=== PATIENT | male | born 1950 | race Caucasian/White ===

== ENCOUNTER 2017-01-08 17:58 | Inpatient (IN) | payer OTHER ==
[~2017-01-08] VITALS: Ht 182.9 cm; Wt 128.0 kg
[~2017-01-08 17:58] MED LIST: ACET-1256 PO; ASPI81TA28 PO; CALC-279 PO; CEFT1INJ57 IV; CRG625 PO; ERGO1CAP35 PO; FURO40TA3 PO; GLC/500 PO; METH-446 PO; MGNO400 PO; PEDICHW44 PO; SIME80CH PO; SIMV10TA5 PO; WARF2.5T8 PO; WARF5TAB7 PO
[2017-01-08] MEDS ORDERED: CEFEPIME IV 2,000 MG in DEXTROSE 5% 100ML 100 ML IV STA (18:25)
--- NOTE | 2017-01-08 18:29 | EMERGENCY ROOM VISIT NOTE ---
History Report prepared by Fabian: Ney Brandt Under the Supervision of: Dr. Paulino Thomas M.D. First contact with patient: 18:11 Chief Complaint: LEG PAIN,LEG INJURY Stated Complaint: SOB, SWOLLEN/RED LEG, NAUSEA History of Present Illness The patient is a 66 year old male who presents to the Emergency Room with complaints of a worsening left leg pain that started two days ago. He rates his pain as a 9/10 in severity. The patient states that two days ago he started to develop chills, shortness of breath, and had no appetite. He reports that he slept around 18 hours that day. The patient states that he has only been able to eat a banana, toast, and drink Gatorade in the last three days, but admits that he became nauseous today while eating. The patient states that he noticed his left leg started to swell a couple of days ago and worsened over the last couple of days. He reports that the the leg is red and sensitive to the touch. The patient reports that his heel is also painful and he is not able to put any weight on he left foot. The patient states that he also noticed that there were a couple of open sores on his leg and is concerned that he has an infection in his leg. He admits that he has had something similar happen three years ago and he was diagnosed with an infection. The patient states that his legs typically swell and reports that the swelling is worse in the summer. He admits to a history of Diabetes Mellitus, a pacemaker placement, and atrial fibrillation. The patient reports that he usually takes Coumadin for his atrial fibrillation, but admits he has not taken any in the last couple of days due to his symptoms. He denies a history of blood clots in his legs or lungs and CHF. The patient denies cough, fever, chest pain, injury to his leg, abdominal pain, urinary or bowel symptoms, and trauma. Source of History: patient, family Onset: two days ago Position: leg (left) Symptom Intensity: 9/10 Timing: worsening Associated Symptoms: + chills, + SOB, + nausea, No fevers, No cough, No chest pain, No abdominal pain, No melena, No hematochezia, No diarrhea, No urinary symptoms Review of Systems See HPI for pertinent positives & negatives. A total of 10 systems reviewed and were otherwise negative. Past Medical & Surgical Medical Problems: (1) Atrial fibrillation (2) CHF (congestive heart failure) (3) Diabetes mellitus (4) Diabetic neuropathy (5) Kidney disease (6) PVD (peripheral vascular disease) (7) Spinal stenosis Surgical Problems: (1) H/O gastric bypass Old medical records were reviewed. Nurse's notes were reviewed and I agree with. Family History AFIB SYMPTOMATIC BRADYCARDIA Social History Smoking Status: Former Smoker Marital Status: Occupation Status: unemployed Current/Historical Medications Scheduled Aspirin (Aspirin Ec), 81 MG PO DAILY Atorvastatin (Lipitor), 40 MG PO DAILY Calcium Citrate-Vitamin D (Calcium Citrate + D), 2 TABLETS PO DAILY Cyanocobalamin (B-12), 1,000 MCG INJ [id number] Metformin Hcl (Glucophage), 1,000 MG PO BID Pediatric Multiple Vitamins W/ (Flintstones Plus Iron), 1 CHW PO DAILY Warfarin Sod (Jantoven), 4.5 MG PO DAILY Scheduled PRN Acetaminophen (Tylenol), 1,000 MG PO Q6 PRN for Pain Furosemide (Lasix), 40 MG PO DAILY PRN for SWELLING Methocarbamol (Robaxin), 750 MG PO Q4 PRN for muscle spasms Simethicone (Gas-X), 80 MG PO for gas Allergies Coded Allergies: No Known Allergies (Unverified , 11/09/13) Physical Exam Vital Signs Date Time Temp Pulse Resp B/P (MAP) Pulse Ox O2 Delivery O2 Flow Rate FiO2 01/08/17 18:05 37.0 76 20 155/83 96 Room Air Physical Exam General: Chronically-ill appearing older male in no acute distress. HEENT: Normal cephalic atraumatic. Pupils are equal round and reactive to light. Extraocular movements are intact. Oropharynx is pink with moist mucous membranes. No swelling of the mouth lips or tongue. Neck: Supple with a midline trachea. No meningeal signs or stiffness, no JVD or bruits. No Stridor. Scar from previous neck surgery. Chest: Clear to auscultation bilaterally. No wheezes or rhonchi. No increased work of breathing. Heart: regular rate and rhythm. Abdomen: Soft nontender, nondistended without rebound guarding or rigidity. Extremities: Large scar on right arm from childhood injury. Chronic vascular changes with left greater than right edema. Left leg is red and warm extending slightly above the knee. Good perfusion. No cyanosis or clubbing. No calf tenderness or assymetry. Spine/Back. Non tender to palpation. No CVA tenderness Skin: Good turgor without rashes. Neurologic exam: Cranial nerves two through 12 are intact. Motor and sensation are intact and symmetrical throughout. Medical Decision & Procedures ER Provider Diagnostic Interpretation: Radiology results as stated below per my review and radiologist interpretation: CHEST ONE VIEW PORTABLE HISTORY: Atypical CHEST PAIN COMPARISON: None. FINDINGS: The lungs are clear. Cardiac silhouette is mildly enlarged. This remains unchanged. Sided single lead pacemaker. Cervical spinal fusion hardware. No pleural effusions. No pneumothorax. IMPRESSION: Stable mild cardiomegaly. No acute process within the chest. Electronically signed by: Josafat Hein M.D. 01/08/2017 7:19 PM Dictated Date/Time: 01/08/2017 7:17 PM LEFT LOWER EXTREMITY VENOUS DOPPLER HISTORY: Left leg swelling. COMPARISON STUDY: Venous Doppler 10/25/2013. FINDINGS: There is normal compressibility, flow, and augmentation within the left lower extremity deep venous system. Borderline enlarged left inguinal lymph nodes demonstrate a normal fatty hilum and a thin cortex. These may be reactive. There is subcutaneous edema within the left leg. IMPRESSION: No DVT within the left lower extremity. Electronically signed by: Josafat Hein M.D. 01/08/2017 9:06 PM Dictated Date/Time: 01/08/2017 9:05 PM Laboratory Results 01/08/17 18:45 Red Blood Count 4.91, Mean Corpuscular Volume 81.5, Mean Corpuscular Hemoglobin 26.5, Mean Corpuscular Hemoglobin Concent 32.5, Mean Platelet Volume 10.8, Neutrophils (%) (Auto) 85.8, Lymphocytes (%) (Auto) 5.8, Monocytes (%) (Auto) 7.9, Eosinophils (%) (Auto) 0.2, Basophils (%) (Auto) 0.1, Neutrophils # (Auto) 8.54, Lymphocytes # (Auto) 0.58, Monocytes # (Auto) 0.79, Eosinophils # (Auto) 0.02, Basophils # (Auto) 0.01 01/08/17 18:45 Test 01/08/17 18:45 01/08/17 18:55 White Blood Count 9.96 K/uL (4.8-10.8) Red Blood Count 4.91 M/uL (4.7-6.1) Hemoglobin 13.0 g/dL (14.0-18.0) Hematocrit 40.0 % (42-52) Mean Corpuscular Volume 81.5 fL (80-100) Mean Corpuscular Hemoglobin 26.5 pg (25-34) Mean Corpuscular Hemoglobin Concent 32.5 g/dl (32-36) Platelet Count 133 K/uL (130-400) Mean Platelet Volume 10.8 fL (7.4-10.4) Neutrophils (%) (Auto) 85.8 % Lymphocytes (%) (Auto) 5.8 % Monocytes (%) (Auto) 7.9 % Eosinophils (%) (Auto) 0.2 % Basophils (%) (Auto) 0.1 % Neutrophils # (Auto) 8.54 K/uL (1.4-6.5) Lymphocytes # (Auto) 0.58 K/uL (1.2-3.4) Monocytes # (Auto) 0.79 K/uL (0.11-0.59) Eosinophils # (Auto) 0.02 K/uL (0-0.5) Basophils # (Auto) 0.01 K/uL (0-0.2) RDW Standard Deviation 48.6 fL (36.4-46.3) RDW Coefficient of Variation 16.2 % (11.5-14.5) Immature Granulocyte % (Auto) 0.2 % Immature Granulocyte # (Auto) 0.02 K/uL (0.00-0.02) Prothrombin Time 12.7 SECONDS (9.0-12.0) Prothromb Time International Ratio 1.2 (0.9-1.1) Activated Partial Thromboplast Time 31.8 SECONDS (21.0-31.0) Partial Thromboplastin Ratio 1.2 Anion Gap 9.0 mmol/L (3-11) Est Creatinine Clear Calc Drug Dose 72.2 ml/min Estimated GFR () 59.6 Estimated GFR (Non- 51.4 BUN/Creatinine Ratio 17.6 (10-20) Calcium Level 7.9 mg/dl (8.5-10.1) Magnesium Level 1.8 mg/dl (1.8-2.4) Total Bilirubin 0.9 mg/dl (0.2-1) Direct Bilirubin 0.3 mg/dl (0-0.2) Aspartate Amino Transf (AST/SGOT) 38 U/L (15-37) Alanine Aminotransferase (ALT/SGPT) 28 U/L (12-78) Alkaline Phosphatase 70 U/L (45-117) Pro-B-Type Natriuretic Peptide 3241 pg/ml (0-900) Total Protein 6.6 gm/dl (6.4-8.2) Albumin 2.4 gm/dl (3.4-5.0) Lipase 150 U/L (73-393) Thyroid Stimulating Hormone (TSH) 4.250 uIu/ml (0.300-4.500) Hepatitis C Antibody Screen NEG (NEG) Bedside Lactic Acid Venous 1.90 mmol/L (0.90-1.70) Bedside Troponin I 0.030 ng/ml (0-0.045) Laboratory studies as stated above per my review. Medications Administered Medications (Trade) Dose Ordered Sig/Bill Route Start Time Stop Time Status Last Admin Dose Admin Cefepime HCl 2000 mg/Dextrose 112.5 ml @ 200 mls/hr ONE STAT IV 01/08/17 18:25 01/08/17 18:58 DC 01/08/17 19:09 200 MLS/HR Warfarin Sodium (Coumadin Tab) 5 mg 2016 ONCE PO 01/08/17 20:17 01/08/17 21:08 DC 01/08/17 22:04 5 MG Acetaminophen (Tylenol Tab) 650 mg 2016 ONCE PO 01/08/17 20:17 01/08/17 21:07 DC 01/08/17 22:12 650 MG ECG Indication: SOB/dyspnea Rate (beats per minute): 61 Rhythm: other (ventricularly paced) Findings: no acute ischemic change, other (underlying a fib) Comparison ECG Date: 10/25/2013 Change: no significant change ED Course 1815: Past medical records reviewed. The patient was evaluated in room C08, and a complete history and physical examination were performed. 1824: Ordered Cefepime HCl 2000 mg/Dextrose 112.4 ml @ 200 mls/hr IV. 1917: I reevaluated the patient and he is resting comfortably. 1934: I reevaluated the patient and he is resting comfortably. I updated him on his results and discussed his treatment plan. He agrees to the plan and will be further evaluated. 1937: I discussed the patients case with Erlin You. He understands the patients condition and agrees to accept the patient. The patient will be further evaluated. Medical Decision Differentials include, but are not limited to; cellulitis, CHF, DVT, compartment syndrome, electrolyte and metabolic abnormality. This patient comes in as described above. Placed room C8. Here for treatment and evaluation of left leg pain and swelling. On exam is red and appears very cellulitic. He has chronic vascular changes of his leg in as a set up for infection. He is a diabetic and has a pacemaker is on Coumadin as well for A. fib. He has not been taking his Coumadin and has not felt well over last couple days afebrile and has a stable blood pressure here. IV access established blood cultures was obtained lactic acid was obtained acid a cardiac workup an ultrasound of his leg was obtained to evaluate for possibility of a DVT. He was given empiric cefepime 2 g IV. He has no elevation of his white count or lactic acid to suggest sepsis. He is nothing to suggest acute cardiac event. There is no DVT on ultrasound. I do think he needs to be admitted for further IV antibiotics and treatment of the cellulitis. I have consulted Dr. Hansel Turner. Medication Reconcilliation Current Medication List: was personally reviewed by me Blood Pressure Screening Patient's blood pressure: Elevated blood pressure Referred to Hospitalist. Consults Time Called: 1937 Consulting Physician: Erlin You Returned Call: 1937 I discussed the patients case with Erlin You. He understands the patients condition and agrees to accept the patient. The patient will be further evaluated. Impression Primary Impression: Cellulitis Scribe Attestation The scribe's documentation has been prepared under my direction and personally reviewed by me in its entirety. I confirm that the note above accurately reflects all work, treatment, procedures, and medical decision making performed by me. Departure Information Dispostion Being Evaluated By Hospitalist Referrals Jocelyne Desai D.O. (PCP) Patient Instructions My [facility]
[2017-01-08] MEDS ORDERED: FRS/40 PO (18:43)
[2017-01-08] MEDS ORDERED: CHOL100027 PO (18:43)
[2017-01-08] MEDS ORDERED: MAGN400T6 PO (18:43)
[2017-01-08] MEDS ORDERED: CYCL10TA6 PO (18:43)
[2017-01-08] MEDS ORDERED: METF-384 PO (18:43)
[2017-01-08] MEDS ORDERED: CYAN1SUB13 INJ (18:43)
[2017-01-08] MEDS ORDERED: WARF3TAB6 PO (18:43)
[2017-01-08] MEDS ORDERED: ATOR-24 PO (18:43)
[2017-01-08] MEDS ORDERED: ACET-1256 PO (18:43)
[2017-01-08 19:07] LABS: BASO % 0.1 %; BASO ABS # 0.01 K/uL (0-0.2); COMPLETE YES; EOS % 0.2 %; IG% 0.2 %; LYMPH % 5.8 %; LYMPH ABS # 0.58 K/uL (1.2-3.4); MEAN CELL VOLUME 81.5 fL (80-100); MEAN CORPUSCULAR HEMOGLOBIN 26.5 pg (25-34); MEAN CORPUSCULAR HGB CONC 32.5 g/dl (32-36); MEAN PLATELET VOLUME 10.8 fL (7.4-10.4); MONO % 7.9 %; NEUT % 85.8 %; PLATELET COUNT 133 K/uL (130-400); RED BLOOD COUNT 4.91 M/uL (4.7-6.1); WHITE BLOOD COUNT 9.96 K/uL (4.8-10.8)
[2017-01-08 19:16] LABS: INR 1.2 (0.9-1.1); PARTIAL THROMBOPLASTIN RATIO 1.2; PROTHROMBIN TIME (PATIENT) 12.7 SECONDS (9.0-12.0)
--- NOTE | 2017-01-08 19:20 | DIAGNOSTIC IMAGING REPORT ---
CHEST ONE VIEW PORTABLE HISTORY: Atypical CHEST PAIN COMPARISON: None. FINDINGS: The lungs are clear. Cardiac silhouette is mildly enlarged. This remains unchanged. Sided single lead pacemaker. Cervical spinal fusion hardware. No pleural effusions. No pneumothorax. IMPRESSION: Stable mild cardiomegaly. No acute process within the chest. Electronically signed by: Josafat Hein M.D. 01/08/2017 7:19 PM Dictated Date/Time: 01/08/2017 7:17 PM
[2017-01-08 19:24] LABS: BUN/CREATININE RATIO 17.6 (10-20); CALCIUM 7.9 mg/dl (8.5-10.1); CREATININE 1.43 mg/dl (0.60-1.40); POTASSIUM 3.8 mmol/L (3.5-5.1)
[2017-01-08] MEDS ORDERED: ACETAMINOPHEN 325 MG TAB PO ONE (20:17)
[2017-01-08] MEDS ORDERED: WARFARIN SOD 5 MG TAB PO ONE (20:17)
[2017-01-08] MEDS ORDERED: HYDROmorphone INJ 0.5 MG/0.5 ML SYR IV PRN (20:30)
[2017-01-08] MEDS ORDERED: DEXTROSE 50% 50 ML SYR IV PRN (20:30)
[2017-01-08] MEDS ORDERED: GLUCAGON FOR INJ 1 MG VIAL SQ PRN (20:30)
[2017-01-08] MEDS ORDERED: GLUCOSE 10 TABS/TUBE PO PRN (20:30)
[2017-01-08] MEDS ORDERED: GLUCOSE 40% GEL 15 GM TUBE PO PRN (20:30)
[2017-01-08] MEDS ORDERED: IV FLUIDS COMPLETED PRN ×2 (20:30)
[2017-01-08] MEDS ORDERED: ONDANSETRON INJ 2 MG/ML 2 ML VIAL IV PRN (20:30)
[2017-01-08 20:32] LABS: MAGNESIUM 1.8 mg/dl (1.8-2.4); THYROID STIMULATING HORMONE 4.25 uIu/ml (0.300-4.500)
[2017-01-08 20:46] VITALS: BP 151/84; PULSE 60; TEMP 36.7; O2SAT 96; BMI 38.3
[2017-01-08] MEDS: INSULIN ASPART 100 UNITS/ML 3 ML PEN SC SCH (21:00)
--- NOTE | 2017-01-08 21:07 | DIAGNOSTIC IMAGING REPORT ---
LEFT LOWER EXTREMITY VENOUS DOPPLER HISTORY: Left leg swelling. COMPARISON STUDY: Venous Doppler 10/25/2013. FINDINGS: There is normal compressibility, flow, and augmentation within the left lower extremity deep venous system. Borderline enlarged left inguinal lymph nodes demonstrate a normal fatty hilum and a thin cortex. These may be reactive. There is subcutaneous edema within the left leg. IMPRESSION: No DVT within the left lower extremity. Electronically signed by: Josafat Hein M.D. 01/08/2017 9:06 PM Dictated Date/Time: 01/08/2017 9:05 PM
[2017-01-08 21:30] VITALS: BP 151/84; PULSE 60; TEMP 36.7; O2SAT 96
[2017-01-08] MEDS ORDERED: NSS + 20MEQ KCL 1000ML 1,000 ML IV ONE (21:30)
--- NOTE | 2017-01-08 21:47 | HISTORY & PHYSICAL EXAMINATION ---
DATE OF ADMISSION: 01/08/2017 PRIMARY CARE DOCTOR: Dr. Desai History was obtained from the patient's records. CHIEF COMPLAINT: Left leg swelling. HISTORY OF PRESENT ILLNESS: Medical history is significant for sick sinus syndrome status post pacemaker placement on Coumadin, hypertension; PVD as per records, DM2 on oral medications, chronic anemia ( baseline hemoglobin of 13), past tobacco abuse. Recent confinement was October 2013 for sepsis secondary to left lower extremity cellulitis. CS grew group G beta strep. Few days' history of achy left leg swelling, poor appetite, unable to take his Coumadin due to illness. Some exertional shortness of breath, no chest pain. No fever. Some chills. No recollection off leg trauma. At the Emergency Room, the patient received Cefepime. MEDICAL HISTORY: As above. SURGERIES: Neck surgery, tonsillectomy, toe amputation and finger tendon transfer. HOME MEDICATIONS: Include; metformin, Robaxin, simethicone, Flintstones, Coumadin, aspirin, Tylenol, Lipitor, B12 and Lasix. ALLERGIES: No known drug allergies. FAMILY HISTORY: Heart disease and diabetes. PERSONAL AND SOCIAL HISTORY: Past tobacco use. No chronic intake of alcoholic beverages. home care from time to time. REVIEW OF SYSTEMS: As per HPI. All 10 systems were reviewed. All other ROS negative. PHYSICAL EXAMINATION: VITAL SIGNS: Blood pressure was noted to be 150/80, pulse rate 60, RR 18, temp 36.6 and sats 98 on room air. GENERAL: Noted to be comfortable, in no respiratory distress. SKIN: Pallor. Warm. HEENT: Pale palpebral conjunctivae. No ptosis. Dry buccal mucosa. NECK: No JVD. Supple. No tenderness. CHEST: Clear to auscultation. No tenderness. HEART: irreg. No murmur. ABDOMEN: Soft and nontender. EXTREMITIES: Tender induration left lower extremity, venous stasis. NEUROLOGIC: Coherent. No gross focality. LABORATORIES: Hemoglobin 13, hematocrit 40, white cell count 9.1 and platelets of 140. Sodium 136, potassium 3.8 chloride 101, CO2 27, BUN 27, creatinine 1 and glucose 150. Troponin was 0.03. INR was 1.2. Hemoglobin A1c in September 2016 was 7.4. Chest x-ray; cardiomegaly. ASSESSMENT: 1. Cellulitis, left lower extremity hx chronic venous insufficiency as per records underlying lymphedema No sepsis. 2. Exertional SOB ? PE 3. Hypertension, slightly elevated. 4. Acute renal failure secondary to illness. 5. Sick sinus syndrome sp PPM Coumadin. INR subtherapeutic secondary to missed doses of Coumadin last few days 6. Chronic anemia, hemoglobin at baseline. 7. DM2, on oral meds Reasonable control as of recent outpatient hemoglobin A1c 8. Past tobacco abuse. PLAN: F Doxycycline trial Local measures for LLE cellulitis low threshold for broadening antibiotic coverage if no response to Doxycycline. baseline urinalysis. monitor creatinine response to IV fluids. Defer PE workup for now for exertional SOB sx as workup would not [employer]. Prefer to do IV Heparin - Coumadin bridge tx while INR subtherapeutic. ISS BG goal of 140-180. DVT prophylaxis. Coumadin INR 2-3 Full code. MTDD
[2017-01-08] MEDS: DOXYCYCLINE IV 100 MG in DEXTROSE 5% 100ML 100 ML IV SCH (21:58)
[2017-01-08] MEDS ORDERED: HEPARIN 25,000 UNIT/500ML D5W 500 ML IV PRN (22:00)
[2017-01-08] MEDS: HEPARIN 25,000 UNIT/500ML D5W 500 ML IV PRN (22:35)
[2017-01-08 22:45] LABS: URINE APPEARANCE CLEAR (CLEAR); URINE COLOR DK YELLOW; URINE EPITHELIAL CELL AUTO >30 /lpf (0-5); URINE NITRITE NEG (NEG); URINE SPECIFIC GRAVITY 1.029 (1.000-1.030); UROBILINOGEN POS (NEG); ZZUR CULT IF INDIC CLEAN CATCH YES
[2017-01-08 22:51] LABS: MANUAL MICROSCOPIC REQUIRED? NO; REVIEW REQ? YES; URINE BILIRUBIN NEG (NEG)
[2017-01-08 22:55] LABS: URINE PATH CASTS 1-5 GRANULAR CASTS /lpf (0)
[2017-01-09 00:01] VITALS: BP 133/71; PULSE 62; TEMP 36.8; O2SAT 95
[2017-01-09] MEDS: TRAMADOL HCL 50 MG TAB PO PRN ×3 (00:08→17:15)
[2017-01-09 04:46] LABS: BASO % 0.2 %; BASO ABS # 0.02 K/uL (0-0.2); COMPLETE YES; EOS % 0.8 %; HEMATOCRIT 42.4 % (42-52); IG% 0.3 %; LYMPH ABS # 0.81 K/uL (1.2-3.4); MEAN CELL VOLUME 81.4 fL (80-100); MEAN CORPUSCULAR HEMOGLOBIN 25.9 pg (25-34); MEAN CORPUSCULAR HGB CONC 31.8 g/dl (32-36); MEAN PLATELET VOLUME 11.7 fL (7.4-10.4); MONO % 9.8 %; NEUT % 79.9 %; PLATELET COUNT 140 K/uL (130-400); RED BLOOD COUNT 5.21 M/uL (4.7-6.1); WHITE BLOOD COUNT 8.96 K/uL (4.8-10.8)
[2017-01-09 05:03] LABS: INR 1.3 (0.9-1.1); PARTIAL THROMBOPLASTIN RATIO 1.8; PROTHROMBIN TIME (PATIENT) 13.7 SECONDS (9.0-12.0)
[2017-01-09 05:05] LABS: CREATININE 1.32 mg/dl (0.60-1.40)
[2017-01-09 05:06] LABS: BUN/CREATININE RATIO 19.3 (10-20); CALCIUM 8.1 mg/dl (8.5-10.1); POTASSIUM 3.9 mmol/L (3.5-5.1)
[2017-01-09 08:16] VITALS: BP 144/84; PULSE 62; TEMP 37.1; O2SAT 96
[2017-01-09] MEDS: ATORVASTATIN 40 MG TAB PO SCH (08:29)
[2017-01-09] MEDS: ASPIRIN 81 MG ECTAB PO SCH (08:29)
[2017-01-09] MEDS: DOXYCYCLINE IV 100 MG in DEXTROSE 5% 100ML 100 ML IV SCH ×2 (08:29→20:20)
[2017-01-09 08:30] VITALS: O2SAT 96
[2017-01-09] MEDS: INSULIN ASPART 100 UNITS/ML 3 ML PEN SC SCH ×4 (08:45→21:13)
--- NOTE | 2017-01-09 10:58 | Clinical Documentation Query ---
CLINICAL DOCUMENTATION QUERY Dr. CASTILLO, In your clinical opinion is this patient being managed for: ( x ) Chronic kidney disease, stage 3 ( ) Not Agree ( ) Other explanation of clinical findings (Please Explain) ( ) Unable to determine (Please Define) ( ) Need to Discuss The medical record reflects the following clinical findings, treatment, and risk factors. Clinical Indicators: 66 yo male documented as having "kidney disease." Review of limited historical record (Dec 2016) showed GFR of 51-56. 2013 data revealed GFR in the 64-90 range. Treatment: monitor PRP's, treat comorbid conditions Risk Factors: DM, A fib, PVD Please clarify and document your clinical opinion in the progress notes and discharge summary. Terms such as "probable", "suspected", "likely", "questionable", "possible", or "still to be ruled out" are acceptable. IF IN AGREEMENT, YOU MUST DOCUMENT ABOVE DIAGNOSTIC STATEMENT IN DAILY PROGRESS NOTES AND DISCHARGE SUMMARY. This document is not part of the patient's record. Thank You, Capri Castro RN [phone]
[2017-01-09] MEDS: CEFTRIAXONE SOD INJ 1 GM in DEXTROSE 5% ADD-VANTAGE 50ML 50 ML IV SCH (13:16)
[2017-01-09] MEDS: HEPARIN 25,000 UNIT/500ML D5W 500 ML IV PRN (13:23)
[2017-01-09 14:24] VITALS: Ht 182.9 cm; Wt 128.0 kg
[2017-01-09 15:22] VITALS: BP 153/88; PULSE 60; TEMP 36.9; O2SAT 96
[2017-01-09] MEDS ORDERED: WARFARIN SOD 5 MG TAB PO SCH (16:00)
--- NOTE | 2017-01-09 16:21 | Progress Note ---
Internal Med Progress Note Date of Service: Jan 09, 2017. Provider Documentation: SUBJECTIVE: resting comfortably afebrile says pain in left heel is improving was nauseous on weekend but ok now sob since last few days OBJECTIVE: Vital Signs-as noted below Exam: General-alert and oriented. Not in distress ENT-Normal hearing Neck-no neck masses Lungs-CTA b/l no wheezing or crackles Heart-S1 and S2 heard. Regular rate and rhythm, no murmurs Abdomen-Soft Bowel sounds present no tenderness present no distension Extremities- b/l lower extremity chronic edema. Left lower extremity erythematous Neuro-alert and awake moves extremities Lab data as noted below. ASSESSMENT & PLAN: 1. Cellulitis, left lower extremity hx chronic venous insufficiency as per records underlying lymphedema No sepsis. started on doxycycline hx of group G beta strep cellulitis in the past will add Rocephin to cover strep will monitor response. 2. Exertional SOB ? PE No DVT on left lower extremity US already on iv heparin and Coumadin. 3. Hypertension, slightly elevated. Not on mes at home will monitor. 4. Acute renal failure secondary to illness. Resolved. 5. Sick sinus syndrome sp PPM Coumadin. INR subtherapeutic secondary to missed doses of Coumadin last few days secondary to nausea. iv heparin bridge. At home on Coumadin 4.5mg daily currently laced on Coumadin 6mg daily. f/u inr. 6. Chronic anemia, hemoglobin at baseline. 7. DM2, on oral meds Reasonable control as of recent outpatient hemoglobin A1c Needs prescription for FreeStyle Lite test strips and Lancets to check 1x/day at discharge. 8. CKD stage 3 f/u labs 9. Past tobacco abuse. DVT PROPHYLAXIS on iv heparin DISPOSITION to be determined pt/ot prior to discharge Vital Signs: Date Time Temp Pulse Resp B/P (MAP) Pulse Ox O2 Delivery O2 Flow Rate FiO2 01/09/17 15:22 36.9 60 17 153/88 (109) 96 01/09/17 08:30 96 Room Air 01/09/17 08:16 37.1 62 17 144/84 (104) 96 01/09/17 00:01 36.8 62 20 133/71 (91) 95 Room Air 01/09/17 00:00 Room Air 01/08/17 21:30 36.7 60 20 151/84 (106) 96 Room Air 01/08/17 20:46 36.7 60 20 151/84 96 Room Air 01/08/17 20:33 75 18 143/82 98 Room Air 01/08/17 18:05 37.0 76 20 155/83 96 Room Air Lab Results: Results Past 24 Hours Test 01/08/17 18:45 01/08/17 18:55 01/08/17 22:00 01/08/17 22:14 Range/Units White Blood Count 9.96 4.8-10.8 K/uL Red Blood Count 4.91 4.7-6.1 M/uL Hemoglobin 13.0 14.0-18.0 g/dL Hematocrit 40.0 42-52 % Mean Corpuscular Volume 81.5 80-100 fL Mean Corpuscular Hemoglobin 26.5 25-34 pg Mean Corpuscular Hemoglobin Concent 32.5 32-36 g/dl Platelet Count 133 130-400 K/uL Mean Platelet Volume 10.8 7.4-10.4 fL Neutrophils (%) (Auto) 85.8 % Lymphocytes (%) (Auto) 5.8 % Monocytes (%) (Auto) 7.9 % Eosinophils (%) (Auto) 0.2 % Basophils (%) (Auto) 0.1 % Neutrophils # (Auto) 8.54 1.4-6.5 K/uL Lymphocytes # (Auto) 0.58 1.2-3.4 K/uL Monocytes # (Auto) 0.79 0.11-0.59 K/uL Eosinophils # (Auto) 0.02 0-0.5 K/uL Basophils # (Auto) 0.01 0-0.2 K/uL RDW Standard Deviation 48.6 36.4-46.3 fL RDW Coefficient of Variation 16.2 11.5-14.5 % Immature Granulocyte % (Auto) 0.2 % Immature Granulocyte # (Auto) 0.02 0.00-0.02 K/uL Prothrombin Time 12.7 9.0-12.0 SECONDS Prothromb Time International Ratio 1.2 0.9-1.1 Activated Partial Thromboplast Time 31.8 21.0-31.0 SECONDS Partial Thromboplastin Ratio 1.2 Sodium Level 134 136-145 mmol/L Potassium Level 3.8 3.5-5.1 mmol/L Chloride Level 101 98-107 mmol/L Carbon Dioxide Level 24 21-32 mmol/L Anion Gap 9.0 3-11 mmol/L Blood Urea Nitrogen 25 7-18 mg/dl Creatinine 1.43 0.60-1.40 mg/dl Est Creatinine Clear Calc Drug Dose 72.2 ml/min Estimated GFR () 59.6 Estimated GFR (Non- 51.4 BUN/Creatinine Ratio 17.6 10-20 Random Glucose 150 70-99 mg/dl Calcium Level 7.9 8.5-10.1 mg/dl Magnesium Level 1.8 1.8-2.4 mg/dl Total Bilirubin 0.9 0.2-1 mg/dl Direct Bilirubin 0.3 0-0.2 mg/dl Aspartate Amino Transf (AST/SGOT) 38 15-37 U/L Alanine Aminotransferase (ALT/SGPT) 28 12-78 U/L Alkaline Phosphatase 70 45-117 U/L Pro-B-Type Natriuretic Peptide 3241 0-900 pg/ml Total Protein 6.6 6.4-8.2 gm/dl Albumin 2.4 3.4-5.0 gm/dl Lipase 150 73-393 U/L Thyroid Stimulating Hormone (TSH) 4.250 0.300-4.500 uIu/ml Hepatitis C Antibody Screen NEG NEG Bedside Lactic Acid Venous 1.90 0.90-1.70 mmol/L Bedside Troponin I 0.030 0-0.045 ng/ml Urine Color DK YELLOW Urine Appearance CLEAR CLEAR Urine pH 5.0 4.5-7.5 Urine Specific [place] 1.029 1.000-1.030 Urine Protein 4+ NEG Urine Glucose (UA) NEG NEG Urine Ketones TRACE NEG Urine Occult Blood 1+ NEG Urine Nitrite NEG NEG Urine Bilirubin NEG NEG Urine Urobilinogen POS NEG Urine Leukocyte Esterase TRACE NEG Urine WBC (Auto) 10-30 0-5 /hpf Urine RBC (Auto) 0-4 0-4 /hpf Urine Hyaline Casts (Auto) 1-5 0-5 /lpf Urine Epithelial Cells (Auto) >30 0-5 /lpf Urine Bacteria (Auto) 2+ NEG Urine Renal Epithelial Cells 0-5 /lpf Urine Pathogenic Casts 1-5 GRANULAR CASTS 0 /lpf Urine Yeast (Auto) NONE PRSENT Bedside Glucose 139 70-99 mg/dl Test 01/09/17 04:24 01/09/17 08:03 01/09/17 11:51 01/09/17 16:35 Range/Units White Blood Count 8.96 4.8-10.8 K/uL Red Blood Count 5.21 4.7-6.1 M/uL Hemoglobin 13.5 14.0-18.0 g/dL Hematocrit 42.4 42-52 % Mean Corpuscular Volume 81.4 80-100 fL Mean Corpuscular Hemoglobin 25.9 25-34 pg Mean Corpuscular Hemoglobin Concent 31.8 32-36 g/dl Platelet Count 140 130-400 K/uL Mean Platelet Volume 11.7 7.4-10.4 fL Neutrophils (%) (Auto) 79.9 % Lymphocytes (%) (Auto) 9.0 % Monocytes (%) (Auto) 9.8 % Eosinophils (%) (Auto) 0.8 % Basophils (%) (Auto) 0.2 % Neutrophils # (Auto) 7.15 1.4-6.5 K/uL Lymphocytes # (Auto) 0.81 1.2-3.4 K/uL Monocytes # (Auto) 0.88 0.11-0.59 K/uL Eosinophils # (Auto) 0.07 0-0.5 K/uL Basophils # (Auto) 0.02 0-0.2 K/uL RDW Standard Deviation 48.3 36.4-46.3 fL RDW Coefficient of Variation 16.0 11.5-14.5 % Immature Granulocyte % (Auto) 0.3 % Immature Granulocyte # (Auto) 0.03 0.00-0.02 K/uL Prothrombin Time 13.7 9.0-12.0 SECONDS Prothromb Time International Ratio 1.3 0.9-1.1 Activated Partial Thromboplast Time 47.1 21.0-31.0 SECONDS Partial Thromboplastin Ratio 1.8 Sodium Level 133 136-145 mmol/L Potassium Level 3.9 3.5-5.1 mmol/L Chloride Level 102 98-107 mmol/L Carbon Dioxide Level 23 21-32 mmol/L Anion Gap 8.0 3-11 mmol/L Blood Urea Nitrogen 25 7-18 mg/dl Creatinine 1.32 0.60-1.40 mg/dl Est Creatinine Clear Calc Drug Dose 78.2 ml/min Estimated GFR () 65.6 Estimated GFR (Non- 56.6 BUN/Creatinine Ratio 19.3 10-20 Random Glucose 161 70-99 mg/dl Calcium Level 8.1 8.5-10.1 mg/dl Bedside Glucose 153 169 136 70-99 mg/dl Microbiology Results 01/08/17 Blood Culture, Received Pending 01/08/17 Blood Culture, Received Pending 01/08/17 Urine Culture - Preliminary, Resulted PIN-POINT GROWTH PRESENT, REINCUBATING.
[2017-01-09 17:00] VITALS: O2SAT 96
[2017-01-09] MEDS: WARFARIN SOD 6 MG TAB PO SCH (17:16)
[2017-01-09] MEDS: ACETAMINOPHEN 325 MG TAB PO PRN (20:18)
[2017-01-09 23:01] VITALS: BP 156/85; PULSE 66; TEMP 36.9; O2SAT 97
[2017-01-10] MEDS: TRAMADOL HCL 50 MG TAB PO PRN ×3 (03:04→15:29)
[2017-01-10] MEDS: HEPARIN 25,000 UNIT/500ML D5W 500 ML IV PRN ×2 (03:32→19:12)
[2017-01-10 04:42] LABS: BASO % 0.2 %; BASO ABS # 0.02 K/uL (0-0.2); COMPLETE YES; EOS % 1.9 %; HEMATOCRIT 38.6 % (42-52); IG% 0.6 %; LYMPH % 9.6 %; LYMPH ABS # 0.87 K/uL (1.2-3.4); MEAN CELL VOLUME 80.1 fL (80-100); MEAN CORPUSCULAR HEMOGLOBIN 25.7 pg (25-34); MEAN CORPUSCULAR HGB CONC 32.1 g/dl (32-36); MEAN PLATELET VOLUME 10.4 fL (7.4-10.4); MONO % 9.6 %; NEUT % 78.1 %; PLATELET COUNT 141 K/uL (130-400); RED BLOOD COUNT 4.82 M/uL (4.7-6.1); WHITE BLOOD COUNT 9.05 K/uL (4.8-10.8)
[2017-01-10 04:58] LABS: BUN/CREATININE RATIO 16.9 (10-20); CALCIUM 8.1 mg/dl (8.5-10.1); CREATININE 1.15 mg/dl (0.60-1.40); POTASSIUM 3.7 mmol/L (3.5-5.1)
[2017-01-10 05:05] LABS: INR 1.3 (0.9-1.1); PARTIAL THROMBOPLASTIN RATIO 2.1; PROTHROMBIN TIME (PATIENT) 14.5 SECONDS (9.0-12.0)
[2017-01-10 07:42] VITALS: BP 164/90; PULSE 67; TEMP 36.7; O2SAT 97
[2017-01-10 08:00] VITALS: O2SAT 97
[2017-01-10] MEDS: DOXYCYCLINE IV 100 MG in DEXTROSE 5% 100ML 100 ML IV SCH ×2 (08:58→20:13)
[2017-01-10] MEDS: INSULIN ASPART 100 UNITS/ML 3 ML PEN SC SCH ×4 (08:58→20:13)
[2017-01-10] MEDS: ASPIRIN 81 MG ECTAB PO SCH (08:59)
[2017-01-10] MEDS: ATORVASTATIN 40 MG TAB PO SCH (08:59)
--- NOTE | 2017-01-10 13:05 | Progress Note ---
Internal Med Progress Note Date of Service: Jan 10, 2017. Provider Documentation: SUBJECTIVE: awake and alert. denies pain. denies shortness of breath. OBJECTIVE: Exam: General- no acute distress, breathing comfortably on room air Eyes- EOMI ENT- no epistaxis Neck- no JVD Lungs- CTABL, no wheezing, no crackles Heart- regular rate Abdomen- soft, nontender, + bowel sounds Extremities- lower extremity with chronic edema of lower extremities bilterally with left leg greater then the right side and left leg with erythema from ankle to to below the knee Neuro-no focal neurological deficits ASSESSMENT & PLAN: 1. Cellulitis, left lower extremity History of chronic venous insufficiency as per records, patient reports history of furosemide intermittently in the past at home Ultrasound of Left Lower extremity: No DVT. Borderline enlarged left inguinal lymph nodes demonstrate a normal fatty hilum and a thin cortex. These may be reactive. There is subcutaneous edema within the left leg Patient was started on Doxycycline and with history of group G beta strep cellulitis in the past, patient has also been on IV ceftriaxone for strep coverage 2. History of Exertional SOB No DVT on left lower extremity US, On IV heparin and Coumadin Obtain PT/OT 3. Hypertension Not on medications at home Start HCTZ as inpatient 4. Acute renal failure secondary to illness. Resolved.Trend GFR 5. Sick sinus syndrome sp PPM Coumadin. INR subtherapeutic secondary to missed doses of Coumadin 4.5 mg daily at home from history of nausea Currently on IV heparin with bridge to Coumadin, currently Coumadin 6 mg daily INR on 01/10/17 is 1.3, subtherapeutic Continue IV heparin and daily Coumadin 6. Chronic anemia, hemoglobin at baseline. 7. DM2, on oral meds Needs prescription for FreeStyle Lite test strips and Lancets to check 1x/day at discharge. 8. CKD, trend GFR 9. Past tobacco abuse. DVT PROPHYLAXIS on IV heparin Vital Signs: Date Time Temp Pulse Resp B/P (MAP) Pulse Ox O2 Delivery O2 Flow Rate FiO2 01/10/17 07:42 36.7 67 20 164/90 (114) 97 Room Air 01/10/17 02:29 Room Air 01/09/17 23:01 36.9 66 18 156/85 (108) 97 Room Air 01/09/17 20:30 Room Air 01/09/17 17:00 96 Room Air 01/09/17 15:22 36.9 60 17 153/88 (109) 96 Lab Results: Results Past 24 Hours Test 01/09/17 16:35 01/09/17 20:12 01/10/17 04:30 01/10/17 07:46 Range/Units Bedside Glucose 136 183 146 70-99 mg/dl White Blood Count 9.05 4.8-10.8 K/uL Red Blood Count 4.82 4.7-6.1 M/uL Hemoglobin 12.4 14.0-18.0 g/dL Hematocrit 38.6 42-52 % Mean Corpuscular Volume 80.1 80-100 fL Mean Corpuscular Hemoglobin 25.7 25-34 pg Mean Corpuscular Hemoglobin Concent 32.1 32-36 g/dl Platelet Count 141 130-400 K/uL Mean Platelet Volume 10.4 7.4-10.4 fL Neutrophils (%) (Auto) 78.1 % Lymphocytes (%) (Auto) 9.6 % Monocytes (%) (Auto) 9.6 % Eosinophils (%) (Auto) 1.9 % Basophils (%) (Auto) 0.2 % Neutrophils # (Auto) 7.07 1.4-6.5 K/uL Lymphocytes # (Auto) 0.87 1.2-3.4 K/uL Monocytes # (Auto) 0.87 0.11-0.59 K/uL Eosinophils # (Auto) 0.17 0-0.5 K/uL Basophils # (Auto) 0.02 0-0.2 K/uL RDW Standard Deviation 46.0 36.4-46.3 fL RDW Coefficient of Variation 15.7 11.5-14.5 % Immature Granulocyte % (Auto) 0.6 % Immature Granulocyte # (Auto) 0.05 0.00-0.02 K/uL Prothrombin Time 14.5 9.0-12.0 SECONDS Prothromb Time International Ratio 1.3 0.9-1.1 Activated Partial Thromboplast Time 55.2 21.0-31.0 SECONDS Partial Thromboplastin Ratio 2.1 Sodium Level 135 136-145 mmol/L Potassium Level 3.7 3.5-5.1 mmol/L Chloride Level 102 98-107 mmol/L Carbon Dioxide Level 24 21-32 mmol/L Anion Gap 9.0 3-11 mmol/L Blood Urea Nitrogen 19 7-18 mg/dl Creatinine 1.15 0.60-1.40 mg/dl Est Creatinine Clear Calc Drug Dose 89.7 ml/min Estimated GFR () 77.5 Estimated GFR (Non- 66.9 BUN/Creatinine Ratio 16.9 10-20 Random Glucose 148 70-99 mg/dl Calcium Level 8.1 8.5-10.1 mg/dl Test 01/10/17 11:32 Range/Units Bedside Glucose 127 70-99 mg/dl
[2017-01-10] MEDS ORDERED: HYDROCHLOROTHIAZIDE 25 MG TAB PO STA (13:20)
[2017-01-10] MEDS: CEFTRIAXONE SOD INJ 1 GM in DEXTROSE 5% ADD-VANTAGE 50ML 50 ML IV SCH (13:53)
[2017-01-10] MEDS: ACETAMINOPHEN 325 MG TAB PO PRN (13:59)
[2017-01-10] MEDS ORDERED: SENNA 8.6 MG TAB PO ONE (15:15)
[2017-01-10] MEDS ORDERED: DOCUSATE SODIUM 100 MG CAP PO ONE (15:15)
[2017-01-10 15:26] VITALS: PULSE 71; O2SAT 98
[2017-01-10] MEDS: WARFARIN SOD 6 MG TAB PO SCH (15:30)
[2017-01-10 15:37] VITALS: BP 149/91; PULSE 64; TEMP 36.1; O2SAT 96
[2017-01-10 16:00] VITALS: O2SAT 97
[2017-01-10] MEDS: DOCUSATE SODIUM 100 MG CAP PO SCH (20:14)
[2017-01-10 23:10] VITALS: BP 146/87; PULSE 64; TEMP 36.4; O2SAT 97
[2017-01-11] MEDS: TRAMADOL HCL 50 MG TAB PO PRN (01:18)
[2017-01-11] MEDS ORDERED: NURSING DECISION MEDICATION ORDER SCH ×2 (01:30→05:45)
[2017-01-11] MEDS ORDERED: COUGH DROP (SUGAR FREE) LOZ 24 LOZ/1 BOX PO PRN (01:30)
[2017-01-11] MEDS ORDERED: MICONAZOLE NITRATE POWDER 43 GM EXT PRN (06:00)
[2017-01-11 06:13] LABS: BASO % 0.1 %; BASO ABS # 0.01 K/uL (0-0.2); COMPLETE YES; EOS % 2.5 %; HEMATOCRIT 36.6 % (42-52); IG% 0.6 %; LYMPH % 14.7 %; LYMPH ABS # 1.05 K/uL (1.2-3.4); MEAN CELL VOLUME 79.7 fL (80-100); MEAN CORPUSCULAR HEMOGLOBIN 26.6 pg (25-34); MEAN CORPUSCULAR HGB CONC 33.3 g/dl (32-36); MEAN PLATELET VOLUME 11.1 fL (7.4-10.4); MONO % 10.8 %; NEUT % 71.3 %; PLATELET COUNT 158 K/uL (130-400); RED BLOOD COUNT 4.59 M/uL (4.7-6.1); WHITE BLOOD COUNT 7.16 K/uL (4.8-10.8)
[2017-01-11 06:30] LABS: INR 1.6 (0.9-1.1); PARTIAL THROMBOPLASTIN RATIO 2.1; PROTHROMBIN TIME (PATIENT) 17.7 SECONDS (9.0-12.0)
[2017-01-11] MEDS: HEPARIN 25,000 UNIT/500ML D5W 500 ML IV PRN ×2 (06:37→23:48)
[2017-01-11 06:39] LABS: BUN/CREATININE RATIO 16.1 (10-20); POTASSIUM 3.3 mmol/L (3.5-5.1)
[2017-01-11 07:31] VITALS: BP 148/81; PULSE 60; TEMP 36.8; O2SAT 97
[2017-01-11] MEDS ORDERED: POTASSIUM CHLORIDE 20 MEQ TABCR PO STA (07:48)
[2017-01-11 08:15] VITALS: O2SAT 97
[2017-01-11] MEDS: DOCUSATE SODIUM 100 MG CAP PO SCH ×2 (08:18→19:25)
[2017-01-11] MEDS: DOXYCYCLINE IV 100 MG in DEXTROSE 5% 100ML 100 ML IV SCH ×2 (08:18→20:49)
[2017-01-11] MEDS: ASPIRIN 81 MG ECTAB PO SCH (08:18)
[2017-01-11] MEDS: ATORVASTATIN 40 MG TAB PO SCH (08:19)
[2017-01-11] MEDS: HYDROCHLOROTHIAZIDE 25 MG TAB PO SCH (08:19)
[2017-01-11] MEDS: SENNA 8.6 MG TAB PO SCH (08:20)
[2017-01-11] MEDS: INSULIN ASPART 100 UNITS/ML 3 ML PEN SC SCH ×4 (09:25→20:49)
[2017-01-11] MEDS: CEFTRIAXONE SOD INJ 1 GM in DEXTROSE 5% ADD-VANTAGE 50ML 50 ML IV SCH (12:20)
[2017-01-11 14:59] VITALS: BP 143/79; PULSE 63; TEMP 37.3; O2SAT 97
[2017-01-11] MEDS: WARFARIN SOD 6 MG TAB PO SCH (15:56)
[2017-01-11] MEDS ORDERED: MAGNESIUM SULFATE 1GM / D5W 1 GM BAG IV STA (17:11)
--- NOTE | 2017-01-11 17:20 | Progress Note ---
Internal Med Progress Note Date of Service: Jan 11, 2017. Provider Documentation: SUBJECTIVE: awake and alert. denies pain. denies shortness of breath. OBJECTIVE: Exam: General- no acute distress, breathing comfortably on room air Eyes- EOMI ENT- no epistaxis Neck- no JVD Lungs- CTABL, no wheezing, no crackles Heart- regular rate Abdomen- soft, nontender, + bowel sounds Extremities- lower extremity with chronic edema of lower extremities bilaterally with left leg greater then the right side and left leg with erythema from ankle to to below the knee Neuro-no focal neurological deficits ASSESSMENT & PLAN: Cellulitis, left lower extremity History of chronic venous insufficiency as per records, patient reports history of furosemide intermittently in the past at home Ultrasound of Left Lower extremity: No DVT. Borderline enlarged left inguinal lymph nodes demonstrate a normal fatty hilum and a thin cortex. These may be reactive. There is subcutaneous edema within the left leg Patient was started on Doxycycline and with history of group G beta strep cellulitis in the past, patient has also been on IV ceftriaxone for strep coverage History of Exertional SOB No DVT on left lower extremity US, On IV heparin and Coumadin PT/OT Reports that he used to be on intermittent Lasix at home in the past. Would not start Lasix at this time given serum electrolyte deficiencies while receiving HCTZ for blood pressure control Hypokalemia/Hypomagnesemia: given potassium and magnesium supplements today Acute renal failure secondary to illness. Resolved. Trend GFR 5. Sick sinus syndrome sp PPM Coumadin. INR subtherapeutic secondary to missed doses of Coumadin 4.5 mg daily at home from history of nausea Currently on IV heparin with bridge to Coumadin, currently Coumadin 6 mg daily INR on 01/11/17 is 1.6, subtherapeutic Continue IV heparin and daily Coumadin 6. Chronic anemia, hemoglobin at baseline. 7. DM2, on oral meds Needs prescription for FreeStyle Lite test strips and Lancets to check 1x/day at discharge. 8. CKD, trend GFR 9. Past tobacco use / smoking cessation counseling ordered DVT PROPHYLAXIS on IV heparin and on oral Coumadin Vital Signs: Date Time Temp Pulse Resp B/P (MAP) Pulse Ox O2 Delivery O2 Flow Rate FiO2 01/11/17 16:00 Room Air 01/11/17 14:59 37.3 63 18 143/79 (100) 97 Room Air 01/11/17 08:15 97 Room Air 01/11/17 07:31 36.8 60 18 148/81 (103) 97 Room Air 01/11/17 07:31 97 Room Air 01/11/17 00:00 Room Air 01/10/17 23:10 36.4 64 20 146/87 (106) 97 Room Air 01/10/17 20:00 Room Air Lab Results: Results Past 24 Hours Test 01/10/17 20:08 01/11/17 05:06 01/11/17 07:17 01/11/17 11:32 Range/Units Bedside Glucose 151 131 149 70-99 mg/dl White Blood Count 7.16 4.8-10.8 K/uL Red Blood Count 4.59 4.7-6.1 M/uL Hemoglobin 12.2 14.0-18.0 g/dL Hematocrit 36.6 42-52 % Mean Corpuscular Volume 79.7 80-100 fL Mean Corpuscular Hemoglobin 26.6 25-34 pg Mean Corpuscular Hemoglobin Concent 33.3 32-36 g/dl Platelet Count 158 130-400 K/uL Mean Platelet Volume 11.1 7.4-10.4 fL Neutrophils (%) (Auto) 71.3 % Lymphocytes (%) (Auto) 14.7 % Monocytes (%) (Auto) 10.8 % Eosinophils (%) (Auto) 2.5 % Basophils (%) (Auto) 0.1 % Neutrophils # (Auto) 5.11 1.4-6.5 K/uL Lymphocytes # (Auto) 1.05 1.2-3.4 K/uL Monocytes # (Auto) 0.77 0.11-0.59 K/uL Eosinophils # (Auto) 0.18 0-0.5 K/uL Basophils # (Auto) 0.01 0-0.2 K/uL RDW Standard Deviation 45.5 36.4-46.3 fL RDW Coefficient of Variation 15.6 11.5-14.5 % Immature Granulocyte % (Auto) 0.6 % Immature Granulocyte # (Auto) 0.04 0.00-0.02 K/uL Prothrombin Time 17.7 9.0-12.0 SECONDS Prothromb Time International Ratio 1.6 0.9-1.1 Activated Partial Thromboplast Time 53.4 21.0-31.0 SECONDS Partial Thromboplastin Ratio 2.1 Sodium Level 134 136-145 mmol/L Potassium Level 3.3 3.5-5.1 mmol/L Chloride Level 101 98-107 mmol/L Carbon Dioxide Level 26 21-32 mmol/L Anion Gap 7.0 3-11 mmol/L Blood Urea Nitrogen 16 7-18 mg/dl Creatinine 1.00 0.60-1.40 mg/dl Est Creatinine Clear Calc Drug Dose 103.2 ml/min Estimated GFR () 91.8 Estimated GFR (Non- 79.2 BUN/Creatinine Ratio 16.1 10-20 Random Glucose 135 70-99 mg/dl Calcium Level 8.0 8.5-10.1 mg/dl Magnesium Level 1.7 1.8-2.4 mg/dl Test 01/11/17 16:43 Range/Units Bedside Glucose 125 70-99 mg/dl
[2017-01-11] MEDS: MAGNESIUM SULFATE 1GM / D5W 1 GM in PREMIXED IN D5W 100 ML IV SCH ×2 (18:12→19:24)
[2017-01-11 23:54] VITALS: BP 148/79; PULSE 60; TEMP 36.9; O2SAT 95
[2017-01-12 05:06] LABS: BASO % 0.2 %; BASO ABS # 0.01 K/uL (0-0.2); COMPLETE YES; EOS % 2.6 %; HEMATOCRIT 39.3 % (42-52); IG% 0.7 %; LYMPH % 17.7 %; LYMPH ABS # 1.07 K/uL (1.2-3.4); MEAN CELL VOLUME 79.9 fL (80-100); MEAN CORPUSCULAR HGB CONC 32.6 g/dl (32-36); MEAN PLATELET VOLUME 10.2 fL (7.4-10.4); MONO % 10.9 %; NEUT % 67.9 %; PLATELET COUNT 200 K/uL (130-400); RED BLOOD COUNT 4.92 M/uL (4.7-6.1); WHITE BLOOD COUNT 6.04 K/uL (4.8-10.8)
[2017-01-12 05:26] LABS: INR 2.3 (0.9-1.1); PARTIAL THROMBOPLASTIN RATIO 2.8; PROTHROMBIN TIME (PATIENT) 25.3 SECONDS (9.0-12.0)
[2017-01-12 05:50] LABS: ALB/GLOB RATIO 0.5 (0.9-2); BUN/CREATININE RATIO 13.3 (10-20); CALCIUM 8.3 mg/dl (8.5-10.1); CREATININE 1.09 mg/dl (0.60-1.40); MAGNESIUM 1.9 mg/dl (1.8-2.4); POTASSIUM 3.8 mmol/L (3.5-5.1)
[2017-01-12] MEDS ORDERED: NURSING VERBAL MED ORDER ONE (06:15)
[2017-01-12 07:49] VITALS: BP 134/76; PULSE 61; TEMP 36.8; O2SAT 95
[2017-01-12] MEDS: DOCUSATE SODIUM 100 MG CAP PO SCH ×2 (08:00→20:39)
[2017-01-12] MEDS: SENNA 8.6 MG TAB PO SCH (08:00)
[2017-01-12] MEDS: DOXYCYCLINE IV 100 MG in DEXTROSE 5% 100ML 100 ML IV SCH (08:02)
[2017-01-12] MEDS: ASPIRIN 81 MG ECTAB PO SCH (08:02)
[2017-01-12] MEDS: HYDROCHLOROTHIAZIDE 25 MG TAB PO SCH (08:02)
[2017-01-12] MEDS: ATORVASTATIN 40 MG TAB PO SCH (08:02)
[2017-01-12] MEDS: INSULIN ASPART 100 UNITS/ML 3 ML PEN SC SCH ×4 (09:10→20:36)
[2017-01-12] MEDS: TRAMADOL HCL 50 MG TAB PO PRN ×2 (09:17→15:59)
[2017-01-12] MEDS ORDERED: CEPHALEXIN MONOHYDRATE 500 MG CAP PO SCH (12:00)
[2017-01-12 15:07] VITALS: BP 138/78; PULSE 60; TEMP 37; O2SAT 94
[2017-01-12 16:00] VITALS: O2SAT 94
[2017-01-12] MEDS: WARFARIN SOD 6 MG TAB PO SCH (16:00)
[2017-01-12] MEDS: CEPHALEXIN MONOHYDRATE 500 MG CAP PO SCH ×2 (18:04→20:37)
--- NOTE | 2017-01-12 20:17 | Progress Note ---
Internal Med Progress Note Date of Service: Jan 12, 2017. Provider Documentation: SUBJECTIVE: awake and alert. denies pain. denies shortness of breath. OBJECTIVE: Exam: General- no acute distress, breathing comfortably on room air Eyes- EOMI ENT- no epistaxis Neck- no JVD Lungs- CTABL, no wheezing, no crackles Heart- regular rate Abdomen- soft, nontender, + bowel sounds Extremities- lower extremity with chronic edema of lower extremities bilaterally with left leg greater then the right side and left leg with erythema from ankle to to below the knee Neuro-no focal neurological deficits ASSESSMENT & PLAN: Cellulitis, left lower extremity History of chronic venous insufficiency as per records, patient reports history of furosemide intermittently in the past at home Ultrasound of Left Lower extremity: No DVT. Borderline enlarged left inguinal lymph nodes demonstrate a normal fatty hilum and a thin cortex. These may be reactive. There is subcutaneous edema within the left leg Patient was started on Doxycycline IV and with history of group G beta strep cellulitis in the past, patient has also been on IV ceftriaxone for strep coverage, transitioned to oral doxycycline and oral Keflex on 01/12/17 Acute renal failure secondary to illness. Resolved. History of Exertional SOB, Reports that he used to be on intermittent Lasix at home in the past but no longer No DVT on left lower extremity US, On IV heparin and Coumadin PT/OT Sick sinus syndrome sp PPM Coumadin. INR subtherapeutic secondary to missed doses of Coumadin 4.5 mg daily at home from history of nausea Was on IV heparin with bridge to Coumadin, currently Coumadin 6 mg daily INR on 01/12/17 is 2.3, therapeutic Chronic anemia, hemoglobin at baseline. DM2, on oral meds Needs prescription for FreeStyle Lite test strips and Lancets to check 1x/day at discharge. CKD, trend GFR Past tobacco use / smoking cessation counseling ordered DVT PROPHYLAXIS coumadin with therapeutic INR Disposition: patient will have outpatient followup after hospital stay scheduled 01/20/2017 2:00 PM Jocelyne Desai DO Internal Medicine [facility] Vital Signs: Date Time Temp Pulse Resp B/P (MAP) Pulse Ox O2 Delivery O2 Flow Rate FiO2 01/12/17 16:00 94 Room Air 01/12/17 15:07 37.0 60 20 138/78 (98) 94 Room Air 01/12/17 10:08 Room Air 01/12/17 07:49 36.8 61 18 134/76 (95) 95 Room Air 01/12/17 01:56 Room Air 01/11/17 23:54 36.9 60 16 148/79 (102) 95 Room Air Lab Results: Results Past 24 Hours Test 01/11/17 20:32 01/12/17 04:57 01/12/17 07:30 01/12/17 11:19 Range/Units Bedside Glucose 139 143 118 70-99 mg/dl White Blood Count 6.04 4.8-10.8 K/uL Red Blood Count 4.92 4.7-6.1 M/uL Hemoglobin 12.8 14.0-18.0 g/dL Hematocrit 39.3 42-52 % Mean Corpuscular Volume 79.9 80-100 fL Mean Corpuscular Hemoglobin 26.0 25-34 pg Mean Corpuscular Hemoglobin Concent 32.6 32-36 g/dl Platelet Count 200 130-400 K/uL Mean Platelet Volume 10.2 7.4-10.4 fL Neutrophils (%) (Auto) 67.9 % Lymphocytes (%) (Auto) 17.7 % Monocytes (%) (Auto) 10.9 % Eosinophils (%) (Auto) 2.6 % Basophils (%) (Auto) 0.2 % Neutrophils # (Auto) 4.10 1.4-6.5 K/uL Lymphocytes # (Auto) 1.07 1.2-3.4 K/uL Monocytes # (Auto) 0.66 0.11-0.59 K/uL Eosinophils # (Auto) 0.16 0-0.5 K/uL Basophils # (Auto) 0.01 0-0.2 K/uL RDW Standard Deviation 45.6 36.4-46.3 fL RDW Coefficient of Variation 15.6 11.5-14.5 % Immature Granulocyte % (Auto) 0.7 % Immature Granulocyte # (Auto) 0.04 0.00-0.02 K/uL Prothrombin Time 25.3 9.0-12.0 SECONDS Prothromb Time International Ratio 2.3 0.9-1.1 Activated Partial Thromboplast Time 72.8 21.0-31.0 SECONDS Partial Thromboplastin Ratio 2.8 Sodium Level 136 136-145 mmol/L Potassium Level 3.8 3.5-5.1 mmol/L Chloride Level 104 98-107 mmol/L Carbon Dioxide Level 28 21-32 mmol/L Anion Gap 4.0 3-11 mmol/L Blood Urea Nitrogen 15 7-18 mg/dl Creatinine 1.09 0.60-1.40 mg/dl Est Creatinine Clear Calc Drug Dose 94.7 ml/min Estimated GFR () 82.7 Estimated GFR (Non- 71.4 BUN/Creatinine Ratio 13.3 10-20 Random Glucose 145 70-99 mg/dl Calcium Level 8.3 8.5-10.1 mg/dl Magnesium Level 1.9 1.8-2.4 mg/dl Total Bilirubin 0.4 0.2-1 mg/dl Aspartate Amino Transf (AST/SGOT) 23 15-37 U/L Alanine Aminotransferase (ALT/SGPT) 26 12-78 U/L Alkaline Phosphatase 64 45-117 U/L Total Protein 6.6 6.4-8.2 gm/dl Albumin 2.2 3.4-5.0 gm/dl Globulin 4.4 2.5-4.0 gm/dl Albumin/Globulin Ratio 0.5 0.9-2 Test 01/12/17 16:02 Range/Units Bedside Glucose 113 70-99 mg/dl
[2017-01-12] MEDS: DOXYCYCLINE HYCLATE 100 MG CAP PO SCH (20:38)
[2017-01-12 23:03] VITALS: BP 134/80; PULSE 60; TEMP 36.8; O2SAT 96
[2017-01-13 05:02] LABS: BASO % 0.4 %; BASO ABS # 0.02 K/uL (0-0.2); COMPLETE YES; EOS % 2.8 %; HEMATOCRIT 41.9 % (42-52); IG% 0.5 %; MEAN CELL VOLUME 80.4 fL (80-100); MEAN CORPUSCULAR HEMOGLOBIN 26.7 pg (25-34); MEAN CORPUSCULAR HGB CONC 33.2 g/dl (32-36); MEAN PLATELET VOLUME 10.7 fL (7.4-10.4); MONO % 11.2 %; NEUT % 62.1 %; PLATELET COUNT 256 K/uL (130-400); RED BLOOD COUNT 5.21 M/uL (4.7-6.1); WHITE BLOOD COUNT 5.64 K/uL (4.8-10.8)
[2017-01-13 05:20] LABS: INR 3.5 (0.9-1.1); PARTIAL THROMBOPLASTIN RATIO 1.7
[2017-01-13 05:31] LABS: BUN/CREATININE RATIO 11.8 (10-20); CALCIUM 8.4 mg/dl (8.5-10.1); CREATININE 1.12 mg/dl (0.60-1.40); MAGNESIUM 1.9 mg/dl (1.8-2.4)
[2017-01-13 05:33] LABS: ALB/GLOB RATIO 0.5 (0.9-2)
[2017-01-13] MEDS ORDERED: NURSING VERBAL MED ORDER ONE ×2 (05:45→11:15)
[2017-01-13] MEDS: TRAMADOL HCL 50 MG TAB PO PRN ×2 (06:02→23:57)
[2017-01-13 07:29] VITALS: BP 149/82; PULSE 65; TEMP 37; O2SAT 98
[2017-01-13] MEDS: SENNA 8.6 MG TAB PO SCH (08:00)
[2017-01-13] MEDS: DOCUSATE SODIUM 100 MG CAP PO SCH ×2 (08:00→20:33)
[2017-01-13] MEDS: ASPIRIN 81 MG ECTAB PO SCH (08:14)
[2017-01-13] MEDS: HYDROCHLOROTHIAZIDE 25 MG TAB PO SCH (08:14)
[2017-01-13] MEDS: DOXYCYCLINE HYCLATE 100 MG CAP PO SCH ×2 (08:14→20:34)
[2017-01-13] MEDS: ATORVASTATIN 40 MG TAB PO SCH (08:14)
[2017-01-13] MEDS: CEPHALEXIN MONOHYDRATE 500 MG CAP PO SCH ×4 (08:14→20:33)
[2017-01-13] MEDS: INSULIN ASPART 100 UNITS/ML 3 ML PEN SC SCH ×4 (08:21→20:31)
[2017-01-13] MEDS ORDERED: FUROSEMIDE INJ 20 MG in SYRINGE 0 ML IV ONE (11:30)
[2017-01-13] MEDS ORDERED: FRS/40 PO (14:13)
[2017-01-13] MEDS ORDERED: HYDR25TA5 PO (14:13)
[2017-01-13 15:46] VITALS: BP 124/75; PULSE 64; TEMP 36.9; O2SAT 97
[2017-01-13 16:00] VITALS: O2SAT 97
[2017-01-13] MEDS ORDERED: WARFARIN TAB 2 MG, WARFARIN TAB 2.5 MG PO SCH ×2 (16:00)
--- NOTE | 2017-01-13 18:26 | Progress Note ---
Internal Med Progress Note Date of Service: Jan 13, 2017. Provider Documentation: SUBJECTIVE: awake and alert. denies pain. denies shortness of breath. blister forming around upper left leg that has not drained at this time. OBJECTIVE: Exam: General- no acute distress, breathing comfortably on room air Eyes- EOMI ENT- no epistaxis Neck- no JVD Lungs- CTABL, no wheezing, no crackles Heart- regular rate Abdomen- soft, nontender, + bowel sounds Extremities- lower extremity with chronic edema of lower extremities bilaterally with left leg greater then the right side and left leg with erythema from ankle to to below the knee Neuro-no focal neurological deficits ASSESSMENT & PLAN: Cellulitis, left lower extremity History of chronic venous insufficiency as per records, patient reports history of furosemide intermittently in the past at home Ultrasound of Left Lower extremity: No DVT. Borderline enlarged left inguinal lymph nodes demonstrate a normal fatty hilum and a thin cortex. These may be reactive. There is subcutaneous edema within the left leg Patient was started on Doxycycline IV and with history of group G beta strep cellulitis in the past, patient has also been on IV ceftriaxone for strep coverage, transitioned to oral doxycycline and oral Keflex on 01/12/17 Acute renal failure secondary to illness. Resolved. History of Exertional SOB, Reports that he used to be on intermittent Lasix at home in the past but no longer, give Lasix because of leg swelling No DVT on left lower extremity US on anticoagulation PT/OT Sick sinus syndrome sp PPM Coumadin. INR subtherapeutic secondary to missed doses of Coumadin 4.5 mg daily at home from history of nausea Was on IV heparin with bridge to Coumadin, currently Coumadin 6 mg daily and INR on 01/12/17 is 2.3, but then too high INR 3.5 on 01/13/17, changed warfarin to 4.5 mg and will trend INR Chronic anemia, hemoglobin at baseline. DM2, on oral meds Needs prescription for FreeStyle Lite test strips and Lancets to check 1x/day at discharge. CKD, trend GFR Past tobacco use / smoking cessation counseling ordered DVT PROPHYLAXIS coumadin with therapeutic INR Disposition: patient will have outpatient followup after hospital stay 01/20/2017 2:00 PM Jocelyne Desai DO Internal Medicine [facility] patient will need anticoagulation follow up Vital Signs: Date Time Temp Pulse Resp B/P (MAP) Pulse Ox O2 Delivery O2 Flow Rate FiO2 01/13/17 15:46 36.9 64 18 124/75 (91) 97 01/13/17 10:11 Room Air 01/13/17 07:29 37.0 65 18 149/82 (104) 98 01/13/17 00:00 Room Air 01/12/17 23:03 36.8 60 18 134/80 (98) 96 Room Air Lab Results: Results Past 24 Hours Test 01/12/17 20:16 01/13/17 04:49 01/13/17 07:41 01/13/17 11:42 Range/Units Bedside Glucose 160 121 133 70-99 mg/dl White Blood Count 5.64 4.8-10.8 K/uL Red Blood Count 5.21 4.7-6.1 M/uL Hemoglobin 13.9 14.0-18.0 g/dL Hematocrit 41.9 42-52 % Mean Corpuscular Volume 80.4 80-100 fL Mean Corpuscular Hemoglobin 26.7 25-34 pg Mean Corpuscular Hemoglobin Concent 33.2 32-36 g/dl Platelet Count 256 130-400 K/uL Mean Platelet Volume 10.7 7.4-10.4 fL Neutrophils (%) (Auto) 62.1 % Lymphocytes (%) (Auto) 23.0 % Monocytes (%) (Auto) 11.2 % Eosinophils (%) (Auto) 2.8 % Basophils (%) (Auto) 0.4 % Neutrophils # (Auto) 3.50 1.4-6.5 K/uL Lymphocytes # (Auto) 1.30 1.2-3.4 K/uL Monocytes # (Auto) 0.63 0.11-0.59 K/uL Eosinophils # (Auto) 0.16 0-0.5 K/uL Basophils # (Auto) 0.02 0-0.2 K/uL RDW Standard Deviation 46.3 36.4-46.3 fL RDW Coefficient of Variation 15.7 11.5-14.5 % Immature Granulocyte % (Auto) 0.5 % Immature Granulocyte # (Auto) 0.03 0.00-0.02 K/uL Prothrombin Time 39.0 9.0-12.0 SECONDS Prothromb Time International Ratio 3.5 0.9-1.1 Activated Partial Thromboplast Time 45.3 21.0-31.0 SECONDS Partial Thromboplastin Ratio 1.7 Sodium Level 135 136-145 mmol/L Potassium Level 4.0 3.5-5.1 mmol/L Chloride Level 102 98-107 mmol/L Carbon Dioxide Level 26 21-32 mmol/L Anion Gap 7.0 3-11 mmol/L Blood Urea Nitrogen 13 7-18 mg/dl Creatinine 1.12 0.60-1.40 mg/dl Est Creatinine Clear Calc Drug Dose 92.1 ml/min Estimated GFR () 80.0 Estimated GFR (Non- 69.0 BUN/Creatinine Ratio 11.8 10-20 Random Glucose 138 70-99 mg/dl Calcium Level 8.4 8.5-10.1 mg/dl Magnesium Level 1.9 1.8-2.4 mg/dl Total Bilirubin 0.5 0.2-1 mg/dl Aspartate Amino Transf (AST/SGOT) 28 15-37 U/L Alanine Aminotransferase (ALT/SGPT) 30 12-78 U/L Alkaline Phosphatase 71 45-117 U/L Total Protein 7.2 6.4-8.2 gm/dl Albumin 2.3 3.4-5.0 gm/dl Globulin 4.9 2.5-4.0 gm/dl Albumin/Globulin Ratio 0.5 0.9-2 Test 01/13/17 16:20 Range/Units Bedside Glucose 126 70-99 mg/dl
[2017-01-13] MEDS ORDERED: FUROSEMIDE 40 MG TAB PO ONE (18:30)
[2017-01-13 23:06] VITALS: BP 130/80; PULSE 57; TEMP 36.7; O2SAT 97
[2017-01-14] MEDS: CALCIUM CARBONATE 500 MG CHEWABLE PO PRN ×2 (00:12→07:56)
[2017-01-14 06:53] LABS: BASO % 0.2 %; BASO ABS # 0.01 K/uL (0-0.2); COMPLETE YES; EOS % 2.5 %; HEMATOCRIT 40.1 % (42-52); IG% 0.5 %; LYMPH % 26.8 %; MEAN CELL VOLUME 80.8 fL (80-100); MEAN CORPUSCULAR HEMOGLOBIN 26.6 pg (25-34); MEAN CORPUSCULAR HGB CONC 32.9 g/dl (32-36); MEAN PLATELET VOLUME 10.6 fL (7.4-10.4); MONO % 11.6 %; NEUT % 58.4 %; PLATELET COUNT 300 K/uL (130-400); RED BLOOD COUNT 4.96 M/uL (4.7-6.1); WHITE BLOOD COUNT 5.59 K/uL (4.8-10.8)
[2017-01-14 07:04] LABS: INR 4.4 (0.9-1.1); PROTHROMBIN TIME (PATIENT) 49.5 SECONDS (9.0-12.0)
[2017-01-14 07:25] LABS: BUN/CREATININE RATIO 14.2 (10-20); CALCIUM 8.5 mg/dl (8.5-10.1); CREATININE 1.16 mg/dl (0.60-1.40); POTASSIUM 3.8 mmol/L (3.5-5.1)
[2017-01-14 07:27] LABS: ALB/GLOB RATIO 0.5 (0.9-2)
[2017-01-14 07:53] VITALS: BP 143/76; PULSE 60; TEMP 36.5; O2SAT 96
[2017-01-14] MEDS: DOXYCYCLINE HYCLATE 100 MG CAP PO SCH (07:57)
[2017-01-14] MEDS: CEPHALEXIN MONOHYDRATE 500 MG CAP PO SCH ×2 (07:57→11:48)
[2017-01-14] MEDS: SENNA 8.6 MG TAB PO SCH (07:58)
[2017-01-14] MEDS: DOCUSATE SODIUM 100 MG CAP PO SCH (07:58)
[2017-01-14] MEDS: HYDROCHLOROTHIAZIDE 25 MG TAB PO SCH (07:58)
[2017-01-14] MEDS: ATORVASTATIN 40 MG TAB PO SCH (07:58)
[2017-01-14] MEDS: ASPIRIN 81 MG ECTAB PO SCH (07:58)
[2017-01-14] MEDS ORDERED: FUROSEMIDE 40 MG TAB PO SCH (08:00)
[2017-01-14 08:30] VITALS: O2SAT 96
[2017-01-14] MEDS: INSULIN ASPART 100 UNITS/ML 3 ML PEN SC SCH (09:00)
--- NOTE | 2017-01-14 11:04 | Progress Note ---
Internal Med Progress Note Date of Service: Jan 14, 2017. Provider Documentation: SUBJECTIVE: awake and alert. denies pain. denies shortness of breath. blister of left leg drained over left leg. Patient's INR 4.4. Patient denies blood in urine or stool. After hospital course was discussed, patient reports that he would like to go home to continue oral antibiotics at home and will follow up with INR labwork as outpatient OBJECTIVE: Exam: General- no acute distress, breathing comfortably on room air Eyes- EOMI ENT- no epistaxis Neck- no JVD Lungs- CTABL, no wheezing, no crackles Heart- regular rate Abdomen- soft, nontender, + bowel sounds Extremities- lower extremity with chronic edema of lower extremities bilaterally with left leg greater then the right side and left leg with erythema from ankle to to below the knee Neuro-no focal neurological deficits ASSESSMENT & PLAN: Cellulitis, left lower extremity (History of chronic venous insufficiency as per records, patient reports history of furosemide intermittently in the past at home) Ultrasound of Left Lower extremity: No DVT. Borderline enlarged left inguinal lymph nodes demonstrate a normal fatty hilum and a thin cortex. These may be reactive. There is subcutaneous edema within the left leg Patient to be discharged with Lasix for leg swelling Patient was started on 01/09/17 Doxycycline IV due to previous history of group G beta strep cellulitis in the past And on IV ceftriaxone for strep coverage, transitioned to oral doxycycline and oral Keflex on 01/12/17, patient continuing these oral antibiotics up to 01/20/17 when he will be re-evaluated by his primary care doctor HTN: Patient to be discharged with HCTZ for blood pressure control and leg swelling Acute kidney injury resolved but outpatient doctor should check kidney function while on diuretic medications Sick sinus syndrome sp PPM Coumadin. INR subtherapeutic secondary to missed doses of Coumadin 4.5 mg daily at home from history of nausea Was on IV heparin with bridge to Coumadin, was on Coumadin 6 mg daily and INR on 01/12/17 was 2.3, but then too high INR 3.5 on 01/13/17, changed Coumadin to 4.5 mg on 01/13/17, but INR still serotherapeutic 4.4 on 01/14/17. Anticipate that INR will still be somewhat elevated due to previous doses of 6 mg Coumadin. Patient to be discharged on original home dosed 4.5 mg Coumadin daily. Patient to follow up outpatient for INR blood work Chronic anemia, hemoglobin at baseline. Diabetes,on oral medications: Continue home medications and will be prescribed for FreeStyle Lite test strips and Lancets to check blood sugars once daily Past tobacco use / advised smoking cessation Disposition: patient will have outpatient followup after hospital stay 01/20/2017 2:00 PM Jocelyne Desai DO Internal Medicine [facility] patient will need anticoagulation follow up Vital Signs: Date Time Temp Pulse Resp B/P (MAP) Pulse Ox O2 Delivery O2 Flow Rate FiO2 01/14/17 08:30 96 Room Air 01/14/17 07:53 36.5 60 18 143/76 (98) 96 Room Air 01/14/17 00:30 Room Air 01/13/17 23:06 36.7 57 18 130/80 (97) 97 Room Air 01/13/17 16:00 97 Room Air 01/13/17 15:46 36.9 64 18 124/75 (91) 97 Lab Results: Results Past 24 Hours Test 01/13/17 11:42 01/13/17 16:20 01/13/17 20:30 01/14/17 06:02 Range/Units Bedside Glucose 133 126 127 70-99 mg/dl White Blood Count 5.59 4.8-10.8 K/uL Red Blood Count 4.96 4.7-6.1 M/uL Hemoglobin 13.2 14.0-18.0 g/dL Hematocrit 40.1 42-52 % Mean Corpuscular Volume 80.8 80-100 fL Mean Corpuscular Hemoglobin 26.6 25-34 pg Mean Corpuscular Hemoglobin Concent 32.9 32-36 g/dl Platelet Count 300 130-400 K/uL Mean Platelet Volume 10.6 7.4-10.4 fL Neutrophils (%) (Auto) 58.4 % Lymphocytes (%) (Auto) 26.8 % Monocytes (%) (Auto) 11.6 % Eosinophils (%) (Auto) 2.5 % Basophils (%) (Auto) 0.2 % Neutrophils # (Auto) 3.26 1.4-6.5 K/uL Lymphocytes # (Auto) 1.50 1.2-3.4 K/uL Monocytes # (Auto) 0.65 0.11-0.59 K/uL Eosinophils # (Auto) 0.14 0-0.5 K/uL Basophils # (Auto) 0.01 0-0.2 K/uL RDW Standard Deviation 46.1 36.4-46.3 fL RDW Coefficient of Variation 15.7 11.5-14.5 % Immature Granulocyte % (Auto) 0.5 % Immature Granulocyte # (Auto) 0.03 0.00-0.02 K/uL Prothrombin Time 49.5 9.0-12.0 SECONDS Prothromb Time International Ratio 4.4 0.9-1.1 Sodium Level 137 136-145 mmol/L Potassium Level 3.8 3.5-5.1 mmol/L Chloride Level 101 98-107 mmol/L Carbon Dioxide Level 30 21-32 mmol/L Anion Gap 7.0 3-11 mmol/L Blood Urea Nitrogen 17 7-18 mg/dl Creatinine 1.16 0.60-1.40 mg/dl Est Creatinine Clear Calc Drug Dose 89.0 ml/min Estimated GFR () 76.7 Estimated GFR (Non- 66.2 BUN/Creatinine Ratio 14.2 10-20 Random Glucose 118 70-99 mg/dl Calcium Level 8.5 8.5-10.1 mg/dl Total Bilirubin 0.5 0.2-1 mg/dl Aspartate Amino Transf (AST/SGOT) 26 15-37 U/L Alanine Aminotransferase (ALT/SGPT) 29 12-78 U/L Alkaline Phosphatase 64 45-117 U/L Total Protein 6.8 6.4-8.2 gm/dl Albumin 2.3 3.4-5.0 gm/dl Globulin 4.5 2.5-4.0 gm/dl Albumin/Globulin Ratio 0.5 0.9-2 Test 01/14/17 07:37 Range/Units Bedside Glucose 130 70-99 mg/dl Microbiology Results 01/13/17 Gram Stain - Final, Resulted 01/13/17 Wound Culture, Resulted Pending
[2017-01-14] MEDS ORDERED: KFL500 PO (11:07)
[2017-01-14] MEDS ORDERED: LSX40 PO (11:07)
[2017-01-14] MEDS ORDERED: DXY100 PO (11:07)
[2017-01-14] MEDS ORDERED: LANC-333 TOP (11:07)
[2017-01-14] MEDS ORDERED: BLOOMIS (11:12)
[2017-01-14 11:15] VITALS: BP 143/76; PULSE 60; TEMP 36.5; O2SAT 96
[2017-01-14] MEDS ORDERED: NURSING VERBAL MED ORDER ONE (11:15)
[2017-01-14] MEDS ORDERED: EUCERIN CR 120 GM JAR EXT PRN (11:15)
--- NOTE | 2017-01-14 11:17 | Discharge Summary ---
Discharge Summary Date of Service Jan 14, 2017. Discharge Summary Admission Date: Jan 08, 2017 at 20:21 Discharge Date: Jan 14, 2017 Discharge Disposition: Home Principal Diagnosis: Cellulitis, left lower extremity HTN Acute kidney injury resolved Sick sinus syndrome sp PPM Coumadin. Supratherapeutic INR Chronic anemia, hemoglobin at baseline. Diabetes,on oral medications Pending Studies/Follow-Up: wound culture Medication Reconciliation New Medications: Blood Glucose Monitoring Suppl (Freestyle Lite Blood Gluc) 1 [facility] Mis UNIT DIRECTED for to check glucose, #30 use 1 test strip daily Lancets (Freestyle Lancets) 1 Mis Mis EA TOP DAILY, #100 3 Refills Cephalexin Monohydrate (Cephalexin) 500 Mg Cap 500 MG PO QID for 6 Days, #24 CAP Doxycycline Hyclate (Doxycycline Hyclate) 100 Mg Cap 100 MG PO BID for 6 Days, #12 CAP Furosemide (Furosemide) 40 Mg Tab 40 MG PO QAM for 7 Days, #7 TAB Hydrochlorothiazide (Hydrochlorothiazide) 25 Mg Tab 25 MG PO DAILY for 30 Days, #30 TAB Continued Medications: Acetaminophen (Tylenol) 500 Mg Tab 1000 MG PO Q6 PRN for Pain, TAB Aspirin (Aspirin Ec) 81 Mg Tab 81 MG PO DAILY Atorvastatin (Lipitor) 40 Mg Tab 40 MG PO DAILY, TAB Calcium Citrate-Vitamin D (Calcium Citrate + D) 1 Tab Tab 2 TABLETS PO DAILY Cyanocobalamin (B-12) 1,000 Mcg Sub 1000 MCG INJ [id number] Furosemide (Lasix) 40 Mg Tab 40 MG PO DAILY PRN for SWELLING for 30 Days, #30 TAB (This prescription has been renewed) Metformin Hcl (Glucophage) 1,000 Mg Tab 1000 MG PO BID, TAB Methocarbamol (Robaxin) 750 Mg Tab 750 MG PO Q4 PRN for muscle spasms, TAB Pediatric Multiple Vitamins W/ (Flintstones Plus Iron) 1 Chw Chw 1 CHW PO DAILY Simethicone (Gas-X) 80 Mg Chw 80 MG PO PRN for gas Warfarin Sod (Jantoven) 3 Mg Tab 4.5 MG PO DAILY, TAB Admission Information HPI (per Admitting provider): CHIEF COMPLAINT: Left leg swelling. HISTORY OF PRESENT ILLNESS: Medical history is significant for sick sinus syndrome status post pacemaker placement on Coumadin, hypertension; PVD as per records, DM2 on oral medications, chronic anemia ( baseline hemoglobin of 13), past tobacco abuse. Recent confinement was October 2013 for sepsis secondary to left lower extremity cellulitis. CS grew group G beta strep. Few days' history of achy left leg swelling, poor appetite, unable to take his Coumadin due to illness. Some exertional shortness of breath, no chest pain. No fever. Some chills. No recollection off leg trauma. At the Emergency Room, the patient received Cefepime. MEDICAL HISTORY: As above. SURGERIES: Neck surgery, tonsillectomy, toe amputation and finger tendon transfer. HOME MEDICATIONS: Include; metformin, Robaxin, simethicone, Flintstones, Coumadin, aspirin, Tylenol, Lipitor, B12 and Lasix. ALLERGIES: No known drug allergies. FAMILY HISTORY: Heart disease and diabetes. PERSONAL AND SOCIAL HISTORY: Past tobacco use. No chronic intake of alcoholic beverages. home care from time to time. REVIEW OF SYSTEMS: As per HPI. All 10 systems were reviewed. All other ROS negative. Physical Exam (per Admitting): PHYSICAL EXAMINATION: VITAL SIGNS: Blood pressure was noted to be 150/80, pulse rate 60, RR 18, temp 36.6 and sats 98 on room air. GENERAL: Noted to be comfortable, in no respiratory distress. SKIN: Pallor. Warm. HEENT: Pale palpebral conjunctivae. No ptosis. Dry buccal mucosa. NECK: No JVD. Supple. No tenderness. CHEST: Clear to auscultation. No tenderness. HEART: irreg. No murmur. ABDOMEN: Soft and nontender. EXTREMITIES: Tender induration left lower extremity, venous stasis. NEUROLOGIC: Coherent. No gross focality. Hospital Course Cellulitis, left lower extremity (History of chronic venous insufficiency as per records, patient reports history of furosemide intermittently in the past at home) Ultrasound of Left Lower extremity: No DVT. Borderline enlarged left inguinal lymph nodes demonstrate a normal fatty hilum and a thin cortex. These may be reactive. There is subcutaneous edema within the left leg Patient to be discharged with Lasix for leg swelling Patient was started on 01/09/17 Doxycycline IV due to previous history of group G beta strep cellulitis in the past And on IV ceftriaxone for strep coverage, transitioned to oral doxycycline and oral Keflex on 01/12/17, patient continuing these oral antibiotics up to 01/20/17 when he will be re-evaluated by his primary care doctor HTN: Patient to be discharged with HCTZ for blood pressure control and leg swelling Acute kidney injury resolved but outpatient doctor should check kidney function while on diuretic medications Sick sinus syndrome sp PPM Coumadin. INR subtherapeutic secondary to missed doses of Coumadin 4.5 mg daily at home from history of nausea Was on IV heparin with bridge to Coumadin, was on Coumadin 6 mg daily and INR on 01/12/17 was 2.3, but then too high INR 3.5 on 01/13/17, changed Coumadin to 4.5 mg on 01/13/17, but INR still serotherapeutic 4.4 on 01/14/17. Anticipate that INR will still be somewhat elevated due to previous doses of 6 mg Coumadin. Patient to be discharged on original home dosed 4.5 mg Coumadin daily. Patient to follow up outpatient for INR blood work Chronic anemia, hemoglobin at baseline. Diabetes,on oral medications: Continue home medications and will be prescribed for FreeStyle Lite test strips and Lancets to check blood sugars once daily Past tobacco use / advised smoking cessation Disposition: patient will have outpatient followup after hospital stay 01/20/2017 2:00 PM Jocelyne Desai DO Internal Medicine [facility] patient will need anticoagulation follow up Total time spent on discharge = 60 minute This includes examination of the patient, discharge planning, medication reconciliation, and communication with other providers. Discharge Instructions Disposition: patient will have outpatient followup after hospital stay 01/20/2017 2:00 PM Jocelyne Desai DO Internal Medicine [facility] patient will need anticoagulation follow up Patient advised to return to emergency room if bleeding from rectum or urination due to elevated INR Patient to be discharged with Lasix for leg swelling Patient was started on 01/09/17 Doxycycline IV due to previous history of group G beta strep cellulitis in the past And on IV ceftriaxone for strep coverage, transitioned to oral doxycycline and oral Keflex on 01/12/17, patient continuing these oral antibiotics up to 01/20/17 when he will be re-evaluated by his primary care doctor HTN: Patient to be discharged with HCTZ for blood pressure control and leg swelling Diabetes,on oral medications: Continue home medications and will be prescribed for FreeStyle Lite test strips and Lancets to check blood sugars once daily
--- NOTE | 2017-01-14 11:18 | Discharge Instructions ---
Discharge Instructions Date of Service Jan 14, 2017. Admission Reason for Admission: Cellulitis Discharge Discharge Diagnosis / Problem: left lower extremity cellulitis, supratherapeutic INR, on coumadin, HTN, DM Discharge Goals Goal(s): Improve function, Improve disease control Activity Recommendations Activity Limitations: per Instructions/Follow-up section Lifting Limitations: until after follow-up appointment Exercise/Sports Limitations: until after follow-up appointment Driving or Machine Use: no limitations . Instructions / Follow-Up Instructions / Follow-Up Disposition: patient will have outpatient followup after hospital stay 01/20/2017 2:00 PM Jocelyne Desai, Internal Medicine [facility] patient will need anticoagulation follow up Patient advised to return to emergency room if bleeding from rectum or urination due to elevated INR Patient to be discharged with Lasix for leg swelling Patient was started on 01/09/17 Doxycycline IV due to previous history of group G beta strep cellulitis in the past And on IV ceftriaxone for strep coverage, transitioned to oral doxycycline and oral Keflex on 01/12/17, patient continuing these oral antibiotics up to 01/20/17 when he will be re-evaluated by his primary care doctor HTN: Patient to be discharged with HCTZ for blood pressure control and leg swelling Diabetes,on oral medications: Continue home medications and will be prescribed for FreeStyle Lite test strips and Lancets to check blood sugars once daily Current Hospital Diet Patient's current hospital diet: Diabetes Type 2 Diet, AHA Diet (Heart Healthy) Discharge Diet Recommended Diet: AHA Diet (Heart Healthy), Diabetes Type 2 Diet Pending Studies Studies pending at discharge: no List of pending studies: wound culture Laboratory Results 01/14/17 06:02 Red Blood Count 4.96, Mean Corpuscular Volume 80.8, Mean Corpuscular Hemoglobin 26.6, Mean Corpuscular Hemoglobin Concent 32.9, Mean Platelet Volume 10.6, Neutrophils (%) (Auto) 58.4, Lymphocytes (%) (Auto) 26.8, Monocytes (%) (Auto) 11.6, Eosinophils (%) (Auto) 2.5, Basophils (%) (Auto) 0.2, Neutrophils # (Auto ) 3.26, Lymphocytes # (Auto) 1.50, Monocytes # (Auto) 0.65, Eosinophils # (Auto ) 0.14, Basophils # (Auto) 0.01 01/14/17 06:02 Test 01/08/17 18:45 01/08/17 18:55 01/08/17 22:00 01/13/17 04:49 Direct Bilirubin 0.3 mg/dl (0-0.2) Pro-B-Type Natriuretic Peptide 3241 pg/ml (0-900) Lipase 150 U/L (73-393) Thyroid Stimulating Hormone (TSH) 4.250 uIu/ml (0.300-4.500) Hepatitis C Antibody Screen NEG (NEG) Bedside Lactic Acid Venous 1.90 mmol/L (0.90-1.70) Bedside Troponin I 0.030 ng/ml (0-0.045) Urine Color DK YELLOW Urine Appearance CLEAR (CLEAR) Urine pH 5.0 (4.5-7.5) Urine Specific [place] 1.029 (1.000-1.030) Urine Protein 4+ (NEG) Urine Glucose (UA) NEG (NEG) Urine Ketones TRACE (NEG) Urine Occult Blood 1+ (NEG) Urine Nitrite NEG (NEG) Urine Bilirubin NEG (NEG) Urine Urobilinogen POS (NEG) Urine Leukocyte Esterase TRACE (NEG) Urine WBC (Auto) 10-30 /hpf (0-5) Urine RBC (Auto) 0-4 /hpf (0-4) Urine Hyaline Casts (Auto) 1-5 /lpf (0-5) Urine Epithelial Cells (Auto) >30 /lpf (0-5) Urine Bacteria (Auto) 2+ (NEG) Urine Renal Epithelial Cells /lpf (0-5) Urine Pathogenic Casts 1-5 GRANULAR CASTS /lpf (0) Urine Yeast (Auto) (NONE PRSENT) Activated Partial Thromboplast Time 45.3 SECONDS (21.0-31.0) Partial Thromboplastin Ratio 1.7 Magnesium Level 1.9 mg/dl (1.8-2.4) Test 01/14/17 06:02 01/14/17 07:37 White Blood Count 5.59 K/uL (4.8-10.8) Red Blood Count 4.96 M/uL (4.7-6.1) Hemoglobin 13.2 g/dL (14.0-18.0) Hematocrit 40.1 % (42-52) Mean Corpuscular Volume 80.8 fL (80-100) Mean Corpuscular Hemoglobin 26.6 pg (25-34) Mean Corpuscular Hemoglobin Concent 32.9 g/dl (32-36) Platelet Count 300 K/uL (130-400) Mean Platelet Volume 10.6 fL (7.4-10.4) Neutrophils (%) (Auto) 58.4 % Lymphocytes (%) (Auto) 26.8 % Monocytes (%) (Auto) 11.6 % Eosinophils (%) (Auto) 2.5 % Basophils (%) (Auto) 0.2 % Neutrophils # (Auto) 3.26 K/uL (1.4-6.5) Lymphocytes # (Auto) 1.50 K/uL (1.2-3.4) Monocytes # (Auto) 0.65 K/uL (0.11-0.59) Eosinophils # (Auto) 0.14 K/uL (0-0.5) Basophils # (Auto) 0.01 K/uL (0-0.2) RDW Standard Deviation 46.1 fL (36.4-46.3) RDW Coefficient of Variation 15.7 % (11.5-14.5) Immature Granulocyte % (Auto) 0.5 % Immature Granulocyte # (Auto) 0.03 K/uL (0.00-0.02) Prothrombin Time 49.5 SECONDS (9.0-12.0) Prothromb Time International Ratio 4.4 (0.9-1.1) Anion Gap 7.0 mmol/L (3-11) Est Creatinine Clear Calc Drug Dose 89.0 ml/min Estimated GFR () 76.7 Estimated GFR (Non- 66.2 BUN/Creatinine Ratio 14.2 (10-20) Calcium Level 8.5 mg/dl (8.5-10.1) Total Bilirubin 0.5 mg/dl (0.2-1) Aspartate Amino Transf (AST/SGOT) 26 U/L (15-37) Alanine Aminotransferase (ALT/SGPT) 29 U/L (12-78) Alkaline Phosphatase 64 U/L (45-117) Total Protein 6.8 gm/dl (6.4-8.2) Albumin 2.3 gm/dl (3.4-5.0) Globulin 4.5 gm/dl (2.5-4.0) Albumin/Globulin Ratio 0.5 (0.9-2) Bedside Glucose 130 mg/dl (70-99) Date/Time Source Procedure Growth Status 01/08/17 19:09 Blood Blood Culture - Final NO GROWTH Complete 01/08/17 22:00 Urine , Clean Catch Urine Culture - Final THREE TYPES OF ORGANISMS PRESENT, ALL... Complete 01/13/17 20:10 Skin Leg Lower Left Gram Stain - Final Resulted 01/13/17 20:10 Skin Leg Lower Left Wound Culture Pending Resulted Medical Emergencies . Who to Call and When: Medical Emergencies: If at any time you feel your situation is an emergency, please call 911 immediately. . Non-Emergent Contact Non-Emergency issues call your: Primary Care Provider Call Non-Emergent contact if: you have a fever, your pain is unusual for you, you have any medication questions . . "Provider Documentation" section prepared by Joseph Augustine. . VTE Core Measure Inpt VTE Proph given/why not?: Warfarin (Coumadin)
[2017-01-14] MEDS ORDERED: WARFARIN SOD 3 MG TAB PO SCH (16:00)
== END 2017-01-14 13:15 | disposition home or self-care (01) | DRG 603 ==
LOC: C.EDB 17:59 → C.4E 20:21 → ENRESERV 20:26
PROVIDERS: ADMIT Internal Medicine; ATTEND Hospitalist
DX: L03.116 Cellulitis of left lower limb (principal); I13.0 Hypertensive heart and chronic kidney disease with heart failure and stage 1 through stage 4 chronic kidney disease, or unspecified chronic kidney disease; N17.9 Acute kidney failure, unspecified; I48.91 Unspecified atrial fibrillation; I50.9 Heart failure, unspecified; E11.22 Type 2 diabetes mellitus with diabetic chronic kidney disease; E11.40 Type 2 diabetes mellitus with diabetic neuropathy, unspecified; I49.5 Sick sinus syndrome; N18.3 Chronic kidney disease, stage 3 (moderate); I87.2 Venous insufficiency (chronic) (peripheral); Z79.01 Long term (current) use of anticoagulants; Z79.82 Long term (current) use of aspirin; Z79.84 Long term (current) use of oral hypoglycemic drugs; Z79.899 Other long term (current) drug therapy; Z87.891 Personal history of nicotine dependence; Z95.0 Presence of cardiac pacemaker; Z98.84 Bariatric surgery status

== ENCOUNTER 2019-05-06 11:34 | Inpatient (IN) ==
[2019-05-06] MEDS ORDERED: SODIUM CHLORIDE 0.9% 500 ML IV ONE (11:57)
[2019-05-06 12:03] LABS: Basophils # (auto) 0.01 K/uL (0-0.2); Basophils % (auto) 0.1 %; Hematocrit (blood only) 41.3 % (42-52); Hemoglobin 13.2 g/dL (14.0-18.0); Immature Granulocytes # (auto) 0.01 K/uL (0.00-0.02); Immature Granulocytes % (auto) 0.1 %; Lymphocytes # (auto) 0.47 K/uL (1.2-3.4); Lymphocytes % (auto) 4.2 %; Mean Corpuscular Hemoglobin 26.1 pg (25-34); Mean Corpuscular Volume 81.6 fL (80-100); Mean Platelet Volume 11.1 fL (7.4-10.4); Monocytes % (auto) 4.5 %; Neutrophils # (auto) 10.16 K/uL (1.4-6.5); Neutrophils % (auto) 91.1 %; Platelet Count 165 K/uL (130-400); RDW Coefficient of Variation 18.6 % (11.5-14.5); RDW Standard Deviation 55.7 fL (36.4-46.3); Red Blood Count 5.06 M/uL (4.7-6.1); White Blood Count 11.15 K/uL (4.8-10.8)
[2019-05-06 12:18] LABS: Alanine Aminotransferase 30 U/L (12-78); Albumin Level 3.3 gm/dl (3.4-5.0); Aspartate Aminotransferase 37 U/L (15-37); BUN Creatinine Ratio 19.2 (10-20); Blood Urea Nitrogen 40 mg/dl (7-18); Calcium 8.7 mg/dl (8.5-10.1); Carbon Dioxide 22 mmol/L (21-32); Chloride 110 mmol/L (98-107); Creatinine Clr Calc Pharmacy 46.8 ml/min; Est GFR (African American) 37.3; Est GFR (Non-African American) 32.2; Glucose 178 mg/dl (70-99); Lipase 82 U/L (73-393); Magnesium 1.5 mg/dl (1.8-2.4); Potassium 3.7 mmol/L (3.5-5.1); Sodium 142 mmol/L (136-145)
[2019-05-06 12:38] LABS: INR 4.4 (0.9-1.1); Partial Thromboplastin Ratio 1.5; Partial Thromboplastin Time 42.9 Seconds (21.0-31.0); Prothrombin Time 42.4 Seconds (9.0-12.0)
--- NOTE | 2019-05-06 12:38 | XRay Report ---
XR chest 1V portable HISTORY: Atypical Chest Pain COMPARISON: Chest 01/20/2018. FINDINGS: No pneumothorax. No pleural effusions. The lungs are clear. The heart remains mildly enlarg ed. Is left-sided single lead pacemaker. No evidence for pulmonary edema. Cervical spinal fusion hard angel is partially visualized. IMPRESSION: No significant change compared to the prior study. No acute process. Stable cardiomegaly. ACT 112: Negative or not required by law. Electronically signed by: Josafat Hein M.D. 05/06/2019 12:37 PM
[2019-05-06 12:45] LABS: Albumin Globulin Ratio 0.9 (0.9-2); Alkaline Phosphatase 66 U/L (45-117); Bilirubin,Total 0.7 mg/dl (0.2-1); Globulin 3.7 gm/dl (2.5-4.0); Phosphorus 1.2 mg/dl (2.5-4.9); Troponin I < 0.015 ng/ml (0-0.045)
--- NOTE | 2019-05-06 13:02 | CT Scan Report ---
CT head/brain wo con CLINICAL HISTORY: 68 years-old Male with near syncope, fall, on coumadin. Acute head injury status p ost fall TECHNIQUE: Multiple axial CT images of the head were obtained without contrast. A dose lowering tech nique was utilized adhering to the principles of ALARA. CT DOSE: 614.27 mGy.cm COMPARISON: Head CT 01/20/2018. FINDINGS: No acute intracranial hemorrhage, midline shift, intracranial mass, hydrocephalus, territorial ischem ia or abnormal extra-axial collection. Mild age-related involutional changes. There is a new area of encephalomalacia within the left parietal lobe suggestive of remote infarct. Study is mildly motion d egraded. The calvarium is intact. The paranasal sinuses, mastoid air cells, and middle ear cavities are clear . IMPRESSION: 1. No acute intracranial abnormality or calvarial fracture. 2. 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 ACT 112: Negative or not required by law. The above report was generated using voice recognition software. It may contain grammatical, syntax o r spelling errors. Electronically signed by: Koko Lloyd M.D. 05/06/2019 1:00 PM
[2019-05-06 13:15] LABS: Influenza A virus by PCR Neg for Influ A (Neg); Influenza B virus by PCR Neg for Influ B (Neg)
[2019-05-06] MEDS ORDERED: POTASSIUM PHOS 3 MMOL/1 ML INFUSION IV STA ×2 (14:00→18:10)
[2019-05-06] MEDS: MAGNESIUM SULFATE / D5W 1 GM/100 ML BAG IV SCH ×2 (14:05→15:11)
[2019-05-06] MEDS ORDERED: POTASSIUM PHOSPHATE 6 MMOL in SODIUM CHLORIDE 0.9% 250 ML IV ONE (14:30)
[2019-05-06 15:02] LABS: Appearance Urine Cloudy (Clear); Bilirubin Urine Negative (Negative); Blood Urine 1+ (Negative); Color Urine Yellow; Glucose Urine UA Negative (Negative); Ketones Urine Negative (Negative); Leukocyte Esterase Urine 3+ (Negative); Nitrite Urine Positive (Negative); Urobilinogen Urine Negative (Negative); pH Urine >= 9.0 (4.5-7.5)
[2019-05-06 15:19] LABS: Protein Urine 2+ (Negative); Sulfosalicylic Acid Urine Positive (Negative)
[2019-05-06 15:22] LABS: Epithelial Cell Urine >30 /lpf (0-5); WBC Urine >30 /hpf (0-5)
[2019-05-06 15:23] LABS: Bacteria Urine 2+ (Negative)
[2019-05-06 15:24] LABS: Amorphous Sediment Urine Present (None Prsent)
[2019-05-06] MEDS ORDERED: VANCOMYCIN CONSULT ACTIVE PRN (15:28)
[2019-05-06] MEDS ORDERED: cefTRIAXone SODIUM 2,000 MG/70 ML BAG IV STA (15:28)
[2019-05-06] MEDS ORDERED: VANCOMYCIN HCL 2,500 MG in SODIUM CHLORIDE 0.9% 500 ML IV ONE (15:28)
--- NOTE | 2019-05-06 16:29 | Electrocardiogram Report ---
Test Reason : Blood Pressure : / mmHG Vent. Rate : 068 BPM Atrial Rate : 056 BPM P-R Int : 000 ms QRS Dur : 202 ms QT Int : 524 ms P-R-T Axes : 000 -82 100 degrees QTc Int : 557 ms Ventricular-paced rhythm with occasional Premature ventricular complexes Abnormal ECG When compared with ECG of 20-JAN-2018 07:56, Premature ventricular complexes are now Present Vent. rate has increased BY 3 BPM Confirmed by Jhonatan Olivera ([id number]) on 05/06/2019 4:28:45 PM Referred By: Confirmed By:Jason Olivera
--- NOTE | 2019-05-06 16:45 | Emergency Department Note ---
ED Provider Note NAME: RANI CHRISTIAN AGE: 68 SEX: M ARRIVES VIA: Ambulance INFORMANT: Patient, ED PROVIDER(S): Frank Murray MD CHIEF COMPLAINT: Near syncope MEDICAL DECISION MAKING: The patient is a pleasant 68-year-old gentleman with a past medical history of A. fib on Coumadin, history of cellulitis, hypertension, hyperlipidemia, NIDDM 2 who presents emergency department with near syncopal episode with generalized weakness with nausea, vomiting and diarrhea over the past 48 hours as well as report of increased pain and redness of his left lower extremity that makes him suspect possibly recurrence of his history of cellulitis. On arrival the patient is uncomfortable appearing but no acute distress, afebrile with stable vital signs. The patient appears clinically dry. He does have 1+ bilateral lower extremity edema with mild erythema warmth and tenderness of the left lower leg. EKG demonstrates V paced rhythm with PVCs. No overt acute ischemia. Chest x-ray negative for acute process. WBC 11, nonspecific. H/H 13.2/41.3 similar to prior values. Platelets within normal limits. INR supratherapeutic at 4.4. Creatinine 2, within prior range of values in setting of CKD. Phosphorus 1.2 and magnesium 1.5 with repletion provided. Troponin negative/undetectable. UA is dirty with epithelial cells but with WBCs and 2+ bacteria. On reevaluation patient was feel improved after IV fluid hydration and electrolyte repletion. However his history of cellulitis with diabetic heel ulcer reasonable admit the patient for further management. Case was discussed with My Levy, [facility], who evaluate the patient for admission. Triage Nursing notes reviewed and agree them. Prior medical records reviewed Vital Signs: reviewed and remarkable for no significant abnormalities Differential diagnosis: Vasovagal event, dehydration, infection, hypoglycemia, electrolyte abnormalities, cardiac sources, intracerebral event, pulmonary embolism, seizure, toxicologic, neurologic, as well as other pathologies. ER treatment provided: See below Diagnostics interpreted by me: ECG: Ventricular paced rhythm with occasional PVCs, 68 bpm, no overt acute ischemia. QTc 557 Cardiac Monitoring: V paced, occasional PVCs, 68 bpm. Laboratory studies: See below Imaging studies: XR chest 1V portable HISTORY: Atypical Chest Pain COMPARISON: Chest 01/20/2018. FINDINGS: No pneumothorax. No pleural effusions. The lungs are clear. The heart remains mildly enlarged. Is left-sided single lead pacemaker. No evidence for pulmonary edema. Cervical spinal fusion hardware is partially visualized. IMPRESSION: No significant change compared to the prior study. No acute process. Stable cardiomegaly. -- CT head/brain wo con CLINICAL HISTORY: 68 years-old Male with near syncope, fall, on coumadin. Acute head injury status post fall TECHNIQUE: Multiple axial CT images of the head were obtained without contrast. A dose lowering technique was utilized adhering to the principles of ALARA. CT DOSE: 614.27 mGy.cm COMPARISON: Head CT 01/20/2018. FINDINGS: No acute intracranial hemorrhage, midline shift, intracranial mass, hydrocephalus, territorial ischemia or abnormal extra-axial collection. Mild age-related involutional changes. There is a new area of encephalomalacia within the left parietal lobe suggestive of remote infarct. Study is mildly motion degraded. The calvarium is intact. The paranasal sinuses, mastoid air cells, and middle ear cavities are clear. IMPRESSION: 1. No acute intracranial abnormality or calvarial fracture. 2. 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 Consultation(s): None HPI: The patient is a pleasant 68-year-old gentleman with a past medical history of A. fib on Coumadin, history of cellulitis, hypertension, hyperlipidemia, NIDDM 2 who presents emergency department with near syncopal episode with generalized weakness with nausea, vomiting and diarrhea over the past 48 hours as well as report of increased pain and redness of his left lower extremity that makes him suspect possibly recurrence of his history of cellulitis. Denies objective fevers. Denies cough or congestion. Denies travel to high risk areas or contact with anyone diagnosed with now coronavirus. ROS: See above HPI for pertinent positives & negatives. A total of 10 systems reviewed and were otherwise negative. PAST MEDICAL HISTORY:See Below PAST SURGICAL HISTORY:See Below FAMILY HISTORY:See Below SOCIAL HISTORY:See Below HOME MEDICATIONS:See Below ALLERGIES:See Below VITALS:See Below PHYSICAL EXAMINATION: GENERAL: Awake, alert, fatigued-appearing, in no distress HENT: Normocephalic, atraumatic. Oropharynx with dry mucous membranes and otherwise unremarkable. EYES: Normal conjunctiva. Sclera non-icteric. EOMI. No nystamgus. PEARRL. NECK: Supple. No nuchal rigidity. FROM. No JVD. RESPIRATORY: Clear to auscultation. CARDIAC: Regular rate, normal rhythm. Extremities warm and well perfused. Pulses equal. ABDOMEN: Soft, non-distended. No tenderness to palpation. No rebound or guarding. No masses. RECTAL: Deferred. MUSCULOSKELETAL: Chest examination reveals no tenderness. The back is symmetrical on inspection without obvious abnormality. There is no CVA tenderness to palpation. No joint edema. LOWER EXTREMITIES: Calves are equal size bilaterally and non-tender. No edema. No discoloration. NEURO: Normal sensorium. No sensory or motor deficits noted. 5/5 strength and SILT x 4 extremities. SKIN: No rash or jaundice noted. Frank Murray MD Impression & Plan Cellulitis, Dehydration, Acute UTI, Near syncope, Chronic heel ulcer Past Med/Surg History Medical History A-fib (Acute) CHF (congestive heart failure) (Chronic) Chronic anemia CKD (chronic kidney disease), stage III CVA (cerebral vascular accident) 01/2018; residual right sided weakness Degenerative disc disease (Chronic) Depression (Chronic) Diabetes mellitus, type II Dyslipidemia Hypertension (Chronic) Mixed sleep apnea Pacemaker (Chronic) Tachy-geronimo syndrome Surgical History Gastric bypass status for obesity Family History Other Cancer Diabetes Hypertension Social History Preferred Language: [place] 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 Ability: Effective 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 Beliefs That Will Affect Care: None Current Living Situation: Alone and Family Current Living Situation Comment: family live upstairs Other Information That Helps Us Care for You: No Feels Safe at Home: Yes Safety Concerns: Feels Safe At This Time Smoking Status: Never smoker Second Hand Exposure: No ; Hx Alcohol Use: Yes Alcohol Intake Frequency: Holidays/Special Occasions Hx Substance Use: No Results & Data (ED) Vital Signs Vital Signs - 24 hr 05/06/19 11:46 05/06/19 11:58 05/06/19 13:14 Temperature 36.9 C Temperature Source Oral Pulse Rate 79 Pulse Rate [Apical] 86 Respiratory Rate 18 22 Blood Pressure 123/61 Blood Pressure [Left Arm] 109/54 L Blood Pressure Mean 81 Blood Pressure Mean [Left Arm] 72 Pulse Oximetry 97 96 Oxygen Delivery Method Room Air Room Air Sepsis Recent Fever Within 48 Hours No Sepsis New/Unexplained Change in Mental Status No Sepsis Action Taken by Nursing No Action Required 05/06/19 15:00 Temperature Temperature Source Pulse Rate Pulse Rate [Apical] 66 Respiratory Rate 20 Blood Pressure Blood Pressure [Left Arm] 114/60 Blood Pressure Mean Blood Pressure Mean [Left Arm] 78 Pulse Oximetry 96 Oxygen Delivery Method Room Air Sepsis Recent Fever Within 48 Hours Sepsis New/Unexplained Change in Mental Status Sepsis Action Taken by Nursing Laboratory Data Attestation: I reviewed the patient's lab results. Result diagrams: 05/06/19 11:40 05/06/19 11:40 Lab Results 05/06/19 05/06/19 05/06/19 Range/Units 11:40 11:40 11:40 WBC 11.15 H (4.8-10.8) K/uL RBC 5.06 (4.7-6.1) M/uL Hgb 13.2 L (14.0-18.0) g/dL Hct 41.3 L (42-52) % MCV 81.6 (80-100) fL MCH 26.1 (25-34) pg MCHC 32.0 (32-36) g/dL RDW Std Deviation 55.7 H (36.4-46.3) fL RDW Coeff of Jason 18.6 H (11.5-14.5) % Plt Count 165 (130-400) K/uL MPV 11.1 H (7.4-10.4) fL Immature Gran % (Auto) 0.1 % Neut % (Auto) 91.1 % Lymph % (Auto) 4.2 % [place] % (Auto) 4.5 % Eos % (Auto) 0.0 % Baso % (Auto) 0.1 % Immature Gran # (Auto) 0.01 (0.00-0.02) K/uL Neut # (Auto) 10.16 H (1.4-6.5) K/uL Lymph # (Auto) 0.47 L (1.2-3.4) K/uL [place] # (Auto) 0.50 (0.11-0.59) K/uL Eos # (Auto) 0.00 (0-0.5) K/uL Baso # (Auto) 0.01 (0-0.2) K/uL PT 42.4 H (9.0-12.0) Seconds INR 4.4 H (0.9-1.1) APTT 42.9 H (21.0-31.0) Seconds PTT Ratio 1.5 Sodium 142 (136-145) mmol/L Potassium 3.7 (3.5-5.1) mmol/L Chloride 110 H (98-107) mmol/L Carbon Dioxide 22 (21-32) mmol/L Anion Gap 9.0 (3-11) BUN 40 H (7-18) mg/dl Creatinine 2.08 H (0.6-1.4) mg/dl Est Cr Clr Drug Dosing 46.8 ml/min Est GFR ( Amer) 37.3 Est GFR (Non-Af Amer) 32.2 BUN/Creatinine Ratio 19.2 (10-20) Glucose 178 H (70-99) mg/dl Lactate (0.4-2.0) mmol/L Calcium 8.7 (8.5-10.1) mg/dl Phosphorus 1.2 L* (2.5-4.9) mg/dl Magnesium 1.5 L (1.8-2.4) mg/dl Total Bilirubin 0.7 (0.2-1) mg/dl AST 37 (15-37) U/L ALT 30 (12-78) U/L Alkaline Phosphatase 66 (45-117) U/L Troponin I < 0.015 (0-0.045) ng/ml Total Protein 7.0 (6.4-8.2) gm/dl Albumin 3.3 L (3.4-5.0) gm/dl Globulin 3.7 (2.5-4.0) gm/dl Albumin/Globulin Ratio 0.9 (0.9-2) Lipase 82 (73-393) U/L Urine Color Urine Appearance (Clear) Urine pH (4.5-7.5) Ur Specific [place] (1.000-1.030) Urine Protein (Negative) Urine Glucose (UA) (Negative) Urine Ketones (Negative) Urine Blood (Negative) Urine Nitrite (Negative) Urine Bilirubin (Negative) Urine Urobilinogen (Negative) Ur Leukocyte Esterase (Negative) Urine RBC (0-4) /hpf Urine WBC (0-5) /hpf Ur Epithelial Cells (0-5) /lpf Amorphous Sediment (None Prsent) Urine Bacteria (Negative) Influenza Type A (PCR) (Neg) Influenza Type B (PCR) (Neg) 05/06/19 05/06/19 05/06/19 Range/Units 12:30 14:20 15:50 WBC (4.8-10.8) K/uL RBC (4.7-6.1) M/uL Hgb (14.0-18.0) g/dL Hct (42-52) % MCV (80-100) fL MCH (25-34) pg MCHC (32-36) g/dL RDW Std Deviation (36.4-46.3) fL RDW Coeff of Jason (11.5-14.5) % Plt Count (130-400) K/uL MPV (7.4-10.4) fL Immature Gran % (Auto) % Neut % (Auto) % Lymph % (Auto) % [place] % (Auto) % Eos % (Auto) % Baso % (Auto) % Immature Gran # (Auto) (0.00-0.02) K/uL Neut # (Auto) (1.4-6.5) K/uL Lymph # (Auto) (1.2-3.4) K/uL [place] # (Auto) (0.11-0.59) K/uL Eos # (Auto) (0-0.5) K/uL Baso # (Auto) (0-0.2) K/uL PT (9.0-12.0) Seconds INR (0.9-1.1) APTT (21.0-31.0) Seconds PTT Ratio Sodium (136-145) mmol/L Potassium (3.5-5.1) mmol/L Chloride (98-107) mmol/L Carbon Dioxide (21-32) mmol/L Anion Gap (3-11) BUN (7-18) mg/dl Creatinine (0.6-1.4) mg/dl Est Cr Clr Drug Dosing ml/min Est GFR ( Amer) Est GFR (Non-Af Amer) BUN/Creatinine Ratio (10-20) Glucose (70-99) mg/dl Lactate 3.7 H* (0.4-2.0) mmol/L Calcium (8.5-10.1) mg/dl Phosphorus (2.5-4.9) mg/dl Magnesium (1.8-2.4) mg/dl Total Bilirubin (0.2-1) mg/dl AST (15-37) U/L ALT (12-78) U/L Alkaline Phosphatase (45-117) U/L Troponin I (0-0.045) ng/ml Total Protein (6.4-8.2) gm/dl Albumin (3.4-5.0) gm/dl Globulin (2.5-4.0) gm/dl Albumin/Globulin Ratio (0.9-2) Lipase (73-393) U/L Urine Color Yellow Urine Appearance Cloudy A (Clear) Urine pH >= 9.0 H (4.5-7.5) Ur Specific [place] 1.010 (1.000-1.030) Urine Protein 2+ H (Negative) Urine Glucose (UA) Negative (Negative) Urine Ketones Negative (Negative) Urine Blood 1+ H (Negative) Urine Nitrite Positive A (Negative) Urine Bilirubin Negative (Negative) Urine Urobilinogen Negative (Negative) Ur Leukocyte Esterase 3+ H (Negative) Urine RBC 5-10 H (0-4) /hpf Urine WBC >30 H (0-5) /hpf Ur Epithelial Cells >30 H (0-5) /lpf Amorphous Sediment Present A (None Prsent) Urine Bacteria 2+ H (Negative) Influenza Type A (PCR) Neg for Influ A (Neg) Influenza Type B (PCR) Neg for Influ B (Neg) Administered Medications Aspirin (Ecotrin Ectab) 81 mg PO PM COOKIE Stop: 06/05/19 20:59 Last Admin: 05/06/19 19:33 Dose: 81 mg Documented by: [id number] Cyanocobalamin (Vitamin B-12) 1,000 mcg PO PM COOKIE Stop: 06/05/19 20:59 Last Admin: 05/06/19 19:33 Dose: 1,000 mcg Documented by: [id number] Sodium Chloride (Nss 1000ml) 1,000 mls @ 125 mls/hr IV .Q8H COOKIE Stop: 05/07/19 10:09 Last Admin: 05/06/19 20:30 Dose: 125 mls/hr Documented by: [id number] Daptomycin 400 mg/ Syringe 8 mls @ 0 mls/min IV Q24H [facility]; Protocol Stop: 05/13/19 18:29 Last Admin: 05/06/19 18:58 Dose: 8 mls/min Documented by: [id number] Sodium Chloride (Nss 1000ml) 1,000 mls @ 250 mls/hr IV .Q4H C[facility]IE Stop: 05/06/19 23:14 Last Admin: 05/06/19 21:43 Dose: 250 mls/hr Documented by: [id number] Insulin Aspart (Novolog Flexpen) 0 units SC ACHS COOKIE Stop: 06/05/19 20:59 Last Admin: 05/06/19 20:33 Dose: 1 units Documented by: [id number] Cosigned by: [id number] Multivitamins/Folic Acid/Vitamin C (Flintstones Complete Chew Tab) 1 tab PO PM COOKIE Stop: 06/05/19 20:59 Last Admin: 05/06/19 19:33 Dose: 1 tab Documented by: [id number] Tamsulosin HCl (Flomax) 0.4 mg PO PM COOKIE Stop: 06/05/19 20:59 Last Admin: 05/06/19 19:33 Dose: 0.4 mg Documented by: [id number] Vitamin D (Vitamin D3) 1,000 units PO PM COOKIE Stop: 06/05/19 20:59 Last Admin: 05/06/19 19:33 Dose: 1,000 units Documented by: [id number] Discontinued Medications Sodium Chloride (Nss) 500 mls @ 999 mls/hr IV .Q31M ONE Stop: 05/06/19 12:27 Last Infusion: 05/06/19 12:38 Dose: 0 mls/hr Documented by: [id number] Admin: 05/06/19 12:06 Dose: 999 mls/hr Documented by: [id number] Magnesium Sulfate/Dextrose (Magnesium Sulfate / D5w) 1 gm in 100 mls @ 100 mls/hr IV Q1H [facility]IE Stop: 05/06/19 15:59 Last Infusion: 05/06/19 16:12 Dose: 0 mls/hr Documented by: [id number] Admin: 05/06/19 15:11 Dose: 100 mls/hr Documented by: [id number] Infusion: 05/06/19 15:05 Dose: 100 mls/hr Documented by: [id number] Admin: 05/06/19 14:05 Dose: 100 mls/hr Documented by: [id number] Potassium Phosphate 6 mmol/ (Sodium Chloride) 252 mls @ 88 mls/hr IV TODAY@1430 ONE Stop: 05/06/19 17:21 Last Infusion: 05/06/19 17:18 Dose: 0 mls/hr Documented by: [id number] Admin: 05/06/19 14:25 Dose: 88 mls/hr Documented by: [id number] Ceftriaxone Sodium (Rocephin) 2,000 mg in 70 mls @ 140 mls/hr IV NOW STA Stop: 05/06/19 15:57 Last Infusion: 05/06/19 16:38 Dose: 0 mls/hr Documented by: [id number] Admin: 05/06/19 16:06 Dose: 140 mls/hr Documented by: [id number] Vancomycin HCl 2,500 mg/ (Sodium Chloride) 550 mls @ 200 mls/hr IV NOW ONE Stop: 05/06/19 18:12 Last Infusion: 05/06/19 21:12 Dose: 0 mls/hr Documented by: [id number] Infusion: 05/06/19 18:59 Dose: 200 mls/hr Documented by: [id number] Infusion: 05/06/19 18:39 Dose: 0 mls/hr Documented by: [id number] Admin: 05/06/19 16:48 Dose: 200 mls/hr Documented by: [id number] Sodium Chloride (Nss 1000ml) 500 mls @ 999 mls/hr IV .Q31M ONE Stop: 05/06/19 17:23 Last Admin: 05/06/19 18:39 Dose: Not Given Documented by: [id number] Sodium Chloride (Nss 1000ml) 500 mls @ 999 mls/hr IV .Q31M ONE Stop: 05/06/19 18:40 Last Infusion: 05/06/19 20:39 Dose: 0 mls/hr Documented by: [id number] Admin: 05/06/19 19:30 Dose: 999 mls/hr Documented by: [id number] Potassium Phosphate 15 mmol/ (Sodium Chloride) 255 mls @ 88 mls/hr IV ONE ONE Stop: 05/06/19 21:08 Last Infusion: 05/06/19 22:32 Dose: 0 mls/hr Documented by: [id number] Admin: 05/06/19 19:30 Dose: 88 mls/hr Documented by: [id number] Piperacillin Sod/Tazobactam (Sod 4.5 gm/ Dextrose) 120 mls @ 200 mls/hr IV NOW ONE; Protocol Stop: 05/06/19 19:05 Last Infusion: 05/06/19 20:04 Dose: 0 mls/hr Documented by: [id number] Admin: 05/06/19 19:23 Dose: 200 mls/hr Documented by: [id number] Potassium Phosphate (Potassium Phosphate Replace) 6 mmol IV NOW STA Stop: 05/06/19 14:01 Last Admin: 05/06/19 20:04 Dose: Not Given Documented by: [id number] Blood Pressure Blood Pressure Findings: Normal blood pressure Discharge Plan Visit Data *Final* Discharge Date/Time: 05/06/19 17:33 Chief Complaint: Syncope (Near Syncope) ED Provider: Frank Murray Discharge Problem: Cellulitis, Dehydration, Acute UTI, Near syncope, Chronic heel ulcer Patient Disposition: Admitted As Inpatient Discharge Instructions Interventions: ED Discharge Assessment Last Done: 05/06/19 17:33 Discharge Problem: Cellulitis Qualifiers: Site of cellulitis: extremity Site of cellulitis of extremity: lower extremity Laterality: left Qualified Code(s): L03.116 - Cellulitis of left lower limb Chronic heel ulcer Qualifiers: Laterality: left Non-pressure ulcer stage: unspecified non-pressure ulcer stage Qualified Code(s): L97.429 - Non-pressure chronic ulcer of left heel and midfoot with unspecified severity
[2019-05-06] MEDS ORDERED: SODIUM CHLORIDE 0.9% 1000ML 500 ML IV ONE ×2 (16:53→18:10)
--- NOTE | 2019-05-06 17:21 | History & Physical Report ---
Date of Service May 06, 2019 Assessment & Plan (1) Dizziness: (2) Fall: Pt is 68 y/o M with PMH DM II, chronic A. 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 Patient states last night was getting ready for bed when he had onset of dizziness and chills. Dizziness this am with ambulating, lost balance and fell. In ER afebrile, P: 79, R: 18, BP: 123/61, 97% on RA. CXR: No acute process. Stable cardiomegaly. CT HEAD: No acute intracranial abnormality or calvarial fracture. 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 (Pt will hx CVA in 01/2018) CT C-SPINE: No acute fracture or subluxation. Degenerative and postoperative changes Dizziness likely secondary to infection, dehydration. DDX: orthostatic hypotension, arrhythmia -Treatment of infection as below -orthostatic vital signs -IVF -tele to monitor -PT/OT eval when appropriate (3) Cellulitis of left lower extremity: (4) Foot ulcer, left: (5) Elevated lactic acid level: Patient noted ulcer to left calcaneus for several weeks, thought secondary to his compression hose. Noted redness, discomfort, warmth to left lower leg past couple of days. Reported chills last night - ER afebrile, no tachycardia, no hypotension. WBC: 11.1, lactate: 3.7. INR: 4.4 so DVT less likely -In ER given Rocephin, vancomycin, 500 mL NSS -Blood cultures pending -Trend lactic acid -IVF -Zosyn, daptomycin -X-ray Left calcaneus: Soft tissue edema. No acute bony abnormality. -ID consult -Wound consult -CBC in a.m. (6) Hypomagnesemia: Magnesium: 1.5 -In ER given magnesium sulfate 2 g IV -Monitor magnesium (7) Hypophosphatemia: Phosphorus: 1.2 -In ER given potassium phosphorus 6 mmol IV -Give additional potassium and phosphorus IV -Monitor phosphorus and electrolytes (8) Acute kidney injury superimposed on CKD: History CKD III Cr: 2.0 (baseline ~1.5) -IVF -Monitor renal functions -Hold Lasix, losartan, metformin and avoid other nephrotoxic agents when possible -Consider nephrology consult if worsening or no improvement (9) Diarrhea: One episode of loose stool and dry heave after onset of dizziness on 05/05/2019. No abdominal pain -Obtain c-diff if any further diarrhea -If additional diarrhea consider stool studies (10) Abnormal urinalysis: UA:+ Nitrite, 3+ leukoesterase, > 30 WBC, 2+ bacteria, > epithelial No dysuria, hematuria, urinary frequency, urgency -Urine culture pending (11) Diabetes mellitus, type II: A1c: 7.0 on 11/2018 -Hold metformin -A1c in a.m. -NovoLog sliding scale per protocol (12) Atrial fibrillation: Chronic atrial fibrillation on Coumadin INR: 4.4 -Hold Coumadin -INR in a.m. (13) Tachy-geronimo syndrome: S/p pacemaker -Pacemaker interrogation (14) CVA (cerebral vascular accident): History CVA 01/2018 with residual right-sided weakness. Sometimes ambulates with use of cane -Continue aspirin -Coumadin held as above -Holding atorvastatin secondary to daptomycin (15) Hypertension: Stable -Hold losartan secondary to JORGE -Monitor BP (16) Dyslipidemia: -Hold atorvastatin secondary to daptomycin use (17) Mixed sleep apnea: -BiPAP at bedtime (18) Chronic anemia: H/H: 13/41. Baseline Hgb~11.6 -Monitor H&H -Continue iron supplement and B12 supplement DVT Prophylaxis -Currently INR supratherapeutic, monitor INR Full Code as per discussion with pt Follows with Dr Desai for routine care Pt was seen and care coordinated with Dr Munson. See addendum History of Present Illness Chief Complaint: Dizziness Primary Care Provider: Jocelyne Desai, DO Pt is 68 y/o M with PMH DM II, chronic A. 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 Patient states last night was getting ready for bed when he had onset of dizziness, had one episode of dry heaves and one loose BM and had chills. Patient states had difficulty sleeping last night. He did not take his temperature. Patient states this morning he got up out of bed and felt dizzy and was ambulating to bathroom using his cane when his cane slipped causing patient to lose balance and fell backwards. Patient denies any LOC. Complaining of some neck stiffness and aching. Patient denies any shortness of breath, chest pain, palpitations prior to fall. He also reports noticed a ulcer to his left posterior calcaneus several weeks ago and has been applying Band-Aids to the area. Patient denies any noted discharge. He reports he believes this ulcer started secondary to his compression hose being bunched up. Past couple days has noticed increased redness to left lower leg with left lower leg tenderness and warmth. Patient reports chronic back pain denies any increased pain. Denies any abdominal pain, dysuria, hematuria, urinary frequency. Denies ill contacts, recent travel. Bassam es diaphoresis, SEXTON, vision changes,CP, SOB, orthopnea, palpitations, cough, sore throat, choking, otalgia, rhinorrhea, increased or changing paresthesias, increased extremity edema. Allergies Allergy/AdvReac Type Severity Reaction Status Date / Time No Known Allergies Allergy Verified 05/06/19 12:14 Home Medications Home Medications Medication Instructions Recorded Confirmed Type Flintstones Complete (iron) 1 tab PO PM #0 04/11/13 05/06/19 History atorvastatin 40 mg PO PM #0 tab 01/08/17 05/06/19 History warfarin 4.5 mg PO PM #0 tab 01/08/17 05/06/19 History cholecalciferol (vitamin D3) 1,000 unit PO PM 10/18/17 05/06/19 History [Vitamin D3] aspirin 81 mg PO PM 05/06/19 05/06/19 History cyanocobalamin (vitamin B-12) 1,000 mcg PO PM 05/06/19 05/06/19 History furosemide 20 mg PO SUTUTHSA 05/06/19 05/06/19 History furosemide 40 mg PO MOWEFR 05/06/19 05/06/19 History iron,carbonyl-vitamin C [Vitron-C] 1 tab PO PM 05/06/19 05/06/19 History losartan 50 mg PO PM 05/06/19 05/06/19 History metformin 500 mg PO BID 05/06/19 05/06/19 History tamsulosin 0.4 mg PO PM 05/06/19 05/06/19 History Past Med/Surg History Medical History (Updated 05/06/19 @ 17:39 by Danay Levy PA-C) A-fib (Acute) CHF (congestive heart failure) (Chronic) Chronic anemia CKD (chronic kidney disease), stage III CVA (cerebral vascular accident) 01/2018; residual right sided weakness Degenerative disc disease (Chronic) Depression (Chronic) Diabetes mellitus, type II Dyslipidemia Hypertension (Chronic) Mixed sleep apnea Pacemaker (Chronic) Tachy-gernoimo syndrome Surgical History (Updated 05/06/19 @ 17:24 by Danay Levy PA-C) Gastric bypass status for obesity Family History (Updated 05/06/19 @ 17:30 by Danay Levy PA-C) Other Cancer Diabetes Hypertension Social History (Updated 05/06/19 @ 17:30 by Danay Levy PA-C) Preferred Language: Ukrainian 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 Ability: Effective Sourcing Analyst Required: No Beliefs That Will Affect Care: None Current Living Situation: Alone and Family Current Living Situation Comment: family live upstairs Other Information That Helps Us Care for You: No Feels Safe at Home: Yes Safety Concerns: Feels Safe At This Time Smoking Status: Never smoker Second Hand Exposure: No ; Hx Alcohol Use: Yes Alcohol Intake Frequency: Holidays/Special Occasions Hx Substance Use: No Review of Systems Review of Systems: All systems reviewed & are unremarkable except as noted in HPI & below Physical Exam Physical Exam: General: no acute distress, ill appearing Head: normocephalic, atraumatic Eyes: PERRL, EOM's intact, conjunctiva non-injected, anicteric ENT: normal inspection external ears, nose, mucous membranes dry Neck: supple, trachea midline, mild tenderness to palpation right paraspinous muscles Lungs: clear, no respiratory distress, no wheezing/rhonchi/rales CV: irregularly irregular, no murmur Abd: normal BS, soft, non-tender Back: no spinous process tenderness to palpation, No CVA tenderness to palpation Ext: BLE with venous stasis skin changes, thickened toenails throughout, +dry flaky skin; LLE: posterior calcaneus with ulcer without discharge with surrounding erythema, +warmth, redness and tenderness to lower leg; sensation to light touch intact Neuro: A&O x 3, chronic right arm and leg weakness, no other focal deficits noted, normal affect Skin: warm, dry; +abrasions to right dorsal hand, +abrasion to right scapula, see above in extremities Results & Data Vital Signs (Past 12 Hours) Vital Signs Temp Pulse Pulse Resp BP BP Pulse Ox 05/06/19 15:00 66 20 114/60 96 05/06/19 13:14 86 22 109/54 L 05/06/19 11:58 96 05/06/19 11:46 36.9 C 79 18 123/61 97 Laboratory Results Short CBC 05/06/19 05/06/19 05/06/19 Range/Units 11:40 11:40 15:50 WBC 11.15 H (4.8-10.8) K/uL Hgb 13.2 L (14.0-18.0) g/dL Hct 41.3 L (42-52) % Plt Count 165 (130-400) K/uL Creatinine 2.08 H (0.6-1.4) mg/dl Lactate 3.7 H* (0.4-2.0) mmol/L BMP 05/06/19 11:40 Sodium 142 Potassium 3.7 Chloride 110 H Carbon Dioxide 22 BUN 40 H Creatinine 2.08 H Glucose 178 H Calcium 8.7 Cardiac Enzymes 05/06/19 Range/Units 11:40 Troponin I < 0.015 (0-0.045) ng/ml Liver Function 05/06/19 Range/Units 11:40 Total Bilirubin 0.7 (0.2-1) mg/dl AST 37 (15-37) U/L ALT 30 (12-78) U/L Alkaline Phosphatase 66 (45-117) U/L Albumin 3.3 L (3.4-5.0) gm/dl Urine 05/06/19 Range/Units 14:20 Urine Color Yellow Urine Appearance Cloudy A (Clear) Urine pH >= 9.0 H (4.5-7.5) Ur Specific [place] 1.010 (1.000-1.030) Urine Protein 2+ H (Negative) Urine Glucose (UA) Negative (Negative) Diagnostic Findings CXR: IMPRESSION: No significant change compared to the prior study. No acute process. Stable cardiomegaly. CT HEAD: IMPRESSION: 1. No acute intracranial abnormality or calvarial fracture. 2. 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 CT C-SPINE: IMPRESSION: 1. No acute fracture or subluxation. 2. Degenerative and postoperative changes as above. ECG Rate (beats per minute): 68 Findings: + paced rhythm Supervising Physician Co-Signing Physician Notes HISTORY: Record reviewed. Patient interviewed and examined. Care coordinated with Danay Levy PA-C. Please refer to her documentation for complete history. Briefly, 68-year-old male with history of chronic atrial fibrillation, hypertension, diabetes, venous insufficiency, and other problems. Presented to the ED with weakness, fall, ulcer left posterior heel, associated cellulitis. EXAM: General- no distress Lungs- clear to auscultation; no respiratory distress Cardiovascular- RRR; no gallop; no JVD; 2-3+ pretibial edema Abdomen- + bowel sounds, soft, nontender Extremities- no cyanosis; no calf tenderness Neuro- alert, oriented Skin- chronic venous insufficiency lower extremities; ulcer left posterior heel ~ 2 cm; erythema + warmth LLE below knee DATA: Hemoglobin 13.2, white count 11,150, platelet count 165,000. BUN 40, creatinine 2.08. Magnesium 1.5. Phosphorus 1.2. Random glucose 178. Lactate 3.7. Other lab studies as noted. Chest x-ray reviewed and demonstrated pacemaker, cardiomegaly, no CHF, infiltrates, pleural effusions. EKG performed at 1142 reviewed and demonstrated ventricular paced rhythm with occasional PVCs at 70 / minute, repolarization abnormalities. ASSESSMENT AND PLAN: Ulcer left posterior heel with associated cellulitis. Does not meet criteria for sepsis per current CMS guidelines. Blood cultures obtained. IV antibiotic therapy with daptomycin + piperacillin / tazobactam. Lactate elevated. Metformin could be contributing factor. Follow. INR elevation secondary to warfarin. Follow. Creatinine elevation due to CKD. Consult ID and Wound Care. Please refer to GEORGE Levy's documentation for discussion of other issues.
--- NOTE | 2019-05-06 17:21 | CT Scan Report ---
CT cervical spine wo con CT DOSE: 266.55 mGy.cm CLINICAL HISTORY: 68 years-old Male with fall, neck pain. Acute neck pain status post fall COMPARISON: Head CT 05/06/2019. TECHNIQUE: Multiple axial CT images of the cervical spine were obtained without contrast. A dose low ering technique was utilized adhering to the principles of ALARA. FINDINGS: Demineralized appearance of the bones. Anterior plate and screw fusion at C3-C6. Additionally, thread spinner ior interbody juliet and screw fusion is also noted at these levels. The left C3 screw extends into the C3-C4 facet joint. No hardware fracture or loosening. Partial corpectomy changes at the C4 and C5 lev els. There is multilevel spondylitic spurring and disc space narrowing with at least moderate facet a rthrosis. No acute fracture or subluxation. Evaluation of the central canal and neuroforamina is bett er assessed by MRI. Multilevel foraminal narrowing. Lung apices are clear without pneumothorax. No pr evertebral soft tissue swelling. IMPRESSION: 1. No acute fracture or subluxation. 2. Degenerative and postoperative changes as above. ACT 112: Negative or not required by law. The above report was generated using voice recognition software. It may contain grammatical, syntax o r spelling errors. Electronically signed by: Koko Lloyd M.D. 05/06/2019 5:19 PM
--- NOTE | 2019-05-06 17:40 | XRay Report ---
XR calcaneus LT min 2V CLINICAL HISTORY: ulcer r/o osteomyelitis COMPARISON: None. DISCUSSION: Heel spur. Ossification Achilles tendon insertion. Mild soft tissue edema. No evidence fo r bony destructive process. IMPRESSION: Soft tissue edema. No acute bony abnormality. ACT 112: Negative or not required by law. The above report was generated using voice recognition software. It may contain grammatical, syntax or spelling errors. Electronically signed by: Greg Morales M.D. 05/06/2019 5:39 PM
[2019-05-06] MEDS ORDERED: CONSULT PHARMACY STA (18:10)
[2019-05-06] MEDS ORDERED: DEXTROSE 50% 50 ML SYRINGE IV PRN (18:10)
[2019-05-06] MEDS ORDERED: GLUCOSE 40% GEL 15 GM TUBE PO PRN (18:10)
[2019-05-06] MEDS ORDERED: ONDANSETRON INJ 2 MG/ML 2 ML VIAL IV PRN (18:10)
[2019-05-06] MEDS ORDERED: GLUCAGON FOR INJ 1 MG VIAL SQ PRN (18:10)
[2019-05-06] MEDS ORDERED: CARBOHYDRATES FOR HYPOGLYCEMIA PO PRN (18:10)
[2019-05-06] MEDS ORDERED: GLUCOSE 10 TABS/TUBE PO PRN (18:10)
[2019-05-06] MEDS ORDERED: POTASSIUM PHOSPHATE 15 MMOL in SODIUM CHLORIDE 0.9% 250 ML IV ONE (18:15)
[2019-05-06] MEDS ORDERED: PIPERACILL/TAZOBAC CONSULT ACTIVE PRN (18:19)
[2019-05-06] MEDS ORDERED: DAPTOMYCIN CONSULT ACTIVE PRN (18:22)
[2019-05-06] MEDS ORDERED: PIPERACILLIN/TAZOBACTAM 4.5 GM in DEXTROSE 5% 100 ML IV ONE (18:30)
[2019-05-06] MEDS: DAPTOmycin 400 MG in SYRINGE 0 ML IV SCH (18:58)
--- NOTE | 2019-05-06 19:00 | XRay Report ---
XR chest 2V PA/lateral CLINICAL HISTORY: SEPSIS dyspnea COMPARISON STUDY: 05/06/2019 FINDINGS: Stable cardiomegaly. Unchanged permanent unipolar cardiac pacemaker. Lungs are considered c lear. No evidence for focal infiltrate. Degenerative changes thoracic spine. IMPRESSION: Stable cardiomegaly. No acute process. ACT 112: Negative or not required by law. The above report was generated using voice recognition software. It may contain grammatical, syntax or spelling errors. Electronically signed by: Greg Morales M.D. 05/06/2019 6:59 PM
[2019-05-06] MEDS: TAMSULOSIN HCL 0.4 MG CAP PO SCH (19:33)
[2019-05-06] MEDS: FLINTSTONES COMPLETE CHEWABLE TAB PO SCH (19:33)
[2019-05-06] MEDS: CYANOCOBALAMIN 500 MCG TABLET (VITAMIN B-12) PO SCH (19:33)
[2019-05-06] MEDS: ASPIRIN 81 MG ECTAB PO SCH (19:33)
[2019-05-06] MEDS: CHOLECALCIFEROL 1,000 UNITS 25 MCG TAB PO SCH (19:33)
[2019-05-06] MEDS: SODIUM CHLORIDE 0.9% 1000ML 1,000 ML IV SCH (20:30)
[2019-05-06] MEDS: INSULIN ASPART 100 UNITS/ML 3 ML PEN SC SCH (20:33)
[2019-05-06] MEDS ORDERED: NON-FORMULARY MEDICATION (Iron,Carbonyl-Vitamin C [Vitron-C] 1 TAB) PO SCH (21:00)
[2019-05-06] MEDS ORDERED: SODIUM CHLORIDE 0.9% 1000ML 1,000 ML IV SCH (21:15)
[2019-05-06] MEDS: ACETAMINOPHEN 325 MG TAB PO PRN (23:33)
[2019-05-07] MEDS: PIPERACILLIN/TAZOBACTAM 4.5 GM in DEXTROSE 5% 100 ML IV SCH ×4 (00:03→23:50)
[2019-05-07 06:25] LABS: Mean Corpuscular Hgb Conc 32.1 g/dL (32-36)
[2019-05-07] MEDS: ACETAMINOPHEN 325 MG TAB PO PRN ×3 (06:30→22:10)
[2019-05-07] MEDS ORDERED: Nursing to Pharmacy Communication ONE (06:34)
[2019-05-07 06:35] LABS: Hematocrit (blood only) 39.6 % (42-52); Hemoglobin 12.7 g/dL (14.0-18.0); Mean Corpuscular Hemoglobin 25.9 pg (25-34); Mean Corpuscular Volume 80.8 fL (80-100); RDW Standard Deviation 56.1 fL (36.4-46.3); White Blood Count 19.28 K/uL (4.8-10.8)
[2019-05-07 06:39] LABS: INR 3.8 (0.9-1.1)
[2019-05-07 06:53] LABS: Platelet Count 123 K/uL (130-400)
[2019-05-07 06:56] LABS: Basophils # (auto) 0.02 K/uL (0-0.2); Basophils % (auto) 0.1 %; Immature Granulocytes # (auto) 0.41 K/uL (0.00-0.02); Immature Granulocytes % (auto) 2.1 %; Lymphocytes # (auto) 0.67 K/uL (1.2-3.4); Lymphocytes % (auto) 3.5 %; Monocytes % (auto) 5.2 %; Neutrophils # (auto) 17.18 K/uL (1.4-6.5); Neutrophils % (auto) 89.1 %; Ovalocytes 1+; Platelet Estimate Decreased (Normal); Toxic Vacuolation 1+
[2019-05-07 07:07] LABS: BUN Creatinine Ratio 20.8 (10-20); Calcium 7.8 mg/dl (8.5-10.1); Creatinine Clr Calc Pharmacy 46.8 ml/min; Est GFR (African American) 38.2; Magnesium 1.8 mg/dl (1.8-2.4); Potassium 4.6 mmol/L (3.5-5.1)
[2019-05-07 07:16] LABS: Estimated Average Glucose 157 mg/dl; Hemoglobin A1C 7.1 % (4.5-5.6)
--- NOTE | 2019-05-07 07:16 | XRay Report ---
XR chest 1V portable HISTORY: cellulitis COMPARISON: Chest 05/06/2019. FINDINGS: The lungs are clear. The heart remains mildly enlarged. No pleural effusions. No pneumothor ax. There is a left-sided single lead pacemaker. IMPRESSION: No significant change compared to the prior study. No acute process. Stable cardiomegaly. ACT 112: Negative or not required by law. Electronically signed by: Josafat Hein M.D. 05/07/2019 7:15 AM
[2019-05-07] MEDS: SODIUM CHLORIDE 0.9% 1000ML 1,000 ML IV SCH (07:21)
[2019-05-07] MEDS: INSULIN ASPART 100 UNITS/ML 3 ML PEN SC SCH ×4 (08:57→21:22)
--- NOTE | 2019-05-07 13:09 | Infectious Disease Consult ---
Date of Consultation May 07, 2019 Assessment & Plan (1) Cellulitis of left lower extremity: will continue IV abx for now. If he continues to improved clinically and blood cultures remain negative, likely transition to po abx to complete abx. 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 imaging negative,. found to have leg edema and lle warmth, erythema. was admitted for cellulitis and placed on dapto and zosyn. tmax in ER 38.2, now afebrile. Lactate initially 4, improved to 2.5. states erythema, warmth, pain and swelling in leg have improved. no f/c. no abd pain, no n/v/d. no cp, sob, cough. Flu swab negative. UA >30 wbc, + 2 bacteria. blood cultures pending. wbc 19, creat 2. eating lunch on my exam. overall feeling better. Allergies Allergy/AdvReac Type Severity Reaction Status Date / Time No Known Allergies Allergy Verified 05/06/19 12:14 Home Medications Home Medications Medication Instructions Recorded Confirmed Type Flintstones Complete (iron) 1 tab PO PM #0 04/11/13 05/06/19 History atorvastatin 40 mg PO PM #0 tab 01/08/17 05/06/19 History warfarin 4.5 mg PO PM #0 tab 01/08/17 05/06/19 History cholecalciferol (vitamin D3) 1,000 unit PO PM 10/18/17 05/06/19 History [Vitamin D3] aspirin 81 mg PO PM 05/06/19 05/06/19 History cyanocobalamin (vitamin B-12) 1,000 mcg PO PM 05/06/19 05/06/19 History furosemide 20 mg PO SUTUTHSA 05/06/19 05/06/19 History furosemide 40 mg PO MOWEFR 05/06/19 05/06/19 History iron,carbonyl-vitamin C [Vitron-C] 1 tab PO PM 05/06/19 05/06/19 History losartan 50 mg PO PM 05/06/19 05/06/19 History metformin 500 mg PO BID 05/06/19 05/06/19 History tamsulosin 0.4 mg PO PM 05/06/19 05/06/19 History Patient History Medical History A-fib (Acute) CHF (congestive heart failure) (Chronic) Chronic anemia CKD (chronic kidney disease), stage III CVA (cerebral vascular accident) 01/2018; residual right sided weakness Degenerative disc disease (Chronic) Depression (Chronic) Diabetes mellitus, type II Dyslipidemia Hypertension (Chronic) Mixed sleep apnea Pacemaker (Chronic) Tachy-geronimo syndrome Surgical History Gastric bypass status for obesity Family History Other Cancer Diabetes Hypertension Social History Preferred Language: Bolivian 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 Ability: Effective Panelboard Operator Required: No Beliefs That Will Affect Care: None marital status: Current Living Situation: Alone and Family Current Living Situation Comment: family live upstairs Other Information That Helps Us Care for You: No Feels Safe at Home: Yes Safety Concerns: Feels Safe At This Time Smoking Status: Never smoker Second Hand Exposure: No ; Hx Alcohol Use: Yes Alcohol Intake Frequency: Holidays/Special Occasions Hx Substance Use: No Review of Systems Review of Systems: All systems reviewed & are unremarkable except as noted in HPI & below Physical Exam Constitutional: WD/WN, vitals as above Eyes: PERRL, conjunctivae normal, anicteric sclerae ENMT: external ear and nose normal, oropharynx normal Neck: normal visual inspection Respiratory: normal respiratory effort, lungs clear to auscultation Cardiovascular: RRR, no murmur, no edema Extremities: + pedal edema Gastrointestinal (Abdomen): normal bowel sounds, soft, nontender, no hepatosplenomegaly Musculoskeletal: Head/Neck/Chest: normocephalic and head atraumatic Skin: no rashes, warm and dry + erythema Psychiatric: A+Ox3, euthymic affect Results & Data ([facility]) Vital Signs (Past 12 Hours) Vital Signs Temp Pulse Pulse Resp BP BP Pulse Ox 05/07/19 11:26 36.7 C 59 L 20 95/55 L 96 05/07/19 07:11 75 05/07/19 06:51 36.6 C 61 18 102/52 L 94 05/07/19 03:55 64 18 93 05/07/19 03:54 36.6 C 76 20 138/67 94 PG Care Time/CCT Total # of Minutes Spent Total Time Spent with Patient: Total time spent is greater than 50% in coordination of care (as documented) at patient's floor/unit and/or counseling patient: Coding Level of Care Code 10036 Inpt Consult Level 4 Diagnoses Cellulitis of left lower extremity L03.116
[2019-05-07] MEDS ORDERED: SODIUM CHLORIDE 0.9% 500 ML IV SCH (13:30)
--- NOTE | 2019-05-07 17:29 | Ultrasound Report ---
US arterial duplex LE LT HISTORY: 68 years-old Male LLE wound, poor pulses decreased pulses of the left lower extremity COMPARISON: None TECHNIQUE: Multiple real-time sonographic images of the left lower extremity arterial structures were obtained assessing grayscale appearance, color and spectral flow FINDINGS: Segmental blood pressures were not obtained secondary to patient unable to cooperate. Triphasic waveforms are noted within the common femoral, profunda femoris and proximal superficial fe moral arteries. Biphasic waveforms within the distal aspect of the superficial femoral artery with ca lcified plaque. Blunted biphasic waveforms of the popliteal artery. Increased peak systolic velocitie s within the popliteal artery measure up to 203 cm/s. Nonspecific subcutaneous edema of the lower ext remity. Blunted monophasic waveforms within the posterior tibial, anterior tibial, peroneal and dorsa lis pedis arteries. No additional significantly elevated peak systolic velocities. There are decrease d peak systolic velocities throughout the calf arteries. Distal peroneal artery not visualized. IMPRESSION: 1. No arterial occlusion identified. 2. Multifocal blunted monophasic waveforms as above compatible with stenosis related to atherosclerot ic vascular disease. 3. Elevated peak systolic velocities in the popliteal artery are also suggestive of vessel stenosis. ACT 112: Negative or not required by law. The above report was generated using voice recognition software. It may contain grammatical, syntax o r spelling errors. Electronically signed by: Koko Lloyd M.D. 05/07/2019 5:27 PM
[2019-05-07] MEDS: DAPTOmycin 400 MG in SYRINGE 0 ML IV SCH (18:15)
[2019-05-07] MEDS: CYANOCOBALAMIN 500 MCG TABLET (VITAMIN B-12) PO SCH (20:21)
[2019-05-07] MEDS: TAMSULOSIN HCL 0.4 MG CAP PO SCH (20:21)
[2019-05-07] MEDS: ASPIRIN 81 MG ECTAB PO SCH (20:21)
[2019-05-07] MEDS: CHOLECALCIFEROL 1,000 UNITS 25 MCG TAB PO SCH (20:22)
[2019-05-07] MEDS: FLINTSTONES COMPLETE CHEWABLE TAB PO SCH (20:22)
--- NOTE | 2019-05-07 21:53 | Hospitalist Progress Note ---
Date of Service May 07, 2019 Assessment & Plan (1) Cellulitis of left lower extremity: Chronic venous insufficiency. Presented with ulcer left posterior heel and associated cellulitis of the left leg. Did not meet criteria for sepsis at time of admission per current CMS guidelines. Blood cultures obtained. Treated with IV daptomycin and piperacillin/tazobactam. Wound Care Nursing and ID consulted. No fever, but leukocytosis noted. Continue current intravenous antibiotic therapy pending culture results. (2) Foot ulcer, left: Wound Care Nursing consulted. (3) Elevated lactic acid level: Serum lactate elevated. Did not meet criteria for sepsis at time of admission. Elevated lactate could be secondary to infection and/or metformin therapy. Improved. (4) Hypomagnesemia: Serum magnesium 1.5 at time of admission. Received replacement. Magnesium today = 1.8. Follow. (5) Hypophosphatemia: Serum phosphorus 1.2 at time of admission. Received replacement. Phosphorus today = 4.0. Follow. (6) Abnormal urinalysis: Admission urinalysis showed 2+ protein, 1+ blood, positive nitrites, positive leukocyte esterase, 5-10 RBCs, greater than 30 WBCs, greater than 30 epithelial cells, presence of bacteria. Urine culture pending. (7) CHF (congestive heart failure): Chronic dependent edema due to venous insufficiency. Echo 12/20/18 showed normal LVEF. Probable chronic left ventricular diastolic CHF. No apparent decompensated CHF per exam or chest x-rays. Hold furosemide due to infection, elevated lactate, elevated creatinine. Resume furosemide as necessary. (8) Atrial fibrillation: Rate controlled. Continue warfarin, titrate dosing. (9) Hypertension: Continue losartan with hold parameters. (10) CKD (chronic kidney disease), stage III: History of CKD 3 with recent creatinines running between 1.5 and 1.92. Creatinine at time of admission was 2.08. Creatinine today = 2.04. Hold furosemide, follow. (11) Diabetes mellitus, type II: Diabetes mellitus type 2 managed with metformin at home. Hold metformin during hospital stay. Hemoglobin A1c 7.1. Random glucose at time of admission 178. Insulin coverage with NovoLog as necessary. Add Lantus if blood sugars remain elevated. Fasting blood sugar this morning = 133. (12) DVT prophylaxis: On warfarin for chronic atrial fibrillation. (13) Discharge planning issues: Discharge disposition to be determined. Medical follow-up with Dr. Desai. Admission and Anticipated Discharge Date Admission Date: May 06, 2019 Subjective Recheck for multiple problems. Patient seen in their room this afternoon. No fever or chills, but feels weak. No pain LLE. Review of Systems: Constitutional- no fever. Cardiac- no chest pain. Pulmonary- no cough or SOB. GI- no nausea, vomiting, diarrhea, melena, hematochezia. - no urinary symptoms. Otherwise, as noted above. Physical Exam Constitutional: no acute distress Respiratory: no respiratory distress Auscultation: lungs clear to auscultation bilaterally Cardiovascular: Rate/Rhythm: + irregularly irregular Vessels: no JVD Extremities: + edema (2-3+ edema bilat lower extremities); no calf tenderness Gastrointestinal (Abdomen): normal bowel sounds, soft, nontender, no hepatosplenomegaly Skin: no rashes, warm and dry Psychiatric: Orientation: alert and oriented x 3 Results & Data ([facility]) Vital Signs (Past 12 Hours) Vital Signs Temp Pulse Pulse Resp BP Pulse Ox 05/07/19 19:00 36.8 C 59 L 19 118/71 94 05/07/19 15:31 36.4 C L 62 18 121/72 99 05/07/19 15:13 60 05/07/19 11:26 36.7 C 59 L 20 95/55 L 96 Laboratory Results 05/07/19 06:14 05/07/19 06:00 Laboratory Tests 05/06/19 05/06/19 05/07/19 15:50 19:03 06:00 INR 3.8 H Hemoglobin A1c Lactate 3.7 H* 4.0 H* 05/07/19 05/07/19 05/07/19 06:14 06:14 08:16 INR Hemoglobin A1c 7.1 H Lactate 2.5 H* 2.2 H* Microbiology 05/06/19 15:50 Blood Aerobic Blood Culture - Preliminary No growth in Aerobic bottle after 24 hours. 05/06/19 15:50 Blood Anaerobic Blood Culture - Preliminary No growth in Anaerobic bottle after 24 hours. 05/06/19 15:45 Blood Aerobic Blood Culture - Preliminary No growth in Aerobic bottle after 24 hours. 05/06/19 14:20 Urine,Clean Catch Urine Culture - Preliminary Gram negative bacilli Diagnostic Findings PORTABLE CHEST X-RAY FINDINGS: The lungs are clear. The heart remains mildly enlarged. No pleural effusions. No pneumothorax. There is a left-sided single lead pacemaker. IMPRESSION: No significant change compared to the prior study. No acute process. Stable cardiomegaly. ACT 112: Negative or not required by law. Electronically signed by: Josafat Hein M.D. 05/07/2019 7:15 AM
[2019-05-08 07:11] LABS: INR 2.7 (0.9-1.1); Prothrombin Time 26.8 Seconds (9.0-12.0)
[2019-05-08 07:19] LABS: BUN Creatinine Ratio 21.8 (10-20); Calcium 7.7 mg/dl (8.5-10.1); Creatinine Clr Calc Pharmacy 53.5 ml/min; Est GFR (African American) 43.6; Est GFR (Non-African American) 37.6; Magnesium 1.9 mg/dl (1.8-2.4); Potassium 4.2 mmol/L (3.5-5.1)
[2019-05-08 07:34] LABS: Phosphorus 2.8 mg/dl (2.5-4.9)
[2019-05-08] MEDS: PIPERACILLIN/TAZOBACTAM 4.5 GM in DEXTROSE 5% 100 ML IV SCH ×2 (08:27→15:58)
[2019-05-08] MEDS: INSULIN ASPART 100 UNITS/ML 3 ML PEN SC SCH ×4 (08:29→20:30)
--- NOTE | 2019-05-08 08:41 | Wound Consultation ---
Date of Consultation May 07, 2019 Assessment & Plan (1) Diabetic foot ulcer associated with type 2 diabetes mellitus: This is a 68-year-old man with diabetic foot ulcer of his left calcaneus likely secondary to rubbing on his compression stocking. No debridement was required at this time. Superficial wound culture was obtained. Wound will be dressed with Aquacel AG. Patient was unable to tolerate bedside AKOSUA. Would recommend arterial ultrasounds. We will continue to follow. Thank you for allowing me to participate in the care of this patient. Please not hesitate to call with any questions. (2) Cellulitis of left lower extremity: History of Present Illness Reason for Consultation: left calcaneoous ulcer Attending Physician: Ty Cook MD History of Present Illness This is a 68-year-old male with a past medical history of type 2 diabetes, chronic A. 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 Patient was found to have ulcer on his left calcaneus. Patient reportedly noted the ulcer for several weeks and thought it was secondary to his compression stockings. Her last few days he noticed warmth and discomfort of the left lower leg. He reported chills last night. Patient was given Rocephin and vancomycin in the ER. He is now on Zosyn and daptomycin. X-ray of the left calcaneus shows soft tissue edema with no acute bony abnormality. Bedside ABIs were unable to be obtained due to foot jerk. Allergies Allergy/AdvReac Type Severity Reaction Status Date / Time No Known Allergies Allergy Verified 05/06/19 12:14 Home Medications Home Medications Medication Instructions Recorded Confirmed Type Flintstones Complete (iron) 1 tab PO PM #0 04/11/13 05/06/19 History atorvastatin 40 mg PO PM #0 tab 01/08/17 05/06/19 History warfarin 4.5 mg PO PM #0 tab 01/08/17 05/06/19 History cholecalciferol (vitamin D3) 1,000 unit PO PM 10/18/17 05/06/19 History [Vitamin D3] aspirin 81 mg PO PM 05/06/19 05/06/19 History cyanocobalamin (vitamin B-12) 1,000 mcg PO PM 05/06/19 05/06/19 History furosemide 20 mg PO SUTUTHSA 05/06/19 05/06/19 History furosemide 40 mg PO MOWEFR 05/06/19 05/06/19 History iron,carbonyl-vitamin C [Vitron-C] 1 tab PO PM 05/06/19 05/06/19 History losartan 50 mg PO PM 05/06/19 05/06/19 History metformin 500 mg PO BID 05/06/19 05/06/19 History tamsulosin 0.4 mg PO PM 05/06/19 05/06/19 History Patient History Medical History A-fib (Acute) CHF (congestive heart failure) (Chronic) Chronic anemia CKD (chronic kidney disease), stage III CVA (cerebral vascular accident) 01/2018; residual right sided weakness Degenerative disc disease (Chronic) Depression (Chronic) Diabetes mellitus, type II Dyslipidemia Hypertension (Chronic) Mixed sleep apnea Pacemaker (Chronic) Tachy-geronimo syndrome Surgical History Gastric bypass status for obesity Family History Other Cancer Diabetes Hypertension Social History Preferred Language: German 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 Ability: Effective Ergonomics Consultant Required: No Beliefs That Will Affect Care: None marital status: Current Living Situation: Alone and Family Current Living Situation Comment: family live upstairs Other Information That Helps Us Care for You: No Feels Safe at Home: Yes Safety Concerns: Feels Safe At This Time Smoking Status: Never smoker Second Hand Exposure: No ; Hx Alcohol Use: Yes Alcohol Intake Frequency: Holidays/Special Occasions Hx Substance Use: No Review of Systems Review of Systems: All systems reviewed & are unremarkable except as noted in HPI & below Physical Exam Constitutional: WD/WN, vitals as above Eyes: PERRL, conjunctivae normal, anicteric sclerae ENMT: external ear and nose normal, oropharynx normal Skin: Wound measuring 1.8 x 1.3 x 0.1 cm. Wound is covered with fibrin and slough. Wound bed is pink. Periwound is macerated but intact. There is moderate drainage and no foul odors. Neurologic: awake; not confused Psychiatric: A+Ox3, euthymic affect Results & Data Vital Signs (Past 12 Hours) Vital Signs Temp Pulse Pulse Resp BP BP Pulse Ox 05/08/19 07:20 36.8 C 62 18 117/72 91 05/08/19 04:00 37.2 C 59 L 19 118/70 96 05/08/19 03:33 94 H 22 94 05/08/19 00:00 87 05/07/19 23:00 36.2 C L 60 19 108/67 96 05/07/19 22:20 84 18 96 Diagnostic Findings X-ray of the left calcaneus shows soft tissue edema with no acute bony abnormality. PG Care Time/CCT Total # of Minutes Spent Total Time Spent with Patient: Total time spent is greater than 50% in coordination of care (as documented) at patient's floor/unit and/or counseling patient: Coding Level of Care Code 11576 Inpt Consult Level 3 Diagnoses Diabetic foot ulcer associated with type 2 diabetes mellitus E11.621; L97.509 Cellulitis of left lower extremity L03.116
--- NOTE | 2019-05-08 12:08 | Infectious Disease Progress Nt ---
Date of Service May 08, 2019 Assessment & Plan (1) Cellulitis of left lower extremity: will continue IV abx for now. If he continues to improve clinically and blood cultures remain negative, likely transition to po abx to complete abx. await final wound culture. Admission and Anticipated Discharge Date Admission Date: May 06, 2019 Subjective pt tolerating abx. afebrile, wbc increased to 19. creat improved. blood cultures remain negative, wound culture growing gbs, final pending, s/p wound eval. Results & Data ([facility]) Vital Signs (Past 12 Hours) Vital Signs Temp Pulse Pulse Resp BP BP Pulse Ox 05/08/19 11:39 36.6 C 61 20 105/68 97 05/08/19 08:00 62 05/08/19 07:20 36.8 C 62 18 117/72 91 05/08/19 04:00 37.2 C 59 L 19 118/70 96 05/08/19 03:33 94 H 22 94 Laboratory Results Microbiology 05/06/19 14:20 Urine,Clean Catch Urine Culture - Final Proteus mirabilis 05/07/19 14:50 Foot,Left Gram Stain - Final 05/07/19 14:50 Foot,Left Wound Culture - Preliminary Group B Beta Strep 05/06/19 15:45 Blood Aerobic Blood Culture - Preliminary No growth in Aerobic bottle after 24 hours. 05/06/19 15:45 Blood Anaerobic Blood Culture - Final 05/06/19 15:50 Blood Aerobic Blood Culture - Preliminary No growth in Aerobic bottle after 24 hours. 05/06/19 15:50 Blood Anaerobic Blood Culture - Preliminary No growth in Anaerobic bottle after 24 hours. PG Care Time/CCT Total # of Minutes Spent Total Time Spent with Patient: Total time spent is greater than 50% in coordination of care (as documented) at patient's floor/unit and/or counseling patient: Coding Level of Care Code 45403 Subseq Hosp Care Lvl 1 Diagnoses Cellulitis of left lower extremity L03.116
[2019-05-08] MEDS: ACETAMINOPHEN 325 MG TAB PO PRN ×2 (12:56→20:28)
--- NOTE | 2019-05-08 13:09 | Hospitalist Progress Note ---
Date of Service May 08, 2019 Assessment & Plan (1) Cellulitis of left lower extremity: Chronic venous insufficiency. Presented with ulcer left posterior heel and associated cellulitis of the left leg. Blood cx no growth Elevated WBC and Procalcitonin Wound cx grew group B beta strep On IV daptomycin and piperacillin/tazobactam. ID on board recommended to continue current abx management for now. Plan to transition on oral abx follow up sensitivity on discharge Wound Care Nursing on board Continue wound care (2) Foot ulcer, left: Present on admission with left heel Pressure ulcer, currently unstageable Arterial Doppler showed no arterial occlusion identified. Multifocal blunted monophasic waveforms as above compatible with stenosis related to atherosclerotic vascular disease. Elevated peak systolic velocities in the popliteal artery are also suggestive of vessel stenosis. Wound provider recommended Vascular surgery consult Wound Care Nursing consulted. (3) Elevated lactic acid level: Serum lactate elevated. Elevated lactate could be secondary to infection and/or metformin therapy. Elevated WBC and procalcitonin Did not meet criteria for sepsis at time of admission. Continue IV dapto and Zosyn Lactate normalized (4) Hypomagnesemia: Serum magnesium 1.5 at time of admission. Received replacement. Magnesium today = 1.9. Stable (5) Hypophosphatemia: Serum phosphorus 1.2 at time of admission. Received replacement. Phosphorus today = 2.8 Stable (6) UTI (urinary tract infection): UA on admission positive for nitrites, leukocyte esterase, 5-10 RBCs, greater than 30 WBCs, greater than 30 epithelial cells, presence of bacteria. Urine culture grew proteus Mirabilis Continue IV Zosyn for now (7) CHF (congestive heart failure): Chronic dependent edema due to venous insufficiency. Echo 12/20/18 showed normal LVEF. Probable chronic left ventricular diastolic CHF. CXR negative for CHF No sign of fluid overdose Continue to hold furosemide due to elevate creatinine. Resume furosemide as necessary. Continue monitor closely (8) Atrial fibrillation: Rate controlled. Continue warfarin with INR 2.7 (9) Hypertension: BP stable Continue losartan with hold parameters. (10) CKD (chronic kidney disease), stage III: History of CKD 3 with recent creatinine between 1.5 and 1.92. Creatinine at time of admission was 2.08. Creatinine improves to 1.8 today Continue to hold furosemide for now (11) Diabetes mellitus, type II: Most recent Hba1c 7.1 Continue to hold metformin during hospital stay. Hemoglobin A1c 7.1. On Insulin coverage with NovoLog as necessary and Lantus Continue monitor BS (12) Discharge planning issues: Discharge disposition to be determined. Medical follow-up with Dr. Desai. (13) DVT prophylaxis: On warfarin for chronic atrial fibrillation with INR Admission and Anticipated Discharge Date Admission Date: May 06, 2019 Subjective Pt was seen and examined Sitting in chair with no distress eating lunch Pt said that he feels a little better He said that he continues to feel a little dizzy with ambulation Denies any chest pain, palpitation, fever and SOB Physical Exam Physical Exam: General- No acute distress Head- atraumatic Eyes- PERRL, EOMI, ENT- oropharynx clear Neck- supple, no JVD Lungs- clear to auscultation Heart-no murmur Abdomen- normal bowel sounds, soft, nontender Extremities- no calf tenderness, erythema in lower extremities improve Neuro- alert, oriented x 3; PERRL, EOMI; no facial palsy; no dysarthria Skin- warm & dry
[2019-05-08] MEDS: DOCUSATE SODIUM 100 MG CAP PO PRN ×2 (14:05→19:11)
[2019-05-08] MEDS: WARFARIN SOD 3 MG TAB PO SCH (15:52)
[2019-05-08] MEDS: DAPTOmycin 400 MG in SYRINGE 0 ML IV SCH (18:35)
[2019-05-08] MEDS: TAMSULOSIN HCL 0.4 MG CAP PO SCH (20:26)
[2019-05-08] MEDS: CHOLECALCIFEROL 1,000 UNITS 25 MCG TAB PO SCH (20:27)
[2019-05-08] MEDS: FLINTSTONES COMPLETE CHEWABLE TAB PO SCH (20:27)
[2019-05-08] MEDS: ASPIRIN 81 MG ECTAB PO SCH (20:27)
[2019-05-08] MEDS: CYANOCOBALAMIN 500 MCG TABLET (VITAMIN B-12) PO SCH (20:27)
[2019-05-08] MEDS: LOSARTAN POTASSIUM 50 MG TAB PO SCH (20:28)
[2019-05-08] MEDS ORDERED: TRAMADOL HCL 50 MG TABLET PO STA (23:57)
[2019-05-09] MEDS: PIPERACILLIN/TAZOBACTAM 4.5 GM in DEXTROSE 5% 100 ML IV SCH ×4 (00:06→23:57)
[2019-05-09] MEDS: ACETAMINOPHEN 325 MG TAB PO PRN ×2 (04:53→20:47)
[2019-05-09 06:01] LABS: INR 2.4 (0.9-1.1); Prothrombin Time 23.8 Seconds (9.0-12.0)
[2019-05-09 06:21] LABS: Creatinine Clr Calc Pharmacy 61.6 ml/min; Est GFR (African American) 51.7; Est GFR (Non-African American) 44.6
[2019-05-09 08:16] LABS: Mean Corpuscular Hgb Conc 32.1 g/dL (32-36)
[2019-05-09] MEDS: INSULIN ASPART 100 UNITS/ML 3 ML PEN SC SCH ×4 (08:20→21:00)
[2019-05-09 08:30] LABS: Hemoglobin 10.9 g/dL (14.0-18.0); Mean Corpuscular Hemoglobin 26.1 pg (25-34); Mean Corpuscular Volume 81.3 fL (80-100); RDW Standard Deviation 56.6 fL (36.4-46.3); Red Blood Count 4.18 M/uL (4.7-6.1); White Blood Count 9.54 K/uL (4.8-10.8)
[2019-05-09 08:38] LABS: Mean Platelet Volume 11.2 fL (7.4-10.4); Platelet Count 116 K/uL (130-400); Platelet Estimate Decreased (Normal)
--- NOTE | 2019-05-09 11:11 | Infectious Disease Progress Nt ---
Date of Service May 09, 2019 Assessment & Plan (1) Cellulitis of left lower extremity: will continue IV abx for now. If he continues to improve clinically and blood cultures remain negative, likely transition to po abx to complete abx. await final wound culture. Admission and Anticipated Discharge Date Admission Date: May 06, 2019 Subjective remains afebrile. tolerating abx, wbc significantly improved, 9 today. creat improved to 1.5. blood cultures remain negative, final wound culture pending Results & Data ([facility]) Vital Signs (Past 12 Hours) Vital Signs Temp Pulse Pulse Resp BP BP Pulse Ox 05/09/19 07:40 36.4 C L 69 20 118/74 98 05/09/19 04:04 60 16 97 05/09/19 03: 36.4 C L 60 20 114/78 96 05/09/19 00:39 67 05/09/19 00:00 76 20 96 05/08/19 23:56 36.6 C 62 18 118/72 95 Diagnostic Findings Microbiology 05/06/19 15:50 Blood Aerobic Blood Culture - Preliminary No growth in Aerobic bottle after 48 hours. 05/06/19 15:50 Blood Anaerobic Blood Culture - Preliminary No growth in Anaerobic bottle after 48 hours. 05/06/19 15:45 Blood Aerobic Blood Culture - Preliminary No growth in Aerobic bottle after 48 hours. 05/06/19 15:45 Blood Anaerobic Blood Culture - Final 05/06/19 14:20 Urine,Clean Catch Urine Culture - Final Proteus mirabilis 05/07/19 14:50 Foot,Left Gram Stain - Final 05/07/19 14:50 Foot,Left Wound Culture - Preliminary Group B Beta Strep PG Care Time/CCT Total # of Minutes Spent Total Time Spent with Patient: Total time spent is greater than 50% in coordination of care (as documented) at patient's floor/unit and/or counseling patient: Coding Level of Care Code 52317 Subseq Hosp Care Lvl 1 Diagnoses Cellulitis of left lower extremity L03.116
--- NOTE | 2019-05-09 14:24 | Hospitalist Progress Note ---
Date of Service May 09, 2019 Assessment & Plan (1) Cellulitis of left lower extremity: Chronic venous insufficiency. Presented with ulcer left posterior heel and associated cellulitis of the left leg. Blood cx no growth Elevated WBC and Procalcitonin Wound cx grew group B beta strep On IV daptomycin and piperacillin/tazobactam. ID on board recommended to continue current abx management for now. Plan to transition on oral abx after sensitivity result Wound Care Nursing on board Continue wound care (2) Foot ulcer, left: Present on admission with left heel Pressure ulcer, currently unstageable Arterial Doppler showed no arterial occlusion identified. Multifocal blunted monophasic waveforms as above compatible with stenosis related to atherosclerotic vascular disease. Elevated peak systolic velocities in the popliteal artery are also suggestive of vessel stenosis. Wound provider recommended Vascular surgery consult Wound Care Nursing consulted. (3) Elevated lactic acid level: Serum lactate elevated. Elevated lactate could be secondary to infection and/or metformin therapy. Elevated WBC and procalcitonin Did not meet criteria for sepsis at time of admission. Continue IV dapto and Zosyn Lactate normalized (4) Hypomagnesemia: Serum magnesium 1.5 at time of admission. Received replacement. Magnesium today = 1.9. Stable (5) Right hip pain: Due to recent fall Will get an xray of the right hip Will add Tylenol prn and lidocaine (6) Hypophosphatemia: Serum phosphorus 1.2 at time of admission. Received replacement. Phosphorus today = 2.8 Stable (7) UTI (urinary tract infection): UA on admission positive for nitrites, leukocyte esterase, 5-10 RBCs, greater than 30 WBCs, greater than 30 epithelial cells, presence of bacteria. Urine culture grew proteus Mirabilis Continue IV Zosyn for now (8) CHF (congestive heart failure): Chronic dependent edema due to venous insufficiency. Echo 12/20/18 showed normal LVEF. Probable chronic left ventricular diastolic CHF. CXR negative for CHF No sign of fluid overdose Continue to hold furosemide due to elevate creatinine. Resume furosemide as necessary. Continue monitor closely (9) Atrial fibrillation: Rate controlled. Continue warfarin with INR 2.4 (10) Hypertension: BP stable Continue losartan with hold parameters. (11) CKD (chronic kidney disease), stage III: History of CKD 3 with recent creatinine between 1.5 and 1.92. Creatinine at time of admission was 2.08. Creatinine improves to 1.5 today furosemide has been on hold Will resume lasix (12) Diabetes mellitus, type II: Most recent Hba1c 7.1 Continue to hold metformin during hospital stay. Hemoglobin A1c 7.1. On Insulin coverage with NovoLog as necessary and Lantus Continue monitor BS (13) Discharge planning issues: Discharge disposition to be determined. Medical follow-up with Dr. Desai. (14) DVT prophylaxis: On warfarin for chronic atrial fibrillation with INR Admission and Anticipated Discharge Date Admission Date: May 06, 2019 Subjective Pt was seen and examined Sitting in chair with no distress Pt said that he is having a lot of pain in his right hip area He said that pain is worst when trying to move his right LLE Denies chest pain, palpitation, dizziness and fever Physical Exam Physical Exam: General- No acute distress Head- atraumatic Eyes- PERRL, EOMI, ENT- oropharynx clear Neck- supple, no JVD Lungs- clear to auscultation Heart-no murmur Abdomen- normal bowel sounds, soft, nontender Extremities- no calf tenderness, erythema in lower extremities improve, + edema, right hip pain Neuro- alert, oriented x 3; PERRL, EOMI; no facial palsy; no dysarthria Skin- warm & dry Results & Data Results & Data ([facility]) Vital Signs (Past 12 Hours) Vital Signs Temp Pulse Pulse Resp BP BP Pulse Ox 05/09/19 11:20 36.5 C 71 18 113/72 95 05/09/19 07:40 36.4 C L 69 20 118/74 98 05/09/19 04:04 60 16 97 05/09/19 03:20 36.4 C L 60 20 114/78 96
--- NOTE | 2019-05-09 15:07 | Consultation ---
Date of Consultation May 09, 2019 Assessment & Plan (1) Peripheral arterial disease: Pt with mild/moderate asymptomatic PAD. Recommend local wound care and abx per wound clinic and ID. Please call if nonhealing wound even with local care and will be happy to reevaluate the pt in office. Patient was seen, examined, and chart reviewed. Agree with exam and treatment plan of the Vascular PA. History of Present Illness Reason for Consultation: LLE ulcer, PAD Attending Physician: Ty Cook MD History of Present Illness 68 yo m with multiple medical problems, including HTN, DMII, CKD, CVA, dyslipidemia, pacemaker, a fib, spinal stenosis, CHF, peripheral neuropathy, admitted with cellulitis of L heel ulcer, seen in consultation today for PAD noted on US. Pt states he developed a wound to L post ankle/heel area d/t shoe or sock rubbing the area. Was taking care of it at home until he noted chills, dizziness, and a fall at home b/c his L ankle felt unstable. He came to [facility] for eval and was noted to have cellulitis of LLE wound. Currently on IV abx and being seen by wound care. Typically ambulates without problems and has chronic edema of BLE. Admits R hip pain from his fall at home. Denies SEXTON, chest pain, SOB, cough, abd pain, N/V, rest pain, claudication, other complaints. Arterial US demonstrates biphasic flow to L foot. Allergies Allergy/AdvReac Type Severity Reaction Status Date / Time No Known Allergies Allergy Verified 05/06/19 12:14 Home Medications Home Medications Medication Instructions Recorded Confirmed Type Flintstones Complete (iron) 1 tab PO PM #0 04/11/13 05/06/19 History atorvastatin 40 mg PO PM #0 tab 01/08/17 05/06/19 History warfarin 4.5 mg PO PM #0 tab 01/08/17 05/06/19 History cholecalciferol (vitamin D3) 1,000 unit PO PM 10/18/17 05/06/19 History [Vitamin D3] aspirin 81 mg PO PM 05/06/19 05/06/19 History cyanocobalamin (vitamin B-12) 1,000 mcg PO PM 05/06/19 05/06/19 History furosemide 20 mg PO SUTUTHSA 05/06/19 05/06/19 History furosemide 40 mg PO MOWEFR 05/06/19 05/06/19 History iron,carbonyl-vitamin C [Vitron-C] 1 tab PO PM 05/06/19 05/06/19 History losartan 50 mg PO PM 05/06/19 05/06/19 History metformin 500 mg PO BID 05/06/19 05/06/19 History tamsulosin 0.4 mg PO PM 05/06/19 05/06/19 History Patient History Medical History (Updated 05/09/19 @ 15:34 by Ty Cook MD) A-fib (Acute) CHF (congestive heart failure) (Chronic) Chronic anemia CKD (chronic kidney disease), stage III CVA (cerebral vascular accident) 01/2018; residual right sided weakness Degenerative disc disease (Chronic) Depression (Chronic) Diabetes mellitus, type II Diabetic foot ulcer associated with type 2 diabetes mellitus Dyslipidemia Hypertension (Chronic) Mixed sleep apnea Pacemaker (Chronic) Peripheral arterial disease Tachy-geronimo syndrome Surgical History Gastric bypass status for obesity Family History Other Cancer Diabetes Hypertension Social History Preferred Language: Sinhala 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 Ability: Effective Direct Chill Caster Required: No Beliefs That Will Affect Care: None marital status: Current Living Situation: Alone and Family Current Living Situation Comment: family live upstairs Other Information That Helps Us Care for You: No Feels Safe at Home: Yes Safety Concerns: Feels Safe At This Time Smoking Status: Never smoker Second Hand Exposure: No ; Hx Alcohol Use: Yes Alcohol Intake Frequency: Holidays/Special Occasions Hx Substance Use: No Review of Systems Review of Systems: All systems reviewed & are unremarkable except as noted in HPI & below Physical Exam Constitutional: WD/WN, vitals as above + morbidly obese, healthy appearing, cooperative and comfortable; not in distress and not combative Eyes: PERRL, conjunctivae normal, anicteric sclerae ENMT: external ear and nose normal, oropharynx normal Ears: no hearing impairment Neck: trachea midline, no thyromegaly Respiratory: normal respiratory effort, lungs clear to auscultation Auscultation: + diminished lung sounds Cardiovascular: Rate/Rhythm: + irregularly irregular Vessels: femoral pulses present, posterior tibial pulses present (doppler), dorsalis pedis pulses present (doppler), brachial pulses present and radial pulses present; + abnormal peripheral pulses Extremities: normal capillary refill, + pedal edema and + edema (+3 RLE, +4 LLE, with stasis dermatitis) Gastrointestinal (Abdomen): normal bowel sounds, soft, nontender, no hepatosplenomegaly Musculoskeletal: no cyanosis or clubbing, extremities motor strength 5/5 Skin: no rashes, warm and dry + wound (L post ankle/achilles, shallow, pink tissue.) Neurologic: moves all extremities; no focal motor deficits and not confused Psychiatric: A+Ox3, euthymic affect Results & Data Vital Signs (Past 12 Hours) Vital Signs Temp Pulse Pulse Resp BP BP Pulse Ox 05/09/19 11:20 36.5 C 71 18 113/72 95 05/09/19 07:40 36.4 C L 69 20 118/74 98 05/09/19 04:04 60 16 97 05/09/19 03:20 36.4 C L 60 20 114/78 96
[2019-05-09] MEDS ORDERED: FUROSEMIDE 20 MG TAB PO ONE (15:20)
[2019-05-09] MEDS ORDERED: ACETAMINOPHEN 325 MG TAB PO PRN (15:51)
[2019-05-09] MEDS: WARFARIN SOD 3 MG TAB PO SCH (16:33)
[2019-05-09] MEDS: LIDOCAINE 5% 1 PATCH TD SCH (17:17)
--- NOTE | 2019-05-09 17:34 | XRay Report ---
XR hip RT min 2V CLINICAL HISTORY: Right hip pain. COMPARISON: Right hip radiographs October 18, 2013. FINDINGS: Alignment of the right hip is anatomic. There is no acute fracture. Note is made of linear sclerosis within the right femoral head. There is mild joint space narrowing and moderate osteophyto sis of the right hip. No suspicious osseous lesion is noted. IMPRESSION: 1. No acute fracture. 2. Moderate right hip osteoarthritis. 3. Linear sclerosis within the right femoral head which raises the possibility of avascular necrosis. ACT 112: Negative or not required by law. Electronically signed by: Jay Carrasco M.D. 05/09/2019 5:33 PM
[2019-05-09] MEDS: DAPTOmycin 400 MG in SYRINGE 0 ML IV SCH (17:43)
[2019-05-09] MEDS: FLINTSTONES COMPLETE CHEWABLE TAB PO SCH (20:43)
[2019-05-09] MEDS: ASPIRIN 81 MG ECTAB PO SCH (20:43)
[2019-05-09] MEDS: CHOLECALCIFEROL 1,000 UNITS 25 MCG TAB PO SCH (20:44)
[2019-05-09] MEDS: CYANOCOBALAMIN 500 MCG TABLET (VITAMIN B-12) PO SCH (20:44)
[2019-05-09] MEDS: TAMSULOSIN HCL 0.4 MG CAP PO SCH (20:45)
[2019-05-09] MEDS: LOSARTAN POTASSIUM 50 MG TAB PO SCH (20:45)
[2019-05-10] MEDS: ACETAMINOPHEN 325 MG TAB PO PRN ×3 (04:14→21:02)
[2019-05-10 06:42] LABS: INR 2.4 (0.9-1.1); Prothrombin Time 24.6 Seconds (9.0-12.0)
[2019-05-10 07:01] LABS: BUN Creatinine Ratio 17.5 (10-20); Calcium 8.3 mg/dl (8.5-10.1); Creatinine Clr Calc Pharmacy 54.5 ml/min; Est GFR (African American) 45.4; Est GFR (Non-African American) 39.2; Potassium 4.5 mmol/L (3.5-5.1)
--- NOTE | 2019-05-10 08:00 | Wound Progress Note ---
Date of Service May 09, 2019 Assessment & Plan (1) Diabetic foot ulcer associated with type 2 diabetes mellitus: Wound bed is improving. Increased drainage likely secondary to increased swelling. No debridement was required. Wound will be dressed with aquacel ag and coban lite wrap. This will changed tomorrow. Patient will need to be seen in office or by home health in 1 week. Will continue to follow. (2) Cellulitis of left lower extremity: Subjective Patient was seen at bedside. Arterial studies were completed and WNL. Patient without new complaints. Review of Systems Review of Systems: All systems reviewed & are unremarkable except as noted in HPI & below Physical Exam Skin: Wound bed with better color. Periwound macerated but intact. There is increased swelling. Patient admits to being up in chair most of day. States his diuretic was also held. Neurologic: awake; not confused Psychiatric: A+Ox3, euthymic affect Results & Data Vital Signs (Past 12 Hours) Vital Signs Temp Pulse Pulse Resp BP BP Pulse Ox 05/10/19 07:52 36.4 C L 60 18 126/75 97 05/10/19 07:08 68 05/10/19 03:15 36.3 C L 63 22 130/78 98 05/10/19 00:11 72 15 96 05/10/19 00:00 61 05/09/19 22:58 36.8 C 56 L 18 115/71 96 PG Care Time/CCT Total # of Minutes Spent Total Time Spent with Patient: Total time spent is greater than 50% in coordination of care (as documented) at patient's floor/unit and/or counseling patient: Coding Level of Care Code 37737 Subseq Hosp Care Lvl 2 Diagnoses Diabetic foot ulcer associated with type 2 diabetes mellitus E11.621; L97.509 Cellulitis of left lower extremity L03.116
[2019-05-10] MEDS: LIDOCAINE 5% 1 PATCH TD SCH (08:16)
[2019-05-10] MEDS: PIPERACILLIN/TAZOBACTAM 4.5 GM in DEXTROSE 5% 100 ML IV SCH (08:20)
[2019-05-10] MEDS: INSULIN ASPART 100 UNITS/ML 3 ML PEN SC SCH ×4 (08:20→20:41)
--- NOTE | 2019-05-10 11:16 | Infectious Disease Progress Nt ---
Date of Service May 10, 2019 Assessment & Plan (1) Cellulitis of left lower extremity: will continue IV abx for now. blood cultures negative, afebrile. would suggest transition to po augmentin 875mg po bid x 14 days upon d/c. Admission and Anticipated Discharge Date Admission Date: May 06, 2019 Subjective pt remains on IV abx. blood cultures negative. wound culture growing gbs. blood cultures remain negative, afebrile. Results & Data ([facility]) Vital Signs (Past 12 Hours) Vital Signs Temp Pulse Pulse Resp BP BP Pulse Ox 05/10/19 07:52 36.4 C L 60 18 126/75 97 05/10/19 07:08 68 05/10/19 03:15 36.3 C L 63 22 130/78 98 05/10/19 00:11 72 15 96 05/10/19 00:00 61 Laboratory Results Microbiology 05/07/19 14:50 Foot,Left Gram Stain - Final 05/07/19 14:50 Foot,Left Wound Culture - Final Group B Beta Strep 05/06/19 15:50 Blood Aerobic Blood Culture - Preliminary No growth in Aerobic bottle after 48 hours. 05/06/19 15:50 Blood Anaerobic Blood Culture - Preliminary No growth in Anaerobic bottle after 48 hours. 05/06/19 15:45 Blood Aerobic Blood Culture - Preliminary No growth in Aerobic bottle after 48 hours. 05/06/19 15:45 Blood Anaerobic Blood Culture - Final 05/06/19 14:20 Urine,Clean Catch Urine Culture - Final Proteus mirabilis PG Care Time/CCT Total # of Minutes Spent Total Time Spent with Patient: Total time spent is greater than 50% in coordination of care (as documented) at patient's floor/unit and/or counseling patient: Coding Level of Care Code 22900 Subseq Hosp Care Lvl 1 Diagnoses Cellulitis of left lower extremity L03.116
--- NOTE | 2019-05-10 13:42 | Hospitalist Progress Note ---
Date of Service May 10, 2019 Assessment & Plan (1) Cellulitis of left lower extremity: Chronic venous insufficiency. Presented with ulcer left posterior heel and associated cellulitis of the left leg. Blood cx no growth Elevated WBC and Procalcitonin Wound cx grew group B beta strep On IV daptomycin and piperacillin/tazobactam. ID on board recommended to continue current abx management for now. Will transition to oral Augmentin tomorrow to complete 14 days course Wound Care Nursing on board Continue wound care (2) Foot ulcer, left: Present on admission with left heel Pressure ulcer, currently unstageable Arterial Doppler showed no arterial occlusion identified. Multifocal blunted monophasic waveforms as above compatible with stenosis related to atherosclerotic vascular disease. Elevated peak systolic velocities in the popliteal artery are also suggestive of vessel stenosis. Wound provider recommended Vascular surgery consult Wound Care Nursing consulted. Case discussed with wound care nurse that recommended to change the compression wrap once weak unless there is increase drainage Follow up with wound care in 1 week (3) Elevated lactic acid level: Serum lactate elevated. Elevated lactate could be secondary to infection and/or metformin therapy. Elevated WBC and procalcitonin Did not meet criteria for sepsis at time of admission. Continue IV dapto and Zosyn Will transition to oral Augmentin for 2 weeks Lactate normalized (4) Hypomagnesemia: Serum magnesium 1.5 at time of admission. Received replacement. Magnesium today = 1.9. Stable (5) Right hip pain: Due to recent fall Will get an xray of the right hip Will add Tylenol prn and lidocaine (6) Hypophosphatemia: Serum phosphorus 1.2 at time of admission. Received replacement. Phosphorus today = 2.8 Stable (7) UTI (urinary tract infection): UA on admission positive for nitrites, leukocyte esterase, 5-10 RBCs, greater than 30 WBCs, greater than 30 epithelial cells, presence of bacteria. Urine culture grew proteus Mirabilis Has been on IV Zosyn since 05/05 Asymptomatic (8) CHF (congestive heart failure): Chronic dependent edema due to venous insufficiency. Echo 12/20/18 showed normal LVEF. Probable chronic left ventricular diastolic CHF. CXR negative for CHF No sign of fluid overdose Continue to hold furosemide due to elevate creatinine. Resume furosemide as necessary. Continue monitor closely (9) Atrial fibrillation: Rate controlled. Continue warfarin with INR 2.4 (10) Hypertension: BP stable Continue losartan with hold parameters. (11) CKD (chronic kidney disease), stage III: History of CKD 3 with recent creatinine between 1.5 and 1.92. Creatinine at time of admission was 2.08. Creatinine improves to 1.7 today Continue furosemide 20mg today Monitor BMP (12) Diabetes mellitus, type II: Most recent Hba1c 7.1 Continue to hold metformin during hospital stay. Hemoglobin A1c 7.1. On Insulin coverage with NovoLog as necessary and Lantus Continue monitor BS (13) Discharge planning issues: Discharge disposition to be determined. Medical follow-up with Dr. Desai. (14) DVT prophylaxis: On warfarin for chronic atrial fibrillation with INR Admission and Anticipated Discharge Date Admission Date: May 06, 2019 Subjective Pt was seems and examined Sitting in bed with no distress Pt said that right hip pain improves with the pain med Denies any chest pain, palpitation, dizziness and SOB Physical Exam Physical Exam: General- No acute distress Head- atraumatic Eyes- PERRL, EOMI, ENT- oropharynx clear Neck- supple, no JVD Lungs- clear to auscultation Heart-no murmur Abdomen- normal bowel sounds, soft, nontender Extremities- no calf tenderness, erythema in lower extremities improve, + edema, right hip pain Neuro- alert, oriented x 3; PERRL, EOMI; no facial palsy; no dysarthria Skin- warm & dry Results & Data Results & Data ([facility]) Vital Signs (Past 12 Hours) Vital Signs Temp Pulse Pulse Resp BP BP Pulse Ox 05/10/19 07:52 36.4 C L 60 18 126/75 97 05/10/19 07:08 68 05/10/19 03:15 36.3 C L 63 22 130/78 98
[2019-05-10] MEDS ORDERED: FUROSEMIDE 20 MG TAB PO ONE (13:58)
[2019-05-10] MEDS: WARFARIN SOD 3 MG TAB PO SCH (16:37)
[2019-05-10] MEDS: AMOXICILLIN/CLAVULANATE 875 MG TAB PO SCH (17:46)
[2019-05-10] MEDS: FLINTSTONES COMPLETE CHEWABLE TAB PO SCH (21:03)
[2019-05-10] MEDS: ASPIRIN 81 MG ECTAB PO SCH (21:03)
[2019-05-10] MEDS: TAMSULOSIN HCL 0.4 MG CAP PO SCH (21:03)
[2019-05-10] MEDS: LOSARTAN POTASSIUM 50 MG TAB PO SCH (21:03)
[2019-05-10] MEDS: CYANOCOBALAMIN 500 MCG TABLET (VITAMIN B-12) PO SCH (21:04)
[2019-05-10] MEDS: CHOLECALCIFEROL 1,000 UNITS 25 MCG TAB PO SCH (21:04)
[2019-05-11 06:29] LABS: INR 2.1 (0.9-1.1); Prothrombin Time 21.4 Seconds (9.0-12.0)
[2019-05-11 06:50] LABS: Est GFR (African American) 54.1; Est GFR (Non-African American) 46.7
[2019-05-11] MEDS: AMOXICILLIN/CLAVULANATE 875 MG TAB PO SCH ×2 (08:10→17:01)
[2019-05-11] MEDS: LIDOCAINE 5% 1 PATCH TD SCH (08:10)
[2019-05-11] MEDS: INSULIN ASPART 100 UNITS/ML 3 ML PEN SC SCH ×4 (08:10→21:14)
[2019-05-11] MEDS ORDERED: FUROSEMIDE 20 MG TAB PO ONE (08:45)
[2019-05-11] MEDS: ACETAMINOPHEN 325 MG TAB PO PRN ×2 (09:15→15:31)
[2019-05-11] MEDS: WARFARIN SOD 3 MG TAB PO SCH (15:31)
--- NOTE | 2019-05-11 15:55 | Hospitalist Progress Note ---
Date of Service May 11, 2019 Assessment & Plan (1) Cellulitis of left lower extremity: Chronic venous insufficiency. Presented with ulcer left posterior heel and associated cellulitis of the left leg. Blood cx no growth Elevated WBC and Procalcitonin Wound cx grew group B beta strep On IV daptomycin and piperacillin/tazobactam. ID on board recommended to continue current abx management for now. Dapto and Zosyn were changed to oral Augmentin 875mg to complete 14 days course as per ID Wound Care Nursing on board Continue wound care (2) Foot ulcer, left: Present on admission with left heel Pressure ulcer, currently unstageable Arterial Doppler showed no arterial occlusion identified. Multifocal blunted monophasic waveforms as above compatible with stenosis related to atherosclerotic vascular disease. Elevated peak systolic velocities in the popliteal artery are also suggestive of vessel stenosis. Wound provider recommended Vascular surgery consult Wound Care Nursing consulted. Case discussed with wound care nurse that recommended to change the compression wrap once weak unless there is increase drainage Follow up with wound care in 1 week (3) Elevated lactic acid level: Serum lactate elevated. Elevated lactate could be secondary to infection and/or metformin therapy. Elevated WBC and procalcitonin Did not meet criteria for sepsis at time of admission. Continue IV dapto and Zosyn Will transition to oral Augmentin for 2 weeks Lactate normalized (4) Hypomagnesemia: Serum magnesium 1.5 at time of admission. Received replacement. Magnesium today = 1.9. Stable (5) Right hip pain: Due to recent fall Right hip xray showed no acute fracture. Moderate right hip osteoarthritis. Linear sclerosis within the right femoral head which raises the possibility of avascular necrosis. Continue Tylenol prn and lidocaine Will recommend outpatient follow up with ortho (6) Hypophosphatemia: Serum phosphorus 1.2 at time of admission. Received replacement. Phosphorus today = 2.8 Stable (7) UTI (urinary tract infection): UA on admission positive for nitrites, leukocyte esterase, 5-10 RBCs, greater than 30 WBCs, greater than 30 epithelial cells, presence of bacteria. Urine culture grew proteus Mirabilis Has been on IV Zosyn since 05/05 Asymptomatic (8) CHF (congestive heart failure): Chronic dependent edema due to venous insufficiency. Echo 12/20/18 showed normal LVEF. Probable chronic left ventricular diastolic CHF. CXR negative for CHF No sign of fluid overdose Continue to hold furosemide due to elevate creatinine. Resume furosemide as necessary. Continue monitor closely (9) Atrial fibrillation: Rate controlled. Continue warfarin with INR 2.1 Follow up with the coag clinic (10) Hypertension: BP stable Continue losartan with hold parameters. (11) CKD (chronic kidney disease), stage III: History of CKD 3 with recent creatinine between 1.5 and 1.92. Creatinine at time of admission was 2.08. Creatinine improves to 1.5 today Continue furosemide 20mg today Monitor BMP (12) Diabetes mellitus, type II: Most recent Hba1c 7.1 Continue to hold metformin during hospital stay. Hemoglobin A1c 7.1. On Insulin coverage with NovoLog as necessary and Lantus Continue monitor BS (13) Unsteady gait: Fall precaution Continue PT/OT Waiting for placement to rehab (14) Discharge planning issues: Waiting for placement to discharge to rehab Medical follow-up with Dr. Desai. (15) DVT prophylaxis: On warfarin for chronic atrial fibrillation with INR Admission and Anticipated Discharge Date Admission Date: May 06, 2019 Subjective Pt was seen and examined Sitting in chair with no distress watching TV Pt said that right hip pain improves Denies any chest pain, palpitation, dizziness and SOB Physical Exam Physical Exam: General- No acute distress Head- atraumatic Eyes- PERRL, EOMI, ENT- oropharynx clear Neck- supple, no JVD Lungs- clear to auscultation Heart-no murmur Abdomen- normal bowel sounds, soft, nontender Extremities- no calf tenderness, erythema in lower extremities improve, + edema, right hip pain Neuro- alert, oriented x 3; PERRL, EOMI; no facial palsy; no dysarthria Skin- warm & dry Results & Data Results & Data ([facility]) Vital Signs (Past 12 Hours) Vital Signs Temp Pulse Pulse Resp BP BP Pulse Ox 05/11/19 14:58 36.5 C 59 L 18 148/83 H 98 05/11/19 11:10 62 05/11/19 11:05 36.7 C 64 18 122/75 98 05/11/19 07:33 36.5 C 62 18 132/73 97 05/11/19 04:04 18 96 05/11/19 03:59 36.5 C 68 20 166/75 H 98
[2019-05-11] MEDS: CYANOCOBALAMIN 500 MCG TABLET (VITAMIN B-12) PO SCH (20:13)
[2019-05-11] MEDS: LOSARTAN POTASSIUM 50 MG TAB PO SCH (20:13)
[2019-05-11] MEDS: TAMSULOSIN HCL 0.4 MG CAP PO SCH (20:13)
[2019-05-11] MEDS: ASPIRIN 81 MG ECTAB PO SCH (20:13)
[2019-05-11] MEDS: FLINTSTONES COMPLETE CHEWABLE TAB PO SCH (20:13)
[2019-05-11] MEDS: CHOLECALCIFEROL 1,000 UNITS 25 MCG TAB PO SCH (20:13)
[2019-05-12] MEDS: ACETAMINOPHEN 325 MG TAB PO PRN ×2 (05:41→16:49)
[2019-05-12 06:27] LABS: INR 1.9 (0.9-1.1); Prothrombin Time 19.5 Seconds (9.0-12.0)
[2019-05-12] MEDS: INSULIN ASPART 100 UNITS/ML 3 ML PEN SC SCH ×4 (08:27→20:41)
[2019-05-12] MEDS: AMOXICILLIN/CLAVULANATE 875 MG TAB PO SCH ×2 (08:27→16:40)
[2019-05-12] MEDS: LIDOCAINE 5% 1 PATCH TD SCH (09:26)
[2019-05-12] MEDS ORDERED: FUROSEMIDE 20 MG TAB PO ONE (13:13)
[2019-05-12] MEDS ORDERED: MICONAZOLE NITRATE POWDER 43 GM EXT PRN (13:56)
--- NOTE | 2019-05-12 14:43 | Hospitalist Progress Note ---
Date of Service May 12, 2019 Assessment & Plan (1) Cellulitis of left lower extremity: Chronic venous insufficiency. Presented with ulcer left posterior heel and associated cellulitis of the left leg. Blood cx no growth Elevated WBC and Procalcitonin Wound cx grew group B beta strep On IV daptomycin and piperacillin/tazobactam. ID on board recommended to continue current abx management for now. Dapto and Zosyn were changed to oral Augmentin 875mg to complete 14 days course as per ID Wound Care Nursing on board Continue wound care (2) Foot ulcer, left: Present on admission with left heel Pressure ulcer, currently unstageable Arterial Doppler showed no arterial occlusion identified. Multifocal blunted monophasic waveforms as above compatible with stenosis related to atherosclerotic vascular disease. Elevated peak systolic velocities in the popliteal artery are also suggestive of vessel stenosis. Wound provider recommended Vascular surgery consult Wound Care Nursing consulted. Case discussed with wound care nurse that recommended to change the compression wrap once weak unless there is increase drainage Follow up with wound care in 1 week (3) Elevated lactic acid level: Serum lactate elevated. Elevated lactate could be secondary to infection and/or metformin therapy. Elevated WBC and procalcitonin Did not meet criteria for sepsis at time of admission. Continue IV dapto and Zosyn Will transition to oral Augmentin for 2 weeks Lactate normalized (4) Hypomagnesemia: Serum magnesium 1.5 at time of admission. Received replacement. Magnesium today = 1.9. Stable (5) Right hip pain: Due to recent fall Right hip xray showed no acute fracture. Moderate right hip osteoarthritis. Linear sclerosis within the right femoral head which raises the possibility of avascular necrosis. Continue Tylenol prn and lidocaine Will recommend outpatient follow up with ortho (6) Hypophosphatemia: Serum phosphorus 1.2 at time of admission. Received replacement. Phosphorus today = 2.8 Stable (7) UTI (urinary tract infection): UA on admission positive for nitrites, leukocyte esterase, 5-10 RBCs, greater than 30 WBCs, greater than 30 epithelial cells, presence of bacteria. Urine culture grew proteus Mirabilis Has been on IV Zosyn since 05/05 Asymptomatic (8) CHF (congestive heart failure): Chronic dependent edema due to venous insufficiency. Echo 12/20/18 showed normal LVEF. Probable chronic left ventricular diastolic CHF. CXR negative for CHF No sign of fluid overdose Resume furosemide as necessary. Continue monitor closely (9) Atrial fibrillation: Rate controlled. Continue warfarin with INR 1.9 today Follow up with the coag clinic (10) Hypertension: BP stable Continue losartan with hold parameters. (11) CKD (chronic kidney disease), stage III: History of CKD 3 with recent creatinine between 1.5 and 1.92. Creatinine at time of admission was 2.08. Creatinine improves to 1.5 today Continue furosemide 20mg today Monitor BMP (12) Diabetes mellitus, type II: Most recent Hba1c 7.1 Continue to hold metformin during hospital stay. Hemoglobin A1c 7.1. On Insulin coverage with NovoLog as necessary and Lantus Continue monitor BS (13) Unsteady gait: Fall precaution Continue PT/OT Waiting for placement to rehab (14) Discharge planning issues: Waiting for placement to discharge to rehab Medical follow-up with Dr. Desai. (15) DVT prophylaxis: On warfarin for chronic atrial fibrillation with INR Admission and Anticipated Discharge Date Admission Date: May 06, 2019 Subjective Pt was seen and examined Sitting in chair with no distress watching TV Pt said that he feels fine Denies any chest pain, palpitation, dizziness and SOB Physical Exam Physical Exam: General- No acute distress Head- atraumatic Eyes- PERRL, EOMI, ENT- oropharynx clear Neck- supple, no JVD Lungs- clear to auscultation Heart-no murmur Abdomen- normal bowel sounds, soft, nontender Extremities- no calf tenderness, erythema in lower extremities improve, + edema, right hip pain Neuro- alert, oriented x 3; PERRL, EOMI; no facial palsy; no dysarthria Skin- warm & dry Results & Data Results & Data ([facility]) Vital Signs (Past 12 Hours) Vital Signs Temp Pulse Pulse Resp BP BP Pulse Ox 05/12/19 07:44 36.4 C L 67 18 124/75 98 05/12/19 07:14 80 05/12/19 03:43 36.4 C L 70 18 160/93 H 96 05/12/19 03:15 60 22 95
[2019-05-12] MEDS: WARFARIN SOD 3 MG TAB PO SCH (16:40)
[2019-05-12] MEDS: LOSARTAN POTASSIUM 50 MG TAB PO SCH (20:40)
[2019-05-12] MEDS: ASPIRIN 81 MG ECTAB PO SCH (20:40)
[2019-05-12] MEDS: FLINTSTONES COMPLETE CHEWABLE TAB PO SCH (20:40)
[2019-05-12] MEDS: TAMSULOSIN HCL 0.4 MG CAP PO SCH (20:41)
[2019-05-12] MEDS: CYANOCOBALAMIN 500 MCG TABLET (VITAMIN B-12) PO SCH (20:42)
[2019-05-12] MEDS: CHOLECALCIFEROL 1,000 UNITS 25 MCG TAB PO SCH (20:43)
[2019-05-13 06:17] LABS: INR 1.6 (0.9-1.1); Prothrombin Time 16.7 Seconds (9.0-12.0)
[2019-05-13] MEDS: INSULIN ASPART 100 UNITS/ML 3 ML PEN SC SCH ×4 (08:26→21:55)
[2019-05-13] MEDS: LIDOCAINE 5% 1 PATCH TD SCH (08:26)
[2019-05-13] MEDS: AMOXICILLIN/CLAVULANATE 875 MG TAB PO SCH ×2 (08:26→16:47)
[2019-05-13] MEDS ORDERED: FUROSEMIDE 40 MG TAB PO ONE (10:28)
[2019-05-13] MEDS: ACETAMINOPHEN 325 MG TAB PO PRN (14:55)
[2019-05-13] MEDS: WARFARIN SOD 3 MG TAB PO SCH (16:47)
--- NOTE | 2019-05-13 18:21 | Hospitalist Progress Note ---
Date of Service May 13, 2019 Assessment & Plan (1) Cellulitis of left lower extremity: Chronic venous insufficiency. Presented with ulcer left posterior heel and associated cellulitis of the left leg. Blood cx no growth Elevated WBC and Procalcitonin Wound cx grew group B beta strep On IV daptomycin and piperacillin/tazobactam. ID on board recommended to continue current abx management for now. Dapto and Zosyn were changed to oral Augmentin 875mg to complete 14 days course as per ID Wound Care Nursing on board Continue wound care (2) Venous insufficiency: (3) Foot ulcer, left: Present on admission with left heel Pressure ulcer, currently unstageable Arterial Doppler showed no arterial occlusion identified. Multifocal blunted monophasic waveforms as above compatible with stenosis related to atherosclerotic vascular disease. Elevated peak systolic velocities in the popliteal artery are also suggestive of vessel stenosis. Wound provider recommended Vascular surgery consult Wound Care Nursing consulted. Case discussed with wound care nurse that recommended to change the compression wrap once weak unless there is increase drainage Follow up with wound care in 1 week AKOSUA checked by wound care nurse was 0.36 in the RLE Case discussed with dr. Cutler today about the AKOSUA Since pt has not ulcer in the RLE, dr Cutler said that no intervention required from vascular standpoint Recommended outpatient follow up and continue to check for ulcer (4) Elevated lactic acid level: Serum lactate elevated. Elevated lactate could be secondary to infection and/or metformin therapy. Elevated WBC and procalcitonin Did not meet criteria for sepsis at time of admission. Continue IV dapto and Zosyn Will transition to oral Augmentin for 2 weeks Lactate normalized (5) Hypomagnesemia: Serum magnesium 1.5 at time of admission. Received replacement. Magnesium today = 1.9. Stable (6) Right hip pain: Due to recent fall Right hip xray showed no acute fracture. Moderate right hip osteoarthritis. Linear sclerosis within the right femoral head which raises the possibility of avascular necrosis. Continue Tylenol prn and lidocaine Will recommend outpatient follow up with ortho (7) Hypophosphatemia: Serum phosphorus 1.2 at time of admission. Received replacement. Phosphorus today = 2.8 Stable (8) UTI (urinary tract infection): UA on admission positive for nitrites, leukocyte esterase, 5-10 RBCs, greater than 30 WBCs, greater than 30 epithelial cells, presence of bacteria. Urine culture grew proteus Mirabilis Has been on IV Zosyn since 05/05 Asymptomatic (9) CHF (congestive heart failure): Chronic dependent edema due to venous insufficiency. Echo 12/20/18 showed normal LVEF. Probable chronic left ventricular diastolic CHF. CXR negative for CHF No sign of fluid overdose Resume furosemide as necessary. Continue monitor closely (10) Atrial fibrillation: Rate controlled. Continue warfarin with INR 1.9 today Follow up with the coag clinic (11) Hypertension: BP stable Continue losartan with hold parameters. (12) CKD (chronic kidney disease), stage III: History of CKD 3 with recent creatinine between 1.5 and 1.92. Creatinine at time of admission was 2.08. Creatinine improves to 1.5 today Continue furosemide 20mg today Monitor BMP (13) Diabetes mellitus, type II: Most recent Hba1c 7.1 Continue to hold metformin during hospital stay. Hemoglobin A1c 7.1. On Insulin coverage with NovoLog as necessary and Lantus Continue monitor BS (14) Unsteady gait: Fall precaution Continue PT/OT Waiting for placement to rehab (15) Discharge planning issues: Waiting for placement to discharge to rehab Medical follow-up with Dr. Desai. (16) DVT prophylaxis: On warfarin for chronic atrial fibrillation with INR Admission and Anticipated Discharge Date Admission Date: May 06, 2019 Subjective Pt was seen and examined Sitting in chair with no distress Pt said that he feels better He said that he walked in the hallway with therapy today He said that he did not have much pain in the right hip today Denies any chest pain, palpitation, dizziness and SOB Physical Exam Physical Exam: General- No acute distress Head- atraumatic Eyes- PERRL, EOMI, ENT- oropharynx clear Neck- supple, no JVD Lungs- clear to auscultation Heart-no murmur Abdomen- normal bowel sounds, soft, nontender Extremities- no calf tenderness, erythema in lower extremities improve, + edema, right hip pain Neuro- alert, oriented x 3; PERRL, EOMI; no facial palsy; no dysarthria Skin- warm & dry, redness in Left LE under the compression wrap Results & Data Results & [facility] ([facility]) Vital Signs (Past 12 Hours) Vital Signs Temp Pulse Pulse Resp BP BP Pulse Ox 05/13/19 16:00 36.7 C 64 18 136/84 95 05/13/19 15:00 64 05/13/19 11:21 36.2 C L 67 18 129/71 97 05/13/19 07:45 36.4 C L 74 18 122/74 97
[2019-05-13] MEDS: TAMSULOSIN HCL 0.4 MG CAP PO SCH (21:19)
[2019-05-13] MEDS: FLINTSTONES COMPLETE CHEWABLE TAB PO SCH (21:19)
[2019-05-13] MEDS: ASPIRIN 81 MG ECTAB PO SCH (21:19)
[2019-05-13] MEDS: CYANOCOBALAMIN 500 MCG TABLET (VITAMIN B-12) PO SCH (21:20)
[2019-05-13] MEDS: CHOLECALCIFEROL 1,000 UNITS 25 MCG TAB PO SCH (21:20)
[2019-05-13] MEDS: LOSARTAN POTASSIUM 50 MG TAB PO SCH (21:20)
[2019-05-14] MEDS: ACETAMINOPHEN 325 MG TAB PO PRN (04:02)
[2019-05-14 05:46] LABS: INR 1.5 (0.9-1.1); Prothrombin Time 15.5 Seconds (9.0-12.0)
[2019-05-14] MEDS: AMOXICILLIN/CLAVULANATE 875 MG TAB PO SCH ×2 (08:27→17:13)
[2019-05-14] MEDS: INSULIN ASPART 100 UNITS/ML 3 ML PEN SC SCH ×4 (08:27→20:26)
[2019-05-14] MEDS: LIDOCAINE 5% 1 PATCH TD SCH (08:27)
[2019-05-14] MEDS ORDERED: FUROSEMIDE 40 MG TAB PO ONE (08:38)
[2019-05-14] MEDS: HEPARIN SOD 5,000 UNIT/0.5 ML VIAL SQ SCH ×2 (09:17→20:23)
--- NOTE | 2019-05-14 12:32 | Hospitalist Progress Note ---
Date of Service May 14, 2019 Assessment & Plan (1) Cellulitis of left lower extremity: Chronic venous insufficiency. Presented with ulcer left posterior heel and associated cellulitis of the left leg. Blood cx no growth Elevated WBC and Procalcitonin Wound cx grew group B beta strep On IV daptomycin and piperacillin/tazobactam. ID on board recommended to continue current abx management for now. Dapto and Zosyn were changed to oral Augmentin 875mg to complete 14 days course as per ID Wound Care Nursing on board Continue wound care LLE erythema under the compression wrap only Possible related due to the compression No tenderness or feel warm on exam Compression wrap removed yesterday Erythema seems to improves lightly Continue monitor closely and seek medical help if worsening (2) Venous insufficiency: (3) Foot ulcer, left: Present on admission with left heel Pressure ulcer, currently unstageable Arterial Doppler showed no arterial occlusion identified. Multifocal blunted monophasic waveforms as above compatible with stenosis related to atherosclerotic vascular disease. Elevated peak systolic velocities in the popliteal artery are also suggestive of vessel stenosis. Wound provider recommended Vascular surgery consult Wound Care Nursing consulted. Case discussed with wound care nurse that recommended to change the compression wrap once weak unless there is increase drainage Follow up with wound care in 1 week AKOSUA checked by wound care nurse was 0.36 in the RLE Case discussed with dr. Cutler about the AKOSUA result Since pt has no ulcer in the RLE, dr Cutler said that no intervention required at this time from vascular standpoint Recommended outpatient follow up and continue to check for ulcer (4) Elevated lactic acid level: Serum lactate elevated. Elevated lactate could be secondary to infection and/or metformin therapy. Elevated WBC and procalcitonin Did not meet criteria for sepsis at time of admission. Continue IV dapto and Zosyn Will transition to oral Augmentin for 2 weeks Lactate normalized (5) Hypomagnesemia: Serum magnesium 1.5 at time of admission. Received replacement. Stable (6) Right hip pain: Due to recent fall Right hip xray showed no acute fracture. Moderate right hip osteoarthritis. Linear sclerosis within the right femoral head which raises the possibility of avascular necrosis. Continue Tylenol prn and lidocaine Will recommend outpatient follow up with ortho (7) Hypophosphatemia: Serum phosphorus 1.2 at time of admission. Received replacement. Stable (8) UTI (urinary tract infection): UA on admission positive for nitrites, leukocyte esterase, 5-10 RBCs, greater than 30 WBCs, greater than 30 epithelial cells, presence of bacteria. Urine culture grew proteus Mirabilis Has been on IV Zosyn since 05/05 Asymptomatic (9) CHF (congestive heart failure): Chronic dependent edema due to venous insufficiency. Echo 12/20/18 showed normal LVEF. Probable chronic left ventricular diastolic CHF. CXR negative for CHF No sign of fluid overdose Resume furosemide as necessary. Continue monitor closely (10) Atrial fibrillation: Rate controlled. Warfarin increased to 4 mg, INR 1.5 today Follow up with the coag clinic (11) Hypertension: BP stable Continue losartan with hold parameters. (12) CKD (chronic kidney disease), stage III: History of CKD 3 with recent creatinine between 1.5 and 1.92. Creatinine at time of admission was 2.08. Creatinine improves to 1.5 today Continue furosemide 20mg today Monitor BMP (13) Diabetes mellitus, type II: Most recent Hba1c 7.1 Continue to hold metformin during hospital stay. Hemoglobin A1c 7.1. On Insulin coverage with NovoLog as necessary and Lantus Continue monitor BS (14) Unsteady gait: Fall precaution Continue PT/OT Plan to go to [facility] today (15) Discharge planning issues: Waiting for placement to discharge to rehab Medical follow-up with Dr. Desai. (16) DVT prophylaxis: On warfarin for chronic atrial fibrillation with INR Heparin subq added Admission and Anticipated Discharge Date Admission Date: May 06, 2019 Subjective Pt was seen and examined Sitting in chair with no distress Pt said that the redness in the left lower extremity seem to fade color a little He said that he feels ok Pain improves in the right hip Denies any fever, chills, SOB, chest pain and palpitation Physical Exam Physical Exam: General- No acute distress Head- atraumatic Eyes- PERRL, EOMI, ENT- oropharynx clear Neck- supple, no JVD Lungs- clear to auscultation Heart-no murmur Abdomen- normal bowel sounds, soft, nontender Extremities- no calf tenderness, erythema in lower extremities improve, + edema, right hip pain Neuro- alert, oriented x 3; PERRL, EOMI; no facial palsy; no dysarthria Skin- warm & dry, redness slightly improved in Left LE under the compression wrap Results & Data Results & [facility] ([facility]) Vital Signs (Past 12 Hours) Vital Signs Temp Pulse Resp BP BP Pulse Ox 05/14/19 11:05 36.2 C L 67 18 124/66 98 05/14/19 07:33 36.4 C L 60 18 104/63 98 05/14/19 04:13 36.3 C L 05/14/19 03:51 35.9 C L 62 18 133/75 98
[2019-05-14] MEDS ORDERED: WARFARIN SOD 4 MG TAB PO SCH (16:00)
[2019-05-14] MEDS: ASPIRIN 81 MG ECTAB PO SCH (20:22)
[2019-05-14] MEDS: LOSARTAN POTASSIUM 50 MG TAB PO SCH (20:22)
[2019-05-14] MEDS: FLINTSTONES COMPLETE CHEWABLE TAB PO SCH (20:22)
[2019-05-14] MEDS: CYANOCOBALAMIN 500 MCG TABLET (VITAMIN B-12) PO SCH (20:24)
[2019-05-14] MEDS: TAMSULOSIN HCL 0.4 MG CAP PO SCH (20:24)
[2019-05-14] MEDS: CHOLECALCIFEROL 1,000 UNITS 25 MCG TAB PO SCH (20:24)
[2019-05-15 07:31] LABS: INR 1.3 (0.9-1.1); Prothrombin Time 13.9 Seconds (9.0-12.0)
[2019-05-15 07:42] LABS: BUN Creatinine Ratio 20.1 (10-20); Calcium 8.7 mg/dl (8.5-10.1); Creatinine Clr Calc Pharmacy 69.4 ml/min; Est GFR (African American) 61.9; Est GFR (Non-African American) 53.4; Potassium 4.4 mmol/L (3.5-5.1)
[2019-05-15] MEDS: AMOXICILLIN/CLAVULANATE 875 MG TAB PO SCH (08:17)
[2019-05-15] MEDS: HEPARIN SOD 5,000 UNIT/0.5 ML VIAL SQ SCH (08:17)
[2019-05-15] MEDS: LIDOCAINE 5% 1 PATCH TD SCH (08:17)
[2019-05-15] MEDS: INSULIN ASPART 100 UNITS/ML 3 ML PEN SC SCH ×2 (08:17→12:13)
--- NOTE | 2019-05-15 11:34 | Discharge Summary ---
Date of Service May 15, 2019 Admission HPI Per Admitting Provider Pt is 68 y/o M with PMH DM II, chronic A. 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 Patient states last night was getting ready for bed when he had onset of dizziness, had one episode of dry heaves and one loose BM and had chills. Patient states had difficulty sleeping last night. He did not take his temperature. Patient states this morning he got up out of bed and felt dizzy and was ambulating to bathroom using his cane when his cane slipped causing patient to lose balance and fell backwards. Patient denies any LOC. Complaining of some neck stiffness and aching. Patient denies any shortness of breath, chest pain, palpitations prior to fall. He also reports noticed a ulcer to his left posterior calcaneus several weeks ago and has been applying Band-Aids to the area. Patient denies any noted discharge. He reports he believes this ulcer started secondary to his compression hose being bunched up. Past couple days has noticed increased redness to left lower leg with left lower leg tenderness and warmth. Patient reports chronic back pain denies any increased pain. Denies any abdominal pain, dysuria, hematuria, urinary frequency. Denies ill contacts, recent travel. Denies diaphoresis, SEXTON, vision changes,CP, SOB, orthopnea, palpitations, cough, sore throat, choking, otalgia, rhinorrhea, increased or changing paresthesias, increased extremity edema. Admission Exam Per Admitting Provider General: no acute distress, ill appearing Head: normocephalic, atraumatic Eyes: PERRL, EOM's intact, conjunctiva non-injected, anicteric ENT: normal inspection external ears, nose, mucous membranes dry Neck: supple, trachea midline, mild tenderness to palpation right paraspinous muscles Lungs: clear, no respiratory distress, no wheezing/rhonchi/rales CV: irregularly irregular, no murmur Abd: normal BS, soft, non-tender Back: no spinous process tenderness to palpation, No CVA tenderness to palpation Ext: BLE with venous stasis skin changes, thickened toenails throughout, +dry flaky skin; LLE: posterior calcaneus with ulcer without discharge with surrounding erythema, +warmth, redness and tenderness to lower leg; sensation to light touch intact Neuro: A&O x 3, chronic right arm and leg weakness, no other focal deficits noted, normal affect Skin: warm, dry; +abrasions to right dorsal hand, +abrasion to right scapula, see above in extremities Principal Diagnosis Cellulitis of left lower extremity Venous insufficiency: Foot ulcer, left: Hypomagnesemia: Right hip pain: Hypophosphatemia: UTI (urinary tract infection): CHF (congestive heart failure): Atrial fibrillation: Hypertension: CKD (chronic kidney disease), stage III: Diabetes mellitus, type II: Unsteady gait: Discharge Exam Physical Exam Gen-AAO x 3, NAD, Afebrile Head-NCAT, EOMI, PERRLA, Anicteric Sclera, No Posterior Pharyngeal Erythema Neck-Supple, No JVD, No Thyromegaly, No Masses, No LAD, No Bruits Lungs-Clear to Auscultation Bilaterally, No Rales, No Rhonchi, No Wheezing, No Crepitus Chest-No S4, +S1, +S2, No S3, No Murmurs, No Rubs, No Gallops, No Ectopy Abdomen-Soft, Bowel Sounds Present, Non Tender, Non Distended, No Hepatomegaly, No Splenomegaly, No Palpable Masses, No Rebound, No Rigidity, No Guarding Musculoskeletal-Full Range of Motion Bilaterally, No CVAT Extremities-+Erythema and edema L>R Much better per patient Nuero-Cranial Nerves II-XII grossly intact, Motor WNL, DTRs WNL, Strength WNL, Non Focal Psych-Normal Mood Discharge Data Allergies Allergy/AdvReac Type Severity Reaction Status Date / Time No Known Allergies Allergy Verified 05/06/19 12:14 Consultations 05/06/19 15:28 ED Decision to Admit Stat 05/06/19 18:10 Consult Case Management - Discharge Planning Routine Consult Infectious Diseases Routine Consult Wound Care Provider Routine 05/08/19 14:54 Consult Vascular Surgery Routine Ordered Studies 05/06/19 12:07 CT head/brain wo con Stat 05/06/19 16:53 CT cervical spine wo con Stat 05/07/19 15:17 US arterial duplex LE LT Routine 05/15/19 05/15/19 05/15/19 Range/Units 07:29 06:38 06:38 PT 13.9 H (9.0-12.0) Seconds INR 1.3 H (0.9-1.1) Sodium 137 (136-145) mmol/L Potassium 4.4 (3.5-5.1) mmol/L Chloride 109 H (98-107) mmol/L Carbon Dioxide 24 (21-32) mmol/L Anion Gap 4.0 (3-11) BUN 28 H (7-18) mg/dl Creatinine 1.37 (0.6-1.4) mg/dl Est Cr Clr Drug Dosing 69.4 ml/min Est GFR ( Amer) 61.9 Est GFR (Non-Af Amer) 53.4 BUN/Creatinine Ratio 20.1 H (10-20) Glucose 116 H (70-99) mg/dl POC Glucose 127 H (70-99) mg/dl Calcium 8.7 (8.5-10.1) mg/dl 05/14/19 05/14/19 05/14/19 Range/Units 19:54 16:33 11:44 PT (9.0-12.0) Seconds INR (0.9-1.1) Sodium (136-145) mmol/L Potassium (3.5-5.1) mmol/L Chloride (98-107) mmol/L Carbon Dioxide (21-32) mmol/L Anion Gap (3-11) BUN (7-18) mg/dl Creatinine (0.6-1.4) mg/dl Est Cr Clr Drug Dosing ml/min Est GFR ( Amer) Est GFR (Non-Af Amer) BUN/Creatinine Ratio (10-20) Glucose (70-99) mg/dl POC Glucose 111 H 96 120 H (70-99) mg/dl Calcium (8.5-10.1) mg/dl Hospital Course (1) Cellulitis of left lower extremity: Chronic venous insufficiency. Presented with ulcer left posterior heel and associated cellulitis of the left leg. Blood cx no growth Elevated WBC and Procalcitonin Wound cx grew group B beta strep On IV daptomycin and piperacillin/tazobactam. ID on board recommended oral Augmentin 875mg to complete 14 days course Wound Care Nursing on board Continue wound care LLE erythema under the compression wrap only Possible related due to the compression No tenderness or feel warm on exam Compression wrap removed yesterday Erythema seems to improves lightly Continue monitor closely and seek medical help if worsening (2) Venous insufficiency: (3) Foot ulcer, left: Present on admission with left heel Pressure ulcer, currently unstageable Arterial Doppler showed no arterial occlusion identified. Multifocal blunted monophasic waveforms as above compatible with stenosis related to atherosclerotic vascular disease. Elevated peak systolic velocities in the popliteal artery are also suggestive of vessel stenosis. Wound provider recommended Vascular surgery consult Wound Care Nursing consulted. Case discussed with wound care nurse that recommended to change the compression wrap once weak unless there is increase drainage Follow up with wound care in 1 week AKOSUA checked by wound care nurse was 0.36 in the RLE Case discussed with dr. Cutler about the AKOSUA result Since pt has no ulcer in the RLE, dr Cutler said that no intervention required at this time from vascular standpoint Recommended outpatient follow up and continue to check for ulcer (4) Elevated lactic acid level: Serum lactate elevated. Elevated lactate could be secondary to infection and/or metformin therapy. Elevated WBC and procalcitonin Did not meet criteria for sepsis at time of admission. Augmentin for 2 weeks Lactate normalized (5) Hypomagnesemia: Serum magnesium 1.5 at time of admission. Received replacement. Stable (6) Right hip pain: Due to recent fall Right hip xray showed no acute fracture. Moderate right hip osteoarthritis. Linear sclerosis within the right femoral head which raises the possibility of avascular necrosis. Continue Tylenol prn and lidocaine Will recommend outpatient follow up with ortho (7) Hypophosphatemia: Serum phosphorus 1.2 at time of admission. Received replacement. Stable (8) UTI (urinary tract infection): UA on admission positive for nitrites, leukocyte esterase, 5-10 RBCs, greater than 30 WBCs, greater than 30 epithelial cells, presence of bacteria. Urine culture grew proteus Mirabilis Has been on IV Zosyn since 05/05 Asymptomatic (9) CHF (congestive heart failure): Chronic dependent edema due to venous insufficiency. Echo 12/20/18 showed normal LVEF. Probable chronic left ventricular diastolic CHF. CXR negative for CHF No sign of fluid overdose Resume furosemide as necessary. Continue monitor closely (10) Atrial fibrillation: Rate controlled. Warfarin Follow up with the coag clinic (11) Hypertension: BP stable Continue losartan with hold parameters. (12) CKD (chronic kidney disease), stage III: History of CKD 3 with recent creatinine between 1.5 and 1.92. Creatinine at time of admission was 2.08. Creatinine improves to 1.5 today Continue furosemide 20mg today Monitor BMP (13) Diabetes mellitus, type II: Most recent Hba1c 7.1 Continue to hold metformin during hospital stay. Hemoglobin A1c 7.1. On Insulin coverage with NovoLog as necessary and Lantus Continue monitor BS (14) Unsteady gait: Fall precaution Continue PT/OT Plan to go to [facility] today (15) Discharge planning issues: Waiting for placement to discharge to rehab Medical follow-up with Dr. Desai. (16) DVT prophylaxis: On warfarin for chronic atrial fibrillation with INR Heparin subq added Total Time Total Time Spent Total Time Spent (In Minutes): 45 mins Total Time Includes: Examination of the Patient, Discharge Planning, Medication Reconciliation and 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 With Other Providers Discharge Plan Discharge Items Patient Disposition: Home - Home Health Services Reason For Visit: [facility] Discharge Diagnosis: Cellulitis of left lower extremity Venous insufficiency: Foot ulcer, left: Hypomagnesemia: Right hip pain: Hypophosphatemia: UTI (urinary tract infection): CHF (congestive heart failure): Atrial fibrillation: Hypertension: CKD (chronic kidney disease), stage III: Diabetes mellitus, type II: Unsteady gait: Condition on Discharge: Good Health Concerns: Healing Wounds and Cellulitis resolution Activity: Resume your previous activity Lifting: Gradually increase as tolerated Exercise/Sports: Gradually increase as tolerated Driving/Machine Use: No limitations Weightbearing: Full weightbearing Non-emergency contact: Primary Care Provider Call non-emergency contact if: you have any medication questions and your temperature is above 101 Follow-up/Referrals: Jocelyne Desai DO [Primary Care Provider] - Diet: Heart Healthy Addtl Attending Provider Instructions: Follow up with your primary care provider once discharge from [facility] Follow up with vascular surgery Dr. Cutler (Please call to schedule for the appointment) Continue physical and occupational therapy Follow up with the coumadin clinic to monitor PT/INR Follow with wound care clinic in 1 week (please call [phone] to schedule for the appointment) Complete the course of the antibiotic with augmentin Fall precaution Check BMP in 1 week to monitor renal function Wound care recommendation: Apply Aquacel ag, cover with optifoam, chaneg every 3 days and as needed. Keep [address] and encourage patient to keep legs elevated throughout the day Pending Studies at Discharge: No Stand-Alone Forms: [facility], Smoking Cessation Medications and DC Order Prescriptions: New amoxicillin-pot clavulanate [Augmentin] 875-125 mg Tablet 1 tab PO BIDM Qty: 28 RF: 0 Continued Flintstones Complete (iron) Tablet,Chewable 1 tab PO PM Qty: 0 RF: 0 atorvastatin 40 mg Tablet 40 mg PO PM Qty: 0 RF: 0 warfarin 3 mg Tablet 4.5 mg PO PM Qty: 0 RF: 0 cholecalciferol (vitamin D3) [Vitamin D3] 1,000 unit Capsule 1,000 unit PO PM RF: 0 tamsulosin 0.4 mg Capsule 0.4 mg PO PM RF: 0 losartan 25 mg Tablet 50 mg PO PM RF: 0 aspirin 81 mg Tablet,Chewable 81 mg PO PM RF: 0 Vitron-C 65 mg iron- 125 mg Tablet,Delayed Release (Dr/Ec) 1 tab PO PM RF: 0 cyanocobalamin (vitamin B-12) 1,000 mcg Tablet 1,000 mcg PO PM RF: 0 furosemide 20 mg tablet 40 mg PO MOWEFR RF: 0 furosemide 20 mg tablet 20 mg PO SUTUTHSA RF: 0 Discontinued metformin 500 mg tablet 500 mg PO BID RF: 0 Discharge Orders: Discharge Order (Routine); Ordered 05/15/19 Ordered By: Joseph Barbosa/Other Patient Handouts: Diabetes Type 2 Managing, Diabetes Healthy Meals, Diabetes Meal Planning Admission Data Admit Date/Time: 05/06/19 16:16 Attending Provider: Joseph Lizama Admit Provider: Kaiden Munson Primary Care Provider: Jocelyne Desai Other Providers: Kaiden Munson ; Estefania Blum ; Rod Sanchez ; Ac Cutler ; [facility] Other Interventions: Discharge Summary Assessment (RN) Last Done: 05/15/19 13:47
== END 2019-05-15 15:22 | disposition home health service (06) | DRG 638 ==
LOC: ED 11:34 → SUATTDRO 16:16 → 2N 16:16

== ENCOUNTER 2020-08-11 16:48 | Inpatient (IN) ==
[2020-08-11] MEDS ORDERED: PIPERACILLIN/TAZOBACTAM 4.5 GM/120 ML BAG IV ONE (17:37)
[2020-08-11] MEDS ORDERED: PIPERACILL/TAZOBAC CONSULT ACTIVE PRN (17:37)
--- NOTE | 2020-08-11 17:43 | Emergency Department Note ---
Impression & Plan Necrotizing fasciitis, Leukocytosis, Cellulitis of right foot, Fever ED Provider Note NAME: RANI CHRISTIAN AGE: 70 SEX: M : 1950 ARRIVES VIA: Walk-In INFORMANT: [Patient] ED PROVIDER(S): [River Humphries MD] CHIEF COMPLAINT: Foot infection HISTORY OF PRESENT ILLNESS: The patient is a 70-year-old male who states he noticed a small ulcer on his right great toe a few weeks ago. He was caring for it with some cream that he had been given from the wound center. He states that over the weekend, the area got more erythematous and swollen. Today, it became quite red. Home health evaluated the foot today and were worried about cellulitis. By report, there were some maggots in the wound. The patient had chills over the weekend, none today. There has been no documented fever. He has had no cough or congestion or shortness of breath. The patient states he does have issues with cellulitis. He has had cellulitis before. He is a diabetic. REVIEW OF SYSTEMS: See HPI for pertinent positives and negatives. A total of ten systems were reviewed and were otherwise negative. PMHx/PSHx: See Below SOCIAL HISTORY: See Below. PHYSICAL EXAM: GENERAL: Patient is in no acute distress. HEENT: No acute trauma, normocephalic atraumatic, mucous membranes moist, no nasal congestion, no scleral icterus. NECK: No stridor, no adenopathy, no meningismus, trachea is midline. LUNGS: Clear to auscultation bilaterally, no wheeze, no rhonchi, breath sounds equal. HEART: Without murmurs gallops or rubs, regular rate and rhythm. ABDOMEN: Soft, nontender, bowel sounds positive, no hernias, no peritonitis. EXTREMITIES: No cyanosis. The patient does have bilateral pedal edema, worse on the right. There is right foot erythema that extends up the ankle and distal leg. There is warmth present. The patient has ulcers about the right first toe. There is a foul odor to the foot. Between the fourth and fifth toes, I removed 3 maggots. NEUROLOGIC: Oriented x 3, no acute motor or sensory deficits, no focal weakness. SKIN: No jaundice, no diaphoresis. DIFFERENTIAL DIAGNOSIS: Sepsis, UTI, pneumonia, metabolic abnormality, electrolyte abnormalities, osteomyelitis, COVID-19, cardiac sources, cellulitis, UTI, bacteremia, intr acerebral event, toxicologic etiology, neurologic event, as well as other pathologies. EMERGENCY DEPARTMENT COURSE/PROCEDURES: ECG: Indication was possible sepsis. The ECG shows a ventricular pacemaker with a rate of 61. There is no worrisome ST elevation, there are no PVCs. The QTc is 505. Continuous Cardiac Monitoring: An order was placed for continuous cardiac monitoring. The monitor shows a rate of 72 with a ventricular pacemaker. Critical Care Note: I have personally spent 48 minutes of critical care time in the direct management of this patient. This includes bedside care, interpretation of diagnostic studies, and testing, discussion with consultants, patient, and family members, and other required patient management activities. This 48 minutes is in excess of all separately billable procedures. MEDICAL DECISION MAKING: There is a mild leukocytosis which would be consistent with infection. There is no anemia. There is a normal platelet count. INR was elevated at 2.8, consistent with Coumadin use. There was evidence for renal insufficiency but this appears baseline when looking back at previous testing. Lactic acid level was not elevated making severe sepsis less likely. There were some subtle liver enzyme elevations noted. Urinalysis shows contamination versus infection. Covid testing returned negative. Chest film did not show pneumonia or CHF. Right foot CT scan shows cellulitis and necrotizing fasciitis. The most significant infection was located in the toes. On exam, the patient's right foot had a foul odor, I did have to remove some maggots from the wound. The patient was aggressively managed given his findings. He was given IV saline, 1 L. He received IV Zosyn, IV clindamycin and IV daptomycin. The patient is aware of his findings, this infection is quite serious. I did speak with case management. I spoke with the on-call hospitalist. The hospitalist was able to talk with orthopedic surgery and, it was felt the patient could stay here for this infection. He is likely going to require OR intervention. Past Med/Surg History Medical History Acute renal failure superimposed on stage 3 chronic kidney disease Atrial fibrillation Cellulitis of left lower extremity CHF (congestive heart failure) Chronic anemia CKD (chronic kidney disease), stage III CVA (cerebral vascular accident) 01/2018; residual right sided weakness Degenerative disc disease Depression Diabetes type 2, controlled Diabetic peripheral neuropathy associated with type 2 diabetes mellitus Dyslipidemia Hypertension Hypomagnesemia Hypophosphatemia Mixed sleep apnea Pacemaker Peripheral arterial disease Personal history of diabetic foot ulcer Pseudomonas infection Sepsis (10/25/13) Tachy-geronimo syndrome Surgical History Gastric bypass status for obesity Family History Other Cancer Diabetes Hypertension Social History Smoking Status: Never smoker Second Hand Exposure: No; Do You Dip or Chew Tobacco: No; Hx Alcohol Use: Yes Hx Substance Use: No Preferred Language: Chinese 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 Ability: Effective Radiology Tech Required: No Beliefs That Will Affect Care: None marital status: Current Living Situation: Alone and Family Current Living Situation Comment: DAUGHTER LIVES UPSTAIRS Other Information That Helps Us Care for You: No Feels Safe at Home: Yes Safety Concerns: Feels Safe At This Time Assistive Devices: BiPap, Denture - Upper, Glasses, Oxygen - at Night and Walker Allergies Allergies Allergy/AdvReac Type Severity Reaction Status Date / Time No Known Allergies Allergy Verified 08/11/20 18:49 Home Meds Home Medications Medication Instructions Recorded Confirmed Flintstones Complete (iron) 1 tab PO PM #0 04/11/13 08/11/20 atorvastatin 40 mg PO PM #0 tab 01/08/17 08/11/20 warfarin 3 mg MOWEFR #0 tab 01/08/17 08/11/20 cholecalciferol (vitamin D3) 2,000 unit PO PM 10/18/17 08/11/20 [Vitamin D3] cyanocobalamin (vitamin B-12) 1,000 mcg PO PM 05/06/19 08/11/20 furosemide 20 mg PO MOWEFR 05/06/19 08/11/20 furosemide 40 mg PO SUTUTHSA 05/06/19 08/11/20 tamsulosin 0.4 mg PO PM 05/06/19 08/11/20 magnesium oxide 400 mg PO BID 09/26/19 08/11/20 Jardiance 10 mg PO DAILY 11/04/19 08/11/20 betamethasone dipropionate 1 applic TOPICAL DAILY PRN 11/04/19 08/11/20 warfarin 1.5 mg PO SUTUTHSA 11/04/19 08/11/20 aspirin 81 mg PO QPM 08/11/20 08/11/20 doxycycline hyclate 100 mg PO BID 08/11/20 08/11/20 losartan 50 mg PO HS 08/11/20 08/11/20 triamcinolone acetonide 1 applic TOPICAL BID 08/11/20 08/11/20 [Aristocort] Results & Data (ED) Vital Signs Vital Signs - 24 hr 08/11/20 16:53 08/11/20 17:11 08/11/20 17:15 Temperature 37.6 C H Temperature Source Temporal Artery Scan Pulse Rate 72 61 62 Respiratory Rate 18 25 H 18 Respiratory Effort / Characteristics Non-Labored Respiratory Depth Normal Respiratory Pattern Regular Blood Pressure 125/77 Blood Pressure Mean 93 Blood Pressure Position Sitting Pulse Oximetry 95 Oxygen Delivery Method Room Air Sepsis Recent Fever Within 48 Hours No Sepsis New/Unexplained Change in Mental Status No Sepsis Action Taken by Nursing No Action Required 08/11/20 17:30 08/11/20 17:38 08/11/20 17:45 Temperature Temperature Source Pulse Rate 60 70 61 Respiratory Rate 33 H 14 27 H Respiratory Effort / Characteristics Respiratory Depth Normal Respiratory Pattern Blood Pressure Blood Pressure Mean Blood Pressure Position Pulse Oximetry 95 Oxygen Delivery Method Room Air Sepsis Recent Fever Within 48 Hours Sepsis New/Unexplained Change in Mental Status Sepsis Action Taken by Nursing 08/11/20 18:00 08/11/20 18:15 08/11/20 18:30 Temperature Temperature Source Pulse Rate 61 60 61 Respiratory Rate 20 35 H 23 Respiratory Effort / Characteristics Respiratory Depth Respiratory Pattern Blood Pressure Blood Pressure Mean Blood Pressure Position Pulse Oximetry Oxygen Delivery Method Sepsis Recent Fever Within 48 Hours Sepsis New/Unexplained Change in Mental Status Sepsis Action Taken by [facility] Medications Current Medication List: was personally reviewed by me Laboratory Data Attestation: I reviewed the patient's lab results. Result diagrams: 08/11/20 17:33 08/11/20 17:33 Lab Results 08/11/20 08/11/20 08/11/20 Range/Units 17:11 17:33 17:33 WBC 11.03 H (4.8-10.8) K/uL RBC 4.93 (4.7-6.1) M/uL Hgb 15.4 (14.0-18.0) g/dL Hct 44.2 (42-52) % MCV 89.7 (80-100) fL MCH 31.2 (25-34) pg MCHC 34.8 (32-36) g/dL RDW Std Deviation 47.4 H (36.4-46.3) fL RDW Coeff of Jason 14.4 (11.5-14.5) % Plt Count 166 (130-400) K/uL MPV 10.8 H (7.4-10.4) fL Immature Gran % (Auto) 0.3 % Neut % (Auto) 86.0 % Lymph % (Auto) 4.6 % Dade % (Auto) 8.8 % Eos % (Auto) 0.2 % Baso % (Auto) 0.1 % Neut # (Auto) 9.49 H (1.4-6.5) K/uL Lymph # (Auto) 0.51 L (1.2-3.4) K/uL Dade # (Auto) 0.97 H (0.11-0.59) K/uL Eos # (Auto) 0.02 (0-0.5) K/uL Baso # (Auto) 0.01 (0-0.2) K/uL Immature Gran # (Auto) 0.03 H (0.00-0.02) K/uL ESR (0-20) mm/hr PT (9.0-12.0) Seconds INR (0.9-1.1) APTT (21.0-31.0) Seconds PTT Ratio Sodium (136-145) mmol/L Potassium (3.5-5.1) mmol/L Chloride (98-107) mmol/L Carbon Dioxide (21-32) mmol/L Anion Gap (3-11) BUN (7-18) mg/dl Creatinine (0.6-1.4) mg/dl Est Cr Clr Drug Dosing ml/min Est GFR ( Amer) ml/min Est GFR (Non-Af Amer) ml/min BUN/Creatinine Ratio (10-20) Glucose (70-99) mg/dl Lactate (0.4-2.0) mmol/L Calcium (8.5-10.1) mg/dl Magnesium (1.8-2.4) mg/dl Total Bilirubin (0.2-1) mg/dl AST (15-37) U/L ALT (12-78) U/L Alkaline Phosphatase (45-117) U/L C-Reactive Protein (0-0.29) mg/dl Total Protein (6.4-8.2) gm/dl Albumin (3.4-5.0) gm/dl Globulin (2.5-4.0) gm/dl Albumin/Globulin Ratio (0.9-2) Procalcitonin 0.29 (0-0.5) ng/ml Urine Color Dark Yellow Urine Appearance Cloudy A (Clear) Urine pH 5.0 (4.5-7.5) Ur Specific [employer] 1.028 (1.000-1.030) Urine Protein 3+ H (Negative) Urine Glucose (UA) 3+ H (Negative) Urine Ketones Trace H (Negative) Urine Blood 2+ H (Negative) Urine Nitrite Negative (Negative) Urine Bilirubin 1+ H (Negative) Urine Urobilinogen Negative (Negative) Ur Leukocyte Esterase 1+ H (Negative) Urine WBC (Auto) >30 H (0-5) /hpf Urine RBC (Auto) 0-4 (0-4) /hpf U Hyaline Cast (Auto) 1-5 (0-5) /lpf U Epithel Cells (Auto) >30 H (0-5) /lpf Urine Bacteria (Auto) 4+ H (Negative) Urine Yeast Not Reportable COVID-19 Eval Order SARS-CoV-2 (PCR) (Negative) 08/11/20 08/11/20 08/11/20 Range/Units 17:33 17:33 17:33 WBC (4.8-10.8) K/uL RBC (4.7-6.1) M/uL Hgb (14.0-18.0) g/dL Hct (42-52) % MCV (80-100) fL MCH (25-34) pg MCHC (32-36) g/dL RDW Std Deviation (36.4-46.3) fL RDW Coeff of Jason (11.5-14.5) % Plt Count (130-400) K/uL MPV (7.4-10.4) fL Immature Gran % (Auto) % Neut % (Auto) % Lymph % (Auto) % Dade % (Auto) % Eos % (Auto) % Baso % (Auto) % Neut # (Auto) (1.4-6.5) K/uL Lymph # (Auto) (1.2-3.4) K/uL Dade # (Auto) (0.11-0.59) K/uL Eos # (Auto) (0-0.5) K/uL Baso # (Auto) (0-0.2) K/uL Immature Gran # (Auto) (0.00-0.02) K/uL ESR (0-20) mm/hr PT 26.6 H (9.0-12.0) Seconds INR 2.8 H (0.9-1.1) APTT 40.6 H (21.0-31.0) Seconds PTT Ratio 1.5 Sodium 135 L (136-145) mmol/L Potassium 4.2 (3.5-5.1) mmol/L Chloride 107 (98-107) mmol/L Carbon Dioxide 20 L (21-32) mmol/L Anion Gap 8.0 (3-11) BUN 33 H (7-18) mg/dl Creatinine 1.72 H (0.6-1.4) mg/dl Est Cr Clr Drug Dosing 52.9 ml/min Est GFR ( Amer) 46.3 ml/min Est GFR (Non-Af Amer) 40.0 ml/min BUN/Creatinine Ratio 19.1 (10-20) Glucose 150 H (70-99) mg/dl Lactate 1.5 (0.4-2.0) mmol/L Calcium 8.5 (8.5-10.1) mg/dl Magnesium 2.0 (1.8-2.4) mg/dl Total Bilirubin 1.3 H (0.2-1) mg/dl AST 95 H (15-37) U/L ALT 80 H (12-78) U/L Alkaline Phosphatase 81 (45-117) U/L C-Reactive Protein (0-0.29) mg/dl Total Protein 7.0 (6.4-8.2) gm/dl Albumin 2.5 L (3.4-5.0) gm/dl Globulin 4.5 H (2.5-4.0) gm/dl Albumin/Globulin Ratio 0.6 L (0.9-2) Procalcitonin (0-0.5) ng/ml Urine Color Urine Appearance (Clear) Urine pH (4.5-7.5) Ur Specific [employer] (1.000-1.030) Urine Protein (Negative) Urine Glucose (UA) (Negative) Urine Ketones (Negative) Urine Blood (Negative) Urine Nitrite (Negative) Urine Bilirubin (Negative) Urine Urobilinogen (Negative) Ur Leukocyte Esterase (Negative) Urine WBC (Auto) (0-5) /hpf Urine RBC (Auto) (0-4) /hpf U Hyaline Cast (Auto) (0-5) /lpf U Epithel Cells (Auto) (0-5) /lpf Urine Bacteria (Auto) (Negative) Urine Yeast COVID-19 Eval Order SARS-CoV-2 (PCR) (Negative) 08/11/20 08/11/20 08/11/20 Range/Units 17:33 17:33 18:09 WBC (4.8-10.8) K/uL RBC (4.7-6.1) M/uL Hgb (14.0-18.0) g/dL Hct (42-52) % MCV (80-100) fL MCH (25-34) pg MCHC (32-36) g/dL RDW Std Deviation (36.4-46.3) fL RDW Coeff of Jason (11.5-14.5) % Plt Count (130-400) K/uL MPV (7.4-10.4) fL Immature Gran % (Auto) % Neut % (Auto) % Lymph % (Auto) % Dade % (Auto) % Eos % (Auto) % Baso % (Auto) % Neut # (Auto) (1.4-6.5) K/uL Lymph # (Auto) (1.2-3.4) K/uL Dade # (Auto) (0.11-0.59) K/uL Eos # (Auto) (0-0.5) K/uL Baso # (Auto) (0-0.2) K/uL Immature Gran # (Auto) (0.00-0.02) K/uL ESR 79 H (0-20) mm/hr PT (9.0-12.0) Seconds INR (0.9-1.1) APTT (21.0-31.0) Seconds PTT Ratio Sodium (136-145) mmol/L Potassium (3.5-5.1) mmol/L Chloride (98-107) mmol/L Carbon Dioxide (21-32) mmol/L Anion Gap (3-11) BUN (7-18) mg/dl Creatinine (0.6-1.4) mg/dl Est Cr Clr Drug Dosing ml/min Est GFR ( Amer) ml/min Est GFR (Non-Af Amer) ml/min BUN/Creatinine Ratio (10-20) Glucose (70-99) mg/dl Lactate (0.4-2.0) mmol/L Calcium (8.5-10.1) mg/dl Magnesium (1.8-2.4) mg/dl Total Bilirubin (0.2-1) mg/dl AST (15-37) U/L ALT (12-78) U/L Alkaline Phosphatase (45-117) U/L C-Reactive Protein 18.60 H (0-0.29) mg/dl Total Protein (6.4-8.2) gm/dl Albumin (3.4-5.0) gm/dl Globulin (2.5-4.0) gm/dl Albumin/Globulin Ratio (0.9-2) Procalcitonin (0-0.5) ng/ml Urine Color Urine Appearance (Clear) Urine pH (4.5-7.5) Ur Specific [employer] (1.000-1.030) Urine Protein (Negative) Urine Glucose (UA) (Negative) Urine Ketones (Negative) Urine Blood (Negative) Urine Nitrite (Negative) Urine Bilirubin (Negative) Urine Urobilinogen (Negative) Ur Leukocyte Esterase (Negative) Urine WBC (Auto) (0-5) /hpf Urine RBC (Auto) (0-4) /hpf U Hyaline Cast (Auto) (0-5) /lpf U Epithel Cells (Auto) (0-5) /lpf Urine Bacteria (Auto) (Negative) Urine Yeast COVID-19 Eval Order Covid19 at [facility] SARS-CoV-2 (PCR) (Negative) 08/11/20 Range/Units 18:09 WBC (4.8-10.8) K/uL RBC (4.7-6.1) M/uL Hgb (14.0-18.0) g/dL Hct (42-52) % MCV (80-100) fL MCH (25-34) pg MCHC (32-36) g/dL RDW Std Deviation (36.4-46.3) fL RDW Coeff of Jason (11.5-14.5) % Plt Count (130-400) K/uL MPV (7.4-10.4) fL Immature Gran % (Auto) % Neut % (Auto) % Lymph % (Auto) % Dade % (Auto) % Eos % (Auto) % Baso % (Auto) % Neut # (Auto) (1.4-6.5) K/uL Lymph # (Auto) (1.2-3.4) K/uL Dade # (Auto) (0.11-0.59) K/uL Eos # (Auto) (0-0.5) K/uL Baso # (Auto) (0-0.2) K/uL Immature Gran # (Auto) (0.00-0.02) K/uL ESR (0-20) mm/hr PT (9.0-12.0) Seconds INR (0.9-1.1) APTT (21.0-31.0) Seconds PTT Ratio Sodium (136-145) mmol/L Potassium (3.5-5.1) mmol/L Chloride (98-107) mmol/L Carbon Dioxide (21-32) mmol/L Anion Gap (3-11) BUN (7-18) mg/dl Creatinine (0.6-1.4) mg/dl Est Cr Clr Drug Dosing ml/min Est GFR ( Amer) ml/min Est GFR (Non-Af Amer) ml/min BUN/Creatinine Ratio (10-20) Glucose (70-99) mg/dl Lactate (0.4-2.0) mmol/L Calcium (8.5-10.1) mg/dl Magnesium (1.8-2.4) mg/dl Total Bilirubin (0.2-1) mg/dl AST (15-37) U/L ALT (12-78) U/L Alkaline Phosphatase (45-117) U/L C-Reactive Protein (0-0.29) mg/dl Total Protein (6.4-8.2) gm/dl Albumin (3.4-5.0) gm/dl Globulin (2.5-4.0) gm/dl Albumin/Globulin Ratio (0.9-2) Procalcitonin (0-0.5) ng/ml Urine Color Urine Appearance (Clear) Urine pH (4.5-7.5) Ur Specific [employer] (1.000-1.030) Urine Protein (Negative) Urine Glucose (UA) (Negative) Urine Ketones (Negative) Urine Blood (Negative) Urine Nitrite (Negative) Urine Bilirubin (Negative) Urine Urobilinogen (Negative) Ur Leukocyte Esterase (Negative) Urine WBC (Auto) (0-5) /hpf Urine RBC (Auto) (0-4) /hpf U Hyaline Cast (Auto) (0-5) /lpf U Epithel Cells (Auto) (0-5) /lpf Urine Bacteria (Auto) (Negative) Urine Yeast COVID-19 Eval Order SARS-CoV-2 (PCR) NEGATIVE (Negative) Administered Medications Aspirin (Aspirin 81 Mg Ectab) 81 mg PO QPM [facility] Stop: 09/10/20 20:59 Last Admin: 08/11/20 21:55 Dose: 81 mg Documented by: [id number] Atorvastatin Calcium (Atorvastatin 40 Mg Tab) 40 mg PO PM [facility] Stop: 09/10/20 20:59 Last Admin: 08/11/20 21:55 Dose: 40 mg Documented by: [id number] Cyanocobalamin (Cyanocobalamin 500 Mcg Tablet (Vitamin B-12)) 1,000 mcg PO PM [facility] Stop: 09/10/20 20:59 Last Admin: 08/11/20 21:55 Dose: 1,000 mcg Documented by: [id number] Insulin Aspart (Insulin Aspart 100 Units/Ml 3 Ml Pen) 0 units SC ACHS [facility] Stop: 09/10/20 20:59 Last Admin: 08/11/20 21:51 Dose: Not Given Documented by: [id number] Losartan Potassium (Losartan Potassium 50 Mg Tab) 50 mg PO HS [facility] Stop: 09/10/20 20:59 Last Admin: 08/11/20 21:55 Dose: 50 mg Documented by: [id number] Magnesium Oxide (Magnesium Oxide 400 Mg Tab) 400 mg PO BID [facility] Stop: 09/10/20 20:59 Last Admin: 08/11/20 21:55 Dose: 400 mg Documented by: [id number] Miscellaneous (Jardiance~Order Awaiting Action) 1 ea N/A QS [facility] Stop: 09/10/20 21:44 Last Admin: 08/11/20 21:59 Dose: Not Given Documented by: [id number] Admin: 08/11/20 21:53 Dose: Not Given Documented by: [id number] Multivitamins/Folic Acid/Vitamin C (Multivitamin Chewable Tab) 1 tab PO PM [facility] Stop: 09/10/20 20:59 Last Admin: 08/11/20 21:54 Dose: 1 tab Documented by: [id number] Tamsulosin HCl (Tamsulosin Hcl 0.4 Mg Cap) 0.4 mg PO PM [facility] Stop: 09/10/20 20:59 Last Admin: 08/11/20 21:55 Dose: 0.4 mg Documented by: [id number] Triamcinolone Acetonide (Triamcinolone Acet 0.1% Cr 15 Gm Tube) 1 appln TOP BID [facility] Stop: 09/10/20 20:59 Last Admin: 08/11/20 21:53 Dose: 1 appln Documented by: [id number] Vitamin D (Cholecalciferol 1,000 Units 25 Mcg Tab) 2,000 units PO PM [facility] Stop: 09/10/20 20:59 Last Admin: 08/11/20 21:55 Dose: 2,000 units Documented by: [id number] Discontinued Medications Sodium Chloride (Nss 1000ml) 1,000 mls @ 999 mls/hr IV .Q1H1M [facility] Stop: 08/11/20 18:45 Last Infusion: 08/11/20 19:40 Dose: 0 mls/hr Documented by: [id number] Admin: 08/11/20 19:00 Dose: 999 mls/hr Documented by: [id number] Piperacillin Sod/Tazobactam Sod (Zosyn) 4.5 gm in 120 mls @ 240 mls/hr IV NOW ONE Stop: 08/11/20 18:06 Last Infusion: 08/11/20 19:40 Dose: 0 mls/hr Documented by: [id number] Admin: 08/11/20 19:00 Dose: 240 mls/hr Documented by: [id number] Daptomycin 550 mg/ Syringe 11 mls @ 5.5 mls/min IV NOW ONE; Protocol Stop: 08/11/20 18:12 Last Admin: 08/11/20 19:00 Dose: 5.5 mls/min Documented by: [id number] Clindamycin Phosphate 900 mg/ (Dextrose) 56 mls @ 112 mls/hr IV ONE ONE Stop: 08/11/20 20:21 Last Admin: 08/11/20 21:48 Dose: 112 mls/hr Documented by: [id number] Phytonadione 5 mg/ Sodium (Chloride) 50.5 mls @ 101 mls/hr IV ONE ONE Stop: 08/11/20 21:44 Last Admin: 08/11/20 21:48 Dose: 101 mls/hr Documented by: [id number] Imaging Data Radiologist's Impression: Chest X-Ray 08/11/20 17:38 XR chest 1V portable CLINICAL HISTORY: SEPSIS COMPARISON STUDY: 05/07/2019 FINDINGS: The heart is mildly enlarged. There is a left subclavian single chamb er central venous pacemaker. There is no failure. There is no focal pulmonary consolidation. There are no pleural effusions. Postsurgical changes are present within the cervical spine.[ IMPRESSION: No active disease in the chest. ACT 112: Negative or not required by law. Electronically signed by: Timo Delgado M.D. 08/11/2020 5:[address] 08/11/20 17:40 CT foot RT wo con CT DOSE: 251.09 mGy.cm CLINICAL HISTORY: Infection. Possible osteomyelitis TECHNIQUE: Helical images were acquired in the transverse plane. Sagittal coronal reformatted images were acquired. A dose lowering technique was utilized adhering to the principles of ALARA. COMPARISON STUDY: None. FINDINGS: There are moderately extensive vascular calcifications. There are moderate degenerative changes within the midfoot. There is prominent calcaneal spurring. There is soft tissue gas adjacent to the proximal distal phalanges of the great toe. There is medullary gas present within the distal phalanx of the great toe, as well as gas within the distal aspect of the proximal phalanx of the great toe. The findings are consistent with osteomyelitis. There is diffuse soft tissue edema of the foot. IMPRESSION: 1. Soft tissue gas present within the tissues surrounding the proximal distal phalanges of the great toe. The findings are consistent with a necrotizing fasciitis 2. Intramedullary gas involving the distal phalanx of the great toe and distal aspect of the proximal phalanx the great toe. This is an ancillary finding reported in osteomyelitis, and therefore osteomyelitis is strongly suspected. Surgical consultation recommended. ACT 112: Positive. There are findings on this exam that require communication between the performing entity and the patient following Patient Test Result Information Act ([place] Act 112) guidelines. Electronically signed by: Timo Delgado M.D. 08/11/2020 7:44 PM Discharge Plan Visit Data Chief Complaint: Infection Stated Complaint: INFECTION IN TOE RIGHT FOOT ED Provider: River Humphries Discharge Problem: Necrotizing fasciitis, Leukocytosis, Cellulitis of right foot, Fever Patient Disposition: Admitted As Inpatient Condition: Serious Discharge Instructions Interventions: ED Discharge Assessment Last Done: 08/11/20 20:28 Discharge Problem: Leukocytosis Qualifiers: Leukocytosis type: unspecified Qualified Code(s): D72.829 - Elevated white blood cell count, unspecified Fever Qualifiers: Fever type: unspecified Qualified Code(s): R50.9 - Fever, unspecified
[2020-08-11] MEDS ORDERED: SODIUM CHLORIDE 0.9% 1000ML 1,000 ML IV SCH (17:45)
[2020-08-11 17:53] LABS: Basophils # (auto) 0.01 K/uL (0-0.2); Basophils % (auto) 0.1 %; Eosinophils # (auto) 0.02 K/uL (0-0.5); Eosinophils % (auto) 0.2 %; Hematocrit (blood only) 44.2 % (42-52); Hemoglobin 15.4 g/dL (14.0-18.0); Immature Granulocytes # (auto) 0.03 K/uL (0.00-0.02); Immature Granulocytes % (auto) 0.3 %; Lymphocytes # (auto) 0.51 K/uL (1.2-3.4); Lymphocytes % (auto) 4.6 %; Mean Corpuscular Hemoglobin 31.2 pg (25-34); Mean Corpuscular Hgb Conc 34.8 g/dL (32-36); Mean Corpuscular Volume 89.7 fL (80-100); Mean Platelet Volume 10.8 fL (7.4-10.4); Monocytes # (auto) 0.97 K/uL (0.11-0.59); Monocytes % (auto) 8.8 %; Neutrophils # (auto) 9.49 K/uL (1.4-6.5); Platelet Count 166 K/uL (130-400); RDW Coefficient of Variation 14.4 % (11.5-14.5); RDW Standard Deviation 47.4 fL (36.4-46.3); Red Blood Count 4.93 M/uL (4.7-6.1); White Blood Count 11.03 K/uL (4.8-10.8)
--- NOTE | 2020-08-11 17:59 | XRay Report ---
XR chest 1V portable CLINICAL HISTORY: SEPSIS COMPARISON STUDY: 05/07/2019 FINDINGS: The heart is mildly enlarged. There is a left subclavian single chamber central venous pace maker. There is no failure. There is no focal pulmonary consolidation. There are no pleural effusions . Postsurgical changes are present within the cervical spine.[ IMPRESSION: No active disease in the chest. ACT 112: Negative or not required by law. Electronically signed by: Timo Delgado M.D. 08/11/2020 5:57 PM
[2020-08-11 18:11] LABS: Albumin Level 2.5 gm/dl (3.4-5.0); BUN Creatinine Ratio 19.1 (10-20); Calcium 8.5 mg/dl (8.5-10.1); Creatinine Clr Calc Pharmacy 52.9 ml/min; Est GFR (African American) 46.3 ml/min; Potassium 4.2 mmol/L (3.5-5.1)
[2020-08-11] MEDS ORDERED: DAPTOmycin 550 MG in SYRINGE 0 ML IV ONE (18:11)
[2020-08-11 18:14] LABS: Albumin Globulin Ratio 0.6 (0.9-2); Bilirubin,Total 1.3 mg/dl (0.2-1); Globulin 4.5 gm/dl (2.5-4.0)
[2020-08-11 18:20] LABS: INR 2.8 (0.9-1.1); Partial Thromboplastin Ratio 1.5; Partial Thromboplastin Time 40.6 Seconds (21.0-31.0); Prothrombin Time 26.6 Seconds (9.0-12.0)
[2020-08-11 18:50] LABS: Appearance Urine Cloudy (Clear); Bacteria Urine Automated 4+ (Negative); Blood Urine 2+ (Negative); Color Urine Dark Yellow; Epithelial Cell Urine Auto >30 /lpf (0-5); Glucose Urine UA 3+ (Negative); Ketones Urine Trace (Negative); Leukocyte Esterase Urine 1+ (Negative); Nitrite Urine Negative (Negative); Protein Urine 3+ (Negative); RBC Urine Automated 0-4 /hpf (0-4); Specific Gravity Urine 1.028 (1.000-1.030); Urobilinogen Urine Negative (Negative); WBC Urine Automated >30 /hpf (0-5)
--- NOTE | 2020-08-11 18:56 | History & Physical Report ---
Date of Service August 11, 2020 Assessment & Plan (1) Cellulitis of right lower limb: (2) Ulcer of left great toe due to diabetes mellitus: (3) Leukocytosis: (4) Diabetic peripheral neuropathy associated with type 2 diabetes mellitus: (5) Venous insufficiency: (6) Peripheral arterial disease: (7) Hypertension: (8) Mixed sleep apnea: (9) CKD (chronic kidney disease), stage III: (10) Dyslipidemia: (11) Pacemaker: Daptomycin and Zosyn, Continue OP meds where appropriate, Monitor daily labs, EKG, No MRI sec to pacer, Ortho eval, CT LE pending History of Present Illness Chief Complaint: Swollen RLE and Big Toe R Primary Care Provider: Jocelyne Desai, 70 yo male c PMH A/C Renal Failure, LLE Cellulitis, CHF, Chronic Anemia, CKD III, CVA, DDD, Depression, DM II, DM Neuropathy, DLD, HTN, Hypomag, Hypophos, MINERVA, Obesity, Pacer, PAD, DFU, Sepsis, Tachy Danish syndrome, and AFIB who comes in to our ER c/o RLE swelling, redness, and foul odor. He noticed a small ulcer on his right great toe a few weeks ago. He was caring for it with some cream that he had been given from the wound center for previous infections. Over the weekend, the area got more erythematous and swollen, he said it just blew up. Today, it became quite red. Home health evaluated the foot today and were worried about cellulitis. They reported maggots in the wound. The patient had chills over the weekend. Allergies Allergy/AdvReac Type Severity Reaction Status Date / Time No Known Allergies Allergy Verified 08/11/20 18:49 Home Medications Medication Instructions Recorded Confirmed Type Flintstones Complete (iron) 1 tab PO PM #0 04/11/13 02/11/20 History atorvastatin 40 mg PO PM #0 tab 01/08/17 02/11/20 History warfarin 3 mg MOWEFR #0 tab 01/08/17 02/11/20 History cholecalciferol (vitamin D3) 1,000 unit PO PM 10/18/17 02/11/20 History [Vitamin D3] cyanocobalamin (vitamin B-12) 1,000 mcg PO PM 05/06/19 02/11/20 History furosemide 20 mg PO MOWEFR 05/06/19 02/11/20 History furosemide 40 mg PO SUTUTHSA 05/06/19 02/11/20 History tamsulosin 0.4 mg PO PM 05/06/19 02/11/20 History magnesium oxide 400 mg PO BID 09/26/19 02/11/20 History Jardiance 10 mg PO DAILY 11/04/19 02/11/20 History betamethasone dipropionate 1 applic TOPICAL DAILY PRN 11/04/19 02/11/20 History warfarin 1.5 mg PO SUTUTHSA 11/04/19 02/11/20 History aspirin 81 mg PO QPM 08/11/20 08/11/20 History losartan 50 mg PO HS 08/11/20 08/11/20 History triamcinolone acetonide 1 applic TOPICAL BID 08/11/20 08/11/20 History [Aristocort] Past Med/Surg History Medical History Acute renal failure superimposed on stage 3 chronic kidney disease Atrial fibrillation Cellulitis of left lower extremity CHF (congestive heart failure) Chronic anemia CKD (chronic kidney disease), stage III CVA (cerebral vascular accident) 01/2018; residual right sided weakness Degenerative disc disease Depression Diabetes type 2, controlled Diabetic peripheral neuropathy associated with type 2 diabetes mellitus Dyslipidemia Hypertension Hypomagnesemia Hypophosphatemia Mixed sleep apnea Pacemaker Peripheral arterial disease Personal history of diabetic foot ulcer Pseudomonas infection Sepsis (10/25/13) Tachy-danish syndrome Surgical History Gastric bypass status for obesity Family History Other Cancer Diabetes Hypertension Social History Smoking Status: Former smoker Second Hand Exposure: No; Hx Alcohol Use: Yes Hx Substance Use: No Preferred Language: Japanese 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 Ability: Effective 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 Beliefs That Will Affect Care: None marital status: Current Living Situation: Alone Current Living Situation Comment: family live upstairs Feels Safe at Home: Yes Assistive Devices: Cane and Glasses Review of Systems Review of Systems: ROS-No Headache, No Visual Changes, No Nausea, No Vomiting, No Fever, + Chills, No Neck Pain or Stiffness, No Chest Pain, No Palpitations, No SOB, No ROBERTS, No Cough, No Sputum, No Wheezing, No Abdominal Pain, No Diarrhea, No Hematemesis, No Hemoptysis, No Unexpected Weight Loss, No Flank pain, No Melena, No Hematochezia, No Frequency, No Urgency, No Burning, No Hematuria, No Rashes, No Diaphoresis. Appetite is Normal, Swollen Red RLE c Ulcer on R Great toe, draining pus, Foul Smell Physical Exam Physical Exam: Physical Exam Gen-AAO x 3, NAD, Afebrile, Obese Head-NCAT, EOMI, PERRLA, Anicteric Sclera, No Posterior Pharyngeal Erythema Neck-Supple, No JVD, No Thyromegaly, No Masses, No LAD, No Bruits Lungs-Clear to Auscultation Bilaterally, No Rales, No Rhonchi, No Wheezing, No Crepitus Chest-No S4, +S1, +S2, No S3, No Murmurs, No Rubs, No Gallops, No Ectopy Abdomen-Soft, Bowel Sounds Present, Non Tender, Non Distended, No Hepatomegaly, No Splenomegaly, No Palpable Masses, No Rebound, No Rigidity, No Guarding Musculoskeletal-Full Range of Motion Bilaterally, No CVAT Extremities-Swollen Erythematous RLE c Macerated Ulcer on R Great toe, draining pus, Foul Smelling Nuero-Cranial Nerves II-XII grossly intact, Motor WNL, DTRs WNL, Strength WNL, Non Focal Psych-Normal Mood Results & Data Results & Data ([facility]) Vital Signs (Past 12 Hours) Vital Signs Temp Pulse Resp BP Pulse Ox 08/11/20 16:53 37.6 C H 72 18 125/77 95 Allergies No Known Allergies Allergy (Verified 08/11/20 18:49) Height/Weight/Isolation Height 5 ft 11 in Weight 114.4 kg Chemistry 08/11/20 17:33 Sodium 135 L Potassium 4.2 Chloride 107 Carbon Dioxide 20 L Anion Gap 8.0 BUN 33 H Creatinine 1.72 H Glucose 150 H Microbiology 08/11/20 17:33 Blood Aerobic Blood Culture - Pending 08/11/20 17:33 Blood Anaerobic Blood Culture - Pending 08/11/20 17:22 Blood Aerobic Blood Culture - Pending 08/11/20 17:22 Blood Anaerobic Blood Culture - Pending Code Status & VTE Plan VTE Prophylaxis Plan VTE Prophylaxis will be ordered: Yes
[2020-08-11 18:58] LABS: Bilirubin Urine 1+ (Negative)
--- NOTE | 2020-08-11 19:46 | CT Scan Report ---
CT foot RT wo con CT DOSE: 251.09 mGy.cm CLINICAL HISTORY: Infection. Possible osteomyelitis TECHNIQUE: Helical images were acquired in the transverse plane. Sagittal coronal reformatted images were acquired. A dose lowering technique was utilized adhering to the principles of ALARA. COMPARISON STUDY: None. FINDINGS: There are moderately extensive vascular calcifications. There are moderate degenerative changes within the midfoot. There is prominent calcaneal spurring. There is soft tissue gas adjacent to the proximal distal phalanges of the great toe. There is medulla ry gas present within the distal phalanx of the great toe, as well as gas within the distal aspect of the proximal phalanx of the great toe. The findings are consistent with osteomyelitis. There is diffuse soft tissue edema of the foot. IMPRESSION: 1. Soft tissue gas present within the tissues surrounding the proximal distal phalanges of the great toe. The findings are consistent with a necrotizing fasciitis 2. Intramedullary gas involving the distal phalanx of the great toe and distal aspect of the proximal phalanx the great toe. This is an ancillary finding reported in osteomyelitis, and therefore osteomy elitis is strongly suspected. Surgical consultation recommended. ACT 112: Positive. There are findings on this exam that require communication between the performing entity and the patient following Patient Test Result Information Act ([place] Act 112) guidelines. Electronically signed by: Timo Delgado M.D. 08/11/2020 7:44 PM
[2020-08-11] MEDS ORDERED: CLINDAMYCIN 900 MG in DEXTROSE 5% 50 ML IV ONE (19:52)
[2020-08-11] MEDS ORDERED: POLYETHYLENE (MIRALAX) 17 GM PACK PO PRN (20:18)
[2020-08-11] MEDS ORDERED: BETAMETHASONE DIP AUG 0.05% OINT 15 GM TUBE EXT PRN (20:18)
[2020-08-11] MEDS ORDERED: ONDANSETRON INJ 2 MG/ML 2 ML VIAL IV PRN (20:18)
[2020-08-11] MEDS ORDERED: INSULIN ASPART 100 UNITS/ML 3 ML PEN SC SCH (21:00)
--- NOTE | 2020-08-11 21:07 | 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 Note ---
Date of Service: August 11, 2020 CT of foot revealed soft tissue gas present within the tissues surrounding the proximal distal phalanges of the great toe. The findings are consistent with a necrotizing fasciitis vs osteomyelitis. Reviewed case with ortho aviation operations specialist-feel clinical picture consistent with osteomyelitis. Accepted patient with plans for OR tomorrow Hemodynamically stable. Non-toxic appearance. Lactate and procal WNL. Added ESR, CRP and A1c 5mg IV Vitamin K given to reverse INR of 2.8. Hold coumadin NPO after midnight
[2020-08-11] MEDS ORDERED: PHYTONADIONE 5 MG in SODIUM CHLORIDE 0.9% 50 ML IV ONE (21:15)
[2020-08-11] MEDS ORDERED: CLINDAMYCIN CONSULT ACTIVE PRN (21:32)
[2020-08-11] MEDS ORDERED: DEXTROSE 50% 50 ML SYRINGE IV PRN (21:45)
[2020-08-11] MEDS ORDERED: GLUCOSE 40% GEL 15 GM TUBE PO PRN (21:45)
[2020-08-11] MEDS ORDERED: GLUCAGON FOR INJ 1 MG VIAL IM PRN (21:45)
[2020-08-11] MEDS ORDERED: GLUCOSE 10 TABS/TUBE PO PRN (21:45)
[2020-08-11] MEDS ORDERED: CARBOHYDRATES FOR HYPOGLYCEMIA PO PRN (21:45)
[2020-08-11] MEDS: TRIAMCINOLONE ACET 0.1% CR 15 GM TUBE TOP SCH (21:53)
[2020-08-11] MEDS: MULTIVITAMIN CHEWABLE TAB PO SCH (21:54)
[2020-08-11] MEDS: TAMSULOSIN HCL 0.4 MG CAP PO SCH (21:55)
[2020-08-11] MEDS: ASPIRIN 81 MG ECTAB PO SCH (21:55)
[2020-08-11] MEDS: CYANOCOBALAMIN 500 MCG TABLET (VITAMIN B-12) PO SCH (21:55)
[2020-08-11] MEDS: LOSARTAN POTASSIUM 50 MG TAB PO SCH (21:55)
[2020-08-11] MEDS: ATORVASTATIN 40 MG TAB PO SCH (21:55)
[2020-08-11] MEDS: MAGNESIUM OXIDE 400 MG TAB PO SCH (21:55)
[2020-08-11] MEDS: CHOLECALCIFEROL 1,000 UNITS 25 MCG TAB PO SCH (21:55)
[2020-08-12] MEDS: PIPERACILLIN/TAZOBACTAM 4.5 GM in DEXTROSE 5% 100 ML IV SCH ×3 (00:02→17:28)
[2020-08-12] MEDS ORDERED: Nursing to Pharmacy Communication SCH ×2 (04:45→17:45)
[2020-08-12] MEDS: CLINDAMYCIN 900 MG in DEXTROSE 5% 50 ML IV SCH ×3 (05:47→21:49)
[2020-08-12] MEDS: INSULIN ASPART 100 UNITS/ML 3 ML PEN SC SCH ×4 (05:47→20:41)
[2020-08-12 06:12] LABS: Hemoglobin 15.2 g/dL (14.0-18.0); Mean Corpuscular Hemoglobin 30.5 pg (25-34); Mean Corpuscular Volume 92.4 fL (80-100); Mean Platelet Volume 10.8 fL (7.4-10.4); Platelet Count 184 K/uL (130-400); RDW Coefficient of Variation 14.5 % (11.5-14.5); RDW Standard Deviation 49.6 fL (36.4-46.3); Red Blood Count 4.98 M/uL (4.7-6.1); White Blood Count 9.94 K/uL (4.8-10.8)
[2020-08-12 06:30] LABS: BUN Creatinine Ratio 18.6 (10-20); Calcium 8.4 mg/dl (8.5-10.1); Creatinine Clr Calc Pharmacy 51.4 ml/min; Est GFR (African American) 44.7 ml/min; Est GFR (Non-African American) 38.6 ml/min; Potassium 3.9 mmol/L (3.5-5.1)
[2020-08-12 06:31] LABS: INR 1.7 (0.9-1.1); Prothrombin Time 16.2 Seconds (9.0-12.0)
[2020-08-12 07:11] LABS: Estimated Average Glucose 151 mg/dl; Hemoglobin A1C 6.9 % (4.5-5.6)
[2020-08-12] MEDS: TRIAMCINOLONE ACET 0.1% CR 15 GM TUBE TOP SCH ×2 (07:47→20:38)
--- NOTE | 2020-08-12 09:04 | Hospitalist Progress Note ---
Date of Service August 12, 2020 Assessment & Plan (1) Necrotizing fasciitis: (2) Osteomyelitis of toe: (3) Ulcer of left great toe due to diabetes mellitus: (4) Cellulitis of right lower limb: (5) Leukocytosis: (6) Diabetic peripheral neuropathy associated with type 2 diabetes mellitus: (7) Venous insufficiency: (8) Peripheral arterial disease: (9) Hypertension: (10) Mixed sleep apnea: (11) CKD (chronic kidney disease), stage III: (12) Dyslipidemia: (13) Pacemaker: Daptomycin and Zosyn, Continue OP meds where appropriate, Monitor daily labs, EKG, No MRI sec to pacer, Ortho eval pending, labs checked. CT LE-IMPRESSION: 1. Soft tissue gas present within the tissues surrounding the proximal distal phalanges of the great toe. The findings are consistent with a necrotizing fasciitis 2. Intramedullary gas involving the distal phalanx of the great toe and distal aspect of the proximal phalanx the great toe. This is an ancillary finding reported in osteomyelitis, and therefore osteomyelitis is strongly suspected. Surgical consultation recommended. ROS-No Headache, No Visual Changes, No Nausea, No Vomiting, No Fever, + Chills, No Neck Pain or Stiffness, No Chest Pain, No Palpitations, No SOB, No ROBERTS, No Cough, No Sputum, No Wheezing, No Abdominal Pain, No Diarrhea, No Hematemesis, No Hemoptysis, No Unexpected Weight Loss, No Flank pain, No Melena, No Hematochezia, No Frequency, No Urgency, No Burning, No Hematuria, No Rashes, No Diaphoresis. Appetite is Normal, Swollen Red RLE c Ulcer on R Great toe, draining pus, Foul Smell Physical Exam Gen-AAO x 3, NAD, Afebrile, Obese Head-NCAT, EOMI, PERRLA, Anicteric Sclera, No Posterior Pharyngeal Erythema Neck-Supple, No JVD, No Thyromegaly, No Masses, No LAD, No Bruits Lungs-Clear to Auscultation Bilaterally, No Rales, No Rhonchi, No Wheezing, No Crepitus Chest-No S4, +S1, +S2, No S3, No Murmurs, No Rubs, No Gallops, No Ectopy Abdomen-Soft, Bowel Sounds Present, Non Tender, Non Distended, No Hepatomegaly, No Splenomegaly, No Palpable Masses, No Rebound, No Rigidity, No Guarding Musculoskeletal-Full Range of Motion Bilaterally, No CVAT Extremities-Swollen Erythematous RLE c Macerated Ulcer on R Great toe, draining pus, Foul Smelling Nuero-Cranial Nerves II-XII grossly intact, Motor WNL, DTRs WNL, Strength WNL, Non Focal Psych-Normal Mood Admission and Anticipated Discharge Date Admission Date: August 11, 2020 Results & Data Results & Data ([facility]) Vital Signs (Past 12 Hours) Vital Signs Temp Pulse Pulse Resp BP Pulse Ox 08/12/20 07:00 36.7 C 62 16 108/67 96 08/12/20 03:42 61 26 H 94 08/11/20 23:12 55 L 19 96 08/11/20 22:45 36.5 C 55 L 18 114/71 95 08/11/20 22:13 36.5 C 63 18 120/76 96 08/11/20 21:57 36.5 C 66 18 133/80 95 08/11/20 21:42 37.1 C 18 134/74 97
[2020-08-12] MEDS ORDERED: ONDANSETRON INJ 2 MG/ML 2 ML VIAL IV PRN ×2 (09:41→16:30)
[2020-08-12] MEDS ORDERED: ATROPINE SULFATE 0.1 MG/ML 10ML SYR IV PRN (09:41)
[2020-08-12] MEDS ORDERED: HYDROmorphone INJ 1 MG/ML SYRINGE IV PRN (09:41)
[2020-08-12] MEDS ORDERED: LABETALOL HCL IV 5 MG/ML 20ML IV PRN (09:41)
[2020-08-12] MEDS ORDERED: fentaNYL citrate 100 MCG/2 ML VIAL IV PRN (09:41)
[2020-08-12] MEDS ORDERED: ePHEDrine sulfate 50 MG/ML AMP IV PRN (09:41)
[2020-08-12] MEDS ORDERED: PHENYLEPHRINE 100MCG/ML 5ML SYR IV PRN (09:41)
[2020-08-12] MEDS: MAGNESIUM OXIDE 400 MG TAB PO SCH ×2 (09:58→19:51)
[2020-08-12] MEDS: FUROSEMIDE 20 MG TAB PO SCH (09:58)
--- NOTE | 2020-08-12 11:00 | Anesthesiology Consultation ---
Date of Service August 12, 2020 Assessment & Plan (1) Encounter for pre-operative examination: Chart Review Chart Review: Acceptable Risk for Surgery (necessary surgery) and Patient NOT seen in Pre Admission Testing Consults Requested none History Surgery Operation Date: 08/12/20 07:00 Proposed Procedures p Right Great Toe Amputation - Jhony Yung DO Height/Weight Height: 5 ft 11 in Weight: 114.6 kg Allergies Allergy/AdvReac Type Severity Reaction Status Date / Time No Known Allergies Allergy Verified 08/11/20 18:49 Medications Home Medications Medication Instructions Recorded Confirmed Last Taken Flintstones Complete (iron) 1 tab PO PM #0 04/11/13 08/11/20 08/10/20 atorvastatin 40 mg PO PM #0 tab 01/08/17 08/11/20 08/10/20 warfarin 3 mg MOWEFR #0 tab 01/08/17 08/11/20 08/10/20 cholecalciferol (vitamin D3) 2,000 unit PO PM 10/18/17 08/11/20 08/10/20 [Vitamin D3] cyanocobalamin (vitamin B-12) 1,000 mcg PO PM 05/06/19 08/11/20 08/10/20 furosemide 20 mg PO MOWEFR 05/06/19 08/11/20 08/10/20 furosemide 40 mg PO SUTUTHSA 05/06/19 08/11/20 08/09/20 tamsulosin 0.4 mg PO PM 05/06/19 08/11/20 08/10/20 magnesium oxide 400 mg PO BID 09/26/19 08/11/20 08/10/20 Jardiance 10 mg PO DAILY 11/04/19 08/11/20 08/10/20 betamethasone dipropionate 1 applic TOPICAL DAILY PRN 11/04/19 08/11/20 Unknown warfarin 1.5 mg PO SUTUTHSA 11/04/19 08/11/20 08/09/20 aspirin 81 mg PO QPM 08/11/20 08/11/20 08/10/20 doxycycline hyclate 100 mg PO BID 08/11/20 08/11/20 Unknown losartan 50 mg PO HS 08/11/20 08/11/20 08/10/20 triamcinolone acetonide 1 applic TOPICAL BID 08/11/20 08/11/20 08/10/20 [Aristocort] Active Medications Generic Name Dose Route Start Last Admin Trade Name Oneyda PRN Reason Stop Dose Admin Aspirin 81 mg 08/11/20 21:00 08/11/20 21:55 Aspirin 81 Mg Ectab PO 09/10/20 20:59 81 mg QPM COOKIE Administration Atorvastatin Calcium 40 mg 08/11/20 21:00 08/11/20 21:55 Atorvastatin 40 Mg Tab PO 09/10/20 20:59 40 mg PM COOKIE Administration Cyanocobalamin 1,000 mcg 08/11/20 21:00 08/11/20 21:55 Cyanocobalamin 500 Mcg Tablet (Vitamin B-12) PO 09/10/20 20:59 1,000 mcg PM COOKIE Administration Furosemide 20 mg 08/12/20 09:00 08/12/20 09:58 Furosemide 20 Mg Tab PO 09/11/20 08:59 Not Given [id number] COOKIE Piperacillin Sod/Tazobactam 120 mls @ 30 mls/hr 08/12/20 00:00 08/12/20 07:37 Sod 4.5 gm/ Dextrose IV 08/19/20 00:00 30 mls/hr Q8H COOKIE Administration Protocol Clindamycin Phosphate 900 mg/ 56 mls @ 112 mls/hr 08/12/20 06:00 08/12/20 06:17 Dextrose IV 08/19/20 05:59 Infused Q8H COOKIE Infusion Insulin Aspart 0 units 08/12/20 06:00 08/12/20 05:47 Insulin Aspart 100 Units/Ml 3 Ml Pen SC 09/11/20 05:59 Not Given Q6 COOKIE Losartan Potassium 50 mg 08/11/20 21:00 08/11/20 21:55 Losartan Potassium 50 Mg Tab PO 09/10/20 20:59 50 mg HS COOKIE Administration Magnesium Oxide 400 mg 08/11/20 21:00 08/12/20 09:58 Magnesium Oxide 400 Mg Tab PO 09/10/20 20:59 400 mg BID COOKIE Administration Miscellaneous 1 ea 08/11/20 21:45 08/12/20 07:25 Jardiance~Order Awaiting Action N/A 09/10/20 21:44 Not Given QS COOKIE Multivitamins/Folic Acid/Vitamin C 1 tab 08/11/20 21:00 08/11/20 21:54 Multivitamin Chewable Tab PO 09/10/20 20:59 1 tab PM COOKIE Administration Tamsulosin HCl 0.4 mg 08/11/20 21:00 08/11/20 21:55 Tamsulosin Hcl 0.4 Mg Cap PO 09/10/20 20:59 0.4 mg PM COOKIE Administration Triamcinolone Acetonide 1 appln 08/11/20 21:00 08/12/20 07:47 Triamcinolone Acet 0.1% Cr 15 Gm Tube TOP 09/10/20 20:59 Not Given BID COOKIE Vitamin D 2,000 units 08/11/20 21:00 08/11/20 21:55 Cholecalciferol 1,000 Units 25 Mcg Tab PO 09/10/20 20:59 2,000 units PM COOKIE Administration Past Medical History Medical History Acute renal failure superimposed on stage 3 chronic kidney disease Atrial fibrillation Cellulitis of left lower extremity CHF (congestive heart failure) Chronic anemia CKD (chronic kidney disease), stage III CVA (cerebral vascular accident) 01/2018; residual right sided weakness Degenerative disc disease Depression Diabetes type 2, controlled Diabetic peripheral neuropathy associated with type 2 diabetes mellitus Dyslipidemia Hypertension Hypomagnesemia Hypophosphatemia Mixed sleep apnea Pacemaker Peripheral arterial disease Personal history of diabetic foot ulcer Pseudomonas infection Sepsis (10/25/13) Tachy-geronimo syndrome Past Family History Family History Other Cancer Diabetes Hypertension Past Surgical History Surgical History Gastric bypass status for obesity Social History Smoking Status: Never smoker Do You Dip or Chew Tobacco: No Hx Alcohol Use: Yes alcohol intake frequency: holidays/special occasions only Hx Substance Use: No substance use type: does not use Physical Exam Vital Signs Last Vital Signs Temp 36.7 C 08/12/20 07:00 Pulse 62 08/12/20 07:00 Resp 16 08/12/20 07:00 BP 108/67 08/12/20 07:00 Pulse Ox 96 08/12/20 07:00 Testing Laboratory Results 08/12/20 05:57 08/12/20 05:57 PT 16.2 Seconds (9.0-12.0) H 08/12/20 05:57 INR 1.7 (0.9-1.1) H 08/12/20 05:57 APTT 40.6 Seconds (21.0-31.0) H 08/11/20 17:33 Hemoglobin A1c 6.9 % (4.5-5.6) H 08/11/20 17:33 Urine Color Dark Yellow 08/11/20 17:11 Urine Appearance Cloudy (Clear) A 08/11/20 17:11 Urine pH 5.0 (4.5-7.5) 08/11/20 17:11 Ur Specific [place] 1.028 (1.000-1.030) 08/11/20 17:11 Urine Protein 3+ (Negative) H 08/11/20 17:11 Urine Glucose (UA) 3+ (Negative) H 08/11/20 17:11 Urine Ketones Trace (Negative) H 08/11/20 17:11 Urine Nitrite Negative (Negative) 08/11/20 17:11 Ur Leukocyte Esterase 1+ (Negative) H 08/11/20 17:11 Urine WBC (Auto) >30 /hpf (0-5) H 08/11/20 17:11 Urine RBC (Auto) 0-4 /hpf (0-4) 08/11/20 17:11 U Hyaline Cast (Auto) 1-5 /lpf (0-5) 08/11/20 17:11 U Epithel Cells (Auto) >30 /lpf (0-5) H 08/11/20 17:11 Urine Bacteria (Auto) 4+ (Negative) H 08/11/20 17:11 08/11/20 17:11 Urine Culture - Preliminary Urine,Clean Catch Gram negative bacilli 08/12/20 05:45 POC Glucose 129 H Electrocardiogram Date: 08/11/20 Vpaced, rate 61 Chest X-Ray Date: 08/11/20 XR chest 1V portable CLINICAL HISTORY: SEPSIS COMPARISON STUDY: 05/07/2019 FINDINGS: The heart is mildly enlarged. 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 There is no failure. There is no focal pulmonary consolidation. There are no pleural effusions. Postsurgical changes are present within the cervical spine.[ IMPRESSION: No active disease in the chest. ACT 112: Negative or not required by law. Electronically signed by: Timo Delgado M.D. 08/11/2020 5:57 PM Dictated: [id number]: [id number]
--- NOTE | 2020-08-12 11:38 | Orthopedic Consultation ---
Date of Consultation August 12, 2020 Assessment & Plan (1) Necrotizing fasciitis: discussed care with patient, at this point recommend great toe amputation of the right great toe. will discuss care with Dr Yung as well, will remain NPO. The risks and benefits have been discussed including, but not limited to, risk of infection, nerve injury, stiffness, loss of motion, failure to improve, etc. Reasonable outcomes and options of treatment were discussed. An explanation of appropriate alternatives to the procedure that may be advantageous were discussed and their risks and benefits, as well as the risks and benefits of not proceeding with treatment. I offered to answer any additional inquiries concerning the treatment involved. All the patient's questions were answered. The patient is agreeable, understanding of the treatment plan and alternatives, and wishes to proceed with the treatment plan. (2) Osteomyelitis of toe: (3) Cellulitis of right lower limb: History of Present Illness Reason for Consultation: right great toe infection Attending Physician: Joseph Lizama DO History of Present Illness 70 yo male consulted for possible osteomyelitis right great toe, has h/o Renal Failure, LLE Cellulitis, CHF, Chronic Anemia, CKD III, CVA, DDD, Depression, DM II, DM Neuropathy, DLD, HTN, Hypomag, Hypophos, MINERVA, Obesity, Pacer, PAD, DFU, Sepsis, Tachy Danish syndrome, and AFIB. presented to the emergency room w/ c/o swelling redness and foul odor of his great toe. he states he noticed an ulcer a few weeks ago. previously had part of his 2nd toe right foot amputated as well. He was caring for it with some cream that he had been given from the wound center for previous infections. Over the weekend, the area got more erythematous and swollen. Home health apparently had evaluated the foot and were worried about cellulitis. They reported maggots in the wound. The patient had chills over the weekend. Allergies Allergy/AdvReac Type Severity Reaction Status Date / Time No Known Allergies Allergy Verified 08/11/20 18:49 Home Medications Medication Instructions Recorded Confirmed Type Flintstones Complete (iron) 1 tab PO PM #0 04/11/13 08/11/20 History atorvastatin 40 mg PO PM #0 tab 01/08/17 08/11/20 History warfarin 3 mg MOWEFR #0 tab 01/08/17 08/11/20 History cholecalciferol (vitamin D3) 2,000 unit PO PM 10/18/17 08/11/20 History [Vitamin D3] cyanocobalamin (vitamin B-12) 1,000 mcg PO PM 05/06/19 08/11/20 History furosemide 20 mg PO MOWEFR 05/06/19 08/11/20 History furosemide 40 mg PO SUTUTHSA 05/06/19 08/11/20 History tamsulosin 0.4 mg PO PM 05/06/19 08/11/20 History magnesium oxide 400 mg PO BID 09/26/19 08/11/20 History Jardiance 10 mg PO DAILY 11/04/19 08/11/20 History betamethasone dipropionate 1 applic TOPICAL DAILY PRN 11/04/19 08/11/20 History warfarin 1.5 mg PO SUTUTHSA 11/04/19 08/11/20 History aspirin 81 mg PO QPM 08/11/20 08/11/20 History doxycycline hyclate 100 mg PO BID 08/11/20 08/11/20 History losartan 50 mg PO HS 08/11/20 08/11/20 History triamcinolone acetonide 1 applic TOPICAL BID 08/11/20 08/11/20 History [Aristocort] Patient History Medical History Acute renal failure superimposed on stage 3 chronic kidney disease Atrial fibrillation Cellulitis of left lower extremity CHF (congestive heart failure) Chronic anemia CKD (chronic kidney disease), stage III CVA (cerebral vascular accident) 01/2018; residual right sided weakness Degenerative disc disease Depression Diabetes type 2, controlled Diabetic peripheral neuropathy associated with type 2 diabetes mellitus Dyslipidemia Hypertension Hypomagnesemia Hypophosphatemia Mixed sleep apnea Pacemaker Peripheral arterial disease Personal history of diabetic foot ulcer Pseudomonas infection Sepsis (10/25/13) Tachy-danish syndrome Surgical History Gastric bypass status for obesity Family History Other Cancer Diabetes Hypertension Social History Smoking Status: Never smoker Second Hand Exposure: No; Do You Dip or Chew Tobacco: No; Hx Alcohol Use: Yes Hx Substance Use: No Preferred Language: [place]an 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 Ability: Effective White Shoe Examiner Required: No Beliefs That Will Affect Care: None marital status: Current Living Situation: Alone and Family Current Living Situation Comment: DAUGHTER LIVES UPSTAIRS Other Information That Helps Us Care for You: No Feels Safe at Home: Yes Safety Concerns: Feels Safe At This Time Assistive Devices: Walker Review of Systems Cardiovascular: no chest pain, no dyspnea and no orthopnea Gastrointestinal: no nausea and no vomiting Physical Exam Physical Exam: Vital Signs Temp 36.7 C 08/12/20 07:00 Pulse 62 08/12/20 07:00 Resp 16 08/12/20 07:00 BP 108/67 08/12/20 07:00 Pulse Ox 96 08/12/20 07:00 Intake & Output 08/11/20 08/12/20 08/12/20 18:59 06:59 18:59 Intake Total 1402.5 / 1402.5 Output Total Balance 1402.5 / 1402.5 - Weight 114.4 kg 114.6 kg 114.6 kg Intake: IV 1402.5 / 1402.5 Clindamycin 90 0 mg In Dextrose 112 / 112 5% 50 ml @ 112 mls/hr IV Q8H [facility] Rx#:[id number] Phytonadione 5 mg In Sodium 50.5 / 50.5 Chloride 0.9% 50 ml @ 101 mls/ hr IV ONE ONE Rx#:[id number] Piperacillin/T azobactam 4.5 gm 120 / 120 In 120 ml @ 24 0 mls/hr IV NOW ONE Rx#:[id number] Piperacillin/T azobactam 4.5 gm 120 / 120 In Dextrose 5% 100 ml @ 30 mls/ hr IV Q8H [facility] Rx#:[id number] Sodium Chlorid e 0.9% 1000ML 1, 1000 / 1000 000 ml @ 999 m ls/hr IV .Q1H1M [facility] Rx#:[id number] Output: # Bowel Movement s Other: # Unmeasured Voi ds 1 1 Weight Measureme nt Method Built in Bedscale Built in Bedscale Musculoskeletal: Right lower extremity: There is right foot erythema that extends up the ankle and distal leg, noted 2 ulcers along medial surface and plantar surface of the great toe. There is a foul odor to the foot. chronic venous changes noted as well to the lower extremity. Results & Data ([facility]) Vital Signs (Past 12 Hours) Vital Signs Temp Pulse Pulse Resp BP Pulse Ox 08/12/20 07:00 36.7 C 62 16 108/67 96 08/12/20 03:42 61 26 H 94 Laboratory Results Laboratory Results WBC 9.94 K/uL (4.8-10.8) 08/12/20 05:57 RBC 4.98 M/uL (4.7-6.1) 08/12/20 05:57 Hgb 15.2 g/dL (14.0-18.0) 08/12/20 05:57 Hct 46.0 % (42-52) 08/12/20 05:57 MCV 92.4 fL (80-100) 08/12/20 05:57 MCH 30.5 pg (25-34) 08/12/20 05:57 MCHC 33.0 g/dL (32-36) 08/12/20 05:57 RDW Std Deviation 49.6 fL (36.4-46.3) H 08/12/20 05:57 RDW Coeff of Jason 14.5 % (11.5-14.5) 08/12/20 05:57 Plt Count 184 K/uL (130-400) 08/12/20 05:57 MPV 10.8 fL (7.4-10.4) H 08/12/20 05:57 Immature Gran % (Auto) 0.3 % 08/11/20 17:33 Neut % (Auto) 86.0 % 08/11/20 17:33 Lymph % (Auto) 4.6 % 08/11/20 17:33 [place] % (Auto) 8.8 % 08/11/20 17:33 Eos % (Auto) 0.2 % 08/11/20 17:33 Baso % (Auto) 0.1 % 08/11/20 17:33 Neut # (Auto) 9.49 K/uL (1.4-6.5) H 08/11/20 17:33 Lymph # (Auto) 0.51 K/uL (1.2-3.4) L 08/11/20 17:33 [place] # (Auto) 0.97 K/uL (0.11-0.59) H 08/11/20 17:33 Eos # (Auto) 0.02 K/uL (0-0.5) 08/11/20 17:33 Baso # (Auto) 0.01 K/uL (0-0.2) 08/11/20 17:33 Immature Gran # (Auto) 0.03 K/uL (0.00-0.02) H 08/11/20 17:33 ESR 79 mm/hr (0-20) H 08/11/20 17:33 PT 16.2 Seconds (9.0-12.0) H 08/12/20 05:57 INR 1.7 (0.9-1.1) H 08/12/20 05:57 APTT 40.6 Seconds (21.0-31.0) H 08/11/20 17:33 PTT Ratio 1.5 08/11/20 17:33 Sodium 137 mmol/L (136-145) 08/12/20 05:57 Potassium 3.9 mmol/L (3.5-5.1) 08/12/20 05:57 Chloride 108 mmol/L (98-107) H 08/12/20 05:57 Carbon Dioxide 23 mmol/L (21-32) 08/12/20 05:57 Anion Gap 6.0 (3-11) 08/12/20 05:57 BUN 33 mg/dl (7-18) H 08/12/20 05:57 Creatinine 1.77 mg/dl (0.6-1.4) H 08/12/20 05:57 Est Cr Clr Drug Dosing 51.4 ml/min 08/12/20 05:57 Est GFR ( Amer) 44.7 ml/min 08/12/20 05:57 Est GFR (Non-Af Amer) 38.6 ml/min 08/12/20 05:57 BUN/Creatinine Ratio 18.6 (10-20) 08/12/20 05:57 Glucose 127 mg/dl (70-99) H 08/12/20 05:57 POC Glucose 129 mg/dl (70-99) H 08/12/20 05:45 Estimat Average Glucose 151 mg/dl 08/11/20 17:33 Hemoglobin A1c 6.9 % (4.5-5.6) H 08/11/20 17:33 Lactate 1.5 mmol/L (0.4-2.0) 08/11/20 17:33 Calcium 8.4 mg/dl (8.5-10.1) L 08/12/20 05:57 Magnesium 2.0 mg/dl (1.8-2.4) 08/11/20 17:33 Total Bilirubin 1.3 mg/dl (0.2-1) H 08/11/20 17:33 AST 95 U/L (15-37) H 08/11/20 17:33 ALT 80 U/L (12-78) H 08/11/20 17:33 Alkaline Phosphatase 81 U/L (45-117) 08/11/20 17:33 C-Reactive Protein 18.60 mg/dl (0-0.29) H 08/11/20 17:33 Total Protein 7.0 gm/dl (6.4-8.2) 08/11/20 17:33 Albumin 2.5 gm/dl (3.4-5.0) L 08/11/20 17:33 Globulin 4.5 gm/dl (2.5-4.0) H 08/11/20 17:33 Albumin/Globulin Ratio 0.6 (0.9-2) L 08/11/20 17:33 Procalcitonin 0.29 ng/ml (0-0.5) 08/11/20 17:33 Urine Color Dark Yellow 08/11/20 17:11 Urine Appearance Cloudy (Clear) A 08/11/20 17:11 Urine pH 5.0 (4.5-7.5) 08/11/20 17:11 Ur Specific [place] 1.028 (1.000-1.030) 08/11/20 17:11 Urine Protein 3+ (Negative) H 08/11/20 17:11 Urine Glucose (UA) 3+ (Negative) H 08/11/20 17:11 Urine Ketones Trace (Negative) H 08/11/20 17:11 Urine Blood 2+ (Negative) H 08/11/20 17:11 Urine Nitrite Negative (Negative) 08/11/20 17:11 Urine Bilirubin 1+ (Negative) H 08/11/20 17:11 Urine Urobilinogen Negative (Negative) 08/11/20 17:11 Ur Leukocyte Esterase 1+ (Negative) H 08/11/20 17:11 Urine WBC (Auto) >30 /hpf (0-5) H 08/11/20 17:11 Urine RBC (Auto) 0-4 /hpf (0-4) 08/11/20 17:11 U Hyaline Cast (Auto) 1-5 /lpf (0-5) 08/11/20 17:11 U Epithel Cells (Auto) >30 /lpf (0-5) H 08/11/20 17:11 Urine Bacteria (Auto) 4+ (Negative) H 08/11/20 17:11 Urine Yeast Not Reportable 08/11/20 17:11 COVID-19 Eval Order Covid19 at [facility] 08/11/20 18:09 SARS-CoV-2 (PCR) NEGATIVE (Negative) 08/11/20 18:09 Hepatitis C Ab Screen Neg (Neg) 08/12/20 05:57 Impressions Chest X-Ray 08/11/20 17:38 XR chest 1V portable CLINICAL HISTORY: SEPSIS COMPARISON STUDY: 05/07/2019 FINDINGS: The heart is mildly enlarged. 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 There is no failure. There is no focal pulmonary consolidation. There are no pleural effusions. Postsurgical changes are present within the cervical spine.[ IMPRESSION: No active disease in the chest. ACT 112: Negative or not required by law. Electronically signed by: Timo Delgado M.D. 08/11/2020 5:[address] 08/11/20 17:40 CT foot RT wo con CT DOSE: 251.09 mGy.cm CLINICAL HISTORY: Infection. Possible osteomyelitis TECHNIQUE: Helical images were acquired in the transverse plane. Sagittal coronal reformatted images were acquired. A dose lowering technique was utilized adhering to the principles of ALARA. COMPARISON STUDY: None. FINDINGS: There are moderately extensive vascular calcifications. There are moderate degenerative changes within the midfoot. There is prominent calcaneal spurring. There is soft tissue gas adjacent to the proximal distal phalanges of the great toe. There is medullary gas present within the distal phalanx of the great toe, as well as gas within the distal aspect of the proximal phalanx of the great toe. The findings are consistent with osteomyelitis. There is diffuse soft tissue edema of the foot. IMPRESSION: 1. Soft tissue gas present within the tissues surrounding the proximal distal phalanges of the great toe. The findings are consistent with a necrotizing fasciitis 2. Intramedullary gas involving the distal phalanx of the great toe and distal aspect of the proximal phalanx the great toe. This is an ancillary finding reported in osteomyelitis, and therefore osteomyelitis is strongly suspected. Surgical consultation recommended. ACT 112: Positive. There are findings on this exam that require communication between the performing entity and the patient following Patient Test Result Information Act ([place] Act 112) guidelines. Electronically signed by: Timo Delgado M.D. 08/11/2020 7:[address] foot RT wo con CT DOSE: 251.09 mGy.cm CLINICAL HISTORY: Infection. Possible osteomyelitis TECHNIQUE: Helical images were acquired in the transverse plane. Sagittal coronal reformatted images were acquired. A dose lowering technique was utilized adhering to the principles of ALARA. COMPARISON STUDY: None. FINDINGS: There are moderately extensive vascular calcifications. There are moderate degenerative changes within the midfoot. There is prominent calcaneal spurring. There is soft tissue gas adjacent to the proximal distal phalanges of the great toe. There is medullary gas present within the distal phalanx of the great toe, as well as gas within the distal aspect of the proximal phalanx of the great toe. The findings are consistent with osteomyelitis. There is diffuse soft tissue edema of the foot.
[2020-08-12] MEDS ORDERED: MIDAZOLAM HCL 1 MG/ML 2ML VIAL ONE (12:32)
[2020-08-12] MEDS ORDERED: LIDOCAINE 2% 2 ML VIAL/AMP(20MG/ML) INFIL ONE (12:32)
[2020-08-12] MEDS ORDERED: fentaNYL citrate 100 MCG/2 ML VIAL ONE (12:32)
[2020-08-12] MEDS ORDERED: ONDANSETRON INJ 2 MG/ML 2 ML VIAL ONE (12:32)
[2020-08-12] MEDS ORDERED: PROPOFOL IV EMULSION 10 MG/ML 20 ML VIAL IV ONE (12:32)
[2020-08-12] MEDS ORDERED: DEXAMETHASONE SOD INJ 4 MG/ML VIAL ONE (12:32)
[2020-08-12 13:28] LABS: INR 1.4 (0.9-1.1); Prothrombin Time 13.8 Seconds (9.0-12.0)
[2020-08-12] MEDS ORDERED: LIDOCAINE 1% LOCAL 20 ML VIAL ONE ×2 (13:37→15:22)
--- NOTE | 2020-08-12 14:30 | History & Physical Bridge Note ---
Date of Service August 12, 2020 History & Physical Bridge Note I have examined the patient, reviewed the History & Physical and in the interval since the performance of the History & Physical I have noted the following changes of clinical significance: no changes noted
[2020-08-12] MEDS ORDERED: ePHEDrine sulfate 50 MG/ML SYR ONE (15:24)
[2020-08-12] MEDS ORDERED: PHENYLEPHRINE 100MCG/ML 5ML SYR ONE (15:24)
--- NOTE | 2020-08-12 15:42 | Operative Report ---
Post Operative Report Pre & Post Diagnosis Operation Date: 08/12/20 07:00 Pre-Op Diagnosis: Right Foot/Leg Cellulitis Post-Op Diagnosis: Right Foot/Leg Cellulitis I identified the patient and participated in the time-out.: Yes Procedure Operation Date: 08/12/20 07:00 Actual Procedures p Right Great Toe Amputation(Right) through mid shaft proximal phalanx great toe- Jhony Yung DO Surgeon Jhony Yung DO Bear Keeper Greg VAZQUEZ Estimated Blood Loss 5 Findings Consistent with Post-Op Diagnosis Patient presents with necrotic osteomyelitic right great toe distal phalanx distal third of the proximal phalanx with necrosis of skin for amputation Specimens Necrotic great toe Anesthesia Type MAC Complications none Disposition Accompanied Patient To Recovery: No Disposition: Recovery Room Indications Patient presents with cellulitis and necrotic right great toe with osteomyelitis distal phalanx distal aspect of proximal phalanx Description of Procedure After initiation of sedation the right lower extremity socially prepped and draped of the necrotic distal phalanx was removed utilizing 15 blade back to bleeding healthy tissue through the middle aspect of the proximal phalanx of the great toe skin was loosely closed with 3-0 nylon the wound had been irrigated with copious muscle sterile saline solution via pulse lavage sterile compressive dressings placed patient was taken recovery room stable condition stop report dictated by Dilshad. I attest to the content of the Intraoperative Record and any orders documented therein. Any exceptions are noted below.
[2020-08-12] MEDS ORDERED: NALOXONE HCL 0.4 MG/1 ML VIAL/CARP IV PRN (16:30)
[2020-08-12] MEDS ORDERED: HYDROmorphone INJ 0.5 MG/0.5 ML SYR IV PRN (16:30)
--- NOTE | 2020-08-12 16:52 | Anesthesiology Progress Note ---
Date of Service August 12, 2020 Anesthesia Post Procedure Vital Signs Vital Signs: Temp Pulse Pulse Pulse Resp BP BP 08/12/20 16:10 36.9 C 65 20 08/12/20 16:00 62 20 08/12/20 15:50 60 20 08/12/20 15:44 36.3 C L 63 20 08/12/20 12:10 36.7 C 60 18 110/63 08/12/20 07:00 36.7 C 62 16 108/67 08/12/20 03:42 61 26 H 08/11/20 23:12 55 L 19 08/11/20 22:45 36.5 C 55 L 18 114/71 08/11/20 22:13 36.5 C 63 18 120/76 08/11/20 21:57 36.5 C 66 18 133/80 08/11/20 21:42 37.1 C 18 134/74 08/11/20 20:28 36.9 C 70 18 124/74 08/11/20 20:18 37.3 C 18 143/83 H 08/11/20 19:15 61 34 H 08/11/20 19:00 64 33 H 08/11/20 18:45 61 38 H 08/11/20 18:30 61 23 08/11/20 18:15 60 35 H 08/11/20 18:00 61 20 08/11/20 17:45 61 27 H 08/11/20 17:38 70 14 08/11/20 17:30 60 33 H 08/11/20 17:15 62 18 08/11/20 17:11 61 25 H 08/11/20 16:53 37.6 C H 72 18 125/77 BP Pulse Ox 08/12/20 16:10 104/56 L 95 08/12/20 16:00 104/61 95 08/12/20 15:50 102/53 L 96 08/12/20 15:44 96/57 L 97 08/12/20 12:10 97 08/12/20 07:00 96 08/12/20 03:42 94 08/11/20 23:12 96 08/11/20 22:45 95 08/11/20 22:13 96 08/11/20 21:57 95 08/11/20 21:42 97 08/11/20 20:28 95 08/11/20 20:18 97 08/11/20 19:15 08/11/20 19:00 08/11/20 18:45 08/11/20 18:30 08/11/20 18:15 08/11/20 18:00 08/11/20 17:45 08/11/20 17:38 95 08/11/20 17:30 08/11/20 17:15 08/11/20 17:11 08/11/20 16:53 95 Transfer of Care Handoff Completed per policy Notes Mental Status: alert / awake / arousable Patient Amnestic to Procedure: Yes Nausea / Vomiting: adequately controlled Pain: adequately controlled Airway Patency, RR, SpO2: stable & adequate BP & HR: stable & adequate Hydration State: stable & adequate Anesthetic Complications: no major complications apparent
[2020-08-12] MEDS ORDERED: DAPTOmycin 450 MG in SYRINGE 0 ML IV SCH (19:00)
[2020-08-12] MEDS: CHOLECALCIFEROL 1,000 UNITS 25 MCG TAB PO SCH (19:51)
[2020-08-12] MEDS: MULTIVITAMIN CHEWABLE TAB PO SCH (19:51)
[2020-08-12] MEDS: ASPIRIN 81 MG ECTAB PO SCH (19:52)
[2020-08-12] MEDS: TAMSULOSIN HCL 0.4 MG CAP PO SCH (19:52)
[2020-08-12] MEDS: CYANOCOBALAMIN 500 MCG TABLET (VITAMIN B-12) PO SCH (19:52)
[2020-08-12] MEDS: DOCUSATE SODIUM 100 MG CAP PO SCH (19:52)
[2020-08-12] MEDS: ATORVASTATIN 40 MG TAB PO SCH (19:52)
[2020-08-12] MEDS: LOSARTAN POTASSIUM 50 MG TAB PO SCH (19:52)
[2020-08-12] MEDS: DAPTOmycin 550 MG in SYRINGE 0 ML IV SCH (20:37)
[2020-08-12] MEDS: NYSTATIN POWDER 15GM BTL EXT SCH (20:38)
[2020-08-13] MEDS: PIPERACILLIN/TAZOBACTAM 4.5 GM in DEXTROSE 5% 100 ML IV SCH ×2 (00:05→18:57)
[2020-08-13] MEDS: oxyCODONE HCL IR 5 MG TAB (IMMEDIATE RELEASE) PO PRN ×2 (03:36→18:26)
[2020-08-13] MEDS: CLINDAMYCIN 900 MG in DEXTROSE 5% 50 ML IV SCH (05:45)
[2020-08-13 06:14] LABS: Hematocrit (blood only) 40.5 % (42-52); Hemoglobin 13.7 g/dL (14.0-18.0); Mean Corpuscular Hemoglobin 30.6 pg (25-34); Mean Corpuscular Hgb Conc 33.8 g/dL (32-36); Mean Corpuscular Volume 90.4 fL (80-100); Mean Platelet Volume 10.7 fL (7.4-10.4); Platelet Count 182 K/uL (130-400); RDW Coefficient of Variation 14.5 % (11.5-14.5); Red Blood Count 4.48 M/uL (4.7-6.1); White Blood Count 8.12 K/uL (4.8-10.8)
[2020-08-13 06:23] LABS: INR 1.4 (0.9-1.1); Prothrombin Time 13.8 Seconds (9.0-12.0)
[2020-08-13 06:50] LABS: Calcium 7.9 mg/dl (8.5-10.1); Creatinine Clr Calc Pharmacy 52.9 ml/min; Est GFR (African American) 46.3 ml/min; Potassium 3.8 mmol/L (3.5-5.1)
--- NOTE | 2020-08-13 08:23 | Hospitalist Progress Note ---
Date of Service August 13, 2020 Assessment & Plan (1) Necrotizing fasciitis: (2) Osteomyelitis of toe: (3) Ulcer of left great toe due to diabetes mellitus: (4) Cellulitis of right lower limb: (5) Leukocytosis: (6) Diabetic peripheral neuropathy associated with type 2 diabetes mellitus: (7) Venous insufficiency: (8) Peripheral arterial disease: (9) Hypertension: (10) Mixed sleep apnea: (11) CKD (chronic kidney disease), stage III: (12) Dyslipidemia: (13) Pacemaker: s/p R Great Toe Amputation, Continue Daptomycin and Zosyn, Continue OP meds where appropriate, Monitor daily labs, Ortho on case, ID eval for Abx, Follow Cultures, labs checked. CT LE-IMPRESSION: 1. Soft tissue gas present within the tissues surrounding the proximal distal phalanges of the great toe. The findings are consistent with a necrotizing fasciitis 2. Intramedullary gas involving the distal phalanx of the great toe and distal aspect of the proximal phalanx the great toe. This is an ancillary finding reported in osteomyelitis, and therefore osteomyelitis is strongly suspected. Surgical consultation recommended. ROS-No Headache, No Visual Changes, No Nausea, No Vomiting, No Fever, + Chills, No Neck Pain or Stiffness, No Chest Pain, No Palpitations, No SOB, No ROBERTS, No Cough, No Sputum, No Wheezing, No Abdominal Pain, No Diarrhea, No Hematemesis, No Hemoptysis, No Unexpected Weight Loss, No Flank pain, No Melena, No Hematochezia, No Frequency, No Urgency, No Burning, No Hematuria, No Rashes, No Diaphoresis. Appetite is Normal, Swollen Red RLE c Ulcer on R Great toe, draining pus, Foul Smell Physical Exam Gen-AAO x 3, NAD, Afebrile, Obese Head-NCAT, EOMI, PERRLA, Anicteric Sclera, No Posterior Pharyngeal Erythema Neck-Supple, No JVD, No Thyromegaly, No Masses, No LAD, No Bruits Lungs-Clear to Auscultation Bilaterally, No Rales, No Rhonchi, No Wheezing, No Crepitus Chest-No S4, +S1, +S2, No S3, No Murmurs, No Rubs, No Gallops, No Ectopy Abdomen-Soft, Bowel Sounds Present, Non Tender, Non Distended, No Hepatomegaly, No Splenomegaly, No Palpable Masses, No Rebound, No Rigidity, No Guarding Musculoskeletal-Full Range of Motion Bilaterally, No CVAT Extremities-Swollen Erythematous RLE c Macerated Ulcer on R Great toe, draining pus, Foul Smelling Nuero-Cranial Nerves II-XII grossly intact, Motor WNL, DTRs WNL, Strength WNL, Non Focal Psych-Normal Mood Admission and Anticipated Discharge Date Admission Date: August 11, 2020 Results & Data Results & Data ([facility]) Vital Signs (Past 12 Hours) Vital Signs Temp Pulse Pulse Resp BP BP Pulse Ox 08/13/20 08:18 36.5 C 63 21 100/64 93 08/13/20 03:33 36.6 C 62 16 109/65 96 08/12/20 22:50 36.9 C 60 16 99/61 L 95
[2020-08-13] MEDS: FUROSEMIDE 40 MG TAB PO SCH (08:32)
[2020-08-13] MEDS: DOCUSATE SODIUM 100 MG CAP PO SCH ×2 (08:33→20:26)
[2020-08-13] MEDS: MAGNESIUM OXIDE 400 MG TAB PO SCH ×2 (08:33→20:27)
[2020-08-13] MEDS: INSULIN ASPART 100 UNITS/ML 3 ML PEN SC SCH ×4 (08:37→21:01)
[2020-08-13] MEDS: NYSTATIN POWDER 15GM BTL EXT SCH ×2 (09:44→20:28)
[2020-08-13] MEDS: TRIAMCINOLONE ACET 0.1% CR 15 GM TUBE TOP SCH ×3 (09:44→20:30)
--- NOTE | 2020-08-13 09:55 | Orthopedic Progress Note ---
Date of Service August 13, 2020 Assessment & Plan (1) Osteomyelitis of toe: Postoperative day 1 status post right great toe amputation. PT/OT protocols. Weightbearing as tolerated on the heel only on the right foot. Discussed with patient if he was still having discomfort with his that he could be heel down for balance only. Plan for dressing change tomorrow. We will discuss with Dr. Yung but if all infection removed during surgery, patient may or may not require IV antibiotics depending on how he responds with his cellulitis. Continue current IV antibiotics at this time. Admission and Anticipated Discharge Date Admission Date: August 11, 2020 Supervising Physician Co-Signing Physician Notes Patient seen and examined. Agree with GEORGE Velasquez's note as above. He denies any pain in his right great toe area. He was able to ambulate in the room today. Subjective Postop day 1 Patient currently sitting up in bed awake and alert. He is eating his breakfast. No complaints this morning. Pain is controlled. Physical Exam Physical Exam: Patient has a large bulky dressing over the whole of the foot. No drainage on the dressing at this time. Dressing left intact. Results & Data ([facility]) Vital Signs (Past 12 Hours) Vital Signs Temp Pulse Pulse Resp BP BP Pulse Ox 08/13/20 08:18 36.5 C 63 21 100/64 93 08/13/20 03:33 36.6 C 62 16 109/65 96 08/12/20 22:50 36.9 C 60 16 99/61 L 95 Laboratory Results Laboratory Results WBC 8.12 K/uL (4.8-10.8) 08/13/20 05:53 RBC 4.48 M/uL (4.7-6.1) L 08/13/20 05:53 Hgb 13.7 g/dL (14.0-18.0) L 08/13/20 05:53 Hct 40.5 % (42-52) L 08/13/20 05:53 MCV 90.4 fL (80-100) 08/13/20 05:53 MCH 30.6 pg (25-34) 08/13/20 05:53 MCHC 33.8 g/dL (32-36) 08/13/20 05:53 RDW Std Deviation 48.0 fL (36.4-46.3) H 08/13/20 05:53 RDW Coeff of Jason 14.5 % (11.5-14.5) 08/13/20 05:53 Plt Count 182 K/uL (130-400) 08/13/20 05:53 MPV 10.7 fL (7.4-10.4) H 08/13/20 05:53 Immature Gran % (Auto) 0.3 % 08/11/20 17:33 Neut % (Auto) 86.0 % 08/11/20 17:33 Lymph % (Auto) 4.6 % 08/11/20 17:33 [place]er % (Auto) 8.8 % 08/11/20 17:33 Eos % (Auto) 0.2 % 08/11/20 17:33 Baso % (Auto) 0.1 % 08/11/20 17:33 Neut # (Auto) 9.49 K/uL (1.4-6.5) H 08/11/20 17:33 Lymph # (Auto) 0.51 K/uL (1.2-3.4) L 08/11/20 17:33 [place]er # (Auto) 0.97 K/uL (0.11-0.59) H 08/11/20 17:33 Eos # (Auto) 0.02 K/uL (0-0.5) 08/11/20 17:33 Baso # (Auto) 0.01 K/uL (0-0.2) 08/11/20 17:33 Immature Gran # (Auto) 0.03 K/uL (0.00-0.02) H 08/11/20 17:33 ESR 79 mm/hr (0-20) H 08/11/20 17:33 PT 13.8 Seconds (9.0-12.0) H 08/13/20 05:53 INR 1.4 (0.9-1.1) H 08/13/20 05:53 APTT 40.6 Seconds (21.0-31.0) H 08/11/20 17:33 PTT Ratio 1.5 08/11/20 17:33 Sodium 136 mmol/L (136-145) 08/13/20 05:53 Potassium 3.8 mmol/L (3.5-5.1) 08/13/20 05:53 Chloride 108 mmol/L (98-107) H 08/13/20 05:53 Carbon Dioxide 22 mmol/L (21-32) 08/13/20 05:53 Anion Gap 6.0 (3-11) 08/13/20 05:53 BUN 33 mg/dl (7-18) H 08/13/20 05:53 Creatinine 1.72 mg/dl (0.6-1.4) H 08/13/20 05:53 Est Cr Clr Drug Dosing 52.9 ml/min 08/13/20 05:53 Est GFR ( Amer) 46.3 ml/min 08/13/20 05:53 Est GFR (Non-Af Amer) 40.0 ml/min 08/13/20 05:53 BUN/Creatinine Ratio 19.0 (10-20) 08/13/20 05:53 Glucose 120 mg/dl (70-99) H 08/13/20 05:53 POC Glucose 123 mg/dl (70-99) H 08/13/20 08:20 Estimat Average Glucose 151 mg/dl 08/11/20 17:33 Hemoglobin A1c 6.9 % (4.5-5.6) H 08/11/20 17:33 Lactate 1.5 mmol/L (0.4-2.0) 08/11/20 17:33 Calcium 7.9 mg/dl (8.5-10.1) L 08/13/20 05:53 Magnesium 2.0 mg/dl (1.8-2.4) 08/11/20 17:33 Total Bilirubin 1.3 mg/dl (0.2-1) H 08/11/20 17:33 AST 95 U/L (15-37) H 08/11/20 17:33 ALT 80 U/L (12-78) H 08/11/20 17:33 Alkaline Phosphatase 81 U/L (45-117) 08/11/20 17:33 C-Reactive Protein 18.60 mg/dl (0-0.29) H 08/11/20 17:33 Total Protein 7.0 gm/dl (6.4-8.2) 08/11/20 17:33 Albumin 2.5 gm/dl (3.4-5.0) L 08/11/20 17:33 Globulin 4.5 gm/dl (2.5-4.0) H 08/11/20 17:33 Albumin/Globulin Ratio 0.6 (0.9-2) L 08/11/20 17:33 Procalcitonin 0.29 ng/ml (0-0.5) 08/11/20 17:33 Urine Color Dark Yellow 08/11/20 17:11 Urine Appearance Cloudy (Clear) A 08/11/20 17:11 Urine pH 5.0 (4.5-7.5) 08/11/20 17:11 Ur Specific [place] 1.028 (1.000-1.030) 08/11/20 17:11 Urine Protein 3+ (Negative) H 08/11/20 17:11 Urine Glucose (UA) 3+ (Negative) H 08/11/20 17:11 Urine Ketones Trace (Negative) H 08/11/20 17:11 Urine Blood 2+ (Negative) H 08/11/20 17:11 Urine Nitrite Negative (Negative) 08/11/20 17:11 Urine Bilirubin 1+ (Negative) H 08/11/20 17:11 Urine Urobilinogen Negative (Negative) 08/11/20 17:11 Ur Leukocyte Esterase 1+ (Negative) H 08/11/20 17:11 Urine WBC (Auto) >30 /hpf (0-5) H 08/11/20 17:11 Urine RBC (Auto) 0-4 /hpf (0-4) 08/11/20 17:11 U Hyaline Cast (Auto) 1-5 /lpf (0-5) 08/11/20 17:11 U Epithel Cells (Auto) >30 /lpf (0-5) H 08/11/20 17:11 Urine Bacteria (Auto) 4+ (Negative) H 08/11/20 17:11 Urine Yeast Not Reportable 08/11/20 17:11 COVID-19 Eval Order Covid19 at [facility] 08/11/20 18:09 SARS-CoV-2 (PCR) NEGATIVE (Negative) 08/11/20 18:09 Hepatitis C Ab Screen Neg (Neg) 08/12/20 05:57 Impressions Chest X-Ray 08/11/20 17:38 XR chest 1V portable CLINICAL HISTORY: SEPSIS COMPARISON STUDY: 05/07/2019 FINDINGS: The heart is mildly enlarged. 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 There is no failure. There is no focal pulmonary consolidation. There are no pleural effusions. Postsurgical changes are present within the cervical spine.[ IMPRESSION: No active disease in the chest. ACT 112: Negative or not required by law. Electronically signed by: Timo Delgado M.D. 08/11/2020 5:[address] 08/11/20 17:40 CT foot RT wo con CT DOSE: 251.09 mGy.cm CLINICAL HISTORY: Infection. Possible osteomyelitis TECHNIQUE: Helical images were acquired in the transverse plane. Sagittal coronal reformatted images were acquired. A dose lowering technique was utilized adhering to the principles of ALARA. COMPARISON STUDY: None. FINDINGS: There are moderately extensive vascular calcifications. There are moderate degenerative changes within the midfoot. There is prominent calcaneal spurring. There is soft tissue gas adjacent to the proximal distal phalanges of the great toe. There is medullary gas present within the distal phalanx of the great toe, as well as gas within the distal aspect of the proximal phalanx of the great toe. The findings are consistent with osteomyelitis. There is diffuse soft tissue edema of the foot. IMPRESSION: 1. Soft tissue gas present within the tissues surrounding the proximal distal phalanges of the great toe. The findings are consistent with a necrotizing fasciitis 2. Intramedullary gas involving the distal phalanx of the great toe and distal aspect of the proximal phalanx the great toe. This is an ancillary finding reported in osteomyelitis, and therefore osteomyelitis is strongly suspected. Surgical consultation recommended. ACT 112: Positive. There are findings on this exam that require communication between the performing entity and the patient following Patient Test Result Information Act ([place] Act 112) guidelines. Electronically signed by: Timo Delgado M.D. 08/11/2020 7:44 PM
[2020-08-13] MEDS: cefTRIAXone SODIUM 2,000 MG in DEXTROSE 5% 50 ML IV SCH (10:01)
--- NOTE | 2020-08-13 11:27 | Electrocardiogram Report ---
Test Reason : Blood Pressure : / mmHG Vent. Rate : 061 BPM Atrial Rate : 357 BPM P-R Int : 000 ms QRS Dur : 196 ms QT Int : 502 ms P-R-T Axes : 000 -78 106 degrees QTc Int : 505 ms Ventricular-paced rhythm Abnormal ECG When compared with ECG of 06-MAY-2019 11:42, Premature ventricular complexes are no longer Present Vent. rate has decreased BY 7 BPM Confirmed by Amarjit Oliveros ([id number]) on 08/13/2020 11:27:01 AM Referred By: REFERRED SELF Confirmed By:Amarjit Oliveros
[2020-08-13] MEDS: DAPTOmycin 550 MG in SYRINGE 0 ML IV SCH (18:27)
[2020-08-13] MEDS: ATORVASTATIN 40 MG TAB PO SCH (20:26)
[2020-08-13] MEDS: ASPIRIN 81 MG ECTAB PO SCH (20:26)
[2020-08-13] MEDS: CHOLECALCIFEROL 1,000 UNITS 25 MCG TAB PO SCH (20:26)
[2020-08-13] MEDS: MULTIVITAMIN CHEWABLE TAB PO SCH (20:27)
[2020-08-13] MEDS: CYANOCOBALAMIN 500 MCG TABLET (VITAMIN B-12) PO SCH (20:27)
[2020-08-13] MEDS: TAMSULOSIN HCL 0.4 MG CAP PO SCH (20:28)
[2020-08-13] MEDS: LOSARTAN POTASSIUM 50 MG TAB PO SCH ×2 (20:34→21:37)
[2020-08-14] MEDS: oxyCODONE HCL IR 5 MG TAB (IMMEDIATE RELEASE) PO PRN (02:57)
[2020-08-14 06:28] LABS: Hematocrit (blood only) 40.7 % (42-52); Hemoglobin 13.5 g/dL (14.0-18.0); Mean Corpuscular Hemoglobin 30.3 pg (25-34); Mean Corpuscular Hgb Conc 33.2 g/dL (32-36); Mean Corpuscular Volume 91.5 fL (80-100); Platelet Count 219 K/uL (130-400); RDW Coefficient of Variation 14.6 % (11.5-14.5); RDW Standard Deviation 49.4 fL (36.4-46.3); Red Blood Count 4.45 M/uL (4.7-6.1)
[2020-08-14 06:57] LABS: BUN Creatinine Ratio 18.4 (10-20); Calcium 7.8 mg/dl (8.5-10.1); Creatinine Clr Calc Pharmacy 46.9 ml/min; Est GFR (Non-African American) 34.6 ml/min
[2020-08-14] MEDS: cefTRIAXone SODIUM 2,000 MG in DEXTROSE 5% 50 ML IV SCH (08:18)
[2020-08-14] MEDS: DOCUSATE SODIUM 100 MG CAP PO SCH ×2 (08:22→20:44)
[2020-08-14] MEDS: MAGNESIUM OXIDE 400 MG TAB PO SCH ×2 (08:22→20:41)
[2020-08-14] MEDS: FUROSEMIDE 20 MG TAB PO SCH (08:22)
--- NOTE | 2020-08-14 08:23 | Orthopedic Progress Note ---
Date of Service August 14, 2020 Assessment & Plan (1) Osteomyelitis of toe: Postoperative day 2 status post right great toe amputation. PT/OT protocols. Weightbearing as tolerated on the heel only on the right foot. Discussed with patient if he was still having discomfort with his that he could be heel down for balance only. Continue daily dressing changes. No further surgery needed at this time. I discussed the case with Dr. Yung. All infected bone removed. Amputation site well above the infected area. Consider oral antibiotics for 10 to 14 days with this wound unless IV antibiotics deemed necessary by hospitalist service. Follow-up with Dr. Yung and or Dr. Weiss in 10 to 14 days. Admission and Anticipated Discharge Date Admission Date: August 11, 2020 Subjective Patient sitting up in bed awake and alert. Watching TV. No complaints this morning. Pain is controlled. Physical Exam Physical Exam: Dressings removed. Patient with neuropathy and does not have much in the way of sensation in the operative area. Mild erythema around the incision site. Incision site is intact with some mild bloody drainage noted on the dressing. There is no purulence. There is no serous discharge. Continues with some mild cellulitis on the dorsum of the foot with venous stasis changes and swelling of the extremity above the ankle. Wound redressed. Results & Data ([facility]) Vital Signs (Past 12 Hours) Vital Signs Temp Pulse Resp BP Pulse Ox 08/14/20 07:06 36.7 C 61 18 101/58 L 94 08/13/20 22:33 36.6 C 61 16 113/69 93 08/13/20 20:33 60 111/68
[2020-08-14] MEDS: TRIAMCINOLONE ACET 0.1% CR 15 GM TUBE TOP SCH ×2 (08:35→20:43)
[2020-08-14] MEDS: NYSTATIN POWDER 15GM BTL EXT SCH ×2 (08:36→20:43)
[2020-08-14] MEDS: INSULIN ASPART 100 UNITS/ML 3 ML PEN SC SCH ×4 (09:18→20:39)
[2020-08-14] MEDS ORDERED: WARFARIN SOD 3 MG TAB PO SCH (16:00)
[2020-08-14] MEDS ORDERED: SODIUM CHLORIDE 0.9% 1000ML 1,000 ML IV ONE (16:40)
[2020-08-14] MEDS: DAPTOmycin 550 MG in SYRINGE 0 ML IV SCH (18:09)
--- NOTE | 2020-08-14 18:18 | Hospitalist Progress Note ---
Date of Service August 14, 2020 Assessment & Plan (1) Necrotizing fasciitis: (2) Osteomyelitis of toe: (3) Ulcer of left great toe due to diabetes mellitus: (4) Cellulitis of right lower limb: (5) Leukocytosis: (6) Diabetic peripheral neuropathy associated with type 2 diabetes mellitus: (7) Venous insufficiency: (8) Peripheral arterial disease: (9) Hypertension: (10) Mixed sleep apnea: (11) CKD (chronic kidney disease), stage III: (12) Dyslipidemia: (13) Pacemaker: Right great toe osteomyelitis Necrotizing fasciitis S/P right great toe amputation POD #2 --Iggy CT:Soft tissue gas present within the tissues surrounding the proximal distal phalanges of the great toe. The findings are consistent with a necrotizing fasciitis. Intramedullary gas involving the distal phalanx of the great toe and distal aspect of the proximal phalanx the great toe. This is an ancillary finding reported in osteomyelitis, and therefore osteomyelitis is strongly suspected. Surgical consultation recommended. Appreciate orthopedics input Blood Cx:No growth to date Continue IV antibiotics for now Dapto, Rocephin) Plan to continue antibiotics for 10 to 14-day course as recommended by Ortho ID consult pending Need to follow-up with Dr. Weiss/ and 2 weeks upon discharge Continue daily dressing UTI Urine Cx: E. coli Continue Rocephin DM II HbA1C:6.9 Hold Home regimen Continue Insulin therapy Monitor BGs Atrial fibrillation Rate control Resume Coumadin for anticoagulation Monitor INR: 1.4 H/O CVA Chronic right-sided numbness as per patient Continue aspirin, statin H/O CHF Chronic venous stasis insufficiency Continue home diuretics Monitor volume status CKD III Baseline creatinine 1.5-1.9 as per records Monitor renal function Avoid nephrotoxic agents as able DVT Px: Resume Coumadin Code Status Full code Disposition Likely Home with Home Health Admission and Anticipated Discharge Date Admission Date: August 11, 2020 Subjective Patient is seen and examined at bedside Reports chronic right sided numbness from prior CVA Denies any foot pain at surgical site States having dysuria Denies chest pain, shortness of breath, dizziness, nausea, abdominal pain Offers no other complaints Review of Systems Review of Systems: All systems reviewed & are unremarkable except as noted in HPI & below Physical Exam Physical Exam: Physical Exam: Vitals signs as noted above General Appearance:Moderately built and nourished, no apparent distress Head: normocephalic, Atraumatic Eyes: normal inspection, EOMI Neck: supple, Trachea midline Respiratory/Chest: Normal breath sounds, CTA Cardiovascular: S1, S2, No murmur Abdomen/GI:Soft, Non tender, Bowel sounds present Extremities/Musculoskeletal:normal inspection, B/L LE edema, Right Foot in dressing Neurologic/Psych:AAOX3, grossly no focal neurological deficits Skin: normal color, warm Results & Data Results & Data ([facility]) Vital Signs (Past 12 Hours) Vital Signs Temp Pulse Pulse Pulse Resp BP BP 08/14/20 16:07 36.6 C 61 18 125/69 08/14/20 08:30 36.7 C 61 70 61 18 101/58 L 104/62 08/14/20 07:06 36.7 C 61 18 101/58 L Pulse Ox 08/14/20 16:07 95 08/14/20 08:30 94 08/14/20 07:06 94 Laboratory Results Short CBC 08/14/20 Range/Units 05:45 WBC 8.70 (4.8-10.8) K/uL Hgb 13.5 L (14.0-18.0) g/dL Hct 40.7 L (42-52) % Plt Count 219 (130-400) K/uL BMP 08/14/20 05:45 Sodium 134 L Potassium 4.0 Chloride 106 Carbon Dioxide 23 BUN 36 H Creatinine 1.94 H Glucose 123 H Calcium 7.8 L
[2020-08-14] MEDS: ASPIRIN 81 MG ECTAB PO SCH (20:40)
[2020-08-14] MEDS: INSULIN GLARGINE SOLOSTAR 100 UNITS/ML 3 ML PEN SC SCH (20:40)
[2020-08-14] MEDS: CYANOCOBALAMIN 500 MCG TABLET (VITAMIN B-12) PO SCH (20:41)
[2020-08-14] MEDS: MULTIVITAMIN CHEWABLE TAB PO SCH (20:43)
[2020-08-14] MEDS: CHOLECALCIFEROL 1,000 UNITS 25 MCG TAB PO SCH (20:43)
[2020-08-14] MEDS: ATORVASTATIN 40 MG TAB PO SCH (20:44)
[2020-08-14] MEDS: TAMSULOSIN HCL 0.4 MG CAP PO SCH (20:44)
[2020-08-14] MEDS: LOSARTAN POTASSIUM 50 MG TAB PO SCH (20:47)
[2020-08-15] MEDS: oxyCODONE HCL IR 5 MG TAB (IMMEDIATE RELEASE) PO PRN ×2 (01:28→21:44)
[2020-08-15 06:03] LABS: Hematocrit (blood only) 38.9 % (42-52); Hemoglobin 13.2 g/dL (14.0-18.0); Mean Corpuscular Hemoglobin 30.4 pg (25-34); Mean Corpuscular Hgb Conc 33.9 g/dL (32-36); Mean Corpuscular Volume 89.6 fL (80-100); Mean Platelet Volume 10.5 fL (7.4-10.4); Platelet Count 254 K/uL (130-400); RDW Coefficient of Variation 14.3 % (11.5-14.5); Red Blood Count 4.34 M/uL (4.7-6.1); White Blood Count 9.99 K/uL (4.8-10.8)
[2020-08-15 06:06] LABS: INR 1.7 (0.9-1.1); Prothrombin Time 16.7 Seconds (9.0-12.0)
[2020-08-15 06:29] LABS: BUN Creatinine Ratio 19.3 (10-20); Creatinine Clr Calc Pharmacy 53.9 ml/min; Est GFR (African American) 47.3 ml/min; Est GFR (Non-African American) 40.8 ml/min; Potassium 4.1 mmol/L (3.5-5.1)
--- NOTE | 2020-08-15 08:14 | Orthopedic Progress Note ---
Date of Service August 15, 2020 Assessment & Plan (1) Osteomyelitis of toe: Postoperative day 3 status post right great toe amputation. PT/OT protocols. Weightbearing as tolerated on the heel only on the right foot. Discussed with patient if he was still having discomfort with his that he could be heel down for balance only. Continue daily dressing changes-the dressing was changed earlier this morning by nursing. No further surgery needed at this time. I discussed the case with Dr. Yung. All infected bone removed. Amputation site well above the infected area. Consider oral antibiotics for 10 to 14 days with this wound unless IV antibiotics deemed necessary by hospitalist service. Follow-up with Dr. Yung and or Dr. Weiss in 10 to 14 days. Admission and Anticipated Discharge Date Admission Date: August 11, 2020 Subjective Doing well. No pain in the right foot. He has no complaints. States nursing change the dressing earlier this morning around 5 AM. Physical Exam Constitutional: WD/WN, vitals as above no acute distress Musculoskeletal: Right foot: The great toe amputation flap is well approximated. All sutures in place. The flap is soft. No significant drainage. No erythema noted. Psychiatric: A+Ox3, euthymic affect Speech: normal rate/rhythm/volume of speech Results & Data ([facility]) Vital Signs (Past 12 Hours) Vital Signs Temp Pulse Resp BP BP Pulse Ox 08/15/20 07:58 36.7 C 62 22 119/73 95 08/14/20 22:13 37.6 C H 61 20 116/68 95 08/14/20 20:59 60 124/72
[2020-08-15] MEDS: cefTRIAXone SODIUM 2,000 MG in DEXTROSE 5% 50 ML IV SCH (08:43)
[2020-08-15] MEDS: DOCUSATE SODIUM 100 MG CAP PO SCH ×2 (08:44→20:05)
[2020-08-15] MEDS: FUROSEMIDE 40 MG TAB PO SCH (08:44)
[2020-08-15] MEDS: MAGNESIUM OXIDE 400 MG TAB PO SCH ×2 (08:45→20:06)
[2020-08-15] MEDS: TRIAMCINOLONE ACET 0.1% CR 15 GM TUBE TOP SCH ×2 (08:45→20:07)
[2020-08-15] MEDS: NYSTATIN POWDER 15GM BTL EXT SCH ×2 (08:46→20:05)
[2020-08-15] MEDS: INSULIN ASPART 100 UNITS/ML 3 ML PEN SC SCH ×4 (08:47→20:39)
[2020-08-15] MEDS: INSULIN GLARGINE SOLOSTAR 100 UNITS/ML 3 ML PEN SC SCH ×2 (08:48→20:39)
[2020-08-15] MEDS ORDERED: WARFARIN SOD 0.5 MG TAB PO SCH (16:00)
--- NOTE | 2020-08-15 17:14 | Hospitalist Progress Note ---
Date of Service August 15, 2020 Assessment & Plan (1) Necrotizing fasciitis: (2) Osteomyelitis of toe: (3) Ulcer of left great toe due to diabetes mellitus: (4) Cellulitis of right lower limb: (5) Leukocytosis: (6) Diabetic peripheral neuropathy associated with type 2 diabetes mellitus: (7) Venous insufficiency: (8) Peripheral arterial disease: (9) Hypertension: (10) Mixed sleep apnea: (11) CKD (chronic kidney disease), stage III: (12) Dyslipidemia: (13) Pacemaker: Right great toe osteomyelitis Necrotizing fasciitis S/P right great toe amputation POD #3 --Iggy CT:Soft tissue gas present within the tissues surrounding the proximal distal phalanges of the great toe. The findings are consistent with a necrotizing fasciitis. Intramedullary gas involving the distal phalanx of the great toe and distal aspect of the proximal phalanx the great toe. This is an ancillary finding reported in osteomyelitis, and therefore osteomyelitis is strongly suspected. Surgical consultation recommended. Appreciate orthopedics input Blood Cx:No growth to date Continue IV antibiotics for now Dapto, Rocephin) Plan to continue antibiotics for 10 to 14-day course as recommended by Ortho ID consult pending Need to follow-up with Dr. Weiss/ and 2 weeks upon discharge Continue daily dressing Prefers to be discharged to rehab facility We will request PT OT to reevaluate Case management to help with discharge planning UTI Urine Cx: E. coli Continue Rocephin DM II HbA1C:6.9 Hold Home regimen Continue Insulin therapy Monitor BGs Atrial fibrillation Rate control Continue Coumadin for anticoagulation Monitor INR: 1.7 H/O CVA Chronic right-sided numbness as per patient Continue aspirin, statin H/O CHF Chronic venous stasis insufficiency Continue home diuretics Monitor volume status CKD III Baseline creatinine 1.5-1.9 as per records Monitor renal function Avoid nephrotoxic agents as able DVT Px: Coumadin Code Status Full code Disposition To be determined Admission and Anticipated Discharge Date Admission Date: August 11, 2020 Subjective Patient is seen and examined at bedside States having balance issues with ambulation Foot pain at surgical site is controlled Had dressing change earlier today Prefers to be discharged to rehab Denies chest pain, shortness of breath, dizziness, nausea, abdominal pain Review of Systems Review of Systems: All systems reviewed & are unremarkable except as noted in HPI & below Physical Exam Physical Exam: Physical Exam: Vitals signs as noted above General Appearance:Moderately built and nourished, no apparent distress Head: normocephalic, Atraumatic Eyes: normal inspection, EOMI Neck: supple, Trachea midline Respiratory/Chest: Normal breath sounds, CTA Cardiovascular: S1, S2, No murmur Abdomen/GI:Soft, Non tender, Bowel sounds present Extremities/Musculoskeletal:normal inspection, B/L LE edema, Right Foot in dressing Neurologic/Psych:AAOX3, grossly no focal neurological deficits Skin: normal color, warm Results & Data Results & Data ([facility]) Vital Signs (Past 12 Hours) Vital Signs Temp Pulse Resp BP Pulse Ox 08/15/20 15:18 36.7 C 63 18 125/76 96 08/15/20 07:58 36.7 C 62 22 119/73 95 Laboratory Results Short CBC 08/15/20 Range/Units 05:40 WBC 9.99 (4.8-10.8) K/uL Hgb 13.2 L (14.0-18.0) g/dL Hct 38.9 L (42-52) % Plt Count 254 (130-400) K/uL BMP 08/15/20 05:40 Sodium 132 L Potassium 4.1 Chloride 105 Carbon Dioxide 21 BUN 33 H Creatinine 1.69 H Glucose 134 H Calcium 8.0 L
[2020-08-15] MEDS: ACETAMINOPHEN 325 MG TAB PO PRN (17:35)
[2020-08-15] MEDS: DAPTOmycin 550 MG in SYRINGE 0 ML IV SCH (18:21)
[2020-08-15] MEDS: ASPIRIN 81 MG ECTAB PO SCH (20:05)
[2020-08-15] MEDS: CHOLECALCIFEROL 1,000 UNITS 25 MCG TAB PO SCH (20:05)
[2020-08-15] MEDS: ATORVASTATIN 40 MG TAB PO SCH (20:05)
[2020-08-15] MEDS: TAMSULOSIN HCL 0.4 MG CAP PO SCH (20:06)
[2020-08-15] MEDS: CYANOCOBALAMIN 500 MCG TABLET (VITAMIN B-12) PO SCH (20:06)
[2020-08-15] MEDS: LOSARTAN POTASSIUM 50 MG TAB PO SCH (20:06)
[2020-08-15] MEDS: MULTIVITAMIN CHEWABLE TAB PO SCH (20:06)
[2020-08-16 05:57] LABS: INR 1.6 (0.9-1.1); Prothrombin Time 16.1 Seconds (9.0-12.0)
[2020-08-16 06:21] LABS: BUN Creatinine Ratio 18.7 (10-20); Calcium 8.6 mg/dl (8.5-10.1); Creatinine Clr Calc Pharmacy 61.5 ml/min; Est GFR (African American) 55.6 ml/min; Est GFR (Non-African American) 47.9 ml/min; Potassium 4.2 mmol/L (3.5-5.1)
[2020-08-16] MEDS: DOCUSATE SODIUM 100 MG CAP PO SCH ×2 (09:14→20:07)
[2020-08-16] MEDS: TRIAMCINOLONE ACET 0.1% CR 15 GM TUBE TOP SCH ×3 (09:16→20:08)
[2020-08-16] MEDS: NYSTATIN POWDER 15GM BTL EXT SCH ×2 (09:16→20:07)
[2020-08-16] MEDS: INSULIN GLARGINE SOLOSTAR 100 UNITS/ML 3 ML PEN SC SCH ×2 (09:17→20:38)
[2020-08-16] MEDS: MAGNESIUM OXIDE 400 MG TAB PO SCH ×2 (09:17→20:07)
[2020-08-16] MEDS: FUROSEMIDE 40 MG TAB PO SCH (09:18)
[2020-08-16] MEDS: INSULIN ASPART 100 UNITS/ML 3 ML PEN SC SCH ×4 (09:20→20:37)
[2020-08-16] MEDS: cefTRIAXone SODIUM 2,000 MG in DEXTROSE 5% 50 ML IV SCH (09:30)
[2020-08-16] MEDS: ACETAMINOPHEN 325 MG TAB PO PRN (16:00)
[2020-08-16] MEDS: WARFARIN SOD 5 MG TAB PO SCH (16:01)
[2020-08-16] MEDS: DOXYCYCLINE HYCLATE 100 MG CAP PO SCH (17:53)
[2020-08-16] MEDS: cephALEXin 500 MG CAP PO SCH ×2 (17:54→20:06)
--- NOTE | 2020-08-16 19:30 | Hospitalist Progress Note ---
Date of Service August 16, 2020 Assessment & Plan (1) Necrotizing fasciitis: (2) Osteomyelitis of toe: (3) Ulcer of left great toe due to diabetes mellitus: (4) Cellulitis of right lower limb: (5) Leukocytosis: (6) Diabetic peripheral neuropathy associated with type 2 diabetes mellitus: (7) Venous insufficiency: (8) Peripheral arterial disease: (9) Hypertension: (10) Mixed sleep apnea: (11) CKD (chronic kidney disease), stage III: (12) Dyslipidemia: (13) Pacemaker: Right great toe osteomyelitis Necrotizing fasciitis S/P right great toe amputation POD #4 --Iggy CT:Soft tissue gas present within the tissues surrounding the proximal distal phalanges of the great toe. The findings are consistent with a necrotizing fasciitis. Intramedullary gas involving the distal phalanx of the great toe and distal aspect of the proximal phalanx the great toe. This is an ancillary finding reported in osteomyelitis, and therefore osteomyelitis is strongly suspected. Surgical consultation recommended. Appreciate orthopedics input Blood Cx:No growth to date IV Dapto, Rocephin>>Transitioned to Doxy, Keflex Plan to continue antibiotics for 10 to 14-day course as recommended by Ortho ID consult pending Need to follow-up with Dr. Weiss/ and 2 weeks upon discharge Continue daily dressing Case management to help with discharge planning Needs SNF Placement UTI Urine Cx: E. coli Received Rocephin on Keflex as above DM II HbA1C:6.9 Hold Home regimen Continue Insulin therapy Monitor BGs Atrial fibrillation Rate control Continue Coumadin for anticoagulation Monitor INR: 1.6 Increase coumadin to 5mg today H/O CVA Chronic right-sided numbness as per patient Continue aspirin, statin H/O CHF Chronic venous stasis insufficiency Continue home diuretics Monitor volume status CKD III Baseline creatinine 1.5-1.9 as per records Monitor renal function Avoid nephrotoxic agents as able DVT Px: Coumadin Code Status Full code Disposition SNF when arranged Admission and Anticipated Discharge Date Admission Date: August 11, 2020 Subjective Patient is seen and examined at bedside States having nausea earlier today which resolved No other complaints Still has some Foot pain at surgical site Denies chest pain, shortness of breath, dizziness, nausea, abdominal pain Needs Rehab Placement Review of Systems Review of Systems: All systems reviewed & are unremarkable except as noted in HPI & below Physical Exam Physical Exam: Physical Exam: Vitals signs as noted above General Appearance:Moderately built and nourished, no apparent distress Head: normocephalic, Atraumatic Eyes: normal inspection, EOMI Neck: supple, Trachea midline Respiratory/Chest: Normal breath sounds, CTA Cardiovascular: S1, S2, No murmur Abdomen/GI:Soft, Non tender, Bowel sounds present Extremities/Musculoskeletal:normal inspection, B/L LE edema, Right Foot in dressing Neurologic/Psych:AAOX3, grossly no focal neurological deficits Skin: normal color, warm Results & Data Results & Data ([facility]) Vital Signs (Past 12 Hours) Vital Signs Temp Pulse Resp BP Pulse Ox 08/16/20 15:20 36.6 C 60 18 114/71 95 Laboratory Results BMP 08/16/20 05:33 Sodium 136 Potassium 4.2 Chloride 107 Carbon Dioxide 22 BUN 28 H Creatinine 1.48 H Glucose 103 H Calcium 8.6
[2020-08-16] MEDS: CHOLECALCIFEROL 1,000 UNITS 25 MCG TAB PO SCH (20:06)
[2020-08-16] MEDS: ASPIRIN 81 MG ECTAB PO SCH (20:06)
[2020-08-16] MEDS: CYANOCOBALAMIN 500 MCG TABLET (VITAMIN B-12) PO SCH (20:07)
[2020-08-16] MEDS: LOSARTAN POTASSIUM 50 MG TAB PO SCH (20:07)
[2020-08-16] MEDS: ATORVASTATIN 40 MG TAB PO SCH (20:07)
[2020-08-16] MEDS: TAMSULOSIN HCL 0.4 MG CAP PO SCH (20:07)
[2020-08-16] MEDS: MULTIVITAMIN CHEWABLE TAB PO SCH (20:07)
[2020-08-17] MEDS: DOXYCYCLINE HYCLATE 100 MG CAP PO SCH ×2 (06:11→17:37)
[2020-08-17 06:18] LABS: Hemoglobin 13.8 g/dL (14.0-18.0); Mean Corpuscular Hemoglobin 30.9 pg (25-34); Mean Corpuscular Hgb Conc 33.7 g/dL (32-36); Mean Corpuscular Volume 91.9 fL (80-100); Mean Platelet Volume 10.3 fL (7.4-10.4); Platelet Count 327 K/uL (130-400); RDW Coefficient of Variation 14.5 % (11.5-14.5); RDW Standard Deviation 49.2 fL (36.4-46.3); Red Blood Count 4.46 M/uL (4.7-6.1)
[2020-08-17 06:31] LABS: INR 1.7 (0.9-1.1); Prothrombin Time 16.7 Seconds (9.0-12.0)
[2020-08-17] MEDS: TRIAMCINOLONE ACET 0.1% CR 15 GM TUBE TOP SCH ×2 (08:08→19:45)
[2020-08-17] MEDS: DOCUSATE SODIUM 100 MG CAP PO SCH ×2 (08:10→19:44)
[2020-08-17] MEDS: MAGNESIUM OXIDE 400 MG TAB PO SCH ×2 (08:12→19:44)
[2020-08-17] MEDS: cephALEXin 500 MG CAP PO SCH ×4 (08:12→20:56)
[2020-08-17] MEDS: NYSTATIN POWDER 15GM BTL EXT SCH ×2 (08:12→19:45)
[2020-08-17] MEDS: ACETAMINOPHEN 325 MG TAB PO PRN (08:12)
[2020-08-17] MEDS: FUROSEMIDE 20 MG TAB PO SCH (08:12)
[2020-08-17] MEDS: INSULIN GLARGINE SOLOSTAR 100 UNITS/ML 3 ML PEN SC SCH ×2 (08:16→20:55)
[2020-08-17] MEDS: INSULIN ASPART 100 UNITS/ML 3 ML PEN SC SCH ×4 (08:17→20:55)
[2020-08-17] MEDS: WARFARIN SOD 5 MG TAB PO SCH (17:36)
--- NOTE | 2020-08-17 18:24 | Hospitalist Progress Note ---
Date of Service August 17, 2020 Assessment & Plan (1) Necrotizing fasciitis: (2) Osteomyelitis of toe: (3) Ulcer of left great toe due to diabetes mellitus: (4) Cellulitis of right lower limb: (5) Leukocytosis: (6) Diabetic peripheral neuropathy associated with type 2 diabetes mellitus: (7) Venous insufficiency: (8) Peripheral arterial disease: (9) Hypertension: (10) Mixed sleep apnea: (11) CKD (chronic kidney disease), stage III: (12) Dyslipidemia: (13) Pacemaker: Right great toe osteomyelitis Necrotizing fasciitis S/P right great toe amputation POD #5 --Iggy CT:Soft tissue gas present within the tissues surrounding the proximal distal phalanges of the great toe. The findings are consistent with a necrotizing fasciitis. Intramedullary gas involving the distal phalanx of the great toe and distal aspect of the proximal phalanx the great toe. This is an ancillary finding reported in osteomyelitis, and therefore osteomyelitis is strongly suspected. Surgical consultation recommended. Appreciate orthopedics input Blood Cx:No growth to date IV Dapto, Rocephin>>Transitioned to Doxy, Keflex Plan to continue antibiotics for 10 to 14-day course as recommended by Ortho ID consulted Need to follow-up with Dr. Weiss/ and 2 weeks upon discharge Continue daily dressing Case management to help with discharge planning Needs SNF Placement Waiting for rehab placement Continue current medications UTI Urine Cx: E. coli Received Rocephin on Keflex as above DM II HbA1C:6.9 Hold Home regimen Continue Insulin therapy Monitor BGs Atrial fibrillation Rate control Continue Coumadin for anticoagulation Monitor INR: 1.7 Continue Coumadin to 5mg today H/O CVA Chronic right-sided numbness as per patient Continue aspirin, statin H/O CHF Chronic venous stasis insufficiency Continue home diuretics Monitor volume status CKD III Baseline creatinine 1.5-1.9 as per records Monitor renal function Avoid nephrotoxic agents as able DVT Px: Coumadin Code Status Full code Disposition SNF when arranged Admission and Anticipated Discharge Date Admission Date: August 11, 2020 Subjective Patient is seen and examined at bedside States feeling well today Nausea resolved Waiting for placement Dressing changed none today Denies chest pain, shortness of breath, dizziness, nausea, abdominal pain Review of Systems Review of Systems: All systems reviewed & are unremarkable except as noted in HPI & below Physical Exam Physical Exam: Physical Exam: Vitals signs as noted above General Appearance:Moderately built and nourished, no apparent distress Head: normocephalic, Atraumatic Eyes: normal inspection, EOMI Neck: supple, Trachea midline Respiratory/Chest: Normal breath sounds, CTA Cardiovascular: S1, S2, No murmur Abdomen/GI:Soft, Non tender, Bowel sounds present Extremities/Musculoskeletal:normal inspection, B/L LE edema, Right Foot in dressing Neurologic/Psych:AAOX3, grossly no focal neurological deficits Skin: normal color, warm Results & Data Results & [facility] ([facility]) Vital Signs (Past 12 Hours) Vital Signs Temp Pulse Resp BP Pulse Ox 08/17/20 15:40 36.6 C 61 18 128/75 96 08/17/20 07:34 36.5 C 60 18 131/77 97 Laboratory Results Short CBC 08/17/20 Range/Units 05:24 WBC 7.10 (4.8-10.8) K/uL Hgb 13.8 L (14.0-18.0) g/dL Hct 41.0 L (42-52) % Plt Count 327 (130-400) K/uL
[2020-08-17] MEDS: ATORVASTATIN 40 MG TAB PO SCH (19:42)
[2020-08-17] MEDS: ASPIRIN 81 MG ECTAB PO SCH (19:42)
[2020-08-17] MEDS: CYANOCOBALAMIN 500 MCG TABLET (VITAMIN B-12) PO SCH (19:43)
[2020-08-17] MEDS: CHOLECALCIFEROL 1,000 UNITS 25 MCG TAB PO SCH (19:43)
[2020-08-17] MEDS: TAMSULOSIN HCL 0.4 MG CAP PO SCH (19:45)
[2020-08-17] MEDS: MULTIVITAMIN CHEWABLE TAB PO SCH (19:45)
[2020-08-17] MEDS: LOSARTAN POTASSIUM 50 MG TAB PO SCH (21:00)
[2020-08-18] MEDS: DOXYCYCLINE HYCLATE 100 MG CAP PO SCH ×2 (05:38→17:39)
[2020-08-18 06:47] LABS: INR 1.9 (0.9-1.1)
[2020-08-18] MEDS: DOCUSATE SODIUM 100 MG CAP PO SCH ×2 (08:23→20:59)
[2020-08-18] MEDS: TRIAMCINOLONE ACET 0.1% CR 15 GM TUBE TOP SCH ×2 (08:24→21:00)
[2020-08-18] MEDS: MAGNESIUM OXIDE 400 MG TAB PO SCH ×2 (08:24→21:55)
[2020-08-18] MEDS: FUROSEMIDE 40 MG TAB PO SCH (08:24)
[2020-08-18] MEDS: cephALEXin 500 MG CAP PO SCH ×4 (08:24→20:58)
[2020-08-18] MEDS: INSULIN ASPART 100 UNITS/ML 3 ML PEN SC SCH ×4 (09:07→21:02)
[2020-08-18] MEDS: INSULIN GLARGINE SOLOSTAR 100 UNITS/ML 3 ML PEN SC SCH ×2 (09:07→21:03)
[2020-08-18] MEDS: NYSTATIN POWDER 15GM BTL EXT SCH ×2 (09:07→21:00)
--- NOTE | 2020-08-18 14:57 | Hospitalist Progress Note ---
Date of Service August 18, 2020 Assessment & Plan (1) Necrotizing fasciitis: (2) Osteomyelitis of toe: (3) Ulcer of left great toe due to diabetes mellitus: (4) Cellulitis of right lower limb: (5) Leukocytosis: (6) Diabetic peripheral neuropathy associated with type 2 diabetes mellitus: (7) Venous insufficiency: (8) Peripheral arterial disease: (9) Hypertension: (10) Mixed sleep apnea: (11) CKD (chronic kidney disease), stage III: (12) Dyslipidemia: (13) Pacemaker: Right great toe osteomyelitis Necrotizing fasciitis S/P right great toe amputation POD #6 --Iggy CT:Soft tissue gas present within the tissues surrounding the proximal distal phalanges of the great toe. The findings are consistent with a necrotizing fasciitis. Intramedullary gas involving the distal phalanx of the great toe and distal aspect of the proximal phalanx the great toe. This is an ancillary finding reported in osteomyelitis, and therefore osteomyelitis is strongly suspected. Surgical consultation recommended. Appreciate orthopedics input Blood Cx:No growth to date IV Dapto, Rocephin>>Transitioned to Doxy, Keflex Plan to continue antibiotics for 10 to 14-day course as recommended by Ortho ID consulted Need to follow-up with Dr. Weiss/ upon discharge Continue daily dressing Case management to help with discharge planning Needs SNF Placement when appropriate Needs debridement given demarcation of wound Planned for debridement on Monday Orthopedics following Obtain AKOSUA to assess circulation UTI Urine Cx: E. coli Received Rocephin on Keflex as above DM II HbA1C:6.9 Hold Home regimen Continue Insulin therapy Monitor BGs Atrial fibrillation Rate control Continue Coumadin for anticoagulation Monitor INR: 1.9 Hold Coumadin today given plan for debridement on Monday IV heparin for now H/O CVA Chronic right-sided numbness as per patient Continue aspirin, statin H/O CHF Chronic venous stasis insufficiency Continue home diuretics Monitor volume status CKD III Baseline creatinine 1.5-1.9 as per records Monitor renal function Avoid nephrotoxic agents as able DVT Px: Coumadin-held IV Heparin Code Status Full code Disposition SNF when appropriate Admission and Anticipated Discharge Date Admission Date: August 11, 2020 Subjective Patient is seen and examined at bedside States feeling well No new complaints Discussed with Orthopedics today Denies any foot pain Needs debridement given demarcation of wound Denies chest pain, shortness of breath, dizziness, nausea, abdominal pain Review of Systems Review of Systems: All systems reviewed & are unremarkable except as noted in HPI & below Physical Exam Physical Exam: Physical Exam: Vitals signs as noted above General Appearance:Moderately built and nourished, no apparent distress Head: normocephalic, Atraumatic Eyes: normal inspection, EOMI Neck: supple, Trachea midline Respiratory/Chest: Normal breath sounds, CTA Cardiovascular: S1, S2, No murmur Abdomen/GI:Soft, Non tender, Bowel sounds present Extremities/Musculoskeletal:normal inspection, B/L LE edema, Right Foot in dressing Neurologic/Psych:AAOX3, grossly no focal neurological deficits Skin: normal color, warm Results & Data Results & Data ([facility]) Vital Signs (Past 12 Hours) Vital Signs Temp Pulse Resp BP Pulse Ox 08/18/20 08:00 36.5 C 84 16 119/69 96
--- NOTE | 2020-08-18 14:58 | Ultrasound Report ---
US ankle/brachial index comp HISTORY: Peripheral arterial disease PAD TECHNIQUE: Ankle-brachial indices. FINDINGS: BRACHIAL: Right: 123 mmHg. Left: 136 mmHg. ANKLE (POSTERIOR TIBIAL): Noncompressible bilaterally ANKLE (DORSALIS PEDIS): Noncompressible bilaterally IMPRESSION: Noncompressible peripheral arteries. Therefore AKOSUA's cannot be calculated.. ACT 112: Negative or not required by law. The above report was generated using voice recognition software. It may contain grammatical, syntax o r spelling errors. Electronically signed by: Monroe Lloyd M.D. 08/18/2020 2:57 PM
[2020-08-18] MEDS ORDERED: Heparin IV Adult Wt-Based Low-Dose *NO* Bolus Protocol IV SCH (15:00)
[2020-08-18 15:45] LABS: Basophils # (auto) 0.02 K/uL (0-0.2); Basophils % (auto) 0.3 %; Eosinophils # (auto) 0.13 K/uL (0-0.5); Eosinophils % (auto) 2.1 %; Hematocrit (blood only) 42.4 % (42-52); Hemoglobin 14.5 g/dL (14.0-18.0); Immature Granulocytes # (auto) 0.03 K/uL (0.00-0.02); Immature Granulocytes % (auto) 0.5 %; Lymphocytes # (auto) 0.67 K/uL (1.2-3.4); Lymphocytes % (auto) 10.6 %; Mean Corpuscular Hemoglobin 31.1 pg (25-34); Mean Platelet Volume 10.1 fL (7.4-10.4); Monocytes # (auto) 0.51 K/uL (0.11-0.59); Neutrophils # (auto) 4.98 K/uL (1.4-6.5); Neutrophils % (auto) 78.5 %; Platelet Count 337 K/uL (130-400); RDW Coefficient of Variation 14.6 % (11.5-14.5); RDW Standard Deviation 48.8 fL (36.4-46.3); Red Blood Count 4.66 M/uL (4.7-6.1); White Blood Count 6.34 K/uL (4.8-10.8)
[2020-08-18 15:54] LABS: Partial Thromboplastin Ratio 1.2; Partial Thromboplastin Time 32.7 Seconds (21.0-31.0); Prothrombin Time 19.2 Seconds (9.0-12.0)
[2020-08-18] MEDS: HEPARIN SODIUM/DEXTROSE 25,000 UNITS/500 ML BAG IV SCH (16:03)
[2020-08-18 16:21] LABS: Mean Corpuscular Hgb Conc 34.2 g/dL (32-36)
[2020-08-18] MEDS: ASPIRIN 81 MG ECTAB PO SCH (20:57)
[2020-08-18] MEDS: ATORVASTATIN 40 MG TAB PO SCH (20:57)
[2020-08-18] MEDS: CHOLECALCIFEROL 1,000 UNITS 25 MCG TAB PO SCH (20:58)
[2020-08-18] MEDS: LOSARTAN POTASSIUM 50 MG TAB PO SCH (20:59)
[2020-08-18] MEDS: CYANOCOBALAMIN 500 MCG TABLET (VITAMIN B-12) PO SCH (20:59)
[2020-08-18] MEDS: MULTIVITAMIN CHEWABLE TAB PO SCH (21:00)
[2020-08-18] MEDS: TAMSULOSIN HCL 0.4 MG CAP PO SCH (21:01)
[2020-08-18] MEDS ORDERED: HEPARIN SOD 5,000 UNIT/0.5 ML VIAL SQ SCH (22:00)
[2020-08-18 23:44] LABS: Partial Thromboplastin Ratio 1.5; Partial Thromboplastin Time 38.4 Seconds (21.0-31.0)
[2020-08-19] MEDS: DOXYCYCLINE HYCLATE 100 MG CAP PO SCH ×2 (06:47→18:25)
[2020-08-19 07:21] LABS: Hematocrit (blood only) 41.5 % (42-52); Mean Corpuscular Hemoglobin 30.6 pg (25-34); Mean Corpuscular Hgb Conc 33.7 g/dL (32-36); Mean Corpuscular Volume 90.8 fL (80-100); Mean Platelet Volume 9.7 fL (7.4-10.4); Platelet Count 343 K/uL (130-400); RDW Coefficient of Variation 14.5 % (11.5-14.5); RDW Standard Deviation 48.4 fL (36.4-46.3); Red Blood Count 4.57 M/uL (4.7-6.1); White Blood Count 5.12 K/uL (4.8-10.8)
[2020-08-19 07:30] LABS: INR 1.9 (0.9-1.1); Partial Thromboplastin Ratio 1.6; Partial Thromboplastin Time 42.1 Seconds (21.0-31.0); Prothrombin Time 18.5 Seconds (9.0-12.0)
[2020-08-19 07:50] LABS: BUN Creatinine Ratio 15.8 (10-20); Calcium 8.5 mg/dl (8.5-10.1); Creatinine Clr Calc Pharmacy 77.1 ml/min; Est GFR (African American) 73.1 ml/min; Potassium 4.1 mmol/L (3.5-5.1)
--- NOTE | 2020-08-19 08:17 | Hospitalist Progress Note ---
Date of Service August 19, 2020 Assessment & Plan (1) Necrotizing fasciitis: (2) Osteomyelitis of toe: (3) Ulcer of left great toe due to diabetes mellitus: (4) Cellulitis of right lower limb: (5) Leukocytosis: (6) Diabetic peripheral neuropathy associated with type 2 diabetes mellitus: (7) Venous insufficiency: (8) Peripheral arterial disease: (9) Hypertension: (10) Mixed sleep apnea: (11) CKD (chronic kidney disease), stage III: (12) Dyslipidemia: (13) Pacemaker: Right great toe osteomyelitis Necrotizing fasciitis S/P right great toe amputation POD #7 --Iggy CT:Soft tissue gas present within the tissues surrounding the proximal distal phalanges of the great toe. The findings are consistent with a necrotizing fasciitis. Intramedullary gas involving the distal phalanx of the great toe and distal aspect of the proximal phalanx the great toe. This is an ancillary finding reported in osteomyelitis, and therefore osteomyelitis is strongly suspected. Surgical consultation recommended. Appreciate orthopedics input Blood Cx:No growth to date IV Dapto, Rocephin>>Transitioned to Doxy, Keflex Plan to continue antibiotics for 10 to 14-day course as recommended by Ortho ID consulted Need to follow-up with Dr. Weiss/ upon discharge Continue daily dressing Case management to help with discharge planning Needs SNF Placement when appropriate Needs debridement given demarcation of wound Planned for debridement on Monday Orthopedics following Obtain AKOSUA to assess circulation - Noncompressible peripheral arteries. Therefore AKOSUA's cannot be calculated. UTI Urine Cx: E. coli Received Rocephin on Keflex as above DM II HbA1C:6.9 Hold Home regimen Continue Insulin therapy Monitor BGs Atrial fibrillation Rate control Continue Coumadin for anticoagulation Monitor INR: 1.9 Hold Coumadin given plan for debridement on Monday IV heparin for now H/O CVA Chronic right-sided numbness as per patient Continue aspirin, statin H/O CHF Chronic venous stasis insufficiency Continue home diuretics Monitor volume status CKD III Baseline creatinine 1.5-1.9 as per records Monitor renal function Avoid nephrotoxic agents as able DVT Px: Coumadin-held IV Heparin Code Status Full code Disposition SNF when appropriate Admission and Anticipated Discharge Date Admission Date: August 11, 2020 Subjective Patient is seen in follow-up of progressing fasciitis, osteomyelitis States feeling well Sitting up in bed, eating breakfast, in no acute distress Denies any foot pain (history of neuropathy) Needs debridement given demarcation of wound -plan for Monday, with orthopedics Denies fever, chills, chest pain, shortness of breath, dizziness, nausea, abdominal pain Review of Systems Review of Systems: All systems reviewed & are unremarkable except as noted in HPI & below Constitutional: no fever and no chills Respiratory: no cough and no dyspnea Cardiovascular: no chest pain and no palpitations Gastrointestinal: no abdominal pain, no nausea and no vomiting Physical Exam Physical Exam: General Appearance: Moderately built and nourished, no apparent distress Head: normocephalic, Atraumatic Eyes: normal inspection, EOMI Neck: supple, Trachea midline Respiratory/Chest: Normal breath sounds, CTA Cardiovascular: S1, S2, No murmur Abdomen/GI:Soft, Non tender, Bowel sounds present Extremities/Musculoskeletal:normal inspection, B/L LE edema, Right Foot in dressing Neurologic/Psych:AAOX3, grossly no focal neurological deficits Skin: normal color, warm Results & Data Results & Data ([facility]) Vital Signs (Past 12 Hours) Vital Signs Temp Pulse Pulse Resp BP Pulse Ox 08/19/20 07:20 36.5 C 60 16 126/77 96 08/18/20 22:48 36.5 C 61 18 119/77 97 Laboratory Results 08/19/20 08/19/20 08/19/20 Range/Units 06:59 06:59 06:59 WBC 5.12 (4.8-10.8) K/uL RBC 4.57 L (4.7-6.1) M/uL Hgb 14.0 (14.0-18.0) g/dL Hct 41.5 L (42-52) % MCV 90.8 (80-100) fL MCH 30.6 (25-34) pg MCHC 33.7 (32-36) g/dL RDW Std Deviation 48.4 H (36.4-46.3) fL RDW Coeff of Jason 14.5 (11.5-14.5) % Plt Count 343 (130-400) K/uL MPV 9.7 (7.4-10.4) fL Immature Gran % (Auto) % Neut % (Auto) % Lymph % (Auto) % Fountain % (Auto) % Eos % (Auto) % Baso % (Auto) % Neut # (Auto) (1.4-6.5) K/uL Lymph # (Auto) (1.2-3.4) K/uL Fountain # (Auto) (0.11-0.59) K/uL Eos # (Auto) (0-0.5) K/uL Baso # (Auto) (0-0.2) K/uL Immature Gran # (Auto) (0.00-0.02) K/uL PT 18.5 H (9.0-12.0) Seconds INR 1.9 H (0.9-1.1) APTT 42.1 H (21.0-31.0) Seconds PTT Ratio 1.6 Sodium 141 (136-145) mmol/L Potassium 4.1 (3.5-5.1) mmol/L Chloride 109 H (98-107) mmol/L Carbon Dioxide 27 (21-32) mmol/L Anion Gap 5.0 (3-11) BUN 19 H (7-18) mg/dl Creatinine 1.18 (0.6-1.4) mg/dl Est Cr Clr Drug Dosing 77.1 ml/min Est GFR ( Amer) 73.1 ml/min Est GFR (Non-Af Amer) 63.0 ml/min BUN/Creatinine Ratio 15.8 (10-20) Glucose 106 H (70-99) mg/dl POC Glucose (70-99) mg/dl Calcium 8.5 (8.5-10.1) mg/dl 08/18/20 08/18/20 08/18/20 Range/Units 23:20 20:30 17:11 WBC (4.8-10.8) K/uL RBC (4.7-6.1) M/uL Hgb (14.0-18.0) g/dL Hct (42-52) % MCV (80-100) fL MCH (25-34) pg MCHC (32-36) g/dL RDW Std Deviation (36.4-46.3) fL RDW Coeff of Jason (11.5-14.5) % Plt Count (130-400) K/uL MPV (7.4-10.4) fL Immature Gran % (Auto) % Neut % (Auto) % Lymph % (Auto) % Fountain % (Auto) % Eos % (Auto) % Baso % (Auto) % Neut # (Auto) (1.4-6.5) K/uL Lymph # (Auto) (1.2-3.4) K/uL Fountain # (Auto) (0.11-0.59) K/uL Eos # (Auto) (0-0.5) K/uL Baso # (Auto) (0-0.2) K/uL Immature Gran # (Auto) (0.00-0.02) K/uL PT (9.0-12.0) Seconds INR (0.9-1.1) APTT 38.4 H (21.0-31.0) Seconds PTT Ratio 1.5 Sodium (136-145) mmol/L Potassium (3.5-5.1) mmol/L Chloride (98-107) mmol/L Carbon Dioxide (21-32) mmol/L Anion Gap (3-11) BUN (7-18) mg/dl Creatinine (0.6-1.4) mg/dl Est Cr Clr Drug Dosing ml/min Est GFR ( Amer) ml/min Est GFR (Non-Af Amer) ml/min BUN/Creatinine Ratio (10-20) Glucose (70-99) mg/dl POC Glucose 174 H 120 H (70-99) mg/dl Calcium (8.5-10.1) mg/dl 08/18/20 08/18/20 08/18/20 Range/Units 15:36 15:36 12:04 WBC 6.34 (4.8-10.8) K/uL RBC 4.66 L (4.7-6.1) M/uL Hgb 14.5 (14.0-18.0) g/dL Hct 42.4 (42-52) % MCV 91.0 (80-100) fL MCH 31.1 (25-34) pg MCHC 34.2 (32-36) g/dL RDW Std Deviation 48.8 H (36.4-46.3) fL RDW Coeff of Jason 14.6 H (11.5-14.5) % Plt Count 337 (130-400) K/uL MPV 10.1 (7.4-10.4) fL Immature Gran % (Auto) 0.5 % Neut % (Auto) 78.5 % Lymph % (Auto) 10.6 % Fountain % (Auto) 8.0 % Eos % (Auto) 2.1 % Baso % (Auto) 0.3 % Neut # (Auto) 4.98 (1.4-6.5) K/uL Lymph # (Auto) 0.67 L (1.2-3.4) K/uL Fountain # (Auto) 0.51 (0.11-0.59) K/uL Eos # (Auto) 0.13 (0-0.5) K/uL Baso # (Auto) 0.02 (0-0.2) K/uL Immature Gran # (Auto) 0.03 H (0.00-0.02) K/uL PT 19.2 H (9.0-12.0) Seconds INR 2.0 H (0.9-1.1) APTT 32.7 H (21.0-31.0) Seconds PTT Ratio 1.2 Sodium (136-145) mmol/L Potassium (3.5-5.1) mmol/L Chloride (98-107) mmol/L Carbon Dioxide (21-32) mmol/L Anion Gap (3-11) BUN (7-18) mg/dl Creatinine (0.6-1.4) mg/dl Est Cr Clr Drug Dosing ml/min Est GFR ( Amer) ml/min Est GFR (Non-Af Amer) ml/min BUN/Creatinine Ratio (10-20) Glucose (70-99) mg/dl POC Glucose 130 H (70-99) mg/dl Calcium (8.5-10.1) mg/dl 08/18/20 Range/Units 12:04 WBC (4.8-10.8) K/uL RBC (4.7-6.1) M/uL Hgb (14.0-18.0) g/dL Hct (42-52) % MCV (80-100) fL MCH (25-34) pg MCHC (32-36) g/dL RDW Std Deviation (36.4-46.3) fL RDW Coeff of Jason (11.5-14.5) % Plt Count (130-400) K/uL MPV (7.4-10.4) fL Immature Gran % (Auto) % Neut % (Auto) % Lymph % (Auto) % Fountain % (Auto) % Eos % (Auto) % Baso % (Auto) % Neut # (Auto) (1.4-6.5) K/uL Lymph # (Auto) (1.2-3.4) K/uL Fountain # (Auto) (0.11-0.59) K/uL Eos # (Auto) (0-0.5) K/uL Baso # (Auto) (0-0.2) K/uL Immature Gran # (Auto) (0.00-0.02) K/uL PT (9.0-12.0) Seconds INR (0.9-1.1) APTT (21.0-31.0) Seconds PTT Ratio Sodium (136-145) mmol/L Potassium (3.5-5.1) mmol/L Chloride (98-107) mmol/L Carbon Dioxide (21-32) mmol/L Anion Gap (3-11) BUN (7-18) mg/dl Creatinine (0.6-1.4) mg/dl Est Cr Clr Drug Dosing ml/min Est GFR ( Amer) ml/min Est GFR (Non-Af Amer) ml/min BUN/Creatinine Ratio (10-20) Glucose (70-99) mg/dl POC Glucose 130 H (70-99) mg/dl Calcium (8.5-10.1) mg/dl Medications Administered Current Inpatient Medications Acetaminophen (Acetaminophen 325 Mg Tab) 650 mg PO Q4H PRN PRN Reason: pain/fever Stop: 09/10/20 20:17 Last Admin: 08/17/20 08:12 Dose: 650 mg Documented by: Aspirin (Aspirin 81 Mg Ectab) 81 mg PO QPM [facility] Stop: 09/10/20 20:59 Last Admin: 08/18/20 20:57 Dose: 81 mg Documented by: Atorvastatin Calcium (Atorvastatin 40 Mg Tab) 40 mg PO PM [facility] Stop: 09/10/20 20:59 Last Admin: 08/18/20 20:57 Dose: 40 mg Documented by: Betamethasone Dipropion Augmented (Betamethasone Dip Aug 0.05% Oint 15 Gm Tube) 1 appln EXT DAILY PRN PRN Reason: Dry Skin Stop: 09/10/20 20:17 Cephalexin HCl (Cephalexin 500 Mg Cap) 500 mg PO QID [facility]; Protocol Stop: 08/25/20 16:59 Last Admin: 08/18/20 20:58 Dose: 500 mg Documented by: Cyanocobalamin (Cyanocobalamin 500 Mcg Tablet (Vitamin B-12)) 1,000 mcg PO PM [facility] Stop: 09/10/20 20:59 Last Admin: 08/18/20 20:59 Dose: 1,000 mcg Documented by: Dextrose (Dextrose 50% 50 Ml Syringe) 25 - 50 ml IV UD PRN; Protocol PRN Reason: Hypoglycemia Protocol Stop: 09/10/20 21:44 Docusate Sodium (Docusate Sodium 100 Mg Cap) 100 mg PO BID [facility] Stop: 09/11/20 20:59 Last Admin: 08/18/20 20:59 Dose: Not Given Documented by: Doxycycline Hyclate (Doxycycline Hyclate 100 Mg Cap) 100 mg PO Q12H [facility]; Protocol Stop: 08/25/20 17:59 Last Admin: 08/19/20 06:47 Dose: 100 mg Documented by: Furosemide (Furosemide 20 Mg Tab) 20 mg PO MoWeFr@0900 [facility] Stop: 09/11/20 08:59 Last Admin: 08/17/20 08:12 Dose: 20 mg Documented by: Furosemide (Furosemide 40 Mg Tab) 40 mg PO SuTuThSa@0900 [facility] Stop: 09/12/20 08:59 Last Admin: 08/18/20 08:24 Dose: 40 mg Documented by: Glucagon (Glucagon For Inj 1 Mg Vial) 1 mg IM UD PRN; Protocol PRN Reason: Hypoglycemia Protocol Stop: 09/10/20 21:44 Glucose (Glucose 40% Gel 15 Gm Tube) 15 - 30 gm PO UD PRN; Protocol PRN Reason: Hypoglycemia Protocol Stop: 09/10/20 21:44 Glucose (Glucose 10 Tabs/Tube) 4 - 8 tabs PO UD PRN; Protocol PRN Reason: Hypoglycemia Protocol Stop: 09/10/20 21:44 Hydromorphone HCl (Hydromorphone Inj 0.5 Mg/0.5 Ml Syr) 0.5 mg IV Q4H PRN PRN Reason: Pain or Pre PT Stop: 08/26/20 16:29 Heparin Sodium/Dextrose (Heparin Sodium/Dextrose) 25,000 units in 500 mls @ 22 mls/hr IV .[id number] [facility]; Protocol Stop: 09/17/20 15:29 Last Titration: 08/19/20 08:04 Dose: 1,200 units/hr, 24 mls/hr Documented by: Insulin Aspart (Insulin Aspart 100 Units/Ml 3 Ml Pen) 0 units SC ACHS [facility] Stop: 09/11/20 05:59 Last Admin: 08/18/20 21:02 Dose: 2 units Documented by: Insulin Glargine (Insulin Glargine Solostar 100 Units/Ml 3 Ml Pen) 5 units SC BID [facility] Stop: 09/13/20 20:59 Last Admin: 08/18/20 21:03 Dose: 5 units Documented by: Losartan Potassium (Losartan Potassium 50 Mg Tab) 50 mg PO HS [facility] Stop: 09/10/20 20:59 Last Admin: 08/18/20 20:59 Dose: 50 mg Documented by: Magnesium Oxide (Magnesium Oxide 400 Mg Tab) 400 mg PO BID [facility] Stop: 09/10/20 20:59 Last Admin: 08/18/20 21:55 Dose: 400 mg Documented by: Miscellaneous (Jardiance~Order Awaiting Action) 1 ea N/A QS [facility] Stop: 09/10/20 21:44 Last Admin: 08/18/20 23:55 Dose: Not Given Documented by: Miscellaneous (Carbohydrates For Hypoglycemia ) 15 - 30 gm PO UD PRN PRN Reason: Hypoglycemia Treatment Stop: 09/10/20 21:44 Multivitamins/Folic Acid/Vitamin C (Multivitamin Chewable Tab) 1 tab PO PM [facility] Stop: 09/10/20 20:59 Last Admin: 08/18/20 21:00 Dose: 1 tab Documented by: Naloxone HCl (Naloxone Hcl 0.4 Mg/1 Ml Vial/Carp) 0.1 mg IV Q5M PRN PRN Reason: Oversedation/Resp Depression Stop: 09/11/20 16:29 Nystatin (Nystatin Powder 15gm Btl) 1 appln EXT BID [facility] Stop: 09/11/20 20:59 Last Admin: 08/18/20 21:00 Dose: Not Given Documented by: Ondansetron HCl (Ondansetron Inj 2 Mg/Ml 2 Ml Vial) 4 mg IV Q6H PRN PRN Reason: Nausea Stop: 09/10/20 20:17 Last Admin: 08/16/20 13:11 Dose: 4 mg Documented by: Oxycodone HCl (Oxycodone Hcl Ir 5 Mg Tab (Immediate Release)) 5 - 10 mg PO Q4H PRN PRN Reason: Pain or Pre PT Stop: 08/26/20 16:29 Last Admin: 08/15/20 21:44 Dose: 5 mg Documented by: Polyethylene Glycol (Polyethylene (Miralax) 17 Gm Pack) 17 gm PO DAILY PRN PRN Reason: Constipation Stop: 09/10/20 20:17 Tamsulosin HCl (Tamsulosin Hcl 0.4 Mg Cap) 0.4 mg PO PM [facility] Stop: 09/10/20 20:59 Last Admin: 08/18/20 21:01 Dose: 0.4 mg Documented by: Triamcinolone Acetonide (Triamcinolone Acet 0.1% Cr 15 Gm Tube) 1 appln TOP BID [facility] Stop: 09/10/20 20:59 Last Admin: 08/18/20 21:00 Dose: Not Given Documented by: Vitamin D (Cholecalciferol 1,000 Units 25 Mcg Tab) 2,000 units PO PM [facility] Stop: 09/10/20 20:59 Last Admin: 08/18/20 20:58 Dose: 2,000 units Documented by: Warfarin Sodium (Warfarin Sod 0.5 Mg Tab) 1.5 mg PO SuTuThSa@1600 [facility] Stop: 09/14/20 15:59 Last Admin: 08/15/20 17:31 Dose: 1.5 mg Documented by: Warfarin Sodium (Warfarin Sod 3 Mg Tab) 3 mg PO [email or web address]@1600 [facility] Stop: 09/13/20 15:59 Last Admin: 08/14/20 17:06 Dose: 3 mg Documented by:
[2020-08-19] MEDS: cephALEXin 500 MG CAP PO SCH ×4 (08:42→20:31)
[2020-08-19] MEDS: DOCUSATE SODIUM 100 MG CAP PO SCH ×2 (08:43→20:32)
[2020-08-19] MEDS: MAGNESIUM OXIDE 400 MG TAB PO SCH ×2 (08:44→20:32)
[2020-08-19] MEDS: FUROSEMIDE 20 MG TAB PO SCH (08:44)
[2020-08-19] MEDS: NYSTATIN POWDER 15GM BTL EXT SCH ×2 (08:45→20:34)
[2020-08-19] MEDS: TRIAMCINOLONE ACET 0.1% CR 15 GM TUBE TOP SCH ×2 (08:45→20:34)
[2020-08-19] MEDS: INSULIN GLARGINE SOLOSTAR 100 UNITS/ML 3 ML PEN SC SCH ×2 (08:45→20:46)
[2020-08-19] MEDS: INSULIN ASPART 100 UNITS/ML 3 ML PEN SC SCH ×4 (08:46→20:46)
[2020-08-19] MEDS: HEPARIN SODIUM/DEXTROSE 25,000 UNITS/500 ML BAG IV SCH ×2 (13:52→16:19)
[2020-08-19 15:06] LABS: Partial Thromboplastin Ratio 1.6; Partial Thromboplastin Time 41.9 Seconds (21.0-31.0)
--- NOTE | 2020-08-19 16:24 | Vascular Medicine Consultation ---
Date of Consultation August 19, 2020 Assessment & Plan (1) Peripheral arterial disease: 2. RT great toe osteomyelitis post amputation 3. Chronic venous insufficiency 4. Type 2 diabetes 5. Dyslipidemia 6. Atrial fibrillation on Coumadin Reviewed prior arterial duplex obtained 09/2019. No evidence of significant occlusive disease on the right at that time. Remaining toes on the right appear well-perfused today. Suspicion for significant arterial insufficiency impacting wound healing is relatively low but will repeat right lower extremity arterial duplex to confirm. Assuming arterial duplex unremarkable can follow-up as an outpatient with repeat TBI's. Thank you for allowing us to participate in the care of this patient. Please contact with any questions. History of Present Illness Attending Physician: Franco Wayne MD History of Present Illness Mr. Cooley is a very pleasant 70 year old male with left lower extremity, chronic venous insufficiency seen today as an inpatient after admitted with necrotic right great toe with osteomyelitis now post amputation on 08/12/2020. Medical history significant for atrial fibrillation, pacemaker, history of CVA, type 2 diabetes, hypertension, dyslipidemia, peripheral neuropathy and CHF. Patient followed by me since at least April 2019 due to left lower extremity digit ulcerations. Underwent angioplasty to 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, EVELINE TPT/proximal DOUGH MOLDER 10/2019. Had digit healing. Later underwent bilateral GSV adhesive closure and right GSV remnant sclerotherapy, last 04/2020. Right great toe ulceration/cellulitis occurred rapidly per patient. Report suggested maggots associated with wound initially. Wound culture with MSSA. On p.o. antibiotics.Procedure uncomplicated. Is tentatively scheduled to undergo additional debridement on Monday. Had ABIs yesterday which were noncompressible. Social history: Retired. Lives in [facility] alone. His daughter and grandson in the same apartment complex. No tobacco, alcohol or drug use. Allergies Allergy/AdvReac Type Severity Reaction Status Date / Time No Known Allergies Allergy Verified 08/11/20 18:49 Home Medications Medication Instructions Recorded Confirmed Type Flnirtones Complete (iron) 1 tab PO PM #0 04/11/13 08/11/20 History atorvastatin 40 mg PO PM #0 tab 01/08/17 08/11/20 History warfarin 3 mg MOWEFR #0 tab 01/08/17 08/11/20 History cholecalciferol (vitamin D3) 2,000 unit PO PM 10/18/17 08/11/20 History [Vitamin D3] cyanocobalamin (vitamin B-12) 1,000 mcg PO PM 05/06/19 08/11/20 History furosemide 20 mg PO MOWEFR 05/06/19 08/11/20 History furosemide 40 mg PO SUTUTHSA 05/06/19 08/11/20 History tamsulosin 0.4 mg PO PM 05/06/19 08/11/20 History magnesium oxide 400 mg PO BID 09/26/19 08/11/20 History Jardiance 10 mg PO DAILY 11/04/19 08/11/20 History betamethasone dipropionate 1 applic TOPICAL DAILY PRN 11/04/19 08/11/20 History warfarin 1.5 mg PO SUTUTHSA 11/04/19 08/11/20 History aspirin 81 mg PO QPM 08/11/20 08/11/20 History doxycycline hyclate 100 mg PO BID 08/11/20 08/11/20 History losartan 50 mg PO HS 08/11/20 08/11/20 History triamcinolone acetonide 1 applic TOPICAL BID 08/11/20 08/11/20 History [Aristocort] Patient History Medical History Acute renal failure superimposed on stage 3 chronic kidney disease Atrial fibrillation Cellulitis of left lower extremity CHF (congestive heart failure) Chronic anemia CKD (chronic kidney disease), stage III CVA (cerebral vascular accident) 01/2018; residual right sided weakness Degenerative disc disease Depression Diabetes type 2, controlled Diabetic peripheral neuropathy associated with type 2 diabetes mellitus Dyslipidemia Hypertension Hypomagnesemia Hypophosphatemia Mixed sleep apnea Pacemaker Peripheral arterial disease Personal history of diabetic foot ulcer Pseudomonas infection Sepsis (10/25/13) Tachy-geronimo syndrome Surgical History Gastric bypass status for obesity Family History Other Cancer Diabetes Hypertension Social History Smoking Status: Never smoker Second Hand Exposure: No; Do You Dip or Chew Tobacco: No; Hx Alcohol Use: Yes Hx Substance Use: No Preferred Language: Mongolian 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 Ability: Effective Manager Online Required: No Beliefs That Will Affect Care: None marital status: Current Living Situation: Alone and Family Current Living Situation Comment: DAUGHTER LIVES UPSTAIRS Other Information That Helps Us Care for You: No Feels Safe at Home: Yes Safety Concerns: Feels Safe At This Time Assistive Devices: Walker Review of Systems Review of Systems: All systems reviewed & are unremarkable except as noted in HPI & below Physical Exam Physical Exam: General: No acute distress, comfortable. HEENT: Head is normal. Sclerae anicteric. Lungs: Clear to auscultation bilaterally Cardiac: Regular rate and rhythm. Extremities/vascular: --lower extremities chronic venous stasis to the shins bilaterally --Radial 2+ bilaterally --Pedal pulses difficult to palpate but all present on doppler --RT foot dressed. normal cap refill in 3-5 toes. Wound images reviewed. Psychiatric: Affect appropriate. Alert and oriented. Results & Data ([facility]) Vital Signs (Past 12 Hours) Vital Signs Temp Pulse Pulse Resp BP Pulse Ox 08/19/20 15:10 97.9 F 60 16 106/70 97 08/19/20 07:20 97.7 F 60 16 126/77 96 PG Care Time/CCT Total # of Minutes Spent Total Time Spent with Patient: Total time spent is greater than 50% in coordination of care (as documented) at patient's floor/unit and/or counseling patient: Coding Level of Care Code 98671 Initial Inpt Care Lvl 3 Diagnoses Peripheral arterial disease I73.9
[2020-08-19] MEDS: ATORVASTATIN 40 MG TAB PO SCH (20:30)
[2020-08-19] MEDS: ASPIRIN 81 MG ECTAB PO SCH (20:30)
[2020-08-19] MEDS: CYANOCOBALAMIN 500 MCG TABLET (VITAMIN B-12) PO SCH (20:31)
[2020-08-19] MEDS: CHOLECALCIFEROL 1,000 UNITS 25 MCG TAB PO SCH (20:31)
[2020-08-19] MEDS: LOSARTAN POTASSIUM 50 MG TAB PO SCH (20:32)
[2020-08-19] MEDS: TAMSULOSIN HCL 0.4 MG CAP PO SCH (20:33)
[2020-08-19] MEDS: MULTIVITAMIN CHEWABLE TAB PO SCH (20:33)
[2020-08-19 22:12] LABS: Partial Thromboplastin Ratio 1.9
[2020-08-19 22:29] LABS: Partial Thromboplastin Time 49.5 Seconds (21.0-31.0)
[2020-08-20] MEDS: DOXYCYCLINE HYCLATE 100 MG CAP PO SCH ×2 (05:52→17:31)
[2020-08-20 06:11] LABS: Hematocrit (blood only) 42.2 % (42-52); Hemoglobin 13.9 g/dL (14.0-18.0); Mean Corpuscular Hemoglobin 30.5 pg (25-34); Mean Corpuscular Hgb Conc 32.9 g/dL (32-36); Mean Corpuscular Volume 92.5 fL (80-100); Mean Platelet Volume 9.7 fL (7.4-10.4); Platelet Count 368 K/uL (130-400); RDW Coefficient of Variation 14.6 % (11.5-14.5); RDW Standard Deviation 49.7 fL (36.4-46.3); Red Blood Count 4.56 M/uL (4.7-6.1); White Blood Count 5.53 K/uL (4.8-10.8)
[2020-08-20 06:30] LABS: INR 1.8 (0.9-1.1); Prothrombin Time 17.2 Seconds (9.0-12.0)
[2020-08-20 06:39] LABS: C Reactive Protein 6.78 mg/dl (0-0.29); Calcium 8.6 mg/dl (8.5-10.1); Est GFR (African American) 69.5 ml/min; Est GFR (Non-African American) 59.9 ml/min; Magnesium 2.1 mg/dl (1.8-2.4); Potassium 4.2 mmol/L (3.5-5.1)
[2020-08-20 06:40] LABS: Partial Thromboplastin Time 51.8 Seconds (21.0-31.0)
--- NOTE | 2020-08-20 07:49 | Hospitalist Progress Note ---
Date of Service August 20, 2020 Assessment & Plan (1) Necrotizing fasciitis: (2) Osteomyelitis of toe: (3) Ulcer of left great toe due to diabetes mellitus: (4) Cellulitis of right lower limb: (5) Leukocytosis: (6) Diabetic peripheral neuropathy associated with type 2 diabetes mellitus: (7) Venous insufficiency: (8) Peripheral arterial disease: (9) Hypertension: (10) Mixed sleep apnea: (11) CKD (chronic kidney disease), stage III: (12) Dyslipidemia: (13) Pacemaker: Right great toe osteomyelitis Necrotizing fasciitis S/P right great toe amputation POD #8 --Iggy CT:Soft tissue gas present within the tissues surrounding the proximal distal phalanges of the great toe. The findings are consistent with a necrotizing fasciitis. Intramedullary gas involving the distal phalanx of the great toe and distal aspect of the proximal phalanx the great toe. This is an ancillary finding reported in osteomyelitis, and therefore osteomyelitis is strongly suspected. Surgical consultation recommended. Appreciate orthopedics input Blood Cx:No growth to date IV Dapto, Rocephin>>Transitioned to Doxy, Keflex Plan to continue antibiotics for 10 to 14-day course as recommended by Ortho ID consulted Need to follow-up with Dr. Weiss/ upon discharge Continue daily dressing Case management to help with discharge planning Needs SNF Placement when appropriate Needs debridement given demarcation of wound Planned for debridement on Monday Orthopedics following Obtained AKOSUA to assess circulation - Noncompressible peripheral arteries. Therefore AKOSUA's cannot be calculated. Follows w/ Dr. Castro (vascular) as outpatient, Dr. Castro consulted, arterial Doppler of right lower extremity ordered UTI Urine Cx: E. coli Received Rocephin on Keflex as above DM II HbA1C:6.9 Hold Home regimen Continue Insulin therapy Monitor BGs Atrial fibrillation Rate control Continue Coumadin for anticoagulation Monitor INR: 1.8 Hold Coumadin given plan for debridement on Monday IV heparin for now H/O CVA Chronic right-sided numbness as per patient Continue aspirin, statin H/O CHF Chronic venous stasis insufficiency Continue home diuretics Monitor volume status CKD III Baseline creatinine 1.5-1.9 as per records Monitor renal function Avoid nephrotoxic agents as able DVT Px: Coumadin-held IV Heparin Code Status :Full code Disposition: likely SNF when appropriate Admission and Anticipated Discharge Date Admission Date: August 11, 2020 Subjective Patient is seen in follow-up of necrotizing fasciitis, osteomyelitis States feeling well Sitting in chair, working on computer, in no acute distress Denies any foot pain (history of neuropathy) Needs debridement given demarcation of wound -plan for Monday, with orthopedics Denies fever, chills, chest pain, shortness of breath, dizziness, nausea, abdominal pain Vascular (Dr. Castro) also consulted Review of Systems Review of Systems: All systems reviewed & are unremarkable except as noted in HPI & below Constitutional: no fever and no chills Respiratory: no cough and no dyspnea Cardiovascular: no chest pain and no palpitations Gastrointestinal: no abdominal pain, no nausea and no vomiting Physical Exam Physical Exam: General Appearance: Moderately built and nourished, no apparent distress Head: normocephalic, Atraumatic Eyes: normal inspection, EOMI Neck: supple, Trachea midline Respiratory/Chest: Normal breath sounds, CTA Cardiovascular: S1, S2, No murmur Abdomen/GI:Soft, Non tender, Bowel sounds present Extremities/Musculoskeletal:normal inspection, B/L LE edema, Right Foot in dressing Neurologic/Psych:AAOX3, grossly no focal neurological deficits Skin: normal color, warm Results & Data Results & Data ([facility]) Vital Signs (Past 12 Hours) Vital Signs Temp Pulse Pulse Resp BP Pulse Ox Pulse Ox 08/20/20 07:40 36.6 C 60 16 132/76 97 08/19/20 23:06 36.6 C 66 18 155/87 H 97 08/19/20 20:10 97 Laboratory Results 08/20/20 08/20/20 08/20/20 Range/Units 05:53 05:53 05:53 WBC 5.53 (4.8-10.8) K/uL RBC 4.56 L (4.7-6.1) M/uL Hgb 13.9 L (14.0-18.0) g/dL Hct 42.2 (42-52) % MCV 92.5 (80-100) fL MCH 30.5 (25-34) pg MCHC 32.9 (32-36) g/dL RDW Std Deviation 49.7 H (36.4-46.3) fL RDW Coeff of Jason 14.6 H (11.5-14.5) % Plt Count 368 (130-400) K/uL MPV 9.7 (7.4-10.4) fL ESR 69 H (0-20) mm/hr PT (9.0-12.0) Seconds INR (0.9-1.1) APTT (21.0-31.0) Seconds PTT Ratio Sodium 141 (136-145) mmol/L Potassium 4.2 (3.5-5.1) mmol/L Chloride 110 H (98-107) mmol/L Carbon Dioxide 27 (21-32) mmol/L Anion Gap 4.0 (3-11) BUN 19 H (7-18) mg/dl Creatinine 1.23 (0.6-1.4) mg/dl Est Cr Clr Drug Dosing 74.0 ml/min Est GFR ( Amer) 69.5 ml/min Est GFR (Non-Af Amer) 59.9 ml/min BUN/Creatinine Ratio 15.0 (10-20) Glucose 105 H (70-99) mg/dl POC Glucose (70-99) mg/dl Calcium 8.6 (8.5-10.1) mg/dl Phosphorus 4.0 (2.5-4.9) mg/dl Magnesium 2.1 (1.8-2.4) mg/dl C-Reactive Protein 6.78 H (0-0.29) mg/dl 08/20/20 08/19/20 08/19/20 Range/Units 05:53 21:38 20:40 WBC (4.8-10.8) K/uL RBC (4.7-6.1) M/uL Hgb (14.0-18.0) g/dL Hct (42-52) % MCV (80-100) fL MCH (25-34) pg MCHC (32-36) g/dL RDW Std Deviation (36.4-46.3) fL RDW Coeff of Jason (11.5-14.5) % Plt Count (130-400) K/uL MPV (7.4-10.4) fL ESR (0-20) mm/hr PT 17.2 H (9.0-12.0) Seconds INR 1.8 H (0.9-1.1) APTT 51.8 H* 49.5 H* (21.0-31.0) Seconds PTT Ratio 2.0 1.9 Sodium (136-145) mmol/L Potassium (3.5-5.1) mmol/L Chloride (98-107) mmol/L Carbon Dioxide (21-32) mmol/L Anion Gap (3-11) BUN (7-18) mg/dl Creatinine (0.6-1.4) mg/dl Est Cr Clr Drug Dosing ml/min Est GFR ( Amer) ml/min Est GFR (Non-Af Amer) ml/min BUN/Creatinine Ratio (10-20) Glucose (70-99) mg/dl POC Glucose 155 H (70-99) mg/dl Calcium (8.5-10.1) mg/dl Phosphorus (2.5-4.9) mg/dl Magnesium (1.8-2.4) mg/dl C-Reactive Protein (0-0.29) mg/dl 08/19/20 08/19/20 08/19/20 Range/Units 17:03 14:32 12:15 WBC (4.8-10.8) K/uL RBC (4.7-6.1) M/uL Hgb (14.0-18.0) g/dL Hct (42-52) % MCV (80-100) fL MCH (25-34) pg MCHC (32-36) g/dL RDW Std Deviation (36.4-46.3) fL RDW Coeff of Jason (11.5-14.5) % Plt Count (130-400) K/uL MPV (7.4-10.4) fL ESR (0-20) mm/hr PT (9.0-12.0) Seconds INR (0.9-1.1) APTT 41.9 H (21.0-31.0) Seconds PTT Ratio 1.6 Sodium (136-145) mmol/L Potassium (3.5-5.1) mmol/L Chloride (98-107) mmol/L Carbon Dioxide (21-32) mmol/L Anion Gap (3-11) BUN (7-18) mg/dl Creatinine (0.6-1.4) mg/dl Est Cr Clr Drug Dosing ml/min Est GFR ( Amer) ml/min Est GFR (Non-Af Amer) ml/min BUN/Creatinine Ratio (10-20) Glucose (70-99) mg/dl POC Glucose 101 H 100 H (70-99) mg/dl Calcium (8.5-10.1) mg/dl Phosphorus (2.5-4.9) mg/dl Magnesium (1.8-2.4) mg/dl C-Reactive Protein (0-0.29) mg/dl 08/19/20 08/19/20 Range/Units 08:18 06:59 WBC (4.8-10.8) K/uL RBC (4.7-6.1) M/uL Hgb (14.0-18.0) g/dL Hct (42-52) % MCV (80-100) fL MCH (25-34) pg MCHC (32-36) g/dL RDW Std Deviation (36.4-46.3) fL RDW Coeff of Jason (11.5-14.5) % Plt Count (130-400) K/uL MPV (7.4-10.4) fL ESR (0-20) mm/hr PT (9.0-12.0) Seconds INR (0.9-1.1) APTT (21.0-31.0) Seconds PTT Ratio Sodium 141 (136-145) mmol/L Potassium 4.1 (3.5-5.1) mmol/L Chloride 109 H (98-107) mmol/L Carbon Dioxide 27 (21-32) mmol/L Anion Gap 5.0 (3-11) BUN 19 H (7-18) mg/dl Creatinine 1.18 (0.6-1.4) mg/dl Est Cr Clr Drug Dosing 77.1 ml/min Est GFR ( Amer) 73.1 ml/min Est GFR (Non-Af Amer) 63.0 ml/min BUN/Creatinine Ratio 15.8 (10-20) Glucose 106 H (70-99) mg/dl POC Glucose 105 H (70-99) mg/dl Calcium 8.5 (8.5-10.1) mg/dl Phosphorus (2.5-4.9) mg/dl Magnesium (1.8-2.4) mg/dl C-Reactive Protein (0-0.29) mg/dl Medications Administered Current Inpatient Medications Acetaminophen (Acetaminophen 325 Mg Tab) 650 mg PO Q4H PRN PRN Reason: pain/fever Stop: 09/10/20 20:17 Last Admin: 08/17/20 08:12 Dose: 650 mg Documented by: Aspirin (Aspirin 81 Mg Ectab) 81 mg PO QPM [facility] Stop: 09/10/20 20:59 Last Admin: 08/19/20 20:30 Dose: 81 mg Documented by: Atorvastatin Calcium (Atorvastatin 40 Mg Tab) 40 mg PO PM [facility] Stop: 09/10/20 20:59 Last Admin: 08/19/20 20:30 Dose: 40 mg Documented by: Betamethasone Dipropion Augmented (Betamethasone Dip Aug 0.05% Oint 15 Gm Tube) 1 appln EXT DAILY PRN PRN Reason: Dry Skin Stop: 09/10/20 20:17 Cephalexin HCl (Cephalexin 500 Mg Cap) 500 mg PO QID [facility]; Protocol Stop: 08/25/20 16:59 Last Admin: 08/19/20 20:31 Dose: 500 mg Documented by: Cyanocobalamin (Cyanocobalamin 500 Mcg Tablet (Vitamin B-12)) 1,000 mcg PO PM [facility] Stop: 09/10/20 20:59 Last Admin: 08/19/20 20:31 Dose: 1,000 mcg Documented by: Dextrose (Dextrose 50% 50 Ml Syringe) 25 - 50 ml IV UD PRN; Protocol PRN Reason: Hypoglycemia Protocol Stop: 09/10/20 21:44 Docusate Sodium (Docusate Sodium 100 Mg Cap) 100 mg PO BID [facility] Stop: 09/11/20 20:59 Last Admin: 08/19/20 20:32 Dose: Not Given Documented by: Doxycycline Hyclate (Doxycycline Hyclate 100 Mg Cap) 100 mg PO Q12H [facility]; Protocol Stop: 08/25/20 17:59 Last Admin: 08/20/20 05:52 Dose: 100 mg Documented by: Furosemide (Furosemide 20 Mg Tab) 20 mg PO MoWeFr@0900 [facility] Stop: 09/11/20 08:59 Last Admin: 08/19/20 08:44 Dose: 20 mg Documented by: Furosemide (Furosemide 40 Mg Tab) 40 mg PO SuTuThSa@0900 [facility] Stop: 09/12/20 08:59 Last Admin: 08/18/20 08:24 Dose: 40 mg Documented by: Glucagon (Glucagon For Inj 1 Mg Vial) 1 mg IM UD PRN; Protocol PRN Reason: Hypoglycemia Protocol Stop: 09/10/20 21:44 Glucose (Glucose 40% Gel 15 Gm Tube) 15 - 30 gm PO UD PRN; Protocol PRN Reason: Hypoglycemia Protocol Stop: 09/10/20 21:44 Glucose (Glucose 10 Tabs/Tube) 4 - 8 tabs PO UD PRN; Protocol PRN Reason: Hypoglycemia Protocol Stop: 09/10/20 21:44 Hydromorphone HCl (Hydromorphone Inj 0.5 Mg/0.5 Ml Syr) 0.5 mg IV Q4H PRN PRN Reason: Pain or Pre PT Stop: 08/26/20 16:29 Heparin Sodium/Dextrose (Heparin Sodium/Dextrose) 25,000 units in 500 mls @ 26 mls/hr IV .[id number] [facility]; Protocol Stop: 09/17/20 15:29 Last Titration: 08/20/20 07:05 Dose: 1,300 units/hr, 26 mls/hr Documented by: Insulin Aspart (Insulin Aspart 100 Units/Ml 3 Ml Pen) 0 units SC ACHS [facility] Stop: 09/11/20 05:59 Last Admin: 08/19/20 20:46 Dose: 1 units Documented by: Insulin Glargine (Insulin Glargine Solostar 100 Units/Ml 3 Ml Pen) 5 units SC BID [facility] Stop: 09/13/20 20:59 Last Admin: 08/19/20 20:46 Dose: 5 units Documented by: Losartan Potassium (Losartan Potassium 50 Mg Tab) 50 mg PO HS [facility] Stop: 09/10/20 20:59 Last Admin: 08/19/20 20:32 Dose: 50 mg Documented by: Magnesium Oxide (Magnesium Oxide 400 Mg Tab) 400 mg PO BID [facility] Stop: 09/10/20 20:59 Last Admin: 08/19/20 20:32 Dose: 400 mg Documented by: Miscellaneous (Jardiance~Order Awaiting Action) 1 ea N/A QS [facility] Stop: 09/10/20 21:44 Last Admin: 08/19/20 23:42 Dose: Not Given Documented by: Miscellaneous (Carbohydrates For Hypoglycemia ) 15 - 30 gm PO UD PRN PRN Reason: Hypoglycemia Treatment Stop: 09/10/20 21:44 Multivitamins/Folic Acid/Vitamin C (Multivitamin Chewable Tab) 1 tab PO PM [facility] Stop: 09/10/20 20:59 Last Admin: 08/19/20 20:33 Dose: 1 tab Documented by: Naloxone HCl (Naloxone Hcl 0.4 Mg/1 Ml Vial/Carp) 0.1 mg IV Q5M PRN PRN Reason: Oversedation/Resp Depression Stop: 09/11/20 16:29 Nystatin (Nystatin Powder 15gm Btl) 1 appln EXT BID [facility] Stop: 09/11/20 20:59 Last Admin: 08/19/20 20:34 Dose: Not Given Documented by: Ondansetron HCl (Ondansetron Inj 2 Mg/Ml 2 Ml Vial) 4 mg IV Q6H PRN PRN Reason: Nausea Stop: 09/10/20 20:17 Last Admin: 08/16/20 13:11 Dose: 4 mg Documented by: Oxycodone HCl (Oxycodone Hcl Ir 5 Mg Tab (Immediate Release)) 5 - 10 mg PO Q4H PRN PRN Reason: Pain or Pre PT Stop: 08/26/20 16:29 Last Admin: 08/15/20 21:44 Dose: 5 mg Documented by: Polyethylene Glycol (Polyethylene (Miralax) 17 Gm Pack) 17 gm PO DAILY PRN PRN Reason: Constipation Stop: 09/10/20 20:17 Tamsulosin HCl (Tamsulosin Hcl 0.4 Mg Cap) 0.4 mg PO PM [facility] Stop: 09/10/20 20:59 Last Admin: 08/19/20 20:33 Dose: 0.4 mg Documented by: Triamcinolone Acetonide (Triamcinolone Acet 0.1% Cr 15 Gm Tube) 1 appln TOP BID [facility] Stop: 09/10/20 20:59 Last Admin: 08/19/20 20:34 Dose: Not Given Documented by: Vitamin D (Cholecalciferol 1,000 Units 25 Mcg Tab) 2,000 units PO PM [facility] Stop: 09/10/20 20:59 Last Admin: 08/19/20 20:31 Dose: 2,000 units Documented by: Warfarin Sodium (Warfarin Sod 0.5 Mg Tab) 1.5 mg PO SuTuThSa@1600 [facility] Stop: 09/14/20 15:59 Last Admin: 08/15/20 17:31 Dose: 1.5 mg Documented by: Warfarin Sodium (Warfarin Sod 3 Mg Tab) 3 mg PO MoWeFr@1600 [facility] Stop: 09/13/20 15:59 Last Admin: 08/14/20 17:06 Dose: 3 mg Documented by:
[2020-08-20] MEDS: cephALEXin 500 MG CAP PO SCH ×4 (08:58→20:49)
[2020-08-20] MEDS: DOCUSATE SODIUM 100 MG CAP PO SCH ×2 (08:58→20:50)
[2020-08-20] MEDS: MAGNESIUM OXIDE 400 MG TAB PO SCH ×2 (08:59→20:51)
[2020-08-20] MEDS: FUROSEMIDE 40 MG TAB PO SCH (08:59)
[2020-08-20] MEDS: INSULIN GLARGINE SOLOSTAR 100 UNITS/ML 3 ML PEN SC SCH ×2 (08:59→20:54)
[2020-08-20] MEDS: INSULIN ASPART 100 UNITS/ML 3 ML PEN SC SCH ×4 (09:00→20:53)
[2020-08-20] MEDS: TRIAMCINOLONE ACET 0.1% CR 15 GM TUBE TOP SCH ×2 (09:12→20:52)
[2020-08-20] MEDS: NYSTATIN POWDER 15GM BTL EXT SCH ×2 (09:12→20:52)
[2020-08-20] MEDS: HEPARIN SODIUM/DEXTROSE 25,000 UNITS/500 ML BAG IV SCH (10:09)
--- NOTE | 2020-08-20 10:35 | Orthopedic Progress Note ---
Date of Service August 20, 2020 Assessment & Plan (1) Osteomyelitis of toe: Postop day 8 and is post amputation right great toe with increased demarcation and eschar with maceration around the wound We will plan on doing irrigation debridement with primary closure tomorrow with Dr. Weiss. I discussed with the patient that he may have further amputation of the remainder bone and/or metatarsal head. Patient understands. Continue elevation of the right foot. We will make n.p.o. after midnight for pending surgery tomorrow. Admission and Anticipated Discharge Date Admission Date: August 11, 2020 Subjective Patient sitting up in bed awake and alert eating breakfast today. No complaints this morning. Patient is postop day 8 status post right great toe partial ampu tation. We had initially signed off however after wound care had seen him for his dressing changes, they noted increasing demarcation with maceration around the wound itself. Patient was continued on Aquacel Ag dressings and after reviewing it with the wound care team, I discussed it with Dr. Weiss. It was felt that he would need a further irrigation debridement and possible further amputation. Patient has been seen by vascular team and a duplex scan has been ordered and as well as ABIs. Unless something new head occurred on the duplex scan compared for the last 1, plans will be to follow-up in the office with Dr. Castro in the near future. This is been discussed with the patient. Physical Exam Physical Exam: Examination of his incision site shows that the sutures are still intact however he does have increased demarcation and eschar noted around the wound itself. There is no purulent drainage noted at this time no foul odor. Does have some maceration tween the remainder of the first toe and second toe. He denies pain at this time. Nursing to redressed with Aquacel Ag, 4 x 4's and Kerlix wrap. Results & Data ([facility]) Vital Signs (Past 12 Hours) Vital Signs Temp Pulse Pulse Resp BP Pulse Ox 08/20/20 07:40 36.6 C 60 16 132/76 97 08/19/20 23:06 36.6 C 66 18 155/87 H 97
--- NOTE | 2020-08-20 15:41 | Ultrasound Report ---
US ankle/brachial index ltd CLINICAL HISTORY: Please check 2nd toe pressure, TBI present. Nondiagnostic AKOSUA due to noncompressibl e peripheral arteries. COMPARISON STUDY: Ultrasound ankle-brachial index 08/18/2020. FINDINGS: The right brachial pressure was 119 and the right toe pressure was 44. A left brachial pres sure was 121 and the left toe pressure was 141. Therefore, the right right TBI was measured to be 0.3 7 in the left tibia was calculated to be 1.17. There are dampened waveforms seen within the right toe . IMPRESSION: 1. Abnormally low right TBI measured to be 0.37. 2. Normal left TBI measured to be 1.17. ACT 112: Negative or not required by law. Electronically signed by: Josafat Hein M.D. 08/20/2020 3:39 PM
[2020-08-20] MEDS: ASPIRIN 81 MG ECTAB PO SCH (20:49)
[2020-08-20] MEDS: ATORVASTATIN 40 MG TAB PO SCH (20:49)
[2020-08-20] MEDS: CYANOCOBALAMIN 500 MCG TABLET (VITAMIN B-12) PO SCH (20:50)
[2020-08-20] MEDS: CHOLECALCIFEROL 1,000 UNITS 25 MCG TAB PO SCH (20:50)
[2020-08-20] MEDS: MULTIVITAMIN CHEWABLE TAB PO SCH (20:51)
[2020-08-20] MEDS: LOSARTAN POTASSIUM 50 MG TAB PO SCH (20:51)
[2020-08-20] MEDS: TAMSULOSIN HCL 0.4 MG CAP PO SCH (20:52)
[2020-08-21] MEDS: HEPARIN SODIUM/DEXTROSE 25,000 UNITS/500 ML BAG IV SCH (04:06)
[2020-08-21] MEDS: DOXYCYCLINE HYCLATE 100 MG CAP PO SCH ×2 (05:54→19:15)
[2020-08-21 07:53] LABS: Hematocrit (blood only) 42.6 % (42-52); Hemoglobin 14.2 g/dL (14.0-18.0); Mean Corpuscular Hemoglobin 30.8 pg (25-34); Mean Corpuscular Hgb Conc 33.3 g/dL (32-36); Mean Corpuscular Volume 92.4 fL (80-100); Mean Platelet Volume 9.6 fL (7.4-10.4); Platelet Count 351 K/uL (130-400); RDW Coefficient of Variation 14.6 % (11.5-14.5); RDW Standard Deviation 49.6 fL (36.4-46.3); Red Blood Count 4.61 M/uL (4.7-6.1); White Blood Count 4.89 K/uL (4.8-10.8)
[2020-08-21 08:09] LABS: Partial Thromboplastin Ratio 1.2; Partial Thromboplastin Time 31.1 Seconds (21.0-31.0)
[2020-08-21 08:14] LABS: BUN Creatinine Ratio 16.3 (10-20); Calcium 8.6 mg/dl (8.5-10.1); Creatinine Clr Calc Pharmacy 77.1 ml/min; Est GFR (African American) 73.1 ml/min; Potassium 4.2 mmol/L (3.5-5.1)
[2020-08-21] MEDS: INSULIN ASPART 100 UNITS/ML 3 ML PEN SC SCH ×4 (08:15→22:26)
[2020-08-21] MEDS: DOCUSATE SODIUM 100 MG CAP PO SCH ×2 (08:19→22:24)
[2020-08-21] MEDS: MAGNESIUM OXIDE 400 MG TAB PO SCH ×2 (08:20→21:58)
[2020-08-21] MEDS: cephALEXin 500 MG CAP PO SCH ×3 (08:20→19:15)
--- NOTE | 2020-08-21 08:21 | Hospitalist Progress Note ---
Date of Service August 21, 2020 Assessment & Plan (1) Necrotizing fasciitis: (2) Osteomyelitis of toe: (3) Ulcer of left great toe due to diabetes mellitus: (4) Cellulitis of right lower limb: (5) Leukocytosis: (6) Diabetic peripheral neuropathy associated with type 2 diabetes mellitus: (7) Venous insufficiency: (8) Peripheral arterial disease: (9) Hypertension: (10) Mixed sleep apnea: (11) CKD (chronic kidney disease), stage III: (12) Dyslipidemia: (13) Pacemaker: Right great toe osteomyelitis Necrotizing fasciitis S/P right great toe amputation POD #8 --Iggy CT:Soft tissue gas present within the tissues surrounding the proximal distal phalanges of the great toe. The findings are consistent with a necrotizing fasciitis. Intramedullary gas involving the distal phalanx of the great toe and distal aspect of the proximal phalanx the great toe. This is an ancillary finding reported in osteomyelitis, and therefore osteomyelitis is strongly suspected. Surgical consultation recommended. Appreciate orthopedics input Blood Cx:No growth to date IV Dapto, Rocephin>>Transitioned to Doxy, Keflex Plan to continue antibiotics for 10 to 14-day course as recommended by Ortho ID consulted Need to follow-up with Dr. Weiss/ upon discharge Continue daily dressing Case management to help with discharge planning Needs SNF Placement when appropriate Needs debridement given demarcation of wound - plan for OR today (08/21/20) w/ Dr. Weiss Orthopedics following PAD - poor wound healing Obtained AKOSUA to assess circulation - Noncompressible peripheral arteries. Therefore AKOSUA's cannot be calculated. Follows w/ Dr. Castro (vascular) as outpatient, Dr. Castro consulted, arterial Doppler of right lower extremity ordered Right lower extremity arterial duplex with significant tibial disease and reduced toe pressure of 44 mmHg. Concerned current blood supply is inadequate to heal surgical wound. Patient is to undergo surgical debridement later today and is OK to do so from vascular standpoint. Feel he would benefit from right lower extremity angiogram with likely tibial intervention at some point to promote wound healing. This tentatively could be done Monday if he is still inpatient. Otherwise can be arranged as an outpatient. UTI Urine Cx: E. coli Received Rocephin on Keflex as above DM II HbA1C:6.9 Hold Home regimen Continue Insulin therapy Monitor BGs Atrial fibrillation Rate control Continue Coumadin for anticoagulation Monitor INR: 1.8 Hold Coumadin given plan for debridement on Monday IV heparin, now on hold - restart 18-24 hrs after surgery H/O CVA Chronic right-sided numbness as per patient Continue aspirin, statin H/O CHF Chronic venous stasis insufficiency Continue home diuretics Monitor volume status CKD III Baseline creatinine 1.5-1.9 as per records Monitor renal function Avoid nephrotoxic agents as able DVT Px: Coumadin-held IV Heparin Code Status :Full code Disposition: likely SNF when appropriate Admission and Anticipated Discharge Date Admission Date: August 11, 2020 Subjective Patient is seen in follow-up of necrotizing fasciitis, osteomyelitis States that he's feeling well Sitting in chair, working on computer, in no acute distress Denies any foot pain (history of neuropathy) Needs debridement given demarcation of wound -plan for OR today Denies fever, chills, chest pain, shortness of breath, dizziness, nausea, abdominal pain Vascular (Dr. Castro) also consulted - poss. procedure planned for Monday Review of Systems Review of Systems: All systems reviewed & are unremarkable except as noted in HPI & below Constitutional: no fever and no chills Respiratory: no cough and no dyspnea Cardiovascular: no chest pain and no palpitations Gastrointestinal: no abdominal pain, no nausea and no vomiting Physical Exam Physical Exam: General Appearance: Moderately built and nourished, no apparent distress Head: normocephalic, Atraumatic Eyes: normal inspection, EOMI Neck: supple, Trachea midline Respiratory/Chest: Normal breath sounds, CTA Cardiovascular: S1, S2, No murmur Abdomen/GI:Soft, Non tender, Bowel sounds present Extremities/Musculoskeletal:normal inspection, B/L LE edema, Right Foot in dressing Neurologic/Psych:AAOX3, grossly no focal neurological deficits Skin: normal color, warm Results & Data Results & Data ([facility]) Vital Signs (Past 12 Hours) Vital Signs Temp Pulse Resp BP Pulse Ox Pulse Ox 08/21/20 05:49 36.6 C 63 17 127/79 96 08/20/20 22:35 36.9 C 60 18 129/79 97 08/20/20 22:30 97 Laboratory Results 08/21/20 08/21/20 08/21/20 Range/Units 08:17 07:43 07:43 WBC 4.89 (4.8-10.8) K/uL RBC 4.61 L (4.7-6.1) M/uL Hgb 14.2 (14.0-18.0) g/dL Hct 42.6 (42-52) % MCV 92.4 (80-100) fL MCH 30.8 (25-34) pg MCHC 33.3 (32-36) g/dL RDW Std Deviation 49.6 H (36.4-46.3) fL RDW Coeff of Jason 14.6 H (11.5-14.5) % Plt Count 351 (130-400) K/uL MPV 9.6 (7.4-10.4) fL APTT (21.0-31.0) Seconds PTT Ratio Sodium 141 (136-145) mmol/L Potassium 4.2 (3.5-5.1) mmol/L Chloride 109 H (98-107) mmol/L Carbon Dioxide 27 (21-32) mmol/L Anion Gap 5.0 (3-11) BUN 19 H (7-18) mg/dl Creatinine 1.18 (0.6-1.4) mg/dl Est Cr Clr Drug Dosing 77.1 ml/min Est GFR ( Amer) 73.1 ml/min Est GFR (Non-Af Amer) 63.0 ml/min BUN/Creatinine Ratio 16.3 (10-20) Glucose 90 (70-99) mg/dl POC Glucose 92 (70-99) mg/dl Calcium 8.6 (8.5-10.1) mg/dl 08/21/20 08/20/20 08/20/20 Range/Units 07:43 20:26 16:36 WBC (4.8-10.8) K/uL RBC (4.7-6.1) M/uL Hgb (14.0-18.0) g/dL Hct (42-52) % MCV (80-100) fL MCH (25-34) pg MCHC (32-36) g/dL RDW Std Deviation (36.4-46.3) fL RDW Coeff of Jason (11.5-14.5) % Plt Count (130-400) K/uL MPV (7.4-10.4) fL APTT 31.1 H (21.0-31.0) Seconds PTT Ratio 1.2 Sodium (136-145) mmol/L Potassium (3.5-5.1) mmol/L Chloride (98-107) mmol/L Carbon Dioxide (21-32) mmol/L Anion Gap (3-11) BUN (7-18) mg/dl Creatinine (0.6-1.4) mg/dl Est Cr Clr Drug Dosing ml/min Est GFR ( Amer) ml/min Est GFR (Non-Af Amer) ml/min BUN/Creatinine Ratio (10-20) Glucose (70-99) mg/dl POC Glucose 121 H 96 (70-99) mg/dl Calcium (8.5-10.1) mg/dl 08/20/20 Range/Units 12:16 WBC (4.8-10.8) K/uL RBC (4.7-6.1) M/uL Hgb (14.0-18.0) g/dL Hct (42-52) % MCV (80-100) fL MCH (25-34) pg MCHC (32-36) g/dL RDW Std Deviation (36.4-46.3) fL RDW Coeff of Jason (11.5-14.5) % Plt Count (130-400) K/uL MPV (7.4-10.4) fL APTT (21.0-31.0) Seconds PTT Ratio Sodium (136-145) mmol/L Potassium (3.5-5.1) mmol/L Chloride (98-107) mmol/L Carbon Dioxide (21-32) mmol/L Anion Gap (3-11) BUN (7-18) mg/dl Creatinine (0.6-1.4) mg/dl Est Cr Clr Drug Dosing ml/min Est GFR ( Amer) ml/min Est GFR (Non-Af Amer) ml/min BUN/Creatinine Ratio (10-20) Glucose (70-99) mg/dl POC Glucose 121 H (70-99) mg/dl Calcium (8.5-10.1) mg/dl Medications Administered Current Inpatient Medications Acetaminophen (Acetaminophen 325 Mg Tab) 650 mg PO Q4H PRN PRN Reason: pain/fever Stop: 09/10/20 20:17 Last Admin: 08/17/20 08:12 Dose: 650 mg Documented by: Aspirin (Aspirin 81 Mg Ectab) 81 mg PO QPM [facility] Stop: 09/10/20 20:59 Last Admin: 08/20/20 20:49 Dose: 81 mg Documented by: Atorvastatin Calcium (Atorvastatin 40 Mg Tab) 40 mg PO PM [facility] Stop: 09/10/20 20:59 Last Admin: 08/20/20 20:49 Dose: 40 mg Documented by: Betamethasone Dipropion Augmented (Betamethasone Dip Aug 0.05% Oint 15 Gm Tube) 1 appln EXT DAILY PRN PRN Reason: Dry Skin Stop: 09/10/20 20:17 Cephalexin HCl (Cephalexin 500 Mg Cap) 500 mg PO QID [facility]; Protocol Stop: 08/25/20 16:59 Last Admin: 08/20/20 20:49 Dose: 500 mg Documented by: Cyanocobalamin (Cyanocobalamin 500 Mcg Tablet (Vitamin B-12)) 1,000 mcg PO PM [facility] Stop: 09/10/20 20:59 Last Admin: 08/20/20 20:50 Dose: 1,000 mcg Documented by: Dextrose (Dextrose 50% 50 Ml Syringe) 25 - 50 ml IV UD PRN; Protocol PRN Reason: Hypoglycemia Protocol Stop: 09/10/20 21:44 Docusate Sodium (Docusate Sodium 100 Mg Cap) 100 mg PO BID [facility] Stop: 09/11/20 20:59 Last Admin: 08/20/20 20:50 Dose: Not Given Documented by: Doxycycline Hyclate (Doxycycline Hyclate 100 Mg Cap) 100 mg PO Q12H [facility]; Protocol Stop: 08/25/20 17:59 Last Admin: 08/21/20 05:54 Dose: 100 mg Documented by: Furosemide (Furosemide 20 Mg Tab) 20 mg PO MoWeFr@0900 [facility] Stop: 09/11/20 08:59 Last Admin: 08/19/20 08:44 Dose: 20 mg Documented by: Furosemide (Furosemide 40 Mg Tab) 40 mg PO SuTuThSa@0900 [facility] Stop: 09/12/20 08:59 Last Admin: 08/20/20 08:59 Dose: 40 mg Documented by: Glucagon (Glucagon For Inj 1 Mg Vial) 1 mg IM UD PRN; Protocol PRN Reason: Hypoglycemia Protocol Stop: 09/10/20 21:44 Glucose (Glucose 40% Gel 15 Gm Tube) 15 - 30 gm PO UD PRN; Protocol PRN Reason: Hypoglycemia Protocol Stop: 09/10/20 21:44 Glucose (Glucose 10 Tabs/Tube) 4 - 8 tabs PO UD PRN; Protocol PRN Reason: Hypoglycemia Protocol Stop: 09/10/20 21:44 Hydromorphone HCl (Hydromorphone Inj 0.5 Mg/0.5 Ml Syr) 0.5 mg IV Q4H PRN PRN Reason: Pain or Pre PT Stop: 08/26/20 16:29 Heparin Sodium/Dextrose (Heparin Sodium/Dextrose) 25,000 units in 500 mls @ 0 mls/hr IV .Q0M [facility]; Protocol Stop: 09/17/20 15:29 Last Admin: 08/21/20 04:06 Dose: Not Given Documented by: Insulin Aspart (Insulin Aspart 100 Units/Ml 3 Ml Pen) 0 units SC ACHS [facility] Stop: 09/11/20 05:59 Last Admin: 08/21/20 08:15 Dose: Not Given Documented by: Insulin Glargine (Insulin Glargine Solostar 100 Units/Ml 3 Ml Pen) 5 units SC BID [facility] Stop: 09/13/20 20:59 Last Admin: 08/20/20 20:54 Dose: 5 units Documented by: Losartan Potassium (Losartan Potassium 50 Mg Tab) 50 mg PO HS [facility] Stop: 09/10/20 20:59 Last Admin: 08/20/20 20:51 Dose: 50 mg Documented by: Magnesium Oxide (Magnesium Oxide 400 Mg Tab) 400 mg PO BID [facility] Stop: 09/10/20 20:59 Last Admin: 08/20/20 20:51 Dose: 400 mg Documented by: Miscellaneous (Jardiance~Order Awaiting Action) 1 ea N/A QS [facility] Stop: 09/10/20 21:44 Last Admin: 08/20/20 23:33 Dose: Not Given Documented by: Miscellaneous (Carbohydrates For Hypoglycemia ) 15 - 30 gm PO UD PRN PRN Reason: Hypoglycemia Treatment Stop: 09/10/20 21:44 Multivitamins/Folic Acid/Vitamin C (Multivitamin Chewable Tab) 1 tab PO PM [facility] Stop: 09/10/20 20:59 Last Admin: 08/20/20 20:51 Dose: 1 tab Documented by: Naloxone HCl (Naloxone Hcl 0.4 Mg/1 Ml Vial/Carp) 0.1 mg IV Q5M PRN PRN Reason: Oversedation/Resp Depression Stop: 09/11/20 16:29 Nystatin (Nystatin Powder 15gm Btl) 1 appln EXT BID [facility] Stop: 09/11/20 20:59 Last Admin: 08/20/20 20:52 Dose: 1 appln Documented by: Ondansetron HCl (Ondansetron Inj 2 Mg/Ml 2 Ml Vial) 4 mg IV Q6H PRN PRN Reason: Nausea Stop: 09/10/20 20:17 Last Admin: 08/16/20 13:11 Dose: 4 mg Documented by: Oxycodone HCl (Oxycodone Hcl Ir 5 Mg Tab (Immediate Release)) 5 - 10 mg PO Q4H PRN PRN Reason: Pain or Pre PT Stop: 08/26/20 16:29 Last Admin: 08/15/20 21:44 Dose: 5 mg Documented by: Polyethylene Glycol (Polyethylene (Miralax) 17 Gm Pack) 17 gm PO DAILY PRN PRN Reason: Constipation Stop: 09/10/20 20:17 Tamsulosin HCl (Tamsulosin Hcl 0.4 Mg Cap) 0.4 mg PO PM [facility] Stop: 09/10/20 20:59 Last Admin: 08/20/20 20:52 Dose: 0.4 mg Documented by: Triamcinolone Acetonide (Triamcinolone Acet 0.1% Cr 15 Gm Tube) 1 appln TOP BID [facility] Stop: 09/10/20 20:59 Last Admin: 08/20/20 20:52 Dose: Not Given Documented by: Vitamin D (Cholecalciferol 1,000 Units 25 Mcg Tab) 2,000 units PO PM [facility] Stop: 09/10/20 20:59 Last Admin: 08/20/20 20:50 Dose: 2,000 units Documented by: Warfarin Sodium (Warfarin Sod 0.5 Mg Tab) 1.5 mg PO SuTuThSa@1600 [facility] Stop: 09/14/20 15:59 Last Admin: 08/15/20 17:31 Dose: 1.5 mg Documented by: Warfarin Sodium (Warfarin Sod 3 Mg Tab) 3 mg PO MoWeFr@1600 [facility] Stop: 09/13/20 15:59 Last Admin: 08/14/20 17:06 Dose: 3 mg Documented by:
[2020-08-21] MEDS: TRIAMCINOLONE ACET 0.1% CR 15 GM TUBE TOP SCH ×2 (08:22→22:26)
[2020-08-21] MEDS: NYSTATIN POWDER 15GM BTL EXT SCH ×2 (08:22→22:25)
[2020-08-21] MEDS: INSULIN GLARGINE SOLOSTAR 100 UNITS/ML 3 ML PEN SC SCH ×2 (09:26→22:27)
[2020-08-21] MEDS: FUROSEMIDE 20 MG TAB PO SCH (09:26)
--- NOTE | 2020-08-21 10:01 | Vascular Medicine ProgressNote ---
Date of Service August 21, 2020 Assessment & Plan (1) Peripheral arterial disease: 2. RT great toe osteomyelitis post amputation 3. Chronic venous insufficiency 4. Type 2 diabetes 5. Dyslipidemia 6. Atrial fibrillation on Coumadin Right lower extremity arterial duplex with significant tibial disease and reduced toe pressure of 44 mmHg. Concerned current blood supply is inadequate to heal surgical wound. Patient is to undergo surgical debridement later today and is OK to do so from vascular standpoint Feel he would benefit from right lower extremity angiogram with likely tibial intervention at some point to promote wound healing. This tentatively could be done Monday if he is still inpatient. Otherwise can be arranged as an outpatient. Admission and Anticipated Discharge Date Admission Date: August 11, 2020 Subjective Patient has no acute complaints today. Denies any foot pain. Scheduled to undergo surgical debridement this afternoon with Dr. Weiss. RLE arterial duplex with significant tibial disease. Right TBI 0.37 (44 mmg). Review of Systems Review of Systems: All systems reviewed & are unremarkable except as noted in HPI & below Physical Exam Physical Exam: General: No acute distress, comfortable. HEENT: Head is normal. Sclerae anicteric. Lungs: Clear to auscultation bilaterally Cardiac: Regular rate and rhythm. Extremities/vascular: --lower extremities chronic venous stasis to the shins bilaterally. No significant edema --Radial 2+ bilaterally --Pedal pulses difficult to palpate --RT foot dressed. normal cap refill in 3-5 toes. Psychiatric: Affect appropriate. Alert and oriented. Results & Data ([facility]) Vital Signs (Past 12 Hours) Vital Signs Temp Pulse Resp BP Pulse Ox Pulse Ox 08/21/20 05:49 36.6 C 63 17 127/79 96 08/20/20 22:35 36.9 C 60 18 129/79 97 08/20/20 22:30 97 Laboratory Results Laboratory Results - last 24 hr 08/20/20 08/20/20 08/20/20 12:16 16:36 20:26 WBC RBC Hgb Hct MCV MCH MCHC RDW Std Deviation RDW Coeff of Jason Plt Count MPV APTT PTT Ratio Sodium Potassium Chloride Carbon Dioxide Anion Gap BUN Creatinine Est Cr Clr Drug Dosing Est GFR ( Amer) Est GFR (Non-Af Amer) BUN/Creatinine Ratio Glucose POC Glucose 121 H 96 121 H Calcium 08/21/20 08/21/20 08/21/20 07:43 07:43 07:43 WBC 4.89 RBC 4.61 L Hgb 14.2 Hct 42.6 MCV 92.4 MCH 30.8 MCHC 33.3 RDW Std Deviation 49.6 H RDW Coeff of Jason 14.6 H Plt Count 351 MPV 9.6 APTT 31.1 H PTT Ratio 1.2 Sodium 141 Potassium 4.2 Chloride 109 H Carbon Dioxide 27 Anion Gap 5.0 BUN 19 H Creatinine 1.18 Est Cr Clr Drug Dosing 77.1 Est GFR ( Amer) 73.1 Est GFR (Non-Af Amer) 63.0 BUN/Creatinine Ratio 16.3 Glucose 90 POC Glucose Calcium 8.6 08/21/20 08:17 WBC RBC Hgb Hct MCV MCH MCHC RDW Std Deviation RDW Coeff of Jason Plt Count MPV APTT PTT Ratio Sodium Potassium Chloride Carbon Dioxide Anion Gap BUN Creatinine Est Cr Clr Drug Dosing Est GFR ( Amer) Est GFR (Non-Af Amer) BUN/Creatinine Ratio Glucose POC Glucose 92 Calcium PG Care Time/CCT Total # of Minutes Spent Total Time Spent with Patient: Total time spent is greater than 50% in coordination of care (as documented) at patient's floor/unit and/or counseling patient: Coding Level of Care Code 08952 Subseq Hosp Care Lvl 3 Diagnoses Peripheral arterial disease I73.9
--- NOTE | 2020-08-21 14:27 | Ultrasound Report ---
US arterial duplex LE RT HISTORY: 70 years-old Male PAD peripheral artery disease. Type 2 diabetes mellitus with chronic righ t lower extremity foot ulcer. COMPARISON: Doppler study 10/09/2019. TECHNIQUE: Multiple real-time sonographic images of the right lower extremity arterial structures wer e obtained assessing grayscale appearance, color and spectral flow. FINDINGS: Diffuse atherosclerotic plaque. Triphasic waveforms within the common femoral, profunda femoris, supe rficial femoral, and popliteal arteries. Biphasic waveforms in the posterior tibial artery with eleva marilee peak systolic velocities measuring up to 293 cm/s proximally. Mildly blunted waveforms within the distal aspect of the posterior tibial artery with peak systolic velocities measuring 53 cm/s. Biphas ic waveforms within the peroneal artery with peak systolic velocities measuring up to 188 cm/s proxim ally. Blunted monophasic waveforms of the distal peroneal artery with peak systolic velocities measur ing up to 11 cm/s. Biphasic waveforms within the anterior tibial artery noted with elevated peak syst olic velocities measuring up to 357 cm/s. No arterial occlusion identified. These findings are new fr om comparison. IMPRESSION: Atherosclerotic vascular disease without arterial occlusion. Elevated peak systolic veloc ities within the calf compatible with areas of multifocal stenoses as above. ACT 112: Negative or not required by law. The above report was generated using voice recognition software. It may contain grammatical, syntax o r spelling errors. Dictated: 08/20/2020 8:27 AM Transcribed: 08/20/2020 9:01 AM Jessica [id number] [email or web address] Electronically signed by: Monroe Lloyd M.D. 08/20/2020 9:04 AM
[2020-08-21] MEDS ORDERED: ePHEDrine sulfate 50 MG/ML AMP IV PRN (15:49)
[2020-08-21] MEDS ORDERED: ATROPINE SULFATE 0.1 MG/ML 10ML SYR IV PRN (15:49)
[2020-08-21] MEDS ORDERED: HYDROmorphone INJ 1 MG/ML SYRINGE IV PRN (15:49)
[2020-08-21] MEDS ORDERED: ONDANSETRON INJ 2 MG/ML 2 ML VIAL IV PRN (15:49)
[2020-08-21] MEDS ORDERED: fentaNYL citrate 100 MCG/2 ML VIAL IV PRN (15:49)
--- NOTE | 2020-08-21 15:49 | Anesthesiology Consultation ---
Date of Service August 21, 2020 Assessment & Plan (1) Encounter for pre-operative examination: Chart Review Chart Review: Acceptable Risk for Surgery and Patient NOT seen in Pre Admission Testing covid neg 08/11/20. Patient has been hospitalized since then so no repeat covid necessary. Consults Requested none History Surgery Operation Date: 08/12/20 07:00 Proposed Procedures p Right Great Toe Amputation - Jhony Yung DO Operation Date: 08/21/20 07:00 Proposed Procedures p Irrigation and Debridement Right Toe Amputation Site, - Sal Weiss DO s with Possible Revision Amputation - Sal Weiss DO Operation Date: 08/24/20 08:00 Proposed Procedures p Angio Extremity Bilateral - Roger Castro MD Height/Weight Height: 5 ft 11 in Weight: 114.6 kg Allergies Allergy/AdvReac Type Severity Reaction Status Date / Time No Known Allergies Allergy Verified 08/11/20 18:49 Medications Home Medications Medication Instructions Recorded Confirmed Last Taken Flintstones Complete (iron) 1 tab PO PM #0 04/11/13 08/11/20 08/10/20 atorvastatin 40 mg PO PM #0 tab 01/08/17 08/11/20 08/10/20 warfarin 3 mg MOWEFR #0 tab 01/08/17 08/11/20 08/10/20 cholecalciferol (vitamin D3) 2,000 unit PO PM 10/18/17 08/11/20 08/10/20 [Vitamin D3] cyanocobalamin (vitamin B-12) 1,000 mcg PO PM 05/06/19 08/11/20 08/10/20 furosemide 20 mg PO MOWEFR 05/06/19 08/11/20 08/10/20 furosemide 40 mg PO SUTUTHSA 05/06/19 08/11/20 08/09/20 tamsulosin 0.4 mg PO PM 05/06/19 08/11/20 08/10/20 magnesium oxide 400 mg PO BID 09/26/19 08/11/20 08/10/20 Jardiance 10 mg PO DAILY 11/04/19 08/11/20 08/10/20 betamethasone dipropionate 1 applic TOPICAL DAILY PRN 11/04/19 08/11/20 Unknown warfarin 1.5 mg PO SUTUTHSA 11/04/19 08/11/20 08/09/20 aspirin 81 mg PO QPM 08/11/20 08/11/20 08/10/20 doxycycline hyclate 100 mg PO BID 08/11/20 08/11/20 Unknown losartan 50 mg PO HS 08/11/20 08/11/20 08/10/20 triamcinolone acetonide 1 applic TOPICAL BID 08/11/20 08/11/20 08/10/20 [Aristocort] Active Medications Generic Name Dose Route Start Last Admin Trade Name Freq PRN Reason Stop Dose Admin Acetaminophen 650 mg 08/11/20 20:18 08/17/20 08:12 Acetaminophen 325 Mg Tab PO 09/10/20 20:17 650 mg Q4H PRN Administration pain/fever Aspirin 81 mg 08/11/20 21:00 08/20/20 20:49 Aspirin 81 Mg Ectab PO 09/10/20 20:59 81 mg QPM COOKIE Administration Atorvastatin Calcium 40 mg 08/11/20 21:00 08/20/20 20:49 Atorvastatin 40 Mg Tab PO 09/10/20 20:59 40 mg PM COOKIE Administration Cephalexin HCl 500 mg 08/16/20 17:00 08/21/20 12:26 Cephalexin 500 Mg Cap PO 08/25/20 16:59 500 mg QID COOKIE Administration Protocol Cyanocobalamin 1,000 mcg 08/11/20 21:00 08/20/20 20:50 Cyanocobalamin 500 Mcg Tablet (Vitamin B-12) PO 09/10/20 20:59 1,000 mcg PM COOKIE Administration Docusate Sodium 100 mg 08/12/20 21:00 08/21/20 08:19 Docusate Sodium 100 Mg Cap PO 09/11/20 20:59 Not Given BID COOKIE Doxycycline Hyclate 100 mg 08/16/20 18:00 08/21/20 05:54 Doxycycline Hyclate 100 Mg Cap PO 08/25/20 17:59 100 mg Q12H COOKIE Administration Protocol Furosemide 20 mg 08/12/20 09:00 08/21/20 09:26 Furosemide 20 Mg Tab PO 09/11/20 08:59 Not Given [email or web address] COOKIE Furosemide 40 mg 08/13/20 09:00 08/20/20 08:59 Furosemide 40 Mg Tab PO 09/12/20 08:59 40 mg [email or web address] COOKIE Administration Heparin Sodium/Dextrose 25,000 units in 500 mls @ 0 mls/hr 08/18/20 15:30 08/21/20 04:06 Heparin Sodium/Dextrose IV 09/17/20 15:29 Not Given .Q0M COOKIE Protocol 0 UNITS/HR Insulin Aspart 0 units 08/12/20 21:00 08/21/20 12:20 Insulin Aspart 100 Units/Ml 3 Ml Pen SC 09/11/20 05:59 Not Given ACHS COOKIE Insulin Glargine 5 units 08/14/20 21:00 08/21/20 09:26 Insulin Glargine Solostar 100 Units/Ml 3 Ml Pen SC 09/13/20 20:59 Not Given BID COOKIE Losartan Potassium 50 mg 08/11/20 21:00 08/20/20 20:51 Losartan Potassium 50 Mg Tab PO 09/10/20 20:59 50 mg HS COOKIE Administration Magnesium Oxide 400 mg 08/11/20 21:00 08/21/20 08:20 Magnesium Oxide 400 Mg Tab PO 09/10/20 20:59 400 mg BID COOKIE Administration Miscellaneous 1 ea 08/11/20 21:45 08/21/20 12:27 Jardiance~Order Awaiting Action N/A 09/10/20 21:44 Not Given QS [facility] Multivitamins/Folic Acid/Vitamin C 1 tab 08/11/20 21:00 08/20/20 20:51 Multivitamin Chewable Tab PO 09/10/20 20:59 1 tab PM COOKIE Administration Nystatin 1 appln 08/12/20 21:00 08/21/20 08:22 Nystatin Powder 15gm Btl EXT 09/11/20 20:59 Not Given BID COOKIE Ondansetron HCl 4 mg 08/11/20 20:18 08/16/20 13:11 Ondansetron Inj 2 Mg/Ml 2 Ml Vial IV 09/10/20 20:17 4 mg Q6H PRN Administration Nausea Oxycodone HCl 5 - 10 mg 08/12/20 16:30 08/15/20 21:44 Oxycodone Hcl Ir 5 Mg Tab (Immediate Release) PO 08/26/20 16:29 5 mg Q4H PRN Administration Pain or Pre PT Tamsulosin HCl 0.4 mg 08/11/20 21:00 08/20/20 20:52 Tamsulosin Hcl 0.4 Mg Cap PO 09/10/20 20:59 0.4 mg PM COOKIE Administration Triamcinolone Acetonide 1 appln 08/11/20 21:00 08/21/20 08:22 Triamcinolone Acet 0.1% Cr 15 Gm Tube TOP 09/10/20 20:59 Not Given BID COOKIE Vitamin D 2,000 units 08/11/20 21:00 08/20/20 20:50 Cholecalciferol 1,000 Units 25 Mcg Tab PO 09/10/20 20:59 2,000 units PM COOKIE Administration Warfarin Sodium 1.5 mg 08/15/20 16:00 08/15/20 17:31 Warfarin Sod 0.5 Mg Tab PO 09/14/20 15:59 1.5 mg [email or web address] COOKIE Administration Warfarin Sodium 3 mg 08/14/20 16:00 08/14/20 17:06 Warfarin Sod 3 Mg Tab PO 09/13/20 15:59 3 mg [email or web address] COOKIE Administration NPO Date Last Intake of Fluids: 08/20/20 Time Last Intake of Fluids: 10:00 Last Intake of Fluids Comment: sip with med Date Last Intake of Solids: 08/20/20 Time Last Intake of Solids: 22:00 Past Medical History Medical History Acute renal failure superimposed on stage 3 chronic kidney disease Atrial fibrillation Cellulitis of left lower extremity CHF (congestive heart failure) Chronic anemia CKD (chronic kidney disease), stage III CVA (cerebral vascular accident) 01/2018; residual right sided weakness Degenerative disc disease Depression Diabetes type 2, controlled Diabetic peripheral neuropathy associated with type 2 diabetes mellitus Dyslipidemia Hypertension Hypomagnesemia Hypophosphatemia Mixed sleep apnea Pacemaker Peripheral arterial disease Personal history of diabetic foot ulcer Pseudomonas infection Sepsis (10/25/13) Tachy-geronimo syndrome Exercise / Class Metabolic Activity III < 4 Walking/Shop/Light housework Past Family History Family History Other Cancer Diabetes Hypertension Past Surgical History Surgical History Gastric bypass status for obesity Right great toe amputation through mid shaft proximal phalanx great toe under MAC 08/12/20. No reported issues from anesthesia. Social History Smoking Status: Never smoker Do You Dip or Chew Tobacco: No Hx Alcohol Use: Yes alcohol intake frequency: holidays/special occasions only Hx Substance Use: No substance use type: does not use Physical Exam Vital Signs Last Vital Signs Temp 36.6 C 08/21/20 15:38 Pulse 59 L 08/21/20 15:38 Resp 16 08/21/20 15:38 BP 126/77 08/21/20 15:38 Pulse Ox 97 08/21/20 15:38 Testing Laboratory Results 08/21/20 07:43 08/21/20 07:43 PT 17.2 Seconds (9.0-12.0) H 08/20/20 05:53 INR 1.8 (0.9-1.1) H 08/20/20 05:53 APTT 31.1 Seconds (21.0-31.0) H 08/21/20 07:43 Hemoglobin A1c 6.9 % (4.5-5.6) H 08/11/20 17:33 Urine Color Dark Yellow 08/11/20 17:11 Urine Appearance Cloudy (Clear) A 08/11/20 17:11 Urine pH 5.0 (4.5-7.5) 08/11/20 17:11 Ur Specific [place] 1.028 (1.000-1.030) 08/11/20 17:11 Urine Protein 3+ (Negative) H 08/11/20 17:11 Urine Glucose (UA) 3+ (Negative) H 08/11/20 17:11 Urine Ketones Trace (Negative) H 08/11/20 17:11 Urine Nitrite Negative (Negative) 08/11/20 17:11 Ur Leukocyte Esterase 1+ (Negative) H 08/11/20 17:11 Urine WBC (Auto) >30 /hpf (0-5) H 08/11/20 17:11 Urine RBC (Auto) 0-4 /hpf (0-4) 08/11/20 17:11 U Hyaline Cast (Auto) 1-5 /lpf (0-5) 08/11/20 17:11 U Epithel Cells (Auto) >30 /lpf (0-5) H 08/11/20 17:11 Urine Bacteria (Auto) 4+ (Negative) H 08/11/20 17:11 08/11/20 17:22 Aerobic Blood Culture - Final Blood No growth in Aerobic bottle after 5 days. Anaerobic Blood Culture - Final No growth in Anaerobic bottle after 5 days. 08/11/20 17:33 Aerobic Blood Culture - Final Blood No growth in Aerobic bottle after 5 days. Anaerobic Blood Culture - Final No growth in Anaerobic bottle after 5 days. 08/11/20 17:11 Urine Culture - Final Urine,Clean Catch Escherichia coli 08/21/20 08/21/20 12:16 08:17 POC Glucose 113 H 92 Electrocardiogram Date: 08/11/20 Vpaced, rate 61 Chest X-Ray Date: 08/11/20 XR chest 1V portable CLINICAL HISTORY: SEPSIS COMPARISON STUDY: 05/07/2019 FINDINGS: The heart is mildly enlarged. 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 There is no failure. There is no focal pulmonary consolidation. There are no pleural effusions. Postsurgical changes are present within the cervical spine.[ IMPRESSION: No active disease in the chest. ACT 112: Negative or not required by law. Electronically signed by: Timo Delgado M.D. 08/11/2020 5:57 PM Dictated: 08/11/201756Transcribed: 08/11/201756
[2020-08-21] MEDS ORDERED: PROPOFOL IV EMULSION 10 MG/ML 20 ML VIAL IV ONE ×2 (16:02→17:22)
--- NOTE | 2020-08-21 16:16 | History & Physical Bridge Note ---
Date of Service August 21, 2020 History & Physical Bridge Note I have examined the patient, reviewed the History & Physical and in the interval since the performance of the History & Physical I have noted the following changes of clinical significance: Patient will require revision amputation right great toe today. He will also require debridement of necrotic skin, tendon and fascia. He remains n.p.o. and surgical consent has been signed.
[2020-08-21] MEDS ORDERED: MIDAZOLAM HCL 1 MG/ML 2ML VIAL ONE (16:40)
[2020-08-21] MEDS ORDERED: BUPIVACAINE 0.5 % 5 MG/1 ML MPF 30ML VIAL ONE (16:46)
--- NOTE | 2020-08-21 18:17 | Post Operative Brief Note ---
Immediate Post Op Note v1 Date of Surgery August 21, 2020 Pre & Post Diagnosis Operation Date: 08/12/20 07:00 Pre-Op Diagnosis: Right Foot/Leg Cellulitis Post-Op Diagnosis: Right Foot/Leg Cellulitis Operation Date: 08/21/20 07:00 Pre-Op Diagnosis: Necrosis of skin and fascia right great toe, osteomyelitis right great toe Post-Op Diagnosis: Necrosis of skin and fascia right great toe, osteomyelitis right great toe, abscess right forefoot, flexor tenosynovitis flexor hallucis longus tendon Operation Date: 08/24/20 08:00 <No data on this case meets the specified criteria> I identified the patient and participated in the time-out.: Yes Procedure Operation Date: 08/12/20 07:00 Actual Procedures p Right Great Toe Amputation(Right) - Jhony Yung DO Operation Date: 08/21/20 07:00 Actual Procedures p Irrigation and Debridement Right Great Toe skin, subcutaneous tissue and fascia, resection suppurative flexor hallucis longus tendon, incision and drainage abscess right forefoot (Right) - DO sandie Moore Revision Amputation right great toe(Right) - Sal Weiss DO Operation Date: 08/24/20 08:00 <No data on this case meets the specified criteria> Surgeon Sal Weiss DO C 13 Catapult Operator None Estimated Blood Loss 5 Findings Consistent with Post-Op Diagnosis Specimens Aerobic anaerobic Gram stain abscess right forefoot Drains Hemovac Drain Anesthesia Type MAC Regional Complications none Disposition Accompanied Patient To Recovery: No Disposition: Recovery Room
--- NOTE | 2020-08-21 18:19 | Anesthesiology Progress Note ---
Date of Service August 21, 2020 Anesthesia Post Procedure Vital Signs Vital Signs: Temp Pulse Resp BP BP Pulse Ox Pulse Ox 08/21/20 16:03 37.2 C 61 20 144/72 H 95 08/21/20 15:38 36.6 C 59 L 16 126/77 97 08/21/20 05:49 36.6 C 63 17 127/79 96 08/20/20 22:35 36.9 C 60 18 129/79 97 08/20/20 22:30 97 Pain Intensity Neck: Pain Intensity: 0 Transfer of Care Handoff Completed per policy Notes Mental Status: alert / awake / arousable and participated in evaluation Patient Amnestic to Procedure: Yes Nausea / Vomiting: adequately controlled Pain: adequately controlled Airway Patency, RR, SpO2: stable & adequate BP & HR: stable & adequate Hydration State: stable & adequate Anesthetic Complications: no major complications apparent and Pt Satisfied with anesthetic care
[2020-08-21] MEDS ORDERED: VANCOMYCIN CONSULT ACTIVE PRN (18:45)
[2020-08-21] MEDS ORDERED: VANCOMYCIN HCL 2,750 MG in SODIUM CHLORIDE 0.9% 500 ML IV STA (18:55)
--- NOTE | 2020-08-21 19:12 | Operative Report (OR) ---
DATE OF PROCEDURE: 08/21/2020 PREOPERATIVE DIAGNOSES: 1. Right great toe osteomyelitis. 2. Necrosis of skin, subcutaneous tissues and fascia, right great toe. POSTOPERATIVE DIAGNOSES: 1. Necrosis of skin, subcutaneous tissue and fascia, right great toe. 2. Osteomyelitis, right great toe. 3. Abscess of the right forefoot. 4. Suppurative flexor tenosynovitis of the flexor hallucis longus tendon. PROCEDURES PERFORMED: 1. Right great toe irrigation and debridement including skin, subcutaneous tissue and fascia. 2. Resection of suppurative flexor hallucis longus tendon. 3. Revision amputation, right great toe. 4. Incision and drainage of abscess, right forefoot. SURGEON: Sal Weiss DO. ENVIRONMENTAL SERVICE AIDE: None. ANESTHESIA: MAC regional. SPECIMENS: Aerobic, anaerobic, Gram stain -- abscess, right forefoot. DRAINS: Hemovac x1. COMPLICATIONS: None. BLOOD LOSS: 5 mL. PERTINENT HISTORY: This is a 70-year-old gentleman who had initially presented to the Emergency Depa rtment after he failed wound therapy and his primary physician noted maggots in his foot. He was sen t to the ER, admitted to the hospitalist service. He had an initial debridement, it initially showed some promise; however, noted wound dehiscence and purulent discharge from the foot. The patient was then scheduled for revision surgery today. All potential risks, benefits, complications, alternatives, rehab potential for incomplete relief of symptoms, need for further surgery, DVT, PE, , persistent pain, swelling, scarring, weakness, ne urovascular injury, wound complications, need for further surgery or amputation, possibility of lower limb below-knee amputation was also discussed with the patient. The patient decided to proceed with the procedure as indicated. DESCRIPTION OF PROCEDURE: The patient was taken to the operative suite and placed supine on the oper ating table. After review of consent and identification of appropriate operative site, the patient w as sedated. Tourniquet was applied high on the right thigh; however, was not used during the case. The right lower extremity was then sterilely prepped and draped in the usual sterile fashion, elevate d, and an Esmarch tourniquet was applied over surgical towel at the level of the ankle due to the ext ensive infection in the right foot. Next, the sutures previously placed had been removed with forcep s and scissors and there was noted to be a purulent discharge and drainage with necrotic tissue edges . Once opened with a tenotomy scissors, noted to be purulent discharge, which then tracked deep. Th e necrotic tissue was then sharply debrided with a 15-blade scalpel back to a stable margin. This in cluded resection of necrotic skin, subcutaneous tissue and fascia. Next, the residual great toe was evaluated and noted to be in poor condition with thin cortices and s oftened cancellous bone consistent with chronic osteomyelitis. At this point, the 15 blade scalpel w as used to make a midlateral incision along the medial aspect of the great toe flap extending to the first metatarsophalangeal joint region. Full thickness skin flaps were elevated, gently retracted wi th Marlyn rakes and the remainder of the great toe proximal phalanx was then shelled out with a 15-blad e scalpel with arthrotomy incision, which was carried then circumferentially around the base of the p roximal phalanx of the great toe. Once the necrotic bone was resected and passed off, there was note d to be infection, which tracked along the flexor hallucis longus. The residual tendon was then gras ped with a Rola and placed on stretch, it was noted to have suppurative features with necrotic los s of integrity of the flexor tendon for approximately 1 cm. This was placed on stretch to a point of approximately 2-2.5 cm. A 15 blade scalpel was used to transect the flexor hallucis longus resectin g the damaged portion of the tendon. Next, the tenotomy scissor was then used to explore the surroun ding soft tissue. There was noted to be a sinus tract that tracked into an abscess in the plantar haresh face of the pad of the foot adjacent to the second metatarsal head, however, external to the joint. This abscess was then cultured, aerobic, anaerobic, Gram stain and then drained with suction. A smal l curette was then used to curettage the abscess pocket and then pulsatile lavage was then used to la vage the foot at the great toe and all skin flaps until clear with 3 liters of Ancef. Next, top gloves and top sheet were changed and the flap was revised with a 15 blade scalpel to a low -tension closure and then 3-0 nylon sutures were used to perform plastic closure using a combination of horizontal mattress, vertical mattress and simple sutures. A 10-Ukrainian single lumen Hemovac drain was placed at the resection site to ensure evacuation of any transudate or exudate. A sterile compre ssive forefoot dressing was applied, overwrapped with an Silvestre wrap. The tourniquet was released after local anesthetic was injected around the surgical site with 0.5% Marcaine plain. The patient was aw akened and then taken to recovery in stable condition. Job ID: [id number]
[2020-08-21] MEDS ORDERED: Nursing to Pharmacy 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 SCH ×2 (21:00)
[2020-08-21] MEDS: ATORVASTATIN 40 MG TAB PO SCH (21:58)
[2020-08-21] MEDS: CHOLECALCIFEROL 1,000 UNITS 25 MCG TAB PO SCH (21:58)
[2020-08-21] MEDS: ASPIRIN 81 MG ECTAB PO SCH (21:58)
[2020-08-21] MEDS: LOSARTAN POTASSIUM 50 MG TAB PO SCH (21:58)
[2020-08-21] MEDS: CYANOCOBALAMIN 500 MCG TABLET (VITAMIN B-12) PO SCH (21:58)
[2020-08-21] MEDS: MULTIVITAMIN CHEWABLE TAB PO SCH (21:58)
[2020-08-21] MEDS: TAMSULOSIN HCL 0.4 MG CAP PO SCH (21:58)
[2020-08-22 05:55] LABS: Hematocrit (blood only) 41.6 % (42-52); Hemoglobin 13.7 g/dL (14.0-18.0); Mean Corpuscular Hemoglobin 30.2 pg (25-34); Mean Corpuscular Hgb Conc 32.9 g/dL (32-36); Mean Corpuscular Volume 91.8 fL (80-100); Mean Platelet Volume 9.7 fL (7.4-10.4); Platelet Count 314 K/uL (130-400); RDW Coefficient of Variation 14.4 % (11.5-14.5); RDW Standard Deviation 48.8 fL (36.4-46.3); Red Blood Count 4.53 M/uL (4.7-6.1); White Blood Count 6.14 K/uL (4.8-10.8)
[2020-08-22 06:07] LABS: INR 1.4 (0.9-1.1); Partial Thromboplastin Ratio 1.1; Partial Thromboplastin Time 30.2 Seconds (21.0-31.0); Prothrombin Time 13.6 Seconds (9.0-12.0)
[2020-08-22] MEDS: HEPARIN SODIUM/DEXTROSE 25,000 UNITS/500 ML BAG IV SCH ×3 (06:22→22:13)
[2020-08-22 06:23] LABS: BUN Creatinine Ratio 16.3 (10-20); Calcium 8.4 mg/dl (8.5-10.1); Creatinine Clr Calc Pharmacy 85.9 ml/min; Est GFR (African American) 83.2 ml/min; Est GFR (Non-African American) 71.8 ml/min; Potassium 4.1 mmol/L (3.5-5.1)
[2020-08-22] MEDS: VANCOMYCIN HCL 1,000 MG in SODIUM CHLORIDE 0.9% 250 ML IV SCH ×2 (06:24→18:24)
[2020-08-22] MEDS: DOCUSATE SODIUM 100 MG CAP PO SCH ×2 (07:59→21:06)
[2020-08-22] MEDS: TRIAMCINOLONE ACET 0.1% CR 15 GM TUBE TOP SCH ×2 (07:59→21:07)
[2020-08-22] MEDS: oxyCODONE HCL IR 5 MG TAB (IMMEDIATE RELEASE) PO PRN ×3 (08:01→19:11)
[2020-08-22] MEDS: MAGNESIUM OXIDE 400 MG TAB PO SCH ×2 (08:03→21:06)
[2020-08-22] MEDS: FUROSEMIDE 40 MG TAB PO SCH (08:03)
--- NOTE | 2020-08-22 08:07 | Orthopedic Progress Note ---
Date of Service August 22, 2020 Assessment & Plan (1) Osteomyelitis of toe: POD#1 1. Right great toe irrigation and debridement including skin, subcutaneous tissue and fascia. 2. Resection of suppurative flexor hallucis longus tendon. 3. Revision amputation, right great toe. 4. Incision and drainage of abscess, right forefoot. Plan on dressing change tomorrow. Patient will require 2 weeks IV antibiotics and another 4 weeks of oral antibiotic after. He is scheduled for angiogram on Monday. NWBe RLE. Cultures pending, grams stain with few ploys, no organisms. Monitor drain output. Will follow Admission and Anticipated Discharge Date Admission Date: August 11, 2020 Subjective POD#1. Patient resting in bed comfortably. Having minimal pain. Denies chest pain, sob,dizziness, fever, chills, n/v/d. Physical Exam Physical Exam: Right foot dressing is c/d/i, no calf tenderness. Hemovac in place minimal drainage currently. Constitutional: well developed and well nourished; no acute distress Results & Data ([facility]) Vital Signs (Past 12 Hours) Vital Signs Temp Pulse Resp BP BP Pulse Ox 08/22/20 07:24 36.6 C 67 16 110/69 95 08/22/20 03:33 36.8 C 60 16 109/66 95 08/21/20 22:08 36.8 C 62 18 126/75 98 08/21/20 21:22 36.3 C L 61 18 145/82 H 100
[2020-08-22] MEDS ORDERED: PIPERACILL/TAZOBAC CONSULT ACTIVE PRN (08:26)
--- NOTE | 2020-08-22 08:29 | Hospitalist Progress Note ---
Date of Service August 22, 2020 Assessment & Plan (1) Necrotizing fasciitis: (2) Osteomyelitis of toe: (3) Ulcer of left great toe due to diabetes mellitus: (4) Cellulitis of right lower limb: (5) Leukocytosis: (6) Diabetic peripheral neuropathy associated with type 2 diabetes mellitus: (7) Venous insufficiency: (8) Peripheral arterial disease: (9) Hypertension: (10) Mixed sleep apnea: (11) CKD (chronic kidney disease), stage III: (12) Dyslipidemia: (13) Pacemaker: Right great toe osteomyelitis Necrotizing fasciitis S/P right great toe amputation on 08/12/2020 --[place] CT:Soft tissue gas present within the tissues surrounding the proximal distal phalanges of the great toe. The findings are consistent with a necrotizing fasciitis. Intramedullary gas involving the distal phalanx of the great toe and distal aspect of the proximal phalanx the great toe. This is an ancillary finding reported in osteomyelitis, and therefore osteomyelitis is strongly suspected. Surgical consultation recommended. Appreciate orthopedics input Blood Cx:No growth to date IV Dapto, Rocephin>>Transitioned to Doxy, Keflex Plan to continue antibiotics for 10 to 14-day course as recommended by Ortho ID consulted Need to follow-up with Dr. Weiss/ upon discharge Continue daily dressing Case management to help with discharge planning Needs SNF Placement when appropriate Now s/p debridement given demarcation of wound (08/21/20) w/ Dr. Weiss - osteomyelitis identified, and forefoot abscess Restart IV antibiotics, follow cultures from the OR Orthopedics following PAD - poor wound healing Obtained AKOSUA to assess circulation - Noncompressible peripheral arteries. Therefore AKOSUA's cannot be calculated. Follows w/ Dr. Castro (vascular) as outpatient, Dr. Castro consulted, arterial Doppler of right lower extremity ordered Right lower extremity arterial duplex with significant tibial disease and reduced toe pressure of 44 mmHg. Concerned current blood supply is inadequate to heal surgical wound. Patient is to undergo surgical debridement later today and is OK to do so from vascular standpoint. Feel he would benefit from right lower extremity angiogram with likely tibial intervention at some point to promote wound healing. This tentatively could be done Monday (08/24/20) if he is still inpatient. Otherwise can be arranged as an outpatient. UTI Urine Cx: E. coli Received Rocephin on Keflex as above DM II HbA1C:6.9 Hold Home regimen Continue Insulin therapy Monitor BGs Atrial fibrillation Rate control Continue Coumadin for anticoagulation Monitor INR: 1.8 Hold Coumadin given plan for debridement on Monday IV heparin, now on hold - restart 18-24 hrs after surgery H/O CVA Chronic right-sided numbness as per patient Continue aspirin, statin H/O CHF Chronic venous stasis insufficiency Continue home diuretics Monitor volume status CKD III Baseline creatinine 1.5-1.9 as per records Monitor renal function Avoid nephrotoxic agents as able DVT Px: Coumadin-held IV Heparin Code Status :Full code Disposition: likely SNF when appropriate Admission and Anticipated Discharge Date Admission Date: August 11, 2020 Subjective Patient is seen in follow-up of necrotizing fasciitis, osteomyelitis Yesterday underwent debridement again, identified with osteomyelitis and forefoot abscess States that he's feeling well, he is in no acute distress Denies any foot pain (history of neuropathy) Denies fever, chills, chest pain, shortness of breath, dizziness, nausea, abdominal pain Vascular (Dr. Castro) also consulted - poss. procedure planned for Monday Review of Systems Review of Systems: All systems reviewed & are unremarkable except as noted in HPI & below Constitutional: no fever and no chills Respiratory: no cough and no dyspnea Cardiovascular: no chest pain and no palpitations Gastrointestinal: no abdominal pain, no nausea and no vomiting Physical Exam Physical Exam: General Appearance: Moderately built and nourished, no apparent distress Head: normocephalic, Atraumatic Eyes: normal inspection, EOMI Neck: supple, Trachea midline Respiratory/Chest: Normal breath sounds, CTA Cardiovascular: S1, S2, No murmur Abdomen/GI:Soft, Non tender, Bowel sounds present Extremities/Musculoskeletal:normal inspection, B/L LE edema, Right Foot in dressing, + drain w/ serosang. fluid Neurologic/Psych:AAOX3, grossly no focal neurological deficits Skin: normal color, warm Results & Data Results & Data ([facility]) Vital Signs (Past 12 Hours) Vital Signs Temp Pulse Resp BP BP Pulse Ox 08/22/20 07:24 36.6 C 67 16 110/69 95 08/22/20 03:33 36.8 C 60 16 109/66 95 08/21/20 22:08 36.8 C 62 18 126/75 98 07/09/21 21:22 36.3 C L 61 18 145/82 H 100 Laboratory Results 08/22/20 08/22/20 08/22/20 Range/Units 08:00 05:28 05:28 WBC 6.14 (4.8-10.8) K/uL RBC 4.53 L (4.7-6.1) M/uL Hgb 13.7 L (14.0-18.0) g/dL Hct 41.6 L (42-52) % MCV 91.8 (80-100) fL MCH 30.2 (25-34) pg MCHC 32.9 (32-36) g/dL RDW Std Deviation 48.8 H (36.4-46.3) fL RDW Coeff of Jason 14.4 (11.5-14.5) % Plt Count 314 (130-400) K/uL MPV 9.7 (7.4-10.4) fL PT (9.0-12.0) Seconds INR (0.9-1.1) APTT (21.0-31.0) Seconds PTT Ratio Sodium 139 (136-145) mmol/L Potassium 4.1 (3.5-5.1) mmol/L Chloride 109 H (98-107) mmol/L Carbon Dioxide 28 (21-32) mmol/L Anion Gap 2.0 L (3-11) BUN 17 (7-18) mg/dl Creatinine 1.06 (0.6-1.4) mg/dl Est Cr Clr Drug Dosing 85.9 ml/min Est GFR ( Amer) 83.2 ml/min Est GFR (Non-Af Amer) 71.8 ml/min BUN/Creatinine Ratio 16.3 (10-20) Glucose 101 H (70-99) mg/dl POC Glucose 86 (70-99) mg/dl Calcium 8.4 L (8.5-10.1) mg/dl 08/22/20 08/21/20 08/21/20 Range/Units 05:28 21:23 18:15 WBC (4.8-10.8) K/uL RBC (4.7-6.1) M/uL Hgb (14.0-18.0) g/dL Hct (42-52) % MCV (80-100) fL MCH (25-34) pg MCHC (32-36) g/dL RDW Std Deviation (36.4-46.3) fL RDW Coeff of Jason (11.5-14.5) % Plt Count (130-400) K/uL MPV (7.4-10.4) fL PT 13.6 H (9.0-12.0) Seconds INR 1.4 H (0.9-1.1) APTT 30.2 (21.0-31.0) Seconds PTT Ratio 1.1 Sodium (136-145) mmol/L Potassium (3.5-5.1) mmol/L Chloride (98-107) mmol/L Carbon Dioxide (21-32) mmol/L Anion Gap (3-11) BUN (7-18) mg/dl Creatinine (0.6-1.4) mg/dl Est Cr Clr Drug Dosing ml/min Est GFR ( Amer) ml/min Est GFR (Non-Af Amer) ml/min BUN/Creatinine Ratio (10-20) Glucose (70-99) mg/dl POC Glucose 88 91 (70-99) mg/dl Calcium (8.5-10.1) mg/dl 08/21/20 08/21/20 Range/Units 16:09 12:16 WBC (4.8-10.8) K/uL RBC (4.7-6.1) M/uL Hgb (14.0-18.0) g/dL Hct (42-52) % MCV (80-100) fL MCH (25-34) pg MCHC (32-36) g/dL RDW Std Deviation (36.4-46.3) fL RDW Coeff of Jason (11.5-14.5) % Plt Count (130-400) K/uL MPV (7.4-10.4) fL PT (9.0-12.0) Seconds INR (0.9-1.1) APTT (21.0-31.0) Seconds PTT Ratio Sodium (136-145) mmol/L Potassium (3.5-5.1) mmol/L Chloride (98-107) mmol/L Carbon Dioxide (21-32) mmol/L Anion Gap (3-11) BUN (7-18) mg/dl Creatinine (0.6-1.4) mg/dl Est Cr Clr Drug Dosing ml/min Est GFR ( Amer) ml/min Est GFR (Non-Af Amer) ml/min BUN/Creatinine Ratio (10-20) Glucose (70-99) mg/dl POC Glucose 86 113 H (70-99) mg/dl Calcium (8.5-10.1) mg/dl Medications Administered Current Inpatient Medications Acetaminophen (Acetaminophen 325 Mg Tab) 650 mg PO Q4H PRN PRN Reason: pain/fever Stop: 09/10/20 20:17 Last Admin: 08/17/20 08:12 Dose: 650 mg Documented by: Aspirin (Aspirin 81 Mg Ectab) 81 mg PO QPM [facility]IE Stop: 09/10/20 20:59 Last Admin: 08/21/20 21:58 Dose: 81 mg Documented by: Atorvastatin Calcium (Atorvastatin 40 Mg Tab) 40 mg PO PM [facility]IE Stop: 09/10/20 20:59 Last Admin: 08/21/20 21:58 Dose: 40 mg Documented by: Betamethasone Dipropion Augmented (Betamethasone Dip Aug 0.05% Oint 15 Gm Tube) 1 appln EXT DAILY PRN PRN Reason: Dry Skin Stop: 09/10/20 20:17 Cyanocobalamin (Cyanocobalamin 500 Mcg Tablet (Vitamin B-12)) 1,000 mcg PO PM [facility]IE Stop: 09/10/20 20:59 Last Admin: 08/21/20 21:58 Dose: 1,000 mcg Documented by: Dextrose (Dextrose 50% 50 Ml Syringe) 25 - 50 ml IV UD PRN; Protocol PRN Reason: Hypoglycemia Protocol Stop: 09/10/20 21:44 Docusate Sodium (Docusate Sodium 100 Mg Cap) 100 mg PO BID [place] Stop: 09/11/20 20:59 Last Admin: 08/22/20 07:59 Dose: Not Given Documented by: Furosemide (Furosemide 20 Mg Tab) 20 mg PO MoWeFr@0900 [facility] Stop: 09/11/20 08:59 Last Admin: 08/21/20 09:26 Dose: Not Given Documented by: Furosemide (Furosemide 40 Mg Tab) 40 mg PO SuTuThSa@0900 [facility] Stop: 09/12/20 08:59 Last Admin: 08/22/20 08:03 Dose: 40 mg Documented by: Glucagon (Glucagon For Inj 1 Mg Vial) 1 mg IM UD PRN; Protocol PRN Reason: Hypoglycemia Protocol Stop: 09/10/20 21:44 Glucose (Glucose 40% Gel 15 Gm Tube) 15 - 30 gm PO UD PRN; Protocol PRN Reason: Hypoglycemia Protocol Stop: 09/10/20 21:44 Glucose (Glucose 10 Tabs/Tube) 4 - 8 tabs PO UD PRN; Protocol PRN Reason: Hypoglycemia Protocol Stop: 09/10/20 21:44 Hydromorphone HCl (Hydromorphone Inj 0.5 Mg/0.5 Ml Syr) 0.5 mg IV Q4H PRN PRN Reason: Pain or Pre PT Stop: 08/26/20 16:29 Heparin Sodium/Dextrose (Heparin Sodium/Dextrose) 25,000 units in 500 mls @ 26 mls/hr IV .[id number] [facility]; Protocol Stop: 09/17/20 15:29 Last Admin: 08/22/20 06:22 Dose: Not Given Documented by: Vancomycin HCl 1,000 mg/ (Sodium Chloride) 270 mls @ 200 mls/hr IV Q12H [facility]; Protocol Stop: 10/03/20 06:59 Last Infusion: 08/22/20 07:59 Dose: Infused Documented by: Piperacillin Sod/Tazobactam (Sod 4.5 gm/ Dextrose) 120 mls @ 240 mls/hr IV NOW ONE; Protocol Stop: 08/22/20 08:59 Insulin Aspart (Insulin Aspart 100 Units/Ml 3 Ml Pen) 0 units SC ACHS [facility] Stop: 09/11/20 05:59 Last Admin: 08/21/20 22:26 Dose: Not Given Documented by: Insulin Glargine (Insulin Glargine Solostar 100 Units/Ml 3 Ml Pen) 5 units SC BID [facility] Stop: 09/13/20 20:59 Last Admin: 08/21/20 22:27 Dose: 5 units Documented by: Lactobacillus Acidoph/Casei/Rhamnos (Advanced Probiotic 1250 Mg Capsule) 2 cap PO DAILY [facility] Stop: 09/21/20 08:59 Losartan Potassium (Losartan Potassium 50 Mg Tab) 50 mg PO HS [facility] Stop: 09/10/20 20:59 Last Admin: 08/21/20 21:58 Dose: 50 mg Documented by: Magnesium Oxide (Magnesium Oxide 400 Mg Tab) 400 mg PO BID [facility] Stop: 09/10/20 20:59 Last Admin: 08/22/20 08:03 Dose: 400 mg Documented by: Miscellaneous (Jardiance~Order Awaiting Action) 1 ea N/A QS [facility] Stop: 09/10/20 21:44 Last Admin: 08/22/20 07:58 Dose: Not Given Documented by: Miscellaneous (Carbohydrates For Hypoglycemia ) 15 - 30 gm PO UD PRN PRN Reason: Hypoglycemia Treatment Stop: 09/10/20 21:44 Miscellaneous Information (Vancomycin Consult Active) 1 ea N/A UD PRN PRN Reason: Consult Stop: 09/20/20 18:44 Miscellaneous Information (Piperacill/Tazobac Consult Active) 1 ea N/A UD PRN PRN Reason: Consult Stop: 09/21/20 08:25 Multivitamins/Folic Acid/Vitamin C (Multivitamin Chewable Tab) 1 tab PO PM [facility] Stop: 09/10/20 20:59 Last Admin: 08/21/20 21:58 Dose: 1 tab Documented by: Naloxone HCl (Naloxone Hcl 0.4 Mg/1 Ml Vial/Carp) 0.1 mg IV Q5M PRN PRN Reason: Oversedation/Resp Depression Stop: 09/11/20 16:29 Nystatin (Nystatin Powder 15gm Btl) 1 appln EXT BID [place] Stop: 09/11/20 20:59 Last Admin: 08/21/20 22:25 Dose: Not Given Documented by: Ondansetron HCl (Ondansetron Inj 2 Mg/Ml 2 Ml Vial) 4 mg IV Q6H PRN PRN Reason: Nausea Stop: 09/10/20 20:17 Last Admin: 08/16/20 13:11 Dose: 4 mg Documented by: Oxycodone HCl (Oxycodone Hcl Ir 5 Mg Tab (Immediate Release)) 5 - 10 mg PO Q4H PRN PRN Reason: Pain or Pre PT Stop: 08/26/20 16:29 Last Admin: 08/22/20 08:01 Dose: 5 mg Documented by: Polyethylene Glycol (Polyethylene (Miralax) 17 Gm Pack) 17 gm PO DAILY PRN PRN Reason: Constipation Stop: 09/10/20 20:17 Tamsulosin HCl (Tamsulosin Hcl 0.4 Mg Cap) 0.4 mg PO PM [place]IE Stop: 09/10/20 20:59 Last Admin: 08/21/20 21:58 Dose: 0.4 mg Documented by: Triamcinolone Acetonide (Triamcinolone Acet 0.1% Cr 15 Gm Tube) 1 appln TOP BID [facility] Stop: 09/10/20 20:59 Last Admin: 08/22/20 07:59 Dose: Not Given Documented by: Vitamin D (Cholecalciferol 1,000 Units 25 Mcg Tab) 2,000 units PO PM [facility] Stop: 09/10/20 20:59 Last Admin: 08/21/20 21:58 Dose: 2,000 units Documented by: Warfarin Sodium (Warfarin Sod 0.5 Mg Tab) 1.5 mg PO SuTuThSa@1600 [facility] Stop: 09/14/20 15:59 Last Admin: 08/15/20 17:31 Dose: 1.5 mg Documented by: Warfarin Sodium (Warfarin Sod 3 Mg Tab) 3 mg PO [id number]@1600 [facility] Stop: 09/13/20 15:59 Last Admin: 08/14/20 17:06 Dose: 3 mg Documented by:
[2020-08-22] MEDS ORDERED: PIPERACILLIN/TAZOBACTAM 4.5 GM in DEXTROSE 5% 100 ML IV ONE (08:30)
[2020-08-22] MEDS: INSULIN ASPART 100 UNITS/ML 3 ML PEN SC SCH ×4 (09:36→21:10)
[2020-08-22] MEDS: INSULIN GLARGINE SOLOSTAR 100 UNITS/ML 3 ML PEN SC SCH ×2 (09:37→21:09)
[2020-08-22] MEDS: NYSTATIN POWDER 15GM BTL EXT SCH ×2 (09:42→21:07)
[2020-08-22] MEDS: ADVANCED PROBIOTIC 1250 MG CAPSULE PO SCH (10:31)
[2020-08-22] MEDS: PIPERACILLIN/TAZOBACTAM 4.5 GM in DEXTROSE 5% 100 ML IV SCH ×2 (14:27→21:15)
[2020-08-22 19:23] LABS: INR 1.4 (0.9-1.1); Prothrombin Time 13.5 Seconds (9.0-12.0)
[2020-08-22 19:41] LABS: Partial Thromboplastin Ratio 1.1; Partial Thromboplastin Time 30.1 Seconds (21.0-31.0)
[2020-08-22] MEDS ORDERED: Nursing to Pharmacy Communication SCH (20:15)
[2020-08-22] MEDS: ASPIRIN 81 MG ECTAB PO SCH (21:05)
[2020-08-22] MEDS: CYANOCOBALAMIN 500 MCG TABLET (VITAMIN B-12) PO SCH (21:05)
[2020-08-22] MEDS: LOSARTAN POTASSIUM 50 MG TAB PO SCH (21:05)
[2020-08-22] MEDS: MULTIVITAMIN CHEWABLE TAB PO SCH (21:06)
[2020-08-22] MEDS: CHOLECALCIFEROL 1,000 UNITS 25 MCG TAB PO SCH (21:06)
[2020-08-22] MEDS: ATORVASTATIN 40 MG TAB PO SCH (21:07)
[2020-08-22] MEDS: TAMSULOSIN HCL 0.4 MG CAP PO SCH (21:07)
[2020-08-23] MEDS: oxyCODONE HCL IR 5 MG TAB (IMMEDIATE RELEASE) PO PRN ×3 (00:38→23:57)
[2020-08-23 02:17] LABS: Partial Thromboplastin Ratio 1.3; Partial Thromboplastin Time 35.3 Seconds (21.0-31.0)
[2020-08-23] MEDS ORDERED: Nursing to Pharmacy Communication SCH (02:30)
[2020-08-23] MEDS ORDERED: HEPARIN IV BOLUS 4,000 UNITS in SYRINGE 0 ML IV ONE (02:45)
[2020-08-23] MEDS: HEPARIN SODIUM/DEXTROSE 25,000 UNITS/500 ML BAG IV SCH ×2 (03:12→18:58)
[2020-08-23] MEDS: PIPERACILLIN/TAZOBACTAM 4.5 GM in DEXTROSE 5% 100 ML IV SCH (05:21)
[2020-08-23] MEDS ORDERED: VANCOMYCIN TROUGH ONE (06:30)
[2020-08-23] MEDS: VANCOMYCIN HCL 1,000 MG in SODIUM CHLORIDE 0.9% 250 ML IV SCH (06:36)
[2020-08-23 06:43] LABS: Basophils # (auto) 0.03 K/uL (0-0.2); Basophils % (auto) 0.6 %; Eosinophils # (auto) 0.17 K/uL (0-0.5); Eosinophils % (auto) 3.6 %; Hematocrit (blood only) 43.7 % (42-52); Hemoglobin 14.3 g/dL (14.0-18.0); Immature Granulocytes # (auto) 0.01 K/uL (0.00-0.02); Immature Granulocytes % (auto) 0.2 %; Lymphocytes # (auto) 1.17 K/uL (1.2-3.4); Lymphocytes % (auto) 24.6 %; Mean Corpuscular Hemoglobin 30.8 pg (25-34); Mean Corpuscular Hgb Conc 32.7 g/dL (32-36); Mean Platelet Volume 9.8 fL (7.4-10.4); Monocytes % (auto) 8.4 %; Neutrophils # (auto) 2.98 K/uL (1.4-6.5); Neutrophils % (auto) 62.6 %; Platelet Count 298 K/uL (130-400); RDW Coefficient of Variation 14.5 % (11.5-14.5); RDW Standard Deviation 49.5 fL (36.4-46.3); Red Blood Count 4.65 M/uL (4.7-6.1); White Blood Count 4.76 K/uL (4.8-10.8)
[2020-08-23 06:59] LABS: BUN Creatinine Ratio 13.7 (10-20); Calcium 8.6 mg/dl (8.5-10.1); Creatinine Clr Calc Pharmacy 62.8 ml/min; Creatinine Clr Calc Pharmacy 63.7 ml/min; Est GFR (African American) 56.9 ml/min; Est GFR (African American) 57.9 ml/min; Est GFR (Non-African American) 49.1 ml/min; Magnesium 2.1 mg/dl (1.8-2.4); Phosphorus 3.2 mg/dl (2.5-4.9); Potassium 4.2 mmol/L (3.5-5.1)
[2020-08-23 07:19] LABS: Partial Thromboplastin Ratio 2.1
[2020-08-23 07:28] LABS: Partial Thromboplastin Time 55.8 Seconds (21.0-31.0)
--- NOTE | 2020-08-23 07:42 | Hospitalist Progress Note ---
Date of Service August 23, 2020 Assessment & Plan (1) Necrotizing fasciitis: (2) Osteomyelitis of toe: (3) Ulcer of left great toe due to diabetes mellitus: (4) Cellulitis of right lower limb: (5) Leukocytosis: (6) Diabetic peripheral neuropathy associated with type 2 diabetes mellitus: (7) Venous insufficiency: (8) Peripheral arterial disease: (9) Hypertension: (10) Mixed sleep apnea: (11) CKD (chronic kidney disease), stage III: (12) Dyslipidemia: (13) Pacemaker: Right great toe osteomyelitis Necrotizing fasciitis S/P right great toe amputation on 08/12/2020 --[place] CT:Soft tissue gas present within the tissues surrounding the proximal distal phalanges of the great toe. The findings are consistent with a necrotizing fasciitis. Intramedullary gas involving the distal phalanx of the great toe and distal aspect of the proximal phalanx the great toe. This is an ancillary finding reported in osteomyelitis, and therefore osteomyelitis is strongly suspected. Surgical consultation recommended. Appreciate orthopedics input Blood Cx:No growth to date IV Dapto, Rocephin>>Transitioned to Doxy, Keflex Plan to continue antibiotics for 10 to 14-day course as recommended by Ortho ID consulted Need to follow-up with Dr. Weiss/ upon discharge Continue daily dressing Case management to help with discharge planning Needs SNF Placement when appropriate Now s/p debridement given demarcation of wound (08/21/20) w/ Dr. Weiss - osteomyelitis identified, and forefoot abscess Restart IV antibiotics, follow cultures from the OR Orthopedics following -Patient on IV vancomycin and Zosyn for broad coverage after notified by orthopedics with findings from OR -Now culture from OR shows E. coli and group B strep, will stop Vanco and Zosyn and will switch to Rocephin and Flagyl, await final cultures PAD - poor wound healing Obtained AKOSUA to assess circulation - Noncompressible peripheral arteries. Therefore AKOSUA's cannot be calculated. Follows w/ Dr. Castro (vascular) as outpatient, Dr. Castro consulted, arterial Doppler of right lower extremity ordered Right lower extremity arterial duplex with significant tibial disease and reduced toe pressure of 44 mmHg. Concerned current blood supply is inadequate to heal surgical wound. Patient is to undergo surgical debridement later today and is OK to do so from vascular standpoint. Feel he would benefit from right lower extremity angiogram with likely tibial intervention at some point to promote wound healing. This tentatively could be done Monday (08/24/20) if he is still inpatient. Otherwise can be arranged as an outpatient. JORGE - current Cr 1.4 -Possibly pre-renal, possibly secondary to combination of Vanco and Zosyn for osteomyelitis and abscess -will provide IV fluids, stop Vanco Zosyn -reviewed cultures, and discussed with pharmacy will start now Rocephin and Flagyl -repeat BMP in the afternoon UTI Urine Cx: E. coli Received Rocephin on Keflex as above DM II HbA1C:6.9 Hold Home regimen Continue Insulin therapy Monitor BGs Atrial fibrillation Rate control Continue Coumadin for anticoagulation Monitor INR: 1.8 Hold Coumadin given plan for debridement on Monday IV heparin, now on hold - restart 18-24 hrs after surgery H/O CVA Chronic right-sided numbness as per patient Continue aspirin, statin H/O CHF Chronic venous stasis insufficiency Continue home diuretics Monitor volume status CKD III Baseline creatinine 1.5-1.9 as per records Monitor renal function Avoid nephrotoxic agents as able DVT Px: Coumadin-held IV Heparin Code Status :Full code Disposition: likely SNF when appropriate Admission and Anticipated Discharge Date Admission Date: August 11, 2020 Subjective Patient is seen in follow-up of necrotizing fasciitis, osteomyelitis underwent debridement again 2days ago , identified with osteomyelitis and forefoot abscess States that he's feeling well, he is in no acute distress Denies any significant foot pain (history of neuropathy) Denies fever, chills, chest pain, shortness of breath, dizziness, nausea, abdominal pain Vascular (Dr. Castro) also consulted - poss. procedure planned for Monday Review of Systems Review of Systems: All systems reviewed & are unremarkable except as noted in HPI & below Constitutional: no fever and no chills Respiratory: no cough and no dyspnea Cardiovascular: no chest pain and no palpitations Gastrointestinal: no abdominal pain, no nausea and no vomiting Physical Exam Physical Exam: General Appearance: Moderately built and nourished, no apparent distress Head: normocephalic, Atraumatic Eyes: normal inspection, EOMI Neck: supple, Trachea midline Respiratory/Chest: Normal breath sounds, CTA Cardiovascular: S1, S2, No murmur Abdomen/GI:Soft, Non tender, Bowel sounds present Extremities/Musculoskeletal:normal inspection, B/L LE edema, Right Foot in dressing, drain removed Neurologic/Psych:AAOX3, grossly no focal neurological deficits Skin: normal color, warm Results & Data Results & Data ([facility]) Vital Signs (Past 12 Hours) Vital Signs Temp Pulse Pulse Resp BP Pulse Ox 08/22/20 22:18 36.9 C 71 16 108/70 95 08/22/20 21:01 76 104/70 Laboratory Results 08/23/20 08/23/20 08/23/20 Range/Units 06:24 06:24 06:24 WBC 4.76 L (4.8-10.8) K/uL RBC 4.65 L (4.7-6.1) M/uL Hgb 14.3 (14.0-18.0) g/dL Hct 43.7 (42-52) % MCV 94.0 (80-100) fL MCH 30.8 (25-34) pg MCHC 32.7 (32-36) g/dL RDW Std Deviation 49.5 H (36.4-46.3) fL RDW Coeff of Jason 14.5 (11.5-14.5) % Plt Count 298 (130-400) K/uL MPV 9.8 (7.4-10.4) fL Immature Gran % (Auto) 0.2 % Neut % (Auto) 62.6 % Lymph % (Auto) 24.6 % [place] % (Auto) 8.4 % Eos % (Auto) 3.6 % Baso % (Auto) 0.6 % Neut # (Auto) 2.98 (1.4-6.5) K/uL Lymph # (Auto) 1.17 L (1.2-3.4) K/uL [place] # (Auto) 0.40 (0.11-0.59) K/uL Eos # (Auto) 0.17 (0-0.5) K/uL Baso # (Auto) 0.03 (0-0.2) K/uL Immature Gran # (Auto) 0.01 (0.00-0.02) K/uL PT (9.0-12.0) Seconds INR (0.9-1.1) APTT (21.0-31.0) Seconds PTT Ratio Sodium 137 (136-145) mmol/L Potassium 4.2 (3.5-5.1) mmol/L Chloride 106 (98-107) mmol/L Carbon Dioxide 28 (21-32) mmol/L Anion Gap 3.0 (3-11) BUN 20 H (7-18) mg/dl Creatinine 1.45 H 1.43 H D (0.6-1.4) mg/dl Est Cr Clr Drug Dosing 62.8 63.7 ml/min Est GFR ( Amer) 56.9 57.9 ml/min Est GFR (Non-Af Amer) 49.1 50.0 ml/min BUN/Creatinine Ratio 13.7 (10-20) Glucose 93 (70-99) mg/dl POC Glucose (70-99) mg/dl Calcium 8.6 (8.5-10.1) mg/dl Phosphorus 3.2 (2.5-4.9) mg/dl Magnesium 2.1 (1.8-2.4) mg/dl Vancomycin Trough (See Comment) mcg/ml 08/23/20 08/23/20 08/23/20 Range/Units 06:24 06:24 01:49 WBC (4.8-10.8) K/uL RBC (4.7-6.1) M/uL Hgb (14.0-18.0) g/dL Hct (42-52) % MCV (80-100) fL MCH (25-34) pg MCHC (32-36) g/dL RDW Std Deviation (36.4-46.3) fL RDW Coeff of Jason (11.5-14.5) % Plt Count (130-400) K/uL MPV (7.4-10.4) fL Immature Gran % (Auto) % Neut % (Auto) % Lymph % (Auto) % [place] % (Auto) % Eos % (Auto) % Baso % (Auto) % Neut # (Auto) (1.4-6.5) K/uL Lymph # (Auto) (1.2-3.4) K/uL [place] # (Auto) (0.11-0.59) K/uL Eos # (Auto) (0-0.5) K/uL Baso # (Auto) (0-0.2) K/uL Immature Gran # (Auto) (0.00-0.02) K/uL PT (9.0-12.0) Seconds INR (0.9-1.1) APTT 55.8 H* 35.3 H (21.0-31.0) Seconds PTT Ratio 2.1 1.3 Sodium (136-145) mmol/L Potassium (3.5-5.1) mmol/L Chloride (98-107) mmol/L Carbon Dioxide (21-32) mmol/L Anion Gap (3-11) BUN (7-18) mg/dl Creatinine (0.6-1.4) mg/dl Est Cr Clr Drug Dosing ml/min Est GFR ( Amer) ml/min Est GFR (Non-Af Amer) ml/min BUN/Creatinine Ratio (10-20) Glucose (70-99) mg/dl POC Glucose (70-99) mg/dl Calcium (8.5-10.1) mg/dl Phosphorus (2.5-4.9) mg/dl Magnesium (1.8-2.4) mg/dl Vancomycin Trough 22.4 (See Comment) mcg/ml 08/22/20 08/22/20 08/22/20 Range/Units 21:05 18:55 17:02 WBC (4.8-10.8) K/uL RBC (4.7-6.1) M/uL Hgb (14.0-18.0) g/dL Hct (42-52) % MCV (80-100) fL MCH (25-34) pg MCHC (32-36) g/dL RDW Std Deviation (36.4-46.3) fL RDW Coeff of Jason (11.5-14.5) % Plt Count (130-400) K/uL MPV (7.4-10.4) fL Immature Gran % (Auto) % Neut % (Auto) % Lymph % (Auto) % [place] % (Auto) % Eos % (Auto) % Baso % (Auto) % Neut # (Auto) (1.4-6.5) K/uL Lymph # (Auto) (1.2-3.4) K/uL [place] # (Auto) (0.11-0.59) K/uL Eos # (Auto) (0-0.5) K/uL Baso # (Auto) (0-0.2) K/uL Immature Gran # (Auto) (0.00-0.02) K/uL PT 13.5 H (9.0-12.0) Seconds INR 1.4 H (0.9-1.1) APTT 30.1 (21.0-31.0) Seconds PTT Ratio 1.1 Sodium (136-145) mmol/L Potassium (3.5-5.1) mmol/L Chloride (98-107) mmol/L Carbon Dioxide (21-32) mmol/L Anion Gap (3-11) BUN (7-18) mg/dl Creatinine (0.6-1.4) mg/dl Est Cr Clr Drug Dosing ml/min Est GFR ( Amer) ml/min Est GFR (Non-Af Amer) ml/min BUN/Creatinine Ratio (10-20) Glucose (70-99) mg/dl POC Glucose 119 H 89 (70-99) mg/dl Calcium (8.5-10.1) mg/dl Phosphorus (2.5-4.9) mg/dl Magnesium (1.8-2.4) mg/dl Vancomycin Trough (See Comment) mcg/ml 08/22/20 08/22/20 Range/Units 12:12 08:00 WBC (4.8-10.8) K/uL RBC (4.7-6.1) M/uL Hgb (14.0-18.0) g/dL Hct (42-52) % MCV (80-100) fL MCH (25-34) pg MCHC (32-36) g/dL RDW Std Deviation (36.4-46.3) fL RDW Coeff of Jason (11.5-14.5) % Plt Count (130-400) K/uL MPV (7.4-10.4) fL Immature Gran % (Auto) % Neut % (Auto) % Lymph % (Auto) % [place] % (Auto) % Eos % (Auto) % Baso % (Auto) % Neut # (Auto) (1.4-6.5) K/uL Lymph # (Auto) (1.2-3.4) K/uL [place] # (Auto) (0.11-0.59) K/uL Eos # (Auto) (0-0.5) K/uL Baso # (Auto) (0-0.2) K/uL Immature Gran # (Auto) (0.00-0.02) K/uL PT (9.0-12.0) Seconds INR (0.9-1.1) APTT (21.0-31.0) Seconds PTT Ratio Sodium (136-145) mmol/L Potassium (3.5-5.1) mmol/L Chloride (98-107) mmol/L Carbon Dioxide (21-32) mmol/L Anion Gap (3-11) BUN (7-18) mg/dl Creatinine (0.6-1.4) mg/dl Est Cr Clr Drug Dosing ml/min Est GFR ( Amer) ml/min Est GFR (Non-Af Amer) ml/min BUN/Creatinine Ratio (10-20) Glucose (70-99) mg/dl POC Glucose 131 H 86 (70-99) mg/dl Calcium (8.5-10.1) mg/dl Phosphorus (2.5-4.9) mg/dl Magnesium (1.8-2.4) mg/dl Vancomycin Trough (See Comment) mcg/ml Medications Administered Current Inpatient Medications Acetaminophen (Acetaminophen 325 Mg Tab) 650 mg PO Q4H PRN PRN Reason: pain/fever Stop: 09/10/20 20:17 Last Admin: 08/17/20 08:12 Dose: 650 mg Documented by: Aspirin (Aspirin 81 Mg Ectab) 81 mg PO QPM COOKIE Stop: 09/10/20 20:59 Last Admin: 08/22/20 21:05 Dose: 81 mg Documented by: Atorvastatin Calcium (Atorvastatin 40 Mg Tab) 40 mg PO PM COOKIE Stop: 09/10/20 20:59 Last Admin: 08/22/20 21:07 Dose: 40 mg Documented by: Betamethasone Dipropion Augmented (Betamethasone Dip Aug 0.05% Oint 15 Gm Tube) 1 appln EXT DAILY PRN PRN Reason: Dry Skin Stop: 09/10/20 20:17 Cyanocobalamin (Cyanocobalamin 500 Mcg Tablet (Vitamin B-12)) 1,000 mcg PO PM COOKIE Stop: 09/10/20 20:59 Last Admin: 08/22/20 21:05 Dose: 1,000 mcg Documented by: Dextrose (Dextrose 50% 50 Ml Syringe) 25 - 50 ml IV UD PRN; Protocol PRN Reason: Hypoglycemia Protocol Stop: 09/10/20 21:44 Docusate Sodium (Docusate Sodium 100 Mg Cap) 100 mg PO BID [facility] Stop: 09/11/20 20:59 Last Admin: 08/22/20 21:06 Dose: Not Given Documented by: Furosemide (Furosemide 20 Mg Tab) 20 mg PO MoWeFr@0900 COOKIE Stop: 09/11/20 08:59 Last Admin: 08/21/20 09:26 Dose: Not Given Documented by: Furosemide (Furosemide 40 Mg Tab) 40 mg PO SuTuThSa@0900 [facility] Stop: 09/12/20 08:59 Last Admin: 08/22/20 08:03 Dose: 40 mg Documented by: Glucagon (Glucagon For Inj 1 Mg Vial) 1 mg IM UD PRN; Protocol PRN Reason: Hypoglycemia Protocol Stop: 09/10/20 21:44 Glucose (Glucose 40% Gel 15 Gm Tube) 15 - 30 gm PO UD PRN; Protocol PRN Reason: Hypoglycemia Protocol Stop: 09/10/20 21:44 Glucose (Glucose 10 Tabs/Tube) 4 - 8 tabs PO UD PRN; Protocol PRN Reason: Hypoglycemia Protocol Stop: 09/10/20 21:44 Hydromorphone HCl (Hydromorphone Inj 0.5 Mg/0.5 Ml Syr) 0.5 mg IV Q4H PRN PRN Reason: Pain or Pre PT Stop: 08/26/20 16:29 Heparin Sodium/Dextrose (Heparin Sodium/Dextrose) 25,000 units in 500 mls @ 24 mls/hr IV .[id number] [facility]; Protocol Stop: 09/17/20 15:29 Last Titration: 08/23/20 07:24 Dose: 1,200 units/hr, 24 mls/hr Documented by: Vancomycin HCl 1,000 mg/ (Sodium Chloride) 270 mls @ 200 mls/hr IV Q12H [facility]; Protocol Stop: 10/03/20 06:59 Last Admin: 08/23/20 06:36 Dose: 200 mls/hr Documented by: Piperacillin Sod/Tazobactam (Sod 4.5 gm/ Dextrose) 120 mls @ 30 mls/hr IV Q8H [facility]; Protocol Stop: 10/03/20 13:59 Last Admin: 08/23/20 05:21 Dose: 30 mls/hr Documented by: Sodium Chloride (Nss 1000ml) 1,000 mls @ 100 mls/hr IV .Q10H COOKIE Stop: 09/22/20 07:44 Insulin Aspart (Insulin Aspart 100 Units/Ml 3 Ml Pen) 0 units SC ACHS COOKIE Stop: 09/11/20 05:59 Last Admin: 08/22/20 21:10 Dose: Not Given Documented by: Insulin Glargine (Insulin Glargine Solostar 100 Units/Ml 3 Ml Pen) 5 units SC BID COOKIE Stop: 09/13/20 20:59 Last Admin: 08/22/20 21:09 Dose: 5 units Documented by: Lactobacillus Acidoph/Casei/Rhamnos (Advanced Probiotic 1250 Mg Capsule) 2 cap PO DAILY COOKIE Stop: 09/21/20 08:59 Last Admin: 08/22/20 10:31 Dose: 2 cap Documented by: Losartan Potassium (Losartan Potassium 50 Mg Tab) 50 mg PO HS COOKIE Stop: 09/10/20 20:59 Last Admin: 08/22/20 21:05 Dose: 50 mg Documented by: Magnesium Oxide (Magnesium Oxide 400 Mg Tab) 400 mg PO BID COOKIE Stop: 09/10/20 20:59 Last Admin: 08/22/20 21:06 Dose: 400 mg Documented by: Miscellaneous (Jardiance~Order Awaiting Action) 1 ea N/A QS [facility] Stop: 09/10/20 21:44 Last Admin: 08/22/20 21:56 Dose: Not Given Documented by: Miscellaneous (Carbohydrates For Hypoglycemia ) 15 - 30 gm PO UD PRN PRN Reason: Hypoglycemia Treatment Stop: 09/10/20 21:44 Miscellaneous Information (Vancomycin Consult Active) 1 ea N/A UD PRN PRN Reason: Consult Stop: 09/20/20 18:44 Miscellaneous Information (Piperacill/Tazobac Consult Active) 1 ea N/A UD PRN PRN Reason: Consult Stop: 09/21/20 08:25 Multivitamins/Folic Acid/Vitamin C (Multivitamin Chewable Tab) 1 tab PO PM COOKIE Stop: 09/10/20 20:59 Last Admin: 08/22/20 21:06 Dose: 1 tab Documented by: Naloxone HCl (Naloxone Hcl 0.4 Mg/1 Ml Vial/Carp) 0.1 mg IV Q5M PRN PRN Reason: Oversedation/Resp Depression Stop: 09/11/20 16:29 Nystatin (Nystatin Powder 15gm Btl) 1 appln EXT BID [facility] Stop: 09/11/20 20:59 Last Admin: 08/22/20 21:07 Dose: Not Given Documented by: Ondansetron HCl (Ondansetron Inj 2 Mg/Ml 2 Ml Vial) 4 mg IV Q6H PRN PRN Reason: Nausea Stop: 09/10/20 20:17 Last Admin: 08/16/20 13:11 Dose: 4 mg Documented by: Oxycodone HCl (Oxycodone Hcl Ir 5 Mg Tab (Immediate Release)) 5 - 10 mg PO Q4H PRN PRN Reason: Pain or Pre PT Stop: 08/26/20 16:29 Last Admin: 08/23/20 05:41 Dose: 10 mg Documented by: Polyethylene Glycol (Polyethylene (Miralax) 17 Gm Pack) 17 gm PO DAILY PRN PRN Reason: Constipation Stop: 09/10/20 20:17 Tamsulosin HCl (Tamsulosin Hcl 0.4 Mg Cap) 0.4 mg PO PM [facility] Stop: 09/10/20 20:59 Last Admin: 08/22/20 21:07 Dose: 0.4 mg Documented by: Triamcinolone Acetonide (Triamcinolone Acet 0.1% Cr 15 Gm Tube) 1 appln TOP BID [facility] Stop: 09/10/20 20:59 Last Admin: 08/22/20 21:07 Dose: Not Given Documented by: Vitamin D (Cholecalciferol 1,000 Units 25 Mcg Tab) 2,000 units PO PM [facility] Stop: 09/10/20 20:59 Last Admin: 08/22/20 21:06 Dose: 2,000 units Documented by: Warfarin Sodium (Warfarin Sod 0.5 Mg Tab) 1.5 mg PO SuTuThSa@1600 [facility] Stop: 09/14/20 15:59 Last Admin: 08/15/20 17:31 Dose: 1.5 mg Documented by: Warfarin Sodium (Warfarin Sod 3 Mg Tab) 3 mg PO MoWeFr@1600 [facility] Stop: 09/13/20 15:59 Last Admin: 08/14/20 17:06 Dose: 3 mg Documented by:
--- NOTE | 2020-08-23 08:44 | Orthopedic Progress Note ---
Date of Service August 23, 2020 Assessment & Plan (1) Osteomyelitis of toe: POD#2 1. Right great toe irrigation and debridement including skin, subcutaneous tissue and fascia. 2. Resection of suppurative flexor hallucis longus tendon. 3. Revision amputation, right great toe. 4. Incision and drainage of abscess, right forefoot. Dressing changed today. Daily dressing changes. Patient will require 2 weeks IV antibiotics and another 4 weeks of oral antibiotic after. He is scheduled for an giogram on Monday. NWB RLE. Cultures growing gram negative bacilli, grams stain with few ploys, no organisms. Minimal drainage from hemovac, drain pulled. Will follow Admission and Anticipated Discharge Date Admission Date: August 11, 2020 Supervising Physician Co-Signing Physician Notes Agree with above assessment and plan. Subjective POD#2. Patient resting in bed comfortably. Had some pain into foot but otherwise no complaints. Denies chest pain, sob, dizziness, n/v/d, fever, chills. Review of Systems Review of Systems: All systems reviewed & are unremarkable except as noted in HPI & below Constitutional: as per Subjective / HPI Physical Exam Physical Exam: Right foot dressing is c/d/i, no calf tenderness. Hemovac in place minimal drainage. Dressing was removed and hemovac pulled. Incision is in tact with well approximated skin edges, minimal bloody drainage, mild bloody drainage from drain site. Mild ecchymosis, no erythema. No calf tenderness. New soft dressing applied-adaptic, 4x4s, ABD, Kerlix, BREANNA. Constitutional: well developed and well nourished; no acute distress Results & Data ([facility]) Vital Signs (Past 12 Hours) Vital Signs Temp Pulse Pulse Resp BP Pulse Ox 08/23/20 07:46 36.4 C L 61 16 101/65 95 08/22/20 22:18 36.9 C 71 16 108/70 95 08/22/20 21:01 76 104/70
[2020-08-23] MEDS: DOCUSATE SODIUM 100 MG CAP PO SCH ×3 (08:57→20:59)
[2020-08-23] MEDS: ADVANCED PROBIOTIC 1250 MG CAPSULE PO SCH (08:57)
[2020-08-23] MEDS: FUROSEMIDE 40 MG TAB PO SCH (08:57)
[2020-08-23] MEDS: MAGNESIUM OXIDE 400 MG TAB PO SCH ×2 (08:57→21:01)
[2020-08-23] MEDS: INSULIN GLARGINE SOLOSTAR 100 UNITS/ML 3 ML PEN SC SCH ×2 (08:58→21:00)
[2020-08-23] MEDS: SODIUM CHLORIDE 0.9% 1000ML 1,000 ML IV SCH ×3 (08:59→22:08)
[2020-08-23] MEDS: INSULIN ASPART 100 UNITS/ML 3 ML PEN SC SCH ×4 (09:01→21:00)
[2020-08-23] MEDS: NYSTATIN POWDER 15GM BTL EXT SCH ×2 (09:02→20:55)
[2020-08-23] MEDS: TRIAMCINOLONE ACET 0.1% CR 15 GM TUBE TOP SCH ×2 (09:06→20:56)
[2020-08-23] MEDS: cefTRIAXone SODIUM 2,000 MG in DEXTROSE 5% 50 ML IV SCH (11:45)
[2020-08-23] MEDS: metroNIDAZOLE 500 MG/100 ML BAG IV SCH ×2 (14:52→21:06)
[2020-08-23 16:10] LABS: BUN Creatinine Ratio 14.5 (10-20); Calcium 8.5 mg/dl (8.5-10.1); Creatinine Clr Calc Pharmacy 61.1 ml/min; Est GFR (African American) 55.1 ml/min; Est GFR (Non-African American) 47.5 ml/min; Potassium 4.3 mmol/L (3.5-5.1)
[2020-08-23] MEDS ORDERED: SODIUM CHLORIDE 0.9% 1000ML 500 ML IV ONE (17:06)
[2020-08-23] MEDS: CYANOCOBALAMIN 500 MCG TABLET (VITAMIN B-12) PO SCH (20:54)
[2020-08-23] MEDS: ASPIRIN 81 MG ECTAB PO SCH (20:54)
[2020-08-23] MEDS: TAMSULOSIN HCL 0.4 MG CAP PO SCH (21:01)
[2020-08-23] MEDS: MULTIVITAMIN CHEWABLE TAB PO SCH (21:01)
[2020-08-23] MEDS: LOSARTAN POTASSIUM 50 MG TAB PO SCH (21:01)
[2020-08-23] MEDS: CHOLECALCIFEROL 1,000 UNITS 25 MCG TAB PO SCH (21:02)
[2020-08-23] MEDS: ATORVASTATIN 40 MG TAB PO SCH (21:02)
[2020-08-24] MEDS: SODIUM CHLORIDE 0.9% 1000ML 1,000 ML IV SCH (05:36)
[2020-08-24] MEDS: metroNIDAZOLE 500 MG/100 ML BAG IV SCH ×3 (05:36→21:43)
[2020-08-24 05:53] LABS: Hemoglobin 13.4 g/dL (14.0-18.0); Mean Corpuscular Hgb Conc 32.7 g/dL (32-36); Mean Corpuscular Volume 91.9 fL (80-100); Mean Platelet Volume 9.7 fL (7.4-10.4); Platelet Count 274 K/uL (130-400); RDW Coefficient of Variation 14.4 % (11.5-14.5); Red Blood Count 4.46 M/uL (4.7-6.1); White Blood Count 4.15 K/uL (4.8-10.8)
[2020-08-24 06:10] LABS: INR 1.3 (0.9-1.1); Partial Thromboplastin Ratio 1.7; Partial Thromboplastin Time 44.7 Seconds (21.0-31.0); Prothrombin Time 12.5 Seconds (9.0-12.0)
[2020-08-24 06:16] LABS: Calcium 8.1 mg/dl (8.5-10.1); Est GFR (African American) 69.5 ml/min; Est GFR (Non-African American) 59.9 ml/min; Potassium 4.2 mmol/L (3.5-5.1)
[2020-08-24] MEDS ORDERED: Nursing to Pharmacy Communication SCH ×2 (07:00→23:45)
[2020-08-24] MEDS: INSULIN ASPART 100 UNITS/ML 3 ML PEN SC SCH ×3 (07:02→18:25)
[2020-08-24] MEDS ORDERED: niCARdipine HCL INJ 2.5 MG/ML 10 ML AMP ONE (07:11)
[2020-08-24] MEDS ORDERED: HEPARIN (PORCINE) 1000 UNIT/ML 10 ML (CATH LAB USE ONLY) ONE ×2 (07:11→09:20)
[2020-08-24] MEDS ORDERED: MIDAZOLAM HCL 5 MG/ML 1 ML VIAL ONE (07:11)
[2020-08-24] MEDS ORDERED: fentaNYL citrate 100 MCG/2 ML VIAL ONE ×3 (07:11→11:28)
[2020-08-24] MEDS ORDERED: NITROGLYCERIN/D5W 100MCG/ML 20ML SYR ONE ×2 (07:13→11:21)
--- NOTE | 2020-08-24 07:26 | Vascular Medicine ProgressNote ---
Date of Service August 24, 2020 Assessment & Plan (1) Peripheral arterial disease: 2. RT great toe osteomyelitis post amputation and revision. 3. Chronic venous insufficiency 4. Type 2 diabetes 5. Dyslipidemia 6. Atrial fibrillation on Coumadin Plan for RLE angiogram and likely tibial intervention today. Discussed procedure, risks/benefits with patient and he is willing to proceed. Admission and Anticipated Discharge Date Admission Date: August 11, 2020 Subjective Feeling well this morning. No RT foot pain. No issues over weekend. SCr down from 1.5 to 1.2 after IV fluids yesterday. Review of Systems Review of Systems: All systems reviewed & are unremarkable except as noted in HPI & below Physical Exam Physical Exam: General: No acute distress, comfortable. HEENT: Sclerae anicteric. Lungs: Clear to auscultation bilaterally Cardiac: Regular rate and rhythm. Extremities/vascular: --lower extremities chronic venous stasis to the shins bilaterally --Radial 2+ bilaterally --Pedal pulses difficult to palpate but all present on doppler --RT foot dressed. normal cap refill in 3-5 toes. Psychiatric: Affect appropriate. Alert and oriented. Results & Data ([facility]) Vital Signs (Past 12 Hours) Vital Signs Temp Pulse Resp BP Pulse Ox 08/23/20 22:09 98.6 F 60 16 110/61 95 PG Care Time/CCT Total # of Minutes Spent Total Time Spent with Patient: Total time spent is greater than 50% in coordination of care (as documented) at patient's floor/unit and/or counseling patient: Coding Level of Care Code 56168 Subseq Hosp Care Lvl 3 Diagnoses Peripheral arterial disease I73.9
--- NOTE | 2020-08-24 07:30 | Pre Anesthesia Assessment ---
Date of Service August 24, 2020 Pre Sedation Assessment Vital Signs Temp Pulse Resp BP BP Pulse Ox 08/23/20 22:09 98.6 F 60 16 110/61 95 08/23/20 14:50 97.7 F 59 L 16 103/66 96 08/23/20 07:46 97.5 F L 61 16 101/65 95 Cardiovascular RRR, no murmur, no edema Respiratory normal respiratory effort, lungs clear to auscultation Pre-Sedation Airway Assessment Smoking Status: Never smoker Hx Sleep Apnea: No Hx Difficult Intubation: No Short, Thick Neck: No Thyromental Distance: > or= 3.5 Finger Breadths Oral Cavity: + WNL Mallampati Class: III ASA: ASA3 Procedure Planning Contraindications for Sedation: none Current Medications Reviewed: Yes Notes The planned sedation has been discussed with the patient. Informed Consent was obtained. I have identified the patient, determined the appropriateness of sedation and have assessed the patient immediately prior to the procedure. All medicine(s) and interventions are by my order.
--- NOTE | 2020-08-24 07:35 | Hospitalist Progress Note ---
Date of Service August 24, 2020 Assessment & Plan (1) Necrotizing fasciitis: (2) Osteomyelitis of toe: (3) Ulcer of left great toe due to diabetes mellitus: (4) Cellulitis of right lower limb: (5) Leukocytosis: (6) Diabetic peripheral neuropathy associated with type 2 diabetes mellitus: (7) Venous insufficiency: (8) Peripheral arterial disease: (9) Hypertension: (10) Mixed sleep apnea: (11) CKD (chronic kidney disease), stage III: (12) Dyslipidemia: (13) Pacemaker: Right great toe osteomyelitis Necrotizing fasciitis S/P right great toe amputation on 08/12/2020 --[place]gg[place] CT:Soft tissue gas present within the tissues surrounding the proximal distal phalanges of the great toe. The findings are consistent with a necrotizing fasciitis. Intramedullary gas involving the distal phalanx of the great toe and distal aspect of the proximal phalanx the great toe. This is an ancillary finding reported in osteomyelitis, and therefore osteomyelitis is strongly suspected. Surgical consultation recommended. Appreciate orthopedics input Blood Cx:No growth to date IV Dapto, Rocephin>>Transitioned to PO Doxy, Keflex Plan was to continue antibiotics for 10 to 14-day course as recommended by Ortho ID consulted Need to follow-up with Dr. Weiss/ upon discharge Continue daily dressing Case management to help with discharge planning Needs SNF Placement / or home health when appropriate Now s/p debridement given demarcation of wound (08/21/20) w/ Dr. Weiss - osteomyelitis identified, and forefoot abscess Restart IV antibiotics, follow cultures from the OR Orthopedics following -Patient on IV vancomycin and Zosyn for broad coverage after notified by orthopedics with findings from OR -Now culture from OR shows E. coli and group B strep, stopped Vanco and Zosyn and switched to Rocephin and Flagyl, await final cultures PAD - poor wound healing Obtained AKOSUA to assess circulation - Noncompressible peripheral arteries. Therefore AKOSUA's cannot be calculated. Follows w/ Dr. Castro (vascular) as outpatient, Dr. Castro consulted, arterial Doppler of right lower extremity ordered Right lower extremity arterial duplex with significant tibial disease and reduced toe pressure of 44 mmHg. Concerned current blood supply is inadequate to heal surgical wound. Patient is to undergo surgical debridement later today and is OK to do so from vascular standpoint. Feel he would benefit from right lower extremity angiogram with likely tibial intervention at some point to promote wound healing. This tentatively could be done Monday (08/24/20) if he is still inpatient. Otherwise can be arranged as an outpatient. 08/24/2020 Actual Procedures p Ultrasound Vascular Access - Roger Castro MD s Angio Extremity Unilateral - Roger Castro MD s Tibioper Balloon Stent Each Additional - Roger Castro MD s Tibioperoneal Balloon Stent - Roger Castro MD Summary: 1. Right lower extremity --widely patent iliacs to popliteal. Severe heavily calcified disease involving proximal EVELINE, TPT and peroneal arteries. 2. 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 3. Successful bifurcation stenting of heavily calcified anterior tibial, tibioperoneal trunk with 3 drug-eluting stents (3.5 x 38 mm Jacques in EVELINE, 4.0 x 30 + 3.5 x 26 mm [place] overlapping from popliteal into MOLDING LINE OPERATOR). 4. Successful angioplasty of proximal peroneal with 2.5 balloon. Final result: Brisk right lower extremity two-vessel runoff into the foot. Recommendations: Continue DAPT with ASA/Clopidogrel for 3 months Follow-up non-invasive vascular testing in 2 weeks. JORGE on CKD III Baseline creatinine 1.5-1.9 as per records, however Cr has been lower while inpt - then incr. Cr 1.4 (08/23) -Possibly pre-renal, possibly secondary to combination of Vanco and Zosyn for osteomyelitis and abscess -provided IV fluids, stopped Vanco Zosyn -reviewed cultures, and discussed with pharmacy, started on Rocephin and Flagyl - Cr improved to 1.2 (08/24) - cont. to monitor BMP UTI Urine Cx: E. coli Received Rocephin on Keflex as above DM II HbA1C:6.9 Hold Home regimen Continue Insulin therapy Monitor BGs Atrial fibrillation Rate control Continue Coumadin for anticoagulation Monitor INR: 1.8 Hold Coumadin given plan for debridement on Monday IV heparin, now on hold - restart 18-24 hrs after surgery Discussed with Dr. Castro, after his procedure on August 24, recommend to restart warfarin in the evening, no need for more IV heparin bridging H/O CVA Chronic right-sided numbness as per patient Continue aspirin, statin H/O CHF Chronic venous stasis insufficiency Continue home diuretics Monitor volume status DVT Px: Coumadin- restarted IV Heparin - now stopped (after endovasc. procedure) Code Status :Full code Disposition: PT/OT ordered, poss. home w/HH vs. SNF when appropriate Admission and Anticipated Discharge Date Admission Date: August 11, 2020 Subjective Patient is seen in follow-up of necrotizing fasciitis, osteomyelitis, PAD underwent debridement again , identified with osteomyelitis and forefoot abscess Denies any significant foot pain (history of neuropathy) Denies fever, chills, chest pain, shortness of breath, dizziness, abdominal pain Vascular (Dr. Castro) also consulted - pt underwent procedure today Now pt feels sleepy and little nauseous but has no other complaints Review of Systems Review of Systems: All systems reviewed & are unremarkable except as noted in HPI & below Constitutional: no fever and no chills Respiratory: no cough and no dyspnea Cardiovascular: no chest pain and no palpitations Gastrointestinal: + nausea; no abdominal pain and no vomiting Physical Exam Physical Exam: General Appearance: Moderately built and nourished, no apparent distress Head: normocephalic, Atraumatic Eyes: normal inspection, EOMI Neck: supple, Trachea midline Respiratory/Chest: Normal breath sounds, CTA Cardiovascular: S1, S2, No murmur Abdomen/GI:Soft, Non tender, Bowel sounds present Extremities/Musculoskeletal:normal inspection, B/L LE edema, Right Foot in dressing, drain removed Neurologic/Psych:AAOX3, grossly no focal neurological deficits Skin: normal color, warm Results & Data Results & Data ([facility]) Vital Signs (Past 12 Hours) Vital Signs Temp Pulse Resp BP Pulse Ox 08/23/20 22:09 37.0 C 60 16 110/61 95 Laboratory Results 08/24/20 08/24/20 08/24/20 Range/Units 06:53 05:32 05:32 WBC 4.15 L (4.8-10.8) K/uL RBC 4.46 L (4.7-6.1) M/uL Hgb 13.4 L (14.0-18.0) g/dL Hct 41.0 L (42-52) % MCV 91.9 (80-100) fL MCH 30.0 (25-34) pg MCHC 32.7 (32-36) g/dL RDW Std Deviation 49.0 H (36.4-46.3) fL RDW Coeff of Jason 14.4 (11.5-14.5) % Plt Count 274 (130-400) K/uL MPV 9.7 (7.4-10.4) fL PT (9.0-12.0) Seconds INR (0.9-1.1) APTT (21.0-31.0) Seconds PTT Ratio Sodium 139 (136-145) mmol/L Potassium 4.2 (3.5-5.1) mmol/L Chloride 108 H (98-107) mmol/L Carbon Dioxide 31 (21-32) mmol/L Anion Gap 0 L (3-11) BUN 20 H (7-18) mg/dl Creatinine 1.23 (0.6-1.4) mg/dl Est Cr Clr Drug Dosing 74.0 ml/min Est GFR ( Amer) 69.5 ml/min Est GFR (Non-Af Amer) 59.9 ml/min BUN/Creatinine Ratio 16.0 (10-20) Glucose 88 (70-99) mg/dl POC Glucose 81 (70-99) mg/dl Calcium 8.1 L (8.5-10.1) mg/dl 08/24/20 08/23/20 08/23/20 Range/Units 05:32 20:53 17:16 WBC (4.8-10.8) K/uL RBC (4.7-6.1) M/uL Hgb (14.0-18.0) g/dL Hct (42-52) % MCV (80-100) fL MCH (25-34) pg MCHC (32-36) g/dL RDW Std Deviation (36.4-46.3) fL RDW Coeff of Jason (11.5-14.5) % Plt Count (130-400) K/uL MPV (7.4-10.4) fL PT 12.5 H (9.0-12.0) Seconds INR 1.3 H (0.9-1.1) APTT 44.7 H (21.0-31.0) Seconds PTT Ratio 1.7 Sodium (136-145) mmol/L Potassium (3.5-5.1) mmol/L Chloride (98-107) mmol/L Carbon Dioxide (21-32) mmol/L Anion Gap (3-11) BUN (7-18) mg/dl Creatinine (0.6-1.4) mg/dl Est Cr Clr Drug Dosing ml/min Est GFR ( Amer) ml/min Est GFR (Non-Af Amer) ml/min BUN/Creatinine Ratio (10-20) Glucose (70-99) mg/dl POC Glucose 101 H 90 (70-99) mg/dl Calcium (8.5-10.1) mg/dl 08/23/20 08/23/20 08/23/20 Range/Units 15:43 12:07 08:08 WBC (4.8-10.8) K/uL RBC (4.7-6.1) M/uL Hgb (14.0-18.0) g/dL Hct (42-52) % MCV (80-100) fL MCH (25-34) pg MCHC (32-36) g/dL RDW Std Deviation (36.4-46.3) fL RDW Coeff of Jason (11.5-14.5) % Plt Count (130-400) K/uL MPV (7.4-10.4) fL PT (9.0-12.0) Seconds INR (0.9-1.1) APTT (21.0-31.0) Seconds PTT Ratio Sodium 138 (136-145) mmol/L Potassium 4.3 (3.5-5.1) mmol/L Chloride 105 (98-107) mmol/L Carbon Dioxide 28 (21-32) mmol/L Anion Gap 6.0 (3-11) BUN 22 H (7-18) mg/dl Creatinine 1.49 H (0.6-1.4) mg/dl Est Cr Clr Drug Dosing 61.1 ml/min Est GFR ( Amer) 55.1 ml/min Est GFR (Non-Af Amer) 47.5 ml/min BUN/Creatinine Ratio 14.5 (10-20) Glucose 92 (70-99) mg/dl POC Glucose 137 H 80 (70-99) mg/dl Calcium 8.5 (8.5-10.1) mg/dl Medications Administered Current Inpatient Medications Acetaminophen (Acetaminophen 325 Mg Tab) 650 mg PO Q4H PRN PRN Reason: pain/fever Stop: 09/10/20 20:17 Last Admin: 08/17/20 08:12 Dose: 650 mg Documented by: Aspirin (Aspirin 81 Mg Ectab) 81 mg PO QPM [facility] Stop: 09/10/20 20:59 Last Admin: 08/23/20 20:54 Dose: 81 mg Documented by: Atorvastatin Calcium (Atorvastatin 40 Mg Tab) 40 mg PO PM [facility] Stop: 09/10/20 20:59 Last Admin: 08/23/20 21:02 Dose: 40 mg Documented by: Betamethasone Dipropion Augmented (Betamethasone Dip Aug 0.05% Oint 15 Gm Tube) 1 appln EXT DAILY PRN PRN Reason: Dry Skin Stop: 09/10/20 20:17 Cyanocobalamin (Cyanocobalamin 500 Mcg Tablet (Vitamin B-12)) 1,000 mcg PO PM [facility] Stop: 09/10/20 20:59 Last Admin: 08/23/20 20:54 Dose: 1,000 mcg Documented by: Dextrose (Dextrose 50% 50 Ml Syringe) 25 - 50 ml IV UD PRN; Protocol PRN Reason: Hypoglycemia Protocol Stop: 09/10/20 21:44 Docusate Sodium (Docusate Sodium 100 Mg Cap) 100 mg PO BID [facility] Stop: 09/11/20 20:59 Last Admin: 08/23/20 20:59 Dose: Not Given Documented by: Furosemide (Furosemide 20 Mg Tab) 20 mg PO MoWeFr@0900 [facility] Stop: 09/11/20 08:59 Last Admin: 08/21/20 09:26 Dose: Not Given Documented by: Furosemide (Furosemide 40 Mg Tab) 40 mg PO SuTuThSa@0900 [facility] Stop: 09/12/20 08:59 Last Admin: 08/23/20 08:57 Dose: 40 mg Documented by: Glucagon (Glucagon For Inj 1 Mg Vial) 1 mg IM UD PRN; Protocol PRN Reason: Hypoglycemia Protocol Stop: 09/10/20 21:44 Glucose (Glucose 40% Gel 15 Gm Tube) 15 - 30 gm PO UD PRN; Protocol PRN Reason: Hypoglycemia Protocol Stop: 09/10/20 21:44 Glucose (Glucose 10 Tabs/Tube) 4 - 8 tabs PO UD PRN; Protocol PRN Reason: Hypoglycemia Protocol Stop: 09/10/20 21:44 Hydromorphone HCl (Hydromorphone Inj 0.5 Mg/0.5 Ml Syr) 0.5 mg IV Q4H PRN PRN Reason: Pain or Pre PT Stop: 08/26/20 16:29 Heparin Sodium/Dextrose (Heparin Sodium/Dextrose) 25,000 units in 500 mls @ 26 mls/hr IV .[id number] [facility]; Protocol Stop: 09/17/20 15:29 Last Titration: 08/24/20 06:16 Dose: 1,300 units/hr, 26 mls/hr Documented by: Sodium Chloride (Nss 1000ml) 1,000 mls @ 125 mls/hr IV .Q8H [facility] Stop: 09/22/20 07:44 Last Admin: 08/24/20 05:36 Dose: 125 mls/hr Documented by: Ceftriaxone Sodium 2,000 mg/ (Dextrose) 70 mls @ 140 mls/hr IV Q24H [facility] Stop: 10/04/20 10:59 Last Infusion: 08/23/20 12:41 Dose: Infused Documented by: Metronidazole (Flagyl) 500 mg in 100 mls @ 100 mls/hr IV Q8 [facility] Stop: 10/04/20 13:59 Last Infusion: 08/24/20 06:49 Dose: Infused Documented by: Insulin Aspart (Insulin Aspart 100 Units/Ml 3 Ml Pen) 0 units SC Q6 [facility] Stop: 09/23/20 05:59 Last Admin: 08/24/20 07:02 Dose: Not Given Documented by: Insulin Glargine (Insulin Glargine Solostar 100 Units/Ml 3 Ml Pen) 5 units SC BID [facility] Stop: 09/13/20 20:59 Last Admin: 08/23/20 21:00 Dose: 5 units Documented by: Lactobacillus Acidoph/Casei/Rhamnos (Advanced Probiotic 1250 Mg Capsule) 2 cap PO DAILY [facility] Stop: 09/21/20 08:59 Last Admin: 08/23/20 08:57 Dose: 2 cap Documented by: Losartan Potassium (Losartan Potassium 50 Mg Tab) 50 mg PO HS [facility] Stop: 09/10/20 20:59 Last Admin: 08/23/20 21:01 Dose: 50 mg Documented by: Magnesium Oxide (Magnesium Oxide 400 Mg Tab) 400 mg PO BID [facility] Stop: 09/10/20 20:59 Last Admin: 08/23/20 21:01 Dose: 400 mg Documented by: Miscellaneous (Jardiance~Order Awaiting Action) 1 ea N/A QS [facility] Stop: 09/10/20 21:44 Last Admin: 08/23/20 23:28 Dose: Not Given Documented by: Miscellaneous (Carbohydrates For Hypoglycemia ) 15 - 30 gm PO UD PRN PRN Reason: Hypoglycemia Treatment Stop: 09/10/20 21:44 Multivitamins/Folic Acid/Vitamin C (Multivitamin Chewable Tab) 1 tab PO PM [facility] Stop: 09/10/20 20:59 Last Admin: 08/23/20 21:01 Dose: 1 tab Documented by: Naloxone HCl (Naloxone Hcl 0.4 Mg/1 Ml Vial/Carp) 0.1 mg IV Q5M PRN PRN Reason: Oversedation/Resp Depression Stop: 09/11/20 16:29 Nystatin (Nystatin Powder 15gm Btl) 1 appln EXT BID [facility] Stop: 09/11/20 20:59 Last Admin: 08/23/20 20:55 Dose: Not Given Documented by: Ondansetron HCl (Ondansetron Inj 2 Mg/Ml 2 Ml Vial) 4 mg IV Q6H PRN PRN Reason: Nausea Stop: 09/10/20 20:17 Last Admin: 08/16/20 13:11 Dose: 4 mg Documented by: Oxycodone HCl (Oxycodone Hcl Ir 5 Mg Tab (Immediate Release)) 5 - 10 mg PO Q4H PRN PRN Reason: Pain or Pre PT Stop: 08/26/20 16:29 Last Admin: 08/23/20 23:57 Dose: 5 mg Documented by: Polyethylene Glycol (Polyethylene (Miralax) 17 Gm Pack) 17 gm PO DAILY PRN PRN Reason: Constipation Stop: 09/10/20 20:17 Tamsulosin HCl (Tamsulosin Hcl 0.4 Mg Cap) 0.4 mg PO PM [facility] Stop: 09/10/20 20:59 Last Admin: 08/23/20 21:01 Dose: 0.4 mg Documented by: Triamcinolone Acetonide (Triamcinolone Acet 0.1% Cr 15 Gm Tube) 1 appln TOP BID [facility] Stop: 09/10/20 20:59 Last Admin: 08/23/20 20:56 Dose: Not Given Documented by: Vitamin D (Cholecalciferol 1,000 Units 25 Mcg Tab) 2,000 units PO PM [facility] Stop: 09/10/20 20:59 Last Admin: 08/23/20 21:02 Dose: 2,000 units Documented by: Warfarin Sodium (Warfarin Sod 0.5 Mg Tab) 1.5 mg PO SuTuThSa@1600 [facility] Stop: 09/14/20 15:59 Last Admin: 08/15/20 17:31 Dose: 1.5 mg Documented by: Warfarin Sodium (Warfarin Sod 3 Mg Tab) 3 mg PO MoWeFr@1600 [facility] Stop: 09/13/20 15:59 Last Admin: 08/14/20 17:06 Dose: 3 mg Documented by:
[2020-08-24] MEDS ORDERED: MIDAZOLAM HCL 1 MG/ML 2ML VIAL ONE ×3 (08:29→11:41)
--- NOTE | 2020-08-24 11:06 | Post Anesthesia Assessment ---
Date of Service August 24, 2020 Post Sedation Assessment Vital Signs Temp Pulse Resp BP BP Pulse Ox 08/23/20 22:09 98.6 F 60 16 110/61 95 08/23/20 14:50 97.7 F 59 L 16 103/66 96 Recovery Score Activity: Moves 4 extremities Respiration: Deep Breath/Cough Circulation: +/-20% PreAnes Value Consciousness: Arouseable (by name) Oxygen Saturation: O2 needed for >90% Post Anesthesia Score: 8 Discharge Sedation Level of Care: Fast Track Phase II Post Sedation Plan On clinical assessment, the patient appears to have tolerated the sedation without complications. Patient is recovering as anticipated. Patient will continue to be monitored by nursing and may be discharged when sedation discharge criteria are met per below protocol. Upon Completions of procedure up to 15 minutes continue every 5 minute vital signs and the P.A.R. score; then discharge to a Phase I or Fast Track to Phase II per the following guidelines: * Discharge Patient to appropriate Phase II area if PAR is 8 or greater or return to pre- procedure baseline. The post - procedure orders will be as directed. * If PAR score is less than 8 or not return to pre-procedure baseline then patient will follow Phase I monitoring till PAR is reached for Phase II. The Phase I may be done in procedure room or may call to secure a Phase I area. * If naloxone or flumazenil are used for reversal, hold in Phase I for c ontinued monitoring from when last reversal dose was given for a minimum of 60 minutes or longer pending the nurse and/or physician discretion of patient condition before discharge to Phase II. Please call the Sedation Physician to re-evaluate and complete post-note for discharge to Phase II area. Do NOT discharge from procedure sedation or Phase 1 until post- sedation evaluation note is complete by procedure /sedation MD Sedation Discharge Instructions to be given to the patient at discharge to home.
[2020-08-24] MEDS ORDERED: CLOPIDOGREL BISULFATE 300 MG TAB ONE (11:09)
--- NOTE | 2020-08-24 11:11 | Endovascular Procedure Note ---
[facility] Endovascular Procedure Rpt Pre & Post Diagnosis Peripheral arterial disease I identified the patient and participated in the time-out.: Yes Procedure Operation Date: 08/24/20 08:00 Actual Procedures p Ultrasound Vascular Access - Roger Castro MD s Angio Extremity Unilateral - Roger Castro MD s Tibioper Balloon Stent Each Additional - Roger Castro MD s Tibioperoneal Balloon Stent - Roger Castro MD Surgeon Jhonatan Castro MD Silk Screen Painter None Estimated Blood Loss 40 Findings Consistent with Post-Op Diagnosis Abdominal aorta--no significant aneurysmal or stenotic disease Right lower extremity-- -Common iliac, external iliac, internal iliac widely patent -MORTGAGE MANAGER, profunda widely patent -SFA widely patent -Popliteal widely patent -EVELINE heavily calcified at the ostium with 80% ostial stenosis -TPT heavily calcified with 90% stenosis HEAVY EQUIPMENT DIESEL MECHANIC widely patent to the foot Peroneal 70% proximal stenosis. Distal vessel tapers prior to the ankle. -DPA patent but tapers off in mid foot. Lateral plantar artery extends to forefoot. Incomplete pedal arch. Left lower extremity-- -Common iliac, external iliac, internal iliac widely patent -MORTGAGE MANAGER, proximal profunda widely patent Anesthesia Type RN Sedation Radiation Exposure (mGv) Radiation (mGy): 771 Contrast Contrast: 140 Complications none Disposition Accompanied Patient To Recovery: No Disposition: PCU Description of Procedure Left MORTGAGE MANAGER obtained under ultrasound guidance, short 5Fr sheath placed Abdominal aortogram and proximal right lower extremity angiogram performed with RIM catheter. Selective angiography with quick cross catheter placed in proximal SFA 6 Fr 65 cm destination sheath placed from left MORTGAGE MANAGER to right SFA. Long whisper wire placed across EVELINE proximal stenosis into distal vessel Proximal TPT stenosis crossed with 0.14 command wire and quick cross support catheter. Proximal EVELINE dilated with 2.5 balloon TPT into peroneal dilated with 2.5 balloon Post balloon inflations flow-limiting dissection in proximal EVELINE/TPT Command wire navigated from peroneal into HEAVY EQUIPMENT DIESEL MECHANIC. Wire exchanged for mailman support wire EVELINE dilated with 3.0 and 4.0 balloons TPT into HEAVY EQUIPMENT DIESEL MECHANIC dilated with 3.0, 4.0 and 5.0 balloons 3.5 x 38 mm [place] drug-eluting stent placed from ostium of EVELINE across proximal stenosis Stent postdilated with 4.0 NC balloon 3.5 x 26 mm [place] drug-eluting stent placed to TPT into HEAVY EQUIPMENT DIESEL MECHANIC Second LIONEL (4.0 x 30 mm [place]) Placed from popliteal across takeoff of EVELINE into TPT, overlapping with prior stent. Overlapping stents from popliteal to HEAVY EQUIPMENT DIESEL MECHANIC postdilated with 5.0 NC balloon EVELINE rewired through stent struts with whisper wire EVELINE stent redilated through stent struts with 3.5 balloon IA vasodilators administered for spasm Post procedure good angiographic result, stents well expanded, brisk two-vessel runoff to the foot. Contrast used: 140 Moderate sedation: [id number] Access closure: Angio-Seal Summary: 1. Right lower extremity --widely patent iliacs to popliteal. Severe, heavily calcified disease involving proximal EVELINE, TPT and peroneal arteries. 2. Left lower extremity --widely patent iliacs, MORTGAGE MANAGER. 3. Successful bifurcation stenting of heavily calcified anterior tibial, tibioperoneal trunk with 3 drug-eluting stents (3.5 x 38 mm [place] in EVELINE, 4.0 x 30 + 3.5 x 26 mm [place] overlapping from popliteal into HEAVY EQUIPMENT DIESEL MECHANIC). 4. Successful angioplasty of proximal peroneal with 2.5 balloon. Final result: Brisk right lower extremity two-vessel runoff into the foot. Recommendations: Continue DAPT with ASA/Clopidogrel for 3 months Follow-up non-invasive vascular testing in 2 weeks. I attest to the content of the Intraoperative Record and any orders documented therein. Any exceptions are noted below. Vascular Charges Angiography/Venography Procedure 1: Angiography/Venography charges: [id number] Initial 3rd order or selective abd, pelvic, or LE branch Lower Extremity Interventions Procedure 1: Lower Extremity Intervention charges: [id number] Stent plcmt, tibial, peroneal art, UL, initial vessel Procedure 2: Lower Extremity Intervention charges: [id number] Stent Placement, tib/bryson artery, UL, each add'l vessel Procedure 3: Lower Extremity Intervention charges: [id number] Angioplasty, tibial, peroneal artery, UL each add'l vessel Additional Services Procedure 1: Additional Services Charges: 97005 Ultrasound guidance - vascular access Procedure 2: Additional Services Charges: 14710 Moderate sedation initial 15 min Procedure 3: Additional Services Charges: 36365 Moderate sedation, each additional 15 min
[2020-08-24] MEDS: DOCUSATE SODIUM 100 MG CAP PO SCH ×2 (12:30→21:57)
[2020-08-24] MEDS: FUROSEMIDE 20 MG TAB PO SCH (12:36)
[2020-08-24] MEDS: INSULIN GLARGINE SOLOSTAR 100 UNITS/ML 3 ML PEN SC SCH ×2 (12:36→22:02)
[2020-08-24] MEDS: ADVANCED PROBIOTIC 1250 MG CAPSULE PO SCH (12:36)
[2020-08-24] MEDS: NYSTATIN POWDER 15GM BTL EXT SCH ×2 (12:43→21:44)
[2020-08-24] MEDS: TRIAMCINOLONE ACET 0.1% CR 15 GM TUBE TOP SCH ×2 (12:44→21:44)
[2020-08-24] MEDS: MAGNESIUM OXIDE 400 MG TAB PO SCH ×2 (12:44→21:57)
[2020-08-24 13:15] LABS: Partial Thromboplastin Ratio 4.3
[2020-08-24 13:31] LABS: Partial Thromboplastin Time 112.7 Seconds (21.0-31.0)
--- NOTE | 2020-08-24 13:39 | Pharmacy Report ---
Pharmacy Vanc AUC Short Note - Date of Service August 21, 2020 - Assessment & Plan Assessment 70 year old M started on Vancomycin postoperatively this evening for treatment of osteomyelitis of R Great Toe. * Cultures pending. Afebrile. No leukocytosis. * Has been on Daptomycin, Doxycycline, Clindamycin, Ceftriaxone, and Cephalexin previously during this admission. Plan Vancomycin * AUC/JEAN is the preferred PK/PD target for vancomycin * AUC guided dosing is effective and associated with decreased risk of nephrotoxicity compared to traditional trough targets * Loading Dose: 2750 mg (24 mg/kg) IV x 1 * Maintenance Dose: 1000 mg (9 mg/kg) IV every 12 hours * Maintenance dose is predicted to achieve a steady-state trough of 17.4 mcg/mL and steady-state AUC24/JEAN of 508 mg/L.hr * This regimen may be associated with a 13% risk of nephrotoxicity * Trough level ordered for: 08/23/20 prior to the 0700 dose Pharmacy will continue to follow and will adjust dose/frequency as necessary. Thank you.
[2020-08-24] MEDS: HEPARIN SODIUM/DEXTROSE 25,000 UNITS/500 ML BAG IV SCH (14:07)
--- NOTE | 2020-08-24 14:48 | Orthopedic Progress Note ---
Date of Service August 24, 2020 Assessment & Plan (1) Osteomyelitis of toe: POD#3 1. Right great toe irrigation and debridement including skin, subcutaneous tissue and fascia. 2. Resection of suppurative flexor hallucis longus tendon. 3. Revision amputation, right great toe. 4. Incision and drainage of abscess, right forefoot. Dressing changed today. Daily dressing changes. Patient will require 2 weeks IV antibiotics and another 4 weeks of oral antibiotic after. Angiogram performed to day. NWB RLE. Ok to touch heel down for balance. Cultures growing E Coli and Group B Beta Strep. Ortho will sign off at this time. Please call with any questions. Admission and Anticipated Discharge Date Admission Date: August 11, 2020 Subjective POD 3 Pt sleeping but easily awoken. Tired today. No other complaints. Physical Exam Physical Exam: Dressings removed. Suture line intact. No purulence noted. Mild erythema noted. Redressed with adaptic,4x4's, kerlix and mary kay wrap. Results & Data ([facility]) Vital Signs (Past 12 Hours) Vital Signs Pulse Resp BP Pulse Ox 08/24/20 11:25 62 20 130/83 97 08/24/20 11:10 61 20 138/73 98
[2020-08-24] MEDS: cefTRIAXone SODIUM 2,000 MG in DEXTROSE 5% 50 ML IV SCH (15:03)
[2020-08-24] MEDS ORDERED: WARFARIN SOD 3 MG TAB PO ONE (18:30)
[2020-08-24] MEDS: ASPIRIN 81 MG ECTAB PO SCH (21:55)
[2020-08-24] MEDS: ATORVASTATIN 40 MG TAB PO SCH (21:55)
[2020-08-24] MEDS: CHOLECALCIFEROL 1,000 UNITS 25 MCG TAB PO SCH (21:56)
[2020-08-24] MEDS: MULTIVITAMIN CHEWABLE TAB PO SCH (21:57)
[2020-08-24] MEDS: CYANOCOBALAMIN 500 MCG TABLET (VITAMIN B-12) PO SCH (21:57)
[2020-08-24] MEDS: TAMSULOSIN HCL 0.4 MG CAP PO SCH (21:57)
[2020-08-25] MEDS: oxyCODONE HCL IR 5 MG TAB (IMMEDIATE RELEASE) PO PRN (01:47)
[2020-08-25] MEDS: metroNIDAZOLE 500 MG/100 ML BAG IV SCH ×3 (05:57→22:17)
[2020-08-25 06:35] LABS: Hematocrit (blood only) 42.7 % (42-52); Hemoglobin 13.9 g/dL (14.0-18.0); Mean Corpuscular Hemoglobin 30.5 pg (25-34); Mean Corpuscular Hgb Conc 32.6 g/dL (32-36); Mean Corpuscular Volume 93.6 fL (80-100); Mean Platelet Volume 10.2 fL (7.4-10.4); Platelet Count 280 K/uL (130-400); RDW Coefficient of Variation 14.5 % (11.5-14.5); RDW Standard Deviation 49.4 fL (36.4-46.3); Red Blood Count 4.56 M/uL (4.7-6.1); White Blood Count 5.14 K/uL (4.8-10.8)
[2020-08-25 06:46] LABS: INR 1.2 (0.9-1.1); Partial Thromboplastin Time 27.5 Seconds (21.0-31.0); Prothrombin Time 12.4 Seconds (9.0-12.0)
[2020-08-25 07:24] LABS: BUN Creatinine Ratio 12.9 (10-20); Calcium 8.8 mg/dl (8.5-10.1); Creatinine Clr Calc Pharmacy 69.5 ml/min; Est GFR (African American) 65.6 ml/min; Est GFR (Non-African American) 56.6 ml/min; Potassium 4.4 mmol/L (3.5-5.1)
--- NOTE | 2020-08-25 08:24 | Hospitalist Progress Note ---
Date of Service August 25, 2020 Assessment & Plan (1) Necrotizing fasciitis: (2) Osteomyelitis of toe: (3) Ulcer of left great toe due to diabetes mellitus: (4) Cellulitis of right lower limb: (5) Leukocytosis: (6) Diabetic peripheral neuropathy associated with type 2 diabetes mellitus: (7) Venous insufficiency: (8) Peripheral arterial disease: (9) Hypertension: (10) Mixed sleep apnea: (11) CKD (chronic kidney disease), stage III: (12) Dyslipidemia: (13) Pacemaker: Right great toe osteomyelitis Necrotizing fasciitis S/P right great toe amputation on 08/12/2020 --Iggy CT:Soft tissue gas present within the tissues surrounding the proximal distal phalanges of the great toe. The findings are consistent with a necrotizing fasciitis. Intramedullary gas involving the distal phalanx of the great toe and distal aspect of the proximal phalanx the great toe. This is an ancillary finding reported in osteomyelitis, and therefore osteomyelitis is strongly suspected. Surgical consultation recommended. Appreciate orthopedics input Blood Cx:No growth to date IV Dapto, Rocephin>>Transitioned to PO Doxy, Keflex Plan was to continue antibiotics for 10 to 14-day course as recommended by Ortho ID consulted Need to follow-up with Dr. Weiss/ upon discharge Continue daily dressing Case management to help with discharge planning Needs SNF Placement / or home health when appropriate Now s/p debridement given demarcation of wound (08/21/20) w/ Dr. Weiss - osteomyelitis identified, and forefoot abscess Restart IV antibiotics, follow cultures from the OR Orthopedics following -Patient on IV vancomycin and Zosyn for broad coverage after notified by orthopedics with findings from OR -Now culture from OR shows E. coli and group B strep, stopped Vanco and Zosyn and switched to Rocephin and Flagyl, await final cultures PAD - poor wound healing Obtained AKOSUA to assess circulation - Noncompressible peripheral arteries. Therefore AKOSUA's cannot be calculated. Follows w/ Dr. Castro (vascular) as outpatient, Dr. Castro consulted, arterial Doppler of right lower extremity ordered Right lower extremity arterial duplex with significant tibial disease and reduced toe pressure of 44 mmHg. Concerned current blood supply is inadequate to heal surgical wound. Patient is to undergo surgical debridement later today and is OK to do so from vascular standpoint. Feel he would benefit from right lower extremity angiogram with likely tibial intervention at some point to promote wound healing. This tentatively could be done Monday (08/24/20) if he is still inpatient. Otherwise can be arranged as an outpatient. 08/24/2020 Actual Procedures p Ultrasound Vascular Access - Roger Castro MD s Angio Extremity Unilateral - Roger Castro MD s Tibioper Balloon Stent Each Additional - Roger Castro MD s Tibioperoneal Balloon Stent - Roger Castro MD Summary: 1. Right lower extremity --widely patent iliacs to popliteal. Severe heavily calcified disease involving proximal EVELINE, TPT and peroneal arteries. 2. 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 3. Successful bifurcation stenting of heavily calcified anterior tibial, tibioperoneal trunk with 3 drug-eluting stents (3.5 x 38 mm [place] in EVELINE, 4.0 x 30 + 3.5 x 26 mm [place] overlapping from popliteal into DELINQUENT ACCOUNT CLERK). 4. Successful angioplasty of proximal peroneal with 2.5 balloon. Final result: Brisk right lower extremity two-vessel runoff into the foot. Recommendations: Continue Clopidogrel and warfarin after Discharge. Follow-up non-invasive vascular testing in 2 weeks. JORGE on CKD III Baseline creatinine 1.5-1.9 as per records, however Cr has been lower while inpt - then incr. Cr 1.4 (08/23) -Possibly pre-renal, possibly secondary to combination of Vanco and Zosyn for osteomyelitis and abscess -provided IV fluids, stopped Vanco Zosyn -reviewed cultures, and discussed with pharmacy, started on Rocephin and Flagyl - Cr improved to 1.2 (08/24) - cont. to monitor BMP UTI Urine Cx: E. coli Received Rocephin on Keflex as above DM II HbA1C:6.9 Hold Home regimen Continue Insulin therapy Monitor BGs Atrial fibrillation Rate control Continue Coumadin for anticoagulation Monitor INR: 1.8 Hold Coumadin given plan for debridement on Monday IV heparin, now on hold - restart 18-24 hrs after surgery Discussed with Dr. Castro, after his procedure on August 24, recommend to restart warfarin in the evening, no need for more IV heparin bridging H/O CVA Chronic right-sided numbness as per patient Continue aspirin, statin H/O CHF Chronic venous stasis insufficiency Continue home diuretics Monitor volume status DVT Px: Coumadin- restarted IV Heparin - now stopped (after endovasc. procedure) Code Status :Full code Disposition: PT/OT ordered, poss. home w/HH vs. SNF when appropriate Admission and Anticipated Discharge Date Admission Date: August 11, 2020 Subjective Patient is seen in follow-up of necrotizing fasciitis, osteomyelitis, PAD underwent debridement again , identified with osteomyelitis and forefoot abscess underwent endovasc. procedure w/ Dr. Castro s/p 3 stents Denies any significant foot pain (history of neuropathy) Denies fever, chills, chest pain, shortness of breath, dizziness, abdominal pain Review of Systems Constitutional: no fever and no chills Respiratory: no cough and no dyspnea Cardiovascular: no chest pain and no palpitations Physical Exam Physical Exam: General Appearance: Moderately built and nourished, no apparent distress Head: normocephalic, Atraumatic Eyes: normal inspection, EOMI Neck: supple, Trachea midline Respiratory/Chest: Normal breath sounds, CTA Cardiovascular: S1, S2, No murmur Abdomen/GI:Soft, Non tender, Bowel sounds present Extremities/Musculoskeletal:normal inspection, B/L LE edema, Right Foot in dressing, drain removed Neurologic/Psych:AAOX3, grossly no focal neurological deficits Skin: normal color, warm Results & Data Results & Data ([facility]) Vital Signs (Past 12 Hours) Vital Signs Temp Pulse Pulse Resp BP Pulse Ox 08/25/20 07:16 36.9 C 65 17 127/72 95 08/25/20 03:39 36.7 C 60 18 112/62 98 08/24/20 23:31 36.9 C 61 20 130/63 98 Laboratory Results 08/25/20 08/25/20 08/25/20 Range/Units 07:14 05:56 05:56 WBC 5.14 (4.8-10.8) K/uL RBC 4.56 L (4.7-6.1) M/uL Hgb 13.9 L (14.0-18.0) g/dL Hct 42.7 (42-52) % MCV 93.6 (80-100) fL MCH 30.5 (25-34) pg MCHC 32.6 (32-36) g/dL RDW Std Deviation 49.4 H (36.4-46.3) fL RDW Coeff of Jason 14.5 (11.5-14.5) % Plt Count 280 (130-400) K/uL MPV 10.2 (7.4-10.4) fL PT (9.0-12.0) Seconds INR (0.9-1.1) APTT (21.0-31.0) Seconds PTT Ratio Activ Coag Time Kaolin (94-140) SECONDS Sodium 137 (136-145) mmol/L Potassium 4.4 (3.5-5.1) mmol/L Chloride 105 (98-107) mmol/L Carbon Dioxide 29 (21-32) mmol/L Anion Gap 3.0 (3-11) BUN 17 (7-18) mg/dl Creatinine 1.29 (0.6-1.4) mg/dl Est Cr Clr Drug Dosing 69.5 ml/min Est GFR ( Amer) 65.6 ml/min Est GFR (Non-Af Amer) 56.6 ml/min BUN/Creatinine Ratio 12.9 (10-20) Glucose 88 (70-99) mg/dl POC Glucose 81 (70-99) mg/dl Calcium 8.8 (8.5-10.1) mg/dl 08/25/20 08/24/20 08/24/20 Range/Units 05:56 21:53 16:40 WBC (4.8-10.8) K/uL RBC (4.7-6.1) M/uL Hgb (14.0-18.0) g/dL Hct (42-52) % MCV (80-100) fL MCH (25-34) pg MCHC (32-36) g/dL RDW Std Deviation (36.4-46.3) fL RDW Coeff of Jason (11.5-14.5) % Plt Count (130-400) K/uL MPV (7.4-10.4) fL PT 12.4 H (9.0-12.0) Seconds INR 1.2 H (0.9-1.1) APTT 27.5 (21.0-31.0) Seconds PTT Ratio 1.0 Activ Coag Time Kaolin (94-140) SECONDS Sodium (136-145) mmol/L Potassium (3.5-5.1) mmol/L Chloride (98-107) mmol/L Carbon Dioxide (21-32) mmol/L Anion Gap (3-11) BUN (7-18) mg/dl Creatinine (0.6-1.4) mg/dl Est Cr Clr Drug Dosing ml/min Est GFR ( Amer) ml/min Est GFR (Non-Af Amer) ml/min BUN/Creatinine Ratio (10-20) Glucose (70-99) mg/dl POC Glucose 98 78 (70-99) mg/dl Calcium (8.5-10.1) mg/dl 08/24/20 08/24/20 08/24/20 Range/Units 14:43 12:39 10:25 WBC (4.8-10.8) K/uL RBC (4.7-6.1) M/uL Hgb (14.0-18.0) g/dL Hct (42-52) % MCV (80-100) fL MCH (25-34) pg MCHC (32-36) g/dL RDW Std Deviation (36.4-46.3) fL RDW Coeff of Jason (11.5-14.5) % Plt Count (130-400) K/uL MPV (7.4-10.4) fL PT (9.0-12.0) Seconds INR (0.9-1.1) APTT 112.7 H* (21.0-31.0) Seconds PTT Ratio 4.3 Activ Coag Time Kaolin 191 H (94-140) SECONDS Sodium (136-145) mmol/L Potassium (3.5-5.1) mmol/L Chloride (98-107) mmol/L Carbon Dioxide (21-32) mmol/L Anion Gap (3-11) BUN (7-18) mg/dl Creatinine (0.6-1.4) mg/dl Est Cr Clr Drug Dosing ml/min Est GFR ( Amer) ml/min Est GFR (Non-Af Amer) ml/min BUN/Creatinine Ratio (10-20) Glucose (70-99) mg/dl POC Glucose 84 (70-99) mg/dl Calcium (8.5-10.1) mg/dl 08/24/20 08/24/20 Range/Units 09:18 08:51 WBC (4.8-10.8) K/uL RBC (4.7-6.1) M/uL Hgb (14.0-18.0) g/dL Hct (42-52) % MCV (80-100) fL MCH (25-34) pg MCHC (32-36) g/dL RDW Std Deviation (36.4-46.3) fL RDW Coeff of Jason (11.5-14.5) % Plt Count (130-400) K/uL MPV (7.4-10.4) fL PT (9.0-12.0) Seconds INR (0.9-1.1) APTT (21.0-31.0) Seconds PTT Ratio Activ Coag Time Kaolin 186 H 158 H (94-140) SECONDS Sodium (136-145) mmol/L Potassium (3.5-5.1) mmol/L Chloride (98-107) mmol/L Carbon Dioxide (21-32) mmol/L Anion Gap (3-11) BUN (7-18) mg/dl Creatinine (0.6-1.4) mg/dl Est Cr Clr Drug Dosing ml/min Est GFR ( Amer) ml/min Est GFR (Non-Af Amer) ml/min BUN/Creatinine Ratio (10-20) Glucose (70-99) mg/dl POC Glucose (70-99) mg/dl Calcium (8.5-10.1) mg/dl Medications Administered Current Inpatient Medications Acetaminophen (Acetaminophen 325 Mg Tab) 650 mg PO Q4H PRN PRN Reason: pain/fever Stop: 09/10/20 20:17 Last Admin: 08/17/20 08:12 Dose: 650 mg Documented by: Aspirin (Aspirin 81 Mg Ectab) 81 mg PO QPM [facility] Stop: 09/10/20 20:59 Last Admin: 08/24/20 21:55 Dose: 81 mg Documented by: Atorvastatin Calcium (Atorvastatin 40 Mg Tab) 40 mg PO PM [facility] Stop: 09/10/20 20:59 Last Admin: 08/24/20 21:55 Dose: 40 mg Documented by: Betamethasone Dipropion Augmented (Betamethasone Dip Aug 0.05% Oint 15 Gm Tube) 1 appln EXT DAILY PRN PRN Reason: Dry Skin Stop: 09/10/20 20:17 Clopidogrel Bisulfate (Clopidogrel Bisulfate 75 Mg Tab) 75 mg PO QAM [facility] Stop: 09/24/20 08:59 Cyanocobalamin (Cyanocobalamin 500 Mcg Tablet (Vitamin B-12)) 1,000 mcg PO PM [facility] Stop: 09/10/20 20:59 Last Admin: 08/24/20 21:57 Dose: 1,000 mcg Documented by: Dextrose (Dextrose 50% 50 Ml Syringe) 25 - 50 ml IV UD PRN; Protocol PRN Reason: Hypoglycemia Protocol Stop: 09/10/20 21:44 Docusate Sodium (Docusate Sodium 100 Mg Cap) 100 mg PO BID [facility] Stop: 09/11/20 20:59 Last Admin: 08/24/20 21:57 Dose: 100 mg Documented by: Furosemide (Furosemide 20 Mg Tab) 20 mg PO MoWeFr@0900 [facility] Stop: 09/11/20 08:59 Last Admin: 08/24/20 12:36 Dose: 20 mg Documented by: Furosemide (Furosemide 40 Mg Tab) 40 mg PO SuTuThSa@0900 [facility] Stop: 09/12/20 08:59 Last Admin: 08/23/20 08:57 Dose: 40 mg Documented by: Glucagon (Glucagon For Inj 1 Mg Vial) 1 mg IM UD PRN; Protocol PRN Reason: Hypoglycemia Protocol Stop: 09/10/20 21:44 Glucose (Glucose 40% Gel 15 Gm Tube) 15 - 30 gm PO UD PRN; Protocol PRN Reason: Hypoglycemia Protocol Stop: 09/10/20 21:44 Glucose (Glucose 10 Tabs/Tube) 4 - 8 tabs PO UD PRN; Protocol PRN Reason: Hypoglycemia Protocol Stop: 09/10/20 21:44 Hydromorphone HCl (Hydromorphone Inj 0.5 Mg/0.5 Ml Syr) 0.5 mg IV Q4H PRN PRN Reason: Pain or Pre PT Stop: 08/26/20 16:29 Heparin Sodium/Dextrose (Heparin Sodium/Dextrose) 25,000 units in 500 mls @ 26 mls/hr IV .[id number] [facility]; Protocol Stop: 09/17/20 15:29 Last Admin: 08/24/20 14:07 Dose: Not Given Documented by: Ceftriaxone Sodium 2,000 mg/ (Dextrose) 70 mls @ 140 mls/hr IV Q24H [facility] Stop: 10/04/20 10:59 Last Infusion: 08/24/20 15:34 Dose: Infused Documented by: Metronidazole (Flagyl) 500 mg in 100 mls @ 100 mls/hr IV Q8 [facility] Stop: 10/04/20 13:59 Last Infusion: 08/25/20 07:22 Dose: Infused Documented by: Insulin Aspart (Insulin Aspart 100 Units/Ml 3 Ml Pen) 0 units SC ACHS [facility] Stop: 09/24/20 07:29 Insulin Glargine (Insulin Glargine Solostar 100 Units/Ml 3 Ml Pen) 5 units SC BID [facility] Stop: 09/13/20 20:59 Last Admin: 08/24/20 22:02 Dose: 5 units Documented by: Lactobacillus Acidoph/Casei/Rhamnos (Advanced Probiotic 1250 Mg Capsule) 2 cap PO DAILY [facility] Stop: 09/21/20 08:59 Last Admin: 08/24/20 12:36 Dose: 2 cap Documented by: Losartan Potassium (Losartan Potassium 50 Mg Tab) 50 mg PO HS [facility] Stop: 09/10/20 20:59 Last Admin: 08/23/20 21:01 Dose: 50 mg Documented by: Magnesium Oxide (Magnesium Oxide 400 Mg Tab) 400 mg PO BID [facility] Stop: 09/10/20 20:59 Last Admin: 08/24/20 21:57 Dose: 400 mg Documented by: Miscellaneous (Jardiance~Order Awaiting Action) 1 ea N/A QS [facility] Stop: 09/10/20 21:44 Last Admin: 08/25/20 01:48 Dose: Not Given Documented by: Miscellaneous (Carbohydrates For Hypoglycemia ) 15 - 30 gm PO UD PRN PRN Reason: Hypoglycemia Treatment Stop: 09/10/20 21:44 Multivitamins/Folic Acid/Vitamin C (Multivitamin Chewable Tab) 1 tab PO PM [facility] Stop: 09/10/20 20:59 Last Admin: 08/24/20 21:57 Dose: 1 tab Documented by: Naloxone HCl (Naloxone Hcl 0.4 Mg/1 Ml Vial/Carp) 0.1 mg IV Q5M PRN PRN Reason: Oversedation/Resp Depression Stop: 09/11/20 16:29 Nystatin (Nystatin Powder 15gm Btl) 1 appln EXT BID [facility] Stop: 09/11/20 20:59 Last Admin: 08/24/20 21:44 Dose: Not Given Documented by: Ondansetron HCl (Ondansetron Inj 2 Mg/Ml 2 Ml Vial) 4 mg IV Q6H PRN PRN Reason: Nausea Stop: 09/10/20 20:17 Last Admin: 08/16/20 13:11 Dose: 4 mg Documented by: Oxycodone HCl (Oxycodone Hcl Ir 5 Mg Tab (Immediate Release)) 5 - 10 mg PO Q4H PRN PRN Reason: Pain or Pre PT Stop: 08/26/20 16:29 Last Admin: 08/25/20 01:47 Dose: 5 mg Documented by: Polyethylene Glycol (Polyethylene (Miralax) 17 Gm Pack) 17 gm PO DAILY PRN PRN Reason: Constipation Stop: 09/10/20 20:17 Tamsulosin HCl (Tamsulosin Hcl 0.4 Mg Cap) 0.4 mg PO PM [facility] Stop: 09/10/20 20:59 Last Admin: 08/24/20 21:57 Dose: 0.4 mg Documented by: Triamcinolone Acetonide (Triamcinolone Acet 0.1% Cr 15 Gm Tube) 1 appln TOP BID [facility] Stop: 09/10/20 20:59 Last Admin: 08/24/20 21:44 Dose: Not Given Documented by: Vitamin D (Cholecalciferol 1,000 Units 25 Mcg Tab) 2,000 units PO PM [facility] Stop: 09/10/20 20:59 Last Admin: 08/24/20 21:56 Dose: 2,000 units Documented by: Warfarin Sodium (Warfarin Sod 0.5 Mg Tab) 1.5 mg PO SuTuThSa@1600 [facility] Stop: 09/14/20 15:59 Last Admin: 08/15/20 17:31 Dose: 1.5 mg Documented by: Warfarin Sodium (Warfarin Sod 3 Mg Tab) 3 mg PO MoWeFr@1600 [facility] Stop: 09/13/20 15:59 Last Admin: 08/14/20 17:06 Dose: 3 mg Documented by:
[2020-08-25] MEDS: ADVANCED PROBIOTIC 1250 MG CAPSULE PO SCH (08:28)
[2020-08-25] MEDS: CLOPIDOGREL BISULFATE 75 MG TAB PO SCH (08:28)
[2020-08-25] MEDS: FUROSEMIDE 40 MG TAB PO SCH (08:28)
[2020-08-25] MEDS: DOCUSATE SODIUM 100 MG CAP PO SCH ×2 (08:29→20:46)
[2020-08-25] MEDS: MAGNESIUM OXIDE 400 MG TAB PO SCH ×2 (08:30→20:46)
[2020-08-25] MEDS: TRIAMCINOLONE ACET 0.1% CR 15 GM TUBE TOP SCH ×2 (08:30→20:48)
[2020-08-25] MEDS: NYSTATIN POWDER 15GM BTL EXT SCH ×2 (08:30→20:46)
[2020-08-25] MEDS: INSULIN ASPART 100 UNITS/ML 3 ML PEN SC SCH ×4 (08:31→20:52)
[2020-08-25] MEDS: INSULIN GLARGINE SOLOSTAR 100 UNITS/ML 3 ML PEN SC SCH ×2 (08:32→20:53)
--- NOTE | 2020-08-25 08:36 | Vascular Medicine ProgressNote ---
Date of Service August 25, 2020 Assessment & Plan (1) Peripheral arterial disease: 2. RT great toe osteomyelitis post amputation and revision. 3. Chronic venous insufficiency 4. Type 2 diabetes 5. Dyslipidemia 6. Atrial fibrillation on Coumadin Post procedure day 1 after RT TPT, EVELINE stenting. No apparent access site complications. Stable Hb/renal function. From a vascular standpoint OK with discharge today with f/up with me in 2 weeks with repeat Toe pressures. Home on dual therapy with clopidogrel, warfarin (does not need bridging). Discontinue ASA on discharge. F/up with [facility]. Admission and Anticipated Discharge Date Admission Date: August 11, 2020 Subjective Feeling well this morning. Had some right foot pain overnight, well controlled today. Paced rhythm on telemetry. Review of Systems Review of Systems: All systems reviewed & are unremarkable except as noted in HPI & below Physical Exam Physical Exam: General: No acute distress, comfortable. HEENT: Sclerae anicteric. Lungs: Clear to auscultation bilaterally Cardiac: Regular rate and rhythm. Extremities/vascular: --LT LABOR ARBITRATOR 2+ pulse, dressing in place. No ecchymosis or hematoma. --RT foot dressed. normal cap refill in 3-5 toes. Psychiatric: Affect appropriate. Alert and oriented. Results & Data ([facility]) Vital Signs (Past 12 Hours) Vital Signs Temp Pulse Pulse Resp BP Pulse Ox 08/25/20 07:16 98.4 F 65 17 127/72 95 08/25/20 03:39 98.1 F 60 18 112/62 98 08/24/20 23:31 98.4 F 61 20 130/63 98 PG Care Time/CCT Total # of Minutes Spent Total Time Spent with Patient: Total time spent is greater than 50% in coordination of care (as documented) at patient's floor/unit and/or counseling patient: Coding Level of Care Code 14600 Subseq Hosp Care Lvl 3 Diagnoses Peripheral arterial disease I73.9
[2020-08-25] MEDS: cefTRIAXone SODIUM 2,000 MG in DEXTROSE 5% 50 ML IV SCH (12:09)
[2020-08-25] MEDS: WARFARIN SOD 3 MG TAB PO SCH (16:45)
[2020-08-25] MEDS: ATORVASTATIN 40 MG TAB PO SCH (20:44)
[2020-08-25] MEDS: ASPIRIN 81 MG ECTAB PO SCH (20:44)
[2020-08-25] MEDS: CHOLECALCIFEROL 1,000 UNITS 25 MCG TAB PO SCH (20:45)
[2020-08-25] MEDS: CYANOCOBALAMIN 500 MCG TABLET (VITAMIN B-12) PO SCH (20:45)
[2020-08-25] MEDS: MULTIVITAMIN CHEWABLE TAB PO SCH (20:46)
[2020-08-25] MEDS: TAMSULOSIN HCL 0.4 MG CAP PO SCH (20:46)
[2020-08-26] MEDS: metroNIDAZOLE 500 MG/100 ML BAG IV SCH ×3 (06:14→20:46)
[2020-08-26 06:30] LABS: INR 1.3 (0.9-1.1); Prothrombin Time 12.6 Seconds (9.0-12.0)
[2020-08-26] MEDS: ADVANCED PROBIOTIC 1250 MG CAPSULE PO SCH (08:37)
[2020-08-26] MEDS: INSULIN ASPART 100 UNITS/ML 3 ML PEN SC SCH ×4 (08:37→21:13)
[2020-08-26] MEDS: FUROSEMIDE 20 MG TAB PO SCH (08:37)
[2020-08-26] MEDS: CLOPIDOGREL BISULFATE 75 MG TAB PO SCH (08:37)
[2020-08-26] MEDS: DOCUSATE SODIUM 100 MG CAP PO SCH ×2 (08:38→20:46)
[2020-08-26] MEDS: INSULIN GLARGINE SOLOSTAR 100 UNITS/ML 3 ML PEN SC SCH ×2 (08:39→21:42)
[2020-08-26] MEDS: NYSTATIN POWDER 15GM BTL EXT SCH ×2 (08:40→20:40)
[2020-08-26] MEDS: TRIAMCINOLONE ACET 0.1% CR 15 GM TUBE TOP SCH ×2 (08:40→20:40)
[2020-08-26] MEDS: MAGNESIUM OXIDE 400 MG TAB PO SCH ×2 (08:40→20:40)
[2020-08-26] MEDS: cefTRIAXone SODIUM 2,000 MG in DEXTROSE 5% 50 ML IV SCH (12:18)
[2020-08-26] MEDS: WARFARIN SOD 3 MG TAB PO SCH (16:11)
--- NOTE | 2020-08-26 18:38 | Hospitalist Progress Note ---
Date of Service August 26, 2020 Assessment & Plan (1) Necrotizing fasciitis: (2) Osteomyelitis of toe: (3) Ulcer of left great toe due to diabetes mellitus: Plan: Right great toe osteomyelitis Necrotizing fasciitis S/P right great toe amputation on 08/12/2020 --Iggy CT:Soft tissue gas present within the tissues surrounding the proximal distal phalanges of the great toe. The findings are consistent with a necrotizing fasciitis. Intramedullary gas involving the distal phalanx of the great toe and distal aspect of the proximal phalanx the great toe. This is an ancillary finding reported in osteomyelitis, and therefore osteomyelitis is strongly suspected. Surgical consultation recommended. Appreciate orthopedics input Blood Cx:No growth to date IV Dapto, Rocephin>>Transitioned to PO Doxy, Keflex Plan was to continue antibiotics for 10 to 14-day course as recommended by Ortho ID consulted Need to follow-up with Dr. Weiss/ upon discharge Continue daily dressing Case management to help with discharge planning Needs SNF Placement / or home health when appropriate Now s/p debridement given demarcation of wound (08/21/20) w/ Dr. Weiss - osteomyelitis identified, and forefoot abscess Restart IV antibiotics, follow cultures from the OR Orthopedics following -Patient on IV vancomycin and Zosyn for broad coverage after notified by orthopedics with findings from OR -Now culture from OR shows E. coli and group B strep, stopped Vanco and Zosyn and switched to Rocephin and Flagyl, await final cultures Will discuss with ID about the abx duration PAD - poor wound healing Obtained AKOSUA to assess circulation - Noncompressible peripheral arteries. The refore AKOSUA's cannot be calculated. Follows w/ Dr. Castro (vascular) as outpatient, Dr. Castro consulted, arterial Doppler of right lower extremity ordered Right lower extremity arterial duplex with significant tibial disease and reduced toe pressure of 44 mmHg. Concerned current blood supply is inadequate to heal surgical wound. S/P surgical debridement Feel he would benefit from right lower extremity angiogram with likely tibial intervention at some point to promote wound healing. This tentatively could be done Monday (08/24/20) if he is still inpatient. Otherwise can be arranged as an outpatient. 08/24/2020 Actual Procedures p Ultrasound Vascular Access - Roger Castro MD s Angio Extremity Unilateral - Roger Castro MD s Tibioper Balloon Stent Each Additional - Roger Castro MD s Tibioperoneal Balloon Stent - Roger Castro MD Summary: 1. Right lower extremity --widely patent iliacs to popliteal. Severe heavily calcified disease involving proximal EVELINE, TPT and peroneal arteries. 2. 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 3. Successful bifurcation stenting of heavily calcified anterior tibial, tibioperoneal trunk with 3 drug-eluting stents (3.5 x 38 mm [place] in EVELINE, 4.0 x 30 + 3.5 x 26 mm [place] overlapping from popliteal into LINK WIRE FABRIC MACHINE OPERATOR). 4. Successful angioplasty of proximal peroneal with 2.5 balloon. Final result: Brisk right lower extremity two-vessel runoff into the foot. Recommendations: Continue DAPT with ASA/Clopidogrel for 3 months Follow-up non-invasive vascular testing in 2 weeks. JORGE on CKD III Baseline creatinine 1.5-1.9 as per records, however Cr has been lower while inpt - then incr. Cr 1.4 (08/23) -Possibly pre-renal, possibly secondary to combination of Vanco and Zosyn for osteomyelitis and abscess -provided IV fluids, stopped Vanco Zosyn -reviewed cultures, and discussed with pharmacy, started on Rocephin and Flagyl - Cr improved to 1.2 (08/24) - cont. to monitor BMP UTI Urine Cx: E. coli Received Rocephin on Keflex as above DM II HbA1C:6.9 Hold Home regimen Continue Insulin therapy Monitor BGs Atrial fibrillation Rate control Continue Coumadin for anticoagulation Monitor INR: 1.3 Hold Coumadin given plan for debridement on Monday IV heparin, now on hold - restart 18-24 hrs after surgery Discussed with Dr. Castro, after his procedure on August 24, recommend to restart warfarin in the evening, no need for more IV heparin bridging H/O CVA Chronic right-sided numbness as per patient Continue aspirin, statin H/O CHF Chronic venous stasis insufficiency Continue home diuretics Monitor volume status DVT Px: Coumadin- restarted IV Heparin - now stopped (after endovasc. procedure) Code Status :Full code Disposition: PT/OT ordered, poss. home w/HH vs. SNF when appropriate Admission and Anticipated Discharge Date Admission Date: August 11, 2020 Subjective Pt was seen and examined for follow up Lying in bed with no distress eating dinner Patient said that he feels fine He said that he does not have any pain in his lower extremity Denies any chest pain, palpitation, dizziness and SOB Physical Exam Physical Exam: General Appearance: Moderately built and nourished, no apparent distress Head: normocephalic, Atraumatic Eyes: normal inspection, EOMI Neck: supple, Trachea midline Respiratory/Chest: Normal breath sounds, CTA Cardiovascular: S1, S2, No murmur Abdomen/GI:Soft, Non tender, Bowel sounds present Extremities/Musculoskeletal:normal inspection, B/L LE edema, Right Foot in dressing, drain removed Neurologic/Psych:AAOX3, grossly no focal neurological deficits Skin: normal color, warm Results & Data Results & Data ([facility]) Vital Signs (Past 12 Hours) Vital Signs Temp Pulse Pulse Resp BP Pulse Ox 08/26/20 15:47 36.9 C 61 17 104/63 98 08/26/20 11:17 36.7 C 65 18 112/71 95 08/26/20 08:00 60 08/26/20 07:05 36.5 C 61 18 115/71 94
[2020-08-26] MEDS: TAMSULOSIN HCL 0.4 MG CAP PO SCH (20:40)
[2020-08-26] MEDS: MULTIVITAMIN CHEWABLE TAB PO SCH (20:40)
[2020-08-26] MEDS: ASPIRIN 81 MG ECTAB PO SCH (20:43)
[2020-08-26] MEDS: CHOLECALCIFEROL 1,000 UNITS 25 MCG TAB PO SCH (20:43)
[2020-08-26] MEDS: ATORVASTATIN 40 MG TAB PO SCH (20:44)
[2020-08-26] MEDS: CYANOCOBALAMIN 500 MCG TABLET (VITAMIN B-12) PO SCH (20:44)
[2020-08-27] MEDS: metroNIDAZOLE 500 MG/100 ML BAG IV SCH ×3 (05:45→21:34)
[2020-08-27 06:29] LABS: INR 1.3 (0.9-1.1); Prothrombin Time 12.7 Seconds (9.0-12.0)
[2020-08-27] MEDS: INSULIN ASPART 100 UNITS/ML 3 ML PEN SC SCH ×4 (08:37→21:46)
[2020-08-27] MEDS: CLOPIDOGREL BISULFATE 75 MG TAB PO SCH (08:42)
[2020-08-27] MEDS: ADVANCED PROBIOTIC 1250 MG CAPSULE PO SCH (08:43)
[2020-08-27] MEDS: FUROSEMIDE 40 MG TAB PO SCH (08:44)
[2020-08-27] MEDS: INSULIN GLARGINE SOLOSTAR 100 UNITS/ML 3 ML PEN SC SCH ×2 (08:45→21:41)
[2020-08-27] MEDS: NYSTATIN POWDER 15GM BTL EXT SCH ×2 (08:47→21:37)
[2020-08-27] MEDS: TRIAMCINOLONE ACET 0.1% CR 15 GM TUBE TOP SCH ×2 (08:48→21:37)
[2020-08-27] MEDS: FUROSEMIDE 20 MG TAB PO SCH (09:00)
[2020-08-27] MEDS: cefTRIAXone SODIUM 2,000 MG in DEXTROSE 5% 50 ML IV SCH (12:00)
[2020-08-27] MEDS: DOCUSATE SODIUM 100 MG CAP PO SCH ×2 (13:10→21:46)
[2020-08-27] MEDS: MAGNESIUM OXIDE 400 MG TAB PO SCH ×2 (13:11→21:46)
[2020-08-27] MEDS: WARFARIN SOD 5 MG TAB PO SCH (15:28)
[2020-08-27] MEDS: CHOLECALCIFEROL 1,000 UNITS 25 MCG TAB PO SCH (21:34)
[2020-08-27] MEDS: ASPIRIN 81 MG ECTAB PO SCH (21:34)
[2020-08-27] MEDS: ATORVASTATIN 40 MG TAB PO SCH (21:35)
[2020-08-27] MEDS: CYANOCOBALAMIN 500 MCG TABLET (VITAMIN B-12) PO SCH (21:35)
[2020-08-27] MEDS: TAMSULOSIN HCL 0.4 MG CAP PO SCH (21:37)
[2020-08-27] MEDS: MULTIVITAMIN CHEWABLE TAB PO SCH (21:37)
--- NOTE | 2020-08-27 21:57 | Hospitalist Progress Note ---
Date of Service August 27, 2020 Assessment & Plan (1) Necrotizing fasciitis: (2) Osteomyelitis of toe: (3) Ulcer of left great toe due to diabetes mellitus: Plan: Right great toe osteomyelitis Necrotizing fasciitis S/P right great toe amputation on 08/12/2020 --Iggy CT:Soft tissue gas present within the tissues surrounding the proximal distal phalanges of the great toe. The findings are consistent with a necrotizing fasciitis. Intramedullary gas involving the distal phalanx of the great toe and distal aspect of the proximal phalanx the great toe. This is an ancillary finding reported in osteomyelitis, and therefore osteomyelitis is strongly suspected. Appreciate orthopedics input Blood Cx:No growth to date ID consulted Now s/p debridement given demarcation of wound (08/21/20) w/ Dr. Weiss - osteomyelitis identified, and forefoot abscess Restart IV antibiotics, follow cultures from the OR Orthopedics following Patient on IV vancomycin and Zosyn for broad coverage after notified by orthopedics with findings from OR Now culture from OR shows E. coli and group B strep, stopped Vanco and Zosyn and switched to Rocephin and Flagyl, Case discussed with ID today recommended IV Rocephin x6 weeks and to discontinue the Flagyl since no anaerobes show only culture With Put PICC line for outpatient antibiotic infusion PAD - poor wound healing Obtained AKOSUA to assess circulation - Noncompressible peripheral arteries. Therefore AKOSUA's cannot be calculated. Follows w/ Dr. Castro (vascular) as outpatient, Dr. Castro consulted, arterial Doppler of right lower extremity ordered Right lower extremity arterial duplex with significant tibial disease and reduced toe pressure of 44 mmHg. Concerned current blood supply is inadequate to heal surgical wound. S/P surgical debridement Feel he would benefit from right lower extremity angiogram with likely tibial in tervention at some point to promote wound healing. This tentatively could be done Monday (08/24/20) if he is still inpatient. Otherwise can be arranged as an outpatient. 08/24/2020 Actual Procedures p Ultrasound Vascular Access - Roger Castro MD s Angio Extremity Unilateral - Rgoer Castro MD s Tibioper Balloon Stent Each Additional - Roger Castro MD s Tibioperoneal Balloon Stent - Roger Castro MD Summary: 1. Right lower extremity --widely patent iliacs to popliteal. Severe heavily calcified disease involving proximal EVELINE, TPT and peroneal arteries. 2. 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 3. Successful bifurcation stenting of heavily calcified anterior tibial, tibioperoneal trunk with 3 drug-eluting stents (3.5 x 38 mm Jacques in EVELINE, 4.0 x 30 + 3.5 x 26 mm Jacques overlapping from popliteal into DIRECTOR OF PRODUCT MARKETING). 4. Successful angioplasty of proximal peroneal with 2.5 balloon. Final result: Brisk right lower extremity two-vessel runoff into the foot. Recommendations: Continue DAPT with ASA/Clopidogrel for 3 months Follow-up non-invasive vascular testing in 2 weeks. JORGE on CKD III Baseline creatinine 1.5-1.9 as per records, however Cr has been lower while inpt - then incr. Cr 1.4 (08/23) -Possibly pre-renal, possibly secondary to combination of Vanco and Zosyn for osteomyelitis and abscess -provided IV fluids, stopped Vanco Zosyn -reviewed cultures, and discussed with pharmacy, started on Rocephin and Flagyl - Cr improved to 1.2 (08/24) - cont. to monitor BMP UTI Urine Cx: E. coli Received Rocephin on Keflex as above DM II HbA1C:6.9 Hold Home regimen Continue Insulin therapy Monitor BGs Atrial fibrillation Rate control Continue Coumadin for anticoagulation Monitor INR: 1.3 Hold Coumadin given plan for debridement on Monday IV heparin, now on hold - restart 18-24 hrs after surgery Discussed with Dr. Castro, after his procedure on August 24, recommend to restart warfarin in the evening, no need for more IV heparin bridging H/O CVA Chronic right-sided numbness as per patient Continue aspirin, statin H/O CHF Chronic venous stasis insufficiency Continue home diuretics Monitor volume status DVT Px: Coumadin- restarted IV Heparin - now stopped (after endovasc. procedure) Code Status :Full code Disposition: Waiting for placement to SNF We will place a PICC line Admission and Anticipated Discharge Date Admission Date: August 11, 2020 Subjective Patient was seen and examined for follow-up of toe osteomyelitis Lying in bed with no distress watching TV Patient said that he feels fine Denies any chest pain, palpitation, dizziness, shortness of breath. Physical Exam Physical Exam: General Appearance: Moderately built and nourished, no apparent distress Head: normocephalic, Atraumatic Eyes: normal inspection, EOMI Neck: supple, Trachea midline Respiratory/Chest: Normal breath sounds, CTA Cardiovascular: S1, S2, No murmur Abdomen/GI:Soft, Non tender, Bowel sounds present Extremities/Musculoskeletal:normal inspection, B/L LE edema, Right Foot in dressing, drain removed Neurologic/Psych:AAOX3, grossly no focal neurological deficits Skin: normal color, warm Results & Data Results & Data ([facility]) Vital Signs (Past 12 Hours) Vital Signs Temp Pulse Pulse Resp BP Pulse Ox 08/27/20 19:13 36.8 C 60 18 128/73 96 08/27/20 16:00 87 08/27/20 15:29 37.1 C 61 17 115/70 97 08/27/20 11:12 36.9 C 70 17 112/75 97
[2020-08-28] MEDS: metroNIDAZOLE 500 MG/100 ML BAG IV SCH ×3 (05:43→22:27)
[2020-08-28] MEDS: CLOPIDOGREL BISULFATE 75 MG TAB PO SCH (07:42)
[2020-08-28] MEDS: NYSTATIN POWDER 15GM BTL EXT SCH ×2 (07:43→20:47)
[2020-08-28] MEDS: DOCUSATE SODIUM 100 MG CAP PO SCH ×2 (07:43→20:47)
[2020-08-28] MEDS: ADVANCED PROBIOTIC 1250 MG CAPSULE PO SCH (07:43)
[2020-08-28 07:44] LABS: INR 1.3 (0.9-1.1)
[2020-08-28] MEDS: TRIAMCINOLONE ACET 0.1% CR 15 GM TUBE TOP SCH ×2 (07:44→20:47)
[2020-08-28] MEDS: INSULIN ASPART 100 UNITS/ML 3 ML PEN SC SCH ×4 (08:43→20:52)
[2020-08-28] MEDS: INSULIN GLARGINE SOLOSTAR 100 UNITS/ML 3 ML PEN SC SCH ×2 (08:43→20:51)
[2020-08-28] MEDS: MAGNESIUM OXIDE 400 MG TAB PO SCH ×2 (08:45→20:49)
--- NOTE | 2020-08-28 11:50 | XRay Report ---
XR chest 1V portable CLINICAL HISTORY: Left PICC line placement COMPARISON STUDY: 08/11/2020 FINDINGS: The heart is enlarged. 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 There is no failure. There is no focal pulmonary consolidation. There is been interval placement of a left-sided PICC catheter the tip of which terminates within the superior vena cava just inferior to the azygous level. There is no failure. There is no focal pulmonary consolidation.[ IMPRESSION: Interval placement of a left-sided PICC catheter the tip of which projects over the super ior vena cava, just inferior to the azygos level ACT 112: Negative or not required by law. Electronically signed by: Timo Delgado M.D. 08/28/2020 11:48 AM
[2020-08-28] MEDS: cefTRIAXone SODIUM 2,000 MG in DEXTROSE 5% 50 ML IV SCH (12:15)
[2020-08-28] MEDS: WARFARIN SOD 5 MG TAB PO SCH (15:45)
--- NOTE | 2020-08-28 17:24 | Hospitalist Progress Note ---
Date of Service August 28, 2020 Assessment & Plan (1) Necrotizing fasciitis: (2) Osteomyelitis of toe: (3) Ulcer of left great toe due to diabetes mellitus: Plan: Right great toe osteomyelitis Necrotizing fasciitis S/P right great toe amputation on 08/12/2020 --Iggy CT:Soft tissue gas present within the tissues surrounding the proximal distal phalanges of the great toe. The findings are consistent with a necrotizing fasciitis. Intramedullary gas involving the distal phalanx of the great toe and distal aspect of the proximal phalanx the great toe. This is an ancillary finding reported in osteomyelitis, and therefore osteomyelitis is strongly suspected. Appreciate orthopedics input Blood Cx:No growth to date ID consulted Now s/p debridement given demarcation of wound (08/21/20) w/ Dr. Weiss - osteomyelitis identified, and forefoot abscess Restart IV antibiotics, follow cultures from the OR Orthopedics following Patient on IV vancomycin and Zosyn for broad coverage after notified by orthopedics with findings from OR Now culture from OR shows E. coli and group B strep, stopped Vanco and Zosyn and switched to Rocephin and Flagyl, Case discussed with ID today recommended IV Rocephin x6 weeks and to discontinue the Flagyl since no anaerobes show only culture Consent for PICC line or midline signed this morning IV team placed IV access for outpatient antibiotic infusion PAD poor wound healing Obtained AKOSUA to assess circulation - Noncompressible peripheral arteries. Therefore AKOSUA's cannot be calculated. Follows w/ Dr. Castro (vascular) as outpatient, Dr. Castro consulted, arterial Doppler of right lower extremity ordered Right lower extremity arterial duplex with significant tibial disease and reduced toe pressure of 44 mmHg. Concerned current blood supply is inadequate to heal surgical wound. S/P surgical debridement 08/24/2020 Actual Procedures p Ultrasound Vascular Access - Roger Castro MD s Angio Extremity Unilateral - Roger Castro MD s Tibioper Balloon Stent Each Additional - Roger Castro MD s Tibioperoneal Balloon Stent - Roger Castro MD Summary: 1. Right lower extremity --widely patent iliacs to popliteal. Severe heavily calcified disease involving proximal EVELINE, TPT and peroneal arteries. 2. 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 3. Successful bifurcation stenting of heavily calcified anterior tibial, tibioperoneal trunk with 3 drug-eluting stents (3.5 x 38 mm [place] in EVELINE, 4.0 x 30 + 3.5 x 26 mm Jacques overlapping from popliteal into THREAD MARKER). 4. Successful angioplasty of proximal peroneal with 2.5 balloon. Final result: Brisk right lower extremity two-vessel runoff into the foot. Recommendations: Continue DAPT with ASA/Clopidogrel for 3 months Follow-up non-invasive vascular testing in 2 weeks. JORGE on CKD III Baseline creatinine 1.5-1.9 as per records, however Cr has been lower while inpt - then incr. Cr 1.4 (08/23) -Possibly pre-renal, possibly secondary to combination of Vanco and Zosyn for osteomyelitis and abscess -provided IV fluids, stopped Vanco Zosyn -reviewed cultures, and discussed with pharmacy, started on Rocephin and Flagyl - Cr improved to 1.2 (08/24) - cont. to monitor BMP UTI Urine Cx: E. coli Received Rocephin on Keflex as above DM II HbA1C:6.9 Hold Home regimen Continue Insulin therapy Monitor BGs Atrial fibrillation Rate control Continue Coumadin for anticoagulation Monitor INR: 1.3 Hold Coumadin given plan for debridement on Monday IV heparin, now on hold - restart 18-24 hrs after surgery Discussed with Dr. Castro, after his procedure on August 24, recommend to restart warfarin in the evening, no need for more IV heparin bridging H/O CVA Chronic right-sided numbness as per patient Continue aspirin, statin H/O CHF Chronic venous stasis insufficiency Continue home diuretics Monitor volume status DVT Px: On Coumadin with INR 1.3 Code Status :Full code Disposition: Waiting for placement to SNF Admission and Anticipated Discharge Date Admission Date: August 11, 2020 Subjective Patient was seen and examined for follow-up of toe osteomyelitis Lying in bed with no distress watching TV He had PICC line placement today Denies any chest pain, palpitation, dizziness, shortness of breath. Physical Exam Physical Exam: General Appearance: Moderately built and nourished, no apparent distress Head: normocephalic, Atraumatic Eyes: normal inspection, EOMI Neck: supple, Trachea midline Respiratory/Chest: Normal breath sounds, CTA Cardiovascular: S1, S2, No murmur Abdomen/GI:Soft, Non tender, Bowel sounds present Extremities/Musculoskeletal:normal inspection, B/L LE edema, Right Foot in dressing, drain removed Neurologic/Psych:AAOX3, grossly no focal neurological deficits Skin: normal color, warm Results & Data Results & Data ([facility]) Vital Signs (Past 12 Hours) Vital Signs Temp Pulse Resp BP 08/28/20 15:51 37.0 C 62 16 105/63 08/28/20 12:00 36.5 C 76 18 119/72 08/28/20 08:00 36.8 C 75 18 146/74 H
[2020-08-28] MEDS: TAMSULOSIN HCL 0.4 MG CAP PO SCH (20:48)
[2020-08-28] MEDS: MULTIVITAMIN CHEWABLE TAB PO SCH (20:48)
[2020-08-28] MEDS: ASPIRIN 81 MG ECTAB PO SCH (20:49)
[2020-08-28] MEDS: CHOLECALCIFEROL 1,000 UNITS 25 MCG TAB PO SCH (20:49)
[2020-08-28] MEDS: ATORVASTATIN 40 MG TAB PO SCH (20:49)
[2020-08-28] MEDS: CYANOCOBALAMIN 500 MCG TABLET (VITAMIN B-12) PO SCH (20:49)
[2020-08-29 04:58] LABS: Basophils # (auto) 0.01 K/uL (0-0.2); Basophils % (auto) 0.2 %; Eosinophils # (auto) 0.14 K/uL (0-0.5); Eosinophils % (auto) 2.8 %; Hematocrit (blood only) 39.3 % (42-52); Hemoglobin 13.1 g/dL (14.0-18.0); Lymphocytes # (auto) 1.26 K/uL (1.2-3.4); Mean Corpuscular Hemoglobin 31.3 pg (25-34); Mean Corpuscular Hgb Conc 33.3 g/dL (32-36); Mean Platelet Volume 10.3 fL (7.4-10.4); Monocytes # (auto) 0.61 K/uL (0.11-0.59); Monocytes % (auto) 12.1 %; Neutrophils # (auto) 3.01 K/uL (1.4-6.5); Neutrophils % (auto) 59.9 %; Platelet Count 219 K/uL (130-400); RDW Coefficient of Variation 14.7 % (11.5-14.5); RDW Standard Deviation 49.9 fL (36.4-46.3); Red Blood Count 4.18 M/uL (4.7-6.1); White Blood Count 5.03 K/uL (4.8-10.8)
[2020-08-29 05:11] LABS: INR 1.4 (0.9-1.1); Prothrombin Time 13.8 Seconds (9.0-12.0)
[2020-08-29] MEDS: metroNIDAZOLE 500 MG/100 ML BAG IV SCH ×3 (06:21→21:34)
[2020-08-29] MEDS: INSULIN ASPART 100 UNITS/ML 3 ML PEN SC SCH ×4 (08:14→21:42)
[2020-08-29] MEDS: INSULIN GLARGINE SOLOSTAR 100 UNITS/ML 3 ML PEN SC SCH ×2 (08:16→21:40)
[2020-08-29] MEDS: TRIAMCINOLONE ACET 0.1% CR 15 GM TUBE TOP SCH ×2 (08:18→21:31)
[2020-08-29] MEDS: DOCUSATE SODIUM 100 MG CAP PO SCH ×2 (08:18→21:31)
[2020-08-29] MEDS: MAGNESIUM OXIDE 400 MG TAB PO SCH ×2 (08:18→21:33)
[2020-08-29] MEDS: FUROSEMIDE 40 MG TAB PO SCH (08:19)
[2020-08-29] MEDS: NYSTATIN POWDER 15GM BTL EXT SCH ×2 (08:19→21:33)
[2020-08-29] MEDS: ADVANCED PROBIOTIC 1250 MG CAPSULE PO SCH (08:19)
[2020-08-29] MEDS: CLOPIDOGREL BISULFATE 75 MG TAB PO SCH (08:19)
[2020-08-29] MEDS: cefTRIAXone SODIUM 2,000 MG in DEXTROSE 5% 50 ML IV SCH (11:49)
--- NOTE | 2020-08-29 14:37 | Hospitalist Progress Note ---
Date of Service August 29, 2020 Assessment & Plan (1) Necrotizing fasciitis: (2) Osteomyelitis of toe: (3) Ulcer of left great toe due to diabetes mellitus: Plan: Right great toe osteomyelitis Necrotizing fasciitis S/P right great toe amputation on 08/12/2020 --Iggy CT:Soft tissue gas present within the tissues surrounding the proximal distal phalanges of the great toe. The findings are consistent with a necrotizing fasciitis. Intramedullary gas involving the distal phalanx of the great toe and distal aspect of the proximal phalanx the great toe. This is an ancillary finding reported in osteomyelitis, and therefore osteomyelitis is strongly suspected. Appreciate orthopedics input Blood Cx:No growth to date ID consulted Now s/p debridement given demarcation of wound (08/21/20) w/ Dr. Weiss - osteomyelitis identified, and forefoot abscess Restart IV antibiotics, follow cultures from the OR Orthopedics following Patient on IV vancomycin and Zosyn for broad coverage after notified by orthopedics with findings from OR Now culture from OR shows E. coli and group B strep, stopped Vanco and Zosyn and switched to Rocephin and Flagyl, Case discussed with ID today recommended IV Rocephin x6 weeks and to discontinue the Flagyl since no anaerobes show only culture Consent for PICC line or midline signed this morning IV team placed IV access for outpatient antibiotic infusion Waiting for placement PAD poor wound healing Obtained AKOSUA to assess circulation - Noncompressible peripheral arteries. Therefore AKOSUA's cannot be calculated. Follows w/ Dr. Castro (vascular) as outpatient, Dr. Castro consulted, arterial Doppler of right lower extremity ordered Right lower extremity arterial duplex with significant tibial disease and reduced toe pressure of 44 mmHg. Concerned current blood supply is inadequate to heal surgical wound. S/P surgical debridement 08/24/2020 Actual Procedures p Ultrasound Vascular Access - Roger Castro MD s Angio Extremity Unilateral - Roger Castro MD s Tibioper Balloon Stent Each Additional - Roger Castro MD s Tibioperoneal Balloon Stent - Roger Castro MD Summary: 1. Right lower extremity --widely patent iliacs to popliteal. Severe heavily calcified disease involving proximal EVELINE, TPT and peroneal arteries. 2. 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 3. Successful bifurcation stenting of heavily calcified anterior tibial, tibioperoneal trunk with 3 drug-eluting stents (3.5 x 38 mm Jacques in EVELINE, 4.0 x 30 + 3.5 x 26 mm Jacques overlapping from popliteal into OCEAN TRANSPORTATION INTERMEDIARY). 4. Successful angioplasty of proximal peroneal with 2.5 balloon. Final result: Brisk right lower extremity two-vessel runoff into the foot. Recommendations: Continue DAPT with ASA/Clopidogrel for 3 months Follow-up non-invasive vascular testing in 2 weeks. JORGE on CKD III Baseline creatinine 1.5-1.9 as per records, however Cr has been lower while inpt - then incr. Cr 1.4 (08/23) -Possibly pre-renal, possibly secondary to combination of Vanco and Zosyn for osteomyelitis and abscess -provided IV fluids, stopped Vanco Zosyn -reviewed cultures, and discussed with pharmacy, started on Rocephin and Flagyl - Cr improved to 1.2 (08/24) - cont. to monitor BMP UTI Urine Cx: E. coli Received Rocephin on Keflex as above DM II HbA1C:6.9 Hold Home regimen Continue Insulin therapy Monitor BGs Atrial fibrillation Rate control Continue Coumadin for anticoagulation Monitor INR: 1.4 today Hold Coumadin given plan for debridement on Monday IV heparin, now on hold - restart 18-24 hrs after surgery Discussed with Dr. Castro, after his procedure on August 24, recommend to restart warfarin in the evening, no need for more IV heparin bridging H/O CVA Chronic right-sided numbness as per patient Continue aspirin, statin H/O CHF Chronic venous stasis insufficiency Continue home diuretics Monitor volume status DVT Px: On Coumadin with INR 1.4 Code Status :Full code Disposition: Waiting for placement to SNF Admission and Anticipated Discharge Date Admission Date: August 11, 2020 Subjective Patient was seen and examined for follow-up of toe osteomyelitis Lying in bed with no distress eating his lunch He said that he feels ok waiting for placement to rehab Denies any chest pain, palpitation, dizziness, shortness of breath. Physical Exam Physical Exam: General Appearance: Moderately built and nourished, no apparent distress Head: normocephalic, Atraumatic Eyes: normal inspection, EOMI Neck: supple, Trachea midline Respiratory/Chest: Normal breath sounds, CTA Cardiovascular: S1, S2, No murmur Abdomen/GI:Soft, Non tender, Bowel sounds present Extremities/Musculoskeletal:normal inspection, B/L LE edema, Right Foot in dressing, drain removed Neurologic/Psych:AAOX3, grossly no focal neurological deficits Skin: normal color, warm Results & Data Results & Data ([facility]) Vital Signs (Past 12 Hours) Vital Signs Temp Pulse Pulse Resp BP Pulse Ox 08/29/20 12:16 36.8 C 64 18 131/79 95 08/29/20 08:00 36.8 C 60 63 18 134/77 100 08/29/20 03:27 36.9 C 65 18 128/78 98
[2020-08-29] MEDS: WARFARIN SOD 5 MG TAB PO SCH (16:55)
[2020-08-29] MEDS: ASPIRIN 81 MG ECTAB PO SCH (21:31)
[2020-08-29] MEDS: ATORVASTATIN 40 MG TAB PO SCH (21:32)
[2020-08-29] MEDS: MULTIVITAMIN CHEWABLE TAB PO SCH (21:32)
[2020-08-29] MEDS: CYANOCOBALAMIN 500 MCG TABLET (VITAMIN B-12) PO SCH (21:32)
[2020-08-29] MEDS: CHOLECALCIFEROL 1,000 UNITS 25 MCG TAB PO SCH (21:32)
[2020-08-29] MEDS: TAMSULOSIN HCL 0.4 MG CAP PO SCH (21:32)
[2020-08-30 05:01] LABS: Hematocrit (blood only) 39.3 % (42-52); Hemoglobin 12.8 g/dL (14.0-18.0); Mean Corpuscular Hemoglobin 30.2 pg (25-34); Mean Corpuscular Hgb Conc 32.6 g/dL (32-36); Mean Corpuscular Volume 92.7 fL (80-100); Mean Platelet Volume 10.5 fL (7.4-10.4); Platelet Count 206 K/uL (130-400); RDW Coefficient of Variation 14.8 % (11.5-14.5); RDW Standard Deviation 49.8 fL (36.4-46.3); Red Blood Count 4.24 M/uL (4.7-6.1); White Blood Count 4.71 K/uL (4.8-10.8)
[2020-08-30 05:09] LABS: INR 1.5 (0.9-1.1); Prothrombin Time 15.2 Seconds (9.0-12.0)
[2020-08-30 05:41] LABS: BUN Creatinine Ratio 9.3 (10-20); Calcium 8.3 mg/dl (8.5-10.1); Creatinine Clr Calc Pharmacy 69.9 ml/min; Est GFR (African American) 69.5 ml/min; Est GFR (Non-African American) 59.9 ml/min; Potassium 3.6 mmol/L (3.5-5.1)
[2020-08-30] MEDS: metroNIDAZOLE 500 MG/100 ML BAG IV SCH ×3 (06:15→22:09)
[2020-08-30] MEDS: INSULIN ASPART 100 UNITS/ML 3 ML PEN SC SCH ×4 (07:59→20:53)
[2020-08-30] MEDS: INSULIN GLARGINE SOLOSTAR 100 UNITS/ML 3 ML PEN SC SCH ×2 (08:01→20:54)
[2020-08-30] MEDS: TRIAMCINOLONE ACET 0.1% CR 15 GM TUBE TOP SCH ×2 (08:02→20:51)
[2020-08-30] MEDS: ADVANCED PROBIOTIC 1250 MG CAPSULE PO SCH (08:02)
[2020-08-30] MEDS: DOCUSATE SODIUM 100 MG CAP PO SCH ×2 (08:02→20:50)
[2020-08-30] MEDS: MAGNESIUM OXIDE 400 MG TAB PO SCH ×2 (08:02→20:49)
[2020-08-30] MEDS: CLOPIDOGREL BISULFATE 75 MG TAB PO SCH (08:02)
[2020-08-30] MEDS: FUROSEMIDE 40 MG TAB PO SCH (08:02)
[2020-08-30] MEDS: NYSTATIN POWDER 15GM BTL EXT SCH ×2 (08:02→20:51)
[2020-08-30] MEDS: cefTRIAXone SODIUM 2,000 MG in DEXTROSE 5% 50 ML IV SCH (12:32)
--- NOTE | 2020-08-30 13:59 | Hospitalist Progress Note ---
Date of Service August 30, 2020 Assessment & Plan (1) Necrotizing fasciitis: (2) Osteomyelitis of toe: (3) Ulcer of left great toe due to diabetes mellitus: Plan: Right great toe osteomyelitis Necrotizing fasciitis S/P right great toe amputation on 08/12/2020 --Iggy CT:Soft tissue gas present within the tissues surrounding the proximal distal phalanges of the great toe. The findings are consistent with a necrotizing fasciitis. Intramedullary gas involving the distal phalanx of the great toe and distal aspect of the proximal phalanx the great toe. This is an ancillary finding reported in osteomyelitis, and therefore osteomyelitis is strongly suspected. Appreciate orthopedics input Blood Cx:No growth to date ID consulted Now s/p debridement given demarcation of wound (08/21/20) w/ Dr. Weiss - osteomyelitis identified, and forefoot abscess Restart IV antibiotics, follow cultures from the OR Orthopedics following Patient on IV vancomycin and Zosyn for broad coverage after notified by orthopedics with findings from OR Now culture from OR shows E. coli and group B strep, stopped Vanco and Zosyn and switched to Rocephin and Flagyl, Case discussed with ID today recommended IV Rocephin x6 weeks and to discontinue the Flagyl since no anaerobes show only culture Consent for PICC line or midline signed this morning IV team placed IV access for outpatient antibiotic infusion Waiting for placement PAD poor wound healing Obtained AKOSUA to assess circulation - Noncompressible peripheral arteries. Therefore AKOSUA's cannot be calculated. Follows w/ Dr. Castro (vascular) as outpatient, Dr. Castro consulted, arterial Doppler of right lower extremity ordered Right lower extremity arterial duplex with significant tibial disease and reduced toe pressure of 44 mmHg. Concerned current blood supply is inadequate to heal surgical wound. S/P surgical debridement 08/24/2020 Actual Procedures p Ultrasound Vascular Access - Roger Castro MD s Angio Extremity Unilateral - Roger Castro MD s Tibioper Balloon Stent Each Additional - Roger Castro MD s Tibioperoneal Balloon Stent - Roger Castro MD Summary: 1. Right lower extremity --widely patent iliacs to popliteal. Severe heavily calcified disease involving proximal EVELINE, TPT and peroneal arteries. 2. 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 3. Successful bifurcation stenting of heavily calcified anterior tibial, tibioperoneal trunk with 3 drug-eluting stents (3.5 x 38 mm Jacques in EVELINE, 4.0 x 30 + 3.5 x 26 mm Jacques overlapping from popliteal into PERINATAL DIRECTOR). 4. Successful angioplasty of proximal peroneal with 2.5 balloon. Final result: Brisk right lower extremity two-vessel runoff into the foot. Recommendations: Continue DAPT with ASA/Clopidogrel for 3 months Follow-up non-invasive vascular testing in 2 weeks. JORGE on CKD III Baseline creatinine 1.5-1.9 as per records, however Cr has been lower while inpt - then incr. Cr 1.4 (08/23) -Possibly pre-renal, possibly secondary to combination of Vanco and Zosyn for osteomyelitis and abscess -provided IV fluids, stopped Vanco Zosyn -reviewed cultures, and discussed with pharmacy, started on Rocephin and Flagyl - Cr improved to 1.2 (08/24) - cont. to monitor BMP UTI Urine Cx: E. coli Received Rocephin on Keflex as above DM II HbA1C:6.9 Hold Home regimen Continue Insulin therapy Monitor BGs Atrial fibrillation Rate control Continue Coumadin for anticoagulation Coumadin was held for debridement during the hospital course IV heparin, now on hold - restart 18-24 hrs after surgery Discussed with Dr. Castro, after his procedure on August 24, recommend to restart warfarin in the evening, no need for more IV heparin bridging INR 1.5 today, continue coumadin H/O CVA Chronic right-sided numbness as per patient Continue aspirin, statin H/O CHF Chronic venous stasis insufficiency Continue home diuretics Monitor volume status DVT Px: On Coumadin with INR 1.5 Code Status :Full code Disposition: Waiting for placement to SNF Admission and Anticipated Discharge Date Admission Date: August 11, 2020 Subjective Patient was seen and examined for follow-up of toe osteomyelitis Lying in bed with no distress watching TV He said that he feels ok Continue waiting for placement to rehab Denies any chest pain, palpitation, dizziness, shortness of breath. Physical Exam Physical Exam: General Appearance: Moderately built and nourished, no apparent distress Head: normocephalic, Atraumatic Eyes: normal inspection, EOMI Neck: supple, Trachea midline Respiratory/Chest: Normal breath sounds, CTA Cardiovascular: S1, S2, No murmur Abdomen/GI:Soft, Non tender, Bowel sounds present Extremities/Musculoskeletal:normal inspection, B/L LE edema, Right Foot in dressing, drain removed Neurologic/Psych:AAOX3, grossly no focal neurological deficits Skin: normal color, warm Results & Data Results & Data ([facility]) Vital Signs (Past 12 Hours) Vital Signs Temp Pulse Pulse Resp BP Pulse Ox 08/30/20 11:47 36.9 C 60 18 130/80 100 08/30/20 08:14 36.9 C 61 20 115/63 96 08/30/20 07:00 60 08/30/20 04:13 36.8 C 62 17 126/72 95
[2020-08-30] MEDS: WARFARIN SOD 5 MG TAB PO SCH (16:32)
[2020-08-30] MEDS: CHOLECALCIFEROL 1,000 UNITS 25 MCG TAB PO SCH (20:50)
[2020-08-30] MEDS: TAMSULOSIN HCL 0.4 MG CAP PO SCH (20:50)
[2020-08-30] MEDS: ATORVASTATIN 40 MG TAB PO SCH (20:50)
[2020-08-30] MEDS: MULTIVITAMIN CHEWABLE TAB PO SCH (20:50)
[2020-08-30] MEDS: CYANOCOBALAMIN 500 MCG TABLET (VITAMIN B-12) PO SCH (20:51)
[2020-08-30] MEDS: ASPIRIN 81 MG ECTAB PO SCH (20:51)
[2020-08-31] MEDS: metroNIDAZOLE 500 MG/100 ML BAG IV SCH ×3 (06:17→23:07)
[2020-08-31 07:47] LABS: INR 1.8 (0.9-1.1); Prothrombin Time 17.6 Seconds (9.0-12.0)
[2020-08-31] MEDS: INSULIN ASPART 100 UNITS/ML 3 ML PEN SC SCH ×4 (07:59→20:39)
[2020-08-31] MEDS: FUROSEMIDE 20 MG TAB PO SCH (08:00)
[2020-08-31] MEDS: CLOPIDOGREL BISULFATE 75 MG TAB PO SCH (08:00)
[2020-08-31] MEDS: DOCUSATE SODIUM 100 MG CAP PO SCH ×2 (08:00→20:39)
[2020-08-31] MEDS: INSULIN GLARGINE SOLOSTAR 100 UNITS/ML 3 ML PEN SC SCH ×2 (08:01→20:39)
[2020-08-31] MEDS: NYSTATIN POWDER 15GM BTL EXT SCH ×2 (08:02→20:36)
[2020-08-31] MEDS: MAGNESIUM OXIDE 400 MG TAB PO SCH ×2 (08:02→20:38)
[2020-08-31] MEDS: ADVANCED PROBIOTIC 1250 MG CAPSULE PO SCH (08:02)
[2020-08-31] MEDS: TRIAMCINOLONE ACET 0.1% CR 15 GM TUBE TOP SCH ×2 (08:03→20:36)
[2020-08-31] MEDS: cefTRIAXone SODIUM 2,000 MG in DEXTROSE 5% 50 ML IV SCH (11:58)
--- NOTE | 2020-08-31 14:16 | Hospitalist Progress Note ---
Date of Service August 31, 2020 Assessment & Plan (1) Necrotizing fasciitis: (2) Osteomyelitis of toe: (3) Ulcer of left great toe due to diabetes mellitus: Plan: Right great toe osteomyelitis Necrotizing fasciitis S/P right great toe amputation on 08/12/2020 --Iggy CT:Soft tissue gas present within the tissues surrounding the proximal distal phalanges of the great toe. The findings are consistent with a necrotizing fasciitis. Intramedullary gas involving the distal phalanx of the great toe and distal aspect of the proximal phalanx the great toe. This is an ancillary finding reported in osteomyelitis, and therefore osteomyelitis is strongly suspected. Appreciate orthopedics input Blood Cx:No growth to date ID consulted Now s/p debridement given demarcation of wound (08/21/20) w/ Dr. Weiss - osteomyelitis identified, and forefoot abscess Restart IV antibiotics, follow cultures from the OR Orthopedics following Patient on IV vancomycin and Zosyn for broad coverage after notified by orthopedics with findings from OR Now culture from OR shows E. coli and group B strep, stopped Vanco and Zosyn and switched to Rocephin and Flagyl, Case discussed with ID today recommended IV Rocephin x6 weeks and to discontinue the Flagyl since no anaerobes show only culture Consent for PICC line or midline signed IV team placed IV access for outpatient antibiotic infusion Waiting for placement PAD poor wound healing Obtained AKOSUA to assess circulation - Noncompressible peripheral arteries. Therefore AKOSUA's cannot be calculated. Follows w/ Dr. Castro (vascular) as outpatient, Dr. Castro consulted, arterial Doppler of right lower extremity ordered Right lower extremity arterial duplex with significant tibial disease and reduced toe pressure of 44 mmHg. Concerned current blood supply is inadequate to heal surgical wound. S/P surgical debridement 08/24/2020 Actual Procedures p Ultrasound Vascular Access - Roger Castro MD s Angio Extremity Unilateral - Roger Castro MD s Tibioper Balloon Stent Each Additional - Roger Castro MD s Tibioperoneal Balloon Stent - Roger Castro MD Summary: 1. Right lower extremity --widely patent iliacs to popliteal. Severe heavily calcified disease involving proximal [place], TPT and peroneal arteries. 2. 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 3. Successful bifurcation stenting of heavily calcified anterior tibial, tibioperoneal trunk with 3 drug-eluting stents (3.5 x 38 mm Jacques in EVELINE, 4.0 x 30 + 3.5 x 26 mm [place] overlapping from popliteal into AUTO SELF SERVICE STATION ATTENDANT). 4. Successful angioplasty of proximal peroneal with 2.5 balloon. Final result: Brisk right lower extremity two-vessel runoff into the foot. Recommendations: Continue DAPT with ASA/Clopidogrel for 3 months Follow-up non-invasive vascular testing in 2 weeks. JORGE on CKD III Baseline creatinine 1.5-1.9 as per records, however Cr has been lower while inpt - then incr. Cr 1.4 (08/23) -Possibly pre-renal, possibly secondary to combination of Vanco and Zosyn for osteomyelitis and abscess -provided IV fluids, stopped Vanco Zosyn -reviewed cultures, and discussed with pharmacy, started on Rocephin and Flagyl - Cr improved to 1.2 (08/24) - cont. to monitor BMP UTI Urine Cx: E. coli Received Rocephin on Keflex as above DM II HbA1C:6.9 Hold Home regimen Continue Insulin therapy Monitor BGs Atrial fibrillation Rate control Continue Coumadin for anticoagulation Coumadin was held for debridement during the hospital course IV heparin, now on hold - restart 18-24 hrs after surgery Discussed with Dr. Castro, after his procedure on August 24, recommend to restart warfarin in the evening, no need for more IV heparin bridging INR 1.8 today, continue coumadin H/O CVA Chronic right-sided numbness as per patient Continue aspirin, statin H/O CHF Chronic venous stasis insufficiency Continue home diuretics Monitor volume status DVT Px: On Coumadin with INR 1.8 Code Status :Full code Disposition: Waiting for placement to SNF Admission and Anticipated Discharge Date Admission Date: August 11, 2020 Subjective Patient was seen and examined for follow-up of toe osteomyelitis Sitting in chair with no distress eating breakfast Pt said that he feels OK Waiting for placement to rehab Denies any chest pain, palpitation, dizziness, shortness of breath. Physical Exam Physical Exam: General Appearance: Moderately built and nourished, no apparent distress Head: normocephalic, Atraumatic Eyes: normal inspection, EOMI Neck: supple, Trachea midline Respiratory/Chest: Normal breath sounds, CTA Cardiovascular: S1, S2, No murmur Abdomen/GI:Soft, Non tender, Bowel sounds present Extremities/Musculoskeletal:normal inspection, B/L LE edema, Right Foot in dressing, drain removed Neurologic/Psych:AAOX3, grossly no focal neurological deficits Skin: normal color, warm Results & Data Results & [facility] ([facility]) Vital Signs (Past 12 Hours) Vital Signs Temp Pulse Resp BP Pulse Ox 08/31/20 11:16 36.5 C 62 18 117/76 97 08/31/20 07:34 36.6 C 68 18 128/79 95 08/31/20 04:05 36.5 C 61 17 118/67 96
[2020-08-31] MEDS: WARFARIN SOD 5 MG TAB PO SCH (16:59)
[2020-08-31] MEDS: TAMSULOSIN HCL 0.4 MG CAP PO SCH (20:37)
[2020-08-31] MEDS: CHOLECALCIFEROL 1,000 UNITS 25 MCG TAB PO SCH (20:37)
[2020-08-31] MEDS: CYANOCOBALAMIN 500 MCG TABLET (VITAMIN B-12) PO SCH (20:38)
[2020-08-31] MEDS: ATORVASTATIN 40 MG TAB PO SCH (20:38)
[2020-08-31] MEDS: ASPIRIN 81 MG ECTAB PO SCH (20:38)
[2020-08-31] MEDS: MULTIVITAMIN CHEWABLE TAB PO SCH (20:39)
[2020-08-31] MEDS: ACETAMINOPHEN 325 MG TAB PO PRN (23:12)
[2020-09-01] MEDS: metroNIDAZOLE 500 MG/100 ML BAG IV SCH (05:52)
[2020-09-01 06:41] LABS: INR 2.1 (0.9-1.1); Prothrombin Time 19.7 Seconds (9.0-12.0)
[2020-09-01] MEDS: DOCUSATE SODIUM 100 MG CAP PO SCH ×2 (08:46→22:13)
[2020-09-01] MEDS: MAGNESIUM OXIDE 400 MG TAB PO SCH ×2 (08:47→20:39)
[2020-09-01] MEDS: TRIAMCINOLONE ACET 0.1% CR 15 GM TUBE TOP SCH ×2 (08:47→20:38)
[2020-09-01] MEDS: NYSTATIN POWDER 15GM BTL EXT SCH ×2 (08:47→20:38)
[2020-09-01] MEDS: CLOPIDOGREL BISULFATE 75 MG TAB PO SCH (08:47)
[2020-09-01] MEDS: ADVANCED PROBIOTIC 1250 MG CAPSULE PO SCH (08:47)
[2020-09-01] MEDS: FUROSEMIDE 40 MG TAB PO SCH (08:48)
[2020-09-01] MEDS: INSULIN ASPART 100 UNITS/ML 3 ML PEN SC SCH ×4 (08:48→22:14)
[2020-09-01] MEDS: INSULIN GLARGINE SOLOSTAR 100 UNITS/ML 3 ML PEN SC SCH ×2 (08:48→22:15)
[2020-09-01] MEDS: cefTRIAXone SODIUM 2,000 MG in DEXTROSE 5% 50 ML IV SCH (12:10)
--- NOTE | 2020-09-01 15:50 | Hospitalist Progress Note ---
Date of Service September 01, 2020 Assessment & Plan (1) Necrotizing fasciitis: (2) Osteomyelitis of toe: (3) Ulcer of left great toe due to diabetes mellitus: Plan: Right great toe osteomyelitis Necrotizing fasciitis S/P right great toe amputation on 08/12/2020 --Iggy CT:Soft tissue gas present within the tissues surrounding the proximal distal phalanges of the great toe. The findings are consistent with a necrotizing fasciitis. Intramedullary gas involving the distal phalanx of the great toe and distal aspect of the proximal phalanx the great toe. This is an ancillary finding reported in osteomyelitis, and therefore osteomyelitis is strongly suspected. Appreciate orthopedics input Blood Cx:No growth to date ID consulted Now s/p debridement given demarcation of wound (08/21/20) w/ Dr. Weiss - osteomyelitis identified, and forefoot abscess Restart IV antibiotics, follow cultures from the OR Orthopedics following Patient on IV vancomycin and Zosyn for broad coverage after notified by orthopedics with findings from OR Now culture from OR shows E. coli and group B strep, stopped Vanco and Zosyn and switched to Rocephin and Flagyl, Case discussed with ID today recommended IV Rocephin x6 weeks and to discontinue the Flagyl since no anaerobes show only culture Consent for PICC line or midline signed IV team placed IV access for outpatient antibiotic infusion Will complete 6 weeks course of Rocephin IV (starting from 08/23/20) Waiting for placement PAD poor wound healing Obtained AKOSUA to assess circulation - Noncompressible peripheral arteries. Therefore AKOSUA's cannot be calculated. Follows w/ Dr. Castro (vascular) as outpatient, Dr. Castro consulted, arterial Doppler of right lower extremity ordered Right lower extremity arterial duplex with significant tibial disease and reduced toe pressure of 44 mmHg. Concerned current blood supply is inadequate to heal surgical wound. S/P surgical debridement Actual Procedures date on 08/24/20 p Ultrasound Vascular Access - Roger Castro MD s Angio Extremity Unilateral - Roger Castro MD s Tibioper Balloon Stent Each Additional - Roger Castro MD s Tibioperoneal Balloon Stent - Roger Castro MD Summary: 1. Right lower extremity --widely patent iliacs to popliteal. Severe heavily calcified disease involving proximal [place], TPT and peroneal arteries. 2. 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 3. Successful bifurcation stenting of heavily calcified anterior tibial, tibioperoneal trunk with 3 drug-eluting stents (3.5 x 38 mm [place] in EVELINE, 4.0 x 30 + 3.5 x 26 mm [place] overlapping from popliteal into ACOUSTIC WARFARE ANALYST). 4. Successful angioplasty of proximal peroneal with 2.5 balloon. Final result: Brisk right lower extremity two-vessel runoff into the foot. Recommendations: Continue DAPT with ASA/Clopidogrel for 3 months Follow-up non-invasive vascular testing in 2 weeks. JORGE on CKD III Baseline creatinine 1.5-1.9 as per records, however Cr has been lower while inpt - then incr. Cr 1.4 (08/23) -Possibly pre-renal, possibly secondary to combination of Vanco and Zosyn for osteomyelitis and abscess -provided IV fluids, stopped Vanco Zosyn -reviewed cultures, and discussed with pharmacy, started on Rocephin and Flagyl - Cr improved to 1.2 (08/24) - cont. to monitor BMP UTI Urine Cx: E. coli Received Rocephin on Keflex as above DM II HbA1C:6.9 Hold Home regimen Continue Insulin therapy Monitor BGs Atrial fibrillation Rate control Continue Coumadin for anticoagulation Coumadin was held for debridement during the hospital course IV heparin, now on hold - restart 18-24 hrs after surgery Discussed with Dr. Castro, after his procedure on August 24, recommend to restart warfarin in the evening, no need for more IV heparin bridging INR 2.1 today, continue Coumadin H/O CVA Chronic right-sided numbness as per patient Continue aspirin, statin H/O CHF Chronic venous stasis insufficiency Continue home diuretics Monitor volume status DVT Px: On Coumadin with INR 2.1 Code Status :Full code Disposition: Waiting for placement to SNF Admission and Anticipated Discharge Date Admission Date: August 11, 2020 Subjective Patient was seen and examined for follow-up of toe osteomyelitis Sitting in bed with no distress eating breakfast Pt said that he feels OK Waiting for placement to rehab to go [facility] Denies any chest pain, palpitation, dizziness, shortness of breath. Physical Exam Physical Exam: General Appearance: Moderately built and nourished, no apparent distress Head: normocephalic, Atraumatic Eyes: normal inspection, EOMI Neck: supple, Trachea midline Respiratory/Chest: Normal breath sounds, CTA Cardiovascular: S1, S2, No murmur Abdomen/GI:Soft, Non tender, Bowel sounds present Extremities/Musculoskeletal:normal inspection, B/L LE edema, Right Foot in dressing, drain removed Neurologic/Psych:AAOX3, grossly no focal neurological deficits Skin: normal color, warm Results & Data Results & Data ([facility]) Vital Signs (Past 12 Hours) Vital Signs Temp Pulse Resp BP Pulse Ox 09/01/20 15:25 36.5 C 64 18 120/75 97 09/01/20 12:11 36.5 C 77 18 133/79 94 09/01/20 07:17 36.8 C 62 20 120/73 95 09/01/20 03:57 36.3 C L 60 18 130/77 97
[2020-09-01] MEDS ORDERED: WARFARIN SOD 3 MG TAB PO SCH (16:00)
[2020-09-01] MEDS: CYANOCOBALAMIN 500 MCG TABLET (VITAMIN B-12) PO SCH (20:38)
[2020-09-01] MEDS: CHOLECALCIFEROL 1,000 UNITS 25 MCG TAB PO SCH (20:38)
[2020-09-01] MEDS: ASPIRIN 81 MG ECTAB PO SCH (20:38)
[2020-09-01] MEDS: ATORVASTATIN 40 MG TAB PO SCH (20:39)
[2020-09-01] MEDS: MULTIVITAMIN CHEWABLE TAB PO SCH (20:39)
[2020-09-01] MEDS: TAMSULOSIN HCL 0.4 MG CAP PO SCH (20:39)
[2020-09-02 05:43] LABS: Hematocrit (blood only) 40.9 % (42-52); Hemoglobin 13.6 g/dL (14.0-18.0); Mean Corpuscular Hemoglobin 31.1 pg (25-34); Mean Corpuscular Hgb Conc 33.3 g/dL (32-36); Mean Corpuscular Volume 93.4 fL (80-100); Mean Platelet Volume 10.1 fL (7.4-10.4); Platelet Count 223 K/uL (130-400); RDW Standard Deviation 50.7 fL (36.4-46.3); Red Blood Count 4.38 M/uL (4.7-6.1); White Blood Count 4.36 K/uL (4.8-10.8)
[2020-09-02 06:10] LABS: INR 2.3 (0.9-1.1); Prothrombin Time 21.6 Seconds (9.0-12.0)
[2020-09-02 06:19] LABS: BUN Creatinine Ratio 7.9 (10-20); Calcium 8.2 mg/dl (8.5-10.1); Creatinine Clr Calc Pharmacy 70.8 ml/min; Est GFR (African American) 68.1 ml/min; Est GFR (Non-African American) 58.8 ml/min; Potassium 3.6 mmol/L (3.5-5.1)
[2020-09-02] MEDS ORDERED: POTASSIUM CHLORIDE 10 MEQ TABCR PO STA (06:45)
[2020-09-02] MEDS: INSULIN ASPART 100 UNITS/ML 3 ML PEN SC SCH ×2 (08:07→11:52)
[2020-09-02] MEDS: INSULIN GLARGINE SOLOSTAR 100 UNITS/ML 3 ML PEN SC SCH (08:08)
[2020-09-02] MEDS: CLOPIDOGREL BISULFATE 75 MG TAB PO SCH (08:09)
[2020-09-02] MEDS: ADVANCED PROBIOTIC 1250 MG CAPSULE PO SCH (08:09)
[2020-09-02] MEDS: FUROSEMIDE 20 MG TAB PO SCH (08:09)
[2020-09-02] MEDS: DOCUSATE SODIUM 100 MG CAP PO SCH (08:09)
[2020-09-02] MEDS: MAGNESIUM OXIDE 400 MG TAB PO SCH (08:10)
[2020-09-02] MEDS: TRIAMCINOLONE ACET 0.1% CR 15 GM TUBE TOP SCH (08:10)
[2020-09-02] MEDS: NYSTATIN POWDER 15GM BTL EXT SCH (08:10)
[2020-09-02] MEDS: cefTRIAXone SODIUM 2,000 MG in DEXTROSE 5% 50 ML IV SCH (11:47)
--- NOTE | 2020-09-02 12:48 | Discharge Summary ---
Date of Service September 02, 2020 Admission HPI Per Admitting Provider 70 yo male c PMH A/C Renal Failure, LLE Cellulitis, CHF, Chronic Anemia, CKD III, CVA, DDD, Depression, DM II, DM Neuropathy, DLD, HTN, Hypomag, Hypophos, MINERVA, Obesity, Pacer, PAD, DFU, Sepsis, Tachy Danish syndrome, and AFIB who comes in to our ER c/o RLE swelling, redness, and foul odor. He noticed a small ulcer on his right great toe a few weeks ago. He was caring for it with some cream that he had been given from the wound center for previous infections. Over the weekend, the area got more erythematous and swollen, he said it just blew up. Today, it became quite red. Home health evaluated the foot today and were worried about cellulitis. They reported maggots in the wound. The patient had chills over the weekend. Principal Diagnosis Right great Toe Osteomyelitis Diabetic Ulcer of Right great toe Discharge Exam Constitutional WD/WN, vitals as above Eyes PERRL, conjunctivae normal, anicteric sclerae ENMT external ear and nose normal, oropharynx normal Neck trachea midline, no thyromegaly Respiratory normal respiratory effort, lungs clear to auscultation Cardiovascular Rate/Rhythm: regular rate and regular rhythm Gastrointestinal (Abdomen) normal bowel sounds, soft, nontender, no hepatosplenomegaly Musculoskeletal Extremities: + foot abnormality (Diabetic foot wound with osteomyelitis, s/p surgery, bandage present) Right Skin no rashes, warm and dry Neurologic PERRL, EOMI, accommodation nl, no face palsy, no dysarthria Psychiatric A+Ox3, euthymic affect Discharge Data Allergies Allergy/AdvReac Type Severity Reaction Status Date / Time No Known Allergies Allergy Verified 08/11/20 18:49 Consultations 08/11/20 18:30 ED Decision to Admit Stat 08/11/20 20:18 Consult Orthopedic Surgery Routine 08/13/20 08:26 Consult Infectious Diseases Routine 08/19/20 11:59 Consult Cardiology Routine Procedures Performed Operation Date: 08/12/20 07:00 Actual Procedures p Right Great Toe Amputation(Right) - Jhony Yung DO Operation Date: 08/21/20 07:00 Actual Procedures s Irrigation and Debridement Right Great Toe skin, tendon and fascia(Right) - Sal Prajapati, p Revision Amputation right great toe(Right) - Sal Prajapati DO Operation Date: 08/24/20 08:00 Actual Procedures p Ultrasound Vascular Access - Roger Castro MD s Angio Extremity Unilateral - Roger Castro MD s Tibioper Balloon Stent Each Additional - Roger Castro MD s Tibioperoneal Balloon Stent - MD sandie Rodriguez Placement Art Occlusive Device - Roger Castro MD Ordered Studies 08/11/20 17:40 CT foot RT wo con Stat 08/18/20 12:26 US ankle/brachial index comp Routine 08/19/20 16:52 US arterial duplex LE RT Routine 08/20/20 14:30 US ankle/brachial index ltd Routine 08/24/20 06:52 CL Cath Imgs for PACS use only Routine Hospital Course (1) Necrotizing fasciitis: (2) Osteomyelitis of toe: (3) Ulcer of left great toe due to diabetes mellitus: Right great toe osteomyelitis Necrotizing fasciitis S/P right great toe amputation on 08/12/2020 --Iggy CT:Soft tissue gas present within the tissues surrounding the proximal distal phalanges of the great toe. The findings are consistent with a necrotizing fasciitis. Intramedullary gas involving the distal phalanx of the great toe and distal aspect of the proximal phalanx the great toe. This is an ancillary finding reported in osteomyelitis, and therefore osteomyelitis is strongly suspected. Appreciate orthopedics input Blood Cx:No growth to date ID consulted s/p debridement given demarcation of wound (08/21/20) w/ Dr. Prajapati - osteomyelitis identified, and forefoot abscess Patient on IV vancomycin and Zosyn for broad coverage after notified by orthopedics with findings from OR culture from OR shows E. coli and group B strep, stopped Vanco and Zosyn and switched to Rocephin and Flagyl, Case discussed with ID recommended IV Rocephin x6 weeks PICC line placed Antibiotic started on 08/23/2020 Patient will need 5 more weeks of IV Rocephin, Accepted to be transferred to rehab today PAD Causing poor wound healing Noncompressible peripheral arteries. Therefore AKOSUA's cannot be calculated. Follows w/ Dr. Castro (vascular) as outpatient, Dr. Castro consulted, arterial Doppler of right lower extremity ordered Right lower extremity arterial duplex with significant tibial disease and reduced toe pressure of 44 mmHg. Actual Procedures date on 08/24/20 p Ultrasound Vascular Access - Roger Castro MD s Angio Extremity Unilateral - Roger Castro MD s Tibioper Balloon Stent Each Additional - Roger Castro MD s Tibioperoneal Balloon Stent - Roger Castro MD Summary: 1. Right lower extremity --widely patent iliacs to popliteal. Severe heavily calcified disease involving proximal EVELINE, TPT and peroneal arteries. 2. 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 3. Successful bifurcation stenting of heavily calcified anterior tibial, tibioperoneal trunk with 3 drug-eluting stents (3.5 x 38 mm [place] in EVELINE, 4.0 x 30 + 3.5 x 26 mm [place] overlapping from popliteal into AMORTIZATION SCHEDULE CLERK). 4. Successful angioplasty of proximal peroneal with 2.5 balloon. Final result: Brisk right lower extremity two-vessel runoff into the foot. Recommendations: discussed with Dr Castro -pt will be discharged on PO Plavix only ( no aspirin ) on Coumadin for Afib Follow-up non-invasive vascular testing in 2 weeks. JORGE on CKD III resolved Baseline creatinine 1.5-1.9 as per records, however Cr has been lower while inpt - then incr. Cr 1.4 (08/23) -Possibly pre-renal, possibly secondary to combination of Vanco and Zosyn for osteomyelitis and abscess -IV Vanco and Zosyn discontinued antibiotic transition to IV Rocephin -discharged on IV Rocephin for 5 more weeks - UTI Urine Cx: E. coli treated DM II HbA1C:6.9 resumed Home regimen received SC Insulin therapy in patient Atrial fibrillation Rate control Continue Coumadin for anticoagulation INR therapeutic H/O CVA Chronic right-sided numbness as per patient Continue Plavix , statin H/O CHF Chronic venous stasis insufficiency Continue home diuretics Monitor volume status DVT Px: On Coumadin Code Status :Full code Disposition: Transfer to Rehab today Total Time Total Time Spent Total Time Spent (In Minutes): approx 40 mins Discharge Plan Discharge Items Patient Disposition: Transfer Inpatient Rehab Fac Reason For Visit: R FOOT/LEG CELLULITIS Discharge Diagnosis: Right great Toe Osteomyelitis Diabetic Ulcer of Right great toe Condition on Discharge: Serious Activity: Per Instructions section Weightbearing: Right partial Weightbearing Comment: Heel touchdown for balance Non-emergency contact: Surgeon Call non-emergency contact if: you have any medication questions Follow-up/Referrals: Sal Prajapati DO [Surgeon] - (Follow up in 14 days from the day of surgery.) Jocelyne Desai DO [Primary Care Provider] - Diet: Carb Consistent or DM2 and Heart Healthy Addtl Attending Provider Instructions: Please take all medications as instructed on discharge list below. It is recommended that you follow-up with your primary care physician within 1-2 weeks of hospital discharge to ensure you are still doing well. Please call if you have any questions or problems. You can reach a [facility] hospitalist on duty at [facility] 24 hours a day by calling [phone] Lab work : Basic Metabolic Panel weekly while on IV Rocephin Antibiotic : IV Rocephin 2 gm IV Daily for 5 weeks -treatment for right great toe osteomyelitis PLEASE TAKE PROBIOTICS ( OVER THE COUNTER ) WHILE TAKING ANTIBIOTICS TO PREVENT DIARRHEA /LOOSE STOOL Addtl Mushroom Growth Media Mixer Provider Instructions: ACTIVITY RECOMMENDATIONS: Limitations: Heel weight bearing only if able to tolerate. SPECIAL CARE INSTRUCTIONS: * Some drainage onto the dressing is normal and is no cause for alarm. * Some swelling is natural especially after walking. * When resting, keep your foot elevated above the level of your heart. * Call [facility] if you notice: -Increased drainage -Fever over 101 degrees F -Severe constant pain BANDAGE: * Daily dressing changes * Keep bandage/cast dry at all times. . FOLLOW UP VISIT WITH DR. PRAJAPATI If appointment is not already scheduled: Please call [facility] after you get home today to schedule a follow-up appointment with Dr. Prajapati or Dr. Yung in 10 to 14 days from the day of surgery. At . Follow up with Dr Jhonatan Castro in 4-6 weeks Follow-up non-invasive vascular testing/lower extremity arterial Doppler in 2 weeks. Pending Studies at Discharge: No Stand-Alone Forms: My [facility] Skilled Items Patient informed of condition?: Yes DNR: No Discharge Level of Care: Acute rehab Communicable Disease: No Discharge Prognosis: Stable Lines: PICC Urinary Catheter: No Medications and DC Order Prescriptions: New Advanced Probiotic 625 mg (10 billion cell) Capsule 2 cap PO DAILY Qty: 0 RF: 0 nystatin [Nystop] 100,000 unit/gram Powder 1 applic EXT BID Qty: 0 RF: 0 ceftriaxone 2 gram recon soln 2 g IV DAILY 35 Days Qty: 25 RF: 1 clopidogrel 75 mg Tablet 75 mg PO QAM Qty: 0 RF: 0 Continued magnesium oxide 400 mg magnesium capsule 400 mg PO BID RF: 0 Flintstones Complete (iron) Tablet,Chewable 1 tab PO PM Qty: 0 RF: 0 atorvastatin 40 mg Tablet 40 mg PO PM Qty: 0 RF: 0 warfarin 3 mg Tablet 3 mg MOWEFR Qty: 0 RF: 0 cholecalciferol (vitamin D3) [Vitamin D3] 1,000 unit Capsule 2,000 unit PO PM RF: 0 tamsulosin 0.4 mg Capsule 0.4 mg PO PM RF: 0 cyanocobalamin (vitamin B-12) 1,000 mcg Tablet 1,000 mcg PO PM RF: 0 furosemide 20 mg tablet 20 mg PO MOWEFR RF: 0 furosemide 20 mg tablet 40 mg PO SUTUTHSA RF: 0 warfarin 3 mg Tablet 1.5 mg PO SUTUTHSA RF: 0 betamethasone dipropionate 0.05 % Ointment 1 applic TOPICAL DAILY PRN (Reason: Dry Skin) RF: 0 Jardiance 10 mg Tablet 10 mg PO DAILY RF: 0 losartan 50 mg tablet 50 mg PO HS RF: 0 triamcinolone acetonide 0.1 % Cream 1 applic TOPICAL BID RF: 0 Discontinued aspirin 81 mg Tablet,Delayed Release (Dr/Ec) 81 mg PO QPM RF: 0 doxycycline hyclate 100 mg capsule 100 mg PO BID RF: 0 Discharge Orders: Discharge Order (Routine); Ordered 09/02/20 Ordered By: Antoinette Barbosa/Other Patient Handouts: A1C, Managing Type 2 Diabetes Admission Data Admit Date/Time: 08/11/20 18:33 Attending Provider: Antoinette Spencer Admit Provider: Joseph Lizama Primary Care Provider: Jocelyne Desai Other Providers: Paresh Ingram ; [place] ; [facility] [place] ; Erlin Chow ; Joseph Lizama ; Walter Clark ; Thierry Aguayo ; Jen Juárez ; Raymond Lam I. ; Enrique Enriquez II ; Marycarmen Vega ; Greg Freeman ; Roger Castro ; Franco Wayne Other Interventions: Discharge Summary Assessment (RN) Last Done: 09/02/20 12:33
== END 2020-09-02 13:13 | DRG 616 ==
LOC: ED 16:48 → SUATTDRO 18:33 → 3E 18:33 → 2E 08-24 07:30
PROC: CLB.AEU (2020-08-24 08:00)

== ENCOUNTER 2022-10-07 14:41 | Inpatient (IN) ==
[2022-10-07 16:19] LABS: Appearance Urine Cloudy (Clear); Bacteria Urine Automated Negative (Negative); Blood Urine 2+ (Negative); Color Urine Dark Yellow; Glucose Urine UA 3+ (Negative); Ketones Urine Trace (Negative); Leukocyte Esterase Urine Negative (Negative); Nitrite Urine Negative (Negative); Protein Urine 3+ (Negative); Specific Gravity Urine 1.034 (1.000-1.030); Urobilinogen Urine Negative (Negative); pH Urine 5.5 (4.5-7.5)
[2022-10-07 16:21] LABS: Bilirubin Urine 1+ (Negative)
[2022-10-07 16:22] LABS: Basophils # (auto) 0.01 K/uL (0.00-0.20); Basophils % (auto) 0.1 %; Hematocrit (blood only) 39.9 % (42.0-52.0); Immature Granulocytes # (auto) 0.06 K/uL (0.01-0.20); Immature Granulocytes % (auto) 0.5 %; Lymphocytes # (auto) 0.47 K/uL (1.20-3.40); Lymphocytes % (auto) 4.1 %; Mean Corpuscular Hemoglobin 28.3 pg (25.0-34.0); Mean Corpuscular Hgb Conc 32.6 g/dL (32.0-36.0); Mean Corpuscular Volume 86.7 fL (80.0-100.0); Mean Platelet Volume 10.9 fL (9.4-12.4); Monocytes # (auto) 0.69 K/uL (0.11-0.59); Monocytes % (auto) 5.9 %; Neutrophils # (auto) 10.37 K/uL (1.40-6.50); Neutrophils % (auto) 89.4 %; Platelet Count 173 K/uL (130-400); RDW Standard Deviation 53.7 fL (36.4-46.3)
[2022-10-07 16:43] LABS: Albumin Globulin Ratio 0.8 (0.9-2); Albumin Level 3.3 gm/dl (3.4-5.0); BUN Creatinine Ratio 17.1 (10-20); Bilirubin,Total 1.5 mg/dl (0.2-1.0); Calcium 8.4 mg/dl (8.6-10.3); Creatinine Clr Calc Pharmacy 44.7 ml/min; Est GFR (African American) 39.7 ml/min; Est GFR (Non-African American) 34.3 ml/min; Globulin 3.9 gm/dl (2.5-4.0); Total Protein 7.2 gm/dl (6.0-8.3)
--- NOTE | 2022-10-07 16:48 | XRay Report ---
XR chest 1V portable CLINICAL HISTORY: Dyspnea TECHNIQUE: Single frontal radiograph of the chest was obtained. Comparison: Comparison is made to chest radiograph 08/28/2020 FINDINGS: Dual lead pacemaker is seen. Cardiomegaly is noted. The lungs are clear. No evidence of pleural effus ion or pneumothorax. IMPRESSION: No acute abnormalities and in particular no radiographic evidence of pneumonia. Stable cardiomegaly. ACT 112: Negative or not required by law. Electronically signed by: Clemente Sage M.D. 10/07/2022 4:47 PM
--- NOTE | 2022-10-07 16:57 | Electrocardiogram Report ---
Test Reason : Blood Pressure : / mmHG Vent. Rate : 070 BPM Atrial Rate : 300 BPM P-R Int : 000 ms QRS Dur : 192 ms QT Int : 472 ms P-R-T Axes : 000 -80 104 degrees QTc Int : 509 ms Ventricular-paced rhythm Underlying atrial fibrillation Abnormal ECG When compared with ECG of 11-AUG-2020 18:05, Vent. rate has increased BY 9 BPM Confirmed by Amarjit Oliveros ([id number]) on 10/07/2022 4:57:13 PM Referred By: Confirmed By:Amarjit Oliveros
--- NOTE | 2022-10-07 17:18 | Emergency Department Note ---
Impression & Plan Acute dyspnea, Acute exacerbation of CHF (congestive heart failure), Non-ST elevation [place] (NSTEMI), Acute kidney injury superimposed on chronic kidney disease ED Provider Note HISTORY OF PRESENT ILLNESS: Patient is a 72-year-old male presenting with shortness of breath. Patient re ports he has been dealing with shortness of breath progressively worsening over the last 2 weeks. He states that over the last few days he has been significantly worse shortness of breath. He states he feels short of breath both at rest but most notably with exertion. He does not wear any supplemental oxygen at baseline. He is on aspirin and Coumadin for history of A-fib. Denies any DVT or PE history. He does report increasing lower extremity edema over the last few days. He is not on a diuretic. Denies any chest pain ROS: as above PHYSICAL EXAM: Constitutional: Patient appears in no acute distress. HENT: Head: Normocephalic and atraumatic. Eyes: EOMI, PERRL Mouth/Throat: Mucous membranes moist. Neck: Trachea midline. Neck supple. Cardiovascular: RRR, No murmurs, rubs or gallops. Intact distal pulses. Pulmonary/Chest: No respiratory distress. Breath sounds clear and equal bilaterally. No wheezes or rales. Abdominal: Abdomen soft, no tenderness, rebound or guarding. Musculoskeletal: No tenderness or deformity noted. Pitting edema of the bilateral extremities extending to the knees Skin: Warm and dry. No rash, erythema, pallor or cyanosis Psychiatric: Appropriate mood and affect for situation. Neurological: Alert and keenly responsive. CN II-XII grossly intact, moving all extremities equally and fully. MDM: - Vitals signs stable. - History obtained via patient. Patient presents with shortness of breath. Patient reports he has been having progressively worsening shortness of breath over the last 2 months, but more notably present in the last few days. He states he is unable to take more than a few steps before becoming winded. Denies any chest pain. He is not on any supplemental oxygen at baseline. Denies any DVT or PE history. He is on aspirin and Coumadin for history of A- fib. - Chronic conditions affecting care: CKD; Afib; CHF; DM-2; HTN; HLD - Differential diagnoses include, but are not limited to: Congestive heart failure; acute coronary syndrome; COPD/asthma exacerbation; pulmonary edema; pulmonary embolism; pneumonia; pneumothorax; viral syndrome - Order placed for continuous cardiac monitoring. At this time, monitor showed rate of 60 bpm with paced rhythm, per my interpretation. - External medical records reviewed. No previous echocardiogram was noted. - EKG reviewed by myself showed ventricular paced rhythm - Laboratory workup interpreted by myself showed leukocytosis (WBC 11.6); elevated troponin (31.4); elevated BNP (453); hyponatremia (Na 133); JORGE on CKD (Cr 1.93 - baseline 1.4) - UA negative for infection - CXR negative for pneumonia, per my interpretation. - Discussion was had with social insurance specialist about patient's case and need for admission - Hospitalist consulted for admission - Patient admitted to [facility] for further evaluation and management. ASSESSMENT AND PLAN: Diagnosis: shortness of breath; CHF exacerbation; NSTEMI; JORGE on CKD Plan: admit Past Med/Surg History Medical History Acute renal failure superimposed on stage 3 chronic kidney disease 08/2020 hospitalization, UTI and osteomyelitis, necrotizing fasciitis Atrial fibrillation CHF (congestive heart failure) Chronic anemia CKD (chronic kidney disease), stage III Complex sleep apnea syndrome CVA (cerebral vascular accident) 01/2018; residual right sided weakness Degenerative cervical spinal stenosis Degenerative lumbar spinal stenosis Depression Diabetes type 2, controlled NIDDM Diabetic peripheral neuropathy associated with type 2 diabetes mellitus Dyslipidemia Erectile dysfunction Esophageal obstruction Essential hypertension Hyperlipemia Hyperparathyroidism, secondary renal Hypertension 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 kidney disease MCC current use of 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 Mixed sleep apnea No device (previous BIPAP) Morbid obesity Myocardial Infarction 2017 > medically managed Nonalcoholic 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 (PLATT) Pacemaker Left, normal single chamber pacemaker function with stable pacing and sensing thresholds per pacer check 12/08/20 [facility] Paroxysmal SVT (supraventricular tachycardia) Peripheral arterial disease 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, EVELINE TPT/proximal [employer] DES[employer]ER 10/2019, Right great toe amputation 07/2020 with revision 08/2020 Persistent proteinuria Proliferative diabetic retinopathy Sepsis 2013 Tachy-geronimo syndrome Venous insufficiency of both lower extremities Vitamin B12 deficiency Surgical History Amputation toe Right great toe amputation (08/12/20): MAC at [facility] Gastric bypass status for obesity History of amputation of lesser toe of right foot History of esophagogastroduodenoscopy (EGD) History of hand surgery Tendon transfer History of vascular surgery Left 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, 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/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) Right great toe I&D, revision amputation (08/21/20): MAC at [facility] Hx of angioplasty Family History Brother Diabetes Mother Diabetes Father Diabetes Other Cancer Hypertension Social History Smoking Status: Never smoker Tobacco Type: Cigarettes Second Hand Exposure: No; Do You Dip or Chew Tobacco: No; Hx Alcohol Use: No Hx Substance Use: No Preferred Language: Setswana 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 Ability: Effective Visual Impairment: Limited Hearing Ability: Normal 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 Beliefs That Will Affect Care: None marital status: Current Living Situation: Alone Current Living Situation Comment: DAUGHTER and SON IN LAW LIVES UPSTAIRS-able to assist with dressings current occupational status: retired How many Children do You have: 2 Feels Safe at Home: Yes Diet Comment: Educated to increase protein, vitamin c, d and zinc Assistive Devices: None Allergies Allergies Allergy/AdvReac Type Severity Reaction Status Date / Time No Known Allergies Allergy Verified 05/12/22 11:02 Home Meds Home Medications Medication Instructions Recorded Confirmed pediatric [id number] 1 tab PO PM ##0 04/11/13 10/07/22 (Flintstones Complete (iron) chewable tablet) atorvastatin 40 mg tablet 40 mg PO PM #0 tabs 01/08/17 10/07/22 cholecalciferol (vitamin D3) 25 2,000 unit PO PM 10/18/17 10/07/22 mcg (1,000 unit) capsule (Vitamin D3) cyanocobalamin (vitamin B-12) 1,000 mcg PO PM 05/06/19 10/07/22 1,000 mcg tablet furosemide 20 mg tablet 20 mg PO DAILY PRN swelling 05/06/19 10/07/22 tamsulosin 0.4 mg capsule 0.4 mg PO PM 05/06/19 10/07/22 magnesium oxide 400 mg PO DAILY 09/26/19 10/07/22 empagliflozin 10 mg tablet 10 mg PO QAM 11/04/19 10/07/22 (Jardiance) losartan 50 mg tablet 50 mg PO DAILY 08/11/20 10/07/22 triamcinolone acetonide 0.1 % 1 applic topical BID PRN Rash 08/11/20 10/07/22 topical cream acetaminophen 500 mg tablet 1,000 mg PO Q6H PRN Pain 12/17/20 10/07/22 aspirin 81 mg tablet 81 mg PO DAILY 12/21/20 10/07/22 warfarin 3 mg tablet 3 mg PO [id number] 11/26/21 10/07/22 empagliflozin 10 mg tablet 10 mg PO DAILY 10/07/22 10/07/22 (Jardiance) warfarin 3 mg tablet 3 mg PO SUTUWETHFRSA@1600 10/07/22 10/07/22 warfarin 3 mg tablet 6 mg PO MO@1600 10/07/22 10/07/22 Results & Data (ED) Vital Signs Vital Signs - 24 hr 10/07/22 14:55 10/07/22 16:27 10/07/22 16:27 Temperature 36.7 C Temperature Source Skin Pulse Rate 81 60 Pulse Rhythm Regular Respiratory Rate 20 17 Respiratory Effort / Characteristics Non-Labored Respiratory Depth Normal Blood Pressure 132/77 Blood Pressure Mean 95 Pulse Oximetry 95 98 Oxygen Delivery Method Room Air Room Air Oxygen Flow Rate Sepsis Recent Fever Within 48 Hours No Sepsis New/Unexplained Change in Mental Status No Sepsis Action Taken by Nursing No Action Required 10/07/22 16:32 10/07/22 16:25 10/07/22 16:30 Temperature Temperature Source Pulse Rate 67 60 Pulse Rhythm Respiratory Rate 20 Respiratory Effort / Characteristics Respiratory Depth Blood Pressure 134/71 Blood Pressure Mean 92 Pulse Oximetry 98 Oxygen Delivery Method Room Air Room Air Oxygen Flow Rate 97 Sepsis Recent Fever Within 48 Hours Sepsis New/Unexplained Change in Mental Status Sepsis Action Taken by Nursing 10/07/22 17:00 10/07/22 17:30 10/07/22 18:00 Temperature Temperature Source Pulse Rate 60 60 60 Pulse Rhythm Respiratory Rate 18 20 18 Respiratory Effort / Characteristics Respiratory Depth Blood Pressure 126/72 121/66 121/64 Blood Pressure Mean 90 84 83 Pulse Oximetry 98 96 94 Oxygen Delivery Method Room Air Room Air Room Air Oxygen Flow Rate Sepsis Recent Fever Within 48 Hours Sepsis New/Unexplained Change in Mental Status Sepsis Action Taken by Nursing 10/07/22 18:30 Temperature Temperature Source Pulse Rate 60 Pulse Rhythm Respiratory Rate 24 Respiratory Effort / Characteristics Respiratory Depth Blood Pressure 114/66 Blood Pressure Mean 82 Pulse Oximetry 97 Oxygen Delivery Method Room Air Oxygen Flow Rate Sepsis Recent Fever Within 48 Hours Sepsis New/Unexplained Change in Mental Status Sepsis Action Taken by Nursing Laboratory Data 10/07/22 15:10 10/07/22 15:10 Lab Results 10/07/22 10/07/22 10/07/22 Range/Units 15:10 15:10 15:42 WBC 11.60 H (4.8-10.8) K/ul RBC 4.60 L (4.70-6.10) M/uL Hgb 13.0 L (14.0-18.0) g/dl Hct 39.9 L (42.0-52.0) % MCV 86.7 (80.0-100.0) fL MCH 28.3 (25.0-34.0) pg MCHC 32.6 (32.0-36.0) g/dL RDW Std Deviation 53.7 H (36.4-46.3) fL RDW Coeff of Jason 17.0 H (11.5-14.5) % Plt Count 173 (130-400) K/uL MPV 10.9 (9.4-12.4) fL Immature Gran % (Auto) 0.5 % Neut % (Auto) 89.4 % Lymph % (Auto) 4.1 % [place] % (Auto) 5.9 % Eos % (Auto) 0.0 % Baso % (Auto) 0.1 % Neut # (Auto) 10.37 H (1.40-6.50) K/uL Lymph # (Auto) 0.47 L (1.20-3.40) K/uL [place] # (Auto) 0.69 H (0.11-0.59) K/uL Eos # (Auto) 0.00 (0.00-0.50) K/uL Baso # (Auto) 0.01 (0.00-0.20) K/uL Immature Gran # (Auto) 0.06 (0.01-0.20) K/uL Sodium 133 L (136-145) mmol/L Potassium 4.0 (3.5-5.1) mmol/L Chloride 106 (98-107) mmol/L Carbon Dioxide 20 L (21-32) mmol/L Anion Gap 7 (3-11) BUN 33 H (6-23) mg/dl Creatinine 1.93 H (0.6-1.4) mg/dl Est Cr Clr Drug Dosing 44.7 ml/min Est GFR ( Amer) 39.7 ml/min Est GFR (Non-Af Amer) 34.3 ml/min BUN/Creatinine Ratio 17.1 (10-20) Glucose 170 H (70-99(Fasting)) mg/dl Calcium 8.4 L (8.6-10.3) mg/dl Total Bilirubin 1.5 H (0.2-1.0) mg/dl AST 31 (13-39) U/L ALT 23 (7-52) U/L Alkaline Phosphatase 62 (34-104) U/L Troponin I High Sens (0-20) pg/ml B-Natriuretic Peptide (0-100) pg/ml Total Protein 7.2 (6.0-8.3) gm/dl Albumin 3.3 L (3.4-5.0) gm/dl Globulin 3.9 (2.5-4.0) gm/dl Albumin/Globulin Ratio 0.8 L (0.9-2) Urine Color Dark Yellow Urine Appearance Cloudy A (Clear) Urine pH 5.5 (4.5-7.5) Ur Specific [place] 1.034 H (1.000-1.030) Urine Protein 3+ H (Negative) Urine Glucose (UA) 3+ H (Negative) Urine Ketones Trace H (Negative) Urine Blood 2+ H (Negative) Urine Nitrite Negative (Negative) Urine Bilirubin 1+ H (Negative) Urine Urobilinogen Negative (Negative) Ur Leukocyte Esterase Negative (Negative) Urine WBC (Auto) 5-10 H (0-5) /hpf Urine RBC (Auto) 5-10 H (0-4) /hpf U Hyaline Cast (Auto) 5-10 H (0-5) /lpf U Epithel Cells (Auto) 10-20 H (0-5) /lpf Urine Bacteria (Auto) Negative (Negative) Urine Yeast Not Reportable 10/07/22 10/07/22 Range/Units 17:09 17:09 WBC (4.8-10.8) K/ul RBC (4.70-6.10) M/uL Hgb (14.0-18.0) g/dl Hct (42.0-52.0) % MCV (80.0-100.0) fL MCH (25.0-34.0) pg MCHC (32.0-36.0) g/dL RDW Std Deviation (36.4-46.3) fL RDW Coeff of Jason (11.5-14.5) % Plt Count (130-400) K/uL MPV (9.4-12.4) fL Immature Gran % (Auto) % Neut % (Auto) % Lymph % (Auto) % [place] % (Auto) % Eos % (Auto) % Baso % (Auto) % Neut # (Auto) (1.40-6.50) K/uL Lymph # (Auto) (1.20-3.40) K/uL [place] # (Auto) (0.11-0.59) K/uL Eos # (Auto) (0.00-0.50) K/uL Baso # (Auto) (0.00-0.20) K/uL Immature Gran # (Auto) (0.01-0.20) K/uL Sodium (136-145) mmol/L Potassium (3.5-5.1) mmol/L Chloride (98-107) mmol/L Carbon Dioxide (21-32) mmol/L Anion Gap (3-11) BUN (6-23) mg/dl Creatinine (0.6-1.4) mg/dl Est Cr Clr Drug Dosing ml/min Est GFR ( Amer) ml/min Est GFR (Non-Af Amer) ml/min BUN/Creatinine Ratio (10-20) Glucose (70-99(Fasting)) mg/dl Calcium (8.6-10.3) mg/dl Total Bilirubin (0.2-1.0) mg/dl AST (13-39) U/L ALT (7-52) U/L Alkaline Phosphatase (34-104) U/L Troponin I High Sens 31.4 H (0-20) pg/ml B-Natriuretic Peptide 453 H (0-100) pg/ml Total Protein (6.0-8.3) gm/dl Albumin (3.4-5.0) gm/dl Globulin (2.5-4.0) gm/dl Albumin/Globulin Ratio (0.9-2) Urine Color Urine Appearance (Clear) Urine pH (4.5-7.5) Ur Specific [place] (1.000-1.030) Urine Protein (Negative) Urine Glucose (UA) (Negative) Urine Ketones (Negative) Urine Blood (Negative) Urine Nitrite (Negative) Urine Bilirubin (Negative) Urine Urobilinogen (Negative) Ur Leukocyte Esterase (Negative) Urine WBC (Auto) (0-5) /hpf Urine RBC (Auto) (0-4) /hpf U Hyaline Cast (Auto) (0-5) /lpf U Epithel Cells (Auto) (0-5) /lpf Urine Bacteria (Auto) (Negative) Urine Yeast Imaging Data Radiologist's Impression: Chest X-Ray 10/07/22 14:59 XR chest 1V portable CLINICAL HISTORY: Dyspnea TECHNIQUE: Single frontal radiograph of the chest was obtained. Comparison: Comparison is made to chest radiograph 08/28/2020 FINDINGS: Dual lead pacemaker is seen. Cardiomegaly is noted. The lungs are clear. No evidence of pleural effusion or pneumothorax. IMPRESSION: No acute abnormalities and in particular no radiographic evidence of pneumonia. Stable cardiomegaly. ACT 112: Negative or not required by law. Electronically signed by: Clemente Sage M.D. 10/07/2022 4:47 PM Discharge Plan Visit Data Chief Complaint: Shortness of Breath/Dyspnea Stated Complaint: SOB ED Provider: Nanette Underwood Discharge Problem: Acute dyspnea, Acute exacerbation of CHF (congestive heart failure), Non-ST elevation [place] (NSTEMI), Acute kidney injury superimposed on chronic kidney disease Forms Stand Alone Forms: My [facility] [employer] Prescriptions Prescriptions: No Action magnesium oxide 400 mg magnesium capsule 400 mg PO DAILY Flintstones Complete (iron) Tablet,Chewable 1 tab PO PM Qty: 0 atorvastatin 40 mg Tablet 40 mg PO PM Qty: 0 cholecalciferol (vitamin D3) [Vitamin D3] 1,000 unit Capsule 2,000 unit PO PM tamsulosin 0.4 mg Capsule 0.4 mg PO PM cyanocobalamin (vitamin B-12) 1,000 mcg Tablet 1,000 mcg PO PM furosemide 20 mg tablet 20 mg PO DAILY PRN (Reason: swelling) Rx Instructions: AM Jardiance 10 mg Tablet 10 mg PO QAM warfarin 3 mg tablet 3 mg PO [id number] Patient Comments: 1-2 tablets daily as directed by coumadin clinic Rx Instructions: PM losartan 50 mg tablet 50 mg PO DAILY triamcinolone acetonide 0.1 % Cream 1 applic TOPICAL BID PRN (Reason: Rash) Rx Instructions: To affected area acetaminophen 500 mg Tablet 1,000 mg PO Q6H PRN (Reason: Pain) aspirin 81 mg Tablet 81 mg PO DAILY warfarin 3 mg Tablet 6 mg PO MO@1600 warfarin 3 mg Tablet 3 mg PO SUTUWETHFRSA@1600 Jardiance 10 mg tablet 10 mg PO DAILY Referrals Referrals: Jocelyne Desai DO [Primary Care Provider] -
--- NOTE | 2022-10-07 18:43 | History & Physical Report ---
Date of Service October 07, 2022 Assessment & Plan (1) Cellulitis of right lower extremity: (2) Acute dyspnea: (3) CHF (congestive heart failure): (4) Diabetes type 2 with atherosclerosis of arteries of extremities: (5) Hx MRSA infection: (6) Acute kidney injury superimposed on chronic kidney disease: (7) Atrial fibrillation: (8) Pacemaker: Plan: This is a 72-year-old male who has a significant past medical history of chronic atrial fibrillation anticoagulated on warfarin cardiac pacemaker in situ, CAD with history of coronary stent HTN, PAD, history of CVA, venous insufficiency T2DM with neuropathy, CKD stage IIIb, hyperparathyroidism, hyperlipidemia, sleep apnea on BiPAP, vitamin D deficiency, vitamin B12 deficiency, history of toe amputations R great toe/2and 3rd distal phalanx, history of gastric bypass, depression who presents secondary to shortness of breath x 2 weeks. Right lower extremity cellulitis Right diabetic foot wound, present on arrival History of MRSA Chronic venous stasis Admit to telemetry Placed on IV Rocephin and IV daptomycin (hold statin therapy) Consult wound care Patient does follow with wound clinic at [facility] He does not meet septic criteria obtain b/l dopplers Shortness of breath, worse over the last 2 weeks Possible acute on chronic diastolic heart failure exacerbation Elevated Troponin Trial 20 mg IV Lasix in ED this evening Patient has been having worsening dyspnea on exertion with increasingly difficult to do day-to-day tasks His weight has actually been decreasing into the low 130s, he does have lower extremity edema however right greater than left in setting of cellulitis Patient most recently had echocardiogram as outpatient 10/04/2022 which showed normal LVEF of 55%, mildly increased concentric LVH, septal motion abnormal consistent with right ventricular pacemaker, mild aortic valve sclerosis present mild TR mild pulmonary hypertension Daily weights, strict I's and O Consult cardiology to assist with further management troponin leak likely in setting of know underlying heart disease/infection no cp/ecg change, will trend will hold further diuretic dosing to a.m. provider after we see clinical response Chronic atrial fib hx of TBS s/p PPM Supratherapeutic INR was seen in pacer clinic today hold warfarin today, Daily PT/INR home regimen 6mg mondays, 3mg all other days will continue warfarin tomorrow CKD-3 with acute worsening baseline cr 1.4-5, 1.9 today monitor closely, especially given dose of lasix today if worsens may need to get nephro on board avoid nephrotoxic agents T2DM with comorbidities of PAD/PVD/Neuropathy/Ulcer hold Jardiance Lantus/NovoLog per protocol a1c in a.m., last 7 in april 2022 [facility]ERVA with Bipap at HS HLD chronic, stable hold in setting of dapto use FULL CODE PCP: Dr. Desai Dispo: admit to tele Pt was seen and examined in collaboration with Dr. Cook, please see addendum A total of 75 was spent coordinating, documenting, and providing care for this patient excluding time spent in the performance of separately billed services. This included personally viewing all current laboratories and imaging studies, medication reconciliation, outpatient chart review, and discussion with specialists. History of Present Illness Chief Complaint: Referred by PCP 2/2 SOB x 2 weeks. Primary Care Provider: oJcelyne Desai DO This is a 72-year-old male who has a significant past medical history of chronic atrial fibrillation anticoagulated on warfarin cardiac pacemaker in situ, CAD with history of coronary stent HTN, PAD, history of CVA, venous insufficiency T2DM with neuropathy, CKD stage IIIb, hyperparathyroidism, hyperlipidemia, sleep apnea on BiPAP, vitamin D deficiency, vitamin B12 deficiency, history of toe amputations R great toe/2and 3rd distal phalanx, history of gastric bypass, depression who presents secondary to shortness of breath x 2 weeks. Of significance he was seen and evaluated at PCPs office today while at cardiology clinic for pacemaker check secondary to complaints of shortness of breath. He has had shortness of breath for the past several months but has been worsening the last couple weeks. He has not been taking his Lasix at home due to weight being down. Currently his weight is 130 and baseline is typically 1 34-1 35. In clinic today he weighed 138 with clothes and shoes but this was down from 154 in June 2022. Patient admits to having shortness of breath for several months however worsened over the last 2 weeks. At baseline patient would get out of breath with exertion; however, now he is getting out of breath with even activities of daily living. He states his weights are trending down and he has not been taking Lasix because his legs have not been swollen. However the last 2 to 3 days he has noticed increased swelling, redness to his right leg. Patient follows with [facility] foot wound clinic secondary to an ulcer to the right foot. Currently he states they are treating him with a skin graft dressing. He does not note any increasing pain to the foot but he does note increasing pain to the right leg. He has had a poor appetite for the last 2 to 3 days. He denies any orthopnea or PND. He does have a recliner and hospital bed at home and does tend to sleep a little bit elevated. He otherwise denies recent illness, fever, chills, sweats, lightheadedness, dizziness, chest pain, cough, hemoptysis, nausea, vomiting, abdominal pain. He feels his bowels are moving adequately and he is urinating without difficulty. He has otherwise been taking his medications as prescribed.In ED patient remained hemodynamically stable. Lab work significant for elevated WBC at 11.6 K, H&H 13.0 and 39.9, INR 3.1, sodium 133, BUN 33, creatinine 1.93, glucose 170, total bilirubin 1.5, Trope 34.3, BNP 453 and chest x-ray negative for any acute abnormality. His EKG revealed a ventricular paced rhythm in atrial fibrillation but otherwise did not note any ST or T wave changes. Allergies Allergy/AdvReac Type Severity Reaction Status Date / Time No Known Allergies Allergy Verified 05/12/22 11:02 Home Medications Medication Instructions Recorded Confirmed Type pediatric [id number]-fvhf-[id number] 1 tab PO PM ##0 04/11/13 10/07/22 History (Flintstones Complete (iron) chewable tablet) atorvastatin 40 mg tablet 40 mg PO PM #0 tabs 01/08/17 10/07/22 History cholecalciferol (vitamin D3) 25 2,000 unit PO PM 10/18/17 10/07/22 History mcg (1,000 unit) capsule (Vitamin D3) cyanocobalamin (vitamin B-12) 1,000 mcg PO PM 05/06/19 10/07/22 History 1,000 mcg tablet furosemide 20 mg tablet 20 mg PO DAILY PRN swelling 05/06/19 10/07/22 History tamsulosin 0.4 mg capsule 0.4 mg PO PM 05/06/19 10/07/22 History magnesium oxide 400 mg PO DAILY 09/26/19 10/07/22 History triamcinolone acetonide 0.1 % 1 applic topical BID PRN Rash 08/11/20 10/07/22 History topical cream acetaminophen 500 mg tablet 1,000 mg PO Q6H PRN Pain 12/17/20 10/07/22 History aspirin 81 mg tablet 81 mg PO DAILY 12/21/20 10/07/22 History warfarin 3 mg tablet 3 mg PO SUTUWETHFRSA@1600 10/07/22 10/07/22 History warfarin 3 mg tablet 6 mg PO MO@1600 10/07/22 10/07/22 History cyclobenzaprine 10 mg tablet 10 mg PO Q8H PRN muscle spasm #15 10/16/22 Rx tabs losartan 25 mg tablet 25 mg PO DAILY #30 tabs 10/16/22 Rx metoprolol succinate 25 mg 25 mg PO QAM #30 tabs 10/16/22 Rx tablet,extended release 24 hr Past Med/Surg History Medical History Acute renal failure superimposed on stage 3 chronic kidney disease 08/2020 hospitalization, UTI and osteomyelitis, necrotizing fasciitis Atrial fibrillation CHF (congestive heart failure) Chronic anemia CKD (chronic kidney disease), stage III Complex sleep apnea syndrome CVA (cerebral vascular accident) 01/2018; residual right sided weakness Degenerative cervical spinal stenosis Degenerative lumbar spinal stenosis Depression Diabetes type 2, controlled NIDDM Diabetic peripheral neuropathy associated with type 2 diabetes mellitus Dyslipidemia Erectile dysfunction Esophageal obstruction Essential hypertension Hyperlipemia Hyperparathyroidism, secondary renal Hypertension 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 kidney disease detention current use of 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 Mixed sleep apnea No device (previous BIPAP) Morbid obesity Myocardial Infarction 2017 > medically managed Nonalcoholic 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 (PLATT) Pacemaker Left, normal single chamber pacemaker function with stable pacing and sensing thresholds per pacer check 12/08/20 [facility] Paroxysmal SVT (supraventricular tachycardia) Peripheral arterial disease 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, EVELINE TPT/proximal DRILLER HAND 10/2019, Right great toe amputation 07/2020 with revision 08/2020 Persistent proteinuria Proliferative diabetic retinopathy Sepsis 2014 Tachy-geronimo syndrome Venous insufficiency of both lower extremities Vitamin B12 deficiency Surgical History Amputation toe Right great toe amputation (08/12/20): MAC at [facility] Gastric bypass status for obesity History of amputation of lesser toe of right foot History of esophagogastroduodenoscopy (EGD) History of hand surgery Tendon transfer History of vascular surgery Left popliteal, EVELINE TPT/proximal DRILLER HAND (10/2019) Right great toe I&D, revision amputation (08/21/20): MAC at [facility] Hx of angioplasty Family History Brother Diabetes Mother Diabetes Father Diabetes Other Cancer Hypertension Social History Smoking Status: Never smoker Tobacco Type: Cigarettes Second Hand Exposure: No; Do You Dip or Chew Tobacco: No; Hx Alcohol Use: Yes Alcohol type: beer and wine Alcohol Intake Frequency: Monthly or Less Hx Substance Use: No Preferred Language: [place] 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 Ability: Effective Visual Impairment: Limited Hearing Ability: Normal Hair Or Beauty Salon Manager Required: No Beliefs That Will Affect Care: None marital status: Current Living Situation: Alone Current Living Situation Comment: daughter lives upstairs and can provide help current occupational status: retired How many Children do You have: 2 Feels Safe at Home: Yes Diet Comment: Educated to increase protein, vitamin c, d and zinc Assistive Devices: Cane Review of Systems Review of Systems: All systems reviewed & are unremarkable except as noted in HPI & below Physical Exam Physical Exam: Constitutional: WD/WN, M, sitting up in bed, vitals as above, NAD, sitting up in bed, pleasant, conversing easily Head: Normocephalic, Atraumatic, b/l temporal wasting Eyes: PERRL, conjunctivae normal, anicteric sclerae ENMT: external ear and nose normal, oropharynx normal dry membranes Neck: trachea midline, no thyromegaly normal visual inspection Respiratory: normal respiratory effort, lungs clear to auscultation, no wheeze, rales, rhonchi. Normal insp/exp effort, no accessory muscle use Cardiovascular: IRR/IRR, no murmur, B/L chronic venous stasis changes with RLE Increased edema/erythema with streaking up posterior thigh , tubigrip to LLE, wound to R foot, dressing removed, no surrounding erythema, Vessels: no JVD or carotid bruit Chest: normal inspection of chest Abdomen: normal bowel sounds, obese abd, soft, nontender, Musculoskeletal: no cyanosis or clubbing, AROM x 4 Skin: no rashes, warm and dry normal turgor Neurologic: PERRL, EOMI, accommodation nl, no face palsy, no dysarthria CN's II-XI intact bilaterally and moves all extremities Psychiatric: A+Ox3, euthymic affect Lymphatic: no cervical or axillary lymphadenopathy : deferred Results & Data Results & Data Vital Signs (Past 12 Hours) Vital Signs Temp Pulse Resp BP Pulse Ox O2 Del Method O2 Flow Rate 10/07/22 18:30 60 24 114/66 97 Room Air 10/07/22 18:00 60 18 121/64 94 Room Air 10/07/22 17:30 60 20 121/66 96 Room Air 10/07/22 17:00 60 18 126/72 98 Room Air 10/07/22 16:30 60 20 134/71 98 Room Air 10/07/22 16:25 67 10/07/22 16:32 Room Air 97 10/07/22 16:27 60 17 98 Room Air 10/07/22 14:55 36.7 C 81 20 132/77 95 Room Air Diagnostic Findings Chest X-Ray 10/07/22 14:59 XR chest 1V portable CLINICAL HISTORY: Dyspnea TECHNIQUE: Single frontal radiograph of the chest was obtained. Comparison: Comparison is made to chest radiograph 08/28/2020 FINDINGS: Dual lead pacemaker is seen. Cardiomegaly is noted. The lungs are clear. No evidence of pleural effusion or pneumothorax. IMPRESSION: No acute abnormalities and in particular no radiographic evidence of pneumonia. Stable cardiomegaly. ACT 112: Negative or not required by law. Electronically signed by: Clemente Sage M.D. 10/07/2022 4:47 PM Patient had outpatient echocardiogram on 10/04/2022 which showed normal LVEF of 55%, mildly increased concentric LVH, septal motion abnormal consistent with right ventricular pacemaker, mild aortic valve sclerosis present mild TR mild pulmonary hypertension ECG Additional Comments: EKG with 70 bpm, ventricularly paced rhythm with underlying atrial fibrillation, QTc 509 COVID-19 Results Results COVID-19 Adm Lab Results: RBC 4.43 M/uL (4.70-6.10) L 10/16/22 WBC 3.89 K/ul (4.8-10.8) L 10/16/22 Hgb 12.6 g/dl (14.0-18.0) L 10/16/22 Hct 37.7 % (42.0-52.0) L 10/16/22 Plt Count 290 K/uL (130-400) 10/16/22 Neutrophils (%) (Auto) 65.9 % 10/13/22 Lymphocytes (%) (Auto) 20.4 % 10/13/22 Monocytes # (Auto) 0.37 K/uL (0.11-0.59) 10/13/22 Eosinophils # (Auto) 0.16 K/uL (0.00-0.50) 10/13/22 Immature Granulocyte % (Auto) 1.1 % 10/13/22 Neutrophils # (Auto) 2.95 K/uL (1.40-6.50) 10/13/22 Lymphocytes # (Auto) 0.91 K/uL (1.20-3.40) L 10/13/22 Monocytes # (Auto) 0.37 K/uL (0.11-0.59) 10/13/22 Eosinophils # (Auto) 0.16 K/uL (0.00-0.50) 10/13/22 Basophils # (Auto) 0.03 K/uL (0.00-0.20) 10/13/22 Immature Granulocyte # (Auto) 0.05 K/uL (0.01-0.20) 3 Echinocytes 2+ 10/13/22 Na 136 mmol/L (136-145) 10/15/22 K 5.0 mmol/L (3.5-5.1) 10/15/22 Cl 108 mmol/L (98-107) H 10/15/22 CO2 26 mmol/L (21-32) 10/15/22 Anion Gap 2 (3-11) L 10/15/22 BUN 32 mg/dl (6-23) H 10/15/22 Creatinine 1.46 mg/dl (0.6-1.4) H 10/15/22 BUN/Creatinine Ratio 21.9 (10-20) H 10/15/22 Glucose Level 95 mg/dl (70-99(Fasting)) 10/15/22 Ca 8.5 mg/dl (8.6-10.3) L 10/15/22 Total Bilirubin 1.1 mg/dl (0.2-1.0) H 10/08/22 Direct Bilirubin 0.4 mg/dl (0-0.2) H 10/07/22 AST/SGOT 29 U/L (13-39) 10/08/22 ALT/SGPT 24 U/L (7-52) 10/08/22 Alkaline Phosphatase 62 U/L (34-104) 10/08/22 Total Protein 6.8 gm/dl (6.0-8.3) 10/08/22 Albumin 3.0 gm/dl (3.4-5.0) L 10/08/22 Globulin 3.8 gm/dl (2.5-4.0) 10/08/22 Albumin/Globulin Ratio 0.8 (0.9-2) L 10/08/22 Total CK 38 U/L (30-223) 10/07/22 INR 1.4 (0.9-1.1) H 10/16/22 Chest X-Ray 10/10/22 Code Status & VTE Plan Code Status FULL CODE Supervising Physician Co-Signing Physician Notes Pt was seen and examined. Agreed with Sylvia BURNETT exam, assessment and plan. 72-year-old male with past medical history of chronic atrial fibrillation anticoagulated on warfarin cardiac pacemaker in situ, CAD with history of coronary stent HTN, PAD, history of CVA, venous insufficiency T2DM with neuropathy, CKD stage IIIb, hyperparathyroidism, hyperlipidemia, sleep apnea on BiPAP, vitamin D deficiency, vitamin B12 deficiency, history of toe amputations R great toe/2and 3rd distal phalanx, history of gastric bypass, depression who presents secondary to shortness of breath. Pt said that he has been having SOB for about 2 weeks. He said that SOB has been worsening in the last few weeks with minimal exertion.He said that he has not been taking his lasix due to his weight has been down. In the ER CXR showed no acute abnormalities and in particular no radiographic evidence of pneumonia. Stable cardiomegaly. Lab work significant for elevated WBC at 11.6 K, H&H 13.0 and 39.9, INR 3.1, Creatinine 1.9, Troponin 34. Will give Lasix 20mg IV x1. Will reassess in am for additional lasix. Continue Coumadin. Will trend Troponin. Will consult Cardiology. Monitor input and output. Will monitor BMP. Continue monitor closely in tele. MD Joyce
[2022-10-07] MEDS ORDERED: FUROSEMIDE INJ 20 MG/2 ML VIAL IV STA (19:38)
[2022-10-07] MEDS ORDERED: cefTRIAXone SODIUM 2,000 MG in DEXTROSE 5% 50 ML IV STA (19:43)
[2022-10-07 19:44] LABS: INR 3.1 (0.9-1.1); Prothrombin Time 31.9 Seconds (9.0-12.0)
[2022-10-07] MEDS ORDERED: CARBOHYDRATES FOR HYPOGLYCEMIA PO PRN (21:20)
[2022-10-07] MEDS ORDERED: ALUMINUM/MAGNESIUM SUSP 30 ML UDC PO PRN (21:20)
[2022-10-07] MEDS ORDERED: DEXTROSE 50% 50 ML SYRINGE IV PRN (21:20)
[2022-10-07] MEDS ORDERED: GLUCOSE 10 TAB/TUBE PO PRN (21:20)
[2022-10-07] MEDS ORDERED: GLUCAGON FOR INJ 1 MG VIAL SQ PRN (21:20)
[2022-10-07] MEDS ORDERED: POLYETHYLENE (MIRALAX) 17 GM PACK PO PRN (21:20)
[2022-10-07] MEDS ORDERED: GLUCOSE 40% GEL 15 GM TUBE PO PRN (21:20)
[2022-10-07] MEDS: TAMSULOSIN HCL 0.4 MG CAP PO SCH (22:00)
[2022-10-07] MEDS: CHOLECALCIFEROL 1,000 UNITS 25 MCG TAB PO SCH (22:00)
[2022-10-07] MEDS: CYANOCOBALAMIN (B-12) 500 MCG TABLET PO SCH (22:01)
[2022-10-07] MEDS: INSULIN ASPART PER UNIT CHARGE SC SCH (22:09)
[2022-10-07] MEDS: LANTUS PER UNIT CHARGE SQ SCH (22:10)
[2022-10-07] MEDS: DAPTOmycin 350 MG in SYRINGE 0 ML IV SCH (22:13)
[2022-10-08] LABS: Troponin I High Sensitivity 35.8 pg/ml (0-20)
[2022-10-08 05:19] LABS: Basophils # (auto) 0.02 K/uL (0.00-0.20); Basophils % (auto) 0.2 %; Eosinophils # (auto) 0.05 K/uL (0.00-0.50); Eosinophils % (auto) 0.4 %; Hematocrit (blood only) 37.1 % (42.0-52.0); Hemoglobin 12.5 g/dl (14.0-18.0); Immature Granulocytes # (auto) 0.08 K/uL (0.01-0.20); Immature Granulocytes % (auto) 0.6 %; Lymphocytes # (auto) 0.78 K/uL (1.20-3.40); Lymphocytes % (auto) 6.3 %; Mean Corpuscular Hemoglobin 28.2 pg (25.0-34.0); Mean Corpuscular Hgb Conc 33.7 g/dL (32.0-36.0); Mean Corpuscular Volume 83.6 fL (80.0-100.0); Mean Platelet Volume 10.8 fL (9.4-12.4); Monocytes # (auto) 0.82 K/uL (0.11-0.59); Monocytes % (auto) 6.6 %; Neutrophils # (auto) 10.64 K/uL (1.40-6.50); Neutrophils % (auto) 85.9 %; Platelet Count 153 K/uL (130-400); RDW Coefficient of Variation 16.8 % (11.5-14.5); RDW Standard Deviation 51.2 fL (36.4-46.3); Red Blood Count 4.44 M/uL (4.70-6.10); White Blood Count 12.39 K/ul (4.8-10.8)
[2022-10-08 05:34] LABS: Albumin Globulin Ratio 0.8 (0.9-2); BUN Creatinine Ratio 19.3 (10-20); Bilirubin,Total 1.1 mg/dl (0.2-1.0); Calcium 8.3 mg/dl (8.6-10.3); Creatinine Clr Calc Pharmacy 48.3 ml/min; Est GFR (African American) 44.4 ml/min; Est GFR (Non-African American) 38.3 ml/min; Globulin 3.8 gm/dl (2.5-4.0); Magnesium 1.7 mg/dl (1.7-2.4); Potassium 3.5 mmol/L (3.5-5.1); Total Protein 6.8 gm/dl (6.0-8.3)
[2022-10-08 05:41] LABS: Troponin I High Sensitivity 34.7 pg/ml (0-20)
[2022-10-08 05:46] LABS: INR 3.1 (0.9-1.1); Prothrombin Time 31.7 Seconds (9.0-12.0)
--- NOTE | 2022-10-08 07:19 | Electrocardiogram Report ---
Test Reason : Blood Pressure : / mmHG Vent. Rate : 061 BPM Atrial Rate : 053 BPM P-R Int : 000 ms QRS Dur : 206 ms QT Int : 524 ms P-R-T Axes : 000 -74 106 degrees QTc Int : 527 ms Ventricular-paced rhythm Abnormal ECG When compared with ECG of 07-OCT-2022 15:30, Vent. rate has decreased BY 9 BPM Confirmed by Jhonatan Olivera ([id number]) on 10/08/2022 7:19:13 AM Referred By: REFERRED SELF Confirmed By:Jason Olivera
[2022-10-08 08:34] LABS: Estimated Average Glucose 146 mg/dl; Hemoglobin A1C 6.7 % (4.5-5.6)
--- NOTE | 2022-10-08 08:51 | Ultrasound Report ---
BILATERAL LOWER EXTREMITY VENOUS DOPPLER CLINICAL HISTORY: edema r/o dvt COMPARISON STUDY: Bilateral lower extremity venous Doppler ultrasound October 19, 2017. TECHNIQUE: Sonography of the deep venous system of the bilateral lower extremities was performed. Co mpression and augmentation were evaluated. FINDINGS: The bilateral common femoral, superficial femoral and popliteal veins were compressible. A ugmentation was normal. Flow was shown within the deep calf vessels. Right calf subcutaneous edema is noted. There is a mildly enlarged right inguinal lymph node which measures 1.6 x 1.1 cm. This contai ns a fatty hilum. IMPRESSION: 1. No evidence of deep venous thrombus within the bilateral lower extremities. 2. Mildly enlarged right inguinal lymph node. This node contains a fatty hilum and is probably benign . This may be reactive. A follow-up right groin ultrasound in 3 months is recommended to ensure stabi lity/resolution. ACT 112: Negative or not required by law. Electronically signed by: Jay Carrasco M.D. 10/08/2022 8:50 AM
[2022-10-08] MEDS: ASPIRIN 81 MG ECTAB PO SCH (09:04)
[2022-10-08] MEDS: LOSARTAN POTASSIUM 50 MG TAB PO SCH (09:04)
[2022-10-08] MEDS: SACCHAROMYCES BOULARDII 250 MG CAP PO SCH (09:05)
[2022-10-08] MEDS: MAGNESIUM OXIDE 400 MG TAB PO SCH (09:05)
[2022-10-08] MEDS: INSULIN ASPART PER UNIT CHARGE SC SCH ×4 (09:08→20:52)
[2022-10-08] MEDS: LANTUS PER UNIT CHARGE SQ SCH ×2 (09:09→20:53)
[2022-10-08] MEDS: CEFEPIME 2,000 MG in SYRINGE 0 ML IV SCH ×2 (09:39→22:13)
--- NOTE | 2022-10-08 13:49 | Cardiology Consultation ---
Date of Consultation October 08, 2022 Assessment & Plan (1) Cellulitis of right lower extremity: (2) Acute dyspnea: (3) Acute kidney injury superimposed on chronic kidney disease: (4) Atrial fibrillation: (5) Pacemaker: (6) Diabetic ulcer of right foot: Plan Patient is a very complex 72-year-old male presented with symptoms of increasing fatigue and dyspnea. Examination reflects evidence of significant cellulitis right lower extremity. Exam is not consistent with acute congestive heart failure with clear chest x- ray, no evidence of jugular venous distention, known preserved LV systolic function and laboratory studies reflecting mild azotemia Would treat underlying infectious process. Expand cultures to include blood and urine Troponins are elevated but flat and consistent with patient's acute illness We will obtain pacemaker interrogation from day prior with device approaching SURESH. No indications for acute intervention History of Present Illness Reason for Consultation: Dyspnea, rule out heart failure Requesting Physician: Dr. Chow Attending Physician: Erlin Chow MD History of Present Illness Patient is a 72-year-old male with complex cardiac history which includes per outpatient records 1. Chronic atrial fibrillation 2. Chronic Coumadin anticoagulation 3. Hospitalization in January 2018 with an acute left MCA CVA, subtherapeutic INR due to noncompliance with anticoagulation. Hospitalization complicated by hematochezia secondary to ischemic colitis, pneumonia, type 2 OR, acute renal dysfunction, urinary retention, andt hrombocytopenia 4. 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 Hypertension 6. Diastolic congestive heart failure 7. Dyslipidemia. LDL goal less than 70 mg/day. 8. Type II diabetes mellitus with triopathy 9. Peripheral vascular disease and chronic venous insufficiency, followed by [facility] [place] [facility] and [facility] [place] [facility] 1. Hospitalization at [facility] August 11, 2020 to September 02, 2020 with right great toe osteomyelitis, necrotizing fascitis status post amputation and percutaneous tibial intervention by Dr. Jhonatan Castro (bifurcation stenting of heavily calcified anterior tibial, tibioperoneal trunk with 3 drug-eluting stents and angioplasty of the proximal peroneal) on 08/24/2020. 2. Status post January 01, 2021 right foot 3rd toe partial amputation including the distal and middle phalanges by Dr. Weiss. 3. Status post angioplasty of right occluded distal popliteal/TPT stent with drug-eluting balloon (4.0 x 16 mm Lutonix), angioplasty and stenting of right mid to distal popliteal artery (5.0 Lutonix, 5.0 x 80 mm Supera overlapping proximal portion of prior stent) by Dr. Castro at [facility], April 2022. 10. Morbid obesity status post gastric bypass surgery 11. Severe mixed sleep apnea, prescribed BiPAP therapy Patient presents this admission noting increasing fatigue as well as exertional dyspnea, increasing erythema and swelling of the right leg. Yesterday he sought further evaluation after dyspneic when walking and for pacemaker interrogation. (Device approaching end of battery life) No acute etiology found and patient transferred to the ER with increasing lower extremity edema and dyspnea Chest x-ray on presentation clear No hypoxia on room air Right leg erythema and edema noted and patient begun on antibiotic therapies. Patient did receive single dose of IV furosemide in ER with little response Mild renal insufficiency acute on chronic noted At time of examination today patient denies any acute dyspnea though feels more fatigue review of leg exam reveals marked erythema/cellulitis extending from bandaged right foot up until the hip He denies chest pains, tachypalpitations, dizziness No tenderness over pacemaker site Allergies Allergy/AdvReac Type Severity Reaction Status Date / Time No Known Allergies Allergy Verified 05/12/22 11:02 Home Medications Medication Instructions Recorded Confirmed Type pediatric [id number] 1 tab PO PM ##0 04/11/13 10/07/22 History (Flintstones Complete (iron) chewable tablet) atorvastatin 40 mg tablet 40 mg PO PM #0 tabs 01/08/17 10/07/22 History cholecalciferol (vitamin D3) 25 2,000 unit PO PM 10/18/17 10/07/22 History mcg (1,000 unit) capsule (Vitamin D3) cyanocobalamin (vitamin B-12) 1,000 mcg PO PM 05/06/19 10/07/22 History 1,000 mcg tablet furosemide 20 mg tablet 20 mg PO DAILY PRN swelling 05/06/19 10/07/22 History tamsulosin 0.4 mg capsule 0.4 mg PO PM 05/06/19 10/07/22 History magnesium oxide 400 mg PO DAILY 09/26/19 10/07/22 History losartan 50 mg tablet 50 mg PO DAILY 08/11/20 10/07/22 History triamcinolone acetonide 0.1 % 1 applic topical BID PRN Rash 08/11/20 10/07/22 History topical cream acetaminophen 500 mg tablet 1,000 mg PO Q6H PRN Pain 12/17/20 10/07/22 History aspirin 81 mg tablet 81 mg PO DAILY 12/21/20 10/07/22 History empagliflozin 10 mg tablet 10 mg PO DAILY 10/07/22 10/07/22 History (Jardiance) warfarin 3 mg tablet 3 mg PO SUTUWETHFRSA@1600 10/07/22 10/07/22 History warfarin 3 mg tablet 6 mg PO MO@1600 10/07/22 10/07/22 History Patient History Medical History Acute renal failure superimposed on stage 3 chronic kidney disease 08/2020 hospitalization, UTI and osteomyelitis, necrotizing fasciitis Atrial fibrillation CHF (congestive heart failure) Chronic anemia CKD (chronic kidney disease), stage III Complex sleep apnea syndrome CVA (cerebral vascular accident) 01/2018; residual right sided weakness Degenerative cervical spinal stenosis Degenerative lumbar spinal stenosis Depression Diabetes type 2, controlled NIDDM Diabetic peripheral neuropathy associated with type 2 diabetes mellitus Dyslipidemia Erectile dysfunction Esophageal obstruction Essential hypertension Hyperlipemia Hyperparathyroidism, secondary renal Hypertension 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 kidney disease FPC current use of 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 Mixed sleep apnea No device (previous BIPAP) Morbid obesity Myocardial Infarction 2017 > medically managed Nonalcoholic 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 (PLATT) Pacemaker Left, normal single chamber pacemaker function with stable pacing and sensing thresholds per pacer check 12/08/20 [facility] Paroxysmal SVT (supraventricular tachycardia) Peripheral arterial disease 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, EVELINE TPT/proximal 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 10/2019, Right great toe amputation 07/2020 with revision 08/2020 Persistent proteinuria Proliferative diabetic retinopathy Sepsis 2014 Tachy-danish syndrome Venous insufficiency of both lower extremities Vitamin B12 deficiency Surgical History Amputation toe Right great toe amputation (08/12/20): MAC at [facility] Gastric bypass status for obesity History of amputation of lesser toe of right foot History of esophagogastroduodenoscopy (EGD) History of hand surgery Tendon transfer History of vascular surgery Left popliteal, EVELINE TPT/proximal 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 (10/2019) Right great toe I&D, revision amputation (08/21/20): MAC at [facility] Hx of angioplasty Family History Brother Diabetes Mother Diabetes Father Diabetes Other Cancer Hypertension Social History Smoking Status: Never smoker Tobacco Type: Cigarettes Second Hand Exposure: No; Do You Dip or Chew Tobacco: No; Tobacco Cessation Education Requested by Patient: No Hx Alcohol Use: Yes Alcohol type: beer and wine Alcohol Intake Frequency: Monthly or Less Hx Substance Use: No Preferred Language: Syriac 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 Ability: Effective Visual Impairment: Limited Hearing Ability: Normal Hazardous Materials Waste Technician Required: No Beliefs That Will Affect Care: None marital status: Current Living Situation: Alone Current Living Situation Comment: daughter lives upstairs and can provide help current occupational status: retired How many Children do You have: 2 Other Information That Helps Us Care for You: No Feels Safe at Home: Yes Safety Concerns: Feels Safe At This Time Diet Comment: Educated to increase protein, vitamin c, d and zinc Assistive Devices: Cane Review of Systems Review of Systems: All systems reviewed & are unremarkable except as noted in HPI & below Physical Exam Constitutional: + ill appearing; no acute distress Eyes: PERRL, conjunctivae normal, anicteric sclerae Neck: trachea midline, no thyromegaly Respiratory: normal respiratory effort, lungs clear to auscultation Cardiovascular: Rate/Rhythm: regular rhythm (Atrial fibrillation with ventricular pacing) Vessels: no JVD Chest (Breasts): Chest: + pacemaker (Left shoulder without irritation or tenderness) Gastrointestinal (Abdomen): normal bowel sounds, soft, nontender, no hepatosplenomegaly Musculoskeletal: Erythema right lower extremity extending up the lateral aspect of leg and thigh to the hip Results & Data Vital Signs (Past 12 Hours) Vital Signs Temp Pulse Resp BP Pulse Ox O2 Del Method 10/08/22 11:43 36.9 C 60 20 113/69 95 Room Air 10/08/22 07:44 36.9 C 60 20 120/72 95 Room Air 10/08/22 04:25 36.7 C 61 20 116/66 94 Room Air Laboratory Results Laboratory Results - last 24 hr 10/07/22 10/07/22 10/07/22 15:10 15:10 15:42 WBC 11.60 H RBC 4.60 L Hgb 13.0 L Hct 39.9 L MCV 86.7 MCH 28.3 MCHC 32.6 RDW Std Deviation 53.7 H RDW Coeff of Jason 17.0 H Plt Count 173 MPV 10.9 Immature Gran % (Auto) 0.5 Neut % (Auto) 89.4 Lymph % (Auto) 4.1 [place] % (Auto) 5.9 Eos % (Auto) 0.0 Baso % (Auto) 0.1 Neut # (Auto) 10.37 H Lymph # (Auto) 0.47 L [place] # (Auto) 0.69 H Eos # (Auto) 0.00 Baso # (Auto) 0.01 Immature Gran # (Auto) 0.06 PT INR Sodium 133 L Potassium 4.0 Chloride 106 Carbon Dioxide 20 L Anion Gap 7 BUN 33 H Creatinine 1.93 H Est Cr Clr Drug Dosing 44.7 Est GFR ( Amer) 39.7 Est GFR (Non-Af Amer) 34.3 BUN/Creatinine Ratio 17.1 Glucose 170 H POC Glucose Estimat Average Glucose Hemoglobin A1c Calcium 8.4 L Magnesium Total Bilirubin 1.5 H Direct Bilirubin AST 31 ALT 23 Alkaline Phosphatase 62 Total Creatine Kinase Troponin I High Sens B-Natriuretic Peptide Total Protein 7.2 Albumin 3.3 L Globulin 3.9 Albumin/Globulin Ratio 0.8 L Urine Color Dark Yellow Urine Appearance Cloudy A Urine pH 5.5 Ur Specific Beatty 1.034 H Urine Protein 3+ H Urine Glucose (UA) 3+ H Urine Ketones Trace H Urine Blood 2+ H Urine Nitrite Negative Urine Bilirubin 1+ H Urine Urobilinogen Negative Ur Leukocyte Esterase Negative Urine WBC (Auto) 5-10 H Urine RBC (Auto) 5-10 H U Hyaline Cast (Auto) 5-10 H U Epithel Cells (Auto) 10-20 H Urine Bacteria (Auto) Negative Urine Yeast Not Reportable Hepatitis C Ab (EIA) 10/07/22 10/07/22 10/07/22 17:09 17:09 19:02 WBC RBC Hgb Hct MCV MCH MCHC RDW Std Deviation RDW Coeff of Jason Plt Count MPV Immature Gran % (Auto) Neut % (Auto) Lymph % (Auto) [place] % (Auto) Eos % (Auto) Baso % (Auto) Neut # (Auto) Lymph # (Auto) [place] # (Auto) Eos # (Auto) Baso # (Auto) Immature Gran # (Auto) PT INR Sodium Potassium Chloride Carbon Dioxide Anion Gap BUN Creatinine Est Cr Clr Drug Dosing Est GFR ( Amer) Est GFR (Non-Af Amer) BUN/Creatinine Ratio Glucose POC Glucose Estimat Average Glucose Hemoglobin A1c Calcium Magnesium Total Bilirubin Direct Bilirubin AST ALT Alkaline Phosphatase Total Creatine Kinase Troponin I High Sens 31.4 H 34.3 H B-Natriuretic Peptide 453 H Total Protein Albumin Globulin Albumin/Globulin Ratio Urine Color Urine Appearance Urine pH Ur Specific Beatty Urine Protein Urine Glucose (UA) Urine Ketones Urine Blood Urine Nitrite Urine Bilirubin Urine Urobilinogen Ur Leukocyte Esterase Urine WBC (Auto) Urine RBC (Auto) U Hyaline Cast (Auto) U Epithel Cells (Auto) Urine Bacteria (Auto) Urine Yeast Hepatitis C Ab (EIA) 10/07/22 10/07/22 10/07/22 19:02 19:02 21:39 WBC RBC Hgb Hct MCV MCH MCHC RDW Std Deviation RDW Coeff of Jason Plt Count MPV Immature Gran % (Auto) Neut % (Auto) Lymph % (Auto) [place] % (Auto) Eos % (Auto) Baso % (Auto) Neut # (Auto) Lymph # (Auto) [place] # (Auto) Eos # (Auto) Baso # (Auto) Immature Gran # (Auto) PT 31.9 H INR 3.1 H Sodium Potassium Chloride Carbon Dioxide Anion Gap BUN Creatinine Est Cr Clr Drug Dosing Est GFR ( Amer) Est GFR (Non-Af Amer) BUN/Creatinine Ratio Glucose POC Glucose 143 H Estimat Average Glucose Hemoglobin A1c Calcium Magnesium Total Bilirubin Direct Bilirubin 0.4 H AST ALT Alkaline Phosphatase Total Creatine Kinase Troponin I High Sens B-Natriuretic Peptide Total Protein Albumin Globulin Albumin/Globulin Ratio Urine Color Urine Appearance Urine pH Ur Specific Beatty Urine Protein Urine Glucose (UA) Urine Ketones Urine Blood Urine Nitrite Urine Bilirubin Urine Urobilinogen Ur Leukocyte Esterase Urine WBC (Auto) Urine RBC (Auto) U Hyaline Cast (Auto) U Epithel Cells (Auto) Urine Bacteria (Auto) Urine Yeast Hepatitis C Ab (EIA) 10/07/22 10/08/22 10/08/22 23:17 04:37 04:37 WBC 12.39 H RBC 4.44 L Hgb 12.5 L Hct 37.1 L MCV 83.6 MCH 28.2 MCHC 33.7 RDW Std Deviation 51.2 H RDW Coeff of Jason 16.8 H Plt Count 153 MPV 10.8 Immature Gran % (Auto) 0.6 Neut % (Auto) 85.9 Lymph % (Auto) 6.3 [place] % (Auto) 6.6 Eos % (Auto) 0.4 Baso % (Auto) 0.2 Neut # (Auto) 10.64 H Lymph # (Auto) 0.78 L [place] # (Auto) 0.82 H Eos # (Auto) 0.05 Baso # (Auto) 0.02 Immature Gran # (Auto) 0.08 PT 31.7 H INR 3.1 H Sodium Potassium Chloride Carbon Dioxide Anion Gap BUN Creatinine Est Cr Clr Drug Dosing Est GFR ( Amer) Est GFR (Non-Af Amer) BUN/Creatinine Ratio Glucose POC Glucose Estimat Average Glucose Hemoglobin A1c Calcium Magnesium Total Bilirubin Direct Bilirubin AST ALT Alkaline Phosphatase Total Creatine Kinase 38 Troponin I High Sens 35.8 H B-Natriuretic Peptide Total Protein Albumin Globulin Albumin/Globulin Ratio Urine Color Urine Appearance Urine pH Ur Specific Beatty Urine Protein Urine Glucose (UA) Urine Ketones Urine Blood Urine Nitrite Urine Bilirubin Urine Urobilinogen Ur Leukocyte Esterase Urine WBC (Auto) Urine RBC (Auto) U Hyaline Cast (Auto) U Epithel Cells (Auto) Urine Bacteria (Auto) Urine Yeast Hepatitis C Ab (EIA) 10/08/22 10/08/22 10/08/22 04:37 04:37 04:37 WBC RBC Hgb Hct MCV MCH MCHC RDW Std Deviation RDW Coeff of Jason Plt Count MPV Immature Gran % (Auto) Neut % (Auto) Lymph % (Auto) [place] % (Auto) Eos % (Auto) Baso % (Auto) Neut # (Auto) Lymph # (Auto) [place] # (Auto) Eos # (Auto) Baso # (Auto) Immature Gran # (Auto) PT INR Sodium 134 L Potassium 3.5 Chloride 106 Carbon Dioxide 19 L Anion Gap 9 BUN 34 H Creatinine 1.76 H Est Cr Clr Drug Dosing 48.3 Est GFR ( Amer) 44.4 Est GFR (Non-Af Amer) 38.3 BUN/Creatinine Ratio 19.3 Glucose 133 H POC Glucose Estimat Average Glucose 146 Hemoglobin A1c 6.7 H Calcium 8.3 L Magnesium 1.7 Total Bilirubin 1.1 H Direct Bilirubin AST 29 ALT 24 Alkaline Phosphatase 62 Total Creatine Kinase Troponin I High Sens 34.7 H B-Natriuretic Peptide Total Protein 6.8 Albumin 3.0 L Globulin 3.8 Albumin/Globulin Ratio 0.8 L Urine Color Urine Appearance Urine pH Ur Specific Beatty Urine Protein Urine Glucose (UA) Urine Ketones Urine Blood Urine Nitrite Urine Bilirubin Urine Urobilinogen Ur Leukocyte Esterase Urine WBC (Auto) Urine RBC (Auto) U Hyaline Cast (Auto) U Epithel Cells (Auto) Urine Bacteria (Auto) Urine Yeast Hepatitis C Ab (EIA) Pending 10/08/22 10/08/22 07:41 11:46 WBC RBC Hgb Hct MCV MCH MCHC RDW Std Deviation RDW Coeff of Jason Plt Count MPV Immature Gran % (Auto) Neut % (Auto) Lymph % (Auto) [place] % (Auto) Eos % (Auto) Baso % (Auto) Neut # (Auto) Lymph # (Auto) [place] # (Auto) Eos # (Auto) Baso # (Auto) Immature Gran # (Auto) PT INR Sodium Potassium Chloride Carbon Dioxide Anion Gap BUN Creatinine Est Cr Clr Drug Dosing Est GFR ( Amer) Est GFR (Non-Af Amer) BUN/Creatinine Ratio Glucose POC Glucose 121 H 123 H Estimat Average Glucose Hemoglobin A1c Calcium Magnesium Total Bilirubin Direct Bilirubin AST ALT Alkaline Phosphatase Total Creatine Kinase Troponin I High Sens B-Natriuretic Peptide Total Protein Albumin Globulin Albumin/Globulin Ratio Urine Color Urine Appearance Urine pH Ur Specific [place] Urine Protein Urine Glucose (UA) Urine Ketones Urine Blood Urine Nitrite Urine Bilirubin Urine Urobilinogen Ur Leukocyte Esterase Urine WBC (Auto) Urine RBC (Auto) U Hyaline Cast (Auto) U Epithel Cells (Auto) Urine Bacteria (Auto) Urine Yeast Hepatitis C Ab (EIA) Diagnostic Findings Echocardiogram 10/04/2022 The LV wall thickness is mildly increased (concentric). The septal motion is abnormal consistent with right ventricular pacemaker. The regional left ventricular wall motion is otherwise normal. The qualitative LV ejection fraction is 55-59% (normal). Mild aortic valve sclerosis is present. There is mild mitral annular calcification. The left atrium is severely enlarged (>48 ml/m^2,). Mild tricuspid regurgitation is present. Mild pulmonary hypertension is present.
[2022-10-08] MEDS: MULTIVITAMIN CHEWABLE TAB PO SCH (14:52)
--- NOTE | 2022-10-08 15:00 | Hospitalist Progress Note ---
Date of Service October 08, 2022 Assessment & Plan (1) Cellulitis of right lower extremity: (2) Acute dyspnea: (3) CHF (congestive heart failure): (4) Diabetes type 2 with atherosclerosis of arteries of extremities: (5) Hx MRSA infection: (6) Acute kidney injury superimposed on chronic kidney disease: (7) Atrial fibrillation: (8) Pacemaker: Plan: Patient is a 72 yr male with H/O Chronic atrial fibrillation anticoagulated on warfarin cardiac pacemaker in situ, CAD with history of coronary stent HTN, PAD, history of CVA, venous insufficiency T2DM with neuropathy, CKD stage IIIb, hyperparathyroidism, hyperlipidemia, sleep apnea on BiPAP, vitamin D deficiency, vitamin B12 deficiency, history of toe amputations R great toe/2and 3rd distal phalanx, history of gastric bypass, depression who presents secondary to shortness of breath x 2 weeks. Right lower extremity cellulitis Right diabetic foot wound-POA H/O MRSA Chronic venous stasis --Venous Doppler:No evidence of deep venous thrombus within the bilateral lower extremities. Mildly enlarged right inguinal lymph node. This node contains a fatty hilum and is probably benign. This may be reactive. A follow-up right groin ultrasound in 3 months is recommended to ensure stability/resolution. -- Blood cultures pending Continue Cefepime and Daptomycin Needs right groin ultrasound in 3 months to ensure resolution of lymphadenopathy Follows with wound clinic as outpatient Dyspnea on exertion Likely secondary to above Chronic diastolic heart failure likely contributing as well --CXR:No acute abnormalities and in particular no radiographic evidence of pneumonia. Stable cardiomegaly. --ECHO outpatient 10/04/2022 which showed normal LVEF of 55%, mildly increased concentric LVH, septal motion abnormal consistent with right ventricular pacemaker, mild aortic valve sclerosis present mild TR mild pulmonary hypertension On Lasix as needed at home Appreciate cardiology input Continue Lasix as needed for leg edema Saturating well on room air Monitor volume status Abnormal UA Urine Culture pending follow up cultures Chronic atrial fib H/O tachybradycardia syndrome S/P PPM Supratherapeutic INR Continue Coumadin for anticoagulation Monitor INR 3.1 today JORGE on CKD III Baseline Cr:~ 1.5 Monitor renal function Avoid nephrotoxic agents as able DM II PAD/PVD/Neuropathy/Ulcer HbA1c 6.7 hold Jardiance Continue Lantus/NovoLog per protocol MINERVA Bipap at HS HLD On Statin hold statin while on Dapto Code Status FULL CODE Admission and Anticipated Discharge Date Admission Date: October 07, 2022 Subjective Patient is seen and examined at bedside States having dyspnea Also reports right lower extremity erythema, swelling Denies any significant pain of right lower extremity Also denies any chest pain, dizziness, nausea, vomiting, abdominal pain Discussed with cardiology today Review of Systems Review of Systems: All systems reviewed & are unremarkable except as noted in Subjective Physical Exam Physical Exam: Physical Exam: Vitals signs as noted above General Appearance:Moderately built and nourished, no apparent distress, Chronic ill appearing Head: normocephalic, Atraumatic Eyes: normal inspection, EOMI Neck: supple, Trachea midline Respiratory/Chest: Normal breath sounds, CTA, No accessory muscle use Cardiovascular: S1, S2, No murmur, +Pacemaker Abdomen/GI:Soft, Non tender, Bowel sounds present Extremities/Musculoskeletal:normal inspection, RLE edematous, erythema Neurologic/Psych:AAOX3, grossly no focal neurological deficits Skin: normal color, warm Results & Data Results & Data Vital Signs (Past 12 Hours) Vital Signs Temp Pulse Resp BP Pulse Ox O2 Del Method 10/08/22 11:43 36.9 C 60 20 113/69 95 Room Air 10/08/22 07:44 36.9 C 60 20 120/72 95 Room Air 10/08/22 04:25 36.7 C 61 20 116/66 94 Room Air Laboratory Results Short CBC 10/07/22 10/08/22 Range/Units 15:10 04:37 WBC 11.60 H 12.39 H (4.8-10.8) K/ul Hgb 13.0 L 12.5 L (14.0-18.0) g/dl Hct 39.9 L 37.1 L (42.0-52.0) % Plt Count 173 153 (130-400) K/uL BMP 10/07/22 10/08/22 15:10 04:37 Sodium 133 L 134 L Potassium 4.0 3.5 Chloride 106 106 Carbon Dioxide 20 L 19 L BUN 33 H 34 H Creatinine 1.93 H 1.76 H Glucose 170 H 133 H Calcium 8.4 L 8.3 L Cardiac Enzymes 10/07/22 Range/Units 23:17 Total Creatine Kinase 38 (30-223) U/L Liver Function 08/25/23 08/25/23 08/26/23 Range/Units 15:10 19:02 04:37 Total Bilirubin 1.5 H 1.1 H (0.2-1.0) mg/dl Direct Bilirubin 0.4 H (0-0.2) mg/dl AST 31 29 (13-39) U/L ALT 23 24 (7-52) U/L Alkaline Phosphatase 62 62 (34-104) U/L Albumin 3.3 L 3.0 L (3.4-5.0) gm/dl Urine 10/07/22 Range/Units 15:42 Urine Color Dark Yellow Urine Appearance Cloudy A (Clear) Urine pH 5.5 (4.5-7.5) Ur Specific [employer] 1.034 H (1.000-1.030) Urine Protein 3+ H (Negative) Urine Glucose (UA) 3+ H (Negative)
[2022-10-08] MEDS ORDERED: WARFARIN SOD 3 MG TAB PO SCH (16:00)
[2022-10-08] MEDS: CHOLECALCIFEROL 1,000 UNITS 25 MCG TAB PO SCH (20:57)
[2022-10-08] MEDS: CYANOCOBALAMIN (B-12) 500 MCG TABLET PO SCH (20:57)
[2022-10-08] MEDS: TAMSULOSIN HCL 0.4 MG CAP PO SCH (20:58)
[2022-10-08] MEDS: DAPTOmycin 350 MG in SYRINGE 0 ML IV SCH (21:03)
[2022-10-08] MEDS: ACETAMINOPHEN 325 MG TAB PO PRN (22:17)
[2022-10-09 05:27] LABS: Hematocrit (blood only) 36.2 % (42.0-52.0); Hemoglobin 12.2 g/dl (14.0-18.0); Mean Corpuscular Hemoglobin 28.3 pg (25.0-34.0); Mean Corpuscular Hgb Conc 33.7 g/dL (32.0-36.0); Mean Platelet Volume 11.2 fL (9.4-12.4); Platelet Count 160 K/uL (130-400); RDW Coefficient of Variation 16.6 % (11.5-14.5); RDW Standard Deviation 51.5 fL (36.4-46.3); Red Blood Count 4.31 M/uL (4.70-6.10); White Blood Count 9.16 K/ul (4.8-10.8)
[2022-10-09 05:43] LABS: BUN Creatinine Ratio 24.7 (10-20); Calcium 8.1 mg/dl (8.6-10.3); Creatinine Clr Calc Pharmacy 55.9 ml/min; Est GFR (African American) 53.9 ml/min; Est GFR (Non-African American) 46.5 ml/min; Magnesium 1.8 mg/dl (1.7-2.4); Potassium 3.1 mmol/L (3.5-5.1)
[2022-10-09 06:05] LABS: INR 3.7 (0.9-1.1); Prothrombin Time 37.6 Seconds (9.0-12.0)
[2022-10-09] MEDS: ASPIRIN 81 MG ECTAB PO SCH (08:34)
[2022-10-09] MEDS: INSULIN ASPART PER UNIT CHARGE SC SCH ×4 (08:34→20:33)
[2022-10-09] MEDS: MAGNESIUM OXIDE 400 MG TAB PO SCH (08:35)
[2022-10-09] MEDS: LANTUS PER UNIT CHARGE SQ SCH ×2 (08:35→20:33)
[2022-10-09] MEDS: LOSARTAN POTASSIUM 50 MG TAB PO SCH (08:35)
[2022-10-09] MEDS: SACCHAROMYCES BOULARDII 250 MG CAP PO SCH (08:36)
[2022-10-09] MEDS: MULTIVITAMIN CHEWABLE TAB PO SCH (08:36)
[2022-10-09] MEDS: CEFEPIME 2,000 MG in SYRINGE 0 ML IV SCH ×2 (10:09→20:38)
[2022-10-09] MEDS ORDERED: POTASSIUM CHLORIDE CRTAB 20 MEQ TABCR PO ONE ×2 (10:41→16:00)
--- NOTE | 2022-10-09 12:55 | Cardiology Progress Note ---
Date of Service October 09, 2022 Assessment & Plan (1) Cellulitis of right lower extremity: (2) Acute dyspnea: (3) Acute kidney injury superimposed on chronic kidney disease: (4) Atrial fibrillation: (5) Pacemaker: (6) Diabetic ulcer of right foot: Plan Patient is a very complex 72-year-old male presented with symptoms of increasing fatigue and dyspnea. Examination reflects evidence of significant cellulitis right lower extremity. Exam is not consistent with acute congestive heart failure with clear chest x- ray, no evidence of jugular venous distention, known preserved LV systolic function and laboratory studies reflecting mild azotemia Would treat underlying infectious process. Expand cultures to include blood and urine Troponins are elevated but flat and consistent with patient's acute illness We will obtain pacemaker interrogation from day prior with device approaching SURESH. No indications for acute intervention 10/10/2019 Cardiac status stable no signs or symptoms of congestive heart failure With spontaneous diuresis treating underlying infection. Agree with supplementation of potassium Given extensive soft tissue infection would avoid resuming Jardiance on discharge Admission and Anticipated Discharge Date Admission Date: October 07, 2022 Subjective Patient seen and examined, chart, medications, telemetry reviewed. Overall appears improved from examination day prior. Still with significant cellulitis entire right leg and in the flank Dyspnea has improved No chest pain or discomfort Lower extremity edema improved but still persistent right leg Review of Systems Review of Systems: All systems reviewed & are unremarkable except as noted in Subjective Physical Exam Constitutional: no acute distress Eyes: PERRL, conjunctivae normal, anicteric sclerae Neck: trachea midline, no thyromegaly Respiratory: normal respiratory effort, lungs clear to auscultation Cardiovascular: Rate/Rhythm: regular rhythm (Atrial fibrillation with ventricular pacing) Vessels: no JVD Extremities: + edema (2+ slight leg with contraction) Chest (Breasts): Chest: + pacemaker (Left shoulder without irritation or tenderness) Gastrointestinal (Abdomen): normal bowel sounds, soft, nontender, no hepatosplenomegaly Results & Data Vital Signs (Past 12 Hours) Vital Signs Temp Pulse Resp BP Pulse Ox O2 Del Method 10/09/22 11:31 36.9 C 62 18 112/69 98 Room Air 10/09/22 07:29 36.6 C 60 19 118/69 97 Room Air 10/09/22 04:07 36.5 C 62 20 113/67 96 Room Air Laboratory Results Laboratory Results - last 24 hr 10/08/22 10/08/22 10/08/22 04:37 16:54 20:37 WBC RBC Hgb Hct MCV MCH MCHC RDW Std Deviation RDW Coeff of Jason Plt Count MPV PT INR Sodium Potassium Chloride Carbon Dioxide Anion Gap BUN Creatinine Est Cr Clr Drug Dosing Est GFR ( Amer) Est GFR (Non-Af Amer) BUN/Creatinine Ratio Glucose POC Glucose 124 H 127 H Calcium Magnesium Hepatitis C Ab (EIA) NON-REACTIVE 10/09/22 10/09/22 10/09/22 04:50 04:50 04:50 WBC 9.16 RBC 4.31 L Hgb 12.2 L Hct 36.2 L MCV 84.0 MCH 28.3 MCHC 33.7 RDW Std Deviation 51.5 H RDW Coeff of Jason 16.6 H Plt Count 160 MPV 11.2 PT 37.6 H INR 3.7 H Sodium 136 Potassium 3.1 L Chloride 108 H Carbon Dioxide 22 Anion Gap 6 BUN 37 H Creatinine 1.50 H Est Cr Clr Drug Dosing 55.9 Est GFR ( Amer) 53.9 Est GFR (Non-Af Amer) 46.5 BUN/Creatinine Ratio 24.7 H Glucose 86 POC Glucose Calcium 8.1 L Magnesium 1.8 Hepatitis C Ab (EIA) 10/09/22 10/09/22 07:44 11:33 WBC RBC Hgb Hct MCV MCH MCHC RDW Std Deviation RDW Coeff of Jason Plt Count MPV PT INR Sodium Potassium Chloride Carbon Dioxide Anion Gap BUN Creatinine Est Cr Clr Drug Dosing Est GFR ( Amer) Est GFR (Non-Af Amer) BUN/Creatinine Ratio Glucose POC Glucose 81 120 H Calcium Magnesium Hepatitis C Ab (EIA)
--- NOTE | 2022-10-09 16:38 | Hospitalist Progress Note ---
Date of Service October 09, 2022 Assessment & Plan (1) Cellulitis of right lower extremity: (2) Acute dyspnea: (3) CHF (congestive heart failure): (4) Diabetes type 2 with atherosclerosis of arteries of extremities: (5) Hx MRSA infection: (6) Acute kidney injury superimposed on chronic kidney disease: (7) Atrial fibrillation: (8) Pacemaker: Plan: Patient is a 72 yr male with H/O Chronic atrial fibrillation anticoagulated on warfarin cardiac pacemaker in situ, CAD with history of coronary stent HTN, PAD, history of CVA, venous insufficiency T2DM with neuropathy, CKD stage IIIb, hyperparathyroidism, hyperlipidemia, sleep apnea on BiPAP, vitamin D deficiency, vitamin B12 deficiency, history of toe amputations R great toe/2and 3rd distal phalanx, history of gastric bypass, depression who presents secondary to shortness of breath x 2 weeks. Right lower extremity cellulitis Right diabetic foot wound-POA H/O MRSA Chronic venous stasis --Venous Doppler:No evidence of deep venous thrombus within the bilateral lower extremities. Mildly enlarged right inguinal lymph node. This node contains a fatty hilum and is probably benign. This may be reactive. A follow-up right groin ultrasound in 3 months is recommended to ensure stability/resolution. -- Blood cultures negative to date Continue Cefepime and Daptomycin Needs right groin ultrasound in 3 months to ensure resolution of lymphadenopathy Follows with wound clinic as outpatient Continue current management Dyspnea on exertion Likely secondary to above Chronic diastolic heart failure likely contributing as well --CXR:No acute abnormalities and in particular no radiographic evidence of pneumonia. Stable cardiomegaly. --ECHO outpatient 10/04/2022 which showed normal LVEF of 55%, mildly increased concentric LVH, septal motion abnormal consistent with right ventricular pacemaker, mild aortic valve sclerosis present mild TR mild pulmonary hypertension On Lasix as needed at home Appreciate cardiology input Continue Lasix as needed for leg edema Saturating well on room air Monitor volume status Hypokalemia Replete electrolytes as needed Chronic atrial fib H/O tachybradycardia syndrome S/P PPM Supratherapeutic INR Monitor INR 3.7 today Hold Coumadin today JORGE on CKD III Baseline Cr:~ 1.5 Monitor renal function Avoid nephrotoxic agents as able Abnormal UA Urine Culture probable skin zehra DM II PAD/PVD/Neuropathy/Ulcer HbA1c 6.7 hold Jardiance--consider to discontinue upon discharge Continue Lantus/NovoLog per protocol MINERVA Bipap at HS HLD On Statin hold statin while on Dapto Code Status FULL CODE Admission and Anticipated Discharge Date Admission Date: October 07, 2022 Subjective Patient is seen and examined at bedside States feeling better today Less dyspnea today Leg edema, erythema slowly improving Denies any chest pain, dizziness, nausea, vomiting, abdominal pain No new complaints Review of Systems Review of Systems: All systems reviewed & are unremarkable except as noted in Subjective Physical Exam Physical Exam: Physical Exam: Vitals signs as noted above General Appearance:Moderately built and nourished, no apparent distress, Chronic ill appearing Head: normocephalic, Atraumatic Eyes: normal inspection, EOMI Neck: supple, Trachea midline Respiratory/Chest: Normal breath sounds, CTA, No accessory muscle use Cardiovascular: S1, S2, No murmur, +Pacemaker Abdomen/GI:Soft, Non tender, Bowel sounds present Extremities/Musculoskeletal:normal inspection, RLE edematous, erythema Neurologic/Psych:AAOX3, grossly no focal neurological deficits Skin: normal color, warm Results & Data Results & Data Vital Signs (Past 12 Hours) Vital Signs Temp Pulse Resp BP Pulse Ox O2 Del Method 10/09/22 15:56 36.4 C L 60 19 118/72 97 Room Air 10/09/22 11:31 36.9 C 62 18 112/69 98 Room Air 10/09/22 07:29 36.6 C 60 19 118/69 97 Room Air Laboratory Results Short CBC 10/09/22 Range/Units 04:50 WBC 9.16 (4.8-10.8) K/ul Hgb 12.2 L (14.0-18.0) g/dl Hct 36.2 L (42.0-52.0) % Plt Count 160 (130-400) K/uL BMP 10/09/22 04:50 Sodium 136 Potassium 3.1 L Chloride 108 H Carbon Dioxide 22 BUN 37 H Creatinine 1.50 H Glucose 86 Calcium 8.1 L
[2022-10-09] MEDS: TAMSULOSIN HCL 0.4 MG CAP PO SCH (20:32)
[2022-10-09] MEDS: CHOLECALCIFEROL 1,000 UNITS 25 MCG TAB PO SCH (20:32)
[2022-10-09] MEDS: CYANOCOBALAMIN (B-12) 500 MCG TABLET PO SCH (20:32)
[2022-10-09] MEDS: DAPTOmycin 350 MG in SYRINGE 0 ML IV SCH (20:38)
[2022-10-10] MEDS: ACETAMINOPHEN 325 MG TAB PO PRN (02:23)
[2022-10-10 06:11] LABS: Hematocrit (blood only) 36.1 % (42.0-52.0); Hemoglobin 11.9 g/dl (14.0-18.0); Mean Corpuscular Hemoglobin 28.1 pg (25.0-34.0); Mean Corpuscular Volume 85.1 fL (80.0-100.0); Platelet Count 183 K/uL (130-400); RDW Coefficient of Variation 16.5 % (11.5-14.5); RDW Standard Deviation 51.3 fL (36.4-46.3); Red Blood Count 4.24 M/uL (4.70-6.10); White Blood Count 6.23 K/ul (4.8-10.8)
[2022-10-10 06:18] LABS: INR 2.9 (0.9-1.1); Prothrombin Time 29.4 Seconds (9.0-12.0)
[2022-10-10 06:38] LABS: BUN Creatinine Ratio 22.1 (10-20); Calcium 8.3 mg/dl (8.6-10.3); Creatinine Clr Calc Pharmacy 61.8 ml/min; Est GFR (African American) 60.7 ml/min; Est GFR (Non-African American) 52.3 ml/min; Potassium 3.7 mmol/L (3.5-5.1)
[2022-10-10] MEDS: LANTUS PER UNIT CHARGE SQ SCH ×2 (08:16→20:26)
[2022-10-10] MEDS: MAGNESIUM OXIDE 400 MG TAB PO SCH (08:17)
[2022-10-10] MEDS: LOSARTAN POTASSIUM 50 MG TAB PO SCH (08:17)
[2022-10-10] MEDS: ASPIRIN 81 MG ECTAB PO SCH (08:17)
[2022-10-10] MEDS: MULTIVITAMIN CHEWABLE TAB PO SCH (08:17)
[2022-10-10] MEDS: SACCHAROMYCES BOULARDII 250 MG CAP PO SCH (08:18)
[2022-10-10] MEDS: INSULIN ASPART PER UNIT CHARGE SC SCH ×4 (08:22→20:26)
--- NOTE | 2022-10-10 08:25 | Cardiology Progress Note ---
Date of Service October 10, 2022 Assessment & Plan (1) Cellulitis of right lower extremity: (2) Acute dyspnea: (3) Acute kidney injury superimposed on chronic kidney disease: (4) Atrial fibrillation: (5) Pacemaker: (6) Diabetic ulcer of right foot: Plan IMPRESSION: Patient is a very complex 72-year-old male presented with symptoms of increasing fatigue and dyspnea. Examination reflects evidence of significant cellulitis right lower extremity. Exam is not consistent with acute congestive heart failure with clear chest x- ray, no evidence of jugular venous distention, known preserved LV systolic function and laboratory studies reflecting mild azotemia Would treat underlying infectious process. Expand cultures to include blood and urine- urine: no growth, blood- prelim no growth Troponins are elevated but flat and consistent with patient's acute illness PLAN: -Cardiac status stable no signs or symptoms of congestive heart failure with spontaneous diuresis treating underlying infection. -Diuretics remain on hold. -Agree with supplementation of potassium, goal potassium of 4.0 and mag of 2.0. -Given extensive soft tissue infection would avoid resuming Jardiance on discharge -We will obtain pacemaker interrogation from day prior with device approaching SURESH. No indications for acute intervention Case discussed with Dr. Mata- will follow. Admission and Anticipated Discharge Date Admission Date: October 07, 2022 Supervising Physician Co-Signing Physician Notes Patient seen and examined, chart, medications, telemetry reviewed. Pacemaker not at SURESH Recommendations as above, treat underlying infectious process Subjective Patient is a very complex 72-year-old male presented with symptoms of increasing fatigue and dyspnea. Examination reflects evidence of significant cellulitis right lower extremity. 10/10/2022: Patient seen and examined, chart, medications, telemetry reviewed. Tele: V-Paced 60s Renal function improving. Receiving IV abx. Patient without acute concerns. Dyspnea improved from admission. No chest pain or palpitations. No lightheadedness. Still with significant cellulitis entire right leg and in the flank Lower extremity edema improved but still persistent right leg 10/09/2022 Spontaneous diuresis noted with treatment of underlying infection. Jardiance discontinued due to extensive soft tissue infection. Review of Systems Review of Systems: All systems reviewed & are unremarkable except as noted in HPI & below Physical Exam Constitutional: + ill appearing; no acute distress Eyes: PERRL, conjunctivae normal, anicteric sclerae Neck: trachea midline, no thyromegaly Respiratory: normal respiratory effort, lungs clear to auscultation Cardiovascular: Rate/Rhythm: regular rhythm (Atrial fibrillation with ventricular pacing) Vessels: no JVD Extremities: + edema (2+ right leg ) Chest (Breasts): Chest: + pacemaker (Left shoulder without irritation or tenderness) Gastrointestinal (Abdomen): normal bowel sounds, soft, nontender, no hepatosplenomegaly Skin: + erythema (right leg ) Psychiatric: A+Ox3, euthymic affect Results & Data Vital Signs (Past 12 Hours) Vital Signs Temp Pulse Pulse Resp BP Pulse Ox O2 Del Method 10/10/22 07:22 36.4 C L 60 18 118/71 97 Room Air 10/10/22 03:40 36.5 C 59 L 18 119/72 98 Room Air 10/09/22 23:32 60 10/09/22 23:20 36.6 C 60 18 122/73 96 Room Air Laboratory Results Coagulation 10/10/22 Range/Units 05:34 PT 29.4 H (9.0-12.0) Seconds CBC 10/10/22 Range/Units 05:34 WBC 6.23 (4.8-10.8) K/ul RBC 4.24 L (4.70-6.10) M/uL Hgb 11.9 L (14.0-18.0) g/dl Hct 36.1 L (42.0-52.0) % Plt Count 183 (130-400) K/uL Comprehensive Metabolic Panel 10/10/22 Range/Units 05:34 Sodium 137 (136-145) mmol/L Potassium 3.7 (3.5-5.1) mmol/L Chloride 111 H (98-107) mmol/L Carbon Dioxide 21 (21-32) mmol/L BUN 30 H (6-23) mg/dl Creatinine 1.36 (0.6-1.4) mg/dl Glucose 102 H (70-99(Fasting)) mg/dl Calcium 8.3 L (8.6-10.3) mg/dl Intake and Output 10/09/22 10/10/22 10/10/22 22:59 06:59 14:59 Intake Total 240 / 960 Output Total 101 / 501 100 / 501 Balance 139 / 459 -100 / 459 Intake: Oral 240 / 960 Output: Urine Amount (Catheter) 100 / 500 100 / 500 External 100 / 500 100 / 500 # Bowel Movements Other: Weight 103 kg Weight Measurement Method Built in [facility]
[2022-10-10] MEDS: CEFEPIME 2,000 MG in SYRINGE 0 ML IV SCH ×2 (10:53→20:27)
--- NOTE | 2022-10-10 13:53 | XRay Report ---
XR chest 1V portable CLINICAL HISTORY: Dyspnea. COMPARISON STUDY: Chest radiograph October 07, 2022. FINDINGS: Left subclavian pacer is in place. Moderate cardiomegaly is again noted. There is no eviden ce for pulmonary edema. No consolidation is identified. There is no pneumothorax or pleural effusion. IMPRESSION: No acute cardiopulmonary findings. ACT 112: Negative or not required by law. Electronically signed by: Jay Carrasco M.D. 10/10/2022 1:51 PM
[2022-10-10] MEDS ORDERED: WARFARIN SOD 6 MG TAB PO SCH (16:00)
[2022-10-10] MEDS ORDERED: FUROSEMIDE INJ 20 MG/2 ML VIAL IV ONE (17:15)
[2022-10-10] MEDS: WARFARIN SOD 2 MG TAB PO SCH (17:26)
--- NOTE | 2022-10-10 18:09 | Hospitalist Progress Note ---
Date of Service October 10, 2022 Assessment & Plan (1) Cellulitis of right lower extremity: (2) Acute dyspnea: (3) CHF (congestive heart failure): (4) Diabetes type 2 with atherosclerosis of arteries of extremities: (5) Hx MRSA infection: (6) Acute kidney injury superimposed on chronic kidney disease: (7) Atrial fibrillation: (8) Pacemaker: Plan: Patient is a 72 yr male with H/O Chronic atrial fibrillation anticoagulated on warfarin cardiac pacemaker in situ, CAD with history of coronary stent HTN, PAD, history of CVA, venous insufficiency T2DM with neuropathy, CKD stage IIIb, hyperparathyroidism, hyperlipidemia, sleep apnea on BiPAP, vitamin D deficiency, vitamin B12 deficiency, history of toe amputations R great toe/2and 3rd distal phalanx, history of gastric bypass, depression who presents secondary to shortness of breath x 2 weeks. Right lower extremity cellulitis Right diabetic foot wound-POA H/O MRSA Chronic venous stasis --Venous Doppler:No evidence of deep venous thrombus within the bilateral lower extremities. Mildly enlarged right inguinal lymph node. This node contains a fatty hilum and is probably benign. This may be reactive. A follow-up right groin ultrasound in 3 months is recommended to ensure stability/resolution. -- Blood cultures negative to date Continue Cefepime and Daptomycin Needs right groin ultrasound in 3 months to ensure resolution of lymphadenopathy Follows with wound clinic as outpatient Continue local wound care Consult podiatry for evaluation of foot wound Dyspnea on exertion Likely secondary to above Chronic diastolic heart failure likely contributing as well --CXR:No acute abnormalities and in particular no radiographic evidence of pneumonia. Stable cardiomegaly. --ECHO outpatient 10/04/2022 which showed normal LVEF of 55%, mildly increased concentric LVH, septal motion abnormal consistent with right ventricular pacemaker, mild aortic valve sclerosis present mild TR mild pulmonary hypertension On Lasix as needed at home Appreciate cardiology input Continue Lasix as needed for leg edema Saturating well on room air Monitor volume status Given a dose of IV Lasix today CXR today showed No acute cardiopulmonary findings. Will consider CT chest if needed Hypokalemia Replete electrolytes as needed Mild elevation of troponin Likely demand ischemia Monitor Chronic atrial fib H/O tachybradycardia syndrome S/P PPM Supratherapeutic INR Monitor INR 2.9 today Resume Coumadin--adjust dose as needed JORGE on CKD III Baseline Cr:~ 1.5 Monitor renal function Avoid nephrotoxic agents as able Abnormal UA Urine Culture probable skin zehra DM II PAD/PVD/Neuropathy/Ulcer HbA1c 6.7 hold Jardiance--do not resume on discharge given significant infection Continue Lantus/NovoLog per protocol MINERVA Bipap at HS HLD On Statin hold statin while on Dapto Code Status FULL CODE Admission and Anticipated Discharge Date Admission Date: October 07, 2022 Subjective Patient is seen and examined at bedside States having dyspnea today Chest x-ray showed no acute findings No other complaints Leg edema, erythema slowly improving Denies any chest pain, dizziness, nausea, vomiting, abdominal pain Review of Systems Review of Systems: All systems reviewed & are unremarkable except as noted in Subjective Physical Exam Physical Exam: Physical Exam: Vitals signs as noted above General Appearance:Moderately built and nourished, no apparent distress, Chronic ill appearing Head: normocephalic, Atraumatic Eyes: normal inspection, EOMI Neck: supple, Trachea midline Respiratory/Chest: Normal breath sounds, CTA, No accessory muscle use Cardiovascular: S1, S2, No murmur, +Pacemaker Abdomen/GI:Soft, Non tender, Bowel sounds present Extremities/Musculoskeletal:normal inspection, RLE edematous, erythema Neurologic/Psych:AAOX3, grossly no focal neurological deficits Skin: normal color, warm Results & Data Results & Data Vital Signs (Past 12 Hours) Vital Signs Temp Pulse Resp BP BP Pulse Ox O2 Del Method 10/10/22 16:30 36.3 C L 60 18 129/71 99 Room Air 10/10/22 11:40 36.5 C 64 18 101/67 99 Room Air 10/10/22 08:00 Room Air 10/10/22 07:22 36.4 C L 60 18 118/71 97 Room Air Laboratory Results Short CBC 10/10/22 Range/Units 05:34 WBC 6.23 (4.8-10.8) K/ul Hgb 11.9 L (14.0-18.0) g/dl Hct 36.1 L (42.0-52.0) % Plt Count 183 (130-400) K/uL BMP 10/10/22 05:34 Sodium 137 Potassium 3.7 Chloride 111 H Carbon Dioxide 21 BUN 30 H Creatinine 1.36 Glucose 102 H Calcium 8.3 L
[2022-10-10] MEDS: CYANOCOBALAMIN (B-12) 500 MCG TABLET PO SCH (20:25)
[2022-10-10] MEDS: CHOLECALCIFEROL 1,000 UNITS 25 MCG TAB PO SCH (20:26)
[2022-10-10] MEDS: TAMSULOSIN HCL 0.4 MG CAP PO SCH (20:26)
[2022-10-10] MEDS: DAPTOmycin 350 MG in SYRINGE 0 ML IV SCH (20:27)
--- NOTE | 2022-10-10 22:34 | Orthopedic Consultation ---
Date of Consultation October 10, 2022 Assessment & Plan (1) Diabetic ulcer of right foot: Patient seen, evaluated, and treated. Skin graft substitute intact. Outer dressing changed with out incident. Patinet is non weight bearing to right lower extremity. Off loading is an important part of this Patient's wound management. Will continue to follow Patient while in house. Thank you for allowing me to participate in the care of this Patient. (2) Cellulitis of right lower extremity: History of Present Illness Attending Physician: Erlin Chow MD History of Present Illness Patient is a 72-year-old male seen at bedside at [facility] for right foot wound and lower extremity cellulitis. Patient has a past medical history significant for chronic atrial fibrillation anticoagulated on warfarin cardiac pacemaker in situ, CAD with history of coronary stent HTN, PAD, history of CVA, venous insufficiency T2DM with neuropathy, CKD stage IIIb, hyperparathyroidism, hyperlipidemia, sleep apnea on BiPAP, vitamin D deficiency, vitamin B12 deficiency, history of toe amputations R great toe/2and 3rd distal phalanx, history of gastric bypass, and depression.He noticed increased swelling, redness to his right leg and presented to the [facility] ED on 10/07/22 where he was admitted for cellulitis. Patient has been seen by [facility] previously but most recent follows with [facility] for ulcer to the right foot. A skin graft substitute was applied a week earlier. He does not note any increasing pain to the foot but he does note increasing pain to the right leg. Allergies Allergy/AdvReac Type Severity Reaction Status Date / Time No Known Allergies Allergy Verified 05/12/22 11:02 Home Medications Medication Instructions Recorded Confirmed Type pediatric uyczstmb-gaum-slm 1 tab PO PM ##0 04/11/13 10/07/22 History (Flintstones Complete (iron) chewable tablet) atorvastatin 40 mg tablet 40 mg PO PM #0 tabs 01/08/17 10/07/22 History cholecalciferol (vitamin D3) 25 2,000 unit PO PM 10/18/17 10/07/22 History mcg (1,000 unit) capsule (Vitamin D3) cyanocobalamin (vitamin B-12) 1,000 mcg PO PM 05/06/19 10/07/22 History 1,000 mcg tablet furosemide 20 mg tablet 20 mg PO DAILY PRN swelling 05/06/19 10/07/22 History tamsulosin 0.4 mg capsule 0.4 mg PO PM 05/06/19 10/07/22 History magnesium oxide 400 mg PO DAILY 09/26/19 10/07/22 History losartan 50 mg tablet 50 mg PO DAILY 08/11/20 10/07/22 History triamcinolone acetonide 0.1 % 1 applic topical BID PRN Rash 08/11/20 10/07/22 History topical cream acetaminophen 500 mg tablet 1,000 mg PO Q6H PRN Pain 12/17/20 10/07/22 History aspirin 81 mg tablet 81 mg PO DAILY 12/21/20 10/07/22 History empagliflozin 10 mg tablet 10 mg PO DAILY 10/07/22 10/07/22 History (Jardiance) warfarin 3 mg tablet 3 mg PO SUTUWETHFRSA@1600 10/07/22 10/07/22 History warfarin 3 mg tablet 6 mg PO MO@1600 10/07/22 10/07/22 History Patient History Medical History Acute renal failure superimposed on stage 3 chronic kidney disease 08/2020 hospitalization, UTI and osteomyelitis, necrotizing fasciitis Atrial fibrillation CHF (congestive heart failure) Chronic anemia CKD (chronic kidney disease), stage III Complex sleep apnea syndrome CVA (cerebral vascular accident) 01/2018; residual right sided weakness Degenerative cervical spinal stenosis Degenerative lumbar spinal stenosis Depression Diabetes type 2, controlled NIDDM Diabetic peripheral neuropathy associated with type 2 diabetes mellitus Dyslipidemia Erectile dysfunction Esophageal obstruction Essential hypertension Hyperlipemia Hyperparathyroidism, secondary renal Hypertension 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 Mixed sleep apnea No device (previous BIPAP) Morbid obesity Myocardial Infarction 2017 > medically managed Nonalcoholic 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 (PLATT) Pacemaker Left, normal single chamber pacemaker function with stable pacing and sensing thresholds per pacer check 12/08/20 [facility] Paroxysmal SVT (supraventricular tachycardia) Peripheral arterial disease 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, 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, Right great toe amputation 07/2020 with revision 08/2020 Persistent proteinuria Proliferative diabetic retinopathy Sepsis 2013 Tachy-geronimo syndrome Venous insufficiency of both lower extremities Vitamin B12 deficiency Surgical History Amputation toe Right great toe amputation (08/12/20): MAC at [facility] Gastric bypass status for obesity History of amputation of lesser toe of right foot History of esophagogastroduodenoscopy (EGD) History of hand surgery Tendon transfer History of vascular surgery Left popliteal, 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 (10/2019) Right great toe I&D, revision amputation (08/21/20): MAC at [facility] Hx of angioplasty Family History Brother Diabetes Mother Diabetes Father Diabetes Other Cancer Hypertension Social History Smoking Status: Never smoker Tobacco Type: Cigarettes Second Hand Exposure: No; Do You Dip or Chew Tobacco: No; Tobacco Cessation Education Requested by Patient: No Hx Alcohol Use: Yes Alcohol type: beer and wine Alcohol Intake Frequency: Monthly or Less Hx Substance Use: No Preferred Language: Thai 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 Ability: Effective Visual Impairment: Limited Hearing Ability: Normal Shipping Room Helper Required: No Beliefs That Will Affect Care: None marital status: Current Living Situation: Alone Current Living Situation Comment: daughter lives upstairs and can provide help current occupational status: retired How many Children do You have: 2 Other Information That Helps Us Care for You: No Feels Safe at Home: Yes Safety Concerns: Feels Safe At This Time Diet Comment: Educated to increase protein, vitamin c, d and zinc Assistive Devices: Cane Review of Systems Review of Systems: All systems reviewed & are unremarkable except as noted in Subjective Physical Exam Constitutional: cooperative and comfortable Neck: normal visual inspection Respiratory: normal respiratory effort Musculoskeletal: Extremities: + foot abnormality (Absent right first and second toes ) Right Skin: + ulcer (Right foot full thickness ulcer with graft dressing intact by steristrips) and + erythema (Right leg) Neurologic: moves all extremities Motor/Sensory: + sensory deficit (Decreased epicritic sensation) Psychiatric: Orientation: alert and oriented x 3 Results & Data Vital Signs (Past 12 Hours) Vital Signs Temp Pulse Resp BP BP Pulse Ox O2 Del Method 10/10/22 19:45 Room Air 10/10/22 19:42 36.7 C 62 18 116/72 97 Room Air 10/10/22 16:30 36.3 C L 60 18 129/71 99 Room Air 08/28/23 11:40 36.5 C 64 18 101/67 99 Room Air
[2022-10-11 06:34] LABS: Hematocrit (blood only) 39.5 % (42.0-52.0); Hemoglobin 13.2 g/dl (14.0-18.0); Mean Corpuscular Hgb Conc 33.4 g/dL (32.0-36.0); Mean Corpuscular Volume 83.7 fL (80.0-100.0); Mean Platelet Volume 10.7 fL (9.4-12.4); Platelet Count 218 K/uL (130-400); RDW Coefficient of Variation 16.6 % (11.5-14.5); Red Blood Count 4.72 M/uL (4.70-6.10)
[2022-10-11 06:42] LABS: INR 2.6 (0.9-1.1); Prothrombin Time 26.9 Seconds (9.0-12.0)
[2022-10-11 06:56] LABS: BUN Creatinine Ratio 23.1 (10-20); Calcium 8.6 mg/dl (8.6-10.3); Creatinine Clr Calc Pharmacy 62.7 ml/min; Est GFR (African American) 61.8 ml/min; Est GFR (Non-African American) 53.3 ml/min; Magnesium 1.9 mg/dl (1.7-2.4); Potassium 3.8 mmol/L (3.5-5.1)
[2022-10-11] MEDS: INSULIN ASPART PER UNIT CHARGE SC SCH ×4 (09:11→20:36)
[2022-10-11] MEDS: MULTIVITAMIN CHEWABLE TAB PO SCH (09:12)
[2022-10-11] MEDS: SACCHAROMYCES BOULARDII 250 MG CAP PO SCH (09:12)
[2022-10-11] MEDS: ASPIRIN 81 MG ECTAB PO SCH (09:13)
[2022-10-11] MEDS: LOSARTAN POTASSIUM 50 MG TAB PO SCH (09:13)
[2022-10-11] MEDS: LANTUS PER UNIT CHARGE SQ SCH ×2 (09:13→20:36)
[2022-10-11] MEDS: MAGNESIUM OXIDE 400 MG TAB PO SCH (09:13)
[2022-10-11] MEDS: CEFEPIME 2,000 MG in SYRINGE 0 ML IV SCH ×2 (10:16→21:16)
--- NOTE | 2022-10-11 15:35 | Hospitalist Progress Note ---
Date of Service October 11, 2022 Assessment & Plan (1) Cellulitis of right lower extremity: (2) Acute dyspnea: (3) CHF (congestive heart failure): (4) Diabetes type 2 with atherosclerosis of arteries of extremities: (5) Hx MRSA infection: (6) Acute kidney injury superimposed on chronic kidney disease: (7) Atrial fibrillation: (8) Pacemaker: Plan: Patient is a 72 yr male with H/O Chronic atrial fibrillation anticoagulated on warfarin cardiac pacemaker in situ, CAD with history of coronary stent HTN, PAD, history of CVA, venous insufficiency T2DM with neuropathy, CKD stage IIIb, hyperparathyroidism, hyperlipidemia, sleep apnea on BiPAP, vitamin D deficiency, vitamin B12 deficiency, history of toe amputations R great toe/2and 3rd distal phalanx, history of gastric bypass, depression who presents secondary to shortness of breath x 2 weeks. Right lower extremity cellulitis Right diabetic foot wound-POA H/O MRSA Chronic venous stasis --Venous Doppler:No evidence of deep venous thrombus within the bilateral lower extremities. Mildly enlarged right inguinal lymph node. This node contains a fatty hilum and is probably benign. This may be reactive. A follow-up right groin ultrasound in 3 months is recommended to ensure stability/resolution. -- Blood cultures negative to date Continue Cefepime and Daptomycin Needs right groin ultrasound in 3 months to ensure resolution of lymphadenopathy Follows with wound clinic as outpatient Continue local wound care Appreciate podiatry input Nonweightbearing right lower extremity Needs follow-up with wound clinic upon discharge Clinically improving Plan to transition to p.o. antibiotics in 1 to 2 days Dyspnea on exertion Likely secondary to above Chronic diastolic heart failure likely contributing as well --CXR:No acute abnormalities and in particular no radiographic evidence of pneumonia. Stable cardiomegaly. --ECHO outpatient 10/04/2022 which showed normal LVEF of 55%, mildly increased concentric LVH, septal motion abnormal consistent with right ventricular pacemaker, mild aortic valve sclerosis present mild TR mild pulmonary hypertension On Lasix as needed at home Appreciate cardiology input Continue Lasix as needed for leg edema Saturating well on room air Monitor volume status Hypokalemia Replete electrolytes as needed Mild elevation of troponin Likely demand ischemia Monitor Chronic atrial fib H/O tachybradycardia syndrome S/P PPM Supratherapeutic INR Monitor INR 2.6 today Resumed Coumadin--adjust dose as needed JORGE on CKD III Baseline Cr:~ 1.5 Monitor renal function Avoid nephrotoxic agents as able Abnormal UA Urine Culture probable skin zehra DM II PAD/PVD/Neuropathy/Ulcer HbA1c 6.7 hold Jardiance--do not resume on discharge given significant infection Continue Lantus/NovoLog per protocol MINERVA Bipap at HS HLD On Statin hold statin while on Dapto Code Status FULL CODE Admission and Anticipated Discharge Date Admission Date: October 07, 2022 Subjective Patient is seen and examined at bedside Sitting in chair during my encounter Leg erythema, swelling much improved No new complaints Denies any chest pain, dizziness, nausea, vomiting, abdominal pain Review of Systems Review of Systems: All systems reviewed & are unremarkable except as noted in Subjective Physical Exam Physical Exam: Physical Exam: Vitals signs as noted above General Appearance:Moderately built and nourished, no apparent distress, Chronic ill appearing Head: normocephalic, Atraumatic Eyes: normal inspection, EOMI Neck: supple, Trachea midline Respiratory/Chest: Normal breath sounds, CTA, No accessory muscle use Cardiovascular: S1, S2, No murmur, +Pacemaker Abdomen/GI:Soft, Non tender, Bowel sounds present Extremities/Musculoskeletal:normal inspection, RLE edematous, erythema improving Neurologic/Psych:AAOX3, grossly no focal neurological deficits Skin: normal color, warm Results & Data Results & Data Vital Signs (Past 12 Hours) Vital Signs Temp Pulse Pulse Resp BP BP Pulse Ox 10/11/22 12:07 36.3 C L 62 18 96/66 L 99 10/11/22 09:00 68 10/11/22 09:00 10/11/22 08:11 36.7 C 60 19 125/74 96 O2 Del Method 10/11/22 12:07 Room Air 10/11/22 09:00 10/11/22 09:00 Room Air 10/11/22 08:11 Room Air Laboratory Results Short CBC 10/11/22 Range/Units 06:16 WBC 5.50 (4.8-10.8) K/ul Hgb 13.2 L (14.0-18.0) g/dl Hct 39.5 L (42.0-52.0) % Plt Count 218 (130-400) K/uL BMP 10/11/22 06:16 Sodium 138 Potassium 3.8 Chloride 110 H Carbon Dioxide 22 BUN 31 H Creatinine 1.34 Glucose 119 H Calcium 8.6
[2022-10-11] MEDS: WARFARIN SOD 2 MG TAB PO SCH (16:49)
[2022-10-11] MEDS: CHOLECALCIFEROL 1,000 UNITS 25 MCG TAB PO SCH (21:14)
[2022-10-11] MEDS: DAPTOmycin 350 MG in SYRINGE 0 ML IV SCH (21:14)
[2022-10-11] MEDS: CYANOCOBALAMIN (B-12) 500 MCG TABLET PO SCH (21:14)
[2022-10-11] MEDS: TAMSULOSIN HCL 0.4 MG CAP PO SCH (21:14)
[2022-10-12 06:47] LABS: Hematocrit (blood only) 35.5 % (42.0-52.0); Mean Corpuscular Hemoglobin 28.5 pg (25.0-34.0); Mean Corpuscular Hgb Conc 33.8 g/dL (32.0-36.0); Mean Corpuscular Volume 84.3 fL (80.0-100.0); Mean Platelet Volume 10.7 fL (9.4-12.4); Platelet Count 231 K/uL (130-400); RDW Coefficient of Variation 16.4 % (11.5-14.5); RDW Standard Deviation 50.8 fL (36.4-46.3); Red Blood Count 4.21 M/uL (4.70-6.10); White Blood Count 5.94 K/ul (4.8-10.8)
[2022-10-12 07:11] LABS: INR 2.2 (0.9-1.1); Prothrombin Time 22.6 Seconds (9.0-12.0)
[2022-10-12 07:13] LABS: Calcium 8.3 mg/dl (8.6-10.3); Creatinine Clr Calc Pharmacy 63.6 ml/min; Est GFR (African American) 62.9 ml/min; Est GFR (Non-African American) 54.3 ml/min; Potassium 3.9 mmol/L (3.5-5.1)
[2022-10-12] MEDS: LOSARTAN POTASSIUM 25 MG TAB PO SCH (08:48)
[2022-10-12] MEDS: MAGNESIUM OXIDE 400 MG TAB PO SCH (08:48)
[2022-10-12] MEDS: ASPIRIN 81 MG ECTAB PO SCH (08:48)
[2022-10-12] MEDS: SACCHAROMYCES BOULARDII 250 MG CAP PO SCH (08:49)
[2022-10-12] MEDS: MULTIVITAMIN CHEWABLE TAB PO SCH (08:49)
[2022-10-12] MEDS: INSULIN ASPART PER UNIT CHARGE SC SCH ×4 (08:55→21:51)
[2022-10-12] MEDS: CEFEPIME 2,000 MG in SYRINGE 0 ML IV SCH ×2 (10:16→21:56)
--- NOTE | 2022-10-12 15:48 | Hospitalist Progress Note ---
Date of Service October 12, 2022 Assessment & Plan (1) Cellulitis of right lower extremity: (2) Hx MRSA infection: (3) Acute dyspnea: (4) CHF (congestive heart failure): (5) Diabetes type 2 with atherosclerosis of arteries of extremities: (6) Acute kidney injury superimposed on chronic kidney disease: (7) Atrial fibrillation: (8) Pacemaker: Plan: Patient is a 72 yr male with H/O Chronic atrial fibrillation anticoagulated on warfarin cardiac pacemaker in situ, CAD with history of coronary stent HTN, PAD, history of CVA, venous insufficiency T2DM with neuropathy, CKD stage IIIb, hyperparathyroidism, hyperlipidemia, sleep apnea on BiPAP, vitamin D deficiency, vitamin B12 deficiency, history of toe amputations R great toe/2and 3rd distal phalanx, history of gastric bypass, depression who presents secondary to shortness of breath x 2 weeks. Patient is overall improving with plans to pursue SNF/rehab and transition to PO antibiotics. #Right lower extremity cellulitis #Right diabetic foot wound-POA #H/O MRSA #Chronic venous stasis --Venous Doppler:No evidence of deep venous thrombus within the bilateral lower extremities. Mildly enlarged right inguinal lymph node. This node contains a fatty hilum and is probably benign. This may be reactive. A follow-up right groin ultrasound in 3 months is recommended to ensure stability/resolution. -- Blood cultures negative to date Continue Cefepime and Daptomycin Follows with wound clinic as outpatient Plan for OP US in 3 months for right inguinal LAD Continue local wound care Appreciate podiatry input Nonweightbearing right lower extremity Needs follow-up with wound clinic upon discharge Clinically improving Plan to transition to p.o. antibiotics in am #NSVT 14 beats of NSVT on tele -Discuss with cardiology if metoprolol or other rate control necessary given complex cardiac history #Dyspnea on exertion, possibly secondary to deconditioning #Chronic diastolic heart failure --CXR:No acute abnormalities and in particular no radiographic evidence of pne umonia. Stable cardiomegaly. --ECHO outpatient 10/04/2022 which showed normal LVEF of 55%, mildly increased concentric LVH, septal motion abnormal consistent with right ventricular pacemaker, mild aortic valve sclerosis present mild TR mild pulmonary hypertension Cardiology on consult, no concern for decompensated heart failure -Lasix as needed -Continue to monitor pulse oximetry and volume status #Chronic atrial fibrillation on AC #Tachybrady syndrome S/P PPM #Supratherapeutic INR -Monitor INR 2.2 today -Continue Coumadin--adjust dose as needed #Hypokalemia *resolved Replete electrolytes as needed #Mild elevation of troponin Likely demand ischemia iso infection Monitor #JORGE on CKD III *improved Baseline Cr:~ 1.5 Monitor renal function Avoid nephrotoxic agents as able #DM II #PAD/PVD/Neuropathy/Ulcer HbA1c 6.7 Discontunue home Jardiance--do not resume on discharge given significant infection Continue Lantus/NovoLog per protocol #MINERVA Bipap at HS #HLD hold statin while on Dapto Code Status FULL CODE Admission and Anticipated Discharge Date Admission Date: October 07, 2022 Subjective Patient is seen and examined at bedside Sitting in bed chair during my encounter, post OT evaluation No new complaints Denies any chest pain, dizziness, nausea, vomiting, abdominal pain Review of Systems Review of Systems: All systems reviewed & are unremarkable except as noted in Subjective Physical Exam Constitutional: WD/WN, vitals as above Eyes: PERRL, conjunctivae normal, anicteric sclerae ENMT: external ear and nose normal, oropharynx normal Neck: trachea midline, no thyromegaly Respiratory: clear to auscultation, no crackles/wheezing appreciated, good air entry without resp distress Results & Data Results & Data Vital Signs (Past 12 Hours) Vital Signs Temp Pulse Pulse Resp BP BP Pulse Ox 10/12/22 09:00 10/12/22 11:14 36.6 C 61 19 98/63 L 97 10/12/22 08:00 64 10/12/22 07:14 36.6 C 60 19 121/72 96 O2 Del Method 10/12/22 09:00 Room Air 10/12/22 11:14 Room Air 10/12/22 08:00 10/12/22 07:14 Room Air Laboratory Results Laboratory Results WBC 5.94 K/ul (4.8-10.8) 10/12/22 05:45 RBC 4.21 M/uL (4.70-6.10) L 10/12/22 05:45 Hgb 12.0 g/dl (14.0-18.0) L 10/12/22 05:45 Hct 35.5 % (42.0-52.0) L 10/12/22 05:45 MCV 84.3 fL (80.0-100.0) 10/12/22 05:45 MCH 28.5 pg (25.0-34.0) 10/12/22 05:45 MCHC 33.8 g/dL (32.0-36.0) 10/12/22 05:45 RDW Std Deviation 50.8 fL (36.4-46.3) H 10/12/22 05:45 RDW Coeff of Jason 16.4 % (11.5-14.5) H 10/12/22 05:45 Plt Count 231 K/uL (130-400) 10/12/22 05:45 MPV 10.7 fL (9.4-12.4) 10/12/22 05:45 Immature Gran % (Auto) 0.6 % 10/08/22 04:37 Neut % (Auto) 85.9 % 10/08/22 04:37 Lymph % (Auto) 6.3 % 10/08/22 04:37 [place] % (Auto) 6.6 % 10/08/22 04:37 Eos % (Auto) 0.4 % 10/08/22 04:37 Baso % (Auto) 0.2 % 10/08/22 04:37 Neut # (Auto) 10.64 K/uL (1.40-6.50) H 10/08/22 04:37 Lymph # (Auto) 0.78 K/uL (1.20-3.40) L 10/08/22 04:37 [place] # (Auto) 0.82 K/uL (0.11-0.59) H 10/08/22 04:37 Eos # (Auto) 0.05 K/uL (0.00-0.50) 10/08/22 04:37 Baso # (Auto) 0.02 K/uL (0.00-0.20) 10/08/22 04:37 Immature Gran # (Auto) 0.08 K/uL (0.01-0.20) 10/08/22 04:37 PT 22.6 Seconds (9.0-12.0) H 10/12/22 05:45 INR 2.2 (0.9-1.1) H 10/12/22 05:45 Sodium 137 mmol/L (136-145) 10/12/22 05:45 Potassium 3.9 mmol/L (3.5-5.1) 10/12/22 05:45 Chloride 110 mmol/L (98-107) H 10/12/22 05:45 Carbon Dioxide 21 mmol/L (21-32) 10/12/22 05:45 Anion Gap 6 (3-11) 10/12/22 05:45 BUN 33 mg/dl (6-23) H 10/12/22 05:45 Creatinine 1.32 mg/dl (0.6-1.4) 10/12/22 05:45 Est Cr Clr Drug Dosing 63.6 ml/min 10/12/22 05:45 Est GFR ( Amer) 62.9 ml/min 10/12/22 05:45 Est GFR (Non-Af Amer) 54.3 ml/min 10/12/22 05:45 BUN/Creatinine Ratio 25.0 (10-20) H 10/12/22 05:45 Glucose 96 mg/dl (70-99(Fasting)) 10/12/22 05:45 POC Glucose 106 mg/dl (70-99) H 10/12/22 11:50 Estimat Average Glucose 146 mg/dl 10/08/22 04:37 Hemoglobin A1c 6.7 % (4.5-5.6) H 10/08/22 04:37 Calcium 8.3 mg/dl (8.6-10.3) L 10/12/22 05:45 Magnesium 1.9 mg/dl (1.7-2.4) 10/11/22 06:16 Total Bilirubin 1.1 mg/dl (0.2-1.0) H 10/08/22 04:37 Direct Bilirubin 0.4 mg/dl (0-0.2) H 10/07/22 19:02 AST 29 U/L (13-39) 10/08/22 04:37 ALT 24 U/L (7-52) 10/08/22 04:37 Alkaline Phosphatase 62 U/L (34-104) 10/08/22 04:37 Total Creatine Kinase 38 U/L (30-223) 10/07/22 23:17 Troponin I High Sens 34.7 pg/ml (0-20) H 10/08/22 04:37 B-Natriuretic Peptide 453 pg/ml (0-100) H 10/07/22 17:09 Total Protein 6.8 gm/dl (6.0-8.3) 10/08/22 04:37 Albumin 3.0 gm/dl (3.4-5.0) L 10/08/22 04:37 Globulin 3.8 gm/dl (2.5-4.0) 10/08/22 04:37 Albumin/Globulin Ratio 0.8 (0.9-2) L 10/08/22 04:37 Urine Color Dark Yellow 10/07/22 15:42 Urine Appearance Cloudy (Clear) A 10/07/22 15:42 Urine pH 5.5 (4.5-7.5) 10/07/22 15:42 Ur Specific [place] 1.034 (1.000-1.030) H 10/07/22 15:42 Urine Protein 3+ (Negative) H 10/07/22 15:42 Urine Glucose (UA) 3+ (Negative) H 10/07/22 15:42 Urine Ketones Trace (Negative) H 10/07/22 15:42 Urine Blood 2+ (Negative) H 10/07/22 15:42 Urine Nitrite Negative (Negative) 10/07/22 15:42 Urine Bilirubin 1+ (Negative) H 10/07/22 15:42 Urine Urobilinogen Negative (Negative) 10/07/22 15:42 Ur Leukocyte Esterase Negative (Negative) 10/07/22 15:42 Urine WBC (Auto) 5-10 /hpf (0-5) H 10/07/22 15:42 Urine RBC (Auto) 5-10 /hpf (0-4) H 10/07/22 15:42 U Hyaline Cast (Auto) 5-10 /lpf (0-5) H 10/07/22 15:42 U Epithel Cells (Auto) 10-20 /lpf (0-5) H 10/07/22 15:42 Urine Bacteria (Auto) Negative (Negative) 10/07/22 15:42 Urine Yeast Not Reportable 10/07/22 15:42 Stl C. diff Tox B Gene Negative Cdiff Gene (Neg) 10/11/22 Unknown Hepatitis C Ab (EIA) NON-REACTIVE (NON-REACTIVE) 10/08/22 04:37 Impressions Venous Doppler Study 10/07/22 19:18 BILATERAL LOWER EXTREMITY VENOUS DOPPLER CLINICAL HISTORY: edema r/o dvt COMPARISON STUDY: Bilateral lower extremity venous Doppler ultrasound October 19, 2017. TECHNIQUE: Sonography of the deep venous system of the bilateral lower extremities was performed. Compression and augmentation were evaluated. FINDINGS: The bilateral common femoral, superficial femoral and popliteal veins were compressible. Augmentation was normal. Flow was shown within the deep calf vessels. Right calf subcutaneous edema is noted. There is a mildly enlarged righ t inguinal lymph node which measures 1.6 x 1.1 cm. This contains a fatty hilum. IMPRESSION: 1. No evidence of deep venous thrombus within the bilateral lower extremities. 2. Mildly enlarged right inguinal lymph node. This node contains a fatty hilum and is probably benign. This may be reactive. A follow-up right groin ultrasound in 3 months is recommended to ensure stability/resolution. ACT 112: Negative or not required by law. Electronically signed by: Jay Carrasco M.D. 10/08/2022 8:50 AM Chest X-Ray 10/10/22 13:12 XR chest 1V portable CLINICAL HISTORY: Dyspnea. COMPARISON STUDY: Chest radiograph October 07, 2022. FINDINGS: Left subclavian pacer is in place. Moderate cardiomegaly is again noted. There is no evidence for pulmonary edema. No consolidation is identified. There is no pneumothorax or pleural effusion. IMPRESSION: No acute cardiopulmonary findings. ACT 112: Negative or not required by law. Electronically signed by: Jay Carrasco M.D. 10/10/2022 1:51 PM Diagnostic Findings Personally reviewed CXR from 10/10 without notable consolidation or infiltrates Medications Administered Home Medications Medication Instructions Recorded Confirmed Last Taken pediatric ojmjjjeo-moun-erg 1 tab PO PM ##0 04/11/13 10/07/22 12/31/20 23:00 (Flintstones Complete (iron) chewable tablet) atorvastatin 40 mg tablet 40 mg PO PM #0 tabs 01/08/17 10/07/22 12/31/20 22:00 cholecalciferol (vitamin D3) 25 2,000 unit PO PM 10/18/17 10/07/22 12/31/20 23:00 mcg (1,000 unit) capsule (Vitamin D3) cyanocobalamin (vitamin B-12) 1,000 mcg PO PM 05/06/19 10/07/22 12/31/20 23:00 1,000 mcg tablet furosemide 20 mg tablet 20 mg PO DAILY PRN swelling 05/06/19 10/07/22 12/31/20 08:00 tamsulosin 0.4 mg capsule 0.4 mg PO PM 05/06/19 10/07/22 12/31/20 23:00 magnesium oxide 400 mg PO DAILY 09/26/19 10/07/22 12/31/20 23:00 losartan 50 mg tablet 50 mg PO DAILY 08/11/20 10/07/22 12/31/20 23:00 triamcinolone acetonide 0.1 % 1 applic topical BID PRN Rash 08/11/20 10/07/22 08/10/20 topical cream acetaminophen 500 mg tablet 1,000 mg PO Q6H PRN Pain 12/17/20 10/07/22 12/27/20 aspirin 81 mg tablet 81 mg PO DAILY 12/21/20 10/07/22 12/30/20 23:00 empagliflozin 10 mg tablet 10 mg PO DAILY 10/07/22 10/07/22 Unknown (Jardiance) warfarin 3 mg tablet 3 mg PO SUTUWETHFRSA@1600 10/07/22 10/07/22 Unknown warfarin 3 mg tablet 6 mg PO MO@1600 10/07/22 10/07/22 Unknown Active Medications Generic Name Dose Route Start Last Admin Trade Name Oneyda PRN Reason Stop Dose Admin Acetaminophen 650 mg 10/07/22 21:20 10/10/22 02:23 Acetaminophen 325 Mg Tab PO 11/06/22 21:19 650 mg Q4H PRN Administration Pain or Fever Aspirin 81 mg 10/08/22 09:00 10/12/22 08:48 Aspirin 81 Mg Ectab PO 11/07/22 08:59 81 mg DAILY COOKIE Administration Cyanocobalamin 1,000 mcg 10/07/22 21:30 10/11/22 21:14 Cyanocobalamin (B-12) 500 Mcg Tablet PO 11/06/22 21:29 1,000 mcg PM COOKIE Administration Daptomycin 350 mg/ Syringe 7 mls @ 3 mls/min 10/07/22 21:30 10/11/22 21:14 IV 10/14/22 21:29 3 mls/min Q24H COOKIE Administration Protocol Cefepime HCl 2,000 mg/ Syringe 20 mls @ 5 mls/min 10/08/22 10:00 10/12/22 10:16 IV 10/15/22 08:59 5 mls/min Q12H COOKIE Administration Protocol Insulin Aspart 0 units 10/07/22 21:20 10/12/22 13:15 Insulin Aspart Per Unit Charge SC 11/06/22 21:19 Not Given ACHS COOKIE Losartan Potassium 25 mg 10/12/22 09:00 10/12/22 08:48 Losartan Potassium 25 Mg Tab PO 11/11/22 08:59 25 mg DAILY COOKIE Administration Magnesium Oxide 400 mg 10/08/22 09:00 10/12/22 08:48 Magnesium Oxide 400 Mg Tab PO 11/07/22 08:59 400 mg DAILY COOKIE Administration Miscellaneous 15 - 30 gm 10/07/22 21:20 10/11/22 20:13 Carbohydrates For Hypoglycemia PO 11/06/22 21:19 15 gm UD PRN Administration Hypoglycemia Protocol Multivitamins/Folic Acid/Vitamin C 1 tab 10/08/22 13:15 10/12/22 08:49 Multivitamin Chewable Tab PO 11/07/22 13:14 1 tab QAM COOKIE Administration Saccharomyces Boulardii 250 mg 10/08/22 09:00 10/12/22 08:49 Saccharomyces Boulardii 250 Mg Cap PO 11/07/22 08:59 250 mg DAILY COOKIE Administration Tamsulosin HCl 0.4 mg 10/07/22 21:20 10/11/22 21:14 Tamsulosin Hcl 0.4 Mg Cap PO 11/06/22 21:19 0.4 mg PM COOKIE Administration Vitamin D 2,000 units 10/07/22 21:30 10/11/22 21:14 Cholecalciferol 1,000 Units 25 Mcg Tab PO 11/06/22 21:29 2,000 units PM COOKIE Administration Warfarin Sodium 3 mg 10/08/22 16:00 10/08/22 16:53 Warfarin Sod 3 Mg Tab PO 11/07/22 15:59 3 mg SUTUWETHFRSA@1600 C[facility] Administration Warfarin Sodium 2 mg 10/10/22 16:00 10/11/22 16:49 Warfarin Sod 2 Mg Tab PO 11/09/22 15:59 2 mg DAILY@1600 COOKIE Administration
[2022-10-12] MEDS: ACETAMINOPHEN 325 MG TAB PO PRN ×2 (16:26→23:35)
[2022-10-12] MEDS: WARFARIN SOD 2 MG TAB PO SCH (16:32)
[2022-10-12] MEDS: CYANOCOBALAMIN (B-12) 500 MCG TABLET PO SCH (21:51)
[2022-10-12] MEDS: TAMSULOSIN HCL 0.4 MG CAP PO SCH (21:51)
[2022-10-12] MEDS: CHOLECALCIFEROL 1,000 UNITS 25 MCG TAB PO SCH (21:52)
[2022-10-12] MEDS: DAPTOmycin 350 MG in SYRINGE 0 ML IV SCH (21:56)
[2022-10-13] MEDS ORDERED: MoRPHine SULFATE 4 MG/ML 1 ML CARP\\VIAL IV STA (00:32)
[2022-10-13] MEDS ORDERED: CYCLOBENZAPRINE HCL 10 MG TAB PO STA (03:06)
[2022-10-13 06:38] LABS: Basophils # (auto) 0.03 K/uL (0.00-0.20); Basophils % (auto) 0.7 %; Eosinophils # (auto) 0.16 K/uL (0.00-0.50); Eosinophils % (auto) 3.6 %; Hematocrit (blood only) 36.9 % (42.0-52.0); Hemoglobin 12.1 g/dl (14.0-18.0); Immature Granulocytes # (auto) 0.05 K/uL (0.01-0.20); Immature Granulocytes % (auto) 1.1 %; Lymphocytes # (auto) 0.91 K/uL (1.20-3.40); Lymphocytes % (auto) 20.4 %; Mean Corpuscular Hemoglobin 27.8 pg (25.0-34.0); Mean Corpuscular Hgb Conc 32.8 g/dL (32.0-36.0); Mean Corpuscular Volume 84.6 fL (80.0-100.0); Mean Platelet Volume 10.7 fL (9.4-12.4); Monocytes # (auto) 0.37 K/uL (0.11-0.59); Monocytes % (auto) 8.3 %; Neutrophils # (auto) 2.95 K/uL (1.40-6.50); Neutrophils % (auto) 65.9 %; Platelet Count 237 K/uL (130-400); RDW Coefficient of Variation 16.4 % (11.5-14.5); RDW Standard Deviation 50.8 fL (36.4-46.3); Red Blood Count 4.36 M/uL (4.70-6.10); White Blood Count 4.47 K/ul (4.8-10.8)
[2022-10-13 07:04] LABS: Echinocytes 2+
[2022-10-13 07:07] LABS: BUN Creatinine Ratio 23.7 (10-20); Calcium 8.4 mg/dl (8.6-10.3); Creatinine Clr Calc Pharmacy 64.1 ml/min; Est GFR (African American) 63.5 ml/min; Est GFR (Non-African American) 54.8 ml/min; Magnesium 1.9 mg/dl (1.7-2.4); Potassium 4.1 mmol/L (3.5-5.1)
[2022-10-13 07:29] LABS: INR 1.9 (0.9-1.1); Prothrombin Time 19.9 Seconds (9.0-12.0)
[2022-10-13] MEDS: ASPIRIN 81 MG ECTAB PO SCH (08:44)
[2022-10-13] MEDS: INSULIN ASPART PER UNIT CHARGE SC SCH ×4 (08:45→22:11)
[2022-10-13] MEDS: MAGNESIUM OXIDE 400 MG TAB PO SCH (08:45)
[2022-10-13] MEDS: MULTIVITAMIN CHEWABLE TAB PO SCH (08:45)
[2022-10-13] MEDS: SACCHAROMYCES BOULARDII 250 MG CAP PO SCH (08:45)
[2022-10-13] MEDS: LOSARTAN POTASSIUM 25 MG TAB PO SCH (08:45)
[2022-10-13] MEDS: DOXYCYCLINE HYCLATE 100 MG CAP PO SCH ×2 (08:54→22:11)
[2022-10-13] MEDS ORDERED: CYCLOBENZAPRINE HCL 10 MG TAB PO PRN (09:56)
[2022-10-13] MEDS ORDERED: METOPROLOL TARTRATE 25 MG TAB PO SCH (10:00)
[2022-10-13] MEDS: METOPROLOL SUCC 25MG EXT REL TAB PO SCH (11:43)
--- NOTE | 2022-10-13 12:22 | Hospitalist Progress Note ---
Date of Service October 13, 2022 Assessment & Plan (1) Cellulitis of right lower extremity: (2) Hx MRSA infection: (3) Acute dyspnea: (4) CHF (congestive heart failure): (5) Diabetes type 2 with atherosclerosis of arteries of extremities: (6) Acute kidney injury superimposed on chronic kidney disease: (7) Atrial fibrillation: (8) Pacemaker: Plan: Patient is a 72 yr male with H/O Chronic atrial fibrillation anticoagulated on warfarin cardiac pacemaker in situ, CAD with history of coronary stent HTN, PAD, history of CVA, venous insufficiency T2DM with neuropathy, CKD stage IIIb, hyperparathyroidism, hyperlipidemia, sleep apnea on BiPAP, vitamin D deficiency, vitamin B12 deficiency, history of toe amputations R great toe/2and 3rd distal phalanx, history of gastric bypass, depression who presents secondary to shortness of breath x 2 weeks. Dyspnea without clear etiology at this point, no oxygen requirement, no signs of decompensation or overload. Patient is overall improving with plans to pursue SNF/rehab and transition to PO antibiotics. #Right lower extremity cellulitis #Right diabetic foot wound-POA #H/O MRSA #Chronic venous stasis --Venous Doppler:No evidence of deep venous thrombus within the bilateral lower extremities. Mildly enlarged right inguinal lymph node. This node contains a fatty hilum and is probably benign. This may be reactive. A follow-up right groin ultrasound in 3 months is recommended to ensure stability/resolution. -- Blood cultures negative to date Plan for OP US in 3 months for right inguinal LAD Continue local wound care Nonweightbearing right lower extremity Needs follow-up with wound clinic upon discharge Clinically improving-Transitioned to doxycycline 100mg bid with EOT 10/15 Flexeril prn for spasm Plan for rehab dispo #NSVT Multiple runs of NSVT on telemetry -Started Metorpolol succinate 25mg daily after discussion with Cardiology #Dyspnea on exertion, possibly secondary to deconditioning #Chronic diastolic heart failure --CXR:No acute abnormalities and in particular no radiographic evidence of pneumonia. Stable cardiomegaly. --ECHO outpatient 10/04/2022 which showed normal LVEF of 55%, mildly increased concentric LVH, septal motion abnormal consistent with right ventricular pacemaker, mild aortic valve sclerosis present mild TR mild pulmonary hypertension Cardiology on consult, no concern for decompensated heart failure -Lasix as needed -Continue to monitor pulse oximetry and volume status #Chronic atrial fibrillation on AC #Tachybrady syndrome S/P PPM #Supratherapeutic INR -Monitor INR 1.9 today -Continue Coumadin--adjust dose as needed #Hypokalemia *resolved Replete electrolytes as needed #Mild elevation of troponin Likely demand ischemia iso infection Monitor #JORGE on CKD III *improved Baseline Cr:~ 1.5 Monitor renal function Avoid nephrotoxic agents as able #DM II #PAD/PVD/Neuropathy/Ulcer HbA1c 6.7 Discontunue home Jardiance--do not resume on discharge given significant infection Continue Lantus/NovoLog per protocol #MINERVA Bipap at HS #HLD Resume statin tomorrow Code Status FULL CODE Admission and Anticipated Discharge Date Admission Date: October 07, 2022 Subjective Patient is seen and examined at bedside Endorses occasional cramping in right lower extremity, but denies any other acute concerns Denies any chest pain, dizziness, nausea, vomiting, abdominal pain Review of Systems Review of Systems: All systems reviewed & are unremarkable except as noted in Subjective Physical Exam Constitutional: WD/WN, vitals as above Eyes: PERRL, conjunctivae normal, anicteric sclerae ENMT: external ear and nose normal, oropharynx normal Neck: trachea midline, no thyromegaly no JVD Respiratory: normal respiratory effort, lungs clear to auscultation Cardiovascular: telemetry reviewed with runs of NSVT Gastrointestinal (Abdomen): normal bowel sounds, soft, nontender, no hepatosplenomegaly Musculoskeletal: moving all extremities equally Skin: right lower extremity with clean bandage in place, no strike trough or dischagre appreciated Results & Data Results & Data Vital Signs (Past 12 Hours) Vital Signs Temp Pulse Pulse Resp BP Pulse Ox O2 Del Method 10/13/22 09:00 Room Air 10/13/22 08:00 62 10/13/22 07:55 36.5 C 61 18 119/69 98 Room Air 10/13/22 02:24 36.6 C 61 18 115/69 98 Room Air 10/13/22 00:43 62 Laboratory Results Short CBC 10/13/22 Range/Units 05:54 WBC 4.47 L (4.8-10.8) K/ul Hgb 12.1 L (14.0-18.0) g/dl Hct 36.9 L (42.0-52.0) % Plt Count 237 (130-400) K/uL BMP 10/13/22 05:54 Sodium 135 L Potassium 4.1 Chloride 109 H Carbon Dioxide 22 BUN 31 H Creatinine 1.31 Glucose 115 H Calcium 8.4 L Diagnostic Findings no new imaging to review Medications Administered Home Medications Medication Instructions Recorded Confirmed Last Taken pediatric qdghtbof-oauj-vur 1 tab PO PM ##0 04/11/13 10/07/22 12/31/20 23:00 (Flintstones Complete (iron) chewable tablet) atorvastatin 40 mg tablet 40 mg PO PM #0 tabs 01/08/17 10/07/22 12/31/20 22:00 cholecalciferol (vitamin D3) 25 2,000 unit PO PM 10/18/17 10/07/22 12/31/20 23:00 mcg (1,000 unit) capsule (Vitamin D3) cyanocobalamin (vitamin B-12) 1,000 mcg PO PM 05/06/19 10/07/22 12/31/20 23:00 1,000 mcg tablet furosemide 20 mg tablet 20 mg PO DAILY PRN swelling 05/06/19 10/07/22 12/31/20 08:00 tamsulosin 0.4 mg capsule 0.4 mg PO PM 05/06/19 10/07/22 12/31/20 23:00 magnesium oxide 400 mg PO DAILY 09/26/19 10/07/22 12/31/20 23:00 losartan 50 mg tablet 50 mg PO DAILY 08/11/20 10/07/22 12/31/20 23:00 triamcinolone acetonide 0.1 % 1 applic topical BID PRN Rash 08/11/20 10/07/22 08/10/20 topical cream acetaminophen 500 mg tablet 1,000 mg PO Q6H PRN Pain 12/17/20 10/07/22 12/27/20 aspirin 81 mg tablet 81 mg PO DAILY 12/21/20 10/07/22 12/30/20 23:00 empagliflozin 10 mg tablet 10 mg PO DAILY 10/07/22 10/07/22 Unknown (Jardiance) warfarin 3 mg tablet 3 mg PO SUTUWETHFRSA@159910/07/22 10/07/22 Unknown warfarin 3 mg tablet 6 mg PO MO@159910/07/22 10/07/22 Unknown Active Medications Generic Name Dose Route Start Last Admin Trade Name Freq PRN Reason Stop Dose Admin Acetaminophen 650 mg 10/07/22 21:20 10/12/22 23:35 Acetaminophen 325 Mg Tab PO 11/06/22 21:19 650 mg Q4H PRN Administration Pain or Fever Aspirin 81 mg 10/08/22 09:00 10/13/22 08:44 Aspirin 81 Mg Ectab PO 11/07/22 08:59 81 mg DAILY COOKIE Administration Cyanocobalamin 1,000 mcg 10/07/22 21:30 10/12/22 21:51 Cyanocobalamin (B-12) 500 Mcg Tablet PO 11/06/22 21:29 1,000 mcg PM COOKIE Administration Doxycycline Hyclate 100 mg 10/13/22 09:00 10/13/22 08:54 Doxycycline Hyclate 100 Mg Cap PO 10/15/22 21:00 100 mg BID COOKIE Administration Daptomycin 350 mg/ Syringe 7 mls @ 3 mls/min 10/07/22 21:30 10/12/22 21:56 IV 10/14/22 21:29 3 mls/min Q24H COOKIE Administration Protocol Insulin Aspart 0 units 10/07/22 21:20 10/13/22 12:59 Insulin Aspart Per Unit Charge SC 11/06/22 21:19 2 units ACHS COOKIE Administration Losartan Potassium 25 mg 10/12/22 09:00 10/13/22 08:45 Losartan Potassium 25 Mg Tab PO 11/11/22 08:59 25 mg DAILY COOKIE Administration Magnesium Oxide 400 mg 10/08/22 09:00 10/13/22 08:45 Magnesium Oxide 400 Mg Tab PO 11/07/22 08:59 400 mg DAILY COOKIE Administration Metoprolol Succinate 25 mg 10/13/22 10:30 10/13/22 11:43 Metoprolol Succ 25mg Ext Rel Tab PO 11/12/22 10:29 25 mg QAM COOKIE Administration Miscellaneous 15 - 30 gm 10/07/22 21:20 10/11/22 20:13 Carbohydrates For Hypoglycemia PO 11/06/22 21:19 15 gm UD PRN Administration Hypoglycemia Protocol Multivitamins/Folic Acid/Vitamin C 1 tab 10/08/22 13:15 10/13/22 08:45 Multivitamin Chewable Tab PO 11/07/22 13:14 1 tab QAM COOKIE Administration Saccharomyces Boulardii 250 mg 10/08/22 09:00 10/13/22 08:45 Saccharomyces Boulardii 250 Mg Cap PO 11/07/22 08:59 250 mg DAILY COOKIE Administration Tamsulosin HCl 0.4 mg 10/07/22 21:20 10/12/22 21:51 Tamsulosin Hcl 0.4 Mg Cap PO 11/06/22 21:19 0.4 mg PM COOKIE Administration Vitamin D 2,000 units 10/07/22 21:30 10/12/22 21:52 Cholecalciferol 1,000 Units 25 Mcg Tab PO 11/06/22 21:29 2,000 units PM COOKIE Administration Warfarin Sodium 3 mg 10/08/22 16:00 10/08/22 16:53 Warfarin Sod 3 Mg Tab PO 11/07/22 15:59 3 mg SUTUWETHFRSA@1600 [facility] Administration Warfarin Sodium 2 mg 10/10/22 16:00 10/13/22 17:01 Warfarin Sod 2 Mg Tab PO 11/09/22 15:59 2 mg DAILY@1600 [facility] Administration
[2022-10-13] MEDS: WARFARIN SOD 2 MG TAB PO SCH (17:01)
[2022-10-13] MEDS ORDERED: WARFARIN SOD 1 MG TAB PO STA (17:22)
--- NOTE | 2022-10-13 19:19 | Orthopedic Progress Note ---
Date of Service October 12, 2022 Assessment & Plan (1) Diabetic ulcer of right foot: Plan: Patient seen, evaluated, and treated. Skin graft substitute intact. Outer dressing changed with out incident. Patient is non weight bearing to right lower extremity. Continued off loading is an important part of this Patient's wound management. Will continue to follow Patient while in house. Thank you for allowing me to participate in the care of this Patient. (2) Cellulitis of right lower extremity: Admission and Anticipated Discharge Date Admission Date: October 07, 2022 Subjective Patient seen at bedside in no distress resting comfortably. He has no complaints. Review of Systems Review of Systems: All systems reviewed & are unremarkable except as noted in Subjective Physical Exam Constitutional: cooperative and comfortable Neck: normal visual inspection Respiratory: normal respiratory effort Musculoskeletal: Extremities: + foot abnormality (Absent right first and second toes ) Skin: + ulcer (Right foot full thickness ulcer with graft dressing intact by steristrips) and + erythema (Right leg) Neurologic: moves all extremities Motor/Sensory: + sensory deficit (Decreased epicritic sensation) Psychiatric: Orientation: alert and oriented x 3 Results & Data Vital Signs (Past 12 Hours) Vital Signs Temp Pulse Pulse Resp BP BP Pulse Ox 10/12/22 16:00 60 10/12/22 16:40 36.4 C L 62 19 129/80 97 10/12/22 09:00 10/12/22 11:14 36.6 C 61 19 98/63 L 97 10/12/22 08:00 64 10/12/22 07:14 36.6 C 60 19 121/72 96 O2 Del Method 10/12/22 16:00 10/12/22 16:40 Room Air 10/12/22 09:00 Room Air 10/12/22 11:14 Room Air 10/12/22 08:00 10/12/22 07:14 Room Air
[2022-10-13] MEDS: DAPTOmycin 350 MG in SYRINGE 0 ML IV SCH (22:11)
[2022-10-13] MEDS: CHOLECALCIFEROL 1,000 UNITS 25 MCG TAB PO SCH (22:12)
[2022-10-13] MEDS: CYANOCOBALAMIN (B-12) 500 MCG TABLET PO SCH (22:12)
[2022-10-13] MEDS: TAMSULOSIN HCL 0.4 MG CAP PO SCH (22:13)
[2022-10-14] MEDS: INSULIN ASPART PER UNIT CHARGE SC SCH ×4 (08:47→20:28)
[2022-10-14 08:48] LABS: Hematocrit (blood only) 39.9 % (42.0-52.0); Hemoglobin 12.8 g/dl (14.0-18.0); Mean Corpuscular Hemoglobin 27.8 pg (25.0-34.0); Mean Corpuscular Hgb Conc 32.1 g/dL (32.0-36.0); Mean Corpuscular Volume 86.7 fL (80.0-100.0); Mean Platelet Volume 10.3 fL (9.4-12.4); Platelet Count 276 K/uL (130-400); RDW Coefficient of Variation 16.8 % (11.5-14.5); RDW Standard Deviation 52.3 fL (36.4-46.3); White Blood Count 4.02 K/ul (4.8-10.8)
[2022-10-14] MEDS: MAGNESIUM OXIDE 400 MG TAB PO SCH (08:48)
[2022-10-14] MEDS: MULTIVITAMIN CHEWABLE TAB PO SCH (08:48)
[2022-10-14] MEDS: METOPROLOL SUCC 25MG EXT REL TAB PO SCH (08:48)
[2022-10-14] MEDS: DOXYCYCLINE HYCLATE 100 MG CAP PO SCH ×2 (08:48→20:20)
[2022-10-14] MEDS: SACCHAROMYCES BOULARDII 250 MG CAP PO SCH (08:49)
[2022-10-14] MEDS: ASPIRIN 81 MG ECTAB PO SCH (08:49)
[2022-10-14] MEDS: LOSARTAN POTASSIUM 25 MG TAB PO SCH (08:49)
[2022-10-14 08:59] LABS: BUN Creatinine Ratio 23.8 (10-20); Calcium 8.6 mg/dl (8.6-10.3); Est GFR (African American) 64.1 ml/min; Est GFR (Non-African American) 55.3 ml/min; Potassium 4.6 mmol/L (3.5-5.1)
[2022-10-14 09:50] LABS: INR 1.7 (0.9-1.1); Prothrombin Time 17.7 Seconds (9.0-12.0)
[2022-10-14] MEDS: WARFARIN SOD 2 MG TAB PO SCH (16:33)
--- NOTE | 2022-10-14 19:16 | Hospitalist Progress Note ---
Date of Service October 14, 2022 Assessment & Plan (1) Cellulitis of right lower extremity: (2) Hx MRSA infection: (3) Acute dyspnea: (4) CHF (congestive heart failure): (5) Diabetes type 2 with atherosclerosis of arteries of extremities: (6) Acute kidney injury superimposed on chronic kidney disease: (7) Atrial fibrillation: (8) Pacemaker: Plan: Patient is a 72 yr male with H/O Chronic atrial fibrillation anticoagulated on warfarin cardiac pacemaker in situ, CAD with history of coronary stent HTN, PAD, history of CVA, venous insufficiency T2DM with neuropathy, CKD stage IIIb, hyperparathyroidism, hyperlipidemia, sleep apnea on BiPAP, vitamin D deficiency, vitamin B12 deficiency, history of toe amputations R great toe/2and 3rd distal phalanx, history of gastric bypass, depression who presents secondary to shortness of breath x 2 weeks. Dyspnea without clear etiology at this point, no oxygen requirement, no signs of decompensation or overload. Patient now declines rehab and will likely discharge home with home health services. #Right lower extremity cellulitis #Right diabetic foot wound-POA #H/O MRSA #Chronic venous stasis --Venous Doppler:No evidence of deep venous thrombus within the bilateral lower extremities. Mildly enlarged right inguinal lymph node. This node contains a fatty hilum and is probably benign. This may be reactive. A follow-up right groin ultrasound in 3 months is recommended to ensure stability/resolution. -- Blood cultures negative to date Plan for OP US in 3 months for right inguinal LAD Continue local wound care Nonweightbearing right lower extremity Needs follow-up with wound clinic upon discharge Continue doxycycline 100mg bid with EOT 10/15 Flexeril prn for spasm Plan for rehab dispo #NSVT No further runs of NSVT -Cardiology follow up as OP -Continue Metoprolol succinate 25mg daily after discussion with Cardiology #Dyspnea on exertion, possibly secondary to deconditioning #Chronic diastolic heart failure --CXR:No acute abnormalities and in particular no radiographic evidence of pneumonia. Stable cardiomegaly. --ECHO outpatient 10/04/2022 which showed normal LVEF of 55%, mildly increased concentric LVH, septal motion abnormal consistent with right ventricular pacemaker, mild aortic valve sclerosis present mild TR mild pulmonary hypertension Cardiology on consult, no concern for decompensated heart failure -Lasix as needed -Continue to monitor pulse oximetry and volume status #Chronic atrial fibrillation on AC #Tachybrady syndrome S/P PPM #Supratherapeutic INR -Monitor INR 1.7 today -Increased regimen 4mg warfarin nightly #Hypokalemia *resolved Replete electrolytes as needed #Mild elevation of troponin Likely demand ischemia iso infection Monitor #JORGE on CKD III *improved Baseline Cr:~ 1.5 Monitor renal function Avoid nephrotoxic agents as able #DM II #PAD/PVD/Neuropathy/Ulcer HbA1c 6.7 Discontinue home Jardiance--do not resume on discharge given significant infection Continue Lantus/NovoLog per protocol #MINERVA Bipap at HS #HLD Resume statin tomorrow Code Status FULL CODE Admission and Anticipated Discharge Date Admission Date: October 07, 2022 Subjective Patient seen resting in bedide chair He states that he is well overall and no longer wishes to go to rehab. It was discussed how important rehab will be in his recovery, but he reports prior experience and does not wish to go Patient denies any chest pain, palpitations, nausea, vomiting, uncontrolled pain or any other acute concerns Review of Systems Review of Systems: All systems reviewed & are unremarkable except as noted in Subjective Physical Exam Constitutional: WD/WN, vitals as above Eyes: PERRL, conjunctivae normal, anicteric sclerae ENMT: external ear and nose normal, oropharynx normal Neck: trachea midline, no thyromegaly Respiratory: normal respiratory effort, lungs clear to auscultation Gastrointestinal (Abdomen): normal bowel sounds, soft, nontender, no hepatosplenomegaly Musculoskeletal: right lower extremity with foot wrapped, no strike through; chronic venous stasis changes Results & Data Results & Data Vital Signs (Past 12 Hours) Vital Signs Temp Pulse Pulse Resp BP Pulse Ox O2 Del Method 10/14/22 19:00 60 10/14/22 15:22 36.4 C L 61 20 125/78 97 Room Air 10/14/22 10:02 36.2 C L 61 16 111/71 97 Room Air 10/14/22 11:49 Room Air 10/14/22 10:17 61 10/14/22 07:49 36.3 C L 60 16 146/84 H 98 Room Air Laboratory Results Short CBC 10/14/22 Range/Units 08:09 WBC 4.02 L (4.8-10.8) K/ul Hgb 12.8 L (14.0-18.0) g/dl Hct 39.9 L (42.0-52.0) % Plt Count 276 (130-400) K/uL BMP 10/14/22 08:08 Sodium 135 L Potassium 4.6 Chloride 108 H Carbon Dioxide 24 BUN 31 H Creatinine 1.30 Glucose 95 Calcium 8.6 Diagnostic Findings No new imaging to review Medications Administered Acetaminophen (Acetaminophen 325 Mg Tab) 650 mg PO Q4H PRN PRN Reason: Pain or Fever Stop: 11/06/22 21:19 Last Admin: 10/12/22 23:35 Dose: 650 mg Documented By: Admin: 10/12/22 16:26 Dose: 650 mg Documented By: Admin: 10/10/22 02:23 Dose: 650 mg Documented By: Admin: 10/08/22 22:17 Dose: 650 mg Documented By: SU(2) Aspirin (Aspirin 81 Mg Ectab) 81 mg PO DAILY [facility] Stop: 11/07/22 08:59 Last Admin: 10/14/22 08:49 Dose: 81 mg Documented By: Admin: 10/13/22 08:44 Dose: 81 mg Documented By: Admin: 10/12/22 08:48 Dose: 81 mg Documented By: Admin: 10/11/22 09:13 Dose: 81 mg Documented By: Admin: 10/10/22 08:17 Dose: 81 mg Documented By: Admin: 10/09/22 08:34 Dose: 81 mg Documented By: Admin: 10/08/22 09:04 Dose: 81 mg Documented By: GISELLE Cyanocobalamin (Cyanocobalamin (B-12) 500 Mcg Tablet) 1,000 mcg PO PM C[facility]IE Stop: 11/06/22 21:29 Last Admin: 10/13/22 22:12 Dose: 1,000 mcg Documented By: CUSTOMER EXPERIENCE ANALYST Admin: 10/12/22 21:51 Dose: 1,000 mcg Documented By: Admin: 10/11/22 21:14 Dose: 1,000 mcg Documented By: Admin: 10/10/22 20:25 Dose: 1,000 mcg Documented By: AMTarsha Admin: 10/09/22 20:32 Dose: 1,000 mcg Documented By: AMTarsha Admin: 10/08/22 20:57 Dose: 1,000 mcg Documented By: SU(2) Admin: 10/07/22 22:01 Dose: 1,000 mcg Documented By: SU(2) Cyclobenzaprine HCl (Cyclobenzaprine Hcl 10 Mg Tab) 10 mg PO Q8H PRN PRN Reason: spasm Stop: 11/12/22 09:55 Last Admin: 10/13/22 22:16 Dose: 10 mg Documented By: CUSTOMER EXPERIENCE ANALYST Doxycycline Hyclate (Doxycycline Hyclate 100 Mg Cap) 100 mg PO BID [facility] Stop: 10/15/22 21:00 Last Admin: 10/14/22 08:48 Dose: 100 mg Documented By: Admin: 10/13/22 22:11 Dose: 100 mg Documented By: CUSTOMER EXPERIENCE ANALYST Admin: 10/13/22 08:54 Dose: 100 mg Documented By: SANDRA Daptomycin 350 mg/ Syringe 7 mls @ 3 mls/min IV Q24H [facility]; Protocol Stop: 10/14/22 21:29 Last Admin: 10/13/22 22:11 Dose: 3 mls/min Documented By: Admin: 10/12/22 21:56 Dose: 3 mls/min Documented By: Admin: 10/11/22 21:14 Dose: 3 mls/min Documented By: Admin: 10/10/22 20:27 Dose: 3 mls/min Documented By: Admin: 10/09/22 20:38 Dose: 3 mls/min Documented By: Admin: 10/08/22 21:03 Dose: 3 mls/min Documented By: SU(2) Admin: 10/07/22 22:13 Dose: 3 mls/min Documented By: SU(2) Insulin Aspart (Insulin Aspart Per Unit Charge) 0 units SC ACHS [facility] Stop: 11/06/22 21:19 Last Admin: 10/14/22 17:50 Dose: 2 units Documented By: GEOFFREY Co-signed By: MARIO Admin: 10/14/22 12:49 Dose: 2 units Documented By: GEOFFREY Co-signed By: MARIO Admin: 10/14/22 08:47 Dose: 3 units Documented By: GEOFFREY Co-signed By: SANDRA Admin: 10/13/22 22:11 Dose: 1 units Documented By: CUSTOMER EXPERIENCE ANALYST Co-signed By: KAYLYNN Admin: 10/13/22 17:26 Dose: Not Given Documented By: Admin: 10/13/22 12:59 Dose: 2 units Documented By: SANDRA Co-signed By: MARIO Admin: 10/13/22 08:45 Dose: 3 units Documented By: SANDRA Co-signed By: MARIO Admin: 10/12/22 21:51 Dose: Not Given Documented By: Admin: 10/12/22 17:43 Dose: Not Given Documented By: Admin: 10/12/22 13:15 Dose: Not Given Documented By: Admin: 10/12/22 08:55 Dose: 2 units Documented By: SANDRA Co-signed By: DORIS Admin: 10/11/22 20:36 Dose: Not Given Documented By: Admin: 10/11/22 17:56 Dose: 3 units Documented By: SANDRA Co-signed By: MADHAVI Admin: 10/11/22 13:11 Dose: 2 units Documented By: SANDRA Co-signed By: MADHAVI Admin: 10/11/22 09:11 Dose: 2 units Documented By: SANDRA Co-signed By: MADHAVI Admin: 10/10/22 20:26 Dose: Not Given Documented By: Admin: 10/10/22 17:39 Dose: 3 units Documented By: KIARA Co-signed By: MADDY Admin: 10/10/22 13:14 Dose: 2 units Documented By: KIARA Co-signed By: MADDY Admin: 10/10/22 08:22 Dose: 3 units Documented By: KIARA Co-signed By: MADDY Admin: 10/09/22 20:33 Dose: 1 units Documented By: SU Co-signed By: JEFF Admin: 10/09/22 17:17 Dose: Not Given Documented By: Admin: 10/09/22 12:38 Dose: Not Given Documented By: Admin: 10/09/22 08:34 Dose: Not Given Documented By: Admin: 10/08/22 20:52 Dose: 2 units Documented By: SU(2) Co-signed By: AMTarsha Admin: 10/08/22 17:48 Dose: Not Given Documented By: Admin: 10/08/22 12:59 Dose: Not Given Documented By: Admin: 10/08/22 09:08 Dose: 1 units Documented By: GISELLE Co-signed By: CARYN Admin: 10/07/22 22:09 Dose: 1 units Documented By: AMTarsha(2) Co-signed By: SU Losartan Potassium (Losartan Potassium 25 Mg Tab) 25 mg PO DAILY [facility] Stop: 11/11/22 08:59 Last Admin: 10/14/22 08:49 Dose: 25 mg Documented By: Admin: 10/13/22 08:45 Dose: 25 mg Documented By: Admin: 10/12/22 08:48 Dose: 25 mg Documented By: SANDRA Magnesium Oxide (Magnesium Oxide 400 Mg Tab) 400 mg PO DAILY [facility]IE Stop: 11/07/22 08:59 Last Admin: 10/14/22 08:48 Dose: 400 mg Documented By: Admin: 10/13/22 08:45 Dose: 400 mg Documented By: Admin: 10/12/22 08:48 Dose: 400 mg Documented By: Admin: 10/11/22 09:13 Dose: 400 mg Documented By: Admin: 10/10/22 08:17 Dose: 400 mg Documented By: Admin: 10/09/22 08:35 Dose: 400 mg Documented By: Admin: 10/08/22 09:05 Dose: 400 mg Documented By: GISELLE Metoprolol Succinate (Metoprolol Succ 25mg Ext Rel Tab) 25 mg PO QAM [facility] Stop: 11/12/22 10:29 Last Admin: 10/14/22 08:48 Dose: 25 mg Documented By: Admin: 10/13/22 11:43 Dose: 25 mg Documented By: SANDRA Miscellaneous (Carbohydrates For Hypoglycemia ) 15 - 30 gm PO UD PRN PRN Reason: Hypoglycemia Protocol Stop: 11/06/22 21:19 Last Admin: 10/11/22 20:13 Dose: 15 gm Documented By: MANDO Multivitamins/Folic Acid/Vitamin C (Multivitamin Chewable Tab) [facility] Stop: 11/07/22 13:14 Last Admin: 10/14/22 08:48 Dose: 1 tab Documented By: Admin: 10/13/22 08:45 Dose: 1 tab Documented By: Admin: 10/12/22 08:49 Dose: 1 tab Documented By: Admin: 10/11/22 09:12 Dose: 1 tab Documented By: Admin: 10/10/22 08:17 Dose: 1 tab Documented By: Admin: 10/09/22 08:36 Dose: 1 tab Documented By: Admin: 10/08/22 14:52 Dose: 1 tab Documented By: GISELLE Saccharomyces Boulardii (Saccharomyces Boulardii 250 Mg Cap) 250 mg PO DAILY [facility] Stop: 11/07/22 08:59 Last Admin: 10/14/22 08:49 Dose: 250 mg Documented By: Admin: 10/13/22 08:45 Dose: 250 mg Documented By: Admin: 10/12/22 08:49 Dose: 250 mg Documented By: Admin: 10/11/22 09:12 Dose: 250 mg Documented By: Admin: 10/10/22 08:18 Dose: 250 mg Documented By: Admin: 10/09/22 08:36 Dose: 250 mg Documented By: Admin: 10/08/22 09:05 Dose: 250 mg Documented By: GISELLE Tamsulosin HCl (Tamsulosin Hcl 0.4 Mg Cap) 0.4 mg PO PM [facility] Stop: 11/06/22 21:19 Last Admin: 10/13/22 22:13 Dose: 0.4 mg Documented By: Admin: 10/12/22 21:51 Dose: 0.4 mg Documented By: Admin: 10/11/22 21:14 Dose: 0.4 mg Documented By: Admin: 10/10/22 20:26 Dose: 0.4 mg Documented By: Admin: 10/09/22 20:32 Dose: 0.4 mg Documented By: AMTarsha Admin: 10/08/22 20:58 Dose: 0.4 mg Documented By: US(2) Admin: 10/07/22 22:00 Dose: 0.4 mg Documented By: SU(2) Vitamin D (Cholecalciferol 1,000 Units 25 Mcg Tab) 2,000 units PO PM [facility] Stop: 11/06/22 21:29 Last Admin: 10/13/22 22:12 Dose: 2,000 units Documented By: CUSTOMER EXPERIENCE ANALYST Admin: 10/12/22 21:52 Dose: 2,000 units Documented By: Admin: 10/11/22 21:14 Dose: 2,000 units Documented By: Admin: 10/10/22 20:26 Dose: 2,000 units Documented By: AMTarsha Admin: 10/09/22 20:32 Dose: 2,000 units Documented By: Admin: 10/08/22 20:57 Dose: 2,000 units Documented By: SU(2) Admin: 10/07/22 22:00 Dose: 2,000 units Documented By: SU(2) Warfarin Sodium (Warfarin Sod 3 Mg Tab) 3 mg PO SUTUWETHFRSA@1600 [facility] Stop: 11/07/22 15:59 Last Admin: 10/08/22 16:53 Dose: 3 mg Documented By: GISELLE Warfarin Sodium (Warfarin Sod 2 Mg Tab) 2 mg PO DAILY@1600 [facility] Stop: 11/09/22 15:59 Last Admin: 10/14/22 16:33 Dose: 2 mg Documented By: Admin: 10/13/22 17:01 Dose: 2 mg Documented By: Admin: 10/12/22 16:32 Dose: 2 mg Documented By: Admin: 10/11/22 16:49 Dose: 2 mg Documented By: Admin: 10/10/22 17:26 Dose: 2 mg Documented By: KIARA
[2022-10-14] MEDS: TAMSULOSIN HCL 0.4 MG CAP PO SCH (20:20)
[2022-10-14] MEDS: CYANOCOBALAMIN (B-12) 500 MCG TABLET PO SCH (20:20)
[2022-10-14] MEDS: CHOLECALCIFEROL 1,000 UNITS 25 MCG TAB PO SCH (20:20)
[2022-10-15 06:26] LABS: BUN Creatinine Ratio 21.9 (10-20); Calcium 8.5 mg/dl (8.6-10.3); Creatinine Clr Calc Pharmacy 57.8 ml/min; Est GFR (African American) 55.7 ml/min
[2022-10-15 06:40] LABS: INR 1.5 (0.9-1.1); Prothrombin Time 16.4 Seconds (9.0-12.0)
[2022-10-15] MEDS: MULTIVITAMIN CHEWABLE TAB PO SCH (08:22)
[2022-10-15] MEDS: LOSARTAN POTASSIUM 25 MG TAB PO SCH (08:22)
[2022-10-15] MEDS: SACCHAROMYCES BOULARDII 250 MG CAP PO SCH (08:22)
[2022-10-15] MEDS: DOXYCYCLINE HYCLATE 100 MG CAP PO SCH ×2 (08:22→21:14)
[2022-10-15] MEDS: ASPIRIN 81 MG ECTAB PO SCH (08:22)
[2022-10-15] MEDS: MAGNESIUM OXIDE 400 MG TAB PO SCH (08:22)
[2022-10-15] MEDS: METOPROLOL SUCC 25MG EXT REL TAB PO SCH (08:22)
[2022-10-15] MEDS: INSULIN ASPART PER UNIT CHARGE SC SCH ×4 (08:28→20:27)
[2022-10-15] MEDS ORDERED: WARFARIN SOD 4 MG TAB PO SCH (16:00)
--- NOTE | 2022-10-15 18:32 | Hospitalist Progress Note ---
Date of Service October 15, 2022 Assessment & Plan (1) Cellulitis of right lower extremity: (2) Hx MRSA infection: (3) Acute dyspnea: (4) CHF (congestive heart failure): (5) Diabetes type 2 with atherosclerosis of arteries of extremities: (6) Acute kidney injury superimposed on chronic kidney disease: (7) Atrial fibrillation: (8) Pacemaker: Plan: Patient is a 72 yr male with H/O Chronic atrial fibrillation anticoagulated on warfarin cardiac pacemaker in situ, CAD with history of coronary stent HTN, PAD, history of CVA, venous insufficiency T2DM with neuropathy, CKD stage IIIb, hyperparathyroidism, hyperlipidemia, sleep apnea on BiPAP, vitamin D deficiency, vitamin B12 deficiency, history of toe amputations R great toe/2and 3rd distal phalanx, history of gastric bypass, depression who presents secondary to shortness of breath x 2 weeks. Dyspnea without clear etiology at this point, no oxygen requirement, no signs of decompensation or overload. Patient now declines rehab and will discharge home tomorrow with home health services. #Right lower extremity cellulitis #Right diabetic foot wound-POA #H/O MRSA #Chronic venous stasis --Venous Doppler:No evidence of deep venous thrombus within the bilateral lower extremities. Mildly enlarged right inguinal lymph node. This node contains a fatty hilum and is probably benign. This may be reactive. A follow-up right groin ultrasound in 3 months is recommended to ensure stability/resolution. -- Blood cultures negative to date Plan for OP US in 3 months for right inguinal LAD Continue local wound care Nonweightbearing right lower extremity Needs follow-up with wound clinic upon discharge Continue doxycycline 100mg bid with EOT 10/15 Flexeril prn for spasm #NSVT No further runs of NSVT -Cardiology follow up as OP -Continue Metoprolol succinate 25mg daily after discussion with Cardiology #Dyspnea on exertion, possibly secondary to deconditioning #Chronic diastolic heart failure --CXR:No acute abnormalities and in particular no radiographic evidence of pneumonia. Stable cardiomegaly. --ECHO outpatient 10/04/2022 which showed normal LVEF of 55%, mildly increased concentric LVH, septal motion abnormal consistent with right ventricular pacemaker, mild aortic valve sclerosis present mild TR mild pulmonary hypertension Cardiology on consult, no concern for decompensated heart failure -Lasix as needed -Continue to monitor pulse oximetry and volume status #Chronic atrial fibrillation on AC #Tachybrady syndrome S/P PPM #Supratherapeutic INR -Monitor INR 1.7 today -Continue regimen 4mg warfarin nightly while inpatient -resume home regimen when discharge, AC follow up next week #Hypokalemia *resolved Replete electrolytes as needed #Mild elevation of troponin*resolved Likely demand ischemia iso infection Monitor #JORGE on CKD III *improved Baseline Cr:~ 1.5 Monitor renal function Avoid nephrotoxic agents as able #DM II #PAD/PVD/Neuropathy/Ulcer HbA1c 6.7 Discontinue home Jardiance--do not resume on discharge given significant infection Continue Lantus/NovoLog per protocol #MINERVA Bipap at HS #HLD Continue statin on discharge Code Status FULL CODE Admission and Anticipated Discharge Date Admission Date: October 07, 2022 Subjective Patient states he has no transportation today 2/2 game and traffic, daughter is over an hour+ drive Request discharge tomorrow am for safe dispo Denies any new complaints Review of Systems Review of Systems: All systems reviewed & are unremarkable except as noted in Subjective Physical Exam Constitutional: WD/WN, vitals as above Eyes: PERRL, conjunctivae normal, anicteric sclerae ENMT: external ear and nose normal, oropharynx normal Neck: trachea midline, no thyromegaly Respiratory: normal respiratory effort, lungs clear to auscultation Gastrointestinal (Abdomen): normal bowel sounds, soft, nontender, no hepatosplenomegaly Results & Data Results & Data Vital Signs (Past 12 Hours) Vital Signs Temp Pulse Resp BP Pulse Ox O2 Del Method 10/15/22 15:58 36.4 C L 61 16 122/76 97 Room Air 10/15/22 11:20 36.4 C L 62 18 113/73 96 Room Air 10/15/22 08:09 36.4 C L 62 18 120/75 97 Room Air Laboratory Results [facility] 10/15/22 05:28 Sodium 136 Potassium 5.0 Chloride 108 H Carbon Dioxide 26 BUN 32 H Creatinine 1.46 H Glucose 95 Calcium 8.5 L Diagnostic Findings No new data for review Medications Administered Home Medications Medication Instructions Recorded Confirmed Last Taken pediatric [id number] 1 tab PO PM ##0 04/11/13 10/07/22 12/31/20 23:00 (Ne Complete (iron) chewable tablet) atorvastatin 40 mg tablet 40 mg PO PM #0 tabs 01/08/17 10/07/22 12/31/20 22:00 cholecalciferol (vitamin D3) 25 2,000 unit PO PM 10/18/17 10/07/22 12/31/20 23:00 mcg (1,000 unit) capsule (Vitamin D3) cyanocobalamin (vitamin B-12) 1,000 mcg PO PM 05/06/19 10/07/22 12/31/20 23:00 1,000 mcg tablet furosemide 20 mg tablet 20 mg PO DAILY PRN swelling 05/06/19 10/07/22 12/31/20 08:00 tamsulosin 0.4 mg capsule 0.4 mg PO PM 05/06/19 10/07/22 12/31/20 23:00 magnesium oxide 400 mg PO DAILY 09/26/19 10/07/22 12/31/20 23:00 losartan 50 mg tablet 50 mg PO DAILY 08/11/20 10/07/22 12/31/20 23:00 triamcinolone acetonide 0.1 % 1 applic topical BID PRN Rash 08/11/20 10/07/22 08/10/20 topical cream acetaminophen 500 mg tablet 1,000 mg PO Q6H PRN Pain 12/17/20 10/07/22 12/27/20 aspirin 81 mg tablet 81 mg PO DAILY 12/21/20 10/07/22 12/30/20 23:00 empagliflozin 10 mg tablet 10 mg PO DAILY 10/07/22 10/07/22 Unknown (Jardiance) warfarin 3 mg tablet 3 mg PO [id number]@159910/07/22 10/07/22 Unknown warfarin 3 mg tablet 6 mg PO MO@1600 10/07/22 10/07/22 Unknown Active Medications Generic Name Dose Route Start Last Admin Trade Name Freq PRN Reason Stop Dose Admin Acetaminophen 650 mg 10/07/22 21:20 10/12/22 23:35 Acetaminophen 325 Mg Tab PO 11/06/22 21:19 650 mg Q4H PRN Administration Pain or Fever Aspirin 81 mg 10/08/22 09:00 10/15/22 08:22 Aspirin 81 Mg Ectab PO 11/07/22 08:59 81 mg DAILY COOKIE Administration Cyanocobalamin 1,000 mcg 10/07/22 21:30 10/14/22 20:20 Cyanocobalamin (B-12) 500 Mcg Tablet PO 11/06/22 21:29 1,000 mcg PM COOKIE Administration Cyclobenzaprine HCl 10 mg 10/13/22 09:56 10/13/22 22:16 Cyclobenzaprine Hcl 10 Mg Tab PO 11/12/22 09:55 10 mg Q8H PRN Administration spasm Doxycycline Hyclate 100 mg 10/13/22 09:00 10/15/22 08:22 Doxycycline Hyclate 100 Mg Cap PO 10/15/22 21:00 100 mg BID COOKIE Administration Insulin Aspart 0 units 10/07/22 21:20 10/15/22 17:28 Insulin Aspart Per Unit Charge SC 11/06/22 21:19 3 units ACHS [facility] Administration Losartan Potassium 25 mg 10/12/22 09:00 10/15/22 08:22 Losartan Potassium 25 Mg Tab PO 11/11/22 08:59 25 mg DAILY COOKIE Administration Magnesium Oxide 400 mg 10/08/22 09:00 10/15/22 08:22 Magnesium Oxide 400 Mg Tab PO 11/07/22 08:59 400 mg DAILY COOKIE Administration Metoprolol Succinate 25 mg 10/13/22 10:30 10/15/22 08:22 Metoprolol Succ 25mg Ext Rel Tab PO 11/12/22 10:29 25 mg QAM [facility] Administration Miscellaneous 15 - 30 gm 10/07/22 21:20 10/11/22 20:13 Carbohydrates For Hypoglycemia PO 11/06/22 21:19 15 gm UD PRN Administration Hypoglycemia Protocol Multivitamins/Folic Acid/Vitamin C 1 tab 10/08/22 13:15 10/15/22 08:22 Multivitamin Chewable Tab PO 11/07/22 13:14 1 tab QAM [facility] Administration Saccharomyces Boulardii 250 mg 10/08/22 09:00 10/15/22 08:22 Saccharomyces Boulardii 250 Mg Cap PO 11/07/22 08:59 250 mg DAILY C[facility]IE Administration Tamsulosin HCl 0.4 mg 10/07/22 21:20 10/14/22 20:20 Tamsulosin Hcl 0.4 Mg Cap PO 11/06/22 21:19 0.4 mg PM COOKIE Administration Vitamin D 2,000 units 10/07/22 21:30 10/14/22 20:20 Cholecalciferol 1,000 Units 25 Mcg Tab PO 11/06/22 21:29 2,000 units PM COOKIE Administration Warfarin Sodium 3 mg 10/08/22 16:00 10/08/22 16:53 Warfarin Sod 3 Mg Tab PO 11/07/22 15:59 3 mg SUTUWETHFRSA@1600 [facility] Administration Warfarin Sodium 4 mg 10/15/22 16:00 10/15/22 17:29 Warfarin Sod 4 Mg Tab PO 11/14/22 15:59 4 mg DAILY@1600 [facility] Administration
[2022-10-15] MEDS: CHOLECALCIFEROL 1,000 UNITS 25 MCG TAB PO SCH (21:13)
[2022-10-15] MEDS: TAMSULOSIN HCL 0.4 MG CAP PO SCH (21:13)
[2022-10-15] MEDS: ACETAMINOPHEN 325 MG TAB PO PRN (21:14)
[2022-10-15] MEDS: CYANOCOBALAMIN (B-12) 500 MCG TABLET PO SCH (21:14)
[2022-10-16 06:24] LABS: Hematocrit (blood only) 37.7 % (42.0-52.0); Hemoglobin 12.6 g/dl (14.0-18.0); Mean Corpuscular Hemoglobin 28.4 pg (25.0-34.0); Mean Corpuscular Hgb Conc 33.4 g/dL (32.0-36.0); Mean Corpuscular Volume 85.1 fL (80.0-100.0); Mean Platelet Volume 10.5 fL (9.4-12.4); Platelet Count 290 K/uL (130-400); RDW Coefficient of Variation 16.9 % (11.5-14.5); RDW Standard Deviation 52.4 fL (36.4-46.3); Red Blood Count 4.43 M/uL (4.70-6.10); White Blood Count 3.89 K/ul (4.8-10.8)
[2022-10-16 07:30] LABS: INR 1.4 (0.9-1.1); Prothrombin Time 15.2 Seconds (9.0-12.0)
[2022-10-16] MEDS: LOSARTAN POTASSIUM 25 MG TAB PO SCH (08:09)
[2022-10-16] MEDS: METOPROLOL SUCC 25MG EXT REL TAB PO SCH (08:09)
[2022-10-16] MEDS: MAGNESIUM OXIDE 400 MG TAB PO SCH (08:09)
[2022-10-16] MEDS: MULTIVITAMIN CHEWABLE TAB PO SCH (08:09)
[2022-10-16] MEDS: ASPIRIN 81 MG ECTAB PO SCH (08:09)
[2022-10-16] MEDS: SACCHAROMYCES BOULARDII 250 MG CAP PO SCH (08:09)
[2022-10-16] MEDS: INSULIN ASPART PER UNIT CHARGE SC SCH ×2 (09:05→13:13)
[2022-10-16] MEDS ORDERED: WARFARIN SOD 6 MG TAB PO SCH (16:00)
--- NOTE | 2022-10-16 18:26 | Discharge Summary ---
Date of Service October 16, 2022 Follow Up Note: [ ] Repeat US RLE to follow up on right inguinal LAD in 3 months (01/2023) Admission HPI Per Admitting Provider This is a 72-year-old male who has a significant past medical history of chronic atrial fibrillation anticoagulated on warfarin cardiac pacemaker in situ, CAD with history of coronary stent HTN, PAD, history of CVA, venous insufficiency T2DM with neuropathy, CKD stage IIIb, hyperparathyroidism, hyperlipidemia, sleep apnea on BiPAP, vitamin D deficiency, vitamin B12 deficiency, history of toe amputations R great toe/2and 3rd distal phalanx, history of gastric bypass, depression who presents secondary to shortness of breath x 2 weeks. Of significance he was seen and evaluated at PCPs office today while at cardiology clinic for pacemaker check secondary to complaints of shortness of breath. He has had shortness of breath for the past several months but has been worsening the last couple weeks. He has not been taking his Lasix at home due to weight being down. Currently his weight is 130 and baseline is typically 1 34-1 35. In clinic today he weighed 138 with clothes and shoes but this was down from 154 in June 2022. Patient admits to having shortness of breath for several months however worsened over the last 2 weeks. At baseline patient would get out of breath with exertion; however, now he is getting out of breath with even activities of daily living. He states his weights are trending down and he has not been taking Lasix because his legs have not been swollen. However the last 2 to 3 days he has noticed increased swelling, redness to his right leg. Patient follows with clear foot wound clinic secondary to an ulcer to the right foot. Currently he states they are treating him with a skin graft dressing. He does not note any increasing pain to the foot but he does note increasing pain to the right leg. He has had a poor appetite for the last 2 to 3 days. He denies any orthopnea or PND. He does have a recliner and hospital bed at home and does tend to sleep a little bit elevated. He otherwise denies recent illness, fever, chills, sweats, lightheadedness, dizziness, chest pain, cough, hemoptysis, nausea, vomiting, abdominal pain. He feels his bowels are moving adequately and he is urinating without difficulty. He has otherwise been taking his medications as prescribed.In ED patient remained hemodynamically stable. Lab work significant for elevated WBC at 11.6 K, H&H 13.0 and 39.9, INR 3.1, sodium 133, BUN 33, creatinine 1.93, glucose 170, total bilirubin 1.5, Trope 34.3, BNP 453 and chest x-ray negative for any acute abnormality. His EKG revealed a ventricular paced rhythm in atrial fibrillation but otherwise did not note any ST or T wave changes. Admission Exam Per Admitting Provider Constitutional: WD/WN, M, sitting up in bed, vitals as above, NAD, sitting up in bed, pleasant, conversing easily Head: Normocephalic, Atraumatic, b/l temporal wasting Eyes: PERRL, conjunctivae normal, anicteric sclerae ENMT: external ear and nose normal, oropharynx normal dry membranes Neck: trachea midline, no thyromegaly normal visual inspection Respiratory: normal respiratory effort, lungs clear to auscultation, no wheeze, rales, rhonchi. Normal insp/exp effort, no accessory muscle use Cardiovascular: IRR/IRR, no murmur, B/L chronic venous stasis changes with RLE Increased edema/erythema with streaking up posterior thigh , tubigrip to LLE, wound to R foot, dressing removed, no surrounding erythema, Vessels: no JVD or carotid bruit Chest: normal inspection of chest Abdomen: normal bowel sounds, obese abd, soft, nontender, Musculoskeletal: no cyanosis or clubbing, AROM x 4 Skin: no rashes, warm and dry normal turgor Neurologic: PERRL, EOMI, accommodation nl, no face palsy, no dysarthria CN's II-XI intact bilaterally and moves all extremities Psychiatric: A+Ox3, euthymic affect Lymphatic: no cervical or axillary lymphadenopathy : deferred Principal Diagnosis Acute on Chronic Heart Failure with preserved ejection fraction Discharge Exam Constitutional WD/WN, vitals as above Eyes PERRL, conjunctivae normal, anicteric sclerae ENMT external ear and nose normal, oropharynx normal Neck trachea midline, no thyromegaly Respiratory normal respiratory effort, lungs clear to auscultation Cardiovascular RRR, no murmur, no edema Gastrointestinal (Abdomen) normal bowel sounds, soft, nontender, no hepatosplenomegaly Musculoskeletal no cyanosis or clubbing, extremities motor strength 5/5 Skin diffuse dusky skin discoloration on bilateral lower extremities with clean kerlex on right lower extremity Discharge Data Allergies Allergy/AdvReac Type Severity Reaction Status Date / Time No Known Allergies Allergy Verified 05/12/22 11:02 Consultations 10/07/22 18:33 ED Decision to Admit Stat 10/07/22 21:20 Consult Cardiology Routine 10/10/22 17:01 Consult Podiatry Routine Ordered Studies 10/07/22 19:18 US venous doppler LE Routine Hospital Course (1) Cellulitis of right lower extremity: (2) Hx MRSA infection: (3) Acute dyspnea: (4) CHF (congestive heart failure): (5) Diabetes type 2 with atherosclerosis of arteries of extremities: (6) Acute kidney injury superimposed on chronic kidney disease: (7) Atrial fibrillation: (8) Pacemaker: Mr. Cooley is a 72year old gentleman with history of Chronic atrial fibrillation anticoagulated on warfarin, tachy-geronimo syndrome s/p cardiac pacemaker in situ, CAD with history of coronary stent HTN, PAD, history of CVA, venous insufficiency T2DM with neuropathy, CKD stage IIIb, hyperparathyroidism, hyperlipidemia, sleep apnea on BiPAP, vitamin D deficiency, vitamin B12 deficiency, history of toe amputations R great toe/2and 3rd distal phalanx, history of gastric bypass, depression who was admitted for dyspnea and concerns for right lower extremity cellulitis. Patient was IV diuersed and started on Daptomycin for MRSA wound infection. Cardiology was not suspicious for congestive heart failure as imaging was clear and physical exam not consistent with overload. Diuretics were then held and patient continued with adequate diuresis. Podiatry followed closely and noted that graft over wound on right foot was intact and that it appear to be improving. Patient's weightbearing status remained non-weightbearing and PT/OT recommended inpatient rehab. Patient was to leave for rehab, but ultimately declined wishing to go home instead with home health. On the day of discharge, patient was eating well, denied any acute concerns, and stated pain was well managed. #Right lower extremity cellulitis #Right diabetic foot wound-POA #H/O MRSA #Chronic venous stasis Completed 10 days course of antibiotics for MRSA cellulitis Nonweightbearing right lower extremity per podiatry [ ] follow-up with wound clinic upon discharge [ ] OP US in 3 months for right inguinal LAD #NSVT No further runs of NSVT -Cardiology follow up as OP -Continue Metoprolol succinate 25mg daily #Dyspnea on exertion, possibly secondary to deconditioning #Chronic diastolic heart failure --CXR:No acute abnormalities and in particular no radiographic evidence of pneumonia. Stable cardiomegaly. --ECHO outpatient 10/04/2022 which showed normal LVEF of 55%, mildly increased concentric LVH, septal motion abnormal consistent with right ventricular pacemaker, mild aortic valve sclerosis present mild TR mild pulmonary hypertension Cardiology on consult, no concern for decompensated heart failure -Continue home lasix regimen as needed -Reduced home Losartan 25mg daily -Continue Metoprolol #Chronic atrial fibrillation on AC #Tachybrady syndrome S/P PPM #Supratherapeutic INR -Resume home regimen with AC follow up next week #JORGE on CKD III resolved #DM II #PAD/PVD/Neuropathy/Ulcer HbA1c 6.7 Discontinued home Jardiance--do not resume on discharge given significant infection Follow up PCP #MINERVA Continue Bipap at HS #HLD Continue statin on discharge Code Status FULL CODE Home Health Attestation I certify that this patient is under my care and that I, or a physicians expanded duty dental assistant working with me, had a face to-face encounter that meets the home health [id number] encounter requirements with this patient. The encounter with the patient was in whole, or in part, for the following medical condition, which is the primary reason for home health care (list medical condition): acute on chronic CHF- right foot wound I certify that, based on my findings, the following services are medically necessary home health services: My clinical findings support the need for the above services because: OT Assess ADL Status and Restore Function w ADLs PT Assessment for Endurance / Balance / Strength PT Eval for Safety and Mobility PT Eval for Safety, Gait Training, Assistive Devices PT Gait and Balance Training, Strengthening and Safety Further, I certify that my clinical findings support that this patient is homebound (i.e. absences from home require considerable and taxing effort and are for medical reasons or holiness services or infrequently or of short duration when for other reasons) because: Supportive Aid - Walker Transportation Assistance/Unable to Leave Home Unassisted Certification for Home Health Services: Based on the above findings, I certify that this patient is confined to the home and needs intermittent custodial care, physical therapy and/or speech th erapy or continues to need occupational therapy. The patient is under my care, and I have initiated the establishment of the plan of care. This patient will be followed by a physician who will periodically review the plan of care. Total Time Total Time Spent Total Time Spent (In Minutes): Time spent evaluating patient, direct bedside care, chart review, placing orders, interpretation of diagnostic studies, discussion with consultants, patient, and family members, as well as other required patient management activities is 45 minutes. Discharge Plan Discharge Items Patient Disposition: Home - Home Health Services Reason For Visit: ACUTE ON CHRONIC HFPEF Discharge Diagnosis: Dyspnea Right Lower Extremity Cellulitis superimpose on diabetic foot wound Activity: As commented below Activity Comment: Resume activity as instructed by development trainer; Nonweightbearing Right Foot Lifting: Gradually increase as tolerated Weightbearing: Right non-weightbearing Non-emergency contact: Primary Care Provider and Specialist Call non-emergency contact if: you have any medication questions and your symptoms worsen Follow-up/Referrals: Jocelyne Desai, [Primary Care Provider] - (Date & Time 10/20/2022 2:00 PM Provider Savanna Al PA-C Department Family Medicine [facility] ) Diet: Carb Consistent or DM2 and Heart Healthy Addtl Attending Provider Instructions: You were admitted for shortness of breath and infection of your right lower foot. Cardiology evaluated you for concerns of heart failure exacerbation. Imaging and exam did not suggest your shortness of breath was related to your heart. Additionally, your chest xray didn't show signs of pneumonia or acute concerns and your oxygen levels remains excellent on room air. This does not mean that your concerns aren't real or the evaluation stops with your inpatient stay. It is recommended you follow up closely with your Primary Care Provider and [facility] for deeper look into your concerns. There is a possible component that this is related to deconditioning, given that you must not bear weight on your right leg, that degree of exertion is quite demanding. It was recommended that you attend an inpatient therapy; however, given your request for home health services, those will likely begin on 10/18. Case management will be in contact to discuss further. Here are the following recommendations from your stay: #Right Foot Infection -You successfully completed 10 days of antibiotics for your right food infection -Follow up with wound care and podiatry #NSVT (intermittent fast heart beat) -It was noted that your heart occasionally beats really fast, even at rest. -Cardiology recommended the following medication *Metoprolol Succinate 25mg daily #Dyspnea (shortness of breath) #Chronic Heart Failure -Continue Losartan, but at reduced dose from 50mg to 25mg -Take your lasix (water pill) as previously directed #Diabetes -Continue your home insulin regimen -Discontinue Jardiance given recent infection #Chronic Atrial Fibrillation -Resume home warfarin regimen and follow up in AC clinic in the coming week Continue all other home medications as directed by your primary provider Pending Studies at Discharge: No Stand-Alone Forms: My [facility] [employer], Smoking Cessation Medications and DC Order Prescriptions: New cyclobenzaprine 10 mg Tablet 10 mg PO Q8H PRN (Reason: muscle spasm) Qty: 15 0RF losartan 25 mg Tablet 25 mg PO DAILY Qty: 30 0RF metoprolol succinate 25 mg Tablet Extended Release 24 Hr 25 mg PO QAM Qty: 30 0RF Continued magnesium oxide 400 mg magnesium capsule 400 mg PO DAILY Flintstones Complete (iron) Tablet,Chewable 1 tab PO PM Qty: 0 atorvastatin 40 mg Tablet 40 mg PO PM Qty: 0 cholecalciferol (vitamin D3) [Vitamin D3] 1,000 unit Capsule 2,000 unit PO PM tamsulosin 0.4 mg Capsule 0.4 mg PO PM cyanocobalamin (vitamin B-12) 1,000 mcg Tablet 1,000 mcg PO PM furosemide 20 mg tablet 20 mg PO DAILY PRN (Reason: swelling) Rx Instructions: AM triamcinolone acetonide 0.1 % Cream 1 applic TOPICAL BID PRN (Reason: Rash) Rx Instructions: To affected area acetaminophen 500 mg Tablet 1,000 mg PO Q6H PRN (Reason: Pain) aspirin 81 mg Tablet 81 mg PO DAILY warfarin 3 mg Tablet 6 mg PO MO@1600 warfarin 3 mg Tablet 3 mg PO SUTUWETHFRSA@1600 Discontinued losartan 50 mg tablet 50 mg PO DAILY Jardiance 10 mg tablet 10 mg PO DAILY Discharge Orders: Discharge Order- CHF (Routine); Ordered 10/16/22 Ordered By: Barbie Barbosa/Other Patient Handouts: Diabetes: Keeping Feet Healthy Admission Data Admit Date/Time: 10/07/22 18:58 Attending Provider: Barbie Keller Admit Provider: Ty Cook Primary Care Provider: Jocelyne Desai Other Providers: Marsha Ludwig ; Kaiden Malcolm Other Interventions: Discharge Summary Assessment (RN) Last Done: 10/16/22 14:45
--- NOTE | 2022-10-17 14:35 | Electrocardiogram Report ---
Test Reason : Blood Pressure : / mmHG Vent. Rate : 060 BPM Atrial Rate : 060 BPM P-R Int : 000 ms QRS Dur : 202 ms QT Int : 536 ms P-R-T Axes : 000 -73 109 degrees QTc Int : 536 ms Ventricular-paced rhythm Abnormal ECG When compared with ECG of 08-OCT-2022 05:04, No significant change was found Confirmed by Danilo Watson ([id number]) on 10/17/2022 2:35:38 PM Referred By: REFERRED SELF Confirmed By:Danilo Watson
== END 2022-10-16 14:47 | disposition home health service (06) | DRG 603 ==
LOC: ED 14:41 → 4W 18:58 → SUATTDRO 18:58 → 4W 21:18

== ENCOUNTER 2023-06-14 08:34 | Inpatient (IN) ==
--- NOTE | 2023-06-14 09:05 | Emergency Department Note ---
Impression & Plan Cellulitis of leg, right, Diabetic ulcer of right foot ED Provider Note NAME: RANI CHRISTIAN AGE: 72 SEX: M : 1950 ARRIVES VIA: Walk-In INFORMANT: Patient, ED PROVIDER(S): Olu Mccall DO CHIEF COMPLAINT: Cellulitis HPI: The patient is a 72-year-old male who presented to the emergency department for an evaluation of right leg swelling and pain. The patient has a history of cellulitis in his leg. He is currently being treated at the wound care center for an ulceration on the right foot. He is not currently on any medications. He has MRSA history as well. The patient states he has been having shortness of breath. He did not notice any fever. The patient was not seen by his family doctor for the symptoms. The swelling and the pain became worse over the course the last 48 hours so the patient came to the emergency department for further evaluation. ROS: See above HPI for pertinent positives & negatives. A total of 10 systems reviewed and were otherwise negative. PAST MEDICAL HISTORY: See Below PAST SURGICAL HISTORY: See Below FAMILY HISTORY: See Below SOCIAL HISTORY: See Below HOME MEDICATIONS: See Below ALLERGIES: See Below VITALS: See Below PHYSICAL EXAMINATION: GENERAL: Patient is awake alert in no acute distress patient is resting comfortably and showing no signs of anxiety EYES: The conjunctivae are clear. The pupils are round and reactive. EARS, NOSE, MOUTH AND THROAT: The nose is without any evidence of any deformity NECK: The neck is nontender and supple. RESPIRATORY: Normal respiratory effort is noted there is no evidence of wheezing rhonchi or rales CARDIOVASCULAR: Regular rate and rhythm noted there no murmurs rubs or gallops normal S1 normal S2. GASTROINTESTINAL: The abdomen is soft. Abdomen is nontender. MUSCULOSKELETAL/EXTREMITIES: There is no evidence of gross deformity full range of motion is noted in the hips and shoulders. SKIN: There is bilateral lower extremity swelling noted. There were compression dressings to both lower extremities. The right dressing was removed. There is significant erythema as well as some ulceration noted in the right calf. This was draining. There is also an ulceration on the ball of the right foot. Wound dressing was in place. NEUROLOGIC: Patient is awake alert and oriented x3 MEDICAL DECISION MAKING: The patient is a 72-year-old male who presented to the emergency department for an evaluation of right leg pain. The patient noticed right lower extremity swelling and redness over the course of the last few days. He has a history of cellulitis. He also has a history of a right foot diabetic ulcer which is being treated at the wound care center. The patient was not febrile but laboratory and radiographic studies would be suggestive of a significant underlying infection. The patient was not given a sepsis fluid bolus because of his underlying cardiac history. I discussed the patient's laboratory and radiographic studies with him and his family member. I also discussed his case with the on-call [facility]. They have agreed to evaluate the patient in the emergency department for further management and disposition. Triage Nursing notes reviewed. Prior medical records reviewed Vital Signs: reviewed and remarkable for no significant abnormalities Differential diagnosis: Cellulitis, abscess, MRSA infection, DVT, necrotizing fasciitis, dermatitis, drug eruption, allergic reaction, as well as other pathologies. ER treatment provided: See below Diagnostics interpreted by me: ECG: EKG was obtained in the emergency department. My interpretation is ventricular paced rhythm at 69 bpm. No ugashik beats were noted. This was compared to a tracing from October 13, 2022. No changes were noted Cardiac Monitoring: An order was placed for continuous cardiac monitoring. The monitor shows a rate of 75 bpm with paced rhythm. Laboratory studies: As stated above and show below. Imaging studies: See below. Radiographic imaging was reviewed by myself Consultation(s): I discussed this case with the Chanel who is on-call for the [facility] group. Past Med/Surg History Medical History Hyperlipemia Essential hypertension 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 kidney disease Degenerative cervical spinal stenosis Degenerative lumbar spinal stenosis Proliferative diabetic retinopathy Venous insufficiency of both lower extremities Erectile dysfunction Nonalcoholic 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 (PLATT) group home current use of 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 Hyperparathyroidism, secondary renal Esophageal obstruction Complex sleep apnea syndrome Vitamin B12 deficiency Persistent proteinuria Morbid obesity Paroxysmal SVT (supraventricular tachycardia) Myocardial Infarction 2017 > medically managed Diabetic peripheral neuropathy associated with type 2 diabetes mellitus Diabetes type 2, controlled NIDDM Peripheral arterial disease 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, EVELINE TPT/proximal MBA INTERN 10/2019, Right great toe amputation 07/2020 with revision 08/2020 Chronic anemia CVA (cerebral vascular accident) 01/2018; residual right sided weakness Mixed sleep apnea No device (previous BIPAP) CKD (chronic kidney disease), stage III Dyslipidemia Tachy-geronimo syndrome CHF (congestive heart failure) Acute renal failure superimposed on stage 3 chronic kidney disease 08/2020 hospitalization, UTI and osteomyelitis, necrotizing fasciitis Depression Pacemaker Left, normal single chamber pacemaker function with stable pacing and sensing thresholds per pacer check 12/08/20 [facility] Hypertension Sepsis 2013 Atrial fibrillation Surgical History History of amputation of lesser toe of right foot Hx of angioplasty Amputation toe Right great toe amputation (08/12/20): MAC at [facility] History of esophagogastroduodenoscopy (EGD) History of vascular surgery Left popliteal, EVELINE TPT/proximal MBA INTERN (10/2019) Right great toe I&D, revision amputation (08/21/20): MAC at [facility] History of hand surgery Tendon transfer Gastric bypass status for obesity Family History Brother Diabetes Mother Diabetes Father Diabetes Other Cancer Hypertension Social History Smoking Status: Never smoker Tobacco Type: Cigarettes Second Hand Exposure: No; Do You Dip or Chew Tobacco: No; Hx Alcohol Use: No Hx Substance Use: No Preferred Language: Khmer 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 Ability: Effective Visual Impairment: No Limitations Hearing Ability: Normal Weekend Caregiver Required: No Beliefs That Will Affect Care: None marital status: Current Living Situation: Alone Current Living Situation Comment: daughter lives upstairs and can provide help current occupational status: retired How many Children do You have: 2 Feels Safe at Home: Yes Diet Comment: Educated to increase protein, vitamin c, d and zinc Assistive Devices: Cane Allergies Allergies Allergy/AdvReac Type Severity Reaction Status Date / Time No Known Allergies Allergy Verified 05/12/22 11:02 Home Meds Home Medications Medication Instructions Recorded Confirmed pediatric [id number] 1 tab PO PM ##0 04/11/13 01/18/23 (Flintstones Complete (iron) chewable tablet) atorvastatin 40 mg tablet 40 mg PO PM #0 tabs 01/08/17 01/18/23 cholecalciferol (vitamin D3) 25 2,000 unit PO PM 10/18/17 01/18/23 mcg (1,000 unit) capsule (Vitamin D3) cyanocobalamin (vitamin B-12) 1,000 mcg PO PM 05/06/19 01/18/23 1,000 mcg tablet furosemide 20 mg tablet 20 mg PO DAILY PRN swelling 05/06/19 01/18/23 tamsulosin 0.4 mg capsule 0.4 mg PO PM 05/06/19 01/18/23 magnesium oxide 400 mg PO DAILY 09/26/19 01/18/23 triamcinolone acetonide 0.1 % 1 applic topical BID PRN Rash 08/11/20 01/18/23 topical cream acetaminophen 500 mg tablet 1,000 mg PO Q6H PRN Pain 12/17/20 01/18/23 aspirin 81 mg tablet 81 mg PO DAILY 12/21/20 01/18/23 warfarin 3 mg tablet 3 mg PO SUTUWETHFRSA@1600 10/07/22 01/18/23 warfarin 3 mg tablet 6 mg PO MO@1600 10/07/22 01/18/23 losartan 50 mg tablet 50 mg PO DAILY 01/18/23 01/18/23 semaglutide 0.25 mg or 0.5 mg (2 0.25 mg subcut WK 01/18/23 01/18/23 mg/1.5 mL) subcutaneous pen injector senna-docusate sodium tablet 1 tab PO DAILY 01/18/23 01/18/23 Previous Rx's Medication Instructions Recorded cyclobenzaprine 10 mg tablet 10 mg PO Q8H PRN muscle spasm #15 10/16/22 tabs metoprolol succinate 25 mg 25 mg PO QAM #30 tabs 10/16/22 tablet,extended release 24 hr Results & Data (ED) Vital Signs Vital Signs - 24 hr 06/14/23 08:40 06/14/23 08:40 06/14/23 08:40 Temperature 36.9 C Temperature Source Oral Pulse Rate 62 Pulse Rate [Apical] 62 Respiratory Rate 20 20 Respiratory Effort / Characteristics Non-Labored Non-Labored Respiratory Depth Normal Normal Blood Pressure 114/63 Blood Pressure [Right Arm] Blood Pressure Mean 80 Blood Pressure Mean [Right Arm] Pulse Oximetry 98 98 98 Oxygen Delivery Method Room Air Room Air Room Air Sepsis Recent Fever Within 48 Hours Yes Sepsis New/Unexplained Change in Mental Status Yes Sepsis Action Taken by Nursing No Action Required 06/14/23 08:58 06/14/23 09:31 Temperature Temperature Source Pulse Rate 61 Pulse Rate [Apical] 60 Respiratory Rate 20 Respiratory Effort / Characteristics Non-Labored Respiratory Depth Normal Blood Pressure Blood Pressure [Right Arm] 114/63 Blood Pressure Mean Blood Pressure Mean [Right Arm] 80 Pulse Oximetry 98 Oxygen Delivery Method Room Air Sepsis Recent Fever Within 48 Hours Sepsis New/Unexplained Change in Mental Status Sepsis Action Taken by Care Home Medications Current Medication List: was personally reviewed by me Laboratory Data Attestation: I reviewed the patient's lab results. 06/14/23 08:57 06/14/23 08:57 Lab Results 06/14/23 06/14/23 06/14/23 Range/Units 08:57 08:59 09:20 WBC 13.51 H (4.8-10.8) K/ul RBC 3.55 L (4.70-6.10) M/uL Hgb 10.5 L (14.0-18.0) g/dl Hct 32.1 L (42.0-52.0) % MCV 90.4 (80.0-100.0) fL MCH 29.6 (25.0-34.0) pg MCHC 32.7 (32.0-36.0) g/dL RDW Std Deviation 48.8 H (36.4-46.3) fL RDW Coeff of Jason 14.6 H (11.5-14.5) % Plt Count 103 L (130-400) K/uL MPV 12.4 (9.4-12.4) fL Immature Gran % (Auto) 0.8 % Neut % (Auto) 93.6 % Lymph % (Auto) 2.1 % Rush % (Auto) 3.4 % Eos % (Auto) 0.0 % Baso % (Auto) 0.1 % Neut # (Auto) 12.65 H (1.40-6.50) K/uL Lymph # (Auto) 0.28 L (1.20-3.40) K/uL Rush # (Auto) 0.46 (0.11-0.59) K/uL Eos # (Auto) 0.00 (0.00-0.50) K/uL Baso # (Auto) 0.01 (0.00-0.20) K/uL Immature Gran # (Auto) 0.11 (0.01-0.20) K/uL Toxic Granulation 1+ Dohle Bodies 1+ Polychromasia 1+ Echinocytes 1+ Acanthocytes (Spur) 2+ PT 25.7 H (9.0-12.0) Seconds INR 2.5 H (0.9-1.1) APTT 47 H (21-31) Seconds PTT Ratio 1.7 VBG pH 7.33 L (7.36-7.41) VBG pCO2 35 L (38-50) mmHg VBG pO2 24 mmHg VBG HCO3 19 mmol/L VBG O2 Saturation < 60.0 % VBG Base Excess -6.6 mEq/L Sodium 136 (136-145) mmol/L Potassium 3.6 (3.5-5.1) mmol/L Chloride 107 (98-107) mmol/L Carbon Dioxide 20 L (21-32) mmol/L Anion Gap 9 (3-11) BUN 57 H (6-23) mg/dl Creatinine 3.16 H (0.6-1.4) mg/dl Est Cr Clr Drug Dosing 27.4 ml/min Est GFR ( Amer) 21.9 ml/min Est GFR (Non-Af Amer) 18.9 ml/min BUN/Creatinine Ratio 18.0 (10-20) Glucose 105 H (70-99(Fasting)) mg/dl Lactate 1.9 (0.4-2.0) mmol/L Calcium 7.9 L (8.6-10.3) mg/dl Magnesium 1.5 L (1.7-2.4) mg/dl Total Bilirubin 1.3 H (0.2-1.0) mg/dl Direct Bilirubin 0.6 H (0-0.2) mg/dl AST 95 H (13-39) U/L ALT 59 H (7-52) U/L Alkaline Phosphatase 48 (34-104) U/L Troponin I High Sens 31.1 H (0-20) pg/ml Total Protein 6.3 (6.0-8.3) gm/dl Albumin 3.3 L (3.4-5.0) gm/dl Procalcitonin 10.40 H (0-0.5) ng/ml SARS-CoV-2 (PCR) (Negative) Influenza Type A (PCR) (Neg) Influenza Type B (PCR) (Neg) RSV (RT-PCR) (Neg) 06/14/23 Range/Units Unknown WBC (4.8-10.8) K/ul RBC (4.70-6.10) M/uL Hgb (14.0-18.0) g/dl Hct (42.0-52.0) % MCV (80.0-100.0) fL MCH (25.0-34.0) pg MCHC (32.0-36.0) g/dL RDW Std Deviation (36.4-46.3) fL RDW Coeff of Jason (11.5-14.5) % Plt Count (130-400) K/uL MPV (9.4-12.4) fL Immature Gran % (Auto) % Neut % (Auto) % Lymph % (Auto) % Rush % (Auto) % Eos % (Auto) % Baso % (Auto) % Neut # (Auto) (1.40-6.50) K/uL Lymph # (Auto) (1.20-3.40) K/uL Rush # (Auto) (0.11-0.59) K/uL Eos # (Auto) (0.00-0.50) K/uL Baso # (Auto) (0.00-0.20) K/uL Immature Gran # (Auto) (0.01-0.20) K/uL Toxic Granulation Dohle Bodies Polychromasia Echinocytes Acanthocytes (Spur) PT (9.0-12.0) Seconds INR (0.9-1.1) APTT (21-31) Seconds PTT Ratio VBG pH (7.36-7.41) VBG pCO2 (38-50) mmHg VBG pO2 mmHg VBG HCO3 mmol/L VBG O2 Saturation % VBG Base Excess mEq/L Sodium (136-145) mmol/L Potassium (3.5-5.1) mmol/L Chloride (98-107) mmol/L Carbon Dioxide (21-32) mmol/L Anion Gap (3-11) BUN (6-23) mg/dl Creatinine (0.6-1.4) mg/dl Est Cr Clr Drug Dosing ml/min Est GFR ( Amer) ml/min Est GFR (Non-Af Amer) ml/min BUN/Creatinine Ratio (10-20) Glucose (70-99(Fasting)) mg/dl Lactate (0.4-2.0) mmol/L Calcium (8.6-10.3) mg/dl Magnesium (1.7-2.4) mg/dl Total Bilirubin (0.2-1.0) mg/dl Direct Bilirubin (0-0.2) mg/dl AST (13-39) U/L ALT (7-52) U/L Alkaline Phosphatase (34-104) U/L Troponin I High Sens (0-20) pg/ml Total Protein (6.0-8.3) gm/dl Albumin (3.4-5.0) gm/dl Procalcitonin (0-0.5) ng/ml SARS-CoV-2 (PCR) NEGATIVE (Negative) Influenza Type A (PCR) Negative (Neg) Influenza Type B (PCR) Negative (Neg) RSV (RT-PCR) Negative (Neg) Administered Medications Magnesium Sulfate/Dextrose (Magnesium Sulfate / D5w) 1 gm in 100 mls @ 100 mls/hr IV NOW STA Stop: 06/14/23 10:43 Last Admin: 06/14/23 10:03 Dose: 100 mls/hr Documented By: NUSRAT Discontinued Medications Piperacillin Sod/Tazobactam Sod (Zosyn) 4.5 gm in 100 mls @ 200 mls/hr IV NOW ONE Stop: 06/14/23 10:13 Last Infusion: 06/14/23 10:37 Dose: Infused Documented By: Admin: 06/14/23 10:03 Dose: 200 mls/hr Documented By: NUSRAT Sodium Chloride (Nss) 500 mls @ 999 mls/hr IV .Q31M ONE Stop: 06/14/23 10:15 Last Infusion: 06/14/23 10:37 Dose: Infused Documented By: Admin: 06/14/23 10:04 Dose: 999 mls/hr Documented By: NUSRAT Imaging Data Attestation: I personally reviewed and interpreted this imaging study as follows: My Impression: 1 view chest x-ray was obtained in the emergency department. My interpretation is no free air, final report below. Radiologist's Impression: Chest X-Ray 06/14/23 08:52 SINGLE VIEW CHEST CLINICAL HISTORY: Sepsis. FINDINGS: An AP, portable, upright chest radiograph is compared to study dated 10/10/2022. A single lead cardiac pacemaker is unchanged in position. The heart is enlarged noting atherosclerotic calcification of the thoracic aorta. The pulmonary vasculature is noncongested. Chronic interstitial thickening is similar to previous. There is bibasilar scarring/atelectasis. The lungs and pleural spaces are otherwise clear. No pneumothorax is seen. The skeletal structures are osteopenic. The bony thorax is grossly intact. Fusion hardware is noted in the cervical spine. IMPRESSION: 1. Cardiomegaly and cardiac pacemaker without radiographic evidence of congestive failure. 2. No airspace consolidation or pleural effusion is identified. ACT 112: Negative or not required by law. Electronically signed by: River Castillo M.D. 06/14/2023 9:13 AM Venous Doppler Study 06/14/23 08:52 RIGHT LOWER EXTREMITY VENOUS DOPPLER HISTORY: Right leg swelling COMPARISON STUDY: None. FINDINGS: There is normal compressibility, flow, and augmentation within the right lower extremity deep venous system. A few enlarged right inguinal lymph nodes. Dominant lymph node measures 42 x 27 x 14 mm. Subcutaneous trace edema seen within the right lower extremity. IMPRESSION: 1. No DVT within the right lower extremity. 2. Right inguinal lymphadenopathy. This could be reactive. ACT 112: Negative or not required by law. Electronically signed by: Josafat Hein M.D. 06/14/2023 10:06 AM Discharge Plan Visit Data Chief Complaint: Swelling/Edema to Extremity Stated Complaint: SWELLING, RIGHT LEG PAIN ED Provider: Olu Mccall Discharge Problem: Cellulitis of leg, right, Diabetic ulcer of right foot Patient Disposition: Being Evaluated by Hospitalist Forms Stand Alone Forms: My [facility] Prescriptions Prescriptions: No Action magnesium oxide 400 mg magnesium capsule 400 mg PO DAILY Flintstones Complete (iron) Tablet,Chewable 1 tab PO PM Qty: 0 atorvastatin 40 mg Tablet 40 mg PO PM Qty: 0 cholecalciferol (vitamin D3) [Vitamin D3] 1,000 unit Capsule 2,000 unit PO PM tamsulosin 0.4 mg Capsule 0.4 mg PO PM cyanocobalamin (vitamin B-12) 1,000 mcg Tablet 1,000 mcg PO PM furosemide 20 mg tablet 20 mg PO DAILY PRN (Reason: swelling) Rx Instructions: AM triamcinolone acetonide 0.1 % Cream 1 applic TOPICAL BID PRN (Reason: Rash) Rx Instructions: To affected area acetaminophen 500 mg Tablet 1,000 mg PO Q6H PRN (Reason: Pain) aspirin 81 mg Tablet 81 mg PO DAILY warfarin 3 mg Tablet 6 mg PO MO@1600 warfarin 3 mg Tablet 3 mg PO SUTUWETHFRSA@1600 cyclobenzaprine 10 mg Tablet 10 mg PO Q8H PRN (Reason: muscle spasm) Qty: 15 0RF metoprolol succinate 25 mg Tablet Extended Release 24 Hr 25 mg PO QAM Qty: 30 0RF losartan 50 mg Tablet 50 mg PO DAILY senna-docusate sodium Tablet 1 tab PO DAILY semaglutide 0.25 mg or 0.5 mg(2 mg/1.5 mL) Pen Injector 0.25 mg SUBCUT WK Referrals Referrals: Jocelyne Desai DO [Primary Care Provider] - Discharge Problem: Diabetic ulcer of right foot Qualifiers: Diabetic foot ulcer location: unspecified part of foot Diabetes mellitus type: other specified (including ROSELINE) Non-pressure ulcer stage: unspecified non- pressure ulcer stage Qualified Code(s): E13.621 - Other specified diabetes mellitus with foot ulcer
--- NOTE | 2023-06-14 09:15 | XRay Report ---
SINGLE VIEW CHEST CLINICAL HISTORY: Sepsis. FINDINGS: An AP, portable, upright chest radiograph is compared to study dated 10/10/2022. A single le ad cardiac pacemaker is unchanged in position. The heart is enlarged noting atherosclerotic calcifica tion of the thoracic aorta. The pulmonary vasculature is noncongested. Chronic interstitial thickenin g is similar to previous. There is bibasilar scarring/atelectasis. The lungs and pleural spaces are o therwise clear. No pneumothorax is seen. The skeletal structures are osteopenic. The bony thorax is g rossly intact. Fusion hardware is noted in the cervical spine. IMPRESSION: 1. Cardiomegaly and cardiac pacemaker without radiographic evidence of congestive failure. 2. No airspace consolidation or pleural effusion is identified. ACT 112: Negative or not required by law. Electronically signed by: River Castillo M.D. 06/14/2023 9:13 AM
[2023-06-14 09:16] LABS: Hematocrit (blood only) 32.1 % (42.0-52.0); Hemoglobin 10.5 g/dl (14.0-18.0); Mean Corpuscular Hemoglobin 29.6 pg (25.0-34.0); Mean Corpuscular Hgb Conc 32.7 g/dL (32.0-36.0); Mean Corpuscular Volume 90.4 fL (80.0-100.0); Mean Platelet Volume 12.4 fL (9.4-12.4); Platelet Count 103 K/uL (130-400); RDW Coefficient of Variation 14.6 % (11.5-14.5); RDW Standard Deviation 48.8 fL (36.4-46.3); Red Blood Count 3.55 M/uL (4.70-6.10); White Blood Count 13.51 K/ul (4.8-10.8)
[2023-06-14 09:31] LABS: Albumin Level 3.3 gm/dl (3.4-5.0); Bilirubin Direct 0.6 mg/dl (0-0.2); Bilirubin,Total 1.3 mg/dl (0.2-1.0); Calcium 7.9 mg/dl (8.6-10.3); Creatinine Clr Calc Pharmacy 27.4 ml/min; Est GFR (African American) 21.9 ml/min; Est GFR (Non-African American) 18.9 ml/min; Magnesium 1.5 mg/dl (1.7-2.4); Potassium 3.6 mmol/L (3.5-5.1); Total Protein 6.3 gm/dl (6.0-8.3)
[2023-06-14 09:37] LABS: Troponin I High Sensitivity 31.1 pg/ml (0-20)
[2023-06-14 09:38] LABS: Base Excess VBG -6.6 mEq/L; HCO3 VBG 19 mmol/L; Oxygen Saturation VBG < 60.0 %; PCO2 VBG 35 mmHg (38-50); PO2 VBG 24 mmHg; pH VBG 7.33 (7.36-7.41)
[2023-06-14] MEDS ORDERED: VANCOMYCIN CONSULT ACTIVE PRN ×2 (09:44→10:47)
[2023-06-14 09:53] LABS: Acanthocytes 2+; Basophils # (auto) 0.01 K/uL (0.00-0.20); Basophils % (auto) 0.1 %; Dohle Bodies 1+; Echinocytes 1+; Immature Granulocytes # (auto) 0.11 K/uL (0.01-0.20); Immature Granulocytes % (auto) 0.8 %; Lymphocytes # (auto) 0.28 K/uL (1.20-3.40); Lymphocytes % (auto) 2.1 %; Monocytes # (auto) 0.46 K/uL (0.11-0.59); Monocytes % (auto) 3.4 %; Neutrophils # (auto) 12.65 K/uL (1.40-6.50); Neutrophils % (auto) 93.6 %; Polychromasia 1+; Toxic Granulation 1+
[2023-06-14 09:57] LABS: INR 2.5 (0.9-1.1); Partial Thromboplastin Ratio 1.7; Partial Thromboplastin Time 47 Seconds (21-31); Prothrombin Time 25.7 Seconds (9.0-12.0)
[2023-06-14 10:00] LABS: Influenza A virus by PCR Negative (Neg); Influenza B virus by PCR Negative (Neg); RSV by PCR Negative (Neg); SARS CoV2 RNA(COVID-19) Ceph NEGATIVE (Negative)
[2023-06-14] MEDS: PIPERACILLIN/TAZOBACTAM 4.5 GM/100 ML BAG IV ONE (10:03)
[2023-06-14] MEDS: MAGNESIUM SULFATE / D5W 1 GM/100 ML BAG IV STA (10:03)
[2023-06-14] MEDS: SODIUM CHLORIDE 0.9% 500 ML IV ONE (10:04)
--- NOTE | 2023-06-14 10:08 | Ultrasound Report ---
RIGHT LOWER EXTREMITY VENOUS DOPPLER HISTORY: Right leg swelling COMPARISON STUDY: None. FINDINGS: There is normal compressibility, flow, and augmentation within the right lower extremity de ep venous system. A few enlarged right inguinal lymph nodes. Dominant lymph node measures 42 x 27 x 1 4 mm. Subcutaneous trace edema seen within the right lower extremity. IMPRESSION: 1. No DVT within the right lower extremity. 2. Right inguinal lymphadenopathy. This could be reactive. ACT 112: Negative or not required by law. Electronically signed by: Josafat Hein M.D. 06/14/2023 10:06 AM
[2023-06-14] MEDS ORDERED: ONDANSETRON INJ 2 MG/ML 2 ML VIAL IV PRN (10:15)
--- NOTE | 2023-06-14 10:25 | History & Physical Report ---
Date of Service June 14, 2023 Assessment & Plan (1) Cellulitis of leg, right: (2) Hx MRSA infection: (3) Diabetic ulcer of right foot: (4) Diabetes type 2, controlled: (5) Atrial fibrillation: (6) Peripheral arterial disease: (7) Hypertension: (8) CVA (cerebral vascular accident): (9) Dyslipidemia: (10) Pacemaker: (11) Tachy-geronimo syndrome: (12) Acute kidney injury superimposed on chronic kidney disease: Plan 72 year old male with RLE cellulitis with IV abx including Dapto + Vanco given patient MRSA history and taking into consideration worsening kidney function, Infectious Disease input, WOCN consult, PT/OT and possible imaging to r/o osteo if no improvement. Will also monitor kidney function and seek consult from Nephrology. Will continue IV fluids for now and recheck BMP later this afternoon. Hold Nephrotoxic agents and replace Mg+. PT/OT pending any rehab placement needs. # Cellulitis: Non-healing ulcers: Acute Leukocytosis 13.51 Procalcitonin 10.4, lactate normal Blood cultures and UA obtained in ED Troponin 31.1; suspect ischemic demand rather than ACS Started on Zosyn plus Vanco in ED; Will adjust to Zosyn + Dapto for now given history of MRSA and keeping in mind nephrotoxicity Recheck MRSA screen Doppler US negative for DVT WOCN placed ID consult placed Consider CT RLE given history of Osteomyelitis when creatinine resolves; hold on imaging for now PT/OT for possible rehab needs #: JORGE on CKD Acute Serum creatinine 3.16; baseline 1.4-1.7 1L NS be administered in ED; continue @ 100ml/hour Recheck BMP 1800 Hold Nephrotoxic agents for now #: Hypomagnesemia: Acute Serum mag 1.5; 1 g administered in ED; check in a.m. #: HFrEF: Chronic Last ECHO 09/2022; normal LV wall motion, mildly concentric. EF 55-59%, mild MR, mild pHTN Takes Lasix 20 mg PRN based on weight; no recent weight fluctuations Took Lasix 40 mg PO on Monday. CXR negative for acute cardiopulmonary disease and no signs of pulmonary congestion Lungs CTA on exam # Atrial Fibrillation: Chronic Takes Coumadin; continue INR 2.5 Takes Metoprolol; continue #: HTN: Chronic takes Losartan; hold for now given JORGE; reassess # CAD: S/P Pacemaker: Chronic Pacer exchange a few weeks ago Follows with Dr. Carpenter with Cardiology #: NIDDM Diabetes: Chronic Last A1C 6.5 on 11/2022. Will recheck in AM. On Ozempic; hold while inpt Recheck A1C # HLD: Chronic takes Atorvastatin;hold for now while on Dapto d/t increased r/o rhabdo # BPH: Chronic. Takes Tamsulosin; continue Disposition: PCP: Dr. Jocelyne Desai COde status: Full VTE Prophylaxis: On Coumadin I spent a total of 88 minutes coordinating, documenting, and providing care for this patient excluding time spent in the performance of separately billed services. All of the aforementioned completed while collaborating with the assigned attending physician for a full treatment plan. Please see their addendum for further details. History of Present Illness Chief Complaint: R leg swelling Primary Care Provider: Jocelyne Desai DO Mr. Cooley is a 72 year old male that presents to the ED today with his family with complaints of persistent and worsening R leg swelling. He has a persistent history of lower extremity cellulitis with toe amputations. He was seen by his home health nurse on Monday for dressing changes of a right toe ulcer (he is not taking any antibiotics at this time for that). PMH includes: ischemic left MCA stroke (2018 inpatient stay at [facility]), AF ( On Coumadin), DM2, H/O CVA, HLD, CKD, tachy-geronimo syndrome s/p PM, depression, and HLD. Leukocytosis 13.51, elevated Procal 10.4, lactate normal. Creat 3.16; baseline 1.4-1.7. His most recent ECHO was 09/2022 LV wall motion normal, EF 55-59%, mild pHTN, mild TR. He was admitted at [facility] 05/05-05/25/19 for LLE cellulitis s/p fall and developed MRSA resistance. He was treated at that time with Dapto + Zosyn and later Augmentin upon discharge. Possible L popliteal stenosis was identified and advised to follow up as an outpatient. His creatinine at that time was 2.1 and improved to his baseline of 1.5. He lives a few apartments away from his daughter; he is generally independent and uses a can intermittently. He performs all of his own ADL's has help with Meals on Wheels for 2 meals per day and he makes his own dinner. He does appear slightly cachectic in his upper extremities. Patient will be admitted for further evaluation and management of his RLE cellulitis with IV abx including Dapto + Vanco given patient MRSA history and taking into consideration worsening kidney function, Infectious Disease input, WOCN consult, PT/OT and possible imaging to r/o osteo if no improvement. Will also monitor kidney function and seek consult from Nephrology. Will continue IV fluids for now and recheck BMP later this afternoon. Hold Nephrotoxic agents and replace Mg+. PT/OT pending any rehab placement needs. Allergies Allergy/AdvReac Type Severity Reaction Status Date / Time No Known Allergies Allergy Verified 05/12/22 11:02 Home Medications Medication Instructions Recorded Confirmed Type pediatric [id number] 1 tab PO PM ##0 04/11/13 06/14/23 History (Flintstones Complete (iron) chewable tablet) atorvastatin 40 mg tablet 40 mg PO PM #0 tabs 01/08/17 06/14/23 History cholecalciferol (vitamin D3) 25 2,000 unit PO PM 10/18/17 06/14/23 History mcg (1,000 unit) capsule (Vitamin D3) cyanocobalamin (vitamin B-12) 1,000 mcg PO PM 05/06/19 06/14/23 History 1,000 mcg tablet furosemide 20 mg tablet 20 mg PO DAILY PRN swelling 05/06/19 06/14/23 History tamsulosin 0.4 mg capsule 0.4 mg PO PM 05/06/19 06/14/23 History magnesium oxide 400 mg PO DAILY 09/26/19 06/14/23 History triamcinolone acetonide 0.1 % 1 applic topical BID PRN Rash 08/11/20 06/14/23 History topical cream acetaminophen 500 mg tablet 1,000 mg PO Q6H PRN Pain 12/17/20 06/14/23 History aspirin 81 mg tablet 81 mg PO DAILY 12/21/20 06/14/23 History warfarin 3 mg tablet 3 mg PO [id number]@1600 10/07/22 06/14/23 History warfarin 3 mg tablet 6 mg PO MO@159910/07/22 06/14/23 History cyclobenzaprine 10 mg tablet 10 mg PO Q8H PRN muscle spasm #15 10/16/22 06/14/23 Rx tabs metoprolol succinate 25 mg 25 mg PO QAM #30 tabs 10/16/22 06/14/23 Rx tablet,extended release 24 hr losartan 50 mg tablet 50 mg PO DAILY 01/18/23 06/14/23 History semaglutide 0.25 mg or 0.5 mg (2 0.25 mg subcut WK 01/18/23 06/14/23 History mg/1.5 mL) subcutaneous pen injector senna-docusate sodium tablet 1 tab PO DAILY 01/18/23 06/14/23 History Past Med/Surg History Medical History (Updated 06/14/23 @ 13:16 by OLEG Edouard) Hyperlipemia Essential hypertension 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 kidney disease Degenerative cervical spinal stenosis Degenerative lumbar spinal stenosis Proliferative diabetic retinopathy Venous insufficiency of both lower extremities Erectile dysfunction Nonalcoholic 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 (PLATT) detention current use of 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 Hyperparathyroidism, secondary renal Esophageal obstruction Complex sleep apnea syndrome Vitamin B12 deficiency Persistent proteinuria Morbid obesity Paroxysmal SVT (supraventricular tachycardia) Myocardial Infarction 2017 > medically managed Diabetic peripheral neuropathy associated with type 2 diabetes mellitus Diabetes type 2, controlled NIDDM Peripheral arterial disease 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, 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, Right great toe amputation 07/2020 with revision 08/2020 Chronic anemia CVA (cerebral vascular accident) 01/2018; residual right sided weakness Mixed sleep apnea No device (previous BIPAP) CKD (chronic kidney disease), stage III Dyslipidemia Tachy-geronimo syndrome CHF (congestive heart failure) Acute renal failure superimposed on stage 3 chronic kidney disease 08/2020 hospitalization, UTI and osteomyelitis, necrotizing fasciitis Depression Pacemaker Left, normal single chamber pacemaker function with stable pacing and sensing thresholds per pacer check 12/08/20 S Hypertension Sepsis 2013 Atrial fibrillation Surgical History History of amputation of lesser toe of right foot Hx of angioplasty Amputation toe Right great toe amputation (08/12/20): MAC at [facility] History of esophagogastroduodenoscopy (EGD) History of vascular surgery Left popliteal, EVELINE TPT/proximal CONTRACT LOADER (10/2019) Right great toe I&D, revision amputation (08/21/20): MAC at [facility] History of hand surgery Tendon transfer Gastric bypass status for obesity Family History Brother Diabetes Mother Diabetes Father Diabetes Other Cancer Hypertension Social History Smoking Status: Never smoker Tobacco Type: Cigarettes Second Hand Exposure: No; Do You Dip or Chew Tobacco: No; Hx Alcohol Use: No Hx Substance Use: No Preferred Language: Stateless 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 Ability: Effective Visual Impairment: No Limitations Hearing Ability: Normal Quality Technician Required: No Beliefs That Will Affect Care: None marital status: Current Living Situation: Alone Current Living Situation Comment: daughter lives upstairs and can provide help current occupational status: retired How many Children do You have: 2 Feels Safe at Home: Yes Diet Comment: Educated to increase protein, vitamin c, d and zinc Assistive Devices: Cane Review of Systems Review of Systems: Neuro: (-) Falls, trauma, slurred speech HEENT: (-) SEXTON, dizziness, dysphagia, visual or auditory changes CV: (-) CP, palpitations, swelling Resp: (-) SOB GI: (-) appetite changes, N/V/D, bowel changes : (-) urinary changes Skin: (-) rashes (+) redness and drainage from R posterior calf Psych: (-) anxiety, depression Physical Exam Physical Exam: Neuro: AAOx4, PERRLA, no aphagia, memory changes, CNII-XII grossly intact HEENT: head normocephalic, moist mucus membranes CV: S1/S2, (-) M/G/R, (-) edema, cap refill < 3 seconds Resp: Lungs CTA in all snider. On RA GI: Abdomen S/NT/ND, Ax4 bowel sounds, (-) CVA tenderness Musculoskeletal: 5/5 B/L UE strength, 5/5 B/L LE strength. No gait disturbance Skin: (-) rashes , (+) circumferential erythema RLE with (+) malodor and drainage from posterior calf; serous drainage. Psych: euthymic mood Results & Data Results & Data Vital Signs (Past 12 Hours) Vital Signs Temp Pulse Pulse Resp BP BP Pulse Ox 06/14/23 09:31 60 20 114/63 98 06/14/23 08:58 61 06/14/23 08:40 98 06/14/23 08:40 62 20 98 06/14/23 08:40 36.9 C 62 20 114/63 98 O2 Del Method 06/14/23 09:31 Room Air 06/14/23 08:58 06/14/23 08:40 Room Air 06/14/23 08:40 Room Air 06/14/23 08:40 Room Air Laboratory Results Short CBC 06/14/23 Range/Units 08:57 WBC 13.51 H (4.8-10.8) K/ul Hgb 10.5 L (14.0-18.0) g/dl Hct 32.1 L (42.0-52.0) % Plt Count 103 L (130-400) K/uL BMP 06/14/23 08:57 Sodium 136 Potassium 3.6 Chloride 107 Carbon Dioxide 20 L BUN 57 H Creatinine 3.16 H Glucose 105 H Calcium 7.9 L Liver Function 06/14/23 Range/Units 08:57 Total Bilirubin 1.3 H (0.2-1.0) mg/dl Direct Bilirubin 0.6 H (0-0.2) mg/dl AST 95 H (13-39) U/L ALT 59 H (7-52) U/L Alkaline Phosphatase 48 (34-104) U/L Albumin 3.3 L (3.4-5.0) gm/dl Diagnostic Findings Chest X-Ray 06/14/23 08:52 SINGLE VIEW CHEST CLINICAL HISTORY: Sepsis. FINDINGS: An AP, portable, upright chest radiograph is compared to study dated 10/10/2022. A single lead cardiac pacemaker is unchanged in position. The heart is enlarged noting atherosclerotic calcification of the thoracic aorta. The pulmonary vasculature is noncongested. Chronic interstitial thickening is similar to previous. There is bibasilar scarring/atelectasis. The lungs and pleural spaces are otherwise clear. No pneumothorax is seen. The skeletal structures are osteopenic. The bony thorax is grossly intact. Fusion hardware is noted in the cervical spine. IMPRESSION: 1. Cardiomegaly and cardiac pacemaker without radiographic evidence of congestive failure. 2. No airspace consolidation or pleural effusion is identified. ACT 112: Negative or not required by law. Electronically signed by: River Castillo M.D. 06/14/2023 9:13 AM Venous Doppler Study 06/14/23 08:52 RIGHT LOWER EXTREMITY VENOUS DOPPLER HISTORY: Right leg swelling COMPARISON STUDY: None. FINDINGS: There is normal compressibility, flow, and augmentation within the right lower extremity deep venous system. A few enlarged right inguinal lymph nodes. Dominant lymph node measures 42 x 27 x 14 mm. Subcutaneous trace edema seen within the right lower extremity. IMPRESSION: 1. No DVT within the right lower extremity. 2. Right inguinal lymphadenopathy. This could be reactive. ACT 112: Negative or not required by law. Electronically signed by: Josafat Hein M.D. 06/14/2023 10:06 AM Code Status & VTE Plan Code Status Full code in the event of cardiac respiratory arrest VTE Prophylaxis Plan VTE Prophylaxis will be ordered: Yes Supervising Physician Co-Signing Physician Notes Patient was seen and examined independently at bedside. Chart reviewed. Case discussed with Lissa DEJESUS and agree with the documentation above. In summary, this is a 72 year old who presented with right leg infection for 2 days. Has RLE erythema, tenderness and edema with seepage. Denies fever or chills but poor appetite. Does have right toe wound which is being followed at wound care center. Labs, imaging, vitals reviewed. Will admit for cellulitis with empiric zosyn/dapto pending wound clx and blood clx. Leg elevation. ID consult. Also has JORGE for which he will be on gentle IVF and nephro eval. He will need diuresis once his renal function improves. WOCN consult. INR therapeutic on coumadin, continue and follow INR for further adjustment. On exam- General: Ill looking, lying comfortably in bed, not in distress, on room air HEENT: EOMI, EVE Chest: Clear breath sounds bilaterally, no wheezes or crackles CVS: Regular rate and rhythm, normal heart sounds, no murmur Abdomen: Soft, non tender, not distended, normal bowel sounds Neuro: Awake, alert, oriented, conversing well, non focal Extremities: RLE cellulitis with significant erythema, edema, tenderness and seepage. Right toe wound noted. LLE with venous stasis changes. Rest as per the note above. (3) Diabetic ulcer of right foot Diabetes mellitus type: other specified (including ROSELINE) Diabetic foot ulcer location: unspecified part of foot Non-pressure ulcer stage: unspecified non- pressure ulcer stage Qualified Code(s): E13.621 - Other specified diabetes mellitus with foot ulcer; L97.519 - Non-pressure chronic ulcer of other part of right foot with unspecified severity
[2023-06-14] MEDS ORDERED: CEFEPIME 2,000 MG in SYRINGE 0 ML IV SCH (11:45)
[2023-06-14] MEDS ORDERED: metroNIDAZOLE 500 MG TAB PO SCH (11:45)
[2023-06-14] MEDS: VANCOMYCIN HCL 2,250 MG in SODIUM CHLORIDE 0.9% 500 ML IV ONE (11:48)
[2023-06-14 13:33] LABS: Appearance Urine Turbid (Clear); Bilirubin Urine Negative (Negative); Blood Urine 2+ (Negative); Color Urine Dark Yellow; Glucose Urine UA Negative (Negative); Ketones Urine Trace (Negative); Leukocyte Esterase Urine 2+ (Negative); Mucus Urine Present (None Prsent); Nitrite Urine Negative (Negative); Protein Urine 2+ (Negative); RBC Urine Automated 0-2 /hpf (0-2); Specific Gravity Urine 1.017 (1.000-1.030); Urobilinogen Urine Negative (Negative); WBC Urine Automated 21-50 /hpf (0-5); pH Urine 5.5 (4.5-7.5)
[2023-06-14 13:43] LABS: Granular Casts Urine Present /lpf (None Prsent)
[2023-06-14 13:44] LABS: Bacteria Urine Automated 1+ (None Seen)
[2023-06-14] MEDS: SODIUM CHLORIDE 0.9% 1,000 ML IV SCH (14:45)
[2023-06-14] MEDS: ACETAMINOPHEN 325 MG TAB PO PRN (14:53)
[2023-06-14] MEDS ORDERED: PIPERACILLIN/TAZOBACTAM 4.5 GM in DEXTROSE 5% MINI-B 100 ML IV SCH (17:00)
[2023-06-14] MEDS: PIPERACILLIN/TAZOBACTAM 4.5 GM in DEXTROSE 5% MINI-B 100 ML IV SCH (17:48)
[2023-06-14] MEDS: WARFARIN SOD 3 MG TAB PO SCH (17:48)
[2023-06-14 18:20] LABS: BUN Creatinine Ratio 19.8 (10-20); Calcium 7.7 mg/dl (8.6-10.3); Creatinine Clr Calc Pharmacy 28.3 ml/min; Est GFR (African American) 22.1 ml/min; Est GFR (Non-African American) 19.1 ml/min; Potassium 3.7 mmol/L (3.5-5.1)
[2023-06-14] MEDS: TAMSULOSIN HCL 0.4 MG CAP PO SCH (20:20)
[2023-06-14] MEDS: CHOLECALCIFEROL 25 MCG (1000 UNITS) TAB PO SCH (20:20)
[2023-06-14] MEDS: DAPTOmycin 525 MG in SYRINGE 0 ML IV SCH (20:20)
[2023-06-14] MEDS: MULTIVITAMIN CHEWABLE TAB PO SCH (20:20)
[2023-06-14] MEDS: CYANOCOBALAMIN (B-12) 500 MCG TABLET PO SCH (20:20)
[2023-06-14] MEDS ORDERED: ATORVASTATIN 40 MG TAB PO SCH (21:00)
[2023-06-14] MEDS ORDERED: VANCOMYCIN HCL 1,750 MG in SODIUM CHLORIDE 0.9% 500 ML IV SCH (21:00)
[2023-06-14] MEDS: oxyCODONE HCL IR 5 MG TAB (IMMEDIATE RELEASE) PO PRN (22:28)
[2023-06-15 07:18] LABS: Estimated Average Glucose 126 mg/dl
[2023-06-15 07:28] LABS: Albumin Globulin Ratio 1.1 (0.9-2); Albumin Level 2.8 gm/dl (3.4-5.0); BUN Creatinine Ratio 18.7 (10-20); Bilirubin,Total 1.1 mg/dl (0.2-1.0); Calcium 7.5 mg/dl (8.6-10.3); Creatinine Clr Calc Pharmacy 25.6 ml/min; Est GFR (African American) 19.8 ml/min; Est GFR (Non-African American) 17.1 ml/min; Globulin 2.5 gm/dl (2.5-4.0); Magnesium 1.7 mg/dl (1.7-2.4); Phosphorus 4.1 mg/dl (2.5-4.9); Potassium 3.9 mmol/L (3.5-5.1); Total Protein 5.3 gm/dl (6.0-8.3)
[2023-06-15 07:41] LABS: Hematocrit (blood only) 27.7 % (42.0-52.0); Hemoglobin 9.2 g/dl (14.0-18.0); Mean Corpuscular Hemoglobin 29.6 pg (25.0-34.0); Mean Corpuscular Hgb Conc 33.2 g/dL (32.0-36.0); Mean Corpuscular Volume 89.1 fL (80.0-100.0); Mean Platelet Volume 12.6 fL (9.4-12.4); Platelet Count 81 K/uL (130-400); RDW Coefficient of Variation 14.6 % (11.5-14.5); RDW Standard Deviation 46.9 fL (36.4-46.3); Red Blood Count 3.11 M/uL (4.70-6.10)
[2023-06-15] MEDS: DOCUSATE SODIUM/SENNA 50/8.6MG TAB PO SCH (08:05)
[2023-06-15] MEDS: METOPROLOL SUCC 25MG EXT REL TAB PO SCH (08:05)
[2023-06-15] MEDS: ASPIRIN 81 MG ECTAB PO SCH (08:05)
--- OUTSIDE RECORDS SUMMARY | 2023-06-15 08:52 | External Medical Summary | Summary of Care ---
Author Name Unknown Organization [facility] Address [address] [facility] [place] [address] Phone [phone] Care Team Providers Care Burling And Joining Supervisor Name Role Phone Jocelyne Desai DO Primary Care Provider + [phone] Encounter Details Date Type Department Care Team (Late st Contact Info) Description 06/13/2023 Population Health External Data Unspecified Department Allergies No known active allergiesdocumented as of this encounter (statuses as of 06/13/2023) Medications Medication Sig Dispensed Refills Start Date End Date Status ACETAMINOPHEN 500 MG PO TABS 2 tabs every 6 hours as needed for discomfort 0 11/01/2013 Active Cyanocobalamin (VITAMIN B-12) 1000 MCG Tablet Take 1 Tablet by mouth every evening. 0 11/22/2017 Active Cholecalciferol (VITAMIN D3) 50 MCG (2000 UT) Capsule Take 1 Capsule by mouth every evening. 0 01/22/2019 Active Flintstones w/Iron 18 MG Oral Tablet Chewable Take by mouth 1 Tablet every evening . 0 04/07/2020 Active Magnesium Oxide 400 MG Oral Capsule Take 1 Cap by mouth 2 times a day. 200 Cap 5 10/16/2020 Active Additional Information Patient taking differently:400 mg OralDaily(AM), Reported on 01/10/2023 Aspirin 81 MG Oral Tablet Delayed Release Take 1 Tablet by mouth every evening. 0 Active Tamsulosin HCl 0.4 MG Oral Capsule (Flomax) TAKE 1 CAPSULE BY MOUTH IN THE MORNING 100 Capsule 3 08/23/2022 Active Vitron-C 65-125 MG Oral Tablet (Iron-Vitamin C 65-125 mg per tab) Take 1 Tablet by mouth every evening. 100 Tablet 3 10/20/2022 Active Metoprolol Succinate ER 25 MG Oral Tablet Extended Release 24 Hour (toPROL XL) Take 1 Tablet by mouth in the morning. 100 Tablet 3 11/08/2022 Active Warfarin Sodium 3 MG Oral Tablet (Coumadin)Indicati ons:Chronic atrial fibrillation (HCC) TAKE 1 TO 2 TABLETS BY MOUTH DAILY, DIRECTED BY [facility] 180 Tablet 3 02/04/2023 02/04/2024 Active Furosemide 20 MG Oral Tablet (Lasix)Indications :Stage 3 chronic kidney disease, unspecified whether stage 3a or 3b CKD (HCC),Persistent proteinuria TAKE ONE TABLET BY MOUTH EVERY DAY NEEDED FOR SWELLING 100 Tablet 1 02/13/2023 02/13/2024 Active Losartan Potassium 25 MG Oral Tablet (Cozaar) Take 1 Tablet by mouth in the morning. 100 Tablet 1 03/06/2023 Active Atorvastatin Calcium 40 MG Oral Tablet (Lipitor) TAKE ONE TABLET BY MOUTH EVERY DAY 100 Tablet 2 03/06/2023 Active Ozempic (0.25 or 0.5 MG/DOSE) 2 MG/3ML Solution Pen-injector (Semaglutide(0.25 or 0.5MG/DOS)) Inject 0.5 mg under the skin once a week 9 mL 1 04/20/2023 Active documented as of this encounter (statuses as of 06/13/2023) Active Problems Patient Care Coordination No te Formatting of this note migh t be different from the original. Good connectivity [facility] [phone] Televideo if needed. Problem Noted Date Diagnosed Date History of GA (myocardial infarction) 11/09/2021 Trigger ring finger of left hand 11/09/2021 Overview: Also middle finger Diabetic ulcer of toe of rig ht foot associated with type 2 diabetes mellitus, limited to breakdown of skin 07/13/2021 Last Assessment & Plan: Ulcer appears overall improved. He has significant history DM and PVD and recommended he still follow up with podiatry,. Letter in chart from [facility] podiatry they were unable to get in touch with him. Given phone number to call and make appt. He stated he is willing to do this. 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, without long-term current use of insulin 05/05/2021 Chronic kidney disease, stage 3b 05/05/2021 S/P angioplasty with stent 10/16/2020 Overview: Right anterior tibial artery - 3 drug eluting stents Esophageal obstruction 07/28/2020 Hypertensive heart and kidne y disease with chronic diastolic congestive heart failure and stage 3b chronic kidney disease 06/23/2020 Overview: Per CKD protocol PAD (peripheral artery disease) 04/14/2020 Hyperparathyroidism, secondary renal 04/14/2020 Diabetes mellitus due to und erlying condition with severe nonproliferative diabetic retinopathy with macular edema, unspecified eye 04/14/2020 Sleep apnea treated with nocturnal BiPAP 020 Type 2 diabetes mellitus wit h stage 3b chronic kidney disease, with long-term current use of insulin 05/17/2019 Complex sleep apnea syndrome 12/05/2018 Nocturnal hypoxemia 12/05/2018 Persistent proteinuria 11/27/2018 H/O gastric bypass 11/27/2018 Overview: [facility] group home current use of 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 1 Status post amputation of lesser toe of right fo ot 11/14/2018 Type 2 diabetes, controlled, with peripheral iker ropathy 11/14/2018 Last Assessment & Plan: DM is controlled on jardiance. Type 2 diabetes mellitus with peripheral vascula r disease 11/14/2018 Last Assessment & Plan: Continue atorvastatin and asa. Followed by vascular in the past. Cerebrovascular disease, arteriosclerotic, post- stroke 03/02/2018 Vitamin B12 deficiency 12/21/2015 Chronic atrial fibrillation 01/12/2015 Peripheral sensory neuropathy 01/12/2015 Microalbuminuric diabetic nephropathy 06/03/2014 Venous insufficiency of both lower extremities 0 06/17/2013 Cardiac pacemaker in situ 04/24/2013 Paroxysmal SVT (supraventricular tachycardia) DM neuropathy, type II diabetes mellitus 013 Erectile dysfunction 03/29/2011 DYSLIPIDEMIA, GOAL LDL BELOW 100 01/20/2009 Overview: Per Lipid Taxonomy. HTN, goal below 140/90 12/19/2008 Overview: Modified per HTN Taxonomy. Type 2 diabetes mellitus wit h hemoglobin A1c goal of less than 7.5% 12/11/2008 Overview: Per Diabetes Taxonomy. ICD-10 update of inactive term PLATT RESEARCH OTHER*[id number] 02/20/2007 ADVANCE DIRECTIVE INFORMATION 01/19/2005 Overview: Yes, Patient instructed to provide copy of advance directive for provider to review and to be scanned into Electronic Medical Record No, Advance Directive brochure given to patient at prior appointment. SPINAL STENOSIS-LUMBAR 09/23/2002 Vitamin D deficiency Cervical spinal stenosis documented as of this encounter (statuses as of 06/13/2023) Resolved Problems Problem Noted Date Diagnosed Date Resolved Date Depression, unspecified 11/09/2021/ Depression, unspecified 11/09/202105/2022 Cellulitis of right leg 07/13/202105/2022 Last Assessment & Plan: Suspect this could be early/localized. Will treat with 7 days antibiotic. If pt cannot be reassess by Dr. Braxton office early next week will need [facility] provider recheck Multiple and open wound of l ower limb, left, subsequent encounter 07/13/2021 11/16/2022 Last Assessment & Plan: Advised to not use tape directly on skin--secure dressings with jose wrap and tape the jose wrap. Continue to cleanse daily with soap and water and apply aqua-jaja AG, telfa and wrap. Concern for possible early cellulitis, will start 7 day course keflex Chronic kidney disease, stage 3b 06/23/2020 10/26/2020 Overview: Per CKD protocol Morbid (severe) obesity due to excess calories 04/14/2020 11/09/2021 Chronic kidney disease, stage 3 unspecified 04/14/2020 06/25/2020 Overview: Per CKD protocol Stage 3a chronic kidney disease 12/23/2019 03/26/2020 Overview: Per CKD protocol Hypertensive heart and kidne y disease with chronic diastolic congestive heart failure and stage 3a chronic kidney disease 12/23/201906/13 Overview: Per CKD protocol Hypertensive heart and kidne y disease with chronic diastolic congestive heart failure and stage 3 chronic kidney disease 06/04/201912/25 Overview: Per CKD protocol Non-pressure chronic ulcer o f other part of left foot with unspecified severity 05/31/201905/2022 CSA (central sleep apnea) 12/05/[address] 03/02/201811/13 Kidney disease, chronic, sta ge III (GFR 30-59 ml/min) 11/22/2017 12/26/2019 Overview: Per CKD protocol Body mass index (BMI) of 40. 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 Diabetic foot ulcer 04/27/2011 11/09/19 12 Severe obesity with body mas s index (BMI) of 35.0 to 39.9 with serious comorbidity 07/27/2009 Overview: Per Obesity Protocol, #19 ICD-10 update of inactive diagnosis HTN, goal below 130/80 12/30/200810/05 DM TYPE 2 CAUSING RENAL DZ 12/11/2008 1 03/14/2014 Overview: Per Diabetes Taxonomy. Cervical spondylosis with myelopathy 08/01/2008 08/31/2016 HTN, goal below 140/90 01/22/200812/19 Overview: Modified per HTN Taxonomy. Abdominal pain, left upper quadrant 01/21/2008 08/26/2008 Esophageal stricture 01/21/2008 009 Perforation of esophagus 01/21/2008 Overview: PERFORATED ESOPHAGUS Type 2 diabetes mellitus wit h hemoglobin A1c goal of less than 7.0% 12/14/2007 12/11/2008 Overview: Per Diabetes Taxonomy. ICD-10 update of inactive term Examination following surgery 09/20/2007 08/26/2008 Dyslipidemia, goal LDL below 160 06/12/2006 10/13/2006 Mixed dyslipidemia 12/24/2005 9 Overview: Per Lipid Taxonomy. DIAB RENAL MANIF ADULT 04/20/200512/11 Overview: Per Diabetes Taxonomy. Atrial fibrillation 04/20/2005 01/13/20 15 PLANTAR FIBROMATOSIS 04/20/2005 008 LOC PRIM OSTEOARTH-ANKLE 04/20/2005 Severe nonproliferative diab etic retinopathy associated with type 2 diabetes mellitus 03/09/2005 05/05/2021 Venous insufficiency 11/13/2004 022 Edema 11/13/2004 05/09/2007 Other hammer toe (acquired) 11/13/2004 10/05/2007 Morbid obesity, BMI not known 07/10/2003 08/26/2008 LUMB-LUMBOSAC DISC DEGEN 02/27/200305/2022 THORACIC DISC DEGEN 02/27/2003 11/17/19 23 LUMBAGO 12/24/2002 05/09/2007 LOC PRIM [id number] 12/24/200208/13 DEGENERATIVE SKIN DISORD 12/24/2002 VERTEBRAL FX NOS-CLOSED 12/24/200209/14 RUPT FLEXOR TENDON HAND 12/24/200204/14 DM type 2, not at goal 09/23/200212/13 Major depressive disorder 09/23/2002 Overview: ICD-10 update of inactive term Kidney disease, chronic, sta ge I (GFR over 89 ml/min) 11/22/2017 Displacement of cervical int ervertebral disc without myelopathy 08/31/2016 Other B-complex deficiencies 11/22/2017 Toe osteomyelitis, right Amputated toe 11/14/2018 documented as of this encounter (statuses as of 06/13/2023) Immunizations Name Administration Dates Next Due COVID-19 mRNA, LNP-s, No Pre serve, 2-Dose Series (Moderna) 03/19/2020 COVID-19 mRNA, LNP-s, No Pre serve, 2-Dose Series (Pfizer) 02/16/2021,04/09/2020,03/19/2020 COVID-19, MRNA-LNP, 23-24, P F, 30 MCG/0.3 mL, 12 YRS AND ABOVE, IM (PFIZER-Comirnat) 11/16/2022 Covid-19, Mrna, Lnp-s, Pf, B ivalent, 30 Mcg, IM, 12 yrs and above (Pfizer) 11/16/2021 Diptheria/Tetanus (Adult) 12/01/2018 Hepatitis B, 20+ yrs 11/11/2002,06/10/2002,05/13 Pneumococcal Conjugate Vacc, 13 Valent (Prevnar) 11/01/2017 Pneumococcal Polysaccharide PPV23 (Pneumovax) 11/27/2018,09/28/2005 Season Influenza, Quad, PF, Adjuvanted, 65+ Yrs, IM (FLUAD) 10/22/2019 Seasonal Influenza, PF, 6 M & above, IM , (FluLaval or Fluzone) 11/01/2017,11/22/2016 11/22/2017 Seasonal Influenza, Quadriva lent Hd (Fluzone Hd) 11/16/2022,11/09/2021,10/16/2020 Seasonal Influenza, Quadriva lent, No Preserve, IM 12/21/2015,12/25/2014 Seasonal Influenza, Split, I IV3, With Preserve, Inj 01/28/2014,11/05/2012,11/09/2011,11/13,12/05/2008,12/26/2007 Seasonal Influenza, Trivalen t, Adjuvanted, 65+ yrs 11/27/2018 TDAP (age 11 and older)(Adacel) 10/11/2007 Zoster Vaccine Recombinant (Shingrix) 01/08/2019 ,10/04/2018 documented as of this encounter Social History Tobacco Use Types Packs/Day Years Used Date Smoking Tobacco: Never Smokeless Tobacco: Never Alcohol Use Standard Drinks/Week Comments Yes 0 (1 standard drink = 0.6 oz pure alcohol) rare beer or wine in the summer PHQ-2 Answer Date Recorded PHQ Adult Total Score 1 02/16/2023 Hunger Vital Sign Answer Date Recorded Within the past 12 months, y ou worried that your food would run out before you got the money to buy more. Never true 02/16/19 24 Within the past 12 months, t he food you bought just didn't last and you didn't have money to get more. Never true 02/16/2023 Sex and Gender Information Value Date Recorded Sex Assigned at Male 02/08/2021 1:51 PM EST Gender Identity Male 02/08/2021 1:51 PM EST Sexual Orientation Straight 02/08/2021 1: 51 PM EST Job Start Date Occupation Industry Not on file Not on file Not on file documented as of this encounter Plan of Treatment Upcoming Encounters Date Type Department Care Team (Late st Contact Info) Description 06/21/2023 6:30 AM EDT Anticoagulation Pharmacy Call Center [phone] [facility] [place] [phone] [facility] [phone] [facility] [place] [phone] 11/20/2023 2:00 PM EDT Office Visit Nephrology [address] [place] [address] Marycarmen Kowalski PA-C [address] [place] [address] 02/20/2024 12:30 PM EST Nurse Only Ancillary [place] [address] [place] [address] [place], Nurse [address] [place] [address] Scheduled Procedures Name Priority Associated Diagnoses Date/Ti me COLONOSCOPY FLEXIBLE PROXIMA L DIAGNOSTIC Recall Screening for colon cancer Health Maintenance Due Date Last Done Comments Cologuard 1997 Sigmoidoscopy 1997 Fecal Occult Blood Test 09/02/2009 09/02/2008, 05/04 Diabetic Eye Exam 12/30/2022 12/30/2021, , 12/28/2021, Additional history exists HbA1c 05/18/2023 11/16/2022, 10/15, 05/13/2022, Additional history exists GFR 08/24/2023 02/23/2023, 1206/2022, 11/16/2022, Additional history exists Albumin/Creatinine Ratio 11/17/2023 023, 05/13/2022, 09/29/2021, Additional history exists CKD PHOS USE SMARTSET 22378 11/17/2023 10/0 05/2022, 09/29/2021, 05/12/2021, Additional history exists Diabetic Foot Exam 11/17/2023 11/16/2022, 0 05/05/2021, 11/22/2017, Additional history exists CKD HGB USE SMARTSET 20675 01/18/202401/17, 01/17/2023, 11/16/2022, Additional history exists Depression Screening 02/17/2024 02/16/2023 DTaP,Tdap,and Td Vaccines (3 - Td or Tdap) 12/01/2028 12/01/2018, 10/11/2007 Colonoscopy 09/09/2031 09/08/2021, 08/14, 09/23/2010 Colorectal Cancer Screening 09/09/2031 Hepatitis B Completed 11/11/2002, 05/15, 05/13/2002 Pneumococcal Vaccine: 65+ Years Completed 11/27/2018, 11/01/2017, 09/28/2005 Zoster Vaccines Completed 01/08/2019, 10/04/2018 COVID-19 Vaccine Completed 11/16/2022, 05/2021, 02/16/2021, Additional history exists Influenza Vaccine (FLU shot) Completed 05/2022, 11/09/2021, 10/16/2020, Additional history exists GARDASIL-HPV IMMUNIZATION SERIES Aged Out No longer eligible based on patient's age to complete this topic MENINGOCOCCAL (MENACTRA/MENVEO) Aged Out No longer eligible based on patient's age to complete this topic documented as of this encounter Medical Devices Implanted Type Area Financial Sales Assistant Device Identifier Shelf Expiration Date Model / Serial / Lot Shaft Fibula 6cm [id number] - [id number] Implanted:Qty: 1 on 09/05/2008 [place] [facility] [place] - Human N/A: Spine Cervical MUSCULOSKELETAL TRANSPLANT FND 04/20/2010 [id number] / [id number] / Stent Eso Gw 22x70 [id number] - [id number] Implanted:Qty: 1 on 01/21/2008 at [place] [facility] [place] N/A: Esophagus [employer] 04/12/2009 [id number] / / [id number] Depuy Uniplate 32 Implanted:Qty: 1 on 09/05/2008 at [place] [facility] [place] N/A: Spine Cervical TAMMY [employer] TAMMY DEPUY [id number] / / Depuy Uniplate Screw 14mm Implanted:Qty: 2 on 09/05/2008 at [place] [facility] [place] N/A: Spine Cervical [employer] DEPUY 1897-06-017 / / Depuy Lordotic [place] Cage Implanted:Qty: 1 on 05/07/2010 at [place] [facility] [place] N/A: Neck [id number] / [id number] / Plate Zach 3 Level Ti 54mm - [id number] Implanted:Qty: 1 on 05/07/2010 at [place] [facility] [place] N/A: Neck JNJ : DEPUY SPINE [id number] / / Screw Zach Const St Ti 14mm - [id number] Implanted:Qty: 4 on 05/07/2010 at [place] [facility] [place] N/A: Neck JNJ : DEPUY SPINE [id number] / / Screw 3.5x14 Mntr Fa [id number] - [id number] Implanted:Qty: 8 on 05/07/2010 at [place] [facility] [place] N/A: Spine Cervical JNJ : [employer] [id number] / / Jarrell 3.3v834st [id number] - [id number] Implanted:Qty: 1 on 05/07/2010 at [place] [facility] [place] N/A: Spine Cervical JNJ : [employer] [id number] / / Screw Inner Mntr [id number] - [id number] Implanted:Qty: 8 on 05/07/2010 at [place] [facility] [place] N/A: Spine Cervical JNJ : [employer] [id number] / / Envista Intraocular Lens Implanted:Qty: 1 on 03/10/2022 by Liang Marshall MD at OR [facility] Right: Eye [employer]USCH [employer] LOMB 08/13/2023 [id number] / [id number] / [id number] Envista Intraocular Lens Implanted:Qty: 1 on 03/24/2022 by Liang Marshall MD at OR [facility] Left: Eye [employer] LOMB 07/13/2024 [id number] / [id number] / [id number] documented as of this encounter Advance Directives Documents on File Type Date Recorded 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 Question Answer Comments Discussion of Advance Directives occurred with: Patient Does the patient have a Living Will? No Does the patient have Health Care Power of Soccer Ball Assembler? No Code Status History Code Status Date Activated Date Inactivated Comments No Code 03/10/2022 7:41 AM 03/10/2022 2:02 PM This order reflects the patients wishes and were consensually agreed upon. Question Answer Comments Discussion of Advance Directives occurred with: Patient Does the patient have a Living Will? No Does the patient have Health Care Power of Soccer Ball Assembler? No Full Code 05/07/2010 8:55 AM 05/11/2010 9:01 PM This order reflects the patients wishes and were consensually agreed upon. Question Answer Comments Discussion of Advance Directives occurred with: Patient Does the patient have a Living Will? No Does the patient have Health Care Power of Soccer Ball Assembler? No Full Code 05/07/2010 6:07 AM 05/07/2010 8:55 AM This order reflects the patients wishes and were consensually agreed upon. Question Answer Comments Discussion of Advance Directives occurred with: Patient Full Code 09/05/2008 6:00 PM 09/09/2008 6:18 PM This order reflects the patients wishes and were consensually agreed upon. Question Answer Comments Discussion of Advance Directives occurred with: Not Discussed Does the patient have a Living Will? No Does the patient have Health Care Power of Soccer Ball Assembler? No Care Teams Burling And Joining Supervisor Relationship Specialty Start Date End Date Jocelyne Desai DO [address] [place] [address] [place] [id number] PCP - General Internal Medicine 11/09/16 documented as of this encounter
--- OUTSIDE RECORDS SUMMARY | 2023-06-15 08:53 | External Medical Summary | Summary of Care ---
Author Name Unknown Organization [facility] Address [address] [facility] [place] [address] Phone [phone] Care Team Providers Care Optical Laboratory Mechanic Name Role Phone DesaiElissaJocelynejohn Briggs Primary Care Provider [phone] Encounter Details Date Type Department Care Team (Late st Contact Info) Description 06/09/2023 Result Scan Unspecified Department Estefania Palacios, [facility] [address] [place] [address] <No scans attached> Allergies No known active allergiesdocumented as of this encounter (statuses as of 06/12/2023) Medications Medication Sig Dispensed Refills Start Date [...] as of this encounter (statuses as of 06/12/2023) Active Problems Patient Care Coordination No te Formatting of this note migh t be different from the original. Good connectivity [facility] for wound care [phone] Televideo if needed. 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 He has significant history DM and PVD and recommended he still follow up with podiatry,. Letter in chart from [facility] podiatry they were unable to get in [...] 11/27/2018 H/O gastric bypass 11/27/2018 Overview: RYGB residential current use of 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 1 Status [...] ICD-10 update of inactive term PLATT RESEARCH OTHER*[id number] 02/20/2007 ADVANCE DIRECTIVE INFORMATION 01/19/2005 Overview: Yes, Patient instructed to provide copy of advance directive for provider to review and to be scanned into Electronic Medical Record No, Advance Directive brochure given to patient at prior appointment. SPINAL STENOSIS-LUMBAR 09/23/2002 Vitamin D deficiency Cervical spinal stenosis documented as of this encounter (statuses as of 06/12/2023) Resolved Problems Problem Noted Date Diagnosed Date Resolved Date Depression, unspecified 11/09/2021/ Depression, unspecified 11/09/202105/2022 Cellulitis of right leg 07/13/202105/2022 Last Assessment & Plan: Suspect this could be early/localized. Will treat with 7 days antibiotic. If pt cannot be reassess by Dr. Braxton office early next week will need [facility] provider recheck Multiple and open wound [...] below 160 06/12/2006 10/13/2006 Mixed dyslipidemia 12/24/2005 12 9 Overview: Per Lipid Taxonomy. DIAB RENAL [...] 11/17/19 23 LUMBAGO 12/24/2002 05/09/2007 LOC PRIM [id number] 12/24/200208/13 DEGENERATIVE SKIN DISORD 12/24/2002 VERTEBRAL FX [...] as of this encounter (statuses as of 06/12/2023) Immunizations Name Administration Dates Next Due COVID-19 mRNA, LNP-s, No Pre serve, 2-Dose Series (Moderna) 03/19/2020 COVID-19 mRNA, LNP-s, No Pre serve, 2-Dose Series (Pfizer) 02/16/2021,04/09/2020,03/19/2020 COVID-19, MRNA-LNP, 23-24, P F, 30 MCG/0.3 mL, 12 YRS AND ABOVE, IM [facility] 11/16/2022 Covid-19, Mrna, Lnp-s, Pf, B ivalent, [...] Care Team (Late st Contact Info) Description 11/20/2023 2:00 PM EDT Office Visit Nephrology [address] [place] [address] Marycarmen Kowalski PA-C [address] [place] [address] 02/20/2024 12:30 PM EST Nurse Only Ancillary [place] [place] [address] [place], Nurse [address] [place] [address] Scheduled Procedures Name Priority Associated Diagnoses Date/Ti [...] Additional history exists CKD PHOS USE SMARTSET 70960 11/17/202305/2022, 09/29/2021, 05/12/2021, Additional history exists Diabetic Foot Exam 11/17/2023 11/16/2022, 0 05/05/2021, 11/22/2017, Additional history exists CKD HGB USE SMARTSET 99410 01/18/202401/17, 01/17/2023, 11/16/2022, Additional history exists Depression [...] this encounter Medical Devices Implanted Type Area Counselor/Art Therapist Device Identifier Shelf Expiration Date Model / Serial / Lot Shaft Fibula 6cm [id number] - [id number] Implanted:Qty: 1 on 09/05/2008 [place] [facility] [place] - Human N/A: Spine Cervical MUSCULOSKELETAL TRANSPLANT FND 04/20/2010 [id number] / [id number] / Stent Eso Gw 22x70 [id number] - [id number] Implanted:Qty: 1 on 01/21/2008 at [place] [facility] [place] N/A: Esophagus [employer] 04/12/2009 [id number] / / [id number] Depuy Uniplate 32 Implanted:Qty: 1 on 09/05/2008 at [place] [facility] [place] N/A: Spine Cervical TAMMY & TAMMY DEPUY 1897-02-302 / / Depuy Uniplate Screw 14mm Implanted:Qty: 2 on 09/05/2008 at [place] [facility] [place] N/A: Spine Cervical TAMMY & TAMMY DEPUY 7--017 / / Depuy Lordotic Bengal Cage Implanted:Qty: 1 on 05/07/2010 at [place] [facility] [place] N/A: Neck 1773-06-146 / 1773-06-146 / Plate Zach 3 Level Ti 54mm - [id number] Implanted:Qty: 1 on 05/07/2010 at [place] [facility] [place] N/A: Neck JNJ : DEPUY SPINE [id number] / / Screw Zach Const St Ti 14mm - [id number] Implanted:Qty: 4 on 05/07/2010 at [place] [facility] [place] N/A: Neck JNJ : DEPUY SPINE [id number] / / Screw 3.5x14 Mntr Fa [id number] - [id number] Implanted:Qty: 8 on 05/07/2010 at [place] [facility] [place] N/A: Spine Cervical JNJ : ETHICON CARDIOVATIONS [id number] / / Jarrell [id number] - [id number] Implanted:Qty: 1 on 05/07/2010 at [place] [facility] [place] N/A: Spine Cervical JNJ : ETHICON CARDIOVATIONS [id number] / / Screw Inner Mntr [id number] - [id number] Implanted:Qty: 8 on 05/07/2010 at [place] [facility] [place] N/A: Spine Cervical JNJ : ETHICON CARDIOVATIONS [id number] / / Envista Intraocular Lens Implanted:Qty: 1 on 03/10/2022 by Liang Marshall MD at OR [facility] Right: Eye BAUSCH & LOMB 08/13/2023 [id number] / [id number] / [id number] Envista Intraocular Lens Implanted:Qty: 1 on 03/24/2022 by Liang Marshall MD at OR [facility] Left: Eye BAUSCH & LOMB 07/13/2024 [id number] / [id number] / [id number] documented as of this encounter Procedures Procedure Name Priority Date/Time Associated Diagnosis Comments OUTSIDE LAB RESULTS 06/09/2023 documented in this encounter Results * OUTSIDE LAB RESULTS (06/09/2023) 06/09/2023 Estefania Palacios [facility] LABORATORY documented in this encounter Advance Directives Documents on File Type Date Recorded Patient Heat Treat Worker Expl anation POLST 01/26/2021 [place] DERS FOR LIFE-SUSTAINING TREATMENT Latest Code Status on File Code Status Date Activated Date Inactivated Comments No Code 03/24/2022 7:56 AM 03/24/2022 1:57 PM This or wendy reflects the patients wishes and were consensually agreed upon. Question Answer Comments Discussion of Advance Directives occurred with: Patient Does the patient have a Living Will? No Does the patient have Health Care Power of Toddler Lead Teacher? No Code Status History Code Status Date Activated Date Inactivated Comments No Code 03/10/2022 7:41 AM 03/10/2022 2:02 PM This order reflects the patients wishes and were consensually agreed upon. Question Answer Comments Discussion of Advance Directives occurred with: Patient Does the patient have a Living Will? No Does the patient have Health Care Power of Toddler Lead Teacher? No Full Code 05/07/2010 8:55 AM 05/11/2010 9:01 PM This order reflects the patients wishes and were consensually agreed upon. Question Answer Comments Discussion of Advance Directives occurred with: Patient Does the patient have a Living Will? No Does the patient have Health Care Power of Toddler Lead Teacher? No Full Code 05/07/2010 6:07 AM 05/07/2010 [...] the patient have Health Care Power of Toddler Lead Teacher? No Care Teams Optical Laboratory Mechanic Relationship Specialty Start Date End Date Jocelyne Desai DO [address] [place] [address] [place] [address] PCP - General Internal Medicine 11/09/16 documented as of this encounter
--- OUTSIDE RECORDS SUMMARY | 2023-06-15 08:53 | External Medical Summary | Summary of Care ---
Author Name Unknown Organization [facility] Address [address] [facility] [place] [address] Phone [phone] Care Team Providers Care Purchasing And Claims Supervisor Name Role Phone DesaiElissaJocelyne Briggs DO Primary Care Provider + [phone] Reason for Visit * Reason Comments Dosage Adjustment Via Phone (anticoag Cl inic) Encounter Details Date Type Department Care Team (Latest Contact Info) Description 06/12/2023 6:30 AM EDT Anticoagulation Pharmacy Call Center [phone] [facility] [place] [address] [facility] [address] [place] [address] Chronic atrial fibrillation (HCC)* Allergies No known active allergiesdocumented as of [...] be different from the original. Good connectivity [facility] for wound care [phone] Televideo if needed. 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 He has significant history DM and PVD and recommended he still follow up with podiatry,. Letter in chart from 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 Will treat with 7 days antibiotic. If pt cannot be reassess by Dr. Braxton office early next week will need [facility] provider recheck Multiple and open wound of [...] 11/17/19 23 LUMBAGO 12/24/2002 05/09/2007 LOC PRIM [id number] 12/24/200208/13 DEGENERATIVE SKIN DISORD 12/24/2002 VERTEBRAL FX [...] MCG/0.3 mL, 12 YRS AND ABOVE, IM (PFIZER-Comirnaty) 11/16/2022 Covid-19, Mrna, Lnp-s, Pf, B ivalent, [...] on file documented as of this encounter Progress Notes * Janice Shaw, dropper tank storage - 06/12/2023 10:02 AM EDT Contacts Type Contact Phone/Fax 06/12/2023 07:38 AM EDT Phone (Outgoing) 06/12/2023 10:00 AM EDT Phone (Outgoing) Lg Cooley "Akshat" (Self) [phone] (H) Spoke to Patient Subjective Patient Findings Negatives: Signs/symptoms of bleeding, Change in health, Change in activity, Upcoming invasive procedure, Missed doses, Extra doses, Change in medications, Change in diet/appetite, Bruising Advised patient to contact Anticoagulation Clinic if any unusual bruising or bleeding, recent illness, changes in medication, or questions/concerns. PT/INR results, Coumadin dose instructions, and next PT/INR date communicated as noted by Pharmacist: Yes JANICE SHAW dropper tank storage 06/12/2023, 10:02 AM * Estefania Palacios RPh - 06/12/2023 8:59 AM EDT Images from the original note were not included. Coumadin Clinic (region specific) Objective Current Warfarin Dose As of 06/12/2023 Warfarin maintenance plan: 1.5 mg (3 mg x 0.5) every Mon, Wed, Fri; 3 mg (3 mg x 1) all other days INR Result As of 06/12/2023 INR goal: 2.0-3.0 INR used for dosin.35 (06/09/2023) Assessment & Plan Warfarin Plan As of 06/12/2023 Full warfarin instructions: 06/11: Hold; Otherwise 3 mg every Mon, Mon, Mon; 1.5 mg all other days Next INR check: 06/20/2023 Repeat PT/INR in 1.5 week(s) Weekly dose: decreased Additional Dosing Information: Description [facility] Nurses; fax - [phone] ([facility]) Tech to contact patient with dose instructions as noted. Estefania Palacios RPh 06/12/2023, 8:59 AM * Madai Perera dropper tank storage - 06/12/2023 7:39 AM EDT Patient Phone Numbers Received fax from [facility] for today's results of INR= 3.35 Thank you, Madai Perera Emergency 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s Dispatcher [facility] ([facility]) (Formerly Telepharmacy) 06/12/2023, 7:39 AM. documented in this encounter Plan of Treatment Upcoming Encounters Date Type Department Care Team (Late st Contact Info) Description 11/20/2023 2:00 PM EDT Office Visit Nephrology [address] [place] [address] ZemaMarycarmen lindsey PA-C [address] [place] [address] 02/20/2024 12:30 PM EST Nurse Only Ancillary [address] [place] [address] [place], Nurse Annual [address] [place] [address] Scheduled Procedures Name Priority Associated Diagnoses Date/Ti me COLONOSCOPY FLEXIBLE PROXIMA L DIAGNOSTIC Recall Screening for colon cancer Health Maintenance Due Date Last Done Comments Cologuard 1997 Sigmoidoscopy 1997 Fecal Occult Blood Test 09/02/2009 09/02/2008, 05/04 Diabetic Eye Exam 12/30/2022 12/30/2021, , 12/28/2021, Additional history exists HbA1c 05/18/2023 11/16/2022, 10/15, 05/13/2022, Additional history exists GFR 08/24/2023 02/23/2023, 12/0 06/2022, 11/16/2022, Additional history exists Albumin/Creatinine Ratio 11/17/2023 023, 05/13/2022, 09/29/2021, Additional history exists CKD PHOS USE SMARTSET 91591 11/17/2023 10/0 05/2022, 09/29/2021, 05/12/2021, Additional history exists Diabetic Foot Exam 11/17/2023 11/16/2022, 0 05/05/2021, 11/22/2017, Additional history exists CKD HGB USE SMARTSET 07681 01/18/202401/17, 01/17/2023, 11/16/2022, Additional history exists Depression [...] this encounter Medical Devices Implanted Type Area Electric Deicer Inspector Device Identifier Shelf Expiration Date Model / Serial / Lot Shaft Fibula 6cm [id number] - [id number] Implanted:Qty: 1 on 09/05/[address] [facility] [place] Tissue - Human N/A: Spine Cervical MUSCULOSKELETAL TRANSPLANT FND 04/20/2010 [id number] / [id number] / Stent Eso Gw 22x70 [id number] - [id number] Implanted:Qty: 1 on 01/21/[address] [facility] [place] N/A: Esophagus ALVE[employer]US INC 04/12/2009 61628-974 / / [id number] Depuy Uniplate 32 Implanted:Qty: 1 on 09/05/[address] [facility] [place] N/A: Spine Cervical TAMMY & TAMMY DEPUY 302 / / Depuy Uniplate Screw 14mm Implanted:Qty: 2 on 09/05/[address] [facility] [place] N/A: Spine Cervical TAMMY & TAMMY DEPUY 189--017 / / Depuy Lordotic Bengal Cage Implanted:Qty: 1 on 05/07/[address] [facility] [place] N/A: Neck 1773--146 / [id number] / Plate Zach 3 Level Ti 54mm - [id number] Implanted:Qty: 1 on 05/07/[address] [facility] [place] N/A: Neck JNJ : DEPUY SPINE [id number] / / Screw Zach Const St Ti 14mm - [id number] Implanted:Qty: 4 on 05/07/[address] [facility] [place] N/A: Neck JNJ : DEPUY SPINE [id number] / / Screw 3.5x14 Mntr Fa [id number] - [id number] Implanted:Qty: 8 on 05/07/[address] [facility] [place] N/A: Spine Cervical JNJ : ETHICON CARDIOVATIONS [id number] / / Jarrell [id number] - [id number] Implanted:Qty: 1 on 05/07/[address] [facility] [place] N/A: Spine Cervical JNJ : ETHICON CARDIOVATIONS [id number] / / Screw Inner Mntr [id number] - [id number] Implanted:Qty: 8 on 05/07/[address] [facility] [place] N/A: Spine Cervical JNJ : ETHICON CARDIOVATIONS [id number] / / Envista Intraocular Lens Implanted:Qty: 1 on 03/10/2022 by Liang Marshall MD at OR [facility] Right: Eye BAUSCH & LOMB 08/13/2023 [id number] / [id number] / [id number] Envista Intraocular Lens Implanted:Qty: 1 on 03/24/2022 by Liang Marshall MD at OR [facility] Left: Eye BAUSCH & LOMB 07/13/2024 [id number] / [id number] / [id number] documented as of this encounter Procedures Procedure Name Priority Date/Time Associated Diagnosis Comments OUTSIDE LAB-PT/INR Routine 06/09/2023 documented in this encounter Results * OUTSIDE LAB-PT/INR (06/09/2023) INR-OUTSIDE LAB 3.35 06/09/2023 History Per Patient LABORATORY documented in this encounter Visit Diagnoses Diagnosis Chronic atrial fibrillation (HCC)- Primary Atrial fibrillation documented in this encounter Advance Directives Documents on File Type Date Recorded Patient Online Facilitator Expl anation POLST 01/26/2021 [place] OR DERS [...] the patient have Health Care Power of Order Builder? No Code Status History Code Status Date Activated Date Inactivated Comments No Code 03/10/2022 7:41 AM 03/10/2022 2:02 PM This order reflects the patients wishes and were consensually agreed upon. Question Answer Comments Discussion of Advance Directives occurred with: Patient Does the patient have a Living Will? No Does the patient have Health Care Power of Order Builder? No Full Code 05/07/2010 8:55 AM 05/11/2010 9:01 PM This order reflects the patients wishes and were consensually agreed upon. Question Answer Comments Discussion of Advance Directives occurred with: Patient Does the patient have a Living Will? No Does the patient have Health Care Power of Order Builder? No Full Code 05/07/2010 6:07 AM 05/07/2010 [...] the patient have Health Care Power of Order Builder? No Care Teams Purchasing And Claims Supervisor Relationship Specialty Start Date End Date Jocelyne Desai DO [address] [place] [address] [place] [id number] PCP - General Internal Medicine 11/09/16 documented as of this encounter
--- OUTSIDE RECORDS SUMMARY | 2023-06-15 08:54 | External Medical Summary | Summary of Care ---
Author Name Unknown Organization [facility] Address [address] [facility] [place] [address] Phone [phone] Care Team Providers Care Burrito Maker Name Role Phone DesaiElissaJocelyne Briggs DO Primary Care Provider + [phone] Reason for Visit * Reason Comments Dosage Adjustment Via Phone (anticoag Cl inic) Encounter Details Date Type Department Care Team (Latest Contact Info) Description 05/29/2023 6:30 AM EDT Anticoagulation Pharmacy Call Center [phone] [facility] [place] [address] [facility] [address] [place] [address] Chronic atrial fibrillation (HCC)* Allergies No known active allergiesdocumented as of this encounter (statuses as of 05/29/2023) Medications Medication Sig Dispensed Refills Start Date [...] as of this encounter (statuses as of 05/29/2023) Active Problems Patient Care Coordination No te Formatting of this note migh t be different from the original. Good connectivity [facility] for wound care [phone] Televideo if needed. 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 He has significant history DM and PVD and recommended he still follow up with podiatry,. 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 SPINAL STENOSIS-LUMBAR 09/23/2002 Vitamin D deficiency Cervical spinal stenosis documented as of this encounter (statuses as of 05/29/2023) Resolved Problems Problem Noted Date Diagnosed Date Resolved Date Depression, unspecified 11/09/2021 03/2 Depression, unspecified 11/09/202105/2022 Cellulitis of right leg 07/13/202105/2022 Last Assessment & Plan: Suspect this could be early/localized. Will treat with 7 days antibiotic. If pt cannot be reassess by Dr. Braxton office early next week will need [facility] provider recheck Multiple and open wound of [...] 11/17/19 23 LUMBAGO 12/24/2002 05/09/2007 LOC PRIM [id number] 12/24/200208/13 DEGENERATIVE SKIN DISORD 12/24/2002 VERTEBRAL FX [...] as of this encounter (statuses as of 05/29/2023) Immunizations Name Administration Dates Next Due COVID-19 [...] as of this encounter Progress Notes * Amy Tracy, manager medicare - 05/29/2023 10:36 AM EDT Contacts Type Contact Phone/Fax 05/29/2023 10:33 AM EDT Phone (Outgoing) Lg Cooley" (Self) [phone] (H) Subjective Patient Findings Negatives: Signs/symptoms of bleeding, Change in health, Change in activity, Upcoming invasive procedure, Missed doses, Extra doses, Change in medications, Change in diet/appetite, Bruising Advised patient to contact Anticoagulation Clinic if any unusual bruising or bleeding, recent illness, changes in medication, or questions/concerns. PT/INR results, Coumadin dose instructions, and next PT/INR date communicated as noted by Pharmacist: Yes AMOS NICE Tech 05/29/2023, 10:36 AM * Estefania Palacios RPh - 05/29/2023 9:15 AM EDT Images from the original note were not included. Coumadin Clinic (region specific) Objective Current Warfarin Dose As of 05/29/2023 Warfarin maintenance plan: 1.5 mg (3 mg x 0.5) every Mon, Fri; 3 mg (3 mg x 1) all other days INR Result As of 05/29/2023 INR goal: 2.0-3.0 INR used for dosin.58 (05/26/2023) Assessment & Plan Warfarin Plan As of 05/29/2023 Full warfarin instructions: 05/28: Hold; Otherwise 1.5 mg every Mon, Wed, Fri; 3 mg all other days Next INR check: 06/09/2023 Repeat PT/INR in 2 week(s) Weekly dose: decreased Additional Dosing Information: Description [facility] Nurses; fax - [phone] ([facility]) Tech to contact patient with dose instructions as noted. Estefania Palacios RPh 05/29/2023, 9:15 AM documented in this encounter Plan of Treatment Upcoming Encounters Date Type Department Care Team (Late st Contact Info) Description 06/06/2023 2:30 PM EDT Office Visit [place] [address] [facility] [place] [phone] [place] [address] 06/08/2023 9:00 AM EDT Office Visit Cardiology [address] [place] [address] Greg Mckeon PA-C [address] [place] [address] 06/12/2023 6:30 AM EDT Anticoagulation Pharmacy Call Center [phone] [facility] [place] [address] Ccp, [facility] 58 [address] [facility] [place] [address] 11/20/2023 2:00 PM EDT Office Visit Nephrology [address] [place] [address] ZemaitisMarycarmen PA-C [address] [place] [address] 02/20/2024 12:30 PM EST Nurse Only Ancillary [address] [place] [address] [place], Nurse Annual [address] [place] [address] Scheduled Procedures Name Priority Associated Diagnoses Date/Ti [...] Additional history exists CKD PHOS USE SMARTSET 63855 11/17/2023 10/0 05/2022, 09/29/2021, 05/12/2021, Additional history exists Diabetic Foot Exam 11/17/2023 11/16/2022, 0 05/05/2021, 11/22/2017, Additional history exists CKD HGB USE SMARTSET 02405 01/18/202401/17, 01/17/2023, 11/16/2022, Additional history exists Depression [...] this encounter Medical Devices Implanted Type Area Sign Fabricator Device Identifier Shelf Expiration Date Model / Serial / Lot Shaft Fibula 6cm [id number] - [id number] Implanted:Qty: 1 on 09/05/2008 at OR [facility] Tissue - Human N/A: Spine Cervical MUSCULOSKELETAL TRANSPLANT FND 04/20/2010 [id number] / [id number] 0P / Stent Eso Gw 22x70 96832-357 - [id number] Implanted:Qty: 1 on 01/21/2008 at OR [facility] N/A: Esophagus [employer] 04/12/2009 85961-556 / / [id number] Depuy Uniplate 32 Implanted:Qty: 1 on 09/05/2008 at OR [facility] N/A: Spine Cervical TAMMY & TAMMY DEPUY 1896-03-302 / / Depuy Uniplate Screw 14mm Implanted:Qty: 2 on 09/05/2008 at OR [facility] N/A: Spine Cervical TAMMY & TAMMY DEPUY 189--[id number] / / Depuy Lordotic Bengal Cage Implanted:Qty: 1 on 05/07/2010 at OR [facility] N/A: Neck 1773-06-146 / [id number] / Plate Zach 3 Level Ti 54mm - [id number] Implanted:Qty: 1 on 05/07/2010 at OR [facility] N/A: Neck JNJ : DEPUY SPINE [id number] / / Screw Zach Const St Ti 14mm - [id number] Implanted:Qty: 4 on 05/07/2010 at OR [facility] N/A: Neck JNJ : DEPUY SPINE [id number] 14 / / Screw 3.5x14 Mntr Fa [id number] - [id number] Implanted:Qty: 8 on 05/07/2010 at OR [facility] N/A: Spine Cervical JNJ : ETHICON CARDI[employer]ATIONS [id number] / / Jarrell [id number] - [id number] Implanted:Qty: 1 on 05/07/2010 at OR [facility] N/A: Spine Cervical JNJ : ETHICON CARDIOVATIONS [id number] / / Screw Inner Mntr [id number] - [id number] Implanted:Qty: 8 on 05/07/2010 at OR [facility] N/A: Spine Cervical JNJ : ETHICON CARDIOVATIONS [id number] / / Envista Intraocular Lens Implanted:Qty: 1 on 03/10/2022 by Liang Marshall MD at OR [facility] Right: Eye BAUSCH & LOMB 08/13/2023 [id number] / [id number] / [id number] Envista Intraocular Lens Implanted:Qty: 1 on 03/24/2022 by Liang Marshall MD at OR [facility] Left: Eye BAUSCH & LOMB 07/13/2024 [id number] / [id number] / [id number] documented as of this encounter Procedures Procedure Name Priority Date/Time Associated Diagnosis Comments OUTSIDE LAB-PT/INR Routine 05/26/2023 documented in this encounter Results * OUTSIDE LAB-PT/INR (05/26/2023) INR-OUTSIDE LAB 3.58 History Per Patient LABORATORY documented in this encounter Visit Diagnoses Diagnosis Chronic atrial fibrillation (HCC)- Primary Atrial fibrillation documented in this encounter Advance Directives Documents on File Type Date Recorded Patient Anesthesiologist/Physician Expl anation POLST 01/26/2021 [place] DERS [...] the patient have Health Care Power of Farmworker Pullet Farm? No Code Status History Code Status Date Activated Date Inactivated Comments No Code 03/10/2022 7:41 AM 03/10/2022 2:02 PM This order reflects the patients wishes and were consensually agreed upon. Question Answer Comments Discussion of Advance Directives occurred with: Patient Does the patient have a Living Will? No Does the patient have Health Care Power of Farmworker Pullet Farm? No Full Code 05/07/2010 8:55 AM 05/11/2010 9:01 PM This order reflects the patients wishes and were consensually agreed upon. Question Answer Comments Discussion of Advance Directives occurred with: Patient Does the patient have a Living Will? No Does the patient have Health Care Power of Farmworker Pullet Farm? No Full Code 05/07/2010 6:07 AM 05/07/2010 [...] the patient have Health Care Power of Farmworker Pullet Farm? No Care Teams Burrito Maker Relationship Specialty Start Date End Date Jocelyne Desai DO [address] [place] [address] [place] [address] PCP - General Internal Medicine 11/09/16 documented as of this encounter
--- OUTSIDE RECORDS SUMMARY | 2023-06-15 08:54 | External Medical Summary | Summary of Care ---
Author Name Unknown Organization [facility] Address [address] [facility] [place] [address] Phone [phone] Care Team Providers Care Sock And Stocking Ironer Name Role Phone Jocelyne Desai DO Primary Care Provider [phone] Encounter Details Date Type Department Care Team (Late st Contact Info) Description 05/26/2023 Result Scan Unspecified Department <No scans attached> Allergies No known active [...] be different from the original. Good connectivity [facility] for wound care [phone] Televideo if needed. 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 He has significant history DM and PVD and recommended he still follow up with podiatry,. 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 Will treat with 7 days antibiotic. If pt cannot be reassess by Dr. Braxton office early next week will need [facility] provider recheck Multiple and open wound of [...] 11/17/19 23 LUMBAGO 12/24/2002 05/09/2007 LOC PRIM [id number] 12/24/200208/13 DEGENERATIVE SKIN DISORD 12/24/2002 VERTEBRAL FX [...] MCG/0.3 mL, 12 YRS AND ABOVE, [facility] 11/16/2022 Covid-19, Mrna, Lnp-s, Pf, B [...] Description 06/06/2023 2:30 PM EDT Office Visit Family Medicine [address] [place] [phone] Jocelyne Des[address] [place] [address] 06/08/2023 9:00 AM EDT Office Visit Cardiology [address] [place] [address] Greg Mckeon PA-C [address] [place] [address] 11/20/2023 2:00 PM EDT Office Visit Nephrology [address] [place] [address] Marycarmen Kowalski PA-C [address] [place] [address] 02/20/2024 12:30 PM EST Nurse Only Ancillary [address] [place] [address] [place], Nurse [address] [place] [address] Scheduled Procedures Name Priority Associated Diagnoses Date/Ti [...] Additional history exists CKD PHOS USE SMARTSET 20142 11/17/2023 100 05/2022, 09/29/2021, 05/12/2021, Additional history exists Diabetic Foot Exam 11/17/2023 11/16/2022, 0 05/05/2021, 11/22/2017, Additional history exists CKD HGB USE SMARTSET 58329 01/18/202401/17, 01/17/2023, 11/16/2022, Additional history exists Depression [...] this encounter Medical Devices Implanted Type Area Specialty Trimmer Device Identifier Shelf Expiration Date Model / Serial / Lot Shaft Fibula 6cm [id number] - [id number] Implanted:Qty: 1 on 09/05/[address] [facility] Tissue - Human N/A: Spine Cervical MUSCULOSKELETAL TRANSPLANT FND 04/20/2010 [id number] / [id number] / Stent Eso Gw 22x70 75963-224 - [id number] Implanted:Qty: 1 on 01/21/[address] [facility] N/A: Esophagus [employer]US INC 04/12/2009 12940-510 / / [id number] Depuy Uniplate 32 Implanted:Qty: 1 on 09/05/[address] [facility] N/A: Spine Cervical TAMMY & TAMMY DEPUY 1897-02-302 / / Depuy Uniplate Screw 14mm Implanted:Qty: 2 on 09/05/[address] [facility] N/A: Spine Cervical TAMMY & TAMMY DEPUY 1897-06-017 / / Depuy Lordotic Bengal Cage Implanted:Qty: 1 on 05/07/[address] [facility] N/A: Neck 1773-06-146 / 1773-06-146 / Plate Zach 3 Level Ti 54mm - [id number] Implanted:Qty: 1 on 05/07/[address] [facility] N/A: Neck JNJ : DEPUY SPINE [id number] / / Screw Zach Const St Ti 14mm - [id number] Implanted:Qty: 4 on 05/07/[address] [facility] N/A: Neck JNJ : DEPUY SPINE [id number] / / Screw 3.5x14 Mntr Fa [id number] - [id number] Implanted:Qty: 8 on 05/07/[address] [facility] N/A: Spine Cervical JNJ : ETHICON CARDIOVATIONS [id number] / / Jarrell [id number] - [id number] Implanted:Qty: 1 on 05/07/[address] [facility] N/A: Spine Cervical JNJ : ETHICON CARDIOVATIONS [id number] / / Screw Inner Mntr [id number] - [id number] Implanted:Qty: 8 on 05/07/[address] [facility] N/A: Spine Cervical JNJ : ETHICON CARDIOVATIONS [id number] / / Envista Intraocular Lens Implanted:Qty: 1 on 03/10/2022 by Liang Marshall MD at OR [facility] Right: Eye BAUSCH & LOMB 08/13/2023 [id number] / [id number] / [id number] Envista Intraocular Lens Implanted:Qty: 1 on 03/24/2022 by Liang Marshall MD at OR [facility] Left: Eye BAUSCH & LOMB 07/13/2024 [id number] / [id number] / [id number] documented as of this encounter Procedures Procedure Name Priority Date/Time Associated Diagnosis Comments OUTSIDE LAB RESULTS 05/26/2023 documented in this encounter Results * OUTSIDE LAB RESULTS (05/26/2023) 05/26/2023 No Physician Data Unknown LABORATORY documented in this encounter Advance Directives Documents on File Type Date Recorded Patient Courtroom Deputy Expl anation POLST 01/26/2021 [place] DERS [...] the patient have Health Care Power of Weigh Tank Operator? No Code Status History Code Status Date Activated Date Inactivated Comments No Code 03/10/2022 7:41 AM 03/10/2022 2:02 PM This order reflects the patients wishes and were consensually agreed upon. Question Answer Comments Discussion of Advance Directives occurred with: Patient Does the patient have a Living Will? No Does the patient have Health Care Power of Weigh Tank Operator? No Full Code 05/07/2010 8:55 AM 05/11/2010 9:01 PM This order reflects the patients wishes and were consensually agreed upon. Question Answer Comments Discussion of Advance Directives occurred with: Patient Does the patient have a Living Will? No Does the patient have Health Care Power of Weigh Tank Operator? No Full Code 05/07/2010 6:07 AM 05/07/2010 [...] the patient have Health Care Power of Weigh Tank Operator? No Care Teams Sock And Stocking Ironer Relationship Specialty Start Date End Date Jocelyne Desai DO [address] [place] [address] [place] [address] PCP - General Internal Medicine 11/09/16 documented as of this encounter
--- OUTSIDE RECORDS SUMMARY | 2023-06-15 08:55 | External Medical Summary | Summary of Care ---
Author Name Unknown Organization [facility] Address [address] [facility] [place] [address] Phone [phone] Care Team Providers Care Drilling Foreman Name Role Phone DesaiElissaJocelynejohn Cunninghame DO Primary Care Provider + [phone] Reason for Visit * Reason Comments Dosage Adjustment Via Phone (anticoag Cl inic) Encounter Details Date Type Department Care Team (Latest Contact Info) Description 05/15/2023 6:30 AM EDT Anticoagulation Pharmacy Call Center [address] [place] [address] [facility] [address] [place] [address] Chronic atrial fibrillation (HCC)* Allergies No known active allergiesdocumented as of this encounter (statuses as of 05/15/2023) Medications Medication Sig Dispensed Refills Start Date [...] as of this encounter (statuses as of 05/15/2023) Active Problems Patient Care Coordination No te Formatting of this note migh t be different from the original. Good connectivity [facility] for wound care [phone] Televideo if needed. 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 He has significant history DM and PVD and recommended he still follow up with podiatry,. 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 SPINAL STENOSIS-LUMBAR 09/23/2002 Vitamin D deficiency Cervical spinal stenosis documented as of this encounter (statuses as of 05/15/2023) Resolved Problems Problem Noted Date Diagnosed Date Resolved Date Depression, unspecified 11/09/2021 03/2 Depression, unspecified 11/09/202105/2022 Cellulitis of right leg 07/13/202105/2022 Last Assessment & Plan: Suspect this could be early/localized. Will treat with 7 days antibiotic. If pt cannot be reassess by Dr. Braxton office early next week will need [facility] provider recheck Multiple and open [...] 11/17/19 23 LUMBAGO 12/24/2002 05/09/2007 LOC PRIM [id number] 12/24/200208/13 DEGENERATIVE SKIN DISORD 12/24/2002 VERTEBRAL FX [...] as of this encounter (statuses as of 05/15/2023) Immunizations Name Administration Dates Next Due COVID-19 [...] as of this encounter Progress Notes * Jocelyne Whitmore, [facility] - 05/15/2023 9:57 AM EDT Medication Therapy Disease Management - Anticoagulation Patient: Lg Colby Yasir | : 1950 Objective Current Warfarin Dose As of 05/15/2023 Warfarin maintenance plan: 1.5 mg (3 mg x 0.5) every Mon, Fri; 3 mg (3 mg x 1) all other days INR Result As of 05/15/2023 INR goal: 2.0-3.0 INR used for dosing: No new INR was available at the time of this encounter. Assessment & Plan Warfarin Plan As of 05/15/2023 Full warfarin instructions: 1.5 mg every Mon, Fri; 3 mg all other days No change documented: Jocelyne Whitmore RPh Next INR check: 05/17/2023 Repeat PT/INR in 2 day(s) Weekly dose: not changed Additional Dosing Information: Description [facility] Nurses; fax - [phone] ([facility]) Jocelyne Whitmore RPh Clinical Pharmacist 05/15/2023, 9:57 AM * Janice Shaw metal window frame maker - 05/15/2023 8:25 AM EDT Spoke with at [facility] lab, no new INR result available for patient from last week. Spoke with Shanti at [facility] Nurses. Patient was seen on Thursday 05/11, but there was no INR result documented. Patient is scheduled for a visit on Monday, 05/16. They can obtain INR at this visit, if we fax them an order please. Follow up call scheduled. Thank you, Janice Shaw Fine [facility] 05/15/2023,8:26 AM documented in this encounter Plan of Treatment Upcoming Encounters Date Type Department Care Team (Late st Contact Info) Description 05/18/2023 6:30 AM EDT Anticoagulation Pharmacy Call Center WB [address] [place] [address] [facility] 58 60 [facility] [place] [address] 06/06/2023 2:30 PM EDT Office Visit Family Medicine [address] [place] [phone] Jocelyne Desai[address] [place] [address] 06/08/2023 9:00 AM EDT Office Visit Cardiology [address] [place] [address] Greg Mckeon PA-C [address] [place] [address] 11/20/2023 2:00 PM EDT Office Visit Nephrology [address] [place] [address] ZeMarycarmen alan PA-C [address] [facility] [address] 02/20/2024 12:30 PM EST Nurse Only Ancillary [address] [place] [address] [place], Nurse [address] [place] [address] Scheduled Procedures Name Priority Associated Diagnoses Date/Ti [...] Additional history exists CKD PHOS USE SMARTSET 96180 11/17/2023 10/0 05/2022, 09/29/2021, 05/12/2021, Additional history exists Diabetic Foot Exam 11/17/2023 11/16/2022, 0 05/05/2021, 11/22/2017, Additional history exists CKD HGB USE SMARTSET 95339 01/18/202401/17, 01/17/2023, 11/16/2022, Additional history exists Depression [...] this encounter Medical Devices Implanted Type Area Dye Machine Operator Device Identifier Shelf Expiration Date Model / Serial / Lot Shaft Fibula 6cm [id number] - [id number] Implanted:Qty: 1 on 09/05/2008 at OR [facility] Tissue - Human N/A: Spine Cervical MUSCULOSKELETAL TRANSPLANT FND 04/20/2010 [id number] / [id number] 0P / Stent Eso Gw 22x70 [id number] - [id number] Implanted:Qty: 1 on 01/21/2008 at OR [facility] N/A: Esophagus ALVEOLUS INC 04/12/2009 57061-840 / / [id number] Depuy Uniplate 32 Implanted:Qty: 1 on 09/05/2008 at OR [facility] N/A: Spine Cervical TAMMY & TAMMY DEPUY 1897-02-302 / / Depuy Uniplate Screw 14mm Implanted:Qty: 2 on 09/05/2008 at OR [facility] N/A: Spine Cervical TAMMY & TAMMY DEPUY 1897-06-017 / / Depuy Lordotic Bengal Cage Implanted:Qty: 1 on 05/07/2010 at OR [facility] N/A: Neck 1773-06-146 / [id number] / Plate Zach 3 Level Ti 54mm - [id number] Implanted:Qty: 1 on 05/07/2010 at OR [facility] N/A: Neck JNJ : DEPUY SPINE [id number] / / Screw Zach Const St Ti 14mm - [id number] Implanted:Qty: 4 on 05/07/2010 at OR [facility] N/A: Neck JNJ : DEPUY SPINE [id number] / / Screw 3.5x14 Mntr Fa [id number] - [id number] Implanted:Qty: 8 on 05/07/2010 at OR [facility] N/A: Spine Cervical JNJ : ETHICON CARDIOVATIONS [id number] / / Jarrell [id number] - [id number] Implanted:Qty: 1 on 05/07/2010 at OR [facility] N/A: Spine Cervical JNJ : ETHICON CARDIOVATIONS [id number] / / Screw Inner Mntr [id number] - [id number] Implanted:Qty: 8 on 05/07/2010 at OR [facility] N/A: Spine Cervical JNJ : ETHICON CARDIOVATIONS [id number] / / Envista Intraocular Lens Implanted:Qty: 1 on 03/10/2022 by Liang Marshall MD at OR [facility] Right: Eye BAUSCH & LOMB 08/13/2023 [id number] / [id number] / [id number] Envista Intraocular Lens Implanted:Qty: 1 on 03/24/2022 by Liang Marshall MD at OR [facility] Left: Eye BAUSCH & LOMB 07/13/2024 [id number] / [id number] / [id number] documented as of this encounter Visit Diagnoses Diagnosis Chronic atrial fibrillation (HCC)- Primary Atrial fibrillation documented in this encounter Advance Directives Documents on File Type Date Recorded Patient Traveling Engineer Torres ARREOLA 01/26/2021 [place] DERS FOR LIFE-SUSTAINING TREATMENT [...] the patient have Health Care Power of Newspaper Library Manager? No Code Status History Code Status Date Activated Date Inactivated Comments No Code 03/10/2022 7:41 AM 03/10/2022 2:02 PM This order reflects the patients wishes and were consensually agreed upon. Question Answer Comments Discussion of Advance Directives occurred with: Patient Does the patient have a Living Will? No Does the patient have Health Care Power of Newspaper Library Manager? No Full Code 05/07/2010 8:55 AM 05/11/2010 9:01 PM This order reflects the patients wishes and were consensually agreed upon. Question Answer Comments Discussion of Advance Directives occurred with: Patient Does the patient have a Living Will? No Does the patient have Health Care Power of Newspaper Library Manager? No Full Code 05/07/2010 6:07 AM 05/07/2010 [...] the patient have Health Care Power of Newspaper Library Manager? No Care Teams Drilling Foreman Relationship Specialty Start Date End Date Jocelyne Desai DO [address] [place] [address] [place] [address] PCP - General Internal Medicine 11/09/16 documented as of this encounter"
--- OUTSIDE RECORDS SUMMARY | 2023-06-15 08:55 | External Medical Summary | Summary of Care ---
Author Name Unknown Organization [facility] Address [address] [facility] [place] [address] Phone [phone] Care Team Providers Care Online Merchant Name Role Phone Lloyd Jocelyne Briggs Primary Care Provider [phone] Encounter Details Date Type Department Care Team (Late st Contact Info) Description 05/12/2023 Result Scan Unspecified Department Estefania Palacios, [facility] [address] [place] [address] <No scans attached> Allergies No known active [...] be different from the original. Good connectivity [facility] for wound care [phone] Televideo if needed. 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 He has significant history DM and PVD and recommended he still follow up with podiatry,. 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 1 Status [...] ICD-10 update of inactive term PLATT RESEARCH OTHER*[id number] 02/20/2007 ADVANCE DIRECTIVE INFORMATION 01/19/2005 Overview: Yes, [...] [facility] office early next week will need [facility] provider recheck Multiple and open wound [...] 11/17/19 23 LUMBAGO 12/24/2002 05/09/2007 LOC PRIM [id number] 12/24/200208/13 DEGENERATIVE SKIN DISORD 12/24/2002 VERTEBRAL FX [...] MCG/0.3 mL, 12 YRS AND ABOVE, IM ([facility]) 11/16/2022 Covid-19, Mrna, Lnp-s, Pf, B ivalent, [...] Care Team (Late st Contact Info) Description 05/15/2023 6:15 PM EDT Anticoagulation Pharmacy Call Center WB [address] [place] [address] [facility] 58 60 [facility] [place] [address] 06/06/2023 2:30 PM EDT Office Visit Family Medicine [address] [place] [phone] [address] [place] [address] 06/08/2023 9:00 AM EDT Office Visit Cardiology [address] [place] [address] Greg Mckeon PACinthiaC [address] [place] [address] 11/20/2023 2:00 PM EDT Office Visit Nephrology [address] [place] [address] Marycarmen Kowalski PA-C [address] [facility] [address] 02/20/2024 12:30 PM EST Nurse Only Ancillary [address] [place] [address] [place], Nurse [address] [place] [address] Scheduled Procedures Name Priority Associated Diagnoses Date/Ti [...] Additional history exists CKD PHOS USE SMARTSET 76215 11/17/2023 10/0 05/2022, 09/29/2021, 05/12/2021, Additional history exists Diabetic Foot Exam 11/17/2023 11/16/2022, 0 05/05/2021, 11/22/2017, Additional history exists CKD HGB USE SMARTSET 83008 01/18/202401/17, 01/17/2023, 11/16/2022, Additional history exists Depression [...] this encounter Medical Devices Implanted Type Area Machine Plug Shaper Device Identifier Shelf Expiration Date Model / Serial / Lot Shaft Fibula 6cm [id number] - [id number] Implanted:Qty: 1 on 09/05/2008 at OR [facility] Tissue - Human N/A: Spine Cervical MUSCULOSKELETAL TRANSPLANT FND 04/20/2010 [id number] / [id number] 0P / Stent Eso Gw 22x70 42668-732 - [id number] Implanted:Qty: 1 on 01/21/2008 at OR [facility] N/A: Esophagus ALVEOLUS INC 04/12/2009 24937-951 / / [id number] Depuy Uniplate 32 Implanted:Qty: 1 on 09/05/2008 [...] [facility] N/A: Neck 1773--146 / [id number] / Plate Zach 3 Level Ti 54mm - [id number] Implanted:Qty: 1 on 05/07/2010 at OR [facility] N/A: Neck JNJ : DEPUY SPINE [id number] 54 / / Screw Zach Const St Ti 14mm - [id number] Implanted:Qty: 4 on 05/07/2010 at OR [facility] N/A: Neck JNJ : DEPUY SPINE [id number] 14 / / Screw 3.5x14 Mntr Fa [id number] - [id number] Implanted:Qty: 8 on 05/07/2010 at OR [facility] N/A: Spine Cervical JNJ : ETHICON CARDIOVATIONS [id number] / / Jarrell [id number] - [id number] Implanted:Qty: 1 on 05/07/2010 at OR [facility] N/A: Spine Cervical JNJ : ETHICON CARDIOVATIONS [id number] / / Screw Inner Mntr [id number] - [id number] Implanted:Qty: 8 on 05/07/2010 at OR [facility] N/A: Spine Cervical JNJ : ETHICON CARDIOVATIONS [id number] / / Envista Intraocular Lens Implanted:Qty: 1 on 03/10/2022 by Liang Marshall MD at OR [facility] Right: Eye BAUSCH & LOMB 08/13/2023 [id number] / [id number] / [id number] Envista Intraocular Lens Implanted:Qty: 1 on 03/24/2022 by Liang Marshall MD at OR [facility] Left: Eye BAUSCH & LOMB 07/13/2024 [id number] / [id number] / [id number] documented as of this encounter Procedures Procedure Name Priority Date/Time Associated Diagnosis Comments OUTSIDE LAB RESULTS 05/12/2023 documented in this encounter Results * OUTSIDE LAB RESULTS (05/12/2023) 05/12/2023 Estefania Paalcios [facility] LABORATORY documented in this encounter Advance Directives Documents on File Type Date Recorded Patient Vessel Liner Expl anation POLST 01/26/2021 [place] DERS [...] the patient have Health Care Power of Liver Trimmer? No Code Status History Code Status Date Activated Date Inactivated Comments No Code 03/10/2022 7:41 AM 03/10/2022 2:02 PM This order reflects the patients wishes and were consensually agreed upon. Question Answer Comments Discussion of Advance Directives occurred with: Patient Does the patient have a Living Will? No Does the patient have Health Care Power of Liver Trimmer? No Full Code 05/07/2010 8:55 AM 05/11/2010 9:01 PM This order reflects the patients wishes and were consensually agreed upon. Question Answer Comments Discussion of Advance Directives occurred with: Patient Does the patient have a Living Will? No Does the patient have Health Care Power of Liver Trimmer? No Full Code 05/07/2010 6:07 AM 05/07/2010 [...] the patient have Health Care Power of Liver Trimmer? No Care Teams Online Merchant Relationship Specialty Start Date End Date Jocelyne Desai DO [address] [place] [address] [place] [phone] PCP - General Internal Medicine 11/09/16 documented as of this encounter
--- OUTSIDE RECORDS SUMMARY | 2023-06-15 08:55 | External Medical Summary | Summary of Care ---
Author Name Unknown Organization [facility] Address [address] [facility] [address] Phone [phone] Care Team Providers Care Medical Screener Name Role Phone DesaiElissaJocelynejohn Cunninghame DO Primary Care Provider + [phone] Reason for Visit * Reason Comments Dosage Adjustment Via Phone (anticoag Cl inic) Encounter Details Date Type Department Care Team (Latest Contact Info) Description 05/15/2023 6:15 PM EDT Anticoagulation Pharmacy Call Center [address] [place] [address] [facility] 58 [address] [place] [address] Chronic atrial fibrillation (HCC)* Allergies No known [...] be different from the original. Good connectivity [facility] for wound care [phone] Televideo if needed. Problem Noted Date Diagnosed [...] up with podiatry,. 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 1 Status [...] ICD-10 update of inactive term PLATT RESEARCH OTHER*[id number] 02/20/2007 ADVANCE DIRECTIVE INFORMATION 01/19/2005 Overview: Yes, [...] [facility] office early next week will need [facility] provider recheck Multiple and open wound [...] 11/17/19 23 LUMBAGO 12/24/2002 05/09/2007 LOC PRIM [id number] 12/24/200208/13 DEGENERATIVE SKIN DISORD 12/24/2002 VERTEBRAL FX [...] as of this encounter Progress Notes * Libby Zamorano, professor of languages - 05/15/2023 1:08 PM EDT Contacts Type Contact Phone/Fax 05/15/2023 01:05 PM EDT Phone (Outgoing) Lg Cooley" (Self) [phone] (H) Spoke to Patient Subjective Patient Findings [...] date communicated as noted by Pharmacist: Yes LIBBY ZAMORANO CPhT 05/15/2023, 1:08 PM * Estefania Palacios RPh - 05/15/2023 12:50 PM EDT Coumadin Clinic (region specific) Objective Current Warfarin Dose As of 05/15/2023 Warfarin maintenance plan: 1.5 mg (3 mg x 0.5) every Mon, Fri; 3 mg (3 mg x 1) all other days INR Result As of 05/15/2023 INR goal: 2.0-3.0 INR used for dosin.69 (05/12/2023) Assessment & Plan Warfarin Plan As of 05/15/2023 Full warfarin instructions: 05/14: Hold; Otherwise 1.5 mg every Mon, Fri; 3 mg all other days Next INR check: 05/26/2023 Repeat PT/INR in 2 week(s) Weekly dose: not changed Additional Dosing Information: Description [facility] Nurses; fax - [phone] ([facility]) Tech to contact patient with dose instructions as noted. Estefania Palacios RPh 05/15/2023, 12:59 PM documented in this encounter Plan of Treatment Upcoming Encounters Date Type Department Care Team (Late st Contact Info) Description 06/06/2023 2:30 PM EDT Office Visit Family Medicine [address] [phone] [place] [address] 06/08/2023 9:00 AM EDT Office Visit Cardiology [address] [place] [address] Greg Mckeon PACinthiaC [address] [place] [address] 11/20/2023 2:00 PM EDT Office Visit Nephrology [address] [place] [address] Marycarmen Kowalski PA-C [address] [place] [address] 02/20/2024 12:30 PM EST Nurse Only Ancillary [address] [place] [address] [place], Nurse Annual [address] [place] [address] Scheduled Procedures Name Priority Associated Diagnoses Date/Ti [...] Additional history exists CKD PHOS USE SMARTSET 32699 11/17/2023 10/0 05/2022, 09/29/2021, 05/12/2021, Additional history exists Diabetic Foot Exam 11/17/2023 11/16/2022, 0 05/05/2021, 11/22/2017, Additional history exists CKD HGB USE SMARTSET 94026 01/18/202401/17, 01/17/2023, 11/16/2022, Additional history exists Depression [...] this encounter Medical Devices Implanted Type Area Senior Behavioral Scientist Device Identifier Shelf Expiration Date Model / Serial / Lot Shaft Fibula 6cm [id number] - [id number] Implanted:Qty: 1 on 09/05/2008 at OR [facility] Tissue - Human N/A: Spine Cervical MUSCULOSKELETAL TRANSPLANT FND 04/20/2010 [id number] / [id number] 0P / Stent Eso Gw 22x70 [id number] - [id number] Implanted:Qty: 1 on 01/21/2008 at OR [facility] N/A: Esophagus ALVEOLUS INC 04/12/2009 19347-887 / / [id number] Depuy Uniplate 32 Implanted:Qty: 1 on 09/05/2008 at OR [facility] N/A: Spine Cervical TAMMY & TAMMY DEPUY 1896-03-302 / / Depuy Uniplate Screw 14mm Implanted:Qty: 2 on 09/05/2008 at OR [facility] N/A: Spine Cervical TAMMY & TAMMY DEPUY 1896--017 / / Depuy Lordotic Bengal Cage Implanted:Qty: 1 on 05/07/2010 at OR [facility] N/A: Neck 1773-06-146 / 1773--146 / Plate Zach 3 Level Ti 54mm - [id number] Implanted:Qty: 1 on 05/07/2010 at OR [facility] N/A: Neck JNJ : DEPUY SPINE [id number] / / Screw Zach Const St Ti 14mm - [id number] Implanted:Qty: 4 on 05/07/2010 at OR [facility] N/A: Neck JNJ : DEPUY SPINE [id number] 14 / / Screw 3.5x14 Mntr Fa [id number] - [id number] Implanted:Qty: 8 on 05/07/2010 at OR [facility] N/A: Spine Cervical JNJ : ETHICON CARDIOVATIONS [id number] / / Jarrell [id number] - [id number] Implanted:Qty: 1 on 05/07/2010 at OR [facility] N/A: Spine Cervical JNJ : ETHICON CARDIOVATIONS [id number] / / Screw Inner Mntr [id number] - [id number] Implanted:Qty: 8 on 05/07/2010 at OR [facility] N/A: Spine Cervical JNJ : ETHICON CARDIOVATIONS [id number] / / Envista Intraocular Lens Implanted:Qty: 1 on 03/10/2022 by Liang Marshall MD at OR [facility] Right: Eye BAUSCH & LOMB 08/13/2023 [id number] / [id number] / [id number] Envista Intraocular Lens Implanted:Qty: 1 on 03/24/2022 by Liang Marshall MD at OR [facility] Left: Eye BAUSCH & LOMB 07/13/2024 [id number] / [id number] / [id number] documented as of this encounter Procedures Procedure Name Priority Date/Time Associated Diagnosis Comments OUTSIDE LAB-PT/INR Routine 05/12/2023 documented in this encounter Results * OUTSIDE LAB-PT/INR (05/12/2023) INR-OUTSIDE LAB 3.69 OUTS V[facility]SI LAB (SEE SCANNED REPORT) History Per Patient LABORATORY OUTSIDE LAB (SEE SCANNED REPORT) documented in this encounter Visit Diagnoses Diagnosis Chronic atrial fibrillation (HCC)- Primary Atrial fibrillation documented in this encounter Advance Directives Documents on File Type Date Recorded Patient Parts Expediter Expl anation POLST 01/26/2021 [place] DERS [...] the patient have Health Care Power of Chancery Clerk? No Code Status History Code Status Date Activated Date Inactivated Comments No Code 03/10/2022 7:41 AM 03/10/2022 2:02 PM This order reflects the patients wishes and were consensually agreed upon. Question Answer Comments Discussion of Advance Directives occurred with: Patient Does the patient have a Living Will? No Does the patient have Health Care Power of Chancery Clerk? No Full Code 05/07/2010 8:55 AM 05/11/2010 9:01 PM This order reflects the patients wishes and were consensually agreed upon. Question Answer Comments Discussion of Advance Directives occurred with: Patient Does the patient have a Living Will? No Does the patient have Health Care Power of Chancery Clerk? No Full Code 05/07/2010 6:07 AM 05/07/2010 [...] the patient have Health Care Power of Chancery Clerk? No Care Teams Medical Screener Relationship Specialty Start Date End Date Desai, Jocelyne Briggs, DO [address] [place] [address] [place] [phone] PCP - General Internal Medicine 11/09/16 documented as of this encounter
--- OUTSIDE RECORDS SUMMARY | 2023-06-15 08:56 | External Medical Summary | Summary of Care ---
Author Name Unknown Organization [facility] Address [address] [facility] [place] [address] Phone [phone] Care Team Providers Care Fringing Machine Operator Name Role Phone Jocelyne Desai DO Primary Care Provider Reason for Visit * Reason Onset Date Comments Home Health 05/03/2023 Order Request 05/03/2023 Encounter Details Date Type Department Care Team (Late st Contact Info) Description 05/03/2023 Telephone Family Medicine [address] [phone] Jocelyne Desai DO [address] [place], [place] [address] [address] Home Health; Order Request Allergies No known active allergiesdocumented as of this encounter (statuses as of 05/09/2023) Medications Medication Sig Dispensed Refills Start Date End Date Status ACETAMINOPHEN 500 MG PO TABS 2 tabs every 6 hours as needed for discomfort 0 11/01/2013 Active Cyanocobalamin (VITAMIN B-12) 1000 MCG Tablet Take 1 Tablet by mouth every evening. 0 11/22/2017 Active Cholecalciferol (VITAMIN D3) 50 MCG (1999 UT) Capsule Take 1 Capsule by mouth [...] as of this encounter (statuses as of 05/09/2023) Active Problems Patient Care Coordination No te Formatting of this note migh t be different from the original. Good connectivity [facility] for wound care [phone] Televideo if needed. 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 He has significant history DM and PVD and recommended he still follow up with podiatry,. 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 SPINAL STENOSIS-LUMBAR 09/23/2002 Vitamin D deficiency Cervical spinal stenosis documented as of this encounter (statuses as of 05/09/2023) Resolved Problems Problem Noted Date Diagnosed Date Resolved Date Depression, unspecified 11/09/202104/14 Depression, unspecified 11/09/202105/2022 Cellulitis of right leg 07/13/202105/2022 Last Assessment & Plan: Suspect this could be early/localized. Will treat with 7 days antibiotic. If pt cannot be reassess by Dr. Braxton office early next week will need [facility] provider recheck Multiple and open [...] 11/17/19 23 LUMBAGO 12/24/2002 05/09/2007 LOC PRIM [id number] 12/24/200208/13 DEGENERATIVE SKIN DISORD 12/24/2002 VERTEBRAL FX [...] as of this encounter (statuses as of 05/09/2023) Immunizations Name Administration Dates Next Due COVID-19 [...] on file documented as of this encounter Miscellaneous Notes * Telephone Encounter - Jocelyne Desai DO - 05/05/2023 1:30 PM EDT Janice, can you verify that these orders were signed. * Telephone Encounter - Mimi Dawson LPN - 05/03/2023 2:27 PM EDT Lacy from [facility] is calling. States that home health orders were faxed to the office on 05/01/23 to [phone]. Will signatures for: Plan of Care- 04/16/23 documented in this encounter Plan of Treatment Upcoming Encounters Date Type Department Care Team (Late st Contact Info) Description 05/15/2023 6:30 AM EDT Anticoagulation Pharmacy Call Center [address] [facility] [place] [address] [facility] [address] [facility] [place] [address] 06/06/2023 2:30 PM EDT Office Visit Family Medicine [address] [place] [phone] Jocelyne Desai DO [address] [place] [address] [place] [address] 06/08/2023 9:00 AM EDT Office Visit Cardiology [address] [place] [address] Greg Mckeon PA-C [address] [place] [address] 11/20/2023 2:00 PM EDT Office Visit Nephrology [address] [place] [address] Marycarmen Kowalski PA-C [address] [place] [address] 02/20/2024 12:30 PM EST Nurse Only Ancillary [address] [place] [address] [place], Nurse [address] [place] [address] Scheduled Procedures Name Priority Associated Diagnoses Date/Ti [...] Additional history exists CKD PHOS USE SMARTSET 70593 11/17/2023 10/0 05/2022, 09/29/2021, 05/12/2021, Additional history exists Diabetic Foot Exam 11/17/2023 11/16/2022, 0 05/05/2021, 11/22/2017, Additional history exists CKD HGB USE SMARTSET 16064 01/18/202401/17, 01/17/2023, 11/16/2022, Additional history exists Depression [...] this encounter Medical Devices Implanted Type Area Vest Backer Device Identifier Shelf Expiration Date Model / Serial / Lot Shaft Fibula 6cm [id number] - [id number] Implanted:Qty: 1 on 09/05/2008 at [place] [facility] Tissue - Human N/A: Spine Cervical MUSCULOSKELETAL TRANSPLANT FND 04/20/2010 [id number] / [id number] / Stent Eso Gw 22x70 01981-122 - [id number] Implanted:Qty: 1 on 01/21/2008 at [place] [facility] N/A: Esophagus [employer] 04/12/2009 [id number] / / [id number] Depuy Uniplate 32 Implanted:Qty: 1 on 09/05/2008 at [place] [facility] N/A: Spine Cervical TAMMY & TAMMY DEPUY 1897-02-302 / / Depuy Uniplate Screw 14mm Implanted:Qty: 2 on 09/05/2008 at [place] [facility] N/A: Spine Cervical TAMMY & TAMMY DEPUY 1897-06-017 / / Depuy Lordotic Bengal Cage Implanted:Qty: 1 on 05/07/2010 at [place] [facility] N/A: Neck 1773-06-146 / 1773-06-146 / Plate Zach 3 Level Ti 54mm - [id number] Implanted:Qty: 1 on 05/07/2010 at [place] [facility] N/A: Neck JNJ : DEPUY SPINE [id number] / / Screw Zach Const St Ti 14mm - [id number] Implanted:Qty: 4 on 05/07/2010 at [place] [facility] N/A: Neck JNJ : DEPUY SPINE [id number] / / Screw 3.5x14 Mntr Fa [id number] - [id number] Implanted:Qty: 8 on 05/07/2010 at [place] [facility] N/A: Spine Cervical JNJ : ETHICON CARDIOVATIONS [id number] / / Jarrell [id number] - [id number] Implanted:Qty: 1 on 05/07/2010 at [place] [facility] N/A: Spine Cervical JNJ : ETHICON CARDIOVATIONS [id number] / / Screw Inner Mntr [id number] - [id number] Implanted:Qty: 8 on 05/07/2010 at [place] [facility] N/A: Spine Cervical JNJ : ETHICON CARDIOVATIONS [id number] / / Envista Intraocular Lens Implanted:Qty: 1 on 03/10/2022 by Liang Marshall MD at OR [facility] Right: Eye BAUSCH & LOMB 08/13/2023 [id number] / [id number] / [id number] Envista Intraocular Lens Implanted:Qty: 1 on 03/24/2022 by Liang Marshall MD at OR [facility] Left: Eye BAUSCH & LOMB 07/13/2024 [id number] / [id number] / [id number] documented as of this encounter Advance Directives Documents on File Type Date Recorded Patient Compliance Paralegal Expl anation POLST 01/26/2021 [place] DERS FOR LIFE-SUSTAINING TREATMENT Latest Code Status on File Code Status Date Activated Date Inactivated Comments No Code 03/24/2022 7:56 AM 03/24/2022 1:57 PM This or wendy reflects the patients wishes and were consensually agreed upon. Question Answer Comments Discussion of Advance Directives occurred with: Patient Does the patient have a Living Will? No Does the patient have Health Care Power of Enrolled Agent? No Code Status History Code Status Date Activated Date Inactivated Comments No Code 03/10/2022 7:41 AM 03/10/2022 2:02 PM This order reflects the patients wishes and were consensually agreed upon. Question Answer Comments Discussion of Advance Directives occurred with: Patient Does the patient have a Living Will? No Does the patient have Health Care Power of Enrolled Agent? No Full Code 05/07/2010 8:55 AM 05/11/2010 9:01 PM This order reflects the patients wishes and were consensually agreed upon. Question Answer Comments Discussion of Advance Directives occurred with: Patient Does the patient have a Living Will? No Does the patient have Health Care Power of Enrolled Agent? No Full Code 05/07/2010 6:07 AM 05/07/2010 [...] the patient have Health Care Power of Enrolled Agent? No Care Teams Fringing Machine Operator Relationship Specialty Start Date End Date Jocelyne Desai DO [address] [place] [address] [place] [address] PCP - General Internal Medicine 11/09/16 documented as of this encounter
--- OUTSIDE RECORDS SUMMARY | 2023-06-15 08:57 | External Medical Summary | Summary of Care ---
Author Name Unknown Organization [facility] Address [address] [facility] [place] [address] Phone [phone] Care Team Providers Care Ripening Room Attendant Name Role Phone DesiaElissaJocelyne Briggs DO Primary Care Provider + [phone] Reason for Visit * Reason Comments Dosage Adjustment Via Phone (anticoag Cl inic) Encounter Details Date Type Department Care Team (Latest Contact Info) Description 04/24/2023 6:30 AM EDT Anticoagulation Pharmacy Call Center 58[address] [place] [address] [facility] [address] [facility] [place] [address] Chronic atrial fibrillation (HCC)* Allergies No known active allergiesdocumented as of this encounter (statuses as of 04/24/2023) Medications Medication Sig Dispensed Refills Start Date [...] as of this encounter (statuses as of 04/24/2023) Active Problems Patient Care Coordination No te Formatting of this note migh t be different from the original. Good connectivity [facility] for wound care [phone] Televideo if needed. Problem Noted Date Diagnosed [...] up with podiatry,. 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 SPINAL STENOSIS-LUMBAR 09/23/2002 Vitamin D deficiency Cervical spinal stenosis documented as of this encounter (statuses as of 04/24/2023) Resolved Problems Problem Noted Date Diagnosed Date Resolved Date Depression, unspecified 11/09/2021 03/2 Depression, unspecified 11/09/202105/2022 Cellulitis of right leg 07/13/202105/2022 Last Assessment & Plan: Suspect this could be early/localized. Will treat with 7 days antibiotic. If pt cannot be reassess by Dr. Braxton office early next week will need [facility] provider recheck Multiple and open wound [...] 11/17/19 23 LUMBAGO 12/24/2002 05/09/2007 LOC PRIM [id number] 12/24/200208/13 DEGENERATIVE SKIN DISORD 12/24/2002 VERTEBRAL FX [...] as of this encounter (statuses as of 04/24/2023) Immunizations Name Administration Dates Next Due COVID-19 [...] as of this encounter Progress Notes * Madai Perera, concrete panel installer - 04/24/2023 11:22 AM EDT Contacts Type Contact Phone/Fax 04/24/2023 11:10 AM EDT Phone (Outgoing) Lg Cooley" (Self) [phone] (H) Spoke to Patient Subjective Patient Findings [...] communicated as noted by Pharmacist: Yes AMOS Jensen 04/24/2023, 11:22 AM * Estefania Palacios RPh - 04/24/2023 9:21 AM EDT Coumadin Clinic (region specific) Objective Current Warfarin Dose As of 04/24/2023 Warfarin maintenance plan: 1.5 mg (3 mg x 0.5) every Mon, Fri; 3 mg (3 mg x 1) all other days INR Result As of 04/24/2023 INR goal: 2.0-3.0 INR used for dosin.8 (04/20/2023) Assessment & Plan Warfarin Plan As of 04/24/2023 Full warfarin instructions: 1.5 mg every Mon, Fri; 3 mg all other days No change documented: Estefania Palacios RPh Next INR check: 05/11/2023 Repeat PT/INR in 3 week(s) Weekly dose: not changed Additional Dosing Information: Description [facility] Nurses; fax - [phone] ([facility]) Tech to contact patient with dose instructions as noted. Estefania Palacios RPh 04/24/2023, 9:21 AM documented in this encounter Plan of Treatment Upcoming Encounters Date Type Department Care Team (Late st Contact Info) Description 06/06/2023 2:30 PM EDT Office Visit [place] [address] [facility] [place] [phone] [place] [address] 06/08/2023 9:00 AM EDT Office Visit Cardiology [address] [place] [address] Greg Mckeon PA-C [address] [place] [address] 11/20/2023 2:00 PM EDT Office Visit Nephrology [address] [place] [address] Marycarmen Kowalski PA-C [address] [place] [address] 02/20/2024 12:30 PM EST Nurse Only Ancillary [address] [place] [address] [place], Nurse Annual [address] [place] [address] Scheduled Procedures Name Priority Associated Diagnoses Date/Ti [...] Additional history exists CKD PHOS USE SMARTSET 43141 11/17/2023 10/0 05/2022, 09/29/2021, 05/12/2021, Additional history exists Diabetic Foot Exam 11/17/2023 11/16/2022, 0 05/05/2021, 11/22/2017, Additional history exists CKD HGB USE SMARTSET 48003 01/18/202401/17, 01/17/2023, 11/16/2022, Additional history exists Depression [...] this encounter Medical Devices Implanted Type Area Surfacing Technician Device Identifier Shelf Expiration Date Model / Serial / Lot Shaft Fibula 6cm [id number] - [id number] Implanted:Qty: 1 on 09/05/2008 at [place] [facility] [place] Tissue - Human N/A: Spine Cervical MUSCULOSKELETAL TRANSPLANT FND 04/20/2010 [id number] / [id number] / Stent Eso Gw 22x70 [id number] - [id number] Implanted:Qty: 1 on 01/21/2008 at [place] [facility] [place] N/A: Esophagus [employer]US INC 04/12/2009 95382-117 / / [id number] Depuy Uniplate 32 Implanted:Qty: 1 on 09/05/2008 at [place] [facility] [place] N/A: Spine Cervical TAMMY & TAMMY DEPUY 1896-03-302 / / Depuy Uniplate Screw 14mm Implanted:Qty: 2 on 09/05/2008 at [place] [facility] [place] N/A: Spine Cervical TAMMY & TAMMY DEPUY 1896-07-017 / / Depuy Lordotic Bengal Cage Implanted:Qty: 1 on 05/07/2010 at [place] [facility] [place] N/A: Neck 1773--146 / [id number] / Plate Zach 3 Level Ti 54mm - [id number] Implanted:Qty: 1 on 05/07/2010 at [place] [facility] [place] N/A: Neck JNJ : DEPUY SPINE [id number] / / Screw Zach Const St Ti 14mm - [id number] Implanted:Qty: 4 on 05/07/2010 at OR [facility] [place] N/A: Neck JNJ : DEPUY SPINE [id number] / / Screw 3.5x14 Mntr Fa [id number] - [id number] Implanted:Qty: 8 on 05/07/2010 at OR [facility] [place] N/A: Spine Cervical JNJ : ETHICON CARDIOVATIONS [id number] / / Jarrell [id number] - [id number] Implanted:Qty: 1 on 05/07/2010 at [place] [facility] [place] N/A: Spine Cervical JNJ : ETHICON CARDIOVATIONS [id number] / / Screw Inner Mntr [id number] - [id number] Implanted:Qty: 8 on 05/07/2010 at [place] [facility] [place] N/A: Spine Cervical JNJ : ETHICON CARDIOVATIONS [id number] / / Envista Intraocular Lens Implanted:Qty: 1 on 03/10/2022 by Liang Marshall MD at OR [facility] Right: Eye BAUSCH & LOMB 08/13/2023 [id number] / [id number] / [id number] Envista Intraocular Lens Implanted:Qty: 1 on 03/24/2022 by Liang Marshall MD at OR [facility] Left: Eye BAUSCH & LOMB 07/13/2024 [id number] / [id number] / [id number] documented as of this encounter Visit Diagnoses Diagnosis Chronic atrial fibrillation (HCC)- Primary Atrial fibrillation documented in this encounter Advance Directives Documents on File Type Date Recorded Patient Sanitation Lead Torres ARREOLA 01/26/2021 [place] DERS FOR [...] the patient have Health Care Power of Slab Lifting Engineer? No Code Status History Code Status Date Activated Date Inactivated Comments No Code 03/10/2022 7:41 AM 03/10/2022 2:02 PM This order reflects the patients wishes and were consensually agreed upon. Question Answer Comments Discussion of Advance Directives occurred with: Patient Does the patient have a Living Will? No Does the patient have Health Care Power of Slab Lifting Engineer? No Full Code 05/07/2010 8:55 AM 05/11/2010 9:01 PM This order reflects the patients wishes and were consensually agreed upon. Question Answer Comments Discussion of Advance Directives occurred with: Patient Does the patient have a Living Will? No Does the patient have Health Care Power of Slab Lifting Engineer? No Full Code 05/07/2010 6:07 AM 05/07/2010 [...] the patient have Health Care Power of Slab Lifting Engineer? No Care Teams Ripening Room Attendant Relationship Specialty Start Date End Date Jocelyne Desai DO [address] [place] [address] [place] [address] PCP - General Internal Medicine 11/09/16 documented as of this encounter
--- OUTSIDE RECORDS SUMMARY | 2023-06-15 08:57 | External Medical Summary | Summary of Care ---
Author Name Unknown Organization [facility] Address [address] [facility] [place] [address] Phone [phone] Care Team Providers Care Commanding Officer Motorized Squad Name Role Phone DesaiElissaJocelynejohn Cunninghambritany ASHTON Primary Care Provider + [phone] Reason for Visit * Reason Comments Outpatient Testing Encounter Details Date Type Department Care Team (Late st Contact Info) Description 04/20/2023 1:00 PM EST Laboratory Laboratory [address] [place] [phone] , Specimen Drop Off [address] [place] [address] [facility] (current) use of anticoagulants; Chronic atrial fibrillation (HCC) Allergies No known active allergiesdocumented as of this encounter (statuses as of 04/20/2023) Medications Medication Sig Dispensed Refills Start Date [...] as of this encounter (statuses as of 04/20/2023) Active Problems Patient Care Coordination No te Formatting of this note migh t be different from the original. Good connectivity [facility] for wound care [phone] Televideo if needed. 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 He has significant history DM and PVD and recommended he still follow up with podiatry,. Letter in chart from [facility] podiatry they were unable to get in [...] 11/27/2018 H/O gastric bypass 11/27/2018 Overview: RYGB [facility] current use of 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 1 Status [...] ICD-10 update of inactive term PLATT RESEARCH OTHER*[id number] 02/20/2007 ADVANCE DIRECTIVE INFORMATION 01/19/2005 Overview: Yes, Patient instructed to provide copy of advance directive for provider to review and to be scanned into Electronic Medical Record No, Advance Directive brochure given to patient at prior appointment. SPINAL STENOSIS-LUMBAR 09/23/2002 Vitamin D deficiency Cervical spinal stenosis documented as of this encounter (statuses as of 04/20/2023) Resolved Problems Problem Noted Date Diagnosed Date Resolved Date Depression, unspecified 11/09/202104/14 Depression, unspecified 11/09/202105/2022 Cellulitis of right leg 07/13/202105/2022 Last Assessment & Plan: Suspect this could be early/localized. Will treat with 7 days antibiotic. If pt cannot be reassess by Dr. Braxton office early next week will need [facility] provider recheck Multiple and open [...] severity 05/31/201905/2022 CSA (central sleep apnea) 12/05/[address] 03/02/201811/13 Kidney disease, chronic, [...] 11/17/19 23 LUMBAGO 12/24/2002 05/09/2007 LOC PRIM [id number] 12/24/200208/13 DEGENERATIVE SKIN DISORD 12/24/2002 VERTEBRAL FX [...] as of this encounter (statuses as of 04/20/2023) Immunizations Name Administration Dates Next Due COVID-19 [...] Care Team (Late st Contact Info) Description 04/24/2023 6:30 AM EDT [facility] Call Center [phone] [place] [address] [facility] 58 60 [facility] [place] [address] 06/06/2023 2:30 PM EDT Office Visit Family Medicine [address] [place] [phone] [address] [place] [address] 06/08/2023 9:00 AM EDT Office Visit Cardiology [address] [place] [address] Greg Mckeon PA-C [address] [place] [address] 11/20/2023 2:00 PM EDT Office Visit Nephrology [address] [place] [address] ZeMarycarmen alan PA-C [address] [place] [address] 02/20/2024 12:30 PM EST Nurse Only Ancillary [address] [place] [address] [place], Nurse Annual [address] [place] [address] Pending Results Name Type Priority Associated Diagnoses Date /Time PT INR Lab Routine [facility] (current) use of anticoagulants Chronic atrial fibrillation (HCC) 04/20/2023 1:06 PM EST Scheduled Procedures Name Priority Associated Diagnoses Date/Ti me COLONOSCOPY FLEXIBLE PROXIMA L DIAGNOSTIC Recall Screening for colon cancer Health Maintenance Due Date Last Done Comments Cologuard 1997 Sigmoidoscopy 1997 Fecal Occult Blood Test 09/02/2009 09/02/2008, 05/04 Diabetic Eye Exam 12/30/2022 12/30/2021, , 12/28/2021, Additional history exists HbA1c 05/18/2023 11/16/2022, 10/15, 05/13/2022, Additional history exists GFR 08/24/2023 02/23/2023, 06/2022, 11/16/2022, Additional history exists Albumin/Creatinine Ratio 11/17/2023 023, 05/13/2022, 09/29/2021, Additional history exists CKD PHOS USE SMARTSET 86266 11/17/20230 05/2022, 09/29/2021, 05/12/2021, Additional history exists Diabetic Foot Exam 11/17/2023 11/16/2022, 0 05/05/2021, 11/22/2017, Additional history exists CKD HGB USE SMARTSET 31093 01/18/202401/17, 01/17/2023, 11/16/2022, Additional history exists Depression [...] this encounter Medical Devices Implanted Type Area Custom Wood Stair Builder Device Identifier Shelf Expiration Date Model / Serial / Lot Shaft Fibula 6cm [id number] - [id number] Implanted:Qty: 1 on 09/05/2008 at [place] [facility] Tissue - Human N/A: Spine Cervical MUSCULOSKELETAL TRANSPLANT FND 04/20/2010 [id number] / [id number] / Stent Eso Gw 22x70 [id number] - [id number] Implanted:Qty: 1 on 01/21/2008 at [place] [facility] N/A: Esophagus [employer] 04/12/2009 76989-898 / / [id number] Depuy Uniplate 32 Implanted:Qty: 1 on 09/05/2008 at [place] [facility] N/A: Spine Cervical TAMMY & TAMMY DEPUY 302 / / Depuy Uniplate Screw 14mm Implanted:Qty: 2 on 09/05/2008 at OR [facility] N/A: Spine Cervical TAMMY & TAMMY DEPUY 017 / / Depuy Lordotic Bengal Cage Implanted:Qty: 1 on 05/07/2010 at [place] [facility] N/A: Neck 1773-06-146 / [id number] / Plate Zach 3 Level Ti 54mm - [id number] Implanted:Qty: 1 on 05/07/2010 at [place] [facility] N/A: Neck JNJ : DEPUY SPINE [id number] / / Screw Zach Const St Ti 14mm - [id number] Implanted:Qty: 4 on 05/07/2010 at [place] [facility] N/A: Neck JNJ : DEPUY SPINE [id number] / / Screw 3.5x14 Mntr Fa [id number] - [id number] Implanted:Qty: 8 on 05/07/2010 at [place] [facility] N/A: Spine Cervical JNJ : ETHICON CARDIOVATIONS [id number] / / Jarrell [id number] - [id number] Implanted:Qty: 1 on 05/07/2010 at [place] [facility] N/A: Spine Cervical JNJ : ETHICON CARDIOVATIONS [id number] / / Screw Inner Mntr [id number] - [id number] Implanted:Qty: 8 on 05/07/2010 at [place] [facility] N/A: Spine Cervical JNJ : ETHICON CARDIOVATIONS [id number] / / Envista Intraocular Lens Implanted:Qty: 1 on 03/10/2022 by Liang Marshall MD at OR [facility] Right: Eye BAUSCH & LOMB 08/13/2023 [id number] / [id number] / [id number] Envista Intraocular Lens Implanted:Qty: 1 on 03/24/2022 by Liang Marshall MD at OR [facility] Left: Eye BAUSCH & LOMB 07/13/2024 [id number] / [id number] / [id number] documented as of this encounter Visit Diagnoses Diagnosis [facility] (current) use of anticoagulants Long-term (current) use of anticoagulants Chronic atrial fibrillation (HCC) Atrial fibrillation documented in this encounter Advance Directives Documents on File Type Date Recorded Patient Patient Services Rep Expl anation POLST 01/26/2021 [place] DERS [...] the patient have Health Care Power of Marketing Database Consultant? No Code Status History Code Status Date Activated Date Inactivated Comments No Code 03/10/2022 7:41 AM 03/10/2022 2:02 PM This order reflects the patients wishes and were consensually agreed upon. Question Answer Comments Discussion of Advance Directives occurred with: Patient Does the patient have a Living Will? No Does the patient have Health Care Power of Marketing Database Consultant? No Full Code 05/07/2010 8:55 AM 05/11/2010 9:01 PM This order reflects the patients wishes and were consensually agreed upon. Question Answer Comments Discussion of Advance Directives occurred with: Patient Does the patient have a Living Will? No Does the patient have Health Care Power of Marketing Database Consultant? No Full Code 05/07/2010 6:07 AM 05/07/2010 [...] the patient have Health Care Power of Marketing Database Consultant? No Care Teams Commanding Officer Motorized Squad Relationship Specialty Start Date End Date Jocelyne Desai DO [address] [place] [address] [place] [phone] PCP - General Internal Medicine 11/09/16 documented as of this encounter
--- OUTSIDE RECORDS SUMMARY | 2023-06-15 08:58 | External Medical Summary ---
Author Name Unknown Address Unknown Organization K01:LAB[facility]ATORY [facility] - [address] [place] [address] Laboratory Report Ordering Provider Test Date Status SILVIAARMAS 04/20/2023 13:06:02 Final Warfarin Therapy
INR: 2 .0-3.0 conventional anticoagulation
INR: 2.5- 3.5 high intensity anticoagulation Observation Date Value Abnormality Reference (Units ) Status PT 04/20/2023 13:06:02 30.1 Above high normal 11 .6-15.2 (seconds) Final INR 04/20/2023 13:06:02 2.8 Above high normal 0. 8-1.2 Final Performing Location LAB[facility]ORY [facility] - [address] [place] [address]
--- OUTSIDE RECORDS SUMMARY | 2023-06-15 08:58 | External Medical Summary | Summary of Care ---
Author Name Unknown Organization [facility] Address [address] [facility] [place] [address] Phone [phone] Care Team Providers Care Station Mechanic Helper Name Role Phone Jocelyne Desai DO Primary Care Provider + [phone] Encounter Details Date Type Department Care Team (Late st Contact Info) Description 04/05/2023 Population Health External Data Unspecified Department Allergies No known active allergiesdocumented as of this encounter (statuses as of 04/05/2023) Medications Medication Sig Dispensed Refills Start Date [...] every evening. 100 Tablet 3 10/20/2022 Active Ozempic (0.25 or 0.5 MG/DOSE) 2 MG/3ML Solution Pen-injector (Semaglutide(0.25 or 0.5MG/DOS)) inject 0.25 mg under the skin once a week x 4 weeks, then increase to 0.50 mg weekly thereafter. 9 mL 1 10/31/2022 Active Additional Information Patient taking differently: 0.5 mg QWEEK, inject 0.25 mg under the skin once a week x 4 weeks, then increase to 0.50 mg weekly thereafter., Reported on 01/10/2023 Metoprolol Succinate ER 25 MG Oral Tablet [...] EVERY DAY 100 Tablet 2 03/06/2023 Active documented as of this encounter (statuses as of 04/05/2023) Active Problems Patient Care Coordination No te Formatting of this note migh t be different from the original. Good connectivity [facility] for wound care [phone] Televideo if needed. 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 He has significant history DM and PVD and recommended he still follow up with podiatry,. Letter in chart from [facility] podiatry they were unable to get [...] 11/27/2018 H/O gastric bypass 11/27/2018 Overview: RYGB long-term current use of 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 1 Status [...] ICD-10 update of inactive term PLATT RESEARCH OTHER*[id number] 02/20/2007 ADVANCE DIRECTIVE INFORMATION 01/19/2005 Overview: Yes, Patient instructed to provide copy of advance directive for provider to review and to be scanned into Electronic Medical Record No, Advance Directive brochure given to patient at prior appointment. SPINAL STENOSIS-LUMBAR 09/23/2002 Vitamin D deficiency Cervical spinal stenosis documented as of this encounter (statuses as of 04/05/2023) Resolved Problems Problem Noted Date Diagnosed Date Resolved Date Depression, unspecified 11/09/2021 03/2 Depression, unspecified 11/09/202105/2022 Cellulitis of right leg 07/13/202105/2022 Last Assessment & Plan: Suspect this could be early/localized. Will treat with 7 days antibiotic. If pt cannot be reassess by Dr. Braxton office early next week will need [facility] provider recheck Multiple and open wound [...] 11/17/19 23 LUMBAGO 12/24/2002 05/09/2007 LOC PRIM [id number] 12/24/200208/13 DEGENERATIVE SKIN DISORD 12/24/2002 VERTEBRAL FX [...] as of this encounter (statuses as of 04/05/2023) Immunizations Name Administration Dates Next Due COVID-19 [...] 1:51 PM EST Sexual Orientation Straight 02/08/2021 1 :51 PM EST Job Start Date Occupation Industry Not on file Not on file Not on file documented as of this encounter Plan of Treatment Upcoming Encounters Date Type Department Care Team (Late st Contact Info) Description 04/24/2023 6:30 AM EDT Formerly [facility] Call Center [address] [place] [address] [facility] 58 60 [facility] [place] [address] 06/06/2023 2:30 PM EDT Office Visit Family Medicine [address] [place] [phone] [address] [place] [address] 06/08/2023 9:00 AM EDT Office Visit Cardiology [address] [place] [address] Greg Mckeon PARocael [address] [place] [address] 11/20/2023 2:00 PM EDT Office Visit Nephrology [address] [place] [address] ZemaitisMarycarmen PA-C [address] [facility] [address] 02/20/2024 12:30 PM EST Nurse Only Ancillary [address] [place] [address] [place], Nurse [address] [place] [address] Scheduled Procedures Name Priority Associated Diagnoses Date/Ti [...] Additional history exists CKD PHOS USE SMARTSET 13432 11/17/2023 10/0 05/2022, 09/29/2021, 05/12/2021, Additional history exists Diabetic Foot Exam 11/17/2023 11/16/2022, 0 05/05/2021, 11/22/2017, Additional history exists CKD HGB USE SMARTSET 84867 01/18/202401/17, 01/17/2023, 11/16/2022, Additional history exists Depression [...] this encounter Medical Devices Implanted Type Area Shagger Device Identifier Shelf Expiration Date Model / Serial / Lot Shaft Fibula 6cm [id number] - [id number] Implanted:Qty: 1 on 09/05/2008 [place] [facility] [place] - Human N/A: Spine Cervical MUSCULOSKELETAL TRANSPLANT FND 04/20/2010 [id number] / [id number] 0P / Stent Eso Gw 22x70 [id number] - [id number] Implanted:Qty: 1 on 01/21/2008 [place] [facility] [place] N/A: Esophagus ALVEOLUS INC 04/12/2009 [id number] / / [id number] Depuy Uniplate 32 Implanted:Qty: 1 on 09/05/2008 [place] [facility] [place] N/A: Spine Cervical TAMMY & TAMMY DEPUY 1897-02-302 / / Depuy Uniplate Screw 14mm Implanted:Qty: 2 on 09/05/2008 at [place] [facility] [place] N/A: Spine Cervical TAMMY & TAMMY DEPUY 1896--[id number] / / Depuy Lordotic Bengal Cage Implanted:Qty: 1 on 05/07/2010 at [place] [facility] [place] N/A: Neck 1773-06-146 / 1773-146 / Plate Zach 3 Level Ti 54mm - [id number] Implanted:Qty: 1 on 05/07/2010 [place] [facility] [place] N/A: Neck JNJ : DEPUY SPINE [id number] / / Screw Zach Const St Ti 14mm - [id number] Implanted:Qty: 4 on 05/07/2010 at [place] [facility] [place] N/A: Neck JNJ : DEPUY SPINE [id number] 14 / / Screw 3.5x14 Mntr Fa [id number] - [id number] Implanted:Qty: 8 on 05/07/2010 at [place] [facility] [place] N/A: Spine Cervical JNJ : ETHICON CARDIOVATIONS [id number] / / Jarrell [id number] - [id number] Implanted:Qty: 1 on 05/07/2010 at [place] [facility] [place] N/A: Spine Cervical JNJ : ETHICON CARDIOVATIONS [id number] / / Screw Inner Mntr [id number] - [id number] Implanted:Qty: 8 on 05/07/2010 [place] [facility] [place] N/A: Spine Cervical JNJ : ETHICON CARDIOVATIONS [id number] / / Envista Intraocular Lens Implanted:Qty: 1 on 03/10/2022 by Liang Marshall MD at OR [facility] Right: Eye BAUSCH & LOMB 08/13/2023 [id number] / [id number] / [id number] Envista Intraocular Lens Implanted:Qty: 1 on 03/24/2022 by Liang Marshall MD at OR [facility] Left: Eye BAUSCH & LOMB 07/13/2024 [id number] / [id number] / [id number] documented as of this encounter Advance Directives Documents on File Type Date Recorded Patient Resin Remover Torres ARREOLA 01/26/2021 [place] DERS FOR [...] the patient have Health Care Power of Sales Order Administrator? No Code Status History Code Status Date Activated Date Inactivated Comments No Code 03/10/2022 7:41 AM 03/10/2022 2:02 PM This order reflects the patients wishes and were consensually agreed upon. Question Answer Comments Discussion of Advance Directives occurred with: Patient Does the patient have a Living Will? No Does the patient have Health Care Power of Sales Order Administrator? No Full Code 05/07/2010 8:55 AM 05/11/2010 9:01 PM This order reflects the patients wishes and were consensually agreed upon. Question Answer Comments Discussion of Advance Directives occurred with: Patient Does the patient have a Living Will? No Does the patient have Health Care Power of Sales Order Administrator? No Full Code 05/07/2010 6:07 AM 05/07/2010 [...] the patient have Health Care Power of Sales Order Administrator? No Care Teams Station Mechanic Helper Relationship Specialty Start Date End Date Jocelyne Desai DO [address] [place] [address] [place] [address] PCP - General Internal Medicine 11/09/16 documented as of this encounter
--- OUTSIDE RECORDS SUMMARY | 2023-06-15 08:58 | External Medical Summary | Summary of Care ---
Author Name Unknown Organization [facility] [address] [facility] [address] Phone [phone] Care Team Providers Care In Store Banker Name Role Phone Silvia Armas DO Primary Care Provider [phone] Reason for Visit * Reason Comments Medication Refill Encounter Details Date Type Department Care Team (Late st Contact Info) Description 04/19/2023 Refill Family Medicine [address] [phone] Silvia Armas DO [address] [place] [address] [place] [address] Allergies No known active allergiesdocumented as of [...] Active Warfarin Sodium 3 MG Oral Tablet (Coumadin)Indicat ions:Chronic atrial fibrillation (HCC) TAKE 1 TO 2 TABLETS BY MOUTH DAILY, DIRECTED BY [facility] 180 Tablet 3 02/04/2023 4 Active Furosemide 20 MG Oral Tablet (Lasix)Indication s:Stage 3 chronic kidney disease, unspecified whether stage 3a or 3b CKD (HCC),Persistent proteinuria TAKE ONE TABLET BY MOUTH EVERY DAY NEEDED FOR SWELLING 100 Tablet 1 02/13/2023 4 Active Losartan Potassium 25 MG Oral Tablet [...] a week 9 mL 1 04/20/2023 Active Ozempic (0.25 or 0.5 MG/DOSE) 2 MG/3ML Solution Pen-injector (Semaglutide(0.25 or 0.5MG/DOS)) inject 0.25 mg under the skin once a week x 4 weeks, then increase to 0.50 mg weekly thereafter. 9 mL 1 10/31/2022 4 Discontinue d(Refill) documented as of this encounter (statuses as of 04/20/2023) Active Problems Patient Care Coordination No te Formatting of this note migh t be different from the original. Good connectivity [facility] for wound care [phone] Televideo if needed. Problem Noted Date Diagnosed [...] up with podiatry,. 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 Will treat with 7 days antibiotic. If pt cannot be reassess by Dr. Braxton office early next week will need [facility] provider recheck Multiple and open wound of [...] 11/17/19 23 LUMBAGO 12/24/2002 05/09/2007 LOC PRIM [id number] 12/24/200208/13 DEGENERATIVE SKIN DISORD 12/24/2002 VERTEBRAL FX [...] encounter Miscellaneous Notes * Telephone Encounter - Cherelle Peng RPh - 04/20/2023 8:06 AM ESTSigned Prescriptions: Disp Refills Ozempic (0.25 or 0.5 MG/DOSE) 2 MG/3ML Tameka*9 mL 1 Sig: Inject 0.5 mg under the skin once a weekAuthorizing Provider: SILVIA ARMASOrderlucina User: CHERELLE PENG documented in this encounter Plan of Treatment Upcoming Encounters Date Type Department Care Team (Late st Contact Info) Description 04/24/2023 6:30 AM EDT Anticoagulation Pharmacy Call Center [address] [facility] [place] [phone] [facility] [address] [facility] [place] [address] 06/06/2023 2:30 PM EDT Office Visit Family Medicine [address] [place] [phone] [place] [address] 06/08/2023 9:00 AM EDT Office Visit Cardiology [address] [place] [address] Greg Mckeon PA-C [address] [place] [address] 11/20/2023 2:00 PM EDT Office Visit Nephrology [address] [place] [address] ZeMarycarmen alan PA-C [address] [place] [address] 02/20/2024 12:30 PM EST Nurse Only Ancillary [address] [place] [address] [place], Nurse [address] [place] [address] Scheduled Procedures Name Priority Associated Diagnoses Date/Ti [...] Additional history exists CKD PHOS USE SMARTSET 62872 11/17/2023 10/0 05/2022, 09/29/2021, 05/12/2021, Additional history exists Diabetic Foot Exam 11/17/2023 11/16/2022, 0 05/05/2021, 11/22/2017, Additional history exists CKD HGB USE SMARTSET 04969 01/18/202401/17, 01/17/2023, 11/16/2022, Additional history exists Depression [...] this encounter Medical Devices Implanted Type Area Transmission Systems Operator Device Identifier Shelf Expiration Date Model / Serial / Lot Shaft Fibula 6cm [id number] - [id number] [place] [facility] [place] Human N/A: Spine Cervical MUSCULOSKELETAL TRANSPLANT FND 04/20/2010 [id number] / [id number] 0P / Stent Eso Gw 22x70 [id number] - [id number] Implanted:Qty: 1 on 01/21/[place] [facility] [place]/A: Esophagus [employer] 04/12/2009 45936-359 / / [id number] Depuy Uniplate 32 Implanted:Qty: 1 [place] 09/05/[place] [facility] [place]A: Spine Cervical TAMMY & TAMMY DEPUY 1897-302 / / Depuy Uniplate Screw 14mm Implanted:Qty: 2 on 09/05/[place] [facility] [place]/A: Spine Cervical TAMMY & TAMMY DEPUY 1897-017 / / Depuy Lordotic Bengal Cage Implanted:Qty: 1 on 05/07/2010 [place] [facility] [place]/A: Neck 1773-06-146 / 1773-06-146 / Plate Zach 3 Level Ti 54mm - [id number] Implanted:Qty: 1 on 05/07/2010 [place] [facility] [place]/A: Neck JNJ : DEPUY SPINE [id number] / / Screw Zach Const St Ti 14mm - [id number] Implanted:Qty: 4 on 05/07/2010 [place] [facility] [place]A: Neck JNJ : DEPUY SPINE [id number] / / Screw 3.5x14 Mntr Fa [id number] - [id number] Implanted:Qty: 8 on 05/07/2010 [place] [facility] [place]A: Spine Cervical JNJ : ETHICON [employer]ATIONS [id number] / / Jarrell [id number] - [id number] Implanted:Qty: 1 on 05/07/[place] [facility] [place]: Spine Cervical JNJ : ETHICON CARDIOVATIONS [id number] / / Screw Inner Mntr [id number] - [id number] Implanted:Qty: 8 on 05/07/2010 [place] [facility] [place]A: Spine Cervical JNJ : ETHICON CARDIOVATIONS [id number] / / Envista Intraocular Lens Implanted:Qty: 1 on 03/10/2022 by Liang Marshall MD at OR [facility] Right: Eye BAUSCH & LOMB 08/13/2023 [id number] / [id number] / [id number] Envista Intraocular Lens Implanted:Qty: 1 on 03/24/2022 by Liang Marshall MD at OR [facility] Left: Eye BAUSCH & LOMB 07/13/2024 [id number] / [id number] / [id number] documented as of this encounter Advance Directives Documents on File Type Date Recorded Patient Synthetic Cloth Binding Cutter Expl anation POLST 01/26/2021 [place] OR DERS FOR LIFE-SUSTAINING TREATMENT Latest Code Status on File Code Status Date Activated Date Inactivated Comments No Code 03/24/2022 7:56 AM 03/24/2022 1:57 PM This or wendy reflects the patients wishes and were consensually agreed upon. Question Answer Comments Discussion of Advance Directives occurred with: Patient Does the patient have a Living Will? No Does the patient have Health Care Power of Chief Engineer Production? No Code Status History Code Status Date Activated Date Inactivated Comments No Code 03/10/2022 7:41 AM 03/10/2022 2:02 PM This order reflects the patients wishes and were consensually agreed upon. Question Answer Comments Discussion of Advance Directives occurred with: Patient Does the patient have a Living Will? No Does the patient have Health Care Power of Chief Engineer Production? No Full Code 05/07/2010 8:55 AM 05/11/2010 9:01 PM This order reflects the patients wishes and were consensually agreed upon. Question Answer Comments Discussion of Advance Directives occurred with: Patient Does the patient have a Living Will? No Does the patient have Health Care Power of Chief Engineer Production? No Full Code 05/07/2010 6:07 AM 05/07/2010 [...] the patient have Health Care Power of Chief Engineer Production? No Care Teams In Store Banker Relationship Specialty Start Date End Date Silvia Armas DO [address] [place] [address] [place] [address] PCP - General Internal Medicine 11/09/16 documented as of this encounter
--- OUTSIDE RECORDS SUMMARY | 2023-06-15 08:58 | External Medical Summary | Summary of Care ---
Author Name Unknown Organization [facility] Address [address] [facility] [place] [address] Phone [phone] Care Team Providers Care Music Arranger Name Role Phone DesaiElissaJocelynejohn Cunninghambritany ASHTON Primary Care Provider + [phone] Reason for Visit * Reason Comments Outpatient Testing Encounter Details Date Type Department Care Team (Late st Contact Info) Description 04/20/2023 1:00 PM EST Laboratory Laboratory [address] [place] [phone] , Specimen Drop Off [address] [place] [address] long-term (current) use of anticoagulants; Chronic atrial fibrillation [...] be different from the original. Good connectivity [facility] for wound care [phone] Televideo if needed. 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 He has significant history DM and PVD and recommended he still follow up with podiatry,. Letter in chart from [facility] podiatry they were unable to get [...] ICD-10 update of inactive term PLATT RESEARCH OTHER*[id number] 02/20/2007 ADVANCE DIRECTIVE INFORMATION 01/19/2005 Overview: Yes, [...] [facility] office early next week will need [facility] provider recheck Multiple and open wound [...] 11/17/19 23 LUMBAGO 12/24/2002 05/09/2007 LOC PRIM [id number] 12/24/200208/13 DEGENERATIVE SKIN DISORD 12/24/2002 VERTEBRAL FX [...] Contact Info) Description 04/24/2023 6:30 AM EDT [facility] Call Center [address] [place] [address] [facility] [address] [facility] [place] [address] 06/06/2023 2:30 PM EDT Office Visit Family Medicine [address] [place] [phone] Jocelyne Des[address] [place] [address] 06/08/2023 9:00 AM EDT Office Visit Cardiology [address] [place] [address] Greg Mckeon PA-C [address] [place] [address] 11/20/2023 2:00 PM EDT Office Visit Nephrology [address] [place] [address] ZeMarycarmen alan PA-C [address] [place] [address] 02/20/2024 12:30 PM EST Nurse Only Ancillary [address] [place] [address] [place], Nurse Annual [address] [place] [address] Pending Results Name Type Priority Associated Diagnoses Date /Time PT INR Lab Routine long-term (current) use of anticoagulants Chronic atrial fibrillation [...] Additional history exists CKD PHOS USE SMARTSET 35745 11/17/20230 05/2022, 09/29/2021, 05/12/2021, Additional history exists Diabetic Foot Exam 11/17/2023 11/16/2022, 0 05/05/2021, 11/22/2017, Additional history exists CKD HGB USE SMARTSET 79851 01/18/202401/17, 01/17/2023, 11/16/2022, Additional history exists Depression [...] this encounter Medical Devices Implanted Type Area Security Operations Manager Device Identifier Shelf Expiration Date Model / Serial / Lot Shaft Fibula 6cm [id number] - [id number] Implanted:Qty: 1 on 09/05/2008 at [place] [facility] [place] Tissue - Human N/A: Spine Cervical MUSCULOSKELETAL TRANSPLANT FND 04/20/2010 [id number] / [id number] 0P / Stent Eso Gw 22x70 07747-105 - [id number] Implanted:Qty: 1 on 01/21/2008 at [place] [facility] [place] [place] N/A: Esophagus [employer] 04/12/2009 65792-074 / / [id number] Depuy Uniplate 32 Implanted:Qty: 1 on 09/05/2008 at [place] [facility] [place] N/A: Spine Cervical ATMMY & TAMMY DEPUY 302 / / Depuy Uniplate Screw 14mm Implanted:Qty: 2 on 09/05/2008 at [place] [facility] [place] N/A: Spine Cervical TAMMY & TAMMY DEPUY 017 / / Depuy Lordotic Bengal Cage Implanted:Qty: 1 on 05/07/2010 at [place] [facility] [place] N/A: Neck 1773-06-146 / 1773-146 / Plate Zach 3 Level Ti 54mm - [id number] Implanted:Qty: 1 on 05/07/2010 at [place] [facility] [place] N/A: Neck JNJ : DEPUY SPINE [id number] / / Screw Zach Const St Ti 14mm - [id number] Implanted:Qty: 4 on 05/07/2010 at [place] [facility] [place] N/A: Neck JNJ : DEPUY SPINE [id number] 14 / / Screw 3.5x14 Mntr Fa [id number] - [id number] Implanted:Qty: 8 on 05/07/2010 at [place] [facility] [place] N/A: Spine Cervical JNJ : ETHICON CARDIOVATIONS [id number] / / Jarrell 3.2x275xn [id number] - [id number] Implanted:Qty: 1 on 05/07/2010 at [place] [facility] [place] N/A: Spine Cervical JNJ : ETHICON CARDIOVATIONS [id number] / / Screw Inner Mntr [id number] - [id number] Implanted:Qty: 8 on 05/07/2010 at [place] [facility] [place] N/A: Spine Cervical JNJ : ETHICON CARDIOVATIONS [id number] / / Envista Intraocular Lens Implanted:Qty: 1 on 03/10/2022 by Liang Marshall MD at [place] [facility] Right: Eye BAUSCH & LOMB 08/13/2023 [id number] / [id number] / [id number] Envista Intraocular Lens Implanted:Qty: 1 on 03/24/2022 by Liang Marshall MD at [place] [facility] Left: Eye BAUSCH & LOMB 07/13/2024 [id number] / [id number] / [id number] documented as of this encounter Visit Diagnoses Diagnosis long-term (current) use of anticoagulants Long-term (current) use of anticoagulants Chronic atrial fibrillation (HCC) Atrial fibrillation documented in this encounter Advance Directives Documents on File Type Date Recorded Patient Recovery Advocate Expl anation POLST 01/26/2021 [place] OR DERS [...] the patient have Health Care Power of Harbor Police Launch Commander? No Code Status History Code Status Date Activated Date Inactivated Comments No Code 03/10/2022 7:41 AM 03/10/2022 2:02 PM This order reflects the patients wishes and were consensually agreed upon. Question Answer Comments Discussion of Advance Directives occurred with: Patient Does the patient have a Living Will? No Does the patient have Health Care Power of Harbor Police Launch Commander? No Full Code 05/07/2010 8:55 AM 05/11/2010 9:01 PM This order reflects the patients wishes and were consensually agreed upon. Question Answer Comments Discussion of Advance Directives occurred with: Patient Does the patient have a Living Will? No Does the patient have Health Care Power of [place] Police Launch Commander? No Full Code 05/07/2010 6:07 AM 05/07/2010 [...] the patient have Health Care Power of [place] Police Launch Commander? No Care Teams Music Arranger Relationship Specialty Start Date End Date Jocelyne Desai DO [address] [place] [address] [place] [phone] PCP - General Internal Medicine 11/09/16 documented as of this encounter
--- OUTSIDE RECORDS SUMMARY | 2023-06-15 08:59 | External Medical Summary | Summary of Care ---
Author Name Unknown Organization [facility] Address [address] [facility] [address] Phone [phone] Care Team Providers Care Form Tamper Operator Name Role Phone DesaiElissaJocelyne Briggs DO Primary Care Provider + [phone] Reason for Visit * Reason Comments Dosage Adjustment Via Phone (anticoag Cl inic) Encounter Details Date Type Department Care Team (Latest Contact Info) Description 04/03/2023 6:30 AM EST Anticoagulation Pharmacy Call Center [address] [place] [address] [facility] [address] [place] [address] Chronic atrial fibrillation (HCC)* Allergies No known active allergiesdocumented as of this encounter (statuses as of 04/03/2023) Medications Medication Sig Dispensed Refills Start Date [...] as of this encounter (statuses as of 04/03/2023) Active Problems Patient Care Coordination No te Formatting of this note migh t be different from the original. Good connectivity [facility] for wound care [phone] Televideo if needed. 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 He has significant history DM and PVD and recommended he still follow up with podiatry,. Letter in chart from [facility] podiatry they were unable to get [...] 11/27/2018 H/O gastric bypass 11/27/2018 Overview: RYGB detention current use of 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 1 Status [...] ICD-10 update of inactive term PLATT RESEARCH OTHER*[id number] 02/20/2007 ADVANCE DIRECTIVE INFORMATION 01/19/2005 Overview: Yes, Patient instructed to provide copy of advance directive for provider to review and to be scanned into Electronic Medical Record No, Advance Directive brochure given to patient at prior appointment. SPINAL STENOSIS-LUMBAR 09/23/2002 Vitamin D deficiency Cervical spinal stenosis documented as of this encounter (statuses as of 04/03/2023) Resolved Problems Problem Noted Date Diagnosed Date Resolved Date Depression, unspecified 11/09/2021/ Depression, unspecified 11/09/202105/2022 Cellulitis of right leg 07/13/202105/2022 Last Assessment & Plan: Suspect this could be early/localized. Will treat with 7 days antibiotic. If pt cannot be reassess by Dr. Braxton office early next week will need 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 - 04/03/2023 9:44 AM EST Contacts Type Contact Phone/Fax 04/03/2023 09:43 AM EST Phone (Outgoing) Lg Cooley" (Self) [phone] (H) Subjective Patient Findings Negatives: Signs/symptoms of thrombosis, Signs/symptoms of bleeding, Change in health, Change in alcohol use, Change in activity, Upcoming invasive procedure, Missed doses, Extra doses, Change in medications, Change in diet/appetite, Bruising Advised patient to contact Anticoagulation Clinic if any unusual bruising or bleeding, recent illness, changes in medication, or questions/concerns. PT/INR results, Coumadin dose instructions, and next PT/INR date communicated as noted by Pharmacist: Yes Thank you, Sona Joseph Pelota Maker Marcie Colon RP 04/03/2023, 9:44 AM * Jocelyne Whitmore [facility] - 04/03/2023 8:17 AM EST Coumadin Clinic (region specific) Objective Current Warfarin Dose As of 04/03/2023 Warfarin maintenance plan: 1.5 mg (3 mg x 0.5) every Mon, Fri; 3 mg (3 mg x 1) all other days INR Result As of 04/03/2023 INR goal: 2.0-3.0 INR used for dosin.6 (03/31/2023) Assessment & Plan Warfarin Plan As of 04/03/2023 Full warfarin instructions: 1.5 mg every Mon, Fri; 3 mg all other days No change documented: Jocelyne Whitmore RPh Next INR check: 04/21/2023 Repeat PT/INR in 3 week(s) Weekly dose: not changed Additional Dosing Information: Description [facility] Nurses; fax - [phone] ([facility]) Tech to contact patient with dose instructions as noted. Jocelyne Whitmore RPh 04/03/2023, 8:17 AM * Kajal Ellis, manager architecture - 03/31/2023 1:11 PM EST [facility] nurse Tonia calling in today's INR 2.6. Kajal Ellis MA Dive Master I [facility] ([facility]) (formerly Telepharmacy) documented in this encounter Plan of Treatment Upcoming Encounters Date Type Department Care Team (Late st Contact Info) Description 04/24/2023 6:30 AM EDT Anticoagulation Pharmacy Call Center [address] [place] [address] [facility], [facility] 58 60 [facility] [place] [address] 06/06/2023 2:30 PM EDT Office Visit Family Medicine [address] [place] [phone] [address] [place] [address] 06/08/2023 9:00 AM EDT Office Visit Cardiology [address] [place] [address] Greg Mckeon PA-C [address] [place] [address] 11/20/2023 2:00 PM EDT Office Visit Nephrology [address] [place] [address] Marycarmen Kowalski PA-C [address] [place] [address] 02/20/2024 12:30 PM EST Nurse Only Ancillary [address] [place] [address] [place], Nurse Annual [address] [place] [address] Scheduled Procedures Name Priority Associated Diagnoses Date/Ti [...] Additional history exists CKD PHOS USE SMARTSET 54914 11/17/2023 100 05/2022, 09/29/2021, 05/12/2021, Additional history exists Diabetic Foot Exam 11/17/2023 11/16/2022, 0 05/05/2021, 11/22/2017, Additional history exists CKD HGB USE SMARTSET 69109 01/18/202401/17, 01/17/2023, 11/16/2022, Additional history exists Depression [...] this encounter Medical Devices Implanted Type Area Planner Scheduler Device Identifier Shelf Expiration Date Model / Serial / Lot Shaft Fibula 6cm [id number] - [id number] Implanted:Qty: 1 on 09/05/2008 [place] [facility] [place] - Human N/A: Spine Cervical MUSCULOSKELETAL TRANSPLANT FND 04/20/2010 [id number] / [id number] / Stent Eso Gw 22x70 [id number] - [id number] Implanted:Qty: 1 on 01/21/2008 at [place] [facility] [place] N/A: Esophagus [employer] 04/12/2009 [id number] / / [id number] Depuy Uniplate 32 Implanted:Qty: 1 on 09/05/2008 [...] Plate Zach 3 Level Ti 54mm - [id number] Implanted:Qty: 1 on 05/07/2010 at [place] [facility] [place] N/A: Neck JNJ : DEPUY SPINE [id number] / / Screw Zach Const St Ti 14mm - [id number] Implanted:Qty: 4 on 05/07/2010 at [place] [facility] [place] N/A: Neck JNJ : DEPUY SPINE [id number] / / Screw 3.5x14 Mntr Fa [id number] - [id number] Implanted:Qty: 8 on 05/07/2010 at [place] [facility] [place] N/A: Spine Cervical JNJ : ETH[employer]ON [employer]ATIONS [id number] / / Jarrell 3.5d417gn [id number] - [id number] Implanted:Qty: 1 on 05/07/2010 at [place] [facility] [place] N/A: Spine Cervical JNJ : ETHICON CARDIOVATIONS [id number] / / Screw Inner Mntr [id number] - [id number] Implanted:Qty: 8 on 05/07/2010 at [place] [facility] [place] N/A: Spine Cervical JNJ : ETHICON CARDI[employer]ATIONS [id number] / / Envista Intraocular Lens Implanted:Qty: 1 on 03/10/2022 by Liang Marshall MD at OR [facility] Right: Eye [employer]USCH [employer] LOMB 08/13/2023 [id number] / [id number] / [id number] Envista Intraocular Lens Implanted:Qty: 1 on 03/24/2022 by Liang Marshall MD at OR [facility] Left: Eye BAUSCH & LOMB 07/13/2024 [id number] / [id number] / [id number] documented as of this encounter Procedures Procedure Name Priority Date/Time Associated Diagnosis Comments OUTSIDE LAB-PT/INR Routine 03/31/2023 documented in this encounter Results * OUTSIDE LAB-PT/INR (03/31/2023) INR-OUTSIDE LAB 2.6 History Per Patient LABORATORY documented in this encounter Visit Diagnoses Diagnosis Chronic atrial fibrillation (HCC)- Primary Atrial fibrillation documented in this encounter Advance Directives Documents on File Type Date Recorded Patient Enamel Applier Expl anation POLST 01/26/2021 [place] OR DERS FOR LIFE-SUSTAINING TREATMENT Latest Code Status on File Code Status Date Activated Date Inactivated Comments No Code 03/24/2022 7:56 AM 03/24/2022 1:57 PM This or wendy reflects the patients wishes and were consensually agreed upon. Question Answer Comments Discussion of Advance Directives occurred with: Patient Does the patient have a Living Will? No Does the patient have Health Care Power of Jewelry Dipper? No Code Status History Code Status Date Activated Date Inactivated Comments No Code 03/10/2022 7:41 AM 03/10/2022 2:02 PM This order reflects the patients wishes and were consensually agreed upon. Question Answer Comments Discussion of Advance Directives occurred with: Patient Does the patient have a Living Will? No Does the patient have Health Care Power of Jewelry Dipper? No Full Code 05/07/2010 8:55 AM 05/11/2010 9:01 PM This order reflects the patients wishes and were consensually agreed upon. Question Answer Comments Discussion of Advance Directives occurred with: Patient Does the patient have a Living Will? No Does the patient have Health Care Power of Jewelry Dipper? No Full Code 05/07/2010 6:07 AM 05/07/2010 [...] the patient have Health Care Power of Jewelry Dipper? No Care Teams Form Tamper Operator Relationship Specialty Start Date End Date Jocelyne Desai DO [address] [place] [address] [place] [address] PCP - General Internal Medicine 11/09/16 documented as of this encounter
--- OUTSIDE RECORDS SUMMARY | 2023-06-15 08:59 | External Medical Summary | Summary of Care ---
Author Name Unknown Organization [facility] Address [address] [facility] [place] [address] Phone [phone] Care Team Providers Care Equipment Cleaner Name Role Phone DesaiElissaJocelyne Briggs DO Primary Care Provider + [phone] Reason for Visit * Reason Comments Dosage Adjustment Via Phone (anticoag Cl inic) Encounter Details Date Type Department Care Team (Latest Contact Info) Description 03/20/2023 6:30 AM EST Anticoagulation Pharmacy Call Center [address] [facility] [place] [address] [facility] [address] [place] [address] Chronic atrial fibrillation (HCC)* Allergies No known active allergiesdocumented as of this encounter (statuses as of 03/20/2023) Medications Medication Sig Dispensed Refills Start Date [...] as of this encounter (statuses as of 03/20/2023) Active Problems Patient Care Coordination No te Formatting of this note migh t be different from the original. Good connectivity [facility] for wound care [phone] Televideo if needed. Problem Noted Date Diagnosed [...] up with podiatry,. 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 SPINAL STENOSIS-LUMBAR 09/23/2002 Vitamin D deficiency Cervical spinal stenosis documented as of this encounter (statuses as of 03/20/2023) Resolved Problems Problem Noted Date Diagnosed Date Resolved Date Depression, unspecified 11/09/2021/ Depression, unspecified 11/09/202105/2022 Cellulitis of right leg 07/13/202105/2022 Last Assessment & Plan: Suspect this could be early/localized. Will treat with 7 days antibiotic. If pt cannot be reassess by Dr. Braxton office early next week will need [facility] provider recheck Multiple and open [...] 02/27/2003 11/17/19 LUMBAGO 12/24/2002 05/09/2007 LOC PRIM [id number]-[id number] 12/24/200208/13 DEGENERATIVE SKIN DISORD 12/24/2002 VERTEBRAL FX [...] as of this encounter (statuses as of 03/20/2023) Immunizations Name Administration Dates Next Due COVID-19 [...] as of this encounter Progress Notes * Estefania Armas CPhT - 03/20/2023 10:57 AM EST Contacts Type Contact Phone/Fax 03/20/2023 10:55 AM EST Phone (Outgoing) YasirLg "Akshat" (Self) [phone] (H) Subjective Patient Findings Negatives: Signs/symptoms of bleeding, Change in health, Change in activity, Upcoming invasive procedure, Missed doses, Extra doses, Change in medications, Change in diet/appetite, Bruising Advised patient to contact Anticoagulation Clinic if any unusual bruising or bleeding, recent illness, changes in medication, or questions/concerns. PT/INR results, Coumadin dose instructions, and next PT/INR date communicated as noted by Pharmacist: Yes Estefania Amras CPhT 03/20/2023, 10:57 AM * Sofie Danielle [facility] - 03/20/2023 8:57 AM EST Images from the original note were not included. Lg Cooley (52) Coumadin Clinic (region specific) Objective Current Warfarin Dose As of 03/20/2023 Warfarin maintenance plan: 1.5 mg (3 mg x 0.5) every Mon, Fri; 3 mg (3 mg x 1) all other days INR Result As of 03/20/2023 INR goal: 2.0-3.0 INR used for dosin.08 (03/17/2023) Assessment & Plan Warfarin Plan As of 03/20/2023 Full warfarin instructions: 03/20: Hold; Otherwise 1.5 mg every Mon, Fri; 3 mg all other days Next INR check: 03/31/2023 Repeat PT/INR in 2 week(s) Weekly dose: not changed Additional Dosing Information: Description [facility] Nurses; fax - [phone] ([facility]) Pacemaker Gen Change 01/18/23- Dr. Carpenter would like INR 2-2.5 Tech to contact patient with dose instructions as noted. Sofie Danielle RPh 03/20/2023, 8:57 AM * Korin Meléndez PHARM Tech - 03/20/2023 8:34 AM EST Received verbal result from @ [facility]. Pts INR was drawn on 03/17/23. INR = 3.08. Report is being faxed. Thank you, Korin Meléndez Economics Teacher [facility] ([facility]PS) (formerly Telepharmacy) [phone] 03/20/2023,8:35 AM documented in this encounter Plan of Treatment Upcoming Encounters Date Type Department Care Team (Late st Contact Info) Description 06/06/2023 2:30 PM EDT Office Visit Family Medicine [address] [place] [phone] [address] [place] [address] 06/08/2023 9:00 AM EDT Office Visit Cardiology [address] [place] [address] Greg Mckeon PA-C [address] [place] [address] 11/20/2023 2:00 PM EDT Office Visit Nephrology [address] [place] [address] Marycarmen Kowalski PA-C [address] [place] [address] 02/20/2024 12:30 PM EST Nurse Only Ancillary [address] [place] [address] [place], Nurse [address] [place] [address] Scheduled Procedures Name Priority Associated Diagnoses Date/Ti [...] Additional history exists CKD PHOS USE SMARTSET 78111 11/17/202305/2022, 09/29/2021, 05/12/2021, Additional history exists Diabetic Foot Exam 11/17/2023 11/16/2022, 0 05/05/2021, 11/22/2017, Additional history exists CKD HGB USE SMARTSET 81848 01/18/202401/17, 01/17/2023, 11/16/2022, Additional history exists Depression [...] this encounter Medical Devices Implanted Type Area Ball Sorter Device Identifier Shelf Expiration Date Model / Serial / Lot Shaft Fibula 6cm [id number] - [id number] Implanted:Qty: 1 on 09/05/2008 at [place] [facility] [place] Tissue - Human N/A: Spine Cervical MUSCULOSKELETAL TRANSPLANT FND 04/20/2010 [id number] / [id number] / Stent Eso Gw 22x70 [id number] - [id number] Implanted:Qty: 1 on 01/21/2008 at [facility] N/A: Esophagus [employer] INC 04/12/2009 [id number] / / [id number] Depuy Uniplate Screw 14mm Implanted:Qty: 2 on 09/05/2008 at [place] [facility] [place] N/A: Spine Cervical [employer] DEPUY [id number] / / Screw Inner Mntr [id number] - [id number] Implanted:Qty: 8 on 05/07/2010 at [place] [facility] [place] N/A: Spine Cervical JNJ : ETHICON CARDIOVATIONS [id number] / / Envista Intraocular Lens Implanted:Qty: 1 on 03/10/2022 by Linag Marshall MD at OR [facility] Right: Eye BAUSCH & LOMB 08/13/2023 [id number] / [id number] / [id number] Envista Intraocular Lens Implanted:Qty: 1 on 03/24/2022 by Liang Marshall MD at OR [facility] Left: Eye BAUSCH & LOMB 07/13/2024 [id number] / [id number] / [id number] documented as of this encounter Procedures Procedure Name Priority Date/Time Associated Diagnosis Comments OUTSIDE LAB-PT/INR Routine 03/17/2023 documented in this encounter Results * OUTSIDE LAB-PT/INR (03/17/2023) INR-OUTSIDE LAB 3.08 History Per Patient LABORATORY documented in this encounter Visit Diagnoses Diagnosis Chronic atrial fibrillation (HCC)- Primary Atrial fibrillation documented in this encounter Advance Directives Documents on File Type Date Recorded Patient Zyglo Inspector Expl anation POLST 01/26/2021 [place] OR DERS [...] the patient have Health Care Power of Field Staff Manager? No Code Status History Code Status Date Activated Date Inactivated Comments No Code 03/10/2022 7:41 AM 03/10/2022 2:02 PM This order reflects the patients wishes and were consensually agreed upon. Question Answer Comments Discussion of Advance Directives occurred with: Patient Does the patient have a Living Will? No Does the patient have Health Care Power of Field Staff Manager? No Full Code 05/07/2010 8:55 AM 05/11/2010 9:01 PM This order reflects the patients wishes and were consensually agreed upon. Question Answer Comments Discussion of Advance Directives occurred with: Patient Does the patient have a Living Will? No Does the patient have Health Care Power of Field Staff Manager? No Full Code 05/07/2010 6:07 AM [...] the patient have Health Care Power of Field Staff Manager? No Care Teams Equipment Cleaner Relationship Specialty Start Date End Date Jocelyne Desai DO [address] [place] [address] [place] [address] PCP - General Internal Medicine 11/09/16 documented as of this encounter
--- OUTSIDE RECORDS SUMMARY | 2023-06-15 08:59 | External Medical Summary | Summary of Care ---
Author Name Unknown Organization [facility] Address [address] [facility] [place] [address] Phone [phone] Care Team Providers Care Emergency Medicine Name Role Phone Jocelyne Desai DO Primary Care Provider + [phone] Encounter Details Date Type Department Care Team (Late st Contact Info) Description 03/21/2023 Population Health External Data Unspecified Department Allergies No known active allergiesdocumented as of this encounter (statuses as of 03/21/2023) Medications Medication Sig Dispensed Refills Start Date [...] as of this encounter (statuses as of 03/21/2023) Active Problems Patient Care Coordination No te Formatting of this note migh t be different from the original. Good connectivity [facility] for wound care [phone] Televideo if needed. Problem Noted Date Diagnosed Date History of [place] (myocardial infarction) 11/09/2021 Trigger ring finger of [...] Letter in chart from [facility] podiatry they were unable to get [...] ICD-10 update of inactive term PLATT RESEARCH OTHER*[id number] 02/20/2007 ADVANCE DIRECTIVE INFORMATION 01/19/2005 Overview: Yes, Patient instructed to provide copy of advance directive for provider to review and to be scanned into Electronic Medical Record No, Advance Directive brochure given to patient at prior appointment. SPINAL STENOSIS-LUMBAR 09/23/2002 Vitamin D deficiency Cervical spinal stenosis documented as of this encounter (statuses as of 03/21/2023) Resolved Problems Problem Noted Date Diagnosed Date Resolved Date Depression, unspecified 11/09/2021 03/2 Depression, unspecified 11/09/202105/2022 Cellulitis of right leg 07/13/202105/2022 Last Assessment & Plan: Suspect this could be early/localized. Will treat with 7 days antibiotic. If pt cannot be reassess by Dr. Braxton office early next week will need [facility] provider recheck Multiple and open [...] 11/17/19 23 LUMBAGO 12/24/2002 05/09/2007 LOC PRIM [id number] 12/24/200208/13 DEGENERATIVE SKIN DISORD 12/24/2002 VERTEBRAL FX [...] as of this encounter (statuses as of 03/21/2023) Immunizations Name Administration Dates Next Due COVID-19 [...] Care Team (Late st Contact Info) Description 04/03/2023 6:30 AM EST Anticoagulation Pharmacy Call Center [address] [place] [address] [facility] 58 60 [facility] [place] [address] 06/06/2023 2:30 PM EDT Office Visit Family Medicine [address] [place] [phone] Jocelyne Desai[address] [place] [address] 06/08/2023 9:00 AM EDT Office Visit Cardiology [address] [place] [address] Greg Mckeon PA-C [address] [place] [address] 11/20/2023 2:00 PM EDT Office Visit Nephrology [address] [place] [address] ZemaMarycarmen lindsey PA-C [address] [facility] [address] 02/20/2024 12:30 PM EST Nurse Only Ancillary [address] [place] [address] [place], Nurse [address] [place] [address] Scheduled Procedures Name Priority Associated Diagnoses Date/Ti [...] Additional history exists CKD PHOS USE SMARTSET 97500 11/17/2023 10/0 05/2022, 09/29/2021, 05/12/2021, Additional history exists Diabetic Foot Exam 11/17/2023 11/16/2022, 0 05/05/2021, 11/22/2017, Additional history exists CKD HGB USE SMARTSET 38744 01/18/202401/17, 01/17/2023, 11/16/2022, Additional history exists Depression [...] this encounter Medical Devices Implanted Type Area Hand Stripper Device Identifier Shelf Expiration Date Model / Serial / Lot Shaft Fibula 6cm [id number] - [id number] Implanted:Qty: 1 on 09/05/2008 at [place] [facility] [place] Tissue - Human N/A: Spine Cervical MUSCULOSKELETAL TRANSPLANT FND 04/20/2010 [id number] / [id number] / Stent Eso Gw 22x70 [id number] - [id number] Implanted:Qty: 1 on 01/21/2008 at OR [facility] [place] [facility] N/A: Esophagus [employer] 04/12/2009 [id number] / / [id number] Depuy Uniplate Screw 14mm Implanted:Qty: 2 on 09/05/2008 at OR [facility] N/A: Spine Cervical [employer] 1897-06-017 / / Screw Inner Mntr [id number] - [id number] Implanted:Qty: 8 on 05/07/2010 at [place] [facility] [place] N/A: Spine Cervical JNJ : [employer] [id number] / / Envista Intraocular Lens Implanted:Qty: 1 on 03/10/2022 by Liang Marshall MD at OR [facility] Right: Eye BAUSCH & LOMB 08/13/2023 [id number] / [id number] / [id number] Envista Intraocular Lens Implanted:Qty: 1 on 03/24/2022 by Liang Marshall MD at OR [facility] Left: Eye BAUSCH & LOMB 07/13/2024 [id number] / [id number] / [id number] documented as of this encounter Advance Directives Documents on File Type Date Recorded Patient Show Design Supervisor Expl anation POLST 01/26/2021 [place] DERS FOR LIFE-SUSTAINING TREATMENT Latest Code Status on File Code Status Date Activated Date Inactivated Comments No Code 03/24/2022 7:56 AM 03/24/2022 1:57 PM This or wendy reflects the patients wishes and were consensually agreed upon. Question Answer Comments Discussion of Advance Directives occurred with: Patient Does the patient have a Living Will? No Does the patient have Health Care Power of Metal Painter? No Code Status History Code Status Date Activated Date Inactivated Comments No Code 03/10/2022 7:41 AM 03/10/2022 2:02 PM This order reflects the patients wishes and were consensually agreed upon. Question Answer Comments Discussion of Advance Directives occurred with: Patient Does the patient have a Living Will? No Does the patient have Health Care Power of Metal Painter? No Full Code 05/07/2010 8:55 AM 05/11/2010 9:01 PM This order reflects the patients wishes and were consensually agreed upon. Question Answer Comments Discussion of Advance Directives occurred with: Patient Does the patient have a Living Will? No Does the patient have Health Care Power of Metal Painter? No Full Code 05/07/2010 6:07 AM 05/07/2010 [...] the patient have Health Care Power of Metal Painter? No Care Teams Emergency Medicine Relationship Specialty Start Date End Date Jocelyne Desai DO [address] [place] [address] [place] [address] PCP - General Internal Medicine 11/09/16 documented as of this encounter
--- OUTSIDE RECORDS SUMMARY | 2023-06-15 09:00 | External Medical Summary | Summary of Care ---
Author Name Unknown Organization [facility] Address [address] [facility] [place] [address] Phone [phone] Care Team Providers Care Beef Skinner Name Role Phone Jocelyne Desai DO Primary Care Provider + [phone] Encounter Details Date Type Department Care Team (Late st Contact Info) Description 03/14/2023 Population Health External Data Unspecified Department Allergies No known active allergiesdocumented as of this encounter (statuses as of 03/14/2023) Medications Medication Sig Dispensed Refills Start Date [...] as of this encounter (statuses as of 03/14/2023) Active Problems Patient Care Coordination No te Formatting of this note migh t be different from the original. Good connectivity [facility] for wound care [phone] Televideo if needed. 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 He has significant history DM and PVD and recommended he still follow up with podiatry,. Letter in chart from [facility] podiatry they were unable to [...] 11/27/2018 H/O gastric bypass 11/27/2018 Overview: RYGB custodial current use of 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 1 Status [...] ICD-10 update of inactive term PLATT RESEARCH OTHER*[id number] 02/20/2007 ADVANCE DIRECTIVE INFORMATION 01/19/2005 Overview: Yes, Patient instructed to provide copy of advance directive for provider to review and to be scanned into Electronic Medical Record No, Advance Directive brochure given to patient at prior appointment. SPINAL STENOSIS-LUMBAR 09/23/2002 Vitamin D deficiency Cervical spinal stenosis documented as of this encounter (statuses as of 03/14/2023) Resolved Problems Problem Noted Date Diagnosed Date Resolved Date Depression, unspecified 11/09/2021 03/2 Depression, unspecified 11/09/202105/2022 Cellulitis of right leg 07/13/202105/2022 Last Assessment & Plan: Suspect this could be early/localized. Will treat with 7 days antibiotic. If pt cannot be reassess by Dr. Braxton office early next week will need [facility] provider recheck Multiple and open [...] 11/17/19 23 LUMBAGO 12/24/2002 05/09/2007 LOC PRIM [id number] 12/24/200208/13 DEGENERATIVE SKIN DISORD 12/24/2002 VERTEBRAL FX [...] as of this encounter (statuses as of 03/14/2023) Immunizations Name Administration Dates Next Due COVID-19 [...] Care Team (Late st Contact Info) Description 03/20/2023 6:30 AM EST Anticoagulation Pharmacy Call Center [address] [place] [address] [facility] 58 60 [facility] [place] [address] 06/06/2023 2:30 PM EDT Office Visit Family Medicine [address] [place] [phone] Jocelyne Desai[address] [place] [address] 06/08/2023 9:00 AM EDT Office Visit Cardiology [address] [place] [address] Greg Mckeon PA-C [address] [place] [address] 11/20/2023 2:00 PM EDT Office Visit Nephrology [address] [place] [address] ZemaMarycarmen lindsey PA-C [address] [facility] [address] 02/20/2024 12:30 PM EST Nurse Only Ancillary [address] [place] [address] [place], Nurse [address] [place] [address] Scheduled Procedures Name Priority Associated Diagnoses Date/Ti [...] Additional history exists CKD PHOS USE SMARTSET 14277 11/17/2023 10/0 05/2022, 09/29/2021, 05/12/2021, Additional history exists Diabetic Foot Exam 11/17/2023 11/16/2022, 0 05/05/2021, 11/22/2017, Additional history exists CKD HGB USE SMARTSET 10666 01/18/202401/17, 01/17/2023, 11/16/2022, Additional history exists Depression [...] this encounter Medical Devices Implanted Type Area 3Rd Mate Device Identifier Shelf Expiration Date Model / Serial / Lot Shaft Fibula 6cm [id number] - [id number] Implanted:Qty: 1 [place] [facility] [place] - Human N/A: Spine Cervical MUSCULOSKELETAL TRANSPLANT FND 04/20/2010 [id number] / [id number] 0P / Stent Eso Gw 22x70 [id number] - [id number] Implanted:Qty: 1 on 01[place]21/2008 [place] [facility] [place]/A: Esophagus [employer] 04/12/2009 [id number] / / [id number] Depuy Uniplate Screw 14mm Implanted:Qty: 2 on 09/05/2008 [place] [facility] [place]/A: Spine Cervical TAMMY [employer] TAMMY DEPUY 1897-06-017 / / Screw Inner Mntr [id number] - [id number] Implanted:Qty: 8 on 05/07/2010 [place] [facility] [place]A: Spine Cervical JNJ : [employer] [id number] / / Envista Intraocular Lens Implanted:Qty: 1 on 03/10/2022 by Liang Marshall MD at OR [facility] Right: Eye BAUSCH & LOMB 08/13/2023 [id number] / [id number] / [id number] Envista Intraocular Lens Implanted:Qty: 1 on 03/24/2022 by Liang Marshall MD at OR [facility] Left: Eye BAUSCH & LOMB 07/13/2024 [id number] / [id number] / [id number] documented as of this encounter Advance Directives Documents on File Type Date Recorded 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 No Code Status History Code Status Date Activated Date Inactivated Comments No Code 03/10/2022 7:41 AM 03/10/2022 2:02 PM This order reflects the patients wishes and were consensually agreed upon. Question Answer Comments Discussion of Advance Directives occurred with: Patient Does the patient have a Living Will? No Does the patient have Health Care Power of Stripper Apprentice? No Full Code 05/07/2010 8:55 AM 05/11/2010 9:01 PM This order reflects the patients wishes and were consensually agreed upon. Question Answer Comments Discussion of Advance Directives occurred with: Patient Does the patient have a Living Will? No Does the patient have Health Care Power of Stripper Apprentice? No Full Code 05/07/2010 6:07 AM 05/07/2010 [...] the patient have Health Care Power of Stripper Apprentice? No Care Teams Beef Skinner Relationship Specialty Start Date End Date Jocelyne Desai DO [address] [place] [address] [place] [address] PCP - General Internal Medicine 11/09/16 documented as of this encounter
--- OUTSIDE RECORDS SUMMARY | 2023-06-15 09:00 | External Medical Summary | Summary of Care ---
Author Name Unknown Organization [facility] Address [address] [facility] [place] [address] Phone [phone] Care Team Providers Care Wool Tamper Name Role Phone Lloyd Jocelyne Briggs Primary Care Provider [phone] Encounter Details Date Type Department Care Team (Late st Contact Info) Description 03/17/2023 Result Scan Unspecified Department Estefania Palacios, [facility] [address] [place] [address] <No scans attached> Allergies No known active [...] from the original. Good connectivity [facility] for wound care [phone] Televideo if needed. 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 He has significant history DM and PVD and recommended he still follow up with podiatry,. Letter in chart from [facility] podiatry they were unable to get [...] 11/27/2018 H/O gastric bypass 11/27/2018 Overview: RYGB correction current use of 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 1 Status [...] ICD-10 update of inactive term PLATT RESEARCH OTHER*[id number] 02/20/2007 ADVANCE DIRECTIVE INFORMATION 01/19/2005 Overview: Yes, [...] [facility] office early next week will need [facility] provider recheck Multiple and open [...] 02/27/2003 11/17/19 LUMBAGO 12/24/2002 05/09/2007 LOC PRIM [id number] 12/24/200208/13 DEGENERATIVE SKIN DISORD 12/24/2002 VERTEBRAL FX [...] MCG/0.3 mL, 12 YRS AND ABOVE, IM (Infermedica-Comirnaty) 11/16/2022 Covid-19, Mrna, Lnp-s, Pf, B ivalent, 30 Mcg, IM, 12 yrs and above (Pfizer) 11/16/2021 Diptheria/Tetanus (Adult) 12/01/2018 Hepatitis B, 20+ yrs 11/11/2002,06/10/2002,03/31 /2003 Pneumococcal Conjugate Vacc, 13 Valent (Prevnar) 11/01/2017 [...] 2:30 PM EDT Office Visit Family Medicine [address] [place] [phone] [place] [address] 06/08/2023 9:00 AM EDT Office Visit Cardiology [address] [place] [address] Greg Mckeon PA-C [address] [place] [address] 11/20/2023 2:00 PM EDT Office Visit Nephrology [address] [place] [address] Marycarmen Kowalski PA-C [address] [place] [address] 02/20/2024 12:30 PM EST Nurse Only Ancillary [address] [place] [address] [place], Nurse Annual [address] [place] [address] Scheduled Procedures Name Priority Associated Diagnoses Date/Ti [...] Additional history exists CKD PHOS USE SMARTSET 80865 11/17/2023 10/0 05/2022, 09/29/2021, 05/12/2021, Additional history exists Diabetic Foot Exam 11/17/2023 11/16/2022, 0 05/05/2021, 11/22/2017, Additional history exists CKD HGB USE SMARTSET 49260 01/18/202401/17, 01/17/2023, 11/16/2022, Additional history exists Depression [...] this encounter Medical Devices Implanted Type Area Cytologist Device Identifier Shelf Expiration Date Model / Serial / Lot Shaft Fibula 6cm [id number] - [id number] Implanted:Qty: 1 on 09/05/2008 at [place] [facility] [place] Tissue - Human N/A: Spine Cervical MUSCULOSKELETAL TRANSPLANT FND 04/20/2010 [id number] / [id number] 0P / Stent Eso Gw 22x70 [id number] - [id number] Implanted:Qty: 1 on 01/21/2008 at [place] [facility] [place] N/A: Esophagus [employer] 04/12/2009 [id number] / / [id number] Depuy Uniplate Screw 14mm Implanted:Qty: 2 on 09/05/2008 at [place] [facility] [place] N/A: Spine Cervical TAMMY [employer] TAM[employer] DEPUY 1897-06-017 / / Screw Inner Mntr [id number] - [id number] Implanted:Qty: 8 on 05/07/2010 at [place] [facility] [place] N/A: Spine Cervical JNJ : [employer] [id number] / / Envista Intraocular Lens Implanted:Qty: 1 on 03/10/2022 by Liang Marshall MD at OR [facility] Right: Eye BAUSCH & LOMB 08/13/2023 [id number] / [id number] / [id number] Envista Intraocular Lens Implanted:Qty: 1 on 03/24/2022 by Liang Marshall MD at OR [facility] Left: Eye BAUSCH & LOMB 07/13/2024 [id number] / [id number] / [id number] documented as of this encounter Procedures Procedure Name Priority Date/Time Associated Diagnosis Comments OUTSIDE LAB RESULTS 03/17/2023 documented in this encounter Results * OUTSIDE LAB RESULTS (03/17/2023) 03/17/2023 Estefania Palacios [facility] LABORATORY documented in this encounter Advance Directives Documents on File Type Date Recorded 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 Question Answer Comments Discussion of Advance Directives occurred with: Patient Does the patient have a Living Will? No Does the patient have Health Care Power of Manager Area? No Code Status History Code Status Date Activated Date Inactivated Comments No Code 03/10/2022 7:41 AM 03/10/2022 2:02 PM This order reflects the patients wishes and were consensually agreed upon. Question Answer Comments Discussion of Advance Directives occurred with: Patient Does the patient have a Living Will? No Does the patient have Health Care Power of Manager Area? No Full Code 05/07/2010 8:55 AM 05/11/2010 9:01 PM This order reflects the patients wishes and were consensually agreed upon. Question Answer Comments Discussion of Advance Directives occurred with: Patient Does the patient have a Living Will? No Does the patient have Health Care Power of Manager Area? No Full Code 05/07/2010 6:07 AM 05/07/2010 [...] the patient have Health Care Power of Manager Area? No Care Teams Wool Tamper Relationship Specialty Start Date End Date Jocelyne Desai DO [address] [place] [address] [place] [address] PCP - General Internal Medicine 11/09/16 documented as of this encounter
--- OUTSIDE RECORDS SUMMARY | 2023-06-15 09:01 | External Medical Summary | Summary of Care ---
Author Name Unknown Organization [facility] [address] [facility] [address] Phone [phone] Care Team Providers Care Hydrometeorologist Name Role Phone Silvia Armas DO Primary Care Provider [phone] Reason for Visit * Reason Comments Medication Refill Encounter Details Date Type Department Care Team (Late st Contact Info) Description 03/04/2023 Refill Family Medicine [address] [phone] Silvia Armas DO [address] [place] [address] [place] [address] Allergies No known active allergiesdocumented as of this encounter (statuses as of 03/06/2023) Medications Medication Sig Dispensed Refills Start Date [...] EVERY DAY 100 Tablet 2 03/06/2023 Active Atorvastatin Calcium 40 MG Oral Tablet (Lipitor) TAKE ONE TABLET BY MOUTH EVERY DAY 100 Tablet 1 08/24/2022 4 Discontinue d(Refill) Losartan Potassium 50 MG Oral Tablet (Cozaar) TAKE 1 TABLET BY MOUTH IN THE MORNING 100 Tablet 1 08/24/2022 4 Discontinue d(Refill) documented as of this encounter (statuses as of 03/06/2023) Active Problems Patient Care Coordination No te Formatting of this note migh t be different from the original. Good connectivity [facility] for wound care [phone] Televideo if needed. 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 He has significant history DM and PVD and recommended he still follow up with podiatry,. Letter in chart from [facility] podiatry they were unable to get [...] ICD-10 update of inactive term PLATT RESEARCH OTHER*[id number] 02/20/2007 ADVANCE DIRECTIVE INFORMATION 01/19/2005 Overview: Yes, Patient instructed to provide copy of advance directive for provider to review and to be scanned into Electronic Medical Record No, Advance Directive brochure given to patient at prior appointment. SPINAL STENOSIS-LUMBAR 09/23/2002 Vitamin D deficiency Cervical spinal stenosis documented as of this encounter (statuses as of 03/06/2023) Resolved Problems Problem Noted Date Diagnosed Date Resolved Date Depression, unspecified 11/09/2021 03/2 Depression, unspecified 11/09/2021 10/0 05/2022 Cellulitis of right leg 07/13/202105/2022 Last Assessment [...] 11/17/19 23 LUMBAGO 12/24/2002 05/09/2007 LOC PRIM [id number] 12/24/200208/13 DEGENERATIVE SKIN DISORD 12/24/2002 VERTEBRAL FX [...] as of this encounter (statuses as of 03/06/2023) Immunizations Name Administration Dates Next Due COVID-19 [...] Answer Date Recorded PHQ Adult Total Score 0 02/09/2022 Hunger Vital Sign Answer Date Recorded Within the past 12 months, y ou worried that your food would run out before you got the money to buy more. Never true 02/10/20 22 Within the past 12 months, t he food you bought just didn't last and you didn't have money to get more. Never true 02/09/2022 Sex and Gender Information Value Date Recorded Sex Assigned at Male 02/08/2021 1:51 PM EST Gender Identity Male 02/08/2021 1:51 PM EST Sexual Orientation Straight 02/08/2021 1: 51 PM EST Job Start Date Occupation Industry Not on file Not on file Not on file documented as of this encounter Miscellaneous Notes * Telephone Encounter - Silvia Armas DO - 03/06/2023 12:13 PM ESTSigned Prescriptions: Disp Refills Losartan Potassium 25 MG Oral Tablet (Coza*100 Ta*1 Sig: Take 1 Tablet by mouth in the morning. Authorizing Provider: SILVIA ARMAS Atorvastatin Calcium 40 MG Oral Tablet (Li*100 Ta*2 Sig: TAKE ONE TABLET BY MOUTH EVERY DAY Authorizing Provider: SILVIA ARMAS Ordering User: KENDELL MAI * Telephone Encounter - Kendell Mai RPh - 03/06/2023 7:15 AM ESTPending Prescriptions: Disp Refills Losartan Potassium 25 MG Oral Tablet (Coza*90 Tab*1 Sig: Take 1 Tablet by mouth in the morning. Signed Prescriptions: Disp Refills Atorvastatin Calcium 40 MG Oral Tablet (Li*100 Ta*2 Sig: TAKE ONE TABLET BY MOUTH EVERY DAY Authorizing Provider: SILVIA ARMAS Ordering User: KENDELL MAI * Telephone Encounter - Kendell Mai RPh - 03/06/2023 7:12 AM EST Refill request received for losartan 50 mg. Pt reported taking 25 mg Per 11/29/22 Cardio OV note: Patient hospitalized at [facility] in September 2022 with significant right lower extremity cellulitis, without cardiac decompensation. Troponins elevated but flat, consistent with acute illness. Jardiance discontinued. Losartan decreased from 50 mg/day to 25 mg/day Rx pended for 25 mg tablets, please approve if appropriate Pending Prescriptions: Disp Refills Losartan Potassium 25 MG Oral Tablet (Coz*90 Tab*1 Sig: Take 1 Tablet by mouth in the morning. Thanks, Kendell Mai, PharmD Clinical Pharmacist [facility] [phone] 03/06/2023 7:14 AM * Telephone Encounter - 03/04/2023 12:09 AM ESTPending Prescriptions: Disp Refills Losartan Potassium 50 MG Oral Tablet (Coza*100 Ta*1 Sig: TAKE 1TABLET BY MOUTH IN THE MORNING Atorvastatin Calcium 40 MG Oral Tablet (Li*100 Ta*1 Sig: TAKE ONE TABLET BY MOUTH EVERY DAY documented in this encounter Plan of Treatment Upcoming Encounters Date Type Department Care Team (Late st Contact Info) Description 03/20/2023 6:30 AM EST Anticoagulation Pharmacy Call Center WB [phone] [place] [address] [facility] 58 60 [facility] [place] [address] 06/06/2023 2:30 PM EDT Office Visit Family Medicine [address] [place] [phone] [place] [address] 06/08/2023 9:00 AM EDT Office Visit Cardiology [address] [place] [address] Greg Mckeon PA-C [address] [place] [address] 11/20/2023 2:00 PM EDT Office Visit Nephrology [address] [place] [address] Marycarmen Kowalski PA-C [address] [place] [address] 02/20/2024 12:30 PM EST Nurse Only Ancillary [address] [place] [address] [place], Nurse [address] [place] [address] Scheduled Procedures Name Priority Associated Diagnoses Date/Ti me COLONOSCOPY FLEXIBLE PROXIMA L DIAGNOSTIC Recall Screening for colon cancer Health Maintenance Due Date Last Done Comments Cologuard 1997 Sigmoidoscopy 1997 Fecal Occult Blood Test 09/02/2009 09/02/2008, 05/04 Diabetic Eye Exam 12/30/2022 12/30/2021, , 12/28/2021, Additional history exists HbA1c 05/18/2023 11/16/2022, 04/15, 11/09/2021, Additional history exists GFR 08/24/2023 02/23/2023, 06/2022, 11/16/2022, Additional history exists Albumin/Creatinine Ratio 11/17/2023 023, 05/13/2022, 09/29/2021, Additional history exists CKD PHOS USE SMARTSET 40974 11/17/2023 10/0 05/2022, 09/29/2021, 05/12/2021, Additional history exists Diabetic Foot Exam 11/17/2023 11/16/2022, 0 05/05/2021, 11/22/2017, Additional history exists CKD HGB USE SMARTSET 48069 01/18/202401/17, 01/17/2023, 11/16/2022, Additional history exists Depression [...] this encounter Medical Devices Implanted Type Area Aerial Hurricane Hunter Device Identifier Shelf Expiration Date Model / Serial / Lot Shaft Fibula 6cm [id number] - [id number] [place]ed:[place] 1 [place] [facility] [place] Human N/A: Spine Cervical MUSCULOSKELETAL TRANSPLANT FND 04/20/2010 [id number] / [id number] / Stent Eso Gw 22x70 [id number] - [id number] Implanted:Qty: 1 on 01/21/2008 [place] [facility] [place]/A: Esophagus [employer] 04/12/2009 [id number] / / [id number] Depuy Uniplate Screw 14mm Implanted:Qty: 2 on 09/05/2008 [place] [facility] [place]A: Spine Cervical [employer] 1897-06-017 / / Screw Inner Mntr [id number] - [id number] Implanted:Qty: 8 on 05/07/2010 [place] [facility] [place]A: Spine Cervical JNJ : [employer] [id number] / / Envista Intraocular Lens Implanted:Qty: 1 on 03/10/2022 by Liang Marshall MD at OR [facility] Right: Eye BAUSCH & LOMB 08/13/2023 [id number] / [id number] / [id number] Envista Intraocular Lens Implanted:Qty: 1 on 03/24/2022 by Liang Marshall MD at OR [facility] Left: Eye BAUSCH & LOMB 07/13/2024 [id number] / [id number] / [id number] documented as of this encounter Advance Directives Documents on File Type Date Recorded 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 Question Answer Comments Discussion of Advance Directives occurred with: Patient Does the patient have a Living Will? No Does the patient have Health Care Power of Eligibility And Occupancy Interviewer? No Code Status History Code Status Date Activated Date Inactivated Comments No Code 03/10/2022 7:41 AM 03/10/2022 2:02 PM This order reflects the patients wishes and were consensually agreed upon. Question Answer Comments Discussion of Advance Directives occurred with: Patient Does the patient have a Living Will? No Does the patient have Health Care Power of Eligibility And Occupancy Interviewer? No Full Code 05/07/2010 8:55 AM 05/11/2010 9:01 PM This order reflects the patients wishes and were consensually agreed upon. Question Answer Comments Discussion of Advance Directives occurred with: Patient Does the patient have a Living Will? No Does the patient have Health Care Power of Eligibility And Occupancy Interviewer? No Full Code 05/07/2010 6:07 AM 05/07/2010 [...] the patient have Health Care Power of Eligibility And Occupancy Interviewer? No Care Teams Hydrometeorologist Relationship Specialty Start Date End Date Silvia Armas DO [address] [place] [address] [place] [phone] PCP - General Internal Medicine 11/09/16 documented as of this encounter
--- OUTSIDE RECORDS SUMMARY | 2023-06-15 09:01 | External Medical Summary | Summary of Care ---
Author Name Unknown Organization [facility] Address [address] [facility] [place] [address] Phone [phone] Care Team Providers Care Gi Technician Name Role Phone Jocelyne Desai DO Primary Care Provider + [phone] Encounter Details Date Type Department Care Team (Late st Contact Info) Description 03/08/2023 Population Health External Data Unspecified Department Allergies No known active allergiesdocumented as of this encounter (statuses as of 03/08/2023) Medications Medication Sig Dispensed Refills Start Date [...] as of this encounter (statuses as of 03/08/2023) Active Problems Patient Care Coordination No te Formatting of this note migh t be different from the original. Good connectivity [facility] for wound care [phone] Televideo if needed. 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 He has significant history DM and PVD and recommended he still follow up with podiatry,. Letter in chart from [facility] podiatry they were unable to [...] ICD-10 update of inactive term PLATT RESEARCH OTHER*[id number] 02/20/2007 ADVANCE DIRECTIVE INFORMATION 01/19/2005 Overview: Yes, Patient instructed to provide copy of advance directive for provider to review and to be scanned into Electronic Medical Record No, Advance Directive brochure given to patient at prior appointment. SPINAL STENOSIS-LUMBAR 09/23/2002 Vitamin D deficiency Cervical spinal stenosis documented as of this encounter (statuses as of 03/08/2023) Resolved Problems Problem Noted Date Diagnosed Date Resolved Date Depression, unspecified 11/09/2021 03/2 Depression, unspecified 11/09/202105/2022 Cellulitis of right leg 07/13/202105/2022 Last Assessment & Plan: Suspect this could be early/localized. Will treat with 7 days antibiotic. If pt cannot be reassess by Dr. Braxton office early next week will need [facility] provider recheck Multiple and open wound [...] 11/17/19 23 LUMBAGO 12/24/2002 05/09/2007 LOC PRIM [id number] 12/24/200208/13 DEGENERATIVE SKIN DISORD 12/24/2002 VERTEBRAL FX [...] as of this encounter (statuses as of 03/08/2023) Immunizations Name Administration Dates Next Due COVID-19 [...] Call Center WB [address] Public [place] [address] [facility] 58 60 [facility] [place] [address] 06/06/2023 2:30 PM EDT Office Visit Family Medicine [address] [place] [phone] Jocelyne Desai[address] [place] [address] 06/08/2023 9:00 AM EDT Office Visit Cardiology [address] [place] [address] Greg Mckeon PA-C [address] [place] [address] 11/20/2023 2:00 PM EDT Office Visit Nephrology [address] [place] [address] ZemaMarycarmen lindsey PA-C [address] [facility] [address] 02/20/2024 12:30 PM EST Nurse Only Ancillary [address] [place] [address] [place], Nurse [address] [place] [address] Scheduled Procedures Name Priority Associated Diagnoses Date/Ti me COLONOSCOPY FLEXIBLE PROXIMA L DIAGNOSTIC Recall Screening for colon cancer Health Maintenance Due Date Last Done Comments Cologuard 1997 Sigmoidoscopy 1997 Fecal Occult Blood Test 09/02/2009 09/02/2008, 05/04 Diabetic Eye Exam 12/30/2022 12/30/2021, , 12/28/2021, Additional history exists HbA1c 05/18/2023 11/16/2022, 04/15, 11/09/2021, Additional history exists GFR 08/24/2023 02/23/2023, 12/0 06/2022, 11/16/2022, Additional history exists Albumin/Creatinine Ratio 11/17/2023 023, 05/13/2022, 09/29/2021, Additional history exists CKD PHOS USE SMARTSET 53424 11/17/2023 10/0 05/2022, 09/29/2021, 05/12/2021, Additional history exists Diabetic Foot Exam 11/17/2023 11/16/2022, 0 05/05/2021, 11/22/2017, Additional history exists CKD HGB USE SMARTSET 85364 01/18/202401/17, 01/17/2023, 11/16/2022, Additional history exists Depression [...] this encounter Medical Devices Implanted Type Area Broadcasting Equipment Mechanic Device Identifier Shelf Expiration Date Model / Serial / Lot Shaft Fibula 6cm [id number] - [id number] [place]ed:[place] 1 [place] [facility] [place] - Human N/A: Spine Cervical MUSCULOSKELETAL TRANSPLANT FND 04/20/2010 [id number] / [id number] 0P / Stent Eso Gw 22x70 [id number] - [id number] Implanted:Qty: 1 [place] 01[place]21/[place] [facility] [place]A: Esophagus [employer] 04/12/2009 [id number] / / [id number] Depuy Uniplate Screw 14mm [place]planted:Qty[place] 2 [place] 09[place]05[place] [facility] [place]: Spine Cervical TAMMY [employer] TAM[employer] DEPUY 1897-06-017 / / Screw Inner Mntr [id number] - [id number] Implanted:Qty: 8 [place] 05[place]07/[place] [facility] [place]: Spine Cervical JNJ : [employer] [id number] / / Envista Intraocular Lens Implanted:Qty: 1 on 03/10/2022 by Liang Marshall MD at OR [facility] Right: Eye BAUSCH & LOMB 08/13/2023 [id number] / [id number] / [id number] Envista Intraocular Lens Implanted:Qty: 1 on 03/24/2022 by Liang Marshall MD at OR [facility] Left: Eye BAUSCH & LOMB 07/13/2024 [id number] / [id number] / [id number] documented as of this encounter Advance Directives Documents on File Type Date Recorded 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 Question Answer Comments Discussion of Advance Directives occurred with: Patient Does the patient have a Living Will? No Does the patient have Health Care Power of Tunneller? No Code Status History Code Status Date Activated Date Inactivated Comments No Code 03/10/2022 7:41 AM 03/10/2022 2:02 PM This order reflects the patients wishes and were consensually agreed upon. Question Answer Comments Discussion of Advance Directives occurred with: Patient Does the patient have a Living Will? No Does the patient have Health Care Power of Tunneller? No Full Code 05/07/2010 8:55 AM 05/11/2010 9:01 PM This order reflects the patients wishes and were consensually agreed upon. Question Answer Comments Discussion of Advance Directives occurred with: Patient Does the patient have a Living Will? No Does the patient have Health Care Power of Tunneller? No Full Code 05/07/2010 6:07 AM 05/07/2010 [...] the patient have Health Care Power of Tunneller? No Care Teams Gi Technician Relationship Specialty Start Date End Date Jocelyne Desai DO [address] [place] [address] [place] [address] PCP - General Internal Medicine 11/09/16 documented as of this encounter
--- OUTSIDE RECORDS SUMMARY | 2023-06-15 09:01 | External Medical Summary | Summary of Care ---
Author Name Unknown Organization [facility] Address [address] [facility] [place] [address] Phone [phone] Care Team Providers Care Indigo Mixer Name Role Phone Jocelyne Desai DO Primary Care Provider + [phone] Reason for Visit * Reason Comments NEW PATIENT Here new sleep. Need new bipap machine .last seen 2019. Encounter Details Date Type Department Care Team (Late st Contact Info) Description 02/23/2023 1:30 PM EST Office Visit Sleep Disorders Ctr [facility] [address] [facility] [place] [phone] Diane Marc CRNP [address] [facility] [place] [address] Obstructive sleep apnea*; Central sleep apnea Allergies No known active allergiesdocumented as of this encounter (statuses as of 03/09/2023) Medications Medication Sig Dispensed Refills Start Date End Date Status ACETAMINOPHEN 500 MG PO TABS 2 tabs every 6 hours as needed for discomfort 0 11/01/2013 Active Cyanocobalamin (VITAMIN B-12) 1000 MCG Tablet Take 1 Tablet by mouth every evening. 0 11/22/2017 Active Cholecalciferol (VITAMIN D3) 50 MCG (1999) Capsule Take 1 Capsule by mouth every [...] SWELLING 100 Tablet 1 02/13/2023 4 Active Atorvastatin Calcium 40 MG Oral Tablet (Lipitor) TAKE ONE TABLET BY MOUTH EVERY DAY 100 Tablet 1 08/24/2022 4 Discontinue d(Refill) Losartan Potassium 50 MG Oral Tablet (Cozaar) TAKE 1 TABLET BY MOUTH IN THE MORNING 100 Tablet 1 08/24/2022 4 Discontinue d(Refill) documented as of this encounter (statuses as of 03/09/2023) Active Problems Patient Care Coordination No te Formatting of this note migh t be different from the original. Good connectivity [facility] for wound care [phone] Televideo if needed. Problem Noted Date Diagnosed Date History of NV (myocardial infarction) 11/09/2021 Trigger ring finger of [...] 11/27/2018 H/O gastric bypass 11/27/2018 Overview: RYGB rn long term care current use of 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 1 Status [...] ICD-10 update of inactive term [facility] [employer] OTHER*[id number] 02/20/2007 ADVANCE DIRECTIVE INFORMATION 01/19/2005 Overview: Yes, Patient instructed to provide copy of advance directive for provider to review and to be scanned into Electronic Medical Record No, Advance Directive brochure given to patient at prior appointment. SPINAL STENOSIS-LUMBAR 09/23/2002 Vitamin D deficiency Cervical spinal stenosis documented as of this encounter (statuses as of 03/09/2023) Resolved Problems Problem Noted Date Diagnosed Date Resolved Date Depression, unspecified 11/09/2021 03/2 Depression, unspecified 11/09/2021 100 05/2022 Cellulitis of right leg 07/13/20210 05/2022 Last Assessment & Plan: Suspect this could be early/localized. Will treat with 7 days antibiotic. If pt cannot be reassess by Dr. Braxton office early next week will need [facility] provider recheck Multiple and open wound of l owdenice limb, left, subsequent encounter 07/13/2021 11/16/2022 Last [...] Protocol #27. Diabetic foot ulcer 04/27/2011 11/09/19 Severe obesity with body mas s index [...] 11/17/19 23 LUMBAGO 12/24/2002 05/09/2007 LOC PRIM [id number] 12/24/200208/13 DEGENERATIVE SKIN DISORD 12/24/2002 VERTEBRAL FX [...] as of this encounter (statuses as of 03/09/2023) Immunizations Name Administration Dates Next Due COVID-19 [...] Date Smoking Tobacco: Never Smokeless Tobacco: Never Tobacco Cessation:Counseling Given: Not Answered Alcohol Use Standard Drinks/Week Comments Yes 0 [...] on file documented as of this encounter Last Filed Vital Signs Vital Sign Reading Time Taken Comments Blood Pressure 110/62 02/23/2023 1:42 PM EST Pulse 62 02/23/2023 1:42 PM EST Temperature 34.9 C (94.8 F) 02/23/2023 1:42 PM ES T Respiratory Rate 16 02/23/2023 1:42 PM EST Oxygen Saturation 98% 02/23/2023 1:42 PM EST Inhaled Oxygen Concentration - - Weight 112 kg (247 lb) 02/23/2023 1:42 PM EST Height 180.3 cm (5' 11") 02/23/2023 1:42 PM EST Body Mass Index 34.45 02/23/2023 1:42 PM EST documented in this encounter Progress Notes * Diane Marc CRNP - 02/23/2023 1:30 PM EST [facility] SLEEP MEDICINE CONSULTATION Mr. Cooley is a 72 year old male seen at the request of Jocelyne Desai DO for evaluation and management of sleep disordered breathing. Initially presented for evaluation September 2018 with daytime sleepiness, history of CVA, NV 2017. PSG 11/21/2018: AHI 36 (mixed obstructive and central events); CPAP titration with no optimal setting established BiPAP-ST titration 01/26/2019: overall AHI 14.3, SpO2 gloria 78% with 9 minutes <89%, best pressure 11/6 with rAHI 10, backup rate 12 He was started on BiPAP-ST 11/6 bur 12 with pressures adjusted in subsequent visits due to elevatedrAHI. Last seen by Dr. Conti in [address] settings adjusted to 15/ bur 14. Stopped BPAP in 2020 when he heard about Iman' recall. The unit was registered but he hasn't received a replacement. Compliance Data: Report date endin08/10/2020 % total days used: 100 % days used > 4 hours: 87 Average hours per day used: 4 hours 30 mins Large leak: 12-15 L/mins AHI: 19 Equipment: DME Provider: [place] Device: [employer] BPAP ST 30 Settin/9 cmH20 bur 14 Interface Type: FFM Lives alone. Sleeps in recliner in the living room vs hospital bed in living room. Has head elevated, supine. Denies snoring related arousals. No choking/gasping arousals. Sleep is refreshing. Denies sleep related headaches. May unintentional doze off if he doesn't get his typical mid day nap. No RLS symptoms. Sleep Schedule: In bed 4756-1311 Time to fall asleep minutes Nighttime awakenings/ Reason - Wake after sleep onset - Awake Time/Alarm Perceived total sleep time 1065-0401, out of bed 5 hours Naps Daily with intention, mid day 1-2 hours [place] Sleepiness Scale Question 02/23/2023 1:40 PM EST - Filed by Giovanna Headley LPN What is the chance you will doze off in the following situation? Sitting and reading No chance of dozing Watching TV Moderate chance of dozing Sitting inactive in a public place, such as a theater or meeting No chance of dozing As a passenger in a car for an hour without a break No chance of dozing Lying down to rest in the afternoon when circumstances permit High chance of dozing When sitting and talking to someone No chance of dozing When sitting quietly after lunch without alcohol No chance of dozing In a car, while stopped for a few minutes in traffic No chance of dozing Score (range: 0 - 24) 5 Functional Outcomes Of Sleep Question 02/23/2023 1:41 PM EST - Filed by Giovanna Headley LPN Please complete the following questions. Do you have difficulty concentrating because you are sleepy or tired? No Do you have difficulty remembering things because you are sleepy or tired? No Do you have difficulty operating a motor vehicle for short distances (less than 100 miles) because you become sleepy? No Do you have difficulty operating a motor vehicle for long distances (more than 100 miles) because you become sleepy? No Do you have difficulty visiting family or friends in their home because you become sleepy or tired?No Has your relationship with family, friends, or work colleagues been affected because you are sleepyor tired? No Do you have difficulty watching a movie or video because you become sleepy or tired? Yes, moderate Do you have difficulty being as active as you want to be in the evening because you are tired or sleepy? No Do you have difficulty being as active as you want to be in the morning because you are tired or sleepy? No Has your mood been affected because you are sleepy or tired? No Score (range: 10 - 40) 38 Medical History: Patient Active Problem List Diagnosis Code SPINAL STENOSIS-LUMBAR M48.061 ADVANCE DIRECTIVE INFORMATION Vitamin D deficiency E55.9 Cervical spinal stenosis M48.02 Type 2 diabetes mellitus with hemoglobin A1c goal of less than 7.5% ([facility]) E11.9 HTN, goal below 140/90 I10 DYSLIPIDEMIA, GOAL LDL BELOW 100 E78.5 [facility] [employer]EARCH OTHER*[id number] Erectile dysfunction N52.9 DM neuropathy, type II diabetes mellitus ([facility]) E11.40 Paroxysmal SVT (supraventricular tachycardia) I47.10 Cardiac pacemaker in situ Z95.0 Venous insufficiency of both lower extremities I87.2 Microalbuminuric diabetic nephropathy ([facility]) E11.21 Chronic atrial fibrillation ([facility]) I48.20 Peripheral sensory neuropathy G60.8 Essential hypertension with goal blood pressure less than 130/80 I10 Vitamin B12 deficiency E53.8 Cerebrovascular disease, arteriosclerotic, post-stroke I67.2, Z86.73 Status post amputation of lesser toe of right foot ([facility]) Z89.421 Type 2 diabetes, controlled, with peripheral neuropathy ([facility]) E11.42 Type 2 diabetes mellitus with peripheral vascular disease ([facility]) E11.51 Persistent proteinuria R80.1 H/O gastric bypass Z98.84 rn long term care current use of 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 Z79.01 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 Nocturnal hypoxemia G47.34 Type 2 diabetes mellitus with stage 3b chronic kidney disease, with long-term current use of insulin ([facility]) E11.22, N18.32, Z79.4 Sleep apnea treated with nocturnal BiPAP G47.30 PAD (peripheral artery disease) ([facility]) I73.9 Hyperparathyroidism, secondary renal ([facility]) N25.81 Diabetes mellitus due to underlying condition with severe nonproliferative diabetic retinopathy with macular edema, unspecified eye ([facility]) E08.3419 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 kidney disease ([facility]) I13.0, I50.32, N18.32 Esophageal obstruction K22.2 S/P angioplasty with stent Z95.820 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, without long-term current use of insulin ([facility]) E11.3511 Chronic kidney disease, stage 3b ([facility]) N18.32 Non-pressure chronic ulcer of other part of right foot with unspecified severity ([facility]) L97.519 Acquired absence of right great toe ([facility]) Z89.411 Diabetic ulcer of toe of right foot associated with type 2 diabetes mellitus, limited to breakdown of skin ([facility]) E11.621, L97.511 History of NV (myocardial infarction) I25.2 Trigger ring finger of left hand M65.342 Surgical History: Past Surgical History: Procedure Laterality Date AMPUTATION OF TOE 05/06/2011 2nd toe right foot - no osteomyelitis AMPUTATION OF TOE 08/2020 big toe on right foot COLONOSCOPY, DIAGNOSTIC (RECTUM) 09/23/2010 normal COLONOSCOPY, DIAGNOSTIC (RECTUM) 09/08/2021 normal, repeat 10 yrs / COLONOSCOPY FLEXIBLE PROXIMAL DIAGNOSTIC performed by Janice Shoemaker DO atENDOSCOPY [facility] CYSTOSCOPY 02/16/2015 EGD, FLEXIBLE, DIAGNOSTIC 09/20/2007 UPPER GI ENDOSCOPY DIAGNOSTIC performed by KAUSHAL WHITE at [facility] EGD, FLEXIBLE, DIAGNOSTIC 01/04/2008 UPPER GI ENDOSCOPY DIAGNOSTIC performed by KAUSHAL WHITE at [facility] EGD, FLEXIBLE, DIAGNOSTIC 03/21/2008 UPPER GI ENDOSCOPY DIAGNOSTIC performed by KAUSHAL WHITE at [facility] EGD, FLEXIBLE, TRANSENDOSCOPIC DILATION <30MM 01/04/2008 UPPER GI ENDOSCOPY BALLOON DILATION LESS THAN 30MM performed by KAUSHAL WHITE at [facility] EXPLORATION OF ABDOMEN 01/21/2008 EXPLORATORY LAPAROTOMY performed by KAUSHAL WHITE at [facility] FORM SKIN PEDICLE, TRUNK 02/14/1956 to right forearm INFORMATION Gum surgery/cyst removed INFORMATION 02/13/2005 ORAL CYST REMOVAL INJECTION OF EYE DRUG Right 12/30/2021 # 1 Avastin OD, Dr. Hodge INJECTION OF EYE DRUG Right 04/01/2022 # 2 Avastin OD, Dr. Hodge INSERT/REPLACE PACEMAKER,ATRIAL/VENTRICULAR 04/11/2013 04/11/2013 placement of siingle-chamber pacemaker via left subclavian approach [facility] DR.Mar Garcia - symptomatic bradycardia LAPAROSCOPE PROCEDURE, LIVER 09/20/2007 UNLISTED LAPAROSCOPIC PROCEDURE LIVER performed by KAUSHAL WHITE at [facility] LAPAROSCOPIC GASTRIC BYPASS/BHUPINDER-EN-Y 09/20/2007 LAPAROSCOPIC GASTRIC RESTRICTIVE BYPASS BHUPINDER EN Y performed by KAUSHAL WHITE at [facility] LASER SURGERY OF INNER EYE STRANDS Bilateral "about 20- 25 years ago" MICROSURGERY ADD-ON 05/07/2010 MICROSURGICAL SURGERY REQUIRING MICROSCOPE LISTED SEPARATELY performed by GAVIN BHARDWAJ at [facility] MRI FOOT WO CONTRAST 04/06/2011 Osteomyelitis of the distal phalanx of the 2nd digit. Reactive edema versus early osteomyelitis of the 2nd middle phalanx NECK SPINE FUSION (CERV, BELOW C2) 09/05/2008 ARTHRODESIS SPINE ANTERIOR CERVICAL performed by GAVIN BHARDWAJ at [facility] NECK SPINE FUSION (CERV, BELOW C2) 05/07/2010 ARTHRODESIS SPINE ANTERIOR CERVICAL performed by GAVIN BHARDWAJ at [facility] NECK SPINE FUSION (CERV, BELOW C2) 05/07/2010 ARTHRODESIS SPINE POSTERIOR CERVICAL performed by GAVIN BHARDWAJ at [facility] OTHER (INFORMATION) ACT 112 SIGNED 06/11/20 DR. HODGE OTHER (INFORMATION) Bilateral AVASTIN OU CONSENT DR. HODGE/MITESH EXP. 12/30/22 PACEMAKER INSERTION PER 01/18/2023 Dr. Rodriguez [facility] PARTIAL AMPUTATION OF TOE Right 12/2020 3rd toe and release tendon of other toes at the same time. REMOVAL OF TONSILS, AGE 12+ REMOVE ADDED VERTEBRAL SEG, NECK 05/07/2010 VERTEBRAL CORPECTOMY CERVICAL EACH ADDITIONAL LEVEL performed by GAVIN BHARDWAJ at [facility] REMOVE CATARACT, INSERT LENS PROSTH Right 03/10/2022 right EXTRACAPSULAR CATARACT REMOVAL WITH INTRAOCULAR LENS performed by Liang Marshall MD at [facility] REMOVE CATARACT, INSERT LENS PROSTH Left 03/24/2022 left EXTRACAPSULAR CATARACT REMOVAL WITH INTRAOCULAR LENS performed by Liang Marshall MD at [facility] REMOVE NECK SPINE DISK, SINGLE 09/05/2008 DISKECTOMY ANTERIOR CERVICAL performed by GAVIN BHARDWAJ at [facility] REMOVE NECK SPINE DISK, SINGLE 05/07/2010 DISKECTOMY ANTERIOR CERVICAL performed by GAVIN BHARDWAJ at [facility] REMOVE VERTEBRAL BODY, NECK, SINGLE 05/07/2010 VERTEBRAL CORPECTOMY ANTERIOR CERVICAL performed by GAVIN BHARDWAJ at [facility] REPAIR FINGER/HAND TENDON, EACH & right index finger tendon transfer from toe - [employer] [employer]. SPINE FIX DEV, ANT, 4-7 SEG, INSERT 05/07/2010 ANTERIOR INSTRUMENTATION 4 TO 7 VERTEBRAL SEGMENTS performed by GAVIN BHARDWAJ at [facility] SPINE SEG FIX, POST, 3-6 SEG, INSERT 05/07/2010 POSTERIOR SPINE SEGMENTAL INSTRUMENTATION 3 TO 6 PSF performed by GAVIN BHARDWAJ at [facility] UPPR GI ENDOSCOPY W/STENT 01/21/2008 UPPER GI ENDOSCOPY WITH TRANSENDOSCOPIC STENT PLACEMENT performed by KAUSHAL WHITE at [facility] Current Medications: Outpatient Medications Marked as Taking for the 02/23/23 encounter (Office Visit) with Diane Marc CRNP Medication Sig Furosemide 20 MG Oral Tablet (Lasix) TAKE ONE TABLET BY MOUTH EVERY DAY NEEDED FOR SWELLING Warfarin Sodium 3 MG Oral Tablet (Coumadin) TAKE 1 TO 2 TABLETS BY MOUTH DAILY, DIRECTED BY COUMADIN CLINIC Metoprolol Succinate ER 25 MG Oral Tablet Extended Release 24 Hour (toPROL XL) Take 1 Tablet by mouth in the morning. Ozempic (0.25 or 0.5 MG/DOSE) 2 MG/3ML Solution Pen-injector (Semaglutide(0.25 or 0.5MG/DOS)) inject 0.25 mg under the skin once a week x 4 weeks, then increase to 0.50 mg weekly thereafter. (Patienttaking differently: 0.5 mg once a week. inject 0.25 mg under the skin once a week x 4 weeks, then increase to 0.50 mg weekly thereafter.) Vitron-C 65-125 MG Oral Tablet (Iron-Vitamin C 65-125 mg per tab) Take 1 Tablet by mouth every evening. Atorvastatin Calcium 40 MG Oral Tablet (Lipitor) TAKE ONE TABLET BY MOUTH EVERY DAY Losartan Potassium 50 MG Oral Tablet (Cozaar) TAKE 1 TABLET BY MOUTH IN THE MORNING (Patient takingdifferently: Take 0.5 Tablets by mouth in the morning. Take 1/2 tablet by mouth daily (25 mg total).) Tamsulosin HCl 0.4 MG Oral Capsule (Flomax) TAKE 1 CAPSULE BY MOUTH IN THE MORNING Aspirin 81 MG Oral Tablet Delayed Release Take 1 Tablet by mouth every evening. Magnesium Oxide 400 MG Oral Capsule Take 1 Cap by mouth 2 times a day. (Patient taking differently:Take 1 Capsule by mouth in the morning.) Flintstones w/Iron 18 MG Oral Tablet Chewable Take by mouth 1 Tablet every evening . Cholecalciferol (VITAMIN D3) 50 MCG (2000 UT) Capsule Take 1 Capsule by mouth every evening. Cyanocobalamin (VITAMIN B-12) 1000 MCG Tablet Take 1 Tablet by mouth every evening. ACETAMINOPHEN 500 MG PO TABS 2 tabs every 6 hours as needed for discomfort Social History: Caffeine: 1 cup coffee/am Alcohol use: rare 1 drink Nicotine use: denies Illicit drug use: denies Routine exercise: denies Family History: Denies family history of sleep related disorders. Review of Systems Constitutional: Weight down (Ozempic) HENT: Negative for congestion. Respiratory: Positive for shortness of breath (baseline). Cardiovascular: Positive for leg swelling. Negative for chest pain. Musculoskeletal: Positive for back pain. Neurological: Negative for headaches. Psychiatric/Behavioral: Negative for sleep disturbance. Physical Exam: BP 110/62 | Pulse 62 | Temp (!) 34.9 C (94.8 F) (Tympanic) | Resp 16 | Ht 1.803 m (5' 11") | Wt112 kg (247 lb) | SpO2 98% | BMI 34.45 kg/m | BSA 2.37 m Constitutional: No acute distress, obese, accompanied by self Eyes: No conjunctival icterus or pallor Nose: Normal external appearance. Mandible: No retrognathia Neck: Circumference 14.5 inches Chest: Normal respiratory effort at rest, clear lung snider Cardiac: Regular rate and rhythm Neuro: Alert, oriented, fluent/clear speech Psych: Appropriate mood and affect. Assessment/Plan: Complex past medical history including CVA, NV, HTN, CHF, DM, chronic afib, s/p pacemaker and mixedsleep apnea who is prescribed BIPAP ST for treatment. Mr. Cooley stopped treatment due to Iman' recall. His unit has been registered but not yet replaced. He has not yet contacted [employer] regarding the status of his replacement unit. With his permission today, I accessed his [facility] patient portal and provided him with the information needed to contact them. He agrees to call and will update me on the status of this. Alternatively, we discussed that he could check with his insurance to see if a new machine would beissued or whether he would need new diagnostic work up. He would prefer not to do this. We reviewed the risks of untreated sleep apnea. He is not comfortable using the recalled unit. Follow-up pending restart of BPAP ST which is recommended during all periods of sleep opportunity. [facility] I spent a total of 40-54 minutes (exact time 43 mins) on the date of service in preparation, delivery, and documentation of the care provided to Lg Cooley excluding any time spent in the performance of separately billed services. documented in this encounter Nursing Notes * Giovanna Headley LPN - 02/23/2023 1:46 PM EST Chief Complaint Patient presents with NEW PATIENT Here new sleep. Need new bipap machine .last seen 2019. Neck:: 14.5". Travel Screening Question 02/23/2023 1:28 PM EST - Filed by Patient Do you have any of the following new or worsening symptoms? None of these Have you recently been in contact with someone who was sick? No / Unsure [place] Sleepiness Scale Question 02/23/2023 1:40 PM EST - Filed by Giovanna Headley LPN What is the chance you will doze off in the following situation? Sitting and reading No chance of dozing Watching TV Moderate chance of dozing Sitting inactive in a public place, such as a theater or meeting No chance of dozing As a passenger in a car for an hour without a break No chance of dozing Lying down to rest in the afternoon when circumstances permit High chance of dozing When sitting and talking to someone No chance of dozing When sitting quietly after lunch without alcohol No chance of dozing In a car, while stopped for a few minutes in traffic No chance of dozing Score (range: 0 - 24) 5 Functional Outcomes Of Sleep Question 02/23/2023 1:41 PM EST - Filed by Giovanna Headley LPN Please complete the following questions. Do you have difficulty concentrating because you are sleepy or tired? No Do you have difficulty remembering things because you are sleepy or tired? No Do you have difficulty operating a motor vehicle for short distances (less than 100 miles) because you become sleepy? No Do you have difficulty operating a motor vehicle for long distances (more than 100 miles) because you become sleepy? No Do you have difficulty visiting family or friends in their home because you become sleepy or tired?No Has your relationship with family, friends, or work colleagues been affected because you are sleepyor tired? No Do you have difficulty watching a movie or video because you become sleepy or tired? Yes, moderate Do you have difficulty being as active as you want to be in the evening because you are tired or sleepy? No Do you have difficulty being as active as you want to be in the morning because you are tired or sleepy? No Has your mood been affected because you are sleepy or tired? No Score (range: 10 - 40) 38 documented in this encounter Plan of Treatment Upcoming Encounters Date Type Department Care Team (Late st Contact Info) Description 03/20/2023 6:30 AM EST Anticoagulation Pharmacy Call Center [phone] [facility] [place] [address] [facility] [address] [facility] [place] [address] 06/06/2023 2:30 PM EDT Office Visit Family Medicine [address] [place] [phone] Jocelyne Desai[address] [place] [address] 06/08/2023 9:00 AM EDT Office Visit Cardiology [address] [place] [address] Greg Mckeon PA-C [address] [place] [address] 11/20/2023 2:00 PM EDT Office Visit Nephrology [address] [place] [address] Marycarmen Kowalski PA-C [address] [place] [address] 02/20/2024 12:30 PM EST Nurse Only Ancillary [address] [place] [address] [place], Nurse [address] [place] [address] Scheduled Procedures Name Priority Associated Diagnoses Date/Ti me COLONOSCOPY FLEXIBLE PROXIMA L DIAGNOSTIC Recall Screening for colon cancer Health Maintenance Due Date Last Done Comments Cologuard 1997 Sigmoidoscopy 1997 Fecal Occult Blood Test 09/02/2009 09/02/2008, 05/04 Diabetic Eye Exam 12/30/2022 12/30/2021, , 12/28/2021, Additional history exists HbA1c 05/18/2023 11/16/2022, 04/15, 11/09/2021, Additional history exists GFR 08/24/2023 02/23/2023, 1206/2022, 11/16/2022, Additional history exists Albumin/Creatinine Ratio 11/17/2023 023, 05/13/2022, 09/29/2021, Additional history exists CKD PHOS USE SMARTSET 69427 11/17/2023 100 05/2022, 09/29/2021, 05/12/2021, Additional history exists Diabetic Foot Exam 11/17/2023 11/16/2022, 0 05/05/2021, 11/22/2017, Additional history exists CKD HGB USE SMARTSET 37241 01/18/202401/17, 01/17/2023, 11/16/2022, Additional history exists Depression [...] this encounter Medical Devices Implanted Type Area General Service Technician Device Identifier Shelf Expiration Date Model / Serial / Lot Shaft Fibula 6cm [id number] - [id number] Implanted:Qty: 1 on 09/05/2008 at [facility] Tissue - Human N/A: Spine Cervical [employer]KELET[employer]ANSPLANT FND 04/20/2010 [id number] / [id number] / Stent Eso Gw 22x70 [id number] - [id number] Implanted:Qty: 1 on 01/21/2008 at [facility] N/A: Esophagus [employer] 04/12/2009 [id number] / / [id number] Depuy Uniplate Screw 14mm Implanted:Qty: 2 on 09/05/2008 at [facility] N/A: Spine Cervical [employer] [id number] / / Screw Inner Mntr [id number] - [id number] Implanted:Qty: 8 on 05/07/2010 at [place] [facility] N/A: Spine Cervical JNJ : ETH[employer] C[employer]IOVATIONS [id number] / / [id number] Intraocular Lens Implanted:Qty: 1 on 03/10/2022 by Liang Marshall MD at OR [facility] Right: Eye BAUSCH & LOMB 08/13/2023 [id number] / [id number] / [id number] Envista Intraocular Lens Implanted:Qty: 1 on 03/24/2022 by Liang Marshall MD at OR [facility] Left: Eye BAUSCH & LOMB 07/13/2024 [id number] / [id number] / [id number] documented as of this encounter Visit Diagnoses Diagnosis Obstructive sleep apnea- Primary Obstructive sleep apnea (adult) (pediatric) Central sleep apnea Unspecified sleep apnea documented in this encounter Advance Directives Documents on File Type Date Recorded Patient 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 No Code Status History Code Status Date Activated Date Inactivated Comments No Code 03/10/2022 7:41 AM 03/10/2022 2:02 PM This order reflects the patients wishes and were consensually agreed upon. Question Answer Comments Discussion of Advance Directives occurred with: Patient Does the patient have a Living Will? No Does the patient have Health Care Power of Raise Drill Operator? No Full Code 05/07/2010 8:55 AM 05/11/2010 9:01 PM This order reflects the patients wishes and were consensually agreed upon. Question Answer Comments Discussion of Advance Directives occurred with: Patient Does the patient have a Living Will? No Does the patient have Health Care Power of Raise Drill Operator? No Full Code 05/07/2010 6:07 AM [...] the patient have Health Care Power of Raise Drill Operator? No Care Teams Indigo Mixer Relationship Specialty Start Date End Date Jocelyne Desai DO [address] [place] [address] [place] [address] PCP - General Internal Medicine 11/09/16 documented as of this encounter
--- OUTSIDE RECORDS SUMMARY | 2023-06-15 09:02 | External Medical Summary | Summary of Care ---
Author Name Unknown Organization [facility] Address [address] [facility] [address] Phone [phone] Care Team Providers Care E Commerce Manager Name Role Phone DesaiElissaJocelyne Briggs DO Primary Care Provider + [phone] Reason for Visit * Reason Comments Dosage Adjustment Via Phone (anticoag Cl inic) Encounter Details Date Type Department Care Team (Latest Contact Info) Description 03/03/2023 6:30 AM EST Anticoagulation Pharmacy Call Center [phone] [place] [address] [facility] [address] [place] [address] Chronic atrial fibrillation (HCC)* Allergies No known active allergiesdocumented as of this encounter (statuses as of 03/03/2023) Medications Medication Sig Dispensed Refills Start Date [...] Tablet by mouth every evening. 0 Active Atorvastatin Calcium 40 MG Oral Tablet (Lipitor) TAKE ONE TABLET BY MOUTH EVERY DAY 100 Tablet 1 08/24/2022 Active Losartan Potassium 50 MG Oral Tablet (Cozaar) TAKE 1 TABLET BY MOUTH IN THE MORNING 100 Tablet 1 08/24/2022 Active Additional Information Patient taking differently: 25 mgOral Daily(AM),Take 1/2 tablet by mouth daily (25 mg total), Informant: At Discharge, Reported on 01/10/2023 Tamsulosin HCl 0.4 MG Oral Capsule (Flomax) [...] SWELLING 100 Tablet 1 02/13/2023 02/13/2024 Active documented as of this encounter (statuses as of 03/03/2023) Active Problems Patient Care Coordination No te Formatting of this note migh t be different from the original. Good connectivity [facility] for wound care [phone] Televideo if needed. 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 He has significant history DM and PVD and recommended he still follow up with podiatry,. 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 SPINAL STENOSIS-LUMBAR 09/23/2002 Vitamin D deficiency Cervical spinal stenosis documented as of this encounter (statuses as of 03/03/2023) Resolved Problems Problem Noted Date Diagnosed Date Resolved Date Depression, unspecified 11/09/2021 03/2 Depression, unspecified 11/09/2021 10/0 05/2022 Cellulitis of right leg 07/13/20210 05/2022 [...] 11/17/19 23 LUMBAGO 12/24/2002 05/09/2007 LOC PRIM [id number] 12/24/200208/13 DEGENERATIVE SKIN DISORD 12/24/2002 VERTEBRAL FX [...] as of this encounter (statuses as of 03/03/2023) Immunizations Name Administration Dates Next Due COVID-19 [...] as of this encounter Progress Notes * Sofie Danielle RPh - 03/03/2023 9:58 AM EST Updated note for 03/17/23 when RN comes to visit pt; re-faxed encounter. Sofie Guillory PharmD Clinical Pharmacist [facility] ([facility]) ([facility]) [phone] 03/03/2023 9:58 AM * Marlon Coppola PHARM Tech - 03/03/2023 9:56 AM EST Contacts Type Contact Phone/Fax 03/03/2023 06:59 AM EST Fax (Incoming) 03/03/2023 09:52 AM EST Phone (Outgoing) Lg Cooley "Akshat" (Self) [phone] (H) Subjective Patient Findings Negatives: Signs/symptoms of thrombosis, Signs/symptoms of bleeding, Change in health, Change in alcohol use, Change in activity, Upcoming invasive procedure, Missed doses, Extra doses, Change in medications, Change in diet/appetite, Bruising Pt stated the home nurse comes on 03/17/23 and wants INR moved to that date. Advised patient to contact Anticoagulation Clinic if any unusual bruising or bleeding, recent illness, changes in medication, or questions/concerns. PT/INR results, Coumadin dose instructions, and next PT/INR date communicated as noted by Pharmacist: Yes Marlon Coppola manager med surg 03/03/2023, 9:56 AM * Sofie Danielle RPh - 03/03/2023 8:35 AM EST Images from the original note were not included. Lg Cooley (52) Coumadin Clinic (region specific) Objective Current Warfarin Dose As of 03/03/2023 Warfarin maintenance plan: 1.5 mg (3 mg x 0.5) every Mon, Fri; 3 mg (3 mg x 1) all other days INR Result As of 03/03/2023 INR goal: 2.0-3.0 INR used for dosin.43 (03/02/2023) Assessment & Plan Warfarin Plan As of 03/03/2023 Full warfarin instructions: 03/03: Hold; Otherwise 1.5 mg every Mon, Fri; 3 mg all other days Next INR check: 03/17/2023 Repeat PT/INR in 2 week(s) Weekly dose: not changed Additional Dosing Information: Description [facility] Nurses; fax - [phone] ([facility]) Pacemaker Gen Change 01/18/23- Dr. Carpenter would like INR 2-2.5 Tech to contact patient with dose instructions as noted. Sofie Danielle RPh 03/03/2023, 8:35 AM * Libby Vo, manager med surg - 03/03/2023 6:59 AM EST Patient Phone Numbers Received fax from [facility] for today's results of PT= 39.7 INR= 3.43 Thank you, Libby Vo Numerical Control Nesting Operator [facility] Pharm[facility] Services 03/03/2023,6:59 AM documented in this encounter Plan of Treatment Upcoming Encounters Date Type Department Care Team (Late st Contact Info) Description 06/06/2023 2:30 PM EDT Office Visit Family Medicine [address] [place] [phone] Jocelyne Desai [address] [place] [address] 06/08/2023 9:00 AM EDT Office Visit Cardiology [address] [place] [address] Greg Mckeon PA-C [address] [place] [address] 11/20/2023 2:00 PM EDT Office Visit Nephrology [address] [place] [address] Marycarmen Kowalski PA-C [address] [place] [address] 02/20/2024 12:30 PM EST Nurse Only Ancillary [address] [place] [address] [place], Nurse [address] [place] [address] Scheduled Procedures Name Priority Associated Diagnoses Date/Ti [...] Additional history exists CKD PHOS USE SMARTSET 51022 11/17/2023 100 05/2022, 09/29/2021, 05/12/2021, Additional history exists Diabetic Foot Exam 11/17/2023 11/16/2022, 0 05/05/2021, 11/22/2017, Additional history exists CKD HGB USE SMARTSET 55543 01/18/202401/17, 01/17/2023, 11/16/2022, Additional history exists Depression [...] this encounter Medical Devices Implanted Type Area Collar Closer Lockstitch Device Identifier Shelf Expiration Date Model / Serial / Lot Shaft Fibula 6cm [id number] - [id number] Implanted:Qty: 1 on 09/05/2008 [place] [facility] [place] - Human N/A: Spine Cervical MUSCULOSKELETAL TRANSPLANT FND 04/20/2010 [id number] / [id number] / Stent Eso Gw 22x70 [id number] - [id number] Implanted:Qty: 1 on 01/21/2008 at [place] [facility] N/A: Esophagus [employer] 04/12/2009 [id number] / / [id number] Depuy Uniplate Screw 14mm Implanted:Qty: 2 on 09/05/2008 at [place] [facility] N/A: Spine Cervical TAMMY [employer] TAMMY DEPUY 1897-06-017 / / Screw Inner Mntr [id number] - [id number] Implanted:Qty: 8 on 05/07/2010 at [place] [facility] N/A: Spine Cervical JNJ : [employer] [id number] / / Envista Intraocular Lens Implanted:Qty: 1 on 03/10/2022 by Liang Marshall MD at OR [facility] Right: Eye BAUSCH & LOMB 08/13/2023 [id number] / [id number] / [id number] Envista Intraocular Lens Implanted:Qty: 1 on 03/24/2022 by Liang Marshall MD at OR [facility] Left: Eye BAUSCH & LOMB 07/13/2024 [id number] / [id number] / [id number] documented as of this encounter Procedures Procedure Name Priority Date/Time Associated Diagnosis Comments OUTSIDE LAB-PT/INR Routine 03/02/2023 documented in this encounter Results * OUTSIDE LAB-PT/INR (03/02/2023) INR-OUTSIDE LAB 3.43 03/02/2023 History Per Patient LABORATORY documented in this encounter Visit Diagnoses Diagnosis Chronic atrial fibrillation (HCC)- Primary Atrial fibrillation documented in this encounter Advance Directives Documents on File Type Date Recorded 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 No Code Status History Code Status Date Activated Date Inactivated Comments No Code 03/10/2022 7:41 AM 03/10/2022 2:02 PM This order reflects the patients wishes and were consensually agreed upon. Question Answer Comments Discussion of Advance Directives occurred with: Patient Does the patient have a Living Will? No Does the patient have Health Care Power of Timber Cutter? No Full Code 05/07/2010 8:55 AM 05/11/2010 9:01 PM This order reflects the patients wishes and were consensually agreed upon. Question Answer Comments Discussion of Advance Directives occurred with: Patient Does the patient have a Living Will? No Does the patient have Health Care Power of Timber Cutter? No Full Code 05/07/2010 6:07 AM 05/07/2010 [...] the patient have Health Care Power of Timber Cutter? No Care Teams E Commerce Manager Relationship Specialty Start Date End Date Jocelyne Desai DO [address] [place] [address] [place] [address] PCP - General Internal Medicine 11/09/16 documented as of this encounter
--- OUTSIDE RECORDS SUMMARY | 2023-06-15 09:02 | External Medical Summary | Summary of Care ---
Author Name Unknown Organization [facility] Address [address] [facility] [address] Phone [phone] Care Team Providers Care Manager Photo Name Role Phone Silvia Armas DO Primary Care Provider Reason for Visit * Reason Comments Medication Refill Encounter Details Date Type Department Care Team (Late st Contact Info) Description 03/04/2023 Refill Family Medicine [address] [phone] Silvia Armas DO [address] [place] [address] [place] [address] Allergies No known active allergiesdocumented as of [...] be different from the original. Good connectivity [facility] for wound care [phone] Televideo if needed. Problem Noted Date Diagnosed [...] up with podiatry,. Letter in chart from [facility] podiatry they were unable to get [...] 11/27/2018 H/O gastric bypass 11/27/2018 Overview: R[facility] current use of 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 1 Status [...] ICD-10 update of inactive term PLATT RESEARCH OTHER*[id number] 02/20/2007 ADVANCE DIRECTIVE INFORMATION 01/19/2005 Overview: Yes, [...] [place] office early next week will need [facility] provider recheck Multiple and open wound of [...] 11/17/19 23 LUMBAGO 12/24/2002 05/09/2007 LOC PRIM [id number] 12/24/200208/13 DEGENERATIVE SKIN DISORD 12/24/2002 VERTEBRAL FX [...] 11/29/22 Cardio OV note: Patient hospitalized at [facility] in September 2022 with significant [...] Pharmacist [facility] Services ([facility]) ([facility]) [phone] 03/06/2023 7:14 AM * Telephone Encounter - [...] Call Center WB [phone] [place] [address] [facility] 58 60 [facility] [place] [address] 06/06/2023 2:30 PM EDT Office Visit Family Medicine [address] [place] [phone] [address] [place] [address] 06/08/2023 9:00 AM EDT Office Visit Cardiology [address] [place] [address] Greg Mckeon PA-C [address] [place] [address] 11/20/2023 2:00 PM EDT Office Visit Nephrology [address] [place] [address] Marycarmen Kowalski PA-C [address] [place] [address] 02/20/2024 12:30 PM EST Nurse Only Ancillary [address] [place] [address] [place], Nurse [address] [place] [address] Scheduled Procedures Name Priority Associated Diagnoses Date/Ti [...] Additional history exists CKD PHOS USE SMARTSET 52757 11/17/2023 10/0 05/2022, 09/29/2021, 05/12/2021, Additional history exists Diabetic Foot Exam 11/17/2023 11/16/2022, 0 05/05/2021, 11/22/2017, Additional history exists CKD HGB USE SMARTSET 28717 01/18/202401/17, 01/17/2023, 11/16/2022, Additional history exists Depression [...] this encounter Medical Devices Implanted Type Area Sap Administrator Device Identifier Shelf Expiration Date Model / Serial / Lot Shaft Fibula 6cm [id number] - [id number] Implanted:Qty: 1 on 09/05/2008 at [place] [facility] Tissue - Human N/A: Spine Cervical MUSCULOSKELETAL TRANSPLANT FND 04/20/2010 [id number] / [id number] / Stent Eso Gw 22x70 [id number] - [id number] Implanted:Qty: 1 on 01/21/2008 at OR [facility] N/A: Esophagus [employer] 04/12/2009 [id number] / / [id number] Depuy Uniplate Screw 14mm Implanted:Qty: 2 on 09/05/2008 at OR [facility] N/A: Spine Cervical TAMMY & TAMMY DEPUY 1897-06-017 / / Screw Inner Mntr [id number] - [id number] Implanted:Qty: 8 on 05/07/2010 at [place] [facility] N/A: Spine Cervical JNJ : ETHICON C[employer] [id number] / / Envista Intraocular Lens Implanted:Qty: 1 on 03/10/2022 by Liang Marshall MD at OR [facility] Right: Eye BAUSCH & LOMB 08/13/2023 [id number] / [id number] / [id number] Envista Intraocular Lens Implanted:Qty: 1 on 03/24/2022 by Liang Marshall MD at OR [facility] Left: Eye BAUSCH & LOMB 07/13/2024 [id number] / [id number] / [id number] documented as of this encounter Advance Directives Documents on File Type Date Recorded 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 No Code Status History Code Status Date Activated Date Inactivated Comments No Code 03/10/2022 7:41 AM 03/10/2022 2:02 PM This order reflects the patients wishes and were consensually agreed upon. Question Answer Comments Discussion of Advance Directives occurred with: Patient Does the patient have a Living Will? No Does the patient have Health Care Power of Manager Urgent Care? No Full Code 05/07/2010 8:55 AM 05/11/2010 9:01 PM This order reflects the patients wishes and were consensually agreed upon. Question Answer Comments Discussion of Advance Directives occurred with: Patient Does the patient have a Living Will? No Does the patient have Health Care Power of Manager Urgent Care? No Full Code 05/07/2010 6:07 AM 05/07/2010 [...] patient have Health Care Power of Manager Urgent Care? No Care Teams Manager Photo Relationship Specialty Start Date End Date Silvia Armas DO [address] [place] [address] [place] [phone] PCP - General Internal Medicine 11/09/16 documented as of this encounter
--- OUTSIDE RECORDS SUMMARY | 2023-06-15 09:03 | External Medical Summary | Summary of Care ---
Author Name Unknown Organization [facility] Address [address] [facility] [place] [address] Phone [phone] Care Team Providers Care Block Layer Name Role Phone Lloyd Jocelyne Briggs Primary Care Provider + [phone] Encounter Details Date Type Department Care Team (Late st Contact Info) Description 03/02/2023 Result Scan Unspecified Department Estefania Palacios, [facility] [address] [place] [address] <No scans attached> Allergies No known active [...] be different from the original. Good connectivity [facility] for wound care [phone] Televideo if needed. Problem Noted Date Diagnosed [...] podiatry,. Letter in chart from [facility] podiatry they were unable to get in [...] ICD-10 update of inactive term PLATT RESEARCH OTHER*[id number] 02/20/2007 ADVANCE DIRECTIVE INFORMATION 01/19/2005 Overview: Yes, [...] [place] office early next week will need [facility] provider recheck Multiple and open wound [...] 11/17/19 23 LUMBAGO 12/24/2002 05/09/2007 LOC PRIM [id number] 12/24/200208/13 DEGENERATIVE SKIN DISORD 12/24/2002 VERTEBRAL FX [...] 2:30 PM EDT Office Visit Family Medicine [address] [place] [phone] [address] [place] [address] 06/08/2023 9:00 AM EDT Office Visit Cardiology [address] [place] [address] Greg Mckeon PA-C [address] [place] [address] 11/20/2023 2:00 PM EDT Office Visit Nephrology [address] [place] [address] ZemaitisMarycarmen PA-C [address] [place] [address] 02/20/2024 12:30 PM EST Nurse Only Ancillary [address] [place] [address] [place], Nurse Annual [address] [place] [address] Scheduled Procedures Name Priority Associated Diagnoses Date/Ti me COLONOSCOPY FLEXIBLE PROXIMA L DIAGNOSTIC Recall Screening for colon cancer Health Maintenance Due Date Last Done Comments Cologuard 1997 Sigmoidoscopy 1997 Fecal Occult Blood Test 09/02/2009 09/02/2008, 05/04 Diabetic Eye Exam 12/30/2022 12/30/2021, , 12/28/2021, Additional history exists HbA1c 05/18/2023 11/16/2022, 0302/2022, 11/09/2021, Additional history exists GFR 08/24/2023 02/23/2023, 12/0 06/2022, 11/16/2022, Additional history exists Albumin/Creatinine Ratio 11/17/2023 023, 05/13/2022, 09/29/2021, Additional history exists CKD PHOS USE SMARTSET 47164 11/17/2023 10/0 05/2022, 09/29/2021, 05/12/2021, Additional history exists Diabetic Foot Exam 11/17/2023 11/16/2022, 0 05/05/2021, 11/22/2017, Additional history exists CKD HGB USE SMARTSET 29599 01/18/202401/17, 01/17/2023, 11/16/2022, Additional history exists Depression [...] this encounter Medical Devices Implanted Type Area Dial Mounter Device Identifier Shelf Expiration Date Model / Serial / Lot Shaft Fibula 6cm 826782 - [id number] Implanted:Qty: 1 on 09/05/2008 [place] [facility] [place] - Human N/A: Spine Cervical MUSCULOSKELETAL TRANSPLANT FND 04/20/2010 [id number] / [id number] / Stent Eso Gw 22x70 [id number] - [id number] Implanted:Qty: 1 on 01/21/2008 at [place] [facility] N/A: Esophagus [employer]US INC 04/12/2009 [id number] / / [id number] Depuy Uniplate Screw 14mm Implanted:Qty: 2 on 09/05/2008 at [place] [facility] N/A: Spine Cervical TAMMY & TAMMY DEPUY 1897-06-017 / / Screw Inner Mntr [id number] - [id number] Implanted:Qty: 8 on 05/07/2010 at [place] [facility] N/A: Spine Cervical JNJ : [employer] [id number] / / Envista Intraocular Lens Implanted:Qty: 1 on 03/10/2022 by Liang Marshall MD at OR [facility] Right: Eye BAUSCH & LOMB 08/13/2023 [id number] / [id number] / [id number] Envista Intraocular Lens Implanted:Qty: 1 on 03/24/2022 by Liang Marshall MD at OR [facility] Left: Eye BAUSCH & LOMB 07/13/2024 [id number] / [id number] / [id number] documented as of this encounter Procedures Procedure Name Priority Date/Time Associated Diagnosis Comments OUTSIDE LAB RESULTS 03/02/2023 documented in this encounter Results * OUTSIDE LAB RESULTS (03/02/2023) 03/02/2023 Estefania Palacios [facility] LABORATORY documented in this encounter Advance Directives Documents on File Type Date Recorded 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 Question Answer Comments Discussion of Advance Directives occurred with: Patient Does the patient have a Living Will? No Does the patient have Health Care Power of Head Housekeeper? No Code Status History Code Status Date Activated Date Inactivated Comments No Code 03/10/2022 7:41 AM 03/10/2022 2:02 PM This order reflects the patients wishes and were consensually agreed upon. Question Answer Comments Discussion of Advance Directives occurred with: Patient Does the patient have a Living Will? No Does the patient have Health Care Power of Head Housekeeper? No Full Code 05/07/2010 8:55 AM 05/11/2010 9:01 PM This order reflects the patients wishes and were consensually agreed upon. Question Answer Comments Discussion of Advance Directives occurred with: Patient Does the patient have a Living Will? No Does the patient have Health Care Power of Head Housekeeper? No Full Code 05/07/2010 6:07 AM 05/07/2010 [...] the patient have Health Care Power of Head Housekeeper? No Care Teams Block Layer Relationship Specialty Start Date End Date Jocelyne Desai DO [address] [place] [address] [place] [address] PCP - General Internal Medicine 11/09/16 documented as of this encounter
--- OUTSIDE RECORDS SUMMARY | 2023-06-15 09:03 | External Medical Summary | Summary of Care ---
Author Name Unknown Organization [facility] Address [address] [facility] [address] Phone [phone] Care Team Providers Care Hand Binder Cutter Name Role Phone DesaiElissaJocelyne Briggs DO Primary Care Provider + [phone] Reason for Visit * Reason Comments Dosage Adjustment Via Phone (anticoag Cl inic) Encounter Details Date Type Department Care Team (Latest Contact Info) Description 03/03/2023 6:30 AM EST Anticoagulation Pharmacy Call Center [address] [place] [address] [facility] [address] [place] [address] Chronic atrial fibrillation (HCC)* Allergies No known [...] be different from the original. Good connectivity [facility] for wound care [phone] Televideo if needed. 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 He has significant history DM and PVD and recommended he still follow up with podiatry,. 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 provider recheck Multiple and open wound of [...] 11/17/19 23 LUMBAGO 12/24/2002 05/09/2007 LOC PRIM [id number] 12/24/200208/13 DEGENERATIVE SKIN DISORD 12/24/2002 VERTEBRAL FX [...] Pharmacist [facility] ([facility] ([facility] [phone] 03/03/2023 9:58 AM * Marlon Coppola PHARM Tech - 03/03/2023 9:56 AM EST Contacts Type Contact Phone/Fax 03/03/2023 06:59 AM EST Fax (Incoming) 03/03/2023 09:52 AM EST Phone (Outgoing) Lg Cooley "Akshat" (Self) [phone] (H) Subjective Patient Findings Negatives: Signs/symptoms of [...] as noted by Pharmacist: Yes Marlon Coppola museum archivist 03/03/2023, 9:56 AM * Sofie Danielle RPh [...] dose: not changed Additional Dosing Information: Description [facility] Nurses; [facility] - [phone] [facility] Pacemaker Gen Change 01/18/23- Dr. Carpenter would like INR 2-2.5 Tech to contact patient with dose instructions as noted. Sofie Danielle RPh 03/03/2023, 8:35 AM * Libby Vo, museum archivist - 03/03/2023 6:59 AM EST Patient Phone Numbers Received fax from [facility] for today's results of PT= 39.7 INR= 3.43 Thank you, Libby Vo Block Chopper Hand [facility] 03/03/2023,6:59 AM documented in this encounter Plan of Treatment Upcoming Encounters Date Type Department Care Team (Late st Contact Info) Description 06/06/2023 2:30 PM EDT Office Visit Family Medicine [address] [place] [phone] Jocelyne Desai [address] [place] [address] 06/08/2023 9:00 AM EDT Office Visit Cardiology [address] [place] [address] Greg Mckeon PA-C [address] [place] [address] 11/20/2023 2:00 PM EDT Office Visit Nephrology [address] [place] [address] Marycarmen Kowalski PA-C [address] [place] [address] 02/20/2024 12:30 PM EST Nurse Only Ancillary [address] [place] [address] [place], Nurse [address] [place] [address] Scheduled Procedures Name Priority Associated Diagnoses Date/Ti [...] Additional history exists CKD PHOS USE SMARTSET 21280 11/17/2023 100 05/2022, 09/29/2021, 05/12/2021, Additional history exists Diabetic Foot Exam 11/17/2023 11/16/2022, 0 05/05/2021, 11/22/2017, Additional history exists CKD HGB USE SMARTSET 63224 01/18/202401/17, 01/17/2023, 11/16/2022, Additional history exists Depression [...] this encounter Medical Devices Implanted Type Area Consultant Dietitian Device Identifier Shelf Expiration Date Model / Serial / Lot Shaft Fibula 6cm [id number] - [id number] Implanted:Qty: 1 on 09/05/2008 at OR [facility] Tissue - Human N/A: Spine Cervical MUSCULOSKELETAL TRANSPLANT FND 04/20/2010 [id number] / [id number] 0P / Stent Eso Gw 22x70 [id number] - [id number] Implanted:Qty: 1 on 01/21/2008 at OR [facility] N/A: Esophagus [employer] 04/12/2009 [id number] / / [id number] Depuy Uniplate Screw 14mm Implanted:Qty: 2 on 09/05/2008 at OR [facility] N/A: Spine Cervical [employer] 1897-06-017 / / Screw Inner Mntr [id number] - [id number] Implanted:Qty: 8 on 05/07/2010 at OR [facility] N/A: Spine Cervical JNJ : [employer] [id number] / / Envista Intraocular Lens Implanted:Qty: 1 on 03/10/2022 by Liang Marshall MD at OR [facility] Right: Eye BAUSCH & LOMB 08/13/2023 [id number] / [id number] / [id number] Envista Intraocular Lens Implanted:Qty: 1 on 03/24/2022 by Liang Marshall MD at OR [facility] Left: Eye BAUSCH & LOMB 07/13/2024 [id number] / [id number] / [id number] documented as of this encounter Procedures Procedure Name Priority Date/Time Associated Diagnosis Comments OUTSIDE LAB-PT/INR Routine 03/02/2023 documented in this encounter Results * OUTSIDE LAB-PT/INR (03/02/2023) INR-OUTSIDE LAB 3.43 03/02/2023 History Per Patient LABORATORY documented in this encounter Visit Diagnoses Diagnosis Chronic atrial fibrillation (HCC)- Primary Atrial fibrillation documented in this encounter Advance Directives Documents on File Type Date Recorded Patient Head Of Cytogenetics Expl anation POLST 01/26/2021 [place] OR DERS FOR LIFE-SUSTAINING TREATMENT Latest Code Status on File Code Status Date Activated Date Inactivated Comments No Code 03/24/2022 7:56 AM 03/24/2022 1:57 PM This or wendy reflects the patients wishes and were consensually agreed upon. Question Answer Comments Discussion of Advance Directives occurred with: Patient Does the patient have a Living Will? No Does the patient have Health Care Power of Federal District Law Clerk? No Code Status History Code Status Date Activated Date Inactivated Comments No Code 03/10/2022 7:41 AM 03/10/2022 2:02 PM This order reflects the patients wishes and were consensually agreed upon. Question Answer Comments Discussion of Advance Directives occurred with: Patient Does the patient have a Living Will? No Does the patient have Health Care Power of Federal District Law Clerk? No Full Code 05/07/2010 8:55 AM 05/11/2010 9:01 PM This order reflects the patients wishes and were consensually agreed upon. Question Answer Comments Discussion of Advance Directives occurred with: Patient Does the patient have a Living Will? No Does the patient have Health Care Power of Federal District Law Clerk? No Full Code 05/07/2010 6:07 AM [...] the patient have Health Care Power of Federal District Law Clerk? No Care Teams Hand Binder Cutter Relationship Specialty Start Date End Date Jocelyne Desai DO [address] [place] [address] [place] [address] PCP - General Internal Medicine 11/09/16 documented as of this encounter
--- OUTSIDE RECORDS SUMMARY | 2023-06-15 09:03 | External Medical Summary | Summary of Care ---
Author Name Unknown Organization [facility] Address [address] [facility] [address] Phone [phone] Care Team Providers Care Beamer Helper Name Role Phone DesaiElissaJocelyne Briggs DO Primary Care Provider + [phone] Reason for Visit * Reason Comments Dosage Adjustment Via Phone (anticoag Cl inic) Encounter Details Date Type Department Care Team (Latest Contact Info) Description 03/03/2023 6:30 AM EST Anticoagulation Pharmacy Call Center [address] [place] [address] [facility] [address] [place] [address] Chronic atrial fibrillation (HCC)* Allergies No known [...] different from the original. Good connectivity [facility] for wound care [phone] Televideo if needed. 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 He has significant history DM and PVD and recommended he still follow up with podiatry,. 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 Sofie Guillroy PharmD Clinical Pharmacist [facility] Services ([facility]) ([facility]) [phone] 03/03/2023 9:58 AM * Marlon Coppola PHARM Tech - 03/03/2023 9:56 AM EST Contacts Type Contact Phone/Fax 03/03/2023 06:59 AM EST Fax (Incoming) 03/03/2023 09:52 AM EST Phone (Outgoing) Lg Cooley "Akshat" (Self) [phone] (H) Subjective Patient Findings Negatives: Signs/symptoms of [...] as noted by Pharmacist: Yes Marlon Coppola perforator operator 03/03/2023, 9:56 AM * Sofie Danielle RPh [...] Description [facility] Nurses; fax - [phone] ([facility]) Pacemaker Gen Change 01/18/23- Dr. Carpenter would like INR 2-2.5 Tech to contact patient with dose instructions as noted. Sofie Danielle RPh 03/03/2023, 8:35 AM * Libby Vo, perforator operator - 03/03/2023 6:59 AM EST Patient Phone Numbers Received fax from [facility] for today's results of PT= 39.7 INR= 3.43 Thank you, Libby Vo Butadiene Convertor Operator [facility] Pharm[facility] 03/03/2023,6:59 AM documented in this encounter Plan of Treatment Upcoming Encounters Date Type Department Care Team (Late st Contact Info) Description 06/06/2023 2:30 PM EDT Office Visit Family Medicine [address] [place] [phone] Jocelyne Desai [address] [place] [address] 06/08/2023 9:00 AM EDT Office Visit Cardiology [address] [place] [address] Greg Mckeon PA-C [address] [place] [address] 11/20/2023 2:00 PM EDT Office Visit Nephrology [address] [place] [address] Marycarmen Kowalski PA-C [address] [place] [address] 02/20/2024 12:30 PM EST Nurse Only Ancillary [address] [place] [address] [place], Nurse [address] [place] [address] Scheduled Procedures Name Priority Associated Diagnoses Date/Ti [...] Additional history exists CKD PHOS USE SMARTSET 85461 11/17/2023 100 05/2022, 09/29/2021, 05/12/2021, Additional history exists Diabetic Foot Exam 11/17/2023 11/16/2022, 0 05/05/2021, 11/22/2017, Additional history exists CKD HGB USE SMARTSET 78213 01/18/202401/17, 01/17/2023, 11/16/2022, Additional history exists Depression [...] this encounter Medical Devices Implanted Type Area Brush Sander Device Identifier Shelf Expiration Date Model / Serial / Lot Shaft Fibula 6cm [id number] - [id number] Implanted:Qty: 1 on 09/05/2008 at OR [facility] [place] Tissue - Human N/A: Spine Cervical MUSCULOSKELETAL TRANSPLANT FND 04/20/2010 [id number] / [id number] 0P / Stent Eso Gw 22x70 [id number] - [id number] Implanted:Qty: 1 on 01/21/2008 at OR [facility] [place] [facility] N/A: Esophagus [employer] 04/12/2009 [id number] / / [id number] Depuy Uniplate Screw 14mm Implanted:Qty: 2 on 09/05/2008 at OR [facility] [place] N/A: Spine Cervical [employer] 1897-06-017 / / Screw Inner Mntr [id number] - [id number] Implanted:Qty: 8 on 05/07/2010 at OR [facility] [place] N/A: Spine Cervical JNJ : [employer] [id number] / / Envista Intraocular Lens Implanted:Qty: 1 on 03/10/2022 by Liang Marshall MD at OR [facility] Right: Eye BAUSCH & LOMB 08/13/2023 [id number] / [id number] / [id number] Envista Intraocular Lens Implanted:Qty: 1 on 03/24/2022 by Liang Marshall MD at OR [facility] Left: Eye BAUSCH & LOMB 07/13/2024 [id number] / [id number] / [id number] documented as of this encounter Procedures Procedure Name Priority Date/Time Associated Diagnosis Comments OUTSIDE LAB-PT/INR Routine 03/02/2023 documented in this encounter Results * OUTSIDE LAB-PT/INR (03/02/2023) INR-OUTSIDE LAB 3.43 03/02/2023 History Per Patient LABORATORY documented in this encounter Visit Diagnoses Diagnosis Chronic atrial fibrillation (HCC)- Primary Atrial fibrillation documented in this encounter Advance Directives Documents on File Type Date Recorded 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 Question Answer Comments Discussion of Advance Directives occurred with: Patient Does the patient have a Living Will? No Does the patient have Health Care Power of Diet Clerk? No Code Status History Code Status Date Activated Date Inactivated Comments No Code 03/10/2022 7:41 AM 03/10/2022 2:02 PM This order reflects the patients wishes and were consensually agreed upon. Question Answer Comments Discussion of Advance Directives occurred with: Patient Does the patient have a Living Will? No Does the patient have Health Care Power of Diet Clerk? No Full Code 05/07/2010 8:55 AM 05/11/2010 9:01 PM This order reflects the patients wishes and were consensually agreed upon. Question Answer Comments Discussion of Advance Directives occurred with: Patient Does the patient have a Living Will? No Does the patient have Health Care Power of Diet Clerk? No Full Code 05/07/2010 6:07 AM [...] the patient have Health Care Power of Diet Clerk? No Care Teams Beamer Helper Relationship Specialty Start Date End Date Jocelyne Desai DO [address] [place] [address] [place] [address] PCP - General Internal Medicine 11/09/16 documented as of this encounter
[2023-06-15 09:04] LABS: INR 3.7 (0.9-1.1); Prothrombin Time 35.6 Seconds (9.0-12.0)
--- OUTSIDE RECORDS SUMMARY | 2023-06-15 09:04 | External Medical Summary | Summary of Care ---
Author Name Unknown Organization [facility] Address [address] [facility] [address] Phone [phone] Care Team Providers Care Transformer Assembler Name Role Phone Silvia Armas Primary Care Provider [phone] Reason for Visit * Reason Comments Chronic Kidney Disease (CKD) Encounter Details Date Type Department Care Team (Late st Contact Info) Description 02/23/2023 3:00 PM EST Office Visit Nephrology [address] [place] [address] Jennifer Agustin MD [address] [facility] [place] [address] Stage 3b chronic kidney disease (HCC)*; Hypertension goal BP (blood pressure) < 130/80; Hyperparathyroidism, secondary renal (HCC); Persistent proteinuria; Other hypervolemia; Diabetic ulcer of toe of right foot associated with type 2 diabetes mellitus, limited to breakdown of skin (HCC) Allergies No known active allergiesdocumented as of this encounter (statuses as of 02/23/2023) Medications Medication Sig Dispensed Refills Start Date [...] as of this encounter (statuses as of 02/23/2023) Active Problems Patient Care Coordination No te Formatting of this note migh t be different from the original. Good connectivity [facility] for wound care [phone] Televideo if needed. Problem Noted Date Diagnosed Date History of RI (myocardial infarction) 11/09/2021 Trigger ring finger of left hand 11/09/2021 Overview: Also middle finger Diabetic ulcer of toe of rig ht foot associated with type 2 diabetes mellitus, limited to breakdown of skin 07/13/2021 Last Assessment & Plan: Ulcer appears overall improved. He has significant history DM and PVD and recommended he still follow up with podiatry,. Letter in chart from [facility] podiatry they were unable to get [...] 11/27/2018 H/O gastric bypass 11/27/2018 Overview: RYGB longterm current use of 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 1 Status [...] ICD-10 update of inactive term PLATT RESEARCH OTHER*[id number] 02/20/2007 ADVANCE DIRECTIVE INFORMATION 01/19/2005 Overview: Yes, Patient instructed to provide copy of advance directive for provider to review and to be scanned into Electronic Medical Record No, Advance Directive brochure given to patient at prior appointment. SPINAL STENOSIS-LUMBAR 09/23/2002 Vitamin D deficiency Cervical spinal stenosis documented as of this encounter (statuses as of 02/23/2023) Resolved Problems Problem Noted Date Diagnosed Date Resolved Date Depression, unspecified 11/09/2021 03/2 Depression, unspecified 11/09/202105/2022 Cellulitis of right leg 07/13/202105/2022 Last Assessment & Plan: Suspect this could be early/localized. Will treat with 7 days antibiotic. If pt cannot be reassess by Dr. Braxton office early next week will need [facility] provider recheck Multiple and open wound [...] 11/17/19 23 LUMBAGO 12/24/2002 05/09/2007 LOC PRIM [id number] 12/24/200208/13 DEGENERATIVE SKIN DISORD 12/24/2002 VERTEBRAL FX [...] as of this encounter (statuses as of 02/23/2023) Immunizations Name Administration Dates Next Due COVID-19 mRNA, LNP-s, No Pre serve, 2-Dose Series (Moderna) 03/19/2020 COVID-19 mRNA, LNP-s, No Pre serve, 2-Dose Series (Pfizer) 02/16/2021,04/09/2020,03/19/2020 COVID-19, MRNA-LNP, 23-24, P F, 30 MCG/0.3 mL, 12 YRS AND ABOVE, IM (E-TEK Dynamics-Comirnat) 11/16/2022 Covid-19, Mrna, Lnp-s, Pf, B ivalent, [...] Sign Reading Time Taken Comments Blood Pressure 136/84 02/23/2023 3:27 PM EST Pulse 64 02/23/2023 3:27 PM EST Temperature 36.3 C (97.3 F) 02/23/2023 3:24 PM ES T Respiratory Rate 18 02/23/2023 3:24 PM EST Oxygen Saturation 99% 02/23/2023 3:24 PM EST Inhaled Oxygen Concentration - - Weight 112 kg (247 lb) 02/23/2023 3:24 PM EST Height - - Body Mass Index 34.45 02/23/2023 1:42 PM EST documented in this encounter Patient Instructions * Patient Instructions* Jennifer Agustin MD - 02/23/2023 3:56 PM EST -labs today -will use labs to decide whether to restart jardiance and what BP med is next -avoid medicines like aleve, advil, ibuprofen, aspirin more than 81 mg daily and other NSAIDS whichare not good for kidney patients. Take only tylenol (acetaminophen) up to 2000 mg daily as needed for pain or as directed by your primary care provider. -eat a low sodium diet (less than 2000 mg or 1/2 tsp) daily documented in this encounter Progress Notes * Jennifer Agustin MD - 02/23/2023 3:38 PM EST NEPHROLOGY CLINIC NOTE Nephrology [address] [place] [address] 02/23/2023, 3:38 PM Patient Name: Lg Cooley BACKGROUND: 72 year old male presents for f/u of albuminuric CKD 3 from DM, HTN, obesity. PMH includes ischemic left MCA stroke 01/2018 managed at [facility] and for long time after amb w/ cane; DM since 1999 approx with triopathy, HTN dx'd after this; CAD s/p stent, PAD, MINERVA on BiPAP, post stroke urinary retention follows w/ urology; also with chronic atrial fibrillation on AC, tachy-geronimo syndrome status post pacemaker placement, peripheral vascular disease, morbid obesity status post Rouxen Y in [place] [facility], esophageal strictures, cervical and lumbar spine degenerative disc disease w/ lumb pain after remote fall and s/p excision to c spine discs. Also with severe urethral strictures requiring periodic urology care. After Anders en Y, came off of insulin. His creatinine runs about 1.4-1.7 in 2018 and in 2019. He has 1 g proteinuria since at least 2008 and probably earlier. Serologic workup in October 2018 was negative. March 15, 2018 catheterized urine specimen remarkable for Enterococcus. Maternal aunt was on dialysis for ? Reason. No other FH of renal disease. No stone hx. Admitted [facility] 05/05-05/15/19 w/ LLE cellulitis after a fall. Cellulitis treated with daptomycin and Zosyn, later Augmentin. Noted on vascular studies to have venous insufficiency and possible 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 stenosis for outpatient follow- up. Followed initially with wound clinic but now L foot sore healed. Admission creatinine 2.1, discharge creatinine 1.5. He was discharged [facility]. Active in his grandkids' lives. Helps get hsi brother to/from appts. Active in his high school class. TODAY 02/23/2023: Got pacemaker change in January. Admitted [facility] September for acute HFrEF and RLE cellulitis. Jardiance stopped at d/c d/t LE cellulitis; losartan also held. On ozempic now. Has prn lasix and using more often past month (at last OV in June had used once in past several weeks). Weighs self daily >> 234 #; slowly upcreeping. Seen at [facility] sleep clinic earlier today. Still w/ R foot wound slowly getting better; still going weekly to wound clinic. REVIEW OF SYSTEMS: No F/C, unintended wt loss or gain, energy level and appetite acceptable No palpitations, angina, orthopnea; recently more LE edema No cough, wheeze, or dyspnea No N/V/D/C/abd pain No dysuria, hematuria, nocturia >2X; no new/worrisome voiding sx No focal joint/muscle aches No presyncopal or orthostatic symptoms; no falls Current Outpatient Medications Medication Sig Dispense Refill ACETAMINOPHEN 500 MG PO TABS 2 tabs every 6 hours as needed for discomfort Cyanocobalamin (VITAMIN B-12) 1000 MCG Tablet Take 1 Tablet by mouth every evening. Cholecalciferol (VITAMIN D3) 50 MCG (2000 UT) Capsule Take 1 Capsule by mouth every evening. Flintstones w/Iron 18 MG Oral Tablet Chewable Take by mouth 1 Tablet every evening . Magnesium Oxide 400 MG Oral Capsule Take 1 Cap by mouth 2 times a day. (Patient taking differently:Take 1 Capsule by mouth in the morning.) 200 Cap 5 Aspirin 81 MG Oral Tablet Delayed Release Take 1 Tablet by mouth every evening. Atorvastatin Calcium 40 MG Oral Tablet (Lipitor) TAKE ONE TABLET BY MOUTH EVERY DAY 100 Tablet 1 Losartan Potassium 50 MG Oral Tablet (Cozaar) TAKE 1 TABLET BY MOUTH IN THE MORNING (Patient takingdifferently: Take 0.5 Tablets by mouth in the morning. Take 1/2 tablet by mouth daily (25 mg total).) 100 Tablet 1 Tamsulosin HCl 0.4 MG Oral Capsule (Flomax) TAKE 1 CAPSULE BY MOUTH IN THE MORNING 100 Capsule 3 Vitron-C 65-125 MG Oral Tablet (Iron-Vitamin C 65-125 mg per tab) Take 1 Tablet by mouth every evening. 100 Tablet 3 Ozempic (0.25 or 0.5 MG/DOSE) 2 MG/3ML Solution Pen-injector (Semaglutide(0.25 or 0.5MG/DOS)) inject 0.25 mg under the skin once a week x 4 weeks, then increase to 0.50 mg weekly thereafter. (Patienttaking differently: 0.5 mg once a week. inject 0.25 mg under the skin once a week x 4 weeks, then increase to 0.50 mg weekly thereafter.) 9 mL 1 Metoprolol Succinate ER 25 MG Oral Tablet Extended Release 24 Hour (toPROL XL) Take 1 Tablet by mouth in the morning. 100 Tablet 3 Warfarin Sodium 3 MG Oral Tablet (Coumadin) TAKE 1 TO 2 TABLETS BY MOUTH DAILY, DIRECTED BY COUMADIN CLINIC 180 Tablet 3 Furosemide 20 MG Oral Tablet (Lasix) TAKE ONE TABLET BY MOUTH EVERY DAY NEEDED FOR SWELLING 100 Tablet 1 No current facility-administered medications for this visit. Review of patient's allergies indicates: No Known Allergies PHYSICAL EXAMINATION: BP Readings from Last 6 Encounters: 02/23/23 136/84 02/23/23 110/62 02/16/23 118/60 12/06/22 112/72 11/29/22 118/72 11/16/22 112/70 Wt Readings from Last 6 Encounters: 02/23/23 112 kg (247 lb) 02/23/23 112 kg (247 lb) 02/16/23 109.7 kg (241 lb 12.8 oz) 12/06/22 108 kg (238 lb) 11/29/22 109.2 kg (240 lb 12.8 oz) 11/16/22 110.8 kg (244 lb 3.2 oz) Pulse Readings from Last 6 Encounters: 02/23/23 64 02/23/23 62 02/16/23 96 12/06/22 68 11/29/22 76 11/16/22 88 NAD, oriented x 3, ambulatory w/ case Normocephalic, atraumatic, eomi nonicteric sclerae MMM Supple neck RRR w/o m/g/r; 2+ BLE edema in tubigrips CTAB w/ reduced air mvt NT abd, +BS, soft No cyanosis or clubbing No rash No tremor, focal or global weakness; fluent but slightly delayed speech, excellent historian LABS: Recent Labs Units 01/17/23 0904 11/16/22 1520 04/13/22 0000 09/29/21 1340 05/12/21 0839 SODIUM - [facility] mmol/L 142 142 -- 140 142 POTASSIUM - [facility] mmol/L 4.3 4.1 -- 4.3 4.6 POTASSIUM-OUTSIDE LAB MMOL -- -- 4.4 -- -- CHLORIDE - [facility] mmol/L 107 113* -- 108* 107 CO2 - [facility] mmol/L 25 21* -- 21* 23 EGFR-OUTSIDE LAB ML/MIN -- -- 47.5 -- -- BUN - [facility] mg/dL 22* 27* -- 30* 37* CREATININE - [facility] mg/dL 1.7* 1.4* -- 1.7* 1.5* CREATININE-OUTSIDE LAB MG/DL -- -- 1.48* -- -- ESTIMATED GLOMERULAR FILTRATION RATE - [facility] mL/min 44* 54* -- 44* 50* Recent Labs Units 01/17/23 0904 11/16/22 1520 05/13/22 1441 09/29/21 1340 HGB - [facility] g/dL 13.6* 12.7* -- 16.0 FERRITIN - [facility] ng/mL -- -- 47 -- TRANSFERRIN SATURATION PERCENT - [facility] % -- -- 15 -- Recent Labs Units 01/17/23 0904 11/16/22 1520 06/22/22 1501 05/13/22 1441 09/29/21 1340 05/12/21 0839 CALCIUM - [facility] mg/dL 9.0 8.0* -- -- 8.5 8.7 PHOSPHORUS - [facility] mg/dL -- 2.6 -- -- 2.9 3.3 25-HYDROXY VITAMIN D - [facility] ng/mL -- 28 -- 27 24 -- PTH - [facility] pg/mL -- -- 129* -- 170* -- Recent Labs Units 11/16/22 1520 05/13/22 1441 11/09/21 1530 05/12/21 0839 HEMOGLOBIN A1C - [facility] % 6.5* 7.0* 6.7* 6.9* Recent Labs Units 11/16/22 1520 05/13/22 1441 09/29/21 1340 05/12/21 0839 ALBUMIN / CREATININE RATIO, URINE - [facility] mg/g Creat 857* 1,437* 1,817* 1,001* Recent Labs Units 09/29/21 1340 CLARITY, URINE - [facility] Clear GLUCOSE, URINE - [facility] mg/dL >=1000* BILIRUBIN, URINE - [facility] Negative KETONE, URINE - [facility] mg/dL Negative SPECIFIC GRAVITY, URINE - [facility] 1.009 BLOOD, URINE - [facility] Trace* PH, URINE - [facility] Units 6.0 PROTEIN, URINE - [facility] mg/dL 100* UROBILINOGEN, URINE - [facility] mg/dL Normal NITRITE, URINE - [facility] Negative ESTERASE, URINE - [facility] Small* BACTERIA, URINE - [facility] /HPF 0-25 WBC, URINE - [facility] /HPF 10-19* RBC, URINE - [facility] /HPF 0-2 ASSESSMENT AND PLAN: Stage 3b chronic kidney disease (HCC) (Primary) - URIC ACID - PTH - BASIC METABOLIC PANEL Hypertension goal BP (blood pressure) < 130/80 Hyperparathyroidism, secondary renal (HCC) - PTH Persistent proteinuria Other hypervolemia Follow Up: Return in about 6 months (around 08/24/2023) for clinic visit w/ [place], clinic visit w/ . | For: clinic visit w/ [place], clinic visit w/ | Check-out note: Waitlist CKD 3B with labile function and labs in early January around the time of pacer exchange at the worse end of his range of function. Patient with significant proteinuria and SGL T2 inhibitor contraindicated due to active and recurrent wounds on his lower extremities. With mild volume overload today though I would not call him acutely decompensated from a heart failure standpoint. Still his weight is up and he is more edematous despite using Lasix more they -labs today -plan to intensify diuretic regimen plus or minus increasing losartan as well -had considered resuming SGL T2 inhibitor but will defer for now Blood pressure elevation today consistent with volume overload -continue Toprol and losartan current doses -continue as needed Lasix and use frequently -update labs 750 mg albuminuria: Look to increase losartan and controlled blood pressure Update renal osteodystrophy labs and continue current D3 dose NOTES REVIEWED -[facility] September d/ summary Patient Instructions -labs today -will use labs to decide whether to restart jardiance and what BP med is next -avoid medicines like aleve, advil, ibuprofen, aspirin more than 81 mg daily and other NSAIDS whichare not good for kidney patients. Take only tylenol (acetaminophen) up to 2000 mg daily as needed for pain or as directed by your primary care provider. -eat a low sodium diet (less than 2000 mg or 1/2 tsp) daily I spent a total of 40-54 minutes (exact time 45 mins) on the date of service in preparation, delivery, and documentation of the care provided to Lg Cooley excluding any time spent in the performance of separately billed services. Jennifer Agustin MD Nephrology [address] [place] [address] CC: Ref: SELF[[id number]] NO STREET ADDRESS AVAILABLE None (office) None (fax) PCP: SILVIA ARMAS [address] [place] [address] [place] [address] [phone] This chart was completed in part utilizing [employer] Speech Voice Recognition Software. Randomword insertions, pronoun errors, and incomplete sentences are an occasional consequence of this system due to software limitations, and ambient noise. Any questions or concerns about the content, text, or information contained within the body of this dictation should be directly addressed to the provider for clarification. documented in this encounter Nursing Notes * Libby Hurd RN - 02/23/2023 3:26 PM EST Follow up visit today. Had pace maker changed in January. Procedure was routine and no complications. NO recent illness documented in this encounter Plan of Treatment Upcoming Encounters Date Type Department Care Team (Late st Contact Info) Description 03/03/2023 6:30 AM EST Anticoagulation Pharmacy Call Center WB [phone] [facility] [place] [address] [facility] [address] [facility] [place] [address] 06/06/2023 2:30 PM EDT Office Visit Family Medicine [address] [place] [phone] [place] [address] 06/08/2023 9:00 AM EDT Office Visit Cardiology [address] [place] [address] Greg Mckeon PA-C [address] [place] [address] 11/20/2023 2:00 PM EDT Office Visit Nephrology [address] [place] [address] Marycarmen Kowalski PA-C [address] [place] [address] 02/20/2024 12:30 PM EST Nurse Only Ancillary [address] [place] [address] [place], Nurse Annual [address] [place] [address] Pending Results Name Type Priority Associated Diagnoses Date /Time URIC ACID Lab Routine Stage 3b chronic kidney disease (HCC) 02/23/2023 4:05 PM EST PTH Lab Routine Stage 3b chronic kidney disease (HCC) Hyperparathyroidism, secondary renal (HCC) 02/23/2023 4:05 PM EST BASIC METABOLIC PANEL Lab Routine Stage 3b chronic kidney disease (HCC) 02/23/2023 4:05 PM EST Scheduled Procedures Name Priority Associated Diagnoses Date/Ti me COLONOSCOPY FLEXIBLE PROXIMA L DIAGNOSTIC Recall Screening for colon cancer Health Maintenance Due Date Last Done Comments Cologuard 1997 Sigmoidoscopy 1997 Fecal Occult Blood Test 09/02/2009 09/02/2008, 05/04 Diabetic Eye Exam 12/30/2022 12/30/2021, , 12/28/2021, Additional history exists HbA1c 05/18/2023 11/16/2022, 04/15, 11/09/2021, Additional history exists GFR 07/19/2023 01/17/2023, 05/2022, 04/13/2022, Additional history exists Albumin/Creatinine Ratio 11/17/2023 023, 05/13/2022, 09/29/2021, Additional history exists CKD PHOS USE SMARTSET 51901 11/17/202305/2022, 09/29/2021, 05/12/2021, Additional history exists Diabetic Foot Exam 11/17/2023 11/16/2022, 0 05/05/2021, 11/22/2017, Additional history exists CKD HGB USE SMARTSET 55169 01/18/202401/17, 01/17/2023, 11/16/2022, Additional history exists Depression [...] this encounter Medical Devices Implanted Type Area Avionics Shop Supervisor Device Identifier Shelf Expiration Date Model / Serial / Lot Shaft Fibula 6cm [id number] - [id number] Implanted:Qty: 1 on 09/05/2008 [place] [facility] Tissue - Human N/A: Spine Cervical MUSCULOSKELETAL TRANSPLANT FND 04/20/2010 [id number] / [id number] / Stent Eso Gw 22x70 [id number] - [id number] Implanted:Qty: 1 on 01/21/2008 at [place] [facility] N/A: Esophagus [employer] 04/12/2009 [id number] / / [id number] Depuy Uniplate Screw 14mm Implanted:Qty: 2 on 09/05/2008 at [place] [facility] N/A: Spine Cervical [employer] [id number] / / Screw Inner Mntr [id number] - [id number] Implanted:Qty: 8 on 05/07/2010 at [place] [facility] N/A: Spine Cervical JN[place] : [employer] [id number] / / Envista Intraocular Lens Implanted:Qty: 1 on 03/10/2022 by Liang Marshall MD at OR [facility] Right: Eye [employer] 08/13/2023 [id number] / [id number] / [id number] Envista Intraocular Lens Implanted:Qty: 1 on 03/24/2022 by Liang Marshall MD at OR [facility] Left: Eye [employer]OM[employer] 07/13/2024 [id number] / [id number] / [id number] documented as of this encounter Visit Diagnoses Diagnosis Stage 3b chronic kidney disease (HCC)- Primary Hypertension goal BP (blood pressure) < 130/80 Unspecified essential hypertension Hyperparathyroidism, secondary renal (HCC) Secondary hyperparathyroidism (of renal origin) Persistent proteinuria Proteinuria Other hypervolemia Diabetic ulcer of toe of right foot associated with type 2 diabetes mellitus, limited to breakdown of skin (HCC) documented in this encounter Advance Directives Documents on File Type Date Recorded Patient Piano Maker Expl anation POLST 01/26/2021 [place] DERS [...] the patient have Health Care Power of Special Effects Person? No Code Status History Code Status Date Activated Date Inactivated Comments No Code 03/10/2022 7:41 AM 03/10/2022 2:02 PM This order reflects the patients wishes and were consensually agreed upon. Question Answer Comments Discussion of Advance Directives occurred with: Patient Does the patient have a Living Will? No Does the patient have Health Care Power of Special Effects Person? No Full Code 05/07/2010 8:55 AM 05/11/2010 9:01 PM This order reflects the patients wishes and were consensually agreed upon. Question Answer Comments Discussion of Advance Directives occurred with: Patient Does the patient have a Living Will? No Does the patient have Health Care Power of Special Effects Person? No Full Code 05/07/2010 6:07 AM 05/07/2010 [...] the patient have Health Care Power of Special Effects Person? No Care Teams Transformer Assembler Relationship Specialty Start Date End Date Silvia Armas DO [address] [place] [address] [place] [address] PCP - General Internal Medicine 11/09/16 documented as of this encounter"
--- OUTSIDE RECORDS SUMMARY | 2023-06-15 09:04 | External Medical Summary | Summary of Care ---
Author Name Unknown Organization [facility] Address [address] [facility] [place] [address] Phone [phone] Care Team Providers Care Assistant Account Executive Name Role Phone Jocelyne Desai DO Primary Care Provider Reason for Visit * Reason Onset Date Comments Sleep Apnea Device 02/16/2023 Re: replaceme nt BIPAP Encounter Details Date Type Department Care Team (Late st Contact Info) Description 02/16/2023 Telephone Family Medicine [address] [place] [address] Jocelyne Desai DO [address] [place], [place] [address] [address] Sleep Apnea Device (Re: replacement BIPAP) Allergies No known active allergiesdocumented as of this encounter (statuses as of 03/01/2023) Medications Medication Sig Dispensed Refills Start Date [...] as of this encounter (statuses as of 03/01/2023) Active Problems Patient Care Coordination No te Formatting of this note migh t be different from the original. Good connectivity [facility] for wound care [phone] Televideo if needed. Problem Noted Date Diagnosed [...] up with podiatry,. Letter in chart from [facility] podiatry they were unable to get [...] 11/27/2018 H/O gastric bypass 11/27/2018 Overview: RYGB senior care current use of 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 1 [...] ICD-10 update of inactive term PLATT RESEARCH OTHER*[id number] 02/20/2007 ADVANCE DIRECTIVE INFORMATION 01/19/2005 Overview: Yes, Patient instructed to provide copy of advance directive for provider to review and to be scanned into Electronic Medical Record No, Advance Directive brochure given to patient at prior appointment. SPINAL STENOSIS-LUMBAR 09/23/2002 Vitamin D deficiency Cervical spinal stenosis documented as of this encounter (statuses as of 03/01/2023) Resolved Problems Problem Noted Date Diagnosed Date Resolved Date Depression, unspecified 11/09/2021/2 Depression, unspecified 11/09/20210 05/2022 Cellulitis of right leg 07/13/20210 05/2022 Last Assessment & Plan: Suspect this could be early/localized. Will treat with 7 days antibiotic. If pt cannot be reassess by Dr. Braxton office early next week will need [facility] provider recheck Multiple and open wound [...] 11/17/19 23 LUMBAGO 12/24/2002 05/09/2007 LOC PRIM [id number] 12/24/200208/13 DEGENERATIVE SKIN DISORD 12/24/2002 VERTEBRAL FX [...] as of this encounter (statuses as of 03/01/2023) Immunizations Name Administration Dates Next Due COVID-19 mRNA, LNP-s, No Pre serve, 2-Dose Series (Moderna) 03/19/2020 COVID-19 mRNA, LNP-s, No Pre serve, 2-Dose Series (Pfizer) 02/16/2021,04/09/2020,03/19/2020 COVID-19, MRNA-LNP, 23-24, P F, 30 MCG/0.3 mL, 12 YRS AND ABOVE, IM (Buccaneer-Comirnaty) 11/16/2022 Covid-19, Mrna, Lnp-s, Pf, B ivalent, [...] encounter Miscellaneous Notes * Telephone Encounter - Moises Griffin OSA - 02/16/2023 3:01 PM EST Pt is scheduled for February 23 at 1:30pm with Diane Marc. * Telephone Encounter - Alaina Ross LPN - 02/16/2023 1:29 PM EST Pt hasn't been seen by sleep since 2019. He will require an appointment. I spoke with the pt, who reluctantly ("this wasn't my idea, and I don't think I need it") agreed norma contacted to schedule a follow-up. Please reach out to pt, he asked that it be by phone, to schedule. * Telephone Encounter - Nara Bernstein RN - 02/16/2023 12:07 PM EST Patient was seen for his annual wellness visit and we discussed his compliance with his BiPAP, lastyear he was trying to get a new machine because of the recall. Patient states he has tried multipletimes but he still has not got it resolved. Patient has been without his BiPAP for 1 1/2 yrs. Patient did also just have his pacemaker replaced in January. I counseled patient I would message sleep med for advice. Patient does live in [place] if they would be able to help get him another BiPAP, if he can use [facility]'s home care or [place] home patient in [place] it might be easier for patient as long as its covered. Message sent to sleep med for advice. documented in this encounter Plan of Treatment Upcoming Encounters Date Type Department Care Team (Brian Contact Info) Description 03/03/2023 6:30 AM EST Anticoagulation Pharmacy Call Center WB [address] [facility] [place] [address] Ccps, [facility] 58 60 [facility] [place] [address] 06/06/2023 2:30 PM EDT Office Visit Family Medicine [address] [place] [phone] Jocelyne Desai[address] [place] [address] 06/08/2023 9:00 AM EDT Office Visit Cardiology [address] [place] [address] Greg Mckeon PARocael [address] [place] [address] 11/20/2023 2:00 PM EDT Office Visit Nephrology [address] [place] [address] ZemaMarycarmen lindsey PA-C [address] [place] [address] 02/20/2024 12:30 PM EST Nurse Only Ancillary [address] [place] [address] [place], Nurse [address] [place] [address] Scheduled Procedures Name Priority Associated Diagnoses Date/Ti me COLONOSCOPY FLEXIBLE PROXIMA L DIAGNOSTIC Recall Screening for colon cancer Health Maintenance Due Date Last Done Comments Cologuard 1997 Sigmoidoscopy 1997 Fecal Occult Blood Test 09/02/2009 09/02/2008, 05/04 Diabetic Eye Exam 12/30/2022 12/30/2021, , 12/28/2021, Additional history exists HbA1c 05/18/2023 11/16/2022, 03/3 02/2022, 11/09/2021, Additional history exists GFR 08/24/2023 02/23/2023, 1206/2022, 11/16/2022, Additional history exists Albumin/Creatinine Ratio 11/17/2023 023, 05/13/2022, 09/29/2021, Additional history exists CKD PHOS USE SMARTSET 43484 11/17/2023 100 05/2022, 09/29/2021, 05/12/2021, Additional history exists Diabetic Foot Exam 11/17/2023 11/16/2022, 0 05/05/2021, 11/22/2017, Additional history exists CKD HGB USE SMARTSET 29173 01/18/202401/17, 01/17/2023, 11/16/2022, Additional history exists Depression [...] this encounter Medical Devices Implanted Type Area Sterile Processing Technician Device Identifier Shelf Expiration Date Model / Serial / Lot Shaft Fibula 6cm [id number] - [id number] [place]ed:Q[place] 1 [place] [facility] [place] Human N/A: Spine Cervical MUSCULOSKELETAL TRANSPLANT FND 04/20/2010 [id number] / [id number] / Stent Eso Gw 22x70 [id number] - [id number] Implanted:Qty: 1 on 01/21/2008 [place] [facility] [place]/A: Esophagus AL[employer]US INC 04/12/2009 [id number] / / [id number] Depuy Uniplate Screw 14mm Implanted:Qty: 2 on 09/05/2008 [place] [facility] [place]A: Spine Cervical TAMMY & TAMMY DEPUY 1897-06-017 / / Screw Inner Mntr [id number] - [id number] Implanted:Qty: 8 on 05/07/2010 [place] [facility] [place]A: Spine Cervical JNJ : ETH[employer] [id number] / / Envista Intraocular Lens Implanted:Qty: 1 on 03/10/2022 by Liang Marshall MD at OR [facility] Right: Eye BAUSCH & LOMB 08/13/2023 [id number] / [id number] / [id number] Envista Intraocular Lens Implanted:Qty: 1 on 03/24/2022 by Liang Marshall MD at OR [facility] Left: Eye BAUSCH & LOMB 07/13/2024 [id number] / [id number] / [id number] documented as of this encounter Advance Directives Documents on File Type Date Recorded 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 Question Answer Comments Discussion of Advance Directives occurred with: Patient Does the patient have a Living Will? No Does the patient have Health Care Power of Mine Patrol? No Code Status History Code Status Date Activated Date Inactivated Comments No Code 03/10/2022 7:41 AM 03/10/2022 2:02 PM This order reflects the patients wishes and were consensually agreed upon. Question Answer Comments Discussion of Advance Directives occurred with: Patient Does the patient have a Living Will? No Does the patient have Health Care Power of Mine Patrol? No Full Code 05/07/2010 8:55 AM 05/11/2010 9:01 PM This order reflects the patients wishes and were consensually agreed upon. Question Answer Comments Discussion of Advance Directives occurred with: Patient Does the patient have a Living Will? No Does the patient have Health Care Power of Mine Patrol? No Full Code 05/07/2010 6:07 AM 05/07/2010 [...] the patient have Health Care Power of Mine Patrol? No Care Teams Assistant Account Executive Relationship Specialty Start Date End Date Jocelyne Desai DO [address] [place] [address] [place] [address] PCP - General Internal Medicine 11/09/16 documented as of this encounter
--- OUTSIDE RECORDS SUMMARY | 2023-06-15 09:05 | External Medical Summary | Summary of Care ---
Author Name Unknown Organization [facility] Address [address] [facility] [place] [address] Phone [phone] Care Team Providers Care Supervisor Webbing Name Role Phone Lloyd Jocelyne Briggs Primary Care Provider + [phone] Reason for Visit * Reason Comments Outpatient Testing Encounter Details Date Type Department Care Team (Late st Contact Info) Description 02/23/2023 4:10 PM EST Laboratory Laboratory [address] [place] [phone] [address] [place] [address] Arrived Allergies No known active allergiesdocumented as of [...] Good connectivity [facility] for wound care [phone] Televideo if needed. Problem Noted Date Diagnosed [...] with podiatry,. Letter in chart from [facility] podiatry they were unable to [...] past. Cerebrovascular disease, arteriosclerotic, post- stroke 03/02/2018 Essential hypertension with goal blood pressure less than 130/80 12/21/2015 Vitamin B12 deficiency 12/21/2015 Chronic atrial fibrillation [...] ICD-10 update of inactive term PLATT RESEARCH OTHER*[id number] 02/20/2007 ADVANCE DIRECTIVE INFORMATION 01/19/2005 Overview: Yes, [...] early next week will need [facility] provider recheck Multiple and open wound [...] 11/14/2016 03/02/2018 Overview: Per Obesity protocol #1 HTN, goal below 130/80 06/03/201412/20 Peripheral autonomic [...] 11/17/19 23 LUMBAGO 12/24/2002 05/09/2007 LOC PRIM [id number] 12/24/200208/13 DEGENERATIVE SKIN DISORD 12/24/2002 VERTEBRAL FX [...] Call Center WB [address] Public [place] [address] [facility] 58 60 [facility] [place] [address] 06/06/2023 2:30 PM EDT Office Visit Family Medicine [address] [place] [phone] Jocelyne Desai[address] [place] [address] 06/08/2023 9:00 AM EDT Office Visit Cardiology [address] [place] [address] Greg Mckeon PA-C [address] [place] [address] 11/20/2023 2:00 PM EDT Office Visit Nephrology [address] [place] [address] ZeMarycarmen alan PA-C [address] [place] [address] 02/20/2024 12:30 PM EST Nurse Only Ancillary [address] [place] [address] [place], Nurse [address] [place] [address] Scheduled Procedures Name Priority Associated Diagnoses Date/Ti [...] Additional history exists CKD PHOS USE SMARTSET 65980 11/17/202305/2022, 09/29/2021, 05/12/2021, Additional history exists Diabetic Foot Exam 11/17/2023 11/16/2022, 0 05/05/2021, 11/22/2017, Additional history exists CKD HGB USE SMARTSET 12914 01/18/202401/17, 01/17/2023, 11/16/2022, Additional history exists Depression [...] this encounter Medical Devices Implanted Type Area Nutrition Coordinator Device Identifier Shelf Expiration Date Model / Serial / Lot Shaft Fibula 6cm [id number] - [id number] Implanted:Qty: 1 on 09/05/2008 at [place] [facility] Tissue - Human N/A: Spine Cervical MUSCULOSKELETAL TRANSPLANT FND 04/20/2010 [id number] / [id number] 0P / Stent Eso Gw 22x70 [id number] - [id number] Implanted:Qty: 1 on 01/21/2008 at [place] [facility] N/A: Esophagus ALVEOLUS INC 04/12/2009 [id number] / / [id number] Depuy Uniplate Screw 14mm Implanted:Qty: 2 on 09/05/2008 at [place] [facility] N/A: Spine Cervical TAMMY & TAMMY DEPUY 1897-06-017 / / Screw Inner Mntr [id number] - [id number] Implanted:Qty: 8 on 05/07/2010 at [place] [facility] N/A: Spine Cervical JNJ : [employer] [id number] / / Envista Intraocular Lens Implanted:Qty: 1 on 03/10/2022 by Liang Marshall MD at OR [facility] Right: Eye BAUSCH & LOMB 08/13/2023 [id number] / [id number] / [id number] Envista Intraocular Lens Implanted:Qty: 1 on 03/24/2022 by Liang Marshall MD at OR [facility] Left: Eye BAUSCH & LOMB 07/13/2024 [id number] / [id number] / [id number] documented as of this encounter Advance Directives Documents on File Type Date Recorded 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 Question Answer Comments Discussion of Advance Directives occurred with: Patient Does the patient have a Living Will? No Does the patient have Health Care Power of Garment Steamer? No Code Status History Code Status Date Activated Date Inactivated Comments No Code 03/10/2022 7:41 AM 03/10/2022 2:02 PM This order reflects the patients wishes and were consensually agreed upon. Question Answer Comments Discussion of Advance Directives occurred with: Patient Does the patient have a Living Will? No Does the patient have Health Care Power of Garment Steamer? No Full Code 05/07/2010 8:55 AM 05/11/2010 9:01 PM This order reflects the patients wishes and were consensually agreed upon. Question Answer Comments Discussion of Advance Directives occurred with: Patient Does the patient have a Living Will? No Does the patient have Health Care Power of Garment Steamer? No Full Code 05/07/2010 6:07 AM 05/07/2010 [...] the patient have Health Care Power of Garment Steamer? No Care Teams Supervisor Webbing Relationship Specialty Start Date End Date Jocelyne Desai DO [address] [place] [address] [place] [address] PCP - General Internal Medicine 11/09/16 documented as of this encounter
--- OUTSIDE RECORDS SUMMARY | 2023-06-15 09:05 | External Medical Summary | Summary of Care ---
Author Name Unknown Organization [facility] [address] [facility] [address] Phone [phone] Care Team Providers Care Senior J2Ee Developer Name Role Phone Jocelyne Desai Primary Care Provider [phone] Reason for Visit * Reason Onset Date Comments Advice 01/20/2023 Encounter Details Date Type Department Care Team (Late st Contact Info) Description 01/20/2023 Telephone Cardiology, [facility] [address] [facility] [place] [address] Acacia Carpenter DO [address] [facility] [place] [address] Advice Allergies No known active allergiesdocumented as of [...] the morning. 100 Tablet 3 11/08/2022 Active Furosemide 20 MG Oral Tablet (Lasix)Indication s:Stage 3 chronic kidney disease, unspecified whether stage 3a or 3b CKD (HCC),Persistent proteinuria TAKE ONE TABLET BY MOUTH EVERY DAY NEEDED FOR SWELLING 100 Tablet 1 05/13/2022 3 Discontinue d(Refill) Warfarin Sodium 3 MG Oral Tablet (Coumadin)Indicat ions:Chronic atrial fibrillation (HCC) TAKE 1 TO 2 TABLETS BY MOUTH DAILY, DIRECTED BY [facility]MADIN CLINIC 180 Tablet 2 11/09/2021 3 Discontinue d(Refill) documented as of this encounter (statuses as of 02/23/2023) Active Problems Patient Care Coordination No te Formatting of this note migh t be different from the original. Good connectivity [facility] for wound care [phone] Televideo if needed. 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 He has significant history DM and PVD and recommended he still follow up with podiatry,. Letter in chart from [facility] podiatry they were unable to [...] 11/27/2018 H/O gastric bypass 11/27/2018 Overview: RYGB [facility] current use of 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 1 Status [...] ICD-10 update of inactive term PLATT RESEARCH OTHER*[id number] 02/20/2007 ADVANCE DIRECTIVE INFORMATION 01/19/2005 Overview: Yes, [...] office early next week will need [facility] provider recheck Multiple and open [...] 11/17/19 23 LUMBAGO 12/24/2002 05/09/2007 LOC PRIM [id number] 12/24/200208/13 DEGENERATIVE SKIN DISORD 12/24/2002 VERTEBRAL FX [...] encounter Miscellaneous Notes * Telephone Encounter - Cara Weathers CRNP - 02/23/2023 1:17 PM EST Medtronic, Seen in office 01/27. * Telephone Encounter - Opal Daily OSA - 01/20/2023 1:17 PM EST Is this a [facility] or [employer]? * Telephone Encounter - Zahra Morillo LPN - 01/20/2023 11:59 AM EST Tonia calling from [facility]. She stated that Patient had pacemaker placement on 01/18/2023 at [facility], she stated that paperwork sayhe is to have a follow up appt in 1 week but no follow up appointment scheduled. Please reach out to schedule appointment. documented in this encounter Plan of Treatment Upcoming Encounters Date Type Department Care Team (Late st Contact Info) Description 02/23/2023 1:30 PM EST Office Visit Sleep Disorders Ctr [facility] [place] [address] [place] [phone] Diane Marc CRNP [address] [place] [address] 02/23/2023 3:00 PM EST Office Visit Nephrology [place] [place] [phone] Jennifer Agustin MD [address] [place] [address] [place] [address] 03/03/2023 6:30 AM EST Anticoagulation Pharmacy Call Center [address] [place] [facility] [place] [address] Ccps, [facility] 58 60 [facility] [place] [address] 06/06/2023 2:30 PM EDT Office Visit Family Medicine [address] [place] [phone] Jocelyne Desai, [address] [place] [address] 06/08/2023 9:00 AM EDT Office Visit Cardiology [address] [place] [address] Greg Mckeon PA-C [address] [place] [address] 02/20/2024 12:30 PM EST Nurse Only Ancillary [address] [place] [address] [place], Nurse [address] [place] [address] Scheduled Procedures Name Priority Associated Diagnoses Date/Ti me COLONOSCOPY FLEXIBLE PROXIMA L DIAGNOSTIC Recall Screening for colon cancer Health Maintenance Due Date Last Done Comments Cologuard 1997 Sigmoidoscopy 1997 Fecal Occult Blood Test 09/02/2009 09/02/2008, 05/04 Diabetic Eye Exam 12/30/2022 12/30/2021, , 12/28/2021, Additional history exists HbA1c 05/18/2023 11/16/2022, 04/15, 11/09/2021, Additional history exists GFR 07/19/2023 01/17/2023, 1005/2022, 04/13/2022, Additional history exists Albumin/Creatinine Ratio 11/17/2023 023, 05/13/2022, 09/29/2021, Additional history exists CKD PHOS USE SMARTSET 52348 11/17/2023 10/0 05/2022, 09/29/2021, 05/12/2021, Additional history exists Diabetic Foot Exam 11/17/2023 11/16/2022, 0 05/05/2021, 11/22/2017, Additional history exists CKD HGB USE SMARTSET 03926 01/18/202401/17, 01/17/2023, 11/16/2022, Additional history exists Depression [...] this encounter Medical Devices Implanted Type Area Analytics Analyst Device Identifier Shelf Expiration Date Model / Serial / Lot Shaft Fibula 6cm [id number] - [id number] Implanted:Qty: 1 on 09/05/2008 at [place] [facility] [place] Tissue - Human N/A: Spine Cervical MUSCULOSKELETAL TRANSPLANT FND 04/20/2010 [id number] / [id number] / Stent Eso Gw 22x70 [id number] - [id number] Implanted:Qty: 1 on 01/21/2008 at [place] [facility] [place] N/A: Esophagus ALVEOLUS INC 04/12/2009 [id number] / / [id number] Depuy Uniplate Screw 14mm Implanted:Qty: 2 on 09/05/2008 at [place] [facility] [place] N/A: Spine Cervical TAMMY & TAMMY DEPUY 1897-06-017 / / Screw Inner Mntr [id number] - [id number] Implanted:Qty: 8 on 05/07/2010 at [place] [facility] [place] N/A: Spine Cervical JNJ : ETHICON [employer] [id number] / / Envista Intraocular Lens Implanted:Qty: 1 on 03/10/2022 by Liang Marshall MD at OR [facility] Right: Eye BAUSCH & LOMB 08/13/2023 [id number] / [id number] / [id number] Envista Intraocular Lens Implanted:Qty: 1 on 03/24/2022 by Liang Marshall MD at OR [facility] Left: Eye BAUSCH & LOMB 07/13/2024 [id number] / [id number] / [id number] documented as of this encounter Advance Directives Documents on File Type Date Recorded 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 Question Answer Comments Discussion of Advance Directives occurred with: Patient Does the patient have a Living Will? No Does the patient have Health Care Power of Spanish Lecturer? No Code Status History Code Status Date Activated Date Inactivated Comments No Code 03/10/2022 7:41 AM 03/10/2022 2:02 PM This order reflects the patients wishes and were consensually agreed upon. Question Answer Comments Discussion of Advance Directives occurred with: Patient Does the patient have a Living Will? No Does the patient have Health Care Power of Spanish Lecturer? No Full Code 05/07/2010 8:55 AM 05/11/2010 9:01 PM This order reflects the patients wishes and were consensually agreed upon. Question Answer Comments Discussion of Advance Directives occurred with: Patient Does the patient have a Living Will? No Does the patient have Health Care Power of Spanish Lecturer? No Full Code 05/07/2010 6:07 AM 05/07/2010 [...] the patient have Health Care Power of Spanish Lecturer? No Care Teams Senior J2Ee Developer Relationship Specialty Start Date End Date Jocelnye Desai DO [address] [place] [address] [place] [address] PCP - General Internal Medicine 11/09/16 documented as of this encounter
--- OUTSIDE RECORDS SUMMARY | 2023-06-15 09:05 | External Medical Summary ---
Author Name Unknown Address Unknown Organization K01:LABORATORY [facility] - [address] [place] [address] Laboratory Report Ordering Provider Test Date Status KUSHAL DOUGHERTY 02/23/2023 16:05:14 Final Observation Date Value Abnormality Reference (Units ) Status Parathyrin.intact [Mass/volume] in Serum or Plasma 02/23/2023 16:05:14 197 Above high normal 15-65 (pg/mL) Final Performing Location LABORATORY [facility] - [address] [place] [address]
--- OUTSIDE RECORDS SUMMARY | 2023-06-15 09:06 | External Medical Summary ---
Author Name Unknown Address Unknown Organization K01:LABORATORY [facility] - [address] [place] [address] Laboratory Report Ordering Provider Test Date Status KUSHAL DOUGHERTY 02/23/2023 16:05:14 Final Observation Date Value Abnormality Reference (Units ) Status Uric Acid 02/23/2023 16:05:14 6.0 3.4-7.0 (m g/dL) Final Performing Location LABORATORY C - [address] [place] [address]
--- OUTSIDE RECORDS SUMMARY | 2023-06-15 09:06 | External Medical Summary | Summary of Care ---
Author Name Unknown Organization [facility] Address [address] [facility] [address] Phone [phone] Care Team Providers Care Polysom Tech Name Role Phone DesaiElissaJocelyne Briggs DO Primary Care Provider + [phone] Reason for Visit * Reason Comments Dosage Adjustment Via Phone (anticoag Cl inic) Encounter Details Date Type Department Care Team (Latest Contact Info) Description 02/17/2023 6:15 AM EST Anticoagulation Pharmacy Call Center [phone] [place] [address] [facility] [address] [place] [address] Chronic atrial fibrillation (HCC)* Allergies No known active allergiesdocumented as of this encounter (statuses as of 02/17/2023) Medications Medication Sig Dispensed Refills Start Date [...] as of this encounter (statuses as of 02/17/2023) Active Problems Patient Care Coordination No te Formatting of this note migh t be different from the original. Good connectivity [facility] for wound care [phone] Televideo if needed. 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 He has significant history DM and PVD and recommended he still follow up with podiatry,. Letter in chart from [facility] podiatry they were unable to get [...] 11/27/2018 H/O gastric bypass 11/27/2018 Overview: [employer] current use of 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 1 Status [...] ICD-10 update of inactive term PLATT RESEARCH OTHER*[id number] 02/20/2007 ADVANCE DIRECTIVE INFORMATION 01/19/2005 Overview: Yes, Patient instructed to provide copy of advance directive for provider to review and to be scanned into Electronic Medical Record No, Advance Directive brochure given to patient at prior appointment. SPINAL STENOSIS-LUMBAR 09/23/2002 Vitamin D deficiency Cervical spinal stenosis documented as of this encounter (statuses as of 02/17/2023) Resolved Problems Problem Noted Date Diagnosed Date Resolved Date Depression, unspecified 11/09/2021 03/2 Depression, unspecified 11/09/20210 05/2022 Cellulitis of right leg 07/13/202105/2022 Last Assessment & Plan: Suspect this could be early/localized. Will treat with 7 days antibiotic. If pt cannot be reassess by Dr. Braxton office early next week will need [facility] provider recheck Multiple and open wound [...] 11/17/19 23 LUMBAGO 12/24/2002 05/09/2007 LOC PRIM [id number] 12/24/200208/13 DEGENERATIVE SKIN DISORD 12/24/2002 VERTEBRAL FX [...] as of this encounter (statuses as of 02/17/2023) Immunizations Name Administration Dates Next Due COVID-19 [...] of this encounter Progress Notes * Madai Perera PHARM Tech - 02/17/2023 10:00 AM EST Contacts Type Contact Phone/Fax 02/17/2023 09:58 AM EST Phone (Outgoing) Lg Cooley "Akshat" (Self) [phone] (H) Spoke to Patient Subjective Patient Findings [...] as noted by Pharmacist: Yes AMOS Jensen 02/17/2023, 10:00 AM * Estefania Palacios [facility] - 02/17/2023 8:43 AM EST Images from the original note were not included. Coumadin Clinic (region specific) Objective Current Warfarin Dose As of 02/17/2023 Warfarin maintenance plan: 1.5 mg (3 mg x 0.5) every Mon, Fri; 3 mg (3 mg x 1) all other days INR Result As of 02/17/2023 INR goal: 2.0-3.0 INR used for dosin.8 (02/16/2023) Assessment & Plan Warfarin Plan As of 02/17/2023 Full warfarin instructions: 02/17: 3 mg; Otherwise 1.5 mg every Mon, Fri; 3 mg all other days Next INR check: 03/02/2023 Repeat PT/INR in 2 week(s) Weekly dose: not changed Additional Dosing Information: Description [facility] Nurses; fax - [phone] (prev [facility]) Pacemaker Gen Change 01/18/23- Dr. Carpenter would like INR 2-2.5 Tech to contact patient with dose instructions as noted. Estefania Palacios RPh 02/17/2023, 8:44 AM documented in this encounter Plan of Treatment Upcoming Encounters Date Type Department Care Team (Late st Contact Info) Description 02/23/2023 1:30 PM EST [facility] [address] [place] [phone] Diane Marc CRNP [address] [place] [address] 02/23/2023 3:00 PM EST Office Visit Nephrology [address] [place] [address] Jennifer Agustin MD [address] [facility] [place] [address] 06/06/2023 2:30 PM EDT Office Visit Family Medicine [address] [place] [phone] [address] [place] [address] 06/08/2023 9:00 AM EDT Office Visit Cardiology [address] [place] [address] Greg Mckeon PA-C [address] [place] [address] 02/20/2024 12:30 PM EST Nurse Only Ancillary [address] [place] [address] [place], Nurse [address] [place] [address] Scheduled Procedures Name Priority Associated Diagnoses Date/Ti [...] Additional history exists CKD PHOS USE SMARTSET 00820 11/17/202305/2022, 09/29/2021, 05/12/2021, Additional history exists Diabetic Foot Exam 11/17/2023 11/16/2022, 0 05/05/2021, 11/22/2017, Additional history exists CKD HGB USE SMARTSET 34591 01/18/202401/17, 01/17/2023, 11/16/2022, Additional history exists Depression [...] this encounter Medical Devices Implanted Type Area Key Sander Device Identifier Shelf Expiration Date Model / Serial / Lot Shaft Fibula 6cm [id number] - [id number] Implanted:Qty: 1 on 09/05/2008 [place] [facility] [place] - Human N/A: Spine Cervical [employer] FND 04/20/2010 [id number] / [id number] / Stent Eso Gw 22x70 [id number] - [id number] Implanted:Qty: 1 on 01/21/2008 [place] [facility] N/A: Esophagus [employer] 04/12/2009 [id number] / / [id number] Depuy Uniplate Screw 14mm Implanted:Qty: 2 on 09/05/2008 [place] [facility] N/A: Spine Cervical [employer] [id number] / / Screw Inner Mntr [id number] - [id number] Implanted:Qty: 8 on 05/07/2010 [place] [facility] [place]/A: Spine Cervical JN[place] : [employer] [id number] / / Envista Intraocular Lens Implanted:Qty: 1 on 03/10/2022 by Liang Marshall MD at OR [facility] Right: Eye [employer] 08/13/2023 [id number] / [id number] / [id number] Envista Intraocular Lens Implanted:Qty: 1 on 03/24/2022 by Liang Marshall MD at OR [facility] Left: Eye [employer]CH [employer]OM[employer] 07/13/2024 [id number] / [id number] / [id number] documented as of this encounter Visit Diagnoses Diagnosis Chronic atrial fibrillation (HCC)- Primary Atrial fibrillation documented in this encounter Advance Directives Documents on File Type Date Recorded Patient Research Psychologist Expl anation POLST 01/26/2021 [place] DERS [...] the patient have Health Care Power of Charter Representative? No Code Status History Code Status Date Activated Date Inactivated Comments No Code 03/10/2022 7:41 AM 03/10/2022 2:02 PM This order reflects the patients wishes and were consensually agreed upon. Question Answer Comments Discussion of Advance Directives occurred with: Patient Does the patient have a Living Will? No Does the patient have Health Care Power of Charter Representative? No Full Code 05/07/2010 8:55 AM 05/11/2010 9:01 PM This order reflects the patients wishes and were consensually agreed upon. Question Answer Comments Discussion of Advance Directives occurred with: Patient Does the patient have a Living Will? No Does the patient have Health Care Power of Charter Representative? No Full Code 05/07/2010 6:07 AM 05/07/2010 [...] the patient have Health Care Power of Charter Representative? No Care Teams Polysom Tech Relationship Specialty Start Date End Date Jocelyne Desai DO [address] [place] [address] [place] [address] PCP - General Internal Medicine 11/09/16 documented as of this encounter
--- OUTSIDE RECORDS SUMMARY | 2023-06-15 09:06 | External Medical Summary | Summary of Care ---
Author Name Unknown Organization [facility] Address [address] [facility] [facility] [place] [address] Phone [phone] Care Team Providers Care Library Supervisor Name Role Phone Jocelyne Desai Primary Care Provider + [phone] Reason for Visit * Reason Comments Adult Annual Wellness Visit, Subsequent Visit Encounter Details Date Type Department Care Team (Late st Contact Info) Description 02/16/2023 10:00 AM EST Nurse Only Ancillary [address] [place] [id number] [place], Nurse [address] [place] [phone] Adult Annual Wellness Visit, Subsequent Visit Allergies No known active allergiesdocumented as of this encounter (statuses as of 02/16/2023) Medications Medication Sig Dispensed Refills Start Date [...] as of this encounter (statuses as of 02/16/2023) Active Problems Patient Care Coordination No te Formatting of this note migh t be different from the original. Good connectivity [facility] for wound care [phone] Televideo if needed. Problem Noted Date Diagnosed [...] up with podiatry,. Letter in chart from [facility] podiatry they were unable to [...] 11/27/2018 H/O gastric bypass 11/27/2018 Overview: [employer] customer [employer] current use of 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 1 Status [...] ICD-10 update of inactive term PLATT RESEARCH OTHER*[id number] 02/20/2007 ADVANCE DIRECTIVE INFORMATION 01/19/2005 Overview: Yes, Patient instructed to provide copy of advance directive for provider to review and to be scanned into Electronic Medical Record No, Advance Directive brochure given to patient at prior appointment. SPINAL STENOSIS-LUMBAR 09/23/2002 Vitamin D deficiency Cervical spinal stenosis documented as of this encounter (statuses as of 02/16/2023) Resolved Problems Problem Noted Date Diagnosed Date Resolved Date Depression, unspecified 11/09/2021 03/2 Depression, unspecified 11/09/20210 05/2022 Cellulitis of right leg 07/13/202105/2022 Last Assessment & Plan: Suspect this could be early/localized. Will treat with 7 days antibiotic. If pt cannot be reassess by Dr. Braxton office early next week will need [facility] provider recheck Multiple and open wound [...] 11/17/19 23 LUMBAGO 12/24/2002 05/09/2007 LOC PRIM [id number] 12/24/200208/13 DEGENERATIVE SKIN DISORD 12/24/2002 VERTEBRAL FX [...] as of this encounter (statuses as of 02/16/2023) Immunizations Name Administration Dates Next Due COVID-19 [...] Sign Reading Time Taken Comments Blood Pressure 118/60 02/16/2023 10:16 AM EST Pulse 96 02/16/2023 10:16 AM EST Temperature 36.1 C (96.9 F) 02/16/2023 1 0:16 AM EST Respiratory Rate - - Oxygen Saturation 98% 02/16/2023 10: 16 AM EST Inhaled Oxygen Concentration - - Weight 109.7 kg (241 lb 12.8 oz) 2023 10:16 AM EST Height 180.3 cm (5' 11") 02/16/2023 10: 16 AM EST Body Mass Index 33.72 02/16/2023 10:16 AM EST documented in this encounter Patient Instructions * Patient Instructions* Nara Bernstein RN - 02/16/2023 10:12 AM EST Patient Instructions - Fall Prevention (This education is for all patients over 65 regardless of symptoms) Remember to take your current medications as prescribed. In order to prevent falls, you are encouraged to: Exercise Utilize assistive/adaptive devices Avoid multifocal lenses when walking Avoid hazards in home Maintain a regular toileting schedule Any questions please contact our office. Preventing Falls in the Home (This education is for all patients over 65 regardless of symptoms) As you get older, falls are more likely. Thats because your reaction time slows. Your muscles and joints may also get stiffer, making them less flexible. Illness, medications, and vision changes can also affect your balance. A fall could leave you unable to live on your own. To make your home safer, follow these tips: Floors Put nonskid pads under area rugs Remove throw rugs Replace worn floor coverings Tack carpets firmly to each step on carpeted stairs. Put nonskid strips on the edges of uncarpeted stairs Keep floors and stairs free of clutter and cords Arrange furniture so there are clear pathways Clean up any spills right away Bathrooms Install grab bars in the tub or shower Apply nonskid strips or put a nonskid rubber mat in the tub or shower Sit on a bath chair to bathe Use bathmats with nonskid backing Lighting Keep a flashlight in each room Put a nightlight along the pathway between the bedroom and the bathroom Chelsey Patient Education Copyright 2008 - 2010 Chelsey except where otherwise noted Preventing Falls: Exercises to Improve Balance, Flexibility, Strength, and Staying Power (This education is for all patients over 65 regardless of symptoms) Certain types of exercises may help make you less likely to fall. Try the ones below. Or do other exercises that your healthcare provider suggests. Depending on your health, you may need to start slowly. Dont let that stop you. Even small amounts of exercise can help you. Be sure to talk to yourhealthcare provider before starting any exercise program. Improve Balance Many types of exercise can help improve balance. Raj chi and yoga are good examples. Heres another one to try. You can do it anytime and almost anywhere. Stand next to a counter or solid support. Push yourself up onto your tiptoes. Hold for 5 seconds. If you start to lose your balance, hold on to the counter. Rest and repeat 5 times. Work up to holding for 20 to 30 seconds, if you can. Increase Flexibility Being more flexible makes it easier for you to move around safely. Try exercises like the seated hamstring stretch. Sit in a chair and put one foot on a stool. Straighten your leg and reach with both hands down either side of your leg. Reach as far down your leg as you can. Hold for about 20 seconds. Go back to the starting position. Then repeat 5 times. Switch legs. Build Strength Resistance exercises help build strength. You can do them without equipment. Or you can use weights, elastic bands, or special machines. One such exercise is called the biceps curl. You can hold a 1 pound weight or even a can of soup. Do this exercise at least 3 times a week. Strive for everyday. Sit up straight in a chair. Keep your elbow close to your body and your wrist straight. Bend your arm, moving your hand up to your shoulder. Then slowly lower your arm. Repeat 5 times. Switch to the other arm. Build Your Staying Power Aerobic exercises make your heart and lungs stronger so you can keep moving longer. Walking and swimming are two of the best types of exercises you can do. Using a stationary bike is great, too. Find an aerobic exercise that you enjoy. Start slowly and build up. Even 5 minutes is helpful. Aimfor a goal of 30 minutes, at least 3 times a week. You dont have to do 30 minutes in one session. Break it up and walk a little throughout the day. More Helpful Tips Start easy. Slowly work up to doing more. Talk with your healthcare provider about the best exercises for you. Call senior centers or health clubs about exercise programs. If needed, have a family member watch you walk every so often to check your stability. Exercise with a friend. Choose an activity you both enjoy. Try exercises that you can do anytime, anywhere. Here are two examples. Have someone with you when you first try these: Practice walking by placing one foot right in front of the other. Stand up and sit down 10 times. Repeat this throughout the day. Chelsey Patient Education Copyright 2008 - 2010 Chelsey except where otherwise noted. Preventing Falls: Moving Safely Using a Cane or Walker (This education is for all patients over 65 regardless of symptoms) Keep the cane away from your feet so you dont trip. A walking aid, such as a cane or walker, can help you stay more independent and avoid falls. Remember to keep your walking aid within easy reach when youre in a chair or in bed. And learn how to use it safely so you dont injure yourself. Using a Cane If you have a stronger side, hold the cane on that side. Get your balance. Move the cane and your weaker leg forward. Support your weight on both the cane and your weaker side. Step with your stronger leg. Start again from step 1. If youre using a folding walker, be sure you know how to lock it open. Check that its locked open before each use. Using a Walker Roll the walker (or lift it, if youre using one without wheels) forward about 12 inches. Step forward with your weaker leg first. Use the walker to help keep your balance. Bring your other foot forward to the center of the walker. Start again from step 1. Helpful Tips Check with your healthcare provider about the right walking aid to use. Ask about a walker with a seat attached. Check the tips of your cane or walker to make sure they have nonskid covers. Move slowly from room to room. Dont shukla. Sit down to get dressed. Use a fadumo pack or backpack to keep your hands free. Get help for jobs that mean climbing, even on a stepstool. Jamele[employer]vis Patient Education Copyright 2008 - 2010 Chelsey except where otherwise noted. Treating Urinary Incontinence in Men (This education is for all patients over 65 regardless of symptoms) You can't always control the release of urine. You may leak urine. Or you may not be able to hold your urine until you can get to a bathroom. This is called urinary incontinence. The problem can be managed. Talk to your doctor about your treatment options. Taking Medications Prescription medications may help you. They may: Help the sphincter to work better. (This is the muscle that closes to keep urine from leaking out of the bladder.) Help stop the bladder from tierra too often to push urine out. Help the bladder muscles contract with more force. Help relax the sphincter muscle and allow urine to flow more freely. Making Changes to Your Routine Certain changes in your daily routine may help. These include: Avoiding caffeine and alcohol. Using timed voiding. This is following a schedule for drinking fluids and urinating. Doing Kegel exercises daily. These exercises involve tightening the muscles in your sphincter and around your bladder to help strengthen them. Your doctor can explain how to do them. Using a Catheter A catheter is a narrow tube that is inserted through the urethra into the bladder. It drains urine.A condom catheter covers the penis. It channels urine into a collection bag. It is worn most of thetime. Intermittent catheterization means inserting a catheter to drain the bladder, then removing it. This is done on a regular schedule. Having Surgery If other options don't work, surgery may be recommended. If surgery is an option, your healthcare provider can discuss it with you and explain its risks and benefits. Healing After Prostate Surgery Surgery on the prostate gland can cause incontinence. Most often, the incontinence is only for a short time. It clears up when healing is complete. Very rarely, prostate surgery can result in permanent incontinence. Hi Mr. Cooley, As your primary care physician, I know that regular visits with my patients who have several chronic conditions can go a long way in helping you stay healthy. Many times, the clinic team and I are in touch with you and/or other care team members between office visits to adjust medications, discuss any changes in your health, and review our care plan to make sure it is still meeting your needs. I am dedicated to helping you take a more active role in your overall care. It is important that there are resources available to you, so I created a personalized plan of care with a Health Calendar for you, which is included on the next page of this letter. Below is a list that summarizes your electronic health record: Health Maintenance Due: Health Maintenance Due Topic Date Due Diabetic Eye Exam 12/30/2022 Current Medication List: (as of Visit date not found (in office), Visit date not found (telemedicine) ) Current Outpatient Medications Medication Sig Dispense Refill [...] mouth 2 times a day. (Patient taking differently: Take 1 Capsule by mouth in the morning.) 200 Cap 5 Aspirin 81 MG Oral Tablet Delayed Release Take 1 Tablet by mouth every evening. Atorvastatin Calcium 40 MG Oral Tablet (Lipitor) TAKE ONE TABLET BY MOUTH EVERY DAY 100 Tablet 1 Losartan Potassium 50 MG Oral Tablet (Cozaar) TAKE 1 TABLET BY MOUTH IN THE MORNING (Patient taking differently: Take 0.5 Tablets by mouth in the [...] then increase to 0.50 mg weekly thereafter. (Patient taking differently: 0.5 mg once a week. inject 0.25 mg under the skin once a week x 4 weeks, then increase to 0.50 mg weekly thereafter.) 9 mL 1 Metoprolol Succinate ER 25 MG Oral Tablet Extended Release 24 Hour (toPROL XL) Take 1 Tablet bymouth in the morning. 100 Tablet 3 Warfarin Sodium 3 MG Oral Tablet (Coumadin) TAKE 1 TO 2 TABLETS BY MOUTH DAILY, DIRECTED BY COUMADIN CLINIC 180 Tablet 3 Furosemide 20 MG Oral Tablet (Lasix) TAKE ONE TABLET BY MOUTH EVERY DAY NEEDED FOR SWELLING 100 Tablet 1 No current facility-administered medications for this visit. Current List of Allergies: (as of Visit date not found (in office), Visit date not found (telemedicine) ) Review of patient's allergies indicates: No Known Allergies Most Recent Lab Results: Results for orders placed or performed in visit on 02/02/23 OUTSIDE LAB-PT/INR Result Value Ref Range INR-OUTSIDE LAB 2.9 *Note: Due to a large number of results and/or encounters for the requested time period, some results have not been displayed. A complete set of results can be found in Results Review. Sincerely, Jocelyne Desai, DO 02/16/2023 [facility] Health Calendar (as of Visit date not found (in office), Visit date not found (telemedicine) ) Care needs Care needs Last completed Due next Diabetic Eye Exam 12/30/2021 12/30/2022 A1C blood sugar test 11/16/2022 05/18/2023 Kidney Function Test 01/17/2023 07/19/2023 Urine albumin/creatinine test 11/16/2022 11/17/2023 Diabetic Foot Exam 11/16/2022 11/17/2023 Diphtheria, tetanus & pertussis vaccines (3 - Td or Tdap) 12/01/2018 12/01/2028 Colorectal cancer screening (colonoscopy 10 years, sigmoidoscopy 5 years, Cologuard 3 years, stool sample 1 year) 09/08/2021 09/09/2031 As you look over the recommended services, be sure to check with your insurance company to determine what's covered. [employer] is a great tool that helps you review your medical record online, including test results, doctor notes and your health summary. You can also schedule appointments with me and other members of your care team, request prescription refills and ask for advice related to your medical conditions at [email or web address]. documented in this encounter Progress Notes * Nara Bernstein RN - 02/16/2023 10:21 AM EST AD8 Dementia Screening Interview Person answering questions: patient Remember, "Yes, a change" indicates that there has been a change in the last several years caused by cognitive (thinking and memory) problems 1. Problems with judgement (eg: problems making decisions, bad financial decisions, problems with thinking). No (0) 2. Less interest in hobbies/activities. No (0) 3. Repeats the same things over and over (questions, stories, or statements). No (0) 4. Trouble learning how to use a tool, appliance, or gadget (eg: VCR, computer, microwave, remote control). No (0) 5. Forgets correct month or year. No (0) 6. Trouble handling complicated financial affairs (eg: balancing checkbook, income taxes, paying bills). No (0) 7. Trouble remembering appointments. No (0) 8. Daily problems with thinking and/or memory. No (0) TOTAL AD8: 0 - AD8 Dementia Screening Score The final score is a sum of the number items marked "Yes, A Change". 0 - 1: Normal cognition; 2 or greater: Cognitive impairments is likely to be present - further testing required Adult Annual Wellness Visit: Lg Cooley is a 72 year old male who presents for an Adult Annual Wellness Visit. Depression Screening: Did the patient complete the screening questionnaire for Depression? Yes Is the patient's total score for Depression 15 or greater? No, no further intervention needed, unless requested by patient. Did the patient answer positively to the suicide question? No, no further intervention needed, unless requested by patient. In general, compared to other people your age, what would you say that your health is? Fair Ht Readings from Last 1 Encounters: 02/16/23 1.803 m (5' 11") Wt Readings from Last 1 Encounters: 02/16/23 109.7 kg (241 lb 12.8 oz) Body Mass Index: BMI Greater than 30 Body mass index is 33.72 kg/m. BP Readings from Last 1 Encounters: 02/16/23 118/60 Medical/Surgical/Family History Reviewed: Yes Past Medical History: Diagnosis Date Amputated toe (HCC) 3/23/12 2nd toe right foot- no osteomyelitis Atrial fibrillation (HCC) Atrial fibrillation ([facility]) Atrial fibrillation ([facility]) B12 deficiency 12/21/2015 Background diabetic retinopathy(362.01) Cervical spinal stenosis 2007 Cervical spondylosis with myelopathy Cervical spondylosis with myelopathy 2007 Chronic atrial fibrillation ([facility]) 01/12/2015 Closed fracture of unspecified part of vertebral column without mention of spinal cord injury 1989 T8 Degeneration of lumbosacral intervertebral disc Degeneration of lumbosacral intervertebral disc Degeneration of thoracic intervertebral disc Degeneration of thoracic intervertebral disc Degenerative skin disorder Necrobiosis lipoidica Depressive disorder, not elsewhere classified Depressive disorder, not elsewhere classified Diabetic foot ulcer ([facility]) 04/27/2011 Displacement of cervical intervertebral disc without myelopathy 2007 C4-5 DM neuropathy, type II diabetes mellitus ([facility]) 07/30/2012 DM type 2 causing renal disease ([facility]) DIABETES TYPE II W RENAL MANIFEST DM type 2, goal A1c below 7 DM type 2, not at goal ([facility]) 1998 Dyslipidemia, goal LDL below 100 01/20/2009 Dyslipidemia, goal LDL below 160 Edema 11/13/2004 Encounter for long-term (current) use of other medications 2006 Erectile dysfunction 03/29/2011 Esophageal stricture 01/21/08 Essential hypertension with goal blood pressure less than 130/80 12/21/[address] 03/02/2018 HTN, goal below 130/80 12/30/2008 HTN, goal to be determined Kidney disease, chronic, stage I (GFR over 89 ml/min) Localized, primary osteoarthritis of ankle or foot 04/20/2005 Lumbago Microalbuminuric diabetic nephropathy ([facility]) 06/03/2014 Mixed dyslipidemia Morbid obesity, BMI not known ([facility]) Other B-complex deficiencies Other hammer toe (acquired) 11/13/2004 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 Paroxysmal SVT (supraventricular tachycardia) 04/23/2013 Perforation of esophagus 01/21/08 PERFORATED ESOPHAGUS 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 ([facility]) 07/30/2012 Peripheral sensory neuropathy 01/12/2015 Plantar fibromatosis 04/20/2005 Primary localized osteoarthrosis, lower leg OA of knees PVD (peripheral vascular disease) ([facility]) 11/09/2011 PVD (peripheral vascular disease) ([facility]) 11/09/2011 In a combination Rupture of flexor tendons of hand and wrist 1997 severed tendon index finger right hand Severe nonproliferative diabetic retinopathy(362.06) bilateral Spinal stenosis of lumbar region without neurogenic claudication Spinal stenosis of lumbar region without neurogenic claudication Toe osteomyelitis, right (HCC) 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HCC) 01/12/2015 Venous insufficiency Venous stasis of lower extremity 06/17/2013 Vitamin D deficiency 10/16/07 Vitamin D deficiency Past Surgical History: Procedure Laterality Date AMPUTATION OF TOE 05/06/2011 2nd toe right foot - no osteomyelitis AMPUTATION OF TOE 08/2020 big toe on right foot COLONOSCOPY, DIAGNOSTIC (RECTUM) 09/23/2010 normal COLONOSCOPY, DIAGNOSTIC (RECTUM) 09/08/2021 normal, repeat 10 yrs / COLONOSCOPY FLEXIBLE PROXIMAL DIAGNOSTIC performed by Janice Shoemaker, at[facility]OSCOPY [facility] CYSTOSCOPY 02/16/2015 EGD, FLEXIBLE, DIAGNOSTIC 09/20/2007 UPPER GI ENDOSCOPY DIAGNOSTIC performed by KAUSHAL WHITE at OR [facility] EGD, FLEXIBLE, DIAGNOSTIC 01/04/2008 UPPER GI ENDOSCOPY DIAGNOSTIC performed by KAUSHAL WHITE at OR [facility] EGD, FLEXIBLE, DIAGNOSTIC 03/21/2008 UPPER GI ENDOSCOPY DIAGNOSTIC performed by KAUSHAL WHITE at OR [facility] EGD, FLEXIBLE, TRANSENDOSCOPIC DILATION <30MM 01/04/2008 UPPER GI ENDOSCOPY BALLOON DILATION LESS THAN 30MM performed by KAUSHAL WHITE at OR [facility] EXPLORATION OF ABDOMEN 01/21/2008 EXPLORATORY LAPAROTOMY performed by KAUSHAL WHITE at OR [facility] FORM SKIN PEDICLE, TRUNK 02/14/1956 to right forearm INFORMATION Gum surgery/cyst removed INFORMATION 02/13/2005 ORAL CYST REMOVAL INJECTION OF EYE DRUG Right 12/30/2021 # 1 Avastin OD, Dr. Hodge INJECTION OF EYE DRUG Right 04/01/2022 # 2 Avastin OD, Dr. Hodge INSERT/REPLACE PACEMAKER,ATRIAL/VENTRICULAR 04/11/2013 04/11/2013 placement of siingle-chamber pacemaker via left subclavian approach [facility] DR.Mar Garcia - symptomatic bradycardia LAPAROSCOPE PROCEDURE, LIVER 09/20/2007 UNLISTED LAPAROSCOPIC PROCEDURE LIVER performed by KAUSHAL WHITE at OR [facility] LAPAROSCOPIC GASTRIC BYPASS/BHUPINDER-EN-Y 09/20/2007 LAPAROSCOPIC GASTRIC RESTRICTIVE BYPASS BHUPINDER EN Y performed by KAUSHAL WHITE at OR [facility] LASER SURGERY OF INNER EYE STRANDS Bilateral "about 20- 25 years ago" MICROSURGERY ADD-ON 05/07/2010 MICROSURGICAL SURGERY REQUIRING MICROSCOPE LISTED SEPARATELY performed by GAVIN BHARDWAJ at OR [facility] MRI FOOT WO CONTRAST 04/06/2011 Osteomyelitis of the distal phalanx of the 2nd digit. Reactive edema versus early osteomyelitis of the 2nd middle phalanx NECK SPINE FUSION (CERV, BELOW C2) 09/05/2008 ARTHRODESIS SPINE ANTERIOR CERVICAL performed by GAVIN BHARDWAJ at OR [facility] NECK SPINE FUSION (CERV, BELOW C2) 05/07/2010 ARTHRODESIS SPINE ANTERIOR CERVICAL performed by GAVIN BHARDWAJ at OR [facility] NECK SPINE FUSION (CERV, BELOW C2) 05/07/2010 ARTHRODESIS SPINE POSTERIOR CERVICAL performed by GAVIN BHARDWAJ at OR [facility] OTHER (INFORMATION) ACT 112 SIGNED 06/11/20 DR. HODGE OTHER (INFORMATION) Bilateral AVASTIN OU CONSENT DR. HODGE/MITESH EXP. 12/30/22 PACEMAKER INSERTION PER 01/18/2023 Dr. Rodriguez [facility] PARTIAL AMPUTATION OF TOE Right 12/2020 3rd toe and release tendon of other toes at the same time. REMOVAL OF TONSILS, AGE 12+ REMOVE ADDED VERTEBRAL SEG, NECK 05/07/2010 VERTEBRAL CORPECTOMY CERVICAL EACH ADDITIONAL LEVEL performed by GAVIN BHARDWAJ at OR [facility] REMOVE CATARACT, INSERT LENS PROSTH Right 03/10/2022 right EXTRACAPSULAR CATARACT REMOVAL WITH INTRAOCULAR LENS performed by Liang Marshall MD at OR [facility] REMOVE CATARACT, INSERT LENS PROSTH Left 03/24/2022 left EXTRACAPSULAR CATARACT REMOVAL WITH INTRAOCULAR LENS performed by Liang Marshall MD at OR [facility] REMOVE NECK SPINE DISK, SINGLE 09/05/2008 DISKECTOMY ANTERIOR CERVICAL performed by GAVIN BHARDWAJ at OR [facility] REMOVE NECK SPINE DISK, SINGLE 05/07/2010 DISKECTOMY ANTERIOR CERVICAL performed by GAVIN BHARDWAJ at OR [facility] REMOVE VERTEBRAL BODY, NECK, SINGLE 05/07/2010 VERTEBRAL CORPECTOMY ANTERIOR CERVICAL performed by GAVIN BHARDWAJ at OR [facility] REPAIR FINGER/HAND TENDON, EACH & right index finger tendon transfer from toe - [facility] SPINE FIX DEV, ANT, 4-7 SEG, INSERT 05/07/2010 ANTERIOR INSTRUMENTATION 4 TO 7 VERTEBRAL SEGMENTS performed by GAVIN BHARDWAJ at OR [facility] SPINE SEG FIX, POST, 3-6 SEG, INSERT 05/07/2010 POSTERIOR SPINE SEGMENTAL INSTRUMENTATION 3 TO 6 PSF performed by GAVIN BHARDWAJ at OR [facility] UPPR GI ENDOSCOPY W/STENT 01/21/2008 UPPER GI ENDOSCOPY WITH TRANSENDOSCOPIC STENT PLACEMENT performed by KAUSHAL WHITE at OR [facility] Family History Problem Relation Age of Onset Cancer Father Diabetes Father Heart Disorder Father Blindness Father "Diabetes related" Hypertension Father Heart Disorder Mother pacemaker Diabetes Mother Cancer Mother esopheagal Hypertension Mother Hypertension Brother Other (Other) Sister cellulitis legs/fibromyalgis Thyroid Disorder Sister Hypertension Sister Diabetes Brother Hypertension Brother Has patient ever had cancer? No Social History Tobacco Use Smoking status: Never Smokeless tobacco: Never Substance Use Topics Alcohol use: Yes Comment: rare beer or wine in the summer Vaping/E-Cigarette Use Vaping/E-Cigarette Use Never User Vaping/E-Cigarette Substances Vaping/E-Cigarette Devices Tobacco/Alcohol screening completed today? Yes Hospital Care: Admissions (within the last year): Hospital, Location: [facility] 10/05 cellulitis ER within 30 days: No Does the patient have an Advance Directives/Living Will? Yes and scanned Last Physical Exam: Last physical exam: 11/2022 Does patient see primary provider regularly? Yes Does patient see other providers? Yes, Specialist Patient Care Team updated? Yes Review of patient's allergies indicates: No Known Allergies Immunization History Administered Date(s) Administered COVID-19 mRNA, LNP-s, No Preserve, 2-Dose Series (Moderna) 03/19/2020 COVID-19 mRNA, LNP-s, No Preserve, 2-Dose Series (Pfizer) 03/19/2020, 04/09/2020, 02/16/2021 COVID-19, MRNA-LNP, 23-24, PF, 30 MCG/0.3 mL, 12 YRS AND ABOVE, IM (PFIZER- Comirnaty) 11/16/2022 Covid-19, Mrna, Lnp-s, Pf, Bivalent, 30 Mcg, IM, 12 yrs and above (Pfizer) 11/16/2021 Diptheria/Tetanus (Adult) 12/01/2018 Hepatitis B, 20+ yrs 05/13/2002, 06/10/2002, 11/11/2002 Pneumococcal Conjugate Vacc, 13 Valent (Prevnar) 11/01/2017 Pneumococcal Polysaccharide PPV23 (Pneumovax) 09/28/2005, 11/27/2018 Season Influenza, Quad, PF, Adjuvanted, 65+ Yrs, IM (FLUAD) 10/22/2019 Seasonal Influenza, PF, 6 M & above, IM , (FluLaval or Fluzone) 11/22/2016, 11/01/2017 Seasonal Influenza, Quadrivalent Hd (Fluzone Hd) 10/16/2020, 11/09/2021, 11/16/2022 Seasonal Influenza, Quadrivalent, No Preserve, IM 12/25/2014, 12/21/2015 Seasonal Influenza, Split, IIV3, With Preserve, Inj 12/26/2007, 12/05/2008, 11/25/2010, 11/09/2011,11/05/2012, 01/28/2014 Seasonal Influenza, Trivalent, Adjuvanted, 65+ yrs 11/27/2018 TDAP (age 11 and older)(Adacel) 10/11/2007 Zoster Vaccine Recombinant (Shingrix) 10/04/2018, 01/08/2019 Current Outpatient Medications Medication Sig Dispense Refill [...] No current facility-administered medications for this visit. Patient Active Problem List Diagnosis Code SPINAL STENOSIS-LUMBAR M48.061 ADVANCE DIRECTIVE INFORMATION Vitamin D deficiency E55.9 Cervical spinal stenosis M48.02 Type 2 diabetes mellitus with hemoglobin A1c goal of less than 7.5% ([facility]) E11.9 HTN, goal below 140/90 I10 DYSLIPIDEMIA, GOAL LDL BELOW 100 E78.5 [facility] RESEARCH OTHER*[id number] Erectile dysfunction N52.9 DM neuropathy, type II diabetes mellitus ([facility]) E11.40 Paroxysmal SVT (supraventricular tachycardia) I47.10 Cardiac pacemaker in situ Z95.0 Venous insufficiency of both lower extremities I87.2 Microalbuminuric diabetic nephropathy ([facility]) E11.21 Chronic atrial fibrillation ([facility]) I48.20 Peripheral sensory neuropathy G60.8 Essential hypertension with goal blood pressure less than 130/80 I10 Vitamin B12 deficiency E53.8 Cerebrovascular disease, arteriosclerotic, post-stroke I67.2, Z86.73 Status post amputation of lesser toe of right foot ([facility]) Z89.421 Type 2 diabetes, controlled, with peripheral neuropathy ([facility]) E11.42 Type 2 diabetes mellitus with peripheral vascular disease ([facility]) E11.51 Persistent proteinuria R80.1 H/O gastric bypass 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.84 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.01 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 Nocturnal hypoxemia G47.34 Type 2 diabetes mellitus with stage 3b chronic kidney disease, with long-term current use of insulin ([facility]) E11.22, N18.32, Z79.4 Sleep apnea treated with nocturnal BiPAP G47.30 PAD (peripheral artery disease) ([facility]) I73.9 Hyperparathyroidism, secondary renal ([facility]) N25.81 Diabetes mellitus due to underlying condition with severe nonproliferative diabetic retinopathy with macular edema, unspecified eye ([facility]) E08.3419 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 kidney disease ([facility]) I13.0, I50.32, N18.32 Esophageal obstruction K22.2 S/P angioplasty with stent Z95.820 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, without long-term current use of insulin ([facility]) E11.3511 Chronic kidney disease, stage 3b ([facility]) N18.32 Non-pressure chronic ulcer of other part of right foot with unspecified severity ([facility]) L97.519 Acquired absence of right great toe ([facility]) Z89.411 Diabetic ulcer of toe of right foot associated with type 2 diabetes mellitus, limited to breakdown of skin ([facility]) E11.621, L97.511 History of PR (myocardial infarction) I25.2 Trigger ring finger of left hand M65.342 Medication Compliance: Patient is able to obtain all of his medications? Yes Patient takes medications as prescribed? Yes Patient manages own medications: Yes Patient uses a pill box? No Dental Exam: encouraged Eye Screening: Yes: Every yearly, patient is due for exam and will call to schedule Are you having trouble with hearing? No Do you use an assistive device to help your hearing? No Exercise Screening: does not exercise regularly Nutrition Assessment: Eats three meals a day Pain Screening: Are you having any pain? No Sleep Screening Tool 'STOP': Do you snore? Yes Do you feel fatigued during the day? Yes Do you wake up feeling like you haven't slept? No Have you been told you stop breathing at night? Yes Do you gasp for air or choke while sleeping? No Have you been told you have Sleep Apnea? Yes Do you have high blood pressure or are on medication(s) to control high blood pressure? Yes SCORE: If you check YES to two or more questions, make a referral for Obstructive Sleep Apnea Patient has not used bipap for 1 1/2 yrs since recall, patient has tried multiple times and no help. Patient and Caregiver Support System: Patient lives alone Means of Transportation: Drives. Not a concern. Patient lives in Two Story - How many stairs: patient lives downstairs. Community Resources: Meals on Wheels and food World Reviewer Functional Status and ADL Skills: Has patient ever had an amputation? Yes: Limb: right big toe and 2nd and 3rd toes Functional Assessment: 90- Able to carry on normal activity, minor symptoms of disease Ambulation: Patient ambulates with assistive device. Cane Dressing: Gets clothes and dresses without any assistance: Independent Able to move freely in chair or bed including turning over: Independent Repositioning (bed or chair): Not applicable Transfers: Independent Toileting: Goes to bathroom, uses toilet, arranges clothes and returns without any assistance: Independent Toileting: continent of bladder and continent of bowel Feeding: Self Bathing: Self; Shower Chair, tub and shower and grab bars and removeable shower head. Requires none assistance with ADLs. Instrumental ADL's: Shopping: Independent Housekeeping: Independent Handling Finances: Independent DME Vendor Name: Not Applicable Fall Risk Assessment: Can the patient demonstrate that he can stand from a sitting position? Yes Has the patient had a fall within the last 6 months? No Does the patient have a problem with his gait or balance? Yes Does the patient take 4 or more prescription medicines? Yes Does the patient use sedatives or narcotics? No Fall Risk Factors Present: Uses more than 4 medications Uses assistive devices Balance or gait disturbances Lower extremity weakness Visually impaired Older than age 70 Yxw-Py-yqz-Go Test: Time began at 1000. Patient stood from sitting position and walked approximately 10 feet, returned and sat down. Total time for llu-ek-qyq-go test was 11 seconds. Sxy-De-keq-Go Test completed? Yes Gender Specific Preventative Plan: Health Maintenance Topic Date Due Diabetic Eye Exam 12/30/2022 HbA1c 05/18/2023 GFR 07/19/2023 Albumin/Creatinine Ratio 11/17/2023 Diabetic Foot Exam 11/17/2023 CKD PHOS USE SMARTSET 79743 11/17/2023 CKD HGB USE SMARTSET [id number] 01/18/2024 Depression Screening 02/17/2024 DTaP,Tdap,and Td Vaccines (3 - Td or Tdap) 12/01/2028 Colorectal Cancer Screening 09/09/2031 Hepatitis B Completed Influenza Vaccine (FLU shot) Completed Zoster Vaccines Completed Pneumococcal Vaccine: 65+ Years Completed COVID-19 Vaccine Completed MENINGOCOCCAL (MENACTRA/MENVEO) Aged Out GARDASIL-HPV IMMUNIZATION SERIES Aged Out Follow Up/ Referrals/Handouts: Depression screening - completed Functional assessment - doing well, goes to wound clinic once a wk Falls Risk screening - discussed, Exercise screening - encouraged Nutrition assessment -. Education Provided and Handouts Provided Pain screening - none Incontinence screening - no concerns today Patient has been verbally educated on the need or importance of Cholesterol, Diabetic Eye Exam, Diabetic Foot Exam, Glucose, Hemoglobin A1c, and Immunizations: covid,flu,shingrix Pt has completed the covid vaccines: Yes, including 12/05 vaccine Routine general medical examination at a health care facility (Primary) Risk and functional assessment Cardiac pacemaker in situ -patient did have pacemaker replaced in Jan 2023 Cerebrovascular disease, arteriosclerotic, post-stroke - Med reconciliation completed and compliance discussed. - pt to continue present medications. Chronic atrial fibrillation (HCC) - Med reconciliation completed and compliance discussed. - pt to continue present medications. Chronic kidney disease, stage 3b (HCC) Component Latest Ref Rng 01/17/2023 BUN 6 - 20 mg/dL 22 (H) Creatinine 0.6 - 1.2 mg/dL 1.7 (H) Estimated Glomerular Filtration Rate >=60 mL/min 44 (L) - Med reconciliation completed and compliance discussed. - pt to continue present medications. Legend: (H) High (L) Low Complex sleep apnea syndrome -patient states he has not used his bipap for 1 1 /2 yrs since the recall I will send a message to sleep med for advice Diabetes mellitus due to underlying condition with severe nonproliferative diabetic retinopathy with macular edema, unspecified eye (HCC) -patient did have cataract surgery done in 2022 and encouraged to call for his diabetic eye exam Non-pressure chronic ulcer of other part of right foot with unspecified severity ([facility]) Diabetic ulcer of toe of right foot associated with type 2 diabetes mellitus, limited to breakdown of skin ([facility]) Patient does see wound clinic once wkly for wound on right foot. - Med reconciliation completed and compliance discussed. - pt to continue present medications. Hemoglobin AIC Results: Lab Results Component Value Date/Time HEMOGLOBIN A1C - [facility] 6.5 (H) 11/16/2022 03:20 PM HEMOGLOBIN A1C - [facility] 7.0 (H) 05/13/2022 02:41 PM HEMOGLOBIN A1C - [facility] 6.7 (H) 11/09/2021 03:30 PM HEMOGLOBIN A1C - [facility] 7.4 (H) 10/17/2019 12:25 PM HEMOGLOBIN A1C - [facility] 6.7 (H) 06/26/2019 02:46 PM HEMOGLOBIN A1C - [facility] 7.0 (H) 11/22/2018 08:35 AM HEMOGLOBIN A1C, DBS - [facility] 7.6 (H) 11/09/2022 12:59 PM DYSLIPIDEMIA, GOAL LDL BELOW 100 - Med reconciliation completed and compliance discussed. - pt to continue present medications. Lab Results Component Value Date/Time LDL CHOLESTEROL (CALCULATED) - [facility] 38 11/16/2022 03:20 PM LDL CHOLESTEROL (CALCULATED) - [facility] 39 10/17/2019 12:25 PM LDL CHOLESTEROL (DIRECT MEASURE) - [facility] NOT APPLICABLE 10/17/2019 12:25 PM LDL CHOLESTEROL (DIRECT MEASURE) - [facility] 87 12/04/2006 08:33 AM Essential hypertension with goal blood pressure less than 130/80 - Med reconciliation completed and compliance discussed. - pt to continue present medications. BP Readings from Last 3 Encounters: 02/16/23 118/60 12/06/22 112/72 11/29/22 118/72 H/O gastric bypass - doing well, surgery 2007, patient would like to have skin removal at some point History of PR (myocardial infarction) HTN, goal below 140/90 - Med reconciliation completed and compliance discussed. - pt to continue present medications. 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 - pt to continue present medications.al hypoxemia Sleep apnea treated with nocturnal BiPAP -see other TE re recall of bipap Type 2 diabetes mellitus with hemoglobin A1c goal of less than 7.5% (HCC) Hemoglobin AIC Results: Lab Results Component Value Date/Time HEMOGLOBIN A1C - [facility] 6.5 (H) 11/16/2022 03:20 PM HEMOGLOBIN A1C - [facility] 7.0 (H) 05/13/2022 02:41 PM HEMOGLOBIN A1C - [facility] 6.7 (H) 11/09/2021 03:30 PM HEMOGLOBIN A1C - [facility] 7.4 (H) 10/17/2019 12:25 PM HEMOGLOBIN A1C - [facility] 6.7 (H) 06/26/2019 02:46 PM HEMOGLOBIN A1C - [facility] 7.0 (H) 11/22/2018 08:35 AM HEMOGLOBIN A1C, DBS - [facility] 7.6 (H) 11/09/2022 12:59 PM Type 2 diabetes mellitus with peripheral vascular disease (HCC) 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 - pt to continue present medications. Follow Up: Return in 1 year (on 02/17/2024) for 12 month Subsequent Adult Wellness Visit. | For: 12 month Subsequent Adult Wellness Visit | Check-out note: 12 month Subsequent Adult Wellness Visit Would patient like to schedule next AWV visit? Yes Nara Bernstein RN documented in this encounter Miscellaneous Notes * Pt Handout (on AVS) - Nara Bernstein RN - 02/16/2023 10:49 AM EST A1C A1C Does this test have other names? Hemoglobin A1c; HbA1c; glycosylated hemoglobin; glycohemoglobin; Glycated hemoglobin What is this test? A1C is a blood test that shows average blood sugar (glucose) levels over the last 3 months. The test is done to find out if a person has diabetes or prediabetes. It's also used to see how well a person with diabetes controls their blood sugar. The test can help guide diabetes treatment over time. Why do I need this test? You may need this test to check for prediabetes or diabetes. If you have diabetes or prediabetes, you may need this test to see how well you control your blood sugar. People with diabetes need to track their blood sugar (glucose) levels every day to make sure they aren?t too high or too low. The A1C test gives results for a longer period of time. It shows ifyour blood sugar has been too high on average over the last 3 months. Glucose sticks to hemoglobin in the blood. Hemoglobin is a protein in red blood cells that carries oxygen. When blood sugar is high, more glucose builds up and sticks to the hemoglobin. The A1C test measures how much of the hemoglobin is coated with sugar. You may have the test when a healthcare provider first works with you to treat your diabetes. You may then need to have the A1C test 2 or more times a year. This depends on the type of diabetes you have and how well it?s controlled. The [place] Diabetes Association (ADA) advises an A1C test at least 2 times a year if you are meeting your blood sugar goals. If you aren?t meeting your goals or your medicine has changed, you should have the A1C test more often. What other tests might I have along with this test? If your healthcare provider tests you for diabetes, you may also have any of these tests: Fasting plasma glucose blood test (FPG) Oral glucose tolerance test (OGTT) Urine test to check for sugar, ketones, or protein What do my test results mean? Test results may vary depending on your age, gender, health history, the method used for the test, and other things. Your test results may not mean you have a problem. Ask your healthcare provider what your test results mean for you. A1C results are reported as a percentage. Here are what the results mean: A1C below 5.7%. This is normal. A1C from 5.7% to 6.4%. You may have prediabetes. This means you have a higher risk for diabetes in the future. A1C of 6.5% or above on 2 separate tests. You may have diabetes. The ADA says that people with diabetes should keep an A1C below 7%. The [place] Association of Clinical Endocrinologists advises an A1C of 6.5% or less. Your healthcare provider may give you other advice. This is based on your age, health conditions, and other things. How is this test done? The test is done with a blood sample. A needle is used to draw blood from a vein in your arm or hand. Does this test pose any risks? Having a blood test with a needle carries some risks. These include bleeding, infection, bruising, and feeling lightheaded. When the needle pricks your arm or hand, you may feel a slight sting or pain. Afterward, the site may be sore. What might affect my test results? Your blood sugar levels change throughout the day. This won't affect the A1C test result. If you have sickle cell anemia or other blood disorders, an A1C test may be less useful for diagnosing or watching diabetes. Your healthcare provider may tell you to use a different test that will work better for you. The test results may be less accurate if you have any of the below: Anemia Heavy bleeding Iron deficiency Kidney failure Liver disease How do I get ready for this test? You don't need to get ready for the test. Last Reviewed Date: 04/13/202119998274-0003 [employer]. All rights reserved. This information is not intended as a substitute for professional medical care. Always follow your healthcare professional's instructions. * Pt Handout (on AVS) - Nara Bernstein RN - 02/16/2023 10:48 AM EST Images from the original note were not included. [id number] Steps for Eating Healthier Changing the way you eat can improve your health. It can lower your cholesterol and blood pressure,and help you stay at a healthy weight. Your diet doesn?t have to be bland and boring to be healthy.Just watch your calories and follow these steps: Step 1. Eat fewer unhealthy fats Choose more fish and lean meats instead of fatty cuts of meat. Skip butter and lard, and use less margarine. Replace these with healthier fats, such as olive, canola, or avocado oils. Pass on foods that have palm, coconut, or partially hydrogenated oils. Eat fewer high-fat dairy foods like cheese, ice cream, and whole milk. Get a heart-healthy cookbook and try some new recipes. Step 2. Go light on salt Keep the saltshaker off the table. Limit high-salt ingredients, such as soy sauce, bouillon, and garlic salt. Instead of adding salt when cooking, season your food with herbs, spices, and other flavorings. Try lemon, garlic, onion, vinegar, or salt-free herb seasonings. Limit convenience foods, such as boxed or canned foods and restaurant food. Read food labels and choose lower-sodium options. Buy fresh, frozen, or canned vegetables that don't have added salt. Step 3. Limit sugar Pause before you add sugars to pancakes, cereal, coffee, or tea. This includes white and brown table sugar, syrup, honey, and molasses. Cut your usual amount by half. Swap out sugar-filled soda and other drinks. Buy sugar-free or low-calorie beverages. Remember, water is always the best choice. Try adding lemon juice to water for extra flavor. Read labels and choose foods with less added sugar. Keep in mind that dairy foods and foods withfruit will have some natural sugar. Cut the sugar in recipes by 1/3 to 1/2. Boost the flavor with extracts like almond, vanilla, or orange. Or add spices such as cinnamon or nutmeg. Step 4. Eat more fiber Eat fresh fruits and vegetables every day. Boost your diet with whole grains. Go for oats, whole-grain rice, and bran. Add beans and lentils to your meals. Drink more water to match your fiber increase to help prevent constipation. Step 5. Pay attention to serving sizes Remember that a serving size is a standard measurement. It will let you track the amount of fat,calories, and other nutrients in the food you eat. Read the Nutrition Facts label on packaged foods to learn their serving sizes. Use serving sizes to assess how much food you put on your plate. Pay attention to your portions.How many servings are you eating? Keep in mind that your needs may change if you?re more active or less active, or if you have other factors that change your calorie needs. Use your hand to help you measure serving sizes. For example: o 1 teaspoon: This is about the size of the first joint of your thumb. o 1 tablespoon: This is about the size of the first 2 joints of your thumb. o 1 ounce: This is about what you can fit in your cupped hand. o 2 to 3 ounces: This is about the size of the palm of your hand. o cup: This is also about what you can fit in your cupped hand. o 1 cup: This is about the size of your fist. Last Reviewed Date: 01/13/202219999925-3723 [employer]. All rights reserved. This information is not intended as a substitute for professional medical care. Always follow your healthcare professional's instructions. documented in this encounter Plan of Treatment Upcoming Encounters Date Type Department Care Team (Late st Contact Info) Description 02/17/2023 6:15 AM EST Anticoagulation Pharmacy Call Center [facility] [phone] [facility] [place] [address] [facility], [facility] [address] [facility] [place] [address] 02/23/2023 1:30 PM EST Office Visit [facility], [place] [address] [place] [phone] Diane Marc CRNP [address] [place] [phone] 02/23/2023 3:00 PM EST Office Visit Nephrology [address] [place] [address] [facility] [address] [facility] [address] 06/06/2023 2:30 PM EDT Office Visit Family Medicine [address] [place] [phone] [place] [address] 06/08/2023 9:00 AM EDT Office Visit Cardiology [address] [place] [address] Greg Mckeon PACinthai[facility] [address] [place] [address] 02/20/2024 12:30 PM EST Nurse Only Ancillary [address] [place] [address] [place], Nurse [address] [place] [address] Scheduled Procedures Name Priority Associated Diagnoses Date/Ti [...] Additional history exists CKD PHOS USE SMARTSET 49051 11/17/202305/2022, 09/29/2021, 05/12/2021, Additional history exists Diabetic Foot Exam 11/17/2023 11/16/2022, 0 05/05/2021, 11/22/2017, Additional history exists CKD HGB USE SMARTSET 39628 01/18/202401/17, 01/17/2023, 11/16/2022, Additional history exists Depression [...] this encounter Medical Devices Implanted Type Area Car [place] Device Identifier Shelf Expiration Date Model / Serial / Lot Shaft Fibula 6cm [id number] - [id number] Implanted:Qty: 1 on 09/05/2008 at [place] [facility] Tissue - Human N/A: Spine Cervical [employer]LET[employer]ANSPLANT FND 04/20/2010 [id number] / [id number] / Stent Eso Gw 22x70 [id number] - [id number] Implanted:Qty: 1 on 01/21/2008 at OR [facility] N/A: Esophagus [employer] 04/12/2009 [id number] / / [id number] Depuy Uniplate Screw 14mm Implanted:Qty: 2 on 09/05/2008 at OR [facility] N/A: Spine Cervical [employer] 1897-06-017 / / Screw Inner Mntr [id number] - [id number] Implanted:Qty: 8 on 05/07/2010 at OR [facility] N/A: Spine Cervical JNJ : [employer] [id number] / / Envista Intraocular Lens Implanted:Qty: 1 on 03/10/2022 by Liang Marshall MD at OR [facility] Right: Eye [employer] 08/13/2023 [id number] / [id number] / [id number] Envista Intraocular Lens Implanted:Qty: 1 on 03/24/2022 by Liang Marshall MD at [facility] Left: Eye [employer]OMB 07/13/2024 [id number] / [id number] / [id number] documented as of this encounter Visit Diagnoses Diagnosis Routine general medical examination at a health care facility- Primary Risk and functional assessment Screening for unspecified condition Cardiac pacemaker in situ Cerebrovascular disease, arteriosclerotic, post-stroke Cerebral atherosclerosis Chronic atrial fibrillation (HCC) Atrial fibrillation Chronic kidney disease, stage 3b (HCC) Complex sleep apnea syndrome Unspecified sleep apnea Diabetes mellitus due to underlying condition with severe nonproliferative diabetic retinopathy with macular edema, unspecified eye (HCC) Diabetic ulcer of toe of right foot associated with type 2 diabetes mellitus, limited to breakdown of skin ([facility]) DYSLIPIDEMIA, GOAL LDL BELOW 100 Other and unspecified hyperlipidemia Essential hypertension with goal blood pressure less than 130/80 H/O gastric bypass Bariatric surgery status History of [place] (myocardial infarction) Old myocardial infarction HTN, goal below 140/90 Unspecified essential hypertension Hyperparathyroidism, secondary renal (HCC) Secondary hyperparathyroidism (of renal origin) 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 kidney disease ([facility]) [facility] current use of 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 Nocturnal hypoxemia Hypoxemia Non-pressure chronic ulcer of other part of right foot with unspecified severity ([facility]) Sleep apnea treated with nocturnal BiPAP Type 2 diabetes mellitus with hemoglobin A1c goal of less than 7.5% ([facility]) Type 2 diabetes mellitus with peripheral vascular disease ([facility]) 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, without long-term current use of insulin ([facility]) Type 2 diabetes mellitus with stage 3b chronic kidney disease, with long-term current use of insulin ([facility]) Type 2 diabetes, controlled, with peripheral neuropathy ([facility]) Type II or unspecified type diabetes mellitus with neurological manifestations, not stated as uncontrolled Vitamin B12 deficiency Other B-complex deficiencies documented in this encounter Advance Directives Documents on File Type Date Recorded Patient Assurance Senior Manager Expl anation POLST 01/26/2021 [place] [facility] FOR LIFE-SUSTAINING TREATMENT Latest Code Status on File Code Status Date Activated Date Inactivated Comments No Code 03/24/2022 7:56 AM 03/24/2022 1:57 PM This or wendy reflects the patients wishes and were consensually agreed upon. Question Answer Comments Discussion of Advance Directives occurred with: Patient Does the patient have a Living Will? No Does the patient have Health Care Power of Bulk Picker? No Code Status History Code Status Date Activated Date Inactivated Comments No Code 03/10/2022 7:41 AM 03/10/2022 2:02 PM This order reflects the patients wishes and were consensually agreed upon. Question Answer Comments Discussion of Advance Directives occurred with: Patient Does the patient have a Living Will? No Does the patient have Health Care Power of Bulk Picker? No Full Code 05/07/2010 8:55 AM 05/11/2010 9:01 PM This order reflects the patients wishes and were consensually agreed upon. Question Answer Comments Discussion of Advance Directives occurred with: Patient Does the patient have a Living Will? No Does the patient have Health Care Power of Bulk Picker? No Full Code 05/07/2010 6:07 AM 05/07/2010 [...] the patient have Health Care Power of Bulk Picker? No Care Teams Library Supervisor Relationship Specialty Start Date End Date Jocelyne Desai DO [address] [place] [address] [place] [address] PCP - General Internal Medicine 11/09/16 documented as of this encounter
--- OUTSIDE RECORDS SUMMARY | 2023-06-15 09:06 | External Medical Summary ---
Author Name Unknown Address Unknown Organization K01:[facility] [facility] [address] [facility] [address] Laboratory Report Ordering Provider Test Date Status KUSHAL DOUGHERTY 02/23/2023 16:05:14 Final Observation Date Value Abnormality Reference (Units ) Status BUN 02/23/2023 16:05:14 27 Above high normal 6-20 (mg/dL) Final Creatinine 02/23/2023 16:05:14 1.7 Above high normal 0.6-1.2 (mg/dL) Final Glomerular filtration rate/1.73 sq M.predicted [Volume Rate/Area] in Serum, Plasma or Blood by Creatinine-based formula (CKD-EPI) 02/23/2023 16:05:14 44 Below low normal >=60 (mL/min) Final eGFR is calculated based on the CKD-EPI 2020 equation SODIUM 02/23/2023 16:05:14 141 135-146 (m mol/L) Final Potassium 02/23/2023 16:05:14 4.6 3.5-5.1 (m mol/L) Final Cl 02/23/2023 16:05:14 109 Above high normal 98 -107 (mmol/L) Final CO2 02/23/2023 16:05:14 21 Below low normal 22- 32 (mmol/L) Final Anion gap 02/23/2023 16:05:14 11 7-15 (mmol /L) Final Glucose 02/23/2023 16:05:14 63 Below low normal 70- 120 (mg/dL) Final Calcium 02/23/2023 16:05:14 8.1 Below low normal 8.4 -10.2 (mg/dL) Final Performing Location [facility] [place] [address] [place] [address]
--- OUTSIDE RECORDS SUMMARY | 2023-06-15 09:07 | External Medical Summary | Summary of Care ---
Author Name Unknown Organization [facility] Address [address] [facility] [place] [address] Phone [phone] Care Team Providers Care Manager Of Engineering Name Role Phone DesaiElissaJocelynejohn Briggs Primary Care Provider + [phone] Reason for Visit * Reason Comments Outpatient Testing Encounter Details Date Type Department Care Team ([facility] st Contact Info) Description 02/16/2023 11:10 AM EST Laboratory Laboratory [address] [place] [phone] [place] [address] Chronic atrial fibrillation (HCC) Allergies No known [...] be different from the original. Good connectivity [facility] for wound care [phone] Televideo if needed. 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 1 Status [...] ICD-10 update of inactive term PLATT RESEARCH OTHER*[id number] 02/20/2007 ADVANCE DIRECTIVE INFORMATION 01/19/2005 Overview: Yes, [...] [place] office early next week will need [facility] provider recheck Multiple and open [...] 11/17/19 23 LUMBAGO 12/24/2002 05/09/2007 LOC PRIM [id number] 12/24/200208/13 DEGENERATIVE SKIN DISORD 12/24/2002 VERTEBRAL FX [...] Call Center WB [phone] Public [place] [address] [facility] [address] [facility] [place] [address] 02/23/2023 3:00 PM EST Office Visit Nephrology [address] [place] [address] Jennifer Agustin MD [address] [facility] [place] [address] 06/06/2023 2:30 PM EDT Office Visit Family Medicine [address] [place] [phone] Jocelyne Desai [address] [place] [address] 06/08/2023 9:00 AM EDT Office Visit Cardiology [address] [place] [address] Greg Mckeon PA-C [address] [place] [address] 02/20/2024 12:30 PM EST Nurse Only Ancillary [address] [place] [address] [place], Nurse Annual [address] [place] [address] Pending Results Name Type Priority Associated Diagnoses Date /Time PT INR Lab Routine Chronic atrial fibrillation (HCC) 02/16/2023 11:02 AM EST Scheduled Procedures Name Priority Associated Diagnoses [...] Additional history exists CKD PHOS USE SMARTSET 59742 11/17/202305/2022, 09/29/2021, 05/12/2021, Additional history exists Diabetic Foot Exam 11/17/2023 11/16/2022, 0 05/05/2021, 11/22/2017, Additional history exists CKD HGB USE SMARTSET 93898 01/18/202401/17, 01/17/2023, 11/16/2022, Additional history exists Depression [...] this encounter Medical Devices Implanted Type Area Press Hand Device Identifier Shelf Expiration Date Model / Serial / Lot Shaft Fibula 6cm [id number] - [id number] Implanted:Qty: 1 on 09/05/2008 at [place] [facility] Tissue - Human N/A: Spine Cervical MUSCULOSKELETAL TRANSPLANT FND 04/20/2010 [id number] / [id number] 0P / Stent Eso Gw 22x70 [id number] - [id number] Implanted:Qty: 1 on 01/21/2008 at OR [facility] N/A: Esophagus [employer] 04/12/2009 [id number] / / [id number] Depuy Uniplate Screw 14mm Implanted:Qty: 2 on 09/05/2008 at OR [facility] N/A: Spine Cervical [employer] 1897-06-017 / / Screw Inner Mntr [id number] - [id number] Implanted:Qty: 8 on 05/07/2010 at [place] [facility] N/A: Spine Cervical JNJ : [employer] [id number] / / Envista Intraocular Lens Implanted:Qty: 1 on 03/10/2022 by Liang Marshall MD at [facility] Right: Eye [employer]OM[employer] 08/13/2023 [id number] / [id number] / [id number] Envista Intraocular Lens Implanted:Qty: 1 on 03/24/2022 by Liang Marshall MD at OR [facility] Left: Eye [employer]CH [employer] LOMB 07/13/2024 [id number] / [id number] / [id number] documented as of this encounter Visit Diagnoses Diagnosis Chronic atrial fibrillation (HCC) Atrial fibrillation documented in this encounter Advance Directives Documents on File Type Date Recorded 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 Question Answer Comments Discussion of Advance Directives occurred with: Patient Does the patient have a Living Will? No Does the patient have Health Care Power of Hair Machine Operator? No Code Status History Code Status Date Activated Date Inactivated Comments No Code 03/10/2022 7:41 AM 03/10/2022 2:02 PM This order reflects the patients wishes and were consensually agreed upon. Question Answer Comments Discussion of Advance Directives occurred with: Patient Does the patient have a Living Will? No Does the patient have Health Care Power of Hair Machine Operator? No Full Code 05/07/2010 8:55 AM 05/11/2010 9:01 PM This order reflects the patients wishes and were consensually agreed upon. Question Answer Comments Discussion of Advance Directives occurred with: Patient Does the patient have a Living Will? No Does the patient have Health Care Power of Hair Machine Operator? No Full Code 05/07/2010 6:07 AM [...] the patient have Health Care Power of Hair Machine Operator? No Care Teams Manager Of Engineering Relationship Specialty Start Date End Date Jocelyne Desai DO [address] [place] [address] [place] [address] PCP - General Internal Medicine 11/09/16 documented as of this encounter
--- OUTSIDE RECORDS SUMMARY | 2023-06-15 09:07 | External Medical Summary | Summary of Care ---
Author Name Unknown Organization [facility] Address [address] [facility] [place] [address] Phone [phone] Care Team Providers Care Ct Mri Technologist Name Role Phone Jocelyne Desai Primary Care Provider + [phone] Reason for Visit * Reason Comments Adult Annual Wellness Visit, Subsequent Visit Encounter Details Date Type Department Care Team (Late st Contact Info) Description 02/16/2023 10:00 AM EST Nurse Only Ancillary [address] [place] [address] [place], Nurse [address] [place] [address] Adult Annual Wellness Visit, Subsequent Visit Allergies [...] [facility] for wound care [phone] Televideo if needed. Problem Noted Date Diagnosed [...] up with podiatry,. 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 Sincerely, Jocelyne Desai, DO 02/16/2023 [facility] Calendar (as of Visit date not [...] your insurance company to determine what's covered. [employer] is a great tool that helps you review your medical record online, including test results, doctor notes and your health summary. You can also schedule appointments with me and other members of your care team, request prescription refills and ask for advice related to your medical conditions at [email or web address]. documented in this encounter Progress Notes * [...] no osteomyelitis Atrial fibrillation (HCC) Atrial fibrillation ([facility]) Atrial fibrillation ([facility]) B12 deficiency 12/21/2015 Background diabetic retinopathy(362.01) Cervical spinal stenosis 2007 Cervical spondylosis with myelopathy Cervical spondylosis with myelopathy 2007 Chronic atrial fibrillation ([facility]) 01/12/2015 Closed fracture of unspecified part of vertebral column without mention of spinal cord injury 1989 T8 Degeneration of lumbosacral intervertebral disc Degeneration of lumbosacral intervertebral disc Degeneration of thoracic intervertebral disc Degeneration of thoracic intervertebral disc Degenerative skin disorder Necrobiosis lipoidica Depressive disorder, not elsewhere classified Depressive disorder, not elsewhere classified Diabetic foot ulcer ([facility]) 04/27/2011 Displacement of cervical intervertebral disc without myelopathy 2007 C4-5 DM neuropathy, type II diabetes mellitus ([facility]) 07/30/2012 DM type 2 causing renal disease ([facility]) DIABETES TYPE II W RENAL MANIFEST DM type 2, goal A1c below 7 DM type 2, not at goal ([facility]) 1998 Dyslipidemia, goal LDL below 100 01/20/2009 [...] or foot 04/20/2005 Lumbago Microalbuminuric diabetic nephropathy ([facility]) 06/03/2014 Mixed dyslipidemia Morbid obesity, BMI not known ([facility]) Other B-complex deficiencies Other hammer toe (acquired) 11/13/2004 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 Paroxysmal SVT (supraventricular tachycardia) 04/23/2013 Perforation of esophagus 01/21/08 PERFORATED ESOPHAGUS 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 ([facility]) 07/30/2012 Peripheral sensory neuropathy 01/12/2015 Plantar fibromatosis 04/20/2005 Primary localized osteoarthrosis, lower leg OA of knees PVD (peripheral vascular disease) ([facility]) 11/09/2011 PVD (peripheral vascular disease) ([facility]) 11/09/2011 In a combination Rupture of flexor [...] PROXIMAL DIAGNOSTIC performed by Janice Shoemaker, at[facility]OSCOPY [facility] CYSTOSCOPY 02/16/2015 EGD, FLEXIBLE, DIAGNOSTIC 09/20/2007 UPPER GI ENDOSCOPY DIAGNOSTIC performed by AKUSHAL WHTIE at [facility] EGD, FLEXIBLE, DIAGNOSTIC 01/04/2008 UPPER GI ENDOSCOPY DIAGNOSTIC performed by KAUSHAL WHITE at [facility] EGD, FLEXIBLE, DIAGNOSTIC 03/21/2008 UPPER GI ENDOSCOPY DIAGNOSTIC performed by KAUSHAL WHITE at [facility] EGD, FLEXIBLE, TRANSENDOSCOPIC DILATION <30MM 01/04/2008 UPPER GI ENDOSCOPY BALLOON DILATION LESS THAN 30MM performed by KAUSHAL WHITE at [facility] EXPLORATION OF ABDOMEN 01/21/2008 EXPLORATORY LAPAROTOMY performed by KAUSHAL WHITE at [facility] FORM SKIN PEDICLE, TRUNK 02/14/1956 to right forearm INFORMATION Gum surgery/cyst removed INFORMATION 02/13/2005 ORAL CYST REMOVAL INJECTION OF EYE DRUG Right 12/30/2021 # 1 Avastin OD, Dr. Hodge INJECTION OF EYE DRUG Right 04/01/2022 # 2 Avastin OD, Dr. Hodge INSERT/REPLACE PACEMAKER,ATRIAL/VENTRICULAR 04/11/2013 04/11/2013 placement of siingle-chamber pacemaker via left subclavian approach [facility] DR.Mar Garcia - symptomatic bradycardia LAPAROSCOPE PROCEDURE, LIVER 09/20/2007 UNLISTED LAPAROSCOPIC PROCEDURE LIVER performed by KAUSHAL WHITE at [facility] LAPAROSCOPIC GASTRIC BYPASS/BHUPINDER-EN-Y 09/20/2007 LAPAROSCOPIC GASTRIC RESTRICTIVE BYPASS BHUPINDER EN Y performed by KAUSHAL WHITE at [place] [facility] LASER SURGERY OF INNER EYE STRANDS Bilateral "about 20- 25 years ago" MICROSURGERY ADD-ON 05/07/2010 MICROSURGICAL SURGERY REQUIRING MICROSCOPE LISTED SEPARATELY performed by GAVIN BHARDWAJ at [facility] MRI FOOT WO CONTRAST 04/06/2011 Osteomyelitis of the distal phalanx of the 2nd digit. Reactive edema versus early osteomyelitis of the 2nd middle phalanx NECK SPINE FUSION (CERV, BELOW C2) 09/05/2008 ARTHRODESIS SPINE ANTERIOR CERVICAL performed by GAVIN BHARDWAJ at [place] [facility] NECK SPINE FUSION (CERV, BELOW C2) 05/07/2010 ARTHRODESIS SPINE ANTERIOR CERVICAL performed by GAVIN BHARDWAJ at [place] [facility] NECK SPINE FUSION (CERV, BELOW C2) 05/07/2010 ARTHRODESIS SPINE POSTERIOR CERVICAL performed by GAVIN BHARDWAJ at [facility] OTHER (INFORMATION) ACT 112 SIGNED 06/11/20 DR. HODGE OTHER (INFORMATION) Bilateral AVASTIN OU CONSENT DR. HODGE/MITESH EXP. 12/30/22 PACEMAKER INSERTION PER 01/18/2023 Dr. Rodriguez [facility] PARTIAL AMPUTATION OF TOE Right 12/2020 3rd toe and release tendon of other toes at the same time. REMOVAL OF TONSILS, AGE 12+ REMOVE ADDED VERTEBRAL SEG, NECK 05/07/2010 VERTEBRAL CORPECTOMY CERVICAL EACH ADDITIONAL LEVEL performed by GAVIN BHARDWAJ at [facility] REMOVE CATARACT, INSERT LENS PROSTH Right 03/10/2022 right EXTRACAPSULAR CATARACT REMOVAL WITH INTRAOCULAR LENS performed by Liang Marshall MD at OR [facility] REMOVE CATARACT, INSERT LENS PROSTH Left 03/24/2022 left EXTRACAPSULAR CATARACT REMOVAL WITH INTRAOCULAR LENS performed by Liang Marshall MD at OR [facility] REMOVE NECK SPINE DISK, SINGLE 09/05/2008 DISKECTOMY ANTERIOR CERVICAL performed by GAVIN BHARDWAJ at [facility] REMOVE NECK SPINE DISK, SINGLE 05/07/2010 DISKECTOMY ANTERIOR CERVICAL performed by GAVIN BHARDWAJ at [facility] REMOVE VERTEBRAL BODY, NECK, SINGLE 05/07/2010 VERTEBRAL CORPECTOMY ANTERIOR CERVICAL performed by GAVIN BHARDWAJ at [facility] REPAIR FINGER/HAND TENDON, EACH & right index finger tendon transfer from toe - [facility] SPINE FIX DEV, ANT, 4-7 SEG, INSERT 05/07/2010 ANTERIOR INSTRUMENTATION 4 TO 7 VERTEBRAL SEGMENTS performed by GAVIN BHARDWAJ at [facility] SPINE SEG FIX, POST, 3-6 SEG, INSERT 05/07/2010 POSTERIOR SPINE SEGMENTAL INSTRUMENTATION 3 TO 6 PSF performed by GAVIN BHARDWAJ at [facility] UPPR GI ENDOSCOPY W/STENT 01/21/2008 UPPER GI ENDOSCOPY WITH TRANSENDOSCOPIC STENT PLACEMENT performed by KAUSHAL WHITE [place] [facility] Family History Problem Relation Age of Onset [...] Admissions (within the last year): Hospital, Location: [facility] 10/05 cellulitis ER within 30 days: No [...] hemoglobin A1c goal of less than 7.5% ([facility]) E11.9 HTN, goal below 140/90 I10 DYSLIPIDEMIA, GOAL LDL BELOW 100 E78.5 [place] RESEARCH OTHER*[id number] Erectile dysfunction N52.9 DM neuropathy, type II diabetes mellitus ([facility]) E11.40 Paroxysmal SVT (supraventricular tachycardia) I47.10 Cardiac pacemaker in situ Z95.0 Venous insufficiency of both lower extremities I87.2 Microalbuminuric diabetic nephropathy ([facility]) E11.21 Chronic atrial fibrillation ([facility]) I48.20 Peripheral sensory neuropathy G60.8 Essential hypertension with goal blood pressure less than 130/80 I10 Vitamin B12 deficiency E53.8 Cerebrovascular disease, arteriosclerotic, post-stroke I67.2, Z86.73 Status post amputation of lesser toe of right foot ([facility]) Z89.421 Type 2 diabetes, controlled, with peripheral neuropathy ([facility]) E11.42 Type 2 diabetes mellitus with peripheral vascular disease ([facility]) E11.51 Persistent proteinuria R80.1 H/O gastric bypass Z98.84 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 current use of 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 Z79.01 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 Nocturnal hypoxemia G47.34 Type 2 diabetes mellitus with stage 3b chronic kidney disease, with long-term current use of insulin ([facility]) E11.22, N18.32, Z79.4 Sleep apnea treated with nocturnal BiPAP G47.30 PAD (peripheral artery disease) ([facility]) I73.9 Hyperparathyroidism, secondary renal ([facility]) N25.81 Diabetes mellitus due to underlying condition with severe nonproliferative diabetic retinopathy with macular edema, unspecified eye ([facility]) E08.3419 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 kidney disease ([facility]) I13.0, I50.32, N18.32 Esophageal obstruction K22.2 S/P angioplasty with stent Z95.820 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, without long-term current use of insulin ([facility]) E11.3511 Chronic kidney disease, stage 3b ([facility]) N18.32 Non-pressure chronic ulcer of other part of right foot with unspecified severity ([facility]) L97.519 Acquired absence of right great toe ([facility]) Z89.411 Diabetic ulcer of toe of right foot associated with type 2 diabetes mellitus, limited to breakdown of skin ([facility]) E11.621, L97.511 History of IA (myocardial infarction) I25.2 Trigger ring finger of [...] Community Resources: Meals on Wheels and food [employer] Functional Status and ADL Skills: Has patient [...] weakness Visually impaired Older than age 70 Mno-Ja-gfr-Go Test: Time began at 1000. Patient stood from sitting position and walked approximately 10 feet, returned and sat down. Total time for pkw-ro-njn-go test was 11 seconds. Mps-Tx-nsl-Go Test completed? Yes Gender Specific Preventative Plan: Health Maintenance Topic Date Due Diabetic Eye Exam 12/30/2022 HbA1c 05/18/2023 GFR 07/19/2023 Albumin/Creatinine Ratio 11/17/2023 Diabetic Foot Exam 11/17/2023 CKD PHOS USE SMARTSET 69299 11/17/2023 CKD HGB USE SMARTSET 25833 01/18/2024 Depression Screening 02/17/2024 DTaP,Tdap,and Td Vaccines [...] part of right foot with unspecified severity ([facility]) Diabetic ulcer of toe of right foot associated with type 2 diabetes mellitus, limited to breakdown of skin ([facility]) Patient does see wound clinic once wkly [...] skin removal at some point History of IA (myocardial infarction) HTN, goal below 140/90 - Med reconciliation completed and compliance discussed. - pt to continue present medications. 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 The [place] Diabetes Association (ADA) advises an A1C test [...] should keep an A1C below 7%. The [place] Association of Clinical Endocrinologists advises an A1C [...] ready for the test. Last Reviewed Date: 04/13/202119999416-7822 [employer]. All rights reserved. This information is not intended as a substitute for professional medical care. Always follow your healthcare professional's instructions. * Pt Handout (on AVS) - Nara Bernstein RN - 02/16/2023 10:48 AM EST Images from the original note were not included. [id number] 5 Steps for Eating Healthier Changing the [...] size of your fist. Last Reviewed Date: 01/13/202219997900-7964 [employer]. All rights reserved. This information is not intended as a substitute for professional medical care. Always follow your healthcare professional's instructions. documented in this encounter Plan of Treatment Upcoming Encounters Date Type Department Care Team (Late st Contact Info) Description 02/17/2023 6:15 AM EST Anticoagulation Pharmacy Call Center [phone] [facility] [place] [address] Ccp, [facility] [address] [facility] [place] [address] 02/23/2023 3:00 PM EST Office Visit Nephrology [address] [place] [address] [facility]ust[facility] [address] [facility] [address] 06/06/2023 2:30 PM EDT Office Visit Family Medicine [address] [place] [phone] Jocelyne Desai, [address] [place] [address] 06/08/2023 9:00 AM EDT Office Visit Cardiology [address] [place] [address] Greg Mckeon PA-C [address] [place] [address] 02/20/2024 12:30 PM EST Nurse Only Ancillary [address] [place] [address] [place], Nurse Annual [address] [place] [address] Scheduled Procedures Name Priority Associated Diagnoses Date/Ti [...] Additional history exists CKD PHOS USE SMARTSET 11479 11/17/202305/2022, 09/29/2021, 05/12/2021, Additional history exists Diabetic Foot Exam 11/17/2023 11/16/2022, 0 05/05/2021, 11/22/2017, Additional history exists CKD HGB USE SMARTSET 49139 01/18/202401/17, 01/17/2023, 11/16/2022, Additional history exists Depression [...] this encounter Medical Devices Implanted Type Area Material Specialist Device Identifier Shelf Expiration Date Model / Serial / Lot Shaft Fibula 6cm [id number] - [id number] Implanted:Qty: 1 on 09/05/[address] [facility] Tissue - Human N/A: Spine Cervical [employer]OSKELET[employer]ANSPLANT FND 04/20/2010 [id number] / [id number] 0P / Stent Eso Gw 22x70 [id number] - [id number] Implanted:Qty: 1 on 01/21/[address] [facility] N/A: Esophagus [employer] 04/12/2009 [id number] / / [id number] Depuy Uniplate Screw 14mm Implanted:Qty: 2 on 09/05/[address] [facility] N/A: Spine Cervical [employer] [id number] / / Screw Inner Mntr [id number] - [id number] Implanted:Qty: 8 on 05/07/[address] [facility] N/A: Spine Cervical JNJ : [employer] [id number] / / Envista Intraocular Lens Implanted:Qty: 1 on 03/10/2022 by Liang Marshall MD at OR [facility] Right: Eye [employer]OM[employer] 08/13/2023 [id number] / [id number] / [id number] [employer] Intraocular Lens Implanted:Qty: 1 on 03/24/2022 by Liang Marshall MD at OR [facility] Left: Eye [employer]OMB 07/13/2024 [id number] / [id number] / [id number] documented as of this encounter Visit Diagnoses [...] mellitus, limited to breakdown of skin (HCC) DYSLIPIDEMIA, GOAL LDL BELOW 100 Other and unspecified hyperlipidemia Essential hypertension with goal blood pressure less than 130/80 H/O gastric bypass Bariatric surgery status History of IA (myocardial infarction) Old myocardial infarction HTN, goal below 140/90 Unspecified essential hypertension Hyperparathyroidism, secondary renal (HCC) Secondary hyperparathyroidism (of renal origin) 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 kidney disease (HCC) correction current use of 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 Nocturnal hypoxemia Hypoxemia Non-pressure chronic ulcer of other part of right foot with unspecified severity ([facility]) Sleep apnea treated with nocturnal BiPAP Type 2 diabetes mellitus with hemoglobin A1c goal of less than 7.5% ([facility]) Type 2 diabetes mellitus with peripheral vascular disease ([facility]) 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, without long-term current use of insulin ([facility]) Type 2 diabetes mellitus with stage 3b chronic kidney disease, with long-term current use of insulin ([facility]) Type 2 diabetes, controlled, with peripheral neuropathy ([facility]) Type II or unspecified type diabetes mellitus with neurological manifestations, not stated as uncontrolled Vitamin B12 deficiency Other B-complex deficiencies documented in this encounter Advance Directives Documents on File Type Date Recorded 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 No Code Status History Code Status Date Activated Date Inactivated Comments No Code 03/10/2022 7:41 AM 03/10/2022 2:02 PM This order reflects the patients wishes and were consensually agreed upon. Question Answer Comments Discussion of Advance Directives occurred with: Patient Does the patient have a Living Will? No Does the patient have Health Care Power of Principal Embedded Software Engineer? No Full Code 05/07/2010 8:55 AM 05/11/2010 9:01 PM This order reflects the patients wishes and were consensually agreed upon. Question Answer Comments Discussion of Advance Directives occurred with: Patient Does the patient have a Living Will? No Does the patient have Health Care Power of Principal Embedded Software Engineer? No Full Code 05/07/2010 6:07 AM [...] the patient have Health Care Power of Principal Embedded Software Engineer? No Care Teams Ct Mri Technologist Relationship Specialty Start Date End Date Jocelyne Desai DO [address] [place] [address] [place] [address] PCP - General Internal Medicine 11/09/16 documented as of this encounter
--- OUTSIDE RECORDS SUMMARY | 2023-06-15 09:07 | External Medical Summary ---
Author Name Unknown Address Unknown Organization K01:[facility] [place] [address] [place] [address] Laboratory Report Ordering Provider Test Date Status DONNELL PRIETO 02/16/2023 11:02:08 Final Please draw PT/INR every 1-4 weeks or as requested by the [facility]

Warfarin Therapy
INR: 2.0-3.0 conventional anticoagulation
INR: 2.5-3.5 high intensity anticoagulation Observation Date Value Abnormality Reference (Units ) Status PT 02/16/2023 11:02:08 21.3 Above high normal 11 .6-15.2 (seconds) Final INR 02/16/2023 11:02:08 1.8 Above high normal 0. 8-1.2 Final Performing Location [facility] [place] [address] [place] [address]
--- OUTSIDE RECORDS SUMMARY | 2023-06-15 09:08 | External Medical Summary | Summary of Care ---
Author Name Unknown Organization [facility] [address] [facility] [address] Phone [phone] Care Team Providers Care Payment Poster Name Role Phone DesaiElissaJocelynejohn Briggs Primary Care Provider + [phone] Encounter Details Date Type Department Care Team (Late st Contact Info) Description 02/10/2023 Result Scan Unspecified Department Acacia Carpenter DO [address] [place] [address] <No scans attached> Allergies No known active allergiesdocumented as of this encounter (statuses as of 02/10/2023) Medications Medication Sig Dispensed Refills Start Date [...] Tablet by mouth every evening. 0 Active Furosemide 20 MG Oral Tablet (Lasix)Indications :Stage 3 chronic kidney disease, unspecified whether stage 3a or 3b CKD (HCC),Persistent proteinuria TAKE ONE TABLET BY MOUTH EVERY DAY NEEDED FOR SWELLING 100 Tablet 1 05/13/2022 05/13/2023 Active Additional Information Patient taking differently: 20 mg PRN, swelling/weight gain, Reported on 01/10/2023 Atorvastatin Calcium 40 MG Oral Tablet (Lipitor) [...] CLINIC 180 Tablet 3 02/04/2023 02/04/2024 Active documented as of this encounter (statuses as of 02/10/2023) Active Problems Patient Care Coordination No te Formatting of this note migh t be different from the original. Good connectivity [facility] for wound care [phone] Televideo if needed. Problem Noted Date Diagnosed [...] up with podiatry,. 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 SPINAL STENOSIS-LUMBAR 09/23/2002 Vitamin D deficiency Cervical spinal stenosis documented as of this encounter (statuses as of 02/10/2023) Resolved Problems Problem Noted Date Diagnosed Date Resolved Date Depression, unspecified 11/09/2021 03/2 Depression, unspecified 11/09/2021 100 05/2022 Cellulitis of right leg 07/13/202105/2022 Last [...] 11/17/19 23 LUMBAGO 12/24/2002 05/09/2007 LOC PRIM [id number] 12/24/200208/13 DEGENERATIVE SKIN DISORD 12/24/2002 VERTEBRAL FX [...] as of this encounter (statuses as of 02/10/2023) Immunizations Name Administration Dates Next Due COVID-19 [...] Team (Late st Contact Info) Description 02/16/2023 6:30 AM EST Anticoagulation Pharmacy Call Center WB [address] [place] [address] [facility] 58 60 [facility] [place] [address] 02/16/2023 10:00 AM EST Nurse Only Ancillary [address] [place] [address] [place], Nurse [address] [place] [address] 02/23/2023 3:00 PM EST Office Visit Nephrology [address] [place] [address] [facility]ustin [facility] [address] [facility] [address] 06/06/2023 2:30 PM EDT Office Visit Family Medicine [address] [place] [phone] Jocelyne Desai[address] [place] [address] 06/08/2023 9:00 AM EDT Office Visit Cardiology [address] [place] [address] Greg Mckeon PA-C [address] [place] [address] Scheduled Procedures Name Priority Associated Diagnoses Date/Ti me COLONOSCOPY FLEXIBLE PROXIMA L DIAGNOSTIC Recall Screening for colon cancer Health Maintenance Due Date Last Done Comments Cologuard 1997 Sigmoidoscopy 1997 Fecal Occult Blood Test 09/02/2009 09/02/2008, 05/04 Diabetic Eye Exam 12/30/2022 12/30/2021, , 12/28/2021, Additional history exists Depression Screening 02/09/2023 02/09/2022 HbA1c 05/18/2023 11/16/2022, 04/15, 11/09/2021, Additional history exists GFR 07/19/2023 01/17/2023, 05/2022, 04/13/2022, Additional history exists Albumin/Creatinine Ratio 11/17/2023 023, 05/13/2022, 09/29/2021, Additional history exists CKD PHOS USE SMARTSET 77393 11/17/202305/2022, 09/29/2021, 05/12/2021, Additional history exists Diabetic Foot Exam 11/17/2023 11/16/2022, 0 05/05/2021, 11/22/2017, Additional history exists CKD HGB USE SMARTSET 17339 01/18/202401/17, 01/17/2023, 11/16/2022, Additional history exists DTaP,Tdap,and Td Vaccines (3 - Td or [...] this encounter Medical Devices Implanted Type Area Quality Assurance Supervisor Device Identifier Shelf Expiration Date Model / Serial / Lot Shaft Fibula 6cm [id number] - [id number] Implanted:Qty: 1 on 09/05/2008 at OR [facility] [place] Tissue - Human N/A: Spine Cervical MUSCULOSKELETAL TRANSPLANT FND 04/20/2010 [id number] / [id number] 0P / Stent Eso Gw 22x70 [id number] - [id number] Implanted:Qty: 1 on 01/21/2008 at OR [facility] [place] N/A: Esophagus [employer] 04/12/2009 [id number] / / [id number] Depuy Uniplate Screw 14mm Implanted:Qty: 2 on 09/05/2008 at OR [facility] N/A: Spine Cervical TAMMY & TAMMY DEPUY 1897-06-017 / / Screw Inner Mntr [id number] - [id number] Implanted:Qty: 8 on 05/07/2010 at OR [facility] [facility] N/A: Spine Cervical JNJ : [employer] [id number] / / [id number] Intraocular Lens Implanted:Qty: 1 on 03/10/2022 by Liang Marshall MD at OR [facility] Right: Eye BAUSCH & LOMB 08/13/2023 [id number] / [id number] / [id number] Envista Intraocular Lens Implanted:Qty: 1 on 03/24/2022 by Liang Marshall MD at OR [facility] Left: Eye BAUSCH & LOMB 07/13/2024 [id number] / [id number] / [id number] documented as of this encounter Procedures Procedure Name Priority Date/Time Associated Diagnosis Comments CARDIOLOGY SCANNED RESULT 02/10/2023 documented in this encounter Results * CARDIOLOGY SCANNED RESULT (02/10/2023) 02/10/2023 Acacia Carpenter DO OTHER documented in this encounter Advance Directives Documents on File Type Date Recorded 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 No Code Status History Code Status Date Activated Date Inactivated Comments No Code 03/10/2022 7:41 AM 03/10/2022 2:02 PM This order reflects the patients wishes and were consensually agreed upon. Question Answer Comments Discussion of Advance Directives occurred with: Patient Does the patient have a Living Will? No Does the patient have Health Care Power of Planning Associate? No Full Code 05/07/2010 8:55 AM 05/11/2010 9:01 PM This order reflects the patients wishes and were consensually agreed upon. Question Answer Comments Discussion of Advance Directives occurred with: Patient Does the patient have a Living Will? No Does the patient have Health Care Power of Planning Associate? No Full Code 05/07/2010 6:07 AM 05/07/2010 [...] the patient have Health Care Power of Planning Associate? No Care Teams Payment Poster Relationship Specialty Start Date End Date Jocelyne Desai DO [address] [place] [address] [place] [address] PCP - General Internal Medicine 11/09/16 documented as of this encounter
--- OUTSIDE RECORDS SUMMARY | 2023-06-15 09:08 | External Medical Summary | Summary of Care ---
Author Name Unknown Organization [facility] Address [address] [facility] [place] [address] Phone [phone] Care Team Providers Care Media Associate Name Role Phone Jocelyne Desai Primary Care Provider [phone] Reason for Visit * Reason Onset Date Comments Appointment 02/15/2023 Encounter Details Date Type Department Care Team ([facility] st Contact Info) Description 02/15/2023 Telephone Pharmacy Call Center [address] [place] [id number] [facility] 58 [address] [place] [address] Appointment Allergies No known active allergiesdocumented as of this encounter (statuses as of 02/15/2023) Medications Medication Sig Dispensed Refills Start Date [...] as of this encounter (statuses as of 02/15/2023) Active Problems Patient Care Coordination No te Formatting of this note migh t be different from the original. Good connectivity [facility] for wound care [phone] Televideo if needed. Problem Noted Date Diagnosed [...] with podiatry,. 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 SPINAL STENOSIS-LUMBAR 09/23/2002 Vitamin D deficiency Cervical spinal stenosis documented as of this encounter (statuses as of 02/15/2023) Resolved Problems Problem Noted Date Diagnosed Date Resolved Date Depression, unspecified 11/09/20212 Depression, unspecified 11/09/2021 100 05/2022 Cellulitis of right leg 07/13/202105/2022 Last Assessment & Plan: Suspect this could be early/localized. Will treat with 7 days antibiotic. If pt cannot be reassess by Dr. Braxton office early next week will need [facility] provider recheck Multiple and open wound of [...] 11/17/19 23 LUMBAGO 12/24/2002 05/09/2007 LOC PRIM [id number] 12/24/200208/13 DEGENERATIVE SKIN DISORD 12/24/2002 VERTEBRAL FX [...] as of this encounter (statuses as of 02/15/2023) Immunizations Name Administration Dates Next Due COVID-19 [...] encounter Miscellaneous Notes * Telephone Encounter - Sofie Danielle RPh - 02/15/2023 9:54 AM EST Noted - thank you; pt has stable weekly warfarin dose -- ACC to follow-up as scheduled for lab results. Thanks, Sofie Danielle, PharmD Clinical Pharmacist [facility] ([facility]) (Formerly Telepharmacy) [phone] 02/15/2023 9:54 AM * Telephone Encounter - Tara Yi OSA - 02/15/2023 9:03 AM EST Caller's name: Anabelle Preferred call back number(OFFICE NUMBER FOR ): [phone] Reason for call: Anabelle calling from [facility] pt is going to the wound clinic and wont be homefor them to draw him so he is going to a [facility] lab tomorrow because he has an appt. Thank you, Tara Yi Cyber Reverse Engineer [facility] 02/15/2023,9:03 AM documented in this encounter Plan of Treatment Upcoming Encounters Date Type Department Care Team (Late st Contact Info) Description 02/16/2023 10:00 AM EST Nurse Only Ancillary [address] [place] [address] [place], Nurse [address] [place] [address] 02/17/2023 6:15 AM EST Anticoagulation Pharmacy Call Center [address] [facility] [place] [address] [facility] 58 60 [facility] [place] [address] 02/23/2023 3:00 PM EST Office Visit Nephrology [address] [place] [address] Jennifer Agustin MD [address] [place] [address] 06/06/2023 2:30 PM EDT Office Visit Family Medicine [address] [place] [phone] [address] [place] [address] 06/08/2023 9:00 AM EDT Office Visit Cardiology [address] [place] [address] Greg Mckeon PA-C [address] [place] [address] Scheduled Procedures Name Priority Associated Diagnoses Date/Ti [...] Additional history exists CKD PHOS USE SMARTSET 58120 11/17/2023 100 05/2022, 09/29/2021, 05/12/2021, Additional history exists Diabetic Foot Exam 11/17/2023 11/16/2022, 0 05/05/2021, 11/22/2017, Additional history exists CKD HGB USE SMARTSET 71500 01/18/202401/17, 01/17/2023, 11/16/2022, Additional history exists DTaP,Tdap,and [...] this encounter Medical Devices Implanted Type Area Oracle Developer Device Identifier Shelf Expiration Date Model / Serial / Lot Shaft Fibula 6cm [id number] - [id number] Implanted:Qty: 1 on 09/05/2008 at OR [facility] [place] Tissue - Human N/A: Spine Cervical MUSCULOSKELETAL TRANSPLANT FND 04/20/2010 [id number] / [id number] 0P / Stent Eso Gw 22x70 [id number] - [id number] Implanted:Qty: 1 on 01/21/2008 at OR [facility] [place] N/A: Esophagus [employer] 04/12/2009 [id number] / / [id number] Depuy Uniplate Screw 14mm Implanted:Qty: 2 on 09/05/2008 at OR [facility] [place] N/A: Spine Cervical TAMMY [employer] TAMMY DEPUY 1897-06-017 / / Screw Inner Mntr [id number] - [id number] Implanted:Qty: 8 on 05/07/2010 at OR [facility] [place] N/A: Spine Cervical JNJ : [employer] [id number] / / [id number] Intraocular Lens Implanted:Qty: 1 on 03/10/2022 by Liang Marshall MD at OR [facility] Right: Eye BAUSCH & LOMB 08/13/2023 [id number] / [id number] / [id number] Envista Intraocular Lens Implanted:Qty: 1 on 03/24/2022 by Liang Marshall MD at OR [facility] Left: Eye BAUSCH & LOMB 07/13/2024 [id number] / [id number] / [id number] documented as of this encounter Advance Directives Documents on File Type Date Recorded 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 Question Answer Comments Discussion of Advance Directives occurred with: Patient Does the patient have a Living Will? No Does the patient have Health Care Power of Administrative Assistant Data Entry? No Code Status History Code Status Date Activated Date Inactivated Comments No Code 03/10/2022 7:41 AM 03/10/2022 2:02 PM This order reflects the patients wishes and were consensually agreed upon. Question Answer Comments Discussion of Advance Directives occurred with: Patient Does the patient have a Living Will? No Does the patient have Health Care Power of Administrative Assistant Data Entry? No Full Code 05/07/2010 8:55 AM 05/11/2010 9:01 PM This order reflects the patients wishes and were consensually agreed upon. Question Answer Comments Discussion of Advance Directives occurred with: Patient Does the patient have a Living Will? No Does the patient have Health Care Power of Administrative Assistant Data Entry? No Full Code 05/07/2010 6:07 AM 05/07/2010 [...] the patient have Health Care Power of Administrative Assistant Data Entry? No Care Teams Media Associate Relationship Specialty Start Date End Date Jocelyne Desai DO [address] [place] [address] [place] [address] PCP - General Internal Medicine 11/09/16 documented as of this encounter
--- OUTSIDE RECORDS SUMMARY | 2023-06-15 09:08 | External Medical Summary | Summary of Care ---
Author Name Unknown Organization [facility] [address] [facility] [address] Phone [phone] Care Team Providers Care Head Start Director Name Role Phone Silvia Armas DO Primary Care Provider Reason for Visit * Reason Comments Medication Refill Encounter Details Date Type Department Care Team (Late st Contact Info) Description 02/11/2023 Refill Family Medicine [address] [address] Silvia Armas DO [address] [place] [address] [place] [address] Stage 3 chronic kidney disease, unspecified whether stage 3a or 3b CKD (HCC); Persistent proteinuria Allergies No known active allergiesdocumented as of this encounter (statuses as of 02/13/2023) Medications Medication Sig Dispensed Refills Start Date [...] SWELLING 100 Tablet 1 02/13/2023 4 Active Furosemide 20 MG Oral Tablet (Lasix)Indication s:Stage 3 chronic kidney disease, unspecified whether stage 3a or 3b CKD (HCC),Persistent proteinuria TAKE ONE TABLET BY MOUTH EVERY DAY NEEDED FOR SWELLING 100 Tablet 1 05/13/2022 3 Discontinue d(Refill) documented as of this encounter (statuses as of 02/13/2023) Active Problems Patient Care Coordination No te Formatting of this note migh t be different from the original. Good connectivity [facility] for wound care [phone] Televideo if needed. Problem Noted Date Diagnosed [...] up with podiatry,. 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 SPINAL STENOSIS-LUMBAR 09/23/2002 Vitamin D deficiency Cervical spinal stenosis documented as of this encounter (statuses as of 02/13/2023) Resolved Problems Problem Noted Date Diagnosed Date Resolved Date Depression, unspecified 11/09/2021 03/2 Depression, unspecified 11/09/202105/2022 Cellulitis of right leg 07/13/202105/2022 Last Assessment & Plan: Suspect this could be early/localized. Will treat with 7 days antibiotic. If pt cannot be reassess by Dr. Braxton office early next week will need [facility] provider recheck Multiple and open [...] 11/17/19 23 LUMBAGO 12/24/2002 05/09/2007 LOC PRIM [id number] 12/24/200208/13 DEGENERATIVE SKIN DISORD 12/24/2002 VERTEBRAL FX [...] as of this encounter (statuses as of 02/13/2023) Immunizations Name Administration Dates Next Due COVID-19 mRNA, LNP-s, No Pre serve, 2-Dose Series ([employer]) 03/19/2020 COVID-19 mRNA, LNP-s, No Pre serve, 2-Dose Series ([facility]) 02/16/2021,04/09/2020,03/19/2020 COVID-19, MRNA-LNP, 23-24, P F, 30 MCG/0.3 mL, 12 YRS AND ABOVE, IM ([facility]) 11/16/2022 Covid-19, Mrna, Lnp-s, Pf, B ivalent, [...] encounter Miscellaneous Notes * Telephone Encounter - Monroe Velázquez RPh - 02/13/2023 2:55 PM ESTSigned Prescriptions: Disp Refills Furosemide 20 MG Oral Tablet (Lasix) 100 Ta*1 Sig: TAKE ONE TABLET BY MOUTH EVERY DAY NEEDED FOR SWELLINGAuthorizing Provider: SILVIA ARMAS User: MONROE VELÁZQUEZ documented in this encounter Plan of Treatment Upcoming Encounters Date Type Department Care Team (Late st Contact Info) Description 02/16/2023 6:30 AM EST Anticoagulation Pharmacy Call Center [address] [facility] [place] [address] [facility] 58 60 [facility] [place] [address] 02/16/2023 10:00 AM EST Nurse Only Ancillary [address] [place] [address] [place] Nurse [address] [place] [address] 02/23/2023 3:00 PM EST Office Visit Nephrology [address] [place] [address] Jennifer Agustin MD [address] [place], [place] [address] 06/06/2023 2:30 PM EDT Office Visit Family Medicine [address] [place] [phone] [address] [place] [address] 06/08/2023 9:00 AM EDT Office Visit Cardiology [address] [place] [address] Greg Mckeon PA-C [address] [place] [address] Scheduled Procedures Name Priority Associated Diagnoses Date/Ti [...] Additional history exists CKD PHOS USE SMARTSET 63818 11/17/202305/2022, 09/29/2021, 05/12/2021, Additional history exists Diabetic Foot Exam 11/17/2023 11/16/2022, 0 05/05/2021, 11/22/2017, Additional history exists CKD HGB USE SMARTSET 20749 01/18/202401/17, 01/17/2023, 11/16/2022, Additional history exists DTaP,Tdap,and [...] this encounter Medical Devices Implanted Type Area Inspector Wire Rope Device Identifier Shelf Expiration Date Model / Serial / Lot Shaft Fibula 6cm [id number] - [id number] Implanted:Qty: 1 on 09/05/2008 at [place] [facility] [place] Tissue - Human N/A: Spine Cervical MUSCULOSKELETAL TRANSPLANT FND 04/20/2010 [id number] / [id number] 0P / Stent Eso Gw 22x70 [id number] - [id number] Implanted:Qty: 1 on 01/21/2008 at OR [facility] [place] N/A: Esophagus ALVE[employer]US INC 04/12/2009 21899-651 / / [id number] Depuy Uniplate Screw 14mm Implanted:Qty: 2 on 09/05/2008 at [place] [facility] [place] N/A: Spine Cervical TAMMY [employer] TAMMY DEPUY 1897-06-017 / / Screw Inner Mntr [id number] - [id number] Implanted:Qty: 8 on 05/07/2010 at [place] [facility] [place] N/A: Spine Cervical JNJ : [employer] [id number] / / Envista Intraocular Lens Implanted:Qty: 1 on 03/10/2022 by Liang Marshall MD at OR [facility] Right: Eye BAUSCH & LOMB 08/13/2023 [id number] / [id number] / [id number] Envista Intraocular Lens Implanted:Qty: 1 on 03/24/2022 by Liang Marshall MD at OR [facility] Left: Eye BAUSCH & LOMB 07/13/2024 [id number] / [id number] / [id number] documented as of this encounter Visit Diagnoses Diagnosis Stage 3 chronic kidney disease, unspecified whether stage 3a or 3b CKD (HCC) Persistent proteinuria Proteinuria documented in this encounter Advance Directives Documents on File Type Date Recorded 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 Question Answer Comments Discussion of Advance Directives occurred with: Patient Does the patient have a Living Will? No Does the patient have Health Care Power of General Road Foreman? No Code Status History Code Status Date Activated Date Inactivated Comments No Code 03/10/2022 7:41 AM 03/10/2022 2:02 PM This order reflects the patients wishes and were consensually agreed upon. Question Answer Comments Discussion of Advance Directives occurred with: Patient Does the patient have a Living Will? No Does the patient have Health Care Power of General Road Foreman? No Full Code 05/07/2010 8:55 AM 05/11/2010 9:01 PM This order reflects the patients wishes and were consensually agreed upon. Question Answer Comments Discussion of Advance Directives occurred with: Patient Does the patient have a Living Will? No Does the patient have Health Care Power of General Road Foreman? No Full Code 05/07/2010 6:07 AM 05/07/2010 [...] the patient have Health Care Power of General Road Foreman? No Care Teams Head Start Director Relationship Specialty Start Date End Date Silvia Armas DO [address] [place] [address] [place] [address] PCP - General Internal Medicine 11/09/16 documented as of this encounter
--- OUTSIDE RECORDS SUMMARY | 2023-06-15 09:09 | External Medical Summary | Summary of Care ---
Author Name Unknown Organization [facility] [address] [address] Phone [phone] Care Team Providers Care Trim Machine Adjuster Name Role Phone Jocelyne Desai Primary Care Provider [phone] Reason for Visit * Reason Comments Pacemaker Clinic Encounter Details Date Type Department Care Team (Latest Contact Info) Description 01/27/2023 9:15 AM EST Cardiac Studies Cardiology, [facility] [address] [place] [address] [place], Pacer Clinic [facility] [address] [place] [address] CHB (complete heart block) (HCC)*; Chronic atrial fibrillation (HCC); Cardiac pacemaker in situ Allergies No known active allergiesdocumented as of this encounter (statuses as of 02/09/2023) Medications Medication Sig Dispensed Refills Start Date [...] 0 Active Furosemide 20 MG Oral Tablet (Lasix)Indication s:Stage 3 chronic kidney disease, unspecified whether stage 3a or 3b CKD (HCC),Persistent proteinuria TAKE ONE TABLET BY MOUTH EVERY DAY NEEDED FOR SWELLING 100 Tablet 1 05/13/2022 4 Active Additional Information Patient taking differently: 20 [...] as of this encounter (statuses as of 02/09/2023) Active Problems Patient Care Coordination No te Formatting of this note migh t be different from the original. Good connectivity [facility] for wound care [phone] Televideo if needed. Problem Noted Date Diagnosed Date History of MS (myocardial infarction) 11/09/2021 Trigger ring finger of [...] ICD-10 update of inactive term PLATT RESEARCH OTHER*[id number] 02/20/2007 ADVANCE DIRECTIVE INFORMATION 01/19/2005 Overview: Yes, Patient instructed to provide copy of advance directive for provider to review and to be scanned into Electronic Medical Record No, Advance Directive brochure given to patient at prior appointment. SPINAL STENOSIS-LUMBAR 09/23/2002 Vitamin D deficiency Cervical spinal stenosis documented as of this encounter (statuses as of 02/09/2023) Resolved Problems Problem Noted Date Diagnosed Date Resolved Date Depression, unspecified 11/09/20212 Depression, unspecified 11/09/202105/2022 Cellulitis of right leg 07/13/202105/2022 Last Assessment & Plan: Suspect this could be early/localized. Will treat with 7 days antibiotic. If pt cannot be reassess by Dr. Braxton office early next week will need [place] provider recheck Multiple and open wound of [...] 11/17/19 23 LUMBAGO 12/24/2002 05/09/2007 LOC PRIM [id number] 12/24/200208/13 DEGENERATIVE SKIN DISORD 12/24/2002 VERTEBRAL FX [...] as of this encounter (statuses as of 02/09/2023) Immunizations Name Administration Dates Next Due COVID-19 [...] as of this encounter Progress Notes * Yeny Moore RN - 02/09/2023 4:37 PM EST Patient and implanted device were evaluated today in the [facility]. Providers please see scanned report in the Scans tab. Yeny Moore RN documented in this encounter Nursing Notes * Nichelle Hayden RN - 01/27/2023 10:15 AM EST Spoke with Greg Mckeon PA-C regarding concern for increase lower extremity swelling and weight gain. Patient with MYLES stockings on in clinic today. Reports increase bilateral lower extremity swelling over past few days. Denies increase sodium intake. Weighing self daily; baseline weight currently around 230lbs; weight today 232lbs. Reports only using furosemide as needed until past Monday when starting taking daily due to swelling. Per Greg Mckeon PA-C: Increase furosemide to 2 (20mg) tablets for next 3 days, then take 1 (20mg) tablet daily thereafter. Patient aware of recommendations at time of device clinic appointment, verbalizing understanding. Aware to call office should increase in medication not aid in improvement of symptoms. * Madai Abrams LPN - 01/27/2023 9:53 AM EST Left sternal device pocket appears to be healing well. Incision is healed and no drainage is noted.No ecchymosis is noted. Area is soft to palpation. Patient and implanted device were evaluated today in the [facility]. Providers please see scanned report in the Scans tab. Patient complains of excessive lower extremity swelling, provider made aware. Tech: Jose Manuel Aguila [employer] documented in this encounter Plan of Treatment Upcoming Encounters Date Type Department Care Team (Late st Contact Info) Description 02/16/2023 6:30 AM EST Anticoagulation Pharmacy Call Center WB [address] [facility] [place] [address] [facility] [address] [facility] [place] [address] 02/16/2023 10:00 AM EST Nurse Only Ancillary [address] [place] [address] [place], Nurse [address] [place] [address] 02/23/2023 3:00 PM EST Office Visit Nephrology [address] [place] [address] [facility]ustin [facility] [address] [facility] [address] 06/06/2023 2:30 PM EDT Office Visit Family Medicine [address] [place] [phone] Jocelyne Desai[address] [place] [address] 06/08/2023 9:00 AM EDT Office Visit Cardiology [address] [place] [address] Greg Mckeon PA-C [address] [place] [address] Scheduled Orders Name Type Priority Associated Diagnoses Orde r Schedule POSTOP F-UP VISIT IN GLOBAL Procedures Routine CHB (complete heart block) (HCC) Chronic atrial fibrillation (HCC) Cardiac pacemaker in situ Ordered: 01/27/2023 Scheduled Procedures Name Priority Associated Diagnoses Date/Ti [...] Additional history exists CKD PHOS USE SMARTSET 80286 11/17/202305/2022, 09/29/2021, 05/12/2021, Additional history exists Diabetic Foot Exam 11/17/2023 11/16/2022, 0 05/05/2021, 11/22/2017, Additional history exists CKD HGB USE SMARTSET 84620 01/18/202401/17, 01/17/2023, 11/16/2022, Additional history exists DTaP,Tdap,and [...] this encounter Medical Devices Implanted Type Area Telecommunication Tower Technician Device Identifier Shelf Expiration Date Model / Serial / Lot Shaft Fibula 6cm [id number] - [id number] [place]planted:Qty: 1 [place]05[place] [facility] [place] - Human N/A: Spine Cervical MUSCULOSKELETAL TRANSPLANT FND 04/20/2010 [id number] / [id number] / Stent Eso Gw 22x70 [id number] - [id number] Implanted:Qty: 1 on 01/21/2008 [place] [facility] N/A: Esophagus [employer] 04/12/2009 [id number] / / [id number] Depuy Uniplate Screw 14mm Implanted:Qty: 2 on 09/05/2008 [place] [facility] N/A: Spine Cervical [employer]PUY 1897-06-017 / / Screw Inner Mntr [id number] - [id number] Implanted:Qty: 8 on 05/07/2010 [place] [facility] N/A: Spine Cervical JNJ : [employer] [id number] / / Envista Intraocular Lens Implanted:Qty: 1 on 03/10/2022 by Liang Marshall MD at OR [facility] Right: Eye BAUSCH [employer] LOMB 08/13/2023 [id number] / [id number] / [id number] Envista Intraocular Lens Implanted:Qty: 1 on 03/24/2022 by Liang Marshall MD at OR [facility] Left: Eye BAUSCH & LOMB 07/13/2024 [id number] / [id number] / [id number] documented as of this encounter Visit Diagnoses Diagnosis CHB (complete heart block) (HCC)- Primary Atrioventricular block, complete Chronic atrial fibrillation (HCC) Atrial fibrillation Cardiac pacemaker in situ documented in this encounter Advance Directives Documents on File Type Date Recorded Patient Activity Assistant Expl anation POLST 01/26/2021 [place] [facility] FOR LIFE-SUSTAINING TREATMENT Latest Code Status on File Code Status Date Activated Date Inactivated Comments No Code 03/24/2022 7:56 AM 03/24/2022 1:57 PM This or wendy reflects the patients wishes and were consensually agreed upon. Question Answer Comments Discussion of Advance Directives occurred with: Patient Does the patient have a Living Will? No Does the patient have Health Care Power of Public Information Coordinator? No Code Status History Code Status Date Activated Date Inactivated Comments No Code 03/10/2022 7:41 AM 03/10/2022 2:02 PM This order reflects the patients wishes and were consensually agreed upon. Question Answer Comments Discussion of Advance Directives occurred with: Patient Does the patient have a Living Will? No Does the patient have Health Care Power of Public Information Coordinator? No Full Code 05/07/2010 8:55 AM 05/11/2010 9:01 PM This order reflects the patients wishes and were consensually agreed upon. Question Answer Comments Discussion of Advance Directives occurred with: Patient Does the patient have a Living Will? No Does the patient have Health Care Power of Public Information Coordinator? No Full Code 05/07/2010 6:07 AM 05/07/2010 [...] the patient have Health Care Power of Public Information Coordinator? No Care Teams Trim Machine Adjuster Relationship Specialty Start Date End Date Jocelyne Desai DO [address] [place] [address] [place] [address] PCP - General Internal Medicine 11/09/16 documented as of this encounter
--- OUTSIDE RECORDS SUMMARY | 2023-06-15 09:09 | External Medical Summary | Summary of Care ---
Author Name Unknown Organization [facility] Address [address] [facility] [address] Phone [phone] Care Team Providers Care Livestock Dealer Name Role Phone DesaiElissaJocelyne Briggs DO Primary Care Provider [phone] Reason for Visit * Reason Comments Dosage Adjustment Via Phone (anticoag Cl inic) Encounter Details Date Type Department Care Team (Latest Contact Info) Description 02/02/2023 6:30 AM EST Anticoagulation Pharmacy Call Center [phone] [place] [address] [facility] [address] [place] [address] Chronic atrial fibrillation (HCC)* Allergies No known active allergiesdocumented as of this encounter (statuses as of 02/02/2023) Medications Medication Sig Dispensed Refills Start Date [...] mg PRN, swelling/weight gain, Reported on 01/10/2023 Warfarin Sodium 3 MG Oral Tablet (Coumadin)Indicati ons:Chronic atrial fibrillation (HCC) TAKE 1 TO 2 TABLETS BY MOUTH DAILY, DIRECTED BY COUMADIN CLINIC 180 Tablet 2 11/09/2021 02/12/2023 Active Atorvastatin Calcium 40 MG Oral Tablet [...] the morning. 100 Tablet 3 11/08/2022 Active documented as of this encounter (statuses as of 02/02/2023) Active Problems Patient Care Coordination No te Formatting of this note migh t be different from the original. Good connectivity [facility] for wound care [phone] Televideo if needed. 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 He has significant history DM and PVD and recommended he still follow up with podiatry,. 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 SPINAL STENOSIS-LUMBAR 09/23/2002 Vitamin D deficiency Cervical spinal stenosis documented as of this encounter (statuses as of 02/02/2023) Resolved Problems Problem Noted Date Diagnosed Date Resolved Date Depression, unspecified 11/09/2021 03/2 Depression, unspecified 11/09/2021 1005/2022 Cellulitis of right leg 07/13/202105/2022 Last Assessment & Plan: Suspect this could be early/localized. Will treat with 7 days antibiotic. If pt cannot be reassess by Dr. Braxton office early next week will need [facility] provider recheck Multiple and open wound of l ower limb, left, subsequent encounter 07/13/2021 11/16/2022 Last Assessment & Plan: Advised to not use tape directly on skin--secure dressings with jose wrap and tape the jose wrap. Continue to cleanse daily with soap and water and apply aqua-jjaa AG, telfa and wrap. Concern for possible [...] 11/17/19 23 LUMBAGO 12/24/2002 05/09/2007 LOC PRIM OCCEDGYA-H-AYS 12/24/200208/13 DEGENERATIVE SKIN DISORD 12/24/2002 VERTEBRAL FX [...] as of this encounter (statuses as of 02/02/2023) Immunizations Name Administration Dates Next Due COVID-19 mRNA, LNP-s, No Pre serve, 2-Dose Series (Moderna) 03/19/2020 COVID-19 mRNA, LNP-s, No Pre serve, 2-Dose Series (Equals6) 02/16/2021,04/09/2020,03/19/2020 COVID-19, MRNA-LNP, 23-24, P F, 30 [...] Notes * Madai Perera PHARM Tech - 02/02/2023 11:53 AM EST Contacts Type Contact Phone/Fax 02/02/2023 11:51 AM EST Phone (Outgoing) Lg Cooley" (Self) [phone] (H) Missing or Invalid Number 02/02/2023 11:52 AM EST Phone (Outgoing) Lg Cooley" (Self) [phone] (M) Spoke to Patient Subjective Patient Findings Negatives: Signs/symptoms of bleeding, Change in health, Change in activity, Upcoming invasive procedure, Missed doses, Extra doses, Change in medications, Change in diet/appetite, Bruising Advised patient to contact Anticoagulation Clinic if any unusual bruising or bleeding, recent illness, changes in medication, or questions/concerns. PT/INR results, Coumadin dose instructions, and next PT/INR date communicated as noted by Pharmacist: AMOS Kinney 02/02/2023, 11:53 AM * Sofie Danielle [facility] - 02/02/2023 9:36 AM EST Lg Cooley (52) Coumadin Clinic (region specific) Objective Current Warfarin Dose As of 02/02/2023 Warfarin maintenance plan: 1.5 mg (3 mg x 0.5) every Mon, Fri; 3 mg (3 mg x 1) all other days INR Result As of 02/02/2023 INR goal: 2.0-3.0 INR used for dosin.9 (02/01/2023) Assessment & Plan Warfarin Plan As of 02/02/2023 Full warfarin instructions: 1.5 mg every Mon, Fri; 3 mg all other days No change documented: Sofie Danielle [facility] Next INR check: 02/15/2023 Repeat PT/INR in 2 week(s) Weekly dose: not changed Additional Dosing Information: Description [facility] Nurses; fax - [phone] (prev [facility]) Pacemaker Gen Change 01/18/23- Dr. Carpenter would like INR 2-2.5 Tech to contact patient with dose instructions as noted. Sofie Danielle RPh 02/02/2023, 9:36 AM * Kajal Ellis, cork cutter - 02/02/2023 7:58 AM EST [facility] nurse Tonia left a voicemail yesterday after hours, the INR from yesterday was 2.9. The agency phone is [phone] or you can fax orders [phone]. Kajal Ellis MA Hoop Maker Machine [facility] ([facility] (formerly Telepharmacy) documented in this encounter Plan of Treatment Upcoming Encounters Date Type Department Care Team (Late st Contact Info) Description 02/16/2023 10:00 AM EST Nurse Only Ancillary [address] [place] [address] [place], Nurse [address] [place] [address] 02/23/2023 3:00 PM EST Office Visit Nephrology [address] [place] [address] Jennifer Agustin MD [address] [place] [address] [place] [address] 06/06/2023 2:30 PM EDT Office Visit Family Medicine [address] [place] [phone] Jocelyne Desai[address] [place] [address] 06/08/2023 9:00 AM EDT Office Visit Cardiology [address] [place] [address] Greg Mckeon PA-C [address] [place] [address] Scheduled Procedures Name Priority Associated Diagnoses Date/Ti [...] Additional history exists CKD PHOS USE SMARTSET 52640 11/17/202305/2022, 09/29/2021, 05/12/2021, Additional history exists Diabetic Foot Exam 11/17/2023 11/16/2022, 0 05/05/2021, 11/22/2017, Additional history exists CKD HGB USE SMARTSET 72312 01/18/202401/17, 01/17/2023, 11/16/2022, Additional history exists DTaP,Tdap,and [...] this encounter Medical Devices Implanted Type Area Refrigeration Insulator Device Identifier Shelf Expiration Date Model / Serial / Lot Shaft Fibula 6cm [id number] - [id number] Implanted:Qty: 1 on 09[place]05/[place] [facility] [place] - Human N/A: Spine Cervical MUSCULOSKELETAL TRANSPLANT FND 04/20/2010 [id number] / [id number] 0P / Stent Eso Gw 22x70 [id number] - [id number] Implanted:Qty: 1 on 01/21/2008 [place] [facility] N/A: Esophagus [employer]US INC 04/12/2009 [id number] / / [id number] Depuy Uniplate Screw 14mm Implanted:Qty: 2 on 09/05/2008 [place] [facility] N/A: Spine Cervical TAMMY [employer] TAMMY DEPUY 1897-06-017 / / Screw Inner Mntr [id number] - [id number] Implanted:Qty: 8 on 05/07/2010 at [facility] N/A: Spine Cervical JNJ : [employer] [id number] / / Envista Intraocular Lens Implanted:Qty: 1 on 03/10/2022 by Liang Marshall MD at OR [facility] Right: Eye BAUSCH & LOMB 08/13/2023 [id number] / [id number] / [id number] Envista Intraocular Lens Implanted:Qty: 1 on 03/24/2022 by Liang Marshall MD at OR [facility] Left: Eye BAUSCH & LOMB 07/13/2024 [id number] / [id number] / [id number] documented as of this encounter Procedures Procedure Name Priority Date/Time Associated Diagnosis Comments OUTSIDE LAB-PT/INR Routine 02/01/2023 documented in this encounter Results * OUTSIDE LAB-PT/INR (02/01/2023) INR-OUTSIDE LAB 2.9 History Per Patient LABORATORY documented in this encounter Visit Diagnoses Diagnosis Chronic atrial fibrillation (HCC)- Primary Atrial fibrillation documented in this encounter Advance Directives Documents on File Type Date Recorded Patient Remedial Reading Teacher Expl anation POLST 01/26/2021 [place] [...] patient have Health Care Power of Head Of Measurement & Insights? No Code Status History Code Status Date Activated Date Inactivated Comments No Code 03/10/2022 7:41 AM 03/10/2022 2:02 PM This order reflects the patients wishes and were consensually agreed upon. Question Answer Comments Discussion of Advance Directives occurred with: Patient Does the patient have a Living Will? No Does the patient have Health Care Power of Head Of Measurement & Insights? No Full Code 05/07/2010 8:55 AM 05/11/2010 9:01 PM This order reflects the patients wishes and were consensually agreed upon. Question Answer Comments Discussion of Advance Directives occurred with: Patient Does the patient have a Living Will? No Does the patient have Health Care Power of Head Of Measurement & Insights? No Full Code 05/07/2010 6:07 AM 05/07/2010 [...] patient have Health Care Power of Head Of Measurement & Insights? No Care Teams Livestock Dealer Relationship Specialty Start Date End Date Jocelyne Desai DO [address] [place] [address] [place] [phone] PCP - General Internal Medicine 11/09/16 documented as of this encounter
--- OUTSIDE RECORDS SUMMARY | 2023-06-15 09:09 | External Medical Summary | Summary of Care ---
Author Name Unknown Organization [facility] Address [address] [facility] [place] [address] Phone [phone] Care Team Providers Care Matchbook Assembler Name Role Phone Silvia Armas DO Primary Care Provider Reason for Visit * Reason Comments Medication Refill Encounter Details Date Type Department Care Team (Late st Contact Info) Description 02/04/2023 Refill Pharmacy Call Center [phone] [facility] [place] [address] Silvia Armas DO [address] [place] [address] [place] [address] Chronic atrial fibrillation (HCC) Allergies No known active allergiesdocumented as of this encounter (statuses as of 02/04/2023) Medications Medication Sig Dispensed Refills Start Date [...] CLINIC 180 Tablet 3 02/04/2023 4 Active Warfarin Sodium 3 MG Oral Tablet (Coumadin)Indicat ions:Chronic atrial fibrillation (HCC) TAKE 1 TO 2 TABLETS BY MOUTH DAILY, DIRECTED BY COUMADIN CLINIC 180 Tablet 2 11/09/2021 3 Discontinue d(Refill) documented as of this encounter (statuses as of 02/04/2023) Active Problems Patient Care Coordination No te Formatting of this note migh t be different from the original. Good connectivity [facility] for wound care [phone] Televideo if needed. Problem Noted Date Diagnosed [...] up with podiatry,. Letter in chart from [facility] podiatry they were unable to get [...] ICD-10 update of inactive term PLATT RESEARCH OTHER*[id number] 02/20/2007 ADVANCE DIRECTIVE INFORMATION 01/19/2005 Overview: Yes, Patient instructed to provide copy of advance directive for provider to review and to be scanned into Electronic Medical Record No, Advance Directive brochure given to patient at prior appointment. SPINAL STENOSIS-LUMBAR 09/23/2002 Vitamin D deficiency Cervical spinal stenosis documented as of this encounter (statuses as of 02/04/2023) Resolved Problems Problem Noted Date Diagnosed Date Resolved Date Depression, unspecified 11/09/2021 03/2 Depression, unspecified 11/09/202105/2022 Cellulitis of right leg 07/13/202105/2022 Last Assessment & Plan: Suspect this could be early/localized. Will treat with 7 days antibiotic. If pt cannot be reassess by Dr. Braxton office early next week will need [facility] provider recheck Multiple and open [...] 11/17/19 23 LUMBAGO 12/24/2002 05/09/2007 LOC PRIM [id number] 12/24/200208/13 DEGENERATIVE SKIN DISORD 12/24/2002 VERTEBRAL FX [...] as of this encounter (statuses as of 02/04/2023) Immunizations Name Administration Dates Next Due COVID-19 mRNA, LNP-s, No Pre serve, 2-Dose Series (Moderna) 03/19/2020 COVID-19 mRNA, LNP-s, No Pre serve, 2-Dose Series (Pfizer) 02/16/2021,04/09/2020,03/19/2020 COVID-19, MRNA-LNP, 23-24, P F, 30 MCG/0.3 mL, 12 YRS AND ABOVE, IM ([employer]) 11/16/2022 Covid-19, Mrna, Lnp-s, Pf, B ivalent, [...] encounter Miscellaneous Notes * Telephone Encounter - Savita Hendrix RP - 02/04/2023 11:10 PM EST Signed Prescriptions: Disp Refills Warfarin Sodium 3 MG Oral Tablet (Coumadin)180 Ta*3 Sig: TAKE 1 TO 2 TABLETS BY MOUTH DAILY, DIRECTED BY COUMADIN CLINICAuthorizing Provider: SILVIA ARMAS User: SAVITA HENDRIX documented in this encounter Plan of Treatment Upcoming Encounters Date Type Department Care Team (Late st Contact Info) Description 02/16/2023 6:30 AM EST [phone] [address] [facility] 58 60 [facility] [place] [address] 02/16/2023 10:00 AM EST Nurse Only Ancillary [address] [place] [address] [place], Nurse [address] [place] [address] 02/23/2023 3:00 PM EST Office Visit Nephrology [address] [place] [address] Jennifer Agustin MD [address] [place] [address] 06/06/2023 2:30 PM EDT Office Visit Family Medicine [address] [place] [phone] Silvia Armas, [address] [place] [address] 06/08/2023 9:00 AM EDT Office Visit Cardiology [address] [place] [address] Greg Mckeon PA-C [address] [place] [address] Scheduled Procedures Name Priority Associated Diagnoses Date/Ti [...] Additional history exists CKD PHOS USE SMARTSET 40494 11/17/202305/2022, 09/29/2021, 05/12/2021, Additional history exists Diabetic Foot Exam 11/17/2023 11/16/2022, 0 05/05/2021, 11/22/2017, Additional history exists CKD HGB USE SMARTSET 97178 01/18/202401/17, 01/17/2023, 11/16/2022, Additional history exists DTaP,Tdap,and [...] encounter Medical Devices Implanted Type Area Financial Wellness Coach Device Identifier Shelf Expiration Date Model / Serial / Lot Shaft Fibula 6cm [id number] - [id number] Implanted:Qty: 1 on 09/05/2008 at OR [facility] Tissue - Human N/A: Spine Cervical MUSCULOSKELETAL TRANSPLANT FND 04/20/2010 [id number] / [id number] 0P / Stent Eso Gw 22x70 [id number] - [id number] Implanted:Qty: 1 on 01/21/2008 at OR [facility] N/A: Esophagus [employer] 04/12/2009 [id number] / / [id number] Depuy Uniplate Screw 14mm Implanted:Qty: 2 on 09/05/2008 at OR [facility] N/A: Spine Cervical [employer] 1897-06-017 / / Screw Inner Mntr [id number] - [id number] Implanted:Qty: 8 on 05/07/2010 at OR [facility] N/A: Spine Cervical JNJ : [employer] [id number] / / [id number] Intraocular Lens Implanted:Qty: 1 on 03/10/2022 by Liang Marshall MD at OR [facility] Right: Eye BAUSCH & LOMB 08/13/2023 [id number] / [id number] / [id number] Envista Intraocular Lens Implanted:Qty: 1 on 03/24/2022 by Liang Marshall MD at OR [facility] Left: Eye BAUSCH & LOMB 07/13/2024 [id number] / [id number] / [id number] documented as of this encounter Visit Diagnoses Diagnosis Chronic atrial fibrillation (HCC) Atrial fibrillation documented in this encounter Advance Directives Documents on File Type Date Recorded Patient Teacher Ballet Expl anation POLST 01/26/2021 [place] OR DERS [...] the patient have Health Care Power of Business Analytics Director? No Code Status History Code Status Date Activated Date Inactivated Comments No Code 03/10/2022 7:41 AM 03/10/2022 2:02 PM This order reflects the patients wishes and were consensually agreed upon. Question Answer Comments Discussion of Advance Directives occurred with: Patient Does the patient have a Living Will? No Does the patient have Health Care Power of Business Analytics Director? No Full Code 05/07/2010 8:55 AM 05/11/2010 9:01 PM This order reflects the patients wishes and were consensually agreed upon. Question Answer Comments Discussion of Advance Directives occurred with: Patient Does the patient have a Living Will? No Does the patient have Health Care Power of Business Analytics Director? No Full Code 05/07/2010 6:07 AM 05/07/2010 [...] the patient have Health Care Power of Business Analytics Director? No Care Teams Matchbook Assembler Relationship Specialty Start Date End Date Silvia Armas DO [address] [place] [address] [place] [phone] PCP - General Internal Medicine 11/09/16 documented as of this encounter
--- OUTSIDE RECORDS SUMMARY | 2023-06-15 09:10 | External Medical Summary | Summary of Care ---
Author Name Unknown Organization [facility] Address [address] [facility] [address] Phone [phone] Care Team Providers Care Insurance Case Manager Name Role Phone DesaiElissaJocelyne Briggs DO Primary Care Provider + [phone] Reason for Visit * Reason Comments Dosage Adjustment Via Phone (anticoag Cl inic) Encounter Details Date Type Department Care Team (Latest Contact Info) Description 01/26/2023 6:30 AM EST Anticoagulation Pharmacy Call Center [address] [place] [address] [facility] 58 60 [place] [address] Chronic atrial fibrillation (HCC)* Allergies No known active allergiesdocumented as of this encounter (statuses as of 01/26/2023) Medications Medication Sig Dispensed Refills Start Date [...] as of this encounter (statuses as of 01/26/2023) Active Problems Patient Care Coordination No te Formatting of this note migh t be different from the original. Good connectivity [facility] for wound care [phone] Televideo if needed. Problem Noted Date Diagnosed [...] up with podiatry,. Letter in chart from [facility] podiatry they were unable to [...] 11/27/2018 H/O gastric bypass 11/27/2018 Overview: RYGB blockmason current use of 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 1 Status [...] ICD-10 update of inactive term PLATT RESEARCH OTHER*[id number] 02/20/2007 ADVANCE DIRECTIVE INFORMATION 01/19/2005 Overview: Yes, Patient instructed to provide copy of advance directive for provider to review and to be scanned into Electronic Medical Record No, Advance Directive brochure given to patient at prior appointment. SPINAL STENOSIS-LUMBAR 09/23/2002 Vitamin D deficiency Cervical spinal stenosis documented as of this encounter (statuses as of 01/26/2023) Resolved Problems Problem Noted Date Diagnosed Date Resolved Date Depression, unspecified 11/09/2021 03/2 Depression, unspecified 11/09/2021 1005/2022 Cellulitis of right leg 07/13/202105/2022 Last Assessment & Plan: Suspect this could be early/localized. Will treat with 7 days antibiotic. If pt cannot be reassess by Dr. Braxton office early next week will need [facility] provider recheck Multiple and open [...] 11/17/19 23 LUMBAGO 12/24/2002 05/09/2007 LOC PRIM [id number] 12/24/200208/13 DEGENERATIVE SKIN DISORD 12/24/2002 VERTEBRAL FX [...] as of this encounter (statuses as of 01/26/2023) Immunizations Name Administration Dates Next Due COVID-19 mRNA, LNP-s, No Pre serve, 2-Dose Series (Moderna) 03/19/2020 COVID-19 mRNA, LNP-s, No Pre serve, 2-Dose Series ([facility]) 02/16/2021,04/09/2020,03/19/2020 COVID-19, MRNA-LNP, 23-24, P F, 30 [...] as of this encounter Progress Notes * Andrea Whitmore CPhT - 01/26/2023 9:59 AM EST Contacts Type Contact Phone/Fax 01/26/2023 09:56 AM EST Phone (Outgoing) Lg Cooley" (Self) [phone] (H) No Answer/Busy - # no longer in service 01/26/2023 09:57 AM EST Phone (Outgoing) Lg Cooley" (Self) [phone] (M) Spoke to Patient Subjective Patient Findings Negatives: Signs/symptoms of thrombosis, [...] date communicated as noted by Pharmacist: Yes Andrea Whitmore CPhT 01/26/2023, 9:59 AM * Sofie Danielle [facility] - 01/26/2023 8:40 AM EST Lg Cooley (52) Coumadin Clinic (region specific) Objective Current Warfarin Dose As of 01/26/2023 Warfarin maintenance plan: 1.5 mg (3 mg x 0.5) every Fri; 3 mg (3 mg x 1) all other days INR Result As of 01/26/2023 INR goal: 2.0-3.0 INR used for dosin.0 (01/25/2023) Assessment & Plan Warfarin Plan As of 01/26/2023 Full warfarin instructions: 1.5 mg every Mon, Fri; 3 mg all other days Next INR check: 02/01/2023 Repeat PT/INR in 1 week(s) Weekly dose: decreased to more closely represent dosing from previous weeks Additional Dosing Information: Description [facility] Nurses; fax - [phone] (prev [facility]) Pacemaker Gen Change 01/18/23- Dr. Carpenter would like INR 2-2.5 Tech to contact patient with dose instructions as noted. Sofie Danielle [facility] 01/26/2023, 8:40 AM * Christy Ko PHARM Tech - 01/25/2023 1:38 PM EST Caller's name: marcelo Taylor call back number(OFFICE NUMBER FOR ): [phone] Reason for call: nursing facility, [facility], calling with INR results. Result is 3.0 which was drawn on 01.25.23. Patient is not being discharged. Thank you, Christy Ko Surveyor Helper [facility] ([facility]) (Formerly Telepharmacy) 01/25/2023,1:38 PM documented in this encounter Plan of Treatment Upcoming Encounters Date Type Department Care Team (Late st Contact Info) Description 01/27/2023 9:15 AM EST Cardiac Studies Cardiology, [facility] [address] [facility] [place] [address] [place], Pacer Clinic [facility] 132 [facility] [place] [address] 02/02/2023 6:30 AM EST Anticoagulation Pharmacy Call Center 58[address] [facility] [place] [address] [facility] 58 60 [facility] [place] [address] 02/16/2023 10:00 AM EST Nurse Only Ancillary [address] [place] [address] [place], Nurse [address] [place] [address] 02/23/2023 3:00 PM EST Office Visit Nephrology [address] [place] [address] Jennifer Agustin MD [address] [facility] [place] [address] 06/06/2023 2:30 PM EDT Office Visit Family Medicine [address] [place] [phone] Jocelyne De[address] [place] [address] 06/08/2023 9:00 AM EDT Office Visit Cardiology [address] [place] [address] Greg Mckeon PA-C [address] [place] [address] Scheduled Procedures Name Priority Associated Diagnoses Date/Ti me COLONOSCOPY FLEXIBLE PROXIMA L DIAGNOSTIC Recall Screening for colon cancer Health Maintenance Due Date Last Done Comments Cologuard 1997 Sigmoidoscopy 1997 Fecal Occult Blood Test 09/02/2009 09/02/2008, 05/04 Diabetic Eye Exam 12/30/2022 12/30/2021, , 12/28/2021, Additional history exists Depression Screening 02/09/2023 02/09/2022 HbA1c 05/18/2023 11/16/2022, 04/15, 11/09/2021, Additional history exists GFR 07/19/2023 01/17/2023, 10/0 05/2022, 04/13/2022, Additional history exists Albumin/Creatinine Ratio 11/17/2023 023, 05/13/2022, 09/29/2021, Additional history exists CKD PHOS USE SMARTSET 23226 11/17/2023 10/0 05/2022, 09/29/2021, 05/12/2021, Additional history exists Diabetic Foot Exam 11/17/2023 11/16/2022, 0 05/05/2021, 11/22/2017, Additional history exists CKD HGB USE SMARTSET 58983 01/18/202401/17, 01/17/2023, 11/16/2022, Additional history exists DTaP,Tdap,and [...] this encounter Medical Devices Implanted Type Area Perfect Binder Operator Device Identifier Shelf Expiration Date Model / Serial / Lot Shaft Fibula 6cm [id number] - [id number] Implanted:Qty: 1 on 09/05/[place] [facility] Tissue - Human N/A: Spine Cervical MUSCULOSKELETAL TRANSPLANT FND 04/20/2010 [id number] / [id number] 0P / Stent Eso Gw 22x70 [id number] - [id number] Implanted:Qty: 1 on 01/21/2008 [place] [facility] N/A: Esophagus [employer] 04/12/2009 [id number] / / [id number] Depuy Uniplate Screw 14mm Implanted:Qty: 2 on 09/05/2008 at [place] [facility] N/A: Spine Cervical TAM[employer] TAM[employer] 1897-06-017 / / Screw Inner Mntr [id number] - [id number] Implanted:Qty: 8 on 05/07/2010 at [place] [facility] N/A: Spine Cervical JNJ : [employer] [id number] / / Envista Intraocular Lens Implanted:Qty: 1 on 03/10/2022 by Liang Marshall MD at OR [facility] Right: Eye BAUSCH & LOMB 08/13/2023 [id number] / [id number] / [id number] Envista Intraocular Lens Implanted:Qty: 1 on 03/24/2022 by Liang Marshall MD at OR [facility] Left: Eye BAUSCH & LOMB 07/13/2024 [id number] / [id number] / [id number] documented as of this encounter Procedures Procedure Name Priority Date/Time Associated Diagnosis Comments OUTSIDE LAB-PT/INR Routine 01/25/2023 documented in this encounter Results * OUTSIDE LAB-PT/INR (01/25/2023) INR-OUTSIDE LAB 3.0 01/25/2023 History Per Patient LABORATORY documented in this encounter Visit Diagnoses Diagnosis Chronic atrial fibrillation (HCC)- Primary Atrial fibrillation documented in this encounter Advance Directives Documents on File Type Date Recorded Patient Pan Devulcanizer Expl anation POLST 01/26/2021 [place] OR DERS FOR LIFE-SUSTAINING TREATMENT Latest Code Status on File Code Status Date Activated Date Inactivated Comments No Code 03/24/2022 7:56 AM 03/24/2022 1:57 PM This or wendy reflects the patients wishes and were consensually agreed upon. Question Answer Comments Discussion of Advance Directives occurred with: Patient Does the patient have a Living Will? No Does the patient have Health Care Power of Painter Ordnance? No Code Status History Code Status Date Activated Date Inactivated Comments No Code 03/10/2022 7:41 AM 03/10/2022 2:02 PM This order reflects the patients wishes and were consensually agreed upon. Question Answer Comments Discussion of Advance Directives occurred with: Patient Does the patient have a Living Will? No Does the patient have Health Care Power of Painter Ordnance? No Full Code 05/07/2010 8:55 AM 05/11/2010 9:01 PM This order reflects the patients wishes and were consensually agreed upon. Question Answer Comments Discussion of Advance Directives occurred with: Patient Does the patient have a Living Will? No Does the patient have Health Care Power of Painter Ordnance? No Full Code 05/07/2010 6:07 AM 05/07/2010 [...] the patient have Health Care Power of Painter Ordnance? No Care Teams Insurance Case Manager Relationship Specialty Start Date End Date Jocelyne Desai DO [address] [place] [address] [place] [address] PCP - General Internal Medicine 11/09/16 documented as of this encounter
--- OUTSIDE RECORDS SUMMARY | 2023-06-15 09:11 | External Medical Summary | Summary of Care ---
Author Name Unknown Organization [facility] Address [address] [facility] [address] Phone [phone] Care Team Providers Care Electrical Engineering Director Name Role Phone Jocelyne Desai Primary Care Provider [phone] Reason for Visit * Reason Onset Date Comments Advice 01/20/2023 Encounter Details Date Type Department Care Team (Late st Contact Info) Description 01/20/2023 Telephone Cardiology, [facility] [address] [facility] [place] [address] Acacia Carpenter DO [address] [facility] [place] [address] Advice Allergies No known active allergiesdocumented as of this encounter (statuses as of 01/20/2023) Medications Medication Sig Dispensed Refills Start Date [...] as of this encounter (statuses as of 01/20/2023) Active Problems Patient Care Coordination No te Formatting of this note migh t be different from the original. Good connectivity [facility] for wound care [phone] Televideo if needed. Problem Noted Date Diagnosed [...] up with podiatry,. Letter in chart from [facility] podiatry they were unable to get in [...] H/O gastric bypass 11/27/2018 Overview: [facility] senior living current use of 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 1 Status [...] ICD-10 update of inactive term PLATT RESEARCH OTHER*[id number] 02/20/2007 ADVANCE DIRECTIVE INFORMATION 01/19/2005 Overview: Yes, Patient instructed to provide copy of advance directive for provider to review and to be scanned into Electronic Medical Record No, Advance Directive brochure given to patient at prior appointment. SPINAL STENOSIS-LUMBAR 09/23/2002 Vitamin D deficiency Cervical spinal stenosis documented as of this encounter (statuses as of 01/20/2023) Resolved Problems Problem Noted Date Diagnosed Date Resolved Date Depression, unspecified 11/09/2021 03/2 Depression, unspecified 11/09/2021 1005/2022 Cellulitis of right leg 07/13/202105/2022 Last Assessment & Plan: Suspect this could be early/localized. Will treat with 7 days antibiotic. If pt cannot be reassess by Dr. Braxton office early next week will need [facility] provider recheck Multiple and open [...] 11/17/19 23 LUMBAGO 12/24/2002 05/09/2007 LOC PRIM [id number] 12/24/200208/13 DEGENERATIVE SKIN DISORD 12/24/2002 VERTEBRAL FX [...] as of this encounter (statuses as of 01/20/2023) Immunizations Name Administration Dates Next Due COVID-19 mRNA, LNP-s, No Pre serve, 2-Dose Series (Moderna) 03/19/2020 COVID-19 mRNA, LNP-s, No Pre serve, 2-Dose Series (Apprats) 02/16/2021,04/09/2020,03/19/2020 COVID-19, MRNA-LNP, 23-24, P F, 30 MCG/0.3 mL, 12 YRS AND ABOVE, IM (PFIZER-Comirnaty) 11/16/2022 Covid-19, Mrna, Lnp-s, Pf, B ivalent, 30 Mcg, IM, 12 yrs and above (Pfizer) 11/16/2021 Diptheria/Tetanus (Adult) 12/01/2018 Hepatitis B, 20+ yrs 11/11/2002,06/10/2002,05/13 Pneumococcal Conjugate Vacc, 13 Valent (Prevnar) 11/01/2017 Pneumococcal Polysaccharide PPV23 (Pneumovax) 11/27/2018,09/28/2005 SEASONAL INFLUENZA, PF, 6 M & Above, IM , (FLULAVAL or FLUZONE) 11/01/2017,11/22/2016 11/22/2017 Season Influenza, Quad, PF, Adjuvanted, 65+ Yrs, IM (FLUAD) 10/22/2019 Seasonal Influenza, Quadriva lent Hd (Fluzone Hd) [...] encounter Miscellaneous Notes * Telephone Encounter - Opal Daily OSA - 01/20/2023 1:17 PM EST Is this a [employer] or [employer]? * Telephone Encounter - Zahra Morillo LPN - 01/20/2023 11:59 AM EST Tonia calling from [facility]. She stated that Patient had pacemaker placement on 01/18/2023 at [facility], she stated that paperwork sayhe is to have a follow up appt in 1 week but no follow up appointment scheduled. Please reach out to schedule appointment. documented in this encounter Plan of Treatment Upcoming Encounters Date Type Department Care Team (Late st Contact Info) Description 01/24/2023 2:40 PM EST Laboratory Laboratory, [facility] [address] [facility] [place] [address] [facility] [address] 01/25/2023 6:15 AM EST Anticoagulation Pharmacy Call Center [address] [facility] [place] [address] [facility] 58 60 [facility] [place] [address] 02/14/2023 1:30 PM EST Nurse Only Ancillary [address] [place] [address] [place], Nurse [address] [place] [address] 02/23/2023 3:00 PM EST Office Visit Nephrology [address] [place] [address] Jennifer Agustin MD [address] [place] [address] 06/06/2023 2:30 PM EDT Office Visit Family Medicine [address] [place] [address] Joc[address]ne [address] [place] [address] 06/08/2023 9:00 AM EDT Office Visit Cardiology [address] [place] [address] Greg Mckeon PACinthiaC [address] [place] [address] Scheduled Procedures Name Priority Associated Diagnoses Date/Ti [...] Additional history exists CKD PHOS USE SMARTSET 11446 11/17/202305/2022, 09/29/2021, 05/12/2021, Additional history exists Diabetic Foot Exam 11/17/2023 11/16/2022, 0 05/05/2021, 11/22/2017, Additional history exists CKD HGB USE SMARTSET 05493 01/18/202401/17, 01/17/2023, 11/16/2022, Additional history exists DTaP,Tdap,and [...] this encounter Medical Devices Implanted Type Area Cradle Slide Maker Device Identifier Shelf Expiration Date Model / Serial / Lot Shaft Fibula 6cm [id number] - [id number] Implanted:Qty: 1 on 09/05/2008 at [place] [facility] Tissue - Human N/A: Spine Cervical MUSCULOSKELETAL TRANSPLANT FND 04/20/2010 [id number] / [id number] / Stent Eso Gw 22x70 [id number] - [id number] Implanted:Qty: 1 on 01/21/2008 at [place] [facility] N/A: Esophagus [employer] 04/12/2009 [id number] / / [id number] Depuy Uniplate Screw 14mm Implanted:Qty: 2 on 09/05/2008 at [place] [facility] N/A: Spine Cervical [employer] TAM[employer] DEPUY 1897-06-017 / / Screw Inner Mntr [id number] - [id number] Implanted:Qty: 8 on 05/07/2010 at [place] [facility] N/A: Spine Cervical JNJ : [employer] [id number] / / Envista Intraocular Lens Implanted:Qty: 1 on 03/10/2022 by Liang Marshall MD at OR [facility] Right: Eye BAUSCH & LOMB 08/13/2023 [id number] / [id number] / [id number] Envista Intraocular Lens Implanted:Qty: 1 on 03/24/2022 by Liang Marshall MD at OR [facility] Left: Eye BAUSCH & LOMB 07/13/2024 [id number] / [id number] / [id number] documented as of this encounter Advance Directives Documents on File Type Date Recorded Patient Leather Colorer Expl anation POLST 01/26/2021 [place] DERS [...] the patient have Health Care Power of Rag Cutting Machine Tender? No Code Status History Code Status Date Activated Date Inactivated Comments No Code 03/10/2022 7:41 AM 03/10/2022 2:02 PM This order reflects the patients wishes and were consensually agreed upon. Question Answer Comments Discussion of Advance Directives occurred with: Patient Does the patient have a Living Will? No Does the patient have Health Care Power of Rag Cutting Machine Tender? No Full Code 05/07/2010 8:55 AM 05/11/2010 9:01 PM This order reflects the patients wishes and were consensually agreed upon. Question Answer Comments Discussion of Advance Directives occurred with: Patient Does the patient have a Living Will? No Does the patient have Health Care Power of Rag Cutting Machine Tender? No Full Code 05/07/2010 6:07 AM 05/07/2010 [...] the patient have Health Care Power of Rag Cutting Machine Tender? No Care Teams Electrical Engineering Director Relationship Specialty Start Date End Date Jocelyne Desai DO [address] [place] [address] [place] [id number] PCP - General Internal Medicine 11/09/16 documented as of this encounter
--- OUTSIDE RECORDS SUMMARY | 2023-06-15 09:11 | External Medical Summary | Summary of Care ---
Author Name Unknown Organization [facility] Address [address] [facility] [place] [address] Phone [phone] Care Team Providers Care Derrick Builder Name Role Phone Jocelyne Desai DO Primary Care Provider [phone] Reason for Visit * Reason Onset Date Comments Order Request 01/25/2023 Encounter Details Date Type Department Care Team ([facility] st Contact Info) Description 01/25/2023 Telephone Pharmacy Call Center [address] [place] [address] [facility] 58 60 [place] [address] Order Request Allergies No known active allergiesdocumented as of this encounter (statuses as of 01/25/2023) Medications Medication Sig Dispensed Refills Start Date [...] as of this encounter (statuses as of 01/25/2023) Active Problems Patient Care Coordination No te Formatting of this note migh t be different from the original. Good connectivity [facility] for wound care [phone] Televideo if needed. 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 He has significant history DM and PVD and recommended he still follow up with podiatry,. 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 SPINAL STENOSIS-LUMBAR 09/23/2002 Vitamin D deficiency Cervical spinal stenosis documented as of this encounter (statuses as of 01/25/2023) Resolved Problems Problem Noted Date Diagnosed Date Resolved Date Depression, unspecified 11/09/2021 03/2 Depression, unspecified 11/09/2021 10/0 05/2022 Cellulitis of right leg 07/13/202105/2022 Last Assessment & Plan: Suspect this could be early/localized. Will treat with 7 days antibiotic. If pt cannot be reassess by Dr. Braxton office early next week will need [facility] provider recheck Multiple and open wound [...] 11/17/19 23 LUMBAGO 12/24/2002 05/09/2007 LOC PRIM [id number]-[id number] 12/24/200208/13 DEGENERATIVE SKIN DISORD 12/24/2002 VERTEBRAL FX [...] as of this encounter (statuses as of 01/25/2023) Immunizations Name Administration Dates Next Due COVID-19 [...] Notes * Telephone Encounter - Sofie Danielle [facility] - 01/25/2023 10:38 AM EST Medication Therapy Disease Management - Anticoagulation Patient: Lg Cooley | : 1950 Subjective Contacts Type Contact Phone/Fax 01/25/2023 09:48 AM EST Phone (Incoming) Lg Cooley "Rich" (Self) [phone] (H) Patient-Reported Symptoms: Objective Current Warfarin Dose As of 01/25/2023 Warfarin maintenance plan: 1.5 mg (3 mg x 0.5) every Fri; 3 mg (3 mg x 1) all other days INR Result As of 01/25/2023 INR goal: 2.0-3.0 INR used for dosing: Assessment & Plan Warfarin Plan As of 01/25/2023 Full warfarin instructions: 1.5 mg every Fri; 3 mg all other days No change documented: Sofie Danielle [facility] Next INR check: 01/27/2023 Repeat PT/INR in 2 day(s) Weekly dose: not changed Additional Dosing Information: Description [facility]; fax - [phone] ([facility]) Pacemaker Gen Change 01/18/23- Dr. Carpenter would like INR 2-2.5 Sofie Danielle [facility] Clinical Pharmacist 01/25/2023, 10:38 AM * Telephone Encounter - Tara Yi OSA - 01/25/2023 9:48 AM EST Caller's name: Akshat Vazquez call back number(OFFICE NUMBER FOR ): [phone] Reason for call: Pt calling to see if the [facility] can send INR orders to [facility] they will be there today and Monday01/27/23. Please advise. Thank you, Tara Yi Staple [facility] 01/25/2023,9:48 AM documented in this encounter Plan of Treatment Upcoming Encounters Date Type Department Care Team (Late st Contact Info) Description 01/30/2023 6:30 AM EST Anticoagulation Pharmacy Call Center [address] [facility] [place] [address] [facility] 58 60 [facility] [place] [address] 02/14/2023 1:30 PM EST Nurse Only Ancillary [address] [place] [address] [place], Nurse [address] [place] [address] 02/23/2023 3:00 PM EST Office Visit Nephrology [address] [place] [address] Jennifer [facility]ustin [facility] [address] 06/06/2023 2:30 PM EDT Office Visit Family Medicine [address] [place] [phone] Jocelyne Desai[address] [place] [address] 06/08/2023 9:00 AM EDT Office Visit Cardiology [address] [place] [address] Greg Mckeon PA-C [address] [place] [address] Scheduled Procedures Name Priority Associated Diagnoses Date/Ti [...] Additional history exists CKD PHOS USE SMARTSET 78757 11/17/202305/2022, 09/29/2021, 05/12/2021, Additional history exists Diabetic Foot Exam 11/17/2023 11/16/2022, 0 05/05/2021, 11/22/2017, Additional history exists CKD HGB USE SMARTSET 32465 01/18/202401/17, 01/17/2023, 11/16/2022, Additional history exists DTaP,Tdap,and [...] this encounter Medical Devices Implanted Type Area Documentum Consultant Device Identifier Shelf Expiration Date Model / Serial / Lot Shaft Fibula 6cm [id number] - [id number] Implanted:Qty: 1 on 09/05/2008 at [place] [facility] Tissue - Human N/A: Spine Cervical MUSCULOSKELETAL TRANSPLANT FND 04/20/2010 [id number] / [id number] / Stent Eso Gw 22x70 [id number] - [id number] Implanted:Qty: 1 on 01/21/2008 at OR [facility] N/A: Esophagus AL[employer]OLUS INC 04/12/2009 [id number] / / [id number] Depuy Uniplate Screw 14mm Implanted:Qty: 2 on 09/05/2008 at OR [facility] N/A: Spine Cervical TAMMY & TAMMY DEPUY 1897-06-017 / / Screw Inner Mntr [id number] - [id number] Implanted:Qty: 8 on 05/07/2010 at OR [facility] N/A: Spine Cervical JNJ : [employer] [id number] / / [id number] Intraocular Lens Implanted:Qty: 1 on 03/10/2022 by Liang Marshall MD at OR [facility] Right: Eye BAUSCH & LOMB 08/13/2023 [id number] / [id number] / [id number] Envista Intraocular Lens Implanted:Qty: 1 on 03/24/2022 by Liang Marshall MD at OR [facility] Left: Eye BAUSCH & LOMB 07/13/2024 [id number] / [id number] / [id number] documented as of this encounter Visit Diagnoses Diagnosis Chronic atrial fibrillation (HCC)- Primary Atrial fibrillation documented in this encounter Advance Directives Documents on File Type Date Recorded Patient Statement Clerk Expl anation POLST 01/26/2021 [place] DERS [...] the patient have Health Care Power of Valve Setter? No Code Status History Code Status Date Activated Date Inactivated Comments No Code 03/10/2022 7:41 AM 03/10/2022 2:02 PM This order reflects the patients wishes and were consensually agreed upon. Question Answer Comments Discussion of Advance Directives occurred with: Patient Does the patient have a Living Will? No Does the patient have Health Care Power of Valve Setter? No Full Code 05/07/2010 8:55 AM 05/11/2010 9:01 PM This order reflects the patients wishes and were consensually agreed upon. Question Answer Comments Discussion of Advance Directives occurred with: Patient Does the patient have a Living Will? No Does the patient have Health Care Power of Valve Setter? No Full Code 05/07/2010 6:07 AM 05/07/2010 [...] the patient have Health Care Power of Valve Setter? No Care Teams Derrick Builder Relationship Specialty Start Date End Date Jocelyne Desai DO [address] [place] [address] [place] [address] PCP - General Internal Medicine 11/09/16 documented as of this encounter
--- NOTE | 2023-06-15 11:32 | Nephrology Consultation ---
Date of Consultation June 15, 2023 Assessment & Plan (1) Acute kidney injury superimposed on chronic kidney disease: 72/M patient of Dr Jennifer Agustin. Proteinuric CKD 3 from DM, HTN--last creat 1.7 as of . 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 Creat 3.16 yesterday and today is higher at 3.43 despite 2 liters of NS. Blood and urine C/s pending. urine sediment is active and more consistent with ATN. His BP was also low yesterday but not now. with his extensive cardiovascular problems--PVD, Diabetic Kidney dz, heart issues renal prognosis is not good. As of now creat is still rising so not totally out of danger as far as need of dialysis. will know more in the coming days. for now no major electrolyte issues. No need of more iv fluid today. Do need to r/o Obstruction--renal US. avoid nephrotoxic agents. Hold losartan, Lasix, NSAIDS, contrast agents. I and O charting. Daily CBC and renal panel. (2) Cellulitis of leg, right: History of Present Illness Reason for Consultation: JORGE on background CKD Attending Physician: Paul Dela Cruz MD History of Present Illness 72/M patient of Dr Jennifer Agustin. Proteinuric CKD 3 from DM, HTN--last creat 1.7 as . 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 Presented yesterday because of Severe Rt LE swelling. Persistent and worsening R leg swelling. He has a persistent history of lower extremity cellulitis with toe amputations. He was seen by his home health nurse on Monday for dressing changes of a right toe ulcer (he is not taking any antibiotics at this time for that). Also has h/o ischemic left MCA stroke [place] [facility] AF ( On Coumadin), DM2, H/O CVA, HLD, CKD, tachy-geronimo syndrome s/p PM, depression, and HLD. had Duplex and neg for DVT. got Zosyn, vanco and Dapto yesterday but seems now on Zosyn and Dapto. Creat 3.16 yesterday and today is higher at 3.43 despite 2 liters of NS. Blood and urine C/s pending. urine sediment is active Allergies Allergy/AdvReac Type Severity Reaction Status Date / Time No Known Allergies Allergy Verified 05/12/22 11:02 Home Medications Medication Instructions Recorded Confirmed Type pediatric ieucahvk-[id number] 1 tab PO PM ##0 04/11/13 06/14/23 History (Flintstones Complete (iron) chewable tablet) atorvastatin 40 mg tablet 40 mg PO PM #0 tabs 01/08/17 06/14/23 History cholecalciferol (vitamin D3) 25 2,000 unit PO PM 10/18/17 06/14/23 History mcg (1,000 unit) capsule (Vitamin D3) cyanocobalamin (vitamin B-12) 1,000 mcg PO PM 05/06/19 06/14/23 History 1,000 mcg tablet furosemide 20 mg tablet 20 mg PO DAILY PRN swelling 05/06/19 06/14/23 History tamsulosin 0.4 mg capsule 0.4 mg PO PM 05/06/19 06/14/23 History magnesium oxide 400 mg PO DAILY 09/26/19 06/14/23 History triamcinolone acetonide 0.1 % 1 applic topical BID PRN Rash 08/11/20 06/14/23 History topical cream acetaminophen 500 mg tablet 1,000 mg PO Q6H PRN Pain 12/17/20 06/14/23 History aspirin 81 mg tablet 81 mg PO DAILY 12/21/20 06/14/23 History warfarin 3 mg tablet 3 mg PO SUTUWETHFRSA@1600 10/07/22 06/14/23 History warfarin 3 mg tablet 6 mg PO MO@1600 10/07/22 06/14/23 History cyclobenzaprine 10 mg tablet 10 mg PO Q8H PRN muscle spasm #15 10/16/22 06/14/23 Rx tabs metoprolol succinate 25 mg 25 mg PO QAM #30 tabs 10/16/22 06/14/23 Rx tablet,extended release 24 hr losartan 50 mg tablet 50 mg PO DAILY 01/18/23 06/14/23 History semaglutide 0.25 mg or 0.5 mg (2 0.25 mg subcut WK 01/18/23 06/14/23 History mg/1.5 mL) subcutaneous pen injector senna-docusate sodium tablet 1 tab PO DAILY 01/18/23 06/14/23 History Patient History Medical History Hyperlipemia Essential hypertension 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 kidney disease Degenerative cervical spinal stenosis Degenerative lumbar spinal stenosis Proliferative diabetic retinopathy Venous insufficiency of both lower extremities Erectile dysfunction Nonalcoholic 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 (PLATT) 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 Hyperparathyroidism, secondary renal Esophageal obstruction Complex sleep apnea syndrome Vitamin B12 deficiency Persistent proteinuria Morbid obesity Paroxysmal SVT (supraventricular tachycardia) Myocardial Infarction 2017 > medically managed Diabetic peripheral neuropathy associated with type 2 diabetes mellitus Diabetes type 2, controlled NIDDM Peripheral arterial disease 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, EVELINE TPT/proximal EDUCATION REPORTER 10/2019, Right great toe amputation 07/2020 with revision 08/2020 Chronic anemia CVA (cerebral vascular accident) 01/2018; residual right sided weakness Mixed sleep apnea No device (previous BIPAP) CKD (chronic kidney disease), stage III Dyslipidemia Tachy-geronimo syndrome CHF (congestive heart failure) Acute renal failure superimposed on stage 3 chronic kidney disease 08/2020 hospitalization, UTI and osteomyelitis, necrotizing fasciitis Depression Pacemaker Left, normal single chamber pacemaker function with stable pacing and sensing thresholds per pacer check 12/08/20 [facility] Hypertension Sepsis 2013 Atrial fibrillation Surgical History History of amputation of lesser toe of right foot Hx of angioplasty Amputation toe Right great toe amputation (08/12/20): MAC at [facility] History of esophagogastroduodenoscopy (EGD) History of vascular surgery Left popliteal, EVELINE TPT/proximal EDUCATION REPORTER (10/2019) Right great toe I&D, revision amputation (08/21/20): MAC at [facility] History of hand surgery Tendon transfer Gastric bypass status for obesity Family History Brother Diabetes Mother Diabetes Father Diabetes Other Cancer Hypertension Social History Smoking Status: Never smoker Tobacco Type: Cigarettes Second Hand Exposure: No; Do You Dip or Chew Tobacco: No; Hx Alcohol Use: No Hx Substance Use: No Preferred Language: Kyrgyz 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 Ability: Effective Visual Impairment: No Limitations Hearing Ability: Normal Internet Application Developer Required: No Beliefs That Will Affect Care: None marital status: Current Living Situation: Alone Current Living Situation Comment: Daughter lives upstairs. current occupational status: retired How many Children do You have: 2 Feels Safe at Home: Yes Diet Comment: Educated to increase protein, vitamin c, d and zinc Assistive Devices: Cane, Denture - Upper and Glasses Results & Data Vital Signs (Past 12 Hours) Vital Signs Temp Pulse Pulse Resp BP BP Pulse Ox 06/15/23 08:43 60 06/15/23 08:29 06/15/23 08:01 36.7 C 61 18 101/61 95 06/15/23 04:56 36.3 C L 61 18 101/59 L 97 06/15/23 02:48 37.5 C 59 L 18 88/53 L 93 O2 Del Method 06/15/23 08:43 06/15/23 08:29 Room Air 06/15/23 08:01 Room Air 06/15/23 04:56 Room Air 06/15/23 02:48 Room Air Laboratory Results Reviewed
--- NOTE | 2023-06-15 12:01 | Infectious Disease Consult ---
Date of Service June 15, 2023 Telehealth Information I performed this visit using a real-time telehealth connection between my location and the patients location ([facility]). 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 My office door was closed and no one else was present in the room with me.Patient (or authorized healthcare termite control service representative) provided consent to proceed with the visit, expressed an understanding of privacy and security of the telemedicine visit, and gave permission to have a hospital termite control service representative in the room in order to assist with the visit and to conduct portions of the visit, as needed. I informed the patient (or authorized healthcare termite control service representative) that I reviewed their record and presented the opportunity for them to ask any questions regarding the visit today. The patient agreed to participate. Assessment & Plan (1) Cellulitis of leg, right: Plan 72-year-old male with a past medical history of type 2 diabetes mellitus, peripheral vascular disease, prior right toe amputations presenting for worsening right foot ulcer concerns for cellulitis. Patient with a culture history significant for right lower extremity MRSA/Pseudomonas (lozoya-S). Currently on Zosyn and daptomycin. RLE cellulites, history of MRSA and PsA soft tissue infection Peripheral Vascular Disease Plan: -Contine Daptomycin -Change Zosyn to Cefepime 1g IV q12 (CrCl 25.6) and flagyl 500mg po tid in setting of significant JORGE -Recommend CT RLE without contrast to assess for potential abscess -ID will continue to follow Slick Dunn MD Infectious Disease PGY-4 [facility] I interacted directly with the patient and I agree with the assessment and plan History of Present Illness History of Present Illness 72-year-old male with a past medical history of type 2 diabetes mellitus, PVD, AFib on warfarin, dyslipidemia, pacemaker placement for tachy-geronimo syndrome, CVA, prior right lower extremity 1st toe amputation ( 2020), right and left lower extremity cellulitis with MRSA /Pseudomonas /strep species presents to the hospital for worsening ulcer on the right foot. Home Wound Care nurse noting worsening of ulcer on the right foot and asked the patient come to the hospital for further evaluation. In the ED patient was blood pressure 96/57 T 36.8 pulse 60 RR 18 98% on room air, WBC initially 13.51 ( trended down to 11.9 currently), serum creatinine noted to be elevated at 3.16 ( currently 3.43 - nephrology consulted). CXR showing placement pacemaker and no consolidation/ effusion, Dopplers of lower extremities without evidence of DVT. 06/13 blood culture with no growth to date, urine culture pending. Infectious Disease asked for input with regards to lower extremity cellulitis in setting of prior MRSA / Pseudomonas Right foot infection. Pt states that since admission the swelling of his RLE has improved as well as the posterior calf pain, although he feels it is still weeping onto the bedsheets. He still denies any systemic symptoms of fever/chills, n/v/d, abdominal pain, confusion, SEXTON/changes in vision. He has chronic neuropathy but states his foot feels at baseline and all his symptoms are located above the ankle and distal to the knee. Denies any R. knee joint involvement. Allergies Allergy/AdvReac Type Severity Reaction Status Date / Time No Known Allergies Allergy Verified 05/12/22 11:02 Home Medications Medication Instructions Recorded Confirmed Type pediatric [id number] 1 tab PO PM ##0 04/11/13 06/14/23 History (Flintstones Complete (iron) chewable tablet) atorvastatin 40 mg tablet 40 mg PO PM #0 tabs 01/08/17 06/14/23 History cholecalciferol (vitamin D3) 25 2,000 unit PO PM 10/18/17 06/14/23 History mcg (1,000 unit) capsule (Vitamin D3) cyanocobalamin (vitamin B-12) 1,000 mcg PO PM 05/06/19 06/14/23 History 1,000 mcg tablet furosemide 20 mg tablet 20 mg PO DAILY PRN swelling 05/06/19 06/14/23 History tamsulosin 0.4 mg capsule 0.4 mg PO PM 05/06/19 06/14/23 History magnesium oxide 400 mg PO DAILY 09/26/19 06/14/23 History triamcinolone acetonide 0.1 % 1 applic topical BID PRN Rash 08/11/20 06/14/23 History topical cream acetaminophen 500 mg tablet 1,000 mg PO Q6H PRN Pain 12/17/20 06/14/23 History aspirin 81 mg tablet 81 mg PO DAILY 12/21/20 06/14/23 History warfarin 3 mg tablet 3 mg PO SUTUWETHFRSA@1600 10/07/22 06/14/23 History warfarin 3 mg tablet 6 mg PO MO@1600 10/07/22 06/14/23 History cyclobenzaprine 10 mg tablet 10 mg PO Q8H PRN muscle spasm #15 10/16/22 06/14/23 Rx tabs metoprolol succinate 25 mg 25 mg PO QAM #30 tabs 10/16/22 06/14/23 Rx tablet,extended release 24 hr losartan 50 mg tablet 50 mg PO DAILY 01/18/23 06/14/23 History semaglutide 0.25 mg or 0.5 mg (2 0.25 mg subcut WK 01/18/23 06/14/23 History mg/1.5 mL) subcutaneous pen injector senna-docusate sodium tablet 1 tab PO DAILY 01/18/23 06/14/23 History Patient History Medical History Hyperlipemia Essential hypertension 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 kidney disease Degenerative cervical spinal stenosis Degenerative lumbar spinal stenosis Proliferative diabetic retinopathy Venous insufficiency of both lower extremities Erectile dysfunction Nonalcoholic 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 (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 Hyperparathyroidism, secondary renal Esophageal obstruction Complex sleep apnea syndrome Vitamin B12 deficiency Persistent proteinuria Morbid obesity Paroxysmal SVT (supraventricular tachycardia) Myocardial Infarction 2017 > medically managed Diabetic peripheral neuropathy associated with type 2 diabetes mellitus Diabetes type 2, controlled NIDDM Peripheral arterial disease 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, EVELINE TPT/proximal BILLING COORDINATOR 10/2019, Right great toe amputation 07/2020 with revision 08/2020 Chronic anemia CVA (cerebral vascular accident) 01/2018; residual right sided weakness Mixed sleep apnea No device (previous BIPAP) CKD (chronic kidney disease), stage III Dyslipidemia Tachy-geronimo syndrome CHF (congestive heart failure) Acute renal failure superimposed on stage 3 chronic kidney disease 08/2020 hospitalization, UTI and osteomyelitis, necrotizing fasciitis Depression Pacemaker Left, normal single chamber pacemaker function with stable pacing and sensing thresholds per pacer check 12/08/20 [facility] Hypertension Sepsis 2014 Atrial fibrillation Surgical History History of amputation of lesser toe of right foot Hx of angioplasty Amputation toe Right great toe amputation (08/12/20): MAC at [facility] History of esophagogastroduodenoscopy (EGD) History of vascular surgery Left popliteal, EVELINE TPT/proximal BILLING COORDINATOR (10/2019) Right great toe I&D, revision amputation (08/21/20): MAC at [facility] History of hand surgery Tendon transfer Gastric bypass status for obesity Family History Brother Diabetes Mother Diabetes Father Diabetes Other Cancer Hypertension Social History Smoking Status: Never smoker Tobacco Type: Cigarettes Second Hand Exposure: No; Do You Dip or Chew Tobacco: No; Hx Alcohol Use: No Hx Substance Use: No Preferred Language: Salvadorean 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 Ability: Effective Visual Impairment: No Limitations Hearing Ability: Normal Pulmonary Nurse Practitioner Required: No Beliefs That Will Affect Care: None marital status: Current Living Situation: Alone Current Living Situation Comment: Daughter lives upstairs. current occupational status: retired How many Children do You have: 2 Feels Safe at Home: Yes Diet Comment: Educated to increase protein, vitamin c, d and zinc Assistive Devices: BiPap, Cane, Hospital Bed, Lift Chair and Walker Review of Systems Constitutional: No weight loss/gain, fatigue, fever, loss of appetite Eyes: No pain, drainage, vision change HENT: No ear pain/drainage, sinus infections, hearing loss Cardiovascular: No chest pain, palpitations, lower extremity swelling Respiratory: No shortness of breath, wheezing, cough, sputum production Gastrointestinal: No abdominal pain, nausea/vomiting, indigestion/heartburn Skin: circumferential erythema of the right calf with clear weeping, swelling improved Neurological: No dizziness, weakness, confusion, sensory changes Physical Exam No physical exam telemedicine visit Results & Data Vital Signs (Past 12 Hours) Vital Signs Temp Pulse Pulse Resp BP BP Pulse Ox 06/15/23 11:44 36.9 C 62 18 91/56 L 95 06/15/23 08:43 60 06/15/23 08:29 06/15/23 08:01 36.7 C 61 18 101/61 95 06/15/23 04:56 36.3 C L 61 18 101/59 L 97 06/15/23 02:48 37.5 C 59 L 18 88/53 L 93 O2 Del Method 06/15/23 11:44 Room Air 06/15/23 08:43 06/15/23 08:29 Room Air 06/15/23 08:01 Room Air 06/15/23 04:56 Room Air 06/15/23 02:48 Room Air Laboratory Results Laboratory Results WBC 11.90 K/ul (4.8-10.8) H 06/15/23 05:44 RBC 3.11 M/uL (4.70-6.10) L 06/15/23 05:44 Hgb 9.2 g/dl (14.0-18.0) L 06/15/23 05:44 Hct 27.7 % (42.0-52.0) L 06/15/23 05:44 MCV 89.1 fL (80.0-100.0) 06/15/23 05:44 MCH 29.6 pg (25.0-34.0) 06/15/23 05:44 MCHC 33.2 g/dL (32.0-36.0) 06/15/23 05:44 RDW Std Deviation 46.9 fL (36.4-46.3) H 06/15/23 05:44 RDW Coeff of Jason 14.6 % (11.5-14.5) H 06/15/23 05:44 Plt Count 81 K/uL (130-400) L 06/15/23 05:44 MPV 12.6 fL (9.4-12.4) H 06/15/23 05:44 Immature Gran % (Auto) 0.8 % 06/14/23 08:57 Neut % (Auto) 93.6 % 06/14/23 08:57 Lymph % (Auto) 2.1 % 06/14/23 08:57 Schley % (Auto) 3.4 % 06/14/23 08:57 Eos % (Auto) 0.0 % 06/14/23 08:57 Baso % (Auto) 0.1 % 06/14/23 08:57 Neut # (Auto) 12.65 K/uL (1.40-6.50) H 06/14/23 08:57 Lymph # (Auto) 0.28 K/uL (1.20-3.40) L 06/14/23 08:57 Schley # (Auto) 0.46 K/uL (0.11-0.59) 06/14/23 08:57 Eos # (Auto) 0.00 K/uL (0.00-0.50) 06/14/23 08:57 Baso # (Auto) 0.01 K/uL (0.00-0.20) 06/14/23 08:57 Immature Gran # (Auto) 0.11 K/uL (0.01-0.20) 06/14/23 08:57 Toxic Granulation 1+ 06/14/23 08:57 Dohle Bodies 1+ 06/14/23 08:57 Polychromasia 1+ 06/14/23 08:57 Echinocytes 1+ 06/14/23 08:57 Acanthocytes (Spur) 2+ 06/14/23 08:57 PT 35.6 Seconds (9.0-12.0) H 06/15/23 08:29 INR 3.7 (0.9-1.1) H 06/15/23 08:29 APTT 47 Seconds (21-31) H 06/14/23 08:57 PTT Ratio 1.7 06/14/23 08:57 VBG pH 7.33 (7.36-7.41) L 06/14/23 09:20 VBG pCO2 35 mmHg (38-50) L 06/14/23 09:20 VBG pO2 24 mmHg 06/14/23 09:20 VBG HCO3 19 mmol/L 06/14/23 09:20 VBG O2 Saturation < 60.0 % 06/14/23 09:20 VBG Base Excess -6.6 mEq/L 06/14/23 09:20 Sodium 135 mmol/L (136-145) L 06/15/23 05:44 Potassium 3.9 mmol/L (3.5-5.1) 06/15/23 05:44 Chloride 108 mmol/L (98-107) H 06/15/23 05:44 Carbon Dioxide 19 mmol/L (21-32) L 06/15/23 05:44 Anion Gap 8 (3-11) 06/15/23 05:44 BUN 64 mg/dl (6-23) H 06/15/23 05:44 Creatinine 3.43 mg/dl (0.6-1.4) H D 06/15/23 05:44 Est Cr Clr Drug Dosing 25.6 ml/min 06/15/23 05:44 Est GFR ( Amer) 19.8 ml/min 06/15/23 05:44 Est GFR (Non-Af Amer) 17.1 ml/min 06/15/23 05:44 BUN/Creatinine Ratio 18.7 (10-20) 06/15/23 05:44 Glucose 115 mg/dl (70-99(Fasting)) H 06/15/23 05:44 Estimat Average Glucose 126 mg/dl 06/15/23 05:44 Hemoglobin A1c 6.0 % (4.5-5.6) H 06/15/23 05:44 Lactate 1.9 mmol/L (0.4-2.0) 06/14/23 08:59 Calcium 7.5 mg/dl (8.6-10.3) L 06/15/23 05:44 Phosphorus 4.1 mg/dl (2.5-4.9) 06/15/23 05:44 Magnesium 1.7 mg/dl (1.7-2.4) 06/15/23 05:44 Total Bilirubin 1.1 mg/dl (0.2-1.0) H 06/15/23 05:44 Direct Bilirubin 0.6 mg/dl (0-0.2) H 06/14/23 08:57 AST 67 U/L (13-39) H 06/15/23 05:44 ALT 51 U/L (7-52) 06/15/23 05:44 Alkaline Phosphatase 45 U/L (34-104) 06/15/23 05:44 Troponin I High Sens 19.1 pg/ml (0-20) D 06/14/23 Unknown Total Protein 5.3 gm/dl (6.0-8.3) L 06/15/23 05:44 Albumin 2.8 gm/dl (3.4-5.0) L 06/15/23 05:44 Globulin 2.5 gm/dl (2.5-4.0) 06/15/23 05:44 Albumin/Globulin Ratio 1.1 (0.9-2) 06/15/23 05:44 Procalcitonin 9.33 ng/ml (0-0.5) H 06/15/23 05:44 Urine Color Dark Yellow 06/14/23 12:08 Urine Appearance Turbid (Clear) A 06/14/23 12:08 Urine pH 5.5 (4.5-7.5) 06/14/23 12:08 Ur Specific [place] 1.017 (1.000-1.030) 06/14/23 12:08 Urine Protein 2+ (Negative) H 06/14/23 12:08 Urine Glucose (UA) Negative (Negative) 06/14/23 12:08 Urine Ketones Trace (Negative) H 06/14/23 12:08 Urine Blood 2+ (Negative) H 06/14/23 12:08 Urine Nitrite Negative (Negative) 06/14/23 12:08 Urine Bilirubin Negative (Negative) 06/14/23 12:08 Urine Urobilinogen Negative (Negative) 06/14/23 12:08 Ur Leukocyte Esterase 2+ (Negative) H 06/14/23 12:08 Urine WBC (Auto) 21-50 /hpf (0-5) H 06/14/23 12:08 Urine RBC (Auto) 0-2 /hpf (0-2) 06/14/23 12:08 U Hyaline Cast (Auto) 6-10 /lpf (0-2) H 06/14/23 12:08 U Epithel Cells (Auto) 3-5 /hpf (0-2) H 06/14/23 12:08 Urine Bacteria (Auto) 1+ (None Seen) H 06/14/23 12:08 Granular Casts Present /lpf (None Prsent) A 06/14/23 12:08 Urine Mucus Present (None Prsent) A 06/14/23 12:08 Nasal Screen MRSA (PCR) Positive (Negative) A 06/14/23 11:40 SARS-CoV-2 (PCR) NEGATIVE (Negative) 06/14/23 Unknown Influenza Type A (PCR) Negative (Neg) 06/14/23 Unknown Influenza Type B (PCR) Negative (Neg) 06/14/23 Unknown RSV (RT-PCR) Negative (Neg) 06/14/23 Unknown Impressions Chest X-Ray 06/14/23 08:52 SINGLE VIEW CHEST CLINICAL HISTORY: Sepsis. FINDINGS: An AP, portable, upright chest radiograph is compared to study dated 10/10/2022. A single lead cardiac pacemaker is unchanged in position. The heart is enlarged noting atherosclerotic calcification of the thoracic aorta. The pulmonary vasculature is noncongested. Chronic interstitial thickening is similar to previous. There is bibasilar scarring/atelectasis. The lungs and pleural spaces are otherwise clear. No pneumothorax is seen. The skeletal structures are osteopenic. The bony thorax is grossly intact. Fusion hardware is noted in the cervical spine. IMPRESSION: 1. Cardiomegaly and cardiac pacemaker without radiographic evidence of congestive failure. 2. No airspace consolidation or pleural effusion is identified. ACT 112: Negative or not required by law. Electronically signed by: River Castillo M.D. 06/14/2023 9:13 AM Venous Doppler Study 06/14/23 08:52 RIGHT LOWER EXTREMITY VENOUS DOPPLER HISTORY: Right leg swelling COMPARISON STUDY: None. FINDINGS: There is normal compressibility, flow, and augmentation within the right lower extremity deep venous system. A few enlarged right inguinal lymph no yahaira. Dominant lymph node measures 42 x 27 x 14 mm. Subcutaneous trace edema seen within the right lower extremity. IMPRESSION: 1. No DVT within the right lower extremity. 2. Right inguinal lymphadenopathy. This could be reactive. ACT 112: Negative or not required by law. Electronically signed by: Josafat Hein M.D. 06/14/2023 10:06 AM Diagnostic Findings Microbiology 06/14/23 09:30 Blood Aerobic Blood Culture - Preliminary No growth in Aerobic bottle after 24 hours. 06/14/23 09:30 Blood Anaerobic Blood Culture - Preliminary No growth in Anaerobic bottle after 24 hours. 06/14/23 09:20 Blood Aerobic Blood Culture - Preliminary No growth in Aerobic bottle after 24 hours. 06/14/23 09:20 Blood Anaerobic Blood Culture - Preliminary No growth in Anaerobic bottle after 24 hours.
--- NOTE | 2023-06-15 14:47 | Ultrasound Report ---
RENAL ULTRASOUND HISTORY: JORGE on CKD COMPARISON: Renal ultrasound 07/20/2006. FINDINGS: Right kidney: 11.9 cm. Trace perinephric fluid. No hydronephrosis. Mild cortical thinning. Normal cor ticomedullary differentiation. A 1 cm lower pole cyst. Left kidney: 12.2 cm. No hydronephrosis. Mild cortical thinning. Normal corticomedullary differentiat ion. A 9 mm exophytic cyst. Trace perinephric fluid. Bladder: No bladder wall thickening. Only the right ureteral jet was identified this time. Cholelithiasis. IMPRESSION: 1. No hydronephrosis. 2. Mild cortical thinning which is likely age-related. 3. Trace perinephric fluid. This may be chronic. 4. Normal bladder. 5. Cholelithiasis. ACT 112: Negative or not required by law. Electronically signed by: Josafat Hein M.D. 06/15/2023 2:46 PM
--- NOTE | 2023-06-15 16:13 | Hospitalist Progress Note ---
Date of Service June 15, 2023 Assessment & Plan (1) Cellulitis of leg, right: (2) Hx MRSA infection: (3) Diabetic ulcer of right foot: (4) Diabetes type 2, controlled: (5) Atrial fibrillation: (6) Peripheral arterial disease: (7) Hypertension: (8) CVA (cerebral vascular accident): (9) Dyslipidemia: (10) Pacemaker: (11) Tachy-geronimo syndrome: (12) Acute kidney injury superimposed on chronic kidney disease: Plan per admitting service notes with addendum: 72 year old male with RLE cellulitis with IV abx including Dapto + Vanco given patient MRSA history and taking into consideration worsening kidney function, Infectious Disease input, WOCN consult, PT/OT and possible imaging to r/o osteo if no improvement. Will also monitor kidney function and seek consult from Nephrology. Will continue IV fluids for now and recheck BMP later this afternoon. Hold Nephrotoxic agents and replace Mg+. PT/OT pending any rehab placement needs. # Cellulitis: Non-healing ulcers: Acute Leukocytosis 13.51 Procalcitonin 10.4, lactate normal Blood cultures and UA obtained in ED Troponin 31.1; suspect ischemic demand rather than ACS Started on Zosyn plus Vanco in ED; Will adjust to Zosyn + Dapto for now given history of MRSA and keeping in mind nephrotoxicity Recheck MRSA screen Doppler US negative for DVT WOCN placed ID consult placed Consider CT RLE given history of Osteomyelitis when creatinine resolves; hold on imaging for now PT/OT for possible rehab needs 06/14 blood cultures: pending ID consulted, awaiting final recommendations currently on Dapto + Zosyn UTI Urine culture: Staph species, Gram positive cocci abx per above #: JORGE on CKD Acute Serum creatinine 3.16; baseline 1.4-1.7 crea trending up, 3.4 today Nephro consulted #: Hypomagnesemia: Acute resolved #: HFrEF: Chronic Last ECHO 09/2022; normal LV wall motion, mildly concentric. EF 55-59%, mild MR, mild pHTN Takes Lasix 20 mg PRN based on weight; no recent weight fluctuations Took Lasix 40 mg PO on Monday. CXR negative for acute cardiopulmonary disease and no signs of pulmonary congestion Lungs CTA on exam 06/14 (+) gr 2 lower ext edema will obtain Echo # Atrial Fibrillation: Chronic Takes Coumadin; continue INR 2.5 Takes Metoprolol; continue 5/2 INR 3.7 continue coumadin #: HTN: Chronic takes Losartan; hold for now given JORGE; reassess # CAD: S/P Pacemaker: Chronic Pacer exchange a few weeks ago Follows with Dr. Carpenter with Cardiology monitor in Telemetry #: NIDDM Diabetes: Chronic Last A1C 6.5 on 11/2022. Will recheck in AM. On Ozempic; hold while inpt Recheck A1C: 6.0 # HLD: Chronic takes Atorvastatin;hold for now while on Dapto d/t increased r/o rhabdo # BPH: Chronic. Takes Tamsulosin; continue Disposition: PCP: Dr. Jocelyne Desai COde status: Full VTE Prophylaxis: INR > 3, coumadin held Admission and Anticipated Discharge Date Admission Date: June 14, 2023 Subjective ff up for R leg cellulitis, etc seen resting in chair, comfortable not in distress states he feels improved compared to yesterday has some R LE discomfort no fever/chills no chest pain, dyspnea, palpitations, dizziness no other new symptoms Review of Systems Review of Systems: all noted and negative except for above Physical Exam Physical Exam: General- oriented x 3, not in distress, speaks in sentences with no effort or accessory muscle use Eyes- anicteric Neck- no JVD Lungs- clear breath sounds bilaterally, no rales/wheezes Heart- normal rate, regular rhythm; no murmurs Abdomen- normal bowel sounds, nondistended, soft, nontender Extremities- Gr 2 bilateral lower ext edema, no erythema/warmth/tenderness Neuro- alert, oriented x 3; no gross focal neurologic deficits Skin- warm & dry Results & Data Results & Data Vital Signs (Past 12 Hours) Vital Signs Temp Pulse Pulse Resp BP BP Pulse Ox 06/15/23 15:53 36.3 C L 61 17 81/37 L 97 06/15/23 11:44 36.9 C 62 18 91/56 L 95 06/15/23 08:43 60 06/15/23 08:29 06/15/23 08:01 36.7 C 61 18 101/61 95 06/15/23 04:56 36.3 C L 61 18 101/59 L 97 O2 Del Method 06/15/23 15:53 Room Air 06/15/23 11:44 Room Air 05/02/24 08:43 06/15/23 08:29 Room Air 06/15/23 08:01 Room Air 06/15/23 04:56 Room Air all noted and reviewed including below (3) Diabetic ulcer of right foot Diabetes mellitus type: other specified (including ROSELINE) Diabetic foot ulcer location: unspecified part of foot Non-pressure ulcer stage: unspecified non- pressure ulcer stage Qualified Code(s): E13.621 - Other specified diabetes mellitus with foot ulcer; L97.519 - Non-pressure chronic ulcer of other part of right foot with unspecified severity
[2023-06-16 08:01] LABS: INR 4.9 (0.9-1.1); Prothrombin Time 46.6 Seconds (9.0-12.0)
[2023-06-16 08:03] LABS: Basophils # (auto) 0.01 K/uL (0.00-0.20); Basophils % (auto) 0.1 %; Eosinophils # (auto) 0.07 K/uL (0.00-0.50); Eosinophils % (auto) 0.7 %; Hematocrit (blood only) 28.6 % (42.0-52.0); Hemoglobin 9.3 g/dl (14.0-18.0); Immature Granulocytes # (auto) 0.15 K/uL (0.01-0.20); Immature Granulocytes % (auto) 1.4 %; Lymphocytes # (auto) 0.46 K/uL (1.20-3.40); Lymphocytes % (auto) 4.4 %; Mean Corpuscular Hemoglobin 29.2 pg (25.0-34.0); Mean Corpuscular Hgb Conc 32.5 g/dL (32.0-36.0); Mean Corpuscular Volume 89.9 fL (80.0-100.0); Mean Platelet Volume 12.5 fL (9.4-12.4); Monocytes # (auto) 0.42 K/uL (0.11-0.59); Neutrophils # (auto) 9.46 K/uL (1.40-6.50); Neutrophils % (auto) 89.4 %; Platelet Count 92 K/uL (130-400); RDW Coefficient of Variation 14.6 % (11.5-14.5); RDW Standard Deviation 48.3 fL (36.4-46.3); Red Blood Count 3.18 M/uL (4.70-6.10); White Blood Count 10.57 K/ul (4.8-10.8)
[2023-06-16 08:18] LABS: BUN Creatinine Ratio 17.3 (10-20); Calcium 7.6 mg/dl (8.6-10.3); Creatinine Clr Calc Pharmacy 21.8 ml/min; Est GFR (African American) 15.7 ml/min; Est GFR (Non-African American) 13.6 ml/min; Potassium 3.6 mmol/L (3.5-5.1)
--- NOTE | 2023-06-16 10:15 | Nephrology Progress Note ---
Date of Service June 16, 2023 Assessment & Plan Admission and Anticipated Discharge Date Admission Date: June 14, 2023 Subjective Assessment & Plan (1) Acute kidney injury superimposed on chronic kidney disease: 72/M patient of Dr Jennifer Agustin. Proteinuric CKD 3 from DM, HTN--last creat 1.7 as of . 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 Creat 3.16 yesterday and today is higher at 4+ despite 2 liters of NS. MRSA In urine. urine sediment is active and more consistent with ATN but given issues with Infection cannot really tell. Rise of creat pattern is more consistent with ATN picture. we have few more days ( over the weekend) to see if ATN peaks. NO dialysis today. His BP not low now. with his extensive cardiovascular problems--PVD, Diabetic Kidney dz, heart issues renal prognosis is not good. As of now creat is still rising so not out of danger as far as need of dialysis. will know more in the coming days. for now no major electrolyte issues. has lot of edema but no SOB and CXR is fine. NO iv fluid and no Diuretics renal US---done and no Hydronephrosis avoid nephrotoxic agents. Hold losartan, Lasix, NSAIDS, contrast agents. I and O charting. Daily CBC and renal panel. (2) Cellulitis of leg, right: 72-year-old male with a past medical history of type 2 diabetes mellitus, peripheral vascular disease, prior right toe amputations presenting for worsening right foot ulcer concerns for cellulitis. Patient with a culture history significant for right lower extremity MRSA/Pseudomonas (lozoya-S). Currently on Zosyn and daptomycin. ID note reviewed and changed to cefepime and Zosyn stopped. has MRSA in urine also. S--No new issues. Feels fine. No SOB. Lot of edema. Physical Exam Constitutional: cooperative and comfortable Neck: normal visual inspection Respiratory: normal respiratory effort Musculoskeletal: Extremities: severe RT LE edema and U[place], nasty loking wound skin breakdown. even left has edema but lot less Skin: + ulcer (Right foot full thickness ulcer with graft dressing intact by steristrips) and + erythema (Right leg) Neurologic: moves all extremities Motor/Sensory: + sensory deficit Psychiatric: Orientation: alert and oriented x 3 Results & Data Vital Signs (Past 12 Hours) Vital Signs Temp Pulse Pulse Resp BP Pulse Ox O2 Del Method 06/16/23 08:58 Room Air 06/16/23 08:57 62 06/16/23 07:19 36.3 C L 63 18 83/55 L 98 Room Air 06/16/23 03:08 37.0 C 59 L 20 92/54 L 95 Room Air 06/16/23 00:16 60 06/15/23 22:19 36.7 C 59 L 20 97/59 L 96 Room Air
--- NOTE | 2023-06-16 19:01 | Hospitalist Progress Note ---
Date of Service June 16, 2023 Assessment & Plan (1) Cellulitis of leg, right: Plan: (1) Cellulitis of leg, right: (2) Hx MRSA infection: (3) Diabetic ulcer of right foot: (4) Diabetes type 2, controlled: (5) Atrial fibrillation: (6) Peripheral arterial disease: (7) Hypertension: (8) CVA (cerebral vascular accident): (9) Dyslipidemia: (10) Pacemaker: (11) Tachy-geronimo syndrome: (12) Acute kidney injury superimposed on chronic kidney disease: Plan per admitting service notes with addendum: 72 year old male with RLE cellulitis with IV abx including Dapto + Vanco given patient MRSA history and taking into consideration worsening kidney function, Infectious Disease input, WOCN consult, PT/OT and possible imaging to r/o osteo if no improvement. Will also monitor kidney function and seek consult from Nephrology. Will continue IV fluids for now and recheck BMP later this afternoon. Hold Nephrotoxic agents and replace Mg+. PT/OT pending any rehab placement needs. # Cellulitis: Non-healing ulcers: Acute Leukocytosis 13.51 Procalcitonin 10.4, lactate normal Blood cultures and UA obtained in ED Troponin 31.1; suspect ischemic demand rather than ACS Started on Zosyn plus Vanco in ED; Will adjust to Zosyn + Dapto for now given history of MRSA and keeping in mind nephrotoxicity Recheck MRSA screen Doppler US negative for DVT WOCN placed ID consult placed Consider CT RLE given history of Osteomyelitis when creatinine resolves; hold on imaging for now PT/OT for possible rehab needs 5/2 blood cultures: pending ID consulted, awaiting final recommendations currently on Dapto + Zosyn 5/[address] lower extremity, foot ordered Continue daptomycin plus Zosyn UTI Urine culture: Staph species, Gram positive cocci abx per above #: JORGE on CKD Acute Serum creatinine 3.16; baseline 1.4-1.7 crea trending up, 3.4 today Nephro consulted Creatinine trending up, currently 4.1 Nephrology service following Continue to monitor closely #: Hypomagnesemia: Acute resolved #: HFrEF: Chronic Last ECHO 09/2022; normal LV wall motion, mildly concentric. EF 55-59%, mild MR, mild pHTN Takes Lasix 20 mg PRN based on weight; no recent weight fluctuations Took Lasix 40 mg PO on Monday. CXR negative for acute cardiopulmonary disease and no signs of pulmonary congestion Lungs CTA on exam 06/15 (+) gr 2 lower ext edema will obtain Echo # Atrial Fibrillation: Chronic Takes Coumadin; continue INR 2.5 Takes Metoprolol; continue 06/15 INR 4.9 Hold Coumadin Hold aspirin Check INR daily #: HTN: Chronic takes Losartan; hold for now given JORGE # CAD: S/P Pacemaker: Chronic Pacer exchange a few weeks ago Follows with Dr. Carpenter with Cardiology monitor in Telemetry #: NIDDM Diabetes: Chronic Last A1C 6.5 on 11/2022. Will recheck in AM. On Ozempic; hold while inpt Recheck A1C: 6.0 # HLD: Chronic takes Atorvastatin;hold for now while on Dapto d/t increased r/o rhabdo # BPH: Chronic. Takes Tamsulosin; continue Disposition: PCP: Dr. Jocelyne Desai COde status: Full VTE Prophylaxis: INR > 3, coumadin held Admission and Anticipated Discharge Date Admission Date: June 14, 2023 Subjective Follow-up for right lower extremity cellulitis, etc. Resting in bed, comfortable, not in distress States he feels okay overall Minimal right lower extremity discomfort No fevers or chills No dizziness, chest pain, shortness of breath, palpitations No other new symptom Review of Systems Review of Systems: all noted and negative except for above Physical Exam Physical Exam: General- oriented x 3, not in distress, speaks in sentences with no effort or accessory muscle use Eyes- anicteric Neck- no JVD Lungs- clear breath sounds bilaterally, no rales/wheezes Heart- normal rate, regular rhythm; no murmurs Abdomen- normal bowel sounds, nondistended, soft, nontender Extremities-bilateral grade 2 lower extremity edema Right lower leg: Significant erythema, minimal seepage, no active bleeding Neuro- alert, oriented x 3; no gross focal neurologic deficits Skin- warm & dry Results & Data Results & Data Vital Signs (Past 12 Hours) Vital Signs Temp Pulse Pulse Resp BP Pulse Ox O2 Del Method 06/16/23 16:41 66 06/16/23 14:29 36.4 C L 61 18 91/52 L 97 Room Air 06/16/23 10:50 36.4 C L 62 18 93/56 L 97 Room Air 06/16/23 08:58 Room Air 06/16/23 08:57 62 06/16/23 07:19 36.3 C L 63 18 83/55 L 98 Room Air all noted and reviewed including below
--- OUTSIDE RECORDS SUMMARY | 2023-06-16 20:47 | External Medical Summary | Summary of Care ---
Author Name Unknown Organization [facility] Address [address] [facility] [place] [address] Phone [phone] Care Team Providers Care Jail Officer Name Role Phone Lloyd Jocelyne Briggs DO Primary Care Provider + [phone] Reason for Visit * Reason Onset Date Comments Medication Question 06/14/2023 Encounter Details Date Type Department Care Team (Late st Contact Info) Description 06/14/2023 Telephone Pharmacy Call Center [phone] [place] [address] [facility] [address] [facility] [place] [address] Medication Question Allergies No known active allergiesdocumented as of this encounter (statuses as of 06/14/2023) Medications Medication Sig Dispensed Refills Start Date [...] as of this encounter (statuses as of 06/14/2023) Active Problems Patient Care Coordination No te Formatting of this note migh t be different from the original. Good connectivity [facility] for wound care [phone] Televideo if needed. Problem Noted Date Diagnosed Date History of MO (myocardial infarction) 11/09/2021 Trigger ring finger of left hand 11/09/2021 Overview: Also middle finger Diabetic ulcer of toe of rig ht foot associated with type 2 diabetes mellitus, limited to breakdown of skin 07/13/2021 Last Assessment & Plan: Ulcer appears overall improved. He has significant history DM and PVD and recommended he still follow up with podiatry,. Letter in chart from [facility] podiatry they were unable to get in [...] ICD-10 update of inactive term PLATT RESEARCH OTHER*[id number] 02/20/2007 ADVANCE DIRECTIVE INFORMATION 01/19/2005 Overview: Yes, Patient instructed to provide copy of advance directive for provider to review and to be scanned into Electronic Medical Record No, Advance Directive brochure given to patient at prior appointment. SPINAL STENOSIS-LUMBAR 09/23/2002 Vitamin D deficiency Cervical spinal stenosis documented as of this encounter (statuses as of 06/14/2023) Resolved Problems Problem Noted Date Diagnosed Date Resolved Date Depression, unspecified 11/09/2021 03/2 Depression, unspecified 11/09/202105/2022 Cellulitis of right leg 07/13/202105/2022 Last Assessment & Plan: Suspect this could be early/localized. Will treat with 7 days antibiotic. If pt cannot be reassess by Dr. Braxton office early next week will need [facility] provider recheck Multiple and open wound [...] 11/17/19 23 LUMBAGO 12/24/2002 05/09/2007 LOC PRIM [id number] 12/24/200208/13 DEGENERATIVE SKIN DISORD 12/24/2002 VERTEBRAL FX [...] as of this encounter (statuses as of 06/14/2023) Immunizations Name Administration Dates Next Due COVID-19 [...] encounter Miscellaneous Notes * Telephone Encounter - Erika Nuno, [facility] - 06/14/2023 10:33 AM EDT Contacts Type Contact Phone/Fax 06/14/2023 08:02 AM EDT Phone (Incoming) Lg Cooley" (Self) [phone] (H) 06/14/2023 10:31 AM EDT Phone (Outgoing) Lg Cooley" (Self) [phone] (H) Left Message Returned call and left message to patient reviewing coumadin instructions. Asked patient to call back if able to discuss ED visit today. Will place patient on schedule tomorrow to follow up if admitted. Thank you, Erika Nuno PharmD [facility] ([facility] (formerly Telepharmacy) 06/14/2023 10:37 AM * Telephone Encounter - Tara Yi PHARM Tech - 06/14/2023 8:02 AM EDT Caller's name: Akshat Preferred call back number(OFFICE NUMBER FOR ): [phone] Reason for call: Pt lmovm to let the [facility] know he is on his way to the ED and he is asking for a return call in regards to his dosing for his warfarin. Please advise and return his call. Thank you, Tara Yi Vamp Liner [facility] 06/14/2023,8:02 AM documented in this encounter Plan of Treatment Upcoming Encounters Date Type Department Care Team (Late st Contact Info) Description 06/15/2023 6:45 AM EDT Anticoagulation Pharmacy Call Center [address] [facility] [place] [address] [place] [address] [address] [facility] [place] [address] 06/21/2023 6:30 AM EDT Anticoagulation Pharmacy Call Center [address] [facility] [place] [address] [place] [address] [address] [facility] [place] [address] 11/20/2023 2:00 PM EDT Office Visit Nephrology [address] [place] [address] Marycarmen Kowalski PA-C [address] [place] [address] 02/20/2024 12:30 PM EST Nurse Only Ancillary [address] [place] [address] [place], Nurse [address] [place] [address] Scheduled Procedures Name Priority Associated Diagnoses Date/Ti [...] Additional history exists CKD PHOS USE SMARTSET 68472 11/17/2023 100 05/2022, 09/29/2021, 05/12/2021, Additional history exists Diabetic Foot Exam 11/17/2023 11/16/2022, 0 05/05/2021, 11/22/2017, Additional history exists CKD HGB USE SMARTSET 12690 01/18/202401/17, 01/17/2023, 11/16/2022, Additional history exists Depression [...] this encounter Medical Devices Implanted Type Area Hatchery 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 Device Identifier Shelf Expiration Date Model / Serial / Lot Shaft Fibula 6cm [id number] - [id number] Implanted:Qty: 1 on 09/05/2008 at [place] [facility] Tissue - Human N/A: Spine Cervical MUSCULOSKELETAL TRANSPLANT FND 04/20/2010 [id number] / [id number] / Stent Eso Gw 22x70 [id number] - [id number] Implanted:Qty: 1 on 01/21/2008 at OR [facility] N/A: Esophagus [employer] 04/12/2009 [id number] / / [id number] Depuy Uniplate 32 Implanted:Qty: 1 on 09/05/2008 at OR [facility] N/A: Spine Cervical TAMMY & TAMMY DEPUY 1897--302 / / Depuy Uniplate Screw 14mm Implanted:Qty: 2 on 09/05/2008 at OR [facility] N/A: Spine Cervical TAMMY & TAMMY DEPUY 1897--017 / / Depuy Lordotic Bengal Cage Implanted:Qty: 1 on 05/07/2010 at OR [facility] N/A: Neck 1773-06-146 / 1773-06-146 / Plate Zach 3 Level Ti 54mm - [id number] Implanted:Qty: 1 on 05/07/2010 at OR [facility] N/A: Neck JNJ : DEPUY SPINE [id number] / / Screw Zach Const St Ti 14mm - [id number] Implanted:Qty: 4 on 05/07/2010 at [place] [facility] N/A: Neck JNJ : DEPUY SPINE [id number] 14 / / Screw 3.5x14 Mntr Fa [id number] - [id number] Implanted:Qty: 8 on 05/07/2010 at [place] [facility] N/A: Spine Cervical JNJ : ETHICON CARDIOVATIONS [id number] / / Jarrell [id number] - [id number] Implanted:Qty: 1 on 05/07/2010 at [place] [facility] N/A: Spine Cervical JNJ : ETHICON CARDIOVATIONS [id number] / / Screw Inner Mntr [id number] - [id number] Implanted:Qty: 8 on 05/07/2010 at [place] [facility] N/A: Spine Cervical JNJ : ETHICON CARDIOVATIONS [id number] / / Envista Intraocular Lens Implanted:Qty: 1 on 03/10/2022 by Liang Marshall MD at OR [facility] Right: Eye BAUSCH & LOMB 08/13/2023 [id number] / [id number] / [id number] Envista Intraocular Lens Implanted:Qty: 1 on 03/24/2022 by Liang Marshall MD at OR [facility] Left: Eye BAUSCH & LOMB 07/13/2024 [id number] / [id number] / [id number] documented as of this encounter Advance Directives Documents on File Type Date Recorded 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 Question Answer Comments Discussion of Advance Directives occurred with: Patient Does the patient have a Living Will? No Does the patient have Health Care Power of Call Specialist? No Code Status History Code Status Date Activated Date Inactivated Comments No Code 03/10/2022 7:41 AM 03/10/2022 2:02 PM This order reflects the patients wishes and were consensually agreed upon. Question Answer Comments Discussion of Advance Directives occurred with: Patient Does the patient have a Living Will? No Does the patient have Health Care Power of Call Specialist? No Full Code 05/07/2010 8:55 AM 05/11/2010 9:01 PM This order reflects the patients wishes and were consensually agreed upon. Question Answer Comments Discussion of Advance Directives occurred with: Patient Does the patient have a Living Will? No Does the patient have Health Care Power of Call Specialist? No Full Code 05/07/2010 6:07 AM 05/07/2010 [...] the patient have Health Care Power of Call Specialist? No Care Teams Jail Officer Relationship Specialty Start Date End Date Jocelyne Desai DO [address] [place] [address] [place] [address] PCP - General Internal Medicine 11/09/16 documented as of this encounter
--- OUTSIDE RECORDS SUMMARY | 2023-06-16 20:47 | External Medical Summary | Summary of Care ---
Author Name Unknown Organization [facility] Address [address] [facility] [place] [address] Phone [phone] Care Team Providers Care Brick Chimney Builder Name Role Phone Jocelyne Desai DO Primary Care Provider + [phone] Encounter Details Date Type Department Care Team (Late st Contact Info) Description 06/14/2023 Population Health External Data Unspecified Department Allergies [...] be different from the original. Good connectivity [facility] for wound care [phone] Televideo if needed. Problem Noted Date Diagnosed [...] chart from [facility] podiatry they were unable to get in [...] 11/27/2018 H/O gastric bypass 11/27/2018 Overview: RYGB half-way current use of 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 1 Status [...] ICD-10 update of inactive term PLATT RESEARCH OTHER*[id number] 02/20/2007 ADVANCE DIRECTIVE INFORMATION 01/19/2005 Overview: Yes, [...] [facility] office early next week will need [facility] provider recheck Multiple and open wound [...] 11/17/19 23 LUMBAGO 12/24/2002 05/09/2007 LOC PRIM [id number] 12/24/200208/13 DEGENERATIVE SKIN DISORD 12/24/2002 VERTEBRAL FX [...] EDT Anticoagulation Pharmacy Call Center [facility] [address] [facility] [place] [address] [facility] [address] [facility] [place] [address] 11/20/2023 2:00 PM EDT Office Visit Nephrology [address] [place] [address] Marycarmen Kowalski PA-C [address] [place] [address] 02/20/2024 12:30 PM EST Nurse Only Ancillary [place] [address] [place] [address] [place], Nurse [address] [place] [address] Scheduled Procedures Name Priority Associated Diagnoses Date/Ti [...] Additional history exists CKD PHOS USE SMARTSET 83400 11/17/2023 10/0 05/2022, 09/29/2021, 05/12/2021, Additional history exists Diabetic Foot Exam 11/17/2023 11/16/2022, 0 05/05/2021, 11/22/2017, Additional history exists CKD HGB USE SMARTSET 53476 01/18/202401/17, 01/17/2023, 11/16/2022, Additional history exists Depression [...] this encounter Medical Devices Implanted Type Area Railroad Operator Device Identifier Shelf Expiration Date Model / Serial / Lot Shaft Fibula 6cm [id number] - [id number] Implanted:Qty: 1 on 09/05/2008 at [place] [facility] Tissue - Human N/A: Spine Cervical MUSCULOSKELETAL TRANSPLANT FND 04/20/2010 [id number] / [id number] 0P / Stent Eso Gw 22x70 [id number] - [id number] Implanted:Qty: 1 on 01/21/2008 at [place] [facility] N/A: Esophagus [employer] 04/12/2009 [id number] / / [id number] Depuy Uniplate 32 Implanted:Qty: 1 on 09/05/2008 at [place] [facility] N/A: Spine Cervical TAMMY & TAMMY DEPUY 1897-02-302 / / Depuy Uniplate Screw 14mm Implanted:Qty: 2 on 09/05/2008 at [place] [facility] N/A: Spine Cervical TAMMY & TAMMY DEPUY 1897-06-017 / / Depuy Lordotic Bengal Cage Implanted:Qty: 1 on 05/07/2010 at [place] [facility] N/A: Neck 1773-06-146 / 1773-06-146 / Plate Zach 3 Level Ti 54mm - [id number] Implanted:Qty: 1 on 05/07/2010 at [place] [facility] N/A: Neck JNJ : DEPUY SPINE [id number] / / Screw Zach Const St Ti 14mm - [id number] Implanted:Qty: 4 on 05/07/2010 at [place] [facility] N/A: Neck JNJ : DEPUY SPINE [id number] 14 / / Screw 3.5x14 Mntr Fa [id number] - [id number] Implanted:Qty: 8 on 05/07/2010 at [place] [facility] N/A: Spine Cervical JNJ : ETHICON CARDIOVATIONS [id number] / / Jarrell [id number] - [id number] Implanted:Qty: 1 on 05/07/2010 at [place] [facility] N/A: Spine Cervical JNJ : ETHICON CARDIOVATIONS [id number] / / Screw Inner Mntr [id number] - [id number] Implanted:Qty: 8 on 05/07/2010 at [place] [facility] N/A: Spine Cervical JNJ : ETHICON CARDIOVATIONS [id number] / / Envista Intraocular Lens Implanted:Qty: 1 on 03/10/2022 by Liang Marshall MD at OR [facility] Right: Eye BAUSCH & LOMB 08/13/2023 [id number] / [id number] / [id number] Envista Intraocular Lens Implanted:Qty: 1 on 03/24/2022 by Liang Marshall MD at OR [facility] Left: Eye BAUSCH & LOMB 07/13/2024 [id number] / [id number] / [id number] documented as of this encounter Advance Directives Documents on File Type Date Recorded 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 No Code Status History Code Status Date Activated Date Inactivated Comments No Code 03/10/2022 7:41 AM 03/10/2022 2:02 PM This order reflects the patients wishes and were consensually agreed upon. Question Answer Comments Discussion of Advance Directives occurred with: Patient Does the patient have a Living Will? No Does the patient have Health Care Power of Tile Layer Helper? No Full Code 05/07/2010 8:55 AM 05/11/2010 9:01 PM This order reflects the patients wishes and were consensually agreed upon. Question Answer Comments Discussion of Advance Directives occurred with: Patient Does the patient have a Living Will? No Does the patient have Health Care Power of Tile Layer Helper? No Full Code 05/07/2010 6:07 AM 05/07/2010 [...] the patient have Health Care Power of Tile Layer Helper? No Care Teams Brick Chimney Builder Relationship Specialty Start Date End Date Jocelyne Desai DO [address] [place] [address] [place] [address] PCP - General Internal Medicine 11/09/16 documented as of this encounter
[2023-06-16] MEDS ORDERED: DAPTOmycin 525 MG in SYRINGE 0 ML IV SCH (21:00)
[2023-06-16] MEDS: DAPTOmycin 525 MG in SYRINGE 0 ML IV SCH (21:31)
--- NOTE | 2023-06-16 22:33 | CT Scan Report ---
Exam(s): CT RIGHT FOOT Without Contrast EXAM: CT Right Lower Extremity Without Intravenous Contrast, Foot CLINICAL HISTORY: Cellulitis. TECHNIQUE: Axial computed tomography images of the right foot without intravenous contrast. CTDI is 25.08 mGy and DLP is 1691.39 mGy-cm. Automated exposure control was utilized for the study. A dose lowering technique was utilized adhering to the principles of ALARA. COMPARISON: CT foot 03/08/2022. FINDINGS: Bones/joints: An ulceration overlying the base of the head of the first metatarsal is noted. There are marked degenerative changes of the ankle and foot. A calcaneal enthesophyte is present. There is an amputation of the first digit. No acute fracture. No dislocation. Soft tissues: Marked nonspecific subcutaneous edema. No definitive evidence of abscess. Although this is limited without IV contrast. No radiopaque foreign body. IMPRESSION: 1. Marked nonspecific subcutaneous edema. No definitive evidence of abscess, although this is limited without IV contrast. 2. An ulceration overlying the base of the head of the first metatarsal is noted. 3. There is an indentation of the first digit. Electronically signed by: Lissa Priest MD 06/16/23 22:32 PM
--- NOTE | 2023-06-16 22:34 | CT Scan Report ---
Exam(s): CT EXTREMITY RIGHT LOWER Without Contrast EXAM: CT Right Lower Extremity Without Intravenous Contrast CLINICAL HISTORY: Cellulitis. TECHNIQUE: Axial computed tomography images of the right lower extremity without intravenous contrast. CTDI is 25.08 mGy and DLP is 1691.39 mGy-cm. Automated exposure control was utilized for the study. A dose lowering technique was utilized adhering to the principles of ALARA. COMPARISON: No relevant prior studies available. FINDINGS: Bones/joints: There are degenerative changes of the knee and ankle. No acute fracture. No dislocation. Soft tissues: Marked nonspecific subcutaneous edema of the calf without organized fluid collection. Vasculature: Marked atherosclerosis. IMPRESSION: Marked nonspecific subcutaneous edema of the calf without organized fluid collection. Electronically signed by: Lissa Priest MD 06/16/23 22:33 PM
[2023-06-17 06:50] LABS: Basophils # (auto) 0.01 K/uL (0.00-0.20); Basophils % (auto) 0.1 %; Eosinophils # (auto) 0.18 K/uL (0.00-0.50); Eosinophils % (auto) 2.5 %; Hematocrit (blood only) 26.5 % (42.0-52.0); Immature Granulocytes # (auto) 0.07 K/uL (0.01-0.20); Lymphocytes # (auto) 0.43 K/uL (1.20-3.40); Lymphocytes % (auto) 5.9 %; Mean Corpuscular Hemoglobin 29.7 pg (25.0-34.0); Mean Corpuscular Volume 87.5 fL (80.0-100.0); Mean Platelet Volume 11.2 fL (9.4-12.4); Monocytes # (auto) 0.46 K/uL (0.11-0.59); Monocytes % (auto) 6.3 %; Neutrophils # (auto) 6.16 K/uL (1.40-6.50); Neutrophils % (auto) 84.2 %; Platelet Count 89 K/uL (130-400); RDW Coefficient of Variation 14.6 % (11.5-14.5); RDW Standard Deviation 46.7 fL (36.4-46.3); Red Blood Count 3.03 M/uL (4.70-6.10); White Blood Count 7.31 K/ul (4.8-10.8)
[2023-06-17 07:07] LABS: Prothrombin Time 57.5 Seconds (9.0-12.0)
[2023-06-17 07:23] LABS: INR 6.2 (0.9-1.1)
[2023-06-17 07:24] LABS: BUN Creatinine Ratio 16.4 (10-20); Calcium 7.3 mg/dl (8.6-10.3); Creatinine Clr Calc Pharmacy 19.1 ml/min; Est GFR (African American) 13.4 ml/min; Est GFR (Non-African American) 11.5 ml/min; Potassium 3.5 mmol/L (3.5-5.1)
[2023-06-17] MEDS: ADVANCED PROBIOTIC 625 MG CAPSULE PO SCH (08:19)
--- NOTE | 2023-06-17 13:40 | Hospitalist Progress Note ---
Date of Service June 17, 2023 Assessment & Plan (1) Cellulitis of leg, right: Plan: (1) Cellulitis of leg, right: (2) Hx MRSA infection: (3) Diabetic ulcer of right foot: (4) Diabetes type 2, controlled: (5) Atrial fibrillation: (6) Peripheral arterial disease: (7) Hypertension: (8) CVA (cerebral vascular accident): (9) Dyslipidemia: (10) Pacemaker: (11) Tachy-geronimo syndrome: (12) Acute kidney injury superimposed on chronic kidney disease: Plan per admitting service notes with addendum: 72 year old male with RLE cellulitis with IV abx including Dapto + Vanco given patient MRSA history and taking into consideration worsening kidney function, Infectious Disease input, WOCN consult, PT/OT and possible imaging to r/o osteo if no improvement. Will also monitor kidney function and seek consult from Nephrology. Will continue IV fluids for now and recheck BMP later this afternoon. Hold Nephrotoxic agents and replace Mg+. PT/OT pending any rehab placement needs. # Cellulitis: Non-healing ulcers: Acute Leukocytosis 13.51 Procalcitonin 10.4, lactate normal Blood cultures and UA obtained in ED Troponin 31.1; suspect ischemic demand rather than ACS Started on Zosyn plus Vanco in ED; Will adjust to Zosyn + Dapto for now given history of MRSA and keeping in mind nephrotoxicity Recheck MRSA screen Doppler US negative for DVT WOCN placed ID consult placed Consider CT RLE given history of Osteomyelitis when creatinine resolves; hold on imaging for now PT/OT for possible rehab needs 5/2 blood cultures: pending ID consulted, awaiting final recommendations currently on Dapto + Zosyn 5/[address] lower extremity, foot ordered Continue daptomycin plus Zosyn 5/4 Afebrile Still having significant erythema over the area Blood cultures: Negative Continue daptomycin plus Zosyn ID service consulted UTI Urine culture: Staph species, Enterococcus faecalis Continue daptomycin IV #: JORGE on CKD Acute Serum creatinine 3.16; baseline 1.4-1.7 crea continues to increase, currently 4.7 Nephro consulted If without improvement, hemodialysis being contemplated #: Hypomagnesemia: Acute resolved #: HFrEF: Chronic Last ECHO 09/2022; normal LV wall motion, mildly concentric. EF 55-59%, mild MR, mild pHTN Takes Lasix 20 mg PRN based on weight; no recent weight fluctuations Took Lasix 40 mg PO on Monday. CXR negative for acute cardiopulmonary disease and no signs of pulmonary congestion Lungs CTA on exam 06/16 (+) gr 2 lower ext edema Echocardiogram: EF 55 to 60%, mild concentric LVH, left atrium severely dilated, aortic valve sclerosis moderate, without significant aortic valve stenosis, mild mitral regurg, mild to moderate tricuspid regurg, estimated pulmonary artery pressure is 49 mmHg # Atrial Fibrillation: Chronic Takes Coumadin; continue INR 2.5 Takes Metoprolol; continue 06/15 INR increasing, today 6.2 Hold Coumadin Hold aspirin Will order 1 dose of vitamin K 2.5 mg p.o. INR daily #: HTN: Chronic takes Losartan; hold for now given JORGE Blood pressure on the lower side Has been receiving as needed low-volume IV NSS boluses # CAD: S/P Pacemaker: Chronic Pacer exchange a few weeks ago Follows with Dr. Carpenter with Cardiology monitor in Telemetry #: NIDDM Diabetes: Chronic Last A1C 6.5 on 11/2022. On Ozempic; hold while inpt A1C: 6.0 # HLD: Chronic takes Atorvastatin;hold for now while on Dapto d/t increased r/o rhabdo # BPH: Chronic. Takes Tamsulosin; continue Disposition: PCP: Dr. Jocelyne Desai COde status: Full VTE Prophylaxis: INR > 3, coumadin held Admission and Anticipated Discharge Date Admission Date: June 14, 2023 Subjective Follow-up for right lower extremity cellulitis, acute renal failure on CKD, etc. Seen resting in chair, comfortable, not in distress States he feels okay overall Reports scrotal edema but no pain, tenderness, problems with voiding Reports minimal discomfort over the right lower extremity No shortness of breath, chest pain, palpitations, dizziness No other symptoms Review of Systems Review of Systems: all noted and negative except for above Physical Exam Physical Exam: General- oriented x 3, not in distress, speaks in sentences with no effort or accessory muscle use Eyes- anicteric Neck- no JVD Lungs- clear breath sounds bilaterally, no rales/wheezes Heart- normal rate, regular rhythm; no murmurs Abdomen- normal bowel sounds, nondistended, soft, nontender Positive scrotal edema, no erythema/warmth/tenderness Extremities-grade 2 lower extremity edema, dressing over right lower extremity Compression stocking over left lower extremity Neuro- alert, oriented x 3; no gross focal neurologic deficits Skin- warm & dry Results & Data Results & Data Vital Signs (Past 12 Hours) Vital Signs Temp Pulse Pulse Resp BP BP Pulse Ox 06/17/23 10:47 36.2 C L 61 18 94/56 L 99 06/17/23 09:29 60 06/17/23 07:37 36.4 C L 78 18 97/63 L 97 06/17/23 07:19 06/17/23 03:58 36.5 C 60 18 102/60 96 O2 Del Method 06/17/23 10:47 Room Air 06/17/23 09:29 06/17/23 07:37 Room Air 06/17/23 07:19 Room Air 06/17/23 03:58 Room Air
[2023-06-17] MEDS: PHYTONADIONE 5 MG TAB PO STA (14:24)
--- NOTE | 2023-06-17 18:35 | Nephrology Progress Note ---
Date of Service June 17, 2023 Assessment & Plan (1) Acute kidney injury superimposed on chronic kidney disease: Plan: now stage 2 nonoliguric JORGE on baseline proteinuric CKD 3B. marked worsening of Proteinuric CKD 3 from DM, HTN and also hx of recurrent cellulitis since at least 09/2022 -- baseline 1.7. 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 and w/ extensive cardiovascular hx > PVD, CAD, DM > overall renal prx is poor. Creat 3.16 yesterday and today is higher at 3.43 despite 2 liters of NS. Blood and urine C/s pending. urine sediment is active and more consistent with ATN. His BP has been consistently low this admission; renal u/s negative with creat still rising he is not totally out of danger as far as need of dialysis. will know more in the coming days. for now no major electrolyte issues, though he does have AG metabolic acidosis, mild hypokalemia avoid nephrotoxic agents. Hold losartan, Lasix, NSAIDS, contrast agents. I and O charting. Daily CBC and renal panel. >will start midodrine 2.5 mg tid w/ 2 doses ordered for this evening >may be ischemic ATN but could also be glomerular process related to his recurrent infections potentially > multiple send out labs ordered for am > ESR, complement, cryoglobulinemia, hep panel, anti histone ab, anca, spep, urine CASSIDY, k/lambda (2) Cellulitis of leg, right: Plan: continue dapto, zosyn Admission and Anticipated Discharge Date Admission Date: June 14, 2023 Subjective seen on early afternoon rounds. feels he's doing a bit better mrashal wrt exertional dypsnea. ornelas is out and feels he's voiding ok. does note mild/worsening scrotal edema Review of Systems 2 Review of Systems: All systems reviewed & are unremarkable except as noted in Subjective Physical Exam 2 Constitutional: well developed sitting up in chair on RA, frail appearing, cachectic Eyes: EOM intact bilaterally ENMT: Ears: no external ear abnormality Nose: no external nose abnormality Mouth: + dry oral mucous membranes Neck: no nuchal rigidity Respiratory: normal respiratory effort Auscultation: lungs clear to auscultation bilaterally (no cough) and + diminished lung sounds (markedly) Cardiovascular: Rate/Rhythm: regular rate and regular rhythm Extremities: + edema (2-3+) Gastrointestinal (Abdomen): Inspection/Auscultation: normal bowel sounds P ercussion/Palpation: abdomen soft; abdomen nontender Musculoskeletal: Extremities: strength 5/5 throughout Skin: RLE wrapped w/ dressings soaked; red patch medial R thigh w/ 3 bullae Neurologic: wolf, fluent speech, no tremor Psychiatric: Orientation: alert and oriented x 3 Results & Data Vital Signs (Past 12 Hours) Vital Signs Temp Pulse Pulse Resp BP Pulse Ox O2 Del Method 06/17/23 17:24 65 06/17/23 17:24 65 06/17/23 15:40 36.3 C L 63 18 95/59 L 95 Room Air 06/17/23 10:47 36.2 C L 61 18 94/56 L 99 Room Air 06/17/23 09:29 60 06/17/23 07:37 36.4 C L 78 18 97/63 L 97 Room Air 06/17/23 07:19 Room Air Laboratory Results 06/17/23 06:26 06/17/23 06:26 Diagnostic Findings cxr 1. No hydronephrosis. 2. Mild cortical thinning which is likely age-related. 3. Trace perinephric fluid. This may be chronic. 4. Normal bladder. 5. Cholelithiasis.
[2023-06-17] MEDS: MIDODRINE HCL 2.5 MG TAB PO ONE ×2 (20:03→20:59)
[2023-06-17] MEDS: PIPERACILLIN/TAZOBACTAM 4.5 GM in DEXTROSE 5% MINI-B 100 ML IV SCH (20:58)
[2023-06-18] MEDS ORDERED: MICONAZOLE NITRATE POWDER 85 GM EXT PRN (00:57)
[2023-06-18 05:54] LABS: Basophils # (auto) 0.01 K/uL (0.00-0.20); Basophils % (auto) 0.2 %; Eosinophils # (auto) 0.18 K/uL (0.00-0.50); Eosinophils % (auto) 3.2 %; Hematocrit (blood only) 27.3 % (42.0-52.0); Immature Granulocytes # (auto) 0.02 K/uL (0.01-0.20); Immature Granulocytes % (auto) 0.4 %; Lymphocytes # (auto) 0.51 K/uL (1.20-3.40); Mean Corpuscular Hemoglobin 29.1 pg (25.0-34.0); Mean Corpuscular Volume 88.3 fL (80.0-100.0); Mean Platelet Volume 11.5 fL (9.4-12.4); Neutrophils # (auto) 4.57 K/uL (1.40-6.50); Neutrophils % (auto) 80.2 %; Platelet Count 111 K/uL (130-400); RDW Coefficient of Variation 14.6 % (11.5-14.5); RDW Standard Deviation 46.7 fL (36.4-46.3); Red Blood Count 3.09 M/uL (4.70-6.10); White Blood Count 5.69 K/ul (4.8-10.8)
[2023-06-18 06:02] LABS: INR 4.7 (0.9-1.1); Prothrombin Time 44.6 Seconds (9.0-12.0)
[2023-06-18 06:18] LABS: BUN Creatinine Ratio 16.2 (10-20); Calcium 7.2 mg/dl (8.6-10.3); Creatinine Clr Calc Pharmacy 17.8 ml/min; Est GFR (African American) 12.4 ml/min; Est GFR (Non-African American) 10.7 ml/min; Potassium 3.5 mmol/L (3.5-5.1)
[2023-06-18] MEDS: ALBUMIN 25% 25 GM/100 ML VIAL IV ONE (06:30)
--- NOTE | 2023-06-18 10:12 | Nephrology Progress Note ---
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 marked worsening of Proteinuric CKD 3 from DM, HTN and also hx of recurrent cellulitis since at least 09/2022 -- baseline 1.7. historically w/ 1-2 gm proteinuria since at least 2017 w/ negative serologic w/u 2018. 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 and w/ extensive cardiovascular hx > PVD, CAD, DM > overall renal prx is poor. Creat 3.2 on 06/13 presentation and today is up to 5.1 despite being 4L positive overall. Blood cxs negative; urine grew Staph aureus and enterococcus; no wound cxs. urine sediment is active w/ granular casts, 2+ blood and protein and leukocyte esterase, also trace ketones. only the casts are new on review of prior urine specimens. His BP has been consistently low this admission; renal u/s negative with creat still rising he may well need dialysis and/or renal biopsy. will know more in the coming days. for now no major electrolyte issues, though he does have an anion gap metabolic acidosis, mild hypokalemia, mild hyponatremia avoid nephrotoxic agents. -Hold losartan, Lasix, NSAIDS, contrast agents. -I and O charting, strict. -Daily CBC and renal panel. >cont midodrine to 2.5 mg tid >may be ischemic ATN but could also be glomerular process superimposed or solo -ESR 66 which is somewhat reassuring no GN but far from definitive >f/u pending glomerular studies related to his recurrent infections potentially > multiple send out labs ordered for am > ESR, complement, cryoglobulins, hep panel, anti histone ab, anca, spep, urine CASSIDY, k/lambda; doing 24 hr urine for urine studies (2) Cellulitis of leg, right: Plan: continue dapto, zosyn Admission and Anticipated Discharge Date Admission Date: June 14, 2023 Subjective feels ok ; scrotal swelling down some; bullous lesions R medial thigh burst ON and draining now; overall feels swelling and exertional dyspnea remain improved. no n/v, no confusion. 24 hr urine in process Review of Systems 2 Review of Systems: All systems reviewed & are unremarkable except as noted in Subjective Physical Exam 2 Constitutional: well developed, + frail appearing (sitting up in chair on RA) and cooperative; no acute distress Eyes: EOM intact bilaterally ENMT: Ears: no external ear abnormality Nose: no external nose abnormality Mouth: + dry oral mucous membranes Neck: no nuchal rigidity Respiratory: normal respiratory effort Auscultation: lungs clear to auscultation bilaterally (no cough) and + diminished lung sounds (markedly) Cardiovascular: Rate/Rhythm: regular rate and regular rhythm Extremities: + edema (2-3+) Gastrointestinal (Abdomen): Inspection/Auscultation: normal bowel sounds P ercussion/Palpation: abdomen soft; abdomen nontender Musculoskeletal: Extremities: strength 5/5 throughout Skin: RLE thigh/raymundo lesions not examined Psychiatric: Orientation: alert and oriented x 3 Results & Data Vital Signs (Past 12 Hours) Vital Signs Temp Pulse Pulse Resp BP BP Pulse Ox 06/18/23 07:36 36.3 C L 63 18 102/60 98 06/18/23 07:28 67 06/18/23 03:32 36.6 C 60 16 107/62 99 06/17/23 23:38 60 06/17/23 23:15 36.5 C 62 16 104/62 98 06/17/23 23:00 O2 Del Method 06/18/23 07:36 Room Air 06/18/23 07:28 06/18/23 03:32 Room Air 06/17/23 23:38 06/17/23 23:15 Room Air 06/17/23 23:00 Room Air Diagnostic Findings 06/18/23 05:18 06/18/23 05:18
--- NOTE | 2023-06-18 11:50 | Hospitalist Progress Note ---
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 Will also monitor kidney function and seek consult from Nephrology. Will continue IV fluids for now and recheck BMP later this afternoon. Hold Nephrotoxic agents and replace Mg+. PT/OT pending any rehab placement needs. # Cellulitis: Non-healing ulcers: Acute Leukocytosis 13.51 Procalcitonin 10.4, lactate normal Blood cultures and UA obtained in ED Troponin 31.1; suspect ischemic demand rather than ACS Started on Zosyn plus Vanco in ED; Will adjust to Zosyn + Dapto for now given history of MRSA and keeping in mind nephrotoxicity Recheck MRSA screen Doppler US negative for DVT WOCN placed ID consult placed Consider CT RLE given history of Osteomyelitis when creatinine resolves; hold on imaging for now PT/OT for possible rehab needs 06/14 blood cultures: pending ID consulted, awaiting final recommendations currently on Dapto + Zosyn 06/[address] lower extremity, foot ordered Continue daptomycin plus Zosyn 06/16 Afebrile Still having significant erythema over the area Blood cultures: Negative Continue daptomycin plus Zosyn ID service consulted 06/17 Slow healing of the cellulitis noted Likely secondary to underlying significant lower extremity edema from acute renal failure Blood cultures negative Continue IV daptomycin plus Zosyn ID service on board Will also consult podiatry service for evaluation of right foot plantar ulcers UTI Urine culture: Staph species, Enterococcus faecalis Continue daptomycin IV #: JORGE on CKD Acute Serum creatinine 3.16; baseline 1.4-1.7 crea continues to increase, currently 5.0 Nephro consulted If without improvement, hemodialysis being contemplated #: Hypomagnesemia: Acute resolved #: HFrEF: Chronic Last ECHO 09/2022; normal LV wall motion, mildly concentric. EF 55-59%, mild MR, mild pHTN Takes Lasix 20 mg PRN based on weight; no recent weight fluctuations Took Lasix 40 mg PO on Monday. CXR negative for acute cardiopulmonary disease and no signs of pulmonary congestion Lungs CTA on exam 06/17 (+) gr 2 lower ext edema Echocardiogram: EF 55 to 60%, mild concentric LVH, left atrium severely dilated, aortic valve sclerosis moderate, without significant aortic valve stenosis, mild mitral regurg, mild to moderate tricuspid regurg, estimated pulmonary artery pressure is 49 mmHg # Atrial Fibrillation: Chronic Takes Coumadin INR 2.5 Takes Metoprolol; continue 06/15 INR increasing, today 6.2 Hold Coumadin Hold aspirin Will order 1 dose of vitamin K 2.5 mg p.o. INR daily 06/17 INR currently 4.7 #: HTN: Chronic takes Losartan; hold for now given JORGE Blood pressure on the lower side Has been receiving as needed low-volume IV NSS boluses Midodrine started # CAD: S/P Pacemaker: Chronic Pacer exchange a few weeks ago Follows with Dr. Carpenter with Cardiology monitor in Telemetry #: NIDDM Diabetes: Chronic Last A1C 6.5 on 11/2022. On Ozempic; hold while inpt A1C: 6.0 # HLD: Chronic takes Atorvastatin;hold for now while on Dapto d/t increased r/o rhabdo # BPH: Chronic. Takes Tamsulosin; continue Disposition: PCP: Dr. Jocelyne Desai COde status: Full VTE Prophylaxis: INR > 3, coumadin held Admission and Anticipated Discharge Date Admission Date: June 14, 2023 Subjective Follow-up for right lower extremity cellulitis, acute renal failure, etc. Seen resting in bedside chair, comfortable, not in distress Minimal discomfort in the right lower extremity No fevers or chills, nausea vomiting no chest pain, dyspnea, palpitations, dizziness No other new symptoms Review of Systems Review of Systems: all noted and negative except for above Physical Exam Physical Exam: General- oriented x 3, not in distress, speaks in sentences with no effort or accessory muscle use Eyes- anicteric Neck- no JVD Lungs- clear breath sounds bilaterally, no crackles, no wheezing noted Heart- normal rate, regular rhythm; no murmurs Abdomen- normal bowel sounds, nondistended, soft, nontender Extremities-grade 2 lower extremity edema, right more than left Dressings in place, seepage noted Positive ulcer on the right foot plantar aspect, 1st-2nd MTP area Neuro- alert, oriented x 3; no gross focal neurologic deficits Skin- warm & dry Results & Data Results & Data Vital Signs (Past 12 Hours) Vital Signs Temp Pulse Pulse Resp BP BP Pulse Ox 06/18/23 11:19 36.4 C L 61 18 98/60 L 99 06/18/23 07:36 36.3 C L 63 18 102/60 98 06/18/23 07:28 67 06/18/23 03:32 36.6 C 60 16 107/62 99 O2 Del Method 06/18/23 11:19 Room Air 06/18/23 07:36 Room Air 06/18/23 07:28 06/18/23 03:32 Room Air all noted and reviewed including below
[2023-06-18] MEDS: oxyCODONE HCL IR 5 MG TAB (IMMEDIATE RELEASE) PO STA (14:27)
--- NOTE | 2023-06-18 18:51 | Electrocardiogram Report ---
Test Reason : Blood Pressure : / mmHG Vent. Rate : 069 BPM Atrial Rate : 127 BPM P-R Int : 000 ms QRS Dur : 196 ms QT Int : 482 ms P-R-T Axes : 000 -77 107 degrees QTc Int : 516 ms Ventricular-paced rhythm Underlying atrial fibrillation Abnormal ECG When compared with ECG of 13-OCT-2022 10:21, Vent. rate has increased BY 9 BPM Confirmed by Amarjit Oliveros ([id number]) on 06/18/2023 6:50:32 PM Referred By: REFERRED SELF Confirmed By:Amarjit Oliveros
[2023-06-18] MEDS: MIDODRINE HCL 2.5 MG TAB PO SCH (19:19)
[2023-06-19 06:45] LABS: Basophils # (auto) 0.01 K/uL (0.00-0.20); Basophils % (auto) 0.2 %; Eosinophils # (auto) 0.12 K/uL (0.00-0.50); Eosinophils % (auto) 2.2 %; Hematocrit (blood only) 27.1 % (42.0-52.0); Immature Granulocytes # (auto) 0.04 K/uL (0.01-0.20); Immature Granulocytes % (auto) 0.7 %; Lymphocytes # (auto) 0.53 K/uL (1.20-3.40); Lymphocytes % (auto) 9.9 %; Mean Corpuscular Hemoglobin 28.9 pg (25.0-34.0); Mean Corpuscular Hgb Conc 33.2 g/dL (32.0-36.0); Mean Corpuscular Volume 87.1 fL (80.0-100.0); Mean Platelet Volume 11.2 fL (9.4-12.4); Monocytes # (auto) 0.43 K/uL (0.11-0.59); Neutrophils # (auto) 4.25 K/uL (1.40-6.50); Platelet Count 148 K/uL (130-400); RDW Coefficient of Variation 14.4 % (11.5-14.5); RDW Standard Deviation 46.1 fL (36.4-46.3); Red Blood Count 3.11 M/uL (4.70-6.10); White Blood Count 5.38 K/ul (4.8-10.8)
[2023-06-19 06:58] LABS: BUN Creatinine Ratio 16.3 (10-20); Calcium 7.3 mg/dl (8.6-10.3); Creatinine Clr Calc Pharmacy 18.1 ml/min; Est GFR (African American) 12.7 ml/min; Potassium 3.6 mmol/L (3.5-5.1)
[2023-06-19 07:02] LABS: INR 3.5 (0.9-1.1); Prothrombin Time 33.7 Seconds (9.0-12.0)
--- NOTE | 2023-06-19 11:06 | Podiatry Consultation ---
Date of Consultation June 19, 2023 Assessment & Plan (1) Cellulitis of leg, right: (2) Cellulitis of right lower extremity: (3) Chronic osteomyelitis: (4) Status post partial amputation of foot: (5) Diabetes type 2 with atherosclerosis of arteries of extremities: (6) Personal history of diabetic foot ulcer: Plan - Pt seen at bedside. Wound debrided to healthier base at bedside. - Cleansed and redressed with pomogram/collagen dressing and adhesive border dressing. - No further surgical intervention planned. Being treated by provider in [place] adequately. - These foot ulcers are chronic, need outpatient wound care, and continued offloading. - Unlikely/less likely that the underlying charcot or chronic ulcer is leading to the leg cellulitis. - More likely related to venous insufficiency and venous ulcerations. - Will f/u as needed if he's worsening. Otherwise, continue wound care and antibiotics for now. History of Present Illness Reason for Consultation: Right foot ulcer Attending Physician: Paul Dela Cruz MD History of Present Illness Patient seen at bedside. He states that he presented to the emergency department with worsening complaints of right foot ulceration and cellulitis. This ulcer he is dealing with his long-standing and he is in care with a provider in [place]. He has had this debrided on a regular basis, and has had these digital amputations performed by a local orthopedist as needed, as well. Now, his foot is feeling relatively good and he feels it is stabilized. He denies any new concerns and thinks that the ulcers are still improving from her baseline. His main concern is the right lower extremity cellulitis, drainage, and venous ulcerations. He states that he has felt better on IV antibiotics at this admission and currently has no nausea, vomiting, fevers, chills, or shortness of breath. We were consulted to assess this right foot ulceration and to see if any further intervention is required at this time. Allergies Allergy/AdvReac Type Severity Reaction Status Date / Time No Known Allergies Allergy Verified 05/12/22 11:02 Home Medications Medication Instructions Recorded Confirmed Type pediatric [id number] 1 tab PO PM ##0 04/11/13 06/14/23 History (Ne Complete (iron) chewable tablet) atorvastatin 40 mg tablet 40 mg PO PM #0 tabs 01/08/17 06/14/23 History cholecalciferol (vitamin D3) 25 2,000 unit PO PM 10/18/17 06/14/23 History mcg (1,000 unit) capsule (Vitamin D3) cyanocobalamin (vitamin B-12) 1,000 mcg PO PM 05/06/19 06/14/23 History 1,000 mcg tablet furosemide 20 mg tablet 20 mg PO DAILY PRN swelling 05/06/19 06/14/23 History tamsulosin 0.4 mg capsule 0.4 mg PO PM 05/06/19 06/14/23 History magnesium oxide 400 mg PO DAILY 09/26/19 06/14/23 History triamcinolone acetonide 0.1 % 1 applic topical BID PRN Rash 08/11/20 06/14/23 History topical cream acetaminophen 500 mg tablet 1,000 mg PO Q6H PRN Pain 12/17/20 06/14/23 History aspirin 81 mg tablet 81 mg PO DAILY 12/21/20 06/14/23 History warfarin 3 mg tablet 3 mg PO [id number]@159910/07/22 06/14/23 History warfarin 3 mg tablet 6 mg PO MO@1600 10/07/22 06/14/23 History cyclobenzaprine 10 mg tablet 10 mg PO Q8H PRN muscle spasm #15 10/16/22 06/14/23 Rx tabs metoprolol succinate 25 mg 25 mg PO QAM #30 tabs 10/16/22 06/14/23 Rx tablet,extended release 24 hr losartan 50 mg tablet 50 mg PO DAILY 01/18/23 06/14/23 History semaglutide 0.25 mg or 0.5 mg (2 0.25 mg subcut WK 01/18/23 06/14/23 History mg/1.5 mL) subcutaneous pen injector senna-docusate sodium tablet 1 tab PO DAILY 01/18/23 06/14/23 History Patient History Medical History Hyperlipemia Essential hypertension 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 kidney disease Degenerative cervical spinal stenosis Degenerative lumbar spinal stenosis Proliferative diabetic retinopathy Venous insufficiency of both lower extremities Erectile dysfunction Nonalcoholic 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 (PLATT) [facility] current use of 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 Hyperparathyroidism, secondary renal Esophageal obstruction Complex sleep apnea syndrome Vitamin B12 deficiency Persistent proteinuria Morbid obesity Paroxysmal SVT (supraventricular tachycardia) Myocardial Infarction 2018 > medically managed Diabetic peripheral neuropathy associated with type 2 diabetes mellitus Diabetes type 2, controlled NIDDM Peripheral arterial disease 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, 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, Right great toe amputation 07/2020 with revision 08/2020 Chronic anemia CVA (cerebral vascular accident) 01/2018; residual right sided weakness Mixed sleep apnea No device (previous BIPAP) CKD (chronic kidney disease), stage III Dyslipidemia Tachy-geronimo syndrome CHF (congestive heart failure) Acute renal failure superimposed on stage 3 chronic kidney disease 08/2020 hospitalization, UTI and osteomyelitis, necrotizing fasciitis Depression Pacemaker Left, normal single chamber pacemaker function with stable pacing and sensing thresholds per pacer check 12/08/20 [facility] Hypertension Sepsis 2013 Atrial fibrillation Surgical History History of amputation of lesser toe of right foot Hx of angioplasty Amputation toe Right great toe amputation (08/12/20): MAC at [facility] History of esophagogastroduodenoscopy (EGD) History of vascular surgery Left 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, 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 (10/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) Right great toe I&D, revision amputation (08/21/20): MAC at [facility] History of hand surgery Tendon transfer Gastric bypass status for obesity Family History Brother Diabetes Mother Diabetes Father Diabetes Other Cancer Hypertension Social History Smoking Status: Never smoker Tobacco Type: Cigarettes Second Hand Exposure: No; Do You Dip or Chew Tobacco: No; Hx Alcohol Use: No Hx Substance Use: No Preferred Language: Welsh 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 Ability: Effective Visual Impairment: No Limitations Hearing Ability: Normal Oracle Adf Consultant Required: No Beliefs That Will Affect Care: None marital status: Current Living Situation: Alone Current Living Situation Comment: Daughter lives upstairs. current occupational status: retired How many Children do You have: 2 Feels Safe at Home: Yes Diet Comment: Educated to increase protein, vitamin c, d and zinc Assistive Devices: BiPap, Cane, Hospital Bed, Lift Chair and Walker Review of Systems Review of Systems: All systems reviewed & are unremarkable except as noted in HPI & below Constitutional: no fever, no chills and no fatigue Eyes: no problem reported Ear, Nose, Mouth, Throat: no problem reported Respiratory: no problem reported Cardiovascular: + edema; no problem reported Gastrointestinal: no nausea, no vomiting and no problem reported Musculoskeletal: no problem reported Integumentary: + skin ulcer, + wounds and + erythema Neurologic: + loss of sensation, + numbness and + pa resthesia; no generalized weakness Psychiatric: no problem reported Physical Exam Physical Exam: Right lower extremity focused exam: DP/PT pulses nonpalpable, likely secondary to lower extremity edema. Advance trophic changes are noted with thinning of the skin, distal cooling, and dystrophic toenails. CFT is brisk to the digits with no evidence of necrosis. No purulent drainage is appreciated to the plantar aspect of the right foot. The ulcer is bifurcated or bilobed to the plantar aspect of the right foot, with 2 circumscribed neuropathic ulcerations noted. The first one is larger, underlying the second metatarsal head. This measures 1 cm in diameter. The smaller one, more medially, more underlying the first metatarsal head, is 0.5 cm in diameter. They're both deep through the subcutaneous tissue. No underlying bone is exposed. No deep probing or undermining of the wounds margins is noted. Protective sensation is absent. No pain on debridement of the ulcers as noted, as well. Multiple digital amputations are noted to the right foot, including amputation of the entire hallux and partial second and third toe amputations as well. These are well- healed and secondary to prior osteomyelitis.ampu Constitutional: WD/WN, vitals as above + ill appearing Eyes: PERRL, conjunctivae normal, anicteric sclerae ENMT: external ear and nose normal, oropharynx normal Neck: trachea midline, no thyromegaly normal visual inspection Respiratory: normal respiratory effort; no respiratory distress Cardiovascular: Rate/Rhythm: regular rate and regular rhythm Vessels: + posterior tibial pulses abnormal and + dorsalis pedis pulses abnormal Extremities: + pedal edema and + edema; no calf tenderness Chest (Breasts): Chest: normal inspection of chest Gastrointestinal (Abdomen): Inspection/Auscultation: abdomen normal to inspection Percussion/Palpation: + abdomen tender and abdomen soft Musculoskeletal: no cyanosis or clubbing, extremities motor strength 5/5 Head/Neck/Chest: normocephalic and head atraumatic Extremities: extremities normal to inspection and + amputation noted Neurologic: awake; no focal motor deficits Psychiatric: A+Ox3, euthymic affect Results & Data Vital Signs (Past 12 Hours) Vital Signs Temp Pulse Pulse Resp BP Pulse Ox O2 Del Method 06/19/23 08:52 36.4 C L 61 17 105/63 98 Room Air 06/19/23 07:01 62 06/19/23 03:50 36.5 C 63 18 107/63 99 Room Air 06/19/23 00:05 60 06/19/23 00:00 Room Air 06/18/23 23:07 36.2 C L 60 16 103/58 L 97 Room Air Diagnostic Findings CT scan reveals chronic changes consistent with prior Charcot reconstruction and no evidence of severe underlying infection. No evidence of acute osteomyelitis is appreciated. No drainable abscesses suggested with none noted clinically, as well.
--- NOTE | 2023-06-19 14:23 | Nephrology Progress Note ---
Date of Service June 19, 2023 Assessment & Plan (1) Acute kidney injury superimposed on chronic kidney disease: Plan: plateau'd now stage 3 nonoliguric JORGE on baseline proteinuric CKD 3B. favor ischemic ATN but could also be superimposed glomerular process marked worsening of Proteinuric CKD 3 from DM, HTN and also hx of recurrent cellulitis since at least 09/2022 -- baseline 1.7. historically w/ 1-2 gm proteinuria since at least 2017 w/ negative serologic w/u 2018. 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 and w/ extensive cardiovascular hx > PVD, CAD, DM > overall renal prx is poor. Creat 3.2 on 06/13 presentation, peaked at 5.1 on 06/17, down slightly today. Blood cxs negative; urine grew Staph aureus and enterococcus; no wound cxs. urine sediment is active w/ granular casts, 2+ blood and protein and leukocyte esterase, also trace ketones. only the casts are new on review of prior urine specimens. His BP has been consistently low this admission; renal u/s negative hoping w/ plateau in rise he will gradually improve; however cannot r/o need for dialysis and/or renal biopsy. will know more in the coming days. for now no major electrolyte issues, though he does have an anion gap metabolic acidosis, mild hypokalemia, mild hyponatremia avoid nephrotoxic agents. -Hold losartan, Lasix, NSAIDS, contrast agents. -I and O charting, strict. -Daily CBC and renal panel. >cont midodrine to 2.5 mg tid -ESR 66 which is somewhat reassuring no GN but far from definitive; HCV was negative in 09/2022 >f/u pending glomerular studies related to his recurrent infections potentially > multiple send out labs pending > complement, cryoglobulins, hep B SAg/SAb, anti histone ab, anca, spep, urine CASSIDY, k/lambda; doing 24 hr urine for CASSIDY (2) Cellulitis of leg, right: Plan: continue dapto, zosyn Admission and Anticipated Discharge Date Admission Date: June 14, 2023 Subjective no interval events clinically. got up w/ PT to bathroom and toileted > not too sob he states w/ this. feels overall exertional dyspnea and LE edema improving Review of Systems 2 Review of Systems: All systems reviewed & are unremarkable except as noted in Subjective Physical Exam 2 Constitutional: well developed, + frail appearing (sitting up in chair on RA) and cooperative; no acute distress Eyes: EOM intact bilaterally ENMT: Ears: no external ear abnormality Nose: no external nose abnormality Mouth: + dry oral mucous membranes Neck: no nuchal rigidity Respiratory: normal respiratory effort and + labored breathing (w/ leaning forward/back for exam) Auscultation: lungs clear to auscultation bilaterally (no cough) and + diminished lung sounds (markedly) Cardiovascular: Rate/Rhythm: regular rate and regular rhythm Extremities: + edema (2-3+) Gastrointestinal (Abdomen): Inspection/Auscultation: normal bowel sounds P ercussion/Palpation: abdomen soft; abdomen nontender Musculoskeletal: Extremities: strength 5/5 throughout Psychiatric: Orientation: alert and oriented x 3 Results & Data Vital Signs (Past 12 Hours) Vital Signs Temp Pulse Pulse Resp BP BP Pulse Ox 06/19/23 12:37 36.5 C 62 17 103/63 98 06/19/23 08:52 36.4 C L 61 17 105/63 98 06/19/23 07:01 62 06/19/23 03:50 36.5 C 63 18 107/63 99 O2 Del Method 06/19/23 12:37 Room Air 06/19/23 08:52 Room Air 06/19/23 07:01 06/19/23 03:50 Room Air Laboratory Results 06/19/23 05:16 06/19/23 05:16
[2023-06-19] MEDS: POTASSIUM CHLORIDE CRTAB 20 MEQ TABCR PO SCH (15:52)
[2023-06-19] MEDS: FUROSEMIDE INJ 20 MG/2 ML VIAL IV SCH (15:52)
[2023-06-19] MEDS ORDERED: WARFARIN SOD 6 MG TAB PO SCH (16:00)
--- NOTE | 2023-06-19 17:38 | Hospitalist Progress Note ---
Date of Service June 19, 2023 Assessment & Plan (1) Cellulitis of leg, right: Plan: (1) Cellulitis of leg, right: (2) Hx MRSA infection: (3) Diabetic ulcer of right foot: (4) Diabetes type 2, controlled: (5) Atrial fibrillation: (6) Peripheral arterial disease: (7) Hypertension: (8) CVA (cerebral vascular accident): (9) Dyslipidemia: (10) Pacemaker: (11) Tachy-geronimo syndrome: (12) Acute kidney injury superimposed on chronic kidney disease: Plan per admitting service notes with addendum: 72 year old male with RLE cellulitis with IV abx including Dapto + Vanco given patient MRSA history and taking into consideration worsening kidney function, Infectious Disease input, WOCN consult, PT/OT and possible imaging to r/o osteo if no improvement. Will also monitor kidney function and seek consult from Nephrology. Will continue IV fluids for now and recheck BMP later this afternoon. Hold Nephrotoxic agents and replace Mg+. PT/OT pending any rehab placement needs. # Cellulitis: Non-healing ulcers: Acute Leukocytosis 13.51 Procalcitonin 10.4, lactate normal Blood cultures and UA obtained in ED Troponin 31.1; suspect ischemic demand rather than ACS Started on Zosyn plus Vanco in ED; Will adjust to Zosyn + Dapto for now given history of MRSA and keeping in mind nephrotoxicity Recheck MRSA screen Doppler US negative for DVT WOCN placed ID consult placed Consider CT RLE given history of Osteomyelitis when creatinine resolves; hold on imaging for now PT/OT for possible rehab needs 06/14 blood cultures: pending ID consulted, awaiting final recommendations currently on Dapto + Zosyn 06/[address] lower extremity, foot ordered Continue daptomycin plus Zosyn 06/16 Afebrile Still having significant erythema over the area Blood cultures: Negative Continue daptomycin plus Zosyn ID service consulted 06/17 Slow healing of the cellulitis noted Likely secondary to underlying significant lower extremity edema from acute renal failure Blood cultures negative Continue IV daptomycin plus Zosyn ID service on board Will also consult podiatry service for evaluation of right foot plantar ulcers 06/18 discussed with nephrology service Will start trial of Lasix today to address lower extremity edema and hopefully aid with resolution of the cellulitis Continue IV antibiotics for now UTI Urine culture: Staph species, Enterococcus faecalis Continue daptomycin IV #: JORGE on CKD Acute Serum creatinine 3.16; baseline 1.4-1.7 crea continues to increase, currently 5.0 Nephro consulted If without improvement, hemodialysis being contemplated #: Hypomagnesemia: Acute resolved #: HFrEF: Chronic Last ECHO 09/2022; normal LV wall motion, mildly concentric. EF 55-59%, mild MR, mild pHTN Takes Lasix 20 mg PRN based on weight; no recent weight fluctuations Took Lasix 40 mg PO on Monday. CXR negative for acute cardiopulmonary disease and no signs of pulmonary congestion Lungs CTA on exam 06/18 (+) gr 2 lower ext edema Echocardiogram: EF 55 to 60%, mild concentric LVH, left atrium severely dilated, aortic valve sclerosis moderate, without significant aortic valve stenosis, mild mitral regurg, mild to moderate tricuspid regurg, estimated pulmonary artery pressure is 49 mmHg trial of Lasix IV # Atrial Fibrillation: Chronic Takes Coumadin INR 2.5 Takes Metoprolol; continue 06/15 INR increasing, today 6.2 Hold Coumadin Hold aspirin Will order 1 dose of vitamin K 2.5 mg p.o. INR daily 06/17 INR 4.7 06/18 INR 3.5 #: HTN: Chronic takes Losartan; hold for now given JORGE Blood pressure on the lower side Has been receiving as needed low-volume IV NSS boluses Midodrine started # CAD: S/P Pacemaker: Chronic Pacer exchange a few weeks ago Follows with Dr. Carpenter with Cardiology monitor in Telemetry #: NIDDM Diabetes: Chronic Last A1C 6.5 on 11/2022. On Ozempic; hold while inpt A1C: 6.0 # HLD: Chronic takes Atorvastatin;hold for now while on Dapto d/t increased r/o rhabdo # BPH: Chronic. Takes Tamsulosin; continue Disposition: PCP: Dr. Jocelyne Desai COde status: Full VTE Prophylaxis: INR > 3, coumadin held Admission and Anticipated Discharge Date Admission Date: June 14, 2023 Subjective Follow-up for acute renal failure, right lower extremity cellulitis, etc. Seen resting in bedside chair, comfortable, not in distress States he feels okay overall Has some mild dyspnea with exertion Mild discomfort of right lower extremity No other new symptoms Review of Systems Review of Systems: all noted and negative except for above Physical Exam Physical Exam: General- oriented x 3, not in distress, speaks in sentences with no effort or accessory muscle use Eyes- anicteric Neck- no JVD Lungs- clear breath sounds bilaterally, No crackles or wheezes Heart- normal rate, regular rhythm; no murmurs Abdomen- normal bowel sounds, nondistended, soft, nontender Extremities-Bilateral grade 2 lower extremity edema Positive significant erythema on the right lower extremity Neuro- alert, oriented x 3; no gross focal neurologic deficits Skin- warm & dry Results & Data Results & Data Vital Signs (Past 12 Hours) Vital Signs Temp Pulse Pulse Resp BP BP Pulse Ox 06/19/23 15:26 60 06/19/23 14:43 36.1 C L 60 16 106/66 98 06/19/23 12:37 36.5 C 62 17 103/63 98 06/19/23 08:52 36.4 C L 61 17 105/63 98 06/19/23 07:01 62 O2 Del Method 06/19/23 15:26 06/19/23 14:43 Room Air 06/19/23 12:37 Room Air 06/19/23 08:52 Room Air 06/19/23 07:01 all noted and reviewed including below
[2023-06-20 07:32] LABS: Hematocrit (blood only) 27.5 % (42.0-52.0); Hemoglobin 9.2 g/dl (14.0-18.0); Mean Corpuscular Hemoglobin 29.2 pg (25.0-34.0); Mean Corpuscular Hgb Conc 33.5 g/dL (32.0-36.0); Mean Corpuscular Volume 87.3 fL (80.0-100.0); Mean Platelet Volume 10.8 fL (9.4-12.4); Platelet Count 185 K/uL (130-400); RDW Coefficient of Variation 14.6 % (11.5-14.5); RDW Standard Deviation 46.9 fL (36.4-46.3); Red Blood Count 3.15 M/uL (4.70-6.10); White Blood Count 4.56 K/ul (4.8-10.8)
[2023-06-20 07:37] LABS: INR 3.1 (0.9-1.1); Prothrombin Time 30.5 Seconds (9.0-12.0)
[2023-06-20 08:00] LABS: Basophils # (auto) 0.01 K/uL (0.00-0.20); Basophils % (auto) 0.2 %; Echinocytes 1+; Eosinophils # (auto) 0.11 K/uL (0.00-0.50); Eosinophils % (auto) 2.4 %; Immature Granulocytes # (auto) 0.03 K/uL (0.01-0.20); Immature Granulocytes % (auto) 0.7 %; Lymphocytes # (auto) 0.68 K/uL (1.20-3.40); Lymphocytes % (auto) 14.9 %; Monocytes # (auto) 0.42 K/uL (0.11-0.59); Monocytes % (auto) 9.2 %; Neutrophils # (auto) 3.31 K/uL (1.40-6.50); Neutrophils % (auto) 72.6 %; Ovalocytes 1+; Polychromasia 1+
[2023-06-20 08:06] LABS: BUN Creatinine Ratio 15.9 (10-20); Calcium 7.4 mg/dl (8.6-10.3); Creatinine Clr Calc Pharmacy 17.8 ml/min; Est GFR (African American) 12.5 ml/min; Est GFR (Non-African American) 10.8 ml/min; Potassium 4.4 mmol/L (3.5-5.1)
--- NOTE | 2023-06-20 12:16 | Nephrology Progress Note ---
Date of Service June 20, 2023 Assessment & Plan (1) Acute kidney injury superimposed on chronic kidney disease: Plan: plateau'd now stage 3 nonoliguric JORGE on baseline proteinuric CKD 3B. favor ischemic ATN but could also be superimposed glomerular process marked worsening of Proteinuric CKD 3 from DM, HTN and also hx of recurrent cellulitis since at least 09/2022 -- baseline 1.7. historically w/ 1-2 gm proteinuria since at least 2017 w/ negative serologic w/u 2018. 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 and w/ extensive cardiovascular hx > PVD, CAD, DM > overall renal prx is poor. Creat 3.2 on 06/13 presentation, peaked at 5.1 on 06/17, plateau'd there ever since. Blood cxs negative; urine grew Staph aureus and enterococcus; no wound cxs. urine sediment is active w/ granular casts, 2+ blood and protein and leukocyte esterase, also trace ketones. only the casts are new on review of prior urine specimens. His BP has been consistently low this admission; renal u/s negative hoping w/ plateau in rise he will gradually improve; however cannot r/o need for dialysis and/or renal biopsy. will know more in the coming days. for now no major electrolyte issues, though he does have an anion gap metabolic acidosis, mild hypokalemia, mild hyponatremia avoid nephrotoxic agents. -Hold losartan, NSAIDS, contrast agents. -I and O charting, strict. -Daily CBC and renal panel. >cont midodrine to 2.5 mg tid >started lasix late 06/18 and 06/19 intensified to 40 mg IV tid >standing weights ordered -ESR 66 which is somewhat reassuring no GN but far from definitive; HCV was negative in 09/2022 >f/u pending glomerular studies related to his recurrent infections potentially > multiple send out labs pending > complement, cryoglobulins, hep B SAg/SAb, anti histone ab, anca, spep, urine CASSIDY, k/lambda; doing 24 hr urine for CASSIDY (2) Cellulitis of leg, right: Plan: continue dapto, zosyn fluid status is limiting healing Admission and Anticipated Discharge Date Admission Date: June 14, 2023 Subjective pt seen and evaulated on midday rounds. no interval events feels edema a bit better. some consternatino I'd not updated him about tighter FR before imposing Review of Systems 2 Review of Systems: All systems reviewed & are unremarkable except as noted in Subjective Physical Exam 2 Constitutional: well developed, + frail appearing (sitting up on RA in bed) and cooperative; no acute distress Eyes: EOM intact bilaterally ENMT: Ears: no external ear abnormality Nose: no external nose abnormality Mouth: + dry oral mucous membranes Neck: no nuchal rigidity Respiratory: normal respiratory effort and + labored breathing (w/ leaning forward/back for exam) Auscultation: lungs clear to auscultation bilaterally (no cough) and + diminished lung sounds (markedly) Cardiovascular: Rate/Rhythm: regular rate and regular rhythm Extremities: + edema (2-3+; ? slightly better) Gastrointestinal (Abdomen): Inspection/Auscultation: normal bowel sounds P ercussion/Palpation: abdomen soft; abdomen nontender Musculoskeletal: Extremities: strength 5/5 throughout Psychiatric: Orientation: alert and oriented x 3 Results & Data Vital Signs (Past 12 Hours) Vital Signs Temp Pulse Pulse Resp BP BP Pulse Ox 06/20/23 11:30 36.6 C 65 18 111/65 97 06/20/23 07:31 36.8 C 60 18 98/60 L 97 06/20/23 07:08 60 06/20/23 03:30 36.6 C 72 18 109/66 98 O2 Del Method 06/20/23 11:30 Room Air 06/20/23 07:31 Room Air 06/20/23 07:08 06/20/23 03:30 Room Air Laboratory Results 06/20/23 07:11 06/20/23 07:11
[2023-06-20] MEDS: FUROSEMIDE 40 MG/4 ML VIAL IV SCH (12:40)
--- NOTE | 2023-06-20 18:56 | Hospitalist Progress Note ---
Date of Service June 20, 2023 Assessment & Plan (1) Cellulitis of leg, right: Plan: (1) Cellulitis of leg, right: (2) Hx MRSA infection: (3) Diabetic ulcer of right foot: (4) Diabetes type 2, controlled: (5) Atrial fibrillation: (6) Peripheral arterial disease: (7) Hypertension: (8) CVA (cerebral vascular accident): (9) Dyslipidemia: (10) Pacemaker: (11) Tachy-geronimo syndrome: (12) Acute kidney injury superimposed on chronic kidney disease: Plan per admitting service notes with addendum: 72 year old male with RLE cellulitis with IV abx including Dapto + Vanco given patient MRSA history and taking into consideration worsening kidney function, Infectious Disease input, WOCN consult, PT/OT and possible imaging to r/o osteo if no improvement. Will also monitor kidney function and seek consult from Nephrology. Will continue IV fluids for now and recheck BMP later this afternoon. Hold Nephrotoxic agents and replace Mg+. PT/OT pending any rehab placement needs. # Cellulitis: Non-healing ulcers: Acute Leukocytosis 13.51 Procalcitonin 10.4, lactate normal Blood cultures and UA obtained in ED ID consult placed Blood cultures: Negative Slow healing of the cellulitis noted on Dapto + Zosyn ID consulted slow healing Likely secondary to underlying significant lower extremity edema from acute renal failure Lasix IV started yesterday continue to monitor closely UTI Urine culture: Staph species, Enterococcus faecalis Continue daptomycin IV #: JORGE on CKD Acute Serum creatinine 3.16; baseline 1.4-1.7 crea seems to have plateaued to 4.9-5.0 Nephro consulted If without improvement, hemodialysis being contemplated #: Hypomagnesemia: Acute resolved #: HFrEF: Chronic Last ECHO 09/2022; normal LV wall motion, mildly concentric. EF 55-59%, mild MR, mild pHTN Takes Lasix 20 mg PRN based on weight; no recent weight fluctuations Took Lasix 40 mg PO on Monday. CXR negative for acute cardiopulmonary disease and no signs of pulmonary congestion Lungs CTA on exam 06/19 (+) gr 2 lower ext edema Echocardiogram: EF 55 to 60%, mild concentric LVH, left atrium severely dilated, aortic valve sclerosis moderate, without significant aortic valve stenosis, mild mitral regurg, mild to moderate tricuspid regurg, estimated pulmonary artery pressure is 49 mmHg trial of Lasix IV # Atrial Fibrillation: Chronic Takes Coumadin given Vit K as INR steadily increasing, up to 6 INR trending down, now 3.1 Takes Metoprolol; continue #: HTN: Chronic takes Losartan; hold for now given JORGE Blood pressure on the lower side Midodrine started # CAD: S/P Pacemaker: Chronic Pacer exchange a few weeks ago Follows with Dr. Carpenter with Cardiology monitor in Telemetry #: NIDDM Diabetes: Chronic Last A1C 6.5 on 11/2022. On Ozempic; hold while inpt A1C: 6.0 # HLD: Chronic takes Atorvastatin;hold for now while on Dapto d/t increased r/o rhabdo # BPH: Chronic. Takes Tamsulosin; continue Disposition: PCP: Dr. Jocelyne Desai COde status: Full VTE Prophylaxis: INR > 3, coumadin held lives at home with family may need acute rehab Admission and Anticipated Discharge Date Admission Date: June 14, 2023 Subjective ff up for RLE cellulitis, acute renal failure on CKD, etc seen resting in bed, comfortable states he feels ok overall breathing is ok no chest pain RLE discomfort well controlled no other symptoms Review of Systems Review of Systems: all noted and negative except for above Physical Exam Physical Exam: General- oriented x 3, not in distress, speaks in sentences with no effort or accessory muscle use Eyes- anicteric Neck- no JVD Lungs- clear breath sounds bilaterally, no rales/wheezes Heart- normal rate, regular rhythm; no murmurs Abdomen- normal bowel sounds, nondistended, soft, nontender Extremities- Gr 2 LE edema R lower leg with erythema, some seepage Neuro- alert, oriented x 3; no gross focal neurologic deficits Skin- warm & dry Results & Data Results & Data Vital Signs (Past 12 Hours) Vital Signs Temp Pulse Pulse Resp BP Pulse Ox O2 Del Method 06/20/23 15:14 62 06/20/23 15:10 36.8 C 65 18 107/64 98 Room Air 06/20/23 11:30 36.6 C 65 18 111/65 97 Room Air 06/20/23 07:31 36.8 C 60 18 98/60 L 97 Room Air 06/20/23 07:08 60 all noted and reviewed including below
[2023-06-21 07:02] LABS: BUN Creatinine Ratio 14.5 (10-20); Calcium 7.4 mg/dl (8.6-10.3); Creatinine Clr Calc Pharmacy 17.3 ml/min; Est GFR (African American) 12.1 ml/min; Est GFR (Non-African American) 10.4 ml/min; Potassium 4.1 mmol/L (3.5-5.1)
[2023-06-21 08:17] LABS: Abnormal Protein Band 1 DNR mg/24 h (NONE DETECTED); Abnormal Protein Band 2 DNR mg/24 h (NONE DETECTED); Abnormal Protein Band 3 DNR mg/24 h (NONE DETECTED); Creatinine, 24 hr Urine 0.72 g/24 h (0.50-2.15); Protein, Urine 24 Hour 896 mg/24 h (<150); Ur Protein/Creatinine Rat mg/g 1244 mg/g creat (<100); Urine Protein/Creatinine Ratio 1.244 (<0.100)
[2023-06-21 10:48] LABS: HBSAG NON-REACTIVE (NON-REACTIVE)
[2023-06-21 11:17] LABS: Anti Nuclear Antibody Screen POSITIVE (NEGATIVE)
--- NOTE | 2023-06-21 17:04 | Hospitalist Progress Note ---
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 Will also monitor kidney function and seek consult from Nephrology. Will continue IV fluids for now and recheck BMP later this afternoon. Hold Nephrotoxic agents and replace Mg+. PT/OT pending any rehab placement needs. Right leg cellulitis complicated by chronic edema Non-healing ulcers: Leukocytosis 13.51 Procalcitonin 10.4, lactate normal Blood cultures and UA obtained in ED-blood cultures have been negative Has been on intravenous daptomycin and Zosyn Wound care management ID consult placed-awaiting input and recommendation Bilateral leg edema-chronic more on the right than the left #: JORGE on CKD Serum creatinine 3.16; baseline 1.4-1.7 Crea seems to have plateaued to 4.9-5.0 Nephro consulted-appreciate input and recommendation Has been getting intravenous Lasix with improvement of the edema May need dialysis if creatinine keeps on Climbing UTI Urine culture: Staph species, Enterococcus faecalis Continue daptomycin IV #: Hypomagnesemia: Acute resolved Other significant medical conditions are stable and as documented below: #: HFrEF: Chronic Last ECHO 09/2022; normal LV wall motion, mildly concentric. EF 55-59%, mild MR, mild pHTN Takes Lasix 20 mg PRN based on weight; no recent weight fluctuations Took Lasix 40 mg PO on Monday. CXR negative for acute cardiopulmonary disease and no signs of pulmonary congestion Lungs CTA on exam # Atrial Fibrillation: Chronic Takes Coumadin given Vit K as INR steadily increasing, up to 6 INR trending down, now 3.1 Takes Metoprolol; continue #: HTN: Chronic takes Losartan; hold for now given JORGE Blood pressure on the lower side Midodrine started # CAD: S/P Pacemaker: Chronic Pacer exchange a few weeks ago Follows with Dr. Carpenter with Cardiology monitor in Telemetry #: NIDDM Diabetes: Chronic Last A1C 6.5 on 11/2022. On Ozempic; hold while inpt A1C: 6.0 # HLD: Chronic takes Atorvastatin;hold for now while on Dapto d/t increased r/o rhabdo # BPH: Chronic. Takes Tamsulosin; continue Disposition: PCP: Dr. Jocelyne Desai COde status: Full VTE Prophylaxis: INR > 3, coumadin held Lives at home with family May need acute rehab Admission and Anticipated Discharge Date Admission Date: June 14, 2023 Subjective 06/21/2023 The patient was seen and examined in medical telemetry unit He has been feeling much better Bilateral leg swelling has been improving Denies any fever and or chills Review of Systems Review of Systems: All systems reviewed and are unremarkable except as noted below Physical Exam Physical Exam: Lying in bed without any acute distress Constitutional: well developed, well nourished, + ill appearing and + obese Eyes: PERRL, conjunctivae normal, anicteric sclerae ENMT: external ear and nose normal, oropharynx normal Neck: trachea midline, no thyromegaly Respiratory: no respiratory distress Auscultation: lungs clear to auscultation bilaterally Cardiovascular: Rate/Rhythm: regular rate and regular rhythm; not tachycardic Heart Sounds: normal S1 and normal S2; no murmur Extremities: + edema (2+ edema bilaterally, more on the right than the left) Gastrointestinal (Abdomen): Inspection/Auscultation: normal bowel sounds; abdomen not distended Percussion/Palpation: + abdomen tender and abdomen soft Musculoskeletal: No acute arthritis involving any of the joints Neurologic: normal touch/pain/proprioception and moves all extremities; no focal motor deficits Lymphatic: no cervical or axillary lymphadenopathy Results & Data Results & Data Vital Signs (Past 12 Hours) Vital Signs Temp Pulse Pulse Resp BP BP Pulse Ox 06/21/23 15:17 36.4 C L 66 16 115/72 100 06/21/23 15:04 60 06/21/23 07:29 36.3 C L 61 16 113/68 97 06/21/23 07:13 60 O2 Del Method 06/21/23 15:17 Room Air 06/21/23 15:04 06/21/23 07:29 Room Air 06/21/23 07:13 Laboratory Results BMP 06/21/23 06:02 Sodium 135 L Potassium 4.1 Chloride 105 Carbon Dioxide 19 L BUN 75 H Creatinine 5.16 H* Glucose 134 H Calcium 7.4 L Medications Administered Current Inpatient Medications Acetaminophen (Acetaminophen 325 Mg Tab) 650 mg PO Q4H PRN PRN Reason: Pain or Fever Stop: 07/14/23 10:14 Last Admin: 06/18/23 13:01 Dose: 650 mg Aspirin (Aspirin 81 Mg Ectab) 81 mg PO DAILY [facility] Stop: 07/15/23 08:59 Last Admin: 06/16/23 08:02 Dose: 81 mg Atorvastatin Calcium (Atorvastatin 40 Mg Tab) 40 mg PO PM [facility] Stop: 07/14/23 20:59 Cyanocobalamin (Cyanocobalamin (B-12) 500 Mcg Tablet) 1,000 mcg PO PM [facility] Stop: 07/14/23 20:59 Last Admin: 06/20/23 20:05 Dose: 1,000 mcg Furosemide (Furosemide 40 Mg/4 Ml Vial) 40 mg IV Q6H [facility] Stop: 07/20/23 12:14 Last Admin: 06/21/23 16:34 Dose: 40 mg Daptomycin 525 mg/ Syringe 10.5 mls @ 5.25 mls/min IV Q48H [facility]; Protocol Stop: 06/23/23 20:59 Last Admin: 06/20/23 20:10 Dose: 5.25 mls/min Lactobacillus Acidophilus (Advanced Probiotic 625 Mg Capsule) 1,250 mg PO DAILY [facility] Stop: 07/17/23 08:59 Last Admin: 06/21/23 08:10 Dose: 1,250 mg Metoprolol Succinate (Metoprolol Succ 25mg Ext Rel Tab) 25 mg PO QAM [facility] Stop: 07/15/23 08:59 Last Admin: 06/21/23 08:09 Dose: 25 mg Miconazole Nitrate (Miconazole Nitrate Powder 85 Gm) 1 appln EXT PRN PRN PRN Reason: Affected Skin Folds Stop: 07/18/23 00:56 Midodrine (Midodrine Hcl 2.5 Mg Tab) 2.5 mg PO TID@0800,1200,1700 [facility] Stop: 07/18/23 17:54 Last Admin: 06/21/23 16:34 Dose: 2.5 mg Multivitamins/Folic Acid/Vitamin C (Multivitamin Chewable Tab) 1 tab PO PM [facility] Stop: 07/14/23 20:59 Last Admin: 06/20/23 20:06 Dose: 1 tab Ondansetron HCl (Ondansetron Inj 2 Mg/Ml 2 Ml Vial) 4 mg IV Q6H PRN PRN Reason: Nausea Stop: 07/14/23 10:14 Oxycodone HCl (Oxycodone Hcl Ir 5 Mg Tab (Immediate Release)) 5 - 10 mg PO QID PRN PRN Reason: Pain Stop: 06/28/23 21:42 Last Admin: 06/21/23 15:20 Dose: 10 mg Potassium Chloride (Potassium Chloride Crtab 20 Meq Tabcr) 20 meq PO BID [facility] Stop: 07/19/23 14:38 Last Admin: 06/21/23 08:04 Dose: 20 meq Senna/Docusate Sodium (Docusate Sodium/Senna 50/8.6mg Tab) 1 tab PO DAILY [facility] Stop: 07/15/23 08:59 Last Admin: 06/21/23 08:10 Dose: 1 tab Tamsulosin HCl (Tamsulosin Hcl 0.4 Mg Cap) 0.4 mg PO PM [facility] Stop: 07/14/23 20:59 Last Admin: 06/20/23 20:06 Dose: 0.4 mg Vitamin D (Cholecalciferol 25 Mcg (1000 Units) Tab) 25 mcg PO PM [facility] Stop: 07/14/23 20:59 Last Admin: 06/20/23 20:04 Dose: 25 mcg
--- NOTE | 2023-06-21 18:36 | Nephrology Progress Note ---
Date of Service June 21, 2023 Assessment & Plan (1) Acute kidney injury superimposed on chronic kidney disease: Plan: plateau'd now stage 3 nonoliguric JORGE on baseline proteinuric CKD 3B. favor ischemic ATN but could also be superimposed glomerular process marked worsening of Proteinuric CKD 3 from DM, HTN and also hx of recurrent cellulitis since at least 09/2022 -- baseline 1.7. historically w/ 1-2 gm proteinuria since at least 2017 w/ negative serologic w/u 2018. 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 and w/ extensive cardiovascular hx > PVD, CAD, DM > overall renal prx is poor. Creat 3.2 on 06/13 presentation, peaked at 5.1 on 06/17, plateau'd there ever since. Blood cxs negative; urine grew Staph aureus and enterococcus; no wound cxs. urine sediment is active w/ granular casts, 2+ blood and protein and leukocyte esterase, also trace ketones. only the casts are new on review of prior urine specimens. His BP has been consistently low this admission; renal u/s negative hoping w/ plateau in rise he will gradually improve; however cannot r/o need for dialysis and/or renal biopsy. will know more in the coming days. for now no major electrolyte issues, though he does have an anion gap metabolic acidosis, mild hypokalemia, mild hyponatremia avoid nephrotoxic agents. -Hold losartan, NSAIDS, contrast agents. -I and O charting, strict. -Daily CBC and renal panel. >cont midodrine 2.5 mg tid >started lasix late 06/18 and 06/19 intensified to 40 mg IV tid so far tolerating >standing weights ordered -ESR 66 which is somewhat reassuring no GN but far from definitive; HCV was negative in 09/2022; HBV negative; has + JULISSA but no titer/pattern, to which it is supposed to reflex > will contact lab >f/u pending glomerular studies related to his recurrent infections potentially > multiple send out labs pending > complement, cryoglobulins, hep B SAg/SAb, anti histone ab, anca, spep, urine CASSIDY, k/lambda; doing 24 hr urine for CASSIDY (2) Cellulitis of leg, right: Plan: continue dapto, zosyn fluid status is limiting healing Admission and Anticipated Discharge Date Admission Date: June 14, 2023 Subjective no interval events clinically. sarahyign continues to improve. denies sob. Review of Systems 2 Review of Systems: All systems reviewed & are unremarkable except as noted in Subjective Physical Exam 2 Constitutional: well developed, + frail appearing (sitting up on RA in bed) and cooperative; no acute distress Eyes: EOM intact bilaterally ENMT: Ears: no external ear abnormality Nose: no external nose abnormality Mouth: + dry oral mucous membranes Neck: no nuchal rigidity Respiratory: normal respiratory effort and + labored breathing (w/ leaning forward/back for exam; ? less today) Auscultation: lungs clear to auscultation bilaterally (no cough) and + diminished lung sounds (markedly) Cardiovascular: Rate/Rhythm: regular rate and regular rhythm Extremities: + edema (2+++; slightly better) Gastrointestinal (Abdomen): Inspection/Auscultation: normal bowel sounds P ercussion/Palpation: abdomen soft; abdomen nontender Musculoskeletal: Extremities: strength 5/5 throughout Psychiatric: Orientation: alert and oriented x 3 Results & Data Vital Signs (Past 12 Hours) Vital Signs Temp Pulse Pulse Resp BP BP Pulse Ox 06/21/23 15:17 36.4 C L 66 16 115/72 100 06/21/23 15:04 60 06/21/23 07:29 36.3 C L 61 16 113/68 97 06/21/23 07:13 60 O2 Del Method 06/21/23 15:17 Room Air 06/21/23 15:04 06/21/23 07:29 Room Air 06/21/23 07:13 Laboratory Results 06/20/23 07:11 06/21/23 06:02
[2023-06-22 06:53] LABS: Basophils # (auto) 0.01 K/uL (0.00-0.20); Basophils % (auto) 0.2 %; Eosinophils # (auto) 0.12 K/uL (0.00-0.50); Eosinophils % (auto) 2.2 %; Hematocrit (blood only) 28.5 % (42.0-52.0); Hemoglobin 9.4 g/dl (14.0-18.0); Immature Granulocytes # (auto) 0.03 K/uL (0.01-0.20); Immature Granulocytes % (auto) 0.5 %; Lymphocytes % (auto) 10.9 %; Mean Corpuscular Hemoglobin 28.6 pg (25.0-34.0); Mean Corpuscular Volume 86.6 fL (80.0-100.0); Mean Platelet Volume 10.6 fL (9.4-12.4); Monocytes % (auto) 9.1 %; Neutrophils # (auto) 4.24 K/uL (1.40-6.50); Neutrophils % (auto) 77.1 %; Platelet Count 253 K/uL (130-400); RDW Coefficient of Variation 14.6 % (11.5-14.5); RDW Standard Deviation 46.5 fL (36.4-46.3); Red Blood Count 3.29 M/uL (4.70-6.10)
[2023-06-22 07:23] LABS: BUN Creatinine Ratio 15.1 (10-20); Calcium 7.6 mg/dl (8.6-10.3); Est GFR (African American) 13.5 ml/min; Est GFR (Non-African American) 11.7 ml/min; Magnesium 1.7 mg/dl (1.7-2.4); Phosphorus 5.8 mg/dl (2.5-4.9); Potassium 4.4 mmol/L (3.5-5.1)
--- NOTE | 2023-06-22 11:42 | Nephrology Progress Note ---
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 favor ischemic ATN but could also be superimposed glomerular process. 1.2 gm daily proteinuria in hospital. marked worsening of Proteinuric CKD 3 from DM, HTN and also hx of recurrent cellulitis since at least 09/2022 -- baseline 1.7. historically w/ 1-2 gm proteinuria since at least 2017 w/ negative serologic w/u 2018. 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 and w/ extensive cardiovascular hx > PVD, CAD, DM > overall renal prx is poor. Creat 3.2 on 06/13 presentation, peaked at 5.1 on 06/17, plateau'd there x 3 days now down to 4.7. Blood cxs negative; urine grew Staph aureus and enterococcus; no wound cxs. urine sediment is active w/ granular casts, 2+ blood and protein and leukocyte esterase, also trace ketones. only the casts are new on review of prior urine specimens. His BP has been consistently low this admission; renal u/s negative Small improvement in renal function which will hopefully continue; however cannot r/o need for dialysis and/or renal biopsy. will know more in the coming days. for now no major electrolyte issues, though he does have an anion gap metabolic acidosis, mild hypokalemia, mild hyponatremia avoid nephrotoxic agents. -Hold losartan, NSAIDS, contrast agents. -I and O charting, strict. -Daily CBC and renal panel. >cont midodrine 2.5 mg tid >started lasix late 06/18 and 06/19 intensified to 40 mg IV tid so far tolerating and should continue >standing weights ordered -ESR 66 which is somewhat reassuring no GN but far from definitive; HCV was negative in 09/2022; HBV negative; has + JULISSA 1:80 type A (rare in connective tissue disorders). UPEP/UIFE is negative. >f/u pending glomerular studies related to his recurrent infections potentially > multiple send out labs pending > complement, cryoglobulins, anti histone ab, anca, spep, urine CASSIDY, k/lambda (2) Cellulitis of leg, right: Plan: continue dapto, zosyn fluid status is limiting healing Admission and Anticipated Discharge Date Admission Date: June 14, 2023 Subjective no interval events. pt seen midday. he's feeling more tired today. edema definitely improved. he worked w/ PT today but could move only to doorway before fatigue stopped him; yesterday was able to get down [place] Review of Systems 2 Review of Systems: All systems reviewed & are unremarkable except as noted in Subjective Physical Exam 2 Constitutional: well developed, + frail appearing (sitting up on RA in bed) and cooperative; no acute distress Eyes: EOM intact bilaterally ENMT: Ears: no external ear abnormality Nose: no external nose abnormality Mouth: + dry oral mucous membranes Neck: no nuchal rigidity Respiratory: normal respiratory effort and + labored breathing (w/ leaning forward/back for exam and even at rest) Auscultation: lungs clear to auscultation bilaterally (no cough) and + diminished lung sounds (markedly) Cardiovascular: Rate/Rhythm: regular rate and regular rhythm Extremities: + edema (2+; much better) Gastrointestinal (Abdomen): Inspection/Auscultation: normal bowel sounds P ercussion/Palpation: abdomen soft; abdomen nontender Musculoskeletal: Extremities: strength 5/5 throughout Psychiatric: Orientation: alert and oriented x 3 Results & Data Vital Signs (Past 12 Hours) Vital Signs Temp Pulse Pulse Resp BP BP Pulse Ox 06/22/23 07:49 36.5 C 60 16 119/70 97 06/22/23 07:29 60 06/22/23 03:42 36.6 C 62 18 116/65 97 06/22/23 00:20 36.4 C L 62 18 121/70 98 06/21/23 23:45 67 O2 Del Method 06/22/23 07:49 Room Air 06/22/23 07:29 06/22/23 03:42 Room Air 06/22/23 00:20 Room Air 06/21/23 23:45 Laboratory Results 06/22/23 06:15 06/22/23 06:15
--- NOTE | 2023-06-22 17:22 | Hospitalist Progress Note ---
Date of Service June 22, 2023 Assessment & Plan (1) Cellulitis of leg, right: Plan: (1) Cellulitis of leg, right: (2) Hx MRSA infection: (3) Diabetic ulcer of right foot: (4) Diabetes type 2, controlled: (5) Atrial fibrillation: (6) Peripheral arterial disease: (7) Hypertension: (8) CVA (cerebral vascular accident): (9) Dyslipidemia: (10) Pacemaker: (11) Tachy-geronimo syndrome: (12) Acute kidney injury superimposed on chronic kidney disease: Plan per admitting service notes with addendum: 72 year old male with RLE cellulitis with IV abx including Dapto + Vanco given patient MRSA history and taking into consideration worsening kidney function, Infectious Disease input, WOCN consult, PT/OT and possible imaging to r/o osteo if no improvement. Will also monitor kidney function and seek consult from Nephrology. Will continue IV fluids for now and recheck BMP later this afternoon. Hold Nephrotoxic agents and replace Mg+. PT/OT pending any rehab placement needs. Right leg cellulitis complicated by chronic edema Non-healing ulcers: Leukocytosis 13.51 Procalcitonin 10.4, lactate normal Blood cultures and UA obtained in ED-blood cultures have been negative Has been on intravenous daptomycin and Zosyn Wound care management ID consult placed-awaiting input and recommendation Still awaiting ID recommendation Bilateral leg edema-chronic more on the right than the left #: JORGE on CKD Serum creatinine 3.16; baseline 1.4-1.7 Crea seems to have plateaued to 4.9-5.0 Nephro consulted-appreciate input and recommendation Has been getting intravenous Lasix with improvement of the edema May need dialysis if creatinine keeps on Climbing Creatinine remained stable as of today with a negative balance of 1300 mL UTI Urine culture: Staph species, Enterococcus faecalis Continue daptomycin IV Will continue current antibiotic #: Hypomagnesemia: Acute resolved Other significant medical conditions are stable and as documented below: #: HFrEF: Chronic Last ECHO 09/2022; normal LV wall motion, mildly concentric. EF 55-59%, mild MR, mild pHTN Takes Lasix 20 mg PRN based on weight; no recent weight fluctuations Took Lasix 40 mg PO on Monday. CXR negative for acute cardiopulmonary disease and no signs of pulmonary congestion # Atrial Fibrillation: Chronic Takes Coumadin given Vit K as INR steadily increasing, up to 6 INR trending down, now 3.1 Takes Metoprolol; continue #: HTN: Chronic takes Losartan; hold for now given JORGE Blood pressure on the lower side Midodrine started # CAD: S/P Pacemaker: Chronic Pacer exchange a few weeks ago Follows with Dr. Carpenter with Cardiology monitor in Telemetry #: NIDDM Diabetes: Chronic Last A1C 6.5 on 11/2022. On Ozempic; hold while inpt A1C: 6.0 # HLD: Chronic takes Atorvastatin;hold for now while on Dapto d/t increased r/o rhabdo # BPH: Chronic. Takes Tamsulosin; continue Disposition: PCP: Dr. Jocelyne Desai COde status: Full VTE Prophylaxis: INR > 3, coumadin held Lives at home with family May need acute rehab Admission and Anticipated Discharge Date Admission Date: June 14, 2023 Subjective 06/21/2023 The patient was seen and examined in medical telemetry unit He has been feeling much better Bilateral leg swelling has been improving Denies any fever and or chills 06/22/2023 The patient was seen and examined in medical telemetry He has been feeling much better Legs are better with decreasing swelling And have diuresis with negative balance of more than 1 L Has been getting physical therapy Review of Systems Review of Systems: All systems reviewed and are unremarkable except as noted below Physical Exam Physical Exam: Lying in bed without any acute distress Constitutional: well developed, well nourished, + ill appearing and + obese Eyes: PERRL, conjunctivae normal, anicteric sclerae ENMT: external ear and nose normal, oropharynx normal Neck: trachea midline, no thyromegaly Respiratory: no respiratory distress Auscultation: lungs clear to auscultation bilaterally Cardiovascular: Rate/Rhythm: regular rate and regular rhythm; not tachycardic Heart Sounds: normal S1 and normal S2; no murmur Extremities: + edema (2+ edema bilaterally, more on the right than the left) Gastrointestinal (Abdomen): Inspection/Auscultation: normal bowel sounds; abdomen not distended Percussion/Palpation: + abdomen tender and abdomen soft Musculoskeletal: Pain with movement of the right lower extremity Neurologic: normal touch/pain/proprioception and moves all extremities; no focal motor deficits Lymphatic: no cervical or axillary lymphadenopathy Results & Data Results & Data Vital Signs (Past 12 Hours) Vital Signs Temp Pulse Pulse Resp BP Pulse Ox O2 Del Method 06/22/23 15:59 36.8 C 77 16 107/61 96 Room Air 06/22/23 15:50 63 06/22/23 12:03 36.7 C 65 17 131/71 98 Room Air 06/22/23 07:49 36.5 C 60 16 119/70 97 Room Air 06/22/23 07:29 60 Laboratory Results Short CBC 06/22/23 Range/Units 06:15 WBC 5.50 (4.8-10.8) K/ul Hgb 9.4 L (14.0-18.0) g/dl Hct 28.5 L (42.0-52.0) % Plt Count 253 (130-400) K/uL BMP 06/22/23 06:15 Sodium 137 Potassium 4.4 Chloride 106 Carbon Dioxide 21 BUN 71 H Creatinine 4.70 H* D Glucose 121 H Calcium 7.6 L Medications Administered Current Inpatient Medications Acetaminophen (Acetaminophen 325 Mg Tab) 650 mg PO Q4H PRN PRN Reason: Pain or Fever Stop: 07/14/23 10:14 Last Admin: 06/22/23 11:50 Dose: 650 mg Aspirin (Aspirin 81 Mg Ectab) 81 mg PO DAILY COOKIE Stop: 07/15/23 08:59 Last Admin: 06/16/23 08:02 Dose: 81 mg Atorvastatin Calcium (Atorvastatin 40 Mg Tab) 40 mg PO PM COOKIE Stop: 07/14/23 20:59 Cyanocobalamin (Cyanocobalamin (B-12) 500 Mcg Tablet) 1,000 mcg PO PM COOKIE Stop: 07/14/23 20:59 Last Admin: 06/21/23 20:04 Dose: 1,000 mcg Furosemide (Furosemide 40 Mg/4 Ml Vial) 40 mg IV Q6H [facility]IE Stop: 07/20/23 12:14 Last Admin: 06/22/23 13:16 Dose: 40 mg Daptomycin 525 mg/ Syringe 10.5 mls @ 5.25 mls/min IV Q48H [facility]; Protocol Stop: 06/23/23 20:59 Last Admin: 06/20/23 20:10 Dose: 5.25 mls/min Lactobacillus Acidophilus (Advanced Probiotic 625 Mg Capsule) 1,250 mg PO DAILY COOKIE Stop: 07/17/23 08:59 Last Admin: 06/22/23 09:32 Dose: 1,250 mg Metoprolol Succinate (Metoprolol Succ 25mg Ext Rel Tab) 25 mg PO QAM [facility]IE Stop: 07/15/23 08:59 Last Admin: 06/22/23 09:32 Dose: 25 mg Miconazole Nitrate (Miconazole Nitrate Powder 85 Gm) 1 appln EXT PRN PRN PRN Reason: Affected Skin Folds Stop: 07/18/23 00:56 Midodrine (Midodrine Hcl 2.5 Mg Tab) 2.5 mg PO TID@0800,1200,1700 COOKIE Stop: 07/18/23 17:54 Last Admin: 06/22/23 13:16 Dose: 2.5 mg Multivitamins/Folic Acid/Vitamin C (Multivitamin Chewable Tab) 1 tab PO PM COOKIE Stop: 07/14/23 20:59 Last Admin: 06/21/23 20:04 Dose: 1 tab Ondansetron HCl (Ondansetron Inj 2 Mg/Ml 2 Ml Vial) 4 mg IV Q6H PRN PRN Reason: Nausea Stop: 07/14/23 10:14 Oxycodone HCl (Oxycodone Hcl Ir 5 Mg Tab (Immediate Release)) 5 - 10 mg PO QID PRN PRN Reason: Pain Stop: 06/28/23 21:42 Last Admin: 06/22/23 09:47 Dose: 5 mg Potassium Chloride (Potassium Chloride Crtab 20 Meq Tabcr) 20 meq PO BID C[facility]IE Stop: 07/19/23 14:38 Last Admin: 06/22/23 09:32 Dose: 20 meq Senna/Docusate Sodium (Docusate Sodium/Senna 50/8.6mg Tab) 1 tab PO DAILY COOKIE Stop: 07/15/23 08:59 Last Admin: 06/22/23 09:32 Dose: 1 tab Tamsulosin HCl (Tamsulosin Hcl 0.4 Mg Cap) 0.4 mg PO PM COOKIE Stop: 07/14/23 20:59 Last Admin: 06/21/23 20:03 Dose: 0.4 mg Vitamin D (Cholecalciferol 25 Mcg (1000 Units) Tab) 25 mcg PO PM COOKIE Stop: 07/14/23 20:59 Last Admin: 06/21/23 20:04 Dose: 25 mcg
[2023-06-23 06:47] LABS: BUN Creatinine Ratio 16.6 (10-20); Calcium 8.3 mg/dl (8.6-10.3); Creatinine Clr Calc Pharmacy 19.6 ml/min; Est GFR (African American) 15.4 ml/min; Est GFR (Non-African American) 13.3 ml/min; Magnesium 1.6 mg/dl (1.7-2.4); Phosphorus 5.6 mg/dl (2.5-4.9); Potassium 4.3 mmol/L (3.5-5.1)
--- NOTE | 2023-06-23 16:01 | Hospitalist Progress Note ---
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 Will also monitor kidney function and seek consult from Nephrology. Will continue IV fluids for now and recheck BMP later this afternoon. Hold Nephrotoxic agents and replace Mg+. PT/OT pending any rehab placement needs. Right leg cellulitis complicated by chronic edema Non-healing ulcers: Leukocytosis 13.51 Procalcitonin 10.4, lactate normal Blood cultures and UA obtained in ED-blood cultures have been negative Has been on intravenous daptomycin and Zosyn Wound care management ID consult placed-awaiting input and recommendation Continue with intravenous daptomycin for now Bilateral leg edema-chronic more on the right than the left #: JORGE on CKD Serum creatinine 3.16; baseline 1.4-1.7 Crea seems to have plateaued to 4.9-5.0 Nephro consulted-appreciate input and recommendation Has been getting intravenous Lasix with improvement of the edema May need dialysis if creatinine keeps on Climbing Creatinine remained stable as of today with a negative balance of 1300 mL Will continue intravenous Lasix to take out chronic edematous fluid from the legs Legs have been improving Continue PT and OT UTI Urine culture: Staph species, Enterococcus faecalis Continue daptomycin IV Will continue current antibiotic #: Hypomagnesemia: Acute resolved Other significant medical conditions are stable and as documented below: #: HFrEF: Chronic Last ECHO 09/2022; normal LV wall motion, mildly concentric. EF 55-59%, mild MR, mild pHTN Takes Lasix 20 mg PRN based on weight; no recent weight fluctuations Took Lasix 40 mg PO on Monday. CXR negative for acute cardiopulmonary disease and no signs of pulmonary congestion # Atrial Fibrillation: Chronic Takes Coumadin given Vit K as INR steadily increasing, up to 6 INR trending down, now 3.1 Takes Metoprolol; continue Rate is and INR is therapeutic at 3.1 #: HTN: Chronic takes Losartan; hold for now given JORGE Blood pressure on the lower side Midodrine started # CAD: S/P Pacemaker: Chronic Pacer exchange a few weeks ago Follows with Dr. Carpenter with Cardiology monitor in Telemetry #: NIDDM Diabetes: Chronic Last A1C 6.5 on 11/2022. On Ozempic; hold while inpt A1C: 6.0 # HLD: Chronic takes Atorvastatin;hold for now while on Dapto d/t increased r/o rhabdo # BPH: Chronic. Takes Tamsulosin; continue Disposition: PCP: Dr. Jocelyne Desai COde status: Full VTE Prophylaxis: INR > 3, coumadin held Lives at home with family May need acute rehab Admission and Anticipated Discharge Date Admission Date: June 14, 2023 Subjective 06/21/2023 The patient was seen and examined in medical telemetry unit He has been feeling much better Bilateral leg swelling has been improving Denies any fever and or chills 06/22/2023 The patient was seen and examined in medical telemetry He has been feeling much better Legs are better with decreasing swelling And have diuresis with negative balance of more than 1 L Has been getting physical therapy 06/23/2023 The patient was seen and examined in medical telemetry unit He has been feeling much better Swelling of the leg has improved Has been diuresing without any significant deterioration of kidney function Review of Systems Review of Systems: All systems reviewed and are unremarkable except as noted below Physical Exam 2 Physical Exam: Lying in bed without any acute distress Constitutional: well developed, well nourished, + ill appearing and + obese Eyes: PERRL, conjunctivae normal, anicteric sclerae ENMT: external ear and nose normal, oropharynx normal Neck: trachea midline, no thyromegaly Respiratory: no respiratory distress Auscultation: lungs clear to auscultation bilaterally Cardiovascular: Rate/Rhythm: regular rate and regular rhythm; not tachycardic Heart Sounds: normal S1 and normal S2; no murmur Extremities: + edema (2+ edema bilaterally, more on the right than the left) Gastrointestinal (Abdomen): Inspection/Auscultation: normal bowel sounds; abdomen not distended Percussion/Palpation: + abdomen tender and abdomen soft Musculoskeletal: More pain with movement Neurologic: normal touch/pain/proprioception and moves all extremities; no focal motor deficits Lymphatic: no cervical or axillary lymphadenopathy Results & Data Results & Data Vital Signs (Past 12 Hours) Vital Signs Temp Pulse Pulse Resp BP Pulse Ox O2 Del Method 06/23/23 15:37 36.9 C 59 L 17 118/67 98 Room Air 06/23/23 11:43 37.2 C 60 18 103/62 95 Room Air 06/23/23 07:44 36.7 C 61 17 118/67 97 Room Air 06/23/23 07:21 60 Laboratory Results [facility] 06/23/23 06:05 Sodium 138 Potassium 4.3 Chloride 104 Carbon Dioxide 23 BUN 70 H Creatinine 4.22 H D Glucose 120 H Calcium 8.3 L Medications Administered Current Inpatient Medications Acetaminophen (Acetaminophen 325 Mg Tab) 650 mg PO Q4H PRN PRN Reason: Pain or Fever Stop: 07/14/23 10:14 Last Admin: 06/22/23 11:50 Dose: 650 mg Aspirin (Aspirin 81 Mg Ectab) 81 mg PO DAILY COOKIE Stop: 07/15/23 08:59 Last Admin: 06/16/23 08:02 Dose: 81 mg Atorvastatin Calcium (Atorvastatin 40 Mg Tab) 40 mg PO PM COOKIE Stop: 07/14/23 20:59 Cyanocobalamin (Cyanocobalamin (B-12) 500 Mcg Tablet) 1,000 mcg PO PM COOKIE Stop: 07/14/23 20:59 Last Admin: 06/22/23 20:22 Dose: 1,000 mcg Furosemide (Furosemide 40 Mg/4 Ml Vial) 40 mg IV Q6H [facility] Stop: 07/20/23 12:14 Last Admin: 06/23/23 12:07 Dose: 40 mg Daptomycin 525 mg/ Syringe 10.5 mls @ 5.25 mls/min IV Q48H [facility]; Protocol Stop: 06/23/23 20:59 Last Admin: 06/22/23 20:25 Dose: 5.25 mls/min Lactobacillus Acidophilus (Advanced Probiotic 625 Mg Capsule) 1,250 mg PO DAILY COOKIE Stop: 07/17/23 08:59 Last Admin: 06/23/23 09:16 Dose: 1,250 mg Metoprolol Succinate (Metoprolol Succ 25mg Ext Rel Tab) 25 mg PO QAM [facility] Stop: 07/15/23 08:59 Last Admin: 06/23/23 09:16 Dose: 25 mg Miconazole Nitrate (Miconazole Nitrate Powder 85 Gm) 1 appln EXT PRN PRN PRN Reason: Affected Skin Folds Stop: 07/18/23 00:56 Midodrine (Midodrine Hcl 2.5 Mg Tab) 2.5 mg PO TID@0800,1200,1700 COOKIE Stop: 07/18/23 17:54 Last Admin: 06/23/23 12:07 Dose: 2.5 mg Multivitamins/Folic Acid/Vitamin C (Multivitamin Chewable Tab) 1 tab PO PM COOKIE Stop: 07/14/23 20:59 Last Admin: 06/22/23 20:24 Dose: 1 tab Ondansetron HCl (Ondansetron Inj 2 Mg/Ml 2 Ml Vial) 4 mg IV Q6H PRN PRN Reason: Nausea Stop: 07/14/23 10:14 Oxycodone HCl (Oxycodone Hcl Ir 5 Mg Tab (Immediate Release)) 5 - 10 mg PO QID PRN PRN Reason: Pain Stop: 06/28/23 21:42 Last Admin: 06/22/23 20:23 Dose: 10 mg Potassium Chloride (Potassium Chloride Crtab 20 Meq Tabcr) 20 meq PO BID C[facility]IE Stop: 07/19/23 14:38 Last Admin: 06/23/23 09:16 Dose: 20 meq Senna/Docusate Sodium (Docusate Sodium/Senna 50/8.6mg Tab) 1 tab PO DAILY C[facility]IE Stop: 07/15/23 08:59 Last Admin: 06/23/23 09:16 Dose: 1 tab Tamsulosin HCl (Tamsulosin Hcl 0.4 Mg Cap) 0.4 mg PO PM COOKIE Stop: 07/14/23 20:59 Last Admin: 06/22/23 20:21 Dose: 0.4 mg Vitamin D (Cholecalciferol 25 Mcg (1000 Units) Tab) 25 mcg PO PM COOKIE Stop: 07/14/23 20:59 Last Admin: 06/22/23 20:24 Dose: 25 mcg
--- NOTE | 2023-06-23 18:26 | Nephrology Progress Note ---
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 favor ischemic ATN but could also be superimposed glomerular process. 1.2 gm daily proteinuria in hospital. marked worsening of Proteinuric CKD 3 from DM, HTN and also hx of recurrent cellulitis since at least 09/2022 -- baseline 1.7. historically w/ 1-2 gm proteinuria since at least 2017 w/ negative serologic w/u 2018. 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 and w/ extensive cardiovascular hx > PVD, CAD, DM > overall renal prx is poor. Creat 3.2 on 06/13 presentation, peaked at 5.1 on 06/17, plateau'd there x 3 days now down to 4.2. Blood cxs negative; urine grew Staph aureus and enterococcus; no wound cxs. urine sediment is active w/ granular casts, 2+ blood and protein and leukocyte esterase, also trace ketones. only the casts are new on review of prior urine specimens. His BP has been consistently low this admission; renal u/s negative welcome improvement in renal function which will hopefully continue; however cannot r/o need for dialysis and/or renal biopsy. will know more in the coming days. for now no major electrolyte issues, though he does have an anion gap metabolic acidosis, mild hypokalemia, mild hyponatremia avoid nephrotoxic agents. -Hold losartan, NSAIDS, contrast agents. -I and O charting, strict. -Daily CBC and renal panel. >cont midodrine 2.5 mg tid >started lasix late 06/18 and 06/19 intensified to 40 mg IV tid so far tolerating and should continue > anticipate po diuretx next 24-48 hrs >standing weights ordered -ESR 66 which is somewhat reassuring no GN but far from definitive; HCV was negative in 09/2022; HBV negative; has + JULISSA 1:80 type A (rare in connective tissue disorders). UPEP/UIFE is negative. >f/u pending glomerular studies related to his recurrent infections potentially > multiple send out labs pending > complement, cryoglobulins, anti histone ab, anca, spep, k/lambda (2) Cellulitis of leg, right: Plan: continue dapto, zosyn fluid status is limiting healing Admission and Anticipated Discharge Date Admission Date: June 14, 2023 Subjective Seen on late afternoon rounds. Patient feeling more pain in his legs the past 2 days. Not cramps but pain at certain spots where the cellulitis is. Did not work with PT today feels edema is definitely improved and breathing somewhat improved Review of Systems 2 Review of Systems: All systems reviewed & are unremarkable except as noted in Subjective Physical Exam 2 Constitutional: well developed, + frail appearing (sitting up on RA in bed) and cooperative; no acute distress Eyes: EOM intact bilaterally ENMT: Ears: no external ear abnormality Nose: no external nose abnormality Mouth: + dry oral mucous membranes Neck: no nuchal rigidity Respiratory: normal respiratory effort Auscultation: lungs clear to auscultation bilaterally (no cough) and + diminished lung sounds (markedly) Cardiovascular: Rate/Rhythm: regular rate and regular rhythm Extremities: + edema (Trace bilateral dependent; much better) Gastrointestinal (Abdomen): Inspection/Auscultation: normal bowel sounds P ercussion/Palpation: abdomen soft; abdomen nontender Musculoskeletal: Extremities: strength 5/5 throughout Skin: Bandages oozing less Psychiatric: Orientation: alert and oriented x 3 Results & Data Vital Signs (Past 12 Hours) Vital Signs Temp Pulse Pulse Resp BP Pulse Ox O2 Del Method 06/23/23 17:51 60 06/23/23 15:37 36.9 C 59 L 17 118/67 98 Room Air 06/23/23 11:43 37.2 C 60 18 103/62 95 Room Air 06/23/23 07:44 36.7 C 61 17 118/67 97 Room Air 06/23/23 07:21 60 Laboratory Results 06/22/23 06:15 06/23/23 06:05
[2023-06-24 08:13] LABS: Hematocrit (blood only) 30.2 % (42.0-52.0); Hemoglobin 10.1 g/dl (14.0-18.0); Mean Corpuscular Hemoglobin 29.4 pg (25.0-34.0); Mean Corpuscular Hgb Conc 33.4 g/dL (32.0-36.0); Mean Corpuscular Volume 87.8 fL (80.0-100.0); Mean Platelet Volume 10.4 fL (9.4-12.4); Platelet Count 337 K/uL (130-400); RDW Coefficient of Variation 14.8 % (11.5-14.5); RDW Standard Deviation 47.5 fL (36.4-46.3); Red Blood Count 3.44 M/uL (4.70-6.10); White Blood Count 6.17 K/ul (4.8-10.8)
[2023-06-24 08:52] LABS: BUN Creatinine Ratio 18.6 (10-20); Calcium 8.5 mg/dl (8.6-10.3); Creatinine Clr Calc Pharmacy 22.4 ml/min; Est GFR (African American) 18.6 ml/min; Est GFR (Non-African American) 16.1 ml/min
--- NOTE | 2023-06-24 14:40 | Hospitalist Progress Note ---
Date of Service June 24, 2023 Assessment & Plan (1) Cellulitis of leg, right: Plan: (1) Cellulitis of leg, right: (2) Hx MRSA infection: (3) Diabetic ulcer of right foot: (4) Diabetes type 2, controlled: (5) Atrial fibrillation: (6) Peripheral arterial disease: (7) Hypertension: (8) CVA (cerebral vascular accident): (9) Dyslipidemia: (10) Pacemaker: (11) Tachy-geronimo syndrome: (12) Acute kidney injury superimposed on chronic kidney disease: Plan per admitting service notes with addendum: 72 year old male with RLE cellulitis with IV abx including Dapto + Vanco given patient MRSA history and taking into consideration worsening kidney function, Infectious Disease input, WOCN consult, PT/OT and possible imaging to r/o osteo if no improvement. Will also monitor kidney function and seek consult from Nephrology. Will continue IV fluids for now and recheck BMP later this afternoon. Hold Nephrotoxic agents and replace Mg+. PT/OT pending any rehab placement needs. Right leg cellulitis complicated by chronic edema Non-healing ulcers: Leukocytosis 13.51 Procalcitonin 10.4, lactate normal Blood cultures and UA obtained in ED-blood cultures have been negative Has been on intravenous daptomycin and Zosyn Wound care management ID consult placed-awaiting input and recommendation Continue with intravenous daptomycin for now Cellulitis of the right leg has been improving Will ask the wound care nurse to put a picture of the wound Bilateral leg edema-chronic more on the right than the left #: JORGE on CKD Serum creatinine 3.16; baseline 1.4-1.7 Crea seems to have plateaued to 4.9-5.0 Nephro consulted-appreciate input and recommendation Has been getting intravenous Lasix with improvement of the edema May need dialysis if creatinine keeps on Climbing Creatinine remained stable as of today with a negative balance of 1300 mL Will continue intravenous Lasix to take out chronic edematous fluid from the legs Legs have been improving Bilateral leg swelling has improved a lot Continue with the physical therapy UTI Urine culture: Staph species, Enterococcus faecalis Continue daptomycin IV Will continue current antibiotic Will continue IV daptomycin for now #: Hypomagnesemia: Acute resolved Other significant medical conditions are stable and as documented below: #: HFrEF: Chronic Last ECHO 09/2022; normal LV wall motion, mildly concentric. EF 55-59%, mild MR, mild pHTN Takes Lasix 20 mg PRN based on weight; no recent weight fluctuations Took Lasix 40 mg PO on Monday. CXR negative for acute cardiopulmonary disease and no signs of pulmonary congestion Has been getting intravenous Lasix and diuresing enough # Atrial Fibrillation: Chronic Takes Coumadin given Vit K as INR steadily increasing, up to 6 INR trending down, now 3.1 Takes Metoprolol; continue Rate is and INR is therapeutic at 3.1 #: HTN: Chronic takes Losartan; hold for now given JORGE Blood pressure on the lower side Midodrine started # CAD: S/P Pacemaker: Chronic Pacer exchange a few weeks ago Follows with Dr. Carpenter with Cardiology monitor in Telemetry #: NIDDM Diabetes: Chronic Last A1C 6.5 on 11/2022. On Ozempic; hold while inpt A1C: 6.0 # HLD: Chronic takes Atorvastatin;hold for now while on Dapto d/t increased r/o rhabdo # BPH: Chronic. Takes Tamsulosin; continue Disposition: PCP: Dr. Jocelyne Desai COde status: Full VTE Prophylaxis: INR > 3, coumadin held Lives at home with family May need acute rehab Admission and Anticipated Discharge Date Admission Date: June 14, 2023 Subjective 06/21/2023 The patient was seen and examined in medical telemetry unit He has been feeling much better Bilateral leg swelling has been improving Denies any fever and or chills 06/22/2023 The patient was seen and examined in medical telemetry He has been feeling much better Legs are better with decreasing swelling And have diuresis with negative balance of more than 1 L Has been getting physical therapy 06/23/2023 The patient was seen and examined in medical telemetry unit He has been feeling much better Swelling of the leg has improved Has been diuresing without any significant deterioration of kidney function 06/24/2023 The patient was seen and examined in medical telemetry He has been feeling much better Leg wounds on the right side has been improving with improvement of edema both sides Review of Systems Review of Systems: All systems reviewed and are unremarkable except as noted below Physical Exam Physical Exam: Lying in bed without any acute distress Constitutional: well developed, well nourished, + ill appearing and + obese Eyes: PERRL, conjunctivae normal, anicteric sclerae ENMT: external ear and nose normal, oropharynx normal Neck: trachea midline, no thyromegaly Respiratory: no respiratory distress Auscultation: lungs clear to auscultation bilaterally Cardiovascular: Rate/Rhythm: regular rate and regular rhythm; not tachycardic Heart Sounds: normal S1 and normal S2; no murmur Extremities: + edema (2+ edema bilaterally, more on the right than the left) Gastrointestinal (Abdomen): Inspection/Auscultation: normal bowel sounds; abdomen not distended Percussion/Palpation: + abdomen tender and abdomen soft Musculoskeletal: No acute arthritis involving any of the joints Neurologic: normal touch/pain/proprioception and moves all extremities; no focal motor deficits Lymphatic: no cervical or axillary lymphadenopathy Results & Data Results & Data Vital Signs (Past 12 Hours) Vital Signs Temp Pulse Pulse Resp BP Pulse Ox O2 Del Method 06/24/23 11:46 36.9 C 65 18 114/70 96 Room Air 06/24/23 08:00 Room Air 06/24/23 07:34 36.7 C 57 L 18 111/67 95 Room Air 06/24/23 06:48 60 Laboratory Results Short CBC 06/24/23 Range/Units 07:47 WBC 6.17 (4.8-10.8) K/ul Hgb 10.1 L (14.0-18.0) g/dl Hct 30.2 L (42.0-52.0) % Plt Count 337 (130-400) K/uL BMP 06/24/23 07:47 Sodium 137 Potassium 4.0 Chloride 101 Carbon Dioxide 26 BUN 67 H Creatinine 3.61 H D Glucose 116 H Calcium 8.5 L Medications Administered Current Inpatient Medications Acetaminophen (Acetaminophen 325 Mg Tab) 650 mg PO Q4H PRN PRN Reason: Pain or Fever Stop: 07/14/23 10:14 Last Admin: 06/23/23 19:45 Dose: 650 mg Aspirin (Aspirin 81 Mg Ectab) 81 mg PO DAILY [facility] Stop: 07/15/23 08:59 Last Admin: 06/16/23 08:02 Dose: 81 mg Atorvastatin Calcium (Atorvastatin 40 Mg Tab) 40 mg PO PM [facility] Stop: 07/14/23 20:59 Cyanocobalamin (Cyanocobalamin (B-12) 500 Mcg Tablet) 1,000 mcg PO PM [facility] Stop: 07/14/23 20:59 Last Admin: 06/23/23 19:46 Dose: 1,000 mcg Furosemide (Furosemide 40 Mg/4 Ml Vial) 40 mg IV Q6H [facility] Stop: 07/20/23 12:14 Last Admin: 06/24/23 12:13 Dose: 40 mg Daptomycin 525 mg/ Syringe 10.5 mls @ 5.25 mls/min IV Q48H [facility]; Protocol Stop: 07/01/23 20:59 Lactobacillus Acidophilus (Advanced Probiotic 625 Mg Capsule) 1,250 mg PO DAILY [facility] Stop: 07/17/23 08:59 Last Admin: 06/24/23 08:32 Dose: 1,250 mg Metoprolol Succinate (Metoprolol Succ 25mg Ext Rel Tab) 25 mg PO QAM [facility] Stop: 07/15/23 08:59 Last Admin: 06/24/23 08:32 Dose: Not Given Miconazole Nitrate (Miconazole Nitrate Powder 85 Gm) 1 appln EXT PRN PRN PRN Reason: Affected Skin Folds Stop: 07/18/23 00:56 Midodrine (Midodrine Hcl 2.5 Mg Tab) 2.5 mg PO TID@0800,1200,1700 [facility] Stop: 07/18/23 17:54 Last Admin: 06/24/23 12:13 Dose: 2.5 mg Multivitamins/Folic Acid/Vitamin C (Multivitamin Chewable Tab) 1 tab PO PM [facility] Stop: 07/14/23 20:59 Last Admin: 06/23/23 19:48 Dose: 1 tab Ondansetron HCl (Ondansetron Inj 2 Mg/Ml 2 Ml Vial) 4 mg IV Q6H PRN PRN Reason: Nausea Stop: 07/14/23 10:14 Oxycodone HCl (Oxycodone Hcl Ir 5 Mg Tab (Immediate Release)) 5 - 10 mg PO QID PRN PRN Reason: Pain Stop: 06/28/23 21:42 Last Admin: 06/24/23 10:20 Dose: 10 mg Potassium Chloride (Potassium Chloride Crtab 20 Meq Tabcr) 20 meq PO BID [facility] Stop: 07/19/23 14:38 Last Admin: 06/24/23 08:32 Dose: 20 meq Senna/Docusate Sodium (Docusate Sodium/Senna 50/8.6mg Tab) 1 tab PO DAILY [facility] Stop: 07/15/23 08:59 Last Admin: 06/24/23 08:32 Dose: 1 tab Tamsulosin HCl (Tamsulosin Hcl 0.4 Mg Cap) 0.4 mg PO PM [facility] Stop: 07/14/23 20:59 Last Admin: 06/23/23 19:47 Dose: 0.4 mg Vitamin D (Cholecalciferol 25 Mcg (1000 Units) Tab) 25 mcg PO PM [facility] Stop: 07/14/23 20:59 Last Admin: 06/23/23 19:47 Dose: 25 mcg
[2023-06-24 17:12] LABS: ANCA Screen Negative (Negative); Albumin 2.1 g/dL (3.8-4.8); Alpha 1 Globulin 0.5 g/dL (0.2-0.3); Alpha 2 Globulin 0.7 g/dL (0.5-0.9); Anti-Histone Ab <1.0 U (<1.0); Beta-1-Globulin 0.3 g/dL (0.4-0.6); Beta-2-Globulin 0.3 g/dL (0.2-0.5); Complement C3 73 mg/dL (82-185); Complement Total(CH50) >60 U/mL (31-60); Free Kappa 110.9 mg/L (3.3-19.4); Free Kappa/Lambda Ratio 1.18 (0.26-1.65); Free Lambda 93.9 mg/L (5.7-26.3); Gamma Globulin 0.9 g/dL (0.8-1.7); Monoclonal Protein Band 1 DNR g/dL (NONE DETECTED); Monoclonal Protein Band 2 DNR g/dL (NONE DETECTED); Monoclonal Protein Band 3 DNR g/dL (NONE DETECTED); Total Protein 4.8 g/dL (6.1-8.1)
[2023-06-24] MEDS: DAPTOmycin 525 MG in SYRINGE 0 ML IV SCH (20:08)
[2023-06-25 07:34] LABS: BUN Creatinine Ratio 20.5 (10-20); Calcium 8.5 mg/dl (8.6-10.3); Creatinine Clr Calc Pharmacy 24.2 ml/min; Est GFR (African American) 20.7 ml/min; Est GFR (Non-African American) 17.9 ml/min; Potassium 4.2 mmol/L (3.5-5.1)
--- NOTE | 2023-06-25 13:18 | Hospitalist Progress Note ---
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 Will also monitor kidney function and seek consult from Nephrology. Will continue IV fluids for now and recheck BMP later this afternoon. Hold Nephrotoxic agents and replace Mg+. PT/OT pending any rehab placement needs. Right leg cellulitis complicated by chronic edema Non-healing ulcers: Leukocytosis 13.51 Procalcitonin 10.4, lactate normal Blood cultures and UA obtained in ED-blood cultures have been negative Has been on intravenous daptomycin and Zosyn Wound care management ID consult placed-awaiting input and recommendation Continue with intravenous daptomycin for now Cellulitis of the right leg has been improving Will ask the wound care nurse to put a picture of the wound Clinically much better and the wound seems to be improving with decreasing swelling of the right leg Bilateral leg edema-chronic more on the right than the left #: JORGE on CKD Serum creatinine 3.16; baseline 1.4-1.7 Crea seems to have plateaued to 4.9-5.0 Nephro consulted-appreciate input and recommendation Has been getting intravenous Lasix with improvement of the edema May need dialysis if creatinine keeps on Climbing Creatinine remained stable as of today with a negative balance of 1300 mL Will continue intravenous Lasix to take out chronic edematous fluid from the legs Legs have been improving Bilateral leg swelling has improved a lot Continue with the physical therapy UTI Urine culture: Staph species, Enterococcus faecalis Continue daptomycin IV Will continue current antibiotic Will continue IV daptomycin for now Will change to oral Augmentin on discharge #: Hypomagnesemia: Acute resolved Other significant medical conditions are stable and as documented below: #: HFrEF: Chronic Last ECHO 09/2022; normal LV wall motion, mildly concentric. EF 55-59%, mild MR, mild pHTN Takes Lasix 20 mg PRN based on weight; no recent weight fluctuations Took Lasix 40 mg PO on Monday. CXR negative for acute cardiopulmonary disease and no signs of pulmonary congestion Has been getting intravenous Lasix and diuresing enough # Atrial Fibrillation: Chronic Takes Coumadin given Vit K as INR steadily increasing, up to 6 INR trending down, now 3.1 Takes Metoprolol; continue Rate is and INR is therapeutic at 3.1 #: HTN: Chronic takes Losartan; hold for now given JORGE Blood pressure on the lower side Midodrine started # CAD: S/P Pacemaker: Chronic Pacer exchange a few weeks ago Follows with Dr. Carpenter with Cardiology monitor in Telemetry #: NIDDM Diabetes: Chronic Last A1C 6.5 on 11/2022. On Ozempic; hold while inpt A1C: 6.0 # HLD: Chronic takes Atorvastatin;hold for now while on Dapto d/t increased r/o rhabdo # BPH: Chronic. Takes Tamsulosin; continue Disposition: PCP: Dr. Jocelyne Desai COde status: Full VTE Prophylaxis: INR > 3, coumadin held Lives at home with family May need acute rehab Admission and Anticipated Discharge Date Admission Date: June 14, 2023 Subjective 06/21/2023 The patient was seen and examined in medical telemetry unit He has been feeling much better Bilateral leg swelling has been improving Denies any fever and or chills 06/22/2023 The patient was seen and examined in medical telemetry He has been feeling much better Legs are better with decreasing swelling And have diuresis with negative balance of more than 1 L Has been getting physical therapy 06/23/2023 The patient was seen and examined in medical telemetry unit He has been feeling much better Swelling of the leg has improved Has been diuresing without any significant deterioration of kidney function 06/24/2023 The patient was seen and examined in medical telemetry He has been feeling much better Leg wounds on the right side has been improving with improvement of edema both sides 06/25/2023 The patient was seen and examined in medical telemetry unit He has been feeling much better and diuresing enough His right leg is much improved Review of Systems Review of Systems: All systems reviewed and are unremarkable except as noted below Physical Exam Physical Exam: Lying in bed without any acute distress Constitutional: well developed, well nourished, + ill appearing and + obese Eyes: PERRL, conjunctivae normal, anicteric sclerae ENMT: external ear and nose normal, oropharynx normal Neck: trachea midline, no thyromegaly Respiratory: no respiratory distress Auscultation: lungs clear to auscultation bilaterally Cardiovascular: Rate/Rhythm: regular rate and regular rhythm; not tachycardic Heart Sounds: normal S1 and normal S2; no murmur Extremities: + edema (2+ edema bilaterally, more on the right than the left) Gastrointestinal (Abdomen): Inspection/Auscultation: normal bowel sounds; abdomen not distended Percussion/Palpation: + abdomen tender and abdomen soft Musculoskeletal: No acute arthritis involving any of the joint. Neurologic: normal touch/pain/proprioception and moves all extremities; no focal motor deficits Lymphatic: no cervical or axillary lymphadenopathy Results & Data Results & Data Vital Signs (Past 12 Hours) Vital Signs Temp Pulse Pulse Resp BP BP Pulse Ox 06/25/23 11:12 36.9 C 60 18 116/67 93 06/25/23 10:59 06/25/23 07:35 60 06/25/23 07:21 36.6 C 59 L 18 116/63 96 06/25/23 02:30 36.6 C 55 L 16 113/62 95 O2 Del Method 06/25/23 11:12 Room Air 06/25/23 10:59 Room Air 06/25/23 07:35 06/25/23 07:21 Room Air 06/25/23 02:30 Room Air Laboratory Results BMP 06/25/23 05:47 Sodium 135 L Potassium 4.2 Chloride 100 Carbon Dioxide 26 BUN 68 H Creatinine 3.31 H D Glucose 121 H Calcium 8.5 L Medications Administered Current Inpatient Medications Acetaminophen (Acetaminophen 325 Mg Tab) 650 mg PO Q4H PRN PRN Reason: Pain or Fever Stop: 07/14/23 10:14 Last Admin: 06/23/23 19:45 Dose: 650 mg Aspirin (Aspirin 81 Mg Ectab) 81 mg PO DAILY [facility] Stop: 07/15/23 08:59 Last Admin: 06/16/23 08:02 Dose: 81 mg Atorvastatin Calcium (Atorvastatin 40 Mg Tab) 40 mg PO PM [facility] Stop: 07/14/23 20:59 Cyanocobalamin (Cyanocobalamin (B-12) 500 Mcg Tablet) 1,000 mcg PO PM [facility] Stop: 07/14/23 20:59 Last Admin: 06/24/23 20:10 Dose: 1,000 mcg Furosemide (Furosemide 40 Mg/4 Ml Vial) 40 mg IV Q6H [facility] Stop: 07/20/23 12:14 Last Admin: 06/25/23 11:29 Dose: 40 mg Daptomycin 525 mg/ Syringe 10.5 mls @ 5.25 mls/min IV Q48H [facility]; Protocol Stop: 07/01/23 20:59 Last Admin: 06/24/23 20:08 Dose: 5.25 mls/min Lactobacillus Acidophilus (Advanced Probiotic 625 Mg Capsule) 1,250 mg PO DAILY [facility] Stop: 07/17/23 08:59 Last Admin: 06/25/23 08:33 Dose: 1,250 mg Metoprolol Succinate (Metoprolol Succ 25mg Ext Rel Tab) 25 mg PO QAM [facility] Stop: 07/15/23 08:59 Last Admin: 06/25/23 08:33 Dose: 25 mg Miconazole Nitrate (Miconazole Nitrate Powder 85 Gm) 1 appln EXT PRN PRN PRN Reason: Affected Skin Folds Stop: 07/18/23 00:56 Midodrine (Midodrine Hcl 2.5 Mg Tab) 2.5 mg PO TID@0800,1200,1700 [facility] Stop: 07/18/23 17:54 Last Admin: 06/25/23 11:29 Dose: 2.5 mg Multivitamins/Folic Acid/Vitamin C (Multivitamin Chewable Tab) 1 tab PO PM [facility] Stop: 07/14/23 20:59 Last Admin: 06/24/23 20:11 Dose: 1 tab Ondansetron HCl (Ondansetron Inj 2 Mg/Ml 2 Ml Vial) 4 mg IV Q6H PRN PRN Reason: Nausea Stop: 07/14/23 10:14 Oxycodone HCl (Oxycodone Hcl Ir 5 Mg Tab (Immediate Release)) 5 - 10 mg PO QID PRN PRN Reason: Pain Stop: 06/28/23 21:42 Last Admin: 06/25/23 11:32 Dose: 10 mg Potassium Chloride (Potassium Chloride Crtab 20 Meq Tabcr) 20 meq PO BID [facility] Stop: 07/19/23 14:38 Last Admin: 06/25/23 08:32 Dose: 20 meq Senna/Docusate Sodium (Docusate Sodium/Senna 50/8.6mg Tab) 1 tab PO DAILY [facility] Stop: 07/15/23 08:59 Last Admin: 06/25/23 08:33 Dose: 1 tab Tamsulosin HCl (Tamsulosin Hcl 0.4 Mg Cap) 0.4 mg PO PM [facility] Stop: 07/14/23 20:59 Last Admin: 06/24/23 20:10 Dose: 0.4 mg Vitamin D (Cholecalciferol 25 Mcg (1000 Units) Tab) 25 mcg PO PM [facility] Stop: 07/14/23 20:59 Last Admin: 06/24/23 20:10 Dose: 25 mcg
[2023-06-26 08:09] LABS: BUN Creatinine Ratio 22.4 (10-20); Calcium 8.7 mg/dl (8.6-10.3); Creatinine Clr Calc Pharmacy 26.2 ml/min; Est GFR (African American) 22.9 ml/min; Est GFR (Non-African American) 19.8 ml/min; Magnesium 1.6 mg/dl (1.7-2.4); Potassium 4.3 mmol/L (3.5-5.1)
--- NOTE | 2023-06-26 11:06 | Nephrology Progress Note ---
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 cause is ischemic ATN. 1.2 gm daily proteinuria in hospital. marked worsening of Proteinuric CKD 3 from DM, HTN and also hx of recurrent cellulitis since at least 09/2022 -- baseline 1.7. historically w/ 1-2 gm proteinuria since at least 2017 w/ negative serologic w/u 2018. 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 and w/ extensive cardiovascular hx > PVD, CAD, DM > overall renal prx is poor. Creat 3.2 on 06/13 presentation, peaked at 5.1 on 06/17 and now trending down. Blood cxs negative; urine grew Staph aureus and enterococcus; no wound cxs. BP is now normal. Serology tests for Acute GN pending but is not of clinical value now. avoid nephrotoxic agents. Hold losartan, NSAIDS, contrast agents. I and O charting, strict. Daily CBC and renal panel. cont midodrine 2.5 mg tid started lasix late 06/18 and 06/19 intensified to 40 mg IV qid so far tolerating and should continue standing weights ordered (2) Cellulitis of leg, right: Plan: continue dapto, zosyn fluid status is limiting healing Subjective Lots of urine and labs getting better. feels edema is definitely improved and breathing somewhat improved Review of Systems Review of Systems: All systems reviewed & are unremarkable except as noted in Subjective Physical Exam Constitutional: well developed, + frail appearing (sitting up on RA in bed) and cooperative; no acute distress Eyes: EOM intact bilaterally ENMT: Ears: no external ear abnormality Nose: no external nose abnormality Mouth: + dry oral mucous membranes Neck: no nuchal rigidity Respiratory: normal respiratory effort Auscultation: lungs clear to auscultation bilaterally (no cough) and + diminished lung sounds (markedly) Cardiovascular: Rate/Rhythm: regular rate and regular rhythm Extremities: + edema (Trace bilateral dependent; much better) Gastrointestinal (Abdomen): Inspection/Auscultation: normal bowel sounds Percussion/Palpation: abdomen soft; abdomen nontender Musculoskeletal: Extremities: strength 5/5 throughout Skin: Bandages oozing less Psychiatric: Orientation: alert and oriented x 3 Results & Data Vital Signs (Past 12 Hours) Vital Signs Temp Pulse Pulse Resp BP BP Pulse Ox 06/26/23 09:43 61 06/26/23 08:58 06/26/23 07:36 36.8 C 59 L 20 118/62 95 06/26/23 03:16 36.4 C L 60 16 133/67 95 O2 Del Method 06/26/23 09:43 06/26/23 08:58 Room Air 06/26/23 07:36 Room Air 06/26/23 03:16 Room Air
[2023-06-26] MEDS: ENOXAPARIN 100 MG/1ML SYR SQ ONE (13:50)
--- NOTE | 2023-06-26 15:13 | Hospitalist Progress Note ---
Date of Service June 26, 2023 Assessment & Plan (1) Cellulitis of leg, right: Plan: (1) Cellulitis of leg, right: (2) Hx MRSA infection: (3) Diabetic ulcer of right foot: (4) Diabetes type 2, controlled: (5) Atrial fibrillation: (6) Peripheral arterial disease: (7) Hypertension: (8) CVA (cerebral vascular accident): (9) Dyslipidemia: (10) Pacemaker: (11) Tachy-geronimo syndrome: (12) Acute kidney injury superimposed on chronic kidney disease: Plan per admitting service notes with addendum: 72 year old male with RLE cellulitis with IV abx including Dapto + Vanco given patient MRSA history and taking into consideration worsening kidney function, Infectious Disease input, WOCN consult, PT/OT and possible imaging to r/o osteo if no improvement. Will also monitor kidney function and seek consult from Nephrology. Will continue IV fluids for now and recheck BMP later this afternoon. Hold Nephrotoxic agents and replace Mg+. PT/OT pending any rehab placement needs. Right leg cellulitis complicated by chronic edema Non-healing ulcers: Leukocytosis 13.51 Procalcitonin 10.4, lactate normal Blood cultures and UA obtained in ED-blood cultures have been negative Has been on intravenous daptomycin and Zosyn Wound care management ID consult placed-awaiting input and recommendation Continue with intravenous daptomycin for now Cellulitis of the right leg has been improving Will ask the wound care nurse to put a picture of the wound Clinically much better and the wound seems to be improving with decreasing swelling of the right leg Has been diuresing enough and so for more than 11 L of negative balance Will continue current dose of Lasix and midodrine Awaiting placement and continue with physical therapy Awaiting wound care nurse evaluation Bilateral leg edema-chronic more on the right than the left #: JORGE on CKD Serum creatinine 3.16; baseline 1.4-1.7 Crea seems to have plateaued to 4.9-5.0 Nephro consulted-appreciate input and recommendation Has been getting intravenous Lasix with improvement of the edema May need dialysis if creatinine keeps on Climbing Creatinine remained stable as of today with a negative balance of 1300 mL Will continue intravenous Lasix to take out chronic edematous fluid from the legs Legs have been improving Bilateral leg swelling has improved a lot Continue with the physical therapy Creatinine remained stable UTI Urine culture: Staph species, Enterococcus faecalis Continue daptomycin IV Will continue current antibiotic Will continue IV daptomycin for now Will change to oral Augmentin on discharge #: Hypomagnesemia: Acute resolved Other significant medical conditions are stable and as documented below: #: HFrEF: Chronic Last ECHO 09/2022; normal LV wall motion, mildly concentric. EF 55-59%, mild MR, mild pHTN Takes Lasix 20 mg PRN based on weight; no recent weight fluctuations Took Lasix 40 mg PO on Monday. CXR negative for acute cardiopulmonary disease and no signs of pulmonary congestion Has been getting intravenous Lasix and diuresing enough # Atrial Fibrillation: Chronic Takes Coumadin given Vit K as INR steadily increasing, up to 6 INR trending down, now 3.1 Takes Metoprolol; continue Rate is and INR is therapeutic at 3.1 #: HTN: Chronic takes Losartan; hold for now given JORGE Blood pressure on the lower side Midodrine started # CAD: S/P Pacemaker: Chronic Pacer exchange a few weeks ago Follows with Dr. Carpenter with Cardiology monitor in Telemetry #: NIDDM Diabetes: Chronic Last A1C 6.5 on 11/2022. On Ozempic; hold while inpt A1C: 6.0 # HLD: Chronic takes Atorvastatin;hold for now while on Dapto d/t increased r/o rhabdo # BPH: Chronic. Takes Tamsulosin; continue Disposition: PCP: Dr. Jocelyne Desai COde status: Full VTE Prophylaxis: INR > 3, coumadin held Lives at home with family May need acute rehab Admission and Anticipated Discharge Date Admission Date: June 14, 2023 Subjective 06/21/2023 The patient was seen and examined in medical telemetry unit He has been feeling much better Bilateral leg swelling has been improving Denies any fever and or chills 06/22/2023 The patient was seen and examined in medical telemetry He has been feeling much better Legs are better with decreasing swelling And have diuresis with negative balance of more than 1 L Has been getting physical therapy 06/23/2023 The patient was seen and examined in medical telemetry unit He has been feeling much better Swelling of the leg has improved Has been diuresing without any significant deterioration of kidney function 06/24/2023 The patient was seen and examined in medical telemetry He has been feeling much better Leg wounds on the right side has been improving with improvement of edema both sides 06/25/2023 The patient was seen and examined in medical telemetry unit He has been feeling much better and diuresing enough His right leg is much improved 06/26/2023 The patient was seen and examined in medical telemetry unit He has been stable and doing much better Dominique very weak and lethargic Has been diuresing enough with a negative balance of 11,136 mL Review of Systems Review of Systems: All systems reviewed and are unremarkable except as noted below Physical Exam Physical Exam: Lying in bed without any acute distress Constitutional: well developed, well nourished, + ill appearing and + obese Eyes: PERRL, conjunctivae normal, anicteric sclerae ENMT: external ear and nose normal, oropharynx normal Neck: trachea midline, no thyromegaly Respiratory: no respiratory distress Auscultation: lungs clear to auscultation bilaterally Cardiovascular: Rate/Rhythm: regular rate and regular rhythm; not tachycardic Heart Sounds: normal S1 and normal S2; no murmur Extremities: + edema (2+ edema bilaterally, more on the right than the left) Gastrointestinal (Abdomen): Inspection/Auscultation: normal bowel sounds; abdomen not distended Percussion/Palpation: + abdomen tender and abdomen soft Musculoskeletal: No acute arthritis involving any of the joint Neurologic: normal touch/pain/proprioception and moves all extremities; no focal motor deficits Lymphatic: no cervical or axillary lymphadenopathy Results & Data Results & Data Vital Signs (Past 12 Hours) Vital Signs Temp Pulse Pulse Resp BP BP Pulse Ox 06/26/23 14:56 60 06/26/23 11:36 36.9 C 61 20 101/63 97 06/26/23 09:43 61 06/26/23 08:58 06/26/23 07:36 36.8 C 59 L 20 118/62 95 06/26/23 03:16 36.4 C L 60 16 133/67 95 O2 Del Method 06/26/23 14:56 06/26/23 11:36 Room Air 06/26/23 09:43 06/26/23 08:58 Room Air 06/26/23 07:36 Room Air 06/26/23 03:16 Room Air Laboratory Results BMP 06/26/23 06:52 Sodium 136 Potassium 4.3 Chloride 98 Carbon Dioxide 30 BUN 68 H Creatinine 3.04 H Glucose 117 H Calcium 8.7 Medications Administered Current Inpatient Medications Acetaminophen (Acetaminophen 325 Mg Tab) 650 mg PO Q4H PRN PRN Reason: Pain or Fever Stop: 07/14/23 10:14 Last Admin: 06/23/23 19:45 Dose: 650 mg Aspirin (Aspirin 81 Mg Ectab) 81 mg PO DAILY [facility] Stop: 07/15/23 08:59 Last Admin: 06/16/23 08:02 Dose: 81 mg Atorvastatin Calcium (Atorvastatin 40 Mg Tab) 40 mg PO PM [facility] Stop: 07/14/23 20:59 Cyanocobalamin (Cyanocobalamin (B-12) 500 Mcg Tablet) 1,000 mcg PO PM [facility] Stop: 07/14/23 20:59 Last Admin: 06/25/23 20:17 Dose: 1,000 mcg Furosemide (Furosemide 40 Mg/4 Ml Vial) 40 mg IV Q6H [facility] Stop: 07/20/23 12:14 Last Admin: 06/26/23 10:53 Dose: 40 mg Daptomycin 525 mg/ Syringe 10.5 mls @ 5.25 mls/min IV Q48H [facility]; Protocol Stop: 07/01/23 20:59 Last Admin: 06/24/23 20:08 Dose: 5.25 mls/min Lactobacillus Acidophilus (Advanced Probiotic 625 Mg Capsule) 1,250 mg PO DAILY [facility] Stop: 07/17/23 08:59 Last Admin: 06/26/23 07:38 Dose: 1,250 mg Metoprolol Succinate (Metoprolol Succ 25mg Ext Rel Tab) 25 mg PO QAM [facility] Stop: 07/15/23 08:59 Last Admin: 06/26/23 07:36 Dose: 25 mg Miconazole Nitrate (Miconazole Nitrate Powder 85 Gm) 1 appln EXT PRN PRN PRN Reason: Affected Skin Folds Stop: 07/18/23 00:56 Midodrine (Midodrine Hcl 2.5 Mg Tab) 2.5 mg PO TID@0800,1200,1700 [facility] Stop: 07/18/23 17:54 Last Admin: 06/26/23 10:53 Dose: 2.5 mg Multivitamins/Folic Acid/Vitamin C (Multivitamin Chewable Tab) 1 tab PO PM [facility] Stop: 07/14/23 20:59 Last Admin: 06/25/23 20:17 Dose: 1 tab Ondansetron HCl (Ondansetron Inj 2 Mg/Ml 2 Ml Vial) 4 mg IV Q6H PRN PRN Reason: Nausea Stop: 07/14/23 10:14 Oxycodone HCl (Oxycodone Hcl Ir 5 Mg Tab (Immediate Release)) 5 - 10 mg PO QID PRN PRN Reason: Pain Stop: 06/28/23 21:42 Last Admin: 06/26/23 10:53 Dose: 10 mg Potassium Chloride (Potassium Chloride Crtab 20 Meq Tabcr) 20 meq PO BID [facility] Stop: 07/19/23 14:38 Last Admin: 06/26/23 07:39 Dose: 20 meq Senna/Docusate Sodium (Docusate Sodium/Senna 50/8.6mg Tab) 1 tab PO DAILY [facility] Stop: 07/15/23 08:59 Last Admin: 06/26/23 07:36 Dose: 1 tab Tamsulosin HCl (Tamsulosin Hcl 0.4 Mg Cap) 0.4 mg PO PM [facility] Stop: 07/14/23 20:59 Last Admin: 06/25/23 20:17 Dose: 0.4 mg Vitamin D (Cholecalciferol 25 Mcg (1000 Units) Tab) 25 mcg PO PM [facility] Stop: 07/14/23 20:59 Last Admin: 06/25/23 20:17 Dose: 25 mcg
[2023-06-27 05:08] LABS: Basophils # (auto) 0.02 K/uL (0.00-0.20); Basophils % (auto) 0.4 %; Eosinophils # (auto) 0.16 K/uL (0.00-0.50); Eosinophils % (auto) 3.2 %; Hematocrit (blood only) 27.6 % (42.0-52.0); Hemoglobin 9.3 g/dl (14.0-18.0); Immature Granulocytes # (auto) 0.01 K/uL (0.01-0.20); Immature Granulocytes % (auto) 0.2 %; Lymphocytes # (auto) 0.97 K/uL (1.20-3.40); Lymphocytes % (auto) 19.6 %; Mean Corpuscular Hemoglobin 29.4 pg (25.0-34.0); Mean Corpuscular Hgb Conc 33.7 g/dL (32.0-36.0); Mean Corpuscular Volume 87.3 fL (80.0-100.0); Mean Platelet Volume 10.1 fL (9.4-12.4); Monocytes # (auto) 0.53 K/uL (0.11-0.59); Monocytes % (auto) 10.7 %; Neutrophils # (auto) 3.25 K/uL (1.40-6.50); Neutrophils % (auto) 65.9 %; Platelet Count 286 K/uL (130-400); RDW Coefficient of Variation 14.2 % (11.5-14.5); Red Blood Count 3.16 M/uL (4.70-6.10); White Blood Count 4.94 K/ul (4.8-10.8)
[2023-06-27 05:24] LABS: BUN Creatinine Ratio 25.3 (10-20); Calcium 8.6 mg/dl (8.6-10.3); Creatinine Clr Calc Pharmacy 27.5 ml/min; Est GFR (African American) 24.4 ml/min; Magnesium 1.6 mg/dl (1.7-2.4); Potassium 3.8 mmol/L (3.5-5.1)
--- NOTE | 2023-06-27 09:10 | Nephrology Progress Note ---
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 cause is ischemic ATN. 1.2 gm daily proteinuria in hospital. marked worsening of Proteinuric CKD 3 from DM, HTN and also hx of recurrent cellulitis since at least 09/2022 -- baseline 1.7. historically w/ 1-2 gm proteinuria since at least 2017 w/ negative serologic w/u 2018. 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 and w/ extensive cardiovascular hx > PVD, CAD, DM Creat 3.2 on 06/13 presentation, peaked at 5.1 on 06/17 and now trending down and today 2.89. Continue Current dose of lasix iv. Good diuresis and renal labs still improving mag is slightly low--add oral mag 64 bid now. Blood cxs negative; urine grew Staph aureus and enterococcus; no wound cxs. BP is now normal. Serology tests for Acute GN pending but is not of clinical value now. avoid nephrotoxic agents. Hold losartan, NSAIDS, contrast agents. I and O charting, strict. Daily CBC and renal panel. cont midodrine 2.5 mg tid started lasix late 06/18 and 06/19 intensified to 40 mg IV qid so far tolerating and should continue standing weights ordered (2) Cellulitis of leg, right: Plan: continue dapto, zosyn fluid status is limiting healing Subjective Lots of urine and labs getting better. feels edema is definitely improved and breathing somewhat improved. Review of Systems Review of Systems: All systems reviewed & are unremarkable except as noted in Subjective Physical Exam Constitutional: well developed, + frail appearing (sitting up on RA in bed) and cooperative; no acute distress Eyes: EOM intact bilaterally ENMT: Ears: no external ear abnormality Nose: no external nose abnormality Mouth: + dry oral mucous membranes Neck: no nuchal rigidity Respiratory: normal respiratory effort Auscultation: lungs clear to auscultation bilaterally (no cough) and + diminished lung sounds (markedly) Cardiovascular: Rate/Rhythm: regular rate and regular rhythm Extremities: + edema (Trace bilateral dependent; much better) Gastrointestinal (Abdomen): Inspection/Auscultation: normal bowel sounds Percussion/Palpation: abdomen soft; abdomen nontender Musculoskeletal: Extremities: strength 5/5 throughout Skin: Bandages oozing less Psychiatric: Orientation: alert and oriented x 3 Results & Data Vital Signs (Past 12 Hours) Vital Signs Temp Pulse Pulse Resp BP Pulse Ox O2 Del Method 06/27/23 07:09 36.6 C 60 18 116/65 93 Room Air 06/27/23 03:32 36.5 C 60 18 118/61 96 Room Air 06/26/23 23:36 36.3 C L 60 18 119/63 96 Room Air 06/26/23 22:07 60
--- NOTE | 2023-06-27 11:56 | Hospitalist Progress Note ---
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 Will also monitor kidney function and seek consult from Nephrology. Will continue IV fluids for now and recheck BMP later this afternoon. Hold Nephrotoxic agents and replace Mg+. PT/OT pending any rehab placement needs. Right leg cellulitis complicated by chronic edema Non-healing ulcers: Leukocytosis 13.51 Procalcitonin 10.4, lactate normal Blood cultures and UA obtained in ED-blood cultures have been negative Has been on intravenous daptomycin and Zosyn Wound care management ID consult placed-awaiting input and recommendation Continue with intravenous daptomycin for now Cellulitis of the right leg has been improving Will ask the wound care nurse to put a picture of the wound Clinically much better and the wound seems to be improving with decreasing swelling of the right leg Has been diuresing enough and so for more than 11 L of negative balance Will continue current dose of Lasix and midodrine Awaiting placement and continue with physical therapy Appreciate wound care input and recommendation-please see the wound picture to have an idea about current status of the right leg wounds Antibiotic course is finished Bilateral leg edema-chronic more on the right than the left #: JORGE on CKD Serum creatinine 3.16; baseline 1.4-1.7 Crea seems to have plateaued to 4.9-5.0 Nephro consulted-appreciate input and recommendation Has been getting intravenous Lasix with improvement of the edema May need dialysis if creatinine keeps on Climbing Creatinine remained stable as of today with a negative balance of 1300 mL Will continue intravenous Lasix to take out chronic edematous fluid from the legs Legs have been improving Bilateral leg swelling has improved a lot Will continue with the oral torsemide 40 mg twice daily and potassium supplement as advised by the battery container tester aluminum Will have an appointment with the battery container tester aluminum within 1 week for a follow-up UTI Urine culture: Staph species, Enterococcus faecalis Continue daptomycin IV Will continue current antibiotic Will continue IV daptomycin for now Will change to oral Augmentin on discharge Antibiotic course is finished #: Hypomagnesemia: Acute resolved Other significant medical conditions are stable and as documented below: #: HFrEF: Chronic Last ECHO 09/2022; normal LV wall motion, mildly concentric. EF 55-59%, mild MR, mild pHTN Takes Lasix 20 mg PRN based on weight; no recent weight fluctuations Took Lasix 40 mg PO on Monday. CXR negative for acute cardiopulmonary disease and no signs of pulmonary conge catracho Has been getting intravenous Lasix and diuresing enough Has had 12.7 L of negative balance so far while in the hospital Does not have any signs and or symptoms of fluid overload # Atrial Fibrillation: Chronic Takes Coumadin given Vit K as INR steadily increasing, up to 6 INR trending down, now 3.1 Takes Metoprolol; continue Rate is and INR is therapeutic at 3.1 He missed the doses of Coumadin for the last few days and INR today was 1.2 He was a started with subcu Lovenox and also his Coumadin Strongly advised to have it checked daily until the INR is therapeutic and Lovenox can be stopped at that time #: HTN: Chronic takes Losartan; hold for now given JORGE Blood pressure on the lower side Midodrine started # CAD: S/P Pacemaker: Chronic Pacer exchange a few weeks ago Follows with Dr. Carpenter with Cardiology monitor in Telemetry #: NIDDM Diabetes: Chronic Last A1C 6.5 on 11/2022. On Ozempic; hold while inpt A1C: 6.0 # HLD: Chronic takes Atorvastatin;hold for now while on Dapto d/t increased r/o rhabdo # BPH: Chronic. Takes Tamsulosin; continue Disposition: PCP: Dr. Jocelyne Desai COde status: Full VTE Prophylaxis: INR > 3, coumadin held Lives at home with family He will be transferred to [facility] this afternoon Admission and Anticipated Discharge Date Admission Date: June 14, 2023 Subjective 06/21/2023 The patient was seen and examined in medical telemetry unit He has been feeling much better Bilateral leg swelling has been improving Denies any fever and or chills 06/22/2023 The patient was seen and examined in medical telemetry He has been feeling much better Legs are better with decreasing swelling And have diuresis with negative balance of more than 1 L Has been getting physical therapy 06/23/2023 The patient was seen and examined in medical telemetry unit He has been feeling much better Swelling of the leg has improved Has been diuresing without any significant deterioration of kidney function 06/24/2023 The patient was seen and examined in medical telemetry He has been feeling much better Leg wounds on the right side has been improving with improvement of edema both sides 06/25/2023 The patient was seen and examined in medical telemetry unit He has been feeling much better and diuresing enough His right leg is much improved 06/26/2023 The patient was seen and examined in medical telemetry unit He has been stable and doing much better Dominique very weak and lethargic Has been diuresing enough with a negative balance of 11,136 mL 06/27/2023 The patient was seen and examined in medical telemetry unit He has been feeling much better and the legs are much improved Denies any significant symptoms except weakness and some pain while he is getting physical therapy and getting out of bed He will be discharged to [facility] this afternoon Review of Systems Review of Systems: All systems reviewed and are unremarkable except as noted below Physical Exam Physical Exam: Lying in bed without any acute distress Constitutional: well developed, well nourished, + ill appearing and + obese Eyes: PERRL, conjunctivae normal, anicteric sclerae ENMT: external ear and nose normal, oropharynx normal Neck: trachea midline, no thyromegaly Respiratory: no respiratory distress Auscultation: lungs clear to auscultation bilaterally Cardiovascular: Rate/Rhythm: regular rate and regular rhythm; not tachycardic Heart Sounds: normal S1 and normal S2; no murmur Extremities: + edema (Bilateral leg edema are much improved) Gastrointestinal (Abdomen): Inspection/Auscultation: normal bowel sounds; abdomen not distended Percussion/Palpation: + abdomen tender and abdomen soft Skin: Please see the picture of the wound to have an idea about the wounds and the right leg mainly and in the sole Neurologic: normal touch/pain/proprioception and moves all extremities; no focal motor deficits Lymphatic: no cervical or axillary lymphadenopathy Results & Data Results & Data Vital Signs (Past 12 Hours) Vital Signs Temp Pulse Resp BP Pulse Ox O2 Del Method 06/27/23 07:09 36.6 C 60 18 116/65 93 Room Air 06/27/23 03:32 36.5 C 60 18 118/61 96 Room Air Laboratory Results Short CBC 06/27/23 Range/Units 04:43 WBC 4.94 (4.8-10.8) K/ul Hgb 9.3 L (14.0-18.0) g/dl Hct 27.6 L (42.0-52.0) % Plt Count 286 (130-400) K/uL BMP 06/27/23 04:43 Sodium 134 L Potassium 3.8 Chloride 97 L Carbon Dioxide 27 BUN 73 H Creatinine 2.89 H Glucose 124 H Calcium 8.6 Medications Administered Current Inpatient Medications Acetaminophen (Acetaminophen 325 Mg Tab) 650 mg PO Q4H PRN PRN Reason: Pain or Fever Stop: 07/14/23 10:14 Last Admin: 06/23/23 19:45 Dose: 650 mg Aspirin (Aspirin 81 Mg Ectab) 81 mg PO DAILY [facility] Stop: 07/15/23 08:59 Last Admin: 06/16/23 08:02 Dose: 81 mg Atorvastatin Calcium (Atorvastatin 40 Mg Tab) 40 mg PO PM [facility] Stop: 07/14/23 20:59 Cyanocobalamin (Cyanocobalamin (B-12) 500 Mcg Tablet) 1,000 mcg PO PM [facility] Stop: 07/14/23 20:59 Last Admin: 06/26/23 20:13 Dose: 1,000 mcg Furosemide (Furosemide 40 Mg/4 Ml Vial) 40 mg IV Q6H [facility] Stop: 07/20/23 12:14 Last Admin: 06/27/23 05:33 Dose: 40 mg Daptomycin 525 mg/ Syringe 10.5 mls @ 5.25 mls/min IV Q48H [facility]; Protocol Stop: 07/01/23 20:59 Last Admin: 06/26/23 20:14 Dose: 5.25 mls/min Lactobacillus Acidophilus (Advanced Probiotic 625 Mg Capsule) 1,250 mg PO DAILY [facility] Stop: 07/17/23 08:59 Last Admin: 06/27/23 09:03 Dose: 1,250 mg Magnesium Chloride (Magnesium Chloride W/Calcium 64mg Delayed Rel Tab) 64 mg PO BID [facility] Stop: 07/27/23 09:14 Metoprolol Succinate (Metoprolol Succ 25mg Ext Rel Tab) 25 mg PO QAM [facility] Stop: 07/15/23 08:59 Last Admin: 06/27/23 09:01 Dose: 25 mg Miconazole Nitrate (Miconazole Nitrate Powder 85 Gm) 1 appln EXT PRN PRN PRN Reason: Affected Skin Folds Stop: 07/18/23 00:56 Midodrine (Midodrine Hcl 2.5 Mg Tab) 2.5 mg PO TID@0800,1200,1700 [facility] Stop: 07/18/23 17:54 Last Admin: 06/27/23 09:03 Dose: 2.5 mg Multivitamins/Folic Acid/Vitamin C (Multivitamin Chewable Tab) 1 tab PO PM [facility] Stop: 07/14/23 20:59 Last Admin: 06/26/23 20:13 Dose: 1 tab Ondansetron HCl (Ondansetron Inj 2 Mg/Ml 2 Ml Vial) 4 mg IV Q6H PRN PRN Reason: Nausea Stop: 07/14/23 10:14 Oxycodone HCl (Oxycodone Hcl Ir 5 Mg Tab (Immediate Release)) 5 - 10 mg PO QID PRN PRN Reason: Pain Stop: 06/28/23 21:42 Last Admin: 06/27/23 06:43 Dose: 10 mg Potassium Chloride (Potassium Chloride Crtab 20 Meq Tabcr) 20 meq PO BID [facility] Stop: 07/19/23 14:38 Last Admin: 06/27/23 09:02 Dose: 20 meq Senna/Docusate Sodium (Docusate Sodium/Senna 50/8.6mg Tab) 1 tab PO DAILY [facility] Stop: 07/15/23 08:59 Last Admin: 06/27/23 09:01 Dose: 1 tab Tamsulosin HCl (Tamsulosin Hcl 0.4 Mg Cap) 0.4 mg PO PM [facility] Stop: 07/14/23 20:59 Last Admin: 06/26/23 20:14 Dose: 0.4 mg Vitamin D (Cholecalciferol 25 Mcg (1000 Units) Tab) 25 mcg PO PM [facility] Stop: 07/14/23 20:59 Last Admin: 06/26/23 20:13 Dose: 25 mcg
[2023-06-27 13:45] LABS: INR 1.2 (0.9-1.1); Prothrombin Time 12.4 Seconds (9.0-12.0)
[2023-06-27] MEDS: WARFARIN SOD 6 MG TAB PO ONE (14:25)
[2023-06-27] MEDS: MAGNESIUM CHLORIDE W/CALCIUM 64MG DELAYED REL TAB PO SCH (14:26)
--- NOTE | 2023-06-27 19:10 | Discharge Summary ---
Date of Service June 27, 2023 Admission HPI Per Admitting Provider Mr. Cooley is a 72 year old male that presents to the ED today with his family with complaints of persistent and worsening R leg swelling. He has a persistent history of lower extremity cellulitis with toe amputations. He was seen by his home health nurse on Monday for dressing changes of a right toe ulcer (he is not taking any antibiotics at this time for that). PMH includes: ischemic left MCA stroke (2018 inpatient stay at [facility] [place]), AF ( On Coumadin), DM2, H/O CVA, HLD, CKD, tachy-geronimo syndrome s/p PM, depression, and HLD. Leukocytosis 13.51, elevated Procal 10.4, lactate normal. Creat 3.16; baseline 1.4-1.7. His most recent ECHO was 09/2022 LV wall motion normal, EF 55-59%, mild pHTN, mild TR. He was admitted at [facility] 05/05-05/25/19 for LLE cellulitis s/p fall and developed MRSA resistance. He was treated at that time with Dapto + Zosyn and later Augmentin upon discharge. Possible L popliteal stenosis was identified and advised to follow up as an outpatient. His creatinine at that time was 2.1 and improved to his baseline of 1.5. He lives a few apartments away from his daughter; he is generally independent and uses a can intermittently. He performs all of his own ADL's has help with Meals on Wheels for 2 meals per day and he makes his own dinner. He does appear slightly cachectic in his upper extremities. Patient will be admitted for further evaluation and management of his RLE cell ulitis with IV abx including Dapto + Vanco given patient MRSA history and taking into consideration worsening kidney function, Infectious Disease input, WOCN consult, PT/OT and possible imaging to r/o osteo if no improvement. Will also monitor kidney function and seek consult from Nephrology. Will continue IV fluids for now and recheck BMP later this afternoon. Hold Nephrotoxic agents and replace Mg+. PT/OT pending any rehab placement needs. Admission Exam Per Admitting Provider Physical Exam: Neuro: AAOx4, PERRLA, no aphagia, memory changes, CNII-XII grossly intact HEENT: head normocephalic, moist mucus membranes CV: S1/S2, (-) M/G/R, (-) edema, cap refill < 3 seconds Resp: Lungs CTA in all snider. On RA GI: Abdomen S/NT/ND, Ax4 bowel sounds, (-) CVA tenderness Musculoskeletal: 5/5 B/L UE strength, 5/5 B/L LE strength. No gait disturbance Skin: (-) rashes , (+) circumferential erythema RLE with (+) malodor and drainage from posterior calf; serous drainage. Psych: euthymic mood Principal Diagnosis Right leg cellulitis, chronic edema of the legs, JORGE on CKD, atrial fibrillation on Coumadin, heart failure with mildly reduced EF Discharge Exam Lying in bed without any acute distress Constitutional well developed, well nourished, + ill appearing and + obese Eyes PERRL, conjunctivae normal, anicteric sclerae ENMT external ear and nose normal, oropharynx normal Neck trachea midline, no thyromegaly Respiratory no respiratory distress Auscultation: lungs clear to auscultation bilaterally Cardiovascular Rate/Rhythm: regular rate and regular rhythm; not tachycardic Heart Sounds: normal S1 and normal S2; no murmur Extremities: + edema (Bilateral leg edema are much improved) Gastrointestinal (Abdomen) Inspection/Auscultation: normal bowel sounds; abdomen not distended Percussion/Palpation: + abdomen tender and abdomen soft Neurologic normal touch/pain/proprioception and moves all extremities; no focal motor deficits Lymphatic no cervical or axillary lymphadenopathy Discharge Data Allergies Allergy/AdvReac Type Severity Reaction Status Date / Time No Known Allergies Allergy Verified 05/12/22 11:02 Consultations 06/14/23 10:04 ED Decision to Admit Stat 06/14/23 10:47 Consult Infectious Diseases Routine 06/14/23 11:40 Consult Nephrology Routine 06/15/23 07:51 Consult Nephrology Routine 06/18/23 11:43 Consult Podiatry Routine Ordered Studies 06/14/23 08:52 US venous doppler LE RT Stat 06/15/23 11:42 US Renal Bladder [US renal/blad retro comp] Routine 06/16/23 18:59 CT leg [CT tib/fib RT wo con] Routine 06/16/23 19:00 CT foot RT wo con Routine Hospital Course (1) Cellulitis of leg, right: (1) Cellulitis of leg, right: (2) Hx MRSA infection: (3) Diabetic ulcer of right foot: (4) Diabetes type 2, controlled: (5) Atrial fibrillation: (6) Peripheral arterial disease: (7) Hypertension: (8) CVA (cerebral vascular accident): (9) Dyslipidemia: (10) Pacemaker: (11) Tachy-geronimo syndrome: (12) Acute kidney injury superimposed on chronic kidney disease: Plan per admitting service notes with addendum: 72 year old male with RLE cellulitis with IV abx including Dapto + Vanco given patient MRSA history and taking into consideration worsening kidney function, Infectious Disease input, WOCN consult, PT/OT and possible imaging to r/o osteo if no improvement. Will also monitor kidney function and seek consult from Nephrology. Will continue IV fluids for now and recheck BMP later this afternoon. Hold Nephrotoxic agents and replace Mg+. PT/OT pending any rehab placement needs. Right leg cellulitis complicated by chronic edema Non-healing ulcers: Leukocytosis 13.51 Procalcitonin 10.4, lactate normal Blood cultures and UA obtained in ED-blood cultures have been negative Has been on intravenous daptomycin and Zosyn Wound care management ID consult placed-awaiting input and recommendation Continue with intravenous daptomycin for now Cellulitis of the right leg has been improving Will ask the wound care nurse to put a picture of the wound Clinically much better and the wound seems to be improving with decreasing swelling of the right leg Has been diuresing enough and so for more than 11 L of negative balance Will continue current dose of Lasix and midodrine Awaiting placement and continue with physical therapy Appreciate wound care input and recommendation-please see the wound picture to have an idea about current status of the right leg wounds Antibiotic course is finished Bilateral leg edema-chronic more on the right than the left #: JORGE on CKD Serum creatinine 3.16; baseline 1.4-1.7 Crea seems to have plateaued to 4.9-5.0 Nephro consulted-appreciate input and recommendation Has been getting intravenous Lasix with improvement of the edema May need dialysis if creatinine keeps on Climbing Creatinine remained stable as of today with a negative balance of 1300 mL Will continue intravenous Lasix to take out chronic edematous fluid from the legs Legs have been improving Bilateral leg swelling has improved a lot Will continue with the oral torsemide 40 mg twice daily and potassium supplement as advised by the measuring clerk Will have an appointment with the measuring clerk within 1 week for a follow-up UTI Urine culture: Staph species, Enterococcus faecalis Continue daptomycin IV Will continue current antibiotic Will continue IV daptomycin for now Will change to oral Augmentin on discharge Antibiotic course is finished #: Hypomagnesemia: Acute resolved Other significant medical conditions are stable and as documented below: #: HFrEF: Chronic Last ECHO 09/2022; normal LV wall motion, mildly concentric. EF 55-59%, mild MR, mild pHTN Takes Lasix 20 mg PRN based on weight; no recent weight fluctuations Took Lasix 40 mg PO on Monday. CXR negative for acute cardiopulmonary disease and no signs of pulmonary congestion Has been getting intravenous Lasix and diuresing enough Has had 12.7 L of negative balance so far while in the hospital Does not have any signs and or symptoms of fluid overload # Atrial Fibrillation: Chronic Takes Coumadin given Vit K as INR steadily increasing, up to 6 INR trending down, now 3.1 Takes Metoprolol; continue Rate is and INR is therapeutic at 3.1 He missed the doses of Coumadin for the last few days and INR today was 1.2 He was a started with subcu Lovenox and also his Coumadin Strongly advised to have it checked daily until the INR is therapeutic and Lovenox can be stopped at that time #: HTN: Chronic takes Losartan; hold for now given JORGE Blood pressure on the lower side Midodrine started # CAD: S/P Pacemaker: Chronic Pacer exchange a few weeks ago Follows with Dr. Carpenter with Cardiology monitor in Telemetry #: NIDDM Diabetes: Chronic Last A1C 6.5 on 11/2022. On Ozempic; hold while inpt A1C: 6.0 # HLD: Chronic takes Atorvastatin;hold for now while on Dapto d/t increased r/o rhabdo # BPH: Chronic. Takes Tamsulosin; continue Disposition: PCP: Dr. Jocelyne Desai COde status: Full VTE Prophylaxis: INR > 3, coumadin held Lives at home with family He will be transferred to [facility] this afternoon Total Time Total Time Spent Total Time Spent (In Minutes): 45 minutes Discharge Plan Discharge Items Patient Disposition: Transfer Intermediate Fac Reason For Visit: CELLULITIS LEG/JORGE Discharge Diagnosis: Right leg cellulitis, chronic edema of the legs, JORGE on CKD, atrial fibrillation on Coumadin, heart failure with mildly reduced EF Condition on Discharge: Fair Activity: As commented below Activity Comment: Will need to continue physical therapy Non-emergency contact: Primary Care Provider Call non-emergency contact if: you have any medication questions and your symptoms worsen Follow-up/Referrals: Jennifer Agustin MD, PhD [Physician] - (The Nephrology office will contact you for a follow up appointment.) Jocelyne Desai DO [Primary Care Provider] - Diet: Heart Healthy Fluids: 1500ml (6 cups) Diet Texture: Easy to Chew Addtl Attending Provider Instructions: Please take precautions to avoid falls You will need to take Lovenox 90 mg daily for the next 2 to 3 days until the INR is therapeutic Advised to check INR daily until he is therapeutic and stop Lovenox and continue with Coumadin only to maintain INR between 2-3 Wound care as per the wound care nurse Please keep appointments with healthcare providers Pending Studies at Discharge: No Stand-Alone Forms: My [facility] Skilled Items Patient informed of condition?: Yes DNR: No Discharge Level of Care: Skilled Communicable Disease: No Discharge Prognosis: Stable Lines: None Urinary Catheter: No Medications and DC Order Prescriptions: New potassium chloride 20 mEq Tablet,Er Particles/Crystals 20 meq PO DAILY Qty: 30 0RF midodrine 2.5 mg Tablet 2.5 mg PO TID@0800,1200,1700 Qty: 90 0RF Soaanz 40 mg tablet 40 mg PO BID Qty: 60 0RF enoxaparin [Lovenox] 100 mg/mL syringe 90 mg subcut DAILY Qty: 5 0RF Rx Instructions: SQ daily and check INR daily and stop it when INR is therapeutic oxycodone 5 mg tablet 5 mg PO Q6H PRN (Reason: pain) Qty: 20 0RF Continued magnesium oxide 400 mg magnesium capsule 400 mg PO DAILY Flintstones Complete (iron) Tablet,Chewable 1 tab PO PM Qty: 0 atorvastatin 40 mg Tablet 40 mg PO PM Qty: 0 cholecalciferol (vitamin D3) [Vitamin D3] 1,000 unit Capsule 2,000 unit PO PM tamsulosin 0.4 mg Capsule 0.4 mg PO PM cyanocobalamin (vitamin B-12) 1,000 mcg Tablet 1,000 mcg PO PM triamcinolone acetonide 0.1 % Cream 1 applic TOPICAL BID PRN (Reason: Rash) Rx Instructions: To affected area acetaminophen 500 mg Tablet 1,000 mg PO Q6H PRN (Reason: Pain) aspirin 81 mg Tablet 81 mg PO DAILY warfarin 3 mg Tablet 6 mg PO MO@1600 warfarin 3 mg Tablet 3 mg PO SUTUWETHFRSA@1600 cyclobenzaprine 10 mg Tablet 10 mg PO Q8H PRN (Reason: muscle spasm) Qty: 15 0RF metoprolol succinate 25 mg Tablet Extended Release 24 Hr 25 mg PO QAM Qty: 30 0RF senna-docusate sodium Tablet 1 tab PO DAILY semaglutide 0.25 mg or 0.5 mg(2 mg/1.5 mL) Pen Injector 0.25 mg SUBCUT WK Discontinued furosemide 20 mg tablet 20 mg PO DAILY PRN (Reason: swelling) Rx Instructions: AM losartan 50 mg Tablet 50 mg PO DAILY Discharge Orders: Discharge Order (Routine); Ordered 06/27/23 Ordered By: Rex Barbosa/Other Patient Handouts: Nutrition for Wound Healing, Managing Type 2 Diabetes Admission Data Admit Date/Time: 06/14/23 10:15 Attending Provider: Rex Almendarez Admit Provider: Maurisio Mejia Primary Care Provider: Jocelyne Desai Other Providers: Maurisio Mejia; Thierry Aguayo; Jen Juárez; Raymond Lam I.; Enrique Enriquez II; Marycarmen Vega; Greg Freeman; Manuel Ogden; Mica Shah; Dale Connor; Slick Dunn; Agustin Cheng Roshan; Jennifer Agustin; Aleks Miller; Monica Burns; Marycarmen Hyde; Paresh Ingram; Jus Garcia Other Interventions: Discharge Summary Assessment (RN) Last Done: 06/27/23 15:29
--- NOTE | 2023-06-28 19:02 | Coding Query ---
DEBRIDEMENT DOCUMENTATION To promote full compliance with coding requirements relating to patient care, physician participation is requested in all cases of field applications specialist uncertainty. Please assist us with the question(s) below: 6 CONSULT: Wound debrided to healthier base at bedside. - Cleansed and redressed with pomogram/collagen dressing and adhesive border dressing. Please place an X in the parenthesis (x). If other, please document the finding: Type of Debridement: (X) Excisional Debridement- Cutting away necrotic, devitalized tissue or slough to the level of viable tissue using a sharp instrument (i.e. scalpel, scissors, etc.) ( ) Non Excisional Debridement- The removal of necrotic, devitalized tissue or slough by means of scraping, mechanical brushing, flushing, or washing (i.e. irrigation,whirlpool);minor removal of loose fragments. ( ) Other (please specify): Instrument Used: ( ) Scissors ( ) Scalpel (X) Curette ( ) Other (please specify): Depth of Debridement: (X) Skin ( ) Skin and Subcutaneous Tissue ( ) Skin, Subcutaneous Tissue and Muscle ( ) Skin, Subcutaneous Tissue, Muscle and Bone ( ) Other (please specify): Please Specify the Size of Debridement in cm2: 1.5 Thank you Diamante PEREZ
== END 2023-06-27 16:53 | DRG 602 ==
LOC: ED 08:34 → SUATTDRO 10:15 → EDINP 10:15 → 2W 13:05

== ENCOUNTER 2023-08-01 08:24 | Inpatient (IN) ==
--- NOTE | 2023-08-01 08:34 | Emergency Department Note ---
Impression & Plan Cellulitis of right lower extremity, Diabetic ulcer of right foot, Acute UTI ED Provider Note NAME: RANI CHRISTIAN AGE: 73 SEX: M : 1950 ARRIVES VIA: Walk-In INFORMANT: Patient, ED PROVIDER(S): Jin Reza MD CHIEF COMPLAINT: Outpatient referral, concern for wound and right leg infection MEDICAL DECISION MAKING: Patient presented due to concern for worsening right lower extremity wound and reportedly positive from some sort of culture. IV was established and blood work was obtained. Wound swabs were obtained from 2 of his open wounds from the right leg. The patient was started on empiric daptomycin. Blood shows a normal white count hemoglobin of 10.4 which is relatively chronic and stable. Platelet count is unremarkable. The patient's kidney function with a creatinine 3.79. Patient does have elevated creatinine in the past. Potassium is low at 3 and magnesium is low at 1.4. The patient did have initial lactate of 2.1. The patient was ordered 500 cc bolus but no additional fluids due to concern for his kidney dysfunction. Patient's magnesium was ordered for replete with 2 g IV. I did speak with the on-call hospital service Dr. Curtis and the patient was admitted to the medicine service. Urinalysis noted likely to have infection. Zosyn started by the inpatient service. Discussion w/ other healthcare providers: Dr. Curtis inpatient medicine service [facility] Prior /Outside records reviewed: I reviewed a discharge summary from Dr. Almendarez from June 27, 2023. Patient had presented due to concern of right leg swelling and cellulitis. Prior history of toe amputations. Patient does have a prior history of ischemic left MCA stroke A-fib on Coumadin type 2 diabetes hyperlipidemia CKD tachybradycardia syndrome status post pacemaker depression and hyperlipidemia. Patient did receive IV antibiotics including Dapto and vancomycin. Differential diagnosis: Infection, dehydration, metabolic abnormality, hypo/hyperglycemia, electrolyte imbalance, anemia, UTI, pneumonia, thyroid dysfunction among others were considered. Diagnostics, as interpreted by me: ECG: V-paced rhythm, rate of 60, wide QRS, left branch block pattern. No obvious Sgarbossa criteria. Cardiac monitoring: An order was placed for continuous cardiac monitoring. The monitor shows a rate of 62 with sinus rhythm. Patient was placed on pulse oximetry Medical decision rules: None Imaging studies: I informally interpreted the patient's chest x ray does not show obvious pna or pnx with formal report to follow. HPI: Patient presents due to concern for right lower extremity wound as well as recent positive blood work. Patient does follow with a marketing operations specialist at [facility] Dr. Aquino. The patient states that he had some blood work that was completed last Monday through home health and believes that he also had a wound swab taken from his right lower extremity and was told that "things are growing in there." Patient denies any chest pain shortness of breath nausea vomiting or abdominal pain. The patient states that he also follows with nephrology at [facility] as he has borderline end-stage renal disease requiring dialysis but currently still making urine. Patient denies any fevers. The patient states that he does have a history of diabetes but his sugars are well-controlled and does not check them. Patient denies any significant pain. Patient has been taking Nuzyra as an outpatient. PAST MEDICAL HISTORY: See Below PAST SURGICAL HISTORY: See Below SOCIAL HISTORY: See Below HOME MEDICATIONS: See Below ALLERGIES: See Below VITALS: See Below PHYSICAL EXAMINATION: GENERAL: NAD, non-toxic. Wearing glasses. EYE EXAM: Normal conjunctiva. PERRL, no anisocoria and EOM's grossly intact w/o pain. OROPHARYNX: Moist mucus membranes, grossly normal dentition. NECK: Trachea midline, no stridor. Well-healed posterior neck midline incisional scar. Chest: Device noted in left chest. LUNGS: Clear to auscultation. Normal chest wall mechanics. HEART: NSR, no MRG. ABDOMEN: Abdomen soft, non-tender, no masses, no rebound or guarding. BACK: No CVA TTP. SKIN: No rashes and no bruising. UPPER EXTREMITIES: Upper extremities are grossly normal. LOWER EXTREMITIES: Right greater than left lower extremity swelling with associated erythema mild calorie with 2 cm wound that extends to the deep tissue with associated packing in place over the medial aspect of the right calf, half centimeter ulcer noted to the plantar aspect of the distal right foot, mild surrounding erythema and calor. NEURO EXAM: A&O x3, cranial nerves II-XII grossly intact, normal speech, moves all 4 extremities. Past Med/Surg History Problem List (Updated 08/01/23 @ 16:20 by Jin Reza MD) Acute UTI (Acute) Leg pain, right Morbid obesity Cellulitis of leg, right (Acute) Pacemaker battery depletion Hx MRSA infection Cellulitis of right lower extremity Acute dyspnea (Acute) Acute exacerbation of CHF (congestive heart failure) (Acute) Non-ST elevation MD (NSTEMI) (Acute) Acute kidney injury superimposed on chronic kidney disease (Acute) Chronic osteomyelitis MRSA infection Traumatic open wound of lower leg Infected wound Status post partial amputation of foot Abdominal pannus Venous stasis ulcer of right lower leg with edema of right lower leg Chronic venous insufficiency of lower extremity (Chronic) Diabetic ulcer of toe (Acute) Diabetic ulcer of right foot (Acute) Spinal stenosis (Chronic) CHF (congestive heart failure) (Chronic) Diabetes type 2 with atherosclerosis of arteries of extremities Right hip pain Unsteady gait Personal history of diabetic foot ulcer Diabetic peripheral neuropathy associated with type 2 diabetes mellitus Diabetes type 2, controlled NIDDM Atrial fibrillation (Chronic) Peripheral arterial disease (Chronic) 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, EVELINE TPT/proximal GRAPE CUTTER 10/2019, Right great toe amputation 07/2020 with revision 08/2020 Hypertension (Chronic) Chronic anemia CVA (cerebral vascular accident) 01/2018; residual right sided weakness Mixed sleep apnea No device (previous BIPAP) CKD (chronic kidney disease), stage III Dyslipidemia Pacemaker (Chronic) Left, normal single chamber pacemaker function with stable pacing and sensing thresholds per pacer check 12/08/20 [facility] Tachy-geronimo syndrome Medical History Hyperlipemia Essential hypertension 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 kidney disease Degenerative cervical spinal stenosis Degenerative lumbar spinal stenosis Proliferative diabetic retinopathy Venous insufficiency of both lower extremities Erectile dysfunction Nonalcoholic 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 (PLATT) care home current use of 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 Hyperparathyroidism, secondary renal Esophageal obstruction Complex sleep apnea syndrome Vitamin B12 deficiency Persistent proteinuria Paroxysmal SVT (supraventricular tachycardia) Myocardial Infarction 2017 > medically managed CHF (congestive heart failure) Acute renal failure superimposed on stage 3 chronic kidney disease 08/2020 hospitalization, UTI and osteomyelitis, necrotizing fasciitis Depression Sepsis 2013 Surgical History History of amputation of lesser toe of right foot Hx of angioplasty Amputation toe Right great toe amputation (08/12/20): MAC at [facility] History of esophagogastroduodenoscopy (EGD) History of vascular surgery Left popliteal, EVELINE TPT/proximal GRAPE CUTTER (10/2019) Right great toe I&D, revision amputation (08/21/20): MAC at [facility] History of hand surgery Tendon transfer Gastric bypass status for obesity Family History Brother Diabetes Mother Diabetes Father Diabetes Other Cancer Hypertension Social History Smoking Status: Former smoker Tobacco Type: Cigarettes Second Hand Exposure: No; Do You Dip or Chew Tobacco: No; Hx Alcohol Use: No Hx Substance Use: No Preferred Language: Kyrgyz 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 Ability: Effective Visual Impairment: No Limitations Hearing Ability: Normal Etl 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 current occupational status: retired How many Children do You have: 2 Feels Safe at Home: Yes Diet Comment: Educated to increase protein, vitamin c, d and zinc Assistive Devices: BiPap, Cane, Hospital Bed, Lift Chair and Walker Allergies Allergies Allergy/AdvReac Type Severity Reaction Status Date / Time No Known Allergies Allergy Verified 08/01/23 09:23 Home Meds Home Medications Medication Instructions Recorded Confirmed pediatric [id number] 1 tab PO PM ##0 04/11/13 08/01/23 (Flintstones Complete (iron) chewable tablet) atorvastatin 40 mg tablet 40 mg PO PM #0 tabs 01/08/17 08/01/23 cholecalciferol (vitamin D3) 25 2,000 unit PO PM 10/18/17 08/01/23 mcg (1,000 unit) capsule (Vitamin D3) cyanocobalamin (vitamin B-12) 1,000 mcg PO PM 05/06/19 08/01/23 1,000 mcg tablet tamsulosin 0.4 mg capsule 0.4 mg PO PM 05/06/19 08/01/23 magnesium oxide 400 mg PO QAM 09/26/19 08/01/23 triamcinolone acetonide 0.1 % 1 applic topical BID PRN Rash 08/11/20 08/01/23 topical cream acetaminophen 500 mg tablet 1,000 mg PO Q6H PRN Pain 12/17/20 08/01/23 aspirin 81 mg tablet 81 mg PO QPM 12/21/20 08/01/23 warfarin 3 mg tablet See Rx Instructions .Route .COMPLEX 10/07/22 08/01/23 potassium chloride 20 mEq 20 meq PO QAM 08/01/23 08/01/23 tablet,extended release(part/cryst) semaglutide 0.25 mg or 0.5 mg (2 0.25 mg subcut WK 08/01/23 08/01/23 mg/3 mL) subcutaneous pen injector (Ozempic) Previous Rx's Medication Instructions Recorded cyclobenzaprine 10 mg tablet 10 mg PO Q8H PRN muscle spasm #15 10/16/22 tabs metoprolol succinate 25 mg 25 mg PO QAM #30 tabs 10/16/22 tablet,extended release 24 hr midodrine 2.5 mg tablet 2.5 mg PO TID@0800,1200,1700 #90 06/27/23 tabs oxycodone 5 mg tablet 5 mg PO Q6H PRN pain #20 tabs 06/27/23 torsemide 40 mg tablet (Soaanz) 40 mg PO BID #60 tabs 06/27/23 Results & Data (ED) Vital Signs Vital Signs - 24 hr 08/01/23 08:29 08/01/23 08:48 08/01/23 08:53 Temperature 36.6 C 36.9 C Temperature Source Temporal Artery Scan Oral Pulse Rate 94 H 65 Pulse Rate [Apical] 61 Pulse Rhythm Regular Pulse Strength Normal Respiratory Rate 16 12 Respiratory Effort / Characteristics Non-Labored Spontaneous Non-Labored Spontaneous Respiratory Depth Normal Normal Respiratory Pattern Regular Regular Blood Pressure 100/60 Blood Pressure [Left Arm] 138/96 Blood Pressure Mean 73 Blood Pressure Mean [Left Arm] 110 Blood Pressure Position Sitting Blood Pressure Position [Left Arm] Semi-fowlers Pulse Oximetry 94 99 Oxygen Delivery Method Room Air Room Air Sepsis Recent Fever Within 48 Hours No Sepsis New/Unexplained Change in Mental Status No Sepsis Action Taken by Nursing No Action Required 08/01/23 09:24 08/01/23 09:25 08/01/23 09:45 Temperature Temperature Source Pulse Rate 60 Pulse Rate [Apical] 60 79 Pulse Rhythm Pulse Strength Respiratory Rate 25 H 15 25 H Respiratory Effort / Characteristics Non-Labored Spontaneous Non-Labored Spontaneous Respiratory Depth Normal Normal Respiratory Pattern Regular Regular Blood Pressure Blood Pressure [Left Arm] 138/96 138/96 Blood Pressure Mean Blood Pressure Mean [Left Arm] 110 110 Blood Pressure Position Blood Pressure Position [Left Arm] Semi-fowlers Pulse Oximetry 100 100 100 Oxygen Delivery Method Room Air Room Air Room Air Sepsis Recent Fever Within 48 Hours Sepsis New/Unexplained Change in Mental Status Sepsis Action Taken by Nursing 08/01/23 10:15 08/01/23 10:30 Temperature Temperature Source Pulse Rate Pulse Rate [Apical] 60 63 Pulse Rhythm Pulse Strength Respiratory Rate 12 12 Respiratory Effort / Characteristics Non-Labored Spontaneous Non-Labored Spontaneous Respiratory Depth Normal Normal Respiratory Pattern Regular Regular Blood Pressure Blood Pressure [Left Arm] 127/71 116/68 Blood Pressure Mean Blood Pressure Mean [Left Arm] 89 84 Blood Pressure Position Blood Pressure Position [Left Arm] Pulse Oximetry 99 99 Oxygen Delivery Method Room Air Room Air Sepsis Recent Fever Within 48 Hours Sepsis New/Unexplained Change in Mental Status Sepsis Action Taken by Long-Term Medications Current Medication List: was personally reviewed by me Laboratory Data Attestation: I reviewed the patient's lab results. 08/01/23 08:41 08/01/23 08:41 Lab Results 08/01/23 08/01/23 08/01/23 Range/Units 08:41 08:42 09:48 WBC 10.42 (4.8-10.8) K/ul RBC 3.69 L (4.70-6.10) M/uL Hgb 10.4 L (14.0-18.0) g/dl Hct 31.5 L (42.0-52.0) % MCV 85.4 (80.0-100.0) fL MCH 28.2 (25.0-34.0) pg MCHC 33.0 (32.0-36.0) g/dL RDW Std Deviation 44.4 (36.4-46.3) fL RDW Coeff of Jason 14.4 (11.5-14.5) % Plt Count 166 (130-400) K/uL MPV 11.3 (9.4-12.4) fL Immature Gran % (Auto) 0.3 % Neut % (Auto) 82.0 % Lymph % (Auto) 10.4 % O'Brien % (Auto) 6.2 % Eos % (Auto) 1.0 % Baso % (Auto) 0.1 % Neut # (Auto) 8.55 H (1.40-6.50) K/uL Lymph # (Auto) 1.08 L (1.20-3.40) K/uL O'Brien # (Auto) 0.65 H (0.11-0.59) K/uL Eos # (Auto) 0.10 (0.00-0.50) K/uL Baso # (Auto) 0.01 (0.00-0.20) K/uL Immature Gran # (Auto) 0.03 (0.01-0.20) K/uL PT 34.5 H (9.0-12.0) Seconds INR 3.6 H (0.9-1.1) APTT 46 H (21-31) Seconds PTT Ratio 1.7 Sodium 134 L (136-145) mmol/L Potassium 3.0 L (3.5-5.1) mmol/L Chloride 98 (98-107) mmol/L Carbon Dioxide 25 (21-32) mmol/L Anion Gap 11 (3-11) BUN 87 H (6-23) mg/dl Creatinine 3.79 H (0.6-1.4) mg/dl Est Cr Clr Drug Dosing 19.0 ml/min Est GFR ( Amer) 17.5 ml/min Est GFR (Non-Af Amer) 15.1 ml/min BUN/Creatinine Ratio 23.0 H (10-20) Glucose 117 H (70-99(Fasting)) mg/dl Lactate 2.1 H* (0.4-2.0) mmol/L Calcium 8.6 (8.6-10.3) mg/dl Magnesium 1.4 L (1.7-2.4) mg/dl Total Bilirubin 0.8 (0.2-1.0) mg/dl Direct Bilirubin 0.2 (0-0.2) mg/dl AST 19 (13-39) U/L ALT 15 (7-52) U/L Alkaline Phosphatase 59 (34-104) U/L Troponin I High Sens 30.7 H (0-20) pg/ml Total Protein 8.2 (6.0-8.3) gm/dl Albumin 3.5 (3.4-5.0) gm/dl Procalcitonin 0.15 (0-0.5) ng/ml Urine Color Yellow Urine Appearance Cloudy A (Clear) Urine pH 5.5 (4.5-7.5) Ur Specific Swengel 1.010 (1.000-1.030) Urine Protein 1+ H (Negative) Urine Glucose (UA) Negative (Negative) Urine Ketones Negative (Negative) Urine Blood 1+ H (Negative) Urine Nitrite Positive A (Negative) Urine Bilirubin Negative (Negative) Urine Urobilinogen Negative (Negative) Ur Leukocyte Esterase 3+ H (Negative) Urine WBC (Auto) >50 H (0-5) /hpf Urine RBC (Auto) 0-2 (0-2) /hpf U Hyaline Cast (Auto) 0-2 (0-2) /lpf U Epithel Cells (Auto) 0-2 (0-2) /hpf Urine Bacteria (Auto) 4+ H (None Seen) Administered Medications Daptomycin 300 mg/ Syringe 6 mls @ 3 mls/min IV Q48H [facility], [facility]1983; Protocol Stop: 08/08/23 09:44 Last Admin: 08/01/23 11:00 Dose: 3 mls/min Documented By: CARISSA Insulin Aspart (Insulin Aspart Per Unit Charge) 0 units SC ACHS COOKIE Stop: 08/31/23 11:29 Last Admin: 08/01/23 14:02 Dose: 2 units Documented By: CORY Co-signed By: IRMA Midodrine (Midodrine Hcl 2.5 Mg Tab) 2.5 mg PO TID@0800,1200,1700 [facility], 1928–1983 Stop: 08/31/23 13:44 Last Admin: 08/01/23 14:50 Dose: 2.5 mg Documented By: CORY Discontinued Medications Sodium Chloride (Nss) 500 mls @ 999 mls/hr IV .Q31M COOKIE Stop: 08/01/23 09:30 Last Infusion: 08/01/23 10:59 Dose: Infused Documented By: Admin: 08/01/23 09:53 Dose: 999 mls/hr Documented By: CRISPIN Sodium Chloride (Nss) 250 mls @ 999 mls/hr IV .Q16M ONE Stop: 08/01/23 10:01 Last Admin: 08/01/23 09:56 Dose: Not Given Documented By: CRISPIN Magnesium Sulfate/Dextrose (Magnesium Sulfate / D5w) 1 gm in 100 mls @ 100 mls/hr IV Q1H COOKIE Stop: 08/01/23 11:45 Last Infusion: 08/01/23 12:12 Dose: Infused Documented By: Admin: 08/01/23 11:04 Dose: 100 mls/hr Documented By: Infusion: 08/01/23 10:59 Dose: Infused Documented By: Admin: 08/01/23 09:59 Dose: 100 mls/hr Documented By: CRISPIN Piperacillin Sod/Tazobactam Sod (Zosyn) 4.5 gm in 100 mls @ 200 mls/hr IV NOW ONE Stop: 08/01/23 11:59 Last Infusion: 08/01/23 12:20 Dose: Infused Documented By: Admin: 08/01/23 11:44 Dose: 200 mls/hr Documented By: CORY Potassium Chloride (Potassium Chloride Crtab 20 Meq Tabcr) 40 meq PO NOW STA Stop: 08/01/23 10:49 Last Admin: 08/01/23 11:01 Dose: 40 meq Documented By: CARISSA Imaging Data Radiologist's Impression: Chest X-Ray 08/01/23 08:56 XR chest 1V portable HISTORY: 73 years-old Male Sepsis acute sepsis COMPARISON: 06/14/2023 TECHNIQUE: AP view of the chest FINDINGS: Cardiac silhouette is enlarged. Single lead left subclavian pacer. Lungs are clear. No pneumothorax or pleural effusion. Cervical spinal fusion hardware. Bones are grossly intact. IMPRESSION: Cardiomegaly without acute process. ACT 112: Negative or not required by law. The above report was generated using voice recognition software. It may contain grammatical, syntax or spelling errors. Electronically signed by: Monroe Lloyd M.D. 08/01/2023 9:40 AM Discharge Plan Visit Data Chief Complaint: Infection, Wound Stated Complaint: right leg infection ED Provider: Jin Reza Discharge Problem: Cellulitis of right lower extremity, Diabetic ulcer of right foot, Acute UTI Patient Disposition: Admitted As Inpatient Discharge Instructions Interventions: ED Discharge Assessment Last Done: 08/01/23 13:33 Discharge Problem: Diabetic ulcer of right foot Qualifiers: Diabetic foot ulcer location: unspecified part of foot
[2023-08-01 09:17] LABS: Basophils # (auto) 0.01 K/uL (0.00-0.20); Basophils % (auto) 0.1 %; Hematocrit (blood only) 31.5 % (42.0-52.0); Hemoglobin 10.4 g/dl (14.0-18.0); Immature Granulocytes # (auto) 0.03 K/uL (0.01-0.20); Immature Granulocytes % (auto) 0.3 %; Lymphocytes # (auto) 1.08 K/uL (1.20-3.40); Lymphocytes % (auto) 10.4 %; Mean Corpuscular Hemoglobin 28.2 pg (25.0-34.0); Mean Corpuscular Volume 85.4 fL (80.0-100.0); Mean Platelet Volume 11.3 fL (9.4-12.4); Monocytes # (auto) 0.65 K/uL (0.11-0.59); Monocytes % (auto) 6.2 %; Neutrophils # (auto) 8.55 K/uL (1.40-6.50); Platelet Count 166 K/uL (130-400); RDW Coefficient of Variation 14.4 % (11.5-14.5); RDW Standard Deviation 44.4 fL (36.4-46.3); Red Blood Count 3.69 M/uL (4.70-6.10); White Blood Count 10.42 K/ul (4.8-10.8)
--- OUTSIDE RECORDS SUMMARY | 2023-08-01 09:28 | External Medical Summary | Summary of Care ---
Author Name Unknown Organization [facility] Address [address] [facility] [address] Phone [phone] Care Team Providers Care Breakfast Bar Attendant Name Role Phone Jocelyne Desai DO Primary Care Provider + [phone] Reason for Visit * Reason Onset Date Comments Medication Refill 07/25/2023 Encounter Details Date Type Department Care Team (Late st Contact Info) Description 07/25/2023 Refill NephrologyCely 200 [facility] [place] [address] Ladonna Fatima MD [address] [facility] [place] [address] Allergies No known active allergiesdocumented as of this encounter (statuses as of 07/25/2023) Medications Medication Sig Dispensed Refills Start Date End Date Status ACETAMINOPHEN 500 MG PO TABS 2 tabs every 6 hours as needed for discomfort 11/01/2013 Active Acetaminophen 325 MG Oral Tablet (Tylenol) Take 2 Tablets by mouth every 4 hours as needed for Fever >38C(100.5F) or Pain, Mild. 06/28/2023 Active Boost Oral Liquid Take 237 mL by mouth in the morning and 237 mL at noon and 237 mL in the evening. Take before meals. 237 mL 07/05/2023 Active Vitamin D3 50 MCG (2000 UT) Oral Capsule Take 1 Capsule by mouth every evening. 30 Capsule 07/05/2023 Active Vitamin B-12 1000 MCG Oral Tablet (Cyanocobalamin) Take 1 Tablet by mouth every evening. 30 Tablet 07/05/2023 Active Flintstones w/Iron 18 MG Oral Tablet Chewable Take 1 Tablet by mouth every evening. 30 Tablet 07/05/2023 Active Magnesium Oxide 400 MG Oral Capsule Take 1 Capsule by mouth in the morning. 30 Capsule 07/05/2023 Active oxyCODONE HCl 5 MG Oral Tablet (Oxy IR) Take 1 Tablet by mouth every 6 hours as needed for Pain, Moderate or Pain, Severe. 30 Tablet 07/05/2023 Active Additional Information Patient not taking.Reported on 07/19/2023 Sennosides-Docus ate Sodium 8.6-50 MG Oral Tablet (Senna S) Take 1 Tablet by mouth in the morning. 30 Tablet 07/05/2023 Active Potassium Chloride Candi ER 20 MEQ Oral Tablet Extended Release Take 1 Tablet by mouth in the morning and 1 Tablet before bedtime. 200 Tablet 3 07/25/2023 Active Potassium Chloride Candi ER 20 MEQ Oral Tablet Extended Release Take 1 Tablet by mouth in the morning and 1 Tablet before bedtime. 60 Tablet 07/19/2023 Discontinue d(Refill) documented as of this encounter (statuses as of 07/25/2023) Active Problems Patient Care Coordination No te Formatting of this note migh t be different from the original. Good connectivity [facility] for wound care [phone] Televideo if needed. 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 He has significant history DM and PVD and recommended he still follow up with podiatry,. 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 SPINAL STENOSIS-LUMBAR 09/23/2002 Vitamin D deficiency Cervical spinal stenosis documented as of this encounter (statuses as of 07/25/2023) Resolved Problems Problem Noted Date Diagnosed Date [...] use tape directly on skin--secure dressings with jsoe wrap and tape the jose wrap. Continue [...] 11/17/19 23 LUMBAGO 12/24/2002 05/09/2007 LOC PRIM [id number] 12/24/200208/13 DEGENERATIVE SKIN DISORD 12/24/2002 VERTEBRAL FX [...] as of this encounter (statuses as of 07/25/2023) Immunizations Name Administration Dates Next Due COVID-19 [...] Influenza, Trivalen t, Adjuvanted, 65+ yrs 11/27/2018 TDAP, Age 7 and older, IM (Adacel) 10/11/2007 Zoster Vaccine Recombinant (Shingrix) 01/08/2019 ,10/04/2018 [...] encounter Miscellaneous Notes * Telephone Encounter - Ladonna Fatima MD - 07/25/2023 1:17 PM EDTSigned Prescriptions: Disp Refills Potassium Chloride Candi ER 20 MEQ Oral Tab*200 Ta*3 Sig: Take 1 Tablet by mouth in the morning and 1 Tablet before bedtime. Authorizing Provider: LADONNA FATIMA * Telephone Encounter - Tiffany Alegria, hospice physician - 07/25/2023 9:01 AM EDT Patient has [employer] for their insurance, which prefers 100-day supplies on their maintenancemedications. Pended RXs as such. Please review and approve if appropriate. Thank you, Tiffany Alegria Jewellery Designer I Centralized Clinical Pharmacy Services (Formerly Telepharmacy) 07/25/2023, 9:02 AM Did you pend patient's preferred pharmacy and medication before forwarding?yes Pharmacy: [facility] Pending Prescriptions: Disp Refills Potassium Chloride Candi ER 20 MEQ Oral Ta*200 Ta*3 Sig: Take 1 Tablet by mouth in the morning and 1 Tablet before bedtime. Last Visit: Visit date not found (in office), 08/05/2019 (telemedicine) Next Visit: Visit date not found If no future appointments scheduled, and last appointment is greater than a year ago, please schedule patient for a follow-up appointment Last date the medication was ordered: 07/19/23 Is this request for a controlled substance?No Urine Drug Screen:No results found. However, due to the size of the patient record, not all encounters were searched. Please check Results Review for a complete set of results. Patient Phone Numbers Labs: Lab Results Component Value Date/Time CREAT 2.1 (H) 07/18/2023 01:34 PM CREAT 1.48 (A) 04/13/2022 12:00 AM CREAT 1.7 (H) 11/18/2019 01:37 PM POTASSIUM 3.7 07/18/2023 01:34 PM POTASSIUM 4.4 04/13/2022 12:00 AM POTASSIUM 4.9 11/18/2019 01:37 PM TSH 3.38 12/13/2018 03:57 PM LDLCALC 38 11/16/2022 03:20 PM LDLCALC 39 10/17/2019 12:25 PM LDLDIRECT NOT APPLICABLE 10/17/2019 12:25 PM LDLDIRECT 87 12/04/2006 08:33 AM ALT 18 01/17/2023 09:04 AM ALT 23 10/17/2019 12:25 PM HGBA1C 6.5 (H) 11/16/2022 03:20 PM HGBA1C 7.4 (H) 10/17/2019 12:25 PM documented in this encounter Plan of Treatment Upcoming Encounters Date Type Department Care Team (Late st Contact Info) Description 08/01/2023 5:25 PM EDT Anticoagulation Centralized Clinical Pharmacy Services, Ilya Lafleur [address] [place] [address] [place] [address] [place] [phone] 60 [facility] [place] [address] 08/31/2023 1:00 PM EDT Office Visit Family Medicine [address] [place] [phone] Savanna Al PA-C [address] [place] [address] [place] [address] 11/20/2023 2:00 PM EDT Office Visit Nephrology [address] [place] [address] Marycarmen Kowalski [facility]C [facility] [address] 02/20/2024 12:30 PM EST Nurse Only Ancillary [address] [place] [address] Marle[place], Nurse Annual [address] [place] [address] 03/08/2024 2:30 PM EST Office Visit Family Medicine [address] [place] [phone] Jocelyne Desai, [address] [place] [address] Scheduled Procedures Name Priority Associated Diagnoses Date/Ti me COLONOSCOPY FLEXIBLE PROXIMA L DIAGNOSTIC Recall Screening for colon cancer Health Maintenance Due Date Last Done Comments Cologuard 1997 Sigmoidoscopy 1997 Fecal Occult Blood Test 09/02/2009 09/02/2008, 05/04 Diabetic Eye Exam 12/30/2022 12/30/2021, , 12/28/2021, Additional history exists COVID-19 Vaccine (2022- season) 2023 11/16/2022, 11/16/2021, 02/16/2021, Additional history exists HbA1c 05/18/2023 11/16/2022, 10/15, 05/13/2022, Additional history exists Diabetic Foot Exam 11/17/2023 11/16/2022, 0 05/05/2021, 11/22/2017, Additional history exists GFR 01/17/2024 07/18/2023, 06/14, 07/03/2023, Additional history exists Depression Screening 02/17/2024 02/16/2023 Albumin/Creatinine Ratio 07/17/2024 024, 11/16/2022, 05/13/2022, Additional history exists CKD HGB USE SMARTSET 28481 07/17/202407/17, 07/07/2023, 07/03/2023, Additional history exists CKD PHOS USE SMARTSET 07576 07/17/2024 06/0 05/2023, 07/03/2023, 11/16/2022, Additional history exists DTaP,Tdap,and Td Vaccines (3 - Td or Tdap) 12/01/2028 12/01/2018, 10/11/2007 Colonoscopy 09/09/2031 09/08/2021, 08/14, 09/23/2010 Colorectal Cancer Screening 09/09/2031 Hepatitis B Completed 11/11/2002, 05/15, 05/13/2002 Pneumococcal Vaccine: 65+ Years Completed 11/27/2018, 11/01/2017, 09/28/2005 Zoster Vaccines Completed 01/08/2019, 10/04/2018 Influenza Vaccine (FLU shot) Completed 05/2022, 11/09/2021, 10/16/2020, Additional history exists GARDASIL-HPV IMMUNIZATION SERIES Aged Out No longer eligible based on patient's age to complete this topic MENINGOCOCCAL (MENACTRA/MENVEO) Aged Out No longer eligible based on patient's age to complete this topic documented as of this encounter Medical Devices Implanted Type Area Brim Shaper Device Identifier Shelf Expiration Date Model / Serial / Lot Shaft Fibula 6cm [id number] - [id number] Implanted:Qty: 1 on 09/05/2008 at OR [facility] Tissue - Human N/A: Spine Cervical MUSCULOSKELETAL TRANSPLANT FND 04/20/2010 [id number] / [id number] / Stent Eso Gw 22x70 [id number] - [id number] Implanted:Qty: 1 on 01/21/2008 at OR [facility] N/A: Esophagus AL[employer]US INC 04/12/2009 [id number] / / [id number] Depuy Uniplate 32 Implanted:Qty: 1 on 09/05/2008 at OR [facility] N/A: Spine Cervical TAMMY & TAMMY DEPUY 1897-02-302 / / Depuy Uniplate Screw 14mm Implanted:Qty: 2 on 09/05/2008 at OR [facility] N/A: Spine Cervical TAMMY & TAMMY DEPUY 1897-06-017 / / Depuy Lordotic Bengal Cage Implanted:Qty: 1 on 05/07/2010 at OR [facility] N/A: Neck [id number] / [id number] / Plate Zach 3 Level Ti 54mm - [id number] Implanted:Qty: 1 on 05/07/2010 at OR [facility] N/A: Neck JNJ : DEPUY SPINE [id number] / / Screw Zach Const St Ti 14mm - [id number] Implanted:Qty: 4 on 05/07/2010 at OR [facility] N/A: Neck JNJ : DEPUY SPINE [id number] / / Screw 3.5x14 Mntr Fa [id number] - [id number] Implanted:Qty: 8 on 05/07/2010 at OR [facility] N/A: Spine Cervical JNJ : ETHICON CARDIOVATIONS [id number] / / Jarrell [id number] - [id number] Implanted:Qty: 1 on 05/07/2010 at OR [facility] N/A: Spine Cervical JNJ : ETHICON CARDIOVATIONS [id number] / / Screw Inner Mntr [id number] - [id number] Implanted:Qty: 8 on 05/07/2010 at OR [facility] N/A: Spine Cervical JNJ : ETHICON CARDIOVATIONS [id number] / / Envista Intraocular Lens Implanted:Qty: 1 on 03/10/2022 by Liang Marshall MD at OR [facility] Right: Eye BAUSCH & LOMB 08/13/2023 [id number] / [id number] / [id number] Envista Intraocular Lens Implanted:Qty: 1 on 03/24/2022 by Liang Marshall MD at OR [facility] Left: Eye BAUSCH & LOMB 07/13/2024 [id number] / [id number] / [id number] documented as of this encounter Advance Directives Documents on File Type Date Recorded Patient Extractions Technologist Expl anation POLST 01/26/2021 [place] [facility]-SUSTAINING TREATMENT * No Code (Latest Code Status on File) Date Activated Date Inactivated Comments 03/24/2022 7:56 AM 03/24/2022 1:57 PM This order ref lects the patients wishes and were consensually agreed upon. Question Answer Comments Discussion of Advance Directives occurred with: Patient Does the patient have a Living Will? No Does the patient have Health Care Power of Attor andrew? No * No Code Date Activated Date Inactivated Comments 03/10/2022 7:41 AM 03/10/2022 2:02 PM This order r eflects the patients wishes and were consensually agreed upon. Question Answer Comments Discussion of Advance Directives occurred with: Patient Does the patient have a Living Will? No Does the patient have Health Care Power of Attor andrew? No * Full Code Date Activated Date Inactivated Comments 05/07/2010 8:55 AM 05/11/2010 9:01 PM This order r eflects the patients wishes and were consensually agreed upon. Question Answer Comments Discussion of Advance Directives occurred with: Patient Does the patient have a Living Will? No Does the patient have Health Care Power of Attor andrew? No * Full Code Date Activated Date Inactivated Comments 05/07/2010 6:07 AM 05/07/2010 8:55 AM This order r eflects the patients wishes and were consensually agreed upon. Question Answer Comments Discussion of Advance Directives occurred with: Patient * Full Code Date Activated Date Inactivated Comments 09/05/2008 6:00 PM 09/09/2008 6:18 PM This order r eflects the patients wishes and were consensually agreed upon. Question Answer Comments Discussion of Advance Directives occurred with: Not Discussed Does the patient have a Living Will? No Does the patient have Health Care Power of Attor andrew? No Care Teams Breakfast Bar Attendant Relationship Specialty Start Date End Date Jocelyne Desai DO [address] [place] [address] [place] [address] PCP - General Internal Medicine 11/09/16 documented as of this encounter
--- OUTSIDE RECORDS SUMMARY | 2023-08-01 09:28 | External Medical Summary | Summary of Care ---
Author Name Unknown Organization [facility] Address [address] [facility] [place] [address] Phone [phone] Care Team Providers Care Media Specialist Name Role Phone Jocelyne Desai DO Primary Care Provider Reason for Visit * Reason Onset Date Comments Advice 07/26/2023 Encounter Details Date Type Department Care Team (Late st Contact Info) Description 07/26/2023 Telephone Family Medicine [address] [place] [phone] Jocelyne Desai DO [address] [place] [address] [place] [address] Advice Allergies No known active allergiesdocumented as of this encounter (statuses as of 07/26/2023) Medications Medication Sig Dispensed Refills Start Date [...] Additional Information Patient not taking.Reported on 07/19/2023 Sennosides-Docusat e Sodium 8.6-50 MG Oral Tablet (Senna S) Take 1 Tablet by mouth in the morning. 30 Tablet 07/05/2023 Active Midodrine HCl 2.5 MG Oral Tablet (Proamatine) Take 1 Tablet by mouth in the morning and 1 Tablet at noon and 1 Tablet in the evening. 90 Tablet 2 07/25/2023 Active Potassium Chloride Candi ER 20 MEQ Oral Tablet Extended Release Take 1 Tablet by mouth in the morning and 1 Tablet before bedtime. 200 Tablet 3 07/25/2023 Active Aspirin 81 MG Oral Tablet Delayed Release Take 1 Tablet by mouth every evening. 100 Tablet 3 07/25/2023 Active Atorvastatin Calcium 40 MG Oral Tablet (Lipitor) Take 1 Tablet by mouth daily. 100 Tablet 2 07/25/2023 Active Cyclobenzaprine HCl 10 MG Oral Tablet (Flexeril) Take 1 Tablet by mouth every 8 hours as needed for Muscle spasms. 270 Tablet 07/25/2023 Active Metoprolol Succinate ER 25 MG Oral Tablet Extended Release 24 Hour (toPROL XL) Take 1 Tablet by mouth in the morning. 100 Tablet 3 07/25/2023 Active Ozempic (0.25 or 0.5 MG/DOSE) 2 MG/3ML Solution Pen-injector (Semaglutide(0.25 or 0.5MG/DOS)) Inject 0.25 mg under the skin once a week. 6 mL 07/25/2023 Active Soaanz 40 MG Oral Tablet (Torsemide) Take 1 Tablet by mouth in the morning and 1 Tablet before bedtime. 200 Tablet 3 07/25/2023 Active Tamsulosin HCl 0.4 MG Oral Capsule (Flomax) Take 1 Capsule by mouth in the morning. 100 Capsule 3 07/25/2023 Active Warfarin Sodium 3 MG Oral Tablet Take 1 Tablet by mouth every evening. As per anti-coagulation clinic. 100 Tablet 3 07/25/2023 Active documented as of this encounter (statuses as of 07/26/2023) Active Problems Patient Care Coordination No te Formatting of this note migh t be different from the original. Good connectivity [facility] for wound care [phone] Televideo if needed. 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 He has significant history DM and PVD and recommended he still follow up with podiatry,. 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 SPINAL STENOSIS-LUMBAR 09/23/2002 Vitamin D deficiency Cervical spinal stenosis documented as of this encounter (statuses as of 07/26/2023) Resolved Problems Problem Noted Date Diagnosed Date Resolved Date Depression, unspecified 11/09/2021 03/2 Depression, unspecified 11/09/2021 100 05/2022 Cellulitis of right leg 07/13/202105/2022 Last Assessment & Plan: Suspect this could be early/localized. Will treat with 7 days antibiotic. If pt cannot be reassess by Dr. Braxton office early next week will need [facility] provider recheck Multiple and open wound [...] 11/17/19 23 LUMBAGO 12/24/2002 05/09/2007 LOC PRIM [id number] 12/24/200208/13 DEGENERATIVE SKIN DISORD 12/24/2002 VERTEBRAL FX [...] as of this encounter (statuses as of 07/26/2023) Immunizations Name Administration Dates Next Due COVID-19 mRNA, LNP-s, No Pre serve, 2-Dose Series (Moderna) 03/19/2020 COVID-19 mRNA, LNP-s, No Pre serve, 2-Dose Series (Pfizer) 02/16/2021,04/09/2020,03/19/2020 COVID-19, MRNA-LNP, 23-24, P F, 30 MCG/0.3 mL, 12 YRS AND ABOVE, IM (PFIZER-ComirnatNobel Hygiene) 11/16/2022 Covid-19, Mrna, Lnp-s, Pf, B ivalent, [...] encounter Miscellaneous Notes * Telephone Encounter - Roslyn Baig CMA - 07/26/2023 10:25 AM EDT faxed * Telephone Encounter - Prakash Marquez OSA - 07/26/2023 9:47 AM EDT Caller: Rick morgan [facility] Reason for call: Need most recent labs fax to clinic. Patient is there now documented in this encounter Plan of Treatment Upcoming Encounters Date Type Department Care Team (Late st Contact Info) Description 08/01/2023 5:25 PM EDT Anticoagulation Centralized Clinical Pharmacy Services, Ilya Lafleur [address] [place] [address] [place] [address] [facility], [address] [place] [address] 08/31/2023 1:00 PM EDT Office Visit Family [address] [place] [phone] Savanna Al PA-C [address] [place] [address] [place] [address] 11/20/2023 2:00 PM EDT Office Visit Nephrology [address] [place] [address] Marycarmen Kowalski PA-C [address] [place] [address] 02/20/2024 12:30 PM EST Nurse Only Ancillary [address] [place] [address] [place], Nurse Annual Wellness [address] [place] [address] [place] [address] 03/08/2024 2:30 PM EST Office Visit Family Medicine [address] [place] [phone] Jocelyne Desai, [address] [place] [address] Scheduled Procedures Name Priority Associated Diagnoses Date/Ti me COLONOSCOPY FLEXIBLE PROXIMA L DIAGNOSTIC Recall Screening for colon cancer Health Maintenance Due Date Last Done Comments Cologuard 1997 Sigmoidoscopy 1997 Fecal Occult Blood Test 09/02/2009 09/02/2008, 05/04 Diabetic Eye Exam 12/30/2022 12/30/2021, , 12/28/2021, Additional history exists COVID-19 Vaccine ( season) 2023 11/16/2022, 11/16/2021, 02/16/2021, Additional history exists HbA1c 05/18/2023 11/16/2022, 10/15, 05/13/2022, Additional history exists Diabetic Foot Exam 11/17/2023 11/16/2022, 0 05/05/2021, 11/22/2017, Additional history exists GFR 01/17/2024 07/18/2023, 06/14, 07/03/2023, Additional history exists Depression Screening 02/17/2024 02/16/2023 Albumin/Creatinine Ratio 07/17/2024 024, 11/16/2022, 05/13/2022, Additional history exists CKD HGB USE SMARTSET 31745 07/17/202407/17, 07/07/2023, 07/03/2023, Additional history exists CKD PHOS USE SMARTSET 06479 07/17/2024 06/0 05/2023, 07/03/2023, 11/16/2022, Additional history [...] this encounter Medical Devices Implanted Type Area Creative Arts Therapist Device Identifier Shelf Expiration Date Model / Serial / Lot Shaft Fibula 6cm [id number] - [id number] Implanted:Qty: 1 on 09/05/2008 at [place] [facility] Tissue - Human N/A: Spine Cervical MUSCULOSKELETAL TRANSPLANT FND 04/20/2010 [id number] / [id number] / Stent Eso Gw 22x70 [id number] - [id number] Implanted:Qty: 1 on 01/21/2008 at [place] [facility] N/A: Esophagus ALVEOLUS INC 04/12/2009 [id number] / / [id number] Depuy Uniplate 32 Implanted:Qty: 1 on 09/05/2008 at [place] [facility] N/A: Spine Cervical TAMMY & TAMMY DEPUY 1897-02-302 / / Depuy Uniplate Screw 14mm Implanted:Qty: 2 on 09/05/2008 at [place] [facility] N/A: Spine Cervical TAMMY & TAMMY DEPUY 1896-07-017 / / Depuy Lordotic Bengal Cage Implanted:Qty: 1 on 05/07/2010 at [place] [facility] N/A: Neck 1773-06-146 / [id number] / Plate Zach 3 Level Ti 54mm - [id number] Implanted:Qty: 1 on 05/07/2010 at [place] [facility] N/A: Neck JNJ : DEPUY SPINE [id number] / / Screw Zach Const St Ti 14mm - [id number] Implanted:Qty: 4 on 05/07/2010 at [place] [facility] N/A: Neck JNJ : DEPUY SPINE [id number] 14 / / Screw 3.5x14 Mntr Fa [id number] - [id number] Implanted:Qty: 8 on 05/07/2010 at [place] [facility] N/A: Spine Cervical JNJ : ETHICON CARDIOVATIONS [id number] / / Jarrell 3.5x781fh [id number] - [id number] Implanted:Qty: 1 on 05/07/2010 at [place] [facility] N/A: Spine Cervical JNJ : ETHICON CARDIOVATIONS [id number] / / Screw Inner Mntr [id number] - [id number] Implanted:Qty: 8 on 05/07/2010 at [place] [facility] N/A: Spine Cervical JNJ : ETHICON CARDIOVATIONS [id number] / / Envista Intraocular Lens Implanted:Qty: 1 on 03/10/2022 by Liang Marshall MD at OR [facility] Right: Eye BAUSCH & LOMB 08/13/2023 [id number] / [id number] / [id number] Envista Intraocular Lens Implanted:Qty: 1 on 03/24/2022 by Liang Marshall MD at OR [facility] Left: Eye BAUSCH & LOMB 07/13/2024 [id number] / [id number] / [id number] documented as of this encounter Advance Directives Documents on File Type Date Recorded Patient Tower Erector Expl anation POL 01/26/2021 [place] OR [facility] FOR LIFE-SUSTAINING TREATMENT * No Code (Latest [...] Power of Attor andrew? No Care Teams Media Specialist Relationship Specialty Start Date End Date Jocelyne Desai DO [address] [place] [address] [place] [address] PCP - General Internal Medicine 11/09/16 documented as of this encounter
--- OUTSIDE RECORDS SUMMARY | 2023-08-01 09:28 | External Medical Summary | Summary of Care ---
Author Name Unknown Organization [facility] Address [address] [facility] [place] [address] Phone [phone] Care Team Providers Care Dry Cleaning Checker Name Role Phone Silvia Armas DO Primary Care Provider + [phone] Reason for Visit * Reason Onset Date Comments Medication Refill 07/25/2023 Encounter Details Date Type Department Care Team (Late st Contact Info) Description 07/25/2023 Refill Family Medicine [address] [phone] Silvia Armas DO [address] [place] [address] [place] [address] Allergies No known active allergiesdocumented as of this encounter (statuses as of 07/31/2023) Medications Medication Sig Dispensed Refills Start Date [...] the evening. 90 Tablet 2 07/25/2023 Active Atorvastatin Calcium 40 MG Oral Tablet (Lipitor) Take 1 Tablet by mouth daily. 100 Tablet 2 07/25/2023 Active Metoprolol Succinate ER 25 MG Oral Tablet Extended Release 24 Hour (toPROL XL) Take 1 Tablet by mouth in the morning. 100 Tablet 3 07/25/2023 Active Tamsulosin HCl 0.4 MG Oral Capsule (Flomax) Take 1 Capsule by mouth in the morning. 100 Capsule 3 07/25/2023 Active Midodrine HCl 2.5 MG Oral Tablet (Proamatine) Take 1 Tablet by mouth in the morning and 1 Tablet at noon and 1 Tablet in the evening. 90 Tablet 07/05/2023 4 Discontinue d(Refill) Potassium Chloride Candi ER 20 MEQ Oral Tablet Extended Release Take 1 Tablet by mouth in the morning and 1 Tablet before bedtime. 60 Tablet 07/19/2023 4 Discontinue d(Refill) documented as of this encounter (statuses as of 07/31/2023) Active Problems Patient Care Coordination No te Formatting of this note migh t be different from the original. Good connectivity [facility] for wound care [phone] Televideo if needed. 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 He has significant history DM and PVD and recommended he still follow up with podiatry,. 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 SPINAL STENOSIS-LUMBAR 09/23/2002 Vitamin D deficiency Cervical spinal stenosis documented as of this encounter (statuses as of 07/31/2023) Resolved Problems Problem Noted Date Diagnosed Date Resolved Date Depression, unspecified 11/09/2021 03/2 Depression, unspecified 11/09/2021 100 05/2022 Cellulitis of right leg 07/13/20210 05/2022 Last Assessment & Plan: Suspect this could be early/localized. Will treat with 7 days antibiotic. If pt cannot be reassess by Dr. Braxton office early next week will need [facility] provider recheck Multiple and open wound [...] 11/17/19 23 LUMBAGO 12/24/2002 05/09/2007 LOC PRIM [id number] 12/24/200208/13 DEGENERATIVE SKIN DISORD 12/24/2002 VERTEBRAL FX [...] as of this encounter (statuses as of 07/31/2023) Immunizations Name Administration Dates Next Due COVID-19 [...] encounter Miscellaneous Notes * Telephone Encounter - Mendoza Rodriguez CPhT - 07/31/2023 11:51 AM EDT Pt calling to request Midodrine. Informed pt that RX is available at their pharmacy. Pt verbalized understanding and stated they will check with their pharmacy regarding this medication. Thank you, Mendoza Rodriguez Him [facility]oder [facility] ([facility]) 07/31/2023,11:51 AM * Telephone Encounter - Silvia Armas DO - 07/25/2023 1:09 PM EDTSigned Prescriptions: Disp Refills Midodrine HCl 2.5 MG Oral Tablet (Proamati*90 Tab*2 Sig: Take 1 Tablet by mouth in the morning and 1 Tablet at noon and 1 Tablet in the evening. Authorizing Provider: SILVIA ARMAS * Telephone Encounter - Josselyn Hernandez CPhT - 07/25/2023 8:47 AM EDT Did you pend patient's preferred pharmacy and medication before forwarding?yes Pharmacy: [facility] Pending Prescriptions: Disp Refills Midodrine HCl 2.5 MG Oral Tablet (Proamat*90 Tab*0 Sig: Take 1 Tablet by mouth in the morning and 1 Tablet at noon and 1 Tablet in the evening. Last Visit: 07/17/2023 (in office), Visit date not found (telemedicine) Next Visit: 08/31/2023 If no future appointments scheduled, and last appointment is greater than a year ago, please schedule patient for a follow-up appointment Last date the medication was ordered: 07/05/23 Is this request for a controlled substance?No [...] Anticoagulation [facility], Ilya Lafleur [address] [place] [address] [place] [address] [place] [address] 08/31/2023 1:00 PM EDT Office Visit [address] [phone] Savanna Al PA-C [address] [place] [address] [place] [address] 11/20/2023 2:00 PM EDT Office Visit Nephrology [address] [place] [address] Marycarmen Kowalski PA-C [address] [place] [address] 02/20/2024 12:30 PM EST Nurse Only Ancillary [address] [place] [address] [place], Nurse Annual [address] [place] [address] 03/08/2024 2:30 PM EST Office Visit Family Medicine [address] [place] [phone] Silvia Armas, [address] [place] [address] Scheduled Procedures Name Priority Associated Diagnoses Date/Ti [...] 0 05/05/2021, 11/22/2017, Additional history exists GFR 01/25/2024 07/26/2023, 05/2023, 07/07/2023, Additional history exists Depression Screening 02/17/2024 02/16/2023 Albumin/Creatinine Ratio 07/17/2024 024, 11/16/2022, 05/13/2022, Additional history exists CKD PHOS USE SMARTSET 66753 07/17/20240 05/2023, 07/03/2023, 11/16/2022, Additional history exists CKD HGB USE SMARTSET 87379 07/25/202407/25, 07/18/2023, 07/07/2023, Additional history exists DTaP,Tdap,and Td Vaccines (3 [...] this encounter Medical Devices Implanted Type Area Building Certifier Device Identifier Shelf Expiration Date Model / Serial / Lot Shaft Fibula 6cm [id number] - [id number] Implanted:Qty: 1 on 09/05/2008 at OR [facility] Tissue - Human N/A: Spine Cervical MUSCULOSKELETAL TRANSPLANT FND 04/20/2010 [id number] / [id number] 0P / Stent Eso Gw 22x70 12904-212 - [id number] Implanted:Qty: 1 on 01/21/2008 at OR [facility] N/A: Esophagus [employer] INC 04/12/2009 68571-697 / / [id number] Depuy Uniplate 32 Implanted:Qty: 1 on 09/05/2008 at OR [facility] N/A: Spine Cervical TAMMY & TAMMY DEPUY 1896-03-302 / / Depuy Uniplate Screw 14mm Implanted:Qty: 2 on 09/05/2008 at OR [facility] N/A: Spine Cervical TAMMY & TAMMY DEPUY 1896-07-017 / / Depuy Lordotic Bengal Cage Implanted:Qty: 1 on 05/07/2010 at OR [facility] N/A: Neck 1773-06-146 / 1773-146 / Plate Zach 3 Level Ti 54mm - [id number] Implanted:Qty: 1 on 05/07/2010 at OR [facility] N/A: Neck JNJ : DEPUY SPINE [id number] / / Screw Zach Const St Ti 14mm - [id number] Implanted:Qty: 4 on 05/07/2010 at OR [facility] N/A: Neck JNJ : DEPUY SPINE [id number] / / Screw 3.5x14 Mntr Fa [id number] - [id number] Implanted:Qty: 8 on 05/07/2010 at OR [facility] N/A: Spine Cervical JNJ : ETHICON CARDIOVATIONS [id number] / / Jarrell [id number] - [id number] Implanted:Qty: 1 on 05/07/2010 at OR [facility] N/A: Spine Cervical JNJ : ETHICON CARDIOVATIONS [id number] / / Screw Inner Mntr [id number] - [id number] Implanted:Qty: 8 on 05/07/2010 at OR [facility] N/A: Spine Cervical JNJ : ETHICON CARDIOVATIONS [id number] / / Envista Intraocular Lens Implanted:Qty: 1 on 03/10/2022 by Liang Marshall MD at OR [facility] Right: Eye BAUSCH & LOMB 08/13/2023 [id number] / [id number] / [id number] Envista Intraocular Lens Implanted:Qty: 1 on 03/24/2022 by Liang Marshall MD at OR [facility] Left: Eye BAUSCH & LOMB 07/13/2024 [id number] / [id number] / [id number] documented as of this encounter Advance Directives Documents on File Type Date Recorded 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 No Care Teams Dry Cleaning Checker Relationship Specialty Start Date End Date Silvia Armas DO [address] [place] [address] [place] [address] PCP - General Internal Medicine 11/09/16 documented as of this encounter
--- OUTSIDE RECORDS SUMMARY | 2023-08-01 09:28 | External Medical Summary | Summary of Care ---
Author Name Unknown Organization [facility] Address [address] [facility] [place] [address] Phone [phone] Care Team Providers Care Duct Layer Helper Name Role Phone Jocelyne Desai DO Primary Care Provider + [phone] Reason for Visit * Reason Onset Date Comments Medication Refill 07/25/2023 Encounter Details Date Type Department Care Team (Late st Contact Info) Description 07/25/2023 Refill Family Medicine [address] [phone] Jocelyne Desai DO [address] [place] [address] [place] [address] Allergies No known active [...] the original. Good connectivity [facility] for wound care [phone] Televideo if needed. Problem Noted Date Diagnosed [...] up with podiatry,. Letter in chart from [facility] podiatry they were unable to get [...] ICD-10 update of inactive term PLATT RESEARCH OTHER*[id number] 02/20/2007 ADVANCE DIRECTIVE INFORMATION 01/19/2005 Overview: Yes, [...] [facility] office early next week will need [facility] provider recheck Multiple and open [...] 11/17/19 23 LUMBAGO 12/24/2002 05/09/2007 LOC PRIM [id number] 12/24/200208/13 DEGENERATIVE SKIN DISORD 12/24/2002 VERTEBRAL FX [...] MCG/0.3 mL, 12 YRS AND ABOVE, IM ([facility] 11/16/2022 Covid-19, Mrna, Lnp-s, Pf, B ivalent, [...] encounter Miscellaneous Notes * Telephone Encounter - Lise Santoro RP - 07/26/2023 9:35 AM EDT Refused Prescriptions: Disp Refills Soaanz 40 MG Oral Tablet (Torsemide) 60 Tab*0 Sig: Take 1 Tablet by mouth in the morning and 1 Tablet before bedtime. Refused By: LISE SANTORO Reason for Refusal: Duplicate Request Ozempic (0.25 or 0.5 MG/DOSE) 2 MG/3ML Tameka*3 mL 0 Sig: Inject 0.25 mg under the skin once a week Refused By: LISE SANTORO< BR>Reason for Refusal: Duplicate Request * Telephone Encounter - Josselyn Hernandez CPhT - 07/25/2023 8:43 AM EDT Did you pend patient's preferred pharmacy and medication before forwarding?yes Pharmacy: [facility] Pending Prescriptions: Disp Refills Midodrine HCl 2.5 MG Oral Tablet (Proamat*90 Tab*0 Sig: Take 1 Tablet by mouth in the morning and 1 Tablet at noon and 1 Tablet in the evening. Soaanz 40 MG Oral Tablet (Torsemide) 60 Tab*0 Sig: Take 1 Tablet by mouth in the morning and 1 Tablet before bedtime. Last Visit: 07/17/2023 (in office), Visit date not found (telemedicine) Next Visit: 08/31/2023 If no future appointments scheduled, and last appointment is greater than a year ago, please schedule patient for a follow-up appointment Last date the medication was ordered: 07/05/23, Is this request for a controlled substance?No [...] Anticoagulation [facility], Ilya Lafleur [address] [place] [address] Dr. Ilya Lafleur, [place] [address] [facility], [address] [place] [address] 08/31/2023 1:00 PM EDT Office Visit Family Medicine [address] [place] [phone] Savanna Al PA-C [address] [place] [address] [place] [address] 11/20/2023 2:00 PM EDT Office Visit Nephrology [address] [place] [address] ZeMarycarmen alan PA-C [address] [place] [address] 02/20/2024 12:30 PM EST Nurse Only Ancillary [address] [place] [address] [place], Nurse Annual Wellness [address] [place] [address] [place] [address] 03/08/2024 2:30 PM EST Office Visit Family Medicine [address] [place] [phone] Jocelyne Desai, [address] [place] [address] Scheduled Procedures Name Priority Associated Diagnoses Date/Ti [...] Additional history exists CKD HGB USE SMARTSET 94345 07/17/202407/17, 07/07/2023, 07/03/2023, Additional history exists CKD PHOS USE SMARTSET 95348 07/17/2024 06/0 05/2023, 07/03/2023, 11/16/2022, Additional history [...] this encounter Medical Devices Implanted Type Area Platen Press Operator Device Identifier Shelf Expiration Date Model / Serial / Lot Shaft Fibula 6cm [id number] - [id number] Implanted:Qty: 1 on 09/05/2008 at [place] [facility] [place] Tissue - Human N/A: Spine Cervical MUSCULOSKELETAL TRANSPLANT FND 04/20/2010 [id number] / [id number] 0P / Stent Eso Gw 22x70 65410-289 - [id number] Implanted:Qty: 1 on 01/21/2008 at OR [facility] [place] N/A: Esophagus [employer]US INC 04/12/2009 34634-589 / / [id number] Depuy Uniplate 32 Implanted:Qty: 1 on 09/05/2008 at OR [facility] [place] N/A: Spine Cervical TAMMY & TAMMY DEPUY 1897-302 / / Depuy Uniplate Screw 14mm Implanted:Qty: 2 on 09/05/2008 at OR [facility] [place] N/A: Spine Cervical TAMMY & TAMMY DEPUY 1896-07-017 / / Depuy Lordotic Bengal Cage Implanted:Qty: 1 on 05/07/2010 at OR [facility] [place] N/A: Neck 1773--146 / [id number] / Plate Zach 3 Level Ti 54mm - [id number] Implanted:Qty: 1 on 05/07/2010 at OR [facility] [place] N/A: Neck JNJ : DEPUY SPINE [id number] 54 / / Screw Zach Const St Ti 14mm - [id number] Implanted:Qty: 4 on 05/07/2010 at OR [facility] [place] N/A: Neck JNJ : DEPUY SPINE [id number] 14 / / Screw 3.5x14 Mntr Fa [id number] - [id number] Implanted:Qty: 8 on 05/07/2010 at OR [facility] [place] N/A: Spine Cervical JNJ : ETHICON CARDIOVATIONS [id number] / / Jarrell [id number] - [id number] Implanted:Qty: 1 on 05/07/2010 at OR [facility] [place] N/A: Spine Cervical JNJ : ETHICON CARDIOVATIONS [id number] / / Screw Inner Mntr [id number] - [id number] Implanted:Qty: 8 on 05/07/2010 at [place] [facility] [place] N/A: Spine Cervical JNJ : ETHICON CARDIOVATIONS [id number] / / Envista Intraocular Lens Implanted:Qty: 1 on 03/10/2022 by Liang Marshall MD at [place] [facility] Right: Eye BAUSCH & LOMB 08/13/2023 [id number] / [id number] / [id number] Envista Intraocular Lens Implanted:Qty: 1 on 03/24/2022 by Liang Marshall MD at OR [facility] Left: Eye BAUSCH & LOMB 07/13/2024 [id number] / [id number] / [id number] documented as of this encounter Advance Directives Documents on File Type Date Recorded 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 No Care Teams Duct Layer Helper Relationship Specialty Start Date End Date Jocelyne Desai DO [address] [place] [address] [place] [address] PCP - General Internal Medicine 11/09/16 documented as of this encounter
--- OUTSIDE RECORDS SUMMARY | 2023-08-01 09:28 | External Medical Summary | Summary of Care ---
Author Name Unknown Organization [facility] Address [address] [facility] [place] [address] Phone [phone] Care Team Providers Care Inside Sales Trainer Name Role Phone Jocelyne Desai DO Primary Care Provider + [phone] Encounter Details Date Type Department Care Team (Late st Contact Info) Description 07/31/2023 Population Health External Data Unspecified Department Allergies [...] once a week. 6 mL 07/25/2023 Active Tamsulosin HCl 0.4 MG Oral Capsule (Flomax) Take 1 Capsule by mouth in the morning. 100 Capsule 3 07/25/2023 Active Warfarin Sodium 3 MG Oral Tablet Take 1 Tablet by mouth every evening. As per anti-coagulation clinic. 100 Tablet 3 07/25/2023 Active Torsemide 20 MG Oral Tablet (Demadex) Take 2 Tablets by mouth in the morning and 2 Tablets before bedtime. 400 Tablet 07/26/2023 Active documented as of this encounter (statuses as of 07/31/2023) Active Problems Patient Care Coordination No te Formatting of this note migh t be different from the original. Good connectivity [facility] for wound care [phone] Televideo if needed. 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 He has significant history DM and PVD and recommended he still follow up with podiatry,. Letter in chart from [facility] podiatry they were unable to get in [...] ICD-10 update of inactive term PLATT RESEARCH OTHER*[id number] 02/20/2007 ADVANCE DIRECTIVE INFORMATION 01/19/2005 Overview: Yes, [...] early next week will need [facility] provider recheck Multiple and open wound [...] 11/17/19 23 LUMBAGO 12/24/2002 05/09/2007 LOC PRIM [id number] 12/24/200208/13 DEGENERATIVE SKIN DISORD 12/24/2002 VERTEBRAL FX [...] Anticoagulation [facility] Clinical [facility]acy Services, Ilya Lafleur [address] [place] [address] [place] [address] [facility], [address] [place] [address] 08/31/2023 1:00 PM EDT Office Visit Family Medicine [address] [place] [phone] Savanna Al PA-C [address] [place] [address] [place] [address] 11/20/2023 2:00 PM EDT Office Visit Nephrology [address] [place] [address] ZeMarycarmen alan PA-C [address] [place] [address] 02/20/2024 12:30 PM EST Nurse Only Ancillary [address] [place] [address] [place], Nurse Annual Wellness [address] [place] [address] [place] [address] 03/08/2024 2:30 PM EST Office Visit Family Medicine [address] [place] [phone] Jocelyne Desai DO [address] [place] [address] [place] [address] Scheduled Procedures Name Priority Associated Diagnoses Date/Ti [...] 11/22/2017, Additional history exists GFR 01/25/2024 07/26/2023, 0605/2023, 07/07/2023, Additional history exists Depression Screening 02/17/2024 02/16/2023 Albumin/Creatinine Ratio 07/17/2024 024, 11/16/2022, 05/13/2022, Additional history exists CKD PHOS USE SMARTSET 10736 07/17/2024 06/0 05/2023, 07/03/2023, 11/16/2022, Additional history exists CKD HGB USE SMARTSET 16454 07/25/202407/25, 07/18/2023, 07/07/2023, Additional history exists DTaP,Tdap,and [...] this encounter Medical Devices Implanted Type Area Conference Planner Device Identifier Shelf Expiration Date Model / Serial / Lot Shaft Fibula 6cm [id number] - [id number] Implanted:Qty: 1 on 09/05/2008 at OR [facility] Tissue - Human N/A: Spine Cervical MUSCULOSKELETAL TRANSPLANT FND 04/20/2010 [id number] / [id number] 0P / Stent Eso Gw 22x70 87376-595 - [id number] Implanted:Qty: 1 on 01/21/2008 at OR [facility] N/A: Esophagus AL[employer]OLUS INC 04/12/2009 89719-720 / / [id number] Depuy Uniplate 32 Implanted:Qty: 1 on 09/05/2008 at OR [facility] N/A: Spine Cervical TAMMY & TAMMY DEPUY 1897-02-302 / / Depuy Uniplate Screw 14mm Implanted:Qty: 2 on 09/05/2008 at OR [facility] N/A: Spine Cervical TAMMY & TAMMY DEPUY 1897-06-017 / / Depuy Lordotic Bengal Cage Implanted:Qty: 1 on 05/07/2010 at OR [facility] N/A: Neck 1773-06-146 / 1773-06-146 / Plate Zach 3 Level Ti 54mm - [id number] Implanted:Qty: 1 on 05/07/2010 at OR [facility] N/A: Neck JNJ : DEPUY SPINE [id number] 54 / / Screw Zach Const St Ti 14mm - [id number] Implanted:Qty: 4 on 05/07/2010 at OR [facility] N/A: Neck JNJ : DEPUY SPINE [id number] 14 / / Screw 3.5x14 Mntr Fa [id number] - [id number] Implanted:Qty: 8 on 05/07/2010 at OR [facility] N/A: Spine Cervical JNJ : ETHICON CARDIOVATIONS [id number] / / Jarrell [id number] - [id number] Implanted:Qty: 1 on 05/07/2010 at OR [facility] N/A: Spine Cervical JNJ : ETHICON CARDIOVATIONS [id number] / / Screw Inner Mntr [id number] - [id number] Implanted:Qty: 8 on 05/07/2010 at OR [facility] N/A: Spine Cervical JNJ : ETHICON CARDIOVATIONS [id number] / / Envista Intraocular Lens Implanted:Qty: 1 on 03/10/2022 by Liang Marshall MD at OR [facility] Right: Eye BAUSCH & LOMB 08/13/2023 [id number] / [id number] / [id number] Envista Intraocular Lens Implanted:Qty: 1 on 03/24/2022 by Liang Marshall MD at OR [facility] Left: Eye BAUSCH & LOMB 07/13/2024 [id number] / [id number] / [id number] documented as of this encounter Advance Directives Documents on File Type Date Recorded 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 No Care Teams Inside Sales Trainer Relationship Specialty Start Date End Date Jocelyne Desai DO [address] [place] [address] [place] [phone] PCP - General Internal Medicine 11/09/16 documented as of this encounter
--- OUTSIDE RECORDS SUMMARY | 2023-08-01 09:29 | External Medical Summary | Summary of Care ---
Author Name Unknown Organization [facility] Address [address] [place] [place] [address] Phone [phone] Care Team Providers Care Button Tufter Name Role Phone Silvia Armas Primary Care Provider + [phone] Reason for Visit * Reason Onset Date Comments Medication Refill 07/25/2023 Encounter Details Date Type Department Care Team (Late st Contact Info) Description 07/25/2023 Refill Family Medicine [address] [phone] Ryanne Ramos PA-C [address] [place] [id number] Allergies No known active allergiesdocumented as [...] in the morning. 30 Capsule 07/05/2023 Active Midodrine HCl 2.5 MG Oral Tablet (Proamatine) Take 1 Tablet by mouth in the morning and 1 Tablet at noon and 1 Tablet in the evening. 90 Tablet 07/05/2023 Active oxyCODONE HCl 5 MG Oral [...] 1 Tablet before bedtime. 60 Tablet 07/19/2023 Active Aspirin 81 MG Oral Tablet Delayed [...] or 0.5 MG/DOSE) 2 MG/3ML Solution Pen-injector (Semaglutide(0.2 5 or 0.5MG/DOS)) Inject 0.25 mg under the [...] anti-coagulation clinic. 100 Tablet 3 07/25/2023 Active Aspirin 81 MG Oral Tablet Delayed Release Take 1 Tablet by mouth every evening. 30 Tablet 07/05/2023 4 Discontinue d(Refill) Atorvastatin Calcium 40 MG Oral Tablet (Lipitor) Take 1 Tablet by mouth daily. 100 Tablet 2 07/05/2023 4 Discontinue d(Refill) Cyclobenzaprine HCl 10 MG Oral Tablet (Flexeril) Take 1 Tablet by mouth every 8 hours as needed for Muscle spasms. 30 Tablet 07/05/2023 4 Discontinue d(Refill) Metoprolol Succinate ER 25 MG Oral Tablet Extended Release 24 Hour (toPROL XL) Take 1 Tablet by mouth in the morning. 100 Tablet 3 07/05/2023 4 Discontinue d(Refill) Ozempic (0.25 or 0.5 MG/DOSE) 2 MG/3ML Solution Pen-injector (Semaglutide(0.2 5 or 0.5MG/DOS)) Inject 0.25 mg under the skin once a week 3 mL 07/05/2023 4 Discontinue d(Refill) Soaanz 40 MG Oral Tablet (Torsemide) Take 1 Tablet by mouth in the morning and 1 Tablet before bedtime. 60 Tablet 07/05/2023 4 Discontinue d(Refill) Tamsulosin HCl 0.4 MG Oral Capsule (Flomax) Take 1 Capsule by mouth in the morning. 100 Capsule 3 07/05/2023 4 Discontinue d(Refill) Warfarin Sodium 3 MG Oral Tablet Take 1 Tablet by mouth every evening. As per anti-coagulation clinic. 30 Tablet 07/05/2023 4 Discontinue d(Refill) documented as of this encounter (statuses as of 07/25/2023) Active Problems Patient Care Coordination No te Formatting of this note migh t be different from the original. Good connectivity [facility] for wound care [phone] Televideo if needed. Problem Noted Date Diagnosed Date MRSA (methicillin resistant Staphylococcus aureu s) 06/30/2023 Orthostatic hypotension 06/30/2023 Pressure injury of buttock, stage 2 06/30/2023 Full code status 06/28/2023 Calculus of gallbladder with out cholecystitis without obstruction 06/28/2023 Stasis ulcer 06/28/2023 History of GA (myocardial infarction) 11/09/2021 Trigger [...] chart from [facility] podiatry they were unable to get in [...] ICD-10 update of inactive term PLATT RESEARCH OTHER*[id number] 02/20/2007 ADVANCE DIRECTIVE INFORMATION 01/19/2005 Overview: Yes, [...] 11/17/19 23 LUMBAGO 12/24/2002 05/09/2007 LOC PRIM [id number] 12/24/200208/13 DEGENERATIVE SKIN DISORD 12/24/2002 VERTEBRAL FX [...] encounter Miscellaneous Notes * Telephone Encounter - Alyx Burroughs [facility] - 07/25/2023 9:59 AM EDT Pending Prescriptions: Disp Refills Aspirin 81 MG Oral Tablet Delayed Release 100 Ta*3 Sig: Take 1 Tablet by mouth every evening. Cyclobenzaprine HCl 10 MG Oral Tablet (Fle*270 Ta*0 Sig: Take 1 Tablet by mouth every 8 hours as needed for Muscle spasms. Ozempic (0.25 or 0.5 MG/DOSE) 2 MG/3ML Tameka*6 mL 0 Sig: Inject 0.25 mg under the skin once a week. Soa anz 40 MG Oral Tablet (Torsemide) 200 Ta*3 Sig: Take 1 Tablet by mouth in the morning and 1 Tablet before bedtime. Warfarin Sodium 3 MG Oral Tablet 100 Ta*3 Sig: Take 1 Tablet by mouth every evening. As per anti-coagulation clinic. Signed Prescriptions: Disp Refills Atorvastatin Calcium 40 MG Oral Tablet (Li*100 Ta*2 Sig: Take 1 Tablet by mouth daily. Authorizing Provider: SILVIA ARMAS Ordering User: ALYX BURROUGHS Metoprolol Succinate ER 25 MG Oral Tablet *100 Ta*3 Sig: Take 1 Tablet by mouth in the morning. Authorizing Provider: SILVIA ARMAS Ordering User: ALYX BURROUGHS Tamsulosin HCl 0.4 MG Oral Capsule (Flomax)100 Ca*3 Sig: Take 1 Capsule by mouth in the morning. Authorizing Provider: SILVIA ARMAS Ordering User: ALYX BURROUGHS * Telephone Encounter - Alyx Burroughs RPh - 07/25/2023 9:56 AM EDT Discharged from [facility] on 07/08/23 * Telephone Encounter - Tiffany Alegria CPhT - 07/25/2023 9:12 AM EDT Patient has [employer] for their insurance, which prefers 100-day supplies on their maintenancemedications. Pended RXs as such. Please review and approve if appropriate. Thank you, Tiffany Alegria Therapist Occupational I Centralized Clinical Pharmacy Services (Formerly Telepharmacy) 07/25/2023, 9:32 AM Did you pend patient's preferred pharmacy and medication before forwarding?yes Pharmacy: [facility] Pending Prescriptions: Disp Refills Aspirin 81 MG Oral Tablet Delayed Release 100 Ta*3 Sig: Take 1 Tablet by mouth every evening. Atorvastatin Calcium 40 MG Oral Tablet (L*100 Ta*3 Sig: Take 1 Tablet by mouth daily. Cyclobenzaprine HCl 10 MG Oral Tablet (Fl*30 Tab*3 Sig: Take 1 Tablet by mouth every 8 hours as needed for Muscle spasms. Metoprolol Succinate ER 25 MG Oral Tablet*100 Ta*3 Sig: Take 1 Tablet by mouth in the morning. Ozempic (0.25 or 0.5 MG/DOSE) 2 MG/3ML So*3 mL 0 Sig: Inject 0.25 mg under the skin once a week Soaanz 40 MG Oral Tablet (Torsemide) 200 Ta*3 Sig: Take 1 Tablet by mouth in the morning and 1 Tablet before bedtime. Tamsulosin HCl 0.4 MG Oral Capsule (Floma*100 Ca*3 Sig: Take 1 Capsule by mouth in the morning. Warfarin Sodium 3 MG Oral Tablet 100 Ta*3 Sig: Take 1 Tablet by mouth every evening. As per anti-coagulation clinic. Last Visit: Visit date not found (in office), Visit date not found (telemedicine) Next Visit: Visit date not found [...] Centralized Clinical Pharmacy Services, Ilya Lafleur [address] [place] [address] [place] [address] [place] [address] [address] [facility] [place] [address] 08/31/2023 1:00 PM EDT Office Visit Family Medicine [address] [place] [phone] Savanna Al PA-C [address] [place] [address] [place] [address] 11/20/2023 2:00 PM EDT Office Visit Nephrology [address] [place] [address] Marycarmen Kowalski PA-C [address] [place] [address] 02/20/2024 12:30 PM EST Nurse Only Ancillary [address] [place] [address] [place], Nurse Annual [address] [place] [address] 03/08/2024 2:30 PM EST Office Visit Family Medicine [address] [place] [phone] [address] [place] [address] Scheduled Procedures Name Priority Associated Diagnoses Date/Ti [...] Additional history exists CKD HGB USE SMARTSET 25208 07/17/202407/17, 07/07/2023, 07/03/2023, Additional history exists CKD PHOS USE SMARTSET 78082 07/17/2024 06/0 05/2023, 07/03/2023, 11/16/2022, Additional history [...] this encounter Medical Devices Implanted Type Area Smooth And Burr Worker Composites Device Identifier Shelf Expiration Date Model / Serial / Lot Shaft Fibula 6cm [id number] - [id number] Implanted:Qty: 1 on 09/05/2008 at [place] [facility] [place] Tissue - Human N/A: Spine Cervical MUSCULOSKELETAL TRANSPLANT FND 04/20/2010 [id number] / [id number] / Stent Eso Gw 22x70 [id number] - [id number] Implanted:Qty: 1 on 01/21/2008 at [place] [facility] [place] N/A: Esophagus ALVEOLUS INC 04/12/2009 [id number] / / [id number] Depuy Uniplate 32 Implanted:Qty: 1 on 09/05/2008 at [place] [facility] [place] N/A: Spine Cervical TAMMY & TAMMY DEPUY 1897-02-302 / / Depuy Uniplate Screw 14mm Implanted:Qty: 2 on 09/05/2008 at [place] [facility] [place] N/A: Spine Cervical TAMMY & TAMMY DEPUY 1897-06-017 / / Depuy Lordotic Bengal Cage Implanted:Qty: 1 on 05/07/2010 at [place] [facility] [place] N/A: Neck 1773-06-146 / [id number] / Plate Zach 3 Level Ti 54mm - [id number] Implanted:Qty: 1 on 05/07/2010 at OR [facility] [place] N/A: Neck JNJ : DEPUY SPINE [id number] / / Screw Zach Const St Ti 14mm - [id number] Implanted:Qty: 4 on 05/07/2010 at OR [facility] [place] N/A: Neck JNJ : DEPUY SPINE [id number] / / Screw 3.5x14 Mntr Fa [id number] - [id number] Implanted:Qty: 8 on 05/07/2010 at OR [facility] [place] N/A: Spine Cervical JNJ : ETHICON CARDIOVATIONS [id number] / / Jarrell [id number] - [id number] Implanted:Qty: 1 on 05/07/2010 at OR [facility] [place] N/A: Spine Cervical JNJ : ETHICON CARDIOVATIONS [id number] / / Screw Inner Mntr [id number] - [id number] Implanted:Qty: 8 on 05/07/2010 at OR [facility] [place] N/A: Spine Cervical JNJ : ETHICON CARDIOVATIONS [id number] / / Envista Intraocular Lens Implanted:Qty: 1 on 03/10/2022 by Liang Marshall MD at OR [facility] Right: Eye BAUSCH & LOMB 08/13/2023 [id number] / [id number] / [id number] Envista Intraocular Lens Implanted:Qty: 1 on 03/24/2022 by Liang Marshall MD at OR [facility] Left: Eye BAUSCH & LOMB 07/13/2024 [id number] / [id number] / [id number] documented as of this encounter Advance Directives Documents on File Type Date Recorded Patient Interventional Radiologist Expl anation POLST 01/26/2021 [place] [facility] [...] Power of Attor andrew? No Care Teams Button Tufter Relationship Specialty Start Date End Date Silvia Armas DO [address] [place] [address] [place] [address] PCP - General Internal Medicine 11/09/16 documented as of this encounter
--- OUTSIDE RECORDS SUMMARY | 2023-08-01 09:29 | External Medical Summary | Summary of Care ---
Author Name Unknown Organization [facility] Address [address] [facility] [address] Phone [phone] Care Team Providers Care Service Sprinkler Helper Name Role Phone Jocelyne Desai Primary Care Provider [phone] Reason for Visit * Reason Onset Date Comments Outpatient Testing 07/20/2023 Encounter Details Date Type Department Care Team (Late st Contact Info) Description 07/20/2023 Telephone Nephrology, Cely Zaldivar [address] [facility] [place] [address] Jennifer Agustin MD [address] [facility] [place] [address] Outpatient Testing Allergies No known active allergiesdocumented as of this encounter (statuses as of 07/20/2023) Medications Medication Sig Dispensed Refills Start Date End Date Status ACETAMINOPHEN 500 MG PO TABS 2 tabs every 6 hours as needed for discomfort 11/01/2013 Active Acetaminophen 325 MG Oral Tablet (Tylenol) Take 2 Tablets by mouth every 4 hours as needed for Fever >38C(100.5F) or Pain, Mild. 06/28/2023 Active Aspirin 81 MG Oral Tablet Delayed Release Take 1 Tablet by mouth every evening. 30 Tablet 07/05/2023 Active Atorvastatin Calcium 40 MG Oral Tablet (Lipitor) Take 1 Tablet by mouth daily. 100 Tablet 2 07/05/2023 Active Boost Oral Liquid Take 237 mL [...] mouth every evening. 30 Tablet 07/05/2023 Active Cyclobenzaprine HCl 10 MG Oral Tablet (Flexeril) Take 1 Tablet by mouth every 8 hours as needed for Muscle spasms. 30 Tablet 07/05/2023 Active Flintstones w/Iron 18 MG Oral Tablet Chewable Take 1 Tablet by mouth every evening. 30 Tablet 07/05/2023 Active Magnesium Oxide 400 MG Oral Capsule Take 1 Capsule by mouth in the morning. 30 Capsule 07/05/2023 Active Metoprolol Succinate ER 25 MG Oral Tablet Extended Release 24 Hour (toPROL XL) Take 1 Tablet by mouth in the morning. 100 Tablet 3 07/05/2023 Active Midodrine HCl 2.5 MG Oral [...] Additional Information Patient not taking.Reported on 07/19/2023 Ozempic (0.25 or 0.5 MG/DOSE) 2 MG/3ML Solution Pen-injector (Semaglutide(0.25 or 0.5MG/DOS)) Inject 0.25 mg under the skin once a week 3 mL 07/05/2023 Active Sennosides-Docusat e Sodium 8.6-50 MG Oral Tablet (Senna S) Take 1 Tablet by mouth in the morning. 30 Tablet 07/05/2023 Active Soaanz 40 MG Oral Tablet (Torsemide) Take 1 Tablet by mouth in the morning and 1 Tablet before bedtime. 60 Tablet 07/05/2023 Active Tamsulosin HCl 0.4 MG Oral Capsule (Flomax) Take 1 Capsule by mouth in the morning. 100 Capsule 3 07/05/2023 Active Warfarin Sodium 3 MG Oral Tablet Take 1 Tablet by mouth every evening. As per anti-coagulation clinic. 30 Tablet 07/05/2023 Active Potassium Chloride Candi ER 20 MEQ Oral Tablet Extended Release Take 1 Tablet by mouth in the morning and 1 Tablet before bedtime. 60 Tablet 07/19/2023 Active documented as of this encounter (statuses as of 07/20/2023) Active Problems Patient Care Coordination No te Formatting of this note migh t be different from the original. Good connectivity [facility] for wound care [phone] Televideo if needed. 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 He has significant history DM and PVD and recommended he still follow up with podiatry,. Letter in [facility] from [facility] podiatry they were unable to [...] ICD-10 update of inactive term PLATT RESEARCH OTHER*[id number] 02/20/2007 ADVANCE DIRECTIVE INFORMATION 01/19/2005 Overview: Yes, Patient instructed to provide copy of advance directive for provider to review and to be scanned into Electronic Medical Record No, Advance Directive brochure given to patient at prior appointment. SPINAL STENOSIS-LUMBAR 09/23/2002 Vitamin D deficiency Cervical spinal stenosis documented as of this encounter (statuses as of 07/20/2023) Resolved Problems Problem Noted Date Diagnosed Date Resolved Date Depression, unspecified 11/09/2021 03/2 Depression, unspecified 11/09/202105/2022 Cellulitis of right leg 07/13/202105/2022 Last Assessment & Plan: Suspect this could be early/localized. Will treat with 7 days antibiotic. If pt cannot be reassess by Dr. Braxton office early next week will need [facility] provider recheck Multiple and open wound [...] LDL below 160 06/12/2006 10/13/2006 Mixed dyslipidemia 12/24/200501/20/ 9 Overview: Per Lipid Taxonomy. DIAB RENAL [...] 11/17/19 23 LUMBAGO 12/24/2002 05/09/2007 LOC PRIM [id number] 12/24/200208/13 DEGENERATIVE SKIN DISORD 12/24/2002 VERTEBRAL FX [...] as of this encounter (statuses as of 07/20/2023) Immunizations Name Administration Dates Next Due COVID-19 mRNA, LNP-s, No Pre serve, 2-Dose Series (Moderna) 03/19/2020 COVID-19 mRNA, LNP-s, No Pre serve, 2-Dose Series (Pfizer) 02/16/2021,04/09/2020,03/19/2020 COVID-19, MRNA-LNP, 23-24, P F, 30 MCG/0.3 mL, 12 YRS AND ABOVE, IM ([facility]) 11/16/2022 Covid-19, Mrna, Lnp-s, Pf, B ivalent, [...] encounter Miscellaneous Notes * Telephone Encounter - Libby Hurd RN - 07/20/2023 9:33 AM EDT Orders placed for follow up labs prior to November appointment. * Telephone Encounter - Libby Hurd RN - 07/20/2023 9:24 AM EDT ----- Message from Jennifer Agustin MD sent at 07/19/2023 2:33 PM EDT ----- Needs bmp, mag, uacm, prot/creat, aCR, cbc/d, t sat; jarrell labs before next vsiit documented in this encounter Plan of Treatment Upcoming Encounters Date Type Department Care Team (Late st Contact Info) Description 08/01/2023 5:25 PM EDT Anticoagulation Centralized Clinical Pharmacy Services, Ilya Lafleur [address] [place] [address] [place] [address] [facility] [address] [facility] [place] [address] 08/31/2023 1:00 PM EDT Office Visit [address] [phone] Savanna Al PA-C [address] [place] [address] [place] [address] 11/20/2023 2:00 PM EDT Office Visit Nephrology [address] [place] [address] Marycarmen Kowalski PA-C [address] [place] [address] 02/20/2024 12:30 PM EST Nurse Only Ancillary [address] [place] [address] [place], Nurse Annual [address] [place] [address] 03/08/2024 2:30 PM EST Office Visit Family Medicine [address] [place] [phone] Jocelyne Desai, [address] [place] [address] Scheduled Orders Name Type Priority Associated Diagnoses Orde r Schedule BASIC METABOLIC PANEL Lab Routine Chronic kidney disease, stage 3b (HCC) Expected: 10/17/2023 (Approximate), Expires: 07/19/2024 MAGNESIUM Lab Routine Chronic kidney disease, stage 3b (HCC) Expected: 10/17/2023 (Approximate), Expires: 07/19/2024 URINALYSIS WITH MICROSCOPIC EXAM Lab Routine Chronic kidney disease, stage 3b (HCC) Expected: 10/17/2023 (Approximate), Expires: 07/19/2024 PROTEIN/ CREATININE RATIO, URINE Lab Routine Chronic kidney disease, stage 3b (HCC) Expected: 10/17/2023 (Approximate), Expires: 07/19/2024 ALBUMIN / CREATININE RATIO, URINE Lab Routine Chronic kidney disease, stage 3b (HCC) Expected: 10/17/2023 (Approximate), Expires: 07/19/2024 CBC WITH WBC DIFFERENTIAL Lab Routine Chronic kidney disease, stage 3b (HCC) Expected: 10/17/2023 (Approximate), Expires: 07/19/2024 IRON SCREEN, INCLUDING TIBC Lab Routine Chronic kidney disease, stage 3b (HCC) Expected: 10/17/2023 (Approximate), Expires: 07/19/2024 PTH Lab Routine Chronic kidney disease, stage 3b (HCC) Expected: 10/17/2023 (Approximate), Expires: 07/19/2024 25-HYDROXY VITAMIN D Lab Routine Chronic kidney disease, stage 3b (HCC) Vitamin D deficiency Expected: 10/17/2023 (Approximate), Expires: 07/19/2024 PHOSPHORUS Lab Routine Chronic kidney disease, stage 3b (HCC) Expected: 10/17/2023 (Approximate), Expires: 07/19/2024 Scheduled Procedures Name Priority Associated Diagnoses Date/Ti [...] Additional history exists CKD HGB USE SMARTSET 24361 07/17/202407/17, 07/07/2023, 07/03/2023, Additional history exists CKD PHOS USE SMARTSET 15739 07/17/2024 06/0 05/2023, 07/03/2023, 11/16/2022, Additional history [...] this encounter Medical Devices Implanted Type Area Sailor Device Identifier Shelf Expiration Date Model / Serial / Lot Shaft Fibula 6cm [id number] - [id number] Implanted:Qty: 1 on 09/05/2008 [place] [facility] [place] - Human N/A: Spine Cervical MUSCULOSKELETAL TRANSPLANT FND 04/20/2010 [id number] / [id number] / Stent Eso Gw 22x70 [id number] - [id number] Implanted:Qty: 1 on 01/21/2008 [place] [facility] [place] N/A: Esophagus ALVEOLUS INC 04/12/2009 42868-086 / / [id number] Depuy Uniplate 32 Implanted:Qty: 1 on 09/05/2008 at [place] [facility] [place] N/A: Spine Cervical TAMMY & TAMMY DEPUY 189--302 / / Depuy Uniplate Screw 14mm Implanted:Qty: 2 on 09/05/2008 at [place] [facility] [place] N/A: Spine Cervical TAMMY & TAMMY DEPUY 1896-07-017 / / Depuy Lordotic Bengal Cage Implanted:Qty: 1 on 05/07/2010 at [place] [facility] [place] N/A: Neck 1773-06-146 / 1773-06-146 / Plate Zach 3 Level Ti 54mm - [id number] Implanted:Qty: 1 on 05/07/2010 at [place] [facility] [place]/A: Neck JNJ : DEPUY SPINE [id number] / / Screw Zach Const St Ti 14mm - [id number] Implanted:Qty: 4 on 05/07/2010 at [place] [facility] [place]/A: Neck JNJ : DEPUY SPINE [id number] 14 / / Screw 3.5x14 Mntr Fa [id number] - [id number] Implanted:Qty: 8 on 05/07/2010 at [place] [facility] [place] N/A: Spine Cervical JNJ : ETHICON CARDIOVATIONS [id number] / / Jarrell [id number] - [id number] Implanted:Qty: 1 on 05/07/2010 at [place] [facility] [place] N/A: Spine Cervical JNJ : ETHICON CARDIOVATIONS [id number] / / Screw Inner Mntr [id number] - [id number] Implanted:Qty: 8 on 05/07/2010 at [place] [facility] [place] N/A: Spine Cervical JNJ : ETHICON CARDIOVATIONS [id number] / / Envista Intraocular Lens Implanted:Qty: 1 on 03/10/2022 by Liang Marshall MD at [place] [facility] Right: Eye BAUSCH & LOMB 08/13/2023 [id number] / [id number] / [id number] Envista Intraocular Lens Implanted:Qty: 1 on 03/24/2022 by Liang Marshall MD at [place] [facility] Left: Eye BAUSCH & LOMB 07/13/2024 [id number] / [id number] / [id number] documented as of this encounter Visit Diagnoses Diagnosis Chronic kidney disease, stage 3b (HCC)- Primary Vitamin D deficiency Unspecified vitamin D deficiency documented in this encounter Advance Directives Documents on File Type Date Recorded 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 No Care Teams Service Sprinkler Helper Relationship Specialty Start Date End Date Jocelyne Desai DO [address] [place] [address] [place] [address] PCP - General Internal Medicine 11/09/16 documented as of this encounter
--- OUTSIDE RECORDS SUMMARY | 2023-08-01 09:29 | External Medical Summary | Summary of Care ---
Author Name Unknown Organization [facility] Address [address] [facility] [place] [address] Phone [phone] Care Team Providers Care Dinner Cook Name Role Phone Silvia Armas DO Primary Care Provider + [phone] Reason for Visit * Reason Onset Date Comments Medication Refill 07/25/2023 Encounter Details Date Type Department Care Team (Late st Contact Info) Description 07/25/2023 Refill Family Medicine [address] [address] Silvia Armas DO [address] [place] [address] [place] [address] Allergies No known active allergiesdocumented as [...] be different from the original. Good connectivity [facility] for wound care [phone] Televideo if needed. 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 He has significant history DM and PVD and recommended he still follow up with podiatry,. 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 1 Status [...] ICD-10 update of inactive term PLATT RESEARCH OTHER*[id number] 02/20/2007 ADVANCE DIRECTIVE INFORMATION 01/19/2005 Overview: Yes, [...] 11/17/19 23 LUMBAGO 12/24/2002 05/09/2007 LOC PRIM [id number] 12/24/200208/13 DEGENERATIVE SKIN DISORD 12/24/2002 VERTEBRAL FX [...] preferred pharmacy and medication before forwarding?yes Pharmacy: [email or web address] Pending Prescriptions: Disp Refills [...] Anticoagulation Centralized Clinical Pharmacy Services, Ilya Lafleur [address] [place] [address] [place] [address] [place] [address] 60 [facility] [place] [address] 08/31/2023 1:00 PM EDT Office Visit Family Medicine [address] [place] [address] Savanna Al PA-C [address] [place] [address] [place] [address] 11/20/2023 2:00 PM EDT Office Visit Nephrology [address] [place] [address] Marycarmen Kowalski PA-C [facility] [place] [address] 02/20/2024 12:30 PM EST Nurse Only Ancillary [address] [place] [address] [place], Nurse Annual [address] [place] [address] 03/08/2024 2:30 PM EST Office Visit Family Medicine [address] [place] [phone] Silvia Armas, [address] [place] [address] Scheduled Procedures Name Priority Associated Diagnoses Date/Ti [...] Additional history exists CKD HGB USE SMARTSET 15415 07/17/202407/17, 07/07/2023, 07/03/2023, Additional history exists CKD PHOS USE SMARTSET 23751 07/17/2024 06/0 05/2023, 07/03/2023, 11/16/2022, Additional history [...] this encounter Medical Devices Implanted Type Area Blower Blast Furnace Device Identifier Shelf Expiration Date Model / Serial / Lot Shaft Fibula 6cm [id number] - [id number] Implanted:Qty: 1 on 09/05/2008 at OR [facility] Tissue - Human N/A: Spine Cervical MUSCULOSKELETAL TRANSPLANT FND 04/20/2010 [id number] / [id number] 0P / Stent Eso Gw 22x70 [id number] - [id number] Implanted:Qty: 1 on 01/21/2008 at OR [facility] N/A: Esophagus ALVEOLUS INC 04/12/2009 52908-616 / / [id number] Depuy Uniplate 32 Implanted:Qty: 1 on 09/05/2008 [...] [facility] [place] N/A: Neck 1773-06-146 / 1773-06-146 / Plate Zach 3 Level Ti 54mm - [id number] Implanted:Qty: 1 on 05/07/2010 at OR [facility] N/A: Neck JNJ : DEPUY SPINE [id number] / / Screw Zach Const St Ti 14mm - [id number] Implanted:Qty: 4 on 05/07/2010 at OR [facility] N/A: Neck JNJ : DEPUY SPINE [id number] 14 / / Screw 3.5x14 Mntr Fa [id number] - [id number] Implanted:Qty: 8 on 05/07/2010 at OR [facility] N/A: Spine Cervical JNJ : ETHICON CARDIOVATIONS [id number] / / Jarrell [id number] - [id number] Implanted:Qty: 1 on 05/07/2010 at OR [facility] N/A: Spine Cervical JNJ : ETHICON CARDIOVATIONS [id number] / / Screw Inner Mntr [id number] - [id number] Implanted:Qty: 8 on 05/07/2010 at OR [facility] N/A: Spine Cervical JNJ : ETHICON CARDIOVATIONS [id number] / / Envista Intraocular Lens Implanted:Qty: 1 on 03/10/2022 by Liang Marshall MD at OR [facility] Right: Eye BAUSCH & LOMB 08/13/2023 [id number] / [id number] / [id number] Envista Intraocular Lens Implanted:Qty: 1 on 03/24/2022 by Liang Marshall MD at OR [facility] Left: Eye BAUSCH & LOMB 07/13/2024 [id number] / [id number] / [id number] documented as of this encounter Advance Directives Documents on File Type Date Recorded 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 No Care Teams Dinner Cook Relationship Specialty Start Date End Date Silvia Armas DO [address] [place] [address] [place] [address] PCP - General Internal Medicine 11/09/16 documented as of this encounter
--- OUTSIDE RECORDS SUMMARY | 2023-08-01 09:29 | External Medical Summary | Summary of Care ---
Author Name Unknown Organization [facility] Address [address] [facility] [place] [address] Phone [phone] Care Team Providers Care Production Finisher Name Role Phone Jocelyne Desai DO Primary Care Provider Reason for Visit * Reason Onset Date Comments Home Health 07/11/2023 Encounter Details Date Type Department Care Team (Late st Contact Info) Description 07/11/2023 Telephone Family Medicine [address] [address] Jocelyne Desai DO [address] [place] [address] [place] [address] Home Health Allergies No known active allergiesdocumented as of this encounter (statuses as of 07/24/2023) Medications Medication Sig Dispensed Refills Start Date [...] or Pain, Severe. 30 Tablet 07/05/2023 Active Ozempic (0.25 or 0.5 MG/DOSE) 2 MG/3ML Solution Pen-injector (Semaglutide(0.2 5 or 0.5MG/DOS)) Inject 0.25 mg under the skin once a week 3 mL 07/05/2023 Active Sennosides-Docus ate Sodium 8.6-50 MG Oral Tablet [...] Tablet by mouth every evening. As per anti-coagulatio n clinic. 30 Tablet 07/05/2023 Active Potassium Chloride Candi ER 20 MEQ Oral Tablet Extended Release Take 1 Tablet by mouth in the morning. 30 Tablet 07/05/2023 4 Discontinued documented as of this encounter (statuses as of 07/24/2023) Active Problems Patient Care Coordination No te Formatting of this note migh t be different from the original. Good connectivity [facility] for wound care [phone] Televideo if needed. 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 He has significant history DM and PVD and recommended he still follow up with podiatry,. Letter in chart from [facility] podiatry they were unable to get [...] ICD-10 update of inactive term PLATT RESEARCH OTHER*[id number] 02/20/2007 ADVANCE DIRECTIVE INFORMATION 01/19/2005 Overview: Yes, Patient instructed to provide copy of advance directive for provider to review and to be scanned into Electronic Medical Record No, Advance Directive brochure given to patient at prior appointment. SPINAL STENOSIS-LUMBAR 09/23/2002 Vitamin D deficiency Cervical spinal stenosis documented as of this encounter (statuses as of 07/24/2023) Resolved Problems Problem Noted Date Diagnosed Date Resolved Date Depression, unspecified 11/09/2021 03/2 Depression, unspecified 11/09/202105/2022 Cellulitis of right leg 07/13/202105/2022 Last Assessment & Plan: Suspect this could be early/localized. Will treat with 7 days antibiotic. If pt cannot be reassess by Dr. Braxton office early next week will need [facility] provider recheck Multiple and open [...] 11/17/19 23 LUMBAGO 12/24/2002 05/09/2007 LOC PRIM [id number] 12/24/200208/13 DEGENERATIVE SKIN DISORD 12/24/2002 VERTEBRAL FX [...] as of this encounter (statuses as of 07/24/2023) Immunizations Name Administration Dates Next Due COVID-19 mRNA, LNP-s, No Pre serve, 2-Dose Series (Moderna) 03/19/2020 COVID-19 mRNA, LNP-s, No Pre serve, 2-Dose Series (eventblimp) 02/16/2021,04/09/2020,03/19/2020 COVID-19, MRNA-LNP, 23-24, P F, 30 MCG/0.3 mL, 12 YRS AND ABOVE, IM ([facility]) 11/16/2022 Covid-19, Mrna, Lnp-s, Pf, B [...] encounter Miscellaneous Notes * Telephone Encounter - Primitivo Heck MD - 07/13/2023 4:09 PM EDT Ok to give both. No changes to orders. * Telephone Encounter - Zahra Morillo LPN - 07/12/2023 2:25 PM EDT HH Concerns Rea RN, Calling from: [facility] Report/Concerns of: Medication Related Symptoms: none Narrative: Start of care completed for patient yesterday. She wanted to make sure to call as when she was entering patients medications into their system a drug interaction between Aspirin and Coumadin popped up, makes the blood thin. Call back KWAME Lucia with advice or orders at [phone] Please fax orders to [facility] [phone]. FYI. * Telephone Encounter - Jocelyne Desai DO - 07/11/2023 4:25 PM EDT Noted. * Telephone Encounter - Mimi Dawson LPN - 07/11/2023 3:16 PM EDT HH Admission/Start of Care Admission/Start of Care: KWAME Lucia, Calling from: [facility] Patient was Admitted to: [facility] , for: Cellulitis to right leg along with blisters/ Sepsis. 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 Right calf wound seems superficial. Is applying xeroform and wrapping with Kerlix to right calf. Right foot wound is getting medical grade honey, Telfa and Kerlix. Pt is seeing Dr. Aquino tomorrow. Pt gets SOB with exertion since being in the hospital but is improving. Next Nursing visit(s) on Possibly Monday07/14/23 They will call with any updates or additional concerns from the upcoming HH visit. Last Office Visit: 11/16/2022 Has patient been scheduled or seen in the office for a follow up visit: Yes- on 07/17/23 Advised that orders will be signed by Jocelyne Desai DO and to fax to the office for signature. Call back KWAME Lucia with advice or orders at [phone] Please fax orders to [facility] [phone]. FYI. documented in this encounter Plan of Treatment Upcoming Encounters Date Type Department Care Team (Late st Contact Info) Description 08/01/2023 5:25 PM EDT Anticoagulation Centralized Clinical Pharmacy Services, Ilya Lafleur [address] [place] [address] [place] [address] [place] [address] 60 [facility] [place] [address] 08/31/2023 1:00 PM EDT Office Visit Family Medicine [address] [place] [phone] Savanna Al PA-C [address] [place] [address] [place] [address] 11/20/2023 2:00 PM EDT Office Visit Nephrology [address] [place] [address] Marycarmen Kowalski PA-C [address] [place] [address] 02/20/2024 12:30 PM EST Nurse Only Ancillary [address] [place] [address] [place], Nurse Annual [address] [place] [address] 03/08/2024 2:30 PM EST Office Visit Family Medicine [address] [place] [address] Jocelyne Desai, [address] [place] [address] Scheduled Procedures Name Priority Associated Diagnoses Date/Ti me COLONOSCOPY FLEXIBLE PROXIMA L DIAGNOSTIC Recall Screening for colon cancer Health Maintenance Due Date Last Done Comments Cologuard 1997 Sigmoidoscopy 1997 Fecal Occult Blood Test 09/02/2009 09/02/2008, 05/04 Diabetic Eye Exam 12/30/2022 12/30/2021, , 12/28/2021, Additional history exists COVID-19 Vaccine ( season) 2023 11/16/2022, 11/16/2021, 02/16/2021, Additional history exists HbA1c 05/18/2023 11/16/2022, 09/08/2022, 05/13/2022, Additional history exists Diabetic Foot Exam 11/17/2023 11/16/2022, 0 05/05/2021, 11/22/2017, Additional history exists GFR 01/17/2024 07/18/2023, 06/14, 07/03/2023, Additional history exists Depression Screening 02/17/2024 02/16/2023 Albumin/Creatinine Ratio 07/17/2024 024, 11/16/2022, 05/13/2022, Additional history exists CKD HGB USE SMARTSET 51354 07/17/202407/17, 07/07/2023, 07/03/2023, Additional history exists CKD PHOS USE SMARTSET 33390 07/17/2024 06/0 05/2023, 07/03/2023, 11/16/2022, Additional history [...] this encounter Medical Devices Implanted Type Area Credit Adjuster Device Identifier Shelf Expiration Date Model / Serial / Lot Shaft Fibula 6cm [id number] - [id number] Implanted:Qty: 1 on 09/05/2008 at OR [facility] Tissue - Human N/A: Spine Cervical MUSCULOSKELETAL TRANSPLANT FND 04/20/2010 [id number] / [id number] 0P / Stent Eso Gw 22x70 [id number] - [id number] Implanted:Qty: 1 on 01/21/2008 at OR [facility] N/A: Esophagus ALVEOLUS INC 04/12/2009 13461-425 / / [id number] Depuy Uniplate 32 Implanted:Qty: 1 on 09/05/2008 at OR [facility] N/A: Spine Cervical TAMMY & TAMMY DEPUY 1897--302 / / Depuy Uniplate Screw 14mm Implanted:Qty: 2 on 09/05/2008 at OR [facility] N/A: Spine Cervical TAMMY & TAMMY DEPUY 189--017 / / Depuy Lordotic Bengal Cage Implanted:Qty: 1 on 05/07/2010 at OR [facility] N/A: Neck 1773--146 / [id number] / Plate Zach 3 Level Ti 54mm - [id number] Implanted:Qty: 1 on 05/07/2010 at OR [facility] N/A: Neck JNJ : DEPUY SPINE [id number] / / Screw Zach Const St Ti 14mm - [id number] Implanted:Qty: 4 on 05/07/2010 at OR [facility] N/A: Neck JNJ : DEPUY SPINE [id number] 14 / / Screw 3.5x14 Mntr Fa [id number] - [id number] Implanted:Qty: 8 on 05/07/2010 at OR [facility] N/A: Spine Cervical JNJ : ETHICON CARDIOVATIONS [id number] / / Jarrell [id number] - [id number] Implanted:Qty: 1 on 05/07/2010 at OR [facility] N/A: Spine Cervical JNJ : ETHICON CARDIOVATIONS [id number] / / Screw Inner Mntr [id number] - [id number] Implanted:Qty: 8 on 05/07/2010 at OR [facility] N/A: Spine Cervical JNJ : ETHICON CARDIOVATIONS [id number] / / Envista Intraocular Lens Implanted:Qty: 1 on 03/10/2022 by Liang Marshall MD at OR [facility] Right: Eye BAUSCH & LOMB 08/13/2023 [id number] / [id number] / [id number] Envista Intraocular Lens Implanted:Qty: 1 on 03/24/2022 by Liang Marshall MD at OR [facility] Left: Eye BAUSCH & LOMB 07/13/2024 [id number] / [id number] / [id number] documented as of this encounter Advance Directives Documents on File Type Date Recorded 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 No Care Teams Production Finisher Relationship Specialty Start Date End Date Jocelyne Desai DO [address] [place] [address] [place] [address] PCP - General Internal Medicine 11/09/16 documented as of this encounter
--- OUTSIDE RECORDS SUMMARY | 2023-08-01 09:29 | External Medical Summary | Summary of Care ---
Author Name Unknown Organization [facility] Address [address] [place] [facility] [place] [address] Phone [phone] Care Team Providers Care Cartography Professor Name Role Phone DesaiElissaJocelyne Brigitte ASHTON Primary Care Provider + [phone] Encounter Details Date Type Department Care Team (Late st Contact Info) Description 07/25/2023 Telephone [facility] [address] [place] [address] Ryanne Ramos PA-C [address] [place] [address] Allergies No known active allergiesdocumented as of [...] mL 07/05/2023 Active Vitamin D3 50 MCG (1999 [place]) Oral Capsule Take 1 Capsule by [...] be different from the original. Good connectivity [facility] for wound care [phone] Televideo if needed. 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 He has significant history DM and PVD and recommended he still follow up with podiatry,. 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 1 Status [...] ICD-10 update of inactive term PLATT RESEARCH OTHER*[id number] 02/20/2007 ADVANCE DIRECTIVE INFORMATION 01/19/2005 Overview: Yes, [...] [facility] office early next week will need [facility] provider recheck Multiple and open [...] 11/17/19 23 LUMBAGO 12/24/2002 05/09/2007 LOC PRIM [id number] 12/24/200208/13 DEGENERATIVE SKIN DISORD 12/24/2002 VERTEBRAL FX [...] MCG/0.3 mL, 12 YRS AND ABOVE, IM ([facility]) 11/16/2022 Covid-19, Mrna, Lnp-s, Pf, B [...] encounter Miscellaneous Notes * Telephone Encounter - Tiffany Alegria CPhT - 07/25/2023 9:10 AM EDT Error documented in this encounter Plan of Treatment Upcoming Encounters Date Type Department Care Team (Late st Contact Info) Description 08/01/2023 5:25 PM EDT Anticoagulation Centralized Clinical Pharmacy Services, Ilya Lafleur [address] [place] [address] [place] [address] [place] [address] 08/31/2023 1:00 PM EDT Office Visit Family Medicine [address] [place] [address] Savanna Al PA-C [address] [place] [address] [place] [address] 11/20/2023 2:00 PM EDT Office Visit Nephrology [address] [place] [address] Marycarmen Kowalski PA-C 200 [facility] [place] [address] 02/20/2024 12:30 PM EST Nurse Only Ancillary [address] [place] [address] [place], Nurse Annual Wellness [address] [place] [address] [place] [address] 03/08/2024 2:30 PM EST Office Visit Family Medicine [address] [place] [phone] Jocelyne Desai, [address] [place] [address] Scheduled Procedures Name Priority Associated Diagnoses Date/Ti [...] Additional history exists CKD HGB USE SMARTSET 27233 07/17/202407/17, 07/07/2023, 07/03/2023, Additional history exists CKD PHOS USE SMARTSET 16200 07/17/2024 06/0 05/2023, 07/03/2023, 11/16/2022, Additional history [...] this encounter Medical Devices Implanted Type Area Sieve Repairer Device Identifier Shelf Expiration Date Model / Serial / Lot Shaft Fibula 6cm [id number] - [id number] Implanted:Qty: 1 on 09/05/2008 at [place] [facility] Tissue - Human N/A: Spine Cervical MUSCULOSKELETAL TRANSPLANT FND 04/20/2010 [id number] / [id number] 0P / Stent Eso Gw 22x70 40231-333 - [id number] Implanted:Qty: 1 on 01/21/2008 at OR [facility] N/A: Esophagus ALVEOLUS INC 04/12/2009 03006-726 / / [id number] Depuy Uniplate 32 Implanted:Qty: 1 on 09/05/2008 at OR [facility] N/A: Spine Cervical TAMMY & TAMMY DEPUY 1897-02-302 / / Depuy Uniplate Screw 14mm Implanted:Qty: 2 on 09/05/2008 at OR [facility] N/A: Spine Cervical TAMMY & TAMMY DEPUY 1896-07-017 / / Depuy Lordotic Bengal Cage Implanted:Qty: 1 on 05/07/2010 at OR [facility] N/A: Neck 1773-06-146 / 1773-06-146 / Plate Zach 3 Level Ti 54mm - [id number] Implanted:Qty: 1 on 05/07/2010 at OR [facility] N/A: Neck JNJ : DEPUY SPINE [id number] 54 / / Screw Zach Const St Ti 14mm - [id number] Implanted:Qty: 4 on 05/07/2010 at OR [facility] N/A: Neck JNJ : DEPUY SPINE [id number] 14 / / Screw 3.5x14 Mntr Fa [id number] - [id number] Implanted:Qty: 8 on 05/07/2010 at OR [facility] N/A: Spine Cervical JNJ : ETHICON CARDIOVATIONS [id number] / / Jarrell [id number] - [id number] Implanted:Qty: 1 on 05/07/2010 at OR [facility] N/A: Spine Cervical JNJ : ETHICON CARDIOVATIONS [id number] / / Screw Inner Mntr [id number] - [id number] Implanted:Qty: 8 on 05/07/2010 at OR [facility] N/A: Spine Cervical JNJ : ETHICON CARDIOVATIONS [id number] / / Envista Intraocular Lens Implanted:Qty: 1 on 03/10/2022 by Liang Marshall MD at OR [facility] Right: Eye BAUSCH & LOMB 08/13/2023 [id number] / [id number] / [id number] Envista Intraocular Lens Implanted:Qty: 1 on 03/24/2022 by Liang Marshall MD at OR [facility] Left: Eye BAUSCH & LOMB 07/13/2024 [id number] / [id number] / [id number] documented as of this encounter Advance Directives Documents on File Type Date Recorded 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 No Care Teams Cartography Professor Relationship Specialty Start Date End Date Jocelyne Desai DO [address] [place] [address] [place] [address] PCP - General Internal Medicine 11/09/16 documented as of this encounter
--- OUTSIDE RECORDS SUMMARY | 2023-08-01 09:30 | External Medical Summary | Summary of Care ---
Author Name Unknown Organization [facility] Address [address] [place] [address] Phone [phone] Care Team Providers Care Hatchery Manager Name Role Phone Jocelyne Desai Primary Care Provider [phone] Reason for Visit * Reason Onset Date Comments Other 07/17/2023 Order Request 07/17/2023 Encounter Details Date Type Department Care Team (Late st Contact Info) Description 07/17/[address] [place] [address] Services, Scheduling [address] [place] [address] Other; Order Request Allergies No known active allergiesdocumented as of this encounter (statuses as of 07/18/2023) Medications Medication Sig Dispensed Refills Start Date [...] once a week 3 mL 07/05/2023 Active Potassium Chloride Candi ER 20 MEQ Oral Tablet Extended Release Take 1 Tablet by mouth in the morning. 30 Tablet 07/05/2023 Active Sennosides-Docusat e Sodium 8.6-50 MG [...] per anti-coagulation clinic. 30 Tablet 07/05/2023 Active documented as of this encounter (statuses as of 07/18/2023) Active Problems Patient Care Coordination No te Formatting of this note migh t be different from the original. Good connectivity [facility] for wound care [phone] Televideo if needed. 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 He has significant history DM and PVD and recommended he still follow up with podiatry,. Letter in chart from [facility] podiatry they were unable to get [...] 11/27/2018 H/O gastric bypass 11/27/2018 Overview: RYGB alf current use of 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 1 Status [...] ICD-10 update of inactive term PLATT RESEARCH OTHER*[id number] 02/20/2007 ADVANCE DIRECTIVE INFORMATION 01/19/2005 Overview: Yes, Patient instructed to provide copy of advance directive for provider to review and to be scanned into Electronic Medical Record No, Advance Directive brochure given to patient at prior appointment. SPINAL STENOSIS-LUMBAR 09/23/2002 Vitamin D deficiency Cervical spinal stenosis documented as of this encounter (statuses as of 07/18/2023) Resolved Problems Problem Noted Date Diagnosed Date Resolved Date Depression, unspecified 11/09/2021 03/2 Depression, unspecified 11/09/202105/2022 Cellulitis of right leg 07/13/202105/2022 Last Assessment & Plan: Suspect this could be early/localized. Will treat with 7 days antibiotic. If pt cannot be reassess by Dr. Braxton office early next week will need [facility] provider recheck Multiple and open [...] 11/17/19 23 LUMBAGO 12/24/2002 05/09/2007 LOC PRIM [id number] 12/24/200208/13 DEGENERATIVE SKIN DISORD 12/24/2002 VERTEBRAL FX [...] as of this encounter (statuses as of 07/18/2023) Immunizations Name Administration Dates Next Due COVID-19 mRNA, LNP-s, No Pre serve, 2-Dose Series (Moderna) 03/19/2020 COVID-19 mRNA, LNP-s, No Pre serve, 2-Dose Series ([employer]) 02/16/2021,04/09/2020,03/19/2020 COVID-19, MRNA-LNP, 23-24, P F, 30 MCG/0.3 mL, 12 YRS AND ABOVE, IM ([facility]) 11/16/2022 Covid-19, Mrna, Lnp-s, Pf, B ivalent, [...] as of this encounter Miscellaneous Notes * Addendum Note - Libby Parekh RN - 07/18/2023 12:15 PM EDTAddended by: LIBBY PAREKH on: 07/18/2023 12:15 PM Modules accepted: Orders * Telephone Encounter - Libby Parekh RN - 07/18/2023 12:14 PM EDT Pt scheduled to be seen in clinic tomorrow. Will complete lab tests today. Orders placed. * Telephone Encounter - Jennifer Agustin MD - 07/18/2023 12:00 PM EDT Recovering stage III acute kidney injury on chronic kidney disease We are working at getting him a hospital discharge appointment sometime in the upcoming weeks but he should keep October appointment as well Please have him get basic metabolic panel, serum albumin, urinalysis and microscopy, albumin to creatinine ratio, magnesium, CBC, PTH, 25 hydroxy vitamin-D, phos * Telephone Encounter - Marisela Peraza LPN - 07/17/2023 1:18 PM EDT Looks like labs faxed when pt was in [facility] were completed 07/07/23 LMM will check with MD If additional labs are needed See message above would you be recommending additional labs next f/u is 11/20/23 in [facility] with Marycarmen * Telephone Encounter - Alyx Marroquin OSA - 07/17/2023 12:28 PM EDT Good afternoon, Pt on the line stating he was discharged from [facility] and he wanted to know if he needed any labs drawn. Pt has an appt with PCP today and labs after. Pt would like to have all labs done today if Dr. Agustin/Marycarmen want him to have extra labs done. Thank you! documented in this encounter Plan of Treatment Upcoming Encounters Date Type Department Care Team (Late st Contact Info) Description 07/19/2023 1:40 PM EDT Office Visit Nephrology [address] [place] [address] Jennifer Agustin MD [address] [facility] [place] [address] 08/31/2023 1:00 PM EDT Office Visit Family Medicine [address] [place] [phone] Savanna Al PA-C [address] [place] [address] [place] [address] 11/20/2023 2:00 PM EDT Office Visit Nephrology [address] [place] [address] Marycarmen Kowalski PA-C [address] [place] [address] 02/20/2024 12:30 PM EST Nurse Only Ancillary [address] [place] [address] [place], Nurse [address] [place] [address] 03/08/2024 2:30 PM EST Office Visit Family Medicine [address] [place] [phone] [place] [address] Scheduled Orders Name Type Priority Associated Diagnoses Orde r Schedule BASIC METABOLIC PANEL Lab Routine Stage 3b chronic kidney disease (HCC) Expected: 07/18/2023, Expires: 07/17/2024 ALBUMIN Lab Routine Stage 3b chronic kidney disease (HCC) Expected: 07/18/2023, Expires: 07/17/2024 URINALYSIS WITH MICROSCOPIC EXAM Lab Routine Stage 3b chronic kidney disease (HCC) Expected: 07/18/2023, Expires: 07/17/2024 ALBUMIN / CREATININE RATIO, URINE Lab Routine Stage 3b chronic kidney disease (HCC) Expected: 07/18/2023, Expires: 07/17/2024 MAGNESIUM Lab Routine Stage 3b chronic kidney disease (HCC) Expected: 07/18/2023, Expires: 07/17/2024 CBC Lab Routine Stage 3b chronic kidney disease (HCC) Expected: 07/18/2023, Expires: 07/17/2024 PTH Lab Routine Stage 3b chronic kidney disease (HCC) Expected: 07/18/2023, Expires: 07/17/2024 25-HYDROXY VITAMIN D Lab Routine Stage 3b chronic kidney disease (HCC) Vitamin D deficiency Expected: 07/18/2023, Expires: 07/17/2024 PHOSPHORUS Lab Routine Stage 3b chronic kidney disease (HCC) Expected: 07/18/2023, Expires: 07/17/2024 Scheduled Procedures Name Priority Associated Diagnoses Date/Ti [...] 05/18/2023 11/16/2022, 10/15, 05/13/2022, Additional history exists Albumin/Creatinine Ratio 11/17/2023 023, 05/13/2022, 09/29/2021, Additional history exists Diabetic Foot Exam 11/17/2023 11/16/2022, 0 05/05/2021, 11/22/2017, Additional history exists GFR 01/07/2024 07/07/2023, 06/14, 06/28/2023, Additional history exists Depression Screening 02/17/2024 02/16/2023 CKD PHOS USE SMARTSET 22757 07/02/202406/14, 11/16/2022, 09/29/2021, Additional history exists CKD HGB USE SMARTSET 34761 07/06/202407/06, 07/03/2023, 07/03/2023, Additional history exists DTaP,Tdap,and Td Vaccines (3 [...] encounter Medical Devices Implanted Type Area Senior Project Controls Specialist Device Identifier Shelf Expiration Date Model / Serial / Lot Shaft Fibula 6cm [id number] - [id number] Implanted:Qty: 1 on 09/05/2008 at [place] [facility] Tissue - Human N/A: Spine Cervical MUSCULOSKELETAL TRANSPLANT FND 04/20/2010 [id number] / [id number] 0P / Stent Eso Gw 22x70 [id number] - [id number] Implanted:Qty: 1 on 01/21/2008 at OR [facility] N/A: Esophagus ALVEOLUS INC 04/12/2009 [id number] / / [id number] Depuy Uniplate 32 Implanted:Qty: 1 on 09/05/2008 at OR [facility] N/A: Spine Cervical TAMMY & TAMMY DEPUY 302 / / Depuy Uniplate Screw 14mm Implanted:Qty: 2 on 09/05/2008 at OR [facility] N/A: Spine Cervical TAMMY & TAMMY DEPUY 017 / / Depuy Lordotic Bengal Cage Implanted:Qty: 1 on 05/07/2010 at OR [facility] N/A: Neck 1773-06-146 / 1773-146 / Plate Zach 3 Level Ti 54mm - [id number] Implanted:Qty: 1 on 05/07/2010 at OR [facility] N/A: Neck JNJ : DEPUY SPINE [id number] / / Screw Zach Const St Ti 14mm - [id number] Implanted:Qty: 4 on 05/07/2010 at OR [facility] N/A: Neck JNJ : DEPUY SPINE [id number] 14 / / Screw 3.5x14 Mntr Fa [id number] - [id number] Implanted:Qty: 8 on 05/07/2010 at OR [facility] N/A: Spine Cervical JNJ : ETHICON CARDIOVATIONS [id number] / / Jarrell [id number] - [id number] Implanted:Qty: 1 on 05/07/2010 at OR [facility] N/A: Spine Cervical JNJ : ETHICON CARDIOVATIONS [id number] / / Screw Inner Mntr [id number] - [id number] Implanted:Qty: 8 on 05/07/2010 at OR [facility] N/A: Spine Cervical JNJ : ETHICON CARDIOVATIONS [id number] / / Envista Intraocular Lens Implanted:Qty: 1 on 03/10/2022 by Liang Marshall MD at OR [facility] Right: Eye BAUSCH & LOMB 08/13/2023 [id number] / [id number] / [id number] Envista Intraocular Lens Implanted:Qty: 1 on 03/24/2022 by Liang Marshall MD at OR [facility] Left: Eye BAUSCH & LOMB 07/13/2024 [id number] / [id number] / [id number] documented as of this encounter Visit Diagnoses Diagnosis Stage 3b chronic kidney disease (HCC)- Primary Vitamin D deficiency Unspecified vitamin D deficiency documented in this encounter Advance Directives Documents on File Type Date Recorded 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 No Care Teams Hatchery Manager Relationship Specialty Start Date End Date Jocelyne Dseai DO [address] [place] [address] [place] [address] PCP - General Internal Medicine 11/09/16 documented as of this encounter
--- OUTSIDE RECORDS SUMMARY | 2023-08-01 09:30 | External Medical Summary | Summary of Care ---
Author Name Unknown Organization [facility] Address [address] [facility] [place] [address] Phone [phone] Care Team Providers Care Accounting Policy Consultant Name Role Phone Desai Jocelyne Briggs Primary Care Provider + [phone] Reason for Visit * Reason Comments Outpatient Testing Encounter Details Date Type Department Care Team (Late st Contact Info) Description 07/18/2023 1:40 PM EDT Laboratory Laboratory [address] [place] [phone] [address] [place] [address] Stage 3b chronic kidney disease (HCC); Vitamin D deficiency Allergies No known active allergiesdocumented as of [...] be different from the original. Good connectivity [facility] for wound care [phone] Televideo if needed. Problem Noted Date Diagnosed Date MRSA (methicillin resistant Staphylococcus aureu s) 06/30/2023 Orthostatic hypotension 06/30/2023 Pressure injury of buttock, stage 2 06/30/2023 Full code status 06/28/2023 Calculus of gallbladder with out cholecystitis without obstruction 06/28/2023 Stasis ulcer 06/28/2023 History of WI (myocardial infarction) 11/09/2021 Trigger [...] 11/27/2018 H/O gastric bypass 11/27/2018 Overview: RYGB emt intermediate current use of 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 1 Status [...] ICD-10 update of inactive term PLATT RESEARCH OTHER*[id number] 02/20/2007 ADVANCE DIRECTIVE INFORMATION 01/19/2005 Overview: Yes, [...] [facility] office early next week will need [facility] provider recheck Multiple and open [...] below 160 06/12/2006 10/13/2006 Mixed dyslipidemia 12/24/2005 12/ 9 Overview: Per Lipid Taxonomy. DIAB RENAL [...] 11/17/19 23 LUMBAGO 12/24/2002 05/09/2007 LOC PRIM [id number] 12/24/200208/13 DEGENERATIVE SKIN DISORD 12/24/2002 VERTEBRAL FX [...] mRNA, LNP-s, No Pre serve, 2-Dose Series ([employer]) 02/16/2021,04/09/2020,03/19/2020 COVID-19, MRNA-LNP, 23-24, P F, 30 MCG/0.3 mL, 12 YRS AND ABOVE, IM ([employer]) 11/16/2022 Covid-19, Mrna, Lnp-s, Pf, B ivalent, [...] 07/19/2023 1:40 PM EDT Office Visit Nephrology [address] [place] [address] Jennifer Agustin MD [address] [facility] [place] [address] [place] [address] 08/31/2023 1:00 PM EDT Office Visit Family Medicine [address] [place] [phone] Savanna Al PA-C [address] [place] [address] [place] [address] 11/20/2023 2:00 PM EDT Office Visit Nephrology [address] [place] [address] Marycarmen Kowalski PA-C [address] [place] [address] 02/20/2024 12:30 PM EST Nurse Only Ancillary [address] [place] [address] [place], Nurse Annual [facility] [address] [place] [address] [place] [address] 03/08/2024 2:30 PM EST Office Visit Family Medicine [address] [place] [phone] Jocelyne Desai[address] [place] [address] Pending Results Name Type Priority Associated Diagnoses Date /Time BASIC METABOLIC PANEL Lab Routine Stage 3b chronic kidney disease (HCC) 07/18/2023 1:34 PM EDT ALBUMIN Lab Routine Stage 3b chronic kidney disease (HCC) 07/18/2023 1:34 PM EDT URINALYSIS WITH MICROSCOPIC EXAM Lab Routine Stage 3b chronic kidney disease (HCC) 07/18/2023 1:34 PM EDT ALBUMIN / CREATININE RATIO, URINE Lab Routine Stage 3b chronic kidney disease (HCC) 07/18/2023 1:34 PM EDT MAGNESIUM Lab Routine Stage 3b chronic kidney disease (HCC) 07/18/2023 1:34 PM EDT CBC Lab Routine Stage 3b chronic kidney disease (HCC) 07/18/2023 1:34 PM EDT PTH Lab Routine Stage 3b chronic kidney disease (HCC) 07/18/2023 1:34 PM EDT 25-HYDROXY VITAMIN D Lab Routine Stage 3b chronic kidney disease (HCC) Vitamin D deficiency 07/18/2023 1:34 PM EDT PHOSPHORUS Lab Routine Stage 3b chronic kidney disease (HCC) 07/18/2023 1:34 PM EDT Scheduled Procedures Name Priority Associated Diagnoses Date/Ti [...] Screening 02/17/2024 02/16/2023 CKD PHOS USE SMARTSET 39026 07/02/202406/14, 11/16/2022, 09/29/2021, Additional history exists CKD HGB USE SMARTSET 02144 07/06/202407/06, 07/03/2023, 07/03/2023, Additional history exists DTaP,Tdap,and [...] this encounter Medical Devices Implanted Type Area Sugar Drier Device Identifier Shelf Expiration Date Model / Serial / Lot Shaft Fibula 6cm [id number] - [id number] [place]planted:Qty: 1 on 09/05/[place] [facility] [place] - Human N/A: Spine Cervical MUSCULOSKELETAL TRANSPLANT FND 04/20/2010 088263 / [id number] 0P / Stent Eso Gw 22x70 [id number] - [id number] Implanted:Qty: 1 on 01/21/2008 [place] [facility] [place]/A: Esophagus ALVEOLUS INC 04/12/2009 39840-257 / / [id number] Depuy Uniplate 32 Implanted:Qty: 1 on 09/05/2008 [place] [facility] [place]/A: Spine Cervical TAMMY & TAMMY DEPUY 1897-302 / / Depuy Uniplate Screw 14mm Implanted:Qty: 2 on 09/05/2008 [place] [facility] [place] [place] [facility] [place]A: Spine Cervical TAMMY & TAMMY DEPUY 189--017 / / Depuy Lordotic Bengal Cage Implanted:Qty: 1 on 05/07/2010 [place] [facility] [place] [place] [facility] [place]/A: Neck 1773--146 / [id number] / Plate Zach 3 Level Ti 54mm - [id number] Implanted:Qty: 1 on 05/07/2010 [place] [facility] [place] [place] [facility] [place]/A: Neck JNJ : DEPUY SPINE [id number] 54 / / Screw Zach Const St Ti 14mm - [id number] Implanted:Qty: 4 on 05/07/2010 [place] [facility] [place] [place] [facility] [place]A: Neck JNJ : DEPUY SPINE [id number] 14 / / Screw 3.5x14 Mntr Fa [id number] - [id number] Implanted:Qty: 8 on 05/07/2010 [place] [facility] [place]/A: Spine Cervical JNJ : ETHICON CARDIOVATIONS [id number] / / Jarrell [id number] - [id number] Implanted:Qty: 1 on 05/07/2010 [place] [facility] [place] [place] [facility] [place]A: Spine Cervical JNJ : ETHICON CARDIOVATIONS [id number] / / Screw Inner Mntr [id number] - [id number] Implanted:Qty: 8 on 05/07/2010 [place] [facility] [place]A: Spine Cervical JNJ : ETHICON CARDIOVATIONS [id number] / / Envista Intraocular Lens Implanted:Qty: 1 on 03/10/2022 by Liang Marshall MD at [place] [facility] Right: Eye BAUSCH & LOMB 08/13/2023 [id number] / [id number] / [id number] Envista Intraocular Lens Implanted:Qty: 1 on 03/24/2022 by Liang Marshall MD at OR [facility] Left: Eye BAUSCH & LOMB 07/13/2024 [id number] / [id number] / [id number] documented as of this encounter Visit Diagnoses Diagnosis Stage 3b chronic kidney disease (HCC) Vitamin D deficiency Unspecified vitamin D deficiency documented in this encounter Advance Directives Documents on File Type Date Recorded 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 No Care Teams Accounting Policy Consultant Relationship Specialty Start Date End Date Jocelyne Desai DO [address] [place] [address] [place] [address] PCP - General Internal Medicine 11/09/16 documented as of this encounter
--- OUTSIDE RECORDS SUMMARY | 2023-08-01 09:30 | External Medical Summary | Summary of Care ---
Author Name Unknown Organization [facility] Address [address] [place] [address] Phone [phone] Care Team Providers Care Bulb Brander Name Role Phone Jocelyne Desai Primary Care Provider [phone] Reason for Visit * Reason Onset Date Comments Other 07/17/2023 Order Request 07/17/2023 Encounter Details Date Type Department Care Team (Late st Contact Info) Description 07/17/2023 Telephone Nephrology [address] [place] [address] Services, Scheduling [address] [place] [address] Other; Order Request Allergies No known active [...] the original. Good connectivity [facility] for wound care [phone] Televideo if needed. 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 He has significant history DM and PVD and recommended he still follow up with podiatry,. Letter in chart from [facility] podiatry they were unable to [...] ICD-10 update of inactive term PLATT RESEARCH OTHER*[id number] 02/20/2007 ADVANCE DIRECTIVE INFORMATION 01/19/2005 Overview: Yes, [...] [facility] office early next week will need [facility] provider recheck Multiple and open [...] 11/17/19 23 LUMBAGO 12/24/2002 05/09/2007 LOC PRIM [id number]-A-[id number] 12/24/200208/13 DEGENERATIVE SKIN DISORD 12/24/2002 VERTEBRAL FX [...] mRNA, LNP-s, No Pre serve, 2-Dose Series ([employer]) 02/16/2021,04/09/2020,03/19/2020 COVID-19, MRNA-LNP, 23-24, P F, 30 MCG/0.3 mL, 12 YRS AND ABOVE, IM ([facility]) 11/16/2022 Covid-19, Mrna, Lnp-s, Pf, B ivalent, [...] encounter Miscellaneous Notes * Telephone Encounter - Jennifer Agustin MD [...] like labs faxed when pt was in [facility] were completed 07/07/23 LMM will check with MD If additional labs are needed See message above would you be recommending additional labs next f/u is 11/20/23 in [facility] with Marycarmen * Telephone Encounter - Alyx Marroquin OSA - 07/17/2023 12:28 PM EDT Good afternoon, Pt on the line stating he was discharged from [facility] and he wanted to know if [...] 07/19/2023 1:40 PM EDT Office Visit Nephrology [address] [place] [address] Jennifer Agustin MD [address] [place] [address] 08/31/2023 1:00 PM EDT Office Visit Family Medicine [address] [place] [phone] [place] Al PA-C [address] [place] [address] [place] [address] 11/20/2023 2:00 PM EDT Office Visit Nephrology [address] [place] [address] Marycarmen Kowalski PA-C [address] [place] [address] 02/20/2024 12:30 PM EST Nurse Only Ancillary [address] [place] [address] [place], Nurse Annual [facility]ness [address] [place] [address] [place] [address] 03/08/2024 2:30 PM EST Office Visit Family Medicine [address] [place] [phone] Jocelyne Desai, [address] [place] [address] Scheduled Procedures Name Priority Associated Diagnoses Date/Ti [...] Screening 02/17/2024 02/16/2023 CKD PHOS USE SMARTSET 60279 07/02/202406/14, 11/16/2022, 09/29/2021, Additional history exists CKD HGB USE SMARTSET 41420 07/06/202407/06, 07/03/2023, 07/03/2023, Additional history exists DTaP,Tdap,and [...] this encounter Medical Devices Implanted Type Area Print Journalist Device Identifier Shelf Expiration Date Model / Serial / Lot Shaft Fibula 6cm [id number] - [id number] Implanted:Qty: 1 on 09/05/2008 [place] [facility] [place] - Human N/A: Spine Cervical MUSCULOSKELETAL TRANSPLANT FND 04/20/2010 [id number] / [id number] 0P / Stent Eso Gw 22x70 82948-830 - [id number] Implanted:Qty: 1 on 01/21/2008 [place] [facility] [place] N/A: Esophagus AL[employer]OLUS INC 04/12/2009 58841-824 / / [id number] Depuy Uniplate 32 Implanted:Qty: 1 on 09/05/2008 at [place] [facility] [place] N/A: Spine Cervical TAMMY & TAMMY DEPUY 1897--302 / / Depuy Uniplate Screw 14mm Implanted:Qty: 2 on 09/05/2008 at [place] [facility] [place] N/A: Spine Cervical TAMMY & TAMMY DEPUY 1896-07-017 / / Depuy Lordotic Bengal Cage Implanted:Qty: 1 on 05/07/2010 at [place] [facility] N/A: Neck 1773-06-146 / 1773-06-146 / Plate Zach 3 Level Ti 54mm - [id number] Implanted:Qty: 1 on 05/07/2010 [place] [facility] [place] N/A: Neck JNJ : DEPUY SPINE [id number] 54 / / Screw Zach Const St Ti 14mm - [id number] Implanted:Qty: 4 on 05/07/2010 at [place] [facility] [place] N/A: Neck JNJ : DEPUY SPINE [id number] 14 / / Screw 3.5x14 Mntr Fa [id number] - [id number] Implanted:Qty: 8 on 05/07/2010 at [place] [facility] [place] N/A: Spine Cervical JNJ : ETHICON CARDIOVATIONS [id number] / / Jarrell [id number] - [id number] Implanted:Qty: 1 on 05/07/2010 at [place] [facility] [place] N/A: Spine Cervical JNJ : ETHICON CARDIOVATIONS [id number] / / Screw Inner Mntr [id number] - [id number] Implanted:Qty: 8 on 05/07/2010 at [place] [facility] [place] N/A: Spine Cervical JNJ : ETHICON CARDIOVATIONS [id number] / / Envista Intraocular Lens Implanted:Qty: 1 on 03/10/2022 by Liang Marshall MD at OR [facility] Right: Eye BAUSCH & LOMB 08/13/2023 [id number] / [id number] / [id number] Envista Intraocular Lens Implanted:Qty: 1 on 03/24/2022 by Liang Marshall MD at OR [facility] Left: Eye BAUSCH & LOMB 07/13/2024 [id number] / [id number] / [id number] documented as of this encounter Advance Directives Documents on File Type Date Recorded 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 No Care Teams Bulb Brander Relationship Specialty Start Date End Date Jocelyne Desai DO [address] [place] [address] [place] [phone] PCP - General Internal Medicine 11/09/16 documented as of this encounter
--- OUTSIDE RECORDS SUMMARY | 2023-08-01 09:30 | External Medical Summary | Summary of Care ---
Author Name Unknown Organization [facility] Address [address] [facility] [address] Phone [phone] Care Team Providers Care Sheet Metal Apprentice Name Role Phone Silvia Armas Primary Care Provider + [phone] Reason for Visit * Reason Comments Hospital Follow-Up Encounter Details Date Type Department Care Team (Late st Contact Info) Description 07/19/2023 1:40 PM EDT Office Visit Nephrology [address] [place] [address] Ladonna Fatima MD [facility] [place] [address] JORGE (acute kidney injury) (HCC)*; Stage 3b chronic kidney disease (HCC); Persistent proteinuria; Hypotension, unspecified hypotension type; Other hypervolemia; 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 chronic kidney disease (HCC); Hyperparathyroidism, secondary renal (HCC) Allergies No known active allergiesdocumented as of this encounter (statuses as of 07/19/2023) Medications Medication Sig Dispensed Refills Start Date [...] Active Vitamin B-12 1000 MCG Oral Tablet (Cyanocobalamin ) Take 1 Tablet by mouth every evening. [...] or 0.5 MG/DOSE) 2 MG/3ML Solution Pen-injector (Semaglutide(0. 25 or 0.5MG/DOS)) Inject 0.25 mg under the skin once a week 3 mL 07/05/2023 Active Sennosides-Docu sate Sodium 8.6-50 MG Oral Tablet (Senna S) [...] Tablet before bedtime. 60 Tablet 07/19/2023 Active Potassium Chloride Candi ER 20 MEQ Oral Tablet Extended Release Take 1 Tablet by mouth in the morning. 30 Tablet 07/05/2023 4 Discontinued documented as of this encounter (statuses as of 07/19/2023) Active Problems Patient Care Coordination No te Formatting of this note migh t be different from the original. Good connectivity [facility] for wound care [phone] Televideo if needed. 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 He has significant history DM and PVD and recommended he still follow up with podiatry,. Letter in chart from [facility] podiatry they were unable to get [...] ICD-10 update of inactive term PLATT RESEARCH OTHER*[id number] 02/20/2007 ADVANCE DIRECTIVE INFORMATION 01/19/2005 Overview: Yes, Patient instructed to provide copy of advance directive for provider to review and to be scanned into Electronic Medical Record No, Advance Directive brochure given to patient at prior appointment. SPINAL STENOSIS-LUMBAR 09/23/2002 Vitamin D deficiency Cervical spinal stenosis documented as of this encounter (statuses as of 07/19/2023) Resolved Problems Problem Noted Date Diagnosed Date Resolved Date Depression, unspecified 11/09/2021 03/2 Depression, unspecified 11/09/202105/2022 Cellulitis of right leg 07/13/202105/2022 Last Assessment & Plan: Suspect this could be early/localized. Will treat with 7 days antibiotic. If pt cannot be reassess by Dr. Braxton office early next week will need [facility] provider recheck Multiple and open wound [...] 12/30/200810/05 DM TYPE 2 CAUSING RENAL DZ 12/11/200803/14/2014 Overview: Per Diabetes Taxonomy. Cervical spondylosis with [...] below 160 06/12/2006 10/13/2006 Mixed dyslipidemia 12/24/2005 Overview: Per Lipid Taxonomy. DIAB RENAL MANIF [...] 11/17/19 23 LUMBAGO 12/24/2002 05/09/2007 LOC PRIM [id number] 12/24/200208/13 DEGENERATIVE SKIN DISORD 12/24/2002 VERTEBRAL FX [...] as of this encounter (statuses as of 07/19/2023) Immunizations Name Administration Dates Next Due COVID-19 mRNA, LNP-s, No Pre serve, 2-Dose Series (Moderna) 03/19/2020 COVID-19 mRNA, LNP-s, No Pre serve, 2-Dose Series (Pfizer) 02/16/2021,04/09/2020,03/19/2020 COVID-19, MRNA-LNP, 23-24, P F, 30 MCG/0.3 mL, 12 YRS AND ABOVE, IM (Simple-Fill-ComirnatCognea) 11/16/2022 Covid-19, Mrna, Lnp-s, Pf, B ivalent, [...] Sign Reading Time Taken Comments Blood Pressure 97/60 07/19/2023 1:46 PM EDT Pulse 64 07/19/2023 1:46 PM EDT Temperature 36.7 C (98 F) 07/19/2023 1:44 PM EDT Respiratory Rate 22 07/19/2023 1:44 PM EDT Oxygen Saturation 97% 07/19/2023 1:44 PM EDT Inhaled Oxygen Concentration - - Weight 91.4 kg (201 lb 9.6 oz) 07/19/2023 1:44 P M EDT Height - - Body Mass Index 28.12 02/23/2023 1:42 PM EST documented in this encounter Patient Instructions * Patient Instructions* Ladonna Fatima MD - 07/19/2023 2:24 PM EDT -increase potassium to 20 mEq twice daily from daily -no change to other meds -take it easy the rest of the day > if your breathing is worse or still short or if your energy is still too low, contact [place] or Dr Armas -keep elevating your legs -check labs before August 30 visit w/ ANGELINA and before November visit w/ Marycarmen -avoid medicines like aleve, advil, ibuprofen, aspirin more than 81 mg daily and other NSAIDS whichare not good for kidney patients. Take only tylenol (acetaminophen) up to 2000 mg daily as needed for pain or as directed by your primary care provider. -let me know if you need script for midodrine or other meds to [facility] -will let you know about vitron C or not documented in this encounter Progress Notes * Ladonna Fatima MD - 07/19/2023 1:58 PM EDT NEPHROLOGY CLINIC NOTE Nephrology [address] [place] [address] 07/19/2023, 1:58 PM Patient Name: Lg Cooley BACKGROUND: 73 year old male presents for hospital discharge visit today for stage III nonoliguric acute on chronic kidney injury CKD 3B from ischemic ATN; admitted to [facility] June 13.. PMH includes ischemic left MCA stroke 01/2018 managed at [facility] and for long time after amb w/ cane; DM since 1999 approx with triopathy, HTN dx'd after this; CAD s/p stent, PAD, MINERVA on BiPAP, post stroke urinary retention follows w/ urology; also with chronic atrial fibrillation on AC, tachy-geronimo syndrome status post pacemaker placement, peripheral vascular disease, morbid obesity status post Rouxen Y in 2007 [facility], esophageal strictures, cervical and lumbar spine degenerative disc disease w/ lumb pain after remote fall and s/p excision to c spine discs. Also with severe urethral strictures requiring periodic urology care. After Anders en Y, came off of insulin. His creatinine runs about 1.4-1.7 in 2018 and in 2018. He has 1 g proteinuria since at least 2008 and probably earlier. Serologic workup in October 2018 was negative. March 15, 2018 catheterized urine specimen remarkable for Enterococcus. Maternal aunt was on dialysis for ? Reason. No other FH of renal disease. No stone hx. Admitted [facility] 05/05-05/15/19 w/ LLE cellulitis after a fall. Cellulitis treated with daptomycin and Zosyn, later Augmentin. Noted on vascular studies to have venous insufficiency and possible 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 stenosis for outpatient follow- up. Followed initially with wound clinic but now L foot sore healed. Admission creatinine 2.1, discharge creatinine 1.5. He was discharged [facility]. Active in his grandkids' lives. Helps get hsi brother to/from [employer]. Active in his high school class. TODAY 02/23/2023: Got pacemaker change in January. Admitted [facility] September for acute HFrEF and RLE cellulitis. Jardiance stopped at d/c d/t LE cellulitis; losartan also held. On ozempic now. Has prn lasix and using more often past month (at last OV in June had used once in past several weeks). Weighs self daily >> 234 #; slowly upcreeping. Seen at [facility] sleep clinic earlier today. Still w/ R foot wound slowly getting better; still going weekly to wound clinic. TODAY 07/19/2023: patient with extended admission to [facility]. Admitted last monthbecause of severe right lower extremity swelling in the setting of persistent lower extremity cellulitis with toe amputations. Developed acute on chronic kidney injury with peak creatinine 5.1 on , up from 3.2 on June 13 presentation. First creat on 06/27 is 3 after hospital d/c. Was d/c to [facility] for rehab, home about 10 days now. Takes minimal tylenol > 2-3 X since hosp d/c. Has R medial indurated area about 12 x 6 w/ small wound >> wound clinic doc looked at it/ following; venous duplex negative; did MRI and report pending. [facility]; today he had to stop 3 X getting to front door and asked to be brought in in w/c. Today is unusual for him. Today is first day since d/c that it's very humid; wondering if this has a role. Does not think he's been overdoing it. Didrest after travelling yesterday; keeps legs up. Weighs himself daily on chester tooth scale to case mgyt >> describes wts as stable Off of vitron c currently per hosp d/c instructions REVIEW OF SYSTEMS: No F/C, unintended wt loss 40 + pounds, energy level lower than he'd like but and appetite acceptable No palpitations, angina, orthopnea; recently more LE edema No cough, wheeze, or dyspnea No N/V/D/C/abd pain No dysuria, hematuria, nocturia >2X; no new/worrisome voiding sx No focal joint/muscle aches No presyncopal or orthostatic symptoms; no falls Current Outpatient Medications Medication Sig Dispense Refill ACETAMINOPHEN 500 MG PO TABS 2 tabs every 6 hours as needed for discomfort Acetaminophen 325 MG Oral Tablet (Tylenol) Take 2 Tablets by mouth every 4 hours as needed for Fever >38C(100.5F) or Pain, Mild. Aspirin 81 MG Oral Tablet Delayed Release Take 1 Tablet by mouth every evening. 30 Tablet 0 Atorvastatin Calcium 40 MG Oral Tablet (Lipitor) Take 1 Tablet by mouth daily. 100 Tablet 2 Boost Oral Liquid Take 237 mL by mouth in the morning and 237 mL at noon and 237 mL in the evening.Take before meals. 237 mL 0 Vitamin D3 50 MCG (2000 UT) Oral Capsule Take 1 Capsule by mouth every evening. 30 Capsule 0 Vitamin B-12 1000 MCG Oral Tablet (Cyanocobalamin) Take 1 Tablet by mouth every evening. 30 Tablet 0 Cyclobenzaprine HCl 10 MG Oral Tablet (Flexeril) Take 1 Tablet by mouth every 8 hours as needed forMuscle spasms. 30 Tablet 0 Flintstones w/Iron 18 MG Oral Tablet Chewable Take 1 Tablet by mouth every evening. 30 Tablet 0 Magnesium Oxide 400 MG Oral Capsule Take 1 Capsule by mouth in the morning. 30 Capsule 0 Metoprolol Succinate ER 25 MG Oral Tablet Extended Release 24 Hour (toPROL XL) Take 1 Tablet by mouth in the morning. 100 Tablet 3 Midodrine HCl 2.5 MG Oral Tablet (Proamatine) Take 1 Tablet by mouth in the morning and 1 Tablet atnoon and 1 Tablet in the evening. 90 Tablet 0 Ozempic (0.25 or 0.5 MG/DOSE) 2 MG/3ML Solution Pen-injector (Semaglutide(0.25 or 0.5MG/DOS)) Inject 0.25 mg under the skin once a week 3 mL 0 Sennosides-Docusate Sodium 8.6-50 MG Oral Tablet (Senna S) Take 1 Tablet by mouth in the morning. 30 Tablet 0 Soaanz 40 MG Oral Tablet (Torsemide) Take 1 Tablet by mouth in the morning and 1 Tablet before bedtime. 60 Tablet 0 Tamsulosin HCl 0.4 MG Oral Capsule (Flomax) Take 1 Capsule by mouth in the morning. 100 Capsule 3 Warfarin Sodium 3 MG Oral Tablet Take 1 Tablet by mouth every evening. As per anti-coagulation clinic. 30 Tablet 0 Potassium Chloride Candi ER 20 MEQ Oral Tablet Extended Release Take 1 Tablet by mouth in the morning and 1 Tablet before bedtime. 60 Tablet 0 oxyCODONE HCl 5 MG Oral Tablet (Oxy IR) Take 1 Tablet by mouth every 6 hours as needed for Pain, Moderate or Pain, Severe. (Patient not taking: Reported on 07/19/2023) 30 Tablet 0 No current facility-administered medications for this visit. Review of patient's allergies indicates: No Known Allergies PHYSICAL EXAMINATION: BP Readings from Last 6 Encounters: 07/19/23 97/60 07/17/23 138/72 02/23/23 136/84 02/23/23 110/62 02/16/23 118/60 12/06/22 112/72 Wt Readings from Last 6 Encounters: 07/19/23 91.4 kg (201 lb 9.6 oz) 07/17/23 91.9 kg (202 lb 8 oz) 02/23/23 112 kg (247 lb) 02/23/23 112 kg (247 lb) 02/16/23 109.7 kg (241 lb 12.8 oz) 12/06/22 108 kg (238 lb) Pulse Readings from Last 6 Encounters: 07/19/23 64 07/17/23 90 02/23/23 64 02/23/23 62 02/16/23 96 12/06/22 68 NAD, oriented x 3, chronically ill appearing ambulatory w/ walker Normocephalic, atraumatic, eomi nonicteric sclerae MMM, hoarse voice Supple neck RRR w/o m/g/r; indurated trace - 1+ BLE R>L edema CTAB w/ reasonable air mvt; very slightly sob w/ much talk NT abd, +BS, soft No cyanosis or clubbing No rash; R medial calf wound bandanged No tremor, focal or global weakness; fluent speech, excellent historian LABS: Recent Labs Units 07/18/23 1334 07/07/23 0515 07/03/23 0548 06/28/23 0615 SODIUM - [facility] mmol/L 136 137 137 136 POTASSIUM - [facility] mmol/L 3.7 3.8 5.0 4.1 CHLORIDE - [facility] mmol/L 97* 97* 98 97* CO2 - [facility] mmol/L 26 30 29 29 BUN - [facility] mg/dL 53* 51* 53* 68* CREATININE - [facility] mg/dL 2.1* 2.6* 2.5* 3.0* ESTIMATED GLOMERULAR FILTRATION RATE - [facility] mL/min 32* 26* 27* 22* Latest Ref Rng 05/12/2021 09/29/2021 04/13/2022 11/16/2022 01/17/2023 02/23/2023 06/28/2023 NEPH-FLOW Cr 0.6 - 1.2 mg/dL 1.5 (H) 1.7 (H) 1.48 ! (E) 1.4 (H) 1.7 (H) 1.7 (H) 3.0 (H) eGFR >=60 mL/min 50 (L) 44 (L) 47.5 (E) 54 (L) 44 (L) 44 (L) 22 (L) Latest Ref Rng 07/03/2023 NEPH-FLOW Cr 0.6 - 1.2 mg/dL 2.5 (H) eGFR >=60 mL/min 27 (L) Recent Labs Units 07/18/23 1334 07/07/23 0515 07/03/23 0548 06/28/23 0615 11/16/22 1520 05/13/22 1441 HGB g/dL 11.3* 9.4* 9.9* 9.1* < > -- FERRITIN - [facility] ng/mL -- -- -- -- -- 47 TRANSFERRIN SATURATION PERCENT - [facility] % -- -- -- -- -- 15 < > = values in this interval not displayed. Recent Labs Units 07/18/23 1334 07/07/23 0515 07/03/23 0548 06/28/23 0615 02/23/23 1605 01/17/23 0904 11/16/22 1520 06/22/22 1501 05/13/22 1441 09/29/21 1340 CALCIUM - [facility] mg/dL 8.8 8.6 8.8 8.6 8.1* < > 8.0* -- -- 8.5 PHOSPHORUS - [facility] mg/dL 3.8 -- 3.7 -- -- -- 2.6 -- -- 2.9 25-HYDROXY VITAMIN D - [facility] ng/mL 48 -- -- -- -- -- 28 -- 27 24 PTH - [facility] pg/mL 280* -- -- -- 197* -- -- 129* -- 170* < > = values in this interval not displayed. Recent Labs Units 11/16/22 1520 05/13/22 1441 11/09/21 1530 HEMOGLOBIN A1C - [facility] % 6.5* 7.0* 6.7* Recent Labs Units 07/18/23 1334 11/16/22 1520 05/13/22 1441 09/29/21 1340 ALBUMIN / CREATININE RATIO, URINE - [facility] mg/g Creat 261* 857* 1,437* 1,817* Recent Labs Units 07/18/23 1334 09/29/21 1340 CLARITY, URINE - [facility] Clear Clear GLUCOSE, URINE - [facility] mg/dL Negative >=1000* BILIRUBIN, URINE - [facility] Negative Negative KETONE, URINE - [facility] mg/dL Negative Negative SPECIFIC GRAVITY, URINE - [facility] 1.014 1.009 BLOOD, URINE - [facility] Negative Trace* PH, URINE - [facility] Units 6.0 6.0 PROTEIN, URINE - [facility] mg/dL 30* 100* UROBILINOGEN, URINE - [facility] mg/dL Normal Normal NITRITE, URINE - [facility] Negative Negative ESTERASE, URINE - [facility] Moderate* Small* BACTERIA, URINE - [facility] /HPF 26-50* 0-25 WBC, URINE - [facility] /HPF 10-19* 10-19* RBC, URINE - [facility] /HPF 3-5* 0-2 ASSESSMENT AND PLAN: JORGE (acute kidney injury) (HCC) (Primary) Stage 3b chronic kidney disease (HCC) - BASIC METABOLIC PANEL; Future; Expected date: 08/18/2023 - IRON SCREEN, INCLUDING TIBC; Future; Expected date: 01/18/2024 Persistent proteinuria Hypotension, unspecified hypotension type Other hypervolemia 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 chronic kidney disease (HCC) - IRON SCREEN, INCLUDING TIBC; Future; Expected date: 01/18/2024 Hyperparathyroidism, secondary renal (HCC) Other orders - Potassium Chloride Candi ER 20 MEQ Oral Tablet Extended Release; Take 1 Tablet by mouth in the morning and 1 Tablet before bedtime. Follow Up: Return in about 4 months (around 11/18/2023) for clinic visit w/ PA. | For: clinic visit w/ PA Improving JORGE now stage 1 > not back to baseline yet. High risk for complications, sequelae related to JORGE stage 3 including morbidity/mortality/worse ckd 3/ hosp readmission -no mary kay/arb d/t low BP Hypotension today ? Cuase/ has nto been hypotensive other visits -cont midodrine -update pcp / cse mgt if feeling poorly next few days still Evaluate need for vitron C or not Volume controlled on torsemide and w/ elevation -cont daily weights -cont torsemide current dose PTH worse on last check but Ca and D stores ok -cont current D dose -recheck PTH / November labs (neph nurse reminder sent for orders) NOTES reviewed for this visit -[facility] neph c/s, d/c summary -PCP visit Patient Instructions -increase potassium to 20 mEq twice daily from daily -no change to other meds -take it easy the rest of the day > if your breathing is worse or still short or if your energy is still too low, contact [place] or Dr Armas -keep elevating your legs -check labs before August 30 visit w/ PCP and before November visit w/ Marycarmen -avoid medicines like aleve, advil, ibuprofen, aspirin more than 81 mg daily and other NSAIDS whichare not good for kidney patients. Take only tylenol (acetaminophen) up to 2000 mg daily as needed for pain or as directed by your primary care provider. -let me know if you need script for midodrine or other meds to [facility] -will let you know about vitron C or not Ladonna Fatima MD Nephrology [address] [place] [address] CC: Ref: LADONNA FATIMA[[id number]] [address] [place] [address] (office) [phone] (fax) PCP: SILVIA ARMAS [address] [place] [address] [place] [phone] This chart was completed in part utilizing [employer] Speech Voice Recognition Software. Randomword insertions, pronoun errors, and incomplete sentences are an occasional consequence of this system due to software limitations, and ambient noise. Any questions or concerns about the content, text, or information contained within the body of this dictation should be directly addressed to the provider for clarification. documented in this encounter Nursing Notes * Libby Hurd RN - 07/19/2023 1:47 PM EDT Hospital follow up today. Was in [facility] for 2 weeks,[facility] 1 1[facility]2 weeks and is now home.Following with [facility] weekly. Had a CT of RLE today due to a lump in calf.Ordered by Wound clinic. documented in this encounter Plan of Treatment Upcoming Encounters Date Type Department Care Team (Late st Contact Info) Description 08/01/2023 5:25 PM EDT Anticoagulation [facility], Ilya Lafleur [address] [place] [address] [place] [address] [place] [phone] [address] [facility] [place] [address] 08/31/2023 1:00 PM EDT Office Visit Family Medicine [address] [place] [phone] Sav[place] Al PA-C [address] [place] [address] [place] [address] 11/20/2023 2:00 PM EDT Office Visit Nephrology [address] [place] [address] Marycarmen Kowalski PA-C [address] [place] [address] 02/20/2024 12:30 PM EST Nurse Only Ancillary [address] [place] [address] [place], Nurse Annual [address] [place] [address] 03/08/2024 2:30 PM EST Office Visit Family Medicine [address] [place] [phone] [place] [address] Pending Results Name Type Priority Associated Diagnoses Date /Time IRON SCREEN, INCLUDING TIBC Lab Routine Stage 3b chronic kidney disease (HCC) 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 chronic kidney disease (HCC) 07/18/2023 1:34 PM EDT Scheduled Orders Name Type Priority Associated Diagnoses Orde r Schedule BASIC METABOLIC PANEL Lab Routine Stage 3b chronic kidney disease (HCC) Expected: 08/18/2023 (Approximate), Expires: 07/18/2024 IRON SCREEN, INCLUDING TIBC Lab Routine Stage 3b chronic kidney disease (HCC) 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 chronic kidney disease (HCC) Expected: 01/18/2024 (Approximate), Expires: 07/18/2024 Scheduled Procedures Name Priority Associated Diagnoses Date/Ti [...] Additional history exists CKD HGB USE SMARTSET 01895 07/17/202407/17, 07/07/2023, 07/03/2023, Additional history exists CKD PHOS USE SMARTSET 69156 07/17/2024 06/0 05/2023, 07/03/2023, 11/16/2022, Additional history [...] this encounter Medical Devices Implanted Type Area Profile Saw Setup Operator Device Identifier Shelf Expiration Date Model / Serial / Lot Shaft Fibula 6cm [id number] - [id number] Implanted:Qty: 1 on 09/05/2008 at [place] [facility] Tissue - Human N/A: Spine Cervical MUSCULOSKELETAL TRANSPLANT FND 04/20/2010 [id number] / [id number] 0P / Stent Eso Gw 22x70 [id number] - [id number] Implanted:Qty: 1 on 01/21/2008 at OR [facility] N/A: Esophagus [employer] 04/12/2009 [id number] / / [id number] Depuy Uniplate 32 Implanted:Qty: 1 on 09/05/2008 at OR [facility] N/A: Spine Cervical TAMMY [employer] TAMMY DEPUY 1897-02-302 / / Depuy Uniplate Screw 14mm Implanted:Qty: 2 on 09/05/2008 at OR [facility] N/A: Spine Cervical TAMMY [employer] TAMMY DEPUY 1897-06-017 / / Depuy Lordotic Bengal Cage Implanted:Qty: 1 on 05/07/2010 at OR [facility] N/A: Neck 1773-06-146 / [id number] / Plate Zach 3 Level Ti 54mm - [id number] Implanted:Qty: 1 on 05/07/2010 at OR [facility] N/A: Neck JNJ : DEPUY SPINE [id number] / / Screw Zach Const St Ti 14mm - [id number] Implanted:Qty: 4 on 05/07/2010 at OR [facility] N/A: Neck JNJ : DEPUY SPINE [id number] / / Screw 3.5x14 Mntr Fa [id number] - [id number] Implanted:Qty: 8 on 05/07/2010 at OR [facility] N/A: Spine Cervical JNJ : ETHICON C[employer]IOVATIONS [id number] / / Jarrell 3.3n121rs [id number] - [id number] Implanted:Qty: 1 on 05/07/2010 at OR [facility] N/A: Spine Cervical JNJ : ETH[employer]ON [employer] [id number] / / Screw Inner Mn [id number] - [id number] Implanted:Qty: 8 on 05/07/2010 at OR [facility] N/A: Spine Cervical JNJ : ETHICON [employer]ATIONS [id number] / / Envista Intraocular Lens Implanted:Qty: 1 on 03/10/2022 by iLang Marshall MD at [facility] Right: Eye BAUSCH & LOMB 08/13/2023 [id number] / [id number] / [id number] Envista Intraocular Lens Implanted:Qty: 1 on 03/24/2022 by Liang Marshall MD at OR [facility] Left: Eye BAUSCH & LOMB 07/13/2024 [id number] / [id number] / [id number] documented as of this encounter Visit Diagnoses Diagnosis JORGE (acute kidney injury) (HCC)- Primary Acute kidney failure, unspecified Stage 3b chronic kidney disease (HCC) Persistent proteinuria Proteinuria Hypotension, unspecified hypotension type Other hypervolemia 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 chronic kidney disease (HCC) Hyperparathyroidism, secondary renal (HCC) Secondary hyperparathyroidism (of renal origin) documented in this encounter Advance Directives Documents on File Type Date Recorded Patient Union Representative Expl anation POLST 01/26/2021 [place] [facility] * No [...] Power of Attor andrew? No Care Teams Sheet Metal Apprentice Relationship Specialty Start Date End Date Silvia Armas DO [address] [place] [address] [place] [address] PCP - General Internal Medicine 11/09/16 documented as of this encounter"
--- OUTSIDE RECORDS SUMMARY | 2023-08-01 09:31 | External Medical Summary ---
Author Name Unknown Address Unknown Organization K01:LABORATORY [facility] [place] - [facility] [address] [facility] [address] [place] [address] Laboratory Report Ordering Provider Test Date Status KUSHAL DOUGHERTY 07/18/2023 13:34:21 Final Observation Date Value Abnormality Reference (Units ) Status BUN 07/18/2023 13:34:21 53 Above high normal 6-20 (mg/dL) Final Creatinine 07/18/2023 13:34:21 2.1 Above high normal 0.6-1.2 (mg/dL) Final Glomerular filtration rate/1.73 sq M.predicted [Volume Rate/Area] in Serum, Plasma or Blood by Creatinine-based formula (CKD-EPI) 07/18/2023 13:34:21 32 Below low normal >=60 (mL/min) Final eGFR is calculated based on the CKD-EPI 2020 equation Sodium 07/18/2023 13:34:21 136 135-146 (m mol/L) Final Potassium 07/18/2023 13:34:21 3.7 3.5-5.1 (m mol/L) Final Cl 07/18/2023 13:34:21 97 Below low normal 98- 107 (mmol/L) Final CO2 07/18/2023 13:34:21 26 22-32 (mmo l/L) Final Anion gap 07/18/2023 13:34:21 13 7-15 (mmol /L) Final Glucose 07/18/2023 13:34:21 112 70-120 (mg /dL) Final Calcium 07/18/2023 13:34:21 8.8 8.4-10.2 ( mg/dL) Final Performing Location LABORATORY [facility] [place] - [address] [place] [address]
--- OUTSIDE RECORDS SUMMARY | 2023-08-01 09:31 | External Medical Summary ---
Author Name Unknown Address Unknown Organization K01:[place] [place] [address] [place] [address] Laboratory Report Ordering Provider Test Date Status KUSHAL DOUGHERTY 07/18/2023 13:34:21 Final Normal: <30 mg/g creatinine< br/>High: 30-300 mg/g creatinine
Very High: >300 mg/g creatinine
Nephrotic: >2200 mg/g creatinine Observation Date Value Abnormality Reference (Units ) Status Albumin, Urine 07/18/2023 13:34:21 25.05 (mg/dL) Final Creatinine, Urine 07/18/2023 13:34:21 96 (mg/dL) Final Albumin/Creatinine [Mass Ratio] in Urine 07/18/2023 13:34:21 261 Above high normal <30 (mg/g Creat) Final Performing Location [facility] [place] [address] [place] [address]
--- OUTSIDE RECORDS SUMMARY | 2023-08-01 09:31 | External Medical Summary ---
Author Name Unknown Address Unknown Organization K01:[place] [place] [facility] [address] [facility] [address] [place] [address] Laboratory Report Ordering Provider Test Date Status LADONNAKUSHAL 07/18/2023 13:34:21 Final Observation Date Value Abnormality Reference (Units ) Status WBC, Total 07/18/2023 13:34:21 5.99 4.00-10.80 (K/uL) Final RBC 07/18/2023 13:34:21 3.95 4.50-5.25 (M/uL) Final Hemoglobin 07/18/2023 13:34:21 11.3 Below low normal 14.0-16.8 (g/dL) Final HCT 07/18/2023 13:34:21 36.9 Below low normal 40.0-48.4 (%) Final MCV 07/18/2023 13:34:21 93.4 82.0-99.5 (fL) Final MCH 07/18/2023 13:34:21 28.6 27.0-34.0 (pg) Final MCHC 07/18/2023 13:34:21 30.6 32.0-36.0 (g/dL) Final RDW 07/18/2023 13:34:21 14.3 11.5-15.5 (%) Final Platelets 07/18/2023 13:34:21 230 140-400 (K/uL) Final MPV 07/18/2023 13:34:21 11.7 6.6-11.1 (fL) Final Nucleated erythrocytes/100 leukocytes [Ratio] in Blood by Automated count 07/18/2023 13:34:21 0 <=0 (/100 WBCs) Final Performing Location [facility] [place] [address] [place] [address]
--- OUTSIDE RECORDS SUMMARY | 2023-08-01 09:31 | External Medical Summary ---
Author Name Unknown Address Unknown Organization K01:LABORATORY [facility] - [address] [place] [address] Laboratory Report Ordering Provider Test Date Status KUSHAL DOUGHERTY 07/18/2023 13:34:21 Final Observation Date Value Abnormality Reference (Units ) Status Magnesium 07/18/2023 13:34:21 2.0 1.5-2.6 (m g/dL) Final Performing Location LABORATORY [facility] - [address] [place] [address]
--- OUTSIDE RECORDS SUMMARY | 2023-08-01 09:31 | External Medical Summary | Summary of Care ---
Author Name Unknown Organization [facility] Address [address] [facility] [place] [address] Phone [phone] Care Team Providers Care Union Representative Name Role Phone DesaiJocelyne DO Primary Care Provider + [phone] Reason for Visit * Reason Onset Date Comments Hospital Follow-Up Pt states fee ling "a lot better", still gets tired easily. Hospital Follow-Up 07/17/2023 Encounter Details Date Type Department Care Team (Late st Contact Info) Description 07/17/2023 1:20 PM EDT Office Visit Family Medicine [address] [phone] Kalie Almonte MD [address] [place] [address] [place] [phone] Hospital discharge follow-up*; 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 kidney disease (HCC); Venous ulcer of right leg (HCC); Type 2 diabetes, controlled, with peripheral neuropathy (HCC); Pressure sore on heel, right, unstageable (HCC); Pressure injury of sacral region, stage 1; Visual disturbance Allergies No known active allergiesdocumented as of this encounter (statuses as of 07/17/2023) Medications Medication Sig Dispensed Refills Start Date [...] as of this encounter (statuses as of 07/17/2023) Active Problems Patient Care Coordination No te Formatting of this note migh t be different from the original. Good connectivity [facility] for wound care [phone] Televideo if needed. Problem Noted Date Diagnosed Date MRSA (methicillin resistant Staphylococcus aureu s) 06/30/2023 Orthostatic hypotension 06/30/2023 Pressure injury of buttock, stage 2 06/30/2023 Full code status 06/28/2023 Calculus of gallbladder with out cholecystitis without obstruction 06/28/2023 Stasis ulcer 06/28/2023 History of OH (myocardial infarction) 11/09/2021 Trigger ring finger of left hand 11/09/2021 Overview: Also middle finger 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, with fat layer exposed 07/13/2021 Last Assessment & Plan: Ulcer appears overall improved. He has significant history DM and PVD and recommended he still follow up with podiatry,. Letter in chart from [facility] podiatry they were unable to get [...] ICD-10 update of inactive term PLATT RESEARCH OTHER*[id number] 02/20/2007 ADVANCE DIRECTIVE INFORMATION 01/19/2005 Overview: Yes, Patient instructed to provide copy of advance directive for provider to review and to be scanned into Electronic Medical Record No, Advance Directive brochure given to patient at prior appointment. SPINAL STENOSIS-LUMBAR 09/23/2002 Vitamin D deficiency Cervical spinal stenosis documented as of this encounter (statuses as of 07/17/2023) Resolved Problems Problem Noted Date Diagnosed Date Resolved Date Depression, unspecified 11/09/2021 03/ Depression, unspecified 11/09/202105/2022 Cellulitis of right leg 07/13/202105/2022 Last Assessment & Plan: Suspect this could be early/localized. Will treat with 7 days antibiotic. If pt cannot be reassess by Dr. Braxton office early next week will need [facility] provider recheck Multiple and open [...] failure and stage 3a chronic kidney disease 12/23/201906/131 Overview: Per CKD protocol Hypertensive heart and [...] 11/17/19 23 LUMBAGO 12/24/2002 05/09/2007 LOC PRIM [id number] 12/24/200208/13 DEGENERATIVE SKIN DISORD 12/24/2002 VERTEBRAL FX [...] as of this encounter (statuses as of 07/17/2023) Immunizations Name Administration Dates Next Due COVID-19 mRNA, LNP-s, No Pre serve, 2-Dose Series (Moderna) 03/19/2020 COVID-19 mRNA, LNP-s, No Pre serve, 2-Dose Series (Pfizer) 02/16/2021,04/09/2020,03/19/2020 COVID-19, MRNA-LNP, 23-24, P F, 30 MCG/0.3 mL, 12 YRS AND ABOVE, IM ([employer]) 11/16/2022 Covid-19, Mrna, Lnp-s, Pf, B ivalent, [...] Sign Reading Time Taken Comments Blood Pressure 138/72 07/17/2023 1:25 PM EDT Pulse 90 07/17/2023 1:25 PM EDT Temperature 36.6 C (97.9 F) 07/17/2023 1:25 PM ED T Respiratory Rate - - Oxygen Saturation 94% 07/17/2023 1:25 PM EDT Inhaled Oxygen Concentration - - Weight 91.9 kg (202 lb 8 oz) 07/17/2023 1:25 PM EDT Height - - Body Mass Index 28.24 02/23/2023 1:42 PM EST documented in this encounter Progress Notes * Kalie Almonte MD - 07/17/2023 1:38 PM EDT SUBJECTIVE: Lg Cooley is a 73 year old male. Chief Complaint Patient presents with Hospital Follow-Up Pt states feeling "a lot better", still gets tired easily. Hospital Follow-Up Recent Admission: Patient was recently admitted to [facility]. The date of discharge was 07/08/23. Discharge reportreceived and reviewed. HPI: Akshat is here for hospital/ [place] follow up. He was admitted to [facility] for leg wounds and associatedcellulitis, and transitioned to [facility] for wound care. Also suffered JORGE in the hospital, returning tobaseline Cr (2.6) by discharge. TODAY: States he feels much better. Lost a lot of strength being in the hospital, feels he is getting stronger every day. Getting exercise daily; going for walks using his walker. Doing exercise on his own;declined HH PT. nursing coming out 3 x per week to change his bandages. Has 5 wounds: Right calfvenous stasis ulcer with associated cellulitis (resolved); developed pressure sores of right foot (c hronic), bilat heels (new pressure sores during hospitalization), and sacral pressure sore (new this hospitalization). He is back to outpatient wound clinic, and states wounds are improving. Notes seeing a change in the vision in his left eye; recommend ophthalmology consult Patient Active Problem List Diagnosis SPINAL STENOSIS-LUMBAR ADVANCE DIRECTIVE INFORMATION Vitamin D deficiency Cervical spinal stenosis Type 2 diabetes mellitus with hemoglobin A1c goal of less than 7.5% ([facility]) HTN, goal below 140/90 DYSLIPIDEMIA, GOAL LDL BELOW 100 FERDINAND RESEARCH OTHER*[id number] Erectile dysfunction DM neuropathy, type II diabetes mellitus ([facility]) Paroxysmal SVT (supraventricular tachycardia) ([facility]) Cardiac pacemaker in situ Venous insufficiency of both lower extremities Microalbuminuric diabetic nephropathy ([facility]) Chronic atrial fibrillation ([facility]) Peripheral sensory neuropathy Vitamin B12 deficiency Cerebrovascular disease, arteriosclerotic, 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 ([facility]) Type 2 diabetes, controlled, with peripheral neuropathy ([facility]) Type 2 diabetes mellitus with peripheral vascular disease ([facility]) Persistent proteinuria H/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 Complex sleep apnea syndrome Nocturnal hypoxemia Type 2 diabetes mellitus with stage 3b chronic kidney disease, without long-term current use of insulin ([facility]) Sleep apnea treated with nocturnal BiPAP PAD (peripheral artery disease) ([facility]) Hyperparathyroidism, secondary renal ([facility]) Diabetes mellitus due to underlying condition with severe nonproliferative diabetic retinopathy with macular edema, unspecified eye ([facility]) 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 kidney disease ([facility]) Esophageal obstruction S/P angioplasty with stent 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, without long-term current use of insulin (HCC) Chronic kidney disease, stage 3b ([facility]) Non-pressure chronic ulcer of other part of right foot with unspecified severity ([facility]) Acquired absence of right great toe ([facility]) 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, with fat layer exposed ([facility]) History of OH (myocardial infarction) Trigger ring finger of left hand Full code status Calculus of gallbladder without cholecystitis without obstruction Stasis ulcer ([facility]) MRSA (methicillin resistant Staphylococcus aureus) Orthostatic hypotension Pressure injury of buttock, stage 2 (HCC) Current Outpatient Medications Medication Sig Dispense Refill [...] Tablet in the evening. 90 Tablet 0 oxyCODONE HCl 5 MG Oral Tablet (Oxy IR) Take 1 Tablet by mouth every 6 hours as needed for Pain, Moderate or Pain, Severe. 30 Tablet 0 Ozempic (0.25 or 0.5 MG/DOSE) 2 MG/3ML Solution Pen-injector (Semaglutide(0.25 or 0.5MG/DOS)) Inject 0.25 mg under the skin once a week 3 mL 0 Potassium Chloride Candi ER 20 MEQ Oral Tablet Extended Release Take 1 Tablet by mouth in the morning. 30 Tablet 0 Sennosides-Docusate Sodium 8.6-50 MG Oral Tablet [...] As per anti-coagulation clinic. 30 Tablet 0 No current facility-administered medications for this visit. Current and discharge medications have been reconciled. Review of patient's allergies indicates: No Known Allergies OBJECTIVE: BP 138/72 | Pulse 90 | Temp 36.6 C (97.9 F) | Wt 91.9 kg (202 lb 8 oz) | SpO2 94% | BMI 28.24 kg/m | BSA 2.15 m REVIEW OF SYSTEMS: PHYSICAL EXAM: BP 138/72 | Pulse 90 | Temp 36.6 C (97.9 F) | Wt 91.9 kg (202 lb 8 oz) | SpO2 94% | BMI 28.24 kg/m | BSA 2.15 m Physical Exam Constitutional: Appearance: Normal appearance. Cardiovascular: Rate and Rhythm: Normal rate and regular rhythm. Pulmonary: Effort: Pulmonary effort is normal. Breath sounds: Normal breath sounds. Musculoskeletal: Right lower leg: Edema present. Left lower leg: Edema present. Comments: Trace bilat LE edema; venous stasis dermatitis; right calf wound dressing c/d/i Neurological: Mental Status: He is alert. ASSESSMENT: Hospital discharge follow-up (Primary) - DISCH MED RECON CUR MED LIS 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 kidney disease (HCC) - RENAL FUNCTION PANEL; Future; Expected date: 08/16/2023 Venous ulcer of right leg (HCC) Type 2 diabetes, controlled, with peripheral neuropathy (HCC) Pressure sore on heel, right, unstageable (HCC) Pressure injury of sacral region, stage 1 Visual disturbance Follow Up: Return in 4 weeks (on 08/14/2023) for Return with Physician. | For: Return with Physician | Check-out note: Follow up Dr Desai 1 month Patient will schedule ophthalmology himself PLAN: Continue current medications; schedule eye evaluation; follow up in 1 month with PCP and have labs done Follow up as needed. I spent a total of 30-39 minutes (exact time 37 mins) minutes on the date of service in preparation, delivery, and documentation of the care provided to Lg Cooley excluding any time spent in performance of separately billed services. Kalie Ryan MD documented in this encounter Plan of Treatment Upcoming Encounters Date Type Department Care Team (Late st Contact Info) Description 07/18/2023 6:15 AM EDT Anticoagulation Pharmacy Call Center [phone] [facility] [place] [address] [facility] [address] [facility] [place] [address] 08/31/2023 1:00 PM EDT Office Visit Family Medicine [address] [place] [phone] Saavnna Al PA-C [address] [place] [address] [place] [address] 11/20/2023 2:00 PM EDT Office Visit Nephrology [address] [place] [address] Marycarmen Kowalski PA-C [address] [facility] [address] 02/20/2024 12:30 PM EST Nurse Only Ancillary [address] [place] [address] [place], Nurse Annual [address] [place] [address] 03/08/2024 2:30 PM EST Office Visit Family Medicine [address] [place] [phone] [address] [place] [address] Scheduled Orders Name Type Priority Associated Diagnoses Orde r Schedule RENAL FUNCTION PANEL Lab Routine 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 kidney disease (HCC) Expected: 08/16/2023 (Approximate), Expires: 2024 Scheduled Procedures Name Priority Associated Diagnoses Date/Ti [...] Screening 02/17/2024 02/16/2023 CKD PHOS USE SMARTSET 33883 07/02/202406/14, 11/16/2022, 09/29/2021, Additional history exists CKD HGB USE SMARTSET 10197 07/06/202407/06, 07/03/2023, 07/03/2023, Additional history exists DTaP,Tdap,and [...] this encounter Medical Devices Implanted Type Area Traveling Accountant Device Identifier Shelf Expiration Date Model / Serial / Lot Shaft Fibula 6cm [id number] - [id number] Implanted:Qty: 1 on 09/05/2008 [place] [facility] [place] Tissue - Human N/A: Spine Cervical MUSCULOSKELETAL TRANSPLANT FND 04/20/2010 [id number] / [id number] / Stent Eso Gw 22x70 [id number] - [id number] Implanted:Qty: 1 on 01/21/2008 at [place] [facility] [place] N/A: Esophagus [employer] 04/12/2009 [id number] / / [id number] Depuy Uniplate 32 Implanted:Qty: 1 on 09/05/2008 at [place] [facility] [place] N/A: Spine Cervical TAMMY & TAMMY DEPUY 1897--[id number] / / Depuy Uniplate Screw 14mm Implanted:Qty: 2 on 09/05/2008 at [place] [facility] [place] N/A: Spine Cervical TAMMY & TAMMY DEPUY 1897--[id number] / / Depuy Lordotic Bengal Cage Implanted:Qty: 1 on 05/07/2010 at [place] [facility] [place] N/A: Neck [id number] / [id number] / Plate Zach 3 Level Ti 54mm - [id number] Implanted:Qty: 1 on 05/07/2010 at [place] [facility] [place] N/A: Neck JNJ : DEPUY SPINE [id number] / / Screw Zach Const St Ti 14mm - [id number] Implanted:Qty: 4 on 05/07/2010 at [place] [facility] [place] N/A: Neck JNJ : DEPUY SPINE [id number] / / Screw 3.5x14 Mntr Fa [id number] - [id number] Implanted:Qty: 8 on 05/07/2010 at [place] [facility] [place] N/A: Spine Cervical JNJ : [employer] [id number] / / Jarrell [id number] - [id number] Implanted:Qty: 1 on 05/07/2010 at [place] [facility] [place] N/A: Spine Cervical JNJ : [employer] [id number] / / Screw Inner Mntr [id number] - [id number] Implanted:Qty: 8 on 05/07/2010 at [place] [facility] [place] N/A: Spine Cervical JNJ : ETH[employer]ON [employer] [id number] / / Envista Intraocular Lens Implanted:Qty: 1 on 03/10/2022 by Liang Marshall MD at OR [facility] Right: Eye BAUSCH [employer] LOMB 08/13/2023 [id number] / [id number] / [id number] Envista Intraocular Lens Implanted:Qty: 1 on 03/24/2022 by Liang Marshall MD at OR [facility] Left: Eye BAUSCH [employer] LOMB 07/13/2024 [id number] / [id number] / [id number] documented as of this encounter Visit Diagnoses Diagnosis Hospital discharge follow-up- Primary Other follow-up examination 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 kidney disease (HCC) Venous ulcer of right leg (HCC) Type 2 diabetes, controlled, with peripheral neuropathy (HCC) Type II or unspecified type diabetes mellitus with neurological manifestations, not stated as uncontrolled Pressure sore on heel, right, unstageable (HCC) Pressure ulcer, heel Pressure injury of sacral region, stage 1 Visual disturbance Unspecified visual disturbance documented in this encounter Advance Directives Documents on File Type Date Recorded Patient Inspector Quality Assurance Expl anation POLST 01/26/2021 [place] [facility] * No Code [...] Power of Attor andrew? No Care Teams Union Representative Relationship Specialty Start Date End Date Jocelyne Desai DO [address] [place] [address] [place] [address] PCP - General Internal Medicine 11/09/16 documented as of this encounter
--- OUTSIDE RECORDS SUMMARY | 2023-08-01 09:31 | External Medical Summary | Summary of Care ---
Author Name Unknown Organization [facility] Address [address] [place] [address] Phone [phone] Care Team Providers Care Supervisor Pleating Name Role Phone Jocelyne Desai Primary Care Provider [phone] Reason for Visit * Reason Onset Date Comments Other 07/17/2023 Order Request 07/17/2023 Encounter Details Date Type Department Care Team (Late st Contact Info) Description 07/17/[address] [place] [address] Services, Scheduling [address] [place] [address] Other; Order Request Allergies No known active [...] be different from the original. Good connectivity [facility] for wound care [phone] Televideo if needed. Problem Noted Date Diagnosed Date MRSA (methicillin resistant Staphylococcus aureu s) 06/30/2023 Orthostatic hypotension 06/30/2023 Pressure injury of buttock, stage 2 06/30/2023 Full code status 06/28/2023 Calculus of gallbladder with out cholecystitis without obstruction 06/28/2023 Stasis ulcer 06/28/2023 History of [place] (myocardial infarction) 11/09/2021 Trigger ring finger of left hand 11/09/2021 Overview: Also middle finger 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, with fat layer exposed 07/13/2021 Last Assessment & Plan: Ulcer appears overall improved. He has significant history DM and PVD and recommended he still follow up with podiatry,. Letter in chart from [facility] podiatry they were unable to get [...] H/O gastric bypass 11/27/2018 Overview: RYGB intermediate current use of 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 1 [...] ICD-10 update of inactive term PLATT RESEARCH OTHER*[id number] 02/20/2007 ADVANCE DIRECTIVE INFORMATION 01/19/2005 Overview: Yes, [...] [place] office early next week will need [facility] provider recheck Multiple and open [...] 11/17/19 23 LUMBAGO 12/24/2002 05/09/2007 LOC PRIM [id number] 12/24/200208/13 DEGENERATIVE SKIN DISORD 12/24/2002 VERTEBRAL FX [...] mRNA, LNP-s, No Pre serve, 2-Dose Series ([employer]) 02/16/2021,04/09/2020,03/19/2020 COVID-19, MRNA-LNP, 23-24, P F, 30 MCG/0.3 mL, 12 YRS AND ABOVE, IM ([facility]) 11/16/2022 Covid-19, Mrna, Lnp-s, Pf, B ivalent, [...] encounter Miscellaneous Notes * Telephone Encounter - Marisela Peraza LPN - 07/17/2023 1:18 PM EDT Looks like labs faxed when pt was in [facility] were completed 07/07/23 LMM will check with MD If additional labs are needed See message above would you be recommending additional labs next f/u is 11/20/23 in [facility] with Marycarmen * Telephone Encounter - Alyx Marroquin OSA - 07/17/2023 12:28 PM EDT Good afternoon, Pt on the line stating he was discharged from [facility] and he wanted to know if he [...] 6:15 AM EDT Anticoagulation Pharmacy Call Center WB [address] [place] [address] [facility] 58 60 [facility] [place] [address] 11/20/2023 2:00 PM EDT Office Visit Nephrology [address] [place] [address] ZeMarycarmen alan PA-C [address] [place] [address] 02/20/2024 12:30 PM EST Nurse Only Ancillary [address] [place] [address] [place], Nurse [address] [place] [address] Scheduled Procedures Name Priority Associated Diagnoses Date/Ti [...] Screening 02/17/2024 02/16/2023 CKD PHOS USE SMARTSET 19894 07/02/202406/14, 11/16/2022, 09/29/2021, Additional history exists CKD HGB USE SMARTSET 62806 07/06/202407/06, 07/03/2023, 07/03/2023, Additional history exists DTaP,Tdap,and [...] this encounter Medical Devices Implanted Type Area On Call Pharmacy Technician Device Identifier Shelf Expiration Date Model / Serial / Lot Shaft Fibula 6cm [id number] - [id number] Implanted:Qty: 1 on 09/05/2008 [place] [facility] - Human N/A: Spine Cervical MUSCULOSKELETAL TRANSPLANT FND 04/20/2010 [id number] / [id number] 0P / Stent Eso Gw 22x70 [id number] - [id number] Implanted:Qty: 1 on 01/21/2008 at [place] [facility] [place] N/A: Esophagus ALVEOLUS INC 04/12/2009 [id number] / / [id number] Depuy Uniplate 32 Implanted:Qty: 1 on 09/05/2008 at [place] [facility] [place] N/A: Spine Cervical TAMMY & TAMMY DEPUY 1897--302 / / Depuy Uniplate Screw 14mm Implanted:Qty: 2 on 09/05/2008 at [place] [facility] [place] N/A: Spine Cervical TAMMY & TAMMY DEPUY 1897--017 / / Depuy Lordotic Bengal Cage Implanted:Qty: 1 on 05/07/2010 at [place] [facility] [place] N/A: Neck 1773-06-146 / 1773-06-146 / Plate Zach 3 Level Ti 54mm - [id number] Implanted:Qty: 1 on 05/07/2010 at [place] [facility] [place] N/A: Neck JNJ : DEPUY SPINE [id number] / / Screw Zach Const St Ti 14mm - [id number] Implanted:Qty: 4 on 05/07/2010 at [place] [facility] [place] N/A: Neck JNJ : DEPUY SPINE [id number] / / Screw 3.5x14 Mntr Fa [id number] - [id number] Implanted:Qty: 8 on 05/07/2010 at [place] [facility] [place] N/A: Spine Cervical JNJ : ETHICON CARDIOVATIONS [id number] / / Jarrell [id number] - [id number] Implanted:Qty: 1 on 05/07/2010 at [place] [facility] [place] N/A: Spine Cervical JNJ : ETHICON CARDIOVATIONS [id number] / / Screw Inner Mntr [id number] - [id number] Implanted:Qty: 8 on 05/07/2010 at [place] [facility] [place] N/A: Spine Cervical JNJ : ETHICON CARDIOVATIONS [id number] / / Envista Intraocular Lens Implanted:Qty: 1 on 03/10/2022 by Liang Marshall MD at OR [facility] Right: Eye BAUSCH & LOMB 08/13/2023 [id number] / [id number] / [id number] Envista Intraocular Lens Implanted:Qty: 1 on 03/24/2022 by Liang Marshall MD at OR [facility] Left: Eye BAUSCH & LOMB 07/13/2024 [id number] / [id number] / [id number] documented as of this encounter Advance Directives Documents on File Type Date Recorded Patient Clinical Trial Specialist Expl anation POL 01/26/2021 [place] OR [facility] FOR LIFE-SUSTAINING TREATMENT * No [...] Power of Attor andrew? No Care Teams Supervisor Pleating Relationship Specialty Start Date End Date Jocelyne Desai DO [address] [place] [address] [place] [address] PCP - General Internal Medicine 11/09/16 documented as of this encounter
--- OUTSIDE RECORDS SUMMARY | 2023-08-01 09:31 | External Medical Summary | Summary of Care ---
Author Name Unknown Organization [facility] Address [address] [facility] [place] [address] Phone [phone] Care Team Providers Care Blow Molding Machine Operator Name Role Phone DesaiElissaJocelynejohn Cunninghame DO Primary Care Provider + [phone] Reason for Visit * Reason Comments Dosage Adjustment Via Phone (anticoag Cl inic) Encounter Details Date Type Department Care Team (Latest Contact Info) Description 07/18/2023 6:15 AM EDT Anticoagulation Pharmacy Call Center [phone] [facility] [address] [facility] 58 60 [place] [address] Chronic atrial fibrillation (HCC)* Allergies No known [...] be different from the original. Good connectivity [facility] for wound care [phone] Televideo if needed. 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 He has significant history DM and PVD and recommended he still follow up with podiatry,. Letter in chart from [facility] podiatry they were unable to [...] ICD-10 update of inactive term PLATT RESEARCH OTHER*[id number] 02/20/2007 ADVANCE DIRECTIVE INFORMATION 01/19/2005 Overview: Yes, [...] part of left foot with unspecified severity 05/31/2019 10/0 05/2022 CSA (central sleep apnea) 12/05/2018 Lopez catheter [...] 11/17/19 23 LUMBAGO 12/24/2002 05/09/2007 LOC PRIM [id number] 12/24/200208/13 DEGENERATIVE SKIN DISORD 12/24/2002 VERTEBRAL FX [...] MCG/0.3 mL, 12 YRS AND ABOVE, IM ([facility]) 11/16/2022 Covid-19, Mrna, Lnp-s, Pf, B ivalent, [...] Notes * Madai Perera PHARM Tech - 07/18/2023 11:12 AM EDT Contacts Type Contact Phone/Fax 07/18/2023 11:10 AM EDT Phone (Outgoing) Lg Cooley" (Self) [phone] (H) Spoke to Patient Subjective Patient Findings [...] as noted by Pharmacist: Yes AMOS Jensen 07/18/2023, 11:12 AM * Estefania Palacios [facility] - 07/18/2023 9:56 AM EDT Coumadin Clinic (region specific) Objective Current Warfarin Dose As of 07/18/2023 Warfarin maintenance plan: 3 mg (3 mg x 1) every Mon, e, Mariel; 1.5 mg (3 mg x 0.5) all other days INR Result As of 07/18/2023 INR goal: 2.0-3.0 INR used for dosin.3 (07/17/2023) Assessment & Plan Warfarin Plan As of 07/18/2023 Full warfarin instructions: 3 mg every Mon, Mon, Mon; 1.5 mg all other days No change documented: Estefania Palacios RPh Next INR check: 07/31/2023 Repeat PT/INR in 2 week(s) Weekly dose: not changed Additional Dosing Information: Description [facility] Nurses -- Mondays and Fridays ; fax - [phone] ([facility]) Tech to contact patient with dose instructions as noted. Estefania Palacios RPh 07/18/2023, 9:56 AM documented in this encounter Plan of Treatment Upcoming Encounters Date Type Department Care Team (Late st Contact Info) Description 07/19/2023 1:40 PM EDT Office Visit Nephrology [address] [place] [address] Jennifer Agustin MD [address] [facility] [place] [address] 08/31/2023 1:00 PM EDT Office Visit Family Medicine [address] [place] [phone] Savanna Al PA-C [address] [place] [address] [place] [address] 11/20/2023 2:00 PM EDT Office Visit Nephrology [address] [place] [address] Marycarmen Kowalski PA-C [address] [place] [address] 02/20/2024 12:30 PM EST Nurse Only Ancillary [address] [place] [address] [place], Nurse [address] [place] [address] 03/08/2024 2:30 PM EST Office Visit Family Medicine [address] [place] [phone] [place] [address] Scheduled Procedures Name Priority Associated Diagnoses Date/Ti [...] Screening 02/17/2024 02/16/2023 CKD PHOS USE SMARTSET 37004 07/02/202406/14, 11/16/2022, 09/29/2021, Additional history exists CKD HGB USE SMARTSET 96778 07/06/202407/06, 07/03/2023, 07/03/2023, Additional history exists DTaP,Tdap,and [...] this encounter Medical Devices Implanted Type Area Manager Of Digital Device Identifier Shelf Expiration Date Model / Serial / Lot Shaft Fibula 6cm [id number] - [id number] Implanted:Qty: 1 on 09/05/2008 at [place] [facility] [place] Tissue - Human N/A: Spine Cervical MUSCULOSKELETAL TRANSPLANT FND 04/20/2010 [id number] / [id number] 0P / Stent Eso Gw 22x70 53470-647 - [id number] Implanted:Qty: 1 on 01/21/2008 at OR [facility] [place] N/A: Esophagus ALVEOLUS INC 04/12/2009 96651-314 / / [id number] Depuy Uniplate 32 Implanted:Qty: 1 on 09/05/2008 at OR [facility] [place] N/A: Spine Cervical TAMMY & TAMMY DEPUY 1897-02-302 / / Depuy Uniplate Screw 14mm Implanted:Qty: 2 on 09/05/2008 at OR [facility] [place] N/A: Spine Cervical TAMMY & TAMMY DEPUY 1897-06-017 / / Depuy Lordotic Bengal Cage Implanted:Qty: 1 on 05/07/2010 at OR [facility] [place] N/A: Neck 1773-06-146 / 1773-06-146 / Plate Zach 3 Level Ti 54mm - [id number] Implanted:Qty: 1 on 05/07/2010 at OR [facility] [place] N/A: Neck JNJ : DEPUY SPINE [id number] / / Screw Zach Const St Ti 14mm - [id number] Implanted:Qty: 4 on 05/07/2010 at OR [facility] N/A: Neck JNJ : DEPUY SPINE [id number] 14 / / Screw 3.5x14 Mntr Fa [id number] - [id number] Implanted:Qty: 8 on 05/07/2010 at OR [facility] [place] N/A: Spine Cervical JNJ : ETHICON CARDIOVATIONS [id number] / / Jarrell [id number] - [id number] Implanted:Qty: 1 on 05/07/2010 at OR [facility] [place] N/A: Spine Cervical JNJ : ETHICON CARDIOVATIONS [id number] / / Screw Inner Mntr [id number] - [id number] Implanted:Qty: 8 on 05/07/2010 at OR [facility] [place] N/A: Spine Cervical JNJ : ETHICON CARDIOVATIONS [id number] / / Envista Intraocular Lens Implanted:Qty: 1 on 03/10/2022 by Liang Marshall MD at OR [facility] Right: Eye BAUSCH & LOMB 08/13/2023 [id number] / [id number] / [id number] Envista Intraocular Lens Implanted:Qty: 1 on 03/24/2022 by Liang Marshall MD at OR [facility] Left: Eye BAUSCH & LOMB 07/13/2024 [id number] / [id number] / [id number] documented as of this encounter Visit Diagnoses Diagnosis Chronic atrial fibrillation (HCC)- Primary Atrial fibrillation documented in this encounter Advance Directives Documents on File Type Date Recorded Patient Data Conversion Analyst Expl anation POLST 01/26/2021 [place] OR [facility] FOR LIFE-SUSTAINING TREATMENT * No Code [...] Power of Attor andrew? No Care Teams Blow Molding Machine Operator Relationship Specialty Start Date End Date Jocelyne Desai DO [address] [place] [address] [place] [address] PCP - General Internal Medicine 11/09/16 documented as of this encounter
--- OUTSIDE RECORDS SUMMARY | 2023-08-01 09:31 | External Medical Summary ---
Author Name Unknown Address Unknown Organization K01:LABORATORY [facility] - [address] [place] [address] Laboratory Report Ordering Provider Test Date Status KUSHAL DOUGHERTY 07/18/2023 13:34:21 Final Observation Date Value Abnormality Reference (Units ) Status Albumin 07/18/2023 13:34:21 3.9 3.8-5.0 (g /dL) Final Performing Location [facility]ORY [facility] - [address] [place] [address]
--- OUTSIDE RECORDS SUMMARY | 2023-08-01 09:31 | External Medical Summary ---
Author Name Unknown Address Unknown Organization K01:LABORATORY [facility] - [address] [place] [address] Laboratory Report Ordering Provider Test Date Status KUSHAL DOUGHERTY 07/18/2023 13:34:21 Final Deficient: <20 ng/mL
Ins ufficient: 20-29 ng/mL
Recommended/Optimum:30-50 ng/mL

Vitamin D intoxication is rare. If suspicious of Vitamin D toxicity, evaluation of serum Calcium and PTH is recommended. Observation Date Value Abnormality Reference (Units ) Status 25-OH Vitamin D total 07/18/2023 13:34:21 48 >19 (ng/mL) Final Performing Location LABORATORY [facility] - [address] [place] [address]
--- OUTSIDE RECORDS SUMMARY | 2023-08-01 09:31 | External Medical Summary | Summary of Care ---
Author Name Unknown Organization [facility] Address [address] [facility] [place] [address] Phone [phone] Care Team Providers Care Shop Helper Name Role Phone Jocelyne Desai Primary Care Provider + [phone] Reason for Visit * Reason Comments Outpatient Testing Encounter Details Date Type Department Care Team (Late st Contact Info) Description 07/17/2023 1:00 PM EDT Laboratory Laboratory [address] [place] [phone] [address] [place] [address] Chronic atrial fibrillation (HCC) Allergies No known [...] be different from the original. Good connectivity [facility] for wound care [phone] Televideo if needed. 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 He has significant history DM and PVD and recommended he still follow up with podiatry,. Letter in chart from [facility] podiatry they were unable to [...] ICD-10 update of inactive term PLATT RESEARCH OTHER*[id number] 02/20/2007 ADVANCE DIRECTIVE INFORMATION 01/19/2005 Overview: Yes, [...] [place] office early next week will need [facility] provider recheck Multiple and open [...] 11/17/19 23 LUMBAGO 12/24/2002 05/09/2007 LOC PRIM [id number] 12/24/200208/13 DEGENERATIVE SKIN DISORD 12/24/2002 VERTEBRAL FX [...] MCG/0.3 mL, 12 YRS AND ABOVE, IM ([facility]) 11/16/2022 Covid-19, Mrna, Lnp-s, Pf, B ivalent, [...] AM EDT Anticoagulation Pharmacy Call Center [address] [facility] [place] [address] [facility] 58 60 [facility] [place] [address] 08/31/2023 1:00 PM EDT Office Visit Family Medicine [address] [place] [phone] Savanna Al PA-C [address] [place] [address] [place] [address] 11/20/2023 2:00 PM EDT Office Visit Nephrology [address] [place] [address] Marycarmen Kowalski PA-C 200 [facility] [place] [address] 02/20/2024 12:30 PM EST Nurse Only Ancillary [address] [place] [address] [place], Nurse Annual [address] [place] [address] 03/08/2024 2:30 PM EST Office Visit Family Medicine [address] [place] [phone] Jocelyne Desai[address] [place] [address] Pending Results Name Type Priority Associated Diagnoses Date /Time PT INR Lab Routine Chronic atrial fibrillation (HCC) 07/17/2023 2:04 PM EDT Scheduled Procedures Name Priority Associated [...] Screening 02/17/2024 02/16/2023 CKD PHOS USE SMARTSET 39250 07/02/202406/14, 11/16/2022, 09/29/2021, Additional history exists CKD HGB USE SMARTSET 45840 07/06/202407/06, 07/03/2023, 07/03/2023, Additional history exists DTaP,Tdap,and [...] this encounter Medical Devices Implanted Type Area Parts Puller Device Identifier Shelf Expiration Date Model / Serial / Lot Shaft Fibula 6cm [id number] - [id number] Implanted:Qty: 1 on 09/05/2008 [place] [facility] [place] Tissue - Human N/A: Spine Cervical MUSCULOSKELETAL TRANSPLANT FND 04/20/2010 [id number] / [id number] / Stent Eso Gw 22x70 26222-748 - [id number] Implanted:Qty: 1 on 01/21/2008 at [place] [facility] N/A: Esophagus ALVEOLUS INC 04/12/2009 79389-029 / / [id number] Depuy Uniplate 32 Implanted:Qty: 1 on 09/05/2008 at [place] [facility] N/A: Spine Cervical TAMMY & TAMMY DEPUY 1897-02-302 / / Depuy Uniplate Screw 14mm Implanted:Qty: 2 on 09/05/2008 at [place] [facility] N/A: Spine Cervical TAMMY & TAMMY DEPUY 1897-06-017 / / Depuy Lordotic Bengal Cage Implanted:Qty: 1 on 05/07/2010 at [place] [facility] N/A: Neck 1773-06-146 / 1773-06-146 / Plate Zach 3 Level Ti 54mm - [id number] Implanted:Qty: 1 on 05/07/2010 at [place] [facility] N/A: Neck JNJ : DEPUY SPINE [id number] / / Screw Zach Const St Ti 14mm - [id number] Implanted:Qty: 4 on 05/07/2010 at [place] [facility] N/A: Neck JNJ : DEPUY SPINE [id number] 14 / / Screw 3.5x14 Mntr Fa [id number] - [id number] Implanted:Qty: 8 on 05/07/2010 at [place] [facility] N/A: Spine Cervical JNJ : ETHICON CARDIOVATIONS [id number] / / Jarrell [id number] - [id number] Implanted:Qty: 1 on 05/07/2010 at [place] [facility] N/A: Spine Cervical JNJ : ETHICON CARDIOVATIONS [id number] / / Screw Inner Mntr [id number] - [id number] Implanted:Qty: 8 on 05/07/2010 at [place] [facility] N/A: Spine Cervical JNJ : ETHICON CARDIOVATIONS [id number] / / Envista Intraocular Lens Implanted:Qty: 1 on 03/10/2022 by Liang Marshall MD at OR [facility] Right: Eye BAUSCH & LOMB 08/13/2023 [id number] / [id number] / [id number] Envista Intraocular Lens Implanted:Qty: 1 on 03/24/2022 by Liang Marshall MD at OR [facility] Left: Eye BAUSCH & LOMB 07/13/2024 [id number] / [id number] / [id number] documented as of this encounter Visit Diagnoses Diagnosis Chronic atrial fibrillation (HCC) Atrial fibrillation documented in this encounter Advance Directives Documents on File Type Date Recorded Patient Nursing Coordinator Expl anation POLST 01/26/2021 [place] OR [facility] FOR LIFE-SUSTAINING TREATMENT * No Code [...] Power of Attor andrew? No Care Teams Shop Helper Relationship Specialty Start Date End Date Jocelyne Desai DO [address] [place] [address] [place] [address] PCP - General Internal Medicine 11/09/16 documented as of this encounter
--- OUTSIDE RECORDS SUMMARY | 2023-08-01 09:31 | External Medical Summary ---
Author Name Unknown Address Unknown Organization K01:LABORATORY [facility] - [address] [facility] [address] Laboratory Report Ordering Provider Test Date Status KUSHAL DOUGHERTY 07/18/2023 13:34:21 Final Observation Date Value Abnormality Reference (Units ) Status Color of Urine by Auto 07/18/2023 13:34:21 Yellow Colorless, Light Yellow, Yellow, Dark Yellow Final Clarity, Urine 07/18/2023 13:34:21 Clear Clear Final Glucose [Mass/volume] in Urine by Automated test strip 07/18/2023 13:34:21 Negative Negative (mg/dL) Final Bilirubin.total [Presence] in Urine by Automated test strip 07/18/2023 13:34:21 Negative Negative Final Ketones [Mass/volume] in Urine by Automated test strip 07/18/2023 13:34:21 Negative Negative (mg/dL) Final Specific gravity, Urine 07/18/2023 13:34:21 1.014 1.003-1.030 Final Hemoglobin [Presence] in Urine by Automated test strip 07/18/2023 13:34:21 Negative Negative Final pH, Urine 07/18/2023 13:34:21 6.0 5.0-7.5 (Units) Final Protein [Mass/volume] in Urine by Automated test strip 07/18/2023 13:34:21 30 Abnormal Negative (mg/dL) Final Urobilinogen [Mass/volume] in Urine by Automated test strip 07/18/2023 13:34:21 Normal Normal (mg/dL) Final Nitrite [Presence] in Urine by Automated test strip 07/18/2023 13:34:21 Negative Negative Final Leukocyte esterase [Presence] in Urine by Automated test strip 07/18/2023 13:34:21 Moderate Abnormal Negative Final RBC, Urine 07/18/2023 13:34:21 3-5 Abnormal 0-2 (/HPF) Final WBC, Urine 07/18/2023 13:34:21 10-19 Abnormal 0-2 (/HPF) Final Bacteria [#/area] in Urine sediment by Microscopy high power field 07/18/2023 13:34:21 26-50 Abnormal 0-25 (/HPF) Final Calcium oxalate crystals [#/area] in Urine sediment by Microscopy high power field 07/18/2023 13:34:21 10-19 Abnormal None (/HPF) Final Hyaline casts, Urine 07/18/2023 13:34:21 5-9 Abnormal None (/LPF) Final Transitional cells [#/area] in Urine sediment by Microscopy high power field 07/18/2023 13:34:21 1-4 Abnormal None (/HPF) Final Performing Location LABORATORY [facility] - [address] [facility] [address]
--- OUTSIDE RECORDS SUMMARY | 2023-08-01 09:31 | External Medical Summary ---
Author Name Unknown Address Unknown Organization K01:LABORATORY [facility] - [address] [place] [address] Laboratory Report Ordering Provider Test Date Status KUSHAL DOUGHERTY 07/18/2023 13:34:21 Final Observation Date Value Abnormality Reference (Units ) Status Parathyrin.intact [Mass/volume] in Serum or Plasma 07/18/2023 13:34:21 280 Above high normal 15-65 (pg/mL) Final Performing Location LABORATORY [facility] - [address] [place] [address]
--- OUTSIDE RECORDS SUMMARY | 2023-08-01 09:31 | External Medical Summary ---
Author Name Unknown Address Unknown Organization K01:[facility] - [address] [place] [address] Laboratory Report Ordering Provider Test Date Status KUSHAL DOUGHERTY 07/18/2023 13:34:21 Final Observation Date Value Abnormality Reference (Units ) Status Iron 07/18/2023 13:34:21 30 Below low normal 45-176 (ug/dL) Final Iron-binding capacity 07/18/2023 13:34:21 270 250-425 (ug/dL) Final Transferrin Sat % 07/18/2023 13:34:21 11 Below low normal 15-55 (%) Final Performing Location [facility] - [address] [place] [address]
--- OUTSIDE RECORDS SUMMARY | 2023-08-01 09:31 | External Medical Summary ---
Author Name Unknown Address Unknown Organization K01:[facility] - [address] [place] [address] Laboratory Report Ordering Provider Test Date Status KUSHAL DOUGHERTY 07/18/2023 13:34:21 Final Observation Date Value Abnormality Reference (Units ) Status Phosphate 07/18/2023 13:34:21 3.8 2.5-4.8 (m g/dL) Final Performing Location [facility] - [address] [place] [address]
--- OUTSIDE RECORDS SUMMARY | 2023-08-01 09:32 | External Medical Summary | Summary of Care ---
Author Name Unknown Organization [facility] Address [address] [facility] [place] [address] Phone [phone] Care Team Providers Care Decision Support Manager Name Role Phone Jocelyne Desai DO Primary Care Provider Reason for Visit * Reason Onset Date Comments Home Health 07/11/2023 Encounter Details Date Type Department Care Team (Late st Contact Info) Description 07/11/2023 Telephone Family Medicine [address] [address] Jocelyne Desai DO [address] [place] [address] [place] [address] Home Health Allergies No known active allergiesdocumented as of this encounter (statuses as of 07/13/2023) Medications Medication Sig Dispensed Refills Start Date [...] as of this encounter (statuses as of 07/13/2023) Active Problems Patient Care Coordination No te Formatting of this note migh t be different from the original. Good connectivity [facility] for wound care [phone] Televideo if needed. 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 He has significant history DM and PVD and recommended he still follow up with podiatry,. Letter in chart from [facility] podiatry they were unable to get [...] ICD-10 update of inactive term PLATT RESEARCH OTHER*[id number] 02/20/2007 ADVANCE DIRECTIVE INFORMATION 01/19/2005 Overview: Yes, Patient instructed to provide copy of advance directive for provider to review and to be scanned into Electronic Medical Record No, Advance Directive brochure given to patient at prior appointment. SPINAL STENOSIS-LUMBAR 09/23/2002 Vitamin D deficiency Cervical spinal stenosis documented as of this encounter (statuses as of 07/13/2023) Resolved Problems Problem Noted Date Diagnosed Date Resolved Date Depression, unspecified 11/09/2021 03/2 Depression, unspecified 11/09/202105/2022 Cellulitis of right leg 07/13/202105/2022 Last Assessment & Plan: Suspect this could be early/localized. Will treat with 7 days antibiotic. If pt cannot be reassess by Dr. Braxton office early next week will need [facility] provider recheck Multiple and open wound [...] 11/17/19 23 LUMBAGO 12/24/2002 05/09/2007 LOC PRIM [id number] 12/24/200208/13 DEGENERATIVE SKIN DISORD 12/24/2002 VERTEBRAL FX [...] as of this encounter (statuses as of 07/13/2023) Immunizations Name Administration Dates Next Due COVID-19 mRNA, LNP-s, No Pre serve, 2-Dose Series (Moderna) 03/19/2020 COVID-19 mRNA, LNP-s, No Pre serve, 2-Dose Series (Pfizer) 02/16/2021,04/09/2020,03/19/2020 COVID-19, MRNA-LNP, 23-24, P F, 30 MCG/0.3 mL, 12 YRS AND ABOVE, IM ([facility]) 11/16/2022 Covid-19, Mrna, Lnp-s, Pf, B ivalent, [...] - 07/12/2023 2:25 PM EDT HH Concerns Rae RN, Calling from: [facility] Report/Concerns of: Medication Related Symptoms: none Narrative: Start of care completed for patient yesterday. She wanted to make sure to call as when she was entering patients medications into their system a drug interaction between Aspirin and Coumadin popped up, makes the blood thin. Call back KWAME Lucia with advice or orders at [phone] Please fax orders to [facility] [phone]. FYI. * Telephone Encounter - Jocelyne Desai DO - 07/11/2023 4:25 PM EDT Noted. * Telephone Encounter - Mimi Dawson LPN - 07/11/2023 3:16 PM EDT HH Admission/Start of Care Admission/Start of Care: KWAME Luica, Calling from: [facility] [place] Patient was Admitted to: [facility] , for: Cellulitis to right leg along with blisters/ Sepsis. Referral ordered by: environmental health safety manager Referral received for: Correction Planned start of care date:Yes, Date 07/11/23 [...] KWAME Lucia with advice or orders at [phone] Please fax orders to [facility] [phone]. FYI. documented in this encounter Plan of Treatment Upcoming Encounters Date Type Department Care Team (Latest Contact Info) Description 07/13/2023 5:30 PM EDT Anticoagulation Pharmacy Call Center 58[address]60 [facility] [place] [address] [facility] 58 60 [facility] [place] [address] Chronic atrial fibrillation (HCC)* 07/17/2023 1:00 PM EDT Laboratory Laboratory [address] [place] [phone] [facility] [address] [place] [address] 07/17/2023 1:20 PM EDT Office Visit Family Medicine [address] [place] [phone] Kalie Almonte MD [address] [place] [address] [place] [address] 07/18/2023 6:15 AM EDT Anticoagulation Pharmacy Call Center [address] [facility] [place] [address] Ccp, [facility] 58 60 [facility] [place] [address] 11/20/2023 2:00 PM EDT Office Visit Nephrology [address] [place] [address] Zemaitis, Marycarmen Dill PA-C [address] [facility] [address] 02/20/2024 12:30 PM EST Nurse Only Ancillary [address] [place] [address] [place], Nurse Annual Wellness [address] [place] [address] [place] [address] Scheduled Procedures Name Priority Associated Diagnoses Date/Ti [...] Screening 02/17/2024 02/16/2023 CKD PHOS USE SMARTSET 31336 07/02/202406/14, 11/16/2022, 09/29/2021, Additional history exists CKD HGB USE SMARTSET 24604 07/06/202407/06, 07/03/2023, 07/03/2023, Additional history exists DTaP,Tdap,and [...] this encounter Medical Devices Implanted Type Area Patternmaker Plaster And Plastic Device Identifier Shelf Expiration Date Model / Serial / Lot Shaft Fibula 6cm [id number] - [id number] Implanted:Qty: 1 on 09/05/2008 at [place] [facility] Tissue - Human N/A: Spine Cervical MUSCULOSKELETAL TRANSPLANT FND 04/20/2010 [id number] / [id number] 0P / Stent Eso Gw 22x70 77326-868 - [id number] Implanted:Qty: 1 on 01/21/2008 at [place] [facility] N/A: Esophagus AL[employer]US INC 04/12/2009 06420-396 / / [id number] Depuy Uniplate 32 Implanted:Qty: 1 on 09/05/2008 at [place] [facility] N/A: Spine Cervical TAMMY & TAMMY DEPUY 1897--302 / / Depuy Uniplate Screw 14mm Implanted:Qty: 2 on 09/05/2008 at [place] [facility] N/A: Spine Cervical TAMMY & TAMMY DEPUY 189--017 / / Depuy Lordotic Bengal Cage Implanted:Qty: 1 on 05/07/2010 at [place] [facility] N/A: Neck 1773-06-146 / 1773-06-146 / Plate Zach 3 Level Ti 54mm - [id number] Implanted:Qty: 1 on 05/07/2010 at [place] [facility] N/A: Neck JNJ : DEPUY SPINE [id number] 54 / / Screw Zach Const St Ti 14mm - [id number] Implanted:Qty: 4 on 05/07/2010 at OR [facility] N/A: Neck JNJ : DEPUY SPINE [id number] 14 / / Screw 3.5x14 Mntr Fa [id number] - [id number] Implanted:Qty: 8 on 05/07/2010 at [place] [facility] N/A: Spine Cervical JNJ : ETHICON CARDIOVATIONS [id number] / / Jarrell [id number] - [id number] Implanted:Qty: 1 on 05/07/2010 at [place] [facility] N/A: Spine Cervical JNJ : ETHICON CARDIOVATIONS [id number] / / Screw Inner Mntr [id number] - [id number] Implanted:Qty: 8 on 05/07/2010 at [place] [facility] N/A: Spine Cervical JNJ : ETHICON CARDIOVATIONS [id number] / / Envista Intraocular Lens Implanted:Qty: 1 on 03/10/2022 by Liang Marshall MD at OR [facility] Right: Eye BAUSCH & LOMB 08/13/2023 [id number] / [id number] / [id number] Envista Intraocular Lens Implanted:Qty: 1 on 03/24/2022 by Liang Marshall MD at OR [facility] Left: Eye BAUSCH & LOMB 07/13/2024 [id number] / [id number] / [id number] documented as of this encounter Advance Directives Documents on File Type Date Recorded Patient Staff Midwife Expl anation POLST 01/26/2021 [place] OR [facility] FOR LIFE-SUSTAINING TREATMENT [...] Power of Attor andrew? No Care Teams Decision Support Manager Relationship Specialty Start Date End Date DesaiJocelyne victor DO [address] [place] [address] [place] [phone] PCP - General Internal Medicine 11/09/16 documented as of this encounter
--- OUTSIDE RECORDS SUMMARY | 2023-08-01 09:32 | External Medical Summary | Summary of Care ---
Author Name Unknown Organization [facility] Address [address] [facility] [place] [address] Phone [phone] Care Team Providers Care Appeals Assistant Name Role Phone Jocelyne Desai DO Primary Care Provider Reason for Visit * Reason Onset Date Comments Encounter Created in Error 07/12/2023 Encounter Details Date Type Department Care Team (Late st Contact Info) Description 07/12/2023 Telephone Family Medicine [address] [phone] Jocelyne Desai DO [address] [place] [address] [place] [address] Encounter Created in Error Allergies No known active allergiesdocumented as of this encounter (statuses as of 07/12/2023) Medications Medication Sig Dispensed Refills Start Date [...] as of this encounter (statuses as of 07/12/2023) Active Problems Patient Care Coordination No te Formatting of this note migh t be different from the original. Good connectivity [facility] for wound care [phone] Televideo if needed. Problem Noted Date Diagnosed Date MRSA (methicillin resistant Staphylococcus aureu s) 06/30/2023 Orthostatic hypotension 06/30/2023 Pressure injury of buttock, stage 2 06/30/2023 Full code status 06/28/2023 Calculus of gallbladder with out cholecystitis without obstruction 06/28/2023 Stasis ulcer 06/28/2023 History of [place] (myocardial infarction) 11/09/2021 Trigger [...] 11/27/2018 H/O gastric bypass 11/27/2018 Overview: RYGB [facility] current use of 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 1 Status [...] ICD-10 update of inactive term PLATT RESEARCH OTHER*[id number] 02/20/2007 ADVANCE DIRECTIVE INFORMATION 01/19/2005 Overview: Yes, Patient instructed to provide copy of advance directive for provider to review and to be scanned into Electronic Medical Record No, Advance Directive brochure given to patient at prior appointment. SPINAL STENOSIS-LUMBAR 09/23/2002 Vitamin D deficiency Cervical spinal stenosis documented as of this encounter (statuses as of 07/12/2023) Resolved Problems Problem Noted Date Diagnosed Date [...] 11/17/19 23 LUMBAGO 12/24/2002 05/09/2007 LOC PRIM [id number] 12/24/200208/13 DEGENERATIVE SKIN DISORD 12/24/2002 VERTEBRAL FX [...] as of this encounter (statuses as of 07/12/2023) Immunizations Name Administration Dates Next Due COVID-19 mRNA, LNP-s, No Pre serve, 2-Dose Series (Moderna) 03/19/2020 COVID-19 mRNA, LNP-s, No Pre serve, 2-Dose Series (Pfizer) 02/16/2021,04/09/2020,03/19/2020 COVID-19, MRNA-LNP, 23-24, P F, 30 MCG/0.3 mL, 12 YRS AND ABOVE, IM (Optimus3-[facility]) 11/16/2022 Covid-19, Mrna, Lnp-s, Pf, B [...] Care Team (Late st Contact Info) Description 07/13/2023 5:30 PM EDT Anticoagulation Pharmacy Call Center 58[address] [facility] [place] [address] [facility] 58 60 [facility] [place] [address] 07/17/2023 1:20 PM EDT Office Visit Family Medicine [address] [place] [phone] Kalie Almonte MD [address] [place] [address] [place] [address] 11/20/2023 2:00 PM EDT Office Visit Nephrology [address] [place] [address] ZemaMarycarmen lindsey PA-C [address] [place] [address] 02/20/2024 12:30 PM EST Nurse Only Ancillary [address] [place] [address] Marleeey, Nurse Annual Wellness [address] [place] [address] [place] [address] Scheduled Procedures Name Priority Associated Diagnoses Date/Ti [...] Screening 02/17/2024 02/16/2023 CKD PHOS USE SMARTSET 06625 07/02/202406/14, 11/16/2022, 09/29/2021, Additional history exists CKD HGB USE SMARTSET 29533 07/06/202407/06, 07/03/2023, 07/03/2023, Additional history exists DTaP,Tdap,and [...] this encounter Medical Devices Implanted Type Area Equalizing Saw Operator Device Identifier Shelf Expiration Date Model / Serial / Lot Shaft Fibula 6cm 635588 - [id number] Implanted:Qty: 1 on 09/05/2008 at [place] [facility] Tissue - Human N/A: Spine Cervical MUSCULOSKELETAL TRANSPLANT FND 04/20/2010 [id number] / [id number] 0P / Stent Eso Gw 22x70 [id number] - [id number] Implanted:Qty: 1 on 01/21/2008 at [place] [facility] N/A: Esophagus AL[employer]OLUS INC 04/12/2009 74681-860 / / [id number] Depuy Uniplate 32 Implanted:Qty: 1 on 09/05/2008 [...] Plate Zach 3 Level Ti 54mm - [id number] Implanted:Qty: 1 on 05/07/2010 at [place] [facility] N/A: Neck JNJ : DEPUY SPINE [id number] 54 / / Screw Zach Const St Ti 14mm - [id number] Implanted:Qty: 4 on 05/07/2010 at [place] [facility] N/A: Neck JNJ : DEPUY SPINE [id number] 14 / / Screw 3.5x14 Mntr Fa [id number] - [id number] Implanted:Qty: 8 on 05/07/2010 at [place] [facility] N/A: Spine Cervical JNJ : ETHICON CARDIOVATIONS [id number] / / Jarrell [id number] - [id number] Implanted:Qty: 1 on 05/07/2010 at [place] [facility] N/A: Spine Cervical JNJ : ETHICON CARDIOVATIONS [id number] / / Screw Inner Mn [id number] - [id number] Implanted:Qty: 8 on 05/07/2010 at [place] [facility] N/A: Spine Cervical JNJ : ETHICON CARDIOVATIONS [id number] / / Envista Intraocular Lens Implanted:Qty: 1 on 03/10/2022 by Liang Marshall MD at OR [facility] Right: Eye BAUSCH & LOMB 08/13/2023 [id number] / [id number] / [id number] Envista Intraocular Lens Implanted:Qty: 1 on 03/24/2022 by Liang Marshall MD at OR [facility] Left: Eye BAUSCH & LOMB 07/13/2024 [id number] / [id number] / [id number] documented as of this encounter Advance Directives Documents on File Type Date Recorded 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 No Care Teams Appeals Assistant Relationship Specialty Start Date End Date Jocelyne Desai DO [address] [place] [address] [place] [address] PCP - General Internal Medicine 11/09/16 documented as of this encounter
--- OUTSIDE RECORDS SUMMARY | 2023-08-01 09:32 | External Medical Summary | Summary of Care ---
Author Name Unknown Organization [facility] Address [address] [facility] [place] [address] Phone [phone] Care Team Providers Care Sas Developer Name Role Phone Jocelyne Desai DO Primary Care Provider Reason for Visit * Reason Onset Date Comments Home Health 07/11/2023 Encounter Details Date Type Department Care Team (Late st Contact Info) Description 07/11/2023 Telephone Family Medicine [address] [place] [address] Jocelyne Desai DO [address] [place] [address] [place] [address] Home Health Allergies No [...] [facility] for wound care [phone] Televideo if needed. 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 He has significant history DM and PVD and recommended he still follow up with podiatry,. Letter in chart from [facility] podiatry they were unable to [...] ICD-10 update of inactive term PLATT RESEARCH OTHER*[id number] 02/20/2007 ADVANCE DIRECTIVE INFORMATION 01/19/2005 Overview: Yes, [...] [facility] office early next week will need [facility] provider recheck Multiple and open wound [...] 11/17/19 23 LUMBAGO 12/24/2002 05/09/2007 LOC PRIM [id number] 12/24/200208/13 DEGENERATIVE SKIN DISORD 12/24/2002 VERTEBRAL FX [...] MCG/0.3 mL, 12 YRS AND ABOVE, IM ([facility] 11/16/2022 Covid-19, Mrna, Lnp-s, Pf, B ivalent, [...] encounter Miscellaneous Notes * Telephone Encounter - Zahra Morillo LPN - 07/12/2023 2:25 PM EDT HH Concerns Rea PUENTE, Calling from: [facility] Report/Concerns of: Medication Related Symptoms: none Narrative: Start of care completed for patient yesterday. She wanted to make sure to call as when she was entering patients medications into their system a drug interaction between Aspirin and Coumadin popped up, makes the blood thin. Call back KWAME Lucia with advice or orders at [phone] Please fax orders to [facility] [phone]. FYI. * Telephone Encounter - Jocelyne Desai DO - 07/11/2023 4:25 PM EDT Noted. * Telephone Encounter - Mimi Dawson LPN - 07/11/2023 3:16 PM EDT HH Admission/Start of Care Admission/Start of Care: KWAME Lucia, Calling from: [facility] Patient was Admitted to: [facility] , for: Cellulitis to right leg along with blisters/ Sepsis. Referral ordered by: clinical product manager Referral received for: [facility] Planned start of care date:Yes, Date 07/11/23 [...] KWAME [place] with advice or orders at [phone] Please fax orders to [facility] [phone]. FYI. documented in this encounter Plan of Treatment Upcoming Encounters Date Type Department Care Team (Late st Contact Info) Description 07/13/2023 5:30 PM EDT Anticoagulation Pharmacy [place] [facility] [address]60 [facility] [place] [address] [facility] 58 60 [facility] [place] [address] 07/17/2023 1:20 PM EDT Office Visit Family Medicine [address] [place] [phone] Kalie Almonte MD [address] [place] [address] [place] [address] 11/20/2023 2:00 PM EDT Office Visit Nephrology [address] [place] [address] ZeMarycarmen alan PA-C [address] [place] [address] 02/20/2024 12:30 PM EST Nurse Only Ancillary [address] [place] [address] [place], Nurse [address] [place] [address] Scheduled Procedures Name Priority Associated Diagnoses Date/Ti [...] Screening 02/17/2024 02/16/2023 CKD PHOS USE SMARTSET 26423 07/02/202406/14, 11/16/2022, 09/29/2021, Additional history exists CKD HGB USE SMARTSET 71672 07/06/202407/06, 07/03/2023, 07/03/2023, Additional history exists DTaP,Tdap,and [...] this encounter Medical Devices Implanted Type Area Diamond Grader Device Identifier Shelf Expiration Date Model / Serial / Lot Shaft Fibula 6cm 110344 - [id number] Implanted:Qty: 1 on 09/05/2008 at [place] [facility] Tissue - Human N/A: Spine Cervical MUSCULOSKELETAL TRANSPLANT FND 04/20/2010 [id number] / [id number] 0P / Stent Eso Gw 22x70 13417-624 - [id number] Implanted:Qty: 1 on 01/21/2008 at OR [facility] N/A: Esophagus ALVEOLUS INC 04/12/2009 22205-621 / / [id number] Depuy Uniplate 32 Implanted:Qty: 1 on 09/05/2008 at OR [facility] N/A: Spine Cervical TAMMY & TAMMY DEPUY 1897--302 / / Depuy Uniplate Screw 14mm Implanted:Qty: 2 on 09/05/2008 at OR [facility] N/A: Spine Cervical TAMMY & TAMMY DEPUY 1897--017 / / Depuy Lordotic Bengal Cage Implanted:Qty: 1 on 05/07/2010 at OR [facility] N/A: Neck 1773-06-146 / 1773-06-146 / Plate Zach 3 Level Ti 54mm - [id number] Implanted:Qty: 1 on 05/07/2010 at OR [facility] N/A: Neck JNJ : DEPUY SPINE [id number] 54 / / Screw Zach Const St Ti 14mm - [id number] Implanted:Qty: 4 on 05/07/2010 at OR [facility] N/A: Neck JNJ : DEPUY SPINE [id number] 14 / / Screw 3.5x14 Mntr Fa [id number] - [id number] Implanted:Qty: 8 on 05/07/2010 at OR [facility] N/A: Spine Cervical JNJ : ETHICON CARDIOVATIONS [id number] / / Jarrell [id number] - [id number] Implanted:Qty: 1 on 05/07/2010 at OR [facility] N/A: Spine Cervical JNJ : ETHICON CARDIOVATIONS [id number] / / Screw Inner Mntr [id number] - [id number] Implanted:Qty: 8 on 05/07/2010 at OR [facility] N/A: Spine Cervical JNJ : ETHICON CARDIOVATIONS [id number] / / Envista Intraocular Lens Implanted:Qty: 1 on 03/10/2022 by Liang Marshall MD at OR [facility] Right: Eye BAUSCH & LOMB 08/13/2023 [id number] / [id number] / [id number] Envista Intraocular Lens Implanted:Qty: 1 on 03/24/2022 by Liang Marshall MD at OR [facility] Left: Eye BAUSCH & LOMB 07/13/2024 [id number] / [id number] / [id number] documented as of this encounter Advance Directives Documents on File Type Date Recorded 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 No Care Teams Sas Developer Relationship Specialty Start Date End Date Jocelyne Desai DO [address] [place] [address] [place] [address] PCP - General Internal Medicine 11/09/16 documented as of this encounter
--- OUTSIDE RECORDS SUMMARY | 2023-08-01 09:32 | External Medical Summary | Summary of Care ---
Author Name Unknown Organization [facility] Address [address] [facility] [place] [address] Phone [phone] Care Team Providers Care Cotton Farmer Name Role Phone Desai Jocelyne Briggs DO Primary Care Provider + [phone] Reason for Visit * Reason Comments Dosage Adjustment Via Phone (anticoag Cl inic) Encounter Details Date Type Department Care Team (Latest Contact Info) Description 07/13/2023 5:30 PM EDT Anticoagulation Pharmacy Call Center [address] [facility] [address] [facility] 58 60 [place] [address] Chronic atrial fibrillation (HCC)* Allergies No known [...] connectivity [facility] for wound care [phone] Televideo if needed. Problem Noted Date Diagnosed [...] up with podiatry,. Letter in chart from [facility] podiatry they were unable to [...] ICD-10 update of inactive term PLATT RESEARCH OTHER*[id number] 02/20/2007 ADVANCE DIRECTIVE INFORMATION 01/19/2005 Overview: Yes, [...] [place] office early next week will need [facility] provider recheck Multiple and open wound of [...] 11/17/19 23 LUMBAGO 12/24/2002 05/09/2007 LOC PRIM [id number] 12/24/200208/13 DEGENERATIVE SKIN DISORD 12/24/2002 VERTEBRAL FX [...] MCG/0.3 mL, 12 YRS AND ABOVE, IM ([employer] 11/16/2022 Covid-19, Mrna, Lnp-s, Pf, B ivalent, [...] Progress Notes * Sofie Danielle RPh - 07/13/2023 2:30 PM EDT Medication Therapy Disease Management - Anticoagulation Patient: Lg Colby Radhagagandeep | : 1950 Subjective Contacts Type Contact Phone/Fax 07/13/2023 03:15 PM EDT Phone (Outgoing) Lg Cooley "Akshat" (Self) [phone] (H) Patient-Reported Symptoms: Patient Findings Positives: Change in diet/appetite (starting to eat better; appetite coming back), Other complaints(lost about 50 pounds) Negatives: Signs/symptoms of bleeding, Change in health, Upcoming invasive procedure, Missed doses,Extra doses, Change in medications, Bruising Comments: SNF D/C 07/08/23 Objective Current Warfarin Dose As of 07/13/2023 Warfarin maintenance plan: 3 mg (3 mg x 1) every Sun, Tue, Mariel; 1.5 mg (3 mg x 0.5) all other days INR Result As of 07/13/2023 INR goal: 2.0-3.0 INR used for dosing: No new INR was available at the time of this encounter. Assessment & Plan Warfarin Plan As of 07/13/2023 Full warfarin instructions: 3 mg every Sun, Tue, Mariel; 1.5 mg all other days No change documented: Sofie Danielle RPh Next INR check: 07/17/2023 Repeat PT/INR in 4 day(s) -- at OV Weekly dose: not changed Additional Dosing Information: Description [facility] Nurses -- Mondays and Fridays ; fax - [phone] ([facility]) Sofie Danielle [facility], located within [facility] Clinical Pharmacist 07/13/2023, 2:30 PM Electronically signed by Sofie Danielle [facility] located [facility] at 07/13/2023 3:21 PM EDT * Korin Meléndez photovoltaic installer - 07/13/2023 1:58 PM EDT Pt was discharged from [facility] on 07/08/23.Is being seen by [facility]. Please advise. Thank you, Korin Meléndez Ring Maker [facility] [phone] 07/13/2023,1:58 PM documented in this encounter Plan of Treatment Upcoming Encounters Date Type Department Care Team (Late st Contact Info) Description 07/17/2023 1:00 PM EDT Laboratory Laboratory [address] [place] [phone] [place] [address] 07/17/2023 1:20 PM EDT Office Visit Family Medicine [address] [place] [phone] Kalie Almonte MD [address] [place] [address] [place] [address] 07/18/2023 6:15 AM EDT Anticoagulation Pharmacy Call Center [address] Public [place] [address] [facility] 58 60 [facility] [place] [address] 11/20/2023 2:00 PM EDT Office Visit Nephrology [address] [place] [address] Marycarmen Kowalski PA-C [address] [place], [place] [address] 02/20/2024 12:30 PM EST Nurse Only Ancillary Reyna Gong[address] [place] [address] [place], Nurse [address] [place] [address] Scheduled Procedures Name Priority Associated Diagnoses Date/Ti [...] Screening 02/17/2024 02/16/2023 CKD PHOS USE SMARTSET 16688 07/02/202406/14, 11/16/2022, 09/29/2021, Additional history exists CKD HGB USE SMARTSET 98229 07/06/202407/06, 07/03/2023, 07/03/2023, Additional history exists DTaP,Tdap,and [...] this encounter Medical Devices Implanted Type Area Travel Clerk Device Identifier Shelf Expiration Date Model / Serial / Lot Shaft Fibula 6cm [id number] - [id number] Implanted:Qty: 1 on 09/05/2008 at [place] [facility] [place] Tissue - Human N/A: Spine Cervical MUSCULOSKELETAL TRANSPLANT FND 04/20/2010 [id number] / [id number] 0P / Stent Eso Gw 22x70 [id number] - [id number] Implanted:Qty: 1 on 01/21/2008 at OR [facility] [place] N/A: Esophagus [employer] 04/12/2009 83408-210 / / [id number] Depuy Uniplate 32 Implanted:Qty: 1 on 09/05/2008 [facility] [place] N/A: Neck 1773-06-146 / 1773-06-146 / Plate Zach 3 Level Ti 54mm - [id number] Implanted:Qty: 1 on 05/07/2010 at OR [facility] [place] N/A: Neck JNJ : DEPUY SPINE [id number] / / Screw Zach Const St Ti 14mm - [id number] Implanted:Qty: 4 on 05/07/2010 at OR [facility] [place] N/A: Neck JNJ : DEPUY SPINE [id number] / / Screw 3.5x14 Mntr Fa [id number] - [id number] Implanted:Qty: 8 on 05/07/2010 at OR [facility] [place] N/A: Spine Cervical JNJ : ETHICON [employer]ATIONS [id number] / / Jarrell [id number] - [id number] Implanted:Qty: 1 on 05/07/2010 at OR [facility] [place] N/A: Spine Cervical JNJ : ETHICON CARDIOVATIONS [id number] / / Screw Inner Mntr [id number] - [id number] Implanted:Qty: 8 on 05/07/2010 at OR [facility] [place] N/A: Spine Cervical JNJ : ETHICON CARDIOVATIONS [id number] / / Envista Intraocular Lens Implanted:Qty: 1 on 03/10/2022 by Liang Marshall MD at OR [facility] Right: Eye BAUSCH & LOMB 08/13/2023 [id number] / [id number] / [id number] Envista Intraocular Lens Implanted:Qty: 1 on 03/24/2022 by Liang Marshall MD at OR [facility] Left: Eye BAUSCH & LOMB 07/13/2024 [id number] / [id number] / [id number] documented as of this encounter Visit Diagnoses Diagnosis Chronic atrial fibrillation (HCC)- Primary Atrial fibrillation documented in this encounter Advance Directives Documents on File Type Date Recorded Patient Pinion And Wheel Truer Expl srinivas ARREOLA 01/26/2021 [place] OR [facility] FOR LIFE-SUSTAINING TREATMENT * No Code [...] Power of Attor andrew? No Care Teams Cotton Farmer Relationship Specialty Start Date End Date Jocelyne Desai DO [address] [place] [address] [place] [address] PCP - General Internal Medicine 11/09/16 documented as of this encounter
--- OUTSIDE RECORDS SUMMARY | 2023-08-01 09:32 | External Medical Summary | Summary of Care ---
Author Name Unknown Organization [facility] Address [address] [place] [address] Phone [phone] Care Team Providers Care Regrinder Name Role Phone Jocelyne Desai Primary Care Provider [phone] Reason for Visit * Reason Onset Date Comments Other 07/17/2023 Order Request 07/17/2023 Encounter Details Date Type Department Care Team (Late st Contact Info) Description 07/17/2023 Telephone Nephrology [address] [place] [address] Services, Scheduling [address] [place] [address] Other; Order Request Allergies No known active [...] connectivity [facility] for wound care [phone] Televideo if needed. Problem Noted Date Diagnosed Date MRSA (methicillin resistant Staphylococcus aureu s) 06/30/2023 Orthostatic hypotension 06/30/2023 Pressure injury of buttock, stage 2 06/30/2023 Full code status 06/28/2023 Calculus of gallbladder with out cholecystitis without obstruction 06/28/2023 Stasis ulcer 06/28/2023 History of [place] (myocardial infarction) 11/09/2021 Trigger [...] 11/27/2018 H/O gastric bypass 11/27/2018 Overview: RYGB snf current use of 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 1 Status [...] ICD-10 update of inactive term PLATT RESEARCH OTHER*[id number] 02/20/2007 ADVANCE DIRECTIVE INFORMATION 01/19/2005 Overview: Yes, [...] [place] office early next week will need [facility] provider recheck Multiple and open wound of [...] 11/17/19 23 LUMBAGO 12/24/2002 05/09/2007 LOC PRIM [id number] 12/24/200208/13 DEGENERATIVE SKIN DISORD 12/24/2002 VERTEBRAL FX [...] mRNA, LNP-s, No Pre serve, 2-Dose Series ([employer]) 02/16/2021,04/09/2020,03/19/2020 COVID-19, MRNA-LNP, 23-24, P F, 30 MCG/0.3 mL, 12 YRS AND ABOVE, IM ([employer]) 11/16/2022 Covid-19, Mrna, Lnp-s, Pf, B ivalent, [...] Miscellaneous Notes * Telephone Encounter - Alyx Marroquin OSA - 07/17/2023 12:28 PM EDT Good afternoon, Pt on the line stating he was discharged from [facility] and he wanted to know if [...] Description 07/17/2023 1:00 PM EDT Laboratory Laboratory [address] [place] [phone] [facility] [address] [place] [address] 07/17/2023 1:20 PM EDT Office Visit Family Medicine [address] [place] [phone] Kalie Almonte MD [address] [place] [address] [place] [address] 07/18/2023 6:15 AM EDT Anticoagulation Pharmacy Call Center WB [address] [facility] [place] [address] [facility] 58 60 [facility] [place] [address] 11/20/2023 2:00 PM EDT Office Visit Nephrology [address] [place] [address] Marycarmen Kowalski PA-C [address] [place] [address] 02/20/2024 12:30 PM EST Nurse Only Ancillary [address] [place] [address] [place], Nurse Annual [address] [place] [address] Scheduled Procedures Name Priority Associated Diagnoses Date/Ti [...] Screening 02/17/2024 02/16/2023 CKD PHOS USE SMARTSET 08643 07/02/202406/14, 11/16/2022, 09/29/2021, Additional history exists CKD HGB USE SMARTSET 70492 07/06/202407/06, 07/03/2023, 07/03/2023, Additional history exists DTaP,Tdap,and [...] this encounter Medical Devices Implanted Type Area Aircraft Mechanic Device Identifier Shelf Expiration Date Model / Serial / Lot Shaft Fibula 6cm [id number] - [id number] Implanted:Qty: 1 on 09/05/2008 at [place] [facility] [place] Tissue - Human N/A: Spine Cervical MUSCULOSKELETAL TRANSPLANT FND 04/20/2010 [id number] / [id number] 0P / Stent Eso Gw 22x70 23326-424 - [id number] Implanted:Qty: 1 on 01/21/2008 at OR [facility] [place] N/A: Esophagus [employer] INC 04/12/2009 76790-955 / / [id number] Depuy Uniplate 32 Implanted:Qty: 1 on 09/05/2008 at OR [facility] [place] N/A: Spine Cervical TAMMY & TAMMY DEPUY [id number] / / Depuy Uniplate Screw 14mm Implanted:Qty: 2 on 09/05/2008 at OR [facility] [place] N/A: Spine Cervical TAMMY & TAMMY DEPUY 18908-18-017 / / Depuy Lordotic Bengal Cage Implanted:Qty: 1 on 05/07/2010 at OR [facility] [place] N/A: Neck 1773-06-146 / [id number] / Plate Zach 3 Level Ti 54mm - [id number] Implanted:Qty: 1 on 05/07/2010 at OR [facility] N/A: Neck JNJ : DEPUY SPINE [id number] 54 / / Screw Zach Const St Ti 14mm - [id number] Implanted:Qty: 4 on 05/07/2010 at OR [facility] N/A: Neck JNJ : DEPUY SPINE [id number] 14 / / Screw 3.5x14 Mntr Fa [id number] - [id number] Implanted:Qty: 8 on 05/07/2010 at [place] [facility] [place] N/A: Spine Cervical JNJ : ETHICON CARDIOVATIONS [id number] / / Jarrell [id number] - [id number] Implanted:Qty: 1 on 05/07/2010 at [place] [facility] [place] N/A: Spine Cervical JNJ : ETHICON CARDIOVATIONS [id number] / / Screw Inner Mntr [id number] - [id number] Implanted:Qty: 8 on 05/07/2010 at [place] [facility] [place] N/A: Spine Cervical JNJ : ETHICON CARDI[employer]ATIONS [id number] / / Envista Intraocular Lens Implanted:Qty: 1 on 03/10/2022 by Liang Marshall MD at OR [facility] Right: Eye BAUSCH & LOMB 08/13/2023 [id number] / [id number] / [id number] Envista Intraocular Lens Implanted:Qty: 1 on 03/24/2022 by Liang Marshall MD at OR [facility] Left: Eye BAUSCH & LOMB 07/13/2024 [id number] / [id number] / [id number] documented as of this encounter Advance Directives Documents on File Type Date Recorded Patient Runner Man Expl anation POLST 01/26/2021 [place] OR [facility]-SUSTAINING TREATMENT * No Code (Latest [...] Power of Attor andrew? No Care Teams Regrinder Relationship Specialty Start Date End Date Jocelyne Desai DO [address] [place] [address] [place] [address] PCP - General Internal Medicine 11/09/16 documented as of this encounter
--- OUTSIDE RECORDS SUMMARY | 2023-08-01 09:32 | External Medical Summary | Summary of Care ---
Author Name Unknown Organization [facility] Address [address] [facility] [place] [address] Phone [phone] Care Team Providers Care Package Checker Name Role Phone Jocelyne Desai DO Primary Care Provider + [phone] Encounter Details Date Type Department Care Team (Late st Contact Info) Description 07/15/2023 Result Scan Unspecified Department <No scans attached> [...] be different from the original. Good connectivity [facility] for wound care [phone] Televideo if needed. 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 He has significant history DM and PVD and recommended he still follow up with podiatry,. 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 1 Status [...] ICD-10 update of inactive term PLATT RESEARCH OTHER*[id number] 02/20/2007 ADVANCE DIRECTIVE INFORMATION 01/19/2005 Overview: Yes, [...] [place] office early next week will need [facility] provider recheck Multiple and open wound [...] 11/17/19 23 LUMBAGO 12/24/2002 05/09/2007 LOC PRIM [id number] 12/24/200208/13 DEGENERATIVE SKIN DISORD 12/24/2002 VERTEBRAL FX [...] Description 07/17/2023 1:00 PM EDT Laboratory Laboratory [address] [place] [phone] [address] [place] [address] 07/17/2023 1:20 PM EDT Office Visit Family Medicine [address] [place] [phone] Kalie Almonte MD [address] [place] [address] [place] [address] 07/18/2023 6:15 AM EDT Anticoagulation Pharmacy Call Center [address] [facility] [place] [address] [facility] 58 60 [facility] [place] [address] 11/20/2023 2:00 PM EDT Office Visit Nephrology [address] [place] [address] ZeMarycarmen alan PA-C [address] [place] [address] 02/20/2024 12:30 PM EST Nurse Only Ancillary [address] [place] [address] [place], Nurse Annual [address] [place] [address] Scheduled Procedures Name Priority Associated Diagnoses Date/Ti [...] Screening 02/17/2024 02/16/2023 CKD PHOS USE SMARTSET 86748 07/02/202406/14, 11/16/2022, 09/29/2021, Additional history exists CKD HGB USE SMARTSET 68049 07/06/202407/06, 07/03/2023, 07/03/2023, Additional history exists DTaP,Tdap,and [...] this encounter Medical Devices Implanted Type Area Media Services Specialist Device Identifier Shelf Expiration Date Model / Serial / Lot Shaft Fibula 6cm [id number] - [id number] Implanted:Qty: 1 on 09/05/2008 at [place] [facility] [place] Tissue - Human N/A: Spine Cervical MUSCULOSKELETAL TRANSPLANT FND 04/20/2010 [id number] / [id number] 0P / Stent Eso Gw 22x70 [id number] - [id number] Implanted:Qty: 1 on 01/21/2008 at OR [facility] N/A: Esophagus AL[employer]US INC 04/12/2009 80027-036 / / [id number] Depuy Uniplate 32 Implanted:Qty: 1 on 09/05/2008 at OR [facility] N/A: Spine Cervical TAMMY & TAMMY DEPUY 1897--302 / / Depuy Uniplate Screw 14mm Implanted:Qty: 2 on 09/05/2008 at OR [facility] N/A: Spine Cervical TAMMY & TAMMY DEPUY 1897--017 / / Depuy Lordotic Bengal Cage Implanted:Qty: 1 on 05/07/2010 at OR [facility] [place] N/A: Neck 1773-06-146 / 1773-06-146 / Plate Zach 3 Level Ti 54mm - [id number] Implanted:Qty: 1 on 05/07/2010 at OR [facility] N/A: Neck JNJ : DEPUY SPINE [id number] / / Screw Zach Const St Ti 14mm - [id number] Implanted:Qty: 4 on 05/07/2010 at OR [facility] N/A: Neck JNJ : DEPUY SPINE [id number] 14 / / Screw 3.5x14 Mntr Fa [id number] - [id number] Implanted:Qty: 8 on 05/07/2010 at OR [facility] N/A: Spine Cervical JNJ : ETHICON CARDIOVATIONS [id number] / / Jarrell [id number] - [id number] Implanted:Qty: 1 on 05/07/2010 at OR [facility] N/A: Spine Cervical JNJ : ETHICON CARDIOVATIONS [id number] / / Screw Inner Mntr [id number] - [id number] Implanted:Qty: 8 on 05/07/2010 at OR [facility] N/A: Spine Cervical JNJ : ETHICON CARDIOVATIONS [id number] / / Envista Intraocular Lens Implanted:Qty: 1 on 03/10/2022 by Liang Marshall MD at OR [facility] Right: Eye BAUSCH & LOMB 08/13/2023 [id number] / [id number] / [id number] Envista Intraocular Lens Implanted:Qty: 1 on 03/24/2022 by Liang Marshall MD at OR [facility] Left: Eye BAUSCH & LOMB 07/13/2024 [id number] / [id number] / [id number] documented as of this encounter Procedures Procedure Name Priority Date/Time Associated Diagnosis Comments RADIOLOGY SCANNED RESULT 07/15/2023 documented in this encounter Results * RADIOLOGY SCANNED RESULT (07/15/2023) 07/15/2023 No Physician Data Unknown DIAGNOSTIC RAD IOLOGY SERVICES documented in this encounter Advance Directives Documents on File Type Date Recorded Patient Podiatric Assistant Expl anation POLST 01/26/2021 [place] OR [facility] FOR LIFE-SUSTAINING TREATMENT * No [...] Power of Attor andrew? No Care Teams Package Checker Relationship Specialty Start Date End Date Jocelyne Desai DO [address] [place] [address] [place] [address] PCP - General Internal Medicine 11/09/16 documented as of this encounter
--- OUTSIDE RECORDS SUMMARY | 2023-08-01 09:32 | External Medical Summary ---
Author Name Unknown Address Unknown Organization K01:[facility] [place] [address] [place] [address] Laboratory Report Ordering Provider Test Date Status DONNELL PRIETO 07/17/2023 14:04:16 Final Please draw PT/INR every 1-4 weeks or as requested by the [facility] Cou[facility]

Warfarin Therapy
INR: 2.0-3.0 conventional anticoagulation
INR: 2.5-3.5 high intensity anticoagulation Observation Date Value Abnormality Reference (Units ) Status PT 07/17/2023 14:04:16 25.3 Above high normal 11 .6-15.2 (seconds) Final INR 07/17/2023 14:04:16 2.3 Above high normal 0. 8-1.2 Final Performing Location [facility] - [address] [place] [address]
--- OUTSIDE RECORDS SUMMARY | 2023-08-01 09:33 | External Medical Summary | Summary of Care ---
Author Name Unknown Organization [facility] Address [address] [facility] [place] [address] Phone [phone] Care Team Providers Care Process Operator Name Role Phone Jocelyne Desai DO Primary Care Provider Reason for Visit * Reason Onset Date Comments Home Health 07/11/2023 Encounter Details Date Type Department Care Team (Late st Contact Info) Description 07/11/2023 Telephone Family Medicine [address] [place] [address] Jocelyne Desai DO [address] [place] [address] [place] [address] Home Health Allergies No known active allergiesdocumented as of this encounter (statuses as of 07/11/2023) Medications Medication Sig Dispensed Refills Start Date [...] as of this encounter (statuses as of 07/11/2023) Active Problems Patient Care Coordination No te Formatting of this note migh t be different from the original. Good connectivity [facility] for wound care [phone] Televideo if needed. 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 He has significant history DM and PVD and recommended he still follow up with podiatry,. Letter in chart from [facility] podiatry they were unable to get [...] ICD-10 update of inactive term PLATT RESEARCH OTHER*[id number] 02/20/2007 ADVANCE DIRECTIVE INFORMATION 01/19/2005 Overview: Yes, Patient instructed to provide copy of advance directive for provider to review and to be scanned into Electronic Medical Record No, Advance Directive brochure given to patient at prior appointment. SPINAL STENOSIS-LUMBAR 09/23/2002 Vitamin D deficiency Cervical spinal stenosis documented as of this encounter (statuses as of 07/11/2023) Resolved Problems Problem Noted Date Diagnosed Date Resolved Date Depression, unspecified 11/09/2021 03/2 Depression, unspecified 11/09/202105/2022 Cellulitis of right leg 07/13/202105/2022 Last Assessment & Plan: Suspect this could be early/localized. Will treat with 7 days antibiotic. If pt cannot be reassess by Dr. Braxton office early next week will need [facility] provider recheck Multiple and open [...] 11/17/19 23 LUMBAGO 12/24/2002 05/09/2007 LOC PRIM [id number] 12/24/200208/13 DEGENERATIVE SKIN DISORD 12/24/2002 VERTEBRAL FX [...] as of this encounter (statuses as of 07/11/2023) Immunizations Name Administration Dates Next Due COVID-19 mRNA, LNP-s, No Pre serve, 2-Dose Series (Moderna) 03/19/2020 COVID-19 mRNA, LNP-s, No Pre serve, 2-Dose Series (Pfizer) 02/16/2021,04/09/2020,03/19/2020 COVID-19, MRNA-LNP, 23-24, P F, 30 MCG/0.3 mL, 12 YRS AND ABOVE, IM ([facility] 11/16/2022 Covid-19, Mrna, Lnp-s, Pf, B ivalent, [...] Dawson LPN - 07/11/2023 3:16 PM EDT Admission/Start of Care Admission/Start of Care: KWAME Lucia, [facility] Patient [facility] Ad[facility]: [facility] , for: Cellulitis to right leg along with blisters/ Sepsis. Referral ordered by: manager technology Referral received for: Halfway Planned start of care date:Yes, Date 07/11/23 [...] KWAME Lucia with advice or orders at [phone] Please fax orders to [facility] [phone]. FYI. documented in this encounter Plan of Treatment Upcoming Encounters Date Type Department Care Team (Late st Contact Info) Description 07/13/2023 5:30 PM EDT Anticoagulation Pharmacy Call Center 58[address]60 [facility] [place] [address] [facility]ps, [facility] 58 60 [facility] [place] [address] 07/17/2023 1:20 PM EDT Office Visit Family Medicine [address] [place] [phone] Kalie Almonte MD [address] [place] [address] [place] [address] 11/20/2023 2:00 PM EDT Office Visit Nephrology [address] [place] [address] ZemaMarycarmen lindsey PA-C [address] [facility] [place] [address] 02/20/2024 12:30 PM EST Nurse Only Ancillary [address] [place] [address] [place], Nurse [address] [place] [address] Scheduled Procedures Name Priority Associated Diagnoses Date/Ti [...] Screening 02/17/2024 02/16/2023 CKD PHOS USE SMARTSET 87759 07/02/202406/14, 11/16/2022, 09/29/2021, Additional history exists CKD HGB USE SMARTSET 98614 07/06/202407/06, 07/03/2023, 07/03/2023, Additional history exists DTaP,Tdap,and [...] this encounter Medical Devices Implanted Type Area Bar Tender Device Identifier Shelf Expiration Date Model / Serial / Lot Shaft Fibula 6cm 102014 - [id number] Implanted:Qty: 1 on 09/05/2008 at [place] [facility] [place] Tissue - Human N/A: Spine Cervical MUSCULOSKELETAL TRANSPLANT FND 04/20/2010 [id number] / [id number] 0P / Stent Eso Gw 22x70 [id number] - [id number] Implanted:Qty: 1 on 01/21/2008 at OR [facility] [place] N/A: Esophagus ALVEOLUS INC 04/12/2009 38935-757 / / [id number] Depuy Uniplate 32 Implanted:Qty: 1 on 09/05/2008 at [place] [facility] [place] N/A: Spine Cervical TAMMY & TAMMY DEPUY 1897--302 / / Depuy Uniplate Screw 14mm Implanted:Qty: 2 on 09/05/2008 at OR [facility] [place] N/A: Spine Cervical TAMMY & TAMMY DEPUY 1897-017 / / Depuy Lordotic Bengal Cage Implanted:Qty: 1 on 05/07/2010 at OR [facility] [place] N/A: Neck 1773-06-146 / 1773-06-146 / Plate Zach 3 Level Ti 54mm - [id number] Implanted:Qty: 1 on 05/07/2010 at OR [facility] [place] N/A: Neck JNJ : DEPUY SPINE [id number] / / Screw Zach Const St Ti 14mm - [id number] Implanted:Qty: 4 on 05/07/2010 at OR [facility] [place] N/A: Neck JNJ : DEPUY SPINE [id number] 14 / / Screw 3.5x14 Mntr Fa [id number] - [id number] Implanted:Qty: 8 on 05/07/2010 at OR [facility] [place] N/A: Spine Cervical JNJ : ETHICON CARDIOVATIONS [id number] / / Jarrell [id number] - [id number] Implanted:Qty: 1 on 05/07/2010 at OR [facility] [place] N/A: Spine Cervical JNJ : ETHICON CARDIOVATIONS [id number] / / Screw Inner Mntr [id number] - [id number] Implanted:Qty: 8 on 05/07/2010 at OR [facility] [place] N/A: Spine Cervical JNJ : ETHICON CARDIOVATIONS [id number] / / Envista Intraocular Lens Implanted:Qty: 1 on 03/10/2022 by Liang Marshall MD at [place] [facility] Right: Eye BAUSCH & LOMB 08/13/2023 [id number] / [id number] / [id number] Envista Intraocular Lens Implanted:Qty: 1 on 03/24/2022 by Liang Marshall MD at OR [facility] Left: Eye BAUSCH & LOMB 07/13/2024 [id number] / [id number] / [id number] documented as of this encounter Advance Directives Documents on File Type Date Recorded Patient Sap Trainer Expl anation POLST 01/26/2021 [place] OR [facility] FOR LIFE-SUSTAINING [...] Power of Attor andrew? No Care Teams Process Operator Relationship Specialty Start Date End Date Jocelyne Desai DO [address] [place] [address] [place] [phone] PCP - General Internal Medicine 11/09/16 documented as of this encounter
--- OUTSIDE RECORDS SUMMARY | 2023-08-01 09:33 | External Medical Summary | Summary of Care ---
Author Name Unknown Organization [facility] Address [address] [facility] [address] Phone [phone] Care Team Providers Care Hospital Unit Clerk Name Role Phone Desai Jocelyne Briggs DO Primary Care Provider + [phone] Reason for Visit * Reason Comments Dosage Adjustment Via Phone (anticoag Cl inic) Encounter Details Date Type Department Care Team (Latest Contact Info) Description 07/07/2023 5:30 PM EDT Anticoagulation Pharmacy Call Center 58-60 [facility] [place] [address] [facility] 58 60 [place] [address] Chronic atrial fibrillation (HCC)* Allergies No known active allergiesdocumented as of this encounter (statuses as of 07/07/2023) Medications Medication Sig Dispensed Refills Start Date [...] as of this encounter (statuses as of 07/07/2023) Active Problems Patient Care Coordination No te Formatting of this note migh t be different from the original. Good connectivity [facility] for wound care [phone] Televideo if needed. Problem Noted Date Diagnosed [...] up with podiatry,. Letter in chart from [facility] podiatry they were unable to get in [...] ICD-10 update of inactive term PLATT RESEARCH OTHER*[id number] 02/20/2007 ADVANCE DIRECTIVE INFORMATION 01/19/2005 Overview: Yes, Patient instructed to provide copy of advance directive for provider to review and to be scanned into Electronic Medical Record No, Advance Directive brochure given to patient at prior appointment. SPINAL STENOSIS-LUMBAR 09/23/2002 Vitamin D deficiency Cervical spinal stenosis documented as of this encounter (statuses as of 07/07/2023) Resolved Problems Problem Noted Date Diagnosed Date Resolved Date Depression, unspecified 11/09/2021 03/2 Depression, unspecified 11/09/202105/2022 Cellulitis of right leg 07/13/202105/2022 Last Assessment & Plan: Suspect this could be early/localized. Will treat with 7 days antibiotic. If pt cannot be reassess by Dr. Braxton office early next week will need [facility] provider recheck Multiple and open wound [...] 11/17/19 23 LUMBAGO 12/24/2002 05/09/2007 LOC PRIM [id number] 12/24/200208/13 DEGENERATIVE SKIN DISORD 12/24/2002 VERTEBRAL FX [...] as of this encounter (statuses as of 07/07/2023) Immunizations Name Administration Dates Next Due COVID-19 mRNA, LNP-s, No Pre serve, 2-Dose Series (Moderna) 03/19/2020 COVID-19 mRNA, LNP-s, No Pre serve, 2-Dose Series (Pfizer) 02/16/2021,04/09/2020,03/19/2020 COVID-19, MRNA-LNP, 23-24, P F, 30 MCG/0.3 mL, 12 YRS AND ABOVE, IM ([facility] 11/16/2022 Covid-19, Mrna, Lnp-s, Pf, B [...] of this encounter Progress Notes * Estefania Palacios RPh - 07/07/2023 10:48 AM EDT Medication Therapy Disease Management - Anticoagulation Patient: Lg Cooley | : 1950 Subjective Intermediate/SNF Patient Anticoagulation Encounter Patient is a resident at: [facility] -- Fax sent to number listed above detailing plan of care below. Please notify clinic with any unusual brusing or bleeding, N/V/D, medication or diet changes or anymissed or extra doses of Coumadin. Patient-Reported Symptoms: Patient Findings Positives: Change in medications Comments: OK to discontinue Lovenox, INR now in range Objective Current Warfarin Dose As of 07/07/2023 Warfarin maintenance plan: 3 mg (3 mg x 1) every Sun, Tue, Mariel; 1.5 mg (3 mg x 0.5) all other days INR Result As of 07/07/2023 INR goal: 2.0-3.0 INR used for dosin.5 (07/07/2023) Assessment & Plan Warfarin Plan As of 07/07/2023 Full warfarin instructions: 3 mg every Sun, Tue, Mariel; 1.5 mg all other days No change documented: Estefania Palacios qasim Next INR check: 07/13/2023 Repeat PT/INR in 1 week(s) Weekly dose: not changed Additional Dosing Information: Description [facility] Nurses; fax - [phone] ([facility]) Estefania Palacios [facility] Clinical Pharmacist 07/07/2023, 10:51 AM documented in this encounter Plan of Treatment Upcoming Encounters Date Type Department Care Team (Late st Contact Info) Description 07/13/2023 5:30 PM EDT Anticoagulation Pharmacy Call Center 58[address] [facility] [place] [address] Ccp, [facility] 58 60 [facility] [place] [address] 07/17/2023 1:20 PM EDT Office Visit Family Medicine [address] [place] [phone] Kalie Almonte MD [address] [place] [address] [place] [address] 11/20/2023 2:00 PM EDT Office Visit Nephrology [address] [place] [address] Zemaitis, Marycarmen Dill PA-C [address] [facility] [address] 02/20/2024 12:30 PM EST Nurse Only Ancillary [address] [place] [address] [place], Nurse Annual [address] [place] [address] Scheduled Procedures Name Priority Associated Diagnoses Date/Ti [...] Screening 02/17/2024 02/16/2023 CKD PHOS USE SMARTSET 90221 07/02/202406/14, 11/16/2022, 09/29/2021, Additional history exists CKD HGB USE SMARTSET 05445 07/06/202407/06, 07/03/2023, 07/03/2023, Additional history exists DTaP,Tdap,and [...] this encounter Medical Devices Implanted Type Area Furnace Attendant Device Identifier Shelf Expiration Date Model / Serial / Lot Shaft Fibula 6cm [id number] - [id number] [place]ed:Qty: 1 [place]05[place] [facility] [place] Human N/A: Spine Cervical MUSCULOSKELETAL TRANSPLANT FND 04/20/2010 727371 / [id number] 0P / Stent Eso Gw 22x70 64613-314 - [id number] Implanted:Qty: 1 on 01/21/2008 [place] [facility] [place]/A: Esophagus ALVEOLUS INC 04/12/2009 89509-421 / / [id number] Depuy Uniplate 32 Implanted:Qty: 1 on 09/05/2008 [place] [facility] [place]A: Spine Cervical TAMMY & TAMMY DEPUY 302 / / Depuy Uniplate Screw 14mm Implanted:Qty: 2 on 09/05/2008 [place] [facility] [place]/A: Spine Cervical TAMMY & TAMMY DEPUY 017 / / Depuy Lordotic Bengal Cage Implanted:Qty: 1 on 05/07/2010 [place] [facility] [place]/A: Neck 1773-06-146 / 1773-146 / Plate Zach 3 Level Ti 54mm - [id number] Implanted:Qty: 1 on 05/07/2010 [place] [facility] [place]A: Neck JNJ : DEPUY SPINE [id number] 54 / / Screw Zach Const St Ti 14mm - [id number] Implanted:Qty: 4 on 05/07/2010 [place] [facility] [place]A: Neck JNJ : DEPUY SPINE [id number] 14 / / Screw 3.5x14 Mntr Fa [id number] - [id number] Implanted:Qty: 8 on 05/07/2010 [place] [facility] [place]A: Spine Cervical JNJ : ETHICON CARDIOVATIONS [id number] / / Jarrell [id number] - [id number] Implanted:Qty: 1 on 05/07/2010 [place] [facility] [place]/A: Spine Cervical JNJ : ETHICON CARDIOVATIONS [id number] / / Screw Inner Mntr [id number] - [id number] Implanted:Qty: 8 on 05/07/2010 [place] [facility] [place]A: Spine Cervical JNJ : ETHICON CARDIOVATIONS [id number] / / Envista Intraocular Lens Implanted:Qty: 1 on 03/10/2022 by Liang Marshall MD at OR [facility] Right: Eye BAUSCH & LOMB 08/13/2023 [id number] / [id number] / [id number] Envista Intraocular Lens Implanted:Qty: 1 on 03/24/2022 by Liang Marshall MD at OR [facility] Left: Eye BAUSCH & LOMB 07/13/2024 [id number] / [id number] / [id number] documented as of this encounter Visit Diagnoses Diagnosis Chronic atrial fibrillation (HCC)- Primary Atrial fibrillation documented in this encounter Advance Directives Documents on File Type Date Recorded Patient Palm And Back Forger Expl anation POLST 01/26/2021 [place] OR [facility] FOR LIFE-SUSTAINING TREATMENT * [...] Power of Attor andrew? No Care Teams Hospital Unit Clerk Relationship Specialty Start Date End Date Jocelyne Desai DO [address] [place] [address] [place] [address] PCP - General Internal Medicine 11/09/16 documented as of this encounter"
--- OUTSIDE RECORDS SUMMARY | 2023-08-01 09:33 | External Medical Summary | Summary of Care ---
Author Name Unknown Organization [facility] Address [address] [facility] [place] [address] Phone [phone] Care Team Providers Care Boat Carpenter Mechanic Name Role Phone Jocelyne Desai Primary Care Provider + [phone] Encounter Details Date Type Department Care Team (Late st Contact Info) Description 07/06/2023 Orders Only Lab Mobile Phlebotomy [facility] [address] [place] [address] Primitivo Heck MD [address] [place] [address] [place] [address] Anemia*; Chronic kidney disease (CKD); A-fib (HCC) Allergies No known active allergiesdocumented as of this encounter (statuses as of 07/06/2023) Medications Medication Sig Dispensed Refills Start Date [...] as of this encounter (statuses as of 07/06/2023) Active Problems Patient Care Coordination No te Formatting of this note migh t be different from the original. Good connectivity [facility] for wound care [phone] Televideo if needed. Problem Noted Date Diagnosed [...] with podiatry,. 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 SPINAL STENOSIS-LUMBAR 09/23/2002 Vitamin D deficiency Cervical spinal stenosis documented as of this encounter (statuses as of 07/06/2023) Resolved Problems Problem Noted Date Diagnosed Date Resolved Date Depression, unspecified 11/09/2021 03/2 Depression, unspecified 11/09/202105/2022 Cellulitis of right leg 07/13/202105/2022 Last Assessment & Plan: Suspect this could be early/localized. Will treat with 7 days antibiotic. If pt cannot be reassess by Dr. Braxton office early next week will need [facility] provider recheck Multiple and open wound [...] 11/17/19 23 LUMBAGO 12/24/2002 05/09/2007 LOC PRIM [id number] 12/24/200208/13 DEGENERATIVE SKIN DISORD 12/24/2002 VERTEBRAL FX [...] as of this encounter (statuses as of 07/06/2023) Immunizations Name Administration Dates Next Due COVID-19 mRNA, LNP-s, No Pre serve, 2-Dose Series (Moderna) 03/19/2020 COVID-19 mRNA, LNP-s, No Pre serve, 2-Dose Series (Pfizer) 02/16/2021,04/09/2020,03/19/2020 COVID-19, MRNA-LNP, 23-24, P F, 30 MCG/0.3 mL, 12 YRS AND ABOVE, IM ([facility] 11/16/2022 Covid-19, Mrna, Lnp-s, Pf, B [...] Care Team (Late st Contact Info) Description 07/07/2023 5:30 AM EDT Laboratory Lab Mobile Phlebotomy [facility] [address] [place] [address] [place] [address] 07/07/2023 5:30 PM EDT Anticoagulation Pharmacy Call Center 58-60 [facility] [place] [address] Ccps, [facility] 58 60 [facility] [place] [address] 11/20/2023 2:00 PM EDT Office Visit Nephrology [address] [place] [address] ZeMarycarmen alan PA-C 200 [facility] [place] [address] 02/20/2024 12:30 PM EST Nurse Only Ancillary [address] [place] [address] [place], Nurse [address] [place] [address] Scheduled Orders Name Type Priority Associated Diagnoses Orde r Schedule CBC Lab Routine Anemia Chronic kidney disease (CKD) A-fib (HCC) Expected: 07/07/2023, Expires: 07/05/2024 BASIC METABOLIC PANEL Lab Routine Anemia Chronic kidney disease (CKD) A-fib ([facility]) Expected: 07/07/2023, Expires: 07/05/2024 HGB Lab Routine Anemia Chronic kidney disease (CKD) A-fib ([facility]) Expected: 07/07/2023, Expires: 07/05/2024 HCT Lab Routine Anemia Chronic kidney disease (CKD) A-fib ([facility]) Expected: 07/07/2023, Expires: 07/05/2024 PT INR Lab Routine Anemia Chronic kidney disease (CKD) A-fib ([facility]) Expected: 07/07/2023, Expires: 07/05/2024 Scheduled Procedures Name Priority Associated Diagnoses Date/Ti [...] 0 05/05/2021, 11/22/2017, Additional history exists GFR 01/03/2024 07/03/2023, 06/13, 02/23/2023, Additional history exists Depression Screening 02/17/2024 02/16/2023 CKD HGB USE SMARTSET 30651 07/02/202407/02, 07/03/2023, 06/28/2023, Additional history exists CKD PHOS USE SMARTSET 36241 07/02/202406/14, 11/16/2022, 09/29/2021, Additional history exists DTaP,Tdap,and Td Vaccines (3 [...] this encounter Medical Devices Implanted Type Area Oil Paint Shader Device Identifier Shelf Expiration Date Model / Serial / Lot Shaft Fibula 6cm 360011 - [id number] Implanted:Qty: 1 on 09/05/[place] [facility] [place] - Human N/A: Spine Cervical MUSCULOSKELETAL TRANSPLANT FND 04/20/2010 380702 / [id number] 0P / Stent Eso Gw 22x70 [id number] - [id number] Implanted:Qty: 1 on 01/21/2008 [place] [facility] [place] N/A: Esophagus ALVEOLUS INC 04/12/2009 68340-626 / / [id number] Depuy Uniplate 32 Implanted:Qty: 1 on 09/05/2008 [place] [facility] [place] N/A: Spine Cervical TAMMY & TAMMY DEPUY 18908-14-302 / / Depuy Uniplate Screw 14mm Implanted:Qty: 2 on 09/05/2008 [place] [facility] [place] N/A: Spine Cervical TAMMY & TAMMY DEPUY 1896-07-017 / / Depuy Lordotic Bengal Cage Implanted:Qty: 1 on 05/07/2010 [place] [facility] [place] N/A: Neck 1773-06-146 / 1773-06-146 / Plate Zach 3 Level Ti 54mm - [id number] Implanted:Qty: 1 on 05/07/2010 [place] [facility] [place] N/A: Neck JNJ : DEPUY SPINE [id number] 54 / / Screw Zach Const St Ti 14mm - [id number] Implanted:Qty: 4 on 05/07/2010 [place] [facility] [place] N/A: Neck JNJ : DEPUY SPINE [id number] 14 / / Screw 3.5x14 Mntr Fa [id number] - [id number] Implanted:Qty: 8 on 05/07/2010 [place] [facility] [place] N/A: Spine Cervical JNJ : ETHICON CARDIOVATIONS [id number] / / Jarrell 3.0k075ry [id number] - [id number] Implanted:Qty: 1 on 05/07/2010 [place] [facility] [place] N/A: Spine Cervical JNJ : ETHICON CARDIOVATIONS [id number] / / Screw Inner Mntr [id number] - [id number] Implanted:Qty: 8 on 05/07/2010 [place] [facility] [place] N/A: Spine Cervical JNJ : ETHICON CARDIOVATIONS [id number] / / Envista Intraocular Lens Implanted:Qty: 1 on 03/10/2022 by Liang Marshall MD at OR [facility] Right: Eye BAUSCH & LOMB 08/13/2023 [id number] / [id number] / [id number] Envista Intraocular Lens Implanted:Qty: 1 on 03/24/2022 by Liang Marshall MD at OR [facility] Left: Eye BAUSCH & LOMB 07/13/2024 [id number] / [id number] / [id number] documented as of this encounter Visit Diagnoses Diagnosis Anemia- Primary Anemia, unspecified Chronic kidney disease (CKD) Chronic kidney disease, unspecified A-fib (HCC) Atrial fibrillation documented in this encounter Advance Directives Documents on File Type Date Recorded Patient Forming Process Line Worker Expl anation POLST 01/26/2021 [place] [facility] FOR LIFE-SUSTAINING TREATMENT * No [...] Power of Attor andrew? No Care Teams Boat Carpenter Mechanic Relationship Specialty Start Date End Date Jocelyne Desai DO [address] [place] [address] [place] [address] PCP - General Internal Medicine 11/09/16 documented as of this encounter
--- OUTSIDE RECORDS SUMMARY | 2023-08-01 09:33 | External Medical Summary ---
Author Name Unknown Address Unknown Organization [facility] [address] [place] [address] Laboratory Report Ordering Provider Test Date Status MOE LOPEZ 07/07/2023 05:15:00 Final Observation Date Value Abnormality Reference (Units ) Status WBC, Total 07/07/2023 05:15:00 3.60 Below low normal 4. 00-10.80 (K/uL) Final RBC 07/07/2023 05:15:00 3.25 4.50-5.25 (M/uL) Final Hemoglobin 07/07/2023 05:15:00 9.4 Below low normal 14 .0-16.8 (g/dL) Final HCT 07/07/2023 05:15:00 30.0 Below low normal 40. 0-48.4 (%) Final MCV 07/07/2023 05:15:00 92.3 82.0-99.5 (fL) Final MCH 07/07/2023 05:15:00 28.9 27.0-34.0 (pg) Final MCHC 07/07/2023 05:15:00 31.3 32.0-36.0 (g/dL) Final RDW 07/07/2023 05:15:00 14.8 11.5-15.5 (%) Final Platelets 07/07/2023 05:15:00 222 140-400 (K /uL) Final MPV 07/07/2023 05:15:00 11.4 6.6-11.1 ( fL) Final Performing Location LABORATORY [facility] [address] [place] [address]
--- OUTSIDE RECORDS SUMMARY | 2023-08-01 09:33 | External Medical Summary ---
Author Name Unknown Address Unknown Organization K0G:LABORATORY [place] [address] [place] [address] Laboratory Report Ordering Provider Test Date Status MOE LOPEZ 07/07/2023 05:15:00 Final Observation Date Value Abnormality Reference (Units ) Status BUN 07/07/2023 05:15:00 51 Above high normal 6-20 (mg/dL) Final Creatinine 07/07/2023 05:15:00 2.6 Above high normal 0.6-1.2 (mg/dL) Final Glomerular filtration rate/1.73 sq M.predicted [Volume Rate/Area] in Serum, Plasma or Blood by Creatinine-based formula (CKD-EPI) 07/07/2023 05:15:00 26 Below low normal >=60 (mL/min) Final eGFR is calculated based on the CKD-EPI 2020 equation Sodium 07/07/2023 05:15:00 137 135-146 (m mol/L) Final Potassium 07/07/2023 05:15:00 3.8 3.5-5.1 (m mol/L) Final Results rechecked. Cl 07/07/2023 05:15:00 97 Below low normal 98- 107 (mmol/L) Final CO2 07/07/2023 05:15:00 30 22-32 (mmo l/L) Final Anion gap 07/07/2023 05:15:00 10 7-15 (mmol /L) Final Glucose 07/07/2023 05:15:00 117 70-120 (mg /dL) Final Calcium 07/07/2023 05:15:00 8.6 8.4-10.2 ( mg/dL) Final Performing Location LABORATORY [facility] [address] [place] [address]
--- OUTSIDE RECORDS SUMMARY | 2023-08-01 09:33 | External Medical Summary | Summary of Care ---
Author Name Unknown Organization [facility] Address [address] [facility] [place] [address] Phone [phone] Care Team Providers Care Teacher Dramatics Name Role Phone Jocelyne Desai DO Primary Care Provider Reason for Visit * Reason Onset Date Comments Advice 07/06/2023 Encounter Details Date Type Department Care Team (Late st Contact Info) Description 07/06/2023 Telephone Family Medicine [address] [place] [phone] Jocelyne Desai DO [address] [place] [address] [place] [address] Advice Allergies No known [...] be different from the original. Good connectivity [facility] for wound care [phone] Televideo if needed. Problem Noted Date Diagnosed [...] chart from [facility] podiatry they were unable to get in [...] 11/27/2018 H/O gastric bypass 11/27/2018 Overview: RYGB FDC current use of 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 1 Status [...] ICD-10 update of inactive term PLATT RESEARCH OTHER*[id number] 02/20/2007 ADVANCE DIRECTIVE INFORMATION 01/19/2005 Overview: Yes, [...] [place] office early next week will need [facility] provider recheck Multiple and open wound [...] 11/17/19 23 LUMBAGO 12/24/2002 05/09/2007 LOC PRIM [id number] 12/24/200208/13 DEGENERATIVE SKIN DISORD 12/24/2002 VERTEBRAL FX [...] MCG/0.3 mL, 12 YRS AND ABOVE, IM ([facility]) 11/16/2022 Covid-19, Mrna, Lnp-s, Pf, B [...] encounter Miscellaneous Notes * Telephone Encounter - Belen Patino RN - 07/11/2023 9:49 AM EDT Pt has an appt already for 07/17/23 * Telephone Encounter - Halima Shaw OSA - 07/06/2023 11:11 AM EDT No Appointments Available Patient declined appointments?: No What Visit Type is needed? Hospital Discharge If Acute Visit Type is needed, were surrounding clinics offered to patient (Yes/No)? N/A Was patient offered appointments with other available providers (Yes/No)? N/A See Call Details? (Yes or No): No Patient is being Discharged from [facility] documented in this encounter Plan of Treatment Upcoming Encounters Date Type Department Care Team (Late st Contact Info) Description 07/13/2023 5:30 PM EDT Anticoagulation Pharmacy Call Center [facility] [address] [place] [address] [facility] 58 60 [facility] [place] [address] 07/17/2023 1:20 PM EDT Office Visit [address] [phone] Kalie Almonte MD [address] [place] [address] [place] [address] 11/20/2023 2:00 PM EDT Office Visit Nephrology [address] [place] [address] Marycarmen Kowalski PA-C [address] [place] [address] 02/20/2024 12:30 PM EST Nurse Only Ancillary [address] [place] [address] [place], Nurse Annual Wellness [address] [place] [address] [place] [address] Scheduled Procedures Name Priority Associated Diagnoses Date/Ti [...] Screening 02/17/2024 02/16/2023 CKD PHOS USE SMARTSET 33435 07/02/202406/14, 11/16/2022, 09/29/2021, Additional history exists CKD HGB USE SMARTSET 42132 07/06/202407/06, 07/03/2023, 07/03/2023, Additional history exists DTaP,Tdap,and [...] this encounter Medical Devices Implanted Type Area Masticator Device Identifier Shelf Expiration Date Model / Serial / Lot Shaft Fibula 6cm [id number] - [id number] Implanted:Qty: 1 on 09/05/2008 at OR [facility] Tissue - Human N/A: Spine Cervical MUSCULOSKELETAL TRANSPLANT FND 04/20/2010 [id number] / [id number] 0P / Stent Eso Gw 22x70 [id number] - [id number] Implanted:Qty: 1 on 01/21/2008 at OR [facility] N/A: Esophagus [employer] 04/12/2009 59127-651 / / [id number] Depuy Uniplate 32 Implanted:Qty: 1 on 09/05/2008 at OR [facility] N/A: Spine Cervical TAMMY & TAMMY DEPUY 189--[id number] / / Depuy Uniplate Screw 14mm Implanted:Qty: 2 on 09/05/2008 at OR [facility] N/A: Spine Cervical TAMMY & TAMMY DEPUY [id number] / / Depuy Lordotic Bengal Cage Implanted:Qty: 1 on 05/07/2010 at OR [facility] N/A: Neck 1773-06-146 / 1773-06-146 / Plate Zach 3 Level Ti 54mm - [id number] Implanted:Qty: 1 on 05/07/2010 at OR [facility] N/A: Neck JNJ : DEPUY SPINE [id number] / / Screw Zach Const St Ti 14mm - [id number] Implanted:Qty: 4 on 05/07/2010 at OR [facility] N/A: Neck JNJ : DEPUY SPINE [id number] / / Screw 3.5x14 Mntr Fa [id number] - [id number] Implanted:Qty: 8 on 05/07/2010 at OR [facility] N/A: Spine Cervical JNJ : ETH[employer]ON [employer]ATIONS [id number] / / Jarrell [id number] - [id number] Implanted:Qty: 1 on 05/07/2010 at OR [facility] N/A: Spine Cervical JNJ : ETH[employer]ON [employer]ATIONS [id number] / / Screw Inner Mntr [id number] - [id number] Implanted:Qty: 8 on 05/07/2010 at OR [facility] N/A: Spine Cervical JNJ : ETH[employer]ON [employer]ATIONS [id number] / / Envista Intraocular Lens Implanted:Qty: 1 on 03/10/2022 by Liang Marshall MD at OR [facility] Right: Eye BAUSCH & LOMB 08/13/2023 [id number] / [id number] / [id number] Envista Intraocular Lens Implanted:Qty: 1 on 03/24/2022 by Liang Marshall MD at OR [facility] Left: Eye BAUSCH & LOMB 07/13/2024 [id number] / [id number] / [id number] documented as of this encounter Advance Directives Documents on File Type Date Recorded Patient Peoplesoft Analyst Expl srinivas ARREOLA 01/26/2021 [place] [facility] * No Code (Latest [...] Power of Attor andrew? No Care Teams Teacher Dramatics Relationship Specialty Start Date End Date Jocelyne Desai DO [address] [place] [address] [place] [address] PCP - General Internal Medicine 11/09/16 documented as of this encounter
--- OUTSIDE RECORDS SUMMARY | 2023-08-01 09:33 | External Medical Summary | Summary of Care ---
Author Name Unknown Organization [facility] Address [address] [facility] [place] [address] Phone [phone] Care Team Providers Care Shop Girl Name Role Phone Jocelyne Desai DO Primary Care Provider [phone] Reason for Visit * Reason Comments Medication Refill Encounter Details Date Type Department Care Team (Late st Contact Info) Description 07/11/2023 Refill Family Medicine [address] [phone] Jocelyne Desai DO [address] [place] [address] [place] [address] Allergies No known active allergiesdocumented as of [...] different from the original. Good connectivity [facility] for wound care [phone] Televideo if needed. 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 He has significant history DM and PVD and recommended he still follow up with podiatry,. Letter in chart from [facility] podiatry they were unable to [...] ICD-10 update of inactive term PLATT RESEARCH OTHER*[id number] 02/20/2007 ADVANCE DIRECTIVE INFORMATION 01/19/2005 Overview: Yes, [...] 11/17/19 23 LUMBAGO 12/24/2002 05/09/2007 LOC PRIM [id number] 12/24/200208/13 DEGENERATIVE SKIN DISORD 12/24/2002 VERTEBRAL FX [...] mRNA, LNP-s, No Pre serve, 2-Dose Series ([employer]) 02/16/2021,04/09/2020,03/19/2020 COVID-19, MRNA-LNP, 23-24, P F, 30 MCG/0.3 mL, 12 YRS AND ABOVE, IM ([email or web address]) 11/16/2022 Covid-19, Mrna, Lnp-s, Pf, B [...] encounter Miscellaneous Notes * Telephone Encounter - Nicky Marlow RPh - 07/12/2023 1:26 PM EDT Refused Prescriptions: Disp Refills Ozempic (0.25 or 0.5 MG/DOSE) 2 MG/3ML Tameka*9 mL 1 Sig: Inject 0.5 mg under the skin once a weekRefused By: NICKY MARLOW for Refusal: Duplicate Request documented in this encounter Plan of Treatment Upcoming Encounters Date Type Department Care Team (Late st Contact Info) Description 07/13/2023 5:30 PM EDT Anticoagulation Pharmacy Call Center [address] [place] [address] [facility] 58 [address] [facility] [place] [address] 07/17/2023 1:20 PM EDT Office Visit Family Medicine [address] [place] [phone] Kalie Almonte MD [address] [place] [address] [place] [address] 11/20/2023 2:00 PM EDT Office Visit Nephrology [address] [place] [address] Marycarmen Kowalski PA-C [address] [place] [address] 02/20/2024 12:30 PM EST Nurse Only Ancillary [address] [place] [address] [place], Nurse Annual [address] [place] [address] Scheduled Procedures Name Priority Associated Diagnoses Date/Ti [...] Screening 02/17/2024 02/16/2023 CKD PHOS USE SMARTSET 61650 07/02/202406/14, 11/16/2022, 09/29/2021, Additional history exists CKD HGB USE SMARTSET 39598 07/06/202407/06, 07/03/2023, 07/03/2023, Additional history exists DTaP,Tdap,and [...] this encounter Medical Devices Implanted Type Area Cardiopulmonary Technician And Eeg Tech Device Identifier Shelf Expiration Date Model / Serial / Lot Shaft Fibula 6cm [id number] - [id number] Implanted:Qty: 1 on 09/05/2008 at OR [facility] [place] Tissue - Human N/A: Spine Cervical MUSCULOSKELETAL TRANSPLANT FND 04/20/2010 [id number] / [id number] 0P / Stent Eso Gw 22x70 19082-556 - [id number] Implanted:Qty: 1 on 01/21/2008 at OR [facility] [place] N/A: Esophagus [employer]US INC 04/12/2009 82822-307 / / [id number] Depuy Uniplate 32 Implanted:Qty: 1 on 09/05/2008 [...] [place] N/A: Neck 1773-06-146 / 1773-06-146 / Plate Zach 3 Level Ti 54mm - [id number] Implanted:Qty: 1 on 05/07/2010 at OR [facility] [place] N/A: Neck JNJ : DEPUY SPINE [id number] / / Screw Zach Const St Ti 14mm - [id number] Implanted:Qty: 4 on 05/07/2010 at OR [facility] [place] N/A: Neck JNJ : DEPUY SPINE [id number] 14 / / Screw 3.5x14 Mntr Fa [id number] - [id number] Implanted:Qty: 8 on 05/07/2010 at OR [facility] [place] N/A: Spine Cervical JNJ : ETHICON CARDIOVATIONS [id number] / / Jarrell [id number] - [id number] Implanted:Qty: 1 on 05/07/2010 at OR [facility] [place] N/A: Spine Cervical JNJ : ETHICON CARDIOVATIONS [id number] / / Screw Inner Mntr [id number] - [id number] Implanted:Qty: 8 on 05/07/2010 at OR [facility] [place] N/A: Spine Cervical JNJ : ETHICON CARDIOVATIONS [id number] / / Envista Intraocular Lens Implanted:Qty: 1 on 03/10/2022 by Liang Marshall MD at OR [facility] Right: Eye BAUSCH & LOMB 08/13/2023 [id number] / [id number] / [id number] Envista Intraocular Lens Implanted:Qty: 1 on 03/24/2022 by Liang Marshall MD at OR [facility] Left: Eye BAUSCH & LOMB 07/13/2024 [id number] / [id number] / [id number] documented as of this encounter Advance Directives Documents on File Type Date Recorded Patient Research Analyst Expl anation POLST 01/26/2021 [place] OR [facility] FOR LIFE-SUSTAINING [...] of Attor andrew? No Care Teams Shop Girl Relationship Specialty Start Date End Date Jocelyne Desai DO [address] [place] [address] [place] [address] PCP - General Internal Medicine 11/09/16 documented as of this encounter
--- OUTSIDE RECORDS SUMMARY | 2023-08-01 09:33 | External Medical Summary ---
Author Name Unknown Address Unknown Organization K0G:LAB[facility]ORY [facility] [address] [place] [address] Laboratory Report Ordering Provider Test Date Status MOE LOPEZ 07/07/2023 05:15:00 Final Warfarin Therapy
INR: 2 .0-3.0 conventional anticoagulation
INR: 2.5- 3.5 high intensity anticoagulation Observation Date Value Abnormality Reference (Units ) Status PT 07/07/2023 05:15:00 26.8 Above high normal 11 .6-15.2 (seconds) Final INR 07/07/2023 05:15:00 2.5 Above high normal 0. 8-1.2 Final Performing Location LABORATORY [facility] [address] [place] [address]
--- OUTSIDE RECORDS SUMMARY | 2023-08-01 09:34 | External Medical Summary | Summary of Care ---
Author Name Unknown Organization [facility] Address [address] [facility] [address] Phone [phone] Care Team Providers Care Electric Crane Operator Name Role Phone Desai Jocelyne Briggs DO Primary Care Provider [phone] Reason for Visit * Reason Comments Dosage Adjustment Via Phone (anticoag Cl inic) Encounter Details Date Type Department Care Team (Latest Contact Info) Description 07/05/2023 5:30 PM EDT Anticoagulation Pharmacy Call Center [phone] [place] [address] [facility] [address] [place] [address] Chronic atrial fibrillation (HCC)* Allergies No known active allergiesdocumented as of this encounter (statuses as of 07/05/2023) Medications Medication Sig Dispensed Refills Start Date End Date Status ACETAMINOPHEN 500 MG PO TABS 2 tabs every 6 hours as needed for discomfort 4 Active Acetaminophen 325 MG Oral Tablet (Tylenol) Take 2 Tablets by mouth every 4 hours as needed for Fever >38C(100.5F) or Pain, Mild. 4 Active Cyanocobalamin (VITAMIN B-12) 1000 MCG Tablet Take 1 Tablet by mouth every evening. 8 07/05/19 24 Discontinued(Ref ill) Cholecalciferol (VITAMIN D3) 50 MCG (2000 UT) Capsule Take 1 Capsule by mouth every evening. 9 07/05/19 24 Discontinued(Ref ill) Flintstones w/Iron 18 MG Oral Tablet Chewable Take by mouth 1 Tablet every evening . 1 07/05/19 24 Discontinued(Ref ill) Magnesium Oxide 400 MG Oral Capsule Take 1 Cap by mouth 2 times a day. 200 Cap 5 1 07/05/19 24 Discontinued Aspirin 81 MG Oral Tablet Delayed Release Take 1 Tablet by mouth every evening. 07/05/19 24 Discontinued(Ref ill) Tamsulosin HCl 0.4 MG Oral Capsule (Flomax) TAKE 1 CAPSULE BY MOUTH IN THE MORNING 100 Capsule 3 3 07/05/19 24 Discontinued(Ref ill) Metoprolol Succinate ER 25 MG Oral Tablet Extended Release 24 Hour (toPROL XL) Take 1 Tablet by mouth in the morning. 100 Tablet 3 3 07/05/19 24 Discontinued(Ref ill) Warfarin Sodium 3 MG Oral Tablet (Coumadin)Indicat ions:Chronic atrial fibrillation (HCC) TAKE 1 TO 2 TABLETS BY MOUTH DAILY, DIRECTED BY COUMADIN CLINIC 180 Tablet 3 3 07/05/19 24 Discontinued(Med ication List Clean Up) Atorvastatin Calcium 40 MG Oral Tablet (Lipitor) TAKE ONE TABLET BY MOUTH EVERY DAY 100 Tablet 2 4 07/05/19 24 Discontinued(Ref ill) Boost Oral Liquid Take 237 mL by mouth in the morning and 237 mL at noon and 237 mL in the evening. Take before meals. 4 07/05/19 24 Discontinued(Ref ill) Enoxaparin Sodium 60 MG/0.6ML Injection Solution Prefilled Syringe (Lovenox) Inject 90 mg under the skin in the morning and 90 mg before bedtime. 4 07/05/19 24 Discontinued(Med ication List Clean Up) Ozempic (0.25 or 0.5 MG/DOSE) 2 MG/3ML Solution Pen-injector (Semaglutide(0.25 or 0.5MG/DOS)) Inject 0.25 mg under the skin once a week 4 07/05/19 24 Discontinued(Ref ill) Midodrine HCl 2.5 MG Oral Tablet (Proamatine) Take 1 Tablet by mouth in the morning and 1 Tablet at noon and 1 Tablet in the evening. 4 07/05/19 24 Discontinued(Ref ill) Soaanz 40 MG Oral Tablet (Torsemide) Take 1 Tablet by mouth in the morning and 1 Tablet before bedtime. 4 07/05/19 24 Discontinued(Ref ill) Potassium Chloride Candi ER 20 MEQ Oral Tablet Extended Release Take 1 Tablet by mouth in the morning. 4 07/05/19 24 Discontinued(Ref ill) Sennosides-Docusa te Sodium 8.6-50 MG Oral Tablet (Senna S) Take 1 Tablet by mouth in the morning. 07/05/19 24 Discontinued(Ref ill) oxyCODONE HCl 5 MG Oral Tablet (Oxy IR) Take 1 Tablet by mouth every 6 hours as needed for Pain, Moderate or Pain, Severe. 07/05/19 24 Discontinued(Ref ill) Cyclobenzaprine HCl 10 MG Oral Tablet (Flexeril) Take 1 Tablet by mouth every 8 hours as needed for Muscle spasms. 07/05/19 Discontinued(Ref ill) documented as of this encounter (statuses as of 07/05/2023) Active Problems Patient Care Coordination No te Formatting of this note migh t be different from the original. Good connectivity [facility] for wound care [phone] Televideo if needed. Problem Noted Date Diagnosed [...] with podiatry,. Letter in chart from [facility] podiatry they were unable to get [...] ICD-10 update of inactive term PLATT RESEARCH OTHER*[id number] 02/20/2007 ADVANCE DIRECTIVE INFORMATION 01/19/2005 Overview: Yes, Patient instructed to provide copy of advance directive for provider to review and to be scanned into Electronic Medical Record No, Advance Directive brochure given to patient at prior appointment. SPINAL STENOSIS-LUMBAR 09/23/2002 Vitamin D deficiency Cervical spinal stenosis documented as of this encounter (statuses as of 07/05/2023) Resolved Problems Problem Noted Date Diagnosed Date [...] 11/17/19 23 LUMBAGO 12/24/2002 05/09/2007 LOC PRIM [id number] 12/24/200208/13 DEGENERATIVE SKIN DISORD 12/24/2002 VERTEBRAL FX [...] as of this encounter (statuses as of 07/05/2023) Immunizations Name Administration Dates Next Due COVID-19 [...] of this encounter Progress Notes * Estefania Palacios, [facility] - 07/05/2023 12:32 PM EDT Images from the original note were not included. Medication Therapy Disease Management - Anticoagulation Patient: Lg Cooley | : 1950 Mcfp/SNF Patient Anticoagulation Encounter Patient is a resident at: [facility] -- Fax sent to number listed above detailing plan of care below. Please notify clinic with any unusual brusing or bleeding, N/V/D, medication or diet changes or anymissed or extra doses of Coumadin. Subjective Patient-Reported Symptoms: Objective Current Warfarin Dose As of 07/05/2023 Warfarin maintenance plan: 3 mg (3 mg x 1) every Sun, Tue, Mariel; 1.5 mg (3 mg x 0.5) all other days INR Result As of 07/05/2023 INR goal: 2.0-3.0 INR used for dosin.9 (07/05/2023) Assessment & Plan Warfarin Plan As of 07/05/2023 Full warfarin instructions: 07/04: 3 mg plus Lovenox today, then d/c Lovenox ; Otherwise 3 mg every Sun, Tue, Mariel; 1.5 mg all other days Next INR check: 07/07/2023 Repeat PT/INR in 2 day(s) Weekly dose: not changed Additional Dosing Information: Description Continue Lovenox 90mg daily until INR in range [facility] Nurses; fax - [phone] ([facility]) Estefania Palacios [facility] Clinical Pharmacist 07/05/2023, 12:33 PM documented in this encounter Plan of Treatment Upcoming Encounters Date Type Department Care Team (Late st Contact Info) Description 11/20/2023 2:00 PM EDT Office Visit Nephrology [address] [place] [address] ZemaMarycarmen lindsey PA-C [address] [place] [address] [place] [address] 02/20/2024 12:30 PM EST Nurse Only Ancillary [address] [place] [address] [place], Nurse [address] [place] [address] Scheduled Procedures Name Priority Associated Diagnoses Date/Ti [...] Screening 02/17/2024 02/16/2023 CKD HGB USE SMARTSET 87772 07/02/202407/02, 07/03/2023, 06/28/2023, Additional history exists CKD PHOS USE SMARTSET 23873 07/02/202406/14, 11/16/2022, 09/29/2021, Additional history exists DTaP,Tdap,and [...] this encounter Medical Devices Implanted Type Area Assistant Construction Superintendent Device Identifier Shelf Expiration Date Model / Serial / Lot Shaft Fibula 6cm [id number] - [id number] Implanted:Qty: 1 on 09/05/[address] [facility] Tissue - Human N/A: Spine Cervical MUSCULOSKELETAL TRANSPLANT FND 04/20/2010 [id number] / [id number] 0P / Stent Eso Gw 22x70 [id number] - [id number] Implanted:Qty: 1 on 01/21/[address] [facility] N/A: Esophagus [employer] 04/12/2009 [id number] / / [id number] Depuy Uniplate 32 Implanted:Qty: 1 on 09/05/2008 [...] Plate Zach 3 Level Ti 54mm - [id number] Implanted:Qty: 1 on 05/07/[address] [facility] N/A: Neck JNJ : DEPUY SPINE [id number] / / Screw Zach Const St Ti 14mm - [id number] Implanted:Qty: 4 on 05/07/[address] [facility] N/A: Neck JNJ : DEPUY SPINE [id number] / / Screw 3.5x14 Mntr Fa [id number] - [id number] Implanted:Qty: 8 on 05/07/[address] [facility] N/A: Spine Cervical JNJ : ETHICON [employer]ATIONS [id number] / / Jarrell [id number] - [id number] Implanted:Qty: 1 on 05/07/[address] [facility] N/A: Spine Cervical JNJ : ETH[employer]ON [employer]ATIONS [id number] / / Screw Inner Mntr [id number] - [id number] Implanted:Qty: 8 on 05/07/[address] [facility] N/A: Spine Cervical JNJ : ETHICON [employer]ATIONS [id number] / / Envista Intraocular Lens Implanted:Qty: 1 on 03/10/2022 by Liang Marshall MD at [facility] Right: Eye BAUSCH [employer] LOMB 08/13/2023 [id number] / [id number] / [id number] Envista Intraocular Lens Implanted:Qty: 1 on 03/24/2022 by Liang Marshall MD at [facility] Left: Eye BAUSCH & LOMB 07/13/2024 [id number] / [id number] / [id number] documented as of this encounter Visit Diagnoses Diagnosis Chronic atrial fibrillation (HCC)- Primary Atrial fibrillation documented in this encounter Advance Directives Documents on File Type Date Recorded Patient Piecer Up Expl anation POLST 01/26/2021 [place] OR [facility] FOR LIFE-SUSTAINING [...] Power of Attor andrew? No Care Teams Electric Crane Operator Relationship Specialty Start Date End Date Jocelyne Desai DO [address] [place] [address] [place] [address] PCP - General Internal Medicine 11/09/16 documented as of this encounter"
--- OUTSIDE RECORDS SUMMARY | 2023-08-01 09:34 | External Medical Summary | Summary of Care ---
Author Name Unknown Organization [facility] Address [address] [facility] [place] [address] Phone [phone] Care Team Providers Care Regional Planner Name Role Phone Jocelyne Desai Primary Care Provider [phone] Reason for Visit * Reason Onset Date Comments Pacemaker Clinic 07/06/2023 Disconnected mo nitor Encounter Details Date Type Department Care Team (Late st Contact Info) Description 07/06/2023 Telephone Cardiology, [facility] [address] [facility] [address] [place], Pacer Clinic [facility] [address] [place] [address] Pacemaker Clinic (Disconnected monitor ) Allergies No known active allergiesdocumented as of [...] be different from the original. Good connectivity [facility] for wound care [phone] Televideo if needed. Problem Noted Date Diagnosed [...] up with podiatry,. 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 1 [...] ICD-10 update of inactive term PLATT RESEARCH OTHER*[id number] 02/20/2007 ADVANCE DIRECTIVE INFORMATION 01/19/2005 Overview: Yes, [...] [place] office early next week will need [facility] provider recheck Multiple and open wound [...] of left foot with unspecified severity 05/31/2019 100 05/2022 CSA (central sleep apnea) 12/05/2018 [place] [...] 11/17/19 23 LUMBAGO 12/24/2002 05/09/2007 LOC PRIM [id number] 12/24/200208/13 DEGENERATIVE SKIN DISORD 12/24/2002 VERTEBRAL FX [...] MCG/0.3 mL, 12 YRS AND ABOVE, IM (Risk Ident-[facility]) 11/16/2022 Covid-19, Mrna, Lnp-s, Pf, B ivalent, [...] encounter Miscellaneous Notes * Telephone Encounter - Madai Abrams LPN - 07/06/2023 2:35 PM EDT MyG message sent to patient regarding disconnected home monitor documented in this encounter Plan of Treatment Upcoming Encounters Date Type Department Care Team (Late st Contact Info) Description 07/07/2023 5:30 PM EDT [facility] [phone] [facility] [address] [facility] [address] [place] [place] [address] 11/20/2023 2:00 PM EDT Office Visit Nephrology [address] [place] [address] Marycarmen Kowalski PA-C [address] [place] [address] 02/20/2024 12:30 PM EST Nurse Only Ancillary [address] [place] [address] [place], Nurse [address] [place] [address] Scheduled Procedures Name Priority Associated Diagnoses Date/Ti [...] Screening 02/17/2024 02/16/2023 CKD HGB USE SMARTSET 14024 07/02/202407/02, 07/03/2023, 06/28/2023, Additional history exists CKD PHOS USE SMARTSET 46428 07/02/202406/14, 11/16/2022, 09/29/2021, Additional history exists DTaP,Tdap,and [...] this encounter Medical Devices Implanted Type Area Marketing Traffic Coordinator Device Identifier Shelf Expiration Date Model / Serial / Lot Shaft Fibula 6cm [id number] - [id number] Implanted:Qty: 1 on 09/05/2008 at OR [facility] [place] Tissue - Human N/A: Spine Cervical MUSCULOSKELETAL TRANSPLANT FND 04/20/2010 [id number] / [id number] 0P / Stent Eso Gw 22x70 [id number] - [id number] Implanted:Qty: 1 on 01/21/2008 at OR [facility] N/A: Esophagus [employer] 04/12/2009 [id number] / / [id number] Depuy Uniplate 32 Implanted:Qty: 1 on 09/05/2008 at OR [facility] [place] N/A: Spine Cervical TAMMY & TAMMY DEPUY 1897--302 / / Depuy Uniplate Screw 14mm Implanted:Qty: 2 on 09/05/2008 at OR [facility] [place] N/A: Spine Cervical TAMMY & TAMMY DEPUY 1897--017 / / Depuy Lordotic Bengal Cage Implanted:Qty: 1 on 05/07/2010 at OR [facility] N/A: Neck [id number] / [id number] / Plate Zach 3 Level Ti 54mm - [id number] Implanted:Qty: 1 on 05/07/2010 at OR [facility] [place] N/A: Neck JNJ : DEPUY SPINE [id number] / / Screw Zach Const St Ti 14mm - [id number] Implanted:Qty: 4 on 05/07/2010 at OR [facility] N/A: Neck JNJ : DEPUY SPINE [id number] 14 / / Screw 3.5x14 Mntr Fa [id number] - [id number] Implanted:Qty: 8 on 05/07/2010 at OR [facility] [place] N/A: Spine Cervical JNJ : ETHICON CARDIOVATIONS [id number] / / Jarrell [id number] - [id number] Implanted:Qty: 1 on 05/07/2010 at OR [facility] [place] N/A: Spine Cervical JNJ : ETHICON CARDIOVATIONS [id number] / / Screw Inner Mntr [id number] - [id number] Implanted:Qty: 8 on 05/07/2010 at OR [facility] [place] N/A: Spine Cervical JNJ : ETHICON CARDIOVATIONS [id number] / / Envista Intraocular Lens Implanted:Qty: 1 on 03/10/2022 by Liang Marshall MD at OR [facility] Right: Eye BAUSCH & LOMB 08/13/2023 [id number] / [id number] / [id number] Envista Intraocular Lens Implanted:Qty: 1 on 03/24/2022 by Liang Marshall MD at OR [facility] Left: Eye BAUSCH & LOMB 07/13/2024 [id number] / [id number] / [id number] documented as of this encounter Advance Directives Documents on File Type Date Recorded 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 No Care Teams Regional Planner Relationship Specialty Start Date End Date Jocelyne Desai DO [address] [place] [address] [place] [id number] PCP - General Internal Medicine 11/09/16 documented as of this encounter
--- OUTSIDE RECORDS SUMMARY | 2023-08-01 09:34 | External Medical Summary ---
Author Name Unknown Address Unknown Organization K0G:[facility] [address] [place] [address] Laboratory Report Ordering Provider Test Date Status MOE LOPEZ 07/05/2023 05:40:00 Final Warfarin Therapy
INR: 2 .0-3.0 conventional anticoagulation
INR: 2.5- 3.5 high intensity anticoagulation Observation Date Value Abnormality Reference (Units ) Status PT 07/05/2023 05:40:00 21.9 Above high normal 11 .6-15.2 (seconds) Final INR 07/05/2023 05:40:00 1.9 Above high normal 0. 8-1.2 Final Performing Location [facility] [address] [place] [address]
--- OUTSIDE RECORDS SUMMARY | 2023-08-01 09:34 | External Medical Summary | Summary of Care ---
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 Name Role Phone Desai Jocelyne Briggs Primary Care Provider + [phone] Reason for Visit * Reason Onset Date Comments Intermediate Visit - Discharge 07/05/2023 Encounter Details Date Type Department Care Team (Latest Contact Info) Description 07/05/2023 9:00 AM EDT Intermediate Visit [facility] [address] [place] [address] Ryanne Ramos PA-C [address] [place] [address] Cellulitis of right leg*; MRSA infection; Non-pressure chronic ulcer of other part of right foot with unspecified severity (HCC); Venous ulcer of right leg ([facility]); 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 kidney disease ([facility]); Type 2 diabetes, controlled, with peripheral neuropathy ([facility]); Cerebrovascular disease, arteriosclerotic, post-stroke; Chronic atrial fibrillation ([facility]); Cardiac pacemaker in situ; Slow transit constipation Allergies No known active allergiesdocumented as of [...] different from the original. Good connectivity [facility] for wound care [phone] Televideo if needed. Problem Noted Date Diagnosed [...] up with podiatry,. Letter in chart from [facility] podiatry they were unable to [...] 11/27/2018 H/O gastric bypass 11/27/2018 Overview: RYGB assisted current use of 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 1 Status [...] ICD-10 update of inactive term [employer] OTHER*[id number] 02/20/2007 ADVANCE DIRECTIVE INFORMATION 01/19/2005 Overview: Yes, [...] [place] office early next week will need [facility] provider recheck Multiple and open [...] of left foot with unspecified severity 05/31/2019 1005/2022 CSA (central sleep apnea) 12/05/2018 Lopez catheter [...] 11/17/19 23 LUMBAGO 12/24/2002 05/09/2007 LOC PRIM [id number] 12/24/200208/13 DEGENERATIVE SKIN DISORD 12/24/2002 VERTEBRAL FX [...] MCG/0.3 mL, 12 YRS AND ABOVE, IM (iiko-ComirnatecoVent) 11/16/2022 Covid-19, Mrna, Lnp-s, Pf, B ivalent, [...] as of this encounter Progress Notes * Ryanne Ramos PA-C - 07/05/2023 1:58 PM EDT DISCHARGE NOTE TRANSITION EVENT: Type: Discharge to home Date: July 07 Code Status: Full Code Name: Lg Cooley Date of : 1950 This note pertains to care provided at [facility]. Please see facility medical record for original note. This note is not to be edited or addended in [facility]. Editing or addending needs to occur in the facilities medical record. Discharge Medications: Current Outpatient Medications Medication Sig Dispense Refill [...] No current facility-administered medications for this visit. S: Lg Cooley is being discharged from [facility] to home. Note from 06/30/23: Lg Cooley had been admitted to [facility] from [facility] for wound care, PT, and OT. Recently admitted to [facility] on 06/14/23 because of right lower extremity cellulitis and calf wound/right foot wounds and was transferred here and admitted on 06/27/2023. Patient of Dr. Desai with PMH of type 2diabetes mellitus with peripheral vascular disease and stage 3b CKD, chronic atrial fibrillation onCoumadin, hypertension, dyslipidemia, h/o CVA, diabetic neuropathy, venous stasis with edema, h/o gastric bypass, b12 deficiency, paroxysmal SVT, s/p pacemaker, h/o osteomyelitis s/p amputation of right great toe and distal phalanges of right 2nd and 3rd toes, chronic diabetic foot ulcers, MINERVA, anddiastolic CHF who presented to the ED with worsening right lower extremity swelling and redness. Hewas seen by home health for a dressing change 2 days prior to admission. Patient had prior admission to [facility] 05/05-05/25/23 with left lower extremity cellulitis after a fall and developed MRSA at that time. It was also noticed he had JORGE with creatinine of 2.1 that improved to 1.5 on discharge. He also was found to have possible 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 stenosis and recommended to follow-up as outpatient. In the ED on this admission, right lower extremity was swollen and erythematous with wound of rightcalf area as well as chronic right foot ulcers of ball and heel of foot. Once again, he had JORGE with creatinine of 3.16 (baseline of 1.4- 1.7). Venous doppler of RLE was negative for DVT and showed inguinal lymphadenopathy, likely reactive. Renal u/s for JORGE showed no hydronephrosis and mild cortical thinning and race perinephric fluid. Bladder was normal. CT of lower extremity showed marked nonspecific subcutaneous edema of the right calf without organized fluid collection. CT of the right footshowed marked nonspecific subcutaneous edema without evidence of abscess and ulceration overlying the base of the head of the first metatarsal. CXR showed pacemaker and cardiomegaly but no acute disease. WBC was 13.51. Hemoglobin was 10.5. Patient was admitted for treatment of right lower extremity cellulitis and leg and foot wounds. He was seen by ID and wound care. Blood cultures were negative. MRSA culture positive. He was treated with IV Daptomycin and Zosyn. Completed antibiotics prior to discharge. He was seen by nephrology for JORGE. Creatinine climbed during stay and was 5.16 at maximum and improved to 4.22 prior to discharge. He had been diuresed with Lasix for 11 L of fluid removal. He was discharged with torsemide 40 mg twice daily as per nephrology along with potassium supplement. Patient's INR became supratherapeutic and given vitamin K when it was 6. Coumadin was held for several days and then INR was 1.2. His Coumadin was restarted along with Lovenox until INR is therapeutic. Losartan was discontinued due to hypotension/JORGE. He was then started on midodrine 2.5 mg TID for hypotension per nephrology. He is to be on 1500 ml fluid restriction. Patient has been on Ozempic for diabetes. His A1C while admitted was 6.0. His Ozempic was held while admitted. He had been recently increased to 0.5 mg weekly and was discharged on 0.25 mg weekly dose. Patient is now admitted for PT/OT and wound care. He states he has buttocks sores now that developed while admitted. The right leg swelling and redness is much improved. He states he had a large openarea on the right medial calf and it is much smaller now. He also had a large blister of right upper inner thigh that has pealed off and is doing much better. He reports he has some loss of taste since being in the hospital that is starting to come back. He lives at home alone in a house that is split into two apartments and daughter lives upstairs. He denies any chest pain of shortness of breath. Has some mild constipation and prefers to try raisins prior to adding any medication. CBC Results: Results for orders placed or performed in visit on 07/03/23 CBC Result Value Ref Range WBC 3.86 (L) 4.00 - 10.80 K/uL RBC 3.42 4.50 - 5.25 M/uL HGB 9.9 (L) 14.0 - 16.8 g/dL HCT 31.2 (L) 40.0 - 48.4 % MCV 91.2 82.0 - 99.5 fL MCH 28.9 27.0 - 34.0 pg MCHC 31.7 32.0 - 36.0 g/dL RDW 14.5 11.5 - 15.5 % PLT 218 140 - 400 K/uL MPV 11.0 6.6 - 11.1 fL Hemoglobin Results: Lab Results Component Value Date/Time HGB 9.9 (L) 07/03/2023 05:48 AM HGB 9.1 (L) 06/28/2023 06:15 AM HGB 13.6 (L) 01/17/2023 09:04 AM HGB 14.0 10/17/2019 12:25 PM HGB 13.6 (L) 09/18/2019 11:02 AM HGB 14.3 08/13/2019 04:19 PM Basic Panel Results: Results for orders placed or performed in visit on 06/28/23 BASIC METABOLIC PANEL Result Value Ref Range BUN 68 (H) 6 - 20 mg/dL Creatinine 3.0 (H) 0.6 - 1.2 mg/dL Estimated Glomerular Filtration Rate 22 (L) >=60 mL/min Sodium 136 135 - 146 mmol/L Potassium 4.1 3.5 - 5.1 mmol/L Chloride 97 (L) 98 - 107 mmol/L CO2 29 22 - 32 mmol/L Anion Gap 10 7 - 15 mmol/L Glucose 107 70 - 120 mg/dL Calcium 8.6 8.4 - 10.2 mg/dL Creatinine Results: Lab Results Component Value Date/Time CREATININE - [facility] 2.5 (H) 07/03/2023 05:48 AM CREATININE - [facility] 3.0 (H) 06/28/2023 06:15 AM CREATININE - [facility] 1.7 (H) 02/23/2023 04:05 PM CREATININE - [facility] 1.7 (H) 11/18/2019 01:37 PM CREATININE - [facility] 1.6 (H) 10/17/2019 12:25 PM CREATININE - [facility] 1.5 (H) 08/13/2019 04:19 PM CREATININE CLEARANCE - [facility] 142 (H) 04/26/2003 11:05 AM CREATININE, 24 HOUR URINE - [facility] 2.850 (H) 04/26/2003 11:05 AM CREATININE, RANDOM URINE - [facility] 111 11/16/2022 03:20 PM CREATININE, RANDOM URINE - [facility] 96 05/13/2022 02:41 PM CREATININE, RANDOM URINE - [facility] 39 09/29/2021 01:40 PM CREATININE, RANDOM URINE - [facility] 86 10/17/2019 12:25 PM CREATININE, RANDOM URINE - [facility] 59 08/13/2019 04:19 PM CREATININE, RANDOM URINE - [facility] 90 08/30/2018 04:28 PM CREATININE-[facility] 1.48 (A) 04/13/2022 12:00 AM CREATININE-[facility] 1.48 (A) 06/06/2019 12:00 AM CREATININE-[facility] 1.35 05/20/2019 12:00 AM Potassium Results: Lab Results Component Value Date/Time POTASSIUM - [facility] 5.0 07/03/2023 05:48 AM POTASSIUM - [facility] 4.1 06/28/2023 06:15 AM POTASSIUM - [facility] 4.6 02/23/2023 04:05 PM POTASSIUM - [facility] 4.9 11/18/2019 01:37 PM POTASSIUM - [facility] 4.2 10/17/2019 12:25 PM POTASSIUM - [facility] 4.8 08/13/2019 04:19 PM POTASSIUM, WHOLE BLOOD - [facility] 3.7 05/07/2010 02:46 PM POTASSIUM, WHOLE BLOOD - [facility] 3.6 05/07/2010 11:49 AM POTASSIUM-[facility] 4.4 04/13/2022 12:00 AM POTASSIUM-[facility] 4.5 06/06/2019 12:00 AM POTASSIUM-OUTSIDE LAB 4.6 05/20/2019 12:00 AM Sodium Results: Lab Results Component Value Date/Time SODIUM - [facility] 137 07/03/2023 05:48 AM SODIUM - [facility] 136 06/28/2023 06:15 AM SODIUM - [facility] 141 02/23/2023 04:05 PM SODIUM - [facility] 142 11/18/2019 01:37 PM SODIUM - [facility] 141 10/17/2019 12:25 PM SODIUM - [facility] 141 08/13/2019 04:19 PM SODIUM, WHOLE BLOOD - [facility] 139 05/07/2010 02:46 PM SODIUM, WHOLE BLOOD - [facility] 140 05/07/2010 11:49 AM Hemoglobin AIC Results: Lab Results Component Value [...] - [facility] 7.6 (H) 11/09/2022 12:59 PM Has history of : Past Medical History: Diagnosis Date Amputated toe (HCC) 05/06/11 2nd toe right foot- no osteomyelitis Atrial fibrillation (HCC) Atrial fibrillation (HCC) Atrial fibrillation ([facility]) B12 deficiency 12/21/2015 Background diabetic retinopathy(362.01) Cervical spinal stenosis 2007 Cervical spondylosis with myelopathy Cervical spondylosis with myelopathy 2007 Chronic atrial fibrillation (HCC) 01/12/2015 Closed fracture of unspecified part of vertebral column without mention of spinal cord injury 1989 T8 Degeneration of lumbosacral intervertebral disc Degeneration of lumbosacral intervertebral disc Degeneration of thoracic intervertebral disc Degeneration of thoracic intervertebral disc Degenerative skin disorder Necrobiosis lipoidica Depressive disorder, not elsewhere classified Depressive disorder, not elsewhere classified Diabetic foot ulcer (HCC) 04/27/2011 Displacement of cervical intervertebral disc without myelopathy 2007 C4-5 DM neuropathy, type II diabetes mellitus ([facility]) 07/30/2012 DM type 2 causing renal disease ([facility]) DIABETES TYPE II W RENAL MANIFEST DM type 2, goal A1c below 7 DM type 2, not at goal ([facility]) 1998 Dyslipidemia, goal LDL below 100 01/20/2009 [...] or foot 04/20/2005 Lumbago Microalbuminuric diabetic nephropathy (HCC) 06/03/2014 Mixed dyslipidemia Morbid obesity, BMI not known ([facility]) Other B-complex deficiencies Other hammer toe (acquired) 11/13/2004 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 Paroxysmal SVT (supraventricular tachycardia) 04/23/2013 Perforation of esophagus 01/21/08 PERFORATED ESOPHAGUS 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 ([facility]) 07/30/2012 Peripheral sensory neuropathy 01/12/2015 Plantar fibromatosis 04/20/2005 Primary localized osteoarthrosis, lower leg OA of knees PVD (peripheral vascular disease) ([facility]) 11/09/2011 PVD (peripheral vascular disease) ([facility]) 11/09/2011 In a combination Rupture of flexor tendons of hand and wrist 1998 severed tendon index finger right hand Severe nonproliferative diabetic retinopathy(362.06) bilateral Spinal stenosis of lumbar region without neurogenic claudication Spinal stenosis of lumbar region without neurogenic claudication Toe osteomyelitis, right ([facility]) 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[facility]) 01/12/2015 Venous insufficiency Venous stasis of lower extremity 06/17/2013 Vitamin D deficiency 10/16/07 Vitamin D deficiency Patient Active Problem List Diagnosis SPINAL STENOSIS-LUMBAR ADVANCE DIRECTIVE INFORMATION Vitamin D deficiency Cervical spinal stenosis Type 2 diabetes mellitus with hemoglobin A1c goal of less than 7.5% ([facility]) HTN, goal below 140/90 DYSLIPIDEMIA, GOAL LDL BELOW 100 [place] [employer]EARCH OTHER*[id number] Erectile dysfunction DM neuropathy, type II diabetes mellitus ([facility]) Paroxysmal SVT (supraventricular tachycardia) ([facility]) Cardiac pacemaker in situ Venous insufficiency of both lower extremities Microalbuminuric diabetic nephropathy ([facility]) Chronic atrial fibrillation ([facility]) Peripheral sensory neuropathy Vitamin B12 deficiency Cerebrovascular disease, arteriosclerotic, 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 ([facility]) Type 2 diabetes, controlled, with peripheral neuropathy ([facility]) Type 2 diabetes mellitus with peripheral vascular disease ([facility]) Persistent proteinuria H/O gastric bypass assisted current use of 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 Complex sleep apnea syndrome Nocturnal hypoxemia Type 2 diabetes mellitus with stage 3b chronic kidney disease, without long-term current use of insulin ([facility]) Sleep apnea treated with nocturnal BiPAP PAD (peripheral artery disease) ([facility]) Hyperparathyroidism, secondary renal ([facility]) Diabetes mellitus due to underlying condition with severe nonproliferative diabetic retinopathy with macular edema, unspecified eye ([facility]) 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 kidney disease ([facility]) Esophageal obstruction S/P angioplasty with stent 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, without long-term current use of insulin ([facility]) Chronic kidney disease, stage 3b ([facility]) Non-pressure chronic ulcer of other part of right foot with unspecified severity (HCC) Acquired absence of right great toe (HCC) 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, with fat layer exposed (HCC) History of AL (myocardial infarction) Trigger ring finger of left hand Full code status Calculus of gallbladder without cholecystitis without obstruction Stasis ulcer (HCC) MRSA (methicillin resistant Staphylococcus aureus) Orthostatic hypotension Pressure injury of buttock, stage 2 (HCC) Past Surgical History: Procedure Laterality Date AMPUTATION OF TOE 05/06/2011 2nd toe right foot - no osteomyelitis AMPUTATION OF TOE 08/2020 big toe on right foot COLONOSCOPY, DIAGNOSTIC (RECTUM) 09/23/2010 normal COLONOSCOPY, DIAGNOSTIC (RECTUM) 09/08/2021 normal, repeat 10 yrs / COLONOSCOPY FLEXIBLE PROXIMAL DIAGNOSTIC performed by Janice Shoemaker DO atENDOSCOPY [facility] CYSTOSCOPY 02/16/2015 EGD, FLEXIBLE, DIAGNOSTIC 09/20/2007 UPPER GI ENDOSCOPY DIAGNOSTIC performed by KAUSHAL WHITE at [facility] EGD, FLEXIBLE, DIAGNOSTIC 01/04/2008 UPPER GI ENDOSCOPY DIAGNOSTIC performed by KAUSHAL WHITE at [facility] EGD, FLEXIBLE, DIAGNOSTIC 03/21/2008 UPPER GI ENDOSCOPY DIAGNOSTIC performed by KAUSHAL WHITE at [facility] EGD, FLEXIBLE, TRANSENDOSCOPIC DILATION <30MM 01/04/2008 UPPER GI ENDOSCOPY BALLOON DILATION LESS THAN 30MM performed by KAUSHAL WHITE at OR [facility] EXPLORATION OF ABDOMEN 01/21/2008 EXPLORATORY LAPAROTOMY performed by KAUSHAL WHITE at OR [facility] FORM SKIN PEDICLE, TRUNK 02/14/1956 to right forearm INFORMATION Gum surgery/cyst removed INFORMATION 02/13/2005 ORAL CYST REMOVAL INJECTION OF EYE DRUG Right 12/30/2021 # 1 Avastin OD, Dr. Hodge INJECTION OF EYE DRUG Right 04/01/2022 # 2 Avastin OD, Dr. Hodge INSERT/REPLACE PACEMAKER,ATRIAL/VENTRICULAR 04/11/2013 04/11/2013 placement of siingle-chamber pacemaker via left subclavian approach [facility] DR.Mar Garcia - symptomatic bradycardia LAPAROSCOPE PROCEDURE, LIVER 09/20/2007 UNLISTED LAPAROSCOPIC PROCEDURE LIVER performed by KAUSHAL WHITE at OR [facility] LAPAROSCOPIC GASTRIC BYPASS/BHUPINDER-EN-Y 09/20/2007 LAPAROSCOPIC GASTRIC RESTRICTIVE BYPASS BHUPINDER EN Y performed by KAUSHAL WHITE at OR [facility] LASER SURGERY OF INNER EYE STRANDS Bilateral "about 20- 25 years ago" MICROSURGERY ADD-ON 05/07/2010 MICROSURGICAL SURGERY REQUIRING MICROSCOPE LISTED SEPARATELY performed by GAVIN BHARDWAJ at OR [facility] MRI FOOT WO CONTRAST 04/06/2011 Osteomyelitis of the distal phalanx of the 2nd digit. Reactive edema versus early osteomyelitis of the 2nd middle phalanx NECK SPINE FUSION (CERV, BELOW C2) 09/05/2008 ARTHRODESIS SPINE ANTERIOR CERVICAL performed by GAVIN BHARDWAJ at OR [facility] NECK SPINE FUSION (CERV, BELOW C2) 05/07/2010 ARTHRODESIS SPINE ANTERIOR CERVICAL performed by GAVIN BHARDWAJ at OR [facility] NECK SPINE FUSION (CERV, BELOW C2) 05/07/2010 ARTHRODESIS SPINE POSTERIOR CERVICAL performed by GAVIN BHARDWAJ at OR [facility] OTHER (INFORMATION) ACT 112 SIGNED 06/11/20 DR. HODGE OTHER (INFORMATION) Bilateral AVASTIN OU CONSENT DR. HODGE/MITESH EXP. 12/30/22 PACEMAKER INSERTION PER 01/18/2023 Dr. Rodriguez [facility] PARTIAL AMPUTATION OF TOE Right 12/2020 3rd toe and release tendon of other toes at the same time. REMOVAL OF TONSILS, AGE 12+ REMOVE ADDED VERTEBRAL SEG, NECK 05/07/2010 VERTEBRAL CORPECTOMY CERVICAL EACH ADDITIONAL LEVEL performed by GAVIN BHARDWAJ at OR [facility] REMOVE CATARACT, INSERT LENS PROSTH Right 03/10/2022 right EXTRACAPSULAR CATARACT REMOVAL WITH INTRAOCULAR LENS performed by Liang Marshall MD at OR [facility] REMOVE CATARACT, INSERT LENS PROSTH Left 03/24/2022 left EXTRACAPSULAR CATARACT REMOVAL WITH INTRAOCULAR LENS performed by Liang Marshall MD at OR [facility] REMOVE NECK SPINE DISK, SINGLE 09/05/2008 DISKECTOMY ANTERIOR CERVICAL performed by GAVIN BHARDWAJ at OR [facility] REMOVE NECK SPINE DISK, SINGLE 05/07/2010 DISKECTOMY ANTERIOR CERVICAL performed by GAVIN BHARDWAJ at OR [facility] REMOVE VERTEBRAL BODY, NECK, SINGLE 05/07/2010 VERTEBRAL CORPECTOMY ANTERIOR CERVICAL performed by GAVIN BHARDWAJ at OR [facility] REPAIR FINGER/HAND TENDON, EACH & right index finger tendon transfer from toe - [facility]. SPINE FIX DEV, ANT, 4-7 SEG, INSERT 05/07/2010 ANTERIOR INSTRUMENTATION 4 TO 7 VERTEBRAL SEGMENTS performed by GAVIN BHARDWAJ at OR [facility] SPINE SEG FIX, POST, 3-6 SEG, INSERT 05/07/2010 POSTERIOR SPINE SEGMENTAL INSTRUMENTATION 3 TO 6 PSF performed by GAVIN BHARDWAJ at OR [facility] UPPR GI ENDOSCOPY W/STENT 01/21/2008 UPPER GI ENDOSCOPY WITH TRANSENDOSCOPIC STENT PLACEMENT performed by AKUSHAL WHITE at [facility] Family History Problem Relation Name Age of Onset Heart Disorder Mother pacemaker Diabetes Mother Cancer Mother esopheagal Hypertension Mother Cancer Father Diabetes Father Heart Disorder Father Blindness Father "Diabetes related" Hypertension Father Hypertension Brother Family Status Relation Status Mo HTN, DM, hypothyroidism, esphogeal cancer Fa at age 53 stomach cancer, DM, CAD Sis Alive thyroid disease Sis Alive leg ulcers Bro MVA Bro Alive Lyle Alive Son Alive Social History Socioeconomic History Marital status: Spouse name: Number of children: 2 Years of education: Not on file Highest education level: Not on file Occupational History 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: [employer]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 Employer: [employer] 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 Employer: [employer] Tobacco Use Smoking status: Never Smokeless tobacco: Never Vaping Use Vaping status: Never Used Substance and Sexual Activity Alcohol use: Yes Comment: rare beer or wine in the summer Drug use: No Sexual activity: Yes Partners: Female Other Topics Concern Not on file Social History Narrative Social Determinants of Health Financial Resource Strain: Not on file Food Insecurity: No Food Insecurity (02/16/2023) Hunger Vital Sign Worried About Running Out of Food in the Last Year: Never true Ran Out of Food in the Last Year: Never true Transportation Needs: Not on file Physical Activity: Not on file Stress: Not on file Social Connections: Not on file Intimate Partner Violence: Not on file Housing Stability: Not on file Review of patient's allergies indicates: No Known Allergies Review of Systems: Constitutional ROS: No change in weight, No weakness, No fatigue and No fevers, sweats, or chills Eye ROS: No recent significant change in vision, No eye pain, redness, discharge and No diplopia Ear ROS: No ear pain, No drainage, No tinnitus or vertigo and No recent change in hearing Nose ROS: No nasal stuffiness and No significant epistaxis Mouth/Throat ROS: No thrush or No sore throat Neck ROS: No lumps or masses, No swollen glands, No recent swelling in thyroid area and No significant pain in neck Pulmonary ROS: No cough, sputum, or hemoptysis, No wheezing, No shortness of breath and No recent change in breathing Cardiovascular ROS: No chest pain, No shortness of breath, No edema, No palpitations and No syncope Gastrointestinal ROS: No abdominal pain, No change in bowel habits, No significant change in appetite, No nausea, vomiting, diarrhea, or constipation and No dysphagia Musculoskeletal/Extremities ROS: No pain, redness or swelling on the joints Skin/Integumentary ROS: No rash and No itching Neurologic ROS: No headaches and No seizures Psychiatric ROS: No depression, No anxiety and No psychosis Sleep: No sleep disorders SNF course of stay: Yes - PT DEVELOPED SEVERE CONSTIPATION AND CRAMPING DESPITE [facility] BOWEL PROTOCOL.XRAY OF ABDOMEN NEGATIVE FOR OBSTRUCTION. GIVEN FLEET ENEMA WITH LARGE SOFT BM AND IMPROVEMENT IN SYMPTOMS. CURRENTLY ON MIRALAX 17 G DAILY AND SENNA S TWO BID. WOUND SPECIALTY IN FACILITY EVALUATED AND MANAGED PT'S WOUNDS RLE. Adequate nutrition/fluids: Yes Bowel/Bladder dysfunction: No Assistive Devices: with walker ADL: independent O: PHYSICALEXAM: I reviewed the most recent facilities vitals. General: alert, no distress, chronically ill appearing Eye Exam: Conjunctiva are pink and non-injected, sclera clear Ears: External ears normal Nose: no mucosal erythema, no mucosal edema, no purulent discharge Oropharynx: no exudate, no erythema, lips, buccal mucosa, and tongue normal and mucous membranes are moist Neck: supple, no adenopathy, non-tender, neck veins flat, trachea midline Lymph: no palpable lymphadenopathy Heart: regular rate & rhythm, no murmurs and no gallops Lungs: normal respiratory rate and rhythm, no chest wall tenderness, lungs clear to auscultation Abdomen: abdomen soft, non-tender, normal bowel sounds and no masses or organomegaly Extremities: , no edema, no clubbing, no cyanosis Neuro Exam: alert & oriented x 3 with fluent speech, DM neuropathy Skin: skin color, texture, turgor are normal, resolving venous ulcer right leg and chronic ongoing plantar ulcer right plantar foot. A: Cellulitis of right leg (Primary) MRSA infection Non-pressure chronic ulcer of other part of right foot with unspecified severity (HCC) Venous ulcer of right leg (HCC) 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, controlled, with peripheral neuropathy (HCC) Cerebrovascular disease, arteriosclerotic, post-stroke Chronic atrial fibrillation (HCC) Cardiac pacemaker in situ Slow transit constipation P: 1. Discharge to home 2. Home Health was consulted for nursing, PT, and OT. [facility] 3. Copy of chart sent to Dr Desai 4. Patient to follow up with Dr Desai within 7 days. 5. Home Visitor: Savannah Peoples RN 6. I spent 45 minutes on discharge. 7. [facility] Home Treatment Given: as above I have reviewed the patients controlled substance dispensing history in the Prescription Drug Monitoring Program in compliance with the [facility] regulations before prescribing a controlled substance. Last Tox Screen Results: No results found. However, due to the size of the patient record, not all encounters were searched.Please check Results Review for a complete set of results. documented in this encounter Plan of Treatment Upcoming Encounters Date Type Department Care Team (Latest Contact Info) Description 07/05/2023 5:30 PM EDT Anticoagulation Pharmacy Call Center [address] [place] [phone] [place] [address] Chronic atrial fibrillation (HCC)* 07/07/2023 5:30 PM EDT Anticoagulation Pharmacy Call Center [address] [place] [address] [place] [phone] [facility] [place] [address] 11/20/2023 2:00 PM EDT Office [facility] [place] [address] [place] [address] Marycarmen Kowalski PA-C [address] [place] [address] 02/20/2024 12:30 PM EST Nurse Only Ancillary [address] [place] [address] [place], Nurse [address] [place] [address] Scheduled Procedures Name Priority Associated Diagnoses Date/Ti [...] Screening 02/17/2024 02/16/2023 CKD HGB USE SMARTSET 58013 07/02/202407/02, 07/03/2023, 06/28/2023, Additional history exists CKD PHOS USE SMARTSET 21901 07/02/202406/14, 11/16/2022, 09/29/2021, Additional history exists DTaP,Tdap,and [...] this encounter Medical Devices Implanted Type Area Trial Court Judge Device Identifier Shelf Expiration Date Model / Serial / Lot Shaft Fibula 6cm [id number] - [id number] Implanted:Qty: 1 on 09/05/2008 at OR [facility] Tissue - Human N/A: Spine Cervical MUSCULOSKELETAL TRANSPLANT FND 04/20/2010 [id number] / [id number] 0P / Stent Eso Gw 22x70 [id number] - [id number] Implanted:Qty: 1 on 01/21/2008 at OR [facility] N/A: Esophagus [employer] 04/12/2009 [id number] / / [id number] Depuy Uniplate 32 Implanted:Qty: 1 on 09/05/2008 at OR [facility] N/A: Spine Cervical [employer]AM[employer]PUY 1897-02-302 / / Depuy Uniplate Screw 14mm Implanted:Qty: 2 on 09/05/2008 at OR [facility] N/A: Spine Cervical [employer]PUY 1897-06-017 / / Depuy Lordotic Bengal Cage Implanted:Qty: 1 on 05/07/2010 at OR [facility] N/A: Neck 1773-06-146 / 1773-06-146 / Plate Zach 3 Level Ti 54mm - [id number] Implanted:Qty: 1 on 05/07/2010 at OR [facility] N/A: Neck JNJ : DEPUY SPINE [id number] / / Screw Zach Const St Ti 14mm - [id number] Implanted:Qty: 4 on 05/07/2010 at OR [facility] N/A: Neck JNJ : DEPUY SPINE [id number] 14 / / Screw 3.5x14 Mntr Fa [id number] - [id number] Implanted:Qty: 8 on 05/07/2010 at OR [facility] N/A: Spine Cervical JNJ : [employer] [id number] / / Jarrell [id number] - [id number] Implanted:Qty: 1 on 05/07/2010 at OR [facility] N/A: Spine Cervical JNJ : [employer] [id number] / / Screw Inner Mntr [id number] - [id number] Implanted:Qty: 8 on 05/07/2010 at OR [facility] N/A: Spine Cervical JNJ : [employer] [id number] / / Envista Intraocular Lens Implanted:Qty: 1 on 03/10/2022 by Liang Marshall MD at OR [facility] Right: Eye [employer] 08/13/2023 [id number] / [id number] / [id number] Envista Intraocular Lens Implanted:Qty: 1 on 03/24/2022 by Liang Marshall MD at OR [facility] Left: Eye [employer]OM[employer] 07/13/2024 [id number] / [id number] / [id number] documented as of this encounter Visit Diagnoses Diagnosis Chronic atrial fibrillation (HCC)- Primary Atrial fibrillation Cellulitis of right leg- Primary Cellulitis and abscess of leg, except foot MRSA infection Methicillin resistant Staphylococcus aureus in conditions classified elsewhere and of unspecified site Non-pressure chronic ulcer of other part of right foot with unspecified severity (HCC) Venous ulcer of right leg (HCC) 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, controlled, with peripheral neuropathy (HCC) Type II or unspecified type diabetes mellitus with neurological manifestations, not stated as uncontrolled Cerebrovascular disease, arteriosclerotic, post-stroke Cerebral atherosclerosis Chronic atrial fibrillation (HCC) Atrial fibrillation Cardiac pacemaker in situ Slow transit constipation documented in this encounter Advance Directives Documents on File Type Date Recorded 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 No Care Teams Drop Machine Operator Relationship Specialty Start Date End Date Jocelyne Desai DO [address] [place] [address] [place] [address] PCP - General Internal Medicine 11/09/16 documented as of this encounter
[2023-08-01 09:35] LABS: Albumin Level 3.5 gm/dl (3.4-5.0); Bilirubin Direct 0.2 mg/dl (0-0.2); Bilirubin,Total 0.8 mg/dl (0.2-1.0); Calcium 8.6 mg/dl (8.6-10.3); Est GFR (African American) 17.5 ml/min; Est GFR (Non-African American) 15.1 ml/min; Magnesium 1.4 mg/dl (1.7-2.4); Total Protein 8.2 gm/dl (6.0-8.3)
--- OUTSIDE RECORDS SUMMARY | 2023-08-01 09:35 | External Medical Summary | Continuity Of Care Document ---
Author Name Unknown Address [address] [place] [address] Organization [facility] ( ) Care Team Providers Care Senior Process Engineer Name Role Phone Primitivo Heck Primary Care Provider [phone] Problems Code Description Start Date End Date Status L03.115 Cellulitis of right lower limb 06/27/2023 Active N17.9 Acute kidney failure, unspecified 06/27/2023 Active A41.9 Sepsis, unspecified organism 06/27/2023/ 000 Active E11.9 Type 2 diabetes mellitus without complications 06/27/2023 Active I50.9 Heart failure, unspecified 06/27/2023000 0 Active E66.01 Morbid (severe) obesity due to excess calories 06/27/2023 Active Z86.14 Personal history of Methicillin resistant Staphylococcus aureus infection 06/27/2023 Active E11.621 Type 2 diabetes mellitus with foot ulcer 2023 Active I48.91 Unspecified atrial fibrillation 06/27/2023/ Active I73.9 Peripheral vascular disease, unspecified 2023 Active I67.9 Cerebrovascular disease, unspecified 06/27/2023 Active E78.5 Hyperlipidemia, unspecified 06/27/2023 00 Active Z95.0 Presence of cardiac pacemaker 06/27/2023 Active I49.5 Sick sinus syndrome 06/27/2023 Activ e VITAL SIGNS Date Time Diastolic blood pressure Systolic blood pressure Body height Body weight Temperature SpO2 Blood Sugar Pulse Respirations 59336 514 17323 9 204.00 NI 17184 514 74617 1 71 NI 62385 514 18801 7 67.00 mm[Hg] - Sitting 110.00 mm[Hg] - Sitting 204.00 NI 98.30 Oral 94.00 % 63.00/ min 18.00/min 73582 515 11703 5 202.00 NI 02139 515 40937 8 64.00 mm[Hg] - Sitting 114.00 mm[Hg] - Sitting 202.00 NI 97.80 Ear 69.00/ min 18.00/min 59825 515 54216 5 70.00 mm[Hg] - Sitting 112.00 mm[Hg] - Sitting 96.20 Ear 99.00 % 63.00/ min 20.00/min 08115 516 02019 8 70993 516 07931 5 34624 516 98977 0 202.00 NI 98784 516 54273 1 66208 516 18999 4 202.20 NI 53173 516 82070 4 70.00 mm[Hg] - Sitting 112.00 mm[Hg] - Sitting 96.20 Ear 63.00/ min 00891 516 55082 7 6 NI 20.00/mi n 49430 516 18068 3 79.00 mm[Hg] - Sitting 128.00 mm[Hg] - Sitting 97.20 Ear 98.00 % 74.00/ min 20.00/min 71972 517 23764 1 26479 517 37159 0 72.00 mm[Hg] - Sitting 133.00 mm[Hg] - Sitting 98.80 Ear 98.00 % 65.00/ min 18.00/min 67669 517 28319 8 17719 517 13209 7 38835 518 11285 4 72.00 mm[Hg] - Sitting 123.00 mm[Hg] - Sitting 97.50 Ear 93.00 % 64.00/ min 18.00/min 39711 519 61319 0 67.00 mm[Hg] - Sitting 107.00 mm[Hg] - Sitting 96.40 Ear 96.00 % 69.00/ min 18.00/min 20785 520 58592 9 74.00 mm[Hg] - Sitting 123.00 mm[Hg] - Sitting 97.80 Ear 95.00 % 69.00/ min 18.00/min Immunizations Vaccine Date Status COVID-19 03/19/2020 Completed COVID-19 04/09/2020 Completed COVID-19 02/16/2021 Completed COVID-19 11/16/2021 Completed Hepatitis B 05/13/2002 Completed Hepatitis B 06/10/2002 Completed Hepatitis B 11/11/2002 Completed Influenza 11/27/2018 Completed Influenza 11/09/2021 Completed (PCV13)Pneumococcal 11/01/2017 Completed (PPSV23)Pneumococcal 11/27/2018 Completed Shingles 10/04/2018 Completed Tetanus 12/01/2018 Completed TDaP 10/11/2007 Completed
--- OUTSIDE RECORDS SUMMARY | 2023-08-01 09:35 | External Medical Summary | Summary of Care ---
Author Name Unknown Organization [facility] Address [address] [facility] [place] [place] [address] Phone [phone] Care Team Providers Care [employer] Member Name Role Phone Jocelyne Desai Primary Care Provider + [phone] Reason for Visit * Reason Onset Date Comments Skilled Visit 07/03/2023 Encounter Details Date Type Department Care Team (Latest Contact Info) Description 07/03/2023 7:30 AM EDT Intermediate Visit [facility] [address] [place] [address] Ryanne Ramos PA-C [address] [place] [address] Cellulitis of right leg*; 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, with fat layer exposed, unspecified part of foot (HCC); MRSA (methicillin resistant Staphylococcus aureus); Non-pressure chronic ulcer of other part of right foot with unspecified severity ([facility]); Type 2 diabetes, controlled, with peripheral neuropathy ([facility]); Type 2 diabetes mellitus with stage 3b chronic kidney disease, without long-term current use of insulin ([facility]); Slow transit constipation Allergies No known active allergiesdocumented as of this encounter (statuses as of 07/03/2023) Medications Medication Sig Dispensed Refills Start Date End Date Status ACETAMINOPHEN 500 MG PO TABS 2 tabs every 6 hours as needed for discomfort 11/01/2013 Active Cyanocobalamin (VITAMIN B-12) 1000 MCG Tablet Take 1 Tablet by mouth every evening. 11/22/2017 Active Cholecalciferol (VITAMIN D3) 50 MCG (1999 UT) Capsule Take 1 Capsule by mouth every evening. 01/22/2019 Active Flintstones w/Iron 18 MG Oral Tablet Chewable Take by mouth 1 Tablet every evening . 04/07/2020 Active Magnesium Oxide 400 MG Oral Capsule Take 1 Cap by mouth 2 times a day. 200 Cap 5 10/16/2020 Active Additional Information Patient taking differently:400 mg OralDaily(AM), Reported on 01/10/2023 Aspirin 81 MG Oral Tablet Delayed Release Take 1 Tablet by mouth every evening. Active Tamsulosin HCl 0.4 MG Oral Capsule (Flomax) TAKE 1 CAPSULE BY MOUTH IN THE MORNING 100 Capsule 3 08/23/2022 Active Metoprolol Succinate ER 25 MG Oral Tablet Extended Release 24 Hour (toPROL XL) Take 1 Tablet by mouth in the morning. 100 Tablet 3 11/08/2022 Active Warfarin Sodium 3 MG Oral Tablet (Coumadin)Indicati ons:Chronic atrial fibrillation (HCC) TAKE 1 TO 2 TABLETS BY MOUTH DAILY, DIRECTED BY [facility]MADIN [facility]INIC 180 Tablet 3 02/04/2023 02/04/2024 Active Atorvastatin Calcium 40 MG Oral Tablet (Lipitor) TAKE ONE TABLET BY MOUTH EVERY DAY 100 Tablet 2 03/06/2023 Active Boost Oral Liquid Take 237 mL by mouth in the morning and 237 mL at noon and 237 mL in the evening. Take before meals. 06/28/2023 Active Enoxaparin Sodium 60 MG/0.6ML Injection Solution Prefilled Syringe (Lovenox) Inject 90 mg under the skin in the morning and 90 mg before bedtime. 06/28/2023 Active Ozempic (0.25 or 0.5 MG/DOSE) 2 MG/3ML Solution Pen-injector (Semaglutide(0.25 or 0.5MG/DOS)) Inject 0.25 mg under the skin once a week 06/28/2023 Active Midodrine HCl 2.5 MG Oral Tablet (Proamatine) Take 1 Tablet by mouth in the morning and 1 Tablet at noon and 1 Tablet in the evening. 06/28/2023 Active Soaanz 40 MG Oral Tablet (Torsemide) Take 1 Tablet by mouth in the morning and 1 Tablet before bedtime. 06/28/2023 Active Potassium Chloride Candi ER 20 MEQ Oral Tablet Extended Release Take 1 Tablet by mouth in the morning. 06/28/2023 Active Sennosides-Docusat e Sodium 8.6-50 MG Oral Tablet (Senna S) Take 1 Tablet by mouth in the morning. 06/28/2023 Active oxyCODONE HCl 5 MG Oral Tablet (Oxy IR) Take 1 Tablet by mouth every 6 hours as needed for Pain, Moderate or Pain, Severe. 06/28/2023 Active Acetaminophen 325 MG Oral Tablet (Tylenol) Take 2 Tablets by mouth every 4 hours as needed for Fever >38C(100.5F) or Pain, Mild. 06/28/2023 Active Cyclobenzaprine HCl 10 MG Oral Tablet (Flexeril) Take 1 Tablet by mouth every 8 hours as needed for Muscle spasms. 06/28/2023 Active documented as of this encounter (statuses as of 07/03/2023) Active Problems Patient Care Coordination No te Formatting of this note migh t be different from the original. Good connectivity [facility] for wound care [phone] Televideo if needed. Problem Noted Date Diagnosed Date MRSA (methicillin resistant Staphylococcus aureu s) 06/30/2023 Orthostatic hypotension 06/30/2023 Pressure injury of buttock, stage 2 06/30/2023 Full code status 06/28/2023 Calculus of gallbladder with out cholecystitis without obstruction 06/28/2023 Stasis ulcer 06/28/2023 History of NH (myocardial infarction) 11/09/2021 Trigger ring finger of left hand 11/09/2021 Overview: Also middle finger 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, with fat layer exposed 07/13/2021 Last Assessment & Plan: Ulcer appears overall improved. He has significant history DM and PVD and recommended he still follow up with podiatry,. Letter in chart from [facility] podiatry they were unable to get [...] 11/27/2018 H/O gastric bypass 11/27/2018 Overview: RYGB [facility] current use of 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 1 Status [...] ICD-10 update of inactive term PLATT RESEARCH OTHER*[id number] 02/20/2007 ADVANCE DIRECTIVE INFORMATION 01/19/2005 Overview: Yes, Patient instructed to provide copy of advance directive for provider to review and to be scanned into Electronic Medical Record No, Advance Directive brochure given to patient at prior appointment. SPINAL STENOSIS-LUMBAR 09/23/2002 Vitamin D deficiency Cervical spinal stenosis documented as of this encounter (statuses as of 07/03/2023) Resolved Problems Problem Noted Date Diagnosed Date Resolved Date Depression, unspecified 11/09/2021 03/2 Depression, unspecified 11/09/202105/2022 Cellulitis of right leg 07/13/202105/2022 Last Assessment & Plan: Suspect this could be early/localized. Will treat with 7 days antibiotic. If pt cannot be reassess by Dr. Braxton office early next week will need [facility] provider recheck Multiple and open wound [...] 11/17/19 23 LUMBAGO 12/24/2002 05/09/2007 LOC PRIM [id number] 12/24/200208/13 DEGENERATIVE SKIN DISORD 12/24/2002 VERTEBRAL FX [...] as of this encounter (statuses as of 07/03/2023) Immunizations Name Administration Dates Next Due COVID-19 mRNA, LNP-s, No Pre serve, 2-Dose Series (Moderna) 03/19/2020 COVID-19 mRNA, LNP-s, No Pre serve, 2-Dose Series (Pfizer) 02/16/2021,04/09/2020,03/19/2020 COVID-19, MRNA-LNP, 23-24, P F, 30 MCG/0.3 mL, 12 YRS AND ABOVE, IM ([employer]) 11/16/2022 Covid-19, Mrna, Lnp-s, Pf, B ivalent, [...] Progress Notes * Ryanne Ramos PA-C - 07/03/2023 3:09 PM EDT Name: Lg Cooley Date of :1950 TRANSITION EVENT: Type: Skilled visit Date: July 02 Code Status: Full Code This note pertains to care provided at [facility]. Please see facility medical record for original note. This note is not to be edited or addended in [employer]. Editing or addending needs to occur in the facilities medical record. Subjective: Lg Cooley is a 72 year old male. Patient being seen for skilled visit Chief Complaint Patient presents with Skilled Visit HPI: pt here for rehabiliation following cellulitis right leg, +MRSA infection, Diabetic right footulcer. Completed antibiotics in hospital. Developed JORGE while in hospital which was treated. Creatinine now 3.0 from 5.0. follows with nephrology. Vital signs stable. Afebrile. Becoming more constipated. Passing hard stools is on Senna S one daily. No cramping, melena, hematochezia. CBC Results: Results for orders placed or [...] BLOOD - [facility] 140 05/07/2010 11:49 AM Patient Active Problem List Diagnosis SPINAL STENOSIS-LUMBAR ADVANCE DIRECTIVE INFORMATION Vitamin D deficiency Cervical spinal stenosis Type 2 diabetes mellitus with hemoglobin A1c goal of less than 7.5% ([facility]) HTN, goal below 140/90 DYSLIPIDEMIA, GOAL LDL BELOW 100 PLATT RESEARCH OTHER*[id number] Erectile dysfunction DM neuropathy, type II diabetes mellitus ([facility]) Paroxysmal SVT (supraventricular tachycardia) ([facility]) Cardiac pacemaker in situ Venous insufficiency of both lower extremities Microalbuminuric diabetic nephropathy ([facility]) Chronic atrial fibrillation ([facility]) Peripheral sensory neuropathy Vitamin B12 deficiency Cerebrovascular disease, arteriosclerotic, 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 ([facility]) Type 2 diabetes, controlled, with peripheral neuropathy ([facility]) Type 2 diabetes mellitus with peripheral vascular disease ([facility]) Persistent proteinuria H/O gastric bypass [employer]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 Complex sleep apnea syndrome Nocturnal hypoxemia Type 2 diabetes mellitus with stage 3b chronic kidney disease, without long-term current use of insulin ([facility]) Sleep apnea treated with nocturnal BiPAP PAD (peripheral artery disease) ([facility]) Hyperparathyroidism, secondary renal ([facility]) Diabetes mellitus due to underlying condition with severe nonproliferative diabetic retinopathy with macular edema, unspecified eye ([facility]) 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 kidney disease ([facility]) Esophageal obstruction S/P angioplasty with stent 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, without long-term current use of insulin ([facility]) Chronic kidney disease, stage 3b ([facility]) Non-pressure chronic ulcer of other part of right foot with unspecified severity ([facility]) Acquired absence of right great toe ([facility]) 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, with fat layer exposed ([facility]) History of NH (myocardial infarction) Trigger ring finger of left hand Full code status Calculus of gallbladder without cholecystitis without obstruction Stasis ulcer ([facility]) MRSA (methicillin resistant Staphylococcus aureus) Orthostatic hypotension Pressure injury of buttock, stage 2 ([facility]) Past Medical History: Diagnosis Date Amputated toe (HCC) 05/06/11 2nd toe right foot- no osteomyelitis Atrial fibrillation (HCC) Atrial fibrillation (HCC) Atrial fibrillation ([facility]) B12 deficiency 12/21/2015 Background diabetic retinopathy(362.01) Cervical spinal stenosis 2007 Cervical spondylosis with myelopathy Cervical spondylosis with myelopathy 2007 Chronic atrial fibrillation ([facility]) 01/12/2015 Closed fracture of unspecified part of vertebral column without mention of spinal cord injury 1989 T8 Degeneration of lumbosacral intervertebral disc Degeneration of lumbosacral intervertebral disc Degeneration of thoracic intervertebral disc Degeneration of thoracic intervertebral disc Degenerative skin disorder Necrobiosis lipoidica Depressive disorder, not elsewhere classified Depressive disorder, not elsewhere classified Diabetic foot ulcer ([facility]) 04/27/2011 Displacement of cervical intervertebral disc without myelopathy 2007 C4-5 DM neuropathy, type II diabetes mellitus ([facility]) 07/30/2012 DM type 2 causing renal disease ([facility]) DIABETES TYPE II W RENAL MANIFEST DM type 2, goal A1c below 7 DM type 2, not at goal ([facility]) 1998 Dyslipidemia, goal LDL below 100 01/20/2009 [...] or foot 04/20/2005 Lumbago Microalbuminuric diabetic nephropathy ([facility]) 06/03/2014 Mixed dyslipidemia Morbid obesity, BMI not known ([facility]) Other B-complex deficiencies Other hammer toe (acquired) 11/13/2004 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 Paroxysmal SVT (supraventricular tachycardia) 04/23/2013 Perforation of esophagus 01/21/08 PERFORATED ESOPHAGUS 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 ([facility]) 07/30/2012 Peripheral sensory neuropathy 01/12/2015 Plantar fibromatosis 04/20/2005 Primary localized osteoarthrosis, lower leg OA of knees PVD (peripheral vascular disease) ([facility]) 11/09/2011 PVD (peripheral vascular disease) ([facility]) 11/09/2011 In a combination Rupture of flexor tendons of hand and wrist 1998 severed tendon index finger right hand Severe nonproliferative diabetic retinopathy(362.06) bilateral Spinal stenosis of lumbar region without neurogenic claudication Spinal stenosis of lumbar region without neurogenic claudication Toe osteomyelitis, right ([facility]) 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[facility]) 01/12/2015 Venous insufficiency Venous stasis of lower [...] DIAGNOSTIC performed by Janice Shoemaker DO atENDOSCOPY [facility] CYSTOSCOPY 02/16/2015 EGD, FLEXIBLE, DIAGNOSTIC 09/20/2007 UPPER GI ENDOSCOPY DIAGNOSTIC performed by KAUSHAL WHITE at [facility] EGD, FLEXIBLE, DIAGNOSTIC 01/04/2008 UPPER GI ENDOSCOPY DIAGNOSTIC performed by KAUSHAL WHITE at [facility] EGD, FLEXIBLE, DIAGNOSTIC 03/21/2008 UPPER GI ENDOSCOPY DIAGNOSTIC performed by KAUSHAL WHITE at [facility] EGD, FLEXIBLE, TRANSENDOSCOPIC DILATION <30MM 01/04/2008 UPPER GI ENDOSCOPY BALLOON DILATION LESS THAN 30MM performed by KAUSHAL WHITE at [facility] EXPLORATION OF ABDOMEN 01/21/2008 EXPLORATORY LAPAROTOMY performed by KAUSHAL WHITE at [facility] FORM SKIN PEDICLE, TRUNK 02/14/1956 to right forearm INFORMATION Gum surgery/cyst removed INFORMATION 02/13/2005 ORAL CYST REMOVAL INJECTION OF EYE DRUG Right 12/30/2021 # 1 Avastin OD, Dr. Hodge INJECTION OF EYE DRUG Right 04/01/2022 # 2 Avastin OD, Dr. Hodge INSERT/REPLACE PACEMAKER,ATRIAL/VENTRICULAR 04/11/2013 04/11/2013 placement of siingle-chamber pacemaker via left subclavian approach [facility] DR.Mar Garcia - symptomatic bradycardia LAPAROSCOPE PROCEDURE, LIVER 09/20/2007 UNLISTED LAPAROSCOPIC PROCEDURE LIVER performed by KAUSHAL WHITE at [facility] LAPAROSCOPIC GASTRIC BYPASS/BHUPINDER-EN-Y 09/20/2007 LAPAROSCOPIC GASTRIC RESTRICTIVE BYPASS BHUPINDER EN Y performed by KAUSHAL WHITE at [facility] LASER SURGERY OF INNER EYE STRANDS Bilateral "about 20- 25 years ago" MICROSURGERY ADD-ON 05/07/2010 MICROSURGICAL SURGERY REQUIRING MICROSCOPE LISTED SEPARATELY performed by GAVIN BHARDWAJ at [facility] MRI FOOT WO CONTRAST 04/06/2011 Osteomyelitis of the distal phalanx of the 2nd digit. Reactive edema versus early osteomyelitis of the 2nd middle phalanx NECK SPINE FUSION (CERV, BELOW C2) 09/05/2008 ARTHRODESIS SPINE ANTERIOR CERVICAL performed by GAVIN BHARDWAJ at [facility] NECK SPINE FUSION (CERV, BELOW C2) 05/07/2010 ARTHRODESIS SPINE ANTERIOR CERVICAL performed by GAVIN BHARDWAJ at [facility] NECK SPINE FUSION (CERV, BELOW C2) 05/07/2010 ARTHRODESIS SPINE POSTERIOR CERVICAL performed by GAVIN BHARDWAJ at [facility] OTHER (INFORMATION) ACT 112 SIGNED 06/11/20 DR. HODGE OTHER (INFORMATION) Bilateral AVASTIN OU CONSENT DR. HODGE/MITESH EXP. 12/30/22 PACEMAKER INSERTION PER 01/18/2023 Dr. Rodriguez [facility] PARTIAL AMPUTATION OF TOE Right 12/2020 3rd toe and release tendon of other toes at the same time. REMOVAL OF TONSILS, AGE 12+ REMOVE ADDED VERTEBRAL SEG, NECK 05/07/2010 VERTEBRAL CORPECTOMY CERVICAL EACH ADDITIONAL LEVEL performed by GAVIN BHARDWAJ at [facility] REMOVE CATARACT, INSERT LENS PROSTH Right 03/10/2022 right EXTRACAPSULAR CATARACT REMOVAL WITH INTRAOCULAR LENS performed by Liang Marshall MD at [facility] REMOVE CATARACT, INSERT LENS PROSTH Left 03/24/2022 left EXTRACAPSULAR CATARACT REMOVAL WITH INTRAOCULAR LENS performed by Liang Marshall MD at [facility] REMOVE NECK SPINE DISK, SINGLE 09/05/2008 DISKECTOMY ANTERIOR CERVICAL performed by GAVIN BHARDWAJ at [facility] REMOVE NECK SPINE DISK, SINGLE 05/07/2010 DISKECTOMY ANTERIOR CERVICAL performed by GAVIN BHARDWAJ at [facility] REMOVE VERTEBRAL BODY, NECK, SINGLE 05/07/2010 VERTEBRAL CORPECTOMY ANTERIOR CERVICAL performed by GAVIN BHARDWAJ at [facility] REPAIR FINGER/HAND TENDON, EACH & right index finger tendon transfer from toe - [place] [facility]. SPINE FIX DEV, ANT, 4-7 SEG, INSERT 05/07/2010 ANTERIOR INSTRUMENTATION 4 TO 7 VERTEBRAL SEGMENTS performed by GAVIN BHARDWAJ at [facility] SPINE SEG FIX, POST, 3-6 SEG, INSERT 05/07/2010 POSTERIOR SPINE SEGMENTAL INSTRUMENTATION 3 TO 6 PSF performed by GAVIN BHARDWAJ at [facility] UPPR GI ENDOSCOPY W/STENT 01/21/2008 UPPER GI ENDOSCOPY WITH TRANSENDOSCOPIC STENT PLACEMENT performed by KAUSHAL WHITE at [facility] Family History Problem Relation Name Age of [...] level: Not on file Occupational History 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 Please refer to MAR in the facility's medical record forthe most up-to-date medication list as this cannot be edited in [employer]. Review of Systems: Constitutional ROS: No change in weight, less weakness, less fatigue and No fevers, sweats, or chills Nose ROS: No nasal stuffiness and No [...] change in appetite, No nausea, vomiting, diarrhea, +constipation and No dysphagia Musculoskeletal/Extremities ROS: see HPI Skin/Integumentary ROS:see HPI Neurologic ROS: No headaches and No seizures Psychiatric ROS: No depression, No anxiety and No psychosis Sleep: No sleep disorders OBJECTIVE: PHYSICALEXAM: I reviewed the most recent facilities vitals. General: alert, no distress, well nourished and well developed Eye Exam: Conjunctiva are pink and non-injected, sclera clear Nose: no mucosal erythema, no mucosal edema, no purulent discharge Oropharynx: no exudate, no erythema, lips, buccal mucosa, and tongue normal and mucous membranes are moist Neck: supple, no adenopathy, non-tender, neck veins flat, trachea midline Heart: regular rate & rhythm, no murmurs and no gallops Lungs: normal respiratory rate and rhythm, no chest wall tenderness, lungs clear to auscultation Abdomen: abdomen soft, non-tender, normal bowel sounds and no masses or organomegaly Extremities: dressing removed from right leg and foot. Ulcer right leg granulating in well. No secondary infection. Right plantar foot ulcer also healing. no edema, no clubbing, no cyanosis Skin: skin color, texture, turgor are normal, ASSESSMENT: Cellulitis of right leg (Primary) Completed antibotic course Following with wound specialty 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, with fat layer exposed, unspecified part of foot (HCC) Completed antibotic course Following with wound specialty MRSA (methicillin resistant Staphylococcus aureus) Precautions in place Non-pressure chronic ulcer of other part of right foot with unspecified severity (HCC) Completed antibotic course Following with wound specialty Type 2 diabetes, controlled, with peripheral neuropathy (HCC) Continue Ozempic 0.25mg weekly Type 2 diabetes mellitus with stage 3b chronic kidney disease, without long-term current use of insulin (HCC) Continue Ozempic 0.25mg weekly Slow transit constipation Will increase Senna S to two BID PLAN: Reviewed CBC, CMP, Lytes and Continue present medication(s):as ordered. [facility] Treatment Given: CBC and BMP on Monday Electronically signed by: Ryanne Ramos PA-C Over 35 minutes were spent in this visit more than half the time was spent counselling or coordinating care. documented in this encounter Plan of Treatment Upcoming Encounters Date Type Department Care Team (Latest Contact Info) Description 07/03/2023 5:30 PM EDT Anticoagulation Pharmacy Call Center [address] [place] [address] [facility] [address] [place] [address] Chronic atrial fibrillation (HCC)* 07/05/2023 5:30 PM EDT Anticoagulation Pharmacy Call Center [address] [place] [address] [facility] [address] [place] [address] 11/20/2023 2:00 PM EDT Office Visit Nephrology [address] [place] [address] ZemaitisMarycarmen PA-C [address] [place] [address] [place] [address] 02/20/2024 12:30 PM EST Nurse Only Ancillary [address] [place] [address] [place], Nurse [address] [place] [address] Scheduled Procedures Name Priority Associated Diagnoses Date/Ti [...] Screening 02/17/2024 02/16/2023 CKD HGB USE SMARTSET 63511 07/02/202407/02, 07/03/2023, 06/28/2023, Additional history exists CKD PHOS USE SMARTSET 34205 07/02/202406/14, 11/16/2022, 09/29/2021, Additional history exists DTaP,Tdap,and [...] this encounter Medical Devices Implanted Type Area Auto Rental Supervisor Device Identifier Shelf Expiration Date Model / Serial / Lot Shaft Fibula 6cm [id number] - [id number] Implanted:Qty: 1 on 09/05/2008 at [facility] Tissue - Human N/A: Spine Cervical MUSCULOSKELETAL TRANSPLANT FND 04/20/2010 [id number] / [id number] / Stent Eso Gw 22x70 [id number] - [id number] Implanted:Qty: 1 on 01/21/2008 at [facility] N/A: Esophagus [employer] 04/12/2009 [id number] / / [id number] Depuy Uniplate 32 Implanted:Qty: 1 on 09/05/2008 at OR [facility] [...] Cage Implanted:Qty: 1 on 05/07/2010 at [facility] N/A: Neck [id number] / [id number] / Plate Zach 3 Level Ti 54mm - [id number] Implanted:Qty: 1 on 05/07/2010 at [facility] N/A: Neck JNJ : DEPUY SPINE [id number] / / Screw Zach Const St Ti 14mm - [id number] Implanted:Qty: 4 on 05/07/2010 at [facility] N/A: Neck JNJ : DEPUY SPINE [id number] / / Screw 3.5x14 Mntr Fa [id number] - [id number] Implanted:Qty: 8 on 05/07/2010 at [facility] N/A: Spine Cervical JNJ : [employer] [id number] / / Jarrell [id number] - [id number] Implanted:Qty: 1 on 05/07/2010 at [facility] N/A: Spine Cervical JNJ : [employer] [id number] / / Screw Inner Mntr [id number] - [id number] Implanted:Qty: 8 on 05/07/2010 at [facility] N/A: Spine Cervical JNJ : [employer] [id number] / / Envista Intraocular Lens Implanted:Qty: 1 on 03/10/2022 by Liang Marshall MD at [facility] Right: Eye BAUSCH & LOMB 08/13/2023 [id number] / [id number] / [id number] Intraocular Lens Implanted:Qty: 1 on 03/24/2022 by Liang Marshall MD at OR [facility] Left: Eye BAUSCH & LOMB 07/13/2024 [id number] / [id number] / [id number] documented as of this encounter Visit Diagnoses Diagnosis Chronic atrial fibrillation (HCC)- Primary Atrial fibrillation Cellulitis of right leg- Primary Cellulitis and abscess of leg, except foot 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, with fat layer exposed, unspecified part of foot ([facility]) MRSA (methicillin resistant Staphylococcus aureus) Methicillin resistant Staphylococcus aureus in conditions classified elsewhere and of unspecified site Non-pressure chronic ulcer of other part of right foot with unspecified severity (HCC) Type 2 diabetes, controlled, with peripheral neuropathy (HCC) Type II or unspecified type diabetes mellitus with neurological manifestations, not stated as uncontrolled Type 2 diabetes mellitus with stage 3b chronic kidney disease, without long-term current use of insulin (HCC) Slow transit constipation documented in this encounter Advance Directives Documents on File Type Date Recorded 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 No Care Teams Aboriginal Community Council Member Relationship Specialty Start Date End Date Jocelyne Desai DO [address] [place] [address] [place] [address] PCP - General Internal Medicine 11/09/16 documented as of this encounter
--- OUTSIDE RECORDS SUMMARY | 2023-08-01 09:35 | External Medical Summary | Continuity Of Care Document ---
Author Name Unknown Address [address] [place] [address] Organization [facility] ( ) Care Team Providers Care Certified Medical Assistant Name Role Phone Primtiivo Heck Primary Care Provider +[phone] Problems Code Description Start Date End Date [...] weight Temperature SpO2 Blood Sugar Pulse Respirations 03303 514 64541 9 204.00 NI 48163 514 05891 1 71 NI 01514 514 16991 7 67.00 mm[Hg] - Sitting 110.00 mm[Hg] - Sitting 204.00 NI 98.30 Oral 94.00 % 63.00/ min 18.00/min 77073 515 02286 5 202.00 NI 09467 515 31947 8 64.00 mm[Hg] - Sitting 114.00 mm[Hg] - Sitting 202.00 NI 97.80 Ear 69.00/ min 18.00/min 92788 515 80606 5 70.00 mm[Hg] - Sitting 112.00 mm[Hg] - Sitting 96.20 Ear 99.00 % 63.00/ min 20.00/min 59635 516 37385 8 15301 516 44042 5 96098 516 60124 0 202.00 NI 78371 516 05182 1 03383 516 67092 4 202.20 NI 42498 516 75728 4 70.00 mm[Hg] - Sitting 112.00 mm[Hg] - Sitting 96.20 Ear 63.00/ min 28665 516 13185 7 6 NI 20.00/mi n 80400 516 06158 3 79.00 mm[Hg] - Sitting 128.00 mm[Hg] - Sitting 97.20 Ear 98.00 % 74.00/ min 20.00/min 42923 517 74813 1 73178 517 22447 0 72.00 mm[Hg] - Sitting 133.00 mm[Hg] - Sitting 98.80 Ear 98.00 % 65.00/ min 18.00/min 58690 517 02354 8 34015 517 22388 7 90692 518 97563 4 72.00 mm[Hg] - Sitting 123.00 mm[Hg] - Sitting 97.50 Ear 93.00 % 64.00/ min 18.00/min 91978 519 12127 0 67.00 mm[Hg] - Sitting 107.00 mm[Hg] - Sitting 96.40 Ear 96.00 % 69.00/ min 18.00/min 58398 520 88486 9 74.00 mm[Hg] - Sitting 123.00 mm[Hg] - Sitting 97.80 Ear 95.00 % 69.00/ min 18.00/min 07639 521 45310 0 72.00 mm[Hg] - Sitting 119.00 mm[Hg] - Sitting 98.20 Oral 93.00 % 76.00/ min 20.00/min 04144 522 46041 5 75.00 mm[Hg] - Sitting 134.00 mm[Hg] - Sitting 97.40 Oral 90.00 % 67.00/ min 16.00/min 76336 522 51738 7 61.00 mm[Hg] - Sitting 97.00 mm[Hg] - Sitting 98.00 Ear 95.00 % 63.00/ min 18.00/min Immunizations Vaccine Date Status COVID-19 03/19/2020 Completed COVID-19 04/09/2020 Completed COVID-19 02/16/2021 Completed COVID-19 11/16/2021 Completed Hepatitis B 05/13/2002 Completed Hepatitis B 06/10/2002 Completed Hepatitis B 11/11/2002 Completed Influenza 11/27/2018 Completed Influenza 11/09/2021 Completed (PCV13)Pneumococcal 11/01/2017 Completed (PPSV23)Pneumococcal 11/27/2018 Completed Shingles 10/04/2018 Completed Tetanus 12/01/2018 Completed TDaP 10/11/2007 Completed
--- OUTSIDE RECORDS SUMMARY | 2023-08-01 09:35 | External Medical Summary | Summary of Care ---
Author Name Unknown Organization [facility] [address] [facility] [address] Phone [phone] Care Team Providers Care Water Aerobics Instructor Name Role Phone Jocelyne Desai Primary Care Provider + [phone] Reason for Visit * Reason Onset Date Comments Skilled Visit 07/04/2023 Encounter Details Date Type Department Care Team (Latest Contact Info) Description 07/04/2023 9:30 AM EDT [facility]sp Visit [facility] [address] [place] [address] Ryanne Ramos PA-C [address] [place] [address] Cellulitis of right leg*; 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, with fat layer exposed, unspecified part of foot (HCC); 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 kidney disease (HCC); Slow transit constipation Allergies No known active allergiesdocumented as of this encounter (statuses as of 07/04/2023) Medications Medication Sig Dispensed Refills Start Date [...] as of this encounter (statuses as of 07/04/2023) Active Problems Patient Care Coordination No te Formatting of this note migh t be different from the original. Good connectivity [facility] for wound care [phone] Televideo if needed. 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 SPINAL STENOSIS-LUMBAR 09/23/2002 Vitamin D deficiency Cervical spinal stenosis documented as of this encounter (statuses as of 07/04/2023) Resolved Problems Problem Noted Date Diagnosed Date [...] 11/17/19 23 LUMBAGO 12/24/2002 05/09/2007 LOC PRIM [id number] 12/24/200208/13 DEGENERATIVE SKIN DISORD 12/24/2002 VERTEBRAL FX [...] as of this encounter (statuses as of 07/04/2023) Immunizations Name Administration Dates Next Due COVID-19 mRNA, LNP-s, No Pre serve, 2-Dose Series (Moderna) 03/19/2020 COVID-19 mRNA, LNP-s, No Pre serve, 2-Dose Series (Pfizer) 02/16/2021,04/09/2020,03/19/2020 COVID-19, MRNA-LNP, 23-24, P F, 30 MCG/0.3 mL, 12 YRS AND ABOVE, IM (Biodirection-ComirnatLil Monkey Butt) 11/16/2022 Covid-19, Mrna, Lnp-s, Pf, B ivalent, [...] Progress Notes * Ryanne Ramos PA-C - 07/04/2023 2:27 PM EDT Name: Lg Cooley Date of :1950 TRANSITION EVENT: Type: Skilled visit Date: July 03 Code Status: Full Code This note pertains to care provided at [facility]. Please see facility medical record for original note. This note is not to be edited or addended in [facility]. Editing or addending needs to occur in the facilities medical record. Subjective: Lg Cooley is a 72 year old male. Patient being seen for skilled visit Chief Complaint Patient presents with Skilled Visit HPI: pt here for rehabilitation following cellulitis right leg, diabetic right foot ulcer chronic. Afebrile. Ulcers treated topically and followed by wound specialty. Starting to granulate. No chillsor fever. Less drainage on dressings. Less painful. Vital signs stable. Pt is very tearful over having issues wit constipation. Passage of very hard stools. "I've never been this bad before". Some cramping. Pt had dulcolax suppository which is causing rumbling and gas and flatulence but still no BM. No nausea or vomiting. Eating and drinking ok. Pt is now on Miralax BID and Senna S two bid. CBC Results: Results for orders placed or [...] - [facility] 7.6 (H) 11/09/2022 12:59 PM Patient Active Problem List Diagnosis SPINAL STENOSIS-LUMBAR ADVANCE DIRECTIVE INFORMATION Vitamin D deficiency Cervical spinal stenosis Type 2 diabetes mellitus with hemoglobin A1c goal of less than 7.5% ([facility]) HTN, goal below 140/90 DYSLIPIDEMIA, GOAL LDL BELOW 100 [place] RESEARCH OTHER*[id number] Erectile dysfunction DM neuropathy, type II diabetes mellitus ([facility]) Paroxysmal SVT (supraventricular tachycardia) ([facility]) Cardiac pacemaker in situ Venous insufficiency of both lower extremities Microalbuminuric diabetic nephropathy ([facility]) Chronic atrial fibrillation ([facility]) Peripheral sensory neuropathy Vitamin B12 deficiency Cerebrovascular disease, arteriosclerotic, 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 ([facility]) Type 2 diabetes, controlled, with peripheral neuropathy ([facility]) Type 2 diabetes mellitus with peripheral vascular disease ([facility]) Persistent proteinuria 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 Complex sleep apnea syndrome Nocturnal hypoxemia Type 2 diabetes mellitus with stage 3b chronic kidney disease, without long-term current use of insulin ([facility]) Sleep apnea treated with nocturnal BiPAP PAD (peripheral artery disease) ([facility]) Hyperparathyroidism, secondary renal ([facility]) Diabetes mellitus due to underlying condition with severe nonproliferative diabetic retinopathy with macular edema, unspecified eye ([facility]) 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 kidney disease ([facility]) Esophageal obstruction S/P angioplasty with stent 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, without long-term current use of insulin ([facility]) Chronic kidney disease, stage 3b ([facility]) Non-pressure chronic ulcer of other part of right foot with unspecified severity ([facility]) Acquired absence of right great toe ([facility]) 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, with fat layer exposed ([facility]) History of UT (myocardial infarction) Trigger ring finger of left hand Full code status Calculus of gallbladder without cholecystitis without obstruction Stasis ulcer ([facility]) MRSA (methicillin resistant Staphylococcus aureus) Orthostatic hypotension Pressure injury of buttock, stage 2 ([facility]) Past Medical History: Diagnosis Date Amputated toe ([facility]) 05/06/11 2nd toe right foot- no osteomyelitis Atrial fibrillation ([facility]) Atrial fibrillation ([facility]) Atrial fibrillation ([facility]) B12 deficiency 12/21/2015 Background diabetic retinopathy(362.01) Cervical spinal stenosis 2007 Cervical spondylosis with myelopathy Cervical spondylosis with myelopathy 2008 Chronic atrial fibrillation ([facility]) 01/12/2015 Closed fracture of unspecified part of vertebral column without mention of spinal cord injury 1989 T8 Degeneration of lumbosacral intervertebral disc Degeneration of lumbosacral intervertebral disc Degeneration of thoracic intervertebral disc Degeneration of thoracic intervertebral disc Degenerative skin disorder Necrobiosis lipoidica Depressive disorder, not elsewhere classified Depressive disorder, not elsewhere classified Diabetic foot ulcer ([facility]) 04/27/2011 Displacement of cervical intervertebral disc without myelopathy 2008 C4-5 DM neuropathy, type II diabetes mellitus ([facility]) 07/30/2012 DM type 2 causing renal disease ([facility]) DIABETES TYPE II W RENAL MANIFEST DM type 2, goal A1c below 7 DM type 2, not at goal ([facility]) 1998 Dyslipidemia, goal LDL below 100 01/20/2009 [...] Mixed dyslipidemia Morbid obesity, BMI not known ([facility]) Other B-complex deficiencies Other hammer toe (acquired) 11/13/2004 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 Paroxysmal SVT (supraventricular tachycardia) 04/23/2013 Perforation of esophagus 01/21/08 PERFORATED ESOPHAGUS 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 ([facility]) 07/30/2012 Peripheral sensory neuropathy 01/12/2015 Plantar fibromatosis 04/20/2005 Primary localized osteoarthrosis, lower leg OA of knees PVD (peripheral vascular disease) ([facility]) 11/09/2011 PVD (peripheral vascular disease) ([facility]) 11/09/2011 In a combination Rupture of flexor tendons of hand and wrist 1998 severed tendon index finger right hand Severe nonproliferative diabetic retinopathy(362.06) bilateral Spinal stenosis of lumbar region without neurogenic claudication Spinal stenosis of lumbar region without neurogenic claudication Toe osteomyelitis, right ([facility]) 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[facility]) 01/12/2015 Venous insufficiency Venous stasis of lower [...] DIAGNOSTIC performed by KAUSHAL WHITE at [facility] EGD, FLEXIBLE, DIAGNOSTIC 01/04/2008 UPPER GI ENDOSCOPY DIAGNOSTIC performed by KAUSHAL WHITE at [facility] EGD, FLEXIBLE, DIAGNOSTIC 03/21/2008 UPPER GI ENDOSCOPY DIAGNOSTIC performed by KAUSHAL WHITE at [facility] EGD, FLEXIBLE, TRANSENDOSCOPIC DILATION <30MM 01/04/2008 UPPER GI ENDOSCOPY BALLOON DILATION LESS THAN 30MM performed by KAUSHAL WHITE at [facility] EXPLORATION OF ABDOMEN 01/21/2008 EXPLORATORY LAPAROTOMY performed by KAUSHAL WHITE at OR [facility] FORM SKIN PEDICLE, TRUNK 02/14/1956 to right forearm INFORMATION Gum surgery/cyst removed INFORMATION 02/13/2005 ORAL CYST REMOVAL INJECTION OF EYE DRUG Right 12/30/2021 # 1 Avastin OD, Dr. Hodge INJECTION OF EYE DRUG Right 04/01/2022 # 2 Avastin OD, Dr. Hodge INSERT/REPLACE PACEMAKER,ATRIAL/VENTRICULAR 04/11/2013 04/11/2013 placement of siingle-chamber pacemaker via left subclavian approach [facility] DR.Mar Garcia - symptomatic bradycardia LAPAROSCOPE PROCEDURE, LIVER 09/20/2007 UNLISTED LAPAROSCOPIC PROCEDURE LIVER performed by KAUSHAL WHITE at [facility] LAPAROSCOPIC GASTRIC BYPASS/BHUPINDER-EN-Y 09/20/2007 LAPAROSCOPIC GASTRIC RESTRICTIVE BYPASS BHUPINDER EN Y performed by KAUSHAL WHITE at [facility] LASER SURGERY OF INNER EYE STRANDS Bilateral "about 20- 25 years ago" MICROSURGERY ADD-ON 05/07/2010 MICROSURGICAL SURGERY REQUIRING MICROSCOPE LISTED SEPARATELY performed by GAVIN BHARDWAJ at [facility] MRI FOOT WO CONTRAST 04/06/2011 Osteomyelitis of the distal phalanx of the 2nd digit. Reactive edema versus early osteomyelitis of the 2nd middle phalanx NECK SPINE FUSION (CERV, BELOW C2) 09/05/2008 ARTHRODESIS SPINE ANTERIOR CERVICAL performed by GAVIN BHARDWAJ at [facility] NECK SPINE FUSION (CERV, BELOW C2) 05/07/2010 ARTHRODESIS SPINE ANTERIOR CERVICAL performed by GAVIN BHARDWAJ at [facility] NECK SPINE FUSION (CERV, BELOW C2) 05/07/2010 ARTHRODESIS SPINE POSTERIOR CERVICAL performed by GAVIN BHARDWAJ at [facility] OTHER (INFORMATION) ACT 112 SIGNED 06/11/20 DR. HODGE OTHER (INFORMATION) Bilateral AVASTIN OU CONSENT DR. HODGE/MITESH EXP. 12/30/22 PACEMAKER INSERTION PER 01/18/2023 Dr. Rodriguez [facility] PARTIAL AMPUTATION OF TOE Right 12/2020 3rd toe and release tendon of other toes at the same time. REMOVAL OF TONSILS, AGE 12+ REMOVE ADDED VERTEBRAL SEG, NECK 05/07/2010 VERTEBRAL CORPECTOMY CERVICAL EACH ADDITIONAL LEVEL performed by GAVIN BHARDWAJ at [facility] REMOVE CATARACT, INSERT LENS PROSTH Right 03/10/2022 right EXTRACAPSULAR CATARACT REMOVAL WITH INTRAOCULAR LENS performed by Liang Marshall MD at [facility] REMOVE CATARACT, INSERT LENS PROSTH Left 03/24/2022 left EXTRACAPSULAR CATARACT REMOVAL WITH INTRAOCULAR LENS performed by Liang Marshall MD at OR [facility] REMOVE NECK SPINE DISK, SINGLE 09/05/2008 DISKECTOMY ANTERIOR CERVICAL performed by GAVIN BHARDWJA at [facility] REMOVE NECK SPINE DISK, SINGLE 05/07/2010 DISKECTOMY ANTERIOR CERVICAL performed by GAVIN BHARDWAJ at [facility] REMOVE VERTEBRAL BODY, NECK, SINGLE 05/07/2010 VERTEBRAL CORPECTOMY ANTERIOR CERVICAL performed by GAVIN BHARDWAJ at [facility] REPAIR FINGER/HAND TENDON, EACH & right index finger tendon transfer from toe - [facility] SPINE FIX DEV, ANT, 4-7 SEG, INSERT 05/07/2010 ANTERIOR INSTRUMENTATION 4 TO 7 VERTEBRAL SEGMENTS performed by GAVIN BHARDWAJ at [facility] SPINE SEG FIX, POST, 3-6 SEG, INSERT 05/07/2010 POSTERIOR SPINE SEGMENTAL INSTRUMENTATION 3 TO 6 PSF performed by GAVIN BHARDWAJ at 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 Review of Systems: Constitutional ROS: No change in weight, less weakness,less fatigue and No fevers, sweats, or chills [...] No palpitations and No syncope Gastrointestinal ROS: see HPI Musculoskeletal/Extremities ROS: see HPI Skin/Integumentary ROS: see HPI Neurologic ROS: No headaches and No seizures Psychiatric ROS: No depression, No anxiety and No psychosis Sleep: No sleep disorders OBJECTIVE: PHYSICALEXAM: I reviewed the most recent facilities vitals. General: alert, mild distress, well nourished and well developed Eye [...] sounds and no masses or organomegaly Extremities: ulcers right leg and foot dressing in place. Followed by wound speciality .no edema, no clubbing, no cyanosis Neuro Exam: alert with fluent speech, Skin: skin color, texture, turgor are normal, ASSESSMENT: Cellulitis of right leg (Primary) Completed antibiotic Continue with current Rx 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, with fat layer exposed, unspecified part of foot (HCC) Followed by wound specialty Continue with current dressings 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 kidney disease (HCC) Stable BP and CKD Continue with Torsemide 40mg BID and Toprol XL 25mg daily Slow transit constipation Will obtain xray of abdomen in SNF Will give Fleet enema now Continue Miralax BID and Senna S two BID Will follow closely PLAN: Reviewed CBC, BMP, Lytes and Continue present medication(s):as ordered. Shelter Home Treatment Given: as above H&H and BMP on Monday Electronically signed by: Ryanne Ramos PA-C Over 35 minutes were spent in this visit more than half the time was spent counselling or coordinating care. documented in this encounter Plan of Treatment Upcoming Encounters Date Type Department Care Team (Late st Contact Info) Description 07/05/2023 5:30 PM EDT Anticoagulation Pharmacy Call Center [phone] [facility] [place] [address] [facility] [address] [facility] [place] [address] 11/20/2023 2:00 PM EDT Office Visit Nephrology [address] [place] [address] ZemaMarycarmen lindsey PA-C [address] [place] [address] 02/20/2024 12:30 PM EST Nurse Only Ancillary [address] [place] [address] [place], Nurse [address] [place] [address] Scheduled Procedures Name Priority Associated Diagnoses Date/Ti [...] Screening 02/17/2024 02/16/2023 CKD HGB USE SMARTSET 07779 07/02/202407/02, 07/03/2023, 06/28/2023, Additional history exists CKD PHOS USE SMARTSET 59506 07/02/202406/14, 11/16/2022, 09/29/2021, Additional history exists DTaP,Tdap,and [...] this encounter Medical Devices Implanted Type Area Cigarette Making Machine Catcher Device Identifier Shelf Expiration Date Model / Serial / Lot Shaft Fibula 6cm [id number] - [id number] Implanted:Qty: 1 on 09/05/2008 at [facility] Tissue - Human N/A: Spine Cervical MUSCULOSKELETAL TRANSPLANT FND 04/20/2010 [id number] / [id number] / Stent Eso Gw 22x70 [id number] - [id number] Implanted:Qty: 1 on 01/21/2008 at OR [facility] N/A: Esophagus [employer] 04/12/2009 [id number] / / [id number] Depuy Uniplate 32 Implanted:Qty: 1 on 09/05/2008 at OR [facility] N/A: Spine Cervical TAMMY [employer] TAMMY DEPUY 1897--302 / / Depuy Uniplate Screw 14mm Implanted:Qty: 2 on 09/05/2008 at OR [facility] N/A: Spine Cervical TAMMY [employer] TAMMY DEPUY 1897-06-017 / / Depuy Lordotic Bengal Cage Implanted:Qty: 1 on 05/07/2010 at OR [facility] N/A: Neck 1773-06-146 / [id number] / Plate Zach 3 Level Ti 54mm - [id number] Implanted:Qty: 1 on 05/07/2010 at OR [facility] N/A: Neck JNJ : DEPUY SPINE [id number] / / Screw Zach Const St Ti 14mm - [id number] Implanted:Qty: 4 on 05/07/2010 at OR [facility] N/A: Neck JNJ : DEPUY SPINE [id number] / / Screw 3.5x14 Mntr Fa [id number] - [id number] Implanted:Qty: 8 on 05/07/2010 at OR [facility] N/A: Spine Cervical JNJ : [employer] [id number] / / [id number] - [id number] Implanted:Qty: 1 on 05/07/2010 at [facility] N/A: Spine Cervical JNJ : [employer] [id number] / / Screw Inner Mntr [id number] - [id number] Implanted:Qty: 8 on 05/07/2010 at [facility] N/A: Spine Cervical JNJ : [employer] [id number] / / Envista Intraocular Lens Implanted:Qty: 1 on 03/10/2022 by iLang Marshall MD at OR [facility] Right: Eye [employer]USCH [employer] LOMB 08/13/2023 [id number] / [id number] / [id number] Envista Intraocular Lens Implanted:Qty: 1 on 03/24/2022 by Liang Marshall MD at OR [facility] Left: Eye BAUSCH [employer] LOMB 07/13/2024 [id number] / [id number] / [id number] documented as of this encounter Visit Diagnoses Diagnosis Cellulitis of right leg- Primary Cellulitis and abscess of leg, except foot 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, with fat layer exposed, unspecified part of foot (HCC) 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 kidney disease (HCC) Slow transit constipation documented in this encounter Advance Directives Documents on File Type Date Recorded Patient Networker Expl srinivas ARREOLA 01/26/2021 [place] [facility] [...] Power of Attor andrew? No Care Teams Water Aerobics Instructor Relationship Specialty Start Date End Date Jocelyne Desai DO [address] [place] [address] [place] [address] PCP - General Internal Medicine 11/09/16 documented as of this encounter
--- OUTSIDE RECORDS SUMMARY | 2023-08-01 09:35 | External Medical Summary | Summary of Care ---
Author Name Unknown Organization [facility] Address [address] [facility] [place] [address] Phone [phone] Care Team Providers Care User Experience Lead Name Role Phone Lloyd Jocelyne Briggs DO Primary Care Provider + [phone] Reason for Visit * Reason Comments Dosage Adjustment Via Phone (anticoag Cl inic) Encounter Details Date Type Department Care Team (Latest Contact Info) Description 07/03/2023 5:30 PM EDT Anticoagulation Pharmacy Call Center [address] [place] [address] [facility] 58 60 [place] [address] Chronic atrial fibrillation (HCC)* Allergies No known [...] connectivity [facility] for wound care [phone] Televideo if needed. Problem Noted Date Diagnosed [...] up with podiatry,. Letter in chart from [facility] podiatry they were unable to [...] ICD-10 update of inactive term PLATT RESEARCH OTHER*[id number] 02/20/2007 ADVANCE DIRECTIVE INFORMATION 01/19/2005 Overview: Yes, [...] office early next week will need [facility] provider recheck Multiple and open wound [...] 11/17/19 23 LUMBAGO 12/24/2002 05/09/2007 LOC PRIM [id number] 12/24/200208/13 DEGENERATIVE SKIN DISORD 12/24/2002 VERTEBRAL FX [...] MCG/0.3 mL, 12 YRS AND ABOVE, IM ([facility] 11/16/2022 Covid-19, Mrna, Lnp-s, Pf, B ivalent, [...] this encounter Progress Notes * Estefania Palacios, [facility] - 07/03/2023 1:06 PM EDT Images from the original note were not included. Medication Therapy Disease Management - Anticoagulation Patient: Lg Colby Radhagagandeep | : 1950 Group Home/SNF Patient Anticoagulation Encounter Patient is a resident at: [facility] -- Fax sent to number listed above detailing plan of care below. Please notify clinic with any unusual brusing or bleeding, N/V/D, medication or diet changes or anymissed or extra doses of Coumadin. Subjective Patient-Reported Symptoms:Continue Lovenox 90mg daily until INR in range Objective Current Warfarin Dose As of 07/03/2023 Warfarin maintenance plan: 3 mg (3 mg x 1) every Sun, Tue, Mon; 1.5 mg (3 mg x 0.5) all other days INR Result As of 07/03/2023 INR goal: 2.0-3.0 INR used for dosin.5 (07/03/2023) Assessment & Plan Warfarin Plan As of 07/03/2023 Full warfarin instructions: 07/02: 9 mg; 07/03: 4.5 mg; Otherwise 3 mg every Sun, Tue, Mariel; 1.5 mg all other days Next INR check: 07/05/2023 Repeat PT/INR in 2 day(s) Weekly dose: not changed Additional Dosing Information: Description [facility] Nurses; fax - [phone] ([facility]) Estefania Palacios [facility] Clinical Pharmacist 07/03/2023, 1:07 PM documented in this encounter Plan of Treatment Upcoming Encounters Date Type Department Care Team (Late st Contact Info) Description 11/20/2023 2:00 PM EDT Office Visit Nephrology [address] [place] [address] ZeMarycarmen alan PA-C [address] [place] [address] 02/20/2024 12:30 PM EST Nurse Only Ancillary [address] [place] [address] [place], Nurse Annual [address] [place] [address] Scheduled Procedures Name Priority Associated Diagnoses Date/Ti [...] Additional history exists CKD PHOS USE SMARTSET 06564 11/17/2023 10/0 05/2022, 09/29/2021, 05/12/2021, Additional history exists Diabetic Foot Exam 11/17/2023 11/16/2022, 0 05/05/2021, 11/22/2017, Additional history exists GFR 12/29/2023 06/28/2023, 02/13, 01/17/2023, Additional history exists Depression Screening 02/17/2024 02/16/2023 CKD HGB USE SMARTSET 65903 07/02/202407/02, 07/03/2023, 06/28/2023, Additional history exists DTaP,Tdap,and Td Vaccines (3 [...] encounter Medical Devices Implanted Type Area Machine Iii Coremaker Device Identifier Shelf Expiration Date Model / Serial / Lot Shaft Fibula 6cm 764189 - [id number] Implanted:Qty: 1 on 09/05/2008 at OR [facility] Tissue - Human N/A: Spine Cervical MUSCULOSKELETAL TRANSPLANT FND 04/20/2010 [id number] / [id number] 0P / Stent Eso Gw 22x70 [id number] - [id number] Implanted:Qty: 1 on 01/21/2008 at OR [facility] N/A: Esophagus [employer] INC 04/12/2009 33081-746 / / [id number] Depuy Uniplate 32 Implanted:Qty: 1 on 09/05/2008 at OR [facility] N/A: Spine Cervical TAMMY & TAMMY DEPUY 1896-03-302 / / Depuy Uniplate Screw 14mm Implanted:Qty: 2 on 09/05/2008 at OR [facility] N/A: Spine Cervical TAMMY & TAMMY DEPUY 189--017 / / Depuy Lordotic Bengal Cage Implanted:Qty: 1 on 05/07/2010 at OR [facility] N/A: Neck 1773--146 / [id number] / Plate Zach 3 Level Ti 54mm - [id number] Implanted:Qty: 1 on 05/07/2010 at OR [facility] N/A: Neck JNJ : DEPUY SPINE [id number] / / Screw Zach Const St Ti 14mm - [id number] Implanted:Qty: 4 on 05/07/2010 at OR [facility] N/A: Neck JNJ : DEPUY SPINE [id number] / / Screw 3.5x14 Mntr Fa [id number] - [id number] Implanted:Qty: 8 on 05/07/2010 at OR [facility] N/A: Spine Cervical JNJ : ETHICON CARDIOVATIONS [id number] / / Jarrell [id number] - [id number] Implanted:Qty: 1 on 05/07/2010 at OR [facility] N/A: Spine Cervical JNJ : ETHICON CARDIOVATIONS [id number] / / Screw Inner Mntr [id number] - [id number] Implanted:Qty: 8 on 05/07/2010 at OR [facility] N/A: Spine Cervical JNJ : ETHICON CARDIOVATIONS [id number] / / Envista Intraocular Lens Implanted:Qty: 1 on 03/10/2022 by Liang Marshall MD at OR [facility] Right: Eye BAUSCH & LOMB 08/13/2023 [id number] / [id number] / [id number] Envista Intraocular Lens Implanted:Qty: 1 on 03/24/2022 by Liang Marshall MD at OR [facility] Left: Eye BAUSCH & LOMB 07/13/2024 [id number] / [id number] / [id number] documented as of this encounter Visit Diagnoses Diagnosis Chronic atrial fibrillation (HCC)- Primary Atrial fibrillation documented in this encounter Advance Directives Documents on File Type Date Recorded Patient Staff Technologist Expl srinivas ARREOLA 01/26/2021 [place] OR [facility] FOR LIFE-SUSTAINING [...] Power of Attor andrew? No Care Teams User Experience Lead Relationship Specialty Start Date End Date Jocelyne Desai DO [address] [place] [address] [place] [address] PCP - General Internal Medicine 11/09/16 documented as of this encounter"
--- OUTSIDE RECORDS SUMMARY | 2023-08-01 09:35 | External Medical Summary | Summary of Care ---
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 Problem Noted Date Diagnosed [...] up with podiatry,. Letter in chart from [facility] podiatry they were unable to get in [...] ICD-10 update of inactive term PLATT RESEARCH OTHER*[id number] 02/20/2007 ADVANCE DIRECTIVE INFORMATION 01/19/2005 Overview: Yes, [...] [place] office early next week will need [facility] provider recheck Multiple and open [...] 11/17/19 23 LUMBAGO 12/24/2002 05/09/2007 LOC PRIM [id number] 12/24/200208/13 DEGENERATIVE SKIN DISORD 12/24/2002 VERTEBRAL FX [...] MCG/0.3 mL, 12 YRS AND ABOVE, IM ([employer]) 11/16/2022 Covid-19, Mrna, Lnp-s, Pf, B ivalent, [...] 5:30 PM EDT Anticoagulation Pharmacy Call Center [address] [place] [address] [facility] 58 60 [facility] [place] [address] Chronic atrial fibrillation (HCC)* 07/05/2023 5:30 PM EDT Anticoagulation Pharmacy Call Center [address] [facility] [place] [address] [facility] 58 60 [facility] [place] [address] 11/20/2023 2:00 PM EDT Office Visit Nephrology [address] [place] [address] Marycarmen Kowalski PA-C [address] [place] [address] 02/20/2024 12:30 PM EST Nurse Only Ancillary [address] [place] [address] [place], Nurse Annual [address] [place] [address] Scheduled Procedures Name Priority Associated Diagnoses Date/Ti [...] Screening 02/17/2024 02/16/2023 CKD HGB USE SMARTSET 60399 07/02/202407/02, 07/03/2023, 06/28/2023, Additional history exists CKD PHOS USE SMARTSET 05861 07/02/202406/14, 11/16/2022, 09/29/2021, Additional history exists DTaP,Tdap,and [...] this encounter Medical Devices Implanted Type Area Storage Solutions Architect Device Identifier Shelf Expiration Date Model / Serial / Lot Shaft Fibula 6cm 115291 - [id number] Implanted:Qty: 1 on 09/05/2008 at [place] [facility] Tissue - Human N/A: Spine Cervical MUSCULOSKELETAL TRANSPLANT FND 04/20/2010 [id number] / [id number] 0P / Stent Eso Gw 22x70 12350-278 - [id number] Implanted:Qty: 1 on 01/21/2008 at OR [facility] N/A: Esophagus ALVEOLUS INC 04/12/2009 85674-621 / / [id number] Depuy Uniplate 32 Implanted:Qty: 1 on 09/05/2008 [...] [facility] N/A: Neck 1773-06-146 / 1773-06-146 / Plate Zach 3 Level Ti 54mm - [id number] Implanted:Qty: 1 on 05/07/2010 at OR [facility] N/A: Neck JNJ : DEPUY SPINE [id number] 54 / / Screw Zach Const St Ti 14mm - [id number] Implanted:Qty: 4 on 05/07/2010 at OR [facility] N/A: Neck JNJ : DEPUY SPINE [id number] 14 / / Screw 3.5x14 Mntr Fa [id number] - [id number] Implanted:Qty: 8 on 05/07/2010 at OR [facility] N/A: Spine Cervical JNJ : ETHICON CARDIOVATIONS [id number] / / Jarrell [id number] - [id number] Implanted:Qty: 1 on 05/07/2010 at OR [facility] N/A: Spine Cervical JNJ : ETHICON CARDIOVATIONS [id number] / / Screw Inner Mntr [id number] - [id number] Implanted:Qty: 8 on 05/07/2010 at OR [facility] N/A: Spine Cervical JNJ : ETHICON CARDIOVATIONS [id number] / / Envista Intraocular Lens Implanted:Qty: 1 on 03/10/2022 by Liang Marshall MD at OR [facility] [address] Right: Eye BAUSCH & LOMB 08/13/2023 [id number] / [id number] / [id number] Envista Intraocular Lens Implanted:Qty: 1 on 03/24/2022 by Liang Marshall MD at OR [facility] [address] Left: Eye BAUSCH & LOMB 07/13/2024 [id number] / [id number] / [id number] documented as of this encounter Visit Diagnoses Diagnosis Chronic atrial fibrillation (HCC)- Primary Atrial fibrillation Cellulitis of right leg- Primary Cellulitis and abscess of leg, except foot 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, with fat layer exposed, unspecified part of foot ([facility]) MRSA (methicillin resistant Staphylococcus aureus) Methicillin resistant Staphylococcus aureus in conditions classified elsewhere and of unspecified site Non-pressure chronic ulcer of other part of right foot with unspecified severity ([facility]) Type 2 diabetes, controlled, with peripheral neuropathy ([facility]) Type II or unspecified type diabetes mellitus with neurological manifestations, not stated as uncontrolled Type 2 diabetes mellitus with stage 3b chronic kidney disease, without long-term current use of insulin ([facility]) Slow transit constipation documented in this encounter Advance Directives Documents on File Type Date Recorded Patient Blunger Loader Torres ARREOLA 01/26/2021 [place] OR [facility] FOR LIFE-SUSTAINING [...] Power of Attor andrew? No Care Teams Deputy Attorney General Relationship Specialty Start Date End Date Jocelyne Desai DO [address] [place] [address] [place] [address] PCP - General Internal Medicine 11/09/16 documented as of this encounter
--- OUTSIDE RECORDS SUMMARY | 2023-08-01 09:35 | External Medical Summary | Summary of Care ---
Author Name Unknown Organization [facility] Address [address] [facility] [place] [address] Phone [phone] Care Team Providers Care Obiee Obia Solution Architect Name Role Phone DesaiElissaJocelynejohn Briggs Primary Care Provider + [phone] Encounter Details Date Type Department Care Team (Late st Contact Info) Description 07/05/2023 Orders Only Lab Mobile Phlebotomy [facility] [address] [place] [address] Primitivo Heck MD [address] [place] [address] [place] [address] A-fib ([facility])* Allergies No known active allergiesdocumented as of [...] [facility] for wound care [phone] Televideo if needed. Problem Noted Date Diagnosed [...] with podiatry,. Letter in chart from [facility] podiatry they were unable to [...] 11/27/2018 H/O gastric bypass 11/27/2018 Overview: RYGB retirement current use of 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 1 Status [...] ICD-10 update of inactive term PLATT RESEARCH OTHER*[id number] 02/20/2007 ADVANCE DIRECTIVE INFORMATION 01/19/2005 Overview: Yes, [...] 11/17/19 23 LUMBAGO 12/24/2002 05/09/2007 LOC PRIM [id number] 12/24/200208/13 DEGENERATIVE SKIN DISORD 12/24/2002 VERTEBRAL FX [...] MCG/0.3 mL, 12 YRS AND ABOVE, IM ([employer]) 11/16/2022 Covid-19, Mrna, Lnp-s, Pf, B ivalent, [...] Team (Late st Contact Info) Description 07/05/2023 5:10 AM EDT Laboratory Lab Mobile Phlebotomy [facility] [address] [place] [address] [place] [address] Arrived 07/05/2023 5:30 PM EDT Anticoagulation Pharmacy Call Center [address] [place] [address] [facility] 58 60 [facility] [place] [address] 11/20/2023 2:00 PM EDT Office Visit Nephrology [address] [place] [address] Marycarmen Kowalski PA-C 200 [facility] [place] [address] 02/20/2024 12:30 PM EST Nurse Only Ancillary [address] [place] [address] [place], Nurse [address] [place] [address] Scheduled Orders Name Type Priority Associated Diagnoses Orde r Schedule PT INR Lab Routine A-fib (HCC) Expected: 07/05/2023, Expires: Scheduled Procedures Name Priority Associated Diagnoses Date/Ti [...] Screening 02/17/2024 02/16/2023 CKD HGB USE SMARTSET 51536 07/02/202407/02, 07/03/2023, 06/28/2023, Additional history exists CKD PHOS USE SMARTSET 65865 07/02/202406/14, 11/16/2022, 09/29/2021, Additional history exists DTaP,Tdap,and [...] this encounter Medical Devices Implanted Type Area Account Consultant Device Identifier Shelf Expiration Date Model / Serial / Lot Shaft Fibula 6cm [id number] - [id number] Implanted:Qty: 1 on 09/05/2008 at OR [facility] Tissue - Human N/A: Spine Cervical MUSCULOSKELETAL TRANSPLANT FND 04/20/2010 [id number] / [id number] 0P / Stent Eso Gw 22x70 19112-449 - [id number] Implanted:Qty: 1 on 01/21/2008 at OR [facility] N/A: Esophagus AL[employer]OLUS INC 04/12/2009 29733-346 / / [id number] Depuy Uniplate 32 Implanted:Qty: 1 on 09/05/2008 [...] Plate Zach 3 Level Ti 54mm - [id number] Implanted:Qty: 1 on 05/07/2010 at OR [facility] N/A: Neck JNJ : DEPUY SPINE [id number] 54 / / Screw Zach Const St Ti 14mm - [id number] Implanted:Qty: 4 on 05/07/2010 at OR [facility] N/A: Neck JNJ : DEPUY SPINE [id number] 14 / / Screw 3.5x14 Mntr Fa [id number] - [id number] Implanted:Qty: 8 on 05/07/2010 at OR [facility] N/A: Spine Cervical JNJ : ETHICON CARDIOVATIONS [id number] / / Jarrell [id number] - [id number] Implanted:Qty: 1 on 05/07/2010 at OR [facility] N/A: Spine Cervical JNJ : ETHICON CARDIOVATIONS [id number] / / Screw Inner Mntr [id number] - [id number] Implanted:Qty: 8 on 05/07/2010 at OR [facility] N/A: Spine Cervical JNJ : ETHICON CARDIOVATIONS [id number] / / Envista Intraocular Lens Implanted:Qty: 1 on 03/10/2022 by Liang Marshall MD at OR [facility] Right: Eye BAUSCH & LOMB 08/13/2023 [id number] / [id number] / [id number] Envista Intraocular Lens Implanted:Qty: 1 on 03/24/2022 by Liang Marshall MD at OR [facility] Left: Eye BAUSCH & LOMB 07/13/2024 [id number] / [id number] / [id number] documented as of this encounter Visit Diagnoses Diagnosis A-fib (HCC)- Primary Atrial fibrillation documented in this encounter Advance Directives Documents on File Type Date Recorded 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 No Care Teams Obiee Obia Solution Architect Relationship Specialty Start Date End Date Jocelyne Desai DO [address] [place] [address] [place] [address] PCP - General Internal Medicine 11/09/16 documented as of this encounter
--- OUTSIDE RECORDS SUMMARY | 2023-08-01 09:36 | External Medical Summary ---
Author Name Unknown Address Unknown Organization K0G:[facility] [address] [place] [address] Laboratory Report Ordering Provider Test Date Status MOE LOPEZ 07/03/2023 05:48:00 Final Warfarin Therapy
INR: 2 .0-3.0 conventional anticoagulation
INR: 2.5- 3.5 high intensity anticoagulation Observation Date Value Abnormality Reference (Units ) Status PT 07/03/2023 05:48:00 18.1 Above high normal 11 .6-15.2 (seconds) Final INR 07/03/2023 05:48:00 1.5 Above high normal 0. 8-1.2 Final Performing Location [facility] [address] [place] [address]
--- OUTSIDE RECORDS SUMMARY | 2023-08-01 09:36 | External Medical Summary | Summary of Care ---
Author Name Unknown Organization [facility] Address [address] [facility] [place] [address] Phone [phone] Care Team Providers Care Alarm Signal Operator Name Role Phone Jocelyne Desai DO Primary Care Provider + [phone] Encounter Details Date Type Department Care Team (Late st Contact Info) Description 07/03/2023 Orders Only PATIENT PORTAL DO NOT DELETE THIS DEPT USED BY [place] [id number] Allergies No known active allergiesdocumented as of [...] different from the original. Good connectivity [facility] for wound care [phone] Televideo if needed. Problem Noted Date Diagnosed Date MRSA (methicillin resistant Staphylococcus aureu s) 06/30/2023 Orthostatic hypotension 06/30/2023 Pressure injury of buttock, stage 2 06/30/2023 Full code status 06/28/2023 Calculus of gallbladder with out cholecystitis without obstruction 06/28/2023 Stasis ulcer 06/28/2023 History of AK (myocardial infarction) 11/09/2021 Trigger [...] ICD-10 update of inactive term PLATT RESEARCH OTHER*[id number] 02/20/2007 ADVANCE DIRECTIVE INFORMATION 01/19/2005 Overview: Yes, [...] [place] office early next week will need [facility] provider recheck Multiple and open wound [...] 11/17/19 23 LUMBAGO 12/24/2002 05/09/2007 LOC PRIM [id number] 12/24/200208/13 DEGENERATIVE SKIN DISORD 12/24/2002 VERTEBRAL FX [...] MCG/0.3 mL, 12 YRS AND ABOVE, IM ([facility] 11/16/2022 Covid-19, Mrna, Lnp-s, Pf, B [...] Care Team (Late st Contact Info) Description 07/03/2023 5:30 PM EDT Anticoagulation Pharmacy Call Center [phone] [facility] [place] [address] [facility], [facility] [place] [address] [facility] [place] [address] 11/20/2023 2:00 PM EDT Office Visit Nephrology [address] [place] [address] ZemaitisMarycarmen PA-C [address] [place] [address] 02/20/2024 12:30 PM EST Nurse Only Ancillary [address] [place] [address] [place], Nurse Annual [address] [place] [address] Scheduled Procedures Name Priority Associated Diagnoses Date/Ti me COLONOSCOPY FLEXIBLE PROXIMA L DIAGNOSTIC Recall Screening for colon cancer Health Maintenance Due Date Last Done Comments Cologuard 1997 Sigmoidoscopy 1997 Fecal Occult Blood Test 09/02/2009 09/02/2008, 05/04 Diabetic Eye Exam 12/30/2022 12/30/2021, , 12/28/2021, Additional history exists COVID-19 Vaccine (24 season) 2023 11/16/2022, 11/16/2021, 02/16/2021, Additional history exists HbA1c 05/18/2023 11/16/2022, 10/15, 05/13/2022, Additional history exists Albumin/Creatinine Ratio 11/17/2023 023, 05/13/2022, 09/29/2021, Additional history exists CKD PHOS USE SMARTSET 56918 11/17/2023 10/0 05/2022, 09/29/2021, 05/12/2021, Additional history exists Diabetic Foot Exam 11/17/2023 11/16/2022, 0 05/05/2021, 11/22/2017, Additional history exists GFR 12/29/2023 06/28/2023, 02/13, 01/17/2023, Additional history exists Depression Screening 02/17/2024 02/16/2023 CKD HGB USE SMARTSET 20765 06/27/202407/02, 07/03/2023, 06/28/2023, Additional history exists DTaP,Tdap,and Td [...] this encounter Medical Devices Implanted Type Area Veterinarian Device Identifier Shelf Expiration Date Model / Serial / Lot Shaft Fibula 6cm [id number] - [id number] Implanted:Qty: 1 on 09/05/2008 at OR [facility] Tissue - Human N/A: Spine Cervical MUSCULOSKELETAL TRANSPLANT FND 04/20/2010 [id number] / [id number] / Stent Eso Gw 22x70 [id number] - [id number] Implanted:Qty: 1 on 01/21/2008 at OR [facility] N/A: Esophagus [employer] 04/12/2009 [id number] / / [id number] Depuy Uniplate 32 Implanted:Qty: 1 on 09/05/2008 [...] [facility] N/A: Neck [id number] / [id number] / Plate Zach 3 Level Ti 54mm - [id number] Implanted:Qty: 1 on 05/07/2010 at OR [facility] N/A: Neck JNJ : DEPUY SPINE [id number] / / Screw Zach Const St Ti 14mm - [id number] Implanted:Qty: 4 on 05/07/2010 at OR [facility] N/A: Neck JNJ : DEPUY SPINE [id number] / / Screw 3.5x14 Mntr Fa [id number] - [id number] Implanted:Qty: 8 on 05/07/2010 at OR [facility] N/A: Spine Cervical JNJ : ETHICON [employer]ATIONS [id number] / / Jarrell [id number] - [id number] Implanted:Qty: 1 on 05/07/2010 at OR [facility] N/A: Spine Cervical JNJ : ETH[employer]ON [employer]ATIONS [id number] / / Screw Inner Mntr [id number] - [id number] Implanted:Qty: 8 on 05/07/2010 at OR [facility] N/A: Spine Cervical JNJ : ETHICON C[employer]ATIONS [id number] / / Envista Intraocular Lens Implanted:Qty: 1 on 03/10/2022 by Liang Marshall MD at OR [facility] Right: Eye [employer]OM[employer] 08/13/2023 [id number] / [id number] / [id number] Envista Intraocular Lens Implanted:Qty: 1 on 03/24/2022 by Liang Marshall MD at [facility] Left: Eye BAUSCH [employer] LOMB 07/13/2024 [id number] / [id number] / [id number] documented as of this encounter Advance Directives Documents on File Type Date Recorded Patient Director Of Safety And Security Expl anation POLST 01/26/2021 [place] OR [facility] FOR LIFE-SUSTAINING TREATMENT * No [...] Power of Attor andrew? No Care Teams Alarm Signal Operator Relationship Specialty Start Date End Date Jocelyne Desai DO [address] [place] [address] [place] [phone] PCP - General Internal Medicine 11/09/16 documented as of this encounter
--- OUTSIDE RECORDS SUMMARY | 2023-08-01 09:36 | External Medical Summary | Continuity Of Care Document ---
Author Name Unknown Address [address] [place] [address] Organization [facility] ( ) Care Team Providers Care Toy Painter Name Role Phone Primitivo Heck Primary Care Provider +[phone] VITAL SIGNS Date Time Diastolic blood pressure Systolic blood pressure Body height Body weight Temperature SpO2 Blood Sugar Pulse Respirations 77259 514 35067 9 204.00 NI 88854 514 70238 1 71 NI 22423 514 51969 7 67.00 mm[Hg] - Sitting 110.00 mm[Hg] - Sitting 204.00 NI 98.30 Oral 94.00 % 63.00/ min 18.00/min 85352 515 22133 5 202.00 NI 05794 515 58058 8 64.00 mm[Hg] - Sitting 114.00 mm[Hg] - Sitting 202.00 NI 97.80 Ear 69.00/ min 18.00/min 39995 515 42169 5 70.00 mm[Hg] - Sitting 112.00 mm[Hg] - Sitting 96.20 Ear 99.00 % 63.00/ min 20.00/min 07389 516 01261 8 56149 516 14674 5 05461 516 54565 0 202.00 NI [address] 516 86016 1 Immunizations Vaccine Date Status COVID-19 03/19/2020 Completed COVID-19 04/09/2020 Completed COVID-19 02/16/2021 Completed COVID-19 11/16/2021 Completed Hepatitis B 05/13/2002 Completed Hepatitis B 06/10/2002 Completed Hepatitis B 11/11/2002 Completed Influenza 11/27/2018 Completed Influenza 11/09/2021 Completed (PCV13)Pneumococcal 11/01/2017 Completed (PPSV23)Pneumococcal 11/27/2018 Completed Shingles 10/04/2018 Completed Tetanus 12/01/2018 Completed TDaP 10/11/2007 Completed
--- OUTSIDE RECORDS SUMMARY | 2023-08-01 09:36 | External Medical Summary | Summary of Care ---
Author Name Unknown Organization [facility] Address [address] [facility] [address] Phone [phone] Care Team Providers Care Crew Supervisor Name Role Phone Desai, Jocelynejohn Briggs Primary Care Provider + [phone] Encounter Details Date Type Department Care Team (Late st Contact Info) Description 07/02/2023 Orders Only Lab Mobile Phlebotomy [facility] [address] [place] [address] Primitivo Heck MD [address] [place] [address] [place] [address] senior care (current) use of anticoagulants*; Chronic kidney disease (CKD) Allergies No known active allergiesdocumented as of [...] connectivity [facility] for wound care [phone] Televideo if needed. 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 He has significant history DM and PVD and recommended he still follow up with podiatry,. Letter in chart from [facility] podiatry they were unable to get [...] ICD-10 update of inactive term PLATT RESEARCH OTHER*[id number] 02/20/2007 ADVANCE DIRECTIVE INFORMATION 01/19/2005 Overview: Yes, [...] office early next week will need [facility] provider recheck Multiple and open wound [...] 11/17/19 23 LUMBAGO 12/24/2002 05/09/2007 LOC PRIM [id number] 12/24/200208/13 DEGENERATIVE SKIN DISORD 12/24/2002 VERTEBRAL FX [...] MCG/0.3 mL, 12 YRS AND ABOVE, IM ([email or web address]) 11/16/2022 Covid-19, Mrna, Lnp-s, Pf, B ivalent, [...] (Late st Contact Info) Description 07/03/2023 5:30 AM EDT Laboratory Lab Mobile Phlebotomy [facility] [address] [place] [address] [place] [address] 07/03/2023 5:30 PM EDT Anticoagulation Pharmacy Call Center [address] [facility] [place] [address] [facility] [address] [facility] [place] [address] 11/20/2023 2:00 PM EDT Office Visit Nephrology [address] [place] [address] Marycarmen Kowalski PA-C [address] [facility] [place] [address] 02/20/2024 12:30 PM EST Nurse Only Ancillary [address] [place] [address] [place], Nurse [address] [place] [address] Scheduled Orders Name Type Priority Associated Diagnoses Orde r Schedule CBC WITH WBC DIFFERENTIAL Lab Routine track layer head (current) use of anticoagulants Chronic kidney disease (CKD) Expected: 07/03/2023, Expires: 07/01/2024 BASIC METABOLIC PANEL Lab Routine track layer head (current) use of anticoagulants Chronic kidney disease (CKD) Expected: 07/03/2023, Expires: 07/01/2024 RENAL FUNCTION PANEL Lab Routine track layer head (current) use of anticoagulants Chronic kidney disease (CKD) Expected: 07/03/2023, Expires: 07/01/2024 PT INR Lab Routine senior care (current) use of anticoagulants Chronic kidney disease (CKD) Expected: 07/03/2023, Expires: 07/01/2024 Scheduled Procedures Name Priority Associated Diagnoses Date/Ti [...] Additional history exists CKD PHOS USE SMARTSET 26659 11/17/2023 10/0 05/2022, 09/29/2021, 05/12/2021, Additional history exists Diabetic Foot Exam 11/17/2023 11/16/2022, 0 05/05/2021, 11/22/2017, Additional history exists GFR 12/29/2023 06/28/2023, 02/13, 01/17/2023, Additional history exists Depression Screening 02/17/2024 02/16/2023 CKD HGB USE SMARTSET 31152 06/27/202406/27, 06/28/2023, 01/17/2023, Additional history exists DTaP,Tdap,and Td Vaccines (3 [...] this encounter Medical Devices Implanted Type Area Health Analytics Consultant Device Identifier Shelf Expiration Date Model / Serial / Lot Shaft Fibula 6cm [id number] - [id number] Implanted:Qty: 1 on 09/05/2008 at OR [facility] [place] Tissue - Human N/A: Spine Cervical MUSCULOSKELETAL TRANSPLANT FND 04/20/2010 [id number] / [id number] / Stent Eso Gw 22x70 [id number] - [id number] Implanted:Qty: 1 on 01/21/2008 at OR [facility] [place] N/A: Esophagus [employer]US INC 04/12/2009 [id number] / / [id number] Depuy Uniplate 32 Implanted:Qty: 1 on 09/05/2008 [...] Plate Zach 3 Level Ti 54mm - [id number] Implanted:Qty: 1 on 05/07/2010 at OR [facility] [place] N/A: Neck JNJ : DEPUY SPINE [id number] / / Screw Zach Const St Ti 14mm - [id number] Implanted:Qty: 4 on 05/07/2010 at OR [facility] [place] N/A: Neck JNJ : DEPUY SPINE [id number] / / Screw 3.5x14 Mntr Fa [id number] - [id number] Implanted:Qty: 8 on 05/07/2010 at OR [facility] [place] N/A: Spine Cervical JNJ : ETHICON CARDIOVATIONS [id number] / / Jarrell [id number] - [id number] Implanted:Qty: 1 on 05/07/2010 at OR [facility] [place] N/A: Spine Cervical JNJ : ETHICON CARDIOVATIONS [id number] / / Screw Inner Mntr [id number] - [id number] Implanted:Qty: 8 on 05/07/2010 at OR [facility] [place] N/A: Spine Cervical JNJ : ETHICON CARDIOVATIONS [id number] / / Envista Intraocular Lens Implanted:Qty: 1 on 03/10/2022 by Liang Marshall MD at OR [facility] Right: Eye [employer]CH [employer] LOM[employer] 08/13/2023 [id number] / [id number] / [id number] Envista Intraocular Lens Implanted:Qty: 1 on 03/24/2022 by Liang Marshall MD at OR [facility] Left: Eye BAUSCH [employer] LOMB 07/13/2024 [id number] / [id number] / [id number] documented as of this encounter Visit Diagnoses Diagnosis track layer head (current) use of anticoagulants- Primary Long-term (current) use of anticoagulants Chronic kidney disease (CKD) Chronic kidney disease, unspecified documented in this encounter Advance Directives Documents on File Type Date Recorded Patient Business Sales Consultant Expl anation POLST 01/26/2021 [place] OR [facility] FOR LIFE-SUSTAINING TREATMENT * No Code [...] Power of Attor andrew? No Care Teams Crew Supervisor Relationship Specialty Start Date End Date Jocelyne Desai DO [address] [place] [address] [place] [address] PCP - General Internal Medicine 11/09/16 documented as of this encounter
--- OUTSIDE RECORDS SUMMARY | 2023-08-01 09:36 | External Medical Summary | Continuity Of Care Document ---
Author Name Unknown Address [address] [place] [address] Organization [facility] ( ) Care Team Providers Care Landscape Gardener Name Role Phone Primitivo Heck Primary Care Provider +[phone] VITAL SIGNS Date Time Diastolic blood pressure Systolic blood pressure Body height Body weight Temperature SpO2 Blood Sugar Pulse Respirations 54534 514 65093 9 204.00 NI [address]393 514 08739 1 71 NI 53742 514 05731 7 67.00 mm[Hg] - Sitting 110.00 mm[Hg] - Sitting 204.00 NI 98.30 Oral 94.00 % 63.00/ min 18.00/min 88670 515 09200 5 202.00 NI 43555 515 16996 8 64.00 mm[Hg] - Sitting 114.00 mm[Hg] - Sitting 202.00 NI 97.80 Ear 69.00/ min 18.00/min 30348 515 82373 5 70.00 mm[Hg] - Sitting 112.00 mm[Hg] - Sitting 96.20 Ear 99.00 % 63.00/ min 20.00/min 24960 516 57975 8 71600 516 37581 5 Immunizations Vaccine Date Status COVID-19 03/19/2020 Completed COVID-19 04/09/2020 Completed COVID-19 02/16/2021 Completed COVID-19 11/16/2021 Completed Hepatitis B 05/13/2002 Completed Hepatitis B 06/10/2002 Completed Hepatitis B 11/11/2002 Completed Influenza 11/27/2018 Completed Influenza 11/09/2021 Completed (PCV13)Pneumococcal 11/01/2017 Completed (PPSV23)Pneumococcal 11/27/2018 Completed Shingles 10/04/2018 Completed Tetanus 12/01/2018 Completed TDaP 10/11/2007 Completed
--- OUTSIDE RECORDS SUMMARY | 2023-08-01 09:36 | External Medical Summary ---
Author Name Unknown Address Unknown Organization K01:[facility] [address] [place] [address] Laboratory Report Ordering Provider Test Date Status MOE LOPEZ 07/03/2023 05:48:00 Final Observation Date Value Abnormality Reference (Units ) Status BUN 07/03/2023 05:48:00 53 Above high normal 6-20 (mg/dL) Final Creatinine 07/03/2023 05:48:00 2.5 Above high normal 0.6-1.2 (mg/dL) Final Glomerular filtration rate/1.73 sq M.predicted [Volume Rate/Area] in Serum, Plasma or Blood by Creatinine-based formula (CKD-EPI) 07/03/2023 05:48:00 27 Below low normal >=60 (mL/min) Final eGFR is calculated based on the CKD-EPI 2020 equation Sodium 07/03/2023 05:48:00 137 135-146 (m mol/L) Final Potassium 07/03/2023 05:48:00 5.0 3.5-5.1 (m mol/L) Final Cl 07/03/2023 05:48:00 98 98-107 (mm ol/L) Final CO2 07/03/2023 05:48:00 29 22-32 (mmo l/L) Final Anion gap 07/03/2023 05:48:00 10 7-15 (mmol /L) Final Glucose 07/03/2023 05:48:00 106 70-120 (mg /dL) Final Calcium 07/03/2023 05:48:00 8.8 8.4-10.2 ( mg/dL) Final Albumin 07/03/2023 05:48:00 3.1 Below low normal 3.8 -5.0 (g/dL) Final Phosphate 07/03/2023 05:48:00 3.7 2.5-4.8 (m g/dL) Final Performing Location LABORATORY [facility] - [address] [place] [address]
--- OUTSIDE RECORDS SUMMARY | 2023-08-01 09:36 | External Medical Summary | Summary of Care ---
Author Name Unknown Organization [facility] [address] [facility] [address] Phone [phone] Care Team Providers Care Adjunct Art History Instructor Name Role Phone Jocelyne Desai Primary Care Provider + [phone] Reason for Visit * Reason Onset Date Comments Skilled Visit 06/28/2023 Encounter Details Date Type Department Care Team (Latest Contact Info) Description 06/28/2023 12:30 PM EDT Assisted Visit [facility] [address] [place] [address] Ryanne Ramos PA-C [address] [place] [address] Cellulitis of right leg*; JORGE (acute kidney injury) ([facility]); Venous stasis ulcer of other part of right lower leg with fat layer exposed without varicose veins (HCC); 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 Take before meals. 0 06/28/2023 Active Enoxaparin Sodium 60 MG/0.6ML Injection Solution Prefilled Syringe (Lovenox) Inject 90 mg under the skin in the morning and 90 mg before bedtime. 0 06/28/2023 Active Ozempic (0.25 or 0.5 MG/DOSE) 2 MG/3ML Solution Pen-injector (Semaglutide(0.25 or 0.5MG/DOS)) Inject 0.25 mg under the skin once a week 0 06/28/2023 Active Midodrine HCl 2.5 MG Oral Tablet (Proamatine) Take 1 Tablet by mouth in the morning and 1 Tablet at noon and 1 Tablet in the evening. 0 06/28/2023 Active Soaanz 40 MG Oral Tablet (Torsemide) Take 1 Tablet by mouth in the morning and 1 Tablet before bedtime. 0 06/28/2023 Active Potassium Chloride Candi ER 20 MEQ Oral Tablet Extended Release Take 1 Tablet by mouth in the morning. 0 06/28/2023 Active Sennosides-Docusat e Sodium 8.6-50 MG Oral Tablet (Senna S) Take 1 Tablet by mouth in the morning. 0 06/28/2023 Active oxyCODONE HCl 5 MG Oral Tablet (Oxy IR) Take 1 Tablet by mouth every 6 hours as needed for Pain, Moderate or Pain, Severe. 0 06/28/2023 Active Acetaminophen 325 MG Oral Tablet (Tylenol) Take 2 Tablets by mouth every 4 hours as needed for Fever >38C(100.5F) or Pain, Mild. 0 06/28/2023 Active Cyclobenzaprine HCl 10 MG Oral Tablet (Flexeril) Take 1 Tablet by mouth every 8 hours as needed for Muscle spasms. 0 06/28/2023 Active documented as of this encounter (statuses as of 06/28/2023) Active Problems Patient Care Coordination No te Formatting of this note migh t be different from the original. Good connectivity [facility] for wound care [phone] Televideo if needed. Problem Noted Date Diagnosed Date Full code status 06/28/2023 Calculus of gallbladder [...] up with podiatry,. Letter in chart from [facility] podiatry they were unable to [...] ICD-10 update of inactive term PLATT RESEARCH OTHER*[id number] 02/20/2007 ADVANCE DIRECTIVE INFORMATION 01/19/2005 Overview: Yes, Patient instructed to provide copy of advance directive for provider to review and to be scanned into Electronic Medical Record No, Advance Directive brochure given to patient at prior appointment. SPINAL STENOSIS-LUMBAR 09/23/2002 Vitamin D deficiency Cervical spinal stenosis documented as of this encounter (statuses as of 06/28/2023) Resolved Problems Problem Noted Date Diagnosed Date Resolved Date Depression, unspecified 11/09/202104/14 Depression, unspecified 11/09/202105/2022 Cellulitis of right leg 07/13/202105/2022 Last Assessment & Plan: Suspect this could be early/localized. Will treat with 7 days antibiotic. If pt cannot be reassess by Dr. Braxton office early next week will need 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 08/31/2016 Other B-complex deficiencies 11/22/2017 Toe osteomyelitis, right Amputated toe 11/14/2018 documented as of this encounter (statuses as of 06/28/2023) Immunizations Name Administration Dates Next Due COVID-19 mRNA, LNP-s, No Pre serve, 2-Dose Series (Moderna) 03/19/2020 COVID-19 mRNA, LNP-s, No Pre serve, 2-Dose Series (Pfizer) 02/16/2021,04/09/2020,03/19/2020 COVID-19, MRNA-LNP, 23-24, P F, 30 MCG/0.3 mL, 12 YRS AND ABOVE, IM (Transcepta-ComirnatXi3) 11/16/2022 Covid-19, Mrna, Lnp-s, Pf, B ivalent, [...] Care Team (Late st Contact Info) Description 06/30/2023 8:30 AM EDT Assisted Visit [address] [place] [address] Primitivo Heck MD [facility] [place] [address] 06/30/2023 5:30 PM EDT Anticoagulation Pharmacy Call Center [address] [facility] [place] [address] [facility] 58 60 [facility] [place] [address] 11/20/2023 2:00 PM EDT Office Visit Nephrology [address] [place] [address] Marycarmen Kowalski PA-C [address] [place] [address] 02/20/2024 12:30 PM EST Nurse Only Ancillary [address] [place] [address] [place], Nurse Annual [address] [place] [address] Scheduled Procedures Name Priority Associated Diagnoses Date/Ti [...] Additional history exists CKD PHOS USE SMARTSET 05680 11/17/2023 1005/2022, 09/29/2021, 05/12/2021, Additional history exists Diabetic Foot Exam 11/17/2023 11/16/2022, 0 05/05/2021, 11/22/2017, Additional history exists GFR 12/29/2023 06/28/2023, 02/13, 01/17/2023, Additional history exists Depression Screening 02/17/2024 02/16/2023 CKD HGB USE SMARTSET 71284 06/27/202406/27, 06/28/2023, 01/17/2023, Additional history exists DTaP,Tdap,and [...] this encounter Medical Devices Implanted Type Area Axle Polisher Device Identifier Shelf Expiration Date Model / Serial / Lot Shaft Fibula 6cm [id number] - [id number] Implanted:Qty: 1 on 09/05/2008 at [place] [facility] Tissue - Human N/A: Spine Cervical MUSCULOSKELETAL TRANSPLANT FND 04/20/2010 [id number] / [id number] / Stent Eso Gw 22x70 [id number] - [id number] Implanted:Qty: 1 on 01/21/2008 at [place] [facility] N/A: Esophagus [employer] 04/12/2009 [id number] / / [id number] Depuy Uniplate 32 Implanted:Qty: 1 on 09/05/2008 [...] Plate Zach 3 Level Ti 54mm - [id number] Implanted:Qty: 1 on 05/07/2010 at [place] [facility] N/A: Neck JNJ : DEPUY SPINE [id number] / / Screw Zach Const St Ti 14mm - [id number] Implanted:Qty: 4 on 05/07/2010 at [place] [facility] N/A: Neck JNJ : DEPUY SPINE [id number] 14 / / Screw 3.5x14 Mntr Fa [id number] - [id number] Implanted:Qty: 8 on 05/07/2010 at [place] [facility] N/A: Spine Cervical JNJ : ETHICON CARDIOVATIONS [id number] / / Jarrell [id number] - [id number] Implanted:Qty: 1 on 05/07/2010 at [place] [facility] N/A: Spine Cervical JNJ : ETHICON CARDIOVATIONS [id number] / / Screw Inner Mntr [id number] - [id number] Implanted:Qty: 8 on 05/07/2010 at [place] [facility] N/A: Spine Cervical JNJ : ETHICON CARDIOVATIONS [id number] / / Envista Intraocular Lens Implanted:Qty: 1 on 03/10/2022 by Liang Marshall MD at OR [facility] Right: Eye BAUSCH & LOMB 08/13/2023 [id number] / [id number] / [id number] Envista Intraocular Lens Implanted:Qty: 1 on 03/24/2022 by Liang Marshall MD at OR [facility] Left: Eye BAUSCH & LOMB 07/13/2024 [id number] / [id number] / [id number] documented as of this encounter Visit Diagnoses Diagnosis Cellulitis of right leg- Primary Cellulitis and abscess of leg, except foot JORGE (acute kidney injury) (HCC) Acute kidney failure, unspecified Venous stasis ulcer of other part of right lower leg with fat layer exposed without varicose veins (HCC) 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 Question Answer Comments Discussion of Advance Directives occurred with: Patient Does the patient have a Living Will? No Does the patient have Health Care Power of Apprentice Stylist? No Code Status History Code Status Date Activated Date Inactivated Comments No Code 03/10/2022 7:41 AM 03/10/2022 2:02 PM This order reflects the patients wishes and were consensually agreed upon. Question Answer Comments Discussion of Advance Directives occurred with: Patient Does the patient have a Living Will? No Does the patient have Health Care Power of Apprentice Stylist? No Full Code 05/07/2010 8:55 AM 05/11/2010 9:01 PM This order reflects the patients wishes and were consensually agreed upon. Question Answer Comments Discussion of Advance Directives occurred with: Patient Does the patient have a Living Will? No Does the patient have Health Care Power of Apprentice Stylist? No Full Code 05/07/2010 6:07 AM 05/07/2010 [...] the patient have Health Care Power of Apprentice Stylist? No Care Teams Adjunct Art History Instructor Relationship Specialty Start Date End Date Jocelyne Desai DO [address] [place] [address] [place] [address] PCP - General Internal Medicine 11/09/16 documented as of this encounter
--- OUTSIDE RECORDS SUMMARY | 2023-08-01 09:36 | External Medical Summary | Summary of Care ---
Author Name Unknown Organization [facility] Address [address] [facility] [place] [address] Phone [phone] Care Team Providers Care Visual Merchandiser Name Role Phone DesaiElissaJocelynejohn Cunninghame DO Primary Care Provider + [phone] Reason for Visit * Reason Comments Dosage Adjustment Via Phone (anticoag Cl inic) Encounter Details Date Type Department Care Team (Latest Contact Info) Description 06/30/2023 5:30 PM EDT Anticoagulation Pharmacy Call Center [address] [facility] [place] [address] [facility] [address] [place] [address] Chronic atrial fibrillation (HCC)* Allergies No known active allergiesdocumented as of this encounter (statuses as of 06/30/2023) Medications Medication Sig Dispensed Refills Start Date [...] as of this encounter (statuses as of 06/30/2023) Active Problems Patient Care Coordination No te Formatting of this note migh t be different from the original. Good connectivity [facility] for wound care [phone] Televideo if needed. 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 SPINAL STENOSIS-LUMBAR 09/23/2002 Vitamin D deficiency Cervical spinal stenosis documented as of this encounter (statuses as of 06/30/2023) Resolved Problems Problem Noted Date Diagnosed Date Resolved Date Depression, unspecified 11/09/2021 03/2 Depression, unspecified 11/09/2021 100 05/2022 Cellulitis of right leg 07/13/202105/2022 Last Assessment & Plan: Suspect this could be early/localized. Will treat with 7 days antibiotic. If pt cannot be reassess by Dr. Braxton office early next week will need [facility] provider recheck Multiple and open wound [...] 11/17/19 23 LUMBAGO 12/24/2002 05/09/2007 LOC PRIM [id number] 12/24/200208/13 DEGENERATIVE SKIN DISORD 12/24/2002 VERTEBRAL FX [...] as of this encounter (statuses as of 06/30/2023) Immunizations Name Administration Dates Next Due COVID-19 mRNA, LNP-s, No Pre serve, 2-Dose Series (Moderna) 03/19/2020 COVID-19 mRNA, LNP-s, No Pre serve, 2-Dose Series (Pfizer) 02/16/2021,04/09/2020,03/19/2020 COVID-19, MRNA-LNP, 23-24, P F, 30 MCG/0.3 mL, 12 YRS AND ABOVE, IM (PFIZER-ComirnatBiologicsInc) 11/16/2022 Covid-19, Mrna, Lnp-s, Pf, B ivalent, [...] this encounter Progress Notes * Estefania Palacios, [facility] - 06/30/2023 11:07 AM EDT Images from the original note were not included. Medication Therapy Disease Management - Anticoagulation Patient: gL Cooley | : 1950 [facility] Patient Anticoagulation Encounter Patient is a resident at: [facility] -- Fax sent to number listed above detailing plan of care below. Please notify clinic with any unusual brusing or bleeding, N/V/D, medication or diet changes or anymissed or extra doses of Coumadin. Subjective Patient-Reported Symptoms: Objective Current Warfarin Dose As of 06/30/2023 Warfarin maintenance plan: 3 mg (3 mg x 1) every Sun, Tue, Mariel; 1.5 mg (3 mg x 0.5) all other days INR Result As of 06/30/2023 INR goal: 2.0-3.0 INR used for dosin.4 (06/30/2023) Assessment & Plan Warfarin Plan As of 06/30/2023 Full warfarin instructions: 06/29: 3 mg; Otherwise 3 mg every Sun, Tue, Mariel; 1.5 mg all other days Next INR check: 07/03/2023 Continue Lovenox 90mg daily until INR in range Repeat PT/INR in 3 day(s) Weekly dose: not changed Additional Dosing Information: Description [facility] Nurses; fax - [phone] ([facility]) Estefania Palacios RP Clinical Pharmacist 06/30/2023, 11:09 AM documented in this encounter Plan of Treatment Upcoming Encounters Date Type Department Care Team (Late st Contact Info) Description 11/20/2023 2:00 PM EDT Office Visit Nephrology [address] [place] [address] ZeMarycarmen alan PA-C [address] [place] [address] 02/20/2024 12:30 PM EST Nurse Only Ancillary [address] [place] [address] [place], Nurse [address] [place] [address] Scheduled Procedures Name Priority Associated Diagnoses Date/Ti [...] Additional history exists CKD PHOS USE SMARTSET 30237 11/17/2023 10/0 05/2022, 09/29/2021, 05/12/2021, Additional history exists Diabetic Foot Exam 11/17/2023 11/16/2022, 0 05/05/2021, 11/22/2017, Additional history exists GFR 12/29/2023 06/28/2023, 02/13, 01/17/2023, Additional history exists Depression Screening 02/17/2024 02/16/2023 CKD HGB USE SMARTSET 16547 06/27/202406/27, 06/28/2023, 01/17/2023, Additional history exists DTaP,Tdap,and [...] this encounter Medical Devices Implanted Type Area Ceo [place] Device Identifier Shelf Expiration Date Model / Serial / Lot Shaft Fibula 6cm [id number] - [id number] Implanted:Qty: 1 on 09/05/2008 at [place] [facility] Tissue - Human N/A: Spine Cervical MUSCULOSKELETAL TRANSPLANT FND 04/20/2010 [id number] / [id number] 0P / Stent Eso Gw 22x70 [id number] - [id number] Implanted:Qty: 1 on 01/21/2008 at [place] [facility] N/A: Esophagus ALVEOLUS INC 04/12/2009 [id number] / / [id number] Depuy Uniplate 32 Implanted:Qty: 1 on 09/05/2008 at [place] [facility] N/A: Spine Cervical TAMMY & TAMMY DEPUY [id number] / / Depuy Uniplate Screw 14mm Implanted:Qty: 2 on 09/05/2008 at OR [facility] N/A: Spine Cervical TAMMY & TAMMY DEPUY [id number] / / Depuy Lordotic Bengal Cage Implanted:Qty: 1 on 05/07/2010 at OR [facility] N/A: Neck [id number] / [id number] / Plate Zach 3 Level Ti 54mm - [id number] Implanted:Qty: 1 on 05/07/2010 at OR [facility] N/A: Neck JNJ : DEPUY SPINE [id number] 54 / / Screw Zach Const St Ti 14mm - [id number] Implanted:Qty: 4 on 05/07/2010 at OR [facility] N/A: Neck JNJ : DEPUY SPINE [id number] / / Screw 3.5x14 Mntr Fa [id number] - [id number] Implanted:Qty: 8 on 05/07/2010 at OR [facility] N/A: Spine Cervical JNJ : ETHICON CARDIOVATIONS [id number] / / Jarrell [id number] - [id number] Implanted:Qty: 1 on 05/07/2010 at [place] [facility] N/A: Spine Cervical JNJ : ETHICON CARDIOVATIONS [id number] / / Screw Inner Mntr [id number] - [id number] Implanted:Qty: 8 on 05/07/2010 at [place] [facility] N/A: Spine Cervical JNJ : ETHICON CARDIOVATIONS [id number] / / Envista Intraocular Lens Implanted:Qty: 1 on 03/10/2022 by Liang Marshall MD at OR [facility] Right: Eye BAUSCH & LOMB 08/13/2023 [id number] / [id number] / [id number] Envista Intraocular Lens Implanted:Qty: 1 on 03/24/2022 by Liang Marshall MD at OR [facility] Left: Eye BAUSCH & LOMB 07/13/2024 [id number] / [id number] / [id number] documented as of this encounter Visit Diagnoses Diagnosis Chronic atrial fibrillation (HCC)- Primary Atrial fibrillation documented in this encounter Advance Directives Documents on File Type Date Recorded 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 No Code Status History Code Status Date Activated Date Inactivated Comments No Code 03/10/2022 7:41 AM 03/10/2022 2:02 PM This order reflects the patients wishes and were consensually agreed upon. Question Answer Comments Discussion of Advance Directives occurred with: Patient Does the patient have a Living Will? No Does the patient have Health Care Power of Streets And Buildings Decorator? No Full Code 05/07/2010 8:55 AM 05/11/2010 9:01 PM This order reflects the patients wishes and were consensually agreed upon. Question Answer Comments Discussion of Advance Directives occurred with: Patient Does the patient have a Living Will? No Does the patient have Health Care Power of Streets And Buildings Decorator? No Full Code 05/07/2010 6:07 AM 05/07/2010 [...] the patient have Health Care Power of Streets And Buildings Decorator? No Care Teams Visual Merchandiser Relationship Specialty Start Date End Date Jocelyne Desai DO [address] [place] [address] [place] [address] PCP - General Internal Medicine 11/09/16 documented as of this encounter"
--- OUTSIDE RECORDS SUMMARY | 2023-08-01 09:36 | External Medical Summary | Summary of Care ---
Author Name Unknown Organization [facility] [address] [address] Phone [phone] Care Team Providers Care Wind Development Director Name Role Phone Jocelyne Desai DO Primary Care Provider + [phone] Encounter Details Date Type Department Care Team (Late st Contact Info) Description 06/30/2023 Orders Only Lab Mobile Phlebotomy [facility] [address] [address] Primitivo Heck MD [address] [place] [address] [place] [address] Chronic kidney disease (CKD)* Allergies No known active allergiesdocumented as of [...] original. Good connectivity [facility] [address] for wound care [phone] Televideo if needed. 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 Status [...] ICD-10 update of inactive term PLATT RESEARCH OTHER*[id number] 02/20/2007 ADVANCE DIRECTIVE INFORMATION 01/19/2005 Overview: Yes, [...] office early next week will need [facility] provider recheck Multiple and open [...] 11/17/19 23 LUMBAGO 12/24/2002 05/09/2007 LOC PRIM [id number] 12/24/200208/13 DEGENERATIVE SKIN DISORD 12/24/2002 VERTEBRAL FX [...] MCG/0.3 mL, 12 YRS AND ABOVE, IM ([facility]) 11/16/2022 Covid-19, Mrna, Lnp-s, Pf, B ivalent, [...] Team (Late st Contact Info) Description 06/30/2023 5:00 AM EDT Laboratory Lab Mobile Phlebotomy [facility] [address] [facility] [place] [address] [place] [address] Arrived 06/30/2023 8:30 AM EDT Correction Visit [address] [place] [address] Primitivo Heck MD [address] [place] [address] [place] [address] 06/30/2023 5:30 PM EDT Anticoagulation Pharmacy Call Center [phone] [facility] [place] [address] [facility] [address] [facility] [place] [address] 11/20/2023 2:00 PM EDT [facility] [address] [place] [address] Marycarmen Kowalski PA-C [address] [place] [address] 02/20/2024 12:30 PM EST Nurse Only Ancillary [address] [place] [address] [place], Nurse [address] [place] [address] Scheduled Orders Name Type Priority Associated Diagnoses Orde r Schedule BASIC METABOLIC PANEL Lab Routine Chronic kidney disease (CKD) Expected: 06/30/2023, Expires: 06/29/2024 PT INR Lab Routine Chronic kidney disease (CKD) Expected: 06/30/2023, Expires: 06/29/2024 Scheduled Procedures Name Priority Associated Diagnoses Date/Ti [...] Additional history exists CKD PHOS USE SMARTSET 71710 11/17/2023 10/0 05/2022, 09/29/2021, 05/12/2021, Additional history exists Diabetic Foot Exam 11/17/2023 11/16/2022, 0 05/05/2021, 11/22/2017, Additional history exists GFR 12/29/2023 06/28/2023, 02/13, 01/17/2023, Additional history exists Depression Screening 02/17/2024 02/16/2023 CKD HGB USE SMARTSET 19736 06/27/202406/27, 06/28/2023, 01/17/2023, Additional history exists DTaP,Tdap,and [...] this encounter Medical Devices Implanted Type Area Content Producer Device Identifier Shelf Expiration Date Model / Serial / Lot Shaft Fibula 6cm [id number] - [id number] Implanted:Qty: 1 on 09/05/2008 at [facility] Tissue - Human N/A: Spine Cervical [employer]CULOSKELETAL TRANSPLANT FND 04/20/2010 [id number] / [id number] / Stent Eso Gw 22x70 [id number] - [id number] Implanted:Qty: 1 on 01/21/2008 at OR [facility] N/A: Esophagus [employer] 04/12/2009 [id number] / / [id number] Depuy Uniplate 32 Implanted:Qty: 1 on 09/05/2008 at OR [facility] N/A: Spine Cervical [employer]PUY [id number] / / Depuy Uniplate Screw 14mm Implanted:Qty: 2 on 09/05/2008 at OR [facility] N/A: Spine Cervical [employer]PUY [id number] / / Depuy Lordotic Bengal Cage Implanted:Qty: 1 on 05/07/2010 at OR [facility] N/A: Neck [id number] / [id number] / Plate Zach 3 Level Ti 54mm - [id number] Implanted:Qty: 1 on 05/07/2010 at OR [facility] N/A: Neck JNJ : DEPUY SPINE [id number] / / Screw Zach Const St Ti 14mm - [id number] Implanted:Qty: 4 on 05/07/2010 at OR [facility] N/A: Neck JNJ : DEPUY SPINE [id number] / / Screw 3.5x14 Mntr Fa [id number] - [id number] Implanted:Qty: 8 on 05/07/2010 at OR [facility] N/A: Spine Cervical JNJ : [employer] [id number] / / Jarrell [id number] - [id number] Implanted:Qty: 1 on 05/07/2010 at [facility] N/A: Spine Cervical JNJ : [employer] [id number] / / Screw Inner Mntr [id number] - [id number] Implanted:Qty: 8 on 05/07/2010 at OR [facility] N/A: Spine Cervical JNJ : [employer] [id number] / / Envista Intraocular Lens Implanted:Qty: 1 on 03/10/2022 by Liang Marshall MD at [facility] Right: Eye BAUSCH [employer] LOMB 08/13/2023 [id number] / [id number] / [id number] Envista Intraocular Lens Implanted:Qty: 1 on 03/24/2022 by Liang Marshall MD at OR [facility] Left: Eye BAUSCH [employer] LOMB 07/13/2024 [id number] / [id number] / [id number] documented as of this encounter Visit Diagnoses Diagnosis Chronic kidney disease (CKD)- Primary Chronic kidney disease, unspecified documented in this encounter Advance Directives Documents on File Type Date Recorded 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 No Code Status History Code Status Date Activated Date Inactivated Comments No Code 03/10/2022 7:41 AM 03/10/2022 2:02 PM This order reflects the patients wishes and were consensually agreed upon. Question Answer Comments Discussion of Advance Directives occurred with: Patient Does the patient have a Living Will? No Does the patient have Health Care Power of Detective Supervisor? No Full Code 05/07/2010 8:55 AM 05/11/2010 9:01 PM This order reflects the patients wishes and were consensually agreed upon. Question Answer Comments Discussion of Advance Directives occurred with: Patient Does the patient have a Living Will? No Does the patient have Health Care Power of Detective Supervisor? No Full Code 05/07/2010 6:07 AM 05/07/2010 [...] the patient have Health Care Power of Detective Supervisor? No Care Teams Wind Development Director Relationship Specialty Start Date End Date Jocelyne Desai DO [address] [place] [address] [place] [address] PCP - General Internal Medicine 11/09/16 documented as of this encounter
--- OUTSIDE RECORDS SUMMARY | 2023-08-01 09:36 | External Medical Summary | Summary of Care ---
Author Name Unknown Organization [facility] Address [address] [facility] [place] [address] Phone [phone] Care Team Providers Care Mill Feeder Name Role Phone Jocelyne Desai Primary Care Provider + [phone] Reason for Visit * Reason Onset Date Comments M[facility] Visit - Admission 06/30/2023 Encounter Details Date Type Department Care Team (Latest Contact Info) Description 06/30/2023 8:30 AM EDT Mcc Visit [address] [place] [address] Primitivo Heck MD [address] [place] [address] [place] [address] Cellulitis of right leg*; MRSA (methicillin resistant Staphylococcus aureus); Venous stasis ulcer of other part of right lower leg with fat layer exposed without varicose veins (HCC); Non-pressure chronic ulcer of other part of right foot with unspecified severity (HCC); JORGE (acute kidney injury) ([facility]); Pressure injury of buttock, stage 2, unspecified laterality (HCC); Type 2 diabetes mellitus with peripheral vascular disease (HCC); Type 2 diabetes mellitus with stage 3b chronic kidney disease, without long-term current use of insulin (HCC); 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 kidney disease (HCC); Acquired absence of right great toe (HCC); Chronic atrial fibrillation (HCC); Orthostatic hypotension; Cardiac pacemaker in situ Allergies No known [...] different from the original. Good connectivity [facility] for wound care [phone] Televideo if needed. Problem Noted Date Diagnosed [...] up with podiatry,. Letter in chart from [facility] pod[facility]ry they were unable to get in [...] ICD-10 update of inactive term PLATT RESEARCH OTHER*[id number] 02/20/2007 ADVANCE DIRECTIVE INFORMATION 01/19/2005 Overview: Yes, [...] 11/17/19 23 LUMBAGO 12/24/2002 05/09/2007 LOC PRIM [id number] 12/24/200208/13 DEGENERATIVE SKIN DISORD 12/24/2002 VERTEBRAL FX [...] as of this encounter Progress Notes * Primitivo Heck MD - 06/30/2023 2:21 PM EDT ADMISSION HISTORY and PHYSICAL TRANSITION EVENT: Type: SNF admission Date: June 26 Code Status: Full Code Name: Lg Cooley Date of : 1950 This note pertains to care provided at [facility] [address]. Please see facility medical record for original note. This note is not to be edited or addended in [facility]. Editing or addending needs to occur in the facilities medical record. S: Lg Cooley had been admitted to [facility] from [facility] for wound care, PT, and OT. Recently admitted to [facility] on 06/14/23 because of right lower extremity cellulitis and calf wound/right foot wounds and was transferred here and admitted on 06/27/2023. Patient of Dr. Desai with PMH of type 2 diabetes mellitus with peripheral vascular disease and stage 3b CKD, chronic atrial fibrillationon Coumadin, hypertension, dyslipidemia, h/o CVA, diabetic neuropathy, venous stasis with edema, h/o gastric bypass, b12 deficiency, paroxysmal SVT, s/p pacemaker, h/o osteomyelitis s/p amputation ofright great toe and distal phalanges of right 2nd and 3rd toes, chronic diabetic foot ulcers, MINERVA, and diastolic CHF who presented to the ED with worsening right lower extremity swelling and redness.He was seen by home health for a dressing change 2 days prior to admission. Patient had prior admission to [facility] 05/05- 05/25/23 with left lower extremity cellulitis after a fall and developed MRSA at that time. It was also noticed he had JORGE with creatinine of 2.1 that improved to 1.5 on discharge. Reza was found to have possible 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 [...] try raisins prior to adding any medication. Past Medical History: Patient Active Problem List Diagnosis Code SPINAL STENOSIS-LUMBAR M48.061 ADVANCE DIRECTIVE INFORMATION Vitamin D deficiency E55.9 Cervical spinal stenosis M48.02 Type 2 diabetes mellitus with hemoglobin A1c goal of less than 7.5% ([facility]) E11.9 HTN, goal below 140/90 I10 DYSLIPIDEMIA, GOAL LDL BELOW 100 E78.5 ARDMORE RESEARCH OTHER*[id number] Erectile dysfunction N52.9 DM neuropathy, type II diabetes mellitus ([facility]) E11.40 Paroxysmal SVT (supraventricular tachycardia) ([facility]) I47.10 Cardiac pacemaker in situ Z95.0 Venous insufficiency of both lower extremities I87.2 Microalbuminuric diabetic nephropathy ([facility]) E11.21 Chronic atrial fibrillation ([facility]) I48.20 Peripheral sensory neuropathy G60.8 Vitamin B12 deficiency E53.8 Cerebrovascular disease, arteriosclerotic, post-stroke I67.2, Z86.73 Status post amputation of lesser toe of right foot ([facility]) Z89.421 Type 2 diabetes, controlled, with peripheral neuropathy ([facility]) E11.42 Type 2 diabetes mellitus with peripheral vascular disease (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) E11.22, N18.32 Sleep apnea treated with nocturnal BiPAP G47.30 PAD (peripheral artery disease) ([facility]) I73.9 Hyperparathyroidism, secondary renal ([facility]) N25.81 Diabetes mellitus due to underlying condition with severe nonproliferative diabetic retinopathy with macular edema, unspecified eye ([facility]) E08.3419 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 kidney disease (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) E11.3511 Chronic kidney disease, stage 3b ([facility]) N18.32 Non-pressure chronic ulcer of other part of right foot with unspecified severity ([facility]) L97.519 Acquired absence of right great toe ([facility]) Z89.411 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, with fat layer exposed ([facility])E11.621, L97.512 History of AR (myocardial infarction) I25.2 Trigger ring finger of left hand M65.342 Full code status Z78.9 Calculus of gallbladder without cholecystitis without obstruction K80.20 Stasis ulcer ([facility]) I83.009, L97.909 MRSA (methicillin resistant Staphylococcus aureus) A49.02 Orthostatic hypotension I95.1 Pressure injury of buttock, stage 2 ([facility]) L89.302 Current Outpatient Medications Medication Sig Dispense Refill [...] Take 1 Tablet by mouth every evening. Tamsulosin HCl 0.4 MG Oral Capsule (Flomax) TAKE 1 CAPSULE BY MOUTH IN THE MORNING 100 Capsule 3 Metoprolol Succinate ER 25 MG Oral Tablet Extended Release 24 Hour (toPROL XL) Take 1 Tablet by mouth in the morning. 100 Tablet 3 Warfarin Sodium 3 MG Oral Tablet (Coumadin) TAKE 1 TO 2 TABLETS BY MOUTH DAILY, DIRECTED BY COUMADIN CLINIC 180 Tablet 3 Atorvastatin Calcium 40 MG Oral Tablet (Lipitor) TAKE ONE TABLET BY MOUTH EVERY DAY 100 Tablet 2 Boost Oral Liquid Take 237 mL by mouth in the morning and 237 mL at noon and 237 mL in the evening.Take before meals. Enoxaparin Sodium 60 MG/0.6ML Injection Solution Prefilled Syringe (Lovenox) Inject 90 mg under theskin in the morning and 90 mg before bedtime. Ozempic (0.25 or 0.5 MG/DOSE) 2 MG/3ML Solution Pen-injector (Semaglutide(0.25 or 0.5MG/DOS)) Inject 0.25 mg under the skin once a week Midodrine HCl 2.5 MG Oral Tablet (Proamatine) Take 1 Tablet by mouth in the morning and 1 Tablet atnoon and 1 Tablet in the evening. Soaanz 40 MG Oral Tablet (Torsemide) Take 1 Tablet by mouth in the morning and 1 Tablet before bedtime. Potassium Chloride Candi ER 20 MEQ Oral Tablet Extended Release Take 1 Tablet by mouth in the morning. Sennosides-Docusate Sodium 8.6-50 MG Oral Tablet (Senna S) Take 1 Tablet by mouth in the morning. oxyCODONE HCl 5 MG Oral Tablet (Oxy IR) Take 1 Tablet by mouth every 6 hours as needed for Pain, Moderate or Pain, Severe. Acetaminophen 325 MG Oral Tablet (Tylenol) Take 2 Tablets by mouth every 4 hours as needed for Fever >38C(100.5F) or Pain, Mild. Cyclobenzaprine HCl 10 MG Oral Tablet (Flexeril) Take 1 Tablet by mouth every 8 hours as needed forMuscle spasms. No current facility-administered medications for this visit. Review of patient's allergies indicates: No Known Allergies Social History Tobacco Use Smoking status: Never Smokeless tobacco: Never Substance Use Topics Alcohol use: Yes Comment: rare beer or wine in the summer Vaping/E-Cigarette Use Vaping/E-Cigarette Use Never User Vaping/E-Cigarette Substances Vaping/E-Cigarette Devices Past Surgical History: Procedure Laterality Date AMPUTATION OF TOE 05/06/2011 2nd toe right foot - no osteomyelitis AMPUTATION OF TOE 08/2020 big toe on right foot COLONOSCOPY, DIAGNOSTIC (RECTUM) 09/23/2010 normal COLONOSCOPY, DIAGNOSTIC (RECTUM) 09/08/2021 normal, repeat 10 yrs / COLONOSCOPY FLEXIBLE PROXIMAL DIAGNOSTIC performed by Janice Shoemaker DO atENDOSCOPY [facility] CYSTOSCOPY 02/16/2015 EGD, FLEXIBLE, DIAGNOSTIC 09/20/2007 UPPER GI ENDOSCOPY DIAGNOSTIC performed by KAUSHAL WHITE at [facility] EGD, FLEXIBLE, DIAGNOSTIC 01/04/2008 UPPER GI ENDOSCOPY DIAGNOSTIC performed by KAUSHAL WHITE at [facility] EGD, FLEXIBLE, DIAGNOSTIC 03/21/2008 UPPER GI ENDOSCOPY DIAGNOSTIC performed by KAUSHAL WHITE at [facility] EGD, FLEXIBLE, TRANSENDOSCOPIC DILATION <30MM 01/04/2008 UPPER GI ENDOSCOPY BALLOON DILATION LESS THAN 30MM performed by KAUSHAL WHITE at [facility] EXPLORATION OF ABDOMEN 01/21/2008 EXPLORATORY LAPAROTOMY performed by KAUSHAL WHITE at [facility] FORM SKIN PEDICLE, TRUNK 02/14/1956 to right forearm INFORMATION Gum surgery/cyst removed INFORMATION 02/13/2005 ORAL CYST REMOVAL INJECTION OF EYE DRUG Right 12/30/2021 # 1 Avastin OD, Dr. Hodge INJECTION OF EYE DRUG Right 04/01/2022 # 2 Avastin OD, Dr. Hodge INSERT/REPLACE PACEMAKER,ATRIAL/VENTRICULAR 04/11/2013 04/11/2013 placement of siingle-chamber pacemaker via left subclavian approach [facility] DR.Mar Garcia - symptomatic bradycardia LAPAROSCOPE PROCEDURE, LIVER 09/20/2007 UNLISTED LAPAROSCOPIC PROCEDURE LIVER performed by KAUSHAL WHITE at [facility] LAPAROSCOPIC GASTRIC BYPASS/BHUPINDER-EN-Y 09/20/2007 LAPAROSCOPIC GASTRIC RESTRICTIVE BYPASS BHUPINDER EN Y performed by KAUSHAL WHITE at [facility] LASER SURGERY OF INNER EYE STRANDS Bilateral "about 20- 25 years ago" MICROSURGERY ADD-ON 05/07/2010 MICROSURGICAL SURGERY REQUIRING MICROSCOPE LISTED SEPARATELY performed by GAVIN BHARDWAJ at [facility] MRI FOOT WO CONTRAST 04/06/2011 Osteomyelitis of the distal phalanx of the 2nd digit. Reactive edema versus early osteomyelitis of the 2nd middle phalanx NECK SPINE FUSION (CERV, BELOW C2) 09/05/2008 ARTHRODESIS SPINE ANTERIOR CERVICAL performed by GAVIN BHARDWAJ at [facility] NECK SPINE FUSION (CERV, BELOW C2) 05/07/2010 ARTHRODESIS SPINE ANTERIOR CERVICAL performed by GAVIN BHARDWAJ at [facility] NECK SPINE FUSION (CERV, BELOW C2) 05/07/2010 ARTHRODESIS SPINE POSTERIOR CERVICAL performed by GAVIN BHARDWAJ at [facility] OTHER (INFORMATION) ACT 112 SIGNED 06/11/20 DR. HODGE OTHER (INFORMATION) Bilateral AVASTIN OU CONSENT DR. HODGE/MITESH EXP. 12/30/22 PACEMAKER INSERTION PER 01/18/2023 Dr. Rodriguez [facility] PARTIAL AMPUTATION OF TOE Right 12/2020 3rd toe and release tendon of other toes at the same time. REMOVAL OF TONSILS, AGE 12+ REMOVE ADDED VERTEBRAL SEG, NECK 05/07/2010 VERTEBRAL CORPECTOMY CERVICAL EACH ADDITIONAL LEVEL performed by GAVIN BHARDWAJ at [facility] REMOVE CATARACT, INSERT LENS PROSTH Right 03/10/2022 right EXTRACAPSULAR CATARACT REMOVAL WITH INTRAOCULAR LENS performed by Liang Marshall MD at [facility] REMOVE CATARACT, INSERT LENS PROSTH Left 03/24/2022 left EXTRACAPSULAR CATARACT REMOVAL WITH INTRAOCULAR LENS performed by Liang Marshall MD at OR [facility] REMOVE NECK SPINE DISK, SINGLE 09/05/2008 DISKECTOMY ANTERIOR CERVICAL performed by GAVIN BHARDWAJ at [facility] REMOVE NECK SPINE DISK, SINGLE 05/07/2010 DISKECTOMY ANTERIOR CERVICAL performed by GAVIN BHARDWAJ at [facility] REMOVE VERTEBRAL BODY, NECK, SINGLE 05/07/2010 VERTEBRAL CORPECTOMY ANTERIOR CERVICAL performed by GAVIN BHARDWAJ at [facility] REPAIR FINGER/HAND TENDON, EACH & right index finger tendon transfer from toe - [facility] SPINE FIX DEV, ANT, 4-7 SEG, INSERT 05/07/2010 ANTERIOR INSTRUMENTATION 4 TO 7 VERTEBRAL SEGMENTS performed by GAVIN BHARDWAJ at [facility] SPINE SEG FIX, POST, 3-6 SEG, INSERT 05/07/2010 POSTERIOR SPINE SEGMENTAL INSTRUMENTATION 3 TO 6 PSF performed by GAVIN BHARDWAJ at [facility] UPPR GI ENDOSCOPY W/STENT 01/21/2008 UPPER GI ENDOSCOPY WITH TRANSENDOSCOPIC STENT PLACEMENT performed by KAUSHAL WHITE at [facility] Family History Problem Relation Age of Onset Heart Disorder Mother pacemaker Diabetes Mother Cancer Mother esopheagal Hypertension Mother Cancer Father Diabetes Father Heart Disorder Father Blindness Father "Diabetes related" Hypertension Father Hypertension Brother Family Status Relation Status Mo HTN, DM, hypothyroidism, esphogeal cancer Fa at age 53 stomach cancer, DM, CAD Sis Alive thyroid disease Sis Alive leg ulcers Bro MVA Bro Alive Lyle Alive Son Alive Results for orders placed or performed in visit on 06/30/23 PT INR Result Value Ref Range Prothrombin Time 17.5 (H) 11.6 - 15.2 seconds INR 1.4 (H) 0.8 - 1.2 *Note: Due to a large number of results and/or encounters for the requested time period, some results have not been displayed. A complete set of results can be found in Results Review. CBC Results: Results for orders placed or performed in visit on 06/28/23 CBC Result Value Ref Range WBC 4.18 4.00 - 10.80 K/uL RBC 3.13 4.50 - 5.25 M/uL HGB 9.1 (L) 14.0 - 16.8 g/dL HCT 28.5 (L) 40.0 - 48.4 % MCV 91.1 82.0 - 99.5 fL MCH 29.1 27.0 - 34.0 pg MCHC 31.9 32.0 - 36.0 g/dL RDW 14.6 11.5 - 15.5 % PLT 298 140 - 400 K/uL MPV 10.7 6.6 - 11.1 fL Basic Panel Results: Results for orders placed [...] Results Component Value Date/Time CREATININE - [facility] 3.0 (H) 06/28/2023 06:15 AM CREATININE - [facility] 1.7 (H) 02/23/2023 04:05 PM CREATININE - [facility] 1.7 (H) 01/17/2023 09:04 AM CREATININE - [facility] 1.7 (H) 11/18/2019 01:37 [...] AM CREATININE-OUTSIDE LAB 1.35 05/20/2019 12:00 AM Hemoglobin AIC Results: Lab Results Component [...] - [facility] 7.6 (H) 11/09/2022 12:59 PM Review of Systems: Constitutional ROS: No change in weight, No fevers, sweats, or chills, and +generalized weakness Eye ROS: No recent significant change in vision and No eye pain, redness, discharge Ear ROS: No ear pain, No drainage, No tinnitus or vertigo, and No recent change in hearing Nose ROS: No history of frequent colds or sinusitis, No nasal stuffiness, No history of Hay Fever, and No significant epistaxis Mouth/Throat ROS: No bleeding gums, No thrush, or No sore throat Pulmonary ROS: No cough, sputum, or hemoptysis, No wheezing, No shortness of breath, and No recent change in breathing Cardiovascular ROS: No chest pain, No shortness of breath, No orthopnea, No paroxysmal nocturnal dyspnea, No palpitations, and No syncope. +atrial fibrillation and diastolic CHF Gastrointestinal ROS: No abdominal pain, No change in bowel habits, No significant heartburn, No significant change in appetite, No hematemesis, No blood in stools or black tarry stools, No abdominalbloating or early satiety, No dysphagia, and +constipation Genito-Urinary Male ROS: No dysuria, No frequency, and +BPH Musculoskeletal/Extremities ROS: +as per HPI Hematologic/Lymphatic ROS: No abnormal bleeding, No chills, +anticoagulated Skin/Integumentary ROS: +numerous ulcers Neurologic ROS: No headaches and No seizures Endocrine ROS: No heat intolerance, No cold intolerance, No thyroid trouble, and +type 2 diabetes mellitus Psychiatric ROS: No depression, No anxiety, and No psychosis ADL skills: dependent Ambulates with walker OBJECTIVE: PHYSICAL EXAM: I reviewed the most recent facilities vitals. Refer to vital signs flowsheet in correction chart.General: alert, no distress, and sarcopenic Head: Normocephalic, No masses, lesions, tenderness or abnormalities Eye Exam: PERRLA, extraocular movements intact, conjunctiva are pink and non- injected, sclera clear Ears: External ears normal Nose: no mucosal erythema, no mucosal edema, no purulent discharge Oropharynx: no exudate, no erythema, lips, buccal mucosa, and tongue normal, and mucous membranes are moist Neck: supple, no adenopathy, no bruits Heart: regular rate & rhythm, no murmur, and no gallops Lungs: chest symmetric with normal AP diameter, no chest deformities noted, no chest wall tenderness, lungs clear to auscultation Abdomen: abdomen soft, non-tender, normal bowel sounds, and no masses or organomegaly Extremities: no clubbing, no cyanosis, chronic venous changes of bilateral lower extremities with scaling, flaking skin bilaterally. Dressing in place right right medial calf. No warmth or tendernessof extremities. Right foot with s/p amputation of right great toe and distal phalanges of right 2ndand 3rd toes. +ulcer of ball of right foot and heel. +avulsed nail of left great toe. +large erythematous area of right upper inner thigh that appears to be where large blister sloughed without signsof active infection. +dressing to buttocks ulcers Neuro Exam: alert & oriented x 3 with fluent speech, no focal motor/sensory deficits ASSESSMENT: Cellulitis of right leg (Primary)--completed Daptomycin. MRSA (methicillin resistant Staphylococcus aureus)--has numerous wounds of right foot, right calf, and buttocks. +MRSA. Continue local wound care. Venous stasis ulcer of other part of right lower leg with fat layer exposed without varicose veins ([facility])--continue local wound care. Non-pressure chronic ulcer of other part of right foot with unspecified severity ([facility])--continue wound care. JORGE (acute kidney injury) ([facility])--creatinine at high of 5.16. Was seen by nephrology and dialysis discussed. Improved to 3.0 today. Losartan was discontinued. Follow-up with nephrology. Pressure injury of buttock, stage 2, unspecified laterality ([facility])--wound care and pressure relieving measures. Type 2 diabetes mellitus with peripheral vascular disease (HCC)--patient with chronic diabetic footwounds and cellulitis related to PVD. Type 2 diabetes mellitus with stage 3b chronic kidney disease, without long-term current use of insulin (HCC)--GFR remains down and may stay at stage IV now but creatinine is starting to improve. Diabetes well controlled with Ozempic. 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 kidney disease (HCC)--continue metoprolol succinate 25 mg daily. Blood pressure has been normal here. Started on midodrine for hypotension per nephrology. GFR remains stage IV but appears to be improving still. Check follow-up BMP. Was started on torsemide 40 mg twice daily as well and continue fluid restriction. Acquired absence of right great toe (HCC)--about 5 years ago for osteomyelitis Chronic atrial fibrillation (HCC)--s/p pacemaker. Rate controlled with metoprolol succinate 25 mg daily. On Coumadin and continue Lovenox per ACC until INR therapeutic. Orthostatic hypotension--midodrine 2.5 mg TID per nephrology Cardiac pacemaker in situ PLAN: 1. Continue present medication(s): Schedule labs: CBC and BMP with next INR Patient education: May use own Ozempic if not able to get from [facility] pharmacy. Patient doses this on Mondays. Has missed about 2 weeks of dosing, possibly more, so OK to resume at lower dose of 0.25 mgweekly. 2. Admission orders, medications, labs, hospital records and care plan reviewed. 3. Rotary Drier consult, Physical Therapy, Occupational Therapy, and Speech Therapy ordered. 4. Care plan reviewed. 5. Advance Directives were discussed: Full Code 6. Jail Home Treatment Given: wound care Electronically signed by: Primitivo Heck MD I spent a total of 54 minutes coordinating, documenting, and providing care for this patient excluding time spent in the performance of separately billed services or time spent by another provider/QHP. documented in this encounter Plan of Treatment Upcoming Encounters Date Type Department Care Team (Latest Contact Info) Description 06/30/2023 5:30 PM EDT Anticoagulation Pharmacy Call Center WB [phone] [place] [phone] [facility] [address] [facility] [place] [phone] Chronic atrial fibrillation (HCC)* 07/03/2023 5:30 PM EDT Anticoagulation Pharmacy Call Center WB [phone] [place] [phone] [facility] [address] [facility] [place] [phone] 11/20/2023 2:00 PM EDT Office Visit Nephrology [address] [place] [phone] ZeMarycarmen alan PA-C [address] [place] [address] 02/20/2024 12:30 PM EST Nurse Only Ancillary [address] [place] [phone] [place], Nurse [address] [place] [phone] Scheduled Procedures Name Priority Associated Diagnoses Date/Ti [...] Additional history exists CKD PHOS USE SMARTSET 83961 11/17/2023 10/0 05/2022, 09/29/2021, 05/12/2021, Additional history exists Diabetic Foot Exam 11/17/2023 11/16/2022, 0 05/05/2021, 11/22/2017, Additional history exists GFR 12/29/2023 06/28/2023, 02/13, 01/17/2023, Additional history exists Depression Screening 02/17/2024 02/16/2023 CKD HGB USE SMARTSET 61892 06/27/202406/27, 06/28/2023, 01/17/2023, Additional history exists DTaP,Tdap,and [...] this encounter Medical Devices Implanted Type Area Foam Tank Laminator Device Identifier Shelf Expiration Date Model / Serial / Lot Shaft Fibula 6cm [id number] - [id number] Implanted:Qty: 1 on 09/05/2008 at [facility] Tissue - Human N/A: Spine Cervical MUSCULOSKELETAL TRANSPLANT FND 04/20/2010 [id number] / [id number] 0P / Stent Eso Gw 22x70 [id number] - [id number] Implanted:Qty: 1 on 01/21/2008 at [facility] N/A: Esophagus [employer] 04/12/2009 [id number] / / [id number] Depuy Uniplate 32 Implanted:Qty: 1 on 09/05/2008 [...] [facility] N/A: Neck [id number] / [id number] / Plate Zach 3 Level Ti 54mm - [id number] Implanted:Qty: 1 on 05/07/2010 [place] [facility] [place]A: Neck JNJ : DEPUY SPINE [id number] / / Screw Zach Const St Ti 14mm - [id number] Implanted:Qty: 4 on 05/07/2010 at [place] [facility] [place] N[place]A: Neck JNJ : DEPUY SPINE [id number] / / Screw 3.5x14 Mntr Fa [id number] - [id number] Implanted:Qty: 8 on 05/07/2010 at [place] [facility] [place] N/A: Spine Cervical JNJ : ETHICON CARDIOVATIONS [id number] / / Jarrell [id number] - [id number] Implanted:Qty: 1 on 05/07/2010 at [place] [facility] [place] N/A: Spine Cervical JNJ : ETHICON CARDIOVATIONS [id number] / / Screw Inner Mntr [id number] - [id number] Implanted:Qty: 8 on 05/07/2010 at [place] [facility] [place] N/A: Spine Cervical JNJ : ETHICON CARDIOVATIONS [id number] / / Envista Intraocular Lens Implanted:Qty: 1 on 03/10/2022 by Liang Marshall MD at [place] [facility] Right: Eye BAUSCH & LOMB 08/13/2023 [id number] / [id number] / [id number] Envista Intraocular Lens Implanted:Qty: 1 on 03/24/2022 by Liang Marshall MD at OR [facility] Left: Eye BAUSCH & LOMB 07/13/2024 [id number] / [id number] / [id number] documented as of this encounter Visit Diagnoses Diagnosis Cellulitis of right leg- Primary Cellulitis and abscess of leg, except foot MRSA (methicillin resistant Staphylococcus aureus) Methicillin resistant Staphylococcus aureus in conditions classified elsewhere and of unspecified site Venous stasis ulcer of other part of right lower leg with fat layer exposed without varicose veins (HCC) Non-pressure chronic ulcer of other part of right foot with unspecified severity (HCC) JORGE (acute kidney injury) (HCC) Acute kidney failure, unspecified Pressure injury of buttock, stage 2, unspecified laterality (HCC) Type 2 diabetes mellitus with peripheral vascular disease (HCC) Type 2 diabetes mellitus with stage 3b chronic kidney disease, without long-term current use of insulin (HCC) 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 kidney disease (HCC) Acquired absence of right great toe (HCC) Lower limb amputation, great toe Chronic atrial fibrillation (HCC) Atrial fibrillation Orthostatic hypotension Cardiac pacemaker in situ Chronic atrial fibrillation (HCC)- Primary Atrial fibrillation documented in this encounter Advance Directives Documents on File Type Date Recorded Patient Radio Interference Supervisor Expl anation POLST 01/26/2021 [place] [...] the patient have Health Care Power of Speech Writer? No Code Status History Code Status Date Activated Date Inactivated Comments No Code 03/10/2022 7:41 AM 03/10/2022 2:02 PM This order reflects the patients wishes and were consensually agreed upon. Question Answer Comments Discussion of Advance Directives occurred with: Patient Does the patient have a Living Will? No Does the patient have Health Care Power of Speech Writer? No Full Code 05/07/2010 8:55 AM 05/11/2010 9:01 PM This order reflects the patients wishes and were consensually agreed upon. Question Answer Comments Discussion of Advance Directives occurred with: Patient Does the patient have a Living Will? No Does the patient have Health Care Power of Speech Writer? No Full Code 05/07/2010 6:07 AM 05/07/2010 [...] the patient have Health Care Power of Speech Writer? No Care Teams Mill Feeder Relationship Specialty Start Date End Date Jocelyne Desai DO [address] [place] [address] [place] [phone] PCP - General Internal Medicine 11/09/16 documented as of this encounter
--- OUTSIDE RECORDS SUMMARY | 2023-08-01 09:36 | External Medical Summary ---
Author Name Unknown Address Unknown Organization [facility] [address] [place] [address] Laboratory Report Ordering Provider Test Date Status MOE LOPEZ 07/03/2023 05:48:00 Final Observation Date Value Abnormality Reference (Units ) Status WBC, Total 07/03/2023 05:48:00 3.86 Below low normal 4. 00-10.80 (K/uL) Final RBC 07/03/2023 05:48:00 3.42 4.50-5.25 (M/uL) Final Hemoglobin 07/03/2023 05:48:00 9.9 Below low normal 14 .0-16.8 (g/dL) Final HCT 07/03/2023 05:48:00 31.2 Below low normal 40. 0-48.4 (%) Final MCV 07/03/2023 05:48:00 91.2 82.0-99.5 (fL) Final MCH 07/03/2023 05:48:00 28.9 27.0-34.0 (pg) Final MCHC 07/03/2023 05:48:00 31.7 32.0-36.0 (g/dL) Final RDW 07/03/2023 05:48:00 14.5 11.5-15.5 (%) Final Platelets 07/03/2023 05:48:00 218 140-400 (K /uL) Final MPV 07/03/2023 05:48:00 11.0 6.6-11.1 ( fL) Final Performing Location [facility]ORY [facility] [address] [place] [id number]
--- OUTSIDE RECORDS SUMMARY | 2023-08-01 09:36 | External Medical Summary ---
Author Name Unknown Address Unknown Organization K0G:[facility] [address] [place] [address] Laboratory Report Ordering Provider Test Date Status MOE LOPEZ 06/30/2023 05:57:00 Final Warfarin Therapy
INR: 2 .0-3.0 conventional anticoagulation
INR: 2.5- 3.5 high intensity anticoagulation Observation Date Value Abnormality Reference (Units ) Status PT 06/30/2023 05:57:00 17.5 Above high normal 11 .6-15.2 (seconds) Final INR 06/30/2023 05:57:00 1.4 Above high normal 0. 8-1.2 Final Performing Location [facility]ORY [facility] [address] [place] [address]
--- OUTSIDE RECORDS SUMMARY | 2023-08-01 09:36 | External Medical Summary ---
Author Name Unknown Address Unknown Organization [facility] [address] [place] [address] Laboratory Report Ordering Provider Test Date Status MOE LOPEZ 07/03/2023 05:48:00 Final Observation Date Value Abnormality Reference (Units ) Status SYNC LEUKOCYTES IN BLOOD BY AUTOMATED COUNT 07/03/2023 05:48:00 3.86 Below low normal 4.00-10.80 (K/uL) Final Segs 07/03/2023 05:48:00 60.6 40.0-75.0 (%) Final Lymphs % 07/03/2023 05:48:00 24.1 18.0-42.0 (%) Final Monos 07/03/2023 05:48:00 12.4 Above high normal 1.0-11.0 (%) Final Eosinophils 07/03/2023 05:48:00 2.6 0.0-6.0 (%) Final Basos 07/03/2023 05:48:00 0.3 0.0-2.0 (%) Final Absolute Segs 07/03/2023 05:48:00 2.34 1.80-7.70 (K/uL) Final Lymphs, absolute 07/03/2023 05:48:00 0.93 Below low normal 1.00-4.80 (K/ul) Final Monos, Abs 07/03/2023 05:48:00 0.48 0.00-1.10 (K/uL) Final Eos, Abs 07/03/2023 05:48:00 0.10 0.00-0.70 (K/uL) Final Basos, Abs 07/03/2023 05:48:00 0.01 0.00-0.20 (K/uL) Final Performing Location [facility] [address] [place] [address]
--- OUTSIDE RECORDS SUMMARY | 2023-08-01 09:37 | External Medical Summary | Continuity Of Care Document ---
Author Name Unknown Address [address] [place] [address] Organization [facility] ( ) Care Team Providers Care Back Order Clerk Name Role Phone Maria R Tremaineyudith Primary Care Provider +[phone] VITAL SIGNS Date Time Diastolic blood pressure Systolic blood pressure Body height Body weight Temperature SpO2 Blood Sugar Pulse Respirations 23296 514 03876 9 204.00 NI 20411 514 65280 1 71 NI 91898 514 76921 7 67.00 mm[Hg] - Sitting 110.00 mm[Hg] - Sitting 204.00 NI 98.30 Oral 94.00 % 63.00/ min 18.00/min Immunizations Vaccine Date Status COVID-19 03/19/2020 Completed COVID-19 04/09/2020 Completed COVID-19 02/16/2021 Completed COVID-19 11/16/2021 Completed Hepatitis B 05/13/2002 Completed Hepatitis B 06/10/2002 Completed Hepatitis B 11/11/2002 Completed Influenza 11/27/2018 Completed Influenza 11/09/2021 Completed (PCV13)Pneumococcal 11/01/2017 Completed (PPSV23)Pneumococcal 11/27/2018 Completed Shingles 10/04/2018 Completed Tetanus 12/01/2018 Completed TDaP 10/11/2007 Completed
--- OUTSIDE RECORDS SUMMARY | 2023-08-01 09:37 | External Medical Summary ---
Author Name Unknown Address Unknown Organization K0G:[facility] [address] [place] [address] Laboratory Report Ordering Provider Test Date Status MOE LOPEZ 06/28/2023 06:15:00 Final Warfarin Therapy
INR: 2 .0-3.0 conventional anticoagulation
INR: 2.5- 3.5 high intensity anticoagulation Observation Date Value Abnormality Reference (Units ) Status PT 06/28/2023 06:15:00 17.1 Above high normal 11 .6-15.2 (seconds) Final INR 06/28/2023 06:15:00 1.4 Above high normal 0. 8-1.2 Final Performing Location LABORATORY [facility] [address] [place] [address]
--- OUTSIDE RECORDS SUMMARY | 2023-08-01 09:37 | External Medical Summary ---
Author Name Unknown Address Unknown Organization [facility] [address] [place] [address] Laboratory Report Ordering Provider Test Date Status MOE LOPEZ 06/28/2023 06:15:00 Final Observation Date Value Abnormality Reference (Units ) Status WBC, Total 06/28/2023 06:15:00 4.18 4.00-10.8 0 (K/uL) Final RBC 06/28/2023 06:15:00 3.13 4.50-5.25 (M/uL) Final Hemoglobin 06/28/2023 06:15:00 9.1 Below low normal 14 .0-16.8 (g/dL) Final HCT 06/28/2023 06:15:00 28.5 Below low normal 40. 0-48.4 (%) Final MCV 06/28/2023 06:15:00 91.1 82.0-99.5 (fL) Final MCH 06/28/2023 06:15:00 29.1 27.0-34.0 (pg) Final MCHC 06/28/2023 06:15:00 31.9 32.0-36.0 (g/dL) Final RDW 06/28/2023 06:15:00 14.6 11.5-15.5 (%) Final Platelets 06/28/2023 06:15:00 298 140-400 (K /uL) Final MPV 06/28/2023 06:15:00 10.7 6.6-11.1 ( fL) Final Performing Location LABORATORY [facility] [address] [place] [address]
--- OUTSIDE RECORDS SUMMARY | 2023-08-01 09:37 | External Medical Summary | Summary of Care ---
Author Name Unknown Organization [facility] Address [address] [facility] [place] [address] Phone [phone] Care Team Providers Care Welding Equipment Repairer Supervisor Name Role Phone DesaiElissaJocelyne Briggs DO Primary Care Provider + [phone] Reason for Visit * Reason Comments Dosage Adjustment Via Phone (anticoag Cl inic) Encounter Details Date Type Department Care Team (Latest Contact Info) Description 06/27/2023 6:45 AM EDT Anticoagulation Pharmacy Call Center [address] [facility], [place] [address] [facility] [address] [place] [address] Chronic atrial fibrillation (HCC)* Allergies No known [...] from the original. Good connectivity [facility] for wound care [phone] Televideo if needed. Problem Noted Date Diagnosed [...] with podiatry,. Letter in chart from [facility] podiatry they were unable [...] ICD-10 update of inactive term PLATT RESEARCH OTHER*[id number] 02/20/2007 ADVANCE DIRECTIVE INFORMATION 01/19/2005 Overview: Yes, [...] [place] office early next week will need [facility] provider recheck Multiple and open [...] 11/17/19 23 LUMBAGO 12/24/2002 05/09/2007 LOC PRIM PCLILYVU-G-FTC 12/24/200208/13 DEGENERATIVE SKIN DISORD 12/24/2002 VERTEBRAL FX [...] this encounter Progress Notes * Estefania Palacios, [facility] - 06/27/2023 2:32 PM EDT Pt remains admitted to [facility]. Plan is Radha Grimaldo at discharge. [facility] will follow up at d/c Estefania Palacios Rph, Pharm.D. Clinical Pharmacist [facility] ([facility]) (formerly Telepharmacy) [phone] 06/27/2023,2:34 PM documented in this encounter Plan of Treatment Upcoming Encounters Date Type Department Care Team (Late st Contact Info) Description 06/30/2023 8:30 AM EDT Senior Living Visit [address] [place] [address] Primitivo Heck MD [address] [place] [address] [place] [address] 11/20/2023 2:00 PM EDT Office Visit Nephrology [address] [place] [address] ZemaitisMarycarmen PA-C [address] [place] [address] 02/20/2024 12:30 PM EST Nurse Only Ancillary [address] [place] [address] [place], Nurse Annual [address] [place] [address] Scheduled Procedures Name Priority Associated Diagnoses Date/Ti co COLONOSCOPY FLEXIBLE PROXIMA L DIAGNOSTIC Recall Screening for colon cancer Health Maintenance Due Date Last Done Comments Cologuard 1997 Sigmoidoscopy 1997 Fecal Occult Blood Test 09/02/2009 09/02/2008, 05/04 Diabetic Eye Exam 12/30/2022 12/30/2021, , 12/28/2021, Additional history exists HbA1c 05/18/2023 11/16/2022, 10/15, 05/13/2022, Additional history exists Albumin/Creatinine Ratio 11/17/2023 023, 05/13/2022, 09/29/2021, Additional history exists CKD PHOS USE SMARTSET 47801 11/17/2023 100 05/2022, 09/29/2021, 05/12/2021, Additional history exists Diabetic Foot Exam 11/17/2023 11/16/2022, 0 05/05/2021, 11/22/2017, Additional history exists GFR 12/29/2023 06/28/2023, 02/13, 01/17/2023, Additional history exists Depression Screening 02/17/2024 02/16/2023 CKD HGB USE SMARTSET 71106 06/27/202406/27, 06/28/2023, 01/17/2023, Additional history exists DTaP,Tdap,and [...] this encounter Medical Devices Implanted Type Area Hotel Engineer Device Identifier Shelf Expiration Date Model / Serial / Lot Shaft Fibula 6cm [id number] - [id number] Implanted:Qty: 1 on 09/05/2008 at [place] [facility] [place] Tissue - Human N/A: Spine Cervical MUSCULOSKELETAL TRANSPLANT FND 04/20/2010 [id number] / [id number] / Stent Eso Gw 22x70 [id number] - [id number] Implanted:Qty: 1 on 01/21/2008 at [place] [facility] N/A: Esophagus [employer] 04/12/2009 [id number] / / [id number] Depuy Uniplate 32 Implanted:Qty: 1 on 09/05/2008 at [place] [facility] N/A: Spine Cervical TAMMY & TAMMY DEPUY [id number] / / Depuy Uniplate Screw 14mm Implanted:Qty: 2 on 09/05/2008 at [place] [facility] N/A: Spine Cervical TAMMY & TAMMY DEPUY [id number] / / Depuy Lordotic Bengal Cage Implanted:Qty: 1 on 05/07/2010 at [place] [facility] N/A: Neck [id number] / [id number] / Plate Zach 3 Level Ti 54mm - [id number] Implanted:Qty: 1 on 05/07/2010 at [place] [facility] N/A: Neck JNJ : DEPUY SPINE [id number] / / Screw Zach Const St Ti 14mm - [id number] Implanted:Qty: 4 on 05/07/2010 at [place] [facility] N/A: Neck JNJ : DEPUY SPINE [id number] / / Screw 3.5x14 Mntr Fa [id number] - [id number] Implanted:Qty: 8 on 05/07/2010 at [place] [facility] N/A: Spine Cervical JNJ : ETHICON CARDIOVATIONS [id number] / / Jarrell [id number] - [id number] Implanted:Qty: 1 on 05/07/2010 at [place] [facility] N/A: Spine Cervical JNJ : ETHICON CARDIOVATIONS [id number] / / Screw Inner Mntr [id number] - [id number] Implanted:Qty: 8 on 05/07/2010 at [place] [facility] N/A: Spine Cervical JNJ : ETHICON CARDIOVATIONS [id number] / / Envista Intraocular Lens Implanted:Qty: 1 on 03/10/2022 by Liang Marshall MD at [place] [facility] Right: Eye BAUSCH & LOMB 08/13/2023 [id number] / [id number] / [id number] Envista Intraocular Lens Implanted:Qty: 1 on 03/24/2022 by Liang Marshall MD at OR [facility] Left: Eye BAUSCH & LOMB 07/13/2024 [id number] / [id number] / [id number] documented as of this encounter Visit Diagnoses Diagnosis Chronic atrial fibrillation (HCC)- Primary Atrial fibrillation documented in this encounter Advance Directives Documents on File Type Date Recorded Patient Coil Former Expl anation POLST 01/26/2021 [place] D[place] [...] the patient have Health Care Power of Locomotive Pipe Fitter? No Code Status History Code Status Date Activated Date Inactivated Comments No Code 03/10/2022 7:41 AM 03/10/2022 2:02 PM This order reflects the patients wishes and were consensually agreed upon. Question Answer Comments Discussion of Advance Directives occurred with: Patient Does the patient have a Living Will? No Does the patient have Health Care Power of Locomotive Pipe Fitter? No Full Code 05/07/2010 8:55 AM 05/11/2010 9:01 PM This order reflects the patients wishes and were consensually agreed upon. Question Answer Comments Discussion of Advance Directives occurred with: Patient Does the patient have a Living Will? No Does the patient have Health Care Power of Locomotive Pipe Fitter? No Full Code 05/07/2010 6:07 AM 05/07/2010 [...] the patient have Health Care Power of Locomotive Pipe Fitter? No Care Teams Welding Equipment Repairer Supervisor Relationship Specialty Start Date End Date Jocelyne Desai DO [address] [place] [address] [place] [address] PCP - General Internal Medicine 11/09/16 documented as of this encounter
--- OUTSIDE RECORDS SUMMARY | 2023-08-01 09:37 | External Medical Summary | Summary of Care ---
Author Name Unknown Organization [facility] Address [address] [facility] [place] [address] Phone [phone] Care Team Providers Care Client Support Coordinator Name Role Phone Jocelyne Desai DO Primary Care Provider + [phone] Encounter Details Date Type Department Care Team (Late st Contact Info) Description 06/28/2023 Orders Only Lab Mobile Phlebotomy [facility] [address] [place] [address] Primitivo Heck MD [address] [place] [address] [place] [address] A-fib ([facility]ERLY [facility])*; Cellulitis; JORGE (acute kidney injury) ([facility]) Allergies No known active allergiesdocumented as of [...] be different from the original. Good connectivity [facility] for wound care [phone] Televideo if needed. 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 He has significant history DM and PVD and recommended he still follow up with podiatry,. Letter in chart from [facility] podiatry they were unable to get [...] ICD-10 update of inactive term PLATT RESEARCH OTHER*[id number] 02/20/2007 ADVANCE DIRECTIVE INFORMATION 01/19/2005 Overview: Yes, [...] 02/27/2003 11/17/19 LUMBAGO 12/24/2002 05/09/2007 LOC PRIM [id number] 12/24/200208/13 DEGENERATIVE SKIN DISORD 12/24/2002 VERTEBRAL FX [...] Care Team (Late st Contact Info) Description 06/28/2023 5:00 AM EDT Laboratory Lab Mobile Phlebotomy [facility] [address] [facility] [place] [address] [place] [address] Arrived 06/28/2023 6:45 AM EDT Anticoagulation Pharmacy Call Center [address] [facility] [place] [address] Ccps, [facility] 58 60 [facility] [place] [address] 11/20/2023 2:00 PM EDT Office Visit Nephrology [address] [place] [address] Zemaitis, Marycarmen Dill PA-C [address] [place] [address] 02/20/2024 12:30 PM EST Nurse Only Ancillary [address] [place] [address] [place], Nurse [address] [place] [address] Scheduled Orders Name Type Priority Associated Diagnoses Orde r Schedule CBC WITH WBC DIFFERENTIAL Lab Routine A-fib ([facility]) Cellulitis JORGE (acute kidney injury) ([facility]) Expected: 06/28/2023, Expires: 06/27/2024 BASIC METABOLIC PANEL Lab Routine A-fib ([facility]) Cellulitis JORGE (acute kidney injury) ([facility]) Expected: 06/28/2023, Expires: 06/27/2024 PT INR Lab Routine A-fib ([facility]) Cellulitis JORGE (acute kidney injury) ([facility]) Expected: 06/28/2023, Expires: 06/27/2024 Scheduled Procedures Name Priority Associated Diagnoses Date/Ti me COLONOSCOPY FLEXIBLE PROXIMA L DIAGNOSTIC Recall Screening for colon cancer Health Maintenance Due Date Last Done Comments Cologuard 1997 Sigmoidoscopy 1997 Fecal Occult Blood Test 09/02/2009 09/02/2008, 05/04 Diabetic Eye Exam 12/30/2022 12/30/2021, , 12/28/2021, Additional history exists HbA1c 05/18/2023 11/16/2022, 10/15, 05/13/2022, Additional history exists GFR 08/24/2023 02/23/2023, 120 06/2022, 11/16/2022, Additional history exists Albumin/Creatinine Ratio 11/17/2023 023, 05/13/2022, 09/29/2021, Additional history exists CKD PHOS USE SMARTSET 98469 11/17/2023 10/0 05/2022, 09/29/2021, 05/12/2021, Additional history exists Diabetic Foot Exam 11/17/2023 11/16/2022, 0 05/05/2021, 11/22/2017, Additional history exists CKD HGB USE SMARTSET 91054 01/18/202401/17, 01/17/2023, 11/16/2022, Additional history exists Depression [...] this encounter Medical Devices Implanted Type Area Workers Compensation Paralegal Device Identifier Shelf Expiration Date Model / Serial / Lot Shaft Fibula 6cm [id number] - [id number] Implanted:Qty: 1 on 09/05/2008 [place] [facility] Tissue - Human N/A: Spine Cervical MUSCULOSKELETAL TRANSPLANT FND 04/20/2010 [id number] / [id number] / Stent Eso Gw 22x70 [id number] - [id number] Implanted:Qty: 1 on 01/21/2008 at [place] [facility] [place] N/A: Esophagus [employer] 04/12/2009 [id number] / / [id number] Depuy Uniplate 32 Implanted:Qty: 1 on 09/05/2008 at [place] [facility] [place] N/A: Spine Cervical TAMMY & TAMMY DEPUY 1897--302 / / Depuy Uniplate Screw 14mm Implanted:Qty: 2 on 09/05/2008 at [place] [facility] [place] N/A: Spine Cervical TAMMY & TAMMY DEPUY 1897--017 / / Depuy Lordotic Bengal Cage Implanted:Qty: 1 on 05/07/2010 at [place] [facility] [place] N/A: Neck 1773-06-146 / [id number] / Plate Zach 3 Level Ti 54mm - [id number] Implanted:Qty: 1 on 05/07/2010 at [place] [facility] [place] N/A: Neck JNJ : DEPUY SPINE [id number] / / Screw Zach Const St Ti 14mm - [id number] Implanted:Qty: 4 on 05/07/2010 at [place] [facility] [place] N/A: Neck JNJ : DEPUY SPINE [id number] / / Screw 3.5x14 Mntr Fa [id number] - [id number] Implanted:Qty: 8 on 05/07/2010 at [place] [facility] [place] N/A: Spine Cervical JNJ : ETHICON CARDIOVATIONS [id number] / / Jarrell [id number] - [id number] Implanted:Qty: 1 on 05/07/2010 at [place] [facility] [place] N/A: Spine Cervical JNJ : ETHICON CARDIOVATIONS [id number] / / Screw Inner Mntr [id number] - [id number] Implanted:Qty: 8 on 05/07/2010 at [place] [facility] [place] N/A: Spine Cervical JNJ : ETHICON CARDIOVATIONS [id number] / / Envista Intraocular Lens Implanted:Qty: 1 on 03/10/2022 by Liang Marshall MD at OR [facility] Right: Eye BAUSCH & LOMB 08/13/2023 [id number] / [id number] / [id number] Envista Intraocular Lens Implanted:Qty: 1 on 03/24/2022 by Liang Marshall MD at OR [facility] Left: Eye BAUSCH & LOMB 07/13/2024 [id number] / [id number] / [id number] documented as of this encounter Visit Diagnoses Diagnosis A-fib (HCC)- Primary Atrial fibrillation Cellulitis Cellulitis and abscess of unspecified site JORGE (acute kidney injury) (HCC) Acute kidney failure, unspecified documented in this encounter Advance Directives Documents on File Type Date Recorded Patient Security Control Room Officer Expl anation POLST 01/26/2021 [place] [...] the patient have Health Care Power of Basketball Assembler? No Code Status History Code Status Date Activated Date Inactivated Comments No Code 03/10/2022 7:41 AM 03/10/2022 2:02 PM This order reflects the patients wishes and were consensually agreed upon. Question Answer Comments Discussion of Advance Directives occurred with: Patient Does the patient have a Living Will? No Does the patient have Health Care Power of Basketball Assembler? No Full Code 05/07/2010 8:55 AM 05/11/2010 9:01 PM This order reflects the patients wishes and were consensually agreed upon. Question Answer Comments Discussion of Advance Directives occurred with: Patient Does the patient have a Living Will? No Does the patient have Health Care Power of Basketball Assembler? No Full Code 05/07/2010 6:07 AM [...] the patient have Health Care Power of Basketball Assembler? No Care Teams Client Support Coordinator Relationship Specialty Start Date End Date Jocelyne Desai DO [address] [place] [address] [place] [address] PCP - General Internal Medicine 11/09/16 documented as of this encounter
--- OUTSIDE RECORDS SUMMARY | 2023-08-01 09:37 | External Medical Summary ---
Author Name Unknown Address Unknown Organization [facility]:LABORATORY [facility] [address] [place] [address] Laboratory Report Ordering Provider Test Date Status MOE LOPEZ 06/28/2023 06:15:00 Final Observation Date Value Abnormality Reference (Units ) Status SYNC LEUKOCYTES IN BLOOD BY AUTOMATED COUNT 06/28/2023 06:15:00 4.18 4.00-10.80 (K/uL) Final Segs 06/28/2023 06:15:00 59.6 40.0-75.0 (%) Final Lymphs % 06/28/2023 06:15:00 21.5 18.0-42.0 (%) Final Monos 06/28/2023 06:15:00 15.1 Above high normal 1.0-11.0 (%) Final Eosinophils 06/28/2023 06:15:00 3.1 0.0-6.0 (%) Final Basos 06/28/2023 06:15:00 0.7 0.0-2.0 (%) Final Absolute Segs 06/28/2023 06:15:00 2.49 1.80-7.70 (K/uL) Final Lymphs, absolute 06/28/2023 06:15:00 0.90 Below low normal 1.00-4.80 (K/ul) Final Monos, Abs 06/28/2023 06:15:00 0.63 0.00-1.10 (K/uL) Final Eos, Abs 06/28/2023 06:15:00 0.13 0.00-0.70 (K/uL) Final Basos, Abs 06/28/2023 06:15:00 0.03 0.00-0.20 (K/uL) Final Performing Location LABORATORY [facility] [address] [place] [address]
--- OUTSIDE RECORDS SUMMARY | 2023-08-01 09:37 | External Medical Summary | Summary of Care ---
Author Name Unknown Organization [facility] Address [address] [facility] [place] [address] Phone [phone] Care Team Providers Care Oleo Hasher And Renderer Name Role Phone Desai Jocelyne Briggs Primary Care Provider + [phone] Reason for Visit * Reason Comments Dosage Adjustment Via Phone (anticoag Cl inic) * Evaluate & Treat - Unlimited Visits (Within 3 days (urgent)) - Authorized Specialty Diagnoses / Procedures Referred By Mingo de paz Referred To Contact [facility] / Pharmacy Diagnoses Chronic atrial fibrillation (HCC) Ryanne Ramos PA-C [address] [place] [address] Referral ID Status Reason Start Date Expiration Date Visits Requested Visits Authorized [id number] Authorized Specialty Services Required 06/27/2023 12/24/2023 99 99 Encounter Details Date Type Department Care Team (Latest Contact Info) Description 06/28/2023 6:45 AM EDT Anticoagulation Pharmacy Call Center [address] [facility] [place] [address] [facility] 58 60 [facility] [place] [address] Chronic atrial fibrillation (HCC)* Allergies No known [...] original. Good connectivity [facility] for wound care [phone] Televideo if needed. Problem Noted Date Diagnosed [...] with podiatry,. Letter in chart from [facility] podiatry they were unable to [...] ICD-10 update of inactive term PLATT RESEARCH OTHER*[id number] 02/20/2007 ADVANCE DIRECTIVE INFORMATION 01/19/2005 Overview: Yes, [...] office early next week will need [facility] provider recheck Multiple and open wound [...] 11/17/19 23 LUMBAGO 12/24/2002 05/09/2007 LOC PRIM [id number] 12/24/200208/13 DEGENERATIVE SKIN DISORD 12/24/2002 VERTEBRAL FX [...] mRNA, LNP-s, No Pre serve, 2-Dose Series ([employer]) 02/16/2021,04/09/2020,03/19/2020 COVID-19, MRNA-LNP, 23-24, P F, 30 [...] Progress Notes * Sofie Danielle RPh - 06/28/2023 2:55 PM EDT Images from the original note were not included. Medication Therapy Disease Management - Anticoagulation Patient: Lg Cooley | : 1950 Custodial/SNF Patient Anticoagulation Encounter Patient is a resident at: [facility] -- Fax sent to number listed above detailing plan of care below. Please notify clinic with any unusual brusing or bleeding, N/V/D, medication or diet changes or anymissed or extra doses of Coumadin. Subjective Patient-Reported Symptoms: Patient Findings Positives: Change in medications (Lovenox bridge 90 mg daily to therapeutic INR; vit K administeredinpatient due to elevated INR), Hospital admission (Admitted to [facility] 06/13 - 06/26 for RLE cellulitis complicated with chronic edema) Objective Current Warfarin Dose As of 06/28/2023 Warfarin maintenance plan: 3 mg (3 mg x 1) every Mon, Mon, Mon; 1.5 mg (3 mg x 0.5) all other days INR Result As of 06/28/2023 INR goal: 2.0-3.0 INR used for dosin.2 (06/27/2023) Assessment & Plan Warfarin Plan As of 06/28/2023 Full warfarin instructions: 06/27: 3 mg; 06/28: 3 mg + Enoxaparin 90 mg every 24 hours Next INR check: 06/30/2023 Repeat PT/INR in 2 day(s) Weekly dose: N/A Additional Dosing Information: Description [facility] Nurses; fax - [phone] ([facility]) Sofie Danielle RPh Clinical Pharmacist 06/28/2023, 2:55 PM documented in this encounter Plan of Treatment Upcoming Encounters Date Type Department Care Team (Late st Contact Info) Description 06/30/2023 8:30 AM EDT Custodial Visit [address] [place] [address] Primitivo Heck MD [address] [place] [address] [place] [address] 11/20/2023 2:00 PM EDT Office Visit Nephrology [address] [place] [address] Marycarmen Kowalski PA-C [address] [place] [address] 02/20/2024 12:30 PM EST Nurse Only Ancillary [address] [place] [address] [place], Nurse Annual Wellness [address] [place] [address] [place] [address] Scheduled Procedures Name Priority Associated Diagnoses Date/Ti [...] Additional history exists CKD PHOS USE SMARTSET 57819 11/17/2023 1005/2022, 09/29/2021, 05/12/2021, Additional history exists Diabetic Foot Exam 11/17/2023 11/16/2022, 0 05/05/2021, 11/22/2017, Additional history exists GFR 12/29/2023 06/28/2023, 02/13, 01/17/2023, Additional history exists Depression Screening 02/17/2024 02/16/2023 CKD HGB USE SMARTSET 99263 06/27/202406/27, 06/28/2023, 01/17/2023, Additional history exists DTaP,Tdap,and [...] this encounter Medical Devices Implanted Type Area Sort Manager Device Identifier Shelf Expiration Date Model / Serial / Lot Shaft Fibula 6cm [id number] - [id number] Implanted:Qty: 1 on 09/05/2008 at [place] [facility] [place] Tissue - Human N/A: Spine Cervical MUSCULOSKELETAL TRANSPLANT FND 04/20/2010 [id number] / [id number] 0P / Stent Eso Gw 22x70 [id number] - [id number] Implanted:Qty: 1 on 01/21/2008 at OR [facility] N/A: Esophagus ALVEOLUS INC 04/12/2009 34113-659 / / [id number] Depuy Uniplate 32 Implanted:Qty: 1 on 09/05/2008 at OR [facility] N/A: Spine Cervical TAMMY & TAMMY DEPUY 1897-02-302 / / Depuy Uniplate Screw 14mm Implanted:Qty: 2 on 09/05/2008 at OR [facility] N/A: Spine Cervical TAMMY & TAMMY DEPUY 1897-06-017 / / Depuy Lordotic Bengal Cage Implanted:Qty: 1 on 05/07/2010 at OR [facility] N/A: Neck 1773-06-146 / [id number] / Plate Zach 3 Level Ti 54mm - [id number] Implanted:Qty: 1 on 05/07/2010 at OR [facility] N/A: Neck JNJ : DEPUY SPINE [id number] / / Screw Zach Const St Ti 14mm - [id number] Implanted:Qty: 4 on 05/07/2010 at OR [facility] N/A: Neck JNJ : DEPUY SPINE [id number] / / Screw 3.5x14 Mntr Fa [id number] - [id number] Implanted:Qty: 8 on 05/07/2010 at OR [facility] N/A: Spine Cervical JNJ : ETHICON CARDIOVATIONS [id number] / / Jarrell [id number] - [id number] Implanted:Qty: 1 on 05/07/2010 at [place] [facility] N/A: Spine Cervical JNJ : ETHICON CARDIOVATIONS [id number] / / Screw Inner Mntr [id number] - [id number] Implanted:Qty: 8 on 05/07/2010 at [place] [facility] [place] N/A: Spine Cervical JNJ : ETHICON CARDIOVATIONS [id number] / / Envista Intraocular Lens Implanted:Qty: 1 on 03/10/2022 by Liang Marshall MD at [place] [facility] Right: Eye BAUSCH & LOMB 08/13/2023 [id number] / [id number] / [id number] Envista Intraocular Lens Implanted:Qty: 1 on 03/24/2022 by Liang Marshall MD at OR [facility] Left: Eye BAUSCH & LOMB 07/13/2024 [id number] / [id number] / [id number] documented as of this encounter Procedures Procedure Name Priority Date/Time Associated Diagnosis Comments OUTSIDE LAB-PT/INR Routine 06/27/2023 OUTSIDE LAB-PT/INR Routine 06/20/2023 OUTSIDE LAB-PT/INR Routine 06/19/2023 OUTSIDE LAB-PT/INR Routine 06/18/2023 OUTSIDE LAB-PT/INR Routine 06/17/2023 OUTSIDE LAB-PT/INR Routine 06/16/2023 OUTSIDE LAB-PT/INR Routine 06/15/2023 OUTSIDE LAB-PT/INR Routine 06/14/2023 documented in this encounter Results * OUTSIDE LAB-PT/INR (06/27/2023) [facility] INR-OUTSIDE LAB 1.2 06/27/2023 History Per Patient LABORATORY * OUTSIDE LAB-PT/INR (06/20/2023) [facility] INR-OUTSIDE LAB 3.1 06/20/2023 History Per Patient LABORATORY * OUTSIDE LAB-PT/INR (06/19/2023) [facility] INR-OUTSIDE LAB 3.5 06/19/2023 History Per Patient LABORATORY * OUTSIDE LAB-PT/INR (06/18/2023) [facility] INROUTSIDE LAB 4.7 06/18/2023 History Per Patient LABORATORY * OUTSIDE LAB-PT/INR (06/17/2023) [facility] INR-OUTSIDE LAB 6.2 06/17/2023 History Per Patient LABORATORY * OUTSIDE LAB-PT/INR (06/16/2023) INR-OUTSIDE LAB 4.9 06/16/2023 History Per Patient LABORATORY * OUTSIDE LAB-PT/INR (06/15/2023) INR-OUTSIDE LAB 3.7 06/15/2023 History Per Patient LABORATORY * OUTSIDE LAB-PT/INR (06/14/2023) INR-OUTSIDE LAB 2.5 06/14/2023 History Per Patient LABORATORY documented in this encounter Visit Diagnoses Diagnosis Chronic atrial fibrillation (HCC)- Primary Atrial fibrillation documented in this encounter Advance Directives Documents on File Type Date Recorded 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 Question Answer Comments Discussion of Advance Directives occurred with: Patient Does the patient have a Living Will? No Does the patient have Health Care Power of Club Waiter/Waitress? No Code Status History Code Status Date Activated Date Inactivated Comments No Code 03/10/2022 7:41 AM 03/10/2022 2:02 PM This order reflects the patients wishes and were consensually agreed upon. Question Answer Comments Discussion of Advance Directives occurred with: Patient Does the patient have a Living Will? No Does the patient have Health Care Power of Club Waiter/Waitress? No Full Code 05/07/2010 8:55 AM 05/11/2010 9:01 PM This order reflects the patients wishes and were consensually agreed upon. Question Answer Comments Discussion of Advance Directives occurred with: Patient Does the patient have a Living Will? No Does the patient have Health Care Power of Club Waiter/Waitress? No Full Code 05/07/2010 6:07 AM 05/07/2010 [...] the patient have Health Care Power of Club Waiter/Waitress? No Care Teams Oleo Hasher And Renderer Relationship Specialty Start Date End Date Jocelyne Desai DO [address] [place] [address] [place] [address] PCP - General Internal Medicine 11/09/16 documented as of this encounter"
--- OUTSIDE RECORDS SUMMARY | 2023-08-01 09:37 | External Medical Summary ---
Author Name Unknown Address Unknown Organization [facility]:LABORATORY [facility] [address] [place] [address] Laboratory Report Ordering Provider Test Date Status MOE LOPEZ 06/28/2023 06:15:00 Final Observation Date Value Abnormality Reference (Units ) Status BUN 06/28/2023 06:15:00 68 Above high normal 6-20 (mg/dL) Final Creatinine 06/28/2023 06:15:00 3.0 Above high normal 0.6-1.2 (mg/dL) Final Glomerular filtration rate/1.73 sq M.predicted [Volume Rate/Area] in Serum, Plasma or Blood by Creatinine-based formula (CKD-EPI) 06/28/2023 06:15:00 22 Below low normal >=60 (mL/min) Final eGFR is calculated based on the CKD-EPI 2020 equation Sodium 06/28/2023 06:15:00 136 135-146 (m mol/L) Final Potassium 06/28/2023 06:15:00 4.1 3.5-5.1 (m mol/L) Final Cl 06/28/2023 06:15:00 97 Below low normal 98- 107 (mmol/L) Final CO2 06/28/2023 06:15:00 29 22-32 (mmo l/L) Final Anion gap 06/28/2023 06:15:00 10 7-15 (mmol /L) Final Glucose 06/28/2023 06:15:00 107 70-120 (mg /dL) Final Calcium 06/28/2023 06:15:00 8.6 8.4-10.2 ( mg/dL) Final Performing Location [facility] [address] [place] [address]
--- OUTSIDE RECORDS SUMMARY | 2023-08-01 09:37 | External Medical Summary | Summary of Care ---
Author Name Unknown Organization [facility] Address [address] [facility] [place] [address] Phone [phone] Care Team Providers Care Auto Winder Name Role Phone DesaiElissaJocelyne Briggs DO Primary Care Provider + [phone] Reason for Visit * Reason Comments Dosage Adjustment Via Phone (anticoag Cl inic) Encounter Details Date Type Department Care Team (Latest Contact Info) Description 06/21/2023 6:45 AM EDT Anticoagulation Pharmacy Call Center [phone] [facility] [place] [address] [facility] [address] [place] [address] Chronic atrial fibrillation (HCC)* Allergies No known [...] different from the original. Good connectivity [facility] for wound care [phone] Televideo if needed. Problem Noted Date Diagnosed [...] with podiatry,. Letter in chart from [facility] podiatry they were unable to get [...] ICD-10 update of inactive term PLATT RESEARCH OTHER*[id number] 02/20/2007 ADVANCE DIRECTIVE INFORMATION 01/19/2005 Overview: Yes, [...] [place] office early next week will need [facility] provider recheck Multiple and open wound [...] 11/17/19 23 LUMBAGO 12/24/2002 05/09/2007 LOC PRIM [id number] 12/24/200208/13 DEGENERATIVE SKIN DISORD 12/24/2002 VERTEBRAL FX [...] Progress Notes * Estefania Palacios, [facility] - 06/21/2023 2:02 PM EDT PT remains admitted to [facility]. Per CM notes, Radha Grimaldo has a bed but pt not medically ready for d/c. [facility] will continue to follow up for d/c plans. Estefania Palacios Rp, Pharm.D. Clinical Pharmacist [facility] ([facility]) (formerly Telepharmacy) [phone] 06/21/2023,2:04 PM documented in this encounter Plan of Treatment Upcoming Encounters Date Type Department Care Team (Late st Contact Info) Description 06/30/2023 8:30 AM EDT Care Home Visit [address] [place] [address] Primitivo Heck MD [address] [place] [address] [place] [address] 11/20/2023 2:00 PM EDT Office Visit Nephrology [address] [place] [address] ZemaitisMarycarmen PA-C [address] [place] [address] 02/20/2024 12:30 PM EST Nurse Only Ancillary [address] [place] [address] [place], Nurse Annual [address] [place] [address] Scheduled Procedures Name Priority Associated Diagnoses Date/Ti id COLONOSCOPY FLEXIBLE PROXIMA L DIAGNOSTIC Recall Screening for colon cancer Health Maintenance Due Date Last Done Comments Cologuard 1997 Sigmoidoscopy 1997 Fecal Occult Blood Test 09/02/2009 09/02/2008, 05/04 Diabetic Eye Exam 12/30/2022 12/30/2021, , 12/28/2021, Additional history exists HbA1c 05/18/2023 11/16/2022, 10/15, 05/13/2022, Additional history exists Albumin/Creatinine Ratio 11/17/2023 023, 05/13/2022, 09/29/2021, Additional history exists CKD PHOS USE SMARTSET 18265 11/17/2023 10/0 05/2022, 09/29/2021, 05/12/2021, Additional history exists Diabetic Foot Exam 11/17/2023 11/16/2022, 0 05/05/2021, 11/22/2017, Additional history exists GFR 12/29/2023 06/28/2023, 02/13, 01/17/2023, Additional history exists Depression Screening 02/17/2024 02/16/2023 CKD HGB USE SMARTSET 14218 06/27/202406/27, 06/28/2023, 01/17/2023, Additional history exists DTaP,Tdap,and [...] this encounter Medical Devices Implanted Type Area Lens Hardener Device Identifier Shelf Expiration Date Model / Serial / Lot Shaft Fibula 6cm [id number] - [id number] Implanted:Qty: 1 on 09/05/2008 at OR [facility] Tissue - Human N/A: Spine Cervical [employer]CULOSKELETAL TRANSPLANT FND 04/20/2010 [id number] / [id number] / Stent Eso Gw 22x70 [id number] - [id number] Implanted:Qty: 1 on 01/21/2008 at OR [facility] N/A: Esophagus [employer] 04/12/2009 [id number] / / [id number] Depuy Uniplate 32 Implanted:Qty: 1 on 09/05/2008 [...] [facility] N/A: Neck [id number] / [id number] / Plate Zach 3 Level Ti 54mm - [id number] Implanted:Qty: 1 on 05/07/2010 at OR [facility] N/A: Neck JNJ : [employer] [id number] / / Screw Zach Const St Ti 14mm - [id number] Implanted:Qty: 4 on 05/07/2010 at OR [facility] N/A: Neck JNJ : [employer] [id number] / / Screw 3.5x14 Mntr Fa [id number] - [id number] Implanted:Qty: 8 on 05/07/2010 at OR [facility] N/A: Spine Cervical JNJ : [employer] [id number] / / Jarrell [id number] - [id number] Implanted:Qty: 1 on 05/07/2010 at OR [facility] N/A: Spine Cervical JNJ : [employer] [id number] / / Screw Inner Mntr [id number] - [id number] Implanted:Qty: 8 on 05/07/2010 at OR [facility] N/A: Spine Cervical JNJ : [employer] [id number] / / Envista Intraocular Lens Implanted:Qty: 1 on 03/10/2022 by Liang Marshall MD at OR [facility] Right: Eye [employer] 08/13/2023 [id number] / [id number] / [id number] Envista Intraocular Lens Implanted:Qty: 1 on 03/24/2022 by Liang Marshall MD at OR [facility] Left: Eye BAUSCH [employer] LOMB 07/13/2024 [id number] / [id number] / [id number] documented as of this encounter Visit Diagnoses Diagnosis Chronic atrial fibrillation (HCC)- Primary Atrial fibrillation documented in this encounter Advance Directives Documents on File Type Date Recorded 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 No Code Status History Code Status Date Activated Date Inactivated Comments No Code 03/10/2022 7:41 AM 03/10/2022 2:02 PM This order reflects the patients wishes and were consensually agreed upon. Question Answer Comments Discussion of Advance Directives occurred with: Patient Does the patient have a Living Will? No Does the patient have Health Care Power of Refractory Mixer? No Full Code 05/07/2010 8:55 AM 05/11/2010 9:01 PM This order reflects the patients wishes and were consensually agreed upon. Question Answer Comments Discussion of Advance Directives occurred with: Patient Does the patient have a Living Will? No Does the patient have Health Care Power of Refractory Mixer? No Full Code 05/07/2010 6:07 AM 05/07/2010 [...] the patient have Health Care Power of Refractory Mixer? No Care Teams Auto Winder Relationship Specialty Start Date End Date Jocelyne Desai DO [address] [place] [address] [place] [address] PCP - General Internal Medicine 11/09/16 documented as of this encounter
--- OUTSIDE RECORDS SUMMARY | 2023-08-01 09:37 | External Medical Summary | Continuity Of Care Document ---
Author Name Unknown Address [address] [place] [address] Organization [facility] ( ) Care Team Providers Care Civil Engineering Intern Name Role Phone Maria R Tremaineyudith Primary Care Provider [phone] VITAL SIGNS Date Time Diastolic blood pressure Systolic blood pressure Body height Body weight Temperature SpO2 Blood Sugar Pulse Respirations 26996 514 10873 9 204.00 [place] [address] 514 14559 1 71 NI 42560 514 57644 7 67.00 mm[Hg] - Sitting 110.00 mm[Hg] [...]
--- OUTSIDE RECORDS SUMMARY | 2023-08-01 09:37 | External Medical Summary | Summary of Care ---
Author Name Unknown Organization [facility] Address [address] [place] [place] [address] Phone [phone] Care Team Providers Care Associate Professor Of Music Name Role Phone Lloyd Jocelyne Briggs Primary Care Provider + [phone] Reason for Visit * Reason Onset Date Comments Senior Living Visit 06/28/2023 Encounter Details Date Type Department Care Team (Latest Contact Info) Description 06/27/2023 9:30 AM EDT Senior Living Visit [facility] [address] [place] [address] Ryanne Ramos PA-C [address] [place] [address] Cellulitis of right leg*; JORGE (acute kidney injury) ([facility]); 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, with fat layer exposed, unspecified part of foot (HCC); 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 kidney disease (HCC); Chronic atrial fibrillation ([facility]); Cerebrovascular disease, arteriosclerotic, post-stroke; Cardiac pacemaker in situ; Type 2 diabetes mellitus with peripheral vascular disease (HCC); DYSLIPIDEMIA, GOAL LDL BELOW 100; MRSA (methicillin resistant Staphylococcus aureus) Allergies No known active allergiesdocumented as of this encounter (statuses as of 06/28/2023) Medications Medication Sig Dispensed Refills Start Date End Date Status ACETAMINOPHEN 500 MG PO TABS 2 tabs every 6 hours as needed for discomfort 0 4 Active Cyanocobalamin (VITAMIN B-12) 1000 MCG Tablet Take 1 Tablet by mouth every evening. 0 8 Active Cholecalciferol (VITAMIN D3) 50 MCG (1999 UT) Capsule Take 1 Capsule by mouth every evening. 0 9 Active Flintstones w/Iron 18 MG Oral Tablet Chewable Take by mouth 1 Tablet every evening . 0 1 Active Magnesium Oxide 400 MG Oral Capsule Take 1 Cap by mouth 2 times a day. 200 Cap 5 1 Active Additional Information Patient taking differently:400 mg OralDaily(AM), Reported on 01/10/2023 Aspirin 81 MG Oral Tablet Delayed Release Take 1 Tablet by mouth every evening. 0 Active Tamsulosin HCl 0.4 MG Oral Capsule (Flomax) TAKE 1 CAPSULE BY MOUTH IN THE MORNING 100 Capsule 3 3 Active Metoprolol Succinate ER 25 MG Oral Tablet Extended Release 24 Hour (toPROL XL) Take 1 Tablet by mouth in the morning. 100 Tablet 3 3 Active Warfarin Sodium 3 MG Oral Tablet (Coumadin)Indica tions:Chronic atrial fibrillation (HCC) TAKE 1 TO 2 TABLETS BY MOUTH DAILY, DIRECTED BY COUMADIN CLINIC 180 Tablet 3 3 02/04/20 24 Active Atorvastatin Calcium 40 MG Oral Tablet (Lipitor) TAKE ONE TABLET BY MOUTH EVERY DAY 100 Tablet 2 4 Active Boost Oral Liquid Take 237 mL by mouth in the morning and 237 mL at noon and 237 mL in the evening. Take before meals. 0 4 Active Enoxaparin Sodium 60 MG/0.6ML Injection Solution Prefilled Syringe (Lovenox) Inject 90 mg under the skin in the morning and 90 mg before bedtime. 0 4 Active Ozempic (0.25 or 0.5 MG/DOSE) 2 MG/3ML Solution Pen-injector (Semaglutide(0.2 5 or 0.5MG/DOS)) Inject 0.25 mg under the skin once a week 0 4 Active Midodrine HCl 2.5 MG Oral Tablet (Proamatine) Take 1 Tablet by mouth in the morning and 1 Tablet at noon and 1 Tablet in the evening. 0 4 Active Soaanz 40 MG Oral Tablet (Torsemide) Take 1 Tablet by mouth in the morning and 1 Tablet before bedtime. 0 4 Active Potassium Chloride Candi ER 20 MEQ Oral Tablet Extended Release Take 1 Tablet by mouth in the morning. 0 4 Active Sennosides-Docus ate Sodium 8.6-50 MG Oral Tablet (Senna S) Take 1 Tablet by mouth in the morning. 0 4 Active oxyCODONE HCl 5 MG Oral Tablet (Oxy IR) Take 1 Tablet by mouth every 6 hours as needed for Pain, Moderate or Pain, Severe. 0 4 Active Acetaminophen 325 MG Oral Tablet (Tylenol) Take 2 Tablets by mouth every 4 hours as needed for Fever >38C(100.5F) or Pain, Mild. 0 4 Active Cyclobenzaprine HCl 10 MG Oral Tablet (Flexeril) Take 1 Tablet by mouth every 8 hours as needed for Muscle spasms. 0 4 Active Vitron-C 65-125 MG Oral Tablet (Iron-Vitamin C 65-125 mg per tab) Take 1 Tablet by mouth every evening. 100 Tablet 3 3 06/28/19 24 Discontinued(Med ication List Clean Up) Furosemide 20 MG Oral Tablet (Lasix)Indicatio ns:Stage 3 chronic kidney disease, unspecified whether stage 3a or 3b CKD (HCC),Persistent proteinuria TAKE ONE TABLET BY MOUTH EVERY DAY NEEDED FOR SWELLING 100 Tablet 1 4 06/28/19 24 Discontinued(Med ication List Clean Up) Losartan Potassium 25 MG Oral Tablet (Cozaar) Take 1 Tablet by mouth in the morning. 100 Tablet 1 4 06/28/19 24 Discontinued(Med ication List Clean Up) Ozempic (0.25 or 0.5 MG/DOSE) 2 MG/3ML Solution Pen-injector (Semaglutide(0.2 5 or 0.5MG/DOS)) Inject 0.5 mg under the skin once a week 9 mL 1 4 06/28/19 24 Discontinued Daily Cody Oral Tablet Take 1 Tablet by mouth daily. 0 4 06/28/19 24 Discontinued(Med ication List Clean Up) documented as of this encounter (statuses as of 06/28/2023) Active Problems Patient Care Coordination No te Formatting of this note migh t be different from the original. Good connectivity [facility] for wound care [phone] Televideo if needed. 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 He has significant history DM and PVD and recommended he still follow up with podiatry,. Letter in chart from [facility] podiatry they were unable to get in [...] ICD-10 update of inactive term [place] [facility]EARCH OTHER*[id number] 02/20/2007 ADVANCE DIRECTIVE INFORMATION 01/19/2005 Overview: Yes, [...] 11/17/19 23 LUMBAGO 12/24/2002 05/09/2007 LOC PRIM [id number] 12/24/200208/13 DEGENERATIVE SKIN DISORD 12/24/2002 VERTEBRAL FX [...] Progress Notes * Ryanne Ramos PA-C - 06/28/2023 5:27 PM EDT ON SERVICE NOTE Name: Lg Cooley Date of : 1950 This note pertains to care provided at [facility]. Please see facility medical record for original note. This note is not to be edited or addended in [employer]. Editing or addending needs to occur in the facilities medical record. Subjective: Lg Cooley is a 72 year old male. Pt is seen today for admission to this facility. Prior to admission at this facility none. Inpatient hospital records, labs, and imaging were reviewed, According to the hospital discharge summary: " 72 year old male, patient of Dr Desai is admitted to [facility] from [facility] on 06/27/23 for rehabilitation. Pt with history of AF (on Coumadin), DM with CKD stage 3, diabetic eye disease, DM neuropathy and PVD, s/p right toe amputations, HTN, s/p ischemic MCA stroke (2018), s/p pacemaker, HLD, depression, CHF, sleep apnea presented to [facility] ED on 06/14/23 with several week history of swelling, redness and blisters of his RLE. Pt has been followed by visiting nursing for dressing changes of DM right toe ulcer. Pt was recently admitted to [facility] from 05/06/23 through 05/25/23 for LLE cellulitis secondary to fall and developed MRSA resistance. He was treated with course of Daptomycin, Zosyn and transitoned to Augmentin. He was noted to have possible 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 stenosis and recommended to followup as outpatient. He also had JORGE which was treated. In the ED, T: 36.9 C. HR: 60 RR: 20 BP: 114/63mmHg. O2 saturation: 98% on room air. CBC: WBC: 13.51 H/H: 10.5 and 32.1 PLT: 103,000 creatinine: 3.16 with baseline 1.2 to 1.4. Calcium:7.9. Glucose: 105mg% BUN: 57. Total bilirubin: 1.3. Direct bilirubin: 0.6, AST: 95, ALT: 59. Lytes normal. INR: 2.5. phosphorus high: 5.0. Mg 1.6 which was repleted. A1C: 6.0%. Troponin, Lactate normal. Procalcitonin: 9.33. HBSAB nonreactive. JULISSA negative. Neut cyto Ab negative. Histone Ab <1.0.C3 low 73. C4, CH50 normal. Free [place] inocente 110.9. free lamda inocente 93.9. 24 hour protein inocente 896. MRSA DNA positive. Covid testing negative. Urine C&S grew >100,000 S aureus and 60,000 Enterococcus faecalis. Blood C&S no growth. Echocardiiogram revealed LVEF 55 to 60%. Mild LVH, LA severely dilated. Moderate aortic valve sclerosis without stenosis. Mild MR, moderate TR. EKG: ventricular paced rhythm with underlying AF. No acute changes. Chest xray showed cardiomegaly with pacemaker without congestive changes. Venous dopperof RLE showed reactive right inguinal lymphadenopathy without DVT. . Pt was admitted and begun on Daptomycin and Zosyn. ID consult was obtained. Pt's Zosyn was changed to Cefepime 1 G IV Q 12 hours and addition of Flagyl 500mg TID in setting of JORGE. Daptomycin was continued. Recommendation for CT scan of RLE and foot which showed: marked nonspecific subcutaneous edema of calf. No evidence of abscess though limited with noncontrast CT scan. Ulcer overlying head of right first metatarsal. Nephrology consult was obtained due to pt's significant JORGE of creatinine rising as high as 3.43 despite 2 L NS. Urine sediment consistent with ATN. IVF were held. Renal US showed no hydronephrosis, mild cortical thinning age related. Trace perinephric fluid and cholelithiasis. Recommendations to avoid nephrotoxic drugs, hold Losartan, Lasix and NSAIDs. Podiatry consult was obtained. Pt's right foot ulceration was debrided to healthier base at bedside. Dressing consisted of pomogram/collagen dressing with adhesive border dressing. It was noted that pt's cellulitis is the result of pt's venous insufficiency and venous ulcerations. Nephrology followup visit showed improving Stage 3 nonoliguric JORGE on baseine proteinuric CKD 3 B. Cause is ischemic ATN. 1.2 G daily proteinuria. Creatinine peaked at 5.1 on 06/17 and now beginning totrend downward. Following discussion with podiatry regarding concern that volume overload is driving leg lesions orat least slowing recovery. A trial of Lasix 20mg IV QID along with KCl 20mEq dally, fluid restriction: 1.5 L. Pt was begun on Midodrine 2.5mg TID for hypotension. Discharge hemoglobin: 9.3. creatinine 2.89. Pt is now admitted to [facility] on 06/27/23 for rehabilitation Code status is Full Code . This was discussed in full. Patient Active Problem List Diagnosis Code SPINAL STENOSIS-LUMBAR M48.061 ADVANCE DIRECTIVE INFORMATION Vitamin D deficiency E55.9 Cervical spinal stenosis M48.02 Type 2 diabetes mellitus with hemoglobin A1c goal of less than 7.5% ([facility]) E11.9 HTN, goal below 140/90 I10 DYSLIPIDEMIA, GOAL LDL BELOW 100 E78.5 [place] [employer] OTHER*[id number] Erectile dysfunction N52.9 DM neuropathy, type II diabetes mellitus ([facility]) E11.40 Paroxysmal SVT (supraventricular tachycardia) ([facility]) I47.10 Cardiac pacemaker in situ Z95.0 Venous insufficiency of both lower extremities I87.2 Microalbuminuric diabetic nephropathy ([facility]) E11.21 Chronic atrial fibrillation ([facility]) I48.20 Peripheral sensory neuropathy G60.8 Vitamin B12 deficiency E53.8 Cerebrovascular disease, arteriosclerotic, post-stroke I67.2, Z86.73 Status post amputation of lesser toe of right foot ([facility]) Z89.421 Type 2 diabetes, controlled, with peripheral neuropathy ([facility]) E11.42 Type 2 diabetes mellitus with peripheral vascular disease ([facility]) E11.51 Persistent proteinuria R80.1 H/O gastric bypass Z98.84 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 Z79.01 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 Nocturnal hypoxemia G47.34 Type 2 diabetes mellitus with stage 3b chronic kidney disease, with long-term current use of insulin ([facility]) E11.22, N18.32, Z79.4 Sleep apnea treated with nocturnal BiPAP G47.30 PAD (peripheral artery disease) ([facility]) I73.9 Hyperparathyroidism, secondary renal ([facility]) N25.81 Diabetes mellitus due to underlying condition with severe nonproliferative diabetic retinopathy with macular edema, unspecified eye ([facility]) E08.3419 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 kidney disease ([facility]) I13.0, I50.32, N18.32 Esophageal obstruction K22.2 S/P angioplasty with stent Z95.820 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, without long-term current use of insulin ([facility]) E11.3511 Chronic kidney disease, stage 3b ([facility]) N18.32 Non-pressure chronic ulcer of other part of right foot with unspecified severity ([facility]) L97.519 Acquired absence of right great toe ([facility]) Z89.411 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, with fat layer exposed ([facility])E11.621, L97.512 History of WV (myocardial infarction) I25.2 Trigger ring finger of left hand M65.342 Past Medical History: Diagnosis Date Amputated toe ([facility]) 05/06/11 2nd toe right foot- no osteomyelitis Atrial fibrillation ([facility]) Atrial fibrillation ([facility]) Atrial fibrillation ([facility]) B12 deficiency 12/21/2015 Background diabetic retinopathy(362.01) Cervical spinal stenosis 2007 Cervical spondylosis with myelopathy Cervical spondylosis with myelopathy 2008 Chronic atrial fibrillation ([facility]) 01/12/2015 Closed fracture of unspecified part of vertebral column without mention of spinal cord injury 1990 T8 Degeneration of lumbosacral intervertebral disc Degeneration of lumbosacral intervertebral disc Degeneration of thoracic intervertebral disc Degeneration of thoracic intervertebral disc Degenerative skin disorder Necrobiosis lipoidica Depressive disorder, not elsewhere classified Depressive disorder, not elsewhere classified Diabetic foot ulcer ([facility]) 04/27/2011 Displacement of cervical intervertebral disc without myelopathy 2008 C4-5 DM neuropathy, type II diabetes mellitus ([facility]) 07/30/2012 DM type 2 causing renal disease ([facility]) DIABETES TYPE II W RENAL MANIFEST DM type 2, goal A1c below 7 DM type 2, not at goal ([facility]) 1998 Dyslipidemia, goal LDL below 100 01/20/2009 [...] or foot 04/20/2005 Lumbago Microalbuminuric diabetic nephropathy ([facility]) 06/03/2014 Mixed dyslipidemia Morbid obesity, BMI not known ([facility]) Other B-complex deficiencies Other hammer toe (acquired) 11/13/2004 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 Paroxysmal SVT (supraventricular tachycardia) 04/23/2013 Perforation of esophagus 01/21/08 PERFORATED ESOPHAGUS 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 ([facility]) 07/30/2012 Peripheral sensory neuropathy 01/12/2015 Plantar fibromatosis 04/20/2005 Primary localized osteoarthrosis, lower leg OA of knees PVD (peripheral vascular disease) ([facility]) 11/09/2011 PVD (peripheral vascular disease) ([facility]) 11/09/2011 In a combination Rupture of flexor tendons of hand and wrist 1998 severed tendon index finger right hand Severe nonproliferative diabetic retinopathy(362.06) bilateral Spinal stenosis of lumbar region without neurogenic claudication Spinal stenosis of lumbar region without neurogenic claudication Toe osteomyelitis, right ([facility]) 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[facility]) 01/12/2015 Venous insufficiency Venous stasis of lower [...] DIAGNOSTIC performed by Janice Shoemaker DO atENDOSCOPY [facility] CYSTOSCOPY 02/16/2015 EGD, FLEXIBLE, DIAGNOSTIC 09/20/2007 UPPER GI ENDOSCOPY DIAGNOSTIC [place] WHITE [place] [facility]GD, FLEXIBLE, DIAGNOSTIC 01/04/2008 UPPER GI ENDOSCOPY DIAGNOSTIC performed by KAUSHAL WHITE [place] [facility] [place] [place]GD, FLEXIBLE, DIAGNOSTIC 03/21/2008 UPPER GI ENDOSCOPY DIAGNOSTIC performed [place] KAUSHAL WHITE [place] [facility] [place] [place]GD, FLEXIBLE, TRANSENDOSCOPIC DILATION <30MM 01/04/2008 UPPER GI ENDOSCOPY BALLOON DILATION LESS THAN 30MM performed by KAUSHAL WHITE [place] [facility] [place] EXPLORATION OF ABDOMEN 01/21/2008 EXPLORATORY LAPAROTOMY performed by KAUSHAL WHITE [place] [facility] [place] FORM SKIN PEDICLE, TRUNK 02/14/1956 to right forearm INFORMATION Gum surgery/cyst removed INFORMATION 02/13/2005 ORAL CYST REMOVAL INJECTION OF EYE DRUG Right 12/30/2021 # 1 Avastin OD, Dr. Hodge INJECTION OF EYE DRUG Right 04/01/2022 # 2 Avastin OD, Dr. Hodge INSERT/REPLACE PACEMAKER,ATRIAL/VENTRICULAR 04/11/2013 04/11/2013 placement of siingle-chamber pacemaker via left subclavian approach [facility] DR.Mar Garcia - symptomatic bradycardia LAPAROSCOPE PROCEDURE, LIVER 09/20/2007 UNLISTED LAPAROSCOPIC PROCEDURE LIVER performed by KAUSHAL WHITE [place] [facility] [place] LAPAROSCOPIC GASTRIC BYPASS/BHUPINDER-EN-Y 09/20/2007 LAPAROSCOPIC GASTRIC RESTRICTIVE BYPASS BHUPINDER EN Y performed by KAUSHAL WHITE [place] [facility] [place] LASER SURGERY OF INNER EYE STRANDS Bilateral "about 20- 25 years ago" MICROSURGERY ADD-ON 05/07/2010 MICROSURGICAL SURGERY REQUIRING MICROSCOPE LISTED SEPARATELY performed by GAVIN BHARDWAJ [place] [facility] [place] MRI FOOT WO CONTRAST 04/06/2011 Osteomyelitis of the distal phalanx of the 2nd digit. Reactive edema versus early osteomyelitis of the 2nd middle phalanx NECK SPINE FUSION (CERV, BELOW C2) 09/05/2008 ARTHRODESIS SPINE ANTERIOR CERVICAL performed by GAVIN BHARDWAJ [place] [facility] [place] NECK SPINE FUSION (CERV, BELOW C2) 05/07/2010 ARTHRODESIS SPINE ANTERIOR CERVICAL performed by GAVIN BHARDWAJ at [place] [facility] [place] NECK SPINE FUSION (CERV, BELOW C2) 05/07/2010 ARTHRODESIS SPINE POSTERIOR CERVICAL performed by GAVIN BHARDWAJ [place] [facility] [place] OTHER (INFORMATION) ACT 112 SIGNED 06/11/20 DR. HODGE OTHER (INFORMATION) Bilateral AVASTIN OU CONSENT DR. HDOGE/MITESH EXP. 12/30/22 PACEMAKER INSERTION PER 01/18/2023 Dr. Rodriguez [facility] PARTIAL AMPUTATION OF TOE Right 12/2020 3rd toe and release tendon of other toes at the same time. REMOVAL OF TONSILS, AGE 12+ REMOVE ADDED VERTEBRAL SEG, NECK 05/07/2010 VERTEBRAL CORPECTOMY CERVICAL EACH ADDITIONAL LEVEL performed by GAVIN BHARDWAJ [place] [facility] [place] REMOVE CATARACT, INSERT LENS PROSTH Right 03/10/2022 right EXTRACAPSULAR CATARACT REMOVAL WITH INTRAOCULAR LENS performed by Liang Marshall MD at OR [facility] REMOVE CATARACT, INSERT LENS PROSTH Left 03/24/2022 left EXTRACAPSULAR CATARACT REMOVAL WITH INTRAOCULAR LENS performed by Liang Marshall MD at OR [facility] REMOVE NECK SPINE DISK, SINGLE 09/05/2008 DISKECTOMY ANTERIOR CERVICAL performed by GAVIN BHARDWAJ at [facility] REMOVE NECK SPINE DISK, SINGLE 05/07/2010 DISKECTOMY ANTERIOR CERVICAL performed by GAVIN BHARDWAJ at [facility] REMOVE VERTEBRAL BODY, NECK, SINGLE 05/07/2010 VERTEBRAL CORPECTOMY ANTERIOR CERVICAL performed by GAVIN BHARDWAJ [place] [facility] [place] REPAIR FINGER/HAND TENDON, EACH & right index finger tendon transfer from toe - [place] [facility] 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 Review of Systems: Constitutional ROS: No change in weight, + weakness, + fatigue and No fevers, sweats, or chills [...] or constipation and No dysphagia Musculoskeletal/Extremities ROS: see HPI Skin/Integumentary ROS: see HPI Neurologic ROS: No headaches and No seizures + DM neuropathy Psychiatric ROS: No depression, No anxiety and No psychosis Sleep: MINERVA OBJECTIVE: PHYSICALEXAM: I reviewed the most recent facilities vitals. General: alert, no distress, chronically ill appearing Head: Normocephalic, No masses, lesions, tenderness or abnormalities Eye Exam: Conjunctiva are pink and non-injected, [...] chest wall tenderness, lungs clear to auscultation Pulses: rweak DP and PT pulses bilaterally Abdomen: abdomen soft, non-tender, normal bowel sounds and no masses or organomegaly Extremities: venous insufficiency changes with edema and venous stasis changes. Erythema with open venous ulcers right upper leg and right foot. Neuro Exam: alert & oriented x 3 with fluent speech, Skin: skin color, texture, turgor are normal, ASSESSMENT: Cellulitis of right leg (Primary) Reviewed [facility] notes at length Completed antibiotics in [facility] Followup with wound specialty in facilty Dressing changes as directed JORGE (acute kidney injury) (HCC) On CKD Repeat BMP next lab draw Continue fluid restriction 1.5 L 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, with fat layer exposed, unspecified part of foot (HCC) Continue to monitor glucoses A1C: 6.0% Continue Ozempic 0.25mg weekly 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 kidney disease (HCC) Continue Solaanz 40mg BID, Toprol XL 25mg daily, KCl 20mEq dailiy Chronic atrial fibrillation (HCC) Continue Lovenox bridge 90mg BID and coumadin managed by anticoagulation clinic Cerebrovascular disease, arteriosclerotic, post-stroke Stable Continue Lovenox bridge and coumadin per anticoagulation clinic Cardiac pacemaker in situ Type 2 diabetes mellitus with peripheral vascular disease (HCC) Continue to monitor glucoses DYSLIPIDEMIA, GOAL LDL BELOW 100 Continue Lipitor 40mg HS MRSA (methicillin resistant Staphylococcus aureus) - Admission studies: CBC and BMP - Folllowup with nephrology as directed Consult wound specialty in SNF - Reviewed and approved medication list. Medications are now as follows: Current Outpatient Medications Medication Sig Dispense Refill Boost Oral Liquid Take 237 mL by [...] every 8 hours as needed forMuscle spasms. ACETAMINOPHEN 500 MG PO TABS 2 tabs [...] BY MOUTH EVERY DAY 100 Tablet 2 No current facility-administered medications for this visit. -Follow facility bowel protocol. -Speech therapy, PT/OT, nutrition services, administrator social welfare for discharge as necessary. - Discussed all this with both pt and staff. - Will continue to follow. [facility] Given: as above Total time spent with patient, 67 minutes with over half time spent reviewing [facility] notes, labs, consults, studies, and planning of care Electronically signed by: Ryanne Ramos PA-C 06/28/2023 documented in this encounter Plan of Treatment Upcoming Encounters Date Type Department Care Team (Late st Contact Info) Description 06/30/2023 8:30 AM EDT Senior Living Visit [address] [place] [address] Primitivo Heck MD [address] [place] [address] [place] [address] 06/30/2023 5:30 PM EDT Anticoagulation Pharmacy Call Center 58-60 [facility] [place] [address] Ccps, [facility] 58 60 [facility] [place] [address] 11/20/2023 2:00 PM EDT Office Visit Nephrology [address] [place] [address] ZemaMarycarmen lindsey PA-C [facility] [address] 02/20/2024 12:30 PM EST Nurse Only Ancillary [address] [place] [address] [place], Nurse Annual Wellness [address] [place] [address] [place] [address] Scheduled Procedures Name Priority Associated Diagnoses Date/Ti [...] Additional history exists CKD PHOS USE SMARTSET 73682 11/17/2023 10/0 05/2022, 09/29/2021, 05/12/2021, Additional history exists Diabetic Foot Exam 11/17/2023 11/16/2022, 0 05/05/2021, 11/22/2017, Additional history exists GFR 12/29/2023 06/28/2023, 02/13, 01/17/2023, Additional history exists Depression Screening 02/17/2024 02/16/2023 CKD HGB USE SMARTSET 19918 06/27/202406/27, 06/28/2023, 01/17/2023, Additional history exists DTaP,Tdap,and [...] this encounter Medical Devices Implanted Type Area Configuration Engineer Device Identifier Shelf Expiration Date Model / Serial / Lot Shaft Fibula 6cm [id number] - [id number] [place] [facility] [place] Human N/A: Spine Cervical MUSCULOSKELETAL TRANSPLANT FND 04/20/2010 [id number] / [id number] 0P / Stent Eso Gw 22x70 03532-636 - [id number] Implanted:Qty: 1 on 01/21/2008 [place] [facility] [place]A: Esophagus ALVEOLUS INC 04/12/2009 68673-776 / / [id number] Depuy Uniplate 32 Implanted:Qty: 1 [place] 09/05/[place] [facility] [place]: Spine Cervical TAMMY & TAMMY DEPUY 1896-03-302 / / Depuy Uniplate Screw 14mm Implanted:Qty: 2 on 09/05/2008 [place] [facility] [place]: Spine Cervical TAMMY & TAMMY DEPUY 1896-07-017 / / Depuy Lordotic Bengal Cage Implanted:Qty: 1 on 05/07/2010 [place] [facility] [place]A: Neck 1773-06-146 / 1773--146 / Plate Zach 3 Level Ti 54mm - [id number] Implanted:Qty: 1 on 05/07/2010 [place] [facility] [place]: Neck JNJ : DEPUY SPINE [id number] / / Screw Zach Const St Ti 14mm - [id number] Implanted:Qty: 4 on 05/07/2010 [place] [facility] [place]: Neck JNJ : DEPUY SPINE [id number] 14 / / Screw 3.5x14 Mntr Fa [id number] - [id number] Implanted:Qty: 8 on 05/07/[place] [facility] [place]: Spine Cervical JNJ : ETHICON CARDIOVATIONS [id number] / / Jarrell [id number] - [id number] Implanted:Qty: 1 on 05/07/2010 [place] [facility] [place]: Spine Cervical JNJ : ETHICON CARDIOVATIONS [id number] / / Screw Inner Mntr [id number] - [id number] Implanted:Qty: 8 on 05/07/2010 [place] [facility] [place]: Spine Cervical JNJ : ETHICON CARDIOVATIONS [id number] / / Envista Intraocular Lens Implanted:Qty: 1 on 03/10/2022 by Liang Marshall MD at [facility] Right: Eye BAUSCH & LOMB 08/13/2023 [id number] / [id number] / [id number] Envista Intraocular Lens Implanted:Qty: 1 on 03/24/2022 by Liang Marshall MD at [facility] Left: Eye BAUSCH & LOMB 07/13/2024 [id number] / [id number] / [id number] documented as of this encounter Visit Diagnoses Diagnosis Cellulitis of right leg- Primary Cellulitis and abscess of leg, except foot [place] (acute kidney injury) (HCC) Acute kidney failure, unspecified 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, with fat layer exposed, unspecified part of foot (HCC) 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 kidney disease (HCC) Chronic atrial fibrillation (HCC) Atrial fibrillation Cerebrovascular disease, arteriosclerotic, post-stroke Cerebral atherosclerosis Cardiac pacemaker in situ Type 2 diabetes mellitus with peripheral vascular disease (HCC) DYSLIPIDEMIA, GOAL LDL BELOW 100 Other and unspecified hyperlipidemia MRSA (methicillin resistant Staphylococcus aureus) Methicillin resistant Staphylococcus aureus in conditions classified elsewhere and of unspecified site documented in this encounter Advance Directives Documents on File Type Date Recorded Patient High Climber Expl anation POLST 01/26/2021 [place] OR DERS [...] the patient have Health Care Power of Medical Transcription Radiology? No Code Status History Code Status Date Activated Date Inactivated Comments No Code 03/10/2022 7:41 AM 03/10/2022 2:02 PM This order reflects the patients wishes and were consensually agreed upon. Question Answer Comments Discussion of Advance Directives occurred with: Patient Does the patient have a Living Will? No Does the patient have Health Care Power of Medical Transcription Radiology? No Full Code 05/07/2010 8:55 AM 05/11/2010 9:01 PM This order reflects the patients wishes and were consensually agreed upon. Question Answer Comments Discussion of Advance Directives occurred with: Patient Does the patient have a Living Will? No Does the patient have Health Care Power of Medical Transcription Radiology? No Full Code 05/07/2010 6:07 AM 05/07/2010 [...] the patient have Health Care Power of Medical Transcription Radiology? No Care Teams Associate Professor Of Music Relationship Specialty Start Date End Date Jocelyne Desai DO [address] [place] [address] [place] [address] PCP - General Internal Medicine 11/09/16 documented as of this encounter
--- OUTSIDE RECORDS SUMMARY | 2023-08-01 09:37 | External Medical Summary | Summary of Care ---
Author Name Unknown Organization [facility] Address [address] [facility] [place] [address] Phone [phone] Care Team Providers Care Concrete Form Setter And Finisher Name Role Phone DesaiElissaJocelyne Briggs DO Primary Care Provider + [phone] Reason for Visit * Reason Comments Dosage Adjustment Via Phone (anticoag Cl inic) Encounter Details Date Type Department Care Team (Latest Contact Info) Description 06/23/2023 6:45 AM EDT Anticoagulation Pharmacy Call Center 58[address] [facility] [place] [address] [facility] 58 60 [place] [address] Chronic atrial fibrillation (HCC)* Allergies No known [...] Good connectivity [facility] for wound care [phone] Televideo if needed. Problem Noted Date Diagnosed [...] podiatry,. Letter in chart from [facility] podiatry they were unable to get [...] ICD-10 update of inactive term PLATT RESEARCH OTHER*[id number] 02/20/2007 ADVANCE DIRECTIVE INFORMATION 01/19/2005 Overview: Yes, [...] 11/17/19 23 LUMBAGO 12/24/2002 05/09/2007 LOC PRIM XCLPABIH-L-[id number] 12/24/200208/13 DEGENERATIVE SKIN DISORD 12/24/2002 VERTEBRAL FX [...] this encounter Progress Notes * Estefania Palacios, [facility] - 06/23/2023 11:19 AM EDT Pt remains admitted to [facility]. Per CM notes, likely d/c to [facility] next week. Estefania Palacios Rp, Pharm.D. Clinical Pharmacist [facility] ([facility]) (formerly Telepharmacy) [phone] 06/23/2023,11:23 AM documented in this encounter Plan of Treatment Upcoming Encounters Date Type Department Care Team (Late st Contact Info) Description 06/30/2023 8:30 AM EDT Long-Term Visit [address] [place] [address] Primitivo Heck MD [address] [place] [address] [place] [address] 11/20/2023 2:00 PM EDT Office Visit Nephrology [address] [place] [address] ZemaMarycarmen lindsey PA-C [address] [place] [address] 02/20/2024 12:30 PM EST Nurse Only Ancillary [address] [place] [address] [place], Nurse Annual [address] [place] [address] Scheduled Procedures Name Priority Associated Diagnoses Date/Ti ia COLONOSCOPY FLEXIBLE PROXIMA L DIAGNOSTIC Recall Screening for colon cancer Health Maintenance Due Date Last Done Comments Cologuard 1997 Sigmoidoscopy 1997 Fecal Occult Blood Test 09/02/2009 09/02/2008, 05/04 Diabetic Eye Exam 12/30/2022 12/30/2021, , 12/28/2021, Additional history exists HbA1c 05/18/2023 11/16/2022, 10/15, 05/13/2022, Additional history exists Albumin/Creatinine Ratio 11/17/2023 023, 05/13/2022, 09/29/2021, Additional history exists CKD PHOS USE SMARTSET 13100 11/17/2023 100 05/2022, 09/29/2021, 05/12/2021, Additional history exists Diabetic Foot Exam 11/17/2023 11/16/2022, 0 05/05/2021, 11/22/2017, Additional history exists GFR 12/29/2023 06/28/2023, 02/13, 01/17/2023, Additional history exists Depression Screening 02/17/2024 02/16/2023 CKD HGB USE SMARTSET 55903 06/27/202406/27, 06/28/2023, 01/17/2023, Additional history exists DTaP,Tdap,and [...] this encounter Medical Devices Implanted Type Area Sales Consultant Insurance Device Identifier Shelf Expiration Date Model / Serial / Lot Shaft Fibula 6cm 800106 - [id number] Implanted:Qty: 1 on 09/05/2008 [place] [facility] [place] Tissue - Human N/A: Spine Cervical MUSCULOSKELETAL TRANSPLANT FND 04/20/2010 [id number] / [id number] 0P / Stent Eso Gw 22x70 93556-271 - [id number] Implanted:Qty: 1 on 01/21/2008 at [place] [facility] [place] N/A: Esophagus ALVEOLUS INC 04/12/2009 67665-676 / / [id number] Depuy Uniplate 32 Implanted:Qty: 1 on 09/05/2008 [...] [place]/A: Neck 1773-06-146 / 1773-146 / Plate Zach 3 Level Ti 54mm - [id number] Implanted:Qty: 1 on 05/07/2010 at [place] [facility] [place] N/A: Neck JNJ : DEPUY SPINE [id number] 54 / / Screw Zach Const St Ti 14mm - [id number] Implanted:Qty: 4 on 05/07/2010 at [place] [facility] [place] N/A: Neck JNJ : DEPUY SPINE [id number] 14 / / Screw 3.5x14 Mntr Fa [id number] - [id number] Implanted:Qty: 8 on 05/07/2010 at [place] [facility] [place] N/A: Spine Cervical JNJ : ETHICON CARDIOVATIONS [id number] / / Jarrell [id number] - [id number] Implanted:Qty: 1 on 05/07/2010 at [place] [facility] [place] N/A: Spine Cervical JNJ : ETHICON CARDIOVATIONS [id number] / / Screw Inner Mntr [id number] - [id number] Implanted:Qty: 8 on 05/07/2010 at [place] [facility] [place] N/A: Spine Cervical JNJ : ETHICON CARDIOVATIONS [id number] / / Envista Intraocular Lens Implanted:Qty: 1 on 03/10/2022 by Liang Marshall MD at OR [facility] Right: Eye BAUSCH & LOMB 08/13/2023 [id number] / [id number] / [id number] Envista Intraocular Lens Implanted:Qty: 1 on 03/24/2022 by Liang Marshall MD at OR [facility] Left: Eye BAUSCH & LOMB 07/13/2024 [id number] / [id number] / [id number] documented as of this encounter Visit Diagnoses Diagnosis Chronic atrial fibrillation (HCC)- Primary Atrial fibrillation documented in this encounter Advance Directives Documents on File Type Date Recorded 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 No Code Status History Code Status Date Activated Date Inactivated Comments No Code 03/10/2022 7:41 AM 03/10/2022 2:02 PM This order reflects the patients wishes and were consensually agreed upon. Question Answer Comments Discussion of Advance Directives occurred with: Patient Does the patient have a Living Will? No Does the patient have Health Care Power of Report Clerk? No Full Code 05/07/2010 8:55 AM 05/11/2010 9:01 PM This order reflects the patients wishes and were consensually agreed upon. Question Answer Comments Discussion of Advance Directives occurred with: Patient Does the patient have a Living Will? No Does the patient have Health Care Power of Report Clerk? No Full Code 05/07/2010 6:07 AM [...] the patient have Health Care Power of Report Clerk? No Care Teams Concrete Form Setter And Finisher Relationship Specialty Start Date End Date Jocelyne Desai DO [address] [place] [address] [place] [address] PCP - General Internal Medicine 11/09/16 documented as of this encounter
--- OUTSIDE RECORDS SUMMARY | 2023-08-01 09:38 | External Medical Summary | Summary of Care ---
Author Name Unknown Organization [facility] Address [address] [facility] [address] Phone [phone] Care Team Providers Care Analysis Director Name Role Phone DesaiElissaJocelynejohn Cunninghambritany ASHTON Primary Care Provider + [phone] Encounter Details Date Type Department Care Team (Late st Contact Info) Description 06/27/2023 Result Scan Unspecified Department Acacia Carpenter DO [address] [facility] [place] [address] <No scans attached> Allergies No known active allergiesdocumented as of this encounter (statuses as of 06/27/2023) Medications Medication Sig Dispensed Refills Start Date [...] as of this encounter (statuses as of 06/27/2023) Active Problems Patient Care Coordination No te Formatting of this note migh t be different from the original. Good connectivity [facility] for wound care [phone] Televideo if needed. Problem Noted Date Diagnosed Date History of ND (myocardial infarction) 11/09/2021 Trigger [...] with podiatry,. Letter in chart from [facility] podiatry they were unable to get [...] 11/27/2018 H/O gastric bypass 11/27/2018 Overview: RYGB halfway current use of 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 1 Status [...] ICD-10 update of inactive term PLATT RESEARCH OTHER*[id number] 02/20/2007 ADVANCE DIRECTIVE INFORMATION 01/19/2005 Overview: Yes, Patient instructed to provide copy of advance directive for provider to review and to be scanned into Electronic Medical Record No, Advance Directive brochure given to patient at prior appointment. SPINAL STENOSIS-LUMBAR 09/23/2002 Vitamin D deficiency Cervical spinal stenosis documented as of this encounter (statuses as of 06/27/2023) Resolved Problems Problem Noted Date Diagnosed Date Resolved Date Depression, unspecified 11/09/2021/ Depression, unspecified 11/09/202105/2022 Cellulitis of right leg 07/13/202105/2022 Last Assessment & Plan: Suspect this could be early/localized. Will treat with 7 days antibiotic. If pt cannot be reassess by Dr. Braxton office early next week will need [facility] provider recheck Multiple and open wound [...] 11/17/19 23 LUMBAGO 12/24/2002 05/09/2007 LOC PRIM AUAUUVBA-D-RGD 12/24/200208/13 DEGENERATIVE SKIN DISORD 12/24/2002 VERTEBRAL FX [...] as of this encounter (statuses as of 06/27/2023) Immunizations Name Administration Dates Next Due COVID-19 mRNA, LNP-s, No Pre serve, 2-Dose Series (Moderna) 03/19/2020 COVID-19 mRNA, LNP-s, No Pre serve, 2-Dose Series (Pfizer) 02/16/2021,04/09/2020,03/19/2020 COVID-19, MRNA-LNP, 23-24, P F, 30 MCG/0.3 mL, 12 YRS AND ABOVE, IM (Ernie's-Comirnaty) 11/16/2022 Covid-19, Mrna, Lnp-s, Pf, B ivalent, [...] Team (Late st Contact Info) Description 06/28/2023 6:45 AM EDT Anticoagulation Pharmacy Call Center WB [address] [place] [address] [facility] 58 60 [facility] [place] [address] 11/20/2023 2:00 PM EDT Office Visit Nephrology [address] [place] [address] Marycarmen Kowalski PA-C [address] [place] [address] 02/20/2024 12:30 PM EST Nurse Only Ancillary [address] [place] [address] [place], Nurse Annual [address] [place] [address] Scheduled Procedures Name Priority Associated Diagnoses Date/Ti [...] Additional history exists CKD PHOS USE SMARTSET 24948 11/17/2023 100 05/2022, 09/29/2021, 05/12/2021, Additional history exists Diabetic Foot Exam 11/17/2023 11/16/2022, 0 05/05/2021, 11/22/2017, Additional history exists CKD HGB USE SMARTSET 45679 01/18/202401/17, 01/17/2023, 11/16/2022, Additional history exists Depression [...] this encounter Medical Devices Implanted Type Area Lead Application Architect Device Identifier Shelf Expiration Date Model / Serial / Lot Shaft Fibula 6cm [id number] - [id number] Implanted:Qty: 1 on 09/05/2008 [place] [facility] [place] - Human N/A: Spine Cervical MUSCULOSKELETAL TRANSPLANT FND 04/20/2010 401562 / [id number] 0P / Stent Eso Gw 22x70 59954-576 - [id number] Implanted:Qty: 1 on 01/21/2008 [place] [facility] [place] N/A: Esophagus ALVEOLUS INC 04/12/2009 94341-818 / / [id number] Depuy Uniplate 32 Implanted:Qty: 1 on 09/05/2008 at [place] [facility] [place]/A: Spine Cervical TAMMY & TAMMY DEPUY 1897--302 / / Depuy Uniplate Screw 14mm Implanted:Qty: 2 on 09/05/2008 at [place] [facility] [place]/A: Spine Cervical TAMMY & TAMMY DEPUY 1897--017 / / Depuy Lordotic Bengal Cage Implanted:Qty: 1 on 05/07/2010 at [place] [facility] [place] N/A: Neck 1773-06-146 / 1773-06-146 / Plate Zach 3 Level Ti 54mm - [id number] Implanted:Qty: 1 on 05/07/2010 at [place] [facility] [place] N/A: Neck JNJ : DEPUY SPINE [id number] 54 / / Screw Zach Const St Ti 14mm - [id number] Implanted:Qty: 4 on 05/07/2010 at [place] [facility] [place] N/A: Neck JNJ : DEPUY SPINE [id number] 14 / / Screw 3.5x14 Mntr Fa [id number] - [id number] Implanted:Qty: 8 on 05/07/2010 at [place] [facility] [place] N/A: Spine Cervical JNJ : ETHICON CARDIOVATIONS [id number] / / Jarrell [id number] - [id number] Implanted:Qty: 1 on 05/07/2010 at [place] [facility] [place]/A: Spine Cervical JNJ : ETHICON CARDIOVATIONS [id number] / / Screw Inner Mntr [id number] - [id number] Implanted:Qty: 8 on 05/07/2010 [place] [facility] [place]/A: Spine Cervical JNJ : ETHICON CARDIOVATIONS [id number] / / Envista Intraocular Lens Implanted:Qty: 1 on 03/10/2022 by Liang Marshall MD at OR [facility] Right: Eye BAUSCH & LOMB 08/13/2023 [id number] / [id number] / [id number] Envista Intraocular Lens Implanted:Qty: 1 on 03/24/2022 by Liang Marshall MD at OR [facility] Left: Eye BAUSCH & LOMB 07/13/2024 [id number] / [id number] / [id number] documented as of this encounter Procedures Procedure Name Priority Date/Time Associated Diagnosis Comments CARDIOLOGY SCANNED RESULT 06/27/2023 documented in this encounter Results * CARDIOLOGY SCANNED RESULT (06/27/2023) 06/27/2023 Acacia Carpenter DO OTHER documented in this encounter Advance Directives Documents on File Type Date Recorded Patient Environmental Research Project Manager Expl anation POLST 01/26/2021 [place] DERS [...] the patient have Health Care Power of Barrel Rifler Broach? No Code Status History Code Status Date Activated Date Inactivated Comments No Code 03/10/2022 7:41 AM 03/10/2022 2:02 PM This order reflects the patients wishes and were consensually agreed upon. Question Answer Comments Discussion of Advance Directives occurred with: Patient Does the patient have a Living Will? No Does the patient have Health Care Power of Barrel Rifler Broach? No Full Code 05/07/2010 8:55 AM 05/11/2010 9:01 PM This order reflects the patients wishes and were consensually agreed upon. Question Answer Comments Discussion of Advance Directives occurred with: Patient Does the patient have a Living Will? No Does the patient have Health Care Power of Barrel Rifler Broach? No Full Code 05/07/2010 6:07 AM 05/07/2010 [...] the patient have Health Care Power of Barrel Rifler Broach? No Care Teams Analysis Director Relationship Specialty Start Date End Date Jocelyne Desai DO [address] [place] [address] [place] [address] PCP - General Internal Medicine 11/09/16 documented as of this encounter
--- OUTSIDE RECORDS SUMMARY | 2023-08-01 09:38 | External Medical Summary | Summary of Care ---
Author Name Unknown Organization [facility] Address [address] [facility] [place] [address] Phone [phone] Care Team Providers Care Filler Block Inserter Remover Name Role Phone Jocelyne Desai DO Primary Care Provider [phone] Encounter Details Date Type Department Care Team (Late st Contact Info) Description 06/15/2023 Result Scan Unspecified Department <No scans attached> [...] connectivity [facility] for wound care [phone] Televideo if needed. Problem Noted Date Diagnosed [...] podiatry,. Letter in chart from [facility] podiatry they were unable to get in [...] ICD-10 update of inactive term PLATT RESEARCH OTHER*[id number] 02/20/2007 ADVANCE DIRECTIVE INFORMATION 01/19/2005 Overview: Yes, [...] [place] office early next week will need [facility] provider recheck Multiple and open [...] 11/17/19 23 LUMBAGO 12/24/2002 05/09/2007 LOC PRIM [id number] 12/24/200208/13 DEGENERATIVE SKIN DISORD 12/24/2002 VERTEBRAL FX [...] MCG/0.3 mL, 12 YRS AND ABOVE, [facility] 11/16/2022 Covid-19, Mrna, Lnp-s, Pf, B [...] Call Center WB 58-60 Public [place] [address] [facility] 58 60 [facility] [place] [address] 11/20/2023 2:00 PM EDT Office Visit Nephrology [place] [place] [id number] Marycarmen Kowalski PA-C [address] [place], [place] [address] 02/20/2024 12:30 PM EST Nurse Only Ancillary Reyna Gong[address] [place] [address] [place], Nurse [address] [place] [address] Scheduled Procedures Name Priority Associated Diagnoses Date/Ti [...] Additional history exists CKD PHOS USE SMARTSET 80739 11/17/2023 100 05/2022, 09/29/2021, 05/12/2021, Additional history exists Diabetic Foot Exam 11/17/2023 11/16/2022, 0 05/05/2021, 11/22/2017, Additional history exists CKD HGB USE SMARTSET 06060 01/18/202401/17, 01/17/2023, 11/16/2022, Additional history exists Depression [...] encounter Medical Devices Implanted Type Area Oil Producer Device Identifier Shelf Expiration Date Model / Serial / Lot Shaft Fibula 6cm [id number] - [id number] Implanted:Qty: 1 on 09/05/2008 at OR [facility] Tissue - Human N/A: Spine Cervical MUSCULOSKELETAL TRANSPLANT FND 04/20/2010 [id number] / [id number] 0P / Stent Eso Gw 22x70 [id number] - [id number] Implanted:Qty: 1 on 01/21/2008 at OR [facility] N/A: Esophagus AL[employer]US INC 04/12/2009 83612-643 / / [id number] Depuy Uniplate 32 Implanted:Qty: 1 on 09/05/2008 at [facility] N/A: Spine Cervical TAMMY & TAMMY DEPUY 1897-02-302 / / Depuy Uniplate Screw 14mm Implanted:Qty: 2 on 09/05/2008 at [facility] N/A: Spine Cervical TAMMY & TAMMY DEPUY 1897-06-017 / / Depuy Lordotic Bengal Cage Implanted:Qty: 1 on 05/07/2010 at OR [facility] N/A: Neck 1773-06-146 / 1773-06-146 / Plate Zach 3 Level Ti 54mm - [id number] Implanted:Qty: 1 on 05/07/2010 at [facility] N/A: Neck JNJ : DEPUY SPINE [id number] / / Screw Zach Const St Ti 14mm - [id number] Implanted:Qty: 4 on 05/07/2010 at OR [facility] N/A: Neck JNJ : DEPUY SPINE [id number] / / Screw 3.5x14 Mntr Fa [id number] - [id number] Implanted:Qty: 8 on 05/07/2010 at OR [facility] N/A: Spine Cervical JNJ : ETHICON CARDIOVATIONS [id number] / / Jarrell [id number] - [id number] Implanted:Qty: 1 on 05/07/2010 at OR [facility] N/A: Spine Cervical JNJ : ETHICON CARDIOVATIONS [id number] / / Screw Inner Mntr [id number] - [id number] Implanted:Qty: 8 on 05/07/2010 at OR [facility] N/A: Spine Cervical JNJ : ETHICON CARDIOVATIONS [id number] / / Envista Intraocular Lens Implanted:Qty: 1 on 03/10/2022 by Liang Marshall MD at OR [facility] Right: Eye BAUSCH & LOMB 08/13/2023 [id number] / [id number] / [id number] Envista Intraocular Lens Implanted:Qty: 1 on 03/24/2022 by Liang Marshall MD at OR [facility] Left: Eye BAUSCH & LOMB 07/13/2024 [id number] / [id number] / [id number] documented as of this encounter Procedures Procedure Name Priority Date/Time Associated Diagnosis Comments RADIOLOGY SCANNED RESULT 06/15/2023 documented in this encounter Results * RADIOLOGY SCANNED RESULT (06/15/2023) 06/15/2023 No Physician Data Unknown DIAGNOSTIC RAD IOLOGY SERVICES documented in this encounter Advance Directives Documents on File Type Date Recorded Patient Community Health Director Expl anation POLST 01/26/2021 [place] DERS [...] the patient have Health Care Power of Straw Hat Plunger Operator? No Code Status History Code Status Date Activated Date Inactivated Comments No Code 03/10/2022 7:41 AM 03/10/2022 2:02 PM This order reflects the patients wishes and were consensually agreed upon. Question Answer Comments Discussion of Advance Directives occurred with: Patient Does the patient have a Living Will? No Does the patient have Health Care Power of Straw Hat Plunger Operator? No Full Code 05/07/2010 8:55 AM 05/11/2010 9:01 PM This order reflects the patients wishes and were consensually agreed upon. Question Answer Comments Discussion of Advance Directives occurred with: Patient Does the patient have a Living Will? No Does the patient have Health Care Power of Straw Hat Plunger Operator? No Full Code 05/07/2010 6:07 AM [...] the patient have Health Care Power of Straw Hat Plunger Operator? No Care Teams Filler Block Inserter Remover Relationship Specialty Start Date End Date Jocelyne Desai DO [address] [place] [address] [place] [address] PCP - General Internal Medicine 11/09/16 documented as of this encounter
--- OUTSIDE RECORDS SUMMARY | 2023-08-01 09:38 | External Medical Summary | Summary of Care ---
Author Name Unknown Organization [facility] Address [address] [place] [address] Phone [phone] Care Team Providers Care Grinder Outside Diameter Name Role Phone Jocelyne Desai Primary Care Provider + [phone] Reason for Referral * Evaluate & Treat - Unlimited Visits (Within 3 days (urgent)) - Authorized Specialty Diagnoses / Procedures Referred By Mingo de paz Referred To Contact ANTI-COAG CLINIC / Pharmacy Diagnoses Chronic atrial fibrillation (HCC) Ryanne Ramos PA-C [address] [place] [address] Referral ID Status Reason Start Date Expiration Date Visits Requested Visits Authorized [id number] Authorized Specialty Services Required 06/27/2023 12/24/2023 99 99 Question Answer Referral Priority Within 3 days (urgent) Where should this appointment be scheduled? [facility] Comments Anticoagulation referral for management of: Warfarin Indication and INR goal for Warfarin Management: AF Relevant History: N/A Enoxaparin bridging required? PT CURRENTLY ON BRIDGING LOVENOX AND COUMADIN PER [facility] Minimum frequency patient should be seen in person for medication management: as appropriate per clinical condition and patient status By my signature, I understand that my patient Lg Cooley will have his medication therapy managed by the [facility] Medication Therapy [facility] ([facility]) per established policies, procedures, and protocols. I also certify that this referral may serve as an initiation of service for the management of drug therapy in the above noted patient. [facility] providers will be responsible for scheduling patient visits, obtaining appropriate laboratory studies, and adjusting medication management therapy per patient's need, in addition to those roles spelled out in the clinic policy, procedures, and drug management protocols. I understand that the service provided by the [facility] is voluntary and have informed patient that they can refuse the service at their discretion. I am aware that the [facility] Clinic will provide me with a copy of the patient encounter via [facility]. I authorize the [facility] Clinic to carry out these activities on my behalf. I consider this program to be a necessary part of the patient's medical care. Ryanne Ramos PA-C Encounter Details Date Type Department Care Team (Late st Contact Info) Description 06/27/2023 Orders Only [facility] [place] [address] [place] [address] Ryanne Ramos PA-C [address] [place] [address] Chronic atrial fibrillation (HCC)* Allergies No known [...] Good connectivity [facility] for wound care [phone] Televideo if needed. Problem Noted Date Diagnosed [...] podiatry,. Letter in chart from [facility] podiatry they were unable to get in [...] ICD-10 update of inactive term PLATT RESEARCH OTHER*[id number] 02/20/2007 ADVANCE DIRECTIVE INFORMATION 01/19/2005 Overview: Yes, [...] [place] office early next week will need [facility] provider recheck Multiple and open [...] 11/17/19 23 LUMBAGO 12/24/2002 05/09/2007 LOC PRIM [id number] 12/24/200208/13 DEGENERATIVE SKIN DISORD 12/24/2002 VERTEBRAL FX [...] EDT Anticoagulation Pharmacy Call Center WB [address] [facility] [place] [address] [facility] 58 60 [facility] [place] [address] 11/20/2023 2:00 PM EDT Office Visit Nephrology [address] [place] [address] Marycarmen Kowalski PA-C [address] [place] [address] 02/20/2024 12:30 PM EST Nurse Only Ancillary [place] [place] [address] [place], Nurse [address] [place] [address] Scheduled Procedures Name Priority Associated Diagnoses Date/Ti me COLONOSCOPY FLEXIBLE PROXIMA L DIAGNOSTIC Recall Screening for colon cancer Scheduled Referrals Name Type Priority Associated Diagnoses Orde r Schedule ANTI-COAGULATION REFERRAL OP Referral Within 3 days (urgent) Chronic atrial fibrillation (HCC) Ordered: 06/27/2023 Health Maintenance Due Date Last Done Comments Cologuard 1997 Sigmoidoscopy 1997 Fecal Occult Blood Test 09/02/2009 09/02/2008, 05/04 Diabetic Eye Exam 12/30/2022 12/30/2021, , 12/28/2021, Additional history exists HbA1c 05/18/2023 11/16/2022, 10/15, 05/13/2022, Additional history exists GFR 08/24/2023 02/23/2023, 1206/2022, 11/16/2022, Additional history exists Albumin/Creatinine Ratio 11/17/2023 023, 05/13/2022, 09/29/2021, Additional history exists CKD PHOS USE SMARTSET 70775 11/17/2023 10/0 05/2022, 09/29/2021, 05/12/2021, Additional history exists Diabetic Foot Exam 11/17/2023 11/16/2022, 0 05/05/2021, 11/22/2017, Additional history exists CKD HGB USE SMARTSET 45842 01/18/202401/17, 01/17/2023, 11/16/2022, Additional history exists Depression [...] this encounter Medical Devices Implanted Type Area Sheet Hanger Device Identifier Shelf Expiration Date Model / Serial / Lot Shaft Fibula 6cm [id number] - [id number] Implanted:Qty: 1 on 09/05/2008 at OR [facility] Tissue - Human N/A: Spine Cervical MUSCULOSKELETAL TRANSPLANT FND 04/20/2010 035051 / [id number] 0P / Stent Eso Gw 22x70 [id number] - [id number] Implanted:Qty: 1 on 01/21/2008 at OR [facility] N/A: Esophagus ALVEOLUS INC 04/12/2009 38394-623 / / [id number] Depuy Uniplate 32 Implanted:Qty: 1 on 09/05/2008 at OR [facility] N/A: Spine Cervical TAMMY & TAMMY DEPUY 18908-14-302 / / Depuy Uniplate Screw 14mm Implanted:Qty: 2 on 09/05/2008 at OR [facility] N/A: Spine Cervical TAMMY & TAMMY DEPUY 7-017 / / Depuy Lordotic Bengal Cage Implanted:Qty: 1 on 05/07/2010 at OR [facility] N/A: Neck 1773-06-146 / 1773-06-146 / Plate Zach 3 Level Ti 54mm - [id number] Implanted:Qty: 1 on 05/07/2010 at OR [facility] N/A: Neck JNJ : DEPUY SPINE [id number] 54 / / Screw Zach Const St Ti 14mm - [id number] Implanted:Qty: 4 on 05/07/2010 at OR [facility] N/A: Neck JNJ : DEPUY SPINE [id number] 14 / / Screw 3.5x14 Mntr Fa [id number] - [id number] Implanted:Qty: 8 on 05/07/2010 at OR [facility] N/A: Spine Cervical JNJ : ETHICON CARDIOVATIONS [id number] / / Jarrell [id number] - [id number] Implanted:Qty: 1 on 05/07/2010 at OR [facility] N/A: Spine Cervical JNJ : ETHICON CARDIOVATIONS [id number] / / Screw Inner Mntr [id number] - [id number] Implanted:Qty: 8 on 05/07/2010 at OR [facility] N/A: Spine Cervical JNJ : ETHICON CARDIOVATIONS [id number] / / Envista Intraocular Lens Implanted:Qty: 1 on 03/10/2022 by Liang Marshall MD at OR [facility] Right: Eye BAUSCH & LOMB 08/13/2023 [id number] / [id number] / [id number] Envista Intraocular Lens Implanted:Qty: 1 on 03/24/2022 by Liang Marshall MD at OR [facility] Left: Eye BAUSCH & LOMB 07/13/2024 [id number] / [id number] / [id number] documented as of this encounter Visit Diagnoses Diagnosis Chronic atrial fibrillation (HCC)- Primary Atrial fibrillation documented in this encounter Advance Directives Documents on File Type Date Recorded Patient Multiplex Operator Expl anation POLST 01/26/2021 [place] DERS [...] patient have Health Care Power of Sales Agent Fire Insurance? No Code Status History Code Status Date Activated Date Inactivated Comments No Code 03/10/2022 7:41 AM 03/10/2022 2:02 PM This order reflects the patients wishes and were consensually agreed upon. Question Answer Comments Discussion of Advance Directives occurred with: Patient Does the patient have a Living Will? No Does the patient have Health Care Power of Sales Agent Fire Insurance? No Full Code 05/07/2010 8:55 AM 05/11/2010 9:01 PM This order reflects the patients wishes and were consensually agreed upon. Question Answer Comments Discussion of Advance Directives occurred with: Patient Does the patient have a Living Will? No Does the patient have Health Care Power of Sales Agent Fire Insurance? No Full Code 05/07/2010 6:07 AM 05/07/2010 [...] patient have Health Care Power of Sales Agent Fire Insurance? No Care Teams Grinder Outside Diameter Relationship Specialty Start Date End Date Jocelyne Desai DO [address] [place] [address] [place] [address] PCP - General Internal Medicine 11/09/16 documented as of this encounter
--- OUTSIDE RECORDS SUMMARY | 2023-08-01 09:38 | External Medical Summary | Summary of Care ---
Author Name Unknown Organization [facility] Address [address] [facility] [place] [address] Phone [phone] Care Team Providers Care Defensive Fire Control Systems Operator Name Role Phone DesaiElissaJocelynejohn Cunninghame DO Primary Care Provider + [phone] Reason for Visit * Reason Comments Dosage Adjustment Via Phone (anticoag Cl inic) Encounter Details Date Type Department Care Team (Latest Contact Info) Description 06/27/2023 6:45 AM EDT Anticoagulation Pharmacy Call Center 58-[address] Public [facility] [place] [address] [facility] 58 60 [place] [address] Chronic atrial fibrillation (HCC)* Allergies No known [...] be different from the original. Good connectivity [facility] for wound care [phone] Televideo if needed. 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 He has significant history DM and PVD and recommended he still follow up with podiatry,. Letter in chart from [facility] podiatry they were unable to get [...] ICD-10 update of inactive term PLATT RESEARCH OTHER*[id number] 02/20/2007 ADVANCE DIRECTIVE INFORMATION 01/19/2005 Overview: Yes, [...] [place] office early next week will need [facility] provider recheck Multiple and open wound [...] 11/17/19 23 LUMBAGO 12/24/2002 05/09/2007 LOC PRIM [id number] 12/24/200208/13 DEGENERATIVE SKIN DISORD 12/24/2002 VERTEBRAL FX [...] Progress Notes * Estefania Palacios, [facility] - 06/27/2023 2:32 PM EDT Pt remains admitted to [facility]. Plan is Radha Grimaldo at discharge. [facility] will follow up at d/c Estefania Palacios Rph, Pharm.D. Clinical Pharmacist Centralized Clinical Pharmacy Services (CCPS) (formerly Telepharmacy) [phone] 06/27/2023,2:34 PM documented in this encounter Plan of Treatment Upcoming Encounters Date Type Department Care Team (Late st Contact Info) Description 06/28/2023 6:45 AM EDT Anticoagulation Pharmacy Call Center 58[address] [facility] [place] [address] [facility] 58 60 [facility] [place] [address] 11/20/2023 2:00 PM EDT Office Visit Nephrology [address] [place] [address] ZemaitisMarycarmen PA-C [address] [place] [address] 02/20/2024 12:30 PM EST Nurse Only Ancillary [address] [place] [address] [place], Nurse [address] [place] [address] Scheduled Procedures Name Priority Associated Diagnoses Date/Ti [...] Additional history exists CKD PHOS USE SMARTSET 62711 11/17/2023 10/0 05/2022, 09/29/2021, 05/12/2021, Additional history exists Diabetic Foot Exam 11/17/2023 11/16/2022, 0 05/05/2021, 11/22/2017, Additional history exists CKD HGB USE SMARTSET 01311 01/18/202401/17, 01/17/2023, 11/16/2022, Additional history exists Depression [...] this encounter Medical Devices Implanted Type Area Licensed Direct Entry Midwife Device Identifier Shelf Expiration Date Model / Serial / Lot Shaft Fibula 6cm [id number] - [id number] Implanted:Qty: 1 on 09/05/2008 at [place] [facility] Tissue - Human N/A: Spine Cervical MUSCULOSKELETAL TRANSPLANT FND 04/20/2010 [id number] / [id number] 0P / Stent Eso Gw 22x70 92817-015 - [id number] Implanted:Qty: 1 on 01/21/2008 at [place] [facility] N/A: Esophagus ALVEOLUS INC 04/12/2009 64236-456 / / [id number] Depuy Uniplate 32 Implanted:Qty: 1 on 09/05/2008 [...] [facility] [place] N/A: Neck 1773-06-146 / [id number] / Plate Zach 3 Level Ti 54mm - [id number] Implanted:Qty: 1 on 05/07/2010 at [place] [facility] N/A: Neck JNJ : DEPUY SPINE [id number] 54 / / Screw Zach Const St Ti 14mm - [id number] Implanted:Qty: 4 on 05/07/2010 at [place] [facility] N/A: Neck JNJ : DEPUY SPINE [id number] 14 / / Screw 3.5x14 Mntr Fa [id number] - [id number] Implanted:Qty: 8 on 05/07/2010 at [place] [facility] N/A: Spine Cervical JNJ : ETHICON CARDIOVATIONS [id number] / / Jarrell [id number] - [id number] Implanted:Qty: 1 on 05/07/2010 at [place] [facility] N/A: Spine Cervical JNJ : ETHICON CARDIOVATIONS [id number] / / Screw Inner Mntr [id number] - [id number] Implanted:Qty: 8 on 05/07/2010 at [place] [facility] N/A: Spine Cervical JNJ : ETHICON CARDIOVATIONS [id number] / / Envista Intraocular Lens Implanted:Qty: 1 on 03/10/2022 by Liang Marshall MD at OR [facility] Right: Eye BAUSCH & LOMB 08/13/2023 [id number] / [id number] / [id number] Envista Intraocular Lens Implanted:Qty: 1 on 03/24/2022 by Liang Marshall MD at OR [facility] Left: Eye BAUSCH & LOMB 07/13/2024 [id number] / [id number] / [id number] documented as of this encounter Visit Diagnoses Diagnosis Chronic atrial fibrillation (HCC)- Primary Atrial fibrillation documented in this encounter Advance Directives Documents on File Type Date Recorded Patient Manager Contracting Torres ARREOLA 01/26/2021 [place] DERS FOR [...] the patient have Health Care Power of Envelope Patternmaker? No Code Status History Code Status Date Activated Date Inactivated Comments No Code 03/10/2022 7:41 AM 03/10/2022 2:02 PM This order reflects the patients wishes and were consensually agreed upon. Question Answer Comments Discussion of Advance Directives occurred with: Patient Does the patient have a Living Will? No Does the patient have Health Care Power of Envelope Patternmaker? No Full Code 05/07/2010 8:55 AM 05/11/2010 9:01 PM This order reflects the patients wishes and were consensually agreed upon. Question Answer Comments Discussion of Advance Directives occurred with: Patient Does the patient have a Living Will? No Does the patient have Health Care Power of Envelope Patternmaker? No Full Code 05/07/2010 6:07 AM 05/07/2010 [...] the patient have Health Care Power of Envelope Patternmaker? No Care Teams Defensive Fire Control Systems Operator Relationship Specialty Start Date End Date Joceylne Desai DO [address] [place] [address] [place] [address] PCP - General Internal Medicine 11/09/16 documented as of this encounter
--- OUTSIDE RECORDS SUMMARY | 2023-08-01 09:39 | External Medical Summary | Summary of Care ---
Author Name Unknown Organization [facility] Address [address] [facility] [place] [address] Phone [phone] Care Team Providers Care Technical Expert Name Role Phone DesaiElissaJocelyne Briggs DO Primary Care Provider + [phone] Reason for Visit * Reason Comments Dosage Adjustment Via Phone (anticoag Cl inic) Encounter Details Date Type Department Care Team (Latest Contact Info) Description 06/15/2023 6:45 AM EDT Anticoagulation Pharmacy Call Center [phone] [facility] [place] [address] [facility] 58 60 [place] [address] Chronic atrial fibrillation (HCC)* Allergies No known active allergiesdocumented as of this encounter (statuses as of 06/15/2023) Medications Medication Sig Dispensed Refills Start Date [...] as of this encounter (statuses as of 06/15/2023) Active Problems Patient Care Coordination No te Formatting of this note migh t be different from the original. Good connectivity [facility] for wound care [phone] Televideo if needed. 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 He has significant history DM and PVD and recommended he still follow up with podiatry,. Letter in chart from [facility] podiatry they were unable to get [...] 11/27/2018 H/O gastric bypass 11/27/2018 Overview: RYGB technician terminal and repeater current use of 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 1 Status [...] ICD-10 update of inactive term PLATT RESEARCH OTHER*[id number] 02/20/2007 ADVANCE DIRECTIVE INFORMATION 01/19/2005 Overview: Yes, Patient instructed to provide copy of advance directive for provider to review and to be scanned into Electronic Medical Record No, Advance Directive brochure given to patient at prior appointment. SPINAL STENOSIS-LUMBAR 09/23/2002 Vitamin D deficiency Cervical spinal stenosis documented as of this encounter (statuses as of 06/15/2023) Resolved Problems Problem Noted Date Diagnosed Date Resolved Date Depression, unspecified 11/09/2021 03/2 Depression, unspecified 11/09/202105/2022 Cellulitis of right leg 07/13/202105/2022 Last Assessment & Plan: Suspect this could be early/localized. Will treat with 7 days antibiotic. If pt cannot be reassess by Dr. Braxton office early next week will need [facility] provider recheck Multiple and open wound of [...] 11/17/19 23 LUMBAGO 12/24/2002 05/09/2007 LOC PRIM [id number] 12/24/200208/13 DEGENERATIVE SKIN DISORD 12/24/2002 VERTEBRAL FX [...] as of this encounter (statuses as of 06/15/2023) Immunizations Name Administration Dates Next Due COVID-19 [...] this encounter Progress Notes * Estefania Palacios, [facility] - 06/15/2023 3:32 PM EDT Pt currently admitted to [facility]. ACC will follow up at discharge. Estefania Palacios Rph, Pharm.D. Clinical Pharmacist Centralized Clinical Pharmacy Services (CCPS) (formerly Telepharmacy) [phone] 06/15/2023,3:32 PM documented in this encounter Plan of Treatment Upcoming Encounters Date Type Department Care Team (Late st Contact Info) Description 06/21/2023 6:30 AM EDT Anticoagulation Pharmacy Call Center 58-60 [facility] [place] [address] [facility], [facility] 58 60 [facility] [place] [address] 11/20/2023 2:00 PM EDT Office Visit Nephrology [address] [place] [address] Zemaitis, Marycarmen Dill PA-C [address] [place] [address] 02/20/2024 12:30 PM EST Nurse Only Ancillary [address] [place] [address] [place], Nurse [address] [place] [address] Scheduled Procedures Name Priority Associated Diagnoses Date/Ti [...] Additional history exists CKD PHOS USE SMARTSET 82495 11/17/2023 10/0 05/2022, 09/29/2021, 05/12/2021, Additional history exists Diabetic Foot Exam 11/17/2023 11/16/2022, 0 05/05/2021, 11/22/2017, Additional history exists CKD HGB USE SMARTSET 73906 01/18/202401/17, 01/17/2023, 11/16/2022, Additional history exists Depression [...] this encounter Medical Devices Implanted Type Area Cube Machine Tender Device Identifier Shelf Expiration Date Model / Serial / Lot Shaft Fibula 6cm [id number] - [id number] [place]ed:Q[place] 1 [place] [facility] [place] Human N/A: Spine Cervical MUSCULOSKELETAL TRANSPLANT FND 04/20/2010 [id number] / [id number] 0P / Stent Eso Gw 22x70 [id number] - [id number] Implanted:Qty: 1 on 01/21/2008 [place] [facility] [place]A: Esophagus ALVEOLUS INC 04/12/2009 23266-770 / / [id number] Depuy Uniplate 32 Implanted:Qty: 1 [place] 09[place]05/2008 [place] Neck 1773-06-146 / [id number] / Plate Zach 3 Level Ti 54mm - [id number] Implanted:Qty: 1 on 05/07/2010 [place] [facility] [place]: Neck JNJ : DEPUY SPINE [id number] 54 / / Screw Zach Const St Ti 14mm - [id number] Implanted:Qty: 4 on 05/07/2010 [place] [facility] [place]A: Neck JNJ : DEPUY SPINE [id number] 14 / / Screw 3.5x14 Mntr Fa [id number] - [id number] Implanted:Qty: 8 on 05/07/2010 [place] [facility] [place]A: Spine Cervical JNJ : ETHICON CARDIOVATIONS [id number] / / Jarrell [id number] - [id number] Implanted:Qty: 1 on 05/07/2010 [place] [facility] [place]: Spine Cervical JNJ : ETHICON CARDIOVATIONS [id number] / / Screw Inner Mntr [id number] - [id number] Implanted:Qty: 8 on 05/07/2010 [place] [facility] [place]A: Spine Cervical JNJ : ETHICON CARDIOVATIONS [id number] / / Envista Intraocular Lens Implanted:Qty: 1 on 03/10/2022 by Liang Marshall MD at OR [facility] Right: Eye BAUSCH & LOMB 08/13/2023 [id number] / [id number] / [id number] Envista Intraocular Lens Implanted:Qty: 1 on 03/24/2022 by Liang Marshall MD at OR [facility] Left: Eye BAUSCH & LOMB 07/13/2024 [id number] / [id number] / [id number] documented as of this encounter Visit Diagnoses Diagnosis Chronic atrial fibrillation (HCC)- Primary Atrial fibrillation documented in this encounter Advance Directives Documents on File Type Date Recorded Patient Zigzag Elastic Attacher Expl anatpari POLST 01/26/2021 [place] DERS FOR LIFE-SUSTAINING [...] the patient have Health Care Power of Pole Peeling Machine Operator Helper? No Code Status History Code Status Date Activated Date Inactivated Comments No Code 03/10/2022 7:41 AM 03/10/2022 2:02 PM This order reflects the patients wishes and were consensually agreed upon. Question Answer Comments Discussion of Advance Directives occurred with: Patient Does the patient have a Living Will? No Does the patient have Health Care Power of Pole Peeling Machine Operator Helper? No Full Code 05/07/2010 8:55 AM 05/11/2010 9:01 PM This order reflects the patients wishes and were consensually agreed upon. Question Answer Comments Discussion of Advance Directives occurred with: Patient Does the patient have a Living Will? No Does the patient have Health Care Power of Pole Peeling Machine Operator Helper? No Full Code 05/07/2010 6:07 AM [...] the patient have Health Care Power of Pole Peeling Machine Operator Helper? No Care Teams Technical Expert Relationship Specialty Start Date End Date Jocelyne Desai DO [address] [place] [address] [place] [address] PCP - General Internal Medicine 11/09/16 documented as of this encounter
--- OUTSIDE RECORDS SUMMARY | 2023-08-01 09:39 | External Medical Summary | Summary of Care ---
Author Name Unknown Organization [facility] Address [address] [facility] [place] [address] Phone [phone] Care Team Providers Care Machine Riveter Name Role Phone DesaiElissaJocelyne Briggs DO Primary Care Provider + [phone] Reason for Visit * Reason Comments Dosage Adjustment Via Phone (anticoag Cl inic) Encounter Details Date Type Department Care Team (Latest Contact Info) Description 06/19/2023 6:45 AM EDT Anticoagulation Pharmacy Call Center [phone] [facility] [place] [address] [facility] [address] [place] [address] Chronic atrial fibrillation (HCC)* Allergies No known active allergiesdocumented as of this encounter (statuses as of 06/19/2023) Medications Medication Sig Dispensed Refills Start Date [...] as of this encounter (statuses as of 06/19/2023) Active Problems Patient Care Coordination No te Formatting of this note migh t be different from the original. Good connectivity [facility] for wound care [phone] Televideo if needed. 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 SPINAL STENOSIS-LUMBAR 09/23/2002 Vitamin D deficiency Cervical spinal stenosis documented as of this encounter (statuses as of 06/19/2023) Resolved Problems Problem Noted Date Diagnosed Date Resolved Date Depression, unspecified 11/09/2021 03/2 Depression, unspecified 11/09/202105/2022 Cellulitis of right leg 07/13/202105/2022 Last Assessment & Plan: Suspect this could be early/localized. Will treat with 7 days antibiotic. If pt cannot be reassess by Dr. Braxton office early next week will need [facility] provider recheck Multiple and open [...] 11/17/19 23 LUMBAGO 12/24/2002 05/09/2007 LOC PRIM [id number] 12/24/200208/13 DEGENERATIVE SKIN DISORD 12/24/2002 VERTEBRAL FX [...] as of this encounter (statuses as of 06/19/2023) Immunizations Name Administration Dates Next Due COVID-19 [...] encounter Progress Notes * Estefania Palacios, [facility] - 06/19/2023 11:43 AM EDT Pt remains admitted to [facility] [place]. Per CM notes, pt prefers [facility] at d/c. [facility] will follow up for d/cplans. Estefania Palacios Rph, Pharm.D. Clinical Pharmacist Centralized Clinical Pharmacy Services (CCPS) (formerly Telepharmacy) [phone] 06/19/2023,11:46 AM documented in this encounter Plan of Treatment Upcoming Encounters Date Type Department Care Team (Late st Contact Info) Description 06/21/2023 6:45 AM EDT Anticoagulation Pharmacy Call Center 58-60 [facility] [place] [address] Ccp, [facility] 58 60 [facility] [place] [address] 11/20/2023 2:00 PM EDT Office Visit Nephrology [address] [place] [address] ZemaitisMarycarmen PA-C [address] [place] [address] 02/20/2024 12:30 PM EST Nurse Only Ancillary [address] [place] [address] [place], Nurse Annual [address] [place] [address] Scheduled Procedures Name Priority Associated Diagnoses Date/Ti me COLONOSCOPY FLEXIBLE PROXIMA L DIAGNOSTIC Recall Screening for colon cancer Health Maintenance Due Date Last Done Comments Cologuard 1997 Sigmoidoscopy 1997 Fecal Occult Blood Test 09/02/2009 09/02/2008, 05/04 Diabetic Eye Exam 12/30/2022 12/30/2021, , 12/28/2021, Additional history exists HbA1c 05/18/2023 11/16/2022, 09/2 08/2022, 05/13/2022, Additional history exists GFR 08/24/2023 02/23/2023, 12/0 06/2022, 11/16/2022, Additional history exists Albumin/Creatinine Ratio 11/17/2023 023, 05/13/2022, 09/29/2021, Additional history exists CKD PHOS USE SMARTSET 22854 11/17/2023 10/0 05/2022, 09/29/2021, 05/12/2021, Additional history exists Diabetic Foot Exam 11/17/2023 11/16/2022, 0 05/05/2021, 11/22/2017, Additional history exists CKD HGB USE SMARTSET 51716 01/18/202401/17, 01/17/2023, 11/16/2022, Additional history exists Depression [...] this encounter Medical Devices Implanted Type Area Consulting Engineer Device Identifier Shelf Expiration Date Model / Serial / Lot Shaft Fibula 6cm [id number] - [id number] [place]planted:Q[place]: 1 [place] 09/05/[place] [facility] [place] Human N/A: Spine Cervical MUSCULOSKELETAL TRANSPLANT FND 04/20/2010 [id number] / [id number] 0P / Stent Eso Gw 22x70 [id number] - [id number] Implanted:Qty: 1 on 01/21/2008 [place] [facility] [place]A: Esophagus ALVEOLUS INC 04/12/2009 82810-521 / / [id number] Depuy Uniplate 32 Implanted:Qty: 1 on 09/05/2008 [place] [facility] [place]: Spine Cervical TAMMY & TAMMY DEPUY 1897-02-302 / / Depuy Uniplate Screw 14mm Implanted:Qty: 2 on 09/05/2008 [place] [facility] [place]: Spine Cervical TAMMY & TAMMY DEPUY 189--017 / / Depuy Lordotic Bengal Cage Implanted:Qty: 1 on 05/07/2010 [place] [facility] [place]A: Neck 1773--146 / 1773-146 / Plate Zach 3 Level Ti 54mm - [id number] Implanted:Qty: 1 on 05/07/2010 [place] [facility] [place]A: Neck JNJ : DEPUY SPINE [id number] 54 / / Screw Zach Const St Ti 14mm - [id number] Implanted:Qty: 4 on 05/07/2010 [place] [facility] [place]: Neck JNJ : DEPUY SPINE [id number] 14 / / Screw 3.5x14 Mntr Fa [id number] - [id number] Implanted:Qty: 8 on 05/07/2010 [place] [facility] [place]: Spine Cervical JNJ : ETHICON CARDIOVATIONS [id number] / / Jarrell [id number] - [id number] Implanted:Qty: 1 on 05/07/2010 [place] [facility] [place]: Spine Cervical JNJ : ETHICON CARDIOVATIONS [id number] / / Screw Inner Mntr [id number] - [id number] Implanted:Qty: 8 on 05/07/2010 [place] [facility] [place]: Spine Cervical JNJ : ETHICON CARDIOVATIONS [id number] / / Envista Intraocular Lens Implanted:Qty: 1 on 03/10/2022 by Liang Marshall MD at OR [facility] Right: Eye BAUSCH & LOMB 08/13/2023 [id number] / [id number] / [id number] Envista Intraocular Lens Implanted:Qty: 1 on 03/24/2022 by Liang Marshall MD at OR [facility] Left: Eye BAUSCH & LOMB 07/13/2024 [id number] / [id number] / [id number] documented as of this encounter Visit Diagnoses Diagnosis Chronic atrial fibrillation (HCC)- Primary Atrial fibrillation documented in this encounter Advance Directives Documents on File Type Date Recorded 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 No Code Status History Code Status Date Activated Date Inactivated Comments No Code 03/10/2022 7:41 AM 03/10/2022 2:02 PM This order reflects the patients wishes and were consensually agreed upon. Question Answer Comments Discussion of Advance Directives occurred with: Patient Does the patient have a Living Will? No Does the patient have Health Care Power of Chassis Mechanic? No Full Code 05/07/2010 8:55 AM 05/11/2010 9:01 PM This order reflects the patients wishes and were consensually agreed upon. Question Answer Comments Discussion of Advance Directives occurred with: Patient Does the patient have a Living Will? No Does the patient have Health Care Power of Chassis Mechanic? No Full Code 05/07/2010 6:07 AM 05/07/2010 [...] the patient have Health Care Power of Chassis Mechanic? No Care Teams Machine Riveter Relationship Specialty Start Date End Date Jocelyne Desai DO [address] [place] [address] [place] [address] PCP - General Internal Medicine 11/09/16 documented as of this encounter
--- OUTSIDE RECORDS SUMMARY | 2023-08-01 09:39 | External Medical Summary | Summary of Care ---
Author Name Unknown Organization [facility] Address [address] [facility] [place] [address] Phone [phone] Care Team Providers Care Funnel Setter Name Role Phone DesaiElissaJocelyne Briggs DO Primary Care Provider + [phone] Reason for Visit * Reason Comments Dosage Adjustment Via Phone (anticoag Cl inic) Encounter Details Date Type Department Care Team (Latest Contact Info) Description 06/21/2023 6:45 AM EDT Anticoagulation Pharmacy Call Center 58-60 [facility] [place] [address] [facility] 58 60 [place] [address] Chronic atrial fibrillation (HCC)* Allergies No known active allergiesdocumented as of this encounter (statuses as of 06/21/2023) Medications Medication Sig Dispensed Refills Start Date [...] as of this encounter (statuses as of 06/21/2023) Active Problems Patient Care Coordination No te Formatting of this note migh t be different from the original. Good connectivity [facility] for wound care [phone] Televideo if needed. Problem Noted Date Diagnosed [...] up with podiatry,. 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 SPINAL STENOSIS-LUMBAR 09/23/2002 Vitamin D deficiency Cervical spinal stenosis documented as of this encounter (statuses as of 06/21/2023) Resolved Problems Problem Noted Date Diagnosed Date [...] 11/17/19 23 LUMBAGO 12/24/2002 05/09/2007 LOC PRIM [id number] 12/24/200208/13 DEGENERATIVE SKIN DISORD 12/24/2002 VERTEBRAL FX [...] as of this encounter (statuses as of 06/21/2023) Immunizations Name Administration Dates Next Due COVID-19 [...] encounter Progress Notes * Estefania Palacios, [facility] - 06/21/2023 2:02 PM EDT PT remains admitted to [facility]. Per CM notes, [facility] Grimaldo has a bed but pt not medically ready for d/c. [facility] will continue to follow up for d/c plans. Estefania Palacios [facility], Pharm.D. Clinical Pharmacist Centralized Clinical Pharmacy Services (CCPS) (formerly Telepharmacy) [phone] 06/21/2023,2:04 PM documented in this encounter Plan of Treatment Upcoming Encounters Date Type Department Care Team (Late st Contact Info) Description 11/20/2023 2:00 PM EDT Office Visit Nephrology [address] [place] [address] Marycarmen Kowalski PA-C [address] [place] [address] 02/20/2024 12:30 PM EST Nurse Only Ancillary [address] [place] [address] [place], Nurse Annual [address] [place] [address] Scheduled Procedures Name Priority Associated Diagnoses Date/Ti [...] Additional history exists CKD PHOS USE SMARTSET 65583 11/17/202305/2022, 09/29/2021, 05/12/2021, Additional history exists Diabetic Foot Exam 11/17/2023 11/16/2022, 0 05/05/2021, 11/22/2017, Additional history exists CKD HGB USE SMARTSET 51111 01/18/202401/17, 01/17/2023, 11/16/2022, Additional history exists Depression [...] this encounter Medical Devices Implanted Type Area Bicycle Taxi Driver Device Identifier Shelf Expiration Date Model / Serial / Lot Shaft Fibula 6cm [id number] - [id number] Implanted:Qty: 1 on 09/05/[place] [facility] [place] - Human N/A: Spine Cervical MUSCULOSKELETAL TRANSPLANT FND 04/20/2010 [id number] / [id number] 0P / Stent Eso Gw 22x70 [id number] - [id number] Implanted:Qty: 1 on 01/21/2008 [place] [facility] [place]/A: Esophagus ALVEOLUS INC 04/12/2009 87767-127 / / [id number] Depuy Uniplate 32 Implanted:Qty: 1 on 09/05/2008 [place] [facility] [place]/A: Spine Cervical TAMMY & TAMMY DEPUY 302 / / Depuy Uniplate Screw 14mm Implanted:Qty: 2 on 09/05/2008 [place] [facility] [place]/A: Spine Cervical TAMMY & TAMMY DEPUY 017 / / Depuy Lordotic Bengal Cage Implanted:Qty: 1 on 05/07/2010 [place] [facility] [place] N/A: Neck 1773-06-146 / 1773-146 / Plate Zach 3 Level Ti 54mm - [id number] Implanted:Qty: 1 on 05/07/2010 [place] [facility] [place]/A: Neck JNJ : DEPUY SPINE [id number] 54 / / Screw Zach Const St Ti 14mm - [id number] Implanted:Qty: 4 on 05/07/2010 [place] [facility] [place]/A: Neck JNJ : DEPUY SPINE [id number] 14 / / Screw 3.5x14 Mntr Fa [id number] - [id number] Implanted:Qty: 8 on 05/07/2010 [place] [facility] [place]/A: Spine Cervical JNJ : ETHICON CARDIOVATIONS [id number] / / Jarrell [id number] - [id number] Implanted:Qty: 1 on 05/07/2010 [place] [facility] [place]/A: Spine Cervical JNJ : ETHICON CARDIOVATIONS [id number] / / Screw Inner Mntr [id number] - [id number] Implanted:Qty: 8 on 05/07/2010 [place] [facility] [place]/A: Spine Cervical JNJ : ETHICON CARDIOVATIONS [id number] / / Envista Intraocular Lens Implanted:Qty: 1 on 03/10/2022 by Liang Marshall MD at OR [facility] Right: Eye BAUSCH & LOMB 08/13/2023 [id number] / [id number] / [id number] Envista Intraocular Lens Implanted:Qty: 1 on 03/24/2022 by Liang Marshall MD at OR [facility] Left: Eye BAUSCH & LOMB 07/13/2024 [id number] / [id number] / [id number] documented as of this encounter Visit Diagnoses Diagnosis Chronic atrial fibrillation (HCC)- Primary Atrial fibrillation documented in this encounter Advance Directives Documents on File Type Date Recorded Patient Physician Practice Consultant Expl anation POLST 01/26/2021 [place] DERS [...] the patient have Health Care Power of Trauma Manager? No Code Status History Code Status Date Activated Date Inactivated Comments No Code 03/10/2022 7:41 AM 03/10/2022 2:02 PM This order reflects the patients wishes and were consensually agreed upon. Question Answer Comments Discussion of Advance Directives occurred with: Patient Does the patient have a Living Will? No Does the patient have Health Care Power of Trauma Manager? No Full Code 05/07/2010 8:55 AM 05/11/2010 9:01 PM This order reflects the patients wishes and were consensually agreed upon. Question Answer Comments Discussion of Advance Directives occurred with: Patient Does the patient have a Living Will? No Does the patient have Health Care Power of Trauma Manager? No Full Code 05/07/2010 6:07 AM [...] the patient have Health Care Power of Trauma Manager? No Care Teams Funnel Setter Relationship Specialty Start Date End Date Jocelyne Desai DO [address] [place] [address] [place] [address] PCP - General Internal Medicine 11/09/16 documented as of this encounter
--- OUTSIDE RECORDS SUMMARY | 2023-08-01 09:39 | External Medical Summary | Summary of Care ---
Author Name Unknown Organization [facility] Address [address] [facility] [place] [address] Phone [phone] Care Team Providers Care Social Services Specialist Name Role Phone DesaiElissaJocelyne Briggs DO Primary Care Provider + [phone] Reason for Visit * Reason Comments Dosage Adjustment Via Phone (anticoag Cl inic) Encounter Details Date Type Department Care Team (Latest Contact Info) Description 06/23/2023 6:45 AM EDT Anticoagulation Pharmacy Call Center [phone] [facility] [place] [address] [facility] [phone] [facility] [address] Chronic atrial fibrillation (HCC)* Allergies No known active allergiesdocumented as of this encounter (statuses as of 06/23/2023) Medications Medication Sig Dispensed Refills Start Date [...] as of this encounter (statuses as of 06/23/2023) Active Problems Patient Care Coordination No te Formatting of this note migh t be different from the original. Good connectivity [facility] for wound care [phone] Televideo if needed. Problem Noted Date Diagnosed Date History of KS (myocardial infarction) 11/09/2021 Trigger ring finger of [...] 11/14/2018 Type 2 diabetes, controlled, with peripheral iekr ropathy 11/14/2018 Last Assessment & Plan: DM [...] ICD-10 update of inactive term PLATT RESEARCH OTHER*[id number] 02/20/2007 ADVANCE DIRECTIVE INFORMATION 01/19/2005 Overview: Yes, Patient instructed to provide copy of advance directive for provider to review and to be scanned into Electronic Medical Record No, Advance Directive brochure given to patient at prior appointment. SPINAL STENOSIS-LUMBAR 09/23/2002 Vitamin D deficiency Cervical spinal stenosis documented as of this encounter (statuses as of 06/23/2023) Resolved Problems Problem Noted Date Diagnosed Date Resolved Date Depression, unspecified 11/09/2021 03/2 Depression, unspecified 11/09/202105/2022 Cellulitis of right leg 07/13/202105/2022 Last Assessment & Plan: Suspect this could be early/localized. Will treat with 7 days antibiotic. If pt cannot be reassess by Dr. Braxton office early next week will need [facility] provider recheck Multiple and open wound [...] 11/17/19 23 LUMBAGO 12/24/2002 05/09/2007 LOC PRIM [id number] 12/24/200208/13 DEGENERATIVE SKIN DISORD 12/24/2002 VERTEBRAL FX [...] as of this encounter (statuses as of 06/23/2023) Immunizations Name Administration Dates Next Due COVID-19 [...] this encounter Progress Notes * Estefania Palacios, [facility] - 06/23/2023 11:19 AM EDT Pt remains admitted to [facility]. Per CM notes, likely d/c to [facility] next week. Estefania Palacios Rp, Pharm.D. Clinical Pharmacist [facility] ([facility]) (formerly Telepharmacy) [phone] 06/23/2023,11:23 AM documented in this encounter Plan of Treatment Upcoming Encounters Date Type Department Care Team (Late st Contact Info) Description 11/20/2023 2:00 PM EDT Office Visit Nephrology [address] [place] [address] Marycarmen Kowalski PA-C [address] [place] [address] 02/20/2024 12:30 PM EST Nurse Only Ancillary [address] [place] [address] [place], Nurse [address] [place] [address] Scheduled Procedures Name Priority Associated Diagnoses Date/Ti [...] Additional history exists CKD PHOS USE SMARTSET 99692 11/17/2023 10/0 05/2022, 09/29/2021, 05/12/2021, Additional history exists Diabetic Foot Exam 11/17/2023 11/16/2022, 0 05/05/2021, 11/22/2017, Additional history exists CKD HGB USE SMARTSET 86769 01/18/202401/17, 01/17/2023, 11/16/2022, Additional history exists Depression [...] this encounter Medical Devices Implanted Type Area Principal Web Developer Device Identifier Shelf Expiration Date Model / Serial / Lot Shaft Fibula 6cm [id number] - [id number] Implanted:Qty: 1 on 09/05/2008 at OR [facility] Tissue - Human N/A: Spine Cervical MUSCULOSKELETAL TRANSPLANT FND 04/20/2010 [id number] / [id number] / Stent Eso Gw 22x70 [id number] - [id number] Implanted:Qty: 1 on 01/21/2008 at OR [facility] N/A: Esophagus [employer] 04/12/2009 [id number] / / [id number] Depuy Uniplate 32 Implanted:Qty: 1 on 09/05/2008 [...] Plate Zach 3 Level Ti 54mm - [id number] Implanted:Qty: 1 on 05/07/2010 at OR [facility] N/A: Neck JNJ : DEPUY SPINE [id number] / / Screw Zach Const St Ti 14mm - [id number] Implanted:Qty: 4 on 05/07/2010 at OR [facility] N/A: Neck JNJ : DEPUY SPINE [id number] / / Screw 3.5x14 Mntr Fa [id number] - [id number] Implanted:Qty: 8 on 05/07/2010 at OR [facility] N/A: Spine Cervical JNJ : [employer] [id number] / / Jarrell [id number] - [id number] Implanted:Qty: 1 on 05/07/2010 at OR [facility] N/A: Spine Cervical JNJ : [employer] [id number] / / Screw Inner Mntr [id number] - [id number] Implanted:Qty: 8 on 05/07/2010 at OR [facility] N/A: Spine Cervical JNJ : [employer] [id number] / / Envista Intraocular Lens Implanted:Qty: 1 on 03/10/2022 by Liang Marshall MD at OR [facility] Right: Eye BAUSCH [employer] LOMB 08/13/2023 [id number] / [id number] / [id number] Envista Intraocular Lens Implanted:Qty: 1 on 03/24/2022 by Liang Marshall MD at OR [facility] Left: Eye BAUSCH [employer] LOMB 07/13/2024 [id number] / [id number] / [id number] documented as of this encounter Visit Diagnoses Diagnosis Chronic atrial fibrillation (HCC)- Primary Atrial fibrillation documented in this encounter Advance Directives Documents on File Type Date Recorded 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 Question Answer Comments Discussion of Advance Directives occurred with: Patient Does the patient have a Living Will? No Does the patient have Health Care Power of Financial Representative? No Code Status History Code Status Date Activated Date Inactivated Comments No Code 03/10/2022 7:41 AM 03/10/2022 2:02 PM This order reflects the patients wishes and were consensually agreed upon. Question Answer Comments Discussion of Advance Directives occurred with: Patient Does the patient have a Living Will? No Does the patient have Health Care Power of Financial Representative? No Full Code 05/07/2010 8:55 AM 05/11/2010 9:01 PM This order reflects the patients wishes and were consensually agreed upon. Question Answer Comments Discussion of Advance Directives occurred with: Patient Does the patient have a Living Will? No Does the patient have Health Care Power of Financial Representative? No Full Code 05/07/2010 6:07 AM [...] the patient have Health Care Power of Financial Representative? No Care Teams Social Services Specialist Relationship Specialty Start Date End Date Jocelyne Desai DO [address] [place] [address] [place] [address] PCP - General Internal Medicine 11/09/16 documented as of this encounter
[2023-08-01 09:40] LABS: Troponin I High Sensitivity 30.7 pg/ml (0-20)
--- NOTE | 2023-08-01 09:41 | XRay Report ---
XR chest 1V portable HISTORY: 73 years-old Male Sepsis acute sepsis COMPARISON: 06/14/2023 TECHNIQUE: AP view of the chest FINDINGS: Cardiac silhouette is enlarged. Single lead left subclavian pacer. Lungs are clear. No pneumothorax o r pleural effusion. Cervical spinal fusion hardware. Bones are grossly intact. IMPRESSION: Cardiomegaly without acute process. ACT 112: Negative or not required by law. The above report was generated using voice recognition software. It may contain grammatical, syntax o r spelling errors. Electronically signed by: Monroe Lloyd M.D. 08/01/2023 9:40 AM
[2023-08-01] MEDS: SODIUM CHLORIDE 0.9% 500 ML IV SCH (09:53)
[2023-08-01 09:56] LABS: INR 3.6 (0.9-1.1); Partial Thromboplastin Ratio 1.7; Partial Thromboplastin Time 46 Seconds (21-31); Prothrombin Time 34.5 Seconds (9.0-12.0)
[2023-08-01] MEDS: SODIUM CHLORIDE 0.9% 250 ML IV ONE (09:56)
[2023-08-01] MEDS: MAGNESIUM SULFATE / D5W 1 GM/100 ML BAG IV SCH (09:59)
[2023-08-01 10:35] LABS: Appearance Urine Cloudy (Clear); Bacteria Urine Automated 4+ (None Seen); Bilirubin Urine Negative (Negative); Blood Urine 1+ (Negative); Cast Urine Automated 0-2 /lpf (0-2); Color Urine Yellow; Epithelial Cell Urine Auto 0-2 /hpf (0-2); Glucose Urine UA Negative (Negative); Ketones Urine Negative (Negative); Leukocyte Esterase Urine 3+ (Negative); Nitrite Urine Positive (Negative); Protein Urine 1+ (Negative); RBC Urine Automated 0-2 /hpf (0-2); Urobilinogen Urine Negative (Negative); WBC Urine Automated >50 /hpf (0-5); pH Urine 5.5 (4.5-7.5)
[2023-08-01] MEDS ORDERED: ALUMINUM/MAGNESIUM SUSP 30 ML UDC PO PRN (10:46)
[2023-08-01] MEDS ORDERED: MAGNESIUM HYDROXIDE SUSP 30 ML UDC PO PRN (10:46)
--- NOTE | 2023-08-01 10:55 | History & Physical Report ---
Date of Service August 01, 2023 Assessment & Plan (1) Cellulitis of leg, right: Plan Infected RLE calf wound Chronic unstageable ulcers of RLE forefoot and LLE heel Patient being taken care of at [facility] wound care clinic [[phone]] Per patient, his RLE cough wound was debrided and cultured on Monday, he was started on 5-day course of Nuzrya which she completed on Monday. Per wound clinic, his wound culture is growing MRSA and Pseudomonas and gram- negative rods. Follow full reports once that is faxed to our hospital. Start patient on daptomycin and Zosyn, probiotic, hold statin, CPK baseline level. Labs in AM. Follow admitting wound and blood culture. UTI: Patient already on antibiotic, see above. Follow urine culture. Atrial fibrillation: Patient on Coumadin, supratherapeutic INR today, hold Coumadin today. Other chronic medical conditions: HTN, CAD status post pacemaker, NIDDM diabetes, HLD, BPH---- continue with/resume home meds as and when able. DVT prophylaxis: Supratherapeutic INR, Coumadin on hold Full code History of Present Illness Chief Complaint: rle wound infection Primary Care Provider: Jocelyne Desai, 73 yo M w/ pmh of ischemic left MCA stroke (2018 inpatient stay at [facility]), AF ( On Coumadin), DM2, HLD, CKD, tachy-geronimo syndrome s/p PPM, depression, and PAD s/p stent RLE, RLE cellulitis in the recent past presented to the ED At referral of [facility] wound care [[phone] per patient]. Patient reports that he had cellulitis about a month ago and was treated, there was a blister that broke and was being taken care of at wound care. Last Monday they were debriding the wound and packed it. They sent the wound for culture, once the results were out, he was notified yesterday to go to the hospital for management. He also reports that he was given a course of Nuzrya for 5 days which he completed on Monday. He denies fever/sore throat/cough/chest pain/belly pain/acute changes in bowel or bladder habit/nausea/vomiting/headache/dizziness. He denies pain or burning with passing urine. He reports decreased appetite. Reports quitting smoking many years ago, denies recreational drug use, reports very occasional alcohol use. Full code Medications were reviewed with the patient in detail. Plan of care were discussed with the patient in detail. Called his [facility] wound care clinic, the culture from Monday grew MRSA and Pseudomonas and gram-negative rods per them. They are faxing the full reports to us. Will start him empirically on daptomycin and Zosyn. Allergies Allergy/AdvReac Type Severity Reaction Status Date / Time No Known Allergies Allergy Verified 08/01/23 09:23 Home Medications Medication Instructions Recorded Confirmed Type pediatric anxgwljv-wubh-pkc 1 tab PO PM ##0 04/11/13 08/01/23 History (Flintstones Complete (iron) chewable tablet) atorvastatin 40 mg tablet 40 mg PO PM #0 tabs 01/08/17 08/01/23 History cholecalciferol (vitamin D3) 25 2,000 unit PO PM 10/18/17 08/01/23 History mcg (1,000 unit) capsule (Vitamin D3) cyanocobalamin (vitamin B-12) 1,000 mcg PO PM 05/06/19 08/01/23 History 1,000 mcg tablet tamsulosin 0.4 mg capsule 0.4 mg PO PM 05/06/19 08/01/23 History magnesium oxide 400 mg PO QAM 09/26/19 08/01/23 History triamcinolone acetonide 0.1 % 1 applic topical BID PRN Rash 08/11/20 08/01/23 History topical cream acetaminophen 500 mg tablet 1,000 mg PO Q6H PRN Pain 12/17/20 08/01/23 History aspirin 81 mg tablet 81 mg PO QPM 12/21/20 08/01/23 History warfarin 3 mg tablet See Rx Instructions .Route .COMPLEX 10/07/22 08/01/23 History cyclobenzaprine 10 mg tablet 10 mg PO Q8H PRN muscle spasm #15 10/16/22 08/01/23 Rx tabs metoprolol succinate 25 mg 25 mg PO QAM #30 tabs 10/16/22 08/01/23 Rx tablet,extended release 24 hr midodrine 2.5 mg tablet 2.5 mg PO TID@0800,1200,1700 #90 06/27/23 08/01/23 Rx tabs oxycodone 5 mg tablet 5 mg PO Q6H PRN pain #20 tabs 06/27/23 08/01/23 Rx torsemide 40 mg tablet (Soaanz) 40 mg PO BID #60 tabs 06/27/23 08/01/23 Rx potassium chloride 20 mEq 20 meq PO QAM 08/01/23 08/01/23 History tablet,extended release(part/cryst) semaglutide 0.25 mg or 0.5 mg (2 0.25 mg subcut WK 08/01/23 08/01/23 History mg/3 mL) subcutaneous pen injector (Ozempic) Past Med/Surg History Problem List (Updated 06/27/23 @ 14:16 by Rex Almendarez MD) Leg pain, right Morbid obesity Cellulitis of leg, right (Acute) Pacemaker battery depletion Hx MRSA infection Cellulitis of right lower extremity Acute dyspnea (Acute) Acute exacerbation of CHF (congestive heart failure) (Acute) Non-ST elevation NH (NSTEMI) (Acute) Acute kidney injury superimposed on chronic kidney disease (Acute) Chronic osteomyelitis MRSA infection Traumatic open wound of lower leg Infected wound Status post partial amputation of foot Abdominal pannus Venous stasis ulcer of right lower leg with edema of right lower leg Chronic venous insufficiency of lower extremity (Chronic) Diabetic ulcer of toe (Acute) Diabetic ulcer of right foot (Acute) Spinal stenosis (Chronic) CHF (congestive heart failure) (Chronic) Diabetes type 2 with atherosclerosis of arteries of extremities Right hip pain Unsteady gait Personal history of diabetic foot ulcer Diabetic peripheral neuropathy associated with type 2 diabetes mellitus Diabetes type 2, controlled NIDDM Atrial fibrillation (Chronic) Peripheral arterial disease (Chronic) 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, 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, Right great toe amputation 07/2020 with revision 08/2020 Hypertension (Chronic) Chronic anemia CVA (cerebral vascular accident) 01/2018; residual right sided weakness Mixed sleep apnea No device (previous BIPAP) CKD (chronic kidney disease), stage III Dyslipidemia Pacemaker (Chronic) Left, normal single chamber pacemaker function with stable pacing and sensing thresholds per pacer check 12/08/20 S Tachy-geronimo syndrome Medical History Hyperlipemia Essential hypertension 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 kidney disease Degenerative cervical spinal stenosis Degenerative lumbar spinal stenosis Proliferative diabetic retinopathy Venous insufficiency of both lower extremities Erectile dysfunction Nonalcoholic 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 (PLATT) 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 of 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 Hyperparathyroidism, secondary renal Esophageal obstruction Complex sleep apnea syndrome Vitamin B12 deficiency Persistent proteinuria Morbid obesity Paroxysmal SVT (supraventricular tachycardia) Myocardial Infarction 2018 > medically managed Diabetic peripheral neuropathy associated with type 2 diabetes mellitus Diabetes type 2, controlled NIDDM Peripheral arterial disease 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, 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, Right great toe amputation 07/2020 with revision 08/2020 Chronic anemia CVA (cerebral vascular accident) 01/2018; residual right sided weakness Mixed sleep apnea No device (previous BIPAP) CKD (chronic kidney disease), stage III Dyslipidemia Tachy-geronimo syndrome CHF (congestive heart failure) Acute renal failure superimposed on stage 3 chronic kidney disease 08/2020 hospitalization, UTI and osteomyelitis, necrotizing fasciitis Depression Pacemaker Left, normal single chamber pacemaker function with stable pacing and sensing thresholds per pacer check 12/08/20 [facility] Hypertension Sepsis 2013 Atrial fibrillation Surgical History History of amputation of lesser toe of right foot Hx of angioplasty Amputation toe Right great toe amputation (08/12/20): MAC at [facility] History of esophagogastroduodenoscopy (EGD) History of vascular surgery Left popliteal, 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 (10/2019) Right great toe I&D, revision amputation (08/21/20): MAC at [facility] History of hand surgery Tendon transfer Gastric bypass status for obesity Family History Brother Diabetes Mother Diabetes Father Diabetes Other Cancer Hypertension Social History Smoking Status: Former smoker Tobacco Type: Cigarettes Second Hand Exposure: No; Do You Dip or Chew Tobacco: No; Hx Alcohol Use: No Hx Substance Use: No Preferred Language: Macedonian 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 Ability: Effective Visual Impairment: No Limitations Hearing Ability: Normal Underwriting Clerk Required: No Beliefs That Will Affect Care: None marital status: Current Living Situation: Alone Current Living Situation Comment: Daughter lives upstairs. current occupational status: retired How many Children do You have: 2 Feels Safe at Home: Yes Diet Comment: Educated to increase protein, vitamin c, d and zinc Assistive Devices: BiPap, Cane, Hospital Bed, Lift Chair and Walker Review of Systems Review of Systems: Negative otherwise mentioned in HPI. Physical Exam Physical Exam: GENERAL: Alert and oriented x3. NAD, on RA. HEENT: No pallor, no icterus. Pupils equal, round and reactive to light. Oral mucosa moist. NECK: No JVD, no neck masses. HEART: S1 and S2 heard. Regular rate and rhythm. No murmur, no gallop. RESPIRATORY SYSTEM: Normal AP diameter. No accessory muscle use. No wheezing, no crackles. ABDOMEN: Soft, bowel sounds present, nontender, no distention. CENTRAL NERVOUS SYSTEM: No facial droop. Speech is clear. Obeys simple c ommands. Moves extremities. EXTREMITIES: 1-2 + ble edema, chronis ble skin changes, rle medial calf w/ infected/packed wound w/ surrounding tender/erythema. Rle forefoot and LLE heel w/ unstageable ulcer. Results & Data Results & Data Vital Signs (Past 12 Hours) Vital Signs Temp Pulse Pulse Resp BP BP Pulse Ox 08/01/23 10:30 63 12 116/68 99 08/01/23 10:15 60 12 127/71 99 08/01/23 09:45 79 25 H 138/96 100 08/01/23 09:25 60 15 138/96 100 08/01/23 09:24 60 25 H 100 08/01/23 08:53 36.9 C 61 12 138/96 99 08/01/23 08:48 65 08/01/23 08:29 36.6 C 94 H 16 100/60 94 O2 Del Method 08/01/23 10:30 Room Air 08/01/23 10:15 Room Air 08/01/23 09:45 Room Air 08/01/23 09:25 Room Air 08/01/23 09:24 Room Air 08/01/23 08:53 Room Air 08/01/23 08:48 08/01/23 08:29 Room Air
[2023-08-01] MEDS: DAPTOmycin 300 MG in SYRINGE 0 ML IV SCH (11:00)
[2023-08-01] MEDS: POTASSIUM CHLORIDE CRTAB 20 MEQ TABCR PO STA (11:01)
[2023-08-01] MEDS ORDERED: CYCLOBENZAPRINE HCL 10 MG TAB PO PRN (11:06)
[2023-08-01] MEDS ORDERED: oxyCODONE HCL IR 5 MG TAB (IMMEDIATE RELEASE) PO PRN (11:06)
[2023-08-01] MEDS ORDERED: GLUCOSE 10 TAB/TUBE PO PRN (11:08)
[2023-08-01] MEDS ORDERED: GLUCAGON FOR INJ 1 MG VIAL SQ PRN (11:08)
[2023-08-01] MEDS ORDERED: CARBOHYDRATES FOR HYPOGLYCEMIA PO PRN (11:08)
[2023-08-01] MEDS ORDERED: GLUCOSE 40% GEL 15 GM TUBE PO PRN (11:08)
[2023-08-01] MEDS ORDERED: DEXTROSE 50% 50 ML SYRINGE IV PRN (11:08)
[2023-08-01] MEDS: PIPERACILLIN/TAZOBACTAM 4.5 GM/100 ML BAG IV ONE (11:44)
[2023-08-01 12:18] LABS: Troponin I High Sensitivity 31.2 pg/ml (0-20)
--- NOTE | 2023-08-01 12:55 | Electrocardiogram Report ---
Test Reason : Blood Pressure : / mmHG Vent. Rate : 060 BPM Atrial Rate : 059 BPM P-R Int : 000 ms QRS Dur : 212 ms QT Int : 550 ms P-R-T Axes : 000 -65 108 degrees QTc Int : 550 ms Ventricular-paced rhythm Abnormal ECG When compared with ECG of 14-JUN-2023 08:51, Vent. rate has decreased BY 9 BPM Confirmed by Olu Oliver ([id number]) on 08/01/2023 12:55:27 PM Referred By: Confirmed By:Olu Oliver
[2023-08-01] MEDS: INSULIN ASPART PER UNIT CHARGE SC SCH (14:02)
[2023-08-01] MEDS: MIDODRINE HCL 2.5 MG TAB PO SCH (14:50)
[2023-08-01] MEDS: PIPERACILLIN/TAZOBACTAM 4.5 GM in DEXTROSE 5% MINI-B 100 ML IV SCH (20:52)
[2023-08-01] MEDS: TORSEMIDE 20 MG TAB PO SCH (20:55)
[2023-08-01] MEDS: CYANOCOBALAMIN (B-12) 500 MCG TABLET PO SCH (20:56)
[2023-08-01] MEDS: CHOLECALCIFEROL 25 MCG (1000 UNITS) TAB PO SCH (20:56)
[2023-08-01] MEDS: ASPIRIN 81 MG ECTAB PO SCH (20:56)
[2023-08-01] MEDS: TAMSULOSIN HCL 0.4 MG CAP PO SCH (20:56)
[2023-08-01] MEDS: MULTIVITAMIN CHEWABLE TAB PO SCH (20:57)
[2023-08-01] MEDS ORDERED: CHOLECALCIFEROL 25 MCG (1000 UNITS) TAB PO SCH (21:00)
--- OUTSIDE RECORDS SUMMARY | 2023-08-01 22:55 | External Medical Summary | Summary of Care ---
Author Name Unknown Organization [facility] Address [address] [facility] [place] [address] Phone [phone] Care Team Providers Care Drama Teacher Name Role Phone Jocelyne Desai DO Primary Care Provider [phone] Encounter Details Date Type Department Care Team (Late st Contact Info) Description 08/01/2023 Orders Only Family Medicine [address] [place] [address] Jocelyne Desai DO [address] [place] [address] [place] [address] Allergies No known active allergiesdocumented as of this encounter (statuses as of 08/01/2023) Medications Medication Sig Dispensed Refills Start Date [...] as of this encounter (statuses as of 08/01/2023) Active Problems Patient Care Coordination No te Formatting of this note migh t be different from the original. Good connectivity [facility] for wound care [phone] Televideo if needed. 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 Overview: [facility] current use of 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 1 Status [...] ICD-10 update of inactive term PLATT RESEARCH OTHER*[id number] 02/20/2007 ADVANCE DIRECTIVE INFORMATION 01/19/2005 Overview: Yes, Patient instructed to provide copy of advance directive for provider to review and to be scanned into Electronic Medical Record No, Advance Directive brochure given to patient at prior appointment. SPINAL STENOSIS-LUMBAR 09/23/2002 Vitamin D deficiency Cervical spinal stenosis documented as of this encounter (statuses as of 08/01/2023) Resolved Problems Problem Noted Date Diagnosed Date Resolved Date Depression, unspecified 11/09/2021 03/2 Depression, unspecified 11/09/202105/2022 Cellulitis of right leg 07/13/202105/2022 Last Assessment & Plan: Suspect this could be early/localized. Will treat with 7 days antibiotic. If pt cannot be reassess by Dr. Braxton office early next week will need [facility] provider recheck Multiple and open [...] 11/17/19 23 LUMBAGO 12/24/2002 05/09/2007 LOC PRIM [id number] 12/24/200208/13 DEGENERATIVE SKIN DISORD 12/24/2002 VERTEBRAL FX [...] as of this encounter (statuses as of 08/01/2023) Immunizations Name Administration Dates Next Due COVID-19 mRNA, LNP-s, No Pre serve, 2-Dose Series (Moderna) 03/19/2020 COVID-19 mRNA, LNP-s, No Pre serve, 2-Dose Series (Pfizer) 02/16/2021,04/09/2020,03/19/2020 COVID-19, MRNA-LNP, 23-24, P F, 30 MCG/0.3 mL, 12 YRS AND ABOVE, IM [facility] 11/16/2022 Covid-19, Mrna, Lnp-s, Pf, B [...] Anticoagulation [facility], Ilya Lafleur [address] [place] [address] [place] [address] [facility], [address] [place] [address] 08/31/2023 1:00 PM EDT Office Visit Family Medicine [address] [place] [phone] Savanna Al PA-C [address] [place] [address] [place] [phone] 11/20/2023 2:00 PM EDT Office Visit Nephrology [address] [place] [address] Marycarmen Kowalski PA-C [address] [place] [address] 02/20/2024 12:30 PM EST Nurse Only Ancillary [address] [place] [address] [place], Nurse Annual Wellness [address] [place] [address] [place] [phone] 03/08/2024 2:30 PM EST Office Visit Family Medicine [address] [place] [phone] [place] [address] Scheduled Procedures Name Priority Associated Diagnoses Date/Ti [...] 05/05/2021, 11/22/2017, Additional history exists GFR 01/25/2024 07/31/2023, 07/14, 07/18/2023, Additional history exists Depression Screening 02/17/2024 02/16/2023 Albumin/Creatinine Ratio 07/17/2024 024, 11/16/2022, 05/13/2022, Additional history exists CKD PHOS USE SMARTSET 11758 07/17/2024 06/0 05/2023, 07/03/2023, 11/16/2022, Additional history exists CKD HGB USE SMARTSET 40844 07/25/202407/30, 07/26/2023, 07/18/2023, Additional history exists DTaP,Tdap,and Td Vaccines (3 [...] this encounter Medical Devices Implanted Type Area Diabetes Trainer Device Identifier Shelf Expiration Date Model / Serial / Lot Shaft Fibula 6cm [id number] - [id number] Implanted:Qty: 1 on 09/05/2008 [place] [facility] [place] - Human N/A: Spine Cervical MUSCULOSKELETAL TRANSPLANT FND 04/20/2010 [id number] / [id number] / Stent Eso Gw 22x70 [id number] - [id number] Implanted:Qty: 1 on 01/21/2008 at [place] [facility] [place] N/A: Esophagus [employer] 04/12/2009 14021-099 / / [id number] Depuy Uniplate 32 Implanted:Qty: 1 on 09/05/2008 at [place] [facility] [place] N/A: Spine Cervical TAMMY & TAMMY DEPUY 1897-02-302 / / Depuy Uniplate Screw 14mm Implanted:Qty: 2 on 09/05/2008 at [place] [facility] [place] N/A: Spine Cervical TAMMY & TAMMY DEPUY 1897--[id number] / / Depuy Lordotic Bengal Cage Implanted:Qty: 1 on 05/07/2010 at [place] [facility] [place] N/A: Neck 1773-06-146 / [id number] / Plate Zach 3 Level Ti 54mm - [id number] Implanted:Qty: 1 on 05/07/2010 at [place] [facility] [place] N/A: Neck JNJ : DEPUY SPINE [id number] / / Screw Zach Const St Ti 14mm - [id number] Implanted:Qty: 4 on 05/07/2010 at [place] [facility] [place] N/A: Neck JNJ : DEPUY SPINE [id number] / / Screw 3.5x14 Mntr Fa [id number] - [id number] Implanted:Qty: 8 on 05/07/2010 at [place] [facility] [place] N/A: Spine Cervical JNJ : [employer] [id number] / / Jarrell [id number] - [id number] Implanted:Qty: 1 on 05/07/2010 at [place] [facility] [place] N/A: Spine Cervical JNJ : [employer] [id number] / / Screw Inner Mntr [id number] - [id number] Implanted:Qty: 8 on 05/07/2010 at [place] [facility] [place] N/A: Spine Cervical JNJ : ETH[employer]ON [employer] [id number] / / Envista Intraocular Lens Implanted:Qty: 1 on 03/10/2022 by Liang Marshall MD at OR [facility] Right: Eye BAUSCH & LOMB 08/13/2023 [id number] / [id number] / [id number] Intraocular Lens Implanted:Qty: 1 on 03/24/2022 by Liang Marshall MD at OR [facility] Left: Eye BAUSCH & LOMB 07/13/2024 [id number] / [id number] / [id number] documented as of this encounter Procedures Procedure Name Priority Date/Time Associated Diagnosis Comments CHEMISTRY-OUTSIDE Routine 07/31/2023 documented in this encounter Results * (ABNORMAL) CHEMISTRY-OUTSIDE (07/31/2023) Not all results display below - see scan for full detail OUTSIDE LAB (SEE SCANNED REPORT) Comment:PH [place]-CBC,GF R,BMP CREATININE-OUTSID E LAB 3.88(A) 0.70 - 1.30 MG/DL OUTSIDE LAB (SEE SCANNED REPORT) EGFR-OUTSIDE LAB 16(A) 60 ML/MIN OUT SIDE LAB (SEE SCANNED REPORT) POTASSIUM-OUTSIDE LAB 3.1(A) 3.5 - 5.1 MMOL OUTSIDE LAB (SEE SCANNED REPORT) GLUCOSE-OUTSIDE LAB 132(A) 70 - 110 MG/DL OUTSIDE LAB (SEE SCANNED REPORT) HOURS FASTING OUTSID E LAB (SEE SCANNED REPORT) TRIGLYCERIDES-OUT SIDE LAB OUTSIDE LAB (SEE SCANNED REPORT) CHOLESTEROL-OUTSI DE LAB OUTSIDE LAB (SEE SCANNED REPORT) HDL-OUTSIDE LAB OUTS VAMSI LAB (SEE SCANNED REPORT) CHOL/HDL RATIO-OUTSIDE LAB OUTSIDE LA B (SEE SCANNED REPORT) LDL (CALCULATED)-OUTS VAMSI LAB OUTSIDE LAB (SEE SCANNED REPORT) LDL (DIRECT MEASURE)-OUTSIDE LAB OUTSIDE LAB (SEE SCANNED REPORT) HEMOGLOBIN, Z4R-[id number] LAB OUTSIDE LAB (SEE SCANNED REPORT) PHOSPHORUS-OUTSID E LAB OUTSIDE LAB (SEE SCANNED REPORT) PTH-OUTSIDE LAB OUTS VAMSI LAB (SEE SCANNED REPORT) MICROALBUMIN RATIO-OUTSIDE LAB OUTSIDE LA B (SEE SCANNED REPORT) PROTEIN, UA-OUTSIDE LAB OUTSIDE LAB (SEE SCANNED REPORT) HGB 10.3(A) 13.5 - 18 GM/DL OUTSIDE LAB (SEE SCANNED REPORT) 07/31/2023 Jhony Aquino DPM LABORATORY OUTSIDE LAB (SEE SCANNED REPORT) documented in this encounter Advance Directives Documents on File Type Date Recorded Patient Physician Office Assistant Expl anation POLST 01/26/2021 [place] [facility]-SU[facility]AINING TREATMENT * No Code (Latest [...] Power of Attor andrew? No Care Teams Drama Teacher Relationship Specialty Start Date End Date Jocelyne Desai DO [address] [place] [address] [place] [phone] PCP - General Internal Medicine 11/09/16 documented as of this encounter
[2023-08-02 07:18] LABS: Hematocrit (blood only) 27.7 % (42.0-52.0); Hemoglobin 9.3 g/dl (14.0-18.0); Mean Corpuscular Hemoglobin 28.2 pg (25.0-34.0); Mean Corpuscular Hgb Conc 33.6 g/dL (32.0-36.0); Mean Corpuscular Volume 83.9 fL (80.0-100.0); Mean Platelet Volume 11.3 fL (9.4-12.4); Platelet Count 142 K/uL (130-400); RDW Coefficient of Variation 14.2 % (11.5-14.5); RDW Standard Deviation 43.6 fL (36.4-46.3); White Blood Count 5.73 K/ul (4.8-10.8)
[2023-08-02 07:39] LABS: BUN Creatinine Ratio 23.5 (10-20); Calcium 8.6 mg/dl (8.6-10.3); Creatinine Clr Calc Pharmacy 19.5 ml/min; Est GFR (African American) 17.9 ml/min; Est GFR (Non-African American) 15.4 ml/min; Magnesium 1.8 mg/dl (1.7-2.4); Phosphorus 4.9 mg/dl (2.5-4.9); Potassium 2.9 mmol/L (3.5-5.1)
[2023-08-02] MEDS: ADVANCED PROBIOTIC 625 MG CAPSULE PO SCH (07:51)
[2023-08-02] MEDS: MAGNESIUM OXIDE 400 MG TAB PO SCH (07:51)
[2023-08-02] MEDS: POTASSIUM CHLORIDE CRTAB 20 MEQ TABCR PO SCH (07:52)
[2023-08-02] MEDS: METOPROLOL SUCC 25MG EXT REL TAB PO SCH (07:52)
[2023-08-02 07:53] LABS: INR 2.8 (0.9-1.1); Prothrombin Time 27.7 Seconds (9.0-12.0)
--- NOTE | 2023-08-02 10:50 | Infectious Disease Consult ---
Date of Service August 02, 2023 Telehealth Information I performed this visit using a real-time telehealth connection between my location and the patients location ([facility]). After connecting through interactive tele-video, patient was identified by name and date of and/or wristband check.Patient (or authorized healthcare motor vehicle representative) was informed that this was a telemedicine visit and it was being conducted confidentially over secure lines. My office door was closed and no one else was present in the room with me.Patient (or authorized healthcare motor vehicle representative) provided consent to proceed with the visit, expressed an understanding of privacy and security of the telemedicine visit, and gave permission to have a hospital motor vehicle representative in the room in order to assist with the visit and to conduct portions of the visit, as needed. I informed the patient (or authorized healthcare motor vehicle representative) that I reviewed their record and presented the opportunity for them to ask any questions regarding the visit today. The patient agreed to participate. Assessment & Plan (1) Infected wound: Plan: Continue zosyn and daptomycin (2) Bacterial infection due to Pseudomonas: Plan: Continue zosyn (3) Hx MRSA infection: Plan: Continue daptomycin Plan Recommend continuing zosyn and daptomycin pending susceptibilities of his wound cultures .Consider MRI of RLE to rule out osteomyelitis History of Present Illness History of Present Illness 73 y/o M PMHx HTN, CAD status post pacemaker, NIDDM diabetes, HLD, BPH and ch ronic RLE wounds Patient being taken care of at [facility] wound care clinic [[phone]] Per patient, his RLE wounds were debrided and cultured and he was started on 5- day course of omadacylcine which he completed 2 days prior to admission .He reports the wound was relatively stable until 1 week prior to admission when he became concerned it was infected Per wound clinic, his wound cultures are growing MRSA and Pseudomonas and gram- negative rods. He was started on daptomycin and Zosyn, Allergies Allergy/AdvReac Type Severity Reaction Status Date / Time No Known Allergies Allergy Verified 08/01/23 09:23 Home Medications Medication Instructions Recorded Confirmed Type pediatric bhjrfqrp-[id number]-acj 1 tab PO PM ##0 04/11/13 08/01/23 History (Ne Complete (iron) chewable tablet) atorvastatin 40 mg tablet 40 mg PO PM #0 tabs 01/08/17 08/01/23 History cholecalciferol (vitamin D3) 25 2,000 unit PO PM 10/18/17 08/01/23 History mcg (1,000 unit) capsule (Vitamin D3) cyanocobalamin (vitamin B-12) 1,000 mcg PO PM 05/06/19 08/01/23 History 1,000 mcg tablet tamsulosin 0.4 mg capsule 0.4 mg PO PM 05/06/19 08/01/23 History magnesium oxide 400 mg PO QAM 09/26/19 08/01/23 History triamcinolone acetonide 0.1 % 1 applic topical BID PRN Rash 08/11/20 08/01/23 History topical cream acetaminophen 500 mg tablet 1,000 mg PO Q6H PRN Pain 12/17/20 08/01/23 History aspirin 81 mg tablet 81 mg PO QPM 12/21/20 08/01/23 History warfarin 3 mg tablet See Rx Instructions .Route .COMPLEX 10/07/22 08/01/23 History cyclobenzaprine 10 mg tablet 10 mg PO Q8H PRN muscle spasm #15 10/16/22 08/01/23 Rx tabs metoprolol succinate 25 mg 25 mg PO QAM #30 tabs 10/16/22 08/01/23 Rx tablet,extended release 24 hr midodrine 2.5 mg tablet 2.5 mg PO TID@0800,1200,1700 #90 06/27/23 08/01/23 Rx tabs oxycodone 5 mg tablet 5 mg PO Q6H PRN pain #20 tabs 06/27/23 08/01/23 Rx torsemide 40 mg tablet (Soaanz) 40 mg PO BID #60 tabs 06/27/23 08/01/23 Rx potassium chloride 20 mEq 20 meq PO QAM 08/01/23 08/01/23 History tablet,extended release(part/cryst) semaglutide 0.25 mg or 0.5 mg (2 0.25 mg subcut WK 08/01/23 08/01/23 History mg/3 mL) subcutaneous pen injector (Ozempic) Patient History Medical History (Updated 08/02/23 @ 12:43 by Marycarmen Vega MD) MRSA infection Hyperlipemia Essential hypertension 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 kidney disease Degenerative cervical spinal stenosis Degenerative lumbar spinal stenosis Proliferative diabetic retinopathy Venous insufficiency of both lower extremities Erectile dysfunction Nonalcoholic 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 (PLATT) 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 of 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 Hyperparathyroidism, secondary renal Esophageal obstruction Complex sleep apnea syndrome Vitamin B12 deficiency Persistent proteinuria Paroxysmal SVT (supraventricular tachycardia) Myocardial Infarction 2018 > medically managed CHF (congestive heart failure) Acute renal failure superimposed on stage 3 chronic kidney disease 08/2020 hospitalization, UTI and osteomyelitis, necrotizing fasciitis Depression Sepsis 2013 Surgical History History of amputation of lesser toe of right foot Hx of angioplasty Amputation toe Right great toe amputation (08/12/20): MAC at [facility] History of esophagogastroduodenoscopy (EGD) History of vascular surgery Left popliteal, EVELINE TPT/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 (10/2019) Right great toe I&D, revision amputation (08/21/20): MAC at [facility] History of hand surgery Tendon transfer Gastric bypass status for obesity Family History Brother Diabetes Mother Diabetes Father Diabetes Other Cancer Hypertension Social History Smoking Status: Former smoker Tobacco Type: Cigarettes Cigarettes Per Day: quit a long time ago; Second Hand Exposure: No; Do You Dip or Chew Tobacco: No; Hx Alcohol Use: No Hx Substance Use: No Preferred Language: Surinamese 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 Ability: Effective Visual Impairment: No Limitations Hearing Ability: Normal De Icer Finisher Required: No Beliefs That Will Affect Care: None marital status: Current Living Situation: Alone Current Living Situation Comment: Daughter lives upstairs. current occupational status: retired How many Children do You have: 2 Feels Safe at Home: Yes Diet Comment: Educated to increase protein, vitamin c, d and zinc Assistive Devices: Bedside Commode, Denture - Upper, Glasses, Hospital Bed, Lift Chair and Walker Results & Data Vital Signs (Past 12 Hours) Vital Signs Temp Pulse Resp BP Pulse Ox O2 Del Method 08/02/23 06:59 36.8 C 62 18 109/66 99 Room Air Laboratory Results No leukocytosis FINDINGS: Bones/joints: There are degenerative changes of the knee and ankle. No acute fracture. No dislocation. Soft tissues: Marked nonspecific subcutaneous edema of the calf without organized fluid collection. Vasculature: Marked atherosclerosis. IMPRESSION: Marked nonspecific subcutaneous edema of the calf without organized fluid collection. Diagnostic Findings Urine Culture Preliminary 08/02/23-0745 Organism 1 Gram negative bacilli [place] Count >100,000 CFU/ml Sens Sensitivities to Follow Gram Stain Final 08/01/23-1036 Gram Stain Result Few Epithelial Cells No WBCs Seen Few Gram Negative Bacilli Rare Gram Positive Cocci Surface Wound Culture Preliminary 08/02/23-0758 Organism 1 Probable Pseudomonas species Quantity Many Sens Sensitivities to Follow
--- NOTE | 2023-08-02 15:23 | Hospitalist Progress Note ---
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 Per wound clinic, his wound culture is growing MRSA and Pseudomonas and gram- negative rods. Follow full reports once that is faxed to our hospital. Start patient on daptomycin and Zosyn, probiotic, hold statin, CPK baseline level. Appreciate wound care consult and recommendation Appreciate ID recommendation-to continue Zosyn and intravenous daptomycin Plan UTI: Patient already on antibiotic, see above. Follow urine culture. Urine culture is growing gram-negative bacilli Has been on intravenous Zosyn Further identification pending Atrial fibrillation: Patient on Coumadin, supratherapeutic INR today, hold Coumadin today. Other chronic medical conditions: HTN, CAD status post pacemaker, NIDDM diabetes, HLD, BPH---- continue with/resume home meds as and when able. DVT prophylaxis: Supratherapeutic INR, Coumadin on hold INR is 2.8 Will continue with the Coumadin Full code Admission and Anticipated Discharge Date Admission Date: August 01, 2023 Subjective 08/02/2023 The patient was seen and examined in medical floor He came in with right leg worsening wound from the wound clinic Wound culture has been growing MRSA as an outpatient and Pseudomonas in the hospital Denies any significant pain No fever and no chills Review of Systems Review of Systems: All systems reviewed and are unremarkable except as noted below Physical Exam Physical Exam: Lying in bed without any acute distress Constitutional: + ill appearing and average body habitus Eyes: PERRL, conjunctivae normal, anicteric sclerae ENMT: external ear and nose normal, oropharynx normal Neck: trachea midline, no thyromegaly Respiratory: no respiratory distress Auscultation: lungs clear to auscultation bilaterally Cardiovascular: Rate/Rhythm: regular rate and regular rhythm; not tachycardic Heart Sounds: normal S1, normal S2 and + murmur Extremities: + edema (Bilateral leg edema with chronic skin changes bilaterally. Right leg ulcer) Gastrointestinal (Abdomen): Inspection/Auscultation: normal bowel sounds; abdomen not distended Percussion/Palpation: abdomen soft; abdomen nontender Musculoskeletal: No acute arthritis involving any of the joints Neurologic: normal touch/pain/proprioception and moves all extremities; no focal motor deficits Lymphatic: no cervical or axillary lymphadenopathy Results & Data Results & Data Vital Signs (Past 12 Hours) Vital Signs Temp Pulse Resp BP Pulse Ox O2 Del Method 08/02/23 14:30 36.8 C 63 16 109/71 99 Room Air 08/02/23 06:59 36.8 C 62 18 109/66 99 Room Air Laboratory Results Short CBC 08/02/23 Range/Units 06:41 WBC 5.73 (4.8-10.8) K/ul Hgb 9.3 L (14.0-18.0) g/dl Hct 27.7 L (42.0-52.0) % Plt Count 142 (130-400) K/uL BMP 08/02/23 06:41 Sodium 136 Potassium 2.9 L Chloride 99 Carbon Dioxide 25 BUN 87 H Creatinine 3.71 H Glucose 100 H Calcium 8.6 Medications Administered Current Inpatient Medications Acetaminophen (Acetaminophen 325 Mg Tab) 650 mg PO Q4H PRN PRN Reason: Pain or Fever Stop: 08/31/23 10:45 Al Hydrox/Mg Hydrox/Simethicone (Aluminum/Magnesium Susp 30 Ml Udc) 15 ml PO Q4H PRN PRN Reason: Dyspepsia Stop: 08/31/23 10:45 Aspirin (Aspirin 81 Mg Ectab) 81 mg PO QPM COOKIE Stop: 08/31/23 20:59 Last Admin: 08/01/23 20:56 Dose: 81 mg Cyanocobalamin (Cyanocobalamin (B-12) 500 Mcg Tablet) 1,000 mcg PO PM COOKIE Stop: 08/31/23 20:59 Last Admin: 08/01/23 20:56 Dose: 1,000 mcg Cyclobenzaprine HCl (Cyclobenzaprine Hcl 10 Mg Tab) 10 mg PO Q8H PRN PRN Reason: muscle spasm Stop: 08/31/23 11:05 Dextrose (Dextrose 50% 50 Ml Syringe) 25 - 50 ml IV UD PRN; Protocol PRN Reason: Hypoglycemia Protocol Stop: 08/31/23 11:07 Glucagon (Glucagon For Inj 1 Mg Vial) 1 mg SQ UD PRN; Protocol PRN Reason: Hypoglycemia Protocol Stop: 08/31/23 11:07 Glucose (Glucose 40% Gel 15 Gm Tube) 15 - 30 gm PO UD PRN; Protocol PRN Reason: Hypoglycemia Protocol Stop: 08/31/23 11:07 Glucose (Glucose 10 Tab/Tube) 4 - 8 tab PO UD PRN; Protocol PRN Reason: Hypoglycemia Treatment Stop: 08/31/23 11:07 Daptomycin 300 mg/ Syringe 6 mls @ 3 mls/min IV Q48H COOKIE; Protocol Stop: 08/08/23 09:44 Last Admin: 08/01/23 11:00 Dose: 3 mls/min Piperacillin Sod/Tazobactam (Sod 4.5 gm/ Dextrose) 100 mls @ 25 mls/hr IV Q12H COOKIE; Protocol Stop: 08/08/23 19:59 Last Infusion: 08/02/23 12:14 Dose: Infused Insulin Aspart (Insulin Aspart Per Unit Charge) 0 units SC ACHS COOKIE Stop: 08/31/23 11:29 Last Admin: 08/02/23 12:13 Dose: Not Given Lactobacillus Acidophilus (Advanced Probiotic 625 Mg Capsule) 1,250 mg PO DAILY COOKIE Stop: 09/01/23 08:59 Last Admin: 08/02/23 07:51 Dose: 1,250 mg Magnesium Hydroxide (Magnesium Hydroxide Susp 30 Ml Udc) 30 ml PO Q12H PRN PRN Reason: Constipation Stop: 08/31/23 10:45 Magnesium Oxide (Magnesium Oxide 400 Mg Tab) 400 mg PO QAM COOKIE Stop: 09/01/23 08:59 Last Admin: 08/02/23 07:51 Dose: 400 mg Metoprolol Succinate (Metoprolol Succ 25mg Ext Rel Tab) 25 mg PO QAM COOKIE Stop: 09/01/23 08:59 Last Admin: 08/02/23 07:52 Dose: 25 mg Midodrine (Midodrine Hcl 2.5 Mg Tab) 2.5 mg PO TID@0800,1200,1700 COOKIE Stop: 08/31/23 13:44 Last Admin: 08/02/23 12:14 Dose: 2.5 mg Miscellaneous (Carbohydrates For Hypoglycemia ) 15 - 30 gm PO UD PRN PRN Reason: Hypoglycemia Protocol Stop: 08/31/23 11:07 Multivitamins/Folic Acid/Vitamin C (Multivitamin Chewable Tab) 1 tab PO PM COOKIE Stop: 08/31/23 20:59 Last Admin: 08/01/23 20:57 Dose: 1 tab Oxycodone HCl (Oxycodone Hcl Ir 5 Mg Tab (Immediate Release)) 5 mg PO Q6H PRN PRN Reason: pain Stop: 08/15/23 11:05 Potassium Chloride (Potassium Chloride Crtab 20 Meq Tabcr) 20 meq PO QAM COOKIE Stop: 09/01/23 08:59 Last Admin: 08/02/23 07:52 Dose: 20 meq Tamsulosin HCl (Tamsulosin Hcl 0.4 Mg Cap) 0.4 mg PO PM COOKIE Stop: 08/31/23 20:59 Last Admin: 08/01/23 20:56 Dose: 0.4 mg Torsemide (Torsemide 20 Mg Tab) 40 mg PO BID COOKIE Stop: 08/31/23 20:59 Last Admin: 08/02/23 07:51 Dose: 40 mg Vitamin D (Cholecalciferol 25 Mcg (1000 Units) Tab) 50 mcg PO PM COOKIE Stop: 08/31/23 20:59 Last Admin: 08/01/23 20:56 Dose: 50 mcg
[2023-08-02] MEDS: ACETAMINOPHEN 325 MG TAB PO PRN (16:32)
[2023-08-02] MEDS: TORSEMIDE 20 MG TAB PO SCH (16:33)
[2023-08-02] MEDS: WARFARIN SOD 0.5 MG TAB PO SCH (16:33)
[2023-08-02] MEDS: WARFARIN SOD 1 MG TAB PO SCH (16:33)
[2023-08-03 07:51] LABS: Basophils # (auto) 0.01 K/uL (0.00-0.20); Basophils % (auto) 0.2 %; Eosinophils # (auto) 0.26 K/uL (0.00-0.50); Eosinophils % (auto) 5.8 %; Hematocrit (blood only) 29.1 % (42.0-52.0); Hemoglobin 9.6 g/dl (14.0-18.0); Immature Granulocytes # (auto) 0.01 K/uL (0.01-0.20); Immature Granulocytes % (auto) 0.2 %; Lymphocytes # (auto) 0.67 K/uL (1.20-3.40); Mean Corpuscular Volume 84.8 fL (80.0-100.0); Mean Platelet Volume 10.7 fL (9.4-12.4); Monocytes # (auto) 0.34 K/uL (0.11-0.59); Monocytes % (auto) 7.6 %; Neutrophils # (auto) 3.17 K/uL (1.40-6.50); Neutrophils % (auto) 71.2 %; Platelet Count 153 K/uL (130-400); RDW Coefficient of Variation 14.3 % (11.5-14.5); RDW Standard Deviation 44.2 fL (36.4-46.3); Red Blood Count 3.43 M/uL (4.70-6.10); White Blood Count 4.46 K/ul (4.8-10.8)
[2023-08-03 08:10] LABS: BUN Creatinine Ratio 21.4 (10-20); Calcium 8.7 mg/dl (8.6-10.3); Creatinine Clr Calc Pharmacy 18.6 ml/min; Est GFR (Non-African American) 14.6 ml/min; Potassium 3.2 mmol/L (3.5-5.1)
[2023-08-03 08:22] LABS: INR 2.7 (0.9-1.1); Prothrombin Time 27.1 Seconds (9.0-12.0)
--- NOTE | 2023-08-03 15:43 | Hospitalist Progress Note ---
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 Per wound clinic, his wound culture is growing MRSA and Pseudomonas and gram- negative rods. Follow full reports once that is faxed to our hospital. Start patient on daptomycin and Zosyn, probiotic, hold statin, CPK baseline level. Appreciate wound care consult and recommendation Appreciate ID recommendation-to continue Zosyn and intravenous daptomycin The pacemaker is not compatible with MRI CT scan of the leg has been ordered to rule out possibility of osteomyelitis Will discuss with ID for duration of antibiotic tomorrow Patient remains stable to be discharged Plan UTI: Patient already on antibiotic, see above. Follow urine culture. Urine culture is growing gram-negative bacilli Has been on intravenous Zosyn Urine is growing Klebsiella pneumonia which is pansensitive Chronic atrial fibrillation: Patient on Coumadin, supratherapeutic INR today, hold Coumadin today. Coumadin restarted Rate remains controlled Other chronic medical conditions: HTN, CAD status post pacemaker, NIDDM diabetes, HLD, BPH---- continue with/resume home meds as and when able. DVT prophylaxis: Supratherapeutic INR, Coumadin on hold INR is 2.8 Will continue with the Coumadin Full code Admission and Anticipated Discharge Date Admission Date: August 01, 2023 Subjective 08/02/2023 The patient was seen and examined in medical floor He came in with right leg worsening wound from the wound clinic Wound culture has been growing MRSA as an outpatient and Pseudomonas in the hospital Denies any significant pain No fever and no chills 08/03/2023 The patient was seen and examined in medical floor He has been feeling much better Leg swelling has improved Denies any fever and or chills Review of Systems Review of Systems: All systems reviewed and are unremarkable except as noted below Physical Exam Physical Exam: Lying in bed without any acute distress Constitutional: + ill appearing and average body habitus Eyes: PERRL, conjunctivae normal, anicteric sclerae ENMT: external ear and nose normal, oropharynx normal Neck: trachea midline, no thyromegaly Respiratory: no respiratory distress Auscultation: lungs clear to auscultation bilaterally Cardiovascular: Rate/Rhythm: regular rate and regular rhythm; not tachycardic Heart Sounds: normal S1, normal S2 and + murmur Extremities: + edema (Bilateral leg edema with chronic skin changes bilaterally. Right leg ulcer) Gastrointestinal (Abdomen): Inspection/Auscultation: normal bowel sounds; abdomen not distended Percussion/Palpation: abdomen soft; abdomen nontender Musculoskeletal: No acute arthritis involving any of the joint Neurologic: normal touch/pain/proprioception and moves all extremities; no focal motor deficits Psychiatric: A+Ox3, euthymic affect Lymphatic: no cervical or axillary lymphadenopathy Results & Data Results & Data Vital Signs (Past 12 Hours) Vital Signs Temp Pulse Resp BP Pulse Ox O2 Del Method 08/03/23 15:01 36.8 C 60 18 102/72 99 Room Air 08/03/23 07:23 36.7 C 65 18 103/63 99 Room Air Laboratory Results Short CBC 08/03/23 Range/Units 07:05 WBC 4.46 L (4.8-10.8) K/ul Hgb 9.6 L (14.0-18.0) g/dl Hct 29.1 L (42.0-52.0) % Plt Count 153 (130-400) K/uL BMP 08/03/23 07:05 Sodium 136 Potassium 3.2 L Chloride 99 Carbon Dioxide 28 BUN 83 H Creatinine 3.88 H Glucose 108 H Calcium 8.7 Medications Administered Current Inpatient Medications Acetaminophen (Acetaminophen 325 Mg Tab) 650 mg PO Q4H PRN PRN Reason: Pain or Fever Stop: 08/31/23 10:45 Last Admin: 08/02/23 16:32 Dose: 650 mg Al Hydrox/Mg Hydrox/Simethicone (Aluminum/Magnesium Susp 30 Ml Udc) 15 ml PO Q4H PRN PRN Reason: Dyspepsia Stop: 08/31/23 10:45 Aspirin (Aspirin 81 Mg Ectab) 81 mg PO QPM [facility] Stop: 08/31/23 20:59 Last Admin: 08/02/23 20:34 Dose: 81 mg Cyanocobalamin (Cyanocobalamin (B-12) 500 Mcg Tablet) 1,000 mcg PO PM [facility] Stop: 08/31/23 20:59 Last Admin: 08/02/23 20:33 Dose: 1,000 mcg Cyclobenzaprine HCl (Cyclobenzaprine Hcl 10 Mg Tab) 10 mg PO Q8H PRN PRN Reason: muscle spasm Stop: 08/31/23 11:05 Dextrose (Dextrose 50% 50 Ml Syringe) 25 - 50 ml IV UD PRN; Protocol PRN Reason: Hypoglycemia Protocol Stop: 08/31/23 11:07 Glucagon (Glucagon For Inj 1 Mg Vial) 1 mg SQ UD PRN; Protocol PRN Reason: Hypoglycemia Protocol Stop: 08/31/23 11:07 Glucose (Glucose 40% Gel 15 Gm Tube) 15 - 30 gm PO UD PRN; Protocol PRN Reason: Hypoglycemia Protocol Stop: 08/31/23 11:07 Glucose (Glucose 10 Tab/Tube) 4 - 8 tab PO UD PRN; Protocol PRN Reason: Hypoglycemia Treatment Stop: 08/31/23 11:07 Daptomycin 300 mg/ Syringe 6 mls @ 3 mls/min IV Q48H [facility]; Protocol Stop: 08/08/23 09:44 Last Admin: 08/03/23 11:05 Dose: 3 mls/min Piperacillin Sod/Tazobactam (Sod 4.5 gm/ Dextrose) 100 mls @ 25 mls/hr IV Q12H [facility]; Protocol Stop: 08/08/23 19:59 Last Infusion: 08/03/23 13:29 Dose: Infused Insulin Aspart (Insulin Aspart Per Unit Charge) 0 units SC ACHS [facility] Stop: 08/31/23 11:29 Last Admin: 08/03/23 12:27 Dose: Not Given Lactobacillus Acidophilus (Advanced Probiotic 625 Mg Capsule) 1,250 mg PO DAILY [facility] Stop: 09/01/23 08:59 Last Admin: 08/03/23 08:23 Dose: 1,250 mg Magnesium Hydroxide (Magnesium Hydroxide Susp 30 Ml Udc) 30 ml PO Q12H PRN PRN Reason: Constipation Stop: 08/31/23 10:45 Magnesium Oxide (Magnesium Oxide 400 Mg Tab) 400 mg PO QAM [facility] Stop: 09/01/23 08:59 Last Admin: 08/03/23 08:23 Dose: 400 mg Metoprolol Succinate (Metoprolol Succ 25mg Ext Rel Tab) 25 mg PO QAM [facility] Stop: 09/01/23 08:59 Last Admin: 08/03/23 08:23 Dose: 25 mg Midodrine (Midodrine Hcl 2.5 Mg Tab) 2.5 mg PO TID@0800,1200,1700 [facility] Stop: 08/31/23 13:44 Last Admin: 08/03/23 12:02 Dose: 2.5 mg Miscellaneous (Carbohydrates For Hypoglycemia ) 15 - 30 gm PO UD PRN PRN Reason: Hypoglycemia Protocol Stop: 08/31/23 11:07 Multivitamins/Folic Acid/Vitamin C (Multivitamin Chewable Tab) 1 tab PO PM [facility] Stop: 08/31/23 20:59 Last Admin: 08/02/23 20:33 Dose: 1 tab Oxycodone HCl (Oxycodone Hcl Ir 5 Mg Tab (Immediate Release)) 5 mg PO Q6H PRN PRN Reason: pain Stop: 08/15/23 11:05 Potassium Chloride (Potassium Chloride Crtab 20 Meq Tabcr) 20 meq PO QAM [facility] Stop: 09/01/23 08:59 Last Admin: 08/03/23 08:27 Dose: 20 meq Tamsulosin HCl (Tamsulosin Hcl 0.4 Mg Cap) 0.4 mg PO PM [facility] Stop: 08/31/23 20:59 Last Admin: 08/02/23 20:33 Dose: 0.4 mg Torsemide (Torsemide 20 Mg Tab) 40 mg PO BID17 [facility] Stop: 08/31/23 20:59 Last Admin: 08/03/23 08:23 Dose: 40 mg Vitamin D (Cholecalciferol 25 Mcg (1000 Units) Tab) 50 mcg PO PM [facility] Stop: 08/31/23 20:59 Last Admin: 08/02/23 20:33 Dose: 50 mcg Warfarin Sodium (Warfarin Sod 3 Mg Tab) 3 mg PO SuTuTh@1600 [facility] Stop: 09/02/23 15:59 Warfarin Sodium (Warfarin Sod 1 Mg Tab) 1 mg PO MoWeFrSa@1600 [facility] Stop: 09/01/23 16:29 Last Admin: 08/02/23 16:33 Dose: 1 mg Warfarin Sodium (Warfarin Sod 0.5 Mg Tab) 0.5 mg PO MoWeFrSa@1600 [facility] Stop: 09/01/23 16:29 Last Admin: 08/02/23 16:33 Dose: 0.5 mg
--- NOTE | 2023-08-03 16:17 | CT Scan Report ---
CT SCAN OF THE RIGHT TIBIA AND FIBULA WITHOUT IV CONTRAST CLINICAL HISTORY: Right leg infection. COMPARISON STUDY: CT scan of the right tibia and fibula dated 06/16/2023. TECHNIQUE: CT scan of the right tibia and fibula is performed from the distal femur to the ankle. Fe ges are reviewed in the axial, sagittal, and coronal planes. IV contrast was administered without com plication. A dose lowering technique was utilized adhering to the principles of ALARA. Note that inte rpretation is suboptimal without plain film correlate. CT DOSE: 1348.22 mGy.cm FINDINGS: The skeletal structures are osteopenic. There is no evidence of tibial or fibular fracture. No bony erosion is seen. Benign-appearing periostitis is seen along the distal tibial and fibular sh afts. The knee and ankle joints are grossly preserved. There is a small knee joint effusion. Advanced atherosclerotic calcification is observed in the regional arteries. There are large dorsal and plant ar heel spurs. Advanced arthritic change is noted in the partially imaged foot. Stents are seen in th e distal popliteal artery, as well as the tibioperoneal trunk and the anterior tibial arteries. Diffu se subcutaneous soft tissue edema and subcutaneous fluid is seen throughout the left lower extremity. A large wound is seen in the medial aspect of the [id number] calf on axial image #210. There is n o rest fluid collection seen to suggest abscess on this unenhanced examination. No soft tissue gas is identified throughout the right leg. The Achilles tendon is intact as visualized. IMPRESSION: 1. No acute bony abnormality is seen involving the right tibia or fibula. 2. Diffuse soft tissue edema and subcutaneous fluid is seen throughout the right leg suggesting cellu litis. Correlate clinically. 3. A large wound/ulceration is seen within the medial aspect of the mid to distal calf. 4. There is no evidence of organized/drainable fluid collection to suggest abscess on this unenhanced examination. 5. Knee joint effusion. ACT 112: Negative or not required by law. Dictated: 08/03/2023 2:49 PM Transcribed: 08/03/2023 3:03 PM Isaiah [id number] [email or web address] Electronically signed by: River Castillo M.D. 08/03/2023 4:15 PM
[2023-08-03] MEDS: WARFARIN SOD 3 MG TAB PO SCH (17:08)
[2023-08-04 07:47] LABS: INR 2.7 (0.9-1.1); Prothrombin Time 27.1 Seconds (9.0-12.0)
[2023-08-04] MEDS: CEFEPIME 2,000 MG in SYRINGE 0 ML IV ONE (15:15)
--- NOTE | 2023-08-04 16:32 | Hospitalist Progress Note ---
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 Per wound clinic, his wound culture is growing MRSA and Pseudomonas and gram- negative rods. Follow full reports once that is faxed to our hospital. Start patient on daptomycin and Zosyn, probiotic, hold statin, CPK baseline level. Appreciate wound care consult and recommendation Appreciate ID recommendation-to continue Zosyn and intravenous daptomycin The pacemaker is not compatible with MRI CT scan of the leg has been ordered to rule out possibility of osteomyelitis Will discuss with ID for duration of antibiotic tomorrow Patient remains stable to be discharged Discussed with the ID specialist Final culture grew Pseudomonas aeruginosa sensitive to cefepime. Culture and sensitivities were reviewed from outpatient studies as well. CT scan did not show any abscess and/or osteomyelitis-MRI scan was not being able to done Recommendation was given to continue with intravenous cefepime for a total of 7 to 14 days Patient will have ultrasound-guided line He received cefepime 2 g today Will have 1 g cefepime twice daily from tomorrow given the renal function Likely discharge tomorrow Plan UTI: Patient already on antibiotic, see above. Follow urine culture. Urine culture is growing gram-negative bacilli Has been on intravenous Zosyn Urine is growing Klebsiella pneumonia which is pansensitive Chronic atrial fibrillation: Patient on Coumadin, supratherapeutic INR today, hold Coumadin today. Coumadin restarted Rate remains controlled Other chronic medical conditions: End-stage renal disease not on dialysis Chronic diastolic heart failure-asymptomatic and not in any evidence of fluid overload HTN, CAD status post pacemaker, NIDDM diabetes, HLD, BPH---- continue with/resume home meds as and when able. DVT prophylaxis: Supratherapeutic INR, Coumadin on hold INR is 2.8 Will continue with the Coumadin Full code Admission and Anticipated Discharge Date Admission Date: August 01, 2023 Subjective 08/02/2023 The patient was seen and examined in medical floor He came in with right leg worsening wound from the wound clinic Wound culture has been growing MRSA as an outpatient and Pseudomonas in the hospital Denies any significant pain No fever and no chills 08/03/2023 The patient was seen and examined in medical floor He has been feeling much better Leg swelling has improved Denies any fever and or chills 08/04/2023 The patient was seen and examined in medical floor He has been stable Denies any fever and or chills Leg swelling is better Review of Systems Review of Systems: All systems reviewed and are unremarkable except as noted below Physical Exam Physical Exam: Lying in bed without any acute distress Constitutional: average body habitus; not ill appearing Eyes: PERRL, conjunctivae normal, anicteric sclerae ENMT: external ear and nose normal, oropharynx normal Neck: trachea midline, no thyromegaly Respiratory: no respiratory distress Auscultation: lungs clear to auscultation bilaterally Cardiovascular: Rate/Rhythm: regular rate and regular rhythm; not tachycardic Heart Sounds: normal S1, normal S2 and + murmur Extremities: + edema (Bilateral leg edema with chronic skin changes bilaterally. Right leg ulcer) Gastrointestinal (Abdomen): Inspection/Auscultation: normal bowel sounds; abdomen not distended Percussion/Palpation: abdomen soft; abdomen nontender Musculoskeletal: No acute arthritis involving any of the joint Neurologic: normal touch/pain/proprioception and moves all extremities; no focal motor deficits Psychiatric: A+Ox3, euthymic affect Lymphatic: no cervical or axillary lymphadenopathy Results & Data Results & Data Vital Signs (Past 12 Hours) Vital Signs Temp Pulse Resp BP BP Pulse Ox O2 Del Method 08/04/23 14:26 36.8 C 59 L 16 103/65 99 Room Air 08/04/23 07:42 36.4 C L 62 18 113/74 99 Room Air
[2023-08-05] MEDS: CEFEPIME 1,000 MG in SYRINGE 0 ML IV SCH (12:53)
--- NOTE | 2023-08-05 14:38 | Hospitalist Progress Note ---
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 Per wound clinic, his wound culture is growing MRSA and Pseudomonas and gram- negative rods. Follow full reports once that is faxed to our hospital. Start patient on daptomycin and Zosyn, probiotic, hold statin, CPK baseline level. Appreciate wound care consult and recommendation Appreciate ID recommendation-to continue Zosyn and intravenous daptomycin The pacemaker is not compatible with MRI CT scan of the leg has been ordered to rule out possibility of osteomyelitis Will discuss with ID for duration of antibiotic tomorrow Patient remains stable to be discharged He will have follow-up appointments with outpatient wound care Discussed with the ID specialist Final culture grew Pseudomonas aeruginosa sensitive to cefepime. Culture and sensitivities were reviewed from outpatient studies as well. CT scan did not show any abscess and/or osteomyelitis-MRI scan was not being able to done Recommendation was given to continue with intravenous cefepime for a total of 7 to 14 days Patient will have ultrasound-guided line He received cefepime 2 g today Will have 1 g cefepime twice daily from tomorrow given the renal function Cannot have cefepime intravenously twice a day at home as was planned yesterday He will get intravenous medications while in the hospital and likely discharge on Monday He will come to [facility] for the next 5 or 6 days to finish the course of intravenous cefepime Plan UTI: Patient already on antibiotic, see above. Follow urine culture. Urine culture is growing gram-negative bacilli Has been on intravenous Zosyn Urine is growing Klebsiella pneumonia which is pansensitive IV cefepime will be covering Klebsiella pneumonia as well Chronic atrial fibrillation: Patient on Coumadin, supratherapeutic INR today, hold Coumadin today. Coumadin restarted Rate remains controlled Other chronic medical conditions: End-stage renal disease not on dialysis Chronic diastolic heart failure-asymptomatic and not in any evidence of fluid overload HTN, CAD status post pacemaker, NIDDM diabetes, HLD, BPH---- continue with/resume home meds as and when able. DVT prophylaxis: Supratherapeutic INR, Coumadin on hold INR is 2.8 Will continue with the Coumadin Full code Admission and Anticipated Discharge Date Admission Date: August 01, 2023 Subjective 08/02/2023 The patient was seen and examined in medical floor He came in with right leg worsening wound from the wound clinic Wound culture has been growing MRSA as an outpatient and Pseudomonas in the hospital Denies any significant pain No fever and no chills 08/03/2023 The patient was seen and examined in medical floor He has been feeling much better Leg swelling has improved Denies any fever and or chills 08/04/2023 The patient was seen and examined in medical floor He has been stable Denies any fever and or chills Leg swelling is better 08/05/2023 The patient was seen and examined in medical floor He has been stable Denies any pain in the right leg No fever and or chills Review of Systems Review of Systems: All systems reviewed and are unremarkable except as noted below Physical Exam Physical Exam: Lying in bed without any acute distress Constitutional: average body habitus; not ill appearing Eyes: PERRL, conjunctivae normal, anicteric sclerae ENMT: external ear and nose normal, oropharynx normal Neck: trachea midline, no thyromegaly Respiratory: no respiratory distress Auscultation: lungs clear to auscultation bilaterally Cardiovascular: Rate/Rhythm: regular rate and regular rhythm; not tachycardic Heart Sounds: normal S1, normal S2 and + murmur Extremities: + edema (Bilateral leg edema with chronic skin changes bilaterally. Right leg ulcer) Gastrointestinal (Abdomen): Inspection/Auscultation: normal bowel sounds; abdomen not distended Percussion/Palpation: abdomen soft; abdomen nontender Neurologic: normal touch/pain/proprioception and moves all extremities; no focal motor deficits Psychiatric: A+Ox3, euthymic affect Lymphatic: no cervical or axillary lymphadenopathy Results & Data Results & Data Vital Signs (Past 12 Hours) Vital Signs Temp Pulse Resp BP Pulse Ox O2 Del Method 08/05/23 08:15 37.0 C 63 15 111/72 99 Room Air Medications Administered Current Inpatient Medications Acetaminophen (Acetaminophen 325 Mg Tab) 650 mg PO Q4H PRN PRN Reason: Pain or Fever Stop: 08/31/23 10:45 Last Admin: 08/03/23 21:55 Dose: 650 mg Al Hydrox/Mg Hydrox/Simethicone (Aluminum/Magnesium Susp 30 Ml Udc) 15 ml PO Q4H PRN PRN Reason: Dyspepsia Stop: 08/31/23 10:45 Aspirin (Aspirin 81 Mg Ectab) 81 mg PO QPM [facility] Stop: 08/31/23 20:59 Last Admin: 08/04/23 20:11 Dose: 81 mg Cyanocobalamin (Cyanocobalamin (B-12) 500 Mcg Tablet) 1,000 mcg PO PM [facility] Stop: 08/31/23 20:59 Last Admin: 08/04/23 20:11 Dose: 1,000 mcg Cyclobenzaprine HCl (Cyclobenzaprine Hcl 10 Mg Tab) 10 mg PO Q8H PRN PRN Reason: muscle spasm Stop: 08/31/23 11:05 Dextrose (Dextrose 50% 50 Ml Syringe) 25 - 50 ml IV UD PRN; Protocol PRN Reason: Hypoglycemia Protocol Stop: 08/31/23 11:07 Glucagon (Glucagon For Inj 1 Mg Vial) 1 mg SQ UD PRN; Protocol PRN Reason: Hypoglycemia Protocol Stop: 08/31/23 11:07 Glucose (Glucose 40% Gel 15 Gm Tube) 15 - 30 gm PO UD PRN; Protocol PRN Reason: Hypoglycemia Protocol Stop: 08/31/23 11:07 Glucose (Glucose 10 Tab/Tube) 4 - 8 tab PO UD PRN; Protocol PRN Reason: Hypoglycemia Treatment Stop: 08/31/23 11:07 Cefepime HCl 1,000 mg/ Syringe 10 mls @ 5 mls/min IV Q12H [facility]; Protocol Stop: 08/12/23 11:59 Last Admin: 08/05/23 12:53 Dose: 5 mls/min Insulin Aspart (Insulin Aspart Per Unit Charge) 0 units SC ACHS [facility] Stop: 08/31/23 11:29 Last Admin: 08/05/23 13:15 Dose: Not Given Lactobacillus Acidophilus (Advanced Probiotic 625 Mg Capsule) 1,250 mg PO DAILY [facility] Stop: 09/01/23 08:59 Last Admin: 08/05/23 08:13 Dose: 1,250 mg Magnesium Hydroxide (Magnesium Hydroxide Susp 30 Ml Udc) 30 ml PO Q12H PRN PRN Reason: Constipation Stop: 08/31/23 10:45 Magnesium Oxide (Magnesium Oxide 400 Mg Tab) 400 mg PO QAM [facility] Stop: 09/01/23 08:59 Last Admin: 08/05/23 08:13 Dose: 400 mg Metoprolol Succinate (Metoprolol Succ 25mg Ext Rel Tab) 25 mg PO QAM [facility] Stop: 09/01/23 08:59 Last Admin: 08/05/23 08:14 Dose: 25 mg Midodrine (Midodrine Hcl 2.5 Mg Tab) 2.5 mg PO TID@0800,1200,1700 [facility] Stop: 08/31/23 13:44 Last Admin: 08/05/23 12:53 Dose: 2.5 mg Miscellaneous (Carbohydrates For Hypoglycemia ) 15 - 30 gm PO UD PRN PRN Reason: Hypoglycemia Protocol Stop: 08/31/23 11:07 Multivitamins/Folic Acid/Vitamin C (Multivitamin Chewable Tab) 1 tab PO PM [facility] Stop: 08/31/23 20:59 Last Admin: 08/04/23 20:10 Dose: 1 tab Oxycodone HCl (Oxycodone Hcl Ir 5 Mg Tab (Immediate Release)) 5 mg PO Q6H PRN PRN Reason: pain Stop: 08/15/23 11:05 Potassium Chloride (Potassium Chloride Crtab 20 Meq Tabcr) 20 meq PO QAM [facility] Stop: 09/01/23 08:59 Last Admin: 08/05/23 08:13 Dose: 20 meq Tamsulosin HCl (Tamsulosin Hcl 0.4 Mg Cap) 0.4 mg PO PM [facility] Stop: 08/31/23 20:59 Last Admin: 08/04/23 20:11 Dose: 0.4 mg Torsemide (Torsemide 20 Mg Tab) 40 mg PO BID17 [facility] Stop: 08/31/23 20:59 Last Admin: 08/05/23 08:14 Dose: 40 mg Vitamin D (Cholecalciferol 25 Mcg (1000 Units) Tab) 50 mcg PO PM [facility] Stop: 08/31/23 20:59 Last Admin: 08/04/23 20:10 Dose: 50 mcg Warfarin Sodium (Warfarin Sod 3 Mg Tab) 3 mg PO SuTuTh@1600 [facility] Stop: 09/02/23 15:59 Last Admin: 08/03/23 17:08 Dose: 3 mg Warfarin Sodium (Warfarin Sod 1 Mg Tab) 1 mg PO MoWeFrSa@1600 [facility] Stop: 09/01/23 16:29 Last Admin: 08/04/23 16:56 Dose: 1 mg Warfarin Sodium (Warfarin Sod 0.5 Mg Tab) 0.5 mg PO Vishal@1600 [facility] Stop: 09/01/23 16:29 Last Admin: 08/04/23 16:56 Dose: 0.5 mg
[2023-08-06 06:29] LABS: Creatinine Clr Calc Pharmacy 21.5 ml/min; Est GFR (African American) 20.2 ml/min; Est GFR (Non-African American) 17.4 ml/min
--- NOTE | 2023-08-06 15:00 | Hospitalist Progress Note ---
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 Per wound clinic, his wound culture is growing MRSA and Pseudomonas and gram- negative rods. Follow full reports once that is faxed to our hospital. Start patient on daptomycin and Zosyn, probiotic, hold statin, CPK baseline level. Appreciate wound care consult and recommendation Appreciate ID recommendation-to continue Zosyn and intravenous daptomycin The pacemaker is not compatible with MRI CT scan of the leg has been ordered to rule out possibility of osteomyelitis Will discuss with ID for duration of antibiotic tomorrow Patient remains stable to be discharged He will have follow-up appointments with outpatient wound care Likely discharge tomorrow Discussed with the ID specialist Final culture grew Pseudomonas aeruginosa sensitive to cefepime. Culture and sensitivities were reviewed from outpatient studies as well. CT scan did not show any abscess and/or osteomyelitis-MRI scan was not being able to done Recommendation was given to continue with intravenous cefepime for a total of 7 to 14 days Patient will have ultrasound-guided line He received cefepime 2 g today Will have 1 g cefepime twice daily from tomorrow given the renal function Cannot have cefepime intravenously twice a day at home as was planned yesterday He will get intravenous medications while in the hospital and likely discharge on Monday He will come to [facility] for the next 5 or 6 days to finish the course of intravenous cefepime Will arrange for [facility] scheduled to finish the course of intravenous antibiotic Plan UTI: Patient already on antibiotic, see above. Follow urine culture. Urine culture is growing gram-negative bacilli Has been on intravenous Zosyn Urine is growing Klebsiella pneumonia which is pansensitive IV cefepime will be covering Klebsiella pneumonia as well Chronic atrial fibrillation: Patient on Coumadin, supratherapeutic INR today, hold Coumadin today. Coumadin restarted Rate remains controlled Other chronic medical conditions: End-stage renal disease not on dialysis Chronic diastolic heart failure-asymptomatic and not in any evidence of fluid overload HTN, CAD status post pacemaker, NIDDM diabetes, HLD, BPH---- continue with/resume home meds as and when able. DVT prophylaxis: Supratherapeutic INR, Coumadin on hold INR is 2.8 Will continue with the Coumadin Full code Admission and Anticipated Discharge Date Admission Date: August 01, 2023 Subjective 08/02/2023 The patient was seen and examined in medical floor He came in with right leg worsening wound from the wound clinic Wound culture has been growing MRSA as an outpatient and Pseudomonas in the hospital Denies any significant pain No fever and no chills 08/03/2023 The patient was seen and examined in medical floor He has been feeling much better Leg swelling has improved Denies any fever and or chills 08/04/2023 The patient was seen and examined in medical floor He has been stable Denies any fever and or chills Leg swelling is better 08/05/2023 The patient was seen and examined in medical floor He has been stable Denies any pain in the right leg No fever and or chills 08/06/2023 The patient was seen and examined in medical floor He has been stable Discharge tomorrow with MTU arrangements for intravenous antibiotic to finish the course Review of Systems Review of Systems: All systems reviewed and are unremarkable except as noted below Physical Exam Physical Exam: Lying in bed without any acute distress Constitutional: average body habitus; not ill appearing Eyes: PERRL, conjunctivae normal, anicteric sclerae ENMT: external ear and nose normal, oropharynx normal Neck: trachea midline, no thyromegaly Respiratory: no respiratory distress Auscultation: lungs clear to auscultation bilaterally Cardiovascular: Rate/Rhythm: regular rate and regular rhythm; not tachycardic Heart Sounds: normal S1, normal S2 and + murmur Extremities: + edema (Bilateral leg edema with chronic skin changes bilaterally. Right leg ulcer) Gastrointestinal (Abdomen): Inspection/Auscultation: normal bowel sounds; abdomen not distended Percussion/Palpation: abdomen soft; abdomen nontender Neurologic: normal touch/pain/proprioception and moves all extremities; no focal motor deficits Psychiatric: A+Ox3, euthymic affect Lymphatic: no cervical or axillary lymphadenopathy Results & Data Results & Data Vital Signs (Past 12 Hours) Vital Signs Temp Pulse Resp BP Pulse Ox O2 Del Method 08/06/23 14:51 36.5 C 75 16 113/76 99 Room Air 08/06/23 07:23 36.8 C 70 16 126/78 97 Room Air Medications Administered Current Inpatient Medications Acetaminophen (Acetaminophen 325 Mg Tab) 650 mg PO Q4H PRN PRN Reason: Pain or Fever Stop: 08/31/23 10:45 Last Admin: 08/06/23 00:29 Dose: 650 mg Al Hydrox/Mg Hydrox/Simethicone (Aluminum/Magnesium Susp 30 Ml Udc) 15 ml PO Q4H PRN PRN Reason: Dyspepsia Stop: 08/31/23 10:45 Aspirin (Aspirin 81 Mg Ectab) 81 mg PO QPM COOKIE Stop: 08/31/23 20:59 Last Admin: 08/05/23 20:56 Dose: 81 mg Cyanocobalamin (Cyanocobalamin (B-12) 500 Mcg Tablet) 1,000 mcg PO PM COOKIE Stop: 08/31/23 20:59 Last Admin: 08/05/23 20:56 Dose: 1,000 mcg Cyclobenzaprine HCl (Cyclobenzaprine Hcl 10 Mg Tab) 10 mg PO Q8H PRN PRN Reason: muscle spasm Stop: 08/31/23 11:05 Dextrose (Dextrose 50% 50 Ml Syringe) 25 - 50 ml IV UD PRN; Protocol PRN Reason: Hypoglycemia Protocol Stop: 08/31/23 11:07 Glucagon (Glucagon For Inj 1 Mg Vial) 1 mg SQ UD PRN; Protocol PRN Reason: Hypoglycemia Protocol Stop: 08/31/23 11:07 Glucose (Glucose 40% Gel 15 Gm Tube) 15 - 30 gm PO UD PRN; Protocol PRN Reason: Hypoglycemia Protocol Stop: 08/31/23 11:07 Glucose (Glucose 10 Tab/Tube) 4 - 8 tab PO UD PRN; Protocol PRN Reason: Hypoglycemia Treatment Stop: 08/31/23 11:07 Cefepime HCl 1,000 mg/ Syringe 10 mls @ 5 mls/min IV Q12H COOKIE; Protocol Stop: 08/12/23 11:59 Last Admin: 08/06/23 12:25 Dose: 5 mls/min Insulin Aspart (Insulin Aspart Per Unit Charge) 0 units SC ACHS [facility] Stop: 08/31/23 11:29 Last Admin: 08/06/23 12:10 Dose: Not Given Lactobacillus Acidophilus (Advanced Probiotic 625 Mg Capsule) 1,250 mg PO DAILY [facility] Stop: 09/01/23 08:59 Last Admin: 08/06/23 07:57 Dose: 1,250 mg Magnesium Hydroxide (Magnesium Hydroxide Susp 30 Ml Udc) 30 ml PO Q12H PRN PRN Reason: Constipation Stop: 08/31/23 10:45 Magnesium Oxide (Magnesium Oxide 400 Mg Tab) 400 mg PO QAM C[facility]IE Stop: 09/01/23 08:59 Last Admin: 08/06/23 07:57 Dose: 400 mg Metoprolol Succinate (Metoprolol Succ 25mg Ext Rel Tab) 25 mg PO QAM [facility] Stop: 09/01/23 08:59 Last Admin: 08/06/23 07:57 Dose: 25 mg Midodrine (Midodrine Hcl 2.5 Mg Tab) 2.5 mg PO TID@0800,1200,1700 [facility] Stop: 08/31/23 13:44 Last Admin: 08/06/23 12:11 Dose: 2.5 mg Miscellaneous (Carbohydrates For Hypoglycemia ) 15 - 30 gm PO UD PRN PRN Reason: Hypoglycemia Protocol Stop: 08/31/23 11:07 Multivitamins/Folic Acid/Vitamin C (Multivitamin Chewable Tab) 1 tab PO PM [facility]IE Stop: 08/31/23 20:59 Last Admin: 08/05/23 20:56 Dose: 1 tab Oxycodone HCl (Oxycodone Hcl Ir 5 Mg Tab (Immediate Release)) 5 mg PO Q6H PRN PRN Reason: pain Stop: 08/15/23 11:05 Potassium Chloride (Potassium Chloride Crtab 20 Meq Tabcr) 20 meq PO QA [facility]IE Stop: 09/01/23 08:59 Last Admin: 08/06/23 08:03 Dose: 20 meq Tamsulosin HCl (Tamsulosin Hcl 0.4 Mg Cap) 0.4 mg PO PM [facility] Stop: 08/31/23 20:59 Last Admin: 08/05/23 20:57 Dose: 0.4 mg Torsemide (Torsemide 20 Mg Tab) 40 mg PO BID17 [facility] Stop: 08/31/23 20:59 Last Admin: 08/06/23 07:58 Dose: 40 mg Vitamin D (Cholecalciferol 25 Mcg (1000 Units) Tab) 50 mcg PO PM [facility] Stop: 08/31/23 20:59 Last Admin: 08/05/23 20:56 Dose: 50 mcg Warfarin Sodium (Warfarin Sod 3 Mg Tab) 3 mg PO [email or web address]@1600 [facility] Stop: 09/02/23 15:59 Last Admin: 08/03/23 17:08 Dose: 3 mg Warfarin Sodium (Warfarin Sod 1 Mg Tab) 1 mg PO [email or web address]@1600 [facility] Stop: 09/01/23 16:29 Last Admin: 08/05/23 16:54 Dose: 1 mg Warfarin Sodium (Warfarin Sod 0.5 Mg Tab) 0.5 mg PO [email or web address]@[address] [place] [address] Stop: 09/01/23 16:29 Last Admin: 08/05/23 16:55 Dose: 0.5 mg
[2023-08-07 06:39] LABS: Albumin Globulin Ratio 0.8 (0.9-2); Albumin Level 3.1 gm/dl (3.4-5.0); BUN Creatinine Ratio 21.4 (10-20); Bilirubin,Total 0.4 mg/dl (0.2-1.0); Calcium 8.6 mg/dl (8.6-10.3); Creatinine Clr Calc Pharmacy 22.3 ml/min; Est GFR (African American) 21.2 ml/min; Est GFR (Non-African American) 18.3 ml/min; Globulin 3.8 gm/dl (2.5-4.0); Potassium 3.1 mmol/L (3.5-5.1); Total Protein 6.9 gm/dl (6.0-8.3)
[2023-08-07 06:46] LABS: INR 2.4 (0.9-1.1)
[2023-08-07] MEDS: POTASSIUM CHLORIDE CRTAB 20 MEQ TABCR PO STA (09:03)
[2023-08-07 10:28] LABS: Basophils # (auto) 0.01 K/uL (0.00-0.20); Basophils % (auto) 0.2 %; Eosinophils # (auto) 0.27 K/uL (0.00-0.50); Eosinophils % (auto) 5.2 %; Hematocrit (blood only) 27.2 % (42.0-52.0); Hemoglobin 8.9 g/dl (14.0-18.0); Immature Granulocytes # (auto) 0.02 K/uL (0.01-0.20); Immature Granulocytes % (auto) 0.4 %; Lymphocytes # (auto) 1.08 K/uL (1.20-3.40); Lymphocytes % (auto) 20.7 %; Mean Corpuscular Hemoglobin 28.3 pg (25.0-34.0); Mean Corpuscular Hgb Conc 32.7 g/dL (32.0-36.0); Mean Corpuscular Volume 86.3 fL (80.0-100.0); Mean Platelet Volume 11.1 fL (9.4-12.4); Monocytes # (auto) 0.47 K/uL (0.11-0.59); Neutrophils # (auto) 3.37 K/uL (1.40-6.50); Neutrophils % (auto) 64.5 %; Platelet Count 179 K/uL (130-400); RDW Coefficient of Variation 14.4 % (11.5-14.5); RDW Standard Deviation 45.5 fL (36.4-46.3); Red Blood Count 3.15 M/uL (4.70-6.10); White Blood Count 5.22 K/ul (4.8-10.8)
--- NOTE | 2023-08-07 12:39 | Hospitalist Progress Note ---
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 Per wound clinic, his wound culture is growing MRSA and Pseudomonas and gram- negative rods. Follow full reports once that is faxed to our hospital. Start patient on daptomycin and Zosyn, probiotic, hold statin, CPK baseline level. Appreciate wound care consult and recommendation Appreciate ID recommendation-to continue Zosyn and intravenous daptomycin The pacemaker is not compatible with MRI CT scan of the leg has been ordered to rule out possibility of osteomyelitis Will discuss with ID for duration of antibiotic tomorrow Patient remains stable to be discharged He will have follow-up appointments with outpatient wound care Remains medically stable Will be discharged home this afternoon Discussed with the ID specialist Final culture grew Pseudomonas aeruginosa sensitive to cefepime. Culture and sensitivities were reviewed from outpatient studies as well. CT scan did not show any abscess and/or osteomyelitis-MRI scan was not being able to done Recommendation was given to continue with intravenous cefepime for a total of 7 to 14 days Patient will have ultrasound-guided line He received cefepime 2 g today Will have 1 g cefepime twice daily from tomorrow given the renal function Cannot have cefepime intravenously twice a day at home as was planned yesterday He will get intravenous medications while in the hospital and likely discharge on Monday He will come to [facility] for the next 5 or 6 days to finish the course of intravenous cefepime Will arrange for [facility] scheduled to finish the course of intravenous antibiotic He will have cefepime 2 g IV daily for the next 4 days and MTU (2) Bacterial infection due to Pseudomonas: Plan: Strongly advised to continue with the wound care as an outpatient Keep the wound clean and dry Plan UTI: Patient already on antibiotic, see above. Follow urine culture. Urine culture is growing gram-negative bacilli Has been on intravenous Zosyn Urine is growing Klebsiella pneumonia which is pansensitive IV cefepime will be covering Klebsiella pneumonia as well Chronic atrial fibrillation: Patient on Coumadin, supratherapeutic INR today, hold Coumadin today. Coumadin restarted Rate remains controlled Other chronic medical conditions: End-stage renal disease not on dialysis Chronic diastolic heart failure-asymptomatic and not in any evidence of fluid overload HTN, CAD status post pacemaker, NIDDM diabetes, HLD, BPH---- continue with/resume home meds as and when able. DVT prophylaxis: Supratherapeutic INR, Coumadin on hold INR is 2.8 Will continue with the Coumadin Full code Admission and Anticipated Discharge Date Admission Date: August 01, 2023 Subjective 08/02/2023 The patient was seen and examined in medical floor He came in with right leg worsening wound from the wound clinic Wound culture has been growing MRSA as an outpatient and Pseudomonas in the hospital Denies any significant pain No fever and no chills 08/03/2023 The patient was seen and examined in medical floor He has been feeling much better Leg swelling has improved Denies any fever and or chills 08/04/2023 The patient was seen and examined in medical floor He has been stable Denies any fever and or chills Leg swelling is better 08/05/2023 The patient was seen and examined in medical floor He has been stable Denies any pain in the right leg No fever and or chills 08/06/2023 The patient was seen and examined in medical floor He has been stable Discharge tomorrow with [facility] arrangements for intravenous antibiotic to finish the course 08/07/2023 The patient was seen and examined in medical floor He has been feeling much better Denies any new symptoms Labs remained unremarkable Review of Systems Review of Systems: All systems reviewed and are unremarkable except as noted below Physical Exam Physical Exam: Lying in bed without any acute distress Constitutional: average body habitus; not ill appearing Eyes: PERRL, conjunctivae normal, anicteric sclerae ENMT: external ear and nose normal, oropharynx normal Neck: trachea midline, no thyromegaly Respiratory: no respiratory distress Auscultation: lungs clear to auscultation bilaterally Cardiovascular: Rate/Rhythm: regular rate and regular rhythm; not tachycardic Heart Sounds: normal S1, normal S2 and + murmur Extremities: + edema (Bilateral leg edema with chronic skin changes bilaterally. Right leg ulcer) Gastrointestinal (Abdomen): Inspection/Auscultation: normal bowel sounds; abdomen not distended Percussion/Palpation: abdomen soft; abdomen nontender Neurologic: normal touch/pain/proprioception and moves all extremities; no focal motor deficits Psychiatric: A+Ox3, euthymic affect Lymphatic: no cervical or axillary lymphadenopathy Results & Data Results & Data Vital Signs (Past 12 Hours) Vital Signs Temp Pulse Pulse Pulse Resp BP BP 08/07/23 10:59 36.8 C 60 68 63 16 113/74 104/67 08/07/23 07:45 36.8 C 63 16 104/67 Pulse Ox O2 Del Method 08/07/23 10:59 99 08/07/23 07:45 99 Room Air Laboratory Results Short CBC 08/07/23 Range/Units 05:50 WBC 5.22 (4.8-10.8) K/ul Hgb 8.9 L (14.0-18.0) g/dl Hct 27.2 L (42.0-52.0) % Plt Count 179 (130-400) K/uL BMP 08/07/23 05:50 Sodium 136 Potassium 3.1 L Chloride 98 Carbon Dioxide 29 BUN 69 H Creatinine 3.23 H Glucose 98 Calcium 8.6 Liver Function 08/07/23 Range/Units 05:50 Total Bilirubin 0.4 (0.2-1.0) mg/dl AST 16 (13-39) U/L ALT 14 (7-52) U/L Alkaline Phosphatase 40 (34-104) U/L Albumin 3.1 L (3.4-5.0) gm/dl
--- NOTE | 2023-08-08 07:27 | Discharge Summary ---
Date of Service August 08, 2023 Admission HPI Per Admitting Provider 73 yo M w/ pmh of ischemic left MCA stroke (2018 inpatient stay at [facility] [place]), AF ( On Coumadin), DM2, HLD, CKD, tachy-geronimo syndrome s/p PPM, depression, and PAD s/p stent RLE, RLE cellulitis in the recent past presented to the ED At referral of [facility] wound care [[phone] per patient]. Patient reports that he had cellulitis about a month ago and was treated, there was a blister that broke and was being taken care of at wound care. Last Monday they were debriding the wound and packed it. They sent the wound for culture, once the results were out, he was notified yesterday to go to the hospital for management. He also reports that he was given a course of Nuzrya for 5 days which he completed on Monday. He denies fever/sore throat/cough/chest pain/belly pain/acute changes in bowel or bladder habit/nausea/vomiting/headache/dizziness. He denies pain or burning with passing urine. He reports decreased appetite. Reports quitting smoking many years ago, denies recreational drug use, reports very occasional alcohol use. Full code Medications were reviewed with the patient in detail. Plan of care were discussed with the patient in detail. Called his [facility] wound care clinic, the culture from Monday grew MRSA and Pseudomonas and gram-negative rods per them. They are faxing the full reports to us. Will start him empirically on daptomycin and Zosyn. Principal Diagnosis Right leg wound with cellulitis Discharge Exam Lying in bed without any acute distress Constitutional average body habitus; not ill appearing Eyes PERRL, conjunctivae normal, anicteric sclerae ENMT external ear and nose normal, oropharynx normal Neck trachea midline, no thyromegaly Respiratory no respiratory distress Auscultation: lungs clear to auscultation bilaterally Cardiovascular Rate/Rhythm: regular rate and regular rhythm; not tachycardic Heart Sounds: normal S1, normal S2 and + murmur Extremities: + edema (Bilateral leg edema with chronic skin changes bilaterally. Right leg ulcer) Gastrointestinal (Abdomen) Inspection/Auscultation: normal bowel sounds; abdomen not distended Percussion/Palpation: abdomen soft; abdomen nontender Neurologic normal touch/pain/proprioception and moves all extremities; no focal motor deficits Psychiatric A+Ox3, euthymic affect Lymphatic no cervical or axillary lymphadenopathy Discharge Data Allergies Allergy/AdvReac Type Severity Reaction Status Date / Time No Known Allergies Allergy Verified 08/01/23 09:23 Consultations 08/01/23 09:48 ED Decision to Admit Stat 08/01/23 10:44 HIM [Consult Health Information Management] Routine 08/01/23 10:46 Consult Infectious Diseases Routine Ordered Studies 08/03/23 13:10 CT leg [CT tib/fib RT wo con] Routine Hospital Course (1) Cellulitis of leg, right: Infected RLE calf wound 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 Per wound clinic, his wound culture is growing MRSA and Pseudomonas and gram- negative rods. Follow full reports once that is faxed to our hospital. Start patient on daptomycin and Zosyn, probiotic, hold statin, CPK baseline level. Appreciate wound care consult and recommendation Appreciate ID recommendation-to continue Zosyn and intravenous daptomycin The pacemaker is not compatible with MRI CT scan of the leg has been ordered to rule out possibility of osteomyelitis Will discuss with ID for duration of antibiotic tomorrow Patient remains stable to be discharged He will have follow-up appointments with outpatient wound care Remains medically stable Will be discharged home this afternoon Discussed with the ID specialist Final culture grew Pseudomonas aeruginosa sensitive to cefepime. Culture and sensitivities were reviewed from outpatient studies as well. CT scan did not show any abscess and/or osteomyelitis-MRI scan was not being able to done Recommendation was given to continue with intravenous cefepime for a total of 7 to 14 days Patient will have ultrasound-guided line He received cefepime 2 g today Will have 1 g cefepime twice daily from tomorrow given the renal function Cannot have cefepime intravenously twice a day at home as was planned yesterday He will get intravenous medications while in the hospital and likely discharge on Monday He will come to [facility] for the next 5 or 6 days to finish the course of intravenous cefepime Will arrange for [facility] scheduled to finish the course of intravenous antibiotic He will have cefepime 2 g IV daily for the next 4 days and [facility] (2) Bacterial infection due to Pseudomonas: Strongly advised to continue with the wound care as an outpatient Keep the wound clean and dry Plan UTI: Patient already on antibiotic, see above. Follow urine culture. Urine culture is growing gram-negative bacilli Has been on intravenous Zosyn Urine is growing Klebsiella pneumonia which is pansensitive IV cefepime will be covering Klebsiella pneumonia as well Chronic atrial fibrillation: Patient on Coumadin, supratherapeutic INR today, hold Coumadin today. Coumadin restarted Rate remains controlled Other chronic medical conditions: End-stage renal disease not on dialysis Chronic diastolic heart failure-asymptomatic and not in any evidence of fluid overload HTN, CAD status post pacemaker, NIDDM diabetes, HLD, BPH---- continue with/resume home meds as and when able. DVT prophylaxis: Supratherapeutic INR, Coumadin on hold INR is 2.8 Will continue with the Coumadin Full code Total Time Total Time Spent Total Time Spent (In Minutes): 35 minutes Discharge Plan Discharge Items Patient Disposition: Home - Home Health Services Reason For Visit: WOUND INFECTION X RLE Discharge Diagnosis: Right leg wound with cellulitis Condition on Discharge: Fair Activity: Resume your previous activity Non-emergency contact: Primary Care Provider Call non-emergency contact if: you have any medication questions and your symptoms worsen Follow-up/Referrals: Medical Treatment Unit (MTU) [Outside] - 08/08/23 10:30 am (You have an appo intment tomorrow for your IV antibiotic at 10:30am. ) Jocelyne Desai DO [Primary Care Provider] - (Date & Time 08/14/2023 10:20 AM Provider Savanna Al PA-C Department Family Medicine [facility] ) Diet: Carb Consistent or DM2 and Heart Healthy Ambulatory Orders: Complete Blood Count with Diff (Routine) Timeframe: 1 Day Location: Determined by Patient Ordered By: Rex Almendarez Comprehensive Metabolic Panel (Routine) Timeframe: 1 Day Location: Determined by Patient Ordered By: Rex Almendarez Addtl Attending Provider Instructions: Please take precautions to avoid falls Finish the course of antibiotic as advised Continue to dress your wound as advised by the wound care Keep the wound clean and dry Keep your legs elevated over a pillow while sleeping Please keep appointments with the healthcare providers Pending Studies at Discharge: No Stand-Alone Forms: My [facility], Smoking Cessation Medications and DC Order Prescriptions: New Advanced Probiotic 625 mg (10 billion cell) Capsule 1 cap PO DAILY Qty: 30 0RF Continued magnesium oxide 400 mg magnesium capsule 400 mg PO QAM Flintstones Complete (iron) Tablet,Chewable 1 tab PO PM Qty: 0 atorvastatin 40 mg Tablet 40 mg PO PM Qty: 0 cholecalciferol (vitamin D3) [Vitamin D3] 1,000 unit Capsule 2,000 unit PO PM tamsulosin 0.4 mg Capsule 0.4 mg PO PM cyanocobalamin (vitamin B-12) 1,000 mcg Tablet 1,000 mcg PO PM triamcinolone acetonide 0.1 % Cream 1 applic TOPICAL BID PRN (Reason: Rash) Rx Instructions: To affected area acetaminophen 500 mg Tablet 1,000 mg PO Q6H PRN (Reason: Pain) aspirin 81 mg Tablet 81 mg PO QPM warfarin 3 mg Tablet See Rx Instructions .ROUTE .COMPLEX Rx Instructions: Take 3mg by mouth on Sun// and 1.5mg by mouth all other days in the evening. cyclobenzaprine 10 mg Tablet 10 mg PO Q8H PRN (Reason: muscle spasm) Qty: 15 0RF metoprolol succinate 25 mg Tablet Extended Release 24 Hr 25 mg PO QAM Qty: 30 0RF midodrine 2.5 mg Tablet 2.5 mg PO TID@0800,1200,1700 Qty: 90 0RF Soaanz 40 mg tablet 40 mg PO BID Qty: 60 0RF Rx Instructions: Takes 2nd dose early evening oxycodone 5 mg tablet 5 mg PO Q6H PRN (Reason: pain) Qty: 20 0RF Ozempic 0.25 mg or 0.5 mg (2 mg/3 mL) pen injector 0.25 mg SUBCUT WK Rx Instructions: Monday potassium chloride 20 mEq tablet,ER particles/crystals 20 meq PO QAM Discharge Orders: Discharge Order (Routine); Ordered 08/07/23 Ordered By: Rex Barbosa/Other Patient Handouts: Nutrition for Wound Healing, Managing Type 2 Diabetes, Preventing Deep Vein Thrombosis Admission Data Admit Date/Time: 08/01/23 10:46 Attending Provider: Rex Almendarez Admit Provider: Derik Curtis Primary Care Provider: Jocelyne Desai Other Providers: Derik Curtis; Thierry Aguayo; Jen Juárez; Raymond Lam I.; Enrique Enriquez II; Marycarmen Vega; Greg Freeman; Manuel Ogden; Mica Shah Other Interventions: Discharge Summary Assessment (RN) Last Done: 08/07/23 10:59
== END 2023-08-07 15:28 | disposition home health service (06) | DRG 602 ==
LOC: ED 08:24 → SUATTDRO 10:46 → EDINP 10:46 → 3E 16:41

== ENCOUNTER 2023-10-21 16:24 | Inpatient (IN) ==
--- OUTSIDE RECORDS SUMMARY | 2023-10-21 16:32 | External Medical Summary | Summary of Care ---
Author Name Unknown Organization [facility] Address [address] [facility] [place] [address] Phone [phone] Care Team Providers Care Veneer Taping Machine Offbearer Name Role Phone Jocelyne Desai Primary Care Provider [phone] Encounter Details Date Type Department Care Team (Late st Contact Info) Description 10/13/2023 Result Scan Unspecified Department Estefania Palacios, [facility] [address] [place] [address] <No scans attached> Allergies No known active allergiesdocumented as of this encounter (statuses as of 10/17/2023) Medications Medication Sig Dispensed Refills Start Date End Date Status ACETAMINOPHEN 500 MG PO TABS 2 tabs every 6 hours as needed for discomfort 11/01/2013 Active Vitamin B-12 1000 MCG Oral Tablet (Cyanocobalamin) Take 1 Tablet by mouth every evening. 30 Tablet 07/05/2023 Active Flintstones w/Iron 18 MG Oral Tablet Chewable Take 1 Tablet by mouth every evening. 30 Tablet 07/05/2023 Active Magnesium Oxide 400 MG Oral Capsule Take 1 Capsule by mouth in the morning. 30 Capsule 07/05/2023 Active Sennosides-Docusat e Sodium 8.6-50 MG Oral Tablet (Senna S) Take 1 Tablet by mouth in the morning. 30 Tablet 07/05/2023 Active Additional Information Patient not taking.Reported on 09/27/2023 Midodrine HCl 2.5 MG Oral Tablet (Proamatine) [...] 07/25/2023 Active Aspirin 81 MG Oral Tablet Chewable Take 1 Tablet by mouth in the morning. with food.. 08/23/2023 Active Torsemide 20 MG Oral Tablet (Demadex) Take 1 Tablet by mouth in the morning and 1 Tablet before bedtime. 08/25/2023 Active Potassium Chloride Candi ER 20 MEQ Oral Tablet Extended Release Take 2 Tablets by mouth in the morning and 2 Tablets before bedtime. 09/06/23 Take 2 tablets in the morning 1 tablet before bed. 09/06/2023 Active documented as of this encounter (statuses as of 10/17/2023) Active Problems Patient Care Coordination No te Formatting of this note migh t be different from the original. Good connectivity [facility] for wound care [phone] Televideo if needed. 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 He has significant history DM and PVD and recommended he still follow up with podiatry,. Letter in chart from [facility] pod[facility]ry they were unable to get [...] kidney disease 06/23/2020 Overview: Per CKD protocol Hyperparathyroidism, secondary renal 04/14/2020 Diabetes mellitus due [...] ICD-10 update of inactive term PLATT RESEARCH OTHER*[id number] 02/20/2007 ADVANCE DIRECTIVE INFORMATION 01/19/2005 Overview: Yes, Patient instructed to provide copy of advance directive for provider to review and to be scanned into Electronic Medical Record No, Advance Directive brochure given to patient at prior appointment. SPINAL STENOSIS-LUMBAR 09/23/2002 Vitamin D deficiency Cervical spinal stenosis documented as of this encounter (statuses as of 10/17/2023) Resolved Problems Problem Noted Date Diagnosed Date [...] 3b 06/23/2020 10/26/2020 Overview: Per CKD protocol PAD (peripheral artery disease) 04/14/2020 09/19/2023 Overview: Included in DM complication code on pl Morbid (severe) obesity due to excess calories [...] 11/17/19 23 LUMBAGO 12/24/2002 05/09/2007 LOC PRIM [id number] 12/24/200208/13 DEGENERATIVE SKIN DISORD 12/24/2002 VERTEBRAL FX [...] as of this encounter (statuses as of 10/17/2023) Immunizations Name Administration Dates Next Due COVID-19 [...] lent, No Preserve, IM 12/21/2015,12/25/2014 Seasonal Influenza, Trivalen t, (IIV3), with Preserv, (Fluzone) 01/28/2014,11/05/2012,11/09/2011,11/13,12/05/2008,12/26/2007 Seasonal Influenza, Trivalen t, Adjuvanted, 65+ YRS, PF, (Fluad) 11/27/2018 TDAP, Age 7 and older, IM [...] money to get more. Never true 02/16/2023 Childcare Answer Date Recorded Do you feel overwhelmed with taking care of a child, family member or friend? No 02/16/2023 Does your family need help f inding childcare? (Household - for ages 0-17 years) Not on file 02/16/2023 Clothing Answer Date Recorded Have you been unable to get clothing when it was really needed? No 02/16/2023 Is your family able to get c lothes or diapers when needed? (Household - for ages 0-17 years) Not on file 02/16/2023 Personal Safety Answer Date Recorded Do you feel unsafe or have concerns for your saf ety? No 02/16/2023 Do you have concerns for you r family's safety? (Household - for ages 0-17 years) Not on file 02/16/2023 Utilities Answer Date Recorded Do you have trouble paying y our heating, water, or electric bill? No 02/16/2023 Is your family able to pay t he heat, water, or electric bill? (Household - for ages 0-17 years) Not on file 02/16/2023 Does your family have access to good internet? (Household - for ages 0-17 years) Not on file 02/16/2023 Employment Status Answer Date Recorded Are you unemployed or without regular income? No 02/16/2023 Does the household have a [facility] source of income? (Household - for ages 0-17 years) Not on file 02/16/2023 Social Connections Answer Date Recorded How often do you feel lonely or isolated from th ose around you? Never 02/16/2023 Financial Resource Strain Answer Date R ecorded Do you have any trouble payi ng for your medications, or do you think you might in the future? No 02/16/2023 Does your family have troubl e paying for medicine? (Household - for ages 0-17 years) Not on file 02/16/2023 Transportation Needs Answer Date Record ed READ ONLY Do you have troubl e getting a ride to medical visits or work? Never True 02/16/2023 Does your family have a hard time getting a ride to doctors visits? (Household - for ages 0-17 years) Not on file 02/16/2023 Has lack of transportation k ept you from medical appointments, meetings, work, or from getting things needed for daily living? Check all that apply. (Adult - for ages 18 years and over) Not on file 02/16/2023 Do you (or your family) have trouble finding or paying for a ride (transportation)? (Household - for ages 0-17 years) Not on file 02/16/2023 Housing Stability Answer Date Recorded Do you currently live in a s helter or have no steady place to sleep at night? No 02/16/2023 READ ONLY Do you think you a re at risk of becoming homeless? No 02/16/2023 Does your family worry about paying for your home or becoming homeless? (Household - for ages 0-17 years) Not on file 0 02/16/2023 Are you homeless or worried that you might be in the future? (Adult - for ages 18 years and over) Not on file Are you (or your family) ashleigh eless or worried that you might be in the future? (Household - for ages 0-17 years) Not on file Food Insecurity Answer Date Recorded Do you need food for this week? No 02/16/2023 Are you able to get enough f ood for your family? (Household - for ages 0-17 years) Not on file 02/16/2023 Does your family need food t his week? (Household - for ages 0-17 years) Not on file 02/16/2023 Do you always have enough fo od for your family? (Household - for ages 0-17 years) Not on file 02/16/2023 Sex and Gender Information Value Date [...] 11/20/2023 2:00 PM EDT Office Visit Nephrology [address] [place] [address] Marycarmen Kowalski PA-C [address] [facility] [place] [address] 01/19/2024 9:00 AM EST Office Visit Gastroenterology [address] [place] [address] Moon Avila CRNP [address] [place] [address] 02/20/2024 12:30 PM EST Nurse Only Ancillary [address] [place] [address] [place], Nurse Annual Wellness [address] [place] [address] [place] [address] 03/08/2024 2:30 PM EST Office Visit Family Medicine [address] [place] [phone] [place] [address] Scheduled Procedures Name Priority Associated Diagnoses Date/Ti me COLONOSCOPY FLEXIBLE PROXIMA L DIAGNOSTIC Recall Screening for colon cancer Health Maintenance Due Date Last Done Comments Cologuard 1997 Sigmoidoscopy 1997 Fecal Occult Blood Test 09/02/2009 09/02/2008, 05/04 Diabetic Eye Exam 12/30/2022 12/30/2021, , 12/28/2021, Additional history exists COVID-19 Vaccine ( season) 2023 11/16/2022, 11/16/2021, 02/16/2021, Additional history exists Influenza Vaccine (FLU shot) (#1) 2023 11/16/2022, 11/09/2021, 10/16/2020, Additional history exists Diabetic Foot Exam 11/17/2023 11/16/2022, 0 05/05/2021, 11/22/2017, Additional history exists Adult Wellness Visit 02/17/2024 02/16/2023, 02/09/2022, 02/08/2021 Depression Screening 02/17/2024 02/16/2023 HbA1c 02/23/2024 08/23/2023, 10/0 05/2022, 11/09/2022, Additional history exists GFR 04/03/2024 10/02/2023, 09/13, 09/04/2023, Additional history exists Albumin/Creatinine Ratio 07/17/2024 024, 11/16/2022, 05/13/2022, Additional history exists DTap/Tdap Vaccines (3 - Td or Tdap) 12/01/2028 12/01/2018, 10/11/2007 Colonoscopy 09/09/2031 09/08/2021, 08/14, 09/23/2010 Colorectal Cancer Screening 09/09/2031 Hepatitis B Vaccine Completed 11/11/2002, 06/10/2002, 05/13/2002 Pneumococcal Vaccine: 65+ Years Completed 11/27/2018, 11/01/2017, 09/28/2005 Zoster Vaccines Completed 01/08/2019, 10/04/2018 HPV (Gardasil) Vaccine Aged Out No lo nger eligible based on patient's age to complete this topic MENINGOCOCCAL (MENACTRA/MENVEO) Aged Out No longer eligible based on patient's age to complete this topic documented as of this encounter Medical Devices Implanted Type Area Sand Control Worker Device Identifier Shelf Expiration Date Model / Serial / Lot Shaft Fibula 6cm [id number] - [id number] [place] [facility] [place] N/A: Spine Cervical MUSCULOSKELETAL TRANSPLANT FND 04/20/2010 [id number] / [id number] 0P / Stent Eso Gw 22x70 [id number] - [id number] Implanted:Qty: 1 on 01/21/2008 [place] [facility] [place]/A: Esophagus [employer] 04/12/2009 [id number] / / [id number] Depuy Uniplate 32 Implanted:Qty: 1 on 09/05/2008 [place] [facility] [place]: Spine Cervical TAMMY & TAMMY DEPUY 302 / / Depuy Uniplate Screw 14mm Implanted:Qty: 2 on 09/05/2008 [place] [facility] [place]/A: Spine Cervical TAMMY & TAMMY DEPUY [id number] / / Depuy Lordotic Bengal Cage Implanted:Qty: 1 on 05/07/2010 [place] [facility] [place]/A: Neck 1773-06-146 / [id number] / Plate Zach 3 Level Ti 54mm - [id number] Implanted:Qty: 1 on 05/07/2010 [place] [facility] [place]/A: Neck JNJ : DEPUY SPINE [id number] / / Screw Zach Const St Ti 14mm - [id number] Implanted:Qty: 4 on 05/07/2010 [place] [facility] [place]A: Neck JNJ : DEPUY SPINE [id number] 14 / / Screw 3.5x14 Mntr Fa [id number] - [id number] Implanted:Qty: 8 on 05/07/2010 [place] [facility] [place]: Spine Cervical JNJ : ETHICON [employer]ATIONS [id number] / / Jarrell [id number] - [id number] Implanted:Qty: 1 on 05/07/2010 [place] [facility] [place]: Spine Cervical JNJ : ETHICON [employer]ATIONS [id number] / / Screw Inner Mntr [id number] - [id number] Implanted:Qty: 8 on 05/07/2010 [place] [facility] [place]A: Spine Cervical JNJ : ETHICON CARD[employer]ATIONS [id number] / / Envista Intraocular Lens Implanted:Qty: 1 on 03/10/2022 by Liang Marshall MD at [place] [facility] Right: Eye BAUSCH & LOMB 08/13/2023 [id number] / [id number] / [id number] Envista Intraocular Lens Implanted:Qty: 1 on 03/24/2022 by Liang Marshall MD at [place] [facility] Left: Eye BAUSCH & LOMB 07/13/2024 [id number] / [id number] / [id number] documented as of this encounter Procedures Procedure Name Priority Date/Time Associated Diagnosis Comments OUTSIDE LAB RESULTS 10/13/2023 documented in this encounter Results * OUTSIDE LAB RESULTS (10/13/2023) 10/13/2023 Estefania Palacios [facility] LABORATORY documented in this encounter Advance Directives Documents on File Type Date Recorded Patient Lean Leader Expl anation POLST 01/26/2021 [place] OR [facility] FOR LIFE-SUSTAINING TREATMENT * No [...] Power of Attor andrew? No Care Teams Veneer Taping Machine Offbearer Relationship Specialty Start Date End Date Jocelyne Desai DO [address] [place] [address] [place] [address] PCP - General Internal Medicine 11/09/16 documented as of this encounter
--- OUTSIDE RECORDS SUMMARY | 2023-10-21 16:32 | External Medical Summary | Summary of Care ---
Author Name Unknown Organization [facility] Address [address] [place] [facility] [place] [address] Phone [phone] Care Team Providers Care Ladle Repairer Name Role Phone Jocelyne Desai Primary Care Provider [phone] Encounter Details Date Type Department Care Team (Late st Contact Info) Description 10/19/2023 Telephone Nephrology, Cely Zaldivar [address] [facility] [place] [address] Jennifer Agustin MD [address] [place] [address] Allergies No known active allergiesdocumented as of this encounter (statuses as of 10/19/2023) Medications Medication Sig Dispensed Refills Start Date [...] as of this encounter (statuses as of 10/19/2023) Active Problems Patient Care Coordination No te Formatting of this note migh t be different from the original. Good connectivity [facility] for wound care [phone] Televideo if needed. 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 SPINAL STENOSIS-LUMBAR 09/23/2002 Vitamin D deficiency Cervical spinal stenosis documented as of this encounter (statuses as of 10/19/2023) Resolved Problems Problem Noted Date Diagnosed Date Resolved Date Depression, unspecified 11/09/2021 03/2 Depression, unspecified 11/09/202105/2022 Cellulitis of right leg 07/13/202105/2022 Last Assessment & Plan: Suspect this could be early/localized. Will treat with 7 days antibiotic. If pt cannot be reassess by Dr. Braxton office early next week will need [facility] provider recheck Multiple and open wound [...] 11/17/19 23 LUMBAGO 12/24/2002 05/09/2007 LOC PRIM [id number] 12/24/200208/13 DEGENERATIVE SKIN DISORD 12/24/2002 VERTEBRAL FX [...] as of this encounter (statuses as of 10/19/2023) Immunizations Name Administration Dates Next Due COVID-19 [...] No 02/16/2023 Does the household have a re lar source of income? (Household - for ages [...] Telephone Encounter - Libby Hurd RN - 10/19/2023 9:24 AM EDT ----- Message from Jennifer Agustin MD sent at 10/17/2023 4:13 PM EDT ----- Alerted by PCP regarding concern for worsening renal function on labs on improved with holding diuretics. GFR significantly diminished compared to June. >Had been waiting for labs which were to be drawn every 7-10 days but none seen since these weredone: Any updates? Need BMP, hgb >may need to overbook >recommend CKD watch supervisor if able >keep 11/19 appt w/ Marycarmen BANERJEE documented in this encounter Plan of Treatment Upcoming Encounters Date Type Department Care Team (Late st Contact Info) Description 10/30/2023 6:30 AM EDT Anticoagulation [facility]ized [facility] Services, Ilya Lafleur [address] [place] [address] [place] [address] Ccps, [address] [place] [address] 11/20/2023 2:00 PM EDT Office Visit Nephrology [address] [place] [address] ZeMarycarmen alan PA-C [address] [facility] [address] 01/19/2024 9:00 AM EST Office Visit Gastroenterology [address] [place] [address] Moon Avila CRNP [address] [place] [address] 02/20/2024 12:30 PM EST Nurse Only Ancillary [address] [place] [address] [place], Nurse [address] [place] [address] 03/08/2024 2:30 PM EST Office Visit Family Medicine [address] [place] [phone] Jocelyne Desai, [address] [place] [address] Scheduled Procedures Name Priority Associated Diagnoses Date/Ti [...] 11/09/2022, Additional history exists GFR 04/03/2024 10/02/2023, 08/1 04/2023, 09/04/2023, Additional history exists Albumin/Creatinine Ratio 07/17/2024 024, 11/16/2022, 05/13/2022, Additional history exists DTap/Tdap Vaccines (3 - Td or Tdap) 12/01/2028 12/01/2018, 10/11/2007 Colonoscopy 09/09/2031 09/08/2021, 0708/2021, 09/23/2010 Colorectal Cancer Screening 09/09/2031 Hepatitis B [...] this encounter Medical Devices Implanted Type Area Horn Player Device Identifier Shelf Expiration Date Model / Serial / Lot Shaft Fibula 6cm [id number] - [id number] Implanted:Qty: 1 on 09/05/2008 at [place] [facility] [place] Tissue - Human N/A: Spine Cervical MUSCULOSKELETAL TRANSPLANT FND 04/20/2010 [id number] / [id number] 0P / Stent Eso Gw 22x70 [id number] - [id number] Implanted:Qty: 1 on 01/21/2008 at [place] [facility] [place] N/A: Esophagus [employer] INC 04/12/2009 27794-380 / / [id number] Depuy Uniplate 32 Implanted:Qty: 1 on 09/05/2008 at [place] [facility] [place] N/A: Spine Cervical TAMMY & TAMMY DEPUY 7-302 / / Depuy Uniplate Screw 14mm Implanted:Qty: 2 on 09/05/2008 at [place] [facility] [place] N/A: Spine Cervical TAMMY & TAMMY DEPUY 017 / / Depuy Lordotic Bengal Cage Implanted:Qty: 1 on 05/07/2010 at [place] [facility] [place] N/A: Neck 1773-06-146 / [id number] / Plate Zach 3 Level Ti 54mm - [id number] Implanted:Qty: 1 on 05/07/2010 at [place] [facility] [place] N/A: Neck JNJ : DEPUY SPINE [id number] / / Screw Zach Const St Ti 14mm - [id number] Implanted:Qty: 4 on 05/07/2010 at [place] [facility] [place] N/A: Neck JNJ : DEPUY SPINE [id number] 14 / / Screw 3.5x14 Mntr Fa [id number] - [id number] Implanted:Qty: 8 on 05/07/2010 at [place] [facility] [place] N/A: Spine Cervical JNJ : ETHICON CARDIOVATIONS [id number] / / Jarrell [id number] - [id number] Implanted:Qty: 1 on 05/07/2010 at [place] [facility] [place] N/A: Spine Cervical JNJ : ETH[employer]ON CARDIOVATIONS [id number] / / Screw Inner Mntr [id number] - [id number] Implanted:Qty: 8 on 05/07/2010 at [place] [facility] [place] N/A: Spine Cervical JNJ : ETHICON CARDI[employer]ATIONS [id number] / / Envista Intraocular Lens Implanted:Qty: 1 on 03/10/2022 by Liang Marshall MD at OR [facility] Right: Eye BAUSCH & LOMB 08/13/2023 [id number] / [id number] / [id number] Envista Intraocular Lens Implanted:Qty: 1 on 03/24/2022 by Liang Marshall MD at OR [facility] Left: Eye BAUSCH & LOMB 07/13/2024 [id number] / [id number] / [id number] documented as of this encounter Advance Directives Documents on File Type Date Recorded Patient Talent Buyer Expl anation POLST 01/26/2021 [place] OR [facility] LIFE-SUSTAINING TREATMENT [...] Power of Attor andrew? No Care Teams Ladle Repairer Relationship Specialty Start Date End Date Jocelyne Desai DO [address] [place] [address] [place] [phone] PCP - General Internal Medicine 11/09/16 documented as of this encounter
--- OUTSIDE RECORDS SUMMARY | 2023-10-21 16:32 | External Medical Summary | Summary of Care ---
Author Name Unknown Organization [facility] Address [address] [facility] [place] [address] Phone [phone] Care Team Providers Care Wet Process Technician Name Role Phone Desai Jocelyne Briggs DO Primary Care Provider + [phone] Encounter Details Date Type Department Care Team (Late st Contact Info) Description 10/20/2023 Telephone Family Practice [facility] [address] [place] [address] Keyana Edward CRNP [address] [place] [address] Allergies No known active allergiesdocumented as of this encounter (statuses as of 10/21/2023) Medications Medication Sig Dispensed Refills Start Date [...] as of this encounter (statuses as of 10/21/2023) Active Problems Patient Care Coordination No te Formatting of this note migh t be different from the original. Good connectivity [facility] for wound care [phone] Televideo if needed. Problem Noted Date Diagnosed [...] up with podiatry,. 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 SPINAL STENOSIS-LUMBAR 09/23/2002 Vitamin D deficiency Cervical spinal stenosis documented as of this encounter (statuses as of 10/21/2023) Resolved Problems Problem Noted Date Diagnosed Date Resolved Date Depression, unspecified 11/09/2021/ Depression, unspecified 11/09/202105/2022 Cellulitis of right leg 07/13/202105/2022 Last Assessment & Plan: Suspect this could be early/localized. Will treat with 7 days antibiotic. If pt cannot be reassess by Dr. Braxton office early next week will need [facility] provider recheck Multiple and open [...] 11/17/19 23 LUMBAGO 12/24/2002 05/09/2007 LOC PRIM [id number] 12/24/200208/13 DEGENERATIVE SKIN DISORD 12/24/2002 VERTEBRAL FX [...] as of this encounter (statuses as of 10/21/2023) Immunizations Name Administration Dates Next Due COVID-19 [...] as of this encounter Progress Notes * Keyana Edward CRNP - 10/20/2023 7:33 PM EDTReceived extrusion press supervisor page that patients hemoglobin level is 6.4 from [facility] lab. I called patient and recommended ER- he feels fine and wants to wait to go to tomorrow. I strongly recommended ER tonmalika and offered to assist with calling someone to take him there. He declined and stated he will make arrangements with someone to go to ER. Received second page at 2029 that patients creatinine is 4.38. Will send to machine adjuster leader for further management - recommendation is still ER for the above. documented in this encounter Miscellaneous Notes * Telephone Encounter - Nino Jalloh MD - 10/21/2023 3:23 PM EDT I also got call from [facility] last night at 856 PM Given hgb of 6.4 and [place]ORGE I also advised patient to go to the ED. Last I checked with [facility] record he is not in the hospital or ED. * Telephone Encounter - Ling Carrion RN - 10/21/2023 9:13 AM EDT Called pt and he said he is feeling okay and that someone is driving him to ER this afternoon. * Telephone Encounter - Keyana Edward CRNP - 10/21/2023 8:42 AM EDT Received extrusion press supervisor page from [facility] [employer] last night (see other encounter). Criticalhg 6.4 and cr 4.3. patient declined to go to ER but after strong encouragement he said he would "make arrangements" to go but was hesitant because he felt fine and was concerned about cost if not admitted. Please call and see how he is/if he went to ER. documented in this encounter Plan of Treatment Upcoming Encounters Date Type Department Care Team (Late st Contact Info) Description 10/30/2023 6:30 AM EDT Anticoagulation Centralized Clinical Pharmacy Services, Ilya Lafleur [address] [place] [address] [place] [address] [place] [address] 11/20/2023 2:00 PM EDT Office Visit Nephrology [address] [place] [address] Marycarmen Kowalski PA-C [address] [place] [address] 01/19/2024 9:00 AM EST Office Visit Gastroenterology [address] [place] [address] Moon Avila CRNP [address] [place] [address] 02/20/2024 12:30 PM EST Nurse Only Ancillary [address] [place] [address] [place], Nurse [address] [place] [address] 03/08/2024 2:30 PM EST Office Visit Family Medicine [address] [place] [phone] [place] [address] Scheduled Procedures Name Priority Associated Diagnoses Date/Ti [...] Depression Screening 02/17/2024 02/16/2023 HbA1c 02/23/2024 08/23/2023, 05/2022, 11/09/2022, Additional history exists GFR 04/03/2024 [...] this encounter Medical Devices Implanted Type Area Service Associate Device Identifier Shelf Expiration Date Model / Serial / Lot Shaft Fibula 6cm [id number] - [id number] Implanted:Qty: 1 on 09/05/2008 [place] [facility] [place] Tissue - Human N/A: Spine Cervical MUSCULOSKELETAL TRANSPLANT FND 04/20/2010 [id number] / [id number] 0P / Stent Eso Gw 22x70 [id number] - [id number] Implanted:Qty: 1 on 01/21/2008 at [place] [facility] [place] N/A: Esophagus ALVEOLUS INC 04/12/2009 76990-579 / / [id number] Depuy Uniplate 32 Implanted:Qty: 1 on 09/05/2008 at [place] [facility] [place] N/A: Spine Cervical TAMMY & TAMMY DEPUY 302 / / Depuy Uniplate Screw 14mm Implanted:Qty: 2 on 09/05/2008 at [place] [facility] [place] N/A: Spine Cervical TAMMY & TAMMY DEPUY [id number] / / Depuy Lordotic Bengal Cage Implanted:Qty: 1 on 05/07/2010 at [place] [facility] N/A: Neck 1773-06-146 / [id number] / Plate Zach 3 Level Ti 54mm - [id number] Implanted:Qty: 1 on 05/07/2010 at [place] [facility] N/A: Neck JNJ : DEPUY SPINE [id number] / / Screw Zach Const St Ti 14mm - [id number] Implanted:Qty: 4 on 05/07/2010 at [place] [facility] N/A: Neck JNJ : DEPUY SPINE [id number] 14 / / Screw 3.5x14 Mntr Fa [id number] - [id number] Implanted:Qty: 8 on 05/07/2010 at [place] [facility] [place] N/A: Spine Cervical JNJ : ETHICON CARDIOVATIONS [id number] / / Jarrell [id number] - [id number] Implanted:Qty: 1 on 05/07/2010 at [place] [facility] [place] N/A: Spine Cervical JNJ : ETHICON CARDIOVATIONS [id number] / / Screw Inner Mntr [id number] - [id number] Implanted:Qty: 8 on 05/07/2010 at [place] [facility] N/A: Spine Cervical JNJ : ETHICON CARDIOVATIONS [id number] / / Envista Intraocular Lens Implanted:Qty: 1 on 03/10/2022 by Liang Marshall MD at OR [facility] Right: Eye BAUSCH & LOMB 08/13/2023 [id number] / [id number] / [id number] Envista Intraocular Lens Implanted:Qty: 1 on 03/24/2022 by Liang Marshall MD at OR [facility] Left: Eye BAUSCH & LOMB 07/13/2024 [id number] / [id number] / [id number] documented as of this encounter Advance Directives Documents on File Type Date Recorded Patient Big Data Developer Expl anation POLST 01/26/2021 [place] [facility] [...] Power of Attor andrew? No Care Teams Wet Process Technician Relationship Specialty Start Date End Date Jocelyne Desai DO [address] [place] [address] [place] [address] PCP - General Internal Medicine 11/09/16 documented as of this encounter
--- OUTSIDE RECORDS SUMMARY | 2023-10-21 16:32 | External Medical Summary | Summary of Care ---
Author Name Unknown Organization [facility] Address [address] [facility] [place] [address] Phone [phone] Care Team Providers Care Corporate 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s Associate Name Role Phone DesaiElissaJoeclynejohn Briggs DO Primary Care Provider + [phone] Reason for Visit * Reason Comments Dosage Adjustment Via Phone (anticoag Cl inic) Encounter Details Date Type Department Care Team (Late st Contact Info) Description 10/17/2023 6:30 AM EDT Anticoagulation Centralized Clinical Pharmacy Services, Ilya Lafleur [address] [place] [address] [place] [address] [facility], [address] [place] [address] Chronic atrial fibrillation (HCC)* Allergies No known [...] be different from the original. Good connectivity [facility] for wound care [phone] Televideo if needed. 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 He has significant history DM and PVD and recommended he still follow up with podiatry,. Letter in chart from [facility] podiatry they were unable to [...] ICD-10 update of inactive term PLATT RESEARCH OTHER*[id number] 02/20/2007 ADVANCE DIRECTIVE INFORMATION 01/19/2005 Overview: Yes, [...] [facility] office early next week will need [facility] provider recheck Multiple and open [...] 11/17/19 23 LUMBAGO 12/24/2002 05/09/2007 LOC PRIM [id number] 12/24/200208/13 DEGENERATIVE SKIN DISORD 12/24/2002 VERTEBRAL FX [...] No 02/16/2023 Does the household have a [place] [facility] source of income? (Household - for ages [...] of this encounter Progress Notes * Andrea Whitmore, Deandre - 10/17/2023 11:17 AM EDT Contacts Contact Date/Time Type Contact Phone/Fax 10/17/2023 11:16 AM EDT Phone (Outgoing) Lg Cooley "Akshat" (Self) [phone] (H) Spoke to Patient Subjective Patient Findings [...] noted by Pharmacist: Yes Andrea Whitmore CPhT 10/17/2023, 11:17 AM * Estefania Palacios RPh - 10/17/2023 8:52 AM EDT Images from the original note were not included. Coumadin Clinic (region specific) Objective Current Warfarin Dose As of 10/17/2023 Warfarin maintenance plan: 3 mg (3 mg x 1) every Tue, Mariel; 1.5 mg (3 mg x 0.5) all other days INR Result As of 10/17/2023 INR goal: 2.0-3.0 INR used for dosin.37 (10/13/2023) Assessment & Plan Warfarin Plan As of 10/17/2023 Full warfarin instructions: 10/16: Hold; Otherwise 3 mg every Tue; 1.5 mg all other days Next INR check: 10/27/2023 Repeat PT/INR in 2 week(s) Weekly dose: decreased Additional Dosing Information: Description [facility] Nurses -- Mondays and Fridays ; fax - [phone] ([facility]) Tech to contact patient with dose instructions as noted. Estefania Palacios RPh 10/17/2023, 8:52 AM documented in this encounter Plan of Treatment Upcoming Encounters Date Type Department Care Team (Late st Contact Info) Description 10/30/2023 6:30 AM EDT Anticoagulation Centralized Clinical Pharmacy Services, Ilya Lafleur [address] [place] [address] [place] [address] [place] [address] 11/20/2023 2:00 PM EDT Office Visit Nephrology [address] [place] [address] Zemacésar, Marycarmen Dill PA-C [address] [place] [address] 01/19/2024 9:00 AM EST Office Visit Gastroenterology [address] [place] [address] Moon Avila CRNP [address] [place] [address] 02/20/2024 12:30 PM EST Nurse Only Ancillary [address] [place] [address] [place], Nurse Annual [address] [place] [address] 03/08/2024 2:30 PM EST Office Visit Family Medicine [address] [place] [phone] Jocelyne Desai, [address] [place] [address] Scheduled Procedures Name Priority Associated Diagnoses Date/Ti [...] Depression Screening 02/17/2024 02/16/2023 HbA1c 02/23/2024 08/23/2023, 1005/2022, 11/09/2022, Additional history exists GFR 04/03/2024 10/02/2023, [...] this encounter Medical Devices Implanted Type Area Leathersmith Device Identifier Shelf Expiration Date Model / Serial / Lot Shaft Fibula 6cm [id number] - [id number] Implanted:Qty: 1 on 09/05/2008 at [place] [facility] [place] Tissue - Human N/A: Spine Cervical MUSCULOSKELETAL TRANSPLANT FND 04/20/2010 [id number] / [id number] 0P / Stent Eso Gw 22x70 66618-907 - [id number] Implanted:Qty: 1 on 01/21/2008 at OR [facility] [place] N/A: Esophagus ALVEOLUS INC 04/12/2009 90683-035 / / [id number] Depuy Uniplate 32 Implanted:Qty: 1 on 09/05/2008 at OR [facility] [place] N/A: Spine Cervical TAMMY & TAMMY DEPUY 189--302 / / Depuy Uniplate Screw 14mm Implanted:Qty: 2 on 09/05/2008 at OR [facility] [place] N/A: Spine Cervical TAMMY & TAMMY DEPUY 1896--017 / / Depuy Lordotic Bengal Cage Implanted:Qty: 1 on 05/07/2010 at OR [facility] [place] N/A: Neck 1773-06-146 / [id number] / Plate Zach 3 Level Ti 54mm - [id number] Implanted:Qty: 1 on 05/07/2010 at OR [facility] [place] N/A: Neck JNJ : DEPUY SPINE [id number] / / Screw Zach Const St Ti 14mm - [id number] Implanted:Qty: 4 on 05/07/2010 at OR [facility] [place] N/A: Neck JNJ : DEPUY SPINE [id number] 14 / / Screw 3.5x14 Mntr Fa [id number] - [id number] Implanted:Qty: 8 on 05/07/2010 at OR [facility] [place] N/A: Spine Cervical JNJ : ETHICON CARDIOVATIONS [id number] / / Jarrell 3.0b906bl [id number] - [id number] Implanted:Qty: 1 on 05/07/2010 at OR [facility] [place] N/A: Spine Cervical JNJ : ETHICON CARDIOVATIONS [id number] / / Screw Inner Mntr [id number] - [id number] Implanted:Qty: 8 on 05/07/2010 at OR [facility] [place] N/A: Spine Cervical JNJ : ETHICON CARDIOVATIONS [id number] / / Envista Intraocular Lens Implanted:Qty: 1 on 03/10/2022 by Liang Marshall MD at OR [facility] Right: Eye BAUSCH & LOMB 08/13/2023 [id number] / [id number] / [id number] Envista Intraocular Lens Implanted:Qty: 1 on 03/24/2022 by Liang Marshall MD at OR [facility] Left: Eye BAUSCH & LOMB 07/13/2024 [id number] / [id number] / [id number] documented as of this encounter Procedures Procedure Name Priority Date/Time Associated Diagnosis Comments OUTSIDE LAB-PT/INR Routine 10/13/2023 documented in this encounter Results * OUTSIDE LAB-PT/INR (10/13/2023) INR-OUTSIDE LAB 3.37 OUTS [facility] LAB (SEE SCANNED REPORT) History Per Patient LABORATORY OUTSIDE LAB (SEE SCANNED REPORT) documented in this encounter Visit Diagnoses Diagnosis Chronic atrial fibrillation (HCC)- Primary Atrial fibrillation documented in this encounter Advance Directives Documents on File Type Date Recorded Patient Medical Care Evaluation Specialist Expl anation POLST 01/26/2021 [place] [facility] [...] Power of Attor andrew? No Care Teams Corporate 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s Associate Relationship Specialty Start Date End Date Jocelyne Desai DO [address] [place] [address] [place] [phone] PCP - General Internal Medicine 11/09/16 documented as of this encounter
--- OUTSIDE RECORDS SUMMARY | 2023-10-21 16:32 | External Medical Summary | Summary of Care ---
Author Name Unknown Organization [facility] Address [address] [facility] [place] [address] Phone [phone] Care Team Providers Care Child Development Associate Teacher Name Role Phone Jocelyne Desai Primary Care Provider [phone] Reason for Visit * Reason Onset Date Comments Outpatient Testing 10/19/2023 Encounter Details Date Type Department Care Team (Late st Contact Info) Description 10/19/2023 Telephone Nephrology, Cely Zaldivar [address] [place] [address] Jennifer Agustin MD [address] [facility] [place] [address] Outpatient Testing Allergies No known active allergiesdocumented [...] be different from the original. Good connectivity [facility] for wound care [phone] Televideo if needed. Problem Noted Date Diagnosed Date Chronic kidney disease (CKD), stage IV (severe) 09/27/2023 Atrial fibrillation 09/27/2023 SVT (supraventricular tachycardia) 09/27/2023 MRSA (methicillin resistant Staphylococcus aureu s) 06/30/2023 Orthostatic hypotension 06/30/2023 Pressure injury of buttock, stage 2 06/30/2023 Full code status 06/28/2023 Calculus of gallbladder with out cholecystitis without obstruction 06/28/2023 Stasis ulcer 06/28/[address] (myocardial infarction) 11/09/2021 Trigger [...] ICD-10 update of inactive term PLATT RESEARCH OTHER*[id number] 02/20/2007 ADVANCE DIRECTIVE INFORMATION 01/19/2005 Overview: Yes, [...] 11/17/19 23 LUMBAGO 12/24/2002 05/09/2007 LOC PRIM [id number] 12/24/200208/13 DEGENERATIVE SKIN DISORD 12/24/2002 VERTEBRAL FX [...] Encounter - Libby Hurd RN - 10/19/2023 10:20 AM EDT TE with pt who voices that he would not want to have labs done every 7-10 days but will allow testing to be done by tomorrow. Order placed and faxed to office. Spoke withMolly at the office andshe is aware testing to be done tomorrow. * Telephone Encounter - Libby Hurd RN - 10/19/2023 10:20 AM EDT ----- Message from Jennifer Agustin [...] hgb >may need to overbook >recommend CKD pharmacist assistant if able >keep 10/7 appt w/ Marycarmen BANERJEE * Telephone Encounter - Libby Hurd RN - 10/19/2023 10:13 AM EDT ----- Message from Jennifer Agustin [...] hgb >may need to overbook >recommend CKD pharmacist assistant if able >keep 10/7 appt dominic/ Marycarmen BANERJEE documented in this encounter Plan of Treatment Upcoming Encounters Date Type Department Care Team (Late st Contact Info) Description 10/30/2023 6:30 AM EDT [facility] Clinical Pharmacy Services, Ilya Lafleur [address] [place] [address] [place] [address] [place] [address] 11/20/2023 2:00 PM EDT Office Visit Nephrology [address] [place] [address] ZeMarycarmen alan PA-C [address] [place] [address] 01/19/2024 9:00 AM EST Office Visit Gastroenterology [address] [place] [address] Moon Avila, OLEG [address] [place] [address] 02/20/2024 12:30 PM EST Nurse Only Ancillary [address] [place] [address] [place], Nurse [address] [place] [address] 03/08/2024 2:30 PM EST Office Visit Family Medicine [address] [place] [phone] Jocelyne Desai, [address] [place] [address] Scheduled Orders Name Type Priority Associated Diagnoses Orde r Schedule BASIC METABOLIC PANEL Lab Routine Chronic kidney disease (CKD), stage IV (severe) (HCC) 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 chronic kidney disease (HCC) Expected: 10/19/2023, Expires: 10/18/2024 HGB Lab Routine Chronic kidney disease (CKD), stage IV (severe) (HCC) 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 chronic kidney disease (HCC) Expected: 10/19/2023, Expires: 10/18/2024 Scheduled Procedures Name Priority Associated Diagnoses Date/Ti me COLONOSCOPY FLEXIBLE PROXIMA L DIAGNOSTIC Recall Screening for colon cancer Health Maintenance Due Date Last Done Comments Cologuard 1997 Sigmoidoscopy 1997 Fecal Occult Blood Test 09/02/2009 09/02/2008, 05/04 Diabetic Eye Exam 12/30/2022 12/30/2021, , 12/28/2021, Additional history exists COVID-19 Vaccine (7 - 2023-24 season) 2023 11/16/2022, 11/16/2021, 02/16/2021, Additional history exists Influenza Vaccine (FLU shot) (#1) 2023 11/16/2022, 11/09/2021, 10/16/2020, Additional history exists Diabetic Foot Exam 11/17/2023 11/16/2022, 0 05/05/2021, 11/22/2017, Additional history exists Adult Wellness Visit 02/17/2024 02/16/2023, 02/09/2022, 02/08/2021 Depression Screening 02/17/2024 02/16/2023 HbA1c 02/23/2024 08/23/2023, 05/2022, 11/09/2022, Additional history exists GFR 04/03/2024 10/02/2023, 0804/2023, 09/04/2023, Additional history exists Albumin/Creatinine Ratio 07/17/2024 [...] this encounter Medical Devices Implanted Type Area Clinical Trial Data Manager Device Identifier Shelf Expiration Date Model / Serial / Lot Shaft Fibula 6cm [id number] - [id number] Implanted:Qty: 1 on 09/05/2008 at OR [facility] [place] Tissue - Human N/A: Spine Cervical MUSCULOSKELETAL TRANSPLANT FND 04/20/2010 [id number] / [id number] 0P / Stent Eso Gw 22x70 13123-714 - [id number] Implanted:Qty: 1 on 01/21/2008 at OR [facility] [place] N/A: Esophagus ALVEOLUS INC 04/12/2009 77603-182 / / [id number] Depuy Uniplate 32 Implanted:Qty: 1 on 09/05/2008 [...] [place]/A: Neck 1773-06-146 / [id number] / Plate Zach 3 Level Ti 54mm - [id number] Implanted:Qty: 1 on 05/07/2010 at OR [facility] [place] N/A: Neck JNJ : DEPUY SPINE [id number] / / Screw Zach Const St Ti 14mm - [id number] Implanted:Qty: 4 on 05/07/2010 at OR [facility] [place] N/A: Neck JNJ : DEPUY SPINE [id number] 14 / / Screw 3.5x14 Mntr Fa [id number] - [id number] Implanted:Qty: 8 on 05/07/2010 at OR [facility] [place] N/A: Spine Cervical JNJ : ETHICON CARDIOVATIONS [id number] / / Jarrell [id number] - [id number] Implanted:Qty: 1 on 05/07/2010 at OR [facility] [place] N/A: Spine Cervical JNJ : ETHICON CARDIOVATIONS [id number] / / Screw Inner Mntr [id number] - [id number] Implanted:Qty: 8 on 05/07/2010 at OR [facility] [place] N/A: Spine Cervical JNJ : ETHICON CARDIOVATIONS [id number] / / Envista Intraocular Lens Implanted:Qty: 1 on 03/10/2022 by Liang Marshall MD at OR [facility] Right: Eye BAUSCH & LOMB 08/13/2023 [id number] / [id number] / [id number] Envista Intraocular Lens Implanted:Qty: 1 on 03/24/2022 by Liang Marshall MD at OR [facility] Left: Eye BAUSCH & LOMB 07/13/2024 [id number] / [id number] / [id number] documented as of this encounter Visit Diagnoses Diagnosis Chronic kidney disease (CKD), stage IV (severe) (HCC)- Primary Chronic kidney disease, Stage IV (severe) 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 chronic kidney disease (HCC) documented in this encounter Advance Directives Documents on File Type Date Recorded Patient Anger Control Counselor Expl anation POLST 01/26/2021 [place] [facility] [...] Power of Attor andrew? No Care Teams Child Development Associate Teacher Relationship Specialty Start Date End Date Jocelyne Desai DO [address] [place] [address] [place] [phone] PCP - General Internal Medicine 11/09/16 documented as of this encounter
--- OUTSIDE RECORDS SUMMARY | 2023-10-21 16:33 | External Medical Summary | Summary of Care ---
Author Name Unknown Organization [facility] Address [address] [facility] [place] [address] Phone [phone] Care Team Providers Care Hide Measuring Machine Operator Name Role Phone Jocelyne Desai DO Primary Care Provider [phone] Encounter Details Date Type Department Care Team (Late st Contact Info) Description 10/10/2023 Population Health External Data Unspecified Department Allergies No known active allergiesdocumented as of this encounter (statuses as of 10/10/2023) Medications Medication Sig Dispensed Refills Start Date [...] as of this encounter (statuses as of 10/10/2023) Active Problems Patient Care Coordination No te Formatting of this note migh t be different from the original. Good connectivity [facility] for wound care [phone] Televideo if needed. Problem Noted Date Diagnosed [...] up with podiatry,. Letter in chart from [facility] podiatry they were unable [...] ICD-10 update of inactive term PLATT RESEARCH OTHER*[id number] 02/20/2007 ADVANCE DIRECTIVE INFORMATION 01/19/2005 Overview: Yes, Patient instructed to provide copy of advance directive for provider to review and to be scanned into Electronic Medical Record No, Advance Directive brochure given to patient at prior appointment. SPINAL STENOSIS-LUMBAR 09/23/2002 Vitamin D deficiency Cervical spinal stenosis documented as of this encounter (statuses as of 10/10/2023) Resolved Problems Problem Noted Date Diagnosed Date [...] 11/17/19 23 LUMBAGO 12/24/2002 05/09/2007 LOC PRIM [id number] 12/24/200208/13 DEGENERATIVE SKIN DISORD 12/24/2002 VERTEBRAL FX [...] as of this encounter (statuses as of 10/10/2023) Immunizations Name Administration Dates Next Due COVID-19 [...] 02/16/2023 Does the household have a re gular source of income? (Household - for ages [...] Team (Late st Contact Info) Description 10/13/2023 6:15 PM EDT Anticoagulation [facility]ized Clinical [facility] Services, Ilya Lafleur [address] [place] [address] [place] [address] [place] [address] 11/20/2023 2:00 PM EDT Office Visit Nephrology [address] [place] [address] ZemaMarycarmen lindsey PA-C 200 [facility] [place] [address] 01/19/2024 9:00 AM EST Office Visit Gastroenterology [address] [place] [address] Moon Avila, OLEG [address] [place] [address] 02/20/2024 12:30 PM EST Nurse Only Ancillary [address] [place] [address] [place], Nurse Annual Wellness [address] [place] [address] [place] [address] 03/08/2024 2:30 PM EST Office Visit Family Medicine [address] [place] [phone] Jocelyne Desai, [address] [place] [address] Scheduled Procedures Name Priority Associated Diagnoses Date/Ti [...] this encounter Medical Devices Implanted Type Area Magnetic Prospecting Operator Device Identifier Shelf Expiration Date Model / Serial / Lot Shaft Fibula 6cm [id number] - [id number] Implanted:Qty: 1 on 09/05/2008 [place] [facility] [place] - Human N/A: Spine Cervical MUSCULOSKELETAL TRANSPLANT FND 04/20/2010 [id number] / [id number] 0P / Stent Eso Gw 22x70 [id number] - [id number] Implanted:Qty: 1 on 01/21/2008 at [place] [facility] [place] N/A: Esophagus [employer]US INC 04/12/2009 35816-710 / / [id number] Depuy Uniplate 32 Implanted:Qty: 1 on 09/05/2008 [...] Plate Zach 3 Level Ti 54mm - [id number] Implanted:Qty: 1 on 05/07/2010 at [place] [facility] N/A: Neck JNJ : DEPUY SPINE [id number] 54 / / Screw Zach Const St Ti 14mm - [id number] Implanted:Qty: 4 on 05/07/2010 at [place] [facility] N/A: Neck JNJ : DEPUY SPINE [id number] 14 / / Screw 3.5x14 Mntr Fa [id number] - [id number] Implanted:Qty: 8 on 05/07/2010 at [place] [facility] N/A: Spine Cervical JNJ : ETHICON CARDIOVATIONS [id number] / / Jarrell [id number] - [id number] Implanted:Qty: 1 on 05/07/2010 at [place] [facility] N/A: Spine Cervical JNJ : ETHICON CARDIOVATIONS [id number] / / Screw Inner Mntr [id number] - [id number] Implanted:Qty: 8 on 05/07/2010 at [place] [facility] N/A: Spine Cervical JNJ : ETHICON CARDIOVATIONS [id number] / / Envista Intraocular Lens Implanted:Qty: 1 on 03/10/2022 by Liang Marshall MD at [place] [facility] Right: Eye BAUSCH & LOMB 08/13/2023 [id number] / [id number] / [id number] Envista Intraocular Lens Implanted:Qty: 1 on 03/24/2022 by Liang Marshall MD at OR [facility] Left: Eye BAUSCH & LOMB 07/13/2024 [id number] / [id number] / [id number] documented as of this encounter Advance Directives Documents on File Type Date Recorded Patient Scratcher Tender Expl anation POLST 01/26/2021 [place] OR [facility] FOR [...] Power of Attor andrew? No Care Teams Hide Measuring Machine Operator Relationship Specialty Start Date End Date Jocelyne Desai DO [address] [place] [address] [place] [address] PCP - General Internal Medicine 11/09/16 documented as of this encounter
--- OUTSIDE RECORDS SUMMARY | 2023-10-21 16:33 | External Medical Summary | Summary of Care ---
Author Name Unknown Organization [facility] Address [address] [facility] [place] [address] Phone [phone] Care Team Providers Care Army Manager Name Role Phone Jocelyne Desai Primary Care Provider [phone] Reason for Visit * Reason Onset Date Comments Home Health 10/03/2023 Encounter Details Date Type Department Care Team (Late st Contact Info) Description 10/03/2023 Telephone Nephrology, Cely Zaldivar 200 [facility] [place] [address] Jennifer Agustin MD 200 [facility] [place] [address] Home Health Allergies No known active allergiesdocumented as of this encounter (statuses as of 10/05/2023) Medications Medication Sig Dispensed Refills Start Date [...] as of this encounter (statuses as of 10/05/2023) Active Problems Patient Care Coordination No te Formatting of this note migh t be different from the original. Good connectivity [facility] for wound care [phone] Televideo if needed. 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 SPINAL STENOSIS-LUMBAR 09/23/2002 Vitamin D deficiency Cervical spinal stenosis documented as of this encounter (statuses as of 10/05/2023) Resolved Problems Problem Noted Date Diagnosed Date [...] 11/17/19 23 LUMBAGO 12/24/2002 05/09/2007 LOC PRIM [id number] 12/24/200208/13 DEGENERATIVE SKIN DISORD 12/24/2002 VERTEBRAL FX [...] as of this encounter (statuses as of 10/05/2023) Immunizations Name Administration Dates Next Due COVID-19 [...] No 02/16/2023 Does the household have a [facility] source of income? (Household - for ages [...] Telephone Encounter - Marisela Peraza LPN - 10/05/2023 4:26 PM EDT Anabelle is aware will repeat next week as PCP had ordered 10/02/23 * Telephone Encounter - Jennifer Agustin MD - 10/05/2023 3:59 PM EDT OK to do labs q 7-10 days instead of q4 day * Telephone Encounter - Zahra Morillo LPN - 10/03/2023 10:08 AM EDT KWAME Ahn calling from [facility]. Patient recently had CBC and CMP done on 10/02/2023 by PCP, Anabelle stated that they have orders for patient to have these same labs drawn on 10/06/2023 from Nephrology and asking if they need to be drawn again? Please advise and call Anabelle back at [phone] documented in this encounter Plan of Treatment Upcoming Encounters Date Type Department Care Team (Late st Contact Info) Description 10/09/2023 6:30 AM EDT Anticoagulation Centralized Clinical Pharmacy Services, Ilya Lafleur [address] [place] [address] [place] [address] [facility], [address] [place] [address] 11/20/2023 2:00 PM EDT Office Visit Nephrology [address] [place] [address] ZeMarycarmen alan PA-C 200 [facility] [place] [address] 01/19/2024 9:00 AM EST Office Visit Gastroenterology [address] [place] [address] Moon Avila CRNP [address] [place] [address] 02/20/2024 12:30 PM EST Nurse Only Ancillary [address] [place] [address] [place], Nurse [address] [place] [address] 03/08/2024 2:30 PM EST Office Visit Family Medicine [address] [place] [phone] [place] [address] Scheduled Procedures Name Priority Associated Diagnoses Date/Ti [...] 11/09/2022, Additional history exists GFR 04/03/2024 10/02/2023, 08/04/2023, 09/04/2023, Additional history exists Albumin/Creatinine Ratio 07/17/2024 024, 11/16/2022, 05/13/2022, Additional history exists DTaP,Tdap,and Td Vaccines (3 [...] this encounter Medical Devices Implanted Type Area Government Operations Consultant Device Identifier Shelf Expiration Date Model / Serial / Lot Shaft Fibula 6cm [id number] - [id number] [place]planted:Qty: 1 [place] 09/05/2008 [place] [facility] [place] - Human N/A: Spine Cervical MUSCULOSKELETAL TRANSPLANT FND 04/20/2010 720768 / [id number] 0P / Stent Eso Gw 22x70 10971-988 - [id number] Implanted:Qty: 1 on 01/21/2008 [place] [facility] [place]/A: Esophagus ALVEOLUS INC 04/12/2009 88901-554 / / [id number] Depuy Uniplate 32 Implanted:Qty: 1 on 09/05/2008 [place] [facility] [place]/A: Spine Cervical TAMMY & TAMMY DEPUY 1897-02-302 / / Depuy Uniplate Screw 14mm Implanted:Qty: 2 on 09/05/2008 [place] [facility]/A: Spine Cervical TAMMY & TAMMY DEPUY 1897-06-017 / / Depuy Lordotic Bengal Cage Implanted:Qty: 1 on 05/07/2010 at [place] [facility] [place]/A: Neck 1773-06-146 / 1773-06-146 / Plate Zach 3 Level Ti 54mm - [id number] Implanted:Qty: 1 on 05/07/2010 [place] [facility]/A: Neck JNJ : DEPUY SPINE [id number] 54 / / Screw Zach Const St Ti 14mm - [id number] Implanted:Qty: 4 on 05/07/2010 [place] [facility]/A: Neck JNJ : DEPUY SPINE [id number] 14 / / Screw 3.5x14 Mntr Fa [id number] - [id number] Implanted:Qty: 8 on 05/07/2010 [place] [facility] [place]/A: Spine Cervical JNJ : ETHICON CARDIOVATIONS [id number] / / Jarrell [id number] - [id number] Implanted:Qty: 1 on 05/07/2010 [place] [facility] [place]/A: Spine Cervical JNJ : ETHICON CARDIOVATIONS [id number] / / Screw Inner Mntr [id number] - [id number] Implanted:Qty: 8 on 05/07/2010 [place] [facility] [place]/A: Spine Cervical JNJ : ETHICON CARDIOVATIONS [id number] / / Envista Intraocular Lens Implanted:Qty: 1 on 03/10/2022 by Liang Marshall MD at OR [facility] Right: Eye BAUSCH & LOMB 08/13/2023 [id number] / [id number] / [id number] Envista Intraocular Lens Implanted:Qty: 1 on 03/24/2022 by Liang Marshall MD at OR [facility] Left: Eye BAUSCH & LOMB 07/13/2024 [id number] / [id number] / [id number] documented as of this encounter Advance Directives Documents on File Type Date Recorded Patient Corporate Securities Research Analyst Expl anation POL 01/26/2021 [place] OR [facility] FOR LIFE-SUSTAINING TREATMENT * [...] Power of Attor andrew? No Care Teams Army Manager Relationship Specialty Start Date End Date Jocelyne Desai DO [address] [place] [address] [place] [address] PCP - General Internal Medicine 11/09/16 documented as of this encounter
--- OUTSIDE RECORDS SUMMARY | 2023-10-21 16:33 | External Medical Summary | Summary of Care ---
Author Name Unknown Organization [facility] Address [address] [facility] [place] [address] Phone [phone] Care Team Providers Care Car Dumper Name Role Phone Desai Jocelyne Briggs DO Primary Care Provider [phone] Reason for Visit * Reason Comments Dosage Adjustment Via Phone (anticoag Cl inic) Encounter Details Date Type Department Care Team (Late st Contact Info) Description 10/13/2023 6:15 PM EDT Anticoagulation Centralized Clinical Pharmacy Services, Ilya Lafleur [address] [place] [address] [place] [address] [facility], [address] [place] [address] Chronic atrial fibrillation (HCC)* Allergies No known active allergiesdocumented as of this encounter (statuses as of 10/13/2023) Medications Medication Sig Dispensed Refills Start Date [...] as of this encounter (statuses as of 10/13/2023) Active Problems Patient Care Coordination No te Formatting of this note migh t be different from the original. Good connectivity [facility] for wound care [phone] Televideo if needed. Problem Noted Date Diagnosed [...] ICD-10 update of inactive term PLATT RESEARCH OTHER*[id number] 02/20/2007 ADVANCE DIRECTIVE INFORMATION 01/19/2005 Overview: Yes, Patient instructed to provide copy of advance directive for provider to review and to be scanned into Electronic Medical Record No, Advance Directive brochure given to patient at prior appointment. SPINAL STENOSIS-LUMBAR 09/23/2002 Vitamin D deficiency Cervical spinal stenosis documented as of this encounter (statuses as of 10/13/2023) Resolved Problems Problem Noted Date Diagnosed Date Resolved Date Depression, unspecified 11/09/2021/2 Depression, unspecified 11/09/202105/2022 Cellulitis of right leg 07/13/202105/2022 Last Assessment & Plan: Suspect this could be early/localized. Will treat with 7 days antibiotic. If pt cannot be reassess by Dr. Braxton office early next week will need [facility] provider recheck Multiple and open [...] 11/17/19 23 LUMBAGO 12/24/2002 05/09/2007 LOC PRIM [id number] 12/24/200208/13 DEGENERATIVE SKIN DISORD 12/24/2002 VERTEBRAL FX [...] as of this encounter (statuses as of 10/13/2023) Immunizations Name Administration Dates Next Due COVID-19 [...] No 02/16/2023 Does the household have a [facility] source of income? (Household - for [...] Progress Notes * Estefania Palacios RPh - 10/13/2023 3:49 PM EDT INR not yet received. Will follow up Tues for result. Estefania Palacios Rph, Pharm.D. Clinical Pharmacist [facility] ([facility]) [phone] 10/13/2023,3:49 PM * Madai Perera store loss prevention manager - 10/13/2023 3:36 PM EDT Called and spoke with Alma at [facility], results have not yet come back. Please advise. Spoke with Sofie at [facility], specimen has arrived at the lab. But they don't have an order for the PTINR, please fax order to [phone] ([facility]). Thank you, Madai Perera Electoral Officer [facility] ([facility]) 10/13/2023, 3:37 PM * Korin Meléndez PHARM Tech - 10/13/2023 2:27 PM EDT Spoke with Shanti @ [facility]. Pt is scheduled to be seen today and have his INR drawn. Called [facility] lab and they have not yet received a specimen for pt. Will continue to monitor for result. Thank you, Korin Meléndez Electoral Officer [facility] ([facility]) [phone] 10/13/2023,2:28 PM documented in this encounter Plan of Treatment Upcoming Encounters Date Type Department Care Team (Late st Contact Info) Description 10/17/2023 6:30 AM EDT Anticoagulation Centralized Clinical Pharmacy Services, Ilya Lafleur [address] [place] [address] [place] [address] [facility], [address] [place] [address] 11/20/2023 2:00 PM EDT Office Visit Nephrology [address] [place] [address] Marycarmen Kowalski PA-C [address] [place] [address] [place] [address] 01/19/2024 9:00 AM EST Office Visit Gastroenterology [address] [place] [address] Moon Avila CRNP [address] [place] [address] 02/20/2024 12:30 PM EST Nurse Only Ancillary [address] [place] [address] [place], Nurse Annual Wellness [address] [place] [address] [place] [address] 03/08/2024 2:30 PM EST Office Visit Family Medicine [address] [place] [phone] Jocelyne Desai, [address] [place] [address] Scheduled Procedures Name Priority Associated Diagnoses Date/Ti [...] this encounter Medical Devices Implanted Type Area Bed Rubber Device Identifier Shelf Expiration Date Model / Serial / Lot Shaft Fibula 6cm [id number] - [id number] [place]planted:Qty: 1 [place] [facility] [place] N/A: Spine Cervical MUSCULOSKELETAL TRANSPLANT FND 04/20/2010 [id number] / [id number] 0P / Stent Eso Gw 22x70 71225-982 - [id number] Implanted:Qty: 1 on 01/21/2008 [place] [facility] [place]A: Esophagus ALVEOLUS INC 04/12/2009 88956-020 / / [id number] Depuy Uniplate 32 Implanted:Qty: 1 on 09/05/2008 [place] [facility] [place]: Spine Cervical TAMMY & TAMMY DEPUY 1897-02-302 / / Depuy Uniplate Screw 14mm Implanted:Qty: 2 on 09/05/2008 [place] [facility] [place]: Spine Cervical TAMMY & TAMMY DEPUY 1897--017 / / Depuy Lordotic Bengal Cage Implanted:Qty: 1 on 05/07/2010 [place] [facility] [place]A: Neck 1773-06-146 / 1773-06-146 / Plate Zach 3 Level Ti 54mm - [id number] Implanted:Qty: 1 on 05/07/2010 [place] [facility] [place]: Neck JNJ : DEPUY SPINE [id number] 54 / / Screw Zach Const St Ti 14mm - [id number] Implanted:Qty: 4 on 05/07/2010 [place] [facility] [place]A: Neck JNJ : DEPUY SPINE [id number] 14 / / Screw 3.5x14 Mntr Fa [id number] - [id number] Implanted:Qty: 8 on 05[place]07/2010 [place] [facility] [place]: Spine Cervical JNJ : ETHICON CARDIOVATIONS [id number] / / Jarrell [id number] - [id number] Implanted:Qty: 1 on 05/07/2010 [place] [facility] [place]: Spine Cervical JNJ : ETHICON CARDIOVATIONS [id number] / / Screw Inner Mntr [id number] - [id number] Implanted:Qty: 8 on 05/07/2010 [place] [facility] [place]A: Spine Cervical JNJ : ETHICON CARDIOVATIONS [id number] / / Envista Intraocular Lens Implanted:Qty: 1 on 03/10/2022 by Liang Marshall MD at OR [facility] Right: Eye BAUSCH & LOMB 08/13/2023 [id number] / [id number] / [id number] Envista Intraocular Lens Implanted:Qty: 1 on 03/24/2022 by Liang Marshall MD at OR [facility] Left: Eye BAUSCH & LOMB 07/13/2024 [id number] / [id number] / [id number] documented as of this encounter Visit Diagnoses Diagnosis Chronic atrial fibrillation (HCC)- Primary Atrial fibrillation documented in this encounter Advance Directives Documents on File Type Date Recorded Patient Contact Center Specialist Expl anation POLST 01/26/2021 [place] OR [facility] FOR LIFE-SUSTAINING [...] Power of Attor andrew? No Care Teams Car Dumper Relationship Specialty Start Date End Date Jocelyne Desai DO [address] [place] [address] [place] [address] PCP - General Internal Medicine 11/09/16 documented as of this encounter
--- OUTSIDE RECORDS SUMMARY | 2023-10-21 16:33 | External Medical Summary | Summary of Care ---
Author Name Unknown Organization [facility] Address [address] [facility] [place] [address] Phone [phone] Care Team Providers Care County Nurse Name Role Phone Desai Jocelyne Briggs DO Primary Care Provider + [phone] Reason for Visit * Reason Comments Dosage Adjustment Via Phone (anticoag Cl inic) Encounter Details Date Type Department Care Team (Late st Contact Info) Description 10/09/2023 6:15 PM EDT Anticoagulation Central[facility] Clinical [facility] Services, Ilya Lafleur [address] [place] [address] [place] [address] [facility], [address] [place] [address] Chronic atrial fibrillation (HCC)* Allergies No known active allergiesdocumented as of this encounter (statuses as of 10/09/2023) Medications Medication Sig Dispensed Refills Start Date [...] as of this encounter (statuses as of 10/09/2023) Active Problems Patient Care Coordination No te Formatting of this note migh t be different from the original. Good connectivity [facility] for wound care [phone] Televideo if needed. Problem Noted Date Diagnosed [...] up with podiatry,. Letter in chart from [facility] podiatry they were unable to [...] ICD-10 update of inactive term PLATT RESEARCH OTHER*[id number] 02/20/2007 ADVANCE DIRECTIVE INFORMATION 01/19/2005 Overview: Yes, Patient instructed to provide copy of advance directive for provider to review and to be scanned into Electronic Medical Record No, Advance Directive brochure given to patient at prior appointment. SPINAL STENOSIS-LUMBAR 09/23/2002 Vitamin D deficiency Cervical spinal stenosis documented as of this encounter (statuses as of 10/09/2023) Resolved Problems Problem Noted Date Diagnosed Date [...] 11/17/19 23 LUMBAGO 12/24/2002 05/09/2007 LOC PRIM [id number] 12/24/200208/13 DEGENERATIVE SKIN DISORD 12/24/2002 VERTEBRAL FX [...] as of this encounter (statuses as of 10/09/2023) Immunizations Name Administration Dates Next Due COVID-19 [...] Progress Notes * Estefania Palacios, [facility] - 10/09/2023 2:19 PM EDT Medication Therapy Disease Management - Anticoagulation Patient: Lg Cooley | : 1950 Subjective Patient-Reported Symptoms: INR not drawn today as planned. Per HH will be drawn on 10/12 Objective Current Warfarin Dose As of 10/09/2023 Warfarin maintenance plan: 3 mg (3 mg x 1) every Tue, Mariel; 1.5 mg (3 mg x 0.5) all other days INR Result As of 10/09/2023 INR goal: 2.0-3.0 INR used for dosing: No new INR was available at the time of this encounter. Assessment & Plan Warfarin Plan As of 10/09/2023 Full warfarin instructions: 3 mg every Tue, Mariel; 1.5 mg all other days Next INR check: 10/13/2023 Repeat PT/INR in 5 day(s) Weekly dose: not changed Additional Dosing Information: Description [facility] Nurses -- Mondays and Fridays ; fax - [phone] ([facility]) Estefania Palacios [facility] Clinical Pharmacist 10/09/2023, 2:19 PM * Korin Meléndez corner former - 10/09/2023 1:44 PM EDT Spoke to Shanel @ [facility]. She states they did not get a new order after pts last INR. He is scheduled to be seen again on 10/12 and they will draw it then. Please fax new order. F/U call scheduled for 10/12. Thank you, Korin Meléndez Capsule Maker [facility] ([facility]) [phone] 10/09/2023,1:44 PM documented in this encounter Plan of Treatment Upcoming Encounters Date Type Department Care Team (Late st Contact Info) Description 10/13/2023 6:15 PM EDT Anticoagulation Centralized Clinical Pharmacy Services, Ilya Lafleur [address] [place] [address] [place] [address] [facility], [address] [place] [address] 11/20/2023 2:00 PM EDT Office Visit Nephrology [address] [place] [address] Marycarmen Kowalski PA-C [address] [facility] [place] [address] 01/19/2024 9:00 AM EST Office Visit Gastroenterology [address] [place] [address] Moon Avila, GAS METER MECHANIC [address] [place] [address] 02/20/2024 12:30 PM EST Nurse Only Ancillary [address] [place] [address] [place], Nurse Annual [address] [place] [address] 03/08/2024 2:30 PM EST Office Visit Family Medicine [address] [place] [phone] Jocelyne Desai[address] [place] [address] Scheduled Procedures Name Priority Associated Diagnoses Date/Ti [...] this encounter Medical Devices Implanted Type Area Steamboat Pilot Device Identifier Shelf Expiration Date Model / Serial / Lot Shaft Fibula 6cm [id number] - [id number] Implanted:Qty: 1 on 09/05/2008 [place] [facility] [place] - Human N/A: Spine Cervical MUSCULOSKELETAL TRANSPLANT FND 04/20/2010 [id number] / [id number] 0P / Stent Eso Gw 22x70 54071-548 - [id number] Implanted:Qty: 1 on 01/21/2008 at [place] [facility] [place] N/A: Esophagus [employer] 04/12/2009 87784-831 / / [id number] Depuy Uniplate 32 Implanted:Qty: 1 on 09/05/2008 at [place] [facility] [place] N/A: Spine Cervical TAMMY & TAMMY DEPUY 1897-02-302 / / Depuy Uniplate Screw 14mm Implanted:Qty: 2 on 09/05/2008 at [place] [facility] [place] N/A: Spine Cervical TAMMY & TAMMY DEPUY 1897-06-017 / / Depuy Lordotic Bengal Cage Implanted:Qty: 1 on 05/07/2010 at [place] [facility] [place] N/A: Neck 1773-06-146 / 1773-06-146 / Plate Zach 3 Level Ti 54mm - [id number] Implanted:Qty: 1 on 05/07/2010 at [place] [facility] [place] N/A: Neck JNJ : DEPUY SPINE [id number] / / Screw Zach Const St Ti 14mm - [id number] Implanted:Qty: 4 on 05/07/2010 at [place] [facility] [place] N/A: Neck JNJ : DEPUY SPINE [id number] 14 / / Screw 3.5x14 Mntr Fa [id number] - [id number] Implanted:Qty: 8 on 05/07/2010 at [place] [facility] [place] N/A: Spine Cervical JNJ : ETHICON CARDIOVATIONS [id number] / / Jarrell [id number] - [id number] Implanted:Qty: 1 on 05/07/2010 at [place] [facility] [place] N/A: Spine Cervical JNJ : ETHICON CARDIOVATIONS [id number] / / Screw Inner Mntr [id number] - [id number] Implanted:Qty: 8 on 05/07/2010 at [place] [facility] [place] N/A: Spine Cervical JNJ : ETHICON CARDIOVATIONS [id number] / / Envista Intraocular Lens Implanted:Qty: 1 on 03/10/2022 by Liang Marshall MD at OR [facility] Right: Eye BAUSCH & LOMB 08/13/2023 [id number] / [id number] / [id number] Envista Intraocular Lens Implanted:Qty: 1 on 03/24/2022 by Liang Marshall MD at OR [facility] Left: Eye BAUSCH & LOMB 07/13/2024 [id number] / [id number] / [id number] documented as of this encounter Visit Diagnoses Diagnosis Chronic atrial fibrillation (HCC)- Primary Atrial fibrillation documented in this encounter Advance Directives Documents on File Type Date Recorded Patient Software Configuration Specialist Expl anation POLST 01/26/[address] [place] [address] [facility] FOR LIFE-SUSTAINING TREATMENT * No [...] Power of Attor andrew? No Care Teams County Nurse Relationship Specialty Start Date End Date Jocelyne Desai DO [address] [place] [address] [place] [address] PCP - General Internal Medicine 11/09/16 documented as of this encounter"
--- OUTSIDE RECORDS SUMMARY | 2023-10-21 16:33 | External Medical Summary | Summary of Care ---
Author Name Unknown Organization [facility] Address [address] [place] [address] Phone [phone] Care Team Providers Care Table Attendant Name Role Phone Jocelyne Desai Primary Care Provider + [phone] Reason for Visit * Reason Onset Date Comments Fax 10/03/2023 Encounter Details Date Type Department Care Team (Late st Contact Info) Description 10/03/2023 Telephone Nephrology, [address] [address] Services, Scheduling [address] [place] [address] Fax Allergies No known active allergiesdocumented as of this encounter (statuses as of 10/03/2023) Medications Medication Sig Dispensed Refills Start Date [...] as of this encounter (statuses as of 10/03/2023) Active Problems Patient Care Coordination No te Formatting of this note migh t be different from the original. Good connectivity [facility] for wound care [phone] Televideo if needed. Problem Noted Date Diagnosed [...] up with podiatry,. 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 SPINAL STENOSIS-LUMBAR 09/23/2002 Vitamin D deficiency Cervical spinal stenosis documented as of this encounter (statuses as of 10/03/2023) Resolved Problems Problem Noted Date Diagnosed Date Resolved Date Depression, unspecified 11/09/2021/ Depression, unspecified 11/09/202105/2022 Cellulitis of right leg 07/13/202105/2022 Last Assessment & Plan: Suspect this could be early/localized. Will treat with 7 days antibiotic. If pt cannot be reassess by Dr. Braxton office early next week will need [facility] provider recheck Multiple and open wound [...] 02/27/2003 11/17/19 LUMBAGO 12/24/2002 05/09/2007 LOC PRIM [id number] 12/24/200208/13 DEGENERATIVE SKIN DISORD 12/24/2002 VERTEBRAL FX [...] as of this encounter (statuses as of 10/03/2023) Immunizations Name Administration Dates Next Due COVID-19 [...] No 02/16/2023 Does the household have a [facility] source [facility] income? (Household - for ages [...] encounter Miscellaneous Notes * Telephone Encounter - Jenna Olivera OSA - 10/03/2023 11:25 AM EDT Lacy from [facility] on the line, she stated that she they are missing 's signatureon three orders from August. One from August 24, September 03 and September 05. Please sign and fax back to [phone]. Thank you documented in this encounter Plan of Treatment Upcoming Encounters Date Type Department Care Team (Late st Contact Info) Description 10/09/2023 6:30 AM EDT Anticoagulation Centralized Clinical Pharmacy Services, Ilya Lafleur [address] [place] [address] [place] [address] [facility], [address] [place] [address] 11/20/2023 2:00 PM EDT Office Visit Nephrology [address] [place] [address] Zemait[place], Marycarmen Dill PA-C [address] [place] [address] 01/19/2024 9:00 AM EST Office Visit Gastroenterology [address] [place] [address] Moon Avila CRNP [address] [place] [address] 02/20/2024 12:30 PM EST Nurse Only Ancillary [address] [place] [address] [place], Nurse [address] [place] [address] 03/08/2024 2:30 PM EST Office Visit Family Medicine [address] [place] [phone] Jocelyne Desai[address] [place] [address] Scheduled Procedures Name Priority Associated Diagnoses Date/Ti me COLONOSCOPY FLEXIBLE PROXIMA L DIAGNOSTIC Recall Screening for colon cancer Health Maintenance Due Date Last Done Comments Cologuard 1997 Sigmoidoscopy 1997 Fecal Occult Blood Test 09/02/2009 09/02/2008, 05/04 Diabetic Eye Exam 12/30/2022 12/30/2021, , 12/28/2021, Additional history exists COVID-19 Vaccine (7 season) 2023 11/16/2022, 11/16/2021, 02/16/2021, Additional history [...] this encounter Medical Devices Implanted Type Area Electrical Equipment Tester Device Identifier Shelf Expiration Date Model / Serial / Lot Shaft Fibula 6cm [id number] - [id number] Implanted:Qty: 1 on 09/05/2008 at [place] [facility] [place] Tissue - Human N/A: Spine Cervical MUSCULOSKELETAL TRANSPLANT FND 04/20/2010 [id number] / [id number] 0P / Stent Eso Gw 22x70 71312-965 - [id number] Implanted:Qty: 1 on 01/21/2008 at OR [facility] [place] N/A: Esophagus AL[employer]OLUS INC 04/12/2009 04476-836 / / [id number] Depuy Uniplate 32 Implanted:Qty: 1 on 09/05/2008 at OR [facility] [place] N/A: Spine Cervical TAMMY & TAMMY DEPUY 1897-02-302 / / Depuy Uniplate Screw 14mm Implanted:Qty: 2 on 09/05/2008 at OR [facility] [place] N/A: Spine Cervical TAMMY & TAMMY DEPUY 1897-06-017 / / Depuy Lordotic Bengal Cage Implanted:Qty: 1 on 05/07/2010 at OR [facility] [place] N/A: Neck 1773--146 / [id number] / Plate Zach 3 Level Ti 54mm - [id number] Implanted:Qty: 1 on 05/07/2010 at OR [facility] [place] N/A: Neck JNJ : DEPUY SPINE [id number] 54 / / Screw Zach Const St Ti 14mm - [id number] Implanted:Qty: 4 on 05/07/2010 at OR [facility] [place] N/A: Neck JNJ : DEPUY SPINE [id number] 14 / / Screw 3.5x14 Mntr Fa [id number] - [id number] Implanted:Qty: 8 on 05/07/2010 at OR [facility] [place] N/A: Spine Cervical JNJ : ETHICON CARDIOVATIONS [id number] / / Jarrell [id number] - [id number] Implanted:Qty: 1 on 05/07/2010 at [place] [facility] [place] N/A: Spine Cervical JNJ : ETHICON CARDIOVATIONS [id number] / / Screw Inner Mntr [id number] - [id number] Implanted:Qty: 8 on 05/07/2010 at [place] [facility] [place] N/A: Spine Cervical JNJ : ETHICON CARDIOVATIONS [id number] / / Envista Intraocular Lens Implanted:Qty: 1 on 03/10/2022 by Liang Marshall MD at OR [facility] Right: Eye BAUSCH & LOMB 08/13/2023 [id number] / [id number] / [id number] Envista Intraocular Lens Implanted:Qty: 1 on 03/24/2022 by Liang Marshall MD at OR [facility] Left: Eye BAUSCH & LOMB 07/13/2024 [id number] / [id number] / [id number] documented as of this encounter Advance Directives Documents on File Type Date Recorded Patient Roll Plugger Expl anation POLST 01/26/2021 [place] OR [facility] FOR LIFE-SUSTAINING TREATMENT * No [...] Power of Attor andrew? No Care Teams Table Attendant Relationship Specialty Start Date End Date Jocelyne Desai DO NPI: [id number] [place] [address] [place] [address] PCP - General Internal Medicine 11/09/16 documented as of this encounter
--- OUTSIDE RECORDS SUMMARY | 2023-10-21 16:33 | External Medical Summary | Summary of Care ---
Author Name Unknown Organization [facility] Address [address] [place] [address] Phone [phone] Care Team Providers Care Game Trapper Name Role Phone Jocelyne Desai Primary Care Provider + [phone] Reason for Visit * Reason Onset Date Comments Fax 10/03/2023 Encounter Details Date Type Department Care Team (Late st Contact Info) Description 10/03/2023 Telephone Nephrology, [address] [address] Services, Scheduling [address] [place] [address] Fax Allergies No known active allergiesdocumented as [...] connectivity [facility] for wound care [phone] Televideo if needed. 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 (Household - for [...] Telephone Encounter - Marisela Peraza LPN - 10/03/2023 12:45 PM EDT Placed to Dr Agustin's desk for signature * Telephone Encounter - Jenna Olivera OSA - 10/03/2023 11:25 AM EDT Lacy from [facility] on the line, she stated that she they are missing 's signatureon three orders from August. One from August 24, September 03 and September 05. Please sign and fax back to [phone]. Thank you documented in this encounter Plan of Treatment Upcoming Encounters Date Type Department Care Team (Late st Contact Info) Description 10/09/2023 6:30 AM EDT Anticoagulation Centralized Clinical Pharmacy Services, Ilya [address] [place] [address] [facility], [address] [place] [address] 11/20/2023 2:00 PM EDT Office Visit Nephrology [address] [place] [address] Marycarmen Kowalski PA-C [address] [place] [address] 01/19/2024 9:00 AM EST Office Visit Gastroenterology [address] [place] [address] Moon Avila CRNP [address] [place] [address] 02/20/2024 12:30 PM EST Nurse Only Ancillary [address] [place] [address] [place], Nurse Annual [address] [place] [address] 03/08/2024 2:30 PM EST Office Visit Family Medicine [address] [place] [phone] Jocelyne Desai, [address] [place] [address] Scheduled Procedures Name Priority Associated Diagnoses Date/Ti [...] Depression Screening 02/17/2024 02/16/2023 HbA1c 02/23/2024 08/23/2023, 100 05/2022, 11/09/2022, Additional history exists GFR 04/03/2024 [...] this encounter Medical Devices Implanted Type Area Lactation Specialist Device Identifier Shelf Expiration Date Model / Serial / Lot Shaft Fibula 6cm [id number] - [id number] Implanted:Qty: 1 on 09/05/2008 at [place] [facility] [place] Tissue - Human N/A: Spine Cervical MUSCULOSKELETAL TRANSPLANT FND 04/20/2010 [id number] / [id number] 0P / Stent Eso Gw 22x70 86440-774 - [id number] Implanted:Qty: 1 on 01/21/2008 at [place] [facility] [place] N/A: Esophagus ALVEOLUS INC 04/12/2009 55177-494 / / [id number] Depuy Uniplate 32 Implanted:Qty: 1 on 09/05/2008 [place] N/A: Neck 1773-06-146 / 1773-06-146 / Plate Zach 3 Level Ti 54mm - [id number] Implanted:Qty: 1 on 05/07/2010 at [place] [facility] [place] N/A: Neck JNJ : DEPUY SPINE [id number] 54 / / Screw Zach Const St Ti 14mm - [id number] Implanted:Qty: 4 on 05/07/2010 at [place] [facility] [place] N/A: Neck JNJ : DEPUY SPINE [id number] 14 / / Screw 3.5x14 Mntr Fa [id number] - [id number] Implanted:Qty: 8 on 05/07/2010 at [place] [facility] [place] N/A: Spine Cervical JNJ : ETHICON CARDIOVATIONS [id number] / / Jarrell [id number] - [id number] Implanted:Qty: 1 on 05/07/2010 at [place] [facility] [place] N/A: Spine Cervical JNJ : ETHICON CARDIOVATIONS [id number] / / Screw Inner Mntr [id number] - [id number] Implanted:Qty: 8 on 05/07/2010 at [place] [facility] [place] N/A: Spine Cervical JNJ : ETHICON CARDIOVATIONS [id number] / / Envista Intraocular Lens Implanted:Qty: 1 on 03/10/2022 by Liang Marshall MD at OR [facility] Right: Eye BAUSCH & LOMB 08/13/2023 [id number] / [id number] / [id number] Envista Intraocular Lens Implanted:Qty: 1 on 03/24/2022 by Liang Marshall MD at OR [facility] Left: Eye BAUSCH & LOMB 07/13/2024 [id number] / [id number] / [id number] documented as of this encounter Advance Directives Documents on File Type Date Recorded Patient Director Business Travel Expl anation POLST 01/26/2021 [place] OR [facility] FOR [...] Power of Attor andrew? No Care Teams Game Trapper Relationship Specialty Start Date End Date Jocelyne Desai DO [address] [place] [address] [place] [address] PCP - General Internal Medicine 11/09/16 documented as of this encounter
--- OUTSIDE RECORDS SUMMARY | 2023-10-21 16:33 | External Medical Summary | Summary of Care ---
Author Name Unknown Organization [facility] Address [address] [facility] [place] [address] Phone [phone] Care Team Providers Care Deputy Prosecuting Attorney Name Role Phone Jocelyne Desai DO Primary Care Provider Reason for Visit * Reason Onset Date Comments Health Maintenance 10/10/2023 Encounter Details Date Type Department Care Team (Late st Contact Info) Description 10/10/2023 Telephone Family Medicine [address] [phone] Jocelyne Desai DO [address] [place] [address] [place] [address] Health Maintenance Allergies No known active allergiesdocumented as of [...] Good connectivity [facility] for wound care [phone] Televideo if needed. 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 Overview: [facility] nursing home current use of 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 1 [...] ICD-10 update of inactive term PLATT RESEARCH OTHER*[id number] 02/20/2007 ADVANCE DIRECTIVE INFORMATION 01/19/2005 Overview: Yes, [...] If pt cannot be reassess by Dr. Barxton office early next week will need [facility] provider recheck Multiple and open [...] 11/17/19 23 LUMBAGO 12/24/2002 05/09/2007 LOC PRIM [id number] 12/24/200208/13 DEGENERATIVE SKIN DISORD 12/24/2002 VERTEBRAL FX [...] encounter Miscellaneous Notes * Telephone Encounter - Rickey KerrTYRA pascual - 10/10/2023 9:35 AM EDT Care Gaps Comprehensive Care Outreach Last Office/Telemedicine Visit: 09/27/2023 (in office), Visit date not found (telemedicine) Next Office Visit: 03/08/2024 Hemoglobin AIC Results: Lab Results Component Value Date/Time HEMOGLOBIN A1C - [facility] 6.3 (H) 08/23/2023 12:46 PM HEMOGLOBIN A1C - [facility] 6.5 (H) 11/16/2022 03:20 PM HEMOGLOBIN A1C - [facility] 7.0 (H) 05/13/2022 02:41 PM HEMOGLOBIN A1C - [facility] 7.4 (H) 10/17/2019 12:25 PM HEMOGLOBIN A1C - [facility] 6.7 (H) 06/26/2019 02:46 PM HEMOGLOBIN A1C - [facility] 7.0 (H) 11/22/2018 08:35 AM HEMOGLOBIN A1C, DBS - [facility] 7.6 (H) 11/09/2022 12:59 PM BP Readings from Last 1 Encounters: 09/27/23 116/66 Reviewed Health Maintenance below: Health Maintenance Topic Date Due Diabetic Eye Exam 12/30/2022 COVID-19 Vaccine ( season) 2023 Influenza Vaccine (FLU shot) (1) 10/15/2023 Diabetic Foot Exam 11/17/2023 Depression Screening 02/17/2024 Adult Wellness Visit 02/17/2024 HbA1c 02/23/2024 GFR 04/03/2024 Eye Awv batsheva already scheduled Labs batsheva defer to pcp Care Gap Outreach Action Taken: Elliehart message sent documented in this encounter Plan of Treatment Upcoming Encounters Date Type Department Care Team (Late st Contact Info) Description 10/13/2023 6:15 PM EDT Anticoagulation Centralized Clinical Pharmacy Services, Ilya Lafleur [address] [place] [address] [place] [address] [place] [address] 11/20/2023 2:00 PM EDT Office Visit Nephrology [address] [place] [address] Marycarmen Kowalski PA-C [address] [facility] [place] [address] 01/19/2024 9:00 AM EST Office Visit Gastroenterology [address] [place] [address] Moon Avila CRNP [address] [place] [address] 02/20/2024 12:30 PM EST Nurse Only Ancillary [address] [place] [address] [place], Nurse Annual Wellness [address] [place] [address] [place] [address] 03/08/2024 2:30 PM EST Office Visit Family Medicine [address] [place] [phone] [place] [address] Scheduled Procedures Name Priority Associated Diagnoses Date/Ti [...] encounter Medical Devices Implanted Type Area Clinical Laboratory Technologist Device Identifier Shelf Expiration Date Model / Serial / Lot Shaft Fibula 6cm [id number] - [id number] Implanted:Qty: 1 on 09/05/2008 at [place] [facility] Tissue - Human N/A: Spine Cervical MUSCULOSKELETAL TRANSPLANT FND 04/20/2010 [id number] / [id number] / Stent Eso Gw 22x70 [id number] - [id number] Implanted:Qty: 1 on 01/21/2008 at [place] [facility] N/A: Esophagus [employer] 04/12/2009 98798-906 / / [id number] Depuy Uniplate 32 Implanted:Qty: 1 on 09/05/2008 [...] Plate Zach 3 Level Ti 54mm - [id number] Implanted:Qty: 1 on 05/07/2010 at [place] [facility] N/A: Neck JNJ : DEPUY SPINE [id number] / / Screw Zach Const St Ti 14mm - [id number] Implanted:Qty: 4 on 05/07/2010 at [place] [facility] N/A: Neck JNJ : DEPUY SPINE [id number] 14 / / Screw 3.5x14 Mntr Fa [id number] - [id number] Implanted:Qty: 8 on 05/07/2010 at [place] [facility] N/A: Spine Cervical JNJ : ETHICON CARDIOVATIONS [id number] / / Jarrell [id number] - [id number] Implanted:Qty: 1 on 05/07/2010 at [place] [facility] N/A: Spine Cervical JNJ : ETHICON CARDIOVATIONS [id number] / / Screw Inner Mntr [id number] - [id number] Implanted:Qty: 8 on 05/07/2010 at [place] [facility] N/A: Spine Cervical JNJ : ETHICON CARDIOVATIONS [id number] / / Envista Intraocular Lens Implanted:Qty: 1 on 03/10/2022 by Liang Marshall MD at OR [facility] Right: Eye BAUSCH & LOMB 08/13/2023 [id number] / [id number] / [id number] Envista Intraocular Lens Implanted:Qty: 1 on 03/24/2022 by Liang Marshall MD at OR [facility] Left: Eye BAUSCH & LOMB 07/13/2024 [id number] / [id number] / [id number] documented as of this encounter Advance Directives Documents on File Type Date Recorded Patient Gravity Prospecting Operator Expl anation POLST 01/26/2021 [place] [email or web address] FOR LIFE-SUSTAINING TREATMENT * No Code (Latest [...] of Attor andrew? No Care Teams Deputy Prosecuting Attorney Relationship Specialty Start Date End Date Jocelyne Desai DO [address] [place] [address] [place] [address] PCP - General Internal Medicine 11/09/16 documented as of this encounter
--- OUTSIDE RECORDS SUMMARY | 2023-10-21 16:33 | External Medical Summary | Summary of Care ---
Author Name Unknown Organization [facility] Address [address] [facility] [place] [address] Phone [phone] Care Team Providers Care Statistics Intern Name Role Phone Jocelyne Desai DO Primary Care Provider Reason for Visit * Reason Onset Date Comments Home Health 09/29/2023 Encounter Details Date Type Department Care Team (Late st Contact Info) Description 09/29/2023 Telephone Family Medicine [address] [place] [phone] Jocelyne Desai DO [address] [place] [address] [place] [address] Home Health Allergies No [...] from the original. Good connectivity [facility] for wound care [phone] Televideo if needed. Problem Noted Date Diagnosed Date Chronic kidney disease (CKD), stage IV (severe) 09/27/2023 Atrial fibrillation 09/27/2023 SVT (supraventricular tachycardia) 09/27/2023 MRSA (methicillin resistant Staphylococcus aureu s) 06/30/2023 Orthostatic hypotension 06/30/2023 Pressure injury of buttock, stage 2 06/30/2023 Full code status 06/28/2023 Calculus of gallbladder with out cholecystitis without obstruction 06/28/2023 Stasis ulcer 06/28/2023 History of TX (myocardial infarction) 11/09/2021 Trigger ring finger of [...] ICD-10 update of inactive term PLATT RESEARCH OTHER*[id number] 02/20/2007 ADVANCE DIRECTIVE INFORMATION 01/19/2005 Overview: Yes, [...] [facility] office early next week will need [facility] provider recheck Multiple and open [...] 11/17/19 23 LUMBAGO 12/24/2002 05/09/2007 LOC PRIM [id number] 12/24/200208/13 DEGENERATIVE SKIN DISORD 12/24/2002 VERTEBRAL FX [...] Telephone Encounter - Belen Patino RN - 10/03/2023 8:45 AM EDT Home health [facility] yesterday. He will resume his torsemide as originally directed * Telephone Encounter - Jocelyne Desai DO - 10/02/2023 12:21 PM EDT Have him increase his water pill back up to the full dose. I had him temporarily reduce his dose due to worsening renal function. He should have a BMP KENNY. It was supposed to be done today, but maybe we did not convey that to them. * Telephone Encounter - Mimi Dawson LPN - 09/29/2023 10:39 AM EDT HH Concerns KWAME Ahn, Calling from: [facility] Report/Concerns of: Weight gain Symptoms: edema Vitals: T 97.2 P 64 RR 18 BP 108/78 SP O2 99% RA Lung sounds CTA Weight 204 lbs. Blood sugar NA- pt does not check BSG all the time. Narrative: Reports that the pt's weight today is 214 lbs. Pt's weight was 205 lbs on 09/27/23 during OV. On 09/22/23 pt's weight was 190 lbs on his home scale. Denies trouble breathing. Ankle/BLE's are a little edematous; +1 pitting. Asks if it is ok to obtain CBC and BMP on Monday10/06/23? Is due for a BMP on 10/06/[address] Agustin. Orders faxed and confirmation was received. Please advise. Call back KWAME Ahn once addressed at [phone]. Please fax new orders to [facility] [phone]. documented in this encounter Plan of Treatment Upcoming Encounters Date Type Department Care Team (Late st Contact Info) Description 10/09/2023 6:30 AM EDT Anticoagulation Centralized Clinical Pharmacy Services, Ilya Lafleur [address] [place] [address] [place] [address] [place] [address] 11/20/2023 2:00 PM EDT Office Visit Nephrology [address] [place] [address] ZemaitisMarycarmen PA-C [address] [place] [address] 01/19/2024 9:00 AM EST Office Visit Gastroenterology [address] [place] [address] Moon Avila, BUILDING SERVICES SUPERVISOR [address] [place] [address] 02/20/2024 12:30 PM EST Nurse Only Ancillary [address] [place] [address] [place], Nurse Annual [address] [place] [address] 03/08/2024 2:30 PM EST Office Visit Family Medicine [address] [place] [phone] Jocelyne Desai, [address] [place] [address] Scheduled Procedures Name Priority Associated Diagnoses Date/Ti [...] this encounter Medical Devices Implanted Type Area Social Media Marketer Device Identifier Shelf Expiration Date Model / Serial / Lot Shaft Fibula 6cm [id number] - [id number] Implanted:Qty: 1 on 09/05/2008 at OR [facility] Tissue - Human N/A: Spine Cervical MUSCULOSKELETAL TRANSPLANT FND 04/20/2010 [id number] / [id number] 0P / Stent Eso Gw 22x70 40953-211 - [id number] Implanted:Qty: 1 on 01/21/2008 at OR [facility] N/A: Esophagus [employer]US INC 04/12/2009 86778-285 / / [id number] Depuy Uniplate 32 Implanted:Qty: 1 on 09/05/2008 at OR [facility] N/A: Spine Cervical TAMMY & TAMMY DEPUY 1897 / / Depuy Uniplate Screw 14mm Implanted:Qty: 2 on 09/05/2008 at OR [facility] N/A: Spine Cervical TAMMY & TAMMY DEPUY 1897-06-017 / / Depuy Lordotic Bengal Cage Implanted:Qty: 1 on 05/07/2010 at OR [facility] N/A: Neck 1773-06-146 / 1773-06-146 / Plate Zach 3 Level Ti 54mm - [id number] Implanted:Qty: 1 on 05/07/2010 at OR [facility] N/A: Neck JNJ : DEPUY SPINE [id number] 54 / / Screw Zach Const St Ti 14mm - [id number] Implanted:Qty: 4 on 05/07/2010 at OR [facility] N/A: Neck JNJ : DEPUY SPINE [id number] 14 / / Screw 3.5x14 Mntr Fa [id number] - [id number] Implanted:Qty: 8 on 05/07/2010 at OR [facility] N/A: Spine Cervical JNJ : ETHICON CARDIOVATIONS [id number] / / Jarrell [id number] - [id number] Implanted:Qty: 1 on 05/07/2010 at OR [facility] N/A: Spine Cervical JNJ : ETHICON CARDIOVATIONS [id number] / / Screw Inner Mntr [id number] - [id number] Implanted:Qty: 8 on 05/07/2010 at OR [facility] N/A: Spine Cervical JNJ : ETHICON CARDIOVATIONS [id number] / / Envista Intraocular Lens Implanted:Qty: 1 on 03/10/2022 by Liang Marshall MD at OR [facility] Right: Eye BAUSCH & LOMB 08/13/2023 [id number] / [id number] / [id number] Envista Intraocular Lens Implanted:Qty: 1 on 03/24/2022 by Liang Marshall MD at OR [facility] Left: Eye BAUSCH & LOMB 07/13/2024 [id number] / [id number] / [id number] documented as of this encounter Advance Directives Documents on File Type Date Recorded 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 No Care Teams Statistics Intern Relationship Specialty Start Date End Date Jocelyne Desai DO [address] [place] [address] [place] [address] PCP - General Internal Medicine 11/09/16 documented as of this encounter
--- OUTSIDE RECORDS SUMMARY | 2023-10-21 16:33 | External Medical Summary | Summary of Care ---
Author Name Unknown Organization [facility] Address [address] [place] [address] Phone [phone] Care Team Providers Care Hairspring I Inspector Name Role Phone Jocelyne Desai Primary Care Provider + [phone] Reason for Visit * Reason Onset Date Comments Fax 10/03/2023 Encounter Details Date Type Department Care Team (Late st Contact Info) Description 10/03/2023 Telephone Nephrology, [address] [address] Services, Scheduling [address] [place] [address] Fax Allergies No known active allergiesdocumented as [...] [facility] [phone] Televideo if needed. 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 (Household - for [...] Encounter - Marisela Peraza LPN - 10/03/2023 2:53 PM EDT has signed This is faxed as requested * Telephone Encounter - Marisela Peraza LPN - 10/03/2023 12:45 PM EDT Placed to Dr Agustin's desk for signature * Telephone Encounter - Jenna Olivera OSA - 10/03/2023 11:25 AM EDT Lacy from [facility] on the line, she stated that she they are missing 's signatureon three orders from August. One from August 24, September 03 and September 05. Please sign and fax back to [phone]. Thank you documented in this encounter Plan of Treatment Upcoming Encounters Date Type Department Care Team (Late st Contact Info) Description 10/09/2023 6:30 AM EDT Anticoagulation Centralized Clinical Pharmacy Services, Ilya Lafleur [address] [place] [address] [place] [address] [facility], [address] [place] [address] 11/20/2023 2:00 PM EDT Office Visit Nephrology [address] [place] [address] ZemaitisMarycarmen PA-C [address] [place] [address] 01/19/2024 9:00 AM EST Office Visit Gastroenterology [address] [place] [address] Moon Avila, OLEG [address] [place] [address] 02/20/2024 12:30 PM EST Nurse Only Ancillary [address] [place] [address] [place], Nurse [address] [place] [address] 03/08/2024 2:30 PM EST Office Visit Family Medicine [address] [place] [phone] Jocelyne Desai[address] [place] [address] Scheduled Procedures Name Priority Associated Diagnoses Date/Ti [...] this encounter Medical Devices Implanted Type Area Silver Designer Device Identifier Shelf Expiration Date Model / Serial / Lot Shaft Fibula 6cm [id number] - [id number] Implanted:Qty: 1 on 09/05/2008 at OR [facility] Tissue - Human N/A: Spine Cervical MUSCULOSKELETAL TRANSPLANT FND 04/20/2010 144716 / [id number] 0P / Stent Eso Gw 22x70 30726-016 - [id number] Implanted:Qty: 1 on 01/21/2008 at OR [facility] N/A: Esophagus AL[employer]OLUS INC 04/12/2009 20204-263 / / [id number] Depuy Uniplate 32 Implanted:Qty: 1 on 09/05/2008 at OR [facility] N/A: Spine Cervical TAMMY & TAMMY DEPUY 1897--302 / / Depuy Uniplate Screw 14mm Implanted:Qty: 2 on 09/05/2008 at OR [facility] N/A: Spine Cervical TAMMY & TAMMY DEPUY 1897--017 / / Depuy Lordotic Bengal Cage Implanted:Qty: 1 on 05/07/2010 at OR [facility] N/A: Neck 1773-06-146 / 1773-06-146 / Plate Zach 3 Level Ti 54mm - [id number] Implanted:Qty: 1 on 05/07/2010 at OR [facility] N/A: Neck JNJ : DEPUY SPINE [id number] 54 / / Screw Zach Const St Ti 14mm - [id number] Implanted:Qty: 4 on 05/07/2010 at OR [facility] N/A: Neck JNJ : DEPUY SPINE [id number] 14 / / Screw 3.5x14 Mntr Fa [id number] - [id number] Implanted:Qty: 8 on 05/07/2010 at OR [facility] N/A: Spine Cervical JNJ : ETHICON CARDIOVATIONS [id number] / / Jarrell [id number] - [id number] Implanted:Qty: 1 on 05/07/2010 at OR [facility] N/A: Spine Cervical JNJ : ETHICON CARDIOVATIONS [id number] / / Screw Inner Mntr [id number] - [id number] Implanted:Qty: 8 on 05/07/2010 at OR [facility] N/A: Spine Cervical JNJ : ETHICON CARDIOVATIONS [id number] / / Envista Intraocular Lens Implanted:Qty: 1 on 03/10/2022 by Liang Marshall MD at OR [facility] Right: Eye BAUSCH & LOMB 08/13/2023 [id number] / [id number] / [id number] Envista Intraocular Lens Implanted:Qty: 1 on 03/24/2022 by Liang Marshall MD at OR [facility] Left: Eye BAUSCH & LOMB 07/13/2024 [id number] / [id number] / [id number] documented as of this encounter Advance Directives Documents on File Type Date Recorded 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 No Care Teams Hairspring I Inspector Relationship Specialty Start Date End Date Jocelyne Desai DO [address] [place] [address] [place] [phone] PCP - General Internal Medicine 11/09/16 documented as of this encounter
--- OUTSIDE RECORDS SUMMARY | 2023-10-21 16:34 | External Medical Summary | Summary of Care ---
Author Name Unknown Organization [facility] Address [address] [facility] [place] [address] Phone [phone] Care Team Providers Care Recreational Aide Name Role Phone Jocelyne Desai DO Primary Care Provider Reason for Visit * Reason Onset Date Comments Encounter Created in Error 09/25/2023 Encounter Details Date Type Department Care Team (Late st Contact Info) Description 09/25/2023 Telephone Family Medicine [address] [phone] Jocelyne Desai DO [address] [place] [address] [place] [address] Encounter Created in Error Allergies No known active allergiesdocumented as of this encounter (statuses as of 09/25/2023) Medications Medication Sig Dispensed Refills Start Date [...] or Pain, Severe. 30 Tablet 07/05/2023 Active Sennosides-Docus ate Sodium 8.6-50 MG [...] morning 1 tablet before bed. 09/06/2023 Active Enoxaparin Sodium 100 MG/ML Injection Solution Prefilled Syringe (Lovenox)Indicat ions:History of pulmonary embolism Inject 0.9ml (90mg) under the skin every 24 hours according to anticoagulation clinic 5 mL 09/08/2023 Active documented as of this encounter (statuses as of 09/25/2023) Active Problems Patient Care Coordination No te Formatting of this note migh t be different from the original. Good connectivity [facility] for wound care [phone] Televideo if needed. Problem Noted Date Diagnosed [...] in chart from [facility] podiatry they were unable to get [...] ICD-10 update of inactive term PLATT RESEARCH OTHER*[id number] 02/20/2007 ADVANCE DIRECTIVE INFORMATION 01/19/2005 Overview: Yes, Patient instructed to provide copy of advance directive for provider to review and to be scanned into Electronic Medical Record No, Advance Directive brochure given to patient at prior appointment. SPINAL STENOSIS-LUMBAR 09/23/2002 Vitamin D deficiency Cervical spinal stenosis documented as of this encounter (statuses as of 09/25/2023) Resolved Problems Problem Noted Date Diagnosed Date Resolved Date Depression, unspecified 11/09/2021 03/2 Depression, unspecified 11/09/2021 100 05/2022 Cellulitis of right leg 07/13/20210 05/2022 Last Assessment & Plan: Suspect this could be early/localized. Will treat with 7 days antibiotic. If pt cannot be reassess by Dr. Braxton office early next week will need [facility] provider recheck Multiple and open wound [...] below 160 06/12/2006 10/13/2006 Mixed dyslipidemia 12/24/2005 12/08/200 9 Overview: Per Lipid Taxonomy. DIAB RENAL [...] 11/17/19 23 LUMBAGO 12/24/2002 05/09/2007 LOC PRIM [id number] 12/24/200208/13 DEGENERATIVE SKIN DISORD 12/24/2002 VERTEBRAL FX [...] as of this encounter (statuses as of 09/25/2023) Immunizations Name Administration Dates Next Due COVID-19 [...] encounter Miscellaneous Notes * Telephone Encounter - Shavon Cole OSA - 09/25/2023 1:53 PM EDT Created in error documented in this encounter Plan of Treatment Upcoming Encounters Date Type Department Care Team (Late st Contact Info) Description 09/27/2023 11:50 AM EDT Office Visit Family Medicine [address] [place] [address] [address] Des[address] [place] [address] 10/09/2023 6:30 AM EDT Anticoagulation Centralized Clinical Pharmacy Services, Ilya Lafleur [address] [place] [address] [place] [address] C[facility], [address] [place] [address] 11/20/2023 2:00 PM EDT Office Visit Nephrology [address] [place] [address] ZemaitisMarycarmen PA-C [address] [place] [address] 01/19/2024 9:00 AM EST Office Visit Gastroenterology [address] [place] [address] Moon Avila CRNP [address] [place] [address] 02/20/2024 12:30 PM EST Nurse Only Ancillary [address] [place] [address] [place], Nurse Annual [address] [place] [address] 03/08/2024 2:30 PM EST Office Visit Family Medicine [address] [place] [phone] Jocelyne Desai[address] [place] [address] Scheduled Procedures Name Priority Associated Diagnoses Date/Ti [...] 08/23/2023, 1005/2022, 11/09/2022, Additional history exists GFR 03/06/2024 09/04/2023, 08/13, 08/28/2023, Additional history exists Albumin/Creatinine Ratio 07/17/2024 024, 11/16/2022, 05/13/2022, Additional history exists CKD HGB USE SMARTSET 33761 08/22/202408/22, 08/23/2023, 08/16/2023, Additional history exists CKD PHOS USE SMARTSET 90802 08/22/202408/13, 07/18/2023, 07/03/2023, Additional history exists DTaP,Tdap,and Td Vaccines [...] this encounter Medical Devices Implanted Type Area News Videographer Device Identifier Shelf Expiration Date Model / Serial / Lot Shaft Fibula 6cm [id number] - [id number] Implanted:Qty: 1 on 09/05/[place] [facility] [place] Human N/A: Spine Cervical MUSCULOSKELETAL TRANSPLANT FND 04/20/2010 [id number] / [id number] 0P / Stent Eso Gw 22x70 [id number] - [id number] Implanted:Qty: 1 on 01/21/2008 at [place] [facility] [place] N/A: Esophagus [employer] INC 04/12/2009 [id number] / / [id number] Depuy Uniplate 32 Implanted:Qty: 1 on 09/05/2008 [...] [facility] [place]: Neck [id number] / [id number] / Plate Zach 3 Level Ti 54mm - [id number] Implanted:Qty: 1 on 05/07/2010 at [place] [facility] [place] N/A: Neck JNJ : DEPUY SPINE [id number] / / Screw Zach Const St Ti 14mm - [id number] Implanted:Qty: 4 on 05/07/2010 at [place] [facility] [place] N/A: Neck JNJ : DEPUY SPINE [id number] / / Screw 3.5x14 Mntr Fa [id number] - [id number] Implanted:Qty: 8 on 05/07/2010 at [place] [facility] [place] N/A: Spine Cervical JNJ : ETHICON CARDIOVATIONS [id number] / / Jarrell [id number] - [id number] Implanted:Qty: 1 on 05/07/2010 at [place] [facility] [place] N/A: Spine Cervical JNJ : ETHICON CARDIOVATIONS [id number] / / Screw Inner Mntr [id number] - [id number] Implanted:Qty: 8 on 05/07/2010 at [place] [facility] [place] N/A: Spine Cervical JNJ : ETHICON CARDIOVATIONS [id number] / / Envista Intraocular Lens Implanted:Qty: 1 on 03/10/2022 by Liang Marshall MD at OR [facility] Right: Eye BAUSCH & LOMB 08/13/2023 [id number] / [id number] / [id number] Envista Intraocular Lens Implanted:Qty: 1 on 03/24/2022 by Liang Marshall MD at OR [facility] Left: Eye BAUSCH & LOMB 07/13/2024 [id number] / [id number] / [id number] documented as of this encounter Advance Directives Documents on File Type Date Recorded 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 No Care Teams Recreational Aide Relationship Specialty Start Date End Date Jocelyne Desai DO [address] [place] [address] [place] [address] PCP - General Internal Medicine 11/09/16 documented as of this encounter
--- OUTSIDE RECORDS SUMMARY | 2023-10-21 16:34 | External Medical Summary | Summary of Care ---
Author Name Unknown Organization [facility] Address [address] [facility] [place] [address] Phone [phone] Care Team Providers Care Box Spring Maker Name Role Phone DesaiElissaJocelynejohn Cunninghambritany ASHTON Primary Care Provider + [phone] Reason for Visit * Reason Comments Outpatient Testing Encounter Details Date Type Department Care Team (Late st Contact Info) Description 09/26/2023 9:00 AM EDT Laboratory Laboratory [address] [place] [phone] [address] [place] [address] Chronic kidney disease, stage 3b (HCC); Loss of weight; Poor appetite Allergies No known active allergiesdocumented as of this encounter (statuses as of 09/26/2023) Medications Medication Sig Dispensed Refills Start Date [...] as of this encounter (statuses as of 09/26/2023) Active Problems Patient Care Coordination No te Formatting of this note migh t be different from the original. Good connectivity [facility] for wound care [phone] Televideo if needed. Problem Noted Date Diagnosed [...] up with podiatry,. Letter in chart from [facility] podiatry they were unable to [...] ICD-10 update of inactive term PLATT RESEARCH OTHER*[id number] 02/20/2007 ADVANCE DIRECTIVE INFORMATION 01/19/2005 Overview: Yes, Patient instructed to provide copy of advance directive for provider to review and to be scanned into Electronic Medical Record No, Advance Directive brochure given to patient at prior appointment. SPINAL STENOSIS-LUMBAR 09/23/2002 Vitamin D deficiency Cervical spinal stenosis documented as of this encounter (statuses as of 09/26/2023) Resolved Problems Problem Noted Date Diagnosed Date Resolved Date Depression, unspecified 11/09/2021 03/2 Depression, unspecified 11/09/2021 100 05/2022 Cellulitis of right leg 07/13/20210 05/2022 Last Assessment & Plan: Suspect this could be early/localized. Will treat with 7 days antibiotic. If pt cannot be reassess by Dr. Braxton office early next week will need [facility] provider recheck Multiple and open [...] 11/17/19 23 LUMBAGO 12/24/2002 05/09/2007 LOC PRIM [id number] 12/24/200208/13 DEGENERATIVE SKIN DISORD 12/24/2002 VERTEBRAL FX [...] as of this encounter (statuses as of 09/26/2023) Immunizations Name Administration Dates Next Due COVID-19 [...] 11:50 AM EDT Office Visit Family Medicine [address] [phone] [address] Des[address] [place] [address] 10/09/2023 6:30 AM EDT Anticoagulation Centralized Clinical Pharmacy Services, Ilya Lafleur [address] [place] [address] [place] [address] [facility], [address] [place] [address] 11/20/2023 2:00 PM EDT Office Visit Nephrology [address] [place] [address] ZemaMarycarmen lindsey PA-C [address] [place] [address] 01/19/2024 9:00 AM EST Office Visit Gastroenterology [address] [place] [address] Moon Avila CRNP [address] [place] [address] 02/20/2024 12:30 PM EST Nurse Only Ancillary [address] [place] [address] [place], Nurse [address] [place] [address] 03/08/2024 2:30 PM EST Office Visit Family Medicine [address] [place] [phone] J[address] Des[address] [place] [address] Pending Results Name Type Priority Associated Diagnoses Date /Time BASIC METABOLIC PANEL Lab Routine Chronic kidney disease, stage 3b (HCC) 09/26/2023 8:52 AM EDT CORTISOL Lab Routine Loss of weight Poor appetite 09/26/2023 8:52 AM EDT Scheduled Procedures Name Priority Associated Diagnoses [...] 100 05/2022, 11/09/2022, Additional history exists GFR 03/06/2024 09/04/2023, 08/13, 08/28/2023, Additional history exists Albumin/Creatinine Ratio 07/17/2024 024, 11/16/2022, 05/13/2022, Additional history exists CKD HGB USE SMARTSET 01412 08/22/202408/22, 08/23/2023, 08/16/2023, Additional history exists CKD PHOS USE SMARTSET 25845 08/22/2024 07, 07/18/2023, 07/03/2023, Additional history exists DTaP,Tdap,and Td [...] this encounter Medical Devices Implanted Type Area Strategies Analyst Device Identifier Shelf Expiration Date Model / Serial / Lot Shaft Fibula 6cm [id number] - [id number] [place]ed:Qty: 1 [place] [facility] [place] - Human N/A: Spine Cervical MUSCULOSKELETAL TRANSPLANT FND 04/20/2010 [id number] / [id number] 0P / Stent Eso Gw 22x70 73000-369 - [id number] Implanted:Qty: 1 on 01/21/2008 [place] [facility] [place]/A: Esophagus ALVEOLUS INC 04/12/2009 [id number] / / [id number] Depuy Uniplate 32 Implanted:Qty: 1 on 09/05/2008 [...] Plate Zach 3 Level Ti 54mm - [id number] Implanted:Qty: 1 on 05/07/2010 [place] [facility] [place]A: Neck JNJ : DEPUY SPINE [id number] / / Screw Zach Const St Ti 14mm - [id number] Implanted:Qty: 4 on 05/07/2010 [place] [facility] [place]/A: Neck JNJ : DEPUY SPINE [id number] 14 / / Screw 3.5x14 Mntr Fa [id number] - [id number] Implanted:Qty: 8 on 05/07/2010 [place] [facility] [place]A: Spine Cervical JNJ : ETHICON CARDIOVATIONS [id number] / / Jarrell [id number] - [id number] Implanted:Qty: 1 on 05/07/2010 [place] [facility] [place]A: Spine Cervical JNJ : ETHICON CARDIOVATIONS [id number] / / Screw Inner Mntr [id number] - [id number] Implanted:Qty: 8 on 05/07/2010 [place] [facility] [place]A: Spine Cervical JNJ : ETHICON CARDIOVATIONS [id number] / / Envista Intraocular Lens Implanted:Qty: 1 on 03/10/2022 by Liang Marshall MD at [place] [facility] Right: Eye BAUSCH & LOMB 08/13/2023 [id number] / [id number] / [id number] Envista Intraocular Lens Implanted:Qty: 1 on 03/24/2022 by Liang Marshall MD at [place] [facility] Left: Eye BAUSCH & LOMB 07/13/2024 [id number] / [id number] / [id number] documented as of this encounter Visit Diagnoses Diagnosis Chronic kidney disease, stage 3b (HCC) Loss of weight Poor appetite Anorexia documented in this encounter Advance Directives Documents on File Type Date Recorded 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 No Care Teams Box Spring Maker Relationship Specialty Start Date End Date Jocelyne Desai DO [address] [place] [address] [place] [address] PCP - General Internal Medicine 11/09/16 documented as of this encounter
--- OUTSIDE RECORDS SUMMARY | 2023-10-21 16:34 | External Medical Summary ---
Author Name Unknown Address Unknown Organization [id number]:LAB[facility]ATORY [facility] [place] [facility] [address] [place] [address] Laboratory Report Ordering Provider Test Date Status PAWEL VEGA 10/02/2023 13:56:37 Final Observation Date Value Abnormality Reference (Units ) Status BUN 10/02/2023 13:56:37 68 Above high normal 6-20 (mg/dL) Final Creatinine 10/02/2023 13:56:37 4.1 Above high normal 0.6-1.2 (mg/dL) Final Glomerular filtration rate/1.73 sq M.predicted [Volume Rate/Area] in Serum, Plasma or Blood by Creatinine-based formula (CKD-EPI) 10/02/2023 13:56:37 15 Below low normal >=60 (mL/min) Final eGFR is calculated based on the CKD-EPI 2020 equation. Sodium 10/02/2023 13:56:37 141 135-146 (m mol/L) Final Potassium 10/02/2023 13:56:37 4.5 3.5-5.1 (m mol/L) Final Cl 10/02/2023 13:56:37 112 Above high normal 98 -107 (mmol/L) Final CO2 10/02/2023 13:56:37 15 Below low normal 22- 32 (mmol/L) Final Anion gap 10/02/2023 13:56:37 14 7-15 (mmol /L) Final Glucose 10/02/2023 13:56:37 130 Above high normal 70 -120 (mg/dL) Final Calcium 10/02/2023 13:56:37 7.7 Below low normal 8.4 -10.2 (mg/dL) Final Performing Location LABORATORY [facility] - [address] [place] [address]
--- OUTSIDE RECORDS SUMMARY | 2023-10-21 16:34 | External Medical Summary | Summary of Care ---
Author Name Unknown Organization [facility] Address [address] [place] [address] Phone [phone] Care Team Providers Care Motorcycle Police Officer Name Role Phone Jocelyne Desai Primary Care Provider [phone] Reason for Visit * Reason Onset Date Comments Forms Request 09/25/2023 Encounter Details Date Type Department Care Team (Late st Contact Info) Description 09/25/2023 Telephone Nephrology, [address] [address] Services, Scheduling [address] [place] [address] Forms Request Allergies No known active allergiesdocumented as [...] [facility] for wound care [phone] Televideo if needed. Problem Noted Date Diagnosed [...] podiatry,. 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 [...] ICD-10 update of inactive term PLATT RESEARCH OTHER*[id number] 02/20/2007 ADVANCE DIRECTIVE INFORMATION 01/19/2005 Overview: Yes, [...] 11/17/19 23 LUMBAGO 12/24/2002 05/09/2007 LOC PRIM [id number] 12/24/200208/13 DEGENERATIVE SKIN DISORD 12/24/2002 VERTEBRAL FX [...] Telephone Encounter - Marisela Peraza LPN - 09/25/2023 2:13 PM EDT We provide orders that are electronic no signature is required with the electronic order If [facility] calls back please obtain a phone number so staff can discuss * Telephone Encounter - Sushma Li MINERVA - 09/25/2023 1:59 PM EDT Office staff from [facility] is calling asking if the 3 orders they faxed backto the clinic to get Dr. Agustin's signature has been faxed back to them. They said they are lab orders from August 24, , and . Please fax them to [phone] as soon as they are signed. Thank you [facility] Scheduling Services documented in this encounter Plan of Treatment Upcoming Encounters Date Type Department Care Team (Late st Contact Info) Description 09/27/2023 11:50 AM EDT Office Visit Family Medicine [address] [place] [phone] [address] Des[address] [place] [address] 10/09/2023 6:30 AM EDT Anticoagulation Centralized Clinical Pharmacy Services, Ilya Lafleur [address] [place] [address] [place] [address] [facility], [address] [place] [address] 11/20/2023 2:00 PM EDT Office Visit Nephrology [address] [place] [address] ZemaMarycarmen lindsey PA-C [address] [facility] [place] [address] 01/19/2024 9:00 AM EST Office Visit Gastroenterology [address] [place] [address] Moon Avila CRNP [address] [place] [address] 02/20/2024 12:30 PM EST Nurse Only Ancillary [address] [place] [address] [place], Nurse Annual Wellness [address] [place] [address] [place] [address] 03/08/2024 2:30 PM EST Office Visit Family Medicine [address] [place] [phone] Jocelyne Desai[address] [place] [address] Scheduled Procedures Name Priority Associated Diagnoses Date/Ti [...] 08/28/2023, Additional history exists Albumin/Creatinine Ratio 07/17/2024 06/2 024, 11/16/2022, 05/13/2022, Additional history exists CKD HGB USE SMARTSET 97007 08/22/202408/22, 08/23/2023, 08/16/2023, Additional history exists CKD PHOS USE SMARTSET 07207 08/22/2024 07, 07/18/2023, 07/03/2023, Additional history exists [...] this encounter Medical Devices Implanted Type Area Mc Kay Stitcher Device Identifier Shelf Expiration Date Model / Serial / Lot Shaft Fibula 6cm [id number] - [id number] Implanted:Qty: 1 [place] 09/05/2008 [place] [facility] [place] - Human N/A: Spine Cervical MUSCULOSKELETAL TRANSPLANT FND 04/20/2010 [id number] / [id number] 0P / Stent Eso Gw 22x70 [id number] - [id number] Implanted:Qty: 1 on 01/21/2008 [place] [facility] [place]/A: Esophagus ALVEOLUS INC 04/12/2009 25650-286 / / [id number] Depuy Uniplate 32 Implanted:Qty: 1 on 09/05/2008 [...] Plate Zach 3 Level Ti 54mm - [id number] Implanted:Qty: 1 on 05/07/2010 [place] [facility] [place]/A: Neck JNJ : DEPUY SPINE [id number] / / Screw Zach Const St Ti 14mm - [id number] Implanted:Qty: 4 on 05/07/2010 [place] [facility] [place]A: Neck JNJ : DEPUY SPINE [id number] 14 / / Screw 3.5x14 Mntr Fa [id number] - [id number] Implanted:Qty: 8 on 05/07/2010 [place] [facility] [place]A: Spine Cervical JNJ : ETHICON CARDIOVATIONS [id number] / / Jarrell [id number] - [id number] Implanted:Qty: 1 on 05/07/2010 [place] [facility] [place]A: Spine Cervical JNJ : ETHICON CARDIOVATIONS [id number] / / Screw Inner Mntr [id number] - [id number] Implanted:Qty: 8 on 05/07/2010 [place] [facility] [place]A: Spine Cervical JNJ : ETHICON CARDIOVATIONS [id number] / / Envista Intraocular Lens Implanted:Qty: 1 on 03/10/2022 by Liang Marshall MD at OR [facility] Right: Eye BAUSCH & LOMB 08/13/2023 [id number] / [id number] / [id number] Envista Intraocular Lens Implanted:Qty: 1 on 03/24/2022 by Liang Marshall MD at OR [facility] Left: Eye BAUSCH & LOMB 07/13/2024 [id number] / [id number] / [id number] documented as of this encounter Advance Directives Documents on File Type Date Recorded Patient Data Integrity Specialist Expl anation POLST 01/26/2021 [place] OR [facility] FOR [facility]-SUSTAINING TREATMENT [...] Power of Attor andrew? No Care Teams Motorcycle Police Officer Relationship Specialty Start Date End Date Jocelyne Desai DO [address] [place] [address] [place] [address] PCP - General Internal Medicine 11/09/16 documented as of this encounter
--- OUTSIDE RECORDS SUMMARY | 2023-10-21 16:34 | External Medical Summary ---
Author Name Unknown Address Unknown Organization K01:[facility]ORY [facility] [place] [address] [facility] [address] [place] [address] Laboratory Report Ordering Provider Test Date Status PAWEL VEGA 10/02/2023 13:56:37 Final Observation Date Value Abnormality Reference (Units ) Status WBC, Total 10/02/2023 13:56:37 4.44 4.00-10.80 (K/uL) Final RBC 10/02/2023 13:56:37 2.99 4.50-5.25 (M/uL) Final Hemoglobin 10/02/2023 13:56:37 8.2 Below low normal 14.0-16.8 (g/dL) Final HCT 10/02/2023 13:56:37 28.1 Below low normal 40.0-48.4 (%) Final MCV 10/02/2023 13:56:37 94.0 82.0-99.5 (fL) Final MCH 10/02/2023 13:56:37 27.4 27.0-34.0 (pg) Final MCHC 10/02/2023 13:56:37 29.2 32.0-36.0 (g/dL) Final RDW 10/02/2023 13:56:37 19.5 11.5-15.5 (%) Final Platelets 10/02/2023 13:56:37 170 140-400 (K/uL) Final MPV 10/02/2023 13:56:37 10.9 6.6-11.1 (fL) Final Nucleated erythrocytes/100 leukocytes [Ratio] in Blood by Automated count 10/02/2023 13:56:37 0 <=0 (/100 WBCs) Final Performing Location LAB[facility] [place] [address] [place] [address]
--- OUTSIDE RECORDS SUMMARY | 2023-10-21 16:34 | External Medical Summary ---
Author Name Unknown Address Unknown Organization [id number]:LABORATORY [facility] [place] - [address] [place] [address] Laboratory Report Ordering Provider Test Date Status PAWEL VEGA 09/26/2023 08:52:21 Final Observation Date Value Abnormality Reference (Units ) Status Cortisol 09/26/2023 08:52:21 18.7 2.5-19.5 ( ug/dL) Final AM Reference Range: 4.8 - 19 .5 ug/dL
PM Reference Range: 2.5 - 11.9 ug/dL Performing Location LABORATORY [facility] [place] - [address] [place] [address]
--- OUTSIDE RECORDS SUMMARY | 2023-10-21 16:34 | External Medical Summary | Summary of Care ---
Author Name Unknown Organization [facility] Address [address] [place] [address] Phone [phone] Care Team Providers Care Planning Intern Name Role Phone Jocelyne Desai Primary Care Provider [phone] Reason for Visit * Reason Onset Date Comments Forms Request 09/25/2023 Encounter Details Date Type Department Care Team (Late st Contact Info) Description 09/25/2023 Telephone Nephrology, [address] [address] Services, Scheduling [address] [place] [address] Forms Request Allergies No known active allergiesdocumented [...] be different from the original. Good connectivity [facility] for wound care [phone] Televideo if needed. Problem Noted Date Diagnosed [...] up with podiatry,. 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 1 Status [...] ICD-10 update of inactive term PLATT RESEARCH OTHER*[id number] 02/20/2007 ADVANCE DIRECTIVE INFORMATION 01/19/2005 Overview: Yes, [...] [place] office early next week will need [facility] provider recheck Multiple and open [...] 11/17/19 23 LUMBAGO 12/24/2002 05/09/2007 LOC PRIM [id number] 12/24/200208/13 DEGENERATIVE SKIN DISORD 12/24/2002 VERTEBRAL FX [...] is required with the electronic order If [facility] calls back please obtain a phone number so staff can discuss * Telephone Encounter - Sushma Li MINERVA - 09/25/2023 1:59 PM EDT Office staff from [facility] is calling asking if the 3 orders they faxed backto the clinic to get Dr. Agustin's signature has been faxed back to them. They said they are lab orders from August 24, , and . Please fax them to [phone] as soon as they are signed. Thank you [facility] Scheduling Services documented in this encounter Plan of Treatment Upcoming Encounters Date Type Department Care Team (Late st Contact Info) Description 09/27/2023 11:50 AM EDT Office Visit Family Medicine [address] [place] [phone] [address] [place] [address] 10/09/2023 6:30 AM EDT Anticoagulation Centralized Clinical Pharmacy Services, Ilya Lafleur [address] [place] [address] [place] [address] [facility], [address] [place] [address] 11/20/2023 2:00 PM EDT Office Visit Nephrology [address] [place] [address] ZemaMarycarmen lindsey PA-C [address] [facility] [place] [address] 01/19/2024 9:00 AM EST Office Visit Gastroenterology [address] [place] [address] Moon Avila CRNP [address] [place] [address] 02/20/2024 12:30 PM EST Nurse Only Ancillary [address] [place] [address] [place], Nurse Annual Wellness [address] [place] [address] [place] [address] 03/08/2024 2:30 PM EST Office Visit Family Medicine [address] [place] [phone] Jocelyne Desai[address] [place] [address] Scheduled Procedures Name Priority Associated Diagnoses Date/Ti [...] Additional history exists CKD HGB USE SMARTSET 27041 08/22/202408/22, 08/23/2023, 08/16/2023, Additional history exists CKD PHOS USE SMARTSET 17207 08/22/2024 07, 07/18/2023, 07/03/2023, Additional history exists [...] this encounter Medical Devices Implanted Type Area [employer] Device Identifier Shelf Expiration Date Model / Serial / Lot Shaft Fibula 6cm [id number] - [id number] Implanted:Qty: 1 on 09/05/2008 at [place] [facility] [place] Tissue - Human N/A: Spine Cervical MUSCULOSKELETAL TRANSPLANT FND 04/20/2010 [id number] / [id number] 0P / Stent Eso Gw 22x70 53780-845 - [id number] Implanted:Qty: 1 on 01/21/2008 at [place] [facility] [place] N/A: Esophagus ALVE[employer]US INC 04/12/2009 71111-058 / / [id number] Depuy Uniplate 32 Implanted:Qty: 1 on 09/05/2008 at [place] [facility] [place] N/A: Spine Cervical TAMMY & TAMMY DEPUY 189--302 / / Depuy Uniplate Screw 14mm Implanted:Qty: 2 on 09/05/2008 at [place] [facility] [place] N/A: Spine Cervical TAMMY & TAMMY DEPUY 189--017 / / Depuy Lordotic Bengal Cage Implanted:Qty: 1 on 05/07/2010 at OR [facility] [place] N/A: Neck 1773-06-146 / 1773-06-146 / Plate Zach 3 Level Ti 54mm - [id number] Implanted:Qty: 1 on 05/07/2010 at [place] [facility] [place] N/A: Neck JNJ : DEPUY SPINE [id number] / / Screw Zach Const St Ti 14mm - [id number] Implanted:Qty: 4 on 05/07/2010 at OR [facility] [place] N/A: Neck JNJ : DEPUY SPINE [id number] 14 / / Screw 3.5x14 Mntr Fa [id number] - [id number] Implanted:Qty: 8 on 05/07/2010 at [place] [facility] [place] N/A: Spine Cervical JNJ : ETHICON CARDIOVATIONS [id number] / / Jarrell [id number] - [id number] Implanted:Qty: 1 on 05/07/2010 at [place] [facility] [place] N/A: Spine Cervical JNJ : ETHICON CARDIOVATIONS [id number] / / Screw Inner Mntr [id number] - [id number] Implanted:Qty: 8 on 05/07/2010 at [place] [facility] [place] N/A: Spine Cervical JNJ : ETHICON CARDIOVATIONS [id number] / / Envista Intraocular Lens Implanted:Qty: 1 on 03/10/2022 by Liang Marshall MD at OR [facility] Right: Eye BAUSCH & LOMB 08/13/2023 [id number] / [id number] / [id number] Envista Intraocular Lens Implanted:Qty: 1 on 03/24/2022 by Liang Marshall MD at OR [facility] Left: Eye BAUSCH & LOMB 07/13/2024 [id number] / [id number] / [id number] documented as of this encounter Advance Directives Documents on File Type Date Recorded Patient Gunner'S Mate G Expl anation POLST 01/26/2021 [place] OR [facility] FOR LIFE-SUSTAINING TREATMENT * No [...] Power of Attor andrew? No Care Teams Planning Intern Relationship Specialty Start Date End Date Jocelyne Desai DO [address] [place] [address] [place] [address] PCP - General Internal Medicine 11/09/16 documented as of this encounter
--- OUTSIDE RECORDS SUMMARY | 2023-10-21 16:34 | External Medical Summary | Summary of Care ---
Author Name Unknown Organization [facility] Address [address] [facility] [address] Phone [phone] Care Team Providers Care Liquor Bridge Operator Name Role Phone Desai Jocelyne Briggs Primary Care Provider + [phone] Encounter Details Date Type Department Care Team (Late st Contact Info) Description 10/01/2023 Result Scan Unspecified Department Acacia Carpenter DO [address] [facility] [place] [address] <No scans attached> Allergies No known active allergiesdocumented as of this encounter (statuses as of 10/01/2023) Medications Medication Sig Dispensed Refills Start Date [...] as of this encounter (statuses as of 10/01/2023) Active Problems Patient Care Coordination No te Formatting of this note migh t be different from the original. Good connectivity [facility] for wound care [phone] Televideo if needed. Problem Noted Date Diagnosed [...] with podiatry,. 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 SPINAL STENOSIS-LUMBAR 09/23/2002 Vitamin D deficiency Cervical spinal stenosis documented as of this encounter (statuses as of 10/01/2023) Resolved Problems Problem Noted Date Diagnosed Date [...] 02/27/2003 11/17/19 LUMBAGO 12/24/2002 05/09/2007 LOC PRIM [id number] 12/24/200208/13 DEGENERATIVE SKIN DISORD 12/24/2002 VERTEBRAL FX [...] as of this encounter (statuses as of 10/01/2023) Immunizations Name Administration Dates Next Due COVID-19 [...] No 02/16/2023 Does the household have a [facility] source of income? (Household - for [...] Anticoagulation Centralized Clinical Pharmacy Services, Ilya Lafleur [address] [place] [address] [place] [address] [place] [address] 11/20/2023 2:00 PM EDT Office Visit Nephrology [address] [place] [phone] Marycarmen Kowalski PA-C [address] [place] [address] 01/19/2024 9:00 AM EST Office Visit Gastroenterology [address] [place] [address] Moon Avila CRNP [address] [place] [address] 02/20/2024 12:30 PM EST Nurse Only Ancillary [address] [place] [address] [place], Nurse Annual Wellness [address] [place] [address] [place] [address] 03/08/2024 2:30 PM EST Office Visit Family Medicine [address] [place] [phone] [place] [address] Scheduled Procedures Name Priority Associated Diagnoses Date/Ti [...] 08/23/2023, 05/2022, 11/09/2022, Additional history exists GFR 03/28/2024 09/26/2023, 08/14, 08/28/2023, Additional history exists Albumin/Creatinine Ratio 07/17/2024 [...] encounter Medical Devices Implanted Type Area Senior Ruby Developer Device Identifier Shelf Expiration Date Model / Serial / Lot Shaft Fibula 6cm 086628 - [id number] Implanted:Qty: 1 on 09/05/2008 at [place] [facility] [place] Tissue - Human N/A: Spine Cervical MUSCULOSKELETAL TRANSPLANT FND 04/20/2010 [id number] / [id number] 0P / Stent Eso Gw 22x70 61254-551 - [id number] Implanted:Qty: 1 on 01/21/2008 at OR [facility] [place] N/A: Esophagus AL[employer]OLUS INC 04/12/2009 63674-617 / / [id number] Depuy Uniplate 32 Implanted:Qty: 1 on 09/05/2008 at OR [facility] [place] N/A: Spine Cervical TAMMY & TAMMY DEPUY 1897-02-302 / / Depuy Uniplate Screw 14mm Implanted:Qty: 2 on 09/05/2008 at OR [facility] [place] N/A: Spine Cervical TAMMY & TAMMY DEPUY 1897-06-017 / / Depuy Lordotic Bengal Cage Implanted:Qty: 1 on 05/07/2010 at OR [facility] [place] N/A: Neck 1773--146 / [id number] / Plate Zach 3 Level Ti 54mm - [id number] Implanted:Qty: 1 on 05/07/2010 at OR [facility] [place] N/A: Neck JNJ : DEPUY SPINE [id number] / / Screw Zach Const St Ti 14mm - [id number] Implanted:Qty: 4 on 05/07/2010 at OR [facility] [place] N/A: Neck JNJ : DEPUY SPINE [id number] 14 / / Screw 3.5x14 Mntr Fa [id number] - [id number] Implanted:Qty: 8 on 05/07/2010 at OR [facility] [place] N/A: Spine Cervical JNJ : ETHICON CARDIOVATIONS [id number] / / Jarrell [id number] - [id number] Implanted:Qty: 1 on 05/07/2010 at [place] [facility] [place] N/A: Spine Cervical JNJ : ETHICON CARDIOVATIONS [id number] / / Screw Inner Mntr [id number] - [id number] Implanted:Qty: 8 on 05/07/2010 at [place] [facility] [place] N/A: Spine Cervical JNJ : ETHICON CARDIOVATIONS [id number] / / Envista Intraocular Lens Implanted:Qty: 1 on 03/10/2022 by Liang Marshall MD at OR [facility] Right: Eye BAUSCH & LOMB 08/13/2023 [id number] / [id number] / [id number] Envista Intraocular Lens Implanted:Qty: 1 on 03/24/2022 by Liang Marshall MD at OR [facility] Left: Eye BAUSCH & LOMB 07/13/2024 [id number] / [id number] / [id number] documented as of this encounter Procedures Procedure Name Priority Date/Time Associated Diagnosis Comments CARDIOLOGY SCANNED RESULT 10/01/2023 documented in this encounter Results * CARDIOLOGY SCANNED RESULT (10/01/2023) 10/01/2023 cAacia Carpenter DO OTHER documented in this encounter Advance Directives Documents on File Type Date Recorded Patient Foster Winder Torres ARREOLA 01/26/2021 [place] OR [facility] FOR LIFE-SUSTAINING TREATMENT * No Code [...] Power of Attor andrew? No Care Teams Liquor Bridge Operator Relationship Specialty Start Date End Date Jocelyne Desai DO [address] [place] [address] [place] [address] PCP - General Internal Medicine 11/09/16 documented as of this encounter
--- OUTSIDE RECORDS SUMMARY | 2023-10-21 16:34 | External Medical Summary ---
Author Name Unknown Address Unknown Organization K01:[facility] [place] [facility] [address] [address] [facility] [address] Laboratory Report Ordering Provider Test Date Status KUSHAL DOUGHERTY 09/26/2023 08:52:21 Final Observation Date Value Abnormality Reference (Units ) Status BUN 09/26/2023 08:52:21 66 Above high normal 6-20 (mg/dL) Final Creatinine 09/26/2023 08:52:21 4.0 Above high normal 0.6-1.2 (mg/dL) Final Glomerular filtration rate/1.73 sq M.predicted [Volume Rate/Area] in Serum, Plasma or Blood by Creatinine-based formula (CKD-EPI) 09/26/2023 08:52:21 15 Below low normal >=60 (mL/min) Final eGFR is calculated based on the CKD-EPI 2020 equation. Sodium 09/26/2023 08:52:21 138 135-146 (m mol/L) Final Potassium 09/26/2023 08:52:21 3.8 3.5-5.1 (m mol/L) Final Cl 09/26/2023 08:52:21 107 98-107 (mm ol/L) Final CO2 09/26/2023 08:52:21 15 Below low normal 22- 32 (mmol/L) Final Anion gap 09/26/2023 08:52:21 16 Above high normal 7- 15 (mmol/L) Final Glucose 09/26/2023 08:52:21 79 70-120 (mg /dL) Final Calcium 09/26/2023 08:52:21 7.5 Below low normal 8.4 -10.2 (mg/dL) Final Performing Location [facility] [place] [address] [place] [address]
--- OUTSIDE RECORDS SUMMARY | 2023-10-21 16:34 | External Medical Summary | Summary of Care ---
Author Name Unknown Organization [facility] Address [address] [facility] [place] [address] Phone [phone] Care Team Providers Care Guest Service Agent Name Role Phone Jocelyne Desai Primary Care Provider + [phone] Reason for Visit * Reason Comments Outpatient Testing Encounter Details Date Type Department Care Team (Late st Contact Info) Description 10/02/2023 1:50 PM EDT Laboratory Laboratory [address] [place] [phone] [place] [address] Iron deficiency anemia, unspecified iron deficiency anemia type; Chronic kidney disease (CKD), stage IV (severe) ([facility]) Allergies No known active allergiesdocumented as of this encounter (statuses as of 10/02/2023) Medications Medication Sig Dispensed Refills Start Date [...] as of this encounter (statuses as of 10/02/2023) Active Problems Patient Care Coordination No te Formatting of this note migh t be different from the original. Good connectivity [facility] for wound care [phone] Televideo if needed. Problem Noted Date Diagnosed [...] chart from [facility] podiatry they were unable to get in [...] ICD-10 update of inactive term PLATT RESEARCH OTHER*[id number] 02/20/2007 ADVANCE DIRECTIVE INFORMATION 01/19/2005 Overview: Yes, Patient instructed to provide copy of advance directive for provider to review and to be scanned into Electronic Medical Record No, Advance Directive brochure given to patient at prior appointment. SPINAL STENOSIS-LUMBAR 09/23/2002 Vitamin D deficiency Cervical spinal stenosis documented as of this encounter (statuses as of 10/02/2023) Resolved Problems Problem Noted Date Diagnosed Date [...] 11/17/19 23 LUMBAGO 12/24/2002 05/09/2007 LOC PRIM [id number] 12/24/200208/13 DEGENERATIVE SKIN DISORD 12/24/2002 VERTEBRAL FX [...] as of this encounter (statuses as of 10/02/2023) Immunizations Name Administration Dates Next Due COVID-19 mRNA, LNP-s, No Pre serve, 2-Dose Series (Moderna) 03/19/2020 COVID-19 mRNA, LNP-s, No Pre serve, 2-Dose Series (Pfizer) 02/16/2021,04/09/2020,03/19/2020 COVID-19, MRNA-LNP, 23-24, P F, 30 MCG/0.3 mL, 12 YRS AND ABOVE, IM (Space-Time Insight-Comirnaty) 11/16/2022 Covid-19, Mrna, Lnp-s, Pf, B ivalent, [...] No 02/16/2023 Does the household have a [facility] source of income? (Household - for [...] Contact Info) Description 10/09/2023 6:30 AM EDT [facility] Clinical Pharmacy Services, Ilya Lafleur [address] [place] [address] [place] [address] [place] [address] 11/20/2023 2:00 PM EDT Office Visit Nephrology [address] [place] [address] Marycarmen Kowalski PA-C [address] [place] [address] 01/19/2024 9:00 AM EST Office Visit Gastroenterology [address] [place] [address] Moon Avila CRNP [address] [place] [address] 02/20/2024 12:30 PM EST Nurse Only Ancillary [address] [place] [address] [place], Nurse [address] [place] [address] 03/08/2024 2:30 PM EST Office Visit Family Medicine [address] [place] [phone] Jocelyne Desai[address] [place] [address] Pending Results Name Type Priority Associated Diagnoses Date /Time CBC Lab Routine Iron deficiency anemia, unspecified iron deficiency anemia type 10/02/2023 1:56 PM EDT BASIC METABOLIC PANEL Lab Routine Chronic kidney disease (CKD), stage IV (severe) ([facility]) 10/02/2023 1:56 PM EDT Scheduled Procedures Name Priority Associated [...] 08/23/2023, 1005/2022, 11/09/2022, Additional history exists GFR 03/28/2024 09/26/2023, [...] this encounter Medical Devices Implanted Type Area Home Health Clinician Device Identifier Shelf Expiration Date Model / Serial / Lot Shaft Fibula 6cm [id number] - [id number] Implanted:Qty: 1 on 09/05/2008 [place] [facility] [place] - Human N/A: Spine Cervical MUSCULOSKELETAL TRANSPLANT FND 04/20/2010 [id number] / [id number] 0P / Stent Eso Gw 22x70 32364-854 - [id number] Implanted:Qty: 1 on 01/21/2008 at [place] [facility] [place] N/A: Esophagus ALVEOLUS INC 04/12/2009 79779-238 / / [id number] Depuy Uniplate 32 Implanted:Qty: 1 on 09/05/2008 at [place] [facility] [place] N/A: Spine Cervical TAMMY & TAMMY DEPUY 1897-02-302 / / Depuy Uniplate Screw 14mm Implanted:Qty: 2 on 09/05/2008 at [place] [facility] [place] N/A: Spine Cervical TAMMY & TAMMY DEPUY 1897-06-017 / / Depuy Lordotic Bengal Cage Implanted:Qty: 1 on 05/07/2010 at [place] [facility] [place] N/A: Neck 1773--146 / [id number] / Plate Zach 3 Level Ti 54mm - [id number] Implanted:Qty: 1 on 05/07/2010 at [place] [facility] [place] N/A: Neck JNJ : DEPUY SPINE [id number] / / Screw Zach Const St Ti 14mm - [id number] Implanted:Qty: 4 on 05/07/2010 at [place] [facility] [place] N/A: Neck JNJ : DEPUY SPINE [id number] 14 / / Screw 3.5x14 Mntr Fa [id number] - [id number] Implanted:Qty: 8 on 05/07/2010 at [place] [facility] [place] N/A: Spine Cervical JNJ : ETHICON CARDIOVATIONS [id number] / / Jarrell [id number] - [id number] Implanted:Qty: 1 on 05/07/2010 at [place] [facility] [place] N/A: Spine Cervical JNJ : ETHICON CARDIOVATIONS [id number] / / Screw Inner Mntr [id number] - [id number] Implanted:Qty: 8 on 05/07/2010 at [place] [facility] [place] N/A: Spine Cervical JNJ : ETHICON CARDIOVATIONS [id number] / / Envista Intraocular Lens Implanted:Qty: 1 on 03/10/2022 by Liang Marshall MD at [place] [facility] Right: Eye BAUSCH & LOMB 08/13/2023 [id number] / [id number] / [id number] Envista Intraocular Lens Implanted:Qty: 1 on 03/24/2022 by Liang Marshall MD at OR [facility] Left: Eye BAUSCH & LOMB 07/13/2024 [id number] / [id number] / [id number] documented as of this encounter Visit Diagnoses Diagnosis Iron deficiency anemia, unspecified iron deficiency anemia type Chronic kidney disease (CKD), stage IV (severe) (HCC) Chronic kidney disease, Stage IV (severe) documented in this encounter Advance Directives Documents on File Type Date Recorded 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 No Care Teams Guest Service Agent Relationship Specialty Start Date End Date Jocelyne Desai DO [address] [place] [address] [place] [phone] PCP - General Internal Medicine 11/09/16 documented as of this encounter
--- OUTSIDE RECORDS SUMMARY | 2023-10-21 16:34 | External Medical Summary | Summary of Care ---
Author Name Unknown Organization [facility] Address [address] [facility] [place] [address] Phone [phone] Care Team Providers Care Fire Captain Marine Name Role Phone Jocelyne Desai DO Primary Care Provider + [phone] Reason for Visit * Reason Comments Re-Check Encounter Details Date Type Department Care Team (Late st Contact Info) Description 09/27/2023 11:50 AM EDT Office Visit Family Medicine [address] [place] [address] Jocelyne Desai DO [address] [place] [address] [place] [address] Loss of weight*; Chronic kidney disease (CKD), stage IV (severe) ([facility]); Atrial fibrillation, unspecified type (HCC); SVT (supraventricular tachycardia) ([facility]); Iron deficiency anemia, unspecified iron deficiency anemia type; Poor appetite Allergies No known active allergiesdocumented as of this encounter (statuses as of 09/27/2023) Medications Medication Sig Dispensed Refills Start Date End Date Status ACETAMINOPHEN 500 MG PO TABS 2 tabs every 6 hours as needed for discomfort 4 Active Vitamin B-12 1000 MCG Oral Tablet (Cyanocobalamin ) Take 1 Tablet by mouth every evening. 30 Tablet 4 Active Flintstones w/Iron 18 MG Oral Tablet Chewable Take 1 Tablet by mouth every evening. 30 Tablet 4 Active Magnesium Oxide 400 MG Oral Capsule Take 1 Capsule by mouth in the morning. 30 Capsule 4 Active Sennosides-Docu sate Sodium 8.6-50 MG Oral Tablet (Senna S) Take 1 Tablet by mouth in the morning. 30 Tablet 4 Active Additional Information Patient not taking.Reported on 09/27/2023 Midodrine HCl 2.5 MG Oral Tablet (Proamatine) Take 1 Tablet by mouth in the morning and 1 Tablet at noon and 1 Tablet in the evening. 90 Tablet 2 4 Active Atorvastatin Calcium 40 MG Oral Tablet (Lipitor) Take 1 Tablet by mouth daily. 100 Tablet 2 4 Active Cyclobenzaprine HCl 10 MG Oral Tablet (Flexeril) Take 1 Tablet by mouth every 8 hours as needed for Muscle spasms. 270 Tablet 4 Active Metoprolol Succinate ER 25 MG Oral Tablet Extended Release 24 Hour (toPROL XL) Take 1 Tablet by mouth in the morning. 100 Tablet 3 4 Active Tamsulosin HCl 0.4 MG Oral Capsule (Flomax) Take 1 Capsule by mouth in the morning. 100 Capsule 3 4 Active Warfarin Sodium 3 MG Oral Tablet Take 1 Tablet by mouth every evening. As per anti-coagulation clinic. 100 Tablet 3 4 Active Aspirin 81 MG Oral Tablet Chewable Take 1 Tablet by mouth in the morning. with food.. 4 Active Torsemide 20 MG Oral Tablet (Demadex) Take 1 Tablet by mouth in the morning and 1 Tablet before bedtime. 4 Active Potassium Chloride Candi ER 20 MEQ Oral Tablet Extended Release Take 2 Tablets by mouth in the morning and 2 Tablets before bedtime. 09/06/23 Take 2 tablets in the morning 1 tablet before bed. 4 Active oxyCODONE HCl 5 MG Oral Tablet (Oxy IR) Take 1 Tablet by mouth every 6 hours as needed for Pain, Moderate or Pain, Severe. 30 Tablet 4 09/27/19 24 Discontinued Enoxaparin Sodium 100 MG/ML Injection Solution Prefilled Syringe (Lovenox)Indica tions:History of pulmonary embolism Inject 0.9ml (90mg) under the skin every 24 hours according to anticoagulation clinic 5 mL 4 09/27/19 24 Discontinued documented as of this encounter (statuses as of 09/27/2023) Active Problems Patient Care Coordination No te Formatting of this note migh t be different from the original. Good connectivity [facility] for wound care [phone] Televideo if needed. Problem Noted Date Diagnosed [...] podiatry,. Letter in chart from [facility] podiatry they were unable to get [...] ICD-10 update of inactive term PLATT RESEARCH OTHER*[id number] 02/20/2007 ADVANCE DIRECTIVE INFORMATION 01/19/2005 Overview: Yes, Patient instructed to provide copy of advance directive for provider to review and to be scanned into Electronic Medical Record No, Advance Directive brochure given to patient at prior appointment. SPINAL STENOSIS-LUMBAR 09/23/2002 Vitamin D deficiency Cervical spinal stenosis documented as of this encounter (statuses as of 09/27/2023) Resolved Problems Problem Noted Date Diagnosed Date [...] 11/17/19 23 LUMBAGO 12/24/2002 05/09/2007 LOC PRIM [id number] 12/24/200208/13 DEGENERATIVE SKIN DISORD 12/24/2002 VERTEBRAL FX [...] as of this encounter (statuses as of 09/27/2023) Immunizations Name Administration Dates Next Due COVID-19 mRNA, LNP-s, No Pre serve, 2-Dose Series (Moderna) 03/19/2020 COVID-19 mRNA, LNP-s, No Pre serve, 2-Dose Series (Pfizer) 02/16/2021,04/09/2020,03/19/2020 COVID-19, MRNA-LNP, 23-24, P F, 30 MCG/0.3 mL, 12 YRS AND ABOVE, IM ([email or web address]) 11/16/2022 Covid-19, Mrna, Lnp-s, Pf, B ivalent, [...] Sign Reading Time Taken Comments Blood Pressure 116/66 09/27/2023 11:38 AM EDT Pulse 69 09/27/2023 11:38 AM EDT Temperature 36 C (96.8 F) 09/27/2023 11:38 AM EDT Respiratory Rate - - Oxygen Saturation 96% 09/27/2023 11:38 AM EDT Inhaled Oxygen Concentration - - Weight 93.1 kg (205 lb 3.2 oz) 09/27/2023 11:38 AM EDT Height - - Body Mass Index 28.63 09/14/2023 11:47 AM EDT documented in this encounter Patient Instructions * Patient Instructions* Jocelyne Desai DO - 09/27/2023 12:12 PM EDT Torsemide: Do not take your evening dose on 09/27/23. Do not take any on 09/28/23. Starting on 09/29/23 take 1 torsemide in the morning. If you notice significant swelling, go back to 2 pills per day Repeat the blood work on Monday. documented in this encounter Progress Notes * Jocelyne Desai DO - 09/27/2023 11:43 AM EDT Subjective: Lg Cooley is a 73 year old male. Chief Complaint Patient presents with Re-Check HPI: Lg Cooley presents today for 1 month recheck. Today he reports that his appetite is better. His weight is up about 10# since his last visit. Energy is also a little better. He is taking iron daily. So far his imaging has shown an atrophic pancreas. He reports no diarrhea. PMH: Patient Active Problem List Diagnosis SPINAL STENOSIS-LUMBAR ADVANCE DIRECTIVE INFORMATION Vitamin D deficiency Cervical spinal stenosis Type 2 diabetes mellitus with hemoglobin A1c goal of less than 7.5% ([facility]) HTN, goal below 140/90 DYSLIPIDEMIA, GOAL LDL BELOW 100 PLATT RESEARCH OTHER*[id number] Erectile dysfunction DM neuropathy, type II diabetes mellitus ([facility]) Paroxysmal SVT (supraventricular tachycardia) ([facility]) Cardiac pacemaker in situ Venous insufficiency of both lower extremities Microalbuminuric diabetic nephropathy ([facility]) Chronic atrial fibrillation ([facility]) Peripheral sensory neuropathy Vitamin B12 deficiency Cerebrovascular disease, arteriosclerotic, 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 ([facility]) Type 2 diabetes, controlled, with peripheral neuropathy ([facility]) Type 2 diabetes mellitus with peripheral vascular disease ([facility]) Persistent proteinuria H/O gastric bypass residential current use of 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 Complex sleep apnea syndrome Nocturnal hypoxemia Type 2 diabetes mellitus with stage 3b chronic kidney disease, without long-term current use of insulin ([facility]) Sleep apnea treated with nocturnal BiPAP Hyperparathyroidism, secondary renal ([facility]) Diabetes mellitus due to underlying condition with severe nonproliferative diabetic retinopathy with macular edema, unspecified eye ([facility]) 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 kidney disease ([facility]) Esophageal obstruction S/P angioplasty with stent 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, without long-term current use of insulin ([facility]) Chronic kidney disease, stage 3b ([facility]) Non-pressure chronic ulcer of other part of right foot with unspecified severity ([facility]) Acquired absence of right great toe ([facility]) 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, with fat layer exposed ([facility]) History of IL (myocardial infarction) Trigger ring finger of left hand Full code status Calculus of gallbladder without cholecystitis without obstruction Stasis ulcer ([facility]) MRSA (methicillin resistant Staphylococcus aureus) Orthostatic hypotension Pressure injury of buttock, stage 2 ([facility]) Current Outpatient Medications Medication Sig Dispense Refill ACETAMINOPHEN 500 MG PO TABS 2 tabs every 6 hours as needed for discomfort Vitamin B-12 1000 MCG Oral Tablet (Cyanocobalamin) Take 1 Tablet by mouth every evening. 30 Tablet 0 Flintstones w/Iron 18 MG Oral Tablet Chewable Take 1 Tablet by mouth every evening. 30 Tablet 0 Magnesium Oxide 400 MG Oral Capsule Take 1 Capsule by mouth in the morning. 30 Capsule 0 Midodrine HCl 2.5 MG Oral Tablet (Proamatine) Take 1 Tablet by mouth in the morning and 1 Tablet atnoon and 1 Tablet in the evening. 90 Tablet 2 Atorvastatin Calcium 40 MG Oral Tablet (Lipitor) Take 1 Tablet by mouth daily. 100 Tablet 2 Cyclobenzaprine HCl 10 MG Oral Tablet (Flexeril) Take 1 Tablet by mouth every 8 hours as needed forMuscle spasms. 270 Tablet 0 Metoprolol Succinate ER 25 MG Oral Tablet Extended Release 24 Hour (toPROL XL) Take 1 Tablet by mouth in the morning. 100 Tablet 3 Tamsulosin HCl 0.4 MG Oral Capsule (Flomax) Take 1 Capsule by mouth in the morning. 100 Capsule 3 Warfarin Sodium 3 MG Oral Tablet Take 1 Tablet by mouth every evening. As per anti-coagulation clinic. 100 Tablet 3 Aspirin 81 MG Oral Tablet Chewable Take 1 Tablet by mouth in the morning. with food.. Torsemide 20 MG Oral Tablet (Demadex) Take 1 Tablet by mouth in the morning and 1 Tablet before bedtime. Potassium Chloride Candi ER 20 MEQ Oral Tablet Extended Release Take 2 Tablets by mouth in the morning and 2 Tablets before bedtime. 09/06/23 Take 2 tablets in the morning 1 tablet before bed. oxyCODONE HCl 5 MG Oral Tablet (Oxy IR) Take 1 Tablet by mouth every 6 hours as needed for Pain, Moderate or Pain, Severe. (Patient not taking: Reported on 09/27/2023) 30 Tablet 0 Sennosides-Docusate Sodium 8.6-50 MG Oral Tablet (Senna S) Take 1 Tablet by mouth in the morning. (Patient not taking: Reported on 09/27/2023) 30 Tablet 0 Enoxaparin Sodium 100 MG/ML Injection Solution Prefilled Syringe (Lovenox) Inject 0.9ml (90mg) under the skin every 24 hours according to anticoagulation clinic (Patient not taking: Reported on 09/27/2023) 5 mL 0 No current facility-administered medications for this visit. Review of patient's allergies indicates: No Known Allergies Objective: BP 116/66 | Pulse 69 | Temp 36 C (96.8 F) | Wt 93.1 kg (205 lb 3.2 oz) | SpO2 96% | BMI 28.63 kg/m | BSA 2.16 m General: alert, healthy, no distress, well nourished, and well developed Neck: supple Heart: regular rate & rhythm and no murmur Lungs: chest symmetric with normal AP diameter, no chest deformities noted, normal respiratory rateand rhythm, lungs clear to auscultation Abdomen: abdomen soft and non-tender Extremities: no joint deformities, effusion, or inflammation, minimal LE edema Neuro Exam: alert & oriented x 3 with fluent speech, no focal motor/sensory deficits, gait normal Skin: (+) wound vac on the RLE. ASSESSMENT/PLAN: Loss of weight (Primary) - his appetite has improved since his last visit and his weight is up today 10# without appreciable increase in edema. Chronic kidney disease (CKD), stage IV (severe) (HCC) - kidney function is worse. Will have him hold his torsemide this evening and tomorrow, then resume is daily until Monday when he will recheck his blood work. - BASIC METABOLIC PANEL; Future; Expected date: 10/02/2023 Atrial fibrillation, unspecified type (HCC) - on warfarin. SVT (supraventricular tachycardia) (HCC) Iron deficiency anemia, unspecified iron deficiency anemia type - continue iron supplement. It sounds like his blood counts may be improving as his energy is improving but will recheck counts on Monday. - CBC; Future; Expected date: 10/02/2023 Poor appetite - EGD was normal. Appetite is improving. Follow Up: Return for as scheduled. | For: as scheduled | Check-out note: Labs next month. Jocelyne Desai DO documented in this encounter Nursing Notes * Roslyn Baig CMA - 09/27/2023 11:36 AM EDT He is here for recheck. He says he isn't doing too bad. He is here to get to test results today. He has no new complaints while here. documented in this encounter Plan of Treatment Upcoming Encounters Date Type Department Care Team (Late st Contact Info) Description 10/09/2023 6:30 AM EDT Anticoagulation Centralized Clinical Pharmacy Services, Ilya Lafleur [address] [place] [address] [place] [address] [place] [address] 11/20/2023 2:00 PM EDT Office Visit Nephrology [address] [place] [address] ZemaMarycarmen lindsey PA-C [address] [place] [address] 01/19/2024 9:00 AM EST Office Visit Gastroenterology [address] [place] [address] Moon Avila, OLEG [address] [place] [address] 02/20/2024 12:30 PM EST Nurse Only Ancillary [address] [place] [address] Lesteralley, Nurse [address] [place] [address] 03/08/2024 2:30 PM EST Office Visit Family Medicine [address] [place] [phone] Jocelyne Desai, [address] [place] [address] Scheduled Orders Name Type Priority Associated Diagnoses Orde r Schedule CBC Lab Routine Iron deficiency anemia, unspecified iron deficiency anemia type Expected: 10/02/2023 (Approximate), Expires: 09/26/2024 BASIC METABOLIC PANEL Lab Routine Chronic kidney disease (CKD), stage IV (severe) (HCC) Expected: 10/02/2023 (Approximate), Expires: 09/26/2024 Scheduled Procedures Name Priority Associated Diagnoses Date/Ti [...] this encounter Medical Devices Implanted Type Area Liner Worker Device Identifier Shelf Expiration Date Model / Serial / Lot Shaft Fibula 6cm [id number] - [id number] Implanted:Qty: 1 on 09/05/2008 at OR [facility] Tissue - Human N/A: Spine Cervical MUSCULOSKELETAL TRANSPLANT FND 04/20/2010 [id number] / [id number] / Stent Eso Gw 22x70 [id number] - [id number] Implanted:Qty: 1 on 01/21/2008 at OR [facility] N/A: Esophagus [employer] 04/12/2009 [id number] / / [id number] Depuy Uniplate 32 Implanted:Qty: 1 on 09/05/2008 [...] [facility] N/A: Neck [id number] / [id number] / Plate Zach 3 Level Ti 54mm - [id number] Implanted:Qty: 1 on 05/07/2010 at OR [facility] N/A: Neck JNJ : DEPUY SPINE [id number] / / Screw Zach Const St Ti 14mm - [id number] Implanted:Qty: 4 on 05/07/2010 at OR [facility] N/A: Neck JNJ : DEPUY SPINE [id number] / / Screw 3.5x14 Mntr Fa [id number] - [id number] Implanted:Qty: 8 on 05/07/2010 at OR [facility] N/A: Spine Cervical JNJ : ETHICON [employer]ATIONS [id number] / / Jarrell [id number] - [id number] Implanted:Qty: 1 on 05/07/2010 at OR [facility] N/A: Spine Cervical JNJ : ETHICON [employer]ATIONS [id number] / / Screw Inner Mntr [id number] - [id number] Implanted:Qty: 8 on 05/07/2010 at OR [facility] N/A: Spine Cervical JNJ : ETH[employer]ON [employer] [id number] / / Envista Intraocular Lens Implanted:Qty: 1 on 03/10/2022 by Liang Marshall MD at OR [facility] Right: Eye BAUSCH [employer] LOMB 08/13/2023 [id number] / [id number] / [id number] Envista Intraocular Lens Implanted:Qty: 1 on 03/24/2022 by Liang Marshall MD at OR [facility] Left: Eye BAUSCH & LOMB 07/13/2024 [id number] / [id number] / [id number] documented as of this encounter Visit Diagnoses Diagnosis Loss of weight- Primary Chronic kidney disease (CKD), stage IV (severe) (HCC) Chronic kidney disease, Stage IV (severe) Atrial fibrillation, unspecified type (HCC) SVT (supraventricular tachycardia) (HCC) Other specified cardiac dysrhythmias Iron deficiency anemia, unspecified iron deficiency anemia type Poor appetite Anorexia documented in this encounter Advance Directives Documents on File Type Date Recorded 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 No Care Teams Fire Captain Marine Relationship Specialty Start Date End Date Jocelyne Desai DO [address] [place] [address] [place] [address] PCP - General Internal Medicine 11/09/16 documented as of this encounter"
--- OUTSIDE RECORDS SUMMARY | 2023-10-21 16:34 | External Medical Summary | Summary of Care ---
Author Name Unknown Organization [facility] Address [address] [facility] [place] [address] Phone [phone] Care Team Providers Care Provider Relations Consultant Name Role Phone Jocelyne Desai DO Primary Care Provider Reason for Visit * Reason Onset Date Comments Hospital Follow-Up 06/29/2023 Encounter Details Date Type Department Care Team (Late st Contact Info) Description 06/29/2023 Telephone General [facility] [address] Jocelyne Desai DO [address] [place] [address] [place] [phone] Hospital Follow-Up Allergies No known active allergiesdocumented as of this encounter (statuses as of 09/28/2023) Medications Medication Sig Dispensed Refills Start Date End Date Status ACETAMINOPHEN 500 MG PO TABS 2 tabs every 6 hours as needed for discomfort 11/01/2013 Active documented as of this encounter (statuses as of 09/28/2023) Active Problems Patient Care Coordination No te Formatting of this note migh t be different from the original. Good connectivity [facility] for wound care [phone] Televideo if needed. Problem Noted Date Diagnosed [...] up with podiatry,. Letter in chart from [facility] podiatry they were unable to get [...] 11/27/2018 H/O gastric bypass 11/27/2018 Overview: [facility] skilled nursing current use of 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 1 Status [...] ICD-10 update of inactive term PLATT RESEARCH OTHER*[id number] 02/20/2007 ADVANCE DIRECTIVE INFORMATION 01/19/2005 Overview: Yes, Patient instructed to provide copy of advance directive for provider to review and to be scanned into Electronic Medical Record No, Advance Directive brochure given to patient at prior appointment. SPINAL STENOSIS-LUMBAR 09/23/2002 Vitamin D deficiency Cervical spinal stenosis documented as of this encounter (statuses as of 09/28/2023) Resolved Problems Problem Noted Date Diagnosed Date [...] 11/17/19 23 LUMBAGO 12/24/2002 05/09/2007 LOC PRIM [id number] 12/24/200208/13 DEGENERATIVE SKIN DISORD 12/24/2002 VERTEBRAL FX [...] as of this encounter (statuses as of 09/28/2023) Immunizations Name Administration Dates Next Due COVID-19 [...] Telephone Encounter - Marisela Peraza LPN - 06/30/2023 2:18 PM EDT Orders placed and faxed to Radha Grimaldo with confirmation received [facility] Please schedule f/u apt as stated with Dr Agustin Looks like he is seen at [facility] * Telephone Encounter - Marisela Peraza LPN - 06/30/2023 1:07 PM EDT Please advise regarding f/u Thank you * Telephone Encounter - Byron Shi RN - 06/29/2023 3:04 PM EDT Patient discharged 06/27/2023 from [facility] to [facility] for rehab. Nephrology consulted for JORGE on CKD. Dr Jalloh and Dr Agustin saw the patient while admitted. Please assist with a follow up appointment. Thank you documented in this encounter Plan of Treatment Upcoming Encounters Date Type Department Care Team (Late st Contact Info) Description 10/09/2023 6:30 AM EDT Anticoagulation Centralized Clinical Pharmacy Services, Ilya Lafleur [address] [place] [address] [place] [address] [facility], [address] [place] [address] 11/20/2023 2:00 PM EDT Office Visit Nephrology [address] [place] [address] ZeMarycarmen alan PA-C [address] [facility] [place] [address] 01/19/2024 9:00 AM EST Office Visit Gastroenterology [address] [place] [address] Moon Avila CRNP [address] [place] [address] 02/20/2024 12:30 PM EST Nurse Only Ancillary [address] [place] [address] Moncho, Nurse Annual Wellness [address] [place] [address] [place] [address] 03/08/2024 2:30 PM EST Office Visit Family Medicine [address] [place] [phone] [place] [address] Scheduled Procedures Name Priority Associated Diagnoses Date/Ti [...] Depression Screening 02/17/2024 02/16/2023 HbA1c 02/23/2024 08/23/2023, 10/05/2022, 11/09/2022, Additional history exists GFR 03/28/2024 09/26/2023, [...] this encounter Medical Devices Implanted Type Area Fringing Machine Operator Device Identifier Shelf Expiration Date Model / Serial / Lot Shaft Fibula 6cm [id number] - [id number] Implanted:Qty: 1 on 09/05/2008 at [place] [facility] Tissue - Human N/A: Spine Cervical MUSCULOSKELETAL TRANSPLANT FND 04/20/2010 [id number] / [id number] 0P / Stent Eso Gw 22x70 [id number] - [id number] Implanted:Qty: 1 on 01/21/2008 at OR [facility] N/A: Esophagus [employer] 04/12/2009 [id number] / / [id number] Depuy Uniplate 32 Implanted:Qty: 1 on 09/05/2008 [...] Plate Zach 3 Level Ti 54mm - [id number] Implanted:Qty: 1 on 05/07/2010 at OR [facility] N/A: Neck JNJ : DEPUY SPINE [id number] / / Screw Zach Const St Ti 14mm - [id number] Implanted:Qty: 4 on 05/07/2010 at OR [facility] N/A: Neck JNJ : DEPUY SPINE [id number] 14 / / Screw 3.5x14 Mntr Fa [id number] - [id number] Implanted:Qty: 8 on 05/07/2010 at OR [facility] N/A: Spine Cervical JNJ : ETH[employer]ON [employer]ATIONS [id number] / / Jarrell [id number] - [id number] Implanted:Qty: 1 on 05/07/2010 at OR [facility] N/A: Spine Cervical JNJ : ETH[employer]ON [employer]ATIONS [id number] / / Screw Inner Mntr [id number] - [id number] Implanted:Qty: 8 on 05/07/2010 at OR [facility] N/A: Spine Cervical JNJ : ETH[employer]ON [employer]ARD[employer]ATIONS [id number] / / Envista Intraocular Lens Implanted:Qty: 1 on 03/10/2022 by Liang Marshall MD at OR [facility] Right: Eye BAUSCH & LOMB 08/13/2023 [id number] / [id number] / [id number] Envista Intraocular Lens Implanted:Qty: 1 on 03/24/2022 by Liang Marshall MD at OR [facility] Left: Eye BAUSCH & LOMB 07/13/2024 [id number] / [id number] / [id number] documented as of this encounter Visit Diagnoses Diagnosis HTN, goal below 140/90- Primary Unspecified essential hypertension JORGE (acute kidney injury) (HCC) Acute kidney failure, unspecified Chronic kidney disease, unspecified CKD stage documented in this encounter Advance Directives Documents on File Type Date Recorded Patient Social Services Manager Expl eyalion MAXWELL 01/26/2021 [place] [facility] FOR LIFE-SUSTAINING TREATMENT * No Code (Latest [...] Power of Attor andrew? No Care Teams Provider Relations Consultant Relationship Specialty Start Date End Date Jocelyne Desai DO [address] [place] [address] [place] [address] PCP - General Internal Medicine 11/09/16 documented as of this encounter
--- OUTSIDE RECORDS SUMMARY | 2023-10-21 16:35 | External Medical Summary | Summary of Care ---
Author Name Unknown Organization [facility] Address [address] [facility] [place] [address] Phone [phone] Care Team Providers Care Wordpress Developer Name Role Phone Jocelyne Desai DO Primary Care Provider Reason for Visit * Reason Onset Date Comments Home Health 09/08/2023 Encounter Details Date Type Department Care Team (Late st Contact Info) Description 09/08/2023 Telephone Family Medicine [address] [phone] Jocelyne Desai DO [address] [place] [address] [place] [address] Home Health Allergies No known active allergiesdocumented as of this encounter (statuses as of 09/12/2023) Medications Medication Sig Dispensed Refills Start Date [...] as of this encounter (statuses as of 09/12/2023) Active Problems Patient Care Coordination No te Formatting of this note migh t be different from the original. Good connectivity [facility] for wound care [phone] Televideo if needed. Problem Noted Date Diagnosed [...] podiatry,. Letter in chart from [facility] podiatry they were unable to get [...] ICD-10 update of inactive term PLATT RESEARCH OTHER*[id number] 02/20/2007 ADVANCE DIRECTIVE INFORMATION 01/19/2005 Overview: Yes, Patient instructed to provide copy of advance directive for provider to review and to be scanned into Electronic Medical Record No, Advance Directive brochure given to patient at prior appointment. SPINAL STENOSIS-LUMBAR 09/23/2002 Vitamin D deficiency Cervical spinal stenosis documented as of this encounter (statuses as of 09/12/2023) Resolved Problems Problem Noted Date Diagnosed Date [...] 11/17/19 23 LUMBAGO 12/24/2002 05/09/2007 LOC PRIM [id number] 12/24/200208/13 DEGENERATIVE SKIN DISORD 12/24/2002 VERTEBRAL FX [...] as of this encounter (statuses as of 09/12/2023) Immunizations Name Administration Dates Next Due COVID-19 [...] No 02/16/2023 Does the household have a [facility] source of income? (Household - for ages [...] Telephone Encounter - Belen Patino RN - 09/12/2023 10:46 AM EDT PH notified * Telephone Encounter - Pancho Tristan MD - 09/11/2023 8:34 AM EDT Hold aspirin 5 days * Telephone Encounter - Sofie Danielle RPh - 09/08/2023 1:36 PM EDT Per MD 'standard anticoagulant hold' recommended. Typically, ACC only advises on warfarin & enoxaparin. Please provide clarification regarding duration of hold of aspirin for procedure. Sofie Guillory PharmD Clinical Pharmacist [facility] ([facility]) [phone] 09/08/2023 1:37 PM * Telephone Encounter - Sofie Danielle RPh - 09/08/2023 1:32 PM EDT ACC advised patient on warfarin & lovenox instructions today for upcoming procedure 09/14/23 (seeletters for detailed instructions). Will route to gastroenterology team & provider to provide recommendations regarding aspirin. Sofie Guillory PharmD Clinical Pharmacist [facility] ([facility]) [phone] 09/08/2023 1:33 PM * Telephone Encounter - Sun Valle LPN - 09/08/2023 1:16 PM EDT Concerns Shanel PUENTE wardrobe supervisor Calling from: Josse Holliday Report/Concerns of: Medication Related Symptoms: none Narrative: Shanel, wardrobe supervisor calling from [facility]. Patient is on coumadin and Lovenox right now for bridge before procedure. Lovenox has a possible major interaction with Aspirin. Does the doctor want to continue aspirin? Call back Shanel with any advice or orders at [phone] Please fax new orders to [phone] documented in this encounter Plan of Treatment Upcoming Encounters Date Type Department Care Team (Latest Contact Info) Description 08/01/202 4 12:57 PM EDT Hospital Encounter OR [facility], Operating Room, [facility] - 4th Floor [address] [place] [address] Amarilys Jaquez MD [address] [place] [address] 4 12:57 PM EDT - 4 1:33 PM EDT Surgery OR [facility], Operating Room, [facility] - 4th Floor [address] [place] [address] Amarilys Jaquez MD [address] [place] [address] ESOPHAGOGASTRODUODENOSCOPY (EGD), FLEXIBLE, TRANSORAL, DIAGNOSTIC 4 6:30 AM EDT Anticoagulation Centralized Clinical Pharmacy Services, Ilya Lafleur [address] [place] [address] [place] [address] [facility], [address] [place] [address] 4 11:50 AM EDT Office Visit Family Medicine [address] [place] [phone] [address] [place] [address] 4 2:00 PM EDT Office Visit Nephrology [address] [place] [address] ZemaMarycarmen lindsey PA-C [address] [place] [address] 4 9:00 AM EST Office Visit Gastroenterolo gy [address] [place] [address] Moon Avila CRNP [address] [place] [address] 5 12:30 PM EST Nurse Only Ancillary [address] [place] [address] [place], Nurse Annual [address] [place] [address] 5 2:30 PM EST Office Visit Family Medicine [address] [place] [phone] Jocelyne Desai, [address] [place] [address] Scheduled Procedures Name Priority Associated Diagnoses Date/Ti me ESOPHAGOGASTRODUODENOSCOPY ( EGD), FLEXIBLE, TRANSORAL, DIAGNOSTIC Anorexia Weight loss 09/14/2023 12:57 PM EDT COLONOSCOPY FLEXIBLE PROXIMA L DIAGNOSTIC Recall Screening [...] 11/16/2022, 0 05/05/2021, 11/22/2017, Additional history exists Depression Screening 02/17/2024 02/16/2023 HbA1c 02/23/2024 08/23/2023, 1005/2022, 11/09/2022, Additional history exists GFR 03/06/2024 09/04/2023, 08/13, 08/28/2023, Additional history exists Albumin/Creatinine Ratio 07/17/2024 024, 11/16/2022, 05/13/2022, Additional history exists CKD HGB USE SMARTSET 90928 08/22/202408/22, 08/23/2023, 08/16/2023, Additional history exists CKD PHOS USE SMARTSET 03795 08/22/2024 07/, 07/18/2023, 07/03/2023, Additional history exists DTaP,Tdap,and Td Vaccines (3 - Td or Tdap) 12/01/2028 12/01/2018, 10/11/2007 Colonoscopy 09/09/2031 09/08/2021, 08/14, 09/23/2010 Colorectal Cancer Screening 09/09/2031 Hepatitis B Vaccine Completed 11/11/2002, 06/10/2002, 05/13/2002 Hepatitis C Screening Completed 10/31/2018, 018 Pneumococcal Vaccine: 65+ Years Completed 11/27/2018, 11/01/2017, 09/28/2005 Zoster Vaccines Completed 01/08/2019, 10/04/2018 HPV (Gardasil) Vaccine Aged Out No lo nger eligible based on patient's age to complete this topic MENINGOCOCCAL (MENACTRA/MENVEO) Aged Out No longer eligible based on patient's age to complete this topic documented as of this encounter Medical Devices Implanted Type Area Senior Water/Wastewater Engineer Device Identifier Shelf Expiration Date Model / Serial / Lot Shaft Fibula 6cm [id number] - [id number] Implanted:Qty: 1 on 09/05/2008 [place] [facility] [place] - Human N/A: Spine Cervical MUSCULOSKELETAL TRANSPLANT FND 04/20/2010 [id number] / [id number] 0P / Stent Eso Gw 22x70 53382-760 - [id number] Implanted:Qty: 1 on 01/21/2008 at [place] [facility] [place] N/A: Esophagus ALVE[employer]US INC 04/12/2009 94686-310 / / [id number] Depuy Uniplate 32 Implanted:Qty: 1 on 09/05/2008 at [place] [facility] [place] N/A: Spine Cervical TAMMY & TAMMY DEPUY 1897-02-302 / / Depuy Uniplate Screw 14mm Implanted:Qty: 2 on 09/05/2008 at [place] [facility] [place] N/A: Spine Cervical TAMMY & TAMMY DEPUY 1897-06-017 / / Depuy Lordotic Bengal Cage Implanted:Qty: 1 on 05/07/2010 at [place] [facility] [place] N/A: Neck 1773-06-146 / 1773-06-146 / Plate Zach 3 Level Ti 54mm - [id number] Implanted:Qty: 1 on 05/07/2010 at [place] [facility] [place] N/A: Neck JNJ : DEPUY SPINE [id number] / / Screw Zach Const St Ti 14mm - [id number] Implanted:Qty: 4 on 05/07/2010 at [place] [facility] [place] N/A: Neck JNJ : DEPUY SPINE [id number] 14 / / Screw 3.5x14 Mntr Fa [id number] - [id number] Implanted:Qty: 8 on 05/07/2010 at [place] [facility] [place] N/A: Spine Cervical JNJ : ETHICON CARDIOVATIONS [id number] / / Jarrell [id number] - [id number] Implanted:Qty: 1 on 05/07/2010 at [place] [facility] [place] N/A: Spine Cervical JNJ : ETHICON CARDIOVATIONS [id number] / / Screw Inner Mntr [id number] - [id number] Implanted:Qty: 8 on 05/07/2010 at [place] [facility] [place] N/A: Spine Cervical JNJ : ETHICON CARDIOVATIONS [id number] / / Envista Intraocular Lens Implanted:Qty: 1 on 03/10/2022 by Liang Marshall MD at OR [facility] Right: Eye BAUSCH & LOMB 08/13/2023 [id number] / [id number] / [id number] Envista Intraocular Lens Implanted:Qty: 1 on 03/24/2022 by Liang Marshall MD at OR [facility] Left: Eye BAUSCH & LOMB 07/13/2024 [id number] / [id number] / [id number] documented as of this encounter Advance Directives Documents on File Type Date Recorded Patient 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 No Care Teams Wordpress Developer Relationship Specialty Start Date End Date Jocelyne Desai DO [address] [place] [address] [place] [address] PCP - General Internal Medicine 11/09/16 documented as of this encounter
--- OUTSIDE RECORDS SUMMARY | 2023-10-21 16:35 | External Medical Summary | Summary of Care ---
Author Name Unknown Organization [facility] Address [address] [place] [address] Phone [phone] Care Team Providers Care Merchandising Representative Name Role Phone Jocelyne Desai Primary Care Provider [phone] Encounter Details Date Type Department Care Team (Late st Contact Info) Description 09/11/2023 10:30 AM EDT Scheduled Telephone Care Coordination and Integration [address] [place], [place] [id number] Estefania Jaquez, [facility] In Waiter/Waitress [address] [place] [address] Allergies No known active allergiesdocumented as of this encounter (statuses as of 09/11/2023) Medications Medication Sig Dispensed Refills Start Date [...] as of this encounter (statuses as of 09/11/2023) Active Problems Patient Care Coordination No te Formatting of this note migh t be different from the original. Good connectivity [facility] for wound care [phone] Televideo if needed. Problem Noted Date Diagnosed [...] up with podiatry,. Letter in chart from [facility] podiatry they were unable to [...] ICD-10 update of inactive term PLATT RESEARCH OTHER*[id number] 02/20/2007 ADVANCE DIRECTIVE INFORMATION 01/19/2005 Overview: Yes, Patient instructed to provide copy of advance directive for provider to review and to be scanned into Electronic Medical Record No, Advance Directive brochure given to patient at prior appointment. SPINAL STENOSIS-LUMBAR 09/23/2002 Vitamin D deficiency Cervical spinal stenosis documented as of this encounter (statuses as of 09/11/2023) Resolved Problems Problem Noted Date Diagnosed Date [...] 11/17/19 23 LUMBAGO 12/24/2002 05/09/2007 LOC PRIM [id number] 12/24/200208/13 DEGENERATIVE SKIN DISORD 12/24/2002 VERTEBRAL FX [...] as of this encounter (statuses as of 09/11/2023) Immunizations Name Administration Dates Next Due COVID-19 [...] of this encounter Progress Notes * Estefania Jaquez, [facility] In Waiter/Waitress - 09/11/2023 10:37 AM EDT Telemedicine visit: No [facility] Waiter/Waitress (KELLY) documentation: CHW placed 4th f/u call to patient Patient reported that he has his endoscopy 09/13. He has HH coming in Mondays and Fridays for his wound and Wednesdays he goes to the wound clinic. He is on a antibiotic currently as well. He is still on the wound vac. His breathing is getting better. CHW encouraged patient to reach out to CM with any concerns or questions moving forward. Estefania Jaquez- Community Health Worker 1 Support Services/[facility] [email or web address] documented in this encounter Plan of Treatment Upcoming Encounters Date Type Department Care Team (Latest Contact Info) Description 4 12:57 PM EDT Hospital Encounter OR [facility], Operating Room, [facility] - 4th Floor [address] [place] [address] Amarilys Jaquez MD [address] [place] [address] 4 12:57 PM EDT - 4 1:33 PM EDT Surgery OR [facility], Operating Room, [facility] - 4th Floor [address] [place] [address] Amarilys Jaquez MD [address] [place] [address] ESOPHAGOGASTRODUODENOSCOPY (EGD), FLEXIBLE, TRANSORAL, DIAGNOSTIC 4 6:30 AM EDT Anticoagulation Centralized Clinical Pharmacy Services, Ilya Lafleur [address] [place] [address] [place] [address] [place] [address] 4 11:50 AM EDT Office Visit Family Medicine [address] [place] [phone] Jocelyne Desai[address] [place] [address] 4 2:00 PM EDT Office Visit Nephrology [address] [place] [address] ZeMarycarmen alan PA-C [address] [place] [address] 4 9:00 AM EST Office Visit Gastroenterolo gy [address] [place] [address] Moon Avila CRNP [address] [place] [address] 5 12:30 PM EST Nurse Only Ancillary [address] [place] [address] [place], Nurse [address] [place] [address] 5 2:30 PM EST Office Visit Family Medicine [address] [place] [phone] Jocelyne Desai, [address] [place] [address] Scheduled Procedures Name Priority Associated Diagnoses Date/Ti [...] Additional history exists CKD HGB USE SMARTSET 40787 08/22/202408/22, 08/23/2023, 08/16/2023, Additional history exists CKD PHOS USE SMARTSET 39730 08/22/202408/13, 07/18/2023, 07/03/2023, Additional history exists DTaP,Tdap,and [...] this encounter Medical Devices Implanted Type Area Cash Management Officer Device Identifier Shelf Expiration Date Model / Serial / Lot Shaft Fibula 6cm 146771 - [id number] Implanted:Qty: 1 on 09/05/2008 at [place] [facility] [place] Tissue - Human N/A: Spine Cervical MUSCULOSKELETAL TRANSPLANT FND 04/20/2010 249056 / [id number] 0P / Stent Eso Gw 22x70 49307-485 - [id number] Implanted:Qty: 1 on 01/21/2008 at OR [facility] N/A: Esophagus AL[employer]OLUS INC 04/12/2009 73169-314 / / [id number] Depuy Uniplate 32 Implanted:Qty: 1 on 09/05/2008 at OR [facility] N/A: Spine Cervical TAMMY & TAMMY DEPUY 1897-02-302 / / Depuy Uniplate Screw 14mm Implanted:Qty: 2 on 09/05/2008 at OR [facility] N/A: Spine Cervical TAMMY & TAMMY DEPUY 189-06-017 / / Depuy Lordotic Bengal Cage Implanted:Qty: 1 on 05/07/2010 at OR [facility] N/A: Neck 1773-06-146 / 1773-146 / Plate Zach 3 Level Ti 54mm - [id number] Implanted:Qty: 1 on 05/07/2010 at OR [facility] N/A: Neck JNJ : DEPUY SPINE [id number] 54 / / Screw Zach Const St Ti 14mm - [id number] Implanted:Qty: 4 on 05/07/2010 at OR [facility] N/A: Neck JNJ : DEPUY SPINE [id number] 14 / / Screw 3.5x14 Mntr Fa [id number] - [id number] Implanted:Qty: 8 on 05/07/2010 at OR [facility] N/A: Spine Cervical JNJ : ETHICON CARDIOVATIONS [id number] / / Jarrell [id number] - [id number] Implanted:Qty: 1 on 05/07/2010 at OR [facility] N/A: Spine Cervical JNJ : ETHICON CARDIOVATIONS [id number] / / Screw Inner Mntr [id number] - [id number] Implanted:Qty: 8 on 05/07/2010 at OR [facility] N/A: Spine Cervical JNJ : ETHICON CARDIOVATIONS [id number] / / Envista Intraocular Lens Implanted:Qty: 1 on 03/10/2022 by Liang Marshall MD at OR [facility] Right: Eye BAUSCH & LOMB 08/13/2023 [id number] / [id number] / [id number] Envista Intraocular Lens Implanted:Qty: 1 on 03/24/2022 by Liang Marshall MD at OR [facility] Left: Eye BAUSCH & LOMB 07/13/2024 [id number] / [id number] / [id number] documented as of this encounter Advance Directives Documents on File Type Date Recorded Patient Er Tech Torres ARREOLA 01/26/2021 [place] OR [facility] FOR LIFE-SUSTAINING TREATMENT * No [...] Power of Attor andrew? No Care Teams Merchandising Representative Relationship Specialty Start Date End Date Jocelyne Desai DO [address] [place] [address] [place] [address] PCP - General Internal Medicine 11/09/16 documented as of this encounter
--- OUTSIDE RECORDS SUMMARY | 2023-10-21 16:35 | External Medical Summary | Summary of Care ---
Author Name Unknown Organization [facility] Address [address] [facility] [place] [address] Phone [phone] Care Team Providers Care Manager Club Name Role Phone Jocelyne Desai DO Primary Care Provider + [phone] Reason for Visit * Reason Onset Date Comments Information 09/23/2023 Encounter Details Date Type Department Care Team (Late st Contact Info) Description 09/23/2023 Telephone Family Practice [facility] [address] [facility] [place] [address] Jocelyne Desai DO [address] [place] [address] [place] [address] Information Allergies No known active allergiesdocumented as of this encounter (statuses as of 09/23/2023) Medications Medication Sig Dispensed Refills Start Date [...] as of this encounter (statuses as of 09/23/2023) Active Problems Patient Care Coordination No te Formatting of this note migh t be different from the original. Good connectivity [facility] for wound care [phone] Televideo if needed. 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 He has significant history DM and PVD and recommended he still follow up with podiatry,. Letter in chart from [facility] podiatry they were unable to [...] ICD-10 update of inactive term PLATT RESEARCH OTHER*[id number] 02/20/2007 ADVANCE DIRECTIVE INFORMATION 01/19/2005 Overview: Yes, Patient instructed to provide copy of advance directive for provider to review and to be scanned into Electronic Medical Record No, Advance Directive brochure given to patient at prior appointment. SPINAL STENOSIS-LUMBAR 09/23/2002 Vitamin D deficiency Cervical spinal stenosis documented as of this encounter (statuses as of 09/23/2023) Resolved Problems Problem Noted Date Diagnosed Date Resolved Date Depression, unspecified 11/09/2021 03/2 Depression, unspecified 11/09/2021 100 05/2022 Cellulitis of right leg 07/13/20210 05/2022 Last Assessment & Plan: Suspect this could be early/localized. Will treat with 7 days antibiotic. If pt cannot be reassess by Dr. Braxton office early next week will need [facility] provider recheck Multiple and open wound [...] 11/17/19 23 LUMBAGO 12/24/2002 05/09/2007 LOC PRIM [id number] 12/24/200208/13 DEGENERATIVE SKIN DISORD 12/24/2002 VERTEBRAL FX [...] as of this encounter (statuses as of 09/23/2023) Immunizations Name Administration Dates Next Due COVID-19 [...] encounter Miscellaneous Notes * Telephone Encounter - Janice Shaw LPN - 09/23/2023 12:31 PM EDT Pt notified, verbalized understanding. * Telephone Encounter - Jocelyne Desai DO - 09/23/2023 12:24 PM EDT Please call patient: Given his symptoms, I would like to check his 8 AM cortisol level. He should fast for 10-12 hours before having this drawn and have it drawn as close to 8 AM as possible. If his level is low, this could explain a lot of his symptoms. Notify pt. documented in this encounter Plan of Treatment Upcoming Encounters Date Type Department Care Team (Late st Contact Info) Description 09/25/2023 6:30 AM EDT Anticoagulation Centralized Clinical Pharmacy Services, Ilya Lafleur [address] [place] [address] [place] [address] [facility], [address] [place] [address] 09/27/2023 11:50 AM EDT Office Visit Family Medicine [address] [place] [phone] Jocelyne Desai DO [address] [place] [address] [place] [address] 11/20/2023 2:00 PM EDT Office Visit Nephrology [address] [place] [address] ZemaitisMarycarmen PA-C [address] [facility] [place] [address] 01/19/2024 9:00 AM EST Office Visit Gastroenterology [address] [place] [address] Moon Aivla CRNP [address] [place] [address] 02/20/2024 12:30 PM EST Nurse Only Ancillary [address] [place] [address] [place], Nurse Annual Wellness [address] [place] [address] [place] [address] 03/08/2024 2:30 PM EST Office Visit Family Medicine [address] [place] [phone] [address] [place] [address] Scheduled Orders Name Type Priority Associated Diagnoses Orde r Schedule CORTISOL Lab Routine Loss of weight Poor appetite Expected: 09/23/2023 (Approximate), Expires: 09/22/2024 Scheduled Procedures Name Priority Associated Diagnoses Date/Ti [...] 11/09/2022, Additional history exists GFR 03/06/2024 09/04/2023, 0706/2023, 08/28/2023, Additional history exists Albumin/Creatinine Ratio 07/17/20242 024, 11/16/2022, 05/13/2022, Additional history exists CKD HGB USE SMARTSET 39660 08/22/202408/22, 08/23/2023, 08/16/2023, Additional history exists CKD PHOS USE SMARTSET 88825 08/22/202408/13, 07/18/2023, 07/03/2023, Additional history exists DTaP,Tdap,and [...] this encounter Medical Devices Implanted Type Area Public Health Engineer Device Identifier Shelf Expiration Date Model / Serial / Lot Shaft Fibula 6cm [id number] - [id number] Implanted:Qty: 1 on 09/05/2008 at [place] [facility] [place] Tissue - Human N/A: Spine Cervical MUSCULOSKELETAL TRANSPLANT FND 04/20/2010 [id number] / [id number] 0P / Stent Eso Gw 22x70 97176-164 - [id number] Implanted:Qty: 1 on 01/21/2008 at [place] [facility] N/A: Esophagus ALVEOLUS INC 04/12/2009 50937-820 / / [id number] Depuy Uniplate 32 Implanted:Qty: 1 on 09/05/2008 [...] [facility] [place] Neck 1773-06-146 / 1773-06-146 / Plate Zach 3 Level Ti 54mm - [id number] Implanted:Qty: 1 on 05/07/2010 at [place] [facility] N/A: Neck JNJ : DEPUY SPINE [id number] 54 / / Screw Zach Const St Ti 14mm - [id number] Implanted:Qty: 4 on 05/07/2010 at [place] [facility] N/A: Neck JNJ : DEPUY SPINE [id number] 14 / / Screw 3.5x14 Mntr Fa [id number] - [id number] Implanted:Qty: 8 on 05/07/2010 at [place] [facility] N/A: Spine Cervical JNJ : ETHICON CARDIOVATIONS [id number] / / Jarrell [id number] - [id number] Implanted:Qty: 1 on 05/07/2010 at [place] [facility] N/A: Spine Cervical JNJ : ETHICON CARDIOVATIONS [id number] / / Screw Inner Mntr [id number] - [id number] Implanted:Qty: 8 on 05/07/2010 at [place] [facility] [place] N/A: Spine Cervical JNJ : ETHICON CARDIOVATIONS [id number] / / Envista Intraocular Lens Implanted:Qty: 1 on 03/10/2022 by Liang Marshall MD at OR [facility] Right: Eye BAUSCH & LOMB 08/13/2023 [id number] / [id number] / [id number] Envista Intraocular Lens Implanted:Qty: 1 on 03/24/2022 by Liang Marshall MD at OR [facility] Left: Eye BAUSCH & LOMB 07/13/2024 [id number] / [id number] / [id number] documented as of this encounter Visit Diagnoses Diagnosis Loss of weight- Primary Poor appetite Anorexia documented in this encounter Advance Directives Documents on File Type Date Recorded Patient Pepper Picker Expl anation POL 01/26/2021 [place] [facility] [...] Power of Attor andrew? No Care Teams Manager Club Relationship Specialty Start Date End Date Jocelyne Desai DO [address] [place] [address] [place] [address] PCP - General Internal Medicine 11/09/16 documented as of this encounter
--- OUTSIDE RECORDS SUMMARY | 2023-10-21 16:35 | External Medical Summary | Summary of Care ---
Author Name Unknown Organization [facility] Address [address] [facility] [place] [address] Phone [phone] Care Team Providers Care Account Manager B2B Name Role Phone Jocelyne Desai Primary Care Provider [phone] Encounter Details Date Type Department Care Team (Late st Contact Info) Description 09/25/2023 Population Health External Data Unspecified Department Allergies [...] be different from the original. Good connectivity [facility] for wound care [phone] Televideo if needed. Problem Noted Date Diagnosed [...] with podiatry,. Letter in chart from [facility] podiatry they were unable to [...] ICD-10 update of inactive term PLATT RESEARCH OTHER*[id number] 02/20/2007 ADVANCE DIRECTIVE INFORMATION 01/19/2005 Overview: Yes, [...] 02/27/2003 11/17/19 LUMBAGO 12/24/2002 05/09/2007 LOC PRIM [id number] 12/24/200208/13 DEGENERATIVE SKIN DISORD 12/24/2002 VERTEBRAL FX [...] No 02/16/2023 Does the household have a [facility] source of income? (Household - for [...] AM EDT Office Visit Family Medicine [address] [place] [phone] [place] [address] 11/20/2023 2:00 PM EDT Office Visit Nephrology [address] [place] [address] Marycarmen Kowalski PA-C [address] [place] [address] 01/19/2024 9:00 AM EST Office Visit Gastroenterology [address] [place] [address] Moon Avila CRNP [address] [place] [address] 02/20/2024 12:30 PM EST Nurse Only Ancillary [address] [place] [address] [place], Nurse Annual Wellness [address] [place] [address] [place] [address] 03/08/2024 2:30 PM EST Office Visit Family Medicine [address] [place] [phone] [place] [address] Scheduled Procedures Name Priority Associated Diagnoses Date/Ti [...] 08/23/2023, 05/2022, 11/09/2022, Additional history exists GFR 03/06/2024 09/04/2023, 08/13, 08/28/2023, Additional history exists Albumin/Creatinine Ratio 07/17/2024 024, 11/16/2022, 05/13/2022, Additional history exists CKD HGB USE SMARTSET 02585 08/22/202408/22, 08/23/2023, 08/16/2023, Additional history exists CKD PHOS USE SMARTSET 90609 08/22/202408/13, 07/18/2023, 07/03/2023, Additional history exists DTaP,Tdap,and [...] this encounter Medical Devices Implanted Type Area Ski Patrol Device Identifier Shelf Expiration Date Model / Serial / Lot Shaft Fibula 6cm [id number] - [id number] Implanted:Qty: 1 on 09/05/2008 at OR [facility] [place] Tissue - Human N/A: Spine Cervical MUSCULOSKELETAL TRANSPLANT FND 04/20/2010 [id number] / [id number] 0P / Stent Eso Gw 22x70 19623-083 - [id number] Implanted:Qty: 1 on 01/21/2008 at OR [facility] [place] N/A: Esophagus [employer] 04/12/2009 40380-573 / / [id number] Depuy Uniplate 32 Implanted:Qty: 1 on 09/05/2008 [...] Plate Zach 3 Level Ti 54mm - [id number] Implanted:Qty: 1 on 05/07/2010 at OR [facility] [place] N/A: Neck JNJ : DEPUY SPINE [id number] / / Screw Zach Const St Ti 14mm - [id number] Implanted:Qty: 4 on 05/07/2010 at OR [facility] [place] N/A: Neck JNJ : DEPUY SPINE [id number] 14 / / Screw 3.5x14 Mntr Fa [id number] - [id number] Implanted:Qty: 8 on 05/07/2010 at OR [facility] [place] N/A: Spine Cervical JNJ : ETHICON CARDIOVATIONS [id number] / / Jarrell 3.1p292yo [id number] - [id number] Implanted:Qty: 1 on 05/07/2010 at OR [facility] [place] N/A: Spine Cervical JNJ : ETHICON CARDIOVATIONS [id number] / / Screw Inner Mntr [id number] - [id number] Implanted:Qty: 8 on 05/07/2010 at OR [facility] [place] N/A: Spine Cervical JNJ : ETHICON CARDIOVATIONS [id number] / / Envista Intraocular Lens Implanted:Qty: 1 on 03/10/2022 by Liang Marshall MD at OR [facility] Right: Eye BAUSCH & LOMB 08/13/2023 [id number] / [id number] / [id number] Envista Intraocular Lens Implanted:Qty: 1 on 03/24/2022 by Liang Marshall MD at OR [facility] Left: Eye BAUSCH & LOMB 07/13/2024 [id number] / [id number] / [id number] documented as of this encounter Advance Directives Documents on File Type Date Recorded Patient Scrap Sawyer Torres ARREOLA 01/26/2021 [place] [facility] FOR LIFE-SUSTAINING TREATMENT * No Code (Latest [...] Power of Attor andrew? No Care Teams Account Manager B2B Relationship Specialty Start Date End Date Jocelyne Desai DO [address] [place] [address] [place] [address] PCP - General Internal Medicine 11/09/16 documented as of this encounter
--- OUTSIDE RECORDS SUMMARY | 2023-10-21 16:35 | External Medical Summary | Summary of Care ---
Author Name Unknown Organization [facility] Address [address] [facility] [place] [address] Phone [phone] Care Team Providers Care Council Member Name Role Phone Jocelyne Desai DO Primary Care Provider [phone] Encounter Details Date Type Department Care Team (Late st Contact Info) Description 09/22/2023 Result Scan Unspecified Department <No scans attached> [...] [facility] for wound care [phone] Televideo if needed. Problem Noted Date Diagnosed [...] podiatry,. 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 (Household - for [...] 11:50 AM EDT Office Visit Family Medicine [address] [place] [phone] [address] [place] [address] 11/20/2023 2:00 PM EDT Office Visit Nephrology [address] [place] [address] Marycarmen Kowalski PA-C [address] [place] [facility] [place] [address] 01/19/2024 9:00 AM EST Office Visit Gastroenterology [address] [place] [address] Moon Avila, ACCOUNTING ADMINISTRATIVE ASSISTANT [address] [place] [address] 02/20/2024 12:30 PM EST Nurse Only Ancillary [address] [place] [address] [place], Nurse Annual Wellness [address] [place] [address] [place] [address] 03/08/2024 2:30 PM EST Office Visit Family Medicine [address] [place] [phone] [address] [place] [address] Scheduled Procedures Name Priority Associated Diagnoses Date/Ti [...] Additional history exists CKD HGB USE SMARTSET 10136 08/22/202408/22, 08/23/2023, 08/16/2023, Additional history exists CKD PHOS USE SMARTSET 22798 08/22/202408/13, 07/18/2023, 07/03/2023, Additional history exists DTaP,Tdap,and [...] this encounter Medical Devices Implanted Type Area Crocodile Farmer Device Identifier Shelf Expiration Date Model / Serial / Lot Shaft Fibula 6cm 191705 - [id number] Implanted:Qty: 1 on 09/05/2008 at [place] [facility] [place] Tissue - Human N/A: Spine Cervical MUSCULOSKELETAL TRANSPLANT FND 04/20/2010 [id number] / [id number] 0P / Stent Eso Gw 22x70 06540-399 - [id number] Implanted:Qty: 1 on 01/21/2008 at [place] [facility] N/A: Esophagus [employer]US INC 04/12/2009 82006-402 / / [id number] Depuy Uniplate 32 Implanted:Qty: 1 on 09/05/2008 [place] [facility] [place]A: Neck 1773--146 / [id number] / Plate Zach 3 Level Ti 54mm - [id number] Implanted:Qty: 1 on 05/07/2010 at [place] [facility] N/A: Neck JNJ : DEPUY SPINE [id number] 54 / / Screw Zach Const St Ti 14mm - [id number] Implanted:Qty: 4 on 05/07/2010 at [place] [facility] N/A: Neck JNJ : DEPUY SPINE [id number] 14 / / Screw 3.5x14 Mntr Fa [id number] - [id number] Implanted:Qty: 8 on 05/07/2010 at [place] [facility] N/A: Spine Cervical JNJ : ETHICON CARDIOVATIONS [id number] / / Jarrell 3.2u633al [id number] - [id number] Implanted:Qty: 1 on 05/07/2010 at [place] [facility] N/A: Spine Cervical JNJ : ETHICON CARDIOVATIONS [id number] / / Screw Inner Mntr [id number] - [id number] Implanted:Qty: 8 on 05/07/2010 at [place] [facility] N/A: Spine Cervical JNJ : ETHICON CARDIOVATIONS [id number] / / Envista Intraocular Lens Implanted:Qty: 1 on 03/10/2022 by Liang Marshall MD at OR [facility] Right: Eye BAUSCH & LOMB 08/13/2023 [id number] / [id number] / [id number] Envista Intraocular Lens Implanted:Qty: 1 on 03/24/2022 by Liang Marshall MD at OR [facility] Left: Eye BAUSCH & LOMB 07/13/2024 [id number] / [id number] / [id number] documented as of this encounter Procedures Procedure Name Priority Date/Time Associated Diagnosis Comments OUTSIDE LAB RESULTS 09/22/2023 documented in this encounter Results * OUTSIDE LAB RESULTS (09/22/2023) 09/22/2023 No Physician Data Unknown LABORATORY documented in this encounter Advance Directives Documents on File Type Date Recorded 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 No Care Teams Council Member Relationship Specialty Start Date End Date Jocelyne Desai DO [address] [place] [address] [place] [phone] PCP - General Internal Medicine 11/09/16 documented as of this encounter
--- OUTSIDE RECORDS SUMMARY | 2023-10-21 16:35 | External Medical Summary | Summary of Care ---
Author Name Unknown Organization [facility] Address [address] [facility] [place] [address] Phone [phone] Care Team Providers Care Vehicle Fare Collector Name Role Phone DesaiElissaJocelynejohn Briggs DO Primary Care Provider + [phone] Reason for Visit * Reason Comments Dosage Adjustment Via Phone (anticoag Cl inic) Encounter Details Date Type Department Care Team (Late st Contact Info) Description 09/25/2023 6:30 AM EDT Anticoagulation Centralized Clinical [facility] Services, Ilya Lafleur [address] [place] [address] [place] [address] [facility], [address] [place] [address] Chronic atrial fibrillation (HCC)* Allergies No known [...] be different from the original. Good connectivity [facility] for wound care [phone] Televideo if needed. Problem Noted Date Diagnosed [...] up with podiatry,. 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 [...] ICD-10 update of inactive term PLATT RESEARCH OTHER*[id number] 02/20/2007 ADVANCE DIRECTIVE INFORMATION 01/19/2005 Overview: Yes, [...] 11/17/19 23 LUMBAGO 12/24/2002 05/09/2007 LOC PRIM [id number] 12/24/200208/13 DEGENERATIVE SKIN DISORD 12/24/2002 VERTEBRAL FX [...] as of this encounter Progress Notes * Korin Meléndez, music specialist - 09/25/2023 10:09 AM EDT Contacts Type Contact Phone/Fax 09/25/2023 10:07 AM EDT Phone (Outgoing) Lg Cooley "Akshat" (Self) [phone] (H) Spoke to Patient Subjective Patient Findings [...] communicated as noted by Pharmacist: Yes AMOS ARAMBULA 09/25/2023, 10:09 AM * Estefania Palacios RPh - 09/25/2023 8:59 AM EDT Images from the original note were not included. Coumadin Clinic (region specific) Objective Current Warfarin Dose As of 09/25/2023 Warfarin maintenance plan: 3 mg (3 mg x 1) every Sun, Tue, Mariel; 1.5 mg (3 mg x 0.5) all other days INR Result As of 09/25/2023 INR goal: 2.0-3.0 INR used for dosin.84 (09/22/2023) Assessment & Plan Warfarin Plan As of 09/25/2023 Full warfarin instructions: 09/24: Hold; 09/25: Hold; Otherwise 3 mg every Tue, Mariel; 1.5 mg all otherdays Next INR check: 10/06/2023 Repeat PT/INR in 2 week(s) Weekly dose: decreased Additional Dosing Information: Description [facility] Nurses -- Mondays and Fridays ; fax - [phone] ([facility]) Tech to contact patient with dose instructions as noted. Estefania Palacios RPh 09/25/2023, 9:00 AM documented in this encounter Plan of Treatment Upcoming Encounters Date Type Department Care Team (Late st Contact Info) Description 09/27/2023 11:50 AM EDT Office Visit Family Medicine [address] [place] [phone] Jocelyne Desai[address] [place] [address] 10/09/2023 6:30 AM EDT Anticoagulation Centralized Clinical Pharmacy Services, [facility] [address] [place] [address] [place] [address] [facility], [address] [place] [address] 11/20/2023 2:00 PM EDT Office Visit Nephrology [address] [place] [address] ZeMarycarmen alan PA-C [address] [place] [address] 01/19/2024 9:00 AM EST Office Visit Gastroenterology [address] [place] [address] Moon Avila CRNP [address] [place] [address] 02/20/2024 12:30 PM EST Nurse Only Ancillary [address] [place] [address] [place], Nurse [address] [place] [address] 03/08/2024 2:30 PM EST Office Visit Family Medicine [address] [place] [phone] Jocelyne Desai[address] [place] [address] Scheduled Procedures Name Priority Associated Diagnoses Date/Ti [...] Additional history exists CKD HGB USE SMARTSET 88110 08/22/202408/22, 08/23/2023, 08/16/2023, Additional history exists CKD PHOS USE SMARTSET 07689 08/22/202408/13, 07/18/2023, 07/03/2023, Additional history exists DTaP,Tdap,and [...] this encounter Medical Devices Implanted Type Area Chip Mixing Machine Operator Device Identifier Shelf Expiration Date Model / Serial / Lot Shaft Fibula 6cm [id number] - [id number] Implanted:Qty: 1 on 09/05/2008 at [place] [facility] [place] Tissue - Human N/A: Spine Cervical MUSCULOSKELETAL TRANSPLANT FND 04/20/2010 [id number] / [id number] 0P / Stent Eso Gw 22x70 03989-419 - [id number] Implanted:Qty: 1 on 01/21/2008 at OR [facility] [place] N/A: Esophagus [employer]US INC 04/12/2009 25774-256 / / [id number] Depuy Uniplate 32 Implanted:Qty: 1 on 09/05/2008 at OR [facility] [place] N/A: Spine Cervical TAMMY & TAMMY DEPUY 1897--302 / / Depuy Uniplate Screw 14mm Implanted:Qty: 2 on 09/05/2008 at OR [facility] [place] [place] N/A: Spine Cervical TAMMY & TAMMY DEPUY 1897-06-017 / / Depuy Lordotic Bengal Cage Implanted:Qty: 1 on 05/07/2010 at OR [facility] [place] N/A: Neck 1773-06-146 / 1773-06-146 / Plate Zach 3 Level Ti 54mm - [id number] Implanted:Qty: 1 on 05/07/2010 at OR [facility] [place] [place] N/A: Neck JNJ : DEPUY SPINE [id number] 54 / / Screw Zach Const St Ti 14mm - [id number] Implanted:Qty: 4 on 05/07/2010 at OR [facility] [place] N/A: Neck JNJ : DEPUY SPINE [id number] 14 / / Screw 3.5x14 Mntr Fa [id number] - [id number] Implanted:Qty: 8 on 05/07/2010 at OR [facility] [place] N/A: Spine Cervical JNJ : ETHICON CARDIOVATIONS [id number] / / Jarrell 3.2u068lg [id number] - [id number] Implanted:Qty: 1 on 05/07/2010 at OR [facility] [place] [place] N/A: Spine Cervical JNJ : ETHICON CARDIOVATIONS [id number] / / Screw Inner Mntr [id number] - [id number] Implanted:Qty: 8 on 05/07/2010 at [place] [facility] [place] N/A: Spine Cervical JNJ : ETHICON CARDIOVATIONS [id number] / / Envista Intraocular Lens Implanted:Qty: 1 on 03/10/2022 by Liang Marshall MD at OR [facility] Right: Eye BAUSCH & LOMB 08/13/2023 [id number] / [id number] / [id number] Envista Intraocular Lens Implanted:Qty: 1 on 03/24/2022 by Liang Marshall MD at OR [facility] Left: Eye BAUSCH & LOMB 07/13/2024 [id number] / [id number] / [id number] documented as of this encounter Procedures Procedure Name Priority Date/Time Associated Diagnosis Comments OUTSIDE LAB-PT/INR Routine 09/22/2023 documented in this encounter Results * OUTSIDE LAB-PT/INR (09/22/2023) INR-OUTSIDE LAB 4.84 History Per Patient LABORATORY documented in this encounter Visit Diagnoses Diagnosis Chronic atrial fibrillation (HCC)- Primary Atrial fibrillation documented in this encounter Advance Directives Documents on File Type Date Recorded 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 No Care Teams Vehicle Fare Collector Relationship Specialty Start Date End Date Jocelyne Desai DO [address] [place] [address] [place] [address] PCP - General Internal Medicine 11/09/16 documented as of this encounter
--- OUTSIDE RECORDS SUMMARY | 2023-10-21 16:35 | External Medical Summary | Summary of Care ---
Author Name Unknown Organization [facility] Address [address] [facility] [place] [address] Phone [phone] Care Team Providers Care Agency Appointments Supervisor Name Role Phone Jocelyne Desai Primary Care Provider [phone] Reason for Visit * Auth/Cert Specialty Diagnoses / Procedures Referred By Contac t Referred To Contact Diagnoses Anorexia Weight loss Anorexia [R63.0] Weight loss [R63.4] Procedures EGD, FLEXIBLE, DIAGNOSTIC ESOPHAGOGASTRODUODENOSCOPY (EGD), FLEXIBLE, TRANSORAL, DIAGNOSTIC Rustam Roach MD [address] [place] [address] Endo [facility] [address] [place] [phone] Referral ID Status Reason Start Date Expiration Date Visits Re quested Visits Authorized [id number] Encounter Details Date Type Department Care Team (Latest Contact Info) Description 09/14/2023 11:24 AM EDT - 09/14/2023 1:15 PM EDT Hospital Encounter [facility], Operating Room, Main Hospital - 4th Floor [address] [place] [phone] Amarilys Jaquez MD [address] [facility] [place] [address] Upper GI Endoscopy Discharge Disposition: Home - Self Care Allergies No known active allergiesdocumented as of this encounter (statuses as of 09/15/2023) Medications Medication Sig Dispensed Refills Start Date [...] in the morning. 30 Capsule 4 Active oxyCODONE HCl 5 MG Oral Tablet (Oxy IR) Take 1 Tablet by mouth every 6 hours as needed for Pain, Moderate or Pain, Severe. 30 Tablet 4 Active Sennosides-Docu sate Sodium 8.6-50 MG Oral Tablet (Senna S) Take 1 Tablet by mouth in the morning. 30 Tablet 4 Active Midodrine HCl 2.5 MG Oral [...] morning 1 tablet before bed. 4 Active Enoxaparin Sodium 100 MG/ML Injection Solution Prefilled Syringe (Lovenox)Indica tions:History of pulmonary embolism Inject 0.9ml (90mg) under the skin every 24 hours according to anticoagulation clinic 5 mL 4 Active Potassium Chloride Candi ER 20 MEQ Oral Tablet Extended Release Take 2 Tablets by mouth in the morning and 2 Tablets before bedtime. 4 09/06/19 24 Discontinued documented as of this encounter (statuses as of 09/15/2023) Active Problems Patient Care Coordination No te Formatting of this note migh t be different from the original. Good connectivity [facility] [address] for wound care [phone] Televideo if needed. Problem Noted Date Diagnosed [...] up with podiatry,. Letter in chart from [facility] podiatry they were unable [...] ICD-10 update of inactive term PLATT RESEARCH OTHER*[id number] 02/20/2007 ADVANCE DIRECTIVE INFORMATION 01/19/2005 Overview: Yes, Patient instructed to provide copy of advance directive for provider to review and to be scanned into Electronic Medical Record No, Advance Directive brochure given to patient at prior appointment. SPINAL STENOSIS-LUMBAR 09/23/2002 Vitamin D deficiency Cervical spinal stenosis documented as of this encounter (statuses as of 09/15/2023) Resolved Problems Problem Noted Date Diagnosed Date Resolved Date Depression, unspecified 11/09/2021/ Depression, unspecified 11/09/202105/2022 Cellulitis of right leg 07/13/202105/2022 Last Assessment & Plan: Suspect this could be early/localized. Will treat with 7 days antibiotic. If pt cannot be reassess by Dr. Braxton office early next week will need [facility] provider recheck Multiple and open [...] 11/17/19 23 LUMBAGO 12/24/2002 05/09/2007 LOC PRIM [id number] 12/24/200208/13 DEGENERATIVE SKIN DISORD 12/24/2002 VERTEBRAL FX [...] as of this encounter (statuses as of 09/15/2023) Immunizations Name Administration Dates Next Due COVID-19 mRNA, LNP-s, No Pre serve, 2-Dose Series (Moderna) 03/19/2020 COVID-19 mRNA, LNP-s, No Pre serve, 2-Dose Series (Pfizer) 02/16/2021,04/09/2020,03/19/2020 COVID-19, MRNA-LNP, 23-24, P F, 30 MCG/0.3 mL, 12 YRS AND ABOVE, IM (Specific Media-ComirnatGazzang) 11/16/2022 Covid-19, Mrna, Lnp-s, Pf, B ivalent, [...] Sign Reading Time Taken Comments Blood Pressure 110/65 09/14/2023 1:03 PM EDT Pulse 70 09/14/2023 1:03 PM EDT Temperature 36 C (96.8 F) 09/14/2023 1:03 PM EDT Respiratory Rate 6 09/14/2023 1:03 PM EDT Oxygen Saturation 100% 09/14/2023 1:03 PM EDT Inhaled Oxygen Concentration - - Weight 85.3 kg (188 lb) 09/14/2023 11:47 AM EDT Height 180.3 cm (5' 10.98") 09/14/2023 11:47 AM EDT Body Mass Index 26.23 09/14/2023 11:47 AM EDT documented in this encounter Progress Notes * Amarilys Jaquez MD - 09/14/2023 12:52 PM EDT BRIEF DISCHARGE SUMMARY [facility] [address] Name: Lg Cooley Location: OR [facility]/OR Date: 09/14/2023 Time: 12:52 PM Seen in recovery Results discussed with him and his daughter Recent CT abdomen results also reviewed with him and his daughter Resume diet/meds later today Coumadin as per the coumadin clinic documented in this encounter H&P Notes * Amarilys Jaquez MD - 09/14/2023 11:58 AM EDT Endoscopy Pre-Procedure Assessment Name: Lg Cooley Date: 09/14/2023 Time: 11:58 AM Procedure(s): Upper GI Endoscopy; with Indication(s) of anorexia and weight loss Endoscopy Pre-Procedure Assessment: Prior to the procedure, the patient is identified. The patient's history, medications and allergieshave been reviewed. The patient is competent. The risks and benefits of the proposed procedure and the planned sedation have been discussed with the patient. All questions have been answered and informed consent for the procedure has been obtained. Prior to Admission medications Medication Sig Last Dose Discont. Enoxaparin Sodium 100 MG/ML Injection Solution Prefilled Syringe (iSpot.tv) Inject 0.9ml (90mg) under the skin every 24 hours according to anticoagulation clinic 09/13/2023 Potassium Chloride Candi ER 20 MEQ Oral Tablet Extended Release Take 2 Tablets by mouth in the morning and 2 Tablets before bedtime. 09/06/23 Take 2 tablets in the morning 1 tablet before bed. 09/13/2023 Torsemide 20 MG Oral Tablet (Demadex) Take 1 Tablet by mouth in the morning and 1 Tablet before bedtime. 09/13/2023 Aspirin 81 MG Oral Tablet Chewable Take 1 Tablet by mouth in the morning. with food.. 09/13/2023 Atorvastatin Calcium 40 MG Oral Tablet (Lipitor) Take 1 Tablet by mouth daily. 09/09/2023 Cyclobenzaprine HCl 10 MG Oral Tablet (Flexeril) Take 1 Tablet by mouth every 8 hours as needed forMuscle spasms. Past Week Metoprolol Succinate ER 25 MG Oral Tablet Extended Release 24 Hour (toPROL XL) Take 1 Tablet by mouth in the morning. 09/13/2023 Midodrine HCl 2.5 MG Oral Tablet (Proamatine) Take 1 Tablet by mouth in the morning and 1 Tablet atnoon and 1 Tablet in the evening. 09/13/2023 Tamsulosin HCl 0.4 MG Oral Capsule (Flomax) Take 1 Capsule by mouth in the morning. 09/13/2023 Warfarin Sodium 3 MG Oral Tablet Take 1 Tablet by mouth every evening. As per anti-coagulation clinic. Flintstones w/Iron 18 MG Oral Tablet Chewable Take 1 Tablet by mouth every evening. 09/13/2023 Magnesium Oxide 400 MG Oral Capsule Take 1 Capsule by mouth in the morning. 09/13/2023 oxyCODONE HCl 5 MG Oral Tablet (Oxy IR) Take 1 Tablet by mouth every 6 hours as needed for Pain, Moderate or Pain, Severe. Past Month Sennosides-Docusate Sodium 8.6-50 MG Oral Tablet (Senna S) Take 1 Tablet by mouth in the morning. Past Week Vitamin B-12 1000 MCG Oral Tablet (Cyanocobalamin) Take 1 Tablet by mouth every evening. 09/13/2023 ACETAMINOPHEN 500 MG PO TABS 2 tabs every 6 hours as needed for discomfort Past Month Review of patient's allergies indicates: No Known Allergies BP 110/68 | Pulse 62 | Temp 36.3 C (97.3 F) (Temporal Artery) | Resp 18 | Ht 1.803 m (5' 10.98") | Wt 85.3 kg (188 lb) | SpO2 100% | BMI 26.23 kg/m | BSA 2.07 m Physical Exam: Mental Status Examination: alert and oriented. Pale appearing Resp normal CV pacer Wound vac on legs ASA Grade: III - A patient with severe systemic disease. Abdomen: soft This patient has undergone a preprocedural evaluation. A determination has been made to proceed with the planned procedure under [facility] procedural guidelines and the [facility] Non-Emergent, Elective Medical Services and Treatment Recommendations (published on 05-21-19). The community and hospital prevalence of COVID-19 has been discussed as well as this patient's specific risks associated with SARS-CoV-19 infection. Based upon the clinical acuity and patient-specific care considerations, this procedure is deemed a Tier III - Procedures at little or no risk for clinical deterioration (example - cosmetic). After reviewing the risks and benefits, the patient is deemed in satisfactory condition to undergo the procedure. The anesthesia plan is to use general anesthesia. Amarilys Jaquez MD 09/14/2023 documented in this encounter Procedure Notes * Jocelyne Desai DO - 09/14/2023 11:35 AM EDTAssociated Order(s): UPPER GI ENDOSCOPY [facility] Patient Name: Lg Cooley Procedure Date: 09/14/2023 11:35 AM Date of : 1950 Admit Type: Outpatient Note Status: Finalized Date of : 1950 Admit Type: Outpatient Age: 73 Room: OR 2 Gender: Male Note Status: Finalized Procedure: Upper GI endoscopy Indications: Weight loss Providers: Amarilys Jaquez MD Referring MD: Jocelyne Desai DO Medicines: See the Anesthesia note for documentation of the administered medications Complications: No immediate complications. Procedure: Pre-Anesthesia Assessment: - Patient identification and proposed procedure were verified prior to the procedure by the physician, the nurse and the anesthesiologist. The procedure was verified in the pre-procedure area. - Prior to the procedure, a History and Physical was performed, and patient medications, allergies and sensitivities were reviewed. The patient's tolerance of previous anesthesia was reviewed. - The risks and benefits of the procedure and the sedation options and risks were discussed with the patient. All questions were answered and informed consent was obtained. - The medication list for this patient has been reviewed prior to the procedure and has been determined that the patient may proceed with the planned study. Any medication changes made as a result of the findings of this procedure have been discussed with the patient and/or service liaison representative at the time of discharge from the department. After obtaining informed consent, the endoscope was passed under direct vision. All instruments were visually inspected immediately before and after removal from the patient to ensure they are fully intact. Throughout the procedure, the patient's blood pressure, pulse, and oxygen saturations were monitored continuously. The was introduced through the mouth, and advanced to the jejunum. The upper GI endoscopy was accomplished without difficulty. The patient tolerated the procedure well. Findings & Specimens: The examined esophagus appeared normal - a small residual staple was seen around normal tissue in the distal esophagus. The Z-line appeared regular. Evidence of a gastric bypass was found. A gastric pouch with a normal size was found. The gastrojejunal anastomosis was characterized by healthy appearing mucosa. The examined jejunum appeared normal. Impression: - Normal esophagus. - Z-line regular. - Gastric bypass with a normal-sized pouch. Gastrojejunal anastomosis characterized by healthy appearing mucosa. - Normal examined jejunum. Recommendation: - Return to referring provider. - Discharge to home with an escort when recovered. Amarilys Jaquez MD 09/14/2023 12:26:31 PM This report has been signed electronically. Estimated Blood Loss: Estimated blood loss was minimal. documented in this encounter Nursing Notes * Haydee Sena, RN - 09/14/2023 12:24 PM EDT EGD completed. Pt malu procedure well. Sedated by HANDS ASSEMBLER. See anesthesia record for VS and medicationsgiven. Abd soft. Airway patent. Pt to recovery on L side with HOB elevated. Report to recovery roomnurse. Bedside cleaning done. documented in this encounter Plan of Treatment Upcoming Encounters Date Type Department Care Team (Late st Contact Info) Description 09/25/2023 6:30 AM EDT Anticoagulation [facility], [facility] Miqu[place] [address] [place] [address] [place] [address] [place] [address] 09/27/2023 11:50 AM EDT Office Visit Family Medicine [address] [place] [phone] Jocelyne Desai DO [address] [place] [address] [place] [address] 11/20/2023 2:00 PM EDT Office Visit Nephrology [address] [place] [address] ZemaitisMarycarmen PA-C [address] [facility] [place] [address] 01/19/2024 9:00 AM EST Office Visit Gastroenterology [address] [place] [address] Moon Avila CRNP [address] [place] [address] 02/20/2024 12:30 PM EST Nurse Only Ancillary [address] [place] [address] Movadolfoey, Nurse Annual [address] [place] [address] 03/08/2024 2:30 PM EST Office Visit Family Medicine [address] [place] [phone] Jocelyne Desai, [address] [place] [address] Scheduled Procedures Name Priority Associated Diagnoses Date/Ti [...] 08/13, 08/28/2023, Additional history exists Albumin/Creatinine Ratio 07/17/20242 024, 11/16/2022, 05/13/2022, Additional history exists CKD HGB USE SMARTSET 22782 08/22/202408/22, 08/23/2023, 08/16/2023, Additional history exists CKD PHOS USE SMARTSET 86879 08/22/2024 07, 07/18/2023, 07/03/2023, Additional history exists [...] this encounter Medical Devices Implanted Type Area Marine Engine Machinist Device Identifier Shelf Expiration Date Model / Serial / Lot Shaft Fibula 6cm [id number] - [id number] Implanted:Qty: 1 on 09/05/2008 at [place] [facility] Tissue - Human N/A: Spine Cervical MUSCULOSKELETAL TRANSPLANT FND 04/20/2010 [id number] / [id number] / Stent Eso Gw 22x70 [id number] - [id number] Implanted:Qty: 1 on 01/21/2008 at OR [facility] N/A: Esophagus [employer] 04/12/2009 [id number] / / [id number] Depuy Uniplate 32 Implanted:Qty: 1 on 09/05/2008 at OR [facility] N/A: Spine Cervical TAMMY & TAMMY DEPUY [id number] / / Depuy Uniplate Screw 14mm Implanted:Qty: 2 on 09/05/2008 at OR [facility] N/A: Spine Cervical TAMMY [employer] TAMMY DEPUY [id number] / / Depuy Lordotic Bengal Cage Implanted:Qty: 1 on 05/07/2010 at OR [facility] N/A: Neck [id number] / [id number] / Plate Zach 3 Level Ti 54mm - [id number] Implanted:Qty: 1 on 05/07/2010 at OR [facility] N/A: Neck JNJ : DEPUY SPINE [id number] / / Screw Zach Const St Ti 14mm - [id number] Implanted:Qty: 4 on 05/07/2010 at OR [facility] N/A: Neck JNJ : DEPUY SPINE [id number] / / Screw 3.5x14 Mntr Fa [id number] - [id number] Implanted:Qty: 8 on 05/07/2010 at OR [facility] N/A: Spine Cervical JNJ : ETH[employer] [id number] / / Jarrell [id number] - [id number] Implanted:Qty: 1 on 05/07/2010 at OR [facility] N/A: Spine Cervical JNJ : ETH[employer] [id number] / / Screw Inner Mntr [id number] - [id number] Implanted:Qty: 8 on 05/07/2010 at OR [facility] N/A: Spine Cervical JNJ : ETH[employer]ON [employer] [id number] / / Envista Intraocular Lens Implanted:Qty: 1 on 03/10/2022 by Liang Marshall MD at OR [facility] Right: Eye BAUSCH [employer] LOMB 08/13/2023 [id number] / [id number] / [id number] Envista Intraocular Lens Implanted:Qty: 1 on 03/24/2022 by Liang Marshall MD at OR [facility] Left: Eye BAUSCH & LOMB 07/13/2024 [id number] / [id number] / [id number] documented as of this encounter Procedures Procedure Name Priority Date/Time Associated Diagnosis Comments GLUCOSE METER, POINT OF CARE KENNY 09/14/2023 12:04 PM EDT UPPER GI ENDOSCOPY 09/14/2023 11 :35 AM EDT documented in this encounter Results * GLUCOSE METER, POINT OF CARE (09/14/2023 12:04 PM EDT) Glucose Meter 74 70 - 120 mg/dL 09/14/2023 12:13 PM EDT [facility] Blood Whole blood specimen / Unknown 09/14/2023 12:04 PM EDT 09/14/2023 12:13 PM EDT Amarilys Jaquez MD LAB POINT OF CARE TE ST DOCKED DEVICE UNSOLICITED RESULTS [facility] [address] [place] [address] * UPPER GI ENDOSCOPY (09/14/2023 11:35 AM EDT) 09/14/2023 11:3 5 AM EDT Narrative Procedure Note Jocelyne Desai DO - 09/14/2023 11:35 AM EDT [facility] Patient Name: Lg Cooley Procedure Date: 09/14/2023 11:35 AM Date of : 1950 Admit Type: Outpatient Note Status:Finalized Date of : 1950 Admit Type: Outpatient Age: 73 Room: OR 2 Gender: Male Note Status: Finalized Procedure: Upper GI endoscopy Indications: Weight loss Providers: Amarilys Jaquez MD Referring MD: Jocelyne Desai DO Medicines: See the Anesthesia note for documentation of theadministered medications Complications: No immediate complications. Procedure: Pre-Anesthesia Assessment: - Patient identification and proposed procedurewere verified prior to the procedure by the physician, the nurse and theanesthesiologist. The procedure was verified in the pre-procedure area. - Prior to the procedure, a History and Physicalwas performed, and patient medications, allergies and sensitivities werereviewed. The patient's tolerance of previous anesthesia was reviewed. - The risks and benefits of the procedure and thesedation options and risks were discussed with the patient. All questions wereanswered and informed consent was obtained. - The medication list for this patient has beenreviewed prior to the procedure and has been determined that the patient may proceed with the plannedstudy. Any medication changes made as a result of the findings of this procedure have beendiscussed with the patient and/or service liaison representative at the [facility]. After obtaining informed consent, the endoscope waspassed under direct vision. All instruments were visually inspected immediatelybefore and after removal from the patient to ensure they are fully intact. Throughoutthe procedure, the patient's blood pressure, pulse, and oxygen saturations weremonitored continuously. The was introduced through the mouth, and advanced to thejejunum. The upper GI endoscopy was accomplished without difficulty. The patienttolerated the procedure well. Findings & Specimens: The examined esophagus appeared normal - a small residual staple wasseen around normal tissue in the distal esophagus. The Z-line appeared regular. Evidence of a gastric bypass was found. A gastric pouch with a normalsize was found. The gastrojejunal anastomosis was characterized by healthy appearing mucosa. The examined jejunum appeared normal. Impression: - Normal esophagus. - Z-line regular. - Gastric bypass with a normal-sized pouch.Gastrojejunal anastomosis characterized by healthy appearing mucosa. - Normal examined jejunum. Recommendation: - Return to referring provider. - Discharge to home with an escort whenrecovered. Amarilys Jaquez MD 09/14/2023 12:26:31 PM This report has been signed electronically. Estimated Blood Loss: Estimated blood loss was minimal. Jocelyne Brigitte Desai DO GASTRO UPPER documented in this encounter Administered Medications Inactive Administered Medications - up to 3 most recent administrations Medication Order MAR Action Action Date Dose Rate Site isolyte-S pH 7.4 infusion Intravenous, at 10 mL/hr, Plasma-LYTE 148, isolyte-S, and isolyte-S pH 7.4 are considered equivalent - including for MAR barcode scanning., CONTINUOUS, Starting on Mon09/14/23 at 1230, Until Mon09/14/23 at 1715 Restarted 09/14/2023 12:30 PM EDT Rate Change 09/14/2023 12:22 PM EDT 100 mL/hr Continue from Pre-Op 09/14/2023 12:14 PM EDT 10 mL/hr documented in this encounter Active and Recently Administered Medications Times are shown in EDT. Continuous Medication Order 09/12/2023 09/13/2023 09/14/2023 isolyte-S pH 7.4 infusion Intravenous, at 10 mL/hr, Plasma-LYTE 148, isolyte-S, and isolyte-S pH 7.4 are considered equivalent - including for MAR barcode scanning., CONTINUOUS, Starting on Mariel 09/14/23 at 1230, Until Mariel 09/14/23 at 1715 1202 (New Bag - Prov ider: Estefania Lamb RN)1214 (Continue from Pre-Op - Provider: Lyssa Fields CRNA)1222 (Rate Change - Provider: Lyssa Fields CRNA)1229 (Paused - Provider: Lyssa Fields CRNA - Comment: Switch to gravity)1230 (Restarted - Provider: Lyssa Fields CRNA) documented in this encounter Advance Directives Documents on File Type Date Recorded Patient Education Paraprofessional Expl anation POLST 01/26/2021 [place] [facility] FOR LIFE-SUSTAINING TREATMENT * [...] Power of Attor andrew? No Care Teams Agency Appointments Supervisor Relationship Specialty Start Date End Date Jocelyne Desai DO [address] [place] [address] [place] [address] PCP - General Internal Medicine 11/09/16 documented as of this encounter
--- OUTSIDE RECORDS SUMMARY | 2023-10-21 16:35 | External Medical Summary | Summary of Care ---
Author Name Unknown Organization [facility] Address [address] [facility] [place] [address] Phone [phone] Care Team Providers Care Lumber Racker Name Role Phone Jocelyne Desai DO Primary Care Provider Encounter Details Date Type Department Care Team (Late st Contact Info) Description 08/31/2023 Telephone Family Medicine [address] [place] [phone] Jocelyne Desai DO [address] [place] [address] [place] [phone] Allergies No known active allergiesdocumented as of this encounter (statuses as of 09/18/2023) Medications Medication Sig Dispensed Refills Start Date [...] or Pain, Severe. 30 Tablet 07/05/2023 Active Sennosides-Docusat e Sodium [...] and 1 Tablet before bedtime. 08/25/2023 Active documented as of this encounter (statuses as of 09/18/2023) Active Problems Patient Care Coordination No te Formatting of this note migh t be different from the original. Good connectivity [facility] for wound care [phone] Televideo if needed. Problem Noted Date Diagnosed [...] up with podiatry,. Letter in chart from [facility] podiatry they were unable to get [...] ICD-10 update of inactive term PLATT RESEARCH OTHER*[id number] 02/20/2007 ADVANCE DIRECTIVE INFORMATION 01/19/2005 Overview: Yes, Patient instructed to provide copy of advance directive for provider to review and to be scanned into Electronic Medical Record No, Advance Directive brochure given to patient at prior appointment. SPINAL STENOSIS-LUMBAR 09/23/2002 Vitamin D deficiency Cervical spinal stenosis documented as of this encounter (statuses as of 09/18/2023) Resolved Problems Problem Noted Date Diagnosed Date [...] 11/17/19 23 LUMBAGO 12/24/2002 05/09/2007 LOC PRIM [id number] 12/24/200208/13 DEGENERATIVE SKIN DISORD 12/24/2002 VERTEBRAL FX [...] as of this encounter (statuses as of 09/18/2023) Immunizations Name Administration Dates Next Due COVID-19 [...] Anticoagulation Centralized Clinical Pharmacy Services, Ilya Lafleur [address] [place] [address] [place] [address] [place] [address] 09/27/2023 11:50 AM EDT Office Visit Family Medicine [address] [place] [phone] Jocelyne Desai[address] [place] [address] 11/20/2023 2:00 PM EDT Office Visit Nephrology [address] [place] [address] Marycarmen Kowalski PA-C [address] [place] [address] 01/19/2024 9:00 AM EST Office Visit Gastroenterology [address] [place] [address] Moon Avila, EARLY BREASTFEEDING CARE SPECIALIST [address] [place] [address] 02/20/2024 12:30 PM EST Nurse Only Ancillary [address] [place] [address] [place], Nurse Annual [address] [place] [address] 03/08/2024 2:30 PM EST Office Visit Family Medicine [address] [place] [phone] Jocelyne Desai, [address] [place] [address] Scheduled Procedures Name Priority Associated Diagnoses Date/Ti [...] Additional history exists CKD HGB USE SMARTSET 83256 08/22/202408/22, 08/23/2023, 08/16/2023, Additional history exists CKD PHOS USE SMARTSET 35606 08/22/202408/13, 07/18/2023, 07/03/2023, Additional history exists DTaP,Tdap,and [...] encounter Medical Devices Implanted Type Area Sap Specialist Device Identifier Shelf Expiration Date Model / Serial / Lot Shaft Fibula 6cm [id number] - [id number] Implanted:Qty: 1 on 09/05/2008 at OR [facility] Tissue - Human N/A: Spine Cervical MUSCULOSKELETAL TRANSPLANT FND 04/20/2010 [id number] / [id number] 0P / Stent Eso Gw 22x70 [id number] - [id number] Implanted:Qty: 1 on 01/21/2008 at OR [facility] N/A: Esophagus ALVE[employer]US INC 04/12/2009 47740-768 / / [id number] Depuy Uniplate 32 Implanted:Qty: 1 on 09/05/2008 [...] Plate Zach 3 Level Ti 54mm - [id number] Implanted:Qty: 1 on 05/07/2010 at OR [facility] N/A: Neck JNJ : DEPUY SPINE [id number] / / Screw Zach Const St Ti 14mm - [id number] Implanted:Qty: 4 on 05/07/2010 at OR [facility] N/A: Neck JNJ : DEPUY SPINE [id number] 14 / / Screw 3.5x14 Mntr Fa [id number] - [id number] Implanted:Qty: 8 on 05/07/2010 at OR [facility] N/A: Spine Cervical JNJ : ETHICON CARDIOVATIONS [id number] / / Jarrell [id number] - [id number] Implanted:Qty: 1 on 05/07/2010 at OR [facility] N/A: Spine Cervical JNJ : ETHICON CARDIOVATIONS [id number] / / Screw Inner Mntr [id number] - [id number] Implanted:Qty: 8 on 05/07/2010 at OR [facility] N/A: Spine Cervical JNJ : ETHICON CARDIOVATIONS [id number] / / Envista Intraocular Lens Implanted:Qty: 1 on 03/10/2022 by Liang Marshall MD at OR [facility] Right: Eye BAUSCH & LOMB 08/13/2023 [id number] / [id number] / [id number] Envista Intraocular Lens Implanted:Qty: 1 on 03/24/2022 by Liang Marshall MD at OR [facility] Left: Eye BAUSCH & LOMB 07/13/2024 [id number] / [id number] / [id number] documented as of this encounter Advance Directives Documents on File Type Date Recorded Patient Boiler Coverer Expl anation POLST 01/26/2021 [place] OR [facility] FOR LIFE-SUSTAINING [...] Power of Attor andrew? No Care Teams Lumber Racker Relationship Specialty Start Date End Date Jocelyne Desai DO [address] [place] [address] [place] [address] PCP - General Internal Medicine 11/09/16 documented as of this encounter
--- OUTSIDE RECORDS SUMMARY | 2023-10-21 16:35 | External Medical Summary ---
Author Name Unknown Address Unknown Organization : Laboratory Report Ordering Provider Test Date Status NOREEN TORRES 09/14/2023 12:04:39 Final Observation Date Value Abnormality Reference (Units ) Status Glucose Point of Care 09/14/2023 12:04:39 74 70-120 (mg/dL) Final Performing Location
--- OUTSIDE RECORDS SUMMARY | 2023-10-21 16:36 | External Medical Summary | Summary of Care ---
Author Name Unknown Organization [facility] Address [address] [facility] [place] [address] Phone [phone] Care Team Providers Care Dryer Feeder Name Role Phone Jocelyne Desai DO Primary Care Provider Reason for Visit * Reason Onset Date Comments Home Health 09/08/2023 Encounter Details Date Type Department Care Team (Late st Contact Info) Description 09/08/2023 Telephone Family Medicine [address] [phone] Jocelyne Desai DO [address] [place] [address] [place] [address] Home Health Allergies No [...] [facility] for wound care [phone] Televideo if needed. Problem Noted Date Diagnosed [...] ICD-10 update of inactive term PLATT RESEARCH OTHER*[id number] 02/20/2007 ADVANCE DIRECTIVE INFORMATION 01/19/2005 Overview: Yes, [...] [facility] office early next week will need [facility] provider recheck Multiple and open [...] 11/17/19 23 LUMBAGO 12/24/2002 05/09/2007 LOC PRIM [id number] 12/24/200208/13 DEGENERATIVE SKIN DISORD 12/24/2002 VERTEBRAL FX [...] No 02/16/2023 Does the household have a [facility] source of income? (Household - [...] encounter Miscellaneous Notes * Telephone Encounter - Pancho Tristan MD - 09/11/2023 8:34 AM EDT Hold aspirin 5 days * Telephone Encounter - Sofie Danielle [facility] - 09/08/2023 1:36 PM EDT Per MD 'standard anticoagulant hold' recommended. Typically, ACC only advises on warfarin & enoxaparin. Please provide clarification regarding duration of hold of aspirin for procedure. Thanks, Sofie Danielle PharmD Clinical Pharmacist [facility] ([facility]) [phone] 09/08/2023 1:37 PM * Telephone Encounter - Sofie Danielle RP - 09/08/2023 1:32 PM EDT ACC advised patient on warfarin & lovenox instructions today for upcoming procedure 09/14/23 (seeletters for detailed instructions). Will route to gastroenterology team & provider to provide recommendations regarding aspirin. Thanks, Sofie Danielle PharmD Clinical Pharmacist [facility] ([facility]) [phone] 09/08/2023 1:33 PM * Telephone Encounter - Sun Valle LPN - 09/08/2023 1:16 PM EDT Concerns Shanel PUENTE slitting and shipping supervisor Calling from: Josse Pope Report/Concerns of: Medication Related Symptoms: none Narrative: Shanel, slitting and shipping supervisor calling from [facility]. Patient is on coumadin and Lovenox right now for bridge before procedure. Lovenox has a possible major interaction with Aspirin. Does the doctor want to continue aspirin? Call back Shanel with any advice or orders at [phone] Please fax new orders to [phone] documented in this encounter Plan of Treatment Upcoming Encounters Date Type Department Care Team (Latest Contact Info) Description 12:57 PM EDT Hospital Encounter OR [facility], Operating Room, [facility] - 4th Floor [address] [place] [address] Amarilys Jaquez MD [address] [place] [address] [place] [address] 4 12:57 PM EDT - 4 1:33 PM EDT Surgery OR GL, Operating Room, [facility] - 4th Floor [address] [place] [address] Amarilys Jaquez MD [address] [facility] [place] [address] ESOPHAGOGASTRODUODENOSCOPY (EGD), FLEXIBLE, TRANSORAL, DIAGNOSTIC 4 6:30 AM EDT Anticoagulation Centralized Clinical Pharmacy Services, Ilya Lafleur [address] [place] [address] [place] [address] [facility], [address] [place] [address] 4 11:50 AM EDT Office Visit Family Medicine [address] [place] [phone] [place] [address] 4 2:00 PM EDT Office Visit Nephrology [address] [place] [address] ZemaMarycarmen lindsey PA-C [address] [place] [address] 4 9:00 AM EST Office Visit Gastroenterolo gy [address] [place] [address] Moon Avila CRNP [address] [place] [address] 5 12:30 PM EST Nurse Only Ancillary [address] [place] [address] [place], Nurse [address] [facility] [place] [address] 2:30 PM EST Office Visit Family Medicine [address] [place] [phone] Jocelyne Desai, [address] [place] [address] Scheduled Procedures Name Priority Associated Diagnoses Date/Ti [...] Additional history exists CKD HGB USE SMARTSET 12530 08/22/202408/22, 08/23/2023, 08/16/2023, Additional history exists CKD PHOS USE SMARTSET 12191 08/22/2024 07, 07/18/2023, 07/03/2023, Additional history exists [...] this encounter Medical Devices Implanted Type Area Android Ui Developer Device Identifier Shelf Expiration Date Model / Serial / Lot Shaft Fibula 6cm [id number] - [id number] Implanted:Qty: 1 on 09/05/2008 at [place] [facility] Tissue - Human N/A: Spine Cervical MUSCULOSKELETAL TRANSPLANT FND 04/20/2010 [id number] / [id number] 0P / Stent Eso Gw 22x70 [id number] - [id number] Implanted:Qty: 1 on 01/21/2008 at OR [facility] N/A: Esophagus ALVEOLUS INC 04/12/2009 99756-582 / / [id number] Depuy Uniplate 32 Implanted:Qty: 1 on 09/05/2008 [...] Plate Zach 3 Level Ti 54mm - [id number] Implanted:Qty: 1 on 05/07/2010 at [place] [facility] N/A: Neck JNJ : DEPUY SPINE [id number] 54 / / Screw Zach Const St Ti 14mm - [id number] Implanted:Qty: 4 on 05/07/2010 at OR [facility] N/A: Neck JNJ : DEPUY SPINE [id number] 14 / / Screw 3.5x14 Mntr Fa [id number] - [id number] Implanted:Qty: 8 on 05/07/2010 at [place] [facility] N/A: Spine Cervical JNJ : ETHICON CARDIOVATIONS [id number] / / Jarrell [id number] - [id number] Implanted:Qty: 1 on 05/07/2010 at [place] [facility] N/A: Spine Cervical JNJ : ETHICON CARDIOVATIONS [id number] / / Screw Inner Mntr [id number] - [id number] Implanted:Qty: 8 on 05/07/2010 at [place] [facility] N/A: Spine Cervical JNJ : ETHICON CARDIOVATIONS [id number] / / Envista Intraocular Lens Implanted:Qty: 1 on 03/10/2022 by Liang Marshall MD at OR [facility] Right: Eye BAUSCH & LOMB 08/13/2023 [id number] / [id number] / [id number] Envista Intraocular Lens Implanted:Qty: 1 on 03/24/2022 by Liang Marshall MD at OR [facility] Left: Eye BAUSCH & LOMB 07/13/2024 [id number] / [id number] / [id number] documented as of this encounter Advance Directives Documents on File Type Date Recorded 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 No Care Teams Dryer Feeder Relationship Specialty Start Date End Date Jocelyne Desai DO [address] [place] [address] [place] [address] PCP - General Internal Medicine 11/09/16 documented as of this encounter
--- OUTSIDE RECORDS SUMMARY | 2023-10-21 16:36 | External Medical Summary | Summary of Care ---
Author Name Unknown Organization [facility] Address [address] [place] [address] Phone [phone] Care Team Providers Care Diesel Mechanic Construction Name Role Phone Jocelyne Desai Primary Care Provider [phone] Reason for Visit * Reason Onset Date Comments STAIR Lung Nodule 09/07/2023 Encounter Details Date Type Department Care Team (Late st Contact Info) Description 09/07/2023 Telephone STAIR LUNG NODULE [address] [place] [address] Program, Stair [address] [place] [address] STAIR Lung Nodule Allergies No known active allergiesdocumented as of this encounter (statuses as of 09/07/2023) Medications Medication Sig Dispensed Refills Start Date [...] and 1 Tablet before bedtime. 08/25/2023 Active Enoxaparin Sodium 100 MG/ML Injection Solution Prefilled Syringe (Lovenox)Indicat ions:History of pulmonary embolism Inject 90 mg under the skin every 24 hours according to anticoagulation clinic 5 mL 09/06/2023 Active Potassium Chloride Candi ER 20 MEQ Oral Tablet Extended Release Take 2 Tablets by mouth in the morning and 2 Tablets before bedtime. 09/06/23 Take 2 tablets in the morning 1 tablet before bed. 09/06/2023 Active documented as of this encounter (statuses as of 09/07/2023) Active Problems Patient Care Coordination No te Formatting of this note migh t be different from the original. Good connectivity [facility] for wound care [phone] Televideo if needed. 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 He has significant history DM and PVD and recommended he still follow up with podiatry,. Letter in chart from [facility] podiatry they were unable to [...] 11/27/2018 H/O gastric bypass 11/27/2018 Overview: RYGB [employer] current use of 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 1 [...] ICD-10 update of inactive term PLATT RESEARCH OTHER*[id number] 02/20/2007 ADVANCE DIRECTIVE INFORMATION 01/19/2005 Overview: Yes, Patient instructed to provide copy of advance directive for provider to review and to be scanned into Electronic Medical Record No, Advance Directive brochure given to patient at prior appointment. SPINAL STENOSIS-LUMBAR 09/23/2002 Vitamin D deficiency Cervical spinal stenosis documented as of this encounter (statuses as of 09/07/2023) Resolved Problems Problem Noted Date Diagnosed Date Resolved Date Depression, unspecified 11/09/2021 03/2 Depression, unspecified 11/09/202105/2022 Cellulitis of right leg 07/13/202105/2022 Last Assessment & Plan: Suspect this could be early/localized. Will treat with 7 days antibiotic. If pt cannot be reassess by Dr. Braxton office early next week will need [facility] provider recheck Multiple and open wound [...] 11/17/19 23 LUMBAGO 12/24/2002 05/09/2007 LOC PRIM [id number] 12/24/200208/13 DEGENERATIVE SKIN DISORD 12/24/2002 VERTEBRAL FX [...] as of this encounter (statuses as of 09/07/2023) Immunizations Name Administration Dates Next Due COVID-19 [...] No 02/16/2023 Does the household have a [facility] source of income? (Household - for [...] encounter Miscellaneous Notes * Telephone Encounter - Alisa Alicea LPN - 09/07/2023 8:57 AM EDT Patient managed in STAIR Program for Pulmonary Nodule - added documented in this encounter Plan of Treatment Upcoming Encounters Date Type Department Care Team (Latest Contact Info) Description 6:15 AM EDT Anticoagulation Centralized Clinical Pharmacy Services, Ilya Lafleur [address] [place] [address] [place] [address] [place], [address] [place] [address] 4 6:30 AM EDT Anticoagulation Centralized Clinical Pharmacy Services, [address] [place] [address] [place] [address] 4 1:38 PM EDT Hospital Encounter OR [facility], Operating Room, [facility] - 4th Floor [address] [place] [address] Amarilys Jaquez MD [facility] [place] [id number] 4 1:38 PM EDT - 4 2:14 PM EDT Surgery OR [facility], Operating Room, [facility] - 4th Floor [address] [place] [address] Amarilys Jaquez MD [address] [place] [id number] ESOPHAGOGASTRODUODENOSCOPY (EGD), FLEXIBLE, TRANSORAL, DIAGNOSTIC 4 11:50 AM EDT Office Visit Family Medicine [address] [place] [phone] [address] [place] [address] 4 2:00 PM EDT Office Visit Nephrology [address] [place] [address] ZeMarycarmen alan PA-C [address] [place] [address] 4 9:00 AM EST Office Visit Gastroenterolo gy [address] [place] [address] Moon Avila, OLEG [address] [place] [address] 5 12:30 PM EST Nurse Only Ancillary [address] [place] [address] [place], Nurse Annual [address] [place] [address] 5 2:30 PM EST Office Visit Family Medicine [address] [place] [phone] Jocelyne Desai, [address] [place] [address] Scheduled Procedures Name Priority Associated Diagnoses Date/Ti me ESOPHAGOGASTRODUODENOSCOPY ( EGD), FLEXIBLE, TRANSORAL, DIAGNOSTIC Anorexia Weight loss 09/14/2023 1:38 PM EDT COLONOSCOPY FLEXIBLE PROXIMA L DIAGNOSTIC [...] Additional history exists CKD HGB USE SMARTSET 58634 08/22/202408/22, 08/23/2023, 08/16/2023, Additional history exists CKD PHOS USE SMARTSET 43495 08/22/2024 07, 07/18/2023, 07/03/2023, Additional history exists [...] this encounter Medical Devices Implanted Type Area Director Medical Writing Device Identifier Shelf Expiration Date Model / Serial / Lot Shaft Fibula 6cm [id number] - [id number] Implanted:Qty: 1 on 09/05/2008 [place] [facility] [place] - Human N/A: Spine Cervical MUSCULOSKELETAL TRANSPLANT FND 04/20/2010 [id number] / [id number] / Stent Eso Gw 22x70 [id number] - [id number] Implanted:Qty: 1 on 01/21/2008 at [place] [facility] N/A: Esophagus ALVEOLUS INC 04/12/2009 33431-612 / / [id number] Depuy Uniplate 32 Implanted:Qty: 1 on 09/05/2008 at [place] [facility] N/A: Spine Cervical TAMMY & TAMMY DEPUY 1896-03-302 / / Depuy Uniplate Screw 14mm Implanted:Qty: 2 on 09/05/2008 at [place] [facility] N/A: Spine Cervical TAMMY & TAMMY DEPUY 1896-07-017 / / Depuy Lordotic Bengal Cage Implanted:Qty: 1 on 05/07/2010 at [place] [facility] N/A: Neck 1773-06-146 / [id number] / Plate Zach 3 Level Ti 54mm - [id number] Implanted:Qty: 1 on 05/07/2010 at [place] [facility] N/A: Neck JNJ : DEPUY SPINE [id number] 54 / / Screw Zach Const St Ti 14mm - [id number] Implanted:Qty: 4 on 05/07/2010 at [place] [facility] N/A: Neck JNJ : DEPUY SPINE [id number] 14 / / Screw 3.5x14 Mntr Fa [id number] - [id number] Implanted:Qty: 8 on 05/07/2010 at [place] [facility] N/A: Spine Cervical JNJ : ETHICON CARDIOVATIONS [id number] / / Jarrell [id number] - [id number] Implanted:Qty: 1 on 05/07/2010 at [place] [facility] N/A: Spine Cervical JNJ : ETHICON CARDIOVATIONS [id number] / / Screw Inner Mntr [id number] - [id number] Implanted:Qty: 8 on 05/07/2010 at [place] [facility] N/A: Spine Cervical JNJ : ETHICON CARDIOVATIONS [id number] / / Envista Intraocular Lens Implanted:Qty: 1 on 03/10/2022 by Liang Marshall MD at [place] [facility] Right: Eye BAUSCH & LOMB 08/13/2023 [id number] / [id number] / [id number] Envista Intraocular Lens Implanted:Qty: 1 on 03/24/2022 by Liang Marshall MD at OR [facility] Left: Eye BAUSCH & LOMB 07/13/2024 [id number] / [id number] / [id number] documented as of this encounter Advance Directives Documents on File Type Date Recorded Patient Stage Rigger Expl anation POLST 01/26/2021 [place] OR [facility] LIFE-SUSTAINING TREATMENT * No Code (Latest [...] Power of Attor andrew? No Care Teams Diesel Mechanic Construction Relationship Specialty Start Date End Date Jocelyne Desai DO [address] [place] [address] [place] [address] PCP - General Internal Medicine 11/09/16 documented as of this encounter
--- OUTSIDE RECORDS SUMMARY | 2023-10-21 16:36 | External Medical Summary | Summary of Care ---
Author Name Unknown Organization [facility] Address [address] [place] [address] Phone [phone] Care Team Providers Care Remelt Furnace Expediter Name Role Phone Silvia Armas DO Primary Care Provider + [phone] Reason for Referral * Evaluate & Treat - Unlimited Visits (Within 10 days (routine)) - Authorized Specialty Diagnoses / Procedures Referred By Mingo de paz Referred To Contact Pulmonary Diseases / Pulmonary Diagnoses Lung nodule Silvia Armas DO [address] [place] [address] [place] [address] Referral ID Status Reason Start Date Expiration Date Visits Requested Visits Authorized [id number] Authorized Specialty Services Required 09/04/2023 999 999 Question Answer Referral Priority Within 10 Days (Routine) Primary Reason for Referral? Lung Nodule/Mass Reason for Visit * Reason Onset Date Comments Test Results 09/01/2023 Unexpected or In determinate Result Encounter Details Date Type Department Care Team (Late st Contact Info) Description 09/01/2023 Telephone Laboratory, [place] [address] [place] [address] Silvia Armas DO [address] [place] [address] [place] [address] Test Results (Unexpected or Indeterminate ... Allergies No known active allergiesdocumented as of [...] every evening. As per anti-coagulatio n clinic. 100 Tablet 3 07/25/2023 Active Aspirin [...] the morning and 2 Tablets before bedtime. 08/30/2023 4 Discontinued documented as of this encounter (statuses as of 09/07/2023) Active Problems Patient Care Coordination No te Formatting of this note migh t be different from the original. Good connectivity [facility] for wound care [phone] Televideo if needed. Problem Noted Date Diagnosed [...] up with podiatry,. 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 provider recheck Multiple and open wound [...] 11/17/19 23 LUMBAGO 12/24/2002 05/09/2007 LOC PRIM [id number] 12/24/200208/13 DEGENERATIVE SKIN DISORD 12/24/2002 VERTEBRAL FX [...] MCG/0.3 mL, 12 YRS AND ABOVE, IM ([facility]) 11/16/2022 Covid-19, Mrna, Lnp-s, Pf, B [...] Telephone Encounter - Roslyn Baig CMA - 09/07/2023 12:51 PM EDT Patient is aware. [facility] had already reached out. * Addendum Note - Silvia Armas DO - 09/04/2023 7:48 PM EDTAddended by: SILVIA ARMAS on: 09/04/2023 07:48 PM Modules accepted: Orders * Telephone Encounter - Silvia Armas DO - 09/04/2023 7:46 PM EDT Noted. Please notify pt that his CT chest does not show a clear reason for his weight loss. He does have a small nodule that follow up imaging in 6 months is recommended. I am going to refer him to the lung nodule program to make sure that this gets appropriate follow up. * Telephone Encounter - Nara Bernstein RN - 09/04/2023 1:52 PM EDT Message sent to Silvia Armas DO for order and advice on recommendations. * Telephone Encounter - Franco Boo OSA - 09/01/2023 7:11 PM EDT Hello- The radiologist discovered an unexpected or indeterminate finding on Lg Cooley ([id number]) andasks that you review the following report. Study Type:CT CHEST WO CONTRAST Date of Study: 08/31/2023 IMPRESSION 1. An irregular 6 mm nodule in the left upper lobe. Follow-up CT recommended in 6 months for reassessment. Please respond to this encounter to acknowledge receipt of this message and take responsibility to ensure this report is reviewed. Thank you, MINERVA Ramirez Client Service [facility] documented in this encounter Plan of Treatment Upcoming Encounters Date Type Department Care Team (Latest Contact Info) Description 4 6:15 AM EDT Anticoagulation [facility] Clinical Pharmacy Services, [address] [place] [address] [place] [address] 4 6:30 AM EDT Anticoagulation Centralized Clinical Pharmacy Services, [address] [place] [address] [place] [address] 4 1:38 PM EDT Hospital Encounter OR [facility], Operating Room, [facility] - 4th Floor [address] [place] [address] Amarilys Jaquez MD [facility] [address] 4 1:38 PM EDT - 4 2:14 PM EDT Surgery OR [facility], Operating Room, [facility] - 4th Floor [address] [place] [address] Amarilys Jaquez MD [facility] [place] [address] ESOPHAGOGASTRODUODENOSCOPY (EGD), FLEXIBLE, TRANSORAL, DIAGNOSTIC 4 11:50 AM EDT Office Visit Family Medicine [address] [place] [address] [address] [place] [address] 4 2:00 PM EDT Office Visit Nephrology [address] [place] [address] ZemaMarycarmen lindsey PA-C [address] [place] [address] 4 9:00 AM EST Office Visit Gastroenterolo gy [address] [place] [address] Moon Avila CRNP [address] [place] [address] 5 12:30 PM EST Nurse Only Ancillary [address] [place] [address] [place], Nurse [address] [place] [address] 5 2:30 PM EST Office Visit Family Medicine [address] [place] [address] Silvia Armas, [address] [place] [address] Scheduled Procedures Name Priority Associated Diagnoses Date/Ti me ESOPHAGOGASTRODUODENOSCOPY ( EGD), FLEXIBLE, TRANSORAL, DIAGNOSTIC Anorexia Weight loss 09/14/2023 1:38 PM EDT COLONOSCOPY FLEXIBLE PROXIMA L DIAGNOSTIC Recall Screening for colon cancer Scheduled Referrals Name Type Priority Associated Diagnoses Order Schedule STAIR LUNG NODULE REFERRAL OP (SYSTEM FOR TRACKING ABNORMALITIES OF IMPORTANCE RELIABLY) Referral Within 10 days (routine) Lung nodule Ordered: 09/04/2023 Health Maintenance Due Date Last Done Comments [...] Additional history exists CKD HGB USE SMARTSET 48918 08/22/202408/22, 08/23/2023, 08/16/2023, Additional history exists CKD PHOS USE SMARTSET 87613 08/22/202408/13, 07/18/2023, 07/03/2023, Additional history exists DTaP,Tdap,and [...] this encounter Medical Devices Implanted Type Area Armhole Baster Jumpbasting Device Identifier Shelf Expiration Date Model / Serial / Lot Shaft Fibula 6cm [id number] - [id number] Implanted:Qty: 1 on 09/05/2008 at OR [facility] Tissue - Human N/A: Spine Cervical MUSCULOSKELETAL TRANSPLANT FND 04/20/2010 [id number] / [id number] 0P / Stent Eso Gw 22x70 37840-601 - [id number] Implanted:Qty: 1 on 01/21/2008 at OR [facility] N/A: Esophagus [employer] 04/12/2009 48728-568 / / [id number] Depuy Uniplate 32 Implanted:Qty: 1 on 09/05/2008 at OR [facility] N/A: Spine Cervical TAMMY & TAMMY DEPUY 1897--302 / / Depuy Uniplate Screw 14mm Implanted:Qty: 2 on 09/05/2008 at OR [facility] N/A: Spine Cervical TAMMY & TAMMY DEPUY 1896-07-017 / / Depuy Lordotic Bengal Cage Implanted:Qty: 1 on 05/07/2010 at OR [facility] N/A: Neck 1773-06-146 / 1773-06-146 / Plate Zach 3 Level Ti 54mm - [id number] Implanted:Qty: 1 on 05/07/2010 at OR [facility] N/A: Neck JNJ : DEPUY SPINE [id number] / / Screw Zach Const St Ti 14mm - [id number] Implanted:Qty: 4 on 05/07/2010 at OR [facility] N/A: Neck JNJ : DEPUY SPINE [id number] 14 / / Screw 3.5x14 Mntr Fa [id number] - [id number] Implanted:Qty: 8 on 05/07/2010 at OR [facility] N/A: Spine Cervical JNJ : ETHICON [employer]ATIONS [id number] / / Jarrell 3.0q258am [id number] - [id number] Implanted:Qty: 1 on 05/07/2010 at OR [facility] N/A: Spine Cervical JNJ : ETHICON C[employer]ATIONS [id number] / / Screw Inner Mntr [id number] - [id number] Implanted:Qty: 8 on 05/07/2010 at OR [facility] N/A: Spine Cervical JNJ : ETHICON CARDI[employer]ATIONS [id number] / / Envista Intraocular Lens Implanted:Qty: 1 on 03/10/2022 by Liang Marshall MD at OR [facility] Right: Eye BAUSCH & LOMB 08/13/2023 [id number] / [id number] / [id number] Envista Intraocular Lens Implanted:Qty: 1 on 03/24/2022 by Liang Marshall MD at OR [facility] Left: Eye BAUSCH & LOMB 07/13/2024 [id number] / [id number] / [id number] documented as of this encounter Visit Diagnoses Diagnosis Lung nodule- Primary Solitary pulmonary nodule Anorexia Weight loss Loss of weight documented in this encounter Advance Directives Documents on File Type Date Recorded 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 No Care Teams Remelt Furnace Expediter Relationship Specialty Start Date End Date Silvia Armas DO [address] [place] [address] [place] [phone] PCP - General Internal Medicine 11/09/16 documented as of this encounter
--- OUTSIDE RECORDS SUMMARY | 2023-10-21 16:36 | External Medical Summary | Summary of Care ---
Author Name Unknown Organization [facility] Address [address] [facility] [place] [address] Phone [phone] Care Team Providers Care Board Of Directors Name Role Phone Jocelyne Desai DO Primary Care Provider [phone] Reason for Visit * Reason Onset Date Comments Pre Op Discussion 09/06/2023 Bridge 09/06/2023 Encounter Details Date Type Department Care Team (Late st Contact Info) Description 09/06/2023 Telephone Centralized Clinical Pharmacy Services, Ilya Lafleur [address] [place] [address] [place] [address] Erika Nuno, [facility] [address] [place] [address] Pre Op Discussion; Anna Allergies No known active allergiesdocumented as of this encounter (statuses as of 09/06/2023) Medications Medication Sig Dispensed Refills Start Date [...] and 1 Tablet before bedtime. 4 Active Enoxaparin Sodium 100 MG/ML Injection Solution Prefilled Syringe (Lovenox)Indica tions:History of pulmonary embolism Inject 90 mg under the skin every 24 hours according to anticoagulation clinic 5 mL 4 Active Potassium Chloride Candi ER 20 MEQ Oral Tablet Extended Release Take 2 Tablets by mouth in the morning and 2 Tablets before bedtime. 4 09/06/19 24 Discontinued documented as of this encounter (statuses as of 09/06/2023) Active Problems Patient Care Coordination No te Formatting of this note migh t be different from the original. Good connectivity [facility] for wound care [phone] Televideo if needed. Problem Noted Date Diagnosed [...] up with podiatry,. Letter in chart from [facility] podiatry they were unable to [...] ICD-10 update of inactive term PLATT RESEARCH OTHER*[id number] 02/20/2007 ADVANCE DIRECTIVE INFORMATION 01/19/2005 Overview: Yes, Patient instructed to provide copy of advance directive for provider to review and to be scanned into Electronic Medical Record No, Advance Directive brochure given to patient at prior appointment. SPINAL STENOSIS-LUMBAR 09/23/2002 Vitamin D deficiency Cervical spinal stenosis documented as of this encounter (statuses as of 09/06/2023) Resolved Problems Problem Noted Date Diagnosed Date Resolved Date Depression, unspecified 11/09/2021/2 Depression, unspecified 11/09/20210 05/2022 Cellulitis of right leg 07/13/20210 05/2022 Last Assessment & Plan: Suspect this could be early/localized. Will treat with 7 days antibiotic. If pt cannot be reassess by Dr. Braxton office early next week will need [facility] provider recheck Multiple and open wound [...] 11/17/19 23 LUMBAGO 12/24/2002 05/09/2007 LOC PRIM [id number] 12/24/200208/13 DEGENERATIVE SKIN DISORD 12/24/2002 VERTEBRAL FX [...] as of this encounter (statuses as of 09/06/2023) Immunizations Name Administration Dates Next Due COVID-19 [...] Miscellaneous Notes * Telephone Encounter - Erika Nuno [facility] - 09/06/2023 2:50 PM EDT Contacts Type Contact Phone/Fax 09/06/2023 02:28 PM EDT Phone (Outgoing) Lg Cooley "Rich" (Self) [phone] (H) 09/06/2023 03:01 PM EDT Phone (Outgoing) Lg Cooley" (Self) [phone] (H) Spoke to Patient Patient is having a EGD on 09/13. Patient has Atrial fibrillation with [id number] VASc of 7 with historyof stroke and requires Lovenox bridging . Patient used Lovenox before. See letters section for specific lovenox bridge instructions. Patient then gave a verbal and actual demonstration of technique & 10 step process, alternationof injection site, side effects and understanding of dosing calendar, and disposal of syringes & needles. Patient self-administered own LMWH injection in clinic without incident. No ADR reported. Actual Body Weight 88 kg [place] Body Weight 75.3 kg Adjusted Body Weight 80.4 kg Labs Drawn on 09/04/23 Serum creatinine: 3.26 mg/dL (A) 09/04/23 0000 Estimated creatinine clearance: 22.1 mL/min (A) Hemoglobin Results: Recent Labs Units 08/23/23 1246 08/16/23 0000 07/31/23 0000 HGB g/dL 8.5* 8.3* 10.3* Platelets: Recent Labs Units 08/23/23 1246 07/18/23 1334 07/07/23 0515 PLT K/uL 236 230 222 Lovenox Dose: 90 mg every 24 hours [facility]ically [facility], Sent bridging instructions (letter) to [facility] and Pt via attachment in Jenn Rykert, and Communicated to patient that Lovenox/ bridge instructions (letter) were sent to Pharmacy and [facility] will follow-up with pt on 09/08/23to review instructions. Erika Nuno [facility] Clinical Pharmacist Medication Therapy Disease Management 09/06/2023, 2:50 PM * Telephone Encounter - Luisa Zambrano RN - 09/06/2023 2:28 PM EDT Akshat is scheduled for an EGD 09/14/23. Please advise him on his warfarin. Thank you documented in this encounter Plan of Treatment Upcoming Encounters Date Type Department Care Team (Latest Contact Info) Description 4 8:20 AM EDT [facility] [address] [facility] [place] [phone] Presley Klein [address] [place] [address] 4 6:15 AM EDT Anticoagulation Centralized Clinical Pharmacy Services, [address] [place] [address] [place] [address] 4 6:30 AM EDT Anticoagulation Centralized Clinical Pharmacy Services, [address] [place] [address] [place] [address] 4 1:38 PM EDT Hospital Encounter [place] [facility], Operating Room, [facility] - 4th Floor [address] [place] [address] Amarilys Jaquez MD [address] [email or web address] [place] [address] 4 1:38 PM EDT - 4 2:14 PM EDT Surgery OR [facility], Operating Room, [facility] - 4th Floor [address] [place] [address] Amarilys Jaquez MD [address] [email or web address] [place] [address] ESOPHAGOGASTRODUODENOSCOPY (EGD), FLEXIBLE, TRANSORAL, DIAGNOSTIC 4 11:50 AM EDT Office Visit [address] [phone] Desai, Jocelyne Briggs[address] [place] [address] 4 2:00 PM EDT Office Visit Nephrology [address] [place] [address] ZeMarycarmen alan PA-C [address] [place] [address] 4 9:00 AM EST Office Visit Gastroenterolo gy [address] [place] [address] Moon Avila CRNP [address] [place] [address] 5 12:30 PM EST Nurse Only Ancillary [address] [place] [address] [place], Nurse [address] [place] [address] 5 2:30 PM EST Office Visit Family Medicine [address] [place] [phone] Jocelyne Desai[address] [place] [address] Scheduled Procedures Name Priority Associated Diagnoses Date/Ti [...] Additional history exists CKD HGB USE SMARTSET 27418 08/22/202408/22, 08/23/2023, 08/16/2023, Additional history exists CKD PHOS USE SMARTSET 71391 08/22/2024 07, 07/18/2023, 07/03/2023, Additional history exists [...] this encounter Medical Devices Implanted Type Area Tea Room Manager Device Identifier Shelf Expiration Date Model / Serial / Lot Shaft Fibula 6cm [id number] - [id number] Implanted:Qty: 1 on 09/05/2008 at OR [facility] Tissue - Human N/A: Spine Cervical MUSCULOSKELETAL TRANSPLANT FND 04/20/2010 [id number] / [id number] 0P / Stent Eso Gw 22x70 05938-162 - [id number] Implanted:Qty: 1 on 01/21/2008 at OR [facility] N/A: Esophagus [employer]US INC 04/12/2009 80249-780 / / [id number] Depuy Uniplate 32 Implanted:Qty: 1 on 09/05/2008 at OR [facility] N/A: Spine Cervical TAMMY & TAMMY DEPUY 1896-03-302 / / Depuy Uniplate Screw 14mm Implanted:Qty: 2 on 09/05/2008 at OR [facility] N/A: Spine Cervical TAMMY & TAMMY DEPUY 017 / / Depuy Lordotic Bengal Cage Implanted:Qty: 1 on 05/07/2010 at OR [facility] N/A: Neck 1773-06-146 / 1773--146 / Plate Zach 3 Level Ti 54mm - [id number] Implanted:Qty: 1 on 05/07/2010 at OR [facility] N/A: Neck JNJ : DEPUY SPINE [id number] / / Screw Zach Const St Ti 14mm - [id number] Implanted:Qty: 4 on 05/07/2010 at OR [facility] N/A: Neck JNJ : DEPUY SPINE [id number] 14 / / Screw 3.5x14 Mntr Fa [id number] - [id number] Implanted:Qty: 8 on 05/07/2010 at OR [facility] N/A: Spine Cervical JNJ : ETHICON CARDIOVATIONS [id number] / / Jarrell 3.1r917vw [id number] - [id number] Implanted:Qty: 1 on 05/07/2010 at OR [facility] N/A: Spine Cervical JNJ : ETHICON CARDIOVATIONS [id number] / / Screw Inner Mntr [id number] - [id number] Implanted:Qty: 8 on 05/07/2010 at OR [facility] N/A: Spine Cervical JNJ : ETH[employer]ON CARDIOVATIONS [id number] / / Envista Intraocular Lens Implanted:Qty: 1 on 03/10/2022 by Liang Marshall MD at [facility] Right: Eye BAUSCH & LOMB 08/13/2023 [id number] / [id number] / [id number] Envista Intraocular Lens Implanted:Qty: 1 on 03/24/2022 by Liang Marshall MD at [facility] Left: Eye BAUSCH & LOMB 07/13/2024 [id number] / [id number] / [id number] documented as of this encounter Visit Diagnoses Diagnosis History of pulmonary embolism- Primary Personal history of pulmonary embolism Chronic atrial fibrillation (HCC) Atrial fibrillation Anorexia Weight loss Loss of weight documented in this encounter Advance Directives Documents on File Type Date Recorded 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 No Care Teams Board Of Directors Relationship Specialty Start Date End Date Jocelyne Desai DO [address] [place] [address] [place] [address] PCP - General Internal Medicine 11/09/16 documented as of this encounter
--- OUTSIDE RECORDS SUMMARY | 2023-10-21 16:36 | External Medical Summary | Summary of Care ---
Author Name Unknown Organization [facility] Address [address] [facility] [place] [address] Phone [phone] Care Team Providers Care Patient Observation Assistant Name Role Phone Jocelyne Desai DO Primary Care Provider Reason for Visit * Reason Onset Date Comments Home Health 09/08/2023 Encounter Details Date Type Department Care Team (Late st Contact Info) Description 09/08/2023 Telephone Family Medicine [address] [phone] Jocelyne Desai DO [address] [place] [address] [place] [address] Home Health Allergies No known active allergiesdocumented as of this encounter (statuses as of 09/08/2023) Medications Medication Sig Dispensed Refills Start Date [...] as of this encounter (statuses as of 09/08/2023) Active Problems Patient Care Coordination No te Formatting of this note migh t be different from the original. Good connectivity [facility] for [facility] care [phone] Televideo if needed. Problem Noted Date Diagnosed Date MRSA (methicillin resistant Staphylococcus aureu s) 06/30/2023 Orthostatic hypotension 06/30/2023 Pressure injury of buttock, stage 2 06/30/2023 Full code status 06/28/2023 Calculus of gallbladder with out cholecystitis without obstruction 06/28/2023 Stasis ulcer 06/28/2023 History of [place] (myocardial infarction) 11/09/2021 Trigger [...] 11/14/2018 Type 2 diabetes, controlled, with peripheral ikre ropathy 11/14/2018 Last Assessment & Plan: DM [...] ICD-10 update of inactive term PLATT RESEARCH OTHER*[id number] 02/20/2007 ADVANCE DIRECTIVE INFORMATION 01/19/2005 Overview: Yes, Patient instructed to provide copy of advance directive for provider to review and to be scanned into Electronic Medical Record No, Advance Directive brochure given to patient at prior appointment. SPINAL STENOSIS-LUMBAR 09/23/2002 Vitamin D deficiency Cervical spinal stenosis documented as of this encounter (statuses as of 09/08/2023) Resolved Problems Problem Noted Date Diagnosed Date Resolved Date Depression, unspecified 11/09/2021 03/2 Depression, unspecified 11/09/20210 05/2022 Cellulitis of right leg 07/13/20210 05/2022 Last Assessment & Plan: Suspect this could be early/localized. Will treat with 7 days antibiotic. If pt cannot be reassess by Dr. Braxton office early next week will need [facility] provider recheck Multiple and open [...] 11/17/19 23 LUMBAGO 12/24/2002 05/09/2007 LOC PRIM [id number]-I-IMA 12/24/200208/13 DEGENERATIVE SKIN DISORD 12/24/2002 VERTEBRAL FX [...] as of this encounter (statuses as of 09/08/2023) Immunizations Name Administration Dates Next Due COVID-19 [...] No 02/16/2023 Does the household have a [facility] source of income? (Household - for [...] Notes * Telephone Encounter - Sofie Danielle [facility] - 09/08/2023 1:36 PM EDT Per MD 'standard anticoagulant hold' recommended. Typically, ACC only advises on warfarin & enoxaparin. Please provide clarification regarding duration of hold of aspirin for procedure. Thanks, Sofie Danielle, PharmD Clinical Pharmacist [facility] ([facility]) [phone] 09/08/2023 1:37 PM * Telephone Encounter - Sofie Danielle RPh - 09/08/2023 1:32 PM EDT [facility] advised patient on warfarin & lovenox instructions today for upcoming procedure 09/14/23 (seeletters for detailed instructions). Will route to gastroenterology team & provider to provide recommendations regarding aspirin. Thanks, Sofie Danielle, PharmD Clinical Pharmacist [facility] ([facility]) [phone] 09/08/2023 1:33 PM * Telephone Encounter - Sun Valle LPN - 09/08/2023 1:16 PM EDT Concerns Shanel PUENTE space control supervisor Calling from: [facility] Report/Concerns of: Medication Related Symptoms: none Narrative: Shanel, space control supervisor calling from [facility]. Patient is on coumadin and Lovenox right now for bridge before procedure. Lovenox has a possible major interaction with Aspirin. Does the doctor want to continue aspirin? Call back Shanel with any advice or orders at [phone] Please fax new orders to [phone] documented in this encounter Plan of Treatment Upcoming Encounters Date Type Department Care Team (Latest Contact Info) Description 12:57 PM EDT Hospital Encounter OR [facility], Operating Room, [facility] - 4th Floor [address] [place] [address] Amarilys Jaquez MD [address] [place] [address] [place] [address] 12:57 PM EDT - 1:33 PM EDT Surgery OR [facility], Operating Room, [facility] - 4th Floor [address] [place] [address] Amarilys Jaquez MD [address] [place] [address] ESOPHAGOGASTRODUODENOSCOPY (EGD), FLEXIBLE, TRANSORAL, DIAGNOSTIC 4 6:30 AM EDT Anticoagulation [facility], Ilya Lafleur [address] [place] [address] [place] [address] [place] [address] 4 11:50 AM EDT Office Visit Family [address] [place] [phone] [address] [place] [address] 4 2:00 PM EDT Office Visit Nephrology [address] [place] [address] ZemaMarycarmen lindsey PA-C [address] [place] [address] 4 9:00 AM EST Office Visit Gastroenterolo gy [address] [place] [address] Moon Avila CRNP [address] [place] [address] 5 12:30 PM EST Nurse Only Ancillary [address] [place] [address] [place], Nurse [address] [place] [address] 5 2:30 PM EST Office Visit Family Medicine [address] [place] [phone] Jocelyne Desai, [address] [place] [address] Scheduled Procedures Name Priority Associated Diagnoses Date/Ti [...] 08/13, 08/28/2023, Additional history exists Albumin/Creatinine Ratio 07/17/202407/17/2 024, 11/16/2022, 05/13/2022, Additional history exists CKD HGB USE SMARTSET 95262 08/22/202408/22, 08/23/2023, 08/16/2023, Additional history exists CKD PHOS USE SMARTSET 56095 08/22/202408/13, 07/18/2023, 07/03/2023, Additional history exists DTaP,Tdap,and [...] this encounter Medical Devices Implanted Type Area Air Quality Chemist Device Identifier Shelf Expiration Date Model / Serial / Lot Shaft Fibula 6cm [id number] - [id number] [place]ed:Qty: 1 [place]05[place] [facility] - Human N/A: Spine Cervical MUSCULOSKELETAL TRANSPLANT FND 04/20/2010 [id number] / [id number] 0P / Stent Eso Gw 22x70 [id number] - [id number] Implanted:Qty: 1 on 01/21/2008 [place] [facility] N/A: Esophagus [employer] 04/12/2009 96346-710 / / [id number] Depuy Uniplate 32 Implanted:Qty: 1 on 09/05/2008 [place] [facility] N/A: Spine Cervical TAMMY & TAMMY DEPUY 1897-02-302 / / Depuy Uniplate Screw 14mm Implanted:Qty: 2 on 09/05/2008 [place] [facility] N/A: Spine Cervical TAMMY & TAMMY DEPUY 1897-06-017 / / Depuy Lordotic Bengal Cage Implanted:Qty: 1 on 05/07/2010 [place] [facility] N/A: Neck 1773-06-146 / 1773-06-146 / Plate Zach 3 Level Ti 54mm - [id number] Implanted:Qty: 1 on 05/07/2010 [place] [facility] N/A: Neck JNJ : DEPUY SPINE [id number] / / Screw Zach Const St Ti 14mm - [id number] Implanted:Qty: 4 on 05/07/2010 [place] [facility] N/A: Neck JNJ : DEPUY SPINE [id number] 14 / / Screw 3.5x14 Mntr Fa [id number] - [id number] Implanted:Qty: 8 on 05/07/2010 [place] [facility] N/A: Spine Cervical JNJ : ETHICON C[employer]ATIONS [id number] / / Jarrell [id number] - [id number] Implanted:Qty: 1 on 05/07/2010 [place] [facility] N/A: Spine Cervical JNJ : ETHICON CARDIOVATIONS [id number] / / Screw Inner Mntr [id number] - [id number] Implanted:Qty: 8 on 05/07/2010 [place] [facility] N/A: Spine Cervical JNJ : ETHICON CARDIOVATIONS [id number] / / Envista Intraocular Lens Implanted:Qty: 1 on 03/10/2022 by Liang Marshall MD at OR [facility] Right: Eye BAUSCH & LOMB 08/13/2023 [id number] / [id number] / [id number] Envista Intraocular Lens Implanted:Qty: 1 on 03/24/2022 by Liang Marshall MD at OR [facility] Left: Eye BAUSCH & LOMB 07/13/2024 [id number] / [id number] / [id number] documented as of this encounter Advance Directives Documents on File Type Date Recorded 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 FOR LIFE-SUSTAINING TREATMENT * No [...] Power of Attor andrew? No Care Teams Patient Observation Assistant Relationship Specialty Start Date End Date Jocelyne Desai DO [address] [place] [address] [place] [address] PCP - General Internal Medicine 11/09/16 documented as of this encounter
--- OUTSIDE RECORDS SUMMARY | 2023-10-21 16:36 | External Medical Summary | Summary of Care ---
Author Name Unknown Organization [facility] Address [address] [facility] [place] [address] Phone [phone] Care Team Providers Care Entry Level Machine Operator Name Role Phone Jocelyne Desai Primary Care Provider [phone] Reason for Visit * Reason Onset Date Comments Test Results 09/06/2023 Encounter Details Date Type Department Care Team (Late st Contact Info) Description 09/06/2023 Telephone Nephrology, Cely Zaldivar [address] [place] [address] Jennifer Agustin MD [address] [facility] [place] [address] Test Results Allergies No known active allergiesdocumented as of [...] morning 1 tablet before bed. 4 Active Potassium Chloride Candi ER 20 MEQ Oral Tablet Extended Release Take 2 Tablets by mouth in the morning and 2 Tablets before bedtime. 4 09/06/19 Discontinued documented as of this encounter (statuses as of 09/06/2023) Active Problems Patient Care Coordination No te Formatting of this note migh t be different from the original. Good connectivity [facility] for wound care [phone] Televideo if needed. Problem Noted Date Diagnosed [...] with podiatry,. Letter in chart from [facility] podiatry they were unable to get [...] ICD-10 update of inactive term PLATT RESEARCH OTHER*[id number] 02/20/2007 ADVANCE DIRECTIVE INFORMATION 01/19/2005 Overview: Yes, [...] [facility] office early next week will need [facility] provider recheck Multiple and open wound [...] 11/17/19 23 LUMBAGO 12/24/2002 05/09/2007 LOC PRIM [id number] 12/24/200208/13 DEGENERATIVE SKIN DISORD 12/24/2002 VERTEBRAL FX [...] Telephone Encounter - Marisela Peraza LPN - 09/06/2023 3:36 PM EDT Pt did not receive message He is informed of lab results and recommendations Will change Potassium to 2 tabs in AM and 1 tab in PM Adjustment made in med list Lab orders placed in [facility] system Mailed to pt * Telephone Encounter - Marisela Peraza LPN - 09/06/2023 3:31 PM EDT ----- Message from Jennifer Agustin MD sent at 09/06/2023 3:26 PM EDT ----- Kidney labs stable; potassium normalized (high normal) -lower potassium supplement to 40 mEq in a.m. and in p.m. 20 mEq -repeat basic metabolic panel in 1 month My [facility] sent Neph nurse please follow-up with patient to confirm and update med list, order labs documented in this encounter Plan of Treatment Upcoming Encounters Date Type Department Care Team (Latest Contact Info) Description 4 8:20 AM EDT Laboratory Laboratory, [facility] [address] [facility] [place] [phone] [facility] [address] 4 6:15 AM EDT Anticoagulation [facility], [address] [place] [address] [place] [address] 4 6:30 AM EDT Anticoagulation [facility], Ilya Lafleur [address] [place] [address] [place] [address] [place] [address] 4 1:38 PM EDT Hospital Encounter OR [facility], Operating Room, [facility] - 4th Floor [address] [place] [phone] Amarilys Jaquez MD [address] [place] [address] [place] [address] 4 1:38 PM EDT - 4 2:14 PM EDT Surgery OR [facility], Operating Room, [facility] - 4th Floor [address] [place] [address] Amarilys Jaquez MD [address] [facility] [place] [address] ESOPHAGOGASTRODUODENOSCOPY (EGD), FLEXIBLE, TRANSORAL, DIAGNOSTIC 4 11:50 AM EDT Office Visit Family [address] [place] [phone] Jocelyne Desai[address] [place] [address] 4 2:00 PM EDT Office Visit Nephrology [address] [place] [address] ZemaitisMarycarmen PA-C [address] [facility] [address] 4 9:00 AM EST Office Visit Gastroenterolo gy [address] [place] [address] Moon Avila, OLEG [address] [place] [address] 5 12:30 PM EST Nurse Only Ancillary [address] [place] [address] [place], Nurse [address] [place] [address] 5 2:30 PM EST Office Visit Family Medicine [address] [place] [phone] Jocelyne Desai, [address] [place] [address] Scheduled Orders Name Type Priority Associated Diagnoses Orde r Schedule BASIC METABOLIC PANEL Lab Routine Chronic kidney disease, stage 3b (HCC) Expected: 09/06/2023 (Approximate), Expires: 09/05/2024 Scheduled Procedures Name Priority Associated Diagnoses Date/Ti [...] Additional history exists CKD HGB USE SMARTSET 82788 08/22/202408/22, 08/23/2023, 08/16/2023, Additional history exists CKD PHOS USE SMARTSET 85646 08/22/202408/13, 07/18/2023, 07/03/2023, Additional history exists DTaP,Tdap,and [...] this encounter Medical Devices Implanted Type Area Tufting Machine Operator Single Needle Device Identifier Shelf Expiration Date Model / Serial / Lot Shaft Fibula 6cm [id number] - [id number] Implanted:Qty: 1 on 09/05/2008 at [place] [facility] [place] Tissue - Human N/A: Spine Cervical MUSCULOSKELETAL TRANSPLANT FND 04/20/2010 [id number] / [id number] 0P / Stent Eso Gw 22x70 [id number] - [id number] Implanted:Qty: 1 on 01/21/2008 at OR [facility] N/A: Esophagus [employer]US [employer] 04/12/2009 51566-267 / / [id number] Depuy Uniplate 32 Implanted:Qty: 1 on 09/05/2008 at [place] [facility] N/A: Spine Cervical ATMMY & TAMMY DEPUY 1897-02-302 / / Depuy Uniplate Screw 14mm Implanted:Qty: 2 on 09/05/2008 at OR [facility] N/A: Spine Cervical TAMMY & TAMMY DEPUY 1897--017 / / Depuy Lordotic Bengal Cage Implanted:Qty: 1 on 05/07/2010 at OR [facility] N/A: Neck 1773-06-146 / 1773-06-146 / Plate Zach 3 Level Ti 54mm - [id number] Implanted:Qty: 1 on 05/07/2010 at OR [facility] N/A: Neck JNJ : DEPUY SPINE [id number] / / Screw Zach Const St Ti 14mm - [id number] Implanted:Qty: 4 on 05/07/2010 at OR [facility] N/A: Neck JNJ : DEPUY SPINE [id number] 14 / / Screw 3.5x14 Mntr Fa [id number] - [id number] Implanted:Qty: 8 on 05/07/2010 at [place] [facility] N/A: Spine Cervical JNJ : ETHICON CARDIOVATIONS [id number] / / Jarrell [id number] - [id number] Implanted:Qty: 1 on 05/07/2010 at [place] [facility] N/A: Spine Cervical JNJ : ETHICON CARDIOVATIONS [id number] / / Screw Inner Mntr [id number] - [id number] Implanted:Qty: 8 on 05/07/2010 at [place] [facility] N/A: Spine Cervical JNJ : ETHICON CARDIOVATIONS [id number] / / Envista Intraocular Lens Implanted:Qty: 1 on 03/10/2022 by Liang Marshall MD at OR [facility] Right: Eye BAUSCH & LOMB 08/13/2023 [id number] / [id number] / [id number] Envista Intraocular Lens Implanted:Qty: 1 on 03/24/2022 by Liang Marshall MD at OR [facility] Left: Eye BAUSCH & LOMB 07/13/2024 [id number] / [id number] / [id number] documented as of this encounter Visit Diagnoses Diagnosis Chronic kidney disease, stage 3b (HCC)- Primary Anorexia Weight loss Loss of weight documented in this encounter Advance Directives Documents on File Type Date Recorded Patient Home Demonstrator Expl anation POLST 01/26/2021 [place] OR [facility] FOR LIFE-SUSTAINING TREATMENT * [...] Power of Attor andrew? No Care Teams Entry Level Machine Operator Relationship Specialty Start Date End Date Jocelyne Desai DO [address] [place] [address] [place] [address] PCP - General Internal Medicine 11/09/16 documented as of this encounter
--- OUTSIDE RECORDS SUMMARY | 2023-10-21 16:36 | External Medical Summary | Summary of Care ---
Author Name Unknown Organization [facility] Address [address] [facility] [place] [address] Phone [phone] Care Team Providers Care 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s Editor Name Role Phone Desai Jocelyne Briggs DO Primary Care Provider + [phone] Reason for Visit * Reason Comments Dosage Adjustment Via Phone (anticoag Cl inic) Encounter Details Date Type Department Care Team (Late st Contact Info) Description 08/31/2023 6:00 PM EDT Anticoagulation Centralized Clinical Pharmacy Services, Ilya Lafleur [address] [place] [address] [place] [address] [facility], [address] [place] [address] Chronic atrial fibrillation (HCC)* Allergies No known [...] morning and 2 Tablets before bedtime. 08/30/2023 Active documented as of this encounter (statuses as of 09/06/2023) Active Problems Patient Care Coordination No te Formatting of this note migh t be different from the original. Good connectivity [facility] for wound care [phone] Televideo if needed. Problem Noted Date Diagnosed [...] ICD-10 update of inactive term PLATT RESEARCH OTHER*[id number] 02/20/2007 ADVANCE DIRECTIVE INFORMATION 01/19/2005 Overview: Yes, [...] [place] office early next week will need [facility] provider recheck Multiple and open wound [...] 11/17/19 23 LUMBAGO 12/24/2002 05/09/2007 LOC PRIM AUGEBKHE-F-LDM 12/24/200208/13 DEGENERATIVE SKIN DISORD 12/24/2002 VERTEBRAL FX [...] No 02/16/2023 Does the household have a [facility] source [facility] income? (Household - for [...] this encounter Progress Notes * Korin Meléndez, pot tender - 08/31/2023 11:37 AM EDT Contacts Type Contact Phone/Fax 08/31/2023 11:32 AM EDT Phone (Outgoing) Lg Cooley "Akshat" (Self) [phone] (H) Spoke to Patient Subjective Patient Findings Negatives: Signs/symptoms of bleeding, Change in health, Change in activity, Upcoming invasive procedure, Missed doses, Extra doses, Change in medications, Change in diet/appetite, Bruising Comments: is going to draw pts labs going forward. Moved next appt to 09/07 Advised patient to contact Anticoagulation Clinic if any unusual bruising or bleeding, recent illness, changes in medication, or questions/concerns. PT/INR results, Coumadin dose instructions, and next PT/INR date communicated as noted by Pharmacist: Yes AMOS ARAMBULA 08/31/2023, 11:37 AM * Estefania Palacios RP - 08/31/2023 11:19 AM EDT Images from the original note were not included. Coumadin Clinic (region specific) Objective Current Warfarin Dose As of 08/31/2023 Warfarin maintenance plan: 3 mg (3 mg x 1) every Sun, Tue, Mariel; 1.5 mg (3 mg x 0.5) all other days INR Result As of 08/31/2023 INR goal: 2.0-3.0 INR used for dosin.3 (08/31/2023) Assessment & Plan Warfarin Plan As of 08/31/2023 Full warfarin instructions: 08/30: Hold; 08/31: Hold; Otherwise 3 mg every Sun, Tue, Mariel; 1.5 mg all other days Next INR check: 09/07/2023 Confirm if [facility] nurses will draw going forward or if pt will go to lab. Today's INR drawnin lab. Repeat PT/INR in 1 week(s) Weekly dose: not changed Additional Dosing Information: Description [facility] Nurses -- Mondays and Fridays ; fax - [phone] (prev [facility]) Tech to contact patient with dose instructions as noted. Estefania Palacios RPh 08/31/2023, 11:19 AM documented in this encounter Plan of Treatment Upcoming Encounters Date Type Department Care Team (Latest Contact Info) Description 8:20 AM EDT [facility] [address] [facility] [place] [phone] Presley Klein [address] [facility] [place] [address] 4 6:15 AM EDT Anticoagulation Centralized Clinical Pharmacy Services, [address] [place] [address] [place] [address] 4 6:30 AM EDT Anticoagulation Centralized Clinical Pharmacy Services, [address] [place] [address] [place] [address] 4 1:38 PM EDT Hospital Encounter OR GL, Operating Room, [facility] Floor [address] [place] [address] [place] [address] Amarilys Jaquez MD [facility] [place] [address] 4 1:38 PM EDT - 4 2:14 PM EDT Surgery OR [facility], Operating Room, [facility] Floor [address] [place] [address] Amarilys Jaquez MD [facility] [employer] [place] [address] ESOPHAGOGASTRODUODENOSCOPY (EGD), FLEXIBLE, TRANSORAL, DIAGNOSTIC 4 11:50 AM EDT Office Visit Family Medicine [address] [place] [phone] Jocelyne Desai[address] [place] [address] 4 2:00 PM EDT Office Visit Nephrology [address] [place] [address] Marycarmen Kowalski PA-C [address] [place] [address] 4 9:00 AM EST Office Visit Gastroenterolo gy [address] [place] [address] Moon Avila, OLEG [address] [place] [address] 5 12:30 PM EST Nurse Only Ancillary [address] [place] [address] [place], Nurse [address] [place] [address] 5 2:30 PM EST Office Visit Family Medicine [address] [place] [phone] Jocelyne Desai[address] [place] [address] Scheduled Procedures Name Priority Associated Diagnoses Date/Ti [...] Additional history exists CKD HGB USE SMARTSET 18452 08/22/202408/22, 08/23/2023, 08/16/2023, Additional history exists CKD PHOS USE SMARTSET 13500 08/22/202408/13, 07/18/2023, 07/03/2023, Additional history exists DTaP,Tdap,and [...] this encounter Medical Devices Implanted Type Area Shaving Machine Operator Device Identifier Shelf Expiration Date Model / Serial / Lot Shaft Fibula 6cm [id number] - [id number] Implanted:Qty: 1 on 09/05/2008 at OR [facility] Tissue - Human N/A: Spine Cervical MUSCULOSKELETAL TRANSPLANT FND 04/20/2010 [id number] / [id number] / Stent Eso Gw 22x70 [id number] - [id number] Implanted:Qty: 1 on 01/21/2008 at OR [facility] N/A: Esophagus [employer] 04/12/2009 [id number] / / [id number] Depuy Uniplate 32 Implanted:Qty: 1 on 09/05/2008 [...] [facility] [place] N/A: Neck 1773-06-146 / [id number] / Plate Zach 3 Level Ti 54mm - [id number] Implanted:Qty: 1 on 05/07/2010 at OR [facility] N/A: Neck JNJ : DEPUY SPINE [id number] / / Screw Zach Const St Ti 14mm - [id number] Implanted:Qty: 4 on 05/07/2010 at OR [facility] N/A: Neck JNJ : DEPUY SPINE [id number] / / Screw 3.5x14 Mntr Fa [id number] - [id number] Implanted:Qty: 8 on 05/07/2010 at OR [facility] N/A: Spine Cervical JNJ : ETHICON CARD[employer]ATIONS [id number] / / Jarrell [id number] - [id number] Implanted:Qty: 1 on 05/07/2010 at OR [facility] N/A: Spine Cervical JNJ : ETHICON CARDI[employer]ATIONS [id number] / / Screw Inner Mntr [id number] - [id number] Implanted:Qty: 8 on 05/07/2010 at OR [facility] N/A: Spine Cervical JNJ : ETHICON CARD[employer]ATIONS [id number] / / Envista Intraocular Lens Implanted:Qty: 1 on 03/10/2022 by Liang Marshall MD at OR [facility] Right: Eye BAUSCH & LOMB 08/13/2023 [id number] / [id number] / [id number] Envista Intraocular Lens Implanted:Qty: 1 on 03/24/2022 by Liang Marshall MD at OR [facility] Left: Eye BAUSCH & LOMB 07/13/2024 [id number] / [id number] / [id number] documented as of this encounter Visit Diagnoses Diagnosis Chronic atrial fibrillation (HCC)- Primary Atrial fibrillation Anorexia Weight loss Loss of weight documented in this encounter Advance Directives Documents on File Type Date Recorded Patient Hourly Team Members Torres ARREOLA 01/26/2021 [place] OR [facility] * [...] Power of Attor andrew? No Care Teams 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s Editor Relationship Specialty Start Date End Date Jocelyne Desai DO [address] [place] [address] [place] [phone] PCP - General Internal Medicine 11/09/16 documented as of this encounter
--- OUTSIDE RECORDS SUMMARY | 2023-10-21 16:36 | External Medical Summary | Summary of Care ---
Author Name Unknown Organization [facility] Address [address] [facility] [place] [address] Phone [phone] Care Team Providers Care Flue Tile Press Operator Name Role Phone DesaiElissaJocelyne Briggs DO Primary Care Provider + [phone] Reason for Visit * Reason Comments Dosage Adjustment Via Phone (anticoag Cl inic) Encounter Details Date Type Department Care Team (Late st Contact Info) Description 09/08/2023 6:15 AM EDT Anticoagulation Centralized Clinical Pharmacy Services, Ilya Lafleur [address] [place] [address] [place] [address] [place] [address] Anticoagulation management encounter*; Chronic atrial fibrillation (HCC); History of pulmonary embolism Allergies No known active allergiesdocumented as of [...] or Pain, Severe. 30 Tablet 07/05/2023 Active Sennosides-Docu sate Sodium 8.6-50 MG [...] to anticoagulation clinic 5 mL 09/08/2023 Active Enoxaparin Sodium 100 MG/ML Injection Solution Prefilled Syringe (Lovenox)Indica tions:History of pulmonary embolism Inject 0.9ml (90mg) under the skin every 24 hours according to anticoagulation clinic 5 mL 09/06/2023 07/26/20 24 Discontinu ed(Refill) documented as of this encounter (statuses as of 09/08/2023) Active Problems Patient Care Coordination No te Formatting of this note migh t be different from the original. Good connectivity [facility] for wound care [phone] Televideo if needed. 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 1 [...] ICD-10 update of inactive term PLATT RESEARCH OTHER*[id number] 02/20/2007 ADVANCE DIRECTIVE INFORMATION 01/19/2005 Overview: Yes, [...] 11/17/19 23 LUMBAGO 12/24/2002 05/09/2007 LOC PRIM [id number]-MMD 12/24/200208/13 DEGENERATIVE SKIN DISORD 12/24/2002 VERTEBRAL FX [...] mRNA, LNP-s, No Pre serve, 2-Dose Series ([facility]) 02/16/2021,04/09/2020,03/19/2020 COVID-19, MRNA-LNP, 23-24, P F, 30 MCG/0.3 mL, 12 YRS AND ABOVE, IM ([facility]) 11/16/2022 Covid-19, Mrna, Lnp-s, Pf, [...] No 02/16/2023 Does the household have a [facility] [...] of this encounter Progress Notes * Sofie Daneille, [facility] - 09/08/2023 8:46 AM EDT Spoke to Akshat to review Lovenox bridging instructions for upcoming procedure. Lovenox dosing schedule faxed to pharmacy previously with prescription. Note - rx was sent to mail order pharmacy; pt will need rx by Monday09/11/23 -- will send to local pharmacy. . Used Lovenox previously and confirmed understanding of the following: Your Lovenox dose is 90 mg which will be injected every 24 hours as noted on your dosing schedule. Administration: Lovenox Should be Injected on either side of the abdomen 2 inches from the belly button. Injection site should be rotated with each injection. Wash hands and swab injection area with alcohol. Remove needle cap Push plunger to expel Lovenox to the 90 mg // 0.9 mL brigida, this will be waste. Pinch and inch of skin and insert the needle at a 90 degree angle into the fold of skin, inject the remainder of the syringe Remove needle from the skin and press firmly on plunger to activate the safety device. Discard in sharps container. Patient verbalized understanding of above. Patient aware last dose of coumadin prior to the procedure will be 09/08/23 and will bridge with Lovenox as outlined on dosing schedule in letters. Patient aware to contact [facility] Clinic with any questions or concerns regarding bridge or should procedure be cancelled or rescheduled. Thanks, Teresa CastilloD Clinical Pharmacist Centralized Clinical Pharmacy Services ([facility]) [phone] 09/08/2023 8:46 AM * Sofie Danielle RPh - 09/08/2023 8:45 AM EDT Medication Therapy Disease Management - Anticoagulation Patient: Lg Colby Yasir | : 1950 Subjective Contacts Type Contact Phone/Fax 09/08/2023 11:37 AM EDT Phone (Outgoing) Lg Cooley "Akshat" (Self) [phone] (H) Patient-Reported Symptoms: Patient Findings Positives: Upcoming invasive procedure (EGD 09/13 - lovenox bridge (see letters)) Objective Current Warfarin Dose As of 09/08/2023 Warfarin maintenance plan: 3 mg (3 mg x 1) every Sun, Tue, Mariel; 1.5 mg (3 mg x 0.5) all other days INR Result As of 09/08/2023 INR goal: 2.0-3.0 INR used for dosing: No new INR was available at the time of this encounter. Assessment & Plan Warfarin Plan As of 09/08/2023 Full warfarin instructions: 09/08: Hold; 09/09: Hold; 09/10: Hold; 09/11: Hold; 09/12: Hold; 8/1: 4.5 mg; 8/2: 3 mg; 8/3: 3 mg; Otherwise 3 mg every Sun, Tue, Mariel; 1.5 mg all other days Next INR check: 09/22/2023 Repeat PT/INR in 2 week(s) Weekly dose: not changed Additional Dosing Information: Description [facility] Nurses -- Mondays and Fridays ; fax - [phone] ([facility]) EGD 09/14/23 Sofie Danielle [facility] Clinical Pharmacist 09/08/2023, 8:45 AM * Janice Shaw foamite mixer - 09/08/2023 7:09 AM EDT No new INR result available from yesterday. Please advise as patient has procedure next week. Thank you, Janice Shaw [facility] It Applications Developer II Centralized Clinical Pharmacy Services ([facility]) 09/08/2023,7:09 AM documented in this encounter Plan of Treatment Upcoming Encounters Date Type Department Care Team (Latest Contact Info) Description 09/14/2023 12:57 PM EDT Hospital Encounter OR [facility], Operating Room, [facility] - 4th Floor [address] [place] [phone] Amarilys Jaquez MD [address] [place] [address] [place] [phone] 09/14/2023 12:57 PM EDT - 09/14/2023 1:33 PM EDT Surgery OR GL, Operating Room, [facility] - 4th Floor [address] [place] [address] Amarilys Jaquez MD [address] [place] [address] [place] [address] ESOPHAGOGASTRODUODENOSCOPY (EGD), FLEXIBLE, TRANSORAL, DIAGNOSTIC 09/27/2023 11:50 AM EDT Office Visit Family Medicine [address] [place] [phone] Jocelyne Desai[address] [place] [address] 11/20/2023 2:00 PM EDT Office Visit Nephrology [address] [place] [address] Zemaitis, Marycarmen Dill PA-C [address] [facility] [address] 01/19/2024 9:00 AM EST Office Visit Gastroenterology [address] [place] [address] Moon Avila, PATROL INSPECTOR [address] [place] [address] 02/20/2024 12:30 PM EST Nurse Only Ancillary [address] [place] [address] [place], Nurse [address] [place] [address] 03/08/2024 2:30 PM EST Office Visit Family Medicine [address] [place] [phone] Jocelyne Desai[address] [place] [address] Scheduled Procedures Name Priority Associated Diagnoses Date/Ti [...] Additional history exists CKD HGB USE SMARTSET 12493 08/22/202408/22, 08/23/2023, 08/16/2023, Additional history exists CKD PHOS USE SMARTSET 56939 08/22/202408/13, 07/18/2023, 07/03/2023, Additional history exists DTaP,Tdap,and [...] this encounter Medical Devices Implanted Type Area Retort Furnace Operator Device Identifier Shelf Expiration Date Model / Serial / Lot Shaft Fibula 6cm [id number] - [id number] Implanted:Qty: 1 on 09/05/2008 at OR [facility] Tissue - Human N/A: Spine Cervical MUSCULOSKELETAL TRANSPLANT FND 04/20/2010 [id number] / [id number] 0P / Stent Eso Gw 22x70 [id number] - [id number] Implanted:Qty: 1 on 01/21/2008 at OR [facility] N/A: Esophagus [employer]US INC 04/12/2009 [id number] / / [id number] Depuy Uniplate 32 Implanted:Qty: 1 on 09/05/2008 [...] Plate Zach 3 Level Ti 54mm - [id number] Implanted:Qty: 1 on 05/07/2010 at OR [facility] N/A: Neck JNJ : DEPUY SPINE [id number] / / Screw Zach Const St Ti 14mm - [id number] Implanted:Qty: 4 on 05/07/2010 at OR [facility] N/A: Neck JNJ : DEPUY SPINE [id number] 14 / / Screw 3.5x14 Mntr Fa [id number] - [id number] Implanted:Qty: 8 on 05/07/2010 at OR [facility] N/A: Spine Cervical JNJ : ETHICON CARDIOVATIONS [id number] / / Jarrell [id number] - [id number] Implanted:Qty: 1 on 05/07/2010 at OR [facility] N/A: Spine Cervical JNJ : ETHICON CARDIOVATIONS [id number] / / Screw Inner Mntr [id number] - [id number] Implanted:Qty: 8 on 05/07/2010 at OR [facility] N/A: Spine Cervical JNJ : ETHICON CARDIOVATIONS [id number] / / Envista Intraocular Lens Implanted:Qty: 1 on 03/10/2022 by Liang Marshall MD at OR [facility] Right: Eye BAUSCH & LOMB 08/13/2023 [id number] / [id number] / [id number] Envista Intraocular Lens Implanted:Qty: 1 on 03/24/2022 by Liang Marshall MD at OR 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 No Care Teams Flue Tile Press Operator Relationship Specialty Start Date End Date Jocelyne Desai DO [address] [place] [address] [place] [address] PCP - General Internal Medicine 11/09/16 documented as of this encounter
--- OUTSIDE RECORDS SUMMARY | 2023-10-21 16:36 | External Medical Summary | Summary of Care ---
Author Name Unknown Organization [facility] Address [address] [facility] [place] [address] Phone [phone] Care Team Providers Care Cat Driver Name Role Phone Jocelyne Desai Primary Care Provider [phone] Reason for Visit * Reason Onset Date Comments Test Results 09/06/2023 Encounter Details Date Type Department Care Team (Late st Contact Info) Description 09/06/2023 Telephone Nephrology, Cely Zaldivar [address] [place] [address] Jennifer Agustin MD 200 [place] [address] Test Results Allergies No known active allergiesdocumented [...] [facility] [phone] Televideo if needed. Problem Noted Date Diagnosed [...] podiatry,. Letter in chart from [facility] podiatry they were unable to get [...] ICD-10 update of inactive term PLATT RESEARCH OTHER*[id number] 02/20/2007 ADVANCE DIRECTIVE INFORMATION 01/19/2005 Overview: Yes, [...] 11/17/19 23 LUMBAGO 12/24/2002 05/09/2007 LOC PRIM [id number] 12/24/200208/13 DEGENERATIVE SKIN DISORD 12/24/2002 VERTEBRAL FX [...] in med list Lab orders placed in [employer] system Mailed to pt * Telephone Encounter - Marisela Peraza LPN - 09/06/2023 3:31 PM EDT ----- Message from Jennifer Agustin MD sent at 09/06/2023 3:26 PM EDT ----- Kidney labs stable; potassium normalized (high normal) -lower potassium supplement to 40 mEq in a.m. and in p.m. 20 mEq -repeat basic metabolic panel in 1 month My [employer] sent Neph nurse please follow-up with patient to confirm and update med list, order labs documented in this encounter Plan of Treatment Upcoming Encounters Date Type Department Care Team (Latest Contact Info) Description 4 8:20 AM EDT Laboratory Laboratory, [facility] 132 [facility] [place] [phone] [facility] [address] 4 6:15 AM EDT Anticoagulation Centralized Clinical Pharmacy Services, [address] [place] [address] [place] [address] 4 6:30 AM EDT Anticoagulation Centralized Clinical Pharmacy Services, Ilya Lafleur [address] [place] [address] [place] [address] [place] [address] 4 1:38 PM EDT Hospital Encounter OR [facility], Operating Room, [facility] - 4th Floor [address] [place] [phone] Amarilys Jaquez MD [address] [place] [address] [place] [address] 4 1:38 PM EDT - 4 2:14 PM EDT Surgery OR GL, Operating Room, [facility] - 4th Floor [address] [place] [address] Amarilys Jaquez MD 310 [facility] [place] [address] ESOPHAGOGASTRODUODENOSCOPY (EGD), FLEXIBLE, TRANSORAL, DIAGNOSTIC 4 11:50 AM EDT Office Visit Family [address] [place] [phone] Jocelyne Desai[address] [place] [address] 4 2:00 PM EDT Office Visit Nephrology [address] [place] [address] ZemaitisMarycarmen PA-C [address] [facility] [address] 4 9:00 AM EST Office Visit Gastroenterolo gy [address] [place] [address] Moon Avila, OLEG [address] [place] [address] 5 12:30 PM EST Nurse Only Ancillary [address] [place] [address] [place], Nurse [address] [place] [address] 5 2:30 PM EST Office Visit Family Medicine [address] [place] [phone] Jocelyne Desai, [address] [place] [address] Scheduled Orders Name [...] Additional history exists CKD HGB USE SMARTSET 26907 08/22/202408/22, 08/23/2023, 08/16/2023, Additional history exists CKD PHOS USE SMARTSET 00999 08/22/202408/13, 07/18/2023, 07/03/2023, Additional history exists DTaP,Tdap,and [...] this encounter Medical Devices Implanted Type Area Flanging Operator Device Identifier Shelf Expiration Date Model / Serial / Lot Shaft Fibula 6cm [id number] - [id number] Implanted:Qty: 1 on 09/05/2008 at OR [facility] Tissue - Human N/A: Spine Cervical MUSCULOSKELETAL TRANSPLANT FND 04/20/2010 [id number] / [id number] 0P / Stent Eso Gw 22x70 69961-797 - [id number] Implanted:Qty: 1 on 01/21/2008 at OR [facility] N/A: Esophagus [employer] INC 04/12/2009 34097-999 / / [id number] Depuy Uniplate 32 Implanted:Qty: 1 on 09/05/2008 at OR [facility] N/A: Spine Cervical TAMMY & TAMMY DEPUY 1897-02-302 / / Depuy Uniplate Screw 14mm Implanted:Qty: 2 on 09/05/2008 at OR [facility] N/A: Spine Cervical TAMMY & TAMMY DEPUY 1897--017 / / Depuy Lordotic Bengal Cage Implanted:Qty: 1 on 05/07/2010 at OR [facility] N/A: Neck 1773-06-146 / 1773-06-146 / Plate Zach 3 Level Ti 54mm - [id number] Implanted:Qty: 1 on 05/07/2010 at OR [facility] N/A: Neck JNJ : DEPUY SPINE [id number] / / Screw Zach Const St Ti 14mm - [id number] Implanted:Qty: 4 on 05/07/2010 at OR [facility] N/A: Neck JNJ : DEPUY SPINE [id number] / / Screw 3.5x14 Mntr Fa [id number] - [id number] Implanted:Qty: 8 on 05/07/2010 at OR [facility] N/A: Spine Cervical JNJ : ETHICON CARDIOVATIONS [id number] / / Jarrell [id number] - [id number] Implanted:Qty: 1 on 05/07/2010 at OR [facility] N/A: Spine Cervical JNJ : ETHICON CARDIOVATIONS [id number] / / Screw Inner Mntr [id number] - [id number] Implanted:Qty: 8 on 05/07/2010 at OR [facility] N/A: Spine Cervical JNJ : ETHICON CARDIOVATIONS [id number] / / Envista Intraocular Lens Implanted:Qty: 1 on 03/10/2022 by Liang Marshall MD at OR [facility] Right: Eye BAUSCH & LOMB 08/13/2023 [id number] / [id number] / [id number] Envista Intraocular Lens Implanted:Qty: 1 on 03/24/2022 by Liang Marshall MD at OR [facility] Left: Eye BAUSCH & LOMB 07/13/2024 [id number] / [id number] / [id number] documented as of this encounter Visit Diagnoses Diagnosis Chronic kidney disease, stage 3b (HCC)- Primary Anorexia Weight loss Loss of weight documented in this encounter Advance Directives Documents on File Type Date Recorded 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 No Care Teams Cat Driver Relationship Specialty Start Date End Date Jocelyne Desai DO [address] [place] [address] [place] [address] PCP - General Internal Medicine 11/09/16 documented as of this encounter
--- OUTSIDE RECORDS SUMMARY | 2023-10-21 16:37 | External Medical Summary | Summary of Care ---
Author Name Unknown Organization [facility] Address [address] [facility] [place] [address] Phone [phone] Care Team Providers Care Metalsmith Apprentice Name Role Phone Desai Jocelyne Briggs DO Primary Care Provider + [phone] Reason for Visit * Reason Comments Dosage Adjustment Via Phone (anticoag Cl inic) Encounter Details Date Type Department Care Team (Late st Contact Info) Description 08/31/2023 6:00 PM EDT Anticoagulation Centralized Clinical Pharmacy Services, Ilya Lafleur [address] [place] [address] [place] [address] [facility], [address] [place] [address] Chronic atrial fibrillation (HCC)* Allergies No known [...] be different from the original. Good connectivity [facility] for wound care [phone] Televideo if needed. 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 (Household - for [...] this encounter Progress Notes * Korin Meléndez, salesperson men's furnishings - 08/31/2023 11:37 AM EDT Contacts Type Contact Phone/Fax 08/31/2023 11:32 AM EDT Phone (Outgoing) Lg Cooley "Akshat" (Self) [phone] (H) Spoke to Patient Subjective Patient Findings [...] days Next INR check: 09/07/2023 Confirm if [facility] nurses will draw going forward or if pt will go to lab. Today's INR drawnin lab. Repeat PT/INR in 1 week(s) Weekly dose: not changed Additional Dosing Information: Description [facility] Nurses -- Mondays and Fridays ; fax - [phone] (prev [facility]) Tech to contact patient with dose instructions as noted. Estefania Palacios RPh 08/31/2023, 11:19 AM Electronically signed by Estefania Palacios [facility] at 08/31/2023 11:38 AM EDT documented in this encounter Plan of Treatment Upcoming Encounters Date Type Department Care Team (Latest Contact Info) Description 8:20 AM EDT [facility] 132 [facility] [place] [phone] Presley Klein [facility] [place] [address] 4 6:15 AM EDT Anticoagulation Centralized Clinical Pharmacy Services, [address] [place] [address] [place] [address] 4 6:30 AM EDT Anticoagulation Centralized Clinical Pharmacy Services, [address] [place] [address] [place] [address] 4 1:38 PM EDT Hospital Encounter OR GL, Operating Room, [facility] Floor [address] [place] [address] Amarilys Jaquez MD [facility] [place] [address] 4 1:38 PM EDT - 4 2:14 PM EDT Surgery OR [facility], Operating Room, [facility] Floor [address] [place] [address] Amarilys Jaquez MD [facility] [employer] [place] [address] ESOPHAGOGASTRODUODENOSCOPY (EGD), FLEXIBLE, TRANSORAL, DIAGNOSTIC 4 11:50 AM EDT Office Visit Family Medicine [address] [place] [phone] Jocelyne Desai[address] [place] [address] 4 2:00 PM EDT Office Visit Nephrology [address] [place] [address] Marycarmen Kowalski PA-C [address] [place] [address] 4 9:00 AM EST Office Visit Gastroenterolo gy [address] [place] [address] Moon Avila, OLEG [address] [place] [address] 5 12:30 PM EST Nurse Only Ancillary [address] [place] [address] [place], Nurse [address] [place] [address] 5 2:30 PM EST Office Visit Family Medicine [address] [place] [phone] Jocelyne Desai[address] [place] [address] Scheduled Procedures Name Priority Associated Diagnoses Date/Ti [...] Additional history exists CKD HGB USE SMARTSET 67443 08/22/202408/22, 08/23/2023, 08/16/2023, Additional history exists CKD PHOS USE SMARTSET 00993 08/22/202408/13, 07/18/2023, 07/03/2023, Additional history exists DTaP,Tdap,and [...] this encounter Medical Devices Implanted Type Area Construction Consultant Device Identifier Shelf Expiration Date Model / Serial / Lot Shaft Fibula 6cm [id number] - [id number] Implanted:Qty: 1 on 09/05/2008 at OR [facility] Tissue - Human N/A: Spine Cervical MUSCULOSKELETAL TRANSPLANT FND 04/20/2010 [id number] / [id number] 0P / Stent Eso Gw 22x70 68851-403 - [id number] Implanted:Qty: 1 on 01/21/2008 at OR [facility] N/A: Esophagus [employer] INC 04/12/2009 93704-899 / / [id number] Depuy Uniplate 32 Implanted:Qty: 1 on 09/05/2008 at OR [facility] N/A: Spine Cervical TAMMY & TAMMY DEPUY 1897-02-302 / / Depuy Uniplate Screw 14mm Implanted:Qty: 2 on 09/05/2008 at OR [facility] N/A: Spine Cervical TAMMY & TAMMY DEPUY 1897-06-017 / / Depuy Lordotic Bengal Cage Implanted:Qty: 1 on 05/07/2010 at OR [facility] N/A: Neck 1773-06-146 / 1773-146 / Plate Zach 3 Level Ti 54mm - [id number] Implanted:Qty: 1 on 05/07/2010 at OR [facility] N/A: Neck JNJ : DEPUY SPINE [id number] 54 / / Screw Zach Const St Ti 14mm - [id number] Implanted:Qty: 4 on 05/07/2010 at OR [facility] N/A: Neck JNJ : DEPUY SPINE 8562369 14 / / Screw 3.5x14 Mntr Fa [id number] - [id number] Implanted:Qty: 8 on 05/07/2010 at OR [facility] N/A: Spine Cervical JNJ : ETHICON CARDIOVATIONS [id number] / / Jarrell [id number] - [id number] Implanted:Qty: 1 on 05/07/2010 at OR [facility] N/A: Spine Cervical JNJ : ETHICON CARDIOVATIONS [id number] / / Screw Inner Mntr [id number] - [id number] Implanted:Qty: 8 on 05/07/2010 at OR [facility] N/A: Spine Cervical JNJ : ETHICON CARDIOVATIONS [id number] / / Envista Intraocular Lens Implanted:Qty: 1 on 03/10/2022 by Liang Marshall MD at OR [facility] Right: Eye BAUSCH & LOMB 08/13/2023 [id number] / [id number] / [id number] Envista Intraocular Lens Implanted:Qty: 1 on 03/24/2022 by Liang Marshall MD at OR [facility] Left: Eye BAUSCH & LOMB 07/13/2024 [id number] / [id number] / [id number] documented as of this encounter Visit Diagnoses Diagnosis Chronic atrial fibrillation (HCC)- Primary Atrial fibrillation Anorexia Weight loss Loss of weight documented in this encounter Advance Directives Documents on File Type Date Recorded Patient Framing Consultant Torres ARREOLA 01/26/2021 [place] OR [facility]-SUSTAINING TREATMENT * [...] Power of Attor andrew? No Care Teams Metalsmith Apprentice Relationship Specialty Start Date End Date Jocelyne Desai DO [address] [place] [address] [place] [phone] PCP - General Internal Medicine 11/09/16 documented as of this encounter
--- OUTSIDE RECORDS SUMMARY | 2023-10-21 16:37 | External Medical Summary | Summary of Care ---
Author Name Unknown Organization [facility] Address [address] [facility] [address] Phone [phone] Care Team Providers Care Ux Designer Name Role Phone Jocelyne Desai Primary Care Provider + [phone] Encounter Details Date Type Department Care Team (Late st Contact Info) Description 09/05/2023 Orders Only Nephrology, Cely Zaldivar 200 [facility] [place] [address] Jennifer Agustin MD [address] [facility] [place] [address] Allergies No known active allergiesdocumented as of this encounter (statuses as of 09/05/2023) Medications Medication Sig Dispensed Refills Start Date [...] as of this encounter (statuses as of 09/05/2023) Active Problems Patient Care Coordination No te Formatting of this note migh t be different from the original. Good connectivity [facility] for wound care [phone] Televideo if needed. 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 He has significant history DM and PVD and recommended he still follow up with podiatry,. Letter in chart from [facility] podiatry they were unable to [...] 11/27/2018 H/O gastric bypass 11/27/2018 Overview: RYGB USP current use of 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 1 Status [...] ICD-10 update of inactive term PLATT RESEARCH OTHER*[id number] 02/20/2007 ADVANCE DIRECTIVE INFORMATION 01/19/2005 Overview: Yes, Patient instructed to provide copy of advance directive for provider to review and to be scanned into Electronic Medical Record No, Advance Directive brochure given to patient at prior appointment. SPINAL STENOSIS-LUMBAR 09/23/2002 Vitamin D deficiency Cervical spinal stenosis documented as of this encounter (statuses as of 09/05/2023) Resolved Problems Problem Noted Date Diagnosed Date Resolved Date Depression, unspecified 11/09/2021/ Depression, unspecified 11/09/202105/2022 Cellulitis of right leg 07/13/202105/2022 Last Assessment & Plan: Suspect this could be early/localized. Will treat with 7 days antibiotic. If pt cannot be reassess by Dr. Braxton office early next week will need [facility] provider recheck Multiple and open [...] 02/27/2003 11/17/19 LUMBAGO 12/24/2002 05/09/2007 LOC PRIM [id number] 12/24/200208/13 DEGENERATIVE SKIN DISORD 12/24/2002 VERTEBRAL FX [...] as of this encounter (statuses as of 09/05/2023) Immunizations Name Administration Dates Next Due COVID-19 [...] Description 4 8:20 AM EDT Laboratory Laboratory, [facility] [address] [place] [phone] [facility] [address] [place] [address] 4 6:15 AM EDT Anticoagulation Centralized Clinical Pharmacy Services, Ilya Lafleur [address] [place] [address] [place] [address] [place] [address] 4 6:30 AM EDT Anticoagulation Centralized Clinical Pharmacy Services, Ilya Lafleur [address] [place] [address] [place] [address] [facility], [address] [place] [address] 4 8:52 AM EDT Hospital Encounter OR GL, Operating Room, [facility] - 4th Floor [address] [place] [address] Amarilys Jaquez MD [address] [place] [address] 4 8:52 AM EDT - 4 9:28 AM EDT Surgery OR [facility], Operating Room, [facility] - 4th Floor [address] [place] [address] Amarilys Jaquez MD [address] [place] [address] ESOPHAGOGASTRODUODENOSCOPY (EGD), FLEXIBLE, TRANSORAL, DIAGNOSTIC 4 11:50 AM EDT Office Visit Family Medicine [address] [place] [phone] Jocelyne Desai[address] [place] [address] 4 2:00 PM EDT Office Visit Nephrology [address] [place] [address] ZemaMarycarmen lindsey PA-C [address] [place] [address] 4 9:00 AM EST Office Visit Gastroenterolo gy [address] [place] [address] Moon Avila CRNP [address] [place] [address] 5 12:30 PM EST Nurse Only Ancillary [address] [place] [address] [place], Nurse [address] [place] [address] 5 2:30 PM EST Office Visit Family Medicine [address] [place] [phone] Jocelyne Desai, [address] [place] [address] Scheduled Procedures Name Priority Associated Diagnoses Date/Ti me ESOPHAGOGASTRODUODENOSCOPY ( EGD), FLEXIBLE, TRANSORAL, DIAGNOSTIC Anorexia Weight loss 09/14/2023 8:52 AM EDT COLONOSCOPY FLEXIBLE PROXIMA L DIAGNOSTIC Recall [...] 08/23/2023, 05/2022, 11/09/2022, Additional history exists GFR 02/28/2024 08/28/2023, 08/13, 08/23/2023, Additional history exists Albumin/Creatinine Ratio 07/17/2024 024, 11/16/2022, 05/13/2022, Additional history exists CKD HGB USE SMARTSET 78630 08/22/202408/22, 08/23/2023, 08/16/2023, Additional history exists CKD PHOS USE SMARTSET 06716 08/22/2024 07, 07/18/2023, 07/03/2023, Additional history exists [...] this encounter Medical Devices Implanted Type Area Supervisor Cutting Department Device Identifier Shelf Expiration Date Model / Serial / Lot Shaft Fibula 6cm [id number] - [id number] Implanted:Qty: 1 on 09/05/2008 at OR [facility] Tissue - Human N/A: Spine Cervical MUSCULOSKELETAL TRANSPLANT FND 04/20/2010 [id number] / [id number] 0P / Stent Eso Gw 22x70 89979-432 - [id number] Implanted:Qty: 1 on 01/21/2008 at OR [facility] N/A: Esophagus ALVEOLUS INC 04/12/2009 30372-612 / / [id number] Depuy Uniplate 32 Implanted:Qty: 1 on 09/05/2008 at OR [facility] N/A: Spine Cervical TAMMY & TAMMY DEPUY 189-302 / / Depuy Uniplate Screw 14mm Implanted:Qty: 2 on 09/05/2008 at OR [facility] N/A: Spine Cervical TAMMY & TAMMY DEPUY 18908-18-017 / / Depuy Lordotic Bengal Cage Implanted:Qty: 1 on 05/07/2010 at OR [facility] N/A: Neck 1773-06-146 / 1773-06-146 / Plate Zach 3 Level Ti 54mm - [id number] Implanted:Qty: 1 on 05/07/2010 at OR [facility] N/A: Neck JNJ : DEPUY SPINE [id number] 54 / / Screw Zach Const St Ti 14mm - [id number] Implanted:Qty: 4 on 05/07/2010 at OR [facility] N/A: Neck JNJ : DEPUY SPINE [id number] 14 / / Screw 3.5x14 Mntr Fa [id number] - [id number] Implanted:Qty: 8 on 05/07/2010 at OR [facility] N/A: Spine Cervical JNJ : ETHICON CARDIOVATIONS [id number] / / Jarrell [id number] - [id number] Implanted:Qty: 1 on 05/07/2010 at OR [facility] N/A: Spine Cervical JNJ : ETHICON CARDIOVATIONS [id number] / / Screw Inner Mntr [id number] - [id number] Implanted:Qty: 8 on 05/07/2010 at OR [facility] N/A: Spine Cervical JNJ : ETHICON CARDIOVATIONS [id number] / / Envista Intraocular Lens Implanted:Qty: 1 on 03/10/2022 by Liang Marshall MD at OR [facility] Right: Eye BAUSCH & LOMB 08/13/2023 [id number] / [id number] / [id number] Envista Intraocular Lens Implanted:Qty: 1 on 03/24/2022 by Liang Marshall MD at OR [facility] Left: Eye BAUSCH & LOMB 07/13/2024 [id number] / [id number] / [id number] documented as of this encounter Procedures Procedure Name Priority Date/Time Associated Diagnosis Comments CHEMISTRY-OUTSIDE Routine 08/28/2023 documented in this encounter Results * (ABNORMAL) CHEMISTRY-OUTSIDE (08/28/2023) Not all results display below - see scan for full detail OUTSIDE LAB (SEE SCANNED REPORT) Comment:SCAN INCLUDES: BMP[ CREATININE-OUTSID E LAB 3.33(A) 0.70 - 1.30 MG/DL OUTSIDE LAB (SEE SCANNED REPORT) EGFR-OUTSIDE LAB 19(A) >=60 ML/MIN/1.7 3M2 OUTSIDE LAB (SEE SCANNED REPORT) POTASSIUM-OUTSIDE LAB 3.3(A) 3.5 - 5.1 MMOL/L OUTSIDE LAB (SEE SCANNED REPORT) GLUCOSE-OUTSIDE LAB 64(A) 70 - 110 MG/DL OUTSIDE LAB (SEE [...] LAB OUTSIDE LAB (SEE SCANNED REPORT) HEMOGLOBIN, [id number] LAB OUTSIDE LAB (SEE SCANNED REPORT) PHOSPHORUS-OUTSID E LAB OUTSIDE LAB (SEE SCANNED REPORT) PTH-OUTSIDE LAB OUTS VAMSI LAB (SEE SCANNED REPORT) MICROALBUMIN RATIO-OUTSIDE LAB OUTSIDE LA B (SEE SCANNED REPORT) PROTEIN, UA-OUTSIDE LAB OUTSIDE LAB (SEE SCANNED REPORT) HGB OUTSIDE LA B (SEE SCANNED REPORT) 08/28/2023 Jennifer Agustin MD LABORATORY OUTSIDE LAB (SEE SCANNED REPORT) documented in this encounter Advance Directives Documents on File Type Date Recorded Patient Poiser Balance Expl anation POLST 01/26/2021 [place] OR [facility] FOR [facility]-SUSTAINING TREATMENT * [...] Power of Attor andrew? No Care Teams Ux Designer Relationship Specialty Start Date End Date Jocelyne Desai DO [address] [place] [address] [place] [address] PCP - General Internal Medicine 11/09/16 documented as of this encounter
--- OUTSIDE RECORDS SUMMARY | 2023-10-21 16:37 | External Medical Summary | Summary of Care ---
Author Name Unknown Organization [facility] Address [address] [facility] [place] [address] Phone [phone] Care Team Providers Care Engravings Polisher Name Role Phone Jocelyne Desai DO Primary Care Provider + [phone] Reason for Referral * Evaluate & Treat - Unlimited Visits (Within 10 days (routine)) - Authorized Specialty Diagnoses / Procedures Referred By Mingo de paz Referred To Contact Gastroenterology Diagnoses Anorexia Pancreatic atrophy Iron deficiency anemia, unspecified iron deficiency anemia type Gallstones Jocelyne Desai DO [address] [place] [address] [place] [address] Referral ID Status Reason Start Date Expiration Date Visits Requested Visits Authorized [id number] Authorized Specialty Services Required 08/28/2023 999 999 Question Answer Referral Priority Within 10 days (routine) Where should this appointment be scheduled? [facility] For what condition is the patient being referred? All Gastro Conditions Comments Anorexia, poor appetite, CT scan with gallstones and pancreatic atrophy. 60# weight loss. * Ancillary Services (Within 3 days (urgent)) - Authorized Specialty Diagnoses / Procedures Referred By Mingo de paz Referred To Contact Gastroenterology Diagnoses Recent unexplained weight loss Anorexia Jocelyne Desai DO [address] [place] [address] [place] [address] Referral ID Status Reason Start Date Expiration Date Visits Requested Visits Authorized [id number] Authorized Ancillary Services Required 08/28/2023 999 999 Question Answer Referral Priority Within 3 days (urgent) Where should this appointment be scheduled? [facility] Comments Upper Endoscopy ASGE Guidelines Anorexia and weight loss ADDITIONAL INFORMATION 1. Is the patient on Coumadin? No 2. Is the patient on Pradaxa? No * Precert (Within 10 days (routine)) - Pending Review Specialty Diagnoses / Procedures Referred By Contzahida t Referred To Contact Radiology Diagnoses Recent unexplained weight loss Procedures CT CHEST WO CONTRAST Jocelyne Desai[address] [place] [address] Referral ID Status Reason Start Date Expiration Date V isits Requested Visits Authorized [id number] Pending Review 08/28/2023 999 999 Reason for Visit * Reason Onset Date Comments Appointment 08/28/2023 Encounter Details Date Type Department Care Team ([facility] st Contact Info) Description 08/28/2023 Telephone Family Medicine [address] [place] [address] Jocelyne Desai [address] [place] [address] Appointment Allergies No known active allergiesdocumented as [...] Tablet before bedtime. 200 Tablet 3 07/25/2023 Discontinued documented as of this encounter (statuses as of 09/06/2023) Active Problems Patient Care Coordination No te Formatting of this note migh t be different from the original. Good connectivity [facility] for wound care [phone] Televideo if needed. Problem Noted Date Diagnosed [...] Letter in chart from [facility] podiatry they were unable to get [...] ICD-10 update of inactive term PLATT RESEARCH OTHER*[id number] 02/20/2007 ADVANCE DIRECTIVE INFORMATION 01/19/2005 Overview: Yes, [...] [facility] office early next week will need [facility] provider recheck Multiple and open wound of [...] 11/17/19 23 LUMBAGO 12/24/2002 05/09/2007 LOC PRIM [id number] 12/24/200208/13 DEGENERATIVE SKIN DISORD 12/24/2002 VERTEBRAL FX [...] No 02/16/2023 Does the household have a [facility] source [facility] income? (Household - [...] encounter Miscellaneous Notes * Telephone Encounter - Amanda Hayden OSA - 08/29/2023 12:35 PM EDT Appts scheduled, pt aware. * Telephone Encounter - Jocelyne Desai DO - 08/28/2023 2:52 PM EDT MyG sent to patient with results. Pt needs CT chest scheduled. EGD ordered. Referral made to GI. Please schedule. documented in this encounter Plan of Treatment Upcoming Encounters Date Type Department Care Team (Latest Contact Info) Description 4 8:20 AM EDT Laboratory [facility] [address] [facility] [place] [phone] Presley Klein [address] [place] [address] 4 6:15 AM EDT Anticoagulation Centralized Clinical Pharmacy Services, [address] [place] [address] [facility], [address] [place] [address] 4 6:30 AM EDT Anticoagulation Centralized Clinical Pharmacy Services, [address] [place] [address] [facility], [address] [place] [address] 4 8:52 AM EDT Hospital Encounter OR GL, Operating Room, [place] - 4th Floor [address] [place] [address] Amarilys Jaquez MD [address] [place] [address] 4 8:52 AM EDT - 4 9:28 AM EDT Surgery OR GL, Operating Room, [place] - 4th Floor [address] [place] [address] Amarilys Jaquez MD [address] [place] [address] ESOPHAGOGASTRODUODENOSCOPY (EGD), FLEXIBLE, TRANSORAL, DIAGNOSTIC 4 11:50 AM EDT Office Visit [address] [phone] [place] [address] 4 2:00 PM EDT Office Visit Nephrology [address] [place] [address] ZeMarycarmen alan PA-C [address] [place] [address] 4 9:00 AM EST Office Visit Gastroenterolo gy [address] [place] [address] Moon Avila CRNP [address] [place] [address] 5 12:30 PM EST Nurse Only Ancillary [address] [place] [address] [place], Nurse [address] [place] [address] 5 2:30 PM EST Office Visit Family Medicine [address] [place] [phone] Jocelyne Desai[address] [place] [address] Scheduled Procedures Name Priority Associated Diagnoses Date/Ti me ESOPHAGOGASTRODUODENOSCOPY ( EGD), FLEXIBLE, TRANSORAL, DIAGNOSTIC Anorexia Weight loss 09/14/2023 8:52 AM EDT COLONOSCOPY FLEXIBLE PROXIMA L DIAGNOSTIC Recall Screening for colon cancer Scheduled Referrals Name Type Priority Associated Diagnoses Order Schedule UPPER ENDOSCOPY GI REFERRAL OP Referral Within 3 days (urgent) Recent unexplained weight loss Anorexia Ordered: 08/28/2023 ADULT GASTROENTEROLOGY REFERRAL OP Referral Within 10 days (routine) Anorexia Pancreatic atrophy Iron deficiency anemia, unspecified iron deficiency anemia type Gallstones Ordered: 08/28/2023 Health Maintenance Due Date Last Done Comments [...] 10/0 05/2022, 11/09/2022, Additional history exists GFR 03/06/2024 09/04/2023, 08/13, 08/28/2023, Additional history exists Albumin/Creatinine Ratio 07/17/2024 024, 11/16/2022, 05/13/2022, Additional history exists CKD HGB USE SMARTSET 30558 08/22/202408/22, 08/23/2023, 08/16/2023, Additional history exists CKD PHOS USE SMARTSET 17860 08/22/202408/13, 07/18/2023, 07/03/2023, Additional history exists DTaP,Tdap,and [...] this encounter Medical Devices Implanted Type Area Business Test Analyst Device Identifier Shelf Expiration Date Model / Serial / Lot Shaft Fibula 6cm [id number] - [id number] Implanted:Qty: 1 on 09/05/[place] [facility] [place] - Human N/A: Spine Cervical MUSCULOSKELETAL TRANSPLANT FND 04/20/2010 [id number] / [id number] / Stent Eso Gw 22x70 [id number] - [id number] Implanted:Qty: 1 on 01/21/2008 [place] [facility] [place] N/A: Esophagus [employer] 04/12/2009 [id number] / / [id number] Depuy Uniplate 32 Implanted:Qty: 1 on 09/05/2008 [...] [facility] [place]: Neck 1773-06-146 / 1773-06-146 / Plate Zach 3 Level Ti 54mm - [id number] Implanted:Qty: 1 on 05/07/2010 [place] [facility] [place] N/A: Neck JNJ : DEPUY SPINE [id number] / / Screw Zach Const St Ti 14mm - [id number] Implanted:Qty: 4 on 05/07/2010 [place] [facility] [place] N/A: Neck JNJ : DEPUY SPINE [id number] 14 / / Screw 3.5x14 Mntr Fa [id number] - [id number] Implanted:Qty: 8 on 05/07/2010 [place] [facility] [place] N/A: Spine Cervical JNJ : ETHICON CARDIOVATIONS [id number] / / Jarrell [id number] - [id number] Implanted:Qty: 1 on 05/07/2010 [place] [facility] [place] N/A: Spine Cervical JNJ : ETHICON CARDIOVATIONS [id number] / / Screw Inner Mntr [id number] - [id number] Implanted:Qty: 8 on 05/07/2010 [place] [facility] [place] N/A: Spine Cervical JNJ : ETHICON CARDIOVATIONS [id number] / / Envista Intraocular Lens Implanted:Qty: 1 on 03/10/2022 by Liang Marshall MD at OR [facility] Right: Eye BAUSCH & LOMB 08/13/2023 [id number] / [id number] / [id number] Envista Intraocular Lens Implanted:Qty: 1 on 03/24/2022 by Liang Marshall MD at OR [facility] Left: Eye BAUSCH & LOMB 07/13/2024 [id number] / [id number] / [id number] documented as of this encounter Procedures Procedure Name Priority Date/Time Associated Diagnosis Comments CT CHEST WO CONTRAST Routine 08/31/2023 8:27 AM EDT Recent unexplained weight loss documented in this encounter Results * CT CHEST WO CONTRAST (08/31/2023 8:27 AM EDT) Anatomical Region Laterality Modality Chest, Body, Cardio Computed Wali ography 09/01/2023 7:00 PM EDT Impressions 09/01/2023 6:57 PM EDT IMPRESSION 1. An irregular 6 mm nodule in the left upper lobe. Follow-up CT recommended in 6 months for reassessment. (In compliance with Act 112, the [facility] was contacted to invoke system generated communication of the patient's results.) Narrative 09/01/2023 6:57 PM EDT EXAM EXAM: CT CHEST WO CONTRAST DATE and TIME: 08/31/2023 8:27 am HISTORY CLINICAL INFORMATION: r/o Lung cancer; Potential contraindications to iodinated contrast TECHNIQUE Oral Contrast: Oral contrast was not administered. IV Contrast: No IV contrast used COMPARISON 05/25/2018 x-ray. FINDINGS MEDIASTINUM AND MARIEL: Unremarkable HEART: Cardiomegaly. There is no pericardial effusion. LARGE AIRWAYS: Unremarkable LUNGS: Bronchial wall thickening suggesting chronic inflammation. A few calcific granulomata. A few tiny noncalcific nodules are probably noncalcified granulomata. There is an irregular 6 mm nodule in the left upper lobe on image 104 of series 8. A tiny 4 mm nodule in the left lower lobe on image 158 of series 8. PLEURA: There are no pleural effusions. CHEST WALL/SOFT TISSUES: There is no axillary lymphadenopathy. LINES AND DEVICES: Left subclavian pacer. BONES: Degenerative osseous changes. C-spine hardware. VESSELS: Atherosclerotic changes. Marked coronary calcification. UPPER ABDOMEN: Cholelithiasis. Gastric bypass. Small hiatal hernia. Procedure Note Mode Vincent MD - 09/01/2023 EXAM EXAM: CT CHEST WO CONTRAST DATE and TIME: 08/31/2023 8:27 am HISTORY CLINICAL INFORMATION: r/o Lung cancer; Potential contraindications toiodinated contrast TECHNIQUE Oral Contrast: Oral contrast was not administered. IV Contrast: No IV contrast used COMPARISON 05/25/2018 x-ray. FINDINGS MEDIASTINUM AND MARIEL: Unremarkable HEART: Cardiomegaly. There is no pericardial effusion. LARGE AIRWAYS: Unremarkable LUNGS: Bronchial wall thickening suggesting chronic inflammation. A fewcalcific granulomata. A few tiny noncalcific nodules are probablynoncalcified granulomata. There is an irregular 6 mm nodule in the leftupper lobe on image 104 of series 8. A tiny 4 mm nodule in the left lowerlobe on image 158 of series 8. PLEURA: There are no pleural effusions. CHEST WALL/SOFT TISSUES: There is no axillary lymphadenopathy. LINES AND DEVICES: Left subclavian pacer. BONES: Degenerative osseous changes. C-spine hardware. VESSELS: Atherosclerotic changes. Marked coronary calcification. UPPER ABDOMEN: Cholelithiasis. Gastric bypass. Small hiatal hernia. IMPRESSION IMPRESSION 1. An irregular 6 mm nodule in the left upper lobe. Follow-up CTrecommended in 6 months for reassessment. (In compliance with Act 112, the [facility] was contacted to invoke systemgenerated communication of the patient's results.) Jocelyne Desai DO RAD CT documented in this encounter Visit Diagnoses Diagnosis Recent unexplained weight loss- Primary Anorexia Pancreatic atrophy Other specified disease of pancreas Iron deficiency anemia, unspecified iron deficiency anemia type Gallstones Calculus of gallbladder without mention of cholecystitis or obstruction Anorexia Weight loss Loss of weight documented in this encounter Advance Directives Documents on File Type Date Recorded Patient Respiratory Therapy Director Expl anation POLST 01/26/2021 [place] [facility] FOR LIFE-SUSTAINING TREATMENT * [...] Power of Attor andrew? No Care Teams Engravings Polisher Relationship Specialty Start Date End Date Jocelyne Desai DO [address] [place] [address] [place] [address] PCP - General Internal Medicine 11/09/16 documented as of this encounter
--- OUTSIDE RECORDS SUMMARY | 2023-10-21 16:37 | External Medical Summary | Summary of Care ---
Author Name Unknown Organization [facility] Address [address] [place] [address] Phone [phone] Care Team Providers Care Card Cutter Helper Name Role Phone Silvia Armas DO Primary Care Provider + [phone] Reason for Referral * Evaluate & Treat - Unlimited Visits (Within 10 days (routine)) - Authorized Specialty Diagnoses / Procedures Referred By Mingo de paz Referred To Contact Pulmonary Diseases / Pulmonary Diagnoses Lung nodule Silvia Armas DO [address] [place] [address] [place] [address] Referral ID Status Reason Start Date Expiration Date Visits Requested Visits Authorized [id number] Authorized Specialty Services Required 09/04/2023 999 999 Question Answer Referral Priority Within 10 Days (Routine) Primary Reason for Referral? Lung Nodule/Mass Reason for Visit * Reason Onset Date Comments Test Results 09/01/2023 Unexpected or In determinate Result Encounter Details Date Type Department Care Team (Late st Contact Info) Description 09/01/2023 Telephone Laboratory, [place] [address] [place] [address] Silvia Armas DO [address] [place] [address] [place] [address] Test Results (Unexpected or Indeterminate ... Allergies No known active allergiesdocumented as of this encounter (statuses as of 09/04/2023) Medications Medication Sig Dispensed Refills Start Date [...] as of this encounter (statuses as of 09/04/2023) Active Problems Patient Care Coordination No te Formatting of this note migh t be different from the original. Good connectivity [facility] for wound care [phone] Televideo if needed. Problem Noted Date Diagnosed [...] ICD-10 update of inactive term PLATT RESEARCH OTHER*[id number] 02/20/2007 ADVANCE DIRECTIVE INFORMATION 01/19/2005 Overview: Yes, Patient instructed to provide copy of advance directive for provider to review and to be scanned into Electronic Medical Record No, Advance Directive brochure given to patient at prior appointment. SPINAL STENOSIS-LUMBAR 09/23/2002 Vitamin D deficiency Cervical spinal stenosis documented as of this encounter (statuses as of 09/04/2023) Resolved Problems Problem Noted Date Diagnosed Date Resolved Date Depression, unspecified 11/09/2021 03/2 Depression, unspecified 11/09/202105/2022 Cellulitis of right leg 07/13/202105/2022 Last Assessment & Plan: Suspect this could be early/localized. Will treat with 7 days antibiotic. If pt cannot be reassess by Dr. Braxton office early next week will need [facility] provider recheck Multiple and open [...] 11/17/19 23 LUMBAGO 12/24/2002 05/09/2007 LOC PRIM [id number] 12/24/200208/13 DEGENERATIVE SKIN DISORD 12/24/2002 VERTEBRAL FX [...] as of this encounter (statuses as of 09/04/2023) Immunizations Name Administration Dates Next Due COVID-19 mRNA, LNP-s, No Pre serve, 2-Dose Series (Moderna) 03/19/2020 COVID-19 mRNA, LNP-s, No Pre serve, 2-Dose Series (POSLavu) 02/16/2021,04/09/2020,03/19/2020 COVID-19, MRNA-LNP, 23-24, P F, 30 MCG/0.3 mL, 12 YRS AND ABOVE, IM ([facility] 11/16/2022 Covid-19, Mrna, Lnp-s, Pf, [...] No 02/16/2023 Does the household have a [facility] source of income? (Household - for ages [...] encounter Miscellaneous Notes * Addendum Note - Silvia Armas, - 09/04/2023 7:48 PM EDTAddended by: SILVIA [...] an unexpected or indeterminate finding on Lg Garciakey ([id number]) andasks that you review the following report. Study Type:CT CHEST WO CONTRAST Date of Study: 08/31/2023 IMPRESSION 1. An irregular 6 mm nodule in the left upper lobe. Follow-up CT recommended in 6 months for reassessment. Please respond to this encounter to acknowledge receipt of this message and take responsibility to ensure this report is reviewed. Thank you, MINERVA Ramirez Client Service [facility] [place] documented in this encounter Plan of Treatment Upcoming Encounters Date Type Department Care Team (Latest Contact Info) Description 8:20 AM EDT Laboratory Laboratory, [address] [place] [address] Presley Klein [place] [facility] [place] [address] 4 6:15 AM EDT Anticoagulation Centralized Clinical Pharmacy Services, [address] [place] [address] [place] [address] 4 6:30 AM EDT Anticoagulation Centralized Clinical Pharmacy Services, [address] [place] [address] [place] [address] 4 8:52 AM EDT Hospital Encounter OR GL, Operating Room, [facility] - 4th Floor [address] [place] [address] Amarilys Jaquez MD [facility] [employer] [place] [address] 4 8:52 AM EDT - 4 9:28 AM EDT Surgery OR [facility], Operating Room, [facility] - 4th Floor [address] [place] [address] Amarilys Jaquez MD [facility] [employer] [place] [address] ESOPHAGOGASTRODUODENOSCOPY (EGD), FLEXIBLE, TRANSORAL, DIAGNOSTIC 4 11:50 AM EDT Office Visit Family Medicine [address] [place] [phone] Silvia [address] [place] [address] 4 2:00 PM EDT Office Visit Nephrology [address] [place] [address] ZemaMarycarmen lindsey PA-C [address] [place] [address] 4 9:00 AM EST Office Visit Gastroenterolo gy [address] [place] [address] Moon Avila, OLEG [address] [place] [address] 5 12:30 PM EST Nurse Only Ancillary [address] [place] [address] [place], Nurse [address] [place] [address] 5 2:30 PM EST Office Visit Family Medicine [address] [place] [phone] [place] Armas, [address] [place] [address] Scheduled Procedures Name Priority Associated Diagnoses Date/Ti [...] Additional history exists GFR 02/28/2024 08/28/2023, 08/13, 07/31/2023, Additional history exists Albumin/Creatinine Ratio 07/17/2024 024, 11/16/2022, 05/13/2022, Additional history exists CKD HGB USE SMARTSET 28957 08/22/202408/22, 08/23/2023, 08/16/2023, Additional history exists CKD PHOS USE SMARTSET 04312 08/22/202408/13, 07/18/2023, 07/03/2023, Additional history exists DTaP,Tdap,and [...] this encounter Medical Devices Implanted Type Area Knee Bolter Device Identifier Shelf Expiration Date Model / Serial / Lot Shaft Fibula 6cm [id number] - [id number] Implanted:Qty: 1 on 09/05/2008 at [place] [facility] [place] Tissue - Human N/A: Spine Cervical MUSCULOSKELETAL TRANSPLANT FND 04/20/2010 [id number] / [id number] / Stent Eso Gw 22x70 [id number] - [id number] Implanted:Qty: 1 on 01/21/2008 at [place] [facility] [place] N/A: Esophagus [employer] 04/12/2009 35453-855 / / [id number] Depuy Uniplate 32 Implanted:Qty: 1 on 09/05/2008 at [place] [facility] [place] N/A: Spine Cervical TAMMY & TAMMY DEPUY 302 / / Depuy Uniplate Screw 14mm Implanted:Qty: 2 on 09/05/2008 at [place] [facility] [place] N/A: Spine Cervical TAMMY & TAMMY DEPUY 017 / / Depuy Lordotic Bengal Cage Implanted:Qty: 1 on 05/07/2010 at [place] [facility] [place] N/A: Neck 1773-06-146 / 1773--146 / Plate Zach 3 Level Ti 54mm - [id number] Implanted:Qty: 1 on 05/07/2010 at [place] [facility] [place] N/A: Neck JNJ : DEPUY SPINE [id number] 54 / / Screw Zach Const St Ti 14mm - [id number] Implanted:Qty: 4 on 05/07/2010 at [place] [facility] [place] N/A: Neck JNJ : DEPUY SPINE [id number] 14 / / Screw 3.5x14 Mntr Fa [id number] - [id number] Implanted:Qty: 8 on 05/07/2010 at [place] [facility] [place] N/A: Spine Cervical JNJ : ETHICON CARDIOVATIONS [id number] / / Jarrell [id number] - [id number] Implanted:Qty: 1 on 05/07/2010 at [place] [facility] [place] N/A: Spine Cervical JNJ : ETHICON CARDIOVATIONS [id number] / / Screw Inner Mntr [id number] - [id number] Implanted:Qty: 8 on 05/07/2010 at [place] [facility] [place] N/A: Spine Cervical JNJ : ETHICON CARDIOVATIONS [id number] / / Envista Intraocular Lens Implanted:Qty: 1 on 03/10/2022 by Liang Marshall MD at [facility] Right: Eye BAUSCH & LOMB 08/13/2023 [id number] / [id number] / [id number] Envista Intraocular Lens Implanted:Qty: 1 on 03/24/2022 by Liang Marshall MD at OR [facility] Left: Eye BAUSCH & LOMB 07/13/2024 [id number] / [id number] / [id number] documented as of this encounter Visit Diagnoses Diagnosis Lung nodule- Primary Solitary pulmonary nodule Anorexia Weight loss Loss of weight documented in this encounter Advance Directives Documents on File Type Date Recorded Patient 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 No Care Teams Card Cutter Helper Relationship Specialty Start Date End Date Silvia Armas DO [address] [place] [address] [place] [phone] PCP - General Internal Medicine 11/09/16 documented as of this encounter
--- OUTSIDE RECORDS SUMMARY | 2023-10-21 16:37 | External Medical Summary | Summary of Care ---
Author Name Unknown Organization [facility] Address [address] [facility] [place] [address] Phone [phone] Care Team Providers Care Legal Records Clerk Name Role Phone Desai Jocelyne Briggs DO Primary Care Provider + [phone] Reason for Visit * Reason Comments Dosage Adjustment Via Phone (anticoag Cl inic) Encounter Details Date Type Department Care Team (Late st Contact Info) Description 08/31/2023 6:00 PM EDT Anticoagulation Centralized Clinical Pharmacy Services, Ilya Lafleur [address] [place] [address] [place] [address] [facility], [address] [place] [address] Chronic atrial fibrillation (HCC)* Allergies No known [...] be different from the original. Good connectivity [facility] for wound care [phone] Televideo if needed. Problem Noted Date Diagnosed [...] ICD-10 update of inactive term PLATT RESEARCH OTHER*[id number] 02/20/2007 ADVANCE DIRECTIVE INFORMATION 01/19/2005 Overview: Yes, [...] 11/17/19 23 LUMBAGO 12/24/2002 05/09/2007 LOC PRIM [id number]-[id number] 12/24/200208/13 DEGENERATIVE SKIN DISORD 12/24/2002 VERTEBRAL FX [...] No 02/16/2023 Does the household have a [facility] source of income? (Household - for [...] this encounter Progress Notes * Korin Meléndez, certified mortician - 08/31/2023 11:37 AM EDT Contacts Type Contact Phone/Fax 08/31/2023 11:32 AM EDT Phone (Outgoing) Lg Cooley "Akshat" (Self) [phone] (H) Spoke to Patient Subjective Patient Findings [...] days Next INR check: 09/07/2023 Confirm if [facility] nurses will draw going forward or if pt will go to lab. Today's INR drawnin lab. Repeat PT/INR in 1 week(s) Weekly dose: not changed Additional Dosing Information: Description [facility] Nurses -- Mondays and Fridays ; fax - [phone] (prev [facility]) Tech to contact patient with dose instructions as noted. Estefania Palacios RPh 08/31/2023, 11:19 AM Electronically signed by Estefania Palacios [facility]ly [facility] at 08/31/2023 11:38 AM EDT documented in this encounter Plan of Treatment Upcoming Encounters Date Type Department Care Team (Latest Contact Info) Description 8:20 AM EDT Laboratory [facility], [facility] [address] [facility] [place] [phone] Presley Klein [address] [facility] [place] [address] 4 6:15 AM EDT Anticoagulation Centralized Clinical Pharmacy Services, [address] [place] [address] [place] [address] 4 6:30 AM EDT Anticoagulation Centralized Clinical Pharmacy Services, [address] [place] [address] [place] [address] 4 1:38 PM EDT Hospital Encounter OR GL, Operating Room, [facility] Floor [address] [place] [address] Amarilys Jaquez MD [facility] [email or web address] [facility] [place] [address] 4 1:38 PM EDT - 4 2:14 PM EDT Surgery OR [facility], Operating Room, [facility] Floor [address] [place] [address] Amarilys Jaquez MD [facility] [email or web address] [place] [address] ESOPHAGOGASTRODUODENOSCOPY (EGD), FLEXIBLE, TRANSORAL, DIAGNOSTIC 4 11:50 AM EDT Office Visit Family Medicine [address] [place] [phone] Jocelyne Desai[address] [place] [address] 4 2:00 PM EDT Office Visit Nephrology [address] [place] [address] Marycarmen Kowalski PA-C [address] [place] [address] 4 9:00 AM EST Office Visit Gastroenterolo gy [address] [place] [address] Moon Avila, OLEG [address] [place] [address] 5 12:30 PM EST Nurse Only Ancillary [address] [place] [address] [place], Nurse [address] [place] [address] 5 2:30 PM EST Office Visit Family Medicine [address] [place] [phone] Jocelyne Desai[address] [place] [address] Scheduled Procedures Name Priority Associated Diagnoses Date/Ti [...] Additional history exists CKD HGB USE SMARTSET 99212 08/22/202408/22, 08/23/2023, 08/16/2023, Additional history exists CKD PHOS USE SMARTSET 13463 08/22/202408/13, 07/18/2023, 07/03/2023, Additional history exists DTaP,Tdap,and [...] this encounter Medical Devices Implanted Type Area Tightening Machine Operator Device Identifier Shelf Expiration Date Model / Serial / Lot Shaft Fibula 6cm [id number] - [id number] Implanted:Qty: 1 on 09/05/2008 at [place] [facility] Tissue - Human N/A: Spine Cervical MUSCULOSKELETAL TRANSPLANT FND 04/20/2010 [id number] / [id number] 0P / Stent Eso Gw 22x70 [id number] - [id number] Implanted:Qty: 1 on 01/21/2008 at OR [facility] N/A: Esophagus [employer]US INC 04/12/2009 60025-153 / / [id number] Depuy Uniplate 32 Implanted:Qty: 1 on 09/05/2008 at OR [facility] N/A: Spine Cervical TAMMY [employer] TAMMY DEPUY 1897-02-302 / / Depuy Uniplate Screw 14mm Implanted:Qty: 2 on 09/05/2008 at OR [facility] N/A: Spine Cervical ATMMY & TAMMY DEPUY 1897-06-017 / / Depuy Lordotic Bengal Cage Implanted:Qty: 1 on 05/07/2010 at OR [facility] N/A: Neck 1773-06-146 / 1773-146 / Plate Zach 3 Level Ti 54mm - [id number] Implanted:Qty: 1 on 05/07/2010 at OR [facility] N/A: Neck JNJ : DEPUY SPINE [id number] / / Screw Zach Const St Ti 14mm - [id number] Implanted:Qty: 4 on 05/07/2010 at OR [facility] N/A: Neck JNJ : DEPUY SPINE [id number] / / Screw 3.5x14 Mntr Fa [id number] - [id number] Implanted:Qty: 8 on 05/07/2010 at OR [facility] N/A: Spine Cervical JNJ : ETHICON CARDIOVATIONS [id number] / / Jarrell [id number] - [id number] Implanted:Qty: 1 on 05/07/2010 at OR [facility] N/A: Spine Cervical JNJ : ETHICON CARDIOVATIONS [id number] / / Screw Inner Mntr [id number] - [id number] Implanted:Qty: 8 on 05/07/2010 at OR [facility] N/A: Spine Cervical JNJ : ETHICON CARDIOVATIONS [id number] / / Envista Intraocular Lens Implanted:Qty: 1 on 03/10/2022 by Liang Marshall MD at OR [facility] Right: Eye BAUSCH & LOMB 08/13/2023 [id number] / [id number] / [id number] Envista Intraocular Lens Implanted:Qty: 1 on 03/24/2022 by Liang Marshall MD at OR [facility] Left: Eye BAUSCH & LOMB 07/13/2024 [id number] / [id number] / [id number] documented as of this encounter Visit Diagnoses Diagnosis Chronic atrial fibrillation (HCC)- Primary Atrial fibrillation Anorexia Weight loss Loss of weight documented in this encounter Advance Directives Documents on File Type Date Recorded Patient Component Inspector Torres ARREOLA 01/26/2021 [place] OR [facility]SU[facility]AIN[facility]ATMENT * No [...] Power of Attor andrew? No Care Teams Legal Records Clerk Relationship Specialty Start Date End Date Jocelyne Desai DO [address] [place] [address] [place] [phone] PCP - General Internal Medicine 11/09/16 documented as of this encounter
--- OUTSIDE RECORDS SUMMARY | 2023-10-21 16:37 | External Medical Summary | Summary of Care ---
Author Name Unknown Organization [facility] Address [address] [facility] [place] [address] Phone [phone] Care Team Providers Care Sales And Merchandising Representative Name Role Phone Jocelyne Desai DO Primary Care Provider [phone] Encounter Details Date Type Department Care Team (Late st Contact Info) Description 09/05/2023 Orders Only Family Medicine [address] [place] [phone] Jocelyne Desai DO [address] [place] [address] [place] [address] Allergies No known active allergiesdocumented as of [...] be different from the original. Good connectivity [facility] for wound care [phone] Televideo if needed. 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 He has significant history DM and PVD and recommended he still follow up with podiatry,. Letter in chart from [facility] podiatry they were unable to [...] ICD-10 update of inactive term PLATT RESEARCH OTHER*[id number] 02/20/2007 ADVANCE DIRECTIVE INFORMATION 01/19/2005 Overview: Yes, [...] early next week will need [facility] provider recheck Multiple and open [...] 02/27/2003 11/17/19 LUMBAGO 12/24/2002 05/09/2007 LOC PRIM [id number]-W-MHN 12/24/200208/13 DEGENERATIVE SKIN DISORD 12/24/2002 VERTEBRAL FX [...] MCG/0.3 mL, 12 YRS AND ABOVE, IM (Zenbox-Comirnaty) 11/16/2022 Covid-19, Mrna, Lnp-s, Pf, B ivalent, [...] Description 4 8:20 AM EDT Laboratory Laboratory, [facility] 132 [place] [phone] [facility] 132 [place] [address] 4 6:15 AM EDT Anticoagulation Centralized Clinical Pharmacy Services, Ilya Lafleur [address] [place] [address] [place] [address] [place] [address] 4 6:30 AM EDT Anticoagulation Centralized Clinical Pharmacy Services, Ilya Lafleur [address] [place] [address] [place] [address] [facility], [address] [place] [address] 4 8:52 AM EDT Hospital Encounter OR [facility], Operating Room, [facility] - 4th Floor [address] [place] [address] Amarilys Jaquez MD [address] [place] [address] 4 8:52 AM EDT - 4 9:28 AM EDT Surgery OR [facility], Operating Room, [facility] - 4th Floor [address] [place] [address] Amarilys Jaquez MD [address] [place] [address] ESOPHAGOGASTRODUODENOSCOPY (EGD), FLEXIBLE, TRANSORAL, DIAGNOSTIC 4 11:50 AM EDT Office Visit Family Medicine [address] [place] [phone] Jocelyne Desai[address] [place] [address] 4 2:00 PM EDT Office Visit Nephrology [address] [place] [address] ZemaMarycarmen lindsey PA-C [address] [place] [address] 4 9:00 AM EST Office Visit Gastroenterolo gy [address] [place] [address] Moon Avila CRNP [address] [place] [address] 5 12:30 PM EST Nurse Only Ancillary [address] [place] [address] [place], Nurse [address] [place] [address] 5 2:30 PM EST Office Visit Family Medicine [address] [place] [phone] Jocelyne Desai, [address] [place] [address] Scheduled Procedures Name Priority Associated Diagnoses Date/Ti [...] 08/23/2023, 1005/2022, 11/09/2022, Additional history exists GFR 02/28/2024 09/04/2023, 08/13, 08/28/2023, Additional history exists Albumin/Creatinine Ratio 07/17/2024 024, 11/16/2022, 05/13/2022, Additional history exists CKD HGB USE SMARTSET 27176 08/22/202408/22, 08/23/2023, 08/16/2023, Additional history exists CKD PHOS USE SMARTSET 73823 08/22/2024 07, 07/18/2023, 07/03/2023, Additional history exists [...] this encounter Medical Devices Implanted Type Area Enrollment Processor Device Identifier Shelf Expiration Date Model / Serial / Lot Shaft Fibula 6cm [id number] - [id number] Implanted:Qty: 1 on 09/05/2008 at OR [facility] [place] Tissue - Human N/A: Spine Cervical MUSCULOSKELETAL TRANSPLANT FND 04/20/2010 [id number] / [id number] 0P / Stent Eso Gw 22x70 11475-109 - [id number] Implanted:Qty: 1 on 01/21/2008 at OR [facility] [place] N/A: Esophagus [employer]US INC 04/12/2009 28058-621 / / [id number] Depuy Uniplate 32 Implanted:Qty: 1 on 09/05/2008 [...] Plate Zach 3 Level Ti 54mm - [id number] Implanted:Qty: 1 on 05/07/2010 at OR [facility] [place] N/A: Neck JNJ : DEPUY SPINE [id number] / / Screw Zach Const St Ti 14mm - [id number] Implanted:Qty: 4 on 05/07/2010 at OR [facility] [place] N/A: Neck JNJ : DEPUY SPINE [id number] 14 / / Screw 3.5x14 Mntr Fa [id number] - [id number] Implanted:Qty: 8 on 05/07/2010 at OR [facility] [place] N/A: Spine Cervical JNJ : ETHICON CARDIOVATIONS [id number] / / Jarrell [id number] - [id number] Implanted:Qty: 1 on 05/07/2010 at OR [facility] [place] N/A: Spine Cervical JNJ : ETHICON CARDIOVATIONS [id number] / / Screw Inner Mntr [id number] - [id number] Implanted:Qty: 8 on 05/07/2010 at OR [facility] [place] N/A: Spine Cervical JNJ : ETHICON CARDIOVATIONS [id number] / / Envista Intraocular Lens Implanted:Qty: 1 on 03/10/2022 by Liang Marshall MD at OR [facility] Right: Eye BAUSCH & LOMB 08/13/2023 [id number] / [id number] / [id number] Envista Intraocular Lens Implanted:Qty: 1 on 03/24/2022 by Liang Marshall MD at OR [facility] Left: Eye BAUSCH & LOMB 07/13/2024 [id number] / [id number] / [id number] documented as of this encounter Procedures Procedure Name Priority Date/Time Associated Diagnosis Comments CHEMISTRY-OUTSIDE Routine 09/04/2023 documented in this encounter Results * (ABNORMAL) CHEMISTRY-OUTSIDE (09/04/2023) Not all results display below - see scan for full detail OUTSIDE LAB (SEE SCANNED REPORT) Comment:SCAN INCLUDES - BMP CREATININE-OUTSID E LAB 3.26(A) 0.70 - 1.30 MG/DL OUTSIDE LAB (SEE SCANNED REPORT) EGFR-OUTSIDE LAB 19(L) >=60 ML/MIN OUTSIDE LAB (SEE SCANNED REPORT) POTASSIUM-OUTSIDE LAB 4.7 3.5 - 5.1 MMOL/L OUTSIDE LAB (SEE SCANNED REPORT) GLUCOSE-OUTSIDE LAB 94 70 - 110 MG/DL OUTSIDE LAB (SEE [...] LAB OUTSIDE LAB (SEE SCANNED REPORT) HEMOGLOBIN, Z2R-APNWLIP LAB OUTSIDE LAB (SEE SCANNED REPORT) PHOSPHORUS-OUTSID E LAB OUTSIDE LAB (SEE SCANNED REPORT) PTH-OUTSIDE LAB OUTS VAMSI LAB (SEE SCANNED REPORT) MICROALBUMIN RATIO-OUTSIDE LAB OUTSIDE LA B (SEE SCANNED REPORT) PROTEIN, UA-OUTSIDE LAB OUTSIDE LAB (SEE SCANNED REPORT) HGB OUTSIDE LA B (SEE SCANNED REPORT) 09/04/2023 Jennifer Agustin MD LABORATORY OUTSIDE LAB (SEE SCANNED REPORT) documented in this encounter Advance Directives Documents on File Type Date Recorded Patient Freight Separator Expl anation POLST 01/26/2021 [place] OR [facility] FOR LIFE-SUSTAINING [...] Power of Attor andrew? No Care Teams Sales And Merchandising Representative Relationship Specialty Start Date End Date Jocelyne Desai DO [address] [place] [address] [place] [address] PCP - General Internal Medicine 11/09/16 documented as of this encounter
--- OUTSIDE RECORDS SUMMARY | 2023-10-21 16:37 | External Medical Summary | Summary of Care ---
Author Name Unknown Organization [facility] Address [address] [place] [address] Phone [phone] Care Team Providers Care Enterprise Solutions Architect Name Role Phone Jocelyne Desai DO Primary Care Provider Reason for Visit * Reason Onset Date Comments Test Results 09/01/2023 Unexpected or In determinate Result Encounter Details Date Type Department Care Team (Late st Contact Info) Description 09/01/2023 Telephone Laboratory, [place] [address] [place] [address] Jocelyne Desai DO [address] [place] [address] [place] [address] Test Results (Unexpected or Indeterminate ... Allergies [...] [facility] for wound care [phone] Televideo if needed. Problem Noted Date Diagnosed [...] podiatry,. Letter in chart from [facility] podiatry they were unable to get in [...] ICD-10 update of inactive term PLATT RESEARCH OTHER*[id number] 02/20/2007 ADVANCE DIRECTIVE INFORMATION 01/19/2005 Overview: Yes, [...] 11/17/19 23 LUMBAGO 12/24/2002 05/09/2007 LOC PRIM [id number]-B-[id number] 12/24/200208/13 DEGENERATIVE SKIN DISORD 12/24/2002 VERTEBRAL FX [...] encounter Miscellaneous Notes * Telephone Encounter - Nara Bernstein RN - 09/04/2023 1:52 PM EDT Message sent to Jocelyne Desai DO for order and advice on recommendations. * Telephone Encounter - Franco Boo OSA - 09/01/2023 7:11 PM EDT Hello- The radiologist discovered an unexpected or indeterminate finding on Lg Colby Muckey ([id number]) andasks that you review the following report. Study Type:CT CHEST WO CONTRAST Date of Study: 08/31/2023 IMPRESSION 1. An irregular 6 mm nodule in the left upper lobe. Follow-up CT recommended in 6 months for reassessment. Please respond to this encounter to acknowledge receipt of this message and take responsibility to ensure this report is reviewed. Thank you, Franco Boo, MINERVA Client Service [facility] documented in this encounter Plan of Treatment Upcoming Encounters Date Type Department Care Team (Latest Contact Info) Description 4 8:20 AM EDT Laboratory Laboratory, [facility] [address] [facility] [place] [phone] [facility] [address] [facility] [place] [address] 4 6:15 AM EDT Anticoagulation Centralized Clinical Pharmacy Services, [address] [place] [address] [place] [address] 4 6:30 AM EDT Anticoagulation Centralized Clinical Pharmacy Services, [address] [place] [address] [place] [address] 4 8:52 AM EDT Hospital Encounter OR [facility], Operating Room, [facility] - 4th Floor [address] [place] [address] Amarilys Jaquez MD [address] [place] [address] 4 8:52 AM EDT - 4 9:28 AM EDT Surgery OR [facility], Operating Room, [facility] - 4th Floor [address] [place] [address] Amarilys Jaquez MD [address] [place] [address] ESOPHAGOGASTRODUODENOSCOPY (EGD), FLEXIBLE, TRANSORAL, DIAGNOSTIC 4 11:50 AM EDT Office Visit [address] [place] [phone] Jocelyne Desai[address] [place] [address] 4 2:00 PM EDT Office Visit Nephrology [address] [place] [address] Marycarmen Kowalski PA-C [address] [place] [address] 4 9:00 AM EST Office Visit Gastroenterolo gy [address] [place] [address] Moon Avila CRNP [address] [place] [address] 5 12:30 PM EST Nurse Only Ancillary [address] [place] [address] [place], Nurse [address] [place] [address] 5 2:30 PM EST Office Visit [address] [place] [phone] Jocelyne Desai[address] [place] [address] Scheduled Procedures Name Priority Associated Diagnoses Date/Ti [...] 1005/2022, 11/09/2022, Additional history exists GFR 02/28/2024 08/28/2023, 08/13, 07/31/2023, Additional history exists Albumin/Creatinine Ratio 07/17/2024 024, 11/16/2022, 05/13/2022, Additional history exists CKD HGB USE SMARTSET 45995 08/22/202408/22, 08/23/2023, 08/16/2023, Additional history exists CKD PHOS USE SMARTSET 57544 08/22/202408/13, 07/18/2023, 07/03/2023, Additional history exists DTaP,Tdap,and [...] encounter Medical Devices Implanted Type Area Hand Candy Dipper Device Identifier Shelf Expiration Date Model / Serial / Lot Shaft Fibula 6cm [id number] - [id number] Implanted:Qty: 1 on 09/05/2008 at OR [facility] [place] Tissue - Human N/A: Spine Cervical MUSCULOSKELETAL TRANSPLANT FND 04/20/2010 [id number] / [id number] 0P / Stent Eso Gw 22x70 [id number] - [id number] Implanted:Qty: 1 on 01/21/2008 at OR [facility] [place] N/A: Esophagus ALVEOLUS INC 04/12/2009 80587-263 / / [id number] Depuy Uniplate 32 Implanted:Qty: 1 on 09/05/2008 [...] Plate Zach 3 Level Ti 54mm - [id number] Implanted:Qty: 1 on 05/07/2010 at OR [facility] [place] N/A: Neck JNJ : DEPUY SPINE [id number] / / Screw Zach Const St Ti 14mm - [id number] Implanted:Qty: 4 on 05/07/2010 at OR [facility] [place] N/A: Neck JNJ : DEPUY SPINE [id number] 14 / / Screw 3.5x14 Mntr Fa [id number] - [id number] Implanted:Qty: 8 on 05/07/2010 at OR [facility] [place] N/A: Spine Cervical JNJ : ETHICON CARDIOVATIONS [id number] / / Jarrell [id number] - [id number] Implanted:Qty: 1 on 05/07/2010 at OR [facility] [place] N/A: Spine Cervical JNJ : ETHICON CARDIOVATIONS [id number] / / Screw Inner Mntr [id number] - [id number] Implanted:Qty: 8 on 05/07/2010 at OR [facility] [place] N/A: Spine Cervical JNJ : ETHICON CARDIOVATIONS [id number] / / Envista Intraocular Lens Implanted:Qty: 1 on 03/10/2022 by Liang Marshall MD at OR [facility] Right: Eye BAUSCH & LOMB 08/13/2023 [id number] / [id number] / [id number] Envista Intraocular Lens Implanted:Qty: 1 on 03/24/2022 by Liang Marshall MD at OR [facility] Left: Eye BAUSCH & LOMB 07/13/2024 [id number] / [id number] / [id number] documented as of this encounter Advance Directives Documents on File Type Date Recorded Patient House Steward/Stewardess Expl anation POLST 01/26/2021 [place] OR [facility] FOR LIFE-SUSTAINING [...] Power of Attor andrew? No Care Teams Enterprise Solutions Architect Relationship Specialty Start Date End Date Jocelyne Desai DO [address] [place] [address] [place] [address] PCP - General Internal Medicine 11/09/16 documented as of this encounter
--- OUTSIDE RECORDS SUMMARY | 2023-10-21 16:37 | External Medical Summary | Summary of Care ---
Author Name Unknown Organization [facility] Address [address] [facility] [place] [address] Phone [phone] Care Team Providers Care Magnetic Tape Winder Name Role Phone Jocelyne Desai DO Primary Care Provider [phone] Encounter Details Date Type Department Care Team (Late st Contact Info) Description 08/30/2023 Result Scan Unspecified Department <No scans attached> [...] connectivity [facility] for wound care [phone] Televideo if needed. Problem Noted Date Diagnosed Date MRSA (methicillin resistant Staphylococcus aureu s) 06/30/2023 Orthostatic hypotension 06/30/2023 Pressure injury of buttock, stage 2 06/30/2023 Full code status 06/28/2023 Calculus of gallbladder with out cholecystitis without obstruction 06/28/2023 Stasis ulcer 06/28/2023 History of VT (myocardial infarction) 11/09/2021 Trigger [...] ICD-10 update of inactive term PLATT RESEARCH OTHER*[id number] 02/20/2007 ADVANCE DIRECTIVE INFORMATION 01/19/2005 Overview: Yes, [...] [place] office early next week will need [facility] provider recheck Multiple and open wound [...] 02/27/2003 11/17/19 LUMBAGO 12/24/2002 05/09/2007 LOC PRIM [id number] 12/24/200208/13 DEGENERATIVE SKIN DISORD 12/24/2002 VERTEBRAL FX [...] Description 4 8:20 AM EDT Laboratory Laboratory, [facility] [address] [facility] [place] [address] [facility] 132 [facility] [place] [address] 4 6:15 AM EDT Anticoagulation Centralized Clinical Pharmacy Services, [facility] Miquel [address] [place] [address] [place] [address] [place] [address] 4 6:30 AM EDT Anticoagulation Centralized Clinical Pharmacy Services, Ilya [address] [place] [address] [place] [address] 4 8:52 AM EDT Hospital Encounter OR GL, Operating Room, [facility] - 4th Floor [address] [place] [address] Amarilys Jaquez MD [address] [place] [address] 4 8:52 AM EDT - 4 9:28 AM EDT Surgery OR [facility], Operating Room, [facility] - 4th Floor [address] [place] [address] Amarilys Jaquez MD 310 [facility] [place] [address] ESOPHAGOGASTRODUODENOSCOPY (EGD), FLEXIBLE, TRANSORAL, DIAGNOSTIC 4 11:50 AM EDT Office Visit Family Medicine [address] [place] [address] [place] [address] 4 2:00 PM EDT Office Visit Nephrology [address] [place] [address] ZemaMarycarmen lindsey PA-C [address] [place] [address] 4 9:00 AM EST Office Visit Gastroenterolo gy [address] [place] [address] Moon Avila CRNP [address] [place] [address] 5 12:30 PM EST Nurse Only Ancillary [address] [place] [address] [place], Nurse [address] [place] [address] 2:30 PM EST Office Visit Family Medicine [address] [place] [phone] Jocelyne Desai, [address] [place] [address] Scheduled Procedures Name Priority Associated Diagnoses Date/Ti [...] 08/13, 08/23/2023, Additional history exists Albumin/Creatinine Ratio 07/17/20242 024, 11/16/2022, 05/13/2022, Additional history exists CKD HGB USE SMARTSET 35915 08/22/202408/22, 08/23/2023, 08/16/2023, Additional history exists CKD PHOS USE SMARTSET 43741 08/22/202408/13, 07/18/2023, 07/03/2023, Additional history exists DTaP,Tdap,and [...] encounter Medical Devices Implanted Type Area Lens Dotter Device Identifier Shelf Expiration Date Model / Serial / Lot Shaft Fibula 6cm [id number] - [id number] Implanted:Qty: 1 on 09/05/2008 at [place] [facility] [place] Tissue - Human N/A: Spine Cervical MUSCULOSKELETAL TRANSPLANT FND 04/20/2010 [id number] / [id number] 0P / Stent Eso Gw 22x70 [id number] - [id number] Implanted:Qty: 1 on 01/21/2008 at [place] [facility] [place] N/A: Esophagus [employer]US INC 04/12/2009 43700-920 / / [id number] Depuy Uniplate 32 Implanted:Qty: 1 on 09/05/2008 at [place] [facility] [place] N/A: Spine Cervical TAMMY & TAMMY DEPUY 189--302 / / Depuy Uniplate Screw 14mm Implanted:Qty: 2 on 09/05/2008 at [place] [facility] [place] N/A: Spine Cervical TAMMY & TAMMY DEPUY 1896-07-017 / / Depuy Lordotic Bengal Cage Implanted:Qty: 1 on 05/07/2010 at [place] [facility] [place] N/A: Neck 1773-06-146 / 1773-06-146 / Plate Zach 3 Level Ti 54mm - [id number] Implanted:Qty: 1 on 05/07/2010 at [place] [facility] [place] N/A: Neck JNJ : DEPUY SPINE [id number] / / Screw Zach Const St Ti 14mm - [id number] Implanted:Qty: 4 on 05/07/2010 at [place] [facility] [place] N/A: Neck JNJ : DEPUY SPINE [id number] / / Screw 3.5x14 Mntr Fa [id number] - [id number] Implanted:Qty: 8 on 05/07/2010 at [place] [facility] [place] N/A: Spine Cervical JNJ : ETHICON CARDIOVATIONS [id number] / / Jarrell [id number] - [id number] Implanted:Qty: 1 on 05/07/2010 at [place] [facility] [place] N/A: Spine Cervical JNJ : ETHICON CARDIOVATIONS [id number] / / Screw Inner Mntr [id number] - [id number] Implanted:Qty: 8 on 05/07/2010 at [place] [facility] [place] N/A: Spine Cervical JNJ : ETHICON CARDIOVATIONS [id number] / / Envista Intraocular Lens Implanted:Qty: 1 on 03/10/2022 by Liang Marshall MD at OR [facility] Right: Eye BAUSCH & LOMB 08/13/2023 [id number] / [id number] / [id number] Envista Intraocular Lens Implanted:Qty: 1 on 03/24/2022 by Liang Marshall MD at OR [facility] Left: Eye BAUSCH & LOMB 07/13/2024 [id number] / [id number] / [id number] documented as of this encounter Procedures Procedure Name Priority Date/Time Associated Diagnosis Comments OUTSIDE LAB RESULTS 08/30/2023 documented in this encounter Results * OUTSIDE LAB RESULTS (08/30/2023) 08/30/2023 No Physician Data Unknown LABORATORY documented in this encounter Advance Directives Documents on File Type Date Recorded Patient Clinical Editor Expl anation POLST 01/26/2021 [place] OR [facility] FOR [facility]-SUSTAINING [...] Power of Attor andrew? No Care Teams Magnetic Tape Winder Relationship Specialty Start Date End Date Jocelyne Desai DO [address] [place] [address] [place] [address] PCP - General Internal Medicine 11/09/16 documented as of this encounter
--- OUTSIDE RECORDS SUMMARY | 2023-10-21 16:38 | External Medical Summary | Summary of Care ---
Author Name Unknown Organization [facility] Address [address] [place] [address] Phone [phone] Care Team Providers Care Inspector General Name Role Phone Jocelyne Desai Primary Care Provider + [phone] Encounter Details Date Type Department Care Team (Late st Contact Info) Description 09/04/2023 11:30 AM EDT Scheduled Telephone Care Coordination and Integration [address] [place], [place] [phone] Estefania Jaquez, Community Health Supply Chain Intern [address] [place] [address] Allergies No known active allergiesdocumented as of [...] different from the original. Good connectivity [facility] for wound care [phone] Televideo if needed. Problem Noted Date Diagnosed [...] with podiatry,. Letter in chart from [facility] podiatry they were unable to [...] ICD-10 update of inactive term PLATT RESEARCH OTHER*[id number] 02/20/2007 ADVANCE DIRECTIVE INFORMATION 01/19/2005 Overview: Yes, [...] 02/27/2003 11/17/19 LUMBAGO 12/24/2002 05/09/2007 LOC PRIM [id number] 12/24/200208/13 DEGENERATIVE SKIN DISORD 12/24/2002 VERTEBRAL FX [...] Progress Notes * Estefania Jaquez, Community Health Supply Chain Intern - 09/04/2023 12:14 PM EDT Telemedicine visit: No Community Health Supply Chain Intern (KELLY) documentation: CHW placed #3 f/u call to patient Patient reported that he is doing about the same. The nurse was just there to change his dressing on his wound. Still going to the wound clinic. No s/s of infection. Shortness of breath is the same. Patient questioned CHW about his upcoming Endoscopy and why he needed to have this done. Somebody just ordered it and he did not know who or why it was scheduled. Would like CM to give him a call about this. Calling the clinic is too hectic and he never gets through to anyone. Estefania Jaquez- Community Health Worker 1 Support Services/[facility] [email or web address] documented in this encounter Plan of Treatment Upcoming Encounters Date Type Department Care Team (Latest Contact Info) Description 4 8:20 AM EDT Laboratory Laboratory, [facility] 132 [facility] [place] [phone] [facility] 132 [facility] [place] [address] 4 6:15 AM EDT Anticoagulation Centralized Clinical Pharmacy Services, [address] [place] [address] [place] [address] 4 6:30 AM EDT Anticoagulation Centralized Clinical Pharmacy Services, [address] [place] [address] [place] [address] 4 8:52 AM EDT Hospital Encounter OR GL, Operating Room, [facility] - 4th Floor [address] [place] [address] Amarilys Jaquez MD [address] [place] [address] 4 8:52 AM EDT - 4 9:28 AM EDT Surgery OR GL, Operating Room, [facility] - 4th Floor [address] [place] [address] Amarilys Jaquez MD [address] [place] [address] ESOPHAGOGASTRODUODENOSCOPY (EGD), FLEXIBLE, TRANSORAL, DIAGNOSTIC 4 11:50 AM EDT Office Visit [address] [place] [address] [address] [place] [address] 4 2:00 PM EDT Office Visit Nephrology [address] [place] [address] ZemaMarycarmen lindsey PA-C [address] [place] [address] 4 9:00 AM EST Office Visit Gastroenterolo gy [address] [place] [address] Moon Avila CRNP [address] [facility] [address] 5 12:30 PM EST Nurse Only Ancillary [address] [place] [address] [place], Nurse [address] [place] [address] 5 2:30 PM EST Office Visit [address] [place] [address] [address] [place] [address] Scheduled Procedures Name Priority Associated Diagnoses Date/Ti [...] Additional history exists CKD HGB USE SMARTSET 21487 08/22/202408/22, 08/23/2023, 08/16/2023, Additional history exists CKD PHOS USE SMARTSET 15762 08/22/202408/13, 07/18/2023, 07/03/2023, Additional history exists DTaP,Tdap,and [...] this encounter Medical Devices Implanted Type Area Motor Power Connector Device Identifier Shelf Expiration Date Model / Serial / Lot Shaft Fibula 6cm [id number] - [id number] Implanted:Qty: 1 on 09/05/2008 at OR [facility] Tissue - Human N/A: Spine Cervical MUSCULOSKELETAL TRANSPLANT FND 04/20/2010 [id number] / [id number] 0P / Stent Eso Gw 22x70 [address]75[address]-720 - [id number] Implanted:Qty: 1 on 01/21/2008 at OR [facility] N/A: Esophagus [employer] INC 04/12/2009 25614-451 / / [id number] Depuy Uniplate 32 Implanted:Qty: 1 on 09/05/2008 [...] Plate Zach 3 Level Ti 54mm - [id number] Implanted:Qty: 1 on 05/07/2010 at OR [facility] N/A: Neck JNJ : DEPUY SPINE [id number] / / Screw Zach Const St Ti 14mm - [id number] Implanted:Qty: 4 on 05/07/2010 at OR [facility] N/A: Neck JNJ : DEPUY SPINE [id number] 14 / / Screw 3.5x14 Mntr Fa [id number] - [id number] Implanted:Qty: 8 on 05/07/2010 at OR [facility] N/A: Spine Cervical JNJ : ETHICON CARDIOVATIONS [id number] / / Jarrell [id number] - [id number] Implanted:Qty: 1 on 05/07/2010 at OR [facility] N/A: Spine Cervical JNJ : ETHICON CARDIOVATIONS [id number] / / Screw Inner Mntr [id number] - [id number] Implanted:Qty: 8 on 05/07/2010 at OR [facility] N/A: Spine Cervical JNJ : ETHICON CARDIOVATIONS [id number] / / Envista Intraocular Lens Implanted:Qty: 1 on 03/10/2022 by Liang Marshall MD at OR [facility] Right: Eye BAUSCH & LOMB 08/13/2023 [id number] / [id number] / [id number] Envista Intraocular Lens Implanted:Qty: 1 on 03/24/2022 by Liang Marshall MD at OR [facility] Left: Eye BAUSCH & LOMB 07/13/2024 [id number] / [id number] / [id number] documented as of this encounter Advance Directives Documents on File Type Date Recorded Patient Latent Print Examiner Expl anation POLST 01/26/2021 [place] OR [facility] FOR [...] Power of Attor andrew? No Care Teams Inspector General Relationship Specialty Start Date End Date Jocelyne Desai DO [address] [place] [address] [place] [phone] PCP - General Internal Medicine 11/09/16 documented as of this encounter
--- OUTSIDE RECORDS SUMMARY | 2023-10-21 16:38 | External Medical Summary | Summary of Care ---
Author Name Unknown Organization [facility] Address [address] [place] [facility] [place] [address] Phone [phone] Care Team Providers Care Investigations Manager Name Role Phone Jocelyne Desai Primary Care Provider + [phone] Encounter Details Date Type Department Care Team (Late st Contact Info) Description 08/30/2023 Orders Only Nephrology, Cely Zaldivar 200 [facility] [place] [address] Jennifer Agustin MD [address] [facility] [place] [address] Allergies No known active allergiesdocumented as of this encounter (statuses as of 08/30/2023) Medications Medication Sig Dispensed Refills Start Date [...] before bedtime. 200 Tablet 3 07/25/2023 Active Atorvastatin Calcium 40 [...] as of this encounter (statuses as of 08/30/2023) Active Problems Patient Care Coordination No te Formatting of this note migh t be different from the original. Good connectivity [facility] for wound care [phone] Televideo if needed. Problem Noted Date Diagnosed [...] podiatry,. 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 SPINAL STENOSIS-LUMBAR 09/23/2002 Vitamin D deficiency Cervical spinal stenosis documented as of this encounter (statuses as of 08/30/2023) Resolved Problems Problem Noted Date Diagnosed Date [...] 02/27/2003 11/17/19 LUMBAGO 12/24/2002 05/09/2007 LOC PRIM [id number] 12/24/200208/13 DEGENERATIVE SKIN DISORD 12/24/2002 VERTEBRAL FX [...] as of this encounter (statuses as of 08/30/2023) Immunizations Name Administration Dates Next Due COVID-19 mRNA, LNP-s, No Pre serve, 2-Dose Series (Moderna) 03/19/2020 COVID-19 mRNA, LNP-s, No Pre serve, 2-Dose Series (Pfizer) 02/16/2021,04/09/2020,03/19/2020 COVID-19, MRNA-LNP, 23-24, P F, 30 MCG/0.3 mL, 12 YRS AND ABOVE, IM (FirstRide-Comirnaty) 11/16/2022 Covid-19, Mrna, Lnp-s, Pf, B ivalent, [...] Care Team (Latest Contact Info) Description 4 8:45 AM EDT Imaging Radiology [facility] [address] [place] [address] 4 6:15 AM EDT Anticoagulation Centralized Clinical Pharmacy Services, Ilya Lafleur [address] [place] [address] [place] [address] [facility], [address] [place] [address] 4 8:52 AM EDT Hospital Encounter OR GLH, Operating Room, [facility] - 4th Floor [address] [place] [address] Amarilys Jaquez MD [address] [place] [address] 4 8:52 AM EDT - 4 9:28 AM EDT Surgery OR GL, Operating Room, [facility] - 4th Floor [address] [place] [address] Amarilys Jaquez MD [facility] [place] [address] ESOPHAGOGASTRODUODENOSCOPY (EGD), FLEXIBLE, TRANSORAL, DIAGNOSTIC 4 11:50 AM EDT Office Visit Family [address] [place] [phone] Jocelyne Desai[address] [place] [address] 4 2:00 PM EDT Office Visit Nephrology [address] [place] [address] ZemaitisMarycarmen PA-C [address] [place] [address] 4 9:00 AM EST Office Visit Gastroenterolo gy [address] [place] [address] Moon Avila, OLEG [address] [place] [address] 5 12:30 PM EST Nurse Only Ancillary [address] [place] [address] [place], Nurse [address] [place] [address] 5 2:30 PM EST Office Visit Family Medicine [address] [place] [phone] [address] [place] [address] Scheduled Procedures Name Priority Associated Diagnoses Date/Ti [...] Additional history exists Depression Screening 02/17/2024 02/16/2023 GFR 02/23/2024 08/28/2023, 08/13, 07/31/2023, Additional history exists HbA1c 02/23/2024 08/23/2023, 05/2022, 11/09/2022, Additional history exists Albumin/Creatinine Ratio 07/17/20242 024, 11/16/2022, 05/13/2022, Additional history exists CKD HGB USE SMARTSET 10700 08/22/202408/22, 08/23/2023, 08/16/2023, Additional history exists CKD PHOS USE SMARTSET 96406 08/22/2024 07/, 07/18/2023, 07/03/2023, Additional history exists [...] encounter Medical Devices Implanted Type Area Sales Program Manager Device Identifier Shelf Expiration Date Model / Serial / Lot Shaft Fibula 6cm [id number] - [id number] Implanted:Qty: 1 on 09/05/2008 at [place] [facility] Tissue - Human N/A: Spine Cervical MUSCULOSKELETAL TRANSPLANT FND 04/20/2010 [id number] / [id number] 0P / Stent Eso Gw 22x70 12852-219 - [id number] Implanted:Qty: 1 on 01/21/2008 at OR [facility] N/A: Esophagus [employer]US INC 04/12/2009 47897-638 / / [id number] Depuy Uniplate 32 Implanted:Qty: 1 on 09/05/2008 [...] Plate Zach 3 Level Ti 54mm - [id number] Implanted:Qty: 1 on 05/07/2010 at OR [facility] N/A: Neck JNJ : DEPUY SPINE [id number] / / Screw Zach Const St Ti 14mm - [id number] Implanted:Qty: 4 on 05/07/2010 at OR [facility] N/A: Neck JNJ : DEPUY SPINE [id number] 14 / / Screw 3.5x14 Mntr Fa [id number] - [id number] Implanted:Qty: 8 on 05/07/2010 at OR [facility] N/A: Spine Cervical JNJ : ETHICON CARDIOVATIONS [id number] / / Jarrell 3.7x336mr [id number] - [id number] Implanted:Qty: 1 on 05/07/2010 at OR [facility] N/A: Spine Cervical JNJ : ETHICON CARDIOVATIONS [id number] / / Screw Inner Mntr [id number] - [id number] Implanted:Qty: 8 on 05/07/2010 at OR [facility] N/A: Spine Cervical JNJ : ETHICON CARDIOVATIONS [id number] / / Envista Intraocular Lens Implanted:Qty: 1 on 03/10/2022 by Liang Marshall MD at OR [facility] [address] [address] Right: Eye BAUSCH & LOMB 08/13/2023 [id number] / [id number] / [id number] Envista Intraocular Lens Implanted:Qty: 1 on 03/24/2022 by Liang Marshall MD at OR [facility] [address] Left: Eye BAUSCH & LOMB 07/13/2024 [id number] / [id number] / [id number] documented as of this encounter Procedures Procedure Name Priority Date/Time Associated Diagnosis Comments CHEMISTRY-OUTSIDE Routine 08/28/2023 documented in this encounter Results * (ABNORMAL) CHEMISTRY-OUTSIDE (08/28/2023) Not all results display below - see scan for full detail OUTSIDE LAB (SEE SCANNED REPORT) Comment:SCAN INCL: BMP CREATININE-OUTSID E LAB 3.33(A) 0.70 - 1.30 MG/DL OUTSIDE LAB (SEE SCANNED REPORT) EGFR-OUTSIDE LAB 19(A) >=60 ML/MIN OUTSIDE LAB (SEE SCANNED REPORT) [...] LAB OUTSIDE LAB (SEE SCANNED REPORT) HEMOGLOBIN, [id number] LAB OUTSIDE LAB (SEE SCANNED REPORT) PHOSPHORUS-OUTSID [...] Documents on File Type Date Recorded Patient Lockstitcher Expl anation POLST 01/26/2021 [place] OR [facility] FOR LIFE-SUSTAINING TREATMENT * No [...] Power of Attor andrew? No Care Teams Investigations Manager Relationship Specialty Start Date End Date Jocelyne Desai DO [address] [place] [address] [place] [address] PCP - General Internal Medicine 11/09/16 documented as of this encounter
--- OUTSIDE RECORDS SUMMARY | 2023-10-21 16:38 | External Medical Summary | Summary of Care ---
Author Name Unknown Organization [facility] Address [address] [place] [address] Phone [phone] Care Team Providers Care Clinical Laboratory Director Name Role Phone Jocelyne Desai DO Primary Care Provider Reason for Visit * Reason Onset Date Comments Test Results 09/01/2023 Unexpected or In determinate Result Encounter Details Date Type Department Care Team (Late st Contact Info) Description 09/01/2023 Telephone Laboratory, [facility] [address] [place] [address] Jocelyne Desai DO [address] [place] [address] [place] [address] Test Results (Unexpected or Indeterminate ... Allergies No known active allergiesdocumented as of this encounter (statuses as of 09/01/2023) Medications Medication Sig Dispensed Refills Start Date [...] as of this encounter (statuses as of 09/01/2023) Active Problems Patient Care Coordination No te Formatting of this note migh t be different from the original. Good connectivity [facility] for wound care [phone] Televideo if needed. Problem Noted Date Diagnosed [...] with podiatry,. 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 SPINAL STENOSIS-LUMBAR 09/23/2002 Vitamin D deficiency Cervical spinal stenosis documented as of this encounter (statuses as of 09/01/2023) Resolved Problems Problem Noted Date Diagnosed Date [...] 11/17/19 23 LUMBAGO 12/24/2002 05/09/2007 LOC PRIM [id number] 12/24/200208/13 DEGENERATIVE SKIN DISORD 12/24/2002 VERTEBRAL FX [...] as of this encounter (statuses as of 09/01/2023) Immunizations Name Administration Dates Next Due COVID-19 [...] encounter Miscellaneous Notes * Telephone Encounter - Franco Boo OSA - 09/01/2023 7:11 PM EDT Hello- The radiologist discovered an unexpected or indeterminate finding on Lg Cooley ([id number]) andasks that you review the following report. Study Type:CT CHEST WO CONTRAST Date of Study: 08/31/2023 IMPRESSION 1. An irregular 6 mm nodule in the left upper lobe. Follow-up CT recommended in 6 months for reassessment. Please respond to this encounter to acknowledge receipt of this message and take responsibility to ensure this report is reviewed. Thank you, MINERVA Ramirez Client Service [facility] documented in this encounter Plan of Treatment Upcoming Encounters Date Type Department Care Team (Latest Contact Info) Description 4 8:20 AM EDT Laboratory Laboratory, [facility] [address] [place] [phone] [employer] [address] ROJAS [place] [address] 4 6:15 AM EDT Anticoagulation Centralized Clinical Pharmacy Services, [address] [place] [address] [facility], [address] [place] [address] 4 6:30 AM EDT Anticoagulation Centralized Clinical Pharmacy Services, [address] [place] [address] [place] [address] 4 8:52 AM EDT Hospital Encounter OR [facility], Operating Room, [facility] - 4th Floor [address] [address] Amarilys Jaquez MD [address] [place] [address] 4 8:52 AM EDT - 4 9:28 AM EDT Surgery OR [facility], Operating Room, [facility] - 4th Floor [address] [place] [address] Amarilys Jaquez MD [address] [place] [address] ESOPHAGOGASTRODUODENOSCOPY (EGD), FLEXIBLE, TRANSORAL, DIAGNOSTIC 4 11:50 AM EDT Office [address] [address] [place] [address] 4 2:00 PM EDT Office Visit Nephrology [address] [place] [address] ZeMarycarmen alan PA-C [address] [place] [address] 4 9:00 AM EST Office Visit Gastroenterolo gy [address] [place] [address] Moon Avila CRNP [address] [place] [address] 5 12:30 PM EST Nurse Only Ancillary [address] [place] [address] [place], Nurse Annual [address] [place] [address] 5 2:30 PM EST Office Visit Family Medicine [address] [place] [phone] Jocelyne Desai[address] [place] [address] Scheduled Procedures Name Priority Associated Diagnoses Date/Ti [...] Additional history exists CKD HGB USE SMARTSET 34930 08/22/202408/22, 08/23/2023, 08/16/2023, Additional history exists CKD PHOS USE SMARTSET 84172 08/22/202408/13, 07/18/2023, 07/03/2023, Additional history exists DTaP,Tdap,and [...] this encounter Medical Devices Implanted Type Area Armature Connector Device Identifier Shelf Expiration Date Model / Serial / Lot Shaft Fibula 6cm [id number] - [id number] Im[place]ed:Qty: 1 [place] 09[place]05/[place] [facility] [place] Human N/A: Spine Cervical MUSCULOSKELETAL TRANSPLANT FND 04/20/2010 [id number] / [id number] 0P / Stent Eso Gw 22x70 [id number] - [id number] Implanted:Qty: 1 on 01/21/2008 [place] [facility] [place] N/A: Esophagus [employer]US INC 04/12/2009 83456-796 / / [id number] Depuy Uniplate 32 Implanted:Qty: 1 [place] Neck 1773-06-146 / 1773-06-146 / Plate Zach 3 Level Ti 54mm - [id number] Implanted:Qty: 1 on 05/07/2010 [place] [facility] [place]A: Neck JNJ : DEPUY SPINE [id number] / / Screw Zach Const St Ti 14mm - [id number] Implanted:Qty: 4 on 05/07/2010 [place] [facility] [place]A: Neck JNJ : DEPUY SPINE [id number] 14 / / Screw 3.5x14 Mntr Fa [id number] - [id number] Implanted:Qty: 8 on 05/07/2010 [place] [facility] [place]: Spine Cervical JNJ : ETHICON CARDIOVATIONS [id number] / / Jarrell [id number] - [id number] Implanted:Qty: 1 on 05/07/2010 [place] [facility] [place]: Spine Cervical JNJ : ETHICON CARDIOVATIONS [id number] / / Screw Inner Mntr [id number] - [id number] Implanted:Qty: 8 on 05/07/2010 [place] [facility] [place]A: Spine Cervical JNJ : ETHICON CARDIOVATIONS [id number] / / Envista Intraocular Lens Implanted:Qty: 1 on 03/10/2022 by Liang Marshall MD at OR [facility] Right: Eye BAUSCH & LOMB 08/13/2023 [id number] / [id number] / [id number] Envista Intraocular Lens Implanted:Qty: 1 on 03/24/2022 by Liang Marshall MD at OR [facility] Left: Eye BAUSCH & LOMB 07/13/2024 [id number] / [id number] / [id number] documented as of this encounter Advance Directives Documents on File Type Date Recorded 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 No Care Teams Clinical Laboratory Director Relationship Specialty Start Date End Date Jocelyne Desai DO [address] [place] [address] [place] [address] PCP - General Internal Medicine 11/09/16 documented as of this encounter
--- OUTSIDE RECORDS SUMMARY | 2023-10-21 16:38 | External Medical Summary ---
Author Name Unknown Address Unknown Organization K0G:[facility] [address] [place] [address] Laboratory Report Ordering Provider Test Date Status DONNELL PRIETO 08/31/2023 08:11:46 Final Please draw PT/INR every 1-4 weeks or as requested by the [facility]

Warfarin Therapy
INR: 2.0-3.0 conventional anticoagulation
INR: 2.5-3.5 high intensity anticoagulation Observation Date Value Abnormality Reference (Units ) Status PT 08/31/2023 08:11:46 41.8 Above high normal 11 .6-15.2 (seconds) Final INR 08/31/2023 08:11:46 4.3 Above high normal 0. 8-1.2 Final Performing Location [facility] [address] [place] [address]
--- OUTSIDE RECORDS SUMMARY | 2023-10-21 16:38 | External Medical Summary | Summary of Care ---
Author Name Unknown Organization [facility] Address [address] [place] [facility] [place] [address] Phone [phone] Care Team Providers Care Clinical Program Manager Name Role Phone Jocelyne Desai Primary Care Provider + [phone] Encounter Details Date Type Department Care Team (Late st Contact Info) Description 08/30/2023 Orders Only Nephrology, Cely Zaldivar [address] [facility] [place] [address] Jennifer Agustin MD [address] [facility] [address] Allergies No known active allergiesdocumented as of this encounter (statuses as of 08/31/2023) Medications Medication Sig Dispensed Refills Start Date [...] as of this encounter (statuses as of 08/31/2023) Active Problems Patient Care Coordination No te Formatting of this note migh t be different from the original. Good connectivity [facility] for wound care [phone] Televideo if needed. Problem Noted Date Diagnosed [...] with podiatry,. Letter in chart from [facility] podiatry they were unable to [...] ICD-10 update of inactive term PLATT RESEARCH OTHER*[id number] 02/20/2007 ADVANCE DIRECTIVE INFORMATION 01/19/2005 Overview: Yes, Patient instructed to provide copy of advance directive for provider to review and to be scanned into Electronic Medical Record No, Advance Directive brochure given to patient at prior appointment. SPINAL STENOSIS-LUMBAR 09/23/2002 Vitamin D deficiency Cervical spinal stenosis documented as of this encounter (statuses as of 08/31/2023) Resolved Problems Problem Noted Date Diagnosed Date [...] 11/17/19 23 LUMBAGO 12/24/2002 05/09/2007 LOC PRIM [id number] 12/24/200208/13 DEGENERATIVE SKIN DISORD 12/24/2002 VERTEBRAL FX [...] as of this encounter (statuses as of 08/31/2023) Immunizations Name Administration Dates Next Due COVID-19 [...] as of this encounter Miscellaneous Notes * Result Encounter Note - Jennifer Agustin MD - 08/30/2023 12:06 PM EDT Please insure he is taking torsemide and potassium per current medication list: Please verify doses. Assuming he is taking as prescribed, recommend increasing potassium to 40 mEq twice daily. Repeat basic metabolic panel after 5-7 days on this documented in this encounter Plan of Treatment Upcoming Encounters Date Type Department Care Team (Latest Contact Info) Description 6:00 PM EDT [facility] Clinical Pharmacy Services, Ilya Lafleur [address] [place] [address] [place] [address] [place] [address] Chronic atrial fibrillation (HCC)* 4 8:20 AM EDT Laboratory Laboratory, [facility] [place] [place] [address] [facility] [address] [facility] [place] [address] 4 6:15 AM EDT Anticoagulation Centralized Clinical Pharmacy Services, [address] [place] [address] [place] [address] 4 6:30 AM EDT Anticoagulation Centralized Clinical Pharmacy Services, [address] [place] [address] [place] [address] 4 8:52 AM EDT Hospital Encounter OR [facility], Operating Room, [facility] - 4th Floor [address] [place] [address] Amarilys Jaquez MD [address] [employer] [place] [address] 4 8:52 AM EDT - 4 9:28 AM EDT Surgery OR [facility], Operating Room, [facility] - 4th Floor [address] [place] [address] Amarilys Jaquez MD [address] [employer] [place] [address] ESOPHAGOGASTRODUODENOSCOPY (EGD), FLEXIBLE, TRANSORAL, DIAGNOSTIC 4 11:50 AM EDT Office [address] [address] [address] [place] [address] 4 2:00 PM EDT Office Visit Nephrology [address] [place] [address] Marycarmen Kowalski PA-C [address] [place] [address] 4 9:00 AM EST Office Visit Gastroenterolo gy [address] [place] [address] Moon Avila CRNP [address] [place] [address] 5 12:30 PM EST Nurse Only Ancillary [address] [place] [address] [place], Nurse Annual [address] [place] [address] 5 2:30 PM EST Office Visit Family Medicine [address] [place] [phone] Jocelyne Desai[address] [place] [address] Scheduled Procedures Name Priority Associated Diagnoses Date/Ti [...] Additional history exists CKD HGB USE SMARTSET 00118 08/22/202408/22, 08/23/2023, 08/16/2023, Additional history exists CKD PHOS USE SMARTSET 91477 08/22/202408/13, 07/18/2023, 07/03/2023, Additional history exists DTaP,Tdap,and [...] this encounter Medical Devices Implanted Type Area Salesperson Burial Plots Device Identifier Shelf Expiration Date Model / Serial / Lot Shaft Fibula 6cm [id number] - [id number] Implanted:Qty: 1 on 09/05/2008 [place] [facility] [place] - Human N/A: Spine Cervical MUSCULOSKELETAL TRANSPLANT FND 04/20/2010 [id number] / [id number] 0P / Stent Eso Gw 22x70 76430-290 - [id number] Implanted:Qty: 1 on 01/21/2008 [place] [facility] [place] N/A: Esophagus [employer]US INC 04/12/2009 65284-078 / / [id number] Depuy Uniplate 32 Implanted:Qty: 1 on 09/05/2008 [...] Plate Zach 3 Level Ti 54mm - [id number] Implanted:Qty: 1 on 05/07/2010 [place] [facility] [place] N/A: Neck JNJ : DEPUY SPINE [id number] 54 / / Screw Zach Const St Ti 14mm - [id number] Implanted:Qty: 4 on 05/07/2010 at [place] [facility] [place] N/A: Neck JNJ : DEPUY SPINE [id number] 14 / / Screw 3.5x14 Mntr Fa [id number] - [id number] Implanted:Qty: 8 on 05/07/2010 [place] [facility] [place]/A: Spine Cervical JNJ : ETHICON CARDIOVATIONS [id number] / / Jarrell 3.2o573ff [id number] - [id number] Implanted:Qty: 1 on 05/07/2010 [place] [facility] [place]/A: Spine Cervical JNJ : ETHICON CARDIOVATIONS [id number] / / Screw Inner Mntr [id number] - [id number] Implanted:Qty: 8 on 05/07/2010 [place] [facility] [place] N/A: Spine Cervical JNJ : ETHICON CARDIOVATIONS [id number] / / Envista Intraocular Lens Implanted:Qty: 1 on 03/10/2022 by Liang Marshall MD at OR [facility] Right: Eye BAUSCH & LOMB 08/13/2023 [id number] / [id number] / [id number] Envista Intraocular Lens Implanted:Qty: 1 on 03/24/2022 by Liang Marshall MD at OR [facility] Left: Eye BAUSCH & LOMB 07/13/2024 [id number] / [id number] / [id number] documented as of this encounter Procedures Procedure [...] LAB OUTSIDE LAB (SEE SCANNED REPORT) HEMOGLOBIN, [id number] LAB OUTSIDE LAB (SEE SCANNED REPORT) PHOSPHORUS-OUTSID [...] on File Type Date Recorded 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 No Care Teams Clinical Program Manager Relationship Specialty Start Date End Date Jocelyne Desai DO [address] [place] [address] [place] [address] PCP - General Internal Medicine 11/09/16 documented as of this encounter
--- OUTSIDE RECORDS SUMMARY | 2023-10-21 16:38 | External Medical Summary | Summary of Care ---
Author Name Unknown Organization [facility] Address [address] [facility] [place] [address] Phone [phone] Care Team Providers Care Animal Husbandry Manager Name Role Phone Desai Jocelyne Briggs DO Primary Care Provider + [phone] Reason for Visit * Reason Comments Dosage Adjustment Via Phone (anticoag Cl inic) Encounter Details Date Type Department Care Team (Late st Contact Info) Description 08/31/2023 6:00 PM EDT Anticoagulation Centralized Clinical Pharmacy Services, Ilya Lafleur [address] [place] [address] [place] [address] [facility], [address] [place] [address] Chronic atrial fibrillation (HCC)* Allergies No known [...] be different from the original. Good connectivity [facility] for wound care [phone] Televideo if needed. Problem Noted Date Diagnosed [...] podiatry,. 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 1 [...] ICD-10 update of inactive term PLATT RESEARCH OTHER*[id number] 02/20/2007 ADVANCE DIRECTIVE INFORMATION 01/19/2005 Overview: Yes, [...] [place] office early next week will need [facility] provider recheck Multiple and open wound [...] 11/17/19 23 LUMBAGO 12/24/2002 05/09/2007 LOC PRIM [id number] 12/24/200208/13 DEGENERATIVE SKIN DISORD 12/24/2002 VERTEBRAL FX [...] this encounter Progress Notes * Korin Meléndez, public affairs specialist - 08/31/2023 11:37 AM EDT Contacts Type Contact Phone/Fax 08/31/2023 11:32 AM EDT Phone (Outgoing) Lg Cooley "Akshat" (Self) [phone] (H) Spoke to Patient Subjective Patient Findings [...] days Next INR check: 09/07/2023 Confirm if [facility] nurses will draw going forward or if pt will go to lab. Today's INR drawnin lab. Repeat PT/INR in 1 week(s) Weekly dose: not changed Additional Dosing Information: Description [facility] Nurses -- Mondays and Fridays ; fax - [phone] ([facility]) Tech to contact patient with dose instructions as noted. Estefania Palacios RPh 08/31/2023, 11:19 AM documented in this encounter Plan of Treatment Upcoming Encounters Date Type Department Care Team (Latest Contact Info) Description 6:15 AM EDT Anticoagulation Centralized Clinical Pharmacy Services, Ilya Lafleur [address] [place] [address] [place] [address] [place] [address] 4 6:30 AM EDT Anticoagulation Centralized Clinical Pharmacy Services, Ilya Lafleur [address] [place] [address] [place] [address] [facility], [address] [place] [address] 4 8:52 AM EDT Hospital Encounter OR [facility], Operating Room, [facility] - 4th Floor [address] [place] [address] Amarilys Jaquez MD [address] [employer] [place] [address] 4 8:52 AM EDT - 4 9:28 AM EDT Surgery OR [facility], Operating Room, [facility] - 4th Floor [address] [place] [address] Amarilys Jaquez MD [address] [facility] [place] [address] ESOPHAGOGASTRODUODENOSCOPY (EGD), FLEXIBLE, TRANSORAL, DIAGNOSTIC 4 11:50 AM EDT Office Visit Family Medicine [address] [place] [address] [place] [address] 4 2:00 PM EDT Office Visit Nephrology [address] [place] [address] ZemaMarycarmen lindsey PA-C [address] [facility] [place] [address] 4 9:00 AM EST Office Visit Gastroenterolo gy [address] [place] [address] Moon Avila, OLEG [address] [place] [address] 5 12:30 PM EST Nurse Only Ancillary [address] [place] [address] [place], Nurse Annual [address] [place] [address] 5 2:30 PM EST Office Visit Family Medicine [address] [place] [phone] [place] [address] Scheduled Procedures Name Priority Associated Diagnoses Date/Ti [...] 100 05/2022, 11/09/2022, Additional history exists GFR 02/28/2024 08/28/2023, 08/13, 07/31/2023, Additional history exists Albumin/Creatinine Ratio 07/17/2024 024, 11/16/2022, 05/13/2022, Additional history exists CKD HGB USE SMARTSET 24406 08/22/202408/22, 08/23/2023, 08/16/2023, Additional history exists CKD PHOS USE SMARTSET 71034 08/22/202408/13, 07/18/2023, 07/03/2023, Additional history exists DTaP,Tdap,and [...] this encounter Medical Devices Implanted Type Area Tire Inspector Device Identifier Shelf Expiration Date Model / Serial / Lot Shaft Fibula 6cm [id number] - [id number] Implanted:Qty: 1 on 09/05/2008 at [place] [facility] [place] Tissue - Human N/A: Spine Cervical MUSCULOSKELETAL TRANSPLANT FND 04/20/2010 [id number] / [id number] 0P / Stent Eso Gw 22x70 94820-807 - [id number] Implanted:Qty: 1 on 01/21/2008 at OR [facility] [place] [place] N/A: Esophagus ALVEOLUS INC 04/12/2009 61933-885 / / [id number] Depuy Uniplate 32 Implanted:Qty: 1 on 09/05/2008 at OR [facility] [place] [place] N/A: Spine Cervical TAMMY & TAMMY DEPUY 1897-02-302 / / Depuy Uniplate Screw 14mm Implanted:Qty: 2 on 09/05/2008 at OR [facility] [place] [place] N/A: Spine Cervical TAMMY & TAMMY DEPUY 1897-06-017 / / Depuy Lordotic Bengal Cage Implanted:Qty: 1 on 05/07/2010 at OR [facility] [place] [place] N/A: Neck 1773-06-146 / 1773-06-146 / Plate Zach 3 Level Ti 54mm - [id number] Implanted:Qty: 1 on 05/07/2010 at OR [facility] [place] [place] N/A: Neck JNJ : DEPUY SPINE [id number] 54 / / Screw Zach Const St Ti 14mm - [id number] Implanted:Qty: 4 on 05/07/2010 at OR [facility] [place] [place] N/A: Neck JNJ : DEPUY SPINE [id number] 14 / / Screw 3.5x14 Mntr Fa [id number] - [id number] Implanted:Qty: 8 on 05/07/2010 at OR [facility] [place] [place] N/A: Spine Cervical JNJ : ETHICON CARDIOVATIONS [id number] / / Jarrell [id number] - [id number] Implanted:Qty: 1 on 05/07/2010 at OR [facility] [place] [place] N/A: Spine Cervical JNJ : ETHICON CARDIOVATIONS [id number] / / Screw Inner Mntr [id number] - [id number] Implanted:Qty: 8 on 05/07/2010 at OR [facility] [place] [place] N/A: Spine Cervical JNJ : ETHICON CARDIOVATIONS [id number] / / Envista Intraocular Lens Implanted:Qty: 1 on 03/10/2022 by Liang Marshall MD at [place] [facility] Right: Eye BAUSCH & LOMB 08/13/2023 [id number] / [id number] / [id number] Envista Intraocular Lens Implanted:Qty: 1 on 03/24/2022 by Liang Marshall MD at OR [facility] Left: Eye BAUSCH & LOMB 07/13/2024 [id number] / [id number] / [id number] documented as of this encounter Visit Diagnoses Diagnosis Chronic atrial fibrillation (HCC)- Primary Atrial fibrillation Anorexia Weight loss Loss of weight documented in this encounter Advance Directives Documents on File Type Date Recorded 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 No Care Teams Animal Husbandry Manager Relationship Specialty Start Date End Date Jocelyne Desai DO [address] [place] [address] [place] [address] PCP - General Internal Medicine 11/09/16 documented as of this encounter
--- OUTSIDE RECORDS SUMMARY | 2023-10-21 16:38 | External Medical Summary | Summary of Care ---
Author Name Unknown Organization [facility] Address [address] [facility] [place] [address] Phone [phone] Care Team Providers Care Iv Therapy Nurse Name Role Phone Jocelyne Desai Primary Care Provider + [phone] Reason for Visit * Reason Comments Outpatient Testing Encounter Details Date Type Department Care Team (Late st Contact Info) Description 08/31/2023 8:20 AM EDT Laboratory Laboratory, [facility] [address] [place] [phone] [facility] [address] [place] [address] Chronic atrial fibrillation (HCC) Allergies No known [...] be different from the original. Good connectivity [facility] for wound care [phone] Televideo if needed. Problem Noted Date Diagnosed [...] with podiatry,. 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 (Household - for ages [...] Description 4 8:45 AM EDT Imaging Radiology [facility] [address] [place] [address] Arrived 4 6:15 AM EDT Anticoagulation Centralized Clinical Pharmacy Services, Ilya Lafleur [address] [place] [address] [place] [address] [facility], [address] [place] [address] 4 8:52 AM EDT Hospital Encounter [facility], Operating Room, [place] - 4th Floor [address] [place] [address], [place] [address] Amarilys Jaquez MD [address] [place] [address] 4 8:52 AM EDT - 4 9:28 AM EDT Surgery [facility], Operating Room, [place] - 4th Floor [address] [place] [address] Amarilys Jaquez MD 310 [facility] [place] [address] ESOPHAGOGASTRODUODENOSCOPY (EGD), FLEXIBLE, TRANSORAL, DIAGNOSTIC 4 11:50 AM EDT Office Visit Family Medicine [address] [place] [address] [place] [address] 4 2:00 PM EDT Office Visit Nephrology [address] [place] [address] ZemaitisMarycarmen PA-C [address] [place] [address] 4 9:00 AM EST Office Visit Gastroenterolo gy [address] [place] [address] Moon Avila CRNP [address] [place] [address] 5 12:30 PM EST Nurse Only Ancillary [address] [place] [address] [place], Nurse [address] [place] [address] 2:30 PM EST Office Visit Family Medicine [address] [place] [phone] [address] [place] [address] Pending Results Name Type Priority Associated Diagnoses Date /Time PT INR Lab Routine Chronic atrial fibrillation (HCC) 08/31/2023 8:11 AM EDT Scheduled Procedures Name Priority Associated [...] 08/13, 07/31/2023, Additional history exists Albumin/Creatinine Ratio 07/17/20242 024, 11/16/2022, 05/13/2022, Additional history exists CKD HGB USE SMARTSET 85574 08/22/202408/22, 08/23/2023, 08/16/2023, Additional history exists CKD PHOS USE SMARTSET 41913 08/22/202408/13, 07/18/2023, 07/03/2023, Additional history exists DTaP,Tdap,and [...] this encounter Medical Devices Implanted Type Area Video Coordinator Device Identifier Shelf Expiration Date Model / Serial / Lot Shaft Fibula 6cm [id number] - [id number] Implanted:Qty: 1 on 09/05/2008 [place] [facility] Tissue - Human N/A: Spine Cervical MUSCULOSKELETAL TRANSPLANT FND 04/20/2010 [id number] / [id number] / Stent Eso Gw 22x70 10737-313 - [id number] Implanted:Qty: 1 on 01/21/2008 at [place] [facility] N/A: Esophagus ALVEOLUS INC 04/12/2009 79345-996 / / [id number] Depuy Uniplate 32 Implanted:Qty: 1 on 09/05/2008 at [place] [facility] N/A: Spine Cervical TAMMY & TAMMY DEPUY 302 / / Depuy Uniplate Screw 14mm Implanted:Qty: 2 on 09/05/2008 at [place] [facility] N/A: Spine Cervical TAMMY & TAMMY DEPUY 1896-07-017 / / Depuy Lordotic Bengal Cage Implanted:Qty: 1 on 05/07/2010 at [place] [facility] N/A: Neck 1773-06-146 / 1773-06-146 / Plate Zach 3 Level Ti 54mm - [id number] Implanted:Qty: 1 on 05/07/2010 at [place] [facility] N/A: Neck JNJ : DEPUY SPINE [id number] / / Screw Zach Const St Ti 14mm - [id number] Implanted:Qty: 4 on 05/07/2010 at [place] [facility] N/A: Neck JNJ : DEPUY SPINE [id number] / / Screw 3.5x14 Mntr Fa [id number] - [id number] Implanted:Qty: 8 on 05/07/2010 at [place] [facility] N/A: Spine Cervical JNJ : ETHICON CARDIOVATIONS [id number] / / Jarrell [id number] - [id number] Implanted:Qty: 1 on 05/07/2010 at [place] [facility] N/A: Spine Cervical JNJ : ETHICON CARDIOVATIONS [id number] / / Screw Inner Mntr [id number] - [id number] Implanted:Qty: 8 on 05/07/2010 at [place] [facility] N/A: Spine Cervical JNJ : ETHICON CARDIOVATIONS [id number] / / Envista Intraocular Lens Implanted:Qty: 1 on 03/10/2022 by Liang Marshall MD at OR [facility] Right: Eye BAUSCH & LOMB 08/13/2023 [id number] / [id number] / [id number] Envista Intraocular Lens Implanted:Qty: 1 on 03/24/2022 by Liang Marshall MD at OR [facility] Left: Eye BAUSCH & LOMB 07/13/2024 [id number] / [id number] / [id number] documented as of this encounter Visit Diagnoses Diagnosis Chronic atrial fibrillation (HCC) Atrial fibrillation Anorexia Weight loss Loss of weight documented in this encounter Advance Directives Documents on File Type Date Recorded Patient Model And Pattern Supervisor Expl anation POLST 01/26/2021 [place] [facility] [...] Power of Attor andrew? No Care Teams Iv Therapy Nurse Relationship Specialty Start Date End Date Jocelyne Desai DO [address] [place] [address] [place] [address] PCP - General Internal Medicine 11/09/16 documented as of this encounter
--- OUTSIDE RECORDS SUMMARY | 2023-10-21 16:38 | External Medical Summary | Summary of Care ---
Author Name Unknown Organization [facility] Address [address] [place] [address] Phone [phone] Care Team Providers Care Animal Attendant Name Role Phone Jocelyne Desai DO Primary Care Provider Reason for Visit * Reason Onset Date Comments Test Results 09/01/2023 Unexpected or In determinate Result Encounter Details Date Type Department Care Team (Late st Contact Info) Description 09/01/2023 Telephone Laboratory, [facility] [address] [place] [address] Jocelyne Desai DO [address] [place] [address] [place] [address] Test Results (Unexpected or Indeterminate ... Allergies No known active allergiesdocumented as of this encounter (statuses as of 09/03/2023) Medications Medication Sig Dispensed Refills Start Date [...] as of this encounter (statuses as of 09/03/2023) Active Problems Patient Care Coordination No te Formatting of this note migh t be different from the original. Good connectivity [facility] for wound care [phone] Televideo if needed. Problem Noted Date Diagnosed [...] up with podiatry,. Letter in chart from [facility] podiatry they were unable to get [...] ICD-10 update of inactive term PLATT RESEARCH OTHER*[id number] 02/20/2007 ADVANCE DIRECTIVE INFORMATION 01/19/2005 Overview: Yes, Patient instructed to provide copy of advance directive for provider to review and to be scanned into Electronic Medical Record No, Advance Directive brochure given to patient at prior appointment. SPINAL STENOSIS-LUMBAR 09/23/2002 Vitamin D deficiency Cervical spinal stenosis documented as of this encounter (statuses as of 09/03/2023) Resolved Problems Problem Noted Date Diagnosed Date [...] 11/17/19 23 LUMBAGO 12/24/2002 05/09/2007 LOC PRIM [id number] 12/24/200208/13 DEGENERATIVE SKIN DISORD 12/24/2002 VERTEBRAL FX [...] as of this encounter (statuses as of 09/03/2023) Immunizations Name Administration Dates Next Due COVID-19 [...] unexpected or indeterminate finding on Lg Cooley ([id number]) andasks that you review the following report. Study Type:CT CHEST WO CONTRAST Date of Study: 08/31/2023 IMPRESSION 1. An irregular 6 mm nodule in the left upper lobe. Follow-up CT recommended in 6 months for reassessment. Please respond to this encounter to acknowledge receipt of this message and take responsibility to ensure this report is reviewed. Thank you, MINERVA Ramirez Client Service [facility] documented in this encounter Plan of Treatment Upcoming Encounters Date Type Department Care Team (Latest Contact Info) Description 4 8:20 AM EDT Laboratory Laboratory, [facility] [address] [place] [phone] [facility] [address] [place] [address] 4 6:15 AM EDT Anticoagulation Centralized Clinical Pharmacy Services, [address] [place] [address] [facility], [address] [place] [address] 4 6:30 AM EDT Anticoagulation Centralized Clinical Pharmacy Services, [address] [place] [address] [place] [address] 4 8:52 AM EDT Hospital Encounter OR [facility], Operating Room, [facility] - 4th Floor [address] [place] [address] Amarilys Jaquez MD [address] [place] [address] 4 8:52 AM EDT - 4 9:28 AM EDT Surgery OR [facility], Operating Room, [facility] - 4th Floor [address] [place] [address] Amarilys Jaquez MD [address] [place] [address] ESOPHAGOGASTRODUODENOSCOPY (EGD), FLEXIBLE, TRANSORAL, DIAGNOSTIC 4 11:50 AM EDT Office [address] [address] [place] [address] 4 2:00 PM EDT Office Visit Nephrology [address] [place] [address] ZeMarycarmen alan PA-C [address] [place] [address] 4 9:00 AM EST Office Visit Gastroenterolo gy [address] [place] [address] Moon Avila CRNP [address] [place] [address] 5 12:30 PM EST Nurse Only Ancillary [address] [place] [address] [place], Nurse Annual [address] [place] [address] 5 2:30 PM EST Office Visit Family Medicine [address] [place] [phone] Jocelyne Desai[address] [place] [address] Scheduled Procedures Name Priority Associated Diagnoses Date/Ti [...] Additional history exists CKD HGB USE SMARTSET 98724 08/22/202408/22, 08/23/2023, 08/16/2023, Additional history exists CKD PHOS USE SMARTSET 93319 08/22/202408/13, 07/18/2023, 07/03/2023, Additional history exists DTaP,Tdap,and [...] encounter Medical Devices Implanted Type Area Creative Guru Device Identifier Shelf Expiration Date Model / Serial / Lot Shaft Fibula 6cm 899129 - [id number] Implanted:Qty: 1 on 09/05/2008 at [place] [facility] Tissue - Human N/A: Spine Cervical MUSCULOSKELETAL TRANSPLANT FND 04/20/2010 [id number] / [id number] 0P / Stent Eso Gw 22x70 17792-565 - [id number] Implanted:Qty: 1 on 01/21/2008 at OR [facility] N/A: Esophagus [employer]OLUS INC 04/12/2009 68408-002 / / [id number] Depuy Uniplate 32 Implanted:Qty: 1 on 09/05/2008 [...] Plate Zach 3 Level Ti 54mm - [id number] Implanted:Qty: 1 on 05/07/2010 at OR [facility] N/A: Neck JNJ : DEPUY SPINE [id number] 54 / / Screw Zach Const St Ti 14mm - [id number] Implanted:Qty: 4 on 05/07/2010 at [place] [facility] N/A: Neck JNJ : DEPUY SPINE 8760154 14 / / Screw 3.5x14 Mntr Fa [id number] - [id number] Implanted:Qty: 8 on 05/07/2010 at OR [facility] N/A: Spine Cervical JNJ : ETHICON CARDIOVATIONS [id number] / / Jarrell [id number] - [id number] Implanted:Qty: 1 on 05/07/2010 at [place] [facility] N/A: Spine Cervical JNJ : ETHICON CARDIOVATIONS [id number] / / Screw Inner Mntr [id number] - [id number] Implanted:Qty: 8 on 05/07/2010 at [place] [facility] N/A: Spine Cervical JNJ : ETHICON CARDIOVATIONS [id number] / / Envista Intraocular Lens Implanted:Qty: 1 on 03/10/2022 by Liang Marshall MD at OR [facility] Right: Eye BAUSCH & LOMB 08/13/2023 [id number] / [id number] / [id number] Envista Intraocular Lens Implanted:Qty: 1 on 03/24/2022 by Liang Marshall MD at OR [facility] Left: Eye BAUSCH & LOMB 07/13/2024 [id number] / [id number] / [id number] documented as of this encounter Advance Directives Documents on File Type Date Recorded Patient Hand Counter Expl anation POLST 01/26/2021 [place] OR [facility]-SU[facility]AINING TREATMENT * No Code [...] of Attor andrew? No Care Teams Animal Attendant Relationship Specialty Start Date End Date Jocelyne Desai DO [address] [place] [address] [place] [address] PCP - General Internal Medicine 11/09/16 documented as of this encounter
--- OUTSIDE RECORDS SUMMARY | 2023-10-21 16:38 | External Medical Summary | Summary of Care ---
Author Name Unknown Organization [facility] Address [address] [facility] [place] [address] Phone [phone] Care Team Providers Care Liquefaction Plant Operator Name Role Phone Jocelyne Desai Primary Care Provider [phone] Reason for Visit * Reason Onset Date Comments Test Results 08/30/2023 medication change 08/30/2023 Encounter Details Date Type Department Care Team (Late st Contact Info) Description 08/30/2023 Telephone Nephrology, Cely Zaldivar [address] [facility] [place] [address] Jennifer Agustin MD 200 [facility] [place] [address] Test Results; medication change (/) Allergies No known active allergiesdocumented as of [...] and 2 Tablets before bedtime. 08/30/2023 Active Potassium Chloride Candi ER 20 MEQ Oral Tablet Extended Release Take 1 Tablet by mouth in the morning and 1 Tablet before bedtime. 200 Tablet 3 07/25/2023 4 Discontinued documented as of this encounter (statuses as of 08/30/2023) Active Problems Patient Care Coordination No te Formatting of this note migh t be different from the original. Good connectivity [facility] for wound care [phone] Televideo if needed. Problem Noted Date Diagnosed [...] with podiatry,. Letter in chart from [facility] podiatry they were unable to [...] ICD-10 update of inactive term PLATT RESEARCH OTHER*[id number] 02/20/2007 ADVANCE DIRECTIVE INFORMATION 01/19/2005 Overview: Yes, [...] 11/17/19 23 LUMBAGO 12/24/2002 05/09/2007 LOC PRIM [id number] 12/24/200208/13 DEGENERATIVE SKIN DISORD 12/24/2002 VERTEBRAL FX [...] encounter Miscellaneous Notes * Telephone Encounter - Rachel Grimm RN - 08/30/2023 3:14 PM EDT Noted. Will place on for follow up next week. * Telephone Encounter - Marisela Peraza LPN - 08/30/2023 3:08 PM EDT Message sent to Waste Management Specialist regarding * Telephone Encounter - Marisela Peraza LPN - 08/30/2023 2:52 PM EDT Spoke with Pt Pt is currently taking Potassium 20meq 1 tablet bid and Torsemide 20 mg 1 bid as directed and listed on medication list Pt is advised to increase Potassium to 20 meq 2 tabs bid Pt verbalizes understanding States has enough Rx currently to do this Pt will continue Torsemide as directedPt will repeat labs in 5-7 days after making increase Pt requests lab requisition be mailed to his h ome as he will have home health draw next week Order placed in [facility] lab system and mailed to pt as he requested Medication list updated to changes made in dosing * Telephone Encounter - Marisela Peraza LPN - 08/30/2023 2:45 PM EDT ----- Message from Jennifer Agustin MD sent at 08/30/2023 12:06 PM EDT ----- Please insure he is taking torsemide and potassium per current medication list: Please verify doses. Assuming he is taking as prescribed, recommend increasing potassium to 40 mEq twice daily. Repeat basic metabolic panel after 5-7 days on this documented in this encounter Plan of Treatment Upcoming Encounters Date Type Department Care Team (Latest Contact Info) Description 4 8:45 AM EDT Imaging Radiology [facility] 1st [facility], [address] [place] [address] 4 6:15 AM EDT Anticoagulation Centralized Clinical Pharmacy Services, Ilya Lafleur [address] [place] [address] [place] [address] [place] [address] 4 8:52 AM EDT Hospital Encounter [facility], Operating Room, [facility] - 4th Floor [address] [place] [address] Amarilys Jaquez MD 310 [facility] [place] [address] 4 8:52 AM EDT - 4 9:28 AM EDT Surgery OR [facility], Operating Room, [facility] - 4th Floor [address] [place] [address] Amarilys Jaquez MD 310 [facility] [place] [address] ESOPHAGOGASTRODUODENOSCOPY (EGD), FLEXIBLE, TRANSORAL, DIAGNOSTIC 4 11:50 AM EDT Office Visit Family Medicine [address] [place] [address] [place] [address] 4 2:00 PM EDT Office Visit Nephrology [address] [place] [address] ZemaMarycarmen lindsey PA-C [address] [place] [address] 4 9:00 AM EST Office Visit Gastroenterolo gy [address] [place] [address] Moon Avila CRNP [address] [place] [address] 5 12:30 PM EST Nurse Only Ancillary [address] [place] [address] [place], Nurse [address] [place] [address] 2:30 PM EST Office Visit Family Medicine [address] [place] [phone] [address] [place] [address] Scheduled Orders Name Type Priority Associated Diagnoses Orde r Schedule BASIC METABOLIC PANEL Lab Routine Chronic kidney disease, stage 3b (HCC) Hypokalemia Expected: 08/30/2023 (Approximate), Expires: 08/29/2024 Scheduled Procedures Name Priority Associated Diagnoses Date/Ti [...] Additional history exists CKD HGB USE SMARTSET 49045 08/22/202408/22, 08/23/2023, 08/16/2023, Additional history exists CKD PHOS USE SMARTSET 10791 08/22/202408/13, 07/18/2023, 07/03/2023, Additional history exists DTaP,Tdap,and [...] this encounter Medical Devices Implanted Type Area Asbestos Brake Lining Finisher Helper Device Identifier Shelf Expiration Date Model / Serial / Lot Shaft Fibula 6cm [id number] - [id number] Implanted:Qty: 1 on 09/05/2008 at [place] [facility] [place] - Human N/A: Spine Cervical MUSCULOSKELETAL TRANSPLANT FND 04/20/2010 [id number] / [id number] / Stent Eso Gw 22x70 39360-992 - [id number] Implanted:Qty: 1 on 01/21/2008 at [place] [facility] [place] N/A: Esophagus ALVEOLUS INC 04/12/2009 07603-764 / / [id number] Depuy Uniplate 32 Implanted:Qty: 1 on 09/05/2008 at [place] [facility] [place] N/A: Spine Cervical TAMMY & TAMMY DEPUY 18908-14-302 / / Depuy Uniplate Screw 14mm Implanted:Qty: 2 on 09/05/2008 at [place] [facility] [place] N/A: Spine Cervical TAMMY & TAMMY DEPUY 1897-017 / / Depuy Lordotic Bengal Cage Implanted:Qty: 1 on 05/07/2010 at [place] [facility] [place] N/A: Neck 1773-06-146 / 1773-06-146 / Plate Zach 3 Level Ti 54mm - [id number] Implanted:Qty: 1 on 05/07/2010 at [place] [facility] [place] N/A: Neck JNJ : DEPUY SPINE [id number] / / Screw Zach Const St Ti 14mm - [id number] Implanted:Qty: 4 on 05/07/2010 at [place] [facility] [place] N/A: Neck JNJ : DEPUY SPINE [id number] 14 / / Screw 3.5x14 Mntr Fa [id number] - [id number] Implanted:Qty: 8 on 05/07/2010 at [place] [facility] [place] N/A: Spine Cervical JNJ : ETHICON CARDIOVATIONS [id number] / / Jarrell 3.9a348op [id number] - [id number] Implanted:Qty: 1 on 05/07/2010 at [place] [facility] [place] N/A: Spine Cervical JNJ : ETHICON CARDIOVATIONS [id number] / / Screw Inner Mntr [id number] - [id number] Implanted:Qty: 8 on 05/07/2010 at [place] [facility] [place] N/A: Spine Cervical JNJ : ETHICON CARDIOVATIONS [id number] / / Envista Intraocular Lens Implanted:Qty: 1 on 03/10/2022 by Liang Marshall MD at OR [facility] Right: Eye BAUSCH & LOMB 08/13/2023 [id number] / [id number] / [id number] Envista Intraocular Lens Implanted:Qty: 1 on 03/24/2022 by Liang Marshall MD at OR [facility] Left: Eye BAUSCH & LOMB 07/13/2024 [id number] / [id number] / [id number] documented as of this encounter Visit Diagnoses Diagnosis Chronic kidney disease, stage 3b (HCC)- Primary Hypokalemia Hypopotassemia Anorexia Weight loss Loss of weight documented in this encounter Advance Directives Documents on File Type Date Recorded Patient Enterprise Architect Manager Expl anation POLST 01/26/2021 [place] OR [facility] [...] Power of Attor andrew? No Care Teams Liquefaction Plant Operator Relationship Specialty Start Date End Date Jocelyne Desai DO [address] [place] [address] [place] [address] PCP - General Internal Medicine 11/09/16 documented as of this encounter
[2023-10-21] MEDS ORDERED: SODIUM CHLORIDE 0.9% 250 ML IV PRN (16:39)
--- NOTE | 2023-10-21 16:39 | Emergency Department Note ---
Impression & Plan Acute GI bleeding, Chronic anticoagulation, Dyspnea, Symptomatic anemia ED Provider Note NAME: RANI CHRISTIAN AGE: 73 SEX: M : 1950 ARRIVES VIA: Walk-In INFORMANT: Patient, ED PROVIDER(S): Jin Reza MD CHIEF COMPLAINT: Outpatient referral, low blood counts MEDICAL DECISION MAKING: Patient presents due to concern for low blood counts. IV was established and blood work was obtained. Patient was noted to have a hemoglobin of 6.8. The patient's white count is normal. Platelet count is unremarkable. Patient's INR is therapeutic at 2.1 we will hold any further Coumadin. Patient's creat of 4.2 which is higher than the patient's baseline. Patient's calcium 7.9. Hemoccult was positive so the patient was ordered Protonix bolus and drip and the patient was consented for 2 units of PRBCs. I did speak the on-call hospitalist service and the patient was admitted by Dr. Chow. Critical Care: I have personally spent 40 minutes of critical care time in direct management of this patient. This includes bedside care, interpretation of diagnostic studies, and testing, discussion with consultants, patient, and family members, and other require inpatient management activities. This 40 minutes is in excess of all separately billable procedures. Discussion w/ other healthcare providers: None Prior /Outside records reviewed: I reviewed part of a discharge summary from August 08, 2023. Known prior history of ischemic left MCA stroke A-fib on Coumadin type 2 diabetes hyperlipidemia CKD tachybradycardia syndrome status post PPM depression PAD stent patient had been referred at that time due to concern for wound care visit at [facility] [address]. Patient was being treated for cellulitis of the right leg. Differential diagnosis: Diverticulitis, AVM, coagulopathy, colitis, inflammatory bowel disease, malignancy, esophagitis, peptic ulcer disease, variceal bleed, gastritis, fissure, hemorrhoids, as well as other pathologies. Diagnostics, as interpreted by me: ECG: V paced rhythm, rate of 64 wide QRS, left axis deviation Q waves throughout. Cardiac monitoring: An order was placed for continuous cardiac monitoring. The monitor shows a rate of 67 with paced rhythm. Patient was placed on pulse oximetry Medical decision rules: None Imaging studies: None HPI: Patient presents due to concern for low blood counts. The patient reports that he was having some routine blood work checked as he does have a history of prior anemia. The patient never required a transfusion prior. Patient does take Coumadin for known history of A-fib and last took it last evening. Patient denies any bright red blood per rectum or dark tarry stools. The patient denies any falls or trauma. The patient does have chronic lower extremity wounds and does receive wound care 3 times a week with dressing changes and currently wears a wound VAC to the left heel. Patient states that the wounds been healing well. Patient has some associated shortness of breath no cough or fever. The patient does have chronic lower extremity edema. This is unchanged. Patient denies any abdominal pain nausea vomiting or diarrhea. Patient states that he was called about the results and he is unsure as whether not the hemoglobin was less than 6 or 6. PAST MEDICAL HISTORY: See Below PAST SURGICAL HISTORY: See Below SOCIAL HISTORY: See Below HOME MEDICATIONS: See Below ALLERGIES: See Below VITALS: See Below PHYSICAL EXAMINATION: GENERAL: NAD, non-toxic. EYE EXAM: Normal conjunctiva. PERRL, no anisocoria and EOM's grossly intact w/o pain. OROPHARYNX: Moist mucus membranes, grossly normal dentition. NECK: Trachea midline, no stridor. Supple, no nuchal rigidity, no adenopathy, non-tender. No signs of meningismus. FROM of the neck with good chin to chest and neck extension. LUNGS: Clear to auscultation. Normal chest wall mechanics. HEART: NSR, no MRG. ABDOMEN: Abdomen soft, non-tender, no masses, no rebound or guarding. BACK: No CVA TTP. SKIN: No rashes and no bruising. UPPER EXTREMITIES: Upper extremities are grossly normal. LOWER EXTREMITIES: Bilateral lower extremity swelling with compression stockings bilaterally. Dressings also in place bilaterally with wound VAC to the left foot. NEURO EXAM: A&O x3, cranial nerves II-XII grossly intact, normal speech, moves all 4 extremities. Past Med/Surg History Problem List (Updated 10/21/23 @ 18:53 by Jin Reza MD) Symptomatic anemia (Acute) Dyspnea (Acute) Chronic anticoagulation (Acute) Acute GI bleeding (Acute) GIB (gastrointestinal bleeding) Acute on chronic anemia Bacterial infection due to Pseudomonas Acute UTI (Acute) Leg pain, right Morbid obesity Cellulitis of leg, right (Acute) Pacemaker battery depletion Hx MRSA infection Cellulitis of right lower extremity Acute dyspnea (Acute) Acute exacerbation of CHF (congestive heart failure) (Acute) Non-ST elevation WV (NSTEMI) (Acute) Acute kidney injury superimposed on chronic kidney disease (Acute) Chronic osteomyelitis Traumatic open wound of lower leg Infected wound Status post partial amputation of foot Abdominal pannus Venous stasis ulcer of right lower leg with edema of right lower leg Chronic venous insufficiency of lower extremity (Chronic) Diabetic ulcer of toe (Acute) Diabetic ulcer of right foot (Acute) Spinal stenosis (Chronic) CHF (congestive heart failure) (Chronic) Diabetes type 2 with atherosclerosis of arteries of extremities Right hip pain Unsteady gait Personal history of diabetic foot ulcer Diabetic peripheral neuropathy associated with type 2 diabetes mellitus Diabetes type 2, controlled NIDDM Atrial fibrillation (Chronic) Peripheral arterial disease (Chronic) 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, 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 10/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, Right great toe amputation 07/2020 with revision 08/2020 Hypertension (Chronic) Chronic anemia CVA (cerebral vascular accident) 01/2018; residual right sided weakness Mixed sleep apnea No device (previous BIPAP) CKD (chronic kidney disease), stage III Dyslipidemia Pacemaker (Chronic) Left, normal single chamber pacemaker function with stable pacing and sensing thresholds per pacer check 12/08/20 [facility] Tachy-geronimo syndrome Medical History MRSA infection Hyperlipemia Essential hypertension 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 kidney disease Degenerative cervical spinal stenosis Degenerative lumbar spinal stenosis Proliferative diabetic retinopathy Venous insufficiency of both lower extremities Erectile dysfunction Nonalcoholic 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 (PLATT) 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 Hyperparathyroidism, secondary renal Esophageal obstruction Complex sleep apnea syndrome Vitamin B12 deficiency Persistent proteinuria Paroxysmal SVT (supraventricular tachycardia) Myocardial Infarction 2017 > medically managed CHF (congestive heart failure) Acute renal failure superimposed on stage 3 chronic kidney disease 08/2020 hospitalization, UTI and osteomyelitis, necrotizing fasciitis Depression Sepsis 2013 Surgical History History of amputation of lesser toe of right foot Hx of angioplasty Amputation toe Right great toe amputation (08/12/20): MAC at [facility] History of esophagogastroduodenoscopy (EGD) History of vascular surgery Left popliteal, 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 (10/2019) Right great toe I&D, revision amputation (08/21/20): MAC at [facility] History of hand surgery Tendon transfer Gastric bypass status for obesity Family History Brother Diabetes Mother Diabetes Father Diabetes Other Cancer Hypertension Social History Smoking Status: Former smoker Tobacco Type: Cigarettes Cigarettes Per Day: quit a long time ago; Second Hand Exposure: No; Do You Dip or Chew Tobacco: No; Hx Alcohol Use: No Hx Substance Use: No Preferred Language: Monegasque 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 Ability: Effective Visual Impairment: No Limitations Hearing Ability: Normal 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 current occupational status: retired How many Children do You have: 2 Feels Safe at Home: Yes Diet Comment: Educated to increase protein, vitamin c, d and zinc Assistive Devices: Bedside Commode, Denture - Upper, Glasses, Hospital Bed, Lift Chair and Walker Allergies Allergies Allergy/AdvReac Type Severity Reaction Status Date / Time No Known Allergies Allergy Verified 10/21/23 17:49 Home Meds Home Medications Medication Instructions Recorded Confirmed pediatric [id number] 1 tab PO PM ##0 04/11/13 10/21/23 (Flintstones Complete (iron) chewable tablet) atorvastatin 40 mg tablet 40 mg PO PM #0 tabs 01/08/17 10/21/23 cholecalciferol (vitamin D3) 25 2,000 unit PO PM 10/18/17 10/21/23 mcg (1,000 unit) capsule (Vitamin D3) cyanocobalamin (vitamin B-12) 1,000 mcg PO PM 05/06/19 10/21/23 1,000 mcg tablet tamsulosin 0.4 mg capsule 0.4 mg PO PM 05/06/19 10/21/23 magnesium oxide 400 mg PO QAM 09/26/19 10/21/23 acetaminophen 500 mg tablet 1,000 mg PO Q6H PRN Pain 12/17/20 10/21/23 aspirin 81 mg tablet 81 mg PO DAILY 12/21/20 10/21/23 warfarin 3 mg tablet See Rx Instructions .Route .COMPLEX 10/07/22 10/21/23 potassium chloride 20 mEq 0 meq PO QAM 08/01/23 10/21/23 tablet,extended release(part/cryst) cyclobenzaprine 10 mg tablet 10 mg PO Q8H PRN Muscle Spasms 10/21/23 10/21/23 oxycodone 5 mg tablet 5 mg PO Q6H PRN Pain 10/21/23 10/21/23 torsemide 20 mg tablet 20 mg PO BID 10/21/23 10/21/23 Previous Rx's Medication Instructions Recorded metoprolol succinate 25 mg 25 mg PO QAM #30 tabs 10/16/22 tablet,extended release 24 hr midodrine 2.5 mg tablet 2.5 mg PO TID@0800,1200,1700 #90 06/27/23 tabs L.acidop,casei,lactis,rham-B.lact,scot 1 cap PO DAILY #30 caps 08/07/23 625 mg (10 billion cell) capsule (Advanced Probiotic) Results & Data (ED) Vital Signs Vital Signs - 24 hr 10/21/23 16:30 10/21/23 16:49 10/21/23 16:56 Temperature 36.2 C L Temperature Source Temporal Artery Scan Pulse Rate 75 69 67 Respiratory Rate 20 Respiratory Effort / Characteristics Non-Labored Spontaneous Respiratory Depth Normal Respiratory Pattern Regular Blood Pressure 125/68 Blood Pressure Mean 87 Pulse Oximetry 100 100 Oxygen Delivery Method Room Air Room Air Sepsis Recent Fever Within 48 Hours No Sepsis New/Unexplained Change in Mental Status N/A Sepsis Action Taken by Nursing No Action Required Home Medications Current Medication List: was personally reviewed by me Laboratory Data Attestation: I reviewed the patient's lab results. 10/21/23 16:43 10/21/23 16:43 Lab Results 10/21/23 10/21/23 10/21/23 Range/Units 16:43 16:55 17:00 WBC 5.33 (4.8-10.8) K/ul RBC 2.56 L (4.70-6.10) M/uL Hgb 6.8 L* (14.0-18.0) g/dl Hct 22.7 L (42.0-52.0) % MCV 88.7 (80.0-100.0) fL MCH 26.6 (25.0-34.0) pg MCHC 30.0 L (32.0-36.0) g/dL RDW Std Deviation 62.4 H (36.4-46.3) fL RDW Coeff of Jason 19.3 H (11.5-14.5) % Plt Count 225 (130-400) K/uL MPV 10.3 (9.4-12.4) fL Immature Gran % (Auto) 0.4 % Neut % (Auto) 78.9 % Lymph % (Auto) 12.0 % Hall % (Auto) 7.9 % Eos % (Auto) 0.6 % Baso % (Auto) 0.2 % Neut # (Auto) 4.21 (1.40-6.50) K/uL Lymph # (Auto) 0.64 L (1.20-3.40) K/uL Hall # (Auto) 0.42 (0.11-0.59) K/uL Eos # (Auto) 0.03 (0.00-0.50) K/uL Baso # (Auto) 0.01 (0.00-0.20) K/uL Immature Gran # (Auto) 0.02 (0.01-0.20) K/uL Polychromasia 1+ PT 21.2 H (9.0-12.0) Seconds INR 2.1 H (0.9-1.1) APTT 33 H (21-31) Seconds PTT Ratio 1.2 Sodium 136 (136-145) mmol/L Potassium 4.7 (3.5-5.1) mmol/L Chloride 108 H (98-107) mmol/L Carbon Dioxide 18 L (21-32) mmol/L Anion Gap 10 (3-11) BUN 85 H (6-23) mg/dl Creatinine 4.26 H (0.6-1.4) mg/dl Est Cr Clr Drug Dosing 16.6 ml/min Est GFR ( Amer) 15.2 ml/min Est GFR (Non-Af Amer) 13.1 ml/min BUN/Creatinine Ratio 20.0 (10-20) Glucose 99 (70-99(Fasting)) mg/dl Calcium 7.9 L (8.6-10.3) mg/dl Total Bilirubin 0.3 (0.2-1.0) mg/dl AST 20 (13-39) U/L ALT 20 (7-52) U/L Alkaline Phosphatase 60 (34-104) U/L Total Protein 7.2 (6.0-8.3) gm/dl Albumin 3.7 (3.4-5.0) gm/dl Globulin 3.5 (2.5-4.0) gm/dl Albumin/Globulin Ratio 1.1 (0.9-2) POC Stool Occult Blood Positive A (Negative) Blood Type AB Positive Blood Type Recheck AB Positive Antibody Screen NEGATIVE Crossmatch See Detail Administered Medications Pantoprazole Sodium 40 mg/ (Dextrose) 100 mls @ 20 mls/hr IV Q5H COOKIE Stop: 11/20/23 17:14 Last Admin: 10/21/23 18:12 Dose: 8 mg/hr, 20 mls/hr Documented By: DANG Discontinued Medications Pantoprazole Sodium 80 mg/ (Dextrose) 120 mls @ 480 mls/hr IV NOW ONE Stop: 10/21/23 17:08 Last Infusion: 10/21/23 18:05 Dose: Infused Documented By: Admin: 10/21/23 17:50 Dose: 480 mls/hr Documented By: MICHEL Pantoprazole Sodium (Pantoprazole Bolus/Drip) 1 each IV NOW STA Stop: 10/21/23 16:55 Last Admin: 10/21/23 18:13 Dose: Not Given Documented By: [facility] Discharge Plan Visit Data Chief Complaint: Abnormal Labs/Diagnostic Testing Stated Complaint: LOW BLOOD COUNT ED Provider: Jin Reza Discharge Problem: Acute GI bleeding, Chronic anticoagulation, Dyspnea, Symptomatic anemia Discharge Instructions Interventions: ED Discharge Assessment Last Done: 10/21/23 18:34 Discharge Problem: Dyspnea Qualifiers: Dyspnea type: unspecified Qualified Code(s): R06.00 - Dyspnea, unspecified
--- OUTSIDE RECORDS SUMMARY | 2023-10-21 16:39 | External Medical Summary | Summary of Care ---
Author Name Unknown Organization [facility] Address [address] [facility] [place] [address] Phone [phone] Care Team Providers Care Director Of Product Management Name Role Phone Jocelyne Desai DO Primary Care Provider [phone] Reason for Visit * Reason Onset Date Comments Appointment 08/29/2023 Upper endoscopy Encounter Details Date Type Department Care Team (Late st Contact Info) Description 08/29/2023 Telephone Family Medicine [address] [place] [phone] Jocelyne Desai DO [address] [place] [address] [place] [address] Appointment (Upper endoscopy ) Allergies No known active allergiesdocumented as of this encounter (statuses as of 08/29/2023) Medications Medication Sig Dispensed Refills Start Date [...] as of this encounter (statuses as of 08/29/2023) Active Problems Patient Care Coordination No te Formatting of this note migh t be different from the original. Good connectivity [facility] for wound care [phone] Televideo if needed. 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 SPINAL STENOSIS-LUMBAR 09/23/2002 Vitamin D deficiency Cervical spinal stenosis documented as of this encounter (statuses as of 08/29/2023) Resolved Problems Problem Noted Date Diagnosed Date [...] 11/17/19 23 LUMBAGO 12/24/2002 05/09/2007 LOC PRIM [id number] 12/24/200208/13 DEGENERATIVE SKIN DISORD 12/24/2002 VERTEBRAL FX [...] as of this encounter (statuses as of 08/29/2023) Immunizations Name Administration Dates Next Due COVID-19 [...] Encounter - Amanda Hayden OSA - 08/29/2023 11:24 AM EDT Rich needs scheduled for an upper endoscopy for: Recent unexplained weight loss [R63.4] - Primary Anorexia [R63.0] documented in this encounter Plan of Treatment Upcoming Encounters Date Type Department Care Team (Late st Contact Info) Description 08/31/2023 8:45 AM EDT Imaging Radiology [address] [place] [address] 09/05/2023 6:30 AM EDT Anticoagulation Centralized Clinical Pharmacy Services, Ilya Lafleur [address] [place] [address] [place] [address] [facility], [address] [place] [address] 09/27/2023 11:50 AM EDT Office Visit Family [address] [place] [phone] Jocelyne Desai[address] [place] [address] 11/20/2023 2:00 PM EDT Office Visit Nephrology [address] [place] [address] ZeMarycarmen alan PA-C [address] [place] [address] 01/19/2024 9:00 AM EST Office Visit Gastroenterology [address] [place] [address] Moon Avila CRNP [address] [place] [address] 02/20/2024 12:30 PM EST Nurse Only Ancillary [address] [place] [address] [place], Nurse [address] [place] [address] 03/08/2024 2:30 PM EST Office Visit Family Medicine [address] [place] [phone] Jocelyne Desai[address] [place] [address] Scheduled Procedures Name Priority Associated Diagnoses Date/Ti [...] exists Depression Screening 02/17/2024 02/16/2023 GFR 02/23/2024 08/23/2023, 07/14, 07/26/2023, Additional history exists HbA1c 02/23/2024 08/23/2023, 05/2022, 11/09/2022, Additional history exists Albumin/Creatinine Ratio 07/17/2024 024, 11/16/2022, 05/13/2022, Additional history exists CKD HGB USE SMARTSET 53641 08/22/202408/22, 08/23/2023, 08/16/2023, Additional history exists CKD PHOS USE SMARTSET 09230 08/22/202408/13, 07/18/2023, 07/03/2023, Additional history exists DTaP,Tdap,and [...] this encounter Medical Devices Implanted Type Area Animal Pathologist Device Identifier Shelf Expiration Date Model / Serial / Lot Shaft Fibula 6cm [id number] - [id number] Implanted:Qty: 1 on 09/05/2008 at OR [facility] Tissue - Human N/A: Spine Cervical MUSCULOSKELETAL TRANSPLANT FND 04/20/2010 [id number] / [id number] 0P / Stent Eso Gw 22x70 01181-687 - [id number] Implanted:Qty: 1 on 01/21/2008 at OR [facility] N/A: Esophagus ALVEOLUS INC 04/12/2009 92437-280 / / [id number] Depuy Uniplate 32 Implanted:Qty: 1 on 09/05/2008 [...] Plate Zach 3 Level Ti 54mm - [id number] Implanted:Qty: 1 on 05/07/2010 at OR [facility] N/A: Neck JNJ : DEPUY SPINE [id number] / / Screw Zach Const St Ti 14mm - [id number] Implanted:Qty: 4 on 05/07/2010 at OR [facility] N/A: Neck JNJ : DEPUY SPINE [id number] 14 / / Screw 3.5x14 Mntr Fa [id number] - [id number] Implanted:Qty: 8 on 05/07/2010 at OR [facility] N/A: Spine Cervical JNJ : ETHICON CARDIOVATIONS [id number] / / Jarrell [id number] - [id number] Implanted:Qty: 1 on 05/07/2010 at OR [facility] N/A: Spine Cervical JNJ : ETHICON CARDIOVATIONS [id number] / / Screw [facility] [id number] - [id number] Implanted:Qty: 8 on 05/07/2010 at OR [facility] N/A: Spine Cervical JNJ : ETHICON CARDIOVATIONS [id number] / / Envista Intraocular Lens Implanted:Qty: 1 on 03/10/2022 by Liang Marshall MD at OR [facility] Right: Eye BAUSCH & LOMB 08/13/2023 [id number] / [id number] / [id number] Envista Intraocular Lens Implanted:Qty: 1 on 03/24/2022 by Linag Marshall MD at OR [facility] Left: Eye BAUSCH & LOMB 07/13/2024 [id number] / [id number] / [id number] documented as of this encounter Advance Directives Documents on File Type Date Recorded 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 No Care Teams Director Of Product Management Relationship Specialty Start Date End Date Jocelyne Desai DO [address] [place] [address] [place] [address] PCP - General Internal Medicine 11/09/16 documented as of this encounter
--- OUTSIDE RECORDS SUMMARY | 2023-10-21 16:39 | External Medical Summary | Summary of Care ---
Author Name Unknown Organization [facility] Address [address] [facility] [place] [address] Phone [phone] Care Team Providers Care Paper Hanger Name Role Phone Jocelyne Desai Primary Care Provider [phone] Reason for Visit * Reason Onset Date Comments Test Results 08/25/2023 Encounter Details Date Type Department Care Team (Late st Contact Info) Description 08/25/2023 Telephone Nephrology, Cely Zaldivar [address] [facility] [place] [address] Jennifer Agustin MD [address] [facility] [place] [address] Test Results Allergies No known active allergiesdocumented as of this encounter (statuses as of 08/25/2023) Medications Medication Sig Dispensed Refills Start Date [...] and 1 Tablet before bedtime. 08/25/2023 Active Torsemide 20 MG Oral Tablet (Demadex) Take 2 Tablets by mouth in the morning and 2 Tablets before bedtime. 400 Tablet 07/26/2023 4 Discontinued documented as of this encounter (statuses as of 08/25/2023) Active Problems Patient Care Coordination No te Formatting of this note migh t be different from the original. Good connectivity [facility] for wound care [phone] Televideo if needed. 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 He has significant history DM and PVD and recommended he still follow up with podiatry,. Letter in chart from [facility] podiatry they were unable to get [...] ICD-10 update of inactive term PLATT RESEARCH OTHER*[id number] 02/20/2007 ADVANCE DIRECTIVE INFORMATION 01/19/2005 Overview: Yes, Patient instructed to provide copy of advance directive for provider to review and to be scanned into Electronic Medical Record No, Advance Directive brochure given to patient at prior appointment. SPINAL STENOSIS-LUMBAR 09/23/2002 Vitamin D deficiency Cervical spinal stenosis documented as of this encounter (statuses as of 08/25/2023) Resolved Problems Problem Noted Date Diagnosed Date Resolved Date Depression, unspecified 11/09/2021 03/2 Depression, unspecified 11/09/202105/2022 Cellulitis of right leg 07/13/202105/2022 Last Assessment & Plan: Suspect this could be early/localized. Will treat with 7 days antibiotic. If pt cannot be reassess by Dr. Braxton office early next week will need [facility] provider recheck Multiple and open [...] 11/17/19 23 LUMBAGO 12/24/2002 05/09/2007 LOC PRIM [id number] 12/24/200208/13 DEGENERATIVE SKIN DISORD 12/24/2002 VERTEBRAL FX [...] as of this encounter (statuses as of 08/25/2023) Immunizations Name Administration Dates Next Due COVID-19 [...] Does the household have a [facility] source [facility] income? (Household - for [...] Telephone Encounter - Libby Hurd RN - 08/25/2023 4:35 PM EDT Forwarded to case management. Medications discussed with pt. He was able to repeat back to take 1 torsemide twice daily and continue potassium. HE is aware to complete daily weights and record them. * Telephone Encounter - Libby Hurd RN - 08/25/2023 4:32 PM EDT ----- Message from Jennifer Agustin MD sent at 08/25/2023 4:31 PM EDT ----- Markedly worse kidney function and low potassium in a patient on high dose torsemide, midodrine, high-dose potassium supplements. -lower torsemide from 40 mg twice daily to 20 mg twice daily -very important that he weigh himself through the weekend and early next week colon this was discussed with Case Management earlier this week -continue current potassium dose -repeat basic metabolic panel on MondayAugust 27 -renal nurse please forward this to his case resource manager as well and ask that worsen to report back weights on Monday Dr. Lloyd BANERJEE; my Ge[employer] 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ser sent nephro nurse please update labs and touch base with patient documented in this encounter Plan of Treatment Upcoming Encounters Date Type Department Care Team (Late st Contact Info) Description 08/29/2023 6:30 AM EDT Anticoagulation Centralized Clinical Pharmacy Services, Ilya Lafleur [address] [place] [address] [place] [address] [place] [address] 09/27/2023 11:50 AM EDT Office Visit Family Medicine [address] [place] [phone] Jocelyne Desai[address] [place] [address] 11/20/2023 2:00 PM EDT Office Visit Nephrology [address] [place] [address] Marycarmen Kowalski PA-C [address] [place] [address] [place] [address] 02/20/2024 12:30 PM EST Nurse Only Ancillary [address] [place] [address] [place], Nurse [address] [place] [address] 03/08/2024 2:30 PM EST Office Visit Family Medicine [address] [place] [phone] [address] [place] [address] Scheduled Orders Name Type Priority Associated Diagnoses Orde r Schedule BASIC METABOLIC PANEL Lab Routine 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 kidney disease (HCC) Expected: 08/28/2023, Expires: 08/24/2024 Scheduled Procedures Name Priority Associated Diagnoses Date/Ti [...] 05/2022, 11/09/2022, Additional history exists Albumin/Creatinine Ratio 07/17/202407/17/2 024, 11/16/2022, 05/13/2022, Additional history exists CKD HGB USE SMARTSET 20889 08/22/202408/22, 08/23/2023, 08/16/2023, Additional history exists CKD PHOS USE SMARTSET 82073 08/22/202408/13, 07/18/2023, 07/03/2023, Additional history exists DTaP,Tdap,and [...] this encounter Medical Devices Implanted Type Area Die Set Up Worker Device Identifier Shelf Expiration Date Model / Serial / Lot Shaft Fibula 6cm [id number] - [id number] Implanted:Qty: 1 on 09/05/2008 at OR [facility] Tissue - Human N/A: Spine Cervical MUSCULOSKELETAL TRANSPLANT FND 04/20/2010 [id number] / [id number] 0P / Stent Eso Gw 22x70 80552-499 - [id number] Implanted:Qty: 1 on 01/21/2008 at OR [facility] [facility] N/A: Esophagus AL[employer]OLUS INC 04/12/2009 30990-559 / / [id number] Depuy Uniplate 32 Implanted:Qty: 1 on 09/05/2008 [...] Plate Zach 3 Level Ti 54mm - [id number] Implanted:Qty: 1 on 05/07/2010 at OR [facility] N/A: Neck JNJ : DEPUY SPINE [id number] 54 / / Screw Zach Const St Ti 14mm - [id number] Implanted:Qty: 4 on 05/07/2010 at OR [facility] N/A: Neck JNJ : DEPUY SPINE [id number] 14 / / Screw 3.5x14 Mntr Fa [id number] - [id number] Implanted:Qty: 8 on 05/07/2010 at OR [facility] [place] N/A: Spine Cervical JNJ : ETHICON CARDIOVATIONS [id number] / / Jarrell [id number] - [id number] Implanted:Qty: 1 on 05/07/2010 at OR [facility] N/A: Spine Cervical JNJ : ETHICON CARDIOVATIONS [id number] / / Screw Inner Mntr [id number] - [id number] Implanted:Qty: 8 on 05/07/2010 at OR [facility] N/A: Spine Cervical JNJ : ETHICON CARDIOVATIONS [id number] / / Envista Intraocular Lens Implanted:Qty: 1 on 03/10/2022 by Liang Marshall MD at OR [facility] Right: Eye BAUSCH & LOMB 08/13/2023 [id number] / [id number] / [id number] Envista Intraocular Lens Implanted:Qty: 1 on 03/24/2022 by Liang Marshall MD at OR [facility] Left: Eye BAUSCH & LOMB 07/13/2024 [id number] / [id number] / [id number] documented as of this encounter Visit Diagnoses Diagnosis 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 kidney disease (HCC)- Primary documented in this encounter Advance Directives Documents on File Type Date Recorded 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 No Care Teams Paper Hanger Relationship Specialty Start Date End Date Jocelyne Desai DO [address] [place] [address] [place] [address] PCP - General Internal Medicine 11/09/16 documented as of this encounter
--- OUTSIDE RECORDS SUMMARY | 2023-10-21 16:39 | External Medical Summary | Summary of Care ---
Author Name Unknown Organization [facility] Address [address] [place] [address] Phone [phone] Care Team Providers Care Spooler Rubber Strand Name Role Phone Jocelyne Desai Primary Care Provider [phone] Encounter Details Date Type Department Care Team (Late st Contact Info) Description 08/28/2023 1:45 PM EDT Scheduled Telephone Care Coordination and Integration [address] [place], [place] [phone] Estefania Jaquez, Community Health Thread Twister [address] [place] [address] Allergies No known active allergiesdocumented as of this encounter (statuses as of 08/28/2023) Medications Medication Sig Dispensed Refills Start Date [...] as of this encounter (statuses as of 08/28/2023) Active Problems Patient Care Coordination No te Formatting of this note migh t be different from the original. Good connectivity [facility] for wound care [phone] Televideo if needed. Problem Noted Date Diagnosed [...] Letter in chart from [facility] podiatry they were unable to get [...] ICD-10 update of inactive term PLATT RESEARCH OTHER*[id number] 02/20/2007 ADVANCE DIRECTIVE INFORMATION 01/19/2005 Overview: Yes, Patient instructed to provide copy of advance directive for provider to review and to be scanned into Electronic Medical Record No, Advance Directive brochure given to patient at prior appointment. SPINAL STENOSIS-LUMBAR 09/23/2002 Vitamin D deficiency Cervical spinal stenosis documented as of this encounter (statuses as of 08/28/2023) Resolved Problems Problem Noted Date Diagnosed Date Resolved Date Depression, unspecified 11/09/2021 03/2 Depression, unspecified 11/09/202105/2022 Cellulitis of right leg 07/13/202105/2022 Last Assessment & Plan: Suspect this could be early/localized. Will treat with 7 days antibiotic. If pt cannot be reassess by Dr. Braxton office early next week will need [facility] provider recheck Multiple and open [...] 11/17/19 23 LUMBAGO 12/24/2002 05/09/2007 LOC PRIM [id number] 12/24/200208/13 DEGENERATIVE SKIN DISORD 12/24/2002 VERTEBRAL FX [...] as of this encounter (statuses as of 08/28/2023) Immunizations Name Administration Dates Next Due COVID-19 mRNA, LNP-s, No Pre serve, 2-Dose Series (Moderna) 03/19/2020 COVID-19 mRNA, LNP-s, No Pre serve, 2-Dose Series (Pfizer) 02/16/2021,04/09/2020,03/19/2020 COVID-19, MRNA-LNP, 23-24, P F, 30 MCG/0.3 mL, 12 YRS AND ABOVE, IM (b5media-Comirnaty) 11/16/2022 Covid-19, Mrna, Lnp-s, Pf, B ivalent, [...] Progress Notes * Estefania Jaquez, Community Health Thread Twister - 08/28/2023 2:13 PM EDT Telemedicine visit: No Community Health Thread Twister (KELLY) documentation: CHW placed #2 f/u PC to patient Patient reported that someone had just called him around noon today and asked him the same questions. He did not know who it was. Patient reported that he is still wearing the wound vac and it is still infected. The nurse was there to take care of it today. He had a wound clinic appointment this Monday as well. CHW asked about s/s of infection. He is not taking a antibiotic. No fevers or redness or drainage. He is still having shortness of breath, but not worsening. CHW explained that CHW would be following up with patient the next two weeks and if he had any concerns or questions to reachout to CM at the [facility]. Estefania Jaquez- Community Health Worker 1 Support Services/[facility] [employer] [email or web address] documented in this encounter Plan of Treatment Upcoming Encounters Date Type Department Care Team (Late st Contact Info) Description 08/29/2023 6:30 AM EDT Anticoagulation Centralized Clinical Pharmacy Services, Ilya Lafleur [address] [place] [address] [place] [address] [facility], [address] [place] [address] 09/27/2023 11:50 AM EDT Office Visit Family [address] [phone] Jocelyne Desai [address] [place] [address] 11/20/2023 2:00 PM EDT Office Visit Nephrology [address] [place] [address] ZeMarycarmen alan PA-C [address] [place] [address] 02/20/2024 12:30 PM EST Nurse Only Ancillary [address] [place] [address] [place], Nurse [address] [place] [address] 03/08/2024 2:30 PM EST Office Visit Family Medicine [address] [place] [phone] Jocelyne Desai [address] [place] [address] Scheduled Procedures Name Priority Associated Diagnoses Date/Ti [...] Additional history exists CKD HGB USE SMARTSET 03743 08/22/202408/22, 08/23/2023, 08/16/2023, Additional history exists CKD PHOS USE SMARTSET 98491 08/22/202408/13, 07/18/2023, 07/03/2023, Additional history exists DTaP,Tdap,and [...] this encounter Medical Devices Implanted Type Area Coke Production Heater Device Identifier Shelf Expiration Date Model / Serial / Lot Shaft Fibula 6cm [id number] - [id number] Implanted:Qty: 1 on 09/05/2008 at OR [facility] Tissue - Human N/A: Spine Cervical MUSCULOSKELETAL TRANSPLANT FND 04/20/2010 [id number] / [id number] 0P / Stent Eso Gw 22x70 [id number] - [id number] Implanted:Qty: 1 on 01/21/2008 at OR [facility] N/A: Esophagus ALVEOLUS INC 04/12/2009 16475-587 / / [id number] Depuy Uniplate 32 Implanted:Qty: 1 on 09/05/2008 at OR [facility] N/A: Spine Cervical TAMMY & TAMMY DEPUY 1897-02-302 / / Depuy Uniplate Screw 14mm Implanted:Qty: 2 on 09/05/2008 at OR [facility] N/A: Spine Cervical TAMMY & TAMMY DEPUY 1897-06-017 / / Depuy Lordotic Bengal Cage Implanted:Qty: 1 on 05/07/2010 at OR [facility] N/A: Neck 1773-06-146 / 1773-06-146 / Plate Zach 3 Level Ti 54mm - [id number] Implanted:Qty: 1 on 05/07/2010 at OR [facility] N/A: Neck JNJ : DEPUY SPINE [id number] / / Screw Zach Const St Ti 14mm - [id number] Implanted:Qty: 4 on 05/07/2010 at OR [facility] N/A: Neck JNJ : DEPUY SPINE [id number] 14 / / Screw 3.5x14 Mntr Fa [id number] - [id number] Implanted:Qty: 8 on 05/07/2010 at OR [facility] N/A: Spine Cervical JNJ : ETHICON CARDIOVATIONS [id number] / / Jarrell [id number] - [id number] Implanted:Qty: 1 on 05/07/2010 at OR [facility] N/A: Spine Cervical JNJ : ETHICON CARDIOVATIONS [id number] / / Screw Inner Mntr [id number] - [id number] Implanted:Qty: 8 on 05/07/2010 at OR [facility] N/A: Spine Cervical JNJ : ETHICON CARDIOVATIONS [id number] / / Envista Intraocular Lens Implanted:Qty: 1 on 03/10/2022 by Liang Marshall MD at OR [facility] Right: Eye BAUSCH & LOMB 08/13/2023 [id number] / [id number] / [id number] Envista Intraocular Lens Implanted:Qty: 1 on 03/24/2022 by Liang Marshall MD at OR [facility] Left: Eye BAUSCH & LOMB 07/13/2024 [id number] / [id number] / [id number] documented as of this encounter Advance Directives Documents on File Type Date Recorded 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 No Care Teams Spooler Rubber Strand Relationship Specialty Start Date End Date Jocelyne Desai DO [address] [place] [address] [place] [address] PCP - General Internal Medicine 11/09/16 documented as of this encounter
--- OUTSIDE RECORDS SUMMARY | 2023-10-21 16:39 | External Medical Summary | Summary of Care ---
Author Name Unknown Organization [facility] Address [address] [facility] [place] [address] Phone [phone] Care Team Providers Care Director Of Contracts Name Role Phone Desai Jocelyne Briggs Primary Care Provider + [phone] Reason for Visit * Reason Comments Outpatient Testing Encounter Details Date Type Department Care Team (Late st Contact Info) Description 08/23/2023 12:40 PM EDT Laboratory Laboratory [address] [place] [phone] [place] [address] HTN, goal below 140/90; JORGE (acute kidney injury) (HCC); Chronic kidney disease, unspecified CKD stage; 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 kidney disease (HCC); Stage 3b chronic kidney disease (HCC); Loss of weight; Hypomagnesemia; Type 2 diabetes mellitus with hemoglobin A1c goal of less than 7.5% ([facility]) Allergies No known active allergiesdocumented as of this encounter (statuses as of 08/23/2023) Medications Medication Sig Dispensed Refills Start Date [...] Tablets before bedtime. 400 Tablet 07/26/2023 Active Aspirin 81 MG Oral Tablet Chewable Take 1 Tablet by mouth in the morning. with food.. 08/23/2023 Active documented as of this encounter (statuses as of 08/23/2023) Active Problems Patient Care Coordination No te Formatting of this note migh t be different from the original. Good connectivity [facility] for wound care [phone] Televideo if needed. 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 He has significant history DM and PVD and recommended he still follow up with podiatry,. Letter in chart from [facility] podiatry they were unable to [...] ICD-10 update of inactive term PLATT RESEARCH OTHER*[id number] 02/20/2007 ADVANCE DIRECTIVE INFORMATION 01/19/2005 Overview: Yes, Patient instructed to provide copy of advance directive for provider to review and to be scanned into Electronic Medical Record No, Advance Directive brochure given to patient at prior appointment. SPINAL STENOSIS-LUMBAR 09/23/2002 Vitamin D deficiency Cervical spinal stenosis documented as of this encounter (statuses as of 08/23/2023) Resolved Problems Problem Noted Date Diagnosed Date [...] 11/17/19 23 LUMBAGO 12/24/2002 05/09/2007 LOC PRIM [id number] 12/24/200208/13 DEGENERATIVE SKIN DISORD 12/24/2002 VERTEBRAL FX [...] as of this encounter (statuses as of 08/23/2023) Immunizations Name Administration Dates Next Due COVID-19 [...] No 02/16/2023 Does the household have a socorro general hospitallar source of income? (Household - [...] Contact Info) Description 08/29/2023 6:30 AM EDT [facility] Clinical Pharmacy Services, Ilya Lafleur [address] [place] [address] [place] [address] [place] [address] 08/30/2023 1:45 PM EDT Imaging Radiology [facility] [place] [address] [place] [address] 09/27/2023 11:50 AM EDT Office Visit Family [address] [place] [phone] [address] Des[address] [place] [address] 11/20/2023 2:00 PM EDT Office Visit Nephrology [address] [place] [address] Maryacrmen Kowalski PA-C [address] [place] [address] 02/20/2024 12:30 PM EST Nurse Only Ancillary [address] [place] [address] [place], Nurse Annual [address] [place] [address] 03/08/2024 2:30 PM EST Office Visit Family [address] [place] [phone] Jocelyne Desai[address] [place] [address] Pending Results Name Type Priority Associated Diagnoses Date /Time COMPREHENSIVE METABOLIC PANEL Lab Routine Loss of weight 08/23/2023 12:46 PM EDT MAGNESIUM Lab Routine Hypomagnesemia 08/23/2023 12:46 PM EDT HEMOGLOBIN A1C Lab Routine Type 2 diabetes mellitus with hemoglobin A1c goal of less than 7.5% ([facility]) 08/23/2023 12:46 PM EDT CBC WITH WBC DIFFERENTIAL AND ANEMIA REFLEX WORKUP Lab Routine Loss of weight 08/23/2023 12:46 PM EDT PSA Lab Routine Loss of weight 08/23/2023 12:46 PM EDT TSH WITH FREE T4 IF INDICATED Lab Routine Loss of weight 08/23/2023 12:46 PM EDT ANEMIA CBC Lab Routine Loss of weight 08/23/2023 12:46 PM EDT DIFFERENTIAL, AUTOMATED Lab Routine Loss of weight 08/23/2023 12:46 PM EDT ANEMIA REFLEX CHEMISTRY HOLD Lab Routine Loss of weight 08/23/2023 12:46 PM EDT PHOSPHORUS Lab Routine HTN, goal below 140/90 JORGE (acute kidney injury) (HCC) Chronic kidney disease, unspecified CKD stage 08/23/2023 12:46 PM EDT Scheduled Procedures Name Priority Associated [...] 05/18/2023 11/16/2022, 10/15, 05/13/2022, Additional history exists Influenza Vaccine (FLU shot) (#1) 2023 11/16/2022, 11/09/2021, 10/16/2020, Additional history exists Diabetic Foot Exam 11/17/2023 11/16/2022, 0 05/05/2021, 11/22/2017, Additional history exists GFR 01/30/2024 07/31/2023, 07/14, 07/18/2023, Additional history exists Depression Screening 02/17/2024 02/16/2023 Albumin/Creatinine Ratio 07/17/2024 024, 11/16/2022, 05/13/2022, Additional history exists CKD PHOS USE SMARTSET 24809 07/17/2024 06/0 05/2023, 07/03/2023, 11/16/2022, Additional history exists CKD HGB USE SMARTSET 21877 08/15/202408/15, 07/31/2023, 07/26/2023, Additional history exists DTaP,Tdap,and Td Vaccines (3 [...] this encounter Medical Devices Implanted Type Area Papier Mache' Molder Device Identifier Shelf Expiration Date Model / Serial / Lot Shaft Fibula 6cm [id number] - [id number] Implanted:Qty: 1 on 09/05/2008 at [place] [facility] Tissue - Human N/A: Spine Cervical MUSCULOSKELETAL TRANSPLANT FND 04/20/2010 [id number] / [id number] 0P / Stent Eso Gw 22x70 [id number] - [id number] Implanted:Qty: 1 on 01/21/2008 at [place] [facility] N/A: Esophagus [employer]US INC 04/12/2009 39416-556 / / [id number] Depuy Uniplate 32 Implanted:Qty: 1 on 09/05/2008 [...] [facility] [place] Neck 1773-06-146 / [id number] / Plate Zach 3 Level Ti 54mm - [id number] Implanted:Qty: 1 on 05/07/2010 at [place] [facility] N/A: Neck JNJ : DEPUY SPINE [id number] / / Screw Zach Const St Ti 14mm - [id number] Implanted:Qty: 4 on 05/07/2010 at [place] [facility] N/A: Neck JNJ : DEPUY SPINE [id number] / / Screw 3.5x14 Mntr Fa [id number] - [id number] Implanted:Qty: 8 on 05/07/2010 at [place] [facility] N/A: Spine Cervical JNJ : ETHICON CARDIOVATIONS [id number] / / Jarrell 3.9q300ut [id number] - [id number] Implanted:Qty: 1 on 05/07/2010 at [place] [facility] N/A: Spine Cervical JNJ : ETHICON CARDIOVATIONS [id number] / / Screw Inner Mntr [id number] - [id number] Implanted:Qty: 8 on 05/07/2010 at [place] [facility] N/A: Spine Cervical JNJ : ETHICON CARDIOVATIONS [id number] / / Envista Intraocular Lens Implanted:Qty: 1 on 03/10/2022 by Liang Marshall MD at OR [facility] Right: Eye BAUSCH & LOMB 08/13/2023 [id number] / [id number] / [id number] Envista Intraocular Lens Implanted:Qty: 1 on 03/24/2022 by Liang Marshall MD at OR [facility] Left: Eye BAUSCH & LOMB 07/13/2024 [id number] / [id number] / [id number] documented as of this encounter Visit Diagnoses Diagnosis HTN, goal below 140/90 Unspecified essential hypertension JORGE (acute kidney injury) (HCC) Acute kidney failure, unspecified Chronic kidney disease, unspecified CKD stage 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 kidney disease (HCC) Stage 3b chronic kidney disease (HCC) Loss of weight Hypomagnesemia Disorders of magnesium metabolism Type 2 diabetes mellitus with hemoglobin A1c goal of less than 7.5% ([facility]) documented in this encounter Advance Directives Documents on File Type Date Recorded 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 No Care Teams Director Of Contracts Relationship Specialty Start Date End Date Jocelyne Desai DO [address] [place] [address] [place] [address] PCP - General Internal Medicine 11/09/16 documented as of this encounter
--- OUTSIDE RECORDS SUMMARY | 2023-10-21 16:39 | External Medical Summary | Summary of Care ---
Author Name Unknown Organization [facility] Address [address] [facility] [place] [address] Phone [phone] Care Team Providers Care Construction Rigger Name Role Phone Jocelyne Desai DO Primary Care Provider [phone] Encounter Details Date Type Department Care Team (Late st Contact Info) Description 08/28/2023 Orders Only Centralized Clinical Pharmacy Services, Ilya Lafleur [address] [place] [address] [place] [address] Sofie Danielle, [facility] [address] [place] [address] Chronic atrial fibrillation (HCC)* Allergies No known [...] [facility] for wound care [phone] Televideo if needed. 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 [...] ICD-10 update of inactive term PLATT RESEARCH OTHER*[id number] 02/20/2007 ADVANCE DIRECTIVE INFORMATION 01/19/2005 Overview: Yes, [...] 11/17/19 23 LUMBAGO 12/24/2002 05/09/2007 LOC PRIM [id number] 12/24/200208/13 DEGENERATIVE SKIN DISORD 12/24/2002 VERTEBRAL FX [...] Contact Info) Description 08/29/2023 6:30 AM EDT [facility] Clinical Pharmacy Services, Ilya Lafleur [address] [place] [address] [place] [address] [place] [address] 09/27/2023 11:50 AM EDT Office Visit Family Medicine [address] [place] [phone] Jocelyne Desai[address] [place] [address] 11/20/2023 2:00 PM EDT Office Visit Nephrology [address] [place] [address] Marycarmen Kowalski PA-C [address] [place] [address] 02/20/2024 12:30 PM EST Nurse Only Ancillary [address] [place] [address] [place], Nurse Annual [address] [place] [address] 03/08/2024 2:30 PM EST Office Visit Family Medicine [address] [place] [phone] Jocelyne Desai, [address] [place] [address] Scheduled Orders Name Type Priority Associated Diagnoses Orde r Schedule PT INR Lab Routine Chronic atrial fibrillation (HCC) Other, Please specify in Comments field for 26 Occurrences starting 08/28/2023 until 08/27/2024 Scheduled Procedures Name Priority Associated Diagnoses Date/Ti [...] Additional history exists CKD HGB USE SMARTSET 71289 08/22/202408/22, 08/23/2023, 08/16/2023, Additional history exists CKD PHOS USE SMARTSET 48122 08/22/202408/13, 07/18/2023, 07/03/2023, Additional history exists DTaP,Tdap,and [...] encounter Medical Devices Implanted Type Area General Scrap Worker Device Identifier Shelf Expiration Date Model / Serial / Lot Shaft Fibula 6cm 985819 - [id number] Implanted:Qty: 1 on 09/05/2008 at OR [facility] Tissue - Human N/A: Spine Cervical MUSCULOSKELETAL TRANSPLANT FND 04/20/2010 499597 / [id number] 0P / Stent Eso Gw 22x70 48048-760 - [id number] Implanted:Qty: 1 on 01/21/2008 at OR [facility] N/A: Esophagus [employer]US INC 04/12/2009 55354-715 / / [id number] Depuy Uniplate 32 Implanted:Qty: 1 on 09/05/2008 [facility] [place] N/A: Neck 1773--146 / [id number] / Plate Zach 3 Level Ti 54mm - [id number] Implanted:Qty: 1 on 05/07/2010 at OR [facility] N/A: Neck JNJ : DEPUY SPINE [id number] / / Screw Zach Const St Ti 14mm - [id number] Implanted:Qty: 4 on 05/07/2010 at OR [facility] N/A: Neck JNJ : DEPUY SPINE [id number] 14 / / Screw 3.5x14 Mntr Fa [id number] - [id number] Implanted:Qty: 8 on 05/07/2010 at OR [facility] N/A: Spine Cervical JNJ : ETHICON CARDIOVATIONS [id number] / / Jarrell 3.0n900tr [id number] - [id number] Implanted:Qty: 1 on 05/07/2010 at OR [facility] N/A: Spine Cervical JNJ : ETHICON CARDIOVATIONS [id number] / / Screw Inner Mntr [id number] - [id number] Implanted:Qty: 8 on 05/07/2010 at OR [facility] N/A: Spine Cervical JNJ : ETHICON CARDIOVATIONS [id number] / / Envista Intraocular Lens Implanted:Qty: 1 on 03/10/2022 by Liang Marshall MD at OR [facility] Right: Eye BAUSCH & LOMB 08/13/2023 [id number] / [id number] / [id number] Envista Intraocular Lens Implanted:Qty: 1 on 03/24/2022 by Linag Marshall MD at [facility] Left: Eye BAUSCH & LOMB 07/13/2024 [id number] / [id number] / [id number] documented as of this encounter Visit Diagnoses Diagnosis Chronic atrial fibrillation (HCC)- Primary Atrial fibrillation documented in this encounter Advance Directives Documents on File Type Date Recorded Patient Applications Support Engineer Torres ARREOLA 01/26/2021 [place] [facility] FOR LIFE-SUSTAINING TREATMENT * No [...] Power of Attor andrew? No Care Teams Construction Rigger Relationship Specialty Start Date End Date Jocelyne Desai DO [address] [place] [address] [place] [address] PCP - General Internal Medicine 11/09/16 documented as of this encounter
--- OUTSIDE RECORDS SUMMARY | 2023-10-21 16:39 | External Medical Summary | Summary of Care ---
Author Name Unknown Organization [facility] Address [address] [facility] [place] [address] Phone [phone] Care Team Providers Care Engineering Aide Name Role Phone Jocelyne Desai DO Primary Care Provider + [phone] Reason for Referral * Evaluate & Treat - Unlimited Visits (Within 10 days (routine)) - Authorized Specialty Diagnoses / Procedures Referred By Mingo de paz Referred To Contact Gastroenterology Diagnoses Anorexia Pancreatic atrophy Iron deficiency anemia, unspecified iron deficiency anemia type Gallstones Jocelyne Desai DO [address] [place] [address] [place] [address] Referral ID Status Reason Start Date Expiration Date Visits Requested Visits Authorized [id number] Authorized Specialty Services Required 08/28/2023 999 999 [...] unexplained weight loss Anorexia Jocelyne Desai DO [address] [place] [address] [place] [address] Referral ID Status Reason Start Date Expiration Date Visits Requested Visits Authorized [id number] Authorized Ancillary Services Required 08/28/2023 999 999 [...] loss Procedures CT CHEST WO CONTRAST Jocelyne Desai[address] [place] [address] Referral ID Status Reason Start Date Expiration Date V isits Requested Visits Authorized [id number] Pending Review 08/28/2023 999 999 Reason for Visit * Reason Onset Date Comments Appointment 08/28/2023 Encounter Details Date Type Department Care Team ([facility] st Contact Info) Description 08/28/2023 Telephone Family Medicine [address] [place] [phone] Jocelyne Desai [address] [place] [address] Appointment Allergies No known active allergiesdocumented as [...] different from the original. Good connectivity [facility] for wound care [phone] Televideo if needed. Problem Noted Date Diagnosed [...] ICD-10 update of inactive term PLATT RESEARCH OTHER*[id number] 02/20/2007 ADVANCE DIRECTIVE INFORMATION 01/19/2005 Overview: Yes, [...] [place] office early next week will need [facility] provider recheck Multiple and open [...] 11/17/19 23 LUMBAGO 12/24/2002 05/09/2007 LOC PRIM [id number] 12/24/200208/13 DEGENERATIVE SKIN DISORD 12/24/2002 VERTEBRAL FX [...] Description 4 8:45 AM EDT Imaging Radiology [facility] [address] [place] [address] 4 6:15 AM EDT Anticoagulation Centralized Clinical Pharmacy Services, Ilya Lafleur [address] [place] [address] [place] [address] [facility], [address] [place] [address] 4 10:30 AM EDT Hospital Encounter ENDO OSSC, Endoscopy Room [facility] [address] [place] [phone] Rustam Roach MD [address] [place] [address] 4 10:30 AM EDT - 4 11:00 AM EDT Surgery ENDO OSSC, Endoscopy Room [facility] [address] [place] [phone] Rustam Roach MD [address] [place] [address] ESOPHAGOGASTRODUODENOSCOPY (EGD), FLEXIBLE, TRANSORAL, DIAGNOSTIC 4 11:50 AM EDT Office Visit Family Medicine [address] [place] [phone] [address] [place] [address] 4 2:00 PM EDT Office Visit Nephrology [address] [place] [address] Marycarmen Kowalski PA-C [address] [place] [address] 4 9:00 AM EST Office Visit Gastroenterolo gy [address] [place] [address] Moon Avila CRNP [address] [place] [address] 5 12:30 PM EST Nurse Only Ancillary [address] [place] [address] [place], Nurse Annual [address] [place] [address] 5 2:30 PM EST Office Visit Family Medicine [address] [place] [phone] Jocelyne Desai, [address] [place] [address] Scheduled Orders Name Type Priority Associated Diagnoses Orde r Schedule CT CHEST WO CONTRAST Medical Imaging Routine Recent unexplained weight loss Ordered: 08/28/2023 Scheduled Procedures Name Priority Associated Diagnoses Date/Ti me ESOPHAGOGASTRODUODENOSCOPY ( EGD), FLEXIBLE, TRANSORAL, DIAGNOSTIC Anorexia Weight loss 09/05/2023 10:30 AM EDT COLONOSCOPY FLEXIBLE PROXIMA L DIAGNOSTIC [...] 07/26/2023, Additional history exists HbA1c 02/23/2024 08/23/2023, 1005/2022, 11/09/2022, Additional history exists Albumin/Creatinine Ratio 07/17/2024 024, 11/16/2022, 05/13/2022, Additional history exists CKD HGB USE SMARTSET 31984 08/22/202408/22, 08/23/2023, 08/16/2023, Additional history exists CKD PHOS USE SMARTSET 94017 08/22/202408/13, 07/18/2023, 07/03/2023, Additional history exists DTaP,Tdap,and [...] this encounter Medical Devices Implanted Type Area Investment Fund Manager Device Identifier Shelf Expiration Date Model / Serial / Lot Shaft Fibula 6cm 098267 - [id number] Implanted:Qty: 1 on 09/05/2008 at OR [facility] Tissue - Human N/A: Spine Cervical MUSCULOSKELETAL TRANSPLANT FND 04/20/2010 [id number] / [id number] 0P / Stent Eso Gw 22x70 65060-006 - [id number] Implanted:Qty: 1 on 01/21/2008 at OR [facility] N/A: Esophagus ALVEOLUS INC 04/12/2009 99228-928 / / [id number] Depuy Uniplate 32 Implanted:Qty: 1 on 09/05/2008 at OR [facility] N/A: Spine Cervical TAMMY & TAMMY DEPUY 1897--302 / / Depuy Uniplate Screw 14mm Implanted:Qty: 2 on 09/05/2008 at OR [facility] N/A: Spine Cervical TAMMY & TAMMY DEPUY 1896-07-017 / / Depuy Lordotic Bengal Cage Implanted:Qty: 1 on 05/07/2010 at OR [facility] N/A: Neck 1773-06-146 / 1773-06-146 / Plate Zach 3 Level Ti 54mm - [id number] Implanted:Qty: 1 on 05/07/2010 at OR [facility] N/A: Neck JNJ : DEPUY SPINE [id number] 54 / / Screw Zach Const St Ti 14mm - [id number] Implanted:Qty: 4 on 05/07/2010 at OR [facility] N/A: Neck JNJ : DEPUY SPINE [id number] 14 / / Screw 3.5x14 Mntr Fa [id number] - [id number] Implanted:Qty: 8 on 05/07/2010 at OR [facility] N/A: Spine Cervical JNJ : ETHICON CARDIOVATIONS [id number] / / Jarrell 3.7k007nt [id number] - [id number] Implanted:Qty: 1 on 05/07/2010 at OR [facility] N/A: Spine Cervical JNJ : ETHICON CARDIOVATIONS [id number] / / Screw Inner Mntr [id number] - [id number] Implanted:Qty: 8 on 05/07/2010 at OR [facility] N/A: Spine Cervical JNJ : ETHICON CARDIOVATIONS [id number] / / Envista Intraocular Lens Implanted:Qty: 1 on 03/10/2022 by Liang Marshall MD at OR [facility] Right: Eye BAUSCH & LOMB 08/13/2023 [id number] / [id number] / [id number] Envista Intraocular Lens Implanted:Qty: 1 on 03/24/2022 by Liang Marshall MD at OR [facility] Left: Eye BAUSCH & LOMB 07/13/2024 [id number] / [id number] / [id number] documented as of this encounter Visit Diagnoses Diagnosis Recent unexplained weight loss- Primary Anorexia Pancreatic atrophy Other specified disease of pancreas Iron deficiency anemia, unspecified iron deficiency anemia type Gallstones Calculus of gallbladder without mention of cholecystitis or obstruction Anorexia Weight loss Loss of weight documented in this encounter Advance Directives Documents on File Type Date Recorded 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 No Care Teams Engineering Aide Relationship Specialty Start Date End Date Jocelyne Desai DO [address] [place] [address] [place] [address] PCP - General Internal Medicine 11/09/16 documented as of this encounter"
--- OUTSIDE RECORDS SUMMARY | 2023-10-21 16:39 | External Medical Summary | Summary of Care ---
Author Name Unknown Organization [facility] Address [address] [facility] [place] [address] Phone [phone] Care Team Providers Care Assistant Manager Pt Name Role Phone Jocelyne Desai DO Primary Care Provider + [phone] Reason for Referral * Precert (Within 10 days (routine)) - Pending Review Specialty Diagnoses / Procedures Referred By Contac t Referred To Contact Radiology Diagnoses Loss of weight Procedures CT ABD/PELVIS WO IV CONTRAST - W ORAL CONTRAST Jocelyne Desai [address] [place] [address] Referral ID Status Reason Start Date Expiration Date V isits Requested Visits Authorized [id number] Pending Review 08/23/2023 999 999 Reason for Visit * Reason Onset Date Comments Hospital Follow-Up Pt c/o ongoin g shortness of breath, weakness, unable to stand for a period of time before he needs to sit down, decreased appetite, weight loss (almost 60 lbs since June). Hospital Follow-Up 08/23/2023 Encounter Details Date Type Department Care Team (Late st Contact Info) Description 08/23/2023 11:50 AM EDT Office Visit Family Medicine [address] [place] [phone] Jocelyne Desai [address] [place] [address] Loss of weight*; Poor appetite; Anemia, unspecified type; Type 2 diabetes mellitus with hemoglobin A1c goal of less than 7.5% ([facility]); Kidney disease, chronic, stage IV (GFR 15-29 ml/min) ([facility]); Hypomagnesemia Allergies No known active allergiesdocumented as of [...] n clinic. 100 Tablet 3 07/25/2023 Active Torsemide 20 MG Oral Tablet (Demadex) Take 2 Tablets by mouth in the morning and 2 Tablets before bedtime. 400 Tablet 07/26/2023 Active Aspirin 81 MG Oral Tablet Chewable Take 1 Tablet by mouth in the morning. with food.. 08/23/2023 Active Vitamin D3 50 MCG (1999 UT) Oral Capsule Take 1 Capsule by mouth every evening. 30 Capsule 07/05/2023 4 Discontinued Aspirin 81 MG Oral Tablet Delayed Release Take 1 Tablet by mouth every evening. 100 Tablet 3 07/25/2023 4 Discontinued Ozempic (0.25 or 0.5 MG/DOSE) 2 MG/3ML Solution Pen-injector (Semaglutide(0.2 5 or 0.5MG/DOS)) Inject 0.25 mg under the skin once a week. 6 mL 07/25/2023 4 Discontinued documented as of this encounter (statuses as of 08/23/2023) Active Problems Patient Care Coordination No te Formatting of this note migh t be different from the original. Good connectivity [facility] for wound care [phone] Televideo if needed. Problem Noted Date Diagnosed [...] up with podiatry,. Letter in chart from [facility] podiatry they were unable to get in [...] ICD-10 update of inactive term PLATT RESEARCH OTHER*[id number] 02/20/2007 ADVANCE DIRECTIVE INFORMATION 01/19/2005 Overview: Yes, [...] 11/17/19 23 LUMBAGO 12/24/2002 05/09/2007 LOC PRIM [id number] 12/24/200208/13 DEGENERATIVE SKIN DISORD 12/24/2002 VERTEBRAL FX [...] Sign Reading Time Taken Comments Blood Pressure 100/58 08/23/2023 11:53 AM EDT Pulse 62 08/23/2023 11:53 AM EDT Temperature 36.7 C (98 F) 08/23/2023 11:53 AM EDT Respiratory Rate - - Oxygen Saturation 100% 08/23/2023 11:53 AM EDT Inhaled Oxygen Concentration - - Weight 88 kg (194 lb) 08/23/2023 11:53 AM EDT Height - - Body Mass Index 27.06 02/23/2023 1:42 PM EST documented in this encounter Patient Instructions * Patient Instructions* Jocelyne Desai DO - 08/23/2023 12:19 PM EDT STOP Ozempic. DO NOT TAKE your torsemide until I review your blood work and get back to you. DO NOT TAKE your potassium unless you take the torsemide. documented in this encounter Progress Notes * Jocelyne Desai DO - 08/23/2023 11:56 AM EDT Subjective: Lg Cooley is a 73 year old male. Chief Complaint Patient presents with Hospital Follow-Up Pt c/o ongoing shortness of breath, weakness, unable to stand for a period of time before he needs to sit down, decreased appetite, weight loss (almost 60 lbs since June). Hospital Follow-Up HPI: Lg Cooley presents today for routine follow up. Concerns today include significant weight loss - 53# since February, fatigue, shortness of breath, and generalized weakness. 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 He denies blood in his stools. No night sweats or swollen glands. No cough. Appetite is poor. He can only eat half of a TV dinner. He notices he is bruising more. No change in bowels. No problems with urination - no blood. No headaches or vision changes. He continues to have a wound vac on his PMH: Patient Active Problem List Diagnosis SPINAL STENOSIS-LUMBAR ADVANCE DIRECTIVE INFORMATION Vitamin D deficiency Cervical spinal stenosis Type 2 diabetes mellitus with hemoglobin A1c goal of less than 7.5% ([facility]) HTN, goal below 140/90 DYSLIPIDEMIA, GOAL LDL BELOW 100 INDEPENDENCE RESEARCH OTHER*[id number] Erectile dysfunction DM neuropathy, type II diabetes mellitus ([facility]) Paroxysmal SVT (supraventricular tachycardia) ([facility]) Cardiac pacemaker in situ Venous insufficiency of both lower extremities Microalbuminuric diabetic nephropathy ([facility]) Chronic atrial fibrillation ([facility]) Peripheral sensory neuropathy Vitamin B12 deficiency Cerebrovascular disease, arteriosclerotic, 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 ([facility]) Type 2 diabetes, controlled, with peripheral neuropathy ([facility]) Type 2 diabetes mellitus with peripheral vascular disease ([facility]) Persistent proteinuria H/O gastric bypass skilled nursing current use of 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 Complex sleep apnea syndrome Nocturnal hypoxemia Type 2 diabetes mellitus with stage 3b chronic kidney disease, without long-term current use of insulin ([facility]) Sleep apnea treated with nocturnal BiPAP PAD (peripheral artery disease) ([facility]) Hyperparathyroidism, secondary renal ([facility]) Diabetes mellitus due to underlying condition with severe nonproliferative diabetic retinopathy with macular edema, unspecified eye ([facility]) 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 kidney disease (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) Chronic kidney disease, stage 3b ([facility]) Non-pressure chronic ulcer of other part of right foot with unspecified severity (HCC) Acquired absence of right great toe (HCC) 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, with fat layer exposed ([facility]) History of VT (myocardial infarction) Trigger ring finger of left hand Full code status Calculus of gallbladder without cholecystitis without obstruction Stasis ulcer (HCC) MRSA (methicillin resistant Staphylococcus aureus) Orthostatic hypotension Pressure injury of buttock, stage [address]) Current Outpatient Medications Medication Sig Dispense Refill ACETAMINOPHEN 500 MG PO TABS 2 tabs every 6 hours as needed for discomfort Vitamin D3 50 MCG (2000 UT) Oral [...] mouth in the morning. 30 Capsule 0 oxyCODONE HCl 5 MG Oral Tablet (Oxy IR) Take 1 Tablet by mouth every 6 hours as needed for Pain, Moderate or Pain, Severe. 30 Tablet 0 Sennosides-Docusate Sodium 8.6-50 MG Oral Tablet (Senna S) Take 1 Tablet by mouth in the morning. 30 Tablet 0 Midodrine HCl 2.5 MG Oral Tablet (Proamatine) Take 1 Tablet by mouth in the morning and 1 Tablet atnoon and 1 Tablet in the evening. 90 Tablet 2 Potassium Chloride Candi ER 20 MEQ Oral Tablet Extended Release Take 1 Tablet by mouth in the morning and 1 Tablet before bedtime. 200 Tablet 3 Aspirin 81 MG Oral Tablet Delayed Release Take 1 Tablet by mouth every evening. 100 Tablet 3 Atorvastatin Calcium 40 MG Oral [...] mouth in the morning. 100 Tablet 3 Ozempic (0.25 or 0.5 MG/DOSE) 2 MG/3ML Solution Pen-injector (Semaglutide(0.25 or 0.5MG/DOS)) Inject 0.25 mg under the skin once a week. 6 mL 0 Tamsulosin HCl 0.4 MG Oral Capsule (Flomax) Take 1 Capsule by mouth in the morning. 100 Capsule 3 Warfarin Sodium 3 MG Oral Tablet Take 1 Tablet by mouth every evening. As per anti-coagulation clinic. 100 Tablet 3 Torsemide 20 MG Oral Tablet (Demadex) Take 2 Tablets by mouth in the morning and 2 Tablets before bedtime. 400 Tablet 0 No current facility-administered medications for this visit. Review of patient's allergies indicates: No Known Allergies Objective: BP 100/58 | Pulse 62 | Temp 36.7 C (98 F) | Wt 88 kg (194 lb) | SpO2 100% | BMI 27.06 kg/m | BSA 2.1 m General: frail cachetic male in NAD Neck: supple, no adenopathy, thyroid normal size, non-tender, without nodularity Heart: regular rate & rhythm and no murmur Lungs: chest symmetric with normal AP diameter, no chest deformities noted, normal respiratory rateand rhythm, lungs clear to auscultation Abdomen: abdomen soft and non-tender Extremities: no joint deformities, effusion, or inflammation, no edema Neuro Exam: alert & oriented x 3 with fluent speech, no focal motor/sensory deficits, ambulateswith a walker Skin: (+) wound vac on the RLE ASSESSMENT/PLAN: Loss of weight (Primary) - COMPREHENSIVE METABOLIC PANEL; Future; Expected date: 08/23/2023 - CBC WITH WBC DIFFERENTIAL AND ANEMIA REFLEX WORKUP; Future; Expected date: 08/23/2023 - PSA; Future; Expected date: 08/23/2023 - TSH WITH FREE T4 IF INDICATED; Future; Expected date: 08/23/2023 - CT ABD/PELVIS WO IV CONTRAST - W ORAL CONTRAST Poor appetite Anemia, unspecified type - worsening anemia noted on labs from Dr. Aquino, unclear if related to worsening renal function or another etiology. Type 2 diabetes mellitus with hemoglobin A1c goal of less than 7.5% ([facility]) - stop Ozempic, particularly given his poor PO intake. - HEMOGLOBIN A1C; Future; Expected date: 08/23/2023 Kidney disease, chronic, stage IV (GFR 15-29 ml/min) ([facility]) Hypomagnesemia - MAGNESIUM; Future; Expected date: 08/23/2023 Check-out note: Labs today. CT scan KENNY. Jocelyne Desai DO I spent a total of 40-54 minutes (exact time 40 mins) on the date of service in preparation, delivery, and documentation of the care provided to Lg Cooley excluding any time spent in the performance of separately billed services. documented in this encounter Plan of Treatment Upcoming Encounters Date Type Department Care Team (Late st Contact Info) Description 08/29/2023 6:30 AM EDT Anticoagulation [facility], Ilya Lafleur [address] [place] [address] [place] [address] [facility], [address] [place] [address] 08/30/2023 1:45 PM EDT Imaging Radiology [address], [place] [address] [facility] [place] [address] 09/27/2023 11:50 AM EDT Office Visit Family [address] [place] [phone] Jocelyne Desai DO [address] [place] [address] [place] [address] 11/20/2023 2:00 PM EDT Office Visit Nephrology [address] [place] [address] Marycarmen Kowalski PA-Sofía [address] [place] [address] 02/20/2024 12:30 PM EST Nurse Only Ancillary [address] [place] [address] [place], Nurse [address] [place] [address] 03/08/2024 2:30 PM EST Office Visit Family [address] [place] [phone] Jocelyne Desai DO [address] [place] [address] [place] [address] Pending Results Name Type Priority Associated Diagnoses Date /Time COMPREHENSIVE METABOLIC PANEL Lab Routine Loss of weight 08/23/2023 12:46 PM EDT MAGNESIUM Lab Routine Hypomagnesemia 08/23/2023 12:46 PM EDT HEMOGLOBIN A1C Lab Routine Type 2 diabetes mellitus with hemoglobin A1c goal of less than 7.5% (HCC) 08/23/2023 12:46 PM EDT CBC WITH WBC DIFFERENTIAL AND ANEMIA REFLEX WORKUP Lab Routine Loss of weight 08/23/2023 12:46 PM EDT PSA Lab Routine Loss of weight 08/23/2023 12:46 PM EDT TSH WITH FREE T4 IF INDICATED Lab Routine Loss of weight 08/23/2023 12:46 PM EDT Scheduled Orders Name Type Priority Associated Diagnoses Orde r Schedule COMPREHENSIVE METABOLIC PANEL Lab Routine Loss of weight Expected: 08/23/2023 (Approximate), Expires: 08/22/2024 MAGNESIUM Lab Routine Hypomagnesemia Expected: 08/23/2023 (Approximate), Expires: 08/22/2024 HEMOGLOBIN A1C Lab Routine Type 2 diabetes mellitus with hemoglobin A1c goal of less than 7.5% (HCC) Expected: 08/23/2023 (Approximate), Expires: 08/22/2024 CBC WITH WBC DIFFERENTIAL AND ANEMIA REFLEX WORKUP Lab Routine Loss of weight Expected: 08/23/2023 (Approximate), Expires: 08/22/2024 PSA Lab Routine Loss of weight Expected: 08/23/2023 (Approximate), Expires: 08/22/2024 TSH WITH FREE T4 IF INDICATED Lab Routine Loss of weight Expected: 08/23/2023 (Approximate), Expires: 08/22/2024 CT ABD/PELVIS WO IV CONTRAST - W ORAL CONTRAST Medical Imaging Routine Loss of weight Ordered: 08/23/2023 Scheduled Procedures Name Priority Associated Diagnoses Date/Ti [...] Additional history exists CKD PHOS USE SMARTSET 74640 07/17/2024 06/0 05/2023, 07/03/2023, 11/16/2022, Additional history exists CKD HGB USE SMARTSET 92684 08/15/202408/15, 07/31/2023, 07/26/2023, Additional history exists DTaP,Tdap,and [...] encounter Medical Devices Implanted Type Area Senior Android Developer Device Identifier Shelf Expiration Date Model / Serial / Lot Shaft Fibula 6cm [id number] - [id number] Implanted:Qty: 1 on 09/05/2008 at [place] [facility] Tissue - Human N/A: Spine Cervical MUSCULOSKELETAL TRANSPLANT FND 04/20/2010 [id number] / [id number] / Stent Eso Gw 22x70 [id number] - [id number] Implanted:Qty: 1 on 01/21/2008 at OR [facility] N/A: Esophagus [employer] 04/12/2009 [id number] / / [id number] Depuy Uniplate 32 Implanted:Qty: 1 on 09/05/2008 at OR [facility] N/A: Spine Cervical [employer]AMMY [employer]AM[employer] DEPUY [id number] / / Depuy Uniplate Screw 14mm Implanted:Qty: 2 on 09/05/2008 at OR [facility] N/A: Spine Cervical [employer] DEPUY [id number] / / Depuy Lordotic Bengal Cage Implanted:Qty: 1 on 05/07/2010 at OR [facility] N/A: Neck [id number] / [id number] / Plate Zach 3 Level Ti 54mm - [id number] Implanted:Qty: 1 on 05/07/2010 at OR [facility] N/A: Neck JNJ : DEPUY SPINE [id number] / / Screw Zach Const St Ti 14mm - [id number] Implanted:Qty: 4 on 05/07/2010 at OR [facility] N/A: Neck JNJ : DEPUY SPINE [id number] / / Screw 3.5x14 Mntr Fa [id number] - [id number] Implanted:Qty: 8 on 05/07/2010 at [place] [facility] N/A: Spine Cervical JNJ : [employer] [id number] / / Jarrell 3.2b655bs [id number] - [id number] Implanted:Qty: 1 on 05/07/2010 at [place] [facility] N/A: Spine Cervical JNJ : [employer] [id number] / / Screw Inner Mntr [id number] - [id number] Implanted:Qty: 8 on 05/07/2010 at OR [facility] N/A: Spine Cervical JNJ : [employer] [id number] / / Envista Intraocular Lens Implanted:Qty: 1 on 03/10/2022 by Liang Marshall MD at OR [facility] Right: Eye [employer]OM[employer] 08/13/2023 [id number] / [id number] / [id number] Envista Intraocular Lens Implanted:Qty: 1 on 03/24/2022 by Liang Marshall MD at OR [facility] Left: Eye [employer]CH [employer] LOMB 07/13/2024 [id number] / [id number] / [id number] documented as of this encounter Visit Diagnoses Diagnosis Loss of weight- Primary Poor appetite Anorexia Anemia, unspecified type Type 2 diabetes mellitus with hemoglobin A1c goal of less than 7.5% (HCC) Kidney disease, chronic, stage IV (GFR 15-29 ml/min) (HCC) Chronic kidney disease, Stage IV (severe) Hypomagnesemia Disorders of magnesium metabolism documented in this encounter Advance Directives Documents on File Type Date Recorded Patient Promotions Firm Accounts Manager Expl anation POLST 01/26/2021 [place] [facility] * No [...] Power of Attor andrew? No Care Teams Assistant Manager Pt Relationship Specialty Start Date End Date Jocelyne Desai DO [address] [place] [address] [place] [address] PCP - General Internal Medicine 11/09/16 documented as of this encounter"
--- OUTSIDE RECORDS SUMMARY | 2023-10-21 16:39 | External Medical Summary | Summary of Care ---
Author Name Unknown Organization [facility] Address [address] [facility] [place] [address] Phone [phone] Care Team Providers Care Director Of Teacher Education Name Role Phone Jocelyne Desai DO Primary Care Provider Reason for Visit * Reason Onset Date Comments Appointment 08/29/2023 Upper endoscopy Encounter Details Date Type Department Care Team (Late st Contact Info) Description 08/29/2023 Telephone Family Medicine [address] [place] [address] Jocelyne Desai DO [address] [place] [address] [place] [address] Appointment (Upper endoscopy ) [...] connectivity [facility] for wound care [phone] Televideo if needed. 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 (Household - for [...] encounter Miscellaneous Notes * Telephone Encounter - Mariola Murillo OSA - 08/29/2023 11:57 AM EDT Egd 09/04 * Telephone Encounter - Amanda Hayden OSA - 08/29/2023 11:24 AM EDT Rich needs scheduled for an upper endoscopy for: Recent unexplained weight loss [R63.4] - Primary Anorexia [R63.0] documented in this encounter Plan of Treatment Upcoming Encounters Date Type Department Care Team (Latest Contact Info) Description 4 8:45 AM EDT Imaging Radiology [facility]st [facility] [address] [place] [address] 4 6:15 AM EDT Anticoagulation [facility], Ilya Lafleur [address] [place] [address] [place] [address] [facility], [address] [place] [address] 4 10:30 AM EDT Hospital Encounter ENDO O[facility], Endoscopy Room [facility] [address] [place] [phone] Rustam Roach MD [address] [place] [address] 4 10:30 AM EDT - 4 11:00 AM EDT Surgery ENDO [facility], Endoscopy Room [facility] [address] [place] [phone] Rustam Roach MD [address] [place] [address] ESOPHAGOGASTRODUODENOSCOPY (EGD), FLEXIBLE, TRANSORAL, DIAGNOSTIC 4 11:50 AM EDT Office Visit Family Medicine [address] [place] [address] [place] [address] 4 2:00 PM EDT Office Visit Nephrology [address] [place] [address] Marycarmen Kowalski PA-C [address] [place] [address] 4 9:00 AM EST Office Visit Gastroenterolo gy [address] [place] [address] Moon Avila CRNP [address] [place] [address] 5 12:30 PM EST Nurse Only Ancillary [address] [place] [address] [place], Nurse Annual [address] [place] [address] 5 2:30 PM EST Office Visit Family Medicine [address] [place] [phone] Jocelyne Desai, [address] [place] [address] Scheduled Procedures Name Priority Associated Diagnoses Date/Ti [...] Additional history exists CKD HGB USE SMARTSET 32951 08/22/202408/22, 08/23/2023, 08/16/2023, Additional history exists CKD PHOS USE SMARTSET 62416 08/22/202408/13, 07/18/2023, 07/03/2023, Additional history exists DTaP,Tdap,and [...] this encounter Medical Devices Implanted Type Area Bus Aide Device Identifier Shelf Expiration Date Model / Serial / Lot Shaft Fibula 6cm [id number] - [id number] Implanted:Qty: 1 on 09/05/2008 at [place] [facility] Tissue - Human N/A: Spine Cervical MUSCULOSKELETAL TRANSPLANT FND 04/20/2010 [id number] / [id number] 0P / Stent Eso Gw 22x70 [id number] - [id number] Implanted:Qty: 1 on 01/21/2008 at [place] [facility] N/A: Esophagus [employer] 04/12/2009 [id number] / / [id number] Depuy Uniplate 32 Implanted:Qty: 1 on 09/05/2008 [...] [facility] [place] N/A: Neck [id number] / [id number] / Plate Zach 3 Level Ti 54mm - [id number] Implanted:Qty: 1 on 05/07/2010 at [place] [facility] [place] N/A: Neck JNJ : DEPUY SPINE [id number] / / Screw Zach Const St Ti 14mm - [id number] Implanted:Qty: 4 on 05/07/2010 at [place] [facility] [place] N/A: Neck JNJ : DEPUY SPINE [id number] / / Screw 3.5x14 Mntr Fa [id number] - [id number] Implanted:Qty: 8 on 05/07/2010 at [place] [facility] N/A: Spine Cervical JNJ : [employer] [id number] / / Jarrell [id number] - [id number] Implanted:Qty: 1 on 05/07/2010 at [place] [facility] [place] N/A: Spine Cervical JNJ : [employer] [id number] / / Screw Inner Mntr [id number] - [id number] Implanted:Qty: 8 on 05/07/2010 at [place] [facility] [place] N/A: Spine Cervical JNJ : [employer] [id number] / / Envista Intraocular Lens Implanted:Qty: 1 on 03/10/2022 by Liang Marshall MD at [facility] Right: Eye BAUSCH & LOMB 08/13/2023 [id number] / [id number] / [id number] Intraocular Lens Implanted:Qty: 1 on 03/24/2022 by Liang Marshall MD at [facility] Left: Eye BAUSCH & LOMB 07/13/2024 [id number] / [id number] / [id number] documented as of this encounter Advance Directives Documents on File Type Date Recorded Patient Manager English Expl anation POLST 01/26/2021 [place] [facility] * [...] Attor andrew? No Care Teams Director Of Teacher Education Relationship Specialty Start Date End Date Jocelyne Desai DO [address] [place] [address] [place] [address] PCP - General Internal Medicine 11/09/16 documented as of this encounter
--- OUTSIDE RECORDS SUMMARY | 2023-10-21 16:40 | External Medical Summary ---
Author Name Unknown Address Unknown Organization [id number]:[facility]ATORY [facility] - [address] [place] [address] Laboratory Report Ordering Provider Test Date Status PAWEL VEGA 08/23/2023 12:46:19 Final Observation Date Value Abnormality Reference (Units ) Status SYNC LEUKOCYTES IN BLOOD BY AUTOMATED COUNT 08/23/2023 12:46:19 3.55 Below low normal 4.00-10.80 (K/uL) Final Segs 08/23/2023 12:46:19 64.2 40.0-75.0 (%) Final Lymphs % 08/23/2023 12:46:19 22.3 18.0-42.0 (%) Final Monos 08/23/2023 12:46:19 11.8 Above high normal 1.0-11.0 (%) Final Eosinophils 08/23/2023 12:46:19 1.1 0.0-6.0 (%) Final Basos 08/23/2023 12:46:19 0.3 0.0-2.0 (%) Final Immature Granulocyte, Percent 08/23/2023 12:46:19 0.3 0.0-2.0 (%) Final Absolute Segs 08/23/2023 12:46:19 2.28 1.80-7.70 (K/uL) Final Lymphs, absolute 08/23/2023 12:46:19 0.79 Below low normal 1.00-4.80 (K/ul) Final Monos, Abs 08/23/2023 12:46:19 0.42 0.00-1.10 (K/uL) Final Eos, Abs 08/23/2023 12:46:19 0.04 0.00-0.70 (K/uL) Final Basos, Abs 08/23/2023 12:46:19 0.01 0.00-0.20 (K/uL) Final Immature Granulocytes, Number 08/23/2023 12:46:19 0.01 0.00-0.20 (K/uL) Final Performing Location [facility]ORY [facility] - [facility] [address] [facility] [address]
--- OUTSIDE RECORDS SUMMARY | 2023-10-21 16:40 | External Medical Summary ---
Author Name Unknown Address Unknown Organization K01:[facility] [address] [place] [address] Laboratory Report Ordering Provider Test Date Status PAWEL VEGA 08/23/2023 12:46:19 Final Observation Date Value Abnormality Reference (Units ) Status Magnesium 08/23/2023 12:46:19 1.6 1.5-2.6 (m g/dL) Final Performing Location LABORATORY [facility] - [address] [place] [address]
--- OUTSIDE RECORDS SUMMARY | 2023-10-21 16:40 | External Medical Summary | Summary of Care ---
Author Name Unknown Organization [facility] Address [address] [facility] [place] [address] Phone [phone] Care Team Providers Care Equip Tech Name Role Phone Jocelyne Desai DO Primary Care Provider [phone] Encounter Details Date Type Department Care Team (Late st Contact Info) Description 08/21/2023 Population Health External Data Unspecified Department Allergies No known active allergiesdocumented as of this encounter (statuses as of 08/21/2023) Medications Medication Sig Dispensed Refills Start Date End Date Status ACETAMINOPHEN 500 MG PO TABS 2 tabs every 6 hours as needed for discomfort 11/01/2013 Active Vitamin D3 50 MCG (2000 UT) [...] as of this encounter (statuses as of 08/21/2023) Active Problems Patient Care Coordination No te Formatting of this note migh t be different from the original. Good connectivity [facility] for wound care [phone] Televideo if needed. Problem Noted Date Diagnosed [...] ICD-10 update of inactive term PLATT RESEARCH OTHER*[id number] 02/20/2007 ADVANCE DIRECTIVE INFORMATION 01/19/2005 Overview: Yes, Patient instructed to provide copy of advance directive for provider to review and to be scanned into Electronic Medical Record No, Advance Directive brochure given to patient at prior appointment. SPINAL STENOSIS-LUMBAR 09/23/2002 Vitamin D deficiency Cervical spinal stenosis documented as of this encounter (statuses as of 08/21/2023) Resolved Problems Problem Noted Date Diagnosed Date Resolved Date Depression, unspecified 11/09/2021 03/2 Depression, unspecified 11/09/202105/2022 Cellulitis of right leg 07/13/202105/2022 Last Assessment & Plan: Suspect this could be early/localized. Will treat with 7 days antibiotic. If pt cannot be reassess by Dr. Braxton office early next week will need [facility] provider recheck Multiple and open [...] 11/17/19 23 LUMBAGO 12/24/2002 05/09/2007 LOC PRIM [id number] 12/24/200208/13 DEGENERATIVE SKIN DISORD 12/24/2002 VERTEBRAL FX [...] as of this encounter (statuses as of 08/21/2023) Immunizations Name Administration Dates Next Due COVID-19 [...] No 02/16/2023 Does the household have a up health systemr source of income? (Household - for ages [...] Care Team (Late st Contact Info) Description 08/22/2023 6:30 AM EDT Anticoagulation [facility], Ilya Lafleur [address] [place] [address] [place] [address] [place] [address] 08/23/2023 11:50 AM EDT Office Visit Family Medicine [address] [place] [phone] Jocelyne Desai[address] [place] [address] 08/31/2023 1:00 PM EDT Office Visit Family Medicine [address] [place] [phone] Savanna Al PA-C [address] [place] [address] [place] [address] 11/20/2023 2:00 PM EDT Office Visit Nephrology [address] [place] [address] ZeMarycarmen alan PA-C [address] [place] [address] 02/20/2024 12:30 PM EST Nurse Only Ancillary [address] [place] [address] [place], Nurse Annual Wellness [address] [place] [address] [place] [address] 03/08/2024 2:30 PM EST Office Visit Family Medicine [address] [place] [phone] Jocelyne Desai, [address] [place] [address] Scheduled Procedures Name Priority Associated Diagnoses Date/Ti [...] Additional history exists CKD PHOS USE SMARTSET 10558 07/17/2024 06/0 05/2023, 07/03/2023, 11/16/2022, Additional history exists CKD HGB USE SMARTSET 34916 08/15/202408/15, 07/31/2023, 07/26/2023, Additional history exists DTaP,Tdap,and [...] this encounter Medical Devices Implanted Type Area Ticket Agent Device Identifier Shelf Expiration Date Model / Serial / Lot Shaft Fibula 6cm [id number] - [id number] Implanted:Qty: 1 on 09/05/2008 at [place] [facility] [place] Tissue - Human N/A: Spine Cervical MUSCULOSKELETAL TRANSPLANT FND 04/20/2010 [id number] / [id number] 0P / Stent Eso Gw 22x70 [id number] - [id number] Implanted:Qty: 1 on 01/21/2008 at OR [facility] [place] N/A: Esophagus AL[employer]US INC 04/12/2009 [id number] / / [id number] Depuy Uniplate 32 Implanted:Qty: 1 on 09/05/2008 [...] Plate Zach 3 Level Ti 54mm - [id number] Implanted:Qty: 1 on 05/07/2010 at OR [facility] [place] N/A: Neck JNJ : DEPUY SPINE [id number] / / Screw Zach Const St Ti 14mm - [id number] Implanted:Qty: 4 on 05/07/2010 at OR [facility] [place] N/A: Neck JNJ : DEPUY SPINE [id number] 14 / / Screw 3.5x14 Mntr Fa [id number] - [id number] Implanted:Qty: 8 on 05/07/2010 at OR [facility] [place] N/A: Spine Cervical JNJ : ETHICON CARDIOVATIONS [id number] / / Jarrell [id number] - [id number] Implanted:Qty: 1 on 05/07/2010 at OR [facility] [place] N/A: Spine Cervical JNJ : ETHICON CARDIOVATIONS [id number] / / Screw Inner Mntr [id number] - [id number] Implanted:Qty: 8 on 05/07/2010 at OR [facility] [place] N/A: Spine Cervical JNJ : ETHICON CARDIOVATIONS [id number] / / Envista Intraocular Lens Implanted:Qty: 1 on 03/10/2022 by Liang Marshall MD at OR [facility] Right: Eye BAUSCH & LOMB 08/13/2023 [id number] / [id number] / [id number] Envista Intraocular Lens Implanted:Qty: 1 on 03/24/2022 by Liang Marshall MD at OR [facility] Left: Eye BAUSCH & LOMB 07/13/2024 [id number] / [id number] / [id number] documented as of this encounter Advance Directives Documents on File Type Date Recorded 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 No Care Teams Equip Tech Relationship Specialty Start Date End Date Jocelyne Desai DO [address] [place] [address] [place] [address] PCP - General Internal Medicine 11/09/16 documented as of this encounter
--- OUTSIDE RECORDS SUMMARY | 2023-10-21 16:40 | External Medical Summary ---
Author Name Unknown Address Unknown Organization K01:[facility] - [address] [place] [address] Laboratory Report Ordering Provider Test Date Status PAWEL VEGA 08/23/2023 12:46:19 Final Observation Date Value Abnormality Reference (Units ) Status Phosphate 08/23/2023 12:46:19 4.6 2.5-4.8 (m g/dL) Final Performing Location [facility] - [address] [place] [address]
--- OUTSIDE RECORDS SUMMARY | 2023-10-21 16:40 | External Medical Summary | Summary of Care ---
Author Name Unknown Organization [facility] Address [address] [facility] [place] [address] Phone [phone] Care Team Providers Care Manufacturing Technology Analyst Name Role Phone Jocelyne Desai DO Primary Care Provider + [phone] Encounter Details Date Type Department Care Team (Late st Contact Info) Description 08/18/2023 Orders Only Family Medicine [address] [place] [phone] Jocelyne Desai DO [address] [place] [address] [place] [address] Allergies No known active allergiesdocumented as of this encounter (statuses as of 08/18/2023) Medications Medication Sig Dispensed Refills Start Date End Date Status ACETAMINOPHEN 500 MG PO TABS 2 tabs every 6 hours as needed for discomfort 11/01/2013 Active Vitamin D3 50 MCG (1999 UT) [...] as of this encounter (statuses as of 08/18/2023) Active Problems Patient Care Coordination No te Formatting of this note migh t be different from the original. Good connectivity [facility] for wound care [phone] Televideo if needed. Problem Noted Date Diagnosed [...] up with podiatry,. 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 SPINAL STENOSIS-LUMBAR 09/23/2002 Vitamin D deficiency Cervical spinal stenosis documented as of this encounter (statuses as of 08/18/2023) Resolved Problems Problem Noted Date Diagnosed Date Resolved Date Depression, unspecified 11/09/2021 03/2 Depression, unspecified 11/09/20210 05/2022 Cellulitis of right leg 07/13/20210 05/2022 Last Assessment & Plan: Suspect this could be early/localized. Will treat with 7 days antibiotic. If pt cannot be reassess by Dr. Braxton office early next week will need [facility] provider recheck Multiple and open [...] 11/17/19 23 LUMBAGO 12/24/2002 05/09/2007 LOC PRIM [id number] 12/24/200208/13 DEGENERATIVE SKIN DISORD 12/24/2002 VERTEBRAL FX [...] as of this encounter (statuses as of 08/18/2023) Immunizations Name Administration Dates Next Due COVID-19 mRNA, LNP-s, No Pre serve, 2-Dose Series (Moderna) 03/19/2020 COVID-19 mRNA, LNP-s, No Pre serve, 2-Dose Series (CSL DualCom) 02/16/2021,04/09/2020,03/19/2020 COVID-19, MRNA-LNP, 23-24, P F, 30 [...] Info) Description 08/22/2023 6:30 AM EDT Anticoagulation [facility] Clinical Pharmacy Services, Ilya Lafleur [address] [place] [address] [place] [address] [place] [address] 08/23/2023 11:50 AM EDT Office Visit [address] [place] [phone] Jocelyne Desai[address] [place] [address] 08/31/2023 1:00 PM EDT Office Visit Family [address] [place] [phone] Savanna Al PA-C [address] [place] [address] [place] [address] 11/20/2023 2:00 PM EDT Office Visit Nephrology [address] [place] [address] ZeMaryacrmen alan PA-C [address] [facility] [address] 02/20/2024 12:30 PM EST Nurse Only Ancillary [address] [place] [address] [place], Nurse Annual [address] [place] [address] 03/08/2024 2:30 PM EST Office Visit [address] [place] [phone] J[address]elyne Desai[address] [place] [address] Scheduled Procedures Name Priority Associated Diagnoses Date/Ti [...] Additional history exists CKD PHOS USE SMARTSET 84313 07/17/2024 06/0 05/2023, 07/03/2023, 11/16/2022, Additional history exists CKD HGB USE SMARTSET 06582 07/30/202408/15, 07/31/2023, 07/26/2023, Additional history exists DTaP,Tdap,and Td [...] this encounter Medical Devices Implanted Type Area Park Activities Coordinator Device Identifier Shelf Expiration Date Model / Serial / Lot Shaft Fibula 6cm [id number] - [id number] Implanted:Qty: 1 on 09/05/[place] [facility] [place] Human N/A: Spine Cervical MUSCULOSKELETAL TRANSPLANT FND 04/20/2010 [id number] / [id number] 0P / Stent Eso Gw 22x70 [id number] - [id number] Implanted:Qty: 1 on 01/21/2008 [place] [facility] [place] N/A: Esophagus ALVEOLUS INC 04/12/2009 08376-787 / / [id number] Depuy Uniplate 32 Implanted:Qty: 1 on 09[place]05/2008 [place] Neck 1773-06-146 / 1773-146 / Plate Zach 3 Level Ti 54mm - [id number] Implanted:Qty: 1 on 05/07/2010 [place] [facility] [place]/A: Neck JNJ : DEPUY SPINE [id number] 54 / / Screw Zach Const St Ti 14mm - [id number] Implanted:Qty: 4 on 05/07/2010 [place] [facility] N/A: Neck JNJ : DEPUY SPINE [id number] 14 / / Screw 3.5x14 Mntr Fa [id number] - [id number] Implanted:Qty: 8 on 05/07/2010 [place] [facility] [place] N/A: Spine Cervical JNJ : ETHICON CARDIOVATIONS [id number] / / Jarrell [id number] - [id number] Implanted:Qty: 1 on 05/07/2010 [place] [facility] [place] N/A: Spine Cervical JNJ : ETHICON CARDIOVATIONS [id number] / / Screw Inner Mntr [id number] - [id number] Implanted:Qty: 8 on 05/07/2010 [place] [facility] [place] N/A: Spine Cervical JNJ : ETHICON CARDIOVATIONS [id number] / / Envista Intraocular Lens Implanted:Qty: 1 on 03/10/2022 by Liang Marshall MD at OR [facility] Right: Eye BAUSCH & LOMB 08/13/2023 [id number] / [id number] / [id number] Envista Intraocular Lens Implanted:Qty: 1 on 03/24/2022 by Liang Marshall MD at OR [facility] Left: Eye BAUSCH & LOMB 07/13/2024 [id number] / [id number] / [id number] documented as of this encounter Procedures Procedure Name Priority Date/Time Associated Diagnosis Comments CHEMISTRY-OUTSIDE Routine 08/16/2023 documented in this encounter Results * (ABNORMAL) CHEMISTRY-OUTSIDE (08/16/2023) Not all results display below - see scan for full detail OUTSIDE LAB (SEE SCANNED REPORT) Comment:SCAN INCLUDES - CBC CREATININE-OUTSID E LAB OUTSIDE LAB (SEE SCANNED REPORT) EGFR-OUTSIDE LAB OUT SIDE LAB (SEE SCANNED REPORT) POTASSIUM-OUTSIDE LAB OUTSIDE LAB (SEE SCANNED REPORT) GLUCOSE-OUTSIDE LAB OUTSIDE LAB (SEE SCANNED REPORT) HOURS FASTING [...] LAB OUTSIDE LAB (SEE SCANNED REPORT) HEMOGLOBIN, D8F-JMUMGYR LAB OUTSIDE LAB (SEE SCANNED REPORT) PHOSPHORUS-OUTSID E LAB OUTSIDE LAB (SEE SCANNED REPORT) PTH-OUTSIDE LAB OUTS VAMSI LAB (SEE SCANNED REPORT) MICROALBUMIN RATIO-OUTSIDE LAB OUTSIDE LA B (SEE SCANNED REPORT) PROTEIN, UA-OUTSIDE LAB OUTSIDE LAB (SEE SCANNED REPORT) HGB 8.3(A) 13.5 - 18.0 GM/DL OUTSIDE LAB (SEE SCANNED REPORT) 08/16/2023 Jhony Aquino DPM LABORATORY OUTSIDE LAB (SEE SCANNED REPORT) documented in this encounter Advance Directives Documents on File Type Date Recorded 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 No Care Teams Manufacturing Technology Analyst Relationship Specialty Start Date End Date Jocelyne Desai DO [address] [place] [address] [place] [address] PCP - General Internal Medicine 11/09/16 documented as of this encounter
--- OUTSIDE RECORDS SUMMARY | 2023-10-21 16:40 | External Medical Summary ---
Author Name Unknown Address Unknown Organization K01:[facility] - [address] [place] [address] Laboratory Report Ordering Provider Test Date Status PAWEL VEGA 08/23/2023 12:46:19 Final Observation Date Value Abnormality Reference (Units ) Status PSA 08/23/2023 12:46:19 1.31 <4.10 (ng/ mL) Final Performing Location [facility] - [address] [place] [address]
--- OUTSIDE RECORDS SUMMARY | 2023-10-21 16:40 | External Medical Summary ---
Author Name Unknown Address Unknown Organization K01:LABORATORY [facility] [place] - [address] [facility] [address] Laboratory Report Ordering Provider Test Date Status SILVIAVALERIY WALTONON 08/23/2023 12:46:19 Final Observation Date Value Abnormality Reference (Units ) Status HbA1C 08/23/2023 12:46:19 6.3 Above high normal 4. 0-5.6 (%) Final The use of HbA1c to monitor glycemic status is based on normal hemoglobin and HbA composition. This test should not be used in patients with abnormal hemoglobin that affects the half life of the red blood cell or the in vivo glycation rates. Glucose, estimated average 08/23/2023 12:46:19 134 Above high normal <126 (mg/dL) Darrell serrano Performing Location LABORATORY [facility] - [address] [facility] [address]
--- OUTSIDE RECORDS SUMMARY | 2023-10-21 16:40 | External Medical Summary ---
Author Name Unknown Address Unknown Organization K01:[facility] - [address] [place] [address] Laboratory Report Ordering Provider Test Date Status SILVIAARMAS 08/23/2023 12:46:19 Final Observation Date Value Abnormality Reference (Units ) Status T4, Free 08/23/2023 12:46:19 1.2 0.9-1.7 (n g/dL) Final Performing Location [facility] - [address] [place] [address]
--- OUTSIDE RECORDS SUMMARY | 2023-10-21 16:40 | External Medical Summary ---
Author Name Unknown Address Unknown Organization K01:LABORATORY [place] [address] [place] [address] Laboratory Report Ordering Provider Test Date Status PAWEL VEGA 08/23/2023 12:46:19 Final Observation Date Value Abnormality Reference (Units ) Status Retic, % (auto) 08/23/2023 12:46:19 1.55 0.80-1.90 (%) Final Reticulocytes, Absolute 08/23/2023 12:46:19 49.3 31.3-100.1 (K/uL) Final Reticulocyte fraction, immature 08/23/2023 12:46:19 22.0 Above high normal 2.5-20.6 (%) Final Reticulocyte HGB 08/23/2023 12:46:19 25.5 Below low normal 29.7-37.4 (pg) Final Performing Location LABORATORY [facility] - [facility] [place] [address]
--- OUTSIDE RECORDS SUMMARY | 2023-10-21 16:40 | External Medical Summary ---
Author Name Unknown Address Unknown Organization K01:LABORATORY [facility] - [address] [place] [address] Laboratory Report Ordering Provider Test Date Status PAWEL VEGA 08/23/2023 12:46:19 Final Observation Date Value Abnormality Reference (Units ) Status WBC, Total 08/23/2023 12:46:19 3.55 Below low normal 4. 00-10.80 (K/uL) Final RBC 08/23/2023 12:46:19 3.09 4.50-5.25 (M/uL) Final Hemoglobin 08/23/2023 12:46:19 8.5 Below low normal 14 .0-16.8 (g/dL) Final Anemia reflex testing trigge rs on a HGB < 12.0 for Females and HGB < 13.0 for Males in accordance with the WHO Anemia Guidelines
Anemia reflex testing triggers on a HGB < 12.0 for Females and HGB < 13.0 for Males in accordance with the WHO Anemia Guidelines HCT 08/23/2023 12:46:19 26.9 Below low normal 40. 0-48.4 (%) Final MCV 08/23/2023 12:46:19 87.1 82.0-99.5 (fL) Final MCH 08/23/2023 12:46:19 27.5 27.0-34.0 (pg) Final MCHC 08/23/2023 12:46:19 31.6 32.0-36.0 (g/dL) Final RDW 08/23/2023 12:46:19 14.2 11.5-15.5 (%) Final Platelets 08/23/2023 12:46:19 236 140-400 (K /uL) Final MPV 08/23/2023 12:46:19 11.2 6.6-11.1 ( fL) Final Nucleated erythrocytes/100 leukocytes [Ratio] in Blood by Automated count 08/23/2023 12:46:19 0 <=0 (/100 WBCs) Final Performing Location LABORATORY [facility] - [address] [facility] [address]
--- OUTSIDE RECORDS SUMMARY | 2023-10-21 16:40 | External Medical Summary | Summary of Care ---
Author Name Unknown Organization [facility] Address [address] [facility] [place] [address] Phone [phone] Care Team Providers Care Spiral Binder Name Role Phone Jocelyne Desai DO Primary Care Provider [phone] Encounter Details Date Type Department Care Team (Late st Contact Info) Description 08/23/2023 Population Health External Data Unspecified Department Allergies [...] different from the original. Good connectivity [facility] for wound care [phone] Televideo if needed. 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 He has significant history DM and PVD and recommended he still follow up with podiatry,. Letter in chart from [facility] podiatry they were unable to [...] ICD-10 update of inactive term PLATT RESEARCH OTHER*[id number] 02/20/2007 ADVANCE DIRECTIVE INFORMATION 01/19/2005 Overview: Yes, [...] 11/17/19 23 LUMBAGO 12/24/2002 05/09/2007 LOC PRIM [id number] 12/24/200208/13 DEGENERATIVE SKIN DISORD 12/24/2002 VERTEBRAL FX [...] 11:50 AM EDT Office Visit Family Medicine [address] [place] [phone] [place] [address] 08/29/2023 6:30 AM EDT [facility], Ilya Lafleur [address] [place] [address] [place] [address] [place] [address] 08/31/2023 1:00 PM EDT Office Visit Family Medicine [address] [place] [phone] [place] Al PA-C [address] [place] [address] [place] [address] 11/20/2023 2:00 PM EDT Office Visit Nephrology [address] [place] [address] ZeMarycarmen alan PA-C [address] [place] [address] 02/20/2024 12:30 PM EST Nurse Only Ancillary [address] [place] [address] [place], Nurse Annual Wellness [address] [place] [address] [place] [address] 03/08/2024 2:30 PM EST Office Visit Family Medicine [address] [place] [phone] [address] [place] [address] Scheduled Procedures Name Priority Associated Diagnoses Date/Ti [...] Additional history exists CKD PHOS USE SMARTSET 89831 07/17/2024 06/0 05/2023, 07/03/2023, 11/16/2022, Additional history exists CKD HGB USE SMARTSET 00446 08/15/202408/15, 07/31/2023, 07/26/2023, Additional history exists DTaP,Tdap,and [...] this encounter Medical Devices Implanted Type Area High School History Teacher Device Identifier Shelf Expiration Date Model / Serial / Lot Shaft Fibula 6cm [id number] - [id number] Implanted:Qty: 1 on 09/05/2008 at [place] [facility] [place] Tissue - Human N/A: Spine Cervical MUSCULOSKELETAL TRANSPLANT FND 04/20/2010 [id number] / [id number] 0P / Stent Eso Gw 22x70 96844-207 - [id number] Implanted:Qty: 1 on 01/21/2008 at [place] [facility] [place] N/A: Esophagus [employer]VEOLUS INC 04/12/2009 28236-762 / / [id number] Depuy Uniplate 32 Implanted:Qty: 1 on 09/05/2008 [facility] [place] N/A: Neck 1773--146 / [id number] / Plate Zach 3 Level Ti 54mm - [id number] Implanted:Qty: 1 on 05/07/2010 at [place] [facility] [place] N/A: Neck JNJ : DEPUY SPINE [id number] 54 / / Screw Zach Const St Ti 14mm - [id number] Implanted:Qty: 4 on 05/07/2010 at [place] [facility] [place] N/A: Neck JNJ : DEPUY SPINE [id number] 14 / / Screw 3.5x14 Mntr Fa [id number] - [id number] Implanted:Qty: 8 on 05/07/2010 at [place] [facility] [place] N/A: Spine Cervical JNJ : ETHICON CARDIOVATIONS [id number] / / Jarrell [id number] - [id number] Implanted:Qty: 1 on 05/07/2010 at [place] [facility] [place] N/A: Spine Cervical JNJ : ETHICON CARDIOVATIONS [id number] / / Screw Inner Mntr [id number] - [id number] Implanted:Qty: 8 on 05/07/2010 at [place] [facility] [place] N/A: Spine Cervical JNJ : ETHICON CARDIOVATIONS [id number] / / Envista Intraocular Lens Implanted:Qty: 1 on 03/10/2022 by Liang Marshall MD at OR [facility] Right: Eye BAUSCH & LOMB 08/13/2023 [id number] / [id number] / [id number] Envista Intraocular Lens Implanted:Qty: 1 on 03/24/2022 by Liang Marshall MD at OR [facility] Left: Eye BAUSCH & LOMB 07/13/2024 [id number] / [id number] / [id number] documented as of this encounter Advance Directives Documents on File Type Date Recorded Patient Reading Instructor Torres ARREOLA 01/26/2021 [facility] FOR LIFE-SUSTAINING TREATMENT * No Code [...] Power of Attor andrew? No Care Teams Spiral Binder Relationship Specialty Start Date End Date Jocelyne Desai DO [address] [place] [address] [place] [address] PCP - General Internal Medicine 11/09/16 documented as of this encounter
--- OUTSIDE RECORDS SUMMARY | 2023-10-21 16:40 | External Medical Summary | Summary of Care ---
Author Name Unknown Organization [facility] Address [address] [facility] [place] [address] Phone [phone] Care Team Providers Care Banquet Food Server Name Role Phone DesaiElissaJocelynejohn Cunninghame DO Primary Care Provider + [phone] Reason for Visit * Reason Comments Dosage Adjustment Via Phone (anticoag Cl inic) Encounter Details Date Type Department Care Team (Late st Contact Info) Description 08/22/2023 6:30 AM EDT Anticoagulation [facility], Ilya Lafleur [address] [place] [address] [place] [address] [facility], [address] [place] [address] Chronic atrial fibrillation (HCC)* Allergies No known active allergiesdocumented as of this encounter (statuses as of 08/22/2023) Medications Medication Sig Dispensed Refills Start Date [...] as of this encounter (statuses as of 08/22/2023) Active Problems Patient Care Coordination No te Formatting of this note migh t be different from the original. Good connectivity [facility] for wound care [phone] Televideo if needed. Problem Noted Date Diagnosed [...] up with podiatry,. Letter in chart from [facility] podiatry they were unable to get [...] ICD-10 update of inactive term PLATT RESEARCH OTHER*[id number] 02/20/2007 ADVANCE DIRECTIVE INFORMATION 01/19/2005 Overview: Yes, Patient instructed to provide copy of advance directive for provider to review and to be scanned into Electronic Medical Record No, Advance Directive brochure given to patient at prior appointment. SPINAL STENOSIS-LUMBAR 09/23/2002 Vitamin D deficiency Cervical spinal stenosis documented as of this encounter (statuses as of 08/22/2023) Resolved Problems Problem Noted Date Diagnosed Date Resolved Date Depression, unspecified 11/09/2021 03/2 Depression, unspecified 11/09/2021 05/2022 Cellulitis of right leg 07/13/202105/2022 Last [...] 11/17/19 23 LUMBAGO 12/24/2002 05/09/2007 LOC PRIM [id number] 12/24/200208/13 DEGENERATIVE SKIN DISORD 12/24/2002 VERTEBRAL FX [...] as of this encounter (statuses as of 08/22/2023) Immunizations Name Administration Dates Next Due COVID-19 [...] this encounter Progress Notes * Madai Perera, fabric and accessories estimator - 08/22/2023 11:35 AM EDT Contacts Type Contact Phone/Fax 08/22/2023 11:34 AM EDT Phone (Outgoing) Lg Cooley "Akshat" (Self) [phone] (H) Spoke to Patient Subjective Patient Findings [...] communicated as noted by Pharmacist: AMOS Kinney 08/22/2023, 11:35 AM * Estefania Palacios RPh - 08/22/2023 9:16 AM EDT Coumadin Clinic (region specific) Objective Current Warfarin Dose As of 08/22/2023 Warfarin maintenance plan: 3 mg (3 mg x 1) every Sun, Tue, Mariel; 1.5 mg (3 mg x 0.5) all other days INR Result As of 08/22/2023 INR goal: 2.0-3.0 INR used for dosin.06 (08/21/2023) Assessment & Plan Warfarin Plan As of 08/22/2023 Full warfarin instructions: 3 mg every Sun, Tue, Mariel; 1.5 mg all other days No change documented: Estefania Palacios RPh Next INR check: 08/28/2023 Repeat PT/INR in 1 week(s) Weekly dose: not changed Additional Dosing Information: Description [facility] Nurses -- Mondays and Fridays ; fax - [phone] ([facility]) Tech to contact patient with dose instructions as noted. Estefania Palacios RPh 08/22/2023, 9:16 AM * Korin Meléndez PHARM Tech - 08/22/2023 9:08 AM EDT Received verbal result from Steve Lindo PH. Report to be faxed. Thank you, Korin Meléndez Planning Assistant [facility] ([facility]) [phone] 08/22/2023,9:09 AM documented in this encounter Plan of Treatment Upcoming Encounters Date Type Department Care Team (Late st Contact Info) Description 08/23/2023 11:50 AM EDT Office Visit [address] [place] [phone] Jocelyne Desai[address] [place] [address] 08/31/2023 1:00 PM EDT Office Visit [address] [place] [phone] Savanna Al PA-C [address] [place] [address] [place] [address] 11/20/2023 2:00 PM EDT Office Visit Nephrology [address] [place] [address] ZeaMrycarmen alan PA-C [address] [facility] [place] [address] 02/20/2024 12:30 PM EST Nurse Only Ancillary [address] [place] [address] [place], Nurse Annual Wellness [address] [place] [address] [place] [address] 03/08/2024 2:30 PM EST Office [address] [phone] Jocelyne Desai[address] [place] [address] Scheduled Procedures Name Priority Associated Diagnoses Date/Ti [...] Additional history exists CKD PHOS USE SMARTSET 30917 07/17/2024 06/0 05/2023, 07/03/2023, 11/16/2022, Additional history exists CKD HGB USE SMARTSET 99178 08/15/202408/15, 07/31/2023, 07/26/2023, Additional history exists DTaP,Tdap,and [...] this encounter Medical Devices Implanted Type Area Pan Washer Device Identifier Shelf Expiration Date Model / Serial / Lot Shaft Fibula 6cm [id number] - [id number] Implanted:Qty: 1 on 09/05/2008 at OR [facility] Tissue - Human N/A: Spine Cervical MUSCULOSKELETAL TRANSPLANT FND 04/20/2010 [id number] / [id number] 0P / Stent Eso Gw 22x70 [id number] - [id number] Implanted:Qty: 1 on 01/21/2008 at OR [facility] N/A: Esophagus AL[employer]US INC 04/12/2009 75033-156 / / [id number] Depuy Uniplate 32 Implanted:Qty: 1 on 09/05/2008 [...] Plate Zach 3 Level Ti 54mm - [id number] Implanted:Qty: 1 on 05/07/2010 at OR [facility] N/A: Neck JNJ : DEPUY SPINE [id number] / / Screw Zach Const St Ti 14mm - [id number] Implanted:Qty: 4 on 05/07/2010 at OR [facility] N/A: Neck JNJ : DEPUY SPINE [id number] 14 / / Screw 3.5x14 Mntr Fa [id number] - [id number] Implanted:Qty: 8 on 05/07/2010 at OR [facility] N/A: Spine Cervical JNJ : ETHICON CARDIOVATIONS [id number] / / Jarrell [id number] - [id number] Implanted:Qty: 1 on 05/07/2010 at OR [facility] N/A: Spine Cervical JNJ : ETHICON CARDIOVATIONS [id number] / / Screw Inner Mntr [id number] - [id number] Implanted:Qty: 8 on 05/07/2010 at OR [facility] N/A: Spine Cervical JNJ : ETHICON CARDIOVATIONS [id number] / / Envista Intraocular Lens Implanted:Qty: 1 on 03/10/2022 by Liang Marshall MD at OR [facility] Right: Eye BAUSCH & LOMB 08/13/2023 [id number] / [id number] / [id number] Envista Intraocular Lens Implanted:Qty: 1 on 03/24/2022 by Liang Marshall MD at OR [facility] Left: Eye BAUSCH & LOMB 07/13/2024 [id number] / [id number] / [id number] documented as of this encounter Procedures Procedure Name Priority Date/Time Associated Diagnosis Comments OUTSIDE LAB-PT/INR Routine 08/21/2023 documented in this encounter Results * OUTSIDE LAB-PT/INR (08/21/2023) INR-OUTSIDE LAB 2.06 History Per Patient LABORATORY documented in this encounter Visit Diagnoses Diagnosis Chronic atrial fibrillation (HCC)- Primary Atrial fibrillation documented in this encounter Advance Directives Documents on File Type Date Recorded Patient Decaler Expl anation POLST 01/26/2021 [place] OR [facility] FOR [...] Power of Attor andrew? No Care Teams Banquet Food Server Relationship Specialty Start Date End Date Jocelyne Desai DO [address] [place] [address] [place] [address] PCP - General Internal Medicine 11/09/16 documented as of this encounter
--- OUTSIDE RECORDS SUMMARY | 2023-10-21 16:40 | External Medical Summary | Summary of Care ---
Author Name Unknown Organization [facility] Address [address] [place] [address] Phone [phone] Care Team Providers Care Talent Acquisition Consultant Name Role Phone Jocelyne Desai DO Primary Care Provider + [phone] Encounter Details Date Type Department Care Team (Late st Contact Info) Description 08/21/2023 3:15 PM EDT Scheduled Telephone Care Coordination and Integration [address] [place], [place] [phone] Estefania Jaquez, Community Health Middle School Teacher [address] [place] [address] Allergies No known active allergiesdocumented as of [...] be different from the original. Good connectivity [facility] for wound care [phone] Televideo if needed. Problem Noted Date Diagnosed [...] podiatry,. Letter in chart from [facility] podiatry they were unable to get in [...] ICD-10 update of inactive term PLATT RESEARCH OTHER*[id number] 02/20/2007 ADVANCE DIRECTIVE INFORMATION 01/19/2005 Overview: Yes, [...] 11/17/19 23 LUMBAGO 12/24/2002 05/09/2007 LOC PRIM [id number] 12/24/200208/13 DEGENERATIVE SKIN DISORD 12/24/2002 VERTEBRAL FX [...] Progress Notes * Estefania Jaquez, Community Health Middle School Teacher - 08/21/2023 3:16 PM EDT Telemedicine visit: No Community Health Middle School Teacher (KELLY) documentation: CHW placed PC to patient per CM's request Patient reported that he now has a wound vac and that was put on at the wound clinic and HH is caring for this. No s/s of infection. He does have shortness of breath and he thinks its about the same however its hard to tell at times. CHW requested that he call the [facility] if he needs anything. Patient reported that he called Savannah several times and got her message that she retired andthat no one was currently available to return his call etc. CHW expressed understanding however still encouraged patient to call the clinic and it would get taken care of to not call Savannah's direct number like he has been. Patient reported that he has a doctors appointment Monday. Estefania Jaquez- Community Health Worker 1 Support Services/[employer] [email or web address] documented in this encounter Plan of Treatment Upcoming Encounters Date Type Department Care Team (Late st Contact Info) Description 08/22/2023 6:30 AM EDT Anticoagulation Centralized Clinical Pharmacy Services, [address] [place] [address] [facility], [address] [place] [address] 08/23/2023 11:50 AM EDT Office Visit Family Medicine [address] [place] [phone] Jocelyne Desai [address] [place] [address] 08/31/2023 1:00 PM EDT Office Visit Family Medicine [address] [place] [phone] Savanna Al PA-C [address] [place] [address] [place] [address] 11/20/2023 2:00 PM EDT Office Visit Nephrology [address] [place] [address] Marycarmen Kowalski PA-C [address] [place] [address] 02/20/2024 12:30 PM EST Nurse Only Ancillary [address] [place] [address] [place], Nurse Annual [address] [place] [address] 03/08/2024 2:30 PM EST Office Visit Family Medicine [address] [place] [phone] [place] [address] Scheduled Procedures Name Priority Associated Diagnoses Date/Ti [...] Additional history exists CKD PHOS USE SMARTSET 58021 07/17/2024 06/0 05/2023, 07/03/2023, 11/16/2022, Additional history exists CKD HGB USE SMARTSET 50918 08/15/202408/15, 07/31/2023, 07/26/2023, Additional history exists DTaP,Tdap,and [...] this encounter Medical Devices Implanted Type Area Slag Worker Device Identifier Shelf Expiration Date Model / Serial / Lot Shaft Fibula 6cm [id number] - [id number] Implanted:Qty: 1 on 09/05/2008 at OR [facility] [facility] Tissue - Human N/A: Spine Cervical MUSCULOSKELETAL TRANSPLANT FND 04/20/2010 [id number] / [id number] 0P / Stent Eso Gw 22x70 92034-570 - [id number] Implanted:Qty: 1 on 01/21/2008 at [place] [facility] [facility] N/A: Esophagus ALVEOLUS INC 04/12/2009 38443-683 / / [id number] Depuy Uniplate 32 Implanted:Qty: 1 on 09/05/2008 at OR [place] [...] Cage Implanted:Qty: 1 on 05/07/2010 at [place] [facility] [place] N/A: Neck 1773-06-146 / 1773-06-146 / Plate Zach 3 Level Ti 54mm - [id number] Implanted:Qty: 1 on 05/07/2010 at [place] [facility] [place] N/A: Neck JNJ : DEPUY SPINE [id number] 54 / / Screw Zach Const St Ti 14mm - [id number] Implanted:Qty: 4 on 05/07/2010 at [place] [facility] N/A: Neck JNJ : DEPUY SPINE [id number] 14 / / Screw 3.5x14 Mntr Fa [id number] - [id number] Implanted:Qty: 8 on 05/07/2010 at [place] [facility] [place] N/A: Spine Cervical JNJ : ETHICON CARDIOVATIONS [id number] / / Jarrell [id number] - [id number] Implanted:Qty: 1 on 05/07/2010 at [place] [facility] N/A: Spine Cervical JNJ : ETHICON CARDIOVATIONS [id number] / / Screw Inner Mntr [id number] - [id number] Implanted:Qty: 8 on 05/07/2010 at [place] [facility] [place] N/A: Spine Cervical JNJ : ETHICON CARDIOVATIONS [id number] / / Envista Intraocular Lens Implanted:Qty: 1 on 03/10/2022 by Liang Marshall MD at OR [facility] Right: Eye BAUSCH & LOMB 08/13/2023 [id number] / [id number] / [id number] Envista Intraocular Lens Implanted:Qty: 1 on 03/24/2022 by Liang Marshall MD at OR [facility] Left: Eye BAUSCH & LOMB 07/13/2024 [id number] / [id number] / [id number] documented as of this encounter Advance Directives Documents on File Type Date Recorded Patient Linen Aide Expl anation POL 01/26/2021 [place] OR [facility] FOR [...] Power of Attor andrew? No Care Teams Talent Acquisition Consultant Relationship Specialty Start Date End Date Jocelyne Desai DO [address] [place] [address] [place] [address] PCP - General Internal Medicine 11/09/16 documented as of this encounter
--- OUTSIDE RECORDS SUMMARY | 2023-10-21 16:40 | External Medical Summary ---
Author Name Unknown Address Unknown Organization [id number]:LABORATORY [facility] - [address] [place] [address] Laboratory Report Ordering Provider Test Date Status PAWEL VEGA 08/23/2023 12:46:19 Final Observation Date Value Abnormality Reference (Units ) Status Iron 08/23/2023 12:46:19 19 Below low normal 45-176 (ug/dL) Final Iron-binding capacity 08/23/2023 12:46:19 311 250-425 (ug/dL) Final Transferrin Sat % 08/23/2023 12:46:19 6 Below low normal 15-55 (%) Final Performing Location LABORATORY C - [address] [place] [address]
--- OUTSIDE RECORDS SUMMARY | 2023-10-21 16:40 | External Medical Summary | Summary of Care ---
Author Name Unknown Organization [facility] Address [address] [facility] [place] [address] Phone [phone] Care Team Providers Care Patch Machine Operator Name Role Phone Jocelyne Desai DO Primary Care Provider [phone] Encounter Details Date Type Department Care Team (Late st Contact Info) Description 08/22/2023 Population Health External Data Unspecified Department Allergies [...] [facility] for wound care [phone] Televideo if needed. Problem Noted Date Diagnosed [...] ICD-10 update of inactive term PLATT RESEARCH OTHER*[id number] 02/20/2007 ADVANCE DIRECTIVE INFORMATION 01/19/2005 Overview: Yes, [...] 05/31/2019 1005/2022 CSA (central sleep apnea) 12/05/[address] 03/02/201811/13 Kidney disease, chronic, [...] 11/17/19 23 LUMBAGO 12/24/2002 05/09/2007 LOC PRIM [id number] 12/24/200208/13 DEGENERATIVE SKIN DISORD 12/24/2002 VERTEBRAL FX [...] No 02/16/2023 Does the household have a veterans affairs medical centerr source of income? (Household - for ages [...] 08/23/2023 11:50 AM EDT Office Visit Family [address] [place] [phone] Jocelyne Desai DO [address] [place] [address] [place] [address] 08/31/2023 1:00 PM EDT Office Visit Family [address] [place] [phone] Savanna Al PA-C [address] [place] [address] [place] [address] 11/20/2023 2:00 PM EDT Office Visit Nephrology [address] [place] [address] ZeMarycarmen alan PA-C [address] [place] [address] 02/20/2024 12:30 PM EST Nurse Only Ancillary [address] [place] [address] [place], Nurse Annual [address] [place] [address] 03/08/2024 2:30 PM EST Office Visit Family Medicine [address] [place] [phone] [address] [place] [address] Scheduled Procedures Name Priority Associated Diagnoses Date/Ti [...] Additional history exists CKD PHOS USE SMARTSET 69218 07/17/2024 06/0 05/2023, 07/03/2023, 11/16/2022, Additional history exists CKD HGB USE SMARTSET 44689 08/15/202408/15, 07/31/2023, 07/26/2023, Additional history exists DTaP,Tdap,and [...] this encounter Medical Devices Implanted Type Area Legal Services Professional Device Identifier Shelf Expiration Date Model / Serial / Lot Shaft Fibula 6cm [id number] - [id number] Implanted:Qty: 1 on 09/05/2008 at OR [facility] Tissue - Human N/A: Spine Cervical MUSCULOSKELETAL TRANSPLANT FND 04/20/2010 [id number] / [id number] 0P / Stent Eso Gw 22x70 81610-090 - [id number] Implanted:Qty: 1 on 01/21/2008 at OR [facility] N/A: Esophagus ALVEOLUS INC 04/12/2009 68016-167 / / [id number] Depuy Uniplate 32 Implanted:Qty: 1 on 09/05/2008 at OR [facility] N/A: Spine Cervical TAMMY & TAMMY DEPUY 1896-03-302 / / Depuy Uniplate Screw 14mm Implanted:Qty: 2 on 09/05/2008 at OR [facility] N/A: Spine Cervical TAMMY & TAMMY DEPUY 1896-07-017 / / Depuy Lordotic [place] Cage Implanted:Qty: 1 on 05/07/2010 at OR [facility] N/A: Neck 1773-06-146 / 1773-146 / Plate Zach 3 Level Ti 54mm - [id number] Implanted:Qty: 1 on 05/07/2010 at OR [facility] N/A: Neck JNJ : DEPUY SPINE [id number] 54 / / Screw Zach Const St Ti 14mm - [id number] Implanted:Qty: 4 on 05/07/2010 at OR [facility] N/A: Neck JNJ : DEPUY SPINE [id number] 14 / / Screw 3.5x14 Mntr Fa [id number] - [id number] Implanted:Qty: 8 on 05/07/2010 at OR [facility] N/A: Spine Cervical JNJ : ETHICON CARDIOVATIONS [id number] / / Jarrell 3.5f016mn [id number] - [id number] Implanted:Qty: 1 on 05/07/2010 at OR [facility] N/A: Spine Cervical JNJ : ETHICON CARDIOVATIONS [id number] / / Screw Inner Mntr [id number] - [id number] Implanted:Qty: 8 on 05/07/2010 at OR [facility] N/A: Spine Cervical JNJ : ETHICON CARDIOVATIONS [id number] / / Envista Intraocular Lens Implanted:Qty: 1 on 03/10/2022 by Liang Marshall MD at OR [facility] Right: Eye BAUSCH & LOMB 08/13/2023 [id number] / [id number] / [id number] Envista Intraocular Lens Implanted:Qty: 1 on 03/24/2022 by Liang Marshall MD at OR [facility] Left: Eye BAUSCH & LOMB 07/13/2024 [id number] / [id number] / [id number] documented as of this encounter Advance Directives Documents on File Type Date Recorded Patient Housing Inspector Expl anation POLST 01/26/2021 [place] OR [facility] * No [...] Power of Attor andrew? No Care Teams Patch Machine Operator Relationship Specialty Start Date End Date Jocelyne Desai DO [address] [place] [address] [place] [address] PCP - General Internal Medicine 11/09/16 documented as of this encounter
--- OUTSIDE RECORDS SUMMARY | 2023-10-21 16:40 | External Medical Summary ---
Author Name Unknown Address Unknown Organization K01:LABORATORY [facility] - [address] [place] [address] Laboratory Report Ordering Provider Test Date Status VALERIY VEGAON 08/23/2023 12:46:19 Final Observation Date Value Abnormality Reference (Units ) Status TSH 08/23/2023 12:46:19 5.19 Above high normal 0. 27-4.20 (uIU/mL) Final Performing Location LABORATORY C - [address] [place] [address]
--- OUTSIDE RECORDS SUMMARY | 2023-10-21 16:40 | External Medical Summary ---
Author Name Unknown Address Unknown Organization K01:LABORATORY [facility] [place] - [address] [place] [address] Laboratory Report Ordering Provider Test Date Status PAWEL VEGA 08/23/2023 12:46:19 Final Observation Date Value Abnormality Reference (Units ) Status Ferritin 08/23/2023 12:46:19 116 30-400 (ng /mL) Final Performing Location LABORATORY [facility] - [address] [place] [address]
--- OUTSIDE RECORDS SUMMARY | 2023-10-21 16:40 | External Medical Summary ---
Author Name Unknown Address Unknown Organization K01:LABORATORY [facility] [place] [address] [facility] [place] [address] Laboratory Report Ordering Provider Test Date Status PAWEL VEGA 08/23/2023 12:46:19 Final Observation Date Value Abnormality Reference (Units ) Status BUN 08/23/2023 12:46:19 68 Above high normal 6-20 (mg/dL) Final Creatinine 08/23/2023 12:46:19 3.1 Above high normal 0.6-1.2 (mg/dL) Final Glomerular filtration rate/1.73 sq M.predicted [Volume Rate/Area] in Serum, Plasma or Blood by Creatinine-based formula (CKD-EPI) 08/23/2023 12:46:19 20 Below low normal >=60 (mL/min) Final eGFR is calculated based on the CKD-EPI 2020 equation Sodium 08/23/2023 12:46:19 133 Below low normal 135 -146 (mmol/L) Final Potassium 08/23/2023 12:46:19 3.2 Below low normal 3.5 -5.1 (mmol/L) Final Cl 08/23/2023 12:46:19 91 Below low normal 98- 107 (mmol/L) Final CO2 08/23/2023 12:46:19 24 22-32 (mmo l/L) Final Anion gap 08/23/2023 12:46:19 18 Above high normal 7- 15 (mmol/L) Final Glucose 08/23/2023 12:46:19 91 70-120 (mg /dL) Final Albumin 08/23/2023 12:46:19 3.8 3.8-5.0 (g /dL) Final AST (Aspartate aminotransferase) 08/23/2023 12:46:19 23 10-50 (U/L) Fin al Alk Phos 08/23/2023 12:46:19 78 35-130 (U/ L) Final Bilirubin, Total 08/23/2023 12:46:19 0.5 <=1 .2 (mg/dL) Final Calcium 08/23/2023 12:46:19 8.3 Below low normal 8.4 -10.2 (mg/dL) Final Protein 08/23/2023 12:46:19 7.1 6.0-8.3 (g /dL) Final ALT (Alanine aminotransferase) 08/23/2023 12:46:19 15 10-50 (U/L) Darrell serrano Performing Location LABORATORY [facility] - [address] [facility] [address]
--- OUTSIDE RECORDS SUMMARY | 2023-10-21 16:41 | External Medical Summary | Summary of Care ---
Author Name Unknown Organization [facility] Address [address] [facility] [place] [address] Phone [phone] Care Team Providers Care Spinner Hydraulic Name Role Phone Jocelyne Desai DO Primary Care Provider + [phone] Encounter Details Date Type Department Care Team (Late st Contact Info) Description 08/08/2023 Population Health External Data Unspecified Department Allergies No known active allergiesdocumented as of this encounter (statuses as of 08/08/2023) Medications Medication Sig Dispensed Refills Start Date [...] as of this encounter (statuses as of 08/08/2023) Active Problems Patient Care Coordination No te Formatting of this note migh t be different from the original. Good connectivity [facility] for wound care [phone] Televideo if needed. Problem Noted Date Diagnosed [...] with podiatry,. Letter in chart from [facility] podiatry they were unable to get [...] ICD-10 update of inactive term PLATT RESEARCH OTHER*[id number] 02/20/2007 ADVANCE DIRECTIVE INFORMATION 01/19/2005 Overview: Yes, Patient instructed to provide copy of advance directive for provider to review and to be scanned into Electronic Medical Record No, Advance Directive brochure given to patient at prior appointment. SPINAL STENOSIS-LUMBAR 09/23/2002 Vitamin D deficiency Cervical spinal stenosis documented as of this encounter (statuses as of 08/08/2023) Resolved Problems Problem Noted Date Diagnosed Date [...] 11/17/19 23 LUMBAGO 12/24/2002 05/09/2007 LOC PRIM [id number] 12/24/200208/13 DEGENERATIVE SKIN DISORD 12/24/2002 VERTEBRAL FX [...] as of this encounter (statuses as of 08/08/2023) Immunizations Name Administration Dates Next Due COVID-19 [...] Care Team (Late st Contact Info) Description 08/14/2023 10:20 AM EDT Office Visit Family Medicine [address] [phone] Savanna Al PA-C [address] [place] [address] [place] [address] 08/31/2023 1:00 PM EDT Office Visit Family Medicine [address] [place] [phone] Savanna Al PA-C [address] [place] [address] [place] [address] 11/20/2023 2:00 PM EDT Office Visit Nephrology [address] [place] [address] Marycarmen Kowaslki PA-C [facility] [address] 02/20/2024 12:30 PM EST Nurse Only Ancillary [address] [place] [address] [place], Nurse Annual [address] [place] [address] 03/08/2024 2:30 PM EST Office Visit Family [address] [place] [phone] Jocelyne Desai, [address] [place] [address] Scheduled Procedures Name Priority Associated Diagnoses Date/Ti [...] 11/22/2017, Additional history exists GFR 01/30/2024 07/31/2023, 0603/2023, 07/18/2023, Additional history exists Depression Screening 02/17/2024 02/16/2023 Albumin/Creatinine Ratio 07/17/2024 024, 11/16/2022, 05/13/2022, Additional history exists CKD PHOS USE SMARTSET 42404 07/17/2024 06/0 05/2023, 07/03/2023, 11/16/2022, Additional history exists CKD HGB USE SMARTSET 00402 07/30/202407/30, 07/26/2023, 07/18/2023, Additional history exists DTaP,Tdap,and Td [...] this encounter Medical Devices Implanted Type Area Project Management Engineer Device Identifier Shelf Expiration Date Model / Serial / Lot Shaft Fibula 6cm [id number] - [id number] Implanted:Qty: 1 on 09/05/2008 at OR [facility] Tissue - Human N/A: Spine Cervical MUSCULOSKELETAL TRANSPLANT FND 04/20/2010 [id number] / [id number] 0P / Stent Eso Gw 22x70 22840-597 - [id number] Implanted:Qty: 1 on 01/21/2008 at OR [facility] N/A: Esophagus [employer] 04/12/2009 27257-911 / / [id number] Depuy Uniplate 32 Implanted:Qty: 1 on 09/05/2008 at OR [facility] N/A: Spine Cervical TAMMY & TAMMY DEPUY 1897-02-302 / / Depuy Uniplate Screw 14mm Implanted:Qty: 2 on 09/05/2008 at OR [facility] N/A: Spine Cervical TAMMY & TAMMY DEPUY 1897-06-017 / / Depuy Lordotic Bengal Cage Implanted:Qty: 1 on 05/07/2010 at OR [facility] N/A: Neck 1773--146 / [id number] / Plate Zach 3 Level Ti 54mm - [id number] Implanted:Qty: 1 on 05/07/2010 at OR [facility] N/A: Neck JNJ : DEPUY SPINE [id number] / / Screw Zach Const St Ti 14mm - [id number] Implanted:Qty: 4 on 05/07/2010 at OR [facility] N/A: Neck JNJ : DEPUY SPINE [id number] 14 / / Screw 3.5x14 Mntr Fa [id number] - [id number] Implanted:Qty: 8 on 05/07/2010 at OR [facility] N/A: Spine Cervical JNJ : ETHICON CARDIOVATIONS [id number] / / Jarrell [id number] - [id number] Implanted:Qty: 1 on 05/07/2010 at OR [facility] N/A: Spine Cervical JNJ : ETHICON CARDIOVATIONS [id number] / / Screw Inner Mntr [id number] - [id number] Implanted:Qty: 8 on 05/07/2010 at OR [facility] N/A: Spine Cervical JNJ : ETHICON CARDIOVATIONS [id number] / / Envista Intraocular Lens Implanted:Qty: 1 on 03/10/2022 by Liang Marshall MD at OR [facility] Right: Eye BAUSCH & LOMB 08/13/2023 [id number] / [id number] / [id number] Envista Intraocular Lens Implanted:Qty: 1 on 03/24/2022 by Liang Marshall MD at OR [facility] Left: Eye BAUSCH & LOMB 07/13/2024 [id number] / [id number] / [id number] documented as of this encounter Advance Directives Documents on File Type Date Recorded Patient Facility Operations Manager Expl anation POLST 01/26/2021 [place] OR [facility] FOR LIFE-SUSTAINING [...] Power of Attor andrew? No Care Teams Spinner Hydraulic Relationship Specialty Start Date End Date Jocelyne Desai DO NPI: [id number] [place] [address] [place] [address] PCP - General Internal Medicine 11/09/16 documented as of this encounter
--- OUTSIDE RECORDS SUMMARY | 2023-10-21 16:41 | External Medical Summary | Summary of Care ---
Author Name Unknown Organization [facility] Address [address] [facility] [place] [address] Phone [phone] Care Team Providers Care Glassware Finisher Name Role Phone Jocelyne Desai DO Primary Care Provider + [phone] Encounter Details Date Type Department Care Team (Late st Contact Info) Description 08/07/2023 Population Health External Data Unspecified Department Allergies No known active allergiesdocumented as of this encounter (statuses as of 08/07/2023) Medications Medication Sig Dispensed Refills Start Date [...] as of this encounter (statuses as of 08/07/2023) Active Problems Patient Care Coordination No te Formatting of this note migh t be different from the original. Good connectivity [facility] for wound care [phone] Televideo if needed. Problem Noted Date Diagnosed [...] ICD-10 update of inactive term PLATT RESEARCH OTHER*[id number] 02/20/2007 ADVANCE DIRECTIVE INFORMATION 01/19/2005 Overview: Yes, Patient instructed to provide copy of advance directive for provider to review and to be scanned into Electronic Medical Record No, Advance Directive brochure given to patient at prior appointment. SPINAL STENOSIS-LUMBAR 09/23/2002 Vitamin D deficiency Cervical spinal stenosis documented as of this encounter (statuses as of 08/07/2023) Resolved Problems Problem Noted Date Diagnosed Date Resolved Date Depression, unspecified 11/09/2021 03/2 Depression, unspecified 11/09/202105/2022 Cellulitis of right leg 07/13/202105/2022 Last Assessment & Plan: Suspect this could be early/localized. Will treat with 7 days antibiotic. If pt cannot be reassess by Dr. Braxton office early next week will need [facility] provider recheck Multiple and open wound [...] 11/17/19 23 LUMBAGO 12/24/2002 05/09/2007 LOC PRIM [id number] 12/24/200208/13 DEGENERATIVE SKIN DISORD 12/24/2002 VERTEBRAL FX [...] as of this encounter (statuses as of 08/07/2023) Immunizations Name Administration Dates Next Due COVID-19 [...] Care Team (Late st Contact Info) Description 08/09/2023 11:50 AM EDT Office Visit Family Medicine [address] [phone] Desai, Jocelyne Briggs[address] [place] [address] 08/31/2023 1:00 PM EDT Office Visit Family Medicine [address] [place] [phone] Savanna Al PA-C [address] [place] [address] [place] [address] 11/20/2023 2:00 PM EDT Office Visit Nephrology [address] [place] [address] ZeMarycarmen alan PA-C [address] [place] [address] 02/20/2024 12:30 PM EST Nurse Only Ancillary [address] [place] [address] [place], Nurse Annual Wellness [address] [place] [address] [place] [address] 03/08/2024 2:30 PM EST Office Visit [address] [place] [phone] Jocelyne Desai[address] [place] [address] Scheduled Procedures Name Priority Associated Diagnoses Date/Ti [...] Additional history exists CKD PHOS USE SMARTSET 90289 07/17/2024 06/0 05/2023, 07/03/2023, 11/16/2022, Additional history exists CKD HGB USE SMARTSET 49810 07/30/202407/30, 07/26/2023, 07/18/2023, Additional history exists DTaP,Tdap,and [...] this encounter Medical Devices Implanted Type Area Tail Edger Device Identifier Shelf Expiration Date Model / Serial / Lot Shaft Fibula 6cm [id number] - [id number] Implanted:Qty: 1 on 09/05/2008 at OR [facility] Tissue - Human N/A: Spine Cervical MUSCULOSKELETAL TRANSPLANT FND 04/20/2010 [id number] / [id number] 0P / Stent Eso Gw 22x70 51813-695 - [id number] Implanted:Qty: 1 on 01/21/2008 at OR [facility] N/A: Esophagus [employer] 04/12/2009 47123-642 / / [id number] Depuy Uniplate 32 Implanted:Qty: 1 on 09/05/2008 [...] [facility] N/A: Neck 1773--146 / [id number] / Plate Zach 3 Level Ti 54mm - [id number] Implanted:Qty: 1 on 05/07/2010 at OR [facility] N/A: Neck JNJ : DEPUY SPINE [id number] / / Screw Zach Const St Ti 14mm - [id number] Implanted:Qty: 4 on 05/07/2010 at OR [facility] N/A: Neck JNJ : DEPUY SPINE [id number] 14 / / Screw 3.5x14 Mntr Fa [id number] - [id number] Implanted:Qty: 8 on 05/07/2010 at OR [facility] N/A: Spine Cervical JNJ : ETHICON CARDIOVATIONS [id number] / / Jarrell [id number] - [id number] Implanted:Qty: 1 on 05/07/2010 at OR [facility] N/A: Spine Cervical JNJ : ETHICON CARDIOVATIONS [id number] / / Screw Inner Mntr [id number] - [id number] Implanted:Qty: 8 on 05/07/2010 at OR [facility] N/A: Spine Cervical JNJ : ETHICON CARDIOVATIONS [id number] / / Envista Intraocular Lens Implanted:Qty: 1 on 03/10/2022 by Liang Marshall MD at OR [facility] Right: Eye BAUSCH & LOMB 08/13/2023 [id number] / [id number] / [id number] Envista Intraocular Lens Implanted:Qty: 1 on 03/24/2022 by Liang Marshall MD at OR [facility] Left: Eye BAUSCH & LOMB 07/13/2024 [id number] / [id number] / [id number] documented as of this encounter Advance Directives Documents on File Type Date Recorded Patient Flake Cutter Operator Torres ARREOLA 01/26/2021 [place] OR [facility] FOR LIFE-SUSTAINING [...] Power of Attor andrew? No Care Teams Glassware Finisher Relationship Specialty Start Date End Date Jocelyne Desai DO [address] [place] [address] [place] [address] PCP - General Internal Medicine 11/09/16 documented as of this encounter
--- OUTSIDE RECORDS SUMMARY | 2023-10-21 16:41 | External Medical Summary | Summary of Care ---
Author Name Unknown Organization [facility] Address [address] [facility] [place] [address] Phone [phone] Care Team Providers Care Wire Taper Name Role Phone Jocelyne Desai Primary Care Provider [phone] Encounter Details Date Type Department Care Team (Late st Contact Info) Description 08/14/2023 Result Scan Unspecified Department Estefania Palacios, [facility] [address] [place] [address] <No scans attached> Allergies No known active allergiesdocumented as of this encounter (statuses as of 08/15/2023) Medications Medication Sig Dispensed Refills Start Date [...] as of this encounter (statuses as of 08/15/2023) Active Problems Patient Care Coordination No te Formatting of this note migh t be different from the original. Good connectivity [facility] for wound care [phone] Televideo if needed. Problem Noted Date Diagnosed [...] ICD-10 update of inactive term PLATT RESEARCH OTHER*[id number] 02/20/2007 ADVANCE DIRECTIVE INFORMATION 01/19/2005 Overview: Yes, Patient instructed to provide copy of advance directive for provider to review and to be scanned into Electronic Medical Record No, Advance Directive brochure given to patient at prior appointment. SPINAL STENOSIS-LUMBAR 09/23/2002 Vitamin D deficiency Cervical spinal stenosis documented as of this encounter (statuses as of 08/15/2023) Resolved Problems Problem Noted Date Diagnosed Date [...] 11/17/19 23 LUMBAGO 12/24/2002 05/09/2007 LOC PRIM [id number] 12/24/200208/13 DEGENERATIVE SKIN DISORD 12/24/2002 VERTEBRAL FX [...] as of this encounter (statuses as of 08/15/2023) Immunizations Name Administration Dates Next Due COVID-19 [...] Care Team (Late st Contact Info) Description 08/15/2023 6:15 PM EDT Anticoagulation [facility], Ilya Lafleur [address] [place] [address] [place] [address] [place] [address] Chronic atrial fibrillation (HCC)* 08/23/2023 11:50 AM EDT Office Visit [address] [place] [phone] Jocely[address] Des[address] [place] [address] 08/31/2023 1:00 PM EDT Office Visit [address] [place] [phone] Savanna Al PA-C [address] [place] [address] [place] [address] 11/20/2023 2:00 PM EDT Office Visit Nephrology [address] [place] [address] ZeMarycarmen alan PA-C [address] [place] [address] 02/20/2024 12:30 PM EST Nurse Only Ancillary [address] [place] [address] [place], Nurse Annual Wellness [address] [place] [address] [place] [address] 03/08/2024 2:30 PM EST Office Visit [address] [place] [phone] [address] [place] [address] Scheduled Procedures Name Priority Associated Diagnoses Date/Ti [...] Additional history exists CKD PHOS USE SMARTSET 45948 07/17/2024 06/0 05/2023, 07/03/2023, 11/16/2022, Additional history exists CKD HGB USE SMARTSET 74538 07/30/202407/30, 07/26/2023, 07/18/2023, Additional history exists DTaP,Tdap,and Td Vaccines (3 - Td or Tdap) 12/01/2028 12/01/2018, 10/11/2007 Colonoscopy 09/09/2031 09/08/2021, 08/14, 09/23/2010 Colorectal Cancer Screening 09/09/2031 Hepatitis B Completed 11/11/2002, 05/15, 05/13/2002 Pneumococcal Vaccine: 65+ Years Completed 11/27/2018, 11/01/2017, 09/28/2005 Zoster Vaccines Completed 01/08/2019, 10/04/2018 GARDASIL-HPV IMMUNIZATION SERIES Aged Out No longer eligible based on patient's age to complete this topic MENINGOCOCCAL (MENACTRA/MENVEO) Aged Out No longer eligible based on patient's age to complete this topic documented as of this encounter Medical Devices Implanted Type Area Wireless Cellular Technician Device Identifier Shelf Expiration Date Model / Serial / Lot Shaft Fibula 6cm [id number] - [id number] Implanted:Qty: 1 on 09/05/2008 at OR [facility] Tissue - Human N/A: Spine Cervical MUSCULOSKELETAL TRANSPLANT FND 04/20/2010 459409 / [id number] 0P / Stent Eso Gw 22x70 02977-028 - [id number] Implanted:Qty: 1 on 01/21/2008 at OR [facility] N/A: Esophagus [employer]US INC 04/12/2009 79896-418 / / [id number] Depuy Uniplate 32 Implanted:Qty: 1 on 09/05/2008 [...] [facility] [place] N/A: Neck 1773-06-146 / 1773--146 / Plate Zach 3 Level Ti 54mm - [id number] Implanted:Qty: 1 on 05/07/2010 at OR [facility] N/A: Neck JNJ : DEPUY SPINE [id number] 54 / / Screw Zach Const St Ti 14mm - [id number] Implanted:Qty: 4 on 05/07/2010 at OR [facility] N/A: Neck JNJ : DEPUY SPINE [id number] 14 / / Screw 3.5x14 Mntr Fa [id number] - [id number] Implanted:Qty: 8 on 05/07/2010 at OR [facility] N/A: Spine Cervical JNJ : ETHICON CARDIOVATIONS [id number] / / Jarrell [id number] - [id number] Implanted:Qty: 1 on 05/07/2010 at OR [facility] N/A: Spine Cervical JNJ : ETHICON CARDIOVATIONS [id number] / / Screw Inner Mntr [id number] - [id number] Implanted:Qty: 8 on 05/07/2010 at OR [facility] N/A: Spine Cervical JNJ : ETHICON CARDIOVATIONS [id number] / / Envista Intraocular Lens Implanted:Qty: 1 on 03/10/2022 by Liang Marshall MD at OR [facility] Right: Eye BAUSCH & LOMB 08/13/2023 [id number] / [id number] / [id number] Envista Intraocular Lens Implanted:Qty: 1 on 03/24/2022 by [facility] Left: Eye BAUSCH & LOMB 07/13/2024 [id number] / [id number] / [id number] documented as of this encounter Procedures Procedure Name Priority Date/Time Associated Diagnosis Comments OUTSIDE LAB RESULTS 08/14/2023 documented in this encounter Results * OUTSIDE LAB RESULTS (08/14/2023) 08/14/2023 Estefania Palacios [facility] LABORATORY documented in this encounter Advance Directives Documents on File Type Date Recorded Patient Pot Maker Expl anation POLST 01/26/2021 [place] OR [facility] FOR LIFE-SUSTAINING TREATMENT [...] patient have Health Care Power of Attor nadrew? No * Full Code Date Activated Date [...] Power of Attor andrew? No Care Teams Wire Taper Relationship Specialty Start Date End Date Jocelyne Desai DO [address] [place] [address] [place] [address] PCP - General Internal Medicine 11/09/16 documented as of this encounter
--- OUTSIDE RECORDS SUMMARY | 2023-10-21 16:41 | External Medical Summary | Summary of Care ---
Author Name Unknown Organization [facility] Address [address] [facility] [place] [address] Phone [phone] Care Team Providers Care Cardiac Monitor Technician Name Role Phone Jocelyne Desai DO Primary Care Provider Reason for Visit * Reason Onset Date Comments Home Health 08/08/2023 Encounter Details Date Type Department Care Team (Late st Contact Info) Description 08/08/2023 Telephone Family Medicine [address] [place] [phone] Jocelyne Desai DO [address] [place] [address] [place] [address] Home Health Allergies No known active allergiesdocumented as of this encounter (statuses as of 08/11/2023) Medications Medication Sig Dispensed Refills Start Date [...] as of this encounter (statuses as of 08/11/2023) Active Problems Patient Care Coordination No te Formatting of this note migh t be different from the original. Good connectivity [facility] for wound care [phone] Televideo if needed. Problem Noted Date Diagnosed [...] up with podiatry,. Letter in chart from [facility] podiatry they were unable to get [...] ICD-10 update of inactive term PLATT RESEARCH OTHER*[id number] 02/20/2007 ADVANCE DIRECTIVE INFORMATION 01/19/2005 Overview: Yes, Patient instructed to provide copy of advance directive for provider to review and to be scanned into Electronic Medical Record No, Advance Directive brochure given to patient at prior appointment. SPINAL STENOSIS-LUMBAR 09/23/2002 Vitamin D deficiency Cervical spinal stenosis documented as of this encounter (statuses as of 08/11/2023) Resolved Problems Problem Noted Date Diagnosed Date Resolved Date Depression, unspecified 11/09/2021 03/2 Depression, unspecified 11/09/2021 100 05/2022 Cellulitis of right leg 07/13/202105/2022 Last Assessment & Plan: Suspect this could be early/localized. Will treat with 7 days antibiotic. If pt cannot be reassess by Dr. Braxton office early next week will need [facility] provider recheck Multiple and open [...] 11/17/19 23 LUMBAGO 12/24/2002 05/09/2007 LOC PRIM [id number] 12/24/200208/13 DEGENERATIVE SKIN DISORD 12/24/2002 VERTEBRAL FX [...] as of this encounter (statuses as of 08/11/2023) Immunizations Name Administration Dates Next Due COVID-19 mRNA, LNP-s, No Pre serve, 2-Dose Series (Moderna) 03/19/2020 COVID-19 mRNA, LNP-s, No Pre serve, 2-Dose Series (Pfizer) 02/16/2021,04/09/2020,03/19/2020 COVID-19, MRNA-LNP, 23-24, P F, 30 MCG/0.3 mL, 12 YRS AND ABOVE, IM (PFIZER-ComirnatEl Corral) 11/16/2022 Covid-19, Mrna, Lnp-s, Pf, B ivalent, [...] encounter Miscellaneous Notes * Telephone Encounter - Kevin Grimaldo OSA - 08/11/2023 11:25 AM EDT Pt called to see if he could get a later time on his chel on August 13. He has a package coming to his home and need to be there to sign, Anything after 12pm would be great. Please call to let pt know if able to change [phone] * Telephone Encounter - Sherron Smyth LPN - 08/08/2023 11:42 AM EDT HH Admission/Start of Care Admission/Start of Care: Anabelle PUENTE, Calling from: [facility] Patient was Admitted to: [facility], for: wound uti from 07/31 to 08/06 Referral ordered by: [facility] Referral received for: [facility] Planned start of care date:Yes, Date 08/07 Vitals: T97.7 P68 RR18 BP122/64 SP O299 Ra Lung sounds clear Weight na Blood sugar n/a Narrative: would tx is daily but her refused the treatment to heel. He does see wound clinic tomorrow. They will call with any updates or additional concerns from the upcoming HH visit. Last Office Visit: 07/17/2023 Has patient been scheduled or seen in the office for a follow up visit: Yes- on08/13 Advised that orders will be signed by PCP and to fax to the office for signature. documented in this encounter Plan of Treatment Upcoming Encounters Date Type Department Care Team (Late st Contact Info) Description 08/14/2023 10:20 AM EDT Office Visit Family Medicine [address] [place] [phone] Savanna Al PA-C [address] [place] [address] [place] [address] 08/15/2023 6:15 PM EDT Anticoagulation [facility], Ilya Lafleur [address] [place] [address] [place] [address] Ccps, [address] [place] [address] 08/31/2023 1:00 PM EDT Office Visit Family [address] [place] [phone] Savanna Al PA-C [address] [place] [address] [place] [address] 11/20/2023 2:00 PM EDT Office Visit Nephrology [address] [place] [address] Marycarmen Kowalski PA-C [address] [place] [address] 02/20/2024 12:30 PM EST Nurse Only Ancillary [address] [place] [address] [place], Nurse Annual Wellness [address] [place] [address] [place] [address] 03/08/2024 2:30 PM EST Office Visit [address] [place] [phone] Jocelyne Desai, [address] [place] [address] Scheduled Procedures Name Priority Associated Diagnoses Date/Ti [...] Additional history exists CKD PHOS USE SMARTSET 93655 07/17/2024 06/0 05/2023, 07/03/2023, 11/16/2022, Additional history exists CKD HGB USE SMARTSET 68540 07/30/202407/30, 07/26/2023, 07/18/2023, Additional history exists DTaP,Tdap,and [...] encounter Medical Devices Implanted Type Area Supervisor Production Managing Device Identifier Shelf Expiration Date Model / Serial / Lot Shaft Fibula 6cm [id number] - [id number] Implanted:Qty: 1 on 09/05/2008 at [place] [facility] [place] Tissue - Human N/A: Spine Cervical MUSCULOSKELETAL TRANSPLANT FND 04/20/2010 [id number] / [id number] 0P / Stent Eso Gw 22x70 [id number] - [id number] Implanted:Qty: 1 on 01/21/2008 at [place] [facility] [place] N/A: Esophagus AL[employer]US INC 04/12/2009 33278-625 / / [id number] Depuy Uniplate 32 Implanted:Qty: 1 on 09/05/2008 [...] [facility] [place] N/A: Neck 1773-06-146 / 1773--146 / Plate Zach 3 Level Ti 54mm - [id number] Implanted:Qty: 1 on 05/07/2010 at [place] [facility] [place] N/A: Neck JNJ : DEPUY SPINE [id number] 54 / / Screw Zach Const St Ti 14mm - [id number] Implanted:Qty: 4 on 05/07/2010 at [place] [facility] [place] N/A: Neck JNJ : DEPUY SPINE [id number] / / Screw 3.5x14 Mntr Fa [id number] - [id number] Implanted:Qty: 8 on 05/07/2010 at [place] [facility] [place] N/A: Spine Cervical JNJ : ETHICON CARDIOVATIONS [id number] / / Jarrell [id number] - [id number] Implanted:Qty: 1 on 05/07/2010 at [place] [facility] [place] N/A: Spine Cervical JNJ : ETHICON CARDIOVATIONS [id number] / / Screw Inner Mntr [id number] - [id number] Implanted:Qty: 8 on 05/07/2010 at [place] [facility] [place] N/A: Spine Cervical JNJ : ETHICON CARDIOVATIONS [id number] / / Envista Intraocular Lens Implanted:Qty: 1 on 03/10/2022 by Liang Marshall MD at OR [facility] Right: Eye BAUSCH & LOMB 08/13/2023 [id number] / [id number] / [id number] Envista Intraocular Lens Implanted:Qty: 1 on 03/24/2022 by Liang Marshall MD at OR [facility] Left: Eye BAUSCH & LOMB 07/13/2024 [id number] / [id number] / [id number] documented as of this encounter Advance Directives Documents on File Type Date Recorded Patient Media Aid Expl anation POLST 01/26/2021 [facility] FOR LIFE-SUSTAINING TREATMENT * No Code [...] Power of Attor andrew? No Care Teams Cardiac Monitor Technician Relationship Specialty Start Date End Date Jocelyne Desai DO [address] [place] [address] [place] [phone] PCP - General Internal Medicine 11/09/16 documented as of this encounter
--- OUTSIDE RECORDS SUMMARY | 2023-10-21 16:41 | External Medical Summary | Summary of Care ---
Author Name Unknown Organization [facility] Address [address] [facility] [place] [address] Phone [phone] Care Team Providers Care Neurology Technologist Name Role Phone Jocelyne Desai DO Primary Care Provider + [phone] Encounter Details Date Type Department Care Team (Late st Contact Info) Description 08/04/2023 Population Health External Data Unspecified Department Allergies No known active allergiesdocumented as of this encounter (statuses as of 08/04/2023) Medications Medication Sig Dispensed Refills Start Date [...] as of this encounter (statuses as of 08/04/2023) Active Problems Patient Care Coordination No te Formatting of this note migh t be different from the original. Good connectivity [facility] for wound care [phone] Televideo if needed. Problem Noted Date Diagnosed [...] with podiatry,. Letter in chart from [facility] podiatry they were unable to get [...] ICD-10 update of inactive term PLATT RESEARCH OTHER*[id number] 02/20/2007 ADVANCE DIRECTIVE INFORMATION 01/19/2005 Overview: Yes, Patient instructed to provide copy of advance directive for provider to review and to be scanned into Electronic Medical Record No, Advance Directive brochure given to patient at prior appointment. SPINAL STENOSIS-LUMBAR 09/23/2002 Vitamin D deficiency Cervical spinal stenosis documented as of this encounter (statuses as of 08/04/2023) Resolved Problems Problem Noted Date Diagnosed Date [...] 11/17/19 23 LUMBAGO 12/24/2002 05/09/2007 LOC PRIM [id number] 12/24/200208/13 DEGENERATIVE SKIN DISORD 12/24/2002 VERTEBRAL FX [...] as of this encounter (statuses as of 08/04/2023) Immunizations Name Administration Dates Next Due COVID-19 [...] Team (Late st Contact Info) Description 08/31/2023 1:00 PM EDT Office Visit Family Medicine [address] [phone] Savanna Al PA-C [address] [place] [address] [place] [address] 11/20/2023 2:00 PM EDT Office Visit Nephrology [address] [place] [address] Marycarmen Kowalski PA-C [address] [place] [address] 02/20/2024 12:30 PM EST Nurse Only Ancillary [address] [place] [address] [place], Nurse Annual [address] [place] [address] 03/08/2024 2:30 PM EST Office Visit Family Medicine [address] [place] [phone] Jocelyne Desai, [address] [place] [address] Scheduled Procedures Name Priority Associated Diagnoses Date/Ti [...] Additional history exists CKD PHOS USE SMARTSET 03037 07/17/2024 06/0 05/2023, 07/03/2023, 11/16/2022, Additional history exists CKD HGB USE SMARTSET 96935 07/30/202407/30, 07/26/2023, 07/18/2023, Additional history exists DTaP,Tdap,and [...] this encounter Medical Devices Implanted Type Area Toll Ticket Clerk Device Identifier Shelf Expiration Date Model / Serial / Lot Shaft Fibula 6cm [id number] - [id number] Implanted:Qty: 1 on 09/05/2008 at [place] [facility] [place] Tissue - Human N/A: Spine Cervical MUSCULOSKELETAL TRANSPLANT FND 04/20/2010 [id number] / [id number] 0P / Stent Eso Gw 22x70 14947-718 - [id number] Implanted:Qty: 1 on 01/21/2008 at [place] [facility] [place] N/A: Esophagus [employer]US INC 04/12/2009 51186-329 / / [id number] Depuy Uniplate 32 Implanted:Qty: 1 on 09/05/2008 [...] [facility] N/A: Neck 1773-06-146 / 1773-146 / Plate Zach 3 Level Ti 54mm - [id number] Implanted:Qty: 1 on 05/07/2010 at [place] [facility] [place] N/A: Neck JNJ : DEPUY SPINE [id number] 54 / / Screw Zach Const St Ti 14mm - [id number] Implanted:Qty: 4 on 05/07/2010 at [place] [facility] [place] N/A: Neck JNJ : DEPUY SPINE [id number] 14 / / Screw 3.5x14 Mntr Fa [id number] - [id number] Implanted:Qty: 8 on 05/07/2010 at [place] [facility] [place] N/A: Spine Cervical JNJ : ETHICON CARDIOVATIONS [id number] / / Jarrell [id number] - [id number] Implanted:Qty: 1 on 05/07/2010 at [place] [facility] [place] N/A: Spine Cervical JNJ : ETHICON CARDIOVATIONS [id number] / / Screw Inner Mntr [id number] - [id number] Implanted:Qty: 8 on 05/07/2010 at [place] [facility] [place] N/A: Spine Cervical JNJ : ETHICON CARDIOVATIONS [id number] / / Envista Intraocular Lens Implanted:Qty: 1 on 03/10/2022 by Liang Marshall MD at OR [facility] Right: Eye BAUSCH & LOMB 08/13/2023 [id number] / [id number] / [id number] Envista Intraocular Lens Implanted:Qty: 1 on 03/24/2022 by Liang Marshall MD at OR [facility] Left: Eye BAUSCH & LOMB 07/13/2024 [id number] / [id number] / [id number] documented as of this encounter Advance Directives Documents on File Type Date Recorded Patient Pipe Processor Expl anation POLST 01/26/2021 [place] [facility]-SUSTAINING TREATMENT * No [...] Power of Attor andrew? No Care Teams Neurology Technologist Relationship Specialty Start Date End Date Jocelyne Desai DO [address] [place] [address] [place] [address] PCP - General Internal Medicine 11/09/16 documented as of this encounter
--- OUTSIDE RECORDS SUMMARY | 2023-10-21 16:41 | External Medical Summary | Summary of Care ---
Author Name Unknown Organization [facility] Address [address] [facility] [place] [address] Phone [phone] Care Team Providers Care Keyboard Specialist Name Role Phone DesaiElissaJocelynejohn Cunninghame DO Primary Care Provider + [phone] Reason for Visit * Reason Comments Dosage Adjustment Via Phone (anticoag Cl inic) Encounter Details Date Type Department Care Team (Late st Contact Info) Description 08/15/2023 6:15 PM EDT Anticoagulation Centralized Clinical Pharmacy Services, Ilya Lafleur [address] [place] [address] [place] [address] [facility], [address] [place] [address] Chronic atrial fibrillation (HCC)* Allergies No known [...] [facility] for [facility] care [phone] Televideo if needed. 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 1 [...] ICD-10 update of inactive term PLATT RESEARCH OTHER*[id number] 02/20/2007 ADVANCE DIRECTIVE INFORMATION 01/19/2005 Overview: Yes, [...] [facility] office early next week will need [facility] provider recheck Multiple and open wound [...] 11/17/19 23 LUMBAGO 12/24/2002 05/09/2007 LOC PRIM [id number]-[id number]-[id number] 12/24/200208/13 DEGENERATIVE SKIN DISORD 12/24/2002 VERTEBRAL FX [...] as of this encounter Progress Notes * Alma Lim CPhT - 08/15/2023 2:01 PM EDT Contacts Type Contact Phone/Fax 08/15/2023 07:01 AM EDT Fax (Incoming) [facility] 08/15/2023 01:52 PM EDT Phone (Outgoing) Lg Cooley" (Self) [phone] (H) Subjective Patient Findings Negatives: Signs/symptoms of bleeding, Change in health, Change in activity, Upcoming invasive procedure, Missed doses, Extra doses, Change in medications, Change in diet/appetite, Bruising Advised patient to contact Anticoagulation Clinic if any unusual bruising or bleeding, recent illness, changes in medication, or questions/concerns. PT/INR results, Coumadin dose instructions, and next PT/INR date communicated as noted by Pharmacist: Yes Alma Lim CPhT 08/15/2023, 2:01 PM * Estefania Palacios RPh - 08/15/2023 10:18 AM EDT Images from the original note were not included. Coumadin Clinic (region specific) Objective Current Warfarin Dose As of 08/15/2023 Warfarin maintenance plan: 3 mg (3 mg x 1) every Sun, Tue, Mariel; 1.5 mg (3 mg x 0.5) all other days INR Result As of 08/15/2023 INR goal: 2.0-3.0 INR used for dosin.33 (08/14/2023) Assessment & Plan Warfarin Plan As of 08/15/2023 Full warfarin instructions: 08/14: Hold; Otherwise 3 mg every Sun, Tue, Mariel; 1.5 mg all other days Next INR check: 08/21/2023 Repeat PT/INR in 1 week(s) Weekly dose: not changed Additional Dosing Information: Description [facility] Nurses -- Mondays and Fridays ; fax - [phone] ([facility]) Tech to contact patient with dose instructions as noted. Estefania Palacios RPh 08/15/2023, 10:18 AM * Libby Vo CPhT - 08/15/2023 7:02 AM EDT Patient Phone Numbers Received fax from [facility] for today's results of PT= 37.4 INR= 3.33 Thank you, Libby Vo CPhT [employer] Reading [employer] II [facility] ([facility]) 08/15/2023,7:02 AM documented in this encounter Plan of Treatment Upcoming Encounters Date Type Department Care Team (Late st Contact Info) Description 08/22/2023 6:30 AM EDT Anticoagulation Centralized Clinical Pharmacy Services, Ilya Lafleur [address] [place] [address] [place] [address] [facility], [address] [place] [address] 08/23/2023 11:50 AM EDT Office Visit Family Medicine [address] [place] [phone] Jocelyne Desai [address] [place] [address] 08/31/2023 1:00 PM EDT Office Visit Family Medicine [address] [place] [phone] Savanna Al PA-C [address] [place] [address] [place] [address] 11/20/2023 2:00 PM EDT Office Visit Nephrology [address] [place] [address] Marycarmen Kowalski PA-C [address] [facility] [place] [address] 02/20/2024 12:30 PM EST Nurse Only Ancillary [address] [place] [address] [place], Nurse [address] [place] [address] 03/08/2024 2:30 PM EST Office Visit Family Medicine [address] [place] [phone] Jocelyne Desai, [address] [place] [address] Scheduled Procedures Name Priority Associated Diagnoses Date/Ti [...] Additional history exists CKD PHOS USE SMARTSET 65352 07/17/2024 06/0 05/2023, 07/03/2023, 11/16/2022, Additional history exists CKD HGB USE SMARTSET 45529 07/30/202407/30, 07/26/2023, 07/18/2023, Additional history exists DTaP,Tdap,and [...] encounter Medical Devices Implanted Type Area Credit Advisor Device Identifier Shelf Expiration Date Model / Serial / Lot Shaft Fibula 6cm 196314 - [id number] Implanted:Qty: 1 on 09/05/2008 at [place] [facility] [place] Tissue - Human N/A: Spine Cervical MUSCULOSKELETAL TRANSPLANT FND 04/20/2010 [id number] / [id number] 0P / Stent Eso Gw 22x70 99455-277 - [id number] Implanted:Qty: 1 on 01/21/2008 at [place] [facility] [place] N/A: Esophagus [employer]US INC 04/12/2009 32025-192 / / [id number] Depuy Uniplate 32 Implanted:Qty: 1 on 09/05/2008 [...] Implanted:Qty: 1 on 05/07/2010 at [place] [facility] [place] N/A: Neck 1773-06-146 / 1773-06-146 / Plate Zach 3 Level Ti 54mm - [id number] Implanted:Qty: 1 on 05/07/2010 at [place] [facility] [place] N/A: Neck JNJ : DEPUY SPINE [id number] / / Screw Zach Const St Ti 14mm - [id number] Implanted:Qty: 4 on 05/07/2010 at [place] [facility] [place] N/A: Neck JNJ : DEPUY SPINE [id number] 14 / / Screw 3.5x14 Mntr Fa [id number] - [id number] Implanted:Qty: 8 on 05/07/2010 at [place] [facility] [place] N/A: Spine Cervical JNJ : ETHICON CARDIOVATIONS [id number] / / Jarrell [id number] - [id number] Implanted:Qty: 1 on 05/07/2010 at [place] [facility] [place] N/A: Spine Cervical JNJ : ETHICON CARDIOVATIONS [id number] / / Screw Inner Mntr [id number] - [id number] Implanted:Qty: 8 on 05/07/2010 at [place] [facility] [place] N/A: Spine Cervical JNJ : ETHICON CARDIOVATIONS [id number] / / Envista Intraocular Lens Implanted:Qty: 1 on 03/10/2022 by Liang Marshall MD at OR [facility] Right: Eye BAUSCH & LOMB 08/13/2023 [id number] / [id number] / [id number] Envista Intraocular Lens Implanted:Qty: 1 on 03/24/2022 by Liang Marshall MD at OR [facility] Left: Eye BAUSCH & LOMB 07/13/2024 [id number] / [id number] / [id number] documented as of this encounter Procedures Procedure Name Priority Date/Time Associated Diagnosis Comments OUTSIDE LAB-PT/INR Routine 08/14/2023 documented in this encounter Results * OUTSIDE LAB-PT/INR (08/14/2023) INR-OUTSIDE LAB 3.33 08/14/2023 History Per Patient LABORATORY documented in this encounter Visit Diagnoses Diagnosis Chronic atrial fibrillation (HCC)- Primary Atrial fibrillation documented in this encounter Advance Directives Documents on File Type Date Recorded 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 No Care Teams Keyboard Specialist Relationship Specialty Start Date End Date Jocelyne Desai DO [address] [place] [address] [place] [address] PCP - General Internal Medicine 11/09/16 documented as of this encounter
--- OUTSIDE RECORDS SUMMARY | 2023-10-21 16:41 | External Medical Summary | Summary of Care ---
Author Name Unknown Organization [facility] Address [address] [facility] [place] [address] Phone [phone] Care Team Providers Care Patrol Driver Name Role Phone DesaiElissaJocelynejohn Briggs DO Primary Care Provider + [phone] Reason for Visit * Reason Comments Dosage Adjustment Via Phone (anticoag Cl inic) Encounter Details Date Type Department Care Team (Latest Contact Info) Description 08/04/2023 6:45 AM EDT Anticoagulation Centralized Clinical Pharmacy Services, Ilya [address] [place] [address] [facility] 58 60 [facility] [place] [address] Chronic atrial fibrillation (HCC)* Allergies No known [...] original. Good connectivity [facility] for wound care [phone] Televideo if needed. Problem Noted Date Diagnosed [...] ICD-10 update of inactive term PLATT RESEARCH OTHER*[id number] 02/20/2007 ADVANCE DIRECTIVE INFORMATION 01/19/2005 Overview: Yes, [...] [place] office early next week will need [facility] provider recheck Multiple and open wound of [...] 11/17/19 23 LUMBAGO 12/24/2002 05/09/2007 LOC PRIM [id number] 12/24/200208/13 DEGENERATIVE SKIN DISORD 12/24/2002 VERTEBRAL FX [...] MCG/0.3 mL, 12 YRS AND ABOVE, IM ([facility] 11/16/2022 Covid-19, Mrna, Lnp-s, Pf, B ivalent, [...] Progress Notes * Estefania Palacios RPh - 08/04/2023 12:37 PM EDT Pt remains admitted to [facility]. ACC will follow up at discharge. Estefania Palacios Rph, Pharm.D. Clinical Pharmacist [facility] ([facility]) [phone] 08/04/2023,12:37 PM documented in this encounter Plan of Treatment Upcoming Encounters Date Type Department Care Team (Late st Contact Info) Description 08/09/2023 11:50 AM EDT [address] [phone] Jocelyne Desai DO [address] [place] [address] [place] [address] 08/31/2023 1:00 PM EDT Office Visit [address] [place] [phone] Savanna Al PA-C [address] [place] [address] [place] [address] 11/20/2023 2:00 PM EDT Office Visit Nephrology [address] [place] [address] Marycarmen Kowalski PA-C [address] [facility] [place] [address] 02/20/2024 12:30 PM EST Nurse Only Ancillary [address] [place] [address] [place], Nurse Annual [address] [place] [address] 03/08/2024 2:30 PM EST Office Visit Family Medicine [address] [place] [phone] [address] [place] [address] Scheduled Procedures Name Priority Associated Diagnoses Date/Ti [...] Additional history exists CKD PHOS USE SMARTSET 70079 07/17/2024 06/0 05/2023, 07/03/2023, 11/16/2022, Additional history exists CKD HGB USE SMARTSET 83722 07/30/202407/30, 07/26/2023, 07/18/2023, Additional history exists DTaP,Tdap,and [...] encounter Medical Devices Implanted Type Area Sheet Rock Nailer Device Identifier Shelf Expiration Date Model / Serial / Lot Shaft Fibula 6cm 093112 - [id number] Implanted:Qty: 1 on 09/05/2008 at OR [facility] Tissue - Human N/A: Spine Cervical MUSCULOSKELETAL TRANSPLANT FND 04/20/2010 [id number] / [id number] 0P / Stent Eso Gw 22x70 [id number] - [id number] Implanted:Qty: 1 on 01/21/2008 at OR [facility] N/A: Esophagus ALVEOLUS INC 04/12/2009 [id number] / / [id number] Depuy Uniplate 32 Implanted:Qty: 1 on 09/05/2008 [...] Plate Zach 3 Level Ti 54mm - [id number] Implanted:Qty: 1 on 05/07/2010 at OR [facility] N/A: Neck JNJ : DEPUY SPINE [id number] / / Screw Zach Const St Ti 14mm - [id number] Implanted:Qty: 4 on 05/07/2010 at OR [facility] N/A: Neck JNJ : DEPUY SPINE [id number] / / Screw 3.5x14 Mntr Fa [id number] - [id number] Implanted:Qty: 8 on 05/07/2010 at OR [facility] N/A: Spine Cervical JNJ : ETHICON CARDIOVATIONS [id number] / / Jarrell [id number] - [id number] Implanted:Qty: 1 on 05/07/2010 at OR [facility] N/A: Spine Cervical JNJ : ETHICON CARDIOVATIONS [id number] / / Screw Inner Mntr [id number] - [id number] Implanted:Qty: 8 on 05/07/2010 at OR [facility] N/A: Spine Cervical JNJ : ETHICON CARDIOVATIONS [id number] / / Envista Intraocular Lens Implanted:Qty: 1 on 03/10/2022 by Liang Marshall MD at OR [facility] Right: Eye BAUSCH & LOMB 08/13/2023 [id number] / [id number] / [id number] Envista Intraocular Lens Implanted:Qty: 1 on 03/24/2022 by Liang Marshall MD at OR [facility] Left: Eye BAUSCH & LOMB 07/13/2024 [id number] / [id number] / [id number] documented as of this encounter Visit Diagnoses Diagnosis Chronic atrial fibrillation (HCC)- Primary Atrial fibrillation documented in this encounter Advance Directives Documents on File Type Date Recorded Patient Requisition Approver Expl anatpari POL 01/26/2021 [place] [facility] FOR [...] Power of Attor andrew? No Care Teams Patrol Driver Relationship Specialty Start Date End Date Jocelyne Desai DO [address] [place] [address] [place] [address] PCP - General Internal Medicine 11/09/16 documented as of this encounter
--- OUTSIDE RECORDS SUMMARY | 2023-10-21 16:41 | External Medical Summary | Summary of Care ---
Author Name Unknown Organization [facility] Address [address] [facility] [place] [address] Phone [phone] Care Team Providers Care Primary Therapist Name Role Phone DesaiElissaJocelynejohn Briggs DO Primary Care Provider + [phone] Reason for Visit * Reason Comments Dosage Adjustment Via Phone (anticoag Cl inic) Encounter Details Date Type Department Care Team (Latest Contact Info) Description 08/08/2023 6:45 AM EDT Anticoagulation Centralized Clinical Pharmacy Services, Ilya [address] [place] [address] [facility] 58 60 [facility] [place] [address] Chronic atrial fibrillation (HCC)* Allergies No known [...] connectivity [facility] for wound care [phone] Televideo if needed. Problem Noted Date Diagnosed [...] with podiatry,. Letter in chart from [facility] podiatry they were unable to [...] ICD-10 update of inactive term PLATT RESEARCH OTHER*[id number] 02/20/2007 ADVANCE DIRECTIVE INFORMATION 01/19/2005 Overview: Yes, [...] 11/17/19 23 LUMBAGO 12/24/2002 05/09/2007 LOC PRIM [id number] 12/24/200208/13 DEGENERATIVE SKIN DISORD 12/24/2002 VERTEBRAL FX [...] MCG/0.3 mL, 12 YRS AND ABOVE, IM ([facility]) 11/16/2022 Covid-19, Mrna, Lnp-s, Pf, B ivalent, [...] of this encounter Progress Notes * Jocelyne Whitmore RPh - 08/08/2023 3:27 PM EDT Medication Therapy Disease Management - Anticoagulation Patient: Lg Cooley | : 1950 Subjective Contacts Type Contact Phone/Fax 08/08/2023 03:32 PM EDT Phone (Outgoing) Lg Cooley "Rich" (Self) [phone] (H) Left Message Patient-Reported Symptoms: Patient Findings Positives: Hospital admission (Admitted to [facility] 07/31-08/06 for right leg wound cellulitis. Discharged home on Cefepime 2g IV daily x 4 days) Objective Current Warfarin Dose As of 08/08/2023 Warfarin maintenance plan: 3 mg (3 mg x 1) every Sun, Tue, Mariel; 1.5 mg (3 mg x 0.5) all other days INR Result As of 08/08/2023 INR goal: 2.0-3.0 INR used for dosin.4 (08/07/2023) Assessment & Plan Warfarin Plan As of 08/08/2023 Full warfarin instructions: 3 mg every Sun, Tue, Mariel; 1.5 mg all other days No change documented: Jocelyne Whitmore RPh Next INR check: 08/14/2023 Repeat PT/INR in 1 week(s) Weekly dose: not changed Additional Dosing Information: Description [facility] Nurses -- Mondays and Fridays ; fax - [phone] ([facility]) Jocelyne Whitmore RPh Clinical Pharmacist 08/08/2023, 3:27 PM documented in this encounter Plan of Treatment Upcoming Encounters Date Type Department Care Team (Late st Contact Info) Description 08/14/2023 10:20 AM EDT Office Visit Family Medicine [address] [place] [phone] Savanna Al PA-C [address] [place] [address] [place] [address] 08/31/2023 1:00 PM EDT Office Visit Family Medicine [address] [place] [phone] Savanna Al PA-C [address] [place] [address] [place] [address] 11/20/2023 2:00 PM EDT Office Visit Nephrology [address] [place] [address] Marycarmen Kowalski PA-C [address] [place] [address] 02/20/2024 12:30 PM EST Nurse Only Ancillary [address] [place] [address] [place], Nurse Annual [address] [place] [address] 03/08/2024 2:30 PM EST Office Visit Family Medicine [address] [place] [phone] Jocelyne Desai, [address] [place] [address] Scheduled Procedures Name Priority Associated Diagnoses Date/Ti [...] Additional history exists CKD PHOS USE SMARTSET 93796 07/17/2024 06/0 05/2023, 07/03/2023, 11/16/2022, Additional history exists CKD HGB USE SMARTSET 60097 07/30/202407/30, 07/26/2023, 07/18/2023, Additional history exists DTaP,Tdap,and [...] encounter Medical Devices Implanted Type Area General Manager Farm Device Identifier Shelf Expiration Date Model / Serial / Lot Shaft Fibula 6cm [id number] - [id number] Implanted:Qty: 1 on 09/05/2008 at OR [facility] Tissue - Human N/A: Spine Cervical MUSCULOSKELETAL TRANSPLANT FND 04/20/2010 [id number] / [id number] 0P / Stent Eso Gw 22x70 07668-169 - [id number] Implanted:Qty: 1 on 01/21/2008 at OR [facility] N/A: Esophagus ALVEOLUS INC 04/12/2009 83481-595 / / [id number] Depuy Uniplate 32 Implanted:Qty: 1 on 09/05/2008 at OR [facility] N/A: Spine Cervical TAMMY & TAMMY DEPUY 1897-02-302 / / Depuy Uniplate Screw 14mm Implanted:Qty: 2 on 09/05/2008 at OR [facility] N/A: Spine Cervical TAMMY & TAMMY DEPUY 189--017 / / Depuy Lordotic Bengal Cage Implanted:Qty: 1 on 05/07/2010 at OR [facility] N/A: Neck 1773--146 / [id number] / Plate Zach 3 Level Ti 54mm - [id number] Implanted:Qty: 1 on 05/07/2010 at OR [facility] N/A: Neck JNJ : DEPUY SPINE [id number] / / Screw Zach Const St Ti 14mm - [id number] Implanted:Qty: 4 on 05/07/2010 at OR [facility] N/A: Neck JNJ : DEPUY SPINE [id number] 14 / / Screw 3.5x14 Mntr Fa [id number] - [id number] Implanted:Qty: 8 on 05/07/2010 at OR [facility] N/A: Spine Cervical JNJ : ETHICON CARDIOVATIONS [id number] / / Jarrell [id number] - [id number] Implanted:Qty: 1 on 05/07/2010 at OR [facility] N/A: Spine Cervical JNJ : ETHICON CARDIOVATIONS [id number] / / Screw Inner Mntr [id number] - [id number] Implanted:Qty: 8 on 05/07/2010 at OR [facility] N/A: Spine Cervical JNJ : ETHICON CARDIOVATIONS [id number] / / Envista Intraocular Lens Implanted:Qty: 1 on 03/10/2022 by Liang Marshall MD at OR [facility] Right: Eye BAUSCH & LOMB 08/13/2023 [id number] / [id number] / [id number] Envista Intraocular Lens Implanted:Qty: 1 on 03/24/2022 by Liang Marshall MD at OR [facility] Left: Eye BAUSCH & LOMB 07/13/2024 [id number] / [id number] / [id number] documented as of this encounter Procedures Procedure Name Priority Date/Time Associated Diagnosis Comments OUTSIDE LAB-PT/INR Routine 08/07/2023 documented in this encounter Results * OUTSIDE LAB-PT/INR (08/07/2023) INR-OUTSIDE LAB 2.4 History Per Patient LABORATORY documented in this encounter Visit Diagnoses Diagnosis Chronic atrial fibrillation (HCC)- Primary Atrial fibrillation documented in this encounter Advance Directives Documents on File Type Date Recorded Patient Manager Of Disaster Recovery Expl anation POLST 01/26/2021 [facility] * No Code [...] Power of Attor andrew? No Care Teams Primary Therapist Relationship Specialty Start Date End Date Jocelyne Desai DO [address] [place] [address] [place] [phone] PCP - General Internal Medicine 11/09/16 documented as of this encounter
--- OUTSIDE RECORDS SUMMARY | 2023-10-21 16:42 | External Medical Summary | Summary of Care ---
Author Name Unknown Organization [facility] Address [address] [facility] [place] [address] Phone [phone] Care Team Providers Care Blue Line Trimmer Name Role Phone Desai Jocelyne Briggs DO Primary Care Provider + [phone] Reason for Visit * Reason Comments Dosage Adjustment Via Phone (anticoag Cl inic) Encounter Details Date Type Department Care Team (Late st Contact Info) Description 08/01/2023 6:15 PM EDT Anticoagulation Centralized Clinical Pharmacy Services, Ilya Lafleur [address] [place] [address] [place] [address] [facility], [address] [place] [address] Chronic atrial fibrillation (HCC)* Allergies No known [...] the original. Good connectivity [facility] for wound care [phone] Televideo if needed. Problem Noted Date Diagnosed [...] up with podiatry,. Letter in chart from [facility] podiatry they were unable to get in [...] ICD-10 update of inactive term PLATT RESEARCH OTHER*[id number] 02/20/2007 ADVANCE DIRECTIVE INFORMATION 01/19/2005 Overview: Yes, [...] 11/17/19 23 LUMBAGO 12/24/2002 05/09/2007 LOC PRIM [id number] 12/24/200208/13 DEGENERATIVE SKIN DISORD 12/24/2002 VERTEBRAL FX [...] MCG/0.3 mL, 12 YRS AND ABOVE, IM ([facility] 11/16/2022 Covid-19, Mrna, Lnp-s, Pf, B ivalent, [...] Progress Notes * Jocelyne Whitmore RPh - 08/01/2023 3:21 PM EDT Noted. Patient currently in ER. INR 3.6 today- ER notes state Coumadin will be held today. ACC willfollow up to check for admission/vs discharge. Thank You Jocelyne Whitmore PharmD Clinical Pharmacist Centralized Clinical Pharmacy Services ([facility]) [phone] / [phone] 08/01/2023, 3:24 PM * Amy Tracy sales representative marine supplies - 08/01/2023 3:07 PM EDT Called [facility] SANTI[facility] and spoke to Madai, patient was admitted to [facility]. Thank you, Gaurav Tracy Senior Data Warehouse Architect Centralized Clinical Pharmacy Services ([facility]) 08/01/2023, 3:07 PM * Amy Tracy sales representative marine supplies - 08/01/2023 1:07 PM EDT Called [facility] SANTI[facility] and left voicemail for a call back if patient had his INR drawn yesterday. Thank you, Gaurav Tracy Senior Data Warehouse Architect [facility] Pharm[facility] Services ([facility]) 08/01/2023, 1:07 PM documented in this encounter Plan of Treatment Upcoming Encounters Date Type Department Care Team (Late st Contact Info) Description 08/02/2023 6:45 AM EDT Anticoagulation Centralized Clinical Pharmacy Services, Ilya Lafleur [address] [place] [address] [place] [address] [facility], [facility] 58 60 [facility] [place] [address] 08/31/2023 1:00 PM EDT Office Visit Family Medicine [address] [place] [phone] Savanna Al PA-C [address] [place] [address] [place] [address] 11/20/2023 2:00 PM EDT Office Visit Nephrology [address] [place] [address] Marycarmen Kowalski PA-C [address] [place] [address] 02/20/2024 12:30 PM EST Nurse Only Ancillary [address] [place] [address] [place], Nurse Annual [address] [place] [address] 03/08/2024 2:30 PM EST Office Visit Family Medicine [address] [place] [phone] oJcelyne Desai, [address] [place] [address] Scheduled Procedures Name Priority Associated Diagnoses Date/Ti [...] Additional history exists CKD PHOS USE SMARTSET 90195 07/17/2024 06/0 05/2023, 07/03/2023, 11/16/2022, Additional history exists CKD HGB USE SMARTSET 36272 07/30/202407/30, 07/26/2023, 07/18/2023, Additional history exists DTaP,Tdap,and [...] this encounter Medical Devices Implanted Type Area Collection Advisor Device Identifier Shelf Expiration Date Model / Serial / Lot Shaft Fibula 6cm [id number] - [id number] Implanted:Qty: 1 on 09/05/2008 at OR [facility] Tissue - Human N/A: Spine Cervical MUSCULOSKELETAL TRANSPLANT FND 04/20/2010 [id number] / [id number] 0P / Stent Eso Gw 22x70 21210-589 - [id number] Implanted:Qty: 1 on 01/21/2008 at OR [facility] N/A: Esophagus ALVEOLUS INC 04/12/2009 33964-314 / / [id number] Depuy Uniplate 32 Implanted:Qty: 1 on 09/05/2008 [...] Plate Zach 3 Level Ti 54mm - [id number] Implanted:Qty: 1 on 05/07/2010 at OR [facility] N/A: Neck JNJ : DEPUY SPINE [id number] / / Screw Zach Const St Ti 14mm - [id number] Implanted:Qty: 4 on 05/07/2010 at OR [facility] N/A: Neck JNJ : DEPUY SPINE [id number] 14 / / Screw 3.5x14 Mntr Fa [id number] - [id number] Implanted:Qty: 8 on 05/07/2010 at OR [facility] N/A: Spine Cervical JNJ : ETHICON CARDIOVATIONS [id number] / / Jarrell 3.5x549zc [id number] - [id number] Implanted:Qty: 1 on 05/07/2010 at OR [facility] N/A: Spine Cervical JNJ : ETHICON CARDIOVATIONS [id number] / / Screw Inner Mn [id number] - [id number] Implanted:Qty: 8 on 05/07/2010 at OR [facility] N/A: Spine Cervical JNJ : ETHICON CARDIOVATIONS [id number] / / Envista Intraocular Lens Implanted:Qty: 1 on 03/10/2022 by Liang Marshall MD at OR [facility] Right: Eye BAUSCH & LOMB 08/13/2023 [id number] / [id number] / [id number] Envista Intraocular Lens Implanted:Qty: 1 on 03/24/2022 by Liang Marshall MD at OR [facility] Left: Eye BAUSCH & LOMB 07/13/2024 [id number] / [id number] / [id number] documented as of this encounter Procedures Procedure Name Priority Date/Time Associated Diagnosis Comments OUTSIDE LAB-PT/INR Routine 08/01/2023 documented in this encounter Results * OUTSIDE LAB-PT/INR (08/01/2023) INR-OUTSIDE LAB 3.6 History Per Patient LABORATORY documented in this encounter Visit Diagnoses Diagnosis Chronic atrial fibrillation (HCC)- Primary Atrial fibrillation documented in this encounter Advance Directives Documents on File Type Date Recorded Patient Respooler Expl eyalpari POL 01/26/2021 [place] [facility]SU[facility]AIN[facility] TREATMENT * No Code [...] Power of Attor andrew? No Care Teams Blue Line Trimmer Relationship Specialty Start Date End Date Jocelyne Desai DO [address] [place] [address] [place] [address] PCP - General Internal Medicine 11/09/16 documented as of this encounter
--- OUTSIDE RECORDS SUMMARY | 2023-10-21 16:42 | External Medical Summary | Summary of Care ---
Author Name Unknown Organization [facility] Address [address] [place] [address] Phone [phone] Care Team Providers Care Thread Laster Name Role Phone DesaiElissaJocelynejohn Briggs DO Primary Care Provider + [phone] Reason for Visit * Reason Comments Dosage Adjustment Via Phone (anticoag Cl inic) Encounter Details Date Type Department Care Team (Latest Contact Info) Description 08/02/2023 6:45 AM EDT Anticoagulation [facility], [place]a [address] [place] [address] [facility] 58 [address] [facility] [place] [address] Chronic atrial fibrillation (HCC)* Allergies No known active allergiesdocumented as of this encounter (statuses as of 08/02/2023) Medications Medication Sig Dispensed Refills Start Date [...] as of this encounter (statuses as of 08/02/2023) Active Problems Patient Care Coordination No te Formatting of this note migh t be different from the original. Good connectivity [facility] for wound care [phone] Televideo if needed. Problem Noted Date Diagnosed [...] ICD-10 update of inactive term PLATT RESEARCH OTHER*[id number] 02/20/2007 ADVANCE DIRECTIVE INFORMATION 01/19/2005 Overview: Yes, Patient instructed to provide copy of advance directive for provider to review and to be scanned into Electronic Medical Record No, Advance Directive brochure given to patient at prior appointment. SPINAL STENOSIS-LUMBAR 09/23/2002 Vitamin D deficiency Cervical spinal stenosis documented as of this encounter (statuses as of 08/02/2023) Resolved Problems Problem Noted Date Diagnosed Date [...] 11/17/19 23 LUMBAGO 12/24/2002 05/09/2007 LOC PRIM [id number] 12/24/200208/13 DEGENERATIVE SKIN DISORD 12/24/2002 VERTEBRAL FX [...] as of this encounter (statuses as of 08/02/2023) Immunizations Name Administration Dates Next Due COVID-19 mRNA, LNP-s, No Pre serve, 2-Dose Series (Moderna) 03/19/2020 COVID-19 mRNA, LNP-s, No Pre serve, 2-Dose Series (Pfizer) 02/16/2021,04/09/2020,03/19/2020 COVID-19, MRNA-LNP, 23-24, P F, 30 MCG/0.3 mL, 12 YRS AND ABOVE, IM ([facility] 11/16/2022 Covid-19, Mrna, Lnp-s, Pf, B ivalent, [...] Progress Notes * Estefania Palacios RPh - 08/02/2023 1:13 PM EDT PT now in admitted status at [facility]. [facility] will follow up at discharge. Estefania Palacios Rp, Pharm.D. Clinical Pharmacist [facility] ([facility]) [phone] 08/02/2023,1:16 PM documented in this encounter Plan of Treatment Upcoming Encounters Date Type Department Care Team (Late st Contact Info) Description 08/31/2023 1:00 PM EDT Office Visit Family Medicine [address] [place] [phone] Savanna Al PA-C [address] [place] [address] [place] [phone] 11/20/2023 2:00 PM EDT Office Visit Nephrology [address] [place] [address] ZemaMarycarmen lindsey PA-C [address] [facility] [place] [address] 02/20/2024 12:30 PM EST Nurse Only Ancillary [address] [place] [address] [place], Nurse Annual Wellness [address] [place] [address] [place] [address] 03/08/2024 2:30 PM EST Office Visit Family Medicine [address] [place] [phone] Jocelyne Desai, [address] [place] [address] Scheduled Procedures Name Priority Associated Diagnoses Date/Ti [...] Additional history exists CKD PHOS USE SMARTSET 51063 07/17/2024 06/0 05/2023, 07/03/2023, 11/16/2022, Additional history exists CKD HGB USE SMARTSET 17573 07/30/202407/30, 07/26/2023, 07/18/2023, Additional history exists DTaP,Tdap,and [...] encounter Medical Devices Implanted Type Area Air Carrier Operations Inspector Device Identifier Shelf Expiration Date Model / Serial / Lot Shaft Fibula 6cm [id number] - [id number] Implanted:Qty: 1 on 09/05/2008 at [place] [facility] Tissue - Human N/A: Spine Cervical MUSCULOSKELETAL TRANSPLANT FND 04/20/2010 [id number] / [id number] / Stent Eso Gw 22x70 [id number] - [id number] Implanted:Qty: 1 on 01/21/2008 at [place] [facility] N/A: Esophagus [employer] 04/12/2009 [id number] / / [id number] Depuy Uniplate 32 Implanted:Qty: 1 on 09/05/2008 at [place] [facility] N/A: Spine Cervical TAMMY & TAMMY DEPUY [id number] / / Depuy Uniplate Screw 14mm Implanted:Qty: 2 on 09/05/2008 at OR [facility] N/A: Spine Cervical TAMMY & TAMMY DEPUY [id number] / / Depuy Lordotic Bengal Cage Implanted:Qty: 1 on 05/07/2010 at OR [facility] N/A: Neck [id number] / [id number] / Plate Zach 3 Level Ti 54mm - [id number] Implanted:Qty: 1 on 05/07/2010 at OR [facility] N/A: Neck JNJ : DEPUY SPINE [id number] / / Screw Zach Const St Ti 14mm - [id number] Implanted:Qty: 4 on 05/07/2010 at OR [facility] N/A: Neck JNJ : DEPUY SPINE [id number] / / Screw 3.5x14 Mntr Fa [id number] - [id number] Implanted:Qty: 8 on 05/07/2010 at [place] [facility] N/A: Spine Cervical JNJ : ETHICON [employer] [id number] / / Jarrell 3.1l731ze [id number] - [id number] Implanted:Qty: 1 on 05/07/2010 at [place] [facility] N/A: Spine Cervical JNJ : ETHICON CARDIOVATIONS [id number] / / Screw Inner Mn [id number] - [id number] Implanted:Qty: 8 on 05/07/2010 at [place] [facility] N/A: Spine Cervical JNJ : ETHICON CARDIOVATIONS [id number] / / Envista Intraocular Lens Implanted:Qty: 1 on 03/10/2022 by Liang Marshall MD at OR [facility] Right: Eye BAUSCH & LOMB 08/13/2023 [id number] / [id number] / [id number] Intraocular Lens Implanted:Qty: 1 on 03/24/2022 by Liang Marshall MD at OR [facility] Left: Eye BAUSCH & LOMB 07/13/2024 [id number] / [id number] / [id number] documented as of this encounter Visit Diagnoses Diagnosis Chronic atrial fibrillation (HCC)- Primary Atrial fibrillation documented in this encounter Advance Directives Documents on File Type Date Recorded Patient Vp Corporate Partnerships Expl anation POLST 01/26/2021 [place] [facility]-SU[facility]AINING [...] Power of Attor andrew? No Care Teams Thread Laster Relationship Specialty Start Date End Date Jocelyne Desai DO [address] [place] [address] [place] [phone] PCP - General Internal Medicine 11/09/16 documented as of this encounter
[2023-10-21 17:15] LABS: Albumin Globulin Ratio 1.1 (0.9-2); Albumin Level 3.7 gm/dl (3.4-5.0); Bilirubin,Total 0.3 mg/dl (0.2-1.0); Calcium 7.9 mg/dl (8.6-10.3); Creatinine Clr Calc Pharmacy 16.6 ml/min; Est GFR (African American) 15.2 ml/min; Est GFR (Non-African American) 13.1 ml/min; Globulin 3.5 gm/dl (2.5-4.0); Potassium 4.7 mmol/L (3.5-5.1); Total Protein 7.2 gm/dl (6.0-8.3)
[2023-10-21 17:16] LABS: Hematocrit (blood only) 22.7 % (42.0-52.0); Hemoglobin 6.8 g/dl (14.0-18.0); Mean Corpuscular Hemoglobin 26.6 pg (25.0-34.0); Mean Corpuscular Volume 88.7 fL (80.0-100.0); Mean Platelet Volume 10.3 fL (9.4-12.4); Platelet Count 225 K/uL (130-400); RDW Coefficient of Variation 19.3 % (11.5-14.5); RDW Standard Deviation 62.4 fL (36.4-46.3); Red Blood Count 2.56 M/uL (4.70-6.10); White Blood Count 5.33 K/ul (4.8-10.8)
--- NOTE | 2023-10-21 17:23 | History & Physical Report ---
Date of Service October 21, 2023 Assessment & Plan (1) Acute on chronic anemia: (2) GIB (gastrointestinal bleeding): Plan Lg Cooley is a 73y/o M with significant PMHx of DM type II, diabetic neuropathy, PAD, CKD stage IV [baseline Cr ~ 3], dyslipidemia, secondary hyperparathyroidism, diabetic retinopathy with macular edema, sleep apnea [on BiPAP], nocturnal hypoxemia, history of cardiac pacemaker placement, chronic A- fib [on warfarin], chronic diabetic ulcer of R foot, HTN, venous insufficiency of both lower extremities, cerebrovascular disease, history of MRSA infection, history of right great toe amputation, orthostatic hypotension, history of paroxysmal SVT, atrophic pancreas, chronic anemia [baseline Hgb ~8] and other problems listed below who presented to the ED today for evaluation via referral from his PCP secondary to a low Hgb level on 6.8 discovered on recent outpatient labs. Acute GI Bleeding Symptomatic Acute on Chronic Anemia: History as per HPI and above. Hemoccult positive in ED. Hgb 6.8 on presentation. H/H Q6H, transfuse PRN. IV Protonix bolus/drip started in ED - continue. 2 units PRBCs ordered to be administered. Routine GI consult. Gentle IVF. 10mg Lasix x 1 following 1st unit of PRBCs. Clear liquid diet. NPO at midnight pending potential scope by GI tomorrow. Hold warfarin and ASA. Chronic Afib: Continue metoprolol succinate. INR 2.1 today, IV vitamin K ordered. 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 Repeat PT/INR in AM. CKD Stage IV Acute Kidney Injury: Cr 4.26 on admission, appears baseline Cr ~3 per chart review. Patient follows w/ [facility]. Routine nephrology consult. Renal/bladder US pending. UA pending. DM Type II: Hold home agents, SSI regimen while inpatient. BSG checks ACHS. Hgb A1c was 6.3% on 08/23/23. Sleep Apnea: Continue BiPAP HS. Orthostatic Hypotension: Continue midodrine. Close BP monitoring on telemetry. Chronic Diabetic Ulcer of Both Feet: Follows / [facility] [Jhony Aquino DPM]. Has wound vac in place on LLE. No leukocytosis noted. Inpatient relief charge nurse consulted. Other Chronic Medical Conditions: Dyslipidemia, BPH --> Continue home meds for these specific conditions. 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 Code Status: FULL CODE PCP: Jocelyne Desai DO Disposition: Admit to PCU/Telemetry Patient seen in collaboration with Dr. Chow. Please see addendum. I spent a total of 65 minutes coordinating, documenting, and providing care for this patient excluding time spent in the performance of separately billed services. This included personally reviewing all current laboratories and imaging studies, medical reconciliation, outpatient chart review and discussion with specialists. This chart was completed in part utilizing Speech Voice Recognition Software. Grammatical errors, random word insertions, pronoun errors, and incomplete sentences are an occasional consequence of this system due to software limitations, ambient noise, and hardware issues. Any formal questions or concerns about the content, text, or information contained within the body of this dictation should be directly addressed to the provider for clarification. History of Present Illness Chief Complaint: Referred by Doctor - Low Hgb Level Primary Care Provider: Jocelyne Desai DO Lg Cooley is a 73y/o M with significant PMHx of DM type II, diabetic neuropathy, PAD, CKD stage IV [baseline Cr ~ 3], dyslipidemia, secondary hyperparathyroidism, diabetic retinopathy with macular edema, sleep apnea [on BiPAP], nocturnal hypoxemia, history of cardiac pacemaker placement, chronic A- fib [on warfarin], chronic diabetic ulcer of R foot, HTN, venous insufficiency of both lower extremities, cerebrovascular disease, history of MRSA infection, history of right great toe amputation, orthostatic hypotension, history of paroxysmal SVT, atrophic pancreas, chronic anemia [baseline Hgb ~8] and other problems listed below who presented to the ED today for evaluation via referral from his PCP secondary to a low Hgb level on 6.8 discovered on recent outpatient labs. History obtained from patient and associated chart review. Patient reports he has been experiencing SOB "for a while," but has gotten significantly worse over the past few days. Has not noticed any black stools or BRBPR. No fever, chills or body aches. Denies any lightheadedness or dizziness. He does not wear supplemental O2 at baseline. Had an EGD done on 09/14/23 that was normal. Last colonoscopy was done 09/08/21 that was normal as well. No known history of GI bleeding per patient. IV Protonix bolus/drip started in ED. 2 units PRBCs ordered to be administered. Allergies Allergy/AdvReac Type Severity Reaction Status Date / Time No Known Allergies Allergy Verified 10/21/23 17:49 Home Medications Medication Instructions Recorded Confirmed Type pediatric dselucxi-wzei-aaw 1 tab PO PM ##0 04/11/13 10/21/23 History (Flintstones Complete (iron) chewable tablet) atorvastatin 40 mg tablet 40 mg PO PM #0 tabs 01/08/17 10/21/23 History cholecalciferol (vitamin D3) 25 2,000 unit PO PM 10/18/17 10/21/23 History mcg (1,000 unit) capsule (Vitamin D3) cyanocobalamin (vitamin B-12) 1,000 mcg PO PM 05/06/19 10/21/23 History 1,000 mcg tablet tamsulosin 0.4 mg capsule 0.4 mg PO PM 05/06/19 10/21/23 History magnesium oxide 400 mg PO QAM 09/26/19 10/21/23 History acetaminophen 500 mg tablet 1,000 mg PO Q6H PRN Pain 12/17/20 10/21/23 History aspirin 81 mg tablet 81 mg PO DAILY 12/21/20 10/21/23 History warfarin 3 mg tablet See Rx Instructions .Route .COMPLEX 10/07/22 10/21/23 History metoprolol succinate 25 mg 25 mg PO QAM #30 tabs 10/16/22 10/21/23 Rx tablet,extended release 24 hr midodrine 2.5 mg tablet 2.5 mg PO TID@0800,1200,1700 #90 06/27/23 10/21/23 Rx tabs potassium chloride 20 mEq 0 meq PO QAM 08/01/23 10/21/23 History tablet,extended release(part/cryst) L.acidop,casei,lactis,rham-B.lact,scot 1 cap PO DAILY #30 caps 08/07/23 10/21/23 Rx 625 mg (10 billion cell) capsule (Advanced Probiotic) cyclobenzaprine 10 mg tablet 10 mg PO Q8H PRN Muscle Spasms 10/21/23 10/21/23 History oxycodone 5 mg tablet 5 mg PO Q6H PRN Pain 10/21/23 10/21/23 History torsemide 20 mg tablet 20 mg PO BID 10/21/23 10/21/23 History Past Med/Surg History Problem List (Updated 10/21/23 @ 18:53 by Jin Reza MD) Symptomatic anemia (Acute) Dyspnea (Acute) Chronic anticoagulation (Acute) Acute GI bleeding (Acute) GIB (gastrointestinal bleeding) Acute on chronic anemia Bacterial infection due to Pseudomonas Acute UTI (Acute) Leg pain, right Morbid obesity Cellulitis of leg, right (Acute) Pacemaker battery depletion Hx MRSA infection Cellulitis of right lower extremity Acute dyspnea (Acute) Acute exacerbation of CHF (congestive heart failure) (Acute) Non-ST elevation ID (NSTEMI) (Acute) Acute kidney injury superimposed on chronic kidney disease (Acute) Chronic osteomyelitis Traumatic open wound of lower leg Infected wound Status post partial amputation of foot Abdominal pannus Venous stasis ulcer of right lower leg with edema of right lower leg Chronic venous insufficiency of lower extremity (Chronic) Diabetic ulcer of toe (Acute) Diabetic ulcer of right foot (Acute) Spinal stenosis (Chronic) CHF (congestive heart failure) (Chronic) Diabetes type 2 with atherosclerosis of arteries of extremities Right hip pain Unsteady gait Personal history of diabetic foot ulcer Diabetic peripheral neuropathy associated with type 2 diabetes mellitus Diabetes type 2, controlled NIDDM Atrial fibrillation (Chronic) Peripheral arterial disease (Chronic) 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, EVELINE TPT/proximal 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, Right great toe amputation 07/2020 with revision 08/2020 Hypertension (Chronic) Chronic anemia CVA (cerebral vascular accident) 01/2018; residual right sided weakness Mixed sleep apnea No device (previous BIPAP) CKD (chronic kidney disease), stage III Dyslipidemia Pacemaker (Chronic) Left, normal single chamber pacemaker function with stable pacing and sensing thresholds per pacer check 12/08/20 [facility] Tachy-geronimo syndrome Medical History MRSA infection Hyperlipemia Essential hypertension 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 kidney disease Degenerative cervical spinal stenosis Degenerative lumbar spinal stenosis Proliferative diabetic retinopathy Venous insufficiency of both lower extremities Erectile dysfunction Nonalcoholic 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 (PLTAT) skilled nursing current use of 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 Hyperparathyroidism, secondary renal Esophageal obstruction Complex sleep apnea syndrome Vitamin B12 deficiency Persistent proteinuria Paroxysmal SVT (supraventricular tachycardia) Myocardial Infarction 2018 > medically managed CHF (congestive heart failure) Acute renal failure superimposed on stage 3 chronic kidney disease 08/2020 hospitalization, UTI and osteomyelitis, necrotizing fasciitis Depression Sepsis 2013 Surgical History History of amputation of lesser toe of right foot Hx of angioplasty Amputation toe Right great toe amputation (08/12/20): MAC at [facility] History of esophagogastroduodenoscopy (EGD) History of vascular surgery Left popliteal, EVELINE TPT/proximal 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 (10/2019) Right great toe I&D, revision amputation (08/21/20): MAC at [facility] History of hand surgery Tendon transfer Gastric bypass status for obesity Family History Brother Diabetes Mother Diabetes Father Diabetes Other Cancer Hypertension Social History Smoking Status: Former smoker Tobacco Type: Cigarettes Cigarettes Per Day: quit a long time ago; Smoking End Date: 1979; Second Hand Exposure: No; Do You Dip or Chew Tobacco: No; Hx Alcohol Use: Yes Alcohol type: beer and wine Alcohol Intake Frequency: Monthly or Less Hx Substance Use: No Preferred Language: Malagasy 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 Ability: Effective Visual Impairment: No Limitations Hearing Ability: Normal 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 current occupational status: retired How many Children do You have: 2 Feels Safe at Home: Yes Safety Concerns: Feels Safe At This Time Diet Comment: Educated to increase protein, vitamin c, d and zinc Assistive Devices: Cane and Walker Review of Systems Review of Systems: At least ten systems reviewed and negative, except as noted in the HPI. Physical Exam Physical Exam: Please refer to Dr. Chow's addendum for physical examination findings. Results & Data Results & Data Vital Signs (Past 12 Hours) Vital Signs Temp Pulse Resp BP Pulse Ox O2 Del Method 10/21/23 16:56 67 100 Room Air 10/21/23 16:49 69 10/21/23 16:30 36.2 C L 75 20 125/68 100 Room Air Laboratory Results Short CBC 10/21/23 Range/Units 16:43 WBC 5.33 (4.8-10.8) K/ul Hgb 6.8 L* (14.0-18.0) g/dl Hct 22.7 L (42.0-52.0) % Plt Count 225 (130-400) K/uL BMP 10/21/23 16:43 Sodium 136 Potassium 4.7 Chloride 108 H Carbon Dioxide 18 L BUN 85 H Creatinine 4.26 H Glucose 99 Calcium 7.9 L Liver Function 10/21/23 Range/Units 16:43 Total Bilirubin 0.3 (0.2-1.0) mg/dl AST 20 (13-39) U/L ALT 20 (7-52) U/L Alkaline Phosphatase 60 (34-104) U/L Albumin 3.7 (3.4-5.0) gm/dl Code Status & VTE Plan Code Status FULL CODE Supervising Physician Co-Signing Physician Notes Patient is a 73-year-old male with history of A-fib on chronic anticoagulation with Coumadin, diabetes mellitus currently not on any medications, CHF, hypertension, PAD, CVA, tachybradycardia syndrome s/p pacemaker, CKD stage III- IV and other medical problems presents for evaluation of abnormal blood work and worsening dyspnea on exertion. He was advised by his PCP to be evaluated for low hemoglobin noted on outpatient blood work. He admits to have some dyspnea on exertion but otherwise denies any bleeding issues currently. He also denies any chest pain, nausea, vomiting, abdominal pain, diarrhea, melena, hematuria, dizziness. Fecal occult is positive while in ED. Please review HPI for complete details of presentation. I personally reviewed blood work. Hemoglobin 6.8, hematocrit 22.7, INR 2.1, creatinine 4.26. He follows with wound clinic for his chronic leg wound and currently has wound VAC. Physical Exam: Vitals signs as noted above General Appearance: Thin, frail, elderly, no apparent distress Head: normocephalic, Atraumatic Eyes: normal inspection, EOMI Neck: supple, Trachea midline Respiratory/Chest: Normal breath sounds, CTA, No accessory muscle use Cardiovascular: S1, S2, +murmur Abdomen/GI:Soft, Non tender, Bowel sounds present Extremities/Musculoskeletal:normal inspection, 2+ LE edema, + left lower extremity wound VAC Neurologic/Psych:AAOX3, grossly no focal neurological deficits Skin: normal color, warm Symptomatic anemia Acute GI bleed in setting of Coumadin, aspirin use INR 2.1, hemoglobin 6.8 S/P 2 units PRBCs Monitor H&H and transfuse as needed Hold Coumadin, aspirin Clear liquid diet N.p.o. after midnight GI consulted Given vitamin K Monitor INR JORGE on CKD stage III Creatinine 4.26 Likely gradual progression of kidney disease Check renal ultrasound Nephrology consulted Avoid nephrotoxic agents as able Hold home diuretics Monitor volume status, urine output Check urine analysis Gentle IV fluids Chronic leg wounds Continue wound VAC strap setter consulted I personally interviewed and examined at bedside. Patient's care is coordinated with Hilda Child PA-C. I have reviewed the advanced practitioner's documentation, and I agree with plan of care. Please refer to the documentation above for details of patient's presentation and for discussion of other issues. I spent a total [id number] coordinating, documenting, and providing care for this patient excluding time spent in the performance of separately billed services. (2) GIB (gastrointestinal bleeding) GI bleed type/associated pathology: unspecified gastrointestinal hemorrhage type Qualified Code(s): K92.2 - Gastrointestinal hemorrhage, unspecified
[2023-10-21 17:25] LABS: Basophils # (auto) 0.01 K/uL (0.00-0.20); Basophils % (auto) 0.2 %; Eosinophils # (auto) 0.03 K/uL (0.00-0.50); Eosinophils % (auto) 0.6 %; Immature Granulocytes # (auto) 0.02 K/uL (0.01-0.20); Immature Granulocytes % (auto) 0.4 %; Lymphocytes # (auto) 0.64 K/uL (1.20-3.40); Monocytes # (auto) 0.42 K/uL (0.11-0.59); Monocytes % (auto) 7.9 %; Neutrophils # (auto) 4.21 K/uL (1.40-6.50); Neutrophils % (auto) 78.9 %; Polychromasia 1+
[2023-10-21 17:35] LABS: INR 2.1 (0.9-1.1); Partial Thromboplastin Ratio 1.2; Partial Thromboplastin Time 33 Seconds (21-31); Prothrombin Time 21.2 Seconds (9.0-12.0)
[2023-10-21] MEDS: PANTOprazole 80 MG in DEXTROSE 5% 100 ML IV ONE (17:50)
[2023-10-21] MEDS: PANTOprazole 40 MG in DEXTROSE 5% MINI-B 100 ML IV SCH (18:12)
[2023-10-21] MEDS: PANTOPRAZOLE BOLUS/DRIP IV STA (18:13)
[2023-10-21] MEDS ORDERED: ONDANSETRON INJ 2 MG/ML 2 ML VIAL IV PRN (19:09)
[2023-10-21] MEDS ORDERED: CARBOHYDRATES FOR HYPOGLYCEMIA PO PRN (19:09)
[2023-10-21] MEDS ORDERED: GLUCOSE 40% GEL 15 GM TUBE PO PRN (19:09)
[2023-10-21] MEDS ORDERED: POLYETHYLENE (MIRALAX) 17 GM PACK PO PRN (19:09)
[2023-10-21] MEDS ORDERED: GLUCAGON FOR INJ 1 MG VIAL SQ PRN (19:09)
[2023-10-21] MEDS ORDERED: GLUCOSE 10 TAB/TUBE PO PRN (19:09)
[2023-10-21] MEDS ORDERED: DEXTROSE 50% 50 ML SYRINGE IV PRN (19:09)
[2023-10-21] MEDS: PHYTONADIONE 5 MG in DEXTROSE 5% 50 ML IV ONE (20:20)
[2023-10-21 20:26] LABS: Appearance Urine Clear (Clear); Bacteria Urine Automated None Seen (None Seen); Bilirubin Urine Negative (Negative); Blood Urine Negative (Negative); Cast Urine Automated 0-2 /lpf (0-2); Color Urine Yellow; Epithelial Cell Urine Auto 0-2 /hpf (0-2); Glucose Urine UA Negative (Negative); Ketones Urine Negative (Negative); Leukocyte Esterase Urine 1+ (Negative); Nitrite Urine Negative (Negative); Protein Urine 1+ (Negative); RBC Urine Automated 0-2 /hpf (0-2); Specific Gravity Urine 1.014 (1.000-1.030); Urobilinogen Urine Negative (Negative)
[2023-10-21] MEDS: INSULIN ASPART PER UNIT CHARGE SC SCH (21:07)
[2023-10-21] MEDS: ATORVASTATIN 40 MG TAB PO SCH (21:09)
[2023-10-21] MEDS: CYCLOBENZAPRINE HCL 5 MG TAB PO PRN (21:09)
[2023-10-21] MEDS: TAMSULOSIN HCL 0.4 MG CAP PO SCH (21:09)
[2023-10-21] MEDS: FUROSEMIDE INJ 20 MG/2 ML VIAL IV ONE (21:13)
[2023-10-21] MEDS: LACTATED RINGER'S 1,000 ML IV ONE (21:52)
[2023-10-21 23:23] LABS: Hematocrit (blood only) 21.5 % (42.0-52.0); Hemoglobin 6.9 g/dl (14.0-18.0)
[2023-10-22] MEDS: ACETAMINOPHEN 325 MG TAB PO PRN (04:17)
[2023-10-22 06:30] LABS: Hematocrit (blood only) 22.5 % (42.0-52.0); Hemoglobin 7.3 g/dl (14.0-18.0); Mean Corpuscular Hemoglobin 27.9 pg (25.0-34.0); Mean Corpuscular Hgb Conc 32.4 g/dL (32.0-36.0); Mean Corpuscular Volume 85.9 fL (80.0-100.0); Mean Platelet Volume 9.9 fL (9.4-12.4); Platelet Count 153 K/uL (130-400); RDW Coefficient of Variation 17.6 % (11.5-14.5); RDW Standard Deviation 55.9 fL (36.4-46.3); Red Blood Count 2.62 M/uL (4.70-6.10); White Blood Count 3.66 K/ul (4.8-10.8)
[2023-10-22 06:42] LABS: Calcium 7.5 mg/dl (8.6-10.3); Creatinine Clr Calc Pharmacy 19.6 ml/min; Est GFR (African American) 15.9 ml/min; Est GFR (Non-African American) 13.7 ml/min; Magnesium 1.5 mg/dl (1.7-2.4); Potassium 4.2 mmol/L (3.5-5.1)
[2023-10-22] MEDS: oxyCODONE HCL IR 5 MG TAB (IMMEDIATE RELEASE) PO PRN (06:53)
[2023-10-22 07:00] LABS: INR 1.7 (0.9-1.1); Prothrombin Time 17.5 Seconds (9.0-12.0)
--- NOTE | 2023-10-22 07:33 | Ultrasound Report ---
RENAL ULTRASOUND HISTORY: Acute kidney injury [place] COMPARISON: 06/15/2023 FINDINGS: Right kidney: 11.4 cm. No hydronephrosis. 1.1 cm cyst of the midpole, unchanged. Cortical thinning wi th increased parenchymal echogenicity redemonstrated. Left kidney: 11.4 cm. No hydronephrosis. 1.17 mm cyst of the inferior pole, stable. Cortical thinning with increased parenchymal echogenicity redemonstrated. Bladder: Mild wall thickening with partial distention. The bilateral ureteral jets were identified. IMPRESSION: 1. No renal calculi or hydronephrosis. 2. Unchanged appearance of the kidneys. ACT 112: Negative or not required by law. Electronically signed by: Monroe Lloyd M.D. 10/22/2023 7:31 AM
[2023-10-22] MEDS: MIDODRINE HCL 2.5 MG TAB PO SCH (09:14)
[2023-10-22] MEDS: METOPROLOL SUCC 25MG EXT REL TAB PO SCH (09:14)
[2023-10-22] MEDS: PANTOprazole 40 MG TAB PO SCH (11:47)
--- NOTE | 2023-10-22 11:49 | Gastrointestinal Consultation ---
Date of Consultation October 22, 2023 Assessment & Plan (1) Acute on chronic anemia: Anemia The patient has had chronic anemia which is also acutely gotten worse and I reviewed his records he had 1. Colonoscopy in 2021 which was essentially normal and the told to repeat in 10 years 2. EGD in September of this year which showed that he had a gastric bypass but otherwise it was absolutely normal He also had imaging which included a CT scan of his chest abdomen and pelvis without contrast which did not find any abnormality he has had an extensive blood work done also He is on Coumadin and I suspect that that he could have AVMs of the small bowel at the current time I would 1. Monitor H&H 2. Would not repeat endoscopy as he just had an EGD this within a month and a colonoscopy 2 years ago which recommended to repeat in 2 years but would rather do a video capsule endoscopy which can probably be done as an outpatient if the video capsule endoscopy is negative then he may need to have a repeat colonoscopy done also 3. May consider IV iron while in the hospital Thank you for allowing me to take part in the care of your patient will continue to follow him with you History of Present Illness Reason for Consultation: Anemia Requesting Physician: We will can Attending Physician: Rex Almendarez MD History of Present Illness Mr. Wilson is a very pleasant 73-year-old male with an extensive past medical history comprising of DM type II, diabetic neuropathy, PAD, CKD stage IV [baseline Cr ~ 3], dyslipidemia, secondary hyperparathyroidism, diabetic retinopathy with macular edema, sleep apnea [on BiPAP], nocturnal hypoxemia, history of cardiac pacemaker placement, chronic A-fib [on warfarin], chronic diabetic ulcer of R foot, HTN, venous insufficiency of both lower extremities, cerebrovascular disease, history of MRSA infection, history of right great toe amputation, orthostatic hypotension, history of paroxysmal SVT, atrophic pancreas, chronic anemia. He has not been feeling well for the last few months he states in approximately June to July he lost significant amount of weight since then he states his appetite has improved somewhat and his weight is also stabilized. He had an extensive evaluation done which included CAT scans as well as endoscopy at the current time he denies any dysphagia or reflux nausea vomiting or abdominal pain he states he has 1-2 bowel movements per day they are dark but of note he is also on iron therapy he states his weight has stabilized the reason for his admission was that he was very feeling very weak tired lethargic and on admission he was also found to be anemic since admission he has had 2 units of blood Allergies Allergy/AdvReac Type Severity Reaction Status Date / Time No Known Allergies Allergy Verified 10/21/23 17:49 Home Medications Medication Instructions Recorded Confirmed Type pediatric [id number] 1 tab PO PM ##0 04/11/13 10/21/23 History (Flintstones Complete (iron) chewable tablet) atorvastatin 40 mg tablet 40 mg PO PM #0 tabs 01/08/17 10/21/23 History cholecalciferol (vitamin D3) 25 2,000 unit PO PM 10/18/17 10/21/23 History mcg (1,000 unit) capsule (Vitamin D3) cyanocobalamin (vitamin B-12) 1,000 mcg PO PM 05/06/19 10/21/23 History 1,000 mcg tablet tamsulosin 0.4 mg capsule 0.4 mg PO PM 05/06/19 10/21/23 History magnesium oxide 400 mg PO QAM 09/26/19 10/21/23 History acetaminophen 500 mg tablet 1,000 mg PO Q6H PRN Pain 12/17/20 10/21/23 History aspirin 81 mg tablet 81 mg PO DAILY 12/21/20 10/21/23 History warfarin 3 mg tablet See Rx Instructions .Route .COMPLEX 10/07/22 10/21/23 History metoprolol succinate 25 mg 25 mg PO QAM #30 tabs 10/16/22 10/21/23 Rx tablet,extended release 24 hr midodrine 2.5 mg tablet 2.5 mg PO TID@0800,1200,1700 #90 06/27/23 10/21/23 Rx tabs potassium chloride 20 mEq 0 meq PO QAM 08/01/23 10/21/23 History tablet,extended release(part/cryst) L.acidop,casei,lactis,rham-B.lact,scot 1 cap PO DAILY #30 caps 08/07/23 10/21/23 Rx 625 mg (10 billion cell) capsule (Advanced Probiotic) cyclobenzaprine 10 mg tablet 10 mg PO Q8H PRN Muscle Spasms 10/21/23 10/21/23 History oxycodone 5 mg tablet 5 mg PO Q6H PRN Pain 10/21/23 10/21/23 History torsemide 20 mg tablet 20 mg PO BID 10/21/23 10/21/23 History Patient History Medical History MRSA infection Hyperlipemia Essential hypertension 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 kidney disease Degenerative cervical spinal stenosis Degenerative lumbar spinal stenosis Proliferative diabetic retinopathy Venous insufficiency of both lower extremities Erectile dysfunction 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 Hyperparathyroidism, secondary renal Esophageal obstruction Complex sleep apnea syndrome Vitamin B12 deficiency Persistent proteinuria Paroxysmal SVT (supraventricular tachycardia) Myocardial Infarction 2017 > medically managed CHF (congestive heart failure) Acute renal failure superimposed on stage 3 chronic kidney disease 08/2020 hospitalization, UTI and osteomyelitis, necrotizing fasciitis Depression Sepsis 2013 Surgical History History of amputation of lesser toe of right foot Hx of angioplasty Amputation toe Right great toe amputation (08/12/20): [facility] at [facility] History of esophagogastroduodenoscopy (EGD) History of vascular surgery Left popliteal, EVELINE TPT/proximal ASBESTOS REMOVER (10/2019) Right great toe I&D, revision amputation (08/21/20): MAC at [facility] History of hand surgery Tendon transfer Gastric bypass status for obesity Family History Brother Diabetes Mother Diabetes Father Diabetes Other Cancer Hypertension Social History Smoking Status: Former smoker Tobacco Type: Cigarettes Cigarettes Per Day: quit a long time ago; Smoking End Date: 1979; Second Hand Exposure: No; Do You Dip or Chew Tobacco: No; Hx Alcohol Use: Yes Alcohol type: beer and wine Alcohol Intake Frequency: Monthly or Less Hx Substance Use: No Preferred Language: Estonian 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 Ability: Effective Visual Impairment: No Limitations 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 current occupational status: retired How many Children do You have: 2 Feels Safe at Home: Yes Safety Concerns: Feels Safe At This Time Diet Comment: Educated to increase protein, vitamin c, d and zinc Assistive Devices: Cane, Walker and Other Review of Systems Review of Systems: A 10 point review of systems was done Physical Exam Constitutional: WD/WN, vitals as above Eyes: PERRL, conjunctivae normal, anicteric sclerae Neck: supple Respiratory: normal respiratory effort, lungs clear to auscultation Cardiovascular: S1 and S 2 Gastrointestinal (Abdomen): normal bowel sounds, soft, nontender, no hepatosplenomegaly Results & Data Vital Signs (Past 12 Hours) Vital Signs Temp Pulse Pulse Resp BP BP Pulse Ox 10/22/23 07:00 36.8 C 64 20 114/63 99 10/22/23 06:54 60 10/22/23 04:12 36.9 C 60 18 120/71 98 10/22/23 02:11 36.6 C 60 18 117/71 97 10/22/23 01:01 36.6 C 60 18 123/69 98 10/22/23 00:31 36.5 C 60 18 113/65 97 10/22/23 00:16 36.6 C 60 18 114/64 98 10/22/23 00:11 36.6 C 60 14 118/68 98 10/21/23 23:57 36.8 C 60 16 117/69 98 O2 Del Method 10/22/23 07:00 Room Air 10/22/23 06:54 10/22/23 04:12 Room Air 10/22/23 02:11 10/22/23 01:01 10/22/23 00:31 10/22/23 00:16 10/22/23 00:11 10/21/23 23:57 PG Care Time/CCT Total # of Minutes Spent Total Time Spent with Patient: Total time spent is greater than 50% in coordination of care (as documented) at patient's floor/unit and/or counseling patient: Coding Level of Care Code 29614 IN/OBS CONSULT LVL 3,45M History Expanded Problem Focused Exam Expanded Problem Focused Medical Decision Making Moderate Complexity Diagnoses Acute on chronic anemia D64.9
[2023-10-22 12:09] LABS: Basophils # (auto) 0.01 K/uL (0.00-0.20); Basophils % (auto) 0.3 %; Eosinophils # (auto) 0.08 K/uL (0.00-0.50); Eosinophils % (auto) 2.4 %; Hematocrit (blood only) 24.1 % (42.0-52.0); Hemoglobin 7.6 g/dl (14.0-18.0); Lymphocytes # (auto) 0.74 K/uL (1.20-3.40); Mean Corpuscular Hemoglobin 27.7 pg (25.0-34.0); Mean Corpuscular Hgb Conc 31.5 g/dL (32.0-36.0); Mean Platelet Volume 10.3 fL (9.4-12.4); Monocytes # (auto) 0.37 K/uL (0.11-0.59); Neutrophils # (auto) 2.17 K/uL (1.40-6.50); Neutrophils % (auto) 64.3 %; Platelet Count 161 K/uL (130-400); RDW Coefficient of Variation 17.8 % (11.5-14.5); RDW Standard Deviation 56.6 fL (36.4-46.3); Red Blood Count 2.74 M/uL (4.70-6.10); White Blood Count 3.37 K/ul (4.8-10.8)
[2023-10-22 12:27] LABS: Acanthocytes 1+; Ovalocytes 1+; Polychromasia 1+
--- NOTE | 2023-10-22 13:12 | Hospitalist Progress Note ---
Date of Service October 22, 2023 Assessment & Plan (1) Acute on chronic anemia: (2) GIB (gastrointestinal bleeding): Plan Lg Cooley is a 73y/o M with significant PMHx of DM type II, diabetic neuropathy, PAD, CKD stage IV [baseline Cr ~ 3], dyslipidemia, secondary hyperparathyroidism, diabetic retinopathy with macular edema, sleep apnea [on BiPAP], nocturnal hypoxemia, history of cardiac pacemaker placement, chronic A- fib [on warfarin], chronic diabetic ulcer of R foot, HTN, venous insufficiency of both lower extremities, cerebrovascular disease, history of MRSA infection, history of right great toe amputation, orthostatic hypotension, history of paroxysmal SVT, atrophic pancreas, chronic anemia [baseline Hgb ~8] and other problems listed below who presented to the ED today for evaluation via referral from his PCP secondary to a low Hgb level on 6.8 discovered on recent outpatient labs. Acute GI Bleeding Symptomatic Acute on Chronic Anemia: History as per HPI and above. Hemoccult positive in ED. Hgb 6.8 on presentation. IV Protonix bolus/drip started in ED - continue. 2 units PRBCs ordered to be administered. 10mg Lasix x 1 following 1st unit of PRBCs. Clear liquid diet. NPO at midnight pending potential scope by GI tomorrow. Hemoccult was positive during this admission Hold warfarin and ASA. Appreciate GI input and recommendation-colonoscopy was done in 2021 and was advised to have repeat in 10 years and EGD was done in September did not show any bleeding Not to have any EGD and a colonoscopy until the condition gets worse and bleeding continues Advised to have IV iron Status post 2 unit of blood transfusion with repeat hemoglobin of 7.6 Will recheck hemoglobin in 12 hours and tomorrow morning Chronic Afib: Continue metoprolol succinate. INR 2.1 today, IV vitamin K ordered. DERMATOLOGY NURSE PRACTITIONER warfarin and ASA on hold 2/2 active GI bleeding. Repeat PT/INR in AM. INR is 1.7 today and Coumadin is on hold INR is expected to drop as he received vitamin K CKD Stage IV Acute Kidney Injury: Cr 4.26 on admission, appears baseline Cr ~3 per chart review. Patient follows w/ [facility]. Routine nephrology consult. Renal/bladder US pending. UA pending. Kidney function is slightly worse Awaiting nephrology evaluation and recommendation DM Type II: Hold home agents, SSI regimen while inpatient. BSG checks ACHS. Hgb A1c was 6.3% on 08/23/23. Sleep Apnea: Continue BiPAP HS. Orthostatic Hypotension: Continue midodrine. Close BP monitoring on telemetry. Chronic Diabetic Ulcer of Both Feet: Follows / [facility] [Jhony Aquino DPM]. Has wound vac in place on LLE. No leukocytosis noted. 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 Other Chronic Medical Conditions: Dyslipidemia, BPH --> Continue home meds for these specific conditions. DVT Prophylaxis: SCDs/TEDs for now ISO active GI bleeding, DERMATOLOGY NURSE PRACTITIONER warfarin on hold. Code Status: FULL CODE PCP: Jocelyne Desai DO Disposition: Admit to PCU/Telemetry Admission and Anticipated Discharge Date Admission Date: October 21, 2023 Subjective 10/22/2023 The patient was seen and examined in telemetry unit He has been complaining of exertional dyspnea for a while and noted to have more shortness of breath yesterday after mowing low blood count Denies any blood vomiting and/or coffee-ground vomiting or any black stool Denies any chest pain, palpitation, abdominal pain, nausea and vomiting Review of Systems Review of Systems: All systems reviewed and are unremarkable except as noted below Physical Exam Physical Exam: Lying in bed without any acute distress Constitutional: average body habitus; not ill appearing Eyes: PERRL, conjunctivae normal, anicteric sclerae ENMT: external ear and nose normal, oropharynx normal Neck: trachea midline, no thyromegaly Respiratory: no respiratory distress Auscultation: lungs clear to auscultation bilaterally Cardiovascular: Rate/Rhythm: regular rate and regular rhythm Heart Sounds: normal S1 and normal S2; no murmur Extremities: no edema Gastrointestinal (Abdomen): Inspection/Auscultation: normal bowel sounds; abdomen not distended Percussion/Palpation: abdomen soft; abdomen nontender Musculoskeletal: No acute arthritis involving any joint Neurologic: normal touch/pain/proprioception and moves all extremities; no focal motor deficits Psychiatric: A+Ox3, euthymic affect Lymphatic: no cervical or axillary lymphadenopathy Results & Data Results & Data Vital Signs (Past 12 Hours) Vital Signs Temp Pulse Pulse Resp BP BP Pulse Ox 10/22/23 11:47 36.5 C 61 19 126/69 99 10/22/23 07:00 36.8 C 64 20 114/63 99 10/22/23 06:54 60 10/22/23 04:12 36.9 C 60 18 120/71 98 10/22/23 02:11 36.6 C 60 18 117/71 97 O2 Del Method 10/22/23 11:47 Room Air 10/22/23 07:00 Room Air 10/22/23 06:54 10/22/23 04:12 Room Air 10/22/23 02:11 Laboratory Results Short CBC 10/21/23 10/21/23 10/22/23 Range/Units 16:43 22:31 06:08 WBC 5.33 3.66 L (4.8-10.8) K/ul Hgb 6.8 L* 6.9 L* 7.3 L (14.0-18.0) g/dl Hct 22.7 L 21.5 L 22.5 L (42.0-52.0) % Plt Count 225 153 (130-400) K/uL 10/22/23 Range/Units 11:51 WBC 3.37 L (4.8-10.8) K/ul Hgb 7.6 L (14.0-18.0) g/dl Hct 24.1 L (42.0-52.0) % Plt Count 161 (130-400) K/uL BMP 10/21/23 10/22/23 16:43 06:08 Sodium 136 137 Potassium 4.7 4.2 Chloride 108 H 111 H Carbon Dioxide 18 L 18 L BUN 85 H 82 H Creatinine 4.26 H 4.10 H Glucose 99 99 Calcium 7.9 L 7.5 L Liver Function 10/21/23 Range/Units 16:43 Total Bilirubin 0.3 (0.2-1.0) mg/dl AST 20 (13-39) U/L ALT 20 (7-52) U/L Alkaline Phosphatase 60 (34-104) U/L Albumin 3.7 (3.4-5.0) gm/dl Urine 10/21/23 Range/Units Unknown Urine Color Yellow Urine Appearance Clear (Clear) Urine pH 5.0 (4.5-7.5) Ur Specific Merrick 1.014 (1.000-1.030) Urine Protein 1+ H (Negative) Urine Glucose (UA) Negative (Negative) Medications Administered Current Inpatient Medications Acetaminophen (Acetaminophen 325 Mg Tab) 650 mg PO Q6H PRN PRN Reason: Pain or Fever Stop: 11/20/23 19:08 Last Admin: 10/22/23 04:17 Dose: 650 mg Atorvastatin Calcium (Atorvastatin 40 Mg Tab) 40 mg PO PM [facility] Stop: 11/20/23 20:59 Last Admin: 10/21/23 21:09 Dose: 40 mg Cyclobenzaprine HCl (Cyclobenzaprine Hcl 5 Mg Tab) 5 mg PO BID PRN PRN Reason: leg spasms Stop: 11/20/23 20:59 Last Admin: 10/22/23 09:14 Dose: 5 mg Dextrose (Dextrose 50% 50 Ml Syringe) 25 - 50 ml IV UD PRN; Protocol PRN Reason: Hypoglycemia Protocol Stop: 11/20/23 19:08 Glucagon (Glucagon For Inj 1 Mg Vial) 1 mg SQ UD PRN; Protocol PRN Reason: Hypoglycemia Protocol Stop: 11/20/23 19:08 Glucose (Glucose 40% Gel 15 Gm Tube) 15 - 30 gm PO UD PRN; Protocol PRN Reason: Hypoglycemia Protocol Stop: 11/20/23 19:08 Glucose (Glucose 10 Tab/Tube) 4 - 8 tab PO UD PRN; Protocol PRN Reason: Hypoglycemia Treatment Stop: 11/20/23 19:08 Lactated Ringer's (Lr) 1,000 mls @ 50 mls/hr IV .Q20H ONE Stop: 10/22/23 17:59 Last Admin: 10/21/23 21:52 Dose: 50 mls/hr Insulin Aspart (Insulin Aspart Per Unit Charge) 0 units SC ACHS [facility] Stop: 11/20/23 20:59 Last Admin: 10/22/23 11:46 Dose: Not Given Metoprolol Succinate (Metoprolol Succ 25mg Ext Rel Tab) 25 mg PO QAM [facility] Stop: 11/21/23 08:59 Last Admin: 10/22/23 09:14 Dose: 25 mg Midodrine (Midodrine Hcl 2.5 Mg Tab) 2.5 mg PO TID@0800,1200,1700 [facility] Stop: 11/21/23 07:59 Last Admin: 10/22/23 12:31 Dose: 2.5 mg Miscellaneous (Carbohydrates For Hypoglycemia ) 15 - 30 gm PO UD PRN PRN Reason: Hypoglycemia Protocol Stop: 11/20/23 19:08 Ondansetron HCl (Ondansetron Inj 2 Mg/Ml 2 Ml Vial) 4 mg IV Q6H PRN PRN Reason: Nausea Stop: 11/20/23 19:08 Oxycodone HCl (Oxycodone Hcl Ir 5 Mg Tab (Immediate Release)) 5 mg PO Q6H PRN PRN Reason: Pain Stop: 11/04/23 19:08 Last Admin: 10/22/23 06:53 Dose: 5 mg Pantoprazole Sodium (Pantoprazole 40 Mg Tab) 40 mg PO QAM [facility] Stop: 11/21/23 10:59 Last Admin: 10/22/23 11:47 Dose: 40 mg Polyethylene Glycol (Polyethylene (Miralax) 17 Gm Pack) 17 gm PO DAILY PRN PRN Reason: Constipation Stop: 11/20/23 19:08 Tamsulosin HCl (Tamsulosin Hcl 0.4 Mg Cap) 0.4 mg PO PM [facility] Stop: 11/20/23 20:59 Last Admin: 10/21/23 21:09 Dose: 0.4 mg (2) GIB (gastrointestinal bleeding) GI bleed type/associated pathology: unspecified gastrointestinal hemorrhage type Qualified Code(s): K92.2 - Gastrointestinal hemorrhage, unspecified
--- NOTE | 2023-10-22 13:33 | Nephrology Consultation ---
Date of Consultation October 22, 2023 Assessment & Plan (1) JORGE (acute kidney injury): Creat 4.3 on adx and now down a bit with urine to 4.1. will follow renal labs. Slight worsening could be related with volume issue, worsened anemia or just progression of his CKD. No need for detailed workup here. Can stop IV fluids. But hold diuretic at least today. Cant hold for too long. Do CXR x 2 view. Daily renal panel (2) CKD (chronic kidney disease) stage 4, GFR 15-29 ml/min: He has baseline CKD 4 and almost Stage 5 lately from classic Diabetic nephropathy/HTN/Vascular Dz with proteinuria. Poor renal prognosis and most likely will need Dialysis within next few months (3) Symptomatic anemia: (4) Acute GI bleeding: He has Sig baseline Anemia form CKD, recent infections. possibly has Some GI bleed on top of that. Now after PRBC hgb is up to 7.6. Daily CBC I did review GI note. He needs CHARLES if no contraindication Plan [facility] and involved with pre hospital as well as hospital. reviewed GI consult note and Discussed plan with primary team. time spent 70 mins. History of Present Illness Attending Physician: Rex Almendarez MD History of Present Illness 73/M wih long standing DM type II, diabetic neuropathy, CKD 4 with baseline creat lately in the low to mid 3's, Orthostatic Hypotension on midodrine, PAD, diabetic retinopathy with macular edema, sleep apnea [on BiPAP], nocturnal hypoxemia, history of cardiac pacemaker placement, chronic A-fib [on warfarin], chronic diabetic ulcer of R foot, HTN, venous insufficiency of both lower extremities, cerebrovascular disease, history of MRSA infection, history of right great toe amputation, orthostatic hypotension, history of paroxysmal SVT, atrophic pancreas, chronic anemia of CKD [baseline Hgb ~8] and other problems listed below who presented to the ED today for evaluation via referral from his PCP secondary to a low Hgb level on 6.4 and creat higher thn baseline at 4+ . Patient reports he has been experiencing SOB but has gotten significantly worse over the past few days. Has not noticed any black stools or BRBPR. No fever, chills or body aches. Denies any lightheadedness or dizziness. He does not wear supplemental O2 at baseline. Had an EGD done on 09/14/23 that was normal. Last colonoscopy was done 09/08/21 that was normal as well. No known history of GI bleeding per patient. However hemeoccult was + ve in the ED. IV Protonix bolus/drip started in ED. 2 units PRBCs ordered to be administered. GI has seen patient already and said no Scope at this time. Creat was on adx 4.3 and now slightly lower 4.1. electrolytes are fine. hgb after PRBC is 7.6 Asa and Coumadin on hold. Home dose of torsemide 20 bid on hold. Getting RL at 50 ml/hr Current vital signs are good. on Room air. Made 780 ml urine so far. renal US done and fine ROS---see HPi. 12 Systems reviewed and otherwise negative Physical Exam Physical Exam: Constitutional: Awake and alert. NO distress Eyes: PERRL, conjunctivae normal, anicteric sclerae ENMT: external ear and nose normal, oropharynx normal Neck: trachea midline,no JVD Respiratory: no respiratory distress Auscultation: lungs clear to auscultation bilaterally Cardiovascular: Rate/Rhythm: regular rate and regular rhythm Heart Sounds: normal S1 and normal S2; no murmur Extremities: no edema Gastrointestinal (Abdomen): Inspection/Auscultation: normal bowel sounds; abdomen not distended Percussion/Palpation: abdomen soft; abdomen nontender Musculoskeletal: No acute arthritis involving any joint Neurologic: normal touch/pain/proprioception and moves all extremities; no focal motor deficits Psychiatric: A+Ox3, euthymic affect Allergies Allergy/AdvReac Type Severity Reaction Status Date / Time No Known Allergies Allergy Verified 10/21/23 17:49 Home Medications Medication Instructions Recorded Confirmed Type pediatric uixekhgk-rose-njl 1 tab PO PM ##0 04/11/13 10/21/23 History ([place] Complete (iron) chewable tablet) atorvastatin 40 mg tablet 40 mg PO PM #0 tabs 01/08/17 10/21/23 History cholecalciferol (vitamin D3) 25 2,000 unit PO PM 10/18/17 10/21/23 History mcg (1,000 unit) capsule (Vitamin D3) cyanocobalamin (vitamin B-12) 1,000 mcg PO PM 05/06/19 10/21/23 History 1,000 mcg tablet tamsulosin 0.4 mg capsule 0.4 mg PO PM 05/06/19 10/21/23 History magnesium oxide 400 mg PO QAM 09/26/19 10/21/23 History acetaminophen 500 mg tablet 1,000 mg PO Q6H PRN Pain 12/17/20 10/21/23 History aspirin 81 mg tablet 81 mg PO DAILY 12/21/20 10/21/23 History warfarin 3 mg tablet See Rx Instructions .Route .COMPLEX 10/07/22 10/21/23 History metoprolol succinate 25 mg 25 mg PO QAM #30 tabs 10/16/22 10/21/23 Rx tablet,extended release 24 hr midodrine 2.5 mg tablet 2.5 mg PO TID@0800,1200,1700 #90 06/27/23 10/21/23 Rx tabs potassium chloride 20 mEq 0 meq PO QAM 08/01/23 10/21/23 History tablet,extended release(part/cryst) L.acidop,casei,lactis,rham-B.lact,scot 1 cap PO DAILY #30 caps 08/07/23 10/21/23 Rx 625 mg (10 billion cell) capsule (Advanced Probiotic) cyclobenzaprine 10 mg tablet 10 mg PO Q8H PRN Muscle Spasms 10/21/23 10/21/23 History oxycodone 5 mg tablet 5 mg PO Q6H PRN Pain 10/21/23 10/21/23 History torsemide 20 mg tablet 20 mg PO BID 10/21/23 10/21/23 History Patient History Medical History MRSA infection Hyperlipemia Essential hypertension 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 kidney disease Degenerative cervical spinal stenosis Degenerative lumbar spinal stenosis Proliferative diabetic retinopathy Venous insufficiency of both lower extremities Erectile dysfunction Nonalcoholic 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 (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 Hyperparathyroidism, secondary renal Esophageal obstruction Complex sleep apnea syndrome Vitamin B12 deficiency Persistent proteinuria Paroxysmal SVT (supraventricular tachycardia) Myocardial Infarction 2017 > medically managed CHF (congestive heart failure) Acute renal failure superimposed on stage 3 chronic kidney disease 08/2020 hospitalization, UTI and osteomyelitis, necrotizing fasciitis Depression Sepsis 2013 Surgical History History of amputation of lesser toe of right foot Hx of angioplasty Amputation toe Right great toe amputation (08/12/20): MAC at [facility] History of esophagogastroduodenoscopy (EGD) History of vascular surgery Left popliteal, 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) Right great toe I&D, revision amputation (08/21/20): MAC at [facility] History of hand surgery Tendon transfer Gastric bypass status for obesity Family History Brother Diabetes Mother Diabetes Father Diabetes Other Cancer Hypertension Social History Smoking Status: Former smoker Tobacco Type: Cigarettes Cigarettes Per Day: quit a long time ago; Smoking End Date: 1979; Second Hand Exposure: No; Do You Dip or Chew Tobacco: No; Hx Alcohol Use: Yes Alcohol type: beer and wine Alcohol Intake Frequency: Monthly or Less Hx Substance Use: No Preferred Language: Gabonese 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 Ability: Effective Visual Impairment: No Limitations Hearing Ability: Normal Mail Opener Required: No Beliefs That Will Affect Care: None marital status: Current Living Situation: Alone Current Living Situation Comment: Daughter lives upstairs. current occupational status: retired How many Children do You have: 2 Feels Safe at Home: Yes Safety Concerns: Feels Safe At This Time Diet Comment: Educated to increase protein, vitamin c, d and zinc Assistive Devices: Cane, Walker and Other Results & Data Vital Signs (Past 12 Hours) Vital Signs Temp Pulse Pulse Resp BP BP Pulse Ox 10/22/23 11:47 36.5 C 61 19 126/69 99 10/22/23 07:00 36.8 C 64 20 114/63 99 10/22/23 06:54 60 10/22/23 04:12 36.9 C 60 18 120/71 98 10/22/23 02:11 36.6 C 60 18 117/71 97 O2 Del Method 10/22/23 11:47 Room Air 10/22/23 07:00 Room Air 10/22/23 06:54 10/22/23 04:12 Room Air 10/22/23 02:11 Laboratory Results CBC, renal Panel, Renal US and urine tests
--- NOTE | 2023-10-22 14:58 | XRay Report ---
XR chest 2V PA/lateral HISTORY: 73 years-old Male SOb acute shortness of breath COMPARISON: 08/01/2023 TECHNIQUE: PA and lateral views of the chest FINDINGS: Cardiac silhouette is normal. A left subclavian pacer is noted. Cervical spinal fusion hardware. No p neumothorax, pleural effusion or airspace consolidation. The bones appear intact. IMPRESSION: No acute process. ACT 112: Negative or not required by law. The above report was generated using voice recognition software. It may contain grammatical, syntax o r spelling errors. Electronically signed by: Monroe Lloyd M.D. 10/22/2023 2:56 PM
--- NOTE | 2023-10-22 22:29 | Electrocardiogram Report ---
Test Reason : Blood Pressure : */* mmHG Vent. Rate : 64 BPM Atrial Rate : 54 BPM P-R Int : * ms QRS Dur : 188 ms QT Int : 510 ms P-R-T Axes : * -74 101 degrees QTcB Int : 526 ms Poor data quality, interpretation may be adversely affected Ventricular-paced rhythm Abnormal ECG When compared with ECG of 01-Aug-2023 08:49, Vent. rate has increased by 4 bpm Confirmed by Danilo Watson ([id number]) on 10/22/2023 10:29:06 PM Referred By: Jocelyne Desai Confirmed By: Danilo Watson
[2023-10-22 22:53] LABS: Hematocrit (blood only) 25.1 % (42.0-52.0); Hemoglobin 7.7 g/dl (14.0-18.0)
[2023-10-23 07:08] LABS: Basophils # (auto) 0.01 K/uL (0.00-0.20); Basophils % (auto) 0.3 %; Eosinophils # (auto) 0.15 K/uL (0.00-0.50); Eosinophils % (auto) 3.9 %; Hematocrit (blood only) 24.2 % (42.0-52.0); Hemoglobin 7.6 g/dl (14.0-18.0); Immature Granulocytes # (auto) 0.01 K/uL (0.01-0.20); Immature Granulocytes % (auto) 0.3 %; Lymphocytes % (auto) 25.8 %; Mean Corpuscular Hemoglobin 27.8 pg (25.0-34.0); Mean Corpuscular Hgb Conc 31.4 g/dL (32.0-36.0); Mean Corpuscular Volume 88.6 fL (80.0-100.0); Mean Platelet Volume 10.7 fL (9.4-12.4); Monocytes # (auto) 0.38 K/uL (0.11-0.59); Monocytes % (auto) 9.8 %; Neutrophils # (auto) 2.32 K/uL (1.40-6.50); Neutrophils % (auto) 59.9 %; Platelet Count 175 K/uL (130-400); RDW Coefficient of Variation 17.9 % (11.5-14.5); RDW Standard Deviation 57.4 fL (36.4-46.3); Red Blood Count 2.73 M/uL (4.70-6.10); White Blood Count 3.87 K/ul (4.8-10.8)
[2023-10-23 07:35] LABS: Calcium 7.6 mg/dl (8.6-10.3); Potassium 4.1 mmol/L (3.5-5.1)
[2023-10-23 07:40] LABS: BUN Creatinine Ratio 17.9 (10-20); Creatinine Clr Calc Pharmacy 18.7 ml/min; Est GFR (African American) 14.9 ml/min; Est GFR (Non-African American) 12.9 ml/min
[2023-10-23 08:05] LABS: Acanthocytes 1+; Ovalocytes 1+; Polychromasia 1+
--- NOTE | 2023-10-23 09:39 | Gastroenterology Progress Note ---
Date of Service October 23, 2023 Assessment & Plan (1) Symptomatic anemia: Plan: 73 year old male with history of T2DM, diabetic neuropathy, PAD, CKD-IV, dyslipidemia, hyperparathyroidism, MINERVA, nocturnal hypoxemia, cardiac pacemaker placement, chronic A-fib [on warfarin], history of paroxysmal SVT, atrophic pancreas, chronic anemia admitted with symptomatic anemia without evidence of acute GI bleeding. Recent EGD last month Attending recommend OP VCE for evaluation Supportive measures Trend H&H Monitor and document GI output Transfuse PRN Recall GI as needed Thank you for allowing us to participate in the care of this patient. Please call with any acute changes, questions or concerns. Please see addendum below with additional recommendation from my supervising physician. Admission and Anticipated Discharge Date Admission Date: October 21, 2023 Supervising Physician Co-Signing Physician Notes I examined the patient and reviewed the medical record, laboratory data and imaging studies. I agree with the assessment and plan of care as suggested by the advanced practice provider. Patient appears very comfortable today states he has not had a bowel movement since yesterday morning his hemoglobin has been stable he estimates he has had an EGD about a month ago he had a colonoscopy approximately 2 years ago he is on Coumadin I suspect he has AVMs of the small bowel I would recommend he gets a video capsule endoscopy he states he is followed at [facility] and instructed to get follow-up with his valet attendant and [facility] and get a video capsule endoscopy based upon those results he may need a repeat colonoscopy will monitor H&H in the meantime thank you for allowing us to take part in the care of your patient we will continue to follow him with you Subjective Pt was seen and evaluated, chart reviewed. No acute events noted overnight. Feels well from a GI standpoint. Denies black stools. Notes dark, brown stools. No BRBPR. No report of coffee ground emesis or hematemesis. Review of Systems Review of Systems: All other findings negative except as noted in HPI. Physical Exam Constitutional: WD/WN, vitals as above Respiratory: normal respiratory effort, lungs clear to auscultation Cardiovascular: RRR, no murmur, no edema Gastrointestinal (Abdomen): normal bowel sounds, soft, nontender, no hepatosplenomegaly Skin: no rashes, warm and dry Results & Data Results & Data Vital Signs (Past 12 Hours) Vital Signs Temp Pulse Pulse Resp BP Pulse Ox O2 Del Method 09/09/24 08:00 36.6 C 62 18 136/75 99 Room Air 10/23/23 03:00 36.9 C 60 21 128/74 99 Room Air 10/22/23 22:15 36.8 C 62 20 121/72 97 Room Air 10/22/23 22:05 60 Laboratory Results 10/23/23 10/22/23 10/22/23 Range/Units 06:42 22:35 11:51 WBC 3.87 L 3.37 L (4.8-10.8) K/ul RBC 2.73 L 2.74 L (4.70-6.10) M/uL Hgb 7.6 L 7.7 L 7.6 L (14.0-18.0) g/dl Hct 24.2 L 25.1 L 24.1 L (42.0-52.0) % MCV 88.6 88.0 (80.0-100.0) fL MCH 27.8 27.7 (25.0-34.0) pg MCHC 31.4 L 31.5 L (32.0-36.0) g/dL RDW Std Deviation 57.4 H 56.6 H (36.4-46.3) fL RDW Coeff of Jason 17.9 H 17.8 H (11.5-14.5) % Plt Count 175 161 (130-400) K/uL MPV 10.7 10.3 (9.4-12.4) fL Immature Gran % (Auto) 0.3 0.0 % Neut % (Auto) 59.9 64.3 % Lymph % (Auto) 25.8 22.0 % Warrick % (Auto) 9.8 11.0 % Eos % (Auto) 3.9 2.4 % Baso % (Auto) 0.3 0.3 % Neut # (Auto) 2.32 2.17 (1.40-6.50) K/uL Lymph # (Auto) 1.00 L 0.74 L (1.20-3.40) K/uL Warrick # (Auto) 0.38 0.37 (0.11-0.59) K/uL Eos # (Auto) 0.15 0.08 (0.00-0.50) K/uL Baso # (Auto) 0.01 0.01 (0.00-0.20) K/uL Immature Gran # (Auto) 0.01 0.00 L (0.01-0.20) K/uL Polychromasia 1+ 1+ Ovalocytes 1+ 1+ Acanthocytes (Spur) 1+ 1+ Sodium 137 (136-145) mmol/L Potassium 4.1 (3.5-5.1) mmol/L Chloride 111 H (98-107) mmol/L Carbon Dioxide 16 L (21-32) mmol/L Anion Gap 10 (3-11) BUN 77 H (6-23) mg/dl Creatinine 4.31 H (0.6-1.4) mg/dl Est Cr Clr Drug Dosing 18.7 ml/min Est GFR ( Amer) 14.9 ml/min Est GFR (Non-Af Amer) 12.9 ml/min BUN/Creatinine Ratio 17.9 (10-20) Glucose 87 (70-99(Fasting)) mg/dl POC Glucose (70-99) mg/dl Calcium 7.6 L (8.6-10.3) mg/dl 10/22/23 Range/Units 11:26 WBC (4.8-10.8) K/ul RBC (4.70-6.10) M/uL Hgb (14.0-18.0) g/dl Hct (42.0-52.0) % MCV (80.0-100.0) fL MCH (25.0-34.0) pg MCHC (32.0-36.0) g/dL RDW Std Deviation (36.4-46.3) fL RDW Coeff of Jason (11.5-14.5) % Plt Count (130-400) K/uL MPV (9.4-12.4) fL Immature Gran % (Auto) % Neut % (Auto) % Lymph % (Auto) % Warrick % (Auto) % Eos % (Auto) % Baso % (Auto) % Neut # (Auto) (1.40-6.50) K/uL Lymph # (Auto) (1.20-3.40) K/uL Warrick # (Auto) (0.11-0.59) K/uL Eos # (Auto) (0.00-0.50) K/uL Baso # (Auto) (0.00-0.20) K/uL Immature Gran # (Auto) (0.01-0.20) K/uL Polychromasia Ovalocytes Acanthocytes (Spur) Sodium (136-145) mmol/L Potassium (3.5-5.1) mmol/L Chloride (98-107) mmol/L Carbon Dioxide (21-32) mmol/L Anion Gap (3-11) BUN (6-23) mg/dl Creatinine (0.6-1.4) mg/dl Est Cr Clr Drug Dosing ml/min Est GFR ( Amer) ml/min Est GFR (Non-Af Amer) ml/min BUN/Creatinine Ratio (10-20) Glucose (70-99(Fasting)) mg/dl POC Glucose 131 H (70-99) mg/dl Calcium (8.6-10.3) mg/dl PG Care Time/CCT Total # of Minutes Spent Total Time Spent with Patient: Total time spent is greater than 50% in coordination of care (as documented) at patient's floor/unit and/or counseling patient: Coding Level of Care Code 40418 SUB INP/OBS CARE 2/35MIN Diagnoses Symptomatic anemia D64.9
--- NOTE | 2023-10-23 11:50 | Nephrology Progress Note ---
Date of Service October 23, 2023 Assessment & Plan (1) JORGE (acute kidney injury): Plan: Creat 4.3 on admission and plateau'd ; 2 view CXR on 10/21 shows no overload or acute CP process will follow renal labs. Slight worsening could be related with volume issue, worsened anemia or just progression of his CKD >> his renal function has declined considerably since early this year; has rapidly progressive CKD. >will hold diuretics again today -Daily renal panel (2) CKD (chronic kidney disease) stage 4, GFR 15-29 ml/min: Plan: He has baseline CKD 4 and almost Stage 5 lately from classic Diabetic nephropathy/HTN/Vascular Dz with proteinuria. Poor renal prognosis and most likely will need Dialysis within next few months (3) Acute GI bleeding: Plan: He has Sig baseline Anemia from CKD, recent infections. possibly has Some GI bleed on top of that. for GI OP f/u Now after PRBC hgb is up to 7.6. Daily CBC He needs CHARLES if no contraindication Admission and Anticipated Discharge Date Admission Date: October 21, 2023 Subjective GI recommends OP VCE, supportive care. pt seen and evaluated on late AM rounds; denies sob, n/v, worsening edema, active bleeding, or chest pain. Review of Systems 2 Review of Systems: All systems reviewed & are unremarkable except as noted in Subjective Physical Exam 2 Constitutional: well developed, well nourished, + frail appearing and cooperative; no acute distress Eyes: EOM intact bilaterally ENMT: Ears: no external ear abnormality Nose: no external nose abnormality Mouth: + dry oral mucous membranes Neck: no nuchal rigidity Respiratory: normal respiratory effort Auscultation: + diminished lung sounds Cardiovascular: Rate/Rhythm: regular rate and regular rhythm Extremities: + edema (trace BLE) Gastrointestinal (Abdomen): Inspection/Auscultation: normal bowel sounds P ercussion/Palpation: abdomen soft; abdomen nontender Musculoskeletal: Extremities: strength 5/5 throughout Skin: no rashes, warm and dry Neurologic: wolf, fluent speech, no tremor Results & Data Vital Signs (Past 12 Hours) Vital Signs Temp Pulse Resp BP Pulse Ox Pulse Ox O2 Del Method 10/23/23 10:40 99 10/23/23 08:00 36.6 C 62 18 136/75 99 Room Air 10/23/23 03:00 36.9 C 60 21 128/74 99 Room Air O2 Del Method 10/23/23 10:40 Room Air 10/23/23 08:00 10/23/23 03:00 Laboratory Results 10/23/23 06:42 10/23/23 06:42
--- NOTE | 2023-10-23 16:38 | Hospitalist Progress Note ---
Date of Service October 23, 2023 Assessment & Plan (1) Acute on chronic anemia: (2) GIB (gastrointestinal bleeding): (3) CKD (chronic kidney disease) stage 4, GFR 15-29 ml/min: (4) Symptomatic anemia: Plan Lg Cooley is a 73y/o M with significant PMHx of DM type II, diabetic neuropathy, PAD, CKD stage IV [baseline Cr ~ 3], dyslipidemia, secondary hyperparathyroidism, diabetic retinopathy with macular edema, sleep apnea [on BiPAP], nocturnal hypoxemia, history of cardiac pacemaker placement, chronic A- fib [on warfarin], chronic diabetic ulcer of R foot, HTN, venous insufficiency of both lower extremities, cerebrovascular disease, history of MRSA infection, history of right great toe amputation, orthostatic hypotension, history of paroxysmal SVT, atrophic pancreas, chronic anemia [baseline Hgb ~8] and other problems listed below who presented to the ED today for evaluation via referral from his PCP secondary to a low Hgb level on 6.8 discovered on recent outpatient labs. Acute GI Bleeding Symptomatic Acute on Chronic Anemia: History as per HPI and above. Hemoccult positive in ED. Hgb 6.8 on presentation. IV Protonix bolus/drip started in ED - continue. 2 units PRBCs ordered to be administered. 10mg Lasix x 1 following 1st unit of PRBCs. Clear liquid diet. NPO at midnight pending potential scope by GI tomorrow. Hemoccult was positive during this admission Hold warfarin and ASA. Appreciate GI input and recommendation-colonoscopy was done in 2021 and was advised to have repeat in 10 years and EGD was done in September did not show any bleeding Not to have any EGD and a colonoscopy until the condition gets worse and bleeding continues Advised to have IV iron Status post 2 unit of blood transfusion with repeat hemoglobin of 7.6 Will recheck hemoglobin in 12 hours and tomorrow morning Hemoglobin went up to 7.6 following 2 units of blood transfusion and does not have any acute/active bleeding Chronic Diabetic Ulcer of Both Feet: Follows / [facility] [Jhony Aquino DPM]. Has wound vac in place on LLE. No leukocytosis noted. Inpatient guidance adviser consulted. Multiple wounds involving Right lower leg, left heel and sacral area as in the picture Wound VAC in place Appreciate wound care input and recommendation. Management will be as per the wound care Chronic Afib: Continue metoprolol succinate. INR 2.1 today, IV vitamin K ordered. 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 Repeat PT/INR in AM. INR is 1.7 today and Coumadin is on hold INR is expected to drop as he received vitamin K INR is 1.7 today CKD Stage IV Acute Kidney Injury: Cr 4.26 on admission, appears baseline Cr ~3 per chart review. Patient follows w/ [facility]. Routine nephrology consult. Renal/bladder US pending. UA pending. Kidney function is slightly worse Awaiting nephrology evaluation and recommendation Creatinine remains stable at more than 4 DM Type II: Hold home agents, SSI regimen while inpatient. BSG checks ACHS. Hgb A1c was 6.3% on 08/23/23. Sleep Apnea: Continue BiPAP HS. Orthostatic Hypotension: Continue midodrine. Close BP monitoring on telemetry. Other Chronic Medical Conditions: Dyslipidemia, BPH --> Continue home meds for these specific conditions. DVT Prophylaxis: SCDs/TEDs for now ISO active GI bleeding, NATURAL DEVELOPER warfarin on hold. Code Status: FULL CODE PCP: Jocelyne Desai DO Disposition: Admit to PCU/Telemetry Admission and Anticipated Discharge Date Admission Date: October 21, 2023 Subjective 10/22/2023 The patient was seen and examined in telemetry unit He has been complaining of exertional dyspnea for a while and noted to have more shortness of breath yesterday after mowing low blood count Denies any blood vomiting and/or coffee-ground vomiting or any black stool Denies any chest pain, palpitation, abdominal pain, nausea and vomiting 10/23/2023 The patient was seen and examined in telemetry unit He has been feeling much better denies any significant symptoms Hemoglobin remains low at 7.6 following 2 units of blood transfusion Review of Systems Review of Systems: All systems reviewed and are unremarkable except as noted below Physical Exam Physical Exam: Lying in bed without any acute distress Constitutional: average body habitus; not ill appearing Eyes: PERRL, conjunctivae normal, anicteric sclerae ENMT: external ear and nose normal, oropharynx normal Neck: trachea midline, no thyromegaly Respiratory: no respiratory distress Auscultation: lungs clear to auscultation bilaterally Cardiovascular: Rate/Rhythm: regular rate and regular rhythm Heart Sounds: normal S1 and normal S2; no murmur Extremities: no edema Gastrointestinal (Abdomen): Inspection/Auscultation: normal bowel sounds; abdomen not distended Percussion/Palpation: abdomen soft; abdomen nontender Neurologic: normal touch/pain/proprioception and moves all extremities; no focal motor deficits Psychiatric: A+Ox3, euthymic affect Lymphatic: no cervical or axillary lymphadenopathy Results & Data Results & Data Vital Signs (Past 12 Hours) Vital Signs Temp Pulse Resp BP Pulse Ox Pulse Ox O2 Del Method 10/23/23 15:38 36.5 C 60 20 134/73 98 Room Air 10/23/23 13:20 36.5 C 67 16 132/80 98 Room Air 10/23/23 10:40 99 10/23/23 08:00 36.6 C 62 18 136/75 99 Room Air O2 Del Method 10/23/23 15:38 10/23/23 13:20 10/23/23 10:40 Room Air 10/23/23 08:00 Laboratory Results Short CBC 10/22/23 10/23/23 Range/Units 22:35 06:42 WBC 3.87 L (4.8-10.8) K/ul Hgb 7.7 L 7.6 L (14.0-18.0) g/dl Hct 25.1 L 24.2 L (42.0-52.0) % Plt Count 175 (130-400) K/uL BMP 10/23/23 06:42 Sodium 137 Potassium 4.1 Chloride 111 H Carbon Dioxide 16 L BUN 77 H Creatinine 4.31 H Glucose 87 Calcium 7.6 L Medications Administered Current Inpatient Medications Acetaminophen (Acetaminophen 325 Mg Tab) 650 mg PO Q6H PRN PRN Reason: Pain or Fever Stop: 11/20/23 19:08 Last Admin: 10/22/23 04:17 Dose: 650 mg Atorvastatin Calcium (Atorvastatin 40 Mg Tab) 40 mg PO PM [facility] Stop: 11/20/23 20:59 Last Admin: 10/22/23 21:24 Dose: 40 mg Cyclobenzaprine HCl (Cyclobenzaprine Hcl 5 Mg Tab) 5 mg PO BID PRN PRN Reason: leg spasms Stop: 11/20/23 20:59 Last Admin: 10/22/23 19:38 Dose: 5 mg Dextrose (Dextrose 50% 50 Ml Syringe) 25 - 50 ml IV UD PRN; Protocol PRN Reason: Hypoglycemia Protocol Stop: 11/20/23 19:08 Glucagon (Glucagon For Inj 1 Mg Vial) 1 mg SQ UD PRN; Protocol PRN Reason: Hypoglycemia Protocol Stop: 11/20/23 19:08 Glucose (Glucose 40% Gel 15 Gm Tube) 15 - 30 gm PO UD PRN; Protocol PRN Reason: Hypoglycemia Protocol Stop: 11/20/23 19:08 Glucose (Glucose 10 Tab/Tube) 4 - 8 tab PO UD PRN; Protocol PRN Reason: Hypoglycemia Treatment Stop: 11/20/23 19:08 Insulin Aspart (Insulin Aspart Per Unit Charge) 0 units SC ACHS [facility] Stop: 11/20/23 20:59 Last Admin: 10/23/23 12:56 Dose: Not Given Metoprolol Succinate (Metoprolol Succ 25mg Ext Rel Tab) 25 mg PO QAM [facility] Stop: 11/21/23 08:59 Last Admin: 10/23/23 08:31 Dose: 25 mg Midodrine (Midodrine Hcl 2.5 Mg Tab) 2.5 mg PO TID@0800,1200,1700 [facility] Stop: 11/21/23 07:59 Last Admin: 10/23/23 13:19 Dose: 2.5 mg Miscellaneous (Carbohydrates For Hypoglycemia ) 15 - 30 gm PO UD PRN PRN Reason: Hypoglycemia Protocol Stop: 11/20/23 19:08 Ondansetron HCl (Ondansetron Inj 2 Mg/Ml 2 Ml Vial) 4 mg IV Q6H PRN PRN Reason: Nausea Stop: 11/20/23 19:08 Oxycodone HCl (Oxycodone Hcl Ir 5 Mg Tab (Immediate Release)) 5 mg PO Q6H PRN PRN Reason: Pain Stop: 11/04/23 19:08 Last Admin: 10/23/23 04:29 Dose: 5 mg Pantoprazole Sodium (Pantoprazole 40 Mg Tab) 40 mg PO QAM [facility] Stop: 11/21/23 10:59 Last Admin: 10/23/23 09:34 Dose: 40 mg Polyethylene Glycol (Polyethylene (Miralax) 17 Gm Pack) 17 gm PO DAILY PRN PRN Reason: Constipation Stop: 11/20/23 19:08 Tamsulosin HCl (Tamsulosin Hcl 0.4 Mg Cap) 0.4 mg PO PM [facility] Stop: 11/20/23 20:59 Last Admin: 10/22/23 21:24 Dose: 0.4 mg (2) GIB (gastrointestinal bleeding) GI bleed type/associated pathology: unspecified gastrointestinal hemorrhage type Qualified Code(s): K92.2 - Gastrointestinal hemorrhage, unspecified
[2023-10-24 07:09] LABS: Basophils # (auto) 0.02 K/uL (0.00-0.20); Basophils % (auto) 0.5 %; Eosinophils % (auto) 5.2 %; Hematocrit (blood only) 22.9 % (42.0-52.0); Hemoglobin 7.3 g/dl (14.0-18.0); Immature Granulocytes # (auto) 0.01 K/uL (0.01-0.20); Immature Granulocytes % (auto) 0.3 %; Lymphocytes # (auto) 0.85 K/uL (1.20-3.40); Lymphocytes % (auto) 21.9 %; Mean Corpuscular Hemoglobin 27.5 pg (25.0-34.0); Mean Corpuscular Hgb Conc 31.9 g/dL (32.0-36.0); Mean Corpuscular Volume 86.4 fL (80.0-100.0); Mean Platelet Volume 10.6 fL (9.4-12.4); Monocytes # (auto) 0.47 K/uL (0.11-0.59); Monocytes % (auto) 12.1 %; Neutrophils # (auto) 2.33 K/uL (1.40-6.50); Platelet Count 162 K/uL (130-400); RDW Coefficient of Variation 17.4 % (11.5-14.5); RDW Standard Deviation 55.5 fL (36.4-46.3); Red Blood Count 2.65 M/uL (4.70-6.10); White Blood Count 3.88 K/ul (4.8-10.8)
[2023-10-24 07:33] LABS: BUN Creatinine Ratio 17.4 (10-20); Calcium 7.6 mg/dl (8.6-10.3); Creatinine Clr Calc Pharmacy 17.8 ml/min; Est GFR (African American) 14.1 ml/min; Est GFR (Non-African American) 12.1 ml/min; Potassium 4.2 mmol/L (3.5-5.1)
[2023-10-24 07:34] LABS: INR 1.2 (0.9-1.1); Prothrombin Time 12.9 Seconds (9.0-12.0)
[2023-10-24 07:35] LABS: Acanthocytes 1+; Echinocytes 1+; Ovalocytes 1+; Polychromasia 2+
[2023-10-24 11:11] VITALS: BP 126/69; RESP 21; TEMP 97.9; O2SAT 100
--- NOTE | 2023-10-24 11:14 | Hospitalist Progress Note ---
Date of Service October 24, 2023 Assessment & Plan (1) Acute on chronic anemia: (2) GIB (gastrointestinal bleeding): (3) CKD (chronic kidney disease) stage 4, GFR 15-29 ml/min: (4) Symptomatic anemia: Plan Lg Cooley is a 73y/o M with significant PMHx of DM type II, diabetic neuropathy, PAD, CKD stage IV [baseline Cr ~ 3], dyslipidemia, secondary hyperparathyroidism, diabetic retinopathy with macular edema, sleep apnea [on BiPAP], nocturnal hypoxemia, history of cardiac pacemaker placement, chronic A- fib [on warfarin], chronic diabetic ulcer of R foot, HTN, venous insufficiency of both lower extremities, cerebrovascular disease, history of MRSA infection, history of right great toe amputation, orthostatic hypotension, history of paroxysmal SVT, atrophic pancreas, chronic anemia [baseline Hgb ~8] and other problems listed below who presented to the ED today for evaluation via referral from his PCP secondary to a low Hgb level on 6.8 discovered on recent outpatient labs. Acute GI Bleeding Symptomatic Acute on Chronic Anemia: History as per HPI and above. Hemoccult positive in ED. Hgb 6.8 on presentation. IV Protonix bolus/drip started in ED - continue. 2 units PRBCs ordered to be administered. 10mg Lasix x 1 following 1st unit of PRBCs. Clear liquid diet. NPO at midnight pending potential scope by GI tomorrow. Hemoccult was positive during this admission Hold warfarin and ASA. Appreciate GI input and recommendation-colonoscopy was done in 2021 and was advised to have repeat in 10 years and EGD was done in September did not show any bleeding Not to have any EGD and a colonoscopy until the condition gets worse and bleeding continues Advised to have IV iron Status post 2 unit of blood transfusion with repeat hemoglobin of 7.6 Will recheck hemoglobin in 12 hours and tomorrow morning Hemoglobin went up to 7.6 following 2 units of blood transfusion and does not have any acute/active bleeding Hemoglobin remains stable at 7.3 without any evidence of further GI bleed He remains stable and awaiting physical therapy evaluation Chronic Diabetic Ulcer of Both Feet: Follows / [facility] [Jhony Aquino DPM]. Has wound vac in place on LLE. No leukocytosis noted. Inpatient application trainer consulted. Multiple wounds involving Right lower leg, left heel and sacral area as in the picture Wound VAC in place Appreciate wound care input and recommendation. Management will be as per the wound care Chronic Afib: Continue metoprolol succinate. INR 2.1 today, IV vitamin K ordered. 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 Repeat PT/INR in AM. INR is 1.7 today and Coumadin is on hold INR is expected to drop as he received vitamin K INR is 1.7 today INR is down to 1.2 today Will restart Coumadin after discussion with GI CKD Stage IV Acute Kidney Injury: Cr 4.26 on admission, appears baseline Cr ~3 per chart review. Patient follows w/ [facility]. Routine nephrology consult. Renal/bladder US pending. UA pending. Kidney function is slightly worse Awaiting nephrology evaluation and recommendation Creatinine remains stable at more than 4 DM Type II: Hold home agents, SSI regimen while inpatient. BSG checks ACHS. Hgb A1c was 6.3% on 08/23/23. Sleep Apnea: Continue BiPAP HS. Orthostatic Hypotension: Continue midodrine. Close BP monitoring on telemetry. Other Chronic Medical Conditions: Dyslipidemia, BPH --> Continue home meds for these specific conditions. 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 Code Status: FULL CODE PCP: Jocelyne Desai DO Disposition: Admit to PCU/Telemetry Admission and Anticipated Discharge Date Admission Date: October 21, 2023 Subjective 10/22/2023 The patient was seen and examined in telemetry unit He has been complaining of exertional dyspnea for a while and noted to have more shortness of breath yesterday after mowing low blood count Denies any blood vomiting and/or coffee-ground vomiting or any black stool Denies any chest pain, palpitation, abdominal pain, nausea and vomiting 10/23/2023 The patient was seen and examined in telemetry unit He has been feeling much better denies any significant symptoms Hemoglobin remains low at 7.6 following 2 units of blood transfusion 10/24/2023 The patient was seen and examined in telemetry unit He has been feeling better but remains weak and lethargic Creatinine has gone up little bit but has been making out urine okay Wound care is being taking care of Will get PT and OT evaluation and likely discharge tomorrow with Review of Systems Review of Systems: All systems reviewed and are unremarkable except as noted below Physical Exam Physical Exam: Lying in bed without any acute distress Constitutional: average body habitus; not ill appearing Eyes: PERRL, conjunctivae normal, anicteric sclerae ENMT: external ear and nose normal, oropharynx normal Neck: trachea midline, no thyromegaly Respiratory: no respiratory distress Auscultation: lungs clear to auscultation bilaterally Cardiovascular: Rate/Rhythm: regular rate and regular rhythm Heart Sounds: normal S1 and normal S2; no murmur Extremities: no edema Gastrointestinal (Abdomen): Inspection/Auscultation: normal bowel sounds; abdomen not distended Percussion/Palpation: abdomen soft; abdomen nontender Neurologic: normal touch/pain/proprioception and moves all extremities; no focal motor deficits Psychiatric: A+Ox3, euthymic affect Lymphatic: no cervical or axillary lymphadenopathy Results & Data Results & Data Vital Signs (Past 12 Hours) Vital Signs Temp Pulse Pulse Pulse Resp BP Pulse Ox 10/24/23 11:09 36.6 C 63 21 126/69 100 10/24/23 10:02 36.5 C 80 65 18 127/73 97 10/24/23 07:36 36.5 C 65 18 127/73 97 10/24/23 07:09 60 10/24/23 03:33 36.7 C 64 16 113/64 95 10/23/23 23:30 36.7 C 62 18 120/71 98 O2 Del Method 10/24/23 11:09 Room Air 10/24/23 10:02 10/24/23 07:36 Room Air 10/24/23 07:09 10/24/23 03:33 Room Air 10/23/23 23:30 Room Air Laboratory Results Short CBC 10/24/23 Range/Units 06:23 WBC 3.88 L (4.8-10.8) K/ul Hgb 7.3 L (14.0-18.0) g/dl Hct 22.9 L (42.0-52.0) % Plt Count 162 (130-400) K/uL BMP 10/24/23 06:23 Sodium 139 Potassium 4.2 Chloride 111 H Carbon Dioxide 19 L BUN 79 H Creatinine 4.53 H* Glucose 83 Calcium 7.6 L Medications Administered Current Inpatient Medications Acetaminophen (Acetaminophen 325 Mg Tab) 650 mg PO Q6H PRN PRN Reason: Pain or Fever Stop: 11/20/23 19:08 Last Admin: 10/22/23 04:17 Dose: 650 mg Atorvastatin Calcium (Atorvastatin 40 Mg Tab) 40 mg PO PM [facility] Stop: 11/20/23 20:59 Last Admin: 10/23/23 20:15 Dose: 40 mg Cyclobenzaprine HCl (Cyclobenzaprine Hcl 5 Mg Tab) 5 mg PO BID PRN PRN Reason: leg spasms Stop: 11/20/23 20:59 Last Admin: 10/22/23 19:38 Dose: 5 mg Dextrose (Dextrose 50% 50 Ml Syringe) 25 - 50 ml IV UD PRN; Protocol PRN Reason: Hypoglycemia Protocol Stop: 11/20/23 19:08 Glucagon (Glucagon For Inj 1 Mg Vial) 1 mg SQ UD PRN; Protocol PRN Reason: Hypoglycemia Protocol Stop: 11/20/23 19:08 Glucose (Glucose 40% Gel 15 Gm Tube) 15 - 30 gm PO UD PRN; Protocol PRN Reason: Hypoglycemia Protocol Stop: 11/20/23 19:08 Glucose (Glucose 10 Tab/Tube) 4 - 8 tab PO UD PRN; Protocol PRN Reason: Hypoglycemia Treatment Stop: 11/20/23 19:08 Insulin Aspart (Insulin Aspart Per Unit Charge) 0 units SC ACHS [facility] Stop: 11/20/23 20:59 Last Admin: 10/24/23 09:04 Dose: Not Given Metoprolol Succinate (Metoprolol Succ 25mg Ext Rel Tab) 25 mg PO QAM [facility] Stop: 11/21/23 08:59 Last Admin: 10/24/23 09:05 Dose: 25 mg Midodrine (Midodrine Hcl 2.5 Mg Tab) 2.5 mg PO TID@0800,1200,1700 [facility] Stop: 11/21/23 07:59 Last Admin: 10/24/23 09:06 Dose: 2.5 mg Miscellaneous (Carbohydrates For Hypoglycemia ) 15 - 30 gm PO UD PRN PRN Reason: Hypoglycemia Protocol Stop: 11/20/23 19:08 Ondansetron HCl (Ondansetron Inj 2 Mg/Ml 2 Ml Vial) 4 mg IV Q6H PRN PRN Reason: Nausea Stop: 11/20/23 19:08 Oxycodone HCl (Oxycodone Hcl Ir 5 Mg Tab (Immediate Release)) 5 mg PO Q6H PRN PRN Reason: Pain Stop: 11/04/23 19:08 Last Admin: 10/23/23 19:38 Dose: 5 mg Pantoprazole Sodium (Pantoprazole 40 Mg Tab) 40 mg PO QAM [facility] Stop: 11/21/23 10:59 Last Admin: 10/24/23 09:06 Dose: 40 mg Polyethylene Glycol (Polyethylene (Miralax) 17 Gm Pack) 17 gm PO DAILY PRN PRN Reason: Constipation Stop: 11/20/23 19:08 Tamsulosin HCl (Tamsulosin Hcl 0.4 Mg Cap) 0.4 mg PO PM [facility] Stop: 11/20/23 20:59 Last Admin: 10/23/23 20:15 Dose: 0.4 mg (2) GIB (gastrointestinal bleeding) GI bleed type/associated pathology: unspecified gastrointestinal hemorrhage type Qualified Code(s): K92.2 - Gastrointestinal hemorrhage, unspecified
--- NOTE | 2023-10-24 13:17 | Nephrology Progress Note ---
Date of Service October 24, 2023 Assessment & Plan (1) JORGE (acute kidney injury): Plan: Creat 4.3 on admission and plateau'd / slightly worse to 4.5 today ; 2 view CXR on 10/21 shows no overload or acute CP process will follow renal labs. Slight worsening could be related with volume issue, worsened anemia or just progression of his CKD >> his renal function has declined considerably since early this year; has rapidly progressive CKD. >will hold diuretics again today -Daily renal panel From nephro standpoint if no active IP issues, he could be d/c w/ close OP nephro f/u -bmp, cbc at hospital d/c visit w/ PCP -I will refer pt for ESRD Options education to learn about different ways to do dialysis, pros/cons of transplant and of conservative care -he needs hospital d/c appt w/ me in 3-4 wks w/ BMP, phos, albumin, hgb, t sat -d/c on 1.5L fluid limit, on 20 mg torsemide MWF, on K 20 mEq on days he takes torsemide -would NOT d/c on midodrine -will refer to anemia clinic as well for mgt of CKD anemia but needs still to continue GI w/u -will need OP GI f/u for VCE planning I shared about plans about next steps marshal from nephro OP standpoint w/ Dr Almendarez via [employer]; we are in agreement. (2) CKD (chronic kidney disease) stage 4, GFR 15-29 ml/min: Plan: He has baseline CKD 4 and almost Stage 5 lately from classic Diabetic nephropathy/HTN/Vascular Dz with proteinuria. Poor renal prognosis and most likely will need Dialysis within next few months (3) Acute GI bleeding: Plan: He has Sig baseline Anemia from CKD, recent infections. possibly has Some GI bleed on top of that. for GI OP f/u Now after PRBC hgb is up to 7.6 yesterday and today 7.3. -Daily CBC -t sat ordered for tomorrow AM > will give 200 mg venofer today since this is almost certainly Fe def anemia -He needs CHARLES if no contraindication but would replete Fe first Admission and Anticipated Discharge Date Admission Date: October 21, 2023 Subjective no interval events clniically. walked halls w/ PT; denies edema; no sx of active GI bleed Review of Systems 2 Review of Systems: All systems reviewed & are unremarkable except as noted in Subjective Physical Exam 2 Constitutional: well developed, well nourished, + frail appearing and cooperative; no acute distress ENMT: Mouth: + dry oral mucous membranes Respiratory: normal respiratory effort Auscultation: + diminished lung sounds Cardiovascular: Rate/Rhythm: regular rate and regular rhythm Extremities: + edema (trace BLE) Gastrointestinal (Abdomen): Inspection/Auscultation: normal bowel sounds P ercussion/Palpation: abdomen soft; abdomen nontender Musculoskeletal: Extremities: strength 5/5 throughout Psychiatric: Orientation: alert and oriented x 3 Results & Data Vital Signs (Past 12 Hours) Vital Signs Temp Pulse Pulse Pulse Resp BP Pulse Ox 10/24/23 11:09 36.6 C 63 21 126/69 100 10/24/23 10:02 36.5 C 80 65 18 127/73 97 10/24/23 07:36 36.5 C 65 18 127/73 97 10/24/23 07:09 60 10/24/23 03:33 36.7 C 64 16 113/64 95 O2 Del Method 10/24/23 11:09 Room Air 10/24/23 10:02 10/24/23 07:36 Room Air 10/24/23 07:09 10/24/23 03:33 Room Air Laboratory Results 10/24/23 06:23 10/24/23 06:23
[2023-10-24 14:21] VITALS: PULSE 60
[2023-10-24] MEDS: IRON SUCROSE 200 MG in 0.9 % SODIUM CHLORIDE 100 ML IV ONE (14:29)
--- NOTE | 2023-10-25 07:41 | Discharge Summary ---
Date of Service October 25, 2023 Admission HPI Per Admitting Provider Lg Cooley is a 73y/o M with significant PMHx of DM type II, diabetic neuropathy, PAD, CKD stage IV [baseline Cr ~ 3], dyslipidemia, secondary hyperparathyroidism, diabetic retinopathy with macular edema, sleep apnea [on BiPAP], nocturnal hypoxemia, history of cardiac pacemaker placement, chronic A- fib [on warfarin], chronic diabetic ulcer of R foot, HTN, venous insufficiency of both lower extremities, cerebrovascular disease, history of MRSA infection, history of right great toe amputation, orthostatic hypotension, history of paroxysmal SVT, atrophic pancreas, chronic anemia [baseline Hgb ~8] and other problems listed below who presented to the ED today for evaluation via referral from his PCP secondary to a low Hgb level on 6.8 discovered on recent outpatient labs. History obtained from patient and associated chart review. Patient reports he has been experiencing SOB "for a while," but has gotten significantly worse over the past few days. Has not noticed any black stools or BRBPR. No fever, ch ills or body aches. Denies any lightheadedness or dizziness. He does not wear supplemental O2 at baseline. Had an EGD done on 09/14/23 that was normal. Last colonoscopy was done 09/08/21 that was normal as well. No known history of GI bleeding per patient. IV Protonix bolus/drip started in ED. 2 units PRBCs ordered to be administered. Admission Exam Per Admitting Provider Vitals signs as noted above General Appearance: Thin, frail, elderly, no apparent distress Head: normocephalic, Atraumatic Eyes: normal inspection, EOMI Neck: supple, Trachea midline Respiratory/Chest: Normal breath sounds, CTA, No accessory muscle use Cardiovascular: S1, S2, +murmur Abdomen/GI:Soft, Non tender, Bowel sounds present Extremities/Musculoskeletal:normal inspection, 2+ LE edema, + left lower extremity wound VAC Neurologic/Psych:AAOX3, grossly no focal neurological deficits Skin: normal color, warm Principal Diagnosis Acute GI bleeding , status post 2 unit of blood transfusion, acute on chronic anemia complicated by CKD Discharge Exam Lying in bed without any acute distress Constitutional average body habitus; not ill appearing Eyes PERRL, conjunctivae normal, anicteric sclerae ENMT external ear and nose normal, oropharynx normal Neck trachea midline, no thyromegaly Respiratory no respiratory distress Auscultation: lungs clear to auscultation bilaterally Cardiovascular Rate/Rhythm: regular rate and regular rhythm Heart Sounds: normal S1 and normal S2; no murmur Extremities: no edema Gastrointestinal (Abdomen) Inspection/Auscultation: normal bowel sounds; abdomen not distended Percussion/Palpation: abdomen soft; abdomen nontender Neurologic normal touch/pain/proprioception and moves all extremities; no focal motor deficits Psychiatric A+Ox3, euthymic affect Lymphatic no cervical or axillary lymphadenopathy Discharge Data Allergies Allergy/AdvReac Type Severity Reaction Status Date / Time No Known Allergies Allergy Verified 10/21/23 17:49 Consultations 10/21/23 17:16 ED Decision to Admit Stat 10/21/23 19:09 Consult Gastroenterology Routine Consult Nephrology Routine Ordered Studies 10/21/23 19:09 US Renal Bladder [US renal/blad retro comp] Routine Hospital Course (1) Acute on chronic anemia: (2) GIB (gastrointestinal bleeding): (3) CKD (chronic kidney disease) stage 4, GFR 15-29 ml/min: (4) Symptomatic anemia: Caroline Cooley is a 73y/o M with significant PMHx of DM type II, diabetic neuropathy, PAD, CKD stage IV [baseline Cr ~ 3], dyslipidemia, secondary hyperparathyroidism, diabetic retinopathy with macular edema, sleep apnea [on BiPAP], nocturnal hypoxemia, history of cardiac pacemaker placement, chronic A- fib [on warfarin], chronic diabetic ulcer of R foot, HTN, venous insufficiency of both lower extremities, cerebrovascular disease, history of MRSA infection, history of right great toe amputation, orthostatic hypotension, history of paroxysmal SVT, atrophic pancreas, chronic anemia [baseline Hgb ~8] and other problems listed below who presented to the ED today for evaluation via referral from his PCP secondary to a low Hgb level on 6.8 discovered on recent outpatient labs. Acute GI Bleeding Symptomatic Acute on Chronic Anemia: History as per HPI and above. Hemoccult positive in ED. Hgb 6.8 on presentation. IV Protonix bolus/drip started in ED - continue. 2 units PRBCs ordered to be administered. 10mg Lasix x 1 following 1st unit of PRBCs. Clear liquid diet. NPO at midnight pending potential scope by GI tomorrow. Hemoccult was positive during this admission Hold warfarin and ASA. Appreciate GI input and recommendation-colonoscopy was done in 2021 and was advised to have repeat in 10 years and EGD was done in September did not show any bleeding Not to have any EGD and a colonoscopy until the condition gets worse and bleeding continues Advised to have IV iron Status post 2 unit of blood transfusion with repeat hemoglobin of 7.6 Will recheck hemoglobin in 12 hours and tomorrow morning Hemoglobin went up to 7.6 following 2 units of blood transfusion and does not have any acute/active bleeding Hemoglobin remains stable at 7.3 without any evidence of further GI bleed He remains stable and awaiting physical therapy evaluation Chronic Diabetic Ulcer of Both Feet: Follows / [facility] [Jhony Aquino DPM]. Has wound vac in place on LLE. No leukocytosis noted. Inpatient fiscal officer consulted. Multiple wounds involving Right lower leg, left heel and sacral area as in the picture Wound VAC in place Appreciate wound care input and recommendation. Management will be as per the wound care Chronic Afib: Continue metoprolol succinate. INR 2.1 today, IV vitamin K ordered. [employer] warfarin and ASA on hold 2/2 active GI bleeding. Repeat PT/INR in AM. INR is 1.7 today and Coumadin is on hold INR is expected to drop as he received vitamin K INR is 1.7 today INR is down to 1.2 today Will restart Coumadin after discussion with GI CKD Stage IV Acute Kidney Injury: Cr 4.26 on admission, appears baseline Cr ~3 per chart review. Patient follows / [facility]. Routine nephrology consult. Renal/bladder US pending. UA pending. Kidney function is slightly worse Awaiting nephrology evaluation and recommendation Creatinine remains stable at more than 4 DM Type II: Hold home agents, SSI regimen while inpatient. BSG checks ACHS. Hgb A1c was 6.3% on 08/23/23. Sleep Apnea: Continue BiPAP HS. Orthostatic Hypotension: Continue midodrine. Close BP monitoring on telemetry. Other Chronic Medical Conditions: Dyslipidemia, BPH --> Continue home meds for these specific conditions. DVT Prophylaxis: SCDs/TEDs for now ISO active GI bleeding, [employer]OD [employer]REATING [employer]OR warfarin on hold. Code Status: FULL CODE PCP: Jocelyne Desai DO Disposition: Admit to PCU/Telemetry Total Time Total Time Spent Total Time Spent (In Minutes): 35 minutes Discharge Plan Discharge Items Patient Disposition: Home - Home Health Services Reason For Visit: GI BLEED Discharge Diagnosis: Acute GI bleeding , status post 2 unit of blood transfusion, acute on chronic anemia complicated by CKD Condition on Discharge: Fair Activity: Resume your previous activity Non-emergency contact: Primary Care Provider Call non-emergency contact if: you have any medication questions and your symptoms worsen Follow-up/Referrals: [facility] [Other] - 10/25/23 8:20 am Jocelyne Desai DO [Primary Care Provider] - (Date & Time 11/01/2023 11:10 AM Provider Jocelyne Desai DO Department Family Medicine [facility] ) Diet: Carb Consistent or DM2 Addtl Attending Provider Instructions: Please take precautions to avoid falls Take your wound care as advised by the wound care nurse Please take your medications as advised Keep appointments with the healthcare providers Pending Studies at Discharge: No Stand-Alone Forms: My [employer], Smoking Cessation Medications and DC Order Prescriptions: Continued magnesium oxide 400 mg magnesium capsule 400 mg PO QAM Flintstones Complete (iron) Tablet,Chewable 1 tab PO PM Qty: 0 atorvastatin 40 mg Tablet 40 mg PO PM Qty: 0 cholecalciferol (vitamin D3) [Vitamin D3] 1,000 unit Capsule 2,000 unit PO PM tamsulosin 0.4 mg Capsule 0.4 mg PO PM cyanocobalamin (vitamin B-12) 1,000 mcg Tablet 1,000 mcg PO PM acetaminophen 500 mg Tablet 1,000 mg PO Q6H PRN (Reason: Pain) aspirin 81 mg Tablet 81 mg PO DAILY warfarin 3 mg Tablet See Rx Instructions .ROUTE .COMPLEX Rx Instructions: Monday patient takes 3mg and 1.5mg all other days metoprolol succinate 25 mg Tablet Extended Release 24 Hr 25 mg PO QAM Qty: 30 0RF Advanced Probiotic 625 mg (10 billion cell) Capsule 1 cap PO DAILY Qty: 30 0RF cyclobenzaprine 10 mg tablet 10 mg PO Q8H PRN (Reason: Muscle Spasms) oxycodone 5 mg tablet 5 mg PO Q6H PRN (Reason: Pain) Changed torsemide 20 mg tablet 20 mg PO UD Qty: 30 0RF Rx Instructions: Monday,Monday and Monday potassium chloride 20 mEq tablet,ER particles/crystals 20 meq PO UD Qty: 30 0RF Rx Instructions: Monday, and Monday Discontinued midodrine 2.5 mg Tablet 2.5 mg PO TID@0800,1200,1700 Qty: 90 0RF Discharge Orders: Discharge Order (Routine); Ordered 10/24/23 Ordered By: Rex Almendarez Admission Data Admit Date/Time: 10/21/23 17:34 Attending Provider: Rex Almendarez Admit Provider: Erlin Chow Primary Care Provider: Jocelyne Desai Other Providers: Erlin Chow; Camila Booker; George Flores; Connie Lehman; Zahra Whiteside; Chante Montano; Catherine Cortez; Annika Moore; Shan Lemus; Rustam Roach; Robin Serrano; Freddy Fu; Adrianna Alonzo; Erika Alfredo; Janice Shoemaker; Moon Avila; Amarilys Jaquez; Enoc Medina; Kevyn Jo; Sulaiman Crockett; Cara Chew; Raiza Wu Jr; Mario Brand.; Jonathan Verdugo; Michael Mckeon; Alec Gramajo; Lucy Ivory; Femi Uribe I; Nino Jalloh Other Interventions: Discharge Summary Assessment (RN) Last Done: 10/24/23 10:02
== END 2023-10-24 17:29 | disposition home health service (06) | DRG 378 ==
LOC: ED 16:24 → 2E 17:34 → SUATTDRO 17:34 → 2E 18:34

== ENCOUNTER 2024-01-29 10:53 | Inpatient (IN) ==
[2024-01-29] MEDS ORDERED: SODIUM CHLORIDE 0.9% 100 ML IV PRN ×2 (11:45→12:48)
[2024-01-29] MEDS ORDERED: SODIUM CHLORIDE 0.9% 50 ML IV PRN ×2 (11:45→12:48)
--- NOTE | 2024-01-29 11:55 | Emergency Department Note ---
Impression & Plan GI bleed, CHF (congestive heart failure), SOB (shortness of breath), Anemia, CRF (chronic renal failure), Heme positive stool, Hypocalcemia ED Provider Note NAME: RANI CHRISTIAN AGE: 73 SEX: M : 1950 ARRIVES VIA: Ambulance INFORMANT: [Patient] ED PROVIDER(S): [River Humphries MD] CHIEF COMPLAINT: Shortness of breath HISTORY OF PRESENT ILLNESS: The patient is a 73-year-old male who has been short of breath for about a week. His symptoms have been worsening and are worse with any exertion. He is on warfarin. He received an iron transfusion last week. The patient has received previous packed red blood cell transfusions for anemia. There has been no cough or congestion. He has noticed some darker stool. PMHx/PSHx/Social Hx: See Below PHYSICAL EXAM: GENERAL: Patient is in no acute distress. HEENT: No acute trauma, normocephalic atraumatic, mucous membranes moist, no nasal congestion. NECK: No stridor, no adenopathy, no meningismus, trachea is midline. LUNGS: He does have some crackles at both bases, no wheezing or respiratory distress. HEART: Without murmurs gallops or rubs, regular rate and rhythm. ABDOMEN: Soft, nontender, no peritonitis. EXTREMITIES: No cyanosis, full range of motion of all the joints without pain or difficulty. He does have moderate bilateral pedal edema with some chronic skin wounds and skin change. NEUROLOGIC: Oriented x 3, no acute motor or sensory deficits, no focal weakness. SKIN: No jaundice, no diaphoresis. Pale. Rectal: Dark black stool, heme positive. DIFFERENTIAL DIAGNOSIS: Upper and lower GI bleeding, anemia, heart failure, electrolyte imbalance, CA, among others. EMERGENCY DEPARTMENT PROCEDURES: MEDICAL DECISION MAKING: There is no leukocytosis. The patient is quite anemic with a hemoglobin of 6.4. There was a normal platelet count. INR was above the therapeutic window at 8.4. Creatinine was quite high at 4.98, the patient does have a history of a significantly elevated creatinine value although, today's value is above his typical baseline. BUN was elevated consistent with potential upper GI bleeding. Calcium is low at 6.9. ECG showed a ventricular pacemaker, no ischemia. Cardiac enzyme testing x 1 was not consistent with acute cardiac injury. There was no concerning liver enzyme elevation. Patient appeared to be in a euthyroid state. Chest x-ray does show heart failure. On exam, the patient was quite pale, his stool was black in color and heme positive. Patient is suffering from a GI bleed. He is short of breath secondary to his anemia and CHF. He will require a hospital stay. The patient was given IV vitamin K. I did also administer IV Kcentra to help reverse his high INR. He was given IV Protonix. He was given IV Pepcid. He was given IV calcium gluconate. I did consent the patient for a packed red blood cell transfusion. 1 unit was ordered to be given slowly while here in the ED. Patient is aware of his findings, he understands the need for a hospital stay and the need for a packed red blood cell transfusion. I did speak with case management, the on-call hospitalist was consulted. Prior/Outside records/notes reviewed: Today's EMS notes describing his presentation and transport at this hospital. ECG per my interpretation: Indication was shortness of breath. The ECG shows a ventricular pacemaker with a rate of 75. There is no ST elevation, no PVCs. The QTc is 585. Continuous Cardiac Monitoring per my interpretation: An order was placed for continuous cardiac monitoring. The monitor shows a rate of 61 with ventricular pacing. Imaging/x-ray results per my interpretation: Chest x-ray does show evidence for heart failure. No pneumothorax. Chronic Medical/Social conditions affecting care: Advanced age, warfarin use. Care/Management discussed with: Case management, the on-call hospitalist. I did discuss the case with Dr. Land of coagulation. Level of care consideration(s): After review of the information above and other included data: --I believe the patient requires escalation of care to admission Critical Care Note: I have personally spent 65 minutes of critical care time in the direct management of this patient. This includes bedside care, interpretation of diagnostic studies, and testing, discussion with consultants, patient, and family members, and other required patient management activities. This 65 minutes is in excess of all separately billable procedures. DISPOSITION: Admission Past Med/Surg History Problem List (Updated 01/29/24 @ 15:42 by River Humphries MD) Hypocalcemia (Acute) Heme positive stool (Acute) CRF (chronic renal failure) (Acute) Anemia (Acute) SOB (shortness of breath) (Acute) CHF (congestive heart failure) (Acute) GI bleed (Acute) Hypocalcemia Supratherapeutic INR CKD (chronic kidney disease) stage 4, GFR 15-29 ml/min Symptomatic anemia (Acute) Dyspnea (Acute) Chronic anticoagulation (Acute) Acute GI bleeding (Acute) GIB (gastrointestinal bleeding) Acute on chronic anemia Bacterial infection due to Pseudomonas Acute UTI (Acute) Leg pain, right Morbid obesity Cellulitis of leg, right (Acute) Pacemaker battery depletion Hx MRSA infection Cellulitis of right lower extremity Acute dyspnea (Acute) Acute exacerbation of CHF (congestive heart failure) (Acute) Non-ST elevation CA (NSTEMI) (Acute) Acute kidney injury superimposed on chronic kidney disease (Acute) Chronic osteomyelitis Traumatic open wound of lower leg Infected wound Status post partial amputation of foot Abdominal pannus Venous stasis ulcer of right lower leg with edema of right lower leg Chronic venous insufficiency of lower extremity (Chronic) Diabetic ulcer of toe (Acute) Diabetic ulcer of right foot (Acute) Spinal stenosis (Chronic) CHF (congestive heart failure) (Chronic) Diabetes type 2 with atherosclerosis of arteries of extremities Right hip pain Unsteady gait Personal history of diabetic foot ulcer Diabetic peripheral neuropathy associated with type 2 diabetes mellitus Diabetes type 2, controlled NIDDM Atrial fibrillation (Chronic) Peripheral arterial disease (Chronic) 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, 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, Right great toe amputation 07/2020 with revision 08/2020 Hypertension (Chronic) Chronic anemia CVA (cerebral vascular accident) 01/2018; residual right sided weakness Mixed sleep apnea No device (previous BIPAP) CKD (chronic kidney disease), stage III Dyslipidemia Pacemaker (Chronic) Left, normal single chamber pacemaker function with stable pacing and sensing thresholds per pacer check 12/08/20 [facility] Tachy-geronimo syndrome Medical History MRSA infection Hyperlipemia Essential hypertension 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 kidney disease Degenerative cervical spinal stenosis Degenerative lumbar spinal stenosis Proliferative diabetic retinopathy Venous insufficiency of both lower extremities Erectile dysfunction Nonalcoholic 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 (PLATT) intermediate current use of 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 Hyperparathyroidism, secondary renal Esophageal obstruction Complex sleep apnea syndrome Vitamin B12 deficiency Persistent proteinuria Paroxysmal SVT (supraventricular tachycardia) Myocardial Infarction 2018 > medically managed CHF (congestive heart failure) Acute renal failure superimposed on stage 3 chronic kidney disease 08/2020 hospitalization, UTI and osteomyelitis, necrotizing fasciitis Depression Sepsis 2013 Surgical History History of amputation of lesser toe of right foot Hx of angioplasty Amputation toe Right great toe amputation (08/12/20): MAC at [facility] History of esophagogastroduodenoscopy (EGD) History of vascular surgery Left popliteal, 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) Right great toe I&D, revision amputation (08/21/20): MAC at [facility] History of hand surgery Tendon transfer Gastric bypass status for obesity Family History Brother Diabetes Mother Diabetes Father Diabetes Other Cancer Hypertension Social History Smoking Status: Former smoker Tobacco Type: Cigarettes Cigarettes Per Day: quit a long time ago; Second Hand Exposure: No; Do You Dip or Chew Tobacco: No; Hx Alcohol Use: Yes Alcohol type: beer and wine Alcohol Intake Frequency: Monthly or Less Hx Substance Use: No Preferred Language: Arabic 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 Ability: Effective Visual Impairment: No Limitations Hearing Ability: Normal Commercial Intelligence 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 current occupational status: retired How many Children do You have: 2 Feels Safe at Home: Yes Diet Comment: Educated to increase protein, vitamin c, d and zinc Assistive Devices: Cane, Walker and Other Allergies Allergies Allergy/AdvReac Type Severity Reaction Status Date / Time No Known Allergies Allergy Verified 10/21/23 17:49 Home Meds Home Medications Medication Instructions Recorded Confirmed pediatric [id number] 1 tab PO PM ##0 04/11/13 01/29/24 (Flintstones Complete (iron) chewable tablet) atorvastatin 40 mg tablet 40 mg PO PM #0 tabs 01/08/17 01/29/24 cholecalciferol (vitamin D3) 25 2,000 unit PO PM 10/18/17 01/29/24 mcg (1,000 unit) capsule (Vitamin D3) cyanocobalamin (vitamin B-12) 1,000 mcg PO PM 05/06/19 01/29/24 1,000 mcg tablet tamsulosin 0.4 mg capsule 0.4 mg PO PM 05/06/19 01/29/24 magnesium oxide 400 mg PO QAM 09/26/19 01/29/24 acetaminophen 500 mg tablet 1,000 mg PO Q6H PRN Pain 12/17/20 01/29/24 aspirin 81 mg tablet 81 mg PO DAILY 12/21/20 01/29/24 warfarin 3 mg tablet See Rx Instructions .Route .COMPLEX 10/07/22 01/29/24 cyclobenzaprine 10 mg tablet 10 mg PO Q8H PRN Muscle Spasms 10/21/23 01/29/24 oxycodone 5 mg tablet 5 mg PO Q6H PRN Pain 10/21/23 01/29/24 Previous Rx's Medication Instructions Recorded metoprolol succinate 25 mg 25 mg PO QAM #30 tabs 10/16/22 tablet,extended release 24 hr L.acidop,casei,lactis,rham-B.lact,scot 1 cap PO DAILY #30 caps 08/07/23 625 mg (10 billion cell) capsule (Advanced Probiotic) potassium chloride 20 mEq 20 meq PO UD #30 tabs 10/24/23 tablet,extended release(part/cryst) torsemide 20 mg tablet 20 mg PO UD #30 tabs 10/24/23 Results & Data (ED) Vital Signs Vital Signs - 24 hr 01/29/24 10:55 01/29/24 11:00 01/29/24 11:04 Temperature 36.6 C Temperature Source Oral Pulse Rate 64 86 Pulse Rate [Apical] Pulse Rate from SpO2 Sensor Pulse Rhythm Regular Pulse Strength Normal Pulse Strength [Apical] Respiratory Rate 19 Respiratory Effort / Characteristics SOB on Exertion Respiratory Depth Normal Respiratory Pattern Blood Pressure 127/85 127/85 Blood Pressure [Right Arm] Blood Pressure Mean 99 110 Blood Pressure Mean [Right Arm] Blood Pressure Position Pulse Oximetry 100 Oxygen Delivery Method Room Air Sepsis Recent Fever Within 48 Hours No Sepsis New/Unexplained Change in Mental Status N/A Sepsis Action Taken by Nursing No Action Required 01/29/24 11:06 01/29/24 11:11 01/29/24 11:11 Temperature Temperature Source Pulse Rate 68 Pulse Rate [Apical] Pulse Rate from SpO2 Sensor 68 Pulse Rhythm Pulse Strength Pulse Strength [Apical] Respiratory Rate 20 Respiratory Effort / Characteristics Respiratory Depth Respiratory Pattern Blood Pressure Blood Pressure [Right Arm] Blood Pressure Mean Blood Pressure Mean [Right Arm] Blood Pressure Position Pulse Oximetry 100 100 Oxygen Delivery Method Room Air Room Air Sepsis Recent Fever Within 48 Hours Sepsis New/Unexplained Change in Mental Status Sepsis Action Taken by Nursing 01/29/24 11:13 01/29/24 12:06 01/29/24 13:14 Temperature 36.8 C Temperature Source Oral Pulse Rate 60 Pulse Rate [Apical] 61 Pulse Rate from SpO2 Sensor Pulse Rhythm Pulse Strength Pulse Strength [Apical] Normal Respiratory Rate 18 24 Respiratory Effort / Characteristics SOB on Exertion Respiratory Depth Normal Respiratory Pattern Regular Blood Pressure 124/78 Blood Pressure [Right Arm] 127/85 Blood Pressure Mean 93 Blood Pressure Mean [Right Arm] 99 Blood Pressure Position Pulse Oximetry 100 100 100 Oxygen Delivery Method Room Air Room Air Sepsis Recent Fever Within 48 Hours Sepsis New/Unexplained Change in Mental Status Sepsis Action Taken by Nursing 01/29/24 13:29 01/29/24 13:30 01/29/24 13:36 Temperature 36.5 C Temperature Source Oral Pulse Rate 60 112 H 60 Pulse Rate [Apical] Pulse Rate from SpO2 Sensor 60 Pulse Rhythm Regular Pulse Strength Normal Pulse Strength [Apical] Respiratory Rate 23 18 27 H Respiratory Effort / Characteristics Respiratory Depth Respiratory Pattern Blood Pressure 112/74 112/74 Blood Pressure [Right Arm] Blood Pressure Mean 99 86 Blood Pressure Mean [Right Arm] Blood Pressure Position Lying Pulse Oximetry 99 100 100 Oxygen Delivery Method Sepsis Recent Fever Within 48 Hours Sepsis New/Unexplained Change in Mental Status Sepsis Action Taken by Nursing 01/29/24 13:42 01/29/24 13:45 01/29/24 13:45 Temperature 36.5 C Temperature Source Oral Pulse Rate 60 60 Pulse Rate [Apical] Pulse Rate from SpO2 Sensor 60 Pulse Rhythm Regular Pulse Strength Normal Pulse Strength [Apical] Respiratory Rate 20 20 Respiratory Effort / Characteristics Respiratory Depth Respiratory Pattern Blood Pressure 119/77 119/77 Blood Pressure [Right Arm] Blood Pressure Mean 91 99 Blood Pressure Mean [Right Arm] Blood Pressure Position Lying Pulse Oximetry 100 100 Oxygen Delivery Method Sepsis Recent Fever Within 48 Hours Sepsis New/Unexplained Change in Mental Status Sepsis Action Taken by Nursing 01/29/24 13:54 01/29/24 14:00 01/29/24 14:00 Temperature Temperature Source Pulse Rate 60 Pulse Rate [Apical] Pulse Rate from SpO2 Sensor 60 Pulse Rhythm Pulse Strength Pulse Strength [Apical] Respiratory Rate 28 H Respiratory Effort / Characteristics Respiratory Depth Respiratory Pattern Blood Pressure 119/78 119/78 Blood Pressure [Right Arm] Blood Pressure Mean 96 96 Blood Pressure Mean [Right Arm] Blood Pressure Position Pulse Oximetry 99 Oxygen Delivery Method Sepsis Recent Fever Within 48 Hours Sepsis New/Unexplained Change in Mental Status Sepsis Action Taken by Nursing 01/29/24 14:06 01/29/24 14:14 01/29/24 14:15 Temperature 36.5 C Temperature Source Oral Pulse Rate 60 60 Pulse Rate [Apical] Pulse Rate from SpO2 Sensor 60 Pulse Rhythm Regular Pulse Strength Normal Pulse Strength [Apical] Respiratory Rate 27 H 18 Respiratory Effort / Characteristics Respiratory Depth Respiratory Pattern Blood Pressure 112/71 109/78 Blood Pressure [Right Arm] Blood Pressure Mean 87 88 Blood Pressure Mean [Right Arm] Blood Pressure Position Pulse Oximetry 100 Oxygen Delivery Method Sepsis Recent Fever Within 48 Hours Sepsis New/Unexplained Change in Mental Status Sepsis Action Taken by Nursing 01/29/24 14:15 01/29/24 14:15 01/29/24 14:30 Temperature Temperature Source Pulse Rate 60 Pulse Rate [Apical] Pulse Rate from SpO2 Sensor 60 Pulse Rhythm Pulse Strength Pulse Strength [Apical] Respiratory Rate 23 Respiratory Effort / Characteristics Respiratory Depth Respiratory Pattern Blood Pressure 109/78 109/78 Blood Pressure [Right Arm] Blood Pressure Mean 91 91 Blood Pressure Mean [Right Arm] Blood Pressure Position Pulse Oximetry 100 Oxygen Delivery Method Sepsis Recent Fever Within 48 Hours Sepsis New/Unexplained Change in Mental Status Sepsis Action Taken by Nursing 01/29/24 14:42 01/29/24 14:45 01/29/24 14:45 Temperature Temperature Source Pulse Rate 60 Pulse Rate [Apical] Pulse Rate from SpO2 Sensor 60 Pulse Rhythm Pulse Strength Pulse Strength [Apical] Respiratory Rate 25 H Respiratory Effort / Characteristics Respiratory Depth Respiratory Pattern Blood Pressure 123/78 123/78 Blood Pressure [Right Arm] Blood Pressure Mean 98 98 Blood Pressure Mean [Right Arm] Blood Pressure Position Pulse Oximetry 99 Oxygen Delivery Method Sepsis Recent Fever Within 48 Hours Sepsis New/Unexplained Change in Mental Status Sepsis Action Taken by Nursing 01/29/24 15:00 01/29/24 15:00 01/29/24 15:00 Temperature Temperature Source Pulse Rate Pulse Rate [Apical] Pulse Rate from SpO2 Sensor Pulse Rhythm Pulse Strength Pulse Strength [Apical] Respiratory Rate Respiratory Effort / Characteristics Respiratory Depth Respiratory Pattern Blood Pressure 123/83 123/83 123/83 Blood Pressure [Right Arm] Blood Pressure Mean 103 103 103 Blood Pressure Mean [Right Arm] Blood Pressure Position Pulse Oximetry Oxygen Delivery Method Sepsis Recent Fever Within 48 Hours Sepsis New/Unexplained Change in Mental Status Sepsis Action Taken by Nursing 01/29/24 15:00 01/29/24 15:30 Temperature Temperature Source Pulse Rate 60 64 Pulse Rate [Apical] Pulse Rate from SpO2 Sensor 60 Pulse Rhythm Pulse Strength Pulse Strength [Apical] Respiratory Rate 21 20 Respiratory Effort / Characteristics Respiratory Depth Respiratory Pattern Blood Pressure Blood Pressure [Right Arm] Blood Pressure Mean Blood Pressure Mean [Right Arm] Blood Pressure Position Pulse Oximetry 99 Oxygen Delivery Method Sepsis Recent Fever Within 48 Hours Sepsis New/Unexplained Change in Mental Status Sepsis Action Taken by Retirement Medications Current Medication List: was personally reviewed by me Laboratory Data Attestation: I reviewed the patient's lab results. 01/29/24 11:00 01/29/24 11:00 Lab Results 01/29/24 01/29/24 Range/Units 11:00 11:54 WBC 7.31 (4.8-10.8) K/ul RBC 2.30 L (4.70-6.10) M/uL Hgb 6.4 L* (14.0-18.0) g/dl Hct 20.4 L* (42.0-52.0) % MCV 88.7 (80.0-100.0) fL MCH 27.8 (25.0-34.0) pg MCHC 31.4 L (32.0-36.0) g/dL RDW Std Deviation 54.4 H (36.4-46.3) fL RDW Coeff of Jason 18.6 H (11.5-14.5) % Plt Count 188 (130-400) K/uL MPV 10.5 (9.4-12.4) fL Immature Gran % (Auto) 0.4 % Neut % (Auto) 85.1 % Lymph % (Auto) 7.0 % [place] % (Auto) 6.6 % Eos % (Auto) 0.8 % Baso % (Auto) 0.1 % Neut # (Auto) 6.22 (1.40-6.50) K/uL Lymph # (Auto) 0.51 L (1.20-3.40) K/uL [place] # (Auto) 0.48 (0.11-0.59) K/uL Eos # (Auto) 0.06 (0.00-0.50) K/uL Baso # (Auto) 0.01 (0.00-0.20) K/uL Immature Gran # (Auto) 0.03 (0.01-0.20) K/uL Polychromasia 1+ Poikilocytosis Present Ovalocytes 1+ Acanthocytes (Spur) 1+ PT 75.4 H (9.0-12.0) Seconds INR 8.4 H* (0.9-1.1) APTT 58 H (21-31) Seconds PTT Ratio 2.2 Sodium 135 L (136-145) mmol/L Potassium 4.5 (3.5-5.1) mmol/L Chloride 99 (98-107) mmol/L Carbon Dioxide 20 L (21-32) mmol/L Anion Gap 16 H (3-11) BUN 106 H (6-23) mg/dl Creatinine 4.98 H* (0.6-1.4) mg/dl Est Cr Clr Drug Dosing 15.3 ml/min eGFR 11.72 BUN/Creatinine Ratio 21.3 H (10-20) Glucose 152 H (70-99(Fasting)) mg/dl Calcium 6.9 L (8.6-10.3) mg/dl Magnesium 1.7 (1.7-2.4) mg/dl Total Bilirubin 0.7 (0.2-1.0) mg/dl AST 20 (13-39) U/L ALT 22 (7-52) U/L Alkaline Phosphatase 61 (34-104) U/L Troponin I High Sens 10.5 (0-20) pg/ml Total Protein 6.2 (6.0-8.3) gm/dl Albumin 3.3 L (3.4-5.0) gm/dl Globulin 2.9 (2.5-4.0) gm/dl Albumin/Globulin Ratio 1.1 (0.9-2) Vitamin B12 1480 H (180-914) pg/ml Folate 14.33 (>5.38) ng/ml TSH 3.340 (0.300-4.500) uIu/ml Blood Type AB Positive Antibody Screen NEGATIVE Crossmatch See Detail Administered Medications Pantoprazole Sodium 40 mg/ (Dextrose) 100 mls @ 20 mls/hr IV Q5H COOKIE Stop: 02/28/24 13:29 Last Admin: 12/16/24 14:36 Dose: 8 mg/hr, 20 mls/hr Documented By: ALEXY Discontinued Medications Pantoprazole Sodium 80 mg/ (Dextrose) 120 mls @ 400 mls/hr IV NOW ONE Stop: 01/29/24 12:02 Last Infusion: 01/29/24 12:40 Dose: Infused Documented By: Admin: 01/29/24 12:05 Dose: 400 mls/hr Documented By: SARAH Famotidine (Pepcid 20mg Iv Push) 20 mg in 5 mls @ 2.5 mls/min IV NOW STA Stop: 01/29/24 11:46 Last Admin: 01/29/24 11:56 Dose: 2.5 mls/min Documented By: SARAH Calcium Gluconate () 1,000 mg in 60 mls @ 240 mls/hr IV NOW STA Stop: 01/29/24 12:59 Last Infusion: 01/29/24 14:50 Dose: Infused Documented By: Admin: 01/29/24 14:32 Dose: 240 mls/hr Documented By: ALEXY Phytonadione 10 mg/ Dextrose 51 mls @ 102 mls/hr IV ONE ONE Stop: 01/29/24 13:30 Last Infusion: 01/29/24 13:57 Dose: Infused Documented By: Admin: 01/29/24 13:20 Dose: 102 mls/hr Documented By: ALEXY Prothrombin Complex Concent ( (Human) 5,000 units/ Syringe) 200 mls @ 10 mls/min IV TODAY@1315 ONE; Protocol Stop: 01/29/24 13:34 Last Admin: 01/29/24 13:58 Dose: 10 mls/min Documented By: SARAH Pantoprazole Sodium 80 mg/ (Dextrose) 120 mls @ 480 mls/hr IV NOW ONE Stop: 01/29/24 13:22 Last Admin: 01/29/24 14:40 Dose: Not Given Documented By: ALEXY Imaging Data Radiologist's Impression: Chest X-Ray 01/29/24 11:46 XR chest 1V portable CLINICAL HISTORY: weakness COMPARISON STUDY: Chest radiograph October 22, 2023. FINDINGS: Left subclavian pacer is in place. Cardiomegaly is unchanged. There is interstitial thickening. Moderate bilateral pleural effusions with associated bibasilar opacities are present. IMPRESSION: Cardiomegaly with interstitial pulmonary edema, moderate bilateral pleural effusions and associated bibasilar opacities. ACT 112: Negative or not required by law. Electronically signed by: Jay Carrasco M.D. 01/29/2024 12:50 PM Discharge Plan Visit Data Chief Complaint: Shortness of Breath/Dyspnea Stated Complaint: SOB ED Provider: River Humphries Discharge Problem: GI bleed, CHF (congestive heart failure), SOB (shortness of breath), Anemia, CRF (chronic renal failure), Heme positive stool, Hypocalcemia Patient Disposition: Admitted As Inpatient Condition: Serious Discharge Instructions Interventions: ED Discharge Assessment Last Done: 01/29/24 15:32 Forms Stand Alone Forms: [employer] Prescriptions Prescriptions: No Action magnesium oxide 400 mg magnesium capsule 400 mg PO QAM Flintstones Complete (iron) Tablet,Chewable 1 tab PO PM Qty: 0 atorvastatin 40 mg Tablet 40 mg PO PM Qty: 0 cholecalciferol (vitamin D3) [Vitamin D3] 1,000 unit Capsule 2,000 unit PO PM tamsulosin 0.4 mg Capsule 0.4 mg PO PM cyanocobalamin (vitamin B-12) 1,000 mcg Tablet 1,000 mcg PO PM acetaminophen 500 mg Tablet 1,000 mg PO Q6H PRN (Reason: Pain) aspirin 81 mg Tablet 81 mg PO DAILY warfarin 3 mg Tablet See Rx Instructions .ROUTE .COMPLEX Rx Instructions: Monday patient takes 3mg and 1.5mg all other days metoprolol succinate 25 mg Tablet Extended Release 24 Hr 25 mg PO QAM Qty: 30 0RF Advanced Probiotic 625 mg (10 billion cell) Capsule 1 cap PO DAILY Qty: 30 0RF cyclobenzaprine 10 mg tablet 10 mg PO Q8H PRN (Reason: Muscle Spasms) oxycodone 5 mg tablet 5 mg PO Q6H PRN (Reason: Pain) torsemide 20 mg tablet 20 mg PO UD Qty: 30 0RF Rx Instructions: Monday,Monday and Monday potassium chloride 20 mEq tablet,ER particles/crystals 20 meq PO UD Qty: 30 0RF Rx Instructions: Monday, and Monday Referrals Referrals: Jocelyne Desai DO [Primary Care Provider] - Discharge Problem: GI bleed Qualifiers: GI bleed type/associated pathology: melena Qualified Code(s): K92.1 - Melena CHF (congestive heart failure) Qualifiers: Heart failure type: unspecified Heart failure chronicity: acute Qualified Code(s): I50.9 - Heart failure, unspecified Anemia Qualifiers: Anemia type: unspecified type Qualified Code(s): D64.9 - Anemia, unspecified CRF (chronic renal failure) Qualifiers: Chronic kidney disease stage: unspecified stage Qualified Code(s): N18.9 - Chronic kidney disease, unspecified
[2024-01-29] MEDS: FAMOTIDINE 20MG IV PUSH 20 MG/5 ML SYR IV STA (11:56)
[2024-01-29] MEDS: PANTOprazole 80 MG in DEXTROSE 5% 100 ML IV ONE ×2 (12:05→14:40)
[2024-01-29 12:25] LABS: Hematocrit (blood only) 20.4 % (42.0-52.0); Hemoglobin 6.4 g/dl (14.0-18.0); Mean Corpuscular Hemoglobin 27.8 pg (25.0-34.0); Mean Corpuscular Hgb Conc 31.4 g/dL (32.0-36.0); Mean Corpuscular Volume 88.7 fL (80.0-100.0); Mean Platelet Volume 10.5 fL (9.4-12.4); Platelet Count 188 K/uL (130-400); RDW Coefficient of Variation 18.6 % (11.5-14.5); RDW Standard Deviation 54.4 fL (36.4-46.3); White Blood Count 7.31 K/ul (4.8-10.8)
[2024-01-29 12:44] LABS: Albumin Globulin Ratio 1.1 (0.9-2); Albumin Level 3.3 gm/dl (3.4-5.0); BUN Creatinine Ratio 21.3 (10-20); Bilirubin,Total 0.7 mg/dl (0.2-1.0); Calcium 6.9 mg/dl (8.6-10.3); Creatinine Clr Calc Pharmacy 15.3 ml/min; Globulin 2.9 gm/dl (2.5-4.0); Magnesium 1.7 mg/dl (1.7-2.4); Potassium 4.5 mmol/L (3.5-5.1); Total Protein 6.2 gm/dl (6.0-8.3); Troponin I High Sensitivity 10.5 pg/ml (0-20)
[2024-01-29 12:45] LABS: Acanthocytes 1+; Basophils # (auto) 0.01 K/uL (0.00-0.20); Basophils % (auto) 0.1 %; Eosinophils # (auto) 0.06 K/uL (0.00-0.50); Eosinophils % (auto) 0.8 %; Immature Granulocytes # (auto) 0.03 K/uL (0.01-0.20); Immature Granulocytes % (auto) 0.4 %; Lymphocytes # (auto) 0.51 K/uL (1.20-3.40); Monocytes # (auto) 0.48 K/uL (0.11-0.59); Monocytes % (auto) 6.6 %; Neutrophils # (auto) 6.22 K/uL (1.40-6.50); Neutrophils % (auto) 85.1 %; Ovalocytes 1+; Poikilocytosis Present; Polychromasia 1+
[2024-01-29 12:52] LABS: Thyroid Stimulating Hormone 3.34 uIu/ml (0.300-4.500)
--- NOTE | 2024-01-29 12:52 | XRay Report ---
XR chest 1V portable CLINICAL HISTORY: weakness COMPARISON STUDY: Chest radiograph October 22, 2023. FINDINGS: Left subclavian pacer is in place. Cardiomegaly is unchanged. There is interstitial thicken ing. Moderate bilateral pleural effusions with associated bibasilar opacities are present. IMPRESSION: Cardiomegaly with interstitial pulmonary edema, moderate bilateral pleural effusions and associated bibasilar opacities. ACT 112: Negative or not required by law. Electronically signed by: Jay Carrasco M.D. 01/29/2024 12:50 PM
[2024-01-29 12:54] LABS: Partial Thromboplastin Ratio 2.2; Partial Thromboplastin Time 58 Seconds (21-31); Prothrombin Time 75.4 Seconds (9.0-12.0)
[2024-01-29 12:56] LABS: INR 8.4 (0.9-1.1)
[2024-01-29] MEDS ORDERED: PANTOPRAZOLE BOLUS/DRIP IV STA (13:08)
--- NOTE | 2024-01-29 13:13 | History & Physical Report ---
Date of Service January 29, 2024 Assessment & Plan (1) Symptomatic anemia: (2) Acute GI bleeding: (3) Atrial fibrillation: (4) Supratherapeutic INR: (5) CKD (chronic kidney disease) stage 4, GFR 15-29 ml/min: (6) Hypocalcemia: (7) CHF (congestive heart failure): (8) Diabetes type 2, controlled: (9) Hypertension: (10) Pacemaker: Plan Mr. Cooley is a 73 year old male that presents to the ED with worsening SOB x1 week. He has a PMH that includes: GI bleed, tachybradycardia syndrome status post pacemaker placement, CKD stage IV, history of CVA, CHF, fxp-rxfoagu-ylpxwidrs diabetes, HLD, PAF, history of gastric bypass in 2007, iron deficiency anemia, chronic leg wounds. On arrival, he was Found to be in volume overload with symptomatic anemia with a subtherapeutic INR for which she takes Coumadin for his paroxysmal A-fib. He has had numerous admissions this year with the most recent being 10/21/23 for similar symptoms including worsening renal function. He has been followed by GI and Nephro as an outpatient with plans to start hemo vs peritoneal dialysis. He has been seen by Vascular In the ED he was found to be anemic with a hemoglobin of 6.4; baseline 8. Additionally his INR was 8.4 and his creatinine is 4.98 with a baseline of 2.9-4.5. His creatinine has been worsening over the past few months and it was expected per nephrology that he may require dialysis moving forward. Symptomatic anemia: Acute GI bleed: Hgb on arrival 6.4; baseline 8.0 blood consent obtained and T/C 1UPRBC ordered and infused; timed recheck for 1829 Lasix 80 mg IV ordered post blood transfusion per discussion with Nephro NPO after midnight Protonix gtt started in ED GI consult placed Avoid anticoagulation; hold aspirin, Coumadin for now Most recent anemia work up from 01/18: Fe+ 18, TIBC 298, Transferrin 6 Receives IV Venofer; last dose last Monday Venofer 300 mg IV ordered Receiving Procrit through hematology CKD stage IV: Chronic Creatinine 4.98; baseline 3-4.5; has been progressively worsening Follows with Nephro as outpatient Nephrology consult placed as there have been conversation about him receiving hemodialysis Last seen by Nephrology on 11/30/23 Has met with Vascular previously for possible AV graft placement; they are considering HD vs PD Patient still makes urine Volume overload: CXR: Cardiomegaly with interstitial pulmonary edema, moderate bilateral pleural effusions and associated bibasilar opacities. Most recent ECHO 06/16/23: EF 55-60%, mild LVH, mild MR, mild-moderate TR I/O monitoring Received Lasix 80 mg IV post 1UPRBC Hypocalcemia: Acute Serum calcium 6.9; 1 g calcium gluconate given in ED; trend in a.m. no ectopy on monitor A-fib: Supratherapeutic INR: Chronic Takes Coumadin; hold for now while active GIB/elevated INR INR 8.4 on arrival; Vitamin K 5 mg and KCentra given in ED Recheck INR in AM; no active signs of bleeding Last INR 01/15/24 2.4; takes his coumadin as prescribed and does not think that he took additional dosing Chronic leg wounds: WOCN order placed Empirically started on doxycycline Check vitamin B12 and folate levels H/O Gastric bypass: Nex-ulffjuo-ntaghqwse diabetes mellitus: 2007 Anders-en-Y at [facility] [place]; he came off of insulin after his procedure Does not take any oral agents EGD 2007:- Z-line regular, 45 cm from the incisors. - No gross lesions in esophagus. - Stenosed Anders-en-Y gastrojejunostomy was found. EGD 2023: - Normal esophagus. - Z-line regular. - Gastric bypass with a normal-sized pouch. Gastrojejunal anastomosis characterized by healthy appearing mucosa. - Normal examined jejunum Colonoscopy 2010: - Preparation of the colon was poor. - Stool entire examined colon. - The examination was otherwise normal Colonoscopy 2021: - The examined portion of the ileum was normal. - The entire examined colon is normal on direct and retroflexion views. - No specimens collected HTN: Chronic Takes metoprolol; continue HLD: Takes atorvastatin; continue Tachybradycardia syndrome: Status post pacemaker: Cardiomegaly with interstitial pulmonary edema, moderate bilateral pleural effusions and associated bibasilar opacities. Disposition: PCP: Jocelyne Desai PA-C CODE STATUS: Full code VTE prophylaxis teds and SCDs for now Patient will be admitted for further evaluation and management for an acute GI bleed. He is short of breath secondary to his anemia and CHF. He was given IV vitamin K and Kcentra in the ED to reverse his elevated INR. He was started on a Protonix drip and given IV calcium gluconate. He did receive 1 unit of packed red blood cells. History of Present Illness Chief Complaint: [facility] Primary Care Provider: Jocelyne Desai DO Mr. Cooley is a 73 year old male that presents to the ED with worsening SOB x1 week. He has a PMH that includes: GI bleed, tachybradycardia syndrome status post pacemaker placement, CKD stage IV, history of CVA, CHF, cyx-srlbqdl-ffxyarlme diabetes, HLD, PAF, history of gastric bypass in 2007, iron deficiency anemia, chronic leg wounds. On arrival, he was Found to be in volume overload with symptomatic anemia with a subtherapeutic INR for which she takes Coumadin for his paroxysmal A-fib. He has had numerous admissions this year with the most recent being 10/21/23 for similar symptoms including worsening renal function. He has been followed by GI and Nephro as an outpatient with plans to start hemo vs peritoneal dialysis. He has been seen by Vascular In the ED he was found to be anemic with a hemoglobin of 6.4; baseline 8. Additionally his INR was 8.4 and his creatinine is 4.98 with a baseline of 2.9- 4.5. His creatinine has been worsening over the past few months and it was expected per nephrology that he may require dialysis moving forward. In the past, he has had the following procedures: EGD 2007:- Z-line regular, 45 cm from the incisors. - No gross lesions in esophagus. - Stenosed Anders-en-Y gastrojejunostomy was found. EGD 2023: - Normal esophagus. - Z-line regular. - Gastric bypass with a normal-sized pouch. Gastrojejunal anastomosis characterized by healthy appearing mucosa. - Normal examined jejunum Colonoscopy 2010: - Preparation of the colon was poor. - Stool entire examined colon. - The examination was otherwise normal Colonoscopy 2021: - The examined portion of the ileum was normal. - The entire examined colon is normal on direct and retroflexion views. - No specimens collected In the past, he has had the following in the ED there was no leukocytosis calcium level was low at 6.9. ECG showed a pacemaker without ischemia. Initial troponin was negative. No transaminitis noted. Chest x-ray does indicate pleural effusions with heart failure. Patient will be admitted for further evaluation and management for an acute GI bleed. He is short of breath secondary to his anemia and CHF. He was given IV vitamin K and Kcentra in the ED to reverse his elevated INR. He was started on a Protonix drip and given IV calcium gluconate. He did receive 1 unit of packed red blood cells. Allergies Allergy/AdvReac Type Severity Reaction Status Date / Time No Known Allergies Allergy Verified 10/21/23 17:49 Home Medications Medication Instructions Recorded Confirmed Type pediatric rqditfzq-gmqc-dny 1 tab PO PM ##0 04/11/13 01/29/24 History (Flintstones Complete (iron) chewable tablet) atorvastatin 40 mg tablet 40 mg PO PM #0 tabs 01/08/17 01/29/24 History cholecalciferol (vitamin D3) 25 2,000 unit PO PM 10/18/17 01/29/24 History mcg (1,000 unit) capsule (Vitamin D3) cyanocobalamin (vitamin B-12) 1,000 mcg PO PM 05/06/19 01/29/24 History 1,000 mcg tablet tamsulosin 0.4 mg capsule 0.4 mg PO PM 05/06/19 01/29/24 History magnesium oxide 400 mg PO QAM 09/26/19 01/29/24 History acetaminophen 500 mg tablet 1,000 mg PO Q6H PRN Pain 12/17/20 01/29/24 History aspirin 81 mg tablet 81 mg PO DAILY 12/21/20 01/29/24 History warfarin 3 mg tablet See Rx Instructions .Route .COMPLEX 10/07/22 01/29/24 History metoprolol succinate 25 mg 25 mg PO QAM #30 tabs 10/16/22 01/29/24 Rx tablet,extended release 24 hr L.acidop,casei,lactis,rham-B.lact,scot 1 cap PO DAILY #30 caps 08/07/23 01/29/24 Rx 625 mg (10 billion cell) capsule (Advanced Probiotic) cyclobenzaprine 10 mg tablet 10 mg PO Q8H PRN Muscle Spasms 10/21/23 01/29/24 History oxycodone 5 mg tablet 5 mg PO Q6H PRN Pain 10/21/23 01/29/24 History potassium chloride 20 mEq 20 meq PO UD #30 tabs 10/24/23 01/29/24 Rx tablet,extended release(part/cryst) torsemide 20 mg tablet 20 mg PO UD #30 tabs 10/24/23 01/29/24 Rx Past Med/Surg History Problem List Hypocalcemia (Acute) Heme positive stool (Acute) CRF (chronic renal failure) (Acute) Anemia (Acute) SOB (shortness of breath) (Acute) CHF (congestive heart failure) (Acute) GI bleed (Acute) Hypocalcemia Supratherapeutic INR CKD (chronic kidney disease) stage 4, GFR 15-29 ml/min Symptomatic anemia (Acute) Dyspnea (Acute) Chronic anticoagulation (Acute) Acute GI bleeding (Acute) GIB (gastrointestinal bleeding) Acute on chronic anemia Bacterial infection due to Pseudomonas Acute UTI (Acute) Leg pain, right Morbid obesity Cellulitis of leg, right (Acute) Pacemaker battery depletion Hx MRSA infection Cellulitis of right lower extremity Acute dyspnea (Acute) Acute exacerbation of CHF (congestive heart failure) (Acute) Non-ST elevation NH (NSTEMI) (Acute) Acute kidney injury superimposed on chronic kidney disease (Acute) Chronic osteomyelitis Traumatic open wound of lower leg Infected wound Status post partial amputation of foot Abdominal pannus Venous stasis ulcer of right lower leg with edema of right lower leg Chronic venous insufficiency of lower extremity (Chronic) Diabetic ulcer of toe (Acute) Diabetic ulcer of right foot (Acute) Spinal stenosis (Chronic) CHF (congestive heart failure) (Chronic) Diabetes type 2 with atherosclerosis of arteries of extremities Right hip pain Unsteady gait Personal history of diabetic foot ulcer Diabetic peripheral neuropathy associated with type 2 diabetes mellitus Diabetes type 2, controlled NIDDM Atrial fibrillation (Chronic) Peripheral arterial disease (Chronic) 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, 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, Right great toe amputation 07/2020 with revision 08/2020 Hypertension (Chronic) Chronic anemia CVA (cerebral vascular accident) 01/2018; residual right sided weakness Mixed sleep apnea No device (previous BIPAP) CKD (chronic kidney disease), stage III Dyslipidemia Pacemaker (Chronic) Left, normal single chamber pacemaker function with stable pacing and sensing thresholds per pacer check 12/08/20 S Tachy-geronimo syndrome Medical History MRSA infection Hyperlipemia Essential hypertension 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 kidney disease Degenerative cervical spinal stenosis Degenerative lumbar spinal stenosis Proliferative diabetic retinopathy Venous insufficiency of both lower extremities Erectile dysfunction Nonalcoholic 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 (PLATT) custodial current use of 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 Hyperparathyroidism, secondary renal Esophageal obstruction Complex sleep apnea syndrome Vitamin B12 deficiency Persistent proteinuria Paroxysmal SVT (supraventricular tachycardia) Myocardial Infarction 2017 > medically managed CHF (congestive heart failure) Acute renal failure superimposed on stage 3 chronic kidney disease 08/2020 hospitalization, UTI and osteomyelitis, necrotizing fasciitis Depression Sepsis 2013 Surgical History History of amputation of lesser toe of right foot Hx of angioplasty Amputation toe Right great toe amputation (08/12/20): MAC at [facility] History of esophagogastroduodenoscopy (EGD) History of vascular surgery Left popliteal, EVELINE TPT/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 (10/2019) Right great toe I&D, revision amputation (08/21/20): MAC at [facility] History of hand surgery Tendon transfer Gastric bypass status for obesity Family History Brother Diabetes Mother Diabetes Father Diabetes Other Cancer Hypertension Social History Smoking Status: Former smoker Tobacco Type: Cigarettes Cigarettes Per Day: quit a long time ago; Second Hand Exposure: No; Do You Dip or Chew Tobacco: No; Hx Alcohol Use: Yes Alcohol type: beer and wine Alcohol Intake Frequency: Monthly or Less Hx Substance Use: No Preferred Language: Sami 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 Ability: Effective Visual Impairment: No Limitations Hearing Ability: Normal 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 current occupational status: retired How many Children do You have: 2 Feels Safe at Home: Yes Diet Comment: Educated to increase protein, vitamin c, d and zinc Assistive Devices: Cane, Walker and Other Review of Systems Review of Systems: Neuro: (-) Falls, trauma, slurred speech HEENT: (-) SEXTON, dizziness, dysphagia, visual or auditory changes CV: (-) CP, palpitations, swelling Resp: (-) SOB GI: (-) appetite changes, N/V/D, bowel changes : (-) urinary changes Skin: (-) rashes Psych: (-) anxiety, depression Physical Exam Physical Exam: See Dr. Chow's addendum for physical examination findings Results & Data Results & Data Vital Signs (Past 12 Hours) Vital Signs Temp Pulse Pulse Resp BP BP Pulse Ox 01/29/24 12:06 100 01/29/24 11:13 61 18 127/85 100 01/29/24 11:11 100 01/29/24 11:11 01/29/24 11:06 68 20 100 01/29/24 11:04 127/85 01/29/24 11:00 86 01/29/24 10:55 36.6 C 64 19 127/85 100 O2 Del Method 01/29/24 12:06 Room Air 01/29/24 11:13 Room Air 01/29/24 11:11 Room Air 01/29/24 11:11 Room Air 01/29/24 11:06 01/29/24 11:04 01/29/24 11:00 01/29/24 10:55 Room Air Laboratory Results Short CBC 01/29/24 Range/Units 11:00 WBC 7.31 (4.8-10.8) K/ul Hgb 6.4 L* (14.0-18.0) g/dl Hct 20.4 L* (42.0-52.0) % Plt Count 188 (130-400) K/uL BMP 01/29/24 11:00 Sodium 135 L Potassium 4.5 Chloride 99 Carbon Dioxide 20 L BUN 106 H Creatinine 4.98 H* Glucose 152 H Calcium 6.9 L Liver Function 01/29/24 Range/Units 11:00 Total Bilirubin 0.7 (0.2-1.0) mg/dl AST 20 (13-39) U/L ALT 22 (7-52) U/L Alkaline Phosphatase 61 (34-104) U/L Albumin 3.3 L (3.4-5.0) gm/dl Diagnostic Findings Chest X-Ray 01/29/24 11:46 XR chest 1V portable CLINICAL HISTORY: weakness COMPARISON STUDY: Chest radiograph October 22, 2023. FINDINGS: Left subclavian pacer is in place. Cardiomegaly is unchanged. There is interstitial thickening. Moderate bilateral pleural effusions with associated bibasilar opacities are present. IMPRESSION: Cardiomegaly with interstitial pulmonary edema, moderate bilateral pleural effusions and associated bibasilar opacities. ACT 112: Negative or not required by law. Electronically signed by: Jay Carrasco M.D. 01/29/2024 12:50 PM Code Status & VTE Plan Code Status Full code VTE Prophylaxis Plan VTE Prophylaxis will be ordered: Yes Supervising Physician Co-Signing Physician Notes Patient is a 73-year-old male with multiple comorbidities including CKD stage IV, CVA, GI bleed, tachybradycardia syndrome, pacemaker placement, CHF, diabetes mellitus, hyperlipidemia, paroxysmal atrial fibrillation on chronic anticoagulation with Coumadin, history of gastric bypass, iron deficiency anemia, chronic leg wounds and other medical problems presents with history of dark stools associated with worsening shortness of breath since 1 week duration. He reports having significant generalized weakness, fatigue lately. Follows with Coumadin clinic and denies any recent change in his Coumadin dose. Patient presents with supratherapeutic INR of 8.4. He denies any bright red blood per rectum, hematuria, epistaxis. His renal function has been gradually progressing and was informed that eventually he may need to be started on peritoneal dialysis. His appetite has been poor lately. Patient previously had EGD and colonoscopy and was planned to have a capsule endoscopy eventually. Patient presents with hemoglobin 6.4, hematocrit 20.4. Patient received Kcentra and vitamin K in ED. Please review HPI for complete details of presentation. I personally reviewed blood work and imaging studies. Urinalysis currently pending. Creatinine elevated at 4.96. Sodium 135, glucose 152. Calcium 6.9. Physical Exam: Vitals signs as noted above General Appearance: Chronically ill-appearing, no apparent distress Head: normocephalic, Atraumatic Eyes: normal inspection, EOMI,+ pallor Neck: supple, Trachea midline,+ JVD Respiratory/Chest: Decreased breath sounds, basal crackles bilaterally, No accessory muscle use Cardiovascular: S1, S2, No murmur,+ pacemaker Abdomen/GI:Soft, Non tender, Bowel sounds present Extremities/Musculoskeletal:normal inspection, B/L LE Wounds, 2-3+ Edema, R great Toe S/P amputation Neurologic/Psych:AAOX3, grossly no focal neurological deficits Skin: normal color, warm Symptomatic anemia Melena In setting of supratherapeutic INR secondary to Coumadin use Volume overload status Hypocalcemia CKD stage IV Chronic leg wounds Received Kcentra, vitamin K in ED Transfuse 1 unit PRBC and monitor H&H Will receive IV Lasix posttransfusion Started on Protonix drip GI consulted Give IV Venofer Nephrology consulted as well Check ionized calcium Replaced calcium in ED Liquid diet for now NPo after midnight for possible EGD, colonoscopy Avoid anticoagulation Hold aspirin, Coumadin for now brush sander consulted Empirically started on doxycycline Check vitamin B-12, folate levels I personally interviewed and examined at bedside. Patient's care is coordinated with Lissa DEJESUS. I have reviewed the advanced practitioner's d ocumentation, and I agree with plan of care. Please refer to the documentation above for details of patient's presentation and for discussion of other issues. I spent a total [id number] coordinating, documenting, and providing care for this patient excluding time spent in the performance of separately billed services.
[2024-01-29] MEDS: PHYTONADIONE 10 MG in DEXTROSE 5% 50 ML IV ONE (13:20)
[2024-01-29] MEDS ORDERED: DEXTROSE 50% 50 ML SYRINGE IV PRN (13:46)
[2024-01-29] MEDS ORDERED: GLUCOSE 40% GEL 15 GM TUBE PO PRN (13:46)
[2024-01-29] MEDS ORDERED: GLUCOSE 10 TAB/TUBE PO PRN (13:46)
[2024-01-29] MEDS ORDERED: GLUCAGON FOR INJ 1 MG VIAL SQ PRN (13:46)
[2024-01-29] MEDS ORDERED: CARBOHYDRATES FOR HYPOGLYCEMIA PO PRN (13:46)
[2024-01-29] MEDS: PROTHROMBIN COMP CONC- KCENTRA 5,000 UNITS in SYRINGE 0 ML IV ONE (13:58)
[2024-01-29] MEDS: CALCIUM GLUCONATE 1,000 MG/60 ML BAG IV STA (14:32)
[2024-01-29] MEDS: PANTOprazole 40 MG in DEXTROSE 5% MINI-B 100 ML IV SCH (14:36)
[2024-01-29 15:07] LABS: Folate (Folic Acid),Ser orPlas 14.33 ng/ml (>5.38)
--- OUTSIDE RECORDS SUMMARY | 2024-01-29 17:40 | External Medical Summary | Continuity of Care Document ---
Author Name Unknown Organization [place] [id number] [facility] Address [address] [place], [place] [id number] Care Team Providers Care Cancer Registrar Name Role Phone Jocelyne Desai Primary Care Physician [phone] [id number] Date(s): 01/23/24 - 01/23/[address], [address] [place] [address] [phone] Discharge Disposition: Home or Self Care Attending Physician: HORTENCIA Borges Lynn Referring Physician: HORTENCIA Borges Lynn Allergies, Adverse Reactions, Alerts No Known Medication Allergies Medications aspirin 81 mg oral delayed release tablet Start: 01/20/18 11:48:00 AM EST, 1 tab, PO, Daily Start Date: 01/20/18 Status: Ordered Colace Start: 02/15/18 1:34:00 PM EST, 100 mg = Start Date: 02/15/18 Status: Ordered Coumadin 5 mg oral tablet Start: 01/26/18 1:06:00 PM EST, 1 tab, PO, Daily Start Date: 01/26/18 Status: Ordered Flintstones Complete oral tablet, chewable Start: 04/24/18 12:18:00 PM EDT, 1 tab, PO, Daily Start Date: 04/24/18 Status: Ordered hydroCHLOROthiazide 25 mg oral tablet Start: 01/20/18 11:48:00 AM EST, 1 tab, PO, Daily Start Date: 01/20/18 Status: Ordered Lipitor 40 mg oral tablet Start: 01/20/18 11:48:00 AM EST, 1 tab, PO, Daily Start Date: 01/20/18 Status: Ordered losartan 25 mg oral tablet Start: 01/26/18 1:07:00 PM EST, 0.5 tab, PO, Daily Start Date: 01/26/18 Status: Ordered Lovenox Start: 01/26/18 1:07:00 PM EST, 40 mg =, subQ, q24h Start Date: 01/26/18 Status: Ordered metFORMIN 500 mg oral tablet Start: 01/20/18 11:48:00 AM EST, 2 tab, PO, bid Start Date: 01/20/18 Status: Ordered nitrofurantoin macrocrystals-monohydrate 100 mg oral capsule Start: 01/26/18 1:19:00 PM EST, 1 cap, PO, q12h, LAST DOSE 02/01. Please f/u urine culture on 01/27 Start Date: 01/26/18 Status: Ordered tamsulosin 0.4 mg oral capsule Start: 01/26/18 1:08:00 PM EST, 1 cap, PO, Daily Start Date: 01/26/18 Status: Ordered traMADol 50 mg oral tablet Start: 01/26/18 1:08:00 PM EST, 0.5 tab, PO, q6h, PRN: Pain - Severe Start Date: 01/26/18 Status: Ordered Tylenol 500 mg oral tablet Start: 01/26/18 1:17:00 PM EST, 2 tab, PO, q8h, PRN: Fever/Mild Pain Start Date: 01/26/18 Status: Ordered Vitamin B12 Start: 01/20/18 11:49:00 AM EST Start Date: 01/20/18 Status: Ordered Problem List Condition Confirmation Course Effective Dates Status H ealth Status Informant Stroke Confirmed Active Chronic kidney disease Confirmed Active Dysarthria Confirmed Active Hemisensory loss Confirmed Active H/O: stroke Confirmed Active Normocytic anemia Confirmed Active Thrombocytopenia Confirmed Active Heart failure with reduced ejection fraction Confirmed Active Procedures Procedure Date Related Diagnosis Body Site Status Gastric bypass Completed Pacemaker care Completed Surgery 1 Completed Surgery 2 Completed Tendon transfer 3 Complet ed 1partial toe amputation right footr second toe 2discs c4-5 removed from neck 3right hand Results Radiology Reports * Exam Date Time Procedure Performing Provider Status 01/23/24 1:48 PM VL Vessel Mapping for Dialysis - Bila Lizbeth Echeverria; Final Notes: (VL Vessel Mapping for Dialysis - Bilat) Reason For Exam: ESRD VL Vessel Mapping for Dialysis - Bilat [facility] FINAL REPORT Name: RANI CHRISTIAN : 1950 Visit: [id number] Date: 23 Jan 2024 TYPE OF TEST: Peripheral Venous Testing REASON FOR TEST Chronic renal failure INTERPRETATION/FINDINGS Duplex imaging performed of the bilateral upper extremities: RIGHT ARM: 1. The cephalic vein appears to be an adequate conduit for dialysis access - the diameter ranges from 2.5 mm to 4.4 mm; however, there is no radial artery appreciated, so radiocephalic dialysis access is not an available option. 2. The basilic vein may be an adequate conduit for dialysis access in the upper arm - the diameter ranges from 2.1 mm to 3.2 mm in the upper arm. Median cubital vein is not appreciated. 3. No evidence of deep or superficial vein thrombosis. 4. No evidence of arterial disease in the right subclavian, axillary or brachial arteries. The brachial artery (antecubital) diameter is 4.2 mm. Unable to visualize the radial artery in the forearm, likely due to patient history of trauma to and surgeries performed on that arm when he was a child. The ulnar artery is heavily calcified, but appears patent with triphasic waveform insonated at the wrist. LEFT ARM: Note anatomical variant: The left brachial artery bifurcates in the mid upper arm. 1. The cephalic vein appears to be an adequate conduit for dialysis access in the upper arm - the diameter ranges from 2.6 mm to 3.9 mm in the upper arm. 2. The basilic vein appears to be an adequate conduit for dialysis access in the upper arm - the diameter is 4.9 mm at the antecubital fossa. Median cubital vein diameter is 5.1 mm. 3. No evidence of deep or superficial vein thrombosis. 4. No evidence of arterial disease in the left arm. Radial artery diameter is 3.0 mm at the antecubital fossa and 1.9 mm at the wrist. Ulnar artery diameter is 3.6 mm at the antecubital fossa. The radial and ulnar arteries in the forearm are heavily calcified, but appear patent with multiphasic flow insonated. No prior studies for comparison. IMPRESSION/COMMENTS I have personally reviewed the data relevant to the interpretation of this study. TECHNOLOGIST: Lizbeth GRIDER, RDCS, RVT PHYSICIAN: Ac Cutler M.D. Signed: 01/24/2024 08:43 AM Final Dictated by:MD Cutler Eugene J Dictated DT/TM:01/24/2024 8:44 Signed by:MD Cutler Eugene J Signed (Electronic Signature):01/24/2024 8:43 a Transcribed by:ALEXUS Social History Social History Type Response Smoking Status Never smoked cigaret [place] Sex Male Sex Representation Male (finding) Patient Care team information Care Team Personnel Name: HORTENCIA Borges Lynn Position: Physician Duplex Trimmer Exempt - Vasc Surg Member Role: Lifetime Relationship Address: [address] [place] [address] Name: DO Desai Amanda Mae Position: Referring DIRECT Member Role: Primary Care Provider Address: [address] [place] [address] Care Team Related Persons Name: WALLACE EVANS Name: HENRIETTA EVANS
--- OUTSIDE RECORDS SUMMARY | 2024-01-29 17:40 | External Medical Summary | Summary of Care ---
Author Name Unknown Organization [facility] Address [address] [facility] [place] [address] Phone [phone] Care Team Providers Care Vessel Captain Name Role Phone Jocelyne Desai DO Primary Care Provider [phone] Encounter Details Date Type Department Care Team (Late st Contact Info) Description 10/27/2023 Telephone Family Medicine [address] [phone] Jocelyne Desai DO [address] [place] [address] [place] [address] Allergies No known active allergiesdocumented as of this encounter (statuses as of 01/26/2024) Medications ACETAMINOPHEN 500 MG PO TABS 2 tabs [...] in the morning. 30 Capsule 4 Active Atorvastatin Calcium 40 MG Oral Tablet (Lipitor) Take 1 Tablet by mouth daily. 100 Tablet 2 11/23/2023 1:31 PM EDT 4 Active Cyclobenzaprine HCl 10 MG Oral Tablet (Flexeril) Take 1 Tablet by mouth every 8 hours as needed for Muscle spasms. 270 Tablet 07/27/2023 4:22 PM EDT 4 Active Metoprolol Succinate ER 25 MG Oral Tablet Extended Release 24 Hour (toPROL XL) Take 1 Tablet by mouth in the morning. 100 Tablet 3 08/19/2023 11:01 AM EDT 4 Active Tamsulosin HCl 0.4 MG Oral Capsule (Flomax) Take 1 Capsule by mouth in the morning. 100 Capsule 3 11/23/2023 1:31 PM EDT 4 Active Warfarin Sodium 3 MG Oral Tablet Take 1 Tablet by mouth every evening. As per anti-coagulatio n clinic. 100 Tablet 3 07/27/2023 4:22 PM EDT 4 Active Aspirin 81 MG Oral Tablet Chewable Take 1 Tablet by mouth in the morning. with food.. Active documented as of this encounter (statuses as of 01/26/2024) Active Problems Patient Care Coordination No te Formatting of this note migh t be different from the original. Good connectivity [facility] for wound care [phone] Televideo if needed. Problem Noted Date Diagnosed Date Anemia due to stage 4 chronic kidney disease Iron deficiency anemia due to chronic blood loss 11/03/2023 Atrial fibrillation 09/27/2023 SVT (supraventricular tachycardia) 09/27/2023 MRSA (methicillin resistant Staphylococcus aureu s) 06/30/2023 Orthostatic hypotension 06/30/2023 Pressure injury of buttock, stage 2 06/30/2023 Full code status 06/28/2023 Calculus of gallbladder with out cholecystitis without obstruction 06/28/2023 Stasis ulcer 06/28/2023 History of ID (myocardial infarction) 11/09/2021 Trigger ring finger of left hand 11/09/2021 Overview (11/09/2021): Also middle finger 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, with fat layer exposed 07/13/2021 Assessment & Plan (08/20/2021 5:42 PM EDT): Ulcer appears overall improved. He has significant history DM and PVD and recommended he still follow up with podiatry,. Letter in chart from [facility] podiatry they were unable to get in touch with him. Given phone number to call and make appt. He stated he is willing to do this. Assessment & Plan (07/13/2021 12:15 PM EDT): Toe ulcer present>1 month. Needs xray to rule out osteomyelitis--he will go to [facility] for xray. 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 Type 2 diabetes mellitus with peripheral vascula r disease 11/14/2018 Assessment & Plan (07/13/2021 12:13 PM EDT): Continue atorvastatin and asa. Followed by vascular [...] 03/29/2011 DYSLIPIDEMIA, GOAL LDL BELOW 100 01/20/2009 Overview (01/20/2009): Per Lipid Taxonomy. HTN, goal below 140/90 12/19/2008 Overview (12/19/2008): Modified per HTN Taxonomy. Type 2 diabetes mellitus wit h hemoglobin A1c goal of less than 7.5% 12/11/2008 Overview (06/09/2015): Per Diabetes Taxonomy. ICD-10 update of inactive term PLATT RESEARCH OTHER*[id number] 02/20/2007 SPINAL STENOSIS-LUMBAR 09/23/2002 Vitamin D deficiency Cervical spinal stenosis documented as of this encounter (statuses as of 01/26/2024) Resolved Problems Problem Noted Date Diagnosed Date Resolved Date Chronic kidney disease (CKD) , stage IV (severe) 09/27/2023 10/26/2023 Depression, unspecified 11/09/2021 03/ Depression, unspecified 11/09/2021 100 05/2022 Cellulitis of right leg 07/13/2021 1005/2022 Assessment & Plan (07/13/2021 12:14 PM EDT): Suspect this could be early/localized. Will treat with 7 days antibiotic. If pt cannot be reassess by Dr. Braxton office early next week will need [facility] provider recheck Multiple and open wound of l ower limb, left, subsequent encounter 07/13/2021 11/16/2022 Assessment & Plan (07/13/2021 12:04 PM EDT): Advised to not use tape directly on skin--secure dressings with jose wrap and tape the jose wrap. Continue to cleanse daily with soap and water and apply aqua-jaja AG, telfa and wrap. Concern for possible early cellulitis, will start 7 day course keflex Chronic kidney disease, stage 3b 06/23/2020 10/26/2020 Overview: Per CKD protocol PAD (peripheral artery disease) 04/14/2020 09/19/2023 Overview (09/19/2023): Included in DM complication code on pl [...] 07/30/2012 PVD (peripheral vascular disease) 11/09/2011 05/17/2019 Overview (05/17/2019): In a combination HTN, goal below 140/80 10/03/201106/03 Overview: Per HTN Protocol #27. Diabetic foot ulcer 04/27/2011 11/09/19 12 Severe obesity with body mas s index (BMI) of 35.0 to 39.9 with serious comorbidity 07/27/2009 Overview (11/29/2017): Per Obesity Protocol, #19 ICD-10 update of inactive diagnosis HTN, goal below 130/80 12/30/200810/05 DM TYPE 2 CAUSING RENAL DZ 12/11/2008 1 03/14/2014 Overview (12/11/2008): Per Diabetes Taxonomy. Cervical spondylosis with myelopathy 08/01/2008 08/31/2016 HTN, goal below 140/90 01/22/200812/19 Overview (12/19/2008): Modified per HTN Taxonomy. Abdominal pain, left upper quadrant 01/21/2008 08/26/2008 Esophageal stricture 01/21/2008 009 Perforation of esophagus 01/21/2008 Overview (03/29/2008): PERFORATED ESOPHAGUS Type 2 diabetes mellitus wit h hemoglobin A1c goal of less than 7.0% 12/14/2007 12/11/2008 Overview (06/09/2015): Per Diabetes Taxonomy. ICD-10 update of inactive term Examination following surgery 09/20/2007 08/26/2008 Dyslipidemia, goal LDL below 160 06/12/2006 10/13/2006 Mixed dyslipidemia 12/24/2005 12 9 Overview (01/20/2009): Per Lipid Taxonomy. DIAB RENAL MANIF ADULT 04/20/200512/11 Overview (12/11/2008): Per Diabetes Taxonomy. Atrial fibrillation 04/20/2005 01/13/20 15 PLANTAR FIBROMATOSIS 04/20/2005 008 LOC PRIM OSTEOARTH-ANKLE 04/20/2005 Severe nonproliferative diab etic retinopathy associated with type 2 diabetes mellitus 03/09/2005 05/05/2021 ADVANCE DIRECTIVE INFORMATION 01/19/2005 12/18/2023 Overview (04/14/2011): Yes, Patient instructed to provide copy of advance directive for provider to review and to be scanned into Electronic Medical Record No, Advance Directive brochure given to patient at prior appointment. Venous insufficiency 11/13/2004 022 Edema 11/13/2004 05/09/2007 Other hammer toe (acquired) 11/13/2004 10/05/2007 Morbid obesity, BMI not known 07/10/2003 08/26/2008 LUMB-LUMBOSAC DISC DEGEN 02/27/200305/2022 THORACIC DISC DEGEN 02/27/2003 11/17/19 23 LUMBAGO 12/24/2002 05/09/2007 LOC PRIM [id number] 12/24/200208/13 DEGENERATIVE SKIN DISORD 12/24/2002 VERTEBRAL FX NOS-CLOSED 12/24/200209/14 RUPT FLEXOR TENDON HAND 12/24/200204/14 DM type 2, not at goal 09/23/200212/13 Major depressive disorder 09/23/2002 Overview (12/06/2016): ICD-10 update of inactive term Kidney disease, chronic, sta ge I (GFR over 89 ml/min) 11/22/2017 Displacement of cervical int ervertebral disc without myelopathy 08/31/2016 Other B-complex deficiencies 11/22/2017 Toe osteomyelitis, right Amputated toe 11/14/2018 documented as of this encounter (statuses as of 01/26/2024) Immunizations Name Administration Dates Next Due COVID-19 mRNA, LNP-s, No Pre serve, 2-Dose Series (Moderna) 03/19/2020 COVID-19 mRNA, LNP-s, No Pre serve, 2-Dose Series (Pfizer) 02/16/2021,04/09/2020,03/19/2020 COVID-19, MRNA-LNP, PF, 30 M CG/0.3 mL, 12 YRS AND ABOVE, IM (PFIZER-Comirnaty) 11/16/2022 Covid-19, Mrna, Lnp-s, Pf, B ivalent, 30 Mcg, IM, 12 yrs and above (Pfizer) 11/16/2021 Diptheria/Tetanus (Adult) 12/01/2018 Hepatitis B, 20+ yrs 11/11/2002,06/10/2002,05/13 Pneumococcal Conjugate Vacc, 13 Valent (Prevnar) 11/01/2017 Pneumococcal Polysaccharide PPV23 (Pneumovax) 11/27/2018,09/28/2005 Season Influenza, Quad, PF, Adjuvanted, 65+ Yrs, IM (FLUAD) 10/22/2019 Seasonal Influenza Vac., MDV , IM, 0.5 mL (Fluzone) 01/28/2014,11/05/2012,11/09/2011,11/13,12/05/2008,12/26/2007 Seasonal Influenza, PF, 6 M & above, IM , (FluLaval or Fluzone) 11/01/2017,11/22/2016 11/22/2017 Seasonal Influenza, Quadriva lent Hd (Fluzone Hd) 11/16/2022,11/09/2021,10/16/2020 Seasonal Influenza, Quadriva lent, No Preserve, IM 12/21/2015,12/25/2014 Seasonal Influenza, Trivalen t, Adjuvanted, 65+ YRS, [...] Date Recorded PHQ Adult Total Score 0 10/31/2023 Hunger Vital Sign Answer Date Recorded Within the past 12 months, y ou worried that your food would run out before you got the money to buy more. Never true 10/31/19 24 Within the past 12 months, t he food you bought just didn't last and you didn't have money to get more. Never true 10/31/2023 Childcare Answer Date Recorded Do you feel overwhelmed with taking care of a child, family member or friend? No 10/31/2023 Does your family need help f inding childcare? (Household - for ages 0-17 years) Not on file 10/31/2023 Clothing Answer Date Recorded Have you been unable to get clothing when it was really needed? No 10/31/2023 Is your family able to get c lothes or diapers when needed? (Household - for ages 0-17 years) Not on file 10/31/2023 Personal Safety Answer Date Recorded Do you feel unsafe or have concerns for your saf ety? No 10/31/2023 Do you have concerns for you r family's safety? (Household - for ages 0-17 years) Not on file 10/31/2023 Utilities Answer Date Recorded Do you have trouble paying y our heating, water, or electric bill? No 10/31/2023 Is your family able to pay t he heat, water, or electric bill? (Household - for ages 0-17 years) Not on file 10/31/2023 Does your family have access to good internet? (Household - for ages 0-17 years) Not on file 10/31/2023 Employment Status Answer Date Recorded Are you unemployed or without regular income? No 10/31/2023 Does the household have a re gular source of income? (Household - for ages 0-17 years) Not on file 10/31/2023 Social Connections Answer Date Recorded How often do you feel lonely or isolated from th ose around you? Never 10/31/2023 Financial Resource Strain Answer Date R ecorded Do you have any trouble payi ng for your medications, or do you think you might in the future? No 10/31/2023 Does your family have troubl e paying for medicine? (Household - for ages 0-17 years) Not on file 10/31/2023 Transportation Needs Answer Date Record ed READ ONLY Do you have troubl e getting a ride to medical visits or work? Never True 10/31/2023 Does your family have a hard time getting a ride to doctors visits? (Household - for ages 0-17 years) Not on file 10/31/2023 Has lack of transportation k ept you from medical appointments, meetings, work, or from getting things needed for daily living? Check all that apply. No 10/31/2023 Do you (or your family) have trouble finding or paying for a ride (transportation)? (Household - for ages 0-17 years) Not on file 10/31/2023 Housing Stability Answer Date Recorded Do you currently live in a s helter or have no steady place to sleep at night? No 10/31/2023 READ ONLY Do you think you a re at risk of becoming homeless? No 10/31/2023 Does your family worry about paying for your home or becoming homeless? (Household - for ages 0-17 years) Not on file 0 10/31/2023 Are you homeless or worried that you might be in the future? No 10/31/2023 Are you (or your family) ashleigh eless or worried that you might be in the future? (Household - for ages 0-17 years) Not on file Food Insecurity Answer Date Recorded Do you need food for this week? No 10/31/2023 Are you able to get enough f ood for your family? (Household - for ages 0-17 years) Not on file 10/31/2023 Does your family need food t his week? (Household - for ages 0-17 years) Not on file 10/31/2023 Do you always have enough fo od for your family? 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 Asking about blood work that Dr. Mccauley wants drawn. Transferred to [place] in nephrology documented in this encounter Plan of Treatment Upcoming Encounters Date Type Department Care Team (Late st Contact Info) Description 01/29/2024 1:30 PM EST Laboratory Laboratory [facility] [place] [address] [place] [phone] Kayley, Lab [facility] [address] [facility] [place] [address] 01/29/2024 2:00 PM EST Office Visit Hematology/Oncology [facility] [place] [address] [facility] [place] [phone] Monse Coates MD [address] [place] [address] [place] [phone] 01/29/2024 2:30 PM EST Immunization/Injection Hematology/Oncology Treatment, [place] [address] [place] [phone] Kayley, Chair 7 Hem Onc [facility] [address] [facility] [place] [address] 02/06/2024 6:30 AM EST Anticoagulation [facility], Ilya Lafleur [address] [place] [address] [place] [address] [facility] [place] [address] 02/20/2024 12:30 PM EST Nurse Only Ancillary [address] [place] [address] [place], Nurse [address] [place] [address] 02/21/2024 3:20 PM EST Office Visit Nephrology [address] [place] [address] Jennifer Agustin MD [address] [place] [address] 03/08/2024 2:30 PM EST Office Visit Family Medicine [address] [place] [phone] Jocelyne Desai[address] [place] [address] 04/16/2024 3:00 PM EST Office Visit Nephrology [address] [place] [address] Jennifer Agustin MD [address] [place] [address] 04/19/2024 3:00 PM EST Office Visit Gastroenterology [address] [place] [address] Moon Avila CRNP [address] [place] [address] Scheduled Procedures Name Priority Associated Diagnoses Date/Ti me COLONOSCOPY FLEXIBLE PROXIMA L DIAGNOSTIC Recall Screening for colon cancer Health Maintenance Due Date Last Done Comments Cologuard 1997 Sigmoidoscopy 1997 Fecal Occult Blood Test 09/02/2009 09/02/2008, 05/04 Diabetic Eye Exam 12/30/2022 12/30/2021, , 12/28/2021, Additional history exists COVID-19 Vaccine ( season) 2023 11/16/2022, 11/16/2022, 11/16/2021, Additional history exists Diabetic Foot Exam 11/17/2023 11/16/2022, 0 05/05/2021, 11/22/2017, Additional history exists Adult Wellness Visit 02/17/2024 02/16/2023, 02/09/2022, 02/08/2021 HbA1c 02/23/2024 08/23/2023, 05/2022, 11/09/2022, Additional history exists GFR 07/19/2024 01/19/2024, 12/15, 12/04/2023, Additional history exists Depression Screening 10/30/2024 10/31/2023 Albumin/Creatinine Ratio 11/26/2024 024, 11/01/2023, 07/18/2023, Additional history exists DTap/Tdap Vaccines (3 - Td or Tdap) 12/01/2028 12/01/2018, 10/11/2007 Colonoscopy 09/09/2031 09/08/2021, 08/14, 09/23/2010 Colorectal Cancer Screening 09/09/2031 Hepatitis B Vaccine Completed 11/11/2002, 06/10/2002, 05/13/2002 Pneumococcal Vaccine: 65+ Years Completed 11/27/2018, 11/01/2017, 09/28/2005 Zoster Vaccines Completed 01/08/2019, 10/04/2018 Influenza Vaccine (FLU shot) Completed , 11/16/2022, 11/09/2021, Additional history exists HPV (Gardasil) Vaccine Aged Out No lo nger eligible based on patient's age to complete this topic MENINGOCOCCAL (MENACTRA/MENVEO) Aged Out No longer eligible based on patient's age to complete this topic documented as of this encounter Medical Devices Implanted Type Area Taximeter Repairer Device Identifier Shelf Expiration Date Model / Serial / Lot Shaft Fibula 6cm [id number] - [id number] Implanted:Qty: 1 on 09/05/2008 at [facility] Tissue - Human N/A: Spine Cervical MUSCULOSKELETAL TRANSPLANT FND 04/20/2010 [id number] / [id number] / Stent Eso Gw 22x70 [id number] - [id number] Implanted:Qty: 1 on 01/21/2008 at [facility] N/A: Esophagus [employer] 04/12/2009 [id number] / / [id number] Depuy Uniplate 32 Implanted:Qty: 1 on 09/05/2008 [...] [facility] N/A: Neck 1773--[id number] / [id number] / Plate Zach 3 Level Ti 54mm - [id number] Implanted:Qty: 1 on 05/07/2010 at [facility] N/A: Neck JNJ : DEPU[employer] SP[employer] [id number] / / Screw Zach Const St Ti 14mm - [id number] Implanted:Qty: 4 on 05/07/2010 at [facility] N/A: Neck JNJ : [employer] [id number] / / Screw 3.5x14 Mntr Fa [id number] - [id number] Implanted:Qty: 8 on 05/07/2010 at [facility] N/A: Spine Cervical JNJ : [employer] [id number] / / Jarrell [id number] - [id number] Implanted:Qty: 1 on 05/07/2010 at [facility] N/A: Spine Cervical JNJ : [employer] [id number] / / Screw Inner Mntr [id number] - [id number] Implanted:Qty: 8 on 05/07/2010 at [facility] N/A: Spine Cervical JNJ : [employer] [id number] / / Envista Intraocular Lens Implanted:Qty: 1 on 03/10/2022 by Liang Marshall MD at [facility] Right: Eye [employer] 08/13/2023 [id number] / [id number] / [id number] Envista Intraocular Lens Implanted:Qty: 1 on 03/24/2022 by Liang Marshall MD at 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 No Care Teams Vessel Captain Relationship Specialty Start Date End Date Jocelyne Desai DO [address] [place] [address] [place] [address] PCP - General Internal Medicine 11/09/16 documented as of this encounter
--- OUTSIDE RECORDS SUMMARY | 2024-01-29 17:41 | External Medical Summary | Summary of Care ---
Author Name Unknown Organization [facility] Address [address] [facility] [address] Phone [phone] Care Team Providers Care Nuclear Criticality Safety Engineer Name Role Phone Jocelyne Desai DO Primary Care Provider [phone] Reason for Referral * Evaluate & Treat - Unlimited Visits (Within 3 days (urgent)) - Authorized Specialty Diagnoses / Procedures Referred By Mingo de paz Referred To Contact Pharmacist / Pharmacy Diagnoses JORGE (acute kidney injury) (HCC) Anemia in stage 4 chronic kidney disease (HCC) Jocelyne Desai DO [address] [place] [address] [place] [address] Phone: tel: fax: Referral ID Status Reason Start Date Expiration Date Visits Requested Visits Authorized [id number] Authorized Specialty Services Required 10/26/2023 04/23/2024 99 99 Question Answer Referral Priority Within 3 days (urgent) Where should this appointment be scheduled? [facility] Referring Provider Role: Specialist Specialty: Nephro Reason for Referral: Anemia Comments Pharmacist Medication Therapy Management: Minimum frequency patient should be seen in person for medication management: as appropriate per clinical condition and patient status By my signature, I understand that my patient Lg Cooley will have his medication therapy managed by the [facility] ([facility]) per established policies, procedures, and protocols. I also certify that this referral may serve as an initiation of service for the management of drug therapy in the above noted patient. [facility] providers will be responsible for scheduling patient visits, obtaining appropriate laboratory studies, and adjusting medication management therapy per patient's need, in addition to those roles spelled out in the clinic policy, procedures, and drug management protocols. I understand that the service provided by the [facility] is voluntary and have informed patient that they can refuse the service at their discretion. I am aware that the [facility] Clinic will provide me with a copy of the patient encounter via my [facility] [facility]. I authorize the [facility] to carry out these activities on my behalf. I consider this program to be a necessary part of the patient's medical care. Marisela Peraza LPN Reason for Visit * Reason Onset Date Comments Hospital Follow-Up 10/25/2023 Encounter Details Date Type Department Care Team (Late st Contact Info) Description 10/25/2023 Telephone General Internal Medicine [facility] [place] [address] [facility] [place] [address] Jocelyne Desai DO [address] [place] [address] [place] [address] Hospital Follow-Up Allergies No known active allergiesdocumented as of this encounter (statuses as of 01/24/2024) Medications ACETAMINOPHEN 500 MG PO TABS 2 tabs every 6 hours as needed for discomfort 11/02/19 14 Active Vitamin B-12 1000 MCG Oral Tablet (Cyanocobalami n) Take 1 Tablet by mouth every evening. 30 Tablet 07/05/19 24 Active Flintstones w/Iron 18 MG Oral Tablet Chewable Take 1 Tablet by mouth every evening. 30 Tablet 07/05/19 24 Active Magnesium Oxide 400 MG Oral Capsule Take 1 Capsule by mouth in the morning. 30 Capsule 07/05/19 24 Active Atorvastatin Calcium 40 MG Oral Tablet (Lipitor) Take 1 Tablet by mouth daily. 100 Tablet 2 4 1:31 PM EDT 07/25/19 24 Active Cyclobenzaprin e HCl 10 MG Oral Tablet (Flexeril) Take 1 Tablet by mouth every 8 hours as needed for Muscle spasms. 270 Tablet 4 4:22 PM EDT 07/25/19 24 Active Metoprolol Succinate ER 25 MG Oral Tablet Extended Release 24 Hour (toPROL XL) Take 1 Tablet by mouth in the morning. 100 Tablet 3 4 11:01 AM EDT 07/25/19 Active Tamsulosin HCl 0.4 MG Oral Capsule (Flomax) Take 1 Capsule by mouth in the morning. 100 Capsule 3 4 1:31 PM EDT 07/25/19 Active Warfarin Sodium 3 MG Oral Tablet Take 1 Tablet by mouth every evening. As per anti-coagulat ion clinic. 100 Tablet 3 4 4:22 PM EDT 07/25/19 Active Aspirin 81 MG Oral Tablet Chewable Take 1 Tablet by mouth in the morning. with food.. 08/23/19 Active Sennosides-Doc usate Sodium 8.6-50 MG Oral Tablet (Senna S) Take 1 Tablet by mouth in the morning. 30 Tablet 07/05/19 24 024 Discontinued Midodrine HCl 2.5 MG Oral Tablet (Proamatine) Take 1 Tablet by mouth in the morning and 1 Tablet at noon and 1 Tablet in the evening. 90 Tablet 2 4 6:22 PM EDT 07/25/19 24 024 Discontinued Torsemide 20 MG Oral Tablet (Demadex) Take 1 Tablet by mouth in the morning and 1 Tablet before bedtime. 08/25/19 24 024 Discontinued(Re fill) Potassium Chloride Candi ER 20 MEQ Oral Tablet Extended Release Take 2 Tablets by mouth in the morning and 2 Tablets before bedtime. 09/06/23 Take 2 tablets in the morning 1 tablet before bed. 09/06/19 24 024 Discontinued(Re fill) documented as of this encounter (statuses as of 01/24/2024) Active Problems Patient Care Coordination No te Formatting of this note migh t be different from the original. Good connectivity [facility] for wound care [phone] Televideo if needed. Problem Noted Date Diagnosed [...] to rule out osteomyelitis--he will go to [facility] for xray. 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 Will treat with 7 days antibiotic. If pt cannot be reassess by Dr. Braxton office early next week will need [facility] provider recheck Multiple and open wound of [...] 160 06/12/2006 10/13/2006 Mixed dyslipidemia 12/24/2005 9 Overview (01/20/2009): Per Lipid Taxonomy. 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 Not on file Not on file Not on file Not on file 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 Nephrology consulted for JORGE. Dr Agustin recommends: [place] refer pt for ESRD Options education to learn about different ways to do dialysis, pros/cons oftransplant and of conservative care -he needs hospital d/c appt w/ me in 3-4 wks w/ BMP, phos, albumin, hgb, t sat. will refer to anemia clinic as well for mgt of CKD anemia. Please assist with these recommendations. Thank you documented in this encounter Plan of Treatment Upcoming Encounters Date Type Department Care Team (Late st Contact Info) Description 01/29/2024 1:30 PM EST Laboratory Laboratory [facility] [address] [place] [phone] [place], Lab Scenery [address] [facility] [place] [address] 01/29/2024 2:00 PM EST Office Visit Hematology/Oncology [facility] [address] [facility] [place] [phone] Monse Coates MD [address] [place] [address] [place] [address] 01/29/2024 2:30 PM EST Immunization/Injection Hematology/Oncology Treatment, [place] [address] [facility] [place] [phone] Kayley, Chair 7 Hem On[address] 200 [facility] [place] [address] 02/06/2024 6:30 AM EST Anticoagulation Centralized Clinical Pharmacy Services, Ilya Lafleur [address] [place] [address] [place] [address] [place] [address] 02/20/2024 12:30 PM EST Nurse Only Ancillary [address] [place] [address] [place], Nurse Annual [address] [place] [address] 03/08/2024 2:30 PM EST Office Visit Family Medicine [address] [place] [phone] Jocelyne Desai[address] [place] [address] 04/16/2024 3:00 PM EST Office Visit Nephrology [address] [place] [address] Jennifer Agustin MD [address] [place] [address] 04/19/2024 3:00 PM EST Office Visit Gastroenterology [address] [place] [address] Moon Avila CRNP [address] [place] [address] Scheduled Procedures Name Priority Associated Diagnoses Date/Ti me COLONOSCOPY FLEXIBLE PROXIMA L DIAGNOSTIC Recall Screening for colon cancer Scheduled Referrals Name Type Priority Associated Diagnoses Orde r Schedule PHARMACIST MEDS THERAPY MGMT REFERRAL OP Referral Within 3 days (urgent) JORGE (acute kidney injury) (HCC) Anemia in stage 4 chronic kidney disease (HCC) Ordered: 10/26/2023 Health Maintenance Due Date Last Done Comments [...] this encounter Medical Devices Implanted Type Area Nitric Acid Plant Operator Device Identifier Shelf Expiration Date Model / Serial / Lot Shaft Fibula 6cm [id number] - [id number] Implanted:Qty: 1 on 09/05/2008 at OR [facility] Tissue - Human N/A: Spine Cervical MUSCULOSKELETAL TRANSPLANT FND 04/20/2010 [id number] / [id number] / Stent Eso Gw 22x70 [id number] - [id number] Implanted:Qty: 1 on 01/21/2008 at OR [facility] N/A: Esophagus [employer]US INC 04/12/2009 [id number] / / [id number] Depuy Uniplate 32 Implanted:Qty: 1 on 09/05/2008 [...] Plate Zach 3 Level Ti 54mm - [id number] Implanted:Qty: 1 on 05/07/2010 at OR [facility] N/A: Neck JNJ : DEPUY SPINE [id number] / / Screw Zach Const St Ti 14mm - [id number] Implanted:Qty: 4 on 05/07/2010 at OR [facility] N/A: Neck JNJ : DEPUY SPINE [id number] / / Screw 3.5x14 Mntr Fa [id number] - [id number] Implanted:Qty: 8 on 05/07/2010 at OR [facility] N/A: Spine Cervical JNJ : ETHICON CARDIOVATIONS [id number] / / Jarrell [id number] - [id number] Implanted:Qty: 1 on 05/07/2010 at OR [facility] N/A: Spine Cervical JNJ : ETHICON CARDIOVATIONS [id number] / / Screw Inner Mntr [id number] - [id number] Implanted:Qty: 8 on 05/07/2010 at OR [facility] N/A: Spine Cervical JNJ : ETHICON CARDIOVATIONS [id number] / / Envista Intraocular Lens Implanted:Qty: 1 on 03/10/2022 by Liang Marshall MD at OR [facility] Right: Eye BAUSCH & LOMB 08/13/2023 [id number] / [id number] / [id number] Envista Intraocular Lens Implanted:Qty: 1 on 03/24/2022 by Liang Marshall MD at OR [facility] Left: Eye BAUSCH & LOMB 07/13/2024 [id number] / [id number] / [id number] documented as of this encounter Results * (ABNORMAL) ALBUMIN (11/01/2023 11:40 AM EDT) [facility] Album[facility] 3.5(L) 3.8 - 5.0 g/dL 11/02/2023 3:27 AM EDT LABORATORY [facility] Blood Venous blood specimen / Unknown Venipuncture / Unknown 11/01/2023 11:40 AM EDT 11/01/2023 11:40 AM EDT Jocelyne Desai DO LAB BLOOD ORDERABLES Final R esult LABORATORY 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 2 diabetes mellitus with stage 3b chronic kidney disease, with long-term current use of insulin (HCC) Venous insufficiency of both lower extremities Multiple open wounds of left lower leg Type 2 diabetes mellitus with peripheral vascular disease (HCC) Diabetic ulcer of toe of right foot associated with type 2 diabetes mellitus, limited to breakdown of skin (HCC)- Primary JORGE (acute kidney injury) (HCC)- Primary Acute kidney failure, unspecified Anemia in stage 4 chronic kidney disease (HCC) documented in this encounter Advance Directives Documents on File Type Date Recorded Patient Elevator Builder Expl anation POLST 01/26/2021 [place] OR [facility] [...] Power of Attor andrew? No Care Teams Nuclear Criticality Safety Engineer Relationship Specialty Start Date End Date Jocelyne Desai DO [address] [place] [address] [place] [address] PCP - General Internal Medicine 11/09/16 documented as of this encounter
--- OUTSIDE RECORDS SUMMARY | 2024-01-29 17:41 | External Medical Summary | Summary of Care ---
Author Name Unknown Organization [facility] Address [address] [facility] [place] [address] Phone [phone] Care Team Providers Care Ceramic Mold Designer Name Role Phone Jocelyne Desai DO Primary Care Provider Reason for Visit * Reason Onset Date Comments Advice 01/24/2024 Encounter Details Date Type Department Care Team ([facility] st Contact Info) Description 01/24/2024 Telephone Family Medicine [address] [phone] Jocelyne Desai DO [address] [place] [address] [place] [address] Advice Allergies No known [...] in the morning. with food.. 4 Active Vitron-C 65-125 MG Oral Tablet (Iron-Vitamin C 65-125 mg per tab) Take 1 Tablet by mouth in the morning. Active Vitamin D3 10 MCG (400 UNIT) Oral Tablet Chewable Take by mouth. Activ e Sodium Bicarbonate 650 MG Oral Tablet Take 2 Tablets by mouth in the morning and 2 Tablets before bedtime. 360 Tablet 3 11/30/2023 1:13 PM EDT 4 Active Torsemide 20 MG Oral Tablet (Demadex) Take 2 Tablets by mouth in the morning and 2 Tablets in the evening. 360 Tablet 3 4 Active Additional Information Patient taking differently:40 mg Oral BID (0900, 1600),12/27/23- Pt to take 80mg BID x3 days. Then decrease to 60mg BID, Reported on 01/19/2024 Potassium Chloride Candi ER 20 MEQ Oral Tablet Extended ReleaseIndicatio ns:Kidney disease, chronic, stage IV (GFR 15-29 ml/min) ([facility]) Take 1 Tablet by mouth in the morning. 4 Active Calcitriol 0.5 MCG Oral Capsule (Rocaltrol)Indic ations:Kidney disease, chronic, stage IV (GFR 15-29 ml/min) ([facility]),Hypocalcem ia Take 1 Capsule by mouth in the morning. 30 Capsule 5 4 Active documented as of this encounter (statuses as of 01/24/2024) Active Problems Patient Care Coordination No te Formatting of this note migh t be different from the original. Good connectivity [facility] for wound care [phone] Televideo if needed. Problem Noted Date Diagnosed [...] to rule out osteomyelitis--he will go to [facility] for xray. Non-pressure chronic ulcer o f [...] H/O gastric bypass 11/27/2018 Overview (11/27/2018): RYGB MCC current use of 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 [...] ICD-10 update of inactive term PLATT RESEARCH OTHER*[id number] 02/20/2007 SPINAL STENOSIS-LUMBAR 09/23/2002 Vitamin D deficiency Cervical spinal stenosis documented as of this encounter (statuses as of 01/24/2024) Resolved Problems Problem Noted Date Diagnosed Date Resolved Date Chronic kidney disease (CKD) , stage IV (severe) 09/27/2023 10/26/2023 Depression, unspecified 11/09/2021 03/2 Depression, unspecified 11/09/2021 100 05/2022 Cellulitis of right leg 07/13/202105/2022 Assessment & [...] below 160 06/12/2006 10/13/2006 Mixed dyslipidemia 12/24/2005 12/200 9 Overview (01/20/2009): Per Lipid Taxonomy. 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 Called [facility] back and states that they able to located the pt. Pt was running late from returning from an appt. Nothing further is needed. * Telephone Encounter - Kalie Dickson OSA - 01/24/2024 12:29 PM EST Reason for patient's call: [facility] calling from [facility] - [phone] Pt was not home for Meals on Wheels. She said pt normally calls if he's not home and they did not get a call. Caller was transferred to [facility] at the nurse line. documented in this encounter Plan of Treatment Upcoming Encounters Date Type Department Care Team (Late st Contact Info) Description 01/29/2024 1:30 PM EST Laboratory Laboratory [facility] [place] [address] [place] [phone] Kay[place], Lab [facility] 200 [facility] [place] [address] 01/29/2024 2:00 PM EST Office Visit Hematology/Oncology [facility] [place] [address] [place] [phone] Monse Coates MD [address] [place] [address] [place] [phone] 01/29/2024 2:30 PM EST Immunization/Injection Hematology/Oncology Treatment, [place] [address] [place] [phone] Kayley, Chair 7 Hem Onc Sc[address] 200 [facility] [place] [address] 02/06/2024 6:30 AM EST Anticoagulation Centralized Clinical Pharmacy Services, Ilya Lafleur [address] [place] [address] [place] [address] [place] [address] 02/20/2024 12:30 PM EST Nurse Only Ancillary [address] [place] [address] [place], Nurse Annual [address] [place] [address] 03/08/2024 2:30 PM EST Office Visit Family Medicine [address] [place] [phone] [address] [place] [address] 04/16/2024 3:00 PM EST Office Visit Nephrology [address] [place] [address] Jennifer Agustin MD [address] [place] [address] 04/19/2024 3:00 PM EST Office Visit Gastroenterology [address] [place] [address] Moon Avila, OLEG [address] [place] [address] Scheduled Procedures Name Priority Associated Diagnoses Date/Ti [...] 02/17/2024 02/16/2023, 02/09/2022, 02/08/2021 HbA1c 02/23/2024 08/23/2023, 10/0 05/2022, 11/09/2022, Additional history exists GFR 07/19/2024 [...] this encounter Medical Devices Implanted Type Area Servomechanism Designer Device Identifier Shelf Expiration Date Model / Serial / Lot Shaft Fibula 6cm [id number] - [id number] Implanted:Qty: 1 on 09/05/[place] [facility] [place] - Human N/A: Spine Cervical MUSCULOSKELETAL TRANSPLANT FND 04/20/2010 [id number] / [id number] / Stent Eso Gw 22x70 [id number] - [id number] Implanted:Qty: 1 on 01/21/2008 [place] [facility] N/A: Esophagus ALVEOLUS INC 04/12/2009 [id number] / / [id number] Depuy Uniplate 32 Implanted:Qty: 1 on 09/05/2008 [place] [facility] N/A: Spine Cervical TAMMY & TAMMY DEPUY 1897-02-302 / / Depuy Uniplate Screw 14mm Implanted:Qty: 2 on 09/05/2008 [place] [facility] N/A: Spine Cervical TAMMY & TAMMY DEPUY 1897-06-017 / / Depuy Lordotic Bengal Cage Implanted:Qty: 1 on 05/07/2010 [place] [facility] N/A: Neck 1773-06-146 / [id number] / Plate Zach 3 Level Ti 54mm - [id number] Implanted:Qty: 1 on 05/07/2010 [place] [facility] N/A: Neck JNJ : DEPUY SPINE [id number] / / Screw Zach Const St Ti 14mm - [id number] Implanted:Qty: 4 on 05/07/2010 [place] [facility] N/A: Neck JNJ : DEPUY SPINE [id number] / / Screw 3.5x14 Mntr Fa [id number] - [id number] Implanted:Qty: 8 on 05/07/2010 [place] [facility] N/A: Spine Cervical JNJ : ETHICON CARDIOVATIONS [id number] / / Jarrell [id number] - [id number] Implanted:Qty: 1 on 05/07/2010 [place] [facility] N/A: Spine Cervical JNJ : ETHICON CARDIOVATIONS [id number] / / Screw Inner Mntr [id number] - [id number] Implanted:Qty: 8 on 05/07/2010 [place] [facility] N/A: Spine Cervical JNJ : ETHICON CARDIOVATIONS [id number] / / Envista Intraocular Lens Implanted:Qty: 1 on 03/10/2022 by Liang Marshall MD at OR [facility] Right: Eye BAUSCH & LOMB 08/13/2023 [id number] / [id number] / [id number] Envista Intraocular Lens Implanted:Qty: 1 on 03/24/2022 by Liang Marshall MD at OR [facility] Left: Eye BAUSCH & LOMB 07/13/2024 [id number] / [id number] / [id number] documented as of this encounter Advance Directives Documents on File Type Date Recorded Patient Lab Nurse Expl anation POLST 01/26/2021 [place] OR [facility] [...] Power of Attor andrew? No Care Teams Ceramic Mold Designer Relationship Specialty Start Date End Date Jocelyne Desai DO [address] [place] [address] [place] [address] PCP - General Internal Medicine 11/09/16 documented as of this encounter
--- OUTSIDE RECORDS SUMMARY | 2024-01-29 17:41 | External Medical Summary | Summary of Care ---
Author Name Unknown Organization [facility] Address [address] [facility] [place] [address] Phone [phone] Care Team Providers Care Tack Coverer Name Role Phone Jocelyne Desai DO Primary Care Provider Reason for Visit * Reason Onset Date Comments Advice 01/24/2024 Encounter Details Date Type Department Care Team ([facility] st Contact Info) Description 01/24/2024 Telephone Family Medicine [address] [phone] Jocelyne Desai DO [address] [place] [address] [place] [address] Advice Allergies No known [...] stage IV (GFR 15-29 ml/min) ([facility]) Take 1 Tablet by mouth in the morning. 4 Active Calcitriol 0.5 MCG Oral Capsule (Rocaltrol)Indic ations:Kidney disease, chronic, stage IV (GFR 15-29 ml/min) ([facility]),Hypocalcem ia Take 1 Capsule by mouth in the morning. 30 Capsule 5 4 Active documented as of this encounter (statuses as of 01/24/2024) Active Problems Patient Care Coordination No te Formatting of this note migh t be different from the original. Good connectivity [facility] for wound care [phone] Televideo if needed. Problem Noted Date Diagnosed [...] podiatry,. Letter in chart from [facility] podiatry they were unable to get in touch with him. Given phone number to call and make appt. He stated he is willing to do this. Assessment & Plan (07/13/2021 12:15 PM EDT): Toe ulcer present>1 month. Needs xray to rule out osteomyelitis--he will go to [facility] for xray. 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 She said pt normally calls if he's not home and they did not get a call. Caller was transferred to [facility] at the nurse line. documented in this encounter Plan of Treatment Upcoming Encounters Date Type Department Care Team (Late st Contact Info) Description 01/29/2024 1:30 PM EST Laboratory Laboratory [facility] [place] [address] [place] [phone] Kayley, Lab [facility] [address] [facility] [place] [address] 01/29/2024 2:00 PM EST Office Visit Hematology/Oncology [facility] [place] [address] [place] [phone] Monse Coates MD [address] [place] [address] [place] [phone] 01/29/2024 2:30 PM EST Immunization/Injection Hematology/Oncology Treatment, [place] [address] [place] [phone] Kayley, Chair 7 Hem Onc Scenery 200 [facility] [place] [address] 02/06/2024 6:30 AM EST Anticoagulation Centralized Clinical Pharmacy Services, Ilya Lafleur [address] [place] [address] [place] [address] [place] [address] 02/20/2024 12:30 PM EST Nurse Only Ancillary [address] [place] [address] Mon[place], Nurse Annual [address] [place] [address] 03/08/2024 2:30 PM EST Office Visit Family Medicine [address] [place] [phone] [address] [place] [address] 04/16/2024 3:00 PM EST Office Visit Nephrology [address] [place] [address] Jennifer Agustin MD [address] [place] [address] 04/19/2024 3:00 PM EST Office Visit Gastroenterology [address] [place] [address] Moon Avila, OLEG [address] [place] [address] Scheduled Procedures Name Priority Associated Diagnoses Date/Ti [...] this encounter Medical Devices Implanted Type Area Kiln Loader Device Identifier Shelf Expiration Date Model / Serial / Lot Shaft Fibula 6cm [id number] - [id number] Implanted:Qty: 1 on 09/05/2008 [place] [facility] [place] - Human N/A: Spine Cervical MUSCULOSKELETAL TRANSPLANT FND 04/20/2010 [id number] / [id number] / Stent Eso Gw 22x70 [id number] - [id number] Implanted:Qty: 1 on 01/21/2008 [place] [facility] N/A: Esophagus ALVEOLUS INC 04/12/2009 85255-455 / / [id number] Depuy Uniplate 32 Implanted:Qty: 1 on 09/05/2008 [place] [facility] N/A: Spine Cervical TAMMY & TAMMY DEPUY 1897-02-302 / / Depuy Uniplate Screw 14mm Implanted:Qty: 2 on 09/05/2008 [place] [facility] N/A: Spine Cervical TAMMY & TAMMY DEPUY 1897-06-017 / / Depuy Lordotic Bengal Cage Implanted:Qty: 1 on 05/07/2010 [place] [facility] N/A: Neck 1773-06-146 / [id number] / Plate Zach 3 Level Ti 54mm - [id number] Implanted:Qty: 1 on 05/07/2010 [place] [facility] N/A: Neck JNJ : DEPUY SPINE [id number] / / Screw Zach Const St Ti 14mm - [id number] Implanted:Qty: 4 on 05/07/2010 at [place] [facility] N/A: Neck JNJ : DEPUY SPINE [id number] 14 / / Screw 3.5x14 Mntr Fa [id number] - [id number] Implanted:Qty: 8 on 05/07/2010 [place] [facility] N/A: Spine Cervical JNJ : ETHICON CARDIOVATIONS [id number] / / Jarrell [id number] - [id number] Implanted:Qty: 1 on 05/07/2010 at [place] [facility] N/A: Spine Cervical JNJ : ETHICON CARDIOVATIONS [id number] / / Screw Inner Mntr [id number] - [id number] Implanted:Qty: 8 on 05/07/2010 [place] [facility] N/A: Spine Cervical JNJ : ETHICON CARDIOVATIONS [id number] / / Envista Intraocular Lens Implanted:Qty: 1 on 03/10/2022 by Liang Marshall MD at OR [facility] Right: Eye BAUSCH & LOMB 08/13/2023 [id number] / [id number] / [id number] Envista Intraocular Lens Implanted:Qty: 1 on 03/24/2022 by Liang Marshall MD at OR [facility] Left: Eye BAUSCH & LOMB 07/13/2024 [id number] / [id number] / [id number] documented as of this encounter Advance Directives Documents on File Type Date Recorded Patient White Lead Grinder Expl anation POLST 01/26/2021 [place] OR [facility] FOR LIFE-SUSTAINING [...] Power of Attor andrew? No Care Teams Tack Coverer Relationship Specialty Start Date End Date Jocelyne Desai DO [address] [place] [address] [place] [address] PCP - General Internal Medicine 11/09/16 documented as of this encounter
--- OUTSIDE RECORDS SUMMARY | 2024-01-29 17:41 | External Medical Summary | Summary of Care ---
Author Name Unknown Organization [facility] [address] [facility] [address] Phone [phone] Care Team Providers Care Nipping Machine Operator Name Role Phone Jocelyne Desai DO Primary Care Provider + [phone] Reason for Visit * Reason Comments Medication Administration Retacrit * Episode Based Medications (Routine) - Authorized Specialty Diagnoses / Procedures Referred By Contac t Referred To Contact Diagnoses 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) Iron deficiency anemia due to chronic blood loss Procedures [place] INJ RETACRIT NON-ESRD USE Monse Coates MD [address] [facility] [place] [address] Phone: tel: fax: Hematology/Oncology Treatment, [address] [address] Phone: tel: fax: Referral ID Status Reason Start Date Expiration Date V isits Requested Visits Authorized [id number] Authorized 11/13/2023 11/12/2024 [id number] Encounter Details Date Type Department Care Team (Late st Contact Info) Description 12/18/2023 1:30 PM EST Immunization/I njection Hematology/Oncology Treatment, [address] [place] [address] Kayley, Chair [address] [place] [address] 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)*; Iron deficiency anemia due to chronic blood loss Allergies No known active allergiesdocumented as of [...] 4 1:31 PM EDT 07/25/19 24 Active Cyclobenzaprine HCl 10 MG Oral Tablet (Flexeril) Take 1 Tablet by mouth every 8 hours as needed for Muscle spasms. 270 Tablet 4 4:22 PM EDT 07/25/19 24 Active Metoprolol Succinate ER 25 MG Oral Tablet Extended Release 24 Hour (toPROL XL) Take 1 Tablet by mouth in the morning. 100 Tablet 3 4 11:01 AM EDT 07/25/19 24 Active Tamsulosin HCl 0.4 MG Oral Capsule (Flomax) Take 1 Capsule by mouth in the morning. 100 Capsule 3 4 1:31 PM EDT 07/25/19 24 Active Warfarin Sodium 3 MG Oral Tablet Take 1 Tablet by mouth every evening. As per anti-coagulati on clinic. 100 Tablet 3 4 4:22 PM EDT 07/25/19 24 Active Aspirin 81 MG Oral Tablet Chewable Take 1 Tablet by mouth in the morning. with food.. 08/23/19 24 Active Vitron-C 65-125 MG Oral Tablet (Iron-Vitamin C 65-125 mg per tab) Take 1 Tablet by mouth in the morning. Active Vitamin D3 10 MCG (400 UNIT) Oral Tablet Chewable Take by mouth. Activ e Sodium Bicarbonate 650 MG Oral Tablet Take 2 Tablets by mouth in the morning and 2 Tablets before bedtime. 360 Tablet 3 4 1:13 PM EDT 11/20/19 Active Torsemide 20 MG Oral Tablet (Demadex) Take 2 Tablets by mouth in the morning and 2 Tablets in the evening. 360 Tablet 3 11/30/19 24 Active Potassium Chloride Candi ER 20 MEQ Oral Tablet Extended ReleaseIndicati ons:Kidney disease, chronic, stage IV (GFR 15-29 ml/min) ([facility]) Take 1 Tablet by mouth in the morning and 1 Tablet before bedtime. 120 Tablet 3 11/30/19 24 024 Discontinued documented as of this encounter (statuses as of 01/24/2024) Active Problems Patient Care Coordination No te Formatting of this note migh t be different from the original. Good connectivity [facility] for wound care [phone] Televideo if needed. Problem Noted Date Diagnosed [...] Letter in chart from [facility] podiatry they were unable to get in touch with him. Given phone number to call and make appt. He stated he is willing to do this. Assessment & Plan (07/13/2021 12:15 PM EDT): Toe ulcer present>1 month. Needs xray to rule out osteomyelitis--he will go to [facility] for xray. 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 1 [...] ICD-10 update of inactive term PLATT RESEARCH OTHER*[id number] 02/20/2007 SPINAL STENOSIS-LUMBAR 09/23/2002 Vitamin D deficiency Cervical spinal stenosis documented as of this encounter (statuses as of 01/24/2024) Resolved Problems Problem Noted Date Diagnosed Date Resolved Date Chronic kidney disease (CKD) , stage IV (severe) 09/27/2023 10/26/2023 Depression, unspecified 11/09/202104/14 Depression, unspecified 11/09/2021 1005/2022 Cellulitis of right leg 07/13/2021 1005/2022 Assessment [...] 11/17/19 23 LUMBAGO 12/24/2002 05/09/2007 LOC PRIM [id number] 12/24/200208/13 DEGENERATIVE SKIN DISORD 12/24/2002 VERTEBRAL FX [...] mRNA, LNP-s, No Pre serve, 2-Dose Series ([employer]vine[employer]) 02/16/2021,04/09/2020,03/19/2020 COVID-19, MRNA-LNP, PF, 30 M CG/0.3 mL, 12 YRS AND ABOVE, IM ([facility]) 11/16/2022 Covid-19, Mrna, Lnp-s, Pf, B [...] 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 HGB 9.7. BP WNL. Administered in JACOBY. Pt tolerated well. To return in two weeks. Discharged in stable condition. documented in this encounter Plan of Treatment Upcoming Encounters Date Type Department Care Team (Late st Contact Info) Description 01/29/2024 1:30 PM EST Laboratory Laboratory [facility] [address] [facility] [place] [phone] Kayley, Lab [address] [place] [address] 01/29/2024 2:00 PM EST Office Visit Hematology/Oncology [facility] [address] [facility] [place] [phone] Monse Coates MD [address] [place] [address] [place] [phone] 01/29/2024 2:30 PM EST Immunization/Injection Hematology/Oncology Treatment, [place] [address] [facility] [place] [phone] Kayley, Chair [address] [facility] [address] [facility] [place] [address] 02/06/2024 6:30 AM EST Anticoagulation Centralized Clinical Pharmacy Services, Ilya Lafleur [address] [place] [address] [place] [address] [place] [address] 02/20/2024 12:30 PM EST Nurse Only Ancillary [address] [place] [address] Lesteralley, Nurse [address] [place] [address] 03/08/2024 2:30 PM EST Office Visit Family Medicine [address] [place] [phone] Jocelyne Desai, [address] [place] [address] 04/16/2024 3:00 PM EST Office Visit Nephrology [address] [place] [address] Jennifer Agustin MD 200 [facility] [place] [address] 04/19/2024 3:00 PM EST Office Visit Gastroenterology [address] [place] [address] Moon Avila CRNP [address] [place] [address] Scheduled Procedures Name Priority Associated Diagnoses Date/Ti [...] this encounter Medical Devices Implanted Type Area Nursing Home Assistant Device Identifier Shelf Expiration Date Model / Serial / Lot Shaft Fibula 6cm [id number] - [id number] Implanted:Qty: 1 on 09/05/2008 [place] [facility] Tissue - Human N/A: Spine Cervical MUSCULOSKELETAL TRANSPLANT FND 04/20/2010 [id number] / [id number] / Stent Eso Gw 22x70 28965-086 - [id number] Implanted:Qty: 1 on 01/21/2008 at [place] [facility] N/A: Esophagus ALVEOLUS INC 04/12/2009 91910-113 / / [id number] Depuy Uniplate 32 Implanted:Qty: 1 on 09/05/2008 [...] [facility] N/A: Neck 1773--146 / [id number] / Plate Zach 3 Level Ti 54mm - [id number] Implanted:Qty: 1 on 05/07/2010 at [place] [facility] N/A: Neck JNJ : DEPUY SPINE [id number] 54 / / Screw Zach Const St Ti 14mm - [id number] Implanted:Qty: 4 on 05/07/2010 at [place] [facility] N/A: Neck JNJ : DEPUY SPINE [id number] 14 / / Screw 3.5x14 Mntr Fa [id number] - [id number] Implanted:Qty: 8 on 05/07/2010 at [place] [facility] N/A: Spine Cervical JNJ : ETHICON CARDIOVATIONS [id number] / / Jarrell [id number] - [id number] Implanted:Qty: 1 on 05/07/2010 at [place] [facility] N/A: Spine Cervical JNJ : ETHICON CARDIOVATIONS [id number] / / Screw Inner Mntr [id number] - [id number] Implanted:Qty: 8 on 05/07/2010 at [place] [facility] N/A: Spine Cervical JNJ : ETHICON CARDIOVATIONS [id number] / / Envista Intraocular Lens Implanted:Qty: 1 on 03/10/2022 by Liang Marshall MD at OR [facility] Right: Eye BAUSCH & LOMB 08/13/2023 [id number] / [id number] / [id number] Envista Intraocular Lens Implanted:Qty: 1 on 03/24/2022 by Liang Marshall MD at OR [facility] Left: Eye BAUSCH & LOMB 07/13/2024 [id number] / [id number] / [id number] documented as of this encounter Visit Diagnoses Diagnosis Right great [...] limited to breakdown of skin (HCC)- Primary 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)- Primary Iron deficiency anemia due to chronic blood loss Iron deficiency anemia secondary to blood loss (chronic) documented in this encounter Administered Medications Inactive Administered Medications - up to 3 most recent administrations Medication Order MAR Action Action Date Dose Rate Site Epoetin Sam-epbx (Retacrit) 31664 UNIT/ML inj 20,000 Units 20,000 Units, Subcutaneous, ONCE, On 12/18/23 at 1400, For 1 dose, If hgb <11.0Indications:Anemi a due to stage 4 chronic kidney disease (HCC),Iron deficiency anemia due to chronic blood loss Given 12/18/2023 1:53 PM EST 20,000 Units Arm Right Upper documented in this encounter Advance Directives Documents on File Type Date Recorded 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 No Care Teams Nipping Machine Operator Relationship Specialty Start Date End Date Jocelyne Desai DO [address] [place] [address] [place] [address] PCP - General Internal Medicine 11/09/16 documented as of this encounter
--- OUTSIDE RECORDS SUMMARY | 2024-01-29 17:41 | External Medical Summary | Summary of Care ---
Author Name Unknown Organization [facility] Address [address] [facility] [place] [address] Phone [phone] Care Team Providers Care Museum Director Name Role Phone Jocelyne Desai DO Primary Care Provider [phone] Reason for Visit * Reason Onset Date Comments Advice 01/24/2024 Encounter Details Date Type Department Care Team ([facility] st Contact Info) Description 01/24/2024 Telephone Family Medicine [address] [phone] Jocelyne Desai DO [address] [place] [address] [place] [address] Advice Allergies No known [...] disease, chronic, stage IV (GFR 15-29 ml/min) ([facility]) Take 1 Tablet by mouth in the morning. 4 Active Calcitriol 0.5 MCG Oral Capsule (Rocaltrol)Indic ations:Kidney disease, chronic, stage IV (GFR 15-29 ml/min) ([facility]),Hypocalcem ia Take 1 Capsule by mouth in the morning. 30 Capsule 5 4 Active documented as of this encounter (statuses as of 01/24/2024) Active Problems Patient Care Coordination No te Formatting of this note migh t be different from the original. Good connectivity [facility] for wound care [phone] Televideo if needed. Problem Noted Date Diagnosed [...] rule out osteomyelitis--he will go to [facility] for x[facility]. 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 She said pt normally calls if he's not home and they did not get a call. Caller was transferred to [facility] at the nurse line. documented in this encounter Plan of Treatment Upcoming Encounters Date Type Department Care Team (Late st Contact Info) Description 01/29/2024 1:30 PM EST Laboratory Laboratory [facility] [address] [place] [phone] [place], Lab [address]enery [address] [place] [address] 01/29/2024 2:00 PM EST Office Visit Hematology/Oncology [facility] [address] [place] [phone] Monse Coates MD [address] [place] [address] [place] [phone] 01/29/2024 2:30 PM EST Immunization/Injection Hematology/Oncology Treatment, [place] [address] [facility] [place] [phone] Kayley, Chair 7 Hem Onc Scene [address] [facility] [place] [address] 02/06/2024 6:30 AM EST Anticoagulation Centralized Clinical Pharmacy Services, [address] [place] [address] [place] [address] 02/20/2024 12:30 PM EST Nurse Only Ancillary [address] [place] [address] Marleeey, Nurse [address] [place] [address] 03/08/2024 2:30 PM EST Office Visit Family Medicine [address] [place] [phone] Jocelyne Desai[address] [place] [address] 04/16/2024 3:00 PM EST Office Visit Nephrology [address] [place] [address] Jennifer Agustin MD [address] [place] [address] 04/19/2024 3:00 PM EST Office Visit Gastroenterology [address] [place] [address] Moon Avila, CERTIFIED WELDER [address] [place] [address] Scheduled Procedures Name Priority Associated Diagnoses Date/Ti [...] 02/17/2024 02/16/2023, 02/09/2022, 02/08/2021 HbA1c 02/23/2024 08/23/2023, 10/05/2022, 11/09/2022, Additional history exists GFR 07/19/2024 01/19/2024, [...] this encounter Medical Devices Implanted Type Area Form Block Maker Device Identifier Shelf Expiration Date Model / Serial / Lot Shaft Fibula 6cm [id number] - [id number] Implanted:Qty: 1 on 09/05/2008 at [place] [facility] Tissue - Human N/A: Spine Cervical MUSCULOSKELETAL TRANSPLANT FND 04/20/2010 [id number] / [id number] 0P / Stent Eso Gw 22x70 78516-314 - [id number] Implanted:Qty: 1 on 01/21/2008 at [place] [facility] N/A: Esophagus ALVEOLUS INC 04/12/2009 19653-194 / / [id number] Depuy Uniplate 32 Implanted:Qty: 1 on 09/05/2008 [...] Plate Zach 3 Level Ti 54mm - [id number] Implanted:Qty: 1 on 05/07/2010 at [place] [facility] N/A: Neck JNJ : DEPUY SPINE [id number] / / Screw Zach Const St Ti 14mm - [id number] Implanted:Qty: 4 on 05/07/2010 at [place] [facility] N/A: Neck JNJ : DEPUY SPINE [id number] 14 / / Screw 3.5x14 Mntr Fa [id number] - [id number] Implanted:Qty: 8 on 05/07/2010 at [place] [facility] N/A: Spine Cervical JNJ : ETHICON CARDIOVATIONS [id number] / / Jarrell [id number] - [id number] Implanted:Qty: 1 on 05/07/2010 at [place] [facility] N/A: Spine Cervical JNJ : ETHICON CARDIOVATIONS [id number] / / Screw Inner Mntr [id number] - [id number] Implanted:Qty: 8 on 05/07/2010 at [place] [facility] N/A: Spine Cervical JNJ : ETHICON CARDIOVATIONS [id number] / / Envista Intraocular Lens Implanted:Qty: 1 on 03/10/2022 by Liang Marshall MD at OR [facility] Right: Eye BAUSCH & LOMB 08/13/2023 [id number] / [id number] / [id number] Envista Intraocular Lens Implanted:Qty: 1 on 03/24/2022 by Liang Marshall MD at OR [facility] Left: Eye BAUSCH & LOMB 07/13/2024 [id number] / [id number] / [id number] documented as of this encounter Advance Directives Documents on File Type Date Recorded Patient Funeral Counselor Expl srinivas ARREOLA 01/26/2021 [place] OR [facility] FOR LIFE-SUSTAINING TREATMENT * [...] Power of Attor andrew? No Care Teams Museum Director Relationship Specialty Start Date End Date Jocelyne Desai DO [address] [place] [address] [place] [address] PCP - General Internal Medicine 11/09/16 documented as of this encounter
--- OUTSIDE RECORDS SUMMARY | 2024-01-29 17:41 | External Medical Summary | Summary of Care ---
Author Name Unknown Organization [facility] Address [address] [facility] [place] [address] Phone [phone] Care Team Providers Care County Historian Name Role Phone Jocelyne Desai Primary Care Provider Reason for Visit * Reason Onset Date Comments Appointment 01/19/2024 Schedule EUS and colonoscopy Encounter Details Date Type Department Care Team (Late st Contact Info) Description 01/19/2024 Telephone Gastroenterology [address] [place] [address] Moon Avila CRNP [address] [place] [address] Appointment (Schedule EUS and colonoscopy) Allergies No known active allergiesdocumented as of this encounter (statuses as of 01/23/2024) Medications ACETAMINOPHEN 500 MG PO TABS 2 [...] disease, chronic, stage IV (GFR 15-29 ml/min) ([facility]) Take 1 Tablet by mouth in the morning. 4 Active Calcitriol 0.5 MCG Oral Capsule (Rocaltrol)Indic ations:Kidney disease, chronic, stage IV (GFR 15-29 ml/min) ([facility]),Hypocalcem ia Take 1 Capsule by mouth in the morning. 30 Capsule 5 4 Active documented as of this encounter (statuses as of 01/23/2024) Active Problems Patient Care Coordination No te Formatting of this note migh t be different from the original. Good connectivity [facility] for wound care [phone] Televideo if needed. Problem Noted Date Diagnosed [...] to rule out osteomyelitis--he will go to [facility] for xray. 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 [...] ICD-10 update of inactive term PLATT RESEARCH OTHER*[id number] 02/20/2007 SPINAL STENOSIS-LUMBAR 09/23/2002 Vitamin D deficiency Cervical spinal stenosis documented as of this encounter (statuses as of 01/23/2024) Resolved Problems Problem Noted Date Diagnosed Date [...] [place] office early next week will need [facility] provider recheck Multiple and [...] 02/27/2003 11/17/19 LUMBAGO 12/24/2002 05/09/2007 LOC PRIM [id number] 12/24/200208/13 DEGENERATIVE SKIN DISORD 12/24/2002 VERTEBRAL FX [...] as of this encounter (statuses as of 01/23/2024) Immunizations Name Administration Dates Next Due COVID-19 [...] 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 documented in this encounter Plan of Treatment Upcoming Encounters Date Type Department Care Team (Late st Contact Info) Description 01/29/2024 1:30 PM EST Laboratory Laboratory [facility] [address] [facility] [place] [phone] Kay[place], Lab [facility] [address] [facility] [place] [address] 01/29/2024 2:00 PM EST Office Visit Hematology/Oncology [facility] [address] [facility] [place] [phone] Monse Coates MD [address] [place], [place] [address] [phone] 01/29/2024 2:30 PM EST Immunization/Injection [facility]ematology[facility] [phone] Kayley, Chair 7 Hem Onc [facility] [address] [facility] [place] [address] 02/06/2024 6:30 AM EST Anticoagulation Centralized Clinical Pharmacy Services, Ilya Lafleur [address] [place] [address] [place] [address] [place] [address] 02/20/2024 12:30 PM EST Nurse Only Ancillary [address] [place] [address] Marleeey, Nurse [address] [place] [address] 03/08/2024 2:30 PM EST Office Visit Family Medicine [address] [place] [phone] Lloyd Jocelyne Briggs[address] [place] [address] 04/16/2024 3:00 PM EST Office Visit Nephrology [address] [place] [address] Jennifer Agustin MD [address] [facility] [address] 04/19/2024 3:00 PM EST Office Visit Gastroenterology [address] [place] [address] Moon Avila CRNP [address] [place] [address] Scheduled Procedures Name Priority Associated Diagnoses Date/Ti [...] this encounter Medical Devices Implanted Type Area Top Knitter Device Identifier Shelf Expiration Date Model / Serial / Lot Shaft Fibula 6cm [id number] - [id number] Implanted:Qty: 1 on 09/05/2008 at [place] [facility] Tissue - Human N/A: Spine Cervical MUSCULOSKELETAL TRANSPLANT FND 04/20/2010 [id number] / [id number] 0P / Stent Eso Gw 22x70 [id number] - [id number] Implanted:Qty: 1 on 01/21/2008 at OR [facility] N/A: Esophagus [employer] 04/12/2009 [id number] / / [id number] Depuy Uniplate 32 Implanted:Qty: 1 on 09/05/2008 [...] [facility] N/A: Neck 1773-06-146 / 1773-06-146 / Plate Zach 3 Level Ti 54mm - [id number] Implanted:Qty: 1 on 05/07/2010 at [place] [facility] N/A: Neck JNJ : DEPUY SPINE [id number] / / Screw Zach Const St Ti 14mm - [id number] Implanted:Qty: 4 on 05/07/2010 at OR [facility] N/A: Neck JNJ : DEPUY SPINE [id number] / / Screw 3.5x14 Mntr Fa [id number] - [id number] Implanted:Qty: 8 on 05/07/2010 at OR [facility] N/A: Spine Cervical JNJ : ETHICON CARDIOVATIONS [id number] / / Jarrell [id number] - [id number] Implanted:Qty: 1 on 05/07/2010 at OR [facility] N/A: Spine Cervical JNJ : ETHICON CARDIOVATIONS [id number] / / Screw Inner Mntr [id number] - [id number] Implanted:Qty: 8 on 05/07/2010 at OR [facility] N/A: Spine Cervical JNJ : ETHICON CARDIOVATIONS [id number] / / Envista Intraocular Lens Implanted:Qty: 1 on 03/10/2022 by Liang Marshall MD at OR [facility] Right: Eye BAUSCH & LOMB 08/13/2023 [id number] / [id number] / [id number] Envista Intraocular Lens Implanted:Qty: 1 on 03/24/2022 by Liang Marshall MD at OR [facility] Left: Eye BAUSCH & LOMB 07/13/2024 [id number] / [id number] / [id number] documented as of this encounter Advance Directives Documents on File Type Date Recorded 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 No Care Teams County Historian Relationship Specialty Start Date End Date Jocelyne Desai DO [address] [place] [address] [place] [address] PCP - General Internal Medicine 11/09/16 documented as of this encounter
--- OUTSIDE RECORDS SUMMARY | 2024-01-29 17:41 | External Medical Summary | Summary of Care ---
Author Name Unknown Organization [facility] Address [address] [facility] [address] Phone [phone] Care Team Providers Care Sampler Ovens Name Role Phone Jocelyne Desai DO Primary Care Provider + [phone] Reason for Visit * Reason Comments Infusion Monoferric * Episode Based Medications (Routine) - Authorized Specialty Diagnoses / Procedures Referred By Contzahida t Referred To Contact Diagnoses Iron deficiency anemia due to chronic blood loss 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) Procedures SD INJ. FE DERISOMALTOSE 10 MG Nichelle Booker CRNP [address] [facility] [place] [address] Phone: tel: fax: Hematology/Oncology Treatment, [address] [address] Phone: tel: fax: Referral ID Status Reason Start Date Expiration Date V isits Requested Visits Authorized [id number] Authorized 11/03/2023 02/12/2099 [id number] Encounter Details Date Type Department Care Team (Latest Contact Info) Description 01/23/2024 2:00 PM EST Hem/Onc Treatment Hematology/Oncology Treatment, [address] [address] Kayley Chair 9 Hem Onc [address] [address] Iron deficiency anemia due to chronic blood loss*; 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); Weight loss; Atrophy of pancreas Allergies No known active allergiesdocumented as of [...] 360 Tablet 3 11/30/2023 1:13 PM EDT Active Torsemide 20 MG Oral Tablet (Demadex) [...] disease, chronic, stage IV (GFR 15-29 ml/min) ([facility]) Take 1 Tablet by mouth in the morning. Active Calcitriol 0.5 MCG Oral Capsule (Rocaltrol)Indic ations:Kidney disease, chronic, stage IV (GFR 15-29 ml/min) ([facility]),Hypocalcem ia Take 1 Capsule by mouth in the morning. 30 Capsule 5 Active documented as of this encounter (statuses as of 01/23/2024) Active Problems Patient Care Coordination No te Formatting of this note migh t be different from the original. Good connectivity [facility] for wound care [phone] Televideo if needed. Problem Noted Date Diagnosed [...] to rule out osteomyelitis--he will go to [facility] for xray. 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 Not on file Not on file Not on file Not on file 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 IV access discontinued; site cleaned and bandaged. Patient instructedto remove coban wrap after 20 minutes. Patient discharged in stable condition and will return in 1 week. * Zahra Grajeda LPN - 01/23/2024 3:07 PM EST 1430: Pt arrived for Monoferric infusion. PIV in RFA. Pt tolerated well. Pt reports he's very shortof breath and fatigued. Labs drawn. Pt tolerated well. Pt aware of 30 minute wait. Pt has no complaints at this time. Patient instructed on use of heat and massage functions where applicable. Patient shown how to operate the heat function of the chair and to alert nursing staff if the chair feels too warm. Patient instructed on the risk of potential rueda while using the heat function. 1505: HGB 8.8. Pt aware. documented in this encounter Plan of Treatment Upcoming Encounters Date Type Department Care Team (Late st Contact Info) Description 01/29/2024 1:30 PM EST Laboratory Laboratory [facility] [place] [address] [place] [address] Kayley, Lab [address] [place] [address] 01/29/2024 2:00 PM EST Office Visit Hematology/Oncology [facility] [place] [address] [place] [phone] Monse Coates MD [address] [place] [address] [place] [address] 01/29/2024 2:30 PM EST Immunization/Injection Hematology/Oncology Treatment, [place] [address] [facility] [place] [address] Kayley, Chair 7 Hem Onc [address] [place] [address] 02/06/2024 6:30 AM EST Anticoagulation Centralized Clinical Pharmacy Services, Ilya Lafleur [address] [place] [address] [place] [address] [place] [address] 02/20/2024 12:30 PM EST Nurse Only Ancillary [address] [place] [address] [place], Nurse [address] [place] [address] 03/08/2024 2:30 PM EST Office Visit Family Medicine [address] [place] [phone] Jocelyne Desai[address] [place] [address] 04/16/2024 3:00 PM EST Office Visit Nephrology [address] [place] [address] Jennifer Agustin MD [address] [place] [address] 04/19/2024 3:00 PM EST Office Visit Gastroenterology [address] [place] [address] Moon Avila CRNP [address] [place] [address] Pending Results Name Type Priority Associated Diagnoses Date /Time PANCREATIC ELASTASE-1 Lab Routine Weight loss Atrophy of pancreas 01/23/2024 2:22 PM EST Scheduled Procedures Name Priority Associated [...] this encounter Medical Devices Implanted Type Area Advertising Internship Device Identifier Shelf Expiration Date Model / Serial / Lot Shaft Fibula 6cm [id number] - [id number] Implanted:Qty: 1 on 09/05/2008 at [place] [facility] Tissue - Human N/A: Spine Cervical MUSCULOSKELETAL TRANSPLANT FND 04/20/2010 [id number] / [id number] 0P / Stent Eso Gw 22x70 [id number] - [id number] Implanted:Qty: 1 on 01/21/2008 at [place] [facility] N/A: Esophagus ALVEOLUS INC 04/12/2009 10620-116 / / [id number] Depuy Uniplate 32 Implanted:Qty: 1 on 09/05/2008 at [place] [facility] N/A: Spine Cervical TAMMY & TAMMY DEPUY 1896-03-302 / / Depuy Uniplate Screw 14mm Implanted:Qty: 2 on 09/05/2008 at OR [facility] N/A: Spine Cervical TAMMY & TAMMY DEPUY 1896--017 / / Depuy Lordotic Bengal Cage Implanted:Qty: 1 on 05/07/2010 at OR [facility] N/A: Neck 1773-06-146 / 1773-06-146 / Plate Zach 3 Level Ti 54mm - [id number] Implanted:Qty: 1 on 05/07/2010 at OR [facility] N/A: Neck JNJ : DEPUY SPINE [id number] / / Screw Zach Const St Ti 14mm - [id number] Implanted:Qty: 4 on 05/07/2010 at OR [facility] N/A: Neck JNJ : DEPUY SPINE [id number] 14 / / Screw 3.5x14 Mntr Fa [id number] - [id number] Implanted:Qty: 8 on 05/07/2010 at OR [facility] N/A: Spine Cervical JNJ : ETHICON CARDIOVATIONS [id number] / / Jarrell [id number] - [id number] Implanted:Qty: 1 on 05/07/2010 at [place] [facility] N/A: Spine Cervical JNJ : ETHICON CARDIOVATIONS [id number] / / Screw Inner Mntr [id number] - [id number] Implanted:Qty: 8 on 05/07/2010 at [place] [facility] N/A: Spine Cervical JNJ : ETHICON CARDIOVATIONS [id number] / / Envista Intraocular Lens Implanted:Qty: 1 on 03/10/2022 by Liang Marshall MD at OR [facility] Right: Eye BAUSCH & LOMB 08/13/2023 [id number] / [id number] / [id number] Envista Intraocular Lens Implanted:Qty: 1 on 03/24/2022 by Liang Marshall MD at OR [facility] Left: Eye BAUSCH & LOMB 07/13/2024 [id number] / [id number] / [id number] documented as of this encounter Procedures Procedure Name Priority Date/Time Associated Diagnosis Comments DIFFERENTIAL, AUTOMATED STAT 01/23/2024 2:20 PM EST 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) Iron deficiency anemia due to chronic blood loss CBC STAT 01/23/2024 2:20 PM EST 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) Iron deficiency anemia due to chronic blood loss CBC STAT 01/23/2024 2:20 PM EST 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) Iron deficiency anemia due to chronic blood loss documented in this encounter Results * (ABNORMAL) DIFFERENTIAL, AUTOMATED (01/23/2024 2:20 PM EST) Pathologist [facility] WBC 4.36 4.00 - 10.80 K/uL 01/23/2024 2:42 PM EST [facility] 56-02 Neutrophils % 73.5 40.0 - 75.0 % 01/23/2024 2:42 PM EST [facility] 56-02 Lymphocytes % 15.6(L) 18.0 - 42.0 % 01/23/2024 2:42 PM EST [facility] 56-02 Monocytes % 9.6 1.0 - 11.0 % 01/23/2024 2:42 PM EST [facility] 56-02 Eosinophils % 1.1 0.0 - 6.0 % 01/23/2024 2:42 PM EST [facility] 56-02 Basophils % 0.2 0.0 - 2.0 % 01/23/2024 2:42 PM EST [facility] 56-02 Absolute Neutrophils 3.20 1.80 - 7.70 K/uL 01/23/2024 2:42 PM EST [facility] 56-02 Absolute Lymphocytes 0.68(L) 1.00 - 4.80 K/ul 01/23/2024 2:42 PM EST [facility] 56-02 Absolute Monocytes 0.42 0.00 - 1.10 K/uL 01/23/2024 2:42 PM EST [facility] 56-02 Absolute Eosinophils 0.05 0.00 - 0.70 K/uL 01/23/2024 2:42 PM EST [facility] 56-02 Absolute Basophils 0.01 0.00 - 0.20 K/uL 01/23/2024 2:42 PM EST [facility] 56-02 Blood Venous blood specimen / Unknown Venipuncture / Unknown 01/23/2024 2:20 PM EST 01/23/2024 2:36 PM EST Monse Coates MD LAB BLOOD OR DERABLES Final Result [facility] [address] [place] [address] * (ABNORMAL) CBC (01/23/2024 2:20 PM EST) Pathologist [facility] WBC 4.36 4.00 - 10.80 K/uL 01/23/2024 2:42 PM [facility] 56 RBC 3.15 4.50 - 5.25 M/uL 01/23/2024 2:[address] HGB 8.6(L) 14.0 - 16.8 g/dL 01/23/2024 2:42 PM [facility] 56 HCT 28.1(L) 40.0 - 48.4 % 01/23/2024 2:42 PM [facility] 56 MCV 89.2 82.0 - 99.5 fL 01/23/2024 2:[address] MCH 27.3 27.0 - 34.0 pg 01/23/2024 2:[address] MCHC 30.6 32.0 - 36.0 g/dL 01/23/2024 2:[address] RDW 16.5 11.5 - 15.5 % 01/23/2024 2:42 PM [facility] 56 PLT 195 140 - 400 K/uL 01/23/2024 2:42 PM [facility] 56 MPV 10.7 6.6 - 11.1 fL 01/23/2024 2:42 PM [facility] 56 Blood Venous blood specimen / Unknown Venipuncture / Unknown 01/23/2024 2:20 PM EST 01/23/2024 2:36 PM EST Monse Coates MD LAB BLOOD OR DERABLES Final Result [facility] [address]- [address] [place] [address] documented in this encounter Visit Diagnoses Diagnosis [...] limited to breakdown of skin (HCC)- Primary Iron deficiency anemia due to chronic blood loss- Primary Iron deficiency anemia secondary to blood loss (chronic) 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) Weight loss Loss of weight Atrophy of pancreas Other specified disease of pancreas documented in this encounter Administered Medications Active Administered Medications - up to 3 most recent administrations Medication Order MAR Action Action Date Dose Rate Site diphenhydrAMINE (Benadryl) inj 50 mg 50 mg, IV Push, ONCE PRN Other, Hypersensitivity Reaction, Starting on Mon01/23/24 at 1425, Until Mon01/24/24 at 1424, For 24 hoursIndications: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),Iron deficiency anemia due to chronic blood loss EPINEPHrine 1 MG/ML inj 0.3 mg 0.3 mg, Intramuscular, ONCE PRN Other, Hypersensitivity Reaction or Anaphylaxis, Starting on Mon01/23/24 at 1425, Until Mon01/24/24 at 1424, For 24 hoursIndications: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),Iron deficiency anemia due to chronic blood loss hEParin 100 UNIT/ML Lock Flush inj 500 Units 500 Units (5 mL), IV Lock, PRN Other, IV Flush, Starting on Mon01/23/24 at 1425, Until Mon01/24/24 at 1424, For 24 hours, Do not flush if lock, PICC, or central line not in place; IV infusing or unable to flush.Indications: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),Iron deficiency anemia due to chronic blood loss Hydrocortisone Sod Suc (PF) (Solu-Cortef) inj 100 mg 100 mg, IV Push, ONCE PRN Other, Hypersensitivity Reaction, Starting on Mon01/23/24 at 1425, Until Mon01/24/24 at 1424, For 24 hoursIndications: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),Iron deficiency anemia due to chronic blood loss NSS infusion Intravenous, at 50 mL/hr, PRN, Starting on Mon01/23/24 at 1530, Until Discontinued, Maintenance lineIndications: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),Iron deficiency anemia due to chronic blood loss Start Infusion 01/23/2024 2:37 PM EST 50 mL/hr oxygen GAS Inhalation, OXYGEN, First dose on Mon01/23/24 at 1600, Until Discontinued, Device/Managed by: Low Flow Device, Goal SPO2 (%): 91-95, Starting Device: Nasal Cannula, Initial Flow Rate (LPM): 2, Lowest Support: Nasal Cannula: Flow 0-6 LPM. Titrate up/down by 1 LPM., Higher Support: Non-Rebreather (NRB) Mask: Minimum of 10 LPM. Titrate to maintain bag inflation., Titration Interval: Q2 minutes and as needed., Notify Provider: For sudden DECREASE in resting SPO2 to less than 85% and when escalating delivery device., Wean patient off Oxygen when the oxygen saturation is greater than or equal to 93%Indications: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),Iron deficiency anemia due to chronic blood loss sodium chloride 0.9 % flush central line 10 mL 10 mL, IV Push, PRN Other, IV Flush, Starting on Mon01/23/24 at 1425, Until Mon01/24/24 at 1424, For 24 hours, Do not flush if lock, PICC, or central line not in place; IV infusing or unable to flush.Indications: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),Iron deficiency anemia due to chronic blood loss Inactive Administered Medications - up to 3 most recent administrations Medication Order MAR Action Action Date Dose Rate Site Ferric derisomaltose (Monoferric) 1,000 mg in NSS 250 mL ivpb 1,000 mg, IV Piggyback, ONCE, 1 dose, On Mon01/23/24 at 1500, Administer over 30 Minutes, DOSING GUIDELINES: For patient weight LESS THAN 50 kg: Dose 20 mg/kg For patient weight 50 Kg or greater: Dose 1000 mgIndications: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),Iron deficiency anemia due to chronic blood loss Start Infusion 01/23/2024 2:38 PM EST 1,000 mg 530 mL/hr documented in this encounter Advance Directives Documents on File Type Date Recorded Patient Radiology Aide Expl srinivas POL 01/26/2021 [place] [facility] [...] Power of Attor andrew? No Care Teams Sampler Ovens Relationship Specialty Start Date End Date Jocelyne Desai DO [address] [place] [address] [place] [address] PCP - General Internal Medicine 11/09/16 documented as of this encounter
--- OUTSIDE RECORDS SUMMARY | 2024-01-29 17:42 | External Medical Summary ---
Author Name Unknown Address Unknown Organization K01:[facility] [address] [facility] [address] [place] [address] Laboratory Report Ordering Provider Test Date Status ENMANUEL REARDON 01/19/2024 10:20:13 Final Observation Date Value Abnormality Reference (Units ) Status WBC, Total 01/19/2024 10:20:13 4.44 4.00-10.80 (K/uL) Final RBC 01/19/2024 10:20:13 3.03 4.50-5.25 (M/uL) Final Hemoglobin 01/19/2024 10:20:13 8.6 Below low normal 14.0-16.8 (g/dL) Final HCT 01/19/2024 10:20:13 28.7 Below low normal 40.0-48.4 (%) Final MCV 01/19/2024 10:20:13 94.7 82.0-99.5 (fL) Final MCH 01/19/2024 10:20:13 28.4 27.0-34.0 (pg) Final MCHC 01/19/2024 10:20:13 30.0 32.0-36.0 (g/dL) Final RDW 01/19/2024 10:20:13 16.8 11.5-15.5 (%) Final Platelets 01/19/2024 10:20:13 167 140-400 (K/uL) Final MPV 01/19/2024 10:20:13 11.7 6.6-11.1 (fL) Final Nucleated erythrocytes/100 leukocytes [Ratio] in Blood by Automated count 01/19/2024 10:20:13 0 <=0 (/100 WBCs) Final Performing Location [facility] [place] [address] [place] [address]
--- OUTSIDE RECORDS SUMMARY | 2024-01-29 17:42 | External Medical Summary ---
Author Name Unknown Address Unknown Organization K01:[facility] [place] - [address] [place] [address] Laboratory Report Ordering Provider Test Date Status AYLA FLOR 01/19/2024 10:20:13 Final Observation Date Value Abnormality Reference (Units ) Status TSH 01/19/2024 10:20:13 5.13 Above high normal 0. 27-4.20 (uIU/mL) Final Performing Location LABORATORY C - [address] [place] [address]
--- OUTSIDE RECORDS SUMMARY | 2024-01-29 17:42 | External Medical Summary ---
Author Name Unknown Address Unknown Organization K01:LABORATORY [facility] [place] - [address] [facility] [address] Laboratory Report Ordering Provider Test Date Status ENMANUEL REARDON 01/19/2024 10:20:13 Final Observation Date Value Abnormality Reference (Units ) Status SYNC LEUKOCYTES IN BLOOD BY AUTOMATED COUNT 01/19/2024 10:20:13 4.44 4.00-10.80 (K/uL) Final Segs 01/19/2024 10:20:13 61.5 40.0-75.0 (%) Final Lymphs % 01/19/2024 10:20:13 25.2 18.0-42.0 (%) Final Monos 01/19/2024 10:20:13 9.7 1.0-11.0 (%) Final Eosinophils 01/19/2024 10:20:13 3.2 0.0-6.0 (%) Final Basos 01/19/2024 10:20:13 0.2 0.0-2.0 (%) Final Immature Granulocyte, Percent 01/19/2024 10:20:13 0.2 0.0-2.0 (%) Final Absolute Segs 01/19/2024 10:20:13 2.73 1.80-7.70 (K/uL) Final Lymphs, absolute 01/19/2024 10:20:13 1.12 1.00-4.80 (K/ul) Final Monos, Abs 01/19/2024 10:20:13 0.43 0.00-1.10 (K/uL) Final Eos, Abs 01/19/2024 10:20:13 0.14 0.00-0.70 (K/uL) Final Basos, Abs 01/19/2024 10:20:13 0.01 0.00-0.20 (K/uL) Final Immature Granulocytes, Number 01/19/2024 10:20:13 0.01 0.00-0.20 (K/uL) Final Performing Location LABORATORY [facility] - [facility] [address] [place] [address]. [facility] [address]
--- OUTSIDE RECORDS SUMMARY | 2024-01-29 17:42 | External Medical Summary ---
Author Name Unknown Address Unknown Organization K01:LABORATORY [facility] [place] - [address] [place] [address] Laboratory Report Ordering Provider Test Date Status CARONAKIKOKRISHMARV 01/19/2024 10:20:13 Final Observation Date Value Abnormality Reference (Units ) Status Iron 01/19/2024 10:20:13 18 Below low normal 45-176 (ug/dL) Final Iron-binding capacity 01/19/2024 10:20:13 298 250-425 (ug/dL) Final Transferrin Sat % 01/19/2024 10:20:13 6 Below low normal 15-55 (%) Final Performing Location LABORATORY [facility] [place] - [address] [place] [address]
--- OUTSIDE RECORDS SUMMARY | 2024-01-29 17:42 | External Medical Summary ---
Author Name Unknown Address Unknown Organization K01:LABORATORY C - [address] [place] [address] Laboratory Report Ordering Provider Test Date Status KUSHAL DOUGHERTY 01/19/2024 10:20:13 Final Observation Date Value Abnormality Reference (Units ) Status Phosphate 01/19/2024 10:20:13 7.1 Above high normal 2. 5-4.8 (mg/dL) Final Performing Location LABORATORY [facility] - [address] [place] [address]
--- OUTSIDE RECORDS SUMMARY | 2024-01-29 17:42 | External Medical Summary ---
Author Name Unknown Address Unknown Organization : Laboratory Report Ordering Provider Test Date Status AYLA FLOR 01/19/2024 10:20:13 Final Observation Date Value Abnormality Reference (Units ) Status Vitamin A, level 01/19/2024 10:20:13 58 38- 98 (mcg/dL) Final Vitamin supplementation with in 24 hours prior to
blood draw may affect the accuracy of the results.
This test was developed and its analytical performance
characteristics have been determined by [employer] [place], [place]. It has
not been cleared or approved by the U.S. Food and Drug
Administration. This assay has been validated pursuant
to the CLIA regulations and is used for clinical
purposes.

Test Performed at:
[facility]
[address] [facility]
[place] [address]
Josafat Cheung M.D., Ph.D.,Director of Laboratories Performing Location
--- OUTSIDE RECORDS SUMMARY | 2024-01-29 17:42 | External Medical Summary | Summary of Care ---
Author Name Unknown Organization [facility] Address [address] [facility] [place] [address] Phone [phone] Care Team Providers Care Accountant Manager Name Role Phone Jocelyne Desai Primary Care Provider [phone] Reason for Visit * Reason Onset Date Comments Precert Future 01/15/2024 Retacrit/Monofer aneesh Encounter Details Date Type Department Care Team (Late st Contact Info) Description 01/15/2024 Telephone Hematology/Oncology [facility] [place] [address] [facility] [address] Monse Coates MD [address] [place] [address] [place] [phone] Precert Future (Retacrit/Monoferric) Allergies No known active allergiesdocumented as of this encounter (statuses as of 01/16/2024) Medications ACETAMINOPHEN 500 MG PO TABS 2 [...] mouth in the morning. with food.. Active Vitron-C 65-125 MG Oral Tablet (Iron-Vitamin [...] Then decrease to 60mg BID, Reported on 12/27/2023 Potassium Chloride Candi ER 20 MEQ Oral Tablet Extended ReleaseIndicatio ns:Kidney disease, chronic, stage IV (GFR 15-29 ml/min) ([facility]) Take 1 Tablet by mouth in the morning. 4 Active Calcitriol 0.5 MCG Oral Capsule (Rocaltrol)Indic ations:Kidney disease, chronic, stage IV (GFR 15-29 ml/min) ([facility]),Hypocalcem ia Take 1 Capsule by mouth in the morning. 30 Capsule 5 Active documented as of this encounter (statuses as of 01/16/2024) Active Problems Patient Care Coordination No te Formatting of this note migh t be different from the original. Good connectivity [facility] for wound care [phone] Televideo if needed. Problem Noted Date Diagnosed [...] rule out osteomyelitis--he will go to [facility] for xray. 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 Will treat with 7 days antibiotic. If pt cannot be reassess by Dr. Braxton office early next week will need [facility] provider recheck Multiple and open wound [...] 06/12/2006 10/13/2006 Mixed dyslipidemia 12/24/2005 12/ 9 Overview (01/20/2009): Per Lipid Taxonomy. DIAB [...] 11/17/19 23 LUMBAGO 12/24/2002 05/09/2007 LOC PRIM [id number] 12/24/200208/13 DEGENERATIVE SKIN DISORD 12/24/2002 VERTEBRAL FX [...] as of this encounter (statuses as of 01/16/2024) Immunizations Name Administration Dates Next Due COVID-19 [...] No 10/31/2023 Does the household have a [facility] source of income? 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 Scheduling: please call patient to schedule 2 hour appt "monoferric" (Dr Coates). Per Dr Wiseman, requesting this for next week. If patient asks, this cannot be same day as retacrit injection appt per insurance. Thanks! * Telephone Encounter - Josafat Jeffers RN - 01/15/2024 3:12 PM EST Received orders to increase Retacrit from 20,000U to 40,000U starting today. Stat message sent to precert and this RN advised that auth is valid for the 40,000U dose, ok to proceed with injection today. Awaiting authorization for 2nd dose of Monoferric. Per Dr. Coates order, would like patient to receive next week. documented in this encounter Plan of Treatment Upcoming Encounters Date Type Department Care Team (Late st Contact Info) Description 01/19/2024 9:00 AM EST Office Visit Gastroenterology [address] [place] [address] Moon Avila, OLEG [address] [place] [address] 01/23/2024 2:00 PM EST Hem/Onc Treatment Hematology/Oncology Treatment, [place] [address] [place] [address] Kayley, Chair 9 Hem Onc Scenery [address] [place] [address] 01/29/2024 1:30 PM EST Laboratory Laboratory [facility] [place] [address] [place] [phone] [place], Lab Scenery [address] [place] [address] 01/29/2024 2:00 PM EST Office Visit Hematology/Oncology [facility] [place] [facility] [place] [phone] Monse Coates MD [address] [place] [address] 01/29/2024 2:30 PM EST Immunization/Injecti on Hematology/Oncology Treatment, [place] 200 [facility] [place] [phone] Kayley, Chair 7 Hem [address] [place] [address] 02/20/2024 12:30 PM EST Nurse Only Ancillary [address] [place] [address] [place], Nurse [address] [place] [address] 03/08/2024 2:30 PM EST Office Visit Family Medicine [address] [place] [phone] [address] [place] [address] 04/16/2024 3:00 PM EST Office Visit Nephrology [address] [place] [address] Jennifer Agustin MD [address] [place] [address] Scheduled Procedures Name Priority Associated Diagnoses Date/Ti [...] 02/17/2024 02/16/2023, 02/09/2022, 02/08/2021 HbA1c 02/23/2024 08/23/2023, 1005/2022, 11/09/2022, Additional history exists GFR 07/03/2024 01/04/2024, 11/14, 11/27/2023, Additional history exists Depression Screening 10/30/2024 10/31/2023 [...] this encounter Medical Devices Implanted Type Area Bill Cutter Device Identifier Shelf Expiration Date Model / Serial / Lot Shaft Fibula 6cm [id number] - [id number] Implanted:Qty: 1 on 09/05/2008 at OR [facility] Tissue - Human N/A: Spine Cervical MUSCULOSKELETAL TRANSPLANT FND 04/20/2010 [id number] / [id number] / Stent Eso Gw 22x70 [id number] - [id number] Implanted:Qty: 1 on 01/21/2008 at OR [facility] N/A: Esophagus [employer]US INC 04/12/2009 [id number] / / [id number] Depuy Uniplate 32 Implanted:Qty: 1 on 09/05/2008 [...] Plate Zach 3 Level Ti 54mm - [id number] Implanted:Qty: 1 on 05/07/2010 at OR [facility] N/A: Neck JNJ : DEPUY SPINE [id number] / / Screw Zach Const St Ti 14mm - [id number] Implanted:Qty: 4 on 05/07/2010 at OR [facility] N/A: Neck JNJ : DEPUY SPINE [id number] / / Screw 3.5x14 Mntr Fa [id number] - [id number] Implanted:Qty: 8 on 05/07/2010 at OR [facility] N/A: Spine Cervical JNJ : ETHICON CARDIOVATIONS [id number] / / Jarrell [id number] - [id number] Implanted:Qty: 1 on 05/07/2010 at OR [facility] N/A: Spine Cervical JNJ : ETHICON CARDIOVATIONS [id number] / / Screw Inner Mntr [id number] - [id number] Implanted:Qty: 8 on 05/07/2010 at OR [facility] N/A: Spine Cervical JNJ : ETHICON CARDIOVATIONS [id number] / / Envista Intraocular Lens Implanted:Qty: 1 on 03/10/2022 by Liang Marshall MD at OR [facility] Right: Eye BAUSCH & LOMB 08/13/2023 [id number] / [id number] / [id number] Envista Intraocular Lens Implanted:Qty: 1 on 03/24/2022 by Liang Marshall MD at OR [facility] Left: Eye BAUSCH & LOMB 07/13/2024 [id number] / [id number] / [id number] documented as of this encounter Advance Directives Documents on File Type Date Recorded Patient Big 6 Dealer Expl anation POLST 01/26/2021 [place] OR [facility]-SUSTAINING TREATMENT * No Code [...] Power of Attor andrew? No Care Teams Accountant Manager Relationship Specialty Start Date End Date DesaiJocelyne victor DO [address] [place] [address] [place] [phone] PCP - General Internal Medicine 11/09/16 documented as of this encounter
--- OUTSIDE RECORDS SUMMARY | 2024-01-29 17:42 | External Medical Summary ---
Author Name Unknown Address Unknown Organization K09:[facility] [place] [address] Laboratory Report Ordering Provider Test Date Status ENMANUEL REARDON 01/23/2024 14:20:22 Final Observation Date Value Abnormality Reference (Units ) Status SYNC LEUKOCYTES IN BLOOD BY AUTOMATED COUNT 01/23/2024 14:20:22 4.36 4.00-10.80 (K/uL) Final Segs 01/23/2024 14:20:22 73.5 40.0-75.0 (%) Final Lymphs % 01/23/2024 14:20:22 15.6 Below low normal 18.0-42.0 (%) Final Monos 01/23/2024 14:20:22 9.6 1.0-11.0 (%) Final Eosinophils 01/23/2024 14:20:22 1.1 0.0-6.0 (%) Final Basos 01/23/2024 14:20:22 0.2 0.0-2.0 (%) Final Absolute Segs 01/23/2024 14:20:22 3.20 1.80-7.70 (K/uL) Final Lymphs, absolute 01/23/2024 14:20:22 0.68 Below low normal 1.00-4.80 (K/ul) Final Monos, Abs 01/23/2024 14:20:22 0.42 0.00-1.10 (K/uL) Final Eos, Abs 01/23/2024 14:20:22 0.05 0.00-0.70 (K/uL) Final Basos, Abs 01/23/2024 14:20:22 0.01 0.00-0.20 (K/uL) Final Performing Location [facility] [place] [address]
--- OUTSIDE RECORDS SUMMARY | 2024-01-29 17:42 | External Medical Summary ---
Author Name Unknown Address Unknown Organization K09:LABORATORY [place] [address] Laboratory Report Ordering Provider Test Date Status ENMANUEL REARDON 01/23/2024 14:20:22 Final Observation Date Value Abnormality Reference (Units ) Status WBC, Total 01/23/2024 14:20:22 4.36 4.00-10.8 0 (K/uL) Final RBC 01/23/2024 14:20:22 3.15 4.50-5.25 (M/uL) Final Hemoglobin 01/23/2024 14:20:22 8.6 Below low normal 14 .0-16.8 (g/dL) Final HCT 01/23/2024 14:20:22 28.1 Below low normal 40. 0-48.4 (%) Final MCV 01/23/2024 14:20:22 89.2 82.0-99.5 (fL) Final MCH 01/23/2024 14:20:22 27.3 27.0-34.0 (pg) Final MCHC 01/23/2024 14:20:22 30.6 32.0-36.0 (g/dL) Final RDW 01/23/2024 14:20:22 16.5 11.5-15.5 (%) Final Platelets 01/23/2024 14:20:22 195 140-400 (K /uL) Final MPV 01/23/2024 14:20:22 10.7 6.6-11.1 ( fL) Final Performing Location LABORATORY [place] [address]
--- OUTSIDE RECORDS SUMMARY | 2024-01-29 17:42 | External Medical Summary | Summary of Care ---
Author Name Unknown Organization [facility] Address [address] [facility] [place] [address] Phone [phone] Care Team Providers Care Automobile Body Repairer Name Role Phone DesaiElissaJocelynejohn Cunninghambritany ASHTON Primary Care Provider + [phone] Reason for Visit * Reason Comments Outpatient Testing Encounter Details Date Type Department Care Team (Late st Contact Info) Description 01/19/2024 10:20 AM EST Laboratory Laboratory [address] [place] [phone] [address] [place] [address] Kidney disease, chronic, stage IV (GFR 15-29 ml/min) (HCC); 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); Iron deficiency anemia due to chronic blood loss; Weight loss Allergies No known active allergiesdocumented as of this encounter (statuses as of 01/19/2024) Medications ACETAMINOPHEN 500 MG PO TABS 2 [...] stage IV (GFR 15-29 ml/min) ([facility]) Take 1 Tablet by mouth in the morning. 4 Active Calcitriol 0.5 MCG Oral Capsule (Rocaltrol)Indic ations:Kidney disease, chronic, stage IV (GFR 15-29 ml/min) ([facility]),Hypocalcem ia Take 1 Capsule by mouth in the morning. 30 Capsule 5 Active documented as of this encounter (statuses as of 01/19/2024) Active Problems Patient Care Coordination No te Formatting of this note migh t be different from the original. Good connectivity [facility] for wound care [phone] Televideo if needed. Problem Noted Date Diagnosed [...] to rule out osteomyelitis--he will go to [facility] for xray. 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 1 [...] ICD-10 update of inactive term PLATT RESEARCH OTHER*[id number] 02/20/2007 SPINAL STENOSIS-LUMBAR 09/23/2002 Vitamin D deficiency Cervical spinal stenosis documented as of this encounter (statuses as of 01/19/2024) Resolved Problems Problem Noted Date Diagnosed Date [...] [facility] office early next week will need [facility] provider recheck Multiple and open [...] 11/17/19 23 LUMBAGO 12/24/2002 05/09/2007 LOC PRIM [id number] 12/24/200208/13 DEGENERATIVE SKIN DISORD 12/24/2002 VERTEBRAL FX [...] as of this encounter (statuses as of 01/19/2024) Immunizations Name Administration Dates Next Due COVID-19 [...] No 10/31/2023 Does the household have a [facility] source [facility] income? 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 Not on file Not on file documented as of this encounter Plan of Treatment Upcoming Encounters Date Type Department Care Team (Late st Contact Info) Description 01/23/2024 2:00 PM EST Hem/Onc Treatment Hematology/Oncology Treatment, [place] [address] [place] [address] Kayley, Chair 9 Hem Onc Scenery [address] [place] [address] 01/29/2024 1:30 PM EST Laboratory Laboratory [facility] Kayley [place] [address] [place] [phone] Kayley, Lab Scenery [address] [place] [address] 01/29/2024 2:00 PM EST Office Visit Hematology/Oncology [facility] [place] [address] [place] [phone] Monse Coates MD [address] [place] [address] [place] [phone] 01/29/2024 2:30 PM EST Immunization/Injection Hematology/Oncology Treatment, [place] [address] [place] [phone] Kayley, Chair 7 Hem Onc Scenery [address] [place] [address] 02/06/2024 6:30 AM EST Anticoagulation [facility], Ilya Lafleur [address] [place] [address] [place] [address] [facility], [address] [place] [address] 02/20/2024 12:30 PM EST Nurse Only Ancillary [address] [place] [address] [place], Nurse Annual [address] [place] [address] 03/08/2024 2:30 PM EST Office Visit Family Medicine [address] [place] [phone] Jocelyne Desai, [address] [place] [address] 04/16/2024 3:00 PM EST Office Visit Nephrology [address] [place] [address] Jennifer Agustin MD [address] [place] [address] 04/19/2024 3:00 PM EST Office Visit Gastroenterology [address] [place] [address] Moon Avila CRNP [address] [place] [address] Pending Results Name Type Priority Associated Diagnoses Date /Time PHOSPHORUS Lab Routine Kidney disease, chronic, stage IV (GFR 15-29 ml/min) (HCC) 01/19/2024 10:20 AM EST IRON SCREEN, INCLUDING TIBC Lab Routine 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) Iron deficiency anemia due to chronic blood loss 01/19/2024 10:20 AM EST CBC WITH WBC DIFFERENTIAL Lab Routine 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) 01/19/2024 10:20 AM EST COMPREHENSIVE METABOLIC PANEL Lab STAT 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) 01/19/2024 10:20 AM EST VITAMIN A (RETINOL) Lab Routine Weight loss 01/19/2024 10:20 AM EST VITAMIN E (TOCOPHEROL) Lab Routine Weight loss 01/19/2024 10:20 AM EST TSH Lab Routine Weight loss 01/19/2024 10:20 AM EST CBC Lab Routine 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) 01/19/2024 10:20 AM EST DIFFERENTIAL, AUTOMATED Lab Routine 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) 01/19/2024 10:20 AM EST Scheduled Procedures Name Priority Associated [...] 08/23/2023, 05/2022, 11/09/2022, Additional history exists GFR 07/03/2024 01/04/2024, [...] this encounter Medical Devices Implanted Type Area Parking Lot Attendant Device Identifier Shelf Expiration Date Model / Serial / Lot Shaft Fibula 6cm [id number] - [id number] Implanted:Qty: 1 on 09/05/2008 [place] [facility] [place] - Human N/A: Spine Cervical MUSCULOSKELETAL TRANSPLANT FND 04/20/2010 [id number] / [id number] / Stent Eso Gw 22x70 [id number] - [id number] Implanted:Qty: 1 on 01/21/2008 [place] [facility] N/A: Esophagus ALVEOLUS INC 04/12/2009 [id number] / / [id number] Depuy Uniplate 32 Implanted:Qty: 1 on 09/05/2008 [place] [facility] N/A: Spine Cervical TAMMY & TAMMY DEPUY 1897--302 / / Depuy Uniplate Screw 14mm Implanted:Qty: 2 on 09/05/2008 [place] [facility] N/A: Spine Cervical TAMMY & TAMMY DEPUY 1897-06-017 / / Depuy Lordotic Bengal Cage Implanted:Qty: 1 on 05/07/2010 at [place] [facility] N/A: Neck 1773--146 / [id number] / Plate Zach 3 Level Ti 54mm - [id number] Implanted:Qty: 1 on 05/07/2010 [place] [facility] N/A: Neck JNJ : DEPUY SPINE [id number] / / Screw Zach Const St Ti 14mm - [id number] Implanted:Qty: 4 on 05/07/2010 [place] [facility] N/A: Neck JNJ : DEPUY SPINE [id number] / / Screw 3.5x14 Mntr Fa [id number] - [id number] Implanted:Qty: 8 on 05/07/2010 [place] [facility] N/A: Spine Cervical JNJ : ETHICON CARDIOVATIONS [id number] / / Jarrell [id number] - [id number] Implanted:Qty: 1 on 05/07/2010 [place] [facility] N/A: Spine Cervical JNJ : ETHICON CARDIOVATIONS [id number] / / Screw Inner Mntr [id number] - [id number] Implanted:Qty: 8 on 05/07/2010 [place] [facility] N/A: Spine Cervical JNJ : ETHICON CARDIOVATIONS [id number] / / Envista Intraocular Lens Implanted:Qty: 1 on 03/10/2022 by Liang Marshall MD at OR [facility] Right: Eye BAUSCH & LOMB 08/13/2023 [id number] / [id number] / [id number] Envista Intraocular Lens Implanted:Qty: 1 on 03/24/2022 by Liang Marshall MD at OR [facility] Left: Eye BAUSCH & LOMB 07/13/2024 [id number] / [id number] / [id number] documented as of this encounter Visit Diagnoses [...] limited to breakdown of skin (HCC)- Primary Kidney disease, chronic, stage IV (GFR 15-29 ml/min) (HCC) Chronic kidney disease, Stage IV (severe) 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) Iron deficiency anemia due to chronic blood loss Iron deficiency anemia secondary to blood loss (chronic) Weight loss Loss of weight documented in this encounter Advance Directives Documents on File Type Date Recorded Patient Safety Teacher Expl anation POLST 01/26/2021 [facility]-SU[facility]ING TREATMENT * No Code (Latest [...] Power of Attor andrew? No Care Teams Automobile Body Repairer Relationship Specialty Start Date End Date Jocelyne Desai DO [address] [place] [address] [place] [address] PCP - General Internal Medicine 11/09/16 documented as of this encounter
--- OUTSIDE RECORDS SUMMARY | 2024-01-29 17:42 | External Medical Summary ---
Author Name Unknown Address Unknown Organization K01:LABORATORY [facility] [place] - [address] [facility] [address] Laboratory Report Ordering Provider Test Date Status ENMANUEL REARDON 01/19/2024 10:20:13 Final Observation Date Value Abnormality Reference (Units ) Status BUN 01/19/2024 10:20:13 89 Above high normal 6-20 (mg/dL) Final Creatinine 01/19/2024 10:20:13 4.8 Above high normal 0.6-1.2 (mg/dL) Final Glomerular filtration rate/1.73 sq M.predicted [Volume Rate/Area] in Serum, Plasma or Blood by Creatinine-based formula (CKD-EPI) 01/19/2024 10:20:13 12 Below low normal >=60 (mL/min) Final eGFR is calculated based on the CKD-EPI 2020 equation. Sodium 01/19/2024 10:20:13 138 135-146 (m mol/L) Final Potassium 01/19/2024 10:20:13 4.7 3.5-5.1 (m mol/L) Final Cl 01/19/2024 10:20:13 99 98-107 (mm ol/L) Final CO2 01/19/2024 10:20:13 23 22-32 (mmo l/L) Final Anion gap 01/19/2024 10:20:13 16 Above high normal 7- 15 (mmol/L) Final Glucose 01/19/2024 10:20:13 119 70-120 (mg /dL) Final Albumin 01/19/2024 10:20:13 3.6 Below low normal 3.8 -5.0 (g/dL) Final AST (Aspartate aminotransferase) 01/19/2024 10:20:13 25 10-50 (U/L) Fin al Alk Phos 01/19/2024 10:20:13 72 35-130 (U/ L) Final Bilirubin, Total 01/19/2024 10:20:13 0.3 <=1 .2 (mg/dL) Final Calcium 01/19/2024 10:20:13 7.2 Below low normal 8.4 -10.2 (mg/dL) Final Protein 01/19/2024 10:20:13 6.5 6.0-8.3 (g /dL) Final ALT (Alanine aminotransferase) 01/19/2024 10:20:13 20 10-50 (U/L) Darrell serrano Performing Location LABORATORY [facility] [place] - [address] [facility] [address]
--- OUTSIDE RECORDS SUMMARY | 2024-01-29 17:42 | External Medical Summary ---
Author Name Unknown Address Unknown Organization : Laboratory Report Ordering Provider Test Date Status AYLA FLOR 01/19/2024 10:20:13 Final Observation Date Value Abnormality Reference (Units ) Status Vitamin E, level 01/19/2024 10:20:13 6.7 5.7 -19.9 (mg/L) Final Levels of alpha-tocopherol < 5 mg/L are consistent
with Vitamin E deficiency in adults. Beta+gamma tocopherol [Mass/ volume] in Serum or Plasma 01/19/2024 10:20:13 <1.0 <=4.3 (mg/L) Final Vitamin supplementation with in 24 hours prior to
blood draw may affect the accuracy of the results.
This test was developed and its analytical performance
characteristics have been determined by [facility] [place], [place]. It has
not been cleared or approved by the U.S. Food and Drug
Administration. This assay has been validated pursuant
to the CLIA regulations and is used for clinical
purposes.

Test Performed at:
[facility]
[address] [facility]
[place] [address]
Josafat Cheung M.D., Ph.D.,Director of Laboratories Performing Location
--- OUTSIDE RECORDS SUMMARY | 2024-01-29 17:42 | External Medical Summary | Summary of Care ---
Author Name Unknown Organization [facility] Address [address] [facility] [address] Phone [phone] Care Team Providers Care Registered Nurse Maternity Name Role Phone Desai Jocelyne Briggs Primary Care Provider + [phone] Encounter Details Date Type Department Care Team (Late st Contact Info) Description 01/18/2024 Result Scan Unspecified Department Acacia Carpenter DO [address] [place] [address] <No scans attached> Allergies No known active allergiesdocumented as of this encounter (statuses as of 01/18/2024) Medications ACETAMINOPHEN 500 MG PO TABS 2 [...] disease, chronic, stage IV (GFR 15-29 ml/min) ([facility]) Take 1 Tablet by mouth in the morning. 4 Active Calcitriol 0.5 MCG Oral Capsule (Rocaltrol)Indic ations:Kidney disease, chronic, stage IV (GFR 15-29 ml/min) ([facility]),Hypocalcem ia Take 1 Capsule by mouth in the morning. 30 Capsule 5 4 Active documented as of this encounter (statuses as of 01/18/2024) Active Problems Patient Care Coordination No te Formatting of this note migh t be different from the original. Good connectivity [facility] for wound care [phone] Televideo if needed. Problem Noted Date Diagnosed [...] up with podiatry,. Letter in chart from [facility] podiatry they were unable to get in touch with him. Given phone number to call and make appt. He stated he is willing to do this. Assessment & Plan (07/13/2021 12:15 PM EDT): Toe ulcer present>1 month. Needs xray to rule out osteomyelitis--he will go to [facility] for xray. 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 1 Status [...] ICD-10 update of inactive term PLATT RESEARCH OTHER*[id number] 02/20/2007 SPINAL STENOSIS-LUMBAR 09/23/2002 Vitamin D deficiency Cervical spinal stenosis documented as of this encounter (statuses as of 01/18/2024) Resolved Problems Problem Noted Date Diagnosed Date Resolved Date Chronic kidney disease (CKD) , stage IV (severe) 09/27/2023 10/26/2023 Depression, unspecified 11/09/2021 03/ Depression, unspecified 11/09/202105/2022 Cellulitis of right leg 07/13/202105/2022 Assessment & [...] 11/17/19 23 LUMBAGO 12/24/2002 05/09/2007 LOC PRIM [id number] 12/24/200208/13 DEGENERATIVE SKIN DISORD 12/24/2002 VERTEBRAL FX [...] as of this encounter (statuses as of 01/18/2024) Immunizations Name Administration Dates Next Due COVID-19 [...] No 10/31/2023 Does the household have a [facility] source [facility] income? 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 Not on file Not on file documented as of this encounter Plan of Treatment Upcoming Encounters Date Type Department Care Team (Late st Contact Info) Description 01/19/2024 9:00 AM EST Office Visit Gastroenterology [address] [place] [address] Moon Avila CRNP [address] [place] [address] 01/23/2024 2:00 PM EST Hem/Onc Treatment Hematology/Oncology Treatment, [place] [address] [place] [address] [place], Chair 9 Hem Onc [address] [place] [address] 01/29/2024 1:30 PM EST Laboratory Laboratory [facility] [place] [address] [place] [phone] Kayley, Lab Scenery [address] [place] [address] 01/29/2024 2:00 PM EST Office Visit Hematology/Oncology [facility] [place] [address] [place] [phone] Monse Coates MD [address] [place] [address] [place] [phone] 01/29/2024 2:30 PM EST Immunization/Injection Hematology/Oncology Treatment, [place] [address] [place] [address] Kayley, Chair 7 Hem Onc [address] [place] [address] 02/06/2024 6:30 AM EST Anticoagulation [facility], [address] [place] [address] [place] [address] 02/20/2024 12:30 PM EST Nurse Only Ancillary [address] [place] [address] [place], Nurse [address] [place] [address] 03/08/2024 2:30 PM EST Office Visit Family Medicine [address] [place] [phone] [place] [address] 04/16/2024 3:00 PM EST Office Visit Nephrology [address] [place] [address] Jennifer Agustin MD [address] [facility] [place] [address] Scheduled Procedures Name Priority Associated Diagnoses Date/Ti [...] this encounter Medical Devices Implanted Type Area Canvas Worker Apprentice Device Identifier Shelf Expiration Date Model / Serial / Lot Shaft Fibula 6cm [id number] - [id number] Implanted:Qty: 1 on 09/05/2008 at OR [facility] Tissue - Human N/A: Spine Cervical MUSCULOSKELETAL TRANSPLANT FND 04/20/2010 [id number] / [id number] 0P / Stent Eso Gw 22x70 [id number] - [id number] Implanted:Qty: 1 on 01/21/2008 at OR [facility] N/A: Esophagus [employer] 04/12/2009 [id number] / / [id number] Depuy Uniplate 32 Implanted:Qty: 1 on 09/05/2008 [...] Plate Zach 3 Level Ti 54mm - [id number] Implanted:Qty: 1 on 05/07/2010 at OR [facility] N/A: Neck JNJ : DEPUY SPINE [id number] / / Screw Zach Const St Ti 14mm - [id number] Implanted:Qty: 4 on 05/07/2010 at OR [facility] N/A: Neck JNJ : DEPUY SPINE [id number] 14 / / Screw 3.5x14 Mntr Fa [id number] - [id number] Implanted:Qty: 8 on 05/07/2010 at OR [facility] N/A: Spine Cervical JNJ : ETHICON CARDIOVATIONS [id number] / / Jarrell [id number] - [id number] Implanted:Qty: 1 on 05/07/2010 at OR [facility] N/A: Spine Cervical JNJ : ETHICON CARDIOVATIONS [id number] / / Screw Inner Mntr [id number] - [id number] Implanted:Qty: 8 on 05/07/2010 at OR [facility] N/A: Spine Cervical JNJ : ETHICON CARDIOVATIONS [id number] / / Envista Intraocular Lens Implanted:Qty: 1 on 03/10/2022 by Liang Marshall MD at OR [facility] Right: Eye BAUSCH & LOMB 08/13/2023 [id number] / [id number] / [id number] Envista Intraocular Lens Implanted:Qty: 1 on 03/24/2022 by Liang Marshall MD at OR [facility] Left: Eye BAUSCH & LOMB 07/13/2024 [id number] / [id number] / [id number] documented as of this encounter Procedures Procedure Name Priority Date/Time Associated Diagnosis Comments CARDIOLOGY SCANNED RESULT 01/18/2024 documented in this encounter Results * CARDIOLOGY SCANNED RESULT (01/18/2024) 01/18/2024 Acacai Carpenter DO OTHER Final R esult documented in this encounter Advance Directives Documents on File Type Date Recorded Patient Brick Molder Hand Expl anation POLST 01/26/[address] [place] [address] [facility] [...] Power of Attor andrew? No Care Teams Registered Nurse Maternity Relationship Specialty Start Date End Date Jocelyne Desai DO [address] [place] [address] [place] [address] PCP - General Internal Medicine 11/09/16 documented as of this encounter
--- OUTSIDE RECORDS SUMMARY | 2024-01-29 17:42 | External Medical Summary | Summary of Care ---
Author Name Unknown Organization [facility] Address [address] [facility] [place] [address] Phone [phone] Care Team Providers Care Torsion Spring Coiling Machine Setter Name Role Phone DesaiElissaJocelynejohn Cunninghame DO Primary Care Provider + [phone] Reason for Visit * Reason Comments Dosage Adjustment Via Phone (anticoag Cl inic) Encounter Details Date Type Department Care Team ([facility] st Contact Info) Description 01/16/2024 6:30 AM EST Anticoagulation Central[facility] Clinical Pharmacy Services, Ilya Lafleur [address] [place] [address] [place] [address] [facility], [address] [place] [address] Chronic atrial fibrillation (HCC)* Allergies No known [...] disease, chronic, stage IV (GFR 15-29 ml/min) ([facility]) Take 1 Tablet by mouth in the morning. 4 Active Calcitriol 0.5 MCG Oral Capsule (Rocaltrol)Indic ations:Kidney disease, chronic, stage IV (GFR 15-29 ml/min) ([facility]),Hypocalcem ia Take 1 Capsule by mouth in the morning. 30 Capsule 5 4 Active documented as of this encounter (statuses as of 01/16/2024) Active Problems Patient Care Coordination No te Formatting of this note migh t be different from the original. Good connectivity [facility] for wound care [phone] Televideo if needed. Problem Noted Date Diagnosed [...] obstruction 06/28/2023 Stasis ulcer 06/28/2023 History of SC (myocardial infarction) 11/09/2021 Trigger [...] with podiatry,. Letter in chart from [facility] podiatry they were unable to get in touch with him. Given phone number to call and make appt. He stated he is willing to do this. Assessment & Plan (07/13/2021 12:15 PM EDT): Toe ulcer present>1 month. Needs xray to rule out osteomyelitis--he will go to [facility] for xray. 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 [...] ICD-10 update of inactive term PLATT RESEARCH OTHER*[id number] 02/20/2007 SPINAL STENOSIS-LUMBAR 09/23/2002 Vitamin D deficiency Cervical spinal stenosis documented as of this encounter (statuses as of 01/16/2024) Resolved Problems Problem Noted Date Diagnosed Date Resolved Date Chronic kidney disease (CKD) , stage IV (severe) 09/27/2023 10/26/2023 Depression, unspecified 11/09/202104/14 Depression, unspecified 11/09/202105/2022 Cellulitis [...] 11/17/19 23 LUMBAGO 12/24/2002 05/09/2007 LOC PRIM [id number] 12/24/200208/13 DEGENERATIVE SKIN DISORD 12/24/2002 VERTEBRAL FX [...] 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 Not a known interaction. Estefania Palacios Rph, Pharm.D. Clinical Pharmacist [facility] ([facility]) [phone] 01/16/2024,4:10 PM * Janice Shaw CPhT - 01/16/2024 12:58 PM EST Contacts Contact Date/Time Type Contact Phone/Fax 01/16/2024 12:56 PM EST Phone (Outgoing) Lg Cooley "Akshat" (Self) [phone] (H) Spoke to Patient Subjective Patient Findings Positives: Change in medications (patient started on calcitriol once daily) Negatives: Signs/symptoms of bleeding, Change in health, Change in activity, Upcoming invasive procedure, Missed doses, Extra doses, Change in diet/appetite, Bruising Advised patient to contact Anticoagulation Clinic if any unusual bruising or bleeding, recent illness, changes in medication, or questions/concerns. PT/INR results, Coumadin dose instructions, and next PT/INR date communicated as noted by Pharmacist: Yes JANICE SHAW CPhT 01/16/2024, 12:58 PM * Estefania Palacios RPh - 01/16/2024 10:40 AM EST Coumadin Clinic (region specific) Objective Current Warfarin Dose As of 01/16/2024 Warfarin maintenance plan: 3 mg (3 mg x 1) every Tue, Mariel; 1.5 mg (3 mg x 0.5) all other days INR Result As of 01/16/2024 INR goal: 2.0-3.0 INR used for dosin.4 (01/15/2024) Assessment & Plan Warfarin Plan As of 01/16/2024 Full warfarin instructions: 3 mg every Tue, Mariel; 1.5 mg all other days No change documented: Estefania Palacios RPh Next INR check: 02/05/2024 Repeat PT/INR in 3 week(s) Weekly dose: not changed Additional Dosing Information: Description [facility] Nurses -- Mondays and Fridays ; fax - [phone] ([facility]) Tech to contact patient with dose instructions as noted. Estefania Palacios RPh 01/16/2024, 10:40 AM documented in this encounter Plan of Treatment Upcoming Encounters Date Type Department Care Team (Late st Contact Info) Description 01/19/2024 9:00 AM EST Office Visit Gastroenterology [address] [place] [address] Moon Avila CRNP [address] [place] [address] 01/23/2024 2:00 PM EST Hem/Onc Treatment Hematology/Oncology [address], [address] [phone] Kayley, Chair 9 Hem Onc [facility] [address] [facility] [place] [address] 01/29/2024 1:30 PM EST Laboratory Laboratory [facility] [place] [address] [place] [phone] Kayley, Lab Scenery [address] [facility] [place] [address] 01/29/2024 2:00 PM EST Office Visit Hematology/Oncology [address] [place] [phone] Monse Coates MD [address] [place] [address] [place] [phone] 01/29/2024 2:30 PM EST Immunization/Injection Hematology/Oncology Treatment, [address] [place] [phone] Kayley, Chair 7 Hem Onc Scenery [address] [facility] [place] [address] 02/06/2024 6:30 AM EST Anticoagulation Centralized Clinical Pharmacy Services, Ilya Lafleur [address] [place] [address] [place] [address] [place] [address] 02/20/2024 12:30 PM EST Nurse Only Ancillary [address] [place] [address] [place], Nurse Annual [address] [place] [address] 03/08/2024 2:30 PM EST Office Visit Family Medicine [address] [place] [phone] [address] [place] [address] 04/16/2024 3:00 PM EST Office Visit Nephrology [address] [place] [address] Jennifer Agustin MD [address] [facility] [address] Scheduled Procedures Name Priority Associated Diagnoses Date/Ti [...] this encounter Medical Devices Implanted Type Area Company Laundry Worker Device Identifier Shelf Expiration Date Model / Serial / Lot Shaft Fibula 6cm [id number] - [id number] Implanted:Qty: 1 [place] 09/05/[place] [facility] [place] - Human N/A: Spine Cervical MUSCULOSKELETAL TRANSPLANT FND 04/20/2010 [id number] / [id number] 0P / Stent Eso Gw 22x70 [id number] - [id number] Implanted:Qty: 1 on 01/21/2008 [place] [facility] N/A: Esophagus AL[employer]US INC 04/12/2009 [id number] / / [id number] Depuy Uniplate 32 Implanted:Qty: 1 [place] 09[place]05/2008 [place] Neck [id number] / [id number] / Plate Zach 3 Level Ti 54mm - [id number] Implanted:Qty: 1 on 05/07/2010 [place] [facility] N/A: Neck JNJ : DEPUY SPINE [id number] / / Screw Zach Const St Ti 14mm - [id number] Implanted:Qty: 4 on 05/07/2010 [place] [facility] N/A: Neck JNJ : DEPUY SPINE [id number] / / Screw 3.5x14 Mntr Fa [id number] - [id number] Implanted:Qty: 8 on 05/07/2010 [place] [facility] N/A: Spine Cervical JNJ : ETHICON CARDIOVATIONS [id number] / / Jarrell [id number] - [id number] Implanted:Qty: 1 on 05/07/2010 [place] [facility] N/A: Spine Cervical JNJ : ETHICON CARDIOVATIONS [id number] / / Screw Inner Mntr [id number] - [id number] Implanted:Qty: 8 on 05/07/2010 [place] [facility] N/A: Spine Cervical JNJ : ETHICON CARDIOVATIONS [id number] / / Envista Intraocular Lens Implanted:Qty: 1 on 03/10/2022 by Liang Marshall MD at OR [facility] Right: Eye BAUSCH & LOMB 08/13/2023 [id number] / [id number] / [id number] Envista Intraocular Lens Implanted:Qty: 1 on 03/24/2022 by Liang Marshall MD at OR [facility] Left: Eye BAUSCH & LOMB 07/13/2024 [id number] / [id number] / [id number] documented as of this encounter Visit Diagnoses [...] limited to breakdown of skin (HCC)- Primary Chronic atrial fibrillation (HCC)- Primary Atrial fibrillation documented in this encounter Advance Directives Documents on File Type Date Recorded Patient Systems Integrator Expl anation POLST 01/26/2021 [place] [facility] [...] Power of Attor andrew? No Care Teams Torsion Spring Coiling Machine Setter Relationship Specialty Start Date End Date Jocelyne Desai DO [address] [place] [address] [place] [phone] PCP - General Internal Medicine 11/09/16 documented as of this encounter
--- OUTSIDE RECORDS SUMMARY | 2024-01-29 17:42 | External Medical Summary | Summary of Care ---
Author Name Unknown Organization [facility] Address [address] [facility] [place] [address] Phone [phone] Care Team Providers Care Cloth Calender Name Role Phone Jocelyne Desai DO Primary Care Provider + [phone] Reason for Visit * Reason Comments NEW PATIENT New pt ref by Dr Koch on for wt loss/anorexia. Pt had EGD 10/06. Pt states appetite has been fair. Hx iron def anemia. Per pt he has gained some weight back. Pt states normal BM's. Denies heartburn/dysphagia. * Evaluate & Treat - Unlimited Visits (Within 10 days (routine)) - Authorized Specialty Diagnoses / Procedures Referred By Mingo de paz Referred To Contact Gastroenterology Diagnoses Anorexia Pancreatic atrophy Iron deficiency anemia, unspecified iron deficiency anemia type Gallstones Jocelyne Desai [address] [place] [address] Phone: tel: fax: Referral ID Status Reason Start Date Expiration Date Visits Requested Visits Authorized [id number] Authorized Specialty Services Required 08/28/[phone] Encounter Details Date Type Department Care Team (Late st Contact Info) Description 01/19/2024 9:00 AM EST Office Visit Gastroenterology [place] [facility] [address] [place] [address] Moon Avila CRNP [address] [place] [address] Weight loss*; Atrophy of pancreas; Gallstones; Anorexia Allergies No known active allergiesdocumented as of [...] stage IV (GFR 15-29 ml/min) ([facility]) Take 1 Tablet by mouth in the morning. 4 Active Calcitriol 0.5 MCG Oral Capsule (Rocaltrol)Indic ations:Kidney disease, chronic, stage IV (GFR 15-29 ml/min) ([facility]),Hypocalcem ia Take 1 Capsule by mouth in the morning. 30 Capsule 5 4 Active documented as of this encounter (statuses as of 01/19/2024) Active Problems Patient Care Coordination No te Formatting of this note migh t be different from the original. Good connectivity [facility] for wound care [phone] Televideo if needed. Problem Noted Date Diagnosed [...] up with podiatry,. Letter in chart from [facility] podiatry they were unable to get in touch with him. Given phone number to call and make appt. He stated he is willing to do this. Assessment & Plan (07/13/2021 12:15 PM EDT): Toe ulcer present>1 month. Needs xray to rule out osteomyelitis--he will go to [facility]. 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 weighed at home this AM. Height - - Body Mass Index 30.96 11/06/2023 1:54 PM EDT documented in this encounter Progress Notes * Moon Avila CRNP - 01/19/2024 9:31 AM EST DATE OF SERVICE: 01/19/2024 REFERRING PHYSICIAN: Jocelyne Desai DO CC: Gallstones, atrophy of pancreas, weight loss and anorexia HPI: Lg Cooley is 73 year old male referred by Jocelyne Desai DO for evaluation of Gallstones, atrophy of pancreas, weight loss and anorexia. He has hx of L MCA stroke, DM II, CKD IV - possibly starting Hemo vs peritoneal dialysis, Fe deficient anemia on IV iron (unable to tolerate PO iron hylton pplement), s/p RYGB, Depression, Afib on Warfarin. He had 50lb weight loss between Feb to August 2023.188lbs in September, up to 222 now (pt refused to be weighed in clinic, states he weight at home) Multiple admissions to [facility] admission in June, July, Oct for leg cellulitis, pseudomonas infection, anemia, hemoccult positive. He noticed less appetite and change in taste after he was admitted at [facility] for his cellulitis and after multiple antibiotics. Has early satiety. States taste is normalizing now. Denies abd pain, n/v. Bowels move 'couple of times a day', denies any black tarry stools or rectalbleeding. Denies fatty appearing stools or oily layer. Stools are formed. He gets Meals on Wheels for lunch. 24hr food recall: 1 banana + 1 mug of coffee, 1 plate of macaroni & ground beef for lunch and dinner. Not on protein supplements, cannot afford them. GI WORKUP: EGD 2007:- Z-line regular, 45 cm from the incisors. - No gross lesions in esophagus. - Stenosed Bhupinder-en-Y gastrojejunostomy was found. EGD 2023: - Normal esophagus. - Z-line regular. - Gastric bypass with a normal-sized pouch. Gastrojejunal anastomosis characterized by healthy appearing mucosa. - Normal examined jejunum Colonoscopy 2010: - Preparation of the colon was poor. - Stool entire examined colon. - The examination was otherwise normal Colonoscopy 2021: - The examined portion of the ileum was normal. - The entire examined colon is normal on direct and retroflexion views. - No specimens collected CT abd/pelvis wo IV contrast 08/24/2023: Study is limited without IV contrast. LOWER CHEST: HEART (visualized): Normal in size. Cardiac pacer wire extending into the right ventricle. LUNG BASES: Clear. ABDOMEN/PELVIS: LINES AND DEVICES: None. LIVER: Unremarkable. BILE DUCTS: Unremarkable. GALLBLADDER: Cholelithiasis. PANCREAS: Atrophic. SPLEEN: Unremarkable. ADRENALS: Unremarkable. KIDNEYS/URETERS: Atrophic. BLADDER: Unremarkable. BOWEL: Gastric bypass. No evidence of bowel obstruction. Normal appendix. LYMPH NODES: No intra-abdominal or intrapelvic lymphadenopathy. VESSELS: Abdominal aorta is normal in caliber with mild calcification. REPRODUCTIVE ORGANS: Dystrophic calcification in the prostate. PERITONEUM/RETROPERITONEUM: No ascites or pneumoperitoneum. ABDOMINAL WALL/SOFT TISSUES: Unremarkable. BONES: Mild degenerative changes in the spine. Bilateral femoral head avascular necrosis. IMPRESSION No findings to account for the patient's symptoms. Past Medical History: Diagnosis Date Amputated toe (HCC) 05/06/11 2nd toe right foot- no osteomyelitis Atrial fibrillation (HCC) Atrial fibrillation (HCC) Atrial fibrillation (HCC) B12 deficiency 12/21/2015 Background diabetic retinopathy(362.01) Cervical [...] elsewhere classified Diabetic foot ulcer ([facility]) 04/27/2011 Displacement of cervical intervertebral disc without myelopathy 2007 C4-5 DM neuropathy, type II diabetes mellitus ([facility]) 07/30/2012 DM type 2 causing renal disease ([facility]) DIABETES TYPE II W RENAL MANIFEST DM type 2, goal A1c below 7 DM type 2, not at goal ([facility]) 1998 Dyslipidemia, goal LDL below 100 [...] or foot 04/20/2005 Lumbago Microalbuminuric diabetic nephropathy ([facility]) 06/03/2014 Mixed dyslipidemia Morbid obesity, BMI not known ([facility]) Other B-complex deficiencies Other hammer toe (acquired) 11/13/2004 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 Paroxysmal SVT (supraventricular tachycardia) ([facility]) 04/23/2013 Perforation of esophagus 01/21/08 PERFORATED ESOPHAGUS 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 ([facility]) 07/30/2012 Peripheral sensory neuropathy 01/12/2015 Plantar fibromatosis 04/20/2005 Primary localized osteoarthrosis, lower leg OA of knees PVD (peripheral vascular disease) ([facility]) 11/09/2011 PVD (peripheral vascular disease) ([facility]) 11/09/2011 In a combination Rupture of flexor tendons of hand and wrist 1997 severed tendon index finger right hand Severe nonproliferative diabetic retinopathy(362.06) bilateral Spinal stenosis of lumbar region without neurogenic claudication Spinal stenosis of lumbar region without neurogenic claudication Toe osteomyelitis, right ([facility]) 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[facility]) 01/12/2015 Venous insufficiency Venous stasis of lower extremity 06/17/2013 Vitamin D deficiency 10/16/07 Vitamin D deficiency Family History Problem Relation Name Age of Onset Heart Disorder Mother pacemaker Diabetes Mother Cancer Mother esopheagal Hypertension Mother Cancer Father Diabetes Father Heart Disorder Father Blindness Father "Diabetes related" Hypertension Father Hypertension Brother Past Surgical History: Procedure Laterality Date AMPUTATION OF TOE 05/06/2011 2nd toe right foot - no osteomyelitis AMPUTATION OF TOE 08/2020 big toe on right foot COLONOSCOPY, DIAGNOSTIC (RECTUM) 09/23/2010 normal COLONOSCOPY, DIAGNOSTIC (RECTUM) 09/08/2021 normal, repeat 10 yrs / COLONOSCOPY FLEXIBLE PROXIMAL DIAGNOSTIC performed by Janice Shoemaker DO atENDOSCOPY [facility] CYSTOSCOPY 02/16/2015 EGD, FLEXIBLE, DIAGNOSTIC 09/20/2007 UPPER GI ENDOSCOPY DIAGNOSTIC performed by KAUSHAL WHITE at [facility] EGD, FLEXIBLE, DIAGNOSTIC 01/04/2008 UPPER GI ENDOSCOPY DIAGNOSTIC performed by KAUSHAL WHITE at [facility] EGD, FLEXIBLE, DIAGNOSTIC 03/21/2008 UPPER GI ENDOSCOPY DIAGNOSTIC performed by KAUSHAL WHITE at [facility] EGD, FLEXIBLE, DIAGNOSTIC N/A 09/14/2023 normal/ESOPHAGOGASTRODUODENOSCOPY (EGD), FLEXIBLE, TRANSORAL, DIAGNOSTIC performed by Amarilys Jaquez MD at OR [facility] EGD, FLEXIBLE, TRANSENDOSCOPIC DILATION <30MM 01/04/2008 UPPER GI ENDOSCOPY BALLOON DILATION LESS THAN 30MM performed by KAUSHAL WHITE at [facility] EXPLORATION OF ABDOMEN 01/21/2008 EXPLORATORY LAPAROTOMY [place] WH[place] [facility] FORM SKIN PEDICLE, TRUNK 02/14/1956 to right forearm INFORMATION Gum surgery/cyst removed INFORMATION 02/13/2005 ORAL CYST REMOVAL INJECTION OF EYE DRUG Right 12/30/2021 # 1 Avastin OD, Dr. Hodge INJECTION OF EYE DRUG Right 04/01/2022 # 2 Avastin OD, Dr. Hodge INSERT/REPLACE PACEMAKER,ATRIAL/VENTRICULAR 04/11/2013 04/11/2013 placement of siingle-chamber pacemaker via left subclavian approach [facility] DR.Mar Garcia - symptomatic bradycardia LAPAROSCOPE PROCEDURE, LIVER 09/20/2007 UNLISTED LAPAROSCOPIC PROCEDURE LIVER performed [place] KAUSHAL WHITE [place] [facility] LAPAROSCOPIC GASTRIC BYPASS/BHUPINDER-EN-Y 09/20/2007 LAPAROSCOPIC GASTRIC RESTRICTIVE BYPASS BHUPINDER EN Y performed by KAUSHAL WHITE at [place] [facility] LASER SURGERY OF INNER EYE STRANDS Bilateral "about 20- 25 years ago" MICROSURGERY ADD-ON 05/07/2010 MICROSURGICAL SURGERY REQUIRING MICROSCOPE LISTED SEPARATELY performed [place] GAVIN BHARDWAJ [place] [facility] [place] FOOT WO CONTRAST 04/06/2011 Osteomyelitis of the distal phalanx of the 2nd digit. Reactive edema versus early osteomyelitis of the 2nd middle phalanx NECK SPINE FUSION (CERV, BELOW C2) 09/05/2008 ARTHRODESIS SPINE ANTERIOR CERVICAL performed by GAVIN BHARDWAJ [place] [facility] NECK SPINE FUSION (CERV, BELOW C2) 05/07/2010 ARTHRODESIS SPINE ANTERIOR CERVICAL performed by GAVIN BHARDWAJ at [place] [facility] NECK SPINE FUSION (CERV, BELOW C2) 05/07/2010 ARTHRODESIS SPINE POSTERIOR CERVICAL performed by GAVIN BHARDWAJ [place] [facility] OTHER (INFORMATION) ACT 112 SIGNED 06/11/20 DR. HODGE OTHER (INFORMATION) Bilateral AVASTIN OU CONSENT DR. HODGE/MITESH EXP. 12/30/22 PACEMAKER INSERTION PER 01/18/2023 Dr. Rodriguez [facility] PARTIAL AMPUTATION OF TOE Right 12/2020 3rd toe and release tendon of other toes at the same time. REMOVAL OF TONSILS, AGE 12+ REMOVE ADDED VERTEBRAL SEG, NECK 05/07/2010 VERTEBRAL CORPECTOMY CERVICAL EACH ADDITIONAL LEVEL performed by GAVIN BHARDWAJ [place] [facility] REMOVE CATARACT, INSERT LENS PROSTH Right 03/10/2022 right EXTRACAPSULAR CATARACT REMOVAL WITH INTRAOCULAR LENS performed by Liang Marshall MD at OR [facility] REMOVE CATARACT, INSERT LENS PROSTH Left 03/24/2022 left EXTRACAPSULAR CATARACT REMOVAL WITH INTRAOCULAR LENS performed by Liang Marshall MD at OR [facility] REMOVE NECK SPINE DISK, SINGLE 09/05/2008 DISKECTOMY ANTERIOR CERVICAL performed by GAVIN BHARDWAJ [place] [facility] REMOVE NECK SPINE DISK, SINGLE 05/07/2010 DISKECTOMY ANTERIOR CERVICAL performed by GAVIN BHARDWAJ [place] [facility] REMOVE VERTEBRAL BODY, NECK, SINGLE 05/07/2010 VERTEBRAL CORPECTOMY ANTERIOR CERVICAL performed by GAVIN BHARDWAJ [place] [facility] REPAIR FINGER/HAND TENDON, EACH & right index finger tendon transfer from toe - [facility] SPINE FIX DEV, ANT, 4-7 SEG, INSERT 05/07/2010 ANTERIOR INSTRUMENTATION 4 TO 7 VERTEBRAL SEGMENTS performed by GAVIN BHARDWAJ at [place] [facility] SPINE SEG FIX, POST, 3-6 SEG, INSERT 05/07/2010 POSTERIOR SPINE SEGMENTAL INSTRUMENTATION 3 TO 6 PSF performed by GAVIN BHARDWAJ [place] [facility] UPPR GI ENDOSCOPY W/STENT 01/21/2008 UPPER GI ENDOSCOPY WITH TRANSENDOSCOPIC STENT PLACEMENT performed by KAUSHAL WHITE [place] [facility] Social History Tobacco Use Smoking status: Never Smokeless tobacco: Never Vaping Use Vaping status: Never Used Substance Use Topics Alcohol use: Yes Comment: rare beer or wine in the summer Drug use: No Review of patient's allergies indicates: No Known Allergies Current Outpatient Medications Medication Sig Dispense Refill [...] mouth in the morning. 30 Capsule 0 Atorvastatin Calcium 40 MG Oral Tablet [...] by mouth in the morning. with food.. Vitron-C 65-125 MG Oral Tablet (Iron-Vitamin C 65-125 mg per tab) Take 1 Tablet by mouth in the morning. Vitamin D3 10 MCG (400 UNIT) Oral Tablet Chewable Take by mouth. Sodium Bicarbonate 650 MG Oral Tablet Take 2 Tablets by mouth in the morning and 2 Tablets before bedtime. 360 Tablet 3 Torsemide 20 MG Oral Tablet (Demadex) Take 2 Tablets by mouth in the morning and 2 Tablets in the evening. (Patient taking differently: Take 2 Tablets by mouth in the morning and 2 Tablets in the evening. 12/27/23- Pt to take 80mg BID x3 days. Then decrease to 60mg BID.) 360 Tablet 3 Potassium Chloride Candi ER 20 MEQ Oral Tablet Extended Release Take 1 Tablet by mouth in the morning. Calcitriol 0.5 MCG Oral Capsule (Rocaltrol) Take 1 Capsule by mouth in the morning. 30 Capsule 5 No current facility-administered medications for this visit. REVIEW OF SYSTEMS: See HPI above; All other findings negative. EXAM: Filed Vitals: 01/19/24 0913 BP: 132/78 Temp: 36.7 C (98.1 F) Weight: 100.7 kg (222 lb) GENERAL: Well developed and well nourished in no acute distress. SKIN: No rashes, ulcers, jaundice or spider angiomata. HEENT: Normocephalic, sclera clear. NECK: Supple, trachea midline, no JVD. LUNGS: Clear to auscultation bilaterally, no respiratory distress or accessory muscles used. HEART: Regular rate & rhythm, no murmurs and no gallops. ABDOMEN: Normal bowel sounds, soft and nontender. EXTREMITIES: No palmar erythema, bilateral LE wrapped and has generalized swelling, no clubbing, nocyanosis. NEURO: No lateralizing findings. Sensory/Motor grossly normal. ASSESSMENT AND PLAN: Lg Cooley is 73 year old male evaluated for gallstones, atrophy of pancreas, weight loss and anorexia. He has hx of L MCA stroke, DM II, CKD IV - possibly starting Hemo vsperitoneal dialysis, Fe deficient anemia on IV iron (unable to tolerate PO iron supplement), s/p RYGB, Depression, Afib on Warfarin. He denies ay current GI symptoms including abd pain, n/v, signs ofgross GI bleeding. LFTs normal. Abd exam benign. I suspect his weight loss is multi-factorial (cellulitis, pseudomonas infection, CKD, ? Pancreatic insufficiency). - Labs: Vitamin a (retinol) Vitamin e (tocopherol) Tsh * vit D normal. PT/INR abnormal but on Warfarin. - Check fecal elastase - Recent EGD; last colonoscopy 2 yr ago. Will plan for EUS eval (r/o pancreatic disease, obstructing gallstones), and colonoscopy to r/o source of LGI bleeding which may contribute to anemia. Consider VCE if no LGI source found - Recommend re-establishing with GI nutrition but pt declined at this time. Advised to increase protein intake in diet. Continue daily weights. I spent a total of 45 minutes on the date of service in review of patient's record, and previously obtained information in person and appropriate medical visit, discussion and education of plan, withpatient and/or caregiver, placing orders for tests/referral/procedures as medically necessary and documentation of pertinent clinical information in patient's medical records for their visit today. RETURN TO CLINIC: 3 months or sooner Vonda Pedro [facility] Gastroenterology, [facility] documented in this encounter Nursing Notes * Fannie Portillo CMA - 01/19/2024 9:16 AM EST Chief Complaint Patient presents with NEW PATIENT New pt ref by Dr Desai for wt loss/anorexia. Pt had EGD 10/06. Pt states appetite has been fair. Hx iron def anemia. Per pt he has gained some weight back. Pt states normal BM's. Denies heartburn/dysphagia. documented in this encounter Plan of Treatment Upcoming Encounters Date Type Department Care Team (Late st Contact Info) Description 01/23/2024 2:00 PM EST Hem/Onc Treatment Hematology/Oncology Treatment, [place] [address] [facility] [phone] [place], Chair 9 Hem Onc [address] [place] [address] 01/29/2024 1:30 PM EST Laboratory Laboratory [facility] [address] [place] [phone] [place], Lab [address] [place] [address] 01/29/2024 2:00 PM EST Office Visit Hematology/Oncology [facility] [place] [address] [facility] [place] [phone] Monse Coates MD [address] [place] [address] [place] [address] 01/29/2024 2:30 PM EST Immunization/Injection Hematology/Oncology Treatment, [place] [address] [place] [address] [place], Chair 7 Hem Onc [facility] [address] [facility] [place] [address] 02/06/2024 6:30 AM EST Anticoagulation [facility], Ilya Lafleur [address] [place] [address] [place] [address] [facility], [address] [place] [address] 02/20/2024 12:30 PM EST Nurse Only Ancillary [address] [place] [address] [place], Nurse [address] [place] [address] 03/08/2024 2:30 PM EST Office Visit Family Medicine [address] [place] [phone] [address] [place] [address] 04/16/2024 3:00 PM EST Office Visit Nephrology [address] [place] [address] Jennifer Agustin MD [address] [place] [address] 04/19/2024 3:00 PM EST Office Visit Gastroenterology [address] [place] [address] Moon Avila CRNP [address] [place] [address] Pending Results Name Type Priority Associated Diagnoses Date /Time VITAMIN A (RETINOL) Lab Routine Weight loss 01/19/2024 10:20 AM EST VITAMIN E (TOCOPHEROL) Lab Routine Weight loss 01/19/2024 10:20 AM EST TSH Lab Routine Weight loss 01/19/2024 10:20 AM EST Scheduled Orders Name Type Priority Associated Diagnoses Orde r Schedule US ENDOSCOPIC Medical Imaging Routine Weight loss Atrophy of pancreas Ordered: 01/19/2024 VITAMIN A (RETINOL) Lab Routine Weight loss Expected: 01/19/2024, Expires: 01/18/2025 VITAMIN E (TOCOPHEROL) Lab Routine Weight loss Expected: 01/19/2024, Expires: 01/18/2025 PANCREATIC ELASTASE-1 Lab Routine Weight loss Atrophy of pancreas Expected: 01/19/2024, Expires: 01/18/2025 COLONOSCOPY, DIAGNOSTIC (RECTUM) Procedures Routine Weight loss Ordered: 01/19/2024 TSH Lab Routine Weight loss Expected: 01/19/2024, Expires: 01/18/2025 Scheduled Procedures Name Priority Associated Diagnoses Date/Ti [...] this encounter Medical Devices Implanted Type Area Soldering Inspector Device Identifier Shelf Expiration Date Model / Serial / Lot Shaft Fibula 6cm [id number] - [id number] [place]ed:Q[place] 1 [place] 09/05/[place] [facility] Tissue - Human N/A: Spine Cervical MUSCULOSKELETAL TRANSPLANT FND 04/20/2010 [id number] / [id number] 0P / Stent Eso Gw 22x70 [id number] - [id number] Implanted:Qty: 1 on 01/21/2008 [place] [facility] N/A: Esophagus [employer] 04/12/2009 [id number] / / [id number] Depuy Uniplate 32 Implanted:Qty: 1 on 09/05/2008 [...] Plate Zach 3 Level Ti 54mm - [id number] Implanted:Qty: 1 on 05/07/2010 [place] [facility] N/A: Neck JNJ : DEPUY SPINE [id number] / / Screw Zach Const St Ti 14mm - [id number] Implanted:Qty: 4 on 05/07/2010 [place] [facility] N/A: Neck JNJ : DEPUY SPINE [id number] / / Screw 3.5x14 Mntr Fa [id number] - [id number] Implanted:Qty: 8 on 05/07/2010 [place] [facility] N/A: Spine Cervical JNJ : [employer] [id number] / / Jarrell 3.5e535ic [id number] - [id number] Implanted:Qty: 1 on 05/07/2010 [place] [facility] N/A: Spine Cervical JNJ : [employer] [id number] / / Screw Inner Mntr [id number] - [id number] Implanted:Qty: 8 on 05/07/2010 [place] [facility] N/A: Spine Cervical JNJ : [employer] [id number] / / Envista Intraocular Lens Implanted:Qty: 1 on 03/10/2022 by Liang Marshall MD at OR [facility] Right: Eye [employer] 08/13/2023 [id number] / [id number] / [id number] Envista Intraocular Lens Implanted:Qty: 1 on 03/24/2022 by Liang Marshall MD at OR [facility] Left: Eye [employer]OM[employer] 07/13/2024 [id number] / [id number] / [id number] documented as of this encounter Visit Diagnoses Diagnosis Right great toe amputee (HCC)- Primary Diabetic ulcer of toe of right foot associated with type 2 diabetes mellitus, limited to breakdown of skin ([facility]) Cellulitis of right leg Cellulitis and abscess of leg, except foot Type 2 diabetes, controlled, with peripheral neuropathy (HCC) Type II or unspecified type diabetes mellitus with neurological manifestations, not stated as uncontrolled Status post amputation of lesser toe of right foot ([facility]) Type 2 diabetes mellitus with stage 3b chronic kidney disease, with long-term current use of insulin ([facility]) Venous insufficiency of both lower extremities Multiple open wounds of left lower leg Type 2 diabetes mellitus with peripheral vascular disease (HCC) Diabetic ulcer of toe of right foot associated with type 2 diabetes mellitus, limited to breakdown of skin (HCC)- Primary Weight loss- Primary Loss of weight Atrophy of pancreas Other specified disease of pancreas Gallstones Calculus of gallbladder without mention of cholecystitis or obstruction Anorexia documented in this encounter Advance Directives Documents on File Type Date Recorded 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 No Care Teams Cloth Calender Relationship Specialty Start Date End Date Jocelyne Desai DO [address] [place] [address] [place] [address] PCP - General Internal Medicine 11/09/16 documented as of this encounter
--- OUTSIDE RECORDS SUMMARY | 2024-01-29 17:43 | External Medical Summary | Summary of Care ---
Author Name Unknown Organization [facility] Address [address] [facility] [place] [address] Phone [phone] Care Team Providers Care Rivet Machine Operator Name Role Phone Jocelyne Desai Primary Care Provider [phone] Reason for Visit * Reason Onset Date Comments Precert Future 01/15/2024 Retacrit/Monofer aneesh Encounter Details Date Type Department Care Team (Late st Contact Info) Description 01/15/2024 Telephone Hematology/Oncology Christian Kayley [place] [facility] [address] Monse Coates MD [address] [place] [address] [place] [address] Precert Future (Retacrit/Monoferric) Allergies [...] disease, chronic, stage IV (GFR 15-29 ml/min) ([facility]) Take 1 Tablet by mouth in the morning. 4 Active Calcitriol 0.5 MCG Oral Capsule (Rocaltrol)Indic ations:Kidney disease, chronic, stage IV (GFR 15-29 ml/min) ([facility]),Hypocalcem ia Take 1 Capsule by mouth in the morning. 30 Capsule 5 Active documented as of this encounter (statuses as of 01/16/2024) Active Problems Patient Care Coordination No te Formatting of this note migh t be different from the original. Good connectivity [facility] for wound care [phone] Televideo if needed. Problem Noted Date Diagnosed [...] up with podiatry,. Letter in chart from [facility] podiatry they were unable to get in touch with him. Given phone number to call and make appt. He stated he is willing to do this. Assessment & Plan (07/13/2021 12:15 PM EDT): Toe ulcer present>1 month. Needs xray to rule out osteomyelitis--he will go to [facility] for xray. 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 Scheduling: please call patient to schedule 2 hour appt "monoferric" (Dr Coates). Per Dr Wiseman, requesting this for next week. If patient asks, this cannot be same day as retacrit injection appt per insurance. Thanks! * Telephone Encounter - Josafat Jeffers, RN - 01/15/2024 3:12 PM EST Received [...] 9:00 AM EST Office Visit Gastroenterology [address] [place] [address] Moon Avila CRNP [address] [facility] [address] 01/29/2024 1:30 PM EST Laboratory Laboratory [facility] [address] [place] [phone] [facility] [address] [facility] [place] [address] 01/29/2024 2:00 PM EST Office Visit Hematology/Oncology [facility] [address] [place] [phone] Monse Coates MD [address] [place] [address] [place] [phone] 01/29/2024 2:30 PM EST Immunization/Injecti on Hematology/Oncology Treatment, [place] [address] [facility] [place] [address] Kayley, Chair 7 Hem Onc Scenery [address] [place] [address] 02/20/2024 12:30 PM EST Nurse Only Ancillary [address] [place] [address] [place], Nurse [address] [place] [address] 03/08/2024 2:30 PM EST Office Visit Family Medicine [address] [place] [phone] [address] [place] [address] 04/16/2024 3:00 PM EST Office Visit Nephrology [address] [place] [address] Jennifer Agustin MD [address] [place] [address] Scheduled Procedures Name Priority Associated Diagnoses Date/Ti [...] this encounter Medical Devices Implanted Type Area Route Driver Coin Machines Device Identifier Shelf Expiration Date Model / Serial / Lot Shaft Fibula 6cm [id number] - [id number] Implanted:Qty: 1 on 09/05/2008 at [place] [facility] Tissue - Human N/A: Spine Cervical MUSCULOSKELETAL TRANSPLANT FND 04/20/2010 [id number] / [id number] / Stent Eso Gw 22x70 [id number] - [id number] Implanted:Qty: 1 on 01/21/2008 at [place] [facility] N/A: Esophagus [employer] 04/12/2009 [id number] / / [id number] Depuy Uniplate 32 Implanted:Qty: 1 on 09/05/2008 at [place] [facility] N/A: Spine Cervical TAMMY & TAMMY DEPUY 1897-02-302 / / Depuy Uniplate Screw 14mm Implanted:Qty: 2 on 09/05/2008 at OR [facility] N/A: Spine Cervical TAMMY & TAMMY DEPUY 1897-06-017 / / Depuy Lordotic Bengal Cage Implanted:Qty: 1 on 05/07/2010 at OR [facility] N/A: Neck 1773-06-146 / [id number] / Plate Zach 3 Level Ti 54mm - [id number] Implanted:Qty: 1 on 05/07/2010 at [place] [facility] N/A: Neck JNJ : DEPUY SPINE [id number] / / Screw Zach Const St Ti 14mm - [id number] Implanted:Qty: 4 on 05/07/2010 at [place] [facility] N/A: Neck JNJ : DEPUY SPINE [id number] / / Screw 3.5x14 Mntr Fa [id number] - [id number] Implanted:Qty: 8 on 05/07/2010 at [place] [facility] N/A: Spine Cervical JNJ : ETHICON CARDIOVATIONS [id number] / / Jarrell [id number] - [id number] Implanted:Qty: 1 on 05/07/2010 at [place] [facility] N/A: Spine Cervical JNJ : ETHICON CARDIOVATIONS [id number] / / Screw Inner Mntr [id number] - [id number] Implanted:Qty: 8 on 05/07/2010 at [place] [facility] N/A: Spine Cervical JNJ : ETHICON CARDIOVATIONS [id number] / / Envista Intraocular Lens Implanted:Qty: 1 on 03/10/2022 by Liang Marshall MD at OR [facility] Right: Eye BAUSCH & LOMB 08/13/2023 [id number] / [id number] / [id number] Envista Intraocular Lens Implanted:Qty: 1 on 03/24/2022 by Liang Marshall MD at OR [facility] Left: Eye BAUSCH & LOMB 07/13/2024 [id number] / [id number] / [id number] documented as of this encounter Advance Directives Documents on File Type Date Recorded 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 No Care Teams Rivet Machine Operator Relationship Specialty Start Date End Date Jocelyne Desai DO [address] [place] [address] [place] [address] PCP - General Internal Medicine 11/09/16 documented as of this encounter
--- OUTSIDE RECORDS SUMMARY | 2024-01-29 17:43 | External Medical Summary | Summary of Care ---
Author Name Unknown Organization [facility] Address [address] [facility] [place] [address] Phone [phone] Care Team Providers Care Cable Maker Name Role Phone Jocelyne Desai DO Primary Care Provider [phone] Reason for Visit * Reason Comments Medication Administration Retacrit 40,00 0 units * Episode Based Medications (Routine) - Authorized Specialty Diagnoses / Procedures Referred By Contzahida t Referred To Contact Diagnoses 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) Iron deficiency anemia due to chronic blood loss Procedures WA INJ RETACRIT NON-ESRD USE Monse Coates MD [address] [place] [address] [place] [address] Phone: tel: fax: Hematology/Oncology Treatment, [address] [place] [address] Phone: tel: fax: Referral ID Status Reason Start Date Expiration Date V isits Requested Visits Authorized [id number] Authorized 11/13/2023 11/12/2024 [id number] Encounter Details Date Type Department Care Team (Late st Contact Info) Description 01/15/2024 2:00 PM EST Immunization/I njection Hematology/Oncology Treatment, [address] [address] Kayley, Chair 7 [address] [address] 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)*; Iron deficiency anemia due to chronic blood loss Allergies No known active allergiesdocumented as of this encounter (statuses as of 01/15/2024) Medications ACETAMINOPHEN 500 MG PO TABS 2 [...] disease, chronic, stage IV (GFR 15-29 ml/min) ([facility]) Take 1 Tablet by mouth in the morning. Active Calcitriol 0.5 MCG Oral Capsule (Rocaltrol)Indic ations:Kidney disease, chronic, stage IV (GFR 15-29 ml/min) ([facility]),Hypocalcem ia Take 1 Capsule by mouth in the morning. 30 Capsule 5 4 Active documented as of this encounter (statuses as of 01/15/2024) Active Problems Patient Care Coordination No te Formatting of this note migh t be different from the original. Good connectivity [facility] for wound care [phone] Televideo if needed. Problem Noted Date Diagnosed [...] to rule out osteomyelitis--he will go to [facility]. 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 Will treat with 7 days antibiotic. If pt cannot be reassess by Dr. Barters office early next week will need FOUR [...] 11/17/19 23 LUMBAGO 12/24/2002 05/09/2007 LOC PRIM [id number] 12/24/200208/13 DEGENERATIVE SKIN DISORD 12/24/2002 VERTEBRAL FX [...] as of this encounter (statuses as of 01/15/2024) Immunizations Name Administration Dates Next Due COVID-19 mRNA, LNP-s, No Pre serve, 2-Dose Series (Moderna) 03/19/2020 COVID-19 mRNA, LNP-s, No Pre serve, 2-Dose Series (Pfizer) 02/16/2021,04/09/2020,03/19/2020 COVID-19, MRNA-LNP, PF, 30 M CG/0.3 mL, 12 YRS AND ABOVE, IM ([facility]) 11/16/2022 Covid-19, Mrna, Lnp-s, Pf, B ivalent, [...] 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 Patient tolerated injection and will return in 2 weeks. documented in this encounter Plan of Treatment Upcoming Encounters Date Type Department Care Team (Late st Contact Info) Description 01/16/2024 6:30 AM EST Anticoagulation [facility] Services, Ilya Lafleur [address] [place] [address] [place] [address] [place] [address] 01/19/2024 9:00 AM EST Office Visit Gastroenterology [address] [place] [address] Moon Avila CRNP [address] [place] [address] 01/29/2024 1:30 PM EST Laboratory Laboratory [place] [facility]o Zaldivar [address] [place] [phone] [place], Lab Scenery [address] [place] [address] 01/29/2024 2:00 PM EST Office [facility]ia [address] [place] [phone] Monse Coates MD [address] [place] [phone] 01/29/2024 2:30 PM EST Immunization/Injection Hematology/Oncology Treatment, [place] [address] [facility] [address] [address] [place] [phone] [place], Chair 7 Hem Onc Scenery 200 [facility] [place] [address] 02/20/2024 12:30 PM EST Nurse Only Ancillary [address] [place] [address] [place], Nurse [address] [place] [address] 03/08/2024 2:30 PM EST Office Visit Family Medicine [address] [place] [phone] [address] [place] [address] 04/16/2024 3:00 PM EST Office Visit Nephrology [address] [place] [address] Jennifer Agustin MD 200 [facility] [address] Scheduled Procedures Name Priority Associated Diagnoses Date/Ti [...] this encounter Medical Devices Implanted Type Area Dope Edger Device Identifier Shelf Expiration Date Model / Serial / Lot Shaft Fibula 6cm [id number] - [id number] Implanted:Qty: 1 on 09/05/2008 at [place] [facility] Tissue - Human N/A: Spine Cervical MUSCULOSKELETAL TRANSPLANT FND 04/20/2010 [id number] / [id number] / Stent Eso Gw 22x70 [id number] - [id number] Implanted:Qty: 1 on 01/21/2008 at OR [facility] N/A: Esophagus [employer]US INC 04/12/2009 28927-956 / / [id number] Depuy Uniplate 32 Implanted:Qty: 1 on 09/05/2008 at OR [facility] N/A: Spine Cervical TAMMY & TAMMY DEPUY 1897-02-302 / / Depuy Uniplate Screw 14mm Implanted:Qty: 2 on 09/05/2008 at OR [facility] N/A: Spine Cervical TAMMY & TAMMY DEPUY 1897-06-017 / / Depuy Lordotic Bengal Cage Implanted:Qty: 1 on 05/07/2010 at OR [facility] N/A: Neck 1773-06-146 / [id number] / Plate Zach 3 Level Ti 54mm - [id number] Implanted:Qty: 1 on 05/07/2010 at OR [facility] N/A: Neck JNJ : DEPUY SPINE [id number] / / Screw Zach Const St Ti 14mm - [id number] Implanted:Qty: 4 on 05/07/2010 at OR [facility] N/A: Neck JNJ : DEPUY SPINE [id number] / / Screw 3.5x14 Mntr Fa [id number] - [id number] Implanted:Qty: 8 on 05/07/2010 at OR [facility] N/A: Spine Cervical JNJ : ETHICON CARDIOVATIONS [id number] / / Jarrell [id number] - [id number] Implanted:Qty: 1 on 05/07/2010 at OR [facility] N/A: Spine Cervical JNJ : ETHICON CARDIOVATIONS [id number] / / Screw Inner Mntr [id number] - [id number] Implanted:Qty: 8 on 05/07/2010 at OR [facility] N/A: Spine Cervical JNJ : ETHICON CARDIOVATIONS [id number] / / Envista Intraocular Lens Implanted:Qty: 1 on 03/10/2022 by Liang Marshall MD at OR [facility] Right: Eye BAUSCH & LOMB 08/13/2023 [id number] / [id number] / [id number] Envista Intraocular Lens Implanted:Qty: 1 on 03/24/2022 by Liang Marshall MD at OR [facility] Left: Eye BAUSCH & LOMB 07/13/2024 [id number] / [id number] / [id number] documented as of this encounter Visit Diagnoses [...] Date Dose Rate Site Epoetin Sam-epbx (Retacrit) 41261 UNIT/ML inj 40,000 Units 40,000 Units, Subcutaneous, ONCE, On Mon01/15/24 at 1545, For 1 dose, If hgb <11.0Indications:Anemi a due to stage 4 chronic kidney disease (HCC),Iron deficiency anemia due to chronic blood loss Given 01/15/2024 3:25 PM EST 40,000 Units Arm Right Upper documented in this encounter Advance Directives Documents on File Type Date Recorded Patient Radio Intelligence Operator Expl srinivas ARREOLA 01/26/2021 [place] OR [facility] FOR LIFE-SUSTAINING TREATMENT * No Code (Latest [...] Power of Attor andrew? No Care Teams Cable Maker Relationship Specialty Start Date End Date Jocelyne Desai DO [address] [place] [address] [place] [address] PCP - General Internal Medicine 11/09/16 documented as of this encounter
--- OUTSIDE RECORDS SUMMARY | 2024-01-29 17:43 | External Medical Summary | Summary of Care ---
Author Name Unknown Organization [facility] Address [address] [facility] [place] [address] Phone [phone] Care Team Providers Care Mechanical Ordnance Assembler Name Role Phone Jocelyne Desai Primary Care Provider [phone] Reason for Visit * Reason Comments Follow Up 4 week follow up Encounter Details Date Type Department Care Team (Late st Contact Info) Description 01/15/2024 1:30 PM EST Office Visit Hematology/Oncology [facility] [place] [facility] [phone] Monse Coates MD [address] [facility] [place] [address] Anemia due to stage 4 chronic kidney [...] disease, chronic, stage IV (GFR 15-29 ml/min) ([facility]) Take 1 Tablet by mouth in the morning. 4 Active Calcitriol 0.5 MCG Oral Capsule (Rocaltrol)Indic ations:Kidney disease, chronic, stage IV (GFR 15-29 ml/min) ([facility]),Hypocalcem ia Take 1 Capsule by mouth in the morning. 30 Capsule 5 4 Active documented as of this encounter (statuses as of 01/16/2024) Active Problems Patient Care Coordination No te Formatting of this note migh t be different from the original. Good connectivity [facility] for wound care [phone] Televideo if needed. Problem Noted Date Diagnosed [...] obstruction 06/28/2023 Stasis ulcer 06/28/2023 History of PA (myocardial infarction) 11/09/2021 Trigger ring finger of [...] to rule out osteomyelitis--he will go to [facility] for xray. Non-pressure chronic ulcer o f [...] H/O gastric bypass 11/27/2018 Overview (11/27/2018): [facility] current use of 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 [...] tachycardia) DM neuropathy, type II diabetes mellitus 06/17/2 013 Erectile dysfunction 03/29/2011 DYSLIPIDEMIA, GOAL LDL BELOW 100 01/20/2009 Overview (01/20/2009): Per Lipid Taxonomy. HTN, goal below 140/90 12/19/2008 Overview (12/19/2008): Modified per HTN Taxonomy. Type 2 diabetes mellitus wit h hemoglobin A1c goal of less than 7.5% 12/11/2008 Overview (06/09/2015): Per Diabetes Taxonomy. 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 Not on file Not on file documented as of this encounter Last Filed Vital Signs Vital Sign Reading Time Taken Comments Blood Pressure 126/84 01/15/2024 1:57 PM EST Pulse 90 01/15/2024 1:57 PM EST Temperature 36.3 C (97.3 F) 01/15/2024 1:57 PM ES T Respiratory Rate - - Oxygen Saturation 98% 01/15/2024 1:57 PM EST Inhaled Oxygen Concentration - - Weight 102.7 kg (226 lb 8 oz) 01/15/2024 1:57 PM EST Height - - Body Mass Index 31.59 11/06/2023 1:54 PM EDT documented in this encounter Progress Notes * Monse Coates MD - 01/15/2024 2:06 PM EST Date of visit: 01/15/2024 Diagnoses: Anemia due to stage 4 chronic kidney disease. Iron-deficiency anemia due to chronic blood loss and history of gastric bypass therefore not able to tolerate oral iron therapy. Current treatment: Retacrit, IV iron Treatment Plan Notes 01/15/24: Change dose of Retacrit to 40,000 units every other week. 12/07/23: Change frequency of Retacrit 20,000units from weekly to every other week 12/04/23: Increase RETACRIT dose to 20,000 Units S/q to be given once a week if hemoglobin <11.0g/dL Retacrit 50705 units subQ injection per week to be given if Hemoglobin < 11.0 grams/deciliter CBCd prior to each injection CMP, Ferritin, Iron Screen, B12, Folic Acid every 3 months Subjective Lg Cooley is a 73 year old male presents for 4 week follow up regarding anemia, secondary tochronic kidney disease, on Retacrit. He was last seen in the clinic for office visit on 12/18/2023 for treatment re: anemia with CKD HPI He was initially seen on 11/06/2023 for Hematology-Oncology consultation for further evaluation of anemia secondary to chronic kidney disease, baseline creatinine 4.3 on 11/01/2023 and a history of iron-deficiency anemia. His labs performed on 11/01/2023 on shown Hemoglobin 8.7 g/dL, hematocrit 28%, MCV 93.6 (within normal limits), RDW 19% (higher than the normal range of 11.5- 15.5%) and retic count 1.2%. WBC and platelet count within normal limits. Iron panel shows evidence of iron deficiency with serum iron 25, TIBC 300, TSAT 8% (normal range 15-55%), ferritin 121. Vitamin B12 and folate normal. Patient has CKD with a current creatinine of 4.3 on 11/01/2023. There has been significant worsening in the creatinine since 06/28/2023 (creatinine 3.0) before which his baseline creatinine was around 1.5 -1.7 until 02/23/2023 when his creatinine was 1.7. Has known hyperparathyroidism (possibly associated with the CKD) with the most recent PTH level 361on 11/01/2023. 10/20/2023: Hemoglobin 6.4 11/01/2023: Hemoglobin 8.7 He received intravenous iron therapy with IV Monoferric 1,000 mg was given on 11/06/2023. 11/12/2022: Hemoglobin 7.8 11/20/2023: Started PROCRIT/ RETACRIT 93219 units treatment on 11/20/2023, hemoglobin 8.5 11/27/2023: Retacrit 29020 units given, hemoglobin 8.7 12/04/2023: Received increased dose of CHARLES Retacrit 20,000 units given, hemoglobin 9.0 12/18/2023: Retacrit 44672 units given, hemoglobin 9.7 01/04/2024: Hemoglobin 9.4 01/15/2024: Patient returns today for follow up, hemoglobin 8.8 g/dl, hematocrit 28.9%. Blood pressure 126/84 Reports ongoing fatigue and inability to perform daily tasks. Denies chest pain or worsening of shortness of breath. Reports continued/ ongoing bilateral lower extremity swelling-unchanged HGB Latest Ref Rng 14.0 - 16.8 g/dL 05/20/2019 11.6 ! (E) 06/06/2019 11.9 ! (E) 06/26/2019 12.3 (L) 08/13/2019 14.3 09/18/2019 13.6 (L) 10/17/2019 14.0 04/06/2020 16.2 07/28/2020 16.3 10/16/2020 15.6 09/29/2021 16.0 11/16/2022 12.7 (L) 01/17/2023 13.6 (L) 06/28/2023 9.1 (L) 07/03/2023 9.9 (L) 07/07/2023 9.4 (L) 07/18/2023 11.3 (L) 07/26/2023 10.8 ! (E) 07/31/2023 10.3 ! (E) 08/16/2023 8.3 ! (E) 08/23/2023 8.5 (L) 10/02/2023 8.2 (L) 10/20/2023 6.4 ! (E) 11/01/2023 8.7 (L) 11/13/2023 7.8 ! (E) 11/20/2023 8.5 (L) 11/27/2023 8.7 (L) 12/04/2023 9.0 (L) 12/18/2023 9.7 (L) 01/04/2024 9.4 (L) 01/15/2024 8.8 (L) CREATININE Latest Ref Rng 0.6 - 1.2 mg/dL 05/20/2019 1.35 (E) 06/06/2019 1.48 ! (E) 06/26/2019 1.4 (H) 08/13/2019 1.5 (H) 10/17/2019 1.6 (H) 11/18/2019 1.7 (H) 04/06/2020 1.6 (H) 07/28/2020 1.4 (H) 10/16/2020 1.4 (H) 05/12/2021 1.5 (H) 09/29/2021 1.7 (H) 11/09/2021 04/13/2022 1.48 ! (E) 11/16/2022 1.4 (H) 01/17/2023 1.7 (H) 02/23/2023 1.7 (H) 06/28/2023 3.0 (H) 07/03/2023 2.5 (H) 07/07/2023 2.6 (H) 07/18/2023 2.1 (H) 07/26/2023 3.91 ! (E) 07/31/2023 3.88 ! (E) 08/23/2023 3.1 (H) 08/28/2023 3.33 ! (E) 3.33 ! (E) 09/04/2023 3.26 ! (E) 09/26/2023 4.0 (H) 10/02/2023 4.1 (H) 10/20/2023 4.28 ! (E) 11/01/2023 4.3 (H) 11/13/2023 3.95 ! (E) 11/20/2023 3.8 (H) 11/27/2023 3.9 (H) 12/04/2023 4.1 (H) 01/04/2024 4.1 (H) Iron Iron Binding Capacity Transferrin Saturation Percent Latest Ref Rng 45 - 176 ug/dL 250 - 425 ug/dL 15 - 55 % 06/26/2019 23 (L) 311 7 (L) 08/13/2019 52 320 16 10/17/2019 56 291 19 04/06/2020 65 289 22 10/16/2020 53 266 20 05/13/2022 48 310 15 07/18/2023 30 (L) 270 11 (L) 08/23/2023 19 (L) 311 6 (L) 11/01/2023 25 (L) 300 8 (L) 11/27/2023 44 (L) 260 17 PMH, current medications, allergies, labs were reviewed with the patient. Review of Systems Constitutional: Negative. Respiratory: Negative. Cardiovascular: Positive for leg swelling. BLE edema to knees Gastrointestinal: Negative. Genitourinary: Negative. Skin: Positive for wound. Pt follows with wound clinic, has home nursing for dressing changes. Neurological: Negative. Objective BP 126/84 (BP Site: Left Arm, BP Position: Sitting, BP Cuff Size: Large) | Pulse 90 | Temp 36.3 C(97.3 F) (Tympanic) | Wt 102.7 kg (226 lb 8 oz) | SpO2 98% | BMI 31.59 kg/m | BSA 2.27 m Physical Exam Constitutional: Appearance: Normal appearance. Cardiovascular: Rate and Rhythm: Normal rate and regular rhythm. Pulmonary: Effort: Pulmonary effort is normal. Breath sounds: Normal breath sounds. Musculoskeletal: Right lower leg: Edema present. Left lower leg: Edema present. Neurological: Mental Status: He is alert. ASSESSMENT/PLAN: Patient diagnosed with anemia due to stage 4 chronic kidney disease, in conjunction with iron-deficiency anemia due to chronic blood loss and history of gastric bypass therefore not able to tolerate oral iron therapy. The patient was recommended to start intravenous iron therapy to maintain TSAT> 30% and CHARLES (erythropoietin support). 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) (Primary) - ALTERATION OF TREATMENT PLAN - ALTERATION OF TREATMENT PLAN - IRON SCREEN, INCLUDING TIBC; Future; Expected date: 01/29/2024 - CBC WITH WBC DIFFERENTIAL; Future; Expected date: 01/29/2024 - COMPREHENSIVE METABOLIC PANEL; Future; Expected date: 01/29/2024 Iron deficiency anemia due to chronic blood loss - ALTERATION OF TREATMENT PLAN - IRON SCREEN, INCLUDING TIBC; Future; Expected date: 01/29/2024 Other orders - Epoetin Sam-epbx (Retacrit) 34745 UNIT/ML inj 40,000 Units - Epoetin Sam-epbx (Retacrit) 66125 UNIT/ML inj 40,000 Units Patient returns today for follow up on 01/15/2024. He had received Retacrit 20,000 units on 12/18/2023, hgb 9.7 Treatment Plan Notes 01/15/24: Change dose of Retacrit to 40,000 units every other week. 12/07/23: Change frequency of Retacrit 20,000units from weekly to every other week 12/04/23: Increase RETACRIT dose to 20,000 Units S/q to be given once a week if hemoglobin <11.0g/dL Retacrit 06763 units subQ injection per week to be given if Hemoglobin < 11.0 grams/deciliter CBCd prior to each injection CMP, Ferritin, Iron Screen, B12, Folic Acid every 3 months PLAN OF CARE DISCUSSED WITH PATIENT ON 01/15/2024 : Patient to receive 99349 units Retacrit on 01/15/2024. Patient receive IV iron (monoferric) in the next 1 week Return to clinic for follow up in 2 weeks and to receive next dose of Retacrit- approx around 01/29/2024. Follow-up: Return in about 2 weeks (around 01/29/2024). Patient to receive 80559 units Retacrit today on 01/15/2024. Patient to receive IV iron (monoferric) in the next 1 week Return to clinic for follow up in 2 weeks and to receive next dose of Retacrit (40,000 units) Monse Coates MD documented in this encounter Nursing Notes * Estefania Henderson CMA - 01/15/2024 1:59 PM EST Patient identifed by name and birthdate Do you have any concerns about pain management for today's visit? No Living Will or Advance Directive for Health Care as noted on the problem list. [facility] is a way you can talk to your provider on line through e-mail. Would you like to sign up? I can activate it for you? ALREADY ACTIVE Filed Vitals: 01/15/24 1357 BP: 126/84 Pulse: 90 Temp: 36.3 C (97.3 F) TempSrc: Tympanic SpO2: 98% Weight: 102.7 kg (226 lb 8 oz) Patient was instructed to not get up on the exam table/exam chair until directed and assisted by their provider; patient is to remain seated in the chair/ wheelchair/ exam table/ exam chair for fall prevention and safety reasons. Patient is aware to have assistance to step down off exam table/exam chair with personnel. Patient voiced full comprehension of instructions. documented in this encounter Plan of Treatment Upcoming Encounters Date Type Department Care Team (Late st Contact Info) Description 01/16/2024 6:30 AM EST Anticoagulation Centralized Clinical Pharmacy Services, Ilya Lafleur [address] [place] [address] [place] [address] [place] [address] 01/19/2024 9:00 AM EST Office Visit Gastroenterology [address] [place] [address] Moon Avila CRNP [address] [place] [address] 01/29/2024 1:30 PM EST Laboratory Laboratory [facility]div[facility] [place] 200 [facility] [place] [phone] Kayley Lab [facility] [address] [facility] [place] [address] 01/29/2024 2:00 PM EST Office Visit Hematology/Oncology [facility] [address] [facility] [place] [phone] Monse Coates MD [address] [place] [address] [place] [phone] 01/29/2024 2:30 PM EST Immunization/Injection Hematology/Oncology Treatment, [place] 200 [facility] [place] [phone] Kayley, Chair 7 Hem Onc [address] [place] [address] 02/20/2024 12:30 PM EST Nurse Only Ancillary [address] [place] [address] [place], Nurse [address] [place] [address] 03/08/2024 2:30 PM EST Office Visit Family Medicine [address] [place] [phone] [address] [place] [address] 04/16/2024 3:00 PM EST Office Visit Nephrology [address] [place] [address] Jennifer Agustin MD 200 [facility] [place] [address] Scheduled Orders Name Type Priority Associated Diagnoses Orde r Schedule IRON SCREEN, INCLUDING TIBC Lab Routine 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) Iron deficiency anemia due to chronic blood loss Expected: 01/29/2024, Expires: 01/14/2025 CBC WITH WBC DIFFERENTIAL Lab Routine 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) Expected: 01/29/2024, Expires: 01/14/2025 COMPREHENSIVE METABOLIC PANEL Lab STAT 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) Expected: 01/29/2024, Expires: 01/14/2025 Scheduled Procedures Name Priority Associated Diagnoses Date/Ti [...] encounter Medical Devices Implanted Type Area High Rigger Device Identifier Shelf Expiration Date Model / Serial / Lot Shaft Fibula 6cm [id number] - [id number] Implanted:Qty: 1 on 09/05/2008 at [place] [facility] Tissue - Human N/A: Spine Cervical MUSCULOSKELETAL TRANSPLANT FND 04/20/2010 [id number] / [id number] / Stent Eso Gw 22x70 [id number] - [id number] Implanted:Qty: 1 on 01/21/2008 at [place] [facility] N/A: Esophagus ALVE[employer]US INC 04/12/2009 [id number] / / [id number] Depuy Uniplate 32 Implanted:Qty: 1 on 09/05/2008 [...] [facility] [place] N/A: Neck 1773-06-146 / 1773-06-146 / Plate Zach 3 Level Ti 54mm - [id number] Implanted:Qty: 1 on 05/07/2010 at [place] [facility] N/A: Neck JNJ : DEPUY SPINE [id number] / / Screw Zach Const St Ti 14mm - [id number] Implanted:Qty: 4 on 05/07/2010 at [place] [facility] N/A: Neck JNJ : DEPUY SPINE [id number] 14 / / Screw 3.5x14 Mntr Fa [id number] - [id number] Implanted:Qty: 8 on 05/07/2010 at [place] [facility] N/A: Spine Cervical JNJ : ETHICON CARDIOVATIONS [id number] / / Jarrell [id number] - [id number] Implanted:Qty: 1 on 05/07/2010 at [place] [facility] N/A: Spine Cervical JNJ : ETHICON CARDIOVATIONS [id number] / / Screw Inner Mntr [id number] - [id number] Implanted:Qty: 8 on 05/07/2010 at [place] [facility] N/A: Spine Cervical JNJ : ETHICON CARDIOVATIONS [id number] / / Envista Intraocular Lens Implanted:Qty: 1 on 03/10/2022 by Liang Marshall MD at OR [facility] Right: Eye BAUSCH & LOMB 08/13/2023 [id number] / [id number] / [id number] Envista Intraocular Lens Implanted:Qty: 1 on 03/24/2022 by Liang Marshall MD at OR [facility] Left: Eye BAUSCH & LOMB 07/13/2024 [id number] / [id number] / [id number] documented as of this encounter Visit Diagnoses [...] blood loss (chronic) documented in this encounter Advance Directives Documents on File Type Date Recorded 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 No Care Teams Mechanical Ordnance Assembler Relationship Specialty Start Date End Date Jocelyne Desai DO [address] [place] [address] [place] [address] PCP - General Internal Medicine 11/09/16 documented as of this encounter"
--- OUTSIDE RECORDS SUMMARY | 2024-01-29 17:44 | External Medical Summary | Summary of Care ---
Author Name Unknown Organization [facility] Address [address] [place] [facility] [place] [address] Phone [phone] Care Team Providers Care Marine Insulator Name Role Phone Jocelyne Desai Primary Care Provider [phone] Reason for Visit * Reason Onset Date Comments Test Results 01/10/2024 Encounter Details Date Type Department Care Team (Late st Contact Info) Description 01/10/2024 Telephone NephrologyCely [address] [place] [address] Jennifer Agustin MD 200 [facility] [place] [address] Test Results Allergies No known active allergiesdocumented as of this encounter (statuses as of 01/10/2024) Medications ACETAMINOPHEN 500 MG PO TABS 2 [...] IV (GFR 15-29 ml/min) ([facility]) Take 1 Tablet by mouth in the morning. 4 Active Calcitriol 0.5 MCG Oral Capsule (Rocaltrol)Indic ations:Kidney disease, chronic, stage IV (GFR 15-29 ml/min) ([facility]),Hypocalcem ia Take 1 Capsule by mouth in the morning. 30 Capsule 5 4 Active documented as of this encounter (statuses as of 01/10/2024) Active Problems Patient Care Coordination No te Formatting of this note migh t be different from the original. Good connectivity [facility] for wound care [phone] Televideo if needed. Problem Noted Date Diagnosed [...] out osteomyelitis--he will go to [facility] for xray. Non-pressure chronic ulcer o [...] H/O gastric bypass 11/27/2018 Overview (11/27/2018): [facility] current use of anticoagulant [...] ICD-10 update of inactive term PLATT RESEARCH OTHER*[id number] 02/20/2007 SPINAL STENOSIS-LUMBAR 09/23/2002 Vitamin D deficiency Cervical spinal stenosis documented as of this encounter (statuses as of 01/10/2024) Resolved Problems Problem Noted Date Diagnosed Date Resolved Date Chronic kidney disease (CKD) , stage IV (severe) 09/27/2023 10/26/2023 Depression, unspecified 11/09/202104/14 Depression, unspecified 11/09/2021 100 05/2022 Cellulitis of right leg 07/13/2021 1005/2022 Assessment & Plan (07/13/2021 12:14 PM EDT): Suspect this could be early/localized. Will treat with 7 days antibiotic. If pt cannot be reassess by Dr. 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 I do note high normal potassium and progressivelylower calcium. -lower potassium supplements to daily from twice daily still 20 mEq each time -start calcitriol 0.5 mcgs daily -after about 7-10 days on calcitriol, repeat basic metabolic panel and serum albumin and phosphorus [facility] sent documented in this encounter Plan of Treatment Upcoming Encounters Date Type Department Care Team (Late st Contact Info) Description 01/15/2024 1:10 PM EST Laboratory Laboratory [facility] 200 [facility] [place] [phone] Kayley, Lab [address] [place] [address] 01/15/2024 1:30 PM EST Office Visit Hematology/Oncology [facility] [place] 200 [facility] [place] [phone] Monse Coates MD [address] [place] [address] [place] [phone] 01/15/2024 2:00 PM EST Immunization/Injection Hematology/Oncology Treatment, [place] [address] [facility] [place] [phone] Kayley, Chair 7 Hem Onc [facility] [address] [facility] [place] [address] 01/16/2024 6:30 AM EST Anticoagulation Centralized Clinical Pharmacy Services, Ilya Lafleur [address] [place] [address] [place] [address] [place] [address] 01/19/2024 9:00 AM EST Office Visit Gastroenterology [address] [place] [address] Moon Avila CRNP [address] [place] [address] 02/20/2024 12:30 PM EST Nurse Only Ancillary [address] [place] [address] [place], Nurse Annual [address] [place] [address] 03/08/2024 2:30 PM EST Office Visit Family Medicine [address] [place] [phone] Jocelyne Desai, [address] [place] [address] 04/16/2024 3:00 PM EST Office Visit Nephrology [address] [place] [address] Jennifer Agustin MD 200 [facility] [place] [address] Scheduled Procedures Name Priority Associated Diagnoses Date/Ti [...] this encounter Medical Devices Implanted Type Area Fire Boss Device Identifier Shelf Expiration Date Model / Serial / Lot Shaft Fibula 6cm [id number] - [id number] Implanted:Qty: 1 on 09/05/2008 at [place] [facility] [place] Tissue - Human N/A: Spine Cervical MUSCULOSKELETAL TRANSPLANT FND 04/20/2010 [id number] / [id number] 0P / Stent Eso Gw 22x70 [id number] - [id number] Implanted:Qty: 1 on 01/21/2008 at OR [facility] [place] N/A: Esophagus ALVEOLUS INC 04/12/2009 75218-012 / / [id number] Depuy Uniplate 32 Implanted:Qty: 1 on 09/05/2008 at OR [facility] [place] N/A: Spine Cervical TAMMY & TAMMY DEPUY 302 / / Depuy Uniplate Screw 14mm Implanted:Qty: 2 on 09/05/2008 at OR [facility] [place] N/A: Spine Cervical TAMMY & TAMMY DEPUY 1896-07-017 / / Depuy Lordotic Bengal Cage Implanted:Qty: 1 on 05/07/2010 at OR [facility] [place] N/A: Neck 1773-06-146 / 1773-06-146 / Plate Zach 3 Level Ti 54mm - [id number] Implanted:Qty: 1 on 05/07/2010 at OR [facility] [place] N/A: Neck JNJ : DEPUY SPINE [id number] / / Screw Zach Const St Ti 14mm - [id number] Implanted:Qty: 4 on 05/07/2010 at OR [facility] [place] N/A: Neck JNJ : DEPUY SPINE [id number] 14 / / Screw 3.5x14 Mntr Fa [id number] - [id number] Implanted:Qty: 8 on 05/07/2010 at OR [facility] [place] N/A: Spine Cervical JNJ : ETHICON CARDIOVATIONS [id number] / / Jarrell [id number] - [id number] Implanted:Qty: 1 on 05/07/2010 at OR [facility] [place] N/A: Spine Cervical JNJ : ETHICON CARDIOVATIONS [id number] / / Screw Inner Mntr [id number] - [id number] Implanted:Qty: 8 on 05/07/2010 at OR [facility] [place] N/A: Spine Cervical JNJ : ETHICON CARDIOVATIONS [id number] / / Envista Intraocular Lens Implanted:Qty: 1 on 03/10/2022 by Liang Marshall MD at OR [facility] Right: Eye BAUSCH & LOMB 08/13/2023 [id number] / [id number] / [id number] Envista Intraocular Lens Implanted:Qty: 1 on 03/24/2022 by Liang Marshall MD at OR [facility] Left: Eye BAUSCH & LOMB 07/13/2024 [id number] / [id number] / [id number] documented as of this encounter Advance Directives Documents on File Type Date Recorded 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 No Care Teams Marine Insulator Relationship Specialty Start Date End Date Jocelyne Desai DO [address] [place] [address] [place] [address] PCP - General Internal Medicine 11/09/16 documented as of this encounter
--- OUTSIDE RECORDS SUMMARY | 2024-01-29 17:44 | External Medical Summary | Summary of Care ---
Author Name Unknown Organization [facility] Address [address] [facility] [place] [address] Phone [phone] Care Team Providers Care Mortgage Servicing Specialist Name Role Phone Jocelyne Desai Primary Care Provider [phone] Reason for Visit * Reason Onset Date Comments Precert Future 01/15/2024 Retacrit/Monofer aneesh Encounter Details Date Type Department Care Team (Late st Contact Info) Description 01/15/2024 Telephone Hematology/Oncology Christian Kayley [place] [facility] [address] Monse Coates MD [address] [place] [address] [place] [address] Precert Future (Retacrit/Monoferric) Allergies [...] stage IV (GFR 15-29 ml/min) ([facility]) Take 1 Tablet by mouth in the morning. 4 Active Calcitriol 0.5 MCG Oral Capsule (Rocaltrol)Indic ations:Kidney disease, chronic, stage IV (GFR 15-29 ml/min) ([facility]),Hypocalcem ia Take 1 Capsule by mouth in the morning. 30 Capsule 5 Active documented as of this encounter (statuses as of 01/15/2024) Active Problems Patient Care Coordination No te Formatting of this note migh t be different from the original. Good connectivity [facility] for wound care [phone] Televideo if needed. Problem Noted Date Diagnosed [...] to rule out osteomyelitis--he will go to [facility] for xray. Non-pressure chronic ulcer o [...] ICD-10 update of inactive term PLATT RESEARCH OTHER*[id number] 02/20/2007 SPINAL STENOSIS-LUMBAR 09/23/2002 Vitamin D deficiency [...] 11/17/19 23 LUMBAGO 12/24/2002 05/09/2007 LOC PRIM [id number] 12/24/200208/13 DEGENERATIVE SKIN DISORD 12/24/2002 VERTEBRAL FX [...] No 10/31/2023 Does the household have a crownpoint health care facilitylar source of income? 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 Stat message sent to damion and this RN advised that auth is [...] Centralized Clinical Pharmacy Services, Ilya Lafleur [address] [place] [address] [place] [address] [facility], [address] [place] [address] 01/19/2024 9:00 AM EST Office Visit Gastroenterology [address] [place] [address] Moon Avila CRNP [address] [facility] [place] [address] 01/29/2024 1:30 PM EST Laboratory Laboratory [facility] Friona [address] [place] [address] Kayley, Lab [facility] 200 [facility] [place] [address] 01/29/2024 2:00 PM EST Office Visit Hematology/Oncology [facility] Friona [address] [place] [phone] Monse Coates MD [address] [place] [address] [place] [phone] 01/29/2024 2:30 PM EST Immunization/Injection Hematology/Oncology Treatment, Friona [address] [place] [phone] Kayley, Chair 7 Hem Onc [facility] 200 [facility] [place] [address] 02/20/2024 12:30 PM EST Nurse Only Ancillary [address] [place] [address] Marleeey, Nurse [facility] [address] [place] [address] [place] [address] 03/08/2024 2:30 PM EST Office Visit Family Medicine [address] [place] [phone] Jocelyne Desai, [address] [place] [address] 04/16/2024 3:00 PM EST Office Visit Nephrology [address] [place] [address] Jennifer Agustin MD [address] [place] [address] Scheduled Procedures Name Priority Associated Diagnoses Date/Ti [...] 02/17/2024 02/16/2023, 02/09/2022, 02/08/2021 HbA1c 02/23/2024 08/23/2023, 100 05/2022, 11/09/2022, Additional history exists GFR 07/03/2024 01/04/2024, 1002/2023, 11/27/2023, Additional history exists Depression Screening 10/30/2024 [...] this encounter Medical Devices Implanted Type Area Telephonic Case Manager Device Identifier Shelf Expiration Date Model / Serial / Lot Shaft Fibula 6cm [id number] - [id number] Implanted:Qty: 1 on 09/05/2008 at [place] [facility] Tissue - Human N/A: Spine Cervical MUSCULOSKELETAL TRANSPLANT FND 04/20/2010 [id number] / [id number] / Stent Eso Gw 22x70 [id number] - [id number] Implanted:Qty: 1 on 01/21/2008 at OR [facility] [place] N/A: Esophagus [employer] 04/12/2009 09450-850 / / [id number] Depuy Uniplate 32 Implanted:Qty: 1 on 09/05/2008 [...] Plate Zach 3 Level Ti 54mm - [id number] Implanted:Qty: 1 on 05/07/2010 at OR [facility] N/A: Neck JNJ : DEPUY SPINE [id number] 54 / / Screw Zach Const St Ti 14mm - [id number] Implanted:Qty: 4 on 05/07/2010 at OR [facility] N/A: Neck JNJ : DEPUY SPINE [id number] 14 / / Screw 3.5x14 Mntr Fa [id number] - [id number] Implanted:Qty: 8 on 05/07/2010 at OR [facility] [place] N/A: Spine Cervical JNJ : ETHICON CARDIOVATIONS [id number] / / Jarrell [id number] - [id number] Implanted:Qty: 1 on 05/07/2010 at OR [facility] N/A: Spine Cervical JNJ : ETHICON CARDIOVATIONS [id number] / / Screw Inner Mntr [id number] - [id number] Implanted:Qty: 8 on 05/07/2010 at OR [facility] N/A: Spine Cervical JNJ : ETHICON CARDIOVATIONS [id number] / / Envista Intraocular Lens Implanted:Qty: 1 on 03/10/2022 by Liang Marshall MD at OR [facility] Right: Eye BAUSCH & LOMB 08/13/2023 [id number] / [id number] / [id number] Envista Intraocular Lens Implanted:Qty: 1 on 03/24/2022 by Liang Marhsall MD at OR [facility] Left: Eye BAUSCH & LOMB 07/13/2024 [id number] / [id number] / [id number] documented as of this encounter Advance Directives Documents on File Type Date Recorded Patient Manager Rfid Expl anation POLST 01/26/[address] [place] [address] [facility] [...] Power of Attor andrew? No Care Teams Mortgage Servicing Specialist Relationship Specialty Start Date End Date Jocelyne Desai DO [address] [place] [address] [place] [address] PCP - General Internal Medicine 11/09/16 documented as of this encounter
--- OUTSIDE RECORDS SUMMARY | 2024-01-29 17:44 | External Medical Summary ---
Author Name Unknown Address Unknown Organization K09:[facility] [place] [address] Laboratory Report Ordering Provider Test Date Status ENMANUEL REARDON 01/15/2024 13:30:56 Final Observation Date Value Abnormality Reference (Units ) Status WBC, Total 01/15/2024 13:30:56 4.96 4.00-10.8 0 (K/uL) Final RBC 01/15/2024 13:30:56 3.17 4.50-5.25 (M/uL) Final Hemoglobin 01/15/2024 13:30:56 8.8 Below low normal 14 .0-16.8 (g/dL) Final HCT 01/15/2024 13:30:56 28.9 Below low normal 40. 0-48.4 (%) Final MCV 01/15/2024 13:30:56 91.2 82.0-99.5 (fL) Final MCH 01/15/2024 13:30:56 27.8 27.0-34.0 (pg) Final MCHC 01/15/2024 13:30:56 30.4 32.0-36.0 (g/dL) Final RDW 01/15/2024 13:30:56 17.0 11.5-15.5 (%) Final Platelets 01/15/2024 13:30:56 174 140-400 (K /uL) Final MPV 01/15/2024 13:30:56 10.3 6.6-11.1 ( fL) Final Performing Location [facility] [place] [address]
--- OUTSIDE RECORDS SUMMARY | 2024-01-29 17:44 | External Medical Summary | Summary of Care ---
Author Name Unknown Organization [facility] Address [address] [facility] [place] [address] Phone [phone] Care Team Providers Care Appellate Court Judge Name Role Phone Jocelyne Desai DO Primary Care Provider + [phone] Encounter Details Date Type Department Care Team (Late st Contact Info) Description 01/15/2024 Population Health External Data Unspecified Department Allergies [...] disease, chronic, stage IV (GFR 15-29 ml/min) ([facility]) Take 1 Tablet by mouth in the morning. 4 Active Calcitriol 0.5 MCG Oral Capsule (Rocaltrol)Indic ations:Kidney disease, chronic, stage IV (GFR 15-29 ml/min) ([facility]),Hypocalcem ia Take 1 Capsule by mouth in the morning. 30 Capsule 5 4 Active documented as of this encounter (statuses as of 01/15/2024) Active Problems Patient Care Coordination No te Formatting of this note migh t be different from the original. Good connectivity [facility] for wound care [phone] Televideo if needed. Problem Noted Date Diagnosed [...] to rule out osteomyelitis--he will go to [facility] for xray. 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 current use of 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 [...] ICD-10 update of inactive term PLATT RESEARCH OTHER*[id number] 02/20/2007 SPINAL STENOSIS-LUMBAR 09/23/2002 Vitamin D deficiency Cervical spinal stenosis documented as of this encounter (statuses as of 01/15/2024) Resolved Problems Problem Noted Date Diagnosed Date Resolved Date Chronic kidney disease (CKD) , stage IV (severe) 09/27/2023 10/26/2023 Depression, unspecified 11/09/2021 03/ Depression, unspecified 11/09/2021 1005/2022 Cellulitis of right [...] 02/27/2003 11/17/19 LUMBAGO 12/24/2002 05/09/2007 LOC PRIM [id number] 12/24/200208/13 DEGENERATIVE SKIN DISORD 12/24/2002 VERTEBRAL FX [...] 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 e Not on file Not on file Not on file Not on file Not on file 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 Not on file Not on file documented as of this encounter Plan of Treatment Upcoming Encounters Date Type Department Care Team (Late st Contact Info) Description 01/15/2024 1:10 PM EST Laboratory Laboratory [facility] [place] [phone] [place] [address] 01/15/2024 1:30 PM EST Office Visit Hematology/Oncology [facility] [place] [phone] Monse Coates MD [address] [place] [address] [place] [address] 01/15/2024 2:00 PM EST Immunization/Injection Hematology/Oncology Treatment, [place] [address] [facility] [place] [phone] Kayley, Chair 7 Hem Onc [address] 200 [facility] [place] [address] 01/16/2024 6:30 AM EST Anticoagulation Centralized Clinical Pharmacy Services, Ilya Lafleur [address] [place] [address] [place] [address] [facility], [address] [place] [address] 01/19/2024 9:00 AM EST Office Visit Gastroenterology [address] [place] [address] Moon Avila, AIRLINE TICKET AGENT [address] [place] [address] 01/29/2024 1:30 PM EST Laboratory Laboratory [facility] [place] 200 [facility] [place] [phone] Kayley, Lab [address] 200 [facility] [place] [address] 01/29/2024 2:00 PM EST Immunization/Injection Hematology/Oncology Treatment, [place] 200 [facility] [place] [phone] Kayley, Chair 7 Hem Onc [address] 200 [facility] [place] [address] 02/20/2024 12:30 PM EST Nurse Only Ancillary [address] [place] [address] Nurse Moncho [address] [place] [address] 03/08/2024 2:30 PM EST Office Visit Family Medicine [address] [place] [phone] [address] [place] [address] 04/16/2024 3:00 PM EST Office Visit Nephrology [address] [place] [address] Jennifer Agustin MD [address] [place] [address] Scheduled Procedures Name Priority Associated Diagnoses Date/Ti [...] 10/0 05/2022, 11/09/2022, Additional history exists GFR 07/03/2024 [...] this encounter Medical Devices Implanted Type Area Feed Handler Device Identifier Shelf Expiration Date Model / Serial / Lot Shaft Fibula 6cm [id number] - [id number] Implanted:Qty: 1 on 09/05/2008 at [place] [facility] [place] Tissue - Human N/A: Spine Cervical MUSCULOSKELETAL TRANSPLANT FND 04/20/2010 664383 / [id number] / Stent Eso Gw 22x70 21790-646 - [id number] Implanted:Qty: 1 on 01/21/2008 at OR [facility] N/A: Esophagus [employer]US INC 04/12/2009 79127-607 / / [id number] Depuy Uniplate 32 Implanted:Qty: 1 on 09/05/2008 [...] Plate Zach 3 Level Ti 54mm - [id number] Implanted:Qty: 1 on 05/07/2010 at OR [facility] N/A: Neck JNJ : DEPUY SPINE 4777664 54 / / Screw Zach Const St Ti 14mm - [id number] Implanted:Qty: 4 on 05/07/2010 at OR [facility] N/A: Neck JNJ : DEPUY SPINE 1343895 14 / / Screw 3.5x14 Mntr Fa [id number] - [id number] Implanted:Qty: 8 on 05/07/2010 at OR [facility] N/A: Spine Cervical JNJ : ETHICON CARDIOVATIONS [id number] / / Jarrell [id number] - [id number] Implanted:Qty: 1 on 05/07/2010 at OR [facility] N/A: Spine Cervical JNJ : ETHICON CARDIOVATIONS [id number] / / Screw Inner Mntr [id number] - [id number] Implanted:Qty: 8 on 05/07/2010 at OR [facility] N/A: Spine Cervical JNJ : ETHICON CARDIOVATIONS [id number] / / Envista Intraocular Lens Implanted:Qty: 1 on 03/10/2022 by Liang Marshall MD at OR [facility] Right: Eye BAUSCH & LOMB 08/13/2023 [id number] / [id number] / [id number] Envista Intraocular Lens Implanted:Qty: 1 on 03/24/2022 by Liang Marshall MD at OR [facility] Left: Eye BAUSCH & LOMB 07/13/2024 [id number] / [id number] / [id number] documented as of this encounter Advance Directives Documents on File Type Date Recorded Patient Beader Tender Expl eyalpari MAXWELL 01/26/2021 [place] OR [facility] FOR [...] Power of Attor andrew? No Care Teams Appellate Court Judge Relationship Specialty Start Date End Date Jocelyne Desai DO [address] [place] [address] [place] [address] PCP - General Internal Medicine 11/09/16 documented as of this encounter
--- OUTSIDE RECORDS SUMMARY | 2024-01-29 17:44 | External Medical Summary | Summary of Care ---
Author Name Unknown Organization [facility] Address [address] [facility] [address] Phone [phone] Care Team Providers Care Tube Closing Machine Operator Name Role Phone Jocelyne Desai Primary Care Provider Encounter Details Date Type Department Care Team (Late st Contact Info) Description 01/15/2024 Orders Only Hematology/Oncology [facility]ely Zaldivar [place] 200 [facility] [address] Monse Coates MD [address] [facility] [place] [address] Allergies No known active allergiesdocumented as of [...] stage IV (GFR 15-29 ml/min) ([facility]),Hypocalcem ia Take 1 Capsule by mouth in the morning. 30 Capsule 5 4 Active documented as of this encounter (statuses as of 01/15/2024) Active Problems Patient Care Coordination No te Formatting of this note migh t be different from the original. Good connectivity [facility] for wound care [phone] Televideo if needed. Problem Noted Date Diagnosed [...] to rule out osteomyelitis--he will go to [facility] for xray. 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 Not on file Not on file documented as of this encounter Plan of Treatment Upcoming Encounters Date Type Department Care Team (Late st Contact Info) Description 01/16/2024 6:30 AM EST Anticoagulation Centralized Clinical Pharmacy Services, Ilya Lafleur [address] [place] [address] [place] [address] [place] [address] 01/19/2024 9:00 AM EST Office Visit Gastroenterology [address] [place] [address] Moon Avila CRNP [address] [place] [address] 01/29/2024 1:30 PM EST Laboratory Laboratory [facility] [place] [address] [place] [address] Kayley, Lab [address] [place] [address] 01/29/2024 2:00 PM EST Office Visit Hematology/Oncology [facility] [address] [place] [phone] Monse Coates MD [address] [place] [address] [place] [address] 01/29/2024 2:30 PM EST Immunization/Injection Hematology/Oncology Treatment, [place] [address] [place] [phone] Kayley, Chair 7 Hem Onc Scene 200 [facility] [place] [address] 02/20/2024 12:30 PM EST Nurse Only Ancillary [address] [place] [address] Lesteralley, Nurse [address] [place] [address] 03/08/2024 2:30 PM EST Office Visit Family Medicine [address] [place] [phone] Jocelyne Desai, [address] [place] [address] 04/16/2024 3:00 PM EST Office Visit Nephrology [address] [place] [address] Jennifer Agustin MD 200 [place] [address] Scheduled Procedures Name Priority Associated Diagnoses Date/Ti [...] this encounter Medical Devices Implanted Type Area Vision Teacher Device Identifier Shelf Expiration Date Model / Serial / Lot Shaft Fibula 6cm [id number] - [id number] Implanted:Qty: 1 on 09/05/2008 [place] [facility] [place] - Human N/A: Spine Cervical MUSCULOSKELETAL TRANSPLANT FND 04/20/2010 [id number] / [id number] 0P / Stent Eso Gw 22x70 [id number] - [id number] Implanted:Qty: 1 on 01/21/2008 [place] [facility] N/A: Esophagus ALVEOLUS INC 04/12/2009 89673-643 / / [id number] Depuy Uniplate 32 Implanted:Qty: 1 on 09/05/2008 [place] Neck 1773-06-146 / 1773-06-146 / Plate Zach 3 Level Ti 54mm - [id number] Implanted:Qty: 1 on 05/07/2010 [place] [facility] N/A: Neck JNJ : DEPUY SPINE [id number] 54 / / Screw Zach Const St Ti 14mm - [id number] Implanted:Qty: 4 on 05/07/2010 [place] [facility] N/A: Neck JNJ : DEPUY SPINE [id number] 14 / / Screw 3.5x14 Mntr Fa [id number] - [id number] Implanted:Qty: 8 on 05/07/2010 [place] [facility] [place]/A: Spine Cervical JNJ : ETHICON CARDIOVATIONS [id number] / / Jarrell [id number] - [id number] Implanted:Qty: 1 on 05/07/2010 [place] [facility] N/A: Spine Cervical JNJ : ETHICON CARDIOVATIONS [id number] / / Screw Inner Mntr [id number] - [id number] Implanted:Qty: 8 on 05/07/2010 [place] [facility] N/A: Spine Cervical JNJ : ETHICON CARDIOVATIONS [id number] / / Envista Intraocular Lens Implanted:Qty: 1 on 03/10/2022 by Liang Marshall MD at OR [facility] Right: Eye BAUSCH & LOMB 08/13/2023 [id number] / [id number] / [id number] Envista Intraocular Lens Implanted:Qty: 1 on 03/24/2022 by Liang Marshall MD at OR [facility] Left: Eye BAUSCH & LOMB 07/13/2024 [id number] / [id number] / [id number] documented as of this encounter Advance Directives Documents on File Type Date Recorded Patient Biological Technical Officer Expl anation POLST 01/26/2021 [place] OR [facility] FOR [...] Power of Attor andrew? No Care Teams Tube Closing Machine Operator Relationship Specialty Start Date End Date Jocelyne Desai DO [address] [place] [address] [place] [address] PCP - General Internal Medicine 11/09/16 documented as of this encounter
--- OUTSIDE RECORDS SUMMARY | 2024-01-29 17:44 | External Medical Summary | Summary of Care ---
Author Name Unknown Organization [facility] Address [address] [facility] [place] [address] Phone [phone] Care Team Providers Care Insole Doubler Name Role Phone Jocelyne Desai Primary Care Provider + [phone] Reason for Visit * Reason Comments Outpatient Testing Encounter Details Date Type Department Care Team (Late st Contact Info) Description 01/15/2024 1:10 PM EST Laboratory Laboratory [facility] [place] [address] [place] [phone] [facility] [address] [place] [address] Chronic atrial fibrillation (HCC); Anemia due to stage 4 chronic [...] disease, chronic, stage IV (GFR 15-29 ml/min) ([facility]) Take 1 Tablet by mouth in the morning. 4 Active Calcitriol 0.5 MCG Oral Capsule (Rocaltrol)Indic ations:Kidney disease, chronic, stage IV (GFR 15-29 ml/min) ([facility]),Hypocalcem ia Take 1 Capsule by mouth in the morning. 30 Capsule 5 4 Active documented as of this encounter (statuses as of 01/15/2024) Active Problems Patient Care Coordination No te Formatting of this note migh t be different from the original. Good connectivity [facility] for wound care [phone] Televideo if needed. Problem Noted Date Diagnosed [...] with podiatry,. Letter in chart from [facility] podiatry they were unable to get in touch with him. Given phone number to call and make appt. He stated he is willing to do this. Assessment & Plan (07/13/2021 12:15 PM EDT): Toe ulcer present>1 month. Needs xray to rule out osteomyelitis--he will go to [facility] for xray. 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 Not on file Not on file Not on file Not on file 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 Not on file Not on file documented as of this encounter Plan of Treatment Upcoming Encounters Date Type Department Care Team (Late st Contact Info) Description 01/15/2024 2:00 PM EST Immunization/Injection Hematology/Oncology Treatment, [place] [address] [place] [address] Kayley, Chair 7 Hem Onc Scenery [address] [place] [address] Arrived 01/16/2024 6:30 AM EST Anticoagulation Centralized Clinical Pharmacy Services, Ilya Lafleur [address] [place] [address] [place] [address] [facility], [address] [place] [address] 01/19/2024 9:00 AM EST Office Visit Gastroenterology [address] [place] [address] Moon Avila CRNP [address] [place] [address] 01/29/2024 1:30 PM EST Laboratory [facility] Sc[facility] [address] [place] [phone] Kayley, Lab Scenery [address] [place] [address] 01/29/2024 2:00 PM EST Immunization/Injection Hematology/Oncology Treatment, [place] [address] [place] [phone] Kayley, Chair 7 Hem Onc Scenery [address] [place] [address] 02/20/2024 12:30 PM EST Nurse Only Ancillary [address] [place] [address] Lesteralley, Nurse [address] [place] [address] 03/08/2024 2:30 PM EST Office Visit Family Medicine [address] [place] [phone] [place] [address] 04/16/2024 3:00 PM EST Office Visit Nephrology [address] [place] [address] Jennifer Agustin MD [address] [place], [place] [address] Pending Results Name Type Priority Associated Diagnoses Date /Time PT INR Lab Routine Chronic atrial fibrillation (HCC) 01/15/2024 1:30 PM EST CBC WITH WBC DIFFERENTIAL Lab STAT 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) Iron deficiency anemia due to chronic blood loss 01/15/2024 1:30 PM EST CBC Lab STAT 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) Iron deficiency anemia due to chronic blood loss 01/15/2024 1:30 PM EST DIFFERENTIAL, AUTOMATED Lab STAT 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) Iron deficiency anemia due to chronic blood loss 01/15/2024 1:30 PM EST Scheduled Procedures Name Priority Associated [...] this encounter Medical Devices Implanted Type Area Banking Teacher Device Identifier Shelf Expiration Date Model / Serial / Lot Shaft Fibula 6cm [id number] - [id number] [place]ed:Q[place] 1 [place] [facility] [place] N/A: Spine Cervical MUSCULOSKELETAL TRANSPLANT FND 04/20/2010 [id number] / [id number] 0P / Stent Eso Gw 22x70 [id number] - [id number] Implanted:Qty: 1 on 01/21/2008 [place] [facility] [place]A: Esophagus ALVEOLUS INC 04/12/2009 [id number] / / [id number] Depuy Uniplate 32 Implanted:Qty: 1 on 09/05/2008 [...] Plate Zach 3 Level Ti 54mm - [id number] Implanted:Qty: 1 on 05/07/2010 [place] [facility] [place]: Neck JNJ : DEPUY SPINE [id number] / / Screw Zach Const St Ti 14mm - [id number] Implanted:Qty: 4 on 05/07/2010 [place] [facility] [place]A: Neck JNJ : DEPUY SPINE [id number] 14 / / Screw 3.5x14 Mntr Fa [id number] - [id number] Implanted:Qty: 8 on 05/07/2010 [place] [facility] [place]: Spine Cervical JNJ : ETHICON CARDIOVATIONS [id number] / / Jarrell [id number] - [id number] Implanted:Qty: 1 on 05/07/2010 [place] [facility] [place]: Spine Cervical JNJ : ETHICON CARDIOVATIONS [id number] / / Screw Inner Mntr [id number] - [id number] Implanted:Qty: 8 on 05/07/2010 [place] [facility] [place]A: Spine Cervical JNJ : ETHICON CARDIOVATIONS [id number] / / Envista Intraocular Lens Implanted:Qty: 1 on 03/10/2022 by Liang Marshall MD at OR [facility] Right: Eye BAUSCH & LOMB 08/13/2023 [id number] / [id number] / [id number] Envista Intraocular Lens Implanted:Qty: 1 on 03/24/2022 by Liang Marshall MD at OR [facility] Left: Eye BAUSCH & LOMB 07/13/2024 [id number] / [id number] / [id number] documented as of this encounter Visit Diagnoses Diagnosis Right great toe amputee (HCC)- Primary Diabetic ulcer of toe of right foot associated with type 2 diabetes mellitus, limited to breakdown of skin ([facility]) Cellulitis of right leg Cellulitis and abscess of leg, except foot Type 2 diabetes, controlled, with peripheral neuropathy ([facility]) Type II or unspecified type diabetes mellitus with neurological manifestations, not stated as uncontrolled Status post amputation of lesser toe of right foot ([facility]) Type 2 diabetes mellitus with stage 3b chronic kidney disease, with long-term current use of insulin ([facility]) Venous insufficiency of both lower extremities Multiple open wounds of left lower leg Type 2 diabetes mellitus with peripheral vascular disease ([facility]) Diabetic ulcer of toe of right foot associated with type 2 diabetes mellitus, limited to breakdown of skin ([facility])- Primary Chronic atrial fibrillation (HCC) Atrial fibrillation 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) Iron deficiency anemia due to chronic blood loss Iron deficiency anemia secondary to blood loss (chronic) documented in this encounter Advance Directives Documents on File Type Date Recorded Patient Automatic I Threading Machine Feeder Expl srinivas ARREOLA 01/26/2021 [place] [facility]SU[facility] TREATMENT [...] Power of Attor andrew? No Care Teams Insole Doubler Relationship Specialty Start Date End Date Jocelyne Desai DO [address] [place] [address] [place] [address] PCP - General Internal Medicine 11/09/16 documented as of this encounter
--- OUTSIDE RECORDS SUMMARY | 2024-01-29 17:44 | External Medical Summary | Summary of Care ---
Author Name Unknown Organization [facility] [address] [facility] [place] [address] Phone [phone] Care Team Providers Care Braiding Machine Operator Name Role Phone Jocelyne Desai Primary Care Provider Encounter Details Date Type Department Care Team (Late st Contact Info) Description 01/15/2024 Orders Only Hematology/Oncology [facility] [facility] [address] Monse Coates MD [address] [facility] [address] Allergies No known active allergiesdocumented as [...] disease, chronic, stage IV (GFR 15-29 ml/min) ([facility]) Take 1 Tablet by mouth in the morning. 4 Active Calcitriol 0.5 MCG Oral Capsule (Rocaltrol)Indic ations:Kidney disease, chronic, stage IV (GFR 15-29 ml/min) ([facility]),Hypocalcem ia Take 1 Capsule by mouth in the morning. 30 Capsule 5 4 Active documented as of this encounter (statuses as of 01/15/2024) Active Problems Patient Care Coordination No te Formatting of this note migh t be different from the original. Good connectivity [facility] for wound care [phone] Televideo if needed. Problem Noted Date Diagnosed [...] to rule out osteomyelitis--he will go to [facility] for xray. 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 Not on file Not on file Not on file Not on file 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 Not on file Not on file documented as of this encounter Plan of Treatment Upcoming Encounters Date Type Department Care Team (Late st Contact Info) Description 01/16/2024 6:30 AM EST Anticoagulation Centralized Clinical Pharmacy Services, Ilya Lafleur [address] [place] [address] [place] [address] [place] [address] 01/19/2024 9:00 AM EST Office Visit Gastroenterology [address] [place] [address] Moon Avila CRNP [address] [place] [address] 01/29/2024 1:30 PM EST Laboratory Laboratory [facility] [place] [address] [place] [address] Kayley, Lab Scenery [address] [place] [address] 01/29/2024 2:00 PM EST Office Visit Hematology/Oncology [facility] [address] [place] [address] Monse Coates MD [address] [place] [address] [place] [address] 01/29/2024 2:30 PM EST Immunization/Injection Hematology/Oncology Treatment, [place] [address] [place] [address] Kayley, Chair 7 Hem Onc Scene 200 [facility] [place] [address] 02/20/2024 12:30 PM EST Nurse Only Ancillary [address] [place] [address] Lesteralley, Nurse [address] [place] [address] 03/08/2024 2:30 PM EST Office Visit Family Medicine [address] [place] [phone] Jocelyne Desai, [address] [place] [address] 04/16/2024 3:00 PM EST Office Visit Nephrology [address] [place] [address] Jennifer Agustin MD 200 [place] [address] Scheduled Procedures Name Priority Associated Diagnoses Date/Ti [...] this encounter Medical Devices Implanted Type Area Rear Load Truck Driver Device Identifier Shelf Expiration Date Model / Serial / Lot Shaft Fibula 6cm [id number] - [id number] Implanted:Qty: 1 on 09/05/2008 [place] [facility] [place] - Human N/A: Spine Cervical MUSCULOSKELETAL TRANSPLANT FND 04/20/2010 [id number] / [id number] 0P / Stent Eso Gw 22x70 [id number] - [id number] Implanted:Qty: 1 on 01/21/2008 [place] [facility] [place] N/A: Esophagus ALVEOLUS INC 04/12/2009 13252-720 / / [id number] Depuy Uniplate 32 Implanted:Qty: 1 on 09/05/2008 [...] Plate Zach 3 Level Ti 54mm - [id number] Implanted:Qty: 1 on 05/07/2010 [place] [facility] [place]/A: Neck JNJ : DEPUY SPINE [id number] 54 / / Screw Zach Const St Ti 14mm - [id number] Implanted:Qty: 4 on 05/07/2010 [place] [facility] [place]/A: Neck JNJ : DEPUY SPINE [id number] 14 / / Screw 3.5x14 Mntr Fa [id number] - [id number] Implanted:Qty: 8 on 05/07/2010 [place] [facility] [place] N/A: Spine Cervical JNJ : ETHICON CARDIOVATIONS [id number] / / Jarrell 3.5m769es [id number] - [id number] Implanted:Qty: 1 on 05/07/2010 [place] [facility] [place] N/A: Spine Cervical JNJ : ETHICON CARDIOVATIONS [id number] / / Screw Inner Mntr [id number] - [id number] Implanted:Qty: 8 on 05/07/2010 [place] [facility] [place] N/A: Spine Cervical JNJ : ETHICON CARDIOVATIONS [id number] / / Envista Intraocular Lens Implanted:Qty: 1 on 03/10/2022 by Liang Marshall MD at OR [facility] Right: Eye BAUSCH & LOMB 08/13/2023 [id number] / [id number] / [id number] Envista Intraocular Lens Implanted:Qty: 1 on 03/24/2022 by Liang Marshall MD at OR [facility] Left: Eye BAUSCH & LOMB 07/13/2024 [id number] / [id number] / [id number] documented as of this encounter Advance Directives Documents on File Type Date Recorded Patient Prompt Care Rn Expl anation POLST 01/26/2021 [place] [facility] FOR LIFE-SUSTAINING TREATMENT [...] Power of Attor andrew? No Care Teams Braiding Machine Operator Relationship Specialty Start Date End Date Jocelyne Desai DO [address] [place] [address] [place] [address] PCP - General Internal Medicine 11/09/16 documented as of this encounter
--- OUTSIDE RECORDS SUMMARY | 2024-01-29 17:44 | External Medical Summary ---
Author Name Unknown Address Unknown Organization [facility] [place] [address] Laboratory Report Ordering Provider Test Date Status ENMANUEL REARDON 01/15/2024 13:30:56 Final Observation Date Value Abnormality Reference (Units ) Status SYNC LEUKOCYTES IN BLOOD BY AUTOMATED COUNT 01/15/2024 13:30:56 4.96 4.00-10.80 (K/uL) Final Segs 01/15/2024 13:30:56 61.5 40.0-75.0 (%) Final Lymphs % 01/15/2024 13:30:56 26.2 18.0-42.0 (%) Final Monos 01/15/2024 13:30:56 8.7 1.0-11.0 (%) Final Eosinophils 01/15/2024 13:30:56 3.2 0.0-6.0 (%) Final Basos 01/15/2024 13:30:56 0.4 0.0-2.0 (%) Final Absolute Segs 01/15/2024 13:30:56 3.05 1.80-7.70 (K/uL) Final Lymphs, absolute 01/15/2024 13:30:56 1.30 1.00-4.80 (K/ul) Final Monos, Abs 01/15/2024 13:30:56 0.43 0.00-1.10 (K/uL) Final Eos, Abs 01/15/2024 13:30:56 0.16 0.00-0.70 (K/uL) Final Basos, Abs 01/15/2024 13:30:56 0.02 0.00-0.20 (K/uL) Final Performing Location [facility] [place] [address]
--- OUTSIDE RECORDS SUMMARY | 2024-01-29 17:44 | External Medical Summary | Summary of Care ---
Author Name Unknown Organization [facility] Address [address] [facility] [place] [address] Phone [phone] Care Team Providers Care Systems Programmer Name Role Phone Jocelyne Desai Primary Care Provider [phone] Encounter Details Date Type Department Care Team (Late st Contact Info) Description 01/15/2024 Orders Only Hematology/Oncology Treatment, [place] [address] [place] [address] Monse Coates MD 400 [place] [address] Allergies No known active allergiesdocumented as [...] chronic, stage IV (GFR 15-29 ml/min) ([facility]) Take 1 Tablet by mouth in the morning. 4 Active Calcitriol 0.5 MCG Oral Capsule (Rocaltrol)Indic ations:Kidney disease, chronic, stage IV (GFR 15-29 ml/min) ([facility]),Hypocalcem ia Take 1 Capsule by mouth in the morning. 30 Capsule 5 Active documented as of this encounter (statuses as of 01/15/2024) Active Problems Patient Care Coordination No te Formatting of this note migh t be different from the original. Good connectivity [facility] for wound care [phone] Televideo if needed. Problem Noted Date Diagnosed [...] rule out osteomyelitis--[facility] will go to [facility] for [facility]. 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 MCFP current use of 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 [...] ICD-10 update of inactive term PLATT RESEARCH OTHER*[id number] 02/20/2007 SPINAL STENOSIS-LUMBAR 09/23/2002 Vitamin D deficiency [...] 11/17/19 23 LUMBAGO 12/24/2002 05/09/2007 LOC PRIM [id number] 12/24/200208/13 DEGENERATIVE SKIN DISORD 12/24/2002 VERTEBRAL FX [...] No 10/31/2023 Does the household have a [facility] source of income? 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 Not on file Not on file documented as of this encounter Plan of Treatment Upcoming Encounters Date Type Department Care Team (Late st Contact Info) Description 01/16/2024 6:30 AM EST Anticoagulation Centralized Clinical Pharmacy Services, Ilya Lafleur [address] [place] [address] [place] [address] [place] [address] 01/19/2024 9:00 AM EST Office Visit Gastroenterology [address] [place] [address] Moon Avila CRNP [address] [place] [address] 01/29/2024 1:30 PM EST Laboratory Laboratory Scenery [place] [address] [place] [address] Kayley, Lab Scenery [address] [place] [address] 01/29/2024 2:00 PM EST Immunization/Injection Hematology/Oncology Treatment, [place] [address] [place] [address] Kayley, Chair 7 Hem Onc [address] [place] [address] 02/20/2024 12:30 PM EST Nurse Only Ancillary [address] [place] [address] [place], Nurse Annual [address] [place] [address] 03/08/2024 2:30 PM EST Office Visit Family Medicine [address] [place] [phone] [address] [place] [address] 04/16/2024 3:00 PM EST Office Visit Nephrology [address] [place] [address] Jennifer Agustin MD [address] [place] [address] Scheduled Procedures Name Priority Associated Diagnoses Date/Ti [...] this encounter Medical Devices Implanted Type Area Coffin Maker Device Identifier Shelf Expiration Date Model / Serial / Lot Shaft Fibula 6cm [id number] - [id number] Implanted:Qty: 1 on 09/05/[address] [facility] [place] Tissue - Human N/A: Spine Cervical MUSCULOSKELETAL TRANSPLANT FND 04/20/2010 [id number] / [id number] 0P / Stent Eso Gw 22x70 [id number] - [id number] Implanted:Qty: 1 on 01/21/[address] [facility] [place] N/A: Esophagus ALVEOLUS INC 04/12/2009 55318-830 / / [id number] Depuy Uniplate 32 Implanted:Qty: 1 on 09/05/2008 [...] Plate Zach 3 Level Ti 54mm - [id number] Implanted:Qty: 1 on 05/07/[address] [facility] [place] N/A: Neck JNJ : DEPUY SPINE [id number] / / Screw Zach Const St Ti 14mm - [id number] Implanted:Qty: 4 on 05/07/[address] [facility] [place] N/A: Neck JNJ : DEPUY SPINE [id number] 14 / / Screw 3.5x14 Mntr Fa [id number] - [id number] Implanted:Qty: 8 on 05/07/[address] [facility] [place] N/A: Spine Cervical JNJ : ETHICON CARDIOVATIONS [id number] / / Jarrell [id number] - [id number] Implanted:Qty: 1 on 05/07/[address] [facility] [place] N/A: Spine Cervical JNJ : ETHICON CARDIOVATIONS [id number] / / Screw Inner Mntr [id number] - [id number] Implanted:Qty: 8 on 05/07/[address] [facility] [place] N/A: Spine Cervical JNJ : ETHICON CARDIOVATIONS [id number] / / Envista Intraocular Lens Implanted:Qty: 1 on 03/10/2022 by Liang Marshall MD at [facility] Right: Eye BAUSCH & LOMB 08/13/2023 [id number] / [id number] / [id number] Envista Intraocular Lens Implanted:Qty: 1 on 03/24/2022 by Liang Marshall MD at [facility] Left: Eye BAUSCH & LOMB 07/13/2024 [id number] / [id number] / [id number] documented as of this encounter Advance Directives Documents on File Type Date Recorded Patient Global Program Director Expl anation POLST 01/26/2021 [place] [facility] [...] Power of Attor andrew? No Care Teams Systems Programmer Relationship Specialty Start Date End Date Jocelyne Desai DO [address] [place] [address] [place] [phone] PCP - General Internal Medicine 11/09/16 documented as of this encounter
--- OUTSIDE RECORDS SUMMARY | 2024-01-29 17:44 | External Medical Summary ---
Author Name Unknown Address Unknown Organization [facility] [place] [address] Laboratory Report Ordering Provider Test Date Status DONNELL PRIETO 01/15/2024 13:30:56 Final Please draw PT/INR every 1-4 weeks or as requested by the [facility]

Warfarin Therapy
INR: 2.0-3.0 conventional anticoagulation
INR: 2.5-3.5 high intensity anticoagulation Observation Date Value Abnormality Reference (Units ) Status PT 01/15/2024 13:30:56 26.8 Above high normal 11 .6-15.2 (seconds) Final INR 01/15/2024 13:30:56 2.4 Above high normal 0. 8-1.2 Final Performing Location [facility] [place] [address]
--- OUTSIDE RECORDS SUMMARY | 2024-01-29 17:45 | External Medical Summary | Summary of Care ---
Author Name Unknown Organization [facility] Address [address] [facility] [place] [address] Phone [phone] Care Team Providers Care Airfield Services Officer Name Role Phone Jocelyne Desai DO Primary Care Provider + [phone] Encounter Details Date Type Department Care Team (Late st Contact Info) Description 01/10/2024 Population Health External Data Unspecified Department Allergies [...] chronic, stage IV (GFR 15-29 ml/min) ([facility]) Take 1 Tablet by mouth in the morning. 4 Active Calcitriol 0.5 MCG Oral Capsule (Rocaltrol)Indic ations:Kidney disease, chronic, stage IV (GFR 15-29 ml/min) ([facility]),Hypocalcem ia Take 1 Capsule by mouth in the morning. 30 Capsule 5 4 Active documented as of this encounter (statuses as of 01/10/2024) Active Problems Patient Care Coordination No te Formatting of this note migh t be different from the original. Good connectivity [facility] for wound care [phone] Televideo if needed. Problem Noted Date Diagnosed [...] podiatry,. Letter in chart from [facility] podiatry they were unable to get in touch with him. Given phone number to call and make appt. He stated he is willing to do this. Assessment & Plan (07/13/2021 12:15 PM EDT): Toe ulcer present>1 month. Needs xray to rule out osteomyelitis--he will go to [facility] for xray. 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 Not on file Not on file Not on file documented as of this encounter Plan of Treatment Upcoming Encounters Date Type Department Care Team (Late st Contact Info) Description 01/15/2024 1:10 PM EST Laboratory Laboratory Cely Zaldiv[place] [address] [address] [phone] [place] [address] 01/15/2024 1:30 PM EST Office Visit Hematology/Oncology Cely Zalid[place] [phone] Monse Coates MD [address] [place] [address] [place] [address] 01/15/2024 2:00 PM EST Immunization/Injecti on Hematology/Oncology Treatment, [place] [facility] [phone] Park, Chair 7 Hem Onc [facility] [place] [address] 01/19/2024 9:00 AM EST Office Visit Gastroenterology [address] [place] [address] Moon Avila CRNP [address] [place] [address] 02/20/2024 12:30 PM EST Nurse Only Ancillary [address] [place] [address] [place], Nurse [address] [place] [address] 03/08/2024 2:30 PM EST Office Visit Family Medicine [address] [place] [phone] [address] [place] [address] 04/16/2024 3:00 PM EST Office Visit Nephrology [address] [place] [address] Jennifer Agustin MD 200 [facility] [place] [address] Scheduled Procedures Name Priority Associated Diagnoses Date/Ti [...] this encounter Medical Devices Implanted Type Area Multiple Needle Stitcher Device Identifier Shelf Expiration Date Model / Serial / Lot Shaft Fibula 6cm [id number] - [id number] Implanted:Qty: 1 on 09/05/2008 [place] [facility] [place] - Human N/A: Spine Cervical MUSCULOSKELETAL TRANSPLANT FND 04/20/2010 [id number] / [id number] 0P / Stent Eso Gw 22x70 [id number] - [id number] Implanted:Qty: 1 on 01/21/2008 at [place] [facility] N/A: Esophagus [employer] 04/12/2009 10113-679 / / [id number] Depuy Uniplate 32 Implanted:Qty: 1 on 09/05/2008 [...] [facility] N/A: Neck [id number] / [id number] / Plate Zach 3 Level Ti 54mm - [id number] Implanted:Qty: 1 on 05/07/2010 at [place] [facility] N/A: Neck JNJ : DEPUY SPINE [id number] / / Screw Zach Const St Ti 14mm - [id number] Implanted:Qty: 4 on 05/07/2010 at [place] [facility] N/A: Neck JNJ : DEPUY SPINE [id number] / / Screw 3.5x14 Mntr Fa [id number] - [id number] Implanted:Qty: 8 on 05/07/2010 at [place] [facility] N/A: Spine Cervical JNJ : ETHICON CARDIOVATIONS [id number] / / Jarrell [id number] - [id number] Implanted:Qty: 1 on 05/07/2010 at [place] [facility] N/A: Spine Cervical JNJ : ETHICON CARDIOVATIONS [id number] / / Screw Inner Mntr [id number] - [id number] Implanted:Qty: 8 on 05/07/2010 at [place] [facility] N/A: Spine Cervical JNJ : ETHICON CARDIOVATIONS [id number] / / Envista Intraocular Lens Implanted:Qty: 1 on 03/10/2022 by Liang Marshall MD at OR [facility] Right: Eye BAUSCH & LOMB 08/13/2023 [id number] / [id number] / [id number] Envista Intraocular Lens Implanted:Qty: 1 on 03/24/2022 by Liang Marshall MD at OR [facility] Left: Eye BAUSCH & LOMB 07/13/2024 [id number] / [id number] / [id number] documented as of this encounter Advance Directives Documents on File Type Date Recorded Patient Afternoon Nanny Torres ARREOLA 01/26/2021 [facility] * No Code [...] Power of Attor andrew? No Care Teams Airfield Services Officer Relationship Specialty Start Date End Date Jocelyne Desai DO [address] [place] [address] [place] [address] PCP - General Internal Medicine 11/09/16 documented as of this encounter
--- OUTSIDE RECORDS SUMMARY | 2024-01-29 17:45 | External Medical Summary | Summary of Care ---
Author Name Unknown Organization [facility] Address [address] [facility] [place] [address] Phone [phone] Care Team Providers Care Drop Board Worker Name Role Phone Jocelyne Desai DO Primary Care Provider + [phone] Encounter Details Date Type Department Care Team (Late st Contact Info) Description 01/08/2024 Population Health External Data Unspecified Department Allergies No known active allergiesdocumented as of this encounter (statuses as of 01/08/2024) Medications ACETAMINOPHEN 500 MG PO TABS 2 [...] disease, chronic, stage IV (GFR 15-29 ml/min) ([facility]) Take 1 Tablet by mouth in the morning and 1 Tablet before bedtime. 120 Tablet 3 4 Active documented as of this encounter (statuses as of 01/08/2024) Active Problems Patient Care Coordination No te Formatting of this note migh t be different from the original. Good connectivity [facility] for wound care [phone] Televideo if needed. Problem Noted Date Diagnosed [...] up with podiatry,. Letter in chart from [facility] podiatry they were unable to get in touch with him. Given phone number to call and make appt. He stated he is willing to do this. Assessment & Plan (07/13/2021 12:15 PM EDT): Toe ulcer present>1 month. Needs xray to rule out osteomyelitis--he will go to [facility] for xray. 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 [...] ICD-10 update of inactive term PLATT RESEARCH OTHER*[id number] 02/20/2007 SPINAL STENOSIS-LUMBAR 09/23/2002 Vitamin D deficiency Cervical spinal stenosis documented as of this encounter (statuses as of 01/08/2024) Resolved Problems Problem Noted Date Diagnosed Date [...] 11/17/19 23 LUMBAGO 12/24/2002 05/09/2007 LOC PRIM [id number] 12/24/200208/13 DEGENERATIVE SKIN DISORD 12/24/2002 VERTEBRAL FX [...] as of this encounter (statuses as of 01/08/2024) Immunizations Name Administration Dates Next Due COVID-19 mRNA, LNP-s, No Pre serve, 2-Dose Series (Moderna) 03/19/2020 COVID-19 mRNA, LNP-s, No Pre serve, 2-Dose Series (Pfizer) 02/16/2021,04/09/2020,03/19/2020 COVID-19, MRNA-LNP, PF, 30 M CG/0.3 mL, 12 YRS AND ABOVE, IM (MVP 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 Not on file Not on file documented as of this encounter Plan of Treatment Upcoming Encounters Date Type Department Care Team (Late st Contact Info) Description 01/10/2024 6:30 AM EST Anticoagulation Centralized Clinical Pharmacy Services, Ilya Lafleur [address] [place] [address] [place] [address] [place] [address] 01/15/2024 1:10 PM EST Laboratory Laboratory [facility] Gallo Mejia [address] [place] [phone] [place], Lab [facility] [address] [address] 01/15/2024 1:30 PM EST Office Visit Hematology/Oncology [facility] Gallo Mejia [address] [place] [phone] Monse Coates MD [address] [place] [address] [place] [address] 01/15/2024 2:00 PM EST Immunization/Injection Hematology/Oncology Treatment, [place] [address] [facility] [address] [place] [phone] Park, Chair 7 Hem Onc [facility] 200 [facility] [place] [address] 01/19/2024 9:00 AM EST Office Visit Gastroenterology [address] [place] [address] Moon Avila CRNP [address] [place] [address] 02/20/2024 12:30 PM EST Nurse Only Ancillary [address] [place] [address] [place], Nurse [address] [place] [address] 03/08/2024 2:30 PM EST Office Visit Family Medicine [address] [place] [phone] [address] [place] [address] 04/16/2024 3:00 PM EST Office Visit Nephrology [address] [place] [address] Jennifer Agustin MD [address] [place] [address] Scheduled Procedures Name Priority Associated Diagnoses Date/Ti [...] this encounter Medical Devices Implanted Type Area Mold Shop Supervisor Device Identifier Shelf Expiration Date Model / Serial / Lot Shaft Fibula 6cm [id number] - [id number] Implanted:Qty: 1 on 09/05/2008 [place] [facility] - Human N/A: Spine Cervical MUSCULOSKELETAL TRANSPLANT FND 04/20/2010 [id number] / [id number] 0P / Stent Eso Gw 22x70 [id number] - [id number] Implanted:Qty: 1 on 01/21/2008 at [place] [facility] N/A: Esophagus [employer]US INC 04/12/2009 32330-430 / / [id number] Depuy Uniplate 32 Implanted:Qty: 1 on 09/05/2008 [...] Plate Zach 3 Level Ti 54mm - [id number] Implanted:Qty: 1 on 05/07/2010 at [place] [facility] N/A: Neck JNJ : DEPUY SPINE [id number] / / Screw Zach Const St Ti 14mm - [id number] Implanted:Qty: 4 on 05/07/2010 at [place] [facility] N/A: Neck JNJ : DEPUY SPINE [id number] 14 / / Screw 3.5x14 Mntr Fa [id number] - [id number] Implanted:Qty: 8 on 05/07/2010 at [place] [facility] N/A: Spine Cervical JNJ : ETHICON CARDIOVATIONS [id number] / / Jarrell [id number] - [id number] Implanted:Qty: 1 on 05/07/2010 at [place] [facility] N/A: Spine Cervical JNJ : ETHICON CARDIOVATIONS [id number] / / Screw Inner Mntr [id number] - [id number] Implanted:Qty: 8 on 05/07/2010 at [place] [facility] N/A: Spine Cervical JNJ : ETHICON CARDIOVATIONS [id number] / / Envista Intraocular Lens Implanted:Qty: 1 on 03/10/2022 by Liang Marshall MD at OR [facility] Right: Eye BAUSCH & LOMB 08/13/2023 [id number] / [id number] / [id number] Envista Intraocular Lens Implanted:Qty: 1 on 03/24/2022 by Liang Marshall MD at OR [facility] Left: Eye BAUSCH & LOMB 07/13/2024 [id number] / [id number] / [id number] documented as of this encounter Advance Directives Documents on File Type Date Recorded Patient Peanut Butter Maker Expl anation POLST 01/26/2021 [place] OR [facility] [...] of Attor andrew? No Care Teams Drop Board Worker Relationship Specialty Start Date End Date Jocelyne Desai DO [address] [place] [address] [place] [address] PCP - General Internal Medicine 11/09/16 documented as of this encounter
--- OUTSIDE RECORDS SUMMARY | 2024-01-29 17:45 | External Medical Summary | Summary of Care ---
Author Name Unknown Organization [facility] Address [address] [facility] [place] [address] Phone [phone] Care Team Providers Care Boring Machine Feeder Name Role Phone Jocelyne Desai Primary Care Provider Reason for Visit * Reason Onset Date Comments Test Results 01/09/2024 Encounter Details Date Type Department Care Team (Late st Contact Info) Description 01/09/2024 Telephone NephrologyCely [address] [place] [address] Jennifer Agustin MD 200 [facility] [place] [address] Test Results Allergies No known active allergiesdocumented as of this encounter (statuses as of 01/09/2024) Medications ACETAMINOPHEN 500 MG PO TABS 2 [...] 100 Tablet 2 4 1:31 PM EDT 06/11/20 24 Active Cyclobenzaprine HCl 10 MG Oral Tablet (Flexeril) Take 1 Tablet by mouth every 8 hours as needed for Muscle spasms. 270 Tablet 4 4:22 PM EDT 07/25/19 Active Metoprolol Succinate ER 25 MG Oral [...] in the morning. with food.. 08/23/19 Active Vitron-C 65-125 MG Oral Tablet (Iron-Vitamin [...] in the evening. 360 Tablet 3 11/30/19 Active Additional Information Patient taking differently:40 mg Oral BID (0900, 1600),12/27/23- Pt to take 80mg BID x3 days. Then decrease to 60mg BID, Reported on 12/27/2023 Potassium Chloride Candi ER 20 MEQ Oral Tablet Extended ReleaseIndicati ons:Kidney disease, chronic, stage IV (GFR 15-29 ml/min) ([facility]) Take 1 Tablet by mouth in the morning. 01/09/20 Active Calcitriol 0.5 MCG Oral Capsule (Rocaltrol)Yaquelin cations:Kidney disease, chronic, stage IV (GFR 15-29 ml/min) ([facility]),Hypocalce kirt Take 1 Capsule by mouth in the morning. 30 Capsule 5 01/09/20 Active Potassium Chloride Candi ER 20 MEQ Oral Tablet Extended ReleaseIndicati ons:Kidney disease, chronic, stage IV (GFR 15-29 ml/min) ([facility]) Take 1 Tablet by mouth in the morning and 1 Tablet before bedtime. 120 Tablet 3 11/30/19 24 024 Discontinued documented as of this encounter (statuses as of 01/09/2024) Active Problems Patient Care Coordination No te Formatting of this note migh t be different from the original. Good connectivity [facility] for wound care [phone] Televideo if needed. Problem Noted Date Diagnosed [...] ICD-10 update of inactive term PLATT RESEARCH OTHER*[id number] 02/20/2007 SPINAL STENOSIS-LUMBAR 09/23/2002 Vitamin D deficiency Cervical spinal stenosis documented as of this encounter (statuses as of 01/09/2024) Resolved Problems Problem Noted Date Diagnosed Date [...] [place] office early next week will need [facility] provider recheck Multiple and open wound [...] 02/27/2003 11/17/19 LUMBAGO 12/24/2002 05/09/2007 LOC PRIM [id number] 12/24/200208/13 DEGENERATIVE SKIN DISORD 12/24/2002 VERTEBRAL FX [...] as of this encounter (statuses as of 01/09/2024) Immunizations Name Administration Dates Next Due COVID-19 [...] 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 RX pended for signature. * Telephone Encounter - Libby Hurd RN - 01/09/2024 4:10 PM EST ----- Message from Jennifer Agustin [...] Centralized Clinical Pharmacy Services, Ilya Lafleur [address] [place] [address] [place] [address] [facility], [address] [place] [address] 01/15/2024 1:10 PM EST Laboratory Laboratory [facility] [place] 200 [facility] [place] [phone] [place], Lab [place] [address] [place] [address] 01/15/2024 1:30 PM EST Office Visit Hematology/Oncology [facility] [place] 200 [facility] [place] [phone] Monse Coates MD [address] [place] [address] [place] [address] 01/15/2024 2:00 PM EST Immunization/Injection Hematology/Oncology Treatment, [place] [address] [place] [phone] Kayley, Chair 7 Hem Onc [facility] [address] [place] [address] 01/19/2024 9:00 AM EST Office Visit Gastroenterology [address] [place] [address] Moon Avila CRNP [address] [place] [address] 02/20/2024 12:30 PM EST Nurse Only Ancillary [address] [place] [address] [place], Nurse [address] [place] [address] 03/08/2024 2:30 PM EST Office Visit Family Medicine [address] [place] [phone] [address] [place] [address] 04/16/2024 3:00 PM EST Office Visit Nephrology [address] [place] [address] Jennifer Agustin MD [address] [place] [address] Scheduled Orders Name Type Priority Associated Diagnoses Orde r Schedule BASIC METABOLIC PANEL Lab Routine Kidney disease, chronic, stage IV (GFR 15-29 ml/min) ([facility]) Expected: 01/16/2024 (Approximate), Expires: 01/08/2025 ALBUMIN Lab Routine Kidney disease, chronic, stage IV (GFR 15-29 ml/min) ([facility]) Expected: 01/16/2024 (Approximate), Expires: 01/08/2025 PHOSPHORUS Lab Routine Kidney disease, chronic, stage IV (GFR 15-29 ml/min) ([facility]) Expected: 01/16/2024 (Approximate), Expires: 01/08/2025 Scheduled Procedures Name Priority Associated Diagnoses Date/Ti [...] encounter Medical Devices Implanted Type Area Supervisor Sulfuric Acid Plant Device Identifier Shelf Expiration Date Model / Serial / Lot Shaft Fibula 6cm [id number] - [id number] Implanted:Qty: 1 on 09/05/2008 at [place] [facility] Tissue - Human N/A: Spine Cervical MUSCULOSKELETAL TRANSPLANT FND 04/20/2010 [id number] / [id number] / Stent Eso Gw 22x70 [id number] - [id number] Implanted:Qty: 1 on 01/21/2008 at OR [facility] N/A: Esophagus ALVEOLUS INC 04/12/2009 [id number] / / [id number] Depuy Uniplate 32 Implanted:Qty: 1 on 09/05/2008 [...] Plate Zach 3 Level Ti 54mm - [id number] Implanted:Qty: 1 on 05/07/2010 at OR [facility] N/A: Neck JNJ : DEPUY SPINE [id number] / / Screw Zach Const St Ti 14mm - [id number] Implanted:Qty: 4 on 05/07/2010 at OR [facility] N/A: Neck JNJ : DEPUY SPINE [id number] / / Screw 3.5x14 Mntr Fa [id number] - [id number] Implanted:Qty: 8 on 05/07/2010 at OR [facility] N/A: Spine Cervical JNJ : ETHICON CARDIOVATIONS [id number] / / Jarrell [id number] - [id number] Implanted:Qty: 1 on 05/07/2010 at OR [facility] N/A: Spine Cervical JNJ : ETHICON CARDIOVATIONS [id number] / / Screw Inner Mntr [id number] - [id number] Implanted:Qty: 8 on 05/07/2010 at OR [facility] N/A: Spine Cervical JNJ : ETHICON CARDIOVATIONS [id number] / / Envista Intraocular Lens Implanted:Qty: 1 on 03/10/2022 by Liang Marshall MD at OR [facility] Right: Eye BAUSCH & LOMB 08/13/2023 [id number] / [id number] / [id number] Envista Intraocular Lens Implanted:Qty: 1 on 03/24/2022 by Liang Marshall MD at OR [facility] Left: Eye BAUSCH & LOMB 07/13/2024 [id number] / [id number] / [id number] documented as of this encounter Visit Diagnoses Diagnosis Right great toe amputee (HCC)- Primary Diabetic ulcer of toe of right foot associated with type 2 diabetes mellitus, limited to breakdown of skin ([facility]) Cellulitis of right leg Cellulitis and abscess of leg, except foot Type 2 diabetes, controlled, with peripheral neuropathy ([facility]) Type II or unspecified type diabetes mellitus with neurological manifestations, not stated as uncontrolled Status post amputation of lesser toe of right foot ([facility]) Type 2 diabetes mellitus with stage 3b chronic kidney disease, with long-term current use of insulin ([facility]) Venous insufficiency of both lower extremities Multiple open wounds of left lower leg Type 2 diabetes mellitus with peripheral vascular disease (HCC) Diabetic ulcer of toe of right foot associated with type 2 diabetes mellitus, limited to breakdown of skin (HCC)- Primary Hypocalcemia- Primary Kidney disease, chronic, stage IV (GFR 15-29 ml/min) (HCC) Chronic kidney disease, Stage IV (severe) documented in this encounter Advance Directives Documents on File Type Date Recorded Patient Starch Dumper Expl srinivas ARREOLA 01/26/2021 [place] OR [facility]MENT [...] Power of Attor andrew? No Care Teams Boring Machine Feeder Relationship Specialty Start Date End Date Jocelyne Desai DO [address] [place] [address] [place] [address] PCP - General Internal Medicine 11/09/16 documented as of this encounter
--- OUTSIDE RECORDS SUMMARY | 2024-01-29 17:46 | External Medical Summary | Summary of Care ---
Author Name Unknown Organization [facility] Address [address] [facility] [place] [address] Phone [phone] Care Team Providers Care Head Chopper Name Role Phone Jocelyne Desai DO Primary Care Provider + [phone] Encounter Details Date Type Department Care Team (Late st Contact Info) Description 01/02/2024 Population Health External Data Unspecified Department Allergies No known active allergiesdocumented as of this encounter (statuses as of 01/02/2024) Medications ACETAMINOPHEN 500 MG PO TABS 2 [...] IV (GFR 15-29 ml/min) ([facility]) Take 1 Tablet by mouth in the morning and 1 Tablet before bedtime. 120 Tablet 3 4 Active documented as of this encounter (statuses as of 01/02/2024) Active Problems Patient Care Coordination No te Formatting of this note migh t be different from the original. Good connectivity [facility] for wound care [phone] Televideo if needed. Problem Noted Date Diagnosed [...] podiatry,. Letter in chart from [facility] podiatry they were unable to get in touch with him. Given phone number to call and make appt. He stated he is willing to do this. Assessment & Plan (07/13/2021 12:15 PM EDT): Toe ulcer present>1 month. Needs xray to rule out osteomyelitis--he will go to [facility] for xray. Non-pressure chronic ulcer o f [...] ICD-10 update of inactive term PLATT RESEARCH OTHER*[id number] 02/20/2007 SPINAL STENOSIS-LUMBAR 09/23/2002 Vitamin D deficiency Cervical spinal stenosis documented as of this encounter (statuses as of 01/02/2024) Resolved Problems Problem Noted Date Diagnosed Date [...] [place] office early next week will need [facility] provider recheck Multiple and open wound [...] 11/17/19 23 LUMBAGO 12/24/2002 05/09/2007 LOC PRIM [id number] 12/24/200208/13 DEGENERATIVE SKIN DISORD 12/24/2002 VERTEBRAL FX [...] as of this encounter (statuses as of 01/02/2024) Immunizations Name Administration Dates Next Due COVID-19 mRNA, LNP-s, No Pre serve, 2-Dose Series (Moderna) 03/19/2020 COVID-19 mRNA, LNP-s, No Pre serve, 2-Dose Series (Pfizer) 02/16/2021,04/09/2020,03/19/2020 COVID-19, MRNA-LNP, PF, 30 M CG/0.3 mL, 12 YRS AND ABOVE, IM ([facility]) 11/16/2022 Covid-19, Mrna, Lnp-s, [...] 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 Not on file Not on file Not on file Not on file 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 Not on file Not on file documented as of this encounter Plan of Treatment Upcoming Encounters Date Type Department Care Team (Late st Contact Info) Description 01/10/2024 6:30 AM EST Anticoagulation Centralized Clinical Pharmacy Services, Ilya Lafleur [address] [place] [address] [place] [address] [place] [address] 01/15/2024 1:10 PM EST Laboratory [facility] Gallo Mejia [address] [place] [phone] [place], Lab [facility] [address] [place] [address] 01/15/2024 1:30 PM EST Office Visit Hematology/Oncology [facility] Gallo Mejia [address] [place] [phone] Monse Coates MD [address] [place] [address] [place] [address] 01/15/2024 2:00 PM EST Immunization/Injection Hematology/Oncology Treatment, [place] [address] [facility] [address] [place] [phone] [place], Chair 7 Hem Onc [facility] [address] [facility] [place] [address] 01/19/2024 9:00 AM EST Office Visit Gastroenterology [address] [place] [address] Moon Avila CRNP [address] [place] [address] 02/20/2024 12:30 PM EST Nurse Only Ancillary [address] [place] [address] Marleeey, Nurse [address] [place] [address] 03/08/2024 2:30 PM EST Office Visit Family Medicine [address] [place] [phone] [address] [place] [address] 04/16/2024 3:00 PM EST Office Visit Nephrology [address] [place] [address] Jennifer Agustin MD [address] [place] [address] Scheduled Procedures Name Priority Associated Diagnoses Date/Ti [...] 08/23/2023, 05/2022, 11/09/2022, Additional history exists GFR 06/03/2024 12/04/2023, 11/13, 11/20/2023, Additional history exists Depression Screening 10/30/2024 10/31/2023 [...] this encounter Medical Devices Implanted Type Area Dough Brake Machine Operator Device Identifier Shelf Expiration Date Model / Serial / Lot Shaft Fibula 6cm [id number] - [id number] Implanted:Qty: 1 on 09/05/2008 at [place] [facility] [place] Tissue - Human N/A: Spine Cervical MUSCULOSKELETAL TRANSPLANT FND 04/20/2010 [id number] / [id number] 0P / Stent Eso Gw 22x70 [id number] - [id number] Implanted:Qty: 1 on 01/21/2008 at OR [facility] N/A: Esophagus [employer] 04/12/2009 [id number] / / [id number] Depuy Uniplate 32 Implanted:Qty: 1 on 09/05/2008 [...] Plate Zach 3 Level Ti 54mm - [id number] Implanted:Qty: 1 on 05/07/2010 at OR [facility] N/A: Neck JNJ : DEPUY SPINE [id number] / / Screw Zach Const St Ti 14mm - [id number] Implanted:Qty: 4 on 05/07/2010 at OR [facility] N/A: Neck JNJ : DEPUY SPINE [id number] / / Screw 3.5x14 Mntr Fa [id number] - [id number] Implanted:Qty: 8 on 05/07/2010 at OR [facility] N/A: Spine Cervical JNJ : ETHICON CARDIOVATIONS [id number] / / Jarrell [id number] - [id number] Implanted:Qty: 1 on 05/07/2010 at OR [facility] [place] N/A: Spine Cervical JNJ : ETHICON CARDIOVATIONS [id number] / / Screw Inner Mntr [id number] - [id number] Implanted:Qty: 8 on 05/07/2010 at OR [facility] [place] N/A: Spine Cervical JNJ : ETHICON CARDIOVATIONS [id number] / / Envista Intraocular Lens Implanted:Qty: 1 on 03/10/2022 by Liang Marshall MD at OR [facility] Right: Eye BAUSCH & LOMB 08/13/2023 [id number] / [id number] / [id number] Envista Intraocular Lens Implanted:Qty: 1 on 03/24/2022 by Liang Marshall MD at OR [facility] Left: Eye BAUSCH & LOMB 07/13/2024 [id number] / [id number] / [id number] documented as of this encounter Advance Directives Documents on File Type Date Recorded Patient Application Development Team Lead Expl anation POLST 01/26/2021 [place] OR [facility]-SU[facility]AIN[facility] TREATMENT * No [...] Power of Attor andrew? No Care Teams Head Chopper Relationship Specialty Start Date End Date Jocelyne Desai DO [address] [place] [address] [place] [address] PCP - General Internal Medicine 11/09/16 documented as of this encounter
--- OUTSIDE RECORDS SUMMARY | 2024-01-29 17:46 | External Medical Summary ---
Author Name Unknown Address Unknown Organization K01:LAB[facility]ATORY [facility] [address] [facility] [address] Laboratory Report Ordering Provider Test Date Status ENMANUEL REARDON 01/04/2024 13:42:39 Final Observation Date Value Abnormality Reference (Units ) Status SYNC LEUKOCYTES IN BLOOD BY AUTOMATED COUNT 01/04/2024 13:42:39 3.77 Below low normal 4.00-10.80 (K/uL) Final Segs 01/04/2024 13:42:39 58.6 40.0-75.0 (%) Final Lymphs % 01/04/2024 13:42:39 24.7 18.0-42.0 (%) Final Monos 01/04/2024 13:42:39 10.6 1.0-11.0 (%) Final Eosinophils 01/04/2024 13:42:39 5.3 0.0-6.0 (%) Final Basos 01/04/2024 13:42:39 0.3 0.0-2.0 (%) Final Immature Granulocyte, Percent 01/04/2024 13:42:39 0.5 0.0-2.0 (%) Final Absolute Segs 01/04/2024 13:42:39 2.21 1.80-7.70 (K/uL) Final Lymphs, absolute 01/04/2024 13:42:39 0.93 Below low normal 1.00-4.80 (K/ul) Final Monos, Abs 01/04/2024 13:42:39 0.40 0.00-1.10 (K/uL) Final Eos, Abs 01/04/2024 13:42:39 0.20 0.00-0.70 (K/uL) Final Basos, Abs 01/04/2024 13:42:39 0.01 0.00-0.20 (K/uL) Final Immature Granulocytes, Number 01/04/2024 13:42:39 0.02 0.00-0.20 (K/uL) Final Performing Location [facility] [place] [address]
--- OUTSIDE RECORDS SUMMARY | 2024-01-29 17:46 | External Medical Summary | Summary of Care ---
Author Name Unknown Organization [facility] Address [address] [facility] [address] Phone [phone] Care Team Providers Care Employment Consultant Name Role Phone DesaiJocelyne DO Primary Care Provider + [phone] Reason for Visit * Reason Comments Medication Administration Retacrit * Episode Based Medications (Routine) - Authorized Specialty Diagnoses / Procedures Referred By Contzahida t Referred To Contact Diagnoses 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) Iron deficiency anemia due to chronic blood loss Procedures TN INJ RETACRIT NON-ESRD USE Monse Coates MD [address] [facility] [place] [address] Phone: tel: fax: Hematology/Oncology Treatment, [address] [address] Phone: tel: fax: Referral ID Status Reason Start Date Expiration Date V isits Requested Visits Authorized [id number] Authorized 11/13/2023 11/12/2024 [id number] Encounter Details Date Type Department Care Team (Late st Contact Info) Description 11/27/2023 10:30 AM EDT Immunization/I njection Hematology/Oncology Treatment, [address] [phone] Kayley, Chair 7 Hem Onc [address] [place] [address] 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)*; Iron deficiency anemia due to chronic blood loss Allergies No known active allergiesdocumented as of this encounter (statuses as of 12/26/2023) Medications ACETAMINOPHEN 500 MG PO TABS 2 [...] 3 4 1:13 PM EDT 11/20/19 Active Doxycycline Hyclate 100 MG Oral Tablet Delayed Release Take 1 Tablet by mouth in the morning and 1 Tablet before bedtime. 024 Discontinued Torsemide 20 MG Oral Tablet (Demadex) Take 2 Tablets by mouth in the morning. 180 Tablet 1 11/20/19 24 024 Discontinued Potassium Chloride Candi ER 20 MEQ Oral Tablet Extended ReleaseIndicati ons:Kidney disease, chronic, stage IV (GFR 15-29 ml/min) ([facility]) Take one tablet by mouth TWICE daily Mon, Wed, Fri and one tablet ONCE daily other days of week 120 Tablet 1 11/23/19 24 024 Discontinued documented as of this encounter (statuses as of 12/26/2023) Active Problems Patient Care Coordination No te Formatting of this note migh t be different from the original. Good connectivity [facility] for wound care [phone] Televideo if needed. Problem Noted Date Diagnosed [...] out osteomyelitis--he will go to [facility] for xray. 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 [...] ICD-10 update of inactive term PLATT RESEARCH OTHER*[id number] 02/20/2007 SPINAL STENOSIS-LUMBAR 09/23/2002 Vitamin D deficiency Cervical spinal stenosis documented as of this encounter (statuses as of 12/26/2023) Resolved Problems Problem Noted Date Diagnosed Date [...] early next week will need [facility] provider recheck Multiple and open [...] 11/17/19 23 LUMBAGO 12/24/2002 05/09/2007 LOC PRIM [id number] 12/24/200208/13 DEGENERATIVE SKIN DISORD 12/24/2002 VERTEBRAL FX [...] as of this encounter (statuses as of 12/26/2023) Immunizations Name Administration Dates Next Due COVID-19 mRNA, LNP-s, No Pre serve, 2-Dose Series (Moderna) 03/19/2020 COVID-19 mRNA, LNP-s, No Pre serve, 2-Dose Series (Pfizer) 02/16/2021,04/09/2020,03/19/2020 COVID-19, MRNA-LNP, PF, 30 M CG/0.3 mL, 12 YRS AND ABOVE, IM ([facility]) 11/16/2022 Covid-19, Mrna, Lnp-s, Pf, B ivalent, [...] 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 Hgb 8.7. Administered in JACOBY. Pt tolerated well. BP WNL. To return in one week. Discharged in stable condition. documented in this encounter Plan of Treatment Upcoming Encounters Date Type Department Care Team (Late st Contact Info) Description 01/01/2024 10:30 AM EST Laboratory Laboratory [address] [place] [phone] Kayley, Lab [address] [facility] [place] [address] 01/01/2024 11:00 AM EST Immunization/Injection Hematology/Oncology Treatment, [place] [address] [facility] [place] [phone] Kayley, Chair 7 Hem Onc [address] [place] [address] 01/02/2024 6:30 AM EST Anticoagulation Centralized Clinical Pharmacy Services, Ilya Lafleur [address] [place] [address] [place] [address] [facility] [place] [address] 01/15/2024 1:10 PM EST Laboratory Laboratory [facility] [place] [address] [facility] [place] [phone] Kayley Lab Scenery [address] [facility] [place] [address] 01/15/2024 1:30 PM EST Office Visit Hematology/Oncology [facility] [address] [place] [phone] Monse Coates MD [address] [place] [address] [place] [address] 01/15/2024 2:00 PM EST Immunization/Injection Hematology/Oncology Treatment, [place] [address] [place] [address] Kayley, Chair 7 Hem Onc [address] [place] [address] 01/19/2024 9:00 AM EST Office Visit Gastroenterology [address] [place] [address] Moon Avila CRNP [address] [place] [address] 02/20/2024 12:30 PM EST Nurse Only Ancillary [address] [place] [address] [place], Nurse [address] [place] [address] 03/08/2024 2:30 PM EST Office Visit Family Medicine [address] [place] [phone] [address] [place] [address] 04/16/2024 3:00 PM EST Office Visit Nephrology [address] [place] [address] Jennifer Agustin MD [address] [place] [address] [place] [address] Scheduled Procedures Name Priority Associated Diagnoses Date/Ti [...] exists Depression Screening 10/30/2024 10/31/2023 Albumin/Creatinine Ratio 11/26/202411/26/ 024, 11/01/2023, 07/18/2023, Additional history exists DTap/Tdap [...] this encounter Medical Devices Implanted Type Area Binding Machine Operator Device Identifier Shelf Expiration Date Model / Serial / Lot Shaft Fibula 6cm [id number] - [id number] Implanted:Qty: 1 [place] 09/05/[place] [facility] [place] - Human N/A: Spine Cervical MUSCULOSKELETAL TRANSPLANT FND 04/20/2010 [id number] / [id number] / Stent Eso Gw 22x70 [id number] - [id number] Implanted:Qty: 1 on 01/21/2008 [place] [facility] N/A: Esophagus ALVEOLUS INC 04/12/2009 [id number] / / [id number] Depuy Uniplate 32 Implanted:Qty: 1 on 09/05/2008 [...] Plate Zach 3 Level Ti 54mm - [id number] Implanted:Qty: 1 on 05/07/2010 [place] [facility] N/A: Neck JNJ : DEPUY SPINE [id number] / / Screw Zach Const St Ti 14mm - [id number] Implanted:Qty: 4 on 05/07/2010 [place] [facility] N/A: Neck JNJ : DEPUY SPINE [id number] / / Screw 3.5x14 Mntr Fa [id number] - [id number] Implanted:Qty: 8 on 05/07/2010 [place] [facility] N/A: Spine Cervical JNJ : ETHICON CARDIOVATIONS [id number] / / Jarrell [id number] - [id number] Implanted:Qty: 1 on 05/07/2010 [place] [facility] N/A: Spine Cervical JNJ : ETHICON CARDIOVATIONS [id number] / / Screw Inner Mn [id number] - [id number] Implanted:Qty: 8 on 05/07/2010 [place] [facility] N/A: Spine Cervical JNJ : ETHICON CARDIOVATIONS [id number] / / Envista Intraocular Lens Implanted:Qty: 1 on 03/10/2022 by Liang Marshall MD at OR [facility] Right: Eye BAUSCH & LOMB 08/13/2023 [id number] / [id number] / [id number] Envista Intraocular Lens Implanted:Qty: 1 on 03/24/2022 by Liang Marshall MD at OR [facility] Left: Eye BAUSCH & LOMB 07/13/2024 [id number] / [id number] / [id number] documented as of this encounter Visit Diagnoses [...] Date Dose Rate Site Epoetin Sam-epbx (Retacrit) 75132 UNIT/ML inj 10,000 Units 10,000 Units, Subcutaneous, ONCE, On 11/27/23 at 1130, For 1 doseIndications: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),Iron deficiency anemia due to chronic blood loss Given 11/27/2023 10:32 AM EDT 10,000 Units Arm Right Upper documented in this encounter Advance Directives Documents on File Type Date Recorded Patient Rfid Technician Expl anation POLST 01/26/2021 [place] OR [facility]-SUSTAINING TREATMENT [...] Power of Attor andrew? No Care Teams Employment Consultant Relationship Specialty Start Date End Date Jocelyne Desai DO [address] [place] [address] [place] [address] PCP - General Internal Medicine 11/09/16 documented as of this encounter
--- OUTSIDE RECORDS SUMMARY | 2024-01-29 17:46 | External Medical Summary | Summary of Care ---
Author Name Unknown Organization [facility] Address [address] [facility] [address] Phone [phone] Care Team Providers Care Apartment Community Manager Name Role Phone Jocelyne Desai Primary Care Provider [phone] Reason for Visit * Reason Onset Date Comments Referral 11/01/2023 SP 10-Day Encounter Details Date Type Department Care Team (Late st Contact Info) Description 11/01/2023 New Patient Triage (EXPORT FREIGHT SPECIALIST USE ONLY) [facility]ematology/Oncology [facility] [phone] Monty Jay CRNP [address] [place] [address] Referral (SP 10-Day) Allergies No known active allergiesdocumented as of this encounter (statuses as of 01/04/2024) Medications ACETAMINOPHEN 500 MG PO TABS 2 [...] Tablet Chewable Take by mouth. Activ e Midodrine HCl 2.5 MG Oral Tablet (Proamatine) Take 1 Tablet by mouth in the morning and 1 Tablet at noon and 1 Tablet in the evening. 90 Tablet 2 4 6:22 PM EDT 07/25/19 24 Discontinued Doxycycline Hyclate 100 MG Oral Tablet Delayed Release Take 1 Tablet by mouth in the morning and 1 Tablet before bedtime. Discontinued Torsemide 20 MG Oral Tablet (Demadex) Take 1 Tablet by mouth in the morning. 100 Tablet 1 4 6:26 AM EDT 11/01/19 24 024 Discontinued Potassium Chloride Candi ER 20 MEQ Oral Tablet Extended Release Take 1 Tablet by mouth in the morning. 100 Tablet 1 4 6:26 AM EDT 11/01/19 24 024 Discontinued documented as of this encounter (statuses as of 01/04/2024) Active Problems Patient Care Coordination No te Formatting of this note migh t be different from the original. Good connectivity [facility] for wound care [phone] Televideo if needed. Problem Noted Date Diagnosed [...] podiatry,. Letter in chart from [facility] podiatry they were unable to get in touch with him. Given phone number to call and make appt. He stated he is willing to do this. Assessment & Plan (07/13/2021 12:15 PM EDT): Toe ulcer present>1 month. Needs xray to rule out osteomyelitis--he will go to [facility] for [facility]. Non-pressure chronic [...] H/O gastric bypass 11/27/2018 Overview (11/27/2018): RYGB [facility] current use of 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 [...] ICD-10 update of inactive term PLATT RESEARCH OTHER*[id number] 02/20/2007 SPINAL STENOSIS-LUMBAR 09/23/2002 Vitamin D deficiency Cervical spinal stenosis documented as of this encounter (statuses as of 01/04/2024) Resolved Problems Problem Noted Date Diagnosed Date [...] early next week will need [facility] provider recheck Multiple and open wound [...] 11/17/19 23 LUMBAGO 12/24/2002 05/09/2007 LOC PRIM [id number] 12/24/200208/13 DEGENERATIVE SKIN DISORD 12/24/2002 VERTEBRAL FX [...] as of this encounter (statuses as of 01/04/2024) Immunizations Name Administration Dates Next Due COVID-19 [...] No 10/31/2023 Does the household have a [facility] source of income? 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 * Monty Jay CRNP - 11/02/2023 4:10 PM EDT Results for orders placed or performed in visit on 11/01/23 FERRITIN Result Value Ref Range Ferritin 121 30 - 400 ng/mL RETICULOCYTE PANEL Result Value Ref Range Reticulocyte Percent 1.20 0.80 - 1.90 % Absolute Reticulocyte 35.8 31.3 - 100.1 K/uL Immature Reticuloctye Fraction 16.9 2.5 - 20.6 % Reticulocyte Hemoglobin 27.3 (L) 29.7 - 37.4 pg LD Result Value Ref Range LD 181 <=250 U/L VITAMIN B12 Result Value Ref Range Vitamin B12 951 232 - 1,245 pg/mL FOLIC ACID Result Value Ref Range Folic Acid 13.1 >4.5 ng/mL *Note: Due to a large number of results and/or encounters for the requested time period, some results have not been displayed. A complete set of results can be found in Results Review. Reviewed lab work with Dr. Coates. Will order one dose of IV Monoferric 1,000 mg to be givenon same day as new patient visit if possible. * Halie Stinson LPN - 11/02/2023 2:51 PM EDT Discussed care plan with patient or proxy?: Yes, Patient accepted offer for an appointment with on Monday11/06/2023 at 1:30 pm. Provided patient with directions to SP office and SP telephone number. He verbalized understanding and denies any questions at this time. Communicated with patient on Date (mm/dd/yyyy): 11/02/2023 at Time ([facility]): 2:51 PM Additional imaging needed: No Additional imaging orders pended: No Further labs recommended and ordered: Yes Bone Marrow biopsy recommended:No [facility] clinic review recommended: No * Monty Jay CRNP - 11/01/2023 8:49 PM EDT Hematology New Referral Triage Note 73 y/o male referred for anemia d/t stage 4 CKD. Other PMH include DM type II, HTN, DLD, PLATT, venous insufficiency, atrial fibrillation on warfarin, CVA, s/p gastric bypass, MINERVA, hyperparathyroidism, CHF, chronic diabetic ulcer to right foot and past MN. Patient was admitted to [facility] 10/21/23 - 10/25/23 with acute on chronic anemia d/t GIB. Hgb 6.8 on admission, appears previous baseline was around 10-11. Normocytic indices. Received 2 units of PRBC. Unclear if IV iron was administered. No endoscopy was completed d/t no signs of active bleeding. Hgb improved to 7.3 on discharge. No significant abnormalities in other cell lines. Repeat CBCd currently pending. Per PCP documentation meeting with n ephrology next week to discuss possibility of dialysis. Timeframe to be seen: 10 days Can the patient be seen by an advanced practitioner? no Are additional labs or studies needed prior to initial visit? Yes - added on to lab work completed today Is an infusion appointment needed after initial visit? Pending lab results Discussed care plan with patient or proxy?: No nurse to call. Previously seen hematology? No OLEG Arellano Hematology * Halie Stinson LPN - 11/01/2023 12:22 PM EDT New Patient Triage What is the diagnosis/reason for referral?: Anemia due to stage 4 chronic kidney disease Enter order ID here: [id number] Specialty specific documentation: Hematology/Oncology NEW PATIENT - HEMATOLOGY/ONCOLOGY SPECIALTY TRIAGE Triage needed?: Yes Referring provider name: Dr. Lloyd DO Confirmation of diagnosis: No TRIAGE PLAN: Baseline/staging imaging complete: No Labs available: Yes Please see Labs scanned in under Media: 10/27/2023 and 10/24/2023 Labs done at [facility] under Care Everywhere, 10/24/2023 Referral to other specialty recommended (ie. Surgery, outpatient infusion): No Additional triage comments: Please see OV 11/01/2023 Dr. Desai Discharge Summary from [facility] ED scanned in under Media, 10/24/2023 documented in this encounter Miscellaneous Notes * Addendum Note - Monty Jay CRNP - 11/02/2023 4:12 PM EDTAddended by: MONTY JAY on: 11/02/2023 04:12 PM Modules accepted: Orders * Addendum Note - Monty Jay CRNP - 11/01/2023 9:15 PM EDTAddended by: MONTY JAY on: 11/01/2023 09:15 PM Modules accepted: Orders documented in this encounter Plan of Treatment Upcoming Encounters Date Type Department Care Team (Late st Contact Info) Description 01/10/2024 6:30 AM EST Anticoagulation Centralized Clinical Pharmacy Services, Ilya Lafleur [address] [place] [address] [place] [address] [facility], [address] [place] [address] 01/15/2024 1:10 PM EST Laboratory Laboratory [facility] [place] [address] [facility] [place] [phone] Kayley, Lab [facility] [address] [facility] [place] [address] 01/15/2024 1:30 PM EST Office Visit Hematology/Oncology [facility] [place] [address] [place] [phone] Monse Coates MD [address] [place] [address] [place] [phone] 01/15/2024 2:00 PM EST Immunization/Injection Hematology/Oncology Treatment, [place] [address] [place] [phone] Kayley, Chair 7 Hem Onc [facility] 200 [facility] [place] [address] 01/19/2024 9:00 AM EST Office Visit Gastroenterology [address] [place] [address] Moon Avila CRNP [address] [place] [address] 02/20/2024 12:30 PM EST Nurse Only Ancillary [address] [place] [address] [place], Nurse [address] [place] [address] 03/08/2024 2:30 PM EST Office Visit Family Medicine [address] [place] [phone] Jocelyne Desai, [address] [place] [address] 04/16/2024 3:00 PM EST Office Visit Nephrology [address] [place] [address] Jennifer Agustin MD [address] [facility] [address] Pending Results Name Type Priority Associated Diagnoses Date /Time ERYTHROPOIETIN (EPO) Lab Routine 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) 01/04/2024 1:42 PM EST Scheduled Procedures Name Priority Associated [...] encounter Medical Devices Implanted Type Area Manager Sterile Device Identifier Shelf Expiration Date Model / Serial / Lot Shaft Fibula 6cm [id number] - [id number] Implanted:Qty: 1 on 09/05/2008 at OR [facility] Tissue - Human N/A: Spine Cervical MUSCULOSKELETAL TRANSPLANT FND 04/20/2010 [id number] / [id number] / Stent Eso Gw 22x70 [id number] - [id number] Implanted:Qty: 1 on 01/21/2008 at OR [facility] N/A: Esophagus ALVE[employer]US INC 04/12/2009 [id number] / / [id number] Depuy Uniplate 32 Implanted:Qty: 1 on 09/05/2008 [...] [facility] [place] N/A: Neck 1773-06-146 / [id number] / Plate Zach 3 Level Ti 54mm - [id number] Implanted:Qty: 1 on 05/07/2010 at OR [facility] N/A: Neck JNJ : DEPUY SPINE [id number] / / Screw Zach Const St Ti 14mm - [id number] Implanted:Qty: 4 on 05/07/2010 at OR [facility] N/A: Neck JNJ : DEPUY SPINE [id number] / / Screw 3.5x14 Mntr Fa [id number] - [id number] Implanted:Qty: 8 on 05/07/2010 at OR [facility] N/A: Spine Cervical JNJ : ETHICON CARDIOVATIONS [id number] / / Jarrell [id number] - [id number] Implanted:Qty: 1 on 05/07/2010 at OR [facility] N/A: Spine Cervical JNJ : ETHICON CARDIOVATIONS [id number] / / Screw Inner Mntr [id number] - [id number] Implanted:Qty: 8 on 05/07/2010 at OR [facility] N/A: Spine Cervical JNJ : ETHICON CARDIOVATIONS [id number] / / Envista Intraocular Lens Implanted:Qty: 1 on 03/10/2022 by Liang Marshall MD at OR [facility] Right: Eye BAUSCH & LOMB 08/13/2023 [id number] / [id number] / [id number] Envista Intraocular Lens Implanted:Qty: 1 on 03/24/2022 by Liang Marshall MD at OR [facility] Left: Eye BAUSCH & LOMB 07/13/2024 [id number] / [id number] / [id number] documented as of this encounter Procedures Procedure Name Priority Date/Time Associated Diagnosis Comments RETICULOCYTE PANEL Routine 11/01/2023 11 :40 AM EDT 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) FOLIC ACID Routine 11/01/2023 11:40 AM EDT 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) LD Routine 11/01/2023 11:40 AM EDT 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) FERRITIN Routine 11/01/2023 11:40 AM EDT 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) VITAMIN B12 Routine 11/01/2023 11:40 AM EDT 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) documented in this encounter Results * FOLIC ACID (11/01/2023 11:40 AM EDT) Folic Acid 13.1 >4.5 ng/mL 11/02/2023 4:10 AM EDT LABORATORY [facility] Blood Venous blood specimen / Unknown Venipuncture / Unknown 11/01/2023 11:40 AM EDT 11/01/2023 11:40 AM EDT us Monty DEJESUS LAB BLOOD ORDERABLES Fi nal Result LABORATORY [facility] [address] [place] [address] * VITAMIN B12 (11/01/2023 11:40 AM EDT) Vitamin B12 951 232 - 1,245 pg/mL 11/02/2023 4:10 AM EDT LABORATORY [facility] Blood Venous blood specimen / Unknown Venipuncture / Unknown 11/01/2023 11:40 AM EDT 11/01/2023 11:40 AM EDT us Monty DEJESUS LAB BLOOD ORDERABLES Fi nal Result LABORATORY [facility] [address] [place] [address] * LD (11/01/2023 11:40 AM EDT) [facility] LD 181 <=250 U/L 11/02/2023 3:2 7 AM EDT LABORATORY [facility] Blood Venous blood specimen / Unknown Venipuncture / Unknown 11/01/2023 11:40 AM EDT 11/01/2023 11:40 AM EDT Monty DEJESUS LAB BLOOD ORDERABLES Fi nal Result Performing Organization Address [facility] de Phone Number LABORATORY [facility] [address] [place] [address] * (ABNORMAL) RETICULOCYTE PANEL (11/01/2023 11:40 AM EDT) [facility] Reticulocyte Percent 1.20 0.80 - 1.90 % 11/01/2023 10:35 PM EDT LABORATORY [facility] Absolute Reticulocyte 35.8 31.3 - 100.1 K/uL 11/01/2023 10:35 PM EDT LABORATORY C Immature Reticuloctye Fraction 16.9 2.5 - 20.6 % 11/01/2023 10:35 PM EDT LABORATORY [facility] Reticulocyte Hemoglobin 27.3(L) 29.7 - 37.4 pg 11/01/2023 10:35 PM EDT LABORATORY [facility] Blood Venous blood specimen / Unknown Venipuncture / Unknown 11/01/2023 11:40 AM EDT 11/01/2023 11:40 AM EDT Monty DEJESUS LAB BLOOD ORDERABLES Fi nal Result Performing Organization Address [facility] Co de Phone Number LABORATORY [facility] [address] [place] [address] * FERRITIN (11/01/2023 11:40 AM EDT) [facility] Ferritin 121 30 - 400 ng/mL 11/02/2023 4:10 AM EDT LABORATORY [facility] Blood Venous blood specimen / Unknown Venipuncture / Unknown 11/01/2023 11:40 AM EDT 11/01/2023 11:40 AM EDT Monty Norrisyudith DEJESUS LAB BLOOD ORDERABLES Fi nal Result LABORATORY [facility] [address] [place] [address] documented in this encounter Visit Diagnoses Diagnosis [...] deficiency anemia secondary to blood loss (chronic) H/O gastric bypass Bariatric surgery status documented in this encounter Advance Directives Documents on File Type Date Recorded Patient Combination Man Expl anation POLST 01/26/2021 [place] [facility] FOR [...] Power of Attor andrew? No Care Teams Apartment Community Manager Relationship Specialty Start Date End Date Jocelyne Desai DO [address] [place] [address] [place] [address] PCP - General Internal Medicine 11/09/16 documented as of this encounter
--- OUTSIDE RECORDS SUMMARY | 2024-01-29 17:46 | External Medical Summary | Summary of Care ---
Author Name Unknown Organization [facility] Address [address] [facility] [place] [address] Phone [phone] Care Team Providers Care Wireless Sales Expert Name Role Phone DesaiJocelyne DO Primary Care Provider + [phone] Reason for Visit * Reason Comments Medication Administration Retacrit * Episode Based Medications (Routine) - Authorized Specialty Diagnoses / Procedures Referred By Contzahida t Referred To Contact Diagnoses 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) Iron deficiency anemia due to chronic blood loss Procedures PA INJ RETACRIT NON-ESRD USE Monse Coates MD [address] [facility] [place] [address] Phone: tel: fax: Hematology/Oncology Treatment, [address] [phone] Phone: tel: fax: Referral ID Status Reason Start Date Expiration Date V isits Requested Visits Authorized [id number] Authorized 11/13/2023 11/12/2024 [id number] Encounter Details Date Type Department Care Team (Late st Contact Info) Description 11/20/2023 1:30 PM EDT Immunization/I njection Hematology/Oncology Treatment, [address] [phone] Kayley, Chair 7 Hem On[address] [place] [address] 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)*; Iron deficiency anemia due to chronic blood loss Allergies No known active allergiesdocumented as of this encounter (statuses as of 12/28/2023) Medications ACETAMINOPHEN 500 MG PO TABS 2 [...] 6:22 PM EDT 07/25/19 24 024 Discontinued Doxycycline Hyclate 100 MG Oral Tablet [...] as of this encounter (statuses as of 12/28/2023) Active Problems Patient Care Coordination No te Formatting of this note migh t be different from the original. Good connectivity [facility] for wound care [phone] Televideo if needed. Problem Noted Date Diagnosed [...] obstruction 06/28/2023 Stasis ulcer 06/28/2023 History of [place] (myocardial infarction) 11/09/2021 Trigger [...] up with podiatry,. Letter in chart from [facility] podiatry they were unable to get in touch with him. Given phone number to call and make appt. He stated he is willing to do this. Assessment & Plan (07/13/2021 12:15 PM EDT): Toe ulcer present>1 month. Needs xray to rule out osteomyelitis--he will go to [facility] for [facility]. 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 [...] ICD-10 update of inactive term PLATT RESEARCH OTHER*[id number] 02/20/2007 SPINAL STENOSIS-LUMBAR 09/23/2002 Vitamin D deficiency Cervical spinal stenosis documented as of this encounter (statuses as of 12/28/2023) Resolved Problems Problem Noted Date Diagnosed Date [...] [place] office early next week will need [facility] provider recheck Multiple and open wound of [...] 11/17/19 23 LUMBAGO 12/24/2002 05/09/2007 LOC PRIM [id number] 12/24/200208/13 DEGENERATIVE SKIN DISORD 12/24/2002 VERTEBRAL FX [...] as of this encounter (statuses as of 12/28/2023) Immunizations Name Administration Dates Next Due COVID-19 mRNA, LNP-s, No Pre serve, 2-Dose Series (Moderna) 03/19/2020 COVID-19 mRNA, LNP-s, No Pre serve, 2-Dose Series (Pfizer) 02/16/2021,04/09/2020,03/19/2020 COVID-19, MRNA-LNP, PF, 30 M CG/0.3 mL, 12 YRS AND ABOVE, IM ([facility]) 11/16/2022 Covid-19, Mrna, Lnp-s, Pf, B ivalent, [...] 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 Patient tolerated injection and will return in 1 week for lab and injection. documented in this encounter Plan of Treatment Upcoming Encounters Date Type Department Care Team (Late st Contact Info) Description 01/01/2024 10:30 AM EST Laboratory Laboratory [facility] [place] [address] [place] [phone] Kayley Lab [facility] [address] [place] [address] 01/01/2024 11:00 AM EST Immunization/Injection Hematology/Oncology Treatment, [place] [address] [facility] [place] [phone] Kayley, Chair 7 Hem Onc [place] [address] [place] [address] 01/02/2024 6:30 AM EST Anticoagulation Centralized Clinical Pharmacy Services, Ilya Lafleur [address] [place] [address] [place] [address] [place] [address] 01/15/2024 1:10 PM EST Laboratory Laboratory [facility] [place] [address] [place] [phone] Kayley Lab [facility] [address] [place] [address] 01/15/2024 1:30 PM EST Office Visit Hematology/Oncology [facility] [address] [place] [phone] Monse Coates MD [address] [place] [address] [place] [phone] 01/15/2024 2:00 PM EST Immunization/Injection Hematology/Oncology Treatment, [place] 200 [facility] [place] [phone] Park, Chair 7 Hem Onc [facility] 200 [facility] [place] [address] 01/19/2024 9:00 AM EST Office Visit Gastroenterology [address] [place] [address] Moon Avila CRNP [address] [place] [address] 02/20/2024 12:30 PM EST Nurse Only Ancillary [address] [place] [address] [place], Nurse Annual [address] [place] [address] 03/08/2024 2:30 PM EST Office Visit Family Medicine [address] [place] [phone] [address] [place] [address] 04/16/2024 3:00 PM EST Office Visit Nephrology [address] [place] [address] Jennifer Agustin MD [address] [place] [address] Scheduled Procedures Name Priority Associated Diagnoses Date/Ti [...] this encounter Medical Devices Implanted Type Area Journeyman Lineman Device Identifier Shelf Expiration Date Model / Serial / Lot Shaft Fibula 6cm [id number] - [id number] Implanted:Qty: 1 on 09/05/2008 at OR [facility] Tissue - Human N/A: Spine Cervical MUSCULOSKELETAL TRANSPLANT FND 04/20/2010 [id number] / [id number] / Stent Eso Gw 22x70 [id number] - [id number] Implanted:Qty: 1 on 01/21/2008 at OR [facility] N/A: Esophagus ALVEOLUS INC 04/12/2009 [id number] / / [id number] Depuy Uniplate 32 Implanted:Qty: 1 on 09/05/2008 at OR [facility] N/A: Spine Cervical TAMMY & TAMMY DEPUY 1897--302 / / Depuy Uniplate Screw 14mm Implanted:Qty: 2 on 09/05/2008 at OR [facility] N/A: Spine Cervical TAMMY & TAMMY DEPUY 1897--017 / / Depuy Lordotic Bengal Cage Implanted:Qty: 1 on 05/07/2010 at OR [facility] N/A: Neck 1773-06-146 / [id number] / Plate Zach 3 Level Ti 54mm - [id number] Implanted:Qty: 1 on 05/07/2010 at OR [facility] N/A: Neck JNJ : DEPUY SPINE [id number] / / Screw Zach Const St Ti 14mm - [id number] Implanted:Qty: 4 on 05/07/2010 at OR [facility] N/A: Neck JNJ : DEPUY SPINE [id number] 14 / / Screw 3.5x14 Mntr Fa [id number] - [id number] Implanted:Qty: 8 on 05/07/2010 at OR [facility] N/A: Spine Cervical JNJ : ETHICON CARDIOVATIONS [id number] / / Jarrell [id number] - [id number] Implanted:Qty: 1 on 05/07/2010 at OR [facility] N/A: Spine Cervical JNJ : ETHICON CARDIOVATIONS [id number] / / Screw Inner Mntr [id number] - [id number] Implanted:Qty: 8 on 05/07/2010 at OR [facility] N/A: Spine Cervical JNJ : ETHICON CARDIOVATIONS [id number] / / Envista Intraocular Lens Implanted:Qty: 1 on 03/10/2022 by Liang Marshall MD at OR [facility] Right: Eye BAUSCH & LOMB 08/13/2023 [id number] / [id number] / [id number] Envista Intraocular Lens Implanted:Qty: 1 on 03/24/2022 by Liang Marshall MD at OR [facility] Left: Eye BAUSCH & LOMB 07/13/2024 [id number] / [id number] / [id number] documented as of this encounter Visit Diagnoses [...] disease, with long-term current use of insulin ([facility]) Venous insufficiency of both lower extremities [...] Date Dose Rate Site Epoetin Sam-epbx (Retacrit) 86444 UNIT/ML inj 10,000 Units 10,000 Units, Subcutaneous, ONCE, On 11/20/23 at 1515, For 1 doseIndications: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),Iron deficiency anemia due to chronic blood loss Given 11/20/2023 3:45 PM EDT 10,000 Units Arm Right Upper documented in this encounter Advance Directives Documents on File Type Date Recorded Patient Oil Speculator Expl anation POLST 01/26/2021 [place] [facility]AINING TREATMENT * No Code [...] Power of Attor andrew? No Care Teams Wireless Sales Expert Relationship Specialty Start Date End Date Jocelyne Desai DO [address] [place] [address] [place] [address] PCP - General Internal Medicine 11/09/16 documented as of this encounter
--- OUTSIDE RECORDS SUMMARY | 2024-01-29 17:46 | External Medical Summary | Summary of Care ---
Author Name Unknown Organization [facility] Address [address] [facility] [place] [address] Phone [phone] Care Team Providers Care Order Tracer Name Role Phone DesaiElissaJocelynejohn Cunninghambritany ASHTON Primary Care Provider + [phone] Reason for Visit * Reason Comments Outpatient Testing Encounter Details Date Type Department Care Team (Late st Contact Info) Description 01/04/2024 1:40 PM EST Laboratory Laboratory [address] [place] [address] [address] [place] [address] 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); Iron deficiency anemia due to chronic blood loss; Kidney disease, chronic, stage IV (GFR 15-29 ml/min) ([facility]) Allergies No known active allergiesdocumented as of [...] disease, chronic, stage IV (GFR 15-29 ml/min) ([facility]) Take 1 Tablet by mouth in the morning and 1 Tablet before bedtime. 120 Tablet 3 4 Active documented as of this encounter (statuses as of 01/04/2024) Active Problems Patient Care Coordination No te Formatting of this note migh t be different from the original. Good connectivity [facility] for wound care [phone] Televideo if needed. Problem Noted Date Diagnosed [...] with podiatry,. Letter in chart from [facility] podiatry they were unable to get in touch with him. Given phone number to call and make appt. He stated he is willing to do this. Assessment & Plan (07/13/2021 12:15 PM EDT): Toe ulcer present>1 month. Needs xray to rule out osteomyelitis--he will go to [facility] for xray. 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 Not on file Not on file documented as of this encounter Plan of Treatment Upcoming Encounters Date Type Department Care Team (Late st Contact Info) Description 01/10/2024 6:30 AM EST Anticoagulation Centralized Clinical Pharmacy Services, Ilya Lafleur [address] [place] [address] [place] [address] [place] [address] 01/15/2024 1:10 PM EST Laboratory Laboratory State Gallo Henley [address] [place] [phone] Presley Zaldivar Scenery 200 [facility] [place] [address] 01/15/2024 1:30 PM EST Office Visit Hematology/Oncology Scenery [facility] [address] [place] [phone] Monse Coates MD [address] [place] [address] [place] [phone] 01/15/2024 2:00 PM EST Immunization/Injection Hematology/Oncology Treatment, [place] [address] [facility] [address] [place] [address] Kaylye, Chair 7 Hem Onc Scene 200 [facility] [place] [address] 01/19/2024 9:00 AM EST Office Visit Gastroenterology [address] [place] [address] Moon Avila CRNP [address] [place] [address] 02/20/2024 12:30 PM EST Nurse Only Ancillary [address] [place] [address] M[place], Nurse [address] [place] [address] 03/08/2024 2:30 PM EST Office Visit Family Medicine [address] [place] [phone] Jocelyne Desai, [address] [place] [address] 04/16/2024 3:00 PM EST Office Visit Nephrology [address] [place] [address] Jennifer Agustin MD [address] [place] [address] Pending Results Name Type Priority Associated Diagnoses Date /Time CBC WITH WBC DIFFERENTIAL Lab STAT 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) Iron deficiency anemia due to chronic blood loss 01/04/2024 1:42 PM EST BASIC METABOLIC PANEL Lab Routine Kidney disease, chronic, stage IV (GFR 15-29 ml/min) (HCC) 01/04/2024 1:42 PM EST CBC Lab STAT 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) Iron deficiency anemia due to chronic blood loss 01/04/2024 1:42 PM EST DIFFERENTIAL, AUTOMATED Lab STAT 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) Iron deficiency anemia due to chronic blood loss 01/04/2024 1:42 PM EST Scheduled Procedures Name [...] this encounter Medical Devices Implanted Type Area Doctor Of Naprapathic Medicine Device Identifier Shelf Expiration Date Model / Serial / Lot Shaft Fibula 6cm [id number] - [id number] Implanted:Qty: 1 on 09/05/2008 [place] [facility] [place] - Human N/A: Spine Cervical MUSCULOSKELETAL TRANSPLANT FND 04/20/2010 [id number] / [id number] 0P / Stent Eso Gw 22x70 [id number] - [id number] Implanted:Qty: 1 on 01/21/2008 at [place] [facility] N/A: Esophagus ALVEOLUS INC 04/12/2009 51113-765 / / [id number] Depuy Uniplate 32 Implanted:Qty: 1 on 09/05/2008 [...] Plate Zach 3 Level Ti 54mm - [id number] Implanted:Qty: 1 on 05/07/2010 at [place] [facility] N/A: Neck JNJ : DEPUY SPINE [id number] / / Screw Zach Const St Ti 14mm - [id number] Implanted:Qty: 4 on 05/07/2010 at [place] [facility] N/A: Neck JNJ : DEPUY SPINE [id number] 14 / / Screw 3.5x14 Mntr Fa [id number] - [id number] Implanted:Qty: 8 on 05/07/2010 at [place] [facility] [place] N/A: Spine Cervical JNJ : ETHICON CARDIOVATIONS [id number] / / Jarrell [id number] - [id number] Implanted:Qty: 1 on 05/07/2010 at [place] [facility] [place] N/A: Spine Cervical JNJ : ETHICON CARDIOVATIONS [id number] / / Screw Inner Mntr [id number] - [id number] Implanted:Qty: 8 on 05/07/2010 at [place] [facility] N/A: Spine Cervical JNJ : ETHICON CARDIOVATIONS [id number] / / Envista Intraocular Lens Implanted:Qty: 1 on 03/10/2022 by Liang Marshall MD at OR [facility] Right: Eye BAUSCH & LOMB 08/13/2023 [id number] / [id number] / [id number] Envista Intraocular Lens Implanted:Qty: 1 on 03/24/2022 by Liang Marshall MD at OR [facility] Left: Eye BAUSCH & LOMB 07/13/2024 [id number] / [id number] / [id number] documented as of this encounter Visit Diagnoses Diagnosis Right great toe amputee (HCC)- Primary Diabetic ulcer of toe of right foot associated with type 2 diabetes mellitus, limited to breakdown of skin ([facility]) Cellulitis of right leg Cellulitis and abscess of leg, except foot Type 2 diabetes, controlled, with peripheral neuropathy ([facility]) Type II or unspecified type diabetes mellitus with neurological manifestations, not stated as uncontrolled Status post amputation of lesser toe of right foot ([facility]) Type 2 diabetes mellitus with stage 3b chronic kidney disease, with long-term current use of insulin ([facility]) Venous insufficiency of both lower extremities Multiple open wounds of left lower leg Type 2 diabetes mellitus with peripheral vascular disease ([facility]) Diabetic ulcer of toe of right foot associated with type 2 diabetes mellitus, limited to breakdown of skin ([facility])- Primary 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) Iron deficiency anemia due to chronic blood loss Iron deficiency anemia secondary to blood loss (chronic) Kidney disease, chronic, stage IV (GFR 15-29 ml/min) (HCC) Chronic kidney disease, Stage IV (severe) documented in this encounter Advance Directives Documents on File Type Date Recorded 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 No Care Teams Order Tracer Relationship Specialty Start Date End Date Jocelyne Desai DO [address] [place] [address] [place] [address] PCP - General Internal Medicine 11/09/16 documented as of this encounter
--- OUTSIDE RECORDS SUMMARY | 2024-01-29 17:46 | External Medical Summary | Summary of Care ---
Author Name Unknown Organization [facility] Address [address] [facility] [place] [address] Phone [phone] Care Team Providers Care Manufacturing Plant Technician Name Role Phone Jocelyne Desai DO Primary Care Provider + [phone] Encounter Details Date Type Department Care Team (Late st Contact Info) Description 01/01/2024 Population Health External Data Unspecified Department Allergies No known active allergiesdocumented as of this encounter (statuses as of 01/01/2024) Medications ACETAMINOPHEN 500 MG PO TABS 2 [...] stage IV (GFR 15-29 ml/min) ([facility]) Take 1 Tablet by mouth in the morning and 1 Tablet before bedtime. 120 Tablet 3 4 Active documented as of this encounter (statuses as of 01/01/2024) Active Problems Patient Care Coordination No te Formatting of this note migh t be different from the original. Good connectivity [facility] for wound care [phone] Televideo if needed. 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 [...] ICD-10 update of inactive term PLATT RESEARCH OTHER*[id number] 02/20/2007 SPINAL STENOSIS-LUMBAR 09/23/2002 Vitamin D deficiency Cervical spinal stenosis documented as of this encounter (statuses as of 01/01/2024) Resolved Problems Problem Noted Date Diagnosed Date [...] [facility] office early next week will need [facility] provider recheck Multiple and open [...] 11/17/19 23 LUMBAGO 12/24/2002 05/09/2007 LOC PRIM [id number] 12/24/200208/13 DEGENERATIVE SKIN DISORD 12/24/2002 VERTEBRAL FX [...] as of this encounter (statuses as of 01/01/2024) Immunizations Name Administration Dates Next Due COVID-19 mRNA, LNP-s, No Pre serve, 2-Dose Series (Moderna) 03/19/2020 COVID-19 mRNA, LNP-s, No Pre serve, 2-Dose Series (Pfizer) 02/16/2021,04/09/2020,03/19/2020 COVID-19, MRNA-LNP, PF, 30 M CG/0.3 mL, 12 YRS AND ABOVE, IM ([facility]) 11/16/2022 Covid-19, Mrna, Lnp-s, Pf, B [...] 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 Not on robert e Not on file Not on file Not on file Not on file Not on file 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 Not on file Not on file documented as of this encounter Plan of Treatment Upcoming Encounters Date Type Department Care Team (Late st Contact Info) Description 01/01/2024 10:30 AM EST Laboratory Laboratory Scenery [place]ley [place] [address] [place] [phone] Kayley, Lab Scenery [address] [place] [address] 01/01/2024 11:00 AM EST Immunization/Injection Hematology/Oncology Treatment, [place] [address] [place] [phone] Kayley, Chair 7 Hem Onc Scenery [address] [place] [address] 01/02/2024 6:30 AM EST Anticoagulation Centralized Clinical Pharmacy Services, Ilya Lafleur [address] [place] [address] [place] [address] [place] [address] 01/15/2024 1:10 PM EST Laboratory Laboratory Scenery Morning Sun [place] [address] [place] [phone] Kayley, Lab Scenery [address] [place] [address] 01/15/2024 1:30 PM EST Office Visit Hematology/Oncology [facility] [place] [address] [place] [phone] Monse Coates MD [address] [facility] [place] [address] 01/15/2024 2:00 PM EST Immunization/Injection Hematology/Oncology Treatment, [place] [address] [facility] [place] [address] Kayley, Chair 7 Hem Onc Scenery [address] [place] [address] 01/19/2024 9:00 AM EST Office Visit Gastroenterology [address] [place] [address] Moon Avila, OLEG [address] [place] [address] 02/20/2024 12:30 PM EST Nurse Only Ancillary [address] [place] [address] [place], Nurse [address] [place] [address] 03/08/2024 2:30 PM EST Office Visit Family Medicine [address] [place] [phone] Jocelyne Desai, [address] [place] [address] 04/16/2024 3:00 PM EST Office Visit Nephrology [address] [place] [address] Jennifer Agustin MD 200 [facility] [place], [place] [address] Scheduled Procedures Name Priority Associated Diagnoses Date/Ti [...] this encounter Medical Devices Implanted Type Area Pick Up Man Device Identifier Shelf Expiration Date Model / Serial / Lot Shaft Fibula 6cm [id number] - [id number] Implanted:Qty: 1 on 09/05/2008 at [place] [facility] [place] Tissue - Human N/A: Spine Cervical MUSCULOSKELETAL TRANSPLANT FND 04/20/2010 [id number] / [id number] 0P / Stent Eso Gw 22x70 [id number] - [id number] Implanted:Qty: 1 on 01/21/2008 at OR [facility] [place] N/A: Esophagus ALVEOLUS INC 04/12/2009 05707-353 / / [id number] Depuy Uniplate 32 Implanted:Qty: 1 on 09/05/2008 [...] Plate Zach 3 Level Ti 54mm - [id number] Implanted:Qty: 1 on 05/07/2010 at OR [facility] [place] N/A: Neck JNJ : DEPUY SPINE [id number] 54 / / Screw Zach Const St Ti 14mm - [id number] Implanted:Qty: 4 on 05/07/2010 at OR [facility] [place] N/A: Neck JNJ : DEPUY SPINE [id number] 14 / / Screw 3.5x14 Mntr Fa [id number] - [id number] Implanted:Qty: 8 on 05/07/2010 at [place] [facility] [place] N/A: Spine Cervical JNJ : ETHICON CARDIOVATIONS [id number] / / Jarrell [id number] - [id number] Implanted:Qty: 1 on 05/07/2010 at [place] [facility] [place] N/A: Spine Cervical JNJ : ETHICON CARDIOVATIONS [id number] / / Screw Inner Mntr [id number] - [id number] Implanted:Qty: 8 on 05/07/2010 at OR [facility] N/A: Spine Cervical JNJ : ETHICON CARDIOVATIONS [id number] / / Envista Intraocular Lens Implanted:Qty: 1 on 03/10/2022 by Liang Marshall MD at OR [facility] Right: Eye BAUSCH & LOMB 08/13/2023 [id number] / [id number] / [id number] Envista Intraocular Lens Implanted:Qty: 1 on 03/24/2022 by Liang Marshall MD at OR [facility] Left: Eye BAUSCH & LOMB 07/13/2024 [id number] / [id number] / [id number] documented as of this encounter Advance Directives Documents on File Type Date Recorded Patient Medical Program Specialist Expl anation POLST 01/26/2021 [place] OR [facility]-SU[facility]AINING TREATMENT [...] of Attor andrew? No Care Teams Manufacturing Plant Technician Relationship Specialty Start Date End Date Jocelyne Desai DO [address] [place] [address] [place] [address] PCP - General Internal Medicine 11/09/16 documented as of this encounter
--- OUTSIDE RECORDS SUMMARY | 2024-01-29 17:46 | External Medical Summary ---
Author Name Unknown Address Unknown Organization : Laboratory Report Ordering Provider Test Date Status MONTYPIERRE 01/04/2024 13:42:39 Final Observation Date Value Abnormality Reference (Units ) Status ERYTHROPOIETIN (EPO) 01/04/2024 13:42:39 18.2 2.6-18.5 (mIU/mL) Final Test Performed at:
[facility]
[address] [facility]
[place] [address]
Josafat Cheung M.D., Ph.D.,Director of Laboratories Performing Location
--- OUTSIDE RECORDS SUMMARY | 2024-01-29 17:46 | External Medical Summary | Summary of Care ---
Author Name Unknown Organization [facility] Address [address] [facility] [place] [address] Phone [phone] Care Team Providers Care Photographic Double Name Role Phone Jocelyne Desai DO Primary Care Provider Reason for Visit * Reason Onset Date Comments Home Health 01/01/2024 Encounter Details Date Type Department Care Team (Late st Contact Info) Description 01/01/2024 Telephone Family Medicine [address] [phone] Jocelyne Desai DO [address] [place] [address] [place] [address] Home Health Allergies No known active allergiesdocumented as of this encounter (statuses as of 01/05/2024) Medications ACETAMINOPHEN 500 MG PO TABS 2 [...] as of this encounter (statuses as of 01/05/2024) Active Problems Patient Care Coordination No te Formatting of this note migh t be different from the original. Good connectivity [facility] for wound care [phone] Televideo if needed. Problem Noted Date Diagnosed [...] podiatry,. Letter in chart from [facility] podiatry they were unable to get in touch with him. Given phone number to call and make appt. He stated he is willing to do this. Assessment & Plan (07/13/2021 12:15 PM EDT): Toe ulcer present>1 month. Needs xray to rule out osteomyelitis--he will go to [facility] for [facility]. 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 Will treat with 7 days antibiotic. If pt cannot be reassess by Dr. 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 Patient is going to go outpatient today and have his labs drawn. Wanted to make the doctor aware, they won't be drawing it. documented in this encounter Plan of Treatment Upcoming Encounters Date Type Department Care Team (Late st Contact Info) Description 01/10/2024 6:30 AM EST Anticoagulation Centralized Clinical Pharmacy Services, Ilya Lafleur [address] [place] [address] [place] [address] [facility], [address] [place] [address] 01/15/2024 1:10 PM EST Laboratory Laboratory [facility] [address] [facility] [place] [phone] Reva, Lab Scenery [address] [facility] [place] [address] 01/15/2024 1:30 PM EST Office Visit Hematology/Oncology [facility] [address] [facility] [place] [phone] Monse Coates MD [address] [place] [address] [place] [phone] 01/15/2024 2:00 PM EST Immunization/Injection Hematology/Oncology Treatment, [place] [facility] [place] [phone] Kayley, Chair 7 Hem Onc [facility] [address] [facility] [place] [address] 01/19/2024 9:00 AM EST Office Visit Gastroenterology [address] [place] [address] Moon Avila CRNP [address] [place] [address] 02/20/2024 12:30 PM EST Nurse Only Ancillary [address] [place] [address] Marleeey, Nurse [address] [place] [address] 03/08/2024 2:30 PM EST Office Visit Family Medicine [address] [place] [phone] [address] [place] [address] 04/16/2024 3:00 PM EST Office Visit Nephrology [address] [place] [address] Jennifer Agustin MD [address] [facility] [place] [address] Scheduled Procedures Name Priority Associated Diagnoses Date/Ti [...] encounter Medical Devices Implanted Type Area Credit Analyst Device Identifier Shelf Expiration Date Model / Serial / Lot Shaft Fibula 6cm [id number] - [id number] Implanted:Qty: 1 on 09/05/2008 at [place] [facility] Tissue - Human N/A: Spine Cervical MUSCULOSKELETAL TRANSPLANT FND 04/20/2010 500259 / [id number] 0P / Stent Eso Gw 22x70 17056-410 - [id number] Implanted:Qty: 1 on 01/21/2008 at OR [facility] N/A: Esophagus ALVEOLUS INC 04/12/2009 22526-602 / / [id number] Depuy Uniplate 32 Implanted:Qty: 1 on 09/05/2008 at [place] [facility] N/A: Spine Cervical TAMMY & TAMMY DEPUY 1897-02-302 / / Depuy Uniplate Screw 14mm Implanted:Qty: 2 on 09/05/2008 at [place] [facility] N/A: Spine Cervical TAMMY & TAMMY DEPUY 1897-06-017 / / Depuy Lordotic Bengal Cage Implanted:Qty: 1 on 05/07/2010 at OR [facility] N/A: Neck 1773-06-146 / 1773-06-146 / Plate Zach 3 Level Ti 54mm - [id number] Implanted:Qty: 1 on 05/07/2010 at [place] [facility] N/A: Neck JNJ : DEPUY SPINE [id number] 54 / / Screw Zach Const St Ti 14mm - [id number] Implanted:Qty: 4 on 05/07/2010 at [place] [facility] N/A: Neck JNJ : DEPUY SPINE [id number] 14 / / Screw 3.5x14 Mntr Fa [id number] - [id number] Implanted:Qty: 8 on 05/07/2010 at [place] [facility] N/A: Spine Cervical JNJ : ETHICON CARDIOVATIONS [id number] / / Jarrell [id number] - [id number] Implanted:Qty: 1 on 05/07/2010 at [place] [facility] N/A: Spine Cervical JNJ : ETHICON CARDIOVATIONS [id number] / / Screw Inner Mntr [id number] - [id number] Implanted:Qty: 8 on 05/07/2010 at [place] [facility] N/A: Spine Cervical JNJ : ETHICON CARDIOVATIONS [id number] / / Envista Intraocular Lens Implanted:Qty: 1 on 03/10/2022 by Liang Marshall MD at OR [facility] Right: Eye BAUSCH & LOMB 08/13/2023 [id number] / [id number] / [id number] Envista Intraocular Lens Implanted:Qty: 1 on 03/24/2022 by Liang Marshall MD at OR [facility] Left: Eye BAUSCH & LOMB 07/13/2024 [id number] / [id number] / [id number] documented as of this encounter Advance Directives Documents on File Type Date Recorded 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 No Care Teams Photographic Double Relationship Specialty Start Date End Date Jocelyne Desai DO [address] [place] [address] [place] [address] PCP - General Internal Medicine 11/09/16 documented as of this encounter
--- OUTSIDE RECORDS SUMMARY | 2024-01-29 17:46 | External Medical Summary ---
Author Name Unknown Address Unknown Organization K01:LABORATORY [facility] - [facility] [address] [facility] [address] [place] [address] Laboratory Report Ordering Provider Test Date Status KUSHAL DOUGHERTY 01/04/2024 13:42:39 Final Observation Date Value Abnormality Reference (Units ) Status BUN 01/04/2024 13:42:39 75 Above high normal 6-20 (mg/dL) Final Creatinine 01/04/2024 13:42:39 4.1 Above high normal 0.6-1.2 (mg/dL) Final Glomerular filtration rate/1.73 sq M.predicted [Volume Rate/Area] in Serum, Plasma or Blood by Creatinine-based formula (CKD-EPI) 01/04/2024 13:42:39 15 Below low normal >=60 (mL/min) Final eGFR is calculated based on the CKD-EPI 2020 equation. Sodium 01/04/2024 13:42:39 142 135-146 (m mol/L) Final Potassium 01/04/2024 13:42:39 4.6 3.5-5.1 (m mol/L) Final Cl 01/04/2024 13:42:39 105 98-107 (mm ol/L) Final CO2 01/04/2024 13:42:39 22 22-32 (mmo l/L) Final Anion gap 01/04/2024 13:42:39 15 7-15 (mmol /L) Final Glucose 01/04/2024 13:42:39 96 70-120 (mg /dL) Final Calcium 01/04/2024 13:42:39 6.5 Below low normal 8.4 -10.2 (mg/dL) Final Performing Location LAB[facility] - [facility] [address] [place] [address]
--- OUTSIDE RECORDS SUMMARY | 2024-01-29 17:46 | External Medical Summary ---
Author Name Unknown Address Unknown Organization K01:[facility] [place] - [facility] [address] [place] [address] Laboratory Report Ordering Provider Test Date Status ENMANUEL REARDON 01/04/2024 13:42:39 Final Observation Date Value Abnormality Reference (Units ) Status WBC, Total 01/04/2024 13:42:39 3.77 Below low normal 4.00-10.80 (K/uL) Final RBC 01/04/2024 13:42:39 3.35 4.50-5.25 (M/uL) Final Hemoglobin 01/04/2024 13:42:39 9.4 Below low normal 14.0-16.8 (g/dL) Final HCT 01/04/2024 13:42:39 31.7 Below low normal 40.0-48.4 (%) Final MCV 01/04/2024 13:42:39 94.6 82.0-99.5 (fL) Final MCH 01/04/2024 13:42:39 28.1 27.0-34.0 (pg) Final MCHC 01/04/2024 13:42:39 29.7 32.0-36.0 (g/dL) Final RDW 01/04/2024 13:42:39 16.6 11.5-15.5 (%) Final Platelets 01/04/2024 13:42:39 173 140-400 (K/uL) Final MPV 01/04/2024 13:42:39 11.1 6.6-11.1 (fL) Final Nucleated erythrocytes/100 leukocytes [Ratio] in Blood by Automated count 01/04/2024 13:42:39 0 <=0 (/100 WBCs) Final Performing Location [facility] [place] - [address] [place] [address]
--- OUTSIDE RECORDS SUMMARY | 2024-01-29 17:47 | External Medical Summary | Summary of Care ---
Author Name Unknown Organization [facility] Address [address] [facility] [address] Phone [phone] Care Team Providers Care Computer Systems Technology Instructor Name Role Phone Jocelyne Desai Primary Care Provider [phone] Reason for Visit * Reason Onset Date Comments Follow Up 12/20/2023 Encounter Details Date Type Department Care Team (Late st Contact Info) Description 12/20/2023 Telephone NephrologyCely [address] [place] [address] Jennifer Agustin MD [address] [facility] [place] [address] Follow Up Allergies No known active allergiesdocumented as of this encounter (statuses as of 12/20/2023) Medications Medication Sig Dispensed Refills Start Date [...] in the morning. 30 Capsule 07/05/2023 Active Atorvastatin Calcium 40 MG Oral [...] in the morning. with food.. 08/23/2023 Active Vitron-C 65-125 MG Oral Tablet (Iron-Vitamin C 65-125 mg per tab) Take 1 Tablet by mouth in the morning. Active Vitamin D3 10 MCG (400 UNIT) Oral Tablet Chewable Take by mouth. Activ e Sodium Bicarbonate 650 MG Oral Tablet Take 2 Tablets by mouth in the morning and 2 Tablets before bedtime. 360 Tablet 3 11/20/2023 Active Torsemide 20 MG Oral Tablet (Demadex) Take 2 Tablets by mouth in the morning and 2 Tablets in the evening. 360 Tablet 3 11/30/2023 Active Potassium Chloride Candi ER 20 MEQ Oral Tablet Extended ReleaseIndications: Kidney disease, chronic, stage IV (GFR 15-29 ml/min) ([facility]) Take 1 Tablet by mouth in the morning and 1 Tablet before bedtime. 120 Tablet 3 11/30/2023 Active documented as of this encounter (statuses as of 12/20/2023) Active Problems Patient Care Coordination No te Formatting of this note migh t be different from the original. Good connectivity [facility] for wound care [phone] Televideo if needed. Problem Noted Date Diagnosed [...] podiatry,. Letter in chart from [facility] podiatry they were unable to get [...] ICD-10 update of inactive term PLATT RESEARCH OTHER*[id number] 02/20/2007 SPINAL STENOSIS-LUMBAR 09/23/2002 Vitamin D deficiency Cervical spinal stenosis documented as of this encounter (statuses as of 12/20/2023) Resolved Problems Problem Noted Date Diagnosed Date [...] 03/09/2005 05/05/2021 ADVANCE DIRECTIVE INFORMATION 01/19/2005 12/18/2023 Overview: Yes, Patient instructed to provide copy [...] 02/27/2003 11/17/19 LUMBAGO 12/24/2002 05/09/2007 LOC PRIM [id number] 12/24/200208/13 DEGENERATIVE SKIN DISORD 12/24/2002 VERTEBRAL FX [...] as of this encounter (statuses as of 12/20/2023) Immunizations Name Administration Dates Next Due COVID-19 [...] Telephone Encounter - Libby Hurd RN - 12/20/2023 9:49 AM EST TE with Stormy at [facility] regarding PD eval for this pt. Demographics given for her to contact pt. * Telephone Encounter - Libby Hurd RN - 12/20/2023 9:49 AM EST ----- Message from Jennifer Agustin MD sent at 12/17/2023 9:30 PM EST ----- Pls contact PD nurse khoa who's covering (Stormy, regular PD nurse there) out on leave >> pt needs home visit pls for PD eval; likely start after new year * Telephone Encounter - Libby Hurd RN - 12/20/2023 9:22 AM EST ----- Message from Jennifer Agustin MD sent at 12/17/2023 9:30 PM EST ----- Pls contact PD nurse khoa who's covering (Stormy, regular PD nurse there) out on leave >> pt needs home visit pls for PD eval; likely start after new year documented in this encounter Plan of Treatment Upcoming Encounters Date Type Department Care Team (Late st Contact Info) Description 01/01/2024 10:30 AM EST Laboratory [facility] [place] [place] [address] [place] [phone] Kayley, Lab Scenery [address] [place] [address] 01/01/2024 11:00 AM EST Immunization/Injection Hematology/Oncology Treatment, [place] [address] [place] [phone] Kayley, Chair 7 Hem Onc Scen[address] [place] [address] 01/02/2024 6:30 AM EST Anticoagulation Centralized Clinical Pharmacy Services, Ilya Lafleur [address] [place] [address] [place] [address] [facility] [place] [address] 01/15/2024 1:10 PM EST Laboratory Laboratory Scenery [place] [address] [place] [phone] Kayley, Lab Scenery [address] [place] [address] 01/15/2024 1:30 PM EST [facility] [place] [address] [place] [phone] Monse Coates MD [address] [facility] [place] [address] 01/15/2024 2:00 PM EST Immunization/Injection Hematology/Oncology Treatment, [place] [address] [facility] [place] [phone] Kayley, Chair 7 Hem Onc Scene [address] [place] [address] 01/19/2024 9:00 AM EST Office Visit Gastroenterology [address] [place] [address] Moon Avila CRNP [address] [place] [address] 02/20/2024 12:30 PM EST Nurse Only Ancillary [address] [place] [address] [place], Nurse [address] [place] [address] 03/08/2024 2:30 PM EST Office Visit Family Medicine [address] [place] [phone] Jocelyne Desai, [address] [place] [address] 04/16/2024 3:00 PM EST Office Visit Nephrology [address] [place] [address] Jennifer Agustin MD 200 [facility] [place], [place] [address] Scheduled Procedures Name Priority Associated Diagnoses Date/Ti [...] this encounter Medical Devices Implanted Type Area Pharmaceutical Laboratory Technician Device Identifier Shelf Expiration Date Model / Serial / Lot Shaft Fibula 6cm [id number] - [id number] Implanted:Qty: 1 on 09/05/2008 at [place] [facility] [place] Tissue - Human N/A: Spine Cervical MUSCULOSKELETAL TRANSPLANT FND 04/20/2010 [id number] / [id number] / Stent Eso Gw 22x70 [id number] - [id number] Implanted:Qty: 1 on 01/21/2008 at [place] [facility] [place] [place] N/A: Esophagus [employer]US INC 04/12/2009 [id number] / / [id number] Depuy Uniplate 32 Implanted:Qty: 1 on 09/05/2008 [...] Plate Zach 3 Level Ti 54mm - [id number] Implanted:Qty: 1 on 05/07/2010 at [place] [facility] [place] [place] N/A: Neck JNJ : DEPUY SPINE [id number] / / Screw Zach Const St Ti 14mm - [id number] Implanted:Qty: 4 on 05/07/2010 at [place] [facility] [place] [place] N/A: Neck JNJ : DEPUY SPINE [id number] / / Screw 3.5x14 Mntr Fa [id number] - [id number] Implanted:Qty: 8 on 05/07/2010 at OR [facility] [place] N/A: Spine Cervical JNJ : ETHICON CARDIOVATIONS [id number] / / Jarrell [id number] - [id number] Implanted:Qty: 1 on 05/07/2010 at [place] [facility] [place] [place] N/A: Spine Cervical JNJ : ETHICON CARDIOVATIONS [id number] / / Screw Inner Mntr [id number] - [id number] Implanted:Qty: 8 on 05/07/2010 at [place] [facility] [place] N/A: Spine Cervical JNJ : ETHICON CARDIOVATIONS [id number] / / Envista Intraocular Lens Implanted:Qty: 1 on 03/10/2022 by Liang Marshall MD at OR [facility] Right: Eye BAUSCH & LOMB 08/13/2023 [id number] / [id number] / [id number] Envista Intraocular Lens Implanted:Qty: 1 on 03/24/2022 by Liang Marshall MD at OR [facility] Left: Eye BAUSCH & LOMB 07/13/2024 [id number] / [id number] / [id number] documented as of this encounter Advance Directives Documents on File Type Date Recorded 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 No Care Teams Computer Systems Technology Instructor Relationship Specialty Start Date End Date Jocelyne Desai DO [address] [place] [address] [place] [address] PCP - General Internal Medicine 11/09/16 documented as of this encounter
--- OUTSIDE RECORDS SUMMARY | 2024-01-29 17:47 | External Medical Summary | Summary of Care ---
Author Name Unknown Organization [facility] Address [address] [facility] [address] Phone [phone] Care Team Providers Care Overlock Elastic Attacher Name Role Phone Jocelyne Desai Primary Care Provider Reason for Visit * Reason Onset Date Comments Follow Up 12/20/2023 Encounter Details Date Type Department Care Team (Late st Contact Info) Description 12/20/2023 Telephone NephrologyCely [address] [place] [address] Jennifer Agustin MD 200 [facility] [place] [address] Follow Up Allergies No known active allergiesdocumented as of this encounter (statuses as of 12/25/2023) Medications ACETAMINOPHEN 500 MG PO TABS 2 [...] the evening. 360 Tablet 3 4 Active Potassium Chloride Candi ER 20 MEQ Oral Tablet Extended ReleaseIndicatio ns:Kidney disease, chronic, stage IV (GFR 15-29 ml/min) ([facility]) Take 1 Tablet by mouth in the morning and 1 Tablet before bedtime. 120 Tablet 3 4 Active documented as of this encounter (statuses as of 12/25/2023) Active Problems Patient Care Coordination No te Formatting of this note migh t be different from the original. Good connectivity [facility] for wound care [phone] Televideo if needed. Problem Noted Date Diagnosed [...] out osteomyelitis--he will go to [facility] for xray. Non-pressure chronic ulcer [...] ICD-10 update of inactive term PLATT RESEARCH OTHER*[id number] 02/20/2007 SPINAL STENOSIS-LUMBAR 09/23/2002 Vitamin D deficiency Cervical spinal stenosis documented as of this encounter (statuses as of 12/25/2023) Resolved Problems Problem Noted Date Diagnosed Date Resolved Date Chronic kidney disease (CKD) , stage IV (severe) 09/27/2023 10/26/2023 Depression, unspecified 11/09/2021 03/2 Depression, unspecified 11/09/2021 10/0 05/2022 Cellulitis of right leg 07/13/2021 1005/2022 Assessment & Plan (07/13/2021 12:14 PM EDT): Suspect this could be early/localized. Will treat with 7 days antibiotic. If pt cannot be reassess by Dr. Braxton office early next week will need [facility] provider recheck Multiple and open wound of [...] 11/17/19 23 LUMBAGO 12/24/2002 05/09/2007 LOC PRIM [id number] 12/24/200208/13 DEGENERATIVE SKIN DISORD 12/24/2002 VERTEBRAL FX [...] as of this encounter (statuses as of 12/25/2023) Immunizations Name Administration Dates Next Due COVID-19 mRNA, LNP-s, No Pre serve, 2-Dose Series (Moderna) 03/19/2020 COVID-19 mRNA, LNP-s, No Pre serve, 2-Dose Series (Pfizer) 02/16/2021,04/09/2020,03/19/2020 COVID-19, MRNA-LNP, PF, 30 M CG/0.3 mL, 12 YRS AND ABOVE, IM (Yahoo!-Comirnaty) 11/16/2022 Covid-19, Mrna, Lnp-s, Pf, B ivalent, [...] 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. Message sent to Stormy. Discussion also started regarding home procrit injections vs coming in to clinic. Anabelle is going todiscuss this with her commercial finance manager and pt also states that he would be willing to do injection at home. * Telephone Encounter - Kalie Cooley OSA - 12/25/2023 10:11 AM EST Good morning, Anabelle, pt's home health nurse on the line, wanting to know where the dialysis information was sent,the pt needs to reschedule his appointment. Please give her a call at [phone] Thank you * Telephone Encounter - Libby Hurd RN - 12/20/2023 9:49 AM EST TE with Stormy at [facility] regarding PD eval for this [...] Description 01/01/2024 10:30 AM EST Laboratory Laboratory Cely [place] [address] [facility] [place] [phone] Presley Zaldivar [place] [address] [address] [place] [address] 01/01/2024 11:00 AM EST Immunization/Injection [facility]ematology[facility] [place] [facility] [phone] Kayley, Chair 7 Hem Onc Scenery [address] [place] [address] 01/02/2024 6:30 AM EST Anticoagulation Centralized Clinical Pharmacy Services, Ilya Lafleur [address] [place] [address] [place] [address] [facility], [address] [place] [address] 01/15/2024 1:10 PM EST Laboratory Laboratory [facility] [place] [address] [place] [phone] Kayley, Lab Scenery [address] [place] [address] 01/15/2024 1:30 PM EST [facility] [address] [place] [phone] Monse Coates MD [address] [place] [address] [place] [address] 01/15/2024 2:00 PM EST Immunization/Injection Hematology/Oncology Treatment, [place] [address] [place] [phone] Kayley, Chair 7 Hem Onc Scenery [address] [place] [address] 01/19/2024 9:00 AM EST Office Visit Gastroenterology [address] [place] [address] Moon Avila CRNP [address] [place] [address] 02/20/2024 12:30 PM EST Nurse Only Ancillary [address] [place] [address] [place], Nurse [address] [place] [address] 03/08/2024 2:30 PM EST Office Visit Family Medicine [address] [place] [phone] Jocelyne Desai[address] [place] [address] 04/16/2024 3:00 PM EST Office Visit Nephrology [address] [place] [address] Jennifer Agustin MD [address] [place] [address] Scheduled Procedures Name Priority Associated Diagnoses Date/Ti [...] exists Depression Screening 10/30/2024 10/31/2023 Albumin/Creatinine Ratio 11/26/202411/26/2 024, 11/01/2023, 07/18/2023, Additional history exists DTap/Tdap [...] this encounter Medical Devices Implanted Type Area Cake Winder Device Identifier Shelf Expiration Date Model / Serial / Lot Shaft Fibula 6cm [id number] - [id number] Implanted:Qty: 1 [place]05[place] [facility] [place] Human N/A: Spine Cervical MUSCULOSKELETAL TRANSPLANT FND 04/20/2010 [id number] / [id number] / Stent Eso Gw 22x70 [id number] - [id number] Implanted:Qty: 1 on 01/21/2008 [place] [facility] [place] N/A: Esophagus ALVEOLUS INC 04/12/2009 [id number] / / [id number] Depuy Uniplate 32 Implanted:Qty: 1 on 09/05/2008 [place] [facility] [place] N/A: Spine Cervical TAMMY & TAMMY DEPUY 1896-03-302 / / Depuy Uniplate Screw 14mm Implanted:Qty: 2 on 09/05/2008 [place] [facility] [place] N/A: Spine Cervical TAMMY & TAMMY DEPUY 1896--017 / / Depuy Lordotic Bengal Cage Implanted:Qty: 1 on 05/07/2010 [place] [facility] [place] N/A: Neck 1773-06-146 / 1773-06-146 / Plate Zach 3 Level Ti 54mm - [id number] Implanted:Qty: 1 on 05/07/2010 [place] [facility] [place]/A: Neck JNJ : DEPUY SPINE [id number] 54 / / Screw Zach Const St Ti 14mm - [id number] Implanted:Qty: 4 on 05/07/2010 [place] [facility] [place]/A: Neck JNJ : DEPUY SPINE [id number] 14 / / Screw 3.5x14 Mntr Fa [id number] - [id number] Implanted:Qty: 8 on 05/07/2010 [place] [facility] [place] N/A: Spine Cervical JNJ : ETHICON CARDIOVATIONS [id number] / / Jarrell [id number] - [id number] Implanted:Qty: 1 on 05/07/2010 [place] [facility] [place]/A: Spine Cervical JNJ : ETHICON CARDIOVATIONS [id number] / / Screw Inner Mntr [id number] - [id number] Implanted:Qty: 8 on 05/07/2010 [place] [facility] [place]/A: Spine Cervical JNJ : ETHICON CARDIOVATIONS [id number] / / Envista Intraocular Lens Implanted:Qty: 1 on 03/10/2022 by Liang Marshall MD at OR [facility] Right: Eye BAUSCH & LOMB 08/13/2023 [id number] / [id number] / [id number] Envista Intraocular Lens Implanted:Qty: 1 on 03/24/2022 by Liang Marshall MD at OR [facility] Left: Eye BAUSCH & LOMB 07/13/2024 [id number] / [id number] / [id number] documented as of this encounter Advance Directives Documents on File Type Date Recorded 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 No Care Teams Overlock Elastic Attacher Relationship Specialty Start Date End Date Jocelyne Desai DO [address] [place] [address] [place] [address] PCP - General Internal Medicine 11/09/16 documented as of this encounter
--- OUTSIDE RECORDS SUMMARY | 2024-01-29 17:47 | External Medical Summary | Summary of Care ---
Author Name Unknown Organization [facility] Address [address] [facility] [place] [address] Phone [phone] Care Team Providers Care Phlebotomy Services Representative Name Role Phone Jocelyne Desai DO Primary Care Provider Reason for Visit * Reason Onset Date Comments Home Health 12/15/2023 Encounter Details Date Type Department Care Team (Late st Contact Info) Description 12/15/2023 Telephone Family Medicine [address] [phone] Jocelyne Desai DO [address] [place] [address] [place] [address] Home Health Allergies No known active allergiesdocumented as of this encounter (statuses as of 12/21/2023) Medications Medication Sig Dispensed Refills Start Date [...] as of this encounter (statuses as of 12/21/2023) Active Problems Patient Care Coordination No te Formatting of this note migh t be different from the original. Good connectivity [facility] for wound care [phone] Televideo if needed. Problem Noted Date Diagnosed [...] up with podiatry,. Letter in chart from [facility] podiatry they were unable to [...] ICD-10 update of inactive term PLATT RESEARCH OTHER*[id number] 02/20/2007 SPINAL STENOSIS-LUMBAR 09/23/2002 Vitamin D deficiency Cervical spinal stenosis documented as of this encounter (statuses as of 12/21/2023) Resolved Problems Problem Noted Date Diagnosed Date [...] 11/17/19 23 LUMBAGO 12/24/2002 05/09/2007 LOC PRIM ZARODAST-R-HRB 12/24/200208/13 DEGENERATIVE SKIN DISORD 12/24/2002 VERTEBRAL FX [...] as of this encounter (statuses as of 12/21/2023) Immunizations Name Administration Dates Next Due COVID-19 [...] Telephone Encounter - Jocelyne Desai DO - 12/21/2023 9:41 AM EST There are a lot of viruses going around. As long as he is otherwise stable, would continue with expectant management. * Telephone Encounter - Srinivasa Richardson LPN - 12/15/2023 10:35 AM EDT HH Concerns Kylie RN, Calling from: [facility] Report/Concerns of: Lung sounds Symptoms: none Vitals: T-97.2 P-72 RR-18 BP -124/76 SP O2-98% RA Lung sounds-Rhonchi Jose lungs Weight-210 LB- 12/07 Wt 212 LB Blood sugar-N/A Narrative: Kylie seen patient today and reports Rhonchi jose lung sounds. Does not clear when coughed. Denies SOB,wheezing, fevers, or productive cough. Educated on breathing exercises. HH nursing visit on Mon (12/10) and wed (12/12) Jose Lungs clear. Next nursing visit 12/17 Call back Rich with any advice or orders at [phone] Please fax new orders to [facility] FYI-PCP documented in this encounter Plan of Treatment Upcoming Encounters Date Type Department Care Team (Late st Contact Info) Description 01/01/2024 10:30 AM EST Laboratory [facility] [address] [place] [phone] [place], Lab Scenery [address] [place] [address] 01/01/2024 11:00 AM EST Immunization/Injection Hematology/Oncology Treatment, [place] [address] [place] [phone] Kayley, Chair 7 Hem Onc Scenery [address] [place] [address] 01/02/2024 6:30 AM EST Anticoagulation Centralized Clinical Pharmacy Services, Ilya Lafleur [address] [place] [address] [place] [address] [place] [address] 01/15/2024 1:10 PM EST Laboratory Laboratory [facility] [address] [place] [address] Kayley, Lab Scene 200 [facility] [place] [address] 01/15/2024 1:30 PM EST Office Visit Hematology/Oncology [facility] [address] [place] [phone] Monse Coates MD [address] [facility] [place] [address] 01/15/2024 2:00 PM EST Immunization/Injection [facility]ematology[facility], [place] [facility] [address] Kayley, Chair 7 Hem Onc Scene 200 [facility] [place] [address] 01/19/2024 9:00 AM EST Office Visit Gastroenterology [address] [place] [address] Moon Avila CRNP [address] [place] [address] 02/20/2024 12:30 PM EST Nurse Only Ancillary [address] [place] [address] [place], Nurse Annual [address] [place] [address] 03/08/2024 2:30 PM EST Office Visit Family Medicine [address] [place] [phone] [place] [address] 04/16/2024 3:00 PM EST Office Visit Nephrology [address] [place], [place] [phone] Jennifer Agustin MD 200 [facility] [place], [place] [address] Scheduled Procedures Name Priority Associated Diagnoses Date/Ti [...] this encounter Medical Devices Implanted Type Area Bisque Brusher Device Identifier Shelf Expiration Date Model / Serial / Lot Shaft Fibula 6cm [id number] - [id number] Implanted:Qty: 1 on 09/05/[address] [facility] [place] - Human N/A: Spine Cervical MUSCULOSKELETAL TRANSPLANT FND 04/20/2010 [id number] / [id number] 0P / Stent Eso Gw 22x70 [id number] - [id number] Implanted:Qty: 1 on 01/21/[address] [facility] N/A: Esophagus [employer] 04/12/2009 [id number] / / [id number] Depuy Uniplate 32 Implanted:Qty: 1 on 09/05/[address] [facility] N/A: Spine Cervical TAMMY & TAMMY DEPUY 1897-02-302 / / Depuy Uniplate Screw 14mm Implanted:Qty: 2 on 09/05/[address] [facility] [place]/A: Spine Cervical TAMMY [employer] TAMMY DEPUY 1897-06-017 / / Depuy Lordotic Bengal Cage Implanted:Qty: 1 on 05/07/[address] [facility] N/A: Neck 1773-06-146 / 1773-06-146 / Plate Zach 3 Level Ti 54mm - [id number] Implanted:Qty: 1 on 05/07/[address] [facility] N/A: Neck JNJ : DEPUY SPINE [id number] / / Screw Zach Const St Ti 14mm - [id number] Implanted:Qty: 4 on 05/07/[address] [facility] N/A: Neck JNJ : DEPUY SPINE [id number] / / Screw 3.5x14 Mntr Fa [id number] - [id number] Implanted:Qty: 8 on 05/07/[address] [facility] [place]/A: Spine Cervical JNJ : [employer] [id number] / / Jarrell [id number] - [id number] Implanted:Qty: 1 on 05/07/[address] [facility] [place]/A: Spine Cervical JNJ : ETH[employer]ON [employer] [id number] / / Screw Inner Mntr [id number] - [id number] Implanted:Qty: 8 on 05/07/[address] 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 No Care Teams Phlebotomy Services Representative Relationship Specialty Start Date End Date Jocelyne Desai DO [address] [place] [address] [place] [address] PCP - General Internal Medicine 11/09/16 documented as of this encounter
--- OUTSIDE RECORDS SUMMARY | 2024-01-29 17:47 | External Medical Summary | Summary of Care ---
Author Name Unknown Organization [facility] Address [address] [facility] [place] [address] Phone [phone] Care Team Providers Care Shovel Operator Name Role Phone Jocelyne Desai DO Primary Care Provider + [phone] Reason for Visit * Reason Comments Medication Administration Retacrit 20,00 0 units * Episode Based Medications (Routine) - Authorized Specialty Diagnoses / Procedures Referred By Contac t Referred To Contact Diagnoses 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) Iron deficiency anemia due to chronic blood loss Procedures WA INJ RETACRIT NON-ESRD USE Monse Coates MD [address] [place] [address] [place] [address] Phone: tel: fax: Hematology/Oncology Treatment, [address] [place] [address] Phone: tel: fax: Referral ID Status Reason Start Date Expiration Date V isits Requested Visits Authorized [id number] Authorized 11/13/2023 11/12/2024 [id number] Encounter Details Date Type Department Care Team (Late st Contact Info) Description 12/04/2023 10:30 AM EDT Immunization/I njection Hematology/Oncology Treatment, [address] [place] [address] Kayley, Chair 7 Hem Onc [address] [address] Anemia due to stage 4 [...] be different from the original. Good connectivity [facility] for wound care [phone] Televideo if needed. 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 Patient tolerated injection and will return in 1 week. Patient will need called to confirm he is to come next week not every 2weeks. documented in this encounter Plan of Treatment Upcoming Encounters Date Type Department Care Team (Late st Contact Info) Description 01/01/2024 10:30 AM EST Laboratory Laboratory [facility] KayleyBroussard [address] [place] [phone] Presley Zaldivar [facility] [address] [place] [address] 01/01/2024 11:00 AM EST Immunization/Injection Hematology/Oncology Treatment, [place] [address] [facility] [place] [address] Kayley, Chair 7 Hem Onc [place] [address] [place] [address] 01/02/2024 6:30 AM EST Anticoagulation Centralized Clinical Pharmacy Services, Ilya Lafleur [address] [place] [address] [place] [address] [place] [address] 01/15/2024 1:10 PM EST Laboratory Laboratory [facility] Gallo Zaldivar [address] [place] [phone] Kayley Lab [place] [address] [place] [address] 01/15/2024 1:30 PM EST Office Visit Hematology/Oncology [facility] Gallo Zaldivar [address] [place] [phone] Monse Coates MD [address] [place] [place] [address] 01/15/2024 2:00 PM EST Immunization/Injection Hematology/Oncology Treatment, [place] [address] [facility] [place] [phone] [place], Chair 7 Hem Onc [facility] 200 [facility] [place] [address] 01/19/2024 9:00 AM EST Office Visit Gastroenterology [address] [place] [address] Moon Avila CRNP [address] [place] [address] 02/20/2024 12:30 PM EST Nurse Only Ancillary [address] [place] [address] [place], Nurse Annual [address] [place] [address] 03/08/2024 2:30 PM EST Office Visit Family Medicine [address] [place] [phone] [address] [place] [address] 04/16/2024 3:00 PM EST Office Visit Nephrology [address] [place] [address] Jennifer Agustin MD 200 [facility] [place] [address] Scheduled Procedures Name Priority Associated Diagnoses Date/Ti [...] encounter Medical Devices Implanted Type Area Marketing Coordinator Device Identifier Shelf Expiration Date Model / Serial / Lot Shaft Fibula 6cm [id number] - [id number] Implanted:Qty: 1 [place] 09/05/[place] [facility] [place] - Human N/A: Spine Cervical MUSCULOSKELETAL TRANSPLANT FND 04/20/2010 [id number] / [id number] 0P / Stent Eso Gw 22x70 [id number] - [id number] Implanted:Qty: 1 on 01/21/2008 [place] [facility] N/A: Esophagus [employer] 04/12/2009 [address] / / [id number] Depuy Uniplate 32 Implanted:Qty: 1 on 09/05/2008 [facility] [place]: Neck 1773-06-146 / 1773-06-146 / Plate Zach 3 Level Ti 54mm - [id number] Implanted:Qty: 1 on 05/07/2010 [place] [facility]A: Neck JNJ : DEPUY SPINE [id number] / / Screw Zach Const St Ti 14mm - [id number] Implanted:Qty: 4 on 05/07/2010 [place] [facility] [place]/A: Neck JNJ : DEPUY SPINE [id number] / / Screw 3.5x14 Mntr Fa [id number] - [id number] Implanted:Qty: 8 on 05/07/2010 [place] [facility] [place]A: Spine Cervical JNJ : ETH[employer]ON C[employer]IOVATIONS [id number] / / Jarrell [id number] - [id number] Implanted:Qty: 1 on 05/07/2010 [place] [facility] [place]: Spine Cervical JNJ : ETH[employer]ON [employer]ATIONS [id number] / / Screw Inner Mntr [id number] - [id number] Implanted:Qty: 8 on 05/07/2010 [place] [facility] [place]A: Spine Cervical JNJ : ETH[employer]ON CARDI[employer]ATIONS [id number] / / Envista Intraocular Lens Implanted:Qty: 1 on 03/10/2022 by Liang Marshall MD at [place] [facility] Right: Eye BAUSCH & LOMB 08/13/2023 [id number] / [id number] / [id number] Envista Intraocular Lens Implanted:Qty: 1 on 03/24/2022 by Liang Marshall MD at OR [facility] Left: Eye BAUSCH & LOMB 07/13/2024 [id number] / [id number] / [id number] documented as of this encounter Visit Diagnoses [...] Date Dose Rate Site Epoetin Sam-epbx (Retacrit) 19071 UNIT/ML inj 20,000 Units 20,000 Units, Subcutaneous, ONCE, On 12/04/23 at 1230, For 1 dose, If hgb <11.0Indications:Anemi a due to stage 4 chronic kidney disease (HCC),Iron deficiency anemia due to chronic blood loss Given 12/04/2023 11:47 AM EDT 20,000 Units Arm Right Upper documented in this encounter Advance Directives Documents on File Type Date Recorded Patient College Counselor Expl anation POLST 01/26/2021 [place] [facility] [...] Power of Attor andrew? No Care Teams Shovel Operator Relationship Specialty Start Date End Date Jocelyne Desai DO [address] [place] [address] [place] [address] PCP - General Internal Medicine 11/09/16 documented as of this encounter
--- OUTSIDE RECORDS SUMMARY | 2024-01-29 17:47 | External Medical Summary | Summary of Care ---
Author Name Unknown Organization [facility] Address [address] [facility] [place] [address] Phone [phone] Care Team Providers Care Credit Control Clerk Name Role Phone Jocelyne Desai Primary Care Provider [phone] Reason for Visit * Reason Comments Follow Up Return 2 week follow up Encounter Details Date Type Department Care Team (Late st Contact Info) Description 12/18/2023 1:00 PM EST Office Visit Hematology/Oncology [facility] [place] [address] [facility] [address] Monse Coates MD [address] [facility] [place] [address] 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)*; Iron deficiency anemia due to chronic blood loss; Thrombocytopenia, congenital and hereditary (HCC) Allergies No known active allergiesdocumented as [...] stage IV (GFR 15-29 ml/min) ([facility]) Take 1 Tablet by mouth in the morning and 1 Tablet before bedtime. 120 Tablet 3 4 Active documented as of this encounter (statuses as of 12/26/2023) Active Problems Patient Care Coordination No te Formatting of this note migh t be different from the original. Good connectivity [facility] [address] for wound care [phone] Televideo if needed. Problem Noted Date Diagnosed [...] rule out osteomyelitis--he will go to [facility] for xray. Non-pressure chronic ulcer o f [...] ICD-10 update of inactive term PLATT RESEARCH OTHER*[id number] 02/20/2007 SPINAL STENOSIS-LUMBAR 09/23/2002 Vitamin D deficiency Cervical spinal stenosis documented as of this encounter (statuses as of 12/26/2023) Resolved Problems Problem Noted Date Diagnosed Date Resolved Date Chronic kidney disease (CKD) , stage IV (severe) 09/27/2023 10/26/2023 Depression, unspecified 11/09/2021 03/2 Depression, unspecified 11/09/202105/2022 [...] 11/17/19 23 LUMBAGO 12/24/2002 05/09/2007 LOC PRIM [id number] 12/24/200208/13 DEGENERATIVE SKIN DISORD 12/24/2002 VERTEBRAL FX [...] file Not on file 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 Not on file Not on file documented as of this encounter Last Filed Vital Signs Vital Sign Reading Time Taken Comments Blood Pressure 134/84 12/18/2023 1:13 PM EST Pulse 99 12/18/2023 1:13 PM EST Temperature 36.4 C (97.5 F) 12/18/2023 1:13 PM ES T Respiratory Rate - - Oxygen Saturation 98% 12/18/2023 1:13 PM EST Inhaled Oxygen Concentration - - Weight 97.1 kg (214 lb) 12/18/2023 1:13 PM EST Height - - Body Mass Index 29.85 11/06/2023 1:54 PM EDT documented in this encounter Progress Notes * Monse Coates MD - 12/18/2023 1:17 PM EST Date of visit: 12/18/2023 Chief Complaint Patient presents with Follow Up Return 2 week follow up HPI: Lg Cooley is a 73 year old maleDate of visit: 12/04/2023 Chief Complaint Patient presents with Follow Up Treatment HPI: Lg Cooley is a 73 year old male follow up re anemia with CKD Subjective Lg Cooley is a 73 year old male, presents for follow up on 11/20/2023. Chief Complaint Patient presents with Follow Up 2 week follow up HPI: Lg Cooley is a 73 year old male presents for follow up regarding anemia with CKD creatinine 4.3 on 11/01/2023 . He has a history of iron-deficiency. His last follow up appointment 12/04/2023 when he had received 20,000 of Retacrit. 11/20/2023: Retacrit 60158 units given 11/06/2023: Hematology-Oncology consultation for further evaluation of anemia. His labs performed on 11/01/2023 showed: Hemoglobin 8.7 grams/deciliter, hematocrit 28%, MCV 93.6 (within normal limits), RDW 19% (higher than the normal range of 11.5-15.5%) and retic count 1.2%. WBC and platelet [...] the most recent PTH level 361on 11/01/2023. Patient diagnosed with anemia due to stage 4 chronic kidney disease, in conjunction with iron-deficiency anemia due to chronic blood loss and history of gastric bypass therefore not able to tolerate oral iron therapy. The patient was recommended to start intravenous iron therapy to maintain TSAT> 30% and CHARLES (erythropoietin support) Intravenous iron therapy with IV Monoferric 1,000 mg was given on 11/06/2023. The patient presents today to start PROCRIT/ RETACRIT treatment on 11/20/2023. ASSESSMENT/PLAN: Anemia CKD Stat CBC today Return from Lab to get the retacrit injection today 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) (Primary) - ALTERATION OF TREATMENT PLAN - ALTERATION OF TREATMENT PLAN PLAN OF CARE DISCUSSED WITH PATIENT ON 12/04/2023 : Increase Retacrit dose to 20,000Units today Follow-up: Return in about 2 weeks (around 12/18/2023). Return in 2 weeks with labs same day for retacrit Labs performed on 12/18/2023 shows CBC with hemoglobin 9.7 grams/deciliter hematocrit 31.9% MCV 93 RDW 17.7% WBC 3.79 with ANC 2.29 platelet count [id number] HGB Latest Ref Rng 14.0 - 16.8 g/dL 10/20/2023 6.4 ! (E) 11/01/2023 8.7 (L) 11/13/2023 7.8 ! (E) 11/20/2023 8.5 (L) 11/27/2023 8.7 (L) 12/04/2023 9.0 (L) 12/18/2023 9.7 (L) Legend: ! Abnormal (L) Low (E) External lab result PMH: Patient Active Problem List Diagnosis SPINAL STENOSIS-LUMBAR Vitamin D deficiency Cervical spinal stenosis Type 2 diabetes mellitus with hemoglobin A1c goal of less than 7.5% ([facility]) HTN, goal below 140/90 DYSLIPIDEMIA, GOAL LDL BELOW 100 SHERMAN RESEARCH OTHER*[id number] Erectile dysfunction DM neuropathy, type II diabetes mellitus ([facility]) Paroxysmal SVT (supraventricular tachycardia) ([facility]) Cardiac pacemaker in situ Venous insufficiency of both lower extremities Microalbuminuric diabetic nephropathy ([facility]) Chronic atrial fibrillation ([facility]) Peripheral sensory neuropathy Vitamin B12 deficiency Cerebrovascular disease, arteriosclerotic, 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 ([facility]) Type 2 diabetes, controlled, with peripheral neuropathy ([facility]) Type 2 diabetes mellitus with peripheral vascular disease ([facility]) Persistent proteinuria H/O gastric bypass 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 current use of 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 Complex sleep apnea syndrome Nocturnal hypoxemia Type 2 diabetes mellitus with stage 3b chronic kidney disease, without long-term current use of insulin ([facility]) Sleep apnea treated with nocturnal BiPAP Hyperparathyroidism, secondary renal (HCC) Diabetes mellitus due to underlying condition with severe nonproliferative diabetic retinopathy with macular edema, unspecified eye (HCC) 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 kidney disease (HCC) Esophageal obstruction S/P angioplasty with stent 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, without long-term current use of insulin (HCC) Chronic kidney disease, stage 3b (HCC) Non-pressure chronic ulcer of other part of right foot with unspecified severity (HCC) Acquired absence of right great toe (HCC) 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, with fat layer exposed (HCC) History of [place] (myocardial infarction) Trigger ring finger of left hand Full code status Calculus of gallbladder without cholecystitis without obstruction Stasis ulcer ([facility]) MRSA (methicillin resistant Staphylococcus aureus) Orthostatic hypotension Pressure injury of buttock, stage 2 (HCC) Atrial fibrillation (HCC) SVT (supraventricular tachycardia) ([facility]) Anemia due to stage 4 chronic kidney disease ([facility]) Iron deficiency anemia due to chronic blood loss Current Outpatient Medications Medication Sig Dispense Refill [...] Tablets in the evening. 360 Tablet 3 Potassium Chloride Candi ER 20 MEQ Oral Tablet Extended Release Take 1 Tablet by mouth in the morning and 1 Tablet before bedtime. 120 Tablet 3 No current facility-administered medications for this visit. Review of patient's allergies indicates: No Known Allergies Objective BP 134/84 (BP Site: Left Arm, BP Position: Sitting, BP Cuff Size: Regular) | Pulse 99 | Temp 36.4 C (97.5 F) (Tympanic) | Wt 97.1 kg (214 lb) | SpO2 98% | BMI 29.85 kg/m | BSA 2.21 m ASSESSMENT/PLAN: 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) (Primary) Iron deficiency anemia due to chronic blood loss Thrombocytopenia, congenital and hereditary (HCC) Follow-up: Return in about 4 weeks (around 01/15/2024). | Check-out note: Retacrit 20,000 units today on 12/18/2023, hgb 9.7 Return next wek on 12/25/2023 for IV IRON - no labs needed Retacrit 20K units on 01/01/2024 with labs prior to the visit Retacrit 20K units on 01/15/2024 with labs prior to the visit Retacrit 20K units on 01/29/2024 with labs prior to the visit Monse Coates MD documented in this encounter Nursing Notes * Estefania Henderson, GUM MACHINE FILLER - 12/18/2023 1:14 PM EST Patient identifed by name and [...] it for you? ALREADY ACTIVE Filed Vitals: 12/18/23 1313 BP: 134/84 Pulse: 99 Temp: 36.4 C (97.5 F) TempSrc: Tympanic SpO2: 98% Weight: 97.1 kg (214 lb) Patient was instructed to not get up [...] Description 01/01/2024 10:30 AM EST Laboratory Laboratory [facility] [place] [address] [place] [address] Kayley [address] [place] [address] 01/01/2024 11:00 AM EST Immunization/Injection Hematology/Oncology Treatment, [place] [address] [place] [address] Kayley, Chair 7 Hem Onc [facility] [address] [place] [address] 01/02/2024 6:30 AM EST Anticoagulation Central[facility], Ilya Lafleur [address] [place] [address] [place] [address] [place] [address] 01/15/2024 1:10 PM EST Laboratory Laboratory [facility] Gallo Zaldivar [address] [place] [address] Kayley, Lab [address] [place] [address] [address] 01/15/2024 1:30 PM EST Office Visit Hematology/Oncology [facility] Gallo Zaldivar [address] [place] [phone] Monse Coates MD [address] [place] [phone] 01/15/2024 2:00 PM EST Immunization/Injection [facility]ematology[facility]cology [facility], [place] [facility] [phone] Park, Chair 7 Hem Onc [facility] 200 [facility] [place] [address] 01/19/2024 9:00 AM EST Office Visit Gastroenterology [address] [place] [address] Moon Avila CRNP [address] [place] [address] 02/20/2024 12:30 PM EST Nurse Only Ancillary [address] [place] [address] [place], Nurse Annual [address] [place] [address] 03/08/2024 2:30 PM EST Office Visit Family Medicine [address] [place] [phone] Jocelyne Desai[address] [place] [address] 04/16/2024 3:00 PM EST Office Visit Nephrology [address] [place] [address] Jennifer Agustin MD 200 [facility] [place] [address] Scheduled Procedures Name Priority Associated Diagnoses Date/Ti [...] this encounter Medical Devices Implanted Type Area Radio Repairer Domestic Device Identifier Shelf Expiration Date Model / Serial / Lot Shaft Fibula 6cm [id number] - [id number] Implanted:Qty: 1 on 09/05/[address] [facility] [place] - Human N/A: Spine Cervical MUSCULOSKELETAL TRANSPLANT FND 04/20/2010 [id number] / [id number] / Stent Eso Gw 22x70 [id number] - [id number] Implanted:Qty: 1 on 01/21/[address] [facility] N/A: Esophagus [employer] 04/12/2009 [id number] / / [id number] Depuy Uniplate 32 Implanted:Qty: 1 on 09/05/2008 [...] Plate Zach 3 Level Ti 54mm - [id number] Implanted:Qty: 1 on 05/07/[address] [facility] N/A: Neck JNJ : DEPUY SPINE [id number] / / Screw Zach Const St Ti 14mm - [id number] Implanted:Qty: 4 on 05/07/[address] [facility] N/A: Neck JNJ : DEPUY SPINE [id number] / / Screw 3.5x14 Mntr Fa [id number] - [id number] Implanted:Qty: 8 on 05/07/[address] [facility] [place]/A: Spine Cervical JNJ : ETHICON CARDIOVATIONS [id number] / / Jarrell [id number] - [id number] Implanted:Qty: 1 on 05/07/[address] [facility] N/A: Spine Cervical JNJ : ETHICON CARDIOVATIONS [id number] / / Screw Inner Mntr [id number] - [id number] Implanted:Qty: 8 on 05/07/[address] [facility] N/A: Spine Cervical JNJ : ETHICON CARD[employer]ATIONS [id number] / / Envista Intraocular Lens Implanted:Qty: 1 on 03/10/2022 by Liang Marshall MD at [facility] Right: Eye BAUSCH [employer] LOMB 08/13/2023 [id number] / [id number] / [id number] Envista Intraocular Lens Implanted:Qty: 1 on 03/24/2022 by Liang Marshall MD at [facility] Left: Eye BAUSCH & LOMB 07/13/2024 [id number] / [id number] / [id number] documented as of this encounter Visit Diagnoses [...] deficiency anemia secondary to blood loss (chronic) Thrombocytopenia, congenital and hereditary (HCC) Congenital and hereditary thrombocytopenic purpura documented in this encounter Advance Directives Documents on File Type Date Recorded Patient Clinical Biostatistics Director Expl anation POL 01/26/2021 [place] OR [facility] FOR [...] Power of Attor andrew? No Care Teams Credit Control Clerk Relationship Specialty Start Date End Date Jocelyne Desai DO [address] [place] [address] [place] [address] PCP - General Internal Medicine 11/09/16 documented as of this encounter"
--- OUTSIDE RECORDS SUMMARY | 2024-01-29 17:47 | External Medical Summary | Summary of Care ---
Author Name Unknown Organization [facility] Address [address] [facility] [place] [address] Phone [phone] Care Team Providers Care Casting Director Name Role Phone Jocelyne Desai Primary Care Provider Reason for Visit * Reason Onset Date Comments Follow Up 12/20/2023 Encounter Details Date Type Department Care Team (Late st Contact Info) Description 12/20/2023 Telephone NephrologyCely [address] [place] [address] Jennifer Agustin MD 200 [facility] [place] [address] Follow Up Allergies No known active allergiesdocumented [...] stage IV (GFR 15-29 ml/min) ([facility]) Take 1 Tablet by mouth in the morning and 1 Tablet before bedtime. 120 Tablet 3 4 Active documented as of this encounter (statuses as of 12/25/2023) Active Problems Patient Care Coordination No te Formatting of this note migh t be different from the original. Good connectivity [facility] for wound care [phone] Televideo if needed. Problem Noted Date Diagnosed [...] up with podiatry,. Letter in chart from [facility] podiatry they were unable to [...] H/O gastric bypass 11/27/2018 Overview (11/27/2018): RYGB retirement current use of 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 [...] ICD-10 update of inactive term PLATT RESEARCH OTHER*[id number] 02/20/2007 SPINAL STENOSIS-LUMBAR 09/23/2002 Vitamin D deficiency [...] office early next week will need [facility] provider recheck Multiple and open wound [...] 11/17/19 23 LUMBAGO 12/24/2002 05/09/2007 LOC PRIM [id number] 12/24/200208/13 DEGENERATIVE SKIN DISORD 12/24/2002 VERTEBRAL FX [...] CG/0.3 mL, 12 YRS AND ABOVE, IM ([employer]-Comirnaty) 11/16/2022 Covid-19, Mrna, Lnp-s, Pf, B ivalent, [...] file Not on file Not on file 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 Please give her a call at [phone] Thank you * Telephone Encounter - Libby Hurd RN - 12/20/2023 9:49 AM EST TE with Stormy at [facility] regarding PD eval for this [...] Description 01/01/2024 10:30 AM EST Laboratory Laboratory [facility] [place] [address] [place] [phone] [place], Lab [facility] 200 [facility] [place], [place] [address] 01/01/2024 11:00 AM EST Immunization/Injection Hematology/Oncology Treatment, [place] [address] [place], [place] [phone] Kayley, Chair 7 Hem Onc [address] [place], [place] [address] 01/02/2024 6:30 AM EST Anticoagulation Centralized Clinical Pharmacy Services, Ilya Lafleur [address] [place] [address] [place] [address] [place] [address] 01/15/2024 1:10 PM EST Laboratory Laboratory [facility] [place] [address] [place] [phone] Kayley, Lab [address]en[address] [place] [address] 01/15/2024 1:30 PM EST Office Visit Hematology/Oncology [facility] [address] [place] [phone] Monse Coates MD [address] [place] [address] [place] [phone] 01/15/2024 2:00 PM EST Immunization/Injection Hematology/Oncology Treatment, [place] [address] [place] [phone] Kayley, Chair 7 Hem Onc [address] [place] [address] 01/19/2024 9:00 AM EST Office Visit Gastroenterology [address] [place] [address] Moon Avila CRNP [address] [place] [address] 02/20/2024 12:30 PM EST Nurse Only Ancillary [address] [place] [address] [place], Nurse [address] [place] [address] 03/08/2024 2:30 PM EST Office Visit Family Medicine [address] [place] [phone] Jocelyne Desai, [address] [place] [address] 04/16/2024 3:00 PM EST Office Visit Nephrology [address] [place] [address] Jennifer Agustin MD [address] [place] [address] Scheduled Procedures Name Priority Associated Diagnoses Date/Ti [...] 08/23/2023, 1005/2022, 11/09/2022, Additional history exists GFR 06/03/2024 12/04/2023, [...] this encounter Medical Devices Implanted Type Area Shipping Inspector Device Identifier Shelf Expiration Date Model / Serial / Lot Shaft Fibula 6cm [id number] - [id number] Implanted:Qty: 1 on 09/05/2008 [place] [facility] [place] - Human N/A: Spine Cervical MUSCULOSKELETAL TRANSPLANT FND 04/20/2010 [id number] / [id number] 0P / Stent Eso Gw 22x70 [id number] - [id number] Implanted:Qty: 1 on 01/21/2008 at [place] [facility] N/A: Esophagus [employer] 04/12/2009 [id number] / / [id number] Depuy Uniplate 32 Implanted:Qty: 1 on 09/05/2008 [...] Plate Zach 3 Level Ti 54mm - [id number] Implanted:Qty: 1 on 05/07/2010 at [place] [facility] [place]/A: Neck JNJ : DEPUY SPINE [id number] / / Screw Zach Const St Ti 14mm - [id number] Implanted:Qty: 4 on 05/07/2010 [place] [facility]/A: Neck JNJ : DEPUY SPINE [id number] / / Screw 3.5x14 Mntr Fa [id number] - [id number] Implanted:Qty: 8 on 05/07/2010 [place] [facility] [place]A: Spine Cervical JNJ : ETHICON CARDIOVATIONS [id number] / / Jarrell [id number] - [id number] Implanted:Qty: 1 on 05/07/2010 at [place] [facility]/A: Spine Cervical JNJ : ETHICON CARDIOVATIONS [id number] / / Screw Inner Mntr [id number] - [id number] Implanted:Qty: 8 on 05/07/2010 at [place] [facility]/A: Spine Cervical JNJ : ETHICON CARDIOVATIONS [id number] / / Envista Intraocular Lens Implanted:Qty: 1 on 03/10/2022 by Liang Marshall MD at OR [facility] Right: Eye BAUSCH & LOMB 08/13/2023 [id number] / [id number] / [id number] [employer]ista Intraocular Lens Implanted:Qty: 1 on 03/24/2022 by Liang Marshall MD at OR [facility] Left: Eye BAUSCH & LOMB 07/13/2024 [id number] / [id number] / [id number] documented as of this encounter Advance Directives Documents on File Type Date Recorded Patient End Finder Forming Department Expl anation POL 01/26/2021 [place] OR [facility]AINING TREATMENT * No [...] Power of Attor andrew? No Care Teams Casting Director Relationship Specialty Start Date End Date Jocelyne Desai DO [address] [place] [address] [place] [phone] PCP - General Internal Medicine 11/09/16 documented as of this encounter
--- OUTSIDE RECORDS SUMMARY | 2024-01-29 17:47 | External Medical Summary | Summary of Care ---
Author Name Unknown Organization [facility] Address [address] [facility] [address] Phone [phone] Care Team Providers Care Fish Net Maker Name Role Phone Jocelyne Desai Primary Care Provider Reason for Visit * Reason Onset Date Comments Follow Up 12/20/2023 Encounter Details Date Type Department Care Team (Late st Contact Info) Description 12/20/2023 Telephone NephrologyCely [address] [place] [address] Jennifer Agustin MD 200 [facility] [place] [address] Follow Up Allergies No known active allergiesdocumented [...] [facility] [phone] Televideo if needed. 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 Not on file Not on file documented as of this encounter Miscellaneous Notes * Telephone Encounter - Marisela Peraza LPN - 12/26/2023 1:08 PM EST Anabelle from [facility] called back asking to speak to Libby Advised she is out of office today Anabelle states she has spoke with her operations supervisor chemical cleaning They could have pt get labs drawn Then give him the Procrit on Fridays till he can be taught to get it to himself Please contact Anabelle with any additional questions [phone] * Telephone Encounter - Libby Hurd RN - 12/25/2023 10:22 AM EST TE with Anabelle from Home Health regarding a time change for visit with Stormy from [facility]. Message sent to Stormy. Discussion also started regarding home procrit injections vs coming in to clinic. Anabelle is going todiscuss this with her manager mail and pt also states that he would be willing to do injection at home. * Telephone Encounter - Kalie Cooley OSA - 12/25/2023 10:11 AM EST Good morning, Anabelle, pt's home health nurse on the line, wanting to know where the dialysis information was sent,the pt needs to reschedule his appointment. Please give her a call at [phone] Thank you * Telephone Encounter - Libby Hurd RN - 12/20/2023 9:49 AM EST TE with Stormy at [facility] regarding PD eval for this [...] Description 01/01/2024 10:30 AM EST Laboratory Laboratory [facility] [place] [address] [place] [phone] Kayley, Lab [facility] 200 [facility] [place] [address] 01/01/2024 11:00 AM EST Immunization/Injection Hematology/[address]cology Treatment, [address] [phone] Kayley, Chair 7 Hem On[address] [place] [address] 01/02/2024 6:30 AM EST Anticoagulation Centralized Clinical Pharmacy Services, Ilya Lafleur [address] [place] [address] [place] [address] Ccps, [address] [place] [address] 01/15/2024 1:10 PM EST Laboratory Laboratory [facility] [place] 200 [facility] [place] [phone] Kayley, Lab [facility] 200 [facility] [place] [address] 01/15/2024 1:30 PM EST Office Visit Hematology/Oncology [facility] [place] 200 [facility] [place] [phone] Monse Coates MD [address] [place] [address] [place] [address] 01/15/2024 2:00 PM EST Immunization/Injection Hematology/Oncology Treatment, [place] [address] [facility] [place] [address] Kayley, Chair 7 Hem Onc Scenery [address] [place] [address] 01/19/2024 9:00 AM EST Office Visit Gastroenterology [address] [place] [address] Moon Avila, CERTIFIED BREASTFEEDING EDUCATOR [address] [place] [address] 02/20/2024 12:30 PM EST Nurse Only Ancillary [address] [place] [address] [place], Nurse [address] [place] [address] 03/08/2024 2:30 PM EST Office Visit Family Medicine [address] [place] [phone] Jocelyne Desai, [address] [place] [address] 04/16/2024 3:00 PM EST Office Visit Nephrology [address] [place] [address] Jennifer Agustin MD [address] [place] [address] Scheduled Procedures Name Priority Associated Diagnoses Date/Ti [...] 100 05/2022, 11/09/2022, Additional history exists GFR 06/03/2024 [...] this encounter Medical Devices Implanted Type Area Crawler Tractor Operator Device Identifier Shelf Expiration Date Model / Serial / Lot Shaft Fibula 6cm [id number] - [id number] [place]ed:[place] [facility] [place] Human N/A: Spine Cervical MUSCULOSKELETAL TRANSPLANT FND 04/20/2010 [id number] / [id number] 0P / Stent Eso Gw 22x70 [id number] - [id number] Implanted:Qty: 1 on 01/21/2008 [place] [facility] [place]/A: Esophagus ALVEOLUS INC 04/12/2009 67510-474 / / [id number] Depuy Uniplate 32 Implanted:Qty: 1 on 09/05/2008 [place] [facility] [place]A: Spine Cervical TAMMY & TAMMY DEPUY 1896-03-302 / / Depuy Uniplate Screw 14mm Implanted:Qty: 2 on 09/05/2008 [place] [facility] [place]A: Spine Cervical TAMMY & TAMMY DEPUY 189--017 / / Depuy Lordotic Bengal Cage Implanted:Qty: 1 on 05/07/2010 [place] [facility] [place]/A: Neck 1773--146 / [id number] / Plate Zach 3 Level Ti 54mm - [id number] Implanted:Qty: 1 on 05/07/2010 [place] [facility] [place]A: Neck JNJ : DEPUY SPINE [id number] / / Screw Zach Const St Ti 14mm - [id number] Implanted:Qty: 4 on 05/07/2010 [place] [facility] [place]A: Neck JNJ : DEPUY SPINE [id number] 14 / / Screw 3.5x14 Mntr Fa [id number] - [id number] Implanted:Qty: 8 on 05/07/2010 [place] [facility] [place]A: Spine Cervical JNJ : ETHICON CARDIOVATIONS [id number] / / Jarrell [id number] - [id number] Implanted:Qty: 1 on 05/07/2010 [place] [facility] [place]A: Spine Cervical JNJ : ETHICON CARDIOVATIONS [id number] / / Screw Inner Mntr [id number] - [id number] Implanted:Qty: 8 on 05/07/2010 [place] [facility] [place]A: Spine Cervical JNJ : ETHICON CARDIOVATIONS [id number] / / Envista Intraocular Lens Implanted:Qty: 1 on 03/10/2022 by Liang Marshall MD at OR [facility] Right: Eye BAUSCH & LOMB 08/13/2023 [id number] / [id number] / [id number] Envista Intraocular Lens Implanted:Qty: 1 on 03/24/2022 by Liang Marshall MD at OR [facility] Left: Eye BAUSCH & LOMB 07/13/2024 [id number] / [id number] / [id number] documented as of this encounter Advance Directives Documents on File Type Date Recorded 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 No Care Teams Fish Net Maker Relationship Specialty Start Date End Date Jocelyne Desai DO [address] [place] [address] [place] [address] PCP - General Internal Medicine 11/09/16 documented as of this encounter
--- OUTSIDE RECORDS SUMMARY | 2024-01-29 17:48 | External Medical Summary | Summary of Care ---
Author Name Unknown Organization [facility] Address [address] [facility] [address] Phone [phone] Care Team Providers Care Hat Mender Name Role Phone Desai Jocelyne Cunninghambritany ASHTON Primary Care Provider + [phone] Reason for Visit * Reason Comments Medication Administration Retacrit * Episode Based Medications (Routine) - Authorized Specialty Diagnoses / Procedures Referred By Contac t Referred To Contact Diagnoses 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) Iron deficiency anemia due to chronic blood loss Procedures WI INJ RETACRIT NON-ESRD USE Monse Coates MD 400 [facility] [place] [address] Anc Hem/Onc [address] [address] Referral ID Status Reason Start Date Expiration Date V isits Requested Visits Authorized [id number] Authorized 11/13/2023 11/12/2024 999 999 Encounter Details Date Type Department Care Team (Late st Contact Info) Description 12/18/2023 1:30 PM EST Immunization/I njection Hematology/Oncology Treatment, [address] [phone] Kayley, Chair 7 Hem On[address] [address] 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)*; Iron deficiency anemia due to chronic blood loss Allergies No known active allergiesdocumented as of this encounter (statuses as of 12/18/2023) Medications Medication Sig Dispensed Refills Start Date [...] disease, chronic, stage IV (GFR 15-29 ml/min) ([facility]) Take 1 Tablet by mouth in the morning and 1 Tablet before bedtime. 120 Tablet 3 11/30/2023 Active documented as of this encounter (statuses as of 12/18/2023) Active Problems Patient Care Coordination No te Formatting of this note migh t be different from the original. Good connectivity [facility] for wound care [phone] Televideo if needed. Problem Noted Date Diagnosed [...] up with podiatry,. Letter in chart from [facility] podiatry they were unable to [...] ICD-10 update of inactive term PLATT RESEARCH OTHER*[id number] 02/20/2007 ADVANCE DIRECTIVE INFORMATION 01/19/2005 Overview: Yes, Patient instructed to provide copy of advance directive for provider to review and to be scanned into Electronic Medical Record No, Advance Directive brochure given to patient at prior appointment. SPINAL STENOSIS-LUMBAR 09/23/2002 Vitamin D deficiency Cervical spinal stenosis documented as of this encounter (statuses as of 12/18/2023) Resolved Problems Problem Noted Date Diagnosed Date [...] 11/17/19 23 LUMBAGO 12/24/2002 05/09/2007 LOC PRIM [id number] 12/24/200208/13 DEGENERATIVE SKIN DISORD 12/24/2002 VERTEBRAL FX [...] as of this encounter (statuses as of 12/18/2023) Immunizations Name Administration Dates Next Due COVID-19 mRNA, LNP-s, No Pre serve, 2-Dose Series (Moderna) 03/19/2020 COVID-19 mRNA, LNP-s, No Pre serve, 2-Dose Series (Pfizer) 02/16/2021,04/09/2020,03/19/2020 COVID-19, MRNA-LNP, PF, 30 M CG/0.3 mL, 12 YRS AND ABOVE, IM ([employer]) 11/16/2022 Covid-19, Mrna, Lnp-s, Pf, B ivalent, [...] Care Team (Late st Contact Info) Description 12/19/2023 6:15 AM EST Anticoagulation Centralized Clinical Pharmacy Services, Ilya Lafleur [address] [place] [address] [place] [address] Ccps, [address] [place] [address] 01/01/2024 10:30 AM EST Laboratory Laboratory [facility] Kayley [place] 200 [facility] [place] [phone] Kayley, Lab Scen[address] [place] [address] 01/01/2024 11:00 AM EST Immunization/Injection Hematology/Oncology Treatment, [place] [address] [place] [phone] Kayley, Chair 7 Hem Onc [facility] [address] [place] [address] 01/15/2024 1:10 PM EST Laboratory Laboratory [facility] Kayley [place] [place] [address] [place] [phone] Kayley Lab Scenery 200 [facility] [place] [address] 01/15/2024 1:30 PM EST Office Visit Hematology/Oncology Scenery [facility] [address] [place] [phone] Monse Coates MD [address] [place] [address] [place] [phone] 01/15/2024 2:00 PM EST Immunization/Injection Hematology/Oncology Treatment, [place] 200 [facility] [place] [address] Kayley, Chair 7 Hem Onc Scene 200 [facility] [place] [address] 01/19/2024 9:00 AM EST Office Visit Gastroenterology [address] [place] [address] Moon Avila CRNP [address] [place] [address] 02/20/2024 12:30 PM EST Nurse Only Ancillary [address] [place] [address] [place], Nurse [address] [place] [address] 03/08/2024 2:30 PM EST Office Visit Family Medicine [address] [place] [phone] [address] [place] [address] 04/16/2024 3:00 PM EST Office Visit Nephrology [address] [place] [address] Jennifer Agustin MD [address] [place] [address] Scheduled Procedures Name Priority Associated Diagnoses Date/Ti [...] this encounter Medical Devices Implanted Type Area Comb Fixer Device Identifier Shelf Expiration Date Model / Serial / Lot Shaft Fibula 6cm [id number] - [id number] Implanted:Qty: 1 on 09/05/2008 at [place] [facility] [place] Tissue - Human N/A: Spine Cervical MUSCULOSKELETAL TRANSPLANT FND 04/20/2010 [id number] / [id number] 0P / Stent Eso Gw 22x70 31707-501 - [id number] Implanted:Qty: 1 on 01/21/2008 at [place] [facility] [place] N/A: Esophagus ALVEOLUS INC 04/12/2009 52346-426 / / [id number] Depuy Uniplate 32 Implanted:Qty: 1 on 09/05/2008 [facility] [place] N/A: Neck 1773-06-146 / 1773-06-146 / Plate Zach 3 Level Ti 54mm - [id number] Implanted:Qty: 1 on 05/07/2010 at [place] [facility] [place] N/A: Neck JNJ : DEPUY SPINE [id number] 54 / / Screw Zach Const St Ti 14mm - [id number] Implanted:Qty: 4 on 05/07/2010 at [place] [facility] [place] N/A: Neck JNJ : DEPUY SPINE [id number] 14 / / Screw 3.5x14 Mntr Fa [id number] - [id number] Implanted:Qty: 8 on 05/07/2010 at [place] [facility] [place] N/A: Spine Cervical JNJ : ETH[employer]ON CARD[employer]OVATIONS [id number] / / Jarrell [id number] - [id number] Implanted:Qty: 1 on 05/07/2010 at [place] [facility] [place] N/A: Spine Cervical JNJ : [employer]ON C[employer]ATIONS [id number] / / Screw Inner Mntr [id number] - [id number] Implanted:Qty: 8 on 05/07/2010 at [place] [facility] [place] N/A: Spine Cervical JNJ : ETH[employer]ON CARDIOVATIONS [id number] / / Envista Intraocular Lens Implanted:Qty: 1 on 03/10/2022 by Liang Marshall MD at [place] [facility] Right: Eye BAUSCH & LOMB 08/13/2023 [id number] / [id number] / [id number] Envista Intraocular Lens Implanted:Qty: 1 on 03/24/2022 by Liang Marshall MD at OR [facility] Left: Eye BAUSCH & LOMB 07/13/2024 [id number] / [id number] / [id number] documented as of this encounter Visit Diagnoses Diagnosis 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)- Primary Iron deficiency anemia due to chronic blood loss Iron deficiency anemia secondary to blood loss (chronic) documented in this encounter Administered Medications Inactive Administered Medications - up to 3 most recent administrations Medication Order MAR Action Action Date Dose Rate Site Epoetin Sam-epbx (Retacrit) 60238 UNIT/ML inj 20,000 Units 20,000 Units, Subcutaneous, ONCE, On 12/18/23 at 1400, For 1 dose, If hgb <11.0 Given 12/18/2023 1:53 PM EST 20,000 Units Arm Right Upper documented in this encounter Advance Directives Documents on File Type Date Recorded Patient Gear Cutter Expl anation POLST 01/26/2021 [place] OR [facility] [...] Power of Attor andrew? No Care Teams Hat Mender Relationship Specialty Start Date End Date Jocelyne Desai DO [address] [place] [address] [place] [address] PCP - General Internal Medicine 11/09/16 documented as of this encounter
--- OUTSIDE RECORDS SUMMARY | 2024-01-29 17:48 | External Medical Summary ---
Author Name Unknown Address Unknown Organization K09:[facility] [place] VAZQUEZ [id number] Laboratory Report Ordering Provider Test Date Status ENMANUEL REARDON 12/18/2023 12:44:06 Final Observation Date Value Abnormality Reference (Units ) Status WBC, Total 12/18/2023 12:44:06 3.79 Below low normal 4. 00-10.80 (K/uL) Final RBC 12/18/2023 12:44:06 3.43 4.50-5.25 (M/uL) Final Hemoglobin 12/18/2023 12:44:06 9.7 Below low normal 14 .0-16.8 (g/dL) Final HCT 12/18/2023 12:44:06 31.9 Below low normal 40. 0-48.4 (%) Final MCV 12/18/2023 12:44:06 93.0 82.0-99.5 (fL) Final MCH 12/18/2023 12:44:06 28.3 27.0-34.0 (pg) Final MCHC 12/18/2023 12:44:06 30.4 32.0-36.0 (g/dL) Final RDW 12/18/2023 12:44:06 17.7 11.5-15.5 (%) Final Platelets 12/18/2023 12:44:06 181 140-400 (K /uL) Final MPV 12/18/2023 12:44:06 9.7 6.6-11.1 ( fL) Final Performing Location [facility] [place] [address]
--- OUTSIDE RECORDS SUMMARY | 2024-01-29 17:48 | External Medical Summary | Summary of Care ---
Author Name Unknown Organization [facility] Address [address] [facility] [place] [address] Phone [phone] Care Team Providers Care Telephone Ad Taker Name Role Phone Jocelyne Desai DO Primary Care Provider + [phone] Encounter Details Date Type Department Care Team (Late st Contact Info) Description 12/15/2023 Population Health External Data Unspecified Department Allergies No known active allergiesdocumented as of this encounter (statuses as of 12/15/2023) Medications Medication Sig Dispensed Refills Start Date [...] disease, chronic, stage IV (GFR 15-29 ml/min) ([facility]) Take 1 Tablet by mouth in the morning and 1 Tablet before bedtime. 120 Tablet 3 11/30/2023 Active documented as of this encounter (statuses as of 12/15/2023) Active Problems Patient Care Coordination No te Formatting of this note migh t be different from the original. Good connectivity [facility] for wound care [phone] Televideo if needed. Problem Noted Date Diagnosed [...] ICD-10 update of inactive term PLATT RESEARCH OTHER*[id number] 02/20/2007 ADVANCE DIRECTIVE INFORMATION 01/19/2005 Overview: Yes, Patient instructed to provide copy of advance directive for provider to review and to be scanned into Electronic Medical Record No, Advance Directive brochure given to patient at prior appointment. SPINAL STENOSIS-LUMBAR 09/23/2002 Vitamin D deficiency Cervical spinal stenosis documented as of this encounter (statuses as of 12/15/2023) Resolved Problems Problem Noted Date Diagnosed Date Resolved Date Chronic kidney disease (CKD) , stage IV (severe) 09/27/2023 10/26/2023 Depression, unspecified 11/09/202104/14 Depression, unspecified 11/09/202105/2022 Cellulitis of right leg 07/13/202105/2022 Last Assessment & Plan: Suspect this could be early/localized. Will treat with 7 days antibiotic. If pt cannot be reassess by Dr. Braxton office early next week will need [facility] provider recheck Multiple and open wound [...] 11/17/19 23 LUMBAGO 12/24/2002 05/09/2007 LOC PRIM HASBPHON-U-OII 12/24/200208/13 DEGENERATIVE SKIN DISORD 12/24/2002 VERTEBRAL FX [...] as of this encounter (statuses as of 12/15/2023) Immunizations Name Administration Dates Next Due COVID-19 [...] No 10/31/2023 Does the household have a memorial healthcarer source of income? (Household - for ages [...] Team (Late st Contact Info) Description 12/18/2023 12:30 PM EST Laboratory Laboratory [facility] [address] [place] [phone] [place] [address] 12/18/2023 1:00 PM EST Office Visit Hematology/Oncology [facility] [address] [place] [phone] Monse Coates MD [address] [place] [address] [place] [address] 12/18/2023 1:30 PM EST Immunization/Injection Hematology/Oncology Treatment, [employer] [address] [place] [phone] Kayley, Chair 7 Hem Onc Scenery [address] [place] [address] 12/19/2023 6:15 AM EST Anticoagulation Centralized Clinical Pharmacy Services, Ilya Lafleur [address] [place] [address] [place] [address] Ccps, [address] [place] [address] 12/25/2023 10:30 AM EST Laboratory Laboratory Scenery [employer] [address] [place] [phone] [place], Lab Scenery [address] [place] [address] 01/19/2024 9:00 AM EST Office Visit Gastroenterology [address] [place] [address] Moon Avila, OLEG [address] [place] [address] 02/20/2024 12:30 PM EST Nurse Only Ancillary [address] [place] [address] [place], Nurse [address] [place] [address] 03/08/2024 2:30 PM EST Office Visit Family Medicine [address] [place] [phone] Jocelyne Desai, [address] [place] [address] 04/16/2024 3:00 PM EST Office Visit Nephrology [address] [place] [address] Jennifer Agustin MD 200 [facility] [employer], [place] [address] Scheduled Procedures Name Priority Associated Diagnoses Date/Ti [...] this encounter Medical Devices Implanted Type Area Night Time Nanny Device Identifier Shelf Expiration Date Model / Serial / Lot Shaft Fibula 6cm [id number] - [id number] Implanted:Qty: 1 on 09/05/2008 at [place] [facility] Tissue - Human N/A: Spine Cervical MUSCULOSKELETAL TRANSPLANT FND 04/20/2010 [id number] / [id number] 0P / Stent Eso Gw 22x70 20091-657 - [id number] Implanted:Qty: 1 on 01/21/2008 at OR [facility] N/A: Esophagus ALVEOLUS INC 04/12/2009 40180-321 / / [id number] Depuy Uniplate 32 Implanted:Qty: 1 on 09/05/2008 [...] Plate Zach 3 Level Ti 54mm - [id number] Implanted:Qty: 1 on 05/07/2010 at [place] [facility] N/A: Neck JNJ : DEPUY SPINE [id number] 54 / / Screw Zach Const St Ti 14mm - [id number] Implanted:Qty: 4 on 05/07/2010 at [place] [facility] N/A: Neck JNJ : DEPUY SPINE [id number] 14 / / Screw 3.5x14 Mntr Fa [id number] - [id number] Implanted:Qty: 8 on 05/07/2010 at OR [facility] N/A: Spine Cervical JNJ : ETH[employer]ON CARDI[employer]ATIONS [id number] / / Jarrell [id number] [id number] - [id number] Implanted:Qty: 1 on 05/07/2010 at OR [facility] N/A: Spine Cervical JNJ : ETH[employer]ON CARDIOVATIONS [id number] / / Screw Inner Mntr [id number] - [id number] Implanted:Qty: 8 on 05/07/2010 at OR [facility] N/A: Spine Cervical JNJ : ETH[employer]ON CARDIOVATIONS [id number] / / Envista Intraocular Lens Implanted:Qty: 1 on 03/10/2022 by Liang Marshall MD at OR [facility] Right: Eye BAUSCH & LOMB 08/13/2023 [id number] / [id number] / [id number] Envista Intraocular Lens Implanted:Qty: 1 on 03/24/2022 by Liang Marshall MD at OR [facility] Left: Eye BAUSCH & LOMB 07/13/2024 [id number] / [id number] / [id number] documented as of this encounter Advance Directives Documents on File Type Date Recorded 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 No Care Teams Telephone Ad Taker Relationship Specialty Start Date End Date Jocelyne Desai DO [address] [place] [address] [place] [address] PCP - General Internal Medicine 11/09/16 documented as of this encounter
--- OUTSIDE RECORDS SUMMARY | 2024-01-29 17:48 | External Medical Summary | Summary of Care ---
Author Name Unknown Organization [facility] Address [address] [facility] [place] [address] Phone [phone] Care Team Providers Care Gaming Manager Name Role Phone Jocelyne Desai DO Primary Care Provider + [phone] Encounter Details Date Type Department Care Team (Late st Contact Info) Description 12/18/2023 Population Health External Data Unspecified Department Allergies [...] stage IV (GFR 15-29 ml/min) ([facility]) Take 1 Tablet by mouth in the morning and 1 Tablet before bedtime. 120 Tablet 3 11/30/2023 Active documented as of this encounter (statuses as of 12/18/2023) Active Problems Patient Care Coordination No te Formatting of this note migh t be different from the original. Good connectivity [facility] for wound care [phone] Televideo if needed. Problem Noted Date Diagnosed [...] podiatry,. Letter in chart from [facility] podiatry they were unable to get [...] ICD-10 update of inactive term PLATT RESEARCH OTHER*[id number] 02/20/2007 ADVANCE DIRECTIVE INFORMATION 01/19/2005 Overview: Yes, [...] 11/17/19 23 LUMBAGO 12/24/2002 05/09/2007 LOC PRIM [id number] 12/24/200208/13 DEGENERATIVE SKIN DISORD 12/24/2002 VERTEBRAL FX [...] No 10/31/2023 Does the household have a [facility] source [facility] income? (Household - for [...] 12/18/2023 12:30 PM EST Laboratory Laboratory [place] [address] [place] [phone] [place] [address] 12/18/2023 1:00 PM EST Office Visit Hematology/Oncology [place] [address] [place] [phone] Monse Coates MD [address] [place] [address] [place] [address] 12/18/2023 1:30 PM EST Immunization/Injection Hematology/Oncology Treatment, [place] [address] [facility] [place], [place] [phone] Kayley, Chair 7 Hem Onc Scenery [address] [place], [place] [address] 12/19/2023 6:15 AM EST Anticoagulation Centralized Clinical Pharmacy Services, Ilya Lafleur [address] [place] [address] [place] [address] [facility], [address] [place] [address] 01/01/2024 10:30 AM EST Laboratory Laboratory [facility] Kayley [place] [address] [place] [phone] Kayley, Lab Scenery [address] [place], [place] [address] 01/01/2024 11:00 AM EST Immunization/Injection Hematology/Oncology Treatment, [place] 200 [facility], [place] [phone] Kayley, Chair 7 Hem Onc Scenery [address] [place], [place] [address] 01/15/2024 10:20 AM EST Laboratory Laboratory Scenery Kayley [place] [address] [place], [place] [phone] Kayley, Lab Scenery [address] [place] [address] 01/15/2024 11:00 AM EST Immunization/Injection Hematology/Oncology Treatment, [place] [address] [facility] [place], [place] [phone] Kayley, Chair 7 Hem Onc Scenery [address] [place], [place] [address] 01/19/2024 9:00 AM EST Office Visit Gastroenterology [address] [place] [address] Moon Avila CRNP [address] [place] [address] 02/20/2024 12:30 PM EST Nurse Only Ancillary [address] [place] [address] [place], Nurse Annual [address] [place] [address] 03/08/2024 2:30 PM EST Office Visit Family Medicine [address] [place] [phone] Jocelyne Desai, [address] [place] [address] 04/16/2024 3:00 PM EST Office Visit Nephrology [address] [place] [address] Jennifer Agustin [facility] [address] [facility] [address] Scheduled Procedures Name Priority Associated Diagnoses Date/Ti [...] this encounter Medical Devices Implanted Type Area Physician Practice Coordinator Device Identifier Shelf Expiration Date Model / Serial / Lot Shaft Fibula 6cm [id number] - [id number] Implanted:Qty: 1 on 09/05/2008 at OR [facility] [place] Tissue - Human N/A: Spine Cervical MUSCULOSKELETAL TRANSPLANT FND 04/20/2010 [id number] / [id number] / Stent Eso Gw 22x70 [id number] - [id number] Implanted:Qty: 1 on 01/21/2008 at OR [facility] [place] N/A: Esophagus [employer] 04/12/2009 [id number] / / [id number] Depuy Uniplate 32 Implanted:Qty: 1 on 09/05/2008 [...] [place] N/A: Neck [id number] / [id number] / Plate Zach 3 Level Ti 54mm - [id number] Implanted:Qty: 1 on 05/07/2010 at OR [facility] N/A: Neck JNJ : DEPUY SPINE [id number] / / Screw Zach Const St Ti 14mm - [id number] Implanted:Qty: 4 on 05/07/2010 at OR [facility] [place] N/A: Neck JNJ : DEPUY SPINE [id number] / / Screw 3.5x14 Mntr Fa [id number] - [id number] Implanted:Qty: 8 on 05/07/2010 at OR [facility] [place] N/A: Spine Cervical JNJ : ETH[employer] [id number] / / Jarrell [id number] - [id number] Implanted:Qty: 1 on 05/07/2010 at OR [facility] [place] N/A: Spine Cervical JNJ : [employer] [id number] / / Screw Inner Mntr [id number] - [id number] Implanted:Qty: 8 on 05/07/2010 at OR [facility] [place] N/A: Spine Cervical JNJ : [employer] [id number] / / Envista Intraocular Lens Implanted:Qty: 1 on 03/10/2022 by Liang Marshall MD at OR [facility] Right: Eye [employer]OMB 08/13/2023 [id number] / [id number] / [id number] Envista Intraocular Lens Implanted:Qty: 1 on 03/24/2022 by Liang Marshall MD at OR 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 No Care Teams Gaming Manager Relationship Specialty Start Date End Date Jocelyne Desai DO [address] [place] [address] [place] [address] PCP - General Internal Medicine 11/09/16 documented as of this encounter
--- OUTSIDE RECORDS SUMMARY | 2024-01-29 17:48 | External Medical Summary | Summary of Care ---
Author Name Unknown Organization [facility] Address [address] [facility] [place] [address] Phone [phone] Care Team Providers Care Custodial Officer Name Role Phone DesaiElissaJocelynejohn Cunninghame DO Primary Care Provider + [phone] Reason for Visit * Reason Comments Dosage Adjustment Via Phone (anticoag Cl inic) Encounter Details Date Type Department Care Team ([facility] st Contact Info) Description 12/19/2023 6:15 AM EST Anticoagulation Centralized Clinical Pharmacy Services, Ilya Lafleur [address] [place] [address] [place] [address] [facility], [address] [place] [address] Chronic atrial fibrillation (HCC)* Allergies No known active allergiesdocumented as of this encounter (statuses as of 12/19/2023) Medications Medication Sig Dispensed Refills Start Date [...] chronic, stage IV (GFR 15-29 ml/min) ([facility]) Take 1 Tablet by mouth in the morning and 1 Tablet before bedtime. 120 Tablet 3 11/30/2023 Active documented as of this encounter (statuses as of 12/19/2023) Active Problems Patient Care Coordination No te Formatting of this note migh t be different from the original. Good connectivity [facility] for wound care [phone] Televideo if needed. Problem Noted Date Diagnosed [...] ICD-10 update of inactive term PLATT RESEARCH OTHER*[id number] 02/20/2007 SPINAL STENOSIS-LUMBAR 09/23/2002 Vitamin D deficiency Cervical spinal stenosis documented as of this encounter (statuses as of 12/19/2023) Resolved Problems Problem Noted Date Diagnosed Date Resolved Date Chronic kidney disease (CKD) , stage IV (severe) 09/27/2023 10/26/2023 Depression, unspecified 11/09/2021 03 Depression, unspecified 11/09/202105/2022 Cellulitis of right leg [...] 11/17/19 23 LUMBAGO 12/24/2002 05/09/2007 LOC PRIM [id number] 12/24/200208/13 DEGENERATIVE SKIN DISORD 12/24/2002 VERTEBRAL FX [...] as of this encounter (statuses as of 12/19/2023) Immunizations Name Administration Dates Next Due COVID-19 [...] as of this encounter Progress Notes * Erica Pope, [facility] - 12/19/2023 12:53 PM EST Contacts Contact Date/Time Type Contact Phone/Fax 12/19/2023 12:52 PM EST Phone (Outgoing) Lg Cooley "Akshat" (Self) [phone] (H) Left Message Subjective Advised patient to contact Anticoagulation Clinic if any unusual bruising or bleeding, recent illness, changes in medication, or questions/concerns. PT/INR results, Coumadin dose instructions, and next PT/INR date communicated as noted by Pharmacist: Yes ERICA POPE CPhT 12/19/2023, 12:53 PM * Estefania Palacios RPh - 12/19/2023 12:48 PM EST Coumadin Clinic (region specific) Objective Current Warfarin Dose As of 12/19/2023 Warfarin maintenance plan: 3 mg (3 mg x 1) every Tue, Mariel; 1.5 mg (3 mg x 0.5) all other days INR Result As of 12/19/2023 INR goal: 2.0-3.0 INR used for dosin.4 (12/18/2023) Assessment & Plan Warfarin Plan As of 12/19/2023 Full warfarin instructions: 3 mg every Tue, Mariel; 1.5 mg all other days No change documented: Estefania Palacios RPh Next INR check: 01/01/2024 Repeat PT/INR in 2 week(s) Weekly dose: not changed Additional Dosing Information: Description [facility]es -- Mondays and Fridays ; fax - [phone] ([facility]) Tech to contact patient with dose instructions as noted. Estefania Palacios RPh 12/19/2023, 12:48 PM documented in this encounter Plan of Treatment Upcoming Encounters Date Type Department Care Team (Late st Contact Info) Description 01/01/2024 10:30 AM EST Laboratory Laboratory Cely Zaldivar [place] [address] [place], [place] [phone] [place], Lab Scenery [address] [place] [address] 01/01/2024 11:00 AM EST Immunization/Injecti on Hematology/Oncology Treatment, [place] [facility] [phone] Kayley, Chair 7 Hem Onc [facility] 200 [facility] [place] [address] 01/15/2024 1:10 PM EST Laboratory Laboratory [address] [place] [phone] Kayley, Lab [facility] 200 [facility] [place] [address] 01/15/2024 1:30 PM EST Office Visit Hematology/Oncology [address] [place] [phone] Monse Coates MD [address] [place] [address] [place] [address] 01/15/2024 2:00 PM EST Immunization/Injecti on Hematology/Oncology Treatment, [address], [place] [phone] Kayley, Chair 7 Hem Onc [facility] 200 [facility] [place] [address] 01/19/2024 9:00 AM EST Office Visit Gastroenterology [address] [place] [address] Moon Avila CRNP [address] [place] [address] 02/20/2024 12:30 PM EST Nurse Only Ancillary [address] [place] [address] Marle[place], Nurse [address] [place] [address] 03/08/2024 2:30 PM EST Office Visit Family Medicine [address] [place] [phone] [address] [place] [address] 04/16/2024 3:00 PM EST Office Visit Nephrology [address] [place] [address] Jennifer Agustin MD 200 [facility] [place] [address] Scheduled Procedures Name Priority Associated Diagnoses Date/Ti [...] this encounter Medical Devices Implanted Type Area Production Worker Device Identifier Shelf Expiration Date Model / Serial / Lot Shaft Fibula 6cm [id number] - [id number] Implanted:Qty: 1 on 09/05/2008 at [place] [facility] [place] Tissue - Human N/A: Spine Cervical MUSCULOSKELETAL TRANSPLANT FND 04/20/2010 [id number] / [id number] / Stent Eso Gw 22x70 [id number] - [id number] Implanted:Qty: 1 on 01/21/2008 at [place] [facility] [place] N/A: Esophagus [employer] 04/12/2009 [id number] / / [id number] Depuy Uniplate 32 Implanted:Qty: 1 on 09/05/2008 [...] Plate Zach 3 Level Ti 54mm - [id number] Implanted:Qty: 1 on 05/07/2010 at [place] [facility] [place] N/A: Neck JNJ : DEPUY SPINE [id number] / / Screw Zach Const St Ti 14mm - [id number] Implanted:Qty: 4 on 05/07/2010 at [place] [facility] [place] N/A: Neck JNJ : DEPUY SPINE [id number] 14 / / Screw 3.5x14 Mntr Fa [id number] - [id number] Implanted:Qty: 8 on 05/07/2010 at [place] [facility] [place] N/A: Spine Cervical JNJ : ETH[employer]ATIONS [id number] / / Jarrell 3.4g256nd [id number] - [id number] Implanted:Qty: 1 on 05/07/2010 at [place] [facility] [place] N/A: Spine Cervical JNJ : ETH[employer] [id number] / / Screw Inner Mntr [id number] - [id number] Implanted:Qty: 8 on 05/07/2010 at [place] [facility] [place] N/A: Spine Cervical JNJ : ETH[employer]ATIONS [id number] / / Envista Intraocular Lens Implanted:Qty: 1 on 03/10/2022 by Liang Marshall MD at [facility] Right: Eye [employer]CH [employer] LOMB 08/13/2023 [id number] / [id number] / [id number] Envista Intraocular Lens Implanted:Qty: 1 on 03/24/2022 by Liang Marshall MD at [place] [facility] Left: Eye BAUSCH [employer] LOMB 07/13/2024 [id number] / [id number] / [id number] documented as of this encounter Visit Diagnoses Diagnosis Chronic atrial fibrillation (HCC)- Primary Atrial fibrillation documented in this encounter Advance Directives Documents on File Type Date Recorded 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 No Care Teams Custodial Officer Relationship Specialty Start Date End Date Jocelyne Desai DO [address] [place] [address] [place] [address] PCP - General Internal Medicine 11/09/16 documented as of this encounter
--- OUTSIDE RECORDS SUMMARY | 2024-01-29 17:48 | External Medical Summary ---
Author Name Unknown Address Unknown Organization K09:[facility] [place] [address] Laboratory Report Ordering Provider Test Date Status ENMANUEL REARDON 12/18/2023 12:44:06 Final Observation Date Value Abnormality Reference (Units ) Status SYNC LEUKOCYTES IN BLOOD BY AUTOMATED COUNT 12/18/2023 12:44:06 3.79 Below low normal 4.00-10.80 (K/uL) Final Segs 12/18/2023 12:44:06 60.4 40.0-75.0 (%) Final Lymphs % 12/18/2023 12:44:06 25.1 18.0-42.0 (%) Final Monos 12/18/2023 12:44:06 10.0 1.0-11.0 (%) Final Eosinophils 12/18/2023 12:44:06 4.5 0.0-6.0 (%) Final Basos 12/18/2023 12:44:06 0.0 0.0-2.0 (%) Final Absolute Segs 12/18/2023 12:44:06 2.29 1.80-7.70 (K/uL) Final Lymphs, absolute 12/18/2023 12:44:06 0.95 Below low normal 1.00-4.80 (K/ul) Final Monos, Abs 12/18/2023 12:44:06 0.38 0.00-1.10 (K/uL) Final Eos, Abs 12/18/2023 12:44:06 0.17 0.00-0.70 (K/uL) Final Basos, Abs 12/18/2023 12:44:06 0.00 0.00-0.20 (K/uL) Final Performing Location [facility] [place] [address]
--- OUTSIDE RECORDS SUMMARY | 2024-01-29 17:48 | External Medical Summary | Summary of Care ---
Author Name Unknown Organization [facility] [address] [facility] [facility] [address] Phone [phone] Care Team Providers Care Compliance Program Manager Name Role Phone Silvia Armas Primary Care Provider [phone] Reason for Visit * Reason Comments Chronic Kidney Disease (CKD) Post Option s Encounter Details Date Type Department Care Team (Late st Contact Info) Description 11/30/2023 1:00 PM EDT Office Visit Nephrology [address] [place] [address] Jennifer Agustin MD [address] [facility] [place] [address] Stage 4 chronic kidney disease (HCC)*; Other hypervolemia; Persistent proteinuria; Metabolic acidosis; Hypertension goal BP (blood pressure) < 130/80; 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); Kidney disease, chronic, stage IV (GFR 15-29 ml/min) (HCC) Allergies No known active allergiesdocumented as of this encounter (statuses as of 12/17/2023) Medications Medication Sig Dispensed Refills Start Date [...] UNIT) Oral Tablet Chewable Take by mouth. Active Sodium Bicarbonate 650 MG Oral Tablet Take [...] chronic, stage IV (GFR 15-29 ml/min) ([facility]) Take 1 Tablet by mouth in the morning and 1 Tablet before bedtime. 120 Tablet 3 11/30/2023 Active Doxycycline Hyclate 100 MG Oral Tablet Delayed Release Take 1 Tablet by mouth in the morning and 1 Tablet before bedtime. Discontinued Torsemide 20 MG Oral Tablet (Demadex) Take 2 Tablets by mouth in the morning. 180 Tablet 1 11/20/2023 Discontinued Potassium Chloride Candi ER 20 MEQ Oral Tablet Extended ReleaseIndicatio ns:Kidney disease, chronic, stage IV (GFR 15-29 ml/min) ([facility]) Take one tablet by mouth TWICE daily Mon, Wed, Fri and one tablet ONCE daily other days of week 120 Tablet 1 11/23/2023 4 Discontinued documented as of this encounter (statuses as of 12/17/2023) Active Problems Patient Care Coordination No te Formatting of this note migh t be different from the original. Good connectivity [facility] for wound care [phone] Televideo if needed. 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 SPINAL STENOSIS-LUMBAR 09/23/2002 Vitamin D deficiency Cervical spinal stenosis documented as of this encounter (statuses as of 12/17/2023) Resolved Problems Problem Noted Date Diagnosed Date [...] 11/17/19 23 LUMBAGO 12/24/2002 05/09/2007 LOC PRIM [id number]-TAN 12/24/200208/13 DEGENERATIVE SKIN DISORD 12/24/2002 VERTEBRAL FX [...] as of this encounter (statuses as of 12/17/2023) Immunizations Name Administration Dates Next Due COVID-19 mRNA, LNP-s, No Pre serve, 2-Dose Series (Moderna) 03/19/2020 COVID-19 mRNA, LNP-s, No Pre serve, 2-Dose Series (Pfizer) 02/16/2021,04/09/2020,03/19/2020 COVID-19, MRNA-LNP, PF, 30 M CG/0.3 mL, 12 YRS AND ABOVE, IM ([employer]) 11/16/2022 Covid-19, Mrna, Lnp-s, Pf, B ivalent, [...] Sign Reading Time Taken Comments Blood Pressure 123/69 11/30/2023 1:02 PM EDT Pulse 63 11/30/2023 1:02 PM EDT Temperature 36.4 C (97.5 F) 11/30/2023 1:02 PM ED T Respiratory Rate 18 11/30/2023 1:02 PM EDT Oxygen Saturation 99% 11/30/2023 1:02 PM EDT Inhaled Oxygen Concentration - - Weight 98.4 kg (217 lb) 11/30/2023 1:02 PM EDT Height - - Body Mass Index 30.27 11/06/2023 1:54 PM EDT documented in this encounter Patient Instructions * Patient Instructions* Jennifer Agustin MD - 11/30/2023 1:26 PM EDT -increase torsemide to 40 mg twice daily and potassium to 20 mEq twice daily -check labs after 7-10 days ->will have home dialysis nurse reach out from [place] for home visit; then after that [facility] and [facility]F evaluation -no change to other meds -keep weighing yourself daily -eat a low sodium diet (less than 2000 mg or 1/2 tsp) daily -keep following 1.5L fluid limit daily -avoid medicines like aleve, advil, ibuprofen, aspirin more than 81 mg daily and other NSAIDS whichare not good for kidney patients. Take only tylenol (acetaminophen) up to 2000 mg daily as needed for pain or as directed by your primary care provider. -continue wound care follow up documented in this encounter Progress Notes * Jennifer Agustin MD - 11/30/2023 1:03 PM EDT NEPHROLOGY CLINIC NOTE Nephrology [address] [place] [address] 11/30/2023, 1:03 PM Patient Name: Lg Cooley BACKGROUND: 73 year old male presents for post ESRD options and close in follow- up even after hosp d/c for admission [facility] November for [place]/worsening CKD in setting chronic LE wounds. PMH includes ischemic left MCA stroke 01/2018 managed at [facility] and for long time after amb w/ cane; DM since 1999 approx with triopathy, HTN dx'd after this; CAD s/p stent, PAD, MINERVA on BiPAP, post stroke urinary retention follows w/ urology; also with chronic atrial fibrillation on AC, tachy-geronimo syndrome status post pacemaker placement, peripheral vascular disease, morbid obesity status post Rouxen Y in 2007 [facility], esophageal strictures, cervical and lumbar spine degenerative [...] FH of renal disease. No stone hx. Frequent [facility] admissions: -Admitted [facility] 05/05-05/15/19 w/ LLE cellulitis after a fall. Cellulitis treated with daptomycin and Zosyn, later Augmentin. Noted on vascular studies to have venous insufficiency and possible 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 stenosis for outpatient follow- up. Followed initially with wound clinic but now L foot sore healed. Admission creatinine 2.1, discharge creatinine 1.5. He was discharged [facility]. -pacemaker change February 01, 2023 -October 02, 2022 acute heart failure with reduced ejection fraction and right lower extremity cellulitis. Jardiance stopped due to cellulitis; losartan also held. On Ozempic at discharge -extended admission July 03, 2023 because of severe right lower extremity swelling in the setting ofpersistent lower extremity cellulitis with toe amputations. Developed acute on chronic kidney injury with peak creatinine 5.1 on June 17, up from 3.2 on June 13 presentation. First creat on 06/[address] [place] [address] d/c. Was d/c to [facility] for rehab, home about 10 days now. Takes minimal tylenol >2-3 X since hosp d/c. -Oct 20-2023 [facility] for acute on chronic anemia with presenting hemoglobin 6.8. He had 2 units ofpacked red cells with stable hemoglobin thereafter; GI evaluated the patient did not feel endoscopywas indicated; unremarkable colonoscopy 2021 and EGD October 03, 2023 without bleeding. Discharge hemoglobin 7.3; discharged with wound VAC left lower extremity and for further follow-up with Wound Care for bilateral chronic diabetic ulcers. Presenting creatinine 4.3; discharge creatinine 4.5 patient aware he is getting close to needing dialysis. No volume overload from a cardiopulmonary standpoint. Discharged on 1.5 L fluid limit, 20 mg torsemide Monday with 20 mEq potassium onthose days video capsule endoscopy planned at discharge as well. Active in his grandkids' lives. Helps get hsi brother to/from appts. Active in his high school class. At March 04, 2023 visit Weighs self daily >> 234 #; slowly upcreeping. TODAY 11/30/2023: Scheduled w/ [facility] of [facility] vascular >> but [facility] requested b/c pt unable / unwilling to travel to [facility] for surical procedures. Batteries in [facility] scale have been out; just got back in this AM. Wt steady at home though. Not needed in wound clinic weekly but now every other week with visit from N MWF to change bandages. RLE calf/bottom R foot much smaller; L heel wound improving too. Cont w/ weekly procrit through heme Sees [facility] in January to discuss video capsule study He lives downstairs from his daughter but her kids are in all kinds of sports; she works and then is off doing sports w/ them and often not home til all hours > so not a potential dialysis partner REVIEW OF SYSTEMS: No F/C; wt unchanged; energy still low but improvingand appetite acceptable/improving; had been having early satiety No palpitations, angina; sleeps chronically in chair; recently LE edema controlled still No cough, wheeze; stable chronic exertional dyspnea No N/V/D/C/abd pain No dysuria, hematuria, nocturia >2X; no new/worrisome voiding sx No new focal joint/muscle aches No presyncopal or orthostatic [...] EXAMINATION: BP Readings from Last 6 Encounters: 11/30/23 123/69 11/27/23 124/82 11/20/23 146/77 11/20/23 147/91 11/06/23 132/85 11/01/23 124/70 Wt Readings from Last 6 Encounters: 11/30/23 98.4 kg (217 lb) 11/20/23 96.6 kg (213 lb) 11/20/23 96.6 kg (213 lb) 11/06/23 96.5 kg (212 lb 12.8 oz) 11/01/23 97.1 kg (214 lb) 09/27/23 93.1 kg (205 lb 3.2 oz) Pulse Readings from Last 6 Encounters: 11/30/23 63 11/20/23 85 11/20/23 100 11/06/23 94 11/01/23 88 09/27/23 69 NAD, oriented x 3, ambulatory w/ cane Hoarse voice RRR w/o m/g/r; 2-3+edema proximally w/ BL legs wrapped to knees CTAB w/ reasonable air mvt NT abd, +BS, soft No cyanosis or clubbing No rash; marked pallor; wounds not examined No tremor, focal or global weakness; fluent speech, good historian LABS: Recent Labs Units 11/27/23 1012 11/20/23 1526 11/13/23 0000 11/01/23 1140 10/20/23 0000 10/02/23 1356 SODIUM - [facility] mmol/L 140 137 -- 139 -- 141 POTASSIUM - [facility] mmol/L 4.1 4.2 3.9 4.1 < > 4.5 CHLORIDE - [facility] mmol/L 107 107 -- 109* -- 112* CO2 - [facility] mmol/L 20* 19* -- 16* -- 15* ESTIMATED GLOMERULAR FILTRATION RATE - [facility] mL/min 16* 16* 15* 14* < > 15* BUN - [facility] mg/dL 66* 58* -- 72* -- 68* CREATININE - [facility] mg/dL 3.9* 3.8* 3.95* 4.3* < > 4.1* < > = values in this interval not displayed. Recent Labs Units 11/27/23 1012 11/20/23 1339 11/13/23 0000 11/01/23 1140 10/02/23 1356 08/23/23 1246 07/26/23 0000 07/18/23 1334 11/16/22 1520 05/13/22 1441 [facility]GB g/dL 8.7* 8.5* 7.8* 8.7* < > 8.5* < > 11.3* < > -- FERRITIN - [facility] ng/mL 255 -- -- 121 -- 116 -- -- -- 47 TRANSFERRIN SATURATION PERCENT - [facility] % 17 -- -- 8* -- 6* -- 11* -- 15 < > = values in this interval not displayed. Recent Labs Units 11/27/23 1012 11/20/23 1526 11/13/23 0000 11/01/23 1140 10/02/23 1356 09/26/23 0852 08/23/23 1246 07/18/23 1334 06/28/23 0615 02/23/23 1605 01/17/23 0904 11/16/22 1520 CALCIUM - [facility] mg/dL 8.3* 8.1* -- 8.1* 7.7* < > 8.3* 8.8 < > 8.1* < > 8.0* PHOSPHORUS - [facility] mg/dL -- -- -- 5.7* -- -- 4.6 3.8 < > -- -- 2.6 PHOSPHORUS-OUTSIDE LAB MG/DL -- -- 3.9 -- -- -- -- -- -- -- -- -- 25-HYDROXY VITAMIN D - [facility] ng/mL 28 -- -- 31 -- -- -- 48 -- -- -- 28 PTH - [facility] pg/mL 292* -- -- 361* -- -- -- 280* -- 197* -- -- < > = values in this interval not displayed. Recent Labs Units 08/23/23 1246 11/16/22 1520 05/13/22 1441 HEMOGLOBIN A1C - [facility] % 6.3* 6.5* 7.0* Recent Labs Units 11/27/23 1012 11/01/23 1140 07/18/23 1334 11/16/22 1520 ALBUMIN / CREATININE RATIO, URINE - [facility] mg/g Creat 260* 188* 261* 857* PROTEIN/ CREATININE RATIO, URINE - [facility] mg/g -- 469* -- -- Recent Labs Units 11/27/23 1012 11/01/23 1140 07/18/23 1334 CLARITY, URINE - [facility] Clear Clear Clear GLUCOSE, URINE - [facility] mg/dL Negative Negative Negative BILIRUBIN, URINE - [facility] Negative Negative Negative KETONE, URINE - [facility] mg/dL Negative Negative Negative SPECIFIC GRAVITY, URINE - [facility] 1.010 1.010 1.014 BLOOD, URINE - [facility] Negative Negative Negative PH, URINE - [facility] Units 5.0 5.5 6.0 PROTEIN, URINE - [facility] mg/dL 100* Trace* 30* PROTEIN, RANDOM URINE - [facility] mg/dL -- 15 -- UROBILINOGEN, URINE - [facility] mg/dL 0.2 Normal Normal NITRITE, URINE - [facility] Negative Negative Negative ESTERASE, URINE - [facility] Small* Negative Moderate* BACTERIA, URINE - [facility] /HPF 0-25 0-25 26-50* WBC, URINE - [facility] /HPF 20-29* 0-2 10-19* RBC, URINE - [facility] /HPF 3-5* 0-2 3-5* ASSESSMENT AND PLAN: Stage 4 chronic kidney disease (HCC) (Primary) - BASIC METABOLIC PANEL; Future; Expected date: 12/01/2023 Other hypervolemia - BASIC METABOLIC PANEL; Future; Expected date: 12/01/2023 Persistent proteinuria Metabolic acidosis Hypertension goal BP (blood pressure) < 130/80 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) Kidney disease, chronic, stage IV (GFR 15-29 ml/min) ([facility]) - Potassium Chloride Candi ER 20 MEQ Oral Tablet Extended Release; Take 1 Tablet by mouth in the morning and 1 Tablet before bedtime. Other orders - Torsemide 20 MG Oral Tablet (Demadex); Take 2 Tablets by mouth in the morning and 2 Tablets in the evening. Follow Up: Return in about 3 months (around 03/01/2024) for clinic visit w/ . | For: clinic visit w/ | Check-out note: Waitlist MD only bolivar guzman CKD4 >> 5 w/ eGFR hovering at about 15, though was 16 on labs earlier this week. Albuminuria improving to 250-300 (260 on ACR this week) compared to 850 one year ago. Ongoing metabolic acidosis -ensure taking sodium bicarb po -chemcistries ok Ongoing voluem overlaod >> increase K, torse as below and recheck labs -home eval for PD -w/ volume issues PD may be a challenge, marshal if his residual renal function drops > will get AVFvery soon as well -cont FR, Low Na diet etc Hgb 8.7 this week, best reading since August -keep f/u w/ GI Patient Instructions -increase torsemide to 40 mg twice daily and potassium to 20 mEq twice daily -check labs after 7-10 days ->will have home dialysis nurse reach out from [place] for home visit; then after that refer to [facility] for PD catheter and AVF evaluation -no change to other meds -keep weighing yourself daily -eat a low sodium diet (less than 2000 mg or 1/2 tsp) daily -keep following 1.5L fluid limit daily -avoid medicines like aleve, advil, ibuprofen, aspirin more than 81 mg daily and other NSAIDS whichare not good for kidney patients. Take only tylenol (acetaminophen) up to 2000 mg daily as needed for pain or as directed by your primary care provider. -continue wound care follow up Besides the above evaluation and management, I spent considerable time on providing patient education about dialysis modalities as described below: Time in for patient Education: 8301 I saw the patient and provided comprehensive counseling and education including but not limited to the pathophysiology, complications, treatment plan and prognosis as relevant to the patient's case. We also spent a long time in discussing various modalities of renal replacement therapy including kidney transplantation, peritoneal dialysis, home hemodialysis and incenter hemodialysis. Furthermore,we discussed management through conservative care and end of life care if the patient does not wishto pursue dialysis. To guide education about modality choices, a few important pieces of information are as follows: Does the patient own or rent home? rent How many rooms does the home have? 2 bedroom, one for storage Reasonable hygiene at home? Yes Reliable electricity? Yes Does patient prefer a home modality? Yes Employed full- or rn post partum? No Drives a car- skills similar to home dialysis Yes Caregiver for child, elderly or disabled? No Lives far from clinic? No Student? No Needs/ wants to travel? No Wants a flexible schedule? Yes New to dialysis? Yes History of kidney transplant failure? No BP not controlled with drugs? No Difficulty limiting fluids for incenter HD? No Partner to help with dialysis? Does not know Patient wants control of dialysis? Yes Does patient have pets? No Blindness? No Problem with hand use or dexterity? Some mild R finger numbness after stroke Hearing impairment No H/o disruptive or angry behavior on HD? NO Unkempt or problems with hygiene? NO Morbid obesity? No Dementia/ memory/ cognition issues? NO Uncontrolled anxiety/ psychosis? NO Uncontrolled seizures? No Approximate 24 hr urine output? More than 1 L Needle fear or no remaining access site? No History of abdominal surgery? YES laparascopic gastric bypass History of hernia/ current hernia? unknown Colostomy/ Ileostomy? No Consequently, we discussed: Kidney transplantation: We discussed how kidney transplantation is the best renal replacement therapy overall. Preemptive kidney transplantation is not an option for the patient currently due to chronic wound. Peritoneal Dialysis: We discussed peritoneal dialysis and what it entails. I described the procedure for peritoneal dialysis access (in and out surgical laparoscopic placement by surgeon or fluoroscopic by interventional radiology). We reviewed relative contraindications such as abdominal hernias and peritoneal scarring from prior abdominal surgeries. Patient has a history of peritoneal surgery (laparascopic gastric bypass). Patient does not have a hernia except asymptomatic hiatal hernia. We reviewed that if not sure, the surgeon will examine the peritoneum at the time of surgery and determine if these issues are present and or if they can be repaired at the same time. Discussed the need of education of the patient as well as family members; as well as need for suitable home environment for Peritoneal dialysis. We also reviewed the specific home needs to be able to do PD safely, (storage space, clean room free of drafts and pets). We reviewed risk of infection which is relatively uncommon, and most of them are easily treated with intraperitoneal antibiotics, although some infections may result in the need for catheter removal and transitioning to in center hemodialysis. We reviewed the need for self-monitoring and compliancewith treatments. Patient had the following questions: none. All questions answered to the patient's apparent satisfaction Hemodialysis: Had a discussion with emphasis on education about access. Discussed risk of not getting access in place early enough for when dialysis is needed. We discussed where an AVF is placed, discussed the procedure of AVF creation and made it abundantly clear that AVF is the best hemodialysisaccess with the best clearance and least infectious complications. We also discussed AVG and Tunneled catheters, which are sometimes necessary but not optimal because of increased risk of infections,stenosis etc. Discussed that although dialysis catheter is not ideal we will need one if labs acutely worsen or uremic symptoms develop while waiting for AVF maturation. Patient is interested in pursuing hemodialysis at [facility]. Home hemodialysis: Discussed the need for a partner in training. Also discussed need for the partner to take time off and travel to the dialysis unit in order to adequately train for home hemodialysis. Patient does not have an available partner for home hemodialysis. Discussed the need of educationof the patient as well as family members; as well as need for suitable home environment for home hemodialysis. After modality education, the patient prefers: Peritoneal Dialysis The appropriate referrals will be requested as needed: [facility] for PD catheter evaluation and AVF creation when appropriate (? If can do it w/ wounds; concern for PD success w/ volume issues); will also need to arrange a home visit Time-out from patient Education: 5724 Total time spent in patient education: 32 minutes Jennifer Agustin MD Nephrology [address] [place] [address] CC: REF: SILVIA ARMAS [address] [place] [address] [place] [address] (office) [phone] (fax) PCP: SILVIA ARMAS [address] [place] [address] [place] [address] [phone] This chart was completed in part utilizing [employer] Speech Voice Recognition Software. Randomword insertions, pronoun errors, and incomplete sentences are an occasional consequence of this system due to software limitations, and ambient noise. Any questions or concerns about the content, text, or information contained within the body of this dictation should be directly addressed to the provider for clarification. documented in this encounter Nursing Notes * Libby Hurd RN - 11/30/2023 1:03 PM EDT Post options class visit. Has not yet started bicarb as mail order has not yet sent it. Will followup with mail order to expedite this. documented in this encounter Plan of Treatment Upcoming Encounters Date Type Department Care Team (Late st Contact Info) Description 12/18/2023 12:30 PM EST Laboratory Laboratory [facility] [address] [facility] [place] [phone] [place], Lab [address] [facility] [place] [address] 12/18/2023 1:00 PM EST Office Visit Hematology/Oncology [facility] [place] [address] [place] [phone] Monse Coates MD [address] [place] [address] [place] [phone] 12/18/2023 1:30 PM EST Immunization/Injection Hematology/Oncology Treatment, [place] [address] [facility] [address] [place] [phone] Kayley, Chair 7 Hem Onc [facility] [address] [facility] [place] [address] 12/19/2023 6:15 AM EST Anticoagulation [facility], Ilya Lafleur [address] [place] [address] [place] [address] [facility] [place] [address] 12/25/2023 10:30 AM EST Laboratory Laboratory [facility] Zaldivar [address] [place] [phone] [place], Lab [address] [place] [address] 01/19/2024 9:00 AM EST Office Visit Gastroenterology [address] [place] [address] Moon Avila CRNP [address] [place] [address] 02/20/2024 12:30 PM EST Nurse Only Ancillary [address] [place] [address] [place], Nurse [address] [place] [address] 03/08/2024 2:30 PM EST Office Visit Family Medicine [address] [place] [phone] [place] [address] [place] [address] 04/16/2024 3:00 PM EST Office Visit Nephrology [address] [place] [address] Jennifer Agustin MD [address] [place] [address] Scheduled Procedures Name Priority Associated Diagnoses Date/Ti [...] this encounter Medical Devices Implanted Type Area Groover Operator Device Identifier Shelf Expiration Date Model / Serial / Lot Shaft Fibula 6cm [id number] - [id number] Implanted:Qty: 1 on 09/05/2008 at [place] [facility] Tissue - Human N/A: Spine Cervical MUSCULOSKELETAL TRANSPLANT FND 04/20/2010 [id number] / [id number] / Stent Eso Gw 22x70 [id number] - [id number] Implanted:Qty: 1 on 01/21/2008 at [place] [facility] N/A: Esophagus [employer] 04/12/2009 [id number] / / [id number] Depuy Uniplate 32 Implanted:Qty: 1 on 09/05/2008 [...] [facility] N/A: Neck [id number] / [id number] / Plate Zach 3 Level Ti 54mm - [id number] Implanted:Qty: 1 on 05/07/2010 at [place] [facility] N/A: Neck JNJ : DEPUY SPINE [id number] / / Screw Zach Const St Ti 14mm - [id number] Implanted:Qty: 4 on 05/07/2010 at [place] [facility] N/A: Neck JNJ : [employer] SPINE [id number] / / Screw 3.5x14 Mntr Fa [id number] - [id number] Implanted:Qty: 8 on 05/07/2010 at [place] [facility] N/A: Spine Cervical JNJ : [employer] [id number] / / Jarrell [id number] - [id number] Implanted:Qty: 1 on 05/07/2010 at [place] [facility] N/A: Spine Cervical JNJ : [employer] [id number] / / Screw Inner Mntr [id number] - [id number] Implanted:Qty: 8 on 05/07/2010 at [place] [facility] N/A: Spine Cervical JNJ : [employer] [id number] / / Envista Intraocular Lens Implanted:Qty: 1 on 03/10/2022 by Liang Marshall MD at OR [facility] Right: Eye BAUSCH & LOMB 08/13/2023 [id number] / [id number] / [id number] Envista Intraocular Lens Implanted:Qty: 1 on 03/24/2022 by Liang Marshall MD at OR [facility] Left: Eye BAUSCH & LOMB 07/13/2024 [id number] / [id number] / [id number] documented as of this encounter Results * (ABNORMAL) BASIC METABOLIC PANEL (12/04/2023 10:05 AM EDT) BUN 74(H) 6 - 20 mg/dL 12/04/2023 11:50 AM EDT [facility] 56- CREATININE 4.1(H) 0.6 - 1.2 mg/dL 12/04/2023 11:50 AM EDT [facility] 56 EGFR 15(L) >=60 mL/min 12/04/2023 11:50 AM EDT [facility] 56 Comment:eGFR is calculated b ased on the CKD-EPI 2020 equation. SODIUM 142 135 - 146 mmol/L 12/04/2023 11:50 AM EDT [facility] 56- POTASSIUM 4.4 3.5 - 5.1 mmol/L 12/04/2023 11:50 AM EDT [facility] 56- CHLORIDE 107 98 - 107 mmol/L 12/04/2023 11:50 AM EDT [facility] 56- CO2 20(L) 22 - 32 mmol/L 12/04/2023 11:50 AM EDT [facility] 56- ANION GAP 15 7 - 15 mmol/L 12/04/2023 11:50 AM EDT [facility] 56- GLUCOSE 105 70 - 120 mg/dL 12/04/2023 11:50 AM EDT [facility] 56- CALCIUM 7.8(L) 8.4 - 10.2 mg/dL 12/04/2023 11:50 AM EDT [facility] 56- Blood Venous blood specimen / Unknown Venipuncture / Unknown 12/04/2023 10:05 AM EDT 12/04/2023 10:05 AM EDT Jennifer Agustin MD LAB BLOOD ORDERAB LES [facility] [address] [place] [phone] documented in this encounter Visit Diagnoses Diagnosis Stage 4 chronic kidney disease (HCC)- Primary Other hypervolemia Persistent proteinuria Proteinuria Metabolic acidosis Acidosis Hypertension goal BP (blood pressure) < 130/80 Unspecified essential hypertension 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) Kidney disease, chronic, stage IV (GFR 15-29 ml/min) (HCC) Chronic kidney disease, Stage IV (severe) documented in this encounter Advance Directives Documents on File Type Date Recorded Patient Rehabilitation Therapy Technician Expl anation POLST 01/26/2021 [place] [facility] FOR LIFE-SUSTAINING [...] Power of Attor andrew? No Care Teams Compliance Program Manager Relationship Specialty Start Date End Date Silvia Armas DO [address] [place] [address] [place] [phone] PCP - General Internal Medicine 11/09/16 documented as of this encounter"
--- OUTSIDE RECORDS SUMMARY | 2024-01-29 17:48 | External Medical Summary | Summary of Care ---
Author Name Unknown Organization [facility] Address [address] [facility] [place] [address] Phone [phone] Care Team Providers Care Stretch Machine Operator Name Role Phone Jocelyne Desai Primary Care Provider + [phone] Reason for Visit * Reason Comments Outpatient Testing Encounter Details Date Type Department Care Team (Late st Contact Info) Description 12/18/2023 12:30 PM EST Laboratory Laboratory [facility] [place] [address] [place] [phone] [facility] [address] [place] [address] Chronic atrial fibrillation (HCC); Anemia due to [...] [facility] for wound care [phone] Televideo if needed. Problem Noted Date Diagnosed [...] up with podiatry,. Letter in chart from [facility] podiatry they were unable to get [...] ICD-10 update of inactive term PLATT RESEARCH OTHER*[id number] 02/20/2007 ADVANCE DIRECTIVE INFORMATION 01/19/2005 Overview: Yes, [...] 11/17/19 23 LUMBAGO 12/24/2002 05/09/2007 LOC PRIM [id number] 12/24/200208/13 DEGENERATIVE SKIN DISORD 12/24/2002 VERTEBRAL FX [...] Department Care Team (Latest Contact Info) Description 12/18/2023 1:00 PM EST Office Visit Hematology/Oncolo gy Cely Zaldivar [place] [address] [place], [place] [address] Monse Brown MD [address] [place] [address] [place] [address] Arrived 12/18/2023 1:30 PM EST Immunization/Injection Hematology/Oncolo gy Treatment, [place] [address] [facility] [phone] Kayley, Chair [address] [place] [address] 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)*; Iron deficiency anemia due to chronic blood loss 12/19/2023 6:15 AM EST Anticoagulation [facility], Ilya Lafleur [address] [place] [address] [place] [address] Ccps, [address] [place] [address] 01/01/2024 10:30 AM EST Laboratory Laboratory [facility] [place] [address] [place] [phone] Kayley, Lab Scenery [address] [facility] [place] [address] 01/01/2024 11:00 AM EST Immunization/Injection Hematology/Oncolo gy Treatment, [place] [address] [facility], [place] [phone] Kayley, Chair 7 Hem On[address] [place] [address] 01/15/2024 10:20 AM EST Laboratory Laboratory [facility] [place] [address] [place] [phone] Kayley, Lab Scenery [address] [facility] [place] [address] 01/15/2024 11:00 AM EST Immunization/Injection Hematology/Oncolo gy [facility], [place] [facility] [address] Kayley, Chair [address] [place] [address] 01/19/2024 9:00 AM EST Office Visit Gastroenterology [address] [place] [address] Moon Avila, TANK FURNACE OPERATOR [address] [place] [address] 02/20/2024 12:30 PM EST Nurse Only Ancillary [address] [place] [address] [place], Nurse [address] [place] [address] 03/08/2024 2:30 PM EST Office Visit Family Medicine [address] [place] [phone] [place] [address] 04/16/2024 3:00 PM EST Office Visit Nephrology [address] [place] [address] Jennifer Agustin MD [address] [place] [address] Pending Results Name Type Priority Associated Diagnoses Date /Time PT INR Lab Routine Chronic atrial fibrillation (HCC) 12/18/2023 12:44 PM EST Scheduled Procedures Name Priority Associated [...] this encounter Medical Devices Implanted Type Area Hospice Manager Device Identifier Shelf Expiration Date Model / Serial / Lot Shaft Fibula 6cm [id number] - [id number] Implanted:Qty: 1 on 09/05/2008 at OR [facility] Tissue - Human N/A: Spine Cervical MUSCULOSKELETAL TRANSPLANT FND 04/20/2010 [id number] / [id number] / Stent Eso Gw 22x70 [id number] - [id number] Implanted:Qty: 1 on 01/21/2008 at OR [facility] N/A: Esophagus [employer] 04/12/2009 [id number] / / [id number] Depuy Uniplate 32 Implanted:Qty: 1 on 09/05/2008 at OR [facility] N/A: Spine Cervical TAMMY & TAMMY DEPUY 1897--[id number] / / Depuy Uniplate Screw 14mm Implanted:Qty: 2 on 09/05/2008 at OR [facility] N/A: Spine Cervical TAMMY & TAMMY DEPUY 189--017 / / Depuy Lordotic Bengal Cage Implanted:Qty: 1 on 05/07/2010 at OR [facility] N/A: Neck [id number] / [id number] / Plate Zach 3 Level Ti 54mm - [id number] Implanted:Qty: 1 on 05/07/2010 at OR [facility] N/A: Neck JNJ : DEPUY SPINE [id number] / / Screw Zach Const St Ti 14mm - [id number] Implanted:Qty: 4 on 05/07/2010 at OR [facility] N/A: Neck JNJ : DEPUY SPINE [id number] / / Screw 3.5x14 Mntr Fa [id number] - [id number] Implanted:Qty: 8 on 05/07/2010 at OR [facility] N/A: Spine Cervical JNJ : ETHICON CARDIOVATIONS [id number] / / Jarrell [id number] - [id number] Implanted:Qty: 1 on 05/07/2010 at OR [facility] N/A: Spine Cervical JNJ : ETHICON CARDIOVATIONS [id number] / / Screw Inner Mntr [id number] - [id number] Implanted:Qty: 8 on 05/07/2010 at OR [facility] N/A: Spine Cervical JNJ : ETHICON CARDIOVATIONS [id number] / / Envista Intraocular Lens Implanted:Qty: 1 on 03/10/2022 by Liang Marshall MD at OR [facility] Right: Eye BAUSCH & LOMB 08/13/2023 [id number] / [id number] / [id number] Envista Intraocular Lens Implanted:Qty: 1 on 03/24/2022 by Liang Marshall MD at OR [facility] Left: Eye BAUSCH & LOMB 07/13/2024 [id number] / [id number] / [id number] documented as of this encounter Procedures Procedure Name Priority Date/Time Associated Diagnosis Comments DIFFERENTIAL, AUTOMATED STAT 12/18/2023 12:44 PM EST 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) Iron deficiency anemia due to chronic blood loss CBC STAT 12/18/2023 12:44 PM EST 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) Iron deficiency anemia due to chronic blood loss CBC STAT 12/18/2023 12:44 PM EST 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) Iron deficiency anemia due to chronic blood loss documented in this encounter Results * (ABNORMAL) DIFFERENTIAL, AUTOMATED (12/18/2023 12:44 PM EST) WBC 3.79(L) 4.00 - 10.80 K/uL 12/18/2023 12:51 PM EST [facility] 56-02 Neutrophils % 60.4 40.0 - 75.0 % 12/18/2023 12:51 PM EST [facility] 56-02 Lymphocytes % 25.1 18.0 - 42.0 % 12/18/2023 12:51 PM EST [facility] 56-02 Monocytes % 10.0 1.0 - 11.0 % 12/18/2023 12:51 PM EST [facility] 56-02 Eosinophils % 4.5 0.0 - 6.0 % 12/18/2023 12:51 PM EST [facility] 56-02 Basophils % 0.0 0.0 - 2.0 % 12/18/2023 12:51 PM EST [facility] 56-02 Absolute Neutrophils 2.29 1.80 - 7.70 K/uL 12/18/2023 12:51 PM EST [facility] 56-02 Absolute Lymphocytes 0.95(L) 1.00 - 4.80 K/ul 12/18/2023 12:51 PM EST [facility] 56-02 Absolute Monocytes 0.38 0.00 - 1.10 K/uL 12/18/2023 12:51 PM EST [facility] 56-02 Absolute Eosinophils 0.17 0.00 - 0.70 K/uL 12/18/2023 12:51 PM EST [facility] 56 Absolute Basophils 0.00 0.00 - 0.20 K/uL 12/18/2023 12:51 PM [facility] Blood Venous blood specimen / Unknown Venipuncture / Unknown 12/18/2023 12:44 PM EST 12/18/2023 12:44 PM EST Monse Coates MD LAB BLOOD ORDERABLES [place] [address] [place] [address] * (ABNORMAL) CBC (12/18/2023 12:44 PM EST) WBC 3.79(L) 4.00 - 10.80 K/uL 12/18/2023 12:[address] RBC 3.43 4.50 - 5.25 M/uL 12/18/2023 12:[address] HGB 9.7(L) 14.0 - 16.8 g/dL 12/18/2023 12:51 PM [place] [address] HCT 31.9(L) 40.0 - 48.4 % 12/18/2023 12:[address] MCV 93.0 82.0 - 99.5 fL 12/18/2023 12:[address] MCH 28.3 27.0 - 34.0 pg 12/18/2023 12:[address] MCHC 30.4 32.0 - 36.0 g/dL 12/18/2023 12:51 PM [facility] 56 RDW 17.7 11.5 - 15.5 % 12/18/2023 12:51 PM [facility] 56 PLT 181 140 - 400 K/uL 12/18/2023 12:51 PM [facility] 56 MPV 9.7 6.6 - 11.1 fL 12/18/2023 12:51 PM [facility] 56 Blood Venous blood specimen / Unknown Venipuncture / Unknown 12/18/2023 12:44 PM EST 12/18/2023 12:44 PM EST Monse Coates MD LAB BLOOD ORDERABLES [facility] 56- [address] [place] [address] documented in this encounter Visit Diagnoses Diagnosis 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)- Primary Iron deficiency anemia due to chronic blood loss Iron deficiency anemia secondary to blood loss (chronic) Chronic atrial fibrillation (HCC) Atrial fibrillation 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) Iron deficiency anemia due to chronic blood loss Iron deficiency anemia secondary to blood loss (chronic) documented in this encounter Advance Directives Documents on File Type Date Recorded 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 No Care Teams Stretch Machine Operator Relationship Specialty Start Date End Date Jocelyne Desai DO [address] [place] [address] [place] [address] PCP - General Internal Medicine 11/09/16 documented as of this encounter
--- OUTSIDE RECORDS SUMMARY | 2024-01-29 17:48 | External Medical Summary ---
Author Name Unknown Address Unknown Organization K09[facility] [place] [address] Laboratory Report Ordering Provider Test Date Status DONNELL PRIETO 12/18/2023 12:44:06 Final Please draw PT/INR every 1-4 weeks or as requested by the [facility]

Warfarin Therapy
INR: 2.0-3.0 conventional anticoagulation
INR: 2.5-3.5 high intensity anticoagulation Observation Date Value Abnormality Reference (Units ) Status PT 12/18/2023 12:44:06 26.8 Above high normal 11 .6-15.2 (seconds) Final INR 12/18/2023 12:44:06 2.4 Above high normal 0. 8-1.2 Final Performing Location [facility] [address]
--- OUTSIDE RECORDS SUMMARY | 2024-01-29 17:49 | External Medical Summary | Summary of Care ---
Author Name Unknown Organization [facility] Address [address] [facility] [place] [address] Phone [phone] Care Team Providers Care Maintenance Department Technician Name Role Phone DesaiElissaJocelyne Briggs DO Primary Care Provider + [phone] Reason for Visit * Reason Comments Dosage Adjustment Via Phone (anticoag Cl inic) Encounter Details Date Type Department Care Team ([facility] st Contact Info) Description 12/13/2023 6:45 PM EDT Anticoagulation Centralized Clinical Pharmacy Services, Ilya Lafleur [address] [place] [address] [place] [address] [place] [address] Anticoagulation management encounter* Allergies No known active allergiesdocumented as of this encounter (statuses as of 12/13/2023) Medications Medication Sig Dispensed Refills Start Date [...] as of this encounter (statuses as of 12/13/2023) Active Problems Patient Care Coordination No te Formatting of this note migh t be different from the original. Good connectivity [facility] for wound care [phone] Televideo if needed. Problem Noted Date Diagnosed [...] podiatry,. 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 SPINAL STENOSIS-LUMBAR 09/23/2002 Vitamin D deficiency Cervical spinal stenosis documented as of this encounter (statuses as of 12/13/2023) Resolved Problems Problem Noted Date Diagnosed Date Resolved Date Chronic kidney disease (CKD) , stage IV (severe) 09/27/2023 10/26/2023 Depression, unspecified 11/09/202104/14 Depression, unspecified 11/09/202105/2022 Cellulitis of right leg 07/13/202105/2022 Last Assessment & Plan: Suspect this could be early/localized. Will treat with 7 days antibiotic. If pt cannot be reassess by Dr. Braxton office early next week will need [facility] provider recheck Multiple and open [...] 11/17/19 23 LUMBAGO 12/24/2002 05/09/2007 LOC PRIM [id number] 12/24/200208/13 DEGENERATIVE SKIN DISORD 12/24/2002 VERTEBRAL FX [...] as of this encounter (statuses as of 12/13/2023) Immunizations Name Administration Dates Next Due COVID-19 [...] as of this encounter Progress Notes * Madiha Lopez, agent producer - 12/13/2023 8:32 AM EDT Patient Phone Numbers Spoke with patient to schedule MTDM appointment for anticoag management. Patient going to lab on 12/17 for other blood work. Will have INR drawn then. F/u appointment scheduled as noted below. 12/19/2023 Madiha Lopez Network Design Architect [facility] [address] [place] [address] [place] [address] [id number] 12/13/2023,8:32 AM documented in this encounter Plan of Treatment Upcoming Encounters Date Type Department Care Team (Late st Contact Info) Description 12/18/2023 12:30 PM EST Laboratory Laboratory [facility] [place] [address] [place] [phone] [place] Lab [facility] [address] [place] [address] 12/18/2023 1:00 PM EST Office Visit Hematology/Oncology [facility] [place] [address] [place] [phone] Monse Coates MD [address] [place] [address] [place] [phone] 12/18/2023 1:30 PM EST Immunization/Injection Hematology/Oncology Treatment, [place] [address] [place] [phone] Kayley, Chair 7 Hem Onc [address] [place] [address] 12/19/2023 6:15 AM EST Anticoagulation [facility], Ilya Lafleur [address] [place] [address] [place] [address] [facility], [address] [place] [address] 12/25/2023 10:30 AM EST Laboratory Laboratory [facility] [place] [address] [place] [address] Kayley, Lab Scen[address] [place] [place] [address] 01/19/2024 9:00 AM EST Office Visit Gastroenterology [address] [place] [address] Moon Avila CRNP [address] [place] [address] 02/20/2024 12:30 PM EST Nurse Only Ancillary [address] [place] [address] Moval[place], Nurse [address] [place] [address] 03/08/2024 2:30 PM EST Office Visit Family Medicine [address] [place] [phone] [address] [place] [address] 04/16/2024 3:00 PM EST Office Visit Nephrology [address] [place] [address] Jennifer Agustin MD [address] [place] [address] Scheduled Procedures Name Priority Associated Diagnoses Date/Ti [...] encounter Medical Devices Implanted Type Area Licensed Veterinary Technician Device Identifier Shelf Expiration Date Model / Serial / Lot Shaft Fibula 6cm [id number] - [id number] Implanted:Qty: 1 on 09/05/2008 at [place] [facility] Tissue - Human N/A: Spine Cervical MUSCULOSKELETAL TRANSPLANT FND 04/20/2010 [id number] / [id number] / Stent Eso Gw 22x70 [id number] - [id number] Implanted:Qty: 1 on 01/21/2008 at OR [facility] N/A: Esophagus ALVEOLUS INC 04/12/2009 38213-630 / / [id number] Depuy Uniplate 32 Implanted:Qty: 1 on 09/05/2008 [...] [facility] N/A: Neck 1773--146 / [id number] / Plate Zach 3 Level Ti 54mm - [id number] Implanted:Qty: 1 on 05/07/2010 at OR [facility] N/A: Neck JNJ : DEPUY SPINE [id number] / / Screw Zach Const St Ti 14mm - [id number] Implanted:Qty: 4 on 05/07/2010 at OR [facility] N/A: Neck JNJ : DEPUY SPINE [id number] / / Screw 3.5x14 Mntr Fa [id number] - [id number] Implanted:Qty: 8 on 05/07/2010 at OR [facility] N/A: Spine Cervical JNJ : ETHICON [employer] [id number] / / Jarrell [id number] - [id number] Implanted:Qty: 1 on 05/07/2010 at OR [facility] N/A: Spine Cervical JNJ : ETHICON CARDI[employer]ATIONS [id number] / / Screw Inner Mntr [id number] - [id number] Implanted:Qty: 8 on 05/07/2010 at OR [facility] N/A: Spine Cervical JNJ : ETHICON CARDIOVATIONS [id number] / / Envista Intraocular Lens Implanted:Qty: 1 on 03/10/2022 by Liang Marshall MD at OR [facility] Right: Eye BAUSCH & LOMB 08/13/2023 [id number] / [id number] / [id number] Envista Intraocular Lens Implanted:Qty: 1 on 03/24/2022 by Liang Marshall MD at OR [facility] Left: Eye BAUSCH & LOMB 07/13/2024 [id number] / [id number] / [id number] documented as of this encounter Visit Diagnoses Diagnosis Anticoagulation management encounter- Primary Encounter for therapeutic drug monitoring documented in this encounter Advance Directives Documents on File Type Date Recorded 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 No Care Teams Maintenance Department Technician Relationship Specialty Start Date End Date Jocelyne Desai DO [address] [place] [address] [place] [address] PCP - General Internal Medicine 11/09/16 documented as of this encounter
--- OUTSIDE RECORDS SUMMARY | 2024-01-29 17:49 | External Medical Summary | Summary of Care ---
Author Name Unknown Organization [facility] Address [address] [facility] [place] [address] Phone [phone] Care Team Providers Care Stage Electrician Helper Name Role Phone Jocelyne Desai Primary Care Provider [phone] Reason for Visit * Reason Onset Date Comments Appointment 12/04/2023 Encounter Details Date Type Department Care Team ([facility] st Contact Info) Description 12/04/2023 Telephone Hematology/Oncology [facility] [place] [address] [facility] [address] Monse Coates MD [address] [facility] [place] [address] Appointment Allergies No known active allergiesdocumented as of this encounter (statuses as of 12/07/2023) Medications Medication Sig Dispensed Refills Start Date [...] as of this encounter (statuses as of 12/07/2023) Active Problems Patient Care Coordination No te Formatting of this note migh t be different from the original. Good connectivity [facility] for wound care [phone] Televideo if needed. Problem Noted Date Diagnosed [...] podiatry,. Letter in chart from [facility] podiatry they were unable [...] ICD-10 update of inactive term PLATT RESEARCH OTHER*[id number] 02/20/2007 ADVANCE DIRECTIVE INFORMATION 01/19/2005 Overview: Yes, Patient instructed to provide copy of advance directive for provider to review and to be scanned into Electronic Medical Record No, Advance Directive brochure given to patient at prior appointment. SPINAL STENOSIS-LUMBAR 09/23/2002 Vitamin D deficiency Cervical spinal stenosis documented as of this encounter (statuses as of 12/07/2023) Resolved Problems Problem Noted Date Diagnosed Date [...] 11/17/19 23 LUMBAGO 12/24/2002 05/09/2007 LOC PRIM [id number] 12/24/200208/13 DEGENERATIVE SKIN DISORD 12/24/2002 VERTEBRAL FX [...] as of this encounter (statuses as of 12/07/2023) Immunizations Name Administration Dates Next Due COVID-19 [...] encounter Miscellaneous Notes * Telephone Encounter - Nidia Armstrong OSA - 12/07/2023 1:50 PM EDT Pt has ghp and auth is based on the [facility]. No new auth needed * Telephone Encounter - Cara Morales OSA - 12/07/2023 12:19 PM EDT Updated and pts apt was canceled and pt is aware * Telephone Encounter - Josafat Jeffers RN - 12/07/2023 12:05 PM EDT Alteration placed to give 20,000units Retacrit biweekly. Pre-cert - Last note I see in regards to Retacrit was patient want to wait on FA from 11/13, pt received this on 12/03. Does every other week need to re- authorized with insurance? Scheduling- please call patient to inform of the following: - Cancelling his Retacrit and lab appointment on 12/11/23 - Will keep his appointments as is on 12/18/23 as he will proceed with Retacrit every [address] Coates. Thank you. * Telephone Encounter - Josafat Jeffers RN - 12/04/2023 3:[address] Coates- please clarify frequency of Retacrit 20,000units. * Telephone Encounter - Adenike Shaw LPN - 12/04/2023 2:53 PM EDT Called patient to advise that he needs to come every week for the Retacrit and he advised that she had said that his dose will be doubled today so he would not have to come every week. Please clarify and advise patient if different than the 2 week retacrit. documented in this encounter Plan of Treatment Upcoming Encounters Date Type Department Care Team (Late st Contact Info) Description 12/13/2023 6:45 PM EDT Anticoagulation Centralized Clinical Pharmacy Services, Ilya Lafleur [address] [place] [address] [place] [address] [facility], [address] [place] [address] 12/18/2023 12:30 PM EST Laboratory Laboratory [facility] [place] [address] [place] [phone] [place], Lab Scenery [address] [place] [address] 12/18/2023 1:00 PM EST Office Visit Hematology/Oncology [facility] [place] [address] [place] [phone] Monse Coates MD [address] [place] [address] [place] [phone] 12/18/2023 1:30 PM EST Immunization/Injection Hematology/Oncology Treatment, [place] [address] [place] [address] Kayley, Chair 7 Hem Onc [facility] [place] [address] 12/25/2023 10:30 AM EST Laboratory Laboratory [facility] [place] [address] [place] [phone] [place], Lab [facility] [address] [facility] [place] [address] 01/19/2024 9:00 AM EST Office Visit Gastroenterology [address] [place] [address] Moon Avila CRNP [address] [place] [address] 02/20/2024 12:30 PM EST Nurse Only Ancillary [address] [place] [address] Mon[place], Nurse [facility] [address] [place] [address] [place] [address] 03/08/2024 2:30 PM EST Office Visit Family Medicine [address] [place] [phone] Jocelyne Desai, [address] [place] [address] 04/16/2024 3:00 PM EST Office Visit Nephrology [address] [place] [address] Jennifer Agustin MD [address] [facility] [place] [address] Scheduled Procedures Name Priority Associated Diagnoses Date/Ti [...] this encounter Medical Devices Implanted Type Area Docket Clerk Device Identifier Shelf Expiration Date Model / Serial / Lot Shaft Fibula 6cm [id number] - [id number] Implanted:Qty: 1 on 09/05/2008 [place] [facility] Tissue - Human N/A: Spine Cervical MUSCULOSKELETAL TRANSPLANT FND 04/20/2010 [id number] / [id number] / Stent Eso Gw 22x70 [id number] - [id number] Implanted:Qty: 1 on 01/21/2008 at [place] [facility] [place] N/A: Esophagus [employer] 04/12/2009 [id number] / / [id number] Depuy Uniplate 32 Implanted:Qty: 1 on 09/05/2008 [...] Plate Zach 3 Level Ti 54mm - [id number] Implanted:Qty: 1 on 05/07/2010 at [place] [facility] N/A: Neck JNJ : DEPUY SPINE [id number] / / Screw Zach Const St Ti 14mm - [id number] Implanted:Qty: 4 on 05/07/2010 at [place] [facility] [place] N/A: Neck JNJ : DEPUY SPINE [id number] / / Screw 3.5x14 Mntr Fa [id number] - [id number] Implanted:Qty: 8 on 05/07/2010 at [place] [facility] [place] N/A: Spine Cervical JNJ : ETHICON CARDIOVATIONS [id number] / / Jarrell [id number] - [id number] Implanted:Qty: 1 on 05/07/2010 at [place] [facility] [place] N/A: Spine Cervical JNJ : ETHICON CARDIOVATIONS [id number] / / Screw Inner Mntr [id number] - [id number] Implanted:Qty: 8 on 05/07/2010 at [place] [facility] [place] N/A: Spine Cervical JNJ : ETHICON CARDIOVATIONS [id number] / / Envista Intraocular Lens Implanted:Qty: 1 on 03/10/2022 by Liang Marshall MD at OR [facility] Right: Eye BAUSCH & LOMB 08/13/2023 [id number] / [id number] / [id number] Envista Intraocular Lens Implanted:Qty: 1 on 03/24/2022 by Liang Marshall MD at OR [facility] Left: Eye BAUSCH & LOMB 07/13/2024 [id number] / [id number] / [id number] documented as of this encounter Advance Directives Documents on File Type Date Recorded 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 [...] Power of Attor andrew? No Care Teams Stage Electrician Helper Relationship Specialty Start Date End Date Jocelyne Desai DO [address] [place] [address] [place] [address] PCP - General Internal Medicine 11/09/16 documented as of this encounter
--- OUTSIDE RECORDS SUMMARY | 2024-01-29 17:49 | External Medical Summary | Summary of Care ---
Author Name Unknown Organization [facility] Address [address] [facility] [place] [address] Phone [phone] Care Team Providers Care Farm Instructor Name Role Phone Jocelyne Desai Primary Care Provider [phone] Reason for Visit * Reason Onset Date Comments Appointment 12/04/2023 Encounter Details Date Type Department Care Team ([facility] st Contact Info) Description 12/04/2023 Telephone Hematology/Oncology [facility] [place] [address] [facility] [address] Monse Coates MD 400 [facility] [place] [address] Appointment Allergies No known active [...] disease, chronic, stage IV (GFR 15-29 ml/min) ([facility]) Take 1 Tablet by mouth in the morning and 1 Tablet before bedtime. 120 Tablet 3 11/30/2023 Active documented as of this encounter (statuses as of 12/07/2023) Active Problems Patient Care Coordination No te Formatting of this note migh t be different from the original. Good connectivity [facility] for wound care [phone] Televideo if needed. Problem Noted Date Diagnosed [...] up with podiatry,. Letter in chart from [facility] podiatry they were unable [...] ICD-10 update of inactive term PLATT RESEARCH OTHER*[id number] 02/20/2007 ADVANCE DIRECTIVE INFORMATION 01/19/2005 Overview: Yes, [...] [place] office early next week will need [facility] provider recheck Multiple and open [...] 11/17/19 23 LUMBAGO 12/24/2002 05/09/2007 LOC PRIM [id number] 12/24/200208/13 DEGENERATIVE SKIN DISORD 12/24/2002 VERTEBRAL FX [...] Miscellaneous Notes * Telephone Encounter - Cara Morales OSA [...] Anticoagulation Centralized Clinical Pharmacy Services, Ilya Lafleur [address] [place] [address] [place] [address] [facility], [address] [place] [address] 12/18/2023 12:30 PM EST Laboratory Laboratory Scenery [facility] [address] [place] [phone] [place], Lab Scenery [address] [place] [address] 12/18/2023 1:00 PM EST Office [facility] [address] [place] [phone] Monse Coates MD [address] [place] [address] [place] [phone] 12/18/2023 1:30 PM EST Immunization/Injection Hematology/Oncology [facility], [place] [address] [place] [phone] Kayley, Chair 7 Hem Onc [place] [address] [place] [address] 12/25/2023 10:30 AM EST Laboratory Laboratory [facility] [place] [address] [place] [phone] [place], Lab Scenery [address] [place] [address] 01/19/2024 9:00 AM EST Office Visit Gastroenterology [address] [place] [address] Moon Avila CRNP [address] [facility] [place] [address] 02/20/2024 12:30 PM EST Nurse Only Ancillary [address] [place] [address] Lesteralley, Nurse [address] [place] [address] 03/08/2024 2:30 PM EST Office Visit Family Medicine [address] [place] [phone] Desai Jocelyne Briggs[address] [place] [address] 04/16/2024 3:00 PM EST Office Visit Nephrology [address] [place] [address] Jennifer Agustin MD [address] [place] [address] Scheduled Procedures Name Priority Associated Diagnoses Date/Ti [...] this encounter Medical Devices Implanted Type Area Sewer Line Repairer Device Identifier Shelf Expiration Date Model / Serial / Lot Shaft Fibula 6cm [id number] - [id number] Implanted:Qty: 1 on 09/05/2008 [place] [facility] Tissue - Human N/A: Spine Cervical MUSCULOSKELETAL TRANSPLANT FND 04/20/2010 [id number] / [id number] 0P / Stent Eso Gw 22x70 72718-885 - [id number] Implanted:Qty: 1 on 01/21/2008 at [place] [facility] N/A: Esophagus [employer] 04/12/2009 38663-794 / / [id number] Depuy Uniplate 32 Implanted:Qty: 1 on 09/05/2008 [...] Plate Zach 3 Level Ti 54mm - [id number] Implanted:Qty: 1 on 05/07/2010 at [place] [facility] N/A: Neck JNJ : DEPUY SPINE [id number] / / Screw Zach Const St Ti 14mm - [id number] Implanted:Qty: 4 on 05/07/2010 at [place] [facility] N/A: Neck JNJ : DEPUY SPINE [id number] 14 / / Screw 3.5x14 Mntr Fa [id number] - [id number] Implanted:Qty: 8 on 05/07/2010 at [place] [facility] N/A: Spine Cervical JNJ : ETHICON CARDIOVATIONS [id number] / / Jarrell [id number] - [id number] Implanted:Qty: 1 on 05/07/2010 at [place] [facility] N/A: Spine Cervical JNJ : ETHICON CARDIOVATIONS [id number] / / Screw Inner Mntr [id number] - [id number] Implanted:Qty: 8 on 05/07/2010 at [place] [facility] N/A: Spine Cervical JNJ : ETHICON CARDIOVATIONS [id number] / / Envista Intraocular Lens Implanted:Qty: 1 on 03/10/2022 by Liang Marshall MD at OR [facility] Right: Eye BAUSCH & LOMB 08/13/2023 [id number] / [id number] / [id number] Envista Intraocular Lens Implanted:Qty: 1 on 03/24/2022 by Liang Marshall MD at OR [facility] Left: Eye BAUSCH & LOMB 07/13/2024 [id number] / [id number] / [id number] documented as of this encounter Advance Directives Documents on File Type Date Recorded Patient Shade Maker Expl srinivas ARREOLA 01/26/2021 [place] OR [facility] [...] Power of Attor andrew? No Care Teams Farm Instructor Relationship Specialty Start Date End Date Jocelyne Desai DO [address] [place] [address] [place] [address] PCP - General Internal Medicine 11/09/16 documented as of this encounter
--- OUTSIDE RECORDS SUMMARY | 2024-01-29 17:49 | External Medical Summary | Summary of Care ---
Author Name Unknown Organization [facility] Address [address] [facility] [address] Phone [phone] Care Team Providers Care Projection Welding Machine Operator Name Role Phone Jocelyne Desai Primary Care Provider [phone] Encounter Details Date Type Department Care Team (Late st Contact Info) Description 12/07/2023 Orders Only Hematology/Oncology [facility] [place] [facility] [address] Monse Coates MD 400 [facility] [place] [address] Allergies No known active allergiesdocumented as [...] stage IV (GFR 15-29 ml/min) ([facility]) Take 1 Tablet by mouth in the morning and 1 Tablet before bedtime. 120 Tablet 3 11/30/2023 Active documented as of this encounter (statuses as of 12/07/2023) Active Problems Patient Care Coordination No te Formatting of this note migh t be different from the original. Good connectivity [facility] for wound care [phone] Televideo if needed. Problem Noted Date Diagnosed [...] chart from [facility] podiatry they were unable to get [...] ICD-10 update of inactive term PLATT RESEARCH OTHER*[id number] 02/20/2007 ADVANCE DIRECTIVE INFORMATION 01/19/2005 Overview: Yes, [...] [place] office early next week will need [facility] provider recheck Multiple and open wound [...] 11/17/19 23 LUMBAGO 12/24/2002 05/09/2007 LOC PRIM [id number] 12/24/200208/13 DEGENERATIVE SKIN DISORD 12/24/2002 VERTEBRAL FX [...] mRNA, LNP-s, No Pre serve, 2-Dose Series ([employer]) 02/16/2021,04/09/2020,03/19/2020 COVID-19, MRNA-LNP, 23-24, P F, 30 [...] Anticoagulation Centralized Clinical Pharmacy Services, Ilya Lafleur [address] [place] [address] [place] [address] [place] [address] 12/18/2023 12:30 PM EST Laboratory Laboratory Scenery [place] [address] [place] [phone] Kayley, Lab Scenery [address] [place] [address] 12/18/2023 1:00 PM EST Office [facility] [place] [address] [place] [phone] Monse Coates MD [address] [place] [address] [place] [address] 12/18/2023 1:30 PM EST Immunization/Injection Hematology/Oncology Treatment, [place] [address] [place] [phone] Kayley, Chair 7 Hem Onc [place] [address] [place] [address] 12/25/2023 10:30 AM EST Laboratory Laboratory [facility] [place] [address] [place] [phone] Kayley, Lab Scenery [address] [place] [address] 01/19/2024 9:00 AM EST Office Visit Gastroenterology [address] [place] [address] Moon Avila CRNP [address] [place] [address] 02/20/2024 12:30 PM EST Nurse Only Ancillary [address] [place] [address] Marleeey, Nurse [address] [place] [address] 03/08/2024 2:30 PM EST Office Visit Family Medicine [address] [place] [phone] Jocelyne Desai, [address] [place] [address] 04/16/2024 3:00 PM EST Office Visit Nephrology [address] [place] [address] Jennifer Agustin MD 200 [facility] [place] [address] Scheduled Procedures Name Priority Associated Diagnoses Date/Ti [...] this encounter Medical Devices Implanted Type Area Overseamer Device Identifier Shelf Expiration Date Model / Serial / Lot Shaft Fibula 6cm [id number] - [id number] Implanted:Qty: 1 on 09/05/2008 at [place] [facility] Tissue - Human N/A: Spine Cervical MUSCULOSKELETAL TRANSPLANT FND 04/20/2010 [id number] / [id number] 0P / Stent Eso Gw 22x70 [id number] - [id number] Implanted:Qty: 1 on 01/21/2008 at [place] [facility] N/A: Esophagus [employer]US INC 04/12/2009 99092-405 / / [id number] Depuy Uniplate 32 Implanted:Qty: 1 on 09/05/2008 [...] Plate Zach 3 Level Ti 54mm - [id number] Implanted:Qty: 1 on 05/07/2010 at [place] [facility] N/A: Neck JNJ : DEPUY SPINE [id number] 54 / / Screw Zach Const St Ti 14mm - [id number] Implanted:Qty: 4 on 05/07/2010 at [place] [facility] [place] N/A: Neck JNJ : DEPUY SPINE [id number] 14 / / Screw 3.5x14 Mntr Fa [id number] - [id number] Implanted:Qty: 8 on 05/07/2010 at [place] [facility] [place] N/A: Spine Cervical JNJ : ETHICON CARDIOVATIONS [id number] / / Jarrell [id number] - [id number] Implanted:Qty: 1 on 05/07/2010 at [place] [facility] N/A: Spine Cervical JNJ : ETHICON CARDIOVATIONS [id number] / / Screw Inner Mntr [id number] - [id number] Implanted:Qty: 8 on 05/07/2010 at [place] [facility] [place] N/A: Spine Cervical JNJ : ETHICON CARDIOVATIONS [id number] / / Envista Intraocular Lens Implanted:Qty: 1 on 03/10/2022 by Liang Marshall MD at [place] [facility] Right: Eye BAUSCH & LOMB 08/13/2023 [id number] / [id number] / [id number] Envista Intraocular Lens Implanted:Qty: 1 on 03/24/2022 by Liang Marshall MD at OR [facility] Left: Eye BAUSCH & LOMB 07/13/2024 [id number] / [id number] / [id number] documented as of this encounter Advance Directives Documents on File Type Date Recorded Patient Caustic Preparer Expl anation POLST 01/26/2021 [place] OR [facility] [...] patient have Health Care Power of Attor anderw? No Care Teams Projection Welding Machine Operator Relationship Specialty Start Date End Date Jocelyne Desai DO [address] [place] [address] [place] [address] PCP - General Internal Medicine 11/09/16 documented as of this encounter
--- OUTSIDE RECORDS SUMMARY | 2024-01-29 17:49 | External Medical Summary | Summary of Care ---
Author Name Unknown Organization [facility] Address [address] [facility] [place] [address] Phone [phone] Care Team Providers Care Assistant Professor Of Criminal Justice Name Role Phone Jocelyne Desai Primary Care Provider [phone] Reason for Visit * Reason Comments Follow Up Treatment Encounter Details Date Type Department Care Team ([facility] st Contact Info) Description 12/04/2023 10:00 AM EDT Office Visit Hematology/Oncology [facility] [place] [address] [facility] [phone] Monse Coates MD [address] [place] [address] 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)* Allergies No known active allergiesdocumented as of this encounter (statuses as of 12/12/2023) Medications Medication Sig Dispensed Refills Start Date [...] stage IV (GFR 15-29 ml/min) ([facility]) Take 1 Tablet by mouth in the morning and 1 Tablet before bedtime. 120 Tablet 3 11/30/2023 Active documented as of this encounter (statuses as of 12/12/2023) Active Problems Patient Care Coordination No te Formatting of this note migh t be different from the original. Good connectivity [facility] for wound care [phone] Televideo if needed. Problem Noted Date Diagnosed [...] with podiatry,. Letter in chart from [facility] podiatry they were unable to [...] ICD-10 update of inactive term PLATT RESEARCH OTHER*[id number] 02/20/2007 ADVANCE DIRECTIVE INFORMATION 01/19/2005 Overview: Yes, Patient instructed to provide copy of advance directive for provider to review and to be scanned into Electronic Medical Record No, Advance Directive brochure given to patient at prior appointment. SPINAL STENOSIS-LUMBAR 09/23/2002 Vitamin D deficiency Cervical spinal stenosis documented as of this encounter (statuses as of 12/12/2023) Resolved Problems Problem Noted Date Diagnosed Date Resolved Date Chronic kidney disease (CKD) , stage IV (severe) 09/27/2023 10/26/2023 Depression, unspecified 11/09/202104/14 Depression, unspecified 11/09/202105/2022 Cellulitis of right leg 07/13/202105/2022 Last Assessment & Plan: Suspect this could be early/localized. Will treat with 7 days antibiotic. If pt cannot be reassess by Dr. Braxton office early next week will need [facility] provider recheck Multiple and open [...] 11/17/19 23 LUMBAGO 12/24/2002 05/09/2007 LOC PRIM [id number] 12/24/200208/13 DEGENERATIVE SKIN DISORD 12/24/2002 VERTEBRAL FX [...] as of this encounter (statuses as of 12/12/2023) Immunizations Name Administration Dates Next Due COVID-19 [...] Sign Reading Time Taken Comments Blood Pressure 130/82 12/04/2023 10:11 AM EDT Pulse 91 12/04/2023 10:11 AM EDT Temperature 36.2 C (97.2 F) 12/04/2023 10:11 AM E DT Respiratory Rate - - Oxygen Saturation 100% 12/04/2023 10:11 AM EDT Inhaled Oxygen Concentration - - Weight 93 kg (205 lb) 12/04/2023 10:11 AM EDT Height - - Body Mass Index 28.59 11/06/2023 1:54 PM EDT documented in this encounter Progress Notes * Monse Coates MD - 12/04/2023 10:55 AM EDT Date of visit: 12/04/2023 Chief Complaint Patient presents with Follow Up Treatment HPI: Lg Cooley is a 73 year old male follow up re anemia with CKD Subjective Lg Cooley is a 73 year old male, presents for follow up on 11/20/2023. Chief Complaint Patient presents with Follow Up 2 week follow up HPI: Lg Cooley is a 73 year old male seen for Hematology-Oncology consultation on 11/06/2023 for further evaluation of anemia. His labs performed on 11/01/2023 shows hemoglobin 8.7 grams/deciliter,hematocrit 28%, MCV 93.6 (within normal limits), RDW 19% (higher than the normal range of 11.5-15.5%) and retic count 1.2%. WBC and platelet count within normal limits. Iron panel shows evidence of iron deficiency with serum iron 25, TIBC 300, TSAT 8% (normal range 15-55%), ferritin 121. Patient has a history of persistent iron-deficiency. Vitamin B12 and folate normal. Patient has [...] presents today to start PROCRIT/ RETACRIT treatment today on 11/20/2023. PMH, current medications, allergies, labs were reviewed with the patient. Review of Systems Constitutional: Negative. Respiratory: Negative. Cardiovascular: Positive for leg swelling. BLE edema to knees Gastrointestinal: Negative. Genitourinary: Negative. Skin: Positive for wound. Pt follows with wound clinic, has home nursing for dressing changes. Neurological: Negative. Objective BP 147/91 (BP Site: Left Arm, BP Position: Sitting, BP Cuff Size: Regular) | Pulse 100 | Temp 36.3 C (97.4 F) (Tympanic) | Wt 96.6 kg (213 lb) | SpO2 98% | BMI 29.71 kg/m | BSA 2.2 m Physical Exam Constitutional: Appearance: Normal appearance. Cardiovascular: Rate and Rhythm: Normal rate and regular rhythm. Pulmonary: Effort: Pulmonary effort is normal. Breath sounds: Normal breath sounds. Musculoskeletal: Right lower leg: Edema present. Left lower leg: Edema present. Comments: Trace bilat LE edema; venous stasis dermatitis; right calf wound dressing c/d/i Neurological: Mental Status: He is alert. PMH: Patient Active Problem List Diagnosis SPINAL STENOSIS-LUMBAR ADVANCE DIRECTIVE INFORMATION Vitamin D deficiency Cervical spinal stenosis Type 2 diabetes mellitus with hemoglobin A1c goal of less than 7.5% ([facility]) HTN, goal below 140/90 DYSLIPIDEMIA, GOAL LDL BELOW 100 PLATT RESEARCH OTHER*[id number] Erectile dysfunction DM neuropathy, type II diabetes [...] [facility]) Persistent proteinuria H/O gastric bypass skilled nursing current use of 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 Complex sleep apnea syndrome Nocturnal hypoxemia Type 2 diabetes mellitus with stage 3b chronic kidney disease, without long-term current use of insulin ([facility]) Sleep apnea treated with nocturnal BiPAP Hyperparathyroidism, secondary renal ([facility]) Diabetes [...] layer exposed ([facility]) History of [place] (myocardial infarction) Trigger ring finger of left hand Full code status Calculus of gallbladder without cholecystitis without obstruction Stasis ulcer ([facility]) MRSA (methicillin resistant Staphylococcus aureus) Orthostatic hypotension Pressure injury of buttock, stage 2 ([facility]) Atrial fibrillation ([facility]) SVT (supraventricular tachycardia) ([facility]) Anemia due to stage 4 chronic kidney disease ([facility]) Iron deficiency anemia due to chronic blood [...] allergies indicates: No Known Allergies Review of Systems Constitutional: Negative. Respiratory: Negative. Cardiovascular: Positive for leg swelling. BLE edema to knees Gastrointestinal: Negative. Genitourinary: Negative. Skin: Positive for wound. Pt follows with wound clinic, has home nursing for dressing changes. Neurological: Negative. Objective BP 130/82 (BP Site: Left Arm, BP Position: Sitting, BP Cuff Size: Large) | Pulse 91 | Temp 36.2 C(97.2 F) (Tympanic) | Wt 93 kg (205 lb) | SpO2 100% | BMI 28.59 kg/m | BSA 2.16 m Physical Exam Constitutional: Appearance: Normal appearance. Cardiovascular: Rate and Rhythm: Normal rate and regular rhythm. Pulmonary: Effort: Pulmonary effort is normal. Breath sounds: Normal breath sounds. Musculoskeletal: Right lower leg: Edema present. Left lower leg: Edema present. Comments: Trace bilat LE edema; venous stasis dermatitis; right calf wound dressing c/d/i Neurological: Mental Status: He is alert. ASSESSMENT/PLAN: Anemia CKD Stat CBC today Return [...] weeks with labs same day for retacrit Monse Coates MD documented in this encounter Nursing Notes * Zahra Heard, MED ASSIST - 12/04/2023 10:13 AM EDT Patient identifed by name and birthdate Do you have any concerns about pain management for today's visit? Yes. Patient instructed to discuss pain concerns with provider during the visit today Living Will or Advance Directive for Health Care as noted on the problem list. [facility] is a way you can talk to your provider on line through e-mail. Would you like to sign up? I can activate it for you? ALREADY ACTIVE Filed Vitals: 12/04/23 1011 BP: 130/82 Pulse: 91 Temp: 36.2 C (97.2 F) TempSrc: Tympanic SpO2: 100% Weight: 93 kg (205 lb) Patient was instructed to not get [...] PM EDT Anticoagulation [facility], Holtlillie Lafleur [address] [place] [address] [place] [address] [facility], [address] [place] [address] 12/18/2023 12:30 PM EST Laboratory Laboratory [place] [address] [place] [phone] [place] [address] [place] [address] 12/18/2023 1:00 PM EST Office Visit Hematology/Oncology [place] [address] [place] [phone] Monse Coates MD [address] [place] [address] [place] [phone] 12/18/2023 1:30 PM EST Immunization/Injection Hematology/Oncology Treatment, [place] [address] [place] [phone] Kay[place], Chair 7 Hem Onc Scenery [address] [place] [address] 12/25/2023 10:30 AM EST Laboratory Laboratory [facility] [place] [address] [place] [phone] [place], Lab Scenery [address] [place] [address] 01/19/2024 9:00 AM EST Office Visit Gastroenterology [address] [place] [address] Moon Avila CRNP [address] [place] [address] 02/20/2024 12:30 PM EST Nurse Only Ancillary [address] [place] [address] [place], Nurse Annual [address] [place] [address] 03/08/2024 2:30 PM EST Office Visit Family Medicine [address] [place] [phone] [place] [address] 04/16/2024 3:00 PM EST Office Visit Nephrology [address] [place] [address] Jennifer Agustin MD [address] [place] [address] Scheduled Procedures Name Priority Associated Diagnoses Date/Ti [...] this encounter Medical Devices Implanted Type Area Termination Clerk Device Identifier Shelf Expiration Date Model / Serial / Lot Shaft Fibula 6cm [id number] - [id number] Implanted:Qty: 1 on 09/05/2008 at [facility] Tissue - Human N/A: Spine Cervical MUSCULOSKELETAL TRANSPLANT FND 04/20/2010 [id number] / [id number] / Stent Eso Gw 22x70 [id number] - [id number] Implanted:Qty: 1 on 01/21/2008 at OR [facility] N/A: Esophagus [employer] 04/12/2009 [id number] / / [id number] Depuy Uniplate 32 Implanted:Qty: 1 on 09/05/2008 [facility] N/A: Neck [id number] / [id number] / Plate Zach 3 Level Ti 54mm - [id number] Implanted:Qty: 1 on 05/07/2010 at OR [facility] N/A: Neck JNJ : DEPUY SPINE [id number] / / Screw Zach Const St Ti 14mm - [id number] Implanted:Qty: 4 on 05/07/2010 at OR [facility] N/A: Neck JNJ : DEPUY SPINE [id number] / / Screw 3.5x14 Mntr Fa [id number] - [id number] Implanted:Qty: 8 on 05/07/2010 at OR [facility] N/A: Spine Cervical JNJ : [employer] [id number] / / Jarrell [id number] - [id number] Implanted:Qty: 1 on 05/07/2010 at OR [facility] N/A: Spine Cervical JNJ : [employer] [id number] / / Screw Inner Mntr [id number] - [id number] Implanted:Qty: 8 on 05/07/2010 at OR [facility] N/A: Spine Cervical JNJ : [employer] [id number] / / Envista Intraocular Lens Implanted:Qty: 1 on 03/10/2022 by JoannaLiang valladares MD at OR [facility] Right: Eye BAUSCH & LOMB 08/13/2023 [id number] / [id number] / [id number] Envista Intraocular Lens Implanted:Qty: 1 on 03/24/2022 by Liang Marshall MD at OR [facility] Left: Eye BAUSCH & LOMB 07/13/2024 [id number] / [id number] / [id number] documented as of this encounter Visit Diagnoses Diagnosis 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)- Primary documented in this encounter Advance Directives Documents on File Type Date Recorded Patient Field Map Editor Expl anation POLST 01/26/2021 [place] [...] of Attor andrew? No Care Teams Assistant Professor Of Criminal Justice Relationship Specialty Start Date End Date Jocelyne Desai DO [address] [place] [address] [place] [address] PCP - General Internal Medicine 11/09/16 documented as of this encounter"
--- OUTSIDE RECORDS SUMMARY | 2024-01-29 17:49 | External Medical Summary | Summary of Care ---
Author Name Unknown Organization [facility] Address [address] [facility] [place] [address] Phone [phone] Care Team Providers Care Route Service Representative Name Role Phone Jocelyne Desai DO Primary Care Provider + [phone] Encounter Details Date Type Department Care Team (Late st Contact Info) Description 12/14/2023 Population Health External Data Unspecified Department Allergies No known active allergiesdocumented as of this encounter (statuses as of 12/14/2023) Medications Medication Sig Dispensed Refills Start Date [...] disease, chronic, stage IV (GFR 15-29 ml/min) ([facility]) Take 1 Tablet by mouth in the morning and 1 Tablet before bedtime. 120 Tablet 3 11/30/2023 Active documented as of this encounter (statuses as of 12/14/2023) Active Problems Patient Care Coordination No te Formatting of this note migh t be different from the original. Good connectivity [facility] for wound care [phone] Televideo if needed. 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 He has significant history DM and PVD and recommended he still follow up with podiatry,. Letter in chart from [facility] podiatry they were unable [...] ICD-10 update of inactive term PLATT RESEARCH OTHER*[id number] 02/20/2007 ADVANCE DIRECTIVE INFORMATION 01/19/2005 Overview: Yes, Patient instructed to provide copy of advance directive for provider to review and to be scanned into Electronic Medical Record No, Advance Directive brochure given to patient at prior appointment. SPINAL STENOSIS-LUMBAR 09/23/2002 Vitamin D deficiency Cervical spinal stenosis documented as of this encounter (statuses as of 12/14/2023) Resolved Problems Problem Noted Date Diagnosed Date Resolved Date Chronic kidney disease (CKD) , stage IV (severe) 09/27/2023 10/26/2023 Depression, unspecified 11/09/202104/14 Depression, unspecified 11/09/202105/2022 Cellulitis of right leg 07/13/202105/2022 Last Assessment & Plan: Suspect this could be early/localized. Will treat with 7 days antibiotic. If pt cannot be reassess by Dr. Braxton office early next week will need [facility] provider recheck Multiple and open wound [...] 11/17/19 23 LUMBAGO 12/24/2002 05/09/2007 LOC PRIM [id number] 12/24/200208/13 DEGENERATIVE SKIN DISORD 12/24/2002 VERTEBRAL FX [...] as of this encounter (statuses as of 12/14/2023) Immunizations Name Administration Dates Next Due COVID-19 [...] No 10/31/2023 Does the household have a [facility] source of income? (Household - for [...] Description 12/18/2023 12:30 PM EST Laboratory Laboratory [facility] [place] [address] [place] [phone] [facility] [place] [address] 12/18/2023 1:00 PM EST Office Visit Hematology/Oncology Cely Zaldivar [place] [address] [place] [phone] Monse Coates MD [address] [place] [address] [place] [phone] 12/18/2023 1:30 PM EST Immunization/Injection Hematology/Oncology Treatment, [place] [address] [place] [phone] [place], Chair 7 Hem Onc Scenery [address] [place] [address] 12/19/2023 6:15 AM EST Anticoagulation Central[facility] Clinical [facility] Services, Ilya Lafleur [address] [place] [address] [place] [address] [facility], [address] [place] [address] 12/25/2023 10:30 AM EST [facility] [address] [place] [phone] [place], Lab Scenery [address] [place] [address] 01/19/2024 9:00 AM EST Office Visit Gastroenterology [address] [place] [address] Moon Avila, OLEG [address] [place] [address] 02/20/2024 12:30 PM EST Nurse Only Ancillary [address] [place] [address] [place], Nurse Annual [address] [place] [address] 03/08/2024 2:30 PM EST Office Visit Family Medicine [address] [place] [phone] Jocelyne Desai, [address] [place] [address] 04/16/2024 3:00 PM EST Office Visit Nephrology [address] [place] [address] Jennifer Agustin MD [address] [place] [address] [place] [address] Scheduled Procedures Name Priority Associated Diagnoses Date/Ti [...] encounter Medical Devices Implanted Type Area Project Development Engineer Device Identifier Shelf Expiration Date Model / Serial / Lot Shaft Fibula 6cm [id number] - [id number] Implanted:Qty: 1 on 09/05/2008 at OR [facility] Tissue - Human N/A: Spine Cervical MUSCULOSKELETAL TRANSPLANT FND 04/20/2010 [id number] / [id number] / Stent Eso Gw 22x70 [id number] - [id number] Implanted:Qty: 1 on 01/21/2008 at OR [facility] N/A: Esophagus [employer] 04/12/2009 [id number] / / [id number] Depuy Uniplate 32 Implanted:Qty: 1 on 09/05/2008 [...] Plate Zach 3 Level Ti 54mm - [id number] Implanted:Qty: 1 on 05/07/2010 at OR [facility] N/A: Neck JNJ : DEPUY SPINE [id number] / / Screw Zach Const St Ti 14mm - [id number] Implanted:Qty: 4 on 05/07/2010 at OR [facility] N/A: Neck JNJ : DEPU[employer] SPINE [id number] / / Screw 3.5x14 Mntr Fa [id number] - [id number] Implanted:Qty: 8 on 05/07/2010 at OR [facility] N/A: Spine Cervical JNJ : [employer] [id number] / / Jarrell [id number] - [id number] Implanted:Qty: 1 on 05/07/2010 at OR [facility] N/A: Spine Cervical JNJ : [employer] [id number] / / Screw Inner Mntr [id number] - [id number] Implanted:Qty: 8 on 05/07/2010 at OR [facility] N/A: Spine Cervical JNJ : [employer] [id number] / / Envista Intraocular Lens Implanted:Qty: 1 on 03/10/2022 by Liang Marshall MD at OR [facility] Right: Eye BAUSCH & LOMB 08/13/2023 [id number] / [id number] / [id number] Envista Intraocular Lens Implanted:Qty: 1 on 03/24/2022 by Liang Marshall MD at OR [facility] Left: Eye BAUSCH & LOMB 07/13/2024 [id number] / [id number] / [id number] documented as of this encounter Advance Directives Documents on File Type Date Recorded Patient 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 No Care Teams Route Service Representative Relationship Specialty Start Date End Date Jocelyne Desai DO [address] [place] [address] [place] [address] PCP - General Internal Medicine 11/09/16 documented as of this encounter
--- OUTSIDE RECORDS SUMMARY | 2024-01-29 17:49 | External Medical Summary | Summary of Care ---
Author Name Unknown Organization [facility] Address [address] [facility] [place] [address] Phone [phone] Care Team Providers Care Window Glazier Name Role Phone Jocelyne Desai DO Primary Care Provider [phone] Encounter Details Date Type Department Care Team (Late st Contact Info) Description 12/13/2023 Population Health External Data Unspecified Department Allergies [...] stage IV (GFR 15-29 ml/min) ([facility]) Take 1 Tablet by mouth in the morning and 1 Tablet before bedtime. 120 Tablet 3 11/30/2023 Active documented as of this encounter (statuses as of 12/13/2023) Active Problems Patient Care Coordination No te Formatting of this note migh t be different from the original. Good connectivity [facility] for [facility] care [phone] Televideo if needed. Problem Noted Date Diagnosed [...] ICD-10 update of inactive term PLATT RESEARCH OTHER*[id number] 02/20/2007 ADVANCE DIRECTIVE INFORMATION 01/19/2005 Overview: Yes, [...] 11/17/19 23 LUMBAGO 12/24/2002 05/09/2007 LOC PRIM [id number] 12/24/200208/13 DEGENERATIVE SKIN DISORD 12/24/2002 VERTEBRAL FX [...] No 10/31/2023 Does the household have a [facility] source of income? (Household - for [...] Department Care Team (Latest Contact Info) Description 12/13/2023 6:45 PM EDT Anticoagulation Centralized Clinical Pharmacy Services, Ilya Lafleur [address] [place] [address] [place] [address] [place] [address] Anticoagulation management encounter* 12/18/2023 12:30 PM EST Laboratory Laboratory [place] Gallo Zaldivar [address] [place] [phone] [place], Lab Scen[place] [address] [place] [address] 12/18/2023 1:00 PM EST Office Visit Hematology/Oncol ogy [place] [address] [place] [phone] Monse Coates MD [address] [place] [address] 12/18/2023 1:30 PM EST Immunization/Injection Hematology/Oncol ogy Treatment, [place] [address] [place] [phone] Kayley, Chair 7 Hem Onc [place] [address] [place] [address] 12/19/2023 6:15 AM EST Anticoagulation Centralized Clinical Pharmacy Services, [address] [place] [address] [facility] [place], [address] [place] [address] 12/25/2023 10:30 AM EST Laboratory Laboratory [facility] [place] [facility] [place] [address] [place] [phone] Kayley, Lab Scenery 200 [facility] [place] [address] 01/19/2024 9:00 AM EST Office Visit Gastroenterology [address] [place] [address] Moon Avila CRNP [address] [place] [address] 02/20/2024 12:30 PM EST Nurse Only Ancillary [address] [place] [address] Marleeey, Nurse [address] [place] [address] 03/08/2024 2:30 PM EST Office Visit Family Medicine [address] [place] [phone] [address] [place] [address] 04/16/2024 3:00 PM EST Office Visit Nephrology [address] [place] [address] Jennifer Agustin MD 200 [facility] [place] [address] Scheduled Procedures Name Priority Associated Diagnoses Date/Ti [...] this encounter Medical Devices Implanted Type Area Data Network Architect Device Identifier Shelf Expiration Date Model / Serial / Lot Shaft Fibula 6cm [id number] - [id number] Implanted:Qty: 1 on 09/05/2008 at [place] [facility] Tissue - Human N/A: Spine Cervical MUSCULOSKELETAL TRANSPLANT FND 04/20/2010 [id number] / [id number] 0P / Stent Eso Gw 22x70 18403-060 - [id number] Implanted:Qty: 1 on 01/21/2008 at OR [facility] N/A: Esophagus ALVE[employer]US INC 04/12/2009 30426-965 / / [id number] Depuy Uniplate 32 Implanted:Qty: 1 on 09/05/2008 [...] [facility] N/A: Neck 1773-06-146 / 1773-06-146 / Plate Zach 3 Level Ti 54mm - [id number] Implanted:Qty: 1 on 05/07/2010 at OR [facility] N/A: Neck JNJ : DEPUY SPINE [id number] / / Screw Zach Const St Ti 14mm - [id number] Implanted:Qty: 4 on 05/07/2010 at OR [facility] N/A: Neck JNJ : DEPUY SPINE [id number] / / Screw 3.5x14 Mntr Fa [id number] - [id number] Implanted:Qty: 8 on 05/07/2010 at [place] [facility] N/A: Spine Cervical JNJ : ETHICON CARDIOVATIONS [id number] / / Jarrell [id number] - [id number] Implanted:Qty: 1 on 05/07/2010 at OR [facility] N/A: Spine Cervical JNJ : ETHICON CARDIOVATIONS [id number] / / Screw Inner Mntr [id number] - [id number] Implanted:Qty: 8 on 05/07/2010 at OR [facility] N/A: Spine Cervical JNJ : ETHICON CARDIOVATIONS [id number] / / Envista Intraocular Lens Implanted:Qty: 1 on 03/10/2022 by Liang Marshall MD at OR [facility] Right: Eye BAUSCH & LOMB 08/13/2023 [id number] / [id number] / [id number] Envista Intraocular Lens Implanted:Qty: 1 on 03/24/2022 by Liang Marshall MD at OR [facility] Left: Eye BAUSCH & LOMB 07/13/2024 [id number] / [id number] / [id number] documented as of this encounter Advance Directives Documents on File Type Date Recorded Patient Generator Worker Expl anation POLST 01/26/2021 [place] OR [facility] [...] Power of Attor andrew? No Care Teams Window Glazier Relationship Specialty Start Date End Date Jocelyne Desai DO [address] [place] [address] [place] [address] PCP - General Internal Medicine 11/09/16 documented as of this encounter
--- OUTSIDE RECORDS SUMMARY | 2024-01-29 17:50 | External Medical Summary | Summary of Care ---
Author Name Unknown Organization [facility] Address [address] [facility] [facility] [address] Phone [phone] Care Team Providers Care Pathology Secretary/Transcriptionist Name Role Phone Desai Jocelyne Cunninghambritany ASHTON Primary Care Provider [phone] Reason for Visit * Reason Comments Medication Administration Retacrit 20,00 0 units * Episode Based Medications (Routine) - Pending Review Specialty Diagnoses / Procedures Referred By Mingo t Referred To Contact Diagnoses 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) Iron deficiency anemia due to chronic blood loss Procedures [place] INJ RETACRIT NON-ESRD USE Monse Coates MD [address] [place] [address] [place] [address] Anc Hem/Onc [address] [address] Referral ID Status Reason Start Date Expiration Date V isits Requested Visits Authorized [id number] Pending Review 11/13/2023 11/12/2024 [id number] Encounter Details Date Type Department Care Team (Late st Contact Info) Description 12/04/2023 10:30 AM EDT Immunization/I njection Hematology/Oncology Treatment, [address] [address] Kayley, Chair [address] [place] [address] 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)*; Iron deficiency anemia due to chronic blood loss Allergies No known active allergiesdocumented as of this encounter (statuses as of 12/04/2023) Medications Medication Sig Dispensed Refills Start Date [...] chronic, stage IV (GFR 15-29 ml/min) ([facility]) Take 1 Tablet by mouth in the morning and 1 Tablet before bedtime. 120 Tablet 3 11/30/2023 Active documented as of this encounter (statuses as of 12/04/2023) Active Problems Patient Care Coordination No te Formatting of this note migh t be different from the original. Good connectivity [facility] for wound care [phone] Televideo if needed. Problem Noted Date Diagnosed [...] ICD-10 update of inactive term PLATT RESEARCH OTHER*[id number] 02/20/2007 ADVANCE DIRECTIVE INFORMATION 01/19/2005 Overview: Yes, Patient instructed to provide copy of advance directive for provider to review and to be scanned into Electronic Medical Record No, Advance Directive brochure given to patient at prior appointment. SPINAL STENOSIS-LUMBAR 09/23/2002 Vitamin D deficiency Cervical spinal stenosis documented as of this encounter (statuses as of 12/04/2023) Resolved Problems Problem Noted Date Diagnosed Date Resolved Date Chronic kidney disease (CKD) , stage IV (severe) 09/27/2023 10/26/2023 Depression, unspecified 11/09/2021 03/2 Depression, unspecified 11/09/202105/2022 Cellulitis of right leg 07/13/202105/2022 Last Assessment & Plan: Suspect this could be early/localized. Will treat with 7 days antibiotic. If pt cannot be reassess by Dr. Braxton office early next week will need [facility] provider recheck Multiple and [...] 11/17/19 23 LUMBAGO 12/24/2002 05/09/2007 LOC PRIM [id number] 12/24/200208/13 DEGENERATIVE SKIN DISORD 12/24/2002 VERTEBRAL FX [...] as of this encounter (statuses as of 12/04/2023) Immunizations Name Administration Dates Next Due COVID-19 mRNA, LNP-s, No Pre serve, 2-Dose Series (Moderna) 03/19/2020 COVID-19 mRNA, LNP-s, No Pre serve, 2-Dose Series (Pfizer) 02/16/2021,04/09/2020,03/19/2020 COVID-19, MRNA-LNP, 23-24, P F, 30 MCG/0.3 mL, 12 YRS AND ABOVE, IM (Polyvore-ComirnatRockThePost) 11/16/2022 Covid-19, Mrna, Lnp-s, Pf, B ivalent, [...] Nursing Notes * Adenike Shaw LPN - 12/04/2023 11:51 AM EDT HGB [...] Care Team (Late st Contact Info) Description 12/05/2023 6:30 AM EDT Anticoagulation Centralized Clinical Pharmacy Services, Ilya Lafleur [address] [place] [address] [place] [address] [facility], [address] [place] [address] 12/11/2023 9:40 AM EDT Laboratory Laboratory [facility] [place] [address] [place] [phone] Kayley, Lab Scenery [address] [place] [address] 12/11/2023 10:30 AM EDT Immunization/Injection Hematology/Oncology Treatment, [place] [address] [place] [phone] Kayley, Chair 7 Hem Onc [place] [address] [place] [address] 12/18/2023 12:30 PM EST Laboratory Laboratory [facility] [address] [place] [phone] [place], Lab Scenery [address] [place] [address] 12/18/2023 1:00 PM EST Office Visit Hematology/Oncology [facility] [place] [address] [place] [phone] Monse Coates MD [address] [place] [address] [place] [phone] 12/18/2023 1:30 PM EST Immunization/Injection Hematology/Oncology Treatment, [place] [address] [place] [phone] Kayley, Chair 7 Hem Onc [place] [address] [place] [address] 12/25/2023 10:30 AM EST Laboratory Laboratory [facility] [place] [address] [place] [phone] [place], Lab Scenery [address] [place] [address] 01/19/2024 9:00 AM EST Office Visit Gastroenterology [address] [place] [address] Moon Avila, OLEG [address] [place] [address] 02/20/2024 12:30 PM EST Nurse Only Ancillary [address] [place] [address] Marleeey, Nurse [address] [place] [address] 03/08/2024 2:30 PM EST Office Visit Family Medicine [address] [place] [phone] Jocelyne Desai[address] [place] [address] 04/16/2024 3:00 PM EST Office Visit Nephrology [address] [place] [address] Jennifer Agustin MD [address] [place] [address] Scheduled Procedures Name Priority Associated Diagnoses Date/Ti [...] this encounter Medical Devices Implanted Type Area Choreography Director Device Identifier Shelf Expiration Date Model / Serial / Lot Shaft Fibula 6cm [id number] - [id number] Implanted:Qty: 1 on 09/05/2008 at OR [facility] Tissue - Human N/A: Spine Cervical MUSCULOSKELETAL TRANSPLANT FND 04/20/2010 168054 / [id number] 0P / Stent Eso Gw 22x70 [id number] - [id number] Implanted:Qty: 1 on 01/21/2008 at OR [facility] N/A: Esophagus [employer]OLUS INC 04/12/2009 50336-876 / / [id number] Depuy Uniplate 32 Implanted:Qty: 1 on 09/05/2008 [...] Plate Zach 3 Level Ti 54mm - [id number] Implanted:Qty: 1 on 05/07/2010 at OR [facility] N/A: Neck JNJ : DEPUY SPINE [id number] 54 / / Screw Zach Const St Ti 14mm - [id number] Implanted:Qty: 4 on 05/07/2010 at OR [facility] N/A: Neck JNJ : DEPUY SPINE [id number] 14 / / Screw 3.5x14 Mntr Fa [id number] - [id number] Implanted:Qty: 8 on 05/07/2010 at OR [facility] N/A: Spine Cervical JNJ : ETHICON CARDIOVATIONS [id number] / / Jarrell 3.8v200en [id number] - [id number] Implanted:Qty: 1 on 05/07/2010 at OR [facility] N/A: Spine Cervical JNJ : ETHICON CARDIOVATIONS [id number] / / Screw Inner Mntr [id number] - [id number] Implanted:Qty: 8 on 05/07/2010 at OR [facility] N/A: Spine Cervical JNJ : ETHICON CARDIOVATIONS [id number] / / Envista Intraocular Lens Implanted:Qty: 1 on 03/10/2022 by Liang Marshall MD at OR [facility] Right: Eye BAUSCH & LOMB 08/13/2023 [id number] / [id number] / [id number] Envista Intraocular Lens Implanted:Qty: 1 on 03/24/2022 by Liang Marshall MD at OR [facility] Left: Eye BAUSCH & LOMB 07/13/2024 [id number] / [id number] / [id number] documented as of this encounter Visit Diagnoses Diagnosis 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)- Primary Iron deficiency anemia due to chronic blood loss Iron deficiency anemia secondary to blood loss (chronic) documented in this encounter Administered Medications Inactive Administered Medications - up to 3 most recent administrations Medication Order MAR Action Action Date Dose Rate Site Epoetin Sam-epbx (Retacrit) 50788 UNIT/ML inj 20,000 Units 20,000 Units, Subcutaneous, ONCE, On 12/04/23 at 1230, For 1 dose, If hgb <11.0 Given 12/04/2023 11:47 AM EDT 20,000 Units Arm Right Upper documented in this encounter Advance Directives Documents on File Type Date Recorded Patient 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 No Care Teams Pathology Secretary/Transcriptionist Relationship Specialty Start Date End Date Jocelyne Desai DO [address] [place] [address] [place] [address] PCP - General Internal Medicine 11/09/16 documented as of this encounter
--- OUTSIDE RECORDS SUMMARY | 2024-01-29 17:50 | External Medical Summary | Summary of Care ---
Author Name Unknown Organization [facility] Address [address] [facility] [place] [address] Phone [phone] Care Team Providers Care Supervisor Of Guidance And Testing Name Role Phone Jocelyne Desai Primary Care Provider [phone] Reason for Visit * Reason Onset Date Comments Appointment 12/04/2023 Encounter Details Date Type Department Care Team ([facility] st Contact Info) Description 12/04/2023 Telephone Hematology/Oncology [facility] [place] [address] [facility] [address] Monse Coates MD 400 [facility] [place] [address] Appointment Allergies No known active [...] [facility] [phone] Televideo if needed. Problem Noted Date Diagnosed [...] ICD-10 update of inactive term PLATT RESEARCH OTHER*[id number] 02/20/2007 ADVANCE DIRECTIVE INFORMATION 01/19/2005 Overview: Yes, [...] 11/17/19 23 LUMBAGO 12/24/2002 05/09/2007 LOC PRIM INJSMATR-S-GYV 12/24/200208/13 DEGENERATIVE SKIN DISORD 12/24/2002 VERTEBRAL FX [...] Care Team (Late st Contact Info) Description 12/11/2023 9:40 AM EDT Laboratory Laboratory [facility] [place] [address] [place] [phone] Kayley Lab [facility] [address] [facility] [place] [address] 12/11/2023 10:30 AM EDT Immunization/Injection Hematology/Oncology Treatment, [place] [address] [place] [phone] Kayley Chair 7 Hem Onc [facility] [address] [place] [address] 12/13/2023 6:45 PM EDT Anticoagulation Centralized Clinical Pharmacy Services, Ilya Lafleur [address] [place] [address] [place] [address] [facility], [address] [place] [address] 12/18/2023 12:30 PM EST Laboratory Laboratory [facility] [place] [address] [place] [phone] [place], Lab [facility] [address] [place] [address] 12/18/2023 1:00 PM EST Office Visit Hematology/Oncology [facility] [place] [address] [place] [phone] Monse Coates MD [address] [place] [address] [place] [phone] 12/18/2023 1:30 PM EST Immunization/Injection Hematology/Oncology Treatment, [place] [address] [place] [phone] Kayley, Chair 7 Hem Onc [facility] 200 [facility] [place] [address] 12/25/2023 10:30 AM EST Laboratory Laboratory [facility] [place] 200 [facility] [place] [phone] [place], Lab [facility] 200 [facility] [place] [address] 01/19/2024 9:00 AM EST Office Visit Gastroenterology [address] [place] [address] Moon Avila CRNP [address] [place] [address] 02/20/2024 12:30 PM EST Nurse Only Ancillary [address] [place] [address] [place], Nurse [facility] [address] [place] [address] [place] [address] 03/08/2024 2:30 PM EST Office Visit Family Medicine [address] [place] [phone] Jocelyne Desai, [address] [place] [address] 04/16/2024 3:00 PM EST Office Visit Nephrology [address] [place] [address] Jennifer Agustin MD 200 [facility] [place] [address] Scheduled Procedures Name Priority Associated Diagnoses Date/Ti [...] encounter Medical Devices Implanted Type Area Building Mechanic Device Identifier Shelf Expiration Date Model / Serial / Lot Shaft Fibula 6cm 162586 - [id number] Implanted:Qty: 1 on 09/05/2008 [place] [facility] [place] - Human N/A: Spine Cervical MUSCULOSKELETAL TRANSPLANT FND 04/20/2010 151782 / [id number] 0P / Stent Eso Gw 22x70 [address]-428 - [id number] Implanted:Qty: 1 on 01/21/2008 [place] [facility] N/A: Esophagus ALVEOLUS INC 04/12/2009 51864-850 / / [id number] Depuy Uniplate 32 Implanted:Qty: 1 on 09/05/2008 [place] [facility] N/A: Spine Cervical TAMMY & TAMMY DEPUY 1896-03-302 / / Depuy Uniplate Screw 14mm Implanted:Qty: 2 on 09/05/2008 [place] [facility] N/A: Spine Cervical TAMMY & TAMMY DEPUY 1896-07-017 / / Depuy Lordotic Bengal Cage Implanted:Qty: 1 on 05/07/2010 [place] [facility] N/A: Neck 1773-06-146 / 1773-06-146 / Plate Zach 3 Level Ti 54mm - [id number] Implanted:Qty: 1 on 05/07/2010 [place] [facility] N/A: Neck JNJ : DEPUY SPINE [id number] / / Screw Zach Const St Ti 14mm - [id number] Implanted:Qty: 4 on 05/07/2010 [place] [facility] N/A: Neck JNJ : DEPUY SPINE [id number] 14 / / Screw 3.5x14 Mntr Fa [id number] - [id number] Implanted:Qty: 8 on 05/07/2010 [place] [facility] N/A: Spine Cervical JNJ : ETHICON CARDIOVATIONS [id number] / / Jarrell 3.8e332lw [id number] - [id number] Implanted:Qty: 1 on 05/07/2010 [place] [facility] N/A: Spine Cervical JNJ : ETHICON CARDIOVATIONS [id number] / / Screw Inner Mntr [id number] - [id number] Implanted:Qty: 8 on 05/07/2010 [place] [facility] N/A: Spine Cervical JNJ : ETHICON CARDIOVATIONS [id number] / / Envista Intraocular Lens Implanted:Qty: 1 on 03/10/2022 by Liang Marshall MD at OR [facility] Right: Eye BAUSCH & LOMB 08/13/2023 [id number] / [id number] / [id number] Envista Intraocular Lens Implanted:Qty: 1 on 03/24/2022 by Liang Marshall MD at OR [facility] Left: Eye BAUSCH & LOMB 07/13/2024 [id number] / [id number] / [id number] documented as of this encounter Advance Directives Documents on File Type Date Recorded Patient Air Director Expl anation POLST 01/26/2021 [place] OR [facility] [...] of Attor andrew? No Care Teams Supervisor Of Guidance And Testing Relationship Specialty Start Date End Date Jocelyne Desai DO [address] [place] [address] [place] [address] PCP - General Internal Medicine 11/09/16 documented as of this encounter
--- OUTSIDE RECORDS SUMMARY | 2024-01-29 17:50 | External Medical Summary | Summary of Care ---
Author Name Unknown Organization [facility] Address [address] [facility] [place] [address] Phone [phone] Care Team Providers Care Compressed Gases Tester Name Role Phone Jocelyne Desai Primary Care Provider [phone] Reason for Visit * Reason Onset Date Comments Appointment 12/04/2023 Encounter Details Date Type Department Care Team ([facility] st Contact Info) Description 12/04/2023 Telephone Hematology/Oncology [facility] [place] [address] [facility] [address] Monse Coates MD 400 [facility] [place] [address] Appointment Allergies No known active [...] disease, chronic, stage IV (GFR 15-29 ml/min) ([facility]) Take 1 Tablet by mouth in the morning and 1 Tablet before bedtime. 120 Tablet 3 11/30/2023 Active documented as of this encounter (statuses as of 12/07/2023) Active Problems Patient Care Coordination No te Formatting of this note migh t be different from the original. Good connectivity [facility] for wound care [phone] Televideo if needed. Problem Noted Date Diagnosed [...] up with podiatry,. Letter in chart from [facility] podiatry they were unable to [...] ICD-10 update of inactive term PLATT RESEARCH OTHER*[id number] 02/20/2007 ADVANCE DIRECTIVE INFORMATION 01/19/2005 Overview: Yes, [...] 11/17/19 23 LUMBAGO 12/24/2002 05/09/2007 LOC PRIM [id number] 12/24/200208/13 DEGENERATIVE SKIN DISORD 12/24/2002 VERTEBRAL FX [...] week need to re- authorized with insurance? * Telephone Encounter - Josafat Jeffers RN [...] Description 12/11/2023 9:40 AM EDT Laboratory Laboratory [facility] [place] [address] [place] [phone] Kayley, Lab Scene 200 [facility] [place] [address] 12/11/2023 10:30 AM EDT Immunization/Injection Hematology/Oncology Treatment, [place] [address] [place] [phone] Kayley, Chair 7 Hem Onc Scene [address] [place] [address] 12/13/2023 6:45 PM EDT Anticoagulation Centralized Clinical Pharmacy Services, Ilya Lafleur [address] [place] [address] [place] [address] [facility] [place] [address] 12/18/2023 12:30 PM EST Laboratory Laboratory [facility] [place] [address] [place] [phone] Kayley, Lab Scenery [address] [place] [address] 12/18/2023 1:00 PM EST Office Visit Hematology/Oncology [facility] [place] [address] [place] [phone] Monse Coates MD [address] [place] [address] [place] [address] 12/18/2023 1:30 PM EST Immunization/Injection Hematology/Oncology Treatment, [place] [address] [place] [phone] Kayley, Chair 7 Hem Onc Scene [address] [place] [address] 12/25/2023 10:30 AM EST Laboratory Laboratory [facility] [place] [address] [place] [phone] Kayley, Lab Scenery [address] [place] [address] 01/19/2024 9:00 AM EST Office Visit Gastroenterology [address] [place] [address] Moon Avila CRNP [address] [place] [address] 02/20/2024 12:30 PM EST Nurse Only Ancillary [address] [place] [address] [place], Nurse [address] [place] [address] [place] [address] 03/08/2024 2:30 PM EST Office Visit Family Medicine [address] [place] [phone] [place] [address] 04/16/2024 3:00 PM EST Office Visit Nephrology [address] [place] [address] Jennifer Agustin MD 200 [facility] [place] [address] Scheduled Procedures Name Priority Associated Diagnoses Date/Ti [...] encounter Medical Devices Implanted Type Area Oracle Architect Device Identifier Shelf Expiration Date Model / Serial / Lot Shaft Fibula 6cm [id number] - [id number] Implanted:Qty: 1 on 09/05/2008 [place] [facility] [place] - Human N/A: Spine Cervical MUSCULOSKELETAL TRANSPLANT FND 04/20/2010 [id number] / [id number] 0P / Stent Eso Gw 22x70 28003-985 - [id number] Implanted:Qty: 1 on 01/21/2008 [place] [facility] N/A: Esophagus ALVEOLUS INC 04/12/2009 27799-990 / / [id number] Depuy Uniplate 32 Implanted:Qty: 1 on 09/05/2008 [...] [facility] [place]/A: Neck 1773-06-146 / 1773-06-146 / Plate Zach 3 Level Ti 54mm - [id number] Implanted:Qty: 1 on 05/07/2010 at [place] [facility] [place]A: Neck JNJ : DEPUY SPINE [id number] 54 / / Screw Zach Const St Ti 14mm - [id number] Implanted:Qty: 4 on 05/07/2010 at [place] [facility] [place]A: Neck JNJ : DEPUY SPINE [id number] 14 / / Screw 3.5x14 Mntr Fa [id number] - [id number] Implanted:Qty: 8 on 05/07/2010 at [place] [facility] [place]A: Spine Cervical JNJ : ETHICON CARDIOVATIONS [id number] / / Jarrell [id number] - [id number] Implanted:Qty: 1 on 05/07/2010 at [place] [facility] [place]A: Spine Cervical JNJ : ETHICON CARDIOVATIONS [id number] / / Screw Inner Mntr [id number] - [id number] Implanted:Qty: 8 on 05/07/2010 at [place] [facility] [place]/A: Spine Cervical JNJ : ETHICON CARDIOVATIONS [id number] / / Envista Intraocular Lens Implanted:Qty: 1 on 03/10/2022 by Liang Marshall MD at OR [facility] Right: Eye BAUSCH & LOMB 08/13/2023 [id number] / [id number] / [id number] Envista Intraocular Lens Implanted:Qty: 1 on 03/24/2022 by Liang Marshall MD at OR [facility] Left: Eye BAUSCH & LOMB 07/13/2024 [id number] / [id number] / [id number] documented as of this encounter Advance Directives Documents on File Type Date Recorded 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 No Care Teams Compressed Gases Tester Relationship Specialty Start Date End Date Jocelyne Desai DO [address] [place] [address] [place] [address] PCP - General Internal Medicine 11/09/16 documented as of this encounter
--- OUTSIDE RECORDS SUMMARY | 2024-01-29 17:50 | External Medical Summary | Summary of Care ---
Author Name Unknown Organization [facility] Address [address] [facility] [place] [address] Phone [phone] Care Team Providers Care Dealer Card Room Name Role Phone Jocelyne Desai Primary Care Provider [phone] Reason for Visit * Reason Onset Date Comments Appointment 12/04/2023 Encounter Details Date Type Department Care Team ([facility] st Contact Info) Description 12/04/2023 Telephone Hematology/Oncology [facility] [place] [address] [facility] [address] Monse Coates MD 400 [facility] [place] [address] Appointment Allergies No known active [...] [facility] [phone] Televideo if needed. Problem Noted Date Diagnosed [...] ICD-10 update of inactive term PLATT RESEARCH OTHER*[id number] 02/20/2007 ADVANCE DIRECTIVE INFORMATION 01/19/2005 Overview: Yes, [...] early next week will need [facility] provider recheck Multiple and open wound [...] 11/17/19 23 LUMBAGO 12/24/2002 05/09/2007 LOC PRIM [id number] 12/24/200208/13 DEGENERATIVE SKIN DISORD 12/24/2002 VERTEBRAL FX [...] encounter Miscellaneous Notes * Telephone Encounter - Adenike Shaw LPN [...] AM EDT Anticoagulation Centralized Clinical Pharmacy Services, Slopelillie Lafleur [address] [place] [address] [place] [address] [facility], [address] [place] [address] 12/11/2023 9:40 AM EDT Laboratory Laboratory [facility] [place] [address] [place] [phone] Kayley, Lab Scenery 200 [facility] [place] [address] 12/11/2023 10:30 AM EDT Immunization/Injection Hematology/Oncology Treatment, [address] [phone] Kayley, Chair [address] [facility] 200 [facility] [place] [address] 12/18/2023 12:30 PM EST Laboratory Laboratory [facility] [place] [address] [place] [address] Kayley, Lab Scenery 200 [facility] [place] [address] 12/18/2023 1:00 PM EST Office Visit Hematology/Oncology [facility] [place] [address] [place] [phone] Monse Coates MD [address] [place] [address] [place] [address] 12/18/2023 1:30 PM EST Immunization/Injection Hematology/Oncology Treatment, [address] [phone] Kayley, Chair 7 Hem Onc Scenery [address] [place] [address] 12/25/2023 10:30 AM EST Laboratory Laboratory [facility] State Gallo Zaldivar [address] [place] [phone] Park, Lab Scenery [address] [place] [address] 01/19/2024 9:00 AM EST Office Visit Gastroenterology [address] [place] [address] Moon Avila CRNP [address] [place] [address] 02/20/2024 12:30 PM EST Nurse Only Ancillary [address] [place] [address] [place], Nurse [address] [place] [address] 03/08/2024 2:30 PM EST Office Visit Family Medicine [address] [place] [phone] [address] [place] [address] 04/16/2024 3:00 PM EST Office Visit Nephrology [address] [place] [address] Jennifer Agustin MD [address] [place] [address] Scheduled Procedures Name Priority Associated Diagnoses Date/Ti [...] this encounter Medical Devices Implanted Type Area Welder Machine Operator Device Identifier Shelf Expiration Date Model / Serial / Lot Shaft Fibula 6cm [id number] - [id number] Implanted:Qty: 1 on 09/05/2008 [place] [facility] [place] Tissue - Human N/A: Spine Cervical MUSCULOSKELETAL TRANSPLANT FND 04/20/2010 501336 / [id number] 0P / Stent Eso Gw 22x70 88166-296 - [id number] Implanted:Qty: 1 on 01/21/2008 at [place] [facility] [place] N/A: Esophagus ALVEOLUS INC 04/12/2009 85524-778 / / [id number] Depuy Uniplate 32 Implanted:Qty: 1 on 09/05/2008 [...] Plate Zach 3 Level Ti 54mm - [id number] Implanted:Qty: 1 on 05/07/2010 at [place] [facility] [place] N/A: Neck JNJ : DEPUY SPINE [id number] / / Screw Zach Const St Ti 14mm - [id number] Implanted:Qty: 4 on 05/07/2010 at [place] [facility] [place] N/A: Neck JNJ : DEPUY SPINE 6777770 14 / / Screw 3.5x14 Mntr Fa [id number] - [id number] Implanted:Qty: 8 on 05/07/2010 at [place] [facility] [place] N/A: Spine Cervical JNJ : ETHICON CARDIOVATIONS [id number] / / Jarrell [id number] - [id number] Implanted:Qty: 1 on 05/07/2010 at [place] [facility] [place] N/A: Spine Cervical JNJ : ETHICON CARDIOVATIONS [id number] / / Screw Inner Mntr [id number] - [id number] Implanted:Qty: 8 on 05/07/2010 at [place] [facility] [place] N/A: Spine Cervical JNJ : ETHICON CARDIOVATIONS [id number] / / Envista Intraocular Lens Implanted:Qty: 1 on 03/10/2022 by Liang Marshall MD at OR [facility] Right: Eye BAUSCH & LOMB 08/13/2023 [id number] / [id number] / [id number] Envista Intraocular Lens Implanted:Qty: 1 on 03/24/2022 by Liang Marshall MD at OR [facility] Left: Eye BAUSCH & LOMB 07/13/2024 [id number] / [id number] / [id number] documented as of this encounter Advance Directives Documents on File Type Date Recorded 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 No Care Teams Dealer Card Room Relationship Specialty Start Date End Date Jocelyne Desai DO [address] [place] [address] [place] [phone] PCP - General Internal Medicine 11/09/16 documented as of this encounter
--- OUTSIDE RECORDS SUMMARY | 2024-01-29 17:50 | External Medical Summary | Summary of Care ---
Author Name Unknown Organization [facility] Address [address] [place] [address] Phone [phone] Care Team Providers Care Rubber Vulcanizing Machine Operator Name Role Phone Jocelyne Desai Primary Care Provider [phone] Reason for Visit * Reason Onset Date Comments TRIAGE 11/21/2023 Encounter Details Date Type Department Care Team (Late st Contact Info) Description 11/21/2023 Telephone [facility]ascular Surgery, [facility] [address] [facility] [address] Kaiden Woodall MD [address] [place] [address] TRIAGE Allergies No known active allergiesdocumented as of [...] per anti-coagulatio n clinic. 100 Tablet 3 4 Active Aspirin [...] Tablets before bedtime. 360 Tablet 3 4 Active Doxycycline Hyclate 100 MG Oral Tablet Delayed Release Take 1 Tablet by mouth in the morning and 1 Tablet before bedtime. 11/30/19 24 Discontinued Torsemide 20 MG Oral Tablet (Demadex) Take 2 Tablets by mouth in the morning. 180 Tablet 1 4 11/30/19 24 Discontinued Potassium Chloride Candi ER 20 MEQ Oral Tablet Extended Release Take one tablet TWICE daily Mon, Wed, Fri and one tablet ONCE daily other days of week 120 Tablet 1 4 11/23/19 24 Discontinued(Ref ill) documented as of this encounter (statuses as of 12/04/2023) Active Problems Patient Care Coordination No te Formatting of this note migh t be different from the original. Good connectivity [facility] for wound care [phone] Televideo if needed. Problem Noted Date Diagnosed [...] ICD-10 update of inactive term PLATT RESEARCH OTHER*[id number] 02/20/2007 ADVANCE DIRECTIVE INFORMATION 01/19/2005 Overview: Yes, [...] use tape directly on skin--secure dressings with ojse wrap and tape the jose wrap. Continue [...] 11/17/19 23 LUMBAGO 12/24/2002 05/09/2007 LOC PRIM [id number] 12/24/200208/13 DEGENERATIVE SKIN DISORD 12/24/2002 VERTEBRAL FX [...] Telephone Encounter - Marisela Peraza LPN - 12/04/2023 12:21 PM EDT Apt with Pita reyez cancelled * Telephone Encounter - Marisela Peraza LPN - 12/04/2023 11:19 [address] EDT Looks like Dr Agustin placed referral for Vascular Surgery for AVF in preparation for dialysis Shewould like pt seen by Dr Cutler instead Apt with Dr Woodall will need to be canceled and apt made with Dr Cutler instead Referral and clinic note faxed to Dr Cutler's office Please cancel Dr Woodall apt on 12/21/23 and 12/27/23 apt * Telephone Encounter - Jennifer Agustin MD - 11/30/2023 1:28 PM EDT Referral placed for Dr Cutler originally b/c pt unable to travel [place] [facility] for vascular surgical procedures Pls cancel [facility] vascular procedures and schedule w/ Dr Cutler [facility] Vascular * Telephone Encounter - Briana Steward LPN - 11/22/2023 11:11 AM EDT Pt is scheduled on 12/21/23 in [facility] for testing. Briana Steward LPN 11/22/2023 11:11 AM * Telephone Encounter - Duke Alvarez PA-C - 11/21/2023 5:03 PM EDT Signed, thank you * Telephone Encounter - Briana Steward LPN - 11/21/2023 9:30 AM EDT Associated Diagnoses Stage 4 chronic kidney disease (HCC) [N18.4] Order pended for pre op dialysis Please review and sign if appropriate. Pt is scheduled on 12/27/[address] oWodall in [place] Briana Steward LPN 11/21/2023 9:33 AM documented in this encounter Plan of Treatment Upcoming Encounters Date Type Department Care Team (Late st Contact Info) Description 12/05/2023 6:30 AM EDT Anticoagulation Centralized Clinical Pharmacy Services, Ilya Lafleur [address] [place] [address] [place] [address] [facility], [address] [place] [address] 12/11/2023 9:40 AM EDT Laboratory Laboratory [facility] Kayley [place] [address] [place] [phone] Kayley, Lab [facility] 200 [facility] [place] [address] 12/11/2023 10:30 AM EDT Immunization/Injection Hematology/Oncology Treatment, [place] [address] [place] [phone] Kayley, Chair 7 Hem Onc [facility] 200 [facility] [place] [address] 12/18/2023 12:30 PM EST Laboratory Laboratory [facility] Kayley [place] [address] [place] [phone] Kayley, Lab Scenery 200 [facility] [place] [address] 12/18/2023 1:00 PM EST Office Visit Hematology/Oncology [facility] Kayley [place] [address] [place] [phone] Monse Coates MD [address] [place] [address] [place] [phone] 12/18/2023 1:30 PM EST Immunization/Injection Hematology/Oncology Treatment, [place] [address] [place] [address] Kayley, Chair 7 Hem Onc Scene [address] [place] [address] 12/25/2023 10:30 AM EST Laboratory Laboratory [facility] [place] [address] [place] [phone] Kayley Lab Scenery 200 [facility] [place] [address] 01/19/2024 9:00 AM EST Office Visit Gastroenterology [address] [place] [address] Moon Avila, EPOXY SPECIALIST [address] [place] [address] 02/20/2024 12:30 PM EST Nurse Only Ancillary [address] [place] [address] [place], Nurse [address] [place] [address] 03/08/2024 2:30 PM EST Office Visit Family Medicine [address] [place] [phone] [place] [address] 04/16/2024 3:00 PM EST Office Visit Nephrology [address] [place] [address] Jennifer Agustin MD [address] [place] [address] Scheduled Orders Name Type Priority Associated Diagnoses Orde r Schedule VASC PRE OP DIALYSIS ACCESS EVAL - BILAT Medical Imaging Routine ESRD (end stage renal disease) (HCC) Ordered: 11/21/2023 Scheduled Procedures Name Priority Associated Diagnoses Date/Ti [...] this encounter Medical Devices Implanted Type Area Solutions Executive Cloud Sales Device Identifier Shelf Expiration Date Model / Serial / Lot Shaft Fibula 6cm [id number] - [id number] Implanted:Qty: 1 on 09/05/2008 [place] [facility] [place] - Human N/A: Spine Cervical MUSCULOSKELETAL TRANSPLANT FND 04/20/2010 [id number] / [id number] 0P / Stent Eso Gw 22x70 29647-596 - [id number] Implanted:Qty: 1 on 01/21/2008 [place] [facility] N/A: Esophagus ALVEOLUS INC 04/12/2009 43238-711 / / [id number] Depuy Uniplate 32 Implanted:Qty: 1 on 09/05/2008 [place] [facility] N/A: Spine Cervical TAMMY & TAMMY DEPUY 1897--302 / / Depuy Uniplate Screw 14mm Implanted:Qty: 2 on 09/05/2008 [place] [facility] N/A: Spine Cervical TAMMY & TAMMY DEPUY 1897--017 / / Depuy Lordotic Bengal Cage Implanted:Qty: 1 on 05/07/2010 [place] [facility] N/A: Neck 1773-06-146 / 1773-06-146 / Plate Zach 3 Level Ti 54mm - [id number] Implanted:Qty: 1 on 05/07/2010 [place] [facility] N/A: Neck JNJ : DEPUY SPINE [id number] 54 / / Screw Zach Const St Ti 14mm - [id number] Implanted:Qty: 4 on 05/07/2010 [place] [facility] N/A: Neck JNJ : DEPUY SPINE [id number] 14 / / Screw 3.5x14 Mntr Fa [id number] - [id number] Implanted:Qty: 8 on 05/07/2010 [place] [facility] N/A: Spine Cervical JNJ : ETHICON CARDIOVATIONS [id number] / / Jarrell [id number] - [id number] Implanted:Qty: 1 on 05/07/2010 [place] [facility] N/A: Spine Cervical JNJ : ETHICON CARDIOVATIONS [id number] / / Screw Inner Mntr [id number] - [id number] Implanted:Qty: 8 on 05/07/2010 [place] [facility] N/A: Spine Cervical JNJ : ETHICON CARDIOVATIONS [id number] / / Envista Intraocular Lens Implanted:Qty: 1 on 03/10/2022 by Liang Marshall MD at OR [facility] Right: Eye BAUSCH & LOMB 08/13/2023 [id number] / [id number] / [id number] Envista Intraocular Lens Implanted:Qty: 1 on 03/24/2022 by Liang Marshall MD at OR [facility] Left: Eye BAUSCH & LOMB 07/13/2024 [id number] / [id number] / [id number] documented as of this encounter Visit Diagnoses Diagnosis ESRD (end stage renal disease) (HCC)- Primary End stage renal disease documented in this encounter Advance Directives Documents on File Type Date Recorded 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 No Care Teams Rubber Vulcanizing Machine Operator Relationship Specialty Start Date End Date Jocelyne Desai DO [address] [place] [address] [place] [address] PCP - General Internal Medicine 11/09/16 documented as of this encounter
--- OUTSIDE RECORDS SUMMARY | 2024-01-29 17:50 | External Medical Summary | Summary of Care ---
Author Name Unknown Organization [facility] Address [address] [facility] [place] [address] Phone [phone] Care Team Providers Care Registered Dietitian Name Role Phone Jocelyne Desai Primary Care Provider [phone] Reason for Visit * Reason Onset Date Comments Appointment 12/04/2023 Encounter Details Date Type Department Care Team ([facility] st Contact Info) Description 12/04/2023 Telephone Hematology/Oncology [facility] [place] [address] [facility] [address] Monse Coates MD [address] [place] [address] Appointment Allergies No known active [...] [facility] for wound care [phone] Televideo if needed. Problem Noted Date Diagnosed [...] up with podiatry,. Letter in chart from [facility] podiatry they were unable to get [...] ICD-10 update of inactive term PLATT RESEARCH OTHER*[id number] 02/20/2007 ADVANCE DIRECTIVE INFORMATION 01/19/2005 Overview: Yes, [...] 11/17/19 23 LUMBAGO 12/24/2002 05/09/2007 LOC PRIM [id number] 12/24/200208/13 DEGENERATIVE SKIN DISORD 12/24/2002 VERTEBRAL FX [...] Centralized Clinical Pharmacy Services, Ilya Lafleur [address] [place] [address] [place] [address] [facility], [address] [place] [address] 12/11/2023 9:40 AM EDT Laboratory Laboratory [facility] Kayley [place] [address] [place] [phone] Kayley Lab [place] [address] [place] [address] [address] 12/11/2023 10:30 AM EDT Immunization/Injection Hematology/Oncology Treatment, [place] [address] [place] [address] Kayley, Chair 7 Hem Onc [facility] [address] [place] [address] 12/18/2023 12:30 PM EST Laboratory Laboratory [facility] [employer] [address] [place] [address] [address] Kayley Lab [place] [address] [place] [address] 12/18/2023 1:00 PM EST Office Visit Hematology/Oncology [facility] [place] [place] [address] [place] [address] [phone] Monse Coates MD [address] [place] [phone] 12/18/2023 1:30 PM EST Immunization/Injection Hematology/Oncology Treatment, [place] [address] [place] [phone] Kayley, Chair 7 Hem Onc Sc[address] [address] [place] [address] 12/25/2023 10:30 AM EST Laboratory Laboratory [facility] [place] [address] [place] [phone] Kayley, Lab Scenery [address] [place] [address] 01/19/2024 9:00 AM EST Office Visit Gastroenterology [address] [place] [address] Moon Avila CRNP [address] [place] [address] 02/20/2024 12:30 PM EST Nurse Only Ancillary [address] [place] [address] [place], Nurse [address] [place] [address] 03/08/2024 2:30 PM EST Office Visit Family Medicine [address] [place] [phone] [place] [address] 04/16/2024 3:00 PM EST Office Visit Nephrology [address] [place] [address] Jennifer Agustin MD [address] [place] [address] Scheduled Procedures Name Priority Associated Diagnoses Date/Ti [...] this encounter Medical Devices Implanted Type Area Webbing Tacker Device Identifier Shelf Expiration Date Model / Serial / Lot Shaft Fibula 6cm [id number] - [id number] Implanted:Qty: 1 on 09/05/2008 at [place] [facility] Tissue - Human N/A: Spine Cervical MUSCULOSKELETAL TRANSPLANT FND 04/20/2010 [id number] / [id number] / Stent Eso Gw 22x70 01016-689 - [id number] Implanted:Qty: 1 on 01/21/2008 at [place] [facility] N/A: Esophagus [employer] INC 04/12/2009 19109-981 / / [id number] Depuy Uniplate 32 Implanted:Qty: 1 on 09/05/2008 at [place] [facility] N/A: Spine Cervical TAMMY & TAMMY DEPUY 1897-02-302 / / Depuy Uniplate Screw 14mm Implanted:Qty: 2 on 09/05/2008 at [place] [facility] N/A: Spine Cervical TAMMY & TAMMY DEPUY 1897-06-017 / / Depuy Lordotic Bengal Cage Implanted:Qty: 1 on 05/07/2010 at [place] [facility] N/A: Neck 1773-06-146 / 1773-06-146 / Plate Zach 3 Level Ti 54mm - [id number] Implanted:Qty: 1 on 05/07/2010 at [place] [facility] N/A: Neck JNJ : DEPUY SPINE [id number] / / Screw Zach Const St Ti 14mm - [id number] Implanted:Qty: 4 on 05/07/2010 at [place] [facility] N/A: Neck JNJ : DEPUY SPINE [id number] 14 / / Screw 3.5x14 Mntr Fa [id number] - [id number] Implanted:Qty: 8 on 05/07/2010 at [place] [facility] N/A: Spine Cervical JNJ : ETHICON CARDIOVATIONS [id number] / / Jarrell [id number] - [id number] Implanted:Qty: 1 on 05/07/2010 at [place] [facility] N/A: Spine Cervical JNJ : ETHICON CARDIOVATIONS [id number] / / Screw Inner Mntr [id number] - [id number] Implanted:Qty: 8 on 05/07/2010 at [place] [facility] N/A: Spine Cervical JNJ : ETHICON CARDIOVATIONS [id number] / / Envista Intraocular Lens Implanted:Qty: 1 on 03/10/2022 by Liang Marshall MD at OR [facility] Right: Eye BAUSCH & LOMB 08/13/2023 [id number] / [id number] / [id number] Envista Intraocular Lens Implanted:Qty: 1 on 03/24/2022 by Liang Marshall MD at OR [facility] Left: Eye BAUSCH & LOMB 07/13/2024 [id number] / [id number] / [id number] documented as of this encounter Advance Directives Documents on File Type Date Recorded 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 No Care Teams Registered Dietitian Relationship Specialty Start Date End Date Jocelyne Desai DO [address] [place] [address] [place] [address] PCP - General Internal Medicine 11/09/16 documented as of this encounter
--- OUTSIDE RECORDS SUMMARY | 2024-01-29 17:50 | External Medical Summary | Summary of Care ---
Author Name Unknown Organization [facility] Address [address] [place] [address] Phone [phone] Care Team Providers Care Senior Technical Specialist Name Role Phone Jocelyne Desai Primary Care Provider [phone] Reason for Visit * Reason Onset Date Comments TRIAGE 11/21/2023 Encounter Details Date Type Department Care Team (Late st Contact Info) Description 11/21/2023 Telephone Vascular Surgery, [facility] [address] [facility] [address] Kaiden Woodall MD [address] [place] [address] TRIAGE Allergies No known active [...] [facility] for wound care [phone] Televideo if needed. Problem Noted Date Diagnosed [...] ICD-10 update of inactive term PLATT RESEARCH OTHER*[id number] 02/20/2007 ADVANCE DIRECTIVE INFORMATION 01/19/2005 Overview: Yes, [...] 11/17/19 23 LUMBAGO 12/24/2002 05/09/2007 LOC PRIM [id number] 12/24/200208/13 DEGENERATIVE SKIN DISORD 12/24/2002 VERTEBRAL FX [...] originally b/c pt unable to travel to [facility] or [facility] for vascular surgical procedures Pls cancel [facility] vascular procedures and schedule w/ Dr Cutler [facility] Vascular * Telephone Encounter - Briana Steward LPN - 11/22/2023 11:11 AM EDT Pt is scheduled on 12/21/[address] [facility] for testing. Briana Steward LPN 11/22/2023 [...] Pt is scheduled on 12/27/[address] Woodall in Briana Steward LPN 11/21/2023 9:33 AM documented in this encounter Plan of Treatment Upcoming Encounters Date Type Department Care Team (Late st Contact Info) Description 12/05/2023 6:30 AM EDT Anticoagulation Centralized Clinical Pharmacy Services, Ilya Lafleur [address] [place] [address] [place] [address] [facility], [address] [place] [address] 12/18/2023 1:00 PM EST Office Visit Hematology/Oncology [facility] 200 [facility] [place] [phone] Monse Coates MD [address] [place] [address] [place] [phone] 12/18/2023 1:30 PM EST Immunization/Injection Hematology/Oncology Treatment, [place] [address] [facility] [address] [place] [phone] Kayley, Chair 7 Hem Onc [facility] 200 [facility] [address] 12/21/2023 2:00 PM EST [facility] 132 [facility] [place] [address] 12/27/2023 1:10 PM EST Office Visit Vascular Surgery, [facility] 132 [facility] [place] [address] Kaiden Woodall MD [address] [place] [address] [place] [address] 01/19/2024 9:00 AM EST Office Visit Gastroenterology [address] [place] [address] Moon Avila CRNP 132 [facility] [place] [address] 02/20/2024 12:30 PM EST Nurse Only Ancillary [address] [place] [address] Mon[place], Nurse Annual [address] [place] [address] 03/08/2024 2:30 PM EST Office Visit Family Medicine [address] [place] [phone] Jocelyne Desai, [address] [place] [address] 04/16/2024 3:00 PM EST Office Visit Nephrology [address] [place] [address] Jennifer Agustin MD [address] [place] [address] Scheduled Orders Name Type Priority Associated Diagnoses [...] 10/0 05/2022, 11/09/2022, Additional history exists GFR 05/27/2024 11/27/2023, 1008/2023, 11/13/2023, Additional history exists Depression Screening 10/30/2024 10/31/2023 [...] this encounter Medical Devices Implanted Type Area Dietary Worker Device Identifier Shelf Expiration Date Model / Serial / Lot Shaft Fibula 6cm [id number] - [id number] Implanted:Qty: 1 on 09/05/2008 at OR [facility] Tissue - Human N/A: Spine Cervical MUSCULOSKELETAL TRANSPLANT FND 04/20/2010 796415 / [id number] 0P / Stent Eso Gw 22x70 41424-498 - [id number] Implanted:Qty: 1 on 01/21/2008 at OR [facility] N/A: Esophagus AL[employer]US INC 04/12/2009 18611-522 / / [id number] Depuy Uniplate 32 Implanted:Qty: 1 on 09/05/2008 [...] [facility] [place] N/A: Neck 1773-06-146 / 1773-146 / Plate Zach 3 Level Ti 54mm - [id number] Implanted:Qty: 1 on 05/07/2010 at OR [facility] N/A: Neck JNJ : DEPUY SPINE [id number] 54 / / Screw Zach Const St Ti 14mm - [id number] Implanted:Qty: 4 on 05/07/2010 at OR [facility] N/A: Neck JNJ : DEPUY SPINE [id number] 14 / / Screw 3.5x14 Mntr Fa [id number] - [id number] Implanted:Qty: 8 on 05/07/2010 at OR [facility] N/A: Spine Cervical JNJ : ETHICON CARDIOVATIONS [id number] / / Jarrell [id number] - [id number] Implanted:Qty: 1 on 05/07/2010 at OR [facility] N/A: Spine Cervical JNJ : ETHICON CARDIOVATIONS [id number] / / Screw Inner Mntr [id number] - [id number] Implanted:Qty: 8 on 05/07/2010 at OR [facility] N/A: Spine Cervical JNJ : ETHICON CARDIOVATIONS [id number] / / Envista Intraocular Lens Implanted:Qty: 1 on 03/10/2022 by Liang Marshall MD at OR [facility] Right: Eye BAUSCH & LOMB 08/13/2023 [id number] / [id number] / [id number] Envista Intraocular Lens Implanted:Qty: 1 on 03/24/2022 by Liang Marshall MD at OR [facility] Left: Eye BAUSCH & LOMB 07/13/2024 [id number] / [id number] / [id number] documented as of this encounter Visit Diagnoses Diagnosis ESRD (end stage renal disease) (HCC)- Primary End stage renal disease documented in this encounter Advance Directives Documents on File Type Date Recorded Patient Morning Nanny Expl anation POLST 01/26/2021 [place] OR [facility]-SUSTAINING TREATMENT [...] Power of Attor andrew? No Care Teams Senior Technical Specialist Relationship Specialty Start Date End Date Jocelyne Desai DO [address] [place] [address] [place] [address] PCP - General Internal Medicine 11/09/16 documented as of this encounter
--- OUTSIDE RECORDS SUMMARY | 2024-01-29 17:50 | External Medical Summary | Summary of Care ---
Author Name Unknown Organization [facility] Address [address] [facility] [place] [address] Phone [phone] Care Team Providers Care Chief Financial Officer Name Role Phone Jocelyne Desai Primary Care Provider [phone] Reason for Visit * Reason Onset Date Comments Appointment 12/04/2023 Encounter Details Date Type Department Care Team ([facility] st Contact Info) Description 12/04/2023 Telephone Hematology/Oncology [facility] [place] [address] [facility] [address] Monse Coates MD 400 [facility] [place] [address] Appointment Allergies No known active allergiesdocumented as of this encounter (statuses as of 12/06/2023) Medications Medication Sig Dispensed Refills Start Date [...] as of this encounter (statuses as of 12/06/2023) Active Problems Patient Care Coordination No te Formatting of this note migh t be different from the original. Good connectivity [facility] for wound care [phone] Televideo if needed. Problem Noted Date Diagnosed [...] up with podiatry,. Letter in chart from [facility] podiatry they were unable [...] ICD-10 update of inactive term PLATT RESEARCH OTHER*[id number] 02/20/2007 ADVANCE DIRECTIVE INFORMATION 01/19/2005 Overview: Yes, Patient instructed to provide copy of advance directive for provider to review and to be scanned into Electronic Medical Record No, Advance Directive brochure given to patient at prior appointment. SPINAL STENOSIS-LUMBAR 09/23/2002 Vitamin D deficiency Cervical spinal stenosis documented as of this encounter (statuses as of 12/06/2023) Resolved Problems Problem Noted Date Diagnosed Date Resolved Date Chronic kidney disease (CKD) , stage IV (severe) 09/27/2023 10/26/2023 Depression, unspecified 11/09/2021 03/ Depression, unspecified 11/09/202105/2022 Cellulitis of right leg 07/13/202105/2022 Last Assessment & Plan: Suspect this could be early/localized. Will treat with 7 days antibiotic. If pt cannot be reassess by Dr. Braxton office early next week will need [facility] provider recheck Multiple and open [...] 11/17/19 23 LUMBAGO 12/24/2002 05/09/2007 LOC PRIM [id number] 12/24/200208/13 DEGENERATIVE SKIN DISORD 12/24/2002 VERTEBRAL FX [...] as of this encounter (statuses as of 12/06/2023) Immunizations Name Administration Dates Next Due COVID-19 [...] Description 12/11/2023 9:40 AM EDT Laboratory Laboratory [facility] [place] [address] [place] [phone] Presley Zaldivar [address] [place] [address] 12/11/2023 10:30 AM EDT Immunization/Injection Hematology/Oncology Treatment, [place] [address] [place] [phone] Kayley, Chair [address] [facility] [address] [place] [address] 12/13/2023 6:45 PM EDT Anticoagulation Centralized Clinical Pharmacy Services, Ilya Lafleur [address] [place] [address] [place] [address] [place] [address] 12/18/2023 12:30 PM EST Laboratory Laboratory [place] [address] [place] [address] Kayley Lab [place] [address] [place] [address] [address] 12/18/2023 1:00 PM EST Office Visit Hematology/Oncology [place] Gallo Zaldivar [address] [place] [phone] Monse Coates MD [address] [place] [phone] 12/18/2023 1:30 PM EST Immunization/Injection Hematology/Oncology Treatment, [place] [address] [place] [phone] Kayley, Chair 7 Hem Onc [place] [address] [place] [address] 12/25/2023 10:30 AM EST Laboratory Laboratory [facility] [place] [address] [place] [phone] Kayley, Lab Scenery [address] [place] [address] 01/19/2024 9:00 AM EST Office Visit Gastroenterology [address] [place] [address] Moon Avila CRNP [address] [place] [address] 02/20/2024 12:30 PM EST Nurse Only Ancillary [address] [place] [address] [place], Nurse [address] [place] [address] 03/08/2024 2:30 PM EST Office Visit Family Medicine [address] [place] [phone] [address] [place] [address] 04/16/2024 3:00 PM EST Office Visit Nephrology [address] [place] [address] Jennifer Agustin MD [address] [place] [address] Scheduled Procedures Name Priority Associated Diagnoses Date/Ti [...] this encounter Medical Devices Implanted Type Area Screening Tech Device Identifier Shelf Expiration Date Model / Serial / Lot Shaft Fibula 6cm [id number] - [id number] Implanted:Qty: 1 on 09/05/2008 at OR [facility] Tissue - Human N/A: Spine Cervical MUSCULOSKELETAL TRANSPLANT FND 04/20/2010 [id number] / [id number] 0P / Stent Eso Gw 22x70 64216-973 - [id number] Implanted:Qty: 1 on 01/21/2008 at OR [facility] N/A: Esophagus ALVE[employer]US INC 04/12/2009 21794-046 / / [id number] Depuy Uniplate 32 Implanted:Qty: 1 on 09/05/2008 [...] Plate Zach 3 Level Ti 54mm - [id number] Implanted:Qty: 1 on 05/07/2010 at OR [facility] N/A: Neck JNJ : DEPUY SPINE [id number] 54 / / Screw Zach Const St Ti 14mm - [id number] Implanted:Qty: 4 on 05/07/2010 at OR [facility] N/A: Neck JNJ : DEPUY SPINE [id number] 14 / / Screw 3.5x14 Mntr Fa [id number] - [id number] Implanted:Qty: 8 on 05/07/2010 at OR [facility] N/A: Spine Cervical JNJ : ETHICON CARDIOVATIONS [id number] / / Jarrell 3.0x224ri [id number] - [id number] Implanted:Qty: 1 on 05/07/2010 at OR [facility] N/A: Spine Cervical JNJ : ETHICON CARDIOVATIONS [id number] / / Screw Inner Mntr [id number] - [id number] Implanted:Qty: 8 on 05/07/2010 at OR [facility] N/A: Spine Cervical JNJ : ETHICON CARDIOVATIONS [id number] / / Envista Intraocular Lens Implanted:Qty: 1 on 03/10/2022 by Liang Marshall MD at OR [facility] Right: Eye BAUSCH & LOMB 08/13/2023 [id number] / [id number] / [id number] Envista Intraocular Lens Implanted:Qty: 1 on 03/24/2022 by Liang Marshall MD at OR [facility] Left: Eye BAUSCH & LOMB 07/13/2024 [id number] / [id number] / [id number] documented as of this encounter Advance Directives Documents on File Type Date Recorded Patient Industrial Chemistry Teacher Expl anation POLST 01/26/2021 [place] OR [facility] FOR [...] Power of Attor andrew? No Care Teams Chief Financial Officer Relationship Specialty Start Date End Date Jocelyne Desai DO [address] [place] [address] [place] [address] PCP - General Internal Medicine 11/09/16 documented as of this encounter
--- OUTSIDE RECORDS SUMMARY | 2024-01-29 17:51 | External Medical Summary | Summary of Care ---
Author Name Unknown Organization [facility] Address [address] [facility] [place] [address] Phone [phone] Care Team Providers Care Bellmaker Name Role Phone Jocelyne Desai DO Primary Care Provider + [phone] Encounter Details Date Type Department Care Team (Late st Contact Info) Description 12/01/2023 Population Health External Data Unspecified Department Allergies No known active allergiesdocumented as of this encounter (statuses as of 12/01/2023) Medications Medication Sig Dispensed Refills Start Date [...] as of this encounter (statuses as of 12/01/2023) Active Problems Patient Care Coordination No te Formatting of this note migh t be different from the original. Good connectivity [facility] for wound care [phone] Televideo if needed. Problem Noted Date Diagnosed [...] up with podiatry,. Letter in chart from [facility] podiatry they were unable to get in [...] ICD-10 update of inactive term PLATT RESEARCH OTHER*[id number] 02/20/2007 ADVANCE DIRECTIVE INFORMATION 01/19/2005 Overview: Yes, Patient instructed to provide copy of advance directive for provider to review and to be scanned into Electronic Medical Record No, Advance Directive brochure given to patient at prior appointment. SPINAL STENOSIS-LUMBAR 09/23/2002 Vitamin D deficiency Cervical spinal stenosis documented as of this encounter (statuses as of 12/01/2023) Resolved Problems Problem Noted Date Diagnosed Date [...] 11/17/19 23 LUMBAGO 12/24/2002 05/09/2007 LOC PRIM [id number] 12/24/200208/13 DEGENERATIVE SKIN DISORD 12/24/2002 VERTEBRAL FX [...] as of this encounter (statuses as of 12/01/2023) Immunizations Name Administration Dates Next Due COVID-19 [...] No 10/31/2023 Does the household have a [facility] source of income? (Household - for [...] Team (Late st Contact Info) Description 12/04/2023 9:40 AM EDT Laboratory Laboratory Cely Zaldivar [place] [address] [place] [phone] [place] [address] 12/04/2023 10:00 AM EDT Office Visit Hematology/Oncology State Gallo Henley [address] [place] [phone] Monse Coates MD [address] [place] [address] 12/04/2023 10:30 AM EDT Immunization/Injection Hematology/Oncology Treatment, [place] [address] [place] [address] Park, Chair 7 Hem Onc Scenery [address] [place] [address] 12/05/2023 6:30 AM EDT Anticoagulation Centralized Clinical Pharmacy Services, Ilya Lafleur [address] [place] [address] [place] [address] Ccps, [address] [place] [address] 12/21/2023 2:00 PM EST Imaging Vascular Lab, [facility] 2nd [facility] [address] [place] [address] 12/27/2023 1:10 PM EST Office Visit Vascular Surgery, [facility] [address] [place] [address] Kaiden Woodall MD [address] [facility] [place] [address] 01/19/2024 9:00 AM EST Office Visit Gastroenterology [address] [place] [address] Moon Avila CRNP [address] [place] [address] 02/20/2024 12:30 PM EST Nurse Only Ancillary [address] [place] [address] [place], Nurse [address] [place] [address] 03/08/2024 2:30 PM EST Office Visit Family Medicine [address] [place] [phone] Jocelyne Desai[address] [place] [address] 04/16/2024 3:00 PM EST Office Visit Nephrology [address] [place] [address] Jennifer Agustin MD [address] [place] [address] Scheduled Procedures Name Priority Associated Diagnoses Date/Ti [...] 100 05/2022, 11/09/2022, Additional history exists GFR 05/27/2024 11/27/2023, 100 08/2023, 11/13/2023, Additional history exists Depression Screening 10/30/2024 [...] this encounter Medical Devices Implanted Type Area Milling Machine Tender Device Identifier Shelf Expiration Date Model / Serial / Lot Shaft Fibula 6cm [id number] - [id number] Implanted:Qty: 1 on 09/05/[address] [facility] [place] Tissue - Human N/A: Spine Cervical MUSCULOSKELETAL TRANSPLANT FND 04/20/2010 [id number] / [id number] / Stent Eso Gw 22x70 [id number] - [id number] Implanted:Qty: 1 on 01/21/[address] [facility] [place] N/A: Esophagus [employer] 04/12/2009 48213-039 / / [id number] Depuy Uniplate 32 Implanted:Qty: 1 on 09/05/[address] [facility] [place] N/A: Spine Cervical TAMMY & TAMMY DEPUY 1897-02-302 / / Depuy Uniplate Screw 14mm Implanted:Qty: 2 on 09/05/[address] [facility] [place] N/A: Spine Cervical TAMMY & TAMMY DEPUY 1897-06-017 / / Depuy Lordotic Bengal Cage Implanted:Qty: 1 on 05/07/[address] [facility] [place] N/A: Neck 1773-06-146 / 1773-06-146 / Plate Zach 3 Level Ti 54mm - [id number] Implanted:Qty: 1 on 05/07/[address] [facility] [place] N/A: Neck JNJ : DEPUY SPINE [id number] / / Screw Zach Const St Ti 14mm - [id number] Implanted:Qty: 4 on 05/07/[address] [facility] [place] N/A: Neck JNJ : DEPUY SPINE [id number] 14 / / Screw 3.5x14 Mntr Fa [id number] - [id number] Implanted:Qty: 8 on 05/07/[address] [facility] [place] N/A: Spine Cervical JNJ : ETHICON CARDIOVATIONS [id number] / / Jarrell [id number] - [id number] Implanted:Qty: 1 on 05/07/[address] [facility] [place] N/A: Spine Cervical JNJ : ETHICON CARDIOVATIONS [id number] / / Screw Inner Mntr [id number] - [id number] Implanted:Qty: 8 on 05/07/[address] [facility] [place] N/A: Spine Cervical JNJ : ETHICON CARDIOVATIONS [id number] / / Envista Intraocular Lens Implanted:Qty: 1 on 03/10/2022 by Liang Marshall MD at OR [facility] Right: Eye BAUSCH & LOMB 08/13/2023 [id number] / [id number] / [id number] Envista Intraocular Lens Implanted:Qty: 1 on 03/24/2022 by Liang Marshall MD at OR [facility] Left: Eye BAUSCH & LOMB 07/13/2024 [id number] / [id number] / [id number] documented as of this encounter Advance Directives Documents on File Type Date Recorded Patient Medical Professionals Expl anation POLST 01/26/2021 [place] OR [facility] FOR LIFE-SUSTAINING TREATMENT * No Code [...] Power of Attor andrew? No Care Teams Bellmaker Relationship Specialty Start Date End Date Jocelyne Desai DO [address] [place] [address] [place] [address] PCP - General Internal Medicine 11/09/16 documented as of this encounter
--- OUTSIDE RECORDS SUMMARY | 2024-01-29 17:51 | External Medical Summary | Summary of Care ---
Author Name Unknown Organization [facility] Address [address] [facility] [place] [address] Phone [phone] Care Team Providers Care Repairer Handtools Name Role Phone Jocelyne Desai DO Primary Care Provider + [phone] Encounter Details Date Type Department Care Team (Late st Contact Info) Description 12/04/2023 Population Health External Data Unspecified Department Allergies [...] connectivity [facility] for wound care [phone] Televideo if needed. Problem Noted Date Diagnosed [...] up with podiatry,. Letter in chart from [facility] podiatry they were unable to get [...] ICD-10 update of inactive term PLATT RESEARCH OTHER*[id number] 02/20/2007 ADVANCE DIRECTIVE INFORMATION 01/19/2005 Overview: Yes, [...] 11/17/19 23 LUMBAGO 12/24/2002 05/09/2007 LOC PRIM [id number] 12/24/200208/13 DEGENERATIVE SKIN DISORD 12/24/2002 VERTEBRAL FX [...] No 10/31/2023 Does the household have a [facility] source of income? (Household - for [...] 9:40 AM EDT Laboratory Laboratory Cely Zaldivar [place] [address] [place] [phone] [place] [address] 12/04/2023 10:00 AM EDT Office Visit Hematology/Oncology State Gallo Henley [address] [place] [place] [place] [phone] Monse Coates MD [address] [place] [address] 12/04/2023 10:30 AM EDT Immunization/Injection Hematology/Oncology Treatment, [place] [address] [place] [phone] Park, Chair 7 Hem Onc Scenery [address] [place] [address] 12/05/2023 6:30 AM EDT Anticoagulation Centralized Clinical Pharmacy Services, Ilya Lafleur [address] [place] [address] [place] [address] Ccps, [address] [place] [address] 12/21/2023 2:00 PM EST Imaging Vascular Lab, [facility] 2nd [facility] [address] [place] [address] 12/27/2023 1:10 PM EST Office Visit Vascular Surgery, [facility] [address] [place] [address] Kaiden Woodall MD [address] [facility] [place] [address] 01/19/2024 9:00 AM EST Office Visit Gastroenterology [address] [place] [address] Moon Avila CRNP [address] [place] [address] 02/20/2024 12:30 PM EST Nurse Only Ancillary [address] [place] [address] [place], Nurse [address] [place] [address] 03/08/2024 2:30 PM EST Office Visit Family Medicine [address] [place] [phone] Jocelyne Desai[address] [place] [address] 04/16/2024 3:00 PM EST Office Visit Nephrology [address] [place] [address] Jennifer Agustin MD [address] [place] [address] Scheduled Procedures Name Priority Associated Diagnoses Date/Ti [...] this encounter Medical Devices Implanted Type Area Practice Representative Device Identifier Shelf Expiration Date Model / Serial / Lot Shaft Fibula 6cm 095573 - [id number] Implanted:Qty: 1 on 09/05/2008 at OR [facility] [place] Tissue - Human N/A: Spine Cervical MUSCULOSKELETAL TRANSPLANT FND 04/20/2010 [id number] / [id number] 0P / Stent Eso Gw 22x70 64437-447 - [id number] Implanted:Qty: 1 on 01/21/2008 at OR [facility] [place] N/A: Esophagus [employer]US INC 04/12/2009 18820-234 / / [id number] Depuy Uniplate 32 Implanted:Qty: 1 on 09/05/2008 at OR [facility] [place] N/A: Spine Cervical TAMMY & TAMMY DEPUY 1897-02-302 / / Depuy Uniplate Screw 14mm Implanted:Qty: 2 on 09/05/2008 at OR [facility] [place] N/A: Spine Cervical TAMMY & TAMMY DEPUY 1897-06-017 / / Depuy Lordotic Bengal Cage Implanted:Qty: 1 on 05/07/2010 at OR [facility] [place] N/A: Neck 1773-06-146 / 1773-06-146 / Plate Zach 3 Level Ti 54mm - [id number] Implanted:Qty: 1 on 05/07/2010 at OR [facility] [place] N/A: Neck JNJ : DEPUY SPINE [id number] 54 / / Screw Zach Const St Ti 14mm - [id number] Implanted:Qty: 4 on 05/07/2010 at OR [facility] [place] N/A: Neck JNJ : DEPUY SPINE [id number] 14 / / Screw 3.5x14 Mntr Fa [id number] - [id number] Implanted:Qty: 8 on 05/07/2010 at OR [facility] [place] N/A: Spine Cervical JNJ : ETHICON CARDIOVATIONS [id number] / / Jarrell [id number] - [id number] Implanted:Qty: 1 on 05/07/2010 at OR [facility] [place] N/A: Spine Cervical JNJ : ETHICON CARDIOVATIONS [id number] / / Screw Inner Mntr [id number] - [id number] Implanted:Qty: 8 on 05/07/2010 at OR [facility] [place] N/A: Spine Cervical JNJ : ETHICON CARDIOVATIONS [id number] / / Envista Intraocular Lens Implanted:Qty: 1 on 03/10/2022 by Liang Marshall MD at OR [facility] Right: Eye BAUSCH & LOMB 08/13/2023 [id number] / [id number] / [id number] Envista Intraocular Lens Implanted:Qty: 1 on 03/24/2022 by Liang Marshall MD at OR [facility] Left: Eye BAUSCH & LOMB 07/13/2024 [id number] / [id number] / [id number] documented as of this encounter Advance Directives Documents on File Type Date Recorded Patient Editor City Expl anation POLST 01/26/2021 [place] [facility] AT [...] Power of Attor andrew? No Care Teams Repairer Handtools Relationship Specialty Start Date End Date Jocelyne Desai DO [address] [place] [address] [place] [address] PCP - General Internal Medicine 11/09/16 documented as of this encounter
--- OUTSIDE RECORDS SUMMARY | 2024-01-29 17:51 | External Medical Summary ---
Author Name Unknown Address Unknown Organization [facility] [place] [address] Laboratory Report Ordering Provider Test Date Status KUSHAL DOUGHERTY 12/04/2023 10:05:02 Final Observation Date Value Abnormality Reference (Units ) Status BUN 12/04/2023 10:05:02 74 Above high normal 6-20 (mg/dL) Final Creatinine 12/04/2023 10:05:02 4.1 Above high normal 0.6-1.2 (mg/dL) Final Glomerular filtration rate/1.73 sq M.predicted [Volume Rate/Area] in Serum, Plasma or Blood by Creatinine-based formula (CKD-EPI) 12/04/2023 10:05:02 15 Below low normal >=60 (mL/min) Final eGFR is calculated based on the CKD-EPI 2020 equation. Sodium 12/04/2023 10:05:02 142 135-146 (m mol/L) Final Potassium 12/04/2023 10:05:02 4.4 3.5-5.1 (m mol/L) Final Cl 12/04/2023 10:05:02 107 98-107 (mm ol/L) Final CO2 12/04/2023 10:05:02 20 Below low normal 22- 32 (mmol/L) Final Anion gap 12/04/2023 10:05:02 15 7-15 (mmol /L) Final Glucose 12/04/2023 10:05:02 105 70-120 (mg /dL) Final Calcium 12/04/2023 10:05:02 7.8 Below low normal 8.4 -10.2 (mg/dL) Final Performing Location [facility] [place] [address]
--- OUTSIDE RECORDS SUMMARY | 2024-01-29 17:51 | External Medical Summary ---
Author Name Unknown Address Unknown Organization [facility] [place] [place] [address] Laboratory Report Ordering Provider Test Date Status ENMANUEL REARDON 12/04/2023 10:05:02 Final Observation Date Value Abnormality Reference (Units ) Status WBC, Total 12/04/2023 10:05:02 4.92 4.00-10.8 0 (K/uL) Final RBC 12/04/2023 10:05:02 3.11 4.50-5.25 (M/uL) Final Hemoglobin 12/04/2023 10:05:02 9.0 Below low normal 14 .0-16.8 (g/dL) Final HCT 12/04/2023 10:05:02 29.7 Below low normal 40. 0-48.4 (%) Final MCV 12/04/2023 10:05:02 95.5 82.0-99.5 (fL) Final MCH 12/04/2023 10:05:02 28.9 27.0-34.0 (pg) Final MCHC 12/04/2023 10:05:02 30.3 32.0-36.0 (g/dL) Final RDW 12/04/2023 10:05:02 19.6 11.5-15.5 (%) Final Platelets 12/04/2023 10:05:02 188 140-400 (K /uL) Final MPV 12/04/2023 10:05:02 9.2 6.6-11.1 ( fL) Final Performing Location [facility] [place] [place] [address]
--- OUTSIDE RECORDS SUMMARY | 2024-01-29 17:51 | External Medical Summary | Summary of Care ---
Author Name Unknown Organization [facility] Address [address] [facility] [address] Phone [phone] Care Team Providers Care Manager Hydraulic Name Role Phone DesaiElissaJocelynejohn Briggs Primary Care Provider + [phone] Reason for Visit * Reason Comments Outpatient Testing Encounter Details Date Type Department Care Team (Late st Contact Info) Description 12/04/2023 9:40 AM EDT Laboratory Laboratory [facility] [place] [address] [place] [address] [facility] Lab Scenery [address] [place] [address] 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); Iron deficiency anemia due to chronic blood loss; Stage 4 chronic kidney disease (HCC); Other hypervolemia Allergies No known active allergiesdocumented as of [...] be different from the original. Good connectivity [facility] for wound care [phone] Televideo if needed. Problem Noted Date Diagnosed [...] ICD-10 update of inactive term PLATT RESEARCH OTHER*[id number] 02/20/2007 ADVANCE DIRECTIVE INFORMATION 01/19/2005 Overview: Yes, [...] 09/27/2023 10/26/2023 Depression, unspecified 11/09/202104/14 Depression, unspecified 11/09/20210 05/2022 Cellulitis of right leg 07/13/202105/2022 Last Assessment & Plan: Suspect this could be early/localized. Will treat with 7 days antibiotic. If pt cannot be reassess by Dr. Braxton office early next week will need [facility] provider recheck Multiple and [...] 11/17/19 23 LUMBAGO 12/24/2002 05/09/2007 LOC PRIM [id number] 12/24/200208/13 DEGENERATIVE SKIN DISORD 12/24/2002 VERTEBRAL FX [...] Contact Info) Description 12/04/2023 10:30 AM EDT Immunization/Injection Hematology/Oncology Treatment, [place] [address] [place] [address] Kayley, Chair 7 Hem Onc Scenery [address] [place] [address] Arrived 12/05/2023 6:30 AM EDT Anticoagulation Centralized Clinical Pharmacy Services, Ilya Lafleur [address] [place] [address] [place] [address] [facility], [address] [place] [address] 12/21/2023 2:00 PM EST Imaging Vascular Lab[facility] [address] [facility] [place] [address] 12/27/2023 1:10 PM EST Office Visit Vascular Surgery, [facility] [address] [facility] [place] [address] Kaiden Woodall MD [address] [place] [address] 01/19/2024 9:00 AM EST Office Visit Gastroenterology [address] [place] [address] Moon Avila CRNP 132 [facility] [place] [address] 02/20/2024 12:30 PM EST Nurse Only Ancillary [address] [place] [address] [place], Nurse [address] [place] [address] 03/08/2024 2:30 PM EST Office Visit Family Medicine [address] [place] [phone] Jocelyne Desai[address] [place] [address] 04/16/2024 3:00 PM EST Office Visit Nephrology [address] [place] [address] Jennifer Agustin MD 200 [facility] [place], [place] [address] Pending Results Name Type Priority Associated Diagnoses Date /Time BASIC METABOLIC PANEL Lab Routine Stage 4 chronic kidney disease (HCC) Other hypervolemia 12/04/2023 10:05 AM EDT Scheduled Procedures Name Priority Associated [...] 11/09/2022, Additional history exists GFR 05/27/2024 11/27/2023, 10/0 08/2023, 11/13/2023, Additional history exists Depression Screening [...] this encounter Medical Devices Implanted Type Area Outpatient Clerk Device Identifier Shelf Expiration Date Model / Serial / Lot Shaft Fibula 6cm 001452 - [id number] Implanted:Qty: 1 on 09/05/2008 [place] [facility] [place] Tissue - Human N/A: Spine Cervical MUSCULOSKELETAL TRANSPLANT FND 04/20/2010 211762 / [id number] 0P / Stent Eso Gw 22x70 16720-615 - [id number] Implanted:Qty: 1 on 01/21/2008 at [place] [facility] [place] N/A: Esophagus ALVE[employer]US INC 04/12/2009 48490-674 / / [id number] Depuy Uniplate 32 Implanted:Qty: 1 on 09/05/2008 [...] [facility] [place]/A: Neck 1773-06-146 / 1773-06-146 / Plate Zach 3 Level Ti 54mm - [id number] Implanted:Qty: 1 on 05/07/2010 at [place] [facility] [place] N/A: Neck JNJ : DEPUY SPINE [id number] 54 / / Screw Zach Const St Ti 14mm - [id number] Implanted:Qty: 4 on 05/07/2010 at [place] [facility] N/A: Neck JNJ : DEPUY SPINE [id number] 14 / / Screw 3.5x14 Mntr Fa [id number] - [id number] Implanted:Qty: 8 on 05/07/2010 at [place] [facility] [place] N/A: Spine Cervical JNJ : ETHICON CARDIOVATIONS [id number] / / Jarrell 3.0p222ff [id number] - [id number] Implanted:Qty: 1 on 05/07/2010 at [place] [facility] [place] N/A: Spine Cervical JNJ : ETHICON CARDIOVATIONS [id number] / / Screw Inner Mntr [id number] - [id number] Implanted:Qty: 8 on 05/07/2010 at [place] [facility] [place] N/A: Spine Cervical JNJ : ETHICON CARDIOVATIONS [id number] / / Envista Intraocular Lens Implanted:Qty: 1 on 03/10/2022 by Liang Marshall MD at OR [facility] Right: Eye BAUSCH & LOMB 08/13/2023 [id number] / [id number] / [id number] Envista Intraocular Lens Implanted:Qty: 1 on 03/24/2022 by Liang Marshall MD at OR [facility] Left: Eye BAUSCH & LOMB 07/13/2024 [id number] / [id number] / [id number] documented as of this encounter Procedures Procedure Name Priority Date/Time Associated Diagnosis Comments DIFFERENTIAL, AUTOMATED STAT 12/04/2023 10:05 AM EDT 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) Iron deficiency anemia due to chronic blood loss CBC STAT 12/04/2023 10:05 AM EDT 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) Iron deficiency anemia due to chronic blood loss CBC STAT 12/04/2023 10:05 AM EDT 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) Iron deficiency anemia due to chronic blood loss documented in this encounter Results * (ABNORMAL) DIFFERENTIAL, AUTOMATED (12/04/2023 10:05 AM EDT) WBC 4.92 4.00 - 10.80 K/uL 12/04/2023 10:09 AM EDT [facility] 56-02 Neutrophils % 69.1 40.0 - 75.0 % 12/04/2023 10:09 AM EDT [facility] 56-02 Lymphocytes % 16.5(L) 18.0 - 42.0 % 12/04/2023 10:09 AM EDT [facility] 56 Monocytes % 8.9 1.0 - 11.0 % 12/04/2023 10:09 AM EDT [facility] 56 Eosinophils % 5.3 0.0 - 6.0 % 12/04/2023 10:09 AM EDT [facility] 56 Basophils % 0.2 0.0 - 2.0 % 12/04/2023 10:09 AM EDT [facility] 56 Absolute Neutrophils 3.40 1.80 - 7.70 K/uL 12/04/2023 10:09 AM EDT [facility] 56 Absolute Lymphocytes 0.81(L) 1.00 - 4.80 K/ul 12/04/2023 10:09 AM EDT [facility] 56 Absolute Monocytes 0.44 0.00 - 1.10 K/uL 12/04/2023 10:09 AM EDT [facility] 56 Absolute Eosinophils 0.26 0.00 - 0.70 K/uL 12/04/2023 10:09 AM EDT [facility] 56 Absolute Basophils 0.01 0.00 - 0.20 K/uL 12/04/2023 10:09 AM T [facility] Blood Venous blood specimen / Unknown Venipuncture / Unknown 12/04/2023 10:05 AM EDT 12/04/2023 10:05 AM EDT Monse Coates MD LAB BLOOD ORDERABLES [facility] [address] [place] [address] * (ABNORMAL) CBC (12/04/2023 10:05 AM EDT) WBC 4.92 4.00 - 10.80 K/uL 12/04/2023 10:09 AM EDT [facility] 56 RBC 3.11 4.50 - 5.25 M/uL 12/04/2023 10:09 AM EDT [address] HGB 9.0(L) 14.0 - 16.8 g/dL 12/04/2023 10:09 AM EDT [facility] 56 HCT 29.7(L) 40.0 - 48.4 % 12/04/2023 10:09 AM EDT [facility] 56 MCV 95.5 82.0 - 99.5 fL 12/04/2023 10:09 AM EDT [address] MCH 28.9 27.0 - 34.0 pg 12/04/2023 10:09 AM EDT [address] MCHC 30.3 32.0 - 36.0 g/dL 12/04/2023 10:09 AM EDT [address] RDW 19.6 11.5 - 15.5 % 12/04/2023 10:09 AM EDT [facility] 56 PLT 188 140 - 400 K/uL 12/04/2023 10:09 AM EDT [address] MPV 9.2 6.6 - 11.1 fL 12/04/2023 10:09 AM EDT [address] Blood Venous blood specimen / Unknown Venipuncture / Unknown 12/04/2023 10:05 AM EDT 12/04/2023 10:05 AM EDT Monse Coates MD LAB BLOOD ORDERABLES [address] [place] [address] documented in this encounter Visit Diagnoses Diagnosis 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) Iron deficiency anemia due to chronic blood loss Iron deficiency anemia secondary to blood loss (chronic) Stage 4 chronic kidney disease (HCC) Other hypervolemia documented in this encounter Advance Directives Documents on File Type Date Recorded Patient 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 No Care Teams Manager Hydraulic Relationship Specialty Start Date End Date Jocelyne Desai DO [address] [place] [address] [place] [address] PCP - General Internal Medicine 11/09/16 documented as of this encounter
--- OUTSIDE RECORDS SUMMARY | 2024-01-29 17:51 | External Medical Summary ---
Author Name Unknown Address Unknown Organization K09[facility] [place] [address] Laboratory Report Ordering Provider Test Date Status ENMANUEL REARDON 12/04/2023 10:05:02 Final Observation Date Value Abnormality Reference (Units ) Status SYNC LEUKOCYTES IN BLOOD BY AUTOMATED COUNT 12/04/2023 10:05:02 4.92 4.00-10.80 (K/uL) Final Segs 12/04/2023 10:05:02 69.1 40.0-75.0 (%) Final Lymphs % 12/04/2023 10:05:02 16.5 Below low normal 18.0-42.0 (%) Final Monos 12/04/2023 10:05:02 8.9 1.0-11.0 (%) Final Eosinophils 12/04/2023 10:05:02 5.3 0.0-6.0 (%) Final Basos 12/04/2023 10:05:02 0.2 0.0-2.0 (%) Final Absolute Segs 12/04/2023 10:05:02 3.40 1.80-7.70 (K/uL) Final Lymphs, absolute 12/04/2023 10:05:02 0.81 Below low normal 1.00-4.80 (K/ul) Final Monos, Abs 12/04/2023 10:05:02 0.44 0.00-1.10 (K/uL) Final Eos, Abs 12/04/2023 10:05:02 0.26 0.00-0.70 (K/uL) Final Basos, Abs 12/04/2023 10:05:02 0.01 0.00-0.20 (K/uL) Final Performing Location [facility] [place] [address]
--- OUTSIDE RECORDS SUMMARY | 2024-01-29 17:51 | External Medical Summary | Summary of Care ---
Author Name Unknown Organization [facility] Address [address] [facility] [place] [address] Phone [phone] Care Team Providers Care Reinspector Name Role Phone Silvia Armas Primary Care Provider + [phone] Reason for Referral * Evaluate & Treat - Unlimited Visits (Within 10 days (routine)) - Authorized Specialty Diagnoses / Procedures Referred By Contact Referred To Contact Vascular Surgery / Cardiovascular Surgery Diagnoses Stage 4 chronic kidney disease (HCC) Jennifer Agustin MD [address] [address] Referral ID Status Reason Start Date Expiration Date Visits Requested Visits Authorized [id number] Authorized Specialty Services Required 11/20/2023 999 999 Question Answer Referral Priority Within 10 days (routine) Where should this appointment be scheduled? External What condition is the patient being seen for? Dialysis access Comments Pls evaluate for AVF/AVG Reason for Visit * Reason Comments Hospital Follow-Up Chronic Kidney Disease (CKD) Encounter Details Date Type Department Care Team (Late st Contact Info) Description 11/20/2023 2:00 PM EDT Office Visit Nephrology, Cely Z[place] [address] [place] [phone] Jennifer Agustin MD [address] [place] [address] [phone] JORGE (acute kidney injury) (HCC)*; Stage 4 chronic kidney disease (HCC); Persistent proteinuria; Hypertension goal BP (blood pressure) < 130/80; 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); Metabolic acidosis; Other hypervolemia Allergies No known active allergiesdocumented as of this encounter (statuses as of 11/30/2023) Medications Medication Sig Dispensed Refills Start Date [...] Oral Tablet Chewable Take by mouth. Active Doxycycline Hyclate 100 MG Oral Tablet Delayed Release Take 1 Tablet by mouth in the morning and 1 Tablet before bedtime. Active Sodium Bicarbonate 650 MG Oral Tablet Take 2 Tablets by mouth in the morning and 2 Tablets before bedtime. 360 Tablet 3 4 Active Torsemide 20 MG Oral Tablet (Demadex) Take 2 Tablets by mouth in the morning. 180 Tablet 1 4 Active Midodrine HCl 2.5 MG Oral Tablet (Proamatine) Take 1 Tablet by mouth in the morning and 1 Tablet at noon and 1 Tablet in the evening. 90 Tablet 2 4 11/20/19 24 Discontinued Torsemide 20 MG Oral Tablet (Demadex) Take 1 Tablet by mouth in the morning. 100 Tablet 1 4 11/20/19 24 Discontinued Potassium Chloride Candi ER 20 MEQ Oral Tablet Extended Release Take 1 Tablet by mouth in the morning. 100 Tablet 1 4 11/20/19 24 Discontinued Potassium Chloride Candi ER 20 MEQ Oral Tablet Extended Release Take one tablet TWICE daily Mon, Wed, Fri and one tablet ONCE daily other days of week 120 Tablet 1 4 11/23/19 24 Discontinued(Ref ill) documented as of this encounter (statuses as of 11/30/2023) Active Problems Patient Care Coordination No te Formatting of this note migh t be different from the original. Good connectivity [facility] for wound care [phone] Televideo if needed. Problem Noted Date Diagnosed [...] with podiatry,. Letter in chart from [facility] podiatry they were unable to [...] ICD-10 update of inactive term PLATT RESEARCH OTHER*[id number] 02/20/2007 ADVANCE DIRECTIVE INFORMATION 01/19/2005 Overview: Yes, Patient instructed to provide copy of advance directive for provider to review and to be scanned into Electronic Medical Record No, Advance Directive brochure given to patient at prior appointment. SPINAL STENOSIS-LUMBAR 09/23/2002 Vitamin D deficiency Cervical spinal stenosis documented as of this encounter (statuses as of 11/30/2023) Resolved Problems Problem Noted Date Diagnosed Date [...] 11/17/19 23 LUMBAGO 12/24/2002 05/09/2007 LOC PRIM [id number] 12/24/200208/13 DEGENERATIVE SKIN DISORD 12/24/2002 VERTEBRAL FX [...] as of this encounter (statuses as of 11/30/2023) Immunizations Name Administration Dates Next Due COVID-19 mRNA, LNP-s, No Pre serve, 2-Dose Series (Moderna) 03/19/2020 COVID-19 mRNA, LNP-s, No Pre serve, 2-Dose Series (Pfizer) 02/16/2021,04/09/2020,03/19/2020 COVID-19, MRNA-LNP, 23-24, P F, 30 MCG/0.3 mL, 12 YRS AND ABOVE, IM (ArticleAlley-Comirnaty) 11/16/2022 Covid-19, Mrna, Lnp-s, Pf, B ivalent, [...] Sign Reading Time Taken Comments Blood Pressure 146/77 11/20/2023 2:24 PM EDT Pulse 85 11/20/2023 2:24 PM EDT Temperature 36.2 C (97.2 F) 11/20/2023 2:24 PM ED T Respiratory Rate - - Oxygen Saturation - - Inhaled Oxygen Concentration - - Weight 96.6 kg (213 lb) 11/20/2023 2:24 PM EDT Height - - Body Mass Index 29.71 11/06/2023 1:54 PM EDT documented in this encounter Patient Instructions * Patient Instructions* Jennifer Agustin MD - 11/20/2023 3:02 PM EDT -start sodium bicarbonate 1300 mg twice daily -we will reach out to [facility] for vital signs -we will look at getting you home BP cuff / have it sent to your house -increase torsemide to 40 mg daily -increase potassium to 20 mEq TWICE daily MWF and other days once daily -check labs after about a week -will refer you to Dr Cutler for AV fistula evaluation -eat a low sodium diet (less than 2000 mg or 1/2 tsp) daily -stay on 50 oz fluid limit >> about 3 of the hospital cups -eat a low sodium diet (less than 2000 mg or 1/2 tsp) daily -avoid medicines like aleve, advil, ibuprofen, aspirin more than 81 mg daily and other NSAIDS whichare not good for kidney patients. Take only tylenol (acetaminophen) up to 2000 mg daily as needed for pain or as directed by your primary care provider. documented in this encounter Progress Notes * Jennifer Agustin MD - 11/20/2023 2:39 PM EDT NEPHROLOGY CLINIC NOTE Nephrology, [address] [address] 11/20/2023, 2:39 PM Patient Name: Lg Cooley BACKGROUND: 73 year old male presents for hospital discharge visit today for stage III nonoliguric acute on chronic kidney injury CKD 3B from ischemic ATN; admitted to [facility] 10/20-01/06. PMH includes ischemic left MCA stroke 01/2018 [place] [facility] [place] for long time after amb w/ cane; DM since 1999 approx with triopathy, HTN dx'd after this; CAD s/p stent, PAD, MINERVA on BiPAP, post stroke urinary retention follows w/ urology; also with chronic atrial fibrillation on AC, tachy-geronimo syndrome status post pacemaker placement, peripheral vascular disease, morbid obesity status post Rouxen Y in 2007 C, esophageal strictures, cervical and lumbar spine degenerative [...] of renal disease. No stone hx. Frequent [facility] admissions: -Admitted [facility] 05/05-05/15/19 w/ LLE cellulitis after a fall. Cellulitis treated with daptomycin and Zosyn, later Augmentin. Noted on vascular studies to have venous insufficiency and possible 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 stenosis for outpatient follow- up. Followed initially with wound clinic but now L foot sore healed. Admission creatinine 2.1, discharge creatinine 1.5. He was discharged [facility]. -pacemaker change February 01, 2023 -October 02, [...] 13 presentation. First creat on 06/[address] [place] [address] d/c. Was d/c to [facility] for rehab, home about 10 days now. Takes minimal tylenol >2-3 X since hosp d/c. Active in his grandkids' lives. Helps get hsi brother to/from appts. Active in his high school class. At March 04, 2023 visit Weighs self daily >> 234 #; slowly upcreeping. TODAY 11/20/2023: Admitted to [facility] October 20 to for acute on chronicanemia with presenting hemoglobin 6.8. He had 2 units of packed red cells with stable hemoglobin thereafter; GI evaluated the patient did not feel endoscopy was indicated; unremarkable colonoscopy 2021 and EGD October [...] mg torsemide Monday with 20 mEq potassium on those days video capsule endoscopy plannedat discharge as well. has HHN through [facility] > coming M/F and checking BP. Daughter Roslyn has permission toaccess Dilip Has est w/ hematology and hgb 8.5 today; getting procrit through them. Following 1.5L FR -cup of coffee in AM, cup of green tea, in day drinks watered down juice Cont w/ wound clinic weekly for L heel wound and R calf/ bottom R foot. REVIEW OF SYSTEMS: No F/C; wt has been steady; energy level still very low and more tired than he was at d/c and appetite acceptable No palpitations, angina; can't really comment on orthopnea since easier to slepe in chair; recentlyLE edema controlled for him No cough, wheeze; stable chronic exertional dyspnea [...] mouth in the morning. 180 Tablet 1 Doxycycline Hyclate 100 MG Oral Tablet Delayed Release Take 1 Tablet by mouth in the morning and 1 Tablet before bedtime. (Patient not taking: Reported on 11/20/2023) Potassium Chloride Candi ER 20 MEQ Oral Tablet Extended Release Take one tablet by mouth TWICE dailyMon, Mon, Mon and one tablet ONCE daily other days of week 120 Tablet 1 No current facility-administered medications for [...] NAD, oriented x 3, ambulatory w/ cane Normocephalic, atraumatic, eomi nonicteric sclerae MMM RRR w/o m/g/r; no edema CTAB w/ reasonable air mvt NT abd, [...] = values in this interval not displayed. Latest Ref Rng 07/03/2023 07/07/2023 07/18/2023 07/26/2023 07/31/2023 08/16/2023 08/23/2023 NEPH-FLOW eGFR >=60 ML/MIN/1.73M2 27 (L) 26 (L) 32 (L) 16 (L) (E) 16 ! (E) 20 (L) eGFR >60 K 3.5 - 5.1 MMOL/L 5.0 3.8 3.7 2.8 ! (E) 3.1 ! (E) 3.2 (L) Hb 14.0 - 16.8 g/dL 9.9 (L) 9.4 (L) 11.3 (L) 10.8 ! (E) 10.3 ! (E) 8.3 ! (E) 8.5 (L) Latest Ref Rng 08/28/2023 09/04/2023 09/26/2023 10/02/2023 10/20/2023 NEPH-FLOW eGFR >=60 ML/MIN/1.73M2 19 ! (E) 19 (L) (E) 15 (L) 15 (L) 14 ! (E) eGFR 19 ! (E) eGFR >60 K 3.5 - 5.1 MMOL/L 3.3 ! (E) 4.7 (E) 3.8 4.5 4.4 (E) K 3.3 ! (E) Hb 14.0 - 16.8 g/dL 8.2 (L) 6.4 ! (E) Recent Labs Units 11/27/23 1012 11/20/23 1339 [...] URINE - [facility] /HPF 3-5* 0-2 3-5* November 13, 2023 outside labs Sodium 138, potassium 3.9, chloride 116, bicarb 18, BUN 62, creatinine 4; estimated GFR 15 with albumin of 2.6 % 15 Phosphorus 3.9 ASSESSMENT AND PLAN: JORGE (acute kidney injury) (HCC) (Primary) - BASIC METABOLIC PANEL; Future; Expected date: 11/21/2023 Stage 4 chronic kidney disease (HCC) - BASIC METABOLIC PANEL; Future; Expected date: 11/21/2023 - VASCULAR SURGERY REFERRAL OP Persistent proteinuria Hypertension goal BP (blood pressure) < 130/80 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) Metabolic acidosis Other hypervolemia - BASIC METABOLIC PANEL; Future; Expected date: 11/21/2023 Other orders - Sodium Bicarbonate 650 MG Oral Tablet; Take 2 Tablets by mouth in the morning and 2 Tablets before bedtime. - Torsemide 20 MG Oral Tablet (Demadex); Take 2 Tablets by mouth in the morning. Follow Up: Return in about 2 weeks (around 12/04/2023) for clinic visit w/ . | For: clinic visit w/ | Check-out note: Keep 11/29 Candelario appt w/ Stage I nonoliguric acute kidney injury on extremely advanced CKD in the setting of 260 mg albuminuria and with significant metabolic acidosis. Evaluate for modifiable risk factors and prepare for ESRD -sodium bicarbonate as below -schedulers surgery referral for AVF creation -options referral placed already Hypervolemic but blood pressure controlled -torsemide changes as well as potassium changes as below with follow-up labs -fluid and sodium maximum intake discussed Anemia as per Hematology; on Retacrit Reading Hospital discharge summary, Nephrology consultation, last Nephrology progress note reviewed Patient Instructions -start sodium bicarbonate 1300 mg twice daily -we will reach out to HHN for vital signs -we will look at getting you home BP cuff / have it sent to your house -increase torsemide to 40 mg daily -increase potassium to 20 mEq TWICE daily MWF and other days once daily -check labs after about a week -will refer you to Dr Cutler for AV fistula evaluation -eat a low sodium diet (less than 2000 mg or 1/2 tsp) daily -stay on 50 oz fluid limit >> about 3 of the hospital cups -eat a low sodium diet (less than 2000 mg or 1/2 tsp) daily -avoid medicines like aleve, advil, ibuprofen, aspirin more than 81 mg daily and other NSAIDS whichare not good for kidney patients. Take only tylenol (acetaminophen) up to 2000 mg daily as needed for pain or as directed by your primary care provider. I spent a total of 40-54 minutes (exact time 40 mins) on the date of service in preparation, delivery, and documentation of the care provided to Lg Cooley excluding any time spent in the performance of separately billed services or time spent by another provider/QHP. Jennifer Agustin MD Nephrology, [address] [place] [address] CC: REF: SELF [address] ADDRESS AVAILABLE PCP: SILVIA ARMAS [address] [place] [address] [place] [address] [phone] This chart was completed in part utilizing [employer] Direct Speech Voice Recognition Software. Randomword insertions, pronoun errors, and incomplete sentences are an occasional consequence of this system due to software limitations, and ambient noise. Any questions or concerns about the content, text, or information contained within the body of this dictation should be directly addressed to the provider for clarification. documented in this encounter Nursing Notes * Denae Drew LPN - 11/20/2023 2:24 PM EDT Chief Complaint Patient presents with Hospital Follow-Up Chronic Kidney Disease (CKD) Pt d/c from [facility] 10/24/23. Labs done 11/13/23 documented in this encounter Plan of Treatment Upcoming Encounters Date Type Department Care Team (Late st Contact Info) Description 12/04/2023 9:40 AM EDT Laboratory Laboratory [facility] [place] [address] [place] [phone] [place], Lab [facility] [address] [facility] [place] [address] 12/04/2023 10:00 AM EDT Office Visit Hematology/Oncology [facility] [place]ley [place] [address] [place] [phone] Monse Coates MD [address] [place] [address] [place] [phone] 12/04/2023 10:30 AM EDT Immunization/Injection Hematology/Oncology Treatment, [place] [address] [facility] [place] [phone] Kayley, Chair [address] [place] [address] 12/05/2023 6:30 AM EDT Anticoagulation [facility], Ilya Lafleur [address] [place] [address] [place] [address] Ccps, [address] [place] [address] 12/21/2023 2:00 PM EST Imaging Vascular Lab, [facility] 2nd [facility] [address] [facility] [place] [address] 12/27/2023 1:10 PM EST Office Visit Vascular Surgery, [facility] [address] [facility] [place] [address] Kaiden Woodall MD [address] [place] [address] 01/19/2024 9:00 AM EST Office Visit Gastroenterology [address] [place] [address] Moon Avila CRNP [address] [facility] [place] [address] 02/20/2024 12:30 PM EST Nurse Only Ancillary [address] [place] [address] [place], Nurse Annual [address] [place] [address] 03/08/2024 2:30 PM EST Office Visit Family Medicine [address] [place] [phone] Silvia Armas [address] [place] [address] Scheduled Procedures Name Priority Associated Diagnoses Date/Ti me COLONOSCOPY FLEXIBLE PROXIMA L DIAGNOSTIC Recall Screening for colon cancer Scheduled Referrals Name Type Priority Associated Diagnoses Orde r Schedule VASCULAR SURGERY REFERRAL OP Referral Within 10 days (routine) Stage 4 chronic kidney disease (HCC) Ordered: 11/20/2023 Health Maintenance Due Date Last Done Comments [...] this encounter Medical Devices Implanted Type Area T Rail Turner Device Identifier Shelf Expiration Date Model / Serial / Lot Shaft Fibula 6cm [id number] - [id number] [place] [facility] [place] - Human N/A: Spine Cervical MUSCULOSKELETAL TRANSPLANT FND 04/20/2010 [id number] / [id number] 0P / Stent Eso Gw 22x70 11630-182 - [id number] Implanted:Qty: 1 on 01/21/2008 [place] [facility] [place] N/A: Esophagus [employer] 04/12/2009 [id number] / / [id number] Depuy Uniplate 32 Implanted:Qty: 1 [place] 09/05/[place] [facility] [place] N/A: Spine Cervical TAMMY & TAMMY DEPUY 1897--[id number] / / Depuy Uniplate Screw 14mm Implanted:Qty: 2 on 09/05/2008 [place] [facility] [place] N/A: Spine Cervical TAMMY [employer] TAMMY DEPUY 1897-017 / / Depuy Lordotic Bengal Cage Implanted:Qty: 1 on 05/07/2010 [place] [facility] [place] N/A: Neck 1773-06-146 / [id number] / Plate Zach 3 Level Ti 54mm - [id number] Implanted:Qty: 1 on 05/07/2010 [place] [facility] [place] N/A: Neck JNJ : DEPUY SPINE [id number] / / Screw Zach Const St Ti 14mm - [id number] Implanted:Qty: 4 on 05/07/2010 [place] [facility] [place] N/A: Neck JNJ : DEPUY SPINE [id number] / / Screw 3.5x14 Mntr Fa [id number] - [id number] Implanted:Qty: 8 [place] 05/07/2010 [place] [facility] [place]A: Spine Cervical JNJ : [employer] [id number] / / Jarrell [id number] - [id number] Implanted:Qty: 1 on 05/07/2010 [place] [facility] [place]A: Spine Cervical JNJ : ETH[employer]ON [employer] [id number] / / Screw Inner Mntr [id number] - [id number] Implanted:Qty: 8 on 05/07/2010 [place] [facility] [place] N/A: Spine Cervical JNJ : ETHICON [employer]ATIONS [id number] / / Envista Intraocular Lens Implanted:Qty: 1 on 03/10/2022 by Liang Marshall MD at [facility] Right: Eye BAUSCH [employer] LOMB 08/13/2023 [id number] / [id number] / [id number] Envista Intraocular Lens Implanted:Qty: 1 on 03/24/2022 by Liang Marshall MD at OR [facility] Left: Eye BAUSCH & LOMB 07/13/2024 [id number] / [id number] / [id number] documented as of this encounter Results * (ABNORMAL) BASIC METABOLIC PANEL (11/20/2023 3:26 PM EDT) BUN 58(H) 6 - 20 mg/dL 11/20/2023 3:49 PM EDT [facility] CREATININE 3.8(H) 0.6 - 1.2 mg/dL 11/20/2023 3:49 PM EDT [facility] 56 EGFR 16(L) >=60 mL/min 11/20/2023 3:49 PM EDT [facility] 56- Comment:eGFR is calculated b ased on the CKD-EPI 2020 equation. SODIUM 137 135 - 146 mmol/L 11/20/2023 3:49 PM EDT [facility] 56- POTASSIUM 4.2 3.5 - 5.1 mmol/L 11/20/2023 3:49 PM EDT [facility] 56- CHLORIDE 107 98 - 107 mmol/L 11/20/2023 3:49 PM EDT [facility] 56- CO2 19(L) 22 - 32 mmol/L 11/20/2023 3:49 PM EDT [facility] 56- ANION GAP 11 7 - 15 mmol/L 11/20/2023 3:49 PM EDT [facility] 56- GLUCOSE 124(H) 70 - 120 mg/dL 11/20/2023 3:49 PM EDT [facility] 56- CALCIUM 8.1(L) 8.4 - 10.2 mg/dL 11/20/2023 3:49 PM EDT [facility]-02 Blood Venous blood specimen / Unknown Venipuncture / Unknown 11/20/2023 3:26 PM EDT 11/20/2023 3:26 PM EDT Jennifer Agustin MD LAB BLOOD ORDERAB LES [facility] [address] [place], [place] [id number] documented in this encounter Visit Diagnoses Diagnosis JORGE (acute kidney injury) (HCC)- Primary Acute kidney failure, unspecified Stage 4 chronic kidney disease (HCC) Persistent proteinuria Proteinuria Hypertension goal BP (blood pressure) < 130/80 Unspecified essential hypertension 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) Metabolic acidosis Acidosis Other hypervolemia documented in this encounter Advance Directives Documents on File Type Date Recorded 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 No Care Teams Reinspector Relationship Specialty Start Date End Date Silvia Armas DO [address] [place] [address] [place] [address] PCP - General Internal Medicine 11/09/16 documented as of this encounter"
--- OUTSIDE RECORDS SUMMARY | 2024-01-29 17:51 | External Medical Summary | Summary of Care ---
Author Name Unknown Organization [facility] Address [address] [place] [address] Phone [phone] Care Team Providers Care Validation Intern Name Role Phone Jocelyne Desai Primary Care Provider [phone] Reason for Visit * Reason Onset Date Comments TRIAGE 11/21/2023 Encounter Details Date Type Department Care Team (Late st Contact Info) Description 11/21/2023 Telephone Vascular Surgery, [facility] 132 [facility] [place] [address] Kaiden Woodall MD [address] [place] [address] TRIAGE Allergies No known active [...] the morning. 180 Tablet 1 4 11/30/19 Discontinued Potassium Chloride Candi ER 20 MEQ [...] connectivity [facility] for wound care [phone] Televideo if needed. Problem Noted Date Diagnosed [...] with podiatry,. Letter in chart from [facility] podiatry they were unable [...] ICD-10 update of inactive term PLATT RESEARCH OTHER*[id number] 02/20/2007 ADVANCE DIRECTIVE INFORMATION 01/19/2005 Overview: Yes, [...] 11/17/19 23 LUMBAGO 12/24/2002 05/09/2007 LOC PRIM [id number] 12/24/200208/13 DEGENERATIVE SKIN DISORD 12/24/2002 VERTEBRAL FX [...] originally b/c pt unable to travel to [facility] or [facility] for vascular surgical procedures Pls cancel [facility] vascular procedures and schedule w/ Dr Cutler, [facility] Vascular * Telephone Encounter - Briana Steward LPN - 11/22/2023 11:11 AM EDT Pt is scheduled on 12/21/23 in ' for testing. Briana Steward LPN 11/22/2023 11:11 [...] Description 12/04/2023 9:40 AM EDT Laboratory Laboratory [facility] [address] [place] [phone] Presley Zaldivar [address] [place] [address] 12/04/2023 10:00 AM EDT Office Visit Hematology/Oncology [facility] [address] [place] [phone] Monse Coates MD [address] [place] [phone] 12/04/2023 10:30 AM EDT Immunization/Injection Hematology/Oncology Treatment, [place] [address] [place] [phone] Park, Chair 7 Hem Onc Scenery [address] [place] [address] 12/05/2023 6:30 AM EDT Anticoagulation Centralized Clinical Pharmacy Services, Ilya Lafleur [address] [place] [address] [place] [address] [facility], [address] [place] [address] 12/21/2023 2:00 PM EST Imaging Vascular Lab, [facility] 2nd [facility] [address] [place] [address] 12/27/2023 1:10 PM EST Office Visit Vascular Surgery, [facility] [address] [place] [address] Kaiden Woodall MD 100 [facility] [place] [address] 01/19/2024 9:00 AM EST Office Visit Gastroenterology [address] [place] [address] Moon Avila CRNP [address] [place] [address] 02/20/2024 12:30 PM EST Nurse Only Ancillary [address] [place] [address] [place], Nurse [address] [place] [address] 03/08/2024 2:30 PM EST Office Visit Family Medicine [address] [place] [phone] [place] [address] 04/16/2024 3:00 PM EST Office Visit Nephrology [address] [place] [address] Jennifer Agustin MD [address] [place] [address] Scheduled Orders Name Type Priority Associated Diagnoses [...] 08/23/2023, 05/2022, 11/09/2022, Additional history exists GFR 05/27/2024 11/27/2023, 0 08/2023, 11/13/2023, Additional history exists Depression Screening [...] this encounter Medical Devices Implanted Type Area Strategy Lead Device Identifier Shelf Expiration Date Model / Serial / Lot Shaft Fibula 6cm [id number] - [id number] Implanted:Qty: 1 on 09/05/2008 at [place] [facility] Tissue - Human N/A: Spine Cervical MUSCULOSKELETAL TRANSPLANT FND 04/20/2010 [id number] / [id number] 0P / Stent Eso Gw 22x70 14889-106 - [id number] Implanted:Qty: 1 on 01/21/2008 at OR [facility] N/A: Esophagus [employer] 04/12/2009 32735-497 / / [id number] Depuy Uniplate 32 Implanted:Qty: 1 on 09/05/2008 at [place] [facility] N/A: Spine Cervical TAMMY [employer] TAMMY DEPUY 1897-02-302 / / Depuy Uniplate Screw 14mm Implanted:Qty: 2 on 09/05/2008 at [place] [facility] N/A: Spine Cervical TAMMY [employer] TAMMY DEPUY 1897--017 / / Depuy Lordotic Bengal Cage Implanted:Qty: 1 on 05/07/2010 at [place] [facility] N/A: Neck 1773-06-146 / 1773-06-146 / Plate Zach 3 Level Ti 54mm - [id number] Implanted:Qty: 1 on 05/07/2010 at OR [facility] N/A: Neck JNJ : DEPUY SPINE [id number] / / Screw Zach Const St Ti 14mm - [id number] Implanted:Qty: 4 on 05/07/2010 at OR [facility] N/A: Neck JNJ : DEPUY SPINE [id number] 14 / / Screw 3.5x14 Mntr Fa [id number] - [id number] Implanted:Qty: 8 on 05/07/2010 at [place] [facility] N/A: Spine Cervical JNJ : ETH[employer] [id number] / / Jarrell [id number] - [id number] Implanted:Qty: 1 on 05/07/2010 at [place] [facility] N/A: Spine Cervical JNJ : ETH[employer]ON [employer] [id number] / / Screw Inner Mntr [id number] - [id number] Implanted:Qty: 8 on 05/07/2010 at [place] [facility] N/A: Spine Cervical JNJ : ETH[employer]ON [employer] [id number] / / Envista Intraocular Lens Implanted:Qty: 1 on 03/10/2022 [facility] Right: Eye BAUSCH & LOMB 08/13/2023 [id number] / [id number] / [id number] Envista Intraocular Lens Implanted:Qty: 1 on 03/24/2022 by Liang Marshall [facility] at [facility] Left: Eye BAUSCH & LOMB 07/13/2024 [id number] / [id number] / [id number] documented as of this encounter Visit Diagnoses Diagnosis ESRD (end stage renal disease) (HCC)- Primary End stage renal disease documented in this encounter Advance Directives Documents on File Type Date Recorded 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 No Care Teams Validation Intern Relationship Specialty Start Date End Date Jocelyne Desai DO [address] [place] [address] [place] [address] PCP - General Internal Medicine 11/09/16 documented as of this encounter
--- OUTSIDE RECORDS SUMMARY | 2024-01-29 17:51 | External Medical Summary | Summary of Care ---
Author Name Unknown Organization [facility] Address [address] [facility] [place] [address] Phone [phone] Care Team Providers Care Cycle Specialist Name Role Phone Jocelyne Desai Primary Care Provider [phone] Reason for Visit * Reason Comments Follow Up 2 week follow up Encounter Details Date Type Department Care Team (Late st Contact Info) Description 11/20/2023 1:00 PM EDT Office Visit Hematology/Oncology [facility] [place] [facility] [phone] Monse Coates MD 400 [facility] [place] [phone] Anemia due to [...] Oral Tablet Chewable Take by mouth. Active Midodrine HCl 2.5 MG Oral Tablet (Proamatine) Take 1 Tablet by mouth in the morning and 1 Tablet at noon and 1 Tablet in the evening. 90 Tablet 2 07/25/2023 4 Discontinued Doxycycline Hyclate 100 MG Oral Tablet Delayed Release Take 1 Tablet by mouth in the morning and 1 Tablet before bedtime. 4 Discontinued Torsemide 20 MG Oral Tablet (Demadex) Take 1 Tablet by mouth in the morning. 100 Tablet 1 11/01/2023 4 Discontinued Potassium Chloride Candi ER 20 MEQ Oral Tablet Extended Release Take 1 Tablet by mouth in the morning. 100 Tablet 1 11/01/2023 4 Discontinued documented as of this encounter (statuses as of 12/04/2023) Active Problems Patient Care Coordination No te Formatting of this note migh t be different from the original. Good connectivity [facility] for wound care [phone] Televideo if needed. Problem Noted Date Diagnosed [...] podiatry,. Letter in chart from [facility] podiatry they were unable to [...] ICD-10 update of inactive term PLATT RESEARCH OTHER*[id number] 02/20/2007 ADVANCE DIRECTIVE INFORMATION 01/19/2005 Overview: Yes, [...] [place] office early next week will need [facility] provider recheck Multiple and open wound [...] 11/17/19 23 LUMBAGO 12/24/2002 05/09/2007 LOC PRIM [id number] 12/24/200208/13 DEGENERATIVE SKIN DISORD 12/24/2002 VERTEBRAL FX [...] mRNA, LNP-s, No Pre serve, 2-Dose Series ([employer]) 02/16/2021,04/09/2020,03/19/2020 COVID-19, MRNA-LNP, 23-24, P F, 30 MCG/0.3 mL, 12 YRS AND ABOVE, IM ([facility]) 11/16/2022 [...] Sign Reading Time Taken Comments Blood Pressure 147/91 11/20/2023 1:05 PM EDT Pulse 100 11/20/2023 1:05 PM EDT Temperature 36.3 C (97.4 F) 11/20/2023 1:05 PM ED T Respiratory Rate - - Oxygen Saturation 98% 11/20/2023 1:05 PM EDT Inhaled Oxygen Concentration - - Weight 96.6 kg (213 lb) 11/20/2023 1:05 PM EDT Height - - Body Mass Index 29.71 11/06/2023 1:54 PM EDT documented in this encounter Progress Notes * Monse Coates MD - 11/20/2023 1:15 PM EDT Subjective Lg Cooley is a 73 year [...] Mental Status: He is alert. ASSESSMENT/PLAN: 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) (Primary) - CBC PLAN OF CARE DISCUSSED WITH PATIENT ON 11/20/2023 : Stat CBC today Return from Lab to get the retacrit injection today RV in 1 week for labs and Retacrit (around 11/27/2023) See me back in 2 weeks with labs and possibly for Retacrit. Monse Coates MD documented in this encounter Nursing Notes * Estefania Henderson, JASPER - 11/20/2023 1:06 PM EDT Patient identifed by name and birthdate Do you have any concerns about pain management for today's visit? No Living Will or Advance Directive for Health Care as noted on the problem list. [facility] is a way you can talk to your provider on line through e-mail. Would you like to sign up? I can activate it for you? ALREADY ACTIVE Filed Vitals: 11/20/23 1305 BP: 147/91 Pulse: 100 Temp: 36.3 C (97.4 F) TempSrc: Tympanic SpO2: 98% Weight: 96.6 kg (213 lb) Patient was instructed to not get [...] Description 12/04/2023 9:40 AM EDT Laboratory Laboratory [facility] [address] [place] [phone] [facility] [address] [place] [address] 12/04/2023 10:00 AM EDT Office Visit Hematology/Oncology [facility] [place] [place] [phone] Monse Coates MD [address] [place] [address] [place] [address] 12/04/2023 10:30 AM EDT Immunization/Injection Hematology/Oncology Treatment, [place] [address] [facility] [place] [phone] [place], Chair 7 Hem Onc [facility] [address] [place] [address] 12/05/2023 6:30 AM EDT Anticoagulation Centralized Clinical Pharmacy Services, Ilya Lafleur [address] [place] [address] [place] [address] [place] [address] 12/21/2023 2:00 PM EST Imaging Vascular Lab, [facility] 2nd [facility] [address] [place] [address] 12/27/2023 1:10 PM EST Office Visit Vascular Surgery, [facility] 132 [facility] [place] [address] Kaiden Woodall MD [address] [facility] [place] [address] 01/19/2024 9:00 AM EST Office Visit Gastroenterology [address] [place] [address] Moon Avila CRNP [address] [place] [address] 02/20/2024 12:30 PM EST Nurse Only Ancillary [address] [place] [address] [place], Nurse Annual [address] [place] [address] 03/08/2024 2:30 PM EST Office Visit Family Medicine [address] [place] [phone] J[address]ne Des[address] [place] [address] 04/16/2024 3:00 PM EST Office Visit Nephrology [address] [place] [address] Jennifer Agustin MD 200 [facility] [place] [address] Scheduled Procedures Name Priority Associated Diagnoses Date/Ti [...] 11/09/2022, Additional history exists GFR 05/27/2024 11/27/2023, 08/2023, 11/13/2023, Additional history exists Depression Screening [...] this encounter Medical Devices Implanted Type Area Heater Engineer Helper Device Identifier Shelf Expiration Date Model / Serial / Lot Shaft Fibula 6cm [id number] - [id number] Implanted:Qty: 1 on 09/05/2008 at [place] [facility] Tissue - Human N/A: Spine Cervical MUSCULOSKELETAL TRANSPLANT FND 04/20/2010 [id number] / [id number] 0P / Stent Eso Gw 22x70 20805-979 - [id number] Implanted:Qty: 1 on 01/21/2008 at [place] [facility] N/A: Esophagus [employer]US INC 04/12/2009 85857-324 / / [id number] Depuy Uniplate 32 Implanted:Qty: 1 on 09/05/2008 [...] [facility] [place] N/A: Neck 1773-06-146 / 1773--146 / Plate Zach 3 Level Ti 54mm - [id number] Implanted:Qty: 1 on 05/07/2010 at [place] [facility] N/A: Neck JNJ : DEPUY SPINE [id number] 54 / / Screw Zach Const St Ti 14mm - [id number] Implanted:Qty: 4 on 05/07/2010 at [place] [facility] N/A: Neck JNJ : DEPUY SPINE [id number] 14 / / Screw 3.5x14 Mntr Fa [id number] - [id number] Implanted:Qty: 8 on 05/07/2010 at [place] [facility] N/A: Spine Cervical JNJ : ETHICON C[employer]ATIONS [id number] / / Jarrell [id number] - [id number] Implanted:Qty: 1 on 05/07/2010 at [place] [facility] N/A: Spine Cervical JNJ : ETH[employer]ON C[employer]ATIONS [id number] / / Screw Inner Mntr [id number] - [id number] Implanted:Qty: 8 on 05/07/2010 at [place] [facility] N/A: Spine Cervical JNJ : ETH[employer]ON CARDIOVATIONS [id number] / / Envista Intraocular Lens Implanted:Qty: 1 on 03/10/2022 by JoannaLiang valladares MD at [facility] Right: Eye BAUSCH & LOMB 08/13/2023 [id number] / [id number] / [id number] Envista Intraocular Lens Implanted:Qty: 1 on 03/24/2022 by Liang Marshall MD at [facility] Left: Eye BAUSCH & LOMB 07/13/2024 [id number] / [id number] / [id number] documented as of this encounter Procedures Procedure Name Priority Date/Time Associated Diagnosis Comments CBC STAT 11/20/2023 1:39 PM EDT 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) documented in this encounter Results * (ABNORMAL) CBC (11/20/2023 1:39 PM EDT) WBC 5.07 4.00 - 10.80 K/uL 11/20/2023 1:[address] EDT [address] RBC 2.99 4.50 - 5.25 M/uL 11/20/2023 1:48 PM EDT [address] HGB 8.5(L) 14.0 - 16.8 g/dL 11/20/2023 1:48 PM EDT [facility] 56 HCT 27.7(L) 40.0 - 48.4 % 11/20/2023 1:48 PM EDT [facility] 56 MCV 92.6 82.0 - 99.5 fL 11/20/2023 1:48 PM EDT [facility] 56 MCH 28.4 27.0 - 34.0 pg 11/20/2023 1:48 PM EDT [facility] 56 MCHC 30.7 32.0 - 36.0 g/dL 11/20/2023 1:48 PM EDT [facility] 56 RDW 18.8 11.5 - 15.5 % 11/20/2023 1:48 PM EDT [facility] 56 PLT 168 140 - 400 K/uL 11/20/2023 1:48 PM EDT [facility] 56 MPV 9.8 6.6 - 11.1 fL 11/20/2023 1:48 PM EDT [facility] 56- Blood Venous blood specimen / Unknown Venipuncture / Unknown 11/20/2023 1:39 PM EDT 11/20/2023 1:39 PM EDT Monse Coates MD LAB BLOOD ORDERABLES [facility] [address] [place] [address] documented in this encounter Visit Diagnoses Diagnosis 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)- Primary documented in this encounter Advance Directives Documents on File Type Date Recorded 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 No Care Teams Cycle Specialist Relationship Specialty Start Date End Date Jocelyne Desai DO [address] [place] [address] [place] [phone] PCP - General Internal Medicine 11/09/16 documented as of this encounter"
--- OUTSIDE RECORDS SUMMARY | 2024-01-29 17:52 | External Medical Summary | Summary of Care ---
Author Name Unknown Organization [facility] Address [address] [facility] [place] [address] Phone [phone] Care Team Providers Care Custom Protection Officer Name Role Phone DesaiElissaJocelynejohn Cunninghambritany ASHTON Primary Care Provider + [phone] Reason for Visit * Reason Comments Outpatient Testing Encounter Details Date Type Department Care Team (Late st Contact Info) Description 11/27/2023 10:00 AM EDT Laboratory Laboratory [facility] [place] [address] [place] [phone] [place], Lab Scene [address] [place] [address] 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 chronic kidney disease (HCC); 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 kidney disease (HCC); Vitamin D deficiency; 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); Iron deficiency anemia due to chronic blood loss; Encounter for long-term (current) use of medications Allergies No known active allergiesdocumented as of this encounter (statuses as of 11/27/2023) Medications Medication Sig Dispensed Refills Start Date [...] Tablet Chewable Take by mouth. Activ e Doxycycline Hyclate 100 MG Oral Tablet Delayed [...] in the morning. 180 Tablet 1 11/20/2023 Active Potassium Chloride Candi ER 20 MEQ Oral Tablet Extended ReleaseIndications: Kidney disease, chronic, stage IV (GFR 15-29 ml/min) ([facility]) Take one tablet by mouth TWICE daily Mon, Wed, Fri and one tablet ONCE daily other days of week 120 Tablet 1 11/23/2023 Active documented as of this encounter (statuses as of 11/27/2023) Active Problems Patient Care Coordination No te Formatting of this note migh t be different from the original. Good connectivity [facility] for wound care [phone] Televideo if needed. 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 SPINAL STENOSIS-LUMBAR 09/23/2002 Vitamin D deficiency Cervical spinal stenosis documented as of this encounter (statuses as of 11/27/2023) Resolved Problems Problem Noted Date Diagnosed Date [...] 11/17/19 23 LUMBAGO 12/24/2002 05/09/2007 LOC PRIM [id number] 12/24/200208/13 DEGENERATIVE SKIN DISORD 12/24/2002 VERTEBRAL FX [...] as of this encounter (statuses as of 11/27/2023) Immunizations Name Administration Dates Next Due COVID-19 mRNA, LNP-s, No Pre serve, 2-Dose Series (Moderna) 03/19/2020 COVID-19 mRNA, LNP-s, No Pre serve, 2-Dose Series (Pfizer) 02/16/2021,04/09/2020,03/19/2020 COVID-19, MRNA-LNP, 23-24, P F, 30 MCG/0.3 mL, 12 YRS AND ABOVE, IM ([facility]) 11/16/2022 Covid-19, Mrna, Lnp-s, [...] Department Care Team (Latest Contact Info) Description 11/27/2023 10:30 AM EDT Immunization/Injection Hematology/Oncolo gy Treatment, [place] [address] [facility] [place] [phone] [place], Chair [address] Hem [address] [place] [address] 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)*; Iron deficiency anemia due to chronic blood loss 11/28/2023 6:30 AM EDT Anticoagulation Centralized Clinical Pharmacy Services, Ilya Lafleur [address] [place] [address] [place] [address] [facility], [address] [place] [address] 11/30/2023 1:00 PM EDT Office Visit Nephrology [address] [place] [address] Jennifer Agustin MD [address] [place] [address] 12/04/2023 9:40 AM EDT Laboratory Laboratory [facility] Kayley [place] [address] [place] [phone] [place], Lab [address] [place] [address] 12/04/2023 10:00 AM EDT Office Visit Hematology/Oncolo gy [facility] Kayley [place] [address] [facility] [place] [phone] Monse Coates MD [address] [place] [address] [place] [address] 12/04/2023 10:30 AM EDT Immunization/Injection Hematology/Oncolo gy Treatment, [place] [address] [facility] [place] [address] Kayley, Chair 7 Hem Onc Scenery [address] [place] [address] 12/21/2023 2:00 PM EST Imaging Vascular Lab, [facility] 2nd [facility] [address] [place] [address] 12/27/2023 1:10 PM EST Office Visit Vascular Surgery, [facility] [place] [address] Kaiden Woodall MD [address] [place] [address] 01/19/2024 9:00 AM EST Office Visit Gastroenterology [address] [place] [address] Moon Avila CRNP [address] [place] [address] 02/20/2024 12:30 PM EST Nurse Only Ancillary [address] [place] [address] [place], Nurse [address] [place] [address] 03/08/2024 2:30 PM EST Office Visit Family Medicine [address] [place] [phone] [address] [place] [address] Pending Results Name Type Priority Associated Diagnoses Date /Time IRON SCREEN, INCLUDING TIBC Lab Routine 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 chronic kidney disease (HCC) 11/27/2023 10:12 AM EDT PTH Lab Routine 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 kidney disease (HCC) 11/27/2023 10:12 AM EDT 25-HYDROXY VITAMIN D Lab Routine 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 kidney disease (HCC) Vitamin D deficiency 11/27/2023 10:12 AM EDT URINALYSIS WITH MICROSCOPIC EXAM Lab Routine 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 kidney disease (HCC) 11/27/2023 10:12 AM EDT ALBUMIN / CREATININE RATIO, URINE Lab Routine 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 kidney disease (HCC) 11/27/2023 10:12 AM EDT FERRITIN Lab Routine 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) Iron deficiency anemia due to chronic blood loss 11/27/2023 10:12 AM EDT VITAMIN B12 Lab Routine 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) Iron deficiency anemia due to chronic blood loss Encounter for long-term (current) use of medications 11/27/2023 10:12 AM EDT FOLIC ACID Lab Routine 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) Iron deficiency anemia due to chronic blood loss Encounter for long-term (current) use of medications 11/27/2023 10:12 AM EDT COMPREHENSIVE METABOLIC PANEL Lab STAT 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) Iron deficiency anemia due to chronic blood loss 11/27/2023 10:12 AM EDT Scheduled Procedures Name Priority Associated [...] 10/0 05/2022, 11/09/2022, Additional history exists GFR 05/20/2024 11/20/2023, 10/16, 11/01/2023, Additional history exists Depression Screening 10/30/2024 10/31/2023 Albumin/Creatinine Ratio 10/31/2024 024, 07/18/2023, 11/16/2022, Additional history exists DTap/Tdap Vaccines (3 - [...] this encounter Medical Devices Implanted Type Area Electronics Department Manager Device Identifier Shelf Expiration Date Model / Serial / Lot Shaft Fibula 6cm [id number] - [id number] Implanted:Qty: 1 on 09/05/2008 at OR [facility] Tissue - Human N/A: Spine Cervical MUSCULOSKELETAL TRANSPLANT FND 04/20/2010 [id number] / [id number] / Stent Eso Gw 22x70 [id number] - [id number] Implanted:Qty: 1 on 01/21/2008 at OR [facility] [place] N/A: Esophagus [employer] 04/12/2009 [id number] / / [id number] Depuy Uniplate 32 Implanted:Qty: 1 on 09/05/2008 [...] Plate Zach 3 Level Ti 54mm - [id number] Implanted:Qty: 1 on 05/07/2010 at OR [facility] [place] N/A: Neck JNJ : DEPUY SPINE [id number] / / Screw Zach Const St Ti 14mm - [id number] Implanted:Qty: 4 on 05/07/2010 at OR [facility] [place] N/A: Neck JNJ : DEPUY SPINE [id number] / / Screw 3.5x14 Mntr Fa [id number] - [id number] Implanted:Qty: 8 on 05/07/2010 at OR [facility] [place] N/A: Spine Cervical JNJ : ETHICON CARDIOVATIONS [id number] / / Jarrell [id number] - [id number] Implanted:Qty: 1 on 05/07/2010 at OR [facility] [place] N/A: Spine Cervical JNJ : ETHICON CARDIOVATIONS [id number] / / Screw Inner Mntr [id number] - [id number] Implanted:Qty: 8 on 05/07/2010 at OR [facility] [place] N/A: Spine Cervical JNJ : ETHICON CARDIOVATIONS [id number] / / Envista Intraocular Lens Implanted:Qty: 1 on 03/10/2022 by Liang Marshall MD at OR [facility] Right: Eye BAUSCH & LOMB 08/13/2023 [id number] / [id number] / [id number] Envista Intraocular Lens Implanted:Qty: 1 on 03/24/2022 by Liang Marshall MD at OR [facility] Left: Eye BAUSCH & LOMB 07/13/2024 [id number] / [id number] / [id number] documented as of this encounter Procedures Procedure Name Priority Date/Time Associated Diagnosis Comments DIFFERENTIAL, AUTOMATED STAT 11/27/2023 10:12 AM EDT 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) Iron deficiency anemia due to chronic blood loss CBC STAT 11/27/2023 10:12 AM EDT 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) Iron deficiency anemia due to chronic blood loss CBC STAT 11/27/2023 10:12 AM EDT 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) Iron deficiency anemia due to chronic blood loss documented in this encounter Results * (ABNORMAL) DIFFERENTIAL, AUTOMATED (11/27/2023 10:12 AM EDT) WBC 4.72 4.00 - 10.80 K/uL 11/27/2023 10:22 AM EDT [facility] [place] [facility] Neutrophils % 64.4 40.0 - 75.0 % 11/27/2023 10:22 AM EDT [facility] [place] [facility] Lymphocytes % 20.8 18.0 - 42.0 % 11/27/2023 10:22 AM EDT [facility] [place] [facility]02 Monocytes % 10.4 1.0 - 11.0 % 11/27/2023 10:22 AM EDT [facility] [place] 56[facility]02 Eosinophils % 4.2 0.0 - 6.0 % 11/27/2023 10:22 AM EDT [facility] [place] 56-02 Basophils % 0.2 0.0 - 2.0 % 11/27/2023 10:22 AM EDT [facility] [place] 56-02 Absolute Neutrophils 3.04 1.80 - 7.70 K/uL 11/27/2023 10:22 AM EDT [facility] 56-02 Absolute Lymphocytes 0.98(L) 1.00 - 4.80 K/ul 11/27/2023 10:22 AM EDT [facility] [place] 56[facility]02 Absolute Monocytes 0.49 0.00 - 1.10 K/uL 11/27/2023 10:22 AM EDT [facility] [place] 56-02 Absolute Eosinophils 0.20 0.00 - 0.70 K/uL 11/27/2023 10:22 AM EDT [facility] [place] 56-02 Absolute Basophils 0.01 0.00 - 0.20 K/uL 11/27/2023 10:22 AM EDT [facility] 56-02 Blood Venous blood specimen / Unknown Venipuncture / Unknown 11/27/2023 10:12 AM EDT 11/27/2023 10:12 AM EDT Monse Coates MD LAB BLOOD ORDERABLES [facility] 56 [address] [place], [place] [address] * (ABNORMAL) CBC (11/27/2023 10:12 AM EDT) WBC 4.72 4.00 - 10.80 K/uL 11/27/2023 10:22 AM EDT [facility] 56 RBC 2.99 4.50 - 5.25 M/uL 11/27/2023 10:22 AM EDT [facility] 56 HGB 8.7(L) 14.0 - 16.8 g/dL 11/27/2023 10:22 AM EDT [facility] 56 HCT 28.1(L) 40.0 - 48.4 % 11/27/2023 10:22 AM EDT [facility] 56 MCV 94.0 82.0 - 99.5 fL 11/27/2023 10:22 AM EDT [facility] 56 MCH 29.1 27.0 - 34.0 pg 11/27/2023 10:22 AM EDT [facility] 56 MCHC 31.0 32.0 - 36.0 g/dL 11/27/2023 10:22 AM EDT [facility] 56 RDW 19.5 11.5 - 15.5 % 11/27/2023 10:22 AM EDT [facility] 56 PLT 212 140 - 400 K/uL 11/27/2023 10:22 AM EDT [facility] 56 MPV 9.6 6.6 - 11.1 fL 11/27/2023 10:22 AM EDT [facility] 56 Blood Venous blood specimen / Unknown Venipuncture / Unknown 11/27/2023 10:12 AM EDT 11/27/2023 10:12 AM EDT Monse Coates MD LAB BLOOD ORDERABLES [facility] [address] [place] [address] documented in this encounter Visit Diagnoses Diagnosis 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)- Primary Iron deficiency anemia due to chronic blood loss Iron deficiency anemia secondary to blood loss (chronic) 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 chronic kidney disease (HCC) 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 kidney disease (HCC) Vitamin D deficiency Unspecified vitamin D deficiency 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) Iron deficiency anemia due to chronic blood loss Iron deficiency anemia secondary to blood loss (chronic) Encounter for long-term (current) use of medications Encounter for long-term (current) use of other medications documented in this encounter Advance Directives Documents on File Type Date Recorded 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 No Care Teams Custom Protection Officer Relationship Specialty Start Date End Date Jocelyne Desai DO [address] [place] [address] [place] [phone] PCP - General Internal Medicine 11/09/16 documented as of this encounter
--- OUTSIDE RECORDS SUMMARY | 2024-01-29 17:52 | External Medical Summary | Summary of Care ---
Author Name Unknown Organization [facility] Address [address] [place] [address] Phone [phone] Care Team Providers Care Arc Welding Machine Operator Name Role Phone Jocelyen Desai Primary Care Provider [phone] Reason for Visit * Reason Onset Date Comments TRIAGE 11/21/2023 Encounter Details Date Type Department Care Team (Late st Contact Info) Description 11/21/2023 Telephone Vascular Surgery, [facility] [address] [facility] [place] [address] Kaiden Woodall MD [address] [place] [address] TRIAGE Allergies No known active [...] other days of week 120 Tablet 1 11/20/2023 4 Discontinue d(Refill) documented as of this encounter (statuses as of 11/30/2023) Active Problems Patient Care Coordination No te Formatting of this note migh t be different from the original. Good connectivity [facility] for wound care [phone] Televideo if needed. 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 (Household - for [...] originally b/c pt unable to travel to [facility] or [facility] for vascular surgical procedures Pls cancel G vascular procedures and schedule w/ Dr Cutler Ulysses [facility] Vascular * Telephone Encounter - Briana Steward LPN - 11/22/2023 11:11 AM EDT Pt is scheduled on 12/21/23 in 's for testing. Briana Steward LPN 11/22/2023 11:11 [...] State [place] [address] [place] [phone] Presley Zaldivar [address] [place] [address] 12/04/2023 10:00 AM EDT Office Visit Hematology/Oncology [place] [address] [place] [phone] Monse Coates MD [address] [place] [address] 12/04/2023 10:30 AM EDT Immunization/Injection Hematology/Oncology Treatment, [place] [address] [place] [phone] [place], Chair 7 Hem Onc [address]ery [address] [place] [address] 12/05/2023 6:30 AM EDT Anticoagulation Centralized Clinical Pharmacy Services, Ilya Lafleur [address] [place] [address] [place] [address] [place] [address] 12/21/2023 2:00 PM EST Imaging Vascular Lab, [facility]nd [facility] [address] [place] [address] 12/27/2023 1:10 PM EST Office Visit Vascular Surgery, [facility] [address] [place] [address] Kaiden Woodall MD [address] [facility] [place] [address] 01/19/2024 9:00 AM EST Office Visit Gastroenterology [address] [place] [address] Moon Avila CRNP 132 [facility] [place] [address] 02/20/2024 12:30 PM EST Nurse Only Ancillary [address] [place] [address] [place], Nurse [address] [place] [address] 03/08/2024 2:30 PM EST Office Visit Family Medicine [address] [place] [phone] [address] [place] [address] Scheduled Orders Name Type Priority Associated Diagnoses [...] , 12/28/2021, Additional history exists COVID-19 Vaccine () 10/15/2023 11/16/2022, 11/16/2022, 11/16/2021, Additional history exists Diabetic [...] this encounter Medical Devices Implanted Type Area Pbx Teacher Device Identifier Shelf Expiration Date Model / Serial / Lot Shaft Fibula 6cm [id number] - [id number] Implanted:Qty: 1 on 09/05/2008 at OR [facility] Tissue - Human N/A: Spine Cervical MUSCULOSKELETAL TRANSPLANT FND 04/20/2010 [id number] / [id number] 0P / Stent Eso Gw 22x70 [id number] - [id number] Implanted:Qty: 1 on 01/21/2008 at OR [facility] N/A: Esophagus [employer]US INC 04/12/2009 [id number] / / [id number] Depuy Uniplate 32 Implanted:Qty: 1 on 09/05/2008 [...] Plate Zach 3 Level Ti 54mm - [id number] Implanted:Qty: 1 on 05/07/2010 at OR [facility] N/A: Neck JNJ : DEPUY SPINE [id number] / / Screw Zach Const St Ti 14mm - [id number] Implanted:Qty: 4 on 05/07/2010 at OR [facility] N/A: Neck JNJ : DEPUY SPINE [id number] 14 / / Screw 3.5x14 Mntr Fa [id number] - [id number] Implanted:Qty: 8 on 05/07/2010 at OR [facility] N/A: Spine Cervical JNJ : ETHICON CARDIOVATIONS [id number] / / Jarrell [id number] - [id number] Implanted:Qty: 1 on 05/07/2010 at OR [facility] N/A: Spine Cervical JNJ : ETHICON CARDIOVATIONS [id number] / / Screw Inner Mntr [id number] - [id number] Implanted:Qty: 8 on 05/07/2010 at OR [facility] N/A: Spine Cervical JNJ : ETHICON CARDIOVATIONS [id number] / / Envista Intraocular Lens Implanted:Qty: 1 on 03/10/2022 by Liang Marshall MD at OR [facility] Right: Eye BAUSCH & LOMB 08/13/2023 [id number] / [id number] / [id number] Envista Intraocular Lens Implanted:Qty: 1 on 03/24/2022 by Liang Marshall MD at OR [facility] Left: Eye BAUSCH & LOMB 07/13/2024 [id number] / [id number] / [id number] documented as of this encounter Visit Diagnoses Diagnosis ESRD (end stage renal disease) (HCC)- Primary End stage renal disease documented in this encounter Advance Directives Documents on File Type Date Recorded 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 No Care Teams Arc Welding Machine Operator Relationship Specialty Start Date End Date Jocelyne Desai DO [address] [place] [address] [place] [address] PCP - General Internal Medicine 11/09/16 documented as of this encounter
--- OUTSIDE RECORDS SUMMARY | 2024-01-29 17:52 | External Medical Summary ---
Author Name Unknown Address Unknown Organization K09:[facility] 56-02 - [address] [place] [address] Laboratory Report Ordering Provider Test Date Status KUSHAL DOUGHERTY 11/27/2023 10:12:02 Final Observation Date Value Abnormality Reference (Units ) Status Color of Urine by Auto 11/27/2023 10:12:02 Yellow Light Yellow, Yellow, Dark Yellow Final Clarity, Urine 11/27/2023 10:12:02 Clear Clear Final Glucose [Mass/volume] in Urine by Automated test strip 11/27/2023 10:12:02 Negative Negative (mg/dL) Final Bilirubin.total [Presence] in Urine by Automated test strip 11/27/2023 10:12:02 Negative Negative Final Ketones [Mass/volume] in Urine by Automated test strip 11/27/2023 10:12:02 Negative Negative (mg/dL) Final Specific gravity, Urine 11/27/2023 10:12:02 1.010 1.003-1.030 Final Hemoglobin [Presence] in Urine by Automated test strip 11/27/2023 10:12:02 Negative Negative Final pH, Urine 11/27/2023 10:12:02 5.0 5.0-7.5 (Units) Final Protein [Mass/volume] in Urine by Automated test strip 11/27/2023 10:12:02 100 Abnormal Negative (mg/dL) Final Urobilinogen [Mass/volume] in Urine by Automated test strip 11/27/2023 10:12:02 0.2 0.2, 1.0 (mg/dL) Final Nitrite [Presence] in Urine by Automated test strip 11/27/2023 10:12:02 Negative Negative Final Leukocyte esterase [Presence] in Urine by Automated test strip 11/27/2023 10:12:02 Small Abnormal Negative Final RBC, Urine 11/27/2023 10:12:02 3-5 Abnormal 0-2 (/HPF) Final WBC, Urine 11/27/2023 10:12:02 20-29 Abnormal 0-2 (/HPF) Final Bacteria [#/area] in Urine sediment by Microscopy high power field 11/27/2023 10:12:02 0-25 0-25 (/HPF) Final Performing Location [facility] [address] [place] [address]
--- OUTSIDE RECORDS SUMMARY | 2024-01-29 17:52 | External Medical Summary | Summary of Care ---
Author Name Unknown Organization [facility] Address [address] [facility] [place] [address] Phone [phone] Care Team Providers Care Driver Lifter Of Sanitation Truck Name Role Phone Siliva Armas Primary Care Provider + [phone] Reason for Referral * Evaluate & Treat - Unlimited Visits (Within 10 days (routine)) - Authorized Specialty Diagnoses / Procedures Referred By Contact Referred To Contact Vascular Surgery / Cardiovascular Surgery Diagnoses Stage 4 chronic kidney disease (HCC) Jennifer Agustin MD [address] [address] Referral ID Status Reason Start Date Expiration Date Visits Requested Visits Authorized [id number] Authorized Specialty Services Required 11/20/2023 999 999 [...] Nephrology, Cely Zaldivar [address] [place] [address] Jennifer Agustin MD [address] [place] [address] JORGE (acute kidney injury) (HCC)*; Stage 4 [...] [facility] for wound care [phone] Televideo if needed. Problem Noted Date Diagnosed [...] up with podiatry,. 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 1 [...] ICD-10 update of inactive term PLATT RESEARCH OTHER*[id number] 02/20/2007 ADVANCE DIRECTIVE INFORMATION 01/19/2005 Overview: Yes, [...] 11/17/19 23 LUMBAGO 12/24/2002 05/09/2007 LOC PRIM [id number]-B-IDV 12/24/200208/13 DEGENERATIVE SKIN DISORD 12/24/2002 VERTEBRAL FX [...] MCG/0.3 mL, 12 YRS AND ABOVE, IM (Channelkit-Comirnaty) 11/16/2022 Covid-19, Mrna, Lnp-s, Pf, B ivalent, [...] twice daily -we will reach out to [facility] for vital signs -we will look at [...] 2:39 PM EDT NEPHROLOGY CLINIC NOTE Nephrology, [address] [address] 11/20/2023, 2:39 PM Patient Name: Lg Cooley BACKGROUND: 73 year old male presents for hospital discharge visit today for stage III nonoliguric acute on chronic kidney injury CKD 3B from ischemic ATN; admitted to [facility] 10/20-01/06. 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 No stone hx. Frequent [facility] admissions: -Admitted [facility] 05/05-05/15/19 w/ LLE cellulitis after a fall. Cellulitis treated with daptomycin and Zosyn, later Augmentin. Noted on vascular studies to have venous insufficiency and possible 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 stenosis for outpatient follow- up. Followed initially with wound clinic but now L foot sore healed. Admission creatinine 2.1, discharge creatinine 1.5. He was discharged [facility]. -pacemaker change February 01, 2023 -October [...] 13 presentation. First creat on 06/[address] [place] [address] d/c. Was d/c to [facility] for rehab, home about 10 days now. Takes minimal tylenol >2-3 X since hosp d/c. Active in his grandkids' lives. Helps get hsi brother to/from appts. Active in his high school class. At March 04, 2023 visit Weighs self daily >> 234 #; slowly upcreeping. TODAY 11/20/2023: Admitted to [facility] October 20 to for acute on chronicanemia [...] plannedat discharge as well. has HHN through [facility] > coming M/F and checking BP. Daughter [...] discussed Anemia as per Hematology; on Retacrit [facility] discharge summary, Nephrology consultation, last Nephrology progress [...] by another provider/QHP. Jennifer Agustin MD Nephrology, [address] [place] [address] CC: REF: SELF NO STREET ADDRESS AVAILABLE PCP: SILVIA ARMAS [address] [place] [address] [place] [address] [phone] This chart was completed in part utilizing Voxa Direct Speech Voice Recognition Software. Randomword insertions, [...] Chronic Kidney Disease (CKD) Pt d/c from [facility] 10/24/23. Labs done 11/13/23 documented in this encounter Plan of Treatment Upcoming Encounters Date Type Department Care Team (Late st Contact Info) Description 12/04/2023 9:40 AM EDT Laboratory Laboratory [facility] [place] [address] [place] [phone] Kayley, Lab [facility] [address] [facility] [place] [address] 12/04/2023 10:00 AM EDT Office Visit Hematology/Oncology [facility] Kayley [place] [address] [place] [address] Monse Coates MD [address] [place] [address] [place] [phone] 12/04/2023 10:30 AM EDT Immunization/Injection Hematology/Oncology Treatment, [place] [address] [facility] [place] [phone] Kayley, Chair 7 Hem Onc Scenery [address] [place] [address] 12/05/2023 6:30 AM EDT Anticoagulation Centralized Clinical Pharmacy Services, Ilya Lafleur [address] [place] [address] [place] [address] Ccps, [address] [place] [address] 12/21/2023 2:00 PM EST Imaging Vascular Lab, [facility] 2nd [facility] [address] [facility] [place] [address] 12/27/2023 1:10 PM EST Office Visit Vascular Surgery, [facility] [address] [facility] [place] [address] Kaiden Woodall MD [address] [place] [address] 01/19/2024 9:00 AM EST Office Visit Gastroenterology [address] [place] [address] Moon Avila CRNP [address] [facility] [place] [address] 02/20/2024 12:30 PM EST Nurse Only Ancillary [address] [place] [address] [place], Nurse Annual [address] [place] [address] 03/08/2024 2:30 PM EST Office Visit Family Medicine [address] [place] [phone] Silvia Armas [address] [place] [address] Scheduled Procedures Name Priority Associated Diagnoses Date/Ti [...] this encounter Medical Devices Implanted Type Area Platform Operations Director Device Identifier Shelf Expiration Date Model / Serial / Lot Shaft Fibula 6cm [id number] - [id number] Implanted:Qty: 1 on 09/05/2008 at [place] [facility] Tissue - Human N/A: Spine Cervical MUSCULOSKELETAL TRANSPLANT FND 04/20/2010 [id number] / [id number] 0P / Stent Eso Gw 22x70 [id number] - [id number] Implanted:Qty: 1 on 01/21/2008 at [place] [facility] N/A: Esophagus ALVEOLUS INC 04/12/2009 19172-921 / / [id number] Depuy Uniplate 32 Implanted:Qty: 1 on 09/05/2008 at [place] [facility] N/A: Spine Cervical TAMMY & TAMMY DEPUY 1897--302 / / Depuy Uniplate Screw 14mm Implanted:Qty: 2 on 09/05/2008 at [place] [facility] N/A: Spine Cervical TAMMY & TAMMY DEPUY 1897-017 / / Depuy Lordotic Bengal Cage Implanted:Qty: 1 on 05/07/2010 at [place] [facility] N/A: Neck 1773-06-146 / 1773-06-146 / Plate Zach 3 Level Ti 54mm - [id number] Implanted:Qty: 1 on 05/07/2010 at [place] [facility] N/A: Neck JNJ : DEPUY SPINE [id number] / / Screw Zach Const St Ti 14mm - [id number] Implanted:Qty: 4 on 05/07/2010 at [place] [facility] N/A: Neck JNJ : DEPUY SPINE [id number] / / Screw 3.5x14 Mntr Fa [id number] - [id number] Implanted:Qty: 8 on 05/07/2010 at [place] [facility] N/A: Spine Cervical JNJ : ETHICON CARDIOVATIONS [id number] / / Jarrell [id number] - [id number] Implanted:Qty: 1 on 05/07/2010 at [place] [facility] N/A: Spine Cervical JNJ : ETHICON CARDIOVATIONS [id number] / / Screw Inner Mntr [id number] - [id number] Implanted:Qty: 8 on 05/07/2010 at [place] [facility] N/A: Spine Cervical JNJ : ETHICON CARDIOVATIONS [id number] / / Envista Intraocular Lens Implanted:Qty: 1 on 03/10/2022 by Liang Marshall MD at OR [facility] Right: Eye BAUSCH & LOMB 08/13/2023 [id number] / [id number] / [id number] Envista Intraocular Lens Implanted:Qty: 1 on 03/24/2022 by Liang Marshall MD at OR [facility] Left: Eye BAUSCH & LOMB 07/13/2024 [id number] / [id number] / [id number] documented as of this encounter Results * (ABNORMAL) BASIC METABOLIC PANEL (11/20/2023 3:26 PM EDT) BUN 58(H) 6 - 20 mg/dL 11/20/2023 3:49 PM EDT [facility] 56 CREATININE 3.8(H) 0.6 - 1.2 mg/dL 11/20/2023 3:49 PM EDT [facility] 56 EGFR 16(L) >=60 mL/min 11/20/2023 3:49 PM EDT [facility] 56- Comment:eGFR is calculated b ased on the CKD-EPI 2020 equation. SODIUM 137 135 - 146 mmol/L 11/20/2023 3:49 PM EDT [facility] 56- POTASSIUM 4.2 3.5 - 5.1 mmol/L 11/20/2023 3:49 PM EDT [facility] 56- CHLORIDE 107 98 - 107 mmol/L 11/20/2023 3:49 PM EDT [facility] 56- CO2 19(L) 22 - 32 mmol/L 11/20/2023 3:49 PM EDT [facility] 56- ANION GAP 11 7 - 15 mmol/L 11/20/2023 3:49 PM EDT [facility] 56- GLUCOSE 124(H) 70 - 120 mg/dL 11/20/2023 3:49 PM EDT [facility] 56- CALCIUM 8.1(L) 8.4 - 10.2 mg/dL 11/20/2023 3:49 PM EDT [facility] 56-02 Blood Venous blood specimen / Unknown Venipuncture / Unknown 11/20/2023 3:26 PM EDT 11/20/2023 3:26 PM EDT Jennifer Agustin MD LAB BLOOD ORDERAB LES [facility] [address] [place], [place] [address] documented in this encounter Visit Diagnoses Diagnosis JORGE (acute kidney injury) (HCC)- Primary Acute kidney failure, unspecified Stage 4 chronic kidney disease (HCC) Persistent proteinuria Proteinuria Hypertension goal BP (blood pressure) < 130/80 Unspecified essential hypertension 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) Metabolic acidosis Acidosis Other hypervolemia documented in this encounter Advance Directives Documents on File Type Date Recorded Patient Analysis Internship Expl anation POLST 01/26/2021 [place] [facility] FOR LIFE-SUSTAINING TREATMENT [...] Power of Attor andrew? No Care Teams Driver Lifter Of Sanitation Truck Relationship Specialty Start Date End Date Silvia Armas DO [address] [place] [address] [place] [address] PCP - General Internal Medicine 11/09/16 documented as of this encounter"
--- OUTSIDE RECORDS SUMMARY | 2024-01-29 17:52 | External Medical Summary | Summary of Care ---
Author Name Unknown Organization [facility] Address [address] [facility] [place] [address] Phone [phone] Care Team Providers Care Director Marketing Analytics Name Role Phone Jocelyne Desai DO Primary Care Provider [phone] Encounter Details Date Type Department Care Team (Late st Contact Info) Description 11/30/2023 Population Health External Data Unspecified Department Allergies [...] 15-29 ml/min) ([facility]) Take one tablet by mouth TWICE daily Mon, Wed, Fri and one tablet ONCE daily other days of week 120 Tablet 1 11/23/2023 Active documented as of this encounter (statuses as of 11/30/2023) Active Problems Patient Care Coordination No te Formatting of this note migh t be different from the original. Good connectivity [facility] for wound care [phone] Televideo if needed. Problem Noted Date Diagnosed [...] ICD-10 update of inactive term PLATT RESEARCH OTHER*[id number] 02/20/2007 ADVANCE DIRECTIVE INFORMATION 01/19/2005 Overview: Yes, [...] 11/17/19 23 LUMBAGO 12/24/2002 05/09/2007 LOC PRIM ENIATMBB-J-TIO 12/24/200208/13 DEGENERATIVE SKIN DISORD 12/24/2002 VERTEBRAL FX [...] 11/30/2023 1:00 PM EDT Office Visit Nephrology [address] [place] [address] Jennifer Agustin MD [address] [place] [address] 12/04/2023 9:40 AM EDT Laboratory Laboratory [facility] [address] [place] [address] Presley Zaldivar Scenery [address] [place] [address] 12/04/2023 10:00 AM EDT Office Visit Hematology/Oncology Scenery [facility] [address] [place] [address] Monse Coates MD [address] [place] [address] [place] [phone] 12/04/2023 10:30 AM EDT Immunization/Injection Hematology/Oncology Treatment, [place] [address] [place] [phone] Kayley, Chair 7 Hem Onc Scenery [address] [place] [address] 12/05/2023 6:30 AM EDT Anticoagulation Centralized Clinical Pharmacy Services, Ilya Lafleur [address] [place] [address] [place] [address] Ccps, [address] [place] [address] 12/21/2023 2:00 PM EST Imaging Vascular Lab, [facility] 2nd [facility] [place] [address] 12/27/2023 1:10 PM EST Office Visit Vascular Surgery, [facility] [address] [facility] [place] [address] Kaiden Woodall MD [address] [place] [address] [place] [address] 01/19/2024 9:00 AM EST Office Visit Gastroenterology [address] [place] [address] Moon Avila CRNP 132 [facility] [place] [address] 02/20/2024 12:30 PM EST Nurse Only Ancillary [address] [place] [address] [place], Nurse Annual Wellness [address] [place] [address] [place] [address] 03/08/2024 2:30 PM EST Office Visit Family Medicine [address] [place] [phone] Jocelyne Desai, [address] [place] [address] Scheduled Procedures Name Priority Associated Diagnoses Date/Ti [...] this encounter Medical Devices Implanted Type Area Retail Associate Manager Bilingual Device Identifier Shelf Expiration Date Model / Serial / Lot Shaft Fibula 6cm [id number] - [id number] Implanted:Qty: 1 on 09/05/2008 at [place] [facility] Tissue - Human N/A: Spine Cervical MUSCULOSKELETAL TRANSPLANT FND 04/20/2010 [id number] / [id number] / Stent Eso Gw 22x70 20688-347 - [id number] Implanted:Qty: 1 on 01/21/2008 at OR [facility] N/A: Esophagus ALVEOLUS INC 04/12/2009 60255-188 / / [id number] Depuy Uniplate 32 Implanted:Qty: 1 on 09/05/2008 at OR [facility] N/A: Spine Cervical TAMMY & TAMMY DEPUY 1897-02-302 / / Depuy Uniplate Screw 14mm Implanted:Qty: 2 on 09/05/2008 at OR [facility] N/A: Spine Cervical TAMMY & TAMMY DEPUY 1897-06-017 / / Depuy Lordotic Bengal Cage Implanted:Qty: 1 on 05/07/2010 at OR [facility] N/A: Neck 1773-06-146 / 1773-06-146 / Plate Zach 3 Level Ti 54mm - [id number] Implanted:Qty: 1 on 05/07/2010 at OR [facility] N/A: Neck JNJ : DEPUY SPINE [id number] / / Screw Zach Const St Ti 14mm - [id number] Implanted:Qty: 4 on 05/07/2010 at OR [facility] N/A: Neck JNJ : DEPUY SPINE [id number] 14 / / Screw 3.5x14 Mntr Fa [id number] - [id number] Implanted:Qty: 8 on 05/07/2010 at OR [facility] N/A: Spine Cervical JNJ : ETHICON CARDIOVATIONS [id number] / / Jarrell [id number] - [id number] Implanted:Qty: 1 on 05/07/2010 at OR [facility] N/A: Spine Cervical JNJ : ETHICON CARDIOVATIONS [id number] / / Screw Inner Mntr [id number] - [id number] Implanted:Qty: 8 on 05/07/2010 at OR [facility] N/A: Spine Cervical JNJ : ETHICON CARDIOVATIONS [id number] / / Envista Intraocular Lens Implanted:Qty: 1 on 03/10/2022 by Liang Marshall MD at OR [facility] Right: Eye BAUSCH & LOMB 08/13/2023 [id number] / [id number] / [id number] Envista Intraocular Lens Implanted:Qty: 1 on 03/24/2022 by Liang Marshall MD at OR [facility] Left: Eye BAUSCH & LOMB 07/13/2024 [id number] / [id number] / [id number] documented as of this encounter Advance Directives Documents on File Type Date Recorded Patient Shop Girl Expl anation POLST 01/26/2021 [place] OR [facility] FOR LIFE-SUSTAINING TREATMENT [...] of Attor andrew? No Care Teams Director Marketing Analytics Relationship Specialty Start Date End Date Jocelyne Desai DO [address] [place] [address] [place] [address] PCP - General Internal Medicine 11/09/16 documented as of this encounter
--- OUTSIDE RECORDS SUMMARY | 2024-01-29 17:52 | External Medical Summary | Summary of Care ---
Author Name Unknown Organization [facility] Address [address] [facility] [address] Phone [phone] Care Team Providers Care Anhydrous Ammonia Production Supervisor Name Role Phone Desai Jocelyne Cunninghambritany ASHTON Primary Care Provider + [phone] Reason for Visit * Reason Comments Medication Administration Retacrit * Episode Based Medications (Routine) - Authorized Specialty Diagnoses / Procedures Referred By Contac t Referred To Contact Diagnoses 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) Iron deficiency anemia due to chronic blood loss Procedures [place] INJ RETACRIT NON-ESRD USE Monse Coates MD [address] [facility] [place] [address] Anc Hem/Onc [address] [address] Referral ID Status Reason Start Date Expiration Date V isits Requested Visits Authorized [id number] Authorized 11/13/2023 11/12/2024 999 999 Encounter Details Date Type Department Care Team (Late st Contact Info) Description 11/27/2023 10:30 AM EDT Immunization/I njection Hematology/Oncology Treatment, [address] [phone] Kayley, Chair [address] [address] Anemia due to stage 4 chronic kidney [...] stage IV (GFR 15-29 ml/min) ([facility]) Take one tablet by mouth TWICE daily Mon, Wed, Fri and one tablet ONCE daily other days of week 120 Tablet 1 11/23/2023 Active documented as of this encounter (statuses as of 11/27/2023) Active Problems Patient Care Coordination No te Formatting of this note migh t be different from the original. Good connectivity [facility] for wound care [phone] Televideo if needed. Problem Noted Date Diagnosed [...] ICD-10 update of inactive term PLATT RESEARCH OTHER*[id number] 02/20/2007 ADVANCE DIRECTIVE INFORMATION 01/19/2005 Overview: Yes, [...] 11/17/19 23 LUMBAGO 12/24/2002 05/09/2007 LOC PRIM WLWYHINH-C-WYE 12/24/200208/13 DEGENERATIVE SKIN DISORD 12/24/2002 VERTEBRAL FX [...] MCG/0.3 mL, 12 YRS AND ABOVE, IM (Doctolib-ComirnatLogan) 11/16/2022 Covid-19, Mrna, Lnp-s, Pf, B ivalent, [...] Care Team (Late st Contact Info) Description 11/28/2023 6:30 AM EDT Anticoagulation Centralized Clinical Pharmacy Services, Ilya Lafleur [address] [place] [address] [place] [address] [place] [address] 11/30/2023 1:00 PM EDT Office Visit Nephrology [address] [place] [address] Jennifer Agustin MD 200 [facility] [place], [place] [address] 12/04/2023 9:40 AM EDT Laboratory Laboratory [facility] [address] [place] [phone] Kayley, Lab Scenery [address] [place] [address] 12/04/2023 10:00 AM EDT Office Visit Hematology/Oncology [facility] [place] [address] [place] [phone] Monse Coates MD [address] [place], [place] [address] [phone] 12/04/2023 10:30 AM EDT Immunization/Injection Hematology/Oncology Treatment, [place] [address] [place] [phone] Kayley, Chair 7 Hem Onc Scene [address] [place] [address] 12/21/2023 2:00 PM EST Imaging [facility] Lab[facility] [address] [facility] [place] [address] 12/27/2023 1:10 PM EST Office Visit Vascular Surgery, [facility] [address] [facility] [place] [address] Kaiden Woodall MD [address] [place] [address] 01/19/2024 9:00 AM EST Office Visit Gastroenterology [address] [place] [address] Moon Avila CRNP 132 [facility] [place] [address] 02/20/2024 12:30 PM EST Nurse Only Ancillary [address] [place] [address] [place]oval[place], Nurse [address] [place] [address] 03/08/2024 2:30 PM EST Office Visit Family Medicine [address] [place] [phone] [place] [address] Scheduled Procedures Name Priority Associated Diagnoses Date/Ti [...] 08/23/2023, 1005/2022, 11/09/2022, Additional history exists GFR 05/20/2024 11/27/2023, 100 08/2023, 11/13/2023, Additional history exists [...] this encounter Medical Devices Implanted Type Area Ceramic Tile Setter Device Identifier Shelf Expiration Date Model / Serial / Lot Shaft Fibula 6cm [id number] - [id number] Implanted:Qty: 1 [place] 09/05/[place] [facility] [place] - Human N/A: Spine Cervical MUSCULOSKELETAL TRANSPLANT FND 04/20/2010 202043 / [id number] / Stent Eso Gw 22x70 72215-435 - [id number] Implanted:Qty: 1 on 01/21/2008 [place] [facility] N/A: Esophagus ALVEOLUS INC 04/12/2009 245[address]-827 / / [id number] Depuy Uniplate 32 Implanted:Qty: 1 on 09/05/2008 [place] [facility] [place]/A: Spine Cervical TAMMY & TAMMY DEPUY 1897-02-302 / / Depuy Uniplate Screw 14mm Implanted:Qty: 2 on 09/05/2008 [place] [facility] [place]/A: Spine Cervical TAMMY & TAMMY DEPUY 1897-06-017 / / Depuy Lordotic Bengal Cage Implanted:Qty: 1 on 05/07/2010 [place] [facility] N/A: Neck 1773-06-146 / 1773-06-146 / Plate Zach 3 Level Ti 54mm - [id number] Implanted:Qty: 1 on 05/07/2010 [place] [facility] [place]/A: Neck JNJ : DEPUY SPINE [id number] / / Screw Zach Const St Ti 14mm - [id number] Implanted:Qty: 4 on 05/07/2010 [place] [facility] [place]/A: Neck JNJ : DEPUY SPINE [id number] 14 / / Screw 3.5x14 Mntr Fa [id number] - [id number] Implanted:Qty: 8 on 05/07/2010 [place] [facility] [place]/A: Spine Cervical JNJ : ETHICON CARDIOVATIONS [id number] / / Jarrell [id number] - [id number] Implanted:Qty: 1 on 05/07/2010 [place] [facility] [place]/A: Spine Cervical JNJ : ETHICON CARDIOVATIONS [id number] / / Screw Inner Mntr [id number] - [id number] Implanted:Qty: 8 on 05/07/2010 [place] [facility] [place]/A: Spine Cervical JNJ : ETHICON CARDIOVATIONS [id number] / / Envista Intraocular Lens Implanted:Qty: 1 on 03/10/2022 by Liang Marshall MD at OR [facility] Right: Eye BAUSCH & LOMB 08/13/2023 [id number] / [id number] / [id number] Envista Intraocular Lens Implanted:Qty: 1 on 03/24/2022 by Liang Marshall MD at OR [facility] Left: Eye BAUSCH & LOMB 07/13/2024 [id number] / [id number] / [id number] documented as of this encounter Visit Diagnoses Diagnosis 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)- Primary Iron deficiency anemia due to chronic blood loss Iron deficiency anemia secondary to blood loss (chronic) documented in this encounter Administered Medications Inactive Administered Medications - up to 3 most recent administrations Medication Order MAR Action Action Date Dose Rate Site Epoetin Sam-epbx (Retacrit) 25152 UNIT/ML inj 10,000 Units 10,000 Units, Subcutaneous, ONCE, On Mon11/27/23 at 1130, For 1 dose Given 11/27/2023 10:32 AM EDT 10,000 Units Arm Right Upper documented in this encounter Advance Directives Documents on File Type Date Recorded Patient Director Business Systems Expl anation POLST 01/26/2021 [place] [facility] FOR LIFE-SUSTAINING TREATMENT * No [...] Power of Attor andrew? No Care Teams Anhydrous Ammonia Production Supervisor Relationship Specialty Start Date End Date Jocelyne Desai DO [address] [place] [address] [place] [address] PCP - General Internal Medicine 11/09/16 documented as of this encounter
--- OUTSIDE RECORDS SUMMARY | 2024-01-29 17:52 | External Medical Summary | Summary of Care ---
Author Name Unknown Organization [facility] Address [address] [facility] [place] [address] Phone [phone] Care Team Providers Care Intellectual Property Manager Name Role Phone Jocelyne Desai DO Primary Care Provider Reason for Visit * Reason Onset Date Comments Encounter Created in Error 08/28/2023 Encounter Details Date Type Department Care Team (Late st Contact Info) Description 08/28/2023 Telephone Family Medicine [address] [phone] Jocelyne Desai DO [address] [place] [address] [place] [address] Encounter Created in Error [...] Good connectivity [facility] for wound care [phone] Televideo if needed. Problem Noted Date Diagnosed [...] podiatry,. Letter in chart from [facility] podiatry they were unable to get [...] ICD-10 update of inactive term PLATT RESEARCH OTHER*[id number] 02/20/2007 ADVANCE DIRECTIVE INFORMATION 01/19/2005 Overview: Yes, [...] [facility] office early next week will need [facility] provider recheck Multiple and open wound of [...] 11/17/19 23 LUMBAGO 12/24/2002 05/09/2007 LOC PRIM [id number] 12/24/200208/13 DEGENERATIVE SKIN DISORD 12/24/2002 VERTEBRAL FX [...] Info) Description 11/28/2023 6:30 AM EDT Anticoagulation [facility] Clinical Pharmacy Services, [address] [place] [address] [place] [address] 11/30/2023 1:00 PM EDT Office Visit Nephrology [address] [place] [address] Jennifer Agustin MD [address] [place] [address] 12/04/2023 9:40 AM EDT Laboratory Laboratory State Gallo Henley [address] [place] [address] [phone] Presley Zaldivar [address] [place] [address] [place] [address] 12/04/2023 10:00 AM EDT Office Visit Hematology/Oncology State Gallo Henley [address] [place] [address] [phone] Monse Coates MD 400 [facility] [place] [address] 12/04/2023 10:30 AM EDT Immunization/Injection Hematology/Oncology Treatment, [place] [address] [facility] [address] [place] [address] Park, Chair 7 Hem Onc Scene 200 [place] [address] 12/21/2023 2:00 PM EST Imaging [facility] [address] [place] [address] 12/27/2023 1:10 PM EST Office Visit Vascular Surgery, [facility] [place] [address] Kaiden Woodall MD [address] [place], [place] [address] [address] 01/19/2024 9:00 AM EST Office Visit Gastroenterology [address] [place] [address] Moon Avila CRNP 132 [facility] [place] [address] 02/20/2024 12:30 PM EST Nurse Only Ancillary [address] [place] [address] [place], Nurse Annual [address] [place] [address] 03/08/2024 2:30 PM EST Office Visit Family Medicine [address] [place] [phone] Jocelyne Desai[address] [place] [address] Scheduled Procedures Name Priority Associated Diagnoses Date/Ti [...] this encounter Medical Devices Implanted Type Area Clinic Scheduler Device Identifier Shelf Expiration Date Model / Serial / Lot Shaft Fibula 6cm [id number] - [id number] [place]ed:Q[place] 1 [place] [facility] [place] Human N/A: Spine Cervical MUSCULOSKELETAL TRANSPLANT FND 04/20/2010 [id number] / [id number] / Stent Eso Gw 22x70 [id number] - [id number] Implanted:Qty: 1 on 01/21/2008 [place] [facility] [place]A: Esophagus ALVEOLUS INC 04/12/2009 04128-619 / / [id number] Depuy Uniplate 32 Implanted:Qty: 1 on 09/05/2008 [...] Plate Zach 3 Level Ti 54mm - [id number] Implanted:Qty: 1 on 05/07/2010 [place] [facility] [place]: Neck JNJ : DEPUY SPINE [id number] / / Screw Zach Const St Ti 14mm - [id number] Implanted:Qty: 4 on 05/07/2010 [place] [facility] [place]: Neck JNJ : DEPUY SPINE [id number] / / Screw 3.5x14 Mntr Fa [id number] - [id number] Implanted:Qty: 8 on 05/07/2010 [place] [facility] [place]: Spine Cervical JNJ : ETHICON CARDIOVATIONS [id number] / / Jarrell [id number] - [id number] Implanted:Qty: 1 on 05/07/2010 [place] [facility] [place]: Spine Cervical JNJ : ETHICON CARDIOVATIONS [id number] / / Screw Inner Mntr [id number] - [id number] Implanted:Qty: 8 on 05/07/2010 [place] [facility] [place]A: Spine Cervical JNJ : ETHICON CARDIOVATIONS [id number] / / Envista Intraocular Lens Implanted:Qty: 1 on 03/10/2022 by Liang Marshall MD at OR [facility] Right: Eye BAUSCH & LOMB 08/13/2023 [id number] / [id number] / [id number] Envista Intraocular Lens Implanted:Qty: 1 on 03/24/2022 by Liang Marshall MD at OR [facility] Left: Eye BAUSCH & LOMB 07/13/2024 [id number] / [id number] / [id number] documented as of this encounter Advance Directives Documents on File Type Date Recorded 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 No Care Teams Intellectual Property Manager Relationship Specialty Start Date End Date Jocelyne Desai DO [address] [place] [address] [place] [phone] PCP - General Internal Medicine 11/09/16 documented as of this encounter
--- OUTSIDE RECORDS SUMMARY | 2024-01-29 17:52 | External Medical Summary | Summary of Care ---
Author Name Unknown Organization [facility] Address [address] [facility] [place] [address] Phone [phone] Care Team Providers Care Table Hand Name Role Phone Jocelyne Desai DO Primary Care Provider [phone] Encounter Details Date Type Department Care Team (Late st Contact Info) Description 11/29/2023 Population Health External Data Unspecified Department Allergies No known active allergiesdocumented as of this encounter (statuses as of 11/29/2023) Medications Medication Sig Dispensed Refills Start Date [...] ml/min) ([facility]) Take one tablet by mouth TWICE daily Mon, Wed, Fri and one tablet ONCE daily other days of week 120 Tablet 1 11/23/2023 Active documented as of this encounter (statuses as of 11/29/2023) Active Problems Patient Care Coordination No te Formatting of this note migh t be different from the original. Good connectivity [facility] for wound care [phone] Televideo if needed. Problem Noted Date Diagnosed [...] podiatry,. Letter in chart from [facility] podiatry they were unable [...] ICD-10 update of inactive term PLATT RESEARCH OTHER*[id number] 02/20/2007 ADVANCE DIRECTIVE INFORMATION 01/19/2005 Overview: Yes, Patient instructed to provide copy of advance directive for provider to review and to be scanned into Electronic Medical Record No, Advance Directive brochure given to patient at prior appointment. SPINAL STENOSIS-LUMBAR 09/23/2002 Vitamin D deficiency Cervical spinal stenosis documented as of this encounter (statuses as of 11/29/2023) Resolved Problems Problem Noted Date Diagnosed Date Resolved Date Chronic kidney disease (CKD) , stage IV (severe) 09/27/2023 10/26/2023 Depression, unspecified 11/09/2021 03 Depression, unspecified 11/09/202105/2022 Cellulitis of right leg 07/13/202105/2022 Last Assessment & Plan: Suspect this could be early/localized. Will treat with 7 days antibiotic. If pt cannot be reassess by Dr. Braxton office early next week will need [facility] provider recheck Multiple and open [...] 11/17/19 23 LUMBAGO 12/24/2002 05/09/2007 LOC PRIM [id number] 12/24/200208/13 DEGENERATIVE SKIN DISORD 12/24/2002 VERTEBRAL FX [...] as of this encounter (statuses as of 11/29/2023) Immunizations Name Administration Dates Next Due COVID-19 [...] 11/30/2023 1:00 PM EDT Office Visit Nephrology [address] [place] [address] Jennifer Agustin MD [address] [place] [address] 12/04/2023 9:40 AM EDT Laboratory Laboratory State Gallo Henley [address] [place] [address] Presley Zaldivar Scenery [address] [place] [address] 12/04/2023 10:00 AM EDT Office Visit Hematology/Oncology Scenery [facility] [address] [place] [address] Monse Coates MD [address] [place] [address] [place] [phone] 12/04/2023 10:30 AM EDT Immunization/Injection Hematology/Oncology Treatment, [place] [address] [place] [phone] Kayley, Chair 7 Hem Onc Scenery [address] [place] [address] 12/05/2023 6:30 AM EDT Anticoagulation Centralized Clinical Pharmacy Services, Ilya Lafleur [address] [place] [address] [place] [address] Ccps, [address] [place] [address] 12/21/2023 2:00 PM EST Imaging Vascular Lab, [facility] 2nd [facility] [address] [facility] [place] [address] 12/27/2023 1:10 PM EST Office Visit Vascular Surgery, [facility] [address] [facility] [place] [address] Kaiden Woodall MD [address] [place] [address] [place] [address] 01/19/2024 9:00 AM EST Office Visit Gastroenterology [address] [place] [address] Moon vAila CRNP 132 [facility] [place] [address] 02/20/2024 12:30 PM EST Nurse Only Ancillary [address] [place] [address] [place], Nurse Annual Wellness [address] [place] [address] [place] [address] 03/08/2024 2:30 PM EST Office Visit Family Medicine [address] [place] [phone] Jocelyne Desai, [address] [place] [address] Scheduled Procedures Name Priority Associated Diagnoses Date/Ti [...] encounter Medical Devices Implanted Type Area Refrigeration Service Technician Device Identifier Shelf Expiration Date Model / Serial / Lot Shaft Fibula 6cm [id number] - [id number] Implanted:Qty: 1 on 09/05/2008 at [place] [facility] [place] Tissue - Human N/A: Spine Cervical MUSCULOSKELETAL TRANSPLANT FND 04/20/2010 [id number] / [id number] 0P / Stent Eso Gw 22x70 [id number] - [id number] Implanted:Qty: 1 on 01/21/2008 at [place] [facility] N/A: Esophagus ALVEOLUS INC 04/12/2009 66451-304 / / [id number] Depuy Uniplate 32 Implanted:Qty: 1 on 09/05/2008 at [place] [facility] N/A: Spine Cervical TAMMY & TAMMY DEPUY 1897-02-302 / / Depuy Uniplate Screw 14mm Implanted:Qty: 2 on 09/05/2008 at [place] [facility] N/A: Spine Cervical TAMMY & TAMMY DEPUY 1897-06-017 / / Depuy Lordotic Bengal Cage Implanted:Qty: 1 on 05/07/2010 at [place] [facility] N/A: Neck 1773-06-146 / 1773-06-146 / Plate Zach 3 Level Ti 54mm - [id number] Implanted:Qty: 1 on 05/07/2010 at [place] [facility] N/A: Neck JNJ : DEPUY SPINE [id number] / / Screw Zach Const St Ti 14mm - [id number] Implanted:Qty: 4 on 05/07/2010 at [place] [facility] N/A: Neck JNJ : DEPUY SPINE [id number] 14 / / Screw 3.5x14 Mntr Fa [id number] - [id number] Implanted:Qty: 8 on 05/07/2010 at [place] [facility] [place] N/A: Spine Cervical JNJ : ETHICON CARDIOVATIONS [id number] / / Jarrell [id number] - [id number] Implanted:Qty: 1 on 05/07/2010 at [place] [facility] N/A: Spine Cervical JNJ : ETHICON CARDIOVATIONS [id number] / / Screw Inner Mntr [id number] - [id number] Implanted:Qty: 8 on 05/07/2010 at [place] [facility] [place] N/A: Spine Cervical JNJ : ETHICON CARDIOVATIONS [id number] / / Envista Intraocular Lens Implanted:Qty: 1 on 03/10/2022 by Liang Marshall MD at OR [facility] Right: Eye BAUSCH & LOMB 08/13/2023 [id number] / [id number] / [id number] Envista Intraocular Lens Implanted:Qty: 1 on 03/24/2022 by Liang Marshall MD at OR [facility] Left: Eye BAUSCH & LOMB 07/13/2024 [id number] / [id number] / [id number] documented as of this encounter Advance Directives Documents on File Type Date Recorded 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 No Care Teams Table Hand Relationship Specialty Start Date End Date Jocelyne Desai DO [address] [place] [address] [place] [address] PCP - General Internal Medicine 11/09/16 documented as of this encounter
--- OUTSIDE RECORDS SUMMARY | 2024-01-29 17:53 | External Medical Summary ---
Author Name Unknown Address Unknown Organization K09:[facility] - [address] [place] [address] Laboratory Report Ordering Provider Test Date Status ENMANUEL REARDON 11/27/2023 10:12:02 Final Observation Date Value Abnormality Reference (Units ) Status BUN 11/27/2023 10:12:02 66 Above high normal 6-20 (mg/dL) Final Creatinine 11/27/2023 10:12:02 3.9 Above high normal 0.6-1.2 (mg/dL) Final Glomerular filtration rate/1.73 sq M.predicted [Volume Rate/Area] in Serum, Plasma or Blood by Creatinine-based formula (CKD-EPI) 11/27/2023 10:12:02 16 Below low normal >=60 (mL/min) Final eGFR is calculated based on the CKD-EPI 2020 equation. Sodium 11/27/2023 10:12:02 140 135-146 (m mol/L) Final Potassium 11/27/2023 10:12:02 4.1 3.5-5.1 (m mol/L) Final Cl 11/27/2023 10:12:02 107 98-107 (mm ol/L) Final CO2 11/27/2023 10:12:02 20 Below low normal 22- 32 (mmol/L) Final Anion gap 11/27/2023 10:12:02 13 7-15 (mmol /L) Final Glucose 11/27/2023 10:12:02 115 70-120 (mg /dL) Final Albumin 11/27/2023 10:12:02 3.4 Below low normal 3.8 -5.0 (g/dL) Final AST (Aspartate aminotransferase) 11/27/2023 10:12:02 22 10-50 (U/L) Fin al Alk Phos 11/27/2023 10:12:02 71 35-130 (U/ L) Final Bilirubin, Total 11/27/2023 10:12:02 0.2 <=1 .2 (mg/dL) Final Calcium 11/27/2023 10:12:02 8.3 Below low normal 8.4 -10.2 (mg/dL) Final Protein 11/27/2023 10:12:02 7.1 6.0-8.3 (g /dL) Final ALT (Alanine aminotransferase) 11/27/2023 10:12:02 23 10-50 (U/L) Darrell serrano Performing Location [facility] [place] [address]
--- OUTSIDE RECORDS SUMMARY | 2024-01-29 17:53 | External Medical Summary | Summary of Care ---
Author Name Unknown Organization [facility] Address [address] [place] [address] Phone [phone] Care Team Providers Care Butter Grader Name Role Phone Jocelyne Desai DO Primary Care Provider [phone] Reason for Visit * Reason Onset Date Comments Medication Refill 11/23/2023 Encounter Details Date Type Department Care Team (Late st Contact Info) Description 11/23/2023 Refill Care Coordination and Integration [address] [place] [address] Marilou Barfield, KWAME [address], [place] [id number] Kidney disease, chronic, stage IV (GFR 15-29 ml/min) ([facility])* Allergies No known active allergiesdocumented as of this encounter (statuses as of 11/23/2023) Medications Medication Sig Dispensed Refills Start Date [...] Candi ER 20 MEQ Oral Tablet Extended ReleaseIndication s:Kidney disease, chronic, stage IV (GFR 15-29 ml/min) ([facility]) Take one tablet TWICE daily Mon, Wed, Fri and one tablet ONCE daily other days of week 120 Tablet 1 11/23/2023 Active Potassium Chloride Candi ER 20 MEQ Oral Tablet Extended Release Take one tablet TWICE daily Mon, Wed, Fri and one tablet ONCE daily other days of week 120 Tablet 1 11/20/2023 4 Discontinue d(Refill) documented as of this encounter (statuses as of 11/23/2023) Active Problems Patient Care Coordination No te Formatting of this note migh t be different from the original. Good connectivity [facility] for wound care [phone] Televideo if needed. Problem Noted Date Diagnosed [...] from [facility] podiatry they were unable to get in [...] ICD-10 update of inactive term PLATT RESEARCH OTHER*[id number] 02/20/2007 ADVANCE DIRECTIVE INFORMATION 01/19/2005 Overview: Yes, Patient instructed to provide copy of advance directive for provider to review and to be scanned into Electronic Medical Record No, Advance Directive brochure given to patient at prior appointment. SPINAL STENOSIS-LUMBAR 09/23/2002 Vitamin D deficiency Cervical spinal stenosis documented as of this encounter (statuses as of 11/23/2023) Resolved Problems Problem Noted Date Diagnosed Date Resolved Date Chronic kidney disease (CKD) , stage IV (severe) 09/27/2023 10/26/2023 Depression, unspecified 11/09/2021 03/2 Depression, unspecified 11/09/202105/2022 Cellulitis of right leg 07/13/202105/2022 Last Assessment & Plan: Suspect this could be early/localized. Will treat with 7 days antibiotic. If pt cannot be reassess by Dr. Braxton office early next week will need [facility] provider recheck Multiple and open wound [...] 11/17/19 23 LUMBAGO 12/24/2002 05/09/2007 LOC PRIM [id number] 12/24/200208/13 DEGENERATIVE SKIN DISORD 12/24/2002 VERTEBRAL FX [...] as of this encounter (statuses as of 11/23/2023) Immunizations Name Administration Dates Next Due COVID-19 mRNA, LNP-s, No Pre serve, 2-Dose Series (Moderna) 03/19/2020 COVID-19 mRNA, LNP-s, No Pre serve, 2-Dose Series (Pfizer) 02/16/2021,04/09/2020,03/19/2020 COVID-19, MRNA-LNP, 23-24, P F, 30 MCG/0.3 mL, 12 YRS AND ABOVE, IM ([facility]) 11/16/2022 Covid-19, Mrna, Lnp-s, Pf, B [...] Telephone Encounter - Ladonna Fatima MD - 11/23/2023 4:11 PM EDTSigned Prescriptions: Disp Refills Potassium Chloride Candi ER 20 MEQ Oral Tab*120 Ta*1 Sig: Take one tablet TWICE daily Mon, Wed, Fri and one tablet ONCE daily other days of week Authorizing Provider: LADONNA FATIMA * Telephone Encounter - Marilou Barfield RN - 11/23/2023 11:04 AM EDT Please sign, script did not go to pharmacy. Thank you, Marilou Barfield, RN Kidney Transitions Specialist CKD Director International documented in this encounter Plan of Treatment Upcoming Encounters Date Type Department Care Team (Late st Contact Info) Description 11/27/2023 10:00 AM EDT Laboratory Laboratory [facility] [place] [address] [place] [phone] Kay[place] Lab [address] [facility] [place] [address] 11/27/2023 10:30 AM EDT Immunization/Injection Hematology/Oncology Treatment, [place] [address] [place] [address] Kayley, Chair 7 Hem Onc [facility] [address] [place] [address] 11/28/2023 6:30 AM EDT Anticoagulation Centralized Clinical Pharmacy Services, Ilya Lafleur [address] [place] [address] [place] [address] [place] [address] 11/30/2023 1:00 PM EDT Office Visit Nephrology [address] [place] [address] Ladonna Fatima MD [address] [place] [address] 12/04/2023 9:40 AM EDT Laboratory Laboratory [facility] [place] [address] [place] [phone] Park, Lab Scenery [address] [place] [address] 12/04/2023 10:00 AM EDT Office Visit Hematology/Oncology [facility] [place] [address] [place] [phone] Monse Coates MD [address] [place] [phone] 12/04/2023 10:30 AM EDT Immunization/Injection Hematology/Oncology Treatment, [place] [address] [place] [phone] Kayley, Chair 7 Hem Onc Scenery [address] [place] [address] 12/21/2023 2:00 PM EST Imaging Vascular Lab, [facility] 2nd [facility] [address] [facility] [place] [address] 12/27/2023 1:10 PM EST Office Visit Vascular Surgery, [facility] [address] [facility] [place] [address] Kaiden Woodall MD [address] [place] [address] 01/19/2024 9:00 AM EST Office Visit Gastroenterology [address] [place] [address] Moon Avila, OLEG [address] [place] [address] 02/20/2024 12:30 PM EST Nurse Only Ancillary [address] [place] [address] [place], Nurse Annual Wellness [address] [place] [address] [place] [address] 03/08/2024 2:30 PM EST Office Visit Family Medicine [address] [place] [phone] Jocelyne Desai, [address] [place] [address] Scheduled Procedures Name Priority Associated Diagnoses Date/Ti [...] 08/23/2023, 05/2022, 11/09/2022, Additional history exists GFR 05/20/2024 [...] encounter Medical Devices Implanted Type Area Retail Tire Sales Manager Device Identifier Shelf Expiration Date Model / Serial / Lot Shaft Fibula 6cm [id number] - [id number] Implanted:Qty: 1 on 09/05/2008 at [place] [facility] [place] Tissue - Human N/A: Spine Cervical MUSCULOSKELETAL TRANSPLANT FND 04/20/2010 [id number] / [id number] 0P / Stent Eso Gw 22x70 35824-076 - [id number] Implanted:Qty: 1 on 01/21/2008 at [place] [facility] [place] N/A: Esophagus ALVEOLUS INC 04/12/2009 09974-696 / / [id number] Depuy Uniplate 32 Implanted:Qty: 1 on 09/05/2008 [...] Plate Zach 3 Level Ti 54mm - [id number] Implanted:Qty: 1 on 05/07/2010 at [place] [facility] [place] N/A: Neck JNJ : DEPUY SPINE [id number] 54 / / Screw Zach Const St Ti 14mm - [id number] Implanted:Qty: 4 on 05/07/2010 at [place] [facility] [place] N/A: Neck JNJ : DEPUY SPINE [id number] 14 / / Screw 3.5x14 Mntr Fa [id number] - [id number] Implanted:Qty: 8 on 05/07/2010 at [place] [facility] [place] N/A: Spine Cervical JNJ : ETHICON CARDIOVATIONS [id number] / / Jarrell [id number] - [id number] Implanted:Qty: 1 on 05/07/2010 at [place] [facility] [place] N/A: Spine Cervical JNJ : ETHICON CARDIOVATIONS [id number] / / Screw Inner Mntr [id number] - [id number] Implanted:Qty: 8 on 05/07/2010 at [place] [facility] [place] N/A: Spine Cervical JNJ : ETHICON CARDIOVATIONS [id number] / / Envista Intraocular Lens Implanted:Qty: 1 on 03/10/2022 by Liang Marshall MD at OR [facility] Right: Eye BAUSCH & LOMB 08/13/2023 [id number] / [id number] / [id number] Envista Intraocular Lens Implanted:Qty: 1 on 03/24/2022 by Liang Marshall MD at OR [facility] Left: Eye BAUSCH & LOMB 07/13/2024 [id number] / [id number] / [id number] documented as of this encounter Visit Diagnoses Diagnosis Kidney disease, chronic, stage IV (GFR 15-29 ml/min) ([facility])- Primary Chronic kidney disease, Stage IV (severe) documented in this encounter Advance Directives Documents on File Type Date Recorded Patient Press Operator Meat Expl anation POL 01/26/2021 [place] OR [facility] FOR LIFE-SUSTAINING [...] Power of Attor andrew? No Care Teams Butter Grader Relationship Specialty Start Date End Date Jocelyne Desai DO [address] [place] [address] [place] [address] PCP - General Internal Medicine 11/09/16 documented as of this encounter
--- OUTSIDE RECORDS SUMMARY | 2024-01-29 17:53 | External Medical Summary ---
Author Name Unknown Address Unknown Organization K01:[facility] [place] [address] [place] [address] Laboratory Report Ordering Provider Test Date Status ENMANUEL REARDON 11/27/2023 10:12:02 Final Observation Date Value Abnormality Reference (Units ) Status Folic Acid 11/27/2023 10:12:02 9.5 >4.5 (ng/ mL) Final Performing Location [facility] - [address] [place] [address]
--- OUTSIDE RECORDS SUMMARY | 2024-01-29 17:53 | External Medical Summary ---
Author Name Unknown Address Unknown Organization K01:[facility] [place] [address] [place] [address] Laboratory Report Ordering Provider Test Date Status KUSHAL DOUGHERTY 11/27/2023 10:12:02 Final Deficient: <20 ng/mL
Ins ufficient: 20-29 ng/mL
Recommended/Optimum:30-50 ng/mL

Vitamin D intoxication is rare. If suspicious of Vitamin D toxicity, evaluation of serum Calcium and PTH is recommended. Observation Date Value Abnormality Reference (Units ) Status 25-OH Vitamin D total 11/27/2023 10:12:02 28 >19 (ng/mL) Final Performing Location [facility] - [address] [place] [address]
--- OUTSIDE RECORDS SUMMARY | 2024-01-29 17:53 | External Medical Summary ---
Author Name Unknown Address Unknown Organization K01:[facility] - [address] [place] [address] Laboratory Report Ordering Provider Test Date Status KUSHAL DOUGHERTY 11/27/2023 10:12:02 Final Observation Date Value Abnormality Reference (Units ) Status Iron 11/27/2023 10:12:02 44 Below low normal 45-176 (ug/dL) Final Iron-binding capacity 11/27/2023 10:12:02 260 250-425 (ug/dL) Final Transferrin Sat % 11/27/2023 10:12:02 17 15-55 (%) Final Performing Location [facility] - [address] [place] [address]
--- OUTSIDE RECORDS SUMMARY | 2024-01-29 17:53 | External Medical Summary ---
Author Name Unknown Address Unknown Organization K09:[facility] [place] [address] Laboratory Report Ordering Provider Test Date Status ENMANUEL REARDON 11/27/2023 10:12:02 Final Observation Date Value Abnormality Reference (Units ) Status WBC, Total 11/27/2023 10:12:02 4.72 4.00-10.8 0 (K/uL) Final RBC 11/27/2023 10:12:02 2.99 4.50-5.25 (M/uL) Final Hemoglobin 11/27/2023 10:12:02 8.7 Below low normal 14 .0-16.8 (g/dL) Final HCT 11/27/2023 10:12:02 28.1 Below low normal 40. 0-48.4 (%) Final MCV 11/27/2023 10:12:02 94.0 82.0-99.5 (fL) Final MCH 11/27/2023 10:12:02 29.1 27.0-34.0 (pg) Final MCHC 11/27/2023 10:12:02 31.0 32.0-36.0 (g/dL) Final RDW 11/27/2023 10:12:02 19.5 11.5-15.5 (%) Final Platelets 11/27/2023 10:12:02 212 140-400 (K /uL) Final MPV 11/27/2023 10:12:02 9.6 6.6-11.1 ( fL) Final Performing Location [facility] [place] [address]
--- OUTSIDE RECORDS SUMMARY | 2024-01-29 17:53 | External Medical Summary ---
Author Name Unknown Address Unknown Organization K09:[facility] [place] [address] Laboratory Report Ordering Provider Test Date Status ENMANUEL REARDON 11/27/2023 10:12:02 Final Observation Date Value Abnormality Reference (Units ) Status SYNC LEUKOCYTES IN BLOOD BY AUTOMATED COUNT 11/27/2023 10:12:02 4.72 4.00-10.80 (K/uL) Final Segs 11/27/2023 10:12:02 64.4 40.0-75.0 (%) Final Lymphs % 11/27/2023 10:12:02 20.8 18.0-42.0 (%) Final Monos 11/27/2023 10:12:02 10.4 1.0-11.0 (%) Final Eosinophils 11/27/2023 10:12:02 4.2 0.0-6.0 (%) Final Basos 11/27/2023 10:12:02 0.2 0.0-2.0 (%) Final Absolute Segs 11/27/2023 10:12:02 3.04 1.80-7.70 (K/uL) Final Lymphs, absolute 11/27/2023 10:12:02 0.98 Below low normal 1.00-4.80 (K/ul) Final Monos, Abs 11/27/2023 10:12:02 0.49 0.00-1.10 (K/uL) Final Eos, Abs 11/27/2023 10:12:02 0.20 0.00-0.70 (K/uL) Final Basos, Abs 11/27/2023 10:12:02 0.01 0.00-0.20 (K/uL) Final Performing Location [facility] [place] [address]
--- OUTSIDE RECORDS SUMMARY | 2024-01-29 17:53 | External Medical Summary | Summary of Care ---
Author Name Unknown Organization [facility] Address [address] [facility] [address] Phone [phone] Care Team Providers Care Data Management Associate Name Role Phone Desai Jocelyne Cunninghambritany ASHTON Primary Care Provider + [phone] Reason for Visit * Reason Comments IV Therapy Monoferric * Episode Based Medications (Routine) - Authorized Specialty Diagnoses / Procedures Referred By Mingo t Referred To Contact Diagnoses Iron deficiency anemia due to chronic blood loss 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) H/O gastric bypass Procedures ID INJ. FE DERISOMALTOSE 10 MG Nichelle Booker CRNP [address] [facility] [place] [address] Anc Hem/Onc [address] [address] Referral ID Status Reason Start Date Expiration Date V isits Requested Visits Authorized [id number] Authorized 11/03/2023 02/12/2099 [id number] Encounter Details Date Type Department Care Team (Latest Contact Info) Description 11/06/2023 2:30 PM EDT Hem/Onc Treatment Hematology/Oncology Treatment, [address] [address] Kayley, Chair 11 Hem Onc [address] [place] [address] Iron deficiency anemia due to chronic blood loss*; 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); H/O gastric bypass Allergies No known active allergiesdocumented as of this encounter (statuses as of 11/26/2023) Medications Medication Sig Dispensed Refills Start Date [...] morning and 1 Tablet before bedtime. Active Midodrine HCl 2.5 MG Oral Tablet (Proamatine) Take 1 Tablet by mouth in the morning and 1 Tablet at noon and 1 Tablet in the evening. 90 Tablet 2 07/25/2023 Discontinued Torsemide 20 MG Oral Tablet (Demadex) Take 1 Tablet by mouth in the morning. 100 Tablet 1 11/01/2023 4 Discontinued Potassium Chloride Candi ER 20 MEQ Oral Tablet Extended Release Take 1 Tablet by mouth in the morning. 100 Tablet 1 11/01/2023 4 Discontinued documented as of this encounter (statuses as of 11/26/2023) Active Problems Patient Care Coordination No te Formatting of this note migh t be different from the original. Good connectivity [facility] for wound care [phone] Televideo if needed. Problem Noted Date Diagnosed [...] up with podiatry,. Letter in chart from [facility] podiatry they were unable to get [...] ICD-10 update of inactive term PLATT RESEARCH OTHER*[id number] 02/20/2007 ADVANCE DIRECTIVE INFORMATION 01/19/2005 Overview: Yes, Patient instructed to provide copy of advance directive for provider to review and to be scanned into Electronic Medical Record No, Advance Directive brochure given to patient at prior appointment. SPINAL STENOSIS-LUMBAR 09/23/2002 Vitamin D deficiency Cervical spinal stenosis documented as of this encounter (statuses as of 11/26/2023) Resolved Problems Problem Noted Date Diagnosed Date [...] 11/17/19 23 LUMBAGO 12/24/2002 05/09/2007 LOC PRIM [id number] 12/24/200208/13 DEGENERATIVE SKIN DISORD 12/24/2002 VERTEBRAL FX [...] as of this encounter (statuses as of 11/26/2023) Immunizations Name Administration Dates Next Due COVID-19 [...] as of this encounter Nursing Notes * Snow Reed RN - 11/06/2023 5:17 PM EDT Patient instructed on use of heat and massage functions where applicable. Patient shown how to operate the heat function of the chair and to alert nursing staff if the chair feels too warm. Patient instructed on the risk of potential rueda while using the heat function. Pt completed treatment without issues. IV removed. Goals: Pt will remain free from injury. Possible barriers to meeting goals: pt is a high fall risk, risk of reaction Stability of the patient: Moderately unstable - medium risk of patient condition declining or worsening Summary regarding today's goals: Met: . Pt remained free from injury during treatment today. Discharged in stable condition. * Snow Reed RN - 11/06/2023 3:22 PM EDT Chair 7, Monoferric. Pt seen by Dr. Coates; refer to OV notes. PIV established; Monoferric infusing. Safety and Risk for Injury Patient will remain free from injury. Ensure appropriate safety devices are available. Provide and maintain safe environment. documented in this encounter Plan of Treatment Upcoming Encounters Date Type Department Care Team (Late st Contact Info) Description 11/27/2023 10:00 AM EDT Laboratory Laboratory [place] [address] [facility] [place] [phone] Kayley, Lab Scenery [address] [place] [address] 11/27/2023 10:30 AM EDT Immunization/Injection Hematology/Oncology Treatment, [place] [address] [facility] [place] [phone] Kayley, Chair 7 Hem Onc [address] [place] [address] 11/28/2023 6:30 AM EDT Anticoagulation Centralized Clinical Pharmacy Services, Ilya Lafleur [address] [place] [address] [place] [address] [facility], [address] [place] [address] 11/30/2023 1:00 PM EDT Office Visit Nephrology [address] [place] [address] Jennifer Agustin MD [address] [place] [address] 12/04/2023 9:40 AM EDT Laboratory Laboratory [facility] State Gallo Zaldivar [address] [place] [phone] Kayley, Lab Scenery [address] [address] 12/04/2023 10:00 AM EDT Office Visit Hematology/Oncology [facility] State Gallo Zaldivar [address] [place] [phone] Monse Coates MD [address] [place] [address] [place] [address] 12/04/2023 10:30 AM EDT Immunization/Injection Hematology/Oncology Treatment, [place] [address] [place] [phone] Kayley, Chair 7 Hem Onc Sc[address] [place] [address] 12/21/2023 2:00 PM EST Imaging Vascular Lab, [facility] [place] [facility] [address] [place] [address] 12/27/2023 1:10 PM EST Office Visit Vascular Surgery, [facility] 132 [facility] [place] [address] Kaiden Woodall MD [address] [facility] [place] [address] 01/19/2024 9:00 AM EST Office Visit Gastroenterology [address] [place] [address] Moon Avila CRNP 132 [facility] [place] [address] 02/20/2024 12:30 PM EST Nurse Only Ancillary [address] [place] [address] [place], Nurse [address] [place] [address] 03/08/2024 2:30 PM EST Office Visit Family Medicine [address] [place] [phone] Jocelyne Desai[address] [place] [address] Scheduled Procedures Name Priority Associated Diagnoses Date/Ti [...] this encounter Medical Devices Implanted Type Area Emu Farm Worker Device Identifier Shelf Expiration Date Model / Serial / Lot Shaft Fibula 6cm [id number] - [id number] Implanted:Qty: 1 on 09/05/2008 [place] [facility] [place] - Human N/A: Spine Cervical MUSCULOSKELETAL TRANSPLANT FND 04/20/2010 [id number] / [id number] 0P / Stent Eso Gw 22x70 [id number] - [id number] Implanted:Qty: 1 on 01/21/2008 at [place] [facility] [place] N/A: Esophagus [employer] 04/12/2009 [id number] / / [id number] Depuy Uniplate 32 Implanted:Qty: 1 on 09/05/2008 [...] [facility] N/A: Neck [id number] / [id number] / Plate Zach 3 Level Ti 54mm - [id number] Implanted:Qty: 1 on 05/07/2010 at [place] [facility] [place] N/A: Neck JNJ : DEPUY SPINE [id number] / / Screw Zach Const St Ti 14mm - [id number] Implanted:Qty: 4 on 05/07/2010 at [place] [facility] [place] N/A: Neck JNJ : DEPUY SPINE [id number] / / Screw 3.5x14 Mntr Fa [id number] - [id number] Implanted:Qty: 8 on 05/07/2010 at [place] [facility] [place] N/A: Spine Cervical JNJ : ETHICON CARDIOVATIONS [id number] / / Jarrell [id number] - [id number] Implanted:Qty: 1 on 05/07/2010 at [place] [facility] [place] N/A: Spine Cervical JNJ : ETHICON CARDIOVATIONS [id number] / / Screw Inner Mntr [id number] - [id number] Implanted:Qty: 8 on 05/07/2010 at [place] [facility] [place] N/A: Spine Cervical JNJ : ETHICON CARDIOVATIONS [id number] / / Envista Intraocular Lens Implanted:Qty: 1 on 03/10/2022 by Liang Marshall MD at [place] [facility] Right: Eye BAUSCH & LOMB 08/13/2023 [id number] / [id number] / [id number] Envista Intraocular Lens Implanted:Qty: 1 on 03/24/2022 by Liang Marshall MD at [place] [facility] Left: Eye BAUSCH & LOMB 07/13/2024 [id number] / [id number] / [id number] documented as of this encounter Visit Diagnoses Diagnosis Iron deficiency anemia due to chronic blood loss- Primary Iron deficiency anemia secondary to blood loss (chronic) 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) H/O gastric bypass Bariatric surgery status documented in this encounter Administered Medications Inactive Administered Medications - up to 3 most recent administrations Medication Order MAR Action Action Date Dose Rate Site Ferric derisomaltose (Monoferric) 1,000 mg in NSS 250 mL ivpb 1,000 mg, IV Piggyback, ONCE, 1 dose, On Mon11/06/23 at 1545, Administer over 30 Minutes, DOSING GUIDELINES: For patient weight LESS THAN 50 kg: Dose 20 mg/kg For patient weight 50 Kg or greater: Dose 1000 mg Start Infusion 11/06/2023 3:12 PM EDT 1,000 mg 530 mL/hr NSS infusion Intravenous, at 50 mL/hr, PRN, Starting on Mon11/06/23 at 1615, Until Mon11/06/23 at 2120, Maintenance line Start Infusion 11/06/2023 3:10 PM EDT 50 mL/hr documented in this encounter Advance Directives Documents on File Type Date Recorded 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 No Care Teams Data Management Associate Relationship Specialty Start Date End Date Jocelyne Desai DO [address] [place] [address] [place] [address] PCP - General Internal Medicine 11/09/16 documented as of this encounter
--- OUTSIDE RECORDS SUMMARY | 2024-01-29 17:53 | External Medical Summary ---
Author Name Unknown Address Unknown Organization K01:[facility] [place] [address] [place] [address] Laboratory Report Ordering Provider Test Date Status ENMANUEL REARDON 11/27/2023 10:12:02 Final Observation Date Value Abnormality Reference (Units ) Status Vitamin B12 11/27/2023 10:12:02 620 527-7372 (pg/mL) Final Performing Location LAB[facility]ORY [facility] - [address] [place] [address]
--- OUTSIDE RECORDS SUMMARY | 2024-01-29 17:53 | External Medical Summary ---
Author Name Unknown Address Unknown Organization K01:LABORATORY [facility] [place] - [address] [place] [address] Laboratory Report Ordering Provider Test Date Status LADONNAFATIMA 11/27/2023 10:12:02 Final Normal: <30 mg/g creatinine< br/>High: 30-300 mg/g creatinine
Very High: >300 mg/g creatinine
Nephrotic: >2200 mg/g creatinine Observation Date Value Abnormality Reference (Units ) Status Albumin, Urine 11/27/2023 10:12:02 20.00 (mg/dL) Final Creatinine, Urine 11/27/2023 10:12:02 77 (mg/dL) Final Albumin/Creatinine [Mass Ratio] in Urine 11/27/2023 10:12:02 260 Above high normal <30 (mg/g Creat) Final Performing Location LAB[facility]ATORY [facility] [place] - [address] [place] [address]
--- OUTSIDE RECORDS SUMMARY | 2024-01-29 17:53 | External Medical Summary ---
Author Name Unknown Address Unknown Organization K01:[facility] [place] - [address] [place] [address] Laboratory Report Ordering Provider Test Date Status KUSHAL DOUGHERTY 11/27/2023 10:12:02 Final Observation Date Value Abnormality Reference (Units ) Status Parathyrin.intact [Mass/volume] in Serum or Plasma 11/27/2023 10:12:02 292 Above high normal 15-65 (pg/mL) Final Performing Location [facility] [place] - [address] [place] [address]
--- OUTSIDE RECORDS SUMMARY | 2024-01-29 17:53 | External Medical Summary ---
Author Name Unknown Address Unknown Organization K01:[facility] - [address] [place] [address] Laboratory Report Ordering Provider Test Date Status ENMANUEL REARDON 11/27/2023 10:12:02 Final Observation Date Value Abnormality Reference (Units ) Status Ferritin 11/27/2023 10:12:02 255 30-400 (ng /mL) Final Performing Location [facility] - [address] [place] [address]
--- OUTSIDE RECORDS SUMMARY | 2024-01-29 17:54 | External Medical Summary | Summary of Care ---
Author Name Unknown Organization [facility] Address [address] [place] [address] Phone [phone] Care Team Providers Care Technician Name Role Phone Jocelyne Desai Primary Care Provider [phone] Reason for Visit * Reason Onset Date Comments TRIAGE 11/21/2023 Encounter Details Date Type Department Care Team (Late st Contact Info) Description 11/21/2023 Telephone Vascular Surgery, [facility] 132 [facility] [place] [address] Kaiden Woodall MD [address] [place] [address] TRIAGE Allergies No known active allergiesdocumented as of this encounter (statuses as of 11/21/2023) Medications Medication Sig Dispensed Refills Start Date [...] days of week 120 Tablet 1 11/20/2023 Active documented as of this encounter (statuses as of 11/21/2023) Active Problems Patient Care Coordination No te Formatting of this note migh t be different from the original. Good connectivity [facility] for wound care [phone] Televideo if needed. Problem Noted Date Diagnosed [...] ICD-10 update of inactive term PLATT RESEARCH OTHER*[id number] 02/20/2007 ADVANCE DIRECTIVE INFORMATION 01/19/2005 Overview: Yes, Patient instructed to provide copy of advance directive for provider to review and to be scanned into Electronic Medical Record No, Advance Directive brochure given to patient at prior appointment. SPINAL STENOSIS-LUMBAR 09/23/2002 Vitamin D deficiency Cervical spinal stenosis documented as of this encounter (statuses as of 11/21/2023) Resolved Problems Problem Noted Date Diagnosed Date [...] 11/17/19 23 LUMBAGO 12/24/2002 05/09/2007 LOC PRIM [id number] 12/24/200208/13 DEGENERATIVE SKIN DISORD 12/24/2002 VERTEBRAL FX [...] as of this encounter (statuses as of 11/21/2023) Immunizations Name Administration Dates Next Due COVID-19 [...] encounter Miscellaneous Notes * Telephone Encounter - Duke Alvarez PA-C [...] Description 11/27/2023 10:00 AM EDT Laboratory Laboratory State [place]alo [place] [address] [place] [phone] Presley Zaldivar [address] [place] [place] [address] 11/27/2023 10:30 AM EDT Immunization/Injection Hematology/Oncology Treatment, State [place] [address] [place] [phone] Kayley, Chair [address] [facility] [address] [place] [address] 11/28/2023 6:30 AM EDT Anticoagulation Centralized Clinical Pharmacy Services, Ilya Lafleur [address] [place] [address] [place] [address] [place] [address] 11/30/2023 1:00 PM EDT Office Visit Nephrology [address] [place] [address] Jennifer Agustin MD [address] [place] [address] 12/04/2023 9:40 AM EDT Laboratory Laboratory [place] Gallo [place] [address] [place] [phone] [address] [facility] [place] [address] 12/04/2023 10:00 AM EDT Office Visit Hematology/Oncology [facility] [address] [place] [phone] Monse Coates MD [address] [place] [address] [place] [address] 12/04/2023 10:30 AM EDT Immunization/Injection Hematology/Oncology Treatment, [place] [address] [place] [phone] Kayley, Chair 7 Hem Onc [address] [facility] [place] [address] 12/27/2023 1:10 PM EST Office Visit Vascular Surgery, [facility] [address] [place] [address] Kaiden Woodall MD [address] [place] [address] 01/19/2024 9:00 AM EST Office Visit Gastroenterology [address] [place] [address] Moon Avila CRNP [address] [place] [address] 02/20/2024 12:30 PM EST Nurse Only Ancillary [address] [place] [address] Marleeey, Nurse [address] [place] [address] 03/08/2024 2:30 PM EST Office Visit Family Medicine [address] [place] [phone] Desai, Jocelyne Briggs[address] [place] [address] Scheduled Orders Name Type Priority Associated Diagnoses Orde r Schedule VASC PRE OP DIALYSIS ACCESS EVAL - BILAT Medical Imaging Routine ESRD (end stage renal disease) ([facility]) Ordered: 11/21/2023 Scheduled Procedures Name Priority Associated [...] encounter Medical Devices Implanted Type Area Project Estimator Device Identifier Shelf Expiration Date Model / Serial / Lot Shaft Fibula 6cm [id number] - [id number] Implanted:Qty: 1 [place] 09[place]05[place] [facility] [place] - Human N/A: Spine Cervical MUSCULOSKELETAL TRANSPLANT FND 04/20/2010 [id number] / [id number] / Stent Eso Gw 22x70 [id number] - [id number] Implanted:Qty: 1 on 01/21/2008 [place] [facility] [place] N/A: Esophagus ALVEOLUS INC 04/12/2009 [id number] / / [id number] Depuy Uniplate 32 Implanted:Qty: 1 on 09/05/2008 [...] Plate Zach 3 Level Ti 54mm - [id number] Implanted:Qty: 1 on 05/07/2010 [place] [facility] [place]A: Neck JNJ : DEPUY SPINE [id number] / / Screw Zach Const St Ti 14mm - [id number] Implanted:Qty: 4 on 05/07/2010 [place] [facility] [place]/A: Neck JNJ : DEPUY SPINE [id number] / / Screw 3.5x14 Mntr Fa [id number] - [id number] Implanted:Qty: 8 on 05/07/2010 [place] [facility] [place] N/A: Spine Cervical JNJ : ETHICON CARDIOVATIONS [id number] / / Jarrell [id number] - [id number] Implanted:Qty: 1 on 05/07/2010 [place] [facility] [place] N/A: Spine Cervical JNJ : ETHICON CARDIOVATIONS [id number] / / Screw Inner Mntr [id number] - [id number] Implanted:Qty: 8 on 05/07/2010 [place] [facility] [place] N/A: Spine Cervical JNJ : ETHICON CARDIOVATIONS [id number] / / Envista Intraocular Lens Implanted:Qty: 1 on 03/10/2022 by Liang Marshall MD at OR [facility] Right: Eye BAUSCH & LOMB 08/13/2023 [id number] / [id number] / [id number] Envista Intraocular Lens Implanted:Qty: 1 on 03/24/2022 by Liang Marshall MD at OR [facility] Left: Eye BAUSCH & LOMB 07/13/2024 [id number] / [id number] / [id number] documented as of this encounter Visit Diagnoses Diagnosis ESRD (end stage renal disease) (HCC)- Primary End stage renal disease documented in this encounter Advance Directives Documents on File Type Date Recorded 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 No Care Teams Technician Relationship Specialty Start Date End Date Jocelyne Desai DO [address] [place] [address] [place] [address] PCP - General Internal Medicine 11/09/16 documented as of this encounter
--- OUTSIDE RECORDS SUMMARY | 2024-01-29 17:54 | External Medical Summary | Summary of Care ---
Author Name Unknown Organization [facility] Address [address] [place] [address] Phone [phone] Care Team Providers Care Market Research Consultant Name Role Phone Jocleyne Desai DO Primary Care Provider [phone] Reason for Visit * Reason Onset Date Comments Encounter Created in Error 11/23/2023 Encounter Details Date Type Department Care Team (Late st Contact Info) Description 11/23/2023 Telephone Care Coordination and Integration [address] [place] [address] Marilou Barfield, KWAME [address], [place] [id number] Encounter Created in Error Allergies No known [...] be different from the original. Good connectivity [facility] for wound care [phone] Televideo if needed. Problem Noted Date Diagnosed [...] with podiatry,. 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 1 [...] ICD-10 update of inactive term PLATT RESEARCH OTHER*[id number] 02/20/2007 ADVANCE DIRECTIVE INFORMATION 01/19/2005 Overview: Yes, [...] 11/17/19 23 LUMBAGO 12/24/2002 05/09/2007 LOC PRIM [id number] 12/24/200208/13 DEGENERATIVE SKIN DISORD 12/24/2002 VERTEBRAL FX [...] encounter Miscellaneous Notes * Telephone Encounter - Marilou Barfield RN - 11/23/2023 11:09 AM EDT Error documented in this encounter Plan of Treatment Upcoming Encounters Date Type Department Care Team (Late st Contact Info) Description 11/27/2023 10:00 AM EDT Laboratory Laboratory State Gallo Henley [address] [place] [phone] Presley Zaldivar [address] [place] [place] [address] 11/27/2023 10:30 AM EDT Immunization/Injection Hematology/Oncology Treatment, State Holder [address] [place] [phone] Kayley, Chair 7 Hem Onc [facility] [address] [place] [address] 11/28/2023 6:30 AM EDT Anticoagulation Centralized Clinical Pharmacy Services, Ilya Lafleur [address] [place] [address] [place] [address] [facility], [address] [place] [address] 11/30/2023 1:00 PM EDT Office Visit Nephrology [address] [place] [address] Jennifer Agustin MD [address] [place] [address] 12/04/2023 9:40 AM EDT Laboratory Laboratory [place] Gall[place] Henley [address] [phone] Presley Zaldivar [address] [place] [address] 12/04/2023 10:00 AM EDT Office Visit Hematology/Oncology [place] [address] [place] [address] [phone] Monse Coates MD [address] [place] [address] [place] [address] 12/04/2023 10:30 AM EDT Immunization/Injection Hematology/Oncology Treatment, [place] [address] [place] [address] Park, Chair 7 Hem Onc [facility] 200 [place] [address] 12/21/2023 2:00 PM EST Imaging [facility] [address] [place] [address] 12/27/2023 1:10 PM EST Office Visit Vascular Surgery, [facility] [address] [place] [address] Kaiden Woodall MD [address] [facility] [place] [address] 01/19/2024 9:00 AM EST Office Visit Gastroenterology [address] [place] [address] Moon Avila CRNP [address] [place] [address] 02/20/2024 12:30 PM EST Nurse Only Ancillary [address] [place] [address] [place], Nurse Annual [address] [place] [address] 03/08/2024 2:30 PM EST Office Visit Family Medicine [address] [place] [phone] Jocelyne Desai, [address] [place] [address] Scheduled Procedures Name Priority Associated Diagnoses Date/Ti [...] this encounter Medical Devices Implanted Type Area Source Inspector Device Identifier Shelf Expiration Date Model / Serial / Lot Shaft Fibula 6cm [id number] - [id number] Implanted:Qty: 1 on 09/05/2008 [place] [facility] [place] - Human N/A: Spine Cervical MUSCULOSKELETAL TRANSPLANT FND 04/20/2010 [id number] / [id number] 0P / Stent Eso Gw 22x70 [id number] - [id number] Implanted:Qty: 1 on 01/21/2008 at [place] [facility] [place] N/A: Esophagus [employer] 04/12/2009 [id number] / / [id number] Depuy Uniplate 32 Implanted:Qty: 1 on 09/05/2008 [...] Plate Zach 3 Level Ti 54mm - [id number] Implanted:Qty: 1 on 05/07/2010 at [place] [facility] [place] N/A: Neck JNJ : DEPUY SPINE [id number] / / Screw Zach Const St Ti 14mm - [id number] Implanted:Qty: 4 on 05/07/2010 at [place] [facility] [place] N/A: Neck JNJ : DEPUY SPINE [id number] / / Screw 3.5x14 Mntr Fa [id number] - [id number] Implanted:Qty: 8 on 05/07/2010 at [place] [facility] [place] N/A: Spine Cervical JNJ : ETHICON CARDIOVATIONS [id number] / / Jarrell [id number] - [id number] Implanted:Qty: 1 on 05/07/2010 at [place] [facility] [place] N/A: Spine Cervical JNJ : ETHICON CARDIOVATIONS [id number] / / Screw Inner Mntr [id number] - [id number] Implanted:Qty: 8 on 05/07/2010 at [place] [facility] [place] N/A: Spine Cervical JNJ : ETHICON CARDIOVATIONS [id number] / / Envista Intraocular Lens Implanted:Qty: 1 on 03/10/2022 by Liang Marshall MD at OR [facility] Right: Eye BAUSCH & LOMB 08/13/2023 [id number] / [id number] / [id number] Envista Intraocular Lens Implanted:Qty: 1 on 03/24/2022 by Liang Marshall MD at OR [facility] Left: Eye BAUSCH & LOMB 07/13/2024 [id number] / [id number] / [id number] documented as of this encounter Advance Directives Documents on File Type Date Recorded 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 No Care Teams Market Research Consultant Relationship Specialty Start Date End Date Jocelyne Desai DO [address] [place] [address] [place] [phone] PCP - General Internal Medicine 11/09/16 documented as of this encounter
--- OUTSIDE RECORDS SUMMARY | 2024-01-29 17:54 | External Medical Summary | Summary of Care ---
Author Name Unknown Organization [facility] Address [address] [facility] [place] [address] Phone [phone] Care Team Providers Care Matrix Plater Name Role Phone DesaiElissaJocelynejohn Cunninghame DO Primary Care Provider + [phone] Reason for Visit * Reason Comments Dosage Adjustment Via Phone (anticoag Cl inic) Encounter Details Date Type Department Care Team (Late st Contact Info) Description 11/21/2023 6:15 AM EDT Anticoagulation Centralized Clinical Pharmacy Services, Ilya Lafleur [address] [place] [address] [place] [address] [facility], [address] [place] [address] Chronic atrial fibrillation (HCC)* Allergies No known [...] [facility] for wound care [phone] Televideo if needed. Problem Noted Date Diagnosed [...] up with podiatry,. Letter in chart from [facility] podiatry they were unable to [...] ICD-10 update of inactive term PLATT RESEARCH OTHER*[id number] 02/20/2007 ADVANCE DIRECTIVE INFORMATION 01/19/2005 Overview: Yes, [...] 11/17/19 23 LUMBAGO 12/24/2002 05/09/2007 LOC PRIM [id number] 12/24/200208/13 DEGENERATIVE SKIN DISORD 12/24/2002 VERTEBRAL FX [...] Progress Notes * Estefania Palacios RPh - 11/21/2023 9:53 AM EDT Agree with plan. Estefania Palacios Rph, Pharm.D. Clinical Pharmacist Telepharmacy [phone] 11/21/2023,9:53 AM documented in this encounter Plan of Treatment Upcoming Encounters Date Type Department Care Team (Late st Contact Info) Description 11/27/2023 10:00 AM EDT Laboratory Laboratory [facility] [place] [address] [place] [phone] Kayley, Lab [facility] [address] [address] 11/27/2023 10:30 AM EDT Immunization/Injection Hematology/Oncology Treatment, [place] [address] [place] [phone] Kayley, Chair 7 Hem Onc [facility] 200 [facility] [place] [address] 11/28/2023 6:30 AM EDT Anticoagulation Centralized Clinical Pharmacy Services, Ilya Lafleur [address] [place] [address] [place] [address] [facility], [address] [place] [address] 11/30/2023 1:00 PM EDT Office Visit Nephrology [address] [place] [address] Jennifer Agustin MD [address] [place] [address] 12/04/2023 9:40 AM EDT Laboratory Laboratory [facility] [place] [address] [place] [phone] Kayley Lab C[place] [address] [place] [address] [address] 12/04/2023 10:00 AM EDT Office Visit Hematology/Oncology [facility] Kayley [place] [address] [place] [phone] Monse Coates MD [address] [address] [place] [address] 12/04/2023 10:30 AM EDT Immunization/Injection Hematology/Oncology Treatment, [place] [address] [place] [phone] Park, Chair 7 Hem Onc [place] [address] [place] [address] 12/27/2023 1:10 PM EST Office Visit Vascular Surgery, [facility] [address] [place] [address] Kaiden Woodall MD [address] [facility] [address] 01/19/2024 9:00 AM EST Office Visit Gastroenterology [address] [place] [address] Moon Avila CRNP [address] [place] [address] 02/20/2024 12:30 PM EST Nurse Only Ancillary [address] [place] [address] [place], Nurse Annual [address] [place] [address] 03/08/2024 2:30 PM EST Office Visit Family Medicine [address] [place] [phone] Jocelyne Desai, [address] [place] [address] Scheduled Procedures Name Priority Associated Diagnoses Date/Ti [...] this encounter Medical Devices Implanted Type Area Bracelet Form Coverer Device Identifier Shelf Expiration Date Model / Serial / Lot Shaft Fibula 6cm [id number] - [id number] Implanted:Qty: 1 on 09/05/[address] [facility] [place] - Human N/A: Spine Cervical MUSCULOSKELETAL TRANSPLANT FND 04/20/2010 [id number] / [id number] 0P / Stent Eso Gw 22x70 47101-998 - [id number] Implanted:Qty: 1 on 01/21/[address] [facility] [place]/A: Esophagus [employer]US INC 04/12/2009 38904-229 / / [id number] Depuy Uniplate 32 Implanted:Qty: 1 on 09[place]05/[place] Neck 1773-06-146 / 1773-146 / Plate Zach 3 Level Ti 54mm - [id number] Implanted:Qty: 1 on 05/07/[address] [facility] [place]/A: Neck JNJ : DEPUY SPINE [id number] 54 / / Screw Zach Const St Ti 14mm - [id number] Implanted:Qty: 4 on 05/07/[address] [facility] [place]/A: Neck JNJ : DEPUY SPINE [id number] 14 / / Screw 3.5x14 Mntr Fa [id number] - [id number] Implanted:Qty: 8 on 05/07/[address] [facility] [place]/A: Spine Cervical JNJ : ETHICON CARDIOVATIONS [id number] / / Jarrell [id number] - [id number] Implanted:Qty: 1 on 05/07/[address] [facility] [place]/A: Spine Cervical JNJ : ETHICON CARDIOVATIONS [id number] / / Screw Inner Mntr [id number] - [id number] Implanted:Qty: 8 on 05/07/[address] [facility] [place]/A: Spine Cervical JNJ : ETHICON CARDIOVATIONS [id number] / / Envista Intraocular Lens Implanted:Qty: 1 on 03/10/2022 by Liang Marshall MD at OR [facility] Right: Eye BAUSCH & LOMB 08/13/2023 [id number] / [id number] / [id number] Envista Intraocular Lens Implanted:Qty: 1 on 03/24/2022 by Liang Marshall MD at OR [facility] Left: Eye BAUSCH & LOMB 07/13/2024 [id number] / [id number] / [id number] documented as of this encounter Visit Diagnoses Diagnosis Chronic atrial fibrillation (HCC)- Primary Atrial fibrillation documented in this encounter Advance Directives Documents on File Type Date Recorded Patient Pr Specialist Expl anation POLST 01/26/2021 [facility] [address] [address] FOR LIFE-SUSTAINING TREATMENT * No Code (Latest [...] Power of Attor andrew? No Care Teams Matrix Plater Relationship Specialty Start Date End Date Jocelyne Desai DO [address] [place] [address] [place] [phone] PCP - General Internal Medicine 11/09/16 documented as of this encounter
--- OUTSIDE RECORDS SUMMARY | 2024-01-29 17:54 | External Medical Summary | Summary of Care ---
Author Name Unknown Organization [facility] Address [address] [facility] [place] [address] Phone [phone] Care Team Providers Care Merchandise Manager Name Role Phone Desai Jocelyne Briggs Primary Care Provider + [phone] Reason for Visit * Reason Comments Outpatient Testing Encounter Details Date Type Department Care Team (Late st Contact Info) Description 11/20/2023 1:40 PM EDT Laboratory Laboratory [facility] [place] [address] [place] [phone] [facility] Lab [facility] [address] [place] [address] Chronic atrial fibrillation (HCC); JORGE (acute kidney injury) (HCC); Stage 4 chronic kidney disease (HCC); Other hypervolemia Allergies No known active allergiesdocumented as of this encounter (statuses as of 11/20/2023) Medications Medication Sig Dispensed Refills Start Date [...] evening. 90 Tablet 2 07/25/2023 4 Discontinued Torsemide 20 MG Oral Tablet (Demadex) Take 1 Tablet by mouth in the morning. 100 Tablet 1 11/01/2023 4 Discontinued Potassium Chloride Candi ER 20 MEQ Oral Tablet Extended Release Take 1 Tablet by mouth in the morning. 100 Tablet 1 11/01/2023 4 Discontinued documented as of this encounter (statuses as of 11/20/2023) Active Problems Patient Care Coordination No te Formatting of this note migh t be different from the original. Good connectivity [facility] for wound care [phone] Televideo if needed. Problem Noted Date Diagnosed [...] up with podiatry,. 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 SPINAL STENOSIS-LUMBAR 09/23/2002 Vitamin D deficiency Cervical spinal stenosis documented as of this encounter (statuses as of 11/20/2023) Resolved Problems Problem Noted Date Diagnosed Date [...] next week will need [facility] provider recheck Multiple and open wound of [...] 11/17/19 23 LUMBAGO 12/24/2002 05/09/2007 LOC PRIM [id number] 12/24/200208/13 DEGENERATIVE SKIN DISORD 12/24/2002 VERTEBRAL FX [...] as of this encounter (statuses as of 11/20/2023) Immunizations Name Administration Dates Next Due COVID-19 [...] Centralized Clinical Pharmacy Services, Ilya Lafleur [address] [place] [address] [place] [address] [facility], [address] [place] [address] 11/30/2023 12:40 PM EDT Office Visit Nephrology [address] [place] [address] Jennifer [facility]ustin MD 200 [facility] [address] 01/19/2024 9:00 AM EST Office Visit Gastroenterology [address] [place] [address] Moon Avila CRNP [address] [place] [address] 02/20/2024 12:30 PM EST Nurse Only Ancillary [address] [place] [address] [place], Nurse Annual [address] [place] [address] 03/08/2024 2:30 PM EST Office Visit Family Medicine [address] [place] [phone] Jocelyne Desai, [address] [place] [address] Pending Results Name Type Priority Associated Diagnoses Date /Time BASIC METABOLIC PANEL Lab Routine JORGE (acute kidney injury) (HCC) Stage 4 chronic kidney disease (HCC) Other hypervolemia 11/20/2023 3:26 PM EDT Scheduled Procedures Name Priority Associated [...] 08/23/2023, 05/2022, 11/09/2022, Additional history exists GFR 05/12/2024 11/13/2023, 10/14, 10/20/2023, Additional history exists Depression Screening 10/30/2024 10/31/2023 [...] this encounter Medical Devices Implanted Type Area Automatic Buffing Wheel Former Device Identifier Shelf Expiration Date Model / Serial / Lot Shaft Fibula 6cm [id number] - [id number] Implanted:Qty: 1 on 09/05/2008 [place] [facility] [place] Tissue - Human N/A: Spine Cervical MUSCULOSKELETAL TRANSPLANT FND 04/20/2010 [id number] / [id number] 0P / Stent Eso Gw 22x70 57851-246 - [id number] Implanted:Qty: 1 on 01/21/2008 [place] [facility] N/A: Esophagus AL[employer]US INC 04/12/2009 87008-547 / / [id number] Depuy Uniplate 32 Implanted:Qty: 1 on 09/05/2008 [...] Plate Zach 3 Level Ti 54mm - [id number] Implanted:Qty: 1 on 05/07/2010 [place] [facility] N/A: Neck JNJ : DEPUY SPINE [id number] / / Screw Zach Const St Ti 14mm - [id number] Implanted:Qty: 4 on 05/07/2010 [place] [facility] N/A: Neck JNJ : DEPUY SPINE [id number] 14 / / Screw 3.5x14 Mntr Fa [id number] - [id number] Implanted:Qty: 8 on 05/07/2010 at [place] [facility] N/A: Spine Cervical JNJ : ETHICON CARDIOVATIONS [id number] / / Jarrell [id number] - [id number] Implanted:Qty: 1 on 05/07/2010 at [place] [facility] N/A: Spine Cervical JNJ : ETHICON CARDIOVATIONS [id number] / / Screw Inner Mntr [id number] - [id number] Implanted:Qty: 8 on 05/07/2010 [place] [facility] N/A: Spine Cervical JNJ : ETHICON CARDIOVATIONS [id number] / / Envista Intraocular Lens Implanted:Qty: 1 on 03/10/2022 by Liang Marshall MD at OR [facility] Right: Eye BAUSCH & LOMB 08/13/2023 [id number] / [id number] / [id number] Envista Intraocular Lens Implanted:Qty: 1 on 03/24/2022 by Liang Marshall MD at OR [facility] Left: Eye BAUSCH & LOMB 07/13/2024 [id number] / [id number] / [id number] documented as of this encounter Procedures Procedure Name Priority Date/Time Associated Diagnosis Comments PT INR Routine 11/20/2023 1:39 PM EDT Chronic atrial fibrillation (HCC) documented in this encounter Results * (ABNORMAL) PT INR (11/20/2023 1:39 PM EDT) Prothrombin Time 20.1(H) 11.6 - 15.2 seconds 11/20/2023 2:15 PM EDT [facility] 56- INR 1.7(H) 0.8 - 1.2 11/20/2023 2:15 PM EDT [facility] 56- Blood Venous blood specimen / Unknown Venipuncture / Unknown 11/20/2023 1:39 PM EDT 11/20/2023 1:39 PM EDT Narrative [facility] 56-02 - 11/20/2023 2:15 PM EDT Warfarin Therapy INR: 2.0-3.0 conventional anticoagulation INR: 2.5-3.5 high intensity anticoagulation Sofie Danielle [facility] LAB BLOOD ORDERAB LES [facility] [address]- [address] [place], [place] [phone] documented in this encounter Visit Diagnoses Diagnosis Chronic atrial fibrillation (HCC) Atrial fibrillation JORGE (acute kidney injury) (HCC) Acute kidney failure, unspecified Stage 4 chronic kidney disease (HCC) Other hypervolemia documented in this encounter Advance Directives Documents on File Type Date Recorded 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 No Care Teams Merchandise Manager Relationship Specialty Start Date End Date Jocelyne Desai DO [address] [place] [address] [place] [address] PCP - General Internal Medicine 11/09/16 documented as of this encounter
--- OUTSIDE RECORDS SUMMARY | 2024-01-29 17:54 | External Medical Summary | Summary of Care ---
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 Procedures NC INJ RETACRIT NON-ESRD USE Monse Coates MD [address] [facility] [place] [address] Anc Hem/Onc [facility] Kayley [address] [place] [phone] Referral ID Status Reason Start Date Expiration Date V isits Requested Visits Authorized [id number] Authorized 11/13/2023 11/12/2024 999 [id number] Encounter Details Date Type Department Care Team (Late st Contact Info) Description 11/20/2023 1:30 PM EDT Immunization/I njection Hematology/Oncology Treatment, [address] [phone] Kayley, Chair 7 Hem On[address] [address] Anemia due to stage 4 chronic kidney [...] connectivity [facility] for wound care [phone] Televideo if needed. 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.] Anticoagulation Centralized Clinical Pharmacy Services, Ilya Lafleur [address] [place] [address] [place] [address] [facility], [address] [place] [address] 11/27/2023 10:00 AM EDT Laboratory Laboratory [facility] Kayley [place] [address] [place] [phone] Kayley, Lab [address] [place] [address] 11/27/2023 10:30 AM EDT Immunization/Injection Hematology/Oncology Treatment, [place] [address] [place] [phone] Kayley, Chair 7 Hem Onc [address] [address] [place] [address] 11/30/2023 12:40 PM EDT Office Visit Nephrology [address] [place] [address] Jennifer Agustin MD [address] [place] [address] 12/04/2023 9:40 AM EDT Laboratory Laboratory [facility] [place] [address] [place] [phone] Kayley, Lab [facility] 200 [facility] [place] [address] 12/04/2023 10:00 AM EDT Office Visit Hematology/Oncology [facility] [place] [address] [place] [phone] Monse Coates MD [address] [place] [phone] 12/04/2023 10:30 AM EDT Immunization/Injection Hematology/Oncology Treatment, [place] [address] [place] [phone] Kayley, Chair 7 Hem Onc [address] [place] [address] 12/27/2023 1:10 PM EST Office Visit Vascular [facility], [facility] [address] [facility] [place] [address] Kaiden Woodall MD [address] [place] [address] 01/19/2024 9:00 AM EST Office Visit Gastroenterology [address] [place] [address] oMon Avila CRNP [address] [place] [address] 02/20/2024 12:30 PM EST Nurse Only Ancillary [address] [place] [address] [place], Nurse [facility] [address] [place] [address] [place] [address] 03/08/2024 2:30 PM EST Office Visit Family Medicine [address] [place] [phone] Jocelyne Desai, [address] [place] [address] Scheduled Procedures Name Priority Associated Diagnoses Date/Ti [...] this encounter Medical Devices Implanted Type Area Market Reporter Device Identifier Shelf Expiration Date Model / Serial / Lot Shaft Fibula 6cm [id number] - [id number] Implanted:Qty: 1 on 09/05/2008 at OR [facility] Tissue - Human N/A: Spine Cervical MUSCULOSKELETAL TRANSPLANT FND 04/20/2010 [id number] / [id number] 0P / Stent Eso Gw 22x70 [id number] - [id number] Implanted:Qty: 1 on 01/21/2008 at OR [facility] N/A: Esophagus [employer] INC 04/12/2009 40495-068 / / [id number] Depuy Uniplate 32 Implanted:Qty: 1 on 09/05/2008 at OR [facility] N/A: Spine Cervical TAMMY [employer] TAMMY DEPUY 1897-02-302 / / Depuy Uniplate Screw 14mm Implanted:Qty: 2 on 09/05/2008 at OR [facility] N/A: Spine Cervical TAMMY & TAMMY DEPUY 1897-06-017 / / Depuy Lordotic Bengal Cage Implanted:Qty: 1 on 05/07/2010 at OR [facility] N/A: Neck 1773-06-146 / 1773-06-146 / Plate Zach 3 Level Ti 54mm - [id number] Implanted:Qty: 1 on 05/07/2010 at OR [facility] N/A: Neck JNJ : DEPUY SPINE [id number] / / Screw Zach Const St Ti 14mm - [id number] Implanted:Qty: 4 on 05/07/2010 at OR [facility] N/A: Neck JNJ : DEPUY SPINE [id number] 14 / / Screw 3.5x14 Mntr Fa [id number] - [id number] Implanted:Qty: 8 on 05/07/2010 at OR [facility] N/A: Spine Cervical JNJ : ETHICON CARDIOVATIONS [id number] / / Jarrell [id number] - [id number] Implanted:Qty: 1 on 05/07/2010 at OR [facility] N/A: Spine Cervical JNJ : ETHICON CARDIOVATIONS [id number] / / Screw Inner Mntr [id number] - [id number] Implanted:Qty: 8 on 05/07/2010 at OR [facility] N/A: Spine Cervical JNJ : ETHICON CARDIOVATIONS [id number] / / Envista Intraocular Lens Implanted:Qty: 1 on 03/10/2022 by Liang Marshall MD at OR [facility] Right: Eye BAUSCH & LOMB 08/13/2023 [id number] / [id number] / [id number] Envista Intraocular Lens Implanted:Qty: 1 on 03/24/2022 by Liang Marshall MD at OR [facility] Left: Eye BAUSCH & LOMB 07/13/2024 [id number] / [id number] / [id number] documented as of this encounter Visit Diagnoses Diagnosis 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)- Primary Iron deficiency anemia due to chronic blood loss Iron deficiency anemia secondary to blood loss (chronic) documented in this encounter Administered Medications Inactive Administered Medications - up to 3 most recent administrations Medication Order MAR Action Action Date Dose Rate Site Epoetin Sam-epbx (Retacrit) 07572 UNIT/ML inj 10,000 Units 10,000 Units, Subcutaneous, ONCE, On 11/20/23 at 1515, For 1 dose Given 11/20/2023 3:45 PM EDT 10,000 Units Arm Right Upper documented in this encounter Advance Directives Documents on File Type Date Recorded Patient Surg Rn Expl anation POL 01/26/2021 [place] OR [facility] [...] Power of Attor andrew? No Care Teams Ropeman Relationship Specialty Start Date End Date Jocelyne Desai DO [address] [place] [address] [place] [address] PCP - General Internal Medicine 11/09/16 documented as of this encounter
--- OUTSIDE RECORDS SUMMARY | 2024-01-29 17:54 | External Medical Summary | Summary of Care ---
Author Name Unknown Organization [facility] [address] [facility] [address] Phone [phone] Care Team Providers Care Manager Pharmacy Name Role Phone Jocelyne Desai DO Primary Care Provider [phone] Reason for Visit * Reason Onset Date Comments Durable Medical Equipment 11/21/2023 Encounter Details Date Type Department Care Team (Late st Contact Info) Description 11/21/2023 Telephone Nephrology, Cely [place] [address] [facility] [place] [address] Jennifer Agustin MD [address] [place] [address] Durable Medical Equipment Allergies No known active allergiesdocumented as of [...] Good connectivity [facility] for wound care [phone] Televideo if needed. Problem Noted Date Diagnosed [...] ICD-10 update of inactive term PLATT RESEARCH OTHER*[id number] 02/20/2007 ADVANCE DIRECTIVE INFORMATION 01/19/2005 Overview: Yes, [...] 11/17/19 23 LUMBAGO 12/24/2002 05/09/2007 LOC PRIM [id number] 12/24/200208/13 DEGENERATIVE SKIN DISORD 12/24/2002 VERTEBRAL FX [...] Telephone Encounter - Libby Hurd RN - 11/21/2023 9:23 AM EDT Order placed through [facility]. Spoke with Madai at [facility]. Will send records of bp/HR readings and aware to fax them every 2 weeks. * Telephone Encounter - Libby Hurd RN - 11/21/2023 9:22 AM EDT ----- Message from Jennifer Agustin MD sent at 11/20/2023 3:15 PM EDT ----- [facility] > get bp readings/HR so far; then get it every 2 wks thereafter [facility] for upper arm cuff; regular adult size documented in this encounter Plan of Treatment Upcoming Encounters Date Type Department Care Team (Late st Contact Info) Description 11/27/2023 10:00 AM EDT Laboratory Laboratory [facility] Kayley [place] [address] [place] [phone] Kayley Lab [facility] [address] [place] [address] 11/27/2023 10:30 AM EDT Immunization/Injecti on Hematology/Oncology Treatment, [place] [address] [place] [phone] Kayley, Chair 7 Hem Onc [place] [address] [place] [address] 11/30/2023 1:00 PM EDT Office Visit Nephrology [address] [place] [address] Jennifer Agustin MD [address] [place] [address] 12/04/2023 9:40 AM EDT Laboratory Laboratory [facility] Kayley [place] [address] [place] [phone] Kayley Lab [address] [place] [address] 12/04/2023 10:00 AM EDT Office Visit Hematology/Oncology [facility] Kayley [place] [address] [place] [phone] Monse Coates MD [address] [facility] [place] [phone] 12/04/2023 10:30 AM EDT Immunization/Injecti on Hematology/Oncology Treatment, [place] [address] [facility] [phone] [place], Chair 7 [address] On[address] [facility] [address] [facility] [place] [address] 12/27/2023 1:10 PM EST Office Visit Vascular Surgery, [facility] [address] [place] [address] Kaiden Woodall MD [address] [place] [address] 01/19/2024 9:00 AM EST Office Visit Gastroenterology [address] [place] [address] Moon Avila CRNP [address] [place] [address] 02/20/2024 12:30 PM EST Nurse Only Ancillary [address] [place] [address] [place], Nurse [address] [place] [address] 03/08/2024 2:30 PM EST Office Visit Family Medicine [address] [place] [phone] Jocelyne Desai, [address] [place] [address] Scheduled Procedures Name Priority Associated Diagnoses Date/Ti [...] this encounter Medical Devices Implanted Type Area Control Officer Device Identifier Shelf Expiration Date Model / Serial / Lot Shaft Fibula 6cm [id number] - [id number] Implanted:Qty: 1 on 09/05/2008 at [place] [facility] Tissue - Human N/A: Spine Cervical MUSCULOSKELETAL TRANSPLANT FND 04/20/2010 [id number] / [id number] 0P / Stent Eso Gw 22x70 75561-018 - [id number] Implanted:Qty: 1 on 01/21/2008 at OR [facility] N/A: Esophagus [employer]US INC 04/12/2009 87216-520 / / [id number] Depuy Uniplate 32 Implanted:Qty: 1 on 09/05/2008 [...] Plate Zach 3 Level Ti 54mm - [id number] Implanted:Qty: 1 on 05/07/2010 at OR [facility] N/A: Neck JNJ : DEPUY SPINE [id number] 54 / / Screw Zach Const St Ti 14mm - [id number] Implanted:Qty: 4 on 05/07/2010 at OR [facility] N/A: Neck JNJ : DEPUY SPINE [id number] 14 / / Screw 3.5x14 Mntr Fa [id number] - [id number] Implanted:Qty: 8 on 05/07/2010 at OR [facility] N/A: Spine Cervical JNJ : ETHICON CARDIOVATIONS [id number] / / Jarrell [id number] - [id number] Implanted:Qty: 1 on 05/07/2010 at OR [facility] N/A: Spine Cervical JNJ : ETHICON CARDIOVATIONS [id number] / / Screw Inner Mntr [id number] - [id number] Implanted:Qty: 8 on 05/07/2010 at OR [facility] N/A: Spine Cervical JNJ : ETHICON CARDIOVATIONS [id number] / / Envista Intraocular Lens Implanted:Qty: 1 on 03/10/2022 by Liang Marshall MD at OR [facility] Right: Eye BAUSCH & LOMB 08/13/2023 [id number] / [id number] / [id number] Envista Intraocular Lens Implanted:Qty: 1 on 03/24/2022 by Liang Marshall MD at OR [facility] Left: Eye BAUSCH & LOMB 07/13/2024 [id number] / [id number] / [id number] documented as of this encounter Advance Directives Documents on File Type Date Recorded 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 No Care Teams Manager Pharmacy Relationship Specialty Start Date End Date Jocelyne Desai DO [address] [place] [address] [place] [address] PCP - General Internal Medicine 11/09/16 documented as of this encounter
--- OUTSIDE RECORDS SUMMARY | 2024-01-29 17:54 | External Medical Summary | Summary of Care ---
Author Name Unknown Organization [facility] Address [address] [place] [address] Phone [phone] Care Team Providers Care Telephone Order Supervisor Name Role Phone Jocelyne Desai Primary Care Provider [phone] Reason for Visit * Reason Onset Date Comments TRIAGE 11/21/2023 Encounter Details Date Type Department Care Team (Late st Contact Info) Description 11/21/2023 Telephone Vascular Surgery, [facility] 132 [facility] [place] [address] Kaiden Woodall MD [address] [place] [address] TRIAGE Allergies No known active allergiesdocumented as of this encounter (statuses as of 11/22/2023) Medications Medication Sig Dispensed Refills Start Date [...] as of this encounter (statuses as of 11/22/2023) Active Problems Patient Care Coordination No te Formatting of this note migh t be different from the original. Good connectivity [facility] for wound care [phone] Televideo if needed. Problem Noted Date Diagnosed [...] podiatry,. Letter in chart from [facility] podiatry they were unable to get [...] H/O gastric bypass 11/27/2018 Overview: RYGB intermediate frame tender current use of 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 1 [...] ICD-10 update of inactive term PLATT RESEARCH OTHER*[id number] 02/20/2007 ADVANCE DIRECTIVE INFORMATION 01/19/2005 Overview: Yes, Patient instructed to provide copy of advance directive for provider to review and to be scanned into Electronic Medical Record No, Advance Directive brochure given to patient at prior appointment. SPINAL STENOSIS-LUMBAR 09/23/2002 Vitamin D deficiency Cervical spinal stenosis documented as of this encounter (statuses as of 11/22/2023) Resolved Problems Problem Noted Date Diagnosed Date Resolved Date Chronic kidney disease (CKD) , stage IV (severe) 09/27/2023 10/26/2023 Depression, unspecified 11/09/202104/14 Depression, unspecified 11/09/202105/2022 Cellulitis of right leg 07/13/202105/2022 Last Assessment & Plan: Suspect this could be early/localized. Will treat with 7 days antibiotic. If pt cannot be reassess by Dr. Braxton office early next week will need [facility] provider recheck Multiple and open wound [...] 11/17/19 23 LUMBAGO 12/24/2002 05/09/2007 LOC PRIM [id number] 12/24/200208/13 DEGENERATIVE SKIN DISORD 12/24/2002 VERTEBRAL FX [...] as of this encounter (statuses as of 11/22/2023) Immunizations Name Administration Dates Next Due COVID-19 [...] encounter Miscellaneous Notes * Telephone Encounter - Briana Steward LPN [...] 11/27/2023 10:00 AM EDT Laboratory Laboratory [facility] [place] [address] [place] [phone] Kayley, Lab [address] [facility] [place] [address] 11/27/2023 10:30 AM EDT Immunization/Injection Hematology/Oncology Treatment, [place] [address] [place] [phone] Kayley, Chair 7 Hem Onc [facility] 200 [place] [address] 11/28/2023 6:30 AM EDT Anticoagulation Centralized Clinical Pharmacy Services, Ilya Lafleur [address] [place] [address] [place] [address] Ccps, [address] [place] [address] 11/30/2023 1:00 PM EDT Office Visit Nephrology [address] [place] [address] Jennifer Agustin MD [address] [place] [address] 12/04/2023 9:40 AM EDT Laboratory Laboratory [facility] [place] [address] [place] [phone] Kayley, Lab [address] [place] [address] 12/04/2023 10:00 AM EDT Office Visit Hematology/Oncology [facility] [place] [address] [place] [phone] Monse Coates MD [address] [place] [address] [place] [phone] 12/04/2023 10:30 AM EDT Immunization/Injection Hematology/Oncology Treatment, [place] [address] [place] [phone] Kayley, Chair 7 Hem Onc [facility] [address] [facility] [place] [address] 12/21/2023 2:00 PM EST Imaging Vascular Lab, [facility] [place] [address] 12/27/2023 1:10 PM EST Office Visit Vascular Surgery, [facility] [address] [place] [address] Kaiden Woodall MD [address] [place] [address] [place] [address] 01/19/2024 9:00 AM EST Office Visit Gastroenterology [address] [place] [address] Moon Avila CRNP [address] [place] [address] 02/20/2024 12:30 PM EST Nurse Only Ancillary [address] [place] [address] [place], Nurse Annual [address] [place] [address] 03/08/2024 2:30 PM EST Office Visit Family Medicine [address] [place] [phone] Jocelyne Desai, [address] [place] [address] Scheduled Orders Name Type Priority Associated Diagnoses [...] this encounter Medical Devices Implanted Type Area Follow Up Specialist Device Identifier Shelf Expiration Date Model / Serial / Lot Shaft Fibula 6cm [id number] - [id number] Implanted:Qty: 1 on 09/05/2008 at [place] [facility] Tissue - Human N/A: Spine Cervical MUSCULOSKELETAL TRANSPLANT FND 04/20/2010 [id number] / [id number] 0P / Stent Eso Gw 22x70 77994-585 - [id number] Implanted:Qty: 1 on 01/21/2008 at OR [facility] N/A: Esophagus ALVEOLUS INC 04/12/2009 87742-589 / / [id number] Depuy Uniplate 32 Implanted:Qty: 1 on 09/05/2008 [...] [facility] N/A: Neck 1773-06-146 / 1773-06-146 / Plate Zach 3 Level Ti 54mm - [id number] Implanted:Qty: 1 on 05/07/2010 at [place] [facility] N/A: Neck JNJ : DEPUY SPINE [id number] 54 / / Screw Zach Const St Ti 14mm - [id number] Implanted:Qty: 4 on 05/07/2010 at [place] [facility] N/A: Neck JNJ : DEPUY SPINE [id number] 14 / / Screw 3.5x14 Mntr Fa [id number] - [id number] Implanted:Qty: 8 on 05/07/2010 at [place] [facility] N/A: Spine Cervical JNJ : ETHICON CARDIOVATIONS [id number] / / Jarrell [id number] - [id number] Implanted:Qty: 1 on 05/07/2010 at [place] [facility] N/A: Spine Cervical JNJ : ETHICON CARDIOVATIONS [id number] / / Screw Inner Mntr [id number] - [id number] Implanted:Qty: 8 on 05/07/2010 at [place] [facility] N/A: Spine Cervical JNJ : ETHICON CARDIOVATIONS [id number] / / Envista Intraocular Lens Implanted:Qty: 1 on 03/10/2022 by Liang Marshall MD at OR [facility] Right: Eye BAUSCH & LOMB 08/13/2023 [id number] / [id number] / [id number] Envista Intraocular Lens Implanted:Qty: 1 on 03/24/2022 by Liang Marshall MD at OR [facility] Left: Eye BAUSCH & LOMB 07/13/2024 [id number] / [id number] / [id number] documented as of this encounter Visit Diagnoses Diagnosis ESRD (end stage renal disease) (HCC)- Primary End stage renal disease documented in this encounter Advance Directives Documents on File Type Date Recorded Patient Handbook Writer Expl anation POL 01/26/2021 [place] OR [facility] FOR LIFE-SUSTAINING TREATMENT [...] of Attor andrew? No Care Teams Telephone Order Supervisor Relationship Specialty Start Date End Date Jocelyne Desai DO [address] [place] [address] [place] [address] PCP - General Internal Medicine 11/09/16 documented as of this encounter
--- OUTSIDE RECORDS SUMMARY | 2024-01-29 17:55 | External Medical Summary | Summary of Care ---
Author Name Unknown Organization [facility] Address [address] [facility] [place] [address] Phone [phone] Care Team Providers Care Supervisor Final Name Role Phone DesaiJocelyne victor Primary Care Provider + [phone] Reason for Visit * Reason Comments Outpatient Testing Encounter Details Date Type Department Care Team (Late st Contact Info) Description 11/20/2023 1:40 PM EDT Laboratory Laboratory [facility] [place] [address] [place] [phone] [facility] [address] [place] [address] Chronic atrial fibrillation (HCC) Allergies No known [...] morning and 1 Tablet before bedtime. Active Torsemide 20 MG Oral Tablet (Demadex) Take 1 Tablet by mouth in the morning. 100 Tablet 1 11/01/2023 Active Potassium Chloride Candi ER 20 MEQ Oral Tablet Extended Release Take 1 Tablet by mouth in the morning. 100 Tablet 1 11/01/2023 Active documented as of this encounter (statuses as of 11/20/2023) Active Problems Patient Care Coordination No te Formatting of this note migh t be different from the original. Good connectivity [facility] for wound care [phone] Televideo if needed. Problem Noted Date Diagnosed [...] ICD-10 update of inactive term PLATT RESEARCH OTHER*[id number] 02/20/2007 ADVANCE DIRECTIVE INFORMATION 01/19/2005 Overview: Yes, [...] stage IV (severe) 09/27/2023 10/26/2023 Depression, unspecified 11/09/2021/ Depression, unspecified 11/09/202105/2022 Cellulitis of right leg 07/13/202105/2022 Last Assessment & Plan: Suspect this could be early/localized. Will treat with 7 days antibiotic. If pt cannot be reassess by Dr. Braxton office early next week will need [facility] provider recheck Multiple and open [...] 11/17/19 23 LUMBAGO 12/24/2002 05/09/2007 LOC PRIM [id number] 12/24/200208/13 DEGENERATIVE SKIN DISORD 12/24/2002 VERTEBRAL FX [...] Info) Description 11/21/2023 6:15 AM EDT Anticoagulation [facility] Clinical Pharmacy Services, Ilya Lafleur [address] [place] [address] [place] [address] [place] [address] 11/30/2023 12:40 PM EDT Office Visit Nephrology [address] [place] [address] Jennifer Agustin MD [address] [place] [address] 01/19/2024 9:00 AM EST Office Visit Gastroenterology [address] [place] [address] Moon Avila CRNP [address] [place] [address] 02/20/2024 12:30 PM EST Nurse Only Ancillary [address] [place] [address] [place], Nurse [address] [place] [address] 03/08/2024 2:30 PM EST Office Visit Family Medicine [address] [place] [phone] [place] [address] Pending Results Name Type Priority Associated Diagnoses Date /Time PT INR Lab Routine Chronic atrial fibrillation (HCC) 11/20/2023 1:39 PM EDT Scheduled Procedures Name Priority Associated [...] 08/23/2023, 1005/2022, 11/09/2022, Additional history exists GFR 05/12/2024 11/13/2023, [...] this encounter Medical Devices Implanted Type Area Hydraulic Oil Tool Operator Device Identifier Shelf Expiration Date Model / Serial / Lot Shaft Fibula 6cm [id number] - [id number] Implanted:Qty: 1 on 09/05/2008 [place] [facility] [place] - Human N/A: Spine Cervical MUSCULOSKELETAL TRANSPLANT FND 04/20/2010 [id number] / [id number] 0P / Stent Eso Gw 22x70 [id number] - [id number] Implanted:Qty: 1 on 01/21/2008 [place] [facility] N/A: Esophagus [employer] 04/12/2009 [id number] / / [id number] Depuy Uniplate 32 Implanted:Qty: 1 on 09/05/2008 [place] [facility] N/A: Spine Cervical TAMMY & TAMMY DEPUY 1897-02-302 / / Depuy Uniplate Screw 14mm Implanted:Qty: 2 on 09/05/2008 [place] [facility] N/A: Spine Cervical TAMMY & TAMMY DEPUY 1897-06-017 / / Depuy Lordotic Bengal Cage Implanted:Qty: 1 on 05/07/2010 at [place] [facility] N/A: Neck 1773-06-146 / [id number] / Plate Zach 3 Level Ti 54mm - [id number] Implanted:Qty: 1 on 05/07/2010 [place] [facility] N/A: Neck JNJ : DEPUY SPINE [id number] / / Screw Zach Const St Ti 14mm - [id number] Implanted:Qty: 4 on 05/07/2010 [place] [facility] N/A: Neck JNJ : DEPUY SPINE [id number] / / Screw 3.5x14 Mntr Fa [id number] - [id number] Implanted:Qty: 8 on 05/07/2010 [place] [facility] N/A: Spine Cervical JNJ : ETHICON [employer]IOVATIONS [id number] / / Jarrell [id number] - [id number] Implanted:Qty: 1 on 05/07/2010 [place] [facility] N/A: Spine Cervical JNJ : ETHICON CARDIOVATIONS [id number] / / Screw Inner Mntr [id number] - [id number] Implanted:Qty: 8 on 05/07/2010 [place] [facility] N/A: Spine Cervical JNJ : ETHICON CARDIOVATIONS [id number] / / Envista Intraocular Lens Implanted:Qty: 1 on 03/10/2022 by Liang Marshall MD at [facility] Right: Eye BAUSCH & LOMB 08/13/2023 [id number] / [id number] / [id number] Envista Intraocular Lens Implanted:Qty: 1 on 03/24/2022 by Liang Marshall MD at OR [facility] Left: Eye BAUSCH & LOMB 07/13/2024 [id number] / [id number] / [id number] documented as of this encounter Visit Diagnoses Diagnosis Chronic atrial fibrillation (HCC) Atrial fibrillation documented in this encounter Advance Directives Documents on File Type Date Recorded Patient Waterproofing Supervisor Torres ARREOLA 01/26/2021 [place] [facility] FOR [facility]-SUSTAINING [...] of Attor andrew? No Care Teams Supervisor Final Relationship Specialty Start Date End Date Jocelyne Desai DO [address] [place] [address] [place] [address] PCP - General Internal Medicine 11/09/16 documented as of this encounter
--- OUTSIDE RECORDS SUMMARY | 2024-01-29 17:55 | External Medical Summary | Summary of Care ---
Author Name Unknown Organization [facility] Address [address] [facility] [place] [address] Phone [phone] Care Team Providers Care Technology Auditor Name Role Phone DesaiJocelyne victor Primary Care Provider + [phone] Reason for Visit * Reason Comments Outpatient Testing Encounter Details Date Type Department Care Team (Late st Contact Info) Description 11/20/2023 1:40 PM EDT Laboratory Laboratory [facility] [place] [address] [place] [phone] [facility] [address] [place] [address] Chronic atrial fibrillation (HCC) Allergies No known [...] connectivity [facility] for wound care [phone] Televideo if needed. Problem Noted Date Diagnosed [...] podiatry,. Letter in chart from [facility] podiatry they were unable to get [...] ICD-10 update of inactive term PLATT RESEARCH OTHER*[id number] 02/20/2007 ADVANCE DIRECTIVE INFORMATION 01/19/2005 Overview: Yes, [...] 11/17/19 23 LUMBAGO 12/24/2002 05/09/2007 LOC PRIM [id number] 12/24/200208/13 DEGENERATIVE SKIN DISORD 12/24/2002 VERTEBRAL FX [...] Info) Description 11/21/2023 6:15 AM EDT Anticoagulation [facility] Clinical Pharmacy Services, Ilya Lafleur [address] [place] [address] [place] [address] [place] [address] 11/30/2023 12:40 PM EDT Office Visit Nephrology [address] [place] [address] Jennifer Agustin MD [address] [place] [address] 01/19/2024 9:00 AM EST Office Visit Gastroenterology [address] [place] [address] Moon Avila CRNP [address] [place] [address] 02/20/2024 12:30 PM EST Nurse Only Ancillary [address] [place] [address] [place], Nurse [address] [place] [address] 03/08/2024 2:30 PM EST Office Visit Family Medicine [address] [place] [phone] [address] [place] [address] Scheduled Procedures Name Priority Associated Diagnoses Date/Ti [...] encounter Medical Devices Implanted Type Area Consultant Technology Device Identifier Shelf Expiration Date Model / Serial / Lot Shaft Fibula 6cm [id number] - [id number] Implanted:Qty: 1 on 09/05/2008 at [place] [facility] Tissue - Human N/A: Spine Cervical MUSCULOSKELETAL TRANSPLANT FND 04/20/2010 [id number] / [id number] 0P / Stent Eso Gw 22x70 62143-843 - [id number] Implanted:Qty: 1 on 01/21/2008 at [place] [facility] N/A: Esophagus [employer] 04/12/2009 09452-211 / / [id number] Depuy Uniplate 32 Implanted:Qty: 1 on 09/05/2008 at [place] [facility] N/A: Spine Cervical TAMMY & TAMMY DEPUY 1897--302 / / Depuy Uniplate Screw 14mm Implanted:Qty: 2 on 09/05/2008 at [place] [facility] N/A: Spine Cervical TAMMY & TAMMY DEPUY 1897-06-017 / / Depuy Lordotic Bengal Cage Implanted:Qty: 1 on 05/07/2010 at [place] [facility] N/A: Neck 1773--146 / [id number] / Plate Zach 3 Level Ti 54mm - [id number] Implanted:Qty: 1 on 05/07/2010 at [place] [facility] N/A: Neck JNJ : DEPUY SPINE [id number] 54 / / Screw Zach Const St Ti 14mm - [id number] Implanted:Qty: 4 on 05/07/2010 at [place] [facility] N/A: Neck JNJ : DEPUY SPINE [id number] 14 / / Screw 3.5x14 Mntr Fa [id number] - [id number] Implanted:Qty: 8 on 05/07/2010 at [place] [facility] N/A: Spine Cervical JNJ : ETHICON CARDIOVATIONS [id number] / / Jarrell [id number] - [id number] Implanted:Qty: 1 on 05/07/2010 at [place] [facility] N/A: Spine Cervical JNJ : ETHICON CARDIOVATIONS [id number] / / Screw Inner Mntr [id number] - [id number] Implanted:Qty: 8 on 05/07/2010 at [place] [facility] N/A: Spine Cervical JNJ : ETHICON CARDIOVATIONS [id number] / / Envista Intraocular Lens Implanted:Qty: 1 on 03/10/2022 by Liang Marshall MD at [place] [facility] Right: Eye BAUSCH & LOMB 08/13/2023 [id number] / [id number] / [id number] Envista Intraocular Lens Implanted:Qty: 1 on 03/24/2022 by Liang Marshall MD at OR [facility] Left: Eye BAUSCH & LOMB 07/13/2024 [id number] / [id number] / [id number] documented as of this encounter Procedures Procedure Name Priority Date/Time Associated Diagnosis Comments PT INR Routine 11/20/2023 1:39 PM EDT Chronic atrial fibrillation (HCC) documented in this encounter Results * (ABNORMAL) PT INR (11/20/2023 1:39 PM EDT) Prothrombin Time 20.1(H) 11.6 - 15.2 seconds 11/20/2023 2:15 PM EDT [facility] 56-02 INR 1.7(H) 0.8 - 1.2 11/20/2023 2:15 PM EDT [facility] 56- Blood Venous blood specimen / Unknown Venipuncture / Unknown 11/20/2023 1:39 PM EDT 11/20/2023 1:39 PM EDT Narrative [facility] 56-02 - 11/20/2023 2:15 PM EDT Warfarin Therapy INR: 2.0-3.0 conventional anticoagulation INR: 2.5-3.5 high intensity anticoagulation Sofie Danielle [facility] LAB BLOOD ORDERAB LES [facility] [address] [place] [address] documented in this encounter Visit Diagnoses Diagnosis Chronic atrial fibrillation (HCC) Atrial fibrillation documented in this encounter Advance Directives Documents on File Type Date Recorded Patient Pricing Director Expl anation POLST 01/26/2021 [place] OR [facility] FOR LIFE-SUSTAINING [...] Power of Attor andrew? No Care Teams Technology Auditor Relationship Specialty Start Date End Date Jocelyne Desai DO [address] [place] [address] [place] [address] PCP - General Internal Medicine 11/09/16 documented as of this encounter
--- OUTSIDE RECORDS SUMMARY | 2024-01-29 17:55 | External Medical Summary | Summary of Care ---
Author Name Unknown Organization [facility] Address [address] [facility] [place] [address] Phone [phone] Care Team Providers Care Manager Marketing Sales Name Role Phone Desai Jocelyne Briggs Primary Care Provider + [phone] Reason for Visit * Reason Comments Outpatient Testing Encounter Details Date Type Department Care Team (Late st Contact Info) Description 11/20/2023 1:40 PM EDT Laboratory Laboratory [facility] [address] [place] [phone] [facility] [address] [place] [address] Chronic atrial fibrillation (HCC) Allergies No known [...] the morning. 100 Tablet 1 11/01/2023 Active Midodrine HCl 2.5 MG Oral Tablet (Proamatine) Take 1 Tablet by mouth in the morning and 1 Tablet at noon and 1 Tablet in the evening. 90 Tablet 2 07/25/2023 Discontinued documented as of this encounter (statuses as of 11/20/2023) Active Problems Patient Care Coordination No te Formatting of this note migh t be different from the original. Good connectivity [facility] for wound care [phone] Televideo if needed. Problem Noted Date Diagnosed [...] up with podiatry,. Letter in chart from [facility] podiatry they were unable [...] ICD-10 update of inactive term PLATT RESEARCH OTHER*[id number] 02/20/2007 ADVANCE DIRECTIVE INFORMATION 01/19/2005 Overview: Yes, [...] office early next week will need [facility] provider recheck Multiple and open [...] 11/17/19 23 LUMBAGO 12/24/2002 05/09/2007 LOC PRIM [id number] 12/24/200208/13 DEGENERATIVE SKIN DISORD 12/24/2002 VERTEBRAL FX [...] Centralized Clinical Pharmacy Services, Ilya Lafleur [address] [place] [address] [place] [address] [place] [address] 11/30/2023 12:40 PM EDT Office Visit Nephrology [address] [place] [address] Jennifer Agustin MD [address] [facility] [place] [address] 01/19/2024 9:00 AM EST Office Visit Gastroenterology [address] [place] [address] Moon Avila CRNP [address] [place] [address] 02/20/2024 12:30 PM EST Nurse Only Ancillary [address] [place] [address] [place], Nurse [address] [place] [address] 03/08/2024 2:30 PM EST Office Visit Family Medicine [address] [place] [phone] [address] [place] [address] Scheduled Procedures Name Priority Associated Diagnoses Date/Ti [...] this encounter Medical Devices Implanted Type Area Wet Machine Tender Device Identifier Shelf Expiration Date Model / Serial / Lot Shaft Fibula 6cm [id number] - [id number] Implanted:Qty: 1 on 09/05/2008 at [place] [facility] Tissue - Human N/A: Spine Cervical MUSCULOSKELETAL TRANSPLANT FND 04/20/2010 [id number] / [id number] 0P / Stent Eso Gw 22x70 81428-139 - [id number] Implanted:Qty: 1 on 01/21/2008 at OR [facility] N/A: Esophagus [employer]US INC 04/12/2009 92043-740 / / [id number] Depuy Uniplate 32 Implanted:Qty: 1 on 09/05/2008 [...] [facility] [place] N/A: Neck 1773-06-146 / [id number] / Plate Zach 3 Level Ti 54mm - [id number] Implanted:Qty: 1 on 05/07/2010 at OR [facility] N/A: Neck JNJ : DEPUY SPINE [id number] 54 / / Screw Zach Const St Ti 14mm - [id number] Implanted:Qty: 4 on 05/07/2010 at [place] [facility] N/A: Neck JNJ : DEPUY SPINE [id number] 14 / / Screw 3.5x14 Mntr Fa [id number] - [id number] Implanted:Qty: 8 on 05/07/2010 at [place] [facility] N/A: Spine Cervical JNJ : ETHICON CARDIOVATIONS [id number] / / Jarrell [id number] - [id number] Implanted:Qty: 1 on 05/07/2010 at [place] [facility] N/A: Spine Cervical JNJ : ETHICON CARDIOVATIONS [id number] / / Screw Inner Mntr [id number] - [id number] Implanted:Qty: 8 on 05/07/2010 at [place] [facility] N/A: Spine Cervical JNJ : ETHICON CARDIOVATIONS [id number] / / Envista Intraocular Lens Implanted:Qty: 1 on 03/10/2022 by Liang Marshlal MD at OR [facility] Right: Eye BAUSCH & LOMB 08/13/2023 [id number] / [id number] / [id number] Envista Intraocular Lens Implanted:Qty: 1 on 03/24/2022 by Liang Marshall MD at OR [facility] Left: Eye BAUSCH & LOMB 07/13/2024 [id number] / [id number] / [id number] documented as of this encounter Procedures Procedure Name Priority Date/Time Associated Diagnosis Comments PT INR Routine 11/20/2023 1:39 PM EDT Chronic atrial fibrillation (HCC) documented in this encounter Results * (ABNORMAL) PT INR (11/20/2023 1:39 PM EDT) Prothrombin Time 20.1(H) 11.6 - 15.2 seconds 11/20/2023 2:15 PM EDT [facility] 56-02 INR 1.7(H) 0.8 - 1.2 11/20/2023 2:15 PM EDT [facility] 56-02 Blood Venous blood specimen / Unknown Venipuncture / Unknown 11/20/2023 1:39 PM EDT 11/20/2023 1:39 PM EDT Narrative [facility] 56-02 - 11/20/2023 2:15 PM EDT Warfarin Therapy INR: 2.0-3.0 conventional anticoagulation INR: 2.5-3.5 high intensity anticoagulation Sofie Danielle [facility] LAB BLOOD ORDERAB LES [facility] [address] [place] [address] documented in this encounter Visit Diagnoses Diagnosis Chronic atrial fibrillation (HCC) Atrial fibrillation documented in this encounter Advance Directives Documents on File Type Date Recorded Patient Munitions Worker Expl anation POLST 01/26/2021 [place] OR [facility] FOR LIFE-SUSTAINING TREATMENT * No [...] of Attor andrew? No Care Teams Manager Marketing Sales Relationship Specialty Start Date End Date Jocelyne Desai DO [address] [place] [address] [place] [address] PCP - General Internal Medicine 11/09/16 documented as of this encounter
--- OUTSIDE RECORDS SUMMARY | 2024-01-29 17:56 | External Medical Summary | Summary of Care ---
Author Name Unknown Organization [facility] [address] [facility] [address] Phone [phone] Care Team Providers Care Secy Name Role Phone Jocelyne Desai Primary Care Provider + [phone] Reason for Visit * Reason Onset Date Comments Medication Pre-auth 11/13/2023 Retacrit Encounter Details Date Type Department Care Team (Late st Contact Info) Description 11/13/2023 Telephone Hematology/Oncology Treatment, [place] [address] [place] [address] Monse Coates MD [address] [place] [phone] Medication Pre-auth (Retacrit) Allergies No known active allergiesdocumented as of this encounter (statuses as of 11/14/2023) Medications Medication Sig Dispensed Refills Start Date [...] as of this encounter (statuses as of 11/14/2023) Active Problems Patient Care Coordination No te Formatting of this note migh t be different from the original. Good connectivity [facility] for wound care [phone] Televideo if needed. Problem Noted Date Diagnosed [...] podiatry,. Letter in chart from [facility] podiatry they were unable to get [...] ICD-10 update of inactive term PLATT RESEARCH OTHER*[id number] 02/20/2007 ADVANCE DIRECTIVE INFORMATION 01/19/2005 Overview: Yes, Patient instructed to provide copy of advance directive for provider to review and to be scanned into Electronic Medical Record No, Advance Directive brochure given to patient at prior appointment. SPINAL STENOSIS-LUMBAR 09/23/2002 Vitamin D deficiency Cervical spinal stenosis documented as of this encounter (statuses as of 11/14/2023) Resolved Problems Problem Noted Date Diagnosed Date [...] 11/17/19 23 LUMBAGO 12/24/2002 05/09/2007 LOC PRIM [id number] 12/24/200208/13 DEGENERATIVE SKIN DISORD 12/24/2002 VERTEBRAL FX [...] as of this encounter (statuses as of 11/14/2023) Immunizations Name Administration Dates Next Due COVID-19 [...] encounter Miscellaneous Notes * Telephone Encounter - Halie Stinson LPN - 11/14/2023 3:33 PM EDT SpiBeverly lombardi OSA P [facility] Hem/Onc Nurse Pool/Class; [facility] [place] Hem/Onc SchedulingPool/Class Called and spoke with patient regarding Retacrit OOP. He does have 20% coinsurance of $213.92 but he did just receive an application for [employer] Financial Assistance and is filling it out and applying. If approved would have no OOP. Will make office aware once received and approved. * Telephone Encounter - Halie Stinson LPN - 11/14/2023 3:32 PM EDT 11/14/2023 3:29 PM Beverly English OSA Retacrit - Note: Date of Services: not yet schedule Facility: [facility] Hem/Onc SP Estimate of Services for the following CPT(s): Q5106 Retacrit Estimated Out of Pocket: $213.92 (20% coinsurance) Contacted patient: Yes Does patient want to be scheduled? (Y/N) No, hold off for FA Financial Assistance Requested? (Y/N) No Financial Assistance Application provided? (Y/N) Pt received application that [place] mailed last month. As soon as he gets it filled out he will return. So essentially as long as he qualifies no OOP * Telephone Encounter - Josafat Jeffers RN - 11/13/2023 2:56 PM EDT Referral entered, awaiting MAC review. * Telephone Encounter - Chante Tee RN - 11/13/2023 11:24 AM EDT BMP, ferritin, iron screen, B12, folic acid drawn 11/01/23. Patient has appt with Dr Wiseman 11/19- would like him to receive retacrit after appt if agreeable. * Telephone Encounter - Halie Stinson LPN - 11/13/2023 11:01 AM EDT Order received for Epoetin [place] plan built and routed to provider Awaiting prior authorization before scheduling patient. Lab orders placed. documented in this encounter Plan of Treatment Upcoming Encounters Date Type Department Care Team (Late st Contact Info) Description 11/20/2023 6:30 AM EDT Anticoagulation Centralized Clinical Pharmacy Services, Ilya Lafleur [address] [place] [address] [place] [address] [facility], [address] [place] [address] 11/20/2023 1:00 PM EDT Office [facility] [place] [phone] Monse Coates MD [address] [facility] [place] [phone] 11/20/2023 2:00 PM EDT Office Visit Nephrology, [facility] 200 [facility] [place] [address] Jennifer Agustin MD 200 [facility] [place] [address] 11/30/2023 12:40 PM EDT Office Visit Nephrology [address] [place] [address] Jennifer Agustin MD 200 [facility] [place] [address] 01/19/2024 9:00 AM EST Office Visit Gastroenterology [address] [place] [address] Moon Avila CRNP [address] [place] [address] 02/20/2024 12:30 PM EST Nurse Only Ancillary [address] [place] [address] [place], Nurse [address] [place] [address] 03/08/2024 2:30 PM EST Office Visit Family Medicine [address] [place] [address] [address] [place] [address] Scheduled Orders Name Type Priority Associated Diagnoses Orde r Schedule CBC WITH WBC DIFFERENTIAL Lab STAT 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) Iron deficiency anemia due to chronic blood loss Every Week for 52 Occurrences starting 11/13/2023 until 11/12/2024 FERRITIN Lab Routine 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) Iron deficiency anemia due to chronic blood loss Every 3 Months for 4 Occurrences starting 11/13/2023 until 11/12/2024 IRON SCREEN, INCLUDING TIBC Lab Routine 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) Iron deficiency anemia due to chronic blood loss Every 3 Months for 4 Occurrences starting 11/13/2023 until 11/12/2024 VITAMIN B12 Lab Routine 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) Iron deficiency anemia due to chronic blood loss Encounter for long-term (current) use of medications Every 3 Months for 4 Occurrences starting 11/13/2023 until 11/12/2024 FOLIC ACID Lab Routine 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) Iron deficiency anemia due to chronic blood loss Encounter for long-term (current) use of medications Every 3 Months for 4 Occurrences starting 11/13/2023 until 11/12/2024 COMPREHENSIVE METABOLIC PANEL Lab STAT 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) Iron deficiency anemia due to chronic blood loss Every 3 Months for 4 Occurrences starting 11/13/2023 until 11/12/2024 Scheduled Procedures Name Priority Associated Diagnoses Date/Ti [...] 100 05/2022, 11/09/2022, Additional history exists GFR 04/30/2024 11/01/2023, 0 07/2023, 10/02/2023, Additional history exists Depression Screening 10/30/2024 10/31/2023 [...] this encounter Medical Devices Implanted Type Area Registered Dental Hygienist Device Identifier Shelf Expiration Date Model / Serial / Lot Shaft Fibula 6cm [id number] - [id number] [place]ed:[place] 1 [place] [facility] [place]/A: Spine Cervical MUSCULOSKELETAL TRANSPLANT FND 04/20/2010 [id number] / [id number] 0P / Stent Eso Gw 22x70 02529-817 - [id number] Implanted:Qty: 1 on [place]21/2008 [place] [facility] [place]: Esophagus [employer] 04/12/2009 84914-314 / / [id number] Depuy Uniplate 32 Implanted:Qty: 1 [place] 09[place]05/2008 [place] [facility] [place]: Spine Cervical TAMMY & TAMMY DEPUY 1897-302 / / Depuy Uniplate Screw 14mm Implanted:Qty: 2 on 09/05/2008 [place] [facility] [place]: Spine Cervical TAMMY & TAMMY DEPUY 1896-07-017 / / Depuy Lordotic Bengal Cage Implanted:Qty: 1 on 05[place]07/2010 [place] [facility] [place]: Neck 1773-06-146 / 1773-06-146 / Plate Zach 3 Level Ti 54mm - [id number] Implanted:Qty: 1 on 05[place]07/2010 [place] [facility] [place]: Neck JNJ : DEPUY SPINE [id number] / / Screw Zach Const St Ti 14mm - [id number] Implanted:Qty: 4 on 05/07/2010 [place] [facility] [place]: Neck JNJ : DEPUY SPINE [id number] 14 / / Screw 3.5x14 Mntr Fa [id number] - [id number] Implanted:Qty: 8 on 05[place]07/2010 [place] [facility] [place]: Spine Cervical JNJ : ETHICON [employer]ATIONS [id number] / / Jarrell [id number] - [id number] Implanted:Qty: 1 on 05/07/2010 [place] [facility] [place]: Spine Cervical JNJ : ETHICON CARDIOVATIONS [id number] / / Screw Inner Mntr [id number] - [id number] Implanted:Qty: 8 on 05/07/2010 [place] [facility] [place]: Spine Cervical JNJ : ETHICON CARDIOVATIONS [id number] / / Envista Intraocular Lens Implanted:Qty: 1 on 03/10/2022 by Liang Marshall MD at OR [facility] Right: Eye BAUSCH & LOMB 08/13/2023 [id number] / [id number] / [id number] Envista Intraocular Lens Implanted:Qty: 1 on 03/24/2022 by Liang Marshall MD at OR [facility] Left: Eye BAUSCH & LOMB 07/13/2024 [id number] / [id number] / [id number] documented as of this encounter Visit Diagnoses Diagnosis 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)- Primary Thrombocytopenia, congenital and hereditary (HCC) Congenital and hereditary thrombocytopenic purpura Erythrocytosis Polycythemia, secondary Iron deficiency anemia due to chronic blood loss Iron deficiency anemia secondary to blood loss (chronic) Anemia, unspecified type Encounter for long-term (current) use of medications Encounter for long-term (current) use of other medications documented in this encounter Advance Directives Documents on File Type Date Recorded Patient Grinder Chipper Expl anation POL 01/26/2021 [place] [facility] FOR [...] Power of Attor andrew? No Care Teams Secy Relationship Specialty Start Date End Date Jocelyne Desai DO [address] [place] [address] [place] [address] PCP - General Internal Medicine 11/09/16 documented as of this encounter
--- OUTSIDE RECORDS SUMMARY | 2024-01-29 17:56 | External Medical Summary | Summary of Care ---
Author Name Unknown Organization [facility] Address [address] [facility] [place] [address] Phone [phone] Care Team Providers Care Search Engineer Name Role Phone DesaiJocelyne victor Primary Care Provider + [phone] Reason for Visit * Reason Comments Outpatient Testing Encounter Details Date Type Department Care Team (Late st Contact Info) Description 11/20/2023 1:40 PM EDT Laboratory Laboratory [facility] [place] [address] [place] [phone] [facility] [address] [place] [address] Chronic atrial fibrillation (HCC) Allergies No known [...] Good connectivity [facility] for wound care [phone] Televideo if needed. Problem Noted Date Diagnosed [...] ICD-10 update of inactive term PLATT RESEARCH OTHER*[id number] 02/20/2007 ADVANCE DIRECTIVE INFORMATION 01/19/2005 Overview: Yes, [...] [place] office early next week will need [facility] provider recheck Multiple and open wound [...] 11/17/19 23 LUMBAGO 12/24/2002 05/09/2007 LOC PRIM [id number] 12/24/200208/13 DEGENERATIVE SKIN DISORD 12/24/2002 VERTEBRAL FX [...] Description 11/20/2023 2:00 PM EDT Office Visit NephrologyCely [address] [place] [address] Jennifer Agustin MD [address] [place] [address] 11/21/2023 6:15 AM EDT Anticoagulation Centralized Clinical Pharmacy Services, Ilya Lafleur [address] [place] [address] [place] [address] [facility], [address] [place] [address] 11/30/2023 12:40 PM EDT Office Visit Nephrology [address] [place] [address] AgustinJennifer crook MD 200 [facility] [place] [address] 01/19/2024 9:00 AM EST Office Visit Gastroenterology [address] [place] [address] Moon Avila CRNP [address] [facility] [place] [address] 02/20/2024 12:30 PM EST Nurse Only Ancillary [address] [place] [address] [place], Nurse [address] [place] [address] 03/08/2024 2:30 PM EST Office Visit Family Medicine [address] [place] [phone] Jocelyne Desai [address] [place] [address] Pending Results Name Type Priority Associated Diagnoses [...] this encounter Medical Devices Implanted Type Area Bonsai Tender Device Identifier Shelf Expiration Date Model / Serial / Lot Shaft Fibula 6cm 296571 - [id number] Implanted:Qty: 1 on 09/05/2008 [place] [facility] [place] Tissue - Human N/A: Spine Cervical MUSCULOSKELETAL TRANSPLANT FND 04/20/2010 895406 / [id number] 0P / Stent Eso Gw 22x70 44726-297 - [id number] Implanted:Qty: 1 on 01/21/2008 at [place] [facility] [place] N/A: Esophagus [employer] 04/12/2009 20335-340 / / [id number] Depuy Uniplate 32 Implanted:Qty: 1 on 09/05/2008 [...] Plate Zach 3 Level Ti 54mm - [id number] Implanted:Qty: 1 on 05/07/2010 at [place] [facility] [place] N/A: Neck JNJ : DEPUY SPINE [id number] 54 / / Screw Zach Const St Ti 14mm - [id number] Implanted:Qty: 4 on 05/07/2010 at [place] [facility] [place] N/A: Neck JNJ : DEPUY SPINE [id number] 14 / / Screw 3.5x14 Mntr Fa [id number] - [id number] Implanted:Qty: 8 on 05/07/2010 at [place] [facility] [place] N/A: Spine Cervical JNJ : ETHICON CARDIOVATIONS [id number] / / Jarrell [id number] - [id number] Implanted:Qty: 1 on 05/07/2010 at [place] [facility] [place] N/A: Spine Cervical JNJ : ETHICON CARDIOVATIONS [id number] / / Screw Inner Mntr [id number] - [id number] Implanted:Qty: 8 on 05/07/2010 at [place] [facility] [place] N/A: Spine Cervical JNJ : ETHICON CARDIOVATIONS [id number] / / Envista Intraocular Lens Implanted:Qty: 1 on 03/10/2022 by Liang Marshall MD at [facility] Right: Eye BAUSCH & LOMB 08/13/2023 [id number] / [id number] / [id number] Envista Intraocular Lens Implanted:Qty: 1 on 03/24/2022 by Liang Marshall MD at [facility] Left: Eye BAUSCH & LOMB 07/13/2024 [id number] / [id number] / [id number] documented as of this encounter Visit Diagnoses Diagnosis Chronic atrial fibrillation (HCC) Atrial fibrillation documented in this encounter Advance Directives Documents on File Type Date Recorded Patient Slate Splitter Expl anation POLST 01/26/2021 [place] OR [facility] FOR [facility]-SUSTAINING TREATMENT [...] Power of Attor andrew? No Care Teams Search Engineer Relationship Specialty Start Date End Date Jocelyne Desai DO [address] [place] [address] [place] [address] PCP - General Internal Medicine 11/09/16 documented as of this encounter
--- OUTSIDE RECORDS SUMMARY | 2024-01-29 17:56 | External Medical Summary | Summary of Care ---
Author Name Unknown Organization [facility] Address [address] [facility] [address] Phone [phone] Care Team Providers Care Hand Baseball Sewer Name Role Phone Jocelyne Desai Primary Care Provider + [phone] Reason for Visit * Reason Onset Date Comments Medication Pre-auth 11/13/2023 Retacrit Encounter Details Date Type Department Care Team (Late st Contact Info) Description 11/13/2023 Telephone Hematology/Oncology Treatment, [place] [address] [place] [address] Monse Coates MD [address] [place] [phone] Medication Pre-auth (Retacrit) Allergies No known [...] [facility] [phone] Televideo if needed. Problem Noted Date Diagnosed [...] ICD-10 update of inactive term PLATT RESEARCH OTHER*[id number] 02/20/2007 ADVANCE DIRECTIVE INFORMATION 01/19/2005 Overview: Yes, [...] 11/17/19 23 LUMBAGO 12/24/2002 05/09/2007 LOC PRIM [id number] 12/24/200208/13 DEGENERATIVE SKIN DISORD 12/24/2002 VERTEBRAL FX [...] Encounter - Halie Stinson LPN - 11/14/2023 3:[address] Aminata BANERJEE Patient is holding on scheduling the Retacrit due to applying for financial assistance. * Telephone Encounter - Halie Stinson LPN - 11/14/2023 3:33 PM EDT Beverly English OSA Called and spoke with patient regarding Retacrit OOP. He does have 20% coinsurance of $213.92 but he did just receive an application for [employer] Financial Assistance and is filling it out and applying. If approved would have no OOP. Will make office aware once received and approved. * Telephone Encounter - Halie Stinson LPN - 11/14/2023 3:32 PM EDT 11/14/2023 3:29 PM Beverly English OSA Retacrit - Note: Date of Services: not yet schedule Facility: [facility] Hem/Onc SP Estimate of Services for the [...] qualifies no OOP * Telephone Encounter - Josfaat Jeffers RN - 11/13/2023 2:56 PM EDT [...] 11:01 AM EDT Order received for Epoetin [place] plan built and routed to provider Awaiting prior authorization before scheduling patient. Lab orders placed. documented in this encounter Plan of Treatment Upcoming Encounters Date Type Department Care Team (Late st Contact Info) Description 11/20/2023 6:30 AM EDT Anticoagulation Centralized Clinical Pharmacy Services, Ilya Lafleur [address] [place] [address] [place] [address] [facility], [address] [place] [address] 11/20/2023 1:00 PM EDT Office Visit Hematology[facility] [address] [facility] [place] [phone] Monse Coates MD [address] [place] [address] [place] [address] 11/20/2023 2:00 PM EDT Office Visit Nephrology, [facility] 200 [facility] [place] [address] Jennifer Agustin MD 200 [facility] [place] [address] 11/30/2023 12:40 PM EDT Office Visit Nephrology [address] [place] [address] Jennifer Agustin MD 200 [facility] [place] [address] 01/19/2024 9:00 AM EST Office Visit Gastroenterology [address] [place] [address] Moon Avila CRNP 132 [place] [address] 02/20/2024 12:30 PM EST Nurse Only Ancillary [address] [place] [address] [place], Nurse [address] [place] [address] 03/08/2024 2:30 PM EST Office Visit Family Medicine [address] [place] [phone] Jocelyne Desai[address] [place] [address] Scheduled Orders Name Type Priority Associated Diagnoses [...] 11/09/2022, Additional history exists GFR 04/30/2024 11/01/2023, 09/0 07/2023, 10/02/2023, Additional history exists Depression Screening [...] this encounter Medical Devices Implanted Type Area Sole Leveler Device Identifier Shelf Expiration Date Model / Serial / Lot Shaft Fibula 6cm [id number] - [id number] [place]ed:Q[place] 1 [place] [facility] [place] N/A: Spine Cervical MUSCULOSKELETAL TRANSPLANT FND 04/20/2010 [id number] / [id number] 0P / Stent Eso Gw 22x70 22089-074 - [id number] Implanted:Qty: 1 [place]21/[place] [facility] [place]A: Esophagus [employer]US INC 04/12/2009 52121-754 / / [id number] Depuy Uniplate 32 Implanted:Qty: 1 on 09/05/2008 [...] Plate Zach 3 Level Ti 54mm - [id number] Implanted:Qty: 1 on 05/07/2010 [place] [facility] [place]: Neck JNJ : DEPUY SPINE [id number] 54 / / Screw Zach Const St Ti 14mm - [id number] Implanted:Qty: 4 [place] 05[place]07/[place] [facility] [place]: Neck JNJ : DEPUY SPINE [id number] 14 / / Screw 3.5x14 Mntr Fa [id number] - [id number] Implanted:Qty: 8 on 05[place]07/[place] [facility] [place]: Spine Cervical JNJ : ETHICON CARDIOVATIONS [id number] / / Jarrell [id number] - [id number] Implanted:Qty: 1 [place] 05[place]07/[place] [facility] [place]: Spine Cervical JNJ : ETHICON CARDIOVATIONS [id number] / / Screw Inner Mn [id number] - [id number] Implanted:Qty: 8 [place] 05[place]07/[place] [facility] [place]: Spine Cervical JNJ : ETHICON CARDIOVATIONS [id number] / / Envista Intraocular Lens Implanted:Qty: 1 on 03/10/2022 by Liang Marshall MD at OR [facility] Right: Eye BAUSCH & LOMB 08/13/2023 [id number] / [id number] / [id number] Envista Intraocular Lens Implanted:Qty: 1 on 03/24/2022 by Liang Marshall MD at OR [facility] Left: Eye BAUSCH & LOMB 07/13/2024 [id number] / [id number] / [id number] documented as of this encounter Visit Diagnoses [...] Documents on File Type Date Recorded Patient Auto Transmission Specialist Expl anation [place] 01/26/2021 [place] [facility] FOR LIFE-SUSTAINING TREATMENT [...] Power of Attor andrew? No Care Teams Hand Baseball Sewer Relationship Specialty Start Date End Date Jocelyne Desai DO [address] [place] [address] [place] [address] PCP - General Internal Medicine 11/09/16 documented as of this encounter
--- OUTSIDE RECORDS SUMMARY | 2024-01-29 17:56 | External Medical Summary ---
Author Name Unknown Address Unknown Organization [facility] [place] [address] Laboratory Report Ordering Provider Test Date Status DONNELL PRIETO 11/20/2023 13:39:20 Final Please draw PT/INR every 1-4 weeks or as requested by the [facility]

Warfarin Therapy
INR: 2.0-3.0 conventional anticoagulation
INR: 2.5-3.5 high intensity anticoagulation Observation Date Value Abnormality Reference (Units ) Status PT 11/20/2023 13:39:20 20.1 Above high normal 11 .6-15.2 (seconds) Final INR 11/20/2023 13:39:20 1.7 Above high normal 0. 8-1.2 Final Performing Location [facility] [place] [address]
--- OUTSIDE RECORDS SUMMARY | 2024-01-29 17:56 | External Medical Summary | Summary of Care ---
Author Name Unknown Organization [facility] Address [address] [facility] [place] [address] Phone [phone] Care Team Providers Care Woodworking Shop Laborer Name Role Phone Jocelyne Desai DO Primary Care Provider + [phone] Encounter Details Date Type Department Care Team (Late st Contact Info) Description 11/15/2023 Orders Only Family Medicine [address] [place] [address] Jocelyne Desai DO [address] [place] [address] [place] [address] Allergies No known active allergiesdocumented as of this encounter (statuses as of 11/15/2023) Medications Medication Sig Dispensed Refills Start Date [...] as of this encounter (statuses as of 11/15/2023) Active Problems Patient Care Coordination No te Formatting of this note migh t be different from the original. Good connectivity [facility] for wound care [phone] Televideo if needed. 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 SPINAL STENOSIS-LUMBAR 09/23/2002 Vitamin D deficiency Cervical spinal stenosis documented as of this encounter (statuses as of 11/15/2023) Resolved Problems Problem Noted Date Diagnosed Date [...] 11/17/19 23 LUMBAGO 12/24/2002 05/09/2007 LOC PRIM [id number] 12/24/200208/13 DEGENERATIVE SKIN DISORD 12/24/2002 VERTEBRAL FX [...] as of this encounter (statuses as of 11/15/2023) Immunizations Name Administration Dates Next Due COVID-19 mRNA, LNP-s, No Pre serve, 2-Dose Series (Moderna) 03/19/2020 COVID-19 mRNA, LNP-s, No Pre serve, 2-Dose Series (Pfizer) 02/16/2021,04/09/2020,03/19/2020 COVID-19, MRNA-LNP, 23-24, P F, 30 MCG/0.3 mL, 12 YRS AND ABOVE, IM (Lightonus.com-Comirnaty) 11/16/2022 Covid-19, Mrna, Lnp-s, Pf, B ivalent, [...] Anticoagulation Centralized Clinical Pharmacy Services, Ilya Lafleur [address] [place] [address] [place] [address] [place] [address] 11/20/2023 1:00 PM EDT Office Visit Hematology/Oncology [facility] [place] 200 [facility] [place] [phone] Monse Coates MD [address] [place], [place] [address] [address] 11/20/2023 2:00 PM EDT Office Visit Nephrology, [facility] 200 [facility] [place] [address] Jennifer Agustin MD 200 [facility] [place] [address] 11/30/2023 12:40 PM EDT Office Visit Nephrology [address] [place] [address] Jennifer Agustin MD 200 [facility] [place] [address] 01/19/2024 9:00 AM EST Office Visit Gastroenterology [address] [place] [address] Moon Avila, OLEG [address] [place] [address] 02/20/2024 12:30 PM EST Nurse Only Ancillary [address] [place] [address] [place], Nurse Annual [address] [place] [address] 03/08/2024 2:30 PM EST Office Visit Family Medicine [address] [place] [phone] Jocelyne Desai, [address] [place] [address] Scheduled Procedures Name Priority Associated Diagnoses Date/Ti [...] 08/23/2023, 05/2022, 11/09/2022, Additional history exists GFR 04/30/2024 11/13/2023, 10/14, 10/20/2023, Additional history exists Depression [...] encounter Medical Devices Implanted Type Area Senior Cost Analyst Device Identifier Shelf Expiration Date Model / Serial / Lot Shaft Fibula 6cm [id number] - [id number] Implanted:Qty: 1 on 09/05/2008 at OR [place] Tissue - Human N/A: Spine Cervical MUSCULOSKELETAL TRANSPLANT FND 04/20/2010 [id number] / [id number] 0P / Stent Eso Gw 22x70 [id number] - [id number] Implanted:Qty: 1 on 01/21/2008 at OR [place] N/A: Esophagus ALVEOLUS INC 04/12/2009 71546-859 / / [id number] Depuy Uniplate 32 Implanted:Qty: 1 on 09/05/2008 at OR [place] N/A: Spine Cervical TAMMY & TAMMY DEPUY 1897--302 / / Depuy Uniplate Screw 14mm Implanted:Qty: 2 on 09/05/2008 at OR [place] N/A: Spine Cervical TAMMY & TAMMY DEPUY 1896-07-017 / / Depuy Lordotic Bengal Cage Implanted:Qty: 1 on 05/07/2010 at OR [place] N/A: Neck 1773-06-146 / 1773-06-146 / Plate Zach 3 Level Ti 54mm - [id number] Implanted:Qty: 1 on 05/07/2010 at OR [place] N/A: Neck JNJ : DEPUY SPINE [id number] / / Screw Zach Const St Ti 14mm - [id number] Implanted:Qty: 4 on 05/07/2010 at OR [place] N/A: Neck JNJ : DEPUY SPINE [id number] / / Screw 3.5x14 Mntr Fa [id number] - [id number] Implanted:Qty: 8 on 05/07/2010 at OR [place] N/A: Spine Cervical JNJ : ETHICON CARDIOVATIONS [id number] / / Jarrell 3.5j231ti [id number] - [id number] Implanted:Qty: 1 on 05/07/2010 at OR [place] N/A: Spine Cervical JNJ : ETHICON CARDIOVATIONS [id number] / / Screw Inner Mntr [id number] - [id number] Implanted:Qty: 8 on 05/07/2010 at OR [place] N/A: Spine Cervical JNJ : ETHICON CARDIOVATIONS [id number] / / Envista Intraocular Lens Implanted:Qty: 1 on 03/10/2022 by Liang Marshall MD at OR [facility] Right: Eye BAUSCH & LOMB 08/13/2023 [id number] / [id number] / [id number] Envista Intraocular Lens Implanted:Qty: 1 on 03/24/2022 by Liang Marshall MD at OR [facility] Left: Eye BAUSCH & LOMB 07/13/2024 [id number] / [id number] / [id number] documented as of this encounter Procedures Procedure Name Priority Date/Time Associated Diagnosis Comments CHEMISTRY-OUTSIDE Routine 11/13/2023 documented in this encounter Results * (ABNORMAL) CHEMISTRY-OUTSIDE (11/13/2023) Not all results display below - see scan for full detail OUTSIDE LAB (SEE SCANNED REPORT) Comment:SCAN INCLUDES - BMP, IRON/TIBC, PHOSPHORUS CREATININE 3.95(A) 0.70 - 1.30 MG/DL OUTSIDE LAB (SEE SCANNED REPORT) EGFR 15(L) >=60 ML/MIN/1.7 3M2 OUTSIDE LAB (SEE SCANNED REPORT) POTASSIUM 3.9 3.5 - 5.1 MMOL/L OUTSIDE LAB (SEE SCANNED REPORT) GLUCOSE 129(A) 70 - 110 MG/DL OUTSIDE LAB (SEE [...] LAB OUTSIDE LAB (SEE SCANNED REPORT) HEMOGLOBIN, F3K-BUMURJK LAB OUTSIDE LAB (SEE SCANNED REPORT) PHOSPHORUS-OUTSID E LAB 3.9 2.5 - 4.9 MG/DL OUTSIDE LAB (SEE SCANNED REPORT) PTH-OUTSIDE LAB OUTS VAMSI LAB (SEE SCANNED REPORT) MICROALBUMIN RATIO-OUTSIDE LAB OUTSIDE LA B (SEE SCANNED REPORT) PROTEIN, UA-OUTSIDE LAB OUTSIDE LAB (SEE SCANNED REPORT) HGB OUTSIDE LA B (SEE SCANNED REPORT) 11/13/2023 Jocelyne Desai DO LABORATORY OUTSIDE LAB (SEE SCANNED REPORT) documented in this encounter Advance Directives Documents on File Type Date Recorded 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 No Care Teams Woodworking Shop Laborer Relationship Specialty Start Date End Date Jocelyne Desai DO [address] [place] [address] [place] [phone] PCP - General Internal Medicine 11/09/16 documented as of this encounter
--- OUTSIDE RECORDS SUMMARY | 2024-01-29 17:56 | External Medical Summary | Summary of Care ---
Author Name Unknown Organization [facility] Address [address] [facility] [place] [address] Phone [phone] Care Team Providers Care 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s Writer Name Role Phone Jocelyne Desai DO Primary Care Provider + [phone] Encounter Details Date Type Department Care Team (Late st Contact Info) Description 11/14/2023 Orders Only Family Medicine [address] [place] [address] Jocelyne Desai DO [address] [place] [address] [place] [address] Allergies No known active allergiesdocumented as of [...] connectivity [facility] for wound care [phone] Televideo if needed. 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 [...] ICD-10 update of inactive term PLATT RESEARCH OTHER*[id number] 02/20/2007 ADVANCE DIRECTIVE INFORMATION 01/19/2005 Overview: Yes, [...] 11/17/19 23 LUMBAGO 12/24/2002 05/09/2007 LOC PRIM [id number] 12/24/200208/13 DEGENERATIVE SKIN DISORD 12/24/2002 VERTEBRAL FX [...] MCG/0.3 mL, 12 YRS AND ABOVE, IM (Livestation-Comirnaty) 11/16/2022 Covid-19, Mrna, Lnp-s, Pf, B ivalent, 30 Mcg, IM, 12 yrs and above (Pfizer) 11/16/2021 Diptheria/Tetanus (Adult) 12/01/2018 Hepatitis B, 20+ yrs 11/11/2002,06/10/2002,05/13 Pneumococcal Conjugate Vacc, 13 Valent (Prevnar) 11/01/2017 Pneumococcal Polysaccharide PPV23 (Pneumovax) 11/27/2018,09/28/2005 Season Influenza, Quad, PF, Adjuvanted, 65+ Yrs, IM (FLUAD) 10/22/2019 Seasonal Influenza, High Dos e, Trivalent, PF, [...] Centralized Clinical Pharmacy Services, Ilya Lafleur [address] [place] [address] [place] [address] [place] [address] 11/20/2023 1:00 PM EDT Office Visit Hematology/Oncology [facility] [address] [place] [phone] Monse Coates MD [address] [place] [address] 11/20/2023 2:00 PM EDT Office Visit Nephrology, [facility] [address] [place] [address] Jennifer Agustin MD 200 [facility] [place] [address] 11/30/2023 12:40 PM EDT Office Visit Nephrology [address] [place] [address] Jennifer Agustin MD [address] [place] [address] 01/19/2024 9:00 AM EST Office Visit Gastroenterology [address] [place] [address] Moon Avila, OLEG [address] [place] [address] 02/20/2024 12:30 PM EST Nurse Only Ancillary [address] [place] [address] [place], Nurse Annual [address] [place] [address] 03/08/2024 2:30 PM EST Office Visit Family Medicine [address] [place] [phone] Jocelyne Desai [address] [place] [address] Scheduled Procedures Name Priority Associated Diagnoses Date/Ti [...] 10/0 05/2022, 11/09/2022, Additional history exists GFR 04/30/2024 [...] this encounter Medical Devices Implanted Type Area Shirt Trimmer Device Identifier Shelf Expiration Date Model / Serial / Lot Shaft Fibula 6cm [id number] - [id number] Implanted:Qty: 1 on 09/05/2008 [place] [facility] [place] - Human N/A: Spine Cervical MUSCULOSKELETAL TRANSPLANT FND 04/20/2010 [id number] / [id number] 0P / Stent Eso Gw 22x70 15059-200 - [id number] Implanted:Qty: 1 on 01/21/2008 at [place] [facility] [place] N/A: Esophagus ALVEOLUS INC 04/12/2009 54439-499 / / [id number] Depuy Uniplate 32 Implanted:Qty: 1 on 09/05/2008 at [place] [facility] [place]/A: Spine Cervical TAMMY & TAMMY DEPUY 7302 / / Depuy Uniplate Screw 14mm Implanted:Qty: 2 on 09/05/2008 at [place] [facility] [place] N/A: Spine Cervical TAMMY & TAMMY DEPUY 017 / / Depuy Lordotic Bengal Cage Implanted:Qty: 1 on 05/07/2010 at [place] [facility] [place] N/A: Neck 1773-06-146 / 1773-06-146 / Plate Zach 3 Level Ti 54mm - [id number] Implanted:Qty: 1 on 05/07/2010 at [place] [facility] [place]/A: Neck JNJ : DEPUY SPINE [id number] 54 / / Screw Zach Const St Ti 14mm - [id number] Implanted:Qty: 4 on 05/07/2010 at [place] [facility] [place] N/A: Neck JNJ : DEPUY SPINE [id number] 14 / / Screw 3.5x14 Mntr Fa [id number] - [id number] Implanted:Qty: 8 on 05/07/2010 at [place] [facility] [place] N/A: Spine Cervical JNJ : ETHICON CARDIOVATIONS [id number] / / Jarrell 3.2h220we [id number] - [id number] Implanted:Qty: 1 on 05/07/2010 at [place] [facility] [place] N/A: Spine Cervical JNJ : ETHICON CARDIOVATIONS [id number] / / Screw Inner Mntr [id number] - [id number] Implanted:Qty: 8 on 05/07/2010 at [place] [facility] [place] N/A: Spine Cervical JNJ : ETHICON CARDIOVATIONS [id number] / / Envista Intraocular Lens Implanted:Qty: 1 on 03/10/2022 by Liang Marshall MD at OR [facility] Right: Eye BAUSCH & LOMB 08/13/2023 [id number] / [id number] / [id number] Envista Intraocular Lens Implanted:Qty: 1 on 03/24/2022 by Liang Marshall MD at OR [facility] Left: Eye BAUSCH & LOMB 07/13/2024 [id number] / [id number] / [id number] documented as of this encounter Procedures Procedure Name Priority Date/Time Associated Diagnosis Comments HGB Routine 11/13/2023 documented in this encounter Results * (ABNORMAL) HGB (11/13/2023) HGB 7.8(A) 13.5 - 18.0 GM/DL OUTSIDE LAB (SEE SCANNED REPORT) Blood Venous blood specimen / Unknown 11/13/2023 Jocelyne Desai DO LAB BLOOD ORDERABLES OUTSIDE LAB (SEE SCANNED REPORT) documented in this encounter Advance Directives Documents on File Type Date Recorded 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 No Care Teams 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s Writer Relationship Specialty Start Date End Date Jocelyne Desai DO [address] [place] [address] [place] [address] PCP - General Internal Medicine 11/09/16 documented as of this encounter
--- OUTSIDE RECORDS SUMMARY | 2024-01-29 17:56 | External Medical Summary | Summary of Care ---
Author Name Unknown Organization [facility] [address] [facility] [address] Phone [phone] Care Team Providers Care Implementation Advisor Name Role Phone Jocelyne Desai Primary Care Provider + [phone] Reason for Visit * Reason Onset Date Comments Medication Pre-auth 11/13/2023 Retacrit Encounter Details Date Type Department Care Team (Late st Contact Info) Description 11/13/2023 Telephone Hematology/Oncology Treatment, [place] [address] [place] [address] Monse Coates MD [address] [place] [phone] Medication Pre-auth (Retacrit) Allergies No known active allergiesdocumented as of this encounter (statuses as of 11/13/2023) Medications Medication Sig Dispensed Refills Start Date [...] as of this encounter (statuses as of 11/13/2023) Active Problems Patient Care Coordination No te Formatting of this note migh t be different from the original. Good connectivity [facility] for wound care [phone] Televideo if needed. Problem Noted Date Diagnosed [...] ICD-10 update of inactive term PLATT RESEARCH OTHER*[id number] 02/20/2007 ADVANCE DIRECTIVE INFORMATION 01/19/2005 Overview: Yes, Patient instructed to provide copy of advance directive for provider to review and to be scanned into Electronic Medical Record No, Advance Directive brochure given to patient at prior appointment. SPINAL STENOSIS-LUMBAR 09/23/2002 Vitamin D deficiency Cervical spinal stenosis documented as of this encounter (statuses as of 11/13/2023) Resolved Problems Problem Noted Date Diagnosed Date [...] 11/17/19 23 LUMBAGO 12/24/2002 05/09/2007 LOC PRIM [id number] 12/24/200208/13 DEGENERATIVE SKIN DISORD 12/24/2002 VERTEBRAL FX [...] as of this encounter (statuses as of 11/13/2023) Immunizations Name Administration Dates Next Due COVID-19 [...] No 10/31/2023 Does the household have a [facility] hospitall[facility] source of income? (Household - [...] 11:01 AM EDT Order received for Epoetin Buckley plan built and routed to provider Awaiting prior authorization before scheduling patient. Lab orders placed. documented in this encounter Plan of Treatment Upcoming Encounters Date Type Department Care Team (Late st Contact Info) Description 11/20/2023 6:30 AM EDT Anticoagulation Centralized Clinical Pharmacy Services, Ilya Lafleur [address] [place] [address] [place] [address] [place] [address] 11/20/2023 1:00 PM EDT Office Visit Hematology/Oncology [employer] 200 [facility] [place] [address] Monse Coates MD [address] [place] [phone] 11/20/2023 2:00 PM EDT Office Visit Nephrology, [facility] 200 [facility] [place] [address] Jennifer Agustin MD 200 [facility] [place] [address] 01/19/2024 9:00 AM EST Office Visit Gastroenterology [address] [place] [address] Moon Avila CRNP [address] [place] [address] 02/20/2024 12:30 PM EST Nurse Only Ancillary [address] [place] [address] [place], Nurse Annual [address] [place] [address] 03/08/2024 2:30 PM EST Office Visit Family Medicine [address] [place] [phone] Jocelyne Desai, [address] [place] [address] Scheduled Orders Name Type Priority Associated Diagnoses [...] 2023 11/16/2022, 11/16/2021, 02/16/2021, Additional history exists Diabetic Foot Exam 11/17/2023 11/16/2022, 0 05/05/2021, 11/22/2017, Additional history exists Adult Wellness Visit 02/17/2024 02/16/2023, 02/09/2022, 02/08/2021 HbA1c 02/23/2024 08/23/2023, 100 05/2022, 11/09/2022, Additional history exists GFR 04/30/2024 11/01/2023, 090 07/2023, 10/02/2023, Additional history exists Depression Screening [...] encounter Medical Devices Implanted Type Area Hatchery Supervisor Device Identifier Shelf Expiration Date Model / Serial / Lot Shaft Fibula 6cm [id number] - [id number] [place]ed:Q[place] 1 [place] 09[place] [facility] [place] Human N/A: Spine Cervical MUSCULOSKELETAL TRANSPLANT FND 04/20/2010 [id number] / [id number] 0P / Stent Eso Gw 22x70 99417-798 - [id number] Implanted:Qty: 1 on 01/21/2008 [place] [facility] [place]/A: Esophagus ALVEOLUS INC 04/12/2009 36724-065 / / [id number] Depuy Uniplate 32 Implanted:Qty: 1 on 09/05/2008 [...] Plate Zach 3 Level Ti 54mm - [id number] Implanted:Qty: 1 on 05/07/2010 [place] [facility] [place]A: Neck JNJ : DEPUY SPINE [id number] 54 / / Screw Zach Const St Ti 14mm - [id number] Implanted:Qty: 4 on 05/07/2010 [place] [facility] [place]A: Neck JNJ : DEPUY SPINE [id number] 14 / / Screw 3.5x14 Mntr Fa [id number] - [id number] Implanted:Qty: 8 on 05/07/2010 [place] [facility] [place]: Spine Cervical JNJ : ETHICON CARDIOVATIONS [id number] / / Jarrell [id number] - [id number] Implanted:Qty: 1 on 05/07/2010 [place] [facility] [place]A: Spine Cervical JNJ : ETHICON CARDIOVATIONS [id number] / / Screw Inner [facility] [id number] - [id number] Implanted:Qty: 8 on 05/07/2010 [place] [facility] [place]A: Spine Cervical JNJ : ETHICON CARDIOVATIONS [id number] / / Envista Intraocular Lens Implanted:Qty: 1 on 03/10/2022 by Liang Marshall MD at OR [facility] Right: Eye BAUSCH & LOMB 08/13/2023 [id number] / [id number] / [id number] Envista Intraocular Lens Implanted:Qty: 1 on 03/24/2022 by Liang Marshall MD at OR [facility] Left: Eye BAUSCH & LOMB 07/13/2024 [id number] / [id number] / [id number] documented as of this encounter Visit Diagnoses [...] Documents on File Type Date Recorded 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 No Care Teams Implementation Advisor Relationship Specialty Start Date End Date Jocelyne Desai DO [address] [place] [address] [place] [address] PCP - General Internal Medicine 11/09/16 documented as of this encounter
--- OUTSIDE RECORDS SUMMARY | 2024-01-29 17:56 | External Medical Summary ---
Author Name Unknown Address Unknown Organization K09:[facility] [place] [address] Laboratory Report Ordering Provider Test Date Status KUSHAL DOUGHERTY 11/20/2023 15:26:38 Final Observation Date Value Abnormality Reference (Units ) Status BUN 11/20/2023 15:26:38 58 Above high normal 6-20 (mg/dL) Final Creatinine 11/20/2023 15:26:38 3.8 Above high normal 0.6-1.2 (mg/dL) Final Glomerular filtration rate/1.73 sq M.predicted [Volume Rate/Area] in Serum, Plasma or Blood by Creatinine-based formula (CKD-EPI) 11/20/2023 15:26:38 16 Below low normal >=60 (mL/min) Final eGFR is calculated based on the CKD-EPI 2020 equation. Sodium 11/20/2023 15:26:38 137 135-146 (m mol/L) Final Potassium 11/20/2023 15:26:38 4.2 3.5-5.1 (m mol/L) Final Cl 11/20/2023 15:26:38 107 98-107 (mm ol/L) Final CO2 11/20/2023 15:26:38 19 Below low normal 22- 32 (mmol/L) Final Anion gap 11/20/2023 15:26:38 11 7-15 (mmol /L) Final Glucose 11/20/2023 15:26:38 124 Above high normal 70 -120 (mg/dL) Final Calcium 11/20/2023 15:26:38 8.1 Below low normal 8.4 -10.2 (mg/dL) Final Performing Location [facility] [place] [address]
--- OUTSIDE RECORDS SUMMARY | 2024-01-29 17:56 | External Medical Summary | Summary of Care ---
Author Name Unknown Organization [facility] Address [address] [facility] [place] [address] Phone [phone] Care Team Providers Care Forensic Locksmith Name Role Phone DesaiJocelyne victor DO Primary Care Provider + [phone] Encounter Details Date Type Department Care Team (Late st Contact Info) Description 11/14/2023 Orders Only PATIENT PORTAL DO NOT DELETE THIS DEPT USED BY GE[place] HEIN [id number] Allergies No known active allergiesdocumented as of [...] be different from the original. Good connectivity [facility] for wound care [phone] Televideo if needed. Problem Noted Date Diagnosed [...] up with podiatry,. Letter in chart from [facility] podiatry they were unable to [...] ICD-10 update of inactive term PLATT RESEARCH OTHER*[id number] 02/20/2007 ADVANCE DIRECTIVE INFORMATION 01/19/2005 Overview: Yes, [...] 11/17/19 23 LUMBAGO 12/24/2002 05/09/2007 LOC PRIM [id number] 12/24/200208/13 DEGENERATIVE SKIN DISORD 12/24/2002 VERTEBRAL FX [...] Does the household have a [facility] source of income? (Household - for ages [...] Centralized Clinical Pharmacy Services, Ilya Lafleur [address] [place] [address] [place] [address] [place] [address] 11/20/2023 1:00 PM EDT Office Visit Hematology/Oncology Cely Zaldivar [place] [address] [address] Monse Coates MD [address] [place] [phone] 11/20/2023 2:00 PM EDT Office Visit Nephrology, [facility] 200 [facility] [place] [address] Jennifer Agustin MD 200 [facility] [place] [address] 11/30/2023 12:40 PM EDT Office Visit Nephrology [address] [place] [address] AgustinJennifer crook MD 200 [facility] [place] [address] 01/19/2024 9:00 AM EST Office Visit Gastroenterology [address] [place] [address] Moon Avila CRNP [address] [place] [address] 02/20/2024 12:30 PM EST Nurse Only Ancillary [address] [place] [address] [place], Nurse [address] [place] [address] 03/08/2024 2:30 PM EST Office Visit Family Medicine [address] [place] [phone] Jocelyne Desai [address] [place] [address] Scheduled Procedures Name Priority Associated Diagnoses Date/Ti [...] 08/23/2023, 1005/2022, 11/09/2022, Additional history exists GFR 04/30/2024 11/01/2023, [...] encounter Medical Devices Implanted Type Area Lead Quality Technician Device Identifier Shelf Expiration Date Model / Serial / Lot Shaft Fibula 6cm [id number] - [id number] Implanted:Qty: 1 on 09/05/2008 at OR [facility] Tissue - Human N/A: Spine Cervical MUSCULOSKELETAL TRANSPLANT FND 04/20/2010 [id number] / [id number] 0P / Stent Eso Gw 22x70 55140-621 - [id number] Implanted:Qty: 1 on 01/21/2008 at OR [facility] N/A: Esophagus [employer]US INC 04/12/2009 62914-722 / / [id number] Depuy Uniplate 32 Implanted:Qty: 1 on 09/05/2008 at OR [facility] N/A: Spine Cervical TAMMY & TAMMY DEPUY 189302 / / Depuy Uniplate Screw 14mm Implanted:Qty: 2 on 09/05/2008 at OR [facility] N/A: Spine Cervical TAMMY & TAMMY DEPUY 1896-07-017 / / Depuy Lordotic Bengal Cage Implanted:Qty: 1 on 05/07/2010 at OR [facility] N/A: Neck 1773-06-146 / 1773-146 / Plate Zach 3 Level Ti 54mm - [id number] Implanted:Qty: 1 on 05/07/2010 at OR [facility] [place] N/A: Neck JNJ : DEPUY SPINE [id number] / / Screw Zach Const St Ti 14mm - [id number] Implanted:Qty: 4 on 05/07/2010 at OR [facility] N/A: Neck JNJ : DEPUY SPINE [id number] 14 / / Screw 3.5x14 Mntr Fa [id number] - [id number] Implanted:Qty: 8 on 05/07/2010 at OR [facility] N/A: Spine Cervical JNJ : ETHICON CARD[employer]ATIONS [id number] / / Jarrell [id number] - [id number] Implanted:Qty: 1 on 05/07/2010 at OR [facility] [place] N/A: Spine Cervical JNJ : ETHICON CARDIOVATIONS [id number] / / Screw Inner Mntr [id number] - [id number] Implanted:Qty: 8 on 05/07/2010 at OR [facility] [place] N/A: Spine Cervical JNJ : ETHICON CARDIOVATIONS [id number] / / Envista Intraocular Lens Implanted:Qty: 1 on 03/10/2022 by Liang Marshall MD at OR [facility] Right: Eye BAUSCH & LOMB 08/13/2023 [id number] / [id number] / [id number] Envista Intraocular Lens Implanted:Qty: 1 on 03/24/2022 by Liang Marshall MD at OR [facility] Left: Eye BAUSCH & LOMB 07/13/2024 [id number] / [id number] / [id number] documented as of this encounter Advance Directives Documents on File Type Date Recorded 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 No Care Teams Forensic Locksmith Relationship Specialty Start Date End Date Jocelyne Desai DO [address] [place] [address] [place] [phone] PCP - General Internal Medicine 11/09/16 documented as of this encounter
--- OUTSIDE RECORDS SUMMARY | 2024-01-29 17:56 | External Medical Summary ---
Author Name Unknown Address Unknown Organization K09:[facility] [place] [id number] Laboratory Report Ordering Provider Test Date Status ENMANUEL REARDON 11/20/2023 13:39:20 Final Observation Date Value Abnormality Reference (Units ) Status WBC, Total 11/20/2023 13:39:20 5.07 4.00-10.8 0 (K/uL) Final RBC 11/20/2023 13:39:20 2.99 4.50-5.25 (M/uL) Final Hemoglobin 11/20/2023 13:39:20 8.5 Below low normal 14 .0-16.8 (g/dL) Final HCT 11/20/2023 13:39:20 27.7 Below low normal 40. 0-48.4 (%) Final MCV 11/20/2023 13:39:20 92.6 82.0-99.5 (fL) Final MCH 11/20/2023 13:39:20 28.4 27.0-34.0 (pg) Final MCHC 11/20/2023 13:39:20 30.7 32.0-36.0 (g/dL) Final RDW 11/20/2023 13:39:20 18.8 11.5-15.5 (%) Final Platelets 11/20/2023 13:39:20 168 140-400 (K /uL) Final MPV 11/20/2023 13:39:20 9.8 6.6-11.1 ( fL) Final Performing Location [facility] [place] [id number]
--- OUTSIDE RECORDS SUMMARY | 2024-01-29 17:57 | External Medical Summary | Summary of Care ---
Author Name Unknown Organization [facility] Address [address] [facility] [place] [address] Phone [phone] Care Team Providers Care Port Captain Name Role Phone Jocelyne Desai DO Primary Care Provider [phone] Reason for Visit * Reason Onset Date Comments Scheduling 11/09/2023 Encounter Details Date Type Department Care Team (Late st Contact Info) Description 11/09/2023 Telephone Family Medicine [address] [phone] Jocelyne Desai DO [address] [place] [address] [place] [address] Scheduling Allergies No known active allergiesdocumented as of this encounter (statuses as of 11/09/2023) Medications Medication Sig Dispensed Refills Start Date [...] as of this encounter (statuses as of 11/09/2023) Active Problems Patient Care Coordination No te Formatting of this note migh t be different from the original. Good connectivity [facility] for wound care [phone] Televideo if needed. Problem Noted Date Diagnosed [...] podiatry,. Letter in chart from [facility] podiatry they were unable to get [...] ICD-10 update of inactive term PLATT RESEARCH OTHER*[id number] 02/20/2007 ADVANCE DIRECTIVE INFORMATION 01/19/2005 Overview: Yes, Patient instructed to provide copy of advance directive for provider to review and to be scanned into Electronic Medical Record No, Advance Directive brochure given to patient at prior appointment. SPINAL STENOSIS-LUMBAR 09/23/2002 Vitamin D deficiency Cervical spinal stenosis documented as of this encounter (statuses as of 11/09/2023) Resolved Problems Problem Noted Date Diagnosed Date [...] 11/17/19 23 LUMBAGO 12/24/2002 05/09/2007 LOC PRIM [id number] 12/24/200208/13 DEGENERATIVE SKIN DISORD 12/24/2002 VERTEBRAL FX [...] as of this encounter (statuses as of 11/09/2023) Immunizations Name Administration Dates Next Due COVID-19 [...] encounter Miscellaneous Notes * Telephone Encounter - Rosa Elena Marks, filter screen cleaner - 11/09/2023 12:09 PM EDT Patient requesting to speak to case assistant at [place] office. Transferred to scheduling Thank you, Rosa Elena Marks Syrup Maker I [facility] ([facility]) 11/09/2023,12:10 PM documented in this encounter Plan of Treatment Upcoming Encounters Date Type Department Care Team (Late st Contact Info) Description 11/13/2023 6:30 AM EDT Anticoagulation [facility] Services, Ilya Lafleur [address] [place] [address] [place] [address] [facility], [address] [place] [address] 11/20/2023 1:00 PM EDT Office Visit Hematology/Oncology [facility] [place] 200 [facility] [place] [phone] Monse Coates MD [address] [place] [address] [place] [phone] 11/20/2023 2:00 PM EDT Office Visit Nephrology, [facility] [address] [facility] [address] [place] [address] Jennifer Agustin MD 200 [facility] [place] [address] 01/19/2024 9:00 AM EST Office Visit Gastroenterology [address] [place] [address] Moon [facility] [place] [address] 02/20/2024 12:30 PM EST Nurse Only Ancillary [address] [place] [address] [place], Nurse [address] [place] [address] 03/08/2024 2:30 PM EST Office Visit Family Medicine [address] [place] [phone] Jocelyne Desai, [address] [place] [address] Scheduled Procedures Name [...] this encounter Medical Devices Implanted Type Area Clerk Operator Device Identifier Shelf Expiration Date Model / Serial / Lot Shaft Fibula 6cm [id number] - [id number] Implanted:Qty: 1 on 09/05/2008 at OR [facility] Tissue - Human N/A: Spine Cervical MUSCULOSKELETAL TRANSPLANT FND 04/20/2010 121447 / [id number] 0P / Stent Eso Gw 22x70 68364-435 - [id number] Implanted:Qty: 1 on 01/21/2008 at OR [facility] N/A: Esophagus ALVEOLUS INC 04/12/2009 34852-019 / / [id number] Depuy Uniplate 32 Implanted:Qty: 1 on 09/05/2008 [...] [facility] [place] N/A: Neck 1773-06-146 / 1773-06-146 / Plate Zach 3 Level Ti 54mm - [id number] Implanted:Qty: 1 on 05/07/2010 at OR [facility] N/A: Neck JNJ : DEPUY SPINE 0072634 54 / / Screw Zach Const St Ti 14mm - [id number] Implanted:Qty: 4 on 05/07/2010 at OR [facility] N/A: Neck JNJ : DEPUY SPINE [id number] 14 / / Screw 3.5x14 Mntr Fa [id number] - [id number] Implanted:Qty: 8 on 05/07/2010 at OR [facility] N/A: Spine Cervical JNJ : ETHICON CARDIOVATIONS [id number] / / Jarrell [id number] - [id number] Implanted:Qty: 1 on 05/07/2010 at OR [facility] N/A: Spine Cervical JNJ : ETHICON CARDIOVATIONS [id number] / / Screw Inner Mntr [id number] - [id number] Implanted:Qty: 8 on 05/07/2010 at OR [facility] N/A: Spine Cervical JNJ : ETHICON CARDIOVATIONS [id number] / / Envista Intraocular Lens Implanted:Qty: 1 on 03/10/2022 by Liang Marshall MD at OR [facility] Right: Eye BAUSCH & LOMB 08/13/2023 [id number] / [id number] / [id number] Envista Intraocular Lens Implanted:Qty: 1 on 03/24/2022 by Liang Marshall MD at OR [facility] Left: Eye BAUSCH & LOMB 07/13/2024 [id number] / [id number] / [id number] documented as of this encounter Advance Directives Documents on File Type Date Recorded 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 [...] Power of Attor andrew? No Care Teams Port Captain Relationship Specialty Start Date End Date Jocelyne Desai DO [address] [place] [address] [place] [phone] PCP - General Internal Medicine 11/09/16 documented as of this encounter
--- OUTSIDE RECORDS SUMMARY | 2024-01-29 17:57 | External Medical Summary | Summary of Care ---
Author Name Unknown Organization [facility] Address [address] [facility] [address] Phone [phone] Care Team Providers Care Senior Advocate Name Role Phone Jocelyne Desai Primary Care Provider + [phone] Reason for Visit * Reason Onset Date Comments Medication Pre-auth 11/13/2023 Retacrit Encounter Details Date Type Department Care Team (Late st Contact Info) Description 11/13/2023 Telephone Hematology/Oncology Treatment, [place] [address] [place] [address] Monse Coates MD [address] [place] [phone] Medication Pre-auth (Retacrit) Allergies No known [...] connectivity [facility] for wound care [phone] Televideo if needed. Problem Noted Date Diagnosed [...] ICD-10 update of inactive term PLATT RESEARCH OTHER*[id number] 02/20/2007 ADVANCE DIRECTIVE INFORMATION 01/19/2005 Overview: Yes, [...] [place] office early next week will need [facility] provider recheck Multiple and open wound [...] 11/17/19 23 LUMBAGO 12/24/2002 05/09/2007 LOC PRIM [id number] 12/24/200208/13 DEGENERATIVE SKIN DISORD 12/24/2002 VERTEBRAL FX [...] No 10/31/2023 Does the household have a [facility] source of income? (Household - for [...] 11:01 AM EDT Order received for [place] plan built and routed to provider Awaiting prior authorization before scheduling patient. Lab orders placed. documented in this encounter Plan of Treatment Upcoming Encounters Date Type Department Care Team (Late st Contact Info) Description 11/20/2023 6:30 AM EDT Anticoagulation Centralized Clinical Pharmacy Services, Ilyalillie Lafleur [address] [place] [address] [place] [address] [place] [address] 11/20/2023 1:00 PM EDT Office Visit Hematology/Oncology [facility] [place] 200 [facility] [place] [address] Monse Coates MD [address] [place] [address] [place] [address] 11/20/2023 2:00 PM EDT Office Visit Nephrology, [facility] 200 [facility] [place] [address] Jennifer Agustin MD 200 [facility] [place] [address] 01/19/2024 9:00 AM EST Office Visit Gastroenterology [address] [place] [address] Moon Avila CRNP [address] [facility] [place] [address] 02/20/2024 12:30 PM EST Nurse Only Ancillary [address] [place] [address] [place], Nurse [address] [place] [address] 03/08/2024 2:30 PM EST Office Visit Family Medicine [address] [place] [phone] Jocelyne Desai, [address] [place] [address] Scheduled Orders Name Type Priority Associated Diagnoses [...] 11/09/2022, Additional history exists GFR 04/30/2024 11/01/2023, 07/2023, 10/02/2023, Additional history exists Depression Screening [...] this encounter Medical Devices Implanted Type Area Leveling Machine Operator Device Identifier Shelf Expiration Date Model / Serial / Lot Shaft Fibula 6cm 584054 - [id number] Implanted:Qty: 1 on 09/05/2008 at OR [facility] Tissue - Human N/A: Spine Cervical MUSCULOSKELETAL TRANSPLANT FND 04/20/2010 640906 / [id number] 0P / Stent Eso Gw 22x70 39891-463 - [id number] Implanted:Qty: 1 on 01/21/2008 at OR [facility] N/A: Esophagus ALVEOLUS INC 04/12/2009 77976-873 / / [id number] Depuy Uniplate 32 Implanted:Qty: 1 on 09/05/2008 [...] [facility] [place] N/A: Neck 1773-06-146 / 1773-06-146 / Plate Zach 3 Level Ti 54mm - [id number] Implanted:Qty: 1 on 05/07/2010 at OR [facility] N/A: Neck JNJ : DEPUY SPINE [id number] 54 / / Screw Zach Const St Ti 14mm - [id number] Implanted:Qty: 4 on 05/07/2010 at OR [facility] N/A: Neck JNJ : DEPUY SPINE [id number] 14 / / Screw 3.5x14 Mntr Fa [id number] - [id number] Implanted:Qty: 8 on 05/07/2010 at OR [facility] N/A: Spine Cervical JNJ : ETHICON CARDIOVATIONS [id number] / / Jarrell 3.0u350fv [id number] - [id number] Implanted:Qty: 1 on 05/07/2010 at OR [facility] N/A: Spine Cervical JNJ : ETHICON CARDIOVATIONS [id number] / / Screw Inner Mntr [id number] - [id number] Implanted:Qty: 8 on 05/07/2010 at OR [facility] N/A: Spine Cervical JNJ : ETHICON CARDIOVATIONS [id number] / / Envista Intraocular Lens Implanted:Qty: 1 on 03/10/2022 by Liang Marshall MD at OR [facility] Right: Eye BAUSCH & LOMB 08/13/2023 [id number] / [id number] / [id number] Envista Intraocular Lens Implanted:Qty: 1 on 03/24/2022 by Liang Marshall MD at OR [facility] Left: Eye BAUSCH & LOMB 07/13/2024 [id number] / [id number] / [id number] documented as of this encounter Visit Diagnoses [...] Documents on File Type Date Recorded 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 No Care Teams Senior Advocate Relationship Specialty Start Date End Date Jocelyne Desai DO [address] [place] [address] [place] [phone] PCP - General Internal Medicine 11/09/16 documented as of this encounter
--- OUTSIDE RECORDS SUMMARY | 2024-01-29 17:57 | External Medical Summary | Summary of Care ---
Author Name Unknown Organization [facility] Address [address] [facility] [place] [address] Phone [phone] Care Team Providers Care Fleet Driver Name Role Phone Jocelyne Desai Primary Care Provider [phone] Reason for Visit * Reason Onset Date Comments Test Results 11/03/2023 Encounter Details Date Type Department Care Team (Late st Contact Info) Description 11/03/2023 Telephone Nephrology, Cely Zaldivar [address] [facility] [place] [address] Jennifer Agustin MD [address] [facility] [place] [address] Test Results Allergies No known active allergiesdocumented as of this encounter (statuses as of 11/03/2023) Medications Medication Sig Dispensed Refills Start Date [...] as of this encounter (statuses as of 11/03/2023) Active Problems Patient Care Coordination No te Formatting of this note migh t be different from the original. Good connectivity [facility] for wound care [phone] Televideo if needed. Problem Noted Date Diagnosed [...] ICD-10 update of inactive term PLATT RESEARCH OTHER*[id number] 02/20/2007 ADVANCE DIRECTIVE INFORMATION 01/19/2005 Overview: Yes, Patient instructed to provide copy of advance directive for provider to review and to be scanned into Electronic Medical Record No, Advance Directive brochure given to patient at prior appointment. SPINAL STENOSIS-LUMBAR 09/23/2002 Vitamin D deficiency Cervical spinal stenosis documented as of this encounter (statuses as of 11/03/2023) Resolved Problems Problem Noted Date Diagnosed Date Resolved Date Chronic kidney disease (CKD) , stage IV (severe) 09/27/2023 10/26/2023 Depression, unspecified 11/09/202104/14 Depression, unspecified 11/09/2021 1005/2022 Cellulitis of right leg 07/13/202105/2022 Last Assessment & Plan: Suspect this could be early/localized. Will treat with 7 days antibiotic. If pt cannot be reassess by Dr. Braxton office early next week will need [facility] provider recheck Multiple and open wound [...] 11/17/19 23 LUMBAGO 12/24/2002 05/09/2007 LOC PRIM [id number] 12/24/200208/13 DEGENERATIVE SKIN DISORD 12/24/2002 VERTEBRAL FX [...] as of this encounter (statuses as of 11/03/2023) Immunizations Name Administration Dates Next Due COVID-19 [...] Telephone Encounter - Libby Hurd RN - 11/03/2023 4:04 PM EDT TE with pt regarding lab results. He is aware to have labs done a few days prior to Oct appointment. Orders placed. * Telephone Encounter - Libby Hurd RN - 11/03/2023 4:02 PM EDT ----- Message from Jennifer Agustin MD sent at 11/03/2023 2:58 PM EDT ----- Slowly progressive CKD, marked iron deficiency. Hgb holding for now. -no changes to care -repeat labs >bmp, hgb, t sat about 3 days before early oct visit Neph nurse pls update pt (MyG sent) and orders documented in this encounter Plan of Treatment Upcoming Encounters Date Type Department Care Team (Late st Contact Info) Description 11/06/2023 1:30 PM EDT [facility] [address] [facility] [place] [phone] Monse Coates MD [address] [place] [address] [place] [phone] 11/06/2023 2:30 PM EDT Hem/Onc Treatment Hematology/Oncology Treatment, [facility] [address] [facility] [place] [phone] Kayley, Chair 11 Hem Onc [address] [place] [address] 11/13/2023 6:30 AM EDT Anticoagulation Centralized Clinical Pharmacy Services, Ilya Lafleur [address] [place] [address] [place] [address] Ccps, [address] [place] [address] 11/20/2023 2:00 PM EDT Office Visit [facility] [address] [facility] [place] [address] Jennifer Agustin MD [address] [facility] [place] [address] 01/19/2024 9:00 AM EST Office Visit Gastroenterology [address] [place] [address] Moon Avila CRNP [address] [place] [address] 02/20/2024 12:30 PM EST Nurse Only Ancillary [address] [place] [address] [place], Nurse Annual [address] [place] [address] 03/08/2024 2:30 PM EST Office Visit Family Medicine [address] [place] [phone] Jocelyne Desai, [address] [place] [address] Scheduled Orders Name Type Priority Associated Diagnoses Orde r Schedule BASIC METABOLIC PANEL Lab Routine 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 chronic kidney disease (HCC) Expected: 11/14/2023 (Approximate), Expires: 11/02/2024 HGB Lab Routine 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 chronic kidney disease (HCC) Expected: 11/14/2023 (Approximate), Expires: 11/02/2024 IRON SCREEN, INCLUDING TIBC Lab Routine 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 chronic kidney disease (HCC) Expected: 11/14/2023 (Approximate), Expires: 11/02/2024 Scheduled Procedures Name Priority Associated Diagnoses Date/Ti [...] this encounter Medical Devices Implanted Type Area Life Skills Specialist Device Identifier Shelf Expiration Date Model / Serial / Lot Shaft Fibula 6cm [id number] - [id number] Implanted:Qty: 1 on 09/05/2008 at [place] [facility] [place] Tissue - Human N/A: Spine Cervical MUSCULOSKELETAL TRANSPLANT FND 04/20/2010 [id number] / [id number] / Stent Eso Gw 22x70 [id number] - [id number] Implanted:Qty: 1 on 01/21/2008 at OR [facility] [place] N/A: Esophagus [employer] 04/12/2009 [id number] / / [id number] Depuy Uniplate 32 Implanted:Qty: 1 on 09/05/2008 at [place] [facility] [place] N/A: Spine Cervical TAMMY [employer] TAMMY DEPUY 1897--302 / / Depuy Uniplate Screw 14mm Implanted:Qty: 2 on 09/05/2008 at [place] [facility] [place] N/A: Spine Cervical TAMMY [employer] TAMMY DEPUY 1896--017 / / Depuy Lordotic Bengal Cage Implanted:Qty: 1 on 05/07/2010 at [place] [facility] [place] N/A: Neck [id number] / [id number] / Plate Zach 3 Level Ti 54mm - [id number] Implanted:Qty: 1 on 05/07/2010 at [place] [facility] [place] N/A: Neck JNJ : DEPUY SPINE [id number] / / Screw Zach Const St Ti 14mm - [id number] Implanted:Qty: 4 on 05/07/2010 at [place] [facility] [place] N/A: Neck JNJ : DEPUY SPINE [id number] / / Screw 3.5x14 Mntr Fa [id number] - [id number] Implanted:Qty: 8 on 05/07/2010 at [place] [facility] [place] N/A: Spine Cervical JNJ : [employer] [id number] / / Jarrell [id number] - [id number] Implanted:Qty: 1 on 05/07/2010 at [place] [facility] [place] N/A: Spine Cervical JNJ : [employer] [id number] / / Screw Inner Mntr [id number] - [id number] Implanted:Qty: 8 on 05/07/2010 at [place] [facility] [place] N/A: Spine Cervical JNJ : [employer] [id number] / / Envista Intraocular Lens Implanted:Qty: 1 on 03/10/2022 by Liang Marshall MD at OR [facility] Right: Eye BAUSCH & LOMB 08/13/2023 [id number] / [id number] / [id number] Envista Intraocular Lens Implanted:Qty: 1 on 03/24/2022 by Liang Marshall MD at OR [facility] Left: Eye BAUSCH & LOMB 07/13/2024 [id number] / [id number] / [id number] documented as of this encounter Visit Diagnoses Diagnosis 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 No Care Teams Fleet Driver Relationship Specialty Start Date End Date Jocelyne Desai DO [address] [place] [address] [place] [address] PCP - General Internal Medicine 11/09/16 documented as of this encounter
--- OUTSIDE RECORDS SUMMARY | 2024-01-29 17:57 | External Medical Summary | Summary of Care ---
Author Name Unknown Organization [facility] Address [address] [facility] [place] [address] Phone [phone] Care Team Providers Care Fisheries Manager Name Role Phone Jocelyne Desai Primary Care Provider + [phone] Reason for Visit * Reason Onset Date Comments Precert Future 11/03/2023 monoferric Encounter Details Date Type Department Care Team (Late st Contact Info) Description 11/03/2023 Telephone Hematology/Oncology Treatment, [place] [address] [place] [address] Nichelle Booker CRNP [address] [place] [address] Precert Future (monoferric) Allergies No known active allergiesdocumented as of [...] be different from the original. Good connectivity [facility] for wound care [phone] Televideo if needed. Problem Noted Date Diagnosed [...] ICD-10 update of inactive term PLATT RESEARCH OTHER*[id number] 02/20/2007 ADVANCE DIRECTIVE INFORMATION 01/19/2005 Overview: Yes, [...] 11/17/19 23 LUMBAGO 12/24/2002 05/09/2007 LOC PRIM [id number] 12/24/200208/13 DEGENERATIVE SKIN DISORD 12/24/2002 VERTEBRAL FX [...] Telephone Encounter - Cara Morales OSA - 11/03/2023 10:21 AM EDT Apt is scheduled * Telephone Encounter - Chante Tee RN - 11/03/2023 9:57 AM EDT Referral entered, sent to [facility]. Called patient, he verbalized understanding of iron infusion being tentatively ordered for after new patient appt Monday. Discussed that we can switch to alternate product if OOP cost is determined to be high. * Telephone Encounter - Chante Tee RN - 11/03/2023 8:34 AM EDT Order received for monoferric. [place] plan built and routed for signature. Waiting for auth. Patient is coming Sunday 11/05 for new patient appt. Message sent in STAT precert channel. Scheduling: can you please add patient on 11/05 at 2:30pm for 2 hour appt "monoferric (if auth is back)"? Thanks! documented in this encounter Plan of Treatment Upcoming Encounters Date Type Department Care Team (Late st Contact Info) Description 11/06/2023 1:30 PM EDT Office Visit Hematology/Oncology [address] [place] [phone] Monse Coates MD [address] [place], [place] [address] [phone] 11/06/2023 2:30 PM EDT Hem/Onc Treatment Hematology/Oncology Treatment, [place] [address] [facility] [place] [phone] Kayley, Chair [address] Hem On[address] [place] [address] 11/13/2023 6:30 AM EDT Anticoagulation Centralized Clinical Pharmacy Services, Ilya Lafleur [address] [place] [address] [place] [address] [place] [address] 11/20/2023 2:00 PM EDT Office Visit Nephrology, [facility] [address] [place] [address] Jennifer Agustin MD [address] [place] [address] 01/19/2024 9:00 AM EST Office Visit Gastroenterology [address] [place] [address] Moon Avila CRNP [address] [place] [address] 02/20/2024 12:30 PM EST Nurse Only Ancillary [address] [place] [address] [place], Nurse Annual [address] [place] [address] 03/08/2024 2:30 PM EST Office Visit Family Medicine [address] [place] [phone] Jocelyne Desai, [address] [place] [address] Scheduled Procedures Name Priority Associated Diagnoses Date/Ti [...] this encounter Medical Devices Implanted Type Area Greige Goods Marker Device Identifier Shelf Expiration Date Model / Serial / Lot Shaft Fibula 6cm [id number] - [id number] Implanted:Qty: 1 on 09/05/2008 at OR [facility] [place] Tissue - Human N/A: Spine Cervical MUSCULOSKELETAL TRANSPLANT FND 04/20/2010 [id number] / [id number] 0P / Stent Eso Gw 22x70 03742-095 - [id number] Implanted:Qty: 1 on 01/21/2008 at OR [facility] N/A: Esophagus [employer] 04/12/2009 [id number] / / [id number] Depuy Uniplate 32 Implanted:Qty: 1 on 09/05/2008 [...] Plate Zach 3 Level Ti 54mm - [id number] Implanted:Qty: 1 on 05/07/2010 at OR [facility] N/A: Neck JNJ : DEPUY SPINE [id number] / / Screw Zach Const St Ti 14mm - [id number] Implanted:Qty: 4 on 05/07/2010 at OR [facility] N/A: Neck JNJ : DEPUY SPINE [id number] 14 / / Screw 3.5x14 Mntr Fa [id number] - [id number] Implanted:Qty: 8 on 05/07/2010 at OR [facility] N/A: Spine Cervical JNJ : [employer] [id number] / / Jarrell [id number] - [id number] Implanted:Qty: 1 on 05/07/2010 at OR [facility] N/A: Spine Cervical JNJ : [employer] [id number] / / Screw Inner Mntr [id number] - [id number] Implanted:Qty: 8 on 05/07/2010 at OR [facility] N/A: Spine Cervical JNJ : ETH[employer] [id number] / / Envista Intraocular Lens Implanted:Qty: 1 on 03/10/2022 by Liang Marshall MD at OR [facility] Right: Eye BAUSCH & LOMB 08/13/2023 [id number] / [id number] / [id number] Envista Intraocular Lens Implanted:Qty: 1 on 03/24/2022 by Liang Marshall MD at OR [facility] Left: Eye BAUSCH & LOMB 07/13/2024 [id number] / [id number] / [id number] documented as of this encounter Advance Directives Documents on File Type Date Recorded Patient 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 No Care Teams Fisheries Manager Relationship Specialty Start Date End Date Jocelyne Desai DO [address] [place] [address] [place] [address] PCP - General Internal Medicine 11/09/16 documented as of this encounter
--- OUTSIDE RECORDS SUMMARY | 2024-01-29 17:57 | External Medical Summary | Summary of Care ---
Author Name Unknown Organization [facility] Address [address] [facility] 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 * Evaluate & Treat - Unlimited Visits (Within 10 days (routine)) - Authorized Specialty Diagnoses / Procedures Referred By Contzahida t Referred To Contact Hematology/Oncology / Hematology Oncology Diagnoses 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) Jocelyne Desai DO [address] [place] [address] [place] [address] Referral ID Status Reason Start Date Expiration Date Visits Requested Visits Authorized [id number] Authorized Specialty Services Required 11/01/2023 999 [id number] Encounter Details Date Type Department Care Team (Late st Contact Info) Description 11/06/2023 1:30 PM EDT Office Visit Hematology/Oncology Cely Zaldivar [place] [address] [facility] [place] [phone] Monse Coates MD [address] [facility] [place] [phone] 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)*; Iron deficiency anemia due to chronic blood loss; H/O gastric bypass Allergies No known active [...] connectivity [facility] for wound care [phone] Televideo if needed. Problem Noted Date Diagnosed [...] in chart from [facility] podiatry they were unable to [...] ICD-10 update of inactive term PLATT RESEARCH OTHER*[id number] 02/20/2007 ADVANCE DIRECTIVE INFORMATION 01/19/2005 Overview: Yes, [...] 11/17/19 23 LUMBAGO 12/24/2002 05/09/2007 LOC PRIM [id number] 12/24/200208/13 DEGENERATIVE SKIN DISORD 12/24/2002 VERTEBRAL FX [...] MCG/0.3 mL, 12 YRS AND ABOVE, [facility] 11/16/2022 Covid-19, Mrna, Lnp-s, Pf, B ivalent, [...] Sign Reading Time Taken Comments Blood Pressure 132/85 11/06/2023 1:54 PM EDT Pulse 94 11/06/2023 1:54 PM EDT Temperature 36.4 C (97.5 F) 11/06/2023 1:54 PM ED T Respiratory Rate - - Oxygen Saturation 98% 11/06/2023 1:54 PM EDT Inhaled Oxygen Concentration - - Weight 96.5 kg (212 lb 12.8 oz) 11/06/2023 1:54 PM EDT Height 180.3 cm (5' 11") 11/06/2023 1:54 PM EDT Body Mass Index 29.68 11/06/2023 1:54 PM EDT documented in this encounter Patient Instructions * Patient Instructions* Monse Coates MD - 11/06/2023 2:55 PM EDT Dear Mr. Lg Cooley PLAN OF CARE DISCUSSED ON 11/06/2023 : IV iron today See me back for follow up on 11/20/2023 after your appointment with Dr. Mccauley Please get your labs done 1 week before the appointment PROCRIT cannot be given today, however, we should be able to give it to you on 11/20/2023. documented in this encounter Progress Notes * Monse Coates MD - 11/06/2023 2:01 PM EDT Hematology New Consult Note Referring Provider: Jocelyne Desai DO Primary Care Provider: Jocelyne Desai DO Reason for Consult: Anemia Date of consultation: 11/06/2023 HISTORY OF PRESENT ILLNESS Lg Cooley is a 73 year old male seen for Hematology-Oncology consultation for further evaluation of abnormal blood counts. His most recent labs performed on 11/01/2023 shows hemoglobin 8.7 grams/deciliter, hematocrit 28%, MCV 93.6 (within normal limits), RDW 19% ( higher than the normal range of 11.5-15.5%) and retic count 1.2%. WBC and platelet count within normal limits. Iron panel shows evidence of iron deficiency with serum iron 25, TIBC 300, TSAT 8% (normal range 15-55%), ferritin 121. Patient has a history of persistent iron-deficiency. Vitamin B12 and folate normal. Patient has CKD with a current creatinine of 4.3 on 11/01/2023, there has been significant worsening in the creatinine since 06/28/2023 (creatinine 3.0) before which his baseline creatinine was around 1.5 -1.7 until 02/23/2023 when his creatinine was 1.7. Has known hyperparathyroidism (possibly associated with the CKD). Component Ref Range & Units 5 d ago 2 mo ago 3 mo ago Iron 45 - 176 ug/dL 25 19 30 Iron Binding Capacity 250 - 425 ug/dL 300 311 270 Transferrin Saturation Percent 15 - 55 % 8 6 11 PTH Latest Ref Rng 15 - 65 pg/mL 01/17/2019 157 (H) 08/13/2019 143 (H) 04/06/2020 188 (H) 07/28/2020 123 (H) 09/29/2021 170 (H) 06/22/2022 129 (H) 02/23/2023 197 (H) 07/18/2023 280 (H) 11/01/2023 361 (H) CREATININE Latest Ref Rng 0.6 - 1.2 mg/dL 01/17/2019 1.5 (H) 05/20/2019 1.35 (E) 06/06/2019 1.48 ! (E) 06/26/2019 1.4 (H) 08/13/2019 1.5 (H) 10/17/2019 1.6 (H) 11/18/2019 1.7 (H) 04/06/2020 1.6 (H) 07/28/2020 1.4 (H) 10/16/2020 1.4 (H) 05/12/2021 1.5 (H) 09/29/2021 1.7 (H) 04/13/2022 1.48 ! (E) 11/16/2022 1.4 (H) 01/17/2023 1.7 (H) 02/23/2023 1.7 (H) 06/28/2023 3.0 (H) 07/03/2023 2.5 (H) 07/07/2023 2.6 (H) 07/18/2023 2.1 (H) 07/26/2023 3.91 ! (E) 07/31/2023 3.88 ! (E) 08/23/2023 3.1 (H) 08/28/2023 3.33 ! (E) 3.33 ! (E) 09/04/2023 3.26 ! (E) 09/26/2023 4.0 (H) 10/02/2023 4.1 (H) 10/20/2023 4.28 ! (E) 11/01/2023 4.3 (H) Past Medical History: Diagnosis Date Amputated toe ([facility]) 05/06/11 2nd toe right foot- no osteomyelitis Atrial fibrillation ([facility]) Atrial fibrillation (HCC) Atrial fibrillation ([facility]) B12 deficiency 12/21/2015 Background diabetic retinopathy(362.01) Cervical spinal stenosis 2007 Cervical spondylosis with myelopathy Cervical spondylosis with myelopathy 2008 Chronic atrial fibrillation ([facility]) 01/12/2015 Closed fracture of unspecified part [...] C4-5 DM neuropathy, type II diabetes mellitus (HCC) 07/30/2012 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) DIABETES TYPE II W RENAL MANIFEST DM type 2, goal A1c below 7 DM type 2, not at goal ([facility]) 1998 Dyslipidemia, goal LDL below 100 [...] 04/20/2005 Lumbago Microalbuminuric diabetic nephropathy ([facility]) 06/03/2014 Mixed dyslipidemia Morbid obesity, BMI not known ([facility]) Other B-complex deficiencies Other hammer toe (acquired) 11/13/2004 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 Paroxysmal SVT (supraventricular tachycardia) ([facility]) 04/23/2013 Perforation of esophagus 01/21/08 PERFORATED ESOPHAGUS 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 ([facility]) 07/30/2012 Peripheral sensory neuropathy 01/12/2015 Plantar fibromatosis 04/20/2005 Primary localized osteoarthrosis, lower leg OA of knees PVD (peripheral vascular disease) ([facility]) 11/09/2011 PVD (peripheral vascular disease) ([facility]) 11/09/2011 In a combination Rupture of flexor tendons of hand and wrist 1998 severed tendon index finger right hand Severe nonproliferative diabetic retinopathy(362.06) bilateral Spinal stenosis of lumbar region without neurogenic claudication Spinal stenosis of lumbar region without neurogenic claudication Toe osteomyelitis, right ([facility]) 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[facility]) 01/12/2015 Venous insufficiency Venous stasis of lower extremity 06/17/2013 Vitamin D deficiency 10/16/07 Vitamin D deficiency Surgical History: Past Surgical History: Procedure Laterality Date AMPUTATION OF TOE 05/06/2011 2nd toe right foot - no osteomyelitis AMPUTATION OF TOE 08/2020 big toe on right foot COLONOSCOPY, DIAGNOSTIC (RECTUM) 09/23/2010 normal COLONOSCOPY, DIAGNOSTIC (RECTUM) 09/08/2021 normal, repeat 10 yrs / COLONOSCOPY FLEXIBLE PROXIMAL DIAGNOSTIC performed by Janice Shoemaker DO atENDOSCOPY [facility] CYSTOSCOPY 02/16/2015 EGD, FLEXIBLE, DIAGNOSTIC 09/20/2007 UPPER GI ENDOSCOPY DIAGNOSTIC performed by KAUSHAL WHITE at [facility] EGD, FLEXIBLE, DIAGNOSTIC 01/04/2008 UPPER GI ENDOSCOPY DIAGNOSTIC performed by KAUSHAL WHITE at OR [facility] EGD, FLEXIBLE, DIAGNOSTIC 03/21/2008 UPPER GI ENDOSCOPY DIAGNOSTIC performed by KAUSHAL WHITE at OR [facility] EGD, FLEXIBLE, DIAGNOSTIC N/A 09/14/2023 ESOPHAGOGASTRODUODENOSCOPY (EGD), FLEXIBLE, TRANSORAL, DIAGNOSTIC performed by Amarilys Jaquez MD at OR [facility] EGD, FLEXIBLE, TRANSENDOSCOPIC DILATION <30MM 01/04/2008 UPPER GI ENDOSCOPY BALLOON DILATION LESS THAN 30MM performed by KAUSHAL WHITE at OR [facility] EXPLORATION OF ABDOMEN 01/21/2008 EXPLORATORY LAPAROTOMY performed by KAUSHAL WHITE at OR [facility] FORM SKIN PEDICLE, TRUNK 02/14/1956 to right forearm INFORMATION Gum surgery/cyst removed INFORMATION 02/13/2005 ORAL CYST REMOVAL INJECTION OF EYE DRUG Right 12/30/2021 # 1 Avastin OD, Dr. Hodge INJECTION OF EYE DRUG Right 04/01/2022 # 2 Avastin OD, Dr. Hodge INSERT/REPLACE PACEMAKER,ATRIAL/VENTRICULAR 04/11/2013 04/11/2013 placement of siingle-chamber pacemaker via left subclavian approach [facility] DR.Mar Gacria - symptomatic bradycardia LAPAROSCOPE PROCEDURE, LIVER 09/20/2007 UNLISTED LAPAROSCOPIC PROCEDURE LIVER performed by KAUSHAL WHITE at OR [facility] LAPAROSCOPIC GASTRIC BYPASS/BHUPINDER-EN-Y 09/20/2007 LAPAROSCOPIC GASTRIC RESTRICTIVE BYPASS BHUPINDER EN Y performed by KAUSHAL WHITE at OR [facility] LASER SURGERY OF INNER EYE STRANDS Bilateral "about 20- 25 years ago" MICROSURGERY ADD-ON 05/07/2010 MICROSURGICAL SURGERY REQUIRING MICROSCOPE LISTED SEPARATELY performed by GAVIN BHARDWAJ at OR [facility] MRI FOOT WO CONTRAST 04/06/2011 Osteomyelitis of the distal phalanx of the 2nd digit. Reactive edema versus early osteomyelitis of the 2nd middle phalanx NECK SPINE FUSION (CERV, BELOW C2) 09/05/2008 ARTHRODESIS SPINE ANTERIOR CERVICAL performed by GAVIN BHARDWAJ at OR [facility] NECK SPINE FUSION (CERV, BELOW C2) 05/07/2010 ARTHRODESIS SPINE ANTERIOR CERVICAL performed by GAVIN BHARDWAJ at OR [facility] NECK SPINE FUSION (CERV, BELOW C2) 05/07/2010 ARTHRODESIS SPINE POSTERIOR CERVICAL performed by GAVIN BHARDWAJ at OR [facility] OTHER (INFORMATION) ACT 112 SIGNED 06/11/20 DR. HODGE OTHER (INFORMATION) Bilateral AVASTIN OU CONSENT DR. HODGE/MITESH EXP. 12/30/22 PACEMAKER INSERTION PER 01/18/2023 Dr. Rodriguez [facility] PARTIAL AMPUTATION OF TOE Right 12/2020 3rd toe and release tendon of other toes at the same time. REMOVAL OF TONSILS, AGE 12+ REMOVE ADDED VERTEBRAL SEG, NECK 05/07/2010 VERTEBRAL CORPECTOMY CERVICAL EACH ADDITIONAL LEVEL performed by GAVIN BHARDWAJ at OR [facility] REMOVE CATARACT, INSERT LENS PROSTH Right 03/10/2022 right EXTRACAPSULAR CATARACT REMOVAL WITH INTRAOCULAR LENS performed by Liang Marshall MD at OR [facility] REMOVE CATARACT, INSERT LENS PROSTH Left 03/24/2022 left EXTRACAPSULAR CATARACT REMOVAL WITH INTRAOCULAR LENS performed by Liang Marshall MD at OR [facility] REMOVE NECK SPINE DISK, SINGLE 09/05/2008 DISKECTOMY ANTERIOR CERVICAL performed by GAVIN BHARDWAJ at OR [facility] REMOVE NECK SPINE DISK, SINGLE 05/07/2010 DISKECTOMY ANTERIOR CERVICAL performed by GAVIN BHARDWAJ at OR [facility] REMOVE VERTEBRAL BODY, NECK, SINGLE 05/07/2010 VERTEBRAL CORPECTOMY ANTERIOR CERVICAL performed by GAVIN BHARDWAJ at OR [facility] REPAIR FINGER/HAND TENDON, EACH & right index finger tendon transfer from toe - [facility]. SPINE FIX DEV, ANT, 4-7 SEG, INSERT 05/07/2010 ANTERIOR INSTRUMENTATION 4 TO 7 VERTEBRAL SEGMENTS performed by GAVIN BHARDWAJ at OR [facility] SPINE SEG FIX, POST, 3-6 SEG, INSERT 05/07/2010 POSTERIOR SPINE SEGMENTAL INSTRUMENTATION 3 TO 6 PSF performed by GAVIN BHARDWAJ at OR [facility] UPPR GI ENDOSCOPY W/STENT 01/21/2008 UPPER GI ENDOSCOPY WITH TRANSENDOSCOPIC STENT PLACEMENT performed by KAUSHAL WHITE at OR [facility] Medications: Current Outpatient Medications Medication Sig Dispense [...] UNIT) Oral Tablet Chewable Take by mouth. Doxycycline Hyclate 100 MG Oral Tablet Delayed Release Take 1 Tablet by mouth in the morning and 1 Tablet before bedtime. Torsemide 20 MG Oral Tablet (Demadex) Take 1 Tablet by mouth in the morning. 100 Tablet 1 Potassium Chloride Candi ER 20 MEQ Oral Tablet Extended Release Take 1 Tablet by mouth in the morning. 100 Tablet 1 No current facility-administered medications for this visit. PMH, PSH, Allergies, Social history, Family history reviewed. Review of Systems: negative except as noted in HPI. Objective : Filed Vitals: 11/06/23 1354 BP: 132/85 Pulse: 94 Temp: 36.4 C (97.5 F) TempSrc: Tympanic SpO2: 98% Weight: 96.5 kg (212 lb 12.8 oz) Height: 1.803 m (5' 11") Physical Exam: GEN: Well-appearing male in no acute distress. HEENT: Moist mucous membranes, normocephalic, no conjunctival injection, sclera anicteric. LYMPH: No palpable cervical, submandibular, axillary, or supraclavicular LAD. CV: RRR, No murmurs, rubs, or gallops. LORRI: CTAB, breathing unlabored, no wheezes, rhonchi. AB: Abdomen soft, round, nondistended, nontender to palpation. No palpable hepatomegaly or splenomegaly. NEURO: A&Ox3, CNII-XII grossly intact. PSY: Appropriate affect, reasonable insight and judgment. Extremities: Bilateral extremities without swelling or edema, equal in size, without erythema. Skin: Dry, warm, no rashes. Test Results: reviewed. Assessment ICD-10-CM 1. 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) N18.4 D63.1 2. Iron deficiency anemia due to chronic blood loss D50.0 3. H/O gastric bypass Z98.84 Recommendations: Recommended treatment: Intravenous iron therapy to maintain TSAT> 30% and CHARLES (erythropoietin support) Intravenous iron therapy with IV Monoferric 1,000 mg has been ordered, the patient will be receiving it today on 11/06/2023. PROCRIT/ RETACRIT to start at the patient's next appointment on 11/20/2023. PLAN OF CARE /patient instructions discussed with the patient on 11/06/2023 : Recommended treatment: Intravenous iron therapy to maintain TSAT> 30% and CHARLES (erythropoietin support) IV iron today- IV Monoferric 1,000 mg to be given on 11/06/2023. Patient will follow up with me on 11/20/2023 after your appointment with Dr. Mccauley Please get your labs done 1 week before the appointment. PROCRIT/ RETACRIT cannot be given today on 11/06/2023, however, we should be able to give it to youat your next appointment on 11/20/2023. The patient verbalized understanding and agreement with the above plan of care and all of the patient's questions were answered. Monse Coates MD Hematology/Oncology [address] [phone] documented in this encounter Nursing Notes * Estefania Henderson, INSIDE SALES ENGINEER - 11/06/2023 1:55 PM EDT Patient identifed by name and [...] it for you? ALREADY ACTIVE Filed Vitals: 11/06/23 1354 BP: 132/85 Pulse: 94 Temp: 36.4 C (97.5 F) TempSrc: Tympanic SpO2: 98% Weight: 96.5 kg (212 lb 12.8 oz) Height: 1.803 m (5' 11") Patient was instructed to not get up [...] [facility], Ilya Lafleur [address] [place] [address] [place] [address] [place] [address] 11/20/2023 1:00 PM EDT Office Visit Hematology/Oncology [facility] [place] [address] [facility] [place] [phone] Monse Coates MD [address] [place] [address] [place] [phone] 11/20/2023 2:00 PM EDT Office Visit Nephrology, [facility] [address] [facility] [place] [phone] Jennifer Agustin MD [address] [facility] [place] [phone] 01/19/2024 9:00 AM EST Office Visit Gastroenterology [address] [place] [address] Moon Avila CRNP [address] [place] [address] 02/20/2024 12:30 PM EST Nurse Only Ancillary [address] [place] [address] [place], Nurse Annual Wellness [address] [place] [address] [place] [address] 03/08/2024 2:30 PM EST Office Visit Family Medicine [address] [place] [phone] [address] [place] [address] Scheduled Procedures Name Priority Associated Diagnoses Date/Ti [...] exists Depression Screening 10/30/2024 10/31/2023 Albumin/Creatinine Ratio 10/31/202410/31/2 024, 07/18/2023, 11/16/2022, Additional history exists DTap/Tdap [...] this encounter Medical Devices Implanted Type Area Alemite Operator Device Identifier Shelf Expiration Date Model / Serial / Lot Shaft Fibula 6cm [id number] - [id number] Implanted:Qty: 1 on 09/05/2008 at OR [facility] Tissue - Human N/A: Spine Cervical MUSCULOSKELETAL TRANSPLANT FND 04/20/2010 [id number] / [id number] 0P / Stent Eso Gw 22x70 [id number] - [id number] Implanted:Qty: 1 on 01/21/2008 at OR [facility] N/A: Esophagus [employer] 04/12/2009 [id number] / / [id number] Depuy Uniplate 32 Implanted:Qty: 1 on 09/05/2008 [...] Plate Zach 3 Level Ti 54mm - [id number] Implanted:Qty: 1 on 05/07/2010 at OR [facility] N/A: Neck JNJ : DEPUY SPINE [id number] / / Screw Zach Const St Ti 14mm - [id number] Implanted:Qty: 4 on 05/07/2010 at OR [facility] N/A: Neck JNJ : DEPUY SPINE [id number] / / Screw 3.5x14 Mntr Fa [id number] - [id number] Implanted:Qty: 8 on 05/07/2010 at OR [facility] N/A: Spine Cervical JNJ : [employer] [id number] / / Jarrell [id number] - [id number] Implanted:Qty: 1 on 05/07/2010 at OR [facility] N/A: Spine Cervical JNJ : [employer] [id number] / / Screw Inner Mntr [id number] - [id number] Implanted:Qty: 8 on 05/07/2010 at OR [facility] N/A: Spine Cervical JNJ : [employer] [id number] / / Envista Intraocular Lens Implanted:Qty: 1 on 03/10/2022 by Liang Marshall MD at OR [facility] Right: Eye [employer]OM[employer] 08/13/2023 [id number] / [id number] / [id number] Envista Intraocular Lens Implanted:Qty: 1 on 03/24/2022 by Liang Marshall MD at OR [facility] Left: Eye BAUSCH [employer] LOMB 07/13/2024 [id number] / [id number] / [id number] documented as of this encounter Visit Diagnoses Diagnosis 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)- Primary Iron deficiency anemia due to chronic blood loss Iron deficiency anemia secondary to blood loss (chronic) H/O gastric bypass Bariatric surgery status documented in this encounter Advance Directives Documents on File Type Date Recorded Patient Lead Security Officer Expl anation POLST 01/26/2021 [place] [facility] FOR [...] Power of Attor andrew? No Care Teams Marketing Intelligence Manager Relationship Specialty Start Date End Date Jocelyne Desai DO [address] [place] [address] [place] [address] PCP - General Internal Medicine 11/09/16 documented as of this encounter
--- OUTSIDE RECORDS SUMMARY | 2024-01-29 17:57 | External Medical Summary | Summary of Care ---
Author Name Unknown Organization [facility] Address [address] [facility] [place] [address] Phone [phone] Care Team Providers Care Room Attendants Name Role Phone Jocelyne Desai Primary Care Provider [phone] Reason for Visit * Reason Onset Date Comments Outpatient Testing 11/07/2023 Encounter Details Date Type Department Care Team (Late st Contact Info) Description 11/07/2023 Telephone Nephrology, Cely Zaldivar [address] [place] [address] Jennifer Agustin MD [address] [facility] [address] Outpatient Testing Allergies No known active allergiesdocumented as of this encounter (statuses as of 11/07/2023) Medications Medication Sig Dispensed Refills Start Date [...] as of this encounter (statuses as of 11/07/2023) Active Problems Patient Care Coordination No te Formatting of this note migh t be different from the original. Good connectivity [facility] for wound care [phone] Televideo if needed. 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 SPINAL STENOSIS-LUMBAR 09/23/2002 Vitamin D deficiency Cervical spinal stenosis documented as of this encounter (statuses as of 11/07/2023) Resolved Problems Problem Noted Date Diagnosed Date Resolved Date Chronic kidney disease (CKD) , stage IV (severe) 09/27/2023 10/26/2023 Depression, unspecified 11/09/202104/14 Depression, unspecified 11/09/2021 1005/2022 Cellulitis of right leg 07/13/202105/2022 Last Assessment & Plan: Suspect this could be early/localized. Will treat with 7 days antibiotic. If pt cannot be reassess by Dr. Braxton office early next week will need [facility] provider recheck Multiple and open [...] 11/17/19 23 LUMBAGO 12/24/2002 05/09/2007 LOC PRIM [id number] 12/24/200208/13 DEGENERATIVE SKIN DISORD 12/24/2002 VERTEBRAL FX [...] as of this encounter (statuses as of 11/07/2023) Immunizations Name Administration Dates Next Due COVID-19 [...] Telephone Encounter - Libby Hurd RN - 11/07/2023 9:14 AM EDT Additional orders placed. Pt was already aware to complete tests prior to appointment. * Telephone Encounter - Libby Hurd RN - 11/07/2023 9:09 AM EDT ----- Message from Jennifer Agustin MD sent at 07/19/2023 2:41 PM EDT ----- For oct visit needs bmp, albumin, cbc, t sat, pth, 25 ohd, uacm, acr documented in this encounter Plan of Treatment Upcoming Encounters Date Type Department Care Team (Late st Contact Info) Description 11/13/2023 6:30 AM EDT Anticoagulation Centralized Clinical Pharmacy Services, [facility] Miquel [address] [place] [address] [place] [address] [facility], [address] [place] [address] 11/20/2023 1:00 PM EDT Office Visit Hematology/Oncology [facility] [address] [facility] [place] [phone] Monse Coates MD 400 [facility] [place] [phone] 11/20/2023 2:00 PM EDT Office Visit Nephrology, [facility] [address] [facility] [place] [address] Jennifer Agustin MD [address] [facility] [place] [address] 01/19/2024 9:00 AM EST Office Visit Gastroenterology [address] [place] [address] Moon Avila CRNP [address] [facility] [place] [address] 02/20/2024 12:30 PM EST Nurse Only Ancillary [address] [place] [address] [place], Nurse Annual Wellness [address] [place] [address] [place] [address] 03/08/2024 2:30 PM EST Office Visit Family Medicine [address] [place] [phone] Jocelyne Desai, [address] [place] [address] Scheduled Orders Name Type Priority Associated Diagnoses Orde r Schedule BASIC METABOLIC PANEL Lab Routine 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 kidney disease (HCC) Expected: 11/08/2023 (Approximate), Expires: 11/06/2024 ALBUMIN Lab Routine 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 kidney disease (HCC) Expected: 11/08/2023 (Approximate), Expires: 11/06/2024 CBC Lab Routine 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 kidney disease (HCC) Expected: 11/08/2023 (Approximate), Expires: 11/06/2024 IRON SCREEN, INCLUDING TIBC Lab Routine 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 kidney disease (HCC) Expected: 11/08/2023 (Approximate), Expires: 11/06/2024 PTH Lab Routine 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 kidney disease (HCC) Expected: 11/08/2023 (Approximate), Expires: 11/06/2024 25-HYDROXY VITAMIN D Lab Routine 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 kidney disease (HCC) Vitamin D deficiency Expected: 11/08/2023 (Approximate), Expires: 11/06/2024 URINALYSIS WITH MICROSCOPIC EXAM Lab Routine 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 kidney disease (HCC) Expected: 11/08/2023 (Approximate), Expires: 11/06/2024 ALBUMIN / CREATININE RATIO, URINE Lab Routine 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 kidney disease (HCC) Expected: 11/08/2023 (Approximate), Expires: 11/06/2024 Scheduled Procedures Name Priority Associated Diagnoses Date/Ti [...] this encounter Medical Devices Implanted Type Area Adjunct Psychology Instructor Device Identifier Shelf Expiration Date Model / Serial / Lot Shaft Fibula 6cm [id number] - [id number] Implanted:Qty: 1 on 09/05/2008 at [place] [facility] [place] Tissue - Human N/A: Spine Cervical MUSCULOSKELETAL TRANSPLANT FND 04/20/2010 [id number] / [id number] / Stent Eso Gw 22x70 [id number] - [id number] Implanted:Qty: 1 on 01/21/2008 at [place] [facility] [place] N/A: Esophagus [employer] 04/12/2009 [id number] / / [id number] Depuy Uniplate 32 Implanted:Qty: 1 on 09/05/2008 [...] Plate Zach 3 Level Ti 54mm - [id number] Implanted:Qty: 1 on 05/07/2010 at [place] [facility] [place] N/A: Neck JNJ : DEPUY SPINE [id number] / / Screw Zach Const St Ti 14mm - [id number] Implanted:Qty: 4 on 05/07/2010 at [place] [facility] [place] N/A: Neck JNJ : DEPUY SPINE [id number] / / Screw 3.5x14 Mntr Fa [id number] - [id number] Implanted:Qty: 8 on 05/07/2010 at [place] [facility] [place] N/A: Spine Cervical JNJ : ETHICON C[employer]ATIONS [id number] / / Jarrell [id number] - [id number] Implanted:Qty: 1 on 05/07/2010 at [place] [facility] [place] N/A: Spine Cervical JNJ : ETHICON CARDIOVATIONS [id number] / / Screw Inner Mntr [id number] - [id number] Implanted:Qty: 8 on 05/07/2010 at [place] [facility] [place] N/A: Spine Cervical JNJ : ETHICON CARDIOVATIONS [id number] / / Envista Intraocular Lens Implanted:Qty: 1 on 03/10/2022 by Liang Marshall MD at OR [facility] Right: Eye BAUSCH & LOMB 08/13/2023 [id number] / [id number] / [id number] Envista Intraocular Lens Implanted:Qty: 1 on 03/24/2022 by Liang Marshall MD at OR [facility] Left: Eye BAUSCH & LOMB 07/13/2024 [id number] / [id number] / [id number] documented as of this encounter Visit Diagnoses Diagnosis 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 kidney disease (HCC)- Primary Vitamin D deficiency Unspecified vitamin D deficiency documented in this encounter Advance Directives Documents on File Type Date Recorded Patient Adult Educator Expl anation POLST 01/26/2021 [place] OR [facility] FOR LIFE-SUSTAINING TREATMENT [...] Power of Attor andrew? No Care Teams Room Attendants Relationship Specialty Start Date End Date Jocelyne Desai DO [address] [place] [address] [place] [phone] PCP - General Internal Medicine 11/09/16 documented as of this encounter
--- OUTSIDE RECORDS SUMMARY | 2024-01-29 17:57 | External Medical Summary | Summary of Care ---
Author Name Unknown Organization [facility] [address] [facility] [address] Phone [phone] Care Team Providers Care Service Order Dispatcher Name Role Phone DesaiElissaJocelynejohn Cunninghambritany ASHTON Primary Care Provider [phone] Reason for Visit * Reason Comments IV Therapy Monoferric * Episode Based Medications (Routine) - Authorized Specialty Diagnoses / Procedures Referred By Mingo t Referred To Contact Diagnoses Iron deficiency anemia due to chronic blood loss 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) H/O gastric bypass Procedures NE INJ. FE DERISOMALTOSE 10 MG Nichelle Booker CRNP [address] [facility] [place] [address] Anc Hem/Onc [address] [address] Referral ID Status Reason Start Date Expiration Date V isits Requested Visits Authorized [id number] Authorized 11/03/2023 02/12/2099 [id number] Encounter Details Date Type Department Care Team (Latest Contact Info) Description 11/06/2023 2:30 PM EDT Hem/Onc Treatment Hematology/Oncology Treatment, [address] [phone] [place], Chair 11 Hem On[place] [address] [place] [address] Iron deficiency anemia due to chronic blood loss*; 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); H/O gastric bypass Allergies No known active allergiesdocumented as of this encounter (statuses as of 11/06/2023) Medications Medication Sig Dispensed Refills Start Date [...] as of this encounter (statuses as of 11/06/2023) Active Problems Patient Care Coordination No te Formatting of this note migh t be different from the original. Good connectivity [facility] for wound care [phone] Televideo if needed. 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 SPINAL STENOSIS-LUMBAR 09/23/2002 Vitamin D deficiency Cervical spinal stenosis documented as of this encounter (statuses as of 11/06/2023) Resolved Problems Problem Noted Date Diagnosed Date [...] 11/17/19 23 LUMBAGO 12/24/2002 05/09/2007 LOC PRIM [id number] 12/24/200208/13 DEGENERATIVE SKIN DISORD 12/24/2002 VERTEBRAL FX [...] as of this encounter (statuses as of 11/06/2023) Immunizations Name Administration Dates Next Due COVID-19 mRNA, LNP-s, No Pre serve, 2-Dose Series (Moderna) 03/19/2020 COVID-19 mRNA, LNP-s, No Pre serve, 2-Dose Series (Pfizer) 02/16/2021,04/09/2020,03/19/2020 COVID-19, MRNA-LNP, 23-24, P F, 30 MCG/0.3 mL, 12 YRS AND ABOVE, IM (PulpWorks-ComirnatPiAuto) 11/16/2022 Covid-19, Mrna, Lnp-s, Pf, B ivalent, [...] Anticoagulation Centralized Clinical Pharmacy Services, Ilya Lafleur [address] [place] [address] [place] [address] [place] [address] 11/20/2023 1:00 PM EDT Office Visit Hematology/Oncology [facility] [address] [place] [phone] Monse Coates MD [address] [place] [phone] 11/20/2023 2:00 PM EDT Office Visit Nephrology, [facility] [address] [place] [address] Jennifer Agustin MD [address] [place] [address] 01/19/2024 9:00 AM EST Office Visit Gastroenterology [address] [place] [address] Moon Avila CRNP [address] [place] [address] 02/20/2024 12:30 PM EST Nurse Only Ancillary [address] [place] [address] [place], Nurse Annual [address] [place] [address] 03/08/2024 2:30 PM EST Office Visit Family Medicine [address] [place] [phone] Jocelyne Desai [address] [place] [address] Scheduled Procedures Name Priority Associated Diagnoses Date/Ti [...] this encounter Medical Devices Implanted Type Area Processor Solid Propellant Device Identifier Shelf Expiration Date Model / Serial / Lot Shaft Fibula 6cm [id number] - [id number] Implanted:Qty: 1 on 09/05/2008 at [place] [facility] [place] Tissue - Human N/A: Spine Cervical MUSCULOSKELETAL TRANSPLANT FND 04/20/2010 [id number] / [id number] 0P / Stent Eso Gw 22x70 [id number] - [id number] Implanted:Qty: 1 on 01/21/2008 at OR [facility] [place] N/A: Esophagus [employer]US INC 04/12/2009 [id number] / / [id number] Depuy Uniplate 32 Implanted:Qty: 1 on 09/05/2008 at OR [facility] [place] N/A: Spine Cervical TAMMY & TAMMY DEPUY 302 / / Depuy Uniplate Screw 14mm Implanted:Qty: 2 on 09/05/2008 at OR [facility] [place] N/A: Spine Cervical TAMMY & TAMMY DEPUY 017 / / Depuy Lordotic [place] Cage Implanted:Qty: 1 on 05/07/2010 at OR [facility] [place] N/A: Neck [id number] / [id number] / Plate Zach 3 Level Ti 54mm - [id number] Implanted:Qty: 1 on 05/07/2010 at OR [facility] [place] N/A: Neck JNJ : DEPUY SPINE [id number] / / Screw Zach Const St Ti 14mm - [id number] Implanted:Qty: 4 on 05/07/2010 at OR [facility] [place] N/A: Neck JNJ : DEPUY SPINE [id number] 14 / / Screw 3.5x14 Mntr Fa [id number] - [id number] Implanted:Qty: 8 on 05/07/2010 at OR [facility] [place] N/A: Spine Cervical JNJ : ETHICON CARDIOVATIONS [id number] / / Jarrell [id number] - [id number] Implanted:Qty: 1 on 05/07/2010 at OR [facility] [place] N/A: Spine Cervical JNJ : ETHICON CARDIOVATIONS [id number] / / Screw Inner Mntr [id number] - [id number] Implanted:Qty: 8 on 05/07/2010 at OR [facility] [place] N/A: Spine Cervical JNJ : ETHICON CARDIOVATIONS [id number] / / Envista Intraocular Lens Implanted:Qty: 1 on 03/10/2022 by Liang Marshall MD at OR [facility] Right: Eye BAUSCH & LOMB 08/13/2023 [id number] / [id number] / [id number] Envista Intraocular Lens Implanted:Qty: 1 on 03/24/2022 by Liang Marshall MD at OR [facility] Left: Eye BAUSCH & LOMB 07/13/2024 [id number] / [id number] / [id number] documented as of this encounter Visit Diagnoses Diagnosis Iron deficiency anemia due to chronic blood loss- Primary Iron deficiency anemia secondary to blood loss (chronic) 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) H/O gastric bypass Bariatric surgery status documented in this encounter Administered Medications Active Administered Medications - up to 3 most recent administrations Medication Order MAR Action Action Date Dose Rate Site diphenhydrAMINE (Benadryl) inj 50 mg 50 mg, IV Push, ONCE PRN Other, Hypersensitivity Reaction, Starting on Mon11/06/23 at 1509, Until Mon11/07/23 at 1508, For 24 hours EPINEPHrine 1 MG/ML inj 0.3 mg 0.3 mg, Intramuscular, ONCE PRN Other, Hypersensitivity Reaction or Anaphylaxis, Starting on Mon11/06/23 at 1509, Until Mon11/07/23 at 1508, For 24 hours hEParin 100 UNIT/ML Lock Flush inj 500 Units 500 Units (5 mL), IV Lock, PRN Other, IV Flush, Starting on Mon11/06/23 at 1509, Until Mon11/07/23 at 1508, For 24 hours, Do not flush if lock, PICC, or central line not in place; IV infusing or unable to flush. Hydrocortisone Sod Suc (PF) (Solu-Cortef) inj 100 mg 100 mg, IV Push, ONCE PRN Other, Hypersensitivity Reaction, Starting on Mon11/06/23 at 1509, Until Mon11/07/23 at 1508, For 24 hours NSS infusion Intravenous, at 50 mL/hr, PRN, Starting on Mon11/06/23 at 1615, Until Discontinued, Maintenance line Start Infusion 11/06/2023 3:10 PM EDT 50 mL/hr oxygen GAS Inhalation, OXYGEN, First dose on Mon11/06/23 at 1600, Until Discontinued, Device/Managed by: Low [...] saturation is greater than or equal to 93% sodium chloride 0.9 % flush central line 10 mL 10 mL, IV Push, PRN Other, IV Flush, Starting on Mon11/06/23 at 1509, Until Mon11/07/23 at 1508, For 24 hours, Do not flush if lock, PICC, or central line not in place; IV infusing or unable to flush. 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 No Care Teams Service Order Dispatcher Relationship Specialty Start Date End Date Jocelyne Desai DO [address] [place] [address] [place] [address] PCP - General Internal Medicine 11/09/16 documented as of this encounter
--- OUTSIDE RECORDS SUMMARY | 2024-01-29 17:58 | External Medical Summary | Summary of Care ---
Author Name Unknown Organization [facility] Address [address] [facility] [place] [address] Phone [phone] Care Team Providers Care Children'S Attendant Name Role Phone Jocelyne Desai Primary Care Provider [phone] Reason for Visit * Reason Onset Date Comments Referral 11/01/2023 SP 10-Day Encounter Details Date Type Department Care Team (Late st Contact Info) Description 11/01/2023 New Patient Triage (CASING SOAKER USE ONLY) Hematology/Oncology [facility] [phone] Monty Jay CRNP 400 [place] [address] Referral (SP 10-Day) Allergies No known [...] the original. Good connectivity [facility] for wound care [phone] Televideo if needed. Problem Noted Date Diagnosed [...] podiatry,. Letter in chart from [facility] podiatry they were unable to [...] ICD-10 update of inactive term PLATT RESEARCH OTHER*[id number] 02/20/2007 ADVANCE DIRECTIVE INFORMATION 01/19/2005 Overview: Yes, [...] 11/17/19 23 LUMBAGO 12/24/2002 05/09/2007 LOC PRIM [id number] 12/24/200208/13 DEGENERATIVE SKIN DISORD 12/24/2002 VERTEBRAL FX [...] 10/31/2023 Does the household have a [facility] source of income? (Household - [...] patient on Date (mm/dd/yyyy): 11/02/2023 at Time ([facility]): 2:51 PM Additional imaging needed: No [...] diabetic ulcer to right foot and past IN. Patient was admitted to [facility] 10/21/23 - 10/25/23 with acute on chronic [...] hematology? No [place] Arellano Hematology * Halie StinsonTYRA - 11/01/2023 12:22 PM EDT New Patient Triage What is the diagnosis/reason for referral?: Anemia due to stage 4 chronic kidney disease Enter order ID here: [id number] Specialty specific documentation: Hematology/Oncology NEW PATIENT - HEMATOLOGY/ONCOLOGY SPECIALTY TRIAGE Triage needed?: Yes Referring provider name: Dr. Desai, DO Confirmation of diagnosis: No TRIAGE PLAN: Baseline/staging imaging complete: No Labs available: Yes Please see Labs scanned in under Media: 10/27/2023 and 10/24/2023 Labs done at [facility] under Care Everywhere, 10/24/2023 Referral to other specialty recommended (ie. Surgery, outpatient infusion): No Additional triage comments: Please see OV 11/01/2023 Dr. Desai Discharge Summary from [facility] ED scanned in under Media, 10/24/2023 documented [...] 11/06/2023 1:30 PM EDT Office Visit Hematology/Oncology [place] 200 [facility] [place] [phone] Monse Coates MD [address] [place] [phone] 11/13/2023 6:30 AM EDT Anticoagulation Centralized Clinical Pharmacy Services, Ilya Lafleur [address] [place] [address] [place] [address] [facility] [place] [address] 11/20/2023 2:00 PM EDT Office Visit Nephrology, [place] 200 [facility] [place] [address] Jennifer Agustin MD 200 [facility] [place] [address] 01/19/2024 9:00 AM EST Office Visit Gastroenterology [address] [place] [address] Moon Avila, [place] [address] [place] [address] 02/20/2024 12:30 PM EST Nurse Only Ancillary [address] [place] [address] [place], Nurse Annual [address] [place] [address] 03/08/2024 2:30 PM EST Office Visit Family Medicine [address] [place] [phone] [place] [address] Scheduled Orders Name Type Priority Associated Diagnoses Orde r Schedule ERYTHROPOIETIN (EPO) Lab Routine 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) Ordered: 11/01/2023 Scheduled Procedures Name Priority Associated Diagnoses Date/Ti [...] 11/09/2022, Additional history exists GFR 04/30/2024 11/01/2023, 0907/2023, 10/02/2023, Additional history exists Depression Screening 10/30/2024 10/31/2023 Albumin/Creatinine Ratio 10/31/2024 024, 07/18/2023, 11/16/2022, Additional history exists CKD HGB USE SMARTSET 50207 10/31/202410/31, 11/01/2023, 10/20/2023, Additional history exists CKD PHOS USE SMARTSET 99381 10/31/202410/14, 08/23/2023, 07/18/2023, Additional history exists DTap/Tdap Vaccines (3 [...] this encounter Medical Devices Implanted Type Area School Patrol Device Identifier Shelf Expiration Date Model / Serial / Lot Shaft Fibula 6cm 108556 - [id number] Implanted:Qty: 1 on 09/05/2008 at OR [facility] Tissue - Human N/A: Spine Cervical MUSCULOSKELETAL TRANSPLANT FND 04/20/2010 [id number] / [id number] 0P / Stent Eso Gw 22x70 [id number] - [id number] Implanted:Qty: 1 on 01/21/2008 at OR [facility] N/A: Esophagus [employer] 04/12/2009 93140-778 / / [id number] Depuy Uniplate 32 Implanted:Qty: 1 on 09/05/2008 [...] [facility] [place] N/A: Neck [id number] / [id number] / Plate Zach 3 Level Ti 54mm - [id number] Implanted:Qty: 1 on 05/07/2010 at OR [facility] N/A: Neck JNJ : DEPUY SPINE [id number] / / Screw Zach Const St Ti 14mm - [id number] Implanted:Qty: 4 on 05/07/2010 at OR [facility] N/A: Neck JNJ : DEPUY SPINE [id number] / / Screw 3.5x14 Mntr Fa [id number] - [id number] Implanted:Qty: 8 on 05/07/2010 at OR [facility] N/A: Spine Cervical JNJ : ETHICON CARDIOVATIONS [id number] / / Jarrell [id number] - [id number] Implanted:Qty: 1 on 05/07/2010 at OR [facility] N/A: Spine Cervical JNJ : ETHICON CARDIOVATIONS [id number] / / Screw Inner Mntr [id number] - [id number] Implanted:Qty: 8 on 05/07/2010 at OR [facility] N/A: Spine Cervical JNJ : ETHICON CARDIOVATIONS [id number] / / Envista Intraocular Lens Implanted:Qty: 1 on 03/10/2022 by Liang Marshall MD at OR [facility] Right: Eye BAUSCH & LOMB 08/13/2023 [id number] / [id number] / [id number] Envista Intraocular Lens Implanted:Qty: 1 on 03/24/2022 by Liang Marshall MD at OR [facility] Left: Eye BAUSCH & LOMB 07/13/2024 [id number] / [id number] / [id number] documented as of this encounter Procedures Procedure [...] 11:40 AM EDT Monty DEJESUS LAB BLOOD ORDER [facility] [address] [place] [address] * VITAMIN B12 (11/01/2023 11:40 AM EDT) Vitamin B12 951 232 - 1,245 pg/mL 11/02/2023 4:10 AM EDT [facility] Blood Venous blood specimen / Unknown Venipuncture / Unknown 11/01/2023 11:40 AM EDT 11/01/2023 11:40 AM EDT Monty DEJESUS LAB BLOOD [facility] [address] [place] [address] * LD (11/01/2023 11:40 AM EDT) [facility] LD 181 <=250 U/L 11/02/2023 3:2 7 AM EDT [facility] Blood Venous blood specimen / Unknown Venipuncture / Unknown 11/01/2023 11:40 AM EDT 11/01/2023 11:40 AM EDT Monty DEJESUS LAB BLOOD ORDER [facility] Performing Organization Address City/[facility] Co de Phone Number [facility] [address] [place] [address] * (ABNORMAL) RETICULOCYTE PANEL (11/01/2023 11:40 AM EDT) [facility] Reticulocyte Percent 1.20 0.80 - 1.90 % 11/01/2023 10:35 PM EDT [facility] Absolute Reticulocyte 35.8 31.3 - 100.1 K/uL 11/01/2023 10:35 PM EDT [facility] Immature Reticuloctye Fraction 16.9 2.5 - 20.6 % 11/01/2023 10:35 PM EDT [facility] Reticulocyte Hemoglobin 27.3(L) 29.7 - 37.4 pg 11/01/2023 10:35 PM EDT [facility] Blood Venous blood specimen / Unknown Venipuncture / Unknown 11/01/2023 11:40 AM EDT 11/01/2023 11:40 AM EDT Monty DEJESUS LAB BLOOD ORDER [facility] Performing Organization Address City/[facility]/ZIP Co de Phone Number LABORATORY [facility] [address] [place] [address] * FERRITIN (11/01/2023 11:40 AM EDT) [facility] Ferritin 121 30 - 400 ng/mL 11/02/2023 4:10 AM EDT [facility] Blood Venous blood specimen / Unknown Venipuncture / Unknown 11/01/2023 11:40 AM EDT 11/01/2023 11:40 AM EDT Monty Jay [place] LAB BLOOD ORDER [facility] [address] [place] [address] documented in this encounter Visit Diagnoses Diagnosis 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)- Primary Iron deficiency anemia due to chronic blood loss Iron deficiency anemia secondary to blood loss (chronic) H/O gastric bypass Bariatric surgery status documented in this encounter Advance Directives Documents on File Type Date Recorded Patient Learning Support Assistant Expl anation POLST 01/26/2021 [place] OR [facility] FOR LIFE-SUSTAINING [...] Power of Attor andrew? No Care Teams Children'S Attendant Relationship Specialty Start Date End Date Jocelyne Desai DO [address] [place] [address] [place] [address] PCP - General Internal Medicine 11/09/16 documented as of this encounter
--- OUTSIDE RECORDS SUMMARY | 2024-01-29 17:58 | External Medical Summary | Summary of Care ---
Author Name Unknown Organization [facility] Address [address] [facility] [place] [address] Phone [phone] Care Team Providers Care Punch Card Operator Name Role Phone Jocelyne Desai Primary Care Provider + [phone] Reason for Visit * Reason Onset Date Comments Precert Future 11/03/2023 monoferric Encounter Details Date Type Department Care Team (Late st Contact Info) Description 11/03/2023 Telephone Hematology/Oncology Treatment, [place] [address] [place] [address] Nichelle Booker CRNP 400 [place] [address] Precert Future (monoferric) Allergies No [...] Good connectivity [facility] for wound care [phone] Televideo if needed. Problem Noted Date Diagnosed [...] up with podiatry,. Letter in chart from [facility] podiatry they were unable to get [...] ICD-10 update of inactive term PLATT RESEARCH OTHER*[id number] 02/20/2007 ADVANCE DIRECTIVE INFORMATION 01/19/2005 Overview: Yes, [...] 11/17/19 23 LUMBAGO 12/24/2002 05/09/2007 LOC PRIM [id number] 12/24/200208/13 DEGENERATIVE SKIN DISORD 12/24/2002 VERTEBRAL FX [...] 9:57 AM EDT Referral entered, sent to [facility]. Called patient, he verbalized understanding of iron infusion being tentatively ordered for after new patient appt Monday. * Telephone Encounter - Chante Tee RN - 11/03/2023 8:34 AM EDT Order received for monoferric. [place] plan built and routed for signature. Waiting [...] 1:30 PM EDT Office Visit Hematology/Oncology [place] [address] [facility] [place] [phone] Monse Coates MD [address] [place] Manj[place] [address] 11/13/2023 6:30 AM EDT Anticoagulation Centralized Clinical Pharmacy Services, Ilya Lafleur [address] [place] [address] [place] [address] [place] [address] 11/20/2023 2:00 PM EDT Office Visit Nephrology, [facility] [address] [facility] [place] [address] Jennifer Agustin MD [address] [facility] [place] [address] 01/19/2024 9:00 AM EST Office Visit Gastroenterology [address] [place] [address] Moon Avila CRNP [address] [place] [address] 02/20/2024 12:30 PM EST Nurse Only Ancillary [address] [place] [address] [place], Nurse Annual Wellness [address] [place] [address] [place] [address] 03/08/2024 2:30 PM EST Office Visit Family Medicine [address] [place] [phone] [place] [address] Scheduled Procedures Name Priority Associated Diagnoses Date/Ti [...] exists Depression Screening 10/30/2024 10/31/2023 Albumin/Creatinine Ratio 10/31/20242 024, 07/18/2023, 11/16/2022, Additional history exists CKD HGB USE SMARTSET 77548 10/31/202410/31, 11/01/2023, 10/20/2023, Additional history exists CKD PHOS USE SMARTSET 53981 10/31/202410/14, 08/23/2023, 07/18/2023, Additional history exists DTap/Tdap [...] this encounter Medical Devices Implanted Type Area Boring Machine Set Up Operator Device Identifier Shelf Expiration Date Model / Serial / Lot Shaft Fibula 6cm 300122 - [id number] Implanted:Qty: 1 on 09/05/2008 at OR [facility] Tissue - Human N/A: Spine Cervical MUSCULOSKELETAL TRANSPLANT FND 04/20/2010 [id number] / [id number] 0P / Stent Eso Gw 22x70 14772-192 - [id number] Implanted:Qty: 1 on 01/21/2008 at OR [facility] N/A: Esophagus [employer] INC 04/12/2009 65662-385 / / [id number] Depuy Uniplate 32 Implanted:Qty: 1 on 09/05/2008 [...] Plate Zach 3 Level Ti 54mm - [id number] Implanted:Qty: 1 on 05/07/2010 at OR [facility] N/A: Neck JNJ : DEPUY SPINE [id number] 54 / / Screw Zach Const St Ti 14mm - [id number] Implanted:Qty: 4 on 05/07/2010 at OR [facility] N/A: Neck JNJ : DEPUY SPINE [id number] 14 / / Screw 3.5x14 Mntr Fa [id number] - [id number] Implanted:Qty: 8 on 05/07/2010 at OR [facility] N/A: Spine Cervical JNJ : ETHICON CARDIOVATIONS [id number] / / Jarrell [id number] - [id number] Implanted:Qty: 1 on 05/07/2010 at OR [facility] N/A: Spine Cervical JNJ : ETHICON CARDIOVATIONS [id number] / / Screw Inner Mntr [id number] - [id number] Implanted:Qty: 8 on 05/07/2010 at OR [facility] N/A: Spine Cervical JNJ : ETHICON CARDIOVATIONS [id number] / / Envista Intraocular Lens Implanted:Qty: 1 on 03/10/2022 by Liang Marshall MD at OR [facility] Right: Eye BAUSCH & LOMB 08/13/2023 [id number] / [id number] / [id number] Envista Intraocular Lens Implanted:Qty: 1 on 03/24/2022 by Liang Marshall MD at OR [facility] Left: Eye BAUSCH & LOMB 07/13/2024 [id number] / [id number] / [id number] documented as of this encounter Advance Directives Documents on File Type Date Recorded Patient Manager Hydraulic Expl anation POLST 01/26/2021 [place] OR [email or web address] FOR [...] Health Care Power of Attor adnrew? No * Full Code Date Activated Date [...] Power of Attor andrew? No Care Teams Punch Card Operator Relationship Specialty Start Date End Date Jocelyne Desai DO [address] [place] [address] [place] [address] PCP - General Internal Medicine 11/09/16 documented as of this encounter
--- OUTSIDE RECORDS SUMMARY | 2024-01-29 17:58 | External Medical Summary | Summary of Care ---
Author Name Unknown Organization [facility] Address [address] [place] [facility] [place] [address] Phone [phone] Care Team Providers Care Staff Therapist Name Role Phone Jocelyne Desai Primary Care Provider + [phone] Reason for Visit * Reason Onset Date Comments Precert Future 11/03/2023 monoferric Encounter Details Date Type Department Care Team (Late st Contact Info) Description 11/03/2023 Telephone Hematology/Oncology Treatment, [place] [address] [place] [address] Nichelle Booker CRNP [address] [place] [address] Precert Future (monoferric) Allergies No [...] connectivity [facility] for wound care [phone] Televideo if needed. Problem Noted Date Diagnosed [...] ICD-10 update of inactive term PLATT RESEARCH OTHER*[id number] 02/20/2007 ADVANCE DIRECTIVE INFORMATION 01/19/2005 Overview: Yes, [...] 11/17/19 23 LUMBAGO 12/24/2002 05/09/2007 LOC PRIM [id number] 12/24/200208/13 DEGENERATIVE SKIN DISORD 12/24/2002 VERTEBRAL FX [...] 9:57 AM EDT Referral entered, sent to [facility]. Called patient, he verbalized understanding of iron infusion being tentatively ordered for after new patient appt Monday. Discussed that we can switch to alternate product if OOP cost is determined to be high. * Telephone Encounter - Chante Tee RN - 11/03/2023 8:34 AM EDT Order received for monoferric. [place] plan built and routed for signature. Waiting [...] 1:30 PM EDT Office Visit Hematology/Oncology [place] 200 [facility] [place] [phone] Monse Coates MD [address] [place] [address] [place] [address] 11/13/2023 6:30 AM EDT Anticoagulation Centralized Clinical Pharmacy Services, Ilya Lafleur [address] [place] [address] [place] [address] [place] [address] 11/20/2023 2:00 PM EDT Office Visit Nephrology, [facility] 200 [facility] [place] [address] Jennifer Agustin MD 200 [facility] [place] [address] 01/19/2024 9:00 AM EST Office Visit Gastroenterology [address] [place] [address] Moon Avila, [place] [address] [place] [address] 02/20/2024 12:30 PM EST Nurse Only Ancillary [address] [place] [address] [place], Nurse Annual Wellness [address] [place] [address] [place] [address] 03/08/2024 2:30 PM EST Office Visit Family Medicine [address] [place] [phone] Jocelyne Desai, [address] [place] [address] Scheduled Procedures Name Priority Associated Diagnoses Date/Ti [...] Additional history exists CKD HGB USE SMARTSET 95684 10/31/202410/31, 11/01/2023, 10/20/2023, Additional history exists CKD PHOS USE SMARTSET 85086 10/31/202410/14, 08/23/2023, 07/18/2023, Additional history exists DTap/Tdap [...] encounter Medical Devices Implanted Type Area Media Promoter Device Identifier Shelf Expiration Date Model / Serial / Lot Shaft Fibula 6cm [id number] - [id number] Implanted:Qty: 1 on 09/05/[address] [facility] Tissue - Human N/A: Spine Cervical MUSCULOSKELETAL TRANSPLANT FND 04/20/2010 [id number] / [id number] 0P / Stent Eso Gw 22x70 [id number] - [id number] Implanted:Qty: 1 on 01/21/[address] [facility] N/A: Esophagus ALVEOLUS INC 04/12/2009 66839-069 / / [id number] Depuy Uniplate 32 Implanted:Qty: 1 on 09/05/2008 [...] Plate Zach 3 Level Ti 54mm - [id number] Implanted:Qty: 1 on 05/07/[address] [facility] N/A: Neck JNJ : DEPUY SPINE [id number] 54 / / Screw Zach Const St Ti 14mm - [id number] Implanted:Qty: 4 on 05/07/[address] [facility] N/A: Neck JNJ : DEPUY SPINE [id number] 14 / / Screw 3.5x14 Mntr Fa [id number] - [id number] Implanted:Qty: 8 on 05/07/[address] [facility] N/A: Spine Cervical JNJ : ETHICON CARDIOVATIONS [id number] / / Jarrell [id number] [id number] - [id number] Implanted:Qty: 1 on 05/07/[address] [facility] N/A: Spine Cervical JNJ : ETHICON CARDIOVATIONS [id number] / / Screw Inner Mntr [id number] - [id number] Implanted:Qty: 8 on 05/07/[address] [facility] N/A: Spine Cervical JNJ : ETHICON CARDIOVATIONS [id number] / / Envista Intraocular Lens Implanted:Qty: 1 on 03/10/2022 by Liang Marshall MD at OR [facility] Right: Eye BAUSCH & LOMB 08/13/2023 [id number] / [id number] / [id number] Envista Intraocular Lens Implanted:Qty: 1 on 03/24/2022 by Liang Marshall MD at OR [facility] Left: Eye BAUSCH & LOMB 07/13/2024 [id number] / [id number] / [id number] documented as of this encounter Advance Directives Documents on File Type Date Recorded Patient Credit Investigator Expl anation POLST 01/26/2021 [place] OR [facility] FOR LIFE-SUSTAINING TREATMENT [...] Power of Attor andrew? No Care Teams Staff Therapist Relationship Specialty Start Date End Date Jocelyne Desai DO [address] [place] [address] [place] [address] PCP - General Internal Medicine 11/09/16 documented as of this encounter
--- OUTSIDE RECORDS SUMMARY | 2024-01-29 17:58 | External Medical Summary | Summary of Care ---
Author Name Unknown Organization [facility] Address [address] [facility] [place] [address] Phone [phone] Care Team Providers Care Church Supervisor Name Role Phone Jocelyne Desai Primary Care Provider [phone] Encounter Details Date Type Department Care Team (Late st Contact Info) Description 11/02/2023 Orders Only NephrologyCely [address] [place] [address] Nino Jalloh MD 200 [facility] [place] [address] Allergies No known active allergiesdocumented as of this encounter (statuses as of 11/02/2023) Medications Medication Sig Dispensed Refills Start Date [...] as of this encounter (statuses as of 11/02/2023) Active Problems Patient Care Coordination No te Formatting of this note migh t be different from the original. Good connectivity [facility] for wound care [phone] Televideo if needed. Problem Noted Date Diagnosed Date Atrial fibrillation 09/27/2023 SVT (supraventricular tachycardia) 09/27/2023 [...] podiatry,. 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 SPINAL STENOSIS-LUMBAR 09/23/2002 Vitamin D deficiency Cervical spinal stenosis documented as of this encounter (statuses as of 11/02/2023) Resolved Problems Problem Noted Date Diagnosed Date [...] 11/17/19 23 LUMBAGO 12/24/2002 05/09/2007 LOC PRIM [id number] 12/24/200208/13 DEGENERATIVE SKIN DISORD 12/24/2002 VERTEBRAL FX [...] as of this encounter (statuses as of 11/02/2023) Immunizations Name Administration Dates Next Due COVID-19 [...] No 10/31/2023 Does the household have a [facility] source of income? (Household - [...] Miscellaneous Notes * Result Encounter Note - Nino Jalloh MD - 11/02/2023 3:27 PM EDT [facility] hospital CXR documented in this encounter Plan of Treatment Upcoming Encounters Date Type Department Care Team (Late st Contact Info) Description 11/06/2023 1:30 PM EDT Office Visit Hematology/Oncology Cely Zaldivar [place] 200 [facility] [place] [phone] Monse Coates MD [address] [place] [address] 11/13/2023 6:30 AM EDT Anticoagulation Centralized Clinical Pharmacy Services, Ilya Lafleur [address] [place] [address] [place] [address] [facility], [address] [place] [address] 11/20/2023 2:00 PM EDT Office Visit Nephrology, [facility] 200 [facility] [place] [address] Jennifer Agustin MD [address] [place] [address] 01/19/2024 9:00 AM EST Office Visit Gastroenterology [address] [place] [address] Moon Avila CRNP [address] [place] [address] 02/20/2024 12:30 PM EST Nurse Only Ancillary [address] [place] [address] Marleeey, Nurse [address] [place] [address] 03/08/2024 2:30 PM EST Office Visit Family Medicine [address] [place] [phone] Jocelyne Desai [address] [place] [address] Scheduled Procedures Name Priority Associated Diagnoses Date/Ti [...] Additional history exists CKD HGB USE SMARTSET 43113 10/31/202410/31, 11/01/2023, 10/20/2023, Additional history exists CKD PHOS USE SMARTSET 36125 10/31/202410/14, 08/23/2023, 07/18/2023, Additional history exists DTap/Tdap [...] this encounter Medical Devices Implanted Type Area Tavern Keeper Device Identifier Shelf Expiration Date Model / Serial / Lot Shaft Fibula 6cm [id number] - [id number] Implanted:Qty: 1 on 09/05/2008 at OR [facility] Tissue - Human N/A: Spine Cervical MUSCULOSKELETAL TRANSPLANT FND 04/20/2010 [id number] / [id number] / Stent Eso Gw 22x70 13528-565 - [id number] Implanted:Qty: 1 on 01/21/2008 at OR [facility] N/A: Esophagus [employer] 04/12/2009 [id number] / / [id number] Depuy Uniplate 32 Implanted:Qty: 1 on 09/05/2008 at OR [facility] N/A: Spine Cervical TAMMY & TAMMY DEPUY [id number] / / Depuy Uniplate Screw 14mm Implanted:Qty: 2 on 09/05/2008 at OR [facility] N/A: Spine Cervical TAMMY & TAMMY DEPUY 1897-017 / / Depuy Lordotic Bengal Cage Implanted:Qty: 1 on 05/07/2010 at OR [facility] N/A: Neck 1773-06-146 / 1773-06-146 / Plate Zach 3 Level Ti 54mm - [id number] Implanted:Qty: 1 on 05/07/2010 at OR [facility] N/A: Neck JNJ : DEPUY SPINE [id number] / / Screw Zach Const St Ti 14mm - [id number] Implanted:Qty: 4 on 05/07/2010 at OR [facility] N/A: Neck JNJ : DEPUY SPINE [id number] / / Screw 3.5x14 Mntr Fa [id number] - [id number] Implanted:Qty: 8 on 05/07/2010 at OR [facility] N/A: Spine Cervical JNJ : ETHICON CARDIOVATIONS [id number] / / Jarrell [id number] - [id number] Implanted:Qty: 1 on 05/07/2010 at OR [facility] N/A: Spine Cervical JNJ : ETHICON CARDIOVATIONS [id number] / / Screw Inner Mntr [id number] - [id number] Implanted:Qty: 8 on 05/07/2010 at OR [facility] N/A: Spine Cervical JNJ : ETHICON CARDIOVATIONS [id number] / / Envista Intraocular Lens Implanted:Qty: 1 on 03/10/2022 by Liang Marshall MD at OR [facility] Right: Eye BAUSCH & LOMB 08/13/2023 [id number] / [id number] / [id number] Envista Intraocular Lens Implanted:Qty: 1 on 03/24/2022 by Liang Marshall MD at OR [facility] Left: Eye BAUSCH & LOMB 07/13/2024 [id number] / [id number] / [id number] documented as of this encounter Procedures Procedure Name Priority Date/Time Associated Diagnosis Comments XR CHEST 2 VIEWS Routine 10/22/2023 documented in this encounter Results * XR CHEST 2 VIEWS (10/22/2023) Anatomical Region Laterality Modality Chest Other 10/22/2023 Nino Jalloh MD RADIOLOGY (RAD GENER AL) documented in this encounter Advance Directives Documents on File Type Date Recorded Patient Mainspring Reverse Winder Expl anation POLST 01/26/2021 [place] OR [facility] FOR LIFE-SUSTAINING TREATMENT [...] Power of Attor andrew? No Care Teams Church Supervisor Relationship Specialty Start Date End Date Jocelyne Desai DO [address] [place] [address] [place] [address] PCP - General Internal Medicine 11/09/16 documented as of this encounter
--- OUTSIDE RECORDS SUMMARY | 2024-01-29 17:58 | External Medical Summary | Summary of Care ---
Author Name Unknown Organization [facility] Address [address] [place] [place] [address] Phone [phone] Care Team Providers Care Deliverer Outside Name Role Phone Jocelyne Desai Primary Care Provider + [phone] Reason for Visit * Reason Onset Date Comments Precert Future 11/03/2023 monoferric Encounter Details Date Type Department Care Team (Late st Contact Info) Description 11/03/2023 Telephone Hematology/Oncology Treatment, [facility] [address] [place] [address] Nichelle Booker CRNP [address] [place] [address] Precert Future (monoferric) Allergies No [...] [facility] for wound care [phone] Televideo if needed. Problem Noted Date Diagnosed [...] chart from [facility] podiatry they were unable to get in [...] ICD-10 update of inactive term PLATT RESEARCH OTHER*[id number] 02/20/2007 ADVANCE DIRECTIVE INFORMATION 01/19/2005 Overview: Yes, [...] [place] office early next week will need [facility] provider recheck Multiple and open [...] 11/17/19 23 LUMBAGO 12/24/2002 05/09/2007 LOC PRIM [id number] 12/24/200208/13 DEGENERATIVE SKIN DISORD 12/24/2002 VERTEBRAL FX [...] 8:34 AM EDT Order received for monoferric. Collins plan built and routed for signature. Waiting [...] 11/06/2023 1:30 PM EDT Office Visit Hematology/Oncology [facility] 200 [facility] [place] [phone] Monse Coates MD [address] [place] [address] [place] [phone] 11/13/2023 6:30 AM EDT Anticoagulation Centralized Clinical Pharmacy Services, Ilya Lafleur [address] [place] [address] [place] [address] [place] [address] 11/20/2023 2:00 PM EDT Office Visit Nephrology, [facility] 200 [facility] [place] [address] Jennifer Agustin MD 200 [facility] [place] [address] 01/19/2024 9:00 AM EST Office Visit Gastroenterology [address] [place] [address] Moon Avila CRNP [address] [place] [address] 02/20/2024 12:30 PM EST Nurse Only Ancillary [address] [place] [address] Moncho, Nurse [address] [place] [address] 03/08/2024 2:30 PM EST Office Visit Family Medicine [address] [place] [phone] [place] [address] Scheduled Procedures Name Priority Associated Diagnoses Date/Ti [...] Additional history exists CKD HGB USE SMARTSET 84040 10/31/202410/31, 11/01/2023, 10/20/2023, Additional history exists CKD PHOS USE SMARTSET 23662 10/31/202410/14, 08/23/2023, 07/18/2023, Additional history exists DTap/Tdap [...] this encounter Medical Devices Implanted Type Area Bookstore Manager Device Identifier Shelf Expiration Date Model / Serial / Lot Shaft Fibula 6cm [id number] - [id number] Implanted:Qty: 1 on 09/05/2008 at OR [facility] Tissue - Human N/A: Spine Cervical MUSCULOSKELETAL TRANSPLANT FND 04/20/2010 [id number] / [id number] 0P / Stent Eso Gw 22x70 30149-215 - [id number] Implanted:Qty: 1 on 01/21/2008 at OR [facility] N/A: Esophagus [employer]US INC 04/12/2009 17964-067 / / [id number] Depuy Uniplate 32 Implanted:Qty: 1 on 09/05/2008 at OR [facility] N/A: Spine Cervical TAMMY & TAMMY DEPUY 1896--302 / / Depuy Uniplate Screw 14mm Implanted:Qty: 2 on 09/05/2008 at OR [facility] N/A: Spine Cervical TAMMY & TAMMY DEPUY 189--017 / / Depuy Lordotic Bengal Cage Implanted:Qty: 1 on 05/07/2010 at OR [facility] N/A: Neck 1773-06-146 / 1773-06-146 / Plate Zach 3 Level Ti 54mm - [id number] Implanted:Qty: 1 on 05/07/2010 at OR [facility] N/A: Neck JNJ : DEPUY SPINE [id number] 54 / / Screw Zach Const St Ti 14mm - [id number] Implanted:Qty: 4 on 05/07/2010 at OR [facility] N/A: Neck JNJ : DEPUY SPINE [id number] 14 / / Screw 3.5x14 Mntr Fa [id number] - [id number] Implanted:Qty: 8 on 05/07/2010 at OR [facility] N/A: Spine Cervical JNJ : ETHICON CARDIOVATIONS [id number] / / Jarrell [id number] - [id number] Implanted:Qty: 1 on 05/07/2010 at OR [facility] N/A: Spine Cervical JNJ : ETHICON CARDIOVATIONS [id number] / / Screw Inner Mntr [id number] - [id number] Implanted:Qty: 8 on 05/07/2010 at OR [facility] N/A: Spine Cervical JNJ : ETHICON CARDIOVATIONS [id number] / / Envista Intraocular Lens Implanted:Qty: 1 on 03/10/2022 by Liang Marshall MD at OR [facility] Right: Eye BAUSCH & LOMB 08/13/2023 [id number] / [id number] / [id number] Envista Intraocular Lens Implanted:Qty: 1 on 03/24/2022 by Liang Marshall MD at OR [facility] Left: Eye BAUSCH & LOMB 07/13/2024 [id number] / [id number] / [id number] documented as of this encounter Advance Directives Documents on File Type Date Recorded Patient Pin Ball Machine Mechanic Expl anation POL 01/26/2021 [place] OR [facility] FOR [...] Power of Attor andrew? No Care Teams Deliverer Outside Relationship Specialty Start Date End Date Jocelyne Desai DO [address] [place] [address] [place] [address] PCP - General Internal Medicine 11/09/16 documented as of this encounter
--- OUTSIDE RECORDS SUMMARY | 2024-01-29 17:58 | External Medical Summary | Summary of Care ---
Author Name Unknown Organization [facility] Address [address] [facility] [address] Phone [phone] Care Team Providers Care Deputy Attorney General Name Role Phone Jocelyne Desai Primary Care Provider [phone] Reason for Visit * Reason Onset Date Comments Referral 11/01/2023 SP 10-Day Encounter Details Date Type Department Care Team (Late st Contact Info) Description 11/01/2023 New Patient Triage (CYTOGENETICS TECHNOLOGIST USE ONLY) Hematology/On[facility] [phone] Monty Jay CRNP 400 [place] [address] Referral (SP 10-Day) Allergies No known [...] [facility] for wound care [phone] Televideo if needed. Problem Noted Date Diagnosed [...] with podiatry,. 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 Patient was admitted to [facility] 10/21/23 - 10/25/23 with acute on chronic [...] chronic kidney disease Enter order ID here: [id number] Specialty specific documentation: Hematology/Oncology NEW PATIENT - [...] OV 11/01/2023 Dr. Desai Discharge Summary from [facility] ED scanned in under Media, 10/24/2023 documented [...] 11/06/2023 1:30 PM EDT Office [facility] [place] 200 [facility] [place] [phone] Monse Coates MD [address] [place] [address] 11/13/2023 6:30 AM EDT Anticoagulation Centralized Clinical Pharmacy Services, Ilyalillie Lafleur [address] [place] [address] [place] [address] [facility], [address] [place] [address] 11/20/2023 2:00 PM EDT Office Visit Nephrology, [facility] 200 [facility] [place] [address] Jennifer Agustin MD 200 [facility] [place] [address] 01/19/2024 9:00 AM EST Office Visit Gastroenterology [address] [place] [address] Moon Avila CRNP [address] [place] [address] 02/20/2024 12:30 PM EST Nurse Only Ancillary [address] [place] [address] Moncho, Nurse [facility] [address] [place] [address] [place] [address] 03/08/2024 2:30 PM EST Office Visit Family Medicine [address] [place] [phone] Jocelyne Desai, [address] [place] [address] Scheduled Orders Name Type Priority Associated Diagnoses [...] 10/31/202410/31/2 024, 07/18/2023, 11/16/2022, Additional history exists CKD HGB USE SMARTSET 68926 10/31/202410/31, 11/01/2023, 10/20/2023, Additional history exists CKD PHOS USE SMARTSET 60082 10/31/202410/14, 08/23/2023, 07/18/2023, Additional history exists DTap/Tdap [...] this encounter Medical Devices Implanted Type Area Drop Hammer Mechanic Device Identifier Shelf Expiration Date Model / Serial / Lot Shaft Fibula 6cm [id number] - [id number] Implanted:Qty: 1 on 09/05/2008 at [place] [facility] Tissue - Human N/A: Spine Cervical MUSCULOSKELETAL TRANSPLANT FND 04/20/2010 [id number] / [id number] 0P / Stent Eso Gw 22x70 23744-990 - [id number] Implanted:Qty: 1 on 01/21/2008 at OR [facility] N/A: Esophagus [employer]US INC 04/12/2009 59946-584 / / [id number] Depuy Uniplate 32 Implanted:Qty: 1 on 09/05/2008 [...] Plate Zach 3 Level Ti 54mm - [id number] Implanted:Qty: 1 on 05/07/2010 at OR [facility] N/A: Neck JNJ : DEPUY SPINE [id number] 54 / / Screw Zach Const St Ti 14mm - [id number] Implanted:Qty: 4 on 05/07/2010 at OR [facility] N/A: Neck JNJ : DEPUY SPINE [id number] 14 / / Screw 3.5x14 Mntr Fa [id number] - [id number] Implanted:Qty: 8 on 05/07/2010 at OR [facility] N/A: Spine Cervical JNJ : ETHICON CARDIOVATIONS [id number] / / Jarrell [id number] - [id number] Implanted:Qty: 1 on 05/07/2010 at OR [facility] N/A: Spine Cervical JNJ : ETHICON CARDIOVATIONS [id number] / / Screw Inner Mntr [id number] - [id number] Implanted:Qty: 8 on 05/07/2010 at OR [facility] N/A: Spine Cervical JNJ : ETHICON CARDIOVATIONS [id number] / / Envista Intraocular Lens Implanted:Qty: 1 on 03/10/2022 by Liang Marshall MD at OR [facility] Right: Eye BAUSCH & LOMB 08/13/2023 [id number] / [id number] / [id number] Envista Intraocular Lens Implanted:Qty: 1 on 03/24/2022 by Liang Marshall MD at OR [facility] Left: Eye BAUSCH & LOMB 07/13/2024 [id number] / [id number] / [id number] documented as of this encounter Procedures Procedure [...] LAB BLOOD ORDER LYNETTE Performing Organization Address City/[facility]/ZIP Co de Phone Number LABORATORY [facility] [address] [place] [address] * VITAMIN B12 (11/01/2023 11:40 AM EDT) Pathologist [facility] Vitamin B12 951 232 - 1,245 pg/mL 11/02/2023 4:10 AM EDT LABORATORY [facility] Blood Venous blood specimen / Unknown Venipuncture / Unknown 11/01/2023 11:40 AM EDT 11/01/2023 11:40 AM EDT Monty DEJESUS LAB BLOOD ORDER LYNETTE LABORATORY [facility] [address] [place] [address] * LD (11/01/2023 11:40 AM EDT) Pathologist [facility] LD 181 <=250 U/L 11/02/2023 3:2 7 AM EDT LABORATORY [facility] Blood Venous blood specimen / Unknown Venipuncture / Unknown 11/01/2023 11:40 AM EDT 11/01/2023 11:40 AM EDT Monty DEJESUS LAB BLOOD ORDER LYNETTE LABORATORY [facility] [address] [place] [address] * (ABNORMAL) RETICULOCYTE PANEL (11/01/2023 11:40 AM EDT) Reticulocyte Percent 1.20 0.80 - 1.90 % [...] AM EDT Monty DEJESUS LAB BLOOD ORDER LYNTETE Performing Organization Address [facility] Co de Phone Number LABORATORY [facility] [address] [place] [address] * FERRITIN (11/01/2023 11:40 AM EDT) Ferritin 121 30 - 400 ng/mL 11/02/2023 4:10 AM EDT LABORATORY [facility] Blood Venous blood specimen / Unknown Venipuncture / Unknown 11/01/2023 11:40 AM EDT 11/01/2023 11:40 AM EDT Monty DEJESUS LAB BLOOD ORDER LYNETTE LABORATORY [facility] [address] [place] [address] documented in this encounter Visit Diagnoses Diagnosis 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)- Primary 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
--- OUTSIDE RECORDS SUMMARY | 2024-01-29 17:58 | External Medical Summary | Summary of Care ---
Author Name Unknown Organization [facility] Address [address] [facility] [place] [address] Phone [phone] Care Team Providers Care Plastics Scientist Name Role Phone Jocelyne Desai Primary Care Provider + [phone] Reason for Visit * Reason Onset Date Comments Precert Future 11/03/2023 monoferric Encounter Details Date Type Department Care Team (Late st Contact Info) Description 11/03/2023 Telephone Hematology/Oncology Treatment, [place] [address] [place] [address] Nichelle Booker CRNP [address] [place] [address] Precert Future (monoferric) Allergies No [...] from the original. Good connectivity [facility] for wound care [phone] Televideo if needed. Problem Noted Date Diagnosed [...] podiatry,. Letter in chart from [facility] podiatry they were unable to get [...] ICD-10 update of inactive term PLATT RESEARCH OTHER*[id number] 02/20/2007 ADVANCE DIRECTIVE INFORMATION 01/19/2005 Overview: Yes, [...] 11/17/19 23 LUMBAGO 12/24/2002 05/09/2007 LOC PRIM [id number] 12/24/200208/13 DEGENERATIVE SKIN DISORD 12/24/2002 VERTEBRAL FX [...] 9:57 AM EDT Referral entered, sent to [facility]. Called patient, he verbalized understanding of iron infusion being tentatively ordered for after new patient appt Monday. Discussed that we can switch to alternate product if OOP cost is determined to be high. * Telephone Encounter - Chante Tee RN - 11/03/2023 8:34 AM EDT Order received for monoferric. [place] plan built and routed for signature. Waiting [...] 1:30 PM EDT Office Visit H[place]ology[place] [facility] [address] [facility] [place] [phone] Monse Coates MD [address] [place] [address] [place] [phone] 11/13/2023 6:30 AM EDT Anticoagulation Centralized Clinical Pharmacy Services, Ilya Lafleur [address] [place] [address] [place] [address] [place] [address] 11/20/2023 2:00 PM EDT Office Visit Nephrology, [facility] [address] [facility] [place] [address] Jennifer Agustin MD [address] [facility] [place] [address] 01/19/2024 9:00 AM EST Office Visit Gastroenterology [address] [place] [address] Moon Avila, OLEG [address] [place] [address] 02/20/2024 12:30 PM EST Nurse Only Ancillary [address] [place] [address] [place], Nurse Annual Wellness [address] [place] [address] [place] [address] 03/08/2024 2:30 PM EST Office Visit Family Medicine [address] [place] [phone] Jocelyne Desai, [address] [place] [address] Scheduled Procedures Name Priority Associated Diagnoses Date/Ti [...] Additional history exists CKD HGB USE SMARTSET 48898 10/31/202410/31, 11/01/2023, 10/20/2023, Additional history exists CKD PHOS USE SMARTSET 39744 10/31/202410/14, 08/23/2023, 07/18/2023, Additional history exists DTap/Tdap [...] this encounter Medical Devices Implanted Type Area Gear Changer Device Identifier Shelf Expiration Date Model / Serial / Lot Shaft Fibula 6cm 084746 - [id number] Implanted:Qty: 1 on 09/05/2008 at OR [facility] [place] Tissue - Human N/A: Spine Cervical MUSCULOSKELETAL TRANSPLANT FND 04/20/2010 [id number] / [id number] 0P / Stent Eso Gw 22x70 [id number] - [id number] Implanted:Qty: 1 on 01/21/2008 at OR [facility] [place] N/A: Esophagus ALVEOLUS INC 04/12/2009 17672-275 / / [id number] Depuy Uniplate 32 Implanted:Qty: 1 on 09/05/2008 at OR [facility] [place] N/A: Spine Cervical TAMMY & TAMMY DEPUY 1897-02-302 / / Depuy Uniplate Screw 14mm Implanted:Qty: 2 on 09/05/2008 at OR [facility] [place] N/A: Spine Cervical TAMMY & TAMMY DEPUY 1897-06-017 / / Depuy Lordotic Bengal Cage Implanted:Qty: 1 on 05/07/2010 at OR [facility] [place] N/A: Neck 1773-06-146 / 1773-06-146 / Plate Zach 3 Level Ti 54mm - [id number] Implanted:Qty: 1 on 05/07/2010 at OR [facility] [place] N/A: Neck JNJ : DEPUY SPINE [id number] / / Screw Zach Const St Ti 14mm - [id number] Implanted:Qty: 4 on 05/07/2010 at OR [facility] [place] N/A: Neck JNJ : DEPUY SPINE [id number] 14 / / Screw 3.5x14 Mntr Fa [id number] - [id number] Implanted:Qty: 8 on 05/07/2010 at OR [facility] [place] N/A: Spine Cervical JNJ : ETHICON CARDIOVATIONS [id number] / / Jarrell [id number] - [id number] Implanted:Qty: 1 on 05/07/2010 at OR [facility] [place] N/A: Spine Cervical JNJ : ETHICON CARDIOVATIONS [id number] / / Screw Inner Mntr [id number] - [id number] Implanted:Qty: 8 on 05/07/2010 at OR [facility] [place] N/A: Spine Cervical JNJ : ETHICON CARDIOVATIONS [id number] / / Envista Intraocular Lens Implanted:Qty: 1 on 03/10/2022 by Liang Marshall MD at OR [facility] Right: Eye BAUSCH & LOMB 08/13/2023 [id number] / [id number] / [id number] Envista Intraocular Lens Implanted:Qty: 1 on 03/24/2022 by Liang Marshall MD at OR [facility] Left: Eye BAUSCH & LOMB 07/13/2024 [id number] / [id number] / [id number] documented as of this encounter Advance Directives Documents on File Type Date Recorded 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 No Care Teams Plastics Scientist Relationship Specialty Start Date End Date Jocelyne Desai DO [address] [place] [address] [place] [address] PCP - General Internal Medicine 11/09/16 documented as of this encounter
--- OUTSIDE RECORDS SUMMARY | 2024-01-29 17:59 | External Medical Summary | Summary of Care ---
Author Name Unknown Organization [facility] Address [address] [facility] [place] [address] Phone [phone] Care Team Providers Care Medical Imaging Technologist Name Role Phone Jocelyne Desai DO Primary Care Provider Reason for Visit * Reason Onset Date Comments Appointment 11/01/2023 Hematology Encounter Details Date Type Department Care Team (Late st Contact Info) Description 11/01/2023 Telephone Family Medicine [address] [phone] Jocelyne Desai DO [address] [place] [address] [place] [address] Appointment (Hematology ) Allergies No known active allergiesdocumented as of this encounter (statuses as of 11/01/2023) Medications Medication Sig Dispensed Refills Start Date [...] as of this encounter (statuses as of 11/01/2023) Active Problems Patient Care Coordination No te Formatting of this note migh t be different from the original. Good connectivity [facility] for wound care [phone] Televideo if needed. Problem Noted Date Diagnosed [...] ICD-10 update of inactive term PLATT RESEARCH OTHER*[id number] 02/20/2007 ADVANCE DIRECTIVE INFORMATION 01/19/2005 Overview: Yes, Patient instructed to provide copy of advance directive for provider to review and to be scanned into Electronic Medical Record No, Advance Directive brochure given to patient at prior appointment. SPINAL STENOSIS-LUMBAR 09/23/2002 Vitamin D deficiency Cervical spinal stenosis documented as of this encounter (statuses as of 11/01/2023) Resolved Problems Problem Noted Date Diagnosed Date [...] 11/17/19 23 LUMBAGO 12/24/2002 05/09/2007 LOC PRIM [id number] 12/24/200208/13 DEGENERATIVE SKIN DISORD 12/24/2002 VERTEBRAL FX [...] as of this encounter (statuses as of 11/01/2023) Immunizations Name Administration Dates Next Due COVID-19 [...] Telephone Encounter - Halie Stinson LPN - 11/01/2023 12:12 PM EDT New patient triage in progress. * Telephone Encounter - Amanda Hayden OSA - 11/01/2023 11:55 AM EDT Rich needs scheduled for Hematology for: 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) [N18.4, D63.1] Scheduling Notes SP documented in this encounter Plan of Treatment Upcoming Encounters Date Type Department Care Team (Late st Contact Info) Description 11/13/2023 6:30 AM EDT Anticoagulation Centralized Clinical Pharmacy Services, Ilya Lafleur [address] [place] [address] [place] [address] Ccps, [address] [place] [address] 11/20/2023 2:00 PM EDT Office Visit Nephrology, [facility] [address] [facility] [place] [address] Jennifer Agustin MD [address] [facility] [place] [address] 01/19/2024 9:00 AM EST Office Visit Gastroenterology [address] [place] [address] Moon Avila CRNP [address] [place] [address] 02/20/2024 12:30 PM EST Nurse Only Ancillary [address] [place] [address] [place], Nurse Annual [address] [place] [address] 03/08/2024 2:30 PM EST Office Visit Family Medicine [address] [place] [phone] Jocelyne Desai, [address] [place] [address] Scheduled Procedures Name Priority Associated Diagnoses Date/Ti [...] 08/23/2023, 1005/2022, 11/09/2022, Additional history exists GFR 04/18/2024 10/20/2023, 09/13, 09/26/2023, Additional history exists Albumin/Creatinine Ratio 07/17/2024 024, 11/16/2022, 05/13/2022, Additional history exists CKD PHOS USE SMARTSET 34078 08/22/202408/13, 07/18/2023, 07/03/2023, Additional history exists CKD HGB USE SMARTSET 06228 10/19/202410/19, 10/02/2023, 08/23/2023, Additional history exists Depression Screening 10/30/2024 10/31/2023 DTap/Tdap Vaccines (3 - Td or Tdap) [...] this encounter Medical Devices Implanted Type Area Plate Grainer Apprentice Device Identifier Shelf Expiration Date Model / Serial / Lot Shaft Fibula 6cm 278591 - [id number] Implanted:Qty: 1 on 09/05/2008 at OR [facility] Tissue - Human N/A: Spine Cervical MUSCULOSKELETAL TRANSPLANT FND 04/20/2010 283661 / [id number] 0P / Stent Eso Gw 22x70 76930-564 - [id number] Implanted:Qty: 1 on 01/21/2008 at OR [facility] N/A: Esophagus ALVEOLUS INC 04/12/2009 69659-040 / / [id number] Depuy Uniplate 32 Implanted:Qty: 1 on 09/05/2008 [...] Plate Zach 3 Level Ti 54mm - [id number] Implanted:Qty: 1 on 05/07/2010 at OR [facility] N/A: Neck JNJ : DEPUY SPINE [id number] 54 / / Screw Zach Const St Ti 14mm - [id number] Implanted:Qty: 4 on 05/07/2010 at OR [facility] N/A: Neck JNJ : DEPUY SPINE [id number] 14 / / Screw 3.5x14 Mntr Fa [id number] - [id number] Implanted:Qty: 8 on 05/07/2010 at OR [facility] N/A: Spine Cervical JNJ : ETHICON CARDIOVATIONS [id number] / / Jarrell [id number] - [id number] Implanted:Qty: 1 on 05/07/2010 at OR [facility] N/A: Spine Cervical JNJ : ETHICON CARDIOVATIONS [id number] / / Screw Inner Mntr [id number] - [id number] Implanted:Qty: 8 on 05/07/2010 at OR [facility] N/A: Spine Cervical JNJ : ETHICON CARDIOVATIONS [id number] / / Envista Intraocular Lens Implanted:Qty: 1 on 03/10/2022 by Liang Marshall MD at OR [facility] Right: Eye BAUSCH & LOMB 08/13/2023 [id number] / [id number] / [id number] Envista Intraocular Lens Implanted:Qty: 1 on 03/24/2022 by Liang Marshall MD at OR [facility] Left: Eye BAUSCH & LOMB 07/13/2024 [id number] / [id number] / [id number] documented as of this encounter Advance Directives Documents on File Type Date Recorded Patient Customer Management Specialist Expl anation POL 01/26/2021 [place] OR [facility] [...] Power of Attor andrew? No Care Teams Medical Imaging Technologist Relationship Specialty Start Date End Date Jocelyne Desai DO [address] [place] [address] [place] [address] PCP - General Internal Medicine 11/09/16 documented as of this encounter
--- OUTSIDE RECORDS SUMMARY | 2024-01-29 17:59 | External Medical Summary | Summary of Care ---
Author Name Unknown Organization [facility] Address [address] [facility] [place] [address] Phone [phone] Care Team Providers Care Emergency Medicine Physician Name Role Phone Jocelyne Desai DO Primary Care Provider [phone] Reason for Visit * Reason Onset Date Comments Home Health 10/25/2023 Encounter Details Date Type Department Care Team (Late st Contact Info) Description 10/25/2023 Telephone Family Medicine [address] [place] [address] Jocelyne Desai DO [address] [place] [address] [place] [address] Home Health Allergies No [...] [facility] for wound care [phone] Televideo if needed. Problem Noted Date Diagnosed [...] ICD-10 update of inactive term PLATT RESEARCH OTHER*[id number] 02/20/2007 ADVANCE DIRECTIVE INFORMATION 01/19/2005 Overview: Yes, [...] 11/17/19 23 LUMBAGO 12/24/2002 05/09/2007 LOC PRIM [id number] 12/24/200208/13 DEGENERATIVE SKIN DISORD 12/24/2002 VERTEBRAL FX [...] Telephone Encounter - Janice Shaw LPN - 11/01/2023 1:37 PM EDT Pt saw Dr. Desai today. * Telephone Encounter - Jocelyne Desai DO - 10/26/2023 10:59 AM EDT Draw labs today or KENNY. Orders placed by case management. Any rales on exam? Pulse ox? * Telephone Encounter - Zahra Morillo LPN - 10/25/2023 1:49 PM EDT Resumption of Care Order Request: Anabelle PUENTE, Calling from: Josse Pope Patient was Admitted to: [facility], for: Blood transfusion from 09/26 to 10/23 Patient will be resuming: Long Term Last Office Visit: 09/27/2023 (in office), Visit date not found (telemedicine) Has patient been scheduled or seen in the office for a follow up visit: Yes- on10/31 Advised that orders will be signed by Jocelyne Desai DO and to fax to the office for signature. Anabelle wanted to note that there was an 8 pound weight gain from 10/12 to today 10/25/2023. No edema noted. He is more SOB than usual but he stated that this happened in the hospital with the low blood count and may still be recovering from this. Anabelle also asking that a message be sent to Dr. Mccauley, she was under the impression that patientwas to have labs done every 7-10 days, the last labs were the ones that triggered him to go to the ER. She stated that they need a new order to specifically state every 7-10 days as the last order was a one time order. [facility] Nurses documented in this encounter Plan of Treatment Upcoming Encounters Date Type Department Care Team (Late st Contact Info) Description 11/13/2023 6:30 AM EDT Anticoagulation Centralized Clinical Pharmacy Services, [place]ie Lafleur [address] [place] [address] [place] [address] [place] [address] 11/20/2023 2:00 PM EDT Office Visit Nephrology, [facility] [place] [address] Jennifer Agustin MD 200 [facility] [place] [address] 01/19/2024 9:00 AM EST Office Visit Gastroenterology [address] [place] [address] Moon Avila CRNP [address] [place] [address] 02/20/2024 12:30 PM EST Nurse Only Ancillary [address] [place] [address] [place], Nurse Annual [address] [place] [address] 03/08/2024 2:30 PM EST Office Visit Family Medicine [address] [place] [phone] Jocelyne Desai, [address] [place] [address] Scheduled Procedures Name Priority Associated Diagnoses Date/Ti [...] 08/23/2023, 05/2022, 11/09/2022, Additional history exists GFR 04/18/2024 10/20/2023, 09/13, 09/26/2023, Additional history exists Albumin/Creatinine Ratio 07/17/2024 024, 11/16/2022, 05/13/2022, Additional history exists CKD PHOS USE SMARTSET 47613 08/22/2024 07/, 07/18/2023, 07/03/2023, Additional history exists CKD HGB USE SMARTSET 17403 10/19/202410/19, 10/02/2023, 08/23/2023, Additional history exists Depression [...] this encounter Medical Devices Implanted Type Area Shear Tender Device Identifier Shelf Expiration Date Model / Serial / Lot Shaft Fibula 6cm [id number] - [id number] Implanted:Qty: 1 on 09/05/2008 at [place] [facility] [place] Tissue - Human N/A: Spine Cervical MUSCULOSKELETAL TRANSPLANT FND 04/20/2010 749033 / [id number] 0P / Stent Eso Gw 22x70 89236-914 - [id number] Implanted:Qty: 1 on 01/21/2008 at OR [facility] [place] N/A: Esophagus ALVEOLUS INC 04/12/2009 60347-544 / / [id number] Depuy Uniplate 32 Implanted:Qty: 1 on 09/05/2008 [...] C[facility] [place] N/A: Neck 1773-06-146 / [id number] / Plate Zach 3 Level Ti 54mm - [id number] Implanted:Qty: 1 on 05/07/2010 at [place] [facility] [place] N/A: Neck JNJ : DEPUY SPINE [id number] 54 / / Screw Zach Const St Ti 14mm - [id number] Implanted:Qty: 4 on 05/07/2010 at OR [facility] [place] N/A: Neck JNJ : DEPUY SPINE [id number] 14 / / Screw 3.5x14 Mntr Fa [id number] - [id number] Implanted:Qty: 8 on 05/07/2010 at [place] [facility] [place] N/A: Spine Cervical JNJ : ETHICON CARDIOVATIONS [id number] / / Jarrell [id number] - [id number] Implanted:Qty: 1 on 05/07/2010 at [place] [facility] [place] N/A: Spine Cervical JNJ : ETHICON CARDIOVATIONS [id number] / / Screw Inner Mntr [id number] - [id number] Implanted:Qty: 8 on 05/07/2010 at [place] [facility] N/A: Spine Cervical JNJ : ETHICON CARDIOVATIONS [id number] / / Envista Intraocular Lens Implanted:Qty: 1 on 03/10/2022 by Liang Marshall MD at OR [facility] Right: Eye BAUSCH & LOMB 08/13/2023 [id number] / [id number] / [id number] Envista Intraocular Lens Implanted:Qty: 1 on 03/24/2022 by Liang Marshall MD at OR [facility] Left: Eye BAUSCH & LOMB 07/13/2024 [id number] / [id number] / [id number] documented as of this encounter Advance Directives Documents on File Type Date Recorded Patient Memorial 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 No Care Teams Emergency Medicine Physician Relationship Specialty Start Date End Date Jocelyne Desai DO [address] [place] [address] [place] [address] PCP - General Internal Medicine 11/09/16 documented as of this encounter
--- OUTSIDE RECORDS SUMMARY | 2024-01-29 17:59 | External Medical Summary | Summary of Care ---
Author Name Unknown Organization [facility] Address [address] [facility] [place] [address] Phone [phone] Care Team Providers Care Electric Truck Driver Name Role Phone Jocelyne Desai Primary Care Provider [phone] Reason for Visit * Reason Onset Date Comments Referral 11/01/2023 SP 10-Day Encounter Details Date Type Department Care Team (Late st Contact Info) Description 11/01/2023 New Patient Triage (PERFECT BINDER SETTER USE ONLY) Hematology/Oncology [facility] [phone] Nichelle Booker CRNP [address] [place] [address] Referral (SP 10-Day) Allergies No known [...] connectivity [facility] for wound care [phone] Televideo if needed. Problem Noted Date Diagnosed [...] ICD-10 update of inactive term PLATT RESEARCH OTHER*[id number] 02/20/2007 ADVANCE DIRECTIVE INFORMATION 01/19/2005 Overview: Yes, [...] early next week will need [facility] provider recheck Multiple and open [...] 11/17/19 23 LUMBAGO 12/24/2002 05/09/2007 LOC PRIM [id number] 12/24/200208/13 DEGENERATIVE SKIN DISORD 12/24/2002 VERTEBRAL FX [...] as of this encounter Progress Notes * Halie Stinson LPN - 11/01/2023 12:22 PM EDT New Patient Triage What is the diagnosis/reason for referral?: Anemia due to stage 4 chronic kidney disease Enter order ID here: [id number] Specialty specific documentation: Hematology/Oncology NEW PATIENT - HEMATOLOGY/ONCOLOGY SPECIALTY TRIAGE Triage needed?: Yes Referring provider name: Dr. Lloyd DO Confirmation of diagnosis: No TRIAGE PLAN: Baseline/staging imaging complete: No Labs available: Yes Please see Labs scanned in under Media: 10/27/2023 and 10/24/2023 Labs done at [facility] under Care Everywhere, 10/24/2023 Referral to other specialty recommended (ie. Surgery, outpatient infusion): No Additional triage comments: Please see OV 11/01/2023 Dr. Desai Discharge Summary from [facility] ED scanned in under Media, 10/24/2023 documented in this encounter Plan of Treatment Upcoming Encounters Date Type Department Care Team (Late st Contact Info) Description 11/13/2023 6:30 AM EDT Anticoagulation Centralized Clinical Pharmacy Services, Ilya Lafleur [address] [place] [address] [place] [address] [place] [address] 11/20/2023 2:00 PM EDT Office Visit Nephrology, [facility] 200 [facility] [place] [address] Jennifer Agustin MD [address] [place] [address] 01/19/2024 9:00 AM EST Office Visit Gastroenterology [address] [place] [address] Moon Avila CRNP [address] [place] [address] 02/20/2024 12:30 PM EST Nurse Only Ancillary [address] [place] [address] [place], Nurse [address] [place] [address] 03/08/2024 2:30 PM EST Office Visit Family Medicine [address] [place] [phone] [address] [place] [address] Scheduled Procedures Name Priority Associated Diagnoses Date/Ti [...] Additional history exists CKD PHOS USE SMARTSET 18327 08/22/202408/13, 07/18/2023, 07/03/2023, Additional history exists CKD HGB USE SMARTSET 66449 10/19/202410/19, 10/02/2023, 08/23/2023, Additional history exists Depression [...] this encounter Medical Devices Implanted Type Area Stone Lathe Operator Device Identifier Shelf Expiration Date Model / Serial / Lot Shaft Fibula 6cm [id number] - [id number] Implanted:Qty: 1 on 09/05/2008 at OR [facility] Tissue - Human N/A: Spine Cervical MUSCULOSKELETAL TRANSPLANT FND 04/20/2010 [id number] / [id number] 0P / Stent Eso Gw 22x70 79783-634 - [id number] Implanted:Qty: 1 on 01/21/2008 at OR [facility] N/A: Esophagus [employer]VEOLUS INC 04/12/2009 77754-178 / / [id number] Depuy Uniplate 32 Implanted:Qty: 1 on 09/05/2008 [...] Plate Zach 3 Level Ti 54mm - [id number] Implanted:Qty: 1 on 05/07/2010 at OR [facility] N/A: Neck JNJ : DEPUY SPINE [id number] 54 / / Screw Zach Const St Ti 14mm - [id number] Implanted:Qty: 4 on 05/07/2010 at OR [facility] N/A: Neck JNJ : DEPUY SPINE [id number] 14 / / Screw 3.5x14 Mntr Fa [id number] - [id number] Implanted:Qty: 8 on 05/07/2010 at OR [facility] N/A: Spine Cervical JNJ : ETHICON CARDIOVATIONS [id number] / / Jarrell [id number] - [id number] Implanted:Qty: 1 on 05/07/2010 at OR [facility] N/A: Spine Cervical JNJ : ETHICON CARDIOVATIONS [id number] / / Screw Inner Mntr [id number] - [id number] Implanted:Qty: 8 on 05/07/2010 at OR [facility] N/A: Spine Cervical JNJ : ETHICON CARDIOVATIONS [id number] / / Envista Intraocular Lens Implanted:Qty: 1 on 03/10/2022 by Liang Marshall MD at OR [facility] Right: Eye BAUSCH & LOMB 08/13/2023 [id number] / [id number] / [id number] Envista Intraocular Lens Implanted:Qty: 1 on 03/24/2022 by Liang Marshall MD at OR [facility] Left: Eye BAUSCH & LOMB 07/13/2024 [id number] / [id number] / [id number] documented as of this encounter Advance Directives Documents on File Type Date Recorded Patient Coyote Hunter Expl anation POLST 01/26/2021 [place] OR [facility] FOR [...] of Attor andrew? No Care Teams Electric Truck Driver Relationship Specialty Start Date End Date Jocelyne Desai DO [address] [place] [address] [place] [address] PCP - General Internal Medicine 11/09/16 documented as of this encounter
--- OUTSIDE RECORDS SUMMARY | 2024-01-29 17:59 | External Medical Summary | Summary of Care ---
Author Name Unknown Organization [facility] Address [address] [facility] [place] [address] Phone [phone] Care Team Providers Care Prop And Scenery Maker Name Role Phone DesaiElissaJocelynejohn Briggs Primary Care Provider + [phone] Reason for Visit * Reason Comments Outpatient Testing Encounter Details Date Type Department Care Team (Late st Contact Info) Description 11/01/2023 11:50 AM EDT Laboratory Laboratory [address] [place] [phone] [address] [place] [address] Chronic kidney disease, stage 3b (HCC); Vitamin D deficiency; 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 kidney disease (HCC); Hypokalemia; Chronic kidney disease (CKD), stage IV (severe) (HCC); 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 chronic kidney disease (HCC); JORGE (acute kidney injury) ([facility]); Anemia due to stage 4 chronic kidney [...] Good connectivity [facility] for wound care [phone] Televideo if needed. 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 1 Status [...] ICD-10 update of inactive term PLATT RESEARCH OTHER*[id number] 02/20/2007 ADVANCE DIRECTIVE INFORMATION 01/19/2005 Overview: Yes, [...] 11/17/19 23 LUMBAGO 12/24/2002 05/09/2007 LOC PRIM [id number]-T-[id number] 12/24/200208/13 DEGENERATIVE SKIN DISORD 12/24/2002 VERTEBRAL FX [...] MCG/0.3 mL, 12 YRS AND ABOVE, IM ([facility]) 11/16/2022 Covid-19, Mrna, Lnp-s, Pf, B [...] Centralized Clinical Pharmacy Services, Ilya Lafleur [address] [place] [address] [place] [address] [facility], [address] [place] [address] 11/20/2023 2:00 PM EDT Office Visit Nephrology, Cely Zaldivar [address] [facility] [place] [address] Jennifer Agustin MD [address] [place] [address] 01/19/2024 9:00 AM EST Office Visit Gastroenterology [address] [place] [address] Moon Avila CRNP [address] [facility] [address] 02/20/2024 12:30 PM EST Nurse Only Ancillary [address] [place] [address] [place], Nurse [address] [place] [address] 03/08/2024 2:30 PM EST Office Visit Family Medicine [address] [place] [phone] Jocelyne Desai [address] [place] [address] Pending Results Name Type Priority Associated Diagnoses Date /Time BASIC METABOLIC PANEL Lab Routine Chronic kidney disease, stage 3b (HCC) 11/01/2023 11:40 AM EDT MAGNESIUM Lab Routine Chronic kidney disease, stage 3b (HCC) 11/01/2023 11:40 AM EDT URINALYSIS WITH MICROSCOPIC EXAM Lab Routine Chronic kidney disease, stage 3b (HCC) 11/01/2023 11:40 AM EDT PROTEIN/ CREATININE RATIO, URINE Lab Routine Chronic kidney disease, stage 3b (HCC) 11/01/2023 11:40 AM EDT ALBUMIN / CREATININE RATIO, URINE Lab Routine Chronic kidney disease, stage 3b (HCC) 11/01/2023 11:40 AM EDT CBC WITH WBC DIFFERENTIAL Lab Routine Chronic kidney disease, stage 3b (HCC) 11/01/2023 11:40 AM EDT IRON SCREEN, INCLUDING TIBC Lab Routine Chronic kidney disease, stage 3b (HCC) 11/01/2023 11:40 AM EDT PTH Lab Routine Chronic kidney disease, stage 3b (HCC) 11/01/2023 11:40 AM EDT 25-HYDROXY VITAMIN D Lab Routine Chronic kidney disease, stage 3b (HCC) Vitamin D deficiency 11/01/2023 11:40 AM EDT PHOSPHORUS Lab Routine Chronic kidney disease, stage 3b (HCC) 11/01/2023 11:40 AM EDT ALBUMIN Lab Routine JORGE (acute kidney injury) (HCC) 11/01/2023 11:40 AM EDT CBC Lab Routine Chronic kidney disease, stage 3b (HCC) 11/01/2023 11:40 AM EDT DIFFERENTIAL, AUTOMATED Lab Routine Chronic kidney disease, stage 3b (HCC) 11/01/2023 11:40 AM EDT Scheduled Procedures Name Priority Associated [...] 10/0 05/2022, 11/09/2022, Additional history exists GFR 04/18/2024 10/20/2023, 09/13, 09/26/2023, Additional history exists Albumin/Creatinine Ratio 07/17/2024 024, 11/16/2022, 05/13/2022, Additional history exists CKD PHOS USE SMARTSET 84099 08/22/202408/13, 07/18/2023, 07/03/2023, Additional history exists CKD HGB USE SMARTSET 47960 10/19/202410/19, 10/02/2023, 08/23/2023, Additional history exists Depression [...] this encounter Medical Devices Implanted Type Area Functional Architect Device Identifier Shelf Expiration Date Model / Serial / Lot Shaft Fibula 6cm [id number] - [id number] Implanted:Qty: 1 on 09/05/2008 at [place] [facility] [place] Tissue - Human N/A: Spine Cervical MUSCULOSKELETAL TRANSPLANT FND 04/20/2010 [id number] / [id number] 0P / Stent Eso Gw 22x70 [id number] - [id number] Implanted:Qty: 1 on 01/21/2008 at [place] [facility] [place] N/A: Esophagus [employer] 04/12/2009 [id number] / / [id number] Depuy Uniplate 32 Implanted:Qty: 1 on 09/05/2008 [...] Plate Zach 3 Level Ti 54mm - [id number] Implanted:Qty: 1 on 05/07/2010 at [place] [facility] [place] N/A: Neck JNJ : DEPUY SPINE [id number] / / Screw Zach Const St Ti 14mm - [id number] Implanted:Qty: 4 on 05/07/2010 at [place] [facility] [place] N/A: Neck JNJ : DEPUY SPINE [id number] / / Screw 3.5x14 Mntr Fa [id number] - [id number] Implanted:Qty: 8 on 05/07/2010 at [place] [facility] [place] N/A: Spine Cervical JNJ : ETHICON [employer]ATIONS [id number] / / Jarrell [id number] - [id number] Implanted:Qty: 1 on 05/07/2010 at [place] [facility] [place] N/A: Spine Cervical JNJ : ETHICON CARDIOVATIONS [id number] / / Screw Inner Mntr [id number] - [id number] Implanted:Qty: 8 on 05/07/2010 at [place] [facility] [place] N/A: Spine Cervical JNJ : ETHICON CARDI[employer]ATIONS [id number] / / Envista Intraocular Lens Implanted:Qty: 1 on 03/10/2022 by Liang Marshall MD at OR [facility] Right: Eye BAUSCH & LOMB 08/13/2023 [id number] / [id number] / [id number] Envista Intraocular Lens Implanted:Qty: 1 on 03/24/2022 by Liang Marshall MD at OR [facility] Left: Eye BAUSCH & LOMB 07/13/2024 [id number] / [id number] / [id number] documented as of this encounter Visit Diagnoses Diagnosis Chronic kidney disease, stage 3b (HCC) Vitamin D deficiency Unspecified vitamin D deficiency 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 kidney disease (HCC) Hypokalemia Hypopotassemia Chronic kidney disease (CKD), stage IV (severe) (HCC) Chronic kidney disease, Stage IV (severe) 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 chronic kidney disease (HCC) JORGE (acute kidney injury) (HCC) Acute kidney failure, unspecified 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) Kidney disease, chronic, stage IV (GFR 15-29 ml/min) (HCC) Chronic kidney disease, Stage IV (severe) documented in this encounter Advance Directives Documents on File Type Date Recorded Patient Make Up Girl Expl anation POLST 01/26/2021 [place] [facility] T[facility]AT[facility] [...] Power of Attor andrew? No Care Teams Prop And Scenery Maker Relationship Specialty Start Date End Date Jocelyne Desai DO [address] [place] [address] [place] [phone] PCP - General Internal Medicine 11/09/16 documented as of this encounter
--- OUTSIDE RECORDS SUMMARY | 2024-01-29 17:59 | External Medical Summary | Summary of Care ---
Author Name Unknown Organization [facility] Address [address] [facility] [place] [address] Phone [phone] Care Team Providers Care Management Psychologist Name Role Phone Jocelyne Desai DO Primary Care Provider [phone] Reason for Visit * Reason Onset Date Comments Appointment 11/01/2023 Hematology Encounter Details Date Type Department Care Team (Late st Contact Info) Description 11/01/2023 Telephone Family Medicine [address] [phone] Jocelyne Desai DO [address] [place] [address] [place] [address] Appointment (Hematology ) Allergies [...] different from the original. Good connectivity [facility] for wound care [phone] Televideo if needed. Problem Noted Date Diagnosed [...] up with podiatry,. 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 1 Status [...] ICD-10 update of inactive term PLATT RESEARCH OTHER*[id number] 02/20/2007 ADVANCE DIRECTIVE INFORMATION 01/19/2005 Overview: Yes, [...] 11/17/19 23 LUMBAGO 12/24/2002 05/09/2007 LOC PRIM [id number]-M-NNM 12/24/200208/13 DEGENERATIVE SKIN DISORD 12/24/2002 VERTEBRAL FX [...] Centralized Clinical Pharmacy Services, Ilya Lafleur [address] [place] [address] [place] [address] [facility], [address] [place] [address] 11/20/2023 2:00 PM EDT Office Visit Nephrology, [facility] [address] [facility] [place] [address] Jennifer Agustin MD [address] [facility] [place] [address] 01/19/2024 9:00 AM EST Office Visit Gastroenterology [address] [place] [address] Moon Avila CRNP [address] [place] [address] 02/20/2024 12:30 PM EST Nurse Only Ancillary [address] [place] [address] [place], Nurse Annual [address] [place] [address] 03/08/2024 2:30 PM EST Office Visit Family Medicine [address] [place] [phone] Jocelyne Desai, [address] [place] [address] Scheduled Procedures Name Priority Associated Diagnoses Date/Ti [...] Additional history exists CKD PHOS USE SMARTSET 57825 08/22/202408/13, 07/18/2023, 07/03/2023, Additional history exists CKD HGB USE SMARTSET 86929 10/19/202410/19, 10/02/2023, 08/23/2023, Additional history exists Depression [...] this encounter Medical Devices Implanted Type Area Clod Puller Device Identifier Shelf Expiration Date Model / Serial / Lot Shaft Fibula 6cm [id number] - [id number] Implanted:Qty: 1 on 09/05/2008 at [place] [facility] [place] Tissue - Human N/A: Spine Cervical MUSCULOSKELETAL TRANSPLANT FND 04/20/2010 [id number] / [id number] 0P / Stent Eso Gw 22x70 [id number] - [id number] Implanted:Qty: 1 on 01/21/2008 at [place] [facility] [place] N/A: Esophagus [employer] 04/12/2009 [id number] / / [id number] Depuy Uniplate 32 Implanted:Qty: 1 on 09/05/2008 [...] Plate Zach 3 Level Ti 54mm - [id number] Implanted:Qty: 1 on 05/07/2010 at [place] [facility] [place] N/A: Neck JNJ : DEPUY SPINE [id number] / / Screw Zach Const St Ti 14mm - [id number] Implanted:Qty: 4 on 05/07/2010 at [place] [facility] [place] N/A: Neck JNJ : DEPUY SPINE [id number] 14 / / Screw 3.5x14 Mntr Fa [id number] - [id number] Implanted:Qty: 8 on 05/07/2010 at [place] [facility] [place] N/A: Spine Cervical JNJ : ETHICON CARDIOVATIONS [id number] / / Jarrell [id number] - [id number] Implanted:Qty: 1 on 05/07/2010 at [place] [facility] [place] N/A: Spine Cervical JNJ : ETHICON CARDIOVATIONS [id number] / / Screw Inner Mntr [id number] - [id number] Implanted:Qty: 8 on 05/07/2010 at [place] [facility] [place] N/A: Spine Cervical JNJ : ETHICON CARDIOVATIONS [id number] / / Envista Intraocular Lens Implanted:Qty: 1 on 03/10/2022 by Liang Marshall MD at OR [facility] Right: Eye BAUSCH & LOMB 08/13/2023 [id number] / [id number] / [id number] Envista Intraocular Lens Implanted:Qty: 1 on 03/24/2022 by Liang Marshall MD at OR [facility] Left: Eye BAUSCH & LOMB 07/13/2024 [id number] / [id number] / [id number] documented as of this encounter Advance Directives Documents on File Type Date Recorded Patient Finish Mender Expl anation POL 01/26/2021 [place] OR [facility] TREATMENT [...] Power of Attor andrew? No Care Teams Management Psychologist Relationship Specialty Start Date End Date Jocelyne Desai DO [address] [place] [address] [place] [address] PCP - General Internal Medicine 11/09/16 documented as of this encounter
--- OUTSIDE RECORDS SUMMARY | 2024-01-29 17:59 | External Medical Summary | Summary of Care ---
Author Name Unknown Organization [facility] Address [address] [facility] [address] Phone [phone] Care Team Providers Care Bagger Meat Name Role Phone Jocelyne Desai DO Primary Care Provider + [phone] Reason for Referral * Evaluate & Treat - Unlimited Visits (Within 10 days (routine)) - Authorized Specialty Diagnoses / Procedures Referred By Mingo de paz Referred To Contact Hematology/Oncology / Hematology Oncology Diagnoses 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) Jocelyne Desai [address] [place] [address] Referral ID Status Reason Start Date Expiration Date Visits Requested Visits Authorized [id number] Authorized Specialty Services Required 11/01/2023 999 999 Question Answer Referral Priority Within 10 days (routine) Where should this appointment be scheduled? [facility] Reason for Referral Anemia Reason for Visit * Reason Onset Date Comments Hospital Follow-Up Pt states fee ling "okay". Medication Administration 11/01/2023 Flu an d/or Pneumo Inj Hospital Follow-Up 11/01/2023 Encounter Details Date Type Department Care Team (Late st Contact Info) Description 11/01/2023 11:10 AM EDT Office Visit Family Medicine [address] [place] [phone] Jocelyne Desai [address] [place] [address] Hospital discharge follow-up*; Need for prophylactic vaccination and inoculation against influenza; Kidney disease, chronic, stage IV (GFR 15-29 ml/min) (HCC); 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) Allergies No known [...] in the morning. 30 Capsule 4 Active Midodrine HCl 2.5 MG Oral [...] in the morning. 100 Tablet 1 4 Active Potassium Chloride Candi ER 20 MEQ Oral Tablet Extended Release Take 1 Tablet by mouth in the morning. 100 Tablet 1 4 Active Sennosides-Docu sate Sodium 8.6-50 MG Oral Tablet (Senna S) Take 1 Tablet by mouth in the morning. 30 Tablet 4 11/01/19 24 Discontinued Torsemide 20 MG Oral Tablet (Demadex) Take 1 Tablet by mouth in the morning and 1 Tablet before bedtime. 4 11/01/19 Discontinued(Ref ill) Potassium Chloride Candi ER 20 MEQ Oral Tablet Extended Release Take 2 Tablets by mouth in the morning and 2 Tablets before bedtime. 09/06/23 Take 2 tablets in the morning 1 tablet before bed. 4 11/01/19 24 Discontinued(Ref ill) documented as of this encounter (statuses as of 11/01/2023) Active Problems Patient Care Coordination No te Formatting of this note migh t be different from the original. Good connectivity [facility] care [phone] Televideo if needed. Problem Noted Date Diagnosed [...] with podiatry,. Letter in chart from [facility] they were unable to get in [...] ICD-10 update of inactive term PLATT RESEARCH OTHER*[id number] 02/20/2007 ADVANCE DIRECTIVE INFORMATION 01/19/2005 Overview: Yes, [...] 11/17/19 23 LUMBAGO 12/24/2002 05/09/2007 LOC PRIM [id number] 12/24/200208/13 DEGENERATIVE SKIN DISORD 12/24/2002 VERTEBRAL FX [...] Sign Reading Time Taken Comments Blood Pressure 124/70 11/01/2023 10:54 AM EDT Pulse 88 11/01/2023 10:54 AM EDT Temperature - - Respiratory Rate - - Oxygen Saturation 100% 11/01/2023 10:54 AM EDT Inhaled Oxygen Concentration - - Weight 97.1 kg (214 lb) 11/01/2023 10:54 AM EDT Height - - Body Mass Index 29.86 09/14/2023 11:47 AM EDT documented in this encounter Progress Notes * Jocelyne Desai, - 11/01/2023 11:05 AM EDT SUBJECTIVE: Lg Cooley is a 73 year old male. Chief Complaint Patient presents with Hospital Follow-Up Pt states feeling "okay". Medication Administration Flu and/or Pneumo Inj Hospital Follow-Up Recent Admission: Patient was recently admitted to [facility]. The date of discharge was 10/25/23. Discharge report receivedand reviewed. Admitted with symptomatic anemia. He was transfused 2U PRBC. Hemoglobin was 7.3 on discharge. HPI: Lg Cooley presents today for HD follow up. Today he reports feeling okay. Energy is about the same. He is sleeping a lot. He feels a little short of breath. He will be meeting with meeting with nephrology next week to discuss dialysis options. No bleeding since he has been home. Appetite is good. Weight is up to 214#. He continues to see the wound clinic. He is taking his torsemide MWF. LE edema is worsening. He notes his mother had anemia of an unknown etiology requiring iron infusions/blood transfusions. Patient Active Problem List Diagnosis SPINAL STENOSIS-LUMBAR ADVANCE DIRECTIVE INFORMATION Vitamin D deficiency Cervical spinal stenosis Type 2 diabetes mellitus with hemoglobin A1c goal of less than 7.5% ([facility]) HTN, goal below 140/90 DYSLIPIDEMIA, GOAL LDL BELOW 100 [place] RESEARCH OTHER*[id number] Erectile dysfunction DM neuropathy, type II diabetes mellitus ([facility]) Paroxysmal SVT (supraventricular tachycardia) ([facility]) Cardiac pacemaker in situ Venous insufficiency of both lower extremities Microalbuminuric diabetic nephropathy ([facility]) Chronic atrial fibrillation ([facility]) Peripheral sensory neuropathy Vitamin B12 deficiency Cerebrovascular disease, arteriosclerotic, 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 ([facility]) Type 2 diabetes, controlled, with peripheral neuropathy ([facility]) Type 2 diabetes mellitus with peripheral vascular disease ([facility]) Persistent proteinuria H/O gastric bypass technician terminal and repeater current use of 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 Complex sleep apnea syndrome Nocturnal hypoxemia Type 2 diabetes mellitus with stage 3b chronic kidney disease, without long-term current use of insulin ([facility]) Sleep apnea treated with nocturnal BiPAP Hyperparathyroidism, secondary renal ([facility]) Diabetes mellitus due to underlying condition with severe nonproliferative diabetic retinopathy with macular edema, unspecified eye ([facility]) 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 kidney disease ([facility]) Esophageal obstruction S/P angioplasty with stent 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, without long-term current use of insulin ([facility]) Chronic kidney disease, stage 3b ([facility]) Non-pressure chronic ulcer of other part of right foot with unspecified severity ([facility]) Acquired absence of right great toe ([facility]) 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, with fat layer exposed ([facility]) History of MD (myocardial infarction) Trigger ring finger of left hand Full code status Calculus of gallbladder without cholecystitis without obstruction Stasis ulcer ([facility]) MRSA (methicillin resistant Staphylococcus aureus) Orthostatic hypotension Pressure injury of buttock, stage 2 ([facility]) Atrial fibrillation (HCC) SVT (supraventricular tachycardia) ([facility]) Current Outpatient Medications Medication Sig Dispense [...] in the morning 1 tablet before bed. Vitron-C 65-125 MG Oral Tablet (Iron-Vitamin C 65-125 mg per tab) Take 1 Tablet by mouth in the morning. Vitamin D3 10 MCG (400 UNIT) Oral Tablet Chewable Take by mouth. Doxycycline Hyclate 100 MG Oral Tablet Delayed Release Take 1 Tablet by mouth in the morning and 1 Tablet before bedtime. Sennosides-Docusate Sodium 8.6-50 MG Oral Tablet (Senna S) Take 1 Tablet by mouth in the morning. (Patient not taking: Reported on 09/27/2023) 30 Tablet 0 No current facility-administered medications for this visit. Current and discharge medications have been reconciled. Review of patient's allergies indicates: No Known Allergies OBJECTIVE: BP 124/70 | Pulse 88 | Wt 97.1 kg (214 lb) | SpO2 100% | BMI 29.86 kg/m | BSA 2.21 m Review Of Systems: Skin: (+) sees the wound clinic Eyes: negative Ears/Nose/Throat: negative Respiratory: negative Cardiovascular: negative Gastrointestinal: negative Genitourinary: negative Musculoskeletal: negative Neurologic: negative Psychiatric: negative Hematologic/Lymphatic/Immunologic: (+) anemia Endocrine: negative PHYSICAL EXAM: General: alert, healthy, no distress, well nourished, and well developed Neck: supple, no adenopathy, thyroid normal size, non-tender, without nodularity Heart: regular rate & rhythm and no murmur Lungs: chest symmetric with normal AP diameter, no chest deformities noted, normal respiratory rateand rhythm, lungs clear to auscultation Abdomen: abdomen soft and non-tender Extremities: moderate edema of bilateral LE to the level of the knees Neuro Exam: alert & oriented x 3 with fluent speech, no focal motor/sensory deficits ASSESSMENT/PLAN: Hospital discharge follow-up (Primary) - DISCH MED RECON CUR MED LIS Need for prophylactic vaccination and inoculation against influenza - INFLUENZA VAC., TRIVALENT, HD, PF, 65 AND ABOVE, 0.5 ML IM (FLUZONE HD) Kidney disease, chronic, stage IV (GFR 15-29 ml/min) (HCC) - he will be meeting with nephrology next week to discuss dialysis options. - BASIC METABOLIC PANEL; Future; Expected date: 11/01/2023 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) - refer to hematology for evaluation. He will likely require Procrit but may also require transfusion. Of note, his mother had problems with anemia - he says they were never able to determine why she had it. - CBC WITH WBC DIFFERENTIAL; Future; Expected date: 11/01/2023 - HEMATOLOGY/ONCOLOGY REFERRAL OP Other orders - Torsemide 20 MG Oral Tablet (Demadex); Take 1 Tablet by mouth in the morning. - Potassium Chloride Candi ER 20 MEQ Oral Tablet Extended Release; Take 1 Tablet by mouth in the morning. Follow Up: Return for as scheduled. | For: as scheduled I spent a total of 40-54 minutes (exact time 40 mins) minutes on the date of service in preparation, delivery, and documentation of the care provided to Lg Cooley excluding any time spent in performance of separately billed services. Jocelyne Desai DO documented in this encounter Plan of Treatment Upcoming Encounters Date Type Department Care Team (Late st Contact Info) Description 11/13/2023 6:30 AM EDT Anticoagulation Centralized Clinical Pharmacy Services, Ilya Lafleur [address] [place] [address] [place] [address] [facility], [address] [place] [address] 11/20/2023 2:00 PM EDT Office Visit Nephrology, [facility] [address] [facility] [place] [address] Jennifer Agustin MD [address] [facility] [place] [address] 01/19/2024 9:00 AM EST Office Visit Gastroenterology [address] [place] [address] Moon Avila CRNP [address] [place] [address] 02/20/2024 12:30 PM EST Nurse Only Ancillary [address] [place] [address] [place], Nurse [address] [place] [address] 03/08/2024 2:30 PM EST Office Visit Family Medicine [address] [place] [phone] Desai, Jocelyne Briggs, [address] [place] [address] Scheduled Procedures Name Priority Associated Diagnoses Date/Ti me COLONOSCOPY FLEXIBLE PROXIMA L DIAGNOSTIC Recall Screening for colon cancer Scheduled Referrals Name Type Priority Associated Diagnoses Orde r Schedule HEMATOLOGY/ONCOLOGY REFERRAL OP Referral Within 10 days (routine) 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) Ordered: 11/01/2023 Health Maintenance Due Date Last Done Comments [...] Additional history exists CKD PHOS USE SMARTSET 61517 08/22/202408/13, 07/18/2023, 07/03/2023, Additional history exists CKD HGB USE SMARTSET 83229 10/19/202410/19, 10/02/2023, 08/23/2023, Additional history exists Depression [...] encounter Medical Devices Implanted Type Area Senior Core Java Developer Device Identifier Shelf Expiration Date Model / Serial / Lot Shaft Fibula 6cm [id number] - [id number] Implanted:Qty: 1 on 09/05/2008 at [place] [facility] Tissue - Human N/A: Spine Cervical MUSCULOSKELETAL TRANSPLANT FND 04/20/2010 [id number] / [id number] / Stent Eso Gw 22x70 [id number] - [id number] Implanted:Qty: 1 on 01/21/2008 at OR [facility] N/A: Esophagus [employer]US INC 04/12/2009 12202-746 / / [id number] Depuy Uniplate 32 Implanted:Qty: 1 on 09/05/2008 at OR [facility] N/A: Spine Cervical TAMMY & TAMMY DEPUY 1897-02-302 / / Depuy Uniplate Screw 14mm Implanted:Qty: 2 on 09/05/2008 at OR [facility] N/A: Spine Cervical TAMMY & TAMMY DEPUY 1897-06-017 / / Depuy Lordotic Bengal Cage Implanted:Qty: 1 on 05/07/2010 at OR [facility] N/A: Neck 1773-06-146 / 1773-06-146 / Plate Zach 3 Level Ti 54mm - [id number] Implanted:Qty: 1 on 05/07/2010 at OR [facility] N/A: Neck JNJ : DEPUY SPINE [id number] / / Screw Zach Const St Ti 14mm - [id number] Implanted:Qty: 4 on 05/07/2010 at OR [facility] N/A: Neck JNJ : DEPUY SPINE [id number] / / Screw 3.5x14 Mntr Fa [id number] - [id number] Implanted:Qty: 8 on 05/07/2010 at OR [facility] N/A: Spine Cervical JNJ : ETHICON CARDIOVATIONS [id number] / / Jarrell [id number] - [id number] Implanted:Qty: 1 on 05/07/2010 at OR [facility] N/A: Spine Cervical JNJ : ETHICON CARDIOVATIONS [id number] / / Screw Inner Mntr [id number] - [id number] Implanted:Qty: 8 on 05/07/2010 at OR [facility] N/A: Spine Cervical JNJ : ETHICON CARDIOVATIONS [id number] / / Envista Intraocular Lens Implanted:Qty: 1 on 03/10/2022 by Liang Marshall MD at OR [facility] Right: Eye BAUSCH & LOMB 08/13/2023 [id number] / [id number] / [id number] Envista Intraocular Lens Implanted:Qty: 1 on 03/24/2022 by Liang Marshall MD at OR [facility] Left: Eye BAUSCH & LOMB 07/13/2024 [id number] / [id number] / [id number] documented as of this encounter Visit Diagnoses Diagnosis Hospital discharge follow-up- Primary Other follow-up examination Need for prophylactic vaccination and inoculation against influenza Kidney disease, chronic, stage IV (GFR 15-29 ml/min) (HCC) Chronic kidney disease, Stage IV (severe) 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) documented in this encounter Advance Directives Documents on File Type Date Recorded 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 No Care Teams Bagger Meat Relationship Specialty Start Date End Date Jocelyne Desai DO [address] [place] [address] [place] [address] PCP - General Internal Medicine 11/09/16 documented as of this encounter
--- OUTSIDE RECORDS SUMMARY | 2024-01-29 17:59 | External Medical Summary | Summary of Care ---
Author Name Unknown Organization [facility] Address [address] [facility] [address] Phone [phone] Care Team Providers Care Dimmer Board Operator Name Role Phone Jocelyne Desai Primary Care Provider [phone] Reason for Visit * Reason Onset Date Comments Referral 11/01/2023 SP 10-Day Encounter Details Date Type Department Care Team (Late st Contact Info) Description 11/01/2023 New Patient Triage (INSTRUCTIONAL SYSTEMS SPECIALIST USE ONLY) Hematology/Oncology [facility] [phone] Monty Jay CRNP [address] [place] [address] Referral (SP 10-Day) Allergies No known [...] connectivity [facility] for wound care [phone] Televideo if needed. Problem Noted Date Diagnosed [...] podiatry,. Letter in chart from [facility] pod[facility]ry they were unable to get in [...] ICD-10 update of inactive term PLATT RESEARCH OTHER*[id number] 02/20/2007 ADVANCE DIRECTIVE INFORMATION 01/19/2005 Overview: Yes, [...] [place] office early next week will need [facility] provider recheck Multiple and open [...] 11/17/19 23 LUMBAGO 12/24/2002 05/09/2007 LOC PRIM [id number] 12/24/200208/13 DEGENERATIVE SKIN DISORD 12/24/2002 VERTEBRAL FX [...] Progress Notes * Halie Stinson LPN - 11/02/2023 2:51 PM EDT Discussed care plan with patient or proxy?: Yes, Patient accepted offer for an appointment with on [place] 11/06/2023 at 1:30 pm. Provided patient with directions to SP office and SP telephone number. He verbalized understanding and denies any questions at this time. Communicated with patient on Date (mm/dd/yyyy): 11/02/2023 at Time ([facility]): 2:51 PM Additional imaging needed: No Additional imaging orders pended: No Further labs recommended and ordered: Yes Bone Marrow biopsy recommended:No [facility] [place] review recommended: No * Monty Jay CRNP - 11/01/2023 8:49 PM EDT Hematology New Referral Triage Note 73 y/o male referred for anemia d/t stage 4 CKD. Other PMH include DM type II, HTN, DLD, PLATT, venous insufficiency, atrial fibrillation on warfarin, CVA, s/p gastric bypass, MINERVA, hyperparathyroidism, CHF, chronic diabetic ulcer to right foot and past [place]. Patient was admitted to [facility] 10/21/23 - 10/25/23 with acute on [...] chronic kidney disease Enter order ID here: [id number] Specialty specific documentation: Hematology/Oncology NEW PATIENT - HEMATOLOGY/ONCOLOGY SPECIALTY TRIAGE Triage needed?: Yes Referring provider name: Dr. Lloyd DO Confirmation of diagnosis: No TRIAGE PLAN: Baseline/staging imaging complete: No Labs available: Yes Please see Labs scanned in under Media: 10/27/2023 and 10/24/2023 Labs done at [facility] under Care Everywhere, 10/24/2023 Referral to other specialty recommended (ie. Surgery, outpatient infusion): No Additional triage comments: Please see OV 11/01/2023 Dr. Desai Discharge Summary from [facility] ED scanned in under Media, 10/24/2023 [...] Office Visit Hematology/Oncology [facility] [address] [facility] [place] [phone] Monse Coates MD [address] [place] [address] [place] [phone] 11/13/2023 6:30 AM EDT Anticoagulation Centralized Clinical Pharmacy Services, Ilya Lafleur [address] [place] [address] [place] [address] [facility], [address] [place] [address] 11/20/2023 2:00 PM EDT Office Visit Nephrology, [place] [address] [facility] [place] [address] Jennifer Agustin MD [address] [facility] [place] [address] 01/19/2024 9:00 AM EST Office Visit Gastroenterology [address] [place] [address] Moon Avila CRNP [address] [place] [address] 02/20/2024 12:30 PM EST Nurse Only Ancillary [address] [place] [address] [place], Nurse Annual [address] [place] [address] 03/08/2024 2:30 PM EST Office Visit Family Medicine [address] [place] [phone] Jocelyne Desai[address] [place] [address] Scheduled Orders Name Type Priority Associated Diagnoses [...] Additional history exists CKD HGB USE SMARTSET 92282 10/31/202410/31, 11/01/2023, 10/20/2023, Additional history exists CKD PHOS USE SMARTSET 09057 10/31/202410/14, 08/23/2023, 07/18/2023, Additional history exists DTap/Tdap [...] this encounter Medical Devices Implanted Type Area Garbage Worker Device Identifier Shelf Expiration Date Model / Serial / Lot Shaft Fibula 6cm [id number] - [id number] Implanted:Qty: 1 on 09/05/2008 at OR [facility] Tissue - Human N/A: Spine Cervical MUSCULOSKELETAL TRANSPLANT FND 04/20/2010 [id number] / [id number] 0P / Stent Eso Gw 22x70 11911-116 - [id number] Implanted:Qty: 1 on 01/21/2008 at OR [facility] N/A: Esophagus ALVEOLUS INC 04/12/2009 13766-939 / / [id number] Depuy Uniplate 32 Implanted:Qty: 1 on 09/05/2008 at OR [facility] N/A: Spine Cervical TAMMY & TAMMY DEPUY 1897-02-302 / / Depuy Uniplate Screw 14mm Implanted:Qty: 2 on 09/05/2008 at OR [facility] N/A: Spine Cervical TAMMY & TAMMY DEPUY 1896--017 / / Depuy Lordotic Bengal Cage Implanted:Qty: 1 on 05/07/2010 at OR [facility] N/A: Neck 1773-06-146 / [id number] / Plate Zach 3 Level Ti 54mm - [id number] Implanted:Qty: 1 on 05/07/2010 at OR [facility] N/A: Neck JNJ : DEPUY SPINE [id number] / / Screw Zach Const St Ti 14mm - [id number] Implanted:Qty: 4 on 05/07/2010 at OR [facility] N/A: Neck JNJ : DEPUY SPINE [id number] 14 / / Screw 3.5x14 Mntr Fa [id number] - [id number] Implanted:Qty: 8 on 05/07/2010 at OR [facility] N/A: Spine Cervical JNJ : ETHICON CARDIOVATIONS [id number] / / Jarrell [id number] - [id number] Implanted:Qty: 1 on 05/07/2010 at OR [facility] N/A: Spine Cervical JNJ : ETHICON CARDIOVATIONS [id number] / / Screw Inner Mntr [id number] - [id number] Implanted:Qty: 8 on 05/07/2010 at OR [facility] N/A: Spine Cervical JNJ : ETHICON CARDIOVATIONS [id number] / / Envista Intraocular Lens Implanted:Qty: 1 on 03/10/2022 by Liang Marshall MD at OR [facility] Right: Eye BAUSCH & LOMB 08/13/2023 [id number] / [id number] / [id number] Envista Intraocular Lens Implanted:Qty: 1 on 03/24/2022 by Liang Marshall MD at OR [facility] Left: Eye BAUSCH & LOMB 07/13/2024 [id number] / [id number] / [id number] documented as of this encounter Procedures Procedure [...] >4.5 ng/mL 11/02/2023 4:10 AM EDT LAB[facility]ORY [facility] Blood Venous blood specimen / Unknown Venipuncture / Unknown 11/01/2023 11:40 AM EDT 11/01/2023 11:40 AM EDT Monty DEJESUS LAB BLOOD ORDER [facility] [address] [place] [address] * VITAMIN B12 (11/01/2023 11:40 AM EDT) Vitamin B12 951 232 - 1,245 pg/mL 11/02/2023 4:10 AM EDT [facility] Blood Venous blood specimen / Unknown Venipuncture / Unknown 11/01/2023 11:40 AM EDT 11/01/2023 11:40 AM EDT Monty DEJESUS LAB BLOOD ORDER [facility] [address] [place] [address] * LD (11/01/2023 11:40 AM EDT) [facility] LD 181 <=250 U/L 11/02/2023 3:2 7 AM EDT LAB[facility]ORY [facility] Blood Venous blood specimen / Unknown Venipuncture / Unknown 11/01/2023 11:40 AM EDT 11/01/2023 11:40 AM EDT Monty DEJESUS LAB BLOOD ORDER [facility] Performing Organization Address City/[facility]/ZIP Co de Phone Number LABOR[facility]ORY [facility] [address] [place] [address] * (ABNORMAL) RETICULOCYTE PANEL (11/01/2023 11:40 AM EDT) [facility] Reticulocyte Percent 1.20 0.80 - 1.90 % 11/01/2023 10:35 PM EDT LAB[facility] Absolute Reticulocyte 35.8 31.3 - 100.1 K/uL 11/01/2023 10:35 PM EDT LAB[facility] Immature Reticuloctye Fraction 16.9 2.5 - 20.6 % 11/01/2023 10:35 PM EDT LABORATORY C Reticulocyte Hemoglobin 27.3(L) 29.7 - 37.4 pg 11/01/2023 10:35 PM EDT [facility] Blood Venous blood specimen / Unknown Venipuncture / Unknown 11/01/2023 11:40 AM EDT 11/01/2023 11:40 AM EDT Monty DEJESUS LAB BLOOD ORDER [facility] [address] [place] [address] * FERRITIN (11/01/2023 11:40 AM EDT) [facility] Ferritin 121 30 - 400 ng/mL 11/02/2023 4:10 AM EDT LABORATORY [facility] Blood Venous blood specimen / Unknown Venipuncture / Unknown 11/01/2023 11:40 AM EDT 11/01/2023 11:40 AM EDT Monty Knutson Jhony DEJESUS LAB BLOOD ORDER [facility] [address] [place] [address] documented in this encounter Visit Diagnoses Diagnosis 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)- Primary documented in this encounter Advance Directives Documents on File Type Date Recorded 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 No Care Teams Dimmer Board Operator Relationship Specialty Start Date End Date Jocelyne Desai DO [address] [place] [address] [place] [address] PCP - General Internal Medicine 11/09/16 documented as of this encounter
--- OUTSIDE RECORDS SUMMARY | 2024-01-29 17:59 | External Medical Summary | Summary of Care ---
Author Name Unknown Organization [facility] Address [address] [facility] [place] [address] Phone [phone] Care Team Providers Care Air Export Coordinator Name Role Phone Jocelyne Desai Primary Care Provider [phone] Reason for Visit * Reason Onset Date Comments Referral 11/01/2023 SP 10-Day Encounter Details Date Type Department Care Team (Late st Contact Info) Description 11/01/2023 New Patient Triage (WHARF TENDER USE ONLY) Hematology/Oncology [facility] [address] [facility] [phone] Monty Jay CRNP [address] [place] [address] Referral (SP 10-Day) Allergies No known [...] different from the original. Good connectivity [facility] for wound care [phone] Televideo if needed. Problem Noted Date Diagnosed [...] with podiatry,. Letter in chart from [facility] podiatry they were unable to [...] ICD-10 update of inactive term PLATT RESEARCH OTHER*[id number] 02/20/2007 ADVANCE DIRECTIVE INFORMATION 01/19/2005 Overview: Yes, [...] [place] office early next week will need [facility] provider recheck Multiple and [...] 11/17/19 23 LUMBAGO 12/24/2002 05/09/2007 LOC PRIM [id number] 12/24/200208/13 DEGENERATIVE SKIN DISORD 12/24/2002 VERTEBRAL FX [...] Progress Notes * Monty Jay CRNP - 11/01/2023 8:49 PM EDT Hematology New Referral Triage Note 73 y/o male referred for anemia d/t stage 4 CKD. Other PMH include DM type II, HTN, DLD, PLATT, venous insufficiency, atrial fibrillation on warfarin, CVA, s/p gastric bypass, MINERVA, hyperparathyroidism, CHF, chronic diabetic ulcer to right foot and past UT. Patient was admitted to [facility] 10/21/23 - 10/25/23 with acute [...] chronic kidney disease Enter order ID here: [id number] Specialty specific documentation: Hematology/Oncology NEW PATIENT - HEMATOLOGY/ONCOLOGY SPECIALTY TRIAGE Triage needed?: Yes Referring provider name: Dr. Lloyd DO Confirmation of diagnosis: No TRIAGE PLAN: Baseline/staging imaging complete: No Labs available: Yes Please see Labs scanned in under Media: 10/27/2023 and 10/24/2023 Labs done at [facility] under Care Everywhere, 10/24/2023 Referral to other specialty recommended (ie. Surgery, outpatient infusion): No Additional triage comments: Please see OV 11/01/2023 Dr. Desai Discharge Summary from [facility] ED scanned in under Media, [...] Centralized Clinical Pharmacy Services, Ilya Lafleur [address] [place] [address] [place] [address] C[facility], [address] [place] [address] 11/20/2023 2:00 PM EDT Office Visit Nephrology, [facility] [address] [place] [address] Jennifer Agustin MD [address] [place] [address] 01/19/2024 9:00 AM EST Office Visit Gastroenterology [address] [place] [address] Moon Avila CRNP [address] [place] [address] 02/20/2024 12:30 PM EST Nurse Only Ancillary [address] [place] [address] [place], Nurse Annual [address] [place] [address] 03/08/2024 2:30 PM EST Office Visit Family Medicine [address] [place] [phone] Jocelyne Desai DO [address] [place] [address] [place] [address] Scheduled Orders Name Type Priority Associated Diagnoses Orde r Schedule FERRITIN Lab Routine 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) Ordered: 11/01/2023 RETICULOCYTE PANEL Lab Routine 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) Ordered: 11/01/2023 LD Lab Routine 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) Ordered: 11/01/2023 VITAMIN B12 Lab Routine 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) Ordered: 11/01/2023 FOLIC ACID Lab Routine 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) Ordered: 11/01/2023 ERYTHROPOIETIN (EPO) Lab Routine Anemia due to [...] 09/13, 09/26/2023, Additional history exists Albumin/Creatinine Ratio 07/17/20242 024, 11/16/2022, 05/13/2022, Additional history exists CKD PHOS USE SMARTSET 58796 08/22/202408/13, 07/18/2023, 07/03/2023, Additional history exists CKD HGB USE SMARTSET 42449 10/19/202410/19, 10/02/2023, 08/23/2023, Additional history exists Depression [...] this encounter Medical Devices Implanted Type Area Associate Director Of Nursing Device Identifier Shelf Expiration Date Model / Serial / Lot Shaft Fibula 6cm [id number] - [id number] Implanted:Qty: 1 on 09/05/2008 at [place] [facility] Tissue - Human N/A: Spine Cervical MUSCULOSKELETAL TRANSPLANT FND 04/20/2010 [id number] / [id number] / Stent Eso Gw 22x70 [id number] - [id number] Implanted:Qty: 1 on 01/21/2008 at OR [facility] N/A: Esophagus [employer] 04/12/2009 [id number] / / [id number] Depuy Uniplate 32 Implanted:Qty: 1 on 09/05/2008 [...] Plate Zach 3 Level Ti 54mm - [id number] Implanted:Qty: 1 on 05/07/2010 at OR [facility] N/A: Neck JNJ : DEPUY SPINE [id number] / / Screw Zach Const St Ti 14mm - [id number] Implanted:Qty: 4 on 05/07/2010 at OR [facility] N/A: Neck JNJ : DEPUY SPINE [id number] / / Screw 3.5x14 Mntr Fa [id number] - [id number] Implanted:Qty: 8 on 05/07/2010 at OR [facility] N/A: Spine Cervical JNJ : ETHICON CARDIOVATIONS [id number] / / Jarrell [id number] - [id number] Implanted:Qty: 1 on 05/07/2010 at OR [facility] N/A: Spine Cervical JNJ : ETHICON CARDIOVATIONS [id number] / / Screw Inner Mntr [id number] - [id number] Implanted:Qty: 8 on 05/07/2010 at OR [facility] N/A: Spine Cervical JNJ : ETHICON CARDIOVATIONS [id number] / / Envista Intraocular Lens Implanted:Qty: 1 on 03/10/2022 by Liang Marshall MD at OR [facility] Right: Eye BAUSCH & LOMB 08/13/2023 [id number] / [id number] / [id number] Envista Intraocular Lens Implanted:Qty: 1 on 03/24/2022 by Liang Marshall MD at OR [facility] Left: Eye BAUSCH & LOMB 07/13/2024 [id number] / [id number] / [id number] documented as of this encounter Visit Diagnoses Diagnosis 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)- Primary documented in this encounter Advance Directives Documents on File Type Date Recorded 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 No Care Teams Air Export Coordinator Relationship Specialty Start Date End Date Jocelyne Desai DO [address] [place] [address] [place] [address] PCP - General Internal Medicine 11/09/16 documented as of this encounter
--- OUTSIDE RECORDS SUMMARY | 2024-01-29 18:00 | External Medical Summary ---
Author Name Unknown Address Unknown Organization [id number]:[facility] [place] [address] [place] [address] Laboratory Report Ordering Provider Test Date Status MONTYPIERRE 11/01/2023 11:40:45 Final Observation Date Value Abnormality Reference (Units ) Status Folic Acid 11/01/2023 11:40:45 13.1 >4.5 (ng/ mL) Final Performing Location [facility] - [address] [place] [address]
--- OUTSIDE RECORDS SUMMARY | 2024-01-29 18:00 | External Medical Summary ---
Author Name Unknown Address Unknown Organization K01:[facility]ATORY [facility] - [address] [place] [address] Laboratory Report Ordering Provider Test Date Status MONTYPIERRE 11/01/2023 11:40:45 Final Observation Date Value Abnormality Reference (Units ) Status Ferritin 11/01/2023 11:40:45 121 30-400 (ng /mL) Final Performing Location [facility] - [address] [place] [address]
--- OUTSIDE RECORDS SUMMARY | 2024-01-29 18:00 | External Medical Summary ---
Author Name Unknown Address Unknown Organization [id number]:LABORATORY [facility] - [address] [place] [address] Laboratory Report Ordering Provider Test Date Status KUSHAL DOUGHERTY 11/01/2023 11:40:45 Final Deficient: <20 ng/mL
Ins ufficient: 20-29 ng/mL
Recommended/Optimum:30-50 ng/mL

Vitamin D intoxication is rare. If suspicious of Vitamin D toxicity, evaluation of serum Calcium and PTH is recommended. Observation Date Value Abnormality Reference (Units ) Status 25-OH Vitamin D total 11/01/2023 11:40:45 31 >19 (ng/mL) Final Performing Location LABORATORY [facility] - [address] [place] [address]
--- OUTSIDE RECORDS SUMMARY | 2024-01-29 18:00 | External Medical Summary ---
Author Name Unknown Address Unknown Organization [id number][place] [place] [address] [facility] [address] Laboratory Report Ordering Provider Test Date Status KUSHAL DOUGHERTY 11/01/2023 11:40:45 Final Observation Date Value Abnormality Reference (Units ) Status Color of Urine by Auto 11/01/2023 11:40:45 Colorless Colorless, Light Yellow, Yellow, Dark Yellow Final Clarity, Urine 11/01/2023 11:40:45 Clear Clear Final Glucose [Mass/volume] in Urine by Automated test strip 11/01/2023 11:40:45 Negative Negative (mg/dL) Final Bilirubin.total [Presence] in Urine by Automated test strip 11/01/2023 11:40:45 Negative Negative Final Ketones [Mass/volume] in Urine by Automated test strip 11/01/2023 11:40:45 Negative Negative (mg/dL) Final Specific gravity, Urine 11/01/2023 11:40:45 1.010 1.003-1.030 Final Hemoglobin [Presence] in Urine by Automated test strip 11/01/2023 11:40:45 Negative Negative Final pH, Urine 11/01/2023 11:40:45 5.5 5.0-7.5 (Units) Final Protein [Mass/volume] in Urine by Automated test strip 11/01/2023 11:40:45 Trace Abnormal Negative (mg/dL) Final Urobilinogen [Mass/volume] in Urine by Automated test strip 11/01/2023 11:40:45 Normal Normal (mg/dL) Final Nitrite [Presence] in Urine by Automated test strip 11/01/2023 11:40:45 Negative Negative Final Leukocyte esterase [Presence] in Urine by Automated test strip 11/01/2023 11:40:45 Negative Negative Final RBC, Urine 11/01/2023 11:40:45 0-2 0-2 (/HPF) Final WBC, Urine 11/01/2023 11:40:45 0-2 0-2 (/HPF) Final Bacteria [#/area] in Urine sediment by Microscopy high power field 11/01/2023 11:40:45 0-25 0-25 (/HPF) Final Performing Location [facility] [place] [facility] [address] [facility] [address]
--- OUTSIDE RECORDS SUMMARY | 2024-01-29 18:00 | External Medical Summary ---
Author Name Unknown Address Unknown Organization [id number]:LABORATORY [facility] [place] - [address] [place] [address] Laboratory Report Ordering Provider Test Date Status LADONNAFATIMA 11/01/2023 11:40:45 Final Normal: <30 mg/g creatinine< br/>High: 30-300 mg/g creatinine
Very High: >300 mg/g creatinine
Nephrotic: >2200 mg/g creatinine Observation Date Value Abnormality Reference (Units ) Status Albumin, Urine 11/01/2023 11:40:45 6.00 (mg/dL) Final Creatinine, Urine 11/01/2023 11:40:45 32 (mg/dL) Final Albumin/Creatinine [Mass Ratio] in Urine 11/01/2023 11:40:45 188 Above high normal <30 (mg/g Creat) Final Performing Location LABORATORY [facility] - [address] [place] [address]
--- OUTSIDE RECORDS SUMMARY | 2024-01-29 18:00 | External Medical Summary ---
Author Name Unknown Address Unknown Organization K01:LABORATORY [facility] [place] - [address] [place] [address] Laboratory Report Ordering Provider Test Date Status MONTYPIERRE 11/01/2023 11:40:45 Final Observation Date Value Abnormality Reference (Units ) Status Vitamin B12 11/01/2023 11:40:45 175 596-4445 (pg/mL) Final Performing Location [facility] - [address] [place] [address]
--- OUTSIDE RECORDS SUMMARY | 2024-01-29 18:00 | External Medical Summary ---
Author Name Unknown Address Unknown Organization K01:[facility] [place] [address] [place] [address] Laboratory Report Ordering Provider Test Date Status KUSHAL DOUGHERTY 11/01/2023 11:40:45 Final Normal: <150 mg/ g creatinine
High: 150-500 mg/g creatinine
Very High: >500 mg/g creatinine
Nephrotic: >3000 mg/g creatinine Observation Date Value Abnormality Reference (Units ) Status Protein/Creatinine [Ratio] in Urine 11/01/2023 11:40:45 469 Above high normal <150 (mg/g ) Final Protein, Urine 11/01/2023 11:40:45 15 (mg/dL) Final Creatinine, Urine 11/01/2023 11:40:45 32 (mg/dL) Final Performing Location LAB[facility]ORY [facility] [place] [address] [place] [address]
--- OUTSIDE RECORDS SUMMARY | 2024-01-29 18:00 | External Medical Summary | Summary of Care ---
Author Name Unknown Organization [facility] Address [address] [facility] [place] [address] Phone [phone] Care Team Providers Care Head Golf Professional Name Role Phone Jocelyne Desai DO Primary Care Provider [phone] Encounter Details Date Type Department Care Team (Late st Contact Info) Description 10/27/2023 Result Scan Unspecified Department Jocelyne Desai DO [address] [place] [address] [place] [address] <No scans attached> Allergies No known active allergiesdocumented as of this encounter (statuses as of 10/31/2023) Medications Medication Sig Dispensed Refills Start Date [...] the evening. 90 Tablet 2 07/25/2023 Active Additional Information Patient not taking.Reported on 10/26/2023 Atorvastatin Calcium 40 MG Oral Tablet (Lipitor) [...] as of this encounter (statuses as of 10/31/2023) Active Problems Patient Care Coordination No te Formatting of this note migh t be different from the original. Good connectivity [facility] for wound care [phone] Televideo if needed. Problem Noted Date Diagnosed [...] ICD-10 update of inactive term PLATT RESEARCH OTHER*[id number] 02/20/2007 ADVANCE DIRECTIVE INFORMATION 01/19/2005 Overview: Yes, Patient instructed to provide copy of advance directive for provider to review and to be scanned into Electronic Medical Record No, Advance Directive brochure given to patient at prior appointment. SPINAL STENOSIS-LUMBAR 09/23/2002 Vitamin D deficiency Cervical spinal stenosis documented as of this encounter (statuses as of 10/31/2023) Resolved Problems Problem Noted Date Diagnosed Date [...] 11/17/19 23 LUMBAGO 12/24/2002 05/09/2007 LOC PRIM [id number] 12/24/200208/13 DEGENERATIVE SKIN DISORD 12/24/2002 VERTEBRAL FX [...] as of this encounter (statuses as of 10/31/2023) Immunizations Name Administration Dates Next Due COVID-19 [...] 11:10 AM EDT Office Visit Family Medicine [address] [place] [phone] Jocelyne Desai [address] [place] [address] 11/13/2023 6:30 AM EDT [facility] Centralized Clinical Pharmacy Services, [address] [place] [address] [facility], [address] [place] [address] 11/20/2023 2:00 PM EDT Office Visit Nephrology, [facility] [address] [place] [address] Jennifer Agustin MD [address] [place] [address] 01/19/2024 9:00 AM EST Office Visit Gastroenterology [address] [place] [address] Moon Avila CRNP [address] [place] [address] 02/20/2024 12:30 PM EST Nurse Only Ancillary [address] [place] [address] [place], Nurse Annual [address] [place] [address] 03/08/2024 2:30 PM EST Office Visit Family Medicine [address] [place] [phone] Jocelyne Desai, [address] [place] [address] Scheduled Procedures Name Priority Associated Diagnoses Date/Ti [...] Additional history exists CKD PHOS USE SMARTSET 28234 08/22/202408/13, 07/18/2023, 07/03/2023, Additional history exists CKD HGB USE SMARTSET 93450 10/19/202410/19, 10/02/2023, 08/23/2023, Additional history exists DTap/Tdap Vaccines (3 - [...] this encounter Medical Devices Implanted Type Area Crop Research Scientist Device Identifier Shelf Expiration Date Model / Serial / Lot Shaft Fibula 6cm [id number] - [id number] Implanted:Qty: 1 on 09/05/2008 at [place] [facility] Tissue - Human N/A: Spine Cervical MUSCULOSKELETAL TRANSPLANT FND 04/20/2010 [id number] / [id number] 0P / Stent Eso Gw 22x70 [id number] - [id number] Implanted:Qty: 1 on 01/21/2008 at OR [facility] N/A: Esophagus [employer]US INC 04/12/2009 [id number] / / [id number] Depuy Uniplate 32 Implanted:Qty: 1 on 09/05/2008 at OR [facility] N/A: Spine Cervical TAMMY [employer] TAMMY DEPUY [id number] / / Depuy Uniplate Screw 14mm Implanted:Qty: 2 on 09/05/2008 at OR [facility] N/A: Spine Cervical TAMMY & TAMMY DEPUY [id number] / / Depuy Lordotic Bengal Cage Implanted:Qty: 1 on 05/07/2010 at OR [facility] N/A: Neck [id number] / [id number] / Plate Zach 3 Level Ti 54mm - [id number] Implanted:Qty: 1 on 05/07/2010 at OR [facility] N/A: Neck JNJ : DEPUY SPINE [id number] 54 / / Screw Zach Const St Ti 14mm - [id number] Implanted:Qty: 4 on 05/07/2010 at OR [facility] N/A: Neck JNJ : DEPUY SPINE [id number] 14 / / Screw 3.5x14 Mntr Fa [id number] - [id number] Implanted:Qty: 8 on 05/07/2010 at OR [facility] N/A: Spine Cervical JNJ : ETHICON CARDIOVATIONS [id number] / / Jarrell [id number] - [id number] Implanted:Qty: 1 on 05/07/2010 at OR [facility] N/A: Spine Cervical JNJ : ETHICON CARDIOVATIONS [id number] / / Screw Inner Mntr [id number] - [id number] Implanted:Qty: 8 on 05/07/2010 at OR [facility] N/A: Spine Cervical JNJ : ETHICON CARDIOVATIONS [id number] / / Envista Intraocular Lens Implanted:Qty: 1 on 03/10/2022 by Liang Marshall MD at OR [facility] Right: Eye BAUSCH & LOMB 08/13/2023 [id number] / [id number] / [id number] Envista Intraocular Lens Implanted:Qty: 1 on 03/24/2022 by Liang Marshall MD at OR [facility] Left: Eye BAUSCH & LOMB 07/13/2024 [id number] / [id number] / [id number] documented as of this encounter Procedures Procedure Name Priority Date/Time Associated Diagnosis Comments OUTSIDE LAB RESULTS 10/27/2023 documented in this encounter Results * OUTSIDE LAB RESULTS (10/27/2023) 10/27/2023 Jocelyne Desai DO LABORATORY documented in this encounter Advance Directives Documents on File Type Date Recorded 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 No Care Teams Head Golf Professional Relationship Specialty Start Date End Date Jocelyne Desai DO [address] [place] [address] [place] [phone] PCP - General Internal Medicine 11/09/16 documented as of this encounter
--- OUTSIDE RECORDS SUMMARY | 2024-01-29 18:00 | External Medical Summary ---
Author Name Unknown Address Unknown Organization K01:[facility] [place] [address] [facility] [address] [facility] [address] Laboratory Report Ordering Provider Test Date Status KUSHAL DOUGHERTY 11/01/2023 11:40:45 Final Observation Date Value Abnormality Reference (Units ) Status WBC, Total 11/01/2023 11:40:45 5.32 4.00-10.80 (K/uL) Final RBC 11/01/2023 11:40:45 2.98 4.50-5.25 (M/uL) Final Hemoglobin 11/01/2023 11:40:45 8.7 Below low normal 14.0-16.8 (g/dL) Final HCT 11/01/2023 11:40:45 27.9 Below low normal 40.0-48.4 (%) Final MCV 11/01/2023 11:40:45 93.6 82.0-99.5 (fL) Final MCH 11/01/2023 11:40:45 29.2 27.0-34.0 (pg) Final MCHC 11/01/2023 11:40:45 31.2 32.0-36.0 (g/dL) Final RDW 11/01/2023 11:40:45 19.0 11.5-15.5 (%) Final Platelets 11/01/2023 11:40:45 178 140-400 (K/uL) Final MPV 11/01/2023 11:40:45 11.3 6.6-11.1 (fL) Final Nucleated erythrocytes/100 leukocytes [Ratio] in Blood by Automated count 11/01/2023 11:40:45 0 <=0 (/100 WBCs) Final Performing Location LAB[facility]ORY [facility] [place] [address] [place] [address]
--- OUTSIDE RECORDS SUMMARY | 2024-01-29 18:00 | External Medical Summary ---
Author Name Unknown Address Unknown Organization K01:LABORATORY [facility] - [address] [place] [address] Laboratory Report Ordering Provider Test Date Status LADONNAFATIMA 11/01/2023 11:40:45 Final Observation Date Value Abnormality Reference (Units ) Status Iron 11/01/2023 11:40:45 25 Below low normal 45-176 (ug/dL) Final Iron-binding capacity 11/01/2023 11:40:45 300 250-425 (ug/dL) Final Transferrin Sat % 11/01/2023 11:40:45 8 Below low normal 15-55 (%) Final Performing Location [facility] - [address] [place] [address]
--- OUTSIDE RECORDS SUMMARY | 2024-01-29 18:00 | External Medical Summary ---
Author Name Unknown Address Unknown Organization K01:LABORATORY [facility] - [address] [place] [address] Laboratory Report Ordering Provider Test Date Status KUSHAL DOUGHERTY 11/01/2023 11:40:45 Final Observation Date Value Abnormality Reference (Units ) Status Magnesium 11/01/2023 11:40:45 1.5 1.5-2.6 (m g/dL) Final Performing Location [facility] - [address] [place] [address]
--- OUTSIDE RECORDS SUMMARY | 2024-01-29 18:00 | External Medical Summary | Summary of Care ---
Author Name Unknown Organization [facility] Address [address] [place] [address] Phone [phone] Care Team Providers Care Nursery Supervisor Name Role Phone Jocelyne Desai Primary Care Provider Reason for Visit * Reason Onset Date Comments Advice 10/26/2023 [facility] scales weigh t gain -- 9.2 lbs in 5 days Encounter Details Date Type Department Care Team (Latest Contact Info) Description 10/26/2023 Criminal Defense Lawyer Telephone Care Coordination and Integration [address] [place] [address] Marilou Gee, RN [address] [place] [id number] Advice ([facility] scales weight gain -- 9.2 lbs ... Allergies No known active allergiesdocumented as [...] [facility] for wound care [phone] Televideo if needed. Problem Noted Date Diagnosed [...] with podiatry,. Letter in chart from [facility] podiatry they were unable to [...] ICD-10 update of inactive term PLATT RESEARCH OTHER*[id number] 02/20/2007 ADVANCE DIRECTIVE INFORMATION 01/19/2005 Overview: Yes, [...] 11/17/19 23 LUMBAGO 12/24/2002 05/09/2007 LOC PRIM [id number] 12/24/200208/13 DEGENERATIVE SKIN DISORD 12/24/2002 VERTEBRAL FX [...] Telephone Encounter - Jennifer Agustin MD - 10/31/2023 3:52 PM EDT Noted * Telephone Encounter - Rachel Grier LPN - 10/27/2023 11:55 AM EDT Return call to patient Today's weight 211.0 Denies worsening dyspnea or edema Denies chest congestion, wheezing or rattling Will continue same diuretic dose at this time Will continue to follow weight transmissions Confirmed that he has on-call phone number for weekend if needs and advice or any concerns with howfeeling Pt verbalizes understanding * Telephone Encounter - Jocelyne Desai DO - 10/27/2023 11:49 AM EDT He had been eating better the last time I saw him. If he shows no worsening edema/rales/etc, I would continue the same dosing for now. * Telephone Encounter - Marilou Gee RN - 10/26/2023 1:16 PM EDT Images from the original note were not included. SITUATION: [facility] scales trigger alert BACKGROUND: [facility] 10/19-10/23 for GIB now s/p 2 units PRBC transfusion, torsemide/potassium changed from BID to M-W-F Recent weights from [facility] ASSESSMENT: Patient is able to speak in complete sentences without any audible gasping or shortness of breath States he was short of breath yesterday because he was very busy and had a lot going on -- "I'm notdoing much today, so my breathing is okay." He has had a BM since discharge and denies blood States he feels he is voiding an amount normal for him. Denies any swelling He is rather perturbed that "no one seemed to care when I lost 50 lbs in a month and a half, but ifI gain one pound everyone gets upset!" No discharge weight listed on [facility] dc summary Most recent office visit weight is 09/27/23 205 lbs RECOMMENDATION: Education provided as to reason for scales Advised patient I do need to report this to his PCP and agent broker Probably at least partly caused by getting tranfusions plus change in diuretic regimen 09/27/23 PCP office visit noted the improved appetite with 10 lbs weight gain at that time and no appreciable increase in edema I do not see if any fluid restrictions for this patient Reminded patient to avoid adding salt or eating salty foods Red Flags reviewed with patient Await any further instructions from PCP or nephrology Continue to monitor [facility] scales Copied this message to Nimesh Grier LPN CCM and Marilou Barfield RN CCM as I am out Monday10/27/23 Marilou Gee RN Care Coordination and Integration [address] [facility] [address] documented in this encounter Plan of Treatment Upcoming Encounters Date Type Department Care Team (Late st Contact Info) Description 11/01/2023 11:10 AM EDT Office Visit Family Medicine [address] [place] [phone] [place] [address] 11/13/2023 6:30 AM EDT Antico[facility], Ilya Lafleur [address] [place] [address] [place] [address] [place] [address] 11/20/2023 2:00 PM EDT [facility] [address] [place] [address] Jennifer Agustin MD [address] [place] [address] 01/19/2024 9:00 AM EST Office Visit Gastroenterology [address] [place] [address] Moon Avila CRNP [address] [place] [address] 02/20/2024 12:30 PM EST Nurse Only Ancillary [address] [place] [address] [place], Nurse Annual [facility]ness [address] [place] [address] [place] [address] 03/08/2024 2:30 PM EST Office Visit Family Medicine [address] [place] [phone] Jocelyne Desai, [address] [place] [address] Scheduled Procedures Name Priority Associated Diagnoses Date/Ti [...] Additional history exists CKD PHOS USE SMARTSET 39515 08/22/202408/13, 07/18/2023, 07/03/2023, Additional history exists CKD HGB USE SMARTSET 84100 10/19/202410/19, 10/02/2023, 08/23/2023, Additional history exists Depression [...] this encounter Medical Devices Implanted Type Area Administrative Job Titles Device Identifier Shelf Expiration Date Model / Serial / Lot Shaft Fibula 6cm [id number] - [id number] [place]ed:Q[place] 1 [place] [facility] [place] Human N/A: Spine Cervical MUSCULOSKELETAL TRANSPLANT FND 04/20/2010 [id number] / [id number] / Stent Eso Gw 22x70 [id number] - [id number] Implanted:Qty: 1 on 01/21/2008 [place] [facility] [place] N/A: Esophagus [employer] 04/12/2009 [id number] / / [id number] Depuy Uniplate 32 Implanted:Qty: 1 on 09/05/2008 [...] Plate Zach 3 Level Ti 54mm - [id number] Implanted:Qty: 1 on 05/07/2010 [place] [facility] [place]/A: Neck JNJ : DEPUY SPINE [id number] / / Screw Zach Const St Ti 14mm - [id number] Implanted:Qty: 4 on 05/07/2010 [place] [facility] [place]/A: Neck JNJ : DEPUY SPINE [id number] / / Screw 3.5x14 Mntr Fa [id number] - [id number] Implanted:Qty: 8 on 05/07/2010 [place] [facility] [place]/A: Spine Cervical JNJ : ETH[employer] [id number] / / Jarrell [id number] - [id number] Implanted:Qty: 1 on 05/07/2010 [place] [facility] [place]/A: Spine Cervical JNJ : ETH[employer]ON [employer] [id number] / / Screw Inner Mntr [id number] - [id number] Implanted:Qty: 8 on 05/07/2010 [place] [facility] [place] N/A: Spine Cervical JNJ : ETH[employer]ON [employer]ATIONS [id number] / / Envista Intraocular Lens Implanted:Qty: 1 on 03/10/2022 by Liang Marshall MD at OR [facility] Right: Eye BAUSCH & LOMB 08/13/2023 [id number] / [id number] / [id number] Envista Intraocular Lens Implanted:Qty: 1 on 03/24/2022 by Liang Marshall MD at OR [facility] Left: Eye BAUSCH & LOMB 07/13/2024 [id number] / [id number] / [id number] documented as of this encounter Advance Directives Documents on File Type Date Recorded 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 No Care Teams Nursery Supervisor Relationship Specialty Start Date End Date Jocelyne Desai DO [address] [place] [address] [place] [address] PCP - General Internal Medicine 11/09/16 documented as of this encounter
--- OUTSIDE RECORDS SUMMARY | 2024-01-29 18:00 | External Medical Summary ---
Author Name Unknown Address Unknown Organization [id number]:LABORATORY [facility] [place] - [facility] [address] [facility] [address] Laboratory Report Ordering Provider Test Date Status KUSHAL DOUGHERTY 11/01/2023 11:40:45 Final Observation Date Value Abnormality Reference (Units ) Status BUN 11/01/2023 11:40:45 72 Above high normal 6-20 (mg/dL) Final Creatinine 11/01/2023 11:40:45 4.3 Above high normal 0.6-1.2 (mg/dL) Final Glomerular filtration rate/1.73 sq M.predicted [Volume Rate/Area] in Serum, Plasma or Blood by Creatinine-based formula (CKD-EPI) 11/01/2023 11:40:45 14 Below low normal >=60 (mL/min) Final eGFR is calculated based on the CKD-EPI 2020 equation. Sodium 11/01/2023 11:40:45 139 135-146 (m mol/L) Final Potassium 11/01/2023 11:40:45 4.1 3.5-5.1 (m mol/L) Final Cl 11/01/2023 11:40:45 109 Above high normal 98 -107 (mmol/L) Final CO2 11/01/2023 11:40:45 16 Below low normal 22- 32 (mmol/L) Final Anion gap 11/01/2023 11:40:45 14 7-15 (mmol /L) Final Glucose 11/01/2023 11:40:45 104 70-120 (mg /dL) Final Calcium 11/01/2023 11:40:45 8.1 Below low normal 8.4 -10.2 (mg/dL) Final Performing Location LABORATORY [facility] [place] - [address] [place] [address]
--- OUTSIDE RECORDS SUMMARY | 2024-01-29 18:00 | External Medical Summary ---
Author Name Unknown Address Unknown Organization K01:[facility] [place] [address] [facility] [address] Laboratory Report Ordering Provider Test Date Status LADONNAKUSHAL 11/01/2023 11:40:45 Final Observation Date Value Abnormality Reference (Units ) Status SYNC LEUKOCYTES IN BLOOD BY AUTOMATED COUNT 11/01/2023 11:40:45 5.32 4.00-10.80 (K/uL) Final Segs 11/01/2023 11:40:45 75.2 Above high normal 40.0-75.0 (%) Final Lymphs % 11/01/2023 11:40:45 15.0 Below low normal 18.0-42.0 (%) Final Monos 11/01/2023 11:40:45 5.8 1.0-11.0 (%) Final Eosinophils 11/01/2023 11:40:45 3.6 0.0-6.0 (%) Final Basos 11/01/2023 11:40:45 0.2 0.0-2.0 (%) Final Immature Granulocyte, Percent 11/01/2023 11:40:45 0.2 0.0-2.0 (%) Final Absolute Segs 11/01/2023 11:40:45 4.00 1.80-7.70 (K/uL) Final Lymphs, absolute 11/01/2023 11:40:45 0.80 Below low normal 1.00-4.80 (K/ul) Final Monos, Abs 11/01/2023 11:40:45 0.31 0.00-1.10 (K/uL) Final Eos, Abs 11/01/2023 11:40:45 0.19 0.00-0.70 (K/uL) Final Basos, Abs 11/01/2023 11:40:45 0.01 0.00-0.20 (K/uL) Final Immature Granulocytes, Number 11/01/2023 11:40:45 0.01 0.00-0.20 (K/uL) Final Performing Location [facility] [place] [facility] [place] [address]
--- OUTSIDE RECORDS SUMMARY | 2024-01-29 18:00 | External Medical Summary ---
Author Name Unknown Address Unknown Organization K01:[facility] - [address] [place] [address] Laboratory Report Ordering Provider Test Date Status SILVIAARMAS 11/01/2023 11:40:45 Final Observation Date Value Abnormality Reference (Units ) Status Albumin 11/01/2023 11:40:45 3.5 Below low normal 3.8 -5.0 (g/dL) Final Performing Location [facility]ATORY [facility] - [address] [place] [address]
--- OUTSIDE RECORDS SUMMARY | 2024-01-29 18:00 | External Medical Summary ---
Author Name Unknown Address Unknown Organization K01:[facility] - [address] [place] [address] Laboratory Report Ordering Provider Test Date Status KUSHAL DOUGHERTY 11/01/2023 11:40:45 Final Observation Date Value Abnormality Reference (Units ) Status Phosphate 11/01/2023 11:40:45 5.7 Above high normal 2. 5-4.8 (mg/dL) Final Performing Location [facility] - [address] [place] [address]
--- OUTSIDE RECORDS SUMMARY | 2024-01-29 18:00 | External Medical Summary ---
Author Name Unknown Address Unknown Organization K01:[facility]ORY [facility] [place] - [address] [place] [address] Laboratory Report Ordering Provider Test Date Status PIERRE MILLAN 11/01/2023 11:40:45 Final Observation Date Value Abnormality Reference (Units ) Status Retic, % (auto) 11/01/2023 11:40:45 1.20 0.80-1.90 (%) Final Reticulocytes, Absolute 11/01/2023 11:40:45 35.8 31.3-100.1 (K/uL) Final Reticulocyte fraction, immature 11/01/2023 11:40:45 16.9 2.5-20.6 (%) Final Reticulocyte HGB 11/01/2023 11:40:45 27.3 Below low normal 29.7-37.4 (pg) Final Performing Location LABORATORY [facility] [place] - [address] [place] [address]
--- OUTSIDE RECORDS SUMMARY | 2024-01-29 18:00 | External Medical Summary ---
Author Name Unknown Address Unknown Organization K01:[facility] [place] [address] [place] [address] Laboratory Report Ordering Provider Test Date Status KUSHAL DOUGHERTY 11/01/2023 11:40:45 Final Observation Date Value Abnormality Reference (Units ) Status Parathyrin.intact [Mass/volume] in Serum or Plasma 11/01/2023 11:40:45 361 Above high normal 15-65 (pg/mL) Final Performing Location [facility] [place] [address] [place] [address]
--- OUTSIDE RECORDS SUMMARY | 2024-01-29 18:00 | External Medical Summary ---
Author Name Unknown Address Unknown Organization K01:[facility]ORY [facility] - [address] [place] [address] Laboratory Report Ordering Provider Test Date Status PIERRE MILLAN 11/01/2023 11:40:45 Final Observation Date Value Abnormality Reference (Units ) Status LDH 11/01/2023 11:40:45 181 <=250 (U/L ) Final Performing Location [facility]ATORY [facility] - [address] [place] [address]
--- OUTSIDE RECORDS SUMMARY | 2024-01-29 18:01 | External Medical Summary | Summary of Care ---
Author Name Unknown Organization [facility] Address [address] [facility] [place] [address] Phone [phone] Care Team Providers Care Clam Shucker Name Role Phone Jocelyne Desai DO Primary Care Provider [phone] Encounter Details Date Type Department Care Team (Late st Contact Info) Description 10/25/2023 Result Scan Unspecified Department <No scans attached> Allergies No known active allergiesdocumented as of this encounter (statuses as of 10/30/2023) Medications Medication Sig Dispensed Refills Start Date [...] as of this encounter (statuses as of 10/30/2023) Active Problems Patient Care Coordination No te Formatting of this note migh t be different from the original. Good connectivity [facility] for wound care [phone] Televideo if needed. Problem Noted Date Diagnosed [...] up with podiatry,. 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 SPINAL STENOSIS-LUMBAR 09/23/2002 Vitamin D deficiency Cervical spinal stenosis documented as of this encounter (statuses as of 10/30/2023) Resolved Problems Problem Noted Date Diagnosed Date [...] 11/17/19 23 LUMBAGO 12/24/2002 05/09/2007 LOC PRIM [id number] 12/24/200208/13 DEGENERATIVE SKIN DISORD 12/24/2002 VERTEBRAL FX [...] as of this encounter (statuses as of 10/30/2023) Immunizations Name Administration Dates Next Due COVID-19 [...] No 02/16/2023 Does the household have a university of [...] 11:10 AM EDT Office Visit Family Medicine [address] [place] [address] Jocelyne Desai [address] [place] [address] 11/13/2023 6:30 AM EDT [facility] Clinical Pharmacy Services, Ilya Lafleur [address] [place] [address] [place] [address] [place] [address] 11/20/2023 2:00 PM EDT Office Visit Nephrology, Cely Zaldivar [address] [place] [address] Jennifer Agustin MD [address] [place] [address] 01/19/2024 9:00 AM EST Office Visit Gastroenterology [address] [place] [address] Moon Avila CRNP [address] [place] [address] 02/20/2024 12:30 PM EST Nurse Only Ancillary [address] [place] [address] [place], Nurse [address] [place] [address] 03/08/2024 2:30 PM EST Office Visit Family Medicine [address] [place] [phone] [address] [place] [address] Scheduled Procedures Name Priority Associated Diagnoses Date/Ti [...] Additional history exists CKD PHOS USE SMARTSET 87494 08/22/202408/13, 07/18/2023, 07/03/2023, Additional history exists CKD HGB USE SMARTSET 59143 10/19/202410/19, 10/02/2023, 08/23/2023, Additional history exists DTap/Tdap [...] this encounter Medical Devices Implanted Type Area Finish Inspector Device Identifier Shelf Expiration Date Model / Serial / Lot Shaft Fibula 6cm [id number] - [id number] Implanted:Qty: 1 on 09/05/2008 [place] [facility] [place] - Human N/A: Spine Cervical MUSCULOSKELETAL TRANSPLANT FND 04/20/2010 [id number] / [id number] / Stent Eso Gw 22x70 [id number] - [id number] Implanted:Qty: 1 on 01/21/2008 [place] [facility] [place] N/A: Esophagus [employer] 04/12/2009 [id number] / / [id number] Depuy Uniplate 32 Implanted:Qty: 1 on 09/05/2008 [...] Plate Zach 3 Level Ti 54mm - [id number] Implanted:Qty: 1 on 05/07/2010 [place] [facility] [place] N/A: Neck JNJ : DEPUY SPINE [id number] / / Screw Zach Const St Ti 14mm - [id number] Implanted:Qty: 4 on 05/07/2010 at [place] [facility] [place] N/A: Neck JNJ : DEPUY SPINE [id number] 14 / / Screw 3.5x14 Mntr Fa [id number] - [id number] Implanted:Qty: 8 on 05/07/2010 [place] [facility] [place] N/A: Spine Cervical JNJ : ETH[employer]ON [employer] [id number] / / Jarrell [id number] - [id number] Implanted:Qty: 1 on 05/07/2010 at [place] [facility] [place] N/A: Spine Cervical JNJ : ETH[employer]ON CARDI[employer]ATIONS [id number] / / Screw Inner Mntr [id number] - [id number] Implanted:Qty: 8 on 05/07/2010 at [place] [facility] [place] N/A: Spine Cervical JNJ : ETH[employer]ON C[employer] [id number] / / Envista Intraocular Lens Implanted:Qty: 1 on 03/10/2022 by Liang Marshall MD at OR [facility] Right: Eye BAUSCH & LOMB 08/13/2023 [id number] / [id number] / [id number] Envista Intraocular Lens Implanted:Qty: 1 on 03/24/2022 by Liang Marshall MD at OR [facility] Left: Eye BAUSCH & LOMB 07/13/2024 [id number] / [id number] / [id number] documented as of this encounter Procedures Procedure Name Priority Date/Time Associated Diagnosis Comments OUTSIDE LAB RESULTS 10/25/2023 documented in this encounter Results * OUTSIDE LAB RESULTS (10/25/2023) 10/25/2023 No Physician Data Unknown LABORATORY documented in this encounter Advance Directives Documents on File Type Date Recorded 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 No Care Teams Clam Shucker Relationship Specialty Start Date End Date Jocelyne Desai DO [address] [place] [address] [place] [phone] PCP - General Internal Medicine 11/09/16 documented as of this encounter
--- OUTSIDE RECORDS SUMMARY | 2024-01-29 18:01 | External Medical Summary | Summary of Care ---
Author Name Unknown Organization [facility] Address [address] [place] [address] Phone [phone] Care Team Providers Care Behavior Therapist Name Role Phone Jocelyne Desai Primary Care Provider Reason for Visit * Reason Onset Date Comments Advice 10/26/2023 [facility] weigh t gain -- 9.2 lbs in 5 days Encounter Details Date Type Department Care Team (Latest Contact Info) Description 10/26/2023 Vehicle Return Associate Telephone Care Coordination and Integration [address] [place] [address] Marilou Gee, RN [address] [place] [id number] Advice ([facility] weight gain -- 9.2 lbs ... Allergies No known active allergiesdocumented as of this encounter (statuses as of 10/27/2023) Medications Medication Sig Dispensed Refills Start Date [...] as of this encounter (statuses as of 10/27/2023) Active Problems Patient Care Coordination No te Formatting of this note migh t be different from the original. Good connectivity [facility] for wound care [phone] Televideo if needed. Problem Noted Date Diagnosed [...] ICD-10 update of inactive term PLATT RESEARCH OTHER*[id number] 02/20/2007 ADVANCE DIRECTIVE INFORMATION 01/19/2005 Overview: Yes, Patient instructed to provide copy of advance directive for provider to review and to be scanned into Electronic Medical Record No, Advance Directive brochure given to patient at prior appointment. SPINAL STENOSIS-LUMBAR 09/23/2002 Vitamin D deficiency Cervical spinal stenosis documented as of this encounter (statuses as of 10/27/2023) Resolved Problems Problem Noted Date Diagnosed Date [...] 11/17/19 23 LUMBAGO 12/24/2002 05/09/2007 LOC PRIM [id number]-W-[id number] 12/24/200208/13 DEGENERATIVE SKIN DISORD 12/24/2002 VERTEBRAL FX [...] as of this encounter (statuses as of 10/27/2023) Immunizations Name Administration Dates Next Due COVID-19 [...] Miscellaneous Notes * Telephone Encounter - Rachel Grier LPN [...] the original note were not included. SITUATION: [facility] scales trigger alert BACKGROUND: [facility] 10/19-10/23 for GIB now s/p 2 units PRBC transfusion, torsemide/potassium changed from BID to M-W-F Recent weights from [facility] ASSESSMENT: Patient is able to speak in [...] gets upset!" No discharge weight listed on [facility] dc summary Most recent office visit weight is 09/27/23 205 lbs RECOMMENDATION: Education provided as to reason for scales Advised patient I do need to report this to his PCP and project program manager Probably at least partly caused by getting [...] RN Care Coordination and Integration [address] [facility] [place] [address] documented in this encounter Plan of Treatment Upcoming Encounters Date Type Department Care Team (Late st Contact Info) Description 10/30/2023 6:30 AM EDT Anticoagulation Centralized Clinical Pharmacy Services, Ilya Lafleur [address] [place] [address] [place] [address] [facility], [address] [place] [address] 11/01/2023 11:10 AM EDT Office Visit Family Medicine [address] [place] [phone] [place] [address] 11/20/2023 2:00 PM EDT Office Visit Nephrology, [facility] [address] [facility] [address] [place] [address] Jennifer Agustin MD [address] [facility] [place] [address] 01/19/2024 9:00 AM EST Office Visit Gastroenterology [address] [place] [address] Moon Avila CRNP [address] [place] [address] 02/20/2024 12:30 PM EST Nurse Only Ancillary [address] [place] [address] [place], Nurse [address] [place] [address] 03/08/2024 2:30 PM EST Office Visit Family Medicine [address] [place] [phone] Jocelyne Desai[address] [place] [address] Scheduled Procedures Name Priority Associated Diagnoses Date/Ti [...] Additional history exists CKD PHOS USE SMARTSET 34621 08/22/2024 07/1 , 07/18/2023, 07/03/2023, Additional history exists CKD HGB USE SMARTSET 64646 10/19/202410/19, 10/02/2023, 08/23/2023, Additional history exists DTap/Tdap [...] this encounter Medical Devices Implanted Type Area Visual Effects Artist Device Identifier Shelf Expiration Date Model / Serial / Lot Shaft Fibula 6cm [id number] - [id number] Implanted:Qty: 1 on 09/05/2008 [place] [facility] [place] - Human N/A: Spine Cervical MUSCULOSKELETAL TRANSPLANT FND 04/20/2010 [id number] / [id number] 0P / Stent Eso Gw 22x70 [id number] - [id number] Implanted:Qty: 1 on 01/21/2008 at [place] [facility] N/A: Esophagus [employer] INC 04/12/2009 82079-580 / / [id number] Depuy Uniplate 32 Implanted:Qty: 1 on 09/05/2008 at [place] [facility] N/A: Spine Cervical TAMMY & TAMMY DEPUY 18908-14-302 / / Depuy Uniplate Screw 14mm Implanted:Qty: 2 on 09/05/2008 at [place] [facility] N/A: Spine Cervical TAMMY [employer] TAMMY DEPUY 1896-07-017 / / Depuy Lordotic Bengal Cage Implanted:Qty: 1 on 05/07/2010 at [place] [facility] N/A: Neck 1773-06-146 / 1773-06-146 / Plate Zach 3 Level Ti 54mm - [id number] Implanted:Qty: 1 on 05/07/2010 at [place] [facility] N/A: Neck JNJ : DEPUY SPINE [id number] / / Screw Zach Const St Ti 14mm - [id number] Implanted:Qty: 4 on 05/07/2010 at [place] [facility] N/A: Neck JNJ : DEPUY SPINE [id number] / / Screw 3.5x14 Mntr Fa [id number] - [id number] Implanted:Qty: 8 on 05/07/2010 at [place] [facility] N/A: Spine Cervical JNJ : ETHICON CARDIOVATIONS [id number] / / Jarrell [id number] - [id number] Implanted:Qty: 1 on 05/07/2010 at [place] [facility] N/A: Spine Cervical JNJ : ETHICON CARDIOVATIONS [id number] / / Screw Inner Mntr [id number] - [id number] Implanted:Qty: 8 on 05/07/2010 at [place] [facility] N/A: Spine Cervical JNJ : ETHICON CARDIOVATIONS [id number] / / Envista Intraocular Lens Implanted:Qty: 1 on 03/10/2022 by Liang Marshall MD at OR [facility] Right: Eye BAUSCH & LOMB 08/13/2023 [id number] / [id number] / [id number] Envista Intraocular Lens Implanted:Qty: 1 on 03/24/2022 by Liang Marshall MD at [facility] Left: Eye BAUSCH & LOMB 07/13/2024 [id number] / [id number] / [id number] documented as of this encounter Advance Directives Documents on File Type Date Recorded 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 No Care Teams Behavior Therapist Relationship Specialty Start Date End Date Jocelyne Desai DO [address] [place] [address] [place] [address] PCP - General Internal Medicine 11/09/16 documented as of this encounter
--- OUTSIDE RECORDS SUMMARY | 2024-01-29 18:01 | External Medical Summary | Summary of Care ---
Author Name Unknown Organization [facility] Address [address] [facility] [place] [address] Phone [phone] Care Team Providers Care Direct Support Worker Name Role Phone DesaiElissaJocelynejohn Briggs DO Primary Care Provider + [phone] Reason for Visit * Reason Comments Dosage Adjustment Via Phone (anticoag Cl inic) Encounter Details Date Type Department Care Team (Late st Contact Info) Description 10/30/2023 6:30 AM EDT Anticoagulation Centralized Clinical Pharmacy Services, Ilya Lafleur [address] [place] [address] [place] [address] [facility], [address] [place] [address] Chronic atrial fibrillation (HCC)* Allergies No known [...] [facility] for wound care [phone] Televideo if needed. Problem Noted Date Diagnosed [...] up with podiatry,. Letter [facility] podiatry they were unable [...] ICD-10 update of inactive term PLATT RESEARCH OTHER*[id number] 02/20/2007 ADVANCE DIRECTIVE INFORMATION 01/19/2005 Overview: Yes, [...] 11/17/19 23 LUMBAGO 12/24/2002 05/09/2007 LOC PRIM [id number]-[id number] 12/24/200208/13 DEGENERATIVE SKIN DISORD 12/24/2002 VERTEBRAL FX [...] as of this encounter Progress Notes * Margaret Bangura CPhT - 10/30/2023 10:05 AM EDT Contacts Contact Date/Time Type Contact Phone/Fax 10/30/2023 09:58 AM EDT Phone (Outgoing) Lg Cooley "Akshat" (Self) [phone] (H) Subjective Patient Findings Positives: Change in medications (Patient stared taking Doxycyline on 10/24, advised patient to contact clinic with and N/V/D lasting greated than 24 hours.) Negatives: Signs/symptoms of thrombosis, Signs/symptoms of bleeding, Change in health, Change in alcohol use, Change in activity, Upcoming invasive procedure, Missed doses, Extra doses, Change in diet/appetite, Bruising Advised patient to contact Anticoagulation Clinic if any unusual bruising or bleeding, recent illness, changes in medication, or questions/concerns. PT/INR results, Coumadin dose instructions, and next PT/INR date communicated as noted by Pharmacist: Yes MARGARET BNAGURA CPhT 10/30/2023, 10:05 AM * Estefania Palacios RPh - 10/30/2023 8:36 AM EDT Coumadin Clinic (region specific) Objective Current Warfarin Dose As of 10/30/2023 Warfarin maintenance plan: 3 mg (3 mg x 1) every Tue; 1.5 mg (3 mg x 0.5) all other days INR Result As of 10/30/2023 INR goal: 2.0-3.0 INR used for dosin.52 (10/27/2023) Assessment & Plan Warfarin Plan As of 10/30/2023 Full warfarin instructions: 10/29: 3 mg; Otherwise 3 mg every Tue; 1.5 mg all other days Next INR check: 11/10/2023 Repeat PT/INR in 2 week(s) Weekly dose: not changed Additional Dosing Information: Description [facility] Nurses -- Mondays and Fridays ; fax - [phone] ([facility]) Tech to contact patient with dose instructions as noted. Estefania Palacios RPh 10/30/2023, 8:37 AM documented in this encounter Plan of Treatment Upcoming Encounters Date Type Department Care Team (Brian Contact Info) Description 11/01/2023 11:10 AM EDT Office Visit Family Medicine [address] [place] [phone] Jocelyne Desai[address] [place] [address] 11/20/2023 2:00 PM EDT Office Visit Nephrology, [facility] [address] [facility] [place] [address] Jennifer Agustin MD [address] [facility] [place] [address] 01/19/2024 9:00 AM EST Office Visit Gastroenterology [address] [place] [address] Moon [facility]ila CRNP [address] [facility] [address] 02/20/2024 12:30 PM EST Nurse Only Ancillary [address] [place] [address] [place], Nurse [address] [place] [address] 03/08/2024 2:30 PM EST Office Visit Family Medicine [address] [place] [phone] Jocelyne Desai[address] [place] [address] Scheduled Procedures Name Priority Associated Diagnoses Date/Ti [...] Additional history exists CKD PHOS USE SMARTSET 72340 08/22/202408/13, 07/18/2023, 07/03/2023, Additional history exists CKD HGB USE SMARTSET 77790 10/19/202410/19, 10/02/2023, 08/23/2023, Additional history exists DTap/Tdap [...] this encounter Medical Devices Implanted Type Area Local Company Tanker Driver Device Identifier Shelf Expiration Date Model / Serial / Lot Shaft Fibula 6cm [id number] - [id number] Implanted:Qty: 1 [place] 09/05/[place] [facility] [place] - Human N/A: Spine Cervical MUSCULOSKELETAL TRANSPLANT FND 04/20/2010 243571 / [id number] 0P / Stent Eso Gw 22x70 04421-791 - [id number] Implanted:Qty: 1 on 01/21/2008 [place] [facility] N/A: Esophagus [employer]US INC 04/12/2009 57429-395 / / [id number] Depuy Uniplate 32 Implanted:Qty: 1 on 09/05/2008 [...] Plate Zach 3 Level Ti 54mm - [id number] Implanted:Qty: 1 on 05/07/2010 [place] [facility] [place]/A: Neck JNJ : DEPUY SPINE [id number] 54 / / Screw Zach Const St Ti 14mm - [id number] Implanted:Qty: 4 on 05/07/2010 [place] [facility] [place]/A: Neck JNJ : DEPUY SPINE [id number] 14 / / Screw 3.5x14 Mntr Fa [id number] - [id number] Implanted:Qty: 8 on 05/07/2010 [place] [facility] [place]/A: Spine Cervical JNJ : ETHICON CARDIOVATIONS [id number] / / Jarrell [id number] - [id number] Implanted:Qty: 1 on 05/07/2010 [place] [facility] [place]/A: Spine Cervical JNJ : ETHICON CARDIOVATIONS [id number] / / Screw Inner Mntr [id number] - [id number] Implanted:Qty: 8 on 05/07/2010 [place] [facility] [place]/A: Spine Cervical JNJ : ETHICON CARDIOVATIONS [id number] / / Envista Intraocular Lens Implanted:Qty: 1 on 03/10/2022 by Liang Marshall MD at [place] [facility] Right: Eye BAUSCH & LOMB 08/13/2023 [id number] / [id number] / [id number] Envista Intraocular Lens Implanted:Qty: 1 on 03/24/2022 by Liang Marshall MD at [place] [facility] Left: Eye BAUSCH & LOMB 07/13/2024 [id number] / [id number] / [id number] documented as of this encounter Procedures Procedure Name Priority Date/Time Associated Diagnosis Comments OUTSIDE LAB-PT/INR Routine 10/27/2023 documented in this encounter Results * OUTSIDE LAB-PT/INR (10/27/2023) INR-OUTSIDE LAB 1.52 10/27/2023 History Per Patient LABORATORY documented in this encounter Visit Diagnoses Diagnosis Chronic atrial fibrillation (HCC)- Primary Atrial fibrillation documented in this encounter Advance Directives Documents on File Type Date Recorded Patient Back Hanger Expl anation POL 01/26/2021 [place] [facility] [...] Power of Attor andrew? No Care Teams Direct Support Worker Relationship Specialty Start Date End Date Jocelyne Desai DO [address] [place] [address] [place] [address] PCP - General Internal Medicine 11/09/16 documented as of this encounter
--- OUTSIDE RECORDS SUMMARY | 2024-01-29 18:01 | External Medical Summary | Summary of Care ---
Author Name Unknown Organization [facility] Address [address] [facility] [place] [address] Phone [phone] Care Team Providers Care Senior Gis Analyst Name Role Phone Jocelyne Desai DO Primary Care Provider [phone] Encounter Details Date Type Department Care Team (Late st Contact Info) Description 10/27/2023 Result Scan Unspecified Department <No scans attached> [...] [facility] for [facility] [phone] Televideo if needed. Problem Noted Date Diagnosed [...] ICD-10 update of inactive term PLATT RESEARCH OTHER*[id number] 02/20/2007 ADVANCE DIRECTIVE INFORMATION 01/19/2005 Overview: Yes, [...] 11/17/19 23 LUMBAGO 12/24/2002 05/09/2007 LOC PRIM [id number] 12/24/200208/13 DEGENERATIVE SKIN DISORD 12/24/2002 VERTEBRAL FX [...] No 02/16/2023 Does the household have a [facility] source of income? (Household - for [...] 11:10 AM EDT Office Visit Family Medicine [address] [place] [address] Jocelyne Desai [address] [place] [address] 11/20/2023 2:00 PM EDT Office Visit NephrologyCely [address] [place] [address] Jennifer Agustin MD [address] [place] [address] 01/19/2024 9:00 AM EST Office Visit Gastroenterology [address] [place] [address] Moon Avila CRNP [address] [place] [address] 02/20/2024 12:30 PM EST Nurse Only Ancillary [address] [place] [address] [place], Nurse Annual [facility]ness [address] [place] [address] [place] [address] 03/08/2024 2:30 PM EST Office Visit Family Medicine [address] [place] [phone] Jocelyne Desai[address] [place] [address] Scheduled Procedures Name Priority Associated Diagnoses Date/Ti [...] Additional history exists CKD PHOS USE SMARTSET 85360 08/22/202408/13, 07/18/2023, 07/03/2023, Additional history exists CKD HGB USE SMARTSET 21110 10/19/202410/19, 10/02/2023, 08/23/2023, Additional history exists DTap/Tdap [...] this encounter Medical Devices Implanted Type Area Rf Manager Device Identifier Shelf Expiration Date Model / Serial / Lot Shaft Fibula 6cm [id number] - [id number] Implanted:Qty: 1 on 09/05/2008 at [place] [facility] Tissue - Human N/A: Spine Cervical MUSCULOSKELETAL TRANSPLANT FND 04/20/2010 [id number] / [id number] 0P / Stent Eso Gw 22x70 47971-789 - [id number] Implanted:Qty: 1 on 01/21/2008 at OR [facility] N/A: Esophagus ALVEOLUS INC 04/12/2009 43726-219 / / [id number] Depuy Uniplate 32 Implanted:Qty: 1 on 09/05/2008 [...] [facility] N/A: Neck 1773--146 / [id number] / Plate Zach 3 Level Ti 54mm - [id number] Implanted:Qty: 1 on 05/07/2010 at [place] [facility] N/A: Neck JNJ : DEPUY SPINE [id number] 54 / / Screw Zach Const St Ti 14mm - [id number] Implanted:Qty: 4 on 05/07/2010 at [place] [facility] N/A: Neck JNJ : DEPUY SPINE [id number] 14 / / Screw 3.5x14 Mntr Fa [id number] - [id number] Implanted:Qty: 8 on 05/07/2010 at [place] [facility] N/A: Spine Cervical JNJ : ETHICON CARDIOVATIONS [id number] / / Jarrell [id number] - [id number] Implanted:Qty: 1 on 05/07/2010 at [place] [facility] N/A: Spine Cervical JNJ : ETHICON CARDIOVATIONS [id number] / / Screw Inner Mntr [id number] - [id number] Implanted:Qty: 8 on 05/07/2010 at [place] [facility] N/A: Spine Cervical JNJ : ETHICON CARDIOVATIONS [id number] / / Envista Intraocular Lens Implanted:Qty: 1 on 03/10/2022 by Liang Marshall MD at OR [facility] Right: Eye BAUSCH & LOMB 08/13/2023 [id number] / [id number] / [id number] Envista Intraocular Lens Implanted:Qty: 1 on 03/24/2022 by Liang Marshall MD at OR [facility] Left: Eye BAUSCH & LOMB 07/13/2024 [id number] / [id number] / [id number] documented as of this encounter Procedures Procedure Name Priority Date/Time Associated Diagnosis Comments OUTSIDE LAB RESULTS 10/27/2023 documented in this encounter Results * OUTSIDE LAB RESULTS (10/27/2023) 10/27/2023 No Physician Data Unknown LABORATORY documented in this encounter Advance Directives Documents on File Type Date Recorded Patient Nutritional Services Cook Expl anation POLST 01/26/2021 [place] [facility] [...] of Attor andrew? No Care Teams Senior Gis Analyst Relationship Specialty Start Date End Date Jocelyne Desai DO [address] [place] [address] [place] [phone] PCP - General Internal Medicine 11/09/16 documented as of this encounter
--- OUTSIDE RECORDS SUMMARY | 2024-01-29 18:01 | External Medical Summary | Summary of Care ---
Author Name Unknown Organization [facility] Address [address] [facility] [place] [address] Phone [phone] Care Team Providers Care Floor Surfacer Name Role Phone Jocelyne Desai DO Primary Care Provider + [phone] Reason for Visit * Reason Onset Date Comments Anemia Follow-Up 10/27/2023 * Evaluate & Treat - Unlimited Visits (Within 3 days (urgent)) - Authorized Specialty Diagnoses / Procedures Referred By Mingo de paz Referred To Contact Pharmacist / Pharmacy Diagnoses JORGE (acute kidney injury) (HCC) Anemia in stage 4 chronic kidney disease (HCC) Jocelyne Desai DO [address] [place] [address] [place] [address] Referral ID Status Reason Start Date Expiration Date Visits Requested Visits Authorized [id number] Authorized Specialty Services Required 10/26/2023 04/23/2024 99 99 Encounter Details Date Type Department Care Team (Late st Contact Info) Description 10/26/2023 9:00 AM EDT Pharmacy Pharmacy, [place] [address] [place] [address] Clinic, Anemia [address] [place] [address] Anemia, unspecified type* Allergies No known active allergiesdocumented as of [...] Good connectivity [facility] for wound care [phone] Televideo if needed. Problem Noted Date Diagnosed [...] ICD-10 update of inactive term PLATT RESEARCH OTHER*[id number] 02/20/2007 ADVANCE DIRECTIVE INFORMATION 01/19/2005 Overview: Yes, [...] 11/17/19 23 LUMBAGO 12/24/2002 05/09/2007 LOC PRIM [id number] 12/24/200208/13 DEGENERATIVE SKIN DISORD 12/24/2002 VERTEBRAL FX [...] MCG/0.3 mL, 12 YRS AND ABOVE, IM ([facility]) 11/16/2022 Covid-19, Mrna, Lnp-s, Pf, B ivalent, [...] as of this encounter Progress Notes * Slick Scott, [facility] - 10/27/2023 12:19 PM EDT Patient Phone Numbers Patient referred by Dr. Desai for evaluation of anemia by the Anemia Clinic. The Anemia Clinic is unable to accept referrals from family/internal medicine at this time. Anemia management will be deferred back to the referring provider. Thank you and sorry for the inconvenience. Slick Scott, PharmD, [facility] Clinical Pharmacist Anemia Clinic P: [phone] F: [phone] 10/27/2023 12:23 PM Lab Results Component Value Date/Time HGB 6.4 (A) 10/20/2023 12:00 AM HGB 8.2 (L) 10/02/2023 01:56 PM HGB 8.5 (L) 08/23/2023 12:46 PM HGB 8.3 (A) 08/16/2023 12:00 AM HGB 10.3 (A) 07/31/2023 12:00 AM HGB 14.0 10/17/2019 12:25 PM HGB 13.6 (L) 09/18/2019 11:02 AM HGB 14.3 08/13/2019 04:19 PM No results found for: "HEMOGLOBIN-OUTSIDE LAB" Results for orders placed or performed in visit on 08/23/23 IRON SCREEN, INCLUDING TIBC Result Value Ref Range Iron 19 (L) 45 - 176 ug/dL Iron Binding Capacity 311 250 - 425 ug/dL Transferrin Saturation Percent 6 (L) 15 - 55 % Results for orders placed or performed in visit on 07/18/23 IRON SCREEN, INCLUDING TIBC Result Value Ref Range Iron 30 (L) 45 - 176 ug/dL Iron Binding Capacity 270 250 - 425 ug/dL Transferrin Saturation Percent 11 (L) 15 - 55 % Results for orders placed or performed in visit on 05/13/22 IRON SCREEN, INCLUDING TIBC Result Value Ref Range Iron 48 45 - 176 ug/dL Iron Binding Capacity 310 250 - 425 ug/dL Transferrin Saturation Percent 15 15 - 55 % No results found for: "TRANSFERRIN SAT %-OUTSIDE LAB" Lab Results Component Value Date/Time FERRITIN - [facility] 116 08/23/2023 12:46 PM [facility] - [facility] 47 05/13/2022 02:41 PM [facility] - [facility] 75 10/16/2020 12:06 PM [facility] - [facility] 54.5 10/17/2019 12:25 PM [facility] - [facility] 56.0 06/26/2019 02:46 PM [facility] - [facility] 124.3 03/02/2018 12:24 PM No results found for: "FERRITIN-OUTSIDE LAB" documented in this encounter Plan of Treatment Upcoming Encounters Date Type Department Care Team (Late st Contact Info) Description 10/30/2023 6:30 AM EDT Anticoagulation Centralized Clinical Pharmacy Services, Ilya Lafleur [address] [place] [address] [place] [address] [place] [address] 11/01/2023 11:10 AM EDT Office Visit Family Medicine [address] [place] [phone] [address] [place] [address] 11/20/2023 2:00 PM EDT Office Visit Nephrology, Cely Zaldivar [address] [facility] [place] [address] Jennifer Agustin MD [address] [place] [address] 01/19/2024 9:00 AM EST Office Visit Gastroenterology [address] [place] [address] Moon Avila CRNP [address] [place] [address] 02/20/2024 12:30 PM EST Nurse Only Ancillary [address] [place] [address] [place], Nurse Annual [address] [place] [address] 03/08/2024 2:30 PM EST Office Visit Family Medicine [address] [place] [phone] Joeclyne Desai, [address] [place] [address] Scheduled Procedures Name Priority Associated Diagnoses Date/Ti [...] Additional history exists CKD PHOS USE SMARTSET 36297 08/22/202408/13, 07/18/2023, 07/03/2023, Additional history exists CKD HGB USE SMARTSET 14245 10/19/202410/19, 10/02/2023, 08/23/2023, Additional history exists DTap/Tdap [...] this encounter Medical Devices Implanted Type Area Mri Technician Device Identifier Shelf Expiration Date Model / Serial / Lot Shaft Fibula 6cm [id number] - [id number] Implanted:Qty: 1 on 09/05/2008 [place] [facility] [place] - Human N/A: Spine Cervical MUSCULOSKELETAL TRANSPLANT FND 04/20/2010 [id number] / [id number] / Stent Eso Gw 22x70 [id number] - [id number] Implanted:Qty: 1 on 01/21/2008 at [place] [facility] [place] N/A: Esophagus AL[employer]US INC 04/12/2009 87424-406 / / [id number] Depuy Uniplate 32 Implanted:Qty: 1 on 09/05/2008 [...] Plate Zach 3 Level Ti 54mm - [id number] Implanted:Qty: 1 on 05/07/2010 at [place] [facility] [place] N/A: Neck JNJ : DEPUY SPINE [id number] / / Screw Zach Const St Ti 14mm - [id number] Implanted:Qty: 4 on 05/07/2010 at [place] [facility] [place] N/A: Neck JNJ : DEPUY SPINE [id number] 14 / / Screw 3.5x14 Mntr Fa [id number] - [id number] Implanted:Qty: 8 on 05/07/2010 at [place] [facility] [place] N/A: Spine Cervical JNJ : ETHICON CARDIOVATIONS [id number] / / Jarrell [id number] - [id number] Implanted:Qty: 1 on 05/07/2010 at [place] [facility] [place] N/A: Spine Cervical JNJ : ETHICON CARDIOVATIONS [id number] / / Screw Inner Mntr [id number] - [id number] Implanted:Qty: 8 on 05/07/2010 at [place] [facility] [place] N/A: Spine Cervical JNJ : ETHICON CARDIOVATIONS [id number] / / Envista Intraocular Lens Implanted:Qty: 1 on 03/10/2022 by Liang Marshall MD at OR [facility] Right: Eye BAUSCH & LOMB 08/13/2023 [id number] / [id number] / [id number] Envista Intraocular Lens Implanted:Qty: 1 on 03/24/2022 by Liang Marshall MD at OR [facility] Left: Eye BAUSCH & LOMB 07/13/2024 [id number] / [id number] / [id number] documented as of this encounter Visit Diagnoses Diagnosis Anemia, unspecified type- Primary documented in this encounter Advance Directives Documents on File Type Date Recorded Patient Structural Fitter Expl anation POL 01/26/2021 [place] OR [facility] FOR [...] Power of Attor andrew? No Care Teams Floor Surfacer Relationship Specialty Start Date End Date Jocelyne Desai DO [address] [place] [address] [place] [address] PCP - General Internal Medicine 11/09/16 documented as of this encounter
--- OUTSIDE RECORDS SUMMARY | 2024-01-29 18:02 | External Medical Summary | Summary of Care ---
Author Name Unknown Organization [facility] Address [address] [facility] [address] Phone [phone] Care Team Providers Care Pool Table Operator Name Role Phone Jocelyne Desai Primary Care Provider Reason for Visit * Reason Onset Date Comments Outpatient Testing 10/27/2023 Encounter Details Date Type Department Care Team (Late st Contact Info) Description 10/27/2023 Telephone Nephrology, Cely Zaldivar [address] [place] [address] Jennifer Agustin MD [address] [facility] [place] [address] Outpatient Testing Allergies No known active allergiesdocumented [...] be different from the original. Good connectivity [facility] for wound care [phone] Televideo if needed. Problem Noted Date Diagnosed [...] ICD-10 update of inactive term PLATT RESEARCH OTHER*[id number] 02/20/2007 ADVANCE DIRECTIVE INFORMATION 01/19/2005 Overview: Yes, [...] [facility] office early next week will need [facility] provider recheck Multiple and open [...] 11/17/19 23 LUMBAGO 12/24/2002 05/09/2007 LOC PRIM [id number] 12/24/200208/13 DEGENERATIVE SKIN DISORD 12/24/2002 VERTEBRAL FX [...] Telephone Encounter - Marisela Peraza LPN - 10/27/2023 11:20 AM EDT Spoke with Anabelle [facility] states they are currently at pt's residence wondering if any labs are needed as he was getting weekly lab Anabelle is advised that patient was declining weekly labs as of 10/19/23 But that labs would be needed prior to his hospital follow up on 11/20/23 She requests lab orders faxed to home office at [phone] To be drawn around 11/12 at their regular schedule home visit Requisitions faxed [phone] no confirmation received as of yet documented in this encounter Plan of Treatment Upcoming Encounters Date Type Department Care Team (Late st Contact Info) Description 10/30/2023 6:30 AM EDT Anticoagulation Centralized Clinical Pharmacy Services, Ilya Lafleur [address] [place] [address] [place] [address] [facility], [address] [place] [address] 11/01/2023 11:10 AM EDT Office Visit Family Medicine [address] [place] [phone] [address] [place] [address] 11/20/2023 2:00 PM EDT Office Visit Nephrology, [facility] [address] [facility] [address] [place] [address] Jennifer Agustin MD [address] [place] [address] 01/19/2024 9:00 AM EST Office Visit Gastroenterology [address] [place] [address] Moon Avila CRNP [address] [place] [address] 02/20/2024 12:30 PM EST Nurse Only Ancillary [address] [place] [address] [place], Nurse [address] [place] [address] 03/08/2024 2:30 PM EST Office Visit Family Medicine [address] [place] [phone] [address] [place] [address] Scheduled Procedures Name Priority Associated Diagnoses Date/Ti [...] Additional history exists CKD PHOS USE SMARTSET 88273 08/22/2024 07/, 07/18/2023, 07/03/2023, Additional history exists CKD HGB USE SMARTSET 16243 10/19/202410/19, 10/02/2023, 08/23/2023, Additional history exists DTap/Tdap [...] this encounter Medical Devices Implanted Type Area Nut Blanker Operator Device Identifier Shelf Expiration Date Model / Serial / Lot Shaft Fibula 6cm [id number] - [id number] Implanted:Qty: 1 on 09/05/2008 [place] [facility] [place] - Human N/A: Spine Cervical MUSCULOSKELETAL TRANSPLANT FND 04/20/2010 [id number] / [id number] 0P / Stent Eso Gw 22x70 16869-822 - [id number] Implanted:Qty: 1 on 01/21/2008 [place] [facility] [place] N/A: Esophagus AL[employer]OLUS INC 04/12/2009 04856-049 / / [id number] Depuy Uniplate 32 Implanted:Qty: 1 on 09/05/2008 [...] [facility] [place] N/A: Neck 1773-06-146 / [id number] / Plate Zach 3 Level Ti 54mm - [id number] Implanted:Qty: 1 on 05/07/2010 at [place] [facility] [place] N/A: Neck JNJ : DEPUY SPINE [id number] 54 / / Screw Zach Const St Ti 14mm - [id number] Implanted:Qty: 4 on 05/07/2010 at [place] [facility] [place] N/A: Neck JNJ : DEPUY SPINE [id number] 14 / / Screw 3.5x14 Mntr Fa [id number] - [id number] Implanted:Qty: 8 on 05/07/2010 [place] [facility] [place]/A: Spine Cervical JNJ : ETHICON CARDIOVATIONS [id number] / / Jarrell [id number] - [id number] Implanted:Qty: 1 on 05/07/2010 at [place] [facility] [place]/A: Spine Cervical JNJ : ETHICON CARDIOVATIONS [id number] / / Screw Inner Mntr [id number] - [id number] Implanted:Qty: 8 on 05/07/2010 at [place] [facility] [place] N/A: Spine Cervical JNJ : ETHICON CARDIOVATIONS [id number] / / Envista Intraocular Lens Implanted:Qty: 1 on 03/10/2022 by Liang Marshall MD at OR [facility] Right: Eye BAUSCH & LOMB 08/13/2023 [id number] / [id number] / [id number] Envista Intraocular Lens Implanted:Qty: 1 on 03/24/2022 by Liang Mrashall MD at OR [facility] Left: Eye BAUSCH & LOMB 07/13/2024 [id number] / [id number] / [id number] documented as of this encounter Advance Directives Documents on File Type Date Recorded Patient Meter Repairer Helper Expl anation POL 01/26/2021 [place] OR [facility] FOR [facility]-SUSTAINING TREATMENT [...] Power of Attor andrew? No Care Teams Pool Table Operator Relationship Specialty Start Date End Date Jocelyne Desai DO [address] [place] [address] [place] [address] PCP - General Internal Medicine 11/09/16 documented as of this encounter
--- OUTSIDE RECORDS SUMMARY | 2024-01-29 18:02 | External Medical Summary | Summary of Care ---
Author Name Unknown Organization [facility] Address [address] [facility] [place] [address] Phone [phone] Care Team Providers Care Qa Engineer Name Role Phone Jocelyne Desai DO Primary Care Provider [phone] Encounter Details Date Type Department Care Team (Late st Contact Info) Description 10/26/2023 Population Health External Data Unspecified Department Allergies No known active allergiesdocumented as of this encounter (statuses as of 10/26/2023) Medications Medication Sig Dispensed Refills Start Date [...] as of this encounter (statuses as of 10/26/2023) Active Problems Patient Care Coordination No te Formatting of this note migh t be different from the original. Good connectivity [facility] for wound care [phone] Televideo if needed. Problem Noted Date Diagnosed [...] Letter in chart from [facility] podiatry they were unable to [...] ICD-10 update of inactive term PLATT RESEARCH OTHER*[id number] 02/20/2007 ADVANCE DIRECTIVE INFORMATION 01/19/2005 Overview: Yes, Patient instructed to provide copy of advance directive for provider to review and to be scanned into Electronic Medical Record No, Advance Directive brochure given to patient at prior appointment. SPINAL STENOSIS-LUMBAR 09/23/2002 Vitamin D deficiency Cervical spinal stenosis documented as of this encounter (statuses as of 10/26/2023) Resolved Problems Problem Noted Date Diagnosed Date Resolved Date Chronic kidney disease (CKD) , stage IV (severe) 09/27/2023 10/26/2023 Depression, unspecified 11/09/2021 03/2 Depression, unspecified 11/09/20210 05/2022 Cellulitis of right leg 07/13/202105/2022 Last Assessment & Plan: Suspect this could be early/localized. Will treat with 7 days antibiotic. If pt cannot be reassess by Dr. Braxton office early next week will need [facility] provider recheck Multiple and open [...] 02/27/2003 11/17/19 LUMBAGO 12/24/2002 05/09/2007 LOC PRIM [id number] 12/24/200208/13 DEGENERATIVE SKIN DISORD 12/24/2002 VERTEBRAL FX [...] as of this encounter (statuses as of 10/26/2023) Immunizations Name Administration Dates Next Due COVID-19 mRNA, LNP-s, No Pre serve, 2-Dose Series (Moderna) 03/19/2020 COVID-19 mRNA, LNP-s, No Pre serve, 2-Dose Series (Pfizer) 02/16/2021,04/09/2020,03/19/2020 COVID-19, MRNA-LNP, 23-24, P F, 30 MCG/0.3 mL, 12 YRS AND ABOVE, IM (Jack Erwin-Comirnaty) 11/16/2022 Covid-19, Mrna, Lnp-s, Pf, B ivalent, [...] Centralized Clinical Pharmacy Services, Ilya Lafleur [address] [place] [address] [place] [address] [place] [address] 11/01/2023 11:10 AM EDT Office Visit Family Medicine [address] [place] [phone] [address] [place] [address] 11/20/2023 2:00 PM EDT Office Visit Nephrology [address] [place] [address] Marycarmen Kowalski PA-C [address] [place] [address] 01/19/2024 9:00 AM EST Office Visit Gastroenterology [address] [place] [address] Moon Avila CRNP [address] [place] [address] 02/20/2024 12:30 PM EST Nurse Only Ancillary [address] [place] [address] [place], Nurse [address] [place] [address] 03/08/2024 2:30 PM EST Office Visit Family Medicine [address] [place] [phone] [address] [place] [address] Scheduled Procedures Name Priority Associated Diagnoses Date/Ti [...] this encounter Medical Devices Implanted Type Area Slicing Machine Feeder Device Identifier Shelf Expiration Date Model / Serial / Lot Shaft Fibula 6cm [id number] - [id number] Implanted:Qty: 1 on 09/05/2008 [place] [facility] [place] - Human N/A: Spine Cervical MUSCULOSKELETAL TRANSPLANT FND 04/20/2010 [id number] / [id number] / Stent Eso Gw 22x70 81090-458 - [id number] Implanted:Qty: 1 on 01/21/2008 [place] [facility] [place] N/A: Esophagus ALVEOLUS INC 04/12/2009 49574-505 / / [id number] Depuy Uniplate 32 Implanted:Qty: 1 on 09/05/2008 [place] [facility] [place] N/A: Spine Cervical TAMMY & TAMMY DEPUY 1896-03-302 / / Depuy Uniplate Screw 14mm Implanted:Qty: 2 on 09/05/2008 [place] [facility] [place] N/A: Spine Cervical TAMMY & TAMMY DEPUY 1896-07-017 / / Depuy Lordotic Bengal Cage Implanted:Qty: 1 on 05/07/2010 [place] [facility] [place] N/A: Neck 1773-06-146 / [id number] / Plate Zach 3 Level Ti 54mm - [id number] Implanted:Qty: 1 on 05/07/2010 [place] [facility] [place] N/A: Neck JNJ : DEPUY SPINE [id number] 54 / / Screw Zach Const St Ti 14mm - [id number] Implanted:Qty: 4 on 05/07/2010 [place] [facility] [place] N/A: Neck JNJ : DEPUY SPINE [id number] 14 / / Screw 3.5x14 Mntr Fa [id number] - [id number] Implanted:Qty: 8 on 05/07/2010 [place] [facility] [place] N/A: Spine Cervical JNJ : ETHICON CARDIOVATIONS [id number] / / Jarrell [id number] - [id number] Implanted:Qty: 1 on 05/07/2010 [place] [facility] [place] N/A: Spine Cervical JNJ : ETHICON CARDIOVATIONS [id number] / / Screw Inner Mntr [id number] - [id number] Implanted:Qty: 8 on 05/07/2010 [place] [facility] [place] N/A: Spine Cervical JNJ : ETHICON CARDIOVATIONS [id number] / / Envista Intraocular Lens Implanted:Qty: 1 on 03/10/2022 by Liang Marshall MD at [facility] Right: Eye BAUSCH & LOMB 08/13/2023 [id number] / [id number] / [id number] Envista Intraocular Lens Implanted:Qty: 1 on 03/24/2022 by Liang Marshall MD at [facility] Left: Eye BAUSCH & LOMB 07/13/2024 [id number] / [id number] / [id number] documented as of this encounter Advance Directives Documents on File Type Date Recorded Patient Vice President Quality Assurance Expl anation POLST 01/26/2021 [place] OR [facility] FOR LIFE-SUSTAINING TREATMENT [...] Health Care Power of Attor anderw? No * Full Code Date Activated Date [...] Power of Attor andrew? No Care Teams Qa Engineer Relationship Specialty Start Date End Date Jocelyne Desai DO [address] [place] [address] [place] [address] PCP - General Internal Medicine 11/09/16 documented as of this encounter
--- OUTSIDE RECORDS SUMMARY | 2024-01-29 18:02 | External Medical Summary | Summary of Care ---
Author Name Unknown Organization [facility] Address [address] [place] [address] Phone [phone] Care Team Providers Care Hydrogen Plant Operator Name Role Phone Jocelyne Desai Primary Care Provider + [phone] Reason for Referral * Precert (Within 10 days (routine)) - Pending Review Specialty Diagnoses / Procedures Referred By Mingo t Referred To Contact Radiology Diagnoses Solid nodule of lung 6 mm to 8 mm in diameter Procedures CT CHEST WO CONTRAST Zenia Herrera CRNP [address] [place] [address] Referral ID Status Reason Start Date Expiration Date V isits Requested Visits Authorized [id number] Pending Review 03/04/2024 999 999 Reason for Visit * Reason Onset Date Comments STAIR Lung Nodule 10/25/2023 Encounter Details Date Type Department Care Team (Late st Contact Info) Description 10/25/2023 Telephone STAIR LUNG NODULE [address] [place] [address] Zenia Herrera CRNP [address] [place] [address] STAIR Lung Nodule Allergies No known active allergiesdocumented as of this encounter (statuses as of 10/25/2023) Medications Medication Sig Dispensed Refills Start Date [...] as of this encounter (statuses as of 10/25/2023) Active Problems Patient Care Coordination No te Formatting of this note migh t be different from the original. Good connectivity [facility] for wound care [phone] Televideo if needed. 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 SPINAL STENOSIS-LUMBAR 09/23/2002 Vitamin D deficiency Cervical spinal stenosis documented as of this encounter (statuses as of 10/25/2023) Resolved Problems Problem Noted Date Diagnosed Date [...] 11/17/19 23 LUMBAGO 12/24/2002 05/09/2007 LOC PRIM [id number] 12/24/200208/13 DEGENERATIVE SKIN DISORD 12/24/2002 VERTEBRAL FX [...] as of this encounter (statuses as of 10/25/2023) Immunizations Name Administration Dates Next Due COVID-19 mRNA, LNP-s, No Pre serve, 2-Dose Series (Moderna) 03/19/2020 COVID-19 mRNA, LNP-s, No Pre serve, 2-Dose Series (Pfizer) 02/16/2021,04/09/2020,03/19/2020 COVID-19, MRNA-LNP, 23-24, P F, 30 MCG/0.3 mL, 12 YRS AND ABOVE, IM ([facility] 11/16/2022 Covid-19, Mrna, Lnp-s, Pf, B ivalent, [...] encounter Miscellaneous Notes * Telephone Encounter - Zenia Herrera CRNP - 10/25/2023 3:46 PM EDT STAIR note 73 year old male, never smoker, with PMHx for Atrial fib, DMT2, HTN, Depression, DLD, CKD and PVD who had CT chest in August to r/o Lung cancer (per CT order). MARIBELL 6.3 mm nodule noted. Based on Fleischner's guidelines recommend follow-up scan for a lung nodule 6-8 mm in 6-12 months. I attempted to call patient, left message with recommendation. OLEG Salazar documented in this encounter Plan of Treatment Upcoming Encounters Date Type Department Care Team (Late st Contact Info) Description 10/30/2023 6:30 AM EDT Anticoagulation Centralized Clinical Pharmacy Services, Ilya Lafleur [address] [place] [address] [place] [address] [facility], [address] [place] [address] 11/01/2023 11:10 AM EDT Office Visit Family Medicine [address] [place] [phone] [address] [place] [address] 11/20/2023 2:00 PM EDT Office Visit Nephrology [address] [place] [address] Marycarmen Kowalski PA-C 200 [facility] [place] [address] 01/19/2024 9:00 AM EST Office Visit Gastroenterology [address] [place] [address] Moon Avila, OLEG [address] [place] [address] 02/20/2024 12:30 PM EST Nurse Only Ancillary [address] [place] [address] [place], Nurse [facility] [address] [place] [address] [place] [address] 03/08/2024 2:30 PM EST Office Visit Family Medicine [address] [place] [phone] [address] [place] [address] Scheduled Orders Name Type Priority Associated Diagnoses Orde r Schedule CT CHEST WO CONTRAST Medical Imaging Routine Solid nodule of lung 6 mm to 8 mm in diameter Expected: 03/04/2024, Expires: 11/23/2024 Scheduled Procedures Name Priority Associated Diagnoses Date/Ti [...] this encounter Medical Devices Implanted Type Area Hunting Sales Leader Device Identifier Shelf Expiration Date Model / Serial / Lot Shaft Fibula 6cm [id number] - [id number] Implanted:Qty: 1 on 09/05/2008 at [place] [facility] [place] - Human N/A: Spine Cervical MUSCULOSKELETAL TRANSPLANT FND 04/20/2010 [id number] / [id number] 0P / Stent Eso Gw 22x70 [id number] - [id number] Implanted:Qty: 1 on 01/21/2008 at [place] [facility] N/A: Esophagus [employer] 04/12/2009 [id number] / / [id number] Depuy Uniplate 32 Implanted:Qty: 1 on 09/05/2008 [facility] [place] Neck [id number] / [id number] / Plate Zach 3 Level Ti 54mm - [id number] Implanted:Qty: 1 on 05/07/2010 at [place] [facility] N/A: Neck JNJ : DEPUY SPINE [id number] / / Screw Zach Const St Ti 14mm - [id number] Implanted:Qty: 4 on 05/07/2010 at [place] [facility] N/A: Neck JNJ : DEPUY SPINE [id number] 14 / / Screw 3.5x14 Mntr Fa [id number] - [id number] Implanted:Qty: 8 on 05/07/2010 at [place] [facility] N/A: Spine Cervical JNJ : ETHICON CARDIOVATIONS [id number] / / Jarrell [id number] - [id number] Implanted:Qty: 1 on 05/07/2010 at [place] [facility] N/A: Spine Cervical JNJ : ETHICON CARDIOVATIONS [id number] / / Screw Inner Mntr [id number] - [id number] Implanted:Qty: 8 on 05/07/2010 at [place] [facility] N/A: Spine Cervical JNJ : ETHICON CARDIOVATIONS [id number] / / Envista Intraocular Lens Implanted:Qty: 1 on 03/10/2022 by Liang Marshall MD at OR [facility] Right: Eye BAUSCH & LOMB 08/13/2023 [id number] / [id number] / [id number] Envista Intraocular Lens Implanted:Qty: 1 on 03/24/2022 by Liang Marshall MD at OR [facility] Left: Eye BAUSCH & LOMB 07/13/2024 [id number] / [id number] / [id number] documented as of this encounter Visit Diagnoses Diagnosis Solid nodule of lung 6 mm to 8 mm in diameter- Primary documented in this encounter Advance Directives Documents on File Type Date Recorded Patient Animal Cruelty Investigator Expl anation POLST 01/26/2021 [place] [facility] FOR [facility]-SUSTAINING TREATMENT [...] Power of Attor andrew? No Care Teams Hydrogen Plant Operator Relationship Specialty Start Date End Date Jocelyne Desai DO [address] [place] [address] [place] [address] PCP - General Internal Medicine 11/09/16 documented as of this encounter
--- OUTSIDE RECORDS SUMMARY | 2024-01-29 18:02 | External Medical Summary | Summary of Care ---
Author Name Unknown Organization [facility] Address [address] [facility] [place] [address] Phone [phone] Care Team Providers Care Pump And Still Operator Name Role Phone Jocelyne Desai DO Primary Care Provider [phone] Encounter Details Date Type Department Care Team (Late st Contact Info) Description 10/24/2023 Population Health External Data Unspecified Department Allergies No known active allergiesdocumented as of this encounter (statuses as of 10/24/2023) Medications Medication Sig Dispensed Refills Start Date [...] as of this encounter (statuses as of 10/24/2023) Active Problems Patient Care Coordination No te Formatting of this note migh t be different from the original. Good connectivity [facility] for wound care [phone] Televideo if needed. Problem Noted Date Diagnosed [...] with podiatry,. Letter in chart from [facility] podiatry they were unable to get [...] ICD-10 update of inactive term PLATT RESEARCH OTHER*[id number] 02/20/2007 ADVANCE DIRECTIVE INFORMATION 01/19/2005 Overview: Yes, Patient instructed to provide copy of advance directive for provider to review and to be scanned into Electronic Medical Record No, Advance Directive brochure given to patient at prior appointment. SPINAL STENOSIS-LUMBAR 09/23/2002 Vitamin D deficiency Cervical spinal stenosis documented as of this encounter (statuses as of 10/24/2023) Resolved Problems Problem Noted Date Diagnosed Date [...] severity 05/31/201905/2022 CSA (central sleep apnea) 12/05/[address] 03/02/201811/13 Kidney disease, chronic, [...] 11/17/19 23 LUMBAGO 12/24/2002 05/09/2007 LOC PRIM [id number] 12/24/200208/13 DEGENERATIVE SKIN DISORD 12/24/2002 VERTEBRAL FX [...] as of this encounter (statuses as of 10/24/2023) Immunizations Name Administration Dates Next Due COVID-19 [...] Centralized Clinical Pharmacy Services, Ilya Lafleur [address] [place] [address] [place] [address] [place] [address] 11/20/2023 2:00 PM EDT Office Visit Nephrology [address] [place] [address] Marycarmen Kowalski PA-C 200 [facility] [place] [address] 01/19/2024 9:00 AM EST Office Visit Gastroenterology [address] [place] [address] Moon Avila CRNP [address] [place] [address] 02/20/2024 12:30 PM EST Nurse Only Ancillary [address] [place] [address] [place], Nurse Annual [facility] [address] [place] [address] [place] [address] 03/08/2024 2:30 PM EST Office Visit Family Medicine [address] [place] [phone] Jocelyne Desai, [address] [place] [address] Scheduled Procedures Name Priority Associated Diagnoses Date/Ti [...] encounter Medical Devices Implanted Type Area Welder Gas Automatic Device Identifier Shelf Expiration Date Model / Serial / Lot Shaft Fibula 6cm [id number] - [id number] Implanted:Qty: 1 on 09/05/2008 at OR [facility] Tissue - Human N/A: Spine Cervical MUSCULOSKELETAL TRANSPLANT FND 04/20/2010 [id number] / [id number] 0P / Stent Eso Gw 22x70 29922-665 - [id number] Implanted:Qty: 1 on 01/21/2008 at OR [facility] N/A: Esophagus [employer]US INC 04/12/2009 73030-714 / / [id number] Depuy Uniplate 32 Implanted:Qty: 1 on 09/05/2008 [...] Plate Zach 3 Level Ti 54mm - [id number] Implanted:Qty: 1 on 05/07/2010 at OR [facility] N/A: Neck JNJ : DEPUY SPINE [id number] 54 / / Screw Zach Const St Ti 14mm - [id number] Implanted:Qty: 4 on 05/07/2010 at OR [facility] N/A: Neck JNJ : DEPUY SPINE [id number] 14 / / Screw 3.5x14 Mntr Fa [id number] - [id number] Implanted:Qty: 8 on 05/07/2010 at OR [facility] N/A: Spine Cervical JNJ : ETHICON CARDIOVATIONS [id number] / / Jarrell [id number] - [id number] Implanted:Qty: 1 on 05/07/2010 at OR [facility] N/A: Spine Cervical JNJ : ETHICON CARDIOVATIONS [id number] / / Screw Inner Mntr [id number] - [id number] Implanted:Qty: 8 on 05/07/2010 at OR [facility] N/A: Spine Cervical JNJ : ETHICON CARDIOVATIONS [id number] / / Envista Intraocular Lens Implanted:Qty: 1 on 03/10/2022 by Liang Marshall MD at [facility] Right: Eye BAUSCH & LOMB 08/13/2023 [id number] / [id number] / [id number] Envista Intraocular Lens Implanted:Qty: 1 on 03/24/2022 by Liang Marshall MD at OR [facility] Left: Eye BAUSCH & LOMB 07/13/2024 [id number] / [id number] / [id number] documented as of this encounter Advance Directives Documents on File Type Date Recorded Patient Manufacturing Lead Expl anation POL 01/26/2021 [place] [facility]-SUSTAINING TREATMENT [...] Power of Attor andrew? No Care Teams Pump And Still Operator Relationship Specialty Start Date End Date Jocelyne Desai DO [address] [place] [address] [place] [address] PCP - General Internal Medicine 11/09/16 documented as of this encounter
--- OUTSIDE RECORDS SUMMARY | 2024-01-29 18:02 | External Medical Summary | Summary of Care ---
Author Name Unknown Organization [facility] Address [address] [facility] [place] [address] Phone [phone] Care Team Providers Care Public Health Analyst Name Role Phone Jocelyne Desai DO Primary Care Provider Encounter Details Date Type Department Care Team (Late st Contact Info) Description 10/24/2023 Orders Only Family Medicine [address] [place] [phone] Jocelyne Desai DO [address] [place] [address] [place] [address] Allergies No known active allergiesdocumented as of [...] connectivity [facility] for wound care [phone] Televideo if needed. Problem Noted Date Diagnosed [...] ICD-10 update of inactive term PLATT RESEARCH OTHER*[id number] 02/20/2007 ADVANCE DIRECTIVE INFORMATION 01/19/2005 Overview: Yes, [...] 11/17/19 23 LUMBAGO 12/24/2002 05/09/2007 LOC PRIM [id number] 12/24/200208/13 DEGENERATIVE SKIN DISORD 12/24/2002 VERTEBRAL FX [...] Contact Info) Description 10/30/2023 6:30 AM EDT [facility] Clinical Pharmacy Services, Ilya Lafleur [address] [place] [address] [place] [address] [place] [address] 11/20/2023 2:00 PM EDT Office Visit Nephrology [address] [place] [address] ZemaMarycarmen lindsey PA-C [address] [place] [address] 01/19/2024 9:00 AM EST Office Visit Gastroenterology [address] [place] [address] Moon Avila, OLEG [address] [place] [address] 02/20/2024 12:30 PM EST Nurse Only Ancillary [address] [place] [address] [place], Nurse [address] [place] [address] 03/08/2024 2:30 PM EST Office Visit Family Medicine [address] [place] [phone] Jocelyne Desai, [address] [place] [address] Scheduled Procedures Name Priority Associated Diagnoses Date/Ti [...] 05/2022, 11/09/2022, Additional history exists GFR 04/03/2024 10/20/2023, 09/13, 09/26/2023, Additional history exists Albumin/Creatinine [...] this encounter Medical Devices Implanted Type Area Carroting Machine Offbearer Device Identifier Shelf Expiration Date Model / Serial / Lot Shaft Fibula 6cm 895149 - [id number] Implanted:Qty: 1 on 09/05/2008 at [place] [facility] Tissue - Human N/A: Spine Cervical MUSCULOSKELETAL TRANSPLANT FND 04/20/2010 [id number] / [id number] 0P / Stent Eso Gw 22x70 [id number] - [id number] Implanted:Qty: 1 on 01/21/2008 at [place] [facility] N/A: Esophagus AL[employer]OLUS INC 04/12/2009 06982-770 / / [id number] Depuy Uniplate 32 Implanted:Qty: 1 on 09/05/2008 [...] Plate Zach 3 Level Ti 54mm - [id number] Implanted:Qty: 1 on 05/07/2010 at [place] [facility] N/A: Neck JNJ : DEPUY SPINE [id number] 54 / / Screw Zach Const St Ti 14mm - [id number] Implanted:Qty: 4 on 05/07/2010 at [place] [facility] N/A: Neck JNJ : DEPUY SPINE [id number] 14 / / Screw 3.5x14 Mntr Fa [id number] - [id number] Implanted:Qty: 8 on 05/07/2010 at [place] [facility] N/A: Spine Cervical JNJ : ETHICON CARDIOVATIONS [id number] / / Jarrell [id number] - [id number] Implanted:Qty: 1 on 05/07/2010 at [place] [facility] N/A: Spine Cervical JNJ : ETHICON CARDIOVATIONS [id number] / / Screw Inner Mntr [id number] - [id number] Implanted:Qty: 8 on 05/07/2010 at [place] [facility] N/A: Spine Cervical JNJ : ETHICON CARDIOVATIONS [id number] / / Envista Intraocular Lens Implanted:Qty: 1 on 03/10/2022 by Liang Marshall MD at OR [facility] Right: Eye BAUSCH & LOMB 08/13/2023 [id number] / [id number] / [id number] Envista Intraocular Lens Implanted:Qty: 1 on 03/24/2022 by Liang Marshall MD at OR [facility] Left: Eye BAUSCH & LOMB 07/13/2024 [id number] / [id number] / [id number] documented as of this encounter Procedures Procedure Name Priority Date/Time Associated Diagnosis Comments CHEMISTRY-OUTSIDE Routine 10/20/2023 documented in this encounter Results * (ABNORMAL) CHEMISTRY-OUTSIDE (10/20/2023) Not all results display below - see scan for full detail OUTSIDE LAB (SEE SCANNED REPORT) Comment:SCAN INCL: BMP, HGB CREATININE-OUTSID E LAB 4.28(A) 0.70 - 1.30 MG/DL OUTSIDE LAB (SEE SCANNED REPORT) EGFR-OUTSIDE LAB 14(A) >=60 ML/MIN OUTSIDE LAB (SEE SCANNED REPORT) POTASSIUM-OUTSIDE LAB 4.4 3.5 - 5.1 MMOL/L OUTSIDE LAB (SEE SCANNED REPORT) GLUCOSE-OUTSIDE LAB 76 70 - 110 MG/DL OUTSIDE LAB (SEE [...] LAB OUTSIDE LAB (SEE SCANNED REPORT) HEMOGLOBIN, [id number] LAB OUTSIDE LAB (SEE SCANNED REPORT) PHOSPHORUS-OUTSID E LAB OUTSIDE LAB (SEE SCANNED REPORT) PTH-OUTSIDE LAB OUTS VAMSI LAB (SEE SCANNED REPORT) MICROALBUMIN RATIO-OUTSIDE LAB OUTSIDE LA B (SEE SCANNED REPORT) PROTEIN, UA-OUTSIDE LAB OUTSIDE LAB (SEE SCANNED REPORT) HGB 6.4(A) 13.5 - 18.0 GM/DL OUTSIDE LAB (SEE SCANNED REPORT) 10/20/2023 Jennifer Agustin MD LABORATORY OUTSIDE LAB (SEE SCANNED REPORT) documented in this encounter Advance Directives Documents on File Type Date Recorded Patient Guide Dog Mobility Instructor Expl anation POLST 01/26/2021 [place] OR [facility] AT [...] Power of Attor andrew? No Care Teams Public Health Analyst Relationship Specialty Start Date End Date Jocelyne Desai DO [address] [place] [address] [place] [address] PCP - General Internal Medicine 11/09/16 documented as of this encounter
[2024-01-29] MEDS: ACETAMINOPHEN 325 MG TAB PO PRN (18:13)
[2024-01-29] MEDS: INSULIN ASPART PER UNIT CHARGE SC SCH (18:28)
[2024-01-29] MEDS: IRON SUCROSE 300 MG in SODIUM CHLORIDE 0.9% 250 ML IV ONE (18:29)
[2024-01-29] MEDS: FUROSEMIDE 40 MG/4 ML VIAL IV ONE (18:29)
[2024-01-29 19:13] LABS: Hematocrit (blood only) 21.7 % (42.0-52.0); Hemoglobin 6.8 g/dl (14.0-18.0)
[2024-01-29] MEDS: FUROSEMIDE INJ 20 MG/2 ML VIAL IV ONE (19:18)
[2024-01-29 21:15] LABS: Appearance Urine Clear (Clear); Bacteria Urine Automated 2+ (None Seen); Bilirubin Urine Negative (Negative); Blood Urine Trace (Negative); Cast Urine Automated 0-2 /lpf (0-2); Color Urine Yellow; Epithelial Cell Urine Auto 0-2 /hpf (0-2); Glucose Urine UA Negative (Negative); Ketones Urine Negative (Negative); Leukocyte Esterase Urine 3+ (Negative); Nitrite Urine Negative (Negative); Protein Urine Trace (Negative); RBC Urine Automated 0-2 /hpf (0-2); Specific Gravity Urine 1.011 (1.000-1.030); Urobilinogen Urine Negative (Negative); WBC Urine Automated >50 /hpf (0-5)
[2024-01-29] MEDS: TAMSULOSIN HCL 0.4 MG CAP PO SCH (22:44)
[2024-01-29] MEDS: ATORVASTATIN 40 MG TAB PO SCH (22:44)
[2024-01-29] MEDS: CYANOCOBALAMIN (B-12) 500 MCG TABLET PO SCH (22:45)
[2024-01-29] MEDS: DOXYCYCLINE HYCLATE 100 MG CAP PO SCH (22:45)
[2024-01-30 00:36] LABS: Hematocrit (blood only) 22.6 % (42.0-52.0); Hemoglobin 7.2 g/dl (14.0-18.0)
[2024-01-30] MEDS ORDERED: SODIUM CHLORIDE 0.9% 50 ML IV PRN (04:50)
[2024-01-30] MEDS ORDERED: SODIUM CHLORIDE 0.9% 100 ML IV PRN (04:50)
[2024-01-30] MEDS: METOPROLOL SUCC 25MG EXT REL TAB PO SCH (09:38)
--- NOTE | 2024-01-30 09:51 | Gastrointestinal Consultation ---
<Statement entered by Michael Mckeon MD - 01/30/24 14:53> I personally saw and examined the patient. I have reviewed the chart and agree with the documentation provided by the [facility] including discussion about the assessment, treatment and plan. Briefly, 73 year old male with a past medical history of GI bleed, tachybradycardia syndrome status post pacemaker placement, CKD stage IV, history of CVA, CHF, cfi-tgogkeq-vpervavtp diabetes, HLD, PAF, history of gastric bypass in 2007, iron deficiency anemia, chronic leg wounds, who presented to the ED on 01/28 with complaints of worsening SOB over the past week. On arrival, he was found to be in volume overload with symptomatic anemia with a subtherapeutic INR for which she takes Coumadin for his paroxysmal A-fib. 01/28 INR was 8.4. He was inpatient earlier this year in October for similar issues and at that time it was recommended he pursue an outpatient capsule endoscopy Now per the nurse INR is 1.3 knees had 2 episodes of black stools. The stools are appear to be tarry in nature. He is on IV Protonix. Transfuse to a hemoglobin of 8.0. Will obtain old colonoscopy report. Will plan on an extended EGD tomorrow n.p.o. after midnight. Date of Consultation January 30, 2024 Assessment & Plan (1) Anemia: (2) Heme positive stool: Plan Patient is a 73 year old male with a past medical history of GI bleed, tachybradycardia syndrome status post pacemaker placement, CKD stage IV, history of CVA, CHF, mmb-nrjqlny-zwwdxxyfw diabetes, HLD, PAF, history of gastric bypass in 2007, iron deficiency anemia, chronic leg wounds, who presented to the ED on 01/28 with complaints of worsening SOB and found to have hgb of 6.4. He tested heme positive. He has received 2 units PRBC thus far with hgb rising to 7.2 today. - any endoscopic evaluation would need to be put on hold until correction of INR. - continue with protonix drip at this time and iron infusions. - continue to follow hgb/hct. tranfuse as needed. - will discuss case further with Dr. Mckeon, further recommendations to follow. History of Present Illness Reason for Consultation: GIB Requesting Physician: Lissa DEJESUS Attending Physician: Derik Curtis MD History of Present Illness Patient is a 73 year old male with a past medical history of GI bleed, tachybradycardia syndrome status post pacemaker placement, CKD stage IV, history of CVA, CHF, ofr-cxaduso-himwleiep diabetes, HLD, PAF, history of gastric bypass in 2007, iron deficiency anemia, chronic leg wounds, who presented to the ED on 01/28 with complaints of worsening SOB over the past week. On arrival, he was found to be in volume overload with symptomatic anemia with a subtherapeutic INR for which she takes Coumadin for his paroxysmal A-fib. 01/28 INR was 8.4. He was inpatient earlier this year in October for similar issues and at that time it was recommended he pursue an outpatient capsule endoscopy. He tells me he had followed with [facility] afterwards and was planned for a repeat colonoscopy but he has not been able to set up yet. He admits that stool has been a dark brown, but he has not seen black stools or brbpr. In the ED his stools did test heme positive. He tells me that he has had 3 bowel movements since admission. Last dose of coumadin was 2 days ago. he denies any nausea, vomiting, heartburn, dysphagia, abdominal pain. he denies nsaid use. He tells me that EGD was last done at [facility] in 09/2023 showing gastric bypass. Last colonoscopy was reportedly in 2021 and was unremarkable per patient. 01/28 hgb 6.4. 01/29 hgb 7.2 Allergies Allergy/AdvReac Type Severity Reaction Status Date / Time No Known Allergies Allergy Verified 10/21/23 17:49 Home Medications Medication Instructions Recorded Confirmed Type pediatric eivuxleb-ofvo-hxi 1 tab PO PM ##0 04/11/13 01/29/24 History (Flintstones Complete (iron) chewable tablet) atorvastatin 40 mg tablet 40 mg PO PM #0 tabs 01/08/17 01/29/24 History cholecalciferol (vitamin D3) 25 2,000 unit PO PM 10/18/17 01/29/24 History mcg (1,000 unit) capsule (Vitamin D3) cyanocobalamin (vitamin B-12) 1,000 mcg PO PM 05/06/19 01/29/24 History 1,000 mcg tablet tamsulosin 0.4 mg capsule 0.4 mg PO PM 05/06/19 01/29/24 History magnesium oxide 400 mg PO QAM 09/26/19 01/29/24 History acetaminophen 500 mg tablet 1,000 mg PO Q6H PRN Pain 12/17/20 01/29/24 History aspirin 81 mg tablet 81 mg PO DAILY 12/21/20 01/29/24 History warfarin 3 mg tablet See Rx Instructions .Route .COMPLEX 10/07/22 01/29/24 History metoprolol succinate 25 mg 25 mg PO QAM #30 tabs 10/16/22 01/29/24 Rx tablet,extended release 24 hr L.acidop,casei,lactis,rham-B.lact,scot 1 cap PO DAILY #30 caps 08/07/23 01/29/24 Rx 625 mg (10 billion cell) capsule (Advanced Probiotic) cyclobenzaprine 10 mg tablet 10 mg PO Q8H PRN Muscle Spasms 10/21/23 01/29/24 History oxycodone 5 mg tablet 5 mg PO Q6H PRN Pain 10/21/23 01/29/24 History potassium chloride 20 mEq 20 meq PO UD #30 tabs 10/24/23 01/29/24 Rx tablet,extended release(part/cryst) torsemide 20 mg tablet 20 mg PO UD #30 tabs 10/24/23 01/29/24 Rx Patient History Medical History MRSA infection Hyperlipemia Essential hypertension 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 kidney disease Degenerative cervical spinal stenosis Degenerative lumbar spinal stenosis Proliferative diabetic retinopathy Venous insufficiency of both lower extremities Erectile dysfunction Nonalcoholic 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 (PLATT) MCC current use of 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 Hyperparathyroidism, secondary renal Esophageal obstruction Complex sleep apnea syndrome Vitamin B12 deficiency Persistent proteinuria Paroxysmal SVT (supraventricular tachycardia) Myocardial Infarction 2017 > medically managed CHF (congestive heart failure) Acute renal failure superimposed on stage 3 chronic kidney disease 08/2020 hospitalization, UTI and osteomyelitis, necrotizing fasciitis Depression Sepsis 2013 Surgical History History of amputation of lesser toe of right foot Hx of angioplasty Amputation toe Right great toe amputation (08/12/20): MAC at 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 History of hand surgery Tendon transfer Gastric bypass status for obesity Family History Brother Diabetes Mother Diabetes Father Diabetes Other Cancer Hypertension Social History Smoking Status: Former smoker Tobacco Type: Cigarettes Cigarettes Per Day: quit a long time ago; Second Hand Exposure: No; Do You Dip or Chew Tobacco: No; Tobacco Cessation Education Requested by Patient: No Hx Alcohol Use: Yes Alcohol type: beer and wine Alcohol Intake Frequency: Monthly or Less Hx Substance Use: No Preferred Language: [place] 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 Ability: Effective Visual Impairment: No Limitations Hearing Ability: Normal Wellness Manager Required: No Beliefs That Will Affect Care: Christian marital status: Current Living Situation: Alone Current Living Situation Comment: Daughter lives upstairs. current occupational status: retired How many Children do You have: 2 Other Information That Helps Us Care for You: No Feels Safe at Home: Yes Safety Concerns: Feels Safe At This Time Diet Comment: Educated to increase protein, vitamin c, d and zinc Assistive Devices: Denture - Upper, Glasses and Walker Review of Systems Review of Systems: All systems reviewed & are unremarkable except as noted in HPI & below Physical Exam Constitutional: WD/WN, vitals as above Respiratory: normal respiratory effort, lungs clear to auscultation Cardiovascular: Rate/Rhythm: regular rate and regular rhythm Gastrointestinal (Abdomen): normal bowel sounds, soft, nontender, no hepatosplenomegaly Psychiatric: Orientation: alert and oriented x 3 Affect: euthymic affect Results & Data Vital Signs (Past 12 Hours) Vital Signs Temp Pulse Pulse Resp BP BP Pulse Ox 01/30/24 07:30 97.8 F 60 17 133/71 100 01/30/24 07:18 98.1 F 60 16 125/75 100 01/30/24 06:18 97.9 F 61 20 124/82 01/30/24 05:48 97.9 F 59 L 20 117/72 100 01/30/24 05:33 97.9 F 60 18 118/71 100 01/30/24 05:32 97.9 F 60 18 118/71 01/30/24 05:17 97.7 F 60 20 110/69 01/30/24 03:09 98.2 F 64 18 110/70 97 01/30/24 01:39 62 01/29/24 23:38 98.1 F 59 L 18 119/76 100 O2 Del Method O2 Flow Rate 01/30/24 07:30 Nasal Cannula 2 01/30/24 07:18 01/30/24 06:18 01/30/24 05:48 2 01/30/24 05:33 2 01/30/24 05:32 01/30/24 05:17 01/30/24 03:09 Room Air 01/30/24 01:39 01/29/24 23:38 Room Air Coding Level of Care Code 25851 INT INP/OBS CARE 2/55MIN Diagnoses Anemia D64.9 Anemia type: unspecified type Heme positive stool R19.5 (1) Anemia Anemia type: unspecified type Qualified Code(s): D64.9 - Anemia, unspecified
[2024-01-30 10:20] LABS: Hematocrit (blood only) 26.2 % (42.0-52.0); Hemoglobin 8.3 g/dl (14.0-18.0); Mean Corpuscular Hgb Conc 31.7 g/dL (32.0-36.0); Mean Corpuscular Volume 88.5 fL (80.0-100.0); Mean Platelet Volume 10.8 fL (9.4-12.4); Nucleated RBC # (auto) 0.02 K/uL (0.00-0.12); Nucleated RBC % (auto) 0.3 %; Platelet Count 148 K/uL (130-400); RDW Coefficient of Variation 18.5 % (11.5-14.5); Red Blood Count 2.96 M/uL (4.70-6.10); White Blood Count 7.43 K/ul (4.8-10.8)
[2024-01-30 10:41] LABS: Calcium 7.2 mg/dl (8.6-10.3); Creatinine Clr Calc Pharmacy 16.2 ml/min; Magnesium 1.6 mg/dl (1.7-2.4); Phosphorus 8.2 mg/dl (2.5-4.9); Potassium 4.5 mmol/L (3.5-5.1)
[2024-01-30 10:43] LABS: INR 1.3 (0.9-1.1); Prothrombin Time 13.5 Seconds (9.0-12.0)
[2024-01-30 11:35] LABS: Estimated Average Glucose 117 mg/dl; Hemoglobin A1C 5.7 % (4.5-5.6)
--- NOTE | 2024-01-30 11:43 | Hospitalist Progress Note ---
Date of Service January 30, 2024 Assessment & Plan (1) Symptomatic anemia: (2) Acute GI bleeding: (3) Atrial fibrillation: (4) Supratherapeutic INR: (5) CKD (chronic kidney disease) stage 4, GFR 15-29 ml/min: (6) Hypocalcemia: (7) CHF (congestive heart failure): (8) Diabetes type 2, controlled: (9) Hypertension: (10) Pacemaker: Plan 73 year old w/ PMH of GI bleed,TBS s/p pacemaker placement, CKD stage IV, CVA, CHF, fhx-qdvuglc-uwyfoccgj diabetes, HLD, PAF on Coumadin, history of gastric bypass in 2007, iron deficiency anemia, chronic leg wounds presented 01/28 with worsening SOB x1 week. at ED, he was noted to be volume overloaded with symptomatic anemia and supratherapeutic INR. He reports passing black stool for some time. He has had numerous admissions this year with the most recent being 10/21/23 for similar symptoms including worsening renal function. He has been followed by GI and Nephro as an outpatient with plans to start hemo vs peritoneal dialysis. His creatinine has been worsening over the past few months and it was expected per nephrology that he may require dialysis moving forward. He is being managed for the following: Symptomatic anemia Likely UGI bleed Hgb on arrival 6.4; baseline 8.0. FOBT +ve, complains for dark stool for a while. Recent anemia w/u 01/18: Fe+ 18, TIBC 298, Transferrin 6 Received iv venofer 300mg 01/28. s/p 1unit prbc, another unit being transfused. latest Hb 8.3. Monitor HnH Bid or prn. Transfuse for Hb < 7 or for symptomatic anemia. Consider lasix w/ prbc transfusion. Currently NPO, c/w PPI. INR 1.3, c/t hold coumadin. hold aspirin. Avoid NSAIDs. GI on board, await further recs. Supratherapeutic INR Ho AFib on Coumadin INR of 8.4 at admission, received 10 mg iv vit k and PCC x 1 at admission. 01/29 INR of 1.3. continue to hold coumadin, resume at reduced dose(/closely monitor) when cleared per GI. HR currently under control. Progressive CKD stage IV into V Volume overload iso worsening CKD Hypocalcemia and hyperphosphatemia iso progressive CKD CKD is chronic, progressive, being followed by nephro closely. Baseline Cr around 3-4.5; admitting 4.98. Most recent ECHO 06/16/23: EF 55-60%, mild LVH, mild MR, mild-moderate TR. Admitting CXR with interstitial pulmonary edema and bilateral pleural effusion, patient presented with some shortness of breath. Received 40 Mg IV Lasix after blood transfusion, reports some improvement in his breathing, utilizing 2 L nasal cannula oxygen, does not use oxygen at home. Ca low iso worsening renal fxn, monitor and replete. Expect to improve with dialysis being planned per nephrology. Continue to monitor volume status closely. Nephro on board, d/w nephro, planning for dialysis probably this admission. Pt still makes urine, use lasix w/ blood transfusion unless otherwise mentioned in nephro recommendations. Chronic leg wounds: WOCN order placed. Empirically started on doxycycline H/O Gastric bypass: Oss-egpbeio-zodtpbpyy diabetes mellitus: 2007 Anders-en-Y at [facility] [place]; he came off of insulin after his procedure Does not take any oral agents EGD 2007:- Z-line regular, 45 cm from the incisors. - No gross lesions in esophagus. - Stenosed Anders-en-Y gastrojejunostomy was found. EGD 2023: - Normal esophagus. - Z-line regular. - Gastric bypass with a normal-sized pouch. Gastrojejunal anastomosis characterized by healthy appearing mucosa. - Normal examined jejunum Colonoscopy 2010: - Preparation of the colon was poor. - Stool entire examined colon. - The examination was otherwise normal Colonoscopy 2021: - The examined portion of the ileum was normal. - The entire examined colon is normal on direct and retroflexion views. - No specimens collected HTN: Chronic. Takes metoprolol; continue HLD: Takes atorvastatin; continue Tachybradycardia syndrome, Status post pacemaker: c/w home cardiac meds as able. Disposition: PCP: Jocelyne Desai PA-C CODE STATUS: Full code VTE prophylaxis teds and SCDs for now pt/ot cm to assist w/ dc plan. Admission and Anticipated Discharge Date Admission Date: January 29, 2024 Subjective patient was seen and examined at bedside. Patient was lying in bed, on 2 L oxygen via nasal cannula, reports improvement in shortness of breath somewhat, denies chest pain. Patient denies any sore throat or febrile illness. LLE with clean dressing without soakage. Physical Exam Physical Exam: General Appearance: Chronically ill-appearing, no apparent distress, on 2L NC O2. Head: normocephalic, Atraumatic Eyes: normal inspection, EOMI,+ pallor Neck: supple, Trachea midline,+ JVD Respiratory/Chest: Decreased breath sounds, basal crackles bilaterally, No accessory muscle use Cardiovascular: S1, S2, No murmur,+ pacemaker Abdomen/GI:Soft, Non tender, Bowel sounds present Extremities/Musculoskeletal:normal inspection, B/L LE Wounds, 2-3+ Edema, R great Toe S/P amputation Neurologic/Psych:AAOX3, grossly no focal neurological deficits Skin: normal color, warm Results & Data Results & Data Vital Signs (Past 12 Hours) Vital Signs Temp Pulse Pulse Resp BP BP Pulse Ox 01/30/24 07:30 36.6 C 60 17 133/71 100 01/30/24 07:18 36.7 C 60 16 125/75 100 01/30/24 06:18 36.6 C 61 20 124/82 01/30/24 05:48 36.6 C 59 L 20 117/72 100 01/30/24 05:33 36.6 C 60 18 118/71 100 01/30/24 05:32 36.6 C 60 18 118/71 01/30/24 05:17 36.5 C 60 20 110/69 01/30/24 03:09 36.8 C 64 18 110/70 97 01/30/24 01:39 62 01/29/24 23:38 36.7 C 59 L 18 119/76 100 O2 Del Method O2 Flow Rate 01/30/24 07:30 Nasal Cannula 2 01/30/24 07:18 01/30/24 06:18 01/30/24 05:48 2 01/30/24 05:33 2 01/30/24 05:32 01/30/24 05:17 01/30/24 03:09 Room Air 01/30/24 01:39 01/29/24 23:38 Room Air
--- NOTE | 2024-01-30 12:12 | Nephrology Consultation ---
Date of Consultation January 30, 2024 Assessment & Plan (1) JORGE (acute kidney injury): Creat did go up from yesterday and now is 5.14 and BUN > 118. But this is more progression of ESRD than a true new onset JORGE. Creat and BUN up even though he did get PRBC and Also IVF with protonix drip. He has e/o ESRD--Severe Anemia, Pulm edema, Hypocalcemia. Overall health status is very poor so lot less likely to tolerate severe renal failure. There was Discussion about PD vs IHD as outpt. Discussed with patient and he is fine with either modalities. Will see one more day how he responds but it appears we need to start Chronic Maintenance hemodialysis at this point. Will keep him NPO after MD jay. Hopefully INR will be reversed by tomorrow. based on labs and exam will make the final decision. patient already agreeable to dialysis if needed. Will give lasix 80 iv bid. At home was on demadex 60 bid ( most recent dose since ) . Also spoke with Dr Agustin and update her the current situation. (2) CKD (chronic kidney disease) stage 5, GFR less than 15 ml/min: See note above under JORGE (3) CHF (congestive heart failure): has Pulm edema and this is driven mainly by progression of CKD 5 to ESRD. lasix 80 iv bid. (4) Anemia: has severe anemia of CKD at baseline with h/o GI bleed and now likely GI bleed and High INR. Got PRBC x 2 . Possible GI procedure. Will give her procrit 17159 unit also. Has received Iv venofer also as outpt. Plan Discussed with primary team and in agreement. Discussed with patient in detail and updated the situation and discussed the plan. time spent 61 min. History of Present Illness Reason for Consultation: JORGE on CKD 5 and pulm edema Attending Physician: Derik Curtis MD History of Present Illness 73/M with progressive CKD 5 (creat baseline 4.1--4.8 lately) came to the ED with worsening SOB x1 week. CXR showed Pulm edema and labs were slightly worse. Hgb 6.2 and then got PRBC x 2 with lasix 80 iv x 1. He has a PMH that includes: GI bleed, tachybradycardia syndrome status post pacemaker placement, history of CVA, CHF, ubt-xojzpjs-asiiigllr diabetes, HLD, PAF, history of gastric bypass in 2007, iron deficiency anemia, chronic leg wounds b/l. On arrival, he was Found to be in volume overload with symptomatic anemia with a supratherapeutic INR for which she takes Coumadin for his paroxysmal A-fib. He has had numerous admissions this year with the most recent being 10/21/23 for similar symptoms including worsening renal function. He has been followed by Dr Agustin in Nephro as an outpatient with plans to start hemo vs peritoneal dialysis. Decision was still being made regarding this and was supposed to have home visit for this today. He has been seen by Vascular and actually has appt on for vein mapping. In the ED he was found to be anemic with a hemoglobin of 6.4; baseline 8 ( despite iv iron and procrit as outpt). Still adriana weak and SOB and needing o2. ROS----See HPI. otherwise 12 systems reviewed and negative Physical Exam Physical Exam: General Appearance: Chronically ill-appearing, mild resp distress, on 2L NC O2. Neck: supple, Trachea midline,+ JVD Respiratory/Chest: Decreased breath sounds, basal crackles bilaterally Cardiovascular: S1, S2, No murmur,+ pacemaker Abdomen/GI:Soft, Non tender, Bowel sounds present Extremities/Musculoskeletal:normal inspection, B/L LE Wounds, 2+ Edema, R great Toe S/P amputation Neurologic/Psych:AAOX3, grossly no focal neurological deficits Skin: normal color, warm Allergies Allergy/AdvReac Type Severity Reaction Status Date / Time No Known Allergies Allergy Verified 10/21/23 17:49 Home Medications Medication Instructions Recorded Confirmed Type pediatric galxczep-mizb-uay 1 tab PO PM ##0 04/11/13 01/29/24 History (Ne Complete (iron) chewable tablet) atorvastatin 40 mg tablet 40 mg PO PM #0 tabs 01/08/17 01/29/24 History cholecalciferol (vitamin D3) 25 2,000 unit PO PM 10/18/17 01/29/24 History mcg (1,000 unit) capsule (Vitamin D3) cyanocobalamin (vitamin B-12) 1,000 mcg PO PM 05/06/19 01/29/24 History 1,000 mcg tablet tamsulosin 0.4 mg capsule 0.4 mg PO PM 05/06/19 01/29/24 History magnesium oxide 400 mg PO QAM 09/26/19 01/29/24 History acetaminophen 500 mg tablet 1,000 mg PO Q6H PRN Pain 12/17/20 01/29/24 History aspirin 81 mg tablet 81 mg PO DAILY 12/21/20 01/29/24 History warfarin 3 mg tablet See Rx Instructions .Route .COMPLEX 10/07/22 01/29/24 History metoprolol succinate 25 mg 25 mg PO QAM #30 tabs 10/16/22 01/29/24 Rx tablet,extended release 24 hr L.acidop,casei,lactis,rham-B.lact,scot 1 cap PO DAILY #30 caps 08/07/23 01/29/24 Rx 625 mg (10 billion cell) capsule (Advanced Probiotic) cyclobenzaprine 10 mg tablet 10 mg PO Q8H PRN Muscle Spasms 10/21/23 01/29/24 History oxycodone 5 mg tablet 5 mg PO Q6H PRN Pain 10/21/23 01/29/24 History potassium chloride 20 mEq 20 meq PO UD #30 tabs 10/24/23 01/29/24 Rx tablet,extended release(part/cryst) torsemide 20 mg tablet 20 mg PO UD #30 tabs 10/24/23 01/29/24 Rx Patient History Medical History MRSA infection Hyperlipemia Essential hypertension 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 kidney disease Degenerative cervical spinal stenosis Degenerative lumbar spinal stenosis Proliferative diabetic retinopathy Venous insufficiency of both lower extremities Erectile dysfunction Nonalcoholic 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 (PLATT) intermediate current use of 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 Hyperparathyroidism, secondary renal Esophageal obstruction Complex sleep apnea syndrome Vitamin B12 deficiency Persistent proteinuria Paroxysmal SVT (supraventricular tachycardia) Myocardial Infarction 2017 > medically managed CHF (congestive heart failure) Acute renal failure superimposed on stage 3 chronic kidney disease 08/2020 hospitalization, UTI and osteomyelitis, necrotizing fasciitis Depression Sepsis 2013 Surgical History History of amputation of lesser toe of right foot Hx of angioplasty Amputation toe Right great toe amputation (08/12/20): MAC at [facility] History of esophagogastroduodenoscopy (EGD) History of vascular surgery Left 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, 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) Right great toe I&D, revision amputation (08/21/20): MAC at [facility] History of hand surgery Tendon transfer Gastric bypass status for obesity Family History Brother Diabetes Mother Diabetes Father Diabetes Other Cancer Hypertension Social History Smoking Status: Former smoker Tobacco Type: Cigarettes Cigarettes Per Day: quit a long time ago; Second Hand Exposure: No; Do You Dip or Chew Tobacco: No; Tobacco Cessation Education Requested by Patient: No Hx Alcohol Use: Yes Alcohol type: beer and wine Alcohol Intake Frequency: Monthly or Less Hx Substance Use: No Preferred Language: Kyrgyz 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 Ability: Effective Visual Impairment: No Limitations Hearing Ability: Normal Recruiting Operations Consultant Required: No Beliefs That Will Affect Care: Yazidism marital status: Current Living Situation: Alone Current Living Situation Comment: Daughter lives upstairs. current occupational status: retired How many Children do You have: 2 Other Information That Helps Us Care for You: No Feels Safe at Home: Yes Safety Concerns: Feels Safe At This Time Diet Comment: Educated to increase protein, vitamin c, d and zinc Assistive Devices: Walker Results & Data Vital Signs (Past 12 Hours) Vital Signs Temp Pulse Pulse Resp BP BP Pulse Ox 01/30/24 11:49 36.8 C 60 20 120/80 99 01/30/24 07:30 36.6 C 60 17 133/71 100 01/30/24 07:18 36.7 C 60 16 125/75 100 01/30/24 06:18 36.6 C 61 20 124/82 01/30/24 05:48 36.6 C 59 L 20 117/72 100 01/30/24 05:33 36.6 C 60 18 118/71 100 01/30/24 05:32 36.6 C 60 18 118/71 01/30/24 05:17 36.5 C 60 20 110/69 01/30/24 03:09 36.8 C 64 18 110/70 97 01/30/24 01:39 62 O2 Del Method O2 Flow Rate 01/30/24 11:49 Nasal Cannula 2 01/30/24 07:30 Nasal Cannula 2 01/30/24 07:18 01/30/24 06:18 01/30/24 05:48 2 01/30/24 05:33 2 01/30/24 05:32 01/30/24 05:17 01/30/24 03:09 Room Air 01/30/24 01:39 Laboratory Results CBC, renal Panel, CXR both inpt and outpt reviewed. (3) CHF (congestive heart failure) Heart failure chronicity: acute Heart failure type: unspecified Qualified Code(s): I50.9 - Heart failure, unspecified (4) Anemia Anemia type: unspecified type Qualified Code(s): D64.9 - Anemia, unspecified
[2024-01-30] MEDS: MAGNESIUM SULFATE / D5W 1 GM/100 ML BAG IV SCH (12:17)
[2024-01-30] MEDS: MAGNESIUM OXIDE 400 MG TAB PO SCH (12:17)
[2024-01-30] MEDS: CALCIUM GLUCONATE 1,000 MG/60 ML BAG IV STA (12:37)
[2024-01-30] MEDS: FUROSEMIDE 40 MG/4 ML VIAL IV SCH (14:23)
[2024-01-30] MEDS: EPOETIN ALFA 20,000 UNITS/ML VIAL SQ ONE (16:31)
[2024-01-30 20:08] LABS: Hematocrit (blood only) 24.6 % (42.0-52.0); Hemoglobin 8.1 g/dl (14.0-18.0)
[2024-01-30] MEDS: ONDANSETRON INJ 2 MG/ML 2 ML VIAL IV PRN (20:44)
[2024-01-31 07:51] LABS: Hematocrit (blood only) 26.5 % (42.0-52.0); Hemoglobin 8.6 g/dl (14.0-18.0); Mean Corpuscular Hemoglobin 28.8 pg (25.0-34.0); Mean Corpuscular Hgb Conc 32.5 g/dL (32.0-36.0); Mean Corpuscular Volume 88.6 fL (80.0-100.0); Mean Platelet Volume 11.2 fL (9.4-12.4); Platelet Count 164 K/uL (130-400); RDW Coefficient of Variation 19.4 % (11.5-14.5); RDW Standard Deviation 58.3 fL (36.4-46.3); Red Blood Count 2.99 M/uL (4.70-6.10); White Blood Count 7.61 K/ul (4.8-10.8)
[2024-01-31 08:13] LABS: BUN Creatinine Ratio 22.5 (10-20); Calcium 7.7 mg/dl (8.6-10.3); Creatinine Clr Calc Pharmacy 15.5 ml/min; Magnesium 1.9 mg/dl (1.7-2.4); Phosphorus 8.5 mg/dl (2.5-4.9); Potassium 3.9 mmol/L (3.5-5.1)
--- NOTE | 2024-01-31 09:25 | Anesthesiology Consultation ---
Date of Service January 31, 2024 Assessment & Plan (1) Encounter for pre-operative examination: Chart Review Chart Review: Acceptable Risk for Surgery, Patient NOT seen in Pre Admission Testing and entry level marketing representative initiated Consults Requested none Proposed Anesthesia Anesthesia Type: MAC History Surgery Operation Date: 01/31/24 16:30 Proposed Procedures p Esophagogastroduodenoscopy Linda Mckeon MD Height/Weight Height: 5 ft 11 in Weight: 100.8 kg Allergies Allergy/AdvReac Type Severity Reaction Status Date / Time No Known Allergies Allergy Verified 10/21/23 17:49 Medications Home Medications Medication Instructions Recorded Confirmed Last Taken pediatric [id number] 1 tab PO PM ##0 04/11/13 01/29/24 07/31/23 (Flintstones Complete (iron) chewable tablet) atorvastatin 40 mg tablet 40 mg PO PM #0 tabs 01/08/17 01/29/24 07/31/23 cholecalciferol (vitamin D3) 25 2,000 unit PO PM 10/18/17 01/29/24 07/31/23 mcg (1,000 unit) capsule (Vitamin D3) cyanocobalamin (vitamin B-12) 1,000 mcg PO PM 05/06/19 01/29/24 07/31/23 1,000 mcg tablet tamsulosin 0.4 mg capsule 0.4 mg PO PM 05/06/19 01/29/24 07/31/23 magnesium oxide 400 mg PO QAM 09/26/19 01/29/24 08/01/23 acetaminophen 500 mg tablet 1,000 mg PO Q6H PRN Pain 12/17/20 01/29/24 12/27/20 aspirin 81 mg tablet 81 mg PO DAILY 12/21/20 01/29/24 07/31/23 warfarin 3 mg tablet See Rx Instructions .Route .COMPLEX 10/07/22 01/29/24 07/31/23 metoprolol succinate 25 mg 25 mg PO QAM #30 tabs 10/16/22 01/29/24 08/01/23 tablet,extended release 24 hr L.acidop,casei,lactis,rham-B.lact,scot 1 cap PO DAILY #30 caps 08/07/23 01/29/24 Unknown 625 mg (10 billion cell) capsule (Advanced Probiotic) cyclobenzaprine 10 mg tablet 10 mg PO Q8H PRN Muscle Spasms 10/21/23 01/29/24 Unknown oxycodone 5 mg tablet 5 mg PO Q6H PRN Pain 10/21/23 01/29/24 Unknown potassium chloride 20 mEq 20 meq PO UD #30 tabs 10/24/23 01/29/24 07/31/23 tablet,extended release(part/cryst) torsemide 20 mg tablet 20 mg PO UD #30 tabs 10/24/23 01/29/24 Unknown Active Medications Generic Name Dose Route Start Last Admin Trade Name Freq PRN Reason Stop Dose Admin Acetaminophen 650 mg 01/29/24 13:02 01/30/24 01:11 Acetaminophen 325 Mg Tab PO 02/28/24 13:01 650 mg Q4H PRN Administration Pain or Fever Atorvastatin Calcium 40 mg 01/29/24 21:00 01/30/24 20:36 Atorvastatin 40 Mg Tab PO 02/28/24 20:59 40 mg PM COOKIE Administration Cyanocobalamin 1,000 mcg 01/29/24 21:00 01/30/24 20:36 Cyanocobalamin (B-12) 500 Mcg Tablet PO 02/28/24 20:59 1,000 mcg QPM COOKIE Administration Doxycycline Hyclate 100 mg 01/29/24 21:00 01/31/24 08:19 Doxycycline Hyclate 100 Mg Cap PO 02/05/24 20:59 100 mg BID COOKIE Administration Furosemide 80 mg 01/30/24 12:30 01/30/24 17:26 Furosemide 40 Mg/4 Ml Vial IV 02/29/24 12:29 80 mg BID17 COOKIE Administration Pantoprazole Sodium 40 mg/ 100 mls @ 20 mls/hr 01/29/24 13:30 01/31/24 07:55 Dextrose IV 02/28/24 13:29 8 mg/hr Q5H COOKIE 20 mls/hr Administration 8 MG/HR Magnesium Oxide 400 mg 01/30/24 12:00 01/30/24 12:17 Magnesium Oxide 400 Mg Tab PO 02/29/24 11:59 400 mg DAILY@1200 COOKIE Administration Metoprolol Succinate 25 mg 01/30/24 09:00 01/31/24 07:56 Metoprolol Succ 25mg Ext Rel Tab PO 02/29/24 08:59 25 mg QAM COOKIE Administration Ondansetron HCl 4 mg 01/29/24 13:02 01/31/24 08:59 Ondansetron Inj 2 Mg/Ml 2 Ml Vial IV 02/28/24 13:01 4 mg Q6H PRN Administration Nausea Tamsulosin HCl 0.4 mg 01/29/24 21:00 01/30/24 20:36 Tamsulosin Hcl 0.4 Mg Cap PO 02/28/24 20:59 0.4 mg PM COOKIE Administration Past Medical History Medical History MRSA infection Hyperlipemia Essential hypertension 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 kidney disease Degenerative cervical spinal stenosis Degenerative lumbar spinal stenosis Proliferative diabetic retinopathy Venous insufficiency of both lower extremities Erectile dysfunction Nonalcoholic 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 (PLATT) 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 of 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 Hyperparathyroidism, secondary renal Esophageal obstruction Complex sleep apnea syndrome Vitamin B12 deficiency Persistent proteinuria Paroxysmal SVT (supraventricular tachycardia) Myocardial Infarction 2017 > medically managed CHF (congestive heart failure) Acute renal failure superimposed on stage 3 chronic kidney disease 08/2020 hospitalization, UTI and osteomyelitis, necrotizing fasciitis Depression Sepsis 2013 Past Family History Family History Brother Diabetes Mother Diabetes Father Diabetes Other Cancer Hypertension Past Surgical History Surgical History History of amputation of lesser toe of right foot Hx of angioplasty Amputation toe Right great toe amputation (08/12/20): MAC at [facility] History of esophagogastroduodenoscopy (EGD) History of vascular surgery Left popliteal, EVELINE 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) Right great toe I&D, revision amputation (08/21/20): MAC at [facility] History of hand surgery Tendon transfer Gastric bypass status for obesity Social History Smoking Status: Former smoker Smoking cigarettes per day: quit a long time ago Do You Dip or Chew Tobacco: No Hx Alcohol Use: Yes Alcohol type: beer and wine alcohol intake frequency: holidays/special occasions only Hx Substance Use: No substance use type: does not use Physical Exam Vital Signs Last Vital Signs Temp 36.6 C 01/31/24 07:10 Pulse 60 01/31/24 07:10 Resp 20 01/31/24 07:10 BP 124/75 01/31/24 07:10 Pulse Ox 98 01/31/24 07:10 O2 Del Method Nasal Cannula 01/31/24 07:10 O2 Flow Rate 2 01/31/24 07:10 Testing Laboratory Results 01/31/24 06:40 01/31/24 06:40 PT 13.5 Seconds (9.0-12.0) H 01/30/24 09:55 INR 1.3 (0.9-1.1) H 01/30/24 09:55 APTT 58 Seconds (21-31) H 01/29/24 11:00 Hemoglobin A1c 5.7 % (4.5-5.6) H 01/30/24 09:55 Urine Color Yellow 01/29/24 Unknown Urine Appearance Clear (Clear) 01/29/24 Unknown Urine pH 5.0 (4.5-7.5) 01/29/24 Unknown Ur Specific [place] 1.011 (1.000-1.030) 01/29/24 Unknown Urine Protein Trace (Negative) H 01/29/24 Unknown Urine Glucose (UA) Negative (Negative) 01/29/24 Unknown Urine Ketones Negative (Negative) 01/29/24 Unknown Urine Nitrite Negative (Negative) 01/29/24 Unknown Ur Leukocyte Esterase 3+ (Negative) H 01/29/24 Unknown Urine WBC (Auto) >50 /hpf (0-5) H 01/29/24 Unknown Urine RBC (Auto) 0-2 /hpf (0-2) 01/29/24 Unknown U Hyaline Cast (Auto) 0-2 /lpf (0-2) 01/29/24 Unknown U Epithel Cells (Auto) 0-2 /hpf (0-2) 01/29/24 Unknown Urine Bacteria (Auto) 2+ (None Seen) H 01/29/24 Unknown Blood Type AB Positive 01/29/24 11:54 Antibody Screen NEGATIVE 01/29/24 11:54 01/29/24 Unknown Urine Culture - Preliminary Urine,Clean Catch Pin-point growth present, reincubating. 01/31/24 07:29 POC Glucose 153 H Electrocardiogram Date: 01/29/24 Ventricular paced at 75 Chest X-Ray Date: 01/29/24 CLINICAL HISTORY: weakness COMPARISON STUDY: Chest radiograph October 22, 2023. FINDINGS: Left subclavian pacer is in place. Cardiomegaly is unchanged. There is interstitial thickening. Moderate bilateral pleural effusions with associated bibasilar opacities are present. IMPRESSION: Cardiomegaly with interstitial pulmonary edema, moderate bilateral pleural effusions and associated bibasilar opacities. Echocardiogram Date: 06/16/23 EF: 55-90 LV Function: normal Other Findings: + atrial enlargement (Left atrium severely dilated) and + LVH (mild) Valvular Disease: + MR (mild) Pacer lead in right ventricle
--- NOTE | 2024-01-31 10:40 | History & Physical Bridge Note ---
<Statement entered by Michael Mckeon MD - 01/31/24 12:57> I personally saw and examined the patient. I have reviewed the chart and agree with the documentation provided by the FILM MOUNTER including discussion about the assessment, treatment and plan. proceed with egd. Date of Service January 31, 2024 History & Physical Bridge Note I have examined the patient, reviewed the History & Physical and in the interval since the performance of the History & Physical I have noted the following ch anges of clinical significance: no changes noted. he has some nausea this morning. no emesis. he reports no bowel movements yet today. - will plan for EGD today.
[2024-01-31] MEDS: INSULIN ASPART PER UNIT CHARGE SC SCH ×2 (11:47→16:46)
--- NOTE | 2024-01-31 12:56 | Hospitalist Progress Note ---
Date of Service January 31, 2024 Assessment & Plan (1) Symptomatic anemia: (2) Acute GI bleeding: (3) Atrial fibrillation: (4) Supratherapeutic INR: (5) CKD (chronic kidney disease) stage 4, GFR 15-29 ml/min: (6) Hypocalcemia: (7) CHF (congestive heart failure): (8) Diabetes type 2, controlled: (9) Hypertension: (10) Pacemaker: Plan 73 year old w/ PMH of GI bleed,TBS s/p pacemaker placement, CKD stage IV, CVA, CHF, bor-plsyper-kpjnutase diabetes, HLD, PAF on Coumadin, history of gastric bypass in 2007, iron deficiency anemia, chronic leg wounds presented 01/28 with worsening SOB x1 week. at ED, he was noted to be volume overloaded with symptomatic anemia and supratherapeutic INR. He reports passing black stool for some time. He has had numerous admissions this year with the most recent being 10/21/23 for similar symptoms including worsening renal function. He has been followed by GI and Nephro as an outpatient with plans to start hemo vs peritoneal dialysis. His creatinine has been worsening over the past few months and it was expected per nephrology that he may require dialysis moving forward. He is being managed for the following: Symptomatic anemia Likely UGI bleed Hgb on arrival 6.4; baseline 8.0. FOBT +ve, complains for dark stool for a while. Recent anemia w/u 01/18: Fe+ 18, TIBC 298, Transferrin 6 Received iv venofer 300mg 01/28. s/p 2 packed RBC. Hb stable around 8.6 Transfuse for Hb < 7 or for symptomatic anemia. Consider lasix w/ prbc transfusion. Currently NPO, c/w PPI. INR 1.3, c/t hold coumadin. hold aspirin. Avoid NSAIDs. GI on board, Plan for EGD today. Supratherapeutic INR Ho AFib on Coumadin INR of 8.4 at admission, received 10 mg iv vit k and PCC x 1 at admission. 01/29 INR of 1.3. continue to hold coumadin, resume at reduced dose(/closely monitor) when cleared per GI. HR currently under control. Progressive CKD stage IV into V Volume overload iso worsening CKD Hypocalcemia and hyperphosphatemia iso progressive CKD CKD is chronic, progressive, being followed by nephro closely. Baseline Cr around 3-4.5; admitting creatinine around 5. Most recent ECHO 06/16/23: EF 55-60%, mild LVH, mild MR, mild-moderate TR. Admitting CXR with interstitial pulmonary edema and bilateral pleural effusion, patient presented with some shortness of breath. Currently on IV Lasix 80 mg twice a day. Plan for insertion of PermCath by vascular on 02/01 Chronic leg wounds: WOCN order placed. Empirically started on doxycycline H/O Gastric bypass: Wpv-jwnjzie-nftouvxmd diabetes mellitus: 2007 Anders-en-Y at [facility]; he came off of insulin after his procedure Does not take any oral agents EGD 2007:- Z-line regular, 45 cm from the incisors. - No gross lesions in esophagus. - Stenosed Anders-en-Y gastrojejunostomy was found. EGD 2023: - Normal esophagus. - Z-line regular. - Gastric bypass with a normal-sized pouch. Gastrojejunal anastomosis characterized by healthy appearing mucosa. - Normal examined jejunum Colonoscopy 2010: - Preparation of the colon was poor. - Stool entire examined colon. - The examination was otherwise normal Colonoscopy 2021: - The examined portion of the ileum was normal. - The entire examined colon is normal on direct and retroflexion views. - No specimens collected HTN: Chronic. Takes metoprolol; continue HLD: Takes atorvastatin; continue Tachybradycardia syndrome, Status post pacemaker: c/w home cardiac meds as able. Disposition: PCP: Jocelyne Desai PA-C CODE STATUS: Full code VTE prophylaxis teds and SCDs for now pt/ot cm to assist w/ dc plan. Dispositionpatient continues to be hospitalized for multiple medical issues including JORGE on CKD, upper GI bleed which requires close monitoring in the inpatient setting Time spent evaluating patient, direct bedside care, chart review, placing orders, interpretation of diagnostic studies, discussion with consultants, patient, and family members, as well as other required patient management activities is 50 minutes Please note the above document was generated using voice recognition software. It may contain grammatical, syntax or spelling errors. Any formal questions or concerns about the content, text or information contained within the body of this dictation should be directly addressed to the provider for clarification Admission and Anticipated Discharge Date Admission Date: January 29, 2024 Subjective Patient seen and examined at bedside. He is lying on the bed comfortably; not in distress. He denies fever, chills, chest pain or shortness of breath. No significant events overnight Review of Systems Review of Systems: All systems reviewed & are unremarkable except as noted in Subjective Physical Exam Physical Exam: General Appearance: Chronically ill-appearing, no apparent distress, on 2L NC O2. Head: normocephalic, Atraumatic Eyes: normal inspection, EOMI,+ pallor Neck: supple, Trachea midline,+ JVD Respiratory/Chest: Decreased breath sounds, basal crackles bilaterally, No accessory muscle use Cardiovascular: S1, S2, No murmur,+ pacemaker Abdomen/GI:Soft, Non tender, Bowel sounds present Extremities/Musculoskeletal:normal inspection, B/L LE Wounds, 2-3+ Edema, R great Toe S/P amputation Neurologic/Psych:AAOX3, grossly no focal neurological deficits Skin: normal color, warm Results & Data Results & Data Vital Signs (Past 12 Hours) Vital Signs Temp Pulse Pulse Resp BP Pulse Ox O2 Del Method 01/31/24 07:26 61 01/31/24 07:10 36.6 C 60 20 124/75 98 Nasal Cannula O2 Flow Rate 01/31/24 07:26 01/31/24 07:10 2
--- NOTE | 2024-01-31 13:43 | GI REPORT ---
[facility] Patient: RANI CHRISTIAN : 1950 Sex at : Male Age: 73 Years Procedure: Upper GI endoscopy Date: 01/31/2024 Attending Physician: Michael Mckeon MD Referring MD: Miah Mcdonough Md; Jocelyne Desai Indications: - Melena - Acute post hemorrhagic anemia Medications: - Monitored Anesthesia Care Complications: - No immediate complications. Estimated Blood Loss: - Estimated blood loss: None. Procedure: - Prior to the procedure, a History and Physical was performed, and patient medications and allergies were reviewed. The patient's tolerance of previous anesthesia was also reviewed. The risks and benefits of the procedure and the sedation options and risks were discussed with the patient. All questions were answered, and informed consent was obtained. Prior Anticoagulants: The patient has taken no anticoagulant or antiplatelet agents. ASA Grade Assessment: IV - A patient with severe systemic disease that is a constant threat to life. After reviewing the risks and benefits, the patient was deemed in satisfactory condition to undergo the procedure. - The EGD scope was introduced through the mouth and advanced to the jejunum. - The upper GI endoscopy was accomplished without difficulty. - The patient tolerated the procedure well. Findings: - Two linear and cratered esophageal ulcers with stigmata of recent bleeding were found in the middle third of the esophagus. The largest lesion was 12 mm in largest dimension. Mid esophageal ulceration deep kissing on both sides of the middle esophagus. Ulcer coated with food material and not bleeding. Likely from reflux. - Evidence of a patent Billroth II gastrojejunostomy was found. The gastrojejunal anastomosis was characterized by erythema. This was traversed. The efferent limb was examined and was characterized by healthy appearing mucosa. Contents were found including food debris. The afferent limb was examined and was characterized by healthy appearing mucosa. Mild irritation of residual stomach and jejunum but NO ULCERATION - The examined jejunum was normal. Impression: - Esophageal ulcers with stigmata of recent bleeding. - Mid esophageal ulceration deep kissing on both sides of the middle esophagus. Ulcer coated with food material and not bleeding. Likely from reflux. - Patent Billroth II gastrojejunostomy was found, characterized by erythema. - Mild irritation of residual stomach and jejunum but NO ULCERATION - Normal examined jejunum. - No specimens collected. - PPI iv bid, hold all anticoagulation, clear or full liquid diet, Keep HOB and patient > 30 degrees at all times. Recommendation: - Resume previous diet. - Continue present medications. - Await pathology results. - Return to primary care physician as previously scheduled. - Patient has a contact number available for emergencies. The signs and symptoms of potential delayed complications were discussed with the patient. Return to normal activities tomorrow. Written discharge instructions were provided to the patient. - PPI IV bid, clear or full liquid diet when awake, Keep HOB > 30 degrees at all times, avoid any anticoag at this time as risk for rebleeding. Procedure Code(s): - 38573, Esophagogastroduodenoscopy, flexible, transoral; diagnostic, including collection of specimen(s) by brushing or washing, when performed (separate procedure) Diagnosis Code(s): - K92.1, Melena (includes Hematochezia) - D62, Acute posthemorrhagic anemia - K22.11, Ulcer of esophagus with bleeding - Z98.0, Intestinal bypass and anastomosis status CPT(R) - 2023 copyright [employer]. All Rights Reserved. The CPT codes, CCI edits and ICD codes generated are intended as suggestions and were generated based on input data. These codes are preliminary and upon gauge and weigh machine operator review may be revised to meet current compliance and payer requirements. The provider is responsible for the final determination of appropriate codes, and modifiers. Michael Mckeon MD This document has been electronically signed. Note Initiated:01/31/2024 Note Completed:01/31/2024 1:42 PM \\[email or web address]\[id number]
--- NOTE | 2024-01-31 14:25 | Anesthesiology Progress Note ---
Date of Service January 31, 2024 Anesthesia Post Procedure Vital Signs Vital Signs: Temp Pulse Pulse Pulse Resp BP BP 01/31/24 14:15 60 22 113/65 01/31/24 14:00 59 L 16 109/66 01/31/24 13:45 60 20 98/58 L 01/31/24 12:54 36.4 C L 63 24 123/68 01/31/24 07:26 61 01/31/24 07:10 36.6 C 60 20 124/75 01/30/24 23:33 36.7 C 69 18 127/79 01/30/24 22:50 61 01/30/24 22:34 01/30/24 19:20 36.4 C L 61 18 122/76 01/30/24 14:56 36.5 C 60 18 119/72 Pulse Ox O2 Del Method O2 Flow Rate 01/31/24 14:15 97 Nasal Cannula 2 01/31/24 14:00 95 Oxymask 2 01/31/24 13:45 95 Oxymask 15 01/31/24 12:54 99 Nasal Cannula 2 01/31/24 07:26 01/31/24 07:10 98 Nasal Cannula 2 01/30/24 23:33 98 Nasal Cannula 01/30/24 22:50 01/30/24 22:34 Nasal Cannula 2 01/30/24 19:20 100 Nasal Cannula 2 01/30/24 14:56 100 Nasal Cannula 2 Pain Intensity Left Willis: Pain Intensity: 6 Transfer of Care Handoff Completed per policy Notes Mental Status: alert / awake / arousable and participated in evaluation Patient Amnestic to Procedure: Yes Nausea / Vomiting: adequately controlled Pain: adequately controlled Airway Patency, RR, SpO2: stable & adequate BP & HR: stable & adequate Hydration State: stable & adequate Anesthetic Complications: no major complications apparent
[2024-01-31] MEDS: ePHEDrine sulfate 50 MG/ML AMP ONE (14:34)
[2024-01-31] MEDS: LIDOCAINE 2% 2 ML VIAL/AMP(20MG/ML) INFIL ONE (14:34)
[2024-01-31] MEDS: PROPOFOL IV EMULSION 10 MG/ML 20 ML VIAL IV ONE (14:34)
--- NOTE | 2024-01-31 15:06 | Consultation ---
Date of Consultation January 31, 2024 Assessment & Plan (1) End stage renal disease: Pt with worsening renal fxn, now requiring HD per nephrology. Planning on permcath insertion in OR on MONDAY, 02/01. Procedure discussed with pt, he is agreeable. WIll review his vein mapping US in office and discuss options with pt during this admission. History of Present Illness Reason for Consultation: ESRD Attending Physician: Miah Mcdonough MD History of Present Illness 73 yo m with hx of PAD, CKD, CHF, NSTEMI, anemia, venous ulcerations, DMII, spinal stenosis, a fib, dyslipidemia, HTN, neuropathy, sleep apnea, pacemaker d/t tachy geronimo syndrome, seen in consultation today for insertion of permcath for HD initiation. Pt states he had an US performed of his arms to eval for AVF Creation and was scheduled in Dr Cutler's office tomorrow to discuss options, however, ended up coming to [facility] and being admitted for anemia and Gi bleed. Pt admits fatigue and states the small wounds on his legs are healing. Denies SEXTON, fever, chest pain, SOB, abd pain, N/V, rest pain, claudication, other complaints. Allergies Allergy/AdvReac Type Severity Reaction Status Date / Time No Known Allergies Allergy Verified 01/31/24 12:54 Home Medications Medication Instructions Recorded Confirmed Type pediatric [id number] 1 tab PO PM ##0 04/11/13 01/29/24 History (Flintstones Complete (iron) chewable tablet) atorvastatin 40 mg tablet 40 mg PO PM #0 tabs 01/08/17 01/29/24 History cholecalciferol (vitamin D3) 25 2,000 unit PO PM 10/18/17 01/29/24 History mcg (1,000 unit) capsule (Vitamin D3) cyanocobalamin (vitamin B-12) 1,000 mcg PO PM 05/06/19 01/29/24 History 1,000 mcg tablet tamsulosin 0.4 mg capsule 0.4 mg PO PM 05/06/19 01/29/24 History magnesium oxide 400 mg PO QAM 09/26/19 01/29/24 History acetaminophen 500 mg tablet 1,000 mg PO Q6H PRN Pain 12/17/20 01/29/24 History aspirin 81 mg tablet 81 mg PO DAILY 12/21/20 01/29/24 History warfarin 3 mg tablet See Rx Instructions .Route .COMPLEX 10/07/22 01/29/24 History metoprolol succinate 25 mg 25 mg PO QAM #30 tabs 10/16/22 01/29/24 Rx tablet,extended release 24 hr L.acidop,casei,lactis,rham-B.lact,scot 1 cap PO DAILY #30 caps 08/07/23 01/29/24 Rx 625 mg (10 billion cell) capsule (Advanced Probiotic) cyclobenzaprine 10 mg tablet 10 mg PO Q8H PRN Muscle Spasms 10/21/23 01/29/24 History oxycodone 5 mg tablet 5 mg PO Q6H PRN Pain 10/21/23 01/29/24 History potassium chloride 20 mEq 20 meq PO UD #30 tabs 10/24/23 01/29/24 Rx tablet,extended release(part/cryst) torsemide 20 mg tablet 20 mg PO UD #30 tabs 10/24/23 01/29/24 Rx Patient History Medical History MRSA infection Hyperlipemia Essential hypertension 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 kidney disease Degenerative cervical spinal stenosis Degenerative lumbar spinal stenosis Proliferative diabetic retinopathy Venous insufficiency of both lower extremities Erectile dysfunction 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 of 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 Hyperparathyroidism, secondary renal Esophageal obstruction Complex sleep apnea syndrome Vitamin B12 deficiency Persistent proteinuria Paroxysmal SVT (supraventricular tachycardia) Myocardial Infarction 2017 > medically managed CHF (congestive heart failure) Acute renal failure superimposed on stage 3 chronic kidney disease 08/2020 hospitalization, UTI and osteomyelitis, necrotizing fasciitis Depression Sepsis 2013 Surgical History History of amputation of lesser toe of right foot Hx of angioplasty Amputation toe Right great toe amputation (08/12/20): MAC at [facility] History of esophagogastroduodenoscopy (EGD) History of vascular surgery Left popliteal, 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) Right great toe I&D, revision amputation (08/21/20): MAC at [facility] History of hand surgery Tendon transfer Gastric bypass status for obesity Family History Brother Diabetes Mother Diabetes Father Diabetes Other Cancer Hypertension Social History Smoking Status: Former smoker Tobacco Type: Cigarettes Cigarettes Per Day: quit a long time ago; Second Hand Exposure: No; Do You Dip or Chew Tobacco: No; Tobacco Cessation Education Requested by Patient: No Hx Alcohol Use: Yes Alcohol type: beer and wine Alcohol Intake Frequency: Monthly or Less Hx Substance Use: No Preferred Language: Cuban 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 Ability: Effective Visual Impairment: No Limitations Hearing Ability: Normal Bull Riveter Required: No Beliefs That Will Affect Care: Orthodox marital status: Current Living Situation: Alone Current Living Situation Comment: Daughter lives upstairs. current occupational status: retired How many Children do You have: 2 Other Information That Helps Us Care for You: No Feels Safe at Home: Yes Safety Concerns: Feels Safe At This Time Diet Comment: Educated to increase protein, vitamin c, d and zinc Assistive Devices: Walker Review of Systems Review of Systems: All systems reviewed & are unremarkable except as noted in HPI & below Physical Exam Constitutional: WD/WN, vitals as above cooperative and comfortable; not in distress Neck: trachea midline Respiratory: normal respiratory effort, lungs clear to auscultation Auscultation: + diminished lung sounds Cardiovascular: Rate/Rhythm: + irregularly irregular Vessels: + abnormal peripheral pulses Extremities: normal capillary refill and + edema Gastrointestinal (Abdomen): Inspection/Auscultation: abdomen normal to inspection and normal bowel sounds Percussion/Palpation: abdomen soft; abdomen nontender Musculoskeletal: no cyanosis or clubbing, extremities motor strength 5/5 Skin: no rashes, warm and dry + ulcer (dressings over area) Neurologic: moves all extremities and awake; no focal motor deficits and not confused Psychiatric: A+Ox3, euthymic affect Results & Data Vital Signs (Past 12 Hours) Vital Signs Temp Pulse Pulse Pulse Resp BP Pulse Ox 01/31/24 14:15 60 22 113/65 97 01/31/24 14:00 59 L 16 109/66 95 01/31/24 13:45 60 20 98/58 L 95 01/31/24 12:54 36.4 C L 63 24 123/68 99 01/31/24 07:26 61 01/31/24 07:10 36.6 C 60 20 124/75 98 O2 Del Method O2 Flow Rate 01/31/24 14:15 Nasal Cannula 2 01/31/24 14:00 Oxymask 2 01/31/24 13:45 Oxymask 15 01/31/24 12:54 Nasal Cannula 2 01/31/24 07:26 01/31/24 07:10 Nasal Cannula 2
--- NOTE | 2024-01-31 17:49 | Nephrology Progress Note ---
Date of Service January 31, 2024 Assessment & Plan (1) End stage renal disease: Plan: longstanding CKD 5/advanced CKD 4 w/ recurrent JORGE progressing now to ESRD to the point where we will soon need to start dialysis, likely this admission though not emergently. e/o ESRD--Severe Anemia, Pulm edema, Hypocalcemia. Overall health status is very poor less likely to tolerate severe renal failure. pt aware of need for dialysis coming up; he has had modality class > interested in PD; has not yet had home visit/met w/ surgeon >> some concerns about how he'll do on PD from OP dialysis team; however for now suggest we move forward in a way that makes it easiest for him to pursue PD per his choices. no dialysis access currently -consulted Dr Cutler for TDC placement likely Monday -temp cath if HD needed in the meantime -refer to [facility] for dialysis after d/c from here/from rehab; I have spoken w/ [facility]; she is aware that referral to come soon -continue lasix 80 iv bid; increase if needed -K appropriate currently w/o suppls Care coordinated in person w/ Dr Mcdonough and by phone w/ Dr Cutler; we are in agreement. (2) CHF (congestive heart failure): Plan: has Pulm edema and this is driven mainly by progression of CKD 5 to ESRD. lasix 80 iv bid to continue (3) Anemia: Plan: has severe anemia of CKD at baseline with h/o GI bleed and now likely GI bleed and High INR. Got PRBC x 2 . Possible EGD today s/p procrit 46838 unit 01/29 transferrin sat 6% as OP 01/18 >> needs Iron IV; got IV iron 01/22 as OP and on standing retacrit OP as well >>ordered venofer 200 mg IV x 4 doses daily Admission and Anticipated Discharge Date Admission Date: January 29, 2024 Subjective seen and evaluated on AM rounds; no c/o; denies orthopnea or cough; mild sob. no n/v; ongoing edema Review of Systems 2 Review of Systems: All systems reviewed & are unremarkable except as noted in Subjective Physical Exam 2 Constitutional: well developed, + frail appearing and cooperative; no acute distress Eyes: EOM intact bilaterally ENMT: Mouth: + dry oral mucous membranes Neck: no nuchal rigidity Respiratory: normal respiratory effort Auscultation: + diminished lung sounds and + crackles Cardiovascular: Rate/Rhythm: regular rate and regular rhythm Extremities: + edema Gastrointestinal (Abdomen): Inspection/Auscultation: normal bowel sounds P ercussion/Palpation: abdomen soft; abdomen nontender Musculoskeletal: Extremities: strength 5/5 throughout Skin: no rashes, warm and dry Neurologic: wolf, fluent speech, no tremor Psychiatric: Orientation: alert and oriented x 3 Results & Data Vital Signs (Past 12 Hours) Vital Signs Temp Pulse Pulse Pulse Resp BP Pulse Ox 01/31/24 15:56 60 01/31/24 14:58 36.0 C L 60 16 124/75 97 01/31/24 14:15 60 22 113/65 97 01/31/24 14:00 59 L 16 109/66 95 01/31/24 13:45 60 20 98/58 L 95 01/31/24 12:54 36.4 C L 63 24 123/68 99 01/31/24 07:26 61 01/31/24 07:10 36.6 C 60 20 124/75 98 O2 Del Method O2 Flow Rate 01/31/24 15:56 01/31/24 14:58 Room Air 01/31/24 14:15 Nasal Cannula 2 01/31/24 14:00 Oxymask 2 01/31/24 13:45 Oxymask 15 01/31/24 12:54 Nasal Cannula 2 01/31/24 07:26 01/31/24 07:10 Nasal Cannula 2 Laboratory Results 01/31/24 06:40 01/31/24 06:40 (2) CHF (congestive heart failure) Heart failure chronicity: acute Heart failure type: unspecified Qualified Code(s): I50.9 - Heart failure, unspecified (3) Anemia Anemia type: unspecified type Qualified Code(s): D64.9 - Anemia, unspecified
[2024-01-31] MEDS ORDERED: IRON SUCROSE 300 MG in SODIUM CHLORIDE 0.9% 250 ML IV ONE (17:52)
[2024-01-31] MEDS: IRON SUCROSE 200 MG in SODIUM CHLORIDE 0.9% 100 ML IV SCH (18:28)
[2024-01-31] MEDS: PANTOprazole 40 MG/10 ML SYR IV SCH (20:37)
[2024-02-01] MEDS: ALUMINUM/MAGNESIUM/SIMETH (MAALOX MAX) 30 ML UDC PO STA (04:06)
[2024-02-01] MEDS: FAMOTIDINE 20MG IV PUSH 20 MG/5 ML SYR IV STA (05:00)
--- NOTE | 2024-02-01 06:08 | Electrocardiogram Report ---
Test Reason : Blood Pressure : */* mmHG Vent. Rate : 75 BPM Atrial Rate : 75 BPM P-R Int : * ms QRS Dur : 156 ms QT Int : 524 ms P-R-T Axes : * -39 109 degrees QTcB Int : 585 ms Ventricular-paced rhythm Abnormal ECG When compared with ECG of 21-Oct-2023 16:51, Vent. rate has increased by 11 bpm Confirmed by Danilo Watson ([id number]) on 02/01/2024 6:07:31 AM Referred By: REFERRED SELF Confirmed By: Danilo Watson
[2024-02-01 07:02] LABS: Eosinophils # (auto) 0.12 K/uL (0.00-0.50); Hemoglobin 8.1 g/dl (14.0-18.0); Immature Granulocytes # (auto) 0.03 K/uL (0.01-0.20); Immature Granulocytes % (auto) 0.5 %; Lymphocytes # (auto) 0.77 K/uL (1.20-3.40); Lymphocytes % (auto) 12.9 %; Mean Corpuscular Hgb Conc 31.2 g/dL (32.0-36.0); Mean Platelet Volume 10.7 fL (9.4-12.4); Monocytes # (auto) 0.52 K/uL (0.11-0.59); Monocytes % (auto) 8.7 %; Neutrophils # (auto) 4.55 K/uL (1.40-6.50); Neutrophils % (auto) 75.9 %; Platelet Count 159 K/uL (130-400); RDW Coefficient of Variation 19.8 % (11.5-14.5); RDW Standard Deviation 60.1 fL (36.4-46.3); Red Blood Count 2.89 M/uL (4.70-6.10); White Blood Count 5.99 K/ul (4.8-10.8)
[2024-02-01 07:27] LABS: BUN Creatinine Ratio 20.2 (10-20); Calcium 7.5 mg/dl (8.6-10.3); Creatinine Clr Calc Pharmacy 14.7 ml/min; Potassium 3.5 mmol/L (3.5-5.1)
[2024-02-01] MEDS: oxyCODONE HCL IR 5 MG TAB (IMMEDIATE RELEASE) PO PRN (07:51)
--- NOTE | 2024-02-01 08:47 | Hospitalist Progress Note ---
Date of Service February 01, 2024 Assessment & Plan (1) Symptomatic anemia: (2) Acute GI bleeding: (3) Atrial fibrillation: (4) Supratherapeutic INR: (5) CKD (chronic kidney disease) stage 4, GFR 15-29 ml/min: (6) Hypocalcemia: (7) CHF (congestive heart failure): (8) Diabetes type 2, controlled: (9) Hypertension: (10) Pacemaker: Plan 73 year old w/ PMH of GI bleed,TBS s/p pacemaker placement, CKD stage IV, CVA, CHF, [id number] diabetes, HLD, PAF on Coumadin, history of gastric bypass in 2007, iron deficiency anemia, chronic leg wounds presented 01/28 with worsening SOB x1 week. at ED, he was noted to be volume overloaded with symptomatic anemia and supratherapeutic INR. He reports passing black stool for some time. He has had numerous admissions this year with the most recent being 10/21/23 for similar symptoms including worsening renal function. He has been followed by GI and Nephro as an outpatient with plans to start hemo vs peritoneal dialysis. His creatinine has been worsening over the past few months and it was expected per nephrology that he may require dialysis moving forward. He is being managed for the following: Symptomatic anemia Upper GI bleed Hgb on arrival 6.4; baseline 8.0. FOBT +ve, complains for dark stool for a while. Recent anemia w/u 01/18: Fe+ 18, TIBC 298, Transferrin 6 Received iv venofer 300mg 01/28. s/p 2 packed RBC. Hb stable around 8.6 Patient underwent EGD on linear and cratered esophageal ulcer with stigmata of recent bleeding were found in middle third of the esophagus. Mild esophageal ulceration deep kissing on both side of the middle esophagus. Mild irritation of residual stomach and jejunum with no ulceration. Transfuse for Hb < 7 or for symptomatic anemia. Currently NPO, c/w PPI. INR 1.3, c/t hold coumadin. hold aspirin. Will need GIs clearance prior to starting Coumadin. Avoid NSAIDs. Supratherapeutic INR Ho AFib on Coumadin INR of 8.4 at admission, received 10 mg iv vit k and PCC x 1 at admission. 01/29 INR of 1.3. continue to hold coumadin, resume at reduced dose(/closely monitor) when cleared per GI. HR currently under control. Progressive CKD stage IV into V Volume overload iso worsening CKD Hypocalcemia and hyperphosphatemia iso progressive CKD CKD is chronic, progressive, being followed by nephro closely. Baseline Cr around 3-4.5; admitting creatinine around 5. Most recent ECHO 06/16/23: EF 55-60%, mild LVH, mild MR, mild-moderate TR. Admitting CXR with interstitial pulmonary edema and bilateral pleural effusion, patient presented with some shortness of breath. Currently on IV Lasix 80 mg twice a day. Plan for insertion of PermCath by vascular on 02/01 Chronic leg wounds: WOCN order placed. Empirically started on doxycycline H/O Gastric bypass: [id number] diabetes mellitus: 2007 Anders-en-Y at [facility]; he came off of insulin after his procedure Does not take any oral agents Monitor blood glucose HTN: Chronic. Takes metoprolol; continue HLD: Takes atorvastatin; continue Tachybradycardia syndrome, Status post pacemaker: c/w home cardiac meds as able. Disposition: PCP: Jocelyne Desai PA-C CODE STATUS: Full code VTE prophylaxis teds and SCDs for now pt/ot cm to assist w/ dc plan. Dispositionpatient continues to be hospitalized for multiple medical issues including JORGE on CKD, upper GI bleed which requires close monitoring in the inpatient setting. Plan for dialysis catheter tomorrow Time spent evaluating patient, direct bedside care, chart review, placing orders, interpretation of diagnostic studies, discussion with consultants, patient, and family members, as well as other required patient management activities is 50 minutes Please note the above document was generated using voice recognition software. It may contain grammatical, syntax or spelling errors. Any formal questions or concerns about the content, text or information contained within the body of this dictation should be directly addressed to the provider for clarification Admission and Anticipated Discharge Date Admission Date: January 29, 2024 Subjective Patient seen and examined at bedside. He is comfortable; not in distress Vital signs are stable and he is saturating well on room air He continues to report passage of dark stool. Review of Systems Review of Systems: All systems reviewed & are unremarkable except as noted in Subjective Physical Exam Physical Exam: General Appearance: no apparent distress, Head: normocephalic, Atraumatic Eyes: normal inspection, EOMI,+ pallor Neck: supple, Trachea midline,+ JVD Respiratory/Chest: Decreased breath sounds, basal crackles bilaterally, No accessory muscle use Cardiovascular: S1, S2, No murmur,+ pacemaker Abdomen/GI:Soft, Non tender, Bowel sounds present Extremities/Musculoskeletal:normal inspection, B/L LE Wounds, 2+ Edema, R great Toe S/P amputation Neurologic/Psych:AAOX3, grossly no focal neurological deficits Skin: normal color, warm Results & Data Results & Data Vital Signs (Past 12 Hours) Vital Signs Temp Pulse Pulse Resp BP BP Pulse Ox 02/01/24 07:56 65 16 112/68 98 02/01/24 03:23 36.3 C L 60 18 113/68 97 02/01/24 01:00 61 01/31/24 23:13 36.4 C L 62 18 109/67 96 01/31/24 20:50 O2 Del Method O2 Flow Rate 02/01/24 07:56 Room Air 02/01/24 03:23 Room Air 02/01/24 01:00 01/31/24 23:13 Room Air 01/31/24 20:50 Nasal Cannula 2
--- NOTE | 2024-02-01 09:47 | Gastroenterology Progress Note ---
Date of Service February 01, 2024 Assessment & Plan (1) Esophageal ulcer: Plan: patient still with some darker stools but this is likely residual from prior bleeding. I advised patient that this should clear in the coming days. - continue with protonix 40mg IV BID - continue with clear or full liquid diet - Keep HOB and patient > 30 degrees at all times. - continue to follow hgb/hct. transfuse as needed. Admission and Anticipated Discharge Date Admission Date: January 29, 2024 Supervising Physician Co-Signing Physician Notes I personally saw and examined the patient. I have reviewed the chart and agree with the documentation provided by the CNA including discussion about the assessment, treatment and plan. Briefly, hemoglobin is at 8.1. He has some dark stools but no obvious melena today suspect some of this is old blood. He has kissing esophageal ulcers in the mid esophagus with stigmata of bleeding on endoscopy yesterday. Continue PPI. Difficult place to do cautery or place a clip. Supportive care for now. Subjective patient has had some further darker stools since yesterday, but he tells me not as many as previous. he had some heartburn last evening after scope but this has since resolved. he had some nausea but no vomiting. EGD 01/30 - Esophageal ulcers with stigmata of recent bleeding. - Mid esophageal ulceration deep kissing on both sides of the middle esophagus. Ulcer coated with food material and not bleeding. Likely from reflux. - Patent Billroth II gastrojejunostomy was found, characterized by erythema. - Mild irritation of residual stomach and jejunum but NO ULCERATION - Normal examined jejunum. - No specimens collected. Review of Systems Review of Systems: All systems reviewed & are unremarkable except as noted in HPI & below Physical Exam Constitutional: WD/WN, vitals as above Respiratory: normal respiratory effort, lungs clear to auscultation Cardiovascular: Rate/Rhythm: regular rate and regular rhythm Gastrointestinal (Abdomen): normal bowel sounds, soft, nontender, no hepatosplenomegaly Psychiatric: Orientation: alert and oriented x 3 Affect: euthymic affect Results & Data Results & Data Vital Signs (Past 12 Hours) Vital Signs Temp Pulse Pulse Resp BP BP Pulse Ox 02/01/24 07:56 65 16 112/68 98 02/01/24 07:00 60 02/01/24 03:23 97.3 F L 60 18 113/68 97 02/01/24 01:00 61 01/31/24 23:13 97.5 F L 62 18 109/67 96 O2 Del Method 02/01/24 07:56 Room Air 02/01/24 07:00 02/01/24 03:23 Room Air 02/01/24 01:00 01/31/24 23:13 Room Air Coding Level of Care Code 47182 SUB INP/OBS CARE 03/09MIN Diagnoses Esophageal ulcer K22.10
--- NOTE | 2024-02-01 17:07 | Nephrology Progress Note ---
Date of Service February 01, 2024 Assessment & Plan (1) End stage renal disease: Plan: longstanding CKD 5/advanced CKD 4 w/ recurrent JORGE progressing now to ESRD to the point where we will soon need to start dialysis, likely this admission though not emergently. e/o ESRD--Severe Anemia, Pulm edema, Hypocalcemia. Overall health status is very poor less likely to tolerate severe renal failure. pt aware of need for dialysis coming up; he has had modality class > interested in PD; has not yet had home visit/met w/ surgeon >> some concerns about how he'll do on PD from OP dialysis team; however for now suggest we move forward in a way that makes it easiest for him to pursue PD per his choices. no dialysis access currently -Dr Cutler will place TDC on Monday and patient will have 1st dialysis session for 2 hours. -refer [facility] for dialysis after d/c from here -continue lasix 80 iv bid -K appropriate currently w/o suppls (2) CHF (congestive heart failure): Plan: has Pulm edema and this is driven mainly by progression of CKD 5 to ESRD. lasix 80 iv bid to continue (3) Anemia: Plan: has severe anemia of CKD at baseline with h/o GI bleed and now likely GI bleed and High INR. Got PRBC x 2 . Possible EGD today s/p procrit 85848 unit 01/29 transferrin sat 6% as OP 01/18 >> needs Iron IV; got IV iron 01/22 as OP and on standing retacrit OP as well >> venofer 200 mg IV x 4 doses daily Admission and Anticipated Discharge Date Admission Date: January 29, 2024 Subjective seen for CKD 5. No shortness of breath but he has leg swelling. Review of Systems 2 Review of Systems: All other systems were reviewed and negative except as noted in HPI Physical Exam 2 Physical Exam: General exam: Appears comfortable, no acute distress HEENT: Pupils are equal and reactive to light Neck: No JVD, neck is supple trachea is midline Respiratory system: Clear breath sounds bilaterally. Gastrointestinal: Abdomen is soft, non distended, non tender, bowel sounds are present CVS: Regular rate and rhythm. No murmurs, rubs or gallops Musculoskeletal: No joint or muscle tenderness Extremities: Non tender, 1+ edema, peripheral pulses are present Neuro: Oriented, no tremors, no focal neurological deficits Skin: No rashes Results & Data Vital Signs (Past 12 Hours) Vital Signs Temp Pulse Pulse Resp BP Pulse Ox O2 Del Method 02/01/24 15:10 36.3 C L 66 18 100/59 L 98 Room Air 02/01/24 13:00 66 02/01/24 10:48 36.6 C 76 18 121/74 98 Room Air 02/01/24 09:30 Room Air 02/01/24 07:56 65 16 112/68 98 Room Air 02/01/24 07:00 60 Laboratory Results 02/01/24 06:42 02/01/24 06:42 WBC 5.99 RBC 2.89 L MCV 90.0 MCH 28.0 MCHC 31.2 L RDW Std Deviation 60.1 H RDW Coeff of Jason 19.8 H Plt Count 159 MPV 10.7 (2) CHF (congestive heart failure) Heart failure chronicity: acute Heart failure type: unspecified Qualified Code(s): I50.9 - Heart failure, unspecified (3) Anemia Anemia type: unspecified type Qualified Code(s): D64.9 - Anemia, unspecified
[2024-02-01] MEDS: MICONAZOLE NITRATE POWDER 85 GM EXT PRN (18:38)
[2024-02-02 06:21] LABS: Basophils # (auto) 0.01 K/uL (0.00-0.20); Basophils % (auto) 0.2 %; Eosinophils # (auto) 0.24 K/uL (0.00-0.50); Hemoglobin 7.9 g/dl (14.0-18.0); Immature Granulocytes # (auto) 0.03 K/uL (0.01-0.20); Immature Granulocytes % (auto) 0.5 %; Lymphocytes % (auto) 13.2 %; Mean Corpuscular Hemoglobin 28.7 pg (25.0-34.0); Mean Corpuscular Hgb Conc 31.6 g/dL (32.0-36.0); Mean Corpuscular Volume 90.9 fL (80.0-100.0); Monocytes # (auto) 0.54 K/uL (0.11-0.59); Monocytes % (auto) 8.9 %; Neutrophils # (auto) 4.42 K/uL (1.40-6.50); Neutrophils % (auto) 73.2 %; Platelet Count 130 K/uL (130-400); RDW Coefficient of Variation 20.4 % (11.5-14.5); RDW Standard Deviation 63.9 fL (36.4-46.3); Red Blood Count 2.75 M/uL (4.70-6.10); White Blood Count 6.04 K/ul (4.8-10.8)
[2024-02-02 06:48] LABS: BUN Creatinine Ratio 19.2 (10-20); Calcium 7.5 mg/dl (8.6-10.3); Creatinine Clr Calc Pharmacy 14.2 ml/min; Potassium 3.7 mmol/L (3.5-5.1)
[2024-02-02 06:49] LABS: Acanthocytes 2+; Anisocytosis Present; Polychromasia 1+; Tear Drop Cells 1+
--- NOTE | 2024-02-02 08:32 | History & Physical Bridge Note ---
Date of Service February 02, 2024 History & Physical Bridge Note Patient for permcath insertion today. I have discussed the risks options and benefits of the procedure with the patient. The patient understands the risks options and benefits and agrees to the procedure. I have examined the patient, reviewed the History & Physical and in the interval since the performance of the History & Physical I have noted the following changes of clinical significance: no changes noted
[2024-02-02] MEDS: ceFAZolin 2000MG 2,000 MG/15 ML SYR IV ONE (08:44)
--- NOTE | 2024-02-02 09:07 | Pre Anesthesia Assessment ---
Date of Service February 02, 2024 Pre Sedation Assessment Vital Signs Temp Pulse Pulse Resp BP Pulse Ox O2 Del Method 02/02/24 09:03 60 16 112/66 100 Oxymask 02/02/24 08:09 37 C 75 20 110/58 L 96 Room Air 02/02/24 07:20 36.4 C L 67 18 102/61 95 Room Air 02/02/24 07:09 60 02/02/24 03:00 36.5 C 62 18 104/60 95 Room Air 02/01/24 22:27 36.3 C L 60 16 110/64 100 Room Air 02/01/24 19:02 36.5 C 62 18 117/69 99 Room Air 02/01/24 17:34 125/73 02/01/24 15:10 36.3 C L 66 18 100/59 L 98 Room Air 02/01/24 13:00 66 02/01/24 10:48 36.6 C 76 18 121/74 98 Room Air 02/01/24 09:30 Room Air O2 Flow Rate 02/02/24 09:03 4 02/02/24 08:09 02/02/24 07:20 02/02/24 07:09 02/02/24 03:00 02/01/24 22:27 02/01/24 19:02 02/01/24 17:34 02/01/24 15:10 02/01/24 13:00 02/01/24 10:48 02/01/24 09:30 Cardiovascular RRR, no murmur, no edema Respiratory normal respiratory effort, lungs clear to auscultation Pre-Sedation Airway Assessment Smoking Status: Former smoker Hx Sleep Apnea: No Hx Difficult Intubation: No Short, Thick Neck: Yes Thyromental Distance: > or= 3.5 Finger Breadths Oral Cavity: + WNL Mallampati Class: III ASA: ASA4 NPO Status Date of Last Intake of Fluids: 02/01/24 Time of Last Intake of Fluids: 23:30 Date of Last Intake of Solid Food: 01/31/24 Procedure Planning Contraindications for Sedation: none Current Medications Reviewed: Yes Notes The planned sedation has been discussed with the patient. Informed Consent was obtained. I have identified the patient, determined the appropriateness of sedation and have assessed the patient immediately prior to the procedure. All medicine(s) and interventions are by my order.
[2024-02-02] MEDS: MIDAZOLAM HCL 1 MG/ML 2ML VIAL ONE (09:10)
[2024-02-02] MEDS: fentaNYL citrate PF 100 MCG/2 ML VIAL ONE (09:13)
--- NOTE | 2024-02-02 09:23 | Hospitalist Progress Note ---
Date of Service February 02, 2024 Assessment & Plan (1) Symptomatic anemia: (2) Acute GI bleeding: (3) Atrial fibrillation: (4) Supratherapeutic INR: (5) CKD (chronic kidney disease) stage 4, GFR 15-29 ml/min: (6) Hypocalcemia: (7) CHF (congestive heart failure): (8) Diabetes type 2, controlled: (9) Hypertension: (10) Pacemaker: Plan 73 year old w/ PMH of GI bleed,TBS s/p pacemaker placement, CKD stage IV, CVA, CHF, [id number] diabetes, HLD, PAF on Coumadin, history of gastric bypass in 2007, iron deficiency anemia, chronic leg wounds presented 01/28 with worsening SOB x1 week. at ED, he was noted to be volume overloaded with symptomatic anemia and supratherapeutic INR. He reports passing black stool for some time. He is being managed for the following: Symptomatic anemia Upper GI bleed Hgb on arrival 6.4; baseline 8.0. FOBT +ve, complains for dark stool for a while. Recent anemia w/u 01/18: Fe+ 18, TIBC 298, Transferrin 6 Received iv venofer 300mg 01/28. s/p 2 packed RBC. Hb stable around 8.6 Patient underwent EGD on linear and cratered esophageal ulcer with stigmata of recent bleeding were found in middle third of the esophagus. Mild esophageal ulceration deep kissing on both side of the middle esophagus. Mild irritation of residual stomach and jejunum with no ulceration. Transfuse for Hb < 7 or for symptomatic anemia. Currently NPO, c/w PPI. INR 1.3, c/t hold coumadin. hold aspirin. Discussed with GI on 02/01; recommended to hold anticoagulation for another 48 hours. Avoid NSAIDs. Supratherapeutic INR Ho AFib on Coumadin INR of 8.4 at admission, received 10 mg iv vit k and PCC x 1 at admission. 01/29 INR of 1.3. continue to hold coumadin, resume at reduced dose(/closely monitor) when cleared per GI. HR currently under control. Progressive CKD stage IV into V Volume overload iso worsening CKD Hypocalcemia and hyperphosphatemia iso progressive CKD CKD is chronic, progressive, being followed by nephro closely. Baseline Cr around 3-4.5; admitting creatinine around 5. Most recent ECHO 06/16/23: EF 55-60%, mild LVH, mild MR, mild-moderate TR. Admitting CXR with interstitial pulmonary edema and bilateral pleural effusion, patient presented with some shortness of breath. Currently on IV Lasix 80 mg twice a day. Status post insertion of permacath in right internal jugular vein on 02/02/2024. underwent first session of dialysis on 02/02/2024. Chronic leg wounds: WOCN order placed. Empirically started on doxycycline H/O Gastric bypass: [id number] diabetes mellitus: 2007 Anders-en-Y at [facility] [place]; he came off of insulin after his procedure Does not take any oral agents Monitor blood glucose HTN: Chronic. Takes metoprolol; continue HLD: Takes atorvastatin; continue Tachybradycardia syndrome, Status post pacemaker: c/w home cardiac meds as able. Disposition: PCP: Jocelyne Desai PA-C CODE STATUS: Full code VTE prophylaxis teds and SCDs for now pt/ot cm to assist w/ dc plan. Dispositionpatient continues to be hospitalized for multiple medical issues including JORGE on CKD, upper GI bleed which requires close monitoring in the inpatient setting. close monitor inpatient for recurrent of bleeding. Time spent evaluating patient, direct bedside care, chart review, placing orders, interpretation of diagnostic studies, discussion with consultants, patient, and family members, as well as other required patient management activities is 50 minutes Please note the above document was generated using voice recognition software. It may contain grammatical, syntax or spelling errors. Any formal questions or concerns about the content, text or information contained within the body of this dictation should be directly addressed to the provider for clarification Admission and Anticipated Discharge Date Admission Date: January 29, 2024 Subjective Patient seen and examined at bedside. Comfortable; not in distress. Denies fever, chills, chest pain, shortness of breath, abdominal pain or urinary symptoms. No significant overnight events Review of Systems Review of Systems: All systems reviewed & are unremarkable except as noted in Subjective Physical Exam Physical Exam: General Appearance: no apparent distress, Head: normocephalic, Atraumatic Eyes: normal inspection, EOMI,+ pallor Neck: supple, Trachea midline, Respiratory/Chest: b/l vesicular breath sounds Cardiovascular: S1, S2, No murmur,+ pacemaker Abdomen/GI:Soft, Non tender, Bowel sounds present Extremities/Musculoskeletal:normal inspection, B/L LE Wounds, trace Edema, R great Toe S/P amputation Neurologic/Psych:AAOX3, grossly no focal neurological deficits Skin: normal color, warm Results & Data Results & Data Vital Signs (Past 12 Hours) Vital Signs Temp Pulse Pulse Resp BP Pulse Ox O2 Del Method 02/02/24 09:15 61 16 115/66 100 Oxymask 02/02/24 09:10 60 16 118/67 100 Oxymask 02/02/24 09:03 60 16 112/66 100 Oxymask 02/02/24 08:09 37 C 75 20 110/58 L 96 Room Air 02/02/24 07:20 36.4 C L 67 18 102/61 95 Room Air 02/02/24 07:09 60 02/02/24 03:00 36.5 C 62 18 104/60 95 Room Air 02/01/24 22:27 36.3 C L 60 16 110/64 100 Room Air O2 Flow Rate 02/02/24 09:15 4 02/02/24 09:10 4 02/02/24 09:03 4 02/02/24 08:09 02/02/24 07:20 02/02/24 07:09 02/02/24 03:00 02/01/24 22:27
[2024-02-02] MEDS: LIDOCAINE 1% LOCAL 20 ML VIAL ONE (09:34)
--- NOTE | 2024-02-02 09:37 | Post Anesthesia Assessment ---
Date of Service February 02, 2024 Post Sedation Assessment Vital Signs Temp Pulse Pulse Resp BP Pulse Ox O2 Del Method 02/02/24 09:35 60 16 113/64 100 Oxymask 02/02/24 09:30 60 16 106/61 100 Oxymask 02/02/24 09:25 62 16 113/65 100 Oxymask 02/02/24 09:20 61 16 113/64 100 Oxymask 02/02/24 09:15 61 16 115/66 100 Oxymask 02/02/24 09:10 60 16 118/67 100 Oxymask 02/02/24 09:03 60 16 112/66 100 Oxymask 02/02/24 08:09 37 C 75 20 110/58 L 96 Room Air 02/02/24 07:20 36.4 C L 67 18 102/61 95 Room Air 02/02/24 07:09 60 02/02/24 03:00 36.5 C 62 18 104/60 95 Room Air 02/01/24 22:27 36.3 C L 60 16 110/64 100 Room Air 02/01/24 19:02 36.5 C 62 18 117/69 99 Room Air 02/01/24 17:34 125/73 02/01/24 15:10 36.3 C L 66 18 100/59 L 98 Room Air 02/01/24 13:00 66 02/01/24 10:48 36.6 C 76 18 121/74 98 Room Air O2 Flow Rate 02/02/24 09:35 4 02/02/24 09:30 4 02/02/24 09:25 4 02/02/24 09:20 4 02/02/24 09:15 4 02/02/24 09:10 4 02/02/24 09:03 4 02/02/24 08:09 02/02/24 07:20 02/02/24 07:09 02/02/24 03:00 02/01/24 22:27 02/01/24 19:02 02/01/24 17:34 02/01/24 15:10 02/01/24 13:00 02/01/24 10:48 Recovery Score Activity: Moves 4 extremities Respiration: Deep Breath/Cough Circulation: +/-20% PreAnes Value Consciousness: Fully Awake Oxygen Saturation: > 92% On Room Air Post Anesthesia Score: 10 Discharge Sedation Level of Care: Fast Track Phase II Post Sedation Plan On clinical assessment, the patient appears to have tolerated the sedation without complications. Patient is recovering as anticipated. Patient will continue to be monitored by nursing and may be discharged when sedation discharge criteria are met per below protocol. Upon Completions of procedure up to 15 minutes continue every 5 minute vital signs and the P.A.R. score; then discharge to a Phase I or Fast Track to Phase II per the following guidelines: * Discharge Patient to appropriate Phase II area if PAR is 8 or greater or return to pre- procedure baseline. The post - procedure orders will be as directed. * If PAR score is less than 8 or not return to pre-procedure baseline then patient will follow Phase I monitoring till PAR is reached for Phase II. The Phase I may be done in procedure room or may call to secure a Phase I area. * If naloxone or flumazenil are used for reversal, hold in Phase I for continued monitoring from when last reversal dose was given for a minimum of 60 minutes or longer pending the nurse and/or physician discretion of patient condition before discharge to Phase II. Please call the Sedation Physician to re-evaluate and complete post-note for discharge to Phase II area. Do NOT discharge from procedure sedation or Phase 1 until post- sedation evaluation note is complete by procedure /sedation MD Sedation Discharge Instructions to be given to the patient at discharge to home.
--- NOTE | 2024-02-02 09:37 | Operative Report ---
Post Operative Report Pre & Post Diagnosis Operation Date: 02/02/24 09:00 Pre-Op Diagnosis: Acute Kidney Injury Post-Op Diagnosis: Acute Kidney Injury I identified the patient and participated in the time-out.: Yes Procedure Operation Date: 02/02/24 09:00 Actual Procedures p Insertion Perm Catheter, Right Internal Jugular Approach, Ultrasound Localization of Right Internal Jugular Vein, Fluoroscopy for Positioning, Moderate Sedatin 09:939(Right) - Ac Cutler MD Surgeon Ac Cutler MD Dielectric Embossing Machine Operator none Estimated Blood Loss 5 Findings Consistent with Post-Op Diagnosis Specimens none Anesthesia Type RN Sedation Complications none Disposition Accompanied Patient To Recovery: No Disposition: Recovery Room Indications This is a 73-year-old gentleman with chronic renal disease with acute kidney injury. He is in need of urgent dialysis. PermCath was recommended for access. I have discussed the risks options and benefits of the procedure with the patient. The patient understands the risks options and benefits and agrees to the procedure. Description of Procedure Patient was taken to the angio suite and placed in the supine position. The right side of the neck and chest wall were prepped and draped in a sterile manner. The patient was identified and a timeout performed. Local anesthesia was then administered to the appropriate areas of the neck and chest wall. Ultrasound was then used to locate the right internal jugular vein. The vein compressed easily, had no filing defects, and was patent. The vein was then punctured under direct ultrasound imaging. A guidewire was then passed centrally under fluoroscopic imaging. A stab wound was then made in the anterior chest wall and a 19 cm permcath was passed from the stab wound on the chest wall to the puncture site on the neck. The puncture site was then dilated till the 14Fr peel away sheath was inserted. The permcath was then inserted through the sheath to a central position in the distal superior vena cava. The peel away sheath was then removed. The catheter was then sutured in place using nylon sutures. The puncture was then closed using a 4-0 Vicryl subcuticular suture. Dermabond was used for a dressing on the puncture site. Both ports aspirated and flushed easily and were then packed with heparin. A sterile dressing was applied to the catheter. The patient left the operation room in satisfactory condition and tolerated the procedure well. All needle and sponge counts were correct at the end of the procedure. I attest to the content of the Intraoperative Record and any orders documented therein. Any exceptions are noted below.
[2024-02-02] MEDS: EPOETIN ALFA 10,000 UNITS/ML VIAL IV ONE (11:41)
[2024-02-02] MEDS ORDERED: ceFAZolin 3000MG 3,000 MG/72.5 ML BAG IV SCH (12:50)
[2024-02-02] MEDS: HEPARIN SOD (PORCINE) 5,000 UNITS/ML VIAL ONE (12:51)
[2024-02-02 14:50] LABS: Hep B Surface Ag with confirm Negative (Negative)
[2024-02-02 15:00] LABS: Hepatitis B Surface Ab Quant < 3.00 mIU/mL (>or=10mIU/mL Immune); Hepatitis B Surface Antibody Non-Immune
--- NOTE | 2024-02-02 17:56 | Nephrology Progress Note ---
Date of Service February 02, 2024 Assessment & Plan (1) End stage renal disease: Plan: longstanding CKD 5/advanced CKD 4 w/ recurrent JORGE progressing now to ESRD to the point where we will soon need to start dialysis, likely this admission though not emergently. e/o ESRD--Severe Anemia, Pulm edema, Hypocalcemia. Overall health status is very poor less likely to tolerate severe renal failure. pt aware of need for dialysis coming up; he has had modality class > interested in PD; has not yet had home visit/met w/ surgeon >> some concerns about how he'll do on PD from OP dialysis team; however for now suggest we move forward in a way that makes it easiest for him to pursue PD per his choices. no dialysis access currently -Dr Cutler placed TDC on 02/01 and 1st dialysis session for 2 hours. next HD AM -refer to [facility] for dialysis after d/c from here -continue lasix 80 iv bid -K appropriate currently w/o suppls (2) CHF (congestive heart failure): Plan: has Pulm edema and this is driven mainly by progression of CKD 5 to ESRD. lasix 80 iv bid to continue (3) Anemia: Plan: has severe anemia of CKD at baseline with h/o GI bleed and now likely GI bleed and High INR. Got PRBC x 2 . Possible EGD today s/p procrit [id number] unit 01/29 transferrin sat 6% as OP 01/18 >> needs Iron IV; got IV iron 01/22 as OP and on standing retacrit OP as well >> venofer 200 mg IV x 4 doses daily Admission and Anticipated Discharge Date Admission Date: January 29, 2024 Subjective Seen for ESRD. Has leg swelling and shortness of breath. Review of Systems 2 Review of Systems: All other systems were reviewed and negative except as noted in HPI Physical Exam 2 Physical Exam: General exam: Appears comfortable, no acute distress HEENT: Pupils are equal and reactive to light Neck: No JVD, neck is supple trachea is midline Respiratory system: Clear breath sounds bilaterally. Gastrointestinal: Abdomen is soft, non distended, non tender, bowel sounds are present CVS: Regular rate and rhythm. No murmurs, rubs or gallops Musculoskeletal: No joint or muscle tenderness Extremities: Non tender, 1+ edema, peripheral pulses are present Neuro: Oriented, no tremors, no focal neurological deficits Skin: No rashes Results & Data Vital Signs (Past 12 Hours) Vital Signs Temp Pulse Pulse Pulse Resp BP BP 02/02/24 16:02 36.8 C 61 18 114/71 02/02/24 14:20 60 02/02/24 12:50 36.5 C 61 18 110/68 02/02/24 12:38 36.5 C 59 L 103/53 L 02/02/24 12:30 60 95/60 L 02/02/24 12:00 59 L 101/52 L 02/02/24 11:30 60 92/57 L 02/02/24 11:00 59 L 105/60 02/02/24 10:30 60 99/58 L 02/02/24 09:54 36.6 C 60 02/02/24 09:40 61 16 115/62 02/02/24 09:35 60 16 113/64 02/02/24 09:30 60 16 106/61 02/02/24 09:25 62 16 113/65 02/02/24 09:20 61 16 113/64 02/02/24 09:15 61 16 115/66 02/02/24 09:10 60 16 118/67 02/02/24 09:03 60 16 112/66 02/02/24 08:09 37 C 75 20 110/58 L 02/02/24 07:20 36.4 C L 67 18 102/61 02/02/24 07:09 60 Pulse Ox O2 Del Method O2 Flow Rate 02/02/24 16:02 95 Room Air 02/02/24 14:20 02/02/24 12:50 97 Room Air 02/02/24 12:38 02/02/24 12:30 02/02/24 12:00 02/02/24 11:30 02/02/24 11:00 02/02/24 10:30 02/02/24 09:54 02/02/24 09:40 99 Room Air 0 02/02/24 09:35 100 Oxymask 4 02/02/24 09:30 100 Oxymask 4 02/02/24 09:25 100 Oxymask 4 02/02/24 09:20 100 Oxymask 4 02/02/24 09:15 100 Oxymask 4 02/02/24 09:10 100 Oxymask 4 02/02/24 09:03 100 Oxymask 4 02/02/24 08:09 96 Room Air 02/02/24 07:20 95 Room Air 02/02/24 07:09 Laboratory Results 02/02/24 05:25 02/02/24 05:25 WBC 6.04 RBC 2.75 L MCV 90.9 MCH 28.7 MCHC 31.6 L RDW Std Deviation 63.9 H RDW Coeff of Jason 20.4 H Plt Count 130 MPV 10.0 (2) CHF (congestive heart failure) Heart failure chronicity: acute Heart failure type: unspecified Qualified Code(s): I50.9 - Heart failure, unspecified (3) Anemia Anemia type: unspecified type Qualified Code(s): D64.9 - Anemia, unspecified
[2024-02-02] MEDS: ALUMINUM/MAGNESIUM SUSP 30 ML UDC PO STA (20:43)
[2024-02-02] MEDS: ceFAZolin 1000MG 1,000 MG/7.5 ML SYR IV ONE (21:54)
[2024-02-03 06:41] LABS: Basophils # (auto) 0.01 K/uL (0.00-0.20); Basophils % (auto) 0.2 %; Eosinophils % (auto) 2.2 %; Hematocrit (blood only) 25.9 % (42.0-52.0); Hemoglobin 8.1 g/dl (14.0-18.0); Immature Granulocytes # (auto) 0.02 K/uL (0.01-0.20); Immature Granulocytes % (auto) 0.4 %; Lymphocytes # (auto) 0.72 K/uL (1.20-3.40); Lymphocytes % (auto) 15.7 %; Mean Corpuscular Hgb Conc 31.3 g/dL (32.0-36.0); Mean Corpuscular Volume 92.8 fL (80.0-100.0); Mean Platelet Volume 10.1 fL (9.4-12.4); Monocytes # (auto) 0.56 K/uL (0.11-0.59); Monocytes % (auto) 12.2 %; Neutrophils # (auto) 3.17 K/uL (1.40-6.50); Neutrophils % (auto) 69.3 %; Platelet Count 121 K/uL (130-400); RDW Standard Deviation 68.4 fL (36.4-46.3); Red Blood Count 2.79 M/uL (4.70-6.10); White Blood Count 4.58 K/ul (4.8-10.8)
[2024-02-03 06:58] LABS: Acanthocytes 1+; Anisocytosis Present; Ovalocytes 1+; Rouleaux 1+
[2024-02-03 07:02] LABS: BUN Creatinine Ratio 15.8 (10-20); Calcium 7.3 mg/dl (8.6-10.3); Creatinine Clr Calc Pharmacy 18.6 ml/min; Potassium 3.5 mmol/L (3.5-5.1)
--- NOTE | 2024-02-03 10:03 | Hospitalist Progress Note ---
Date of Service February 03, 2024 Assessment & Plan (1) Symptomatic anemia: (2) Acute GI bleeding: (3) Atrial fibrillation: (4) Supratherapeutic INR: (5) CKD (chronic kidney disease) stage 4, GFR 15-29 ml/min: (6) Hypocalcemia: (7) CHF (congestive heart failure): (8) Diabetes type 2, controlled: (9) Hypertension: (10) Pacemaker: Plan 73 year old w/ PMH of GI bleed,TBS s/p pacemaker placement, CKD stage IV, CVA, CHF, [id number]-[id number] diabetes, HLD, PAF on Coumadin, history of gastric bypass in 2007, iron deficiency anemia, chronic leg wounds presented 01/28 with worsening SOB x1 week. at ED, he was noted to be volume overloaded with symptomatic anemia and supratherapeutic INR. He reports passing black stool for some time. He is being managed for the following: Symptomatic anemia Upper GI bleed Hgb on arrival 6.4; baseline 8.0. FOBT +ve, complains for dark stool for a while. Recent anemia w/u 01/18: Fe+ 18, TIBC 298, Transferrin 6 Received iv venofer 300mg 01/28. s/p 2 packed RBC. Hb stable around 8.6 Patient underwent EGD on linear and cratered esophageal ulcer with stigmata of recent bleeding were found in middle third of the esophagus. Mild esophageal ulceration deep kissing on both side of the middle esophagus. Mild irritation of residual stomach and jejunum with no ulceration. Transfuse for Hb < 7 or for symptomatic anemia. Currently NPO, c/w PPI. INR 1.3, c/t hold coumadin. hold aspirin. Discussed with GI on 02/01; recommended to hold anticoagulation for another 48 hours. Avoid NSAIDs. Supratherapeutic INR Ho AFib on Coumadin INR of 8.4 at admission, received 10 mg iv vit k and PCC x 1 at admission. 01/29 INR of 1.3. continue to hold coumadin, resume at reduced dose(/closely monitor) when cleared per GI. HR currently under control. Progressive CKD stage IV into V Volume overload iso worsening CKD Hypocalcemia and hyperphosphatemia iso progressive CKD CKD is chronic, progressive, being followed by nephro closely. Baseline Cr around 3-4.5; admitting creatinine around 5. Most recent ECHO 06/16/23: EF 55-60%, mild LVH, mild MR, mild-moderate TR. Admitting CXR with interstitial pulmonary edema and bilateral pleural effusion, patient presented with some shortness of breath. Currently on IV Lasix 80 mg twice a day. Status post insertion of permacath in right internal jugular vein on 02/02/2024. underwent first session of dialysis on 02/02/2024. Chronic leg wounds: WOCN order placed. Empirically started on doxycycline H/O Gastric bypass: [id number] diabetes mellitus: 2007 Anders-en-Y at [facility] [place]; he came off of insulin after his procedure Does not take any oral agents Monitor blood glucose HTN: Chronic. Takes metoprolol; continue HLD: Takes atorvastatin; continue Tachybradycardia syndrome, Status post pacemaker: c/w home cardiac meds as able. Disposition: PCP: Jocelyne Desai PA-C CODE STATUS: Full code VTE prophylaxis teds and SCDs for now pt/ot cm to assist w/ dc plan. Dispositionpatient continues to be hospitalized for multiple medical issues including JORGE on CKD, upper GI bleed which requires close monitoring in the inpatient setting. close monitor inpatient for recurrence of bleeding. Time spent evaluating patient, direct bedside care, chart review, placing orders, interpretation of diagnostic studies, discussion with consultants, patient, and family members, as well as other required patient management activities is 50 minutes Please note the above document was generated using voice recognition software. It may contain grammatical, syntax or spelling errors. Any formal questions or concerns about the content, text or information contained within the body of this dictation should be directly addressed to the provider for clarification Admission and Anticipated Discharge Date Admission Date: January 29, 2024 Subjective Patient seen and examined at bedside. He is comfortable; not in distress Reports some heartburn overnight Review of Systems Review of Systems: All systems reviewed & are unremarkable except as noted in Subjective Physical Exam Physical Exam: General Appearance: no apparent distress, Head: normocephalic, Atraumatic Eyes: normal inspection, EOMI,+ pallor Neck: supple, Trachea midline, Respiratory/Chest: b/l vesicular breath sounds Cardiovascular: S1, S2, No murmur,+ pacemaker Abdomen/GI:Soft, Non tender, Bowel sounds present Extremities/Musculoskeletal:normal inspection, B/L LE Wounds, trace Edema, R great Toe S/P amputation Neurologic/Psych:AAOX3, grossly no focal neurological deficits Skin: normal color, warm Results & Data Results & Data Vital Signs (Past 12 Hours) Vital Signs Temp Pulse Resp BP Pulse Ox O2 Del Method 02/03/24 07:18 36.6 C 62 18 112/67 96 Room Air 02/03/24 03:35 36.7 C 67 18 110/68 96 Room Air 02/02/24 22:48 36.8 C 63 18 105/69 97 Room Air
[2024-02-03] MEDS: HEPARIN SOD (PORCINE) 1000 UNIT/ML IV SCH (12:16)
[2024-02-03] MEDS: HEPARIN SOD (PORCINE) 1000 UNIT/ML IV ONE (12:16)
--- NOTE | 2024-02-03 13:44 | Dialysis Progress Note ---
Date of Service February 03, 2024 Assessment & Plan Admission and Anticipated Discharge Date Admission Date: January 29, 2024 Subjective Assessment & Plan (1) End stage renal disease: Plan: longstanding CKD 5/advanced CKD 4 w/ recurrent JORGE progressing now to ESRD to the point where we will soon need to start dialysis, likely this admission though not emergently. e/o ESRD--Severe Anemia, Pulm edema, Hypocalcemia. Overall health status is very poor less likely to tolerate severe renal failure. pt aware of need for dialysis coming up; he has had modality class > interested in PD; has not yet had home visit/met w/ surgeon >> some concerns about how he'll do on PD from OP dialysis team; however for now suggest we move forward in a way that makes it easiest for him to pursue PD per his choices. Dr Cutler placed TDC on 02/01 and 2 dialysis so far. removing 2000 ml today. 3hrs 3k. next dialysis will be Monday refer [facility] for dialysis after d/c from here continue lasix 80 iv bid (2) CHF (congestive heart failure): Plan: has Pulm edema and this is driven mainly by progression of CKD 5 to ESRD. lasix 80 iv bid to continue (3) Anemia: Plan: has severe anemia of CKD at baseline with h/o GI bleed and now likely GI bleed and High INR. Got PRBC x 2 . give procrit with dialysis and Iv venofer. hgb is still only 8.1 Subjective Seen During dialysis. today is second session. No issues with dialysis--BP is fine and CVC works good. Has leg swelling and shortness of breath. Review of Systems Review of Systems: All other systems were reviewed and negative except as noted in HPI Physical Exam Physical Exam: General exam: Appears comfortable, no acute distress HEENT: Pupils are equal and reactive to light Neck: No JVD, neck is supple trachea is midline Respiratory system: Clear breath sounds bilaterally. Gastrointestinal: Abdomen is soft, non distended, non tender, bowel sounds are present CVS: Regular rate and rhythm. No murmurs, rubs or gallops Musculoskeletal: No joint or muscle tenderness Extremities: Non tender, 1+ edema, peripheral pulses are present Neuro: Oriented, no tremors, no focal neurological deficits Skin: No rashes Results & Data Vital Signs (Past 12 Hours) Vital Signs Temp Pulse Pulse Resp BP BP Pulse Ox 02/03/24 13:00 62 107/64 02/03/24 12:30 64 107/61 02/03/24 12:00 60 108/64 02/03/24 11:42 36.5 C 67 02/03/24 11:01 36.6 C 63 19 123/73 95 02/03/24 07:18 36.6 C 62 18 112/67 96 02/03/24 03:35 36.7 C 67 18 110/68 96 O2 Del Method 02/03/24 13:00 02/03/24 12:30 02/03/24 12:00 02/03/24 11:42 02/03/24 11:01 Room Air 02/03/24 07:18 Room Air 02/03/24 03:35 Room Air
[2024-02-03] MEDS: ALUMINUM/MAGNESIUM SUSP 30 ML UDC PO PRN (13:45)
[2024-02-03] MEDS: FAMOTIDINE 20MG IV PUSH 20 MG/5 ML SYR IV STA (21:47)
[2024-02-04 06:57] LABS: Basophils # (auto) 0.01 K/uL (0.00-0.20); Basophils % (auto) 0.2 %; Eosinophils # (auto) 0.13 K/uL (0.00-0.50); Eosinophils % (auto) 3.2 %; Hematocrit (blood only) 25.7 % (42.0-52.0); Immature Granulocytes # (auto) 0.02 K/uL (0.01-0.20); Immature Granulocytes % (auto) 0.5 %; Lymphocytes # (auto) 0.86 K/uL (1.20-3.40); Lymphocytes % (auto) 20.9 %; Mean Corpuscular Hemoglobin 29.2 pg (25.0-34.0); Mean Corpuscular Hgb Conc 31.1 g/dL (32.0-36.0); Mean Corpuscular Volume 93.8 fL (80.0-100.0); Monocytes % (auto) 12.1 %; Neutrophils % (auto) 63.1 %; Platelet Count 99 K/uL (130-400); RDW Standard Deviation 70.7 fL (36.4-46.3); Red Blood Count 2.74 M/uL (4.70-6.10); White Blood Count 4.12 K/ul (4.8-10.8)
[2024-02-04 07:17] LABS: BUN Creatinine Ratio 12.7 (10-20); Calcium 7.7 mg/dl (8.6-10.3); Creatinine Clr Calc Pharmacy 22.1 ml/min; Potassium 3.4 mmol/L (3.5-5.1)
[2024-02-04 07:22] LABS: Acanthocytes 1+; Anisocytosis Present; Ovalocytes 1+; Polychromasia 1+
--- NOTE | 2024-02-04 08:37 | Hospitalist Progress Note ---
Date of Service February 04, 2024 Assessment & Plan (1) Symptomatic anemia: (2) Acute GI bleeding: (3) Atrial fibrillation: (4) Supratherapeutic INR: (5) CKD (chronic kidney disease) stage 4, GFR 15-29 ml/min: (6) Hypocalcemia: (7) CHF (congestive heart failure): (8) Diabetes type 2, controlled: (9) Hypertension: (10) Pacemaker: Plan 73 year old w/ PMH of GI bleed,TBS s/p pacemaker placement, CKD stage IV, CVA, CHF, [id number] diabetes, HLD, PAF on Coumadin, history of gastric bypass in 2007, iron deficiency anemia, chronic leg wounds presented 01/28 with worsening SOB x1 week. at ED, he was noted to be volume overloaded with symptomatic anemia and supratherapeutic INR. He reports passing black stool for some time. He is being managed for the following: Symptomatic anemia Upper GI bleed Hgb on arrival 6.4; baseline 8.0. FOBT +ve, complains for dark stool for a while. Recent anemia w/u 01/18: Fe+ 18, TIBC 298, Transferrin 6 Received iv venofer 300mg 01/28. s/p 2 packed RBC. Hb stable around 8.6 Patient underwent EGD on linear and cratered esophageal ulcer with stigmata of recent bleeding were found in middle third of the esophagus. Mild esophageal ulceration deep kissing on both side of the middle esophagus. Mild irritation of residual stomach and jejunum with no ulceration. Transfuse for Hb < 7 or for symptomatic anemia. Currently on full liquid diet. Patient continues to report dark stools; platelets are 99,000; will appreciate GI input regarding resumption of anticoagulation. Holding off anticoagulation for now. Supratherapeutic INR Ho AFib on Coumadin INR of 8.4 at admission, received 10 mg iv vit k and PCC x 1 at admission. 01/29 INR of 1.3. continue to hold coumadin, to be resume at reduced dose(/closely monitor) when cleared per GI. HR currently under control. Progressive CKD stage IV into V Volume overload iso worsening CKD Hypocalcemia and hyperphosphatemia iso progressive CKD CKD is chronic, progressive, being followed by nephro closely. Baseline Cr around 3-4.5; admitting creatinine around 5. Most recent ECHO 06/16/23: EF 55-60%, mild LVH, mild MR, mild-moderate TR. Admitting CXR with interstitial pulmonary edema and bilateral pleural effusion, patient presented with some shortness of breath. Currently on IV Lasix 80 mg twice a day. Status post insertion of permacath in right internal jugular vein on 02/02/2024. underwent first session of dialysis on 02/02/2024. Chronic leg wounds: WOCN order placed. on doxycycline H/O Gastric bypass: [id number]-ugoleqxpa diabetes mellitus: 2007 Anders-en-Y at [facility] [place]; he came off of insulin after his procedure Does not take any oral agents Monitor blood glucose HTN: Chronic. Takes metoprolol; continue HLD: Takes atorvastatin; continue Tachybradycardia syndrome, Status post pacemaker: c/w home cardiac meds as able. Disposition: PCP: Jocelyne Desai PA-C CODE STATUS: Full code VTE prophylaxis teds and SCDs for now pt/ot cm to assist w/ dc plan. Dispositionpatient continues to be hospitalized for multiple medical issues including JORGE on CKD, upper GI bleed which requires close monitoring in the inpatient setting. close monitor inpatient for recurrence of bleeding. Time spent evaluating patient, direct bedside care, chart review, placing orders, interpretation of diagnostic studies, discussion with consultants, patient, and family members, as well as other required patient management activities is 50 minutes Please note the above document was generated using voice recognition software. It may contain grammatical, syntax or spelling errors. Any formal questions or concerns about the content, text or information contained within the body of this dictation should be directly addressed to the provider for clarification Admission and Anticipated Discharge Date Admission Date: January 29, 2024 Subjective Patient seen and examined at bedside. He is comfortable; not in distress No significant events overnight Vitals signs are stable As per RN, patient was noted to have dark stools last evening. Review of Systems Review of Systems: All systems reviewed & are unremarkable except as noted in Subjective Physical Exam Physical Exam: General Appearance: no apparent distress, Head: normocephalic, Atraumatic Eyes: normal inspection, EOMI,+ pallor Neck: supple, Trachea midline, Respiratory/Chest: b/l vesicular breath sounds Cardiovascular: S1, S2, No murmur,+ pacemaker Abdomen/GI:Soft, Non tender, Bowel sounds present Extremities/Musculoskeletal:normal inspection, B/L LE Wounds, trace Edema, R great Toe S/P amputation Neurologic/Psych:AAOX3, grossly no focal neurological deficits Skin: normal color, warm Results & Data Results & Data Vital Signs (Past 12 Hours) Vital Signs Temp Pulse Pulse Pulse Resp BP Pulse Ox 02/04/24 07:23 36.6 C 68 19 111/68 97 02/04/24 03:09 36.6 C 64 18 107/60 95 02/03/24 23:02 36.6 C 61 18 117/62 96 02/03/24 21:48 60 O2 Del Method 02/04/24 07:23 Room Air 02/04/24 03:09 Room Air 02/03/24 23:02 Room Air 02/03/24 21:48
[2024-02-04] MEDS: Heparin IV Adult Wt-Based Low-Dose *NO* INITIAL Bolus Protocol IV STA (08:52)
[2024-02-04] MEDS: HEPARIN SODIUM/DEXTROSE 25,000 UNITS/500 ML BAG IV SCH (08:53)
--- NOTE | 2024-02-04 16:05 | Nephrology Progress Note ---
Date of Service February 04, 2024 Assessment & Plan Admission and Anticipated Discharge Date Admission Date: January 29, 2024 Subjective Assessment & Plan (1) End stage renal disease: Plan: longstanding CKD 5/advanced CKD 4 w/ recurrent JORGE progressing now to ESRD to the point where we will soon need to start dialysis, likely this admission though not emergently. e/o ESRD--Severe Anemia, Pulm edema, Hypocalcemia. Overall health status is very poor less likely to tolerate severe renal failure. pt aware of need for dialysis coming up; he has had modality class > interested in PD; has not yet had home visit/met w/ surgeon >> some concerns about how he'll do on PD from OP dialysis team; however for now suggest we move forward in a way that makes it easiest for him to pursue PD per his choices. Dr Cutler placed TDC on 02/01 and 2 dialysis so far. next dialysis will be Monday. orders written for 3.5 hrs Refer to [facility] for dialysis after d/c from here continue lasix 80 iv bid while inpt and torsemide 100 mg daily for discharge. Do use heparin mini dose. (2) CHF (congestive heart failure): Plan: has Pulm edema and this is driven mainly by progression of CKD 5 to ESRD. lasix 80 iv bid to continue (3) Anemia: Plan: has severe anemia of CKD at baseline with h/o GI bleed and now likely GI bleed and High INR. Got PRBC x 2 . give procrit with dialysis and Iv venofer. hgb is still low Subjective So far No issues with dialysis--BP is fine and CVC works good. Has leg swelling and shortness of breath. Not a lot of urine with lasix iv Review of Systems Review of Systems: All other systems were reviewed and negative except as noted in HPI Physical Exam Physical Exam: General exam: Appears comfortable, no acute distress HEENT: Pupils are equal and reactive to light Neck: No JVD, neck is supple trachea is midline Respiratory system: Clear breath sounds bilaterally. Gastrointestinal: Abdomen is soft, non distended, non tender, bowel sounds are present CVS: Regular rate and rhythm. No murmurs, rubs or gallops Musculoskeletal: No joint or muscle tenderness Extremities: Non tender, 1+ edema, peripheral pulses are present Neuro: Oriented, no tremors, no focal neurological deficits Skin: No rashes Results & Data Vital Signs (Past 12 Hours) Vital Signs Temp Pulse Resp BP Pulse Ox O2 Del Method 02/04/24 15:18 36.6 C 60 20 102/62 96 Room Air 02/04/24 10:34 36.6 C 64 20 111/67 98 Room Air 02/04/24 07:23 36.6 C 68 19 111/68 97 Room Air
[2024-02-05 08:00] LABS: Basophils # (auto) 0.01 K/uL (0.00-0.20); Basophils % (auto) 0.2 %; Eosinophils # (auto) 0.15 K/uL (0.00-0.50); Eosinophils % (auto) 3.3 %; Hematocrit (blood only) 27.7 % (42.0-52.0); Hemoglobin 8.6 g/dl (14.0-18.0); Immature Granulocytes # (auto) 0.02 K/uL (0.01-0.20); Immature Granulocytes % (auto) 0.4 %; Lymphocytes # (auto) 1.04 K/uL (1.20-3.40); Lymphocytes % (auto) 23.2 %; Mean Corpuscular Volume 93.3 fL (80.0-100.0); Mean Platelet Volume 11.2 fL (9.4-12.4); Monocytes # (auto) 0.43 K/uL (0.11-0.59); Monocytes % (auto) 9.6 %; Neutrophils # (auto) 2.84 K/uL (1.40-6.50); Neutrophils % (auto) 63.3 %; Platelet Count 122 K/uL (130-400); RDW Coefficient of Variation 20.1 % (11.5-14.5); RDW Standard Deviation 68.4 fL (36.4-46.3); Red Blood Count 2.97 M/uL (4.70-6.10); White Blood Count 4.49 K/ul (4.8-10.8)
[2024-02-05 08:18] LABS: BUN Creatinine Ratio 12.8 (10-20); Calcium 7.8 mg/dl (8.6-10.3); Creatinine Clr Calc Pharmacy 20.1 ml/min; Potassium 3.4 mmol/L (3.5-5.1)
[2024-02-05 08:29] LABS: Anisocytosis Present; Echinocytes 1+; Polychromasia 1+
--- NOTE | 2024-02-05 08:45 | Hospitalist Progress Note ---
Date of Service February 05, 2024 Assessment & Plan (1) Symptomatic anemia: (2) Acute GI bleeding: (3) Atrial fibrillation: (4) Supratherapeutic INR: (5) CKD (chronic kidney disease) stage 4, GFR 15-29 ml/min: (6) Hypocalcemia: (7) CHF (congestive heart failure): (8) Diabetes type 2, controlled: (9) Hypertension: (10) Pacemaker: Plan 73 year old w/ PMH of GI bleed,TBS s/p pacemaker placement, CKD stage IV, CVA, CHF, [id number] diabetes, HLD, PAF on Coumadin, history of gastric bypass in 2007, iron deficiency anemia, chronic leg wounds presented 01/28 with worsening SOB x1 week. at ED, he was noted to be volume overloaded with symptomatic anemia and supratherapeutic INR. He reports passing black stool for some time. He is being managed for the following: Symptomatic anemia Upper GI bleed Hgb on arrival 6.4; baseline 8.0. FOBT +ve, complains for dark stool for a while. Recent anemia w/u 01/18: Fe+ 18, TIBC 298, Transferrin 6 Received iv venofer 300mg 01/28. s/p 2 packed RBC. Hb stable around 8.6 Patient underwent EGD on linear and cratered esophageal ulcer with stigmata of recent bleeding were found in middle third of the esophagus. Mild esophageal ulceration deep kissing on both side of the middle esophagus. Mild irritation of residual stomach and jejunum with no ulceration. Transfuse for Hb < 7 or for symptomatic anemia. Currently on full liquid diet; advance to regular diet. Patient's hemoglobin is now stable at around 8-8.6; denies any recurrence of black stool. Will start low-dose heparin without bolus starting today. Plan to initiate Coumadin from tomorrow. Patient was previously on 3 mg on Tuesdays and , 1.5 mg on rest of the days; INR was significantly elevated to 8 on admission. Will start with loading dose of 2.5 for 2 days and maintenance dose to be around 1.5 daily with plan to follow-up with anticoagulation clinic. Supratherapeutic INR Ho AFib on Coumadin INR of 8.4 at admission, received 10 mg iv vit k and PCC x 1 at admission. 01/29 INR of 1.3. continue to hold coumadin, started on heparin drip on 02/05/2024 Progressive CKD stage IV into V Volume overload iso worsening CKD Hypocalcemia and hyperphosphatemia iso progressive CKD CKD is chronic, progressive, being followed by nephro closely. Baseline Cr around 3-4.5; admitting creatinine around 5. Most recent ECHO 06/16/23: EF 55-60%, mild LVH, mild MR, mild-moderate TR. Admitting CXR with interstitial pulmonary edema and bilateral pleural effusion, patient presented with some shortness of breath. Currently on IV Lasix 80 mg twice a day. Status post insertion of permacath in right internal jugular vein on 02/02/2024. underwent first session of dialysis on 02/02/2024. Chronic leg wounds: WOCN order placed. on doxycycline for total of 7 days. H/O Gastric bypass: [id number] diabetes mellitus: 2007 Anders-en-Y at [facility] [place]; he came off of insulin after his procedure Does not take any oral agents Monitor blood glucose HTN: Chronic. Takes metoprolol; continue HLD: Takes atorvastatin; continue Tachybradycardia syndrome, Status post pacemaker: c/w home cardiac meds as able. Disposition: PCP: Jocelyne Desai PA-C CODE STATUS: Full code VTE prophylaxis-heparin pt/ot cm to assist w/ dc plan. Dispositionpatient continues to be hospitalized for multiple medical issues including JORGE on CKD, upper GI bleed which requires close monitoring in the inpatient setting. close monitor inpatient for recurrence of bleeding. restarted on heparin Time spent evaluating patient, direct bedside care, chart review, placing orders, interpretation of diagnostic studies, discussion with consultants, patient, and family members, as well as other required patient management activities is 50 minutes Please note the above document was generated using voice recognition software. It may contain grammatical, syntax or spelling errors. Any formal questions or c oncerns about the content, text or information contained within the body of this dictation should be directly addressed to the provider for clarification Admission and Anticipated Discharge Date Admission Date: January 29, 2024 Subjective Patient seen and examined at bedside. He is comfortable; not in distress No significant events overnight No complaints of black stool; vital signs are stable. Review of Systems Review of Systems: All systems reviewed & are unremarkable except as noted in Subjective Physical Exam Physical Exam: General Appearance: no apparent distress, Head: normocephalic, Atraumatic Eyes: normal inspection, EOMI,+ pallor Neck: supple, Trachea midline, Respiratory/Chest: b/l vesicular breath sounds Cardiovascular: S1, S2, No murmur,+ pacemaker Abdomen/GI:Soft, Non tender, Bowel sounds present Extremities/Musculoskeletal:normal inspection, B/L LE Wounds, trace Edema, R great Toe S/P amputation Neurologic/Psych:AAOX3, grossly no focal neurological deficits Skin: normal color, warm Results & Data Results & Data Vital Signs (Past 12 Hours) Vital Signs Temp Pulse Resp BP Pulse Ox O2 Del Method 02/05/24 02:31 36.7 C 62 18 101/62 96 Room Air 02/04/24 22:48 36.8 C 60 18 100/61 96 Room Air
[2024-02-05] MEDS: HEPARIN SODIUM/DEXTROSE 25,000 UNITS/500 ML BAG IV SCH (09:30)
--- NOTE | 2024-02-05 09:36 | Dialysis Progress Note ---
Date of Service February 05, 2024 Assessment & Plan Admission and Anticipated Discharge Date Admission Date: January 29, 2024 Subjective Assessment & Plan (1) End stage renal disease: Plan: longstanding CKD 5/advanced CKD 4 w/ recurrent JORGE progressing now to ESRD to the point where we will soon need to start dialysis, likely this admission though not emergently. e/o ESRD--Severe Anemia, Pulm edema, Hypocalcemia. Overall health status is very poor less likely to tolerate severe renal failure. pt aware of need for dialysis coming up; he has had modality class > interested in PD; has not yet had home visit/met w/ surgeon >> some concerns about how he'll do on PD from OP dialysis team; however for now suggest we move forward in a way that makes it easiest for him to pursue PD per his choices. Dr Cutlre placed TDC on 02/01 and 2 dialysis so far. removing 2000 ml today. 3hrs 3k. next dialysis will be Monday refer to [facility] for dialysis after d/c from here continue lasix 80 iv bid while inpt. Most likely Schedule will be TTS---so next Dialysis will be on . Dialysis for 3 hrs today--now aim for 2 kilo. (2) CHF (congestive heart failure): Plan: has Pulm edema and this is driven mainly by progression of CKD 5 to ESRD. lasix 80 iv bid to continue (3) Anemia: Plan: has severe anemia of CKD at baseline with h/o GI bleed and now likely GI bleed and High INR. Got PRBC x 2 . give procrit with dialysis and Iv venofer. hgb is still very low--give procrit 82102 Units Subjective Seen During dialysis. BP already dropping so will lower UF goal. CVC works good. Has leg swelling but no SOB now Review of Systems Review of Systems: All other systems were reviewed and negative except as noted in HPI Physical Exam Physical Exam: General exam: Appears comfortable, no acute distress HEENT: Pupils are equal and reactive to light Neck: No JVD, neck is supple trachea is midline Respiratory system: Clear breath sounds bilaterally. Gastrointestinal: Abdomen is soft, non distended, non tender, bowel sounds are present CVS: Regular rate and rhythm. No murmurs, rubs or gallops Musculoskeletal: No joint or muscle tenderness Extremities: Non tender, 1+ edema, peripheral pulses are present Neuro: Oriented, no tremors, no focal neurological deficits Skin: No rashes Results & Data Vital Signs (Past 12 Hours) Vital Signs Temp Pulse Pulse Resp BP BP Pulse Ox 02/05/24 09:00 63 97/60 L 02/05/24 08:55 61 115/66 02/05/24 08:50 36.5 C 84 02/05/24 02:31 36.7 C 62 18 101/62 96 02/04/24 22:48 36.8 C 60 18 100/61 96 O2 Del Method 02/05/24 09:00 02/05/24 08:55 02/05/24 08:50 02/05/24 02:31 Room Air 02/04/24 22:48 Room Air
[2024-02-05] MEDS: EPOETIN ALFA 20,000 UNITS/ML VIAL IV SCH (10:04)
[2024-02-05] MEDS: Heparin IV Adult Wt-Based Low-Dose *NO* INITIAL Bolus Protocol IV STA (10:05)
[2024-02-05 17:50] LABS: ANTI-Xa, UFH(UnfractionatedHep 0.22 IU/ml (0.3-0.7)
[2024-02-05 20:37] LABS: Basophils # (auto) 0.02 K/uL (0.00-0.20); Basophils % (auto) 0.5 %; Eosinophils # (auto) 0.12 K/uL (0.00-0.50); Eosinophils % (auto) 2.8 %; Hematocrit (blood only) 27.2 % (42.0-52.0); Hemoglobin 8.3 g/dl (14.0-18.0); Immature Granulocytes # (auto) 0.03 K/uL (0.01-0.20); Immature Granulocytes % (auto) 0.7 %; Lymphocytes # (auto) 0.76 K/uL (1.20-3.40); Lymphocytes % (auto) 17.7 %; Mean Corpuscular Hemoglobin 28.9 pg (25.0-34.0); Mean Corpuscular Hgb Conc 30.5 g/dL (32.0-36.0); Mean Corpuscular Volume 94.8 fL (80.0-100.0); Mean Platelet Volume 10.7 fL (9.4-12.4); Monocytes # (auto) 0.41 K/uL (0.11-0.59); Monocytes % (auto) 9.5 %; Neutrophils # (auto) 2.96 K/uL (1.40-6.50); Neutrophils % (auto) 68.8 %; Platelet Count 101 K/uL (130-400); RDW Standard Deviation 68.8 fL (36.4-46.3); Red Blood Count 2.87 M/uL (4.70-6.10)
[2024-02-06 06:55] LABS: Basophils # (auto) 0.02 K/uL (0.00-0.20); Basophils % (auto) 0.5 %; Eosinophils # (auto) 0.15 K/uL (0.00-0.50); Eosinophils % (auto) 4.1 %; Hematocrit (blood only) 26.9 % (42.0-52.0); Hemoglobin 8.4 g/dl (14.0-18.0); Immature Granulocytes # (auto) 0.04 K/uL (0.01-0.20); Immature Granulocytes % (auto) 1.1 %; Lymphocytes # (auto) 0.91 K/uL (1.20-3.40); Lymphocytes % (auto) 24.7 %; Mean Corpuscular Hemoglobin 29.3 pg (25.0-34.0); Mean Corpuscular Hgb Conc 31.2 g/dL (32.0-36.0); Mean Corpuscular Volume 93.7 fL (80.0-100.0); Mean Platelet Volume 11.1 fL (9.4-12.4); Monocytes % (auto) 10.9 %; Neutrophils # (auto) 2.16 K/uL (1.40-6.50); Neutrophils % (auto) 58.7 %; Platelet Count 105 K/uL (130-400); RDW Coefficient of Variation 19.4 % (11.5-14.5); RDW Standard Deviation 66.3 fL (36.4-46.3); Red Blood Count 2.87 M/uL (4.70-6.10); White Blood Count 3.68 K/ul (4.8-10.8)
[2024-02-06 07:39] LABS: Calcium 7.5 mg/dl (8.6-10.3); Potassium 3.1 mmol/L (3.5-5.1)
[2024-02-06 07:44] LABS: BUN Creatinine Ratio 10.4 (10-20); Creatinine Clr Calc Pharmacy 24.3 ml/min
[2024-02-06] MEDS: POTASSIUM CHLORIDE CRTAB 20 MEQ TABCR PO STA (09:06)
--- NOTE | 2024-02-06 09:07 | Hospitalist Progress Note ---
Date of Service February 06, 2024 Assessment & Plan (1) Symptomatic anemia: (2) Acute GI bleeding: (3) Atrial fibrillation: (4) Supratherapeutic INR: (5) CKD (chronic kidney disease) stage 4, GFR 15-29 ml/min: (6) Hypocalcemia: (7) CHF (congestive heart failure): (8) Diabetes type 2, controlled: (9) Hypertension: (10) Pacemaker: Plan 73 year old w/ PMH of GI bleed,TBS s/p pacemaker placement, CKD stage IV, CVA, CHF, gcu-fyigsaq-exdmbmivs diabetes, HLD, PAF on Coumadin, history of gastric bypass in 2007, iron deficiency anemia, chronic leg wounds presented 01/28 with worsening SOB x1 week. at ED, he was noted to be volume overloaded with symptomatic anemia and supratherapeutic INR. He reports passing black stool for some time. He is being managed for the following: Symptomatic anemia Upper GI bleed Supratherapeutic INR Ho AFib on Coumadin Hgb on arrival 6.4; baseline 8.0. FOBT +ve, complains for dark stool for a while. Recent anemia w/u 01/18: Fe+ 18, TIBC 298, Transferrin 6 Received iv venofer 300mg 01/28. s/p 2 packed RBC. Hb stable around 8 Patient underwent EGD on linear and cratered esophageal ulcer with stigmata of recent bleeding were found in middle third of the esophagus. Mild esophageal ulceration deep kissing on both side of the middle esophagus. Mild irritation of residual stomach and jejunum with no ulceration. Patient started on heparin on 02/05/2024; Coumadin added on 02/06/2024. Hemoglobin is currently stable He presented with significantly elevated INR of 8; will need close follow-up with anticoagulation clinic for dosage adjustment after discharge. Started on Coumadin of 2.5 mg once a day Continue IV PPI twice daily for now; changed to oral at discharge Progressive CKD stage IV into V Volume overload iso worsening CKD Hypocalcemia and hyperphosphatemia iso progressive CKD CKD is chronic, progressive, being followed by nephro closely. Baseline Cr around 3-4.5; admitting creatinine around 5. Most recent ECHO 06/16/23: EF 55-60%, mild LVH, mild MR, mild-moderate TR. Admitting CXR with interstitial pulmonary edema and bilateral pleural effusion, patient presented with some shortness of breath. Status post insertion of permacath in right internal jugular vein on 02/02/2024. underwent first session of dialysis on 02/02/2024. Outpatient dialysis being set up with help of case management. Nephrology recommended torsemide 100 mg once a day at the time of the discharge; currently on IV Lasix 80 mg twice a day Chronic leg wounds: monitor, was given doxycycline for 7 days. H/O Gastric bypass: [id number] diabetes mellitus: [address]Y [address] [facility] [place]; he came off of insulin after his procedure Does not take any oral agents Monitor blood glucose HTN: Chronic. Takes metoprolol; continue HLD: Takes atorvastatin; continue Tachybradycardia syndrome, Status post pacemaker: c/w home cardiac meds as able. Disposition: PCP: Jocelyne Desai PA-C CODE STATUS: Full code VTE prophylaxis-heparin pt/ot cm to assist w/ dc plan. Dispositionpatient continues to be hospitalized for multiple medical issues including JORGE on CKD, upper GI bleed which requires close monitoring in the inpatient setting. close monitor inpatient for recurrence of bleeding. on heparin- Coumadin bridge Time spent evaluating patient, direct bedside care, chart review, placing orders, interpretation of diagnostic studies, discussion with consultants, patient, and family members, as well as other required patient management activities is 50 minutes Please note the above document was generated using voice recognition software. It may contain grammatical, syntax or spelling errors. Any formal questions or concerns about the content, text or information contained within the body of this dictation should be directly addressed to the provider for clarification Admission and Anticipated Discharge Date Admission Date: January 29, 2024 Subjective Patient seen and examined at bedside. He is comfortable; not in distress Vital signs are stable No signs or symptoms of recurrence of GI bleeding Review of Systems Review of Systems: All systems reviewed & are unremarkable except as noted in Subjective Physical Exam Physical Exam: General Appearance: no apparent distress, Head: normocephalic, Atraumatic Eyes: normal inspection, EOMI,+ pallor Neck: supple, Trachea midline, Respiratory/Chest: b/l vesicular breath sounds Cardiovascular: S1, S2, No murmur,+ pacemaker Abdomen/GI:Soft, Non tender, Bowel sounds present Extremities/Musculoskeletal:normal inspection, B/L LE Wounds, trace Edema, R great Toe S/P amputation Neurologic/Psych:AAOX3, grossly no focal neurological deficits Skin: normal color, warm Results & Data Results & Data Vital Signs (Past 12 Hours) Vital Signs Temp Pulse Pulse Resp BP Pulse Ox O2 Del Method 02/06/24 07:40 36.6 C 63 18 103/66 98 Room Air 02/06/24 03:22 36.6 C 66 20 94/60 L 98 Room Air 02/05/24 22:53 36.4 C L 61 18 102/65 100 Room Air 02/05/24 21:54 60
[2024-02-06] MEDS: WARFARIN SOD 2.5 MG TAB PO SCH (17:07)
[2024-02-07 06:11] LABS: Basophils # (auto) 0.02 K/uL (0.00-0.20); Basophils % (auto) 0.4 %; Eosinophils # (auto) 0.14 K/uL (0.00-0.50); Hematocrit (blood only) 26.4 % (42.0-52.0); Hemoglobin 8.2 g/dl (14.0-18.0); Immature Granulocytes # (auto) 0.02 K/uL (0.01-0.20); Immature Granulocytes % (auto) 0.4 %; Lymphocytes # (auto) 1.25 K/uL (1.20-3.40); Lymphocytes % (auto) 26.5 %; Mean Corpuscular Hemoglobin 28.7 pg (25.0-34.0); Mean Corpuscular Hgb Conc 31.1 g/dL (32.0-36.0); Mean Corpuscular Volume 92.3 fL (80.0-100.0); Mean Platelet Volume 11.3 fL (9.4-12.4); Monocytes % (auto) 10.6 %; Neutrophils # (auto) 2.79 K/uL (1.40-6.50); Neutrophils % (auto) 59.1 %; Platelet Count 111 K/uL (130-400); RDW Standard Deviation 63.8 fL (36.4-46.3); Red Blood Count 2.86 M/uL (4.70-6.10); White Blood Count 4.72 K/ul (4.8-10.8)
[2024-02-07 06:34] LABS: BUN Creatinine Ratio 10.6 (10-20); Calcium 7.5 mg/dl (8.6-10.3); Potassium 3.4 mmol/L (3.5-5.1)
[2024-02-07 06:54] LABS: INR 1.3 (0.9-1.1); Prothrombin Time 14.2 Seconds (9.0-12.0)
[2024-02-07] MEDS: POTASSIUM CHLORIDE CRTAB 20 MEQ TABCR PO STA (08:36)
--- NOTE | 2024-02-07 12:04 | Hospitalist Progress Note ---
Date of Service February 07, 2024 Assessment & Plan (1) Atrial fibrillation: (2) Supratherapeutic INR: (3) Hypocalcemia: (4) Diabetes type 2, controlled: (5) Hypertension: (6) Pacemaker: (7) CKD (chronic kidney disease) stage 5, GFR less than 15 ml/min: (8) End stage renal disease: (9) Esophageal ulcer: (10) Acute blood loss anemia: (11) Acute heart failure with preserved ejection fraction: (12) Pancytopenia: Plan Patient presents with acute blood loss anemia due to esophageal ulcers and progressive chronic renal failure to end-stage renal disease requiring hemodialysis. Status post transfusion of packed red blood cells, hemoglobin appears to remain stable Hemodialysis tunneled catheter placed, continue hemodialysis directed by nephrology Transition to oral PPI Okay to MedSurg Restarting warfarin for atrial fibrillation, heparin bridging Replace potassium Suspect pancytopenia in setting of chronic renal failure and blood loss anemia. Will continue to monitor CBC Ultrasound right upper extremity due to swelling Case management coordinating outpatient hemodialysis Admission and Anticipated Discharge Date Admission Date: January 29, 2024 Subjective Patient sitting up in chair. No shortness of breath. Does notice some right upper extremity swelling Physical Exam Physical Exam: Constitutional: Alert, no acute distress, nontoxic HEENT: Mucous membranes moist. Lungs: Decreased breath sounds, crackles at bases CV: S1-S2, irregular Abdomen: Soft, nontender, nondistended Extremities: Edema right upper extremity greater than left Hard edema lower extremities Neuro: No focal deficits Psych: Cooperative, normal mood Results & Data Results & Data Vital Signs (Past 12 Hours) Vital Signs Temp Pulse Resp BP Pulse Ox O2 Del Method 02/07/24 07:46 36.8 C 65 18 110/67 99 Room Air 02/07/24 03:08 36.6 C 61 18 113/65 99 Room Air Diagnostic Findings Reviewed imaging, laboratory and diagnostic studies. Pertinent findings as below. Hemoglobin 8.2, stable WBCs 4.7 Platelets 111 Potassium 3.4 Creatinine 3.8 INR 1.3
[2024-02-07 13:23] LABS: ANTI-Xa, UFH(UnfractionatedHep 0.22 IU/ml (0.3-0.7)
[2024-02-07] MEDS: WARFARIN SOD 2.5 MG TAB PO ONE (21:08)
[2024-02-07] MEDS: PANTOprazole 40 MG TAB PO SCH (21:09)
--- NOTE | 2024-02-08 00:50 | Ultrasound Report ---
EXAM: US venous doppler UE RT CLINICAL HISTORY: Recent port placement. Swelling in AC fossa area of RUE NEG DVT IN RUE Superficial thrombus seen in the distal cephalic vein from wrist to mid-FA. About 5cm. TECHNIQUE: Ultrasound examination of right upper extremity veins was performed in real-time and duplex. One or more of the following were performed- spectral analysis, resistive index, waveform analysis, and pulsed Doppler. COMPARISON: None. FINDINGS: The distal cephalic vein diameter in the wrist and mid forearm measures 0.24 and 0.20 cm respectively. Echogenic material is identified in the cephalic vein at these regions for about 5 cm, likely representing a thrombus. Normal phasic, non-pulsatile, and spontaneous flow is noted in the left Internal jugular, subclavian, axillary, brachial, basilic, proximal cephalic, antecubital, radial, and ulnar veins. Visualized veins of the left upper extremity demonstrate normal compressibility. No sonographic evidence of acute deep vein thrombosis (DVT) is detected in the visualized veins of the upper extremity. Compression and Augmentation: All evaluated veins compress fully with applied transducer pressure. Augmentation of venous flow is noted with distal compression. Additional Findings: Mild to moderate subcutaneous soft tissue edema is identified in the antecubital fossa. IMPRESSION: 1. There is evidence of a thrombus in the right cephalic vein at the wrist and mid-forearm for about 5 cm. 2. The rest of the visualized superficial and deep veins are unremarkable. Disclaimer: DVT could be missed early in the disease when the clot burden is minimal. For patients with moderate and high pretest probability of DVT and negative ultrasound, the [place] [employer] clinical guidelines recommend testing with a D-dimer assay or repeat ultrasound in 5-7 days. If symptoms worsen, the Society of Radiologists in Ultrasound recommends repeating ultrasound even earlier. [facility]'s ER was called at [phone] at 11:43 PM [employer], 02/07/2024, and Nurse Bowman was informed regarding the presence of Significant Medical Findings on this report. Electronically signed by Anant Chandler 02-08-2024 12:50 AM
[2024-02-08 07:13] LABS: Hematocrit (blood only) 26.2 % (42.0-52.0); Hemoglobin 8.1 g/dl (14.0-18.0); Mean Corpuscular Hemoglobin 28.8 pg (25.0-34.0); Mean Corpuscular Hgb Conc 30.9 g/dL (32.0-36.0); Mean Corpuscular Volume 93.2 fL (80.0-100.0); Mean Platelet Volume 10.3 fL (9.4-12.4); Platelet Count 114 K/uL (130-400); RDW Coefficient of Variation 19.1 % (11.5-14.5); RDW Standard Deviation 65.7 fL (36.4-46.3); Red Blood Count 2.81 M/uL (4.70-6.10); White Blood Count 3.49 K/ul (4.8-10.8)
[2024-02-08 07:30] LABS: BUN Creatinine Ratio 10.8 (10-20); Calcium 7.5 mg/dl (8.6-10.3); Magnesium 2.1 mg/dl (1.7-2.4); Phosphorus 3.8 mg/dl (2.5-4.9); Potassium 3.3 mmol/L (3.5-5.1)
[2024-02-08 07:40] LABS: INR 1.5 (0.9-1.1); Prothrombin Time 16.1 Seconds (9.0-12.0)
[2024-02-08] MEDS: EPOETIN ALFA 20,000 UNITS/ML VIAL IV ONE (11:45)
--- NOTE | 2024-02-08 13:01 | Hospitalist Progress Note ---
Date of Service February 08, 2024 Assessment & Plan (1) Atrial fibrillation: (2) End stage renal disease: (3) Esophageal ulcer: (4) Acute blood loss anemia: (5) Deep vein thrombosis, upper right extremity: (6) Pancytopenia: (7) Acute heart failure with preserved ejection fraction: (8) CKD (chronic kidney disease) stage 5, GFR less than 15 ml/min: (9) Supratherapeutic INR: (10) Hypocalcemia: (11) Diabetes type 2, controlled: (12) Hypertension: (13) Pacemaker: Plan Patient presents with acute blood loss anemia on chronic anemia of renal failure due to esophageal ulcer bleeding and a supratherapeutic INR. Patient is status post reversal of his warfarin and EGD which revealed esophageal ulcers. Patient now with evidence of a right upper extremity DVT Patient's renal function progressed to the point where he required hemodialysis, hemodialysis catheter placed and is undergoing dialysis. Case management coordinating outpatient dialysis schedule. Continuing IV heparin well warfarin has been restarted. Hemoglobin has been stable. No evidence of ongoing bleeding. Warfarin dose increased yesterday. INR starting to trend upward, continue to trend INR, discontinue IV heparin when INR therapeutic Continue PPI twice daily 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 with nephrology, coordinating hemodialysis while here in the hospital. Will determine need for ongoing IV Lasix Replace potassium Anticipate discharge to home when INR therapeutic and outpatient hemodialysis as scheduled and coordinated Admission and Anticipated Discharge Date Admission Date: January 29, 2024 Subjective No acute issues overnight. Swelling in right arm slightly better. Patient reports soreness in the right upper arm and into his neck and shoulder. Physical Exam Physical Exam: Constitutional: Alert, nontoxic HEENT: Mucous membranes moist. Lungs: Clear to auscultation, decreased, no wheezes rales or rhonchi CV: S1-S2, r irregular, hemodialysis catheter right chest Abdomen: Soft, nontender, nondistended Extremities: Hard edema lower extremities, edema around right elbow and upper arm Neuro: No focal deficits Psych: Cooperative, normal mood Results & Data Results & Data Vital Signs (Past 12 Hours) Vital Signs Temp Pulse Pulse Pulse BP BP Pulse Ox 02/08/24 12:35 60 111/68 02/08/24 12:00 60 103/60 02/08/24 11:30 60 103/62 02/08/24 11:00 60 94/56 L 12/26/24 10:30 60 102/59 L 02/08/24 10:00 60 95/59 L 02/08/24 09:30 64 92/58 L 02/08/24 09:27 62 100/55 L 02/08/24 09:24 36.6 C 65 02/08/24 07:10 36.6 C 61 98/61 L 99 O2 Del Method 02/08/24 12:35 02/08/24 12:00 02/08/24 11:30 02/08/24 11:00 02/08/24 10:30 02/08/24 10:00 02/08/24 09:30 02/08/24 09:27 02/08/24 09:24 02/08/24 07:10 Room Air Diagnostic Findings Reviewed imaging, laboratory and diagnostic studies. Pertinent findings as below.Right upper extremity ultrasound shows thrombus in the right cephalic vein at wrist and mid forearm. Hemoglobin 8.1, stable WBCs and platelets stable INR 1.5 Potassium 3.3
[2024-02-08] MEDS: POTASSIUM CHLORIDE CRTAB 20 MEQ TABCR PO STA ×2 (13:50→18:40)
[2024-02-08] MEDS: WARFARIN SOD 5 MG TAB PO SCH (16:38)
--- NOTE | 2024-02-08 18:25 | Nephrology Progress Note ---
Date of Service February 08, 2024 Assessment & Plan (1) End stage renal disease: Plan: longstanding CKD 5/advanced CKD 4 w/ recurrent JORGE progressing now to ESRD, started HD this admission. pt interested in PD; has not yet had home visit/met w/ surgeon >> some concerns about how he'll do on PD from OP dialysis team; however for now suggest we move forward in a way that makes it easiest for him to pursue PD per his choices. no dialysis access prior to admission -Dr Cutler placed TDC on 02/01; 1st HD same day [facility]; [facility] for in center HD and then possibly PD after d/c from here -changed lasix to torsemide 100 mg daily starting in am -next HD 02/08 or depending on OP availability -K chronically low > will start 20 mEq daily K; not on dialysis diet; K 3.3 today Care coordinated w/ Dr Freeman and hemodialysis technician repeatedly through the day re diuretic dosing, potassium management, discharge dispo; we are in agreement. (2) CHF (congestive heart failure): Plan: had on admission Pulm edema and this is driven mainly by progression of CKD 5 to ESRD. -change lasix to torsemide -CXR this evening to assess for ongoing diuretic needs; CXR images personally reviewed >> improved plm edema but persistent BL pleural effusions > continue diuretics and dialysis (3) Anemia: Plan: has severe anemia of CKD at baseline with h/o GI bleed and now likely GI bleed and High INR. Got PRBC x 2 . hgb 8.1 today Possible EGD today s/p procrit 90611 unit 01/29 transferrin sat 6% as OP 01/18 >> needs Iron IV; got IV iron 01/22 as OP and on standing retacrit OP as well >> s/p venofer load >>getting high dose CHARLES 20K units/ tx w/ HD Admission and Anticipated Discharge Date Admission Date: January 29, 2024 Subjective no acute interval events; tolerated 1.8L UF today. breathing better, edema markedly improved. remains on heparin gtt. knows it may be some time before we could conside rPD Review of Systems 2 Review of Systems: All systems reviewed & are unremarkable except as noted in Subjective Physical Exam 2 Constitutional: well developed (on RA), + frail appearing and cooperative; no acute distress Eyes: EOM intact bilaterally ENMT: Mouth: + dry oral mucous membranes Neck: no nuchal rigidity Respiratory: normal respiratory effort Auscultation: lungs clear to auscultation bilaterally and + diminished lung sounds (marshal R base) Cardiovascular: Rate/Rhythm: regular rate and regular rhythm Extremities: + edema (trace L and w/ L medial calf wrapped) Gastrointestinal (Abdomen): Inspection/Auscultation: normal bowel sounds P ercussion/Palpation: abdomen soft; abdomen nontender Musculoskeletal: Extremities: strength 5/5 throughout Skin: no rashes, warm and dry Psychiatric: Orientation: alert and oriented x 3 Results & Data Vital Signs (Past 12 Hours) Vital Signs Temp Pulse Pulse Pulse BP BP Pulse Ox 02/08/24 13:02 36.4 C L 60 96/55 L 02/08/24 13:00 60 98/58 L 02/08/24 12:30 60 111/68 02/08/24 12:00 60 103/60 02/08/24 11:30 60 103/62 02/08/24 11:00 60 94/56 L 02/08/24 10:30 60 102/59 L 02/08/24 10:00 60 95/59 L 02/08/24 09:30 64 92/58 L 02/08/24 09:27 62 100/55 L 02/08/24 09:24 36.6 C 65 02/08/24 07:10 36.6 C 61 98/61 L 99 O2 Del Method 02/08/24 13:02 02/08/24 13:00 02/08/24 12:30 02/08/24 12:00 02/08/24 11:30 02/08/24 11:00 02/08/24 10:30 02/08/24 10:00 02/08/24 09:30 02/08/24 09:27 02/08/24 09:24 02/08/24 07:10 Room Air Laboratory Results 02/08/24 06:19 02/08/24 06:19 (2) CHF (congestive heart failure) Heart failure chronicity: acute Heart failure type: unspecified Qualified Code(s): I50.9 - Heart failure, unspecified (3) Anemia Anemia type: unspecified type Qualified Code(s): D64.9 - Anemia, unspecified
--- NOTE | 2024-02-08 19:59 | XRay Report ---
Exam(s): XR CXR 1 VIEW EXAM: XR Chest, 1 View CLINICAL HISTORY: Reason for exam: f/u pulm edema. TECHNIQUE: Frontal view of the chest. COMPARISON: 01/29/24 FINDINGS: Lungs: Compared to prior exam, decreased vascular congestion and interstitial opacities suggesting improvement in pulmonary edema. Persistent bibasilar airspace opacities. Pleural space: No pneumothorax. Persistent bilateral pleural effusions. Heart: Persisting cardiomegaly. Bones/joints: Region hardware in the cervical spine. No acute osseous findings as visualized. Tubes, lines and devices: Interval placement of tunneled right-sided supraclavicular hemodialysis catheter. Stable left chest wall ICD with right ventricular lead. IMPRESSION: 1. Compared to prior exam, decreased vascular congestion and interstitial opacities suggesting improvement in pulmonary edema. 2. Persistent bibasilar airspace opacities. 3. Persistent bilateral pleural effusions. 4. Interval placement of tunneled right-sided supraclavicular hemodialysis catheter. Electronically signed by: Kaitlynn Ordonez M.D. 02/08/24 19:58 PM
[2024-02-09 08:00] LABS: Calcium 7.6 mg/dl (8.6-10.3); Creatinine Clr Calc Pharmacy 23.2 ml/min; Potassium 4.2 mmol/L (3.5-5.1)
[2024-02-09 08:02] LABS: ANTI-Xa, UFH(UnfractionatedHep 0.35 IU/ml (0.3-0.7); INR 2.4 (0.9-1.1); Prothrombin Time 24.2 Seconds (9.0-12.0)
--- NOTE | 2024-02-09 08:19 | Hospitalist Progress Note ---
Date of Service February 09, 2024 Assessment & Plan (1) Atrial fibrillation: (2) End stage renal disease: (3) Esophageal ulcer: (4) Acute blood loss anemia: (5) Deep vein thrombosis, upper right extremity: (6) Pancytopenia: (7) Acute heart failure with preserved ejection fraction: (8) CKD (chronic kidney disease) stage 5, GFR less than 15 ml/min: (9) Supratherapeutic INR: (10) Hypocalcemia: (11) Diabetes type 2, controlled: (12) Hypertension: (13) Pacemaker: Plan Mr. Cooley is a 73 year old w/ PMH of GI bleed,TBS s/p pacemaker placement, CKD stage IV, CVA, CHF, hkm-hrnrtyk-ynscsvygi diabetes, HLD, PAF on Coumadin, history of gastric bypass in 2007, iron deficiency anemia, chronic leg wounds presented 01/28 with worsening SOB x1 week and noted to be volume overloaded with symptomatic anemia and supratherapeutic INR with reports of melena. Patient longstanding CKD IV which progresed now to ESRD requiring HD on this admission. TDC placed on 02/01 with HD started inaddition to lasix 80mg IV BID while admitted and plans to transitioned to torsemide 100mg daily. GI scoped patient on 01/30 which revealed multiple esophageal ulcers with stigmata of bleeding. Patient continued on PPI IV BID. Hgb remaining stable at around ~8 since admission. Will plan for HD on Monday, Monday, and Monday Daughter will pepper picker tomorrow at noon. He is being managed for the following: #Symptomatic anemia 2/2 UGIB, esophageal ulcers Hgb on arrival 6.4; baseline 8.0. FOBT +ve, complains for dark stool for a while. Recent anemia w/u 01/18: Fe+ 18, TIBC 298, Transferrin 6 Received iv venofer 300mg 01/28. s/p 2 packed RBC. Hb stable around 8 Patient underwent EGD on linear and cratered esophageal ulcer with stigmata of recent bleeding were found in middle third of the esophagus. Mild esophageal ulceration deep kissing on both side of the middle esophagus. Mild irritation of residual stomach and jejunum with no ulceration. Continue IV PPI twice daily for now; changed to oral at discharge Transfuse hgb < 7.0 receives CHARLES per nephrology repeat cbc in am #Right cephalic DVT RUE swelling noted, on coumadin #Supratherapeutic INR *resolved #AFib on Coumadin Patient started on heparin on 02/05/2024; Coumadin added on 02/06/2024. Hemoglobin is currently stable He presented with significantly elevated INR of 8; will need close follow-up with anticoagulation clinic for dosage adjustment after discharge. Started on Coumadin of 2.5 mg once a day discontinue heparin drip as INR 2.4 INR in am #ESRD, new to HD this admission #Volume overload iso worsening CKD #Hypocalcemia and hyperphosphatemia iso progressive CKD Baseline Cr around 3-4.5; admitting creatinine around 5. Most recent ECHO 06/16/23: EF 55-60%, mild LVH, mild MR, mild-moderate TR. Status post insertion of permacath in right internal jugular vein on 02/02/2024. underwent first session of dialysis on 02/02/2024. Outpatient dialysis being set up with help of case management. Nephrology recommended torsemide 100 mg once a day at the time of the discharge; currently on IV Lasix 80 mg twice a day On K supplementation #Chronic leg wounds: monitor, was given doxycycline for 7 days. #s/p Gastric bypass: #Nax-arsinka-ibzxdrpoc diabetes mellitus: [place] [facility] [place] came off of insulin after his procedure Does not take any oral agents Monitor blood glucose #HTN: Chronic. Takes metoprolol; continue #HLD: Takes atorvastatin; continue 3Tachybradycardia syndrome, Status post pacemaker: c/w home cardiac meds as able. Disposition: PCP: Jocelyne Desai PA-C CODE STATUS: Full code VTE prophylaxis-[facility] home health with Admission and Anticipated Discharge Date Admission Date: January 29, 2024 Subjective NAEO Reports no chest pain, sob, or other issues Physical Exam Constitutional: WD/WN, vitals as above Neck: right subclavian HD cath Respiratory: normal respiratory effort, lungs clear to auscultation Cardiovascular: RRR, no murmur, no edema Musculoskeletal: RUE swelling, pulse palpable Results & Data Results & Data Vital Signs (Past 12 Hours) Vital Signs Temp Pulse Pulse Resp BP BP Pulse Ox 02/09/24 07:09 36.6 C 64 16 114/70 98 02/08/24 22:28 02/08/24 20:26 36.4 C L 61 14 111/69 99 O2 Del Method 02/09/24 07:09 Room Air 02/08/24 22:28 Room Air 02/08/24 20:26 Room Air Laboratory Results [facility] 02/09/24 07:20 Sodium 136 Potassium 4.2 D Chloride 100 Carbon Dioxide 29 BUN 28 H Creatinine 3.50 H D Glucose 98 Calcium 7.6 L Medications Administered Home Medications Medication Instructions Recorded Confirmed Last Taken pediatric yjzerafv-gdka-svy 1 tab PO PM ##0 04/11/13 01/29/24 07/31/23 (Flintstones Complete (iron) chewable tablet) atorvastatin 40 mg tablet 40 mg PO PM #0 tabs 01/08/17 01/29/24 07/31/23 cholecalciferol (vitamin D3) 25 2,000 unit PO PM 10/18/17 01/29/24 07/31/23 mcg (1,000 unit) capsule (Vitamin D3) cyanocobalamin (vitamin B-12) 1,000 mcg PO PM 05/06/19 01/29/24 07/31/23 1,000 mcg tablet tamsulosin 0.4 mg capsule 0.4 mg PO PM 05/06/19 01/29/24 07/31/23 magnesium oxide 400 mg PO QAM 09/26/19 01/29/24 08/01/23 acetaminophen 500 mg tablet 1,000 mg PO Q6H PRN Pain 12/17/20 01/29/24 12/27/20 aspirin 81 mg tablet 81 mg PO DAILY 12/21/20 01/29/24 07/31/23 warfarin 3 mg tablet See Rx Instructions .Route .COMPLEX 10/07/22 01/29/24 07/31/23 metoprolol succinate 25 mg 25 mg PO QAM #30 tabs 10/16/22 01/29/24 08/01/23 tablet,extended release 24 hr L.acidop,casei,lactis,rham-B.lact,scot 1 cap PO DAILY #30 caps 08/07/23 01/29/24 Unknown 625 mg (10 billion cell) capsule (Advanced Probiotic) cyclobenzaprine 10 mg tablet 10 mg PO Q8H PRN Muscle Spasms 10/21/23 01/29/24 Unknown oxycodone 5 mg tablet 5 mg PO Q6H PRN Pain 10/21/23 01/29/24 Unknown potassium chloride 20 mEq 20 meq PO UD #30 tabs 10/24/23 01/29/24 07/31/23 tablet,extended release(part/cryst) torsemide 20 mg tablet 20 mg PO UD #30 tabs 10/24/23 01/29/24 Unknown Active Medications Generic Name Dose Route Start Last Admin Trade Name Freq PRN Reason Stop Dose Admin Acetaminophen 650 mg 01/29/24 13:02 02/08/24 12:13 Acetaminophen 325 Mg Tab PO 02/28/24 13:01 650 mg Q4H PRN Administration Pain or Fever Al Hydrox/Mg Hydrox/Simethicone 15 ml 02/03/24 10:48 02/03/24 20:15 Aluminum/Magnesium Susp 30 Ml Udc PO 03/04/24 10:47 15 ml Q6H PRN Administration Heartburn Atorvastatin Calcium 40 mg 01/29/24 21:00 02/08/24 21:09 Atorvastatin 40 Mg Tab PO 02/28/24 20:59 40 mg PM COOKIE Administration Cyanocobalamin 1,000 mcg 01/29/24 21:00 02/08/24 21:09 Cyanocobalamin (B-12) 500 Mcg Tablet PO 02/28/24 20:59 1,000 mcg QPM COOKIE Administration Insulin Aspart 0 units 01/31/24 16:30 02/09/24 12:05 Insulin Aspart Per Unit Charge SC 03/01/24 16:29 1 units ACHS COOKIE Administration Magnesium Oxide 400 mg 01/30/24 12:00 02/09/24 12:06 Magnesium Oxide 400 Mg Tab PO 02/29/24 11:59 400 mg DAILY@1200 COOKIE Administration Metoprolol Succinate 25 mg 01/30/24 09:00 02/09/24 08:39 Metoprolol Succ 25mg Ext Rel Tab PO 02/29/24 08:59 25 mg QAM COOKIE Administration Miconazole Nitrate 1 appln 02/01/24 16:18 02/01/24 18:38 Miconazole Nitrate Powder 85 Gm EXT 03/02/24 16:17 1 appln PRN PRN Administration Affected Skin Folds Ondansetron HCl 4 mg 01/29/24 13:02 02/03/24 10:03 Ondansetron Inj 2 Mg/Ml 2 Ml Vial IV 02/28/24 13:01 4 mg Q6H PRN Administration Nausea Oxycodone HCl 5 mg 01/29/24 13:35 02/09/24 07:19 Oxycodone Hcl Ir 5 Mg Tab (Immediate Release) PO 02/12/24 13:34 5 mg Q6H PRN Administration Pain Pantoprazole Sodium 40 mg 02/07/24 21:00 02/09/24 08:39 Pantoprazole 40 Mg Tab PO 03/08/24 20:59 40 mg BID COOKIE Administration Potassium Chloride 20 meq 02/09/24 09:00 02/09/24 08:39 Potassium Chloride Crtab 20 Meq Tabcr PO 03/10/24 08:59 20 meq QAM COOKIE Administration Tamsulosin HCl 0.4 mg 01/29/24 21:00 02/08/24 21:09 Tamsulosin Hcl 0.4 Mg Cap PO 02/28/24 20:59 0.4 mg PM COOKIE Administration Torsemide 100 mg 02/09/24 09:00 02/09/24 08:39 Torsemide 100 Mg Tab PO 03/10/24 08:59 100 mg QAM COOKIE Administration Trolamine Salicylate 1 appln 02/09/24 10:00 02/09/24 10:29 Trolamine Salicylate 10% Crm 255 Appln/85 Gm Tube EXT 03/10/24 09:59 1 appln Q8 COOKIE Administration
[2024-02-09] MEDS: TORSEMIDE 100 MG TAB PO SCH (08:39)
[2024-02-09] MEDS: POTASSIUM CHLORIDE CRTAB 20 MEQ TABCR PO SCH (08:39)
[2024-02-09] MEDS: TROLAMINE SALICYLATE 10% CRM 255 APPLN/85 GM TUBE EXT SCH (10:29)
[2024-02-09] MEDS: EPOETIN ALFA 20,000 UNITS/ML VIAL IV ONE (15:25)
[2024-02-09] MEDS: WARFARIN SOD 2.5 MG TAB PO SCH (17:26)
--- NOTE | 2024-02-09 18:02 | Nephrology Progress Note ---
Date of Service February 09, 2024 Assessment & Plan (1) End stage renal disease: Plan: longstanding CKD 5/advanced CKD 4 w/ recurrent JORGE progressing now to ESRD, started HD this admission. pt interested in PD; has not yet had home visit/met w/ surgeon >> some concerns about how he'll do on PD from OP dialysis team; however for now suggest we move forward in a way that makes it easiest for him to pursue PD per his choices. no dialysis access prior to admission -Dr Cutler placed TDC on 02/01; 1st HD same day -for first ICHD lety 02/10 (monday d/t schedule) at 1100; [facility] for in center HD and then possibly PD after d/c from here -changed lasix to torsemide 100 mg daily starting today -next HD today to facilitate Monday OP start -K chronically low > continue 20 mEq daily K; not on dialysis diet; K 4.2 today NEPHRO D/C RECS -d/c on torsemide 100 mg daily and 20 mEq K on MWF -d/c on 1.5 L FR and <2 gm daily Na diet -first HD on -no need for CKD clinic f/u w/ me since he'll be seen on HD Care coordinated w/ Dr Keller repeatedly through the day re potassium management, discharge dispo, next HD treatment timing via phone; we are in agreement. (2) CHF (congestive heart failure): Plan: had on admission Pulm edema and this is driven mainly by progression of CKD 5 to ESRD. -cont dialysis and torsemide -CXR last evening w/ improved plm edema but persistent BL pleural effusions >> chronic issue and one we canwork on as OP (3) Anemia: Plan: has severe anemia of CKD at baseline with h/o GI bleed and now likely GI bleed and High INR. Got PRBC x 2 . hgb 8.1 yesterday Possible EGD today s/p procrit 47210 unit 01/29 transferrin sat 6% as OP 01/18 >> needs Iron IV; got IV iron 01/22 as OP and on standing retacrit OP as well >> s/p venofer load >>getting high dose CHARLES 20K units/ tx w/ HD Admission and Anticipated Discharge Date Admission Date: January 29, 2024 Subjective no interval events clinically. tolerated HD yesterday. ambulating today outside room w / walker; felt good. not light headed or dizzy. for HD again today to get 3 txs in for this week and be ready for holiday OP schedule. edema persists but better Review of Systems 2 Review of Systems: All systems reviewed & are unremarkable except as noted in Subjective Physical Exam 2 Constitutional: well developed (on RA), + frail appearing and cooperative; no acute distress Eyes: EOM intact bilaterally ENMT: Mouth: + dry oral mucous membranes Neck: no nuchal rigidity Respiratory: normal respiratory effort Auscultation: lungs clear to auscultation bilaterally and + diminished lung sounds Cardiovascular: Rate/Rhythm: regular rate and regular rhythm Extremities: + edema (trace L and w/ L medial calf wrapped) Gastrointestinal (Abdomen): Inspection/Auscultation: normal bowel sounds P ercussion/Palpation: abdomen soft; abdomen nontender Musculoskeletal: Extremities: strength 5/5 throughout Skin: BL lesions L > R wrapped Psychiatric: Orientation: alert and oriented x 3 Results & Data Vital Signs (Past 12 Hours) Vital Signs Temp Pulse Pulse Pulse Resp BP BP 02/09/24 17:20 36.5 C 61 18 02/09/24 17:10 36.6 C 61 112/68 02/09/24 17:00 63 138/66 02/09/24 16:30 60 108/65 02/09/24 16:00 60 106/64 02/09/24 15:30 60 113/69 02/09/24 15:00 60 106/63 02/09/24 14:30 60 105/62 02/09/24 14:00 60 103/65 02/09/24 13:46 61 112/68 02/09/24 13:41 36.8 C 64 02/09/24 07:09 36.6 C 64 16 BP Pulse Ox O2 Del Method 02/09/24 17:20 109/68 99 Room Air 02/09/24 17:10 02/09/24 17:00 02/09/24 16:30 02/09/24 16:00 02/09/24 15:30 02/09/24 15:00 02/09/24 14:30 02/09/24 14:00 02/09/24 13:46 02/09/24 13:41 02/09/24 07:09 114/70 98 Room Air Laboratory Results 02/08/24 06:19 02/09/24 07:20 (2) CHF (congestive heart failure) Heart failure chronicity: acute Heart failure type: unspecified Qualified Code(s): I50.9 - Heart failure, unspecified (3) Anemia Anemia type: unspecified type Qualified Code(s): D64.9 - Anemia, unspecified
[2024-02-10 06:02] LABS: Basophils # (auto) 0.02 K/uL (0.00-0.20); Basophils % (auto) 0.6 %; Eosinophils # (auto) 0.09 K/uL (0.00-0.50); Eosinophils % (auto) 2.7 %; Hematocrit (blood only) 27.8 % (42.0-52.0); Hemoglobin 8.4 g/dl (14.0-18.0); Immature Granulocytes # (auto) 0.01 K/uL (0.01-0.20); Immature Granulocytes % (auto) 0.3 %; Lymphocytes # (auto) 0.91 K/uL (1.20-3.40); Lymphocytes % (auto) 26.8 %; Mean Corpuscular Hemoglobin 28.7 pg (25.0-34.0); Mean Corpuscular Hgb Conc 30.2 g/dL (32.0-36.0); Mean Corpuscular Volume 94.9 fL (80.0-100.0); Mean Platelet Volume 10.8 fL (9.4-12.4); Monocytes # (auto) 0.49 K/uL (0.11-0.59); Monocytes % (auto) 14.5 %; Neutrophils # (auto) 1.87 K/uL (1.40-6.50); Neutrophils % (auto) 55.1 %; Platelet Count 92 K/uL (130-400); RDW Coefficient of Variation 19.5 % (11.5-14.5); RDW Standard Deviation 67.1 fL (36.4-46.3); Red Blood Count 2.93 M/uL (4.70-6.10); White Blood Count 3.39 K/ul (4.8-10.8)
[2024-02-10 06:30] LABS: ANTI-Xa, UFH(UnfractionatedHep < 0.10 IU/ml (0.3-0.7); Prothrombin Time 29.8 Seconds (9.0-12.0)
[2024-02-10 07:20] VITALS: BP 120/74; PULSE 67; RESP 18; TEMP 97.9; O2SAT 97
--- NOTE | 2024-02-10 08:02 | Discharge Summary ---
Discharge Summary Date of Service February 10, 2024 Principal Dx & Hospital Course #1 = Principal Diagnosis (1) Atrial fibrillation: (2) End stage renal disease: (3) Esophageal ulcer: (4) Acute blood loss anemia: (5) Deep vein thrombosis, upper right extremity: (6) Pancytopenia: (7) Acute heart failure with preserved ejection fraction: (8) CKD (chronic kidney disease) stage 5, GFR less than 15 ml/min: (9) Supratherapeutic INR: (10) Hypocalcemia: (11) Diabetes type 2, controlled: (12) Hypertension: (13) Pacemaker: Plan Mr. Cooley is a 73 year old w/ PMH of GI bleed,TBS s/p pacemaker placement, CKD stage IV, CVA, CHF, pme-kklhiyh-niobwceaa diabetes, HLD, PAF on Coumadin, history of gastric bypass in 2007, iron deficiency anemia, chronic leg wounds presented 01/28 with worsening SOB x1 week and noted to be volume overloaded with symptomatic anemia and supratherapeutic INR with reports of melena. Patient longstanding CKD IV which progresed now to ESRD requiring HD on this admission. TDC placed on 02/01 with HD started inaddition to lasix 80mg IV BID while admitted and plans to transitioned to torsemide 100mg daily. GI scoped patient on 01/30 which revealed multiple esophageal ulcers with stigmata of bleeding. Patient continued on PPI IV BID. Hgb remaining stable at around ~8 since admission. Will plan for HD on Monday, Monday, and Monday He is being managed for the following: #Symptomatic anemia 2/2 UGIB, esophageal ulcers Hgb on arrival 6.4; baseline 8.0. FOBT +ve, complains for dark stool for a while. Recent anemia w/u 01/18: Fe+ 18, TIBC 298, Transferrin 6 Received iv venofer 300mg 01/28. s/p 2 packed RBC. Hb stable around 8 Patient underwent EGD on linear and cratered esophageal ulcer with stigmata of recent bleeding were found in middle third of the esophagus. Mild esophageal ulceration deep kissing on both side of the middle esophagus. Mild irritation of residual stomach and jejunum with no ulceration. discharged on oral PPI BID receives CHARLES per nephrology #Right cephalic DVT RUE swelling noted, on coumadin #Supratherapeutic INR *resolved #AFib on Coumadin Patient started on heparin on 02/05/2024; Coumadin added on 02/06/2024. Hemoglobin is currently stable INR follow up OP #ESRD, new to HD this admission #Volume overload iso worsening CKD #Hypocalcemia and hyperphosphatemia iso progressive CKD Baseline Cr around 3-4.5; admitting creatinine around 5. Most recent ECHO 06/16/23: EF 55-60%, mild LVH, mild MR, mild-moderate TR. Status post insertion of permacath in right internal jugular vein on 02/02/2024. underwent first session of dialysis on 02/02/2024. Outpatient dialysis being set up with help of case management. Nephrology recommended torsemide 100 mg once a day at the time of the discharge; currently on IV Lasix 80 mg twice a day On K supplementation #Chronic leg wounds: monitor, was given doxycycline for 7 days. #s/p Gastric bypass: #Wac-rtwmohi-mdfgtwdev diabetes mellitus: 2007 Anders-en-Y at [facility] [place] [facility] [place] he came off of insulin after his procedure Does not take any oral agents Monitor blood glucose #HTN: Chronic. Takes metoprolol; continue #HLD: Takes atorvastatin; continue #Tachybradycardia syndrome, Status post pacemaker: c/w home cardiac meds as able. Notes For Next Care Provider INR check 02/11 Started HD 02/01 EGD with two esophageal ulcers -d/c on 1.5 L FR and <2 gm daily Na diet -first OP HD on -no need for CKD clinic f/u w/ me since he'll be seen on HD Medication Changes From Visit Hold aspirin iso ulcers Protonix 40mg BID Increased torsemide from 20mg to 100mg daily Admission HPI Per Admitting Provider Mr. Cooley is a 73 year old male that presents to the ED with worsening SOB x1 week. He has a PMH that includes: GI bleed, tachybradycardia syndrome status post pacemaker placement, CKD stage IV, history of CVA, CHF, ctr-yclbyst-osbokkczc diabetes, HLD, PAF, history of gastric bypass in 2007, iron deficiency anemia, chronic leg wounds. On arrival, he was Found to be in volume overload with symptomatic anemia with a subtherapeutic INR for which she takes Coumadin for his paroxysmal A-fib. He has had numerous admissions this year with the most recent being 10/21/23 for similar symptoms including worsening renal function. He has been followed by GI and Nephro as an outpatient with plans to start hemo vs peritoneal dialysis. He has been seen by Vascular In the ED he was found to be anemic with a hemoglobin of 6.4; baseline 8. Additionally his INR was 8.4 and his creatinine is 4.98 with a baseline of 2.9- 4.5. His creatinine has been worsening over the past few months and it was expected per nephrology that he may require dialysis moving forward. In the past, he has had the following procedures: EGD 2007:- Z-line regular, 45 cm from the incisors. - No gross lesions in esophagus. - Stenosed Anders-en-Y gastrojejunostomy was found. EGD 2023: - Normal esophagus. - Z-line regular. - Gastric bypass with a normal-sized pouch. Gastrojejunal anastomosis characterized by healthy appearing mucosa. - Normal examined jejunum Colonoscopy 2010: - Preparation of the colon was poor. - Stool entire examined colon. - The examination was otherwise normal Colonoscopy 2021: - The examined portion of the ileum was normal. - The entire examined colon is normal on direct and retroflexion views. - No specimens collected In the past, he has had the following in the ED there was no leukocytosis calcium level was low at 6.9. ECG showed a pacemaker without ischemia. Initial troponin was negative. No transaminitis noted. Chest x-ray does indicate pleural effusions with heart failure. Patient will be admitted for further evaluation and management for an acute GI bleed. He is short of breath secondary to his anemia and CHF. He was given IV vitamin K and Kcentra in the ED to reverse his elevated INR. He was started on a Protonix drip and given IV calcium gluconate. He did receive 1 unit of packed red blood cells. Admission Exam Per Admitting Provider Physical Exam: Vitals signs as noted above General Appearance: Chronically ill-appearing, no apparent distress Head: normocephalic, Atraumatic Eyes: normal inspection, EOMI,+ pallor Neck: supple, Trachea midline,+ JVD Respiratory/Chest: Decreased breath sounds, basal crackles bilaterally, No accessory muscle use Cardiovascular: S1, S2, No murmur,+ pacemaker Abdomen/GI:Soft, Non tender, Bowel sounds present Extremities/Musculoskeletal:normal inspection, B/L LE Wounds, 2-3+ Edema, R great Toe S/P amputation Neurologic/Psych:AAOX3, grossly no focal neurological deficits Skin: normal color, warm Discharge Exam Constitutional WD/WN, vitals as above Respiratory normal respiratory effort, lungs clear to auscultation Cardiovascular RRR, no murmur, no edema Updated Medication List Medication Instructions Recorded Confirmed Type pediatric ywgxtxaz-vlik-axp 1 tab PO PM ##0 04/11/13 01/29/24 History (Flintstones Complete (iron) chewable tablet) atorvastatin 40 mg tablet 40 mg PO PM #0 tabs 01/08/17 01/29/24 History cholecalciferol (vitamin D3) 25 2,000 unit PO PM 10/18/17 01/29/24 History mcg (1,000 unit) capsule (Vitamin D3) cyanocobalamin (vitamin B-12) 1,000 mcg PO PM 05/06/19 01/29/24 History 1,000 mcg tablet tamsulosin 0.4 mg capsule 0.4 mg PO PM 05/06/19 01/29/24 History magnesium oxide 400 mg PO QAM 09/26/19 01/29/24 History acetaminophen 500 mg tablet 1,000 mg PO Q6H PRN Pain 12/17/20 01/29/24 History aspirin 81 mg tablet 81 mg PO DAILY 12/21/20 01/29/24 History warfarin 3 mg tablet See Rx Instructions .Route .COMPLEX 10/07/22 01/29/24 History metoprolol succinate 25 mg 25 mg PO QAM #30 tabs 10/16/22 01/29/24 Rx tablet,extended release 24 hr L.acidop,casei,lactis,rham-B.lact,scot 1 cap PO DAILY #30 caps 08/07/23 01/29/24 Rx 625 mg (10 billion cell) capsule (Advanced Probiotic) cyclobenzaprine 10 mg tablet 10 mg PO Q8H PRN Muscle Spasms 10/21/23 01/29/24 History oxycodone 5 mg tablet 5 mg PO Q6H PRN Pain 10/21/23 01/29/24 History potassium chloride 20 mEq 20 meq PO UD #30 tabs 10/24/23 01/29/24 Rx tablet,extended release(part/cryst) pantoprazole 40 mg tablet,delayed 40 mg PO BID 30 days #60 tabs 02/10/24 Rx release torsemide 100 mg tablet 100 mg PO QAM 30 days #30 tabs 02/10/24 Rx trolamine salicylate 10 % topical 1 applic EXT Q8 #85 grams 02/10/24 Rx cream (Myoflex) Hospital Stay Data Consultations 01/29/24 13:02 Consult Gastroenterology Routine Consult Nephrology Routine 01/29/24 13:05 ED Decision to Admit Stat 01/31/24 10:49 Consult Vascular Surgery Routine Procedures Performed Operation Date: 02/02/24 09:00 Actual Procedures p Insertion Perm Catheter, Right Internal Jugular Approach, Ultrasound Localization of Right Internal Jugular Vein, Fluoroscopy for Positioning, Moderate Sedatin 09:10 - 09:40(Right) - Ac Cutler MD Diagnostic Imagining Performed 02/02/24 07:43 EV cvc insrt tunnel wo prt/supervisor drapery hanging Routine US EV guide vascular access Routine 02/07/24 12:04 US venous duplex arm [US venous doppler UE RT] Routine Pending Results Patient Have Any Pending Studies at Discharge: No Discharge Instructions Given to Patient (Per Discharging Provider) You were admitted for shortness of breath and found to have anemia. You underwent a scope by Gastroenterology which revealed esophageal ulcers, likely contributing to your low blood count. You were started on dialysis as well this admission. Your schedule will be Mon, Monday, Monday this week due to the Holiday. You will need to continue on pantoprazole 40mg two times a day. Please follow up with GI in 1-2 months. Request referral from PCP for [facility] for repeat scope You will increase the Torsemide dosing from 20mg daily to 100mg daily. please follow up with your Anticoag clinic to monitor your INR. You can have home health check an INR on Sunday 02/11 Total Time Total Time Spent Total Time Spent (In Minutes): 35
== END 2024-02-10 13:00 | disposition home health service (06) | DRG 380 ==
LOC: ED 10:53 → SUATTDRO 13:02 → 2S 13:02 → 3E 02-07 20:46